=== PATIENT | female | born 1950 | race Caucasian/White ===

== ENCOUNTER → 2017-03-16 | Outpatient (CLI) | payer OTHER, BC ==
[~2017-03-16] MED LIST: AMOX500C3 PO; AMX500 PO; ASPI325T39 PO; ASPI81TA28 PO; BACLOFEN PUMP; CEFD1CAP14 PO; CEFD300C2 PO; CHOL100027 PO; CIPR-255 PO; CIPR1TAB11 PO; CMD5 PO; CNT PO; CPXI SQ; DALF10TA PO; ESCI1TAB10 PO; FRS/40 PO; FSMD/70 PO; LVNIS80 SQ; MULT-513 PO; OXYB10TA13 PO; OXYB15TA12 PO; PRED10TA PO; RISE1TAB33 PO; RISETAB3 PO; SULF800T23 PO; WARF-246 PO; ZNF4 PO
[2017-03-16 19:32] LABS: BLOOD UREA NITROGEN 26 mg/dl (7-18); CREATININE 0.84 mg/dl (0.60-1.20)
--- NOTE | 2017-03-17 06:40 | CODING QUERY NO DIAGNOSIS ---
TREATMENT RENDERED WITHOUT A DIAGNOSIS Dr. Garcia, To promote full compliance with coding requirements relating to patient care, physician participation is requested in all cases of school bus dispatcher uncertainty. Please assist us with providing a diagnosis/symptom for the test(s) below: A diagnosis/symptom was not documented on your Order. A valid diagnosis/symptom is required to bill all insurances. Please remember that we are unable to code a diagnosis of rule out, probable, possible, questionable, or suspected. Tests that require a diagnosis: * B.U.N. DIAGNOSIS: * CREATININE DIAGNOSIS: DATE OF SERVICE: 03/16/17 Provider Signature: Date: Thank you Arsen Watson [facility] Information Management Once completed, please kindly fax back to [phone] For questions please call [phone]
== END | disposition home or self-care (01) ==
LOC: C.LABBC 14:25
PROVIDERS: ATTEND Emergency Medicine
DX: M86.662 Other chronic osteomyelitis, left tibia and fibula (principal); G35 Multiple sclerosis; L97.329 Non-pressure chronic ulcer of left ankle with unspecified severity

== ENCOUNTER → 2017-03-17 | Outpatient (CLI) | payer OTHER, BC ==
[~2017-03-17] MED LIST changes: -CIPR-255 PO; +GADAVIST IV PRN
--- NOTE | 2017-03-17 08:57 | DIAGNOSTIC IMAGING REPORT ---
MRI left ankle LEFT LOWER EXT NON JOINT COMBO CLINICAL HISTORY: LT FT NON HEALING WOUND R/O OSTEO TECHNIQUE: MRI multi axial acquisition COMPARISON STUDY: None FINDINGS: Findings consistent with soft tissue edema lateral to the distal fibula. This shows moderate postcontrast enhancement. A drainable abscess or collection is not appreciated. Trace amount of periostitis involving the distal aspect of the fibula. There is a trace amount of bone marrow edema of the lateral aspect of the distal fibula. This is not felt to be sufficient to indicate osteomyelitis. No definite bony destruction is appreciated. Ankle mortise is aligned anatomically. Findings of moderate degenerative change of the articular services throughout. Collateral ligaments structures appear to be intact. Subtalar joint is intact. Mild degenerative change of the intertarsal joints. IMPRESSION: 1. Findings consistent with focal soft tissue cellulitis immediately lateral to the distal fibula. 2. Mild reactive periostitis of the distal fibula with a trace amount of reactive bone marrow edema. 3. No sufficient evidence to indicate osteomyelitis at the current time. 4. Moderate generalized degenerative change throughout . 5. No evidence for drainable abscess or collection Electronically signed by: Morales Esparza M.D. 03/17/2017 8:55 AM Dictated Date/Time: 03/17/2017 8:51 AM
== END | disposition home or self-care (01) ==
LOC: C.MRIBC 07:01
PROVIDERS: ATTEND Emergency Medicine
DX: S91.002A Unspecified open wound, left ankle, initial encounter (principal); X58.XXXA Exposure to other specified factors, initial encounter

== ENCOUNTER 2017-04-14 14:56 | Inpatient (IN) | payer OTHER, BC ==
[~2017-04-14] VITALS: Ht 168.9 cm; Wt 71.6 kg
[~2017-04-14 14:56] MED LIST changes: -AMX500 PO; -ASPI325T39 PO; -BACLOFEN PUMP; -CEFD1CAP14 PO; -CEFD300C2 PO; -CHOL100027 PO; -CIPR1TAB11 PO; -CMD5 PO; -CPXI SQ; -DALF10TA PO; -ESCI1TAB10 PO; -FRS/40 PO; -FSMD/70 PO; -GADAVIST IV PRN; -LVNIS80 SQ; -MULT-513 PO; -OXYB10TA13 PO; -OXYB15TA12 PO; -PRED10TA PO; -RISE1TAB33 PO; -SULF800T23 PO; -WARF-246 PO; -ZNF4 PO
[2017-04-14] MEDS ORDERED: ACETAMINOPHEN 500 MG TAB PO STA (15:21)
[2017-04-14] MEDS ORDERED: SODIUM CHLORIDE 0.9% 500ML 500 ML IV STA (15:21)
[2017-04-14 15:45] LABS: BASO % 0.1 %; BASO ABS # 0.01 K/uL (0-0.2); COMPLETE YES; EOS % 0.1 %; HEMATOCRIT 37.5 % (37-47); IG% 0.2 %; LYMPH % 9.5 %; LYMPH ABS # 0.78 K/uL (1.2-3.4); MEAN CELL VOLUME 96.2 fL (80-100); MEAN CORPUSCULAR HEMOGLOBIN 30.8 pg (25-34); MEAN PLATELET VOLUME 9.1 fL (7.4-10.4); MONO % 3.4 %; NEUT % 86.7 %; PLATELET COUNT 279 K/uL (130-400); WHITE BLOOD COUNT 8.24 K/uL (4.8-10.8)
--- NOTE | 2017-04-14 15:45 | DIAGNOSTIC IMAGING REPORT ---
CHEST ONE VIEW PORTABLE CLINICAL HISTORY: Atypical chest pain. Arrhythmia. COMPARISON STUDY: 01/31/2014 FINDINGS: The cardiac and mediastinal contours are normal. There is no evidence of focal pulmonary consolidation. There is no evidence of failure. No pleural effusions are visualized.[ There is minor left basilar atelectasis/scarring. There is a scoliosis. IMPRESSION: No active disease in the chest. Electronically signed by: Alvaro Chawla M.D. 04/14/2017 3:43 PM Dictated Date/Time: 04/14/2017 3:43 PM
[2017-04-14 16:10] LABS: BLOOD UREA NITROGEN 26 mg/dl (7-18); BUN/CREATININE RATIO 31.3 (10-20); CALCIUM 8.5 mg/dl (8.5-10.1); CARBON DIOXIDE 27 mmol/L (21-32); CHLORIDE 108 mmol/L (98-107); CREATININE 0.83 mg/dl (0.60-1.20); GLUCOSE 130 mg/dl (70-99); POTASSIUM 4.2 mmol/L (3.5-5.1); SODIUM 141 mmol/L (136-145)
[2017-04-14 16:21] LABS: CKMB/CK RATIO 2.3 (0-3.0)
[2017-04-14] MEDS ORDERED: OPTIRAY 320 IV PRN (16:45)
[2017-04-14 17:00] LABS: URINE APPEARANCE CLEAR (CLEAR); URINE BILIRUBIN NEG (NEG); URINE COLOR YELLOW; URINE NITRITE NEG (NEG); URINE SPECIFIC GRAVITY 1.014 (1.000-1.030); UROBILINOGEN NEG (NEG); ZZUR CULT IF INDIC CLEAN CATCH NO
[2017-04-14 17:03] LABS: MANUAL MICROSCOPIC REQUIRED? NO; REVIEW REQ? NO
--- NOTE | 2017-04-14 17:17 | DIAGNOSTIC IMAGING REPORT ---
CHEST CTA for PULMONARY ARTERIES CT DOSE: 190.56 mGy.cm HISTORY: Chest pain dyspnea TECHNIQUE: Multiaxial CT images of the chest were performed following the intravenous administration of contrast to evaluate the pulmonary arteries. Maximal intensity projection images were also obtained. COMPARISON STUDY: None. FINDINGS: Thoracic aorta shows moderate atherosclerotic change. Evaluation of the pulmonary arterial vasculature demonstrates filling defects in the right upper lobe is as well as the third order vessels of the left lower lobe. A major central embolus is not appreciated. There are emphysematous and chronic interstitial changes throughout both hemithoraces. There are considerable degenerative changes of the thoracic spine. No acute compression deformity is appreciated. IMPRESSION: 1. Study is positive for several second-order pulmonary emboli bilaterally. 2. No evidence for major central pulmonary embolus. 3. Interstitial change bilaterally components of which are chronic 4. 1 cm nodular density right base medially adjacent to the right hemidiaphragm. Routine follow-up per Fleischner criteria is suggested. Please refer to below summary of Fleischner criteria recommendations for follow-up of incidental CT nodules (Jasmina Abel, Guidelines for management of small pulmonary nodules detected on CT scans: A statement from the Fleischner Society, Radiology 237: [phone].) SOLID NODULES Solitary nodule size: <6 mm * low risk patients: no follow-up needed * high risk patients: optional CT at 12 months Solitary nodule size: 6-8 mm * low risk patients: follow-up at 6-12 months, then consider further follow-up at 18-24 months * high risk patients: initial follow-up CT at 6-12 months and then at 18-24 months if no change Solitary nodule size: >8 mm * either low or high risk patients - consider follow-up CT at 3 months, and/or CT-PET, and/or biopsy Multiple nodules size: <6 mm * low risk patients: no routine follow-up * high risk patients: optional CT at 12 months Multiple nodules size: 6-8 mm * low risk patients: follow-up at 3-6 months, then consider further follow-up at 18-24 months * high risk patients: follow-up at 3-6 months, then at 18-24 months if no change Multiple nodules size: >8 mm * low risk patients: follow-up at 3-6 months, then consider further follow-up at 18-24 months * high risk patients: follow-up at 3-6 months, then at 18-24 months if no change Note: newly detected indeterminate nodule in persons 35 years of age or older. * Low risk patients: minimal or absent history of smoking and/or other known risk factors * high risk patients: history of smoking or of other known risk factors (e.g. first degree relative with lung cancer, or exposure to asbestos, radon, uranium) * if a nodule up to 8 mm is partly solid or is ground glass further follow-up is required after 24 months to exclude possible slow growing adenocarcinoma (JOSE) SUBSOIL NODULES Solitary pure ground-glass nodule * nodule size <6 mm - no CT follow-up required * nodule size >=6 mm - follow-up CT at 6-12 months, then every 2 years until 5 years Solitary part-solid nodule * nodule size <6 mm - no CT follow-up required * nodule size >=6 mm - follow-up CT at 3-6 months. If unchanged, and solid component remains <6 mm, then annual follow-up for 5 years Multiple subsolid nodules * nodule size <6 mm - follow-up CT at 3-6 months, consider further follow-up at 2 and 4 years if stable * nodule size >=6 mm - follow-up CT at 3-6 months, subsequent management based on the most suspicious nodule(s) Electronically signed by: Morales Esparza M.D. 04/14/2017 5:16 PM Dictated Date/Time: 04/14/2017 5:12 PM
[2017-04-14 17:40] LABS: PROTHROMBIN TIME (PATIENT) 10.8 SECONDS (9.0-12.0)
[2017-04-14] MEDS ORDERED: ASPI325T39 PO (18:14)
[2017-04-14] MEDS ORDERED: RISE1TAB33 PO (18:14)
[2017-04-14] MEDS ORDERED: NITROGLYCERIN 0.4 MG SL PER TAB CHARGE SL PRN (18:15)
[2017-04-14] MEDS ORDERED: ACETAMINOPHEN 325 MG TAB PO PRN (18:15)
[2017-04-14] MEDS ORDERED: ONDANSETRON INJ 2 MG/ML 2 ML VIAL IV PRN (18:15)
[2017-04-14] MEDS ORDERED: ENOXAPARIN 80 MG/0.8 ML SYR SQ STA (18:26)
[2017-04-14] MEDS ORDERED: IV FLUIDS COMPLETED PRN (18:45)
--- NOTE | 2017-04-14 18:47 | Progress Note ---
Progress Note Date of Service April 14, 2017. Progress Note Patient was seen and evaluated with APPLIQUE SEWER, Dana Steele. Patient comes in with c/o chest pain - left sided which started in AM. Pain is constant- around 5-6 /10, non radiating, no aggravating/relieving factors. Did not take any medications for it. Associated with some SOB, palpitations. No cough, fever, chills, nausea, vomiting, abd pain, leg swelling. No recent illness. Baseline: Able to do ADLs independently, lives at home by herself, uses a walker due to MS. Cant remember when was the last time she had a fall. EXAM: Vitals : noted, not hypoxic or tachycardic Gen: AAOX3, no distress HEENT: No icterus Neck: No JVD Heart: S1, S2 Normal, no murmurs Lungs: Clear, No wheezing, rhonchi, rales Abd: Soft, non tender, no n distended, BS present Ext: Left heel: near lateral malleolus- small 2 mm wound with mild surrounding erythema, no tenderness or pus discharge. No leg swelling. Bruising on knee- left Neuro: Decreased strength B/L lower extremities, Gait imbalance - has to use a walker Labs: reviewed CT chest: IMPRESSION: 1. Study is positive for several second-order pulmonary emboli bilaterally. 2. No evidence for major central pulmonary embolus. 3. Interstitial change bilaterally components of which are chronic 4. 1 cm nodular density right base medially adjacent to the right hemidiaphragm. Routine follow-up per Fleischner criteria is suggested. EKG- ordered ASSESSMENT AND PLAN : PULMONARY EMBOLI BILATERALLY: Patient came in with c/o chest pain which started in AM with associated mild SOB. Not hypoxic, hemodynamically stable CT scan chest - Several second order PE Bilaterally, D dimer 4k -Risk factors: Prior hx of DVT in 2011, when she had the IVC filter placed as US showed peroneal vein thrombosis - which on repeat US showed progression to popliteal vein. As she was at higher risk of fall, IVC filter was placed and was not started on anticoagulant.. Hx of breast carcinoma. -Anticoagulation: Had a detailed discussion with patient about her functional status. At baseline, she is able to do ADLs, walks with walker. Has not had any falls recently and in fact doesnt recall her last fall. Is at high risk of recurrent DVTs/PEs due to prior hx and h/o breast carcinoma. Weighing the risks vs benefits, benefits outweighs the risk. Patient and sister in law by bedside- understands the complications of anticoagulation - bleeding which is a bit higher in her case, but agreeable to anticoagulation. Would prefer coumadin vs newer anticoagulants because of reversibility. -Will start on lovenox SQ BID/Coumadin -US duplex, EKG, Cardiac monitoring, Echo done on 03/29/17 and small PE. so will not repeat it PALPITATIONS ? Had some palpitations associated with chest pain. Was at Dr Schmid's office for evaluation for " erratic heart rhythm" per patient. Echo was done on 03/29/17- Grade II diastolic dysfunction, EF > 70%. -Was supposed see cardiology tomorrow because of diastolic dysfunction -Will order EKG, Trop x 3, Tele monitoring- to rule out arrhythmias MULTIPLE SCLEROSIS: -Baseline: she is able to do ADLs, walks with walker -Continue with Copaxone SQ MWF, Ampyra, Tazinidine QID PRN for MS -PT/OT HX OF BREAST CARCINOMA DVT PROPHYLAXIS Lovenox SQ Therapeutic FULL CODE per patient DISPOSITION Admission to telemetry
--- NOTE | 2017-04-14 19:03 | History and Physical ---
History & Physical Date & Time of Service: April 14, 2017 at 18:53 Chief Complaint: Chest Pains, Irratic Heart Beating Primary Care Physician: Dr. Jil Schmid History of Present Illness Patient seen and examined with Dr. Vicky Guaman 66 year old female who presents to the ER with chest pain. Patient reports her chest "felt funny" a few weeks ago. She also notes palpitations. She had an echo done as an outpatient that showed LV enlargement, EF > 70%, and grade II diastolic dysfunction. She is scheduled to see cardiology. This morning she noted left sided chest pain. She describes the pain as constant without any specific causative or alleviating factors. She denies shortness of breath. She reports she otherwise has been feeling well recently. She follows at the wound center for a left lateral ankle wound. She was recently prescribed amoxicillin however has not started taking it yet. She denies fever and chills. No abdominal pain, nausea, vomiting, or diarrhea. She denies any urinary symptoms. In the ER, patient had a CT chest that is showing BL PEs. Vitals are stable, no hypoxia or tachycardia. Past Medical/Surgical History Medical Problems: (1) Breast cancer Status: Chronic (2) DVT (deep venous thrombosis) Status: Chronic (3) Multiple sclerosis Status: Chronic (4) Neurogenic bladder Status: Chronic (5) Osteoporosis Status: Chronic (6) Raynaud disease Status: Chronic Surgical Problems: (1) H/O left mastectomy Status: Chronic (2) History of appendectomy Status: Chronic (3) History of open reduction and internal fixation (ORIF) procedure Permanent Comment: left hip Status: Chronic (4) Presence of intrathecal pump Status: Chronic (5) S/P IVC filter Status: Chronic (6) S/P partial hysterectomy Status: Chronic Family History FH: CAD (coronary artery disease) MOTHER FH: thyroid cancer SISTER Social History Smoking Status: Former Smoker Alcohol Use: none Housing status: lives alone Immunizations History of Influenza Vaccine: Yes Influenza Vaccine Date: Nov 10, 2016 History of Tetanus Vaccine?: Yes Tetanus Immunization Date: Apr 30, 2009 History of Pneumococcal: Yes Pneumococcal Date: Jul 05, 2011 Multi-Drug Resistant Organisms History of MDRO: No Allergies Coded Allergies: No Known Allergies (Unverified , 04/14/17) Home Medications Scheduled Amoxicillin (Amoxil), 500 MG PO TID Aspirin (Aspirin Ec), 650 MG PO QAM Cholecalciferol (Vitamin D 1000 Unit), 1,000 INTER.UNIT PO QAM Dalfampridine (Ampyra), 10 MG PO QAM Escitalopram Oxalate (Lexapro), 20 MG PO QAM Glatiramer Acetate (Copaxone), 20 MG SQ MWF Multivitamins/Minerals (Centrum *), 1 TAB PO QAM Oxybutynin Chloride Er (Ditropan Xl), 15 MG PO QAM Prednisone (Prednisone), 10 MG PO QAM Risedronate Sodium (Risedronate Sodium), 150 MG PO MONTHLY Tizanidine (Zanaflex ), 4 MG PO QID Miscellaneous Medications [Baclofen Pump] Review of Systems ROS per HPI, all other systems reviewed and negative Physical Exam Vital Signs Date Time Temp Pulse Resp B/P Pulse Ox O2 Delivery O2 Flow Rate FiO2 04/14/17 17:35 68 16 125/84 95 Room Air 04/14/17 16:23 71 16 109/62 95 Room Air 04/14/17 15:35 98 Room Air 04/14/17 15:28 85 04/14/17 15:09 38.0 90 18 108/57 95 Room Air please refer to Dr. Vicky Guaman's documentation for physical exam Diagnostics Laboratory Results Results Past 24 Hours Test 04/14/17 15:35 04/14/17 16:45 Range/Units White Blood Count 8.24 4.8-10.8 K/uL Red Blood Count 3.90 4.2-5.4 M/uL Hemoglobin 12.0 12.0-16.0 g/dL Hematocrit 37.5 37-47 % Mean Corpuscular Volume 96.2 80-100 fL Mean Corpuscular Hemoglobin 30.8 25-34 pg Mean Corpuscular Hemoglobin Concent 32.0 32-36 g/dl Platelet Count 279 130-400 K/uL Mean Platelet Volume 9.1 7.4-10.4 fL Neutrophils (%) (Auto) 86.7 % Lymphocytes (%) (Auto) 9.5 % Monocytes (%) (Auto) 3.4 % Eosinophils (%) (Auto) 0.1 % Basophils (%) (Auto) 0.1 % Neutrophils # (Auto) 7.14 1.4-6.5 K/uL Lymphocytes # (Auto) 0.78 1.2-3.4 K/uL Monocytes # (Auto) 0.28 0.11-0.59 K/uL Eosinophils # (Auto) 0.01 0-0.5 K/uL Basophils # (Auto) 0.01 0-0.2 K/uL RDW Standard Deviation 52.0 36.4-46.3 fL RDW Coefficient of Variation 14.8 11.5-14.5 % Immature Granulocyte % (Auto) 0.2 % Immature Granulocyte # (Auto) 0.02 0.00-0.02 K/uL Prothrombin Time 10.8 9.0-12.0 SECONDS Prothromb Time International Ratio 1.0 0.9-1.1 Activated Partial Thromboplast Time 26.1 21.0-31.0 SECONDS Partial Thromboplastin Ratio 1.0 D-Dimer 4030 0-500 ug/L FEU Sodium Level 141 136-145 mmol/L Potassium Level 4.2 3.5-5.1 mmol/L Chloride Level 108 98-107 mmol/L Carbon Dioxide Level 27 21-32 mmol/L Anion Gap 6.0 3-11 mmol/L Blood Urea Nitrogen 26 7-18 mg/dl Creatinine 0.83 0.60-1.20 mg/dl Est Creatinine Clear Calc Drug Dose 69.7 ml/min Estimated GFR () 86.4 Estimated GFR (Non- 74.5 BUN/Creatinine Ratio 31.3 10-20 Random Glucose 130 70-99 mg/dl Calcium Level 8.5 8.5-10.1 mg/dl Total Creatine Kinase 73 26-192 U/L Creatine Kinase MB 1.7 0.5-3.6 ng/ml Creatine Kinase MB Ratio 2.3 0-3.0 Troponin I < 0.015 0-0.045 ng/ml Thyroid Stimulating Hormone (TSH) 0.820 0.300-4.500 uIu/ml Urine Color YELLOW Urine Appearance CLEAR CLEAR Urine pH 6.0 4.5-7.5 Urine Specific [place] 1.014 1.000-1.030 Urine Protein NEG NEG Urine Glucose (UA) NEG NEG Urine Ketones NEG NEG Urine Occult Blood NEG NEG Urine Nitrite NEG NEG Urine Bilirubin NEG NEG Urine Urobilinogen NEG NEG Urine Leukocyte Esterase TRACE NEG Urine WBC (Auto) 1-5 0-5 /hpf Urine RBC (Auto) 0-4 0-4 /hpf Urine Hyaline Casts (Auto) 0 0-5 /lpf Urine Epithelial Cells (Auto) 10-20 0-5 /lpf Urine Bacteria (Auto) NEG NEG Diagnostic Radiology CXR IMPRESSION: No active disease in the chest. CTA CHEST IMPRESSION: 1. Study is positive for several second-order pulmonary emboli bilaterally. 2. No evidence for major central pulmonary embolus. 3. Interstitial change bilaterally components of which are chronic 4. 1 cm nodular density right base medially adjacent to the right hemidiaphragm. Routine follow-up per Fleischner criteria is suggested. Impression Assessment and Plan per Dr. Vicky Guaman: PULMONARY EMBOLI BILATERALLY: Patient came in with c/o chest pain which started in AM with associated mild SOB. Not hypoxic, hemodynamically stable CT scan chest - Several second order PE Bilaterally, D dimer 4k -Risk factors: Prior hx of DVT in 2011, when she had the IVC filter placed as US showed peroneal vein thrombosis - which on repeat US showed progression to popliteal vein. As she was at higher risk of fall, IVC filter was placed and was not started on anticoagulant.. Hx of breast carcinoma. -Anticoagulation: Had a detailed discussion with patient about her functional status. At baseline, she is able to do ADLs, walks with walker. Has not had any falls recently and in fact doesnt recall her last fall. Is at high risk of recurrent DVTs/PEs due to prior hx and h/o breast carcinoma. Weighing the risks vs benefits, benefits outweighs the risk. Patient and sister in law by bedside- understands the complications of anticoagulation - bleeding which is a bit higher in her case, but agreeable to anticoagulation. Would prefer coumadin vs newer anticoagulants because of reversibility. -Will start on lovenox SQ BID/Coumadin -US duplex, EKG, Cardiac monitoring, Echo done on 03/29/17 and small PE. so will not repeat it PALPITATIONS ? Had some palpitations associated with chest pain. Was at Dr Schmid's office for evaluation for " erratic heart rhythm" per patient. Echo was done on 03/29/17- Grade II diastolic dysfunction, EF > 70%. -Was supposed see cardiology tomorrow because of diastolic dysfunction -Will order EKG, Trop x 3, Tele monitoring- to rule out arrhythmias MULTIPLE SCLEROSIS: -Baseline: she is able to do ADLs, walks with walker -Continue with Copaxone SQ MWF, Ampyra, Tazinidine QID PRN for MS -PT/OT HX OF BREAST CARCINOMA DVT PROPHYLAXIS Lovenox SQ Therapeutic FULL CODE per patient DISPOSITION Admission to telemetry VTE Prophylaxis VTE Risk Assessment Done? Y/N: Yes Risk Level: High
[2017-04-14 19:50] VITALS: BP 177/102; PULSE 71; TEMP 36.7; O2SAT 100; Ht 168.9 cm; Wt 71.6 kg
--- NOTE | 2017-04-14 22:26 | EMERGENCY ROOM VISIT NOTE ---
History Report prepared by Adiel: Elizabeth Guillen Under the Supervision of: Dr. Ko Cain M.D. First contact with patient: 15:12 Chief Complaint: CHEST PAIN Stated Complaint: CHEST PAINS, IRRATIC HEART BEATING History of Present Illness The patient is a 66 year old female who presents to the Emergency Room with complaints of intermittent left-sided chest pains for the past 3 weeks. She has been having palpitations and shortness of breath. The patient saw her PCP three weeks ago for these symptoms and had an ECG and echocardiogram. She has a follow -up appointment with her length control tester tomorrow. The patient states that today her chest pains and palpitations have been worse and her symptoms have been constant all day. She rates her pain as an 8/10 in severity. She also reports persistent shortness of breath and a low-grade fever with a temperature of 100. She denies her chest pain radiating anywhere else. The patient denies LOC, headache, nausea, vomiting, and urinary symptoms. She notes swelling in her legs which is chronic. She also reports frequent UTIs and a chronic wound on her left ankle for which she follows with the wound care clinic. She is supposed to start amoxicillin today for this wound. Source of History: patient Onset: 3 weeks ago Position: chest (left) Symptom Intensity: 8/10 Quality: other (palpitations) Timing: intermittent Associated Symptoms: + SOB, + fevers, No LOC, No headache, No nausea, No urinary symptoms, No vomiting Review of Systems See HPI for pertinent positives & negatives. A total of 10 systems reviewed and were otherwise negative. Past Medical & Surgical Medical Problems: (1) Breast cancer (2) DVT (deep venous thrombosis) (3) Multiple sclerosis (4) Neurogenic bladder (5) Osteoporosis (6) Pulmonary embolism (7) Raynaud disease Surgical Problems: (1) H/O left mastectomy (2) History of appendectomy (3) History of open reduction and internal fixation (ORIF) procedure (4) Presence of intrathecal pump (5) S/P IVC filter (6) S/P partial hysterectomy Family History FH: thyroid cancer Social History Smoking Status: Former Smoker Alcohol Use: none Drug Use: none Marital Status: Occupation Status: retired Current/Historical Medications Scheduled Amoxicillin (Amoxil), 500 MG PO TID Aspirin (Aspirin Ec), 650 MG PO QAM Cholecalciferol (Vitamin D 1000 Unit), 1,000 INTER.UNIT PO QAM Dalfampridine (Ampyra), 10 MG PO QAM Escitalopram Oxalate (Lexapro), 20 MG PO QAM Glatiramer Acetate (Copaxone), 20 MG SQ MWF Multivitamins/Minerals (Centrum *), 1 TAB PO QAM Oxybutynin Chloride Er (Ditropan Xl), 15 MG PO QAM Prednisone (Prednisone), 10 MG PO QAM Risedronate Sodium (Risedronate Sodium), 150 MG PO MONTHLY Tizanidine (Zanaflex ), 4 MG PO QID Miscellaneous Medications [Baclofen Pump] Allergies Coded Allergies: No Known Allergies (Unverified , 04/14/17) Physical Exam Vital Signs Date Time Temp Pulse Resp B/P Pulse Ox O2 Delivery O2 Flow Rate FiO2 04/14/17 17:35 68 16 125/84 95 Room Air 04/14/17 16:23 71 16 109/62 95 Room Air 04/14/17 15:35 98 Room Air 04/14/17 15:28 85 04/14/17 15:09 38.0 90 18 108/57 95 Room Air Physical Exam GENERAL: Patient is mildly anxious appearing and in no acute distress. HEENT: No acute trauma, normocephalic atraumatic, mucous membranes moist, no nasal congestion, no scleral icterus. NECK: No stridor, no adenopathy, no meningismus, trachea is midline. LUNGS: No dyspnea. Clear to auscultation and equal bilaterally. No wheeze, no rhonchi. HEART: Regular rate and rhythm. No murmurs, rubs, gallops appreciated. ABDOMEN: Soft, nontender, bowel sounds positive, no masses appreciated, no peritonitis. BACK: No midline tenderness, no CVA tenderness EXTREMITIES: Venous stasis changes bilateral lower legs. Small ulcer lateral left malleolus, no active drainage, no surrounding cellulitis, no pain with ROM of the ankle. NEUROLOGIC: Alert and oriented, no acute motor or sensory deficits, no focal weakness, cranial nerves grossly intact, generalized weakness of the bilateral lower extremities that is chronic. SKIN: No rash, no jaundice, no diaphoresis. Medical Decision & Procedures ER Provider Diagnostic Interpretation: Radiology results and stated below per my review and radiologist interpretation: CHEST ONE VIEW PORTABLE CLINICAL HISTORY: Atypical chest pain. Arrhythmia. COMPARISON STUDY: 01/31/2014 FINDINGS: The cardiac and mediastinal contours are normal. There is no evidence of focal pulmonary consolidation. There is no evidence of failure. No pleural effusions are visualized.[ There is minor left basilar atelectasis/scarring. There is a scoliosis. IMPRESSION: No active disease in the chest. Electronically signed by: Alvaro Chawla M.D. 04/14/2017 3:43 PM Dictated Date/Time: 04/14/2017 3:43 PM CHEST CTA for PULMONARY ARTERIES CT DOSE: 190.56 mGy.cm HISTORY: Chest pain dyspnea TECHNIQUE: Multiaxial CT images of the chest were performed following the intravenous administration of contrast to evaluate the pulmonary arteries. Maximal intensity projection images were also obtained. COMPARISON STUDY: None. FINDINGS: Thoracic aorta shows moderate atherosclerotic change. Evaluation of the pulmonary arterial vasculature demonstrates filling defects in the right upper lobe is as well as the third order vessels of the left lower lobe. A major central embolus is not appreciated. There are emphysematous and chronic interstitial changes throughout both hemithoraces. There are considerable degenerative changes of the thoracic spine. No acute compression deformity is appreciated. IMPRESSION: 1. Study is positive for several second-order pulmonary emboli bilaterally. 2. No evidence for major central pulmonary embolus. 3. Interstitial change bilaterally components of which are chronic 4. 1 cm nodular density right base medially adjacent to the right hemidiaphragm. Routine follow-up per Fleischner criteria is suggested. Please refer to below summary of Fleischner criteria recommendations for follow-up of incidental CT nodules (Jasmina Abel, Guidelines for management of small pulmonary nodules detected on CT scans: A statement from the Fleischner Society, Radiology 237: [phone].) SOLID NODULES Solitary nodule size: <6 mm * low risk patients: no follow-up needed * high risk patients: optional CT at 12 months Solitary nodule size: 6-8 mm * low risk patients: follow-up at 6-12 months, then consider further follow-up at 18-24 months * high risk patients: initial follow-up CT at 6-12 months and then at 18-24 months if no change Solitary nodule size: >8 mm * either low or high risk patients - consider follow-up CT at 3 months, and/or CT-PET, and/or biopsy Multiple nodules size: <6 mm * low risk patients: no routine follow-up * high risk patients: optional CT at 12 months Multiple nodules size: 6-8 mm * low risk patients: follow-up at 3-6 months, then consider further follow-up at 18-24 months * high risk patients: follow-up at 3-6 months, then at 18-24 months if no change Multiple nodules size: >8 mm * low risk patients: follow-up at 3-6 months, then consider further follow-up at 18-24 months * high risk patients: follow-up at 3-6 months, then at 18-24 months if no change Note: newly detected indeterminate nodule in persons 35 years of age or older. * Low risk patients: minimal or absent history of smoking and/or other known risk factors * high risk patients: history of smoking or of other known risk factors (e.g. first degree relative with lung cancer, or exposure to asbestos, radon, uranium) * if a nodule up to 8 mm is partly solid or is ground glass further follow-up is required after 24 months to exclude possible slow growing adenocarcinoma (JOSE) SUBSOIL NODULES Solitary pure ground-glass nodule * nodule size <6 mm - no CT follow-up required * nodule size >=6 mm - follow-up CT at 6-12 months, then every 2 years until 5 years Solitary part-solid nodule * nodule size <6 mm - no CT follow-up required * nodule size >=6 mm - follow-up CT at 3-6 months. If unchanged, and solid component remains <6 mm, then annual follow-up for 5 years Multiple subsolid nodules * nodule size <6 mm - follow-up CT at 3-6 months, consider further follow-up at 2 and 4 years if stable * nodule size >=6 mm - follow-up CT at 3-6 months, subsequent management based on the most suspicious nodule(s) Electronically signed by: Morales Esparza M.D. 04/14/2017 5:16 PM Dictated Date/Time: 04/14/2017 5:12 PM Laboratory Results 04/14/17 15:35 Red Blood Count 3.90, Mean Corpuscular Volume 96.2, Mean Corpuscular Hemoglobin 30.8, Mean Corpuscular Hemoglobin Concent 32.0, Mean Platelet Volume 9.1, Neutrophils (%) (Auto) 86.7, Lymphocytes (%) (Auto) 9.5, Monocytes (%) (Auto) 3.4, Eosinophils (%) (Auto) 0.1, Basophils (%) (Auto) 0.1, Neutrophils # (Auto) 7.14, Lymphocytes # (Auto) 0.78, Monocytes # (Auto) 0.28, Eosinophils # (Auto) 0.01, Basophils # (Auto) 0.01 04/14/17 15:35 Test 04/14/17 15:35 04/14/17 16:45 White Blood Count 8.24 K/uL (4.8-10.8) Red Blood Count 3.90 M/uL (4.2-5.4) Hemoglobin 12.0 g/dL (12.0-16.0) Hematocrit 37.5 % (37-47) Mean Corpuscular Volume 96.2 fL (80-100) Mean Corpuscular Hemoglobin 30.8 pg (25-34) Mean Corpuscular Hemoglobin Concent 32.0 g/dl (32-36) Platelet Count 279 K/uL (130-400) Mean Platelet Volume 9.1 fL (7.4-10.4) Neutrophils (%) (Auto) 86.7 % Lymphocytes (%) (Auto) 9.5 % Monocytes (%) (Auto) 3.4 % Eosinophils (%) (Auto) 0.1 % Basophils (%) (Auto) 0.1 % Neutrophils # (Auto) 7.14 K/uL (1.4-6.5) Lymphocytes # (Auto) 0.78 K/uL (1.2-3.4) Monocytes # (Auto) 0.28 K/uL (0.11-0.59) Eosinophils # (Auto) 0.01 K/uL (0-0.5) Basophils # (Auto) 0.01 K/uL (0-0.2) RDW Standard Deviation 52.0 fL (36.4-46.3) RDW Coefficient of Variation 14.8 % (11.5-14.5) Immature Granulocyte % (Auto) 0.2 % Immature Granulocyte # (Auto) 0.02 K/uL (0.00-0.02) Prothrombin Time 10.8 SECONDS (9.0-12.0) Prothromb Time International Ratio 1.0 (0.9-1.1) Activated Partial Thromboplast Time 26.1 SECONDS (21.0-31.0) Partial Thromboplastin Ratio 1.0 D-Dimer 4030 ug/L FEU (0-500) Anion Gap 6.0 mmol/L (3-11) Est Creatinine Clear Calc Drug Dose 69.7 ml/min Estimated GFR () 86.4 Estimated GFR (Non- 74.5 BUN/Creatinine Ratio 31.3 (10-20) Calcium Level 8.5 mg/dl (8.5-10.1) Total Creatine Kinase 73 U/L (26-192) Creatine Kinase MB 1.7 ng/ml (0.5-3.6) Creatine Kinase MB Ratio 2.3 (0-3.0) Thyroid Stimulating Hormone (TSH) 0.820 uIu/ml (0.300-4.500) Urine Color YELLOW Urine Appearance CLEAR (CLEAR) Urine pH 6.0 (4.5-7.5) Urine Specific [place] 1.014 (1.000-1.030) Urine Protein NEG (NEG) Urine Glucose (UA) NEG (NEG) Urine Ketones NEG (NEG) Urine Occult Blood NEG (NEG) Urine Nitrite NEG (NEG) Urine Bilirubin NEG (NEG) Urine Urobilinogen NEG (NEG) Urine Leukocyte Esterase TRACE (NEG) Urine WBC (Auto) 1-5 /hpf (0-5) Urine RBC (Auto) 0-4 /hpf (0-4) Urine Hyaline Casts (Auto) 0 /lpf (0-5) Urine Epithelial Cells (Auto) 10-20 /lpf (0-5) Urine Bacteria (Auto) NEG (NEG) Laboratory results as reviewed by me. Medications Administered Medications (Trade) Dose Ordered Sig/Fernando Route Start Time Stop Time Status Last Admin Dose Admin Acetaminophen 1000 mg 1,000 mg NOW STAT PO 04/14/17 15:21 04/14/17 15:24 DC 04/14/17 16:20 1,000 MG Sodium Chloride (Nss 500ml) 500 ml @ 999 mls/hr Q31M STAT IV 04/14/17 15:21 04/14/17 15:51 DC 04/14/17 16:19 999 MLS/HR Enoxaparin Sodium (Lovenox Inj) 70 mg ONE STAT SQ 04/14/17 18:26 04/14/17 18:28 DC 04/14/17 19:11 70 MG ECG Indication: chest pain Rate (beats per minute): 88 Rhythm: normal sinus Findings: no acute ischemic change, no ectopy Comparison ECG Date: 10/21/15 Change: no significant change ED Course 1514: The patient was evaluated in room A3. A complete history and physical exam was performed. 1521: NSS 500 ml @ 999 mls/hr IV, Tylenol tab 1000 mg PO 1632: I updated the patient about her results. She is feeling better at this time and agreeable to a CT PE. She has had clots in the past. She notes that she had an MRI of her left ankle recently for evaluation of a possible bone infection. She had a filtered placed in IVC for previous blood clots. 1741: I reassessed the patient at this time. She is feeling better and resting comfortably. I discussed the results and treatment plan with the patient. I answered all pertaining questions that she had. She expressed understanding and verbalized agreement. 174: I spoke with KEVIN Mcadams. We discussed the patients case and the patient will be evaluated by the [facility] for further management. Medical Decision Differential: Cardiac Ischemia (STEMI, NSTEMI, Unstable Angina, etc), Aortic Dissection, Arrhythmia, Pulmonary Embolism, Pneumonia, Pneumothorax, MSK, Infectious, Pericarditis/Myocarditis, Esophageal Rupture, Gastrointestinal, amongst other pathologies entertained. Very pleasant 66 yr old female with increasing chest pain and shortness over breath over last 2 weeks. History of MS with weakness, venous stasis, and on chronic steroids. EKG and Trop negative. Labs look good other than Dimer which is significantly elevated. Given this went ahead with CT PE study revealing bilateral PEs. Not hypoxic, not tachy and no hypotension. Will hold on anti-coagulation and defer choice to hospitalist. She had mild fever on arrival without clear evidence of infectious etiology other than ulcer ankle. Ankle ulcer without surrounding erythema. Suspect fever was PE related though can have further monitoring as inpatient. Will hold on any broad spectrum empiric abx. Consults Time Called: 1741 Consulting Physician: KEVIN Mcadams Returned Call: [phone] I spoke with KEVIN Mcadams. We discussed the patients case and the patient will be evaluated by the [facility] for further management. Impression Primary Impression: Bilateral pulmonary embolism Additional Impressions: Substernal chest pain Ulcer of left ankle Scribe Attestation The scribe's documentation has been prepared under my direction and personally reviewed by me in its entirety. I confirm that the note above accurately reflects all work, treatment, procedures, and medical decision making performed by me. Departure Information Dispostion Being Evaluated By Hospitalist Referrals Kg Schmid D.O. (PCP) Patient Instructions My [facility] Problem Qualifiers Additional Impressions: Ulcer of left ankle Non-pressure ulcer stage: unspecified non-pressure ulcer stage Qualified Codes: L97.329 - Non-pressure chronic ulcer of left ankle with unspecified severity
--- NOTE | 2017-04-14 22:49 | DIAGNOSTIC IMAGING REPORT ---
BILATERAL LOWER EXTREMITY VENOUS DOPPLER HISTORY: Pain. Edema. RULE OUT DVT COMPARISON STUDY: None. FINDINGS: There is normal compressibility, flow, and augmentation within the bilateral lower extremity deep venous systems. IMPRESSION: No DVT within the right or left lower extremity. Electronically signed by: Morales Esparza M.D. 04/14/2017 10:48 PM Dictated Date/Time: 04/14/2017 10:47 PM
[2017-04-14 23:25] VITALS: BP 143/82; PULSE 64; TEMP 36.4; O2SAT 98
[2017-04-14 23:29] VITALS: BP 168/98
[2017-04-15] VITALS (7 sets, daily range): BP systolic 105–152; BP diastolic 71–99; PULSE 66–92; TEMP 36.5–36.9; O2SAT 95–99
[2017-04-15 03:14] LABS: HEMATOCRIT 36.8 % (37-47); MEAN CELL VOLUME 94.8 fL (80-100); MEAN CORPUSCULAR HEMOGLOBIN 31.2 pg (25-34); MEAN CORPUSCULAR HGB CONC 32.9 g/dl (32-36); MEAN PLATELET VOLUME 8.8 fL (7.4-10.4); PLATELET COUNT 252 K/uL (130-400); RED BLOOD COUNT 3.88 M/uL (4.2-5.4); WHITE BLOOD COUNT 5.68 K/uL (4.8-10.8)
[2017-04-15 03:27] LABS: PROTHROMBIN TIME (PATIENT) 10.8 SECONDS (9.0-12.0)
[2017-04-15 03:32] LABS: BLOOD UREA NITROGEN 20 mg/dl (7-18); BUN/CREATININE RATIO 29.4 (10-20); CALCIUM 8.3 mg/dl (8.5-10.1); CARBON DIOXIDE 30 mmol/L (21-32); CHLORIDE 109 mmol/L (98-107); CREATININE 0.69 mg/dl (0.60-1.20); GLUCOSE 83 mg/dl (70-99); POTASSIUM 3.9 mmol/L (3.5-5.1); SODIUM 145 mmol/L (136-145)
[2017-04-15] MEDS: CEROVITE ADV FORMULA TAB PO SCH (08:43)
[2017-04-15] MEDS: ESCITALOPRAM OXALATE 20 MG TAB PO SCH (08:43)
[2017-04-15] MEDS: OXYBUTYNIN CHLORIDE 5 MG TABCR PO SCH (08:43)
[2017-04-15] MEDS: ENOXAPARIN 80 MG/0.8 ML SYR SQ SCH ×2 (08:44→21:44)
[2017-04-15] MEDS ORDERED: NURSING VERBAL MED ORDER ONE ×2 (09:00→13:30)
[2017-04-15] MEDS ORDERED: TIZANIDINE 4 MG PO SCH (13:00)
[2017-04-15] MEDS: TIZANIDINE 4 MG PO SCH ×2 (14:00→16:24)
--- NOTE | 2017-04-15 15:08 | Progress Note ---
Internal Med Progress Note Date of Service: April 15, 2017. Provider Documentation: SUBJECTIVE: Patient is doing well. Still has some left chest pain, non radiating No SOB, palpitations, nausea, vomiting. OBJECTIVE: Vital Signs-as noted below Exam: Gen: AAOX3, no distress HEENT: No icterus Neck: No JVD Heart: S1, S2 Normal, no murmurs Lungs: Clear, No wheezing, rhonchi, rales Abd: Soft, non tender, no n distended, BS present Ext: Left heel: near lateral malleolus- small 2 mm wound with mild surrounding erythema, no tenderness or pus discharge. No leg swelling. Bruising on knee- left Neuro: Decreased strength B/L lower extremities, Gait imbalance - has to use a walker Lab data as noted below.; Labs: reviewed CT chest: IMPRESSION: 1. Study is positive for several second-order pulmonary emboli bilaterally. 2. No evidence for major central pulmonary embolus. 3. Interstitial change bilaterally components of which are chronic 4. 1 cm nodular density right base medially adjacent to the right hemidiaphragm. Routine follow-up per Fleischner criteria is suggested. ASSESSMENT & PLAN: ASSESSMENT AND PLAN : PULMONARY EMBOLI BILATERALLY: Patient came in with c/o chest pain which started in AM with associated mild SOB. Not hypoxic, hemodynamically stable CT scan chest - Several second order PE Bilaterally, D dimer 4k -Risk factors: Prior hx of DVT in 2011, when she had the IVC filter placed as US showed peroneal vein thrombosis - which on repeat US showed progression to popliteal vein. As she was at higher risk of fall, IVC filter was placed and was not started on anticoagulant.. Hx of breast carcinoma. -Anticoagulation: Had a detailed discussion with patient about her functional status. At baseline, she is able to do ADLs, walks with walker. Has not had any falls recently and in fact doesnt recall her last fall. Is at high risk of recurrent DVTs/PEs due to prior hx and h/o breast carcinoma. Weighing the risks vs benefits, benefits outweighs the risk. Patient and sister in law by bedside- understands the complications of anticoagulation - bleeding which is a bit higher in her case, but agreeable to anticoagulation. Would prefer coumadin vs newer anticoagulants because of reversibility. -Started on lovenox SQ BID/Coumadin on 04/14/17 -US duplex- negative, Cardiac monitoring- No arrhythmias, Echo done on 03/29/17 and small PE. so will not repeat it PALPITATIONS ? Had some palpitations associated with chest pain. Was at Dr Schmid's office for routine visit---> Found to have a murmur per medical student--> Ordered Echo showed diastolic dysfunction. Results were conveyed to patient by nurse at office " Swollen heart" ---> Patient got confused and set up cardiology office visit. Echo was done on 03/29/17- Grade II diastolic dysfunction, EF > 70%, No LVH. -EKG- NSR, Trop x 2- negative, Tele monitoring- No arrhythmias. -No indication for cardiology evaluation MULTIPLE SCLEROSIS: -Baseline: she is able to do ADLs, walks with walker -Continue with Copaxone SQ MWF, Ampyra, Tazinidine QID PRN for MS -PT/OT HX OF BREAST CARCINOMA DVT PROPHYLAXIS Lovenox SQ Therapeutic FULL CODE per patient DISPOSITION Ok to transfer to med-surg. Discussed with daughter/sister in law by bedside. Vital Signs: Date Time Temp Pulse Resp B/P Pulse Ox O2 Delivery O2 Flow Rate FiO2 04/15/17 12:00 36.6 79 18 131/88 99 Room Air 04/15/17 12:00 Room Air 04/15/17 08:23 36.8 92 18 152/99 96 04/15/17 08:00 Room Air 04/15/17 04:00 Room Air 04/15/17 03:50 36.9 79 18 105/71 95 Room Air 04/15/17 00:00 98 Room Air 04/14/17 23:29 168/98 04/14/17 23:25 36.4 64 18 143/82 98 Room Air 04/14/17 19:50 36.7 71 18 177/102 100 Room Air 04/14/17 19:13 75 16 171/106 95 04/14/17 17:35 68 16 125/84 95 Room Air 04/14/17 16:23 71 16 109/62 95 Room Air 04/14/17 15:35 98 Room Air 04/14/17 15:28 85 04/14/17 15:09 38.0 90 18 108/57 95 Room Air Lab Results: Results Past 24 Hours Test 04/14/17 15:35 5/18/17 16:45 04/14/17 21:08 04/15/17 03:07 Range/Units White Blood Count 8.24 5.68 4.8-10.8 K/uL Red Blood Count 3.90 3.88 4.2-5.4 M/uL Hemoglobin 12.0 12.1 12.0-16.0 g/dL Hematocrit 37.5 36.8 37-47 % Mean Corpuscular Volume 96.2 94.8 80-100 fL Mean Corpuscular Hemoglobin 30.8 31.2 25-34 pg Mean Corpuscular Hemoglobin Concent 32.0 32.9 32-36 g/dl Platelet Count 279 252 130-400 K/uL Mean Platelet Volume 9.1 8.8 7.4-10.4 fL Neutrophils (%) (Auto) 86.7 % Lymphocytes (%) (Auto) 9.5 % Monocytes (%) (Auto) 3.4 % Eosinophils (%) (Auto) 0.1 % Basophils (%) (Auto) 0.1 % Neutrophils # (Auto) 7.14 1.4-6.5 K/uL Lymphocytes # (Auto) 0.78 1.2-3.4 K/uL Monocytes # (Auto) 0.28 0.11-0.59 K/uL Eosinophils # (Auto) 0.01 0-0.5 K/uL Basophils # (Auto) 0.01 0-0.2 K/uL RDW Standard Deviation 52.0 51.5 36.4-46.3 fL RDW Coefficient of Variation 14.8 14.8 11.5-14.5 % Immature Granulocyte % (Auto) 0.2 % Immature Granulocyte # (Auto) 0.02 0.00-0.02 K/uL Prothrombin Time 10.8 10.8 9.0-12.0 SECONDS Prothromb Time International Ratio 1.0 1.0 0.9-1.1 Activated Partial Thromboplast Time 26.1 21.0-31.0 SECONDS Partial Thromboplastin Ratio 1.0 D-Dimer 4030 0-500 ug/L FEU Sodium Level 141 145 136-145 mmol/L Potassium Level 4.2 3.9 3.5-5.1 mmol/L Chloride Level 108 109 98-107 mmol/L Carbon Dioxide Level 27 30 21-32 mmol/L Anion Gap 6.0 6.0 3-11 mmol/L Blood Urea Nitrogen 26 20 7-18 mg/dl Creatinine 0.83 0.69 0.60-1.20 mg/dl Est Creatinine Clear Calc Drug Dose 69.7 78.6 ml/min Estimated GFR () 86.4 106.6 Estimated GFR (Non- 74.5 92.0 BUN/Creatinine Ratio 31.3 29.4 10-20 Random Glucose 130 83 70-99 mg/dl Calcium Level 8.5 8.3 8.5-10.1 mg/dl Total Creatine Kinase 73 26-192 U/L Creatine Kinase MB 1.7 0.5-3.6 ng/ml Creatine Kinase MB Ratio 2.3 0-3.0 Troponin I < 0.015 < 0.015 < 0.015 0-0.045 ng/ml Thyroid Stimulating Hormone (TSH) 0.820 0.300-4.500 uIu/ml Urine Color YELLOW Urine Appearance CLEAR CLEAR Urine pH 6.0 4.5-7.5 Urine Specific [place] 1.014 1.000-1.030 Urine Protein NEG NEG Urine Glucose (UA) NEG NEG Urine Ketones NEG NEG Urine Occult Blood NEG NEG Urine Nitrite NEG NEG Urine Bilirubin NEG NEG Urine Urobilinogen NEG NEG Urine Leukocyte Esterase TRACE NEG Urine WBC (Auto) 1-5 0-5 /hpf Urine RBC (Auto) 0-4 0-4 /hpf Urine Hyaline Casts (Auto) 0 0-5 /lpf Urine Epithelial Cells (Auto) 10-20 0-5 /lpf Urine Bacteria (Auto) NEG NEG
[2017-04-15] MEDS: WARFARIN SOD 5 MG TAB PO SCH (16:24)
[2017-04-16] VITALS (7 sets, daily range): BP systolic 125–144; BP diastolic 68–98; PULSE 72–92; TEMP 36.5–37.3; O2SAT 92–100
[2017-04-16 06:41] LABS: PROTHROMBIN TIME (PATIENT) 10.7 SECONDS (9.0-12.0)
[2017-04-16] MEDS: TIZANIDINE 4 MG PO SCH ×4 (07:39→18:07)
[2017-04-16] MEDS: OXYBUTYNIN CHLORIDE 5 MG TABCR PO SCH (07:40)
[2017-04-16] MEDS: ESCITALOPRAM OXALATE 20 MG TAB PO SCH (07:41)
[2017-04-16] MEDS: CEROVITE ADV FORMULA TAB PO SCH (07:41)
[2017-04-16] MEDS: ENOXAPARIN 80 MG/0.8 ML SYR SQ SCH ×2 (10:35→21:09)
--- NOTE | 2017-04-16 11:54 | Progress Note ---
Internal Med Progress Note Date of Service: April 16, 2017. Provider Documentation: SUBJECTIVE: Patient is doing well. Still has some left chest pain, non radiating--> but overall improving in intensity No SOB, palpitations, nausea, vomiting. Not hypoxic OBJECTIVE: Vital Signs-as noted below Exam: Gen: AAOX3, no distress HEENT: No icterus Neck: No JVD Heart: S1, S2 Normal, no murmurs Lungs: Clear, No wheezing, rhonchi, rales Abd: Soft, non tender, no n distended, BS present Ext: Left heel: near lateral malleolus- small 2 mm wound with mild surrounding erythema, no tenderness or pus discharge. No leg swelling. Bruising on knee- left Neuro: Decreased strength B/L lower extremities, Gait imbalance - has to use a walker Lab data as noted below.; Labs: reviewed CT chest: IMPRESSION: 1. Study is positive for several second-order pulmonary emboli bilaterally. 2. No evidence for major central pulmonary embolus. 3. Interstitial change bilaterally components of which are chronic 4. 1 cm nodular density right base medially adjacent to the right hemidiaphragm. Routine follow-up per Fleischner criteria is suggested. ASSESSMENT & PLAN: ASSESSMENT AND PLAN : PULMONARY EMBOLI BILATERALLY: Patient came in with c/o chest pain which started in AM with associated mild SOB. Not hypoxic, hemodynamically stable CT scan chest - Several second order PE Bilaterally, D dimer 4k -Risk factors: Prior hx of DVT in 2011, when she had the IVC filter placed as US showed peroneal vein thrombosis - which on repeat US showed progression to popliteal vein. As she was at higher risk of fall, IVC filter was placed and was not started on anticoagulant.. Hx of breast carcinoma. -Anticoagulation: Had a detailed discussion with patient about her functional status. At baseline, she is able to do ADLs, walks with walker. Has not had any falls recently and in fact doesnt recall her last fall. Is at high risk of recurrent DVTs/PEs due to prior hx and h/o breast carcinoma. Weighing the risks vs benefits, benefits outweighs the risk. Patient and sister in law by bedside- understands the complications of anticoagulation - bleeding which is a bit higher in her case, but agreeable to anticoagulation. Would prefer coumadin vs newer anticoagulants because of reversibility. -Started on lovenox SQ BID/Coumadin on 04/14/17; Coumadin 5 mg started on . -US duplex- negative, Cardiac monitoring- No arrhythmias, Echo done on 03/29/17 and small PE. so will not repeat it PALPITATIONS ? Had some palpitations associated with chest pain. Was at Dr Schmid's office for routine visit---> Found to have a murmur per medical student--> Ordered Echo showed diastolic dysfunction, Mild MR. Results were conveyed to patient by nurse at office " Swollen heart" ---> Patient got confused and set up cardiology office visit. Echo was done on 03/29/17- Grade II diastolic dysfunction, EF > 70%, No LVH. -EKG- NSR, Trop x 2- negative, Tele monitoring- No arrhythmias. -No indication for cardiology evaluation PULMONARY NODULE Coincidently noted on CT scan 1 cm right medial lung base -Per criteria needs follow up CT scan in 3 months -Monitor outpatient- enrolled in lung nodule program MULTIPLE SCLEROSIS: -Baseline: she is able to do ADLs, walks with walker -Continue with Copaxone SQ MWF, Ampyra, Tazinidine QID PRN for MS -PT/OT HX OF BREAST CARCINOMA DVT PROPHYLAXIS Lovenox SQ Therapeutic FULL CODE per patient DISPOSITION Discharge to home tomorrow. Patient says she would feel more comfortable with discharge in AM. Discussed with daughter by bedside Vital Signs: Date Time Temp Pulse Resp B/P Pulse Ox O2 Delivery O2 Flow Rate FiO2 04/16/17 11:47 37.3 92 20 138/98 98 Room Air 04/16/17 08:38 94 Room Air 04/16/17 08:00 92 Room Air 04/16/17 07:57 36.8 82 20 128/68 92 Room Air 04/16/17 00:00 Room Air 04/15/17 23:56 36.6 66 14 122/75 99 04/15/17 18:52 36.5 66 18 133/83 98 Room Air 04/15/17 17:00 Room Air 04/15/17 15:15 36.9 75 18 121/84 97 Room Air 04/15/17 12:00 36.6 79 18 131/88 99 Room Air 04/15/17 12:00 Room Air Lab Results: Results Past 24 Hours Test 04/16/17 06:10 Range/Units Prothrombin Time 10.7 9.0-12.0 SECONDS Prothromb Time International Ratio 1.0 0.9-1.1
[2017-04-16] MEDS: WARFARIN SOD 5 MG TAB PO SCH (15:48)
[2017-04-17] MEDS: TIZANIDINE 4 MG PO SCH ×2 (07:47→12:12)
[2017-04-17] MEDS: OXYBUTYNIN CHLORIDE 5 MG TABCR PO SCH (07:48)
[2017-04-17] MEDS: CEROVITE ADV FORMULA TAB PO SCH (07:49)
[2017-04-17] MEDS: ESCITALOPRAM OXALATE 20 MG TAB PO SCH (07:49)
[2017-04-17 07:56] VITALS: O2SAT 98
[2017-04-17 08:08] VITALS: BP 136/87; PULSE 90; TEMP 37; O2SAT 96
[2017-04-17] MEDS: ENOXAPARIN 80 MG/0.8 ML SYR SQ SCH (09:31)
--- NOTE | 2017-04-17 09:40 | Progress Note ---
Internal Med Progress Note Date of Service: April 17, 2017. Provider Documentation: SUBJECTIVE: Patient is doing well. Left chest pain has almost resolved No SOB, palpitations, nausea, vomiting. Eager to be discharged Not hypoxic OBJECTIVE: Vital Signs-as noted below Exam: Gen: AAOX3, no distress HEENT: No icterus Neck: No JVD Heart: S1, S2 Normal, no murmurs Lungs: Clear, No wheezing, rhonchi, rales Abd: Soft, non tender, no n distended, BS present Ext: Left heel: near lateral malleolus- small 2 mm wound with mild surrounding erythema, no tenderness or pus discharge. No leg swelling. Bruising on knee- left Neuro: Decreased strength B/L lower extremities, Gait imbalance - has to use a walker Lab data as noted below.; Labs: reviewed CT chest: IMPRESSION: 1. Study is positive for several second-order pulmonary emboli bilaterally. 2. No evidence for major central pulmonary embolus. 3. Interstitial change bilaterally components of which are chronic 4. 1 cm nodular density right base medially adjacent to the right hemidiaphragm. Routine follow-up per Fleischner criteria is suggested. ASSESSMENT & PLAN: ASSESSMENT AND PLAN : PULMONARY EMBOLI BILATERALLY: Patient came in with c/o chest pain which started in AM with associated mild SOB. Not hypoxic, hemodynamically stable CT scan chest - Several second order PE Bilaterally, D dimer 4k -Risk factors: Prior hx of DVT in 2011, when she had the IVC filter placed as US showed peroneal vein thrombosis - which on repeat US showed progression to popliteal vein. As she was at higher risk of fall, IVC filter was placed and was not started on anticoagulant.. Hx of breast carcinoma. -Anticoagulation: Had a detailed discussion with patient about her functional status. At baseline, she is able to do ADLs, walks with walker. Has not had any falls recently and in fact doesnt recall her last fall. Is at high risk of recurrent DVTs/PEs due to prior hx and h/o breast carcinoma. Weighing the risks vs benefits, benefits outweighs the risk. Patient, daughter, sister in law by bedside- understands the complications of anticoagulation - bleeding which is a bit higher in her case, but agreeable to anticoagulation. Would prefer coumadin vs newer anticoagulants because of reversibility. -Started on lovenox SQ BID/Coumadin on 04/14/17; Coumadin 5 mg started on . INR still 1.0 --> Increase coumadin to 7.5 mg daily today. Follow up with coumadin clinic -US duplex- negative, Cardiac monitoring- No arrhythmias, Echo done on 03/29/17 and small PE. so will not repeat it PALPITATIONS ? Had some palpitations associated with chest pain on admission, none since than. Was at Dr Schmid's office for routine visit---> Found to have a murmur per medical student--> Ordered Echo showed diastolic dysfunction, Mild MR. Results were conveyed to patient by nurse at office " Swollen heart" ---> Patient got confused and set up cardiology office visit. Echo was done on 03/29/17- Grade II diastolic dysfunction, EF > 70%, No LVH. -EKG- NSR, Trop x 2- negative, Tele monitoring- No arrhythmias. 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 She feels she is at her baseline level of functioning. HX OF BREAST CARCINOMA DVT PROPHYLAXIS Lovenox SQ Therapeutic FULL CODE per patient DISPOSITION Ok to discharge home today. 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 She feels she is at her baseline level of functioning. Prefers her personal injury legal assistant over home PT/OT which was offered to her Lovenox covered per SS Follow up with PCP in 1 week Follow up with coumadin clinic on tuesday Vital Signs: Date Time Temp Pulse Resp B/P Pulse Ox O2 Delivery O2 Flow Rate FiO2 04/17/17 08:08 37.0 90 18 136/87 96 Room Air 04/17/17 07:56 98 Room Air 04/17/17 00:00 Room Air 04/16/17 23:28 36.5 72 20 144/88 94 Room Air 04/16/17 16:03 36.6 85 20 125/90 100 Room Air 04/16/17 16:00 98 Room Air 04/16/17 11:47 37.3 92 20 138/98 98 Room Air
[2017-04-17] MEDS ORDERED: LVNIS80 SQ (09:42)
[2017-04-17] MEDS ORDERED: CMD5 PO (09:42)
[2017-04-17 09:45] VITALS: BP 136/87; PULSE 90; TEMP 37; O2SAT 96
--- NOTE | 2017-04-17 09:47 | Discharge Summary ---
Discharge Summary Date of Service April 17, 2017. Discharge Summary Admission Date: April 14, 2017 at 19:02 Discharge Date: April 17, 2017 Discharge Disposition: Home Principal Diagnosis: 1. Pulmonary Embolism, Bilaterally 2. Incidental finding of pulmonary nodule Secondary Diagnoses/Problems: 1. Multiple sclerosis 2. Ambulatory dysfunction Procedures: Tele monitoring Lovenox SQ/Coumadin bridging CT chest US duplex PT/OT Consultations: None Pending Studies/Follow-Up: . Instructions / Follow-Up Instructions / Follow-Up MEDICATION CHANGES: 1. Lovenox 70 mg q 12 hours along with coumadin till INR > 2 (INR today 1). You will stop Lovenox after INR is > 2 and continue with coumadin only 2. Coumadin - 7.5 mg daily in evening at 4 PM. Avoid Aspirin high dose while being on coumadin due to higher risk of bleeding. FOLLOW UP 1. Follow up with your PCP in 1 week. Office will call you for appt date/time 2. Follow up with coumadin clinic on Tuesday MONITOR INR monitoring outpatient per coumadin clinic Continue with exercise routine per your personal security specialist. Medication Reconciliation New Medications: Warfarin Sod (Coumadin) 5 Mg Tab 7.5 MG PO DAILY for 30 Days, #45 TAB Enoxaparin (Lovenox) 80 Mg/0.8 Ml Inj 70 MG SQ Q12 for 7 Days, #7 SYR 0 Refills Continued Medications: Cholecalciferol (Vitamin D 1000 Unit) 1,000 Unit Cap 1000 INTER.UNIT PO QAM, CAP Dalfampridine (Ampyra) 10 Mg Tab 10 MG PO QAM Escitalopram Oxalate (Lexapro) 20 Mg Tab 20 MG PO QAM, 0 Refills Glatiramer Acetate (Copaxone) 20 Mg/1 Ml Inj 20 MG SQ MWF Multivitamins/Minerals (Centrum *) 1 Tab Tab 1 TAB PO QAM Oxybutynin Chloride Er (Ditropan Xl) 10 Mg Tab 15 MG PO QAM, TAB Prednisone (Prednisone) 10 Mg Tab 10 MG PO QAM, TAB Risedronate Sodium (Risedronate Sodium) 150 Mg Tab 150 MG PO MONTHLY, #1 Tizanidine (Zanaflex ) 4 Mg Tab 4 MG PO QID, 0 Refills [Baclofen Pump] () Discontinued Medications: Amoxicillin (Amoxil) 500 Mg Cap 500 MG PO TID, #21 CAP Aspirin (Aspirin Ec) 325 Mg Tab 650 MG PO QAM Admission Information HPI (per Admitting provider): Patient seen and examined with Dr. Vicky Guaman 66 year old female who presents to the ER with chest pain. Patient reports her chest "felt funny" a few weeks ago. She also notes palpitations. She had an echo done as an outpatient that showed LV enlargement, EF > 70%, and grade II diastolic dysfunction. She is scheduled to see cardiology. This morning she noted left sided chest pain. She describes the pain as constant without any specific causative or alleviating factors. She denies shortness of breath. She reports she otherwise has been feeling well recently. She follows at the wound center for a left lateral ankle wound. She was recently prescribed amoxicillin however has not started taking it yet. She denies fever and chills. No abdominal pain, nausea, vomiting, or diarrhea. She denies any urinary symptoms. In the ER, patient had a CT chest that is showing BL PEs. Vitals are stable, no hypoxia or tachycardia. Physical Exam (per Admitting): please refer to Dr. Vicky Guaman's documentation for physical exam Hospital Course ASSESSMENT AND PLAN : PULMONARY EMBOLI BILATERALLY: Patient came in with c/o chest pain which started in AM with associated mild SOB. Not hypoxic, hemodynamically stable CT scan chest - Several second order PE Bilaterally, D dimer 4k -Risk factors: Prior hx of DVT in 2011, when she had the IVC filter placed as US showed peroneal vein thrombosis - which on repeat US showed progression to popliteal vein. As she was at higher risk of fall, IVC filter was placed and was not started on anticoagulant.. Hx of breast carcinoma. -Anticoagulation: Had a detailed discussion with patient about her functional status. At baseline, she is able to do ADLs, walks with walker. Has not had any falls recently and in fact doesnt recall her last fall. Is at high risk of recurrent DVTs/PEs due to prior hx and h/o breast carcinoma. Weighing the risks vs benefits, benefits outweighs the risk. Patient, daughter, sister in law by bedside- understands the complications of anticoagulation - bleeding which is a bit higher in her case, but agreeable to anticoagulation. Would prefer coumadin vs newer anticoagulants because of reversibility. -Started on lovenox SQ BID/Coumadin on 04/14/17; Coumadin 5 mg started on . INR still 1.0 --> Increase coumadin to 7.5 mg daily today. Follow up with coumadin clinic -US duplex- negative, Cardiac monitoring- No arrhythmias, Echo done on 03/29/17 and small PE. so will not repeat it PALPITATIONS ? Had some palpitations associated with chest pain on admission, none since than. Was at Dr Schmid's office for routine visit---> Found to have a murmur per medical student--> Ordered Echo showed diastolic dysfunction, Mild MR. Results were conveyed to patient by nurse at office " Swollen heart" ---> Patient got confused and set up cardiology office visit. Echo was done on 03/29/17- Grade II diastolic dysfunction, EF > 70%, No LVH. -EKG- NSR, Trop x 2- negative, Tele monitoring- No arrhythmias. -No indication for cardiology evaluation PULMONARY NODULE Coincidently noted on CT scan 1 cm right medial lung base -Per criteria needs follow up CT scan in 3 months -Monitor outpatient- enrolled in lung nodule program MULTIPLE SCLEROSIS: -Baseline: she is able to do ADLs, walks with walker -Continue with Copaxone SQ MWF, Ampyra, Tazinidine QID PRN for MS -PT/OT recommends skilled rehab, but patient prefers to go home and continue to work with her personal security specialist. She feels she is at her baseline level of functioning. HX OF BREAST CARCINOMA DVT PROPHYLAXIS Lovenox SQ Therapeutic FULL CODE per patient DISPOSITION Ok to discharge home today. PT/OT - recommends skilled rehab, but patient prefers to go home and continue to work with her personal security specialist. She feels she is at her baseline level of functioning. Prefers her personal security specialist over home PT/OT which was offered to her Lovenox covered per SS Follow up with PCP in 1 week Follow up with coumadin clinic on tuesday Total time spent on discharge = 35 minutes This includes examination of the patient, discharge planning, medication reconciliation, and communication with other providers. Discharge Instructions Discharge Goals Goal(s): Therapeutic intervention Activity Recommendations Activity Limitations: per Instructions/Follow-up section (as tolerated prior to admission. Continue with PT exercises with your personal security specialist) . Instructions / Follow-Up Instructions / Follow-Up MEDICATION CHANGES: 1. Lovenox 70 mg q 12 hours along with coumadin till INR > 2 (INR today 1). You will stop Lovenox after INR is > 2 and continue with coumadin only 2. Coumadin - 7.5 mg daily in evening at 4 PM. Avoid Aspirin high dose while being on coumadin due to higher risk of bleeding. FOLLOW UP 1. Follow up with your PCP in 1 week. Office will call you for appt date/time 2. Follow up with coumadin clinic on Tuesday MONITOR INR monitoring outpatient per coumadin clinic Continue with exercise routine per your personal security specialist. Current Hospital Diet Patient's current hospital diet: Low Sodium Diet (2gm Na), AHA Diet (Heart Healthy) Discharge Diet Recommended Diet: AHA Diet (Heart Healthy), Low Sodium Diet (2gm Na) Pending Studies Studies pending at discharge: no Medical Emergencies . Who to Call and When: Medical Emergencies: If at any time you feel your situation is an emergency, please call 911 immediately. . Non-Emergent Contact Non-Emergency issues call your: Primary Care Provider . . "Provider Documentation" section prepared by Vicky Guaman. . VTE Core Measure Inpt VTE Proph given/why not?: Enoxaparin (Lovenox)SQ, Warfarin (Coumadin)
[2017-04-19] MEDS ORDERED: AMX500 PO (13:00)
[2017-05-09] MEDS ORDERED: CIPR1TAB11 PO (08:46)
[2017-05-10] MEDS ORDERED: SULF800T23 PO (14:21)
[2017-06-20] MEDS ORDERED: OXYB10TA13 PO (12:34)
[2017-06-20] MEDS ORDERED: PRED10TA PO (12:34)
[2017-06-20] MEDS ORDERED: FRS/40 PO (14:20)
[2017-06-20] MEDS ORDERED: BACLOFEN PUMP (14:43)
[2017-06-28] MEDS ORDERED: AMOX500C3 PO (14:49)
[2017-07-07] MEDS ORDERED: CEFD300C2 PO (14:18)
[2017-07-21] MEDS ORDERED: SULF800T23 PO (15:19)
[2017-10-12] MEDS ORDERED: OXYB15TA12 PO (09:05)
[2017-10-12] MEDS ORDERED: CEFD1CAP14 PO (09:05)
[2017-10-12] MEDS ORDERED: FSMD/70 PO (09:05)
[2017-10-12] MEDS ORDERED: SULF800T23 PO (09:05)
[2017-11-03] MEDS ORDERED: CIPR-255 PO (14:38)
== END 2017-04-17 12:43 | disposition home or self-care (01) | DRG 176 ==
LOC: ENRESERV → CANRESERV → ENRESERVTM → ENRESERVDT → C.EDB 14:57 → C.2T 19:02 → EDBEDREQ 19:21 → C.MS2W 04-15 18:39
PROVIDERS: ADMIT Internal Medicine; ATTEND Internal Medicine
DX: I26.99 Other pulmonary embolism without acute cor pulmonale (principal); L97.329 Non-pressure chronic ulcer of left ankle with unspecified severity; G35 Multiple sclerosis; I87.8 Other specified disorders of veins; R00.2 Palpitations; R91.1 Solitary pulmonary nodule; Z79.52 Long term (current) use of systemic steroids; Z79.82 Long term (current) use of aspirin; Z79.899 Other long term (current) drug therapy; Z85.3 Personal history of malignant neoplasm of breast; Z86.718 Personal history of other venous thrombosis and embolism

== ENCOUNTER 2017-06-20 16:41 | Emergency (ER) | payer OTHER, BC ==
[~2017-06-20] VITALS: Ht 168.9 cm; Wt 68.0 kg
[~2017-06-20 16:41] MED LIST changes: -AMOX500C3 PO; -CEFD300C2 PO; -CHOL100027 PO; -CPXI SQ; -DALF10TA PO; -ESCI1TAB10 PO; -MULT-513 PO; -SULF800T23 PO; -WARF-246 PO; -ZNF4 PO
[2017-06-20 16:47] VITALS: TEMP 36.8; Ht 168.9 cm; Wt 68.0 kg
[2017-06-20] MEDS ORDERED: SODIUM CHLORIDE 0.9% 1000ML 1,000 ML IV STA ×2 (17:04→17:58)
[2017-06-20] MEDS ORDERED: MULT-513 PO (17:26)
[2017-06-20] MEDS ORDERED: WARF-246 PO (17:26)
[2017-06-20 17:44] LABS: INR 1.7 (0.9-1.1)
[2017-06-20] MEDS ORDERED: ESCI1TAB10 PO (17:46)
[2017-06-20] MEDS ORDERED: ZNF4 PO (17:46)
[2017-06-20 17:52] LABS: ALT/SGPT 29 U/L (12-78); BLOOD UREA NITROGEN 33 mg/dl (7-18); BUN/CREATININE RATIO 32.6 (10-20); CALCIUM 9.1 mg/dl (8.5-10.1); CARBON DIOXIDE 31 mmol/L (21-32); CHLORIDE 99 mmol/L (98-107); GLUCOSE 106 mg/dl (70-99); MAGNESIUM 2.5 mg/dl (1.8-2.4); POTASSIUM 3.9 mmol/L (3.5-5.1); SODIUM 137 mmol/L (136-145)
--- NOTE | 2017-06-20 17:54 | DIAGNOSTIC IMAGING REPORT ---
CHEST ONE VIEW PORTABLE CLINICAL HISTORY: Chest pain and shortness of breath. COMPARISON STUDY: Chest radiograph and chest CT April 14, 2017. FINDINGS: Lung volumes are diminished. Mild left basilar opacity suggests atelectasis. Cardiomediastinal silhouette is stable. There is no evidence of pulmonary edema. The right costophrenic angle was not included. No pneumothorax or pleural effusion is identified. There is S-shaped scoliosis of the thoracolumbar spine. IVC filter is incidentally noted. IMPRESSION: Diminished lung volumes with left basilar opacity suggestive of atelectasis. Electronically signed by: Scar Holden M.D. 06/20/2017 5:53 PM Dictated Date/Time: 06/20/2017 5:37 PM
[2017-06-20 17:57] LABS: ALKALINE PHOSPHATASE 57 U/L (45-117); AST/SGOT 21 U/L (15-37)
[2017-06-20 18:16] LABS: URINE APPEARANCE CLEAR (CLEAR); URINE BILIRUBIN NEG (NEG); URINE COLOR YELLOW; URINE NITRITE NEG (NEG); URINE PH 6.5 (4.5-7.5); URINE SPECIFIC GRAVITY 1.013 (1.000-1.030); UROBILINOGEN NEG (NEG); ZZUR CULT IF INDIC CLEAN CATCH NO
[2017-06-20 18:18] LABS: MANUAL MICROSCOPIC REQUIRED? NO; REVIEW REQ? NO
[2017-06-20 18:31] LABS: BASO % 0.3 %; BASO ABS # 0.02 K/uL (0-0.2); COMPLETE YES; EOS % 0.1 %; HEMATOCRIT 38.2 % (37-47); IG% 0.1 %; LYMPH % 19.4 %; LYMPH ABS # 1.38 K/uL (1.2-3.4); MEAN CELL VOLUME 96.7 fL (80-100); MEAN CORPUSCULAR HEMOGLOBIN 29.6 pg (25-34); MEAN CORPUSCULAR HGB CONC 30.6 g/dl (32-36); MONO % 6.9 %; NEUT % 73.2 %; PLATELET COUNT 357 K/uL (130-400); RED BLOOD COUNT 3.95 M/uL (4.2-5.4); WHITE BLOOD COUNT 7.11 K/uL (4.8-10.8)
[2017-06-20] MEDS ORDERED: DALF10TA PO (18:34)
[2017-06-20] MEDS ORDERED: CHOL100027 PO (18:34)
[2017-06-20] MEDS ORDERED: CPXI SQ (18:34)
[2017-06-20] MEDS ORDERED: OPTIRAY 320 IV PRN (19:00)
--- NOTE | 2017-06-20 19:00 | DIAGNOSTIC IMAGING REPORT ---
CT ANGIOGRAM OF THE CHEST CLINICAL HISTORY: Atypical chest pain. COMPARISON STUDY: Chest x-ray dated 06/20/2017. Chest CT dated 04/14/2017. TECHNIQUE: Following the IV administration of 66 cc of Optiray 320, CT angiogram of the chest was performed from the upper abdomen to the thoracic inlet utilizing the pulmonary embolus protocol. Images are reviewed in the axial, sagittal, and coronal planes. 3-D MIPS images are created and assessed. IV contrast was administered without complication. A dose lowering technique was utilized adhering to the principles of ALARA. CT DOSE: 188.16 mGy.cm FINDINGS: Thyroid: The left lobe of the thyroid gland is diminutive versus surgically absent. The right lobe is grossly unremarkable. Thoracic aorta: The thoracic aorta is normal in caliber and demonstrates standard 3-vessel arch anatomy. No dissection is seen. Pulmonary vasculature: The pulmonary trunk is normal in caliber. There are no filling defects identified in main, lobar, or segmental pulmonary branches to suggest pulmonary embolus. Heart: The heart is mildly enlarged and there is trace pericardial fluid. Lungs and pleural spaces: Evaluation of the lung parenchyma is degraded by respiratory motion artifact. Foci of scarring versus atelectasis are seen in both lungs. No airspace consolidation is identified typical for pneumonia and there is no pleural effusion. The trachea and central airways are clear. A fat-containing Bochdalek hernia is noted at the left lung base. Mediastinum: There is no mediastinal lymphadenopathy. Darline: Clear. Axillae: Surgical clips are seen in the left axilla. There is no axillary lymphadenopathy. Upper abdomen: Cysts are again seen in the upper poles of both kidneys measure up to 3 cm. There is a punctate nonobstructing left renal calculus. A moderate hiatal hernia is identified. Skeletal structures: The skeletal structures are osteopenic. Degenerative change and scoliosis are identified in the thoracic spine. Arthritic change is also seen in the shoulders. No lytic or blastic bony lesions are seen. Chronic posttraumatic deformity is noted in the sternum. Soft tissues: The left breast is surgically absent. IMPRESSION: 1. There is no evidence of pulmonary embolus in the main, lobar, or segmental pulmonary arteries. 2. There is no airspace consolidation typical for pneumonia or pleural effusion. 3. Additional findings as above. Electronically signed by: Germán Villa M.D. 06/20/2017 6:59 PM Dictated Date/Time: 06/20/2017 6:52 PM
[2017-06-20] MEDS ORDERED: ALUMINUM/MAGNESIUM SUSP 30 ML UDC PO STA (20:34)
[2017-06-20] MEDS ORDERED: WARFARIN SOD 5 MG TAB PO ONE (21:15)
[2017-06-20] MEDS ORDERED: ENOXAPARIN 100 MG/1ML SYR SQ SCH (21:30)
--- NOTE | 2017-06-20 21:49 | EMERGENCY ROOM VISIT NOTE ---
History Report prepared by Adiel: Ravi Olea Under the Supervision of: Dr. Eloisa Quintana D.O. First contact with patient: 16:56 Chief Complaint: CARDIAC ASSESSMENT Stated Complaint: CHEST PAIN Nursing Triage Summary: Triage note: Patient states "I just don't feel right in my chest" Patient states she is on blood thinners and has history of PE's in March. Patient also feeling short of breath on exertion. Patient has had symptoms since Tuesday night. History of Present Illness The patient is a 66 year old female who presents to the Emergency Room with complaints of waxing and waning centralized chest "pressure" beginning a few days ago. She has a history of PE a few months ago and is on Coumadin. She states "something just don't feel quite right". The patient notes that she has a history of breast cancer and has been in remission for 16 years. She states that her current pain is not worsened with movement. She also complains of shortness of breath and persistent leg swelling. States she has had intermittent leg swelling for several years, states recently finished a course of antibiotics for a mild left lower extremity cellulitis. States her b/l LE are swollen, not any worse from chronic. Does follow with pain management and has a baclofen pump. States he was pain management visit by also took a swab/ wound culture of an area in her left lower extremity. Patient is not currently taking antibiotics. The patient denies any lightheadedness, fevers, chills, cough, nausea, or vomiting. She states that she has been eating and drinking normally recently. Patient denies any recent trauma, any change in activity, any cough or cold symptoms. Patient is on chronic steroids. States she does have a history of intermittent GERD and reflux symptoms. No recent trauma, no recent illness, denies sick contacts. Source of History: patient Onset: A few days ago Position: chest (centralized) Quality: pressure Timing: waxes/wanes Associated Symptoms: + SOB, No fevers, No chills, No cough, No nausea, No vomiting Note: The patient also complains of increased leg swelling. The patient denies any lightheadedness. Review of Systems See HPI for pertinent positives & negatives. A total of 10 systems reviewed and were otherwise negative. Past Medical & Surgical Medical Problems: (1) Breast cancer (2) DVT (deep venous thrombosis) (3) Multiple sclerosis (4) Neurogenic bladder (5) Osteoporosis (6) Pulmonary embolism (7) Raynaud disease Surgical Problems: (1) H/O left mastectomy (2) History of appendectomy (3) History of open reduction and internal fixation (ORIF) procedure (4) Presence of intrathecal pump (5) S/P IVC filter (6) S/P partial hysterectomy Family History FH: CAD (coronary artery disease) MOTHER FH: thyroid cancer SISTER Social History Smoking Status: Former Smoker Alcohol Use: none Drug Use: none Marital Status: Occupation Status: retired Current/Historical Medications Scheduled Cholecalciferol (Vitamin D 1000 Unit), 1,000 INTER.UNIT PO QAM Dalfampridine (Ampyra), 10 MG PO QAM Escitalopram Oxalate (Lexapro), 20 MG PO QAM Furosemide (Lasix), 40 MG PO DAILY Glatiramer Acetate (Copaxone), 20 MG SQ MWF Multivitamins/Minerals (Mvi With Minerals), 1 TAB PO DAILY Oxybutynin Chloride Er (Ditropan Xl), 15 MG PO QAM Prednisone (Prednisone), 10 MG PO QAM Tizanidine (Zanaflex ), 4 MG PO QID Warfarin Sodium (Warfarin Sodium), 5 MG PO DAILY Miscellaneous Medications [Baclofen Pump] Allergies Coded Allergies: Ciprofloxacin (Unverified Adverse Reaction, Intermediate, SHORTNESS OF BREATH, 05/10/17) pt develops palpitations Physical Exam Vital Signs Date Time Temp Pulse Resp B/P (MAP) Pulse Ox O2 Delivery O2 Flow Rate FiO2 06/20/17 22:15 77 22 163/91 94 06/20/17 21:37 78 06/20/17 19:01 67 16 133/89 99 Room Air 06/20/17 17:54 68 16 97/73 98 Room Air 06/20/17 17:36 67 06/20/17 16:47 36.8 82 20 85/61 95 Room Air Physical Exam GENERAL: alert, well appearing, well nourished, no distress, non-toxic EYE EXAM: normal conjunctiva, PERRL and EOM's grossly intact OROPHARYNX: no exudate, no erythema, lips, buccal mucosa, and tongue normal and mucous membranes are dry NECK: supple, no nuchal rigidity, no adenopathy, non-tender LUNGS: Clear to auscultation. Normal chest wall mechanics, no w/r/r HEART: no murmurs, S1 normal and S2 normal, mild discomfort with palpation of the left chest ABDOMEN: abdomen soft, non-tender, normo-active bowel sounds, no masses, no rebound or guarding. BACK: Back is symmetrical on inspection and there is no deformity, no midline tenderness, no CVA tenderness. SKIN: no rashes and no bruising UPPER EXTREMITIES: upper extremities are grossly normal. LOWER EXTREMITIES: Trace bilateral pedal edema. Dressing over the distal, lateral left lower extremity. Dressing removed and small area of open blister seen with very mild erythema, no warmth, no active drainage/bleeding, no ascending erythema. NEURO EXAM: Normal sensorium, cranial nerves II-XII grossly intact, normal speech, no gross weakness of arms, no gross weakness of legs. Medical Decision & Procedures ER Provider Diagnostic Interpretation: Radiology results have been interpreted by the radiologist and reviewed by me. CT ANGIOGRAM OF THE CHEST FINDINGS: Thyroid: The left lobe of the thyroid gland is diminutive versus surgically absent. The right lobe is grossly unremarkable. Thoracic aorta: The thoracic aorta is normal in caliber and demonstrates standard 3-vessel arch anatomy. No dissection is seen. Pulmonary vasculature: The pulmonary trunk is normal in caliber. There are no filling defects identified in main, lobar, or segmental pulmonary branches to suggest pulmonary embolus. Heart: The heart is mildly enlarged and there is trace pericardial fluid. Lungs and pleural spaces: Evaluation of the lung parenchyma is degraded by respiratory motion artifact. Foci of scarring versus atelectasis are seen in both lungs. No airspace consolidation is identified typical for pneumonia and there is no pleural effusion. The trachea and central airways are clear. A fat-containing Bochdalek hernia is noted at the left lung base. Mediastinum: There is no mediastinal lymphadenopathy. Darline: Clear. Axillae: Surgical clips are seen in the left axilla. There is no axillary lymphadenopathy. Upper abdomen: Cysts are again seen in the upper poles of both kidneys measure up to 3 cm. There is a punctate nonobstructing left renal calculus. A moderate hiatal hernia is identified. Skeletal structures: The skeletal structures are osteopenic. Degenerative change and scoliosis are identified in the thoracic spine. Arthritic change is also seen in the shoulders. No lytic or blastic bony lesions are seen. Chronic posttraumatic deformity is noted in the sternum. Soft tissues: The left breast is surgically absent. IMPRESSION: 1. There is no evidence of pulmonary embolus in the main, lobar, or segmental pulmonary arteries. 2. There is no airspace consolidation typical for pneumonia or pleural effusion. 3. Additional findings as above. Electronically signed by: Germán Villa M.D. CHEST ONE VIEW PORTABLE FINDINGS: Lung volumes are diminished. Mild left basilar opacity suggests atelectasis. Cardiomediastinal silhouette is stable. There is no evidence of pulmonary edema. The right costophrenic angle was not included. No pneumothorax or pleural effusion is identified. There is S-shaped scoliosis of the thoracolumbar spine. IVC filter is incidentally noted. IMPRESSION: Diminished lung volumes with left basilar opacity suggestive of atelectasis. Electronically signed by: Scar Holden M.D. Laboratory Results 06/20/17 17:23 Red Blood Count 3.95, Mean Corpuscular Volume 96.7, Mean Corpuscular Hemoglobin 29.6, Mean Corpuscular Hemoglobin Concent 30.6, Mean Platelet Volume 10.0, Neutrophils (%) (Auto) 73.2, Lymphocytes (%) (Auto) 19.4, Monocytes (%) (Auto) 6.9, Eosinophils (%) (Auto) 0.1, Basophils (%) (Auto) 0.3, Neutrophils # (Auto) 5.20, Lymphocytes # (Auto) 1.38, Monocytes # (Auto) 0.49, Eosinophils # (Auto) 0.01, Basophils # (Auto) 0.02 06/20/17 17:23 Test 06/20/17 17:23 06/20/17 18:06 06/20/17 20:36 White Blood Count 7.11 K/uL (4.8-10.8) Red Blood Count 3.95 M/uL (4.2-5.4) Hemoglobin 11.7 g/dL (12.0-16.0) Hematocrit 38.2 % (37-47) Mean Corpuscular Volume 96.7 fL (80-100) Mean Corpuscular Hemoglobin 29.6 pg (25-34) Mean Corpuscular Hemoglobin Concent 30.6 g/dl (32-36) Platelet Count 357 K/uL (130-400) Mean Platelet Volume 10.0 fL (7.4-10.4) Neutrophils (%) (Auto) 73.2 % Lymphocytes (%) (Auto) 19.4 % Monocytes (%) (Auto) 6.9 % Eosinophils (%) (Auto) 0.1 % Basophils (%) (Auto) 0.3 % Neutrophils # (Auto) 5.20 K/uL (1.4-6.5) Lymphocytes # (Auto) 1.38 K/uL (1.2-3.4) Monocytes # (Auto) 0.49 K/uL (0.11-0.59) Eosinophils # (Auto) 0.01 K/uL (0-0.5) Basophils # (Auto) 0.02 K/uL (0-0.2) RDW Standard Deviation 49.3 fL (36.4-46.3) RDW Coefficient of Variation 13.8 % (11.5-14.5) Immature Granulocyte % (Auto) 0.1 % Immature Granulocyte # (Auto) 0.01 K/uL (0.00-0.02) Prothrombin Time 19.0 SECONDS (9.0-12.0) Prothromb Time International Ratio 1.7 (0.9-1.1) Anion Gap 7.0 mmol/L (3-11) Est Creatinine Clear Calc Drug Dose 54.2 ml/min Estimated GFR () 69.0 Estimated GFR (Non- 59.5 BUN/Creatinine Ratio 32.6 (10-20) Calcium Level 9.1 mg/dl (8.5-10.1) Magnesium Level 2.5 mg/dl (1.8-2.4) Total Bilirubin 0.3 mg/dl (0.2-1) Aspartate Amino Transf (AST/SGOT) 21 U/L (15-37) Alanine Aminotransferase (ALT/SGPT) 29 U/L (12-78) Alkaline Phosphatase 57 U/L (45-117) Pro-B-Type Natriuretic Peptide 143 pg/ml (0-900) Total Protein 6.6 gm/dl (6.4-8.2) Albumin 3.3 gm/dl (3.4-5.0) Globulin 3.3 gm/dl (2.5-4.0) Albumin/Globulin Ratio 1.0 (0.9-2) Urine Color YELLOW Urine Appearance CLEAR (CLEAR) Urine pH 6.5 (4.5-7.5) Urine Specific [place] 1.013 (1.000-1.030) Urine Protein NEG (NEG) Urine Glucose (UA) NEG (NEG) Urine Ketones NEG (NEG) Urine Occult Blood NEG (NEG) Urine Nitrite NEG (NEG) Urine Bilirubin NEG (NEG) Urine Urobilinogen NEG (NEG) Urine Leukocyte Esterase NEG (NEG) Troponin I < 0.015 ng/ml (0-0.045) Laboratory results per my review. Medications Administered Medications (Trade) Dose Ordered Sig/Fernando Route Start Time Stop Time Status Last Admin Dose Admin Sodium Chloride 1,000 ml @ 999 mls/hr Q1H1M STAT IV 06/20/17 17:04 06/20/17 18:04 DC 06/20/17 17:24 999 MLS/HR Sodium Chloride 1,000 ml @ 250 mls/hr Q4H STAT IV 06/20/17 17:58 06/20/17 21:57 DC 06/20/17 18:26 250 MLS/HR Al Hydroxide/Mg Hydroxide (Maalox Susp) 30 ml NOW STAT PO 06/20/17 20:34 06/20/17 20:35 DC 06/20/17 21:32 30 ML Warfarin Sodium (Coumadin Tab) 5 mg NOW ONCE PO 06/20/17 21:15 06/20/17 21:16 DC 06/20/17 21:34 5 MG Enoxaparin Sodium (Lovenox Inj) 100 mg TODAY@2130 SQ 06/20/17 21:30 06/20/17 23:00 DC 06/20/17 21:35 100 MG ECG Indication: chest pain Rate (beats per minute): 69 Rhythm: normal sinus Findings: T-wave inversion (Lead 3), other (Normal intervals. Normal axis. ) ED Course 1656: The patient was evaluated in room A11A. A complete history and physical exam was performed. 1703: Ordered Sodium Chloride 1000 ml @ 999 mls/hr IV. 1757: Ordered Sodium Chloride 1000 ml @ 250 mls/hr IV. 1953: I updated the patient on her results. She is still having some discomfort , but feels that her pain has improved. 2033: Ordered Maalox Susp 30 mL PO. 2114: Ordered Coumadin Tab 5 mg PO. 2129: Ordered Lovenox Inj 100 mg SQ. 2138: Upon reevaluation, the patient is feeling better. She has had no further discomfort. She has been able to ambulate to the bathroom without chest pain or dizziness. I discussed the findings and the treatment plan with the patient. She verbalizes agreement and understanding. The patient was discharged home. Medical Decision Differential diagnoses includes but is not limited to acute coronary syndrome, myocardial infarction, pericarditis, pulmonary embolus, aortic dissection, pneumonia, pneumothorax, musculoskeletal, shingles, esophageal Pt well appearing, CTA reassuring after pt found with subtherapeutic INR. Some chest pain reproducible. Cath report from August received from [place] and pt with patent stents, only 30-40% noted in RCA. Pt sx all resolved with maalox, suggestive possibly of GI origin and pt at risk for GERD/gastritis given steroid use. Pt improved here, trop negative x 2 and pt with symptoms for >12 hours consistently. Doubt acs, no evidence of pe, infiltrate, dissection, effusion, tamponade. Doubt CHF. Pt with initial hypotension and very clinically dehydrated, responded to IVF and held BP after. Pt admitted to poor po intake today and that she usually doesn't drink enough water. Likely hypotension related to dehydration, no evidence related to blood loss, chf, dissection, aaa, or sepsis. LE with chronic mild edema, small area of blister without appearance of cellulitis. Doubt LE DVT. Pt ambulated here with a steady gait, tolerated po without any recurrent symptoms. Pt monitored for several hours as a precaution. DIscussed with pt close f/u with PCP and with economics department chair as a precaution, discussed sx to watch/return for, she verbalized understanding and was agreeable with plan. Pt no additional c/o other than chest discomfort. No other sx to suggest additional occult pathology. Medication Reconcilliation Current Medication List: was personally reviewed by me Blood Pressure Screening Patient's blood pressure: Elevated blood pressure Blood pressure disposition: Elevated BP felt to be situational Impression Primary Impression: Chest pain Additional Impression: Subtherapeutic international normalized ratio (INR) Scribe Attestation The scribe's documentation has been prepared under my direction and personally reviewed by me in its entirety. I confirm that the note above accurately reflects all work, treatment, procedures, and medical decision making performed by me. Departure Information Dispostion Home / Self-Care Referrals Jil Schmid D.O. (PCP) Patient Instructions My [facility] Additional Instructions Please follow up with your family doctor regarding your recent discomfort. Please follow-up with pain management regarding your baclofen pump as well as the culture of the small wound to your left leg. Please continue regular medications as prescribed. Your Coumadin level tonight was 1.7 which is slightly low. Please note you were given an additional dose of Coumadin as well as a shot of a blood thinner to help get sure number back in normal range. Please have your Coumadin levels rechecked in 2-3 days. If you develop any recurrent episodes of chest discomfort, develop trouble breathing, dizziness, fevers or chills, nausea or vomiting, notice any increased redness to the small wound on your left leg or have increased pain or drainage from the site, please return to the emergency room immediately. Problem Qualifiers Primary Impression: Chest pain Chest pain type: unspecified Qualified Codes: R07.9 - Chest pain, unspecified
[2017-06-20 22:15] VITALS: BP 163/91; PULSE 77; O2SAT 94
[2017-06-21] MEDS ORDERED: ENOXAPARIN 1.5 MG/KG SQ SCH (09:00)
[2017-06-21] MEDS ORDERED: ENOXAPARIN 100 MG/1ML SYR SQ SCH (09:30)
[2017-06-28] MEDS ORDERED: AMOX500C3 PO (14:49)
[2017-07-07] MEDS ORDERED: CEFD300C2 PO (14:18)
[2017-07-21] MEDS ORDERED: SULF800T23 PO (15:19)
== END 2017-06-20 22:21 | disposition home or self-care (01) ==
LOC: C.EDB 16:42 → C.EDA 22:21
DX: R07.9 Chest pain, unspecified (principal); R79.1 Abnormal coagulation profile; R06.02 Shortness of breath; M79.89 Other specified soft tissue disorders; M81.0 Age-related osteoporosis without current pathological fracture; Z79.01 Long term (current) use of anticoagulants; Z79.899 Other long term (current) drug therapy; Z85.3 Personal history of malignant neoplasm of breast; Z86.711 Personal history of pulmonary embolism; Z86.718 Personal history of other venous thrombosis and embolism; Z80.8 Family history of malignant neoplasm of other organs or systems; Z82.49 Family history of ischemic heart disease and other diseases of the circulatory system; G35 Multiple sclerosis; M62.838 Other muscle spasm; L97.919 Non-pressure chronic ulcer of unspecified part of right lower leg with unspecified severity; Z46.2 Encounter for fitting and adjustment of other devices related to nervous system and special senses; Z79.82 Long term (current) use of aspirin; L03.119 Cellulitis of unspecified part of limb

== ENCOUNTER → 2017-06-20 | Outpatient (CLI) | payer OTHER, BC ==
[~2017-06-20] MED LIST changes: -ASPI81TA28 PO; +BACLOFEN PUMP; +CEFD300C2 PO; +CHOL100027 PO; +CMD5 PO; +CPXI SQ; +DALF10TA PO; +ESCI1TAB10 PO; +FRS/40 PO; +LVNIS80 SQ; +MULT-513 PO; +OXYB10TA13 PO; +PRED10TA PO; +RISE1TAB33 PO; -RISETAB3 PO; +SULF800T23 PO; +WARF-246 PO; +ZNF4 PO
--- NOTE | 2017-07-27 07:06 | CODING QUERY NO DIAGNOSIS ---
: 1950 TREATMENT RENDERED WITHOUT A DIAGNOSIS To promote full compliance with coding requirements relating to patient care, physician participation is requested in all cases of emulsification operator uncertainty. Please assist us with providing a diagnosis/symptom for the test(s) below: A diagnosis/symptom was not documented on your Order. A valid diagnosis/symptom is required to bill all insurances. Please remember that we are unable to code a diagnosis of rule out, probable, possible, questionable, or suspected. Tests that require a diagnosis: DOS: 06/20/17 Wound culture DIAGNOSIS: Provider Signature: Date: Thank you Una Doty [facility] Health Information Management Once completed, please kindly fax back to [phone] For questions please call [phone]
== END | disposition home or self-care (01) ==
LOC: C.LABBC 14:23
PROVIDERS: ATTEND Physician Assistant Medical
DX: L03.119 Cellulitis of unspecified part of limb (principal)

== ENCOUNTER 2017-07-26 19:56 | Inpatient (IN) | payer OTHER, BC ==
[~2017-07-26] VITALS: Ht 167.6 cm; Wt 67.3 kg
[~2017-07-26 19:56] MED LIST changes: +CEFD300C2 PO; +CHOL100027 PO; -CMD5 PO; -CNT PO; +CPXI SQ; +DALF10TA PO; +ESCI1TAB10 PO; -LVNIS80 SQ; +MULT-513 PO; -RISE1TAB33 PO; +SULF800T23 PO; +WARF-246 PO; +ZNF4 PO
[2017-07-26 20:19] VITALS: BP 124/77; PULSE 79; TEMP 37; O2SAT 97; Ht 167.6 cm; Wt 67.3 kg
[2017-07-26] MEDS ORDERED: TRAMADOL HCL 50 MG TAB PO PRN (20:45)
[2017-07-26] MEDS ORDERED: ONDANSETRON INJ 2 MG/ML 2 ML VIAL IV PRN (20:45)
--- NOTE | 2017-07-26 21:13 | DIAGNOSTIC IMAGING REPORT ---
LEFT ELBOW MIN 3 VIEWS ROUTINE CLINICAL HISTORY: Right elbow swelling COMPARISON: None. DISCUSSION: There is slight displacement of fat pad suggesting a small joint effusion. No acute fractures or dislocations are visualized. There are no erosive or destructive changes. There is prominent posterior soft tissue swelling. This could indicate an olecranon bursitis. IMPRESSION: 1. No acute fractures 2. Prominent posterior soft tissue swelling. This could indicate an olecranon bursitis 3. Small joint effusion Electronically signed by: Alvaro Chawla M.D. 07/26/2017 9:11 PM Dictated Date/Time: 07/26/2017 9:10 PM
[2017-07-26] MEDS ORDERED: IV FLUIDS COMPLETED PRN (21:15)
[2017-07-26] MEDS ORDERED: NURSING VERBAL MED ORDER ONE (21:15)
[2017-07-26 21:40] LABS: BASO % 0.1 %; BASO ABS # 0.01 K/uL (0-0.2); COMPLETE YES; EOS % 0.3 %; HEMATOCRIT 33.5 % (37-47); IG% 0.3 %; LYMPH % 19.5 %; LYMPH ABS # 1.52 K/uL (1.2-3.4); MEAN CELL VOLUME 92.3 fL (80-100); MEAN CORPUSCULAR HEMOGLOBIN 30.3 pg (25-34); MEAN CORPUSCULAR HGB CONC 32.8 g/dl (32-36); MEAN PLATELET VOLUME 8.7 fL (7.4-10.4); MONO % 9.6 %; NEUT % 70.2 %; PLATELET COUNT 434 K/uL (130-400); RED BLOOD COUNT 3.63 M/uL (4.2-5.4); WHITE BLOOD COUNT 7.81 K/uL (4.8-10.8)
[2017-07-26 21:46] LABS: PROTHROMBIN TIME (PATIENT) 33.9 SECONDS (9.0-12.0)
[2017-07-26 21:57] LABS: BUN/CREATININE RATIO 27.6 (10-20); CALCIUM 9.1 mg/dl (8.5-10.1); MAGNESIUM 2.3 mg/dl (1.8-2.4); POTASSIUM 4.2 mmol/L (3.5-5.1)
[2017-07-26] MEDS ORDERED: NON-FORMULARY MEDICATION (Glatiramer Acetate (Copaxone) 20 MG) SQ SCH (22:15)
[2017-07-26] MEDS ORDERED: BACLOFEN INT SPINAL SCH (22:30)
[2017-07-26 23:07] VITALS: BP 147/93; PULSE 75; TEMP 37; O2SAT 95
[2017-07-27 03:37] VITALS: BP 133/74; PULSE 97
--- NOTE | 2017-07-27 05:43 | HISTORY & PHYSICAL EXAMINATION ---
DATE OF ADMISSION: 07/26/2017 PRIMARY CARE DOCTOR: Dr. Schmid. CHIEF COMPLAINT: Bacteria in elbow fluid. HISTORY OF PRESENT ILLNESS: History obtained from patient and records. Medical history significant for MS on chronic prednisone Rx, pulmonary embolism on anticoagulation sp IVC filter placement, history of neurogenic bladder, Breast cancer left status post surgery, chronic left ankle osteomyelitis (ongoing Cefdinir and Bactrim Rx.), chronic pain on baclofen pump. past tobacco abuse. Recent confinement in March 2017 for pulmonary embolism. Px discharged on Coumadinand Lovenox bridge. Almost 2 weeks ago, patient noted painful swelling on her left elbow, possibly falling, hitting her elbow close to the swimming pool, some chills, no actual fever. Seen at PCP's office a few days ago. Impression was olecranon bursitis. Aspiration done at the office/ Initial results, gram positive bacilli. Patient sent to the hospital by PCP as a direct admission. MED hx as above : Periodic followup at wound care center for chronic left ankle osteomyelitis. Debridement on recent followup last week. [facility]. Bactrim added to regimen to cover possible elbow infection as per note. OPERATIONS: She has had left mastectomy, left hip surgery, IVC filter placement, hysterectomy HOME MEDICATIONS: Include Lexapro, Ditropan, Zanaflex, Copaxone, Ampyra, Coumadin, prednisone, glatiramer, Zanaflex, tizanidine, vitamin D. ALLERGIES: No known drug allergies. FAMILY HISTORY: thyroid cancer. PERSONAL AND SOCIAL HISTORY: Past tobacco abuse. No chronic intake of alcoholic beverages. 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 REVIEW OF SYSTEMS: As per HPI, all other ROS negative. PHYSICAL EXAMINATION: VITAL SIGNS: Blood pressure noted to be 124/70, pulse rate 79, RR 16, temperature 37, sats 98 on room air. GENERAL: Noted to be pleasant, no respiratory distress. SKIN: Pallor. HEENT: Pale palpebral conjunctivae. Dry mucosa. NECK: No JVD. Supple. CHEST: Clear to auscultation. HEART: Regular rate and rhythm. ABDOMEN: Soft. EXTREMITIES: Dressing on the left ankle; tender swelling on the left elbow. Mild limitation in L elbow ROM. NEUROLOGIC: No gross focality. Gait and stance not assessed. LABS: Hemoglobin was noted to be 11, hematocrit 30, white cell count 7.8, platelets 424. Sodium 136, potassium 4.2, chloride 104, CO2 of 26, BUN 19, creatinine 1, glucose was noted to be 92. INR was noted to be 3. Left elbow x-ray showed posterior soft tissue swelling, bursa, small joint effusion. ASSESSMENT: 1. Left elbow swelling 2 to left olecranon bursitis sp aspiration at PCPs office no sepsis gram positive bacilli on initial outpatient cultures, likely contaminant. 2. Chronic wound/osteomyelitis, L ankle, on Bactrim and cefdinir rx slow healing as per patient. 4. Multiple sclerosis, prednisone dependent symptoms at baseline. 5. Pulmonary embolism on anticoagulation. INR was therapeutic. 6. L breast cancer status post surgery. 7. Anemia, may be new baseline, stable at 11 8. Past tobacco abuse PLAN: OBS GMF analgesia, local measures for bursitis follow final outpx bursa fluid CS Orthopedics consult for left elbow swelling. Continue Bactrim and Cefdinir for left ankle ulceration. DVT prophylaxis, Coumadin, INR 2 and 3 if no further orthopedic procedures contemplated. Full code. MTDD
[2017-07-27 07:22] VITALS: BP 129/77; PULSE 92; TEMP 37.4; O2SAT 93
[2017-07-27] MEDS: CEROVITE ADV FORMULA TAB PO SCH (08:41)
[2017-07-27] MEDS: CEFDINIR 300 MG CAP PO SCH ×2 (08:41→21:39)
[2017-07-27] MEDS: SULFAMETHOXAZOLE/TRIMETHOPRIM DS 800/160MG TAB PO SCH ×2 (08:42→21:39)
[2017-07-27] MEDS: OXYBUTYNIN CHLORIDE 5 MG TABCR PO SCH (08:44)
[2017-07-27] MEDS: ESCITALOPRAM OXALATE 20 MG TAB PO SCH (08:46)
[2017-07-27 08:57] LABS: BASO % 0.3 %; BASO ABS # 0.02 K/uL (0-0.2); COMPLETE YES; EOS % 1.3 %; HEMATOCRIT 31.5 % (37-47); IG% 0.2 %; LYMPH % 30.1 %; LYMPH ABS # 1.84 K/uL (1.2-3.4); MEAN CELL VOLUME 91.3 fL (80-100); MEAN CORPUSCULAR HEMOGLOBIN 29.6 pg (25-34); MEAN CORPUSCULAR HGB CONC 32.4 g/dl (32-36); MEAN PLATELET VOLUME 8.8 fL (7.4-10.4); MONO % 13.1 %; PLATELET COUNT 413 K/uL (130-400); RED BLOOD COUNT 3.45 M/uL (4.2-5.4); WHITE BLOOD COUNT 6.11 K/uL (4.8-10.8)
[2017-07-27] MEDS ORDERED: CEROVITE ADV FORMULA TAB PO SCH (09:00)
[2017-07-27] MEDS ORDERED: ESCITALOPRAM OXALATE 20 MG TAB PO SCH (09:00)
[2017-07-27] MEDS ORDERED: DOXYCYCLINE HYCLATE 50 MG CAP PO SCH (09:00)
[2017-07-27] MEDS ORDERED: CHOLECALCIFEROL 1000 INTER.UNIT TAB PO SCH (09:00)
[2017-07-27] MEDS ORDERED: OXYBUTYNIN CHLORIDE 5 MG TABCR PO SCH (09:00)
[2017-07-27 09:05] LABS: PROTHROMBIN TIME (PATIENT) 33.3 SECONDS (9.0-12.0)
--- NOTE | 2017-07-27 12:48 | Progress Note ---
Internal Med Progress Note Date of Service: Jul 27, 2017. Provider Documentation: SUBJECTIVE: Seen and examined at bedside. States having left elbow pain with movement Also had swelling and mild erythema Denies chest pain, SOB, dizziness, abdominal pain Offers no other complaints OBJECTIVE: Vital Signs-as noted below Physical Exam: General Appearance:Moderately built and nourished, no apparent distress Head: normocephalic, Atraumatic Eyes: normal inspection, EOMI, PERRL Neck: supple, Trachea midline Respiratory/Chest: Normal breath sounds, CTA Cardiovascular: S1, S2, No murmur Abdomen/GI:Soft, Non tender, Bowel sounds present Extremities/Musculoskelatal:Multiple wounds on b/l LE in bandage, Left elbow swelling, tender, mild erythema Neurologic/Psych:AAOX3, grossly no focal neurological deficits Skin: normal color, warm Lab data as noted below. ASSESSMENT & PLAN: Left elbow swelling likely secondary to olecranon bursitis S/P aspiration at PCPs office no signs of sepsis X ray:Suggestive of olecranon bursitis Synovial fluid culture: Corynebacterium Striatum: likely contamination Orthopedics consulted. Await for Input Discussed with ID : [email or web address] rosenberg, likely contamination (Corynebacterium Striatum) Chronic wound/osteomyelitis, L ankle: Continue home antibiotics: Bactrim and cefdinir Wound care Follows with ID and wound clinic as outpatient Multiple sclerosis: Stable Continue prednisone H/O Pulmonary embolism on chronic anticoagulation: INR:3.0 Monitor INR Hold coumadin for now for possible procedure H/O Breast cancer S/P surgery Chronic Anemia: Stable H/O neurogenic bladder Monitor DVT Px: On Coumadin held, INR therapeutic Code Status Full code PROCEDURES: Left Elbow X ray: 1. No acute fractures 2. Prominent posterior soft tissue swelling. This could indicate an olecranon bursitis 3. Small joint effusion Vital Signs: Date Time Temp Pulse Resp B/P (MAP) Pulse Ox O2 Delivery O2 Flow Rate FiO2 07/27/17 07:30 Room Air 07/27/17 07:22 37.4 92 18 129/77 (94) 93 Room Air 07/27/17 03:37 97 133/74 (93) 07/26/17 23:52 Room Air 07/26/17 23:07 37.0 75 16 147/93 (111) 95 Room Air 07/26/17 20:19 37.0 79 16 124/77 97 Room Air Lab Results: Results Past 24 Hours Test 07/26/17 21:26 07/27/17 08:25 Range/Units White Blood Count 7.81 6.11 4.8-10.8 K/uL Red Blood Count 3.63 3.45 4.2-5.4 M/uL Hemoglobin 11.0 10.2 12.0-16.0 g/dL Hematocrit 33.5 31.5 37-47 % Mean Corpuscular Volume 92.3 91.3 80-100 fL Mean Corpuscular Hemoglobin 30.3 29.6 25-34 pg Mean Corpuscular Hemoglobin Concent 32.8 32.4 32-36 g/dl Platelet Count 434 413 130-400 K/uL Mean Platelet Volume 8.7 8.8 7.4-10.4 fL Neutrophils (%) (Auto) 70.2 55.0 % Lymphocytes (%) (Auto) 19.5 30.1 % Monocytes (%) (Auto) 9.6 13.1 % Eosinophils (%) (Auto) 0.3 1.3 % Basophils (%) (Auto) 0.1 0.3 % Neutrophils # (Auto) 5.49 3.36 1.4-6.5 K/uL Lymphocytes # (Auto) 1.52 1.84 1.2-3.4 K/uL Monocytes # (Auto) 0.75 0.80 0.11-0.59 K/uL Eosinophils # (Auto) 0.02 0.08 0-0.5 K/uL Basophils # (Auto) 0.01 0.02 0-0.2 K/uL RDW Standard Deviation 47.2 46.0 36.4-46.3 fL RDW Coefficient of Variation 13.9 13.9 11.5-14.5 % Immature Granulocyte % (Auto) 0.3 0.2 % Immature Granulocyte # (Auto) 0.02 0.01 0.00-0.02 K/uL Prothrombin Time 33.9 33.3 9.0-12.0 SECONDS Prothromb Time International Ratio 3.0 3.0 0.9-1.1 Sodium Level 137 136-145 mmol/L Potassium Level 4.2 3.5-5.1 mmol/L Chloride Level 104 98-107 mmol/L Carbon Dioxide Level 26 21-32 mmol/L Anion Gap 7.0 3-11 mmol/L Blood Urea Nitrogen 28 7-18 mg/dl Creatinine 1.00 0.60-1.20 mg/dl Est Creatinine Clear Calc Drug Dose 53.2 ml/min Estimated GFR () 69.0 Estimated GFR (Non- 59.5 BUN/Creatinine Ratio 27.6 10-20 Random Glucose 98 70-99 mg/dl Calcium Level 9.1 8.5-10.1 mg/dl Magnesium Level 2.3 1.8-2.4 mg/dl
[2017-07-27 15:25] VITALS: BP 79/56; PULSE 73; TEMP 36.6
[2017-07-27 15:29] VITALS: BP 86/53
[2017-07-27] MEDS ORDERED: WARFARIN SOD 5 MG TAB PO SCH (16:00)
--- NOTE | 2017-07-27 16:14 | CONSULTATION REPORT ---
DATE OF CONSULTATION: 07/27/2017 HISTORY OF PRESENT ILLNESS: The patient is a very pleasant 66-year-old white female with what appears to be an olecranon bursitis, probable post-traumatic type. She had, what sounds to be blood aspirated about a week prior. I do not see any evidence of drainage or any type of puncture. She is on oral antibiotics currently. I discussed the situation regarding possible repeat aspiration versus I&D versus trying some warm compresses. I think we can try some warm compresses and continue with her antibiotic regime pending her response over the next day or so. If there is no response, she could be a candidate for an I&D, possibly repeat aspiration. We will follow with you as needed. ASSESSMENT AND PLAN: Olecranon bursitis, compressive and conservative management for now, possible I&D pending response over the next 24-36 hours.
[2017-07-27 16:15] VITALS: BP 107/77
[2017-07-27] MEDS ORDERED: FUROSEMIDE 40 MG TAB PO SCH (17:00)
[2017-07-27 23:25] VITALS: BP 142/80; PULSE 79; TEMP 37.1; O2SAT 94
[2017-07-28 06:47] LABS: INR 2.2 (0.9-1.1); PROTHROMBIN TIME (PATIENT) 24.8 SECONDS (9.0-12.0)
[2017-07-28 06:59] VITALS: BP 144/83; PULSE 79; TEMP 37.8; O2SAT 93
[2017-07-28 07:06] LABS: BUN/CREATININE RATIO 18.6 (10-20); CALCIUM 8.9 mg/dl (8.5-10.1); CREATININE 0.91 mg/dl (0.60-1.20); POTASSIUM 3.9 mmol/L (3.5-5.1)
[2017-07-28] MEDS: ACETAMINOPHEN 325 MG TAB PO PRN ×2 (07:13→16:19)
[2017-07-28] MEDS: CEROVITE ADV FORMULA TAB PO SCH (08:53)
[2017-07-28] MEDS: CEFDINIR 300 MG CAP PO SCH ×2 (08:54→21:54)
[2017-07-28] MEDS: OXYBUTYNIN CHLORIDE 5 MG TABCR PO SCH (08:54)
[2017-07-28] MEDS: ESCITALOPRAM OXALATE 20 MG TAB PO SCH (08:54)
[2017-07-28] MEDS: SULFAMETHOXAZOLE/TRIMETHOPRIM DS 800/160MG TAB PO SCH ×2 (08:56→21:53)
[2017-07-28 12:00] VITALS: O2SAT 93
--- NOTE | 2017-07-28 13:15 | Orthopedic Progress Note ---
Orthopedic Progress Note Date of Service Jul 28, 2017. Subjective Reports: feeling well, Denies: complaints Additional Notes: States that she feels the elbow might be a little better but not a great deal more. No new complaints. Objective Left elbow with a little less erythema but still with moderate swelling and fluctuance. ROM within normal limits. No pain on palpation. Date Time Temp Pulse Resp B/P (MAP) Pulse Ox O2 Delivery O2 Flow Rate FiO2 07/28/17 07:15 Room Air 07/28/17 06:59 37.8 79 14 144/83 (103) 93 Room Air 07/28/17 00:45 Room Air 07/27/17 23:25 37.1 79 18 142/80 (100) 94 Room Air 07/27/17 16:15 107/77 (87) 07/27/17 15:40 Room Air 07/27/17 15:29 86/53 (64) 07/27/17 15:25 36.6 73 18 79/56 (64) Laboratory Results 24 Hours: Test 07/28/17 06:12 Prothromb Time International Ratio 2.2 Prothrombin Time 24.8 SECONDS Assessment & Plan Assessment: Olecranon bursitis left elbow Plan: Pt seen with Dr Tee present. He would like to aspirate the bursa again. Pt agreed to aspiration. Left elbow cleansed with 2 alcohol and 3 betadine swabs and left to dry. A 20 gauge needle was inserted into the left olecranon bursa and 13 cc of bloody serous fluid was obtained without difficulty. 4x4's were applied to the site and and a 3" leeann wrap was placed around the dressing. Pt tolerated aspiration well and stated the elbow felt better. Will send for cell count and gram stain/culture.
[2017-07-28 14:02] VITALS: TEMP 36.7
--- NOTE | 2017-07-28 14:09 | Consultant Recommendations ---
Waste Oil Pumper Recommendations Date of Service Jul 28, 2017. Waste Oil Pumper Recommendations Continue using a compressive leeann wrap around the left elbow. Continue to do range of motion exercises with the your elbow. No heavy lifting with the left arm. No more than a normal glass of water for the next 5 days. Then you may increase as tolerated. Please follow up with [facility] (Dr Harden) if you continue to have problems with your elbow. You can call for an appointment as needed. [phone]
--- NOTE | 2017-07-28 14:18 | Progress Note ---
Internal Med Progress Note Date of Service: Jul 28, 2017. Provider Documentation: SUBJECTIVE: Seen and examined at bedside. States having minimal left elbow pain Has aspiration of bursa today Denies chest pain, SOB, dizziness, abdominal pain Offers no other complaints Eager to get discharged Mild fever this morning OBJECTIVE: Vital Signs-as noted below Physical Exam: General Appearance:Moderately built and nourished, no apparent distress Head: normocephalic, Atraumatic Eyes: normal inspection, EOMI, PERRL Neck: supple, Trachea midline Respiratory/Chest: Normal breath sounds, CTA Cardiovascular: S1, S2, No murmur Abdomen/GI:Soft, Non tender, Bowel sounds present Extremities/Musculoskelatal:Multiple wounds on b/l LE in bandage, Left elbow in bandage Neurologic/Psych:AAOX3, grossly no focal neurological deficits Skin: normal color, warm Lab data as noted below. ASSESSMENT & PLAN: Left elbow swelling likely secondary to olecranon bursitis S/P aspiration at PCPs office S/P aspiration POD # 0 no signs of sepsis X ray:Suggestive of olecranon bursitis Out patient Synovial fluid culture: Corynebacterium Striatum: likely contamination Orthopedics consulted. Await for Input Discussed with ID : RAMONE rosenberg, likely contamination (Corynebacterium Striatum) Await for synovial fluid cultures Chronic wound/osteomyelitis, L ankle: Continue home antibiotics: Bactrim and cefdinir Wound care Follows with [facility] and wound clinic as outpatient Multiple sclerosis: Stable Continue prednisone H/O Pulmonary embolism on chronic anticoagulation: INR:3.0>>>>2.2 Monitor INR Restart coumadin today H/O Breast cancer S/P surgery Chronic Anemia: Stable H/O neurogenic bladder Monitor DVT Px: On Coumadin, INR therapeutic Code Status Full code PROCEDURES: Left Elbow X ray: 1. No acute fractures 2. Prominent posterior soft tissue swelling. This could indicate an olecranon bursitis 3. Small joint effusion Vital Signs: Date Time Temp Pulse Resp B/P (MAP) Pulse Ox O2 Delivery O2 Flow Rate FiO2 07/28/17 14:02 36.7 07/28/17 07:15 Room Air 07/28/17 06:59 37.8 79 14 144/83 (103) 93 Room Air 07/28/17 00:45 Room Air 07/27/17 23:25 37.1 79 18 142/80 (100) 94 Room Air 07/27/17 16:15 107/77 (87) 07/27/17 15:40 Room Air 07/27/17 15:29 86/53 (64) 07/27/17 15:25 36.6 73 18 79/56 (64) Lab Results: Results Past 24 Hours Test 07/28/17 06:12 07/28/17 12:58 Range/Units Prothrombin Time 24.8 9.0-12.0 SECONDS Prothromb Time International Ratio 2.2 0.9-1.1 Sodium Level 139 136-145 mmol/L Potassium Level 3.9 3.5-5.1 mmol/L Chloride Level 108 98-107 mmol/L Carbon Dioxide Level 25 21-32 mmol/L Anion Gap 6.0 3-11 mmol/L Blood Urea Nitrogen 17 7-18 mg/dl Creatinine 0.91 0.60-1.20 mg/dl Est Creatinine Clear Calc Drug Dose 58.5 ml/min Estimated GFR () 77.3 Estimated GFR (Non- 66.7 BUN/Creatinine Ratio 18.6 10-20 Random Glucose 84 70-99 mg/dl Calcium Level 8.9 8.5-10.1 mg/dl Microbiology Results 07/28/17 Gram Stain, Received Pending 07/28/17 Bacterial Culture, Received Pending
[2017-07-28 15:05] LABS: SYNOVIAL FLUID APPEARANCE BLOODY; SYNOVIAL FLUID COLOR RED; SYNOVIAL FLUID MONONUC RELAT 2.9 %; SYNOVIAL FLUID POLYNUC RELAT 97.1 %
[2017-07-28 15:29] VITALS: BP 145/88; PULSE 79; TEMP 36.5; O2SAT 93
[2017-07-28] MEDS ORDERED: WARFARIN SOD 3 MG TAB PO SCH (16:00)
[2017-07-28] MEDS ORDERED: WARFARIN SOD 5 MG TAB PO SCH (16:00)
[2017-07-28] MEDS ORDERED: NURSING VERBAL MED ORDER ONE (18:00)
[2017-07-28 22:57] VITALS: BP 139/78; PULSE 74; TEMP 36.8; O2SAT 97
[2017-07-29] MEDS ORDERED: VANCOMYCIN 1GM/270ML NSS IV SCH ×2 (06:00)
--- NOTE | 2017-07-29 06:55 | Clinical Documentation Query ---
JESUS TavarezH : CLINICAL DOCUMENTATION QUERIES QUERY 1 OF 4 Patient is a 66 year old female admitted for olecranon bursitis. She is being treated with antibiotics and has undergone repeat aspiration. As appropriate, consider documentation as suggested below as this assigns to alternative DRG set. Thank you. In your clinical opinion is this patient being managed for: ( ) Septic left elbow olecranon bursitis, due to undetermined bacterium. ( X ) Not Agree ( ) Other explanation of clinical findings (Please Explain) ( ) Unable to determine (Please Define) ( ) Need to Discuss The medical record reflects the following clinical findings, treatment, and risk factors. Clinical Indicators: As above Treatment: Vancomycin, Cefdinir, Septra DS, cultures Risk Factors: Mild traumatic injury to joint QUERY 2 OF 4 Documentation includes: "Chronic wound/osteomyelitis, L ankle: Continue home antibiotics: Bactrim and cefdinir Wound care Follows with ID and wound clinic as outpatient" Wound clinic notes suggest this to be a lateral malleolar area ulceration, implying fibular osteomyelitis. As appropriate, consider explicit clarification of the bone(s) involved. Thank you. In your clinical opinion is this patient being managed for: ( ) Chronic osteomyelitis, lateral malleolus of left fibula ( ) Not Agree ( ) Other explanation of clinical findings (Please Explain) ( ) Unable to determine (Please Define) ( ) Need to Discuss The medical record reflects the following clinical findings, treatment, and risk factors. Clinical Indicators: As above Treatment:Continue home antibiotics: Bactrim and cefdinir,Wound care Follows with ID and wound clinic as outpatient Risk Factors: Age, immobility QUERY 3 OF 4 Documentation includes: "H/O Pulmonary embolism on chronic anticoagulation: (March 2017) INR:3.0>>>>2.2 Monitor INR Restart coumadin today" D/P: Acute or Chronic Pulmonary Embolism Pulmonary embolism can be classified as acute or chronic. Acute PE: Patients with acute PE typically develop signs and symptoms immediately after obstruction of the pulmonary artery(ies) *"Acute" defines the period of time beginning with the initial diagnosis, up to and including the entire period of time where anticoagulation is administered (3-12 months). *Indicators: dyspnea, pleuritic chest pain, tachycardia, anxiety, diaphoresis, cough, rales, rhonchi, hemoptysis, S2, S3 or S4 gallop, cyanosis; CT of chest = concave filling defect ("trailing edge") *Treatment: anticoagulants 3-6 months In your clinical opinion is this patient being managed for: ( ) Acute/Subacute pulmonary embolism undergoing treatment with Coumadin ( ) Not Agree ( ) Other explanation of clinical findings (Please Explain) ( ) Unable to determine (Please Define) ( ) Need to Discuss The medical record reflects the following clinical findings, treatment, and risk factors. Clinical Indicators: As above Treatment: Coumadin, serial coagulation Risk Factors: Prior history of DVT, limited mobility, breast carcinoma QUERY 4 OF 4 Regarding left ankle wound, please explicitly clarify the etiology of the ankle wound as patient and record reviews allow. In your clinical opinion is this patient being managed for: ( ) Pressure ulcer of left ankle, stage ( ) Not Agree ( ) Other explanation of clinical findings (Please Explain) ( ) Unable to determine (Please Define) ( ) Need to Discuss The medical record reflects the following clinical findings, treatment, and risk factors. Clinical Indicators: As above Treatment: WOCN consultation, local wound care Risk Factors: Immobility NPUAP Pressure Injury Stages The National Pressure Ulcer Advisory Panel redefined the definition of a pressure injuries during the NPUAP 2016 Staging Consensus Conference that was held March 05-2015 in [place], [place]. The updated staging definitions were presented at a meeting of over 400 professionals. Using a consensus format, Dr. Stalin Pulido from the [facility] adeptly guided the Staging Task Force and meeting participants to consensus on the updated definitions through an interactive discussion and voting process. During the meeting, the participants also validated the new terminology using photographs. The updated staging system includes the following definitions: Pressure Injury: A pressure injury is localized damage to the skin and underlying soft tissue usually over a bony prominence or related to a medical or other device. The injury can present as intact skin or an open ulcer and may be painful. The injury occurs as a result of intense and/or prolonged pressure or pressure in combination with shear. The tolerance of soft tissue for pressure and shear may also be affected by microclimate, nutrition, perfusion, co-morbidities and condition of the soft tissue. Stage 1 Pressure Injury: Non-blanchable erythema of intact skin Intact skin with a localized area of non-blanchable erythema, which may appear differently in darkly pigmented skin. Presence of blanchable erythema or changes in sensation, temperature, or firmness may precede visual changes. Color changes do not include purple or maroon discoloration; these may indicate deep tissue pressure injury. Stage 2 Pressure Injury: Partial-thickness skin loss with exposed dermis Partial-thickness loss of skin with exposed dermis. The wound bed is viable, pink or red, moist, and may also present as an intact or ruptured serum-filled blister. Adipose (fat) is not visible and deeper tissues are not visible. Granulation tissue, slough and eschar are not present. These injuries commonly result from adverse microclimate and shear in the skin over the pelvis and shear in the heel. This stage should not be used to describe moisture associated skin damage (MASD) including incontinence associated dermatitis (IAD), intertriginous dermatitis (ITD), medical adhesive related skin injury (MARSI), or traumatic wounds (skin tears, myles, abrasions). Stage 3 Pressure Injury: Full-thickness skin loss Full-thickness loss of skin, in which adipose (fat) is visible in the ulcer and granulation tissue and epibole (rolled wound edges) are often present. Slough and/or eschar may be visible. The depth of tissue damage varies by anatomical location; areas of significant adiposity can develop deep wounds. Undermining and tunneling may occur. Fascia, muscle, tendon, ligament, cartilage and/or bone are not exposed. If slough or eschar obscures the extent of tissue loss this is an Unstageable Pressure Injury. Stage 4 Pressure Injury: Full-thickness skin and tissue loss Full-thickness skin and tissue loss with exposed or directly palpable fascia, muscle, tendon, ligament, cartilage or bone in the ulcer. Slough and/or eschar may be visible. Epibole (rolled edges), undermining and/or tunneling often occur. Depth varies by anatomical location. If slough or eschar obscures the extent of tissue loss this is an Unstageable Pressure Injury. Unstageable Pressure Injury: Obscured full-thickness skin and tissue loss Full-thickness skin and tissue loss in which the extent of tissue damage within the ulcer cannot be confirmed because it is obscured by slough or eschar. If slough or eschar is removed, a Stage 3 or Stage 4 pressure injury will be revealed. Stable eschar (i.e. dry, adherent, intact without erythema or fluctuance) on the heel or ischemic limb should not be softened or removed. Deep Tissue Pressure Injury: Persistent non-blanchable deep red, maroon or purple discoloration Intact or non-intact skin with localized area of persistent non-blanchable deep red, maroon, purple discoloration or epidermal separation revealing a dark wound bed or blood filled blister. Pain and temperature change often precede skin color changes. Discoloration may appear differently in darkly pigmented skin. This injury results from intense and/or prolonged pressure and shear forces at the bone-muscle interface. The wound may evolve rapidly to reveal the actual extent of tissue injury, or may resolve without tissue loss. If necrotic tissue, subcutaneous tissue, granulation tissue, fascia, muscle or other underlying structures are visible, this indicates a full thickness pressure injury (Unstageable, Stage 3 or Stage 4). Do not use DTPI to describe vascular, traumatic, neuropathic, or dermatologic conditions. Please clarify and document your clinical opinion in the progress notes and discharge summary. Terms such as "probable", "suspected", "likely", "questionable", "possible", or "still to be ruled out" are acceptable. Please clarify and document your clinical opinion in the progress notes and discharge summary. Terms such as "probable", "suspected", "likely", "questionable", "possible", or "still to be ruled out" are acceptable. IF IN AGREEMENT, YOU MUST DOCUMENT ABOVE DIAGNOSTIC STATEMENT IN DAILY PROGRESS NOTES AND DISCHARGE SUMMARY. This document is not part of the patient's record. Thank You, Lex Forde, CANDIDA [phone]
[2017-07-29 07:13] VITALS: BP 153/80; PULSE 91; TEMP 36.9; O2SAT 95
[2017-07-29 08:10] LABS: BASO % 0.3 %; BASO ABS # 0.02 K/uL (0-0.2); COMPLETE YES; EOS % 4.6 %; HEMATOCRIT 35.5 % (37-47); IG% 0.3 %; LYMPH % 39.7 %; LYMPH ABS # 2.75 K/uL (1.2-3.4); MEAN CELL VOLUME 92.4 fL (80-100); MEAN CORPUSCULAR HEMOGLOBIN 29.7 pg (25-34); MEAN CORPUSCULAR HGB CONC 32.1 g/dl (32-36); MEAN PLATELET VOLUME 8.3 fL (7.4-10.4); MONO % 8.2 %; NEUT % 46.9 %; PLATELET COUNT 483 K/uL (130-400); RED BLOOD COUNT 3.84 M/uL (4.2-5.4); WHITE BLOOD COUNT 6.93 K/uL (4.8-10.8)
[2017-07-29 08:20] LABS: INR 1.9 (0.9-1.1); PROTHROMBIN TIME (PATIENT) 20.5 SECONDS (9.0-12.0)
[2017-07-29 08:41] LABS: CALCIUM 9.2 mg/dl (8.5-10.1)
[2017-07-29] MEDS ORDERED: GLATIRAMER ACETATE 40 MG/ML SYR SQ SCH (09:00)
[2017-07-29] MEDS: OXYBUTYNIN CHLORIDE 5 MG TABCR PO SCH (09:03)
[2017-07-29] MEDS: CEROVITE ADV FORMULA TAB PO SCH (09:04)
[2017-07-29] MEDS: CEFDINIR 300 MG CAP PO SCH (09:04)
[2017-07-29] MEDS: ESCITALOPRAM OXALATE 20 MG TAB PO SCH (09:04)
[2017-07-29] MEDS: SULFAMETHOXAZOLE/TRIMETHOPRIM DS 800/160MG TAB PO SCH (09:05)
--- NOTE | 2017-07-29 09:06 | Orthopedic Progress Note ---
Orthopedic Progress Note Date of Service Jul 29, 2017. Subjective Additional Notes: Pt sitting up eating breakfast. Hoping to go home today. No new complaints. Feels that the elbow is better this AM. Objective CMS intact Elbow with less erythema today. Does not appear that fluid has re accumulated. Still with some bogginess but nontender. Date Time Temp Pulse Resp B/P (MAP) Pulse Ox O2 Delivery O2 Flow Rate FiO2 07/29/17 07:13 36.9 91 16 153/80 (104) 95 Room Air 07/28/17 23:43 Room Air 07/28/17 22:57 36.8 74 18 139/78 (98) 97 Room Air 07/28/17 16:10 Room Air 07/28/17 15:29 36.5 79 18 145/88 (107) 93 Room Air 07/28/17 14:02 36.7 07/28/17 12:00 93 Room Air Laboratory Results 24 Hours: Test 07/29/17 07:56 White Blood Count 6.93 K/uL Red Blood Count 3.84 M/uL Hemoglobin 11.4 g/dL Hematocrit 35.5 % Mean Corpuscular Volume 92.4 fL Mean Corpuscular Hemoglobin 29.7 pg Mean Corpuscular Hemoglobin Concent 32.1 g/dl Platelet Count 483 K/uL Mean Platelet Volume 8.3 fL Neutrophils (%) (Auto) 46.9 % Lymphocytes (%) (Auto) 39.7 % Monocytes (%) (Auto) 8.2 % Eosinophils (%) (Auto) 4.6 % Basophils (%) (Auto) 0.3 % Neutrophils # (Auto) 3.25 K/uL Lymphocytes # (Auto) 2.75 K/uL Monocytes # (Auto) 0.57 K/uL Eosinophils # (Auto) 0.32 K/uL Basophils # (Auto) 0.02 K/uL Prothromb Time International Ratio 1.9 Prothrombin Time 20.5 SECONDS Assessment & Plan Assessment: Olecranon bursitis left elbow Plan: Culture pending Gram stain neg for organisms Continue leeann wrap to left elbow Will see what prelim cx shows but will plan for dc home per Ortho standpoint.
--- NOTE | 2017-07-29 13:34 | Orthopedic Progress Note ---
Orthopedic Progress Note Date of Service Jul 29, 2017. Subjective Reports: feeling well, Denies: chest pain, SOB, nausea / vomiting, light headedness Additional Notes: States pain improved left elbow. No fever or chills. Wants to go home. Objective calves soft nontender, N/V intact, capillary refill less than 2 sec., A&O x3 Left elbow with trace fluid olecranon bursa, Non-tender to palpation left elbow. Full AROM/PROM left elbow. No erythema or proximal streaking left elbow. DNVSI. Cap refill <2 sec. Date Time Temp Pulse Resp B/P (MAP) Pulse Ox O2 Delivery O2 Flow Rate FiO2 07/29/17 07:30 Room Air 07/29/17 07:13 36.9 91 16 153/80 (104) 95 Room Air 07/28/17 23:43 Room Air 07/28/17 22:57 36.8 74 18 139/78 (98) 97 Room Air 07/28/17 16:10 Room Air 07/28/17 15:29 36.5 79 18 145/88 (107) 93 Room Air 07/28/17 14:02 36.7 Laboratory Results 24 Hours: Test 07/29/17 07:56 White Blood Count 6.93 K/uL Red Blood Count 3.84 M/uL Hemoglobin 11.4 g/dL Hematocrit 35.5 % Mean Corpuscular Volume 92.4 fL Mean Corpuscular Hemoglobin 29.7 pg Mean Corpuscular Hemoglobin Concent 32.1 g/dl Platelet Count 483 K/uL Mean Platelet Volume 8.3 fL Neutrophils (%) (Auto) 46.9 % Lymphocytes (%) (Auto) 39.7 % Monocytes (%) (Auto) 8.2 % Eosinophils (%) (Auto) 4.6 % Basophils (%) (Auto) 0.3 % Neutrophils # (Auto) 3.25 K/uL Lymphocytes # (Auto) 2.75 K/uL Monocytes # (Auto) 0.57 K/uL Eosinophils # (Auto) 0.32 K/uL Basophils # (Auto) 0.02 K/uL Prothromb Time International Ratio 1.9 Prothrombin Time 20.5 SECONDS Assessment & Plan Assessment: Improving Olecranon bursitis left elbow Plan: Culture pending Gram stain neg for organisms Continue leeann wrap to left elbow Continue PO antibiotics per Medicine service. May D/C home today per Ortho if approved by primary service. F/U with Dr Ackerman in clinic Tuesday. Call [phone] for appointment.
--- NOTE | 2017-07-29 13:39 | Pain Management Consultation ---
Pain Management Consultation Date of Consultation Jul 29, 2017. Reason for Consultation Refill Baclofen pump History Ms. 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 Patient is currently admitted to the [facility] for left olecranon bursitis which was aspirated and cultured yesterday. Patient is on oral Cefdinir and Bactrim. She does also have a chronic left ankle wound that she does routinely see wound care for. Patient reports a mild increase in leg rigidity as she did receive a 10% dosage increase at the last office visit. Patient denies any constitutional complaints. Case discussed with Dr. Fishman Past Medical/Surgical History (1) Pulmonary embolism (2) Multiple sclerosis (3) Breast cancer (4) Osteoporosis (5) Neurogenic bladder (6) Raynaud disease (7) DVT (deep venous thrombosis) (8) Presence of intrathecal pump (9) S/P IVC filter (10) H/O left mastectomy (11) History of open reduction and internal fixation (ORIF) procedure (12) S/P partial hysterectomy (13) History of appendectomy Family History FH: CAD (coronary artery disease) MOTHER FH: thyroid cancer SISTER Social / Work History Smoking Status: Never smoker Smokeless Tobacco Use: No Drug Use: none Marital Status: Housing Status: lives alone Occupation: retired Allergies Coded Allergies: Ciprofloxacin (Unverified Adverse Reaction, Intermediate, SHORTNESS OF BREATH, 05/10/17) pt develops palpitations Medications Current Inpatient Medications Medications (Trade) Dose Ordered Sig/Fernando Route Start Time Stop Time Status Last Admin Dose Admin Acetaminophen (Tylenol Tab) 650 mg Q4H PRN PO 07/26/17 20:45 08/25/17 20:44 07/28/17 16:19 650 MG Tramadol HCl (Ultram Tab) not relieved by tylenol @ Q6H PRN PO 07/26/17 20:45 08/25/17 20:44 07/28/17 23:50 50 MG Ondansetron HCl (Zofran Inj) 4 mg Q6H PRN IV 07/26/17 20:45 08/25/17 20:44 Miscellaneous (Iv Fluids Completed) 1 ea PRN PRN N/A 07/26/17 21:15 07/26/18 21:14 Oxybutynin Chloride (Ditropan-Xl Tab) 15 mg DAILY PO 07/27/17 09:00 08/26/17 08:59 07/28/17 08:54 15 MG Escitalopram Oxalate (Lexapro Tab) 20 mg DAILY PO 07/27/17 09:00 08/26/17 08:59 07/28/17 08:54 20 MG Prednisone (PredniSONE TAB) 10 mg DAILY PO 07/27/17 09:00 08/26/17 08:59 07/29/17 07:58 10 MG Multivitamins/ Minerals (Multivitamin W/ Minerals Tab) 1 tab QAM PO 07/27/17 09:00 08/26/17 08:59 07/28/17 08:53 1 TAB Miscellaneous Information (Order Awaiting Action) 1 ea QS N/A 07/26/17 21:45 08/25/17 21:44 Baclofen (Baclofen Pain Pump) PER HOME SETTINGS hold for sedation/confusion UD INT SPINAL 07/26/17 22:30 08/25/17 22:29 Cefdinir (Omnicef Cap) 300 mg Q12H PO 07/27/17 09:00 08/06/17 08:59 07/28/17 21:54 300 MG Trimethoprim/ Sulfamethoxazole (Septra Ds 800/ 160MG Tab) 1 tab BID PO 07/27/17 09:00 08/06/17 08:59 07/28/17 21:53 1 TAB Warfarin Sodium (Coumadin Tab) 3 mg DAILY@16 PO 07/28/17 16:00 08/27/17 15:59 07/28/17 16:18 3 MG Glatiramer Acetate (Copaxone) 40 mg Fr@0900 SQ 07/29/17 09:00 07/29/17 12:00 Tizanidine HCl (Zanaflex Tab) 4 mg 0800,1200,1400,1615 PO 07/29/17 08:00 08/28/17 07:59 07/29/17 07:58 4 MG Vancomycin HCl (Vancomycin 1gm/ 270ml Nss) 1 gm PREOP IV 07/29/17 06:00 07/29/17 18:00 07/29/17 08:40 1 GM Review of Systems Denies any constitutional, cardiac, pulmonary, neurological, GI, , extremity, endocrine, neuro, ENT, dermatological, or musculoskeletal complaints other than stated in HPI Physical Exam Height & Weight: Height 5 feet, 6.00 inches. Weight 67.300 (Kilograms) 148 (Pounds) Last Vital Signs Documentation Date Time Temp Pulse Resp B/P (MAP) Pulse Ox O2 Delivery O2 Flow Rate FiO2 07/29/17 07:13 36.9 91 16 153/80 (104) 95 Room Air Exam: GENERAL: Mrs. Shelby is a 66 year old white female that appears her stated age. Speech and cognition is intact. Mood and affect is appropriate. Does not appear to be in any acute distress. HEAD: Normocephalic; atraumatic. EYES: Pupils are round, equal, and reactive to light; EOM intact. ENT: No external ear discharge or lesions. No rhinorrhea or epistaxis. No mucosal lesions. CHEST: Regular chest respiration and excursion. SKIN: There is an leeann wrap on the left elbow. No surrounding erythema noted. Pump is located in the LLQ and without erythema, edema, or drainage. NEURO: Cranial nerves are grossly intact. No focal deficits noted. LOWER EXTREMITIES: There is 4/5 strength of the bilateral lower extremities. + rigidity noted. Laboratory Laboratory Results (Last CBC): 07/29/17 07:56 Red Blood Count 3.84 L, Mean Corpuscular Volume 92.4, Mean Corpuscular Hemoglobin 29.7, Mean Corpuscular Hemoglobin Concent 32.1, Mean Platelet Volume 8.3, Neutrophils (%) (Auto) 46.9, Lymphocytes (%) (Auto) 39.7, Monocytes (%) ( Auto) 8.2, Eosinophils (%) (Auto) 4.6, Basophils (%) (Auto) 0.3, Neutrophils # ( Auto) 3.25, Lymphocytes # (Auto) 2.75, Monocytes # (Auto) 0.57, Eosinophils # ( Auto) 0.32, Basophils # (Auto) 0.02 Assessment 1. Intractable spasticity secondary to multiple sclerosis requiring ongoing utilization of intrathecal baclofen pump and catheter delivery system. 2. Left lower extremity traumatic nonhealing wound 3. Left olecranon bursitis 4. Chronically anticoagulated on Coumadin Recommendations 1. 1 gram of IV Vancomycin was ordered for this morning to further decrease chance of infection from intrathecal pump refill. 2. Intrathecal pump was routinely refilled at today's visit. A 10% dosage increase was made today. Please refer to procedure note and printout in EMR for further details. 3. Continue to follow up with orthopedics, wound care, and infectious disease regarding olecranon bursitis and non healing ankle wound. 4. Patient will return to the Pain Clinic on 10/26/17 for her next pump refill. Procedure Note Date of Service Jul 29, 2017. Procedure Note INTRATHECAL PUMP REFILL AND REPROGRAM PROCEDURE Procedure performed by: Coco Humphries RN. Procedure supervised by: Beatrice Goetz PA-C Pump site: LLQ. 20mL pump Medication: Baclofen 500 mcg/day. Daily dose: Baclofen 64.36 g/day. The patient was brought to the procedure room and placed in supine position. Immediately prior to starting the procedure, a time out was conducted with the staff and the patient where the patient was identified, proposed procedure was verified, proper site for the planned procedure was identified. On examination, no signs of skin breakdown or infection were noted at the injection site. The site was cleansed with DuraPrep followed by Betadine. Sterile drapes were applied. Using the template and 22 gauge, 1.5 inch non-coring Osei needle pump reservoir was accessed uneventfully. 3 mL of the remaining medication for pump was removed and discarded. This volume was compared to the calculated volume of 1.9 mL. Pump was then refilled with medications as documented above. Bacteriostatic filter and constant negative pressure was maintained throughout the refill. Needle was withdrawn. Hemostasis noted. Band-Aid was applied. Pump was reprogrammed as documented above. Patient was given a printout and discharge instructions. Patient voiced understanding.
--- NOTE | 2017-07-29 14:43 | Progress Note ---
Internal Med Progress Note Date of Service: Jul 29, 2017. Provider Documentation: SUBJECTIVE: Seen and examined at bedside. Doing well Denies left elbow pain Has aspiration of bursa yesterday Denies chest pain, SOB, dizziness, abdominal pain Offers no other complaints Eager to get discharged OBJECTIVE: Vital Signs-as noted below Physical Exam: General Appearance:Moderately built and nourished, no apparent distress Head: normocephalic, Atraumatic Eyes: normal inspection, EOMI, PERRL Neck: supple, Trachea midline Respiratory/Chest: Normal breath sounds, CTA Cardiovascular: S1, S2, No murmur Abdomen/GI:Soft, Non tender, Bowel sounds present Extremities/Musculoskelatal:Multiple wounds on b/l LE in bandage, Left elbow in bandage Neurologic/Psych:AAOX3, grossly no focal neurological deficits Skin: normal color, warm Lab data as noted below. ASSESSMENT & PLAN: Left elbow swelling likely secondary to olecranon bursitis S/P aspiration at PCPs office S/P aspiration POD # 1 no signs of sepsis X ray:Suggestive of olecranon bursitis Out patient Synovial fluid culture: Corynebacterium Striatum: likely contamination Orthopedics consulted. Await for Input Discussed with ID : RAMONE rosenberg, likely contamination (Corynebacterium Striatum) synovial fluid cultures: No growth to date Discussed with ID today: No further need of additional antibiotics Needs follow up with as outaptient Chronic wound/osteomyelitis, L ankle: Continue home antibiotics: Bactrim and cefdinir Wound care Follows with ID and wound clinic as outpatient Multiple sclerosis: Stable Continue prednisone H/O Pulmonary embolism on chronic anticoagulation: INR:3.0>>>>2.2>>>1.9 Monitor INR Continue coumadin H/O Breast cancer S/P surgery Chronic Anemia: Stable H/O neurogenic bladder Monitor DVT Px: On Coumadin, INR therapeutic Code Status Full code PROCEDURES: Left Elbow X ray: 1. No acute fractures 2. Prominent posterior soft tissue swelling. This could indicate an olecranon bursitis 3. Small joint effusion Vital Signs: Date Time Temp Pulse Resp B/P (MAP) Pulse Ox O2 Delivery O2 Flow Rate FiO2 07/29/17 07:30 Room Air 07/29/17 07:13 36.9 91 16 153/80 (104) 95 Room Air 07/28/17 23:43 Room Air 07/28/17 22:57 36.8 74 18 139/78 (98) 97 Room Air 07/28/17 16:10 Room Air 07/28/17 15:29 36.5 79 18 145/88 (107) 93 Room Air Lab Results: Results Past 24 Hours Test 07/29/17 07:56 Range/Units White Blood Count 6.93 4.8-10.8 K/uL Red Blood Count 3.84 4.2-5.4 M/uL Hemoglobin 11.4 12.0-16.0 g/dL Hematocrit 35.5 37-47 % Mean Corpuscular Volume 92.4 80-100 fL Mean Corpuscular Hemoglobin 29.7 25-34 pg Mean Corpuscular Hemoglobin Concent 32.1 32-36 g/dl Platelet Count 483 130-400 K/uL Mean Platelet Volume 8.3 7.4-10.4 fL Neutrophils (%) (Auto) 46.9 % Lymphocytes (%) (Auto) 39.7 % Monocytes (%) (Auto) 8.2 % Eosinophils (%) (Auto) 4.6 % Basophils (%) (Auto) 0.3 % Neutrophils # (Auto) 3.25 1.4-6.5 K/uL Lymphocytes # (Auto) 2.75 1.2-3.4 K/uL Monocytes # (Auto) 0.57 0.11-0.59 K/uL Eosinophils # (Auto) 0.32 0-0.5 K/uL Basophils # (Auto) 0.02 0-0.2 K/uL RDW Standard Deviation 46.8 36.4-46.3 fL RDW Coefficient of Variation 13.9 11.5-14.5 % Immature Granulocyte % (Auto) 0.3 % Immature Granulocyte # (Auto) 0.02 0.00-0.02 K/uL Prothrombin Time 20.5 9.0-12.0 SECONDS Prothromb Time International Ratio 1.9 0.9-1.1 Sodium Level 139 136-145 mmol/L Potassium Level 4.0 3.5-5.1 mmol/L Chloride Level 106 98-107 mmol/L Carbon Dioxide Level 25 21-32 mmol/L Anion Gap 8.0 3-11 mmol/L Blood Urea Nitrogen 14 7-18 mg/dl Creatinine 1.00 0.60-1.20 mg/dl Est Creatinine Clear Calc Drug Dose 53.2 ml/min Estimated GFR () 69.0 Estimated GFR (Non- 59.5 BUN/Creatinine Ratio 14.0 10-20 Random Glucose 84 70-99 mg/dl Calcium Level 9.2 8.5-10.1 mg/dl
--- NOTE | 2017-07-29 14:47 | Discharge Summary ---
Discharge Summary Date of Service Jul 29, 2017. Discharge Summary Admission Date: Jul 28, 2017 at 14:06 Discharge Date: Jul 29, 2017 Discharge Disposition: Home Principal Diagnosis: Olecranon Bursitis S/P aspiration Procedures: Elbow X ray: 1. No acute fractures 2. Prominent posterior soft tissue swelling. This could indicate an olecranon bursitis 3. Small joint effusion S/P Elbow aspiration Consultations: Orthopedics Pending Studies/Follow-Up: Follow up with on 08/04/17 at 10:15AM Follow up with Dr Ackerman in clinic on Tuesday (08/02/17) Call [phone] for appointment. Follow up with in 2 weeks as advised Seek immediate medical attention if your symptoms reoccur or worsen Medication Reconciliation Continued Medications: Cefdinir (Omnicef) 300 Mg Cap 300 MG PO Q12H for 30 Days, #60 CAP 2 Refills Cholecalciferol (Vitamin D 1000 Unit) 1,000 Unit Cap 1000 INTER.UNIT PO QAM, CAP Dalfampridine (Ampyra) 10 Mg Tab 10 MG PO QAM Escitalopram Oxalate (Lexapro) 20 Mg Tab 20 MG PO QAM, 0 Refills Furosemide (Lasix) 40 Mg Tab 40 MG PO DAILY, TAB Glatiramer Acetate (Copaxone) 20 Mg/1 Ml Inj 20 MG SQ MWF Multivitamins/Minerals (Mvi With Minerals) Tab 1 TAB PO DAILY, TAB Oxybutynin Chloride Er (Ditropan Xl) 10 Mg Tab 15 MG PO QAM, TAB Prednisone (Prednisone) 10 Mg Tab 10 MG PO QAM, TAB Sulfa/Trimethoprim (Bactrim Ds 800MG/160MG) Tab 1 TAB PO BID for 30 Days, #60 TAB 2 Refills Tizanidine (Zanaflex ) 4 Mg Tab 4 MG PO QID, 0 Refills Warfarin Sodium (Warfarin Sodium) 5 Mg Tab 5 MG PO DAILY, #30 [Baclofen Pump] () Admission Information HPI (per Admitting provider): CHIEF COMPLAINT: Bacteria in elbow fluid. HISTORY OF PRESENT ILLNESS: History obtained from patient and records. Medical history significant for MS on chronic prednisone Rx, pulmonary embolism on anticoagulation sp IVC filter placement, history of neurogenic bladder, Breast cancer left status post surgery, chronic left ankle osteomyelitis (ongoing Cefdinir and Bactrim Rx.), chronic pain on baclofen pump. past tobacco abuse. Recent confinement in March 2017 for pulmonary embolism. Px discharged on Coumadinand Lovenox bridge. Almost 2 weeks ago, patient noted painful swelling on her left elbow, possibly falling, hitting her elbow close to the swimming pool, some chills, no actual fever. Seen at PCP's office a few days ago. Impression was olecranon bursitis. Aspiration done at the office/ Initial results, gram positive bacilli. Patient sent to the hospital by PCP as a direct admission. Physical Exam (per Admitting): PHYSICAL EXAMINATION: VITAL SIGNS: Blood pressure noted to be 124/70, pulse rate 79, RR 16, temperature 37, sats 98 on room air. GENERAL: Noted to be pleasant, no respiratory distress. SKIN: Pallor. HEENT: Pale palpebral conjunctivae. Dry mucosa. NECK: No JVD. Supple. CHEST: Clear to auscultation. HEART: Regular rate and rhythm. ABDOMEN: Soft. EXTREMITIES: Dressing on the left ankle; tender swelling on the left elbow. Mild limitation in L elbow ROM. NEUROLOGIC: No gross focality. Gait and stance not assessed. Hospital Course Left elbow swelling likely secondary to olecranon bursitis S/P aspiration at PCPs office S/P aspiration POD # 1 no signs of sepsis X ray:Suggestive of olecranon bursitis Out patient Synovial fluid culture: Corynebacterium Striatum: likely contamination Orthopedics consulted. Await for Input Discussed with ID : RAMONE rosenberg, likely contamination (Corynebacterium Striatum) synovial fluid cultures: No growth to date Discussed with ID today: No further need of additional antibiotics Needs follow up with as outaptient Chronic wound/osteomyelitis, L ankle: Continue home antibiotics: Bactrim and cefdinir Wound care Follows with ID and wound clinic as outpatient Multiple sclerosis: Stable Continue prednisone H/O Pulmonary embolism on chronic anticoagulation: INR:3.0>>>>2.2>>>1.9 Monitor INR Continue coumadin H/O Breast cancer S/P surgery Chronic Anemia: Stable H/O neurogenic bladder Monitor DVT Px: On Coumadin, INR therapeutic Code Status Full code PROCEDURES: Left Elbow X ray: 1. No acute fractures 2. Prominent posterior soft tissue swelling. This could indicate an olecranon bursitis 3. Small joint effusion Total time spent on discharge =32 minutes This includes examination of the patient, discharge planning, medication reconciliation, and communication with other providers. Discharge Instructions Discharge Instructions Date of Service Jul 29, 2017. Admission Reason for Admission: Septic Olecranon Bursitis Discharge Discharge Diagnosis / Problem: Olecranon Bursitis S/P aspiration Discharge Goals Goal(s): Decrease discomfort, Improve function Activity Recommendations Activity Limitations: resume your previous activity Exercise/Sports Limitations: as tolerated . Instructions / Follow-Up Instructions / Follow-Up Follow up with on 08/04/17 at 10:15AM Follow up with Dr Ackerman in clinic on Tuesday (08/02/17) Call [phone] for appointment. Follow up with in 2 weeks as advised Seek immediate medical attention if your symptoms reoccur or worsen Current Hospital Diet Patient's current hospital diet: AHA Diet (Heart Healthy) Discharge Diet Recommended Diet: AHA Diet (Heart Healthy) Pending Studies Studies pending at discharge: yes List of pending studies: Synovial fluid culture Medical Emergencies . Who to Call and When: Medical Emergencies: If at any time you feel your situation is an emergency, please call 911 immediately. . Non-Emergent Contact Non-Emergency issues call your: Primary Care Provider, Surgeon, Specialist ( Infectious disease) Call Non-Emergent contact if: you have a fever, your pain is not controlled, your pain is worsening, your pain is unusual for you, your pain is concerning you, you have any medication questions Seek immediate medical attention if your symptoms reoccur or worsen . . "Provider Documentation" section prepared by Fernando Armenta. . Project Management Specialist Recommendations Project Management Specialist Recommendations: Continue using a compressive leeann wrap around the left elbow. Continue to do range of motion exercises with the your elbow. No heavy lifting with the left arm. No more than a normal glass of water for the next 5 days. Then you may increase as tolerated. Please follow up with [facility] (Dr Harden) if you continue to have problems with your elbow. You can call for an appointment as needed. [phone] VTE Core Measure Inpt VTE Proph given/why not?: Warfarin (Coumadin), SCD's
[2017-07-29 15:29] VITALS: BP 153/80; PULSE 91; TEMP 36.9; O2SAT 95
== END 2017-07-29 15:45 | disposition home or self-care (01) | DRG 558 ==
LOC: INTOOBSV 19:56 → C.MSN 19:56 → OBSVTOIN 07-28 14:06
PROVIDERS: ADMIT Hospitalist; ATTEND Internal Medicine
PROC: 0M943ZX Drainage of Left Elbow Bursa and Ligament, Percutaneous Approach, Diagnostic (ICD-10-PCS; principal; 2017-07-28)
DX: M70.22 Olecranon bursitis, left elbow (principal); D64.9 Anemia, unspecified; G35 Multiple sclerosis; Z85.3 Personal history of malignant neoplasm of breast; Z86.718 Personal history of other venous thrombosis and embolism; Z87.891 Personal history of nicotine dependence

== ENCOUNTER → 2017-10-27 | Outpatient (CLI) | payer OTHER, BC ==
[~2017-10-27] MED LIST changes: +CEFD1CAP14 PO; -CEFD300C2 PO; -FRS/40 PO; +FSMD/70 PO; -OXYB10TA13 PO; +OXYB15TA12 PO
== END | disposition home or self-care (01) ==
LOC: C.RDSM 11:14
PROVIDERS: ATTEND Physical Medicine & Rehabilitation
DX: M25.561 Pain in right knee (principal); M25.562 Pain in left knee

== ENCOUNTER → 2017-11-08 | Day surgery (SDC) | payer OTHER, BC ==
[2017-10-12 09:07] VITALS: Ht 168.9 cm; Wt 67.3 kg
[~2017-11-08] VITALS: Ht 168.9 cm; Wt 67.3 kg
[~2017-11-08] MED LIST changes: +500ML BSS 0.3ML EPI 1:1000PF IRRIG ONE; +ACETAMINOPHEN 325 MG TAB PO PRN; +AMVISC PLUS 0.8ML SYRINGE INT OCU ONE; +ATROPINE SULFATE 0.1 MG/ML 5ML SYR IV PRN; +BSS FLUSH ONE; -CEFD1CAP14 PO; +CIPR-255 PO; +EpHEDrine SULFATE INJ 50 MG/ML AMP IV PRN; +EpINEphrine INJ 1MG/ML AMP 1 MG/ML AMP ONE; +LIDOCAINE 3.5% OPH GEL PER APPLICATION CHARGE ONE; +LIDOCAINE HCL 1% MPF 2 ML VIAL ONE; +MIDAZOLAM HCL 1 MG/ML 2ML VIAL ONE; +OCUCOAT 1 ML SOLN IO ONE; +PHENYLEPHRINE HCL 10% OP SOLN PER DROP CHARGE OPR SCH; +POVIDONE-IODINE OP SOLN 30 ML BTL ONE; +PROPARACAINE 0.5% OP SOLN PER DROP CHARGE OPR SCH; +RISE150T PO; -SULF800T23 PO; +TOBRAMYCIN/DEXAMETHASONE OPH OINT PER APPLN CHARGE ONE
[2017-11-08] MEDS: PHENYLEPHRINE HCL 2.5% OP SOLN PER DROP CHARGE OPR SCH ×2 (10:50→10:55)
[2017-11-08] MEDS: TROPICAMIDE 1% OP SOLN PER DROP CHARGE OPR SCH ×2 (10:51→10:56)
[2017-11-08] MEDS: CYCLOPENTOLATE HCL 1% OP SOLN PER DROP CHARGE OPR SCH ×2 (10:52→10:57)
[2017-11-08] MEDS: KETOROLAC 0.5% OP SOLN PER DROP CHARGE OPR SCH ×2 (10:53→10:58)
[2017-11-08] MEDS: GATIFLOXACIN OP SOLN PER DROP CHARGE OPR SCH ×2 (10:54→11:04)
[2017-11-08] MEDS: LACTATED RINGER'S 1000ML 500 ML IV SCH ×2 (11:01→11:26)
--- NOTE | 2017-11-08 11:36 | History & Physical Bridge - SC ---
H&P Re-Evaluation Bridge Note: I have examined the patient, reviewed the History & Physical and in the interval since the performance of the History & Physical I have noted the following changes of clinical significance: Diagnosis: Right Cataract Procedure: Right Cataract Removal with Lens Implant No changes noted
--- NOTE | 2017-11-08 12:16 | Discharge Instructions-SurgCtr ---
Discharge Instructions Date of Service Nov 08, 2017. Visit Reason for Visit: Right Cataract Discharge Discharge Diagnosis / Problem: cataract Discharge Goals Goal(s): Improve function Activity Recommendations Activity Limitations: per Instructions/Follow-up section Anesthesia . Post Anesthesia Instructions: If you have had General Anesthesia or IV Sedation: * Do not drive today. * Resume driving when surgeon permits. * Do not make important decisions or sign legal documents today. * Call surgeon for: 1. Temperature elevations greater than 101 degrees F. 2. Uncontrollable pain. 3. Excessive bleeding. 4. Persistent nausea and vomiting. 5. Medication intolerance (nausea, vomiting or rash). * For nausea and vomiting use only clear liquids such as: tea, soda, bouillon until nausea subsides, then gradually increase diet as tolerated. * If you have any concerns or questions, call your surgeon's office. If physician is unavailable and it is an emergency, call 911 or go to the nearest emergency room. . Diet Recommendations Home Diet: resume previous diet Procedures Procedures Performed: Right Cataract Phacoemulsification With Intraocular Lens Implant Pending Studies Studies pending at discharge: no Medical Emergencies . Who to Call and When: Medical Emergencies: If at any time you feel your situation is an emergency, please call 911 immediately. . Non-Emergent Contact Non-Emergency issues call your: Caster Helper . . "Provider Documentation" section prepared by Evans Dawson. .
--- NOTE | 2017-11-08 12:17 | [facility] Operative Report ---
Operative Report Date of Service Nov 08, 2017. Operative Report 1. PREOPERATIVE DIAGNOSIS: Cataract of the right eye. 2. POSTOPERATIVE DIAGNOSIS: Same. 3. PROCEDURE: Phacoemulsification with intraocular lens implantation of the right eye. SURGEON: Dr. Evans Dawson. ANESTHESIA: Topical Lidocaine gel, 1% Non- Preserved intracameral Lidocaine, and monitored intravenous sedation. INDICATIONS FOR THE PROCEDURE: The patient is a 66 - year-old female with a history of cataract of the right eye causing significant visual impairment. The details of the proposed procedure were explained to the patient who asked appropriate questions and following discussion of all risks, benefits and alternatives agreed to have the procedure done. 4. OPERATION AND FINDINGS: DESCRIPTION OF PROCEDURE: After informed consent was obtained, the patient was brought to the Operating Room at the [facility]. The patient was placed in a supine position and then the right eye was prepped and draped in the usual sterile fashion for intraocular surgery. A drop of topical Lidocaine gel was placed in the operative eye. A wire lid speculum was then placed in the fornices. A corneal paracentesis was then created temporally. The Non-Preserved Lidocaine was then instilled into the anterior chamber. The anterior chamber was then pressurized with viscoelastic. A 2.0 mm clear corneal incision was then created temporally. A cystotome was inserted into the anterior chamber and used to create a tear in the anterior lens capsule. This capsular tear was then used to create a small flap and the flap was dragged in a counterclockwise direction in order to create a continuous curvilinear capsulorrhexis. Hydrodissection was accomplished with balanced salt solution. Phacoemulsification of the lens nucleus was then performed in a standard [id number] technique. The phaco time was 40 seconds with an average power of 22 %. The remaining cortical material was removed using irrigation aspiration. The capsular bag was then filled with viscoelastic. A [employer] MX60 +15.5 diopters lens was then loaded into the injector and injected into the capsular bag. The remaining viscoelastic was removed with the irrigation aspiration handpiece. The wound was hydrated and then checked and found to be watertight. The intraocular pressure was checked and found to be adequate. The wire lid speculum was removed and the patient's face was cleaned and dried. TobraDex ointment was placed in the inferior fornix. The patient was discharged to the Recovery Room having tolerated the procedure well. There were no complications. The patient will be seen tomorrow in the office for follow-up. I attest to the content of the Intraoperative Record and any orders documented therein. Any exceptions are noted below.
[2017-11-08 12:48] VITALS: BP 153/91; PULSE 82; O2SAT 97
--- NOTE | 2017-11-08 12:52 | Anesthesia Progress Nt - [facility] ---
Anesthesia Post Op Note Date & Time Nov 08, 2017 at 12:52 Vital Signs Pain Intensity: 0 Vital Signs Past 12 Hours Date Time Temp Pulse Resp B/P (MAP) Pulse Ox O2 Delivery O2 Flow Rate FiO2 11/08/17 12:48 82 16 153/91 (111) 97 Room Air 11/08/17 12:16 36.3 86 16 156/90 (112) 100 Room Air 11/08/17 10:46 36.2 76 18 133/77 (95) Room Air Notes Mental Status: alert / awake / arousable, participated in evaluation Pt Amnestic to Procedure: Yes Nausea / Vomiting: adequately controlled Pain: adequately controlled Airway Patency, RR, SpO2: stable & adequate BP & HR: stable & adequate Hydration State: stable & adequate Anesthetic Complications: no major complications apparent
== END | disposition home or self-care (01) ==
LOC: X.SURG 10:33
PROVIDERS: ATTEND Ophthalmology
DX: H26.9 Unspecified cataract (principal); G35 Multiple sclerosis; I26.99 Other pulmonary embolism without acute cor pulmonale; M81.0 Age-related osteoporosis without current pathological fracture; N13.9 Obstructive and reflux uropathy, unspecified; I73.00 Raynaud's syndrome without gangrene; I87.2 Venous insufficiency (chronic) (peripheral); Z86.718 Personal history of other venous thrombosis and embolism; Z79.01 Long term (current) use of anticoagulants; Z79.82 Long term (current) use of aspirin; Z79.899 Other long term (current) drug therapy

== ENCOUNTER → 2017-12-06 | Day surgery (SDC) | payer OTHER, BC ==
[2017-11-23 07:47] VITALS: Ht 168.9 cm; Wt 67.3 kg
[~2017-12-06] VITALS: Ht 168.9 cm; Wt 67.3 kg
[~2017-12-06] MED LIST changes: -CIPR-255 PO; -FSMD/70 PO; -PHENYLEPHRINE HCL 10% OP SOLN PER DROP CHARGE OPR SCH; +PROPARACAINE 0.5% OP SOLN PER DROP CHARGE OPL SCH; -PROPARACAINE 0.5% OP SOLN PER DROP CHARGE OPR SCH
[2017-12-06 11:31] VITALS: PULSE 76
[2017-12-06] MEDS: PHENYLEPHRINE HCL 2.5% OP SOLN PER DROP CHARGE OPL SCH ×2 (11:45→11:51)
[2017-12-06] MEDS: TROPICAMIDE 1% OP SOLN PER DROP CHARGE OPL SCH ×2 (11:46→11:52)
[2017-12-06] MEDS: CYCLOPENTOLATE HCL 1% OP SOLN PER DROP CHARGE OPL SCH ×2 (11:48→11:53)
[2017-12-06] MEDS: KETOROLAC 0.5% OP SOLN PER DROP CHARGE OPL SCH ×2 (11:49→11:56)
[2017-12-06] MEDS: GATIFLOXACIN OP SOLN PER DROP CHARGE OPL SCH ×2 (11:50→11:57)
--- NOTE | 2017-12-06 12:05 | History & Physical Bridge - SC ---
H&P Re-Evaluation Bridge Note: I have examined the patient, reviewed the History & Physical and in the interval since the performance of the History & Physical I have noted the following changes of clinical significance: Diagnosis: Left Cataract Procedure: Left Cataract Removal with Lens Implant No changes noted
--- NOTE | 2017-12-06 12:40 | [facility] Operative Report ---
Operative Report Date of Service Dec 06, 2017. Operative Report 1. PREOPERATIVE DIAGNOSIS: Cataract of the left eye. 2. POSTOPERATIVE DIAGNOSIS: Same. 3. PROCEDURE: Phacoemulsification with intraocular lens implantation of the left eye. SURGEON: Dr. Evans Dawson. ANESTHESIA: Topical Lidocaine gel, 1% Non- Preserved intracameral Lidocaine, and monitored intravenous sedation. INDICATIONS FOR THE PROCEDURE: The patient is a 67 - year-old female with a history of cataract of the left eye causing significant visual impairment. The details of the proposed procedure were explained to the patient who asked appropriate questions and following discussion of all risks, benefits and alternatives agreed to have the procedure done. 4. OPERATION AND FINDINGS: DESCRIPTION OF PROCEDURE: After informed consent was obtained, the patient was brought to the Operating Room at the [facility]. The patient was placed in a supine position and then the left eye was prepped and draped in the usual sterile fashion for intraocular surgery. A drop of topical Lidocaine gel was placed in the operative eye. A wire lid speculum was then placed in the fornices. A corneal paracentesis was then created temporally. The Non-Preserved Lidocaine was then instilled into the anterior chamber. The anterior chamber was then pressurized with viscoelastic. A 2.0 mm clear corneal incision was then created temporally. A cystotome was inserted into the anterior chamber and used to create a tear in the anterior lens capsule. This capsular tear was then used to create a small flap and the flap was dragged in a counterclockwise direction in order to create a continuous curvilinear capsulorrhexis. Hydrodissection was accomplished with balanced salt solution. Phacoemulsification of the lens nucleus was then performed in a standard [id number] technique. The phaco time was 38 seconds with an average power of 20 %. The remaining cortical material was removed using irrigation aspiration. The capsular bag was then filled with viscoelastic. A [employer] MX60 +16.0 diopters lens was then loaded into the injector and injected into the capsular bag. The remaining viscoelastic was removed with the irrigation aspiration handpiece. The wound was hydrated and then checked and found to be watertight. The intraocular pressure was checked and found to be adequate. The wire lid speculum was removed and the patient's face was cleaned and dried. TobraDex ointment was placed in the inferior fornix. The patient was discharged to the Recovery Room having tolerated the procedure well. There were no complications. The patient will be seen tomorrow in the office for follow-up. I attest to the content of the Intraoperative Record and any orders documented therein. Any exceptions are noted below.
--- NOTE | 2017-12-06 12:41 | Discharge Instructions-SurgCtr ---
Discharge Instructions Date of Service Dec 06, 2017. Visit Reason for Visit: Cataract Left Eye Discharge Discharge Diagnosis / Problem: cataract Discharge Goals Goal(s): Improve function Medications Stopped Medications Name(s): Only took 4 medications this morning. Activity Recommendations Activity Limitations: per Instructions/Follow-up section Anesthesia . Post Anesthesia Instructions: If you have had General Anesthesia or IV Sedation: * Do not drive today. * Resume driving when surgeon permits. * Do not make important decisions or sign legal documents today. * Call surgeon for: 1. Temperature elevations greater than 101 degrees F. 2. Uncontrollable pain. 3. Excessive bleeding. 4. Persistent nausea and vomiting. 5. Medication intolerance (nausea, vomiting or rash). * For nausea and vomiting use only clear liquids such as: tea, soda, bouillon until nausea subsides, then gradually increase diet as tolerated. * If you have any concerns or questions, call your surgeon's office. If physician is unavailable and it is an emergency, call 911 or go to the nearest emergency room. . Diet Recommendations Home Diet: resume previous diet Procedures Procedures Performed: Left Cataract Phacoemulsification With Intraocular Lens Implant Pending Studies Studies pending at discharge: no Medical Emergencies . Who to Call and When: Medical Emergencies: If at any time you feel your situation is an emergency, please call 911 immediately. . Non-Emergent Contact Non-Emergency issues call your: Route Cdl Driver . . "Provider Documentation" section prepared by Evans Dawson. .
--- NOTE | 2017-12-06 13:01 | Anesthesia Progress Nt - [facility] ---
Anesthesia Post Op Note Date & Time Dec 06, 2017 at 13:01 Vital Signs Pain Intensity: 0 Vital Signs Past 12 Hours Date Time Temp Pulse Resp B/P (MAP) Pulse Ox O2 Delivery O2 Flow Rate FiO2 12/06/17 12:46 36.4 16 115/77 (90) 98 Room Air 12/06/17 11:31 36.4 76 18 141/82 (101) 96 Room Air Notes Mental Status: alert / awake / arousable, participated in evaluation Pt Amnestic to Procedure: Yes Nausea / Vomiting: adequately controlled Pain: adequately controlled Airway Patency, RR, SpO2: stable & adequate BP & HR: stable & adequate Hydration State: stable & adequate Anesthetic Complications: no major complications apparent
[2017-12-06 13:16] VITALS: BP 121/82; O2SAT 100
== END | disposition home or self-care (01) ==
LOC: X.SURG 11:13
PROVIDERS: ATTEND Ophthalmology
DX: H26.9 Unspecified cataract (principal); G35 Multiple sclerosis; M81.0 Age-related osteoporosis without current pathological fracture; I73.00 Raynaud's syndrome without gangrene; I87.2 Venous insufficiency (chronic) (peripheral); Z98.41 Cataract extraction status, right eye; Z79.899 Other long term (current) drug therapy; Z79.01 Long term (current) use of anticoagulants; Z79.82 Long term (current) use of aspirin; Z90.12 Acquired absence of left breast and nipple; Z96.642 Presence of left artificial hip joint; Z86.711 Personal history of pulmonary embolism; Z86.718 Personal history of other venous thrombosis and embolism; Z85.3 Personal history of malignant neoplasm of breast

== ENCOUNTER 2018-01-24 13:10 | Inpatient (IN) | payer OTHER, BC ==
[~2018-01-24] VITALS: Ht 167.6 cm; Wt 65.8 kg
[~2018-01-24 13:10] MED LIST changes: -500ML BSS 0.3ML EPI 1:1000PF IRRIG ONE; -ACETAMINOPHEN 325 MG TAB PO PRN; -AMVISC PLUS 0.8ML SYRINGE INT OCU ONE; -ATROPINE SULFATE 0.1 MG/ML 5ML SYR IV PRN; -BSS FLUSH ONE; -EpHEDrine SULFATE INJ 50 MG/ML AMP IV PRN; -EpINEphrine INJ 1MG/ML AMP 1 MG/ML AMP ONE; -LIDOCAINE 3.5% OPH GEL PER APPLICATION CHARGE ONE; -LIDOCAINE HCL 1% MPF 2 ML VIAL ONE; -MIDAZOLAM HCL 1 MG/ML 2ML VIAL ONE; -OCUCOAT 1 ML SOLN IO ONE; -POVIDONE-IODINE OP SOLN 30 ML BTL ONE; -PROPARACAINE 0.5% OP SOLN PER DROP CHARGE OPL SCH; -TOBRAMYCIN/DEXAMETHASONE OPH OINT PER APPLN CHARGE ONE
[2018-01-24 13:20] VITALS: Ht 167.6 cm; Wt 65.8 kg
[2018-01-24] MEDS ORDERED: SODIUM CHLORIDE 0.9% 1000ML 1,000 ML IV STA (13:27)
--- NOTE | 2018-01-24 13:40 | EMERGENCY ROOM VISIT NOTE ---
History First contact with patient: 13:17 Chief Complaint: SYNCOPE (NEAR SYNCOPE) Stated Complaint: HYPOTENSION Nursing Triage Summary: triage note: pt presents to room a02 via als. pt reports while sitting eating lunch at [facility] she had sudden onset of feeligh lightheaded, dizzy and headache. pt denies any loc. pt reports hx of ms and pe last year. pt reports "my head feels foggy." History of Present Illness The patient is a 67 year old female who presents to the Emergency Room via ALS with complaints of feeling lightheaded. The patient states that she was sitting down and eating lunch at [facility] with a friend when she began to suddenly feel lightheaded and dizzy. She developed pain in the front of her head. She states that she sat there for 10-15 minutes but did not feel any better. Her friend noted that she was pale and grayish in color. They then called 911. The patient states that she did not pass out. At this time, she reports a mild pain in the front of her head but states it has improved slightly since it began. She denies any abdominal pain, chest pain, shortness of breath or palpitations. She denies any recent illnesses, fevers, blood in her stools, vomiting or diarrhea. She denies any medication changes. The patient has a history of multiple sclerosis. She has an intrathecal baclofen pump. She has had a previous pulmonary embolism and is on Coumadin. She reports her most recent INR was 2.5. She denies any history of cardiac events. Review of Systems A complete 10 point review of systems was reviewed with the patient with pertinent positives and negatives as per history of present illness. All else were negative. Past Medical/Surgical History Medical Problems: (1) Anemia (2) Breast cancer (3) DVT (deep venous thrombosis) (4) Hypotension (5) Multiple sclerosis (6) Neurogenic bladder (7) Osteoporosis (8) Pulmonary embolism (9) Raynaud disease (10) Swelling of left elbow Surgical Problems: (1) H/O left mastectomy (2) History of appendectomy (3) History of open reduction and internal fixation (ORIF) procedure (4) Presence of intrathecal pump (5) S/P IVC filter (6) S/P partial hysterectomy Family History FH: CAD (coronary artery disease) MOTHER FH: thyroid cancer SISTER Social History Smoking Status: Former Smoker Alcohol Use: none Drug Use: none Marital Status: Occupation Status: retired Current/Historical Medications Scheduled Aspirin (Aspirin), 1 TAB PO DAILY Cholecalciferol (Vitamin D 1000 Unit), 1,000 INTER.UNIT PO QAM Dalfampridine (Ampyra), 1 TAB PO DAILY Doxycycline Hyclate (Doxycycline Hyclate), 1 CAP PO Q2D Escitalopram Oxalate (Lexapro), 20 MG PO QAM Glatiramer Acetate (Copaxone), 1 ML SC UD Multivitamins/Minerals (Mvi With Minerals), 1 TAB PO DAILY Oxybutynin Chloride (Ditropan Xl), 1 TAB PO QAM Prednisone (Prednisone), 10 MG PO QAM Risedronate Sodium (Actonel), 1 TAB PO MONTHLY Tizanidine (Zanaflex ), 4 MG PO QID Warfarin Sodium (Warfarin Sodium), 5 MG PO QPM Physical Exam Vital Signs Date Time Temp Pulse Resp B/P (MAP) Pulse Ox O2 Delivery O2 Flow Rate FiO2 01/24/18 16:00 89 18 146/95 96 Room Air 01/24/18 15:00 83 18 140/84 Room Air 01/24/18 14:22 75 20 110/74 96 Room Air 01/24/18 13:50 75 18 103/69 Room Air 01/24/18 13:20 36.6 76 20 78/52 94 Room Air 01/24/18 13:19 75 Physical Exam VITALS: Vitals are noted on the nurse's note and reviewed by myself. Vital signs stable. GENERAL: This is a 67-year-old female, in no acute distress, pale. SKIN: There is a small ulceration to the lateral left ankle which appears to be well-healing. EARS: External auditory canals clear, tympanic membranes pearly day without erythema or effusion bilaterally. EYES: Pupils equal round and reactive to light and accommodation. Extraocular movements intact. MOUTH: Mucous membranes moist. Tonsils are not enlarged. Pharynx without erythema or exudate. NECK: Supple without nuchal rigidity. No lymphadenopathy. HEART: Regular rate and rhythm without murmurs gallops or rubs. LUNGS: Clear to auscultation bilaterally without wheezes, rales or rhonchi. No retractions or accessory muscle use. ABDOMEN: Soft, nontender to palpation. RECTAL: Light brown stool, Hemoccult positive. NEURO: Patient was alert and oriented to person place and time. No focal neurological deficits. Medical Decision & Procedures ER Provider Diagnostic Interpretation: CHEST ONE VIEW PORTABLE FINDINGS: No focal lung consolidations to suggest pneumonia. No evidence for pulmonary edema. No pleural effusions. No pneumothorax. The heart is stable in size. Retrocardiac density favors a small hiatus hernia. There are low lung volumes. IMPRESSION: No acute process within the chest. No change in the small hiatus hernia. CT HEAD WITHOUT CONTRAST (CT) FINDINGS: No intra or extra-axial mass lesions are visualized. There is no CT evidence of acute cortical infarction. There is no evidence of midline shift. There is no acute hemorrhage. No calvarial fractures are visualized. There are patchy white matter hypodensities likely on a small vessel basis. There is no evidence of pathologic ventricular dilatation. There is no evidence of acute sinusitis IMPRESSION: No acute intracranial findings Laboratory Results 01/24/18 14:00 Red Blood Count 3.40, Mean Corpuscular Volume 74.1, Mean Corpuscular Hemoglobin 21.2, Mean Corpuscular Hemoglobin Concent 28.6, Mean Platelet Volume 8.5, Neutrophils (%) (Auto) 90.1, Lymphocytes (%) (Auto) 4.9, Monocytes (%) (Auto) 3.8, Eosinophils (%) (Auto) 0.5, Basophils (%) (Auto) 0.4, Neutrophils # (Auto) 7.11, Lymphocytes # (Auto) 0.39, Monocytes # (Auto) 0.30, Eosinophils # (Auto) 0.04, Basophils # (Auto) 0.03 01/24/18 14:00 Test 01/24/18 14:00 01/24/18 14:07 White Blood Count 7.89 K/uL (4.8-10.8) Red Blood Count 3.40 M/uL (4.2-5.4) Hemoglobin 7.2 g/dL (12.0-16.0) Hematocrit 25.2 % (37-47) Mean Corpuscular Volume 74.1 fL (80-100) Mean Corpuscular Hemoglobin 21.2 pg (25-34) Mean Corpuscular Hemoglobin Concent 28.6 g/dl (32-36) Platelet Count 457 K/uL (130-400) Mean Platelet Volume 8.5 fL (7.4-10.4) Neutrophils (%) (Auto) 90.1 % Lymphocytes (%) (Auto) 4.9 % Monocytes (%) (Auto) 3.8 % Eosinophils (%) (Auto) 0.5 % Basophils (%) (Auto) 0.4 % Neutrophils # (Auto) 7.11 K/uL (1.4-6.5) Lymphocytes # (Auto) 0.39 K/uL (1.2-3.4) Monocytes # (Auto) 0.30 K/uL (0.11-0.59) Eosinophils # (Auto) 0.04 K/uL (0-0.5) Basophils # (Auto) 0.03 K/uL (0-0.2) RDW Standard Deviation 47.8 fL (36.4-46.3) RDW Coefficient of Variation 17.6 % (11.5-14.5) Immature Granulocyte % (Auto) 0.3 % Immature Granulocyte # (Auto) 0.02 K/uL (0.00-0.02) Hypochromasia PRESENT Anisocytosis PRESENT Microcytosis PRESENT Prothrombin Time 20.9 SECONDS (9.0-12.0) Prothromb Time International Ratio 2.0 (0.9-1.1) Activated Partial Thromboplast Time 32.2 SECONDS (21.0-31.0) Partial Thromboplastin Ratio 1.2 Anion Gap 8.0 mmol/L (3-11) Est Creatinine Clear Calc Drug Dose 50.5 ml/min Estimated GFR () 65.3 Estimated GFR (Non- 56.3 BUN/Creatinine Ratio 19.2 (10-20) Calcium Level 8.3 mg/dl (8.5-10.1) Magnesium Level 2.2 mg/dl (1.8-2.4) Total Bilirubin 0.3 mg/dl (0.2-1) Aspartate Amino Transf (AST/SGOT) 21 U/L (15-37) Alanine Aminotransferase (ALT/SGPT) 23 U/L (12-78) Alkaline Phosphatase 52 U/L (45-117) Total Protein 6.5 gm/dl (6.4-8.2) Albumin 3.2 gm/dl (3.4-5.0) Globulin 3.3 gm/dl (2.5-4.0) Albumin/Globulin Ratio 1.0 (0.9-2) Procalcitonin < 0.05 ng/ml (0-0.5) Bedside Lactic Acid Venous 3.21 mmol/L (0.90-1.70) Bedside Troponin I < 0.030 ng/ml (0-0.045) Medications Administered Medications (Trade) Dose Ordered Sig/Fernando Route Start Time Stop Time Status Last Admin Dose Admin Sodium Chloride 1,000 ml @ 999 mls/hr Q1H1M STAT IV 01/24/18 13:27 01/24/18 14:27 DC 01/24/18 14:07 999 MLS/HR ECG Per My Interpretation Indication: weakness Rate (beats per minute): 75 Rhythm: normal sinus Findings: no acute ischemic change, no ectopy Comparison ECG Date: T wave inversion inferior leads has resolved ED Course The patient was evaluated as above. Labs were drawn and IV access was obtained. Patient was medicated with 1 L normal saline solution. Her blood pressure began to improve and stabilized. Patient was reevaluated and findings were discussed. Rectal exam was performed with a nurse automobiles salesperson. [facility]. They agreed to evaluate the patient for admission. Medical Decision Differential diagnosis includes orthostatic hypotension, anemia, sepsis, electrolyte abnormality, aortic dissection, subarachnoid hemorrhage, dehydration , among others. The patient is a 67-year-old female who presents today complaining of a near syncopal episode. Patient was hypotensive on arrival. Blood pressure was rechecked several times in the room initially and was found to be 70s/50s. Patient was pale but mentating well. Labs revealed anemia with a hemoglobin of 7.2. Labs were otherwise fairly unremarkable. [id number] lactic acid was elevated, however I think this was secondary to volume status rather than infection. CT of the head and chest x-ray were unremarkable. Troponin was not elevated. There were no concerning electrolyte abnormalities. Rectal exam showed heme positive light brown stool. I feel the patient likely has a slow GI bleed which has been present for some time. Type and cross was ordered. The patient was agreeable to admission. [facility] and care. The patient was independently evaluated by Dr. Morris, ED attending physician, who agreed with my assessment and treatment plan. Medication Reconcilliation Current Medication List: was personally reviewed by me Blood Pressure Screening Patient's blood pressure: Low blood pressure (initially hypotensive; improved after receiving fluids, will be followed by hospitalist) Impression Primary Impression: Symptomatic anemia Additional Impression: Hypotension Departure Information Dispostion Admitted as an inpatient Referrals Jil Schmid D.O. (PCP) Patient Instructions My [facility] Problem Qualifiers
--- NOTE | 2018-01-24 14:19 | DIAGNOSTIC IMAGING REPORT ---
CT HEAD WITHOUT CONTRAST (CT) CLINICAL HISTORY: hypotension, headache LIGHTHEADEDNESS COMPARISON STUDY: No previous studies for comparison. TECHNIQUE: Axial CT of the brain is performed from the vertex to the skull base. IV contrast was not administered for this examination. A dose lowering technique was utilized adhering to the principles of ALARA. CT DOSE: 614.27 mGy.cm FINDINGS: No intra or extra-axial mass lesions are visualized. There is no CT evidence of acute cortical infarction. There is no evidence of midline shift. There is no acute hemorrhage. No calvarial fractures are visualized. There are patchy white matter hypodensities likely on a small vessel basis. There is no evidence of pathologic ventricular dilatation. There is no evidence of acute sinusitis IMPRESSION: No acute intracranial findings Electronically signed by: Alvaro Chawla M.D. 01/24/2018 2:18 PM Dictated Date/Time: 01/24/2018 2:17 PM
[2018-01-24 14:36] LABS: HEMATOCRIT 25.2 % (37-47); HEMOGLOBIN 7.2 g/dL (12.0-16.0); MEAN CELL VOLUME 74.1 fL (80-100); MEAN CORPUSCULAR HEMOGLOBIN 21.2 pg (25-34); MEAN CORPUSCULAR HGB CONC 28.6 g/dl (32-36); MEAN PLATELET VOLUME 8.5 fL (7.4-10.4); PLATELET COUNT 457 K/uL (130-400); RED CELL DISTRIBUTION WIDTH CV 17.6 % (11.5-14.5); RED CELL DISTRIBUTION WIDTH SD 47.8 fL (36.4-46.3); WHITE BLOOD COUNT 7.89 K/uL (4.8-10.8)
[2018-01-24 14:37] LABS: PTT PATIENT 32.2 SECONDS (21.0-31.0)
[2018-01-24 14:47] LABS: BASO % 0.4 %; BASO ABS # 0.03 K/uL (0-0.2); EOS % 0.5 %; EOS ABS # 0.04 K/uL (0-0.5); IG# 0.02 K/uL (0.00-0.02); LYMPH % 4.9 %; LYMPH ABS # 0.39 K/uL (1.2-3.4); MONO % 3.8 %; NEUT % 90.1 %; NEUT ABS # 7.11 K/uL (1.4-6.5)
[2018-01-24 14:48] LABS: ALBUMIN 3.2 gm/dl (3.4-5.0); CALCIUM 8.3 mg/dl (8.5-10.1); CREATININE 1.04 mg/dl (0.60-1.20)
[2018-01-24 14:50] LABS: TOTAL PROTEIN 6.5 gm/dl (6.4-8.2)
--- NOTE | 2018-01-24 14:52 | DIAGNOSTIC IMAGING REPORT ---
CHEST ONE VIEW PORTABLE HISTORY: pre-syncope COMPARISON: Chest 06/20/2017. FINDINGS: No focal lung consolidations to suggest pneumonia. No evidence for pulmonary edema. No pleural effusions. No pneumothorax. The heart is stable in size. Retrocardiac density favors a small hiatus hernia. There are low lung volumes. IMPRESSION: No acute process within the chest. No change in the small hiatus hernia. Electronically signed by: Jacky Saldana M.D. 01/24/2018 2:51 PM Dictated Date/Time: 01/24/2018 2:37 PM
[2018-01-24 16:00] VITALS: O2SAT 96
[2018-01-24] MEDS ORDERED: ACETAMINOPHEN 325 MG TAB PO PRN (16:15)
[2018-01-24] MEDS ORDERED: NITROGLYCERIN 0.4 MG SL PER TAB CHARGE SL PRN (16:15)
[2018-01-24] MEDS ORDERED: ONDANSETRON INJ 2 MG/ML 2 ML VIAL IV PRN (16:15)
[2018-01-24] MEDS ORDERED: MAGNESIUM HYDROXIDE SUSP 30 ML UDC PO PRN (16:15)
[2018-01-24] MEDS ORDERED: SODIUM CHLORIDE 0.9% 1000ML 1,000 ML IV SCH (16:30)
[2018-01-24] MEDS ORDERED: DALF10TA PO (16:35)
[2018-01-24] MEDS ORDERED: DXY50 PO (16:35)
[2018-01-24] MEDS ORDERED: ASPI325T45 PO (16:35)
[2018-01-24] MEDS ORDERED: PANTOprazole INJ 80 MG in DEXTROSE 5% 100ML IV ONE (17:00)
[2018-01-24] MEDS: PANTOprazole INJ 40 MG in DEXTROSE 5% 100ML IV SCH ×2 (17:20→23:16)
[2018-01-24] MEDS ORDERED: GLAT1INJ SC (17:51)
--- NOTE | 2018-01-24 17:54 | History and Physical ---
History & Physical Date & Time of Service: Jan 24, 2018 at 16:52 Chief Complaint: Hypotension Primary Care Physician: Jil Schmid D.O. History of Present Illness Source: patient, clinic records, hospital records Pt is 67 y/o F with PMH MS on chronic prednisone, Hx PE on chronic Coumadin presented to ER with c/o lightheadedness. Pt reports today was at [facility] when she became lightheaded and her friend noticed that she looked pale. Symptoms persisted for approx 15 minutes and EMS was called. Pt states had mild aching frontal head which resolved. Denies any syncope. Pt does report that for approx one month has been having sensation that heart is skipping a beat. This lasts for a couple of seconds and can occur with sitting or standing or with exertion. Denies feeling SOB. Has noticed intermittent lightheadedness past month also, unsure if it occurs with palpitations. Followed with PCP for palpitations and pt reports is to have monitor placed next month to r/o arrhythmia. Of note pt had CBC on 01/20/18 and Hgb: 7.1 then. Denies any head injury. Reports INRs have been in therapeutic range. Denies any epistaxis, melena, hematochezia. Reports some intermittent heartburn over past couple of months, doesn't have to taken anything for it. Reports was using 325mg ASA daily for arthritis pain to knees however reports for greater than a month has been taking three tabs of 325mg ASA in morning and 3 tabs in the evening. Hx chronic osteomyelitis of left ankle and chronic wound lateral ankle. She follows with Dr Liz and is on doxycycline 50mg every other day and was receiving dalbavancin for MSSA and corynebacterium to L ankle wound. Was following with [facility] wound clinic, d/c in 10/2017. pt reports wound appears to be healing and has not re-opened. She does report hit left resendez on walker and has skin tear, thinks this happened 1-2 weeks ago. Denies discharge from area. Has intrathecal baclofen pump or intractable spasticity bilateral LE secondary to MS. Had refilled on 12/28/17 - follows with [facility] pain management. On Prednisone 10mg daily for control of MS. Follows with Dr Walker. Reports chronic extremity edema with prolonged sitting, right leg worse than left, she sometimes uses danny hose to right leg which seems to help. Denies increased edema or increased LE pain/spasms/weakness. Uses walker and sometimes a wheelchair.Denies fever/chills, diaphoresis, N/V/D/C, syncope, vision changes, neck pain, CP, orthopnea, cough, sore throat, choking, otalgia, rhinorrhea, abdominal pain, urinary symptoms. In ER pt arrived hypotensive at 78/52, responded well to 1L NSS and BP up to 140 's/90. Hemoccult positive with brown color stool. Hgb: 7.2. INR: 2.0 Past Medical/Surgical History Medical Problems: (1) Breast cancer Status: Chronic (2) DVT (deep venous thrombosis) Status: Chronic (3) Multiple sclerosis Status: Chronic (4) Neurogenic bladder Status: Chronic (5) Osteoporosis Status: Chronic (6) Pulmonary embolism Status: Resolved (7) Raynaud disease Status: Chronic (8) Swelling of left elbow Status: Resolved Surgical Problems: (1) H/O left mastectomy Status: Chronic (2) History of appendectomy Status: Chronic (3) History of open reduction and internal fixation (ORIF) procedure Permanent Comment: left hip Status: Chronic (4) Presence of intrathecal pump Status: Chronic (5) S/P IVC filter Status: Chronic (6) S/P partial hysterectomy Status: Chronic Family History FH: CAD (coronary artery disease) MOTHER FH: thyroid cancer SISTER Social History Smoking Status: Former Smoker Smokeless Tobacco Use: No Alcohol Use: none Drug Use: none Marital Status: Housing status: lives alone Occupational Status: retired Immunizations History of Influenza Vaccine: Yes Influenza Vaccine Date: Nov 10, 2016 History of Tetanus Vaccine?: Yes Tetanus Immunization Date: Apr 30, 2009 History of Pneumococcal: Yes Pneumococcal Date: Jul 05, 2011 Multi-Drug Resistant Organisms History of MDRO: No Allergies Coded Allergies: No Known Allergies (Unverified , 12/06/17) Home Medications Scheduled Aspirin (Aspirin), 1 TAB PO DAILY Cholecalciferol (Vitamin D 1000 Unit), 1,000 INTER.UNIT PO QAM Dalfampridine (Ampyra), 1 TAB PO DAILY Doxycycline Hyclate (Doxycycline Hyclate), 1 CAP PO Q2D Escitalopram Oxalate (Lexapro), 20 MG PO QAM Glatiramer Acetate (Copaxone), 1 ML SC UD Multivitamins/Minerals (Mvi With Minerals), 1 TAB PO DAILY Oxybutynin Chloride (Ditropan Xl), 1 TAB PO QAM Prednisone (Prednisone), 10 MG PO QAM Risedronate Sodium (Actonel), 1 TAB PO MONTHLY Tizanidine (Zanaflex ), 4 MG PO QID Warfarin Sodium (Warfarin Sodium), 5 MG PO QPM Review of Systems Constitutional: No weight loss Eyes: No eye pain, No redness ENT: No hearing loss, No unusual epistaxis, No nasal symptoms, No sore throat, No trouble swallowing Respiratory: No cough, No sputum, No wheezing, No hemoptysis Cardiovascular: + palpitations (see HPI), No chest pain, No orthopnea, No PND Abdomen: No pain, No nausea, No vomiting, No diarrhea, No constipation, No GI bleeding Genitourinary - Female: No dysuria, No hematuria Endocrine: No excessive thirst, No excessive urination Hematologic / Lymphatic: No abnormal bleeding/bruising, No night sweats Integumentary: + problem reported (see HPI) Physical Exam Vital Signs Date Time Temp Pulse Resp B/P (MAP) Pulse Ox O2 Delivery O2 Flow Rate FiO2 01/24/18 16:00 89 18 146/95 96 Room Air 01/24/18 15:00 83 18 140/84 Room Air 01/24/18 14:22 75 20 110/74 96 Room Air 01/24/18 13:50 75 18 103/69 Room Air 01/24/18 13:20 36.6 76 20 78/52 94 Room Air 01/24/18 13:19 75 General Appearance: WD/WN, no apparent distress Head: normocephalic, atraumatic Eyes: normal inspection, PERRL, EOMI, sclerae normal, + pertinent finding ( pale conjunctiva) ENT: hearing grossly normal, pharynx normal, + pertinent finding (mucous membranes moist) Neck: supple, trachea midline Respiratory/Chest: lungs clear, normal breath sounds, no respiratory distress, no accessory muscle use Cardiovascular: regular rate, rhythm, no murmur, normal peripheral pulses Abdomen/GI: normal bowel sounds, non tender, soft Extremities/Musculoskelatal: no calf tenderness, normal capillary refill, non- tender, + pertinent finding (ROM extremities intact. no significant edema LE noted) Neurologic/Psych: alert, normal mood/affect, oriented x 3 Skin: + pertinent finding (left lateral ankle with closed scab without surrounding erythema or edema, left anterior skin with skin tear with slight erythema around edges, no discharge or bleeding, no other rashes noted) Diagnostics Laboratory Results Results Past 24 Hours Test 01/24/18 14:00 01/24/18 14:07 Range/Units White Blood Count 7.89 4.8-10.8 K/uL Red Blood Count 3.40 4.2-5.4 M/uL Hemoglobin 7.2 12.0-16.0 g/dL Hematocrit 25.2 37-47 % Mean Corpuscular Volume 74.1 80-100 fL Mean Corpuscular Hemoglobin 21.2 25-34 pg Mean Corpuscular Hemoglobin Concent 28.6 32-36 g/dl Platelet Count 457 130-400 K/uL Mean Platelet Volume 8.5 7.4-10.4 fL Neutrophils (%) (Auto) 90.1 % Lymphocytes (%) (Auto) 4.9 % Monocytes (%) (Auto) 3.8 % Eosinophils (%) (Auto) 0.5 % Basophils (%) (Auto) 0.4 % Neutrophils # (Auto) 7.11 1.4-6.5 K/uL Lymphocytes # (Auto) 0.39 1.2-3.4 K/uL Monocytes # (Auto) 0.30 0.11-0.59 K/uL Eosinophils # (Auto) 0.04 0-0.5 K/uL Basophils # (Auto) 0.03 0-0.2 K/uL RDW Standard Deviation 47.8 36.4-46.3 fL RDW Coefficient of Variation 17.6 11.5-14.5 % Immature Granulocyte % (Auto) 0.3 % Immature Granulocyte # (Auto) 0.02 0.00-0.02 K/uL Hypochromasia PRESENT Anisocytosis PRESENT Microcytosis PRESENT Prothrombin Time 20.9 9.0-12.0 SECONDS Prothromb Time International Ratio 2.0 0.9-1.1 Activated Partial Thromboplast Time 32.2 21.0-31.0 SECONDS Partial Thromboplastin Ratio 1.2 Sodium Level 139 136-145 mmol/L Potassium Level 4.0 3.5-5.1 mmol/L Chloride Level 106 98-107 mmol/L Carbon Dioxide Level 25 21-32 mmol/L Anion Gap 8.0 3-11 mmol/L Blood Urea Nitrogen 20 7-18 mg/dl Creatinine 1.04 0.60-1.20 mg/dl Est Creatinine Clear Calc Drug Dose 50.5 ml/min Estimated GFR () 65.3 Estimated GFR (Non- 56.3 BUN/Creatinine Ratio 19.2 10-20 Random Glucose 92 70-99 mg/dl Calcium Level 8.3 8.5-10.1 mg/dl Magnesium Level 2.2 1.8-2.4 mg/dl Total Bilirubin 0.3 0.2-1 mg/dl Aspartate Amino Transf (AST/SGOT) 21 15-37 U/L Alanine Aminotransferase (ALT/SGPT) 23 12-78 U/L Alkaline Phosphatase 52 45-117 U/L Total Protein 6.5 6.4-8.2 gm/dl Albumin 3.2 3.4-5.0 gm/dl Globulin 3.3 2.5-4.0 gm/dl Albumin/Globulin Ratio 1.0 0.9-2 Procalcitonin < 0.05 0-0.5 ng/ml Bedside Lactic Acid Venous 3.21 0.90-1.70 mmol/L Bedside Troponin I < 0.030 0-0.045 ng/ml Microbiology Results 01/24/18 Blood Culture, Received Pending 01/24/18 Blood Culture, Received Pending Diagnostic Radiology CT HEAD: IMPRESSION: No acute intracranial findings CXR: IMPRESSION: No acute process within the chest. No change in the small hiatus hernia. EKG EKG: NSR, rate 75.no significant change noted from 2017 EKG Impression Assessment and Plan SYMPTOMATIC ANEMIA WITH HYPOTENSION SUSPECTED UPPER GI BLEED - Suspect gastric/duodenal ulcer secondary to ASA, prednisone, doxycycline use Pt with intermittent lightheadedness past month. Severe episode today with recorded hypotension, responded well to 1L NSS in ER and BP's 140s/90s. Pt without noted melena, hematochezia, epistaxis, hematuria or other bleeding recently. Pt has been taking 6 tabs of 325mg ASA daily. She is on prednisone 10mg daily, doxycycline 50mg every other day and Coumadin. Today INR: 2.0. Today Hgb: 7.2. Heme positive stool -Protonix drip -hold ASA, Coumadin, prednisone, doxycycline at this time -type and cross, transfuse one unit at this time, repeat H&H -monitor H&H -GI consult - spoke with and want NPO after midnight -clear liquid diet and NPO after midnight PALPITATIONS EKG: NSR today. Suspect pt's palpitations secondary to anemia. Pt reports to have out patient quality assurance monitor placed next month. tele to monitor for any arrhythmias. may need cardiology consult HX PE ON COUMADIN INR: 2.0. No CP -hold Coumadin currently with anemia -repeat INR CHRONIC L ANKLE WOUND AND HX OSTEOMYELITIS -wound appears to healing, no open areas, no surrounding erythema or discharge -pt with skin tear to anterior resendez without discharge -hold doxycycline at this time -ID consult for further antibiotic recommendations as suspect pt has probable gastric/duodenal ulcer ELEVATED LACTIC ACID: Lactic acid: 3.2. Procalcitonin ordered and was WNL. do not suspect sepsis at this time. -repeat lactic acid MS Pt with intrathecal baclofen pump. Symptoms at baseline currently -hold prednisone currently -continue copaxone, zanaflex, ampyra DEPRESSION -continue lexapro HX L BREAST CA S/P SURGERY DVT Prophylaxis -SCDs secondary to probable GI bleed Disposition admit tele Full Code as per discussion with pt Follows with Dr Jil Schmid for routine care Pt was seen with Dr Campa. See addendum Level of Care Telemetry Resuscitation Status FULL RESUSCITATION VTE Prophylaxis VTE Risk Assessment Done? Y/N: Yes Risk Level: Moderate Given or contraindicated: SCD's Note ATTENDING ADDENDUM Record reviewed. Patient interviewed and examined. Care coordinated with Emily Alves PA-C. Please refer to her documentation for patient's history. 67-year-old female. History of pulmonary embolism on chronic warfarin therapy. Developed lightheadedness today while eating lunch. Brought to ED for evaluation. BP upon arrival was 78/52. Hypertension responded to fluid resuscitation. Found to be anemic with heme positive stools. Taking aspirin 3 tablets twice daily for musculoskeletal pain. On chronic prednisone therapy for multiple sclerosis. Taking doxycycline every other day for chronic of ankle. No apparent melena or hematochezia. EXAM: General-no acute distress VS- as noted HEENT-anicteric Neck-supple, no JVD Lungs-clear to auscultation and percussion Heart-regular, 2/6 systolic murmur at base Abdomen-normal bowel sounds, soft, nontender Extremities-no pretibial edema or calf tenderness Neuro-alert, oriented Skin-left pretibial skin tear; healed ulcer left lateral malleolus DATA: Hemoglobin 7.2 with an MCV of 74. INR 2.0. Other lab studies as noted. Chest x-ray demonstrated small hiatal hernia, otherwise unremarkable. CT head negative for hemorrhage or other acute findings. EKG performed at 1328 reviewed and demonstrated normal sinus rhythm at 75/minute , no acute ST or T-wave abnormalities. ASSESSMENT AND PLAN: Severe microcytic anemia associated with lightheadedness. Stools brown and heme positive in ED. No apparent melena or hematochezia. Episode of hypertension may or may not be related to GI bleeding. Hemodynamics improved in the ED after receiving fluid resuscitation. Packed RBCs typed and crossed. 1 unit of packed RBCs were ordered to be transfused. IV pantoprazole bolus/infusion. Stop aspirin. Patient was advised to avoid aspirin and NSAID use in the future while taking warfarin. Hold prednisone. IV hydrocortisone ordered. Resume usual dose of prednisone once evaluation complete. Hold doxycycline. Discuss further management of chronic osteomyelitis with ID. Follow H/H. Consult GI. Please refer to ANTELMO Collazo's documentation for discussion of other issues. Andrea Campa MD . Additional Copies To Jil Schmid D.O.
[2018-01-24 18:00] VITALS: BP 151/96; PULSE 78; TEMP 36.8; O2SAT 98
[2018-01-24 18:15] VITALS: BP 168/104; PULSE 83; TEMP 36.8; O2SAT 98
[2018-01-24] MEDS ORDERED: PHYTONADIONE 5 MG TAB PO ONE (18:30)
[2018-01-24 19:13] VITALS: BP 184/94; PULSE 80; TEMP 37.2; O2SAT 100
--- NOTE | 2018-01-24 19:57 | EMERGENCY ROOM VISIT NOTE ---
ED Visit Note First contact with patient: 13:17 I have personally evaluated this patient examined her and reviewed the pertinent labs and data. I have discussed the case with Rosalba Kemp,the physician topographical field assistant and agree with the plan. Please refer to the PA note. This patient comes in as described above. She had an episode where she almost passed out and became pale. She feels fine and looks well appearing on my exam. She has a normal neurologic exam. Her heart is regular rate and rhythm and has stable vital signs. She apparently was hypotensive in the field and was hypotensive when she first got here and responded to fluids. She was found to have a significantly low hemoglobin of 7.5 and I think this contributed or cause some of this. She's not reported any tete blood or black colors in her stool however she was guaiac positive here. She's had nothing to suggest acute cardiac event. I do think she needs to be admitted for further evaluation and treatment of her anemia and her near syncopal episode and hypotension.
[2018-01-24] MEDS ORDERED: HYDROCORTISONE IV 25 MG in SYRINGE 0 ML IV ONE (21:40)
[2018-01-24 22:29] LABS: HEMATOCRIT 27.2 % (37-47); HEMOGLOBIN 8.1 g/dL (12.0-16.0)
[2018-01-25] VITALS (7 sets, daily range): BP systolic 91–130; BP diastolic 59–82; PULSE 72–89; TEMP 36.3–37.4; O2SAT 91–97
[2018-01-25] MEDS: PANTOprazole INJ 40 MG in DEXTROSE 5% 100ML IV SCH (04:40)
--- NOTE | 2018-01-25 07:03 | Clinical Documentation Query ---
CLINICAL DOCUMENTATION QUERY 67 year old female who presents to the Emergency Room via ALS with complaints of feeling lightheaded. In your clinical opinion is this patient being managed for: ( ) Acute blood loss anemia in setting of GI bleeding treated with PRBC's and GI consult ( ) Not Agree ( ) Other explanation of clinical findings (Please Explain) ( ) Unable to determine (Please Define) ( ) Need to Discuss The medical record reflects the following clinical findings, treatment, and risk factors. Clinical Indicators: FOCB+, Hgb 7.2, Hct 25.2, Treatment: 1 unit PRBC's, IVF's, GI consult, Risk Factors: Age, ASA, NSAID, Warfarin, & Prednisone therapies Please clarify and document your clinical opinion in the progress notes and discharge summary. Terms such as "probable", "suspected", "likely", "questionable", "possible", or "still to be ruled out" are acceptable. IF IN AGREEMENT, YOU MUST DOCUMENT ABOVE DIAGNOSTIC STATEMENT IN DAILY PROGRESS NOTES AND DISCHARGE SUMMARY. This document is not part of the patient's record. Thank You, Kip Jaramillo, CANDIDA [phone]
[2018-01-25 07:35] LABS: HEMATOCRIT 25.3 % (37-47); HEMOGLOBIN 7.6 g/dL (12.0-16.0); MEAN CORPUSCULAR HEMOGLOBIN 22.2 pg (25-34); MEAN PLATELET VOLUME 8.1 fL (7.4-10.4); PLATELET COUNT 420 K/uL (130-400); RED CELL DISTRIBUTION WIDTH SD 48.8 fL (36.4-46.3); WHITE BLOOD COUNT 4.83 K/uL (4.8-10.8)
[2018-01-25 07:43] LABS: INR 1.4 (0.9-1.1)
[2018-01-25 08:26] LABS: CALCIUM 8.1 mg/dl (8.5-10.1); CREATININE 0.79 mg/dl (0.60-1.20); POTASSIUM 3.6 mmol/L (3.5-5.1)
[2018-01-25] MEDS: HYDROCORTISONE IV 25 MG in SYRINGE 0 ML IV SCH ×2 (08:43→20:46)
[2018-01-25] MEDS: CEROVITE ADV FORMULA TAB PO SCH (08:44)
[2018-01-25] MEDS: ESCITALOPRAM OXALATE 20 MG TAB PO SCH (08:44)
[2018-01-25] MEDS: CHOLECALCIFEROL 1000 INTER.UNIT TAB PO SCH (08:44)
[2018-01-25] MEDS: OXYBUTYNIN CHLORIDE 5 MG TABCR PO SCH (08:44)
[2018-01-25] MEDS ORDERED: PROPOFOL IV EMULSION 10 MG/ML 20 ML VIAL IV ONE (09:17)
[2018-01-25] MEDS ORDERED: LIDOCAINE HCL 2% 2 ML VIAL (20MG/ML) ONE (09:17)
--- NOTE | 2018-01-25 09:17 | Gastrointestinal Consultation ---
Gastrointestinal Consultation Date of Consultation: Jan 25, 2018 Attending Physician: Jay Jay Consulting Physician: Svetlana Reason for Consultation: anemia, heme + stools History of Present Illness Patient is a 67 year old female w/ MS on prednsione, PE on coumadin who presented through the ED w/ headache, lightheadedness and dizziness. GI was asked to evaluate the pt for anemia, heme + stool. Pt was seen and evaluated, chart reviewed. Pt notes she was in her typical state of health, went to lunch w / a friend where she had a terrible HOLT w/ lightheadness. Called 911. She has had issues of recent w/ palpations and intermittent SOB w/ activity. She has been moving her bowels well, daily formed. No black or bloody stools. Does not regulary have upper abdominal pain, nausea. N vomiting, no report of coffee ground emesis or hematemesis. Denies fever, chills, CP. She has lost weight recently, noting her pants are fitting differently but is unable to quantify how much. NSAIDs: 325mg ASA x 4 daily Steroids: chronic prednisone AC: on coumadin In ED pt was hypotensive w/ BP 78/52, now BP 117/74 w/ pulse 89. Hgb: 7.6, plt 420 INR: 1.4 Past Medical/Surgical History Medical Problems: (1) Bilateral pulmonary embolism Status: Acute (2) Chest pain Status: Acute (3) Substernal chest pain Status: Acute (4) Subtherapeutic international normalized ratio (INR) Status: Acute (5) Symptomatic anemia Status: Acute (6) Ulcer of left ankle Status: Acute Past Medical History: breast CA, neurogenic bladder, MS, hx PE on AC, DVT, raynauds Past Surgical History: left hip ORIF, left mastectomy appendectomy partial hysterectomy Family History FH: CAD (coronary artery disease) MOTHER FH: thyroid cancer SISTER Social History Smoking Status: Former Smoker Alcohol Use: none Drug Use: none Marital Status: Occupation Status: retired Allergies Coded Allergies: No Known Allergies (Unverified , 12/06/17) Current Medications Home Meds and Scripts Medications Dose Route/Sig Max Daily Dose Days Date Category Dose Instructions Copaxone (Glatiramer Acetate) 40 Mg/Ml Inj 1 Ml SC UD 01/24/18 Reported Three times a week - Mon, Wed, Fri Doxycycline Hyclate 50 Mg Cap 1 Cap PO Q2D 01/24/18 Reported Ampyra (Dalfampridine) 10 Mg Tab 1 Tab PO DAILY 01/24/18 Reported Aspirin 325 Mg Tab 1 Tab PO DAILY 01/24/18 Reported Actonel (Risedronate Sodium) 150 Mg Tab 1 Tab PO MONTHLY 30 11/11/17 Reported Ditropan Xl (Oxybutynin Chloride) 15 Mg Tab 1 Tab PO QAM 10/12/17 Reported Warfarin Sodium 5 Mg Tab 5 Mg PO QPM 06/20/17 Reported Mvi With Minerals (Multivitamins/Minerals) Tab 1 Tab PO DAILY 06/20/17 Reported Vitamin D 1000 Unit (Cholecalciferol) 1,000 Unit Cap 1,000 Inter.unit PO QAM 05/06/13 Reported Prednisone 10 Mg Tab 10 Mg PO QAM 07/01/12 Reported Zanaflex (Tizanidine HCl) 4 Mg Tab 4 Mg PO QID 12/02/11 Reported Lexapro (Escitalopram Oxalate) 20 Mg Tab 20 Mg PO QAM 12/02/11 Reported Review of Systems Constitutional: + weight loss, + weakness, + fatigue, No fever, No chills, No sweats Eyes: No worsening of vision, No diplopia ENT: No hearing loss, No unusual epistaxis, No nasal symptoms, No trouble swallowing, No pain on swallowing Respiratory: + shortness of breath, No cough, No sputum, No wheezing, No dyspnea on exertion, No dyspnea at rest, No hemoptysis Cardiac: + edema, + palpitations, No chest pain, No orthopnea Abdomen: No pain, No nausea, No vomiting, No diarrhea, No constipation, No GI bleeding, No dysphagia, No odynophagia, No acolic stools, No jaundice, No dark urine Skin: No rash, No itch, No color change, No jaundice Physical Exam Date Time Temp Pulse Resp B/P (MAP) Pulse Ox O2 Delivery O2 Flow Rate FiO2 01/25/18 07:40 37.3 89 18 117/74 (88) 95 Room Air 01/25/18 04:28 37.4 89 17 111/66 (81) 95 Room Air 01/25/18 04:00 Room Air 01/25/18 00:20 37.1 86 17 129/76 (93) 96 Room Air 2/28/18 00:00 Room Air 01/24/18 20:00 Room Air 01/24/18 19:13 37.2 80 18 184/94 (124) 100 Room Air 01/24/18 18:45 Room Air 01/24/18 18:15 36.8 83 20 168/104 98 01/24/18 18:00 36.8 78 22 151/96 98 01/24/18 16:00 89 18 146/95 96 Room Air 01/24/18 15:00 83 18 140/84 Room Air 01/24/18 14:22 75 20 110/74 96 Room Air 01/24/18 13:50 75 18 103/69 Room Air 01/24/18 13:20 36.6 76 20 78/52 94 Room Air 01/24/18 13:19 75 General Appearance: no apparent distress Eyes: PERRL ENT: hearing grossly normal Neck: supple, thyroid normal, no JVD, trachea midline Respiratory/Chest: lungs clear, normal breath sounds, no respiratory distress, no accessory muscle use Cardiovascular: regular rate, rhythm, no gallop, no JVD, no murmur Abdomen: normal bowel sounds, non tender, soft, no organomegaly, no pulsatile mass Neurologic/Psych: alert, normal mood/affect, oriented x 3 Skin: normal color, warm/dry, no rash Laboratory Results Last 24 Hours Test 01/24/18 14:00 01/24/18 14:07 01/24/18 20:35 01/24/18 21:53 White Blood Count 7.89 K/uL Red Blood Count 3.40 M/uL Hemoglobin 7.2 g/dL 8.1 g/dL Hematocrit 25.2 % 27.2 % Mean Corpuscular Volume 74.1 fL Mean Corpuscular Hemoglobin 21.2 pg Mean Corpuscular Hemoglobin Concent 28.6 g/dl Platelet Count 457 K/uL Mean Platelet Volume 8.5 fL Neutrophils (%) (Auto) 90.1 % Lymphocytes (%) (Auto) 4.9 % Monocytes (%) (Auto) 3.8 % Eosinophils (%) (Auto) 0.5 % Basophils (%) (Auto) 0.4 % Neutrophils # (Auto) 7.11 K/uL Lymphocytes # (Auto) 0.39 K/uL Monocytes # (Auto) 0.30 K/uL Eosinophils # (Auto) 0.04 K/uL Basophils # (Auto) 0.03 K/uL RDW Standard Deviation 47.8 fL RDW Coefficient of Variation 17.6 % Immature Granulocyte % (Auto) 0.3 % Immature Granulocyte # (Auto) 0.02 K/uL Hypochromasia PRESENT Anisocytosis PRESENT Microcytosis PRESENT Prothrombin Time 20.9 SECONDS Prothromb Time International Ratio 2.0 Activated Partial Thromboplast Time 32.2 SECONDS Partial Thromboplastin Ratio 1.2 Sodium Level 139 mmol/L Potassium Level 4.0 mmol/L Chloride Level 106 mmol/L Carbon Dioxide Level 25 mmol/L Anion Gap 8.0 mmol/L Blood Urea Nitrogen 20 mg/dl Creatinine 1.04 mg/dl Est Creatinine Clear Calc Drug Dose 50.5 ml/min Estimated GFR () 65.3 Estimated GFR (Non- 56.3 BUN/Creatinine Ratio 19.2 Random Glucose 92 mg/dl Calcium Level 8.3 mg/dl Magnesium Level 2.2 mg/dl Total Bilirubin 0.3 mg/dl Aspartate Amino Transf (AST/SGOT) 21 U/L Alanine Aminotransferase (ALT/SGPT) 23 U/L Alkaline Phosphatase 52 U/L Total Protein 6.5 gm/dl Albumin 3.2 gm/dl Globulin 3.3 gm/dl Albumin/Globulin Ratio 1.0 Procalcitonin < 0.05 ng/ml Bedside Lactic Acid Venous 3.21 mmol/L Bedside Troponin I < 0.030 ng/ml Urine Color YELLOW Urine Appearance CLEAR Urine pH 8.0 Urine Specific [place] 1.007 Urine Protein NEG Urine Glucose (UA) NEG Urine Ketones NEG Urine Occult Blood NEG Urine Nitrite NEG Urine Bilirubin NEG Urine Urobilinogen NEG Urine Leukocyte Esterase NEG Lactic Acid Level 1.6 mmol/L Test 01/25/18 07:11 White Blood Count 4.83 K/uL Red Blood Count 3.42 M/uL Hemoglobin 7.6 g/dL Hematocrit 25.3 % Mean Corpuscular Volume 74.0 fL Mean Corpuscular Hemoglobin 22.2 pg Mean Corpuscular Hemoglobin Concent 30.0 g/dl RDW Standard Deviation 48.8 fL RDW Coefficient of Variation 18.0 % Platelet Count 420 K/uL Mean Platelet Volume 8.1 fL Prothrombin Time 14.9 SECONDS Prothromb Time International Ratio 1.4 Sodium Level 141 mmol/L Potassium Level 3.6 mmol/L Chloride Level 108 mmol/L Carbon Dioxide Level 26 mmol/L Anion Gap 7.0 mmol/L Blood Urea Nitrogen 15 mg/dl Creatinine 0.79 mg/dl Est Creatinine Clear Calc Drug Dose 66.4 ml/min Estimated GFR () 91.0 Estimated GFR (Non- 78.6 BUN/Creatinine Ratio 18.7 Random Glucose 78 mg/dl Calcium Level 8.1 mg/dl Impression Patient is a 67 year old female w/ anemia and heme positive stool on chronic prednisone, coumadin and ASA. She has not had any melena, BRBPR, coffee ground emesis or hematemesis. Has never had an EGD/Colon. Due to her anemia, will need to arrange endoscopic evaluation Plan NPO EGD Trend H&H Transfuse PRN Monitor stools Ok to continue PPI for now, pending results of EGD will plan for colonoscopy to be arranged either as an IP or OP ATTESTATION: I have performed a history and physical examination of this patient and reviewed the electronic record. Specifically, on history there was no gross GI bleeding, and on physical examination abdomen is soft and nontender. I have discussed the case with KEVIN Peña. The above note reflects my findings, conclusions, and recommendations. Louis Mota MD
[2018-01-25] MEDS ORDERED: FENTANYL CITRATE INJ 50 MCG/1 ML 2 ML VIAL ONE (09:18)
--- NOTE | 2018-01-25 10:46 | GI REPORT ---
Procedure Date: 01/25/2018 10:20 AM Procedure: Upper GI endoscopy Indications: Iron deficiency anemia Medicines: Monitored Anesthesia Care Complications: No immediate complications. Estimated blood loss: None. Estimated Blood Loss: Estimated blood loss: none. Procedure: Pre-Anesthesia Assessment: - Prior to the procedure, a History and Physical was performed, and patient medications, allergies and sensitivities were reviewed. The patient's tolerance of previous anesthesia was reviewed. - ASA Grade Assessment: III - A patient with severe systemic disease. After obtaining informed consent, the endoscope was passed under direct vision. Throughout the procedure, the patient's blood pressure, pulse, and oxygen saturations were monitored continuously. The Scope was introduced through the mouth, and advanced to the third part of the duodenum. Small bowel enteroscopy was deemed necessary. The upper GI endoscopy was accomplished with ease. The patient tolerated the procedure well. Findings: The examined esophagus was normal. The Z-line was regular and was found 37 cm from the incisors. A small hiatal hernia was present. Patchy mild inflammation characterized by erythema was found in the entire examined stomach. Biopsies were taken with a cold forceps for Helicobacter pylori testing. The examined duodenum was normal. Biopsies for histology were taken with a cold forceps for evaluation of celiac disease. Verification of patient identification for the specimens was done by the physician and nurse using the patient's name, date and medical record number. Impression: - Normal esophagus. - Z-line regular, 37 cm from the incisors. - Small hiatal hernia. - Gastritis. Biopsied. - Normal examined duodenum. Biopsied. Recommendation: - Perform a colonoscopy tomorrow. - [facility] care. Louis Mota M.D. Louis Mota MD 01/25/2018 10:45:33 AM This report has been signed electronically. Note Initiated On: 01/25/2018 10:20 AM I attest to the content of the Intraoperative Record and orders documented therein, exceptions below
--- NOTE | 2018-01-25 11:27 | Anesthesiology Progress Note ---
Anesthesia Post Op Note Date & Time Jan 25, 2018 at 11:27 Vital Signs Pain Intensity: 0 Vital Signs Past 12 Hours Date Time Temp Pulse Resp B/P (MAP) Pulse Ox O2 Delivery O2 Flow Rate FiO2 01/25/18 11:16 80 16 125/68 (87) 98 Room Air 01/25/18 10:59 85 16 134/77 (96) 97 Room Air 01/25/18 10:44 88 12 154/82 (106) 95 Room Air 01/25/18 09:15 37.3 90 16 155/86 (109) 95 Room Air 01/25/18 08:00 Room Air 01/25/18 07:40 37.3 89 18 117/74 (88) 95 Room Air 01/25/18 04:28 37.4 89 17 111/66 (81) 95 Room Air 01/25/18 04:00 Room Air 01/25/18 00:20 37.1 86 17 129/76 (93) 96 Room Air 01/25/18 00:00 Room Air Notes Mental Status: alert / awake / arousable, participated in evaluation Pt Amnestic to Procedure: Yes Nausea / Vomiting: adequately controlled Pain: adequately controlled Airway Patency, RR, SpO2: stable & adequate BP & HR: stable & adequate Hydration State: stable & adequate Anesthetic Complications: no major complications apparent
--- NOTE | 2018-01-25 14:17 | Progress Note ---
Progress Note Date of Service Jan 25, 2018. Progress Note ID Consult Dictated #[id number] A/P: 1. LE wound - h/o MSSA -Currently being followed off of abx, s/p outpt dalvance infusion -Can follow up with Dr. Liz post d/c, states she has f/u visit already scheduled -No additional abx at this time -thank you
--- NOTE | 2018-01-25 14:25 | INFECT. DISEASE CONSULTATION ---
DATE OF CONSULTATION: 01/25/2018 HISTORY OF PRESENT ILLNESS: This is a 67-year-old female who was admitted to the hospital after a near syncopal episode yesterday. She was found to be anemic and underwent an EGD today. She is scheduled for colonoscopy. She has not had any other episodes of near syncope on my examination and her daughter is present. She denies any chest pain, cough, shortness of breath, nausea, vomiting or diarrhea. She has seen Dr. Liz in the past for a MSSA wound ulcer on her lower extremity. She was on doxycycline and was receiving dalbavancin. She states she has been off antibiotics for some time. She does have an MRI scheduled and a followup appointment scheduled with Dr. Liz in the near future. Her white blood cell count is normal. She has been afebrile. She has not been on any antibiotics. Her procalcitonin was negative. Urinalysis is negative. Blood cultures are pending. A chest x-ray was negative. She is eating lunch on my examination and has no complaints. Her remaining review of systems is unremarkable. PAST MEDICAL HISTORY: Significant for breast cancer, history of DVT, multiple sclerosis, neurogenic bladder, osteoporosis, history of PE, and Raynaud disease. PAST SURGICAL HISTORY: Significant for mastectomy, appendectomy, ORIF of the left hip, intrathecal pain pump, IVC filter, and hysterectomy. FAMILY HISTORY: Noncontributory. SOCIAL HISTORY: Significant for history of tobacco use. She denies any alcohol or drug use. ALLERGIES: She has no known drug allergies. MEDICATIONS: Include Dulcolax, MiraLax, vitamin D, Lexapro, multivitamins, Ditropan, hydrocortisone, Zanaflex, Tylenol, milk of magnesia, and Zofran. PHYSICAL EXAMINATION: VITAL SIGNS: She is afebrile, pulse 79, respiratory rate 18, blood pressure 100/66, oxygen saturation is 95-97% on room air. GENERAL: She is awake, alert and oriented x3. She is in no acute distress. HEENT: Mucous membranes are moist. Extraocular muscles are intact. HEART: Regular. LUNGS: Clear. ABDOMEN: Soft. EXTREMITIES: There is no lower extremity edema. LABORATORY STUDIES: CBC today reveals a white blood cell count of 4.8, hemoglobin 7.6, and platelets are 420. Chemistry panel reveals a sodium of 141, potassium 3.6, chloride 108, bicarbonate 26, BUN 15, creatinine 0.7, and glucose is 78. Urinalysis was unremarkable. Blood cultures are pending. IMAGING: As above. ASSESSMENT AND PLAN: History of a wound ulceration. She is currently being followed off the antibiotics and will be continued to be followed off the antibiotics during her hospital stay. She can follow up with Dr. Liz on an outpatient basis is already previously scheduled. No further ID recommendations at this time.
[2018-01-25 14:56] LABS: HEMATOCRIT 29.1 % (37-47); HEMOGLOBIN 8.6 g/dL (12.0-16.0)
[2018-01-25] MEDS ORDERED: POLYETHYLENE GLYCER PWD 238 GM BTL PO SCH (17:00)
[2018-01-25] MEDS ORDERED: BISACODYL 5 MG TABEC PO ONE (17:00)
[2018-01-25] MEDS ORDERED: POLYETHYLENE (MIRALAX) 17 GM PACK PO ONE (17:00)
[2018-01-25] MEDS: POLYETHYLENE (MIRALAX) 17 GM PACK PO SCH ×2 (17:27→20:41)
--- NOTE | 2018-01-25 19:39 | Progress Note ---
Internal Med Progress Note Date of Service: Jan 25, 2018. Provider Documentation: SUBJECTIVE: s/p egd today resting comfortably denies nausea or abdominal pain no sob or chest pain awaiting colonoscopy in am OBJECTIVE: Vital Signs-as noted below Exam: General-alert and Oriented. Not in distress. ENT-normal hearing Neck-no neck masses Lungs-cta b/l no wheezing or crackles Heart-s1 and s2 heard regular no murmurs Abdomen-soft bowel sounds present non tender no distension Extremities-no erythema Neuro-alert and awake moves extremities Lab data as noted below. ASSESSMENT & PLAN: SYMPTOMATIC ANEMIA WITH HYPOTENSION SUSPECTED UPPER GI BLEED - ACUTE BLOOD LOSS ANEMIA presented with hypotension and hb 7.2 Heme positive stool on Coumadin and inr 2.0 on presentation started on Protonix drip holding ASA, Coumadin, prednisone, doxycycline s/p one prbc hb 8.6 today s/p egd showing gastritis plan for colonoscopy in am continue to monitor in tele PALPITATIONS EKG: NSR today.improved HX PE ON COUMADIN INR: 2.0.received vitamin k inr 1.4 today CHRONIC L ANKLE WOUND AND HX OSTEOMYELITIS doxycycline on hold 'ID ok with holding abx and recommends f/u as out patinet ELEVATED LACTIC ACID: Lactic acid: 3.2. Procalcitonin ordered and was WNL. do not suspect sepsis at this time. repeat lactic acid normalized MS Pt with intrathecal baclofen pump. Symptoms at baseline currently holding prednisone currently To continue copaxone, zanaflex, ampyra DEPRESSION On Lexapro HX L BREAST CA S/P SURGERY DVT Prophylaxis SCDs secondary to probable GI bleed Disposition monitor in tele to be determined Vital Signs: Date Time Temp Pulse Resp B/P (MAP) Pulse Ox O2 Delivery O2 Flow Rate FiO2 01/26/18 07:24 37.4 94 16 147/94 (111) 98 Room Air 01/26/18 06:55 37.4 87 19 126/80 (95) 95 Room Air 01/26/18 04:00 Room Air 01/26/18 03:32 36.9 85 16 118/72 (87) 96 Room Air 01/26/18 00:00 Room Air 01/25/18 23:50 36.6 76 19 117/73 (88) 97 Room Air 01/25/18 20:00 Room Air 01/25/18 19:32 36.5 72 16 130/82 (98) Room Air 01/25/18 16:00 Room Air 01/25/18 15:33 36.3 75 16 91/59 (70) 91 Room Air 01/25/18 12:44 36.9 79 18 100/66 (77) 96 Room Air 01/25/18 12:00 Room Air 01/25/18 11:16 80 16 125/68 (87) 98 Room Air 01/25/18 10:59 85 16 134/77 (96) 97 Room Air 01/25/18 10:44 88 12 154/82 (106) 95 Room Air 01/25/18 09:15 37.3 90 16 155/86 (109) 95 Room Air 01/25/18 08:00 Room Air 01/25/18 07:40 37.3 89 18 117/74 (88) 95 Room Air Lab Results: Results Past 24 Hours Test 01/25/18 12:22 01/25/18 13:54 01/25/18 21:47 01/26/18 05:55 Range/Units Hemoglobin 8.6 8.4 7.8 12.0-16.0 g/dL Hematocrit 29.1 28.0 27.1 37-47 % White Blood Count 5.54 4.8-10.8 K/uL Red Blood Count 3.64 4.2-5.4 M/uL Mean Corpuscular Volume 74.5 80-100 fL Mean Corpuscular Hemoglobin 21.4 25-34 pg Mean Corpuscular Hemoglobin Concent 28.8 32-36 g/dl Platelet Count 382 130-400 K/uL Mean Platelet Volume 8.6 7.4-10.4 fL Neutrophils (%) (Auto) 61.5 % Lymphocytes (%) (Auto) 24.7 % Monocytes (%) (Auto) 11.2 % Eosinophils (%) (Auto) 2.0 % Basophils (%) (Auto) 0.4 % Neutrophils # (Auto) 3.41 1.4-6.5 K/uL Lymphocytes # (Auto) 1.37 1.2-3.4 K/uL Monocytes # (Auto) 0.62 0.11-0.59 K/uL Eosinophils # (Auto) 0.11 0-0.5 K/uL Basophils # (Auto) 0.02 0-0.2 K/uL RDW Standard Deviation 49.0 36.4-46.3 fL RDW Coefficient of Variation 17.9 11.5-14.5 % Immature Granulocyte % (Auto) 0.2 % Immature Granulocyte # (Auto) 0.01 0.00-0.02 K/uL Hypochromasia PRESENT Microcytosis PRESENT Sodium Level 139 136-145 mmol/L Potassium Level 3.5 3.5-5.1 mmol/L Chloride Level 107 98-107 mmol/L Carbon Dioxide Level 24 21-32 mmol/L Anion Gap 8.0 3-11 mmol/L Blood Urea Nitrogen 11 7-18 mg/dl Creatinine 0.68 0.60-1.20 mg/dl Est Creatinine Clear Calc Drug Dose 77.2 ml/min Estimated GFR () 106.4 Estimated GFR (Non- 91.8 BUN/Creatinine Ratio 16.5 10-20 Random Glucose 81 70-99 mg/dl Calcium Level 8.4 8.5-10.1 mg/dl Magnesium Level 2.1 1.8-2.4 mg/dl
[2018-01-25 22:06] LABS: HEMOGLOBIN 8.4 g/dL (12.0-16.0)
[2018-01-26] VITALS (15 sets, daily range): BP systolic 109–180; BP diastolic 70–95; PULSE 71–94; TEMP 36.4–37.4; O2SAT 91–100
[2018-01-26 06:51] LABS: HEMATOCRIT 27.1 % (37-47); HEMOGLOBIN 7.8 g/dL (12.0-16.0); MEAN CELL VOLUME 74.5 fL (80-100); MEAN CORPUSCULAR HEMOGLOBIN 21.4 pg (25-34); MEAN CORPUSCULAR HGB CONC 28.8 g/dl (32-36); MEAN PLATELET VOLUME 8.6 fL (7.4-10.4); PLATELET COUNT 382 K/uL (130-400); RED CELL DISTRIBUTION WIDTH CV 17.9 % (11.5-14.5); WHITE BLOOD COUNT 5.54 K/uL (4.8-10.8)
[2018-01-26 07:09] LABS: CALCIUM 8.4 mg/dl (8.5-10.1); CREATININE 0.68 mg/dl (0.60-1.20); POTASSIUM 3.5 mmol/L (3.5-5.1)
[2018-01-26 07:14] LABS: BASO % 0.4 %; BASO ABS # 0.02 K/uL (0-0.2); EOS ABS # 0.11 K/uL (0-0.5); IG# 0.01 K/uL (0.00-0.02); LYMPH % 24.7 %; LYMPH ABS # 1.37 K/uL (1.2-3.4); MONO % 11.2 %; MONO ABS # 0.62 K/uL (0.11-0.59); NEUT % 61.5 %; NEUT ABS # 3.41 K/uL (1.4-6.5)
[2018-01-26] MEDS: CHOLECALCIFEROL 1000 INTER.UNIT TAB PO SCH (07:31)
[2018-01-26] MEDS: ESCITALOPRAM OXALATE 20 MG TAB PO SCH (07:31)
[2018-01-26] MEDS: OXYBUTYNIN CHLORIDE 5 MG TABCR PO SCH (07:31)
[2018-01-26] MEDS: CEROVITE ADV FORMULA TAB PO SCH (07:31)
[2018-01-26] MEDS: HYDROCORTISONE IV 25 MG in SYRINGE 0 ML IV SCH ×2 (07:31→20:03)
[2018-01-26] MEDS ORDERED: ACETAMINOPHEN 325 MG TAB PO SCH (09:00)
[2018-01-26] MEDS ORDERED: FUROSEMIDE INJ 20 MG in SYRINGE 0 ML IV SCH (10:00)
--- NOTE | 2018-01-26 12:00 | Endo History and Physical ---
History & Physical Date of Service: Jan 26, 2018. Chief Complaint: GI bleeding Referring Physician: History of Present Illness Patient admitted with anemia, EGD did not show bleeding source. Past Medical History Neurological Disorder, Arthritis, Fractures, Anxiety, Cancer, Thrombophlebitis, Other, Depression Past Surgical History Hx Cardiac Surgery: No Hx Internal Defibrillator: No Hx Pacemaker: No Hx Abdominal Surgery: No Hx Post-Op Nausea and Vomiting: No Hx Cancer Surgery: Yes (LT BREAST MASTECTOMY) Hx Thoracic Surgery: No Hx Orthopedic: Yes (LT ALFIE) Hx Urinary Tract Surgery: No Social History Smoking Status: Former Smoker Smokeless Tobacco Use: No Hx Substance Use: No Hx Alcohol Use: No Allergies Coded Allergies: No Known Allergies (Unverified , 12/06/17) Current Medications Reported Home Medications Medications Dose Route/Sig Max Daily Dose Days Date Category Dose Instructions Copaxone (Glatiramer Acetate) 40 Mg/Ml Inj 1 Ml SC UD 01/24/18 Reported Three times a week - Mon, Wed, Fri Doxycycline Hyclate 50 Mg Cap 1 Cap PO Q2D 01/24/18 Reported Ampyra (Dalfampridine) 10 Mg Tab 1 Tab PO DAILY 01/24/18 Reported Aspirin 325 Mg Tab 1 Tab PO DAILY 01/24/18 Reported Actonel (Risedronate Sodium) 150 Mg Tab 1 Tab PO MONTHLY 30 11/11/17 Reported Ditropan Xl (Oxybutynin Chloride) 15 Mg Tab 1 Tab PO QAM 10/12/17 Reported Warfarin Sodium 5 Mg Tab 5 Mg PO QPM 06/20/17 Reported Mvi With Minerals (Multivitamins/Minerals) Tab 1 Tab PO DAILY 06/20/17 Reported Vitamin D 1000 Unit (Cholecalciferol) 1,000 Unit Cap 1,000 Inter.unit PO QAM 05/06/13 Reported Prednisone 10 Mg Tab 10 Mg PO QAM 07/01/12 Reported Zanaflex (Tizanidine HCl) 4 Mg Tab 4 Mg PO QID 12/02/11 Reported Lexapro (Escitalopram Oxalate) 20 Mg Tab 20 Mg PO QAM 12/02/11 Reported Vital Signs Weight (Kilograms): 67.000 Height (Feet): 5 Height (Inches): 6.00 Date Time Temp Pulse Resp B/P (MAP) Pulse Ox O2 Delivery O2 Flow Rate FiO2 01/26/18 11:30 36.7 78 18 180/95 100 01/26/18 11:14 36.9 82 18 175/98 (123) 100 Room Air 01/26/18 10:30 36.7 78 18 155/74 99 01/26/18 10:00 36.7 80 20 134/77 99 01/26/18 09:45 36.5 78 20 135/74 98 01/26/18 09:31 36.7 88 16 133/84 99 01/26/18 08:00 Room Air 01/26/18 07:24 37.4 94 16 147/94 (111) 98 Room Air 01/26/18 06:55 37.4 87 19 126/80 (95) 95 Room Air 01/26/18 04:00 Room Air 01/26/18 03:32 36.9 85 16 118/72 (87) 96 Room Air 01/26/18 00:00 Room Air 01/25/18 23:50 36.6 76 19 117/73 (88) 97 Room Air 01/25/18 20:00 Room Air 01/25/18 19:32 36.5 72 16 130/82 (98) Room Air 01/25/18 16:00 Room Air 01/25/18 15:33 36.3 75 16 91/59 (70) 91 Room Air 01/25/18 12:44 36.9 79 18 100/66 (77) 96 Room Air 01/25/18 12:00 Room Air Physical Exam General Appearance: WD/WN, no apparent distress Respiratory/Chest: Auscultation: breath sounds normal, no wheezing Cardiovascular: Heart Auscultation: RRR, no murmurs Assessment and Plan Colonoscopy today.
[2018-01-26] MEDS ORDERED: LIDOCAINE HCL 2% 2 ML VIAL (20MG/ML) ONE (12:21)
[2018-01-26] MEDS ORDERED: PROPOFOL IV EMULSION 10 MG/ML 20 ML VIAL IV ONE (12:21)
--- NOTE | 2018-01-26 12:23 | GI REPORT ---
Procedure Date: 01/26/2018 12:11 PM Procedure: Colonoscopy Indications: Heme positive stool, Iron deficiency anemia secondary to chronic blood loss Medicines: Monitored Anesthesia Care Complications: No immediate complications. Estimated blood loss: None. Estimated Blood Loss: Estimated blood loss: none. Procedure: Pre-Anesthesia Assessment: - Prior to the procedure, a History and Physical was performed, and patient medications, allergies and sensitivities were reviewed. The patient's tolerance of previous anesthesia was reviewed. - ASA Grade Assessment: III - A patient with severe systemic disease. After I obtained informed consent, the scope was passed under direct vision. Throughout the procedure, the patient's blood pressure, pulse, and oxygen saturations were monitored continuously. The scope was introduced through the anus with the intention of advancing to the cecum. The scope was advanced to the transverse colon before the procedure was aborted. Medications were given. The colonoscopy was performed with difficulty due to inadequate bowel prep. The patient tolerated the procedure well. The quality of the bowel preparation was inadequate. Findings: A large amount of stool was found in the entire colon, interfering with visualization. Procedure aborted. Impression: - Preparation of the colon was inadequate. - Stool in the entire examined colon. - No specimens collected. Recommendation: - Repeat colonoscopy tomorrow because the bowel preparation was poor. Louis Mota M.D. Louis Mota MD 01/26/2018 12:23:06 PM This report has been signed electronically. Note Initiated On: 01/26/2018 12:11 PM I attest to the content of the Intraoperative Record and orders documented therein, exceptions below
--- NOTE | 2018-01-26 12:38 | Anesthesiology Progress Note ---
Anesthesia Post Op Note Date & Time Jan 26, 2018 at 12:38 Vital Signs Pain Intensity: 0.0 Vital Signs Past 12 Hours Date Time Temp Pulse Resp B/P (MAP) Pulse Ox O2 Delivery O2 Flow Rate FiO2 01/26/18 12:22 36 85 16 132/80 (97) 100 Room Air 01/26/18 11:30 36.7 78 18 180/95 100 01/26/18 11:14 36.9 82 18 175/98 (123) 100 Room Air 01/26/18 10:30 36.7 78 18 155/74 99 01/26/18 10:00 36.7 80 20 134/77 99 01/26/18 09:45 36.5 78 20 135/74 98 01/26/18 09:31 36.7 88 16 133/84 99 01/26/18 08:00 Room Air 01/26/18 07:24 37.4 94 16 147/94 (111) 98 Room Air 01/26/18 06:55 37.4 87 19 126/80 (95) 95 Room Air 01/26/18 04:00 Room Air 01/26/18 03:32 36.9 85 16 118/72 (87) 96 Room Air Notes Mental Status: alert / awake / arousable, participated in evaluation Pt Amnestic to Procedure: Yes Nausea / Vomiting: adequately controlled Pain: adequately controlled Airway Patency, RR, SpO2: stable & adequate BP & HR: stable & adequate Hydration State: stable & adequate Anesthetic Complications: no major complications apparent
--- NOTE | 2018-01-26 14:24 | Progress Note ---
Progress Note Date of Service Jan 26, 2018. Progress Note Pt with poor prep for colonoscopy. Will repeat tomorrow. Ok for clear liquids today, complete colytely prep and NPO after midnight. Please use Fleets enema if there is inadequate prep.
[2018-01-26] MEDS ORDERED: LAVAGE SOLUTION 4000ML PO SCH (16:00)
--- NOTE | 2018-01-26 18:09 | Progress Note ---
Internal Med Progress Note Date of Service: Jan 26, 2018. Provider Documentation: SUBJECTIVE: still had black stools denies any nausea or abdominal pain 'no sob 'afebrile awaiting colonoscopy no chest pain OBJECTIVE: Vital Signs-as noted below Exam: General-alert and Oriented. Not in distress. ENT-normal hearing Neck-no neck masses Lungs-cta b/l no wheezing or crackles Heart-s1 and s2 heard regular no murmurs Abdomen-soft bowel sounds present non tender no distension Extremities-no erythema Neuro-alert and awake moves extremities Lab data as noted below. ASSESSMENT & PLAN: SYMPTOMATIC ANEMIA WITH HYPOTENSION SUSPECTED UPPER GI BLEED - ACUTE BLOOD LOSS ANEMIA presented with hypotension and hb 7.2 Heme positive stool on Coumadin and inr 2.0 on presentation started on Protonix drip holding ASA, Coumadin, prednisone, doxycycline s/p one prbc hb 8.6 today s/p egd showing gastritis could not do colonoscopy today because of poor prep- to plan for tomorrow. continue to monitor in tele PALPITATIONS EKG: NSR today.improved HX PE ON COUMADIN INR: 2.0.received vitamin k inr 1.4 today CHRONIC L ANKLE WOUND AND HX OSTEOMYELITIS doxycycline on hold 'ID ok with holding abx and recommends f/u as out patinet ELEVATED LACTIC ACID: Lactic acid: 3.2. Procalcitonin ordered and was WNL. do not suspect sepsis at this time. repeat lactic acid normalized MS Pt with intrathecal baclofen pump. Symptoms at baseline currently holding prednisone currently To continue copaxone, zanaflex, ampyra stable DEPRESSION On Lexapro HX L BREAST CA S/P SURGERY DVT Prophylaxis SCDs secondary to probable GI bleed Disposition monitor in tele to be determined await colonoscopy Vital Signs: Date Time Temp Pulse Resp B/P (MAP) Pulse Ox O2 Delivery O2 Flow Rate FiO2 01/26/18 16:10 36.8 85 16 140/92 (108) 91 Room Air 01/26/18 16:00 Room Air 01/26/18 15:46 36.9 78 20 144/83 01/26/18 14:15 36.7 93 18 142/70 98 01/26/18 14:00 36.7 87 16 133/74 98 01/26/18 13:44 36.4 78 22 145/93 98 01/26/18 12:55 85 16 147/93 (111) 83 Room Air 01/26/18 12:45 85 16 149/95 (113) 83 Room Air 01/26/18 12:38 84 16 149/95 (113) 100 Room Air 01/26/18 12:22 36 85 16 132/80 (97) 100 Room Air 01/26/18 11:30 36.7 78 18 180/95 100 01/26/18 11:14 36.9 82 18 175/98 (123) 100 Room Air 01/26/18 10:30 36.7 78 18 155/74 99 01/26/18 10:00 36.7 80 20 134/77 99 01/26/18 09:45 36.5 78 20 135/74 98 01/26/18 09:31 36.7 88 16 133/84 99 01/26/18 08:00 Room Air 01/26/18 07:24 37.4 94 16 147/94 (111) 98 Room Air 01/26/18 06:55 37.4 87 19 126/80 (95) 95 Room Air 01/26/18 04:00 Room Air 01/26/18 03:32 36.9 85 16 118/72 (87) 96 Room Air 01/26/18 00:00 Room Air 01/25/18 23:50 36.6 76 19 117/73 (88) 97 Room Air 01/25/18 20:00 Room Air 01/25/18 19:32 36.5 72 16 130/82 (98) Room Air Lab Results: Results Past 24 Hours Test 01/25/18 21:47 01/26/18 05:55 Range/Units Hemoglobin 8.4 7.8 12.0-16.0 g/dL Hematocrit 28.0 27.1 37-47 % White Blood Count 5.54 4.8-10.8 K/uL Red Blood Count 3.64 4.2-5.4 M/uL Mean Corpuscular Volume 74.5 80-100 fL Mean Corpuscular Hemoglobin 21.4 25-34 pg Mean Corpuscular Hemoglobin Concent 28.8 32-36 g/dl Platelet Count 382 130-400 K/uL Mean Platelet Volume 8.6 7.4-10.4 fL Neutrophils (%) (Auto) 61.5 % Lymphocytes (%) (Auto) 24.7 % Monocytes (%) (Auto) 11.2 % Eosinophils (%) (Auto) 2.0 % Basophils (%) (Auto) 0.4 % Neutrophils # (Auto) 3.41 1.4-6.5 K/uL Lymphocytes # (Auto) 1.37 1.2-3.4 K/uL Monocytes # (Auto) 0.62 0.11-0.59 K/uL Eosinophils # (Auto) 0.11 0-0.5 K/uL Basophils # (Auto) 0.02 0-0.2 K/uL RDW Standard Deviation 49.0 36.4-46.3 fL RDW Coefficient of Variation 17.9 11.5-14.5 % Immature Granulocyte % (Auto) 0.2 % Immature Granulocyte # (Auto) 0.01 0.00-0.02 K/uL Hypochromasia PRESENT Microcytosis PRESENT Sodium Level 139 136-145 mmol/L Potassium Level 3.5 3.5-5.1 mmol/L Chloride Level 107 98-107 mmol/L Carbon Dioxide Level 24 21-32 mmol/L Anion Gap 8.0 3-11 mmol/L Blood Urea Nitrogen 11 7-18 mg/dl Creatinine 0.68 0.60-1.20 mg/dl Est Creatinine Clear Calc Drug Dose 77.2 ml/min Estimated GFR () 106.4 Estimated GFR (Non- 91.8 BUN/Creatinine Ratio 16.5 10-20 Random Glucose 81 70-99 mg/dl Calcium Level 8.4 8.5-10.1 mg/dl Magnesium Level 2.1 1.8-2.4 mg/dl
[2018-01-27 03:54] VITALS: BP 142/81; PULSE 93; TEMP 37.1; O2SAT 95
[2018-01-27 06:19] LABS: BASO % 0.3 %; BASO ABS # 0.02 K/uL (0-0.2); EOS % 2.8 %; EOS ABS # 0.17 K/uL (0-0.5); HEMATOCRIT 30.5 % (37-47); HEMOGLOBIN 9.7 g/dL (12.0-16.0); IG# 0.01 K/uL (0.00-0.02); LYMPH % 23.8 %; LYMPH ABS # 1.44 K/uL (1.2-3.4); MEAN CELL VOLUME 74.4 fL (80-100); MEAN CORPUSCULAR HEMOGLOBIN 23.7 pg (25-34); MEAN CORPUSCULAR HGB CONC 31.8 g/dl (32-36); MEAN PLATELET VOLUME 8.5 fL (7.4-10.4); MONO % 11.2 %; MONO ABS # 0.68 K/uL (0.11-0.59); NEUT % 61.7 %; NEUT ABS # 3.74 K/uL (1.4-6.5); PLATELET COUNT 382 K/uL (130-400); RED CELL DISTRIBUTION WIDTH SD 48.7 fL (36.4-46.3); WHITE BLOOD COUNT 6.06 K/uL (4.8-10.8)
[2018-01-27 06:28] LABS: INR 1.1 (0.9-1.1)
[2018-01-27 06:37] LABS: CALCIUM 8.1 mg/dl (8.5-10.1); CREATININE 0.66 mg/dl (0.60-1.20); POTASSIUM 2.9 mmol/L (3.5-5.1)
[2018-01-27 07:47] VITALS: BP 164/81; PULSE 93; TEMP 37.3; O2SAT 96
[2018-01-27] MEDS ORDERED: POTASSIUM CHLR 10 MEQ / WTR 10 MEQ in PREMIXED WATER 100 ML IV SCH (08:15)
[2018-01-27] MEDS: CHOLECALCIFEROL 1000 INTER.UNIT TAB PO SCH (08:50)
[2018-01-27] MEDS: CEROVITE ADV FORMULA TAB PO SCH (08:50)
[2018-01-27] MEDS: ESCITALOPRAM OXALATE 20 MG TAB PO SCH (08:50)
[2018-01-27] MEDS: OXYBUTYNIN CHLORIDE 5 MG TABCR PO SCH (08:50)
[2018-01-27] MEDS ORDERED: POTASSIUM CHLORIDE 20 MEQ TABCR PO ONE (09:45)
[2018-01-27] MEDS: POTASSIUM CHLR 10 MEQ / WTR 10 MEQ in PREMIXED WATER 100 ML IV SCH ×2 (10:00→10:58)
[2018-01-27] MEDS: HYDROCORTISONE IV 25 MG in SYRINGE 0 ML IV SCH (10:08)
[2018-01-27 11:25] VITALS: BP 155/93; PULSE 77; TEMP 36.6; O2SAT 99
[2018-01-27] MEDS ORDERED: LIDOCAINE HCL 2% 2 ML VIAL (20MG/ML) ONE (11:47)
[2018-01-27] MEDS ORDERED: PROPOFOL IV EMULSION 10 MG/ML 20 ML VIAL IV ONE (11:47)
--- NOTE | 2018-01-27 12:05 | Gastroenterology Progress Note ---
Progress Note Date of Service: Jan 27, 2018 Subjective Pt evaluation today including: conversation w/ patient, conversation w/ family , physical exam, chart review, lab review Pt was seen and evaluated, chart reviewed. No acute events overnight. Was on clear liquids with NPO after midnight. Repeat prep due to poor prep. Tolerated prep. Notes a lot of liquid, yellow stools. No formed stools. No black or bloody stools. No fever, chills, CP, SOB EGD: negative NSAIDs: 325mg ASA x 4 daily Steroids: chronic prednisone AC: on coumadin Review of Systems Constitutional: No fever, No chills, No weight loss, No weakness Respiratory: No cough, No sputum, No shortness of breath, No dyspnea on exertion Cardiac: No chest pain, No orthopnea, No edema, No palpitations Abdomen: + diarrhea, No pain, No nausea, No vomiting, No constipation, No GI bleeding, No dysphagia Skin: No rash, No itch, No color change, No jaundice Medications Current Inpatient Medications Medications (Trade) Dose Ordered Sig/Fernando Route Start Time Stop Time Status Last Admin Dose Admin Acetaminophen (Tylenol Tab) 650 mg Q4H PRN PO 01/24/18 16:15 02/23/18 16:14 Magnesium Hydroxide (Milk Of Magnesia Susp) 30 ml Q12H PRN PO 01/24/18 16:15 02/23/18 16:14 Ondansetron HCl (Zofran Inj) 4 mg Q6H PRN IV 01/24/18 16:15 02/23/18 16:14 Nitroglycerin (Nitrostat Tab) 0.4 mg UD PRN SL 01/24/18 16:15 02/23/18 16:14 Cholecalciferol (Vitamin D Tab) 1,000 inter.unit QAM PO 01/25/18 09:00 02/24/18 08:59 01/27/18 08:50 1,000 INTER.UNIT Escitalopram Oxalate (Lexapro Tab) 20 mg QAM PO 01/25/18 09:00 02/24/18 08:59 01/27/18 08:50 20 MG Multivitamins/ Minerals (Multivitamin W/ Minerals Tab) 1 tab DAILY PO 01/25/18 09:00 02/24/18 08:59 01/27/18 08:50 1 TAB Tizanidine HCl (Zanaflex Tab) 4 mg QID PO 01/24/18 17:00 02/23/18 16:59 01/27/18 08:50 4 MG Miscellaneous Information (Order Awaiting Action) 1 ea QS N/A 01/24/18 18:00 02/23/18 17:59 Miscellaneous Information (Order Awaiting Action) 1 ea QS N/A 01/24/18 18:00 02/23/18 17:59 Oxybutynin Chloride (Ditropan-Xl Tab) 15 mg QAM PO 01/25/18 09:00 02/24/18 08:59 01/27/18 08:50 15 MG Miscellaneous Information (Order Awaiting Action) 1 ea QS N/A 01/25/18 00:00 02/24/18 00:00 Hydrocortisone Sodium Succinate 25 mg/Syringe 0.5 ml @ 4 mls/min Q12 IV 01/25/18 09:00 02/24/18 08:59 01/27/18 10:08 4 MLS/MIN Potassium Chloride 10 meq/ Prmx 100 ml @ 100 mls/hr Q1H IV 01/27/18 10:00 01/27/18 12:59 01/27/18 10:58 100 MLS/HR Objective Vital Signs Date Time Temp Pulse Resp B/P (MAP) Pulse Ox O2 Delivery O2 Flow Rate FiO2 01/27/18 11:25 36.6 77 18 155/93 (113) 99 Room Air 01/27/18 08:00 Room Air 01/27/18 07:47 37.3 93 18 164/81 (108) 96 Room Air 01/27/18 04:00 Room Air 01/27/18 03:54 37.1 93 18 142/81 (101) 95 Room Air 01/27/18 00:00 Room Air 01/26/18 23:25 36.8 78 18 153/87 (109) 100 Room Air 01/26/18 20:49 36.4 71 18 109/88 (95) 96 Room Air 01/26/18 20:00 Room Air 01/26/18 16:10 36.8 85 16 140/92 (108) 91 Room Air 01/26/18 16:00 Room Air 01/26/18 15:46 36.9 78 20 144/83 01/26/18 14:15 36.7 93 18 142/70 98 01/26/18 14:00 36.7 87 16 133/74 98 01/26/18 13:44 36.4 78 22 145/93 98 01/26/18 12:55 85 16 147/93 (111) 83 Room Air 01/26/18 12:45 85 16 149/95 (113) 83 Room Air 01/26/18 12:38 84 16 149/95 (113) 100 Room Air 01/26/18 12:22 36 85 16 132/80 (97) 100 Room Air Physical Exam General Appearance: no apparent distress Eyes: normal inspection ENT: hearing grossly normal Neck: supple Respiratory/Chest: lungs clear, normal breath sounds Cardiovascular: regular rate, rhythm, no gallop Abdomen: normal bowel sounds, non tender, soft, no organomegaly Neurologic/Psych: alert, normal mood/affect, oriented x 3 Skin: normal color, no jaundice Laboratory Results Last 24 Hours Test 01/27/18 05:29 01/27/18 11:13 White Blood Count 6.06 K/uL Red Blood Count 4.10 M/uL Hemoglobin 9.7 g/dL Hematocrit 30.5 % Mean Corpuscular Volume 74.4 fL Mean Corpuscular Hemoglobin 23.7 pg Mean Corpuscular Hemoglobin Concent 31.8 g/dl Platelet Count 382 K/uL Mean Platelet Volume 8.5 fL Neutrophils (%) (Auto) 61.7 % Lymphocytes (%) (Auto) 23.8 % Monocytes (%) (Auto) 11.2 % Eosinophils (%) (Auto) 2.8 % Basophils (%) (Auto) 0.3 % Neutrophils # (Auto) 3.74 K/uL Lymphocytes # (Auto) 1.44 K/uL Monocytes # (Auto) 0.68 K/uL Eosinophils # (Auto) 0.17 K/uL Basophils # (Auto) 0.02 K/uL RDW Standard Deviation 48.7 fL RDW Coefficient of Variation 18.0 % Immature Granulocyte % (Auto) 0.2 % Immature Granulocyte # (Auto) 0.01 K/uL Prothrombin Time 11.4 SECONDS Prothromb Time International Ratio 1.1 Sodium Level 139 mmol/L Potassium Level 2.9 mmol/L 3.3 mmol/L Chloride Level 104 mmol/L Carbon Dioxide Level 26 mmol/L Anion Gap 9.0 mmol/L Blood Urea Nitrogen 7 mg/dl Creatinine 0.66 mg/dl Est Creatinine Clear Calc Drug Dose 79.5 ml/min Estimated GFR () 107.4 Estimated GFR (Non- 92.7 BUN/Creatinine Ratio 9.9 Random Glucose 85 mg/dl Calcium Level 8.1 mg/dl Magnesium Level 1.9 mg/dl Assessment and Plan 67 year old female with anemia, negative EGD NPO for colonoscopy today Additional recommendations pending results of colonoscopy
--- NOTE | 2018-01-27 14:31 | Anesthesiology Progress Note ---
Anesthesia Post Op Note Date & Time Jan 27, 2018 at 14:31 Vital Signs Pain Intensity: 0 Vital Signs Past 12 Hours Date Time Temp Pulse Resp B/P (MAP) Pulse Ox O2 Delivery O2 Flow Rate FiO2 01/27/18 14:05 85 20 155/107 (123) 97 Room Air 01/27/18 13:48 86 18 155/87 (109) 95 Room Air 01/27/18 13:32 36.8 78 18 124/72 (89) 98 Room Air 01/27/18 12:45 36.9 82 18 159/90 (113) 97 Room Air 01/27/18 12:00 Room Air 01/27/18 11:25 36.6 77 18 155/93 (113) 99 Room Air 01/27/18 08:00 Room Air 01/27/18 07:47 37.3 93 18 164/81 (108) 96 Room Air 01/27/18 04:00 Room Air 01/27/18 03:54 37.1 93 18 142/81 (101) 95 Room Air Notes Mental Status: alert / awake / arousable, participated in evaluation Pt Amnestic to Procedure: Yes Nausea / Vomiting: adequately controlled Pain: adequately controlled Airway Patency, RR, SpO2: stable & adequate BP & HR: stable & adequate Hydration State: stable & adequate Anesthetic Complications: no major complications apparent
[2018-01-27 14:36] VITALS: BP 158/95; PULSE 95; TEMP 36.9; O2SAT 99
[2018-01-27 16:33] VITALS: BP 130/90; PULSE 94; TEMP 36.9; O2SAT 92
[2018-01-27] MEDS ORDERED: PANT40TA PO (17:02)
--- NOTE | 2018-01-27 17:04 | Discharge Instructions ---
Discharge Instructions Date of Service Jan 27, 2018. Admission Reason for Admission: Anemia, Hypotension Discharge Discharge Diagnosis / Problem: ANEMIA, HYPOTENSION, GI BLEED Discharge Goals Goal(s): Decrease discomfort, Improve function Activity Recommendations Activity Limitations: resume your previous activity . Instructions / Follow-Up Instructions / Follow-Up FOLLOWUP WITH FAMILY DOCTOR ON January AT 1:15PM AVOID NSAID'S LIKE IBUPROFEN, ALEVE, MOTRIN NAPROSYN THEY CAN CAUSE GASTRIC ULCERS RENAL FAILURES AND HEART ATTACKS ON PROLONG USE. CAN TAKE ASPIRIN IF INDICATED FOR HEART DISEASE OR RECOMMENDED BY FAMILY DOCTOR. Current Hospital Diet Patient's current hospital diet: Regular Diet Discharge Diet Recommended Diet: AHA Diet (Heart Healthy) Procedures Procedures Performed: COLONOSCOPY WITH POLYPECTOMY EGD Pending Studies Studies pending at discharge: no Medical Emergencies . Who to Call and When: Medical Emergencies: If at any time you feel your situation is an emergency, please call 911 immediately. . Non-Emergent Contact Non-Emergency issues call your: Primary Care Provider . . "Provider Documentation" section prepared by Onur Goyal. .
[2018-01-27 17:11] VITALS: BP 130/90; PULSE 94; TEMP 36.9; O2SAT 92
--- NOTE | 2018-01-27 18:02 | Progress Note ---
Internal Med Progress Note Date of Service: Jan 27, 2018. Provider Documentation: SUBJECTIVE: s/p colonoscopy today eating post colonoscopy no nausea or abdominal pain no sob afebrile wants to be discharged OBJECTIVE: Vital Signs-as noted below Exam: General-alert and Oriented. Not in distress. ENT-normal hearing Neck-no neck masses Lungs-cta b/l no wheezing or crackles Heart-s1 and s2 heard regular no murmurs Abdomen-soft bowel sounds present non tender no distension Extremities-no erythema Neuro-alert and awake moves extremities Lab data as noted below. ASSESSMENT & PLAN: SYMPTOMATIC ANEMIA WITH HYPOTENSION SUSPECTED UPPER GI BLEED - ACUTE BLOOD LOSS ANEMIA presented with hypotension and hb 7.2 Heme positive stool on Coumadin and inr 2.0 on presentation started on Protonix drip holding ASA, Coumadin, prednisone, doxycycline received 3units of prbc and hb 9.7 on day of discharge s/p egd showing gastritis s/p colonoscopy and polypectomy. stopped aspirin 325mg at discharge which patient takes for arthritis PALPITATIONS EKG: NSR today.improved HX PE ON COUMADIN INR: 2.0.received vitamin k inr 1.4 today restarted Coumadin on discharge f/u with coumadin clinic CHRONIC L ANKLE WOUND AND HX OSTEOMYELITIS doxycycline on hold 'ID ok with holding abx and recommends f/u as out patinet restarted at discharge ELEVATED LACTIC ACID: Lactic acid: 3.2. Procalcitonin ordered and was WNL. do not suspect sepsis at this time. repeat lactic acid normalized MS Pt with intrathecal baclofen pump. Symptoms at baseline currently holding prednisone currently To continue copaxone, zanaflex, ampyra stable DEPRESSION On Lexapro HX L BREAST CA S/P SURGERY discharged home Vital Signs: Date Time Temp Pulse Resp B/P (MAP) Pulse Ox O2 Delivery O2 Flow Rate FiO2 01/27/18 17:11 36.9 94 16 92 Room Air 01/27/18 16:33 36.9 94 16 130/90 (103) 92 Room Air 01/27/18 16:01 Room Air 01/27/18 14:36 36.9 95 18 158/95 (116) 99 Room Air 01/27/18 14:05 85 20 155/107 (123) 97 Room Air 01/27/18 13:48 86 18 155/87 (109) 95 Room Air 01/27/18 13:32 36.8 78 18 124/72 (89) 98 Room Air 01/27/18 12:45 36.9 82 18 159/90 (113) 97 Room Air 01/27/18 12:00 Room Air 01/27/18 11:25 36.6 77 18 155/93 (113) 99 Room Air 01/27/18 08:00 Room Air 01/27/18 07:47 37.3 93 18 164/81 (108) 96 Room Air 01/27/18 04:00 Room Air 01/27/18 03:54 37.1 93 18 142/81 (101) 95 Room Air 01/27/18 00:00 Room Air 01/26/18 23:25 36.8 78 18 153/87 (109) 100 Room Air 01/26/18 20:49 36.4 71 18 109/88 (95) 96 Room Air 01/26/18 20:00 Room Air Lab Results: Results Past 24 Hours Test 01/27/18 05:29 01/27/18 11:13 01/27/18 15:16 Range/Units White Blood Count 6.06 4.8-10.8 K/uL Red Blood Count 4.10 4.2-5.4 M/uL Hemoglobin 9.7 12.0-16.0 g/dL Hematocrit 30.5 37-47 % Mean Corpuscular Volume 74.4 80-100 fL Mean Corpuscular Hemoglobin 23.7 25-34 pg Mean Corpuscular Hemoglobin Concent 31.8 32-36 g/dl Platelet Count 382 130-400 K/uL Mean Platelet Volume 8.5 7.4-10.4 fL Neutrophils (%) (Auto) 61.7 % Lymphocytes (%) (Auto) 23.8 % Monocytes (%) (Auto) 11.2 % Eosinophils (%) (Auto) 2.8 % Basophils (%) (Auto) 0.3 % Neutrophils # (Auto) 3.74 1.4-6.5 K/uL Lymphocytes # (Auto) 1.44 1.2-3.4 K/uL Monocytes # (Auto) 0.68 0.11-0.59 K/uL Eosinophils # (Auto) 0.17 0-0.5 K/uL Basophils # (Auto) 0.02 0-0.2 K/uL RDW Standard Deviation 48.7 36.4-46.3 fL RDW Coefficient of Variation 18.0 11.5-14.5 % Immature Granulocyte % (Auto) 0.2 % Immature Granulocyte # (Auto) 0.01 0.00-0.02 K/uL Prothrombin Time 11.4 9.0-12.0 SECONDS Prothromb Time International Ratio 1.1 0.9-1.1 Sodium Level 139 136-145 mmol/L Potassium Level 2.9 3.3 4.4 3.5-5.1 mmol/L Chloride Level 104 98-107 mmol/L Carbon Dioxide Level 26 21-32 mmol/L Anion Gap 9.0 3-11 mmol/L Blood Urea Nitrogen 7 7-18 mg/dl Creatinine 0.66 0.60-1.20 mg/dl Est Creatinine Clear Calc Drug Dose 79.5 ml/min Estimated GFR () 107.4 Estimated GFR (Non- 92.7 BUN/Creatinine Ratio 9.9 10-20 Random Glucose 85 70-99 mg/dl Calcium Level 8.1 8.5-10.1 mg/dl Magnesium Level 1.9 1.8-2.4 mg/dl
--- NOTE | 2018-01-27 19:35 | Discharge Summary ---
Discharge Summary Date of Service Jan 27, 2018. Discharge Summary Admission Date: Jan 24, 2018 at 16:20 Discharge Date: Jan 27, 2018 Discharge Disposition: Home Principal Diagnosis: GI BLEED ACUTE BLOOD LOSS ANEMIA Secondary Diagnoses/Problems: (1) Breast cancer Status: Chronic (2) DVT (deep venous thrombosis) Status: Chronic (3) Multiple sclerosis Status: Chronic (4) Neurogenic bladder Status: Chronic (5) Osteoporosis Status: Chronic (6) Pulmonary embolism Status: Resolved (7) Raynaud disease Status: Chronic (8) Swelling of left elbow Status: Resolved Procedures: HEAD CT: No acute intracranial findings CXR: No acute process within the chest. No change in the small hiatus hernia. S/P EGD S/P COLONOSCOPY Consultations: GI Medication Reconciliation New Medications: Pantoprazole (Protonix) 40 Mg Tab 40 MG PO DAILY, #30 TAB 1 Refill Continued Medications: Cholecalciferol (Vitamin D 1000 Unit) 1,000 Unit Cap 1000 INTER.UNIT PO QAM, CAP Dalfampridine (Ampyra) 10 Mg Tab 1 TAB PO DAILY Doxycycline Hyclate (Doxycycline Hyclate) 50 Mg Cap 1 CAP PO Q2D Escitalopram Oxalate (Lexapro) 20 Mg Tab 20 MG PO QAM Glatiramer Acetate (Copaxone) 40 Mg/Ml Inj 1 ML SC UD Three times a week - Mon, Wed, Fri Multivitamins/Minerals (Mvi With Minerals) Tab 1 TAB PO DAILY, TAB Oxybutynin Chloride (Ditropan Xl) 15 Mg Tab 1 TAB PO QAM Prednisone (Prednisone) 10 Mg Tab 10 MG PO QAM, TAB Risedronate Sodium (Actonel) 150 Mg Tab 1 TAB PO MONTHLY for 30 Days, #1 TAB 11 Refills Tizanidine (Zanaflex ) 4 Mg Tab 4 MG PO QID Warfarin Sodium (Warfarin Sodium) 5 Mg Tab 5 MG PO QPM Discontinued Medications: Aspirin (Aspirin) 325 Mg Tab 1 TAB PO DAILY for Pain Admission Information HPI (per Admitting provider): Pt is 67 y/o F with PMH MS on chronic prednisone, Hx PE on chronic Coumadin presented to ER with c/o lightheadedness. Pt reports today was at [employer] [facility] when she became lightheaded and her friend noticed that she looked pale. Symptoms persisted for approx 15 minutes and EMS was called. Pt states had mild aching frontal head which resolved. Denies any syncope. Pt does report that for approx one month has been having sensation that heart is skipping a beat. This lasts for a couple of seconds and can occur with sitting or standing or with exertion. Denies feeling SOB. Has noticed intermittent lightheadedness past month also, unsure if it occurs with palpitations. Followed with PCP for palpitations and pt reports is to have monitor placed next month to r/o arrhythmia. Of note pt had CBC on 01/20/18 and Hgb: 7.1 then. Denies any head injury. Reports INRs have been in therapeutic range. Denies any epistaxis, melena, hematochezia. Reports some intermittent heartburn over past couple of months, doesn't have to taken anything for it. Reports was using 325mg ASA daily for arthritis pain to knees however reports for greater than a month has been taking three tabs of 325mg ASA in morning and 3 tabs in the evening. Hx chronic osteomyelitis of left ankle and chronic wound lateral ankle. She follows with Dr Liz and is on doxycycline 50mg every other day and was receiving dalbavancin for MSSA and corynebacterium to L ankle wound. Was following with [facility] wound clinic, d/c in 10/2017. pt reports wound appears to be healing and has not re-opened. She does report hit left resendez on walker and has skin tear, thinks this happened 1-2 weeks ago. Denies discharge from area. Has intrathecal baclofen pump or intractable spasticity bilateral LE secondary to MS. Had refilled on 12/28/17 - [facility]. On Prednisone 10mg daily for control of MS. Follows with Dr Walker. Reports chronic extremity edema with prolonged sitting, right leg worse than left, she sometimes uses danny hose to right leg which seems to help. Denies increased edema or increased LE pain/spasms/weakness. Uses walker and sometimes a wheelchair.Denies fever/chills, diaphoresis, N/V/D/C, syncope, vision changes, neck pain, CP, orthopnea, cough, sore throat, choking, otalgia, rhinorrhea, abdominal pain, urinary symptoms. In ER pt arrived hypotensive at 78/52, responded well to 1L NSS and BP up to 140 's/90. Hemoccult positive with brown color stool. Hgb: 7.2. INR: 2.0 Physical Exam (per Admitting): General Appearance: WD/WN, no apparent distress Head: normocephalic, atraumatic Eyes: normal inspection, PERRL, EOMI, sclerae normal, + pertinent finding ( pale conjunctiva) ENT: hearing grossly normal, pharynx normal, + pertinent finding (mucous membranes moist) Neck: supple, trachea midline Respiratory/Chest: lungs clear, normal breath sounds, no respiratory distress, no accessory muscle use Cardiovascular: regular rate, rhythm, no murmur, normal peripheral pulses Abdomen/GI: normal bowel sounds, non tender, soft Extremities/Musculoskelatal: no calf tenderness, normal capillary refill, non-tender, + pertinent finding (ROM extremities intact. no significant edema LE noted) Neurologic/Psych: alert, normal mood/affect, oriented x 3 Skin: + pertinent finding (left lateral ankle with closed scab without surrounding erythema or edema, left anterior skin with skin tear with slight erythema around edges, no discharge or bleeding, no other rashes noted) Hospital Course SYMPTOMATIC ANEMIA WITH HYPOTENSION SUSPECTED UPPER GI BLEED - ACUTE BLOOD LOSS ANEMIA presented with hypotension and hb 7.2 Heme positive stool on Coumadin and inr 2.0 on presentation started on Protonix drip holding ASA, Coumadin, prednisone, doxycycline received 3units of prbc and hb 9.7 on day of discharge s/p egd showing gastritis s/p colonoscopy and polypectomy. stopped aspirin 325mg at discharge which patient takes for arthritis PALPITATIONS EKG: NSR today.improved HX PE ON COUMADIN INR: 2.0.received vitamin k inr 1.4 today restarted Coumadin on discharge f/u with coumadin clinic CHRONIC L ANKLE WOUND AND HX OSTEOMYELITIS doxycycline on hold 'ID ok with holding abx and recommends f/u as out patinet restarted at discharge ELEVATED LACTIC ACID: Lactic acid: 3.2. Procalcitonin ordered and was WNL. do not suspect sepsis at this time. repeat lactic acid normalized MS Pt with intrathecal baclofen pump. Symptoms at baseline currently holding prednisone currently To continue copaxone, zanaflex, ampyra stable DEPRESSION On Lexapro HX L BREAST CA S/P SURGERY discharged home Total time spent on discharge = 35MINUTES This includes examination of the patient, discharge planning, medication reconciliation, and communication with other providers. Discharge Instructions Discharge Instructions Date of Service Jan 27, 2018. Admission Reason for Admission: Anemia, Hypotension Discharge Discharge Diagnosis / Problem: ANEMIA, HYPOTENSION, GI BLEED Discharge Goals Goal(s): Decrease discomfort, Improve function Activity Recommendations Activity Limitations: resume your previous activity . Instructions / Follow-Up Instructions / Follow-Up FOLLOWUP WITH FAMILY DOCTOR ON January AT 1:15PM AVOID NSAID'S LIKE IBUPROFEN, ALEVE, MOTRIN NAPROSYN THEY CAN CAUSE GASTRIC ULCERS RENAL FAILURES AND HEART ATTACKS ON PROLONG USE. CAN TAKE ASPIRIN IF INDICATED FOR HEART DISEASE OR RECOMMENDED BY FAMILY DOCTOR. Current Hospital Diet Patient's current hospital diet: Regular Diet Discharge Diet Recommended Diet: AHA Diet (Heart Healthy) Procedures Procedures Performed: COLONOSCOPY WITH POLYPECTOMY EGD Pending Studies Studies pending at discharge: no Medical Emergencies . Who to Call and When: Medical Emergencies: If at any time you feel your situation is an emergency, please call 911 immediately. . Non-Emergent Contact Non-Emergency issues call your: Primary Care Provider . . "Provider Documentation" section prepared by Onur Goyal.
--- NOTE | 2018-01-31 09:09 | EDITING REQUIRED CODING QUERY ---
CODING QUERY To promote full compliance with coding requirements relating to patient care, provider participation is requested in all cases of pinner printed circuit boards uncertainty. Please assist us with the question(s) below: Coding Question(s): Patient admitted with hypotension. EGD negative except for gastritis. Colonoscopy reveals ascending colon polyp that was excised. Patient with UGI bleed. Please document, if known or suspected, the etiology of the UGI bleed. Thanks for your help! Ole Stark [facility] Physician's Response(s): Principal Diagnosis: "_that condition established after study, to be chiefly responsible for occasioning the admission of the patient to the hospital for care." Co-Existing Principal Diagnosis: "_when two or more diagnoses equally meet the criteria for principal diagnosis as determined by the circumstances of admission, diagnostic work up, and/or therapy provided, and the Alphabetic Index, Tabular List, or another coding guideline does not provide sequencing direction, any one of the diagnoses may be sequenced first." "When the physician has documented what appears to be a current diagnosis in the body of the record, but has not included the diagnosis in the final diagnostic statement, the physician should be asked whether the diagnosis should be added." (Source Coding [facility] 2 QTR90. p3-4)
== END 2018-01-27 18:18 | disposition home or self-care (01) | DRG 378 ==
LOC: EDBD 13:10 → C.EDA 13:13 → C.2T 16:20 → ENRESERV 16:48 → CANRESERV 16:48 → ENRESERV 18:16
PROVIDERS: ADMIT Hospitalist; ATTEND Internal Medicine
PROC: 0DB68ZX Excision of Stomach, Via Natural or Artificial Opening Endoscopic, Diagnostic (ICD-10-PCS; principal; 2018-01-25 09:17)
PROC: 0DB98ZX Excision of Duodenum, Via Natural or Artificial Opening Endoscopic, Diagnostic (ICD-10-PCS; principal; 2018-01-25 09:17)
PROC: 0DJD8ZZ Inspection of Lower Intestinal Tract, Via Natural or Artificial Opening Endoscopic (ICD-10-PCS; 2018-01-26)
PROC: 0DBK8ZX Excision of Ascending Colon, Via Natural or Artificial Opening Endoscopic, Diagnostic (ICD-10-PCS; 2018-01-27)
DX: K92.2 Gastrointestinal hemorrhage, unspecified (principal); D62 Acute posthemorrhagic anemia; G35 Multiple sclerosis; N31.9 Neuromuscular dysfunction of bladder, unspecified; Z90.12 Acquired absence of left breast and nipple; I95.9 Hypotension, unspecified; S91.002A Unspecified open wound, left ankle, initial encounter; Z82.49 Family history of ischemic heart disease and other diseases of the circulatory system; D12.2 Benign neoplasm of ascending colon; Z80.8 Family history of malignant neoplasm of other organs or systems; F32.9 Major depressive disorder, single episode, unspecified; Z87.891 Personal history of nicotine dependence; I73.00 Raynaud's syndrome without gangrene; Z79.82 Long term (current) use of aspirin; Z86.718 Personal history of other venous thrombosis and embolism; Z79.52 Long term (current) use of systemic steroids; Z79.01 Long term (current) use of anticoagulants; X58.XXXA Exposure to other specified factors, initial encounter; Y92.009 Unspecified place in unspecified non-institutional (private) residence as the place of occurrence of the external cause; Z86.19 Personal history of other infectious and parasitic diseases; Z86.711 Personal history of pulmonary embolism; Z85.3 Personal history of malignant neoplasm of breast

== ENCOUNTER → 2018-02-17 | Outpatient (CLI) | payer OTHER, BC ==
[~2018-02-17] MED LIST changes: -BACLOFEN PUMP; -CPXI SQ; +DXY50 PO; +GADAVIST IV PRN; +GLAT1INJ SC; +PANT40TA PO
--- NOTE | 2018-02-17 14:32 | DIAGNOSTIC IMAGING REPORT ---
L LOWER EXT JOINT COMBO HISTORY: 67 years-old Female L97.929 Ulcer of leg, chronic, leftLeft [id number] chronic soft tissue wound with ulcer of the lateral malleolus. Clinical concern for possible osteomyelitis. COMPARISON: MRI 03/17/2017 TECHNIQUE: Multiplanar multisequence MRI of the left hindfoot was obtained both with and without the use of 7 mL Gadavist FINDINGS: [employer] localizer images demonstrate no gross abnormality. There is a 10 x 10 mm osteochondral defect of the medial talar dome with fluid signal tracking beneath the osteochondral defect nicely seen on image 9 of series 5 compatible with unstable fragment. Moderate associated subcortical cystic changes within the talus. Mild joint space narrowing with marginal spurring about the tibiotalar joint. Mild marginal spurring with joint space narrowing and chondral thinning is noted about the midfoot and subtalar joint. No acute fracture. Mild nonspecific bone marrow edema involves the superior process of the posterior calcaneus, possibly reactive. There is mild bone marrow edema involving the lateral malleolus, most pronounced along its inferior lateral margin nicely seen on image 22 series 8 with mild associated periostitis seen best on the axial images. These findings appear stable from comparison study 03/17/2017. Additionally, there is moderate skin thickening superficial to this region with a 1.1 cm linear fluid-filled tract extending towards the peroneal tendons, image 24 series 10. Mild enhancement within this distribution. No drainable fluid collections. No evidence of osteomyelitis. No erosive changes of the bone identified. Mild nonspecific subcutaneous edema circumferentially about the ankle and dorsal foot. Small tibiotalar and subtalar joint effusions with mild fluid seen within the posterior recess about the ankle. Trace fluid within the retrocalcaneal bursa. Mild tenosynovitis of the tibialis posterior. The flexor and extensor tendons appear intact. The Achilles tendon is intact and within normal limits. There is mild thickening of the medial cord plantar fascia with mild surrounding stranding compatible with acute on chronic plantar fasciitis. Small plantar enthesophyte. Dorsal band of the Lisfranc ligament is identified and appears intact. The ATFL appears attenuated suggesting chronic sprain. Calcaneal fibular ligament and posterior talofibular ligaments appear intact. Deltoid ligament appears intact. Syndesmotic ligaments also appear intact. IMPRESSION: 1. There is unchanged mild cellulitis adjacent to the lateral malleolus with a 1.1 cm fluid filled tract extending from a skin ulcer towards the peroneal tendons. No evidence of peroneal tenosynovitis. 2. Mild bone marrow edema and periostitis of the lateral malleolus also appears unchanged. No evidence of osteomyelitis at this time. 3. 10 x 10 mm osteochondral defect of the medial talar dome with unstable fragment as above. 4. Acute on chronic plantar fasciitis. 5. Small tibiotalar and subtalar joint effusions. The above report was generated using voice recognition software. It may contain grammatical, syntax or spelling errors. Electronically signed by: René Mccauley M.D. 02/17/2018 2:31 PM Dictated Date/Time: 02/17/2018 2:16 PM
== END | disposition home or self-care (01) ==
LOC: C.MRIBC 12:24
PROVIDERS: ATTEND Internal Medicine Infectious Disease
DX: L97.929 Non-pressure chronic ulcer of unspecified part of left lower leg with unspecified severity (principal); M72.2 Plantar fascial fibromatosis

== ENCOUNTER → 2018-04-12 | Outpatient (CLI) | payer OTHER, BC ==
[~2018-04-12] MED LIST changes: +FERR1TAB62 PO
--- NOTE | 2018-04-12 14:19 | DIAGNOSTIC IMAGING REPORT ---
BRAIN COMBO FOR MS HISTORY: 67 years-old Female MS follow-up study in a patient with history of multiple sclerosis. No acute symptoms are reported. COMPARISON: CT head 01/24/2018. No prior brain MRIs available for comparison at time of dictation. TECHNIQUE: Multiplanar multisequence MRI of the brain was obtained both with and without the use of 6.5 mL Gadavist FINDINGS: Diffusion-weighted sequence images are motion degraded. There is no restricted diffusion to suggest acute or subacute infarction. Insulation Nozzleman localizer images demonstrate no gross abnormality. The midline structures including the corpus callosum, brainstem, optic chiasm, pituitary and pineal glands are unremarkable on the sagittal T1 series. No cerebellar tonsillar herniation. Mild cerebral volume loss. No acute intracranial hemorrhage, midline shift, abnormal extra-axial collections, hydrocephalus or intracranial mass. Moderate degree of multifocal T2/FLAIR hyperintensities are seen within the periventricular white matter and to lesser extent within the subcortical white matter of the cerebral hemispheres bilaterally. The periventricular foci are oriented in a perpendicular orientation to the corpus callosum. No infratentorial foci identified. The imaged brainstem and cervical spine appear unremarkable. There is no abnormal intra-axial or extra-axial enhancement identified. Flow voids at the level of the skull base appear patent. Prior bilateral cataract repair. Mastoid air cells are clear. Paranasal sinuses are also generally clear. Soft tissues and skull appear unremarkable. IMPRESSION: 1. No acute intracranial abnormality identified. 2. Moderate degree of multifocal T2/FLAIR hyperintensities within the periventricular white matter and to a lesser extent within the subcortical white matter of the cerebral hemispheres bilaterally is compatible with patient's clinical diagnosis of multiple sclerosis with demyelinating plaques. No infratentorial foci identified. No abnormal enhancement to suggest active demyelination. The above report was generated using voice recognition software. It may contain grammatical, syntax or spelling errors. Electronically signed by: René Mccauley M.D. 04/12/2018 2:18 PM Dictated Date/Time: 04/12/2018 2:08 PM
== END | disposition home or self-care (01) ==
LOC: C.MRIBC 12:54
PROVIDERS: ATTEND Physical Medicine & Rehabilitation Spinal Cord Injury Medicine
DX: G35 Multiple sclerosis (principal)

== ENCOUNTER 2020-04-29 13:24 | Inpatient (IN) ==
[2020-04-29] MEDS ORDERED: SODIUM CHLORIDE 0.9% 500 ML IV ONE (14:39)
--- NOTE | 2020-04-29 14:50 | Emergency Department Note ---
Impression & Plan Acute upper gastrointestinal bleeding, Anemia, Weakness, Urinary tract infection, Elevated INR ED Provider Note NAME: NADEEN ANNE AGE: 69 SEX: F : 1950 ARRIVES VIA: Ambulance INFORMANT: Patient, ED PROVIDER(S): Louis Vieira DO CHIEF COMPLAINT: Chest pain HPI: The patient is a 69-year-old female who presented to the emergency department by ambulance for an episode of chest pain. The patient states that this morning she was not feeling herself. She describes chest pain which was sharp in nature. She also had an episode of a loose bowel movement and felt that her arms were both going numb. The patient denies that she was hyperventilating or anxious. She was very concerned about the symptoms. She called to have a primary care physician visit but was unable to get an appointment today. She called 911 because she was concerned about the chest pain. The patient states that she has not had similar symptoms in the past. She does have a history of DVT but denies any worsening lower extremity pain swelling or noncompliance with her oral anticoagulation. Currently she has no symptoms. She denies at this time having any chest pain or shortness of breath. She denies having any nausea or vomiting. She denies having any recent traveling. She denies have any cough or recent exposure to COVID-19. ROS: See above HPI for pertinent positives & negatives. A total of 10 systems reviewed and were otherwise negative. PAST MEDICAL HISTORY: See Below PAST SURGICAL HISTORY: See Below FAMILY HISTORY: See Below SOCIAL HISTORY: See Below HOME MEDICATIONS: See Below ALLERGIES: See Below VITALS: See Below PHYSICAL EXAMINATION: GENERAL: Patient is awake alert in no acute distress patient is resting comfortably and showing no signs of anxiety EYES: The conjunctivae are clear. The pupils are round and reactive. EARS, NOSE, MOUTH AND THROAT: The nose is without any evidence of any deformity. Mucous membranes are moist. Tongue is midline. NECK: The neck is nontender and supple. RESPIRATORY: Normal respiratory effort is noted there is no evidence of wheezing rhonchi or rales CARDIOVASCULAR: Regular rate and rhythm noted. There was a systolic murmur noted to auscultation. GASTROINTESTINAL: The abdomen is soft. Abdomen is nontender. Rectal exam revealed black stool which was strongly heme positive. MUSCULOSKELETAL/EXTREMITIES: There is no evidence of gross deformity full range of motion is noted in the hips and shoulders. SKIN: There is no obvious evidence of any rash. Pedal edema was noted bilaterally. NEUROLOGIC: Patient is awake alert and oriented x3. Facial droop was absent. Tests Superintendent strength was symmetric. MEDICAL DECISION MAKING: The patient is a 69-year-old female who presented to the emergency department for an evaluation of chest pain. The patient was chest pain-free upon arrival to the emergency department. She offers no complaints upon arrival to the emergency department and felt much better. She does have a history of frequent urinary tract infections. She does take blood thinners. I discussed the patient's laboratory and radiographic studies with her. On physical exam she was found to have dark stool which was heme positive. The patient was treated with blood transfusion in the emergency department. She was reevaluated multiple times. She was also started on IV antibiotics for presumed urinary tract infection. I discussed the patient's condition with the on-call [facility] group. They have agreed to evaluate the patient in the emergency department for further management disposition. I also discussed the patient's condition with her daughter. She was very concerned about her mother's back pain. The patient did complain of back pain but had no back pain on my e valuation. For this reason CT of the abdomen and pelvis was obtained. Triage Nursing notes reviewed. Prior medical records reviewed Vital Signs: reviewed and remarkable for elevated blood pressure. Differential diagnosis: Cardiac ischemia, aortic dissection, pulmonary embolism, pneumothorax, pneumonia, pericarditis, myocarditis, esophageal rupture, GERD, cholecystitis, pancreatitis, musculoskeletal, as well as other pathologies. ER treatment provided: See below Diagnostics interpreted by me: ECG: EKG was obtained in the emergency department. My interpretation is sinus rhythm at 88 bpm. There is no acute ST segment abnormalities noted. PAC was noted. This was compared to a tracing from January 26, 2018. No significant changes were noted. Cardiac Monitoring: An order was placed for continuous cardiac monitoring. The monitor shows a rate of 88 with sinus rhythm. Laboratory studies: As stated above and show below. Imaging studies: See below Consultation(s): 1640: I discussed this case with Dr. Luz who is on-call for the [facility] hospitalist group. They have agreed to evaluate the patient in the emergency department for further management and disposition. ED COURSE: Procedures: none Critical Care: I have personally spent greater than 65 minutes of critical care time in the direct management of this patient. This includes bedside care, interpretation of diagnostic studies, and testing, discussion with consultants, patient, and family members, and other required patient management activities. This 65 minutes is in excess of all separately billable procedures. Past Med/Surg History Medical History Breast cancer (Resolved) DVT (deep venous thrombosis) (Chronic) Multiple sclerosis (Chronic) Neurogenic bladder (Chronic) Osteoporosis (Chronic) Pulmonary embolism (Resolved) Raynaud disease (Chronic) Surgical History H/O left mastectomy (Chronic) History of appendectomy (Chronic) History of open reduction and internal fixation (ORIF) procedure (Chronic) "left hip" Presence of intrathecal pump (Chronic) S/P IVC filter (Chronic) S/P partial hysterectomy (Chronic) Social History Preferred Language: Wolof Communication Ability: Effective Visual Impairment: No Limitations Hearing Ability: Normal Data Security Coordinator Required: No Beliefs That Will Affect Care: None marital status: Single Current Living Situation: Alone current occupational status: retired Feels Safe at Home: Yes Smoking Status: Never smoker Tobacco Type: cigarettes ; packs per day: 1 ; Second Hand Exposure: Yes ; Hx Alcohol Use: Yes (occassionally) Alcohol type: wine Alcohol Intake Frequency: Holidays/Special Occasions Hx Substance Use: No Childhood Exposure to Second-Hand Smoke: Yes Allergies Allergies Allergy/AdvReac Type Severity Reaction Status Date / Time No Known Allergies Allergy Verified 04/29/20 16:50 Home Meds Home Medications Medication Instructions Recorded Confirmed cholecalciferol (vitamin D3) 25 1,000 units PO QAM 09/18/18 04/29/20 mcg (1,000 unit) capsule escitalopram oxalate 20 mg tablet 20 mg PO QAM tab 09/18/18 04/29/20 oxybutynin chloride 15 mg 15 mg PO QAM 09/18/18 04/29/20 tablet,extended release 24 hr prednisone 10 mg tablet 10 mg PO QAM 09/18/18 04/29/20 warfarin 5 mg tablet 7.5 mg PO DAILY@1600 09/18/18 04/29/20 teriflunomide 7 mg tablet 14 mg PO DAILY@1600 tab 09/12/19 04/29/20 tizanidine 4 mg capsule 4 mg PO QID cap 09/12/19 04/29/20 doxycycline monohydrate 100 mg PO Q2D@2200 04/29/20 04/29/20 ibuprofen 200 mg PO Q6H PRN 04/29/20 04/29/20 Results & Data (ED) Vital Signs Vital Signs - 24 hr 04/29/20 13:30 04/29/20 13:32 04/29/20 13:34 Temperature 36.5 C Temperature Source Oral Pulse Rate 83 85 90 Pulse Rate [Right Finger] Pulse Rate from SpO2 Sensor 82 90 Respiratory Rate 24 14 16 Blood Pressure 126/68 126/68 Blood Pressure [Right Arm] Blood Pressure Mean 87 90 Blood Pressure Mean [Right Arm] Pulse Oximetry 100 100 97 Sepsis Recent Fever Within 48 Hours No Sepsis New/Unexplained Change in Mental Status No Sepsis Action Taken by Nursing No Action Required 04/29/20 14:00 04/29/20 14:30 04/29/20 15:00 Temperature Temperature Source Pulse Rate 89 87 93 H Pulse Rate [Right Finger] Pulse Rate from SpO2 Sensor Respiratory Rate 13 24 23 Blood Pressure 129/86 Blood Pressure [Right Arm] Blood Pressure Mean 100 Blood Pressure Mean [Right Arm] Pulse Oximetry Sepsis Recent Fever Within 48 Hours Sepsis New/Unexplained Change in Mental Status Sepsis Action Taken by Nursing 04/29/20 15:10 04/29/20 15:13 04/29/20 15:20 Temperature Temperature Source Pulse Rate 94 H 96 H 100 H Pulse Rate [Right Finger] Pulse Rate from SpO2 Sensor 93 H Respiratory Rate 24 21 15 Blood Pressure 129/86 Blood Pressure [Right Arm] Blood Pressure Mean 91 Blood Pressure Mean [Right Arm] Pulse Oximetry 100 Sepsis Recent Fever Within 48 Hours Sepsis New/Unexplained Change in Mental Status Sepsis Action Taken by Nursing 04/29/20 15:30 04/29/20 15:40 04/29/20 15:50 Temperature Temperature Source Pulse Rate 90 97 H 98 H Pulse Rate [Right Finger] Pulse Rate from SpO2 Sensor 91 H 90 90 Respiratory Rate 19 15 21 Blood Pressure Blood Pressure [Right Arm] Blood Pressure Mean Blood Pressure Mean [Right Arm] Pulse Oximetry 87 L 96 84 L Sepsis Recent Fever Within 48 Hours Sepsis New/Unexplained Change in Mental Status Sepsis Action Taken by Nursing 04/29/20 16:00 04/29/20 16:10 04/29/20 16:20 Temperature Temperature Source Pulse Rate 100 H 97 H 113 H Pulse Rate [Right Finger] Pulse Rate from SpO2 Sensor Respiratory Rate 28 H 22 Blood Pressure Blood Pressure [Right Arm] Blood Pressure Mean Blood Pressure Mean [Right Arm] Pulse Oximetry Sepsis Recent Fever Within 48 Hours Sepsis New/Unexplained Change in Mental Status Sepsis Action Taken by Nursing 04/29/20 16:30 04/29/20 16:40 04/29/20 16:50 Temperature Temperature Source Pulse Rate 106 H 98 H 95 H Pulse Rate [Right Finger] Pulse Rate from SpO2 Sensor 96 H Respiratory Rate 20 15 15 Blood Pressure Blood Pressure [Right Arm] Blood Pressure Mean Blood Pressure Mean [Right Arm] Pulse Oximetry 100 Sepsis Recent Fever Within 48 Hours Sepsis New/Unexplained Change in Mental Status Sepsis Action Taken by Nursing 04/29/20 17:28 04/29/20 17:29 04/29/20 17:30 Temperature Temperature Source Pulse Rate Pulse Rate [Right Finger] 96 H Pulse Rate from SpO2 Sensor 96 H 96 H Respiratory Rate 19 Blood Pressure 147/89 H Blood Pressure [Right Arm] 147/89 H Blood Pressure Mean 102 Blood Pressure Mean [Right Arm] 108 Pulse Oximetry 91 100 Sepsis Recent Fever Within 48 Hours Sepsis New/Unexplained Change in Mental Status Sepsis Action Taken by Nursing 04/29/20 17:31 Temperature Temperature Source Pulse Rate Pulse Rate [Right Finger] Pulse Rate from SpO2 Sensor Respiratory Rate Blood Pressure 137/84 Blood Pressure [Right Arm] Blood Pressure Mean 104 Blood Pressure Mean [Right Arm] Pulse Oximetry Sepsis Recent Fever Within 48 Hours Sepsis New/Unexplained Change in Mental Status Sepsis Action Taken by Long Term Medications Current Medication List: was personally reviewed by me Laboratory Data Attestation: I reviewed the patient's lab results. Result diagrams: 04/29/20 18:35 04/29/20 15:10 Lab Results 04/29/20 04/29/20 04/29/20 Range/Units 15:10 15:10 15:10 WBC 15.33 H (4.8-10.8) K/uL RBC 2.72 L (4.2-5.4) M/uL Hgb 7.2 L (12.0-16.0) g/dL Hct 23.2 L (37-47) % MCV 85.3 (80-100) fL MCH 26.5 (25-34) pg MCHC 31.0 L (32-36) g/dL RDW Std Deviation 53.2 H (36.4-46.3) fL RDW Coeff of Tiffanie 17.4 H (11.5-14.5) % Plt Count 314 (130-400) K/uL MPV 9.3 (7.4-10.4) fL Immature Gran % (Auto) 0.4 % Neut % (Auto) 89.4 % Lymph % (Auto) 6.8 % [place] % (Auto) 3.2 % Eos % (Auto) 0.1 % Baso % (Auto) 0.1 % Immature Gran # (Auto) 0.06 H (0.00-0.02) K/uL Neut # (Auto) 13.71 H (1.4-6.5) K/uL Lymph # (Auto) 1.04 L (1.2-3.4) K/uL [place] # (Auto) 0.49 (0.11-0.59) K/uL Eos # (Auto) 0.01 (0-0.5) K/uL Baso # (Auto) 0.02 (0-0.2) K/uL Absolute Nucleated RBC 0.03 H (0-0) K/uL Nucleated RBC % (auto) 0.2 % Hypochromasia Present PT > 90.0 H (9.0-12.0) Seconds INR > 9.7 H* (0.9-1.1) APTT 57.0 H* (21.0-31.0) Seconds PTT Ratio 2.0 Sodium 140 (136-145) mmol/L Potassium 3.7 (3.5-5.1) mmol/L Chloride 108 H (98-107) mmol/L Carbon Dioxide 24 (21-32) mmol/L Anion Gap 8.0 (3-11) BUN 53 H (7-18) mg/dl Creatinine 0.91 (0.6-1.2) mg/dl Est Cr Clr Drug Dosing 56.5 ml/min Est GFR ( Amer) 75.7 Est GFR (Non-Af Amer) 65.3 BUN/Creatinine Ratio 58.4 H (10-20) Glucose 86 (70-99) mg/dl Calcium 8.6 (8.5-10.1) mg/dl Total Bilirubin 0.3 (0.2-1) mg/dl AST 21 (15-37) U/L ALT 29 (12-78) U/L Alkaline Phosphatase 42 L (45-117) U/L Troponin I < 0.015 (0-0.045) ng/ml Total Protein 5.9 L (6.4-8.2) gm/dl Albumin 3.0 L (3.4-5.0) gm/dl Globulin 2.9 (2.5-4.0) gm/dl Albumin/Globulin Ratio 1.0 (0.9-2) Lipase 153 (73-393) U/L Blood Type Antibody Screen Crossmatch 04/29/20 Range/Units 16:20 WBC (4.8-10.8) K/uL RBC (4.2-5.4) M/uL Hgb (12.0-16.0) g/dL Hct (37-47) % MCV (80-100) fL MCH (25-34) pg MCHC (32-36) g/dL RDW Std Deviation (36.4-46.3) fL RDW Coeff of Tiffanie (11.5-14.5) % Plt Count (130-400) K/uL MPV (7.4-10.4) fL Immature Gran % (Auto) % Neut % (Auto) % Lymph % (Auto) % [place] % (Auto) % Eos % (Auto) % Baso % (Auto) % Immature Gran # (Auto) (0.00-0.02) K/uL Neut # (Auto) (1.4-6.5) K/uL Lymph # (Auto) (1.2-3.4) K/uL [place] # (Auto) (0.11-0.59) K/uL Eos # (Auto) (0-0.5) K/uL Baso # (Auto) (0-0.2) K/uL Absolute Nucleated RBC (0-0) K/uL Nucleated RBC % (auto) % Hypochromasia PT (9.0-12.0) Seconds INR (0.9-1.1) APTT (21.0-31.0) Seconds PTT Ratio Sodium (136-145) mmol/L Potassium (3.5-5.1) mmol/L Chloride (98-107) mmol/L Carbon Dioxide (21-32) mmol/L Anion Gap (3-11) BUN (7-18) mg/dl Creatinine (0.6-1.2) mg/dl Est Cr Clr Drug Dosing ml/min Est GFR ( Amer) Est GFR (Non-Af Amer) BUN/Creatinine Ratio (10-20) Glucose (70-99) mg/dl Calcium (8.5-10.1) mg/dl Total Bilirubin (0.2-1) mg/dl AST (15-37) U/L ALT (12-78) U/L Alkaline Phosphatase (45-117) U/L Troponin I (0-0.045) ng/ml Total Protein (6.4-8.2) gm/dl Albumin (3.4-5.0) gm/dl Globulin (2.5-4.0) gm/dl Albumin/Globulin Ratio (0.9-2) Lipase (73-393) U/L Blood Type A Positive Antibody Screen NEGATIVE Crossmatch See Detail Administered Medications Ioversol (Optiray 320 100ml) 93 ml IV ONCE PRN PRN Reason: Interaction Checking Stop: 05/03/20 17:39 Last Admin: 04/29/20 17:41 Dose: 93 ml Documented by: [id number] Discontinued Medications Sodium Chloride (Nss) 500 mls @ 999 mls/hr IV .Q31M ONE Stop: 04/29/20 15:09 Last Infusion: 04/29/20 15:52 Dose: 0 mls/hr Documented by: [id number] Admin: 04/29/20 15:13 Dose: 999 mls/hr Documented by: [id number] Pantoprazole Sodium 40 mg/ (Syringe) 10 mls @ 5 mls/min IV NOW ONE Stop: 04/29/20 16:34 Last Admin: 04/29/20 17:28 Dose: 5 mls/min Documented by: [id number] Phytonadione 5 mg/ Sodium (Chloride) 50.5 mls @ 101 mls/hr IV ONE ONE Stop: 04/29/20 17:11 Last Infusion: 04/29/20 19:20 Dose: 0 mls/hr Documented by: [id number] Admin: 04/29/20 18:46 Dose: 101 mls/hr Documented by: [id number] Ceftriaxone Sodium (Rocephin) 1,000 mg in 50 mls @ 100 mls/hr IV NOW STA Stop: 04/29/20 18:47 Last Infusion: 04/29/20 19:21 Dose: 0 mls/hr Documented by: [id number] Admin: 04/29/20 18:46 Dose: 100 mls/hr Documented by: [id number] Imaging Data Radiologist's Impression: XR chest 1V portable CLINICAL HISTORY: Chest Pain pain COMPARISON STUDY: 01/24/2018 FINDINGS: Mild stable cardiomegaly. Fixed hiatal hernia. Lungs are considered clear. Slight chronic bibasilar interstitial change. IMPRESSION: Chronic change. No acute process. ACT 112: Negative or not required by law. The above report was generated using voice recognition software. It may contain grammatical, syntax or spelling errors. Electronically signed by: Morales Esparza M.D. 04/29/2020 3:00 PM Dictated: 04/29/20 1459 Transcribed: 04/29/20 [address] WITH IV CONTRAST CT DOSE: 420.28 mGycm HISTORY: Back pain. TECHNIQUE: Multiaxial CT images of the abdomen and pelvis were performed following the use of intravenous contrast. A dose lowering technique was utilized adhering to the principles of ALARA. COMPARISON STUDY: Abdomen and pelvis CT 02/12/2010. FINDINGS: Moderate to severe degenerative disc disease throughout the visualized thoracic and lumbar spine. There is levoscoliosis of the lumbar spine. The left lower quadrant pain, the intrathecal catheter entering the L1-L2 level. This extends cephalad to the T10 level. Small fat-containing bilateral Bochdalek hernias. Otherwise, the lung bases are clear. No pneumoperitoneum. No pneumatosis. Old nonunited right pubic ring fractures. There is a left total hip arthroplasty. Old, healed right-sided rib fractures. Moderate hiatus hernia containing the proximal stomach. The liver, gallbladder, spleen, adrenal glands, and pancreas are unremarkable. Bilateral renal hypodense lesions. These likely represent cysts. No hydronephrosis. Moderate thickening within the bladder wall with multiple trabeculations. The uterus is surgically absent. Colonic diverticulosis. No evidence for diverticulitis. Questionable thickening within the descending colon is likely due to underdistention. No definite bowel wall thickening or obstruction. The appendix appears surgically absent. No retroperitoneal lymphadenopathy. An IVC filter appears in good position. IMPRESSION: 1. Moderate bladder wall thickening. Recommend correlation with urinalysis to exclude a cystitis. 2. No definite bowel wall thickening or obstruction. 3. No hydronephrosis. 4. Colonic diverticulosis. No evidence for diverticulitis. 5. Moderate to severe degenerative disc disease throughout the visualized thor acic or lumbar spine. 6. Additional findings as described above. ACT 112: Negative or not required by law. Electronically signed by: Jacky Saldana M.D. 04/29/2020 6:10 PM Dictated: 04/29/20 1800 Transcribed: 04/29/20 1800 Blood Pressure Blood Pressure Findings: Normal blood pressure Discharge Plan Visit Data *Final* Discharge Date/Time: 04/29/20 18:15 Chief Complaint: Chest Pain ED Provider: Louis Vieira Discharge Problem: Acute upper gastrointestinal bleeding, Anemia, Weakness, Urinary tract infection, Elevated INR Patient Disposition: Admitted As Inpatient Discharge Instructions Interventions: ED Discharge Assessment Last Done: 04/29/20 18:15
--- NOTE | 2020-04-29 15:01 | XRay Report ---
XR chest 1V portable CLINICAL HISTORY: Chest Pain pain COMPARISON STUDY: 01/24/2018 FINDINGS: Mild stable cardiomegaly. Fixed hiatal hernia. Lungs are considered clear. Slight chronic b ibasilar interstitial change. IMPRESSION: Chronic change. No acute process. ACT 112: Negative or not required by law. The above report was generated using voice recognition software. It may contain grammatical, syntax or spelling errors. Electronically signed by: Morales Esparza M.D. 04/29/2020 3:00 PM
--- NOTE | 2020-04-29 15:22 | Electrocardiogram Report ---
Test Reason : Blood Pressure : / mmHG Vent. Rate : 088 BPM Atrial Rate : 088 BPM P-R Int : 162 ms QRS Dur : 064 ms QT Int : 378 ms P-R-T Axes : 079 050 047 degrees QTc Int : 457 ms Poor data quality, interpretation may be adversely affected Sinus rhythm with marked sinus arrhythmia Moderate voltage criteria for LVH, may be normal variant Cannot rule out Septal infarct (cited on or before 26-JAN-2018) Abnormal ECG When compared with ECG of 26-JAN-2018 06:35, No significant change Confirmed by Claus Love ([id number]) on 04/29/2020 3:22:21 PM Referred By: Confirmed By:Claus Love
[2020-04-29 15:25] LABS: Basophils # (auto) 0.02 K/uL (0-0.2); Basophils % (auto) 0.1 %; Eosinophils # (auto) 0.01 K/uL (0-0.5); Eosinophils % (auto) 0.1 %; Hematocrit (blood only) 23.2 % (37-47); Hemoglobin 7.2 g/dL (12.0-16.0); Immature Granulocytes # (auto) 0.06 K/uL (0.00-0.02); Immature Granulocytes % (auto) 0.4 %; Lymphocytes # (auto) 1.04 K/uL (1.2-3.4); Lymphocytes % (auto) 6.8 %; Mean Corpuscular Hemoglobin 26.5 pg (25-34); Mean Corpuscular Volume 85.3 fL (80-100); Mean Platelet Volume 9.3 fL (7.4-10.4); Monocytes # (auto) 0.49 K/uL (0.11-0.59); Monocytes % (auto) 3.2 %; Neutrophils # (auto) 13.71 K/uL (1.4-6.5); Neutrophils % (auto) 89.4 %; Nucleated RBC # (auto) 0.03 K/uL (0-0); Nucleated RBC % (auto) 0.2 %; Platelet Count 314 K/uL (130-400); RDW Coefficient of Variation 17.4 % (11.5-14.5); RDW Standard Deviation 53.2 fL (36.4-46.3); Red Blood Count 2.72 M/uL (4.2-5.4); White Blood Count 15.33 K/uL (4.8-10.8)
[2020-04-29 15:41] LABS: Alanine Aminotransferase 29 U/L (12-78); Aspartate Aminotransferase 21 U/L (15-37); BUN Creatinine Ratio 58.4 (10-20); Blood Urea Nitrogen 53 mg/dl (7-18); Calcium 8.6 mg/dl (8.5-10.1); Carbon Dioxide 24 mmol/L (21-32); Chloride 108 mmol/L (98-107); Creatinine Clr Calc Pharmacy 56.5 ml/min; Est GFR (African American) 75.7; Est GFR (Non-African American) 65.3; Glucose 86 mg/dl (70-99); Lipase 153 U/L (73-393); Potassium 3.7 mmol/L (3.5-5.1); Sodium 140 mmol/L (136-145)
[2020-04-29 15:46] LABS: Alkaline Phosphatase 42 U/L (45-117); Bilirubin,Total 0.3 mg/dl (0.2-1); Globulin 2.9 gm/dl (2.5-4.0); Total Protein 5.9 gm/dl (6.4-8.2); Troponin I < 0.015 ng/ml (0-0.045)
[2020-04-29 15:47] LABS: Prothrombin Time > 90.0 Seconds (9.0-12.0)
[2020-04-29 16:00] LABS: Hypochromasia Present
[2020-04-29 16:08] LABS: INR > 9.7 (0.9-1.1)
[2020-04-29] MEDS ORDERED: PANTOprazole 40 MG in SYRINGE 0 ML IV ONE (16:33)
[2020-04-29] MEDS ORDERED: SODIUM CHLORIDE 0.9% 250 ML IV PRN ×3 (16:41→20:42)
[2020-04-29] MEDS ORDERED: PHYTONADIONE 5 MG in SODIUM CHLORIDE 0.9% 50 ML IV ONE (16:42)
--- NOTE | 2020-04-29 17:32 | History & Physical Report ---
Date of Service April 29, 2020 Assessment & Plan (1) GI bleed: Likely secondary to upper GI bleed due to use of NSAID is on Coumadin Denies any hematemesis and/or melena Noted to have heme positive stool in the emergency room Has been started with intravenous Protonix drip N.p.o. after midnight GI consult for possible EGD tomorrow Symptomatic anemia Hemoglobin noted to be 7.2 on admission Has been using NSAID's as an outpatient No overt bleeding but stool is positive for blood We will get blood transfusion as needed Monitor H&H History of pulmonary embolism Has been on Coumadin INR is supratherapeutic at 9.7 Will give 5 mg of intravenous vitamin K Hold Coumadin for now-decision to continue after EGD and GI recommendation (2) Multiple sclerosis: History of multiple sclerosis Affecting mostly the right lower extremity Has neurogenic bladder with frequent attack of UTI No acute symptoms of MS right now We will continue outpatient medications (3) Neurogenic bladder: History of neurogenic bladder secondary to MS Send UA and culture if needed No antibiotic as of yet (4) Breast cancer: History of breast cancer No acute issues Other chronic medical conditions as mentioned in last medical history remained stable DVT prophylaxis SCDs for now History of Present Illness Chief Complaint: Dizziness with weakness on ambulation since this morning Primary Care Provider: Jil Schmid DO She is a 69-year-old female with significant past medical history including multiple sclerosis, history of pulmonary embolism on Coumadin, neurogenic bladder, osteoporosis and history of breast cancer apparently has been complaining of dizziness with ambulation since this morning. She remains weak and lethargic recently but she felt dizziness associated with some shakiness involving the extremities and nausea with ambulation this morning. She called 911 and is brought into the emergency room for further evaluation. She denies any increasing shortness of breath, any chest pain and/or palpitation, any fever and/or chills, any cough and/or sputum and any problem with the bowel habit. She denies any history of black stool and she has urinary frequency likely secondary to neurogenic bladder with recurrent attack of UTI. She was noted to have a very low hemoglobin of 7.2 in the emergency room and had a stool test came back positive for blood from that point he was started with intravenous Protonix and was advised admission. Apparently she has been on ibuprofen as an outpatient and also her INR was noted to be elevated at more than 9. No neurological symptoms noted Allergies Allergy/AdvReac Type Severity Reaction Status Date / Time No Known Allergies Allergy Verified 04/29/20 16:50 Home Medications Home Medications Medication Instructions Recorded Confirmed Type cholecalciferol (vitamin D3) 25 1,000 units PO QAM 09/18/18 04/29/20 History mcg (1,000 unit) capsule escitalopram oxalate 20 mg tablet 20 mg PO QAM tab 09/18/18 04/29/20 History oxybutynin chloride 15 mg 15 mg PO QAM 09/18/18 04/29/20 History tablet,extended release 24 hr prednisone 10 mg tablet 10 mg PO QAM 09/18/18 04/29/20 History warfarin 5 mg tablet 7.5 mg PO DAILY@1600 09/18/18 04/29/20 History teriflunomide 7 mg tablet 14 mg PO DAILY@1600 tab 09/12/19 04/29/20 History tizanidine 4 mg capsule 4 mg PO QID cap 09/12/19 04/29/20 History doxycycline monohydrate 100 mg PO Q2D@2200 04/29/20 04/29/20 History ibuprofen 200 mg PO Q6H PRN 04/29/20 04/29/20 History Past Med/Surg History Medical History Breast cancer (Resolved) DVT (deep venous thrombosis) (Chronic) Multiple sclerosis (Chronic) Neurogenic bladder (Chronic) Osteoporosis (Chronic) Pulmonary embolism (Resolved) Raynaud disease (Chronic) Surgical History H/O left mastectomy (Chronic) History of appendectomy (Chronic) History of open reduction and internal fixation (ORIF) procedure (Chronic) "left hip" Presence of intrathecal pump (Chronic) S/P IVC filter (Chronic) S/P partial hysterectomy (Chronic) Social History Preferred Language: Danish Communication Ability: Effective Visual Impairment: No Limitations Hearing Ability: Normal 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 Required: No Beliefs That Will Affect Care: None marital status: Single Current Living Situation: Alone current occupational status: retired Feels Safe at Home: Yes Smoking Status: Never smoker Tobacco Type: cigarettes ; packs per day: 1 ; Second Hand Exposure: Yes ; Hx Alcohol Use: Yes (occassionally) Alcohol type: wine Alcohol Intake Frequency: Holidays/Special Occasions Hx Substance Use: No Childhood Exposure to Second-Hand Smoke: Yes Review of Systems Review of Systems: All systems reviewed & are unremarkable except as noted in HPI & below Physical Exam Physical Exam: Lying in bed comfortably Constitutional: + thin; no acute distress and not ill appearing Eyes: PERRL, conjunctivae normal, anicteric sclerae ENMT: external ear and nose normal, oropharynx normal Neck: trachea midline, no thyromegaly Respiratory: normal respiratory effort; no respiratory distress Auscultation: lungs clear to auscultation bilaterally Cardiovascular: Rate/Rhythm: regular rate and regular rhythm Heart Sounds: no murmur Gastrointestinal (Abdomen): Inspection/Auscultation: abdomen normal to inspection; abdomen not distended Percussion/Palpation: abdomen soft; abdomen nontender Rectal is done by ER physician and the stool is positive for blood Musculoskeletal: No acute arthritis involving any joint Neurologic: Has multiple sclerosis affecting mostly the right leg and neurogenic bladder Lymphatic: no cervical or axillary lymphadenopathy Results & Data Results & Data ([facility]) Vital Signs (Past 12 Hours) Vital Signs Temp Pulse Resp BP Pulse Ox 04/29/20 15:00 93 H 23 129/86 04/29/20 14:30 87 24 04/29/20 14:00 89 13 04/29/20 13:34 90 16 97 04/29/20 13:32 85 14 126/68 100 04/29/20 13:30 36.5 C 83 24 126/68 100 Laboratory Results Short CBC 04/29/20 Range/Units 15:10 WBC 15.33 H (4.8-10.8) K/uL Hgb 7.2 L (12.0-16.0) g/dL Hct 23.2 L (37-47) % Plt Count 314 (130-400) K/uL BMP 04/29/20 15:10 Sodium 140 Potassium 3.7 Chloride 108 H Carbon Dioxide 24 BUN 53 H Creatinine 0.91 Glucose 86 Calcium 8.6 Cardiac Enzymes 04/29/20 Range/Units 15:10 Troponin I < 0.015 (0-0.045) ng/ml Liver Function 04/29/20 Range/Units 15:10 Total Bilirubin 0.3 (0.2-1) mg/dl AST 21 (15-37) U/L ALT 29 (12-78) U/L Alkaline Phosphatase 42 L (45-117) U/L Albumin 3.0 L (3.4-5.0) gm/dl Medications Administered Current Inpatient Medications Sodium Chloride (Nss) 250 mls @ 15 mls/hr IV .[id number] PRN PRN Reason: For Transfusion Stop: 04/30/20 02:42 Code Status & VTE Plan Code Status Full code VTE Prophylaxis Plan VTE Prophylaxis will be ordered: Yes
[2020-04-29] MEDS ORDERED: IOVERSOL 100ml IV PRN (17:40)
--- NOTE | 2020-04-29 18:11 | CT Scan Report ---
ABDOMEN AND PELVIS CT WITH IV CONTRAST CT DOSE: 420.28 mGycm HISTORY: Back pain. TECHNIQUE: Multiaxial CT images of the abdomen and pelvis were performed following the use of intrave nous contrast. A dose lowering technique was utilized adhering to the principles of ALARA. COMPARISON STUDY: Abdomen and pelvis CT 02/12/2010. FINDINGS: Moderate to severe degenerative disc disease throughout the visualized thoracic and lumbar spine. There is levoscoliosis of the lumbar spine. The left lower quadrant pain, the intrathecal cath eter entering the L1-L2 level. This extends cephalad to the T10 level. Small fat-containing bilateral Bochdalek hernias. Otherwise, the lung bases are clear. No pneumoperitoneum. No pneumatosis. Old non united right pubic ring fractures. There is a left total hip arthroplasty. Old, healed right-sided ri b fractures. Moderate hiatus hernia containing the proximal stomach. The liver, gallbladder, spleen, adrenal glands, and pancreas are unremarkable. Bilateral renal hypodense lesions. These likely repres ent cysts. No hydronephrosis. Moderate thickening within the bladder wall with multiple trabeculation s. The uterus is surgically absent. Colonic diverticulosis. No evidence for diverticulitis. Questiona ble thickening within the descending colon is likely due to underdistention. No definite bowel wall t hickening or obstruction. The appendix appears surgically absent. No retroperitoneal lymphadenopathy. An IVC filter appears in good position. IMPRESSION: 1. Moderate bladder wall thickening. Recommend correlation with urinalysis to exclude a cystitis. 2. No definite bowel wall thickening or obstruction. 3. No hydronephrosis. 4. Colonic diverticulosis. No evidence for diverticulitis. 5. Moderate to severe degenerative disc disease throughout the visualized thoracic or lumbar spine. 6. Additional findings as described above. ACT 112: Negative or not required by law. Electronically signed by: Jacky Saldana M.D. 04/29/2020 6:10 PM
[2020-04-29] MEDS ORDERED: cefTRIAXone SODIUM 1,000 MG/50 ML BAG IV STA (18:18)
[2020-04-29 18:45] LABS: Appearance Urine Cloudy (Clear); Bacteria Urine Automated 4+ (Negative); Bilirubin Urine Negative (Negative); Blood Urine 1+ (Negative); Cast Urine Automated 0 /lpf (0-5); Color Urine Yellow; Epithelial Cell Urine Auto 0-5 /lpf (0-5); Glucose Urine UA Negative (Negative); Ketones Urine Trace (Negative); Leukocyte Esterase Urine 3+ (Negative); Nitrite Urine Positive (Negative); Protein Urine Negative (Negative); RBC Urine Automated 0-4 /hpf (0-4); Specific Gravity Urine 1.041 (1.000-1.030); Urobilinogen Urine Negative (Negative); WBC Urine Automated >30 /hpf (0-5); pH Urine 5.5 (4.5-7.5)
[2020-04-29 19:02] LABS: Hematocrit (blood only) 20.9 % (37-47); Hemoglobin 6.5 g/dL (12.0-16.0)
[2020-04-29] MEDS ORDERED: PHYTONADIONE 5 MG TAB PO STA (20:42)
[2020-04-29] MEDS: TIZANIDINE HCL 4 MG TABLET PO SCH (20:52)
[2020-04-29] MEDS: DOXYCYCLINE HYCLATE 100 MG CAP PO SCH (20:52)
[2020-04-29] MEDS: NSS + 20MEQ KCL 20 MEQ/1,000 ML BAG IV SCH (20:59)
[2020-04-29] MEDS ORDERED: FUROSEMIDE 40 MG in SYRINGE 0 ML IV SCH (21:00)
[2020-04-30] MEDS: PANTOprazole 40 MG in DEXTROSE 5% 100 ML IV SCH ×4 (03:34→21:11)
[2020-04-30 05:53] LABS: Basophils # (auto) 0.02 K/uL (0-0.2); Basophils % (auto) 0.3 %; Eosinophils # (auto) 0.02 K/uL (0-0.5); Eosinophils % (auto) 0.3 %; Hematocrit (blood only) 24.1 % (37-47); Immature Granulocytes # (auto) 0.01 K/uL (0.00-0.02); Immature Granulocytes % (auto) 0.1 %; Lymphocytes % (auto) 18.2 %; Mean Corpuscular Hemoglobin 27.9 pg (25-34); Mean Corpuscular Hgb Conc 33.2 g/dL (32-36); Monocytes % (auto) 9.8 %; Neutrophils # (auto) 5.11 K/uL (1.4-6.5); Neutrophils % (auto) 71.3 %; Platelet Count 219 K/uL (130-400); RDW Coefficient of Variation 15.9 % (11.5-14.5); RDW Standard Deviation 48.1 fL (36.4-46.3); Red Blood Count 2.87 M/uL (4.2-5.4); White Blood Count 7.16 K/uL (4.8-10.8)
[2020-04-30 06:26] LABS: Calcium 7.6 mg/dl (8.5-10.1); Creatinine Clr Calc Pharmacy 63.5 ml/min; Est GFR (African American) 87.1; Est GFR (Non-African American) 75.2; Potassium 3.1 mmol/L (3.5-5.1)
[2020-04-30] MEDS: POTASSIUM CHLORIDE / WTR 10 MEQ/100 ML PLCT IV SCH ×4 (07:52→13:45)
[2020-04-30] MEDS: predniSONE 10 MG TABLET PO SCH (07:52)
[2020-04-30] MEDS: ESCITALOPRAM OXALATE 20 MG TAB PO SCH (07:52)
[2020-04-30] MEDS: TIZANIDINE HCL 4 MG TABLET PO SCH ×4 (07:52→21:09)
[2020-04-30] MEDS: CHOLECALCIFEROL 1,000 UNITS 25 MCG TAB PO SCH (07:52)
[2020-04-30] MEDS: OXYBUTYNIN CHLORIDE XL 5 MG TABCR PO SCH (07:52)
[2020-04-30 08:46] LABS: INR 1.4 (0.9-1.1); Prothrombin Time 14.2 Seconds (9.0-12.0)
[2020-04-30] MEDS: cefTRIAXone SODIUM 1,000 MG in DEXTROSE 5% 50 ML IV SCH (08:46)
--- NOTE | 2020-04-30 09:24 | Anesthesiology Consultation ---
Date of Service April 30, 2020 History Surgery Operation Date: 04/30/20 18:30 Proposed Procedures p Esophagogastroduodenoscopy Dr Claros - Marisa Claros MD Height/Weight Height: 5 ft 4 in Weight: 64.5 kg Allergies Allergy/AdvReac Type Severity Reaction Status Date / Time No Known Allergies Allergy Verified 04/29/20 16:50 Medications Home Medications Medication Instructions Recorded Confirmed Last Taken cholecalciferol (vitamin D3) 25 1,000 units PO QAM 09/18/18 04/29/20 Unknown mcg (1,000 unit) capsule escitalopram oxalate 20 mg tablet 20 mg PO QAM tab 09/18/18 04/29/20 04/29/20 oxybutynin chloride 15 mg 15 mg PO QAM 09/18/18 04/29/20 04/29/20 tablet,extended release 24 hr prednisone 10 mg tablet 10 mg PO QAM 09/18/18 04/29/20 04/29/20 warfarin 5 mg tablet 7.5 mg PO DAILY@1600 09/18/18 04/29/20 04/28/20 16:00 7.5mg teriflunomide 7 mg tablet 14 mg PO DAILY@1600 tab 09/12/19 04/29/20 04/28/20 16:00 tizanidine 4 mg capsule 4 mg PO QID cap 09/12/19 04/29/20 Unknown doxycycline monohydrate 100 mg PO Q2D@2200 04/29/20 04/29/20 04/27/20 ibuprofen 200 mg PO Q6H PRN 04/29/20 04/29/20 04/29/20 10:00 600 mg Active Medications Generic Name Dose Route Start Last Admin Trade Name Freq PRN Reason Stop Dose Admin Doxycycline Hyclate 100 mg 04/29/20 22:00 04/29/20 20:52 Vibramycin PO 05/29/20 21:59 100 mg Q2D@2200 MICHELLE Administration Escitalopram Oxalate 20 mg 04/30/20 09:00 04/30/20 07:52 Lexapro Tab PO 05/30/20 08:59 20 mg QAM MICHELLE Administration Potassium Chloride/Sodium Chloride 20 meq in 1,000 mls @ 75 mls/hr 04/29/20 20:00 04/30/20 03:01 Normal Saline W/20 Meq Kcl IV 05/01/20 11:59 75 mls/hr .[id number] MICHELLE Infusion Pantoprazole Sodium 40 mg/ 100 mls @ 20 mls/hr 04/29/20 22:15 04/30/20 08:41 Dextrose IV 05/29/20 22:14 8 mg/hr Q5H MICHELLE 20 mls/hr Administration 8 MG/HR Potassium Chloride 10 meq in 100 mls @ 100 mls/hr 04/30/20 07:30 04/30/20 08:52 K Benjamin / Wtr IV 04/30/20 11:29 100 mls/hr Q1H MICHELLE Administration Ceftriaxone Sodium 1,000 mg/ 50 mls @ 100 mls/hr 04/30/20 09:00 04/30/20 09:17 Dextrose IV 05/05/20 08:59 Infused Q24H MICHELLE Infusion Protocol Ioversol 93 ml 04/29/20 17:40 04/29/20 17:41 Optiray 320 100ml IV 05/03/20 17:39 93 ml ONCE PRN Administration Interaction Checking Miscellaneous 1 ea 04/30/20 00:00 04/30/20 07:39 Order Awaiting Action N/A 05/30/20 00:00 Not Given QS MICHELLE Oxybutynin Chloride 15 mg 04/30/20 09:00 04/30/20 07:52 Ditropan Xl PO 05/30/20 08:59 15 mg QAM MICHELLE Administration Prednisone 10 mg 04/30/20 09:00 04/30/20 07:52 Prednisone PO 05/30/20 08:59 10 mg QAM MICHELLE Administration Tizanidine HCl 4 mg 04/29/20 21:00 04/30/20 07:52 Zanaflex PO 05/29/20 20:59 4 mg QID MICHELLE Administration Vitamin D 1,000 units 04/30/20 09:00 04/30/20 07:52 Vitamin D3 PO 05/30/20 08:59 1,000 units QAM MICHELLE Administration Past Medical History Medical History Breast cancer (Resolved) DVT (deep venous thrombosis) (Chronic) Multiple sclerosis (Chronic) Neurogenic bladder (Chronic) Osteoporosis (Chronic) Pulmonary embolism (Resolved) Raynaud disease (Chronic) Past Surgical History Surgical History H/O left mastectomy (Chronic) History of appendectomy (Chronic) History of open reduction and internal fixation (ORIF) procedure (Chronic) "left hip" Presence of intrathecal pump (Chronic) S/P IVC filter (Chronic) S/P partial hysterectomy (Chronic) Social History Smoking Status: Former smoker tobacco type: cigarettes Hx Alcohol Use: No Alcohol type: wine Hx Substance Use: No Physical Exam Vital Signs Last Vital Signs Temp 37.0 C 04/30/20 07:05 Pulse 140 H 04/30/20 07:05 Resp 20 04/30/20 07:05 BP 117/74 04/30/20 07:05 Pulse Ox 96 04/30/20 07:05 Testing Laboratory Results 04/30/20 05:21 04/30/20 05:21 PT 14.2 Seconds (9.0-12.0) H 04/30/20 08:24 INR 1.4 (0.9-1.1) H 04/30/20 08:24 APTT 57.0 Seconds (21.0-31.0) H* 04/29/20 15:10 Urine Color Yellow 04/29/20 18:33 Urine Appearance Cloudy (Clear) A 04/29/20 18:33 Urine pH 5.5 (4.5-7.5) 04/29/20 18:33 Ur Specific [place] 1.041 (1.000-1.030) H 04/29/20 18:33 Urine Protein Negative (Negative) 04/29/20 18:33 Urine Glucose (UA) Negative (Negative) 04/29/20 18:33 Urine Ketones Trace (Negative) H 04/29/20 18:33 Urine Nitrite Positive (Negative) A 04/29/20 18:33 Ur Leukocyte Esterase 3+ (Negative) H 04/29/20 18:33 Urine WBC (Auto) >30 /hpf (0-5) H 04/29/20 18:33 Urine RBC (Auto) 0-4 /hpf (0-4) 04/29/20 18:33 U Hyaline Cast (Auto) 0 /lpf (0-5) 04/29/20 18:33 U Epithel Cells (Auto) 0-5 /lpf (0-5) 04/29/20 18:33 Urine Bacteria (Auto) 4+ (Negative) H 04/29/20 18:33 Blood Type A Positive 04/29/20 16:20 Antibody Screen NEGATIVE 04/29/20 16:20 04/29/20 18:33 Urine Culture - Preliminary Urine,Clean Catch Gram negative bacilli Electrocardiogram Date: 04/29/20 Sinus rhythm with marked sinus arrhythmia Moderate voltage criteria for LVH, may be normal variant Cannot rule out Septal infarct (cited on or before 26-JAN-2018) Abnormal ECG When compared with ECG of 26-JAN-2018 06:35, No significant change
[2020-04-30] MEDS ORDERED: LIDOCAINE HCL 2% 2 ML VIAL/AMP(20MG/ML) INFIL ONE ×2 (10:20→10:49)
[2020-04-30] MEDS ORDERED: PROPOFOL IV EMULSION 10 MG/ML 20 ML VIAL IV ONE (10:20)
--- NOTE | 2020-04-30 10:21 | History & Physical Report ---
Date of Service April 30, 2020 Assessment & Plan (1) Acute upper gastrointestinal bleeding: EGD today History of Present Illness Primary Care Provider: Jil Schmid DO EGD for melena Allergies Allergy/AdvReac Type Severity Reaction Status Date / Time No Known Allergies Allergy Verified 04/30/20 10:12 Home Medications Home Medications Medication Instructions Recorded Confirmed Type cholecalciferol (vitamin D3) 25 1,000 units PO QAM 09/18/18 04/29/20 History mcg (1,000 unit) capsule escitalopram oxalate 20 mg tablet 20 mg PO QAM tab 09/18/18 04/29/20 History oxybutynin chloride 15 mg 15 mg PO QAM 09/18/18 04/29/20 History tablet,extended release 24 hr prednisone 10 mg tablet 10 mg PO QAM 09/18/18 04/29/20 History warfarin 5 mg tablet 7.5 mg PO DAILY@1600 09/18/18 04/29/20 History teriflunomide 7 mg tablet 14 mg PO DAILY@1600 tab 09/12/19 04/29/20 History tizanidine 4 mg capsule 4 mg PO QID cap 09/12/19 04/29/20 History doxycycline monohydrate 100 mg PO Q2D@2200 04/29/20 04/29/20 History ibuprofen 200 mg PO Q6H PRN 04/29/20 04/29/20 History Past Med/Surg History Medical History Breast cancer (Resolved) DVT (deep venous thrombosis) (Chronic) Multiple sclerosis (Chronic) Neurogenic bladder (Chronic) Osteoporosis (Chronic) Pulmonary embolism (Resolved) Raynaud disease (Chronic) Surgical History H/O left mastectomy (Chronic) History of appendectomy (Chronic) History of open reduction and internal fixation (ORIF) procedure (Chronic) "left hip" Presence of intrathecal pump (Chronic) S/P IVC filter (Chronic) S/P partial hysterectomy (Chronic) Social History Preferred Language: Frisian Communication Ability: Effective Visual Impairment: No Limitations Hearing Ability: Normal 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 Beliefs That Will Affect Care: None marital status: Single Current Living Situation: Alone current occupational status: retired Feels Safe at Home: Yes Smoking Status: Former smoker Tobacco Type: cigarettes ; packs per day: 1 ; Second Hand Exposure: Yes ; Hx Alcohol Use: No Hx Substance Use: No Childhood Exposure to Second-Hand Smoke: Yes Review of Systems All systems reviewed & are unremarkable except as noted in HPI & below Physical Exam Constitutional: comfortable; no acute distress Respiratory: normal respiratory effort, lungs clear to auscultation Cardiovascular: RRR, no murmur, no edema Gastrointestinal (Abdomen): normal bowel sounds, soft, nontender, no hepatosplenomegaly Results & Data Vital Signs (Past 12 Hours) Vital Signs Temp Pulse Pulse Resp BP BP Pulse Ox 04/30/20 09:35 37.0 C 97 H 18 120/92 95 04/30/20 07:05 37.0 C 140 H 20 117/74 96 04/30/20 01:54 96 H 04/30/20 01:42 36.9 C 97 H 16 110/74 95 04/30/20 01:10 37.5 C 96 H 16 106/70 96 04/30/20 00:47 36.8 C 100 H 16 132/77 97 04/30/20 00:37 37.7 C H 101 H 18 106/71 96 04/30/20 00:33 37.4 C 99 H 16 109/76 96 04/30/20 00:29 37.7 C H 101 H 18 106/71 96 04/30/20 00:10 37.4 C 99 H 16 109/76 04/29/20 23:40 37.1 C 105 H 18 106/71 04/29/20 23:10 37.5 C 105 H 18 118/73 99 04/29/20 22:57 37.7 C H 105 H 18 129/81 97 04/29/20 22:40 37.1 C 103 H 20 150/60 H 97 Code Status & VTE Plan VTE Prophylaxis Plan VTE Prophylaxis will be ordered: Yes
--- NOTE | 2020-04-30 10:56 | GI REPORT ---
Patient Name: Kandy Shelby Procedure Date: 04/30/2020 10:36 AM Date of : 1950 Admit Type: Inpatient Age: 69 Gender: Female Attending MD: Marisa Claros MD Procedure: Upper GI endoscopy Providers: Marisa Claros MD Referring MD: Fernando Armenta Md Indications: Melena Medicines: Propofol per Anesthesia Complications: No immediate complications. Estimated Blood Loss: Estimated blood loss: none. Procedure: Pre-Anesthesia Assessment: - Prior to the procedure, a History and Physical was performed, and patient medications, allergies and sensitivities were reviewed. The patient's tolerance of previous anesthesia was reviewed. - The risks and benefits of the procedure and the sedation options and risks were discussed with the patient. All questions were answered and informed consent was obtained. - Patient identification and proposed procedure were verified prior to the procedure by the physician and the nurse. The procedure was verified in the procedure room. - Pre-procedure physical examination revealed no contraindications to sedation. After obtaining informed consent, the endoscope was passed under direct vision. Throughout the procedure, the patient's blood pressure, pulse, and oxygen saturations were monitored continuously. The Endoscope was introduced through the mouth, and advanced to the second part of duodenum. The upper GI endoscopy was accomplished without difficulty. The patient tolerated the procedure well. Findings: A 4 cm hiatal hernia was found. The proximal extent of the gastric folds (end of tubular esophagus) was 32 cm from the incisors. The hiatal narrowing was 36 cm from the incisors. LA Grade A (one or more mucosal breaks less than 5 mm, not extending between tops of 2 mucosal folds) esophagitis with no bleeding was found at the gastroesophageal junction. One non-bleeding cratered gastric ulcer with a clean ulcer base (Eduardo Class III) was found in the gastric antrum. The lesion was 15 mm in largest dimension. The duodenal bulb and second portion of the duodenum were normal. Impression: - 4 cm hiatal hernia. - LA Grade A reflux esophagitis. - Non-bleeding gastric ulcer with a clean ulcer base (Eduardo Class III) likely NSAIDs related. - Normal duodenal bulb and second portion of the duodenum. - No specimens collected. Recommendation: - Return patient to [facility] for [facility] care. - Clear liquid diet today then advance tomorrow as tolerated. - No aspirin, ibuprofen, naproxen, or other non-steroidal anti-inflammatory drugs. - Use a proton pump inhibitor IV daily today then change to Protonix (pantoprazole) 40 mg PO BID for 2 months. - Repeat upper endoscopy in 2 months to check healing and obtain biopsies. - Can resume Coumadin after 2 days if H/H remains stable. Marisa Claros MD 04/30/2020 10:55:38 AM This report has been signed electronically. Note Initiated On: 04/30/2020 10:36 AM Number of Addenda: 0 I attest to the content of the Intraoperative Record and orders documented therein, exceptions below {[id number]}
[2020-04-30 12:41] LABS: Hematocrit (blood only) 25.3 % (37-47); Hemoglobin 8.4 g/dL (12.0-16.0)
--- NOTE | 2020-04-30 13:01 | Anesthesiology Progress Note ---
Date of Service April 30, 2020 Anesthesia Post Procedure Vital Signs Vital Signs: Temp Pulse Pulse Resp BP BP Pulse Ox 04/30/20 11:24 86 20 157/78 H 97 04/30/20 11:09 91 H 20 116/94 96 04/30/20 10:54 94 H 20 98/57 L 100 04/30/20 09:35 37.0 C 97 H 18 120/92 95 04/30/20 07:05 37.0 C 140 H 20 117/74 96 04/30/20 01:54 96 H 04/30/20 01:42 36.9 C 97 H 16 110/74 95 04/30/20 01:10 37.5 C 96 H 16 106/70 96 04/30/20 00:47 36.8 C 100 H 16 132/77 97 04/30/20 00:37 37.7 C H 101 H 18 106/71 96 04/30/20 00:33 37.4 C 99 H 16 109/76 96 04/30/20 00:29 37.7 C H 101 H 18 106/71 96 04/30/20 00:10 37.4 C 99 H 16 109/76 04/29/20 23:40 37.1 C 105 H 18 106/71 04/29/20 23:10 37.5 C 105 H 18 118/73 99 04/29/20 22:57 37.7 C H 105 H 18 129/81 97 04/29/20 22:40 37.1 C 103 H 20 150/60 H 97 04/29/20 22:06 37.5 C 98 H 18 148/71 H 100 04/29/20 21:57 36.8 C 103 H 20 119/77 04/29/20 21:27 37 C 104 H 20 L 04/29/20 20:57 37.0 C 91 H 18 149/58 H 96 04/29/20 20:42 37.1 C 107 H 20 133/75 97 04/29/20 20:41 36.8 C 16 135/69 04/29/20 20:25 36.9 C 101 H 20 143/80 H 94 04/29/20 18:42 106 H 19 97 04/29/20 17:35 128 H 04/29/20 17:31 137/84 04/29/20 17:30 100 04/29/20 17:29 96 H 19 147/89 H 91 04/29/20 17:28 147/89 H 04/29/20 16:50 95 H 15 04/29/20 16:40 98 H 15 100 04/29/20 16:30 106 H 20 04/29/20 16:20 113 H 04/29/20 16:10 97 H 22 04/29/20 16:00 100 H 28 H 04/29/20 15:50 98 H 21 84 L 04/29/20 15:40 97 H 15 96 04/29/20 15:30 90 19 87 L 04/29/20 15:20 100 H 15 100 04/29/20 15:13 96 H 21 129/86 04/29/20 15:10 94 H 24 04/29/20 15:00 93 H 23 129/86 04/29/20 14:30 87 24 04/29/20 14:00 89 13 04/29/20 13:34 90 16 97 04/29/20 13:32 85 14 126/68 100 04/29/20 13:30 36.5 C 83 24 126/68 100 Transfer of Care Handoff Completed per policy Notes Mental Status: alert / awake / arousable and participated in evaluation Patient Amnestic to Procedure: Yes Nausea / Vomiting: adequately controlled Pain: adequately controlled Airway Patency, RR, SpO2: stable & adequate BP & HR: stable & adequate Hydration State: stable & adequate Anesthetic Complications: no major complications apparent and Pt Satisfied with anesthetic care
--- NOTE | 2020-04-30 13:23 | Gastrointestinal Consultation ---
Date of Consultation April 30, 2020 Assessment & Plan (1) Anemia: 69 y/o female on chronic Coumadin for PE, recently taking NSAIDs for back pain, presents with melena x 1 and acute on chronic anemia with elevated BUN, (HGB 6.5 -> 8 s/p pRBC), along with supratherapeutic INR (9.7 -> 1.4 s/p vit k). Concern for UGIB (PUD, etc). On exam abd is soft, VSS. - Keep NPO - EGD today to eval for source of bleeding - Hold AC - Cont IV PPI - Trend H&H, transfuse PRN - IVF - Monitor and document GI output - Analgesia, antiemetics PRN - Should not use NSAIDs on Coumadin and this was explained to her Thank you for allowing us to participate in the care of this patient. Please call with any acute changes, questions or concerns. Please see addendum below with additional recommendation from my supervising physician. (2) Melena: Supervising Physician Co-Signing Physician Notes I performed a history and physical examination of the patient today, including specifically on physical exam - soft abdomen. I have discussed the patient's management with the advanced practitioner. Please refer to the nurse practitioner's note for the documented findings and plan of care. EGD today History of Present Illness Reason for Consultation: GI bleed Attending Physician: Fernando Armenta MD History of Present Illness 69 y/o female with PMhx PE on Coumadin, MS, hiatal hernia, h/o esophageal ring, who presented to the ER yesterday for chest pain; pt also noted a large loose black BM yesterday. On arrival was found to have acute on chronic anemia with HGB 6.5 (baseline 8-10), BUN acutely elevated at 53, and supratherapeutic INR < 9.7. CXR neg, CTAP with hiatal hernia, no evidence for bowel obstruction. Pt was admitted, started on PPI gttt and given vit K. This AM notes she feels better than yesterday; no further GI output. HGB now 8; INR 1.4. VSS, afebrile. Has chronic solid food dysphagia and h/o esophageal ring. Rare heartburn. Does take 600 mg ibuprofen daily recently for back pain. Denies tobacco, ETOH use. Denies abd pain, nausea, vomiting, hematemesis, chest pain, dyspnea, dysuria, easy bruising, weight loss, change in appetite, fever, chills, cough. EGD 01/25/18: Gastritis Colonoscopy 02/12: One 1 mm polyp Allergies Allergy/AdvReac Type Severity Reaction Status Date / Time No Known Allergies Allergy Verified 04/30/20 10:12 Home Medications Home Medications Medication Instructions Recorded Confirmed Type cholecalciferol (vitamin D3) 25 1,000 units PO QAM 09/18/18 04/29/20 History mcg (1,000 unit) capsule escitalopram oxalate 20 mg tablet 20 mg PO QAM tab 09/18/18 04/29/20 History oxybutynin chloride 15 mg 15 mg PO QAM 09/18/18 04/29/20 History tablet,extended release 24 hr prednisone 10 mg tablet 10 mg PO QAM 09/18/18 04/29/20 History warfarin 5 mg tablet 7.5 mg PO DAILY@1600 09/18/18 04/29/20 History teriflunomide 7 mg tablet 14 mg PO DAILY@1600 tab 09/12/19 04/29/20 History tizanidine 4 mg capsule 4 mg PO QID cap 09/12/19 04/29/20 History doxycycline monohydrate 100 mg PO Q2D@2200 04/29/20 04/29/20 History ibuprofen 200 mg PO Q6H PRN 04/29/20 04/29/20 History Patient History Medical History Breast cancer (Resolved) DVT (deep venous thrombosis) (Chronic) Multiple sclerosis (Chronic) Neurogenic bladder (Chronic) Osteoporosis (Chronic) Pulmonary embolism (Resolved) Raynaud disease (Chronic) Surgical History H/O left mastectomy (Chronic) History of appendectomy (Chronic) History of open reduction and internal fixation (ORIF) procedure (Chronic) "left hip" Presence of intrathecal pump (Chronic) S/P IVC filter (Chronic) S/P partial hysterectomy (Chronic) Social History Preferred Language: [place]ar[place] Communication Ability: Effective Visual Impairment: No Limitations Hearing Ability: Normal 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 Beliefs That Will Affect Care: None marital status: Single Current Living Situation: Alone current occupational status: retired Feels Safe at Home: Yes Smoking Status: Former smoker Tobacco Type: cigarettes ; packs per day: 1 ; Second Hand Exposure: Yes ; Hx Alcohol Use: No Hx Substance Use: No Childhood Exposure to Second-Hand Smoke: Yes Review of Systems Review of Systems: All systems reviewed & are unremarkable except as noted in HPI & below Physical Exam Constitutional: WD/WN, vitals as above no acute distress Respiratory: normal respiratory effort, lungs clear to auscultation Cardiovascular: Rate/Rhythm: regular rate and regular rhythm Extremities: no edema Gastrointestinal (Abdomen): normal bowel sounds, soft, nontender, no hepatosplenomegaly Inspection/Auscultation: abdomen not distended Skin: no rashes, warm and dry Psychiatric: A+Ox3, euthymic affect Results & Data ([facility]) Vital Signs (Past 12 Hours) Vital Signs Temp Pulse Pulse Resp BP BP Pulse Ox 04/30/20 11:24 86 20 157/78 H 97 04/30/20 11:09 91 H 20 116/94 96 04/30/20 10:54 94 H 20 98/57 L 100 04/30/20 09:35 37.0 C 97 H 18 120/92 95 04/30/20 07:05 37.0 C 140 H 20 117/74 96 04/30/20 01:54 96 H 04/30/20 01:42 36.9 C 97 H 16 110/74 95 Laboratory Results 04/30/20 04/30/20 04/30/20 Range/Units 12:20 08:24 05:21 WBC (4.8-10.8) K/uL RBC (4.2-5.4) M/uL Hgb 8.4 L (12.0-16.0) g/dL Hct 25.3 L (37-47) % MCV (80-100) fL MCH (25-34) pg MCHC (32-36) g/dL RDW Std Deviation (36.4-46.3) fL RDW Coeff of Tiffanie (11.5-14.5) % Plt Count (130-400) K/uL MPV (7.4-10.4) fL Immature Gran % (Auto) % Neut % (Auto) % Lymph % (Auto) % [place] % (Auto) % Eos % (Auto) % Baso % (Auto) % Immature Gran # (Auto) (0.00-0.02) K/uL Neut # (Auto) (1.4-6.5) K/uL Lymph # (Auto) (1.2-3.4) K/uL [place] # (Auto) (0.11-0.59) K/uL Eos # (Auto) (0-0.5) K/uL Baso # (Auto) (0-0.2) K/uL Absolute Nucleated RBC (0-0) K/uL Nucleated RBC % (auto) % Hypochromasia PT 14.2 H (9.0-12.0) Seconds INR 1.4 H (0.9-1.1) APTT (21.0-31.0) Seconds PTT Ratio Sodium 144 (136-145) mmol/L Potassium 3.1 L D (3.5-5.1) mmol/L Chloride 109 H (98-107) mmol/L Carbon Dioxide 30 (21-32) mmol/L Anion Gap 5.0 (3-11) BUN 37 H (7-18) mg/dl Creatinine 0.81 (0.6-1.2) mg/dl Est Cr Clr Drug Dosing 63.5 ml/min Est GFR ( Amer) 87.1 Est GFR (Non-Af Amer) 75.2 BUN/Creatinine Ratio 46.0 H (10-20) Glucose 85 (70-99) mg/dl Calcium 7.6 L (8.5-10.1) mg/dl Magnesium (1.8-2.4) mg/dl Total Bilirubin (0.2-1) mg/dl AST (15-37) U/L ALT (12-78) U/L Alkaline Phosphatase (45-117) U/L Troponin I (0-0.045) ng/ml Total Protein (6.4-8.2) gm/dl Albumin (3.4-5.0) gm/dl Globulin (2.5-4.0) gm/dl Albumin/Globulin Ratio (0.9-2) Lipase (73-393) U/L Urine Color Urine Appearance (Clear) Urine pH (4.5-7.5) Ur Specific [place] (1.000-1.030) Urine Protein (Negative) Urine Glucose (UA) (Negative) Urine Ketones (Negative) Urine Blood (Negative) Urine Nitrite (Negative) Urine Bilirubin (Negative) Urine Urobilinogen (Negative) Ur Leukocyte Esterase (Negative) Urine WBC (Auto) (0-5) /hpf Urine RBC (Auto) (0-4) /hpf U Hyaline Cast (Auto) (0-5) /lpf U Epithel Cells (Auto) (0-5) /lpf Urine Bacteria (Auto) (Negative) Blood Type Antibody Screen Crossmatch 04/30/20 04/29/20 04/29/20 Range/Units 05:21 22:05 18:35 WBC 7.16 (4.8-10.8) K/uL RBC 2.87 L (4.2-5.4) M/uL Hgb 8.0 L 6.5 L* (12.0-16.0) g/dL Hct 24.1 L 20.9 L* (37-47) % MCV 84.0 (80-100) fL MCH 27.9 (25-34) pg MCHC 33.2 (32-36) g/dL RDW Std Deviation 48.1 H (36.4-46.3) fL RDW Coeff of [place] 15.9 H (11.5-14.5) % Plt Count 219 (130-400) K/uL MPV 9.0 (7.4-10.4) fL Immature Gran % (Auto) 0.1 % Neut % (Auto) 71.3 % Lymph % (Auto) 18.2 % [place] % (Auto) 9.8 % Eos % (Auto) 0.3 % Baso % (Auto) 0.3 % Immature Gran # (Auto) 0.01 (0.00-0.02) K/uL Neut # (Auto) 5.11 (1.4-6.5) K/uL Lymph # (Auto) 1.30 (1.2-3.4) K/uL [place] # (Auto) 0.70 H (0.11-0.59) K/uL Eos # (Auto) 0.02 (0-0.5) K/uL Baso # (Auto) 0.02 (0-0.2) K/uL Absolute Nucleated RBC (0-0) K/uL Nucleated RBC % (auto) % Hypochromasia PT (9.0-12.0) Seconds INR (0.9-1.1) APTT (21.0-31.0) Seconds PTT Ratio Sodium (136-145) mmol/L Potassium (3.5-5.1) mmol/L Chloride (98-107) mmol/L Carbon Dioxide (21-32) mmol/L Anion Gap (3-11) BUN (7-18) mg/dl Creatinine (0.6-1.2) mg/dl Est Cr Clr Drug Dosing ml/min Est GFR ( Amer) Est GFR (Non-Af Amer) BUN/Creatinine Ratio (10-20) Glucose (70-99) mg/dl Calcium (8.5-10.1) mg/dl Magnesium 2.1 (1.8-2.4) mg/dl Total Bilirubin (0.2-1) mg/dl AST (15-37) U/L ALT (12-78) U/L Alkaline Phosphatase (45-117) U/L Troponin I (0-0.045) ng/ml Total Protein (6.4-8.2) gm/dl Albumin (3.4-5.0) gm/dl Globulin (2.5-4.0) gm/dl Albumin/Globulin Ratio (0.9-2) Lipase (73-393) U/L Urine Color Urine Appearance (Clear) Urine pH (4.5-7.5) Ur Specific [place] (1.000-1.030) Urine Protein (Negative) Urine Glucose (UA) (Negative) Urine Ketones (Negative) Urine Blood (Negative) Urine Nitrite (Negative) Urine Bilirubin (Negative) Urine Urobilinogen (Negative) Ur Leukocyte Esterase (Negative) Urine WBC (Auto) (0-5) /hpf Urine RBC (Auto) (0-4) /hpf U Hyaline Cast (Auto) (0-5) /lpf U Epithel Cells (Auto) (0-5) /lpf Urine Bacteria (Auto) (Negative) Blood Type Antibody Screen Crossmatch 04/29/20 04/29/20 04/29/20 Range/Units 18:33 16:20 15:10 WBC (4.8-10.8) K/uL RBC (4.2-5.4) M/uL Hgb (12.0-16.0) g/dL Hct (37-47) % MCV (80-100) fL MCH (25-34) pg MCHC (32-36) g/dL RDW Std Deviation (36.4-46.3) fL RDW Coeff of [place]anie (11.5-14.5) % Plt Count (130-400) K/uL MPV (7.4-10.4) fL Immature Gran % (Auto) % Neut % (Auto) % Lymph % (Auto) % [place] % (Auto) % Eos % (Auto) % Baso % (Auto) % Immature Gran # (Auto) (0.00-0.02) K/uL Neut # (Auto) (1.4-6.5) K/uL Lymph # (Auto) (1.2-3.4) K/uL [place] # (Auto) (0.11-0.59) K/uL Eos # (Auto) (0-0.5) K/uL Baso # (Auto) (0-0.2) K/uL Absolute Nucleated RBC (0-0) K/uL Nucleated RBC % (auto) % Hypochromasia PT (9.0-12.0) Seconds INR (0.9-1.1) APTT (21.0-31.0) Seconds PTT Ratio Sodium 140 (136-145) mmol/L Potassium 3.7 (3.5-5.1) mmol/L Chloride 108 H (98-107) mmol/L Carbon Dioxide 24 (21-32) mmol/L Anion Gap 8.0 (3-11) BUN 53 H (7-18) mg/dl Creatinine 0.91 (0.6-1.2) mg/dl Est Cr Clr Drug Dosing 56.5 ml/min Est GFR ( Amer) 75.7 Est GFR (Non-Af Amer) 65.3 BUN/Creatinine Ratio 58.4 H (10-20) Glucose 86 (70-99) mg/dl Calcium 8.6 (8.5-10.1) mg/dl Magnesium (1.8-2.4) mg/dl Total Bilirubin 0.3 (0.2-1) mg/dl AST 21 (15-37) U/L ALT 29 (12-78) U/L Alkaline Phosphatase 42 L (45-117) U/L Troponin I < 0.015 (0-0.045) ng/ml Total Protein 5.9 L (6.4-8.2) gm/dl Albumin 3.0 L (3.4-5.0) gm/dl Globulin 2.9 (2.5-4.0) gm/dl Albumin/Globulin Ratio 1.0 (0.9-2) Lipase 153 (73-393) U/L Urine Color Yellow Urine Appearance Cloudy A (Clear) Urine pH 5.5 (4.5-7.5) Ur Specific [place] 1.041 H (1.000-1.030) Urine Protein Negative (Negative) Urine Glucose (UA) Negative (Negative) Urine Ketones Trace H (Negative) Urine Blood 1+ H (Negative) Urine Nitrite Positive A (Negative) Urine Bilirubin Negative (Negative) Urine Urobilinogen Negative (Negative) Ur Leukocyte Esterase 3+ H (Negative) Urine WBC (Auto) >30 H (0-5) /hpf Urine RBC (Auto) 0-4 (0-4) /hpf U Hyaline Cast (Auto) 0 (0-5) /lpf U Epithel Cells (Auto) 0-5 (0-5) /lpf Urine Bacteria (Auto) 4+ H (Negative) Blood Type A Positive Antibody Screen NEGATIVE Crossmatch See Detail 04/29/20 04/29/20 Range/Units 15:10 15:10 WBC 15.33 H (4.8-10.8) K/uL RBC 2.72 L (4.2-5.4) M/uL Hgb 7.2 L (12.0-16.0) g/dL Hct 23.2 L (37-47) % MCV 85.3 (80-100) fL MCH 26.5 (25-34) pg MCHC 31.0 L (32-36) g/dL RDW Std Deviation 53.2 H (36.4-46.3) fL RDW Coeff of [place]iffanie 17.4 H (11.5-14.5) % Plt Count 314 (130-400) K/uL MPV 9.3 (7.4-10.4) fL Immature Gran % (Auto) 0.4 % Neut % (Auto) 89.4 % Lymph % (Auto) 6.8 % [place] % (Auto) 3.2 % Eos % (Auto) 0.1 % Baso % (Auto) 0.1 % Immature Gran # (Auto) 0.06 H (0.00-0.02) K/uL Neut # (Auto) 13.71 H (1.4-6.5) K/uL Lymph # (Auto) 1.04 L (1.2-3.4) K/uL [place] # (Auto) 0.49 (0.11-0.59) K/uL Eos # (Auto) 0.01 (0-0.5) K/uL Baso # (Auto) 0.02 (0-0.2) K/uL Absolute Nucleated RBC 0.03 H (0-0) K/uL Nucleated RBC % (auto) 0.2 % Hypochromasia Present PT > 90.0 H (9.0-12.0) Seconds INR > 9.7 H* (0.9-1.1) APTT 57.0 H* (21.0-31.0) Seconds PTT Ratio 2.0 Sodium (136-145) mmol/L Potassium (3.5-5.1) mmol/L Chloride (98-107) mmol/L Carbon Dioxide (21-32) mmol/L Anion Gap (3-11) BUN (7-18) mg/dl Creatinine (0.6-1.2) mg/dl Est Cr Clr Drug Dosing ml/min Est GFR ( Amer) Est GFR (Non-Af Amer) BUN/Creatinine Ratio (10-20) Glucose (70-99) mg/dl Calcium (8.5-10.1) mg/dl Magnesium (1.8-2.4) mg/dl Total Bilirubin (0.2-1) mg/dl AST (15-37) U/L ALT (12-78) U/L Alkaline Phosphatase (45-117) U/L Troponin I (0-0.045) ng/ml Total Protein (6.4-8.2) gm/dl Albumin (3.4-5.0) gm/dl Globulin (2.5-4.0) gm/dl Albumin/Globulin Ratio (0.9-2) Lipase (73-393) U/L Urine Color Urine Appearance (Clear) Urine pH (4.5-7.5) Ur Specific [place] (1.000-1.030) Urine Protein (Negative) Urine Glucose (UA) (Negative) Urine Ketones (Negative) Urine Blood (Negative) Urine Nitrite (Negative) Urine Bilirubin (Negative) Urine Urobilinogen (Negative) Ur Leukocyte Esterase (Negative) Urine WBC (Auto) (0-5) /hpf Urine RBC (Auto) (0-4) /hpf U Hyaline Cast (Auto) (0-5) /lpf U Epithel Cells (Auto) (0-5) /lpf Urine Bacteria (Auto) (Negative) Blood Type Antibody Screen Crossmatch (1) Anemia Anemia type: unspecified type Qualified Code(s): D64.9 - Anemia, unspecified
--- NOTE | 2020-04-30 14:00 | Hospitalist Progress Note ---
Date of Service April 30, 2020 Assessment & Plan (1) GI bleed: Melena Symptomatic anemia Likely secondary to upper GI bleed due NSAIDs use and Coumadin induced coagulopathy S/P EGD: 4 cm hiatal hernia.LA Grade A reflux esophagitis. Non-bleeding gastric ulcer with a clean ulcer base (Eduardo Class III) likely NSAIDs related. Normal duodenal bulb and second portion of the duodenum. No specimens collected. Continue IV Protonix today Clear liquid diet Continue transition to p.o. Protonix twice daily tmw Needs repeat upper endoscopy in 2 months Advance diet as tolerated tomorrow continue to hold Coumadin for 2 more days Appreciate GI input Monitor H&H and transfuse PRBCs as needed Avoid NSAIDs Continue IV fluids Urinary Tract Infection Likely due to Neurogenic Bladder/Multiple Sclerosis H/O multiple UTIs Urine Cx:Gram Negative Bacilli Continue Rocephin Day # 2 Supratherapeutic INR INR revered with Vit K Monitor INR Needs follow-up with Coumadin clinic upon discharge NSVT 7 beats of Vtach noted on monitor Asymptomatic Follows with Cardiology as outpatient Started on Metoprolol 25md daily Monitor on Tele Hypokalemia Replete electrolytes as needed Normal Mag levels Rosacea On Chronic Doxycycline 100mg Q2D H/O Pulmonary embolism Coumadin on hold due to GI bleed Monitor INR Resume coumadin as able (2) Multiple sclerosis: H/o multiple sclerosis Affecting mostly the right lower extremity neurogenic bladder H/O Multiple UTIs MS stable Continue home meds (3) Neurogenic bladder: Stable (4) Breast cancer: History of breast cancer No acute issues DVT Px: SCDs for now Disposition PT/OT prior to discharge Admission and Anticipated Discharge Date Admission Date: April 29, 2020 Subjective Patient is seen and examined at bedside Feels a lot better today Had EGD earlier this morning Denies any chest pain, shortness of breath, dizziness, nausea, dysuria, hematuria No bleeding issues On IV Protonix drip Review of Systems Review of Systems: All systems reviewed & are unremarkable except as noted in HPI & below Physical Exam Physical Exam: Physical Exam: Vitals signs as noted above General Appearance:Moderately built and nourished, no apparent distress Head: normocephalic, Atraumatic Eyes: normal inspection, EOMI Neck: supple, Trachea midline Respiratory/Chest: Normal breath sounds, CTA, No accessory muscle use Cardiovascular: S1, S2, No murmur Abdomen/GI:Soft, Non tender, Bowel sounds present Extremities/Musculoskelatal:normal inspection, no edema Neurologic/Psych:AAOX3, Multiple Scleoris, Neurogenic bladder Skin: normal color, warm Results & Data Results & Data ([facility]) Vital Signs (Past 12 Hours) Vital Signs Temp Pulse Resp BP Pulse Ox 04/30/20 11:24 86 20 157/78 H 97 04/30/20 11:09 91 H 20 116/94 96 04/30/20 10:54 94 H 20 98/57 L 100 04/30/20 09:35 37.0 C 97 H 18 120/92 95 04/30/20 07:05 37.0 C 140 H 20 117/74 96 Laboratory Results Short CBC 04/29/20 04/29/20 04/30/20 Range/Units 15:10 18:35 05:21 WBC 15.33 H 7.16 (4.8-10.8) K/uL Hgb 7.2 L 6.5 L* 8.0 L (12.0-16.0) g/dL Hct 23.2 L 20.9 L* 24.1 L (37-47) % Plt Count 314 219 (130-400) K/uL 04/30/20 Range/Units 12:20 WBC (4.8-10.8) K/uL Hgb 8.4 L (12.0-16.0) g/dL Hct 25.3 L (37-47) % Plt Count (130-400) K/uL BMP 04/29/20 04/30/20 15:10 05:21 Sodium 140 144 Potassium 3.7 3.1 L D Chloride 108 H 109 H Carbon Dioxide 24 30 BUN 53 H 37 H Creatinine 0.91 0.81 Glucose 86 85 Calcium 8.6 7.6 L Cardiac Enzymes 04/29/20 Range/Units 15:10 Troponin I < 0.015 (0-0.045) ng/ml Liver Function 04/29/20 Range/Units 15:10 Total Bilirubin 0.3 (0.2-1) mg/dl AST 21 (15-37) U/L ALT 29 (12-78) U/L Alkaline Phosphatase 42 L (45-117) U/L Albumin 3.0 L (3.4-5.0) gm/dl Urine 06/02/20 Range/Units 18:33 Urine Color Yellow Urine Appearance Cloudy A (Clear) Urine pH 5.5 (4.5-7.5) Ur Specific [place] 1.041 H (1.000-1.030) Urine Protein Negative (Negative) Urine Glucose (UA) Negative (Negative)
[2020-04-30] MEDS: METOPROLOL SUCC 25MG EXT REL TAB PO SCH (15:10)
[2020-04-30] MEDS: NSS + 20MEQ KCL 20 MEQ/1,000 ML BAG IV SCH (18:09)
[2020-04-30 20:02] LABS: Hematocrit (blood only) 22.3 % (37-47); Hemoglobin 7.3 g/dL (12.0-16.0)
[2020-05-01] MEDS: PANTOprazole 40 MG in DEXTROSE 5% 100 ML IV SCH ×4 (02:11→14:10)
[2020-05-01 05:53] LABS: Hematocrit (blood only) 24.3 % (37-47); Hemoglobin 7.8 g/dL (12.0-16.0)
[2020-05-01 06:05] LABS: INR 1.2 (0.9-1.1); Prothrombin Time 12.4 Seconds (9.0-12.0)
[2020-05-01 06:51] LABS: BUN Creatinine Ratio 25.3 (10-20); Calcium 7.6 mg/dl (8.5-10.1); Creatinine Clr Calc Pharmacy 64.6 ml/min; Est GFR (African American) 98.8; Est GFR (Non-African American) 85.2; Potassium 3.6 mmol/L (3.5-5.1)
[2020-05-01] MEDS: OXYBUTYNIN CHLORIDE XL 5 MG TABCR PO SCH (07:28)
[2020-05-01] MEDS: TIZANIDINE HCL 4 MG TABLET PO SCH ×2 (07:28→13:26)
[2020-05-01] MEDS: predniSONE 10 MG TABLET PO SCH (07:29)
[2020-05-01] MEDS: CHOLECALCIFEROL 1,000 UNITS 25 MCG TAB PO SCH (07:29)
[2020-05-01] MEDS: ESCITALOPRAM OXALATE 20 MG TAB PO SCH (07:29)
[2020-05-01] MEDS: METOPROLOL SUCC 25MG EXT REL TAB PO SCH (07:29)
[2020-05-01] MEDS: cefTRIAXone SODIUM 1,000 MG in DEXTROSE 5% 50 ML IV SCH (07:40)
--- NOTE | 2020-05-01 11:43 | Gastroenterology Progress Note ---
Date of Service May 01, 2020 Assessment & Plan (1) Duodenal ulcer: Pt is a 69 y/o female with PMHX PE on Coumadin, who underwent EGD yesterday for melena and acute drop in HGB, which revealed LA grade A reflux esophagitis and nonbleeding duodenal ulcer. - Continue advancing diet. - Pt advised she should not take aspirin, ibuprofen, naproxen, or other non- steroidal anti-inflammatory drugs. - Use a proton pump inhibitor (Protonix/pantoprazole) 40 mg PO BID for 2 months. - Repeat upper endoscopy in 2 months to check healing and obtain biopsies. - Can resume Coumadin after 2 days if H/H remains stable. - GI will sign off; please call with questions Admission and Anticipated Discharge Date Admission Date: April 29, 2020 Supervising Physician Co-Signing Physician Notes I performed a history and physical examination of the patient today, including specifically on physical exam - soft abdomen. I have discussed the patient's management with the advanced practitioner. Please refer to the nurse practitioner's note for the documented findings and plan of care. Subjective Pt underwent EGD yesterday for melena, acute drop in HGB, supratherapeutic INR, demonstrating 4 cm HH, LA grade A reflux esophagitis, non-bleeding gastric ulcer with clean base, likely NSAID related; normal duodenal bulb. Labs with HGB 7.8 (baseline 11), crit 24, BUN 18. HD stable. Today feeling much better, no abd pain, n/v, no stool; no further GI output. Tolerated heart healthy breakfast. Results & Data ([facility]) Vital Signs (Past 12 Hours) Vital Signs Temp Pulse Pulse Resp BP Pulse Ox 05/01/20 11:34 36.8 C 84 20 104/71 96 05/01/20 08:00 77 05/01/20 07:20 37.1 C 82 18 111/75 96 05/01/20 04:11 36.8 C 84 18 93/55 L 93 04/30/20 23:49 37.1 C 82 20 103/68 94
[2020-05-01] MEDS: PANTOprazole 40 MG TAB PO SCH ×2 (15:00→21:06)
[2020-05-01 16:12] LABS: Hemoglobin 8.6 g/dL (12.0-16.0)
--- NOTE | 2020-05-01 18:05 | Hospitalist Progress Note ---
Date of Service May 01, 2020 Assessment & Plan (1) GI bleed: Melena Symptomatic anemia Likely secondary to upper GI bleed due NSAIDs use and Coumadin induced coagulopathy S/P EGD: 4 cm hiatal hernia.LA Grade A reflux esophagitis. Non-bleeding gastric ulcer with a clean ulcer base (Eduardo Class III) likely NSAIDs related. Normal duodenal bulb and second portion of the duodenum. No specimens collected. Continue IV Protonix transitioned to PO Protonix 40mg BID Needs repeat upper endoscopy in 2 months Tolerating regular diet Appreciate GI input Monitor H&H and transfuse PRBCs as needed Avoid NSAIDs Received IV fluids Plan to resume Coumadin in couple of days if hemoglobin remained stable Urinary Tract Infection Likely due to Neurogenic Bladder/Multiple Sclerosis H/O multiple UTIs Urine Cx:Klebsiella Continue Rocephin Day # 3 Plan to discharge on oral antibiotics Supratherapeutic INR INR revered with Vit K Monitor INR Needs follow-up with Coumadin clinic upon discharge NSVT 7 beats of Vtach noted on monitor Asymptomatic Follows with Cardiology as outpatient Started on Metoprolol 25md daily Monitor on Tele Hypokalemia Replete electrolytes as needed Normal Mag levels Rosacea On Chronic Doxycycline 100mg Q2D H/O Pulmonary embolism Coumadin on hold due to GI bleed Monitor INR:1.2 Resume coumadin as able (2) Multiple sclerosis: H/o multiple sclerosis Affecting mostly the right lower extremity neurogenic bladder H/O Multiple UTIs MS stable Continue home meds Not interested in Rehab placement (3) Neurogenic bladder: Stable (4) Breast cancer: History of breast cancer No acute issues DVT Px: SCDs for now Disposition Likely discharge home with Home Health Patient not interested in Rehab placement Admission and Anticipated Discharge Date Admission Date: April 29, 2020 Subjective Patient is seen and examined at bedside No new complaints Denies any bleeding issues Denies any chest pain, SOB, dizziness, nausea, dysuria, hematuria Refused Rehab placement Review of Systems Review of Systems: All systems reviewed & are unremarkable except as noted in HPI & below Physical Exam Physical Exam: Physical Exam: Vitals signs as noted above General Appearance:Moderately built and nourished, no apparent distress Head: normocephalic, Atraumatic Eyes: normal inspection, EOMI Neck: supple, Trachea midline Respiratory/Chest: Normal breath sounds, CTA, No accessory muscle use Cardiovascular: S1, S2, No murmur Abdomen/GI:Soft, Non tender, Bowel sounds present Extremities/Musculoskelatal:normal inspection, no edema Neurologic/Psych:AAOX3, Multiple Scleoris, Neurogenic bladder Skin: normal color, warm Results & Data Results & Data ([facility]) Vital Signs (Past 12 Hours) Vital Signs Temp Pulse Pulse Resp BP BP Pulse Ox 05/01/20 16:43 73 130/88 05/01/20 15:14 36.5 C 81 20 87/59 L 93 05/01/20 11:34 36.8 C 84 20 104/71 96 05/01/20 08:00 77 05/01/20 07:20 37.1 C 82 18 111/75 96 Laboratory Results Short CBC 04/30/20 05/01/20 05/01/20 Range/Units 19:54 05:41 16:06 Hgb 7.3 L 7.8 L 8.6 L (12.0-16.0) g/dL Hct 22.3 L 24.3 L 27.0 L (37-47) % BMP 05/01/20 05:41 Sodium 142 Potassium 3.6 D Chloride 113 H Carbon Dioxide 26 BUN 18 D Creatinine 0.73 Glucose 82 Calcium 7.6 L
[2020-05-01] MEDS: DOXYCYCLINE HYCLATE 100 MG CAP PO SCH (21:05)
[2020-05-02 07:58] LABS: Hematocrit (blood only) 26.6 % (37-47); Hemoglobin 8.4 g/dL (12.0-16.0)
[2020-05-02 08:09] LABS: INR 1.1 (0.9-1.1); Prothrombin Time 11.7 Seconds (9.0-12.0)
[2020-05-02 08:30] LABS: BUN Creatinine Ratio 24.4 (10-20); Calcium 8.2 mg/dl (8.5-10.1); Est GFR (African American) 87.1; Est GFR (Non-African American) 75.2; Potassium 3.5 mmol/L (3.5-5.1)
[2020-05-02] MEDS ORDERED: POTASSIUM CHLORIDE 20 MEQ TABCR PO ONE (09:00)
[2020-05-02] MEDS: ESCITALOPRAM OXALATE 20 MG TAB PO SCH (09:19)
[2020-05-02] MEDS: PANTOprazole 40 MG TAB PO SCH (09:19)
[2020-05-02] MEDS: cefTRIAXone SODIUM 1,000 MG in DEXTROSE 5% 50 ML IV SCH (09:19)
[2020-05-02] MEDS: OXYBUTYNIN CHLORIDE XL 5 MG TABCR PO SCH (09:19)
[2020-05-02] MEDS: predniSONE 10 MG TABLET PO SCH (09:19)
[2020-05-02] MEDS: METOPROLOL SUCC 25MG EXT REL TAB PO SCH (09:20)
[2020-05-02] MEDS: CHOLECALCIFEROL 1,000 UNITS 25 MCG TAB PO SCH (09:20)
--- NOTE | 2020-05-02 14:31 | Hospitalist Progress Note ---
Date of Service May 02, 2020 Assessment & Plan (1) GI bleed: Melena Symptomatic anemia Likely secondary to upper GI bleed due NSAIDs use and Coumadin induced coagulopathy S/P EGD: 4 cm hiatal hernia.LA Grade A reflux esophagitis. Non-bleeding gastric ulcer with a clean ulcer base (Eduardo Class III) likely NSAIDs related. Normal duodenal bulb and second portion of the duodenum. No specimens collected. Continue IV Protonix transitioned to PO Protonix 40mg BID Needs repeat upper endoscopy in 2 months Tolerating regular diet Appreciate GI input Monitor H&H and transfuse PRBCs as needed Avoid NSAIDs Received IV fluids Plan to resume Coumadin tomorrow Urinary Tract Infection Likely due to Neurogenic Bladder/Multiple Sclerosis H/O multiple UTIs Urine Cx:Klebsiella Continue Rocephin Day # 3 Plan to discharge on oral antibiotics Supratherapeutic INR INR revered with Vit K Monitor INR Needs follow-up with Coumadin clinic upon discharge NSVT 7 beats of Vtach noted on monitor Asymptomatic Follows with Cardiology as outpatient Started on Metoprolol 25md daily Monitor on Tele Needs follow-up with cardiology upon discharge Hypokalemia Replete electrolytes as needed Normal Mag levels Rosacea On Chronic Doxycycline 100mg Q2D H/O Pulmonary embolism Coumadin on hold due to GI bleed Monitor INR:1.2 Resume coumadin tomorrow (2) Multiple sclerosis: H/o multiple sclerosis Affecting mostly the right lower extremity neurogenic bladder H/O Multiple UTIs MS stable Continue home meds Not interested in Rehab placement (3) Neurogenic bladder: Stable (4) Breast cancer: History of breast cancer No acute issues DVT Px: SCDs for now Disposition Patient not interested in Rehab placement Plan to discharge home today Admission and Anticipated Discharge Date Admission Date: April 29, 2020 Subjective Patient is seen and examined at bedside Feels well today denies any events overnight Hemoglobin fairly stable Denies any bleeding issues Also denies any chest pain, SOB, dizziness, nausea, dysuria, hematuria Review of Systems Review of Systems: All systems reviewed & are unremarkable except as noted in HPI & below Physical Exam Physical Exam: Physical Exam: Vitals signs as noted above General Appearance:Moderately built and nourished, no apparent distress Head: normocephalic, Atraumatic Eyes: normal inspection, EOMI Neck: supple, Trachea midline Respiratory/Chest: Normal breath sounds, CTA, No accessory muscle use Cardiovascular: S1, S2, No murmur Abdomen/GI:Soft, Non tender, Bowel sounds present Extremities/Musculoskelatal:normal inspection, no edema Neurologic/Psych:AAOX3, Multiple Scleoris, Neurogenic bladder Skin: normal color, warm Results & Data Results & Data ([facility]) Vital Signs (Past 12 Hours) Vital Signs Temp Pulse Pulse Resp BP Pulse Ox 05/02/20 11:35 36.7 C 73 18 133/88 96 05/02/20 07:38 79 05/02/20 07:14 37.1 C 80 20 117/72 95 05/02/20 03:05 36.9 C 88 18 102/64 92 Laboratory Results Short CBC 05/01/20 05/02/20 Range/Units 16:06 07:26 Hgb 8.6 L 8.4 L (12.0-16.0) g/dL Hct 27.0 L 26.6 L (37-47) % BMP 05/02/20 07:26 Sodium 143 Potassium 3.5 Chloride 114 H Carbon Dioxide 25 BUN 20 H Creatinine 0.81 Glucose 79 Calcium 8.2 L
--- NOTE | 2020-05-02 14:42 | Discharge Summary ---
Date of Service May 02, 2020 Admission HPI Per Admitting Provider She is a 69-year-old female with significant past medical history including multiple sclerosis, history of pulmonary embolism on Coumadin, neurogenic bladder, osteoporosis and history of breast cancer apparently has been complaining of dizziness with ambulation since this morning. She remains weak and lethargic recently but she felt dizziness associated with some shakiness involving the extremities and nausea with ambulation this morning. She called 911 and is brought into the emergency room for further evaluation. She denies any increasing shortness of breath, any chest pain and/or palpitation, any fever and/or chills, any cough and/or sputum and any problem with the bowel habit. She denies any history of black stool and she has urinary frequency likely secondary to neurogenic bladder with recurrent attack of UTI. She was noted to have a very low hemoglobin of 7.2 in the emergency room and had a stool test came back positive for blood from that point he was started with intravenous Protonix and was advised admission. Apparently she has been on ibuprofen as an outpatient and also her INR was noted to be elevated at more than 9. No neurological symptoms noted Admission Exam Per Admitting Provider Physical Exam Physical Exam: Lying in bed comfortably Constitutional: + thin; no acute distress and not ill appearing Eyes: PERRL, conjunctivae normal, anicteric sclerae ENMT: external ear and nose normal, oropharynx normal Neck: trachea midline, no thyromegaly Respiratory: normal respiratory effort; no respiratory distress Auscultation: lungs clear to auscultation bilaterally Cardiovascular: Rate/Rhythm: regular rate and regular rhythm Heart Sounds: no murmur Gastrointestinal (Abdomen): Inspection/Auscultation: abdomen normal to inspection; abdomen not distended Percussion/Palpation: abdomen soft; abdomen nontender Rectal is done by ER physician and the stool is positive for blood Musculoskeletal: No acute arthritis involving any joint Neurologic: Has multiple sclerosis affecting mostly the right leg and neurogenic bladder Lymphatic: no cervical or axillary lymphadenopathy Principal Diagnosis Upper GI bleed Symptomatic anemia Urinary tract infection Supratherapeutic INR Nonsustained ventricular tachycardia Hypokalemia Discharge Data Allergies Allergy/AdvReac Type Severity Reaction Status Date / Time No Known Allergies Allergy Verified 04/30/20 10:12 Consultations 04/29/20 16:41 ED Decision to Admit Stat 04/29/20 17:35 Consult Gastroenterology Routine Procedures Performed Operation Date: 04/30/20 18:30 Actual Procedures p Esophagogastroduodenoscopy - Marisa Claros MD EGD: Findings: A 4 cm hiatal hernia was found. The proximal extent of the gastric folds (end of tubular esophagus) was 32 cm from the incisors. The hiatal narrowing was 36 cm from the incisors. LA Grade A (one or more mucosal breaks less than 5 mm, not extending between tops of 2 mucosal folds) esophagitis with no bleeding was found at the gastroesophageal junction. One non-bleeding cratered gastric ulcer with a clean ulcer base (Eduardo Class III) was found in the gastric antrum. The lesion was 15 mm in largest dimension. The duodenal bulb and second portion of the duodenum were normal. Impression: - 4 cm hiatal hernia. - LA Grade A reflux esophagitis. - Non-bleeding gastric ulcer with a clean ulcer base (Eduardo Class III) likely NSAIDs related. - Normal duodenal bulb and second portion of the duodenum. - No specimens collected. Recommendation: - [facility] to [facility] for [facility] care. - Clear liquid diet today then advance tomorrow as tolerated. - No aspirin, ibuprofen, naproxen, or other non-steroidal anti-inflammatory drugs. - Use a proton pump inhibitor IV daily today then change to Protonix (pantoprazole) 40 mg PO BID for 2 months. - Repeat upper endoscopy in 2 months to check healing and obtain biopsies. - Can resume Coumadin after 2 days if H/H remains stable. Ordered Studies 04/29/20 16:52 CT abd pelvis IV con only Stat Hospital Course (1) GI bleed: Melena Symptomatic anemia Likely secondary to upper GI bleed due NSAIDs use and Coumadin induced coagulopathy S/P EGD: 4 cm hiatal hernia.LA Grade A reflux esophagitis. Non-bleeding gastric ulcer with a clean ulcer base (Eduardo Class III) likely NSAIDs related. Normal duodenal bulb and second portion of the duodenum. No specimens collected. Continue IV Protonix transitioned to PO Protonix 40mg BID Needs repeat upper endoscopy in 2 months Tolerating regular diet Appreciate GI input Monitor H&H and transfuse PRBCs as needed Avoid NSAIDs Received IV fluids Plan to resume Coumadin tomorrow Urinary Tract Infection Likely due to Neurogenic Bladder/Multiple Sclerosis H/O multiple UTIs Urine Cx:Klebsiella Continue Rocephin Day # 3 Plan to discharge on oral antibiotics Supratherapeutic INR INR revered with Vit K Monitor INR Needs follow-up with Coumadin clinic upon discharge NSVT 7 beats of Vtach noted on monitor Asymptomatic Follows with Cardiology as outpatient Started on Metoprolol 25md daily Monitor on Tele Needs follow-up with cardiology upon discharge Hypokalemia Replete electrolytes as needed Normal Mag levels Rosacea On Chronic Doxycycline 100mg Q2D H/O Pulmonary embolism Coumadin on hold due to GI bleed Monitor INR:1.2 Resume coumadin tomorrow (2) Multiple sclerosis: H/o multiple sclerosis Affecting mostly the right lower extremity neurogenic bladder H/O Multiple UTIs MS stable Continue home meds Not interested in Rehab placement (3) Neurogenic bladder: Stable (4) Breast cancer: History of breast cancer No acute issues DVT Px: SCDs for now Disposition Patient not interested in Rehab placement Plan to discharge home today Total Time Total Time Spent Total Time Spent (In Minutes): 39 minutes Total Time Includes: Examination of the Patient, Discharge Planning, Medication Reconciliation, Communication With Other Providers and Other Discharge Plan Discharge Items Patient Disposition: Home - Self-Care Reason For Visit: GI BLEED Discharge Diagnosis: Upper GI bleed Symptomatic anemia Urinary tract infection Supratherapeutic INR Nonsustained ventricular tachycardia Hypokalemia Activity: Resume your previous activity Exercise/Sports: Gradually increase as tolerated Non-emergency contact: Primary Care Provider, Nursing Informatics Analyst and Route Rider Call non-emergency contact if: you have any medication questions, your symptoms worsen, your pain is not controlled, your pain is worsening, your pain is unusual for you, your pain is concerning for you and you have a fever Follow-up/Referrals: Jil Schmid DO [Primary Care Provider] - 05/06/20 9:20 am (05/06/2020 9:20 AM Provider Navneet Alvarez MD Department Family Practice [facility] will be calling you for an appointment. ) Diet: Heart Healthy Addtl Attending Provider Instructions: Follow-up with your primary care physician Dr. Jil Ray on May 06, 2020 at 9:20 AM Follow-up with your loom overhauler Dr. Claros for repeat Endoscopy in 2 months Follow-up with your toy electric train repairer as advised for further evaluation of ventricular tachycardia Follow-up with Coumadin clinic for management of your PT/INR/Coumadin dosing Complete antibiotic course Ceftin 300 mg twice a day for urinary tract infection --for 5 more days Avoid nonsteroidal anti-inflammatory drugs like ibuprofen, Naproxen etc as advised You can resume Coumadin in couple of days if no recurrence of bleeding as recommended by your loom overhauler. Seek immediate medical attention if your symptoms reoccur or worsen Pending Studies at Discharge: No Stand-Alone Forms: My [facility], Smoking Cessation Medications and DC Order Prescriptions: New pantoprazole 40 mg Tablet,Delayed Release (Dr/Ec) 40 mg PO BID 30 Days Qty: 60 RF: 1 metoprolol succinate 25 mg Tablet Extended Release 24 Hr 25 mg PO QAM 30 Days Qty: 30 RF: 0 cefdinir 300 mg capsule 300 mg PO BID 5 Days Qty: 10 RF: 0 Continued prednisone 10 mg tablet 10 mg PO QAM RF: 0 oxybutynin chloride 15 mg tablet extended release 24hr 15 mg PO QAM RF: 0 warfarin 5 mg tablet 7.5 mg PO DAILY@1600 RF: 0 cholecalciferol (vitamin D3) 1,000 unit capsule 1,000 units PO QAM RF: 0 escitalopram oxalate [Lexapro] 20 mg tablet 20 mg PO QAM RF: 0 tizanidine [Zanaflex] 4 mg capsule 4 mg PO QID RF: 0 Aubagio 7 mg tablet 14 mg PO DAILY@1600 RF: 0 doxycycline monohydrate 100 mg Capsule 100 mg PO Q2D@2200 RF: 0 Discontinued ibuprofen 200 mg Tablet 200 mg PO Q6H PRN (Reason: Pain) RF: 0 Discharge Orders: Discharge Order (Routine); Ordered 05/02/20 Ordered By: Fernando Armenta Admission Data Admit Date/Time: 04/29/20 17:40 Attending Provider: Fernando Armenta Admit Provider: Genesis Guerra Primary Care Provider: Jil Schmid Other Providers: Genesis Guerra ; Allie Denton ; Delmy Adrian ; Varun Mo ; Kesley Murray ; Fermin Kc ; Ralf Ingram ; Li Allred ; Merly Deluca ; Louis Mota ; Frederic Capps ; Herminia Hope ; Claudine Damon ; Danay Conway ; Blanca Dale ; Marisa Claros Other Interventions: Discharge Summary Assessment (RN) Last Done: 05/02/20 15:01 DC Date/Time DO NOT enter until pt leaves facility: 05/02/20 15:31
== END 2020-05-02 15:31 | disposition home or self-care (01) | DRG 813 ==
LOC: ED 13:24 → 2N 17:40 → SUATTDRO 17:40 → 2N 18:15

== ENCOUNTER 2021-07-06 15:04 | Inpatient (IN) ==
[2021-07-06 17:13] LABS: Basophils # (auto) 0.02 K/uL (0-0.2); Basophils % (auto) 0.2 %; Eosinophils # (auto) 0.01 K/uL (0-0.5); Eosinophils % (auto) 0.1 %; Hematocrit (blood only) 38.5 % (37-47); Hemoglobin 12.5 g/dL (12.0-16.0); Immature Granulocytes # (auto) 0.02 K/uL (0.00-0.02); Immature Granulocytes % (auto) 0.2 %; Lymphocytes # (auto) 0.57 K/uL (1.2-3.4); Lymphocytes % (auto) 6.8 %; Mean Corpuscular Hemoglobin 31.7 pg (25-34); Mean Corpuscular Hgb Conc 32.5 g/dL (32-36); Mean Corpuscular Volume 97.7 fL (80-100); Mean Platelet Volume 10.5 fL (7.4-10.4); Monocytes # (auto) 0.63 K/uL (0.11-0.59); Monocytes % (auto) 7.6 %; Neutrophils # (auto) 7.09 K/uL (1.4-6.5); Neutrophils % (auto) 85.1 %; Platelet Count 335 K/uL (130-400); RDW Coefficient of Variation 14.7 % (11.5-14.5); RDW Standard Deviation 51.9 fL (36.4-46.3); Red Blood Count 3.94 M/uL (4.2-5.4); White Blood Count 8.34 K/uL (4.8-10.8)
[2021-07-06 17:52] LABS: Albumin Globulin Ratio 0.8 (0.9-2); Bilirubin,Total 0.4 mg/dl (0.2-1); Calcium 8.6 mg/dl (8.5-10.1); Creatinine Clr Calc Pharmacy 51.6 ml/min; Est GFR (African American) 67.9 ml/min; Est GFR (Non-African American) 58.6 ml/min; Globulin 3.6 gm/dl (2.5-4.0); Thyroid Stimulating Hormone 1.11 uIu/ml (0.300-4.500); Total Protein 6.6 gm/dl (6.4-8.2); Troponin I 0.557 ng/ml (0-0.045)
--- NOTE | 2021-07-06 17:58 | XRay Report ---
XR chest 1V portable HISTORY: Atypical chest pain COMPARISON: 04/29/2020. FINDINGS: Retrocardiac density consistent with a moderate hiatus hernia. This remains unchanged. Left basilar linear densities consistent with subsegmental atelectasis or scarring. This is also unchange d. No pneumothorax. No pleural effusions. The heart is normal in size. There is mild central pulmonar y vascular congestion without overt edema. No focal lung consolidations to suggest pneumonia. IMPRESSION: 1. Mild central pulmonary vascular congestion without overt edema. 2. Moderate hiatus hernia, unchanged. ACT 112: Negative or not required by law. Electronically signed by: Jacky Saldana M.D. 07/06/2021 5:57 PM
--- NOTE | 2021-07-06 18:08 | Emergency Department Note ---
History of Present Illness General Chief complaint: Chest Pain Time Seen by Provider: 07/06/21 16:43 Source: patient Mode of arrival: EMS Limitations: no limitations History of Present Illness Provider complaint: chest pain Onset (ago): hour(s) Location: chest Radiation: non-radiation Exacerbated By: + none Associated symptoms: + denies other symptoms Treatments prior to arrival: none 70-year-old female presents emergency department complaining of chest pain. Patient states pain started while she was doing her exercise class in the pool doing resistance pool walking. Patient describes it as a central discomfort, nonradiating, no accompanying shortness of breath, nausea, or dizziness. Patient denies any prior similar episodes. Patient is anticoagulated due to history of PE/DVT. She states she has not previously had pain like this. Patient states after her exercise which she got out early, she went to her car, drove home, and while pain was improved did not completely resolved. She then decided to contact EMS and come to the emergency department for evaluation. Patient denies any recent illness or change in medications. Patient has no discomfort or pain at this time. Patient did recently have a GI bleed due to peptic ulcer disease. Patient is uncertain what her last INR was. Pt seen during a time of high acuity and national emergency pandemic while wearing PPE. Home Medications Medication Instructions Recorded Confirmed Type cholecalciferol (vitamin D3) 25 1,000 units PO QAM 09/18/18 07/06/21 History mcg (1,000 unit) capsule escitalopram oxalate 20 mg tablet 20 mg PO QAM tab 09/18/18 07/06/21 History (Lexapro) oxybutynin chloride 15 mg 15 mg PO QAM 09/18/18 07/06/21 History tablet,extended release 24 hr prednisone 10 mg tablet 10 mg PO QAM 09/18/18 07/06/21 History tizanidine 4 mg capsule (Zanaflex) 4 mg PO QID cap 09/12/19 07/06/21 History doxycycline monohydrate 100 mg 100 mg PO Q2D@2200 04/29/20 07/06/21 History capsule metoprolol succinate 25 mg 25 mg PO QAM 06/13/20 07/06/21 History tablet,extended release 24 hr (Toprol XL) cyanocobalamin (vitamin B-12) 1,000 mcg PO QAM 03/13/21 07/06/21 History 1,000 mcg tablet (Vitamin B-12) teriflunomide 14 mg tablet 14 mg PO QPM 03/13/21 07/06/21 History multivitamin with minerals 2 tab PO BID 07/06/21 07/06/21 History (Hair,Skin and Nails) omeprazole 40 mg capsule,delayed 40 mg PO QAM 07/06/21 07/06/21 History release warfarin 5 mg tablet 2.5 mg PO MO 07/06/21 07/06/21 History warfarin 5 mg tablet 5 mg PO SUTUWETHFRSA 07/06/21 07/06/21 History Allergies Allergy/AdvReac Type Severity Reaction Status Date / Time No Known Allergies Allergy Verified 07/06/21 16:38 Past Med/Surg History Medical History Anemia Breast cancer LEFT 17 YRS AGO Cardiac murmur SINCE --follows with Dr. Morgan Duodenal ulcer GERD (gastroesophageal reflux disease) History of DVT (deep vein thrombosis) History of GI bleed History of pulmonary embolism History of supraventricular tachycardia Hx of gastric ulcer Hx: UTI (urinary tract infection) Hypertension Multiple sclerosis Neurogenic bladder Osteoporosis Raynaud disease Surgical History H/O left mastectomy with lymph node removal History of appendectomy History of colonoscopy History of esophagogastroduodenoscopy (EGD) History of open reduction and internal fixation (ORIF) procedure "left hip" History of tooth extraction Presence of intrathecal pump baclofen pump in place S/P IVC filter S/P partial hysterectomy Family History Other No family history of adverse response to anesthesia Social History Smoking Status: Former smoker packs per day: 1; Years Smoked: 10; Second Hand Exposure: Yes (IN THE PAST); Hx Alcohol Use: No Hx Substance Use: No Preferred Language: Zambian Communication Ability: Effective Visual Impairment: No Limitations Hearing Ability: Normal [employer] Required: No Beliefs That Will Affect Care: None marital status: / Current Living Situation: Alone current occupational status: retired Feels Safe at Home: Yes Safety Concerns: Feels Safe At This Time Childhood Exposure to Second-Hand Smoke: Yes Assistive Devices: Glasses, Walker and Wheelchair Review of Systems A total of 10 systems reviewed and were otherwise negative All systems reviewed & are unremarkable except as noted in HPI & below Physical Exam Vital Signs Vital Signs - 24 hr 07/06/21 15:53 07/06/21 16:02 07/06/21 16:05 Temperature 36.5 C Temperature Source Oral Pulse Rate 88 74 86 Pulse Rate [Finger] Pulse Rate from SpO2 Sensor 87 Respiratory Rate 17 19 18 Blood Pressure 115/70 115/70 Blood Pressure [Left Arm] Blood Pressure Mean 85 85 Blood Pressure Mean [Left Arm] Pulse Oximetry 97 99 Oxygen Delivery Method Room Air Sepsis Recent Fever Within 48 Hours No Sepsis New/Unexplained Change in Mental Status N/A Sepsis Action Taken by Nursing No Action Required 07/06/21 17:03 07/06/21 17:25 07/06/21 17:31 Temperature Temperature Source Pulse Rate 72 75 Pulse Rate [Finger] 74 Pulse Rate from SpO2 Sensor Respiratory Rate 17 18 27 H Blood Pressure 151/102 H Blood Pressure [Left Arm] 140/81 Blood Pressure Mean 118 Blood Pressure Mean [Left Arm] 100 Pulse Oximetry 100 Oxygen Delivery Method Room Air Sepsis Recent Fever Within 48 Hours Sepsis New/Unexplained Change in Mental Status Sepsis Action Taken by Nursing 07/06/21 18:00 Temperature Temperature Source Pulse Rate 70 Pulse Rate [Finger] Pulse Rate from SpO2 Sensor 76 Respiratory Rate 16 Blood Pressure 152/128 H Blood Pressure [Left Arm] Blood Pressure Mean 136 Blood Pressure Mean [Left Arm] Pulse Oximetry 93 Oxygen Delivery Method Sepsis Recent Fever Within 48 Hours Sepsis New/Unexplained Change in Mental Status Sepsis Action Taken by Nursing GENERAL: alert, well appearing, well nourished, no distress, non-toxic EYE EXAM: normal conjunctiva, PERRL and EOM's grossly intact OROPHARYNX: no exudate, no erythema, lips, buccal mucosa, and tongue normal and mucous membranes are moist NECK: supple, no nuchal rigidity, no adenopathy, non-tender LUNGS: Clear to auscultation. Normal chest wall mechanics, no w/r/r HEART: no murmurs, S1 normal and S2 normal ABDOMEN: abdomen soft, non-tender, normo-active bowel sounds, no masses, no re bound or guarding. BACK: Back is symmetrical on inspection and there is no deformity, no midline te nderness, no CVA tenderness. SKIN: no rashes and no bruising UPPER EXTREMITIES: upper extremities are grossly normal. FROM, nml pulses b/l. LOWER EXTREMITIES: No pitting edema. FROM, nml pulses b/l. NEURO EXAM: Normal sensorium, cranial nerves II-XII grossly intact, normal speech, no gross weakness of arms, no gross weakness of legs. No pronator drift. Finger to nose intact. Gross sensation intact. Course Course 1801: Updated pt on results. No recurrent pain/discomfort. 1814: Discussed with [facility] hospitalist service. Administered Medications Doxycycline Hyclate (Doxycycline Hyclate 50 Mg Cap) 50 mg PO Q48H MICHELLE Stop: 08/05/21 21:59 Last Admin: 07/06/21 23:22 Dose: 50 mg Documented by: [id number] Tizanidine HCl (Tizanidine Hcl 4 Mg Tablet) 4 mg PO QID MICHELLE Stop: 08/05/21 20:59 Last Admin: 07/06/21 22:08 Dose: Not Given Documented by: [id number] Medical Decision Making Differential Diagnosis Differential diagnoses includes but is not limited to acute coronary syndrome, myocardial infarction, pericarditis, pulmonary embolus, aortic dissection, pneumonia, pneumothorax, musculoskeletal, shingles, esophageal. Medical Records Attestation: I reviewed the patient's medical records. Home Medications Current Medication List: was personally reviewed by me Laboratory Data Attestation: I reviewed the patient's lab results. Result diagrams: 07/06/21 16:40 07/06/21 18:46 Lab Results 07/06/21 07/06/21 07/06/21 Range/Units 16:40 16:40 16:40 WBC 8.34 (4.8-10.8) K/uL RBC 3.94 L (4.2-5.4) M/uL Hgb 12.5 (12.0-16.0) g/dL Hct 38.5 (37-47) % MCV 97.7 (80-100) fL MCH 31.7 (25-34) pg MCHC 32.5 (32-36) g/dL RDW Std Deviation 51.9 H (36.4-46.3) fL RDW Coeff of Tiffanie 14.7 H (11.5-14.5) % Plt Count 335 (130-400) K/uL MPV 10.5 H (7.4-10.4) fL Immature Gran % (Auto) 0.2 % Neut % (Auto) 85.1 % Lymph % (Auto) 6.8 % [place] % (Auto) 7.6 % Eos % (Auto) 0.1 % Baso % (Auto) 0.2 % Neut # (Auto) 7.09 H (1.4-6.5) K/uL Lymph # (Auto) 0.57 L (1.2-3.4) K/uL [place] # (Auto) 0.63 H (0.11-0.59) K/uL Eos # (Auto) 0.01 (0-0.5) K/uL Baso # (Auto) 0.02 (0-0.2) K/uL Immature Gran # (Auto) 0.02 (0.00-0.02) K/uL PT Cancelled INR Cancelled Sodium 139 (136-145) mmol/L Potassium (3.5-5.1) mmol/L Chloride 107 (98-107) mmol/L Carbon Dioxide 28 (21-32) mmol/L Anion Gap 4.0 (3-11) BUN 21 H (7-18) mg/dl Creatinine 0.99 (0.6-1.2) mg/dl Est Cr Clr Drug Dosing 51.6 ml/min Est GFR ( Amer) 67.9 ml/min Est GFR (Non-Af Amer) 58.6 ml/min BUN/Creatinine Ratio 21.0 H (10-20) Glucose 112 H (70-99) mg/dl Calcium 8.6 (8.5-10.1) mg/dl Magnesium (1.8-2.4) mg/dl Total Bilirubin 0.4 (0.2-1) mg/dl AST (15-37) U/L ALT 32 (12-78) U/L Alkaline Phosphatase 49 (45-117) U/L Troponin I 0.557 H* (0-0.045) ng/ml NT-Pro-B Natriuret Pep 454 (0-900) pg/ml Total Protein 6.6 (6.4-8.2) gm/dl Albumin 3.0 L (3.4-5.0) gm/dl Globulin 3.6 (2.5-4.0) gm/dl Albumin/Globulin Ratio 0.8 L (0.9-2) Lipase 68 L (73-393) U/L TSH 1.110 (0.300-4.500) uIu/ml Imaging Data Radiologist's Impression: Chest X-Ray 07/06/21 16:57 XR chest 1V portable HISTORY: Atypical chest pain COMPARISON: 04/29/2020. FINDINGS: Retrocardiac density consistent with a moderate hiatus hernia. This remains unchanged. Left basilar linear densities consistent with subsegmental atelectasis or scarring. This is also unchanged. No pneumothorax. No pleural effusions. The heart is normal in size. There is mild central pulmonary vascular congestion without overt edema. No focal lung consolidations to suggest pneumonia. IMPRESSION: 1. Mild central pulmonary vascular congestion without overt edema. 2. Moderate hiatus hernia, unchanged. ACT 112: Negative or not required by law. Electronically signed by: Jacky Saldana M.D. 07/06/2021 5:57 PM ECG Data Attestation: I personally reviewed and interpreted this ECG as follows: Indication: + chest pain Rate (beats per minute): 87 Rhythm: + normal sinus ECG Intervals/blocks: + Normal QRS and + Normal QT ECG [place]: + Normal ECG ST segments: + Normal ST segments MDM Narrative This is a 62-year-old female who presents due to a concerning episode of chest pain during exertion. Symptoms resolved prior to arrival. Patient was afebrile and hemodynamically stable. No ectopy or dysrhythmia noted on telemetry. No recent change in medications. Patient is anticoagulated. While patient's EKG was reassuring, patient found to have an elevated troponin. Patient had no recurring symptoms while in the emergency room. Patient not given aspirin due to recent history of peptic ulcer disease. Heparin also deferred due to supratherapeutic INR. Patient made aware of all results, verbalized understanding and was in agreement with plan. Case discussed with [facility] Hospitalist team for additional evaluation. Patient has previously seen cardiology, however cannot recall her last echo/stress test. We will attempt to obtain additional records. I do not suspect PE, cardiac tamponade, CHF, dissection, thoracic aneurysm, mediastinitis, perforation, active GI bleed, occult pneumonia, pleural effusion, pericardial effusion at this time. An order was placed for continuous cardiac monitoring. The monitor shows a rate of _80_ with _normal sinus_ rhythm. Impression & Plan Chest pain, Elevated troponin, Supratherapeutic INR Discharge Plan Visit Data Chief Complaint: Chest Pain ED Provider: Eloisa Quintana Discharge Problem: Chest pain, Elevated troponin, Supratherapeutic INR Patient Disposition: Admitted As Inpatient Discharge Instructions Interventions: ED Discharge Assessment Last Done: 07/06/21 19:45 Discharge Problem: Chest pain Qualifiers: Chest pain type: chest pain due to myocardial ischemia Ischemic chest pain type: unspecified angina pectoris type Qualified Code(s): I25.9 - Chronic ischemic heart disease, unspecified
[2021-07-06 19:04] LABS: Potassium 4.2 mmol/L (3.5-5.1)
[2021-07-06 19:09] LABS: Magnesium 2.2 mg/dl (1.8-2.4)
[2021-07-06 19:13] LABS: Partial Thromboplastin Ratio 2.1; Prothrombin Time 54.8 Seconds (9.0-12.0)
[2021-07-06 19:19] LABS: INR 6.3 (0.9-1.1); Partial Thromboplastin Time 55.7 Seconds (21.0-31.0)
--- NOTE | 2021-07-06 19:33 | History & Physical Report ---
Date of Service July 06, 2021 Assessment & Plan (1) Non-STEMI (non-ST elevated myocardial infarction): Plan: -admit to tele -patient presenting with reports of chest pressure while exercising in the swimming pool today -No risk factors for CAD identified, last DSE 2013 negative for ischemia -Initial troponin 0.557, EKG without acute ST changes, patient currently chest pain-free -Patient anticoagulated on Coumadin for hx DVT/PE, INR 6.3. No indication for heparin at this time -Trend troponin, resting echo in a.m. -Continue home metoprolol -N.p.o. after midnight -Cardiology consult, input appreciated (2) History of supraventricular tachycardia: Plan: -Controlled with metoprolol, continue (3) History of pulmonary embolism: (4) History of DVT (deep vein thrombosis): Plan: -On Coumadin, INR 6.3 -Hold Coumadin -Follow INR daily (5) Multiple sclerosis: Plan: -On chronic prednisone, teriflunomide, tizanidine , will continue -Also with intrathecal baclofen pump in place (follows with pain management clinic) (6) DVT prophylaxis: Plan: -Anticoagulated on Coumadin, INR 6.3 History of Present Illness Chief Complaint: Chest pain Primary Care Provider: Jil Schmid DO 70-year-old female with PMH MS on chronic prednisone and with baclofen pump in place, history of DVT and PE anticoagulated on Coumadin, history of SVT, history of GI bleeding, history of breast cancer s/p mastectomy, and other problems listed below who presents the ED for evaluation of chest pain. Patient reports she went to the swimming pool this morning per her usual routine. Reports that while walking in the pool, she developed a centralized chest pain. Patient describes the pain as a pressure and as a " elephant sitting on my chest". Rates the pain #8-9/10 at its worst. Reports that her jaw " did not feel right". She denies associated shortness of breath, diaphoresis, lightheadedness, dizziness, syncopal event. Reports that she rested for a bit and required the assistance of a wheelchair to get to her car. The pain persisted however patient drove home. Once arriving home, patient called 911 and was brought to the ED for further evaluation. Patient states that when she arrived to the ED, chest pain has resolved. Patient reports she otherwise has been feeling well recently. Denies any other recent illnesses, fevers, chills. No abdominal pain, vomiting, diarrhea. Denies urinary symptoms. In the ED, labs show troponin 0 0.557, EKG without acute ST changes. Patient is anticoagulant on Coumadin and INR 6.3. Patient is hemodynamically stable. She reports she is currently chest pain-free. Allergies Allergy/AdvReac Type Severity Reaction Status Date / Time No Known Allergies Allergy Verified 07/06/21 16:38 Home Medications Medication Instructions Recorded Confirmed Type cholecalciferol (vitamin D3) 25 1,000 units PO QAM 09/18/18 07/06/21 History mcg (1,000 unit) capsule escitalopram oxalate 20 mg tablet 20 mg PO QAM tab 09/18/18 07/06/21 History (Lexapro) oxybutynin chloride 15 mg 15 mg PO QAM 09/18/18 07/06/21 History tablet,extended release 24 hr prednisone 10 mg tablet 10 mg PO QAM 09/18/18 07/06/21 History tizanidine 4 mg capsule (Zanaflex) 4 mg PO QID cap 09/12/19 07/06/21 History doxycycline monohydrate 100 mg 100 mg PO Q2D@2200 04/29/20 07/06/21 History capsule metoprolol succinate 25 mg 25 mg PO QAM 06/13/20 07/06/21 History tablet,extended release 24 hr (Toprol XL) cyanocobalamin (vitamin B-12) 1,000 mcg PO QAM 03/13/21 07/06/21 History 1,000 mcg tablet (Vitamin B-12) teriflunomide 14 mg tablet 14 mg PO QPM 03/13/21 07/06/21 History multivitamin with minerals 2 tab PO BID 07/06/21 07/06/21 History (Hair,Skin and Nails) omeprazole 40 mg capsule,delayed 40 mg PO QAM 07/06/21 07/06/21 History release warfarin 5 mg tablet 2.5 mg PO MO 07/06/21 07/06/21 History warfarin 5 mg tablet 5 mg PO SUTUWETHFRSA 07/06/21 07/06/21 History Past Med/Surg History Medical History Anemia Breast cancer LEFT 17 YRS AGO Cardiac murmur SINCE --follows with Dr. Morgan Duodenal ulcer GERD (gastroesophageal reflux disease) History of DVT (deep vein thrombosis) History of GI bleed History of pulmonary embolism History of supraventricular tachycardia Hx of gastric ulcer Hx: UTI (urinary tract infection) Hypertension Multiple sclerosis Neurogenic bladder Osteoporosis Raynaud disease Surgical History H/O left mastectomy with lymph node removal History of appendectomy History of colonoscopy History of esophagogastroduodenoscopy (EGD) History of open reduction and internal fixation (ORIF) procedure "left hip" History of tooth extraction Presence of intrathecal pump baclofen pump in place S/P IVC filter S/P partial hysterectomy Family History Other No family history of adverse response to anesthesia Social History Smoking Status: Former smoker packs per day: 1; Years Smoked: 10; Second Hand Exposure: Yes (IN THE PAST); Hx Alcohol Use: No Hx Substance Use: No Preferred Language: Sammarinese Communication Ability: Effective Visual Impairment: No Limitations Hearing Ability: Normal [employer] Work[employer] Required: No Beliefs That Will Affect Care: None marital status: / Current Living Situation: Alone current occupational status: retired How many Children do You have: 3 Feels Safe at Home: Yes Childhood Exposure to Second-Hand Smoke: Yes Assistive Devices: None Review of Systems Review of Systems: ROS per HPI, all other systems reviewed and negative Physical Exam Constitutional: WD/WN, vitals as above Eyes: PERRL, conjunctivae normal, anicteric sclerae ENMT: external ear and nose normal, oropharynx normal Respiratory: normal respiratory effort, lungs clear to auscultation Cardiovascular: Rate/Rhythm: regular rate and regular rhythm Vessels: normal peripheral pulses Extremities: no edema Gastrointestinal (Abdomen): normal bowel sounds, soft, nontender, no hepatosplenomegaly Musculoskeletal: no cyanosis or clubbing, extremities motor strength 5/5 Skin: no rashes, warm and dry Neurologic: PERRL, EOMI, accommodation nl, no face palsy, no dysarthria Psychiatric: A+Ox3, euthymic affect Results & Data Results & Data ([facility]) Vital Signs (Past 12 Hours) Vital Signs Temp Pulse Pulse Resp BP BP Pulse Ox 07/06/21 18:00 70 16 152/128 H 93 07/06/21 17:31 75 27 H 151/102 H 07/06/21 17:25 74 18 140/81 100 07/06/21 17:03 72 17 07/06/21 16:05 36.5 C 86 18 115/70 99 07/06/21 16:02 74 19 115/70 07/06/21 15:53 88 17 97 Laboratory Results Short CBC 07/06/21 Range/Units 16:40 WBC 8.34 (4.8-10.8) K/uL Hgb 12.5 (12.0-16.0) g/dL Hct 38.5 (37-47) % Plt Count 335 (130-400) K/uL BMP 07/06/21 07/06/21 16:40 18:46 Sodium 139 Potassium 4.2 Chloride 107 Carbon Dioxide 28 BUN 21 H Creatinine 0.99 Glucose 112 H Calcium 8.6 Cardiac Enzymes 07/06/21 Range/Units 16:40 Troponin I 0.557 H* (0-0.045) ng/ml Liver Function 07/06/21 07/06/21 Range/Units 16:40 18:46 Total Bilirubin 0.4 (0.2-1) mg/dl AST 26 (15-37) U/L ALT 32 (12-78) U/L Alkaline Phosphatase 49 (45-117) U/L Albumin 3.0 L (3.4-5.0) gm/dl Diagnostic Findings Chest X-Ray 07/06/21 16:57 XR chest 1V portable HISTORY: Atypical chest pain COMPARISON: 04/29/2020. FINDINGS: Retrocardiac density consistent with a moderate hiatus hernia. This remains unchanged. Left basilar linear densities consistent with subsegmental atelectasis or scarring. This is also unchanged. No pneumothorax. No pleural effusions. The heart is normal in size. There is mild central pulmonary vascular congestion without overt edema. No focal lung consolidations to suggest pneumonia. IMPRESSION: 1. Mild central pulmonary vascular congestion without overt edema. 2. Moderate hiatus hernia, unchanged. ACT 112: Negative or not required by law. Electronically signed by: Jacky Saldana M.D. 07/06/2021 5:57 PM Code Status & VTE Plan VTE Prophylaxis Plan VTE Prophylaxis will be ordered: No Supervising Physician Co-Signing Physician Notes Patient seen and examined by me, care coordinated with KEVIN Bravo, please refer to her note above for further detail. Pt is a 70 y/o female with multiple sclerosis, history of DVT and PE anticoagulated on Coumadin, history of SVT, history of GI bleeding, who presents with chest pain on exertion. Patient had significant chest pain bilaterally, radiating to her jaw, while exercising in the pool. Patient reports that she had this pain at least for an hour. It resolved at rest when she was sitting down. Denies having any associated symptoms such as shortness of breath dizziness lightheadedness or diaphoresis or nausea. Currently in ER chest pain- free however elevated troponin at 0.5. Patient is anticoagulated with Coumadin, current INR supratherapeutic at 6.3. She is currently sitting up in bed, in no acute distress. She is alert and oriented answering questions appropriately. Heart sounds regular. Lung sounds CTAB without any wheezing rhonchi or crackles. Abdomen soft, nontender nondistended with positive bowel sounds. There is no significant lower extremity edema noted, some chronic changes (venous stasis noted). Hold Coumadin for now given supratherapeutic INR. Continue to closely monitor on telemetry. Echo ordered and cardiology consulted. Last Johnson MD
[2021-07-06] MEDS ORDERED: NITROGLYCERIN SL 0.4 MG/TAB TAB SL PRN (20:31)
[2021-07-06] MEDS ORDERED: ACETAMINOPHEN 325 MG TAB PO PRN (20:31)
[2021-07-06] MEDS ORDERED: tiZANidine HCL 4 MG TABLET PO SCH (21:00)
[2021-07-06] MEDS: DOXYCYCLINE HYCLATE 50 MG CAP PO SCH (23:22)
[2021-07-06] MEDS ORDERED: MELATONIN 3 MG TAB PO PRN (23:27)
[2021-07-07 06:39] LABS: Hematocrit (blood only) 35.8 % (37-47); Hemoglobin 11.5 g/dL (12.0-16.0); Mean Corpuscular Hemoglobin 31.3 pg (25-34); Mean Corpuscular Hgb Conc 32.1 g/dL (32-36); Mean Corpuscular Volume 97.5 fL (80-100); Mean Platelet Volume 9.8 fL (7.4-10.4); Platelet Count 316 K/uL (130-400); RDW Coefficient of Variation 14.7 % (11.5-14.5); RDW Standard Deviation 52.8 fL (36.4-46.3); Red Blood Count 3.67 M/uL (4.2-5.4); White Blood Count 3.94 K/uL (4.8-10.8)
[2021-07-07 07:13] LABS: BUN Creatinine Ratio 23.5 (10-20); Calcium 8.3 mg/dl (8.5-10.1); Creatinine Clr Calc Pharmacy 63.7 ml/min; Est GFR (African American) 89.1 ml/min; Est GFR (Non-African American) 76.9 ml/min; Potassium 4.2 mmol/L (3.5-5.1)
[2021-07-07] MEDS ORDERED: Nursing to Pharmacy Communication SCH (07:15)
[2021-07-07 07:24] LABS: INR 5.5 (0.9-1.1); Prothrombin Time 48.7 Seconds (9.0-12.0)
--- NOTE | 2021-07-07 07:51 | Hospitalist Progress Note ---
Date of Service July 07, 2021 Assessment & Plan (1) Non-STEMI (non-ST elevated myocardial infarction): Plan: -patient presenting with reports of chest pressure while exercising in the swimming pool -No risk factors for CAD identified, last DSE 2013 negative for ischemia -Initial troponin 0.557, EKG without acute ST changes, patient currently chest pain-free -Patient anticoagulated on Coumadin for hx DVT/PE, INR 6.3 on admission. No indication for heparin at this time -Troponin peaked at 1 overnight, now downtrended to 0.9 -INR still supratherapeutic at 5.5, give vitamin K p.o. by cardiology -Echo - normal LV chamber size with mild concentric LVH. Normal LV systolic function, EF 60 - 65%. No segmental LV wall motion abnormalities are noted. Grade 1 diastolic dysfunction. Aortic valve sclerosis mild without significant aortic valvular stenosis. Mild atherosclerotic plaques in the ascending aorta. -Continue home metoprolol -N.p.o. after midnight -Cardiology consulted -plan for cardiac cath tomorrow (2) History of supraventricular tachycardia: Plan: -Controlled with metoprolol, continue (3) History of pulmonary embolism: (4) History of DVT (deep vein thrombosis): Plan: -On Coumadin, INR 6.3 on admission current INR 5.5 -give p.o. vitamin K per cardiology -Hold Coumadin -Follow INR daily (5) Multiple sclerosis: Plan: -On chronic prednisone, teriflunomide, tizanidine , will continue -Also with intrathecal baclofen pump in place (follows with pain management clinic) (6) DVT prophylaxis: Plan: -Anticoagulated on Coumadin Admission and Anticipated Discharge Date Admission Date: July 06, 2021 Subjective Patient seen in follow-up of NSTEMI Currently she is lying in bed, in no acute distress, chest pain-free Also denies any shortness of breath dizziness lightheadedness but says she has not been moving much since she came to hospital Seen by cardiology, plan for cardiac cath tomorrow Review of Systems Review of Systems: All systems reviewed & are unremarkable except as noted in Subjective Physical Exam Physical Exam: Constitutional: WD/WN, vitals as above Eyes: PERRL, EOMI, conjunctivae normal, anicteric sclerae ENMT: external ear and nose normal, oropharynx normal Respiratory: normal respiratory effort, lungs clear to auscultation Cardiovascular: Rate/Rhythm: regular rate and regular rhythm Vessels: normal peripheral pulses Extremities: no edema Gastrointestinal (Abdomen): normal bowel sounds, soft, nontender Musculoskeletal: moves extremities, no significant LE edema Skin: warm and dry, venous stasis changes noted LE b/l Neurologic: PERRL, EOMI, no face palsy, no dysarthria, moves extremities Psychiatric: A+Ox3, euthymic affect Results & Data Results & Data ([facility]) Vital Signs (Past 12 Hours) Vital Signs Temp Pulse Resp BP Pulse Ox 07/07/21 03:26 36.5 C 85 18 114/77 96 07/06/21 23:12 36.5 C 69 18 113/67 94 07/06/21 21:00 152/96 H 07/06/21 20:02 36.3 C L 82 17 163/108 H 99 Laboratory Results 07/07/21 07/07/21 07/07/21 Range/Units 06:10 06:10 06:10 WBC 3.94 L (4.8-10.8) K/uL RBC 3.67 L (4.2-5.4) M/uL Hgb 11.5 L (12.0-16.0) g/dL Hct 35.8 L (37-47) % MCV 97.5 (80-100) fL MCH 31.3 (25-34) pg MCHC 32.1 (32-36) g/dL RDW Std Deviation 52.8 H (36.4-46.3) fL RDW Coeff of Tiffanie 14.7 H (11.5-14.5) % Plt Count 316 (130-400) K/uL MPV 9.8 (7.4-10.4) fL Immature Gran % (Auto) % Neut % (Auto) % Lymph % (Auto) % [place] % (Auto) % Eos % (Auto) % Baso % (Auto) % Neut # (Auto) (1.4-6.5) K/uL Lymph # (Auto) (1.2-3.4) K/uL [place] # (Auto) (0.11-0.59) K/uL Eos # (Auto) (0-0.5) K/uL Baso # (Auto) (0-0.2) K/uL Immature Gran # (Auto) (0.00-0.02) K/uL PT 48.7 H INR 5.5 H APTT (21.0-31.0) Seconds PTT Ratio Sodium 141 (136-145) mmol/L Potassium 4.2 (3.5-5.1) mmol/L Chloride 110 H (98-107) mmol/L Carbon Dioxide 28 (21-32) mmol/L Anion Gap 3.0 (3-11) BUN 19 H (7-18) mg/dl Creatinine 0.79 (0.6-1.2) mg/dl Est Cr Clr Drug Dosing 63.7 ml/min Est GFR ( Amer) 89.1 ml/min Est GFR (Non-Af Amer) 76.9 ml/min BUN/Creatinine Ratio 23.5 H (10-20) Glucose 80 (70-99) mg/dl Calcium 8.3 L (8.5-10.1) mg/dl Magnesium (1.8-2.4) mg/dl Total Bilirubin (0.2-1) mg/dl AST (15-37) U/L ALT (12-78) U/L Alkaline Phosphatase (45-117) U/L Troponin I (0-0.045) ng/ml NT-Pro-B Natriuret Pep (0-900) pg/ml Total Protein (6.4-8.2) gm/dl Albumin (3.4-5.0) gm/dl Globulin (2.5-4.0) gm/dl Albumin/Globulin Ratio (0.9-2) Lipase (73-393) U/L TSH (0.300-4.500) uIu/ml COVID-19 Eval Order SARS-CoV-2 (PCR) (Negative) 07/07/21 07/06/21 07/06/21 Range/Units 02:00 Unknown Unknown WBC (4.8-10.8) K/uL RBC (4.2-5.4) M/uL Hgb (12.0-16.0) g/dL Hct (37-47) % MCV (80-100) fL MCH (25-34) pg MCHC (32-36) g/dL RDW Std Deviation (36.4-46.3) fL RDW Coeff of Tiffanie (11.5-14.5) % Plt Count (130-400) K/uL MPV (7.4-10.4) fL Immature Gran % (Auto) % Neut % (Auto) % Lymph % (Auto) % [place] % (Auto) % Eos % (Auto) % Baso % (Auto) % Neut # (Auto) (1.4-6.5) K/uL Lymph # (Auto) (1.2-3.4) K/uL [place] # (Auto) (0.11-0.59) K/uL Eos # (Auto) (0-0.5) K/uL Baso # (Auto) (0-0.2) K/uL Immature Gran # (Auto) (0.00-0.02) K/uL PT INR APTT (21.0-31.0) Seconds PTT Ratio Sodium (136-145) mmol/L Potassium (3.5-5.1) mmol/L Chloride (98-107) mmol/L Carbon Dioxide (21-32) mmol/L Anion Gap (3-11) BUN (7-18) mg/dl Creatinine (0.6-1.2) mg/dl Est Cr Clr Drug Dosing ml/min Est GFR ( Amer) ml/min Est GFR (Non-Af Amer) ml/min BUN/Creatinine Ratio (10-20) Glucose (70-99) mg/dl Calcium (8.5-10.1) mg/dl Magnesium (1.8-2.4) mg/dl Total Bilirubin (0.2-1) mg/dl AST (15-37) U/L ALT (12-78) U/L Alkaline Phosphatase (45-117) U/L Troponin I 0.925 H* (0-0.045) ng/ml NT-Pro-B Natriuret Pep (0-900) pg/ml Total Protein (6.4-8.2) gm/dl Albumin (3.4-5.0) gm/dl Globulin (2.5-4.0) gm/dl Albumin/Globulin Ratio (0.9-2) Lipase (73-393) U/L TSH (0.300-4.500) uIu/ml COVID-19 Eval Order Covid19 at [facility] SARS-CoV-2 (PCR) NEGATIVE (Negative) 07/06/21 07/06/21 07/06/21 Range/Units 21:03 18:46 18:46 WBC (4.8-10.8) K/uL RBC (4.2-5.4) M/uL Hgb (12.0-16.0) g/dL Hct (37-47) % MCV (80-100) fL MCH (25-34) pg MCHC (32-36) g/dL RDW Std Deviation (36.4-46.3) fL RDW Coeff of Tiffanie (11.5-14.5) % Plt Count (130-400) K/uL MPV (7.4-10.4) fL Immature Gran % (Auto) % Neut % (Auto) % Lymph % (Auto) % [place] % (Auto) % Eos % (Auto) % Baso % (Auto) % Neut # (Auto) (1.4-6.5) K/uL Lymph # (Auto) (1.2-3.4) K/uL [place] # (Auto) (0.11-0.59) K/uL Eos # (Auto) (0-0.5) K/uL Baso # (Auto) (0-0.2) K/uL Immature Gran # (Auto) (0.00-0.02) K/uL PT 54.8 H INR 6.3 H* APTT 55.7 H* (21.0-31.0) Seconds PTT Ratio 2.1 Sodium (136-145) mmol/L Potassium 4.2 (3.5-5.1) mmol/L Chloride (98-107) mmol/L Carbon Dioxide (21-32) mmol/L Anion Gap (3-11) BUN (7-18) mg/dl Creatinine (0.6-1.2) mg/dl Est Cr Clr Drug Dosing ml/min Est GFR ( Amer) ml/min Est GFR (Non-Af Amer) ml/min BUN/Creatinine Ratio (10-20) Glucose (70-99) mg/dl Calcium (8.5-10.1) mg/dl Magnesium 2.2 (1.8-2.4) mg/dl Total Bilirubin (0.2-1) mg/dl AST 26 (15-37) U/L ALT (12-78) U/L Alkaline Phosphatase (45-117) U/L Troponin I 1.080 H* (0-0.045) ng/ml NT-Pro-B Natriuret Pep (0-900) pg/ml Total Protein (6.4-8.2) gm/dl Albumin (3.4-5.0) gm/dl Globulin (2.5-4.0) gm/dl Albumin/Globulin Ratio (0.9-2) Lipase (73-393) U/L TSH (0.300-4.500) uIu/ml COVID-19 Eval Order SARS-CoV-2 (PCR) (Negative) 07/06/21 07/06/21 07/06/21 Range/Units 16:40 16:40 16:40 WBC 8.34 (4.8-10.8) K/uL RBC 3.94 L (4.2-5.4) M/uL Hgb 12.5 (12.0-16.0) g/dL Hct 38.5 (37-47) % MCV 97.7 (80-100) fL MCH 31.7 (25-34) pg MCHC 32.5 (32-36) g/dL RDW Std Deviation 51.9 H (36.4-46.3) fL RDW Coeff of Tiffanie 14.7 H (11.5-14.5) % Plt Count 335 (130-400) K/uL MPV 10.5 H (7.4-10.4) fL Immature Gran % (Auto) 0.2 % Neut % (Auto) 85.1 % Lymph % (Auto) 6.8 % [place] % (Auto) 7.6 % Eos % (Auto) 0.1 % Baso % (Auto) 0.2 % Neut # (Auto) 7.09 H (1.4-6.5) K/uL Lymph # (Auto) 0.57 L (1.2-3.4) K/uL [place] # (Auto) 0.63 H (0.11-0.59) K/uL Eos # (Auto) 0.01 (0-0.5) K/uL Baso # (Auto) 0.02 (0-0.2) K/uL Immature Gran # (Auto) 0.02 (0.00-0.02) K/uL PT Cancelled INR Cancelled APTT (21.0-31.0) Seconds PTT Ratio Sodium 139 (136-145) mmol/L Potassium (3.5-5.1) mmol/L Chloride 107 (98-107) mmol/L Carbon Dioxide 28 (21-32) mmol/L Anion Gap 4.0 (3-11) BUN 21 H (7-18) mg/dl Creatinine 0.99 (0.6-1.2) mg/dl Est Cr Clr Drug Dosing 51.6 ml/min Est GFR ( Amer) 67.9 ml/min Est GFR (Non-Af Amer) 58.6 ml/min BUN/Creatinine Ratio 21.0 H (10-20) Glucose 112 H (70-99) mg/dl Calcium 8.6 (8.5-10.1) mg/dl Magnesium (1.8-2.4) mg/dl Total Bilirubin 0.4 (0.2-1) mg/dl AST (15-37) U/L ALT 32 (12-78) U/L Alkaline Phosphatase 49 (45-117) U/L Troponin I 0.557 H* (0-0.045) ng/ml NT-Pro-B Natriuret Pep 454 (0-900) pg/ml Total Protein 6.6 (6.4-8.2) gm/dl Albumin 3.0 L (3.4-5.0) gm/dl Globulin 3.6 (2.5-4.0) gm/dl Albumin/Globulin Ratio 0.8 L (0.9-2) Lipase 68 L (73-393) U/L TSH 1.110 (0.300-4.500) uIu/ml COVID-19 Eval Order SARS-CoV-2 (PCR) (Negative) Medications Administered Current Inpatient Medications Acetaminophen (Acetaminophen 325 Mg Tab) 650 mg PO Q4H PRN PRN Reason: Pain or Fever Stop: 08/05/21 20:30 Cyanocobalamin (Cyanocobalamin 500 Mcg Tablet (Vitamin B-12)) 1,000 mcg PO QAM MICHELLE Stop: 08/06/21 08:59 Doxycycline Hyclate (Doxycycline Hyclate 50 Mg Cap) 50 mg PO Q48H MICHELLE Stop: 08/05/21 21:59 Last Admin: 07/06/21 23:22 Dose: 50 mg Documented by: Escitalopram Oxalate (Escitalopram Oxalate 20 Mg Tab) [facility] Stop: 08/06/21 08:59 Melatonin (Melatonin 3 Mg Tab) 3 mg PO HS PRN PRN Reason: Sleep Stop: 08/05/21 23:26 Metoprolol Succinate (Metoprolol Succ 25mg Ext Rel Tab) [facility] Stop: 08/06/21 08:59 Miscellaneous (Teriflunomide: Order Awaiting Action) 1 ea N/A QS [facility] Stop: 08/06/21 07:59 Nitroglycerin (Nitroglycerin Sl 0.4 Mg/Tab Tab) 0.4 mg SL UD PRN PRN Reason: Chest Pain Stop: 08/05/21 20:30 Oxybutynin Chloride (Oxybutynin Chloride Xl 5 Mg Tabcr) 15 mg PO [facility] Stop: 08/06/21 08:59 Pantoprazole Sodium (Pantoprazole 40 Mg Tab) 40 mg PO [facility] Stop: 08/06/21 08:59 Prednisone (Prednisone 10 Mg Tablet) 10 mg PO [facility] Stop: 08/06/21 08:59 Tizanidine HCl (Tizanidine Hcl 4 Mg Tablet) 4 mg PO QID@0800,1200,1400,1613 [facility] Stop: 08/06/21 07:59 Vitamin D (Cholecalciferol 1,000 Units 25 Mcg Tab) 1,000 units PO [facility] Stop: 08/06/21 08:59
[2021-07-07] MEDS: METOPROLOL SUCC 25MG EXT REL TAB PO SCH (09:11)
[2021-07-07] MEDS: PANTOprazole 40 MG TAB PO SCH (09:11)
[2021-07-07] MEDS: CYANOCOBALAMIN 500 MCG TABLET (VITAMIN B-12) PO SCH (09:12)
[2021-07-07] MEDS: tiZANidine HCL 4 MG TABLET PO SCH ×4 (09:12→17:45)
[2021-07-07] MEDS: ESCITALOPRAM OXALATE 20 MG TAB PO SCH (09:12)
[2021-07-07] MEDS: CHOLECALCIFEROL 1,000 UNITS 25 MCG TAB PO SCH (09:12)
[2021-07-07] MEDS: predniSONE 10 MG TABLET PO SCH (09:13)
[2021-07-07] MEDS: OXYBUTYNIN CHLORIDE XL 5 MG TABCR PO SCH (09:13)
[2021-07-07] MEDS ORDERED: PHYTONADIONE 5 MG TAB PO STA (10:33)
--- NOTE | 2021-07-07 10:51 | Cardiology Consultation ---
Date of Consultation July 07, 2021 Assessment & Plan (1) Non-STEMI (non-ST elevated myocardial infarction): (2) Chest pain: (3) Elevated troponin: (4) Supratherapeutic INR: (5) History of pulmonary embolism: (6) History of DVT (deep vein thrombosis): (7) Multiple sclerosis: It was my pleasure to see Mrs. Shelby in cardiac consultation today. The description of her chest discomfort is suspicious for unstable angina. Her EKG and echocardiogram are both unremarkable, however, she did have a troponin peak over 1. Given this finding I believe most prudent course of action will be for direct visualization of her coronary anatomy via cardiac catheterization. Unfortunately, her INR supratherapeutic today. Luckily she is now chest pain-free so I will plan on giving her 5 mg of oral vitamin K now and recheck her INR later this evening and tomorrow morning. We will plan on proceeding to cardiac catheterization with Dr. Mckinnon in the a.m. She is now pain-free so no medication changes will be made. History of Present Illness Reason for Consultation: NSTEMI Requesting Physician: Dr. Goyal Attending Physician: J Carlos Johnson MD History of Present Illness It was my pleasure to see Mrs. Shelby in cardiac consultation today July 06, 2021. She is a very pleasant 62-year-old woman who routinely follows with Dr. Morgan of our cardiology practice for her history of PSVT. She presented to [facility] on 07/06/2021 with complaints of chest pain. She states that she was going through her normal routine and was exercising at the local pool when she suddenly developed chest discomfort. She described it as a left-sided pressure sensation that was associated with some mild shortness of breath. She states that the pressure became quite severe and she tried to rest. After several minutes the pain persisted. She then drove home and the pain persisted for over an hour and EMS was summoned. Upon their arrival the discomfort was starting to ease and when she was given nitroglycerin her discomfort pre much resolved. She denied any associated radiation of the discomfort, diaphoresis, nausea or lightheadedness. She denies any previous similar episodes. She states that she has had some mild chest discomfort off and on overnight but nothing nearly as significant and is currently pain-free at rest. Past medical history as per most recent outpatient cardiology clinic note: 1. PSVT and PVC's 2 History of GI bleed due to Coumadin and NSAIDs 3. History of DVT and pulmonary emboli on chronic anticoagulation 4. Multiple sclerosis 5. Nonspecific dizziness and heart palpitations when stooping forward. Allergies Allergy/AdvReac Type Severity Reaction Status Date / Time No Known Allergies Allergy Verified 07/06/21 16:38 Home Medications Medication Instructions Recorded Confirmed Type cholecalciferol (vitamin D3) 25 1,000 units PO QAM 09/18/18 07/06/21 History mcg (1,000 unit) capsule escitalopram oxalate 20 mg tablet 20 mg PO QAM tab 09/18/18 07/06/21 History (Lexapro) oxybutynin chloride 15 mg 15 mg PO QAM 09/18/18 07/06/21 History tablet,extended release 24 hr prednisone 10 mg tablet 10 mg PO QAM 09/18/18 07/06/21 History tizanidine 4 mg capsule (Zanaflex) 4 mg PO QID cap 09/12/19 07/06/21 History doxycycline monohydrate 100 mg 100 mg PO Q2D@2200 04/29/20 07/06/21 History capsule metoprolol succinate 25 mg 25 mg PO QAM 06/13/20 07/06/21 History tablet,extended release 24 hr (Toprol XL) cyanocobalamin (vitamin B-12) 1,000 mcg PO QAM 03/13/21 07/06/21 History 1,000 mcg tablet (Vitamin B-12) teriflunomide 14 mg tablet 14 mg PO QPM 03/13/21 07/06/21 History multivitamin with minerals 2 tab PO BID 07/06/21 07/06/21 History (Hair,Skin and Nails) omeprazole 40 mg capsule,delayed 40 mg PO QAM 07/06/21 07/06/21 History release warfarin 5 mg tablet 2.5 mg PO MO 07/06/21 07/06/21 History warfarin 5 mg tablet 5 mg PO SUTUWETHFRSA 07/06/21 07/06/21 History Patient History Medical History Anemia Breast cancer LEFT 17 YRS AGO Cardiac murmur SINCE --follows with Dr. Morgan Duodenal ulcer GERD (gastroesophageal reflux disease) History of DVT (deep vein thrombosis) History of GI bleed History of pulmonary embolism History of supraventricular tachycardia Hx of gastric ulcer Hx: UTI (urinary tract infection) Hypertension Multiple sclerosis Neurogenic bladder Osteoporosis Raynaud disease Surgical History H/O left mastectomy with lymph node removal History of appendectomy History of colonoscopy History of esophagogastroduodenoscopy (EGD) History of open reduction and internal fixation (ORIF) procedure "left hip" History of tooth extraction Presence of intrathecal pump baclofen pump in place S/P IVC filter S/P partial hysterectomy Family History Other No family history of adverse response to anesthesia Social History Smoking Status: Former smoker packs per day: 1; Years Smoked: 10; Second Hand Exposure: Yes (IN THE PAST); Hx Alcohol Use: No Hx Substance Use: No Preferred Language: Tanzanian Communication Ability: Effective Visual Impairment: No Limitations Hearing Ability: Normal Flight Surgeon Required: No Beliefs That Will Affect Care: None marital status: / Current Living Situation: Alone current occupational status: retired How many Children do You have: 3 Feels Safe at Home: Yes Childhood Exposure to Second-Hand Smoke: Yes Assistive Devices: None Review of Systems Review of Systems: All systems reviewed & are unremarkable except as noted in HPI & below Physical Exam Physical Exam: Physical Exam: General: Awake, alert and oriented x 3. No acute distress. HEENT: Normocephalic, atraumatic. Pupils equal, round and reactive to light and accommodation. Extraocular muscles are intact. Anicteric sclera. Moist mucous membranes. Neck: No JVD. No bruit. Cardiovascular: Regular. No S-4. Normal S-1 and S-2. No S-3. No murmurs, rubs or gallops. Pulmonary: Clear to auscultation bilaterally. No rales, rhonchi, or wheezing. Abdomen: Bowel sounds x 4, soft. No rebound, guarding or tenderness. No organomegaly. Extremities: No clubbing, cyanosis or edema. +2 pedal pulses bilaterally. Skin: Warm and dry. Results & Data ([facility]) Vital Signs (Past 12 Hours) Vital Signs Temp Pulse Pulse Resp BP Pulse Ox 07/07/21 08:00 86 07/07/21 07:50 37.4 C 87 19 94/62 L 95 07/07/21 03:26 36.5 C 85 18 114/77 96 07/06/21 23:12 36.5 C 69 18 113/67 94 (1) Chest pain Chest pain type: chest pain due to myocardial ischemia Ischemic chest pain type: unspecified angina pectoris type Qualified Code(s): I25.9 - Chronic ischemic heart disease, unspecified
--- NOTE | 2021-07-07 15:21 | Electrocardiogram Report ---
Test Reason : Blood Pressure : / mmHG Vent. Rate : 088 BPM Atrial Rate : 088 BPM P-R Int : 130 ms QRS Dur : 066 ms QT Int : 360 ms P-R-T Axes : 000 -08 036 degrees QTc Int : 435 ms Ectopic atrial rhythm When compared with ECG of 06-JUL-2021 15:18, (unconfirmed) No significant change was found Confirmed by Edu Mckinnon ([id number]) on 07/07/2021 3:21:34 PM Referred By: REFERRED SELF Confirmed By:Jason Mckinnon
--- NOTE | 2021-07-07 15:27 | Electrocardiogram Report ---
Test Reason : Blood Pressure : / mmHG Vent. Rate : 083 BPM Atrial Rate : 083 BPM P-R Int : 148 ms QRS Dur : 064 ms QT Int : 378 ms P-R-T Axes : 065 016 053 degrees QTc Int : 444 ms Normal sinus rhythm When compared with ECG of 06-JUL-2021 20:58, (unconfirmed) Sinus rhythm has replaced ectopic atrial rhythm Confirmed by Edu Mckinnon ([id number]) on 07/07/2021 3:27:36 PM Referred By: REFERRED SELF Confirmed By:Jason Mckinnon
--- NOTE | 2021-07-07 15:36 | Electrocardiogram Report ---
Test Reason : Blood Pressure : / mmHG Vent. Rate : 087 BPM Atrial Rate : 087 BPM P-R Int : 176 ms QRS Dur : 060 ms QT Int : 366 ms P-R-T Axes : 053 -02 039 degrees QTc Int : 440 ms Normal sinus rhythm When compared with ECG of 29-APR-2020 13:39, No significant change was found Confirmed by Edu Mckinnon ([id number]) on 07/07/2021 3:35:32 PM Referred By: REFERRED SELF Confirmed By:Jason Mckinnon
[2021-07-07 19:28] LABS: INR 2.6 (0.9-1.1); Prothrombin Time 24.5 Seconds (9.0-12.0)
[2021-07-08] MEDS: CYANOCOBALAMIN 500 MCG TABLET (VITAMIN B-12) PO SCH (08:08)
[2021-07-08] MEDS: METOPROLOL SUCC 25MG EXT REL TAB PO SCH (08:08)
[2021-07-08] MEDS: ESCITALOPRAM OXALATE 20 MG TAB PO SCH (08:08)
[2021-07-08] MEDS: tiZANidine HCL 4 MG TABLET PO SCH ×4 (08:08→16:50)
[2021-07-08] MEDS: CHOLECALCIFEROL 1,000 UNITS 25 MCG TAB PO SCH (08:09)
[2021-07-08] MEDS: predniSONE 10 MG TABLET PO SCH (08:09)
[2021-07-08] MEDS: PANTOprazole 40 MG TAB PO SCH (08:09)
[2021-07-08] MEDS: OXYBUTYNIN CHLORIDE XL 5 MG TABCR PO SCH (08:09)
[2021-07-08 08:47] LABS: Hematocrit (blood only) 36.5 % (37-47); Hemoglobin 11.7 g/dL (12.0-16.0); Mean Corpuscular Hemoglobin 31.2 pg (25-34); Mean Corpuscular Hgb Conc 32.1 g/dL (32-36); Mean Corpuscular Volume 97.3 fL (80-100); Platelet Count 309 K/uL (130-400); RDW Coefficient of Variation 14.6 % (11.5-14.5); RDW Standard Deviation 52.6 fL (36.4-46.3); Red Blood Count 3.75 M/uL (4.2-5.4); White Blood Count 4.86 K/uL (4.8-10.8)
[2021-07-08 08:59] LABS: INR 1.4 (0.9-1.1); Prothrombin Time 13.4 Seconds (9.0-12.0)
--- NOTE | 2021-07-08 09:06 | Pre Anesthesia Assessment ---
Date of Service July 08, 2021 Pre Sedation Assessment Vital Signs Temp Pulse Resp BP Pulse Ox 07/08/21 07:15 37 C 84 16 102/55 L 94 07/08/21 04:00 37.2 C 78 14 130/82 95 07/07/21 23:12 37 C 80 18 131/90 93 07/07/21 19:57 36.5 C 81 18 123/70 97 07/07/21 15:39 36.2 C L 87 19 108/74 94 07/07/21 11:50 36.6 C 85 18 125/92 97 Cardiovascular + regular rate Respiratory + respiratory effort normal Pre-Sedation Airway Assessment Smoking Status: Former smoker Hx Sleep Apnea: No Hx Difficult Intubation: No Short, Thick Neck: No Thyromental Distance: > or= 3.5 Finger Breadths Oral Cavity: + WNL Mallampati Class: III ASA: ASA3 Procedure Planning Contraindications for Sedation: none Current Medications Reviewed: Yes Notes The planned sedation has been discussed with the patient. Informed Consent was obtained. I have identified the patient, determined the appropriateness of sedation and have assessed the patient immediately prior to the procedure. All medicine(s) and interventions are by my order.
[2021-07-08 09:21] LABS: BUN Creatinine Ratio 23.6 (10-20); Calcium 8.4 mg/dl (8.5-10.1); Creatinine Clr Calc Pharmacy 64.8 ml/min; Est GFR (African American) 89.1 ml/min; Est GFR (Non-African American) 76.9 ml/min; Magnesium 1.8 mg/dl (1.8-2.4); Potassium 3.8 mmol/L (3.5-5.1)
[2021-07-08] MEDS ORDERED: MIDAZOLAM HCL 1 MG/ML 2ML VIAL ONE (09:23)
[2021-07-08] MEDS ORDERED: fentaNYL citrate 100 MCG/2 ML VIAL ONE ×2 (09:23→11:24)
[2021-07-08] MEDS ORDERED: HEPARIN (PORCINE) 1000 UNIT/ML 10 ML (CATH LAB USE ONLY) ONE (09:23)
[2021-07-08] MEDS ORDERED: niCARdipine HCL INJ 2.5 MG/ML 10 ML AMP ONE (09:23)
[2021-07-08] MEDS ORDERED: NITROGLYCERIN/D5W 100MCG/ML 20ML SYR ONE (09:24)
--- NOTE | 2021-07-08 11:01 | Cardiac Catheterization ---
[facility] Data: Senior Group Manager Cardiac Status Clinical evaluation leading to the procedure CAD Presenation: Non STEMI Diagnostic Physicians Name: Edu Mckinnon MD Closure Device Recommendations: Medical Therapy and/or Counseling Cardiac Cath Procedure Full Procedure Date July 08, 2021 Pre-Procedure Diagnosis Pre-Procedure Diagnosis: Non STEMI AUC Score AUC Score: 8 Post-Procedure Diagnosis Post-Procedure Diagnosis: Mild CAD Procedure(s) Performed Procedure(s) Performed: Coronary Angiography and Left Heart Cath Technology Intern Edu Mckinnon MD Pulp Beater(s) none Estimated Blood Loss Estimated Blood Loss: None Medication(s) Medication(s): Fentanyl, Heparin, Lidocaine 1%, Nicardipine, Nitroglycerin and Versed Summary of Findings Procedure performed: Left heart catheterization, selective coronary angiography Staff online merchandiser: Edu Mckinnon MD Indication: The patient is a 70-year-old woman without a known history of cardiac disease who presented with symptoms of chest discomfort and elevated cardiac biomarkers. Procedure in detail The patient was informed the risks benefits and alternatives to the intended procedure. She understood which proceed. She was taken to the cardiac catheterization suite in a fasting state. Conscious sedation was administered per protocol the patient was monitored electrocardiographically throughout today's procedure. The right radial area prepped and draped in usual sterile fashion. This area was anesthetized using subcutaneous menstruation lidocaine solution. Right radial artery was subsequently accessed using Seldinger technique and a sheath was placed over guidewire at this site. There was significant difficulty and passing a Glidewire into the subclavian artery. After multiple attempts, this access was temporarily abandoned. The left radial area was prepped and draped in usual sterile fashion and the area over the left radial artery was anesthetized using subcutaneous menstruation lidocaine solution. The left radial artery could be accessed but a wire could not be passed. This access was abandoned and hemostasis was achieved at this site using manual pressure. Another attempt at passing a wire and catheter through the initial right radial artery was subsequently successful and coronary angiography was then performed in multiple orthogonal views along with left heart catheterization prior to removal of the catheter and sheath. Hemostasis was achieved at the access site using manual pressure. The patient tolerated this portion of the procedure well and there were no immediate complications. Findings: Coronary angiography Left main: Left main coronary artery was normal in size and caliber and bifurcated normally into the left anterior descending left circumflex arteries. No disease in this vessel. Left anterior descending: Left anterior descending artery was a large transapical vessel which produced to diagonal branches. It was approximately 50% ostial stenosis of the LAD. There was no additional disease in this vessel. Left circumflex: Left circumflex artery was a nondominant vessel. It produced 2 OM branches. There was some very mild disease at the ostium of the left circumflex, but no other obstructive lesions. Right coronary artery: The right coronary artery was a relatively small but dominant vessel without evidence of disease. Impression: Right dominant coronary system No evidence of aortic stenosis Normal left ventricular filling pressures Nonobstructive disease involving the ostial LAD No evidence of acute coronary syndrome Hemodynamics Rest Ao:: 66/49 mm of mercury Final Ao: 106/65 mm of mercury LV: 106/0 mm of mercury Left ventricular end-diastolic pressure 4 mm of mercury Recommendations Recommendations: Medical Therapy and/or Counseling Specimens Specimens: None Radiation Exposure (mGy) Seven hundred nine Contrast (mls) Fifty Procedural Complication(s) None Disposition Senior Group Manager Holding/Recovery I attest to the content of the Intraoperative Record and any orders documented therein. Any exceptions are noted below. [facility] Card Cath Procedure Codes Cardiac Catheterization Procedure 1: Cardiovascular Cath Procedures: 81882 Coronaries and LHC (+/-LV) Moderate Sedation Procedure 1: Sedation/Anesthesia: 16974 Mod Sedation by the same physician;Init15 Min Child Age 5 & Up Procedure 2: Sedation/Anesthesia: 85474 Mod Sedation by the same physician; Ea [id number] Minutes PG Care Time/CCT Total # of Minutes Spent Total Time Spent with Patient: Total time spent is greater than 50% in coordination of care (as documented) at patient's floor/unit and/or counseling patient:
--- NOTE | 2021-07-08 11:01 | Post Anesthesia Assessment ---
Date of Service July 08, 2021 Post Sedation Assessment Vital Signs Temp Pulse Resp BP Pulse Ox 07/08/21 07:15 37 C 84 16 102/55 L 94 07/08/21 04:00 37.2 C 78 14 130/82 95 07/07/21 23:12 37 C 80 18 131/90 93 07/07/21 19:57 36.5 C 81 18 123/70 97 07/07/21 15:39 36.2 C L 87 19 108/74 94 07/07/21 11:50 36.6 C 85 18 125/92 97 Recovery Score Activity: Moves 4 extremities Respiration: Deep Breath/Cough Circulation: +/-20% PreAnes Value Consciousness: Arouseable (by name) Oxygen Saturation: > 92% On Room Air Discharge Sedation Level of Care: Fast Track Phase II Post Sedation Plan On clinical assessment, the patient appears to have tolerated the sedation without complications. Patient is recovering as anticipated. Patient will continue to be monitored by nursing and may be discharged when sedation discharge criteria are met per below protocol. Upon Completions of procedure up to 15 minutes continue every 5 minute vital signs and the P.A.R. score; then discharge to a Phase I or Fast Track to Phase II per the following guidelines: * Discharge Patient to appropriate Phase II area if PAR is 8 or greater or return to pre- procedure baseline. The post - procedure orders will be as directed. * If PAR score is less than 8 or not return to pre-procedure baseline then patient will follow Phase I monitoring till PAR is reached for Phase II. The Phase I may be done in procedure room or may call to secure a Phase I area. * If naloxone or flumazenil are used for reversal, hold in Phase I for continued monitoring from when last reversal dose was given for a minimum of 60 minutes or longer pending the nurse and/or physician discretion of patient condition before discharge to Phase II. Please call the Sedation Physician to re-evaluate and complete post-note for discharge to Phase II area. Do NOT discharge from procedure sedation or Phase 1 until post- sedation evaluation note is complete by procedure /sedation MD Sedation Discharge Instructions to be given to the patient at discharge to home.
--- NOTE | 2021-07-08 12:31 | Cardiology Progress Note ---
Date of Service July 08, 2021 Assessment & Plan (1) Non-STEMI (non-ST elevated myocardial infarction): (2) Chest pain: (3) Elevated troponin: (4) Supratherapeutic INR: (5) History of pulmonary embolism: (6) History of DVT (deep vein thrombosis): (7) Multiple sclerosis: Plan: Cardiac catheterization today reveals no culprit lesion for elevated troponin level and chest discomfort. However, does have moderate disease including 50% proximal LAD obstruction. Case reviewed with interventional cardiology and 12 months of clopidogrel recommended along with patient's baseline Coumadin. Now with brachial hematoma, to be followed closely. We will restart Coumadin this evening. Continue metoprolol. Admission and Anticipated Discharge Date Admission Date: July 06, 2021 Subjective Patient seen and examined in cardiac cath recovery, chart reviewed. States that she is feeling okay currently without any recurrences of chest discomfort. She is having some numbness at the site of her right upper extremity hematoma. Denies shortness of breath, palpitations, lightheadedness or dizziness. Telemetry reviewed: Normal sinus rhythm without arrhythmia or significant ectopy. Review of Systems Review of Systems: All systems reviewed & are unremarkable except as noted in HPI & below Physical Exam Physical Exam: Physical Exam: General: Awake, alert and oriented x 3. No acute distress. HEENT: Normocephalic, atraumatic. Pupils equal, round and reactive to light and accommodation. Extraocular muscles are intact. Anicteric sclera. Moist mucous membranes. Neck: No JVD. No bruit. Cardiovascular: Regular. No S-4. Normal S-1 and S-2. No S-3. No murmurs, rubs or gallops. Pulmonary: Clear to auscultation bilaterally. No rales, rhonchi, or wheezing. Abdomen: Bowel sounds x 4, soft. No rebound, guarding or tenderness. No organomegaly. Extremities: No clubbing, cyanosis or edema. +2 pedal pulses bilaterally. Skin: Warm and dry. Results & Data ([facility]) Vital Signs (Past 12 Hours) Vital Signs Temp Pulse Resp BP Pulse Ox 07/08/21 12:15 69 14 164/101 H 97 07/08/21 12:00 74 14 155/98 H 95 07/08/21 11:45 74 14 167/120 H 97 07/08/21 11:31 74 14 189/122 H 98 07/08/21 11:19 36.9 C 84 18 92/64 L 98 07/08/21 11:15 80 16 170/41 H 99 07/08/21 11:10 16 104/65 94 07/08/21 07:15 37 C 84 16 102/55 L 94 07/08/21 04:00 37.2 C 78 14 130/82 95 (1) Chest pain Chest pain type: chest pain due to myocardial ischemia Ischemic chest pain type: unspecified angina pectoris type Qualified Code(s): I25.9 - Chronic ischemic heart disease, unspecified
--- NOTE | 2021-07-08 14:00 | Electrocardiogram Report ---
Test Reason : Blood Pressure : / mmHG Vent. Rate : 076 BPM Atrial Rate : 076 BPM P-R Int : 154 ms QRS Dur : 062 ms QT Int : 378 ms P-R-T Axes : 065 018 053 degrees QTc Int : 425 ms Normal sinus rhythm When compared with ECG of 07-JUL-2021 06:20, No significant change was found Confirmed by Edu Mckinnon ([id number]) on 07/08/2021 2:00:22 PM Referred By: REFERRED SELF Confirmed By:Jason Mckinnon
[2021-07-08] MEDS ORDERED: WARFARIN SOD 2.5 MG TAB PO SCH (16:00)
--- NOTE | 2021-07-08 19:19 | Hospitalist Progress Note ---
Date of Service July 08, 2021 Assessment & Plan (1) Non-STEMI (non-ST elevated myocardial infarction): Plan: Chest Pain Nonobstructive coronary artery disease NSTEMI ruled out S/P Cardiac Cath:50% ostial stenosis of the LAD Appreciate cardiology input Continue Plavix, Metoprolol Check Lipid Panel Appreciate Cardiology Input Right upper extremity hematoma Monitor CBC while on anticoagulation (2) History of supraventricular tachycardia: Plan: -Continue metoprolol (3) History of pulmonary embolism: (4) History of DVT (deep vein thrombosis): Plan: INR supratherapeutic on presentation S/P Vit K Monitor INR: 1.4 Resumed Coumadin (5) Multiple sclerosis: Plan: -On chronic prednisone, teriflunomide, tizanidine , will continue -Also with intrathecal baclofen pump in place (follows with pain management clinic) (6) DVT prophylaxis: Plan: On Coumadin Admission and Anticipated Discharge Date Admission Date: July 06, 2021 Subjective Patient is seen and examined at bedside Had cardiac catheterization earlier today Chest pain resolved Denies dyspnea, dizziness, nausea, abdominal pain States having some numbness at right upper extremity hematoma Review of Systems Review of Systems: All systems reviewed & are unremarkable except as noted in Subjective Physical Exam Physical Exam: Physical Exam: Vitals signs as noted above General Appearance:Moderately built and nourished, no apparent distress Head: normocephalic, Atraumatic Eyes: normal inspection, EOMI Neck: supple, Trachea midline Respiratory/Chest: Normal breath sounds, CTA Cardiovascular: S1, S2, No murmur Abdomen/GI:Soft, Non tender, Bowel sounds present Extremities/Musculoskeletal:normal inspection, no pedal edema, RUE swelling Neurologic/Psych:AAOX3, grossly no focal neurological deficits Skin: normal color, warm Results & Data Results & Data ([facility]) Vital Signs (Past 12 Hours) Vital Signs Temp Pulse Resp BP BP Pulse Ox 07/08/21 18:02 86 18 127/85 95 07/08/21 17:15 91 H 18 142/95 H 97 07/08/21 16:17 80 18 141/95 H 97 07/08/21 15:17 36.8 C 74 18 143/87 H 95 07/08/21 14:17 78 18 146/110 H 97 07/08/21 13:17 80 18 159/88 H 95 07/08/21 12:48 73 18 162/111 H 97 07/08/21 12:35 36.7 C 74 18 169/94 H 94 07/08/21 12:15 69 14 164/101 H 97 07/08/21 12:00 74 14 155/98 H 95 07/08/21 11:45 74 14 167/120 H 97 07/08/21 11:31 74 14 189/122 H 98 07/08/21 11:19 36.9 C 84 18 92/64 L 98 07/08/21 11:15 80 16 170/41 H 99 07/08/21 11:10 16 104/65 94 07/08/21 07:15 37 C 84 16 102/55 L 94 Laboratory Results Short CBC 07/08/21 Range/Units 07:48 WBC 4.86 (4.8-10.8) K/uL Hgb 11.7 L (12.0-16.0) g/dL Hct 36.5 L (37-47) % Plt Count 309 (130-400) K/uL BMP 07/08/21 07:48 Sodium 141 Potassium 3.8 Chloride 110 H Carbon Dioxide 26 BUN 19 H Creatinine 0.79 Glucose 83 Calcium 8.4 L
[2021-07-08] MEDS: DOXYCYCLINE HYCLATE 50 MG CAP PO SCH (20:02)
[2021-07-09 08:03] LABS: Hematocrit (blood only) 33.7 % (37-47); Hemoglobin 11.5 g/dL (12.0-16.0); Mean Corpuscular Hemoglobin 33.3 pg (25-34); Mean Corpuscular Hgb Conc 34.1 g/dL (32-36); Mean Corpuscular Volume 97.7 fL (80-100); Mean Platelet Volume 9.6 fL (7.4-10.4); Platelet Count 286 K/uL (130-400); RDW Coefficient of Variation 14.6 % (11.5-14.5); RDW Standard Deviation 51.8 fL (36.4-46.3); Red Blood Count 3.45 M/uL (4.2-5.4); White Blood Count 5.09 K/uL (4.8-10.8)
[2021-07-09 08:14] LABS: INR 1.1 (0.9-1.1); Prothrombin Time 11.1 Seconds (9.0-12.0)
[2021-07-09] MEDS: OXYBUTYNIN CHLORIDE XL 5 MG TABCR PO SCH (08:15)
[2021-07-09] MEDS: PANTOprazole 40 MG TAB PO SCH (08:15)
[2021-07-09] MEDS: CHOLECALCIFEROL 1,000 UNITS 25 MCG TAB PO SCH (08:15)
[2021-07-09] MEDS: ESCITALOPRAM OXALATE 20 MG TAB PO SCH (08:15)
[2021-07-09] MEDS: CYANOCOBALAMIN 500 MCG TABLET (VITAMIN B-12) PO SCH (08:15)
[2021-07-09] MEDS: METOPROLOL SUCC 25MG EXT REL TAB PO SCH (08:15)
[2021-07-09] MEDS: predniSONE 10 MG TABLET PO SCH (08:15)
[2021-07-09] MEDS: tiZANidine HCL 4 MG TABLET PO SCH ×3 (08:16→15:42)
[2021-07-09 08:40] LABS: BUN Creatinine Ratio 24.7 (10-20); Calcium 8.2 mg/dl (8.5-10.1); Creatinine Clr Calc Pharmacy 65.6 ml/min; Est GFR (African American) 90.5 ml/min; Est GFR (Non-African American) 78.1 ml/min; Potassium 3.9 mmol/L (3.5-5.1)
[2021-07-09] MEDS ORDERED: amLODIPine BESYLATE 5 MG TAB PO SCH (09:00)
[2021-07-09] MEDS ORDERED: CLOPIDOGREL BISULFATE 75 MG TAB PO SCH (09:00)
[2021-07-09] MEDS ORDERED: ATORVASTATIN 20 MG TAB PO SCH (10:30)
--- NOTE | 2021-07-09 12:38 | Cardiology Progress Note ---
Date of Service July 09, 2021 Assessment & Plan (1) Non-STEMI (non-ST elevated myocardial infarction): (2) Chest pain: (3) Elevated troponin: (4) Supratherapeutic INR: (5) History of pulmonary embolism: (6) History of DVT (deep vein thrombosis): (7) Multiple sclerosis: Plan: Cardiac catheterization revealed no culprit lesion for elevated troponin level and chest discomfort. However, does have moderate disease including 50% proximal LAD obstruction. Case reviewed with interventional cardiology and 12 months of clopidogrel recommended Brachial hematoma improving Given her baseline bleeding issues while on Coumadin and the fact that she will need 12 months of clopidogrel I believe the most prudent course of action at this point would be to discontinue warfarin and instead start Eliquis 5 mg p.o. twice daily in 3 days for her history of DVT and PE. Patient should also follow-up with PCP as an outpatient to determine whether or not ongoing full dose anticoagulation is necessary. Okay to DC to home from a cardiac standpoint. My office will call to arrange cardiology follow-up in 2 weeks Blood pressure was elevated but now improved with metoprolol and amlodipine, would continue. Admission and Anticipated Discharge Date Admission Date: July 06, 2021 Subjective Patient seen and examined, chart reviewed. States that her arm is feeling much better today. Denies any recurrences of chest discomfort. Also denies shortness of breath, palpitations, lightheadedness, dizziness or syncope. Review of Systems Review of Systems: All systems reviewed & are unremarkable except as noted in HPI & below Physical Exam Physical Exam: Physical Exam: General: Awake, alert and oriented x 3. No acute distress. HEENT: Normocephalic, atraumatic. Pupils equal, round and reactive to light and accommodation. Extraocular muscles are intact. Anicteric sclera. Moist mucous membranes. Neck: No JVD. No bruit. Cardiovascular: Regular. No S-4. Normal S-1 and S-2. No S-3. No murmurs, rubs or gallops. Pulmonary: Clear to auscultation bilaterally. No rales, rhonchi, or wheezing. Abdomen: Bowel sounds x 4, soft. No rebound, guarding or tenderness. No organomegaly. Extremities: No clubbing, cyanosis or edema. +2 pedal pulses bilaterally. Skin: Warm and dry. Results & Data ([facility]) Vital Signs (Past 12 Hours) Vital Signs Temp Pulse Pulse Resp BP BP Pulse Ox 07/09/21 12:24 36.5 C 81 18 133/80 93 07/09/21 11:06 81 07/09/21 07:27 37.4 C 79 18 158/83 H 93 07/09/21 04:01 36.8 C 81 17 168/96 H 93 (1) Chest pain Chest pain type: chest pain due to myocardial ischemia Ischemic chest pain type: unspecified angina pectoris type Qualified Code(s): I25.9 - Chronic ischemic heart disease, unspecified
--- NOTE | 2021-07-09 16:08 | Hospitalist Progress Note ---
Date of Service July 09, 2021 Assessment & Plan (1) Non-STEMI (non-ST elevated myocardial infarction): Plan: Chest Pain Nonobstructive coronary artery disease NSTEMI ruled out S/P Cardiac Cath:50% ostial stenosis of the LAD Appreciate cardiology input Continue Plavix, Metoprolol Started on Lipitor Appreciate Cardiology Input Right upper extremity hematoma Hb stable Off anticoagulation for now (2) History of supraventricular tachycardia: Plan: -Continue metoprolol (3) History of pulmonary embolism: (4) History of DVT (deep vein thrombosis): Plan: INR supratherapeutic on presentation S/P Vit K Monitor INR: 1.4 Coumadin discontinued Transitioned to Eliquis as recommended by Cardiology Plan to start on Eliquis in 3 days if no recurrence of bleeding (5) Multiple sclerosis: Plan: -On chronic prednisone, teriflunomide, tizanidine , will continue -Also with intrathecal baclofen pump in place (follows with pain management clinic) (6) DVT prophylaxis: Plan: Was on Coumadin Plan to start on Eliquis Admission and Anticipated Discharge Date Admission Date: July 06, 2021 Subjective Patient is seen and examined at bedside No new complaints Right upper extremity less painful No recurrence of chest pain Denies dyspnea, dizziness, nausea, abdominal pain Hb stable Review of Systems Review of Systems: All systems reviewed & are unremarkable except as noted in Subjective Physical Exam Physical Exam: Physical Exam: Vitals signs as noted above General Appearance:Moderately built and nourished, no apparent distress Head: normocephalic, Atraumatic Eyes: normal inspection, EOMI Neck: supple, Trachea midline Respiratory/Chest: Normal breath sounds, CTA Cardiovascular: S1, S2, No murmur Abdomen/GI:Soft, Non tender, Bowel sounds present Extremities/Musculoskeletal:normal inspection, no pedal edema, RUE swelling Neurologic/Psych:AAOX3, grossly no focal neurological deficits Skin: normal color, warm Results & Data Results & Data ([facility]) Vital Signs (Past 12 Hours) Vital Signs Temp Pulse Pulse Resp BP BP Pulse Ox 07/09/21 15:46 37.0 C 82 19 131/79 98 07/09/21 12:24 36.5 C 81 18 133/80 93 07/09/21 11:06 81 07/09/21 07:27 37.4 C 79 18 158/83 H 93 Laboratory Results Short CBC 07/09/21 Range/Units 07:40 WBC 5.09 (4.8-10.8) K/uL Hgb 11.5 L (12.0-16.0) g/dL Hct 33.7 L (37-47) % Plt Count 286 (130-400) K/uL BMP 07/09/21 07:40 Sodium 142 Potassium 3.9 Chloride 111 H Carbon Dioxide 26 BUN 19 H Creatinine 0.78 Glucose 84 Calcium 8.2 L
--- NOTE | 2021-07-09 16:27 | Discharge Summary ---
Date of Service July 09, 2021 Admission HPI Per Admitting Provider 70-year-old female with PMH MS on chronic prednisone and with baclofen pump in place, history of DVT and PE anticoagulated on Coumadin, history of SVT, history of GI bleeding, history of breast cancer s/p mastectomy, and other problems listed below who presents the ED for evaluation of chest pain. Patient reports she went to the swimming pool this morning per her usual routine. Reports that while walking in the pool, she developed a centralized chest pain. Patient describes the pain as a pressure and as a " elephant sitting on my chest". Rates the pain #8-9/10 at its worst. Reports that her jaw " did not feel right". She denies associated shortness of breath, diaphoresis, lightheadedness, dizziness, syncopal event. Reports that she rested for a bit and required the assistance of a wheelchair to get to her car. The pain persisted however patient drove home. Once arriving home, patient called 911 and was brought to the ED for further evaluation. Patient states that when she arrived to the ED, chest pain has resolved. Patient reports she otherwise has been feeling well recently. Denies any other recent illnesses, fevers, chills. No abdominal pain, vomiting, diarrhea. Denies urinary symptoms. In the ED, labs show troponin 0 0.557, EKG without acute ST changes. Patient is anticoagulant on Coumadin and INR 6.3. Patient is hemodynamically stable. She reports she is currently chest pain-free. Admission Exam Per Admitting Provider Physical Exam Constitutional: WD/WN, vitals as above Eyes: PERRL, conjunctivae normal, anicteric sclerae ENMT: external ear and nose normal, oropharynx normal Respiratory: normal respiratory effort, lungs clear to auscultation Cardiovascular: Rate/Rhythm: regular rate and regular rhythm Vessels: normal peripheral pulses Extremities: no edema Gastrointestinal (Abdomen): normal bowel sounds, soft, nontender, no hepatosplenomegaly Musculoskeletal: no cyanosis or clubbing, extremities motor strength 5/5 Skin: no rashes, warm and dry Neurologic: PERRL, EOMI, accommodation nl, no face palsy, no dysarthria Psychiatric: A+Ox3, euthymic affect Principal Diagnosis Nonobstructive coronary artery disease Right upper extremity hematoma Supratherapeutic INR Discharge Data Allergies Allergy/AdvReac Type Severity Reaction Status Date / Time No Known Allergies Allergy Verified 07/06/21 16:38 Consultations 07/06/21 18:16 ED Decision to Admit Stat 07/06/21 20:31 Consult Cardiology Routine 07/08/21 09:00 Consult Cardiac Catheterization Routine Procedures Performed Operation Date: 07/08/21 09:00 Actual Procedures p Cath, Left with Cors and Vent - Josr Mckinnon MD s Cineradiography w/Routine Exam - Josr Mckinnon MD Ordered Studies 07/08/21 06:42 CL Cath Imgs for PACS use only Routine Hospital Course (1) Non-STEMI (non-ST elevated myocardial infarction): Chest Pain Nonobstructive coronary artery disease NSTEMI ruled out S/P Cardiac Cath:50% ostial stenosis of the LAD Appreciate cardiology input Continue Plavix, Metoprolol Started on Lipitor Appreciate Cardiology Input Right upper extremity hematoma Hb stable Off anticoagulation for now (2) History of supraventricular tachycardia: -Continue metoprolol (3) History of pulmonary embolism: (4) History of DVT (deep vein thrombosis): INR supratherapeutic on presentation S/P Vit K Monitor INR: 1.4 Coumadin discontinued Transitioned to Eliquis as recommended by Cardiology Plan to start on Eliquis in 3 days if no recurrence of bleeding (5) Multiple sclerosis: -On chronic prednisone, teriflunomide, tizanidine , will continue -Also with intrathecal baclofen pump in place (follows with pain management clinic) (6) DVT prophylaxis: Was on Coumadin Plan to start on Eliquis Total Time Total Time Spent Total Time Spent (In Minutes): 40 minutes Discharge Plan Discharge Items Patient Disposition: Home - Self-Care Reason For Visit: NSTEMI Discharge Diagnosis: Nonobstructive coronary artery disease Right upper extremity hematoma Supratherapeutic INR Activity: Per Instructions section Exercise/Sports: Wait until after follow-up appointment Non-emergency contact: Primary Care Provider and [facility] Call non-emergency contact if: you have any medication questions, your symptoms worsen, your pain is not controlled, your pain is concerning for you and you have a fever Follow-up/Referrals: Jil Schmid DO [Primary Care Provider] - Diet: Heart Healthy Addtl Attending Provider Instructions: Follow up with your Primary Care physician in 1 week as advised (Please call for appointment) Follow up with your [facility]ner in 2 weeks --You Coumadin is discontinued a recommended by your [facility]ner --Start taking Apixaban (Eliquis) 5mg twice a day starting 07/13/21 if no recurrence of bleeding Discuss with your Primary care physician regarding anticoagulation needs and duration (and see if it can be discontinued) --You are also started on Lipitor, Plavix and amlodipine. --Do not take group of medications belonging to NSAIDs group -can cause worsening of your bleeding risk/kidney function. List Of these medications includes but not limited to: Diclofenac Ibuprofen, Motrin, Advil Toradol,ketorolac Naproxen, Aleve, Naprosyn You can take Tylenol as needed for pain or fever When buying [id number] pain medications please consult with pharmacy if you are not sure regarding ingredients, as a lot of the pain medications have combination of NSAIDs and Tylenol. Seek immediate medical attention if your symptoms reoccur or worsen Please take all medications as instructed on discharge list below. Please call if you have any questions or problems. You can reach a [facility] hospitalist on duty at [facility] 24 hours a day by calling [phone] [facility] Invoice Clerk Provider Instructions: ACTIVITY RECOMMENDATIONS: Excess manipulation of the wrist should be avoided for the next 24-48 hours. * No lifting over 2 pounds (approximately a 1/2 gallon of milk) with the utilized arm for 24 hours. * No strenuous activity such as bowling or tennis for 3 days. * Keep the site of the procedure covered with a bandage for 24 hours. *You may shower the day after the procedure. Do not take a tub bath or submerge the puncture site in water for the next 3 days. *Do not operate any motorized equipment for 3 days. SPECIAL CARE INSTRUCTIONS: The site may be slightly bruised and sore following your procedure. Should any of the following occur, contact the DrTraci who performed your procedure. 1. Redness/inflammation, swelling, chills, or fever, or colored drainage at procedure site within 3-7 days after your procedure. 2. Coldness, discoloration, ongoing numbness, severe pain, or swelling. Expect mild tingling of hand and tenderness at the puncture site for up to three days. If this persists beyond three days, or other symptoms develop, notify the Dr. who performed your procedure. BLEEDING: If the procedure site on your wrist begins to bleed, do not panic 1. Place 1 or 2 fingers firmly just slightly above the insertion site to stop the bleeding. You may be able to feel your pulse as you hold pressure. 2. Lift your finger after 5 minutes to see if the bleeding has stopped. 3. Once the bleeding has stopped, gently wipe the wrist area clean with a bandage. * If the bleeding from your wrist does not stop after 10 minutes, or if there is a large amount of bleeding or spurting, call 911 (do not drive yourself to the hospital). SKIN IRRITATION: * You may experience some redness and/or swelling in the area where radiation was administered. If any skin irritation occurs, please contact your family physician. FOLLOW UP VISIT: Keep any scheduled doctor appointments. Pending Studies at Discharge: No Stand-Alone Forms: My [facility], Smoking Cessation Medications and DC Order Prescriptions: New Eliquis 5 mg tablet 5 mg PO BID Qty: 60 RF: 0 atorvastatin 20 mg Tablet 20 mg PO QAM Qty: 30 RF: 1 clopidogrel 75 mg Tablet 75 mg PO QAM Qty: 30 RF: 1 amlodipine [Norvasc] 5 mg Tablet 5 mg PO QAM Qty: 30 RF: 1 Continued prednisone 10 mg tablet 10 mg PO QAM RF: 0 oxybutynin chloride 15 mg tablet extended release 24hr 15 mg PO QAM RF: 0 cholecalciferol (vitamin D3) 1,000 unit capsule 1,000 units PO QAM RF: 0 escitalopram oxalate [Lexapro] 20 mg tablet 20 mg PO QAM RF: 0 tizanidine [Zanaflex] 4 mg capsule 4 mg PO QID RF: 0 doxycycline monohydrate 100 mg Capsule 100 mg PO Q2D@2200 RF: 0 metoprolol succinate [Toprol XL] 25 mg Tablet Extended Release 24 Hr 25 mg PO QAM RF: 0 cyanocobalamin (vitamin B-12) [Vitamin B-12] 1,000 mcg Tablet 1,000 mcg PO QAM RF: 0 teriflunomide 14 mg Tablet 14 mg PO QPM RF: 0 multivitamin with minerals [Hair,Skin and Nails] Tablet 2 tab PO BID RF: 0 omeprazole 40 mg capsule,delayed release(DR/EC) 40 mg PO QAM RF: 0 Discontinued warfarin 5 mg tablet 2.5 mg PO MO RF: 0 warfarin 5 mg tablet 5 mg PO SUTUWETHFRSA RF: 0 Discharge Orders: Discharge Order (Routine); Ordered 07/09/21 Ordered By: Fernando Armenta Admission Data Admit Date/Time: 07/06/21 18:27 Attending Provider: Fernando Armenta Admit Provider: J Carlos Johnson Primary Care Provider: Jil Schmid Other Providers: J Carlos Johnson ; Karson Morgan ; Josr Mckinnon Other Interventions: Discharge Summary Assessment (RN) Last Done: 07/09/21 16:49
--- NOTE | 2021-07-09 16:37 | Cardiology Progress Note ---
Date of Service July 09, 2021 Assessment & Plan (1) Hematoma: Plan: The patient is hematoma appears to be improving. No evidence of compartment syndrome. The arm itself appears to be softer versus yesterday. He seems to have good distal perfusion and minimal discomfort. She should continue conservative measures with elevation of the arm hot compresses as tolerated and return for worsening pain or swelling of the right upper extremity. She should refrain from lifting over 5 pounds using the right arm and avoid vigorous use of the right wrist for 1 week. Additional cardiac recommendations were made by Dr. Treviño in his note earlier today. Admission and Anticipated Discharge Date Admission Date: July 06, 2021 Subjective This afternoon the patient claims to be feeling well. Minimal discomfort at the site of her cardiac catheterization involving the right arm yesterday. Physical Exam Physical Exam: Significant ecchymosis involving the right arm primarily in the brachial area. Softer than yesterday. Palpable right radial pulse. Good perfusion of the right hand. Results & Data ([facility]) Vital Signs (Past 12 Hours) Vital Signs Temp Pulse Pulse Resp BP BP Pulse Ox 07/09/21 15:46 37.0 C 82 19 131/79 98 07/09/21 12:24 36.5 C 81 18 133/80 93 07/09/21 11:06 81 07/09/21 07:27 37.4 C 79 18 158/83 H 93
--- NOTE | 2021-07-17 19:02 | Coding Query ---
CODING QUERY To promote full compliance with coding requirements relating to patient care, provider participation is requested in all cases of orchestra conductor uncertainty. Please assist us with the question(s) below: Coding Question(s): Patient with RUE hematoma , in setting of supratherapeutic INR . Please document the etiology of the hematoma. Thank you . [facility] Physician's Response(s): RUE hematoma , in setting of supratherapeutic INR Likely due to anticoagulation Principal Diagnosis: "that condition established after study, to be chiefly responsible for occasioning the admission of the patient to the hospital for care." Co-Existing Principal Diagnosis: "when two or more diagnoses equally meet the criteria for principal diagnosis as determined by the circumstances of admission, diagnostic work up, and/or therapy provided, and the Alphabetic Index, Tabular List, or another coding guideline does not provide sequencing direction, any one of the diagnoses may be sequenced first." "When the physician has documented what appears to be a current diagnosis in the body of the record, but has not included the diagnosis in the final diagnostic statement, the physician should be asked whether the diagnosis should be added." (Source Coding [facility] 2 QTR90. p3-4) JOHNNY
== END 2021-07-09 17:52 | disposition home or self-care (01) | DRG 287 ==
LOC: ED 15:04 → 2S 18:27 → SUATTDRO 18:27 → 2S 19:45

== ENCOUNTER 2022-05-13 12:51 | Inpatient (IN) ==
[2022-05-13] MEDS ORDERED: SODIUM CHLORIDE 0.9% 1000ML 1,000 ML IV ONE (14:23)
--- NOTE | 2022-05-13 14:29 | Emergency Department Note ---
Impression & Plan UTI (urinary tract infection), Weakness ED Provider Note NAME: NADEEN ANNE AGE: 71 SEX: F : 1950 ARRIVES VIA: Walk-In INFORMANT: Patient ED PROVIDER(S): Sanchez Casarez DO CHIEF COMPLAINT: abdominal pain HPI: Patient is a 71-year-old female with a past medical history of MS, with an IVC filter, previous PEs, history of appendectomy and hysterectomy that presents the ER for abdominal pain. She notes that earlier this week around Tuesday she felt a little dizzy. This is resolved. She has felt slightly hot and cold. She denies any headache or change in vision. She does feel very weak. She admits to diffuse abdominal pain. No nausea or vomiting. Last bowel movement was today but was very small. Denies any dysuria, urgency, or frequency. Does admit to a history of recurrent UTIs. She is also complaining of pain on her buttocks which has been present for the past several days. ROS: See above HPI for pertinent positives & negatives. A total of 10 systems reviewed and were otherwise negative. PAST MEDICAL HISTORY:See Below PAST SURGICAL HISTORY:See Below FAMILY HISTORY:See Below SOCIAL HISTORY:See Below HOME MEDICATIONS:See Below ALLERGIES:See Below VITALS:See Below PHYSICAL EXAMINATION: GENERAL: Sitting up in bed, alert, well appearing, well nourished, no distress, non-toxic EYE EXAM: normal conjunctiva. PERRL and EOM's intact. OROPHARYNX: no exudate, no erythema, lips, buccal mucosa, and tongue normal and mucous membranes are moist NECK: supple, no nuchal rigidity, no adenopathy, non-tender LUNGS: Clear to auscultation. Normal chest wall mechanics HEART: no murmurs, S1 normal and S2 normal ABDOMEN: abdomen soft, non-tender, normo-active bowel sounds, no masses, no rebound or guarding. RECTAL: No surrounding masses or induration UPPER EXTREMITIES: upper extremities are grossly normal. LOWER EXTREMITIES: No pitting edema. NEURO EXAM: Normal sensorium, cranial nerves II-XII intact, normal speech, no weakness of arms, no weakness of legs. No drift. Finger to nose intact. Gross sensation intact. MEDICAL DECISION MAKING: Patient is a 71-year-old female who presents ER for above-stated complaint. History of MS and is feeling very weak and rundown and cannot take care of herself. She is also complaining of abdominal pain/rectal pain. IV was established blood work was obtained. Labs show a leukocytosis of 10.8. Mild anemia 11.2. BMP along with LFTs bilirubin was unremarkable. Troponin was detectable. Lipase was normal. UA with nitrates leuks whites and bacteria. Patient was ordered IV Rocephin. She given IV fluids. Patient was updated at bedside. Discussed with the hospitalist Dana Steele for further evaluation. Repeat troponin pending. Do not favor this is ACS as she has no cardiac symptoms. Triage Nursing notes reviewed. Limited review of prior medical records performed Vital Signs: reviewed and remarkable for no significant abnormalities Differential diagnosis: Differential diagnoses includes but is not limited to gastritis, peptic ulcer disease, GERD, gallbladder disease, pancreatitis, small bowel obstruction, acute coronary syndrome, pericarditis, ischemic bowel, irritable bowel disease, irritable bowel syndrome, appendicitis, diverticulitis, malignancy, hernia, urinary tract infection, torsion, /ectopic (if female), perforation, trauma, infectious. ER treatment provided: See below Diagnostics interpreted by me: ECG: Sinus tachycardia rate of 101 Normal axis No PVCs Septal Q waves QTC 438 Cardiac Monitoring: An order was placed for continuous cardiac monitoring. The monitor shows a rate of 95 with sinus rhythm. Laboratory studies: As stated above and show below. Imaging studies: CT abdomen pelvis is unremarkable Consultation(s): Discussed with Dana from the [facility] hospitalist service Procedures: none Critical Care: None Past Med/Surg History Medical History Anemia Breast cancer Left (17 years ago) CAD (coronary artery disease) Non-obstructive per 06/2021 cardiac cath GERD (gastroesophageal reflux disease) History of DVT (deep vein thrombosis) History of GI bleed Upper GIB (2019) felt 2/2 NSAID use History of non-ST elevation myocardial infarction (NSTEMI) 06/2021 (had heart cath, no stents) History of pulmonary embolism History of supraventricular tachycardia Hx of gastric ulcer 02/2021 Hypertension Multiple sclerosis Follows with Dr. Walker/[facility] Stable Neurogenic bladder Osteoarthritis of right shoulder Osteoporosis Raynaud disease Surgical History H/O left mastectomy with lymph node removal History of appendectomy History of cardiac cath Cardiac cath (07/06/21; [facility]) > Right dominant coronary system. No evidence of aortic stenosis. Normal left ventricular filling pressures. Nonobstructive disease involving the ostial LAD. No evidence of acute coronary syndrome. Approximately 50% ostial stenosis of the LAD. There was some very mild disease at the ostium of the left circumflex. Recommendations: Medical management. History of colonoscopy History of esophagogastroduodenoscopy (EGD) EGD (02/09/22): MAC at [facility] History of open reduction and internal fixation (ORIF) procedure "left hip" History of tooth extraction Presence of intrathecal pump baclofen pump in place S/P IVC filter S/P partial hysterectomy Family History Other No family history of adverse response to anesthesia Social History Smoking Status: Never smoker packs per day: 1; Years Smoked: 10; Second Hand Exposure: No; Hx Alcohol Use: No Hx Substance Use: No Preferred Language: Yoruba Communication Ability: Effective Visual Impairment: No Limitations Hearing Ability: Normal Supervisor Sewer System Required: No Beliefs That Will Affect Care: None marital status: / Current Living Situation: Alone current occupational status: retired How many Children do You have: 3 Feels Safe at Home: Yes Childhood Exposure to Second-Hand Smoke: Yes Assistive Devices: Wheelchair Allergies Allergies Allergy/AdvReac Type Severity Reaction Status Date / Time No Known Allergies Allergy Verified 05/13/22 14:38 Home Meds Home Medications Medication Instructions Recorded Confirmed cholecalciferol (vitamin D3) 25 1,000 units PO QAM 09/18/18 05/13/22 mcg (1,000 unit) capsule escitalopram oxalate 20 mg tablet 20 mg PO QAM tab 09/18/18 05/13/22 (Lexapro) oxybutynin chloride 15 mg 15 mg PO QAM 09/18/18 05/13/22 tablet,extended release 24 hr prednisone 10 mg tablet 10 mg PO QAM 09/18/18 05/13/22 doxycycline monohydrate 100 mg 100 mg PO Q OTHER DAY 04/29/20 05/13/22 capsule omeprazole 40 mg capsule,delayed 40 mg PO QAM 07/06/21 05/13/22 release [id number]-[id number] 3.5 4 drp OTIC (EAR) TID 05/13/22 05/13/22 mg/mL-10,000 unit/mL-1 % ear solution sucralfate 100 mg/mL oral 10 ml PO QID 05/13/22 05/13/22 suspension teriflunomide 14 mg tablet 14 mg PO QPM 05/13/22 05/13/22 (Aubagio) tizanidine 4 mg tablet (Zanaflex) 4 mg PO QID 05/13/22 05/13/22 Previous Rx's Medication Instructions Recorded amlodipine 5 mg tablet (Norvasc) 5 mg PO QAM #30 tab 07/09/21 apixaban 5 mg tablet (Eliquis) 5 mg PO BID #60 tab 07/09/21 atorvastatin 20 mg tablet 20 mg PO QAM #30 tab 07/09/21 clopidogrel 75 mg tablet 75 mg PO QAM #30 tab 07/09/21 Results & Data (ED) Vital Signs Vital Signs - 24 hr 05/13/22 12:57 05/13/22 14:00 05/13/22 18:00 Temperature 36.8 C 36.9 C Temperature Source Temporal Artery Scan Oral Pulse Rate 102 H Pulse Rate [Right Finger] 86 77 Pulse Rhythm [Right Finger] Regular Pulse Strength [Right Finger] Normal Respiratory Rate 20 17 16 Respiratory Effort / Characteristics Non-Labored Spontaneous Non-Labored Spontaneous Respiratory Depth Normal Normal Respiratory Pattern Regular Regular Blood Pressure 136/83 Blood Pressure [Right Arm] 104/81 111/79 Blood Pressure Mean 100 Blood Pressure Mean [Right Arm] 88 89 Blood Pressure Position [Right Arm] Lying Pulse Oximetry 95 96 98 Oxygen Delivery Method Room Air Room Air Nasal Cannula Sepsis Recent Fever Within 48 Hours No Sepsis New/Unexplained Change in Mental Status No Sepsis Action Taken by Nursing No Action Required Laboratory Data Result diagrams: 05/13/22 14:10 05/13/22 14:10 Lab Results 05/13/22 05/13/22 05/13/22 Range/Units 14:10 14:10 15:10 WBC 10.86 H (4.8-10.8) K/uL RBC 3.51 L (4.2-5.4) M/uL Hgb 11.2 L (12.0-16.0) g/dL Hct 34.3 L (37-47) % MCV 97.7 (80-100) fL MCH 31.9 (25-34) pg MCHC 32.7 (32-36) g/dL RDW Std Deviation 52.5 H (36.4-46.3) fL RDW Coeff of Tiffanie 14.7 H (11.5-14.5) % Plt Count 244 (130-400) K/uL MPV 10.1 (7.4-10.4) fL Immature Gran % (Auto) 0.2 % Neut % (Auto) 89.1 % Lymph % (Auto) 6.3 % Custer % (Auto) 4.2 % Eos % (Auto) 0.1 % Baso % (Auto) 0.1 % Neut # (Auto) 9.68 H (1.4-6.5) K/uL Lymph # (Auto) 0.68 L (1.2-3.4) K/uL Custer # (Auto) 0.46 (0.11-0.59) K/uL Eos # (Auto) 0.01 (0-0.5) K/uL Baso # (Auto) 0.01 (0-0.2) K/uL Immature Gran # (Auto) 0.02 (0.00-0.02) K/uL Sodium 137 (136-145) mmol/L Potassium 3.8 (3.5-5.1) mmol/L Chloride 102 (98-107) mmol/L Carbon Dioxide 30 (21-32) mmol/L Anion Gap 5 (3-11) BUN 20 (6-23) mg/dl Creatinine 0.91 (0.6-1.2) mg/dl Est Cr Clr Drug Dosing 50.4 ml/min Est GFR ( Amer) 74.6 ml/min Est GFR (Non-Af Amer) 64.4 ml/min BUN/Creatinine Ratio 22.0 H (10-20) Glucose 142 H (70-99(Fasting)) mg/dl Calcium 8.4 L (8.5-10.1) mg/dl Total Bilirubin 0.7 (0.2-1.0) mg/dl AST 46 H (13-39) U/L ALT 38 (7-52) U/L Alkaline Phosphatase 65 (34-104) U/L Troponin I High Sens (0-14) pg/ml Total Protein 6.3 (6.0-8.3) gm/dl Albumin 3.4 (3.4-5.0) gm/dl Globulin 2.9 (2.5-4.0) gm/dl Albumin/Globulin Ratio 1.2 (0.9-2) Lipase 19 (11-82) U/L Urine Color Dark Yellow Urine Appearance Cloudy A (Clear) Urine pH 5.5 (4.5-7.5) Ur Specific [place] 1.026 (1.000-1.030) Urine Protein 1+ H (Negative) Urine Glucose (UA) Negative (Negative) Urine Ketones Trace H (Negative) Urine Blood Trace H (Negative) Urine Nitrite Positive A (Negative) Urine Bilirubin 1+ H (Negative) Urine Urobilinogen Negative (Negative) Ur Leukocyte Esterase 2+ H (Negative) Urine WBC (Auto) >30 H (0-5) /hpf Urine RBC (Auto) 5-10 H (0-4) /hpf U Hyaline Cast (Auto) 10-30 H (0-5) /lpf U Epithel Cells (Auto) >30 H (0-5) /lpf Urine Bacteria (Auto) 1+ H (Negative) SARS-CoV-2, RNA, NAAT (NEGATIVE) 05/13/22 05/13/22 Range/Units 15:55 17:51 WBC (4.8-10.8) K/uL RBC (4.2-5.4) M/uL Hgb (12.0-16.0) g/dL Hct (37-47) % MCV (80-100) fL MCH (25-34) pg MCHC (32-36) g/dL RDW Std Deviation (36.4-46.3) fL RDW Coeff of Tiffanie (11.5-14.5) % Plt Count (130-400) K/uL MPV (7.4-10.4) fL Immature Gran % (Auto) % Neut % (Auto) % Lymph % (Auto) % Custer % (Auto) % Eos % (Auto) % Baso % (Auto) % Neut # (Auto) (1.4-6.5) K/uL Lymph # (Auto) (1.2-3.4) K/uL Custer # (Auto) (0.11-0.59) K/uL Eos # (Auto) (0-0.5) K/uL Baso # (Auto) (0-0.2) K/uL Immature Gran # (Auto) (0.00-0.02) K/uL Sodium (136-145) mmol/L Potassium (3.5-5.1) mmol/L Chloride (98-107) mmol/L Carbon Dioxide (21-32) mmol/L Anion Gap (3-11) BUN (6-23) mg/dl Creatinine (0.6-1.2) mg/dl Est Cr Clr Drug Dosing ml/min Est GFR ( Amer) ml/min Est GFR (Non-Af Amer) ml/min BUN/Creatinine Ratio (10-20) Glucose (70-99(Fasting)) mg/dl Calcium (8.5-10.1) mg/dl Total Bilirubin (0.2-1.0) mg/dl AST (13-39) U/L ALT (7-52) U/L Alkaline Phosphatase (34-104) U/L Troponin I High Sens 16.1 H (0-14) pg/ml Total Protein (6.0-8.3) gm/dl Albumin (3.4-5.0) gm/dl Globulin (2.5-4.0) gm/dl Albumin/Globulin Ratio (0.9-2) Lipase (11-82) U/L Urine Color Urine Appearance (Clear) Urine pH (4.5-7.5) Ur Specific [place] (1.000-1.030) Urine Protein (Negative) Urine Glucose (UA) (Negative) Urine Ketones (Negative) Urine Blood (Negative) Urine Nitrite (Negative) Urine Bilirubin (Negative) Urine Urobilinogen (Negative) Ur Leukocyte Esterase (Negative) Urine WBC (Auto) (0-5) /hpf Urine RBC (Auto) (0-4) /hpf U Hyaline Cast (Auto) (0-5) /lpf U Epithel Cells (Auto) (0-5) /lpf Urine Bacteria (Auto) (Negative) SARS-CoV-2, RNA, NAAT NEGATIVE (NEGATIVE) Administered Medications Discontinued Medications Sodium Chloride (Nss 1000ml) 1,000 mls @ 999 mls/hr IV .Q1H1M ONE Stop: 06/16/22 15:23 Last Infusion: 05/13/22 16:19 Dose: 0 mls/hr Documented by: [id number] Admin: 05/13/22 14:54 Dose: 999 mls/hr Documented by: [id number] Ceftriaxone Sodium (Rocephin) 2,000 mg in 70 mls @ 140 mls/hr IV NOW STA Stop: 05/13/22 17:10 Last Infusion: 05/13/22 18:22 Dose: 0 mls/hr Documented by: [id number] Admin: 05/13/22 17:06 Dose: 140 mls/hr Documented by: [id number] Ioversol (Optiray 320 100ml) 95 ml IV ONCE ONE Stop: 05/13/22 15:46 Last Admin: 05/13/22 15:47 Dose: 95 ml Documented by: [id number] Imaging Data Radiologist's Impression: Abdomen/Pelvis CT 05/13/22 14:23 CT abd pelvis IV con only CLINICAL HISTORY: abd pain COMPARISON STUDY: 04/29/2020 CT DOSE: 949.43 mGy.cm TECHNIQUE: Standard CT of the Abdomen and Pelvis was performed with IV contrast. A dose lowering technique was utilized adhering to the principles of ALARA. Contrast Volume: Optiray 320, 95 ml. The patient did not receive oral contrast. FINDINGS: Lung base: The lung bases are clear. Abdominal cavity: There is no evidence for abdominal mass, adenopathy or ascites. Liver: There is homogeneous attenuation of the liver parenchyma. There is no evidence for enhancing mass lesion. Spleen: There is homogeneous attenuation of the splenic parenchyma. There is no enhancing mass lesion. Pancreas: There is homogeneous attenuation of the pancreatic parenchyma. There is no evidence for mass lesion or peripancreatic fluid collection. Gall Bladder: The gallbladder is well distended with no evidence for intraluminal calculi, wall thickening or pericholecystic edema. Adrenal glands: The adrenal glands are normal in size and attenuation. There is no evidence for enhancing mass lesion. Kidneys: There is homogeneous attenuation of the renal parenchyma bilaterally. There is no evidence for renal calculus or hydronephrosis. There is no evidence for enhancing mass. Sharply defined renal cysts are again seen bilaterally. Bowel: Small to moderate size hiatal hernia is present The bowel loops are normally placed within the abdomen and pelvis without evidence for dilatation or obstruction. There is no evidence for mass lesion. There is mild diverticulosis without evidence for diverticulitis. There are no inflammatory changes present. There is no evidence for free air. Bladder: Zuñiga catheter is present within the bladder. : There is no evidence for pelvic mass or adenopathy. There is no evidence for pelvic ascites. Vasculature: There is no evidence for aneurysmal dilatation of the abdominal aorta. IVC filter is in place. Osseous structures: There is no acute osseous pathology. Extensive degenerative changes are again seen within the spine with evidence for lumbar canal stenosis. Old ischiopubic rami fractures are seen. The patient is again status post left hip replacement. IMPRESSION: 1. No acute intra-abdominal or pelvic abnormality. 2. There is again a small to moderate size hiatal hernia. 3. There is again diverticulosis without evidence for diverticulitis. 4. Marked degenerative changes are again seen within the lumbar spine with evidence for lumbar canal stenosis. 5. Additional nonacute findings are delineated above. ACT 112: Negative or not required by law. Electronically signed by: Balwinder Zuniga M.D. 05/13/2022 4:[address] 05/13/22 14:23 CT SCAN OF THE BRAIN WITHOUT IV CONTRAST CLINICAL HISTORY: Dizziness. COMPARISON STUDY: CT of the brain dated 01/24/2018. TECHNIQUE: Unenhanced axial CT scan of the brain is performed from the vertex to the skull base. A dose lowering technique was utilized adhering to the principles of ALARA. FINDINGS: Brain parenchyma: There is age-related involutional change noting mild subcortical and periventricular microangiopathic disease. There is no hemorrhage, mass effect, or evidence of acute territorial ischemia by CT criteria. Pulido-white matter differentiation is preserved. No extra-axial fluid collection is seen. Ventricles, sulci, cisterns: Prominent secondary to involutional change. Intracranial vasculature: There is atherosclerotic calcification of the cavernous carotid arteries. Calvarium: Unremarkable. Sinuses and mastoids: Mucosal thickening is noted in the left sphenoid sinus. The remaining visualized paranasal sinuses are clear. The mastoid air cells are well pneumatized. Orbits: The bony orbits are grossly intact. There are bilateral ocular lens impl ants. IMPRESSION: There is no hemorrhage, mass effect, or evidence of acute territorial ischemia by CT criteria. ACT 112: Negative or not required by law. Electronically signed by: Germán Villa M.D. 05/13/2022 3:55 PM Discharge Plan Visit Data Chief Complaint: Abdominal Pain Stated Complaint: abd pain ED Provider: Sanchez Casarez Discharge Problem: UTI (urinary tract infection), Weakness Forms Stand Alone Forms: [facility] Prescriptions Prescriptions: No Action prednisone 10 mg tablet 10 mg PO QAM RF: 0 oxybutynin chloride 15 mg tablet extended release 24hr 15 mg PO QAM RF: 0 cholecalciferol (vitamin D3) 1,000 unit capsule 1,000 units PO QAM RF: 0 escitalopram oxalate [Lexapro] 20 mg tablet 20 mg PO QAM RF: 0 doxycycline monohydrate 100 mg Capsule 100 mg PO Q OTHER DAY RF: 0 Aubagio 14 mg tablet 14 mg PO QPM RF: 0 tizanidine [Zanaflex] 4 mg tablet 4 mg PO QID RF: 0 mrtlqvlk-sobupwwed-BQ 3.5-10,000-1 mg/mL-unit/mL-% solution 4 drp otic (ear) TID RF: 0 sucralfate 100 mg/mL suspension 10 ml PO QID RF: 0 omeprazole 40 mg capsule,delayed release(DR/EC) 40 mg PO QAM RF: 0 Eliquis 5 mg tablet 5 mg PO BID Qty: 60 RF: 0 atorvastatin 20 mg Tablet 20 mg PO QAM Qty: 30 RF: 1 clopidogrel 75 mg Tablet 75 mg PO QAM Qty: 30 RF: 1 amlodipine [Norvasc] 5 mg Tablet 5 mg PO QAM Qty: 30 RF: 1 Referrals Referrals: Jil Schmid DO [Primary Care Provider] - Discharge Problem: UTI (urinary tract infection) Qualifiers: Urinary tract infection type: acute cystitis Hematuria presence: without hematuria Qualified Code(s): N30.00 - Acute cystitis without hematuria
[2022-05-13 14:33] LABS: Basophils # (auto) 0.01 K/uL (0-0.2); Basophils % (auto) 0.1 %; Eosinophils # (auto) 0.01 K/uL (0-0.5); Eosinophils % (auto) 0.1 %; Hematocrit (blood only) 34.3 % (37-47); Hemoglobin 11.2 g/dL (12.0-16.0); Immature Granulocytes # (auto) 0.02 K/uL (0.00-0.02); Immature Granulocytes % (auto) 0.2 %; Lymphocytes # (auto) 0.68 K/uL (1.2-3.4); Lymphocytes % (auto) 6.3 %; Mean Corpuscular Hemoglobin 31.9 pg (25-34); Mean Corpuscular Hgb Conc 32.7 g/dL (32-36); Mean Corpuscular Volume 97.7 fL (80-100); Mean Platelet Volume 10.1 fL (7.4-10.4); Monocytes # (auto) 0.46 K/uL (0.11-0.59); Monocytes % (auto) 4.2 %; Neutrophils # (auto) 9.68 K/uL (1.4-6.5); Neutrophils % (auto) 89.1 %; Platelet Count 244 K/uL (130-400); RDW Coefficient of Variation 14.7 % (11.5-14.5); RDW Standard Deviation 52.5 fL (36.4-46.3); Red Blood Count 3.51 M/uL (4.2-5.4); White Blood Count 10.86 K/uL (4.8-10.8)
[2022-05-13 14:52] LABS: Albumin Globulin Ratio 1.2 (0.9-2); Albumin Level 3.4 gm/dl (3.4-5.0); Bilirubin,Total 0.7 mg/dl (0.2-1.0); Calcium 8.4 mg/dl (8.5-10.1); Creatinine Clr Calc Pharmacy 50.4 ml/min; Est GFR (African American) 74.6 ml/min; Est GFR (Non-African American) 64.4 ml/min; Globulin 2.9 gm/dl (2.5-4.0); Potassium 3.8 mmol/L (3.5-5.1); Total Protein 6.3 gm/dl (6.0-8.3)
[2022-05-13] MEDS ORDERED: OPTIRAY 320 100ml IV ONE (15:45)
[2022-05-13 15:56] LABS: Appearance Urine Cloudy (Clear); Bacteria Urine Automated 1+ (Negative); Blood Urine Trace (Negative); Color Urine Dark Yellow; Epithelial Cell Urine Auto >30 /lpf (0-5); Glucose Urine UA Negative (Negative); Ketones Urine Trace (Negative); Leukocyte Esterase Urine 2+ (Negative); Nitrite Urine Positive (Negative); Protein Urine 1+ (Negative); Specific Gravity Urine 1.026 (1.000-1.030); Urobilinogen Urine Negative (Negative); WBC Urine Automated >30 /hpf (0-5); pH Urine 5.5 (4.5-7.5)
--- NOTE | 2022-05-13 15:57 | CT Scan Report ---
CT SCAN OF THE BRAIN WITHOUT IV CONTRAST CLINICAL HISTORY: Dizziness. COMPARISON STUDY: CT of the brain dated 01/24/2018. TECHNIQUE: Unenhanced axial CT scan of the brain is performed from the vertex to the skull base. A do se lowering technique was utilized adhering to the principles of ALARA. FINDINGS: Brain parenchyma: There is age-related involutional change noting mild subcortical and periventricula r microangiopathic disease. There is no hemorrhage, mass effect, or evidence of acute territorial isc hemia by CT criteria. Pulido-white matter differentiation is preserved. No extra-axial fluid collection is seen. Ventricles, sulci, cisterns: Prominent secondary to involutional change. Intracranial vasculature: There is atherosclerotic calcification of the cavernous carotid arteries. Calvarium: Unremarkable. Sinuses and mastoids: Mucosal thickening is noted in the left sphenoid sinus. The remaining visualize d paranasal sinuses are clear. The mastoid air cells are well pneumatized. Orbits: The bony orbits are grossly intact. There are bilateral ocular lens implants. IMPRESSION: There is no hemorrhage, mass effect, or evidence of acute territorial ischemia by CT jimmy linder. ACT 112: Negative or not required by law. Electronically signed by: Germán Villa M.D. 05/13/2022 3:55 PM
[2022-05-13 16:03] LABS: Bilirubin Urine 1+ (Negative)
--- NOTE | 2022-05-13 16:18 | CT Scan Report ---
CT abd pelvis IV con only CLINICAL HISTORY: abd pain COMPARISON STUDY: 04/29/2020 CT DOSE: 949.43 mGy.cm TECHNIQUE: Standard CT of the Abdomen and Pelvis was performed with IV contrast. A dose lowering pb hnique was utilized adhering to the principles of ALARA. Contrast Volume: Optiray 320, 95 ml. The patient did not receive oral contrast. FINDINGS: Lung base: The lung bases are clear. Abdominal cavity: There is no evidence for abdominal mass, adenopathy or ascites. Liver: There is homogeneous attenuation of the liver parenchyma. There is no evidence for enhancing m ass lesion. Spleen: There is homogeneous attenuation of the splenic parenchyma. There is no enhancing mass lesion . Pancreas: There is homogeneous attenuation of the pancreatic parenchyma. There is no evidence for mas s lesion or peripancreatic fluid collection. Gall Bladder: The gallbladder is well distended with no evidence for intraluminal calculi, wall thick ening or pericholecystic edema. Adrenal glands: The adrenal glands are normal in size and attenuation. There is no evidence for enhan cing mass lesion. Kidneys: There is homogeneous attenuation of the renal parenchyma bilaterally. There is no evidence f or renal calculus or hydronephrosis. There is no evidence for enhancing mass. Sharply defined renal c ysts are again seen bilaterally. Bowel: Small to moderate size hiatal hernia is present The bowel loops are normally placed within the abdomen and pelvis without evidence for dilatation or obstruction. There is no evidence for mass les ion. There is mild diverticulosis without evidence for diverticulitis. There are no inflammatory carlton ges present. There is no evidence for free air. Bladder: Zuñiga catheter is present within the bladder. : There is no evidence for pelvic mass or adenopathy. There is no evidence for pelvic ascites. Vasculature: There is no evidence for aneurysmal dilatation of the abdominal aorta. IVC filter is in place. Osseous structures: There is no acute osseous pathology. Extensive degenerative changes are again see n within the spine with evidence for lumbar canal stenosis. Old ischiopubic rami fractures are seen. The patient is again status post left hip replacement. IMPRESSION: 1. No acute intra-abdominal or pelvic abnormality. 2. There is again a small to moderate size hiatal hernia. 3. There is again diverticulosis without evidence for diverticulitis. 4. Marked degenerative changes are again seen within the lumbar spine with evidence for lumbar canal stenosis. 5. Additional nonacute findings are delineated above. ACT 112: Negative or not required by law. Electronically signed by: Balwinder Zuniga M.D. 05/13/2022 4:16 PM
[2022-05-13] MEDS ORDERED: cefTRIAXone SODIUM 2,000 MG/70 ML BAG IV STA (16:41)
--- NOTE | 2022-05-13 18:18 | History & Physical Report ---
Date of Service May 13, 2022 Assessment & Plan (1) UTI (urinary tract infection): (2) Weakness: Plan: Admit to [facility] Patient presenting from home with reports of abdominal pain and worsening weakness x 5 days In the ED, CT ABD/pelvis unremarkable for acute findings. UA is suggestive of UTI Patient does not appear septic S/p IV ceftriaxone in the ED, will continue. Previous cultures reviewed, sensitive to ceftriaxone PT/OT (3) CAD (coronary artery disease): Plan: 50% proximal LAD lesion per cardiac cath 06/2021 Continue Plavix and statin (4) History of supraventricular tachycardia: Plan: Controlled on metoprolol (5) History of pulmonary embolism: (6) History of DVT (deep vein thrombosis): Plan: On Eliquis (7) Multiple sclerosis: Plan: On chronic prednisone, teriflunomide, tizanidine (8) DVT prophylaxis: Plan: On Eliquis History of Present Illness Chief Complaint: Abdominal Pain, Weakness Primary Care Provider: Jil Schmid DO 71 year old female with PMH MS (on chronic prednisone and Aubagio), non obstructive CAD (50% proximal LAD lesion 06/2021), DVT and PE on Eliquis, history of SVT, and other problems listed below who presents to the ED for evaluation of abdominal pain and generalized weakness. Patient reports abdominal pain started 5 days ago. Patient reports generalized abdominal pain. Describes pain as sharp at times. Had one small episode of vomiting. No hematemsis, coffee ground emesis, BRBPR, or dark tarry stools. Denies diarrhea. Patient reports chills however did not take her temperature. She denies urinary frequency and dysuria. Has been having difficulty ambulating due to worsening weakness this week and chronic shoulder pain is limiting use of walker. No chest pain or shortness of breath. Denies lightheadedness, dizziness, diaphoresis, and syncopal events. Was seen in PCPs office yesterday for complaints of ear pain and was given eardrops. In the ED, UA suggests UTI. Labs unremarkable. Patient is stable. She was given IV ceftriaxone and IVF. Allergies Allergy/AdvReac Type Severity Reaction Status Date / Time No Known Allergies Allergy Verified 05/13/22 14:38 Home Medications Medication Instructions Recorded Confirmed Type cholecalciferol (vitamin D3) 25 1,000 units PO QAM 09/18/18 05/13/22 History mcg (1,000 unit) capsule escitalopram oxalate 20 mg tablet 20 mg PO QAM tab 09/18/18 05/13/22 History (Lexapro) oxybutynin chloride 15 mg 15 mg PO QAM 09/18/18 05/13/22 History tablet,extended release 24 hr prednisone 10 mg tablet 10 mg PO QAM 09/18/18 05/13/22 History doxycycline monohydrate 100 mg 100 mg PO Q OTHER DAY 04/29/20 05/13/22 History capsule omeprazole 40 mg capsule,delayed 40 mg PO QAM 07/06/21 05/13/22 History release amlodipine 5 mg tablet (Norvasc) 5 mg PO QAM #30 tab 07/09/21 05/13/22 Rx apixaban 5 mg tablet (Eliquis) 5 mg PO BID #60 tab 07/09/21 05/13/22 Rx atorvastatin 20 mg tablet 20 mg PO QAM #30 tab 07/09/21 05/13/22 Rx clopidogrel 75 mg tablet 75 mg PO QAM #30 tab 07/09/21 05/13/22 Rx [id number] 3.5 4 drp OTIC (EAR) TID 05/13/22 05/13/22 History mg/mL-10,000 unit/mL-1 % ear solution sucralfate 100 mg/mL oral 10 ml PO QID 05/13/22 05/13/22 History suspension teriflunomide 14 mg tablet 14 mg PO QPM 05/13/22 05/13/22 History (Aubagio) tizanidine 4 mg tablet (Zanaflex) 4 mg PO QID 05/13/22 05/13/22 History Past Med/Surg History Medical History (Updated 05/13/22 @ 18:35 by KEVIN Bravo) Anemia Breast cancer Left (17 years ago) CAD (coronary artery disease) Non-obstructive per 06/2021 cardiac cath GERD (gastroesophageal reflux disease) History of DVT (deep vein thrombosis) History of GI bleed Upper GIB (2019) felt 2/2 NSAID use History of non-ST elevation myocardial infarction (NSTEMI) 06/2021 (had heart cath, no stents) History of pulmonary embolism History of supraventricular tachycardia Hx of gastric ulcer 02/2021 Hypertension Multiple sclerosis Follows with Dr. Walker/[facility] Stable Neurogenic bladder Osteoarthritis of right shoulder Osteoporosis Raynaud disease Surgical History H/O left mastectomy with lymph node removal History of appendectomy History of cardiac cath Cardiac cath (07/06/21; [facility]) > Right dominant coronary system. No evidence of aortic stenosis. Normal left ventricular filling pressures. Nonobstructive disease involving the ostial LAD. No evidence of acute coronary syndrome. Approximately 50% ostial stenosis of the LAD. There was some very mild disease at the ostium of the left circumflex. Recommendations: Medical management. History of colonoscopy History of esophagogastroduodenoscopy (EGD) EGD (02/09/22): MAC at [facility] History of open reduction and internal fixation (ORIF) procedure "left hip" History of tooth extraction Presence of intrathecal pump baclofen pump in place S/P IVC filter S/P partial hysterectomy Family History Mother Heart disorder Other No family history of adverse response to anesthesia Social History Smoking Status: Never smoker packs per day: 1; Years Smoked: 10; Second Hand Exposure: No; Hx Alcohol Use: No Hx Substance Use: No Preferred Language: [place] Communication Ability: Effective Visual Impairment: No Limitations 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 Serrano's addendum for physical exam Results & Data Results & Data ([facility]) Vital Signs (Past 12 Hours) Vital Signs Temp Pulse Pulse Resp BP BP Pulse Ox 05/13/22 14:00 86 17 104/81 96 05/13/22 12:57 36.8 C 102 H 20 136/83 95 Laboratory Results Short CBC 05/13/22 Range/Units 14:10 WBC 10.86 H (4.8-10.8) K/uL Hgb 11.2 L (12.0-16.0) g/dL Hct 34.3 L (37-47) % Plt Count 244 (130-400) K/uL BMP 05/13/22 14:10 Sodium 137 Potassium 3.8 Chloride 102 Carbon Dioxide 30 BUN 20 Creatinine 0.91 Glucose 142 H Calcium 8.4 L Liver Function 05/13/22 Range/Units 14:10 Total Bilirubin 0.7 (0.2-1.0) mg/dl AST 46 H (13-39) U/L ALT 38 (7-52) U/L Alkaline Phosphatase 65 (34-104) U/L Albumin 3.4 (3.4-5.0) gm/dl Urine 05/13/22 Range/Units 15:10 Urine Color Dark Yellow Urine Appearance Cloudy A (Clear) Urine pH 5.5 (4.5-7.5) Ur Specific [place] 1.026 (1.000-1.030) Urine Protein 1+ H (Negative) Urine Glucose (UA) Negative (Negative) Diagnostic Findings Abdomen/Pelvis CT 05/13/22 14:23 CT abd pelvis IV con only CLINICAL HISTORY: abd pain COMPARISON STUDY: 04/29/2020 CT DOSE: 949.43 mGy.cm TECHNIQUE: Standard CT of the Abdomen and Pelvis was performed with IV contrast. A dose lowering technique was utilized adhering to the principles of ALARA. Contrast Volume: Optiray 320, 95 ml. The patient did not receive oral contrast. FINDINGS: Lung base: The lung bases are clear. Abdominal cavity: There is no evidence for abdominal mass, adenopathy or ascites. Liver: There is homogeneous attenuation of the liver parenchyma. There is no evidence for enhancing mass lesion. Spleen: There is homogeneous attenuation of the splenic parenchyma. There is no enhancing mass lesion. Pancreas: There is homogeneous attenuation of the pancreatic parenchyma. There is no evidence for mass lesion or peripancreatic fluid collection. Gall Bladder: The gallbladder is well distended with no evidence for intraluminal calculi, wall thickening or pericholecystic edema. Adrenal glands: The adrenal glands are normal in size and attenuation. There is no evidence for enhancing mass lesion. Kidneys: There is homogeneous attenuation of the renal parenchyma bilaterally. There is no evidence for renal calculus or hydronephrosis. There is no evidence for enhancing mass. Sharply defined renal cysts are again seen bilaterally. Bowel: Small to moderate size hiatal hernia is present The bowel loops are normally placed within the abdomen and pelvis without evidence for dilatation or obstruction. There is no evidence for mass lesion. There is mild diverticulosis without evidence for diverticulitis. There are no inflammatory changes present. There is no evidence for free air. Bladder: Zuñiga catheter is present within the bladder. : There is no evidence for pelvic mass or adenopathy. There is no evidence for pelvic ascites. Vasculature: There is no evidence for aneurysmal dilatation of the abdominal aorta. IVC filter is in place. Osseous structures: There is no acute osseous pathology. Extensive degenerative changes are again seen within the spine with evidence for lumbar canal stenosis. Old ischiopubic rami fractures are seen. The patient is again status post left hip replacement. IMPRESSION: 1. No acute intra-abdominal or pelvic abnormality. 2. There is again a small to moderate size hiatal hernia. 3. There is again diverticulosis without evidence for diverticulitis. 4. Marked degenerative changes are again seen within the lumbar spine with evidence for lumbar canal stenosis. 5. Additional nonacute findings are delineated above. ACT 112: Negative or not required by law. Electronically signed by: Balwinder Zuniga M.D. 05/13/2022 4:[address] 05/13/22 14:23 CT SCAN OF THE BRAIN WITHOUT IV CONTRAST CLINICAL HISTORY: Dizziness. COMPARISON STUDY: CT of the brain dated 01/24/2018. TECHNIQUE: Unenhanced axial CT scan of the brain is performed from the vertex to the skull base. A dose lowering technique was utilized adhering to the principles of ALARA. FINDINGS: Brain parenchyma: There is age-related involutional change noting mild subcortical and periventricular microangiopathic disease. There is no hemorrhage, mass effect, or evidence of acute territorial ischemia by CT criteria. Pulido-white matter differentiation is preserved. No extra-axial fluid collection is seen. Ventricles, sulci, cisterns: Prominent secondary to involutional change. Intracranial vasculature: There is atherosclerotic calcification of the cavernous carotid arteries. Calvarium: Unremarkable. Sinuses and mastoids: Mucosal thickening is noted in the left sphenoid sinus. The remaining visualized paranasal sinuses are clear. The mastoid air cells are well pneumatized. Orbits: The bony orbits are grossly intact. There are bilateral ocular lens implants. IMPRESSION: There is no hemorrhage, mass effect, or evidence of acute territorial ischemia by CT criteria. ACT 112: Negative or not required by law. Electronically signed by: Germán Villa M.D. 05/13/2022 3:55 PM Code Status & VTE Plan VTE Prophylaxis Plan VTE Prophylaxis will be ordered: No Supervising Physician Co-Signing Physician Notes Date of Service: May 13, 2022 Patient seen and examined Patient reports feeling ill for the past 4 days. Reported severe generalized abdominal pain, not referred associated with nausea, dizziness and generalized weakness. Reported some fevers and chills at home and an episode of vomiting 4 days ago. On exam, General: Elderly woman in no acute distress Eyes: PERRL, conjunctivae normal, not pale, anicteric sclerae, EOM intact bilaterally ENMT: External ear and nose normal, oropharynx normal, no tragal tenderness, some erythema on right auricular canal. TM intact. Could not visualize left TM well due to ear wax Respiratory: Normal respiratory effort, no respiratory distress, lungs clear to auscultation, no crackles and no wheezes Cardiovascular: RRR S1 S2 Gastrointestinal (Abdomen): Abdomen is not distended, soft, non-tender to palpation, no guarding, no palpable hepatosplenomegaly, normal bowel sounds Musculoskeletal: +Trace pedal edema. Some bruise on right leg Genitourinary: No CVA tenderness Neurologic: Alert and oriented x 3, No focal weakness, sensation grossly intact Psychiatric: Alert and oriented x 3, euthymic affect, no depressed affect Labs showed WBC 10.8, Hb 11.2, Trop HS 16 Urinalysis showed positive urine nitrate, leukocyte esterase, WBC of more than 30. CT abdomen and pelvis did not show any acute abnormality but noted a small to moderate hiatal hernia, diverticulosis and degenerative changes in the lumbar spine Urinary tract infection Continue ceftriaxone Follow-up urine culture and de-escalate as needed Get PT/OT evaluation Continue home medications Agree with other plans as detailed by Dana BROWN (1) UTI (urinary tract infection) Hematuria presence: without hematuria Urinary tract infection type: acute cystitis Qualified Code(s): N30.00 - Acute cystitis without hematuria
--- NOTE | 2022-05-13 18:46 | Communication Note ---
Date of Service: May 13, 2022 Patient seen and examined Patient reports feeling ill for the past 4 days. Reported severe generalized abdominal pain, not referred associated with nausea, dizziness and generalized weakness. Reported some fevers and chills at home and an episode of vomiting 4 days ago. On exam, General: Elderly woman in no acute distress Eyes: PERRL, conjunctivae normal, not pale, anicteric sclerae, EOM intact bilaterally ENMT: External ear and nose normal, oropharynx normal, no tragal tenderness, some erythema on right auricular canal. TM intact. Could not visualize left TM well due to ear wax Respiratory: Normal respiratory effort, no respiratory distress, lungs clear to auscultation, no crackles and no wheezes Cardiovascular: RRR S1 S2 Gastrointestinal (Abdomen): Abdomen is not distended, soft, non-tender to palpation, no guarding, no palpable hepatosplenomegaly, normal bowel sounds Musculoskeletal: +Trace pedal edema. Some bruise on right leg Genitourinary: No CVA tenderness Neurologic: Alert and oriented x 3, No focal weakness, sensation grossly intact Psychiatric: Alert and oriented x 3, euthymic affect, no depressed af fect Labs showed WBC 10.8, Hb 11.2, Trop HS 16 Urinalysis showed positive urine nitrate, leukocyte esterase, WBC of more than 30. CT abdomen and pelvis did not show any acute abnormality but noted a small to moderate hiatal hernia, diverticulosis and degenerative changes in the lumbar spine Urinary tract infection Continue ceftriaxone Follow-up urine culture and de-escalate as needed Get PT/OT evaluation Continue home medications Agree with other plans as detailed by Dana BROWN
[2022-05-13] MEDS ORDERED: ACETAMINOPHEN 325 MG TAB PO PRN (22:01)
[2022-05-13] MEDS: SUCRALFATE 1 GM/10 ML UDC PO SCH (23:08)
[2022-05-13] MEDS: APIXABAN 5 MG TABLET PO SCH (23:08)
[2022-05-13] MEDS: tiZANidine HCL 4 MG TABLET PO SCH (23:09)
[2022-05-13] MEDS: NEOMYCIN/POLYMYX/HYDROCORT OT SOLN 10 ML BTL OT SCH (23:12)
[2022-05-14 07:28] LABS: Hematocrit (blood only) 34.8 % (37-47); Hemoglobin 11.2 g/dL (12.0-16.0); Mean Corpuscular Hemoglobin 30.9 pg (25-34); Mean Corpuscular Hgb Conc 32.2 g/dL (32-36); Mean Corpuscular Volume 95.9 fL (80-100); Mean Platelet Volume 9.7 fL (7.4-10.4); Platelet Count 263 K/uL (130-400); RDW Coefficient of Variation 14.7 % (11.5-14.5); RDW Standard Deviation 51.8 fL (36.4-46.3); Red Blood Count 3.63 M/uL (4.2-5.4); White Blood Count 5.56 K/uL (4.8-10.8)
[2022-05-14 08:06] LABS: BUN Creatinine Ratio 21.1 (10-20); Calcium 8.2 mg/dl (8.5-10.1); Creatinine Clr Calc Pharmacy 60.3 ml/min; Est GFR (African American) 92.8 ml/min; Potassium 3.8 mmol/L (3.5-5.1)
[2022-05-14] MEDS: SUCRALFATE 1 GM/10 ML UDC PO SCH ×4 (09:15→19:54)
[2022-05-14] MEDS: amLODIPine BESYLATE 5 MG TAB PO SCH (09:15)
[2022-05-14] MEDS: ATORVASTATIN 20 MG TAB PO SCH (09:17)
[2022-05-14] MEDS: CLOPIDOGREL BISULFATE 75 MG TAB PO SCH (09:17)
[2022-05-14] MEDS: APIXABAN 5 MG TABLET PO SCH ×2 (09:17→19:53)
[2022-05-14] MEDS: ESCITALOPRAM OXALATE 20 MG TAB PO SCH (09:18)
[2022-05-14] MEDS: NEOMYCIN/POLYMYX/HYDROCORT OT SOLN 10 ML BTL OT SCH ×3 (09:18→19:53)
[2022-05-14] MEDS: OXYBUTYNIN CHLORIDE XL 5 MG TABCR PO SCH (09:21)
[2022-05-14] MEDS: tiZANidine HCL 4 MG TABLET PO SCH ×4 (09:22→19:54)
[2022-05-14] MEDS: predniSONE 10 MG TABLET PO SCH (09:22)
[2022-05-14] MEDS: PANTOprazole 40 MG TAB PO SCH (09:23)
--- NOTE | 2022-05-14 11:37 | Electrocardiogram Report ---
Test Reason : Blood Pressure : / mmHG Vent. Rate : 101 BPM Atrial Rate : 101 BPM P-R Int : 146 ms QRS Dur : 062 ms QT Int : 338 ms P-R-T Axes : 050 017 046 degrees QTc Int : 438 ms Poor data quality, interpretation may be adversely affected Sinus tachycardia Possible Left atrial enlargement Abnormal ECG When compared with ECG of 20-AUG-2021 15:48, No significant change was found Confirmed by Edu Mckinnon ([id number]) on 05/14/2022 11:37:17 AM Referred By: REFERRED SELF Confirmed By:Jason Mckinnon
[2022-05-14] MEDS ORDERED: cefTRIAXone SODIUM 1,000 MG in DEXTROSE 5% 50 ML IV SCH (16:00)
[2022-05-14] MEDS ORDERED: DOXYCYCLINE HYCLATE 100 MG CAP PO SCH (19:00)
--- NOTE | 2022-05-14 20:06 | Hospitalist Progress Note ---
Date of Service May 14, 2022 Assessment & Plan (1) UTI (urinary tract infection): Plan: 71 year old female presenting from home with reports of abdominal pain and worsening weakness x 5 days. In the ED, CT ABD/pelvis unremarkable for acute findings. UA is suggestive of UTI Patient does not appear septic S/p IV ceftriaxone in the ED. 1) UTI- urine clx showing GNB- On empiric rocephin pending urine clx results (2) Weakness from above- Seen by OT. PT eval pending (3) CAD (coronary artery disease): 50% proximal LAD lesion per cardiac cath 06/2021 - Continue Plavix and statin (4) History of supraventricular tachycardia: Controlled on metoprolol (5) History of pulmonary embolism/DVT- on eliquis (6) Multiple sclerosis: On chronic prednisone, teriflunomide, tizanidine DVT prophylaxis: eliquis Dispo- pending urine clx results. Pending PT eval Admission and Anticipated Discharge Date Admission Date: May 13, 2022 Subjective Feels much better. She wanted to go home today. Denies any fever, chills, dysuria, flank pain, N/V. Physical Exam Physical Exam: General: Lying comfortably in bed, not in distress, on room air HEENT: EOMI, RANI, MMM Chest: Clear breath sounds bilaterally, no wheezes or crackles CVS: Regular rate and rhythm, normal heart sounds, no murmur Abdomen: Soft, non tender, not distended, normal bowel sounds Neuro: Awake, alert, oriented, conversing well, non focal Extremities: No cyanosis, clubbing or edema Results & Data Results & Data ([facility]) Vital Signs (Past 12 Hours) Vital Signs Temp Pulse Resp BP Pulse Ox 05/14/22 19:51 36.7 C 87 14 143/76 H 96 05/14/22 14:31 36.6 C 101 H 20 118/75 97 Laboratory Results Short CBC 05/14/22 Range/Units 07:07 WBC 5.56 (4.8-10.8) K/uL Hgb 11.2 L (12.0-16.0) g/dL Hct 34.8 L (37-47) % Plt Count 263 (130-400) K/uL BMP 05/14/22 07:07 Sodium 140 Potassium 3.8 Chloride 106 Carbon Dioxide 27 BUN 16 Creatinine 0.76 Glucose 89 Calcium 8.2 L Medications Administered Current Inpatient Medications Acetaminophen (Acetaminophen 325 Mg Tab) 650 mg PO Q4H PRN PRN Reason: pain/fever Stop: 06/12/22 22:00 Amlodipine Besylate (Amlodipine Besylate 5 Mg Tab) 5 mg PO QAM [facility] Stop: 06/13/22 08:59 Last Admin: 05/14/22 09:15 Dose: 5 mg Documented by: Apixaban (Apixaban 5 Mg Tablet) 5 mg PO BID [facility] Stop: 06/12/22 22:00 Last Admin: 05/14/22 19:53 Dose: 5 mg Documented by: Atorvastatin Calcium (Atorvastatin 20 Mg Tab) [address] [facility] Stop: 06/13/22 08:59 Last Admin: 05/14/22 09:17 Dose: 20 mg Documented by: Clopidogrel Bisulfate (Clopidogrel Bisulfate 75 Mg Tab) [address] [facility] Stop: 06/13/22 08:59 Last Admin: 05/14/22 09:17 Dose: 75 mg Documented by: Doxycycline Hyclate (Doxycycline Hyclate 100 Mg Cap) 100 mg PO Q48H [facility] Stop: 06/13/22 18:59 Last Admin: 05/14/22 18:41 Dose: 100 mg Documented by: Escitalopram Oxalate (Escitalopram Oxalate 20 Mg Tab) 20 mg PO QAM [facility] Stop: 06/13/22 08:59 Last Admin: 05/14/22 09:18 Dose: 20 mg Documented by: Ceftriaxone Sodium 1,000 mg/ (Dextrose) 60 mls @ 120 mls/hr IV Q24H [facility]; Protocol Stop: 05/19/22 15:59 Last Infusion: 05/14/22 16:50 Dose: Infused Documented by: Miscellaneous (Order Awaiting Action: Teriflunomide [Aubagio] 14 Mg Tablet) 1 ea N/A QS [facility] Stop: 06/13/22 00:00 Last Admin: 05/14/22 16:27 Dose: Not Given Documented by: Neomycin/Polymyxin/Hydrocortisone (Neomycin/Polymyx/Hydrocort Ot Soln 10 Ml Btl) 4 drops OT TID [facility] Stop: 05/23/22 22:00 Last Admin: 05/14/22 19:53 Dose: 4 drops Documented by: Oxybutynin Chloride (Oxybutynin Chloride Xl 5 Mg Tabcr) 15 mg PO [facility] Stop: 06/13/22 08:59 Last Admin: 05/14/22 09:21 Dose: 15 mg Documented by: Pantoprazole Sodium (Pantoprazole 40 Mg Tab) [address] [facility] Stop: 06/13/22 08:59 Last Admin: 05/14/22 09:23 Dose: 40 mg Documented by: Prednisone (Prednisone 10 Mg Tablet) 10 mg PO [facility] Stop: 06/13/22 08:59 Last Admin: 05/14/22 09:22 Dose: 10 mg Documented by: Sucralfate (Sucralfate 1 Gm/10 Ml Udc) 1 gm PO [facility] Stop: 06/12/22 22:00 Last Admin: 05/14/22 19:54 Dose: 1 gm Documented by: Tizanidine HCl (Tizanidine Hcl 4 Mg Tablet) 4 mg PO QID [facility] Stop: 06/12/22 22:00 Last Admin: 05/14/22 19:54 Dose: 4 mg Documented by: (1) UTI (urinary tract infection) Hematuria presence: without hematuria Urinary tract infection type: acute cystitis Qualified Code(s): N30.00 - Acute cystitis without hematuria
[2022-05-15] MEDS: SUCRALFATE 1 GM/10 ML UDC PO SCH ×2 (07:42→13:08)
[2022-05-15 07:48] LABS: Hematocrit (blood only) 35.2 % (37-47); Hemoglobin 11.3 g/dL (12.0-16.0); Mean Corpuscular Hgb Conc 32.1 g/dL (32-36); Mean Corpuscular Volume 96.7 fL (80-100); Mean Platelet Volume 9.8 fL (7.4-10.4); Platelet Count 313 K/uL (130-400); RDW Coefficient of Variation 14.7 % (11.5-14.5); RDW Standard Deviation 51.8 fL (36.4-46.3); Red Blood Count 3.64 M/uL (4.2-5.4); White Blood Count 5.01 K/uL (4.8-10.8)
[2022-05-15 08:09] LABS: BUN Creatinine Ratio 22.6 (10-20); Calcium 8.5 mg/dl (8.5-10.1); Creatinine Clr Calc Pharmacy 54.6 ml/min; Est GFR (African American) 82.2 ml/min; Est GFR (Non-African American) 70.9 ml/min; Potassium 3.7 mmol/L (3.5-5.1)
[2022-05-15] MEDS: amLODIPine BESYLATE 5 MG TAB PO SCH (08:39)
[2022-05-15] MEDS: PANTOprazole 40 MG TAB PO SCH (08:39)
[2022-05-15] MEDS: tiZANidine HCL 4 MG TABLET PO SCH ×2 (08:39→13:47)
[2022-05-15] MEDS: OXYBUTYNIN CHLORIDE XL 5 MG TABCR PO SCH (08:40)
[2022-05-15] MEDS: predniSONE 10 MG TABLET PO SCH (08:40)
[2022-05-15] MEDS: APIXABAN 5 MG TABLET PO SCH (08:41)
[2022-05-15] MEDS: ATORVASTATIN 20 MG TAB PO SCH (08:41)
[2022-05-15] MEDS: ESCITALOPRAM OXALATE 20 MG TAB PO SCH (08:41)
[2022-05-15] MEDS: CLOPIDOGREL BISULFATE 75 MG TAB PO SCH (08:42)
[2022-05-15] MEDS: NEOMYCIN/POLYMYX/HYDROCORT OT SOLN 10 ML BTL OT SCH ×2 (08:42→13:48)
[2022-05-15] MEDS ORDERED: CIPROFLOXACIN 500 MG TAB PO SCH (09:00)
[2022-05-15] MEDS ORDERED: CEFDINIR 300 MG CAP PO SCH (09:00)
--- NOTE | 2022-05-15 17:07 | Discharge Summary ---
Date of Service May 15, 2022 Admission HPI Per Admitting Provider 71 year old female with PMH MS (on chronic prednisone and Aubagio), non obstructive CAD (50% proximal LAD lesion 06/2021), DVT and PE on Eliquis, history of SVT, and other problems listed below who presents to the ED for evaluation of abdominal pain and generalized weakness. Patient reports abdominal pain started 5 days ago. Patient reports generalized abdominal pain. Describes pain as sharp at times. Had one small episode of vomiting. No hematemsis, coffee ground emesis, BRBPR, or dark tarry stools. Denies diarrhea. Patient reports chills however did not take her temperature. She denies urinary frequency and dysuria. Has been having difficulty ambulating due to worsening weakness this week and chronic shoulder pain is limiting use of walker. No chest pain or shortness of breath. Denies lightheadedness, dizziness, diaphoresis, and syncopal events. Was seen in PCPs office yesterday for complaints of ear pain and was given eardrops. In the ED, UA suggests UTI. Labs unremarkable. Patient is stable. She was given IV ceftriaxone and IVF. Admission Exam Per Admitting Provider General: Elderly woman in no acute distress Eyes: PERRL, conjunctivae normal, not pale, anicteric sclerae, EOM intact bilaterally ENMT: External ear and nose normal, oropharynx normal, no tragal tenderness, some erythema on right auricular canal. TM intact. Could not visualize left TM well due to ear wax Respiratory: Normal respiratory effort, no respiratory distress, lungs clear to auscultation, no crackles and no wheezes Cardiovascular: RRR S1 S2 Gastrointestinal (Abdomen): Abdomen is not distended, soft, non-tender to palpation, no guarding, no palpable hepatosplenomegaly, normal bowel sounds Musculoskeletal: +Trace pedal edema. Some bruise on right leg Genitourinary: No CVA tenderness Neurologic: Alert and oriented x 3, No focal weakness, sensation grossly intact Psychiatric: Alert and oriented x 3, euthymic affect, no depressed affect Principal Diagnosis UTI, Weakness due to UTI Discharge Exam General: Sitting comfortably in bed, not in distress, on room air HEENT: EOMI, RANI, MMM Chest: Clear breath sounds bilaterally, no wheezes or crackles CVS: Regular rate and rhythm, normal heart sounds, no murmur Abdomen: Soft, non tender, not distended, normal bowel sounds Neuro: Awake, alert, oriented, conversing well, non focal Extremities: No cyanosis, clubbing or edema daughters at bedside Discharge Data Allergies Allergy/AdvReac Type Severity Reaction Status Date / Time No Known Allergies Allergy Verified 05/13/22 14:38 Consultations 05/13/22 17:37 ED Decision to Admit Stat Ordered Studies 05/13/22 14:23 CT abd pelvis IV con only Stat CT head/brain wo con Stat Laboratory Results WBC 5.01 K/uL (4.8-10.8) 05/15/22 06:55 RBC 3.64 M/uL (4.2-5.4) L 05/15/22 06:55 Hgb 11.3 g/dL (12.0-16.0) L 05/15/22 06:55 Hct 35.2 % (37-47) L 05/15/22 06:55 MCV 96.7 fL (80-100) 05/15/22 06:55 MCH 31.0 pg (25-34) 05/15/22 06:55 MCHC 32.1 g/dL (32-36) 05/15/22 06:55 RDW Std Deviation 51.8 fL (36.4-46.3) H 05/15/22 06:55 RDW Coeff of Tiffanie 14.7 % (11.5-14.5) H 05/15/22 06:55 Plt Count 313 K/uL (130-400) 05/15/22 06:55 MPV 9.8 fL (7.4-10.4) 05/15/22 06:55 Immature Gran % (Auto) 0.2 % 05/13/22 14:10 Neut % (Auto) 89.1 % 05/13/22 14:10 Lymph % (Auto) 6.3 % 05/13/22 14:10 Winston % (Auto) 4.2 % 05/13/22 14:10 Eos % (Auto) 0.1 % 05/13/22 14:10 Baso % (Auto) 0.1 % 05/13/22 14:10 Neut # (Auto) 9.68 K/uL (1.4-6.5) H 05/13/22 14:10 Lymph # (Auto) 0.68 K/uL (1.2-3.4) L 05/13/22 14:10 Winston # (Auto) 0.46 K/uL (0.11-0.59) 05/13/22 14:10 Eos # (Auto) 0.01 K/uL (0-0.5) 05/13/22 14:10 Baso # (Auto) 0.01 K/uL (0-0.2) 05/13/22 14:10 Immature Gran # (Auto) 0.02 K/uL (0.00-0.02) 05/13/22 14:10 Sodium 141 mmol/L (136-145) 05/15/22 06:55 Potassium 3.7 mmol/L (3.5-5.1) 05/15/22 06:55 Chloride 106 mmol/L (98-107) 05/15/22 06:55 Carbon Dioxide 29 mmol/L (21-32) 05/15/22 06:55 Anion Gap 6 (3-11) 05/15/22 06:55 BUN 19 mg/dl (6-23) 05/15/22 06:55 Creatinine 0.84 mg/dl (0.6-1.2) 05/15/22 06:55 Est Cr Clr Drug Dosing 54.6 ml/min 05/15/22 06:55 Est GFR ( Amer) 82.2 ml/min 05/15/22 06:55 Est GFR (Non-Af Amer) 70.9 ml/min 05/15/22 06:55 BUN/Creatinine Ratio 22.6 (10-20) H 05/15/22 06:55 Glucose 86 mg/dl (70-99(Fasting)) 05/15/22 06:55 Calcium 8.5 mg/dl (8.5-10.1) 05/15/22 06:55 Total Bilirubin 0.7 mg/dl (0.2-1.0) 05/13/22 14:10 AST 46 U/L (13-39) H 05/13/22 14:10 ALT 38 U/L (7-52) 05/13/22 14:10 Alkaline Phosphatase 65 U/L (34-104) 05/13/22 14:10 Troponin I High Sens 17.3 pg/ml (0-14) H 05/13/22 17:50 Total Protein 6.3 gm/dl (6.0-8.3) 05/13/22 14:10 Albumin 3.4 gm/dl (3.4-5.0) 05/13/22 14:10 Globulin 2.9 gm/dl (2.5-4.0) 05/13/22 14:10 Albumin/Globulin Ratio 1.2 (0.9-2) 05/13/22 14:10 Lipase 19 U/L (11-82) 05/13/22 14:10 Urine Color Dark Yellow 05/13/22 15:10 Urine Appearance Cloudy (Clear) A 05/13/22 15:10 Urine pH 5.5 (4.5-7.5) 05/13/22 15:10 Ur Specific [place] 1.026 (1.000-1.030) 05/13/22 15:10 Urine Protein 1+ (Negative) H 05/13/22 15:10 Urine Glucose (UA) Negative (Negative) 05/13/22 15:10 Urine Ketones Trace (Negative) H 05/13/22 15:10 Urine Blood Trace (Negative) H 05/13/22 15:10 Urine Nitrite Positive (Negative) A 05/13/22 15:10 Urine Bilirubin 1+ (Negative) H 05/13/22 15:10 Urine Urobilinogen Negative (Negative) 05/13/22 15:10 Ur Leukocyte Esterase 2+ (Negative) H 05/13/22 15:10 Urine WBC (Auto) >30 /hpf (0-5) H 05/13/22 15:10 Urine RBC (Auto) 5-10 /hpf (0-4) H 05/13/22 15:10 U Hyaline Cast (Auto) 10-30 /lpf (0-5) H 05/13/22 15:10 U Epithel Cells (Auto) >30 /lpf (0-5) H 05/13/22 15:10 Urine Bacteria (Auto) 1+ (Negative) H 05/13/22 15:10 SARS-CoV-2, RNA, NAAT NEGATIVE (NEGATIVE) 05/13/22 17:51 Impressions Abdomen/Pelvis CT 05/13/22 14:23 CT abd pelvis IV con only CLINICAL HISTORY: abd pain COMPARISON STUDY: 04/29/2020 CT DOSE: 949.43 mGy.cm TECHNIQUE: Standard CT of the Abdomen and Pelvis was performed with IV contrast. A dose lowering technique was utilized adhering to the principles of ALARA. Contrast Volume: Optiray 320, 95 ml. The patient did not receive oral contrast. FINDINGS: Lung base: The lung bases are clear. Abdominal cavity: There is no evidence for abdominal mass, adenopathy or ascites. Liver: There is homogeneous attenuation of the liver parenchyma. There is no evidence for enhancing mass lesion. Spleen: There is homogeneous attenuation of the splenic parenchyma. There is no enhancing mass lesion. Pancreas: There is homogeneous attenuation of the pancreatic parenchyma. There is no evidence for mass lesion or peripancreatic fluid collection. Gall Bladder: The gallbladder is well distended with no evidence for intraluminal calculi, wall thickening or pericholecystic edema. Adrenal glands: The adrenal glands are normal in size and attenuation. There is no evidence for enhancing mass lesion. Kidneys: There is homogeneous attenuation of the renal parenchyma bilaterally. There is no evidence for renal calculus or hydronephrosis. There is no evidence for enhancing mass. Sharply defined renal cysts are again seen bilaterally. Bowel: Small to moderate size hiatal hernia is present The bowel loops are normally placed within the abdomen and pelvis without evidence for dilatation or obstruction. There is no evidence for mass lesion. There is mild diverticulosis without evidence for diverticulitis. There are no inflammatory changes present. There is no evidence for free air. Bladder: Zuñiga catheter is present within the bladder. : There is no evidence for pelvic mass or adenopathy. There is no evidence for pelvic ascites. Vasculature: There is no evidence for aneurysmal dilatation of the abdominal aorta. IVC filter is in place. Osseous structures: There is no acute osseous pathology. Extensive degenerative changes are again seen within the spine with evidence for lumbar canal stenosis. Old ischiopubic rami fractures are seen. The patient is again status post left hip replacement. IMPRESSION: 1. No acute intra-abdominal or pelvic abnormality. 2. There is again a small to moderate size hiatal hernia. 3. There is again diverticulosis without evidence for diverticulitis. 4. Marked degenerative changes are again seen within the lumbar spine with evidence for lumbar canal stenosis. 5. Additional nonacute findings are delineated above. ACT 112: Negative or not required by law. Electronically signed by: Balwinder Zuniga M.D. 05/13/2022 4:[address] 05/13/22 14:23 CT SCAN OF THE BRAIN WITHOUT IV CONTRAST CLINICAL HISTORY: Dizziness. COMPARISON STUDY: CT of the brain dated 01/24/2018. TECHNIQUE: Unenhanced axial CT scan of the brain is performed from the vertex to the skull base. A dose lowering technique was utilized adhering to the principles of ALARA. FINDINGS: Brain parenchyma: There is age-related involutional change noting mild subcortical and periventricular microangiopathic disease. There is no hemorrhage, mass effect, or evidence of acute territorial ischemia by CT criteria. Pulido-white matter differentiation is preserved. No extra-axial fluid collection is seen. Ventricles, sulci, cisterns: Prominent secondary to involutional change. Intracranial vasculature: There is atherosclerotic calcification of the cavernous carotid arteries. Calvarium: Unremarkable. Sinuses and mastoids: Mucosal thickening is noted in the left sphenoid sinus. The remaining visualized paranasal sinuses are clear. The mastoid air cells are well pneumatized. Orbits: The bony orbits are grossly intact. There are bilateral ocular lens implants. IMPRESSION: There is no hemorrhage, mass effect, or evidence of acute territorial ischemia by CT criteria. ACT 112: Negative or not required by law. Electronically signed by: Germán Villa M.D. 05/13/2022 3:55 PM Hospital Course (1) UTI (urinary tract infection): 71 year old female presenting from home with reports of abdominal pain and worsening weakness x 5 days. In the ED, CT ABD/pelvis unremarkable for acute findings. UA is suggestive of UTI Patient did not appear septic and was given IV ceftriaxone in the ED. 1) UTI- urine clx showing Klebsieslla pneumoniae- sensitive to ceftriaxone, FQ- S/p rocephin. With her MS, will avoid FQ. Will discharge on vantin for 4 more days to complete antibiotic course. (2) Weakness from above- Seen by PT/OT- she has significantly improved and cleared for discharge home- no home therapy required. (3) CAD (coronary artery disease): 50% proximal LAD lesion per cardiac cath 06/2021 - Continue Plavix and statin (4) History of supraventricular tachycardia: Controlled on metoprolol (5) History of pulmonary embolism/DVT- on eliquis (6) Multiple sclerosis: On chronic prednisone, teriflunomide, tizanidine Comfortable and stable for discharge home. Family at bedside. Answered all questions. Total Time Total Time Spent Total Time Spent (In Minutes): 40 Discharge Plan Discharge Items Patient Disposition: Home - Self-Care Reason For Visit: CONTRAINDICATED Discharge Diagnosis: UTI Activity: Resume your previous activity Non-emergency contact: Primary Care Provider Call non-emergency contact if: you have any medication questions, your symptoms worsen, your pain is not controlled and you have a fever Follow-up/Referrals: Jil Schmid DO [Primary Care Provider] - Diet: Regular Addtl Attending Provider Instructions: Continue vantin twice daily for 4 more days Follow up with your family doctor Pending Studies at Discharge: No Stand-Alone Forms: My [employer], Smoking Cessation Medications and DC Order Prescriptions: New cefpodoxime 200 mg tablet 200 mg PO BID Qty: 8 RF: 0 Continued prednisone 10 mg tablet 10 mg PO QAM RF: 0 oxybutynin chloride 15 mg tablet extended release 24hr 15 mg PO QAM RF: 0 cholecalciferol (vitamin D3) 1,000 unit capsule 1,000 units PO QAM RF: 0 escitalopram oxalate [Lexapro] 20 mg tablet 20 mg PO QAM RF: 0 doxycycline monohydrate 100 mg Capsule 100 mg PO Q OTHER DAY RF: 0 Aubagio 14 mg tablet 14 mg PO QPM RF: 0 tizanidine [Zanaflex] 4 mg tablet 4 mg PO QID RF: 0 [id number]-obdocbecp-ZU 3.5-10,000-1 mg/mL-unit/mL-% solution 4 drp otic (ear) TID RF: 0 sucralfate 100 mg/mL suspension 10 ml PO QID RF: 0 omeprazole 40 mg capsule,delayed release(DR/EC) 40 mg PO QAM RF: 0 Eliquis 5 mg tablet 5 mg PO BID Qty: 60 RF: 0 atorvastatin 20 mg Tablet 20 mg PO QAM Qty: 30 RF: 1 clopidogrel 75 mg Tablet 75 mg PO QAM Qty: 30 RF: 1 amlodipine [Norvasc] 5 mg Tablet 5 mg PO QAM Qty: 30 RF: 1 Discharge Orders: Discharge Order (Routine); Ordered 05/15/22 Ordered By: Roland Bain Admission Data Admit Date/Time: 05/14/22 20:30 Attending Provider: Roland Bain Admit Provider: Haylie Serrano I. Primary Care Provider: Jil Schmid Other Providers: Haylie Serrano I. Other Interventions: Discharge Summary Assessment (RN) Last Done: 05/15/22 14:55
== END 2022-05-15 15:43 | disposition home or self-care (01) | DRG 690 ==
LOC: ED 12:51 → 3W 12:51 → SUATTDRO 18:07 → 3W 21:45

== ENCOUNTER 2022-05-25 06:55 | Inpatient (IN) ==
--- NOTE | 2022-03-01 13:55 | PAT Medication Instructions ---
Medication Instructions Date of Service March 01, 2022 Home Medications Medication Instructions Recorded amlodipine 5 mg tablet (Norvasc) 5 mg PO QAM #30 tab 07/09/21 apixaban 5 mg tablet (Eliquis) 5 mg PO BID #60 tab 07/09/21 atorvastatin 20 mg tablet 20 mg PO QAM #30 tab 07/09/21 clopidogrel 75 mg tablet 75 mg PO QAM #30 tab 07/09/21 cholecalciferol (vitamin D3) 25 mcg (1,000 unit) capsule 1,000 units PO QAM escitalopram oxalate 20 mg tablet (Lexapro) 20 mg PO QAM oxybutynin chloride 15 mg tablet,extended release 24 hr 15 mg PO QAM prednisone 10 mg tablet 10 mg PO QAM tizanidine 4 mg capsule (Zanaflex) 4 mg PO QID doxycycline monohydrate 100 mg capsule 100 mg PO Q OTHER DAY teriflunomide 14 mg tablet 14 mg PO QPM omeprazole 40 mg capsule,delayed release 40 mg PO QAM amlodipine 5 mg tablet (Norvasc) 5 mg PO QAM apixaban 5 mg tablet (Eliquis) 5 mg PO BID atorvastatin 20 mg tablet 20 mg PO QAM clopidogrel 75 mg tablet 75 mg PO QAM baclofen 1 dose INTRATHECAL UD Continue as directed baclofen 1 dose INTRATHECAL UD doxycycline monohydrate 100 mg capsule 100 mg PO Q OTHER DAY ASK your prescriber and surgeon apixaban 5 mg tablet (Eliquis) 5 mg PO BID clopidogrel 75 mg tablet 75 mg PO QAM teriflunomide 14 mg tablet 14 mg PO QPM DO NOT take the morning of surgery cholecalciferol (vitamin D3) 25 mcg (1,000 unit) capsule 1,000 units PO QAM oxybutynin chloride 15 mg tablet,extended release 24 hr 15 mg PO QAM tizanidine 4 mg capsule (Zanaflex) 4 mg PO QID Take morning of surgery With a small sip of water, OTHERWISE NOTHING TO EAT OR DRINK AFTER MIDNIGHT: escitalopram oxalate 20 mg tablet (Lexapro) 20 mg PO QAM prednisone 10 mg tablet 10 mg PO QAM omeprazole 40 mg capsule,delayed release 40 mg PO QAM amlodipine 5 mg tablet (Norvasc) 5 mg PO QAM atorvastatin 20 mg tablet 20 mg PO QAM Other Notes If you have any questions please call us at [phone] or [phone] or [phone] or [phone]
--- NOTE | 2022-03-02 14:08 | Anesthesiology Consultation ---
Date of Service March 02, 2022 Assessment & Plan (1) Encounter for pre-operative examination: - COVID screening: Per assessment on 03/02: No known COVID-19 positive contacts or current COVID-19 related symptoms. Travel screen negative. Patient vaccinated. Surgeon arranging preop COVID testing. Awaiting results. - S/P EGD (02/09/22): MAC at [facility] - Cardiology office visit (01/25/22): "Coronary artery disease with a non STEMI earlier this year in a cardiac catheterization indicating nonobstructive coronary artery disease with the most significant being a 50% ostial LAD June 2021.. History of DVT and pulmonary emboli.. Plan: The patient is doing well clinically and will continue her current medications. I plan follow-up again in 6 months or earlier if needed." - LUE restriction s/p mastectomy with LND Chart Review Chart Review: Acceptable Risk for Surgery and Patient seen in Pre Admission Te sting History Surgery Operation Date: 03/29/22 12:30 Proposed Procedures p Right Total Shoulder Arthroplasty Reverse - Lex Oneil DO Height/Weight Height: 5 ft 4 in Weight: 65.9 kg Allergies Allergy/AdvReac Type Severity Reaction Status Date / Time No Known Allergies Allergy Verified 02/26/22 15:18 Medications Home Medications Medication Instructions Recorded Confirmed Last Taken cholecalciferol (vitamin D3) 25 1,000 units PO QAM 09/18/18 03/02/22 02/18/22 mcg (1,000 unit) capsule escitalopram oxalate 20 mg tablet 20 mg PO QAM tab 09/18/18 03/02/22 02/19/22 09:00 (Lexapro) oxybutynin chloride 15 mg 15 mg PO QAM 09/18/18 03/02/22 02/19/22 09:00 tablet,extended release 24 hr prednisone 10 mg tablet 10 mg PO QAM 09/18/18 03/02/22 02/19/22 09:00 tizanidine 4 mg capsule (Zanaflex) 4 mg PO QID cap 09/12/19 03/02/22 02/19/22 10:00 doxycycline monohydrate 100 mg 100 mg PO Q OTHER DAY 04/29/20 03/02/22 02/17/22 capsule teriflunomide 14 mg tablet 14 mg PO QPM 03/13/21 03/02/22 02/18/22 omeprazole 40 mg capsule,delayed 40 mg PO QAM 07/06/21 03/02/22 02/18/22 release amlodipine 5 mg tablet (Norvasc) 5 mg PO QAM #30 tab 07/09/21 03/02/22 02/18/22 apixaban 5 mg tablet (Eliquis) 5 mg PO BID #60 tab 07/09/21 03/02/22 02/17/22 atorvastatin 20 mg tablet 20 mg PO QAM #30 tab 07/09/21 03/02/22 02/18/22 clopidogrel 75 mg tablet 75 mg PO QAM #30 tab 07/09/21 03/02/22 02/18/22 08:00 baclofen 1 dose INTRATHECAL UD 02/26/22 03/02/22 Unknown Past Medical History Medical History Anemia Breast cancer Left (17 years ago) CAD (coronary artery disease) Non-obstructive per 06/2021 cardiac cath GERD (gastroesophageal reflux disease) History of DVT (deep vein thrombosis) History of GI bleed Upper GIB (2019) felt 2/2 NSAID use History of non-ST elevation myocardial infarction (NSTEMI) 06/2021 (had heart cath, no stents) History of pulmonary embolism History of supraventricular tachycardia Hx of gastric ulcer 02/2021 Hypertension Multiple sclerosis Follows with Dr. Walker/[facility] Stable Neurogenic bladder Osteoporosis Raynaud disease Exercise / Class Metabolic Activity III < 4 Walking/Shop/Light housework (walker PRN (but using wheelchair moreso in setting of worsening shoulder pain)) Past Family History Family History Other No family history of adverse response to anesthesia Past Surgical History Surgical History H/O left mastectomy with lymph node removal History of appendectomy History of cardiac cath Cardiac cath (07/06/21; [facility]) > Right dominant coronary system. No evidence of aortic stenosis. Normal left ventricular filling pressures. Nonobstructive disease involving the ostial LAD. No evidence of acute coronary syndrome. Approximately 50% ostial stenosis of the LAD. There was some very mild disease at the ostium of the left circumflex. Recommendations: Medical management. History of colonoscopy History of esophagogastroduodenoscopy (EGD) EGD (02/09/22): MAC at [facility] History of open reduction and internal fixation (ORIF) procedure "left hip" History of tooth extraction Presence of intrathecal pump baclofen pump in place S/P IVC filter S/P partial hysterectomy Past Anesthesia History No Hx of Anesthesia Complications and No Family Hx of Anesthesia Complications History of PONV No Hx of PONV and No Hx of Motion Sickness Social History Smoking Status: Former smoker tobacco type: cigarettes Do You Dip or Chew Tobacco: No Smoking End Date: Quit 35 years ago Hx Alcohol Use: No Alcohol type: wine Hx Substance Use: No substance use type: does not use Review of Systems Patient denies chest pain, shortness of breath, fever, chills, cough, wheezing, palpitations. Physical Exam Vital Signs VITALS BP 126/83 P 85 TEMP WNL SP02 98%RA RESP 18 PHYSICAL Full cervical extension range of motion. Full TMJ range of motion. TMD 3 finger breaths Mallampati Score 3 Dentition: intact, several implants Lungs: clear throughout to auscultation Cardiac: regular rate and rhythm, no murmurs noted Spine: normal Carotid arteries: negative bruit Extremities: no edema Lab Results Anesthesia Preop Results Results Anesthesia Widget: PT 11.0 Seconds (9.0-12.0) 03/02/22 PTT 25.4 Seconds (21.0-31.0) 03/02/22 INR 1.0 (0.9-1.1) 03/02/22 Blood Type A Positive 03/02/22 Antibody Screen NEGATIVE 03/02/22 Testing Laboratory Results 03/01/22 WBC 9.60 H/H 12.5/39.8 PLATELETS 265 SODIUM 145 POTASSIUM 4.2 CHLORIDE 104 CO2 26 BUN 23 CREATININE 0.8 GLUCOSE 109 Electrocardiogram Date: 01/25/22 Normal sinus rhythm at 89 bpm. 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 Chest X-Ray Date: 09/15/21 Bibasilar atelectasis. Lungs are otherwise clear with normal vascularity. Scoliosis. Large hiatal hernia. IVC filter. Echocardiogram Date: 07/07/21 EF 60-65%. No regional wall motion abnormalities. Mild concentric LVH. Grade 1 diastolic dysfunction. Mild AV sclerosis. Mild atherosclerotic plaque in the ascending aorta. Mild LAD. Stress Test Date: 11/04/21 Type: DSE This echo is negative for inducible ischemia. EF 55-60%. Grade 1 diastolic dysfunction. Moderate valve sclerosis without stenosis. Mild AR. Mild TR. Grade 1 diastolic dysfunction. 103% MPHR. Cardiac Catheterization Date: 07/08/21 Right dominant coronary system. No evidence of aortic stenosis. Normal left ventricular filling pressures. Nonobstructive disease involving the ostial LAD. No evidence of acute coronary syndrome. Approximately 50% ostial stenosis of the LAD. There was some very mild disease at the ostium of the left circumflex. Recommendations: Medical management. Other Testing Chest MRI (01/04/22): Moderate bilateral glenohumeral joint effusions with distention of the bilateral subcoracoid bursa, right greater than left. The distended right subcoracoid bursa extends into the supraclavicular and subpectoral soft tissues and likely corresponds the patient's palpable abnormality. This is likely due to the long-standing advanced degenerative change within the bilateral glenohumeral joints. There is enhancement of the distended synovium within the bilateral glenohumeral joints, right greater than left. This is nonspecific but could represent a reactive synovitis from the long-standing degenerative change. A superimposed infection is considered less likely but would be impossible to exclude by imaging alone. No soft tissue masses identified within the chest. 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
--- NOTE | 2022-05-20 09:57 | Anesthesiology Consultation ---
Date of Service May 20, 2022 Assessment & Plan Chart Review Chart Review: Acceptable Risk for Surgery and Patient NOT seen in Pre Admission Testing Consults Requested none ASA ASA4 Proposed Anesthesia Anesthesia Type: General Regional Anesthesia Line Insertion: Arterial line History Surgery Operation Date: 05/25/22 07:15 Proposed Procedures p Right Total Shoulder Arthroplasty Solitario - Lex Oneil DO Height/Weight Height: 5 ft 4 in Weight: 65.771 kg Allergies Allergy/AdvReac Type Severity Reaction Status Date / Time No Known Allergies Allergy Verified 05/20/22 09:05 Medications Home Medications Medication Instructions Recorded Confirmed Last Taken cholecalciferol (vitamin D3) 25 1,000 units PO QAM 09/18/18 05/20/22 05/13/22 mcg (1,000 unit) capsule escitalopram oxalate 20 mg tablet 20 mg PO QAM tab 09/18/18 05/20/22 05/13/22 (Lexapro) oxybutynin chloride 15 mg 15 mg PO QAM 09/18/18 05/20/22 05/13/22 tablet,extended release 24 hr prednisone 10 mg tablet 10 mg PO QAM 09/18/18 05/20/22 05/13/22 doxycycline monohydrate 100 mg 100 mg PO Q OTHER DAY 04/29/20 05/20/22 05/12/22 capsule omeprazole 40 mg capsule,delayed 40 mg PO QAM 07/06/21 05/20/22 05/13/22 release amlodipine 5 mg tablet (Norvasc) 5 mg PO QAM #30 tab 07/09/21 05/20/22 05/13/22 apixaban 5 mg tablet (Eliquis) 5 mg PO BID #60 tab 07/09/21 05/20/22 05/13/22 08:00 atorvastatin 20 mg tablet 20 mg PO QAM #30 tab 07/09/21 05/20/22 05/13/22 clopidogrel 75 mg tablet 75 mg PO QAM #30 tab 07/09/21 05/20/22 05/13/22 [id number]-[id number] 3.5 4 drp OTIC (EAR) TID 05/13/22 05/20/22 Unknown mg/mL-10,000 unit/mL-1 % ear solution sucralfate 100 mg/mL oral 10 ml PO QID 05/13/22 05/20/22 Unknown suspension teriflunomide 14 mg tablet 14 mg PO QPM 05/13/22 05/20/22 05/12/22 (Aubagio) tizanidine 4 mg tablet (Zanaflex) 4 mg PO QID 05/13/22 05/20/22 05/13/22 12:00 Past Medical History Medical History Anemia CAD (coronary artery disease) Non-obstructive per 06/2021 cardiac cath GERD (gastroesophageal reflux disease) History of DVT (deep vein thrombosis) ? DATE *OVER 10 YEARS AGO History of GI bleed Upper GIB (2019) felt 2/2 NSAID use History of non-ST elevation myocardial infarction (NSTEMI) 06/2021 (had heart cath, no stents) History of pulmonary embolism ? DATE History of supraventricular tachycardia Hx of gastric ulcer 02/2021 HX: breast cancer SURGERY WITH RADIATION/CHEMO Hypertension Multiple sclerosis Follows with Dr. Walker/[facility] Stable Neurogenic bladder SELF CATH 2-3 X'S PER DAY *RECENT HOSPITALIZATION FOR UTI Osteoarthritis of right shoulder Osteoporosis Raynaud disease Exercise / Class Metabolic Activity III < 4 Walking/Shop/Light housework Past Family History Family History Mother Heart disorder Other No family history of adverse response to anesthesia Past Surgical History Surgical History H/O left mastectomy with lymph node removal>LEFT ARM RESTRICTION History of appendectomy History of cardiac cath Cardiac cath (07/06/21; [facility]) > Right dominant coronary system. No evidence of aortic stenosis. Normal left ventricular filling pressures. Nonobstructive disease involving the ostial LAD. No evidence of acute daniels ry syndrome. Approximately 50% ostial stenosis of the LAD. There was some very mild disease at the ostium of the left circumflex. Recommendations: Medical management. History of colonoscopy History of esophagogastroduodenoscopy (EGD) History of open reduction and internal fixation (ORIF) procedure "left hip" History of tooth extraction Presence of intrathecal pump baclofen pump in place "HAS NO REMOTE OR INSTRUCTIONS" S/P IVC filter S/P partial hysterectomy Past Anesthesia History No Hx of Anesthesia Complications and No Family Hx of Anesthesia Complications History of PONV No Hx of PONV and No Hx of Motion Sickness Social History Smoking Status: Former smoker tobacco type: cigarettes Do You Dip or Chew Tobacco: No Smoking End Date: Quit 20 years ago Hx Alcohol Use: No Alcohol type: wine Hx Substance Use: No substance use type: does not use Testing Electrocardiogram Date: 05/13/22 Findings: + ST @ (at 101) Echocardiogram Date: 07/07/21 EF: 60% LV Function: normal RWMA: + none Other Findings: + LVH (mild) and + diastolic dysfunction (grade 1) Valvular Disease: + no significant valvular disease and + pertinent finding (ascending aorta athersclerotic plaque) Cardiac Catheterization Date: 07/08/21 Findings: + RCA (nl), + LMA (nl), + LCX (mild ostial disease) and + pertinent finding (50% ostial)
--- NOTE | 2022-05-20 13:38 | History & Physical Report ---
Date of Service May 20, 2022 Assessment & Plan (1) Osteoarthritis of right shoulder: We will proceed with a right reverse shoulder arthroplasty. Postoperatively she will be started back on her Eliquis and placed in an arm sling. We will keep her overnight in the hospital for postoperative medical management. She plans to return to [facility] upon discharge. History of Present Illness Chief Complaint: Osteoarthritis right shoulder. Primary Care Provider: Jil Schmid DO Kandy is a pleasant 71-year-old female with multiple sclerosis who ambulates with a wheelchair. Unfortunately she has been dealing with years of chronic worsening right shoulder pain. X-rays and clinical examination were diagnostic for advanced arthritis of the right shoulder with significant glenoid bone loss. After failing years of conservative treatment, she has elected proceed with a right reverse shoulder arthroplasty. Allergies Allergy/AdvReac Type Severity Reaction Status Date / Time No Known Allergies Allergy Verified 05/20/22 09:05 Home Medications Medication Instructions Recorded Confirmed Type cholecalciferol (vitamin D3) 25 1,000 units PO QAM 09/18/18 05/20/22 History mcg (1,000 unit) capsule escitalopram oxalate 20 mg tablet 20 mg PO QAM tab 09/18/18 05/20/22 History (Lexapro) oxybutynin chloride 15 mg 15 mg PO QAM 09/18/18 05/20/22 History tablet,extended release 24 hr prednisone 10 mg tablet 10 mg PO QAM 09/18/18 05/20/22 History doxycycline monohydrate 100 mg 100 mg PO Q OTHER DAY 04/29/20 05/20/22 History capsule omeprazole 40 mg capsule,delayed 40 mg PO QAM 07/06/21 05/20/22 History release amlodipine 5 mg tablet (Norvasc) 5 mg PO QAM #30 tab 07/09/21 05/20/22 Rx apixaban 5 mg tablet (Eliquis) 5 mg PO BID #60 tab 07/09/21 05/20/22 Rx atorvastatin 20 mg tablet 20 mg PO QAM #30 tab 07/09/21 05/20/22 Rx clopidogrel 75 mg tablet 75 mg PO QAM #30 tab 07/09/21 05/20/22 Rx mbqmienf-mhmnqfszl-vbklmggri 3.5 4 drp OTIC (EAR) TID 05/13/22 05/20/22 History mg/mL-10,000 unit/mL-1 % ear solution sucralfate 100 mg/mL oral 10 ml PO QID 05/13/22 05/20/22 History suspension teriflunomide 14 mg tablet 14 mg PO QPM 05/13/22 05/20/22 History (Aubagio) tizanidine 4 mg tablet (Zanaflex) 4 mg PO QID 05/13/22 05/20/22 History Past Med/Surg History Medical History Anemia CAD (coronary artery disease) Non-obstructive per 06/2021 cardiac cath GERD (gastroesophageal reflux disease) History of DVT (deep vein thrombosis) ? DATE *OVER 10 YEARS AGO History of GI bleed Upper GIB (2019) felt 2/2 NSAID use History of non-ST elevation myocardial infarction (NSTEMI) 06/2021 (had heart cath, no stents) History of pulmonary embolism ? DATE History of supraventricular tachycardia Hx of gastric ulcer 02/2021 HX: breast cancer SURGERY WITH RADIATION/CHEMO Hypertension Multiple sclerosis Follows with Dr. Walker/[facility] Stable Neurogenic bladder SELF CATH 2-3 X'S PER DAY *RECENT HOSPITALIZATION FOR UTI Osteoarthritis of right shoulder Osteoporosis Raynaud disease Surgical History H/O left mastectomy with lymph node removal>LEFT ARM RESTRICTION History of appendectomy History of cardiac cath Cardiac cath (07/06/21; [facility]) > Right dominant coronary system. No evidence of aortic stenosis. Normal left ventricular filling pressures. Nonobstructive disease involving the ostial LAD. No evidence of acute coron sumit syndrome. Approximately 50% ostial stenosis of the LAD. There was some very mild disease at the ostium of the left circumflex. Recommendations: Medical management. History of colonoscopy History of esophagogastroduodenoscopy (EGD) History of open reduction and internal fixation (ORIF) procedure "left hip" History of tooth extraction Presence of intrathecal pump baclofen pump in place "HAS NO REMOTE OR INSTRUCTIONS" S/P IVC filter S/P partial hysterectomy Family History Mother Heart disorder Other No family history of adverse response to anesthesia Social History Smoking Status: Former smoker packs per day: 1; Years Smoked: 10; Second Hand Exposure: No; Hx Alcohol Use: No Hx Substance Use: No Preferred Language: Japanese Communication Ability: Effective Visual Impairment: No Limitations Hearing Ability: Normal 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 Physical Exam On physical examination the right shoulder, she has limited range of motion. She has weakness with full can testing and external rotation. She has crepitus throughout. Constitutional WD/WN, vitals as above Eyes PERRL, conjunctivae normal, anicteric sclerae ENMT external ear and nose normal, oropharynx normal Neck trachea midline, no thyromegaly Respiratory normal respiratory effort Cardiovascular RRR, no murmur, no edema Gastrointestinal (Abdomen) normal bowel sounds, soft, nontender, no hepatosplenomegaly Psychiatric A+Ox3, euthymic affect Results & Data Results & Data Laboratory Results . Diagnostic Findings X-rays of the right shoulder show advanced osteoarthritis with joint space narrowing, osteophyte formation, and [id number] articulation. PG Care Time/CCT Total # of Minutes Spent Total Time Spent with Patient: Total time spent is greater than 50% in coordination of care (as documented) at patient's floor/unit and/or counseling patient: Coding Level of Care Code None Diagnoses Osteoarthritis of right shoulder M19.011
[~2022-05-25 06:55] MED LIST changes: +BUPIVACAINE 0.5 % 5 MG/1 ML PF 10ML VIAL ONE; -CHOL100027 PO; -DALF10TA PO; -DXY50 PO; -ESCI1TAB10 PO; +FAMOTIDINE 20 MG TAB PO SCH; -FERR1TAB62 PO; +GABAPENTIN 300 MG CAP PO SCH; -GADAVIST IV PRN; -GLAT1INJ SC; +Ketorolac (*for OR use only*) 30 MG, dexAMETHasone 4 MG, KETAMINE HCL (**OR use only) 1... INFIL SCH; +LR 15ML/HR IV SCH; +LR 60ML/HR IV SCH; -MULT-513 PO; -OXYB15TA12 PO; -PANT40TA PO; -PRED10TA PO; -RISE150T PO; +TRANEXAMIC ACID 1,000 MG **IV Intra-op IV SCH; +TRANEXAMIC ACID 1,000 MG **IV Pre-op IV SCH; -WARF-246 PO; -ZNF4 PO; +ceFAZolin 1000MG 1,000 MG/7.5 ML SYR IV SCH; +dexAMETHasone 4 MG TAB PO SCH
[2022-05-25] MEDS ORDERED: fentaNYL citrate 100 MCG/2 ML VIAL ONE (08:07)
[2022-05-25] MEDS ORDERED: MIDAZOLAM HCL 1 MG/ML 2ML VIAL ONE (08:07)
[2022-05-25] MEDS ORDERED: LIDOCAINE 2% 2 ML VIAL/AMP(20MG/ML) INFIL ONE (08:11)
[2022-05-25] MEDS ORDERED: ONDANSETRON INJ 2 MG/ML 2 ML VIAL ONE (08:11)
[2022-05-25] MEDS ORDERED: DEXAMETHASONE SOD INJ 4 MG/ML VIAL ONE (08:11)
[2022-05-25] MEDS ORDERED: PROPOFOL IV EMULSION 10 MG/ML 20 ML VIAL IV ONE (08:11)
--- NOTE | 2022-05-25 08:57 | History & Physical Bridge Note ---
Date of Service May 25, 2022 History & Physical Bridge Note I have examined the patient, reviewed the History & Physical and in the interval since the performance of the History & Physical I have noted the following changes of clinical significance: no changes noted
[2022-05-25] MEDS ORDERED: ATROPINE SULFATE 0.1 MG/ML 10ML SYR IV PRN (09:02)
[2022-05-25] MEDS ORDERED: ONDANSETRON INJ 2 MG/ML 2 ML VIAL IV PRN ×2 (09:02→14:32)
[2022-05-25] MEDS ORDERED: ePHEDrine sulfate 50 MG/ML AMP IV PRN (09:02)
[2022-05-25] MEDS ORDERED: fentaNYL citrate 100 MCG/2 ML VIAL IV PRN (09:02)
[2022-05-25] MEDS ORDERED: ORTHO JOINT ANESTHETIC ONE (09:14)
[2022-05-25] MEDS ORDERED: ePHEDrine sulfate 50 MG/ML AMP ONE (10:41)
[2022-05-25] MEDS ORDERED: PHENYLEPHRINE HCL 10 MG/ML VIAL ONE (10:41)
--- NOTE | 2022-05-25 11:08 | Operative Report ---
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 long head of the biceps tendon Post-Op Diagnosis: Degenerative Joint Disease Right Shoulder with tendinopathy long head of the biceps tendon I identified the patient and participated in the time-out.: Yes Procedure Operation Date: 05/25/22 09:05 Actual Procedures p Right Reverse Total Shoulder Arthroplasty(Right) with open biceps tenodesis as a distinct and separate procedure (modifier 59)- Lex Oneil DO Surgeon Lex Oneil DO [employer] Table Edger Lex Pennington PAC Estimated Blood Loss 100 Findings Consistent with Post-Op Diagnosis Specimens Right humeral head Complications none Disposition Disposition: Recovery Room Description of Procedure A CPT code modifier 59: The long head of the biceps tendon was enlarged and inflamed consistent with tendinopathy. A tenodesis was opted. This was a separate and distinct portion of the procedure. For these reasons, a CPT code modifier 59 will be added to this case. Implants used: I used a [employer] Comprehensive reverse total shoulder arthroplasty system with a size 12 press fit micro humeral stem, a standard humeral tray and a standard humeral bearing, a VRS baseplate with a 6.5 mm central screw and several peripheral locking screws, and a size 36 eccentric glenosphere. Kandy arrived at [facility] for the above procedure. She was seen in the preoperative holding area and the operative extremity was identified and signed. She was given a preoperative antibiotic, TXA, and an interscalene nerve block. She was taken back to the operating room, laid on table in supine position, and put under general anesthesia. She was then put into the beachchair position. The shoulder was then prepped and draped in sterile fashion. A timeout was done and the patient and the operative extremity was properly identified. A deltopectoral approach was used. Dissection was taken down through the fascia and the deltoid was retracted laterally and the conjoined tendon was retracted medially. The anterior shoulder was exposed. The biceps groove was opened up and the biceps tendon was examined extensively. The biceps tendon demonstrated enlargement and inflammatory changes consistent with longstanding inflammation in the context of osteoarthritis and cuff arthropathy. The long head of the biceps tendon was then tenodesed to the upper border of the pectoralis major. This was a separate and distinct portion of the procedure. The subscapularis was then directly released off the lesser tuberosity with a peel technique. The inferior capsule was released and the humeral head was dislocated. A canal finding reamer was sent down the center of the humeral canal. Sequential reaming up to a size 12 reamer was done. Off that reamer, a proximal humeral resection guide was placed. The proximal humerus was resected at 135 of inclination and 25 of retroversion. Osteophytes were then removed and the glenoid was exposed. Time was spent doing a complete capsular and labral release. A VR S implant was then placed carefully on the glenoid. Time was spent ensuring proper placement of the implant. Once the implant was properly seated, to pins were placed to hold it in place. A 6.5 mm central screw was then placed followed by 4 peripheral locking screws. A 36 eccentric glenosphere was then impacted into place. Surrounding soft tissues were then injected with 100 cc an orthopedic pain control cocktail. The proximal humerus was then exposed. Sequential broaching of the humerus up to a size 12 broach was done. Off that broach a standard humeral tray was trialed. The shoulder was then reduced, brought through a full range of motion, and felt to be stable. The shoulder was then dislocated and the broach was removed. The final size 12 micro press-fit humeral stem was then impacted into place. A standard humeral bearing was then snapped onto a standard humeral tray. The humeral tray was then impacted onto the humeral stem. The shoulder was once again reduced, brought through a full range of motion, and felt to be stable. The subscapularis was then tenodesed back to the lesser tuberosity with transosseous FiberWire sutures and side to side sutures with the arm in 45 of external rotation. A dilute betadyne lavage was then done for 3 minutes. The joint was then irrigated with normal saline solution. Hemostasis was obtained. The interval was closed with 2-0 Vicryl suture. The skin was then closed with 2-0 Vicryl and omid. A Silverlon dressing was placed and the arm was rested in a regular arm sling. She was then extubated and transferred to a hospital bed. She taken to the postanesthesia care unit in stable condition. She tolerated the procedure well. Lex Pennington PA-C, was present for the entire procedure. He was critical for patient positioning, prepping, draping, retraction exposure, wound closure and application of sterile dressing. I attest to the content of the Intraoperative Record and any orders documented therein. Any exceptions are noted below.
--- NOTE | 2022-05-25 11:54 | Anesthesiology Progress Note ---
Date of Service May 25, 2022 Anesthesia Post Procedure Vital Signs Vital Signs: Temp Pulse Pulse Resp BP Pulse Ox 05/25/22 11:50 97.2 F L 93 H 14 159/81 H 95 05/25/22 07:00 97.7 F 81 18 154/101 H 98 Pain Intensity Right Shoulder: Pain Intensity: 5 Transfer of Care Handoff Completed per policy Notes Mental Status: alert / awake / arousable and participated in evaluation Patient Amnestic to Procedure: Yes Nausea / Vomiting: adequately controlled Pain: adequately controlled Airway Patency, RR, SpO2: stable & adequate BP & HR: stable & adequate Hydration State: stable & adequate Anesthetic Complications: no major complications apparent and Pt Satisfied with anesthetic care
--- NOTE | 2022-05-25 12:19 | XRay Report ---
XR shoulder RT min 2V routine HISTORY: 71 years-old Female Post shoulder surgery right shoulder arthroplasty COMPARISON: CT right shoulder 03/02/2022 TECHNIQUE: 2 views of the right shoulder FINDINGS: Right shoulder total joint arthroplasty demonstrates satisfactory alignment. No acute fracture, dislo cation or unexpected opaque foreign body. Overlying skin omid are noted along with gauze material. Expected postoperative soft tissue swelling with deep tissue air. Linear lucency projects over the d istal clavicle may be projectional. IMPRESSION: Total joint arthroplasty with expected postoperative changes. ACT 112: Negative or not required by law. The above report was generated using voice recognition software. It may contain grammatical, syntax o r spelling errors. Electronically signed by: Nasir Mccauley M.D. 05/25/2022 12:17 PM
[2022-05-25] MEDS ORDERED: MAGNESIUM HYDROXIDE SUSP 30 ML UDC PO PRN (14:32)
[2022-05-25] MEDS ORDERED: bisacodyL 10 MG SUPP PR PRN (14:32)
[2022-05-25] MEDS ORDERED: NALOXONE HCL 0.4 MG/1 ML VIAL/CARP IV PRN (14:32)
[2022-05-25] MEDS ORDERED: HYDROmorphone INJ 0.5 MG/0.5 ML SYR IV PRN (14:32)
[2022-05-25] MEDS ORDERED: METOCLOPRAMIDE HCL INJ 5 MG/ML 2 ML VIAL IV PRN (14:32)
[2022-05-25] MEDS: SODIUM CHLORIDE 0.9% 1000ML 1,000 ML IV SCH (16:27)
[2022-05-25] MEDS: ACETAMINOPHEN 500 MG TAB PO SCH ×2 (16:28→21:06)
[2022-05-25] MEDS: KETOROLAC TROMETHAMINE 15 MG/ML VIAL IV SCH ×2 (16:28→20:36)
[2022-05-25] MEDS: ceFAZolin 2000MG 2,000 MG/15 ML SYR IV SCH (16:46)
[2022-05-25] MEDS: oxyCODONE HCL IR 5 MG TAB (IMMEDIATE RELEASE) PO PRN (17:23)
[2022-05-25] MEDS: DOXYCYCLINE HYCLATE 100 MG CAP PO SCH (18:46)
[2022-05-25] MEDS: NEOMYCIN/POLYMYX/HYDROCORT OT SOLN 10 ML BTL OT SCH ×2 (18:46→20:36)
[2022-05-25] MEDS: tiZANidine HCL 4 MG TABLET PO SCH ×3 (18:47→20:36)
[2022-05-25] MEDS: SUCRALFATE 1 GM TAB PO SCH ×2 (18:49→20:36)
[2022-05-25] MEDS: SENNA 8.6 MG TAB PO SCH (20:36)
[2022-05-25] MEDS: DOCUSATE SODIUM 100 MG CAP PO SCH (20:36)
[2022-05-25] MEDS: APIXABAN 5 MG TABLET PO SCH (20:36)
[2022-05-26] MEDS: SODIUM CHLORIDE 0.9% 1000ML 1,000 ML IV SCH (01:34)
[2022-05-26] MEDS: ceFAZolin 2000MG 2,000 MG/15 ML SYR IV SCH (01:35)
[2022-05-26] MEDS: KETOROLAC TROMETHAMINE 15 MG/ML VIAL IV SCH ×4 (01:35→20:38)
--- NOTE | 2022-05-26 06:11 | Orthopedic Progress Note ---
Date of Service May 26, 2022 Assessment & Plan (1) Status post reverse total replacement of right shoulder: Overall she is doing fairly well. She is not having much pain in the right shoulder. She will be seen by physical therapy today for ambulation and range of motion exercises. She was hoping to be discharged to [facility]. She would like to talk to case management first and see what all of her options are. She stable for [facility] today [facility] Full discharge instructions have been done. Amy Gaitan was seen and examined at bedside this morning. Overall she is doing fairly well. She denies any much pain in the right shoulder. She was able to get some sleep last night. She has no complaints. Review of Systems All systems reviewed & are unremarkable except as noted in HPI & below. Physical Exam On physical examination the right shoulder, the dressing is clean and dry. She still does not have any motion of her hand or her wrist. The nerve block is still in effect. She is wearing her sling as instructed. Results & Data Results & Data Laboratory Results . Diagnostic Findings Postoperative x-rays of the right shoulder show the prosthesis to be in anatomic alignment without any evidence of fracture, desiccation, or loosening. PG Care Time/CCT Total # of Minutes Spent Total Time Spent with Patient: Total time spent is greater than 50% in coordination of care (as documented) at patient's floor/unit and/or counseling patient: Coding Level of Care Code 47055 Post Operative Follow-Up Diagnoses Status post reverse total replacement of right shoulder Z96.611
[2022-05-26] MEDS: ACETAMINOPHEN 500 MG TAB PO SCH ×3 (06:31→21:03)
[2022-05-26] MEDS ORDERED: dexAMETHasone 4 MG TAB PO SCH (08:00)
[2022-05-26] MEDS: APIXABAN 5 MG TABLET PO SCH ×2 (08:30→20:38)
[2022-05-26] MEDS: SUCRALFATE 1 GM TAB PO SCH ×4 (08:31→20:38)
[2022-05-26] MEDS: DOCUSATE SODIUM 100 MG CAP PO SCH ×2 (08:31→20:40)
[2022-05-26] MEDS: amLODIPine BESYLATE 5 MG TAB PO SCH (08:31)
[2022-05-26] MEDS: PANTOprazole 40 MG TAB PO SCH (08:31)
[2022-05-26] MEDS: CLOPIDOGREL BISULFATE 75 MG TAB PO SCH (08:32)
[2022-05-26] MEDS: ESCITALOPRAM OXALATE 20 MG TAB PO SCH (08:33)
[2022-05-26] MEDS: OXYBUTYNIN CHLORIDE XL 5 MG TABCR PO SCH (08:33)
[2022-05-26] MEDS: predniSONE 10 MG TABLET PO SCH (08:33)
[2022-05-26] MEDS: MULTIVITAMIN TAB PO SCH (08:33)
[2022-05-26] MEDS: NEOMYCIN/POLYMYX/HYDROCORT OT SOLN 10 ML BTL OT SCH ×3 (08:34→20:38)
[2022-05-26] MEDS: tiZANidine HCL 4 MG TABLET PO SCH ×4 (08:34→20:38)
[2022-05-26] MEDS: ATORVASTATIN 20 MG TAB PO SCH (08:34)
[2022-05-26] MEDS: TERIFLUNOMIDE 14 MG PO SCH (17:30)
[2022-05-26] MEDS: SENNA 8.6 MG TAB PO SCH (20:38)
[2022-05-27] MEDS: KETOROLAC TROMETHAMINE 15 MG/ML VIAL IV SCH ×3 (03:25→09:05)
[2022-05-27] MEDS: ACETAMINOPHEN 500 MG TAB PO SCH ×3 (05:21→21:02)
[2022-05-27] MEDS: NEOMYCIN/POLYMYX/HYDROCORT OT SOLN 10 ML BTL OT SCH ×3 (09:00→20:52)
[2022-05-27] MEDS: DOXYCYCLINE HYCLATE 100 MG CAP PO SCH (09:01)
[2022-05-27] MEDS: predniSONE 10 MG TABLET PO SCH (09:01)
[2022-05-27] MEDS: tiZANidine HCL 4 MG TABLET PO SCH ×2 (09:01→15:25)
[2022-05-27] MEDS: PANTOprazole 40 MG TAB PO SCH (09:01)
[2022-05-27] MEDS: SUCRALFATE 1 GM TAB PO SCH ×4 (09:02→20:52)
[2022-05-27] MEDS: ATORVASTATIN 20 MG TAB PO SCH (09:02)
[2022-05-27] MEDS: CLOPIDOGREL BISULFATE 75 MG TAB PO SCH (09:02)
[2022-05-27] MEDS: APIXABAN 5 MG TABLET PO SCH ×2 (09:03→20:53)
[2022-05-27] MEDS: MULTIVITAMIN TAB PO SCH (09:03)
[2022-05-27] MEDS: ESCITALOPRAM OXALATE 20 MG TAB PO SCH (09:03)
[2022-05-27] MEDS: amLODIPine BESYLATE 5 MG TAB PO SCH (09:03)
[2022-05-27] MEDS: DOCUSATE SODIUM 100 MG CAP PO SCH ×2 (09:04→21:02)
[2022-05-27] MEDS: OXYBUTYNIN CHLORIDE XL 5 MG TABCR PO SCH (09:04)
--- NOTE | 2022-05-27 12:36 | Orthopedic Progress Note ---
Date of Service May 27, 2022 Assessment & Plan (1) Status post reverse total replacement of right shoulder: Overall she is doing very well. She is not having much pain in the right shoulder. She will be seen by physical therapy today for ambulation and range of motion exercises. She is planning to be discharged to [facility] tomorrow. Amy Gaitan was seen and examined at bedside today. Overall she is doing very well. She is having little to no pain in her right shoulder. She is wearing her sling as instructed and has no complaints.. Review of Systems All systems reviewed & are unremarkable except as noted in HPI & below. Physical Exam On physical examination of the right shoulder, the dressing is clean and dry. She is wearing her sling. She has full motion of her right wrist and her right hand.. Results & Data Results & Data Laboratory Results . Diagnostic Findings . PG Care Time/CCT Total # of Minutes Spent Total Time Spent with Patient: Total time spent is greater than 50% in coordination of care (as documented) at patient's floor/unit and/or counseling patient: Coding Level of Care Code 63494 Post Operative Follow-Up Diagnoses Status post reverse total replacement of right shoulder Z96.611
[2022-05-27] MEDS ORDERED: Nursing to Pharmacy Communication SCH (14:15)
[2022-05-27] MEDS: TIZANIDINE HCL 4 MG PO SCH ×2 (16:54→20:53)
[2022-05-27] MEDS: SENNA 8.6 MG TAB PO SCH (20:52)
[2022-05-27] MEDS: TERIFLUNOMIDE 14 MG PO SCH (20:53)
[2022-05-28] MEDS: ACETAMINOPHEN 500 MG TAB PO SCH ×3 (06:10→21:50)
--- NOTE | 2022-05-28 09:14 | Orthopedic Progress Note ---
Date of Service May 28, 2022 Assessment & Plan (1) Status post reverse total replacement of right shoulder: Overall she is doing fairly well. She is not having much pain in the right shoulder. She has been working well with physical therapy. [facility]. Amy Gaitan was seen and examined at bedside this morning. Overall she is doing fairly well. She denies any much pain in the right shoulder. She is been working well with physical therapy. She has no complaints. Review of Systems All systems reviewed & are unremarkable except as noted in HPI & below. Physical Exam On physical examination of the right shoulder, the dressing is clean and dry. She is wearing her sling as instructed.. Results & Data Results & Data Laboratory Results . Diagnostic Findings . PG Care Time/CCT Total # of Minutes Spent Total Time Spent with Patient: Total time spent is greater than 50% in coordination of care (as documented) at patient's floor/unit and/or counseling patient: Coding Level of Care Code 14957 Post Operative Follow-Up Diagnoses Status post reverse total replacement of right shoulder Z96.611
[2022-05-28] MEDS: CLOPIDOGREL BISULFATE 75 MG TAB PO SCH (09:21)
[2022-05-28] MEDS: APIXABAN 5 MG TABLET PO SCH ×2 (09:22→20:29)
[2022-05-28] MEDS: TIZANIDINE HCL 4 MG PO SCH ×5 (09:22→20:32)
[2022-05-28] MEDS: OXYBUTYNIN CHLORIDE XL 5 MG TABCR PO SCH (09:22)
[2022-05-28] MEDS: amLODIPine BESYLATE 5 MG TAB PO SCH (09:22)
[2022-05-28] MEDS: ESCITALOPRAM OXALATE 20 MG TAB PO SCH (09:22)
[2022-05-28] MEDS: MULTIVITAMIN TAB PO SCH (09:22)
[2022-05-28] MEDS: predniSONE 10 MG TABLET PO SCH (09:23)
[2022-05-28] MEDS: ATORVASTATIN 20 MG TAB PO SCH (09:23)
[2022-05-28] MEDS: PANTOprazole 40 MG TAB PO SCH (09:23)
[2022-05-28] MEDS: SUCRALFATE 1 GM TAB PO SCH ×4 (09:23→20:29)
[2022-05-28] MEDS: NEOMYCIN/POLYMYX/HYDROCORT OT SOLN 10 ML BTL OT SCH ×3 (09:24→20:30)
[2022-05-28] MEDS: DOCUSATE SODIUM 100 MG CAP PO SCH ×2 (09:27→20:30)
[2022-05-28] MEDS: SENNA 8.6 MG TAB PO SCH (20:30)
[2022-05-28] MEDS: TERIFLUNOMIDE 14 MG PO SCH (20:32)
[2022-05-29] MEDS: ACETAMINOPHEN 500 MG TAB PO SCH (05:12)
--- NOTE | 2022-05-29 07:28 | Orthopedic Progress Note ---
Date of Service May 29, 2022 Assessment & Plan (1) Status post reverse total replacement of right shoulder: Overall she is doing very well. She denies any much pain in her shoulder. She will be seen by physical therapy again today for ambulation and range of motion exercises. She stable for discharge to [facility] later today. She will follow with orthopedics in 2 weeks. Amy Gaitan was seen and examined at bedside this morning. Overall she is doing fairly well. She is having much pain in the right shoulder. She has been working well with physical therapy. She has no complaints. Review of Systems All systems reviewed & are unremarkable except as noted in HPI & below. Physical Exam On physical examination the right shoulder, the dressing had to be changed. She is wearing her sling as instructed. She has full motion of her hand and wrist. Results & Data Results & Data Laboratory Results . Diagnostic Findings . PG Care Time/CCT Total # of Minutes Spent Total Time Spent with Patient: Total time spent is greater than 50% in coordination of care (as documented) at patient's floor/unit and/or counseling patient: Coding Level of Care Code 94184 Post Operative Follow-Up Diagnoses Status post reverse total replacement of right shoulder Z96.611
[2022-05-29] MEDS: oxyCODONE HCL IR 5 MG TAB (IMMEDIATE RELEASE) PO PRN (07:30)
--- NOTE | 2022-05-29 07:32 | Discharge Summary ---
Date of Service May 29, 2022 Admission HPI (Per Admitting) Kandy is a pleasant 71-year-old female with multiple sclerosis who ambulates with a wheelchair. Unfortunately she has been dealing with years of chronic worsening right shoulder pain. X-rays and clinical examination were diagnostic for advanced arthritis of the right shoulder with significant glenoid bone loss. After failing years of conservative treatment, she has elected proceed with a right reverse shoulder arthroplasty. Admission Exam (Per Admitting) On physical examination the right shoulder, she has limited range of motion. She has weakness with full can testing and external rotation. She has crepitus throughout. Principal Diagnosis Same as "Discharge Diagnosis" noted below under Discharge Instructions. Discharge Exam On physical examination the right shoulder, the dressing had to be changed. She is wearing her sling as instructed. She has full motion of her hand and wrist. Discharge Data Procedures Performed Operation Date: 05/25/22 09:05 Actual Procedures p Right Reverse Total Shoulder Arthroplasty(Right) - Lex Oneil DO Ordered Studies 05/25/22 05:00 US - OR guided needle placemen Routine Hospital Course (1) Status post reverse total replacement of right shoulder: On May 25, 2022 Kandy arrived at [facility] and underwent a right reverse shoulder replaced without complication. She had a general anesthetic and a right interscalene nerve block. Postoperatively she was placed in a sling and transferred to the general orthopedic floors. Her hospital course was uneventful. On postop day #1 her vital signs were stable and her pain was well controlled. She was able to participate well with physical therapy doing ambulation and range of motion exercises. She was dealing with a little bit of hypertension postoperatively but she was asymptomatic with that. She had elected to go to [facility] postoperatively. On postop day #2 she continued to do well. She was staying for pain control and further physical therapy. On postop day #3 she did well with the shoulder. She was receiving pain medications and another session of physical therapy. On postop day #4 a bed was available at [facility] for discharge. She was then discharged with the above instructions. She will follow-up with orthopedics in 2 weeks. PG Care Time/CCT Total # of Minutes Spent Total Time Spent with Patient: Total time spent is greater than 50% in coordination of care (as documented) at patient's floor/unit and/or counseling patient: Discharge Plan Discharge Items Patient Disposition: [facility] Reason For Visit: Degenerative Joint Disease Shoulder, Chronic Rotat Discharge Diagnosis: Right reverse shoulder replacement Activity: Per Instructions section Non-emergency contact: Surgeon Call non-emergency contact if: your wound has increased redness and your wound has increased drainage Follow-up/Referrals: Jil Schmid DO [Primary Care Provider] - Diet: Regular Addtl Attending Provider Instructions: Activity and Therapy Recommendations: * If you are using [facility] then therapy will be provided at your home until they feel you have accomplished all of your goals. * If you are using [facility] then Physical Therapy will be provided until they feel you are ready to start Outpatient Physical Therapy. * If you are not using home therapy then Outpatient Physical Therapy should start about 3-5 days from your day of surgery. Therapy will last about 8-12 weeks * Wear your sling for 3 weeks, unless otherwise instructed. You may remove your sling to shower and to dress, but otherwise, you should be in your sling at all times, including while sleeping * The shoulder replacement is very stable and you can use your hand while in the sling * You were shown a series of exercises in the hospital. Do these exercises daily including the exercises you were shown in physical therapy. Medications: * Narcotic You will likely be sent home from the hospital with a prescription for the narcotic pain medication that worked best throughout your stay. * Other medications may be prescribed for specific circumstances. If you have any questions, please call the office at . * Resume previous home medications unless otherwise instructed Dressing Care: Leave the Silverlon dressing in place for 7 days. After 7 days you may remove the dressing. If the incision is not draining then you may leave the omid open to air. If there is a little bit of drainage or if the omid are getting stuck on your clothing then cover the incision with a dry dressing. The omid will be removed at your 2 week follow-up appointment. Showering: You may shower with the Silverlon dressing in place. Do not let the shower spray hit the dressing directly. Pat the Silverlon dressing dry. If the dressing becomes wet underneath, then simply remove the dressing. Keep the incision dry until you are 7 days out from the day of surgery. After 7 days you may remove the Silverlon dressing and shower with the omid exposed. Let soapy water run over the omid and pat them dry. Do not scrub or soak the incision. Things To Watch For: * Drainage from the incision site that occurs more than one week after your surgery. * Increased redness at the incision site. * Fever above 102 degrees Fahrenheit. * Unusual chest pain or shortness of breath. * Call [facility] at with any of the above problems Follow-Up Visit: Follow-up with Dr. Oneil's PA (Lex Pennington) 2-3 weeks after your day of surgery . He will remove your omid and answer any questions. If you have any additional questions or concerns, Dr Oneil is usually in the office at the same time and will be available An appointment was probably scheduled when you signed-up for surgery in the office. If you have any questions call More detailed instructions as well as Frequently Asked Questions were provided in a folder by our office when you signed-up for surgery. Please review these instructions when you get home. If you have any further questions or concerns, please feel free to call the office at [phone] Pending Studies at Discharge: No Stand-Alone Forms: My [facility] Skilled Items Patient informed of condition?: Yes DNR: No Discharge Level of Care: Skilled Communicable Disease: No Discharge Prognosis: Improving Lines: None Urinary Catheter: No Medications and DC Order Prescriptions: New tramadol 50 mg tablet 50 mg PO Q6H PRN (Reason: pain) Qty: 30 RF: 0 Continued prednisone 10 mg tablet 10 mg PO QAM RF: 0 oxybutynin chloride 15 mg tablet extended release 24hr 15 mg PO QAM RF: 0 cholecalciferol (vitamin D3) 1,000 unit capsule 1,000 units PO QAM RF: 0 escitalopram oxalate [Lexapro] 20 mg tablet 20 mg PO QAM RF: 0 doxycycline monohydrate 100 mg Capsule 100 mg PO Q OTHER DAY RF: 0 Aubagio 14 mg tablet 14 mg PO QPM RF: 0 tizanidine [Zanaflex] 4 mg tablet 4 mg PO QID RF: 0 [id number]-[id number]-HP 3.5-10,000-1 mg/mL-unit/mL-% solution 4 drp otic (ear) TID RF: 0 sucralfate 100 mg/mL suspension 10 ml PO QID RF: 0 omeprazole 40 mg capsule,delayed release(DR/EC) 40 mg PO QAM RF: 0 Eliquis 5 mg tablet 5 mg PO BID Qty: 60 RF: 0 atorvastatin 20 mg Tablet 20 mg PO QAM Qty: 30 RF: 1 clopidogrel 75 mg Tablet 75 mg PO QAM Qty: 30 RF: 1 amlodipine [Norvasc] 5 mg Tablet 5 mg PO QAM Qty: 30 RF: 1 Discharge Orders: Discharge Order (Routine); Ordered 05/26/22 Ordered By: Lex Oneil Admission Data Admit Date/Time: 05/26/22 12:31 Attending Provider: Lex Oneil Admit Provider: Lex Oneil Primary Care Provider: Jil Schmid Other Providers: Evelia Michael
[2022-05-29] MEDS: CLOPIDOGREL BISULFATE 75 MG TAB PO SCH (09:07)
[2022-05-29] MEDS: amLODIPine BESYLATE 5 MG TAB PO SCH (09:07)
[2022-05-29] MEDS: SUCRALFATE 1 GM TAB PO SCH (09:07)
[2022-05-29] MEDS: APIXABAN 5 MG TABLET PO SCH (09:07)
[2022-05-29] MEDS: predniSONE 10 MG TABLET PO SCH (09:07)
[2022-05-29] MEDS: ESCITALOPRAM OXALATE 20 MG TAB PO SCH (09:08)
[2022-05-29] MEDS: ATORVASTATIN 20 MG TAB PO SCH (09:08)
[2022-05-29] MEDS: PANTOprazole 40 MG TAB PO SCH (09:08)
[2022-05-29] MEDS: MULTIVITAMIN TAB PO SCH (09:08)
[2022-05-29] MEDS: DOXYCYCLINE HYCLATE 100 MG CAP PO SCH (09:09)
[2022-05-29] MEDS: OXYBUTYNIN CHLORIDE XL 5 MG TABCR PO SCH (09:09)
[2022-05-29] MEDS: NEOMYCIN/POLYMYX/HYDROCORT OT SOLN 10 ML BTL OT SCH (09:10)
[2022-05-29] MEDS: DOCUSATE SODIUM 100 MG CAP PO SCH (09:12)
[2022-05-29] MEDS: TIZANIDINE HCL 4 MG PO SCH (09:23)
== END 2022-05-29 13:10 | DRG 483 ==
LOC: ASU 06:55 → PACUINP 06:55 → 3E 15:54

== ENCOUNTER 2022-08-10 11:23 | Inpatient (IN) ==
--- NOTE | 2022-07-28 16:28 | PAT Medication Instructions ---
Medication Instructions Date of Service July 28, 2022 Home Medications Medication Instructions Recorded amlodipine 5 mg tablet (Norvasc) 5 mg PO QAM #30 tabs 07/09/21 apixaban 5 mg tablet (Eliquis) 5 mg PO BID #60 tabs 07/09/21 atorvastatin 20 mg tablet 20 mg PO QAM #30 tabs 07/09/21 clopidogrel 75 mg tablet 75 mg PO QAM #30 tabs 07/09/21 cholecalciferol (vitamin D3) 25 mcg (1,000 unit) capsule 1,000 units PO QAM escitalopram oxalate 20 mg tablet (Lexapro) 20 mg PO QAM oxybutynin chloride 15 mg tablet,extended release 24 hr 15 mg PO QAM prednisone 10 mg tablet 10 mg PO QAM doxycycline monohydrate 100 mg capsule 100 mg PO Q OTHER DAY omeprazole 40 mg capsule,delayed release 40 mg PO QAM amlodipine 5 mg tablet (Norvasc) 5 mg PO QAM apixaban 5 mg tablet (Eliquis) 5 mg PO BID atorvastatin 20 mg tablet 20 mg PO QAM clopidogrel 75 mg tablet 75 mg PO QAM [id number]-axccibenr 3.5 mg/mL-10,000 unit/mL-1 % ear solution 4 drp otic (ear) TID sucralfate 100 mg/mL oral suspension 10 ml PO QID teriflunomide 14 mg tablet (Aubagio) 14 mg PO QPM tizanidine 4 mg tablet (Zanaflex) 4 mg PO QID multivitamin with minerals (Hair,Skin and Nails tablet) 1 tab PO QAM Continue as directed prednisone 10 mg tablet 10 mg PO QAM doxycycline monohydrate 100 mg capsule 100 mg PO Q OTHER DAY [id number]-dunorvqbe-cuzlgswhy 3.5 mg/mL-10,000 unit/mL-1 % ear solution 4 drp otic (ear) TID ASK your prescriber and surgeon clopidogrel 75 mg tablet 75 mg PO QAM apixaban 5 mg tablet (Eliquis) 5 mg PO BID teriflunomide 14 mg tablet (Aubagio) 14 mg PO QPM DO NOT take the morning of surgery cholecalciferol (vitamin D3) 25 mcg (1,000 unit) capsule 1,000 units PO QAM sucralfate 100 mg/mL oral suspension 10 ml PO QID tizanidine 4 mg tablet (Zanaflex) 4 mg PO QID multivitamin with minerals (Hair,Skin and Nails tablet) 1 tab PO QAM Take morning of surgery With a small sip of water, OTHERWISE NOTHING TO EAT OR DRINK AFTER MIDNIGHT: escitalopram oxalate 20 mg tablet (Lexapro) 20 mg PO QAM oxybutynin chloride 15 mg tablet,extended release 24 hr 15 mg PO QAM omeprazole 40 mg capsule,delayed release 40 mg PO QAM amlodipine 5 mg tablet (Norvasc) 5 mg PO QAM atorvastatin 20 mg tablet 20 mg PO QAM Take evening before surgery sucralfate 100 mg/mL oral suspension 10 ml PO QID tizanidine 4 mg tablet (Zanaflex) 4 mg PO QID Other Notes If you have any questions please call us at [phone] or [phone] or [phone] or [phone]
--- NOTE | 2022-07-29 10:49 | Anesthesiology Consultation ---
Date of Service July 29, 2022 Assessment & Plan (1) Encounter for pre-operative examination: - pending UA. - left arm restriction. - cardiology routine appt 04/30/22 [facility]: "...multiple sclerosis and previous DVT with pulmonary emboli...was on anticoagulation and then approximately two years ago she had GI bleeding from a gastric ulcer and the use of NSAIDs. Last year she presented with a non STEMI and by cardiac catheterization was found to have nonobstructive coronary artery disease...now anticoagulated with Plavix and Eliquis...has done well following that procedure...no cardiac issues and has no cardiac complaints today...scheduled later this month to undergo shoulder replacement surgery...here today for a cardiac risk assessment...Coronary artery disease with a non STEMI earlier this year in a cardiac catheterization indicating nonobstructive coronary artery disease with the most significant being a 50% ostial LAD June 2021 2. History of DVT and pulmonary emboli 3. Multiple sclerosis...Utilizing the [employer] preoperative risk assessment tool, the patient's risk for this surgery is 1.26 %. Her history of multiple sclerosis and other medical problems of course increase this risk however, she is currently optimally medically managed and should proceed to surgery. She should hold her Plavix starting 1 week before and her Eliquis 48 hours prior to the surgery. These medications can be restarted when appropriate following the surgery. I plan follow-up in 3 months to monitor progress..." - COVID screening: Per assessment on 07/29/2022: Travel screen negative, no known COVID-19 positive contacts or current COVID-19 related symptoms in past 2 weeks. Pt vaccinated. To surgeon's discretion if preop COVID testing. Chart Review Chart Review: Pending: Refer to Additional Notes / Consult section and Patient seen in Pre Admission Testing Teaching & Discussion Pre-Anesthesia Teaching/Discussion Notes: Instructed NPO after midnight before surgery, except medications with 15 cc of water. Medication instructions provided according to the PAT guidelines. History Surgery Operation Date: 08/10/22 13:00 Proposed Procedures p Replacement of Intrathecal Baclofen Pump with Possible Revision or Replacement of Intrathecal Catheter - Hannah Fihsman DO Height/Weight Height: 5 ft 4 in Weight: 65.1 kg Allergies Allergy/AdvReac Type Severity Reaction Status Date / Time No Known Allergies Allergy Verified 07/28/22 13:26 Medications Home Medications Medication Instructions Recorded Confirmed Last Taken cholecalciferol (vitamin D3) 25 1,000 units PO QAM 09/18/18 07/28/22 05/23/22 08 :00 mcg (1,000 unit) capsule escitalopram oxalate 20 mg tablet 20 mg PO QAM 09/18/18 07/28/22 05/25/22 06:30 (Lexapro) oxybutynin chloride 15 mg 15 mg PO QAM 09/18/18 07/28/22 05/24/22 08:00 tablet,extended release 24 hr prednisone 10 mg tablet 10 mg PO QAM 09/18/18 07/28/22 05/25/22 06:20 doxycycline monohydrate 100 mg 100 mg PO Q OTHER DAY 04/29/20 07/28/22 05/23/22 21:00 capsule omeprazole 40 mg capsule,delayed 40 mg PO QAM 07/06/21 07/28/22 05/25/22 06:30 release amlodipine 5 mg tablet (Norvasc) 5 mg PO QAM #30 tabs 07/09/21 07/28/22 05/25/22 06:30 apixaban 5 mg tablet (Eliquis) 5 mg PO BID #60 tabs 07/09/21 07/28/22 05/20/22 08:00 atorvastatin 20 mg tablet 20 mg PO QAM #30 tabs 07/09/21 07/28/22 05/25/22 06:30 clopidogrel 75 mg tablet 75 mg PO QAM #30 tabs 07/09/21 07/28/22 05/20/22 08:00 nlbscywq-pcezylqhm-mrqgkamcy 3.5 4 drp otic (ear) TID 05/13/22 07/28/22 05/24/22 08:00 mg/mL-10,000 unit/mL-1 % ear solution sucralfate 100 mg/mL oral 10 ml PO QID 05/13/22 07/28/22 05/24/22 18:00 suspension teriflunomide 14 mg tablet 14 mg PO QPM 05/13/22 07/28/22 05/24/22 21:00 (Aubagio) tizanidine 4 mg tablet (Zanaflex) 4 mg PO QID 06/07/28/22 05/24/22 21:00 multivitamin with minerals 1 tab PO QAM 07/28/22 07/28/22 Unknown (Hair,Skin and Nails tablet) Past Medical History Medical History (Updated 07/29/22 @ 11:33 by Michaela Rondon PA-C) Anemia CAD (coronary artery disease) Non-obstructive per 06/2021 cardiac cath GERD (gastroesophageal reflux disease) controlled, stable per pt History of blood transfusion History of DVT (deep vein thrombosis) ~6 yrs ago History of GI bleed Upper GIB (2019) felt 2/2 NSAID use History of non-ST elevation myocardial infarction (NSTEMI) 06/2021 (had heart cath, no stents) History of pulmonary embolism ~ 6 yrs ago, IVC filter still in place History of supraventricular tachycardia Hx of gastric ulcer 02/2021 HX: breast cancer Left breast cancer with surgery and chemo/radiation-left arm restriction Hypertension controlled, stable per pt Limb alert care status left arm Multiple sclerosis Follows with Dr. Walker/[facility] Stable Neurogenic bladder SELF CATH 2-3 X'S PER DAY *RECENT HOSPITALIZATION FOR UTI Osteoarthritis of right shoulder Osteoporosis Raynaud disease Patient denies h/o stroke, seizures, heart failure, or DM. Exercise / Class Metabolic Activity IV < 2 Limit ADL/Bedbound (wheelchair bound) Past Family History Family History Mother Heart disorder Other No family history of adverse response to anesthesia Past Surgical History Surgical History (Updated 07/29/22 @ 11:55 by Michaela Rondon PA-C) H/O left mastectomy with lymph node removal>LEFT ARM RESTRICTION History of appendectomy History of cardiac cath Cardiac cath (07/06/21; [facility]) > Right dominant coronary system. No evidence of aortic stenosis. Normal left ventricular filling pressures. Nonobstructive disease involving the ostial LAD. No evidence of acute coronary syndrome. Approximately 50% ostial stenosis of the LAD. There was some very mild disease at the ostium of the left circumflex. Recommendations: Medical management. History of colonoscopy History of esophagogastroduodenoscopy (EGD) History of open reduction and internal fixation (ORIF) procedure "left hip" History of tooth extraction Presence of intrathecal pump baclofen pump in place "HAS NO REMOTE OR INSTRUCTIONS" S/P IVC filter S/P partial hysterectomy S/p reverse total shoulder arthroplasty right: 05/25/22 LMA#4. No postop issues per anesthesia progress note. Past Anesthesia History No Hx of Anesthesia Complications and No Family Hx of Anesthesia Complications History of PONV No Hx of PONV and No Hx of Motion Sickness Social History Smoking Status: Former smoker tobacco type: cigarettes Smoking End Date: Hx Alcohol Use: No Hx Substance Use: No substance use type: does not use Review of Systems Snoring, denies witnessed apneas. Patient denies chest pain, shortness of breath, dyspnea on exertion, fever, chills, cough, wheezing, or palpitations. Physical Exam Vital Signs Vitals BP 116/79 P 97 TEMP 99.1 SP02 95% on RA RESP 17 Physical Full cervical extension range of motion without pain TMD 3.5 finger breadths Mallampati Score 3 Dentition: intact, several implants throughout, one recently broken crown-pt plans to delay repair until after procedure; denies loose teeth or bridges Lungs: normal respiratory effort. Clear throughout to auscultation, no adventitious breath sounds Cardiac: regular rate and rhythm, 2/6 diastolic murmur Carotid arteries: negative bruit bilat Lab Results Anesthesia Preop Results Results Anesthesia Widget: WBC 6.73 K/ul (4.8-10.8) 07/29/22 Hgb 10.6 g/dl (12.0-16.0) L 07/29/22 Hct 34.2 % (34.1-44.9) 07/29/22 Plt 354 K/uL (130-400) 07/29/22 Na 140 mmol/L (136-145) 06/28/22 K 4.1 mmol/L (3.5-5.1) 06/28/22 Cl 107 mmol/L (98-107) 06/28/22 CO2 29 mmol/L (21-32) 06/28/22 BUN 22 mg/dl (6-23) 06/28/22 Creat 0.73 mg/dl (0.6-1.2) 06/28/22 Glucose Level 84 mg/dl (70-99(Fasting)) 06/28/22 Urine Color Yellow 06/10/22 Urine Appearance Cloudy (Clear) A 06/10/22 Urine pH 6.5 (4.5-7.5) 06/10/22 Urine Specific [place] 1.022 (1.000-1.030) 06/10/22 Urine Protein Trace (Negative) H 06/10/22 Urine Glucose (UA) Negative (Negative) 06/10/22 Urine Ketones Negative (Negative) 06/10/22 Urine Blood Trace (Negative) H 06/10/22 Urine Nitrite Positive (Negative) A 06/10/22 Urine Bilirubin Negative (Negative) 06/10/22 Urine Urobilinogen Negative (Negative) 06/10/22 Urine Leukocyte Esterase 2+ (Negative) H 06/10/22 Urine WBC (Auto) >30 /hpf (0-5) H 06/10/22 Urine RBC (Auto) 10-30 /hpf (0-4) H 06/10/22 Urine Hyaline Casts (Auto) 1-5 /lpf (0-5) 06/10/22 Urine Epithelial Cells (Auto) 10-20 /lpf (0-5) H 06/10/22 Urine Bacteria (Auto) 3+ (Negative) H 06/10/22 Testing Electrocardiogram Date: 05/13/22 Poor data quality Sinus tachycardia, rate 101 bpm Possible left atrial enlargement Chest X-Ray Date: 09/15/21 Bibasilar atelectasis. Lungs are otherwise clear with normal vascularity Echocardiogram Date: 07/07/21 EF 60-65% Mild cLVH No segmental LV wall motion abnormalities Grade I diastolic dysfunction Mild aortic valve sclerosis without significant aortic valvular stenosis Mild atherosclerotic plaque(s) in the ascending aorta LA mildly dilated Stress Test Date: 11/04/21 Dobutamine MPHR 103% Negative for inducible ischemia EF 55 to 60% No LV regional wall motion abnormality Grade I diastolic dysfunction Mild aortic regurgitation, moderate valve sclerosis without stenosis Mild tricuspid regurgitation Cardiac Catheterization Date: 07/08/21 Left main: Left main coronary artery was normal in size and caliber and bifurcated normally into the left anterior descending left circumflex arteries. No disease in this vessel. Left anterior descending: Left anterior descending artery was a large transapical vessel which produced to diagonal branches. It was approximately 50% ostial stenosis of the LAD. There was no additional disease in this vessel. Left circumflex: Left circumflex artery was a nondominant vessel. It produced 2 OM branches. There was some very mild disease at the ostium of the left circumflex, but no other obstructive lesions. Right coronary artery: The right coronary artery was a relatively small but dominant vessel without evidence of disease. Other Testing Head CT 05/13/22 There is no hemorrhage, mass effect, or evidence of acute territorial ischemia by CT criteria. Abdomen pelvis CT 05/13/22 Lung base: The lung bases are clear. Kidneys: There is homogeneous attenuation of the renal parenchyma bilaterally. There is no evidence for renal calculus or hydronephrosis. There is no evidence for enhancing mass. Sharply defined renal cysts are again seen bilaterally. Bowel: Small to moderate size hiatal hernia is present The bowel loops are normally placed within the abdomen and pelvis without evidence for dilatation or obstruction. There is no evidence for mass lesion. There is mild diverticulosis without evidence for diverticulitis. There are no inflammatory changes present. There is no evidence for free air. Bladder: Zuñiga catheter is present within the bladder. Vasculature: There is no evidence for aneurysmal dilatation of the abdominal aorta. IVC filter is in place. Osseous structures: There is no acute osseous pathology. Extensive degenerative changes are again seen within the spine with evidence for lumbar canal stenosis. Old ischiopubic rami fractures are seen. The patient is again status post left hip replacement. IMPRESSION: 1. No acute intra-abdominal or pelvic abnormality. 2. There is again a small to moderate size hiatal hernia. 3. There is again diverticulosis without evidence for diverticulitis. 4. Marked degenerative changes are again seen within the lumbar spine with evidence for lumbar canal stenosis. 5. Additional nonacute findings are delineated above. Chest MRI 01/04/22 1. Moderate bilateral glenohumeral joint effusions with distention of the bilateral subcoracoid bursa, right greater than left. The distended right subcoracoid bursa extends into the supraclavicular and subpectoral soft tissues and likely corresponds the patient's palpable abnormality. This is likely due to the long-standing advanced degenerative change within the bilateral glenohumeral joints. 2. There is enhancement of the distended synovium within the bilateral glenohumeral joints, right greater than left. This is nonspecific but could represent a reactive synovitis from the long-standing degenerative change. A superimposed infection is considered less likely but would be impossible to exclude by imaging alone. 3. No soft tissue masses identified within the chest. 3. 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
--- NOTE | 2022-08-05 12:46 | History & Physical Report ---
Date of Service August 05, 2022 Assessment & Plan (1) Multiple sclerosis: (2) Presence of intrathecal pump: Plan As the intrathecal pump containing Baclofen is adequately controlling the patient's lower extremity spasticity and is reaching the battery's end of life it is recommended that the intrathecal pump be replaced. Surgical procedure has been explained to the patient. Risks and benefits were reviewed and she would like to proceed with the replacement. Procedure is scheduled for 08/10/22. History of Present Illness Primary Care Provider: Jil Schmid DO Ms. Shelby is a 71 year old white female that is well known to the [facility] with a history of intractable spasticity of the bilateral lower extremities secondary to multiple sclerosis which has required implantation of an intrathecal pump and catheter delivery system. Intrathecal pump containing Baclofen is controlling the lower extremity spasticity well. She is able to ambulate with a 4-point walker. She has not required the use of oral Baclofen. She denies any fevers, chills, nausea, vomiting, weakness, or recent falls. Allergies Allergy/AdvReac Type Severity Reaction Status Date / Time No Known Allergies Allergy Verified 07/28/22 13:26 Home Medications Medication Instructions Recorded Confirmed Type cholecalciferol (vitamin D3) 25 1,000 units PO QAM 09/18/18 07/28/22 History mcg (1,000 unit) capsule escitalopram oxalate 20 mg tablet 20 mg PO QAM 09/18/18 07/28/22 History (Lexapro) oxybutynin chloride 15 mg 15 mg PO QAM 09/18/18 07/28/22 History tablet,extended release 24 hr prednisone 10 mg tablet 10 mg PO QAM 09/18/18 07/28/22 History doxycycline monohydrate 100 mg 100 mg PO Q OTHER DAY 04/29/20 07/28/22 History capsule omeprazole 40 mg capsule,delayed 40 mg PO QAM 07/06/21 07/28/22 History release amlodipine 5 mg tablet (Norvasc) 5 mg PO QAM #30 tabs 07/09/21 07/28/22 Rx apixaban 5 mg tablet (Eliquis) 5 mg PO BID #60 tabs 07/09/21 07/28/22 Rx atorvastatin 20 mg tablet 20 mg PO QAM #30 tabs 07/09/21 07/28/22 Rx clopidogrel 75 mg tablet 75 mg PO QAM #30 tabs 07/09/21 07/28/22 Rx htmrilbw-zmzselpow-qxedegrpq 3.5 4 drp otic (ear) TID 05/13/22 07/28/22 History mg/mL-10,000 unit/mL-1 % ear solution sucralfate 100 mg/mL oral 10 ml PO QID 05/13/22 07/28/22 History suspension teriflunomide 14 mg tablet 14 mg PO QPM 05/13/22 07/28/22 History (Aubagio) tizanidine 4 mg tablet (Zanaflex) 4 mg PO QID 05/13/22 07/28/22 History multivitamin with minerals 1 tab PO QAM 07/28/22 07/28/22 History (Hair,Skin and Nails tablet) Past Med/Surg History Medical History Anemia CAD (coronary artery disease) Non-obstructive per 06/2021 cardiac cath GERD (gastroesophageal reflux disease) controlled, stable per pt History of blood transfusion History of DVT (deep vein thrombosis) ~6 yrs ago History of GI bleed Upper GIB (2019) felt 2/2 NSAID use History of non-ST elevation myocardial infarction (NSTEMI) 06/2021 (had heart cath, no stents) History of pulmonary embolism ~ 6 yrs ago, IVC filter still in place History of supraventricular tachycardia Hx of gastric ulcer 02/2021 HX: breast cancer Left breast cancer with surgery and chemo/radiation-left arm restriction Hypertension controlled, stable per pt Limb alert care status left arm Multiple sclerosis Follows with Dr. Walker/[facility] Stable Neurogenic bladder SELF CATH 2-3 X'S PER DAY *RECENT HOSPITALIZATION FOR UTI Osteoarthritis of right shoulder Osteoporosis Raynaud disease Surgical History H/O left mastectomy with lymph node removal>LEFT ARM RESTRICTION History of appendectomy History of cardiac cath Cardiac cath (07/06/21; [facility]) > Right dominant coronary system. No evidence of aortic stenosis. Normal left ventricular filling pressures. Nonobstructive disease involving the ostial LAD. No evidence of acute coronary syndrome. Approximately 50% ostial stenosis of the LAD. There was some very mild disease at the ostium of the left circumflex. Recommendations: Medical management. History of colonoscopy History of esophagogastroduodenoscopy (EGD) History of open reduction and internal fixation (ORIF) procedure "left hip" History of tooth extraction Presence of intrathecal pump baclofen pump in place "HAS NO REMOTE OR INSTRUCTIONS" S/P IVC filter S/P partial hysterectomy S/p reverse total shoulder arthroplasty right: 05/25/22 LMA#4. No postop issues per anesthesia progress note. Family History Mother Heart disorder Other No family history of adverse response to anesthesia Social History Smoking Status: Former smoker packs per day: 1; Years Smoked: 10; Second Hand Exposure: No; Hx Alcohol Use: No Hx Substance Use: No Preferred Language: Latvian Communication Ability: Effective Visual Impairment: No Limitations Hearing Ability: Normal Education Supervisor Required: No Beliefs That Will Affect Care: None marital status: / Current Living Situation: Alone current occupational status: retired How many Children do You have: 3 Feels Safe at Home: Yes Childhood Exposure to Second-Hand Smoke: Yes Assistive Devices: Wheelchair Review of Systems Review of Systems: All systems reviewed & are unremarkable except as noted in HPI & below Physical Exam Physical Exam: GENERAL: Mrs. Shelby is a 71 year old white female that appears her stated age. Well nourished; well appearing; in no acute distress. Cognition intact and speech is appropriate. HEAD: Normocephalic; atraumatic. EYES: Pupils are round, equal, and reactive to light; EOM intact. ENT: Wearing mask. NECK: Full ROM; trachea is midline. CARDIO: Regular rate and rhythm. No murmurs, rubs, or gallops. PULM: Clear to auscultation. No wheezes, rales, or rhonchi. CHEST: Regular chest respiration and excursion. ABDOMEN: Non-distended. Intrathecal pump is located in the left lower abdomen. No edema, erythema, or skin breakdown. EXTREMITIES: Distal sensation and pulses intact bilaterally. Moderate spasticity noted in the bilateral lower extremities. No spasms noted. 4/5 strength in bilateral lower extremities. BACK: Full ROM. No midline or facet tenderness. NEURO: CN II-XII grossly intact with no focal deficits noted. AAO x 3. Able to ambulate with the use of a [id number]. SKIN: No rashes.
[~2022-08-10 11:23] MED LIST changes: -BUPIVACAINE 0.5 % 5 MG/1 ML PF 10ML VIAL ONE; -FAMOTIDINE 20 MG TAB PO SCH; -GABAPENTIN 300 MG CAP PO SCH; +GENTAMICIN CONSULT ACTIVE PRN; +GENTAMICIN SULFATE 300 MG in DEXTROSE 5% 100 ML IV SCH; -Ketorolac (*for OR use only*) 30 MG, dexAMETHasone 4 MG, KETAMINE HCL (**OR use only) 1... INFIL SCH; -LR 60ML/HR IV SCH; +MIDAZOLAM HCL 1 MG/ML 2ML VIAL ONE; -TRANEXAMIC ACID 1,000 MG **IV Intra-op IV SCH; -TRANEXAMIC ACID 1,000 MG **IV Pre-op IV SCH; +[UNRECOGNIZED DRUG - OTHER] IT SCH; -ceFAZolin 1000MG 1,000 MG/7.5 ML SYR IV SCH; +ceFAZolin 2000MG 2,000 MG/15 ML SYR IV SCH; -dexAMETHasone 4 MG TAB PO SCH; +fentaNYL citrate 100 MCG/2 ML VIAL ONE
[2022-08-10] MEDS ORDERED: PROPOFOL IV EMULSION 10 MG/ML 20 ML VIAL IV ONE (11:49)
[2022-08-10] MEDS ORDERED: LIDOCAINE 2% 2 ML VIAL/AMP(20MG/ML) INFIL ONE (11:49)
[2022-08-10] MEDS ORDERED: ePHEDrine sulfate 50 MG/ML SYR ONE (11:49)
[2022-08-10] MEDS ORDERED: LIDOCAINE 2%/EPINEPHRINE 1:100,000 20ML ONE (12:15)
[2022-08-10] MEDS ORDERED: BACLOFEN PAIN PUMP IT SCH (12:30)
--- NOTE | 2022-08-10 12:30 | History & Physical Bridge Note ---
Date of Service August 10, 2022 History & Physical Bridge Note I have examined the patient, reviewed the History & Physical and in the interval since the performance of the History & Physical I have noted the following changes of clinical significance: no changes noted Potential risks including infection, bleeding, nerve injury, reaction to any one of the medications used for the procedure, persistent pain at the injection site and persistent symptoms discussed with the patient. She acknowledges that in fection would require loss of intrathecal pump and ramifications of that in regards to spasm and pain. Nature of the procedure also discussed with the patient. Alternatives to the specific procedure was also discussed with the patient. Patient's questions were answered. Patient gives informed consent to proceed.
[2022-08-10] MEDS ORDERED: DEXAMETHASONE SOD INJ 4 MG/ML VIAL ONE ×2 (13:18→13:31)
[2022-08-10] MEDS ORDERED: ONDANSETRON INJ 2 MG/ML 2 ML VIAL ONE (13:18)
[2022-08-10] MEDS ORDERED: BACLOFEN 50 MCG/ML ITR ONE (13:51)
--- NOTE | 2022-08-10 14:50 | Operative Report ---
Post Operative Report Pre & Post Diagnosis Operation Date: 08/10/22 13:00 Pre-Op Diagnosis: End of Life Baclofen Intrachecal Pain Pump Post-Op Diagnosis: End of Life Baclofen Intrachecal Pain Pump I identified the patient and participated in the time-out.: Yes Procedure Operation Date: 08/10/22 13:00 Actual Procedures p Replacement of Intrathecal Baclofen Pump with Possible Revision or Replacement of Intrathecal Catheter(Left) - Hannah Fishman DO Surgeon Hannah Fishman, Plastic Block Boiler Reliner none Estimated Blood Loss 5 Findings Consistent with Post-Op Diagnosis Fluids per anes record Specimens none Drains none Anesthesia Type General Complications none Disposition Accompanied Patient To Recovery: No Indications end of life intrathecal pump Description of Procedure PROCEDURE PERFORMED: Intrathecal pump replacement, catheter access port study, pump interrogation, reprogramming, and analysis. PREOPERATIVE DIAGNOSIS: end of life intrathecal pump POSTOPERATIVE DIAGNOSIS: Same. COMPLICATIONS: None. SURGEON: Dr. Hannah Fishman. ANESTHESIA: General. MATERIAL FORWARDED TO THE LAB: None. INDICATIONS: The patient had an end of life pump thus requiring replacement. The patient was explained the risks, benefits, alternatives of the procedure and agreed to proceed as above. Informed consent was obtained and witnessed. A time out was performed after the patient was brought into the Operating Room. Antibiotics were given. The patient was then induced with general anesthesia without complications and was placed in the supine position. The skin was prepped with duraprep and betadine and draped in sterile fashion. The existing pump was identified and using a scalpel, electrocautery, and blunt dissection, the existing pump was exposed. The four retaining sutures were removed and the old pump was explanted. The catheter was disconnected from the old pump and free flowing CSF was noted. The new pump was opened and prepared according to [employer] standards. Fresh pump medication was placed into the new pump. The pump catheter was secured to the new pump according to [employer] standards. The catheter access port was accessed and CSF was not able to be aspirated. The catheter was dissected from the pocket with electrocautery and on second aspiration 0.15ml of fluid was able to be aspirated. The total catheter volume was 0.19ml. Next, the pocket was irrigated with 3 bulb syringes full of sterile normal saline with aqueous iodophor. Hemostasis was achieved. The new pump was placed into the pocket in the 3 O'clock position. The intrathecal pump was anchored in the pocket with 4 0 Prolene sutures. No complications were noted after the intrathecal pump was placed inside the pocket. The skin and subcutaneous tissues was closed with 0-antibiotic coated strata fix then 3-O antibiotic coated stratafix then Prineo dermabond dressing without complications. The skin was cleansed and dried and antibiotic infused silver aquacel dressing was placed per termite control technician recommendations. No complications were noted throughout the procedure. The patient tolerated the procedure and general anesthesia well and was extubated at the end of the procedure. The patient was then transferred back to the [facility] and was taken to the recovery room in stable condition. The patient will follow up with our clinic within 7 and 14 days for a wound check. No changes were made to the pump dosing regimen, however a catheter bolus was performed to ensure withdrawal did not occur. Pump size inserted: 20ml Medication placed in pump: Baclofen 750 mcg/mL I attest to the content of the Intraoperative Record and any orders documented therein. Any exceptions are noted below.
[2022-08-10] MEDS ORDERED: ACETAMINOPHEN 500 MG TAB PO PRN (14:51)
[2022-08-10] MEDS ORDERED: NALOXONE HCL 0.4 MG/1 ML VIAL/CARP IV PRN (14:51)
[2022-08-10] MEDS ORDERED: diphenhydrAMINE Capsule 25 MG CAP PO PRN (14:51)
[2022-08-10] MEDS ORDERED: HYDROCODONE/ACETAMOPHEN 5/325MG TAB PO PRN (14:51)
[2022-08-10] MEDS ORDERED: ONDANSETRON INJ 2 MG/ML 2 ML VIAL IV PRN (14:51)
--- NOTE | 2022-08-10 14:58 | Anesthesiology Progress Note ---
Date of Service August 10, 2022 Anesthesia Post Procedure Vital Signs Vital Signs: Temp Pulse Pulse Resp BP Pulse Ox O2 Del Method 08/10/22 14:55 98.1 F 96 H 16 140/94 94 Room Air 08/10/22 14:45 97 H 13 150/89 H 94 Room Air 08/10/22 14:35 94 H 15 138/96 100 Oxymask 08/10/22 14:25 97.9 F 92 H 16 137/87 100 Oxymask 08/10/22 12:21 97.9 F 82 18 141/87 H 100 Room Air O2 Flow Rate 08/10/22 14:55 08/10/22 14:45 08/10/22 14:35 5 08/10/22 14:25 5 08/10/22 12:21 Pain Intensity Right Shoulder: Pain Intensity: 8 Transfer of Care Handoff Completed per policy Notes Mental Status: alert / awake / arousable and participated in evaluation Patient Amnestic to Procedure: Yes Nausea / Vomiting: adequately controlled Pain: adequately controlled Airway Patency, RR, SpO2: stable & adequate BP & HR: stable & adequate Hydration State: stable & adequate Anesthetic Complications: no major complications apparent and Pt Satisfied with anesthetic care
--- NOTE | 2022-08-10 15:04 | Communication Note ---
Date of Service: August 10, 2022 Spoke with patient's family postop to inform them of patient's status. They reported that they feel she is unsafe at home and they are unable to care for her tonight postop. They wish for her to stay overnight at the hospital and have a social service agency director eval for placement. Orders for PT/social service agency director/hospitalists placed. Will inform patient.
--- NOTE | 2022-08-10 17:36 | Consultation ---
Date of Consultation August 10, 2022 Assessment & Plan (1) Presence of intrathecal pump: (2) Multiple sclerosis: (3) Fall: (4) Acute shoulder pain: (5) CAD (coronary artery disease): (6) History of pulmonary embolism: Plan This is a 71-year-old female who has a significant past medical history of MS with spasticity, chronic intrathecal baclofen pump for spasticity, neurogenic bladder doing a chest catheterization, iron deficiency anemia, history of DVT/PE on Eliquis, depression, CAD, history of GI bleed, history of SVT who presented for elective exchange of her intrathecal baclofen pain pump by Dr. Fishman. Presence of intrathecal pump Status post replacement of intrathecal baclofen pump with replacement of intrathecal catheter, POD #0, Dr. Fishman Multiple Sclerosis pt admitted to [facility] tele plan was for d/c but given ambulatory dysfxn, R shoulder pain family unable to take patient home PT/OT continue aubagio, prednisone CM consulted - dispo to be determined pending PT/OT evals Acute R shoulder pain Fall S/P R reverse total shoulder by Dr. Oneil 05/25/22 pt fell 5 days ago on R shoulder, now with significant lack of ROM and pain to RUE pt mostly wheelchair bound but does transfer to chair by self, previously was walking with 4 point walker given R shoulder pain now significantly limited will consult [facility] orthopedics in a.m. Xray show intact replacement but concern for rotator cuff tear vs. frozen sh oulder Neurogenic bladder hx of UTI continue oxybutnin will use purwic cath, at home pt self caths at HS Hx of PE/DVT continue eliquis CAD continue statin, plavix HTN continue amlodipine Generalized Weakness PT/OT Iron def anemia pt is receiving iron infusions as OP, last 08/09 Hemoglobin and hematocrit 10.5 and 33.0 as outpatient Iron screen revealed transferrin saturation 9%, ferritin 82, iron low at 24 follow cbc Abnormal Urinalysis ESBL OP revealed ESBL in [id number] on 08/04/22 repeat cathed UA may be contributing to weakness given hx of UTI will empirically start IV ertapenem contact precautions ordered DVT ppx: SQ Eliquis Dispo: tele, need PT/oT consults, ortho eval, possible placement for rehab given shoulder FULL CODE PCP: Zoey Schmid Pt was seen and examined in collaboration with Dr. Wall, please see addendum Thank you for this consultation. We will follow the patient with you during their hospital stay. You can reach a member of the [facility] Hospitalist Team 20/06 via hospitalist role on tiger text. Supervising Physician Co-Signing Physician Notes I have seen and examined the patient and have discussed the case with the provider above. I agree with the assessment and plan as stated with the following exceptions. 71 yo F presented for battery change on her intrathecal baclofen pump which she has been on for over ten years. She has difficulty walking and still drives despite progressed multiple sclerosis. She has had multiple falls at home and was recently at [facility] several weeks ago. As above she is s/p right shoulder surgery. Recent outpatient UA revealed Klebsiella ESBL which is new. Previous cultures show Pseudomonas or pansensitive Klebsiella. With recent falls will treat her with ertapenem given replacement device placement today, and consult infectious disease to get their thoughts on if this may be colonization vs acute infection. Also fell onto shoulder that was recently operated on so ortho consulted. Both daughters were concerned post-operatively that mom was unsafe at home and refused to take her home pending evaluations for placement/rehab. Instead of consult, medicine service will take over as primary and this was discussed with Dr. Fishman. Physical exam reveals elderly female in NAD who is alert and answering questions appropriately. She is hemodynamically stable and afebrile. CV: S1/2 heard without m/g/r. Lungs: clear to auscultation throughout. ABD: abdominal binder in place. soft, NTND. Back wound was not evaluated 2/2 binder but Aquacel is in place and should not be removed for 1 week. Legs are very rigid with minimal movement either passively or actively. Very minimal plantar or dorsiflexion of both feet. Right shoulder is very rigid and limited ROM in postoperative state. She is getting Baclofen via intrathecal pump at 85mcg/24 hours. She is allowed an additional 10mg QID PRN per pain as needed. She is ok to restart her Plavix and Eliquis tomorrow. There are no activity restrictions. With ongoing concerns for mobility limitations agree with PT and OT evaluations for possible placement. Solange Wall DO [facility] Hospitalist History of Present Illness Requesting Physician: Dr. Fishman Reason for Consultation: Postop management, placement Attending Physician: Hannah Fishman History of Present Illness This is a 71-year-old female who has a significant past medical history of MS with spasticity, chronic intrathecal baclofen pump for spasticity, neurogenic bladder doing a chest catheterization, iron deficiency anemia, history of DVT/PE on Eliquis, depression, CAD, history of GI bleed, history of SVT who presented for elective exchange of her intrathecal baclofen pain pump by Dr. Fishman. Patient tolerated the procedure well with minimal blood loss. Daughter spoke with Dr. Fishman postoperatively and did not feel comfortable taking patient home due to acute decrease in mobility. Both daughters were at bedside. They state patient fell last week on 08/05. She underwent a reverse right total shoulder replacement by Dr. Oneil on May 25. She tolerated the procedure well and went to [facility] rehab. Unfortunately secondary to the fall last week she fell on her right shoulder. Since the fall she has had limited mobility which has been worsening of her right shoulder. She typically is wheelchair-bound at baseline but is able to do self transfers to wheelchair. When intrathecal pump is functioning she previously had been able to walk with a four-point walker as well. Her right shoulder has been significantly limiting her. She did present to ER on 08/08 and x-ray was performed. X-ray revealed unremarkable appearance of her right shoulder total joint arthroplasty. She is scheduled follow-up with orthopedics as an outpatient in the next 1 to 2 weeks. Daughters are concerned about ability to take patient home given lack of mobility. Otherwise patient has been doing well. She denies any fever, chills, sweats, lightheadedness, dizziness, chest pain, shortness with, cough, URI symptoms, nausea, vomiting, abdominal pain. Given her MS she does have neurogenic bladder and again self catheterizes overnight. She does get frequent UTIs which typically presents as abdominal pain and urgency. She also states she is following ENT due to a blood bulla on her tympanic membrane. Currently she denies any pain. She is managed on Aubagio and prednisone for her MS. She follows a Dr. Bang at [facility] as well as Dr. Walker with [facility] neurology. She also history of DVT and PE on Eliquis. Lastly she has history of CAD managed medically on atorvastatin and Plavix. Allergies Allergy/AdvReac Type Severity Reaction Status Date / Time No Known Allergies Allergy Verified 08/10/22 12:14 Home Medications Medication Instructions Recorded Confirmed Type cholecalciferol (vitamin D3) 25 1,000 units PO QAM 09/18/18 08/10/22 History mcg (1,000 unit) capsule escitalopram oxalate 20 mg tablet 20 mg PO QAM 09/18/18 08/10/22 History (Lexapro) oxybutynin chloride 15 mg 15 mg PO QAM 09/18/18 08/10/22 History tablet,extended release 24 hr prednisone 10 mg tablet 10 mg PO QAM 09/18/18 08/10/22 History omeprazole 40 mg capsule,delayed 40 mg PO QAM 07/06/21 08/10/22 History release amlodipine 5 mg tablet (Norvasc) 5 mg PO QAM #30 tabs 07/09/21 08/10/22 Rx apixaban 5 mg tablet (Eliquis) 5 mg PO BID #60 tabs 07/09/21 08/10/22 Rx clopidogrel 75 mg tablet 75 mg PO QAM #30 tabs 07/09/21 08/10/22 Rx sucralfate 100 mg/mL oral 10 ml PO QID 05/13/22 08/10/22 History suspension (Carafate) teriflunomide 14 mg tablet 14 mg PO QPM 05/13/22 08/10/22 History (Aubagio) tizanidine 4 mg tablet (Zanaflex) 4 mg PO QID 05/13/22 08/10/22 History multivitamin with minerals 1 tab PO QAM 07/28/22 08/10/22 History (Hair,Skin and Nails tablet) atorvastatin 20 mg tablet (Lipitor) 20 mg PO QAM 08/10/22 08/10/22 History doxycycline hyclate 50 mg capsule 50 mg PO Q OTHER DAY Rosacea 08/10/22 08/10/22 History Patient History Medical History Anemia CAD (coronary artery disease) Non-obstructive per 06/2021 cardiac cath GERD (gastroesophageal reflux disease) controlled, stable per pt History of blood transfusion History of DVT (deep vein thrombosis) ~6 yrs ago History of GI bleed Upper GIB (2019) felt 2/2 NSAID use History of non-ST elevation myocardial infarction (NSTEMI) 06/2021 (had heart cath, no stents) History of pulmonary embolism ~ 6 yrs ago, IVC filter still in place History of supraventricular tachycardia Hx of gastric ulcer 02/2021 HX: breast cancer Left breast cancer with surgery and chemo/radiation-left arm restriction Hypertension controlled, stable per pt Limb alert care status left arm Multiple sclerosis Follows with Dr. Walker/[facility] Stable Neurogenic bladder SELF CATH 2-3 X'S PER DAY *RECENT HOSPITALIZATION FOR UTI Osteoarthritis of right shoulder Osteoporosis Raynaud disease Surgical History H/O left mastectomy with lymph node removal>LEFT ARM RESTRICTION History of appendectomy History of cardiac cath Cardiac cath (07/06/21; [facility]) > Right dominant coronary system. No evidence of aortic stenosis. Normal left ventricular filling pressures. Nonobstructive disease involving the ostial LAD. No evidence of acute coronary syndrome. Approximately 50% ostial stenosis of the LAD. There was some very mild disease at the ostium of the left circumflex. Recommendations: Medical management. History of colonoscopy History of esophagogastroduodenoscopy (EGD) History of open reduction and internal fixation (ORIF) procedure "left hip" History of tooth extraction Presence of intrathecal pump baclofen pump in place "HAS NO REMOTE OR INSTRUCTIONS" S/P IVC filter S/P partial hysterectomy S/p reverse total shoulder arthroplasty right: 05/25/22 LMA#4. No postop issues per anesthesia progress note. 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 Review of Systems Review of Systems: All systems reviewed & are unremarkable except as noted in HPI & below Physical Exam Physical Exam: Constitutional: WD/WN, vitals as above, NAD, sitting up in bed, pleasant, conversing easily Head: Normocephalic, Atraumatic, Healed Scar to L cheek Eyes: PERRL, conjunctivae normal, anicteric sclerae ENMT: external ear and nose normal, oropharynx normal Neck: trachea midline, no thyromegaly normal visual inspection Respiratory: normal respiratory effort, lungs clear to auscultation, no wheeze, rales, rhonchi. Normal insp/exp effort, no accessory muscle use Cardiovascular: RRR, no murmur, no edema Vessels: no JVD or carotid bruit Chest: normal inspection of chest Abdomen: + abd binder in place, LLQ intrathecal pump placement, normal bowel sounds, soft, nontender, no hepatosplenomegaly Musculoskeletal: no cyanosis or clubbing, arom x 3, significant decrease rom to RUE with abduction/adduction, flex/extension. able to passively flex R shoulder to less than 90 degrees Skin: no rashes, warm and dry normal turgor Neurologic: PERRL, EOMI, accommodation nl, no face palsy, no dysarthria CN's II-XI intact bilaterally and moves all extremities Psychiatric: A+Ox3, euthymic affect Lymphatic: no cervical or axillary lymphadenopathy : deferred Results & Data ([facility]) Vital Signs (Past 12 Hours) Vital Signs Temp Pulse Pulse Resp BP Pulse Ox O2 Del Method 08/10/22 16:44 36.7 C 100 H 18 120/80 97 Room Air 08/10/22 15:50 96 H 18 146/92 H 93 Room Air 08/10/22 15:35 97 H 18 149/95 H 94 Room Air 08/10/22 15:20 99 H 17 126/91 94 Room Air 08/10/22 15:05 97 H 20 155/98 H 93 Room Air 08/10/22 14:55 36.7 C 96 H 16 140/94 94 Room Air 08/10/22 14:45 97 H 13 150/89 H 94 Room Air 08/10/22 14:35 94 H 15 138/96 100 Oxymask 08/10/22 14:25 36.6 C 92 H 16 137/87 100 Oxymask 08/10/22 12:21 36.6 C 82 18 141/87 H 100 Room Air O2 Flow Rate 08/10/22 16:44 08/10/22 15:50 08/10/22 15:35 08/10/22 15:20 08/10/22 15:05 08/10/22 14:55 08/10/22 14:45 08/10/22 14:35 5 08/10/22 14:25 5 08/10/22 12:21 Laboratory Results pre op labs 07/29/22 CBC: H&H 10.6 and 34.2, WC 6.73, platelet 354 BMP 06/28/2022 Sodium 140, K4.1, BUN 22, creatinine 0.73, glucose 84 Diagnostic Findings shoulder Xray: 08/08/22 unremarkable appearance of reverse R tsa Medications Administered Current Inpatient Medications Acetaminophen (Acetaminophen 500 Mg Tab) 500 mg PO Q8H PRN PRN Reason: Pain or Fever Stop: 09/09/22 14:50 Hydrocodone Bitart/Acetaminophen (Hydrocodone/Acetamophen 5/325mg Tab) 1 tab PO Q6H PRN PRN Reason: Pain Stop: 08/24/22 14:50 Amlodipine Besylate (Amlodipine Besylate 5 Mg Tab) 5 mg PO QAM MICHELLE Stop: 09/10/22 08:59 Atorvastatin Calcium (Atorvastatin 20 Mg Tab) 20 mg PO QAM MICHELLE Stop: 09/10/22 08:59 Diphenhydramine HCl (Diphenhydramine Capsule 25 Mg Cap) 50 mg PO Q6H PRN PRN Reason: Itch or sleep Stop: 09/09/22 14:50 Docusate Sodium (Docusate Sodium 100 Mg Cap) 100 mg PO BID MICHELLE Stop: 09/09/22 20:59 Doxycycline Hyclate (Doxycycline Hyclate 50 Mg Cap) 50 mg PO Q2D@2200 MICHELLE Stop: 09/09/22 21:59 Escitalopram Oxalate (Escitalopram Oxalate 20 Mg Tab) 20 mg PO QAM [facility] Stop: 09/10/22 08:59 Miscellaneous (Teriflunomide: Order Awaiting Action) 1 each N/A QS [facility] Stop: 09/10/22 00:00 Miscellaneous (Zanalfex: Order Awaiting Action) 1 each N/A QS [facility] Stop: 09/10/22 00:00 Multivitamins/Minerals (Cerovite Adv Formula Tab) [facility]: 09/10/22 08:59 Naloxone HCl (Naloxone Hcl 0.4 Mg/1 Ml Vial/Carp) 0.4 mg IV UD PRN PRN Reason: Opiate Reversal-Resp below 10 Stop: 09/09/22 14:50 Ondansetron HCl (Ondansetron Inj 2 Mg/Ml 2 Ml Vial) 4 mg IV Q4H PRN PRN Reason: Nausea And Vomiting Stop: 09/09/22 14:50 Oxybutynin Chloride (Oxybutynin Chloride Xl 5 Mg Tabcr) [facility] Stop: 09/10/22 08:59 Pantoprazole Sodium (Pantoprazole 40 Mg Tab) [facility] Stop: 09/10/22 08:59 Prednisone (Prednisone 10 Mg Tablet) [facility] Stop: 09/10/22 08:59 Sucralfate (Sucralfate 1 Gm/10 Ml Udc) 1 gm PO QID [facility] Stop: 09/09/22 16:59 Vitamin D (Cholecalciferol 1,000 Units 25 Mcg Tab) 1,000 [facility] Stop: 09/10/22 08:59 ECG Additional Comments: 05/13/22 sinus tachycardia 101 qtc 438ms
[2022-08-10 18:41] LABS: Hematocrit (blood only) 28.4 % (34.1-44.9); Hemoglobin 9.1 g/dl (12.0-16.0); Mean Corpuscular Hemoglobin 30.2 pg (25.0-34.0); Mean Corpuscular Volume 94.4 fL (80.0-100.0); Mean Platelet Volume 10.1 fL (9.4-12.3); Platelet Count 217 K/uL (130-400); RDW Standard Deviation 47.6 fL (36.4-46.3); Red Blood Count 3.01 M/uL (3.93-5.22); White Blood Count 7.39 K/ul (4.8-10.8)
[2022-08-10 18:47] LABS: BUN Creatinine Ratio 25.7 (10-20); Calcium 8.4 mg/dl (8.5-10.1); Creatinine Clr Calc Pharmacy 44.6 ml/min; Est GFR (African American) 57.4 ml/min; Est GFR (Non-African American) 49.6 ml/min; Potassium 4.5 mmol/L (3.5-5.1)
[2022-08-10] MEDS ORDERED: SODIUM CHLORIDE 0.9% 1000ML 500 ML IV ONE (18:48)
[2022-08-10] MEDS ORDERED: BACLOFEN 10 MG TAB PO PRN (19:12)
[2022-08-10 19:49] LABS: Basophils # (auto) 0.02 K/uL (0-0.2); Basophils % (auto) 0.3 %; Immature Granulocytes # (auto) 0.04 K/uL (0.00-0.02); Immature Granulocytes % (auto) 0.5 %; Lymphocytes # (auto) 0.24 K/uL (1.2-3.4); Lymphocytes % (auto) 3.2 %; Monocytes # (auto) 0.11 K/uL (0.24-0.82); Monocytes % (auto) 1.5 %; Neutrophils # (auto) 6.98 K/uL (1.4-6.5); Neutrophils % (auto) 94.5 %; Schistocytes 1+
[2022-08-10] MEDS ORDERED: NEOMYCIN/POLYMYX/HYDROCORT OT SOLN 10 ML BTL OT SCH (21:00)
[2022-08-10] MEDS: ERTAPENEM SODIUM 1,000 MG in SYRINGE 0 ML IV SCH (21:13)
[2022-08-10] MEDS: DOCUSATE SODIUM 100 MG CAP PO SCH (21:14)
[2022-08-10] MEDS: SUCRALFATE 1 GM/10 ML UDC PO SCH ×2 (21:14→23:51)
[2022-08-10 21:54] LABS: Appearance Urine Clear (Clear); Bacteria Urine Automated Negative (Negative); Bilirubin Urine Negative (Negative); Blood Urine Negative (Negative); Color Urine Yellow; Glucose Urine UA Negative (Negative); Ketones Urine Trace (Negative); Leukocyte Esterase Urine 2+ (Negative); Nitrite Urine Negative (Negative); Protein Urine Negative (Negative); RBC Urine Automated 0-4 /hpf (0-4); Specific Gravity Urine 1.013 (1.000-1.030); Urobilinogen Urine Negative (Negative); WBC Urine Automated >30 /hpf (0-5); pH Urine 5.5 (4.5-7.5)
[2022-08-10] MEDS ORDERED: DOXYCYCLINE HYCLATE 50 MG CAP PO SCH (22:00)
[2022-08-10] MEDS: [UNRECOGNIZED DRUG - OTHER] PO SCH (23:50)
[2022-08-10] MEDS: TIZANIDINE HCL PO SCH (23:50)
[2022-08-10] MEDS: TERIFLUNOMIDE PO SCH (23:51)
[2022-08-11 06:23] LABS: Basophils # (auto) 0.01 K/uL (0-0.2); Basophils % (auto) 0.1 %; Hematocrit (blood only) 28.2 % (34.1-44.9); Immature Granulocytes # (auto) 0.01 K/uL (0.00-0.02); Immature Granulocytes % (auto) 0.1 %; Lymphocytes # (auto) 0.42 K/uL (1.2-3.4); Lymphocytes % (auto) 6.2 %; Mean Corpuscular Hemoglobin 29.8 pg (25.0-34.0); Mean Corpuscular Hgb Conc 31.9 g/dL (32.0-36.0); Mean Corpuscular Volume 93.4 fL (80.0-100.0); Mean Platelet Volume 9.9 fL (9.4-12.3); Monocytes # (auto) 0.66 K/uL (0.24-0.82); Monocytes % (auto) 9.8 %; Neutrophils # (auto) 5.66 K/uL (1.4-6.5); Neutrophils % (auto) 83.8 %; Platelet Count 211 K/uL (130-400); RDW Coefficient of Variation 14.1 % (11.5-14.5); Red Blood Count 3.02 M/uL (3.93-5.22); White Blood Count 6.76 K/ul (4.8-10.8)
[2022-08-11 06:50] LABS: Albumin Globulin Ratio 1.5 (0.9-2); Albumin Level 3.4 gm/dl (3.4-5.0); Bilirubin,Total 0.3 mg/dl (0.2-1.0); Calcium 8.2 mg/dl (8.5-10.1); Est GFR (African American) 77.7 ml/min; Globulin 2.3 gm/dl (2.5-4.0); Magnesium 2.1 mg/dl (1.7-2.4); Potassium 4.3 mmol/L (3.5-5.1); Total Protein 5.7 gm/dl (6.0-8.3)
--- NOTE | 2022-08-11 06:52 | Orthopedic Consultation ---
Date of Service August 11, 2022 Assessment & Plan (1) Status post reverse total replacement of right shoulder: Fortunately the shoulder x-rays look okay. I do want to get a CT scan of the right shoulder. I want a make sure that there is no issues with the screws and I want to rule out any scapular or stress fractures. This will likely be nonoperative, but I would like to give her and her family a better timeframe for how long this will take to get better. Right now she can stay in a sling for comfort. History of Present Illness Reason for Consultation: Right shoulder pain. Requesting Physician: . Attending Physician: Solange Wall DO Kandy is a pleasant 71-year-old female who is now 10 weeks status post a right reverse shoulder arthroplasty. She had severe arthritis and bone loss preoperatively. Postoperatively she is done very well with the right shoulder. She has been living alone. She is regained forward elevation to about 120 degrees. She was essentially pain-free. On Tuesday she was using the commode. She was trying to pull down her pants when she slipped off the commode and braced herself with her right shoulder. She began having significant right shoulder pain. She went to the emergency room where radiographs were negative. The family was concerned about her living alone with the shoulder pain. She is also having issues with her baclofen pump. She has a history of multiple sclerosis with spasticity. She has been admitted to the hospital. Orthopedics was consulted for evaluation of the right shoulder.. Allergies Allergy/AdvReac Type Severity Reaction Status Date / Time No Known Allergies Allergy Verified 08/10/22 12:14 Home Medications Medication Instructions Recorded Confirmed Type cholecalciferol (vitamin D3) 25 1,000 units PO QAM 09/18/18 08/10/22 History mcg (1,000 unit) capsule escitalopram oxalate 20 mg tablet 20 mg PO QAM 09/18/18 08/10/22 History (Lexapro) oxybutynin chloride 15 mg 15 mg PO QAM 09/18/18 08/10/22 History tablet,extended release 24 hr prednisone 10 mg tablet 10 mg PO QAM 09/18/18 08/10/22 History omeprazole 40 mg capsule,delayed 40 mg PO QAM 07/06/21 08/10/22 History release amlodipine 5 mg tablet (Norvasc) 5 mg PO QAM #30 tabs 07/09/21 08/10/22 Rx apixaban 5 mg tablet (Eliquis) 5 mg PO BID #60 tabs 07/09/21 08/10/22 Rx clopidogrel 75 mg tablet 75 mg PO QAM #30 tabs 07/09/21 08/10/22 Rx sucralfate 100 mg/mL oral 10 ml PO QID 05/13/22 08/10/22 History suspension (Carafate) teriflunomide 14 mg tablet 14 mg PO QPM 05/13/22 08/10/22 History (Aubagio) tizanidine 4 mg tablet (Zanaflex) 4 mg PO QID 05/13/22 08/10/22 History multivitamin with minerals 1 tab PO QAM 07/28/22 08/10/22 History (Hair,Skin and Nails tablet) atorvastatin 20 mg tablet (Lipitor) 20 mg PO QAM 08/10/22 08/10/22 History doxycycline hyclate 50 mg capsule 50 mg PO Q OTHER DAY Rosacea 08/10/22 08/10/22 History Past Med/Surg History Medical History Anemia CAD (coronary artery disease) Non-obstructive per 06/2021 cardiac cath GERD (gastroesophageal reflux disease) controlled, stable per pt History of blood transfusion History of DVT (deep vein thrombosis) ~6 yrs ago History of GI bleed Upper GIB (2019) felt 2/2 NSAID use History of non-ST elevation myocardial infarction (NSTEMI) 06/2021 (had heart cath, no stents) History of pulmonary embolism ~ 6 yrs ago, IVC filter still in place History of supraventricular tachycardia Hx of gastric ulcer 02/2021 HX: breast cancer Left breast cancer with surgery and chemo/radiation-left arm restriction Hypertension controlled, stable per pt Limb alert care status left arm Multiple sclerosis Follows with Dr. Walker/[facility] Stable Neurogenic bladder SELF CATH 2-3 X'S PER DAY *RECENT HOSPITALIZATION FOR UTI Osteoarthritis of right shoulder Osteoporosis Raynaud disease Surgical History H/O left mastectomy with lymph node removal>LEFT ARM RESTRICTION History of appendectomy History of cardiac cath Cardiac cath (07/06/21; [facility]) > Right dominant coronary system. No evidence of aortic stenosis. Normal left ventricular filling pressures. Nonobstructive disease involving the ostial LAD. No evidence of acute coronary syndrome. Approximately 50% ostial stenosis of the LAD. There was some very mild disease at the ostium of the left circumflex. Recommendations: Medical management. History of colonoscopy History of esophagogastroduodenoscopy (EGD) History of open reduction and internal fixation (ORIF) procedure "left hip" History of tooth extraction Presence of intrathecal pump baclofen pump in place "HAS NO REMOTE OR INSTRUCTIONS" S/P IVC filter S/P partial hysterectomy S/p reverse total shoulder arthroplasty right: 05/25/22 LMA#4. No postop issues per anesthesia progress note. Family History Mother Heart disorder Other No family history of adverse response to anesthesia Social History Smoking Status: Never smoker packs per day: 1; Years Smoked: 10; Smoking End Date: ; Second Hand Exposure: No; Do You Dip or Chew Tobacco: No; Tobacco Cessation Education Requested by Patient: No Hx Alcohol Use: No Hx Substance Use: No Preferred Language: [place] Communication Ability: Effective Visual Impairment: No Limitations Hearing Ability: Normal Radiologic Tech Required: No Beliefs That Will Affect Care: None marital status: / Current Living Situation: Alone Current Living Situation Comment: home alone- uses walker but needs a new one current occupational status: retired How many Children do You have: 3 Other Information That Helps Us Care for You: No Feels Safe at Home: Yes Safety Concerns: Feels Safe At This Time Childhood Exposure to Second-Hand Smoke: Yes Assistive Devices: Walker Assistive Devices Comment: reports she slides from WC to bed at home. Review of Systems All systems reviewed & are unremarkable except as noted in HPI & below. Physical Exam On physical examination the right shoulder, passively I can get her to about 90 degrees of forward elevation 60 degrees of abduction 30 degrees of external rotation. She has a relatively pain-free passive range of motion. Actively she can initiate some forward elevation but not much. She does not have much pain around the shoulder but she does have a lot of pain over the spine of the scapula.. Constitutional WD/WN, vitals as above Eyes PERRL, conjunctivae normal, anicteric sclerae ENMT external ear and nose normal, oropharynx normal Neck trachea midline, no thyromegaly Respiratory normal respiratory effort, lungs clear to auscultation Cardiovascular RRR, no murmur, no edema Gastrointestinal (Abdomen) normal bowel sounds, soft, nontender, no hepatosplenomegaly Skin no rashes, warm and dry Psychiatric A+Ox3, euthymic affect Results & Data Results & Data Laboratory Results . Diagnostic Findings X-rays of the right shoulder show the prosthesis to be in good alignment. I do not see any complications of the hardware. I do not see any scapular fractures on these x-rays.. PG Care Time/CCT Total # of Minutes Spent Total Time Spent with Patient: Total time spent is greater than 50% in coordination of care (as documented) at patient's floor/unit and/or counseling patient: Coding Level of Care Code 04811 Inpt Consult Level 4 (25 - SIGNIFICANT, SEPARATELY IDENTIFIABLE ) Diagnoses Status post reverse total replacement of right shoulder Z96.611
[2022-08-11] MEDS: CLOPIDOGREL BISULFATE 75 MG TAB PO SCH (07:33)
[2022-08-11] MEDS: DOCUSATE SODIUM 100 MG CAP PO SCH ×2 (07:33→23:08)
[2022-08-11] MEDS: ESCITALOPRAM OXALATE 20 MG TAB PO SCH (07:34)
[2022-08-11] MEDS: CHOLECALCIFEROL 1,000 UNITS 25 MCG TAB PO SCH (07:34)
[2022-08-11] MEDS: PANTOprazole 40 MG TAB PO SCH (07:34)
[2022-08-11] MEDS: OXYBUTYNIN CHLORIDE XL 5 MG TABCR PO SCH (07:34)
[2022-08-11] MEDS: CEROVITE ADV FORMULA TAB PO SCH (07:34)
[2022-08-11] MEDS: APIXABAN 5 MG TABLET PO SCH ×2 (07:35→23:08)
[2022-08-11] MEDS: amLODIPine BESYLATE 5 MG TAB PO SCH (07:35)
[2022-08-11] MEDS: ATORVASTATIN 20 MG TAB PO SCH (07:35)
[2022-08-11] MEDS: SUCRALFATE 1 GM/10 ML UDC PO SCH ×4 (07:36→23:08)
[2022-08-11] MEDS: predniSONE 10 MG TABLET PO SCH (07:36)
[2022-08-11] MEDS: [UNRECOGNIZED DRUG - OTHER] PO SCH ×4 (07:37→23:03)
[2022-08-11] MEDS: TIZANIDINE HCL PO SCH ×4 (07:37→23:03)
--- NOTE | 2022-08-11 08:38 | Hospitalist Progress Note ---
Date of Service August 11, 2022 Assessment & Plan (1) Presence of intrathecal pump: (2) Multiple sclerosis: (3) Fall: (4) Acute shoulder pain: (5) CAD (coronary artery disease): (6) History of pulmonary embolism: Plan This is a 71-year-old female who has a significant past medical history of MS with spasticity, chronic intrathecal baclofen pump for spasticity, neurogenic bladder doing a chest catheterization, iron deficiency anemia, history of DVT/PE on Eliquis, depression, CAD, history of GI bleed, history of SVT who presented for elective exchange of her intrathecal baclofen pain pump by Dr. Fishman. Presence of intrathecal pump Status post replacement of intrathecal baclofen pump with replacement of intrathecal catheter, POD #1, Dr. Fishman Multiple Sclerosis pt [facility] tele plan was for d/c but given ambulatory dysfxn, R shoulder pain family unable to take patient home PT/OT continue aubagio, prednisone CM consulted - dispo to be determined pending PT/OT evals Acute R shoulder pain Fall S/P R reverse total shoulder by Dr. Oneil 05/25/22 pt fell 5 days ago on R shoulder, now with significant lack of ROM and pain to RUE pt mostly wheelchair bound but does transfer to chair by self, previously was walking with 4 point walker given R shoulder pain now significantly limited [facility] consulted Xray show intact replacement but concern for rotator cuff tear vs. frozen shoulder CT shoulder IMPRESSION: 1. Acute minimally displaced fractures of the right acromion and right scapular body, as above. 2. Anatomic alignment of the total right shoulder arthroplasty. Neurogenic bladder hx of UTI continue oxybutnin will use purwic cath, at home pt self caths at HS Hx of PE/DVT continue eliquis CAD continue statin, plavix HTN continue amlodipine Generalized Weakness PT/OT Iron def anemia pt is receiving iron infusions as OP, last 08/09 Hemoglobin and hematocrit 10.5 and 33.0 as outpatient Iron screen revealed transferrin saturation 9%, ferritin 82, iron low at 24 follow cbc Abnormal Urinalysis ESBL OP revealed ESBL in [id number] on 08/04/22 repeat cathed UA not c/w UTI, follow urine cultx may be contributing to weakness given hx of UTI empirically start IV ertapenem per admitting team contact precautions ordered ID consult placed DVT ppx: SQ Eliquis Dispo: tele, need PT/oT consults, ortho eval, possible placement for rehab given shoulder FULL CODE PCP: Dr. Zoey Schmid Admission and Anticipated Discharge Date Admission Date: August 10, 2022 Subjective Patient seen in follow-up after replacement of intrathecal baclofen pump History of right shoulder surgery, and fall, orthopedics consulted History of UTI, started on ertapenem by admitting team, ID consult also placed Currently patient is sitting up in a chair, in no acute distress She is alert oriented, answering appropriately Denies any fevers, chills, chest pain, shortness of breath, abdominal pain, nausea vomiting or dysuria Review of Systems Review of Systems: All systems reviewed & are unremarkable except as noted in Subjective Physical Exam Physical Exam: Constitutional: WD/WN, NAD, sitting up in chair Head: Normocephalic, Atraumatic, Healed Scar to L cheek Eyes: EOMI, conjunctivae normal, anicteric sclerae ENMT: external ear and nose normal, oropharynx normal Neck: normal visual inspection Respiratory: normal respiratory effort, lungs clear to auscultation, no wheeze, rales, rhonchi. Cardiovascular: RRR, no murmur, no edema Chest: normal inspection of chest Abdomen: + abd binder in place, LLQ intrathecal pump placement, normal bowel sounds, soft, nontender Musculoskeletal: no cyanosis or clubbing, arom x 3, significant decrease rom to RUE with abduction/adduction, flex/extension. able to passively flex R shoulder to less than 90 degrees Skin: no rashes, warm and dry normal turgor Neurologic: PERRL, EOMI, no face palsy, answering questions appropriately no dysarthria, moves all extremities Psychiatric: A+Ox3, euthymic affect Results & Data Results & Data ([facility]) Vital Signs (Past 12 Hours) Vital Signs Temp Pulse Pulse Resp BP Pulse Ox O2 Del Method 08/11/22 07:20 36.9 C 86 18 113/72 94 Room Air 08/11/22 03:27 36.6 C 83 18 121/73 92 Room Air 08/10/22 22:17 90 08/10/22 23:55 Room Air 08/10/22 23:11 37.0 C 90 18 112/72 94 Room Air Laboratory Results 08/11/22 08/11/22 08/10/22 Range/Units 05:52 05:52 21:25 WBC 6.76 (4.8-10.8) K/ul RBC 3.02 L (3.93-5.22) M/uL Hgb 9.0 L (12.0-16.0) g/dl Hct 28.2 L (34.1-44.9) % MCV 93.4 (80.0-100.0) fL MCH 29.8 (25.0-34.0) pg MCHC 31.9 L (32.0-36.0) g/dL RDW Std Deviation 48.0 H (36.4-46.3) fL RDW Coeff of Tiffanie 14.1 (11.5-14.5) % Plt Count 211 (130-400) K/uL MPV 9.9 (9.4-12.3) fL Immature Gran % (Auto) 0.1 % Neut % (Auto) 83.8 % Lymph % (Auto) 6.2 % [place] % (Auto) 9.8 % Eos % (Auto) 0.0 % Baso % (Auto) 0.1 % Neut # (Auto) 5.66 (1.4-6.5) K/uL Lymph # (Auto) 0.42 L (1.2-3.4) K/uL [place] # (Auto) 0.66 (0.24-0.82) K/uL Eos # (Auto) 0.00 (0-0.50) K/uL Baso # (Auto) 0.01 (0-0.2) K/uL Immature Gran # (Auto) 0.01 (0.00-0.02) K/uL Schistocytes Sodium 138 (136-145) mmol/L Potassium 4.3 (3.5-5.1) mmol/L Chloride 105 (98-107) mmol/L Carbon Dioxide 26 (21-32) mmol/L Anion Gap 7 (3-11) BUN 29 H (6-23) mg/dl Creatinine 0.88 (0.6-1.2) mg/dl Est Cr Clr Drug Dosing 58.0 ml/min Est GFR ( Amer) 77.7 ml/min Est GFR (Non-Af Amer) 67.0 ml/min BUN/Creatinine Ratio 33.0 H (10-20) Glucose 107 H (70-99(Fasting)) mg/dl Calcium 8.2 L (8.5-10.1) mg/dl Magnesium 2.1 (1.7-2.4) mg/dl Total Bilirubin 0.3 (0.2-1.0) mg/dl AST 23 (13-39) U/L ALT 16 (7-52) U/L Alkaline Phosphatase 65 (34-104) U/L Total Protein 5.7 L (6.0-8.3) gm/dl Albumin 3.4 (3.4-5.0) gm/dl Globulin 2.3 L (2.5-4.0) gm/dl Albumin/Globulin Ratio 1.5 (0.9-2) Urine Color Yellow Urine Appearance Clear (Clear) Urine pH 5.5 (4.5-7.5) Ur Specific [place] 1.013 (1.000-1.030) Urine Protein Negative (Negative) Urine Glucose (UA) Negative (Negative) Urine Ketones Trace H (Negative) Urine Blood Negative (Negative) Urine Nitrite Negative (Negative) Urine Bilirubin Negative (Negative) Urine Urobilinogen Negative (Negative) Ur Leukocyte Esterase 2+ H (Negative) Urine WBC (Auto) >30 H (0-5) /hpf Urine RBC (Auto) 0-4 (0-4) /hpf U Hyaline Cast (Auto) 1-5 (0-5) /lpf U Epithel Cells (Auto) 5-10 H (0-5) /lpf Urine Bacteria (Auto) Negative (Negative) 08/10/22 08/10/22 Range/Units 18:03 18:03 WBC 7.39 (4.8-10.8) K/ul RBC 3.01 L (3.93-5.22) M/uL Hgb 9.1 L (12.0-16.0) g/dl Hct 28.4 L (34.1-44.9) % MCV 94.4 (80.0-100.0) fL MCH 30.2 (25.0-34.0) pg MCHC 32.0 (32.0-36.0) g/dL RDW Std Deviation 47.6 H (36.4-46.3) fL RDW Coeff of T[place]anie 14.0 (11.5-14.5) % Plt Count 217 (130-400) K/uL MPV 10.1 (9.4-12.3) fL Immature Gran % (Auto) 0.5 % Neut % (Auto) 94.5 % Lymph % (Auto) 3.2 % [place] % (Auto) 1.5 % Eos % (Auto) 0.0 % Baso % (Auto) 0.3 % Neut # (Auto) 6.98 H (1.4-6.5) K/uL Lymph # (Auto) 0.24 L (1.2-3.4) K/uL [place] # (Auto) 0.11 L (0.24-0.82) K/uL Eos # (Auto) 0.00 (0-0.50) K/uL Baso # (Auto) 0.02 (0-0.2) K/uL Immature Gran # (Auto) 0.04 H (0.00-0.02) K/uL Schistocytes 1+ Sodium 137 (136-145) mmol/L Potassium 4.5 (3.5-5.1) mmol/L Chloride 103 (98-107) mmol/L Carbon Dioxide 25 (21-32) mmol/L Anion Gap 9 (3-11) BUN 29 H (6-23) mg/dl Creatinine 1.13 (0.6-1.2) mg/dl Est Cr Clr Drug Dosing 44.6 ml/min Est GFR ( Amer) 57.4 ml/min Est GFR (Non-Af Amer) 49.6 ml/min BUN/Creatinine Ratio 25.7 H (10-20) Glucose 171 H (70-99(Fasting)) mg/dl Calcium 8.4 L (8.5-10.1) mg/dl Magnesium (1.7-2.4) mg/dl Total Bilirubin (0.2-1.0) mg/dl AST (13-39) U/L ALT (7-52) U/L Alkaline Phosphatase (34-104) U/L Total Protein (6.0-8.3) gm/dl Albumin (3.4-5.0) gm/dl Globulin (2.5-4.0) gm/dl Albumin/Globulin Ratio (0.9-2) Urine Color Urine Appearance (Clear) Urine pH (4.5-7.5) Ur Specific [place] (1.000-1.030) Urine Protein (Negative) Urine Glucose (UA) (Negative) Urine Ketones (Negative) Urine Blood (Negative) Urine Nitrite (Negative) Urine Bilirubin (Negative) Urine Urobilinogen (Negative) Ur Leukocyte Esterase (Negative) Urine WBC (Auto) (0-5) /hpf Urine RBC (Auto) (0-4) /hpf U Hyaline Cast (Auto) (0-5) /lpf U Epithel Cells (Auto) (0-5) /lpf Urine Bacteria (Auto) (Negative) Medications Administered Current Inpatient Medications Acetaminophen (Acetaminophen 500 Mg Tab) 500 mg PO Q8H PRN PRN Reason: Pain or Fever Stop: 09/09/22 14:50 Hydrocodone Bitart/Acetaminophen (Hydrocodone/Acetamophen 5/325mg Tab) 1 tab PO Q6H PRN PRN Reason: Pain Stop: 08/24/22 14:50 Amlodipine Besylate (Amlodipine Besylate 5 Mg Tab) 5 mg PO QAM [facility] Stop: 09/10/22 08:59 Last Admin: 08/11/22 07:35 Dose: 5 mg Apixaban (Apixaban 5 Mg Tablet) 5 mg PO BID [facility] Stop: 09/10/22 08:59 Last Admin: 08/11/22 07:35 Dose: 5 mg Atorvastatin Calcium (Atorvastatin 20 Mg Tab) 20 mg PO QAM [facility] Stop: 09/10/22 08:59 Last Admin: 08/11/22 07:35 Dose: 20 mg Baclofen (Baclofen 10 Mg Tab) 10 mg PO Q6H PRN PRN Reason: spasticity of limbs Stop: 09/09/22 19:14 Clopidogrel Bisulfate (Clopidogrel Bisulfate 75 Mg Tab) 75 mg PO QAM [facility] Stop: 09/10/22 08:59 Last Admin: 08/11/22 07:33 Dose: 75 mg Diphenhydramine HCl (Diphenhydramine Capsule 25 Mg Cap) 50 mg PO Q6H PRN PRN Reason: Itch or sleep Stop: 09/09/22 14:50 Docusate Sodium (Docusate Sodium 100 Mg Cap) 100 mg PO BID [facility] Stop: 09/09/22 20:59 Last Admin: 08/11/22 07:33 Dose: 100 mg Doxycycline Hyclate (Doxycycline Hyclate 50 Mg Cap) 50 mg PO Q2D@2200 [facility] Stop: 09/09/22 21:59 Last Admin: 08/10/22 21:14 Dose: 50 mg Escitalopram Oxalate (Escitalopram Oxalate 20 Mg Tab) 20 mg PO QAM [facility] Stop: 09/10/22 08:59 Last Admin: 08/11/22 07:34 Dose: 20 mg Ertapenem 1,000 mg/ Syringe 10 mls @ 2 mls/min IV Q24H MICHELLE; Protocol Stop: 08/20/22 17:59 Last Admin: 08/10/22 21:13 Dose: 2 mls/min Multivitamins/Minerals (Cerovite Adv Formula Tab) 1 tab PO QAM [facility] Stop: 09/10/22 08:59 Last Admin: 08/11/22 07:34 Dose: 1 tab Naloxone HCl (Naloxone Hcl 0.4 Mg/1 Ml Vial/Carp) 0.4 mg IV UD PRN PRN Reason: Opiate Reversal-Resp below 10 Stop: 09/09/22 14:50 Teriflunomide - (Patient's Own Med) 1 each PO PM [facility] Stop: 09/09/22 22:59 Last Admin: 08/10/22 23:51 Dose: 1 tabs Ondansetron HCl (Ondansetron Inj 2 Mg/Ml 2 Ml Vial) 4 mg IV Q4H PRN PRN Reason: Nausea And Vomiting Stop: 09/09/22 14:50 Oxybutynin Chloride (Oxybutynin Chloride Xl 5 Mg Tabcr) [facility] Stop: 09/10/22 08:59 Last Admin: 08/11/22 07:34 Dose: 15 mg Pantoprazole Sodium (Pantoprazole 40 Mg Tab) 40 mg PO QAM [facility] Stop: 09/10/22 08:59 Last Admin: 08/11/22 07:34 Dose: 40 mg Prednisone (Prednisone 10 Mg Tablet) 10 mg PO QAM [facility] Stop: 09/10/22 08:59 Last Admin: 08/11/22 07:36 Dose: 10 mg Sucralfate (Sucralfate 1 Gm/10 Ml Udc) 1 gm PO QID [facility] Stop: 09/09/22 16:59 Last Admin: 08/11/22 07:36 Dose: 1 gm Tizanidine HCl (Pom - *Brand* Tizanidine Hcl 4 Mg Tablet) 4 mg PO QID [facility] Stop: 09/09/22 22:59 Last Admin: 08/11/22 07:37 Dose: 4 mg Vitamin D (Cholecalciferol 1,000 Units 25 Mcg Tab) 1,000 units PO QAM [facility] Stop: 09/10/22 08:59 Last Admin: 08/11/22 07:34 Dose: 1,000 units
--- NOTE | 2022-08-11 08:53 | Pain Management Progress Note ---
Date of Service August 11, 2022 Assessment & Plan (1) Presence of intrathecal pump: (2) Multiple sclerosis: (3) Status post reverse total replacement of right shoulder: Plan 1. POD #1 status post intrathecal baclofen pump revision/replacement with adequate spasticity control. No need for intrathecal baclofen dose adjustment. Patient will maintain current dose without change. It was recommended that she continue with abdominal binder utilization 24 hours/day. Aquacel dressing will remain in place x1 week. 2. Patient undergo evaluation with PT/OT to determine functional status and plan for placement 3. Continue care with Ortho regarding her right shoulder pain status post total shoulder replacement April 29, 2022 with recent fall injury 5 days ago 4. Hospitalist service on board with current treatment for UTI with history of neurogenic bladder Admission and Anticipated Discharge Date Admission Date: August 10, 2022 Subjective Mrs. Shelby is POD #1 from intrathecal baclofen pump replacement due to end-of-life battery status. Patient is indicating adequate control of spasticity. She denies feeling too weak/floppy relating to her current intrathecal baclofen dose. She denies any overt spasticity or tightness. She has not utilized oral baclofen. She denies abdominal discomfort at the incisional site. She continues to utilize abdominal binder. She continues with diminished range of motion of the right shoulder and some right shoulder pain status post a fall in the home last Tuesday and was evaluated by Dr. Oneil earlier today. She has history of right shoulder replacement April 2022. CT of the right shoulder has been ordered by Dr. Oneil. Patient continues with her chronic ambulatory dysfunction as a byproduct of her MS more recently complicated by the right shoulder pain status post a fall injury last Tuesday. Patient chronically wheelchair-bound but self transfers and still drives. Patient has no further constitutional complaints at this time. Plan of care discussed with Dr. Hannah Fishman. Pain Assessment Pain Assessment Full Body Front + Back: 1. Right shoulder Pain scale - at its best (0-10): 0 Pain scale - at its worst (0-10): 5 Physical Exam Physical Exam: General: Patient lying quietly upon entering the room in no acute distress. Speech and thought process appropriate. Mood and affect appropriate. Cognition intact. Right shoulder: Minimally tender over the posterior rotator cuff and deltoid region to direct palpation. Passive range of motion with minimal limitation with flexion-roughly 90 degrees. Returning to neutral with extension causes increased pain passively. Minimal active range of motion. Abdomen: Abdominal binder was removed for visual inspection. Aquacel dressing remains in place in the left lower quadrant which was not removed for visual inspection. Pump is nontender to direct outpatient and not mobile. Upper extremities: Handgrip, opposition and biceps/triceps strength 5/5 and equal. Neurologic: Cranial nerves grossly intact.
--- NOTE | 2022-08-11 10:52 | CT Scan Report ---
RIGHT SHOULDER CT WITHOUT CONTRAST CLINICAL HISTORY: Right shoulder pain following reverse arthroplasty. scapular stress fxr? COMPARISON STUDY: CT of the right shoulder March 02, 2022. Right shoulder radiographs August 08. TECHNIQUE: Axial images of the right shoulder were obtained without IV contrast. Sagittal and coronal reconstructions were viewed. Automated exposure control was utilized for the study. A dose lowering technique was utilized adhering to the principles of ALARA. FINDINGS: Alignment of the reverse total right shoulder arthroplasty is anatomic. There is subtle per iosteal reaction of the proximal right humerus. This is not acute. There is an acute mildly displaced fracture of the right scapular body. In addition, there is an acute minimally distracted fracture of the acromion. No additional acute fractures are identified. Incidental note is made of an os acromia le. Alignment of the right acromioclavicular joint is anatomic. Adjacent soft tissues are suboptimall y assessed given streak artifact from the hardware. However, no significant abnormalities are identif ied. There are no significant abnormalities within visualized portions of the right lung. No fracture s within visualized portions of the right ribs. IMPRESSION: 1. Acute minimally displaced fractures of the right acromion and right scapular body, as above. 2. Anatomic alignment of the total right shoulder arthroplasty. ACT 112: Negative or not required by law. Electronically signed by: Scar Holden M.D. 08/11/2022 10:51 AM
[2022-08-11] MEDS: ERTAPENEM SODIUM 1,000 MG in SYRINGE 0 ML IV SCH (17:49)
[2022-08-11] MEDS: TERIFLUNOMIDE PO SCH (23:03)
[2022-08-12] MEDS: APIXABAN 5 MG TABLET PO SCH (07:52)
[2022-08-12] MEDS: CEROVITE ADV FORMULA TAB PO SCH (07:53)
[2022-08-12] MEDS: amLODIPine BESYLATE 5 MG TAB PO SCH (07:53)
[2022-08-12] MEDS: PANTOprazole 40 MG TAB PO SCH (07:53)
[2022-08-12] MEDS: ESCITALOPRAM OXALATE 20 MG TAB PO SCH (07:53)
[2022-08-12] MEDS: CLOPIDOGREL BISULFATE 75 MG TAB PO SCH (07:53)
[2022-08-12] MEDS: predniSONE 10 MG TABLET PO SCH (07:53)
[2022-08-12] MEDS: ATORVASTATIN 20 MG TAB PO SCH (07:53)
[2022-08-12] MEDS: CHOLECALCIFEROL 1,000 UNITS 25 MCG TAB PO SCH (07:54)
[2022-08-12] MEDS: OXYBUTYNIN CHLORIDE XL 5 MG TABCR PO SCH (07:54)
[2022-08-12] MEDS: SUCRALFATE 1 GM/10 ML UDC PO SCH ×2 (07:54→12:32)
[2022-08-12] MEDS: TIZANIDINE HCL PO SCH ×2 (07:55→12:32)
[2022-08-12] MEDS: [UNRECOGNIZED DRUG - OTHER] PO SCH ×2 (07:55→12:32)
[2022-08-12] MEDS: DOCUSATE SODIUM 100 MG CAP PO SCH (07:55)
--- NOTE | 2022-08-12 08:45 | Pain Management Progress Note ---
Date of Service August 12, 2022 Assessment & Plan (1) Presence of intrathecal pump: (2) Multiple sclerosis: (3) Status post reverse total replacement of right shoulder: Plan 1. POD #2 status post intrathecal baclofen pump revision/replacement with adequate spasticity control. No need for intrathecal baclofen dose adjustment. Patient will maintain current dose without change. It was recommended that she continue with abdominal binder utilization 24 hours/day. Aquacel dressing will remain in place x1 week. 2. There is consideration for discharge to [facility] for inpatient rehab stay 3. Continue care with Ortho regarding her right shoulder pain with recent CT evidence of acute minimally displaced fractures of the right acromion and right scapular body 4. Patient will need follow-up in pain clinic at 1 week and 2 weeks status post intrathecal baclofen pump replacement for wound evaluation Admission and Anticipated Discharge Date Admission Date: August 10, 2022 Subjective Ms. Shelby is a 71-year-old white female who is POD #2 status post intrathecal baclofen pump revision/replacement. Patient continues indicate adequate control of her spasticity. She has not utilized oral baclofen for breakthrough spasm. She denies any abdominal pain or discomfort near the incisional site. Patient remains under the care of Ortho regarding her right shoulder pain status post a fall injury as she is status post a complete shoulder replacement procedure April 2022. CT completed yesterday revealed acute minimally displaced fractures of th e right acromion and right scapular body. Nonoperative care has been recommended by Dr. Oneil. She will be placed in a sling. Patient reports there is plans to discharge to [facility] for outpatient rehab. Patient has no further constitution complaints. Plan of care discussed with Dr. Hannah Fishman. Physical Exam Physical Exam: General: Patient lying quietly upon entering the room sleeping. Patient was easily arousable. No acute distress. Speech and thought process appropriate. Mood and affect appropriate. Cognition intact. Abdomen: Abdominal binder was removed for visual inspection. Aquacel dressing remains in place in the left lower quadrant which was not removed for visual inspection. Pump is nontender to direct outpatient and not mobile. Neurologic: Cranial nerves grossly intact.
--- NOTE | 2022-08-12 09:41 | Hospitalist Progress Note ---
Date of Service August 12, 2022 Assessment & Plan (1) Presence of intrathecal pump: (2) Multiple sclerosis: (3) Fall: (4) Acute shoulder pain: (5) CAD (coronary artery disease): (6) History of pulmonary embolism: Plan This is a 71-year-old female who has a significant past medical history of MS with spasticity, chronic intrathecal baclofen pump for spasticity, neurogenic bladder doing a chest catheterization, iron deficiency anemia, history of DVT/PE on Eliquis, depression, CAD, history of GI bleed, history of SVT who presented for elective exchange of her intrathecal baclofen pain pump by Dr. Fishman. Presence of intrathecal pump Status post replacement of intrathecal baclofen pump with replacement of intrathecal catheter, POD #2, Dr. Fishman Multiple Sclerosis pt admitted to [facility] plan was for d/c but given ambulatory dysfxn, R shoulder pain family unable to take patient home PT/OT continue aubagio, prednisone CM consulted - dispo to be determined pending PT/OT evals Acute R shoulder pain Fall S/P R reverse total shoulder by Dr. Oneil 05/25/22 pt fell 5 days ago on R shoulder, now with significant lack of ROM and pain to RUE pt mostly wheelchair bound but does transfer to chair by self, previously was walking with 4 point walker given R shoulder pain now significantly limited [facility] consulted (Dr. Oneil) Xray show intact replacement but concern for rotator cuff tear vs. frozen shoulder CT shoulder IMPRESSION: 1. Acute minimally displaced fractures of the right acromion and right scapular body, as above. 2. Anatomic alignment of the total right shoulder arthroplasty. Neurogenic bladder hx of UTI continue oxybutnin will use purwic cath, at home pt self caths at HS Hx of PE/DVT continue eliquis CAD continue statin, plavix HTN continue amlodipine Generalized Weakness PT/OT Iron def anemia pt is receiving iron infusions as OP, last 08/09 Hemoglobin and hematocrit 10.5 and 33.0 as outpatient Iron screen revealed transferrin saturation 9%, ferritin 82, iron low at 24 follow cbc Abnormal Urinalysis ESBL OP revealed ESBL in [id number] on 08/04/22 repeat cathed UA not c/w UTI, follow urine cultx may be contributing to weakness given hx of UTI empirically started IV ertapenem per admitting team contact precautions ordered ID consult placed -believe this is asymptomatic pyuria, and recommend to stop ertapenem, Abx stopped DVT ppx: Eliquis Dispo: plan to DC to [facility]ULL CODE PCP: Dr. Zoey Schmid Admission and Anticipated Discharge Date Admission Date: August 10, 2022 Subjective Patient seen in follow-up after replacement of intrathecal baclofen pump History of right shoulder surgery, and fall, orthopedics consulted Currently patient is sitting up in a chair, in no acute distress She is alert oriented, answering appropriately Denies any fevers, chills, chest pain, shortness of breath, abdominal pain, nausea vomiting or dysuria Review of Systems Review of Systems: All systems reviewed & are unremarkable except as noted in Subjective Physical Exam Physical Exam: Constitutional: WD/WN, NAD, sitting up in chair Head: Normocephalic, Atraumatic, Healed Scar to L cheek Eyes: EOMI, conjunctivae normal, anicteric sclerae ENMT: external ear and nose normal, oropharynx normal Neck: normal visual inspection Respiratory: normal respiratory effort, lungs clear to auscultation, no wheeze, rales, rhonchi. Cardiovascular: RRR, no murmur, no edema Chest: normal inspection of chest Abdomen: + abd binder in place, intrathecal pump placement, normal bowel sounds, soft, nontender Musculoskeletal:arom x 3, significant decrease rom to RUE with abduction/adduction, flex/extension. able to passively flex R shoulder to less than 90 degrees Skin: no rashes, warm and dry normal turgor Neurologic: PERRL, EOMI, no face palsy, answering questions appropriately no dysarthria, moves all extremities Psychiatric: A+Ox3, euthymic affect Results & Data Results & Data ([facility]) Vital Signs (Past 12 Hours) Vital Signs Temp Pulse Pulse Resp BP Pulse Ox O2 Del Method 08/12/22 09:03 Room Air 08/12/22 08:20 36.6 C 90 18 112/74 95 Room Air 08/12/22 06:51 84 08/12/22 03:00 36.9 C 89 20 117/78 94 Room Air 08/11/22 22:15 86 08/11/22 23:00 36.9 C 88 18 123/78 95 Room Air 08/11/22 22:39 Room Air Laboratory Results 08/12/22 08/12/22 Range/Units 09:28 09:28 WBC 7.47 (4.8-10.8) K/ul RBC 3.23 L (3.93-5.22) M/uL Hgb 9.6 L (12.0-16.0) g/dl Hct 30.9 L (34.1-44.9) % MCV 95.7 (80.0-100.0) fL MCH 29.7 (25.0-34.0) pg MCHC 31.1 L (32.0-36.0) g/dL RDW Std Deviation 49.5 H (36.4-46.3) fL RDW Coeff of Tiffanie 14.4 (11.5-14.5) % Plt Count 235 (130-400) K/uL MPV 10.1 (9.4-12.3) fL Absolute Nucleated RBC 0.02 H (0-0) K/uL Nucleated RBC % (auto) 0.3 % Sodium 140 (136-145) mmol/L Potassium 3.7 (3.5-5.1) mmol/L Chloride 106 (98-107) mmol/L Carbon Dioxide 26 (21-32) mmol/L Anion Gap 8 (3-11) BUN 30 H (6-23) mg/dl Creatinine 0.89 (0.6-1.2) mg/dl Est Cr Clr Drug Dosing 57.0 ml/min Est GFR ( Amer) 76.6 ml/min Est GFR (Non-Af Amer) 66.1 ml/min BUN/Creatinine Ratio 33.7 H (10-20) Glucose 94 (70-99(Fasting)) mg/dl Calcium 8.8 (8.5-10.1) mg/dl Phosphorus 1.7 L (2.5-4.9) mg/dl Magnesium 2.1 (1.7-2.4) mg/dl Medications Administered Current Inpatient Medications Acetaminophen (Acetaminophen 500 Mg Tab) 500 mg PO Q8H PRN PRN Reason: Pain or Fever Stop: 09/09/22 14:50 Last Admin: 08/11/22 09:50 Dose: 500 mg Hydrocodone Bitart/Acetaminophen (Hydrocodone/Acetamophen 5/325mg Tab) 1 tab PO Q6H PRN PRN Reason: Pain Stop: 08/24/22 14:50 Amlodipine Besylate (A[facility]odipine Besylate 5 Mg Tab) [facility] Stop: 09/10/22 08:59 Last Admin: 08/12/22 07:53 Dose: 5 mg Apixaban (Apixaban 5 Mg Tablet) 5 mg PO BID [facility] Stop: 09/10/22 08:59 Last Admin: 08/12/22 07:52 Dose: 5 mg Atorvastatin Calcium (Atorvastatin 20 Mg Tab) 20 mg PO QAM [facility] Stop: 09/10/22 08:59 Last Admin: 08/12/22 07:53 Dose: 20 mg Baclofen (Baclofen 10 Mg Tab) 10 mg PO Q6H PRN PRN Reason: spasticity of limbs Stop: 09/09/22 19:14 Clopidogrel Bisulfate (Clopidogrel Bisulfate 75 Mg Tab) [facility] Stop: 09/10/22 08:59 Last Admin: 08/12/22 07:53 Dose: 75 mg Diphenhydramine HCl (Diphenhydramine Capsule 25 Mg Cap) 50 mg PO Q6H PRN PRN Reason: Itch or sleep Stop: 09/09/22 14:50 Docusate Sodium (Docusate Sodium 100 Mg Cap) 100 mg PO BID [facility] Stop: 09/09/22 20:59 Last Admin: 08/12/22 07:55 Dose: 100 mg Doxycycline Hyclate (Doxycycline Hyclate 50 Mg Cap) 50 mg PO Q2D@2200 [facility] Stop: 09/09/22 21:59 Last Admin: 08/10/22 21:14 Dose: 50 mg Escitalopram Oxalate (Escitalopram Oxalate 20 Mg Tab) 20 mg PO [facility] Stop: 09/10/22 08:59 Last Admin: 08/12/22 07:53 Dose: 20 mg Ertapenem 1,000 mg/ Syringe 10 mls @ 2 mls/min IV Q24H [facility]; Protocol Stop: 08/20/22 17:59 Last Admin: 08/11/22 17:49 Dose: Not Given Multivitamins/Minerals (Cerovite Adv Formula Tab) [facility] Stop: 09/10/22 08:59 Last Admin: 08/12/22 07:53 Dose: 1 tab Naloxone HCl (Naloxone Hcl 0.4 Mg/1 Ml Vial/Carp) 0.4 mg IV UD PRN PRN Reason: Opiate Reversal-Resp below 10 Stop: 09/09/22 14:50 Teriflunomide - (Patient's Own Med) 1 each PO PM [facility] Stop: 09/09/22 22:59 Last Admin: 08/11/22 23:03 Dose: 1 tabs Ondansetron HCl (Ondansetron Inj 2 Mg/Ml 2 Ml Vial) 4 mg IV Q4H PRN PRN Reason: Nausea And Vomiting Stop: 09/09/22 14:50 Oxybutynin Chloride (Oxybutynin Chloride Xl 5 Mg Tabcr) 15 mg PO [facility] Stop: 09/10/22 08:59 Last Admin: 08/12/22 07:54 Dose: 15 mg Pantoprazole Sodium (Pantoprazole 40 Mg Tab) 40 mg PO [facility] Stop: 09/10/22 08:59 Last Admin: 08/12/22 07:53 Dose: 40 mg Prednisone (Prednisone 10 Mg Tablet) 10 mg PO [facility] Stop: 09/10/22 08:59 Last Admin: 08/12/22 07:53 Dose: 10 mg Sucralfate (Sucralfate 1 Gm/10 Ml Udc) 1 gm PO QID [facility] Stop: 09/09/22 16:59 Last Admin: 08/12/22 07:54 Dose: 1 gm Tizanidine HCl (Pom - *Brand* Tizanidine Hcl 4 Mg Tablet) 4 mg PO QID [facility] Stop: 09/09/22 22:59 Last Admin: 08/12/22 07:55 Dose: 4 mg Vitamin D (Cholecalciferol 1,000 Units 25 Mcg Tab) 1,000 units PO [facility] Stop: 09/10/22 08:59 Last Admin: 08/12/22 07:54 Dose: 1,000 units
[2022-08-12 10:13] LABS: Hematocrit (blood only) 30.9 % (34.1-44.9); Hemoglobin 9.6 g/dl (12.0-16.0); Mean Corpuscular Hemoglobin 29.7 pg (25.0-34.0); Mean Corpuscular Hgb Conc 31.1 g/dL (32.0-36.0); Mean Corpuscular Volume 95.7 fL (80.0-100.0); Mean Platelet Volume 10.1 fL (9.4-12.3); Nucleated RBC # (auto) 0.02 K/uL (0-0); Nucleated RBC % (auto) 0.3 %; Platelet Count 235 K/uL (130-400); RDW Coefficient of Variation 14.4 % (11.5-14.5); RDW Standard Deviation 49.5 fL (36.4-46.3); Red Blood Count 3.23 M/uL (3.93-5.22); White Blood Count 7.47 K/ul (4.8-10.8)
[2022-08-12 10:39] LABS: BUN Creatinine Ratio 33.7 (10-20); Calcium 8.8 mg/dl (8.5-10.1); Est GFR (African American) 76.6 ml/min; Est GFR (Non-African American) 66.1 ml/min; Magnesium 2.1 mg/dl (1.7-2.4); Phosphorus 1.7 mg/dl (2.5-4.9); Potassium 3.7 mmol/L (3.5-5.1)
--- NOTE | 2022-08-12 10:51 | Orthopedic Progress Note ---
Date of Service August 12, 2022 Assessment & Plan (1) Closed right scapular fracture: It is the fracture at the base of her acromion which is likely causing most of her pain. It is nondisplaced. There is no operative treatment for this. She should remain in a sling for 6 weeks. She can be out of the sling when she is at rest. I do want any forward elevation of her right arm. I do want the fracture to displace. Usually after 6 weeks we can start more aggressive range of motion exercises and regained function. She is orthopedically stable for discharge. I will see her in my office in 3 weeks. Full orthopedic discharge instructions were placed in the discharge summary. Subjective Kandy was seen and examined at bedside this morning. Overall she is doing okay. She does not have much pain when she is at rest. She still having soreness when she forward elevates her arm. She had her CT scan yesterday.. Review of Systems All systems reviewed & are unremarkable except as noted in HPI & below. Physical Exam On physical examination of the right shoulder, she is neurovascular intact. Passively I can get her through a gentle range of motion without much pain. She has a lot of tenderness palpation over the scapular border.. Results & Data Results & Data Laboratory Results . Diagnostic Findings CT scan of the right shoulder personally reviewed by myself does show fracture of the scapular spine. There is also a small fracture of the body of the scapula near the inferior screw placement. Overall, the hardware is still in good alignment.. PG Care Time/CCT Total # of Minutes Spent Total Time Spent with Patient: Total time spent is greater than 50% in coordination of care (as documented) at patient's floor/unit and/or counseling patient: Coding Level of Care Code 47773 Subseq Hosp Care Lvl 2 Diagnoses Closed right scapular fracture S42.101A
--- NOTE | 2022-08-12 11:17 | Discharge Summary ---
Date of Service August 12, 2022 Admission HPI Per Admitting Provider HPI per pain management - Dr. Fishman Ms. 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 Intrathecal pump containing Baclofen is controlling the lower extremity spasticity well. She is able to ambulate with a 4-point walker. She has not required the use of oral Baclofen. She denies any fevers, chills, nausea, vomiting, weakness, or recent falls. HPI per hospitalist History of Present IllnessThitammy is a 71-year-old female who has a significant past medical history of MS with spasticity, chronic intrathecal baclofen pump for spasticity, neurogenic bladder doing a chest catheterization, iron deficiency anemia, history of DVT/PE on Eliquis, depression, CAD, history of GI bleed, history of SVT who presented for elective exchange of her intrathecal baclofen pain pump by Dr. Fishman. Patient tolerated the procedure well with minimal blood loss. Daughter spoke with Dr. Fishman postoperatively and did not feel comfortable taking patient home due to acute decrease in mobility. Both daughters were at bedside. They state patient fell last week on 08/05. She underwent a reverse right total shoulder replacement by Dr. Oneil on May 25. She tolerated the procedure well and went to [facility] rehab. Unfortunately secondary to the fall last week she fell on her right shoulder. Since the fall she has had limited mobility which has been worsening of her right shoulder. She typically is wheelchair-bound at baseline but is able to do self transfers to wheelchair. When intrathecal pump is functioning she previously had been able to walk with a four-point walker as well. Her right shoulder has been significantly limiting her. She did present to ER on 08/08 and x-ray was performed. X-ray revealed unremarkable appearance of her right shoulder total joint arthroplasty. She is scheduled follow-up with orthopedics as an outpatient in the next 1 to 2 weeks. Daughters are concerned about ability to take patient home given lack of mobility. Otherwise patient has been doing well. She denies any fever, chills, sweats, lightheadedness, dizziness, chest pain, shortness with, cough, URI symptoms, nausea, vomiting, abdominal pain. Given her MS she does have neurogenic bladder and again self catheterizes overnight. She does get frequent UTIs which typically presents as abdominal pain and urgency. She also states she is following ENT due to a blood bulla on her tympanic membrane. Currently she denies any pain. She is managed on Aubagio and prednisone for her MS. She follows a Dr. Bang at [facility] as well as Dr. Walker with [facility] neurology. She also history of DVT and PE on Eliquis. Lastly she has history of CAD managed medically on atorvastatin and Plavix. Admission Exam Per Admitting Provider Constitutional: WD/WN, vitals as above, NAD, sitting up in bed, pleasant, conversing easily Head: Normocephalic, Atraumatic, Healed Scar to L cheek Eyes: PERRL, conjunctivae normal, anicteric sclerae ENMT: external ear and nose normal, oropharynx normal Neck: trachea midline, no thyromegaly normal visual inspection Respiratory: normal respiratory effort, lungs clear to auscultation, no wheeze, rales, rhonchi. Normal insp/exp effort, no accessory muscle use Cardiovascular: RRR, no murmur, no edema Vessels: no JVD or carotid bruit Chest: normal inspection of chest Abdomen: + abd binder in place, LLQ intrathecal pump placement, normal bowel sounds, soft, nontender, no hepatosplenomegaly Musculoskeletal: no cyanosis or clubbing, arom x 3, significant decrease rom to RUE with abduction/adduction, flex/extension. able to passively flex R shoulder to less than 90 degrees Skin: no rashes, warm and dry normal turgor Neurologic: PERRL, EOMI, accommodation nl, no face palsy, no dysarthria CN's II-XI intact bilaterally and moves all extremities Psychiatric: A+Ox3, euthymic affect Lymphatic: no cervical or axillary lymphadenopathy : deferred Principal Diagnosis status post intrathecal baclofen pump replacement, spasticity, MS s/p recent R shoulder repair, now s/p fall and minimally displaced fractures of the right acromion and right scapular body Discharge Exam Constitutional: WD/WN, NAD, sitting up in chair Head: Normocephalic, Atraumatic, Healed Scar to L cheek Eyes: EOMI, conjunctivae normal, anicteric sclerae ENMT: external ear and nose normal, oropharynx normal Neck: normal visual inspection Respiratory: normal respiratory effort, lungs clear to auscultation, no wheeze, rales, rhonchi. Cardiovascular: RRR, no murmur, no edema Chest: normal inspection of chest Abdomen: + abd binder in place, intrathecal pump placement, normal bowel sounds, soft, nontender Musculoskeletal:arom x 3, significant decrease rom to RUE with abduction/adduction, flex/extension. able to passively flex R shoulder to less than 90 degrees Skin: no rashes, warm and dry normal turgor Neurologic: PERRL, EOMI, no face palsy, answering questions appropriately no dysarthria, moves all extremities Psychiatric: A+Ox3, euthymic affect Discharge Data Allergies Allergy/AdvReac Type Severity Reaction Status Date / Time No Known Allergies Allergy Verified 08/10/22 12:14 Consultations 08/10/22 15:16 Consult Hospitalist Routine 08/10/22 18:50 Consult Infectious Diseases Routine 08/11/22 08:00 Consult Orthopedic Surgery Routine Procedures Performed Operation Date: 08/10/22 13:00 Actual Procedures p Replacement of Intrathecal Baclofen Pump with Possible Revision or Replacement of Intrathecal Catheter(Left) - Hannah Fishman DO Ordered Studies 08/11/22 06:49 CT shoulder RT wo con Routine Hospital Course (1) Presence of intrathecal pump: (2) Multiple sclerosis: (3) Fall: (4) Acute shoulder pain: (5) CAD (coronary artery disease): (6) History of pulmonary embolism: Plan This is a 71-year-old female who has a significant past medical history of MS with spasticity, chronic intrathecal baclofen pump for spasticity, neurogenic bladder doing a chest catheterization, iron deficiency anemia, history of DVT/PE on Eliquis, depression, CAD, history of GI bleed, history of SVT who presented for elective exchange of her intrathecal baclofen pain pump by Dr. Fishman. Presence of intrathecal pump Status post replacement of intrathecal baclofen pump with replacement of intrathecal catheter, POD #2, Dr. Fishman Multiple Sclerosis pt admitted to [facility] plan was for d/c but given ambulatory dysfxn, R shoulder pain family unable to take patient home PT/OT continue aubagio, prednisone CM consulted - dispo to be determined pending PT/OT evals Acute R shoulder pain Fall S/P R reverse total shoulder by Dr. Oneil 05/25/22 pt fell 5 days ago on R shoulder, now with significant lack of ROM and pain to RUE pt mostly wheelchair bound but does transfer to chair by self, previously was walking with 4 point walker given R shoulder pain now significantly limited [facility] orthopedics consulted (Dr. Oneil) Xray show intact replacement but concern for rotator cuff tear vs. frozen shoulder CT shoulder IMPRESSION: 1. Acute minimally displaced fractures of the right acromion and right scapular body, as above. 2. Anatomic alignment of the total right shoulder arthroplasty. Discharge Recommendations: Per Dr. Fishman (pain management) No need for intrathecal baclofen dose adjustment. Patient will maintain current dose without change. It was recommended that she continue with abdominal binder utilization 24 hours/day. Aquacel dressing will remain in place x1 week. Patient will need follow-up in pain clinic at 1 week and 2 weeks status post intrathecal baclofen pump replacement for wound evaluation Orthopedic discharge instructions: Activity: Right arm sling for 6 weeks. May come out of the sling while at rest. May do hand, wrist, and elbow range of motion exercises. No range of motion of the right shoulder for now. Follow-up: Follow-up with Dr. Oneil in clinic in 3 weeks. I will get a simple x-ray to make sure there is been no further displacement of the fracture. Neurogenic bladder hx of UTI continue oxybutnin at home pt self caths at HS Hx of PE/DVT continue eliquis CAD continue statin, plavix HTN continue amlodipine Generalized Weakness PT/OT Iron def anemia pt is receiving iron infusions as OP, last 08/09 Hemoglobin and hematocrit 10.5 and 33.0 as outpatient Iron screen revealed transferrin saturation 9%, ferritin 82, iron low at 24 follow cbc Abnormal Urinalysis ESBL OP revealed ESBL in [id number] on 08/04/22 repeat cathed UA not c/w UTI, urine cultx - negative on admission felt that may be contributing to weakness given hx of UTI empirically started IV ertapenem per admitting team contact precautions ordered ID consult placed -believe this is asymptomatic pyuria, and recommend to stop ertapenem, Abx stopped DVT ppx: Eliquis Dispo: plan to DC to [facility]ULL CODE PCP: Dr. Zoey Schmid Total Time Total Time Spent Total Time Spent (In Minutes): 40 Discharge Plan Discharge Items Patient Disposition: Transfer Inpatient Rehab Fac Reason For Visit: END OF LIFE INTRATHECAL PUMP Discharge Diagnosis: status post intrathecal baclofen pump replacement, spasticity, MS s/p recent R shoulder repair, now s/p fall and minimally displaced fractures of the right acromion and right scapular body Activity: Per Instructions section Non-emergency contact: Surgeon and Pain Management Call non-emergency contact if: you have any medication questions and your symptoms worsen Follow-up/Referrals: Jil Schmid DO [Primary Care Provider] - Diet: Heart Healthy Addtl Attending Provider Instructions: Please see recommendations from your pain management doctor, and orthopedic surgeon below. Follow-up with them as recommended. Addtl Band Scroll Saw Operator Provider Instructions: Per Dr. Fishman (pain management) No need for intrathecal baclofen dose adjustment. Patient will maintain current dose without change. It was recommended that she continue with abdominal binder utilization 24 hours/day. Aquacel dressing will remain in place x1 week. Patient will need follow-up in pain clinic at 1 week and 2 weeks status post intrathecal baclofen pump replacement for wound evaluation Orthopedic discharge instructions: Activity: Right arm sling for 6 weeks. May come out of the sling while at rest. May do hand, wrist, and elbow range of motion exercises. No range of motion of the right shoulder for now. Follow-up: Follow-up with Dr. Oneil in clinic in 3 weeks. I will get a simple x-ray to make sure there is been no further displacement of the fracture. Pending Studies at Discharge: No Stand-Alone Forms: My [facility] [employer] Skilled Items Patient informed of condition?: Yes DNR: No Discharge Level of Care: Acute rehab Communicable Disease: No Discharge Prognosis: Stable Lines: None Urinary Catheter: No Medications and DC Order Prescriptions: Continued prednisone 10 mg tablet 10 mg PO QAM oxybutynin chloride 15 mg tablet extended release 24hr 15 mg PO QAM cholecalciferol (vitamin D3) 1,000 unit capsule 1,000 units PO QAM escitalopram oxalate [Lexapro] 20 mg tablet 20 mg PO QAM Aubagio 14 mg tablet 14 mg PO QPM tizanidine [Zanaflex] 4 mg tablet 4 mg PO QID Rx Instructions: MUST BE NAME BRAND sucralfate [Carafate] 100 mg/mL suspension 10 ml PO QID Hair,Skin and Nails Tablet 1 tab PO QAM atorvastatin [Lipitor] 20 mg tablet 20 mg PO QAM doxycycline hyclate 50 mg capsule 50 mg PO Q OTHER DAY omeprazole 40 mg capsule,delayed release(DR/EC) 40 mg PO QAM Eliquis 5 mg tablet 5 mg PO BID Qty: 60 0RF clopidogrel 75 mg Tablet 75 mg PO QAM Qty: 30 1RF amlodipine [Norvasc] 5 mg Tablet 5 mg PO QAM Qty: 30 1RF Discharge Orders: Discharge Order (Routine); Ordered 08/12/22 Ordered By: J Carlos Johnson Admission Data Admit Date/Time: 08/10/22 18:42 Attending Provider: J Carlos Johnson Admit Provider: Hannah Fishman Primary Care Provider: Jil Schmid Other Providers: Christi Lawrence ; Roslyn Gaspar I. ; Jarvis Zuleta ; Genesis Guerra ; Marah Lara ; Dana Steele ; Grazyna Morales ; Jerome Clemente ; Onur Goyal ; Danis Hale ; Solange Wall ; Fernando Armenta ; Emily Collazo ; Dottie Zayas ; Talat Adrian ; Harriet Mar ; Gisel Villatoro ; James Haider ; Haylie Serrano I. ; J Carlos Johnson ; Valeria Ambrose ; Tianna Smith ; Merna Randhawa ; Roland Bain ; Dieter White ; Viktor Bee ; Arnie Sims ; Erasmo Moore ; Isma Jacob ; Dmitri Morales I. ; Fran Porter II ; Abi Celestin ; Morales Childs ; José Miguel Noble. ; Harriet Sierra. ; [facility]
[2022-08-12] MEDS ORDERED: POT PHOSPHATE MONOBASIC W/ SOD TAB PO SCH (13:00)
== END 2022-08-12 15:41 | DRG 42 ==
LOC: ASU 11:23 → PACUINP 11:23 → 2W 16:21 → SUATTDRO 18:42

== ENCOUNTER 2022-10-21 13:39 | Inpatient (IN) ==
--- NOTE | 2022-10-21 13:54 | Emergency Department Note ---
Impression & Plan Sepsis, Elevated troponin I level, Hypotension, Elevated lactic acid level ED Provider Note NAME: NADEEN ANNE AGE: 71 SEX: F : 1950 ARRIVES VIA: Walk-In INFORMANT: Patient, ED PROVIDER(S): Juan Gilbert MD Patient presents due to concern for weakness. The patient states that she seemed to develop some cute onset of weakness as well as some additional rigors beginning last evening. No reported fevers but she did feel chilled. No chest pains or shortness of breath no cough congestion or sore throat no nausea vomiting or diarrhea. The patient does feel immensely weak. The patient has had some ongoing weakness ever since she had a shoulder replacement that did not allow her to walk for a period of time. The patient also has a known history of MS but does not feel as though this is an MS flare. The patient does have neurogenic bladder and does self cath. The patient does state that she reuses her catheters. Patient denies any abdominal pain vomiting or diarrhea. The patient does ambulate with a walker. The patient did have a brief episode of slurred speech around 10 AM this morning which is since resolved. No falls or trauma. The patient does take Eliquis for known history of PE and does have an IVC filter. Chief Complaint: HPI: ROS: See HPI for pertinent positives and negatives. A total of 10 systems were reviewed and otherwise negative. Past medical history: See below Surgical history: See below Social history: See below Physical Exam: GENERAL: NAD, wearing a mask, non-toxic. EYE EXAM: Normal conjunctiva. PERRL, no anisocoria and EOM's grossly intact w/o pain. NECK: Supple, no nuchal rigidity, no adenopathy, non-tender. No signs of meningismus. FROM of the neck with good chin to chest and neck extension. No stridor. LUNGS: Clear to auscultation. Normal chest wall mechanics. HEART: NSR, no MRG. ABDOMEN: Abdomen soft, non-tender, normo-active bowel sounds, no masses, no rebound or guarding. BACK: No CVA TTP. SKIN: No rashes and no bruising. UPPER EXTREMITIES: Upper extremities are grossly normal. LOWER EXTREMITIES: Weakness bilaterally, mild swelling, no erythema. NEURO EXAM: A&O x3, cranial nerves II-XII grossly intact, normal speech, moves all 4 extremities. Differential diagnoses: Sepsis, UTI, pneumonia, metabolic, electrolyte abnormalities, cardiac sources, intracerebral event, toxicologic, neurologic, as well as other pathologies. Course: Patient was seen and evaluated the bedside. Full history physical exam was performed. EKG interpreted by me Normal sinus rhythm, rate 95 normal SD and QRS normal axis LVH. No ST elevations. No significant change for comparison EKG May 13, 2022 Imaging Studies: See Below Cardiac monitoring: An order was placed for continuous cardiac monitoring. The monitor shows a rate of 82 with sinus rhythm. MDM: Patient was seen due to concern for rigors and hypotension. Blood work was obtained and the patient was ordered IV fluids as well as empiric antibiotics. Patient has grown out Pseudomonas in the past to cefepime as ordered. Due to the patient's slurred speech is likely related to the patient's hypotension as this was brief and is already resolved. No strokelike symptoms on exam currently. Any imaging deferred to inpatient team at this time. This may have occurred secondary to the patient's hypotension. The patient's blood pressure did improve. The patient received 2 L IV fluids. Patient did have improvement in her blood pressure. The patient's blood work showed a white count of 17 with a normal H&H and platelet count. Initial lactate 3.5. This did improve upon repeat 1.2. Initial troponin of 1393. The patient has no chest pains. Patient has no EKG changes. I did speak with on- call cardiology Dr. Morgan did not recommend any heparin at this time but did tr end enzymes. Certainly may be infectious related. This could also be given the patient's lower blood pressure. Patient's procalcitonin is 47. Urinalysis does not show obvious infection but the patient does have positive for leuks and whites. Do believe this to be a possible source of infection. Patient's chest x-ray shows cardiomegaly with prominence of the vasculature. No airspace consolidation or large pleural effusion with negative COVID flu and RSV. I did speak with on-call hospitalist Dr. Serrano. A dose of vancomycin was ordered along with the MRSA swab at that time. MRSA negative. Past Med/Surg History Medical History Anemia CAD (coronary artery disease) Non-obstructive per 06/2021 cardiac cath GERD (gastroesophageal reflux disease) controlled, stable per pt History of blood transfusion History of DVT (deep vein thrombosis) ~6 yrs ago History of GI bleed Upper GIB (2019) felt 2/2 NSAID use History of non-ST elevation myocardial infarction (NSTEMI) 06/2021 (had heart cath, no stents) History of pulmonary embolism ~ 6 yrs ago, IVC filter still in place History of supraventricular tachycardia Hx of gastric ulcer 02/2021 HX: breast cancer Left breast cancer with surgery and chemo/radiation-left arm restriction Hypertension controlled, stable per pt Limb alert care status left arm Multiple sclerosis Follows with Dr. Walker/[facility] Stable Neurogenic bladder SELF CATH 2-3 X'S PER DAY *RECENT HOSPITALIZATION FOR UTI Osteoarthritis of right shoulder Osteoporosis Raynaud disease Surgical History H/O left mastectomy with lymph node removal>LEFT ARM RESTRICTION History of appendectomy History of cardiac cath Cardiac cath (07/06/21; [facility]) > Right dominant coronary system. No evidence of aortic stenosis. Normal left ventricular filling pressures. Nonobstructive disease involving the ostial LAD. No evidence of acute coronary syndrome. Approximately 50% ostial stenosis of the LAD. There was some very mild disease at the ostium of the left circumflex. Recommendations: Medical management. History of colonoscopy History of esophagogastroduodenoscopy (EGD) History of open reduction and internal fixation (ORIF) procedure "left hip" History of tooth extraction Presence of intrathecal pump baclofen pump in place--status post revision/replacement 08/10/2022 S/P IVC filter S/P partial hysterectomy S/p reverse total shoulder arthroplasty right: 05/25/22 LMA#4. No postop issues per anesthesia progress note. Family History Mother Heart disorder Other No family history of adverse response to anesthesia Social History Smoking Status: Former smoker packs per day: 1; Smoking End Date: 1980; Second Hand Exposure: No; Do You Dip or Chew Tobacco: No; Tobacco Cessation Education Requested by Patient: No Hx Alcohol Use: No Hx Substance Use: No Preferred Language: Moldovan Communication Ability: Effective Visual Impairment: No Limitations Hearing Ability: Normal Genetic Engineer Required: No Beliefs That Will Affect Care: None marital status: / Current Living Situation: Alone Current Living Situation Comment: home alone- uses walker but needs a new one current occupational status: retired How many Children do You have: 3 Other Information That Helps Us Care for You: No Feels Safe at Home: Yes Safety Concerns: Feels Safe At This Time Childhood Exposure to Second-Hand Smoke: Yes Assistive Devices: Glasses, Walker and Wheelchair Allergies Allergies Allergy/AdvReac Type Severity Reaction Status Date / Time No Known Allergies Allergy Verified 10/21/22 15:12 Home Meds Home Medications Medication Instructions Recorded Confirmed cholecalciferol (vitamin D3) 25 1,000 units PO QAM 09/18/18 10/21/22 mcg (1,000 unit) capsule escitalopram oxalate 20 mg tablet 20 mg PO QAM 09/18/18 10/21/22 (Lexapro) oxybutynin chloride 15 mg 15 mg PO QAM 09/18/18 10/21/22 tablet,extended release 24 hr prednisone 10 mg tablet 10 mg PO QAM 09/18/18 10/21/22 omeprazole 40 mg capsule,delayed 40 mg PO QAM 07/06/21 10/21/22 release sucralfate 100 mg/mL oral 10 ml PO QID 05/13/22 10/21/22 suspension (Carafate) teriflunomide 14 mg tablet 14 mg PO QPM 05/13/22 10/21/22 (Aubagio) tizanidine 4 mg tablet (Zanaflex) 4 mg PO QID 05/13/22 10/21/22 multivitamin with minerals 1 tab PO QAM 07/28/22 10/21/22 (Hair,Skin and Nails tablet) atorvastatin 20 mg tablet (Lipitor) 20 mg PO QAM 08/10/22 10/21/22 doxycycline hyclate 50 mg capsule 50 mg PO Q OTHER DAY Rosacea 08/10/22 10/21/22 azelaic acid 15 % topical gel 1 applic topical DAILY 10/21/22 10/21/22 Previous Rx's Medication Instructions Recorded amlodipine 5 mg tablet (Norvasc) 5 mg PO QAM #30 tabs 07/09/21 apixaban 5 mg tablet (Eliquis) 5 mg PO BID #60 tabs 07/09/21 clopidogrel 75 mg tablet 75 mg PO QAM #30 tabs 07/09/21 Results & Data (ED) Vital Signs Vital Signs - 24 hr 10/21/22 13:45 10/21/22 14:30 10/21/22 14:30 Temperature 36.3 C L Temperature Source Oral Pulse Rate 84 100 H Pulse Rate [Apical] 101 H Pulse Rhythm Regular Pulse Rhythm [Apical] Regular Pulse Strength [Apical] Normal Respiratory Rate 16 24 24 Respiratory Effort / Characteristics Non-Labored Labored Respiratory Depth Normal Shallow Respiratory Pattern Tachypnea Blood Pressure 69/49 L Blood Pressure [Right Arm] 101/59 L Blood Pressure Mean 55 Blood Pressure Mean [Right Arm] 73 Blood Pressure Position [Right Arm] Lying Pulse Oximetry 98 97 97 Oxygen Delivery Method Room Air Room Air Room Air Sepsis Recent Fever Within 48 Hours No Sepsis New/Unexplained Change in Mental Status No Sepsis Action Taken by Nursing No Action Required 10/21/22 15:04 10/21/22 15:19 10/21/22 16:00 Temperature Temperature Source Pulse Rate Pulse Rate [Apical] 105 H 104 H 105 H Pulse Rhythm Pulse Rhythm [Apical] Regular Regular Regular Pulse Strength [Apical] Normal Normal Normal Respiratory Rate 18 18 22 Respiratory Effort / Characteristics Non-Labored Non-Labored Non-Labored Respiratory Depth Normal Normal Normal Respiratory Pattern Regular Regular Regular Blood Pressure Blood Pressure [Right Arm] 112/57 L 121/67 131/80 Blood Pressure Mean Blood Pressure Mean [Right Arm] 75 85 97 Blood Pressure Position [Right Arm] Lying Lying Lying Pulse Oximetry 96 96 96 Oxygen Delivery Method Room Air Room Air Room Air Sepsis Recent Fever Within 48 Hours Sepsis New/Unexplained Change in Mental Status Sepsis Action Taken by [facility] Medications Current Medication List: was personally reviewed by me Laboratory Data Attestation: I reviewed the patient's lab results. Result diagrams: 10/21/22 14:07 10/21/22 14:07 Lab Results 10/21/22 10/21/22 10/21/22 Range/Units 14:07 14:07 14:07 WBC 17.79 H (4.8-10.8) K/ul RBC 4.17 (3.93-5.22) M/uL Hgb 12.8 (12.0-16.0) g/dl Hct 39.1 (34.1-44.9) % MCV 93.8 (80.0-100.0) fL MCH 30.7 (25.0-34.0) pg MCHC 32.7 (32.0-36.0) g/dL RDW Std Deviation 58.8 H (36.4-46.3) fL RDW Coeff of [place] 17.0 H (11.5-14.5) % Plt Count 244 (130-400) K/uL MPV 10.4 (9.4-12.3) fL Immature Gran % (Auto) 0.4 % Neut % (Auto) 91.0 % Lymph % (Auto) 4.4 % [place] % (Auto) 3.6 % Eos % (Auto) 0.1 % Baso % (Auto) 0.5 % Neut # (Auto) 16.18 H (1.4-6.5) K/uL Lymph # (Auto) 0.79 L (1.2-3.4) K/uL [place] # (Auto) 0.64 (0.24-0.82) K/uL Eos # (Auto) 0.01 (0-0.50) K/uL Baso # (Auto) 0.09 (0-0.2) K/uL Immature Gran # (Auto) 0.08 H (0.00-0.02) K/uL Toxic Vacuolation 1+ Sodium 136 (136-145) mmol/L Potassium 3.9 (3.5-5.1) mmol/L Chloride 99 (98-107) mmol/L Carbon Dioxide 26 (21-32) mmol/L Anion Gap 11 (3-11) BUN 25 H (6-23) mg/dl Creatinine 1.18 (0.6-1.2) mg/dl Est Cr Clr Drug Dosing Not Reportable Est GFR ( Amer) 54.5 ml/min Est GFR (Non-Af Amer) 47.0 ml/min BUN/Creatinine Ratio 21.2 H (10-20) Glucose 103 H (70-99(Fasting)) mg/dl Lactate 3.5 H* (0.4-2.0) mmol/L Calcium 8.9 (8.5-10.1) mg/dl Magnesium 2.1 (1.7-2.4) mg/dl Total Bilirubin 0.8 (0.2-1.0) mg/dl Direct Bilirubin 0.1 (0-0.2) mg/dl AST 60 H (13-39) U/L ALT 43 (7-52) U/L Alkaline Phosphatase 59 (34-104) U/L Troponin I High Sens 1393.0 H* D (0-14) pg/ml Total Protein 6.9 (6.0-8.3) gm/dl Albumin 3.9 (3.4-5.0) gm/dl Procalcitonin (0-0.5) ng/ml Urine Color Urine Appearance (Clear) Urine pH (4.5-7.5) Ur Specific [place] (1.000-1.030) Urine Protein (Negative) Urine Glucose (UA) (Negative) Urine Ketones (Negative) Urine Blood (Negative) Urine Nitrite (Negative) Urine Bilirubin (Negative) Urine Urobilinogen (Negative) Ur Leukocyte Esterase (Negative) Urine WBC (Auto) (0-5) /hpf Urine RBC (Auto) (0-4) /hpf U Hyaline Cast (Auto) (0-5) /lpf U Epithel Cells (Auto) (0-5) /lpf Urine Bacteria (Auto) (Negative) Nasal Screen MRSA (PCR) (Negative) SARS-CoV-2 (PCR) (Negative) Influenza Type A (PCR) (Neg) Influenza Type B (PCR) (Neg) RSV (RT-PCR) (Neg) 10/21/22 10/21/22 10/21/22 Range/Units 14:07 14:19 15:58 WBC (4.8-10.8) K/ul RBC (3.93-5.22) M/uL Hgb (12.0-16.0) g/dl Hct (34.1-44.9) % MCV (80.0-100.0) fL MCH (25.0-34.0) pg MCHC (32.0-36.0) g/dL RDW Std Deviation (36.4-46.3) fL RDW Coeff of [place]anie (11.5-14.5) % Plt Count (130-400) K/uL MPV (9.4-12.3) fL Immature Gran % (Auto) % Neut % (Auto) % Lymph % (Auto) % [place] % (Auto) % Eos % (Auto) % Baso % (Auto) % Neut # (Auto) (1.4-6.5) K/uL Lymph # (Auto) (1.2-3.4) K/uL [place] # (Auto) (0.24-0.82) K/uL Eos # (Auto) (0-0.50) K/uL Baso # (Auto) (0-0.2) K/uL Immature Gran # (Auto) (0.00-0.02) K/uL Toxic Vacuolation Sodium (136-145) mmol/L Potassium (3.5-5.1) mmol/L Chloride (98-107) mmol/L Carbon Dioxide (21-32) mmol/L Anion Gap (3-11) BUN (6-23) mg/dl Creatinine (0.6-1.2) mg/dl Est Cr Clr Drug Dosing Est GFR ( Amer) ml/min Est GFR (Non-Af Amer) ml/min BUN/Creatinine Ratio (10-20) Glucose (70-99(Fasting)) mg/dl Lactate (0.4-2.0) mmol/L Calcium (8.5-10.1) mg/dl Magnesium (1.7-2.4) mg/dl Total Bilirubin (0.2-1.0) mg/dl Direct Bilirubin (0-0.2) mg/dl AST (13-39) U/L ALT (7-52) U/L Alkaline Phosphatase (34-104) U/L Troponin I High Sens (0-14) pg/ml Total Protein (6.0-8.3) gm/dl Albumin (3.4-5.0) gm/dl Procalcitonin 47.80 H (0-0.5) ng/ml Urine Color Yellow Urine Appearance Clear (Clear) Urine pH 6.0 (4.5-7.5) Ur Specific [place] 1.011 (1.000-1.030) Urine Protein 1+ H (Negative) Urine Glucose (UA) Negative (Negative) Urine Ketones Trace H (Negative) Urine Blood 3+ H (Negative) Urine Nitrite Negative (Negative) Urine Bilirubin Negative (Negative) Urine Urobilinogen Negative (Negative) Ur Leukocyte Esterase 2+ H (Negative) Urine WBC (Auto) 10-30 H (0-5) /hpf Urine RBC (Auto) >30 H (0-4) /hpf U Hyaline Cast (Auto) 1-5 (0-5) /lpf U Epithel Cells (Auto) 5-10 H (0-5) /lpf Urine Bacteria (Auto) Negative (Negative) Nasal Screen MRSA (PCR) (Negative) SARS-CoV-2 (PCR) NEGATIVE (Negative) Influenza Type A (PCR) Negative (Neg) Influenza Type B (PCR) Negative (Neg) RSV (RT-PCR) Negative (Neg) 10/21/22 Range/Units 15:59 WBC (4.8-10.8) K/ul RBC (3.93-5.22) M/uL Hgb (12.0-16.0) g/dl Hct (34.1-44.9) % MCV (80.0-100.0) fL MCH (25.0-34.0) pg MCHC (32.0-36.0) g/dL RDW Std Deviation (36.4-46.3) fL RDW Coeff of [place]iffanie (11.5-14.5) % Plt Count (130-400) K/uL MPV (9.4-12.3) fL Immature Gran % (Auto) % Neut % (Auto) % Lymph % (Auto) % [place] % (Auto) % Eos % (Auto) % Baso % (Auto) % Neut # (Auto) (1.4-6.5) K/uL Lymph # (Auto) (1.2-3.4) K/uL [place] # (Auto) (0.24-0.82) K/uL Eos # (Auto) (0-0.50) K/uL Baso # (Auto) (0-0.2) K/uL Immature Gran # (Auto) (0.00-0.02) K/uL Toxic Vacuolation Sodium (136-145) mmol/L Potassium (3.5-5.1) mmol/L Chloride (98-107) mmol/L Carbon Dioxide (21-32) mmol/L Anion Gap (3-11) BUN (6-23) mg/dl Creatinine (0.6-1.2) mg/dl Est Cr Clr Drug Dosing Est GFR ( Amer) ml/min Est GFR (Non-Af Amer) ml/min BUN/Creatinine Ratio (10-20) Glucose (70-99(Fasting)) mg/dl Lactate (0.4-2.0) mmol/L Calcium (8.5-10.1) mg/dl Magnesium (1.7-2.4) mg/dl Total Bilirubin (0.2-1.0) mg/dl Direct Bilirubin (0-0.2) mg/dl AST (13-39) U/L ALT (7-52) U/L Alkaline Phosphatase (34-104) U/L Troponin I High Sens (0-14) pg/ml Total Protein (6.0-8.3) gm/dl Albumin (3.4-5.0) gm/dl Procalcitonin (0-0.5) ng/ml Urine Color Urine Appearance (Clear) Urine pH (4.5-7.5) Ur Specific [place] (1.000-1.030) Urine Protein (Negative) Urine Glucose (UA) (Negative) Urine Ketones (Negative) Urine Blood (Negative) Urine Nitrite (Negative) Urine Bilirubin (Negative) Urine Urobilinogen (Negative) Ur Leukocyte Esterase (Negative) Urine WBC (Auto) (0-5) /hpf Urine RBC (Auto) (0-4) /hpf U Hyaline Cast (Auto) (0-5) /lpf U Epithel Cells (Auto) (0-5) /lpf Urine Bacteria (Auto) (Negative) Nasal Screen MRSA (PCR) Negative (Negative) SARS-CoV-2 (PCR) (Negative) Influenza Type A (PCR) (Neg) Influenza Type B (PCR) (Neg) RSV (RT-PCR) (Neg) Administered Medications Discontinued Medications Sodium Chloride (Nss 1000ml) 1,000 mls @ 999 mls/hr IV .Q1H1M MICHELLE Stop: 10/21/22 15:15 Last Infusion: 10/21/22 16:02 Dose: 0 mls/hr Documented By: Admin: 10/21/22 14:26 Dose: 999 mls/hr Documented By: RSZoey Cefepime HCl (Maxipime) 2,000 mg in 20 mls @ 5 mls/min IV NOW STA; Protocol Stop: 10/21/22 14:09 Last Admin: 10/21/22 14:26 Dose: 5 mls/min Documented By: BRITANY Sodium Chloride (Nss 1000ml) 1,000 mls @ 999 mls/hr IV .Q1H1M ONE Stop: 10/21/22 15:51 Last Infusion: 10/21/22 17:23 Dose: 0 mls/hr Documented By: Admin: 10/21/22 16:02 Dose: 999 mls/hr Documented By: BRITANY Vancomycin HCl 1,750 mg/ (Sodium Chloride) 535 mls @ 200 mls/hr IV NOW ONE Stop: 10/21/22 18:23 Last Admin: 10/21/22 18:36 Dose: 200 mls/hr Documented By: HOMERO Imaging Data Radiologist's Impression: Chest X-Ray 10/21/22 14:04 SINGLE VIEW CHEST CLINICAL HISTORY: Sepsis. FINDINGS: An AP, portable, upright chest radiograph is compared to study dated 08/20/2021. Correlation is made with chest CT dated 06/20/2017. The examination is degraded by portable technique and patient rotation. A hiatal hernia is noted. The heart is enlarged noting atherosclerotic calcification of the thoracic aorta. There is prominence of the pulmonary vasculature. Scarring/atelectasis is seen at the lung bases. No airspace consolidation or large pleural effusion is identified. No pneumothorax is seen. The skeletal structures are osteopenic. The bony thorax is grossly intact. A right shoulder arthroplasty is in place. Arthritic change is noted in the left shoulder. Surgical clips project over the left axilla. IMPRESSION: 1. Cardiomegaly with prominence of the pulmonary vasculature. Correlate clinically for evidence of fluid overload/congestive failure. 2. No airspace consolidation or large pleural effusion is identified. ACT 112: Negative or not required by law. Electronically signed by: Germán Villa M.D. 10/21/2022 3:12 PM Discharge Plan Visit Data Chief Complaint: Illness Stated Complaint: FEVER, CHILLS, WEAKNESS ED Provider: Juan Gilbert Discharge Problem: Sepsis, Elevated troponin I level, Hypotension, Elevated lactic acid level Patient Disposition: Admitted As Inpatient Discharge Instructions Interventions: ED Discharge Assessment Last Done: 10/21/22 17:51
[2022-10-21] MEDS ORDERED: CEFEPIME 2,000 MG/20 ML VIAL IV STA (14:06)
[2022-10-21] MEDS ORDERED: SODIUM CHLORIDE 0.9% 1000ML 1,000 ML IV SCH (14:15)
[2022-10-21 14:20] LABS: Hematocrit (blood only) 39.1 % (34.1-44.9); Hemoglobin 12.8 g/dl (12.0-16.0); Mean Corpuscular Hemoglobin 30.7 pg (25.0-34.0); Mean Corpuscular Hgb Conc 32.7 g/dL (32.0-36.0); Mean Corpuscular Volume 93.8 fL (80.0-100.0); Mean Platelet Volume 10.4 fL (9.4-12.3); Platelet Count 244 K/uL (130-400); RDW Standard Deviation 58.8 fL (36.4-46.3); Red Blood Count 4.17 M/uL (3.93-5.22); White Blood Count 17.79 K/ul (4.8-10.8)
[2022-10-21 14:39] LABS: Basophils # (auto) 0.09 K/uL (0-0.2); Basophils % (auto) 0.5 %; Eosinophils # (auto) 0.01 K/uL (0-0.50); Eosinophils % (auto) 0.1 %; Immature Granulocytes # (auto) 0.08 K/uL (0.00-0.02); Immature Granulocytes % (auto) 0.4 %; Lymphocytes # (auto) 0.79 K/uL (1.2-3.4); Lymphocytes % (auto) 4.4 %; Monocytes # (auto) 0.64 K/uL (0.24-0.82); Monocytes % (auto) 3.6 %; Neutrophils # (auto) 16.18 K/uL (1.4-6.5); Toxic Vacuolation 1+
[2022-10-21 14:40] LABS: Alanine Aminotransferase 43 U/L (7-52); Albumin Level 3.9 gm/dl (3.4-5.0); Alkaline Phosphatase 59 U/L (34-104); Anion Gap 11 (3-11); Aspartate Aminotransferase 60 U/L (13-39); BUN Creatinine Ratio 21.2 (10-20); Bilirubin Direct 0.1 mg/dl (0-0.2); Bilirubin,Total 0.8 mg/dl (0.2-1.0); Blood Urea Nitrogen 25 mg/dl (6-23); Calcium 8.9 mg/dl (8.5-10.1); Carbon Dioxide 26 mmol/L (21-32); Chloride 99 mmol/L (98-107); Est GFR (African American) 54.5 ml/min; Glucose 103 mg/dl (70-99(Fasting)); Magnesium 2.1 mg/dl (1.7-2.4); Potassium 3.9 mmol/L (3.5-5.1); Sodium 136 mmol/L (136-145); Total Protein 6.9 gm/dl (6.0-8.3)
[2022-10-21] MEDS ORDERED: SODIUM CHLORIDE 0.9% 1000ML 1,000 ML IV ONE (14:51)
--- NOTE | 2022-10-21 15:15 | XRay Report ---
SINGLE VIEW CHEST CLINICAL HISTORY: Sepsis. FINDINGS: An AP, portable, upright chest radiograph is compared to study dated 08/20/2021. Correlation is made with chest CT dated 06/20/2017. The examination is degraded by portable technique and patient rotation. A hiatal hernia is noted. The heart is enlarged noting atherosclerotic calcification of th e thoracic aorta. There is prominence of the pulmonary vasculature. Scarring/atelectasis is seen at t he lung bases. No airspace consolidation or large pleural effusion is identified. No pneumothorax is seen. The skeletal structures are osteopenic. The bony thorax is grossly intact. A right shoulder art hroplasty is in place. Arthritic change is noted in the left shoulder. Surgical clips project over th e left axilla. IMPRESSION: 1. Cardiomegaly with prominence of the pulmonary vasculature. Correlate clinically for evidence of fl uid overload/congestive failure. 2. No airspace consolidation or large pleural effusion is identified. ACT 112: Negative or not required by law. Electronically signed by: Germán Villa M.D. 10/21/2022 3:12 PM
[2022-10-21 15:17] LABS: Influenza A virus by PCR Negative (Neg); Influenza B virus by PCR Negative (Neg); RSV by PCR Negative (Neg); SARS CoV2 RNA(COVID-19) Ceph NEGATIVE (Negative)
[2022-10-21] MEDS ORDERED: VANCOMYCIN CONSULT ACTIVE PRN (15:43)
[2022-10-21] MEDS ORDERED: VANCOMYCIN HCL 1,750 MG in SODIUM CHLORIDE 0.9% 500 ML IV ONE (15:43)
[2022-10-21 16:13] LABS: Appearance Urine Clear (Clear); Bacteria Urine Automated Negative (Negative); Bilirubin Urine Negative (Negative); Blood Urine 3+ (Negative); Color Urine Yellow; Glucose Urine UA Negative (Negative); Ketones Urine Trace (Negative); Leukocyte Esterase Urine 2+ (Negative); Nitrite Urine Negative (Negative); Protein Urine 1+ (Negative); RBC Urine Automated >30 /hpf (0-4); Specific Gravity Urine 1.011 (1.000-1.030); Urobilinogen Urine Negative (Negative)
--- NOTE | 2022-10-21 16:35 | History & Physical Report ---
Date of Service October 21, 2022 Assessment & Plan (1) Sepsis: Plan: Patient has neurogenic bladder and self catheterizes. Had chills, rigors and generalized weakness at home Met SIRS criteria on presentation with leukocytosis, tachycardia. UA has 2+ leukocyte esterase, 10-30 WBC Lactate is 3.5 Has sepsis. Possible sources urinary tract. Based on history of Pseudomonas UTI in the past, got cefepime in the ER. Also vancomycin ordered by ER physician. Will get first dose in the ER as well. Complete 30cc/kg bolus IVF ordered by ER physician Follow up urine cultures and blood cultures Continue broad spectrum antibiotics Stop vanc if MRSA is negative Repeat lactate after IVF bolus Based on my exam, CVA is unlikely. However, due to report of slurred speech and family's concern, Will get CT head. Slurred speech likely due to hypotension at the time (2) Elevated troponin: Plan: Trop elevated at 1393 ER physician reported he had reviewed with Daycare Director Dr Morgan who did not recommend any heparin/intervention at this time Denied any chest pain or angina equivalent Will trend trops for now Tele monitor (3) Multiple sclerosis: (4) Neurogenic bladder: Plan: Continue home oxybutynin, zanaflex Has intrathecal baclofen pump Continue home prednisone Intermittent catheterization for now as needed (5) History of pulmonary embolism: (6) History of DVT (deep vein thrombosis): Plan: Continue home eliquis (7) CAD (coronary artery disease): Plan: Continue atorvastatin, plavix (8) Hypertension: Plan: Hold home amlodipine for now Monitor BP (9) GERD (gastroesophageal reflux disease): Plan: Continue home omeprazole and carafate Reports she had hematochezia in the past and has colonoscopy scheduled for 11/04/22. DVT ppx - eliquis Full code History of Present Illness Chief Complaint: Generalized weakness, chills and rigors Primary Care Provider: Jil Schmid, 71-year-old woman with history of MS with spasticity, chronic intrathecal baclofen pump, neurogenic bladder and self catheterizes, iron deficiency anemia, DVT/PE on Eliquis, CAD, GI bleed, SVT who presented with generalized weakness, chills and rigors that started yesterday evening. Patient reported that she started having rigors yesterday evening associated with chills. Reported that she thought she had a fever but the measurement at home was 97. This was associated with generalized weakness which worsened this morning. According to daughter and son-in-law who was at bedside, she was noted to be very weak this morning with slurred speech with concern for possible stroke. Patient also reported 1 loose bowel movements prior to being brought to the ER. Patient denies any chest pain, cough, shortness of breath Denies any focal weakness. Reports weakness is generalized. Patient does have weakness in the lower extremities, ambulatory dysfunction from her MS as well as right shoulder surgery some months ago for which she is still recovering from. Patient denies any melena, hematochezia, blood in urine. Denied any abdominal pain, flank pain. On presentation to the ER, was noted to be hypotensive with blood pressure of 64/49, heart rate was 84 but increased to 105, Initial work-up was notable for leukocytosis of 17,000 and lactate of 3.5. Patient was started on oral IV fluid bolus. Currently receiving IV fluid bolus of 30 cc/kg. Patient reports feeling better right now compared to presentation. Blood pressures currently improved to 113/68, heart rate of 104 Allergies Allergy/AdvReac Type Severity Reaction Status Date / Time No Known Allergies Allergy Verified 10/21/22 15:12 Home Medications Medication Instructions Recorded Confirmed Type cholecalciferol (vitamin D3) 25 1,000 units PO QAM 09/18/18 10/21/22 History mcg (1,000 unit) capsule escitalopram oxalate 20 mg tablet 20 mg PO QAM 09/18/18 10/21/22 History (Lexapro) oxybutynin chloride 15 mg 15 mg PO QAM 09/18/18 10/21/22 History tablet,extended release 24 hr prednisone 10 mg tablet 10 mg PO QAM 09/18/18 10/21/22 History omeprazole 40 mg capsule,delayed 40 mg PO QAM 07/06/21 10/21/22 History release amlodipine 5 mg tablet (Norvasc) 5 mg PO QAM #30 tabs 07/09/21 10/21/22 Rx apixaban 5 mg tablet (Eliquis) 5 mg PO BID #60 tabs 07/09/21 10/21/22 Rx clopidogrel 75 mg tablet 75 mg PO QAM #30 tabs 07/09/21 10/21/22 Rx sucralfate 100 mg/mL oral 10 ml PO QID 05/13/22 10/21/22 History suspension (Carafate) teriflunomide 14 mg tablet 14 mg PO QPM 05/13/22 10/21/22 History (Aubagio) tizanidine 4 mg tablet (Zanaflex) 4 mg PO QID 05/13/22 10/21/22 History multivitamin with minerals 1 tab PO QAM 07/28/22 10/21/22 History (Hair,Skin and Nails tablet) atorvastatin 20 mg tablet (Lipitor) 20 mg PO QAM 08/10/22 10/21/22 History doxycycline hyclate 50 mg capsule 50 mg PO Q OTHER DAY Rosacea 08/10/22 10/21/22 History azelaic acid 15 % topical gel 1 applic topical DAILY 10/21/22 10/21/22 History Past Med/Surg History Medical History (Updated 10/21/22 @ 17:35 by Haylie Serrano MD) Anemia CAD (coronary artery disease) Non-obstructive per 06/2021 cardiac cath GERD (gastroesophageal reflux disease) controlled, stable per pt History of blood transfusion History of DVT (deep vein thrombosis) ~6 yrs ago History of GI bleed Upper GIB (2019) felt 2/2 NSAID use History of non-ST elevation myocardial infarction (NSTEMI) 06/2021 (had heart cath, no stents) History of pulmonary embolism ~ 6 yrs ago, IVC filter still in place History of supraventricular tachycardia Hx of gastric ulcer 02/2021 HX: breast cancer Left breast cancer with surgery and chemo/radiation-left arm restriction Hypertension controlled, stable per pt Limb alert care status left arm Multiple sclerosis Follows with Dr. Walker/[facility] Stable Neurogenic bladder SELF CATH 2-3 X'S PER DAY *RECENT HOSPITALIZATION FOR UTI Osteoarthritis of right shoulder Osteoporosis Raynaud disease Surgical History H/O left mastectomy with lymph node removal>LEFT ARM RESTRICTION History of appendectomy History of cardiac cath Cardiac cath (07/06/21; [facility]) > Right dominant coronary system. No evidence of aortic stenosis. Normal left ventricular filling pressures. Nonobstructive disease involving the ostial LAD. No evidence of acute coronary syndrome. Approximately 50% ostial stenosis of the LAD. There was some very mild disease at the ostium of the left circumflex. Recommendations: Medical management. History of colonoscopy History of esophagogastroduodenoscopy (EGD) History of open reduction and internal fixation (ORIF) procedure "left hip" History of tooth extraction Presence of intrathecal pump baclofen pump in place--status post revision/replacement 08/10/2022 S/P IVC filter S/P partial hysterectomy S/p reverse total shoulder arthroplasty right: 05/25/22 LMA#4. No postop issues per anesthesia progress note. Family History Mother Heart disorder Other No family history of adverse response to anesthesia Social History Smoking Status: Never smoker packs per day: 1; Second Hand Exposure: No; Hx Alcohol Use: No Hx Substance Use: No Preferred Language: Finnish Communication Ability: Effective Visual Impairment: No Limitations Hearing Ability: Normal Sloop Captain Required: No Beliefs That Will Affect Care: None marital status: / Current Living Situation: Alone Current Living Situation Comment: home alone- uses walker but needs a new one current occupational status: retired How many Children do You have: 3 Feels Safe at Home: Yes Childhood Exposure to Second-Hand Smoke: Yes Assistive Devices: Slide Board and Wheelchair Review of Systems Constitutional: + chills, + body aches and + weakness; no fever Eyes: no photophobia and no worsening vision Ear, Nose, Mouth, Throat: + hearing loss (Chronic); no nasal congestion and no epistaxis Respiratory: no cough, no chest congestion and no dyspnea Cardiovascular: no chest pain, no dyspnea and no lightheadedness Gastrointestinal: + diarrhea/loose stools; no abdominal pain, no nausea and no vomiting Genitourinary: + difficulty urinating (Chronic) Self catheterizes Musculoskeletal: + muscle weakness Neurologic: + generalized weakness; no syncope and no headache(s) Psychiatric: no depression and no anxiety Physical Exam Constitutional: no acute distress Dry oral mucosa Eyes: PERRL, conjunctivae normal, anicteric sclerae ENMT: Mouth: + dry oral mucous membranes Respiratory: normal respiratory effort, lungs clear to auscultation Cardiovascular: Rate/Rhythm: regular rhythm and + tachycardic S1-S2 Gastrointestinal (Abdomen): normal bowel sounds, soft, nontender, no hepatosplenomegaly Musculoskeletal: Trace pedal edema which patient reports is chronic Neurologic: PERRL, EOMI, accommodation nl, no face palsy, no dysarthria Power is 3/5 in lower extremities bilaterally and normal in upper extremities Psychiatric: A+Ox3, euthymic affect Genitourinary: No CVA tenderness Results & Data Results & Data ([facility]) Vital Signs (Past 12 Hours) Vital Signs Temp Pulse Pulse Resp BP BP Pulse Ox 10/21/22 15:19 104 H 18 121/67 96 10/21/22 15:04 105 H 18 112/57 L 96 10/21/22 14:30 100 H 24 97 10/21/22 14:30 101 H 24 101/59 L 97 10/21/22 13:45 36.3 C L 84 16 69/49 L 98 O2 Del Method 10/21/22 15:19 Room Air 10/21/22 15:04 Room Air 10/21/22 14:30 Room Air 10/21/22 14:30 Room Air 10/21/22 13:45 Room Air Laboratory Results Abnormal lab results 10/21/22 10/21/22 10/21/22 Range/Units 14:07 14:07 14:07 WBC 17.79 H (4.8-10.8) K/ul RDW Std Deviation 58.8 H (36.4-46.3) fL RDW Coeff of Tiffanie 17.0 H (11.5-14.5) % Neut # (Auto) 16.18 H (1.4-6.5) K/uL Lymph # (Auto) 0.79 L (1.2-3.4) K/uL Immature Gran # (Auto) 0.08 H (0.00-0.02) K/uL BUN 25 H (6-23) mg/dl BUN/Creatinine Ratio 21.2 H (10-20) Glucose 103 H (70-99(Fasting)) mg/dl Lactate 3.5 H* (0.4-2.0) mmol/L AST 60 H (13-39) U/L Troponin I High Sens 1393.0 H* D (0-14) pg/ml Procalcitonin (0-0.5) ng/ml Urine Protein (Negative) Urine Ketones (Negative) Urine Blood (Negative) Ur Leukocyte Esterase (Negative) Urine WBC (Auto) (0-5) /hpf Urine RBC (Auto) (0-4) /hpf U Epithel Cells (Auto) (0-5) /lpf 10/21/22 10/21/22 Range/Units 14:07 15:58 WBC (4.8-10.8) K/ul RDW Std Deviation (36.4-46.3) fL RDW Coeff of Tiffanie (11.5-14.5) % Neut # (Auto) (1.4-6.5) K/uL Lymph # (Auto) (1.2-3.4) K/uL Immature Gran # (Auto) (0.00-0.02) K/uL BUN (6-23) mg/dl BUN/Creatinine Ratio (10-20) Glucose (70-99(Fasting)) mg/dl Lactate (0.4-2.0) mmol/L AST (13-39) U/L Troponin I High Sens (0-14) pg/ml Procalcitonin 47.80 H (0-0.5) ng/ml Urine Protein 1+ H (Negative) Urine Ketones Trace H (Negative) Urine Blood 3+ H (Negative) Ur Leukocyte Esterase 2+ H (Negative) Urine WBC (Auto) 10-30 H (0-5) /hpf Urine RBC (Auto) >30 H (0-4) /hpf U Epithel Cells (Auto) 5-10 H (0-5) /lpf Diagnostic Findings SINGLE VIEW CHEST CLINICAL HISTORY: Sepsis. FINDINGS: An AP, portable, upright chest radiograph is compared to study dated 08/20/2021. Correlation is made with chest CT dated 06/20/2017. The examination is degraded by portable technique and patient rotation. A hiatal hernia is noted. The heart is enlarged noting atherosclerotic calcification of the thoracic aorta. There is prominence of the pulmonary vasculature. Scarring/atelectasis is seen at the lung bases. No airspace consolidation or large pleural effusion is identified. No pneumothorax is seen. The skeletal structures are osteopenic. The bony thorax is grossly intact. A right shoulder arthroplasty is in place. Arthritic change is noted in the left shoulder. Surgical clips project over the left axilla. IMPRESSION: 1. Cardiomegaly with prominence of the pulmonary vasculature. Correlate clinically for evidence of fluid overload/congestive failure. 2. No airspace consolidation or large pleural effusion is identified.
--- NOTE | 2022-10-21 19:53 | CT Scan Report ---
CT SCAN OF THE BRAIN WITHOUT IV CONTRAST CLINICAL HISTORY: Change in mental status COMPARISON STUDY: CT of the brain dated 05/13/2022. TECHNIQUE: Unenhanced axial CT scan of the brain is performed from the vertex to the skull base. A do se lowering technique was utilized adhering to the principles of ALARA. CT DOSE: 691.05 mGy.cm FINDINGS: Brain parenchyma: There is age-related involutional change noting moderate patchy subcortical and per iventricular microangiopathic disease. There is no hemorrhage, mass effect, or evidence of acute terr itorial ischemia by CT criteria. Pulido-white matter differentiation is preserved. No extra-axial fluid collection is seen. Ventricles, sulci, cisterns: Prominent secondary to involutional change. Intracranial vasculature: There is atherosclerotic calcification of the cavernous carotid artery. Calvarium: Unremarkable. Sinuses and mastoids: Moderate mucosal thickening is noted within the sphenoid sinuses. There is mild mucosal thickening within the frontal and ethmoid sinuses. The mastoid air cells are well pneumatize d. Orbits: The bony orbits are grossly intact. There are bilateral ocular lens implants. IMPRESSION: There is no hemorrhage, mass effect, or evidence of acute territorial ischemia by CT jimmy linder. ACT 112: Negative or not required by law. Electronically signed by: Germán Villa M.D. 10/21/2022 7:52 PM
[2022-10-21] MEDS: APIXABAN 5 MG TABLET PO SCH (21:02)
[2022-10-21] MEDS: CEFEPIME 1,000 MG in SYRINGE 0 ML IV SCH (21:02)
[2022-10-21] MEDS: tiZANidine HCL 4 MG TABLET PO SCH ×2 (21:02→23:15)
[2022-10-21] MEDS: SUCRALFATE 1 GM/10 ML UDC PO SCH (23:15)
[2022-10-21] MEDS ORDERED: SODIUM CHLORIDE 0.9% 500 ML IV SCH (23:30)
[2022-10-22 06:39] LABS: Hematocrit (blood only) 33.7 % (34.1-44.9); Hemoglobin 10.8 g/dl (12.0-16.0); Mean Corpuscular Hemoglobin 30.2 pg (25.0-34.0); Mean Corpuscular Volume 94.1 fL (80.0-100.0); Platelet Count 207 K/uL (130-400); RDW Standard Deviation 59.1 fL (36.4-46.3); Red Blood Count 3.58 M/uL (3.93-5.22); White Blood Count 12.31 K/ul (4.8-10.8)
[2022-10-22 07:11] LABS: Total Protein 5.3 gm/dl (6.0-8.3)
[2022-10-22 07:12] LABS: Albumin Globulin Ratio 1.2 (0.9-2); Albumin Level 2.9 gm/dl (3.4-5.0); BUN Creatinine Ratio 26.9 (10-20); Bilirubin,Total 0.6 mg/dl (0.2-1.0); Calcium 7.8 mg/dl (8.5-10.1); Creatinine Clr Calc Pharmacy 64.7 ml/min; Est GFR (African American) 89.9 ml/min; Est GFR (Non-African American) 77.6 ml/min; Globulin 2.4 gm/dl (2.5-4.0); Potassium 3.7 mmol/L (3.5-5.1)
[2022-10-22] MEDS ORDERED: tiZANidine HCL 4 MG TABLET PO PRN (07:16)
[2022-10-22] MEDS: SUCRALFATE 1 GM/10 ML UDC PO SCH ×4 (07:50→20:52)
[2022-10-22] MEDS: CHOLECALCIFEROL 1,000 UNITS 25 MCG TAB PO SCH (08:25)
[2022-10-22] MEDS: APIXABAN 5 MG TABLET PO SCH ×2 (08:25→20:36)
[2022-10-22] MEDS: ESCITALOPRAM OXALATE 20 MG TAB PO SCH (08:25)
[2022-10-22] MEDS: ATORVASTATIN 20 MG TAB PO SCH (08:25)
[2022-10-22] MEDS: OXYBUTYNIN CHLORIDE XL 5 MG TABCR PO SCH (08:25)
[2022-10-22] MEDS: CLOPIDOGREL BISULFATE 75 MG TAB PO SCH (08:25)
[2022-10-22] MEDS: PANTOprazole 40 MG TAB PO SCH (08:25)
[2022-10-22] MEDS: CEFEPIME 1,000 MG in SYRINGE 0 ML IV SCH ×2 (09:45→22:13)
[2022-10-22] MEDS: predniSONE 10 MG TABLET PO SCH (09:45)
--- NOTE | 2022-10-22 10:04 | Electrocardiogram Report ---
Test Reason : Blood Pressure : / mmHG Vent. Rate : 095 BPM Atrial Rate : 095 BPM P-R Int : 148 ms QRS Dur : 066 ms QT Int : 382 ms P-R-T Axes : 064 051 044 degrees QTc Int : 480 ms Poor data quality, interpretation may be adversely affected Normal sinus rhythm Minimal voltage criteria for LVH, may be normal variant Possible Old Anteroseptal infarct (cited on or before 21-OCT-2022) Abnormal ECG When compared with ECG of 13-MAY-2022 17:09, No significant change was found Confirmed by Navneet Sen ([id number]) on 10/22/2022 10:04:02 AM Referred By: REFERRED SELF Confirmed By:Navneet Sen
--- NOTE | 2022-10-22 10:06 | Hospitalist Progress Note ---
Date of Service October 22, 2022 Assessment & Plan (1) Sepsis: Plan: Patient has neurogenic bladder and self catheterizes. Had chills, rigors and generalized weakness at home Met SIRS criteria on presentation with leukocytosis, tachycardia. UA has 2+ leukocyte esterase, 10-30 WBC Lactate was 3.5 Has sepsis. Possible sources urinary tract. Got IVF bolus Elevated lactate normalized WBC improving Follow up urine cultures and blood cultures Continue broad spectrum antibiotics MRSA is negative Continue cefepime (2) Elevated troponin: Plan: Trop elevated at 1393 ER physician reported he had reviewed with Classroom Technology Technician Dr Morgan who did not recommend any heparin/intervention at this time Denied any chest pain or angina equivalent Trop trended down Get TTE Tele monitor- some bursts of SVT (3) Multiple sclerosis: (4) Neurogenic bladder: Plan: Continue home oxybutynin Has intrathecal baclofen pump Continue home prednisone Intermittent catheterization for now as needed Zanaflex changed to TID prn today after report of hypotension with night dose yesterday from Modeling And Simulation Analyst Will reassess later Patient to bring in home Aubagio (5) History of pulmonary embolism: (6) History of DVT (deep vein thrombosis): Plan: Continue home eliquis (7) CAD (coronary artery disease): Plan: Continue atorvastatin, plavix (8) Hypertension: Plan: Continue to hold home amlodipine for now Monitor BP (9) GERD (gastroesophageal reflux disease): Plan: Continue home omeprazole and carafate Reports she had hematochezia in the past and has colonoscopy scheduled for 11/04/22. DVT ppx - eliquis Full code PT/OT eval Admission and Anticipated Discharge Date Admission Date: October 21, 2022 Subjective Patient seen and examined Reports feeling better today Still has weakness but improving Denied any chest pain, cough, SOB, palpitations Denied abd pain, nausea, vomiting, or diarrhea today Has chronic neurogenic bladder Denied fevers, chills today Physical Exam Constitutional: no acute distress Eyes: PERRL, conjunctivae normal, anicteric sclerae ENMT: Mouth: + dry oral mucous membranes Respiratory: normal respiratory effort, lungs clear to auscultation Cardiovascular: Rate/Rhythm: regular rhythm and + tachycardic S1 S2 Gastrointestinal (Abdomen): normal bowel sounds, soft, nontender, no hepatosplenomegaly Neurologic: PERRL, EOMI, accommodation nl, no face palsy, no dysarthria Psychiatric: A+Ox3, euthymic affect Results & Data Results & Data ([facility]) Vital Signs (Past 12 Hours) Vital Signs Temp Pulse Pulse Resp BP Pulse Ox O2 Del Method 10/22/22 07:41 37.6 C H 103 H 18 133/87 91 Room Air 10/22/22 07:00 99 H 10/22/22 03:35 37.3 C 93 H 20 113/31 L 94 Room Air 10/22/22 00:46 90/62 L 10/21/22 23:23 85 10/21/22 23:09 37.0 C 86 16 85/58 L 94 Room Air Laboratory Results Abnormal lab results 10/21/22 10/21/22 10/21/22 Range/Units 14:07 14:07 14:07 WBC 17.79 H (4.8-10.8) K/ul RBC (3.93-5.22) M/uL Hgb (12.0-16.0) g/dl Hct (34.1-44.9) % RDW Std Deviation 58.8 H (36.4-46.3) fL RDW Coeff of Tiffanie 17.0 H (11.5-14.5) % Neut # (Auto) 16.18 H (1.4-6.5) K/uL Lymph # (Auto) 0.79 L (1.2-3.4) K/uL Immature Gran # (Auto) 0.08 H (0.00-0.02) K/uL Chloride (98-107) mmol/L BUN 25 H (6-23) mg/dl BUN/Creatinine Ratio 21.2 H (10-20) Glucose 103 H (70-99(Fasting)) mg/dl Lactate 3.5 H* (0.4-2.0) mmol/L Calcium (8.5-10.1) mg/dl AST 60 H (13-39) U/L Troponin I High Sens 1393.0 H* D (0-14) pg/ml Total Protein (6.0-8.3) gm/dl Albumin (3.4-5.0) gm/dl Globulin (2.5-4.0) gm/dl Procalcitonin (0-0.5) ng/ml Urine Protein (Negative) Urine Ketones (Negative) Urine Blood (Negative) Ur Leukocyte Esterase (Negative) Urine WBC (Auto) (0-5) /hpf Urine RBC (Auto) (0-4) /hpf U Epithel Cells (Auto) (0-5) /lpf 10/21/22 10/21/22 10/21/22 Range/Units 14:07 15:58 20:32 WBC (4.8-10.8) K/ul RBC (3.93-5.22) M/uL Hgb (12.0-16.0) g/dl Hct (34.1-44.9) % RDW Std Deviation (36.4-46.3) fL RDW Coeff of Tiffanie (11.5-14.5) % Neut # (Auto) (1.4-6.5) K/uL Lymph # (Auto) (1.2-3.4) K/uL Immature Gran # (Auto) (0.00-0.02) K/uL Chloride (98-107) mmol/L BUN (6-23) mg/dl BUN/Creatinine Ratio (10-20) Glucose (70-99(Fasting)) mg/dl Lactate (0.4-2.0) mmol/L Calcium (8.5-10.1) mg/dl AST (13-39) U/L Troponin I High Sens 719.4 H* D (0-14) pg/ml Total Protein (6.0-8.3) gm/dl Albumin (3.4-5.0) gm/dl Globulin (2.5-4.0) gm/dl Procalcitonin 47.80 H (0-0.5) ng/ml Urine Protein 1+ H (Negative) Urine Ketones Trace H (Negative) Urine Blood 3+ H (Negative) Ur Leukocyte Esterase 2+ H (Negative) Urine WBC (Auto) 10-30 H (0-5) /hpf Urine RBC (Auto) >30 H (0-4) /hpf U Epithel Cells (Auto) 5-10 H (0-5) /lpf 10/22/22 10/22/22 Range/Units 06:10 06:10 WBC 12.31 H (4.8-10.8) K/ul RBC 3.58 L (3.93-5.22) M/uL Hgb 10.8 L (12.0-16.0) g/dl Hct 33.7 L (34.1-44.9) % RDW Std Deviation 59.1 H (36.4-46.3) fL RDW Coeff of Tiffanie 17.0 H (11.5-14.5) % Neut # (Auto) (1.4-6.5) K/uL Lymph # (Auto) (1.2-3.4) K/uL Immature Gran # (Auto) (0.00-0.02) K/uL Chloride 108 H (98-107) mmol/L BUN (6-23) mg/dl BUN/Creatinine Ratio 26.9 H (10-20) Glucose (70-99(Fasting)) mg/dl Lactate (0.4-2.0) mmol/L Calcium 7.8 L (8.5-10.1) mg/dl AST 46 H (13-39) U/L Troponin I High Sens (0-14) pg/ml Total Protein 5.3 L D (6.0-8.3) gm/dl Albumin 2.9 L (3.4-5.0) gm/dl Globulin 2.4 L (2.5-4.0) gm/dl Procalcitonin (0-0.5) ng/ml Urine Protein (Negative) Urine Ketones (Negative) Urine Blood (Negative) Ur Leukocyte Esterase (Negative) Urine WBC (Auto) (0-5) /hpf Urine RBC (Auto) (0-4) /hpf U Epithel Cells (Auto) (0-5) /lpf
[2022-10-22] MEDS: DOXYCYCLINE HYCLATE 50 MG CAP PO SCH (18:02)
[2022-10-22] MEDS: TERIFLUNOMIDE 14 MG PO SCH (20:36)
[2022-10-22] MEDS: ZANAFLEX 4 MG PO SCH (20:37)
[2022-10-22] MEDS ORDERED: VANCOMYCIN CONSULT ACTIVE PRN (23:11)
[2022-10-22 23:48] LABS: A calco-baum cmplx NotReported Not Detected (NotDetected); Bact fragilis Not Reported Not Detected (NotDetected); C auris Not Reported Not Detected (NotDetected); Calbicans Not Reported Not Detected (NotDetected); Candida glabrata Not Reported Not Detected (NotDetected); Candida krusei Not Reported Not Detected (NotDetected); Cneoformans/gatti Not Reported Not Detected (NotDetected); Cparapsilosis Not Reported Not Detected (NotDetected); Ctropicalis Not Reported Not Detected (NotDetected); E cloacae compx Not Reported Not Detected (NotDetected); Efaecalis Not Reported Not Detected (NotDetected); Efaecium Not Reported Not Detected (NotDetected); Enterobacterales Not Reported Not Detected (NotDetected); Escherichia coli Not Reported Not Detected (NotDetected); H influenzae Not Reported Not Detected (NotDetected); K aerogenes Not Reported Not Detected (NotDetected); Koxytoca Not Reported Not Detected (NotDetected); Kpneumoniae grp Not Reported Not Detected (NotDetected); Lmonocyt Not Reported Not Detected (NotDetected); N meningitidis Not Reported Not Detected (NotDetected); P aeruginosa Not Reported Not Detected (NotDetected); Proteus spp Not Reported Not Detected (NotDetected); Salmonella spp Not Reported Not Detected (NotDetected); Smarcescens Not Reported Not Detected (NotDetected); Staph lugdunensis Not Reported Not Detected (NotDetected); Staph spp. Not Reported DETECTED (NotDetected); Staphaureus Not Reported Not Detected (NotDetected); Staphepi Not Reported Not Detected (NotDetected); Stenmaltophilia Not Reported Not Detected (NotDetected); Strep agal(GrpB) Not Reported Not Detected (NotDetected); Strep pneum Not Reported Not Detected (NotDetected); Strep pyog (GrpA) Not Reported Not Detected (NotDetected); Strep spp Not Reported Not Detected (NotDetected)
[2022-10-22 23:53] LABS: Staphylococcus spp. DETECTED (NotDetected)
[2022-10-23] MEDS ORDERED: VANCOMYCIN HCL 1,250 MG in SODIUM CHLORIDE 0.9% 250 ML IV SCH (01:00)
[2022-10-23 06:47] LABS: Hematocrit (blood only) 31.6 % (34.1-44.9); Hemoglobin 10.2 g/dl (12.0-16.0); Mean Corpuscular Hemoglobin 30.1 pg (25.0-34.0); Mean Corpuscular Hgb Conc 32.3 g/dL (32.0-36.0); Mean Corpuscular Volume 93.2 fL (80.0-100.0); Mean Platelet Volume 10.9 fL (9.4-12.3); Platelet Count 191 K/uL (130-400); RDW Coefficient of Variation 16.9 % (11.5-14.5); Red Blood Count 3.39 M/uL (3.93-5.22); White Blood Count 4.08 K/ul (4.8-10.8)
[2022-10-23 07:09] LABS: BUN Creatinine Ratio 23.5 (10-20); Calcium 8.2 mg/dl (8.5-10.1); Creatinine Clr Calc Pharmacy 61.8 ml/min; Est GFR (African American) 85.9 ml/min; Est GFR (Non-African American) 74.1 ml/min; Potassium 3.6 mmol/L (3.5-5.1)
[2022-10-23] MEDS: SUCRALFATE 1 GM/10 ML UDC PO SCH ×4 (08:13→20:47)
[2022-10-23] MEDS: ZANAFLEX 4 MG PO SCH ×4 (08:14→20:47)
[2022-10-23] MEDS: APIXABAN 5 MG TABLET PO SCH ×2 (08:15→20:46)
[2022-10-23] MEDS: OXYBUTYNIN CHLORIDE XL 5 MG TABCR PO SCH (08:15)
[2022-10-23] MEDS: PANTOprazole 40 MG TAB PO SCH (08:16)
[2022-10-23] MEDS: ESCITALOPRAM OXALATE 20 MG TAB PO SCH (08:16)
[2022-10-23] MEDS: predniSONE 10 MG TABLET PO SCH (08:16)
[2022-10-23] MEDS: ATORVASTATIN 20 MG TAB PO SCH (08:16)
[2022-10-23] MEDS: CHOLECALCIFEROL 1,000 UNITS 25 MCG TAB PO SCH (08:17)
[2022-10-23] MEDS: CLOPIDOGREL BISULFATE 75 MG TAB PO SCH (08:17)
[2022-10-23] MEDS ORDERED: ZANAFLEX 4 MG EXT SCH (09:00)
--- NOTE | 2022-10-23 09:03 | Urology Consultation ---
Date of Consultation October 23, 2022 Assessment & Plan (1) Neurogenic bladder: Plan 71-year-old female with a history of MS and neurogenic bladder managed with [facility]. She presented with chills and rigors. Patient is chronically colonized from intermittent catheterization and there fore a urine and urine cultures typically will be positive in any setting. Her urine culture only had pinpoint growth and she had no urinary symptoms prior to admission so I suspect this may not have been a urinary tract infection. She may have been dehydrated as she did indicate poor p.o. intake and reported feeling much better after IV fluids. Dehydration could explain her hypotension and tachycardia as well as leukocytosis (hemoconcentrated). Would recommend returning to patient's intermittent catheterization schedule as she likely is not completely emptying her bladder with current external catheter and this will put her at a higher risk for infection One of her blood cultures is positive for gram-positive cocci. Not unreasonable to continue antibiotic treatment and tailor towards this however I am not convinced this was due to urine etiology. That could change depending on reincubation of her urine culture which is pending and repeat blood cultures. Urology will send a message to schedule follow-up with her in our clinic to establish care. Urology to sign off. History of Present Illness Reason for Consultation: Neurogenic bladder, recurrent UTI Attending Physician: Haylie Serrano MD History of Present Illness 71-year-old female with a history of MS and neurogenic bladder who manages with self-catheterization who presented with chills and rigors on 10/22/2022. She was initially tachycardic and mildly hypotensive. Highest temperature was 37.8. Initial labs showed a leukocytosis of 17.7, a creatinine of 1.18, elevated troponins, procalcitonin of 47.8, and a urinalysis that was negative for nitrites, 2+ leukocyte esterase, 10-30 WBCs, greater than 30 RBCs and no bacteria. Urine and blood cultures were obtained. Urine culture is growing pinpoint growth. 1 blood cultures positive for gram positive cocci. She is currently afebrile with stable vitals. Leukocytosis is 4.08, creatinine is 0.81. Patient reports that she has been cathing 4-5 times per day for the past several years. She previously followed with Dr. Milner of [facility] but has not establish care with a new urologist since she left the practice. She reports she gets roughly 2-3 UTIs per year and have not required hospitalization. She does intermittently void between caths. She did not have any urinary symptoms prior to admission. Her biggest complaint was weakness and upper extremity tremors. She did feel like she was dehydrated prior to admission and improved with IV fluids. She did not think she had a UTI at the time. Allergies Allergy/AdvReac Type Severity Reaction Status Date / Time No Known Allergies Allergy Verified 10/21/22 15:12 Home Medications Medication Instructions Recorded Confirmed Type cholecalciferol (vitamin D3) 25 1,000 units PO QAM 09/18/18 10/21/22 History mcg (1,000 unit) capsule escitalopram oxalate 20 mg tablet 20 mg PO QAM 09/18/18 10/21/22 History (Lexapro) oxybutynin chloride 15 mg 15 mg PO QAM 09/18/18 10/21/22 History tablet,extended release 24 hr prednisone 10 mg tablet 10 mg PO QAM 09/18/18 10/21/22 History omeprazole 40 mg capsule,delayed 40 mg PO QAM 07/06/21 10/21/22 History release amlodipine 5 mg tablet (Norvasc) 5 mg PO QAM #30 tabs 07/09/21 10/21/22 Rx apixaban 5 mg tablet (Eliquis) 5 mg PO BID #60 tabs 07/09/21 10/21/22 Rx clopidogrel 75 mg tablet 75 mg PO QAM #30 tabs 07/09/21 10/21/22 Rx sucralfate 100 mg/mL oral 10 ml PO QID 05/13/22 10/21/22 History suspension (Carafate) teriflunomide 14 mg tablet 14 mg PO QPM 05/13/22 10/21/22 History (Aubagio) tizanidine 4 mg tablet (Zanaflex) 4 mg PO QID 05/13/22 10/21/22 History multivitamin with minerals 1 tab PO QAM 07/28/22 10/21/22 History (Hair,Skin and Nails tablet) atorvastatin 20 mg tablet (Lipitor) 20 mg PO QAM 08/10/22 10/21/22 History doxycycline hyclate 50 mg capsule 50 mg PO Q OTHER DAY Rosacea 08/10/22 10/21/22 History azelaic acid 15 % topical gel 1 applic topical DAILY 10/21/22 10/21/22 History Patient History Medical History Anemia CAD (coronary artery disease) Non-obstructive per 06/2021 cardiac cath GERD (gastroesophageal reflux disease) controlled, stable per pt History of blood transfusion History of DVT (deep vein thrombosis) ~6 yrs ago History of GI bleed Upper GIB (2019) felt 2/2 NSAID use History of non-ST elevation myocardial infarction (NSTEMI) 06/2021 (had heart cath, no stents) History of pulmonary embolism ~ 6 yrs ago, IVC filter still in place History of supraventricular tachycardia Hx of gastric ulcer 02/2021 HX: breast cancer Left breast cancer with surgery and chemo/radiation-left arm restriction Hypertension controlled, stable per pt Limb alert care status left arm Multiple sclerosis Follows with Dr. Walker/[facility] Stable Neurogenic bladder SELF CATH 2-3 X'S PER DAY *RECENT HOSPITALIZATION FOR UTI Osteoarthritis of right shoulder Osteoporosis Raynaud disease Surgical History H/O left mastectomy with lymph node removal>LEFT ARM RESTRICTION History of appendectomy History of cardiac cath Cardiac cath (07/06/21; [facility]) > Right dominant coronary system. No evidence of aortic stenosis. Normal left ventricular filling pressures. Nonobstructive disease involving the ostial LAD. No evidence of acute coronary syndrome. Approximately 50% ostial stenosis of the LAD. There was some very mild disease at the ostium of the left circumflex. Recommendations: Medical management. History of colonoscopy History of esophagogastroduodenoscopy (EGD) History of open reduction and internal fixation (ORIF) procedure "left hip" History of tooth extraction Presence of intrathecal pump baclofen pump in place--status post revision/replacement 08/10/2022 S/P IVC filter S/P partial hysterectomy S/p reverse total shoulder arthroplasty right: 05/25/22 LMA#4. No postop issues per anesthesia progress note. Family History Mother Heart disorder Other No family history of adverse response to anesthesia Social History Smoking Status: Former smoker packs per day: 1; Smoking End Date: 1980; Second Hand Exposure: No; Do You Dip or Chew Tobacco: No; Tobacco Cessation Education Requested by Patient: No Hx Alcohol Use: No Hx Substance Use: No Preferred Language: Macanese Communication Ability: Effective Visual Impairment: No Limitations Hearing Ability: Normal Robotic Welder Required: No Beliefs That Will Affect Care: None marital status: / Current Living Situation: Alone Current Living Situation Comment: home alone- uses walker but needs a new one current occupational status: retired How many Children do You have: 3 Other Information That Helps Us Care for You: No Feels Safe at Home: Yes Safety Concerns: Feels Safe At This Time Childhood Exposure to Second-Hand Smoke: Yes Assistive Devices: Walker and Wheelchair Review of Systems Review of Systems: 14 point review of systems negative outside of what is listed above in HPI Physical Exam Physical Exam: General: Alert and oriented, no acute distress HEENT: Normocephalic, mucous membranes moist Pulmonary: Nonlabored respirations Abdomen: Nondistended Extremities: Moves all 4 spontaneously Neuro: No gross deficits Skin: Warm, dry, no rashes noted Results & Data ([facility]) Vital Signs (Past 12 Hours) Vital Signs Temp Pulse Pulse Pulse Resp BP Pulse Ox 10/23/22 08:52 10/23/22 07:22 37.1 C 79 18 115/82 95 10/23/22 02:50 37.1 C 83 16 121/77 94 10/22/22 22:15 85 10/22/22 22:11 37.3 C 83 18 85/64 L 95 O2 Del Method 10/23/22 08:52 Room Air 10/23/22 07:22 Room Air 10/23/22 02:50 Room Air 10/22/22 22:15 10/22/22 22:11 Room Air PG Care Time/CCT Total # of Minutes Spent Total Time Spent with Patient: Total time spent is greater than 50% in coordination of care (as documented) at patient's floor/unit and/or counseling patient: Coding Level of Care Code 16414 Initial Inpt Care Lvl 2 Diagnoses Neurogenic bladder N31.9
[2022-10-23] MEDS: CEFEPIME 2,000 MG in SYRINGE 0 ML IV SCH ×2 (10:02→21:42)
--- NOTE | 2022-10-23 10:42 | Hospitalist Progress Note ---
Date of Service October 23, 2022 Assessment & Plan (1) Sepsis: Plan: Patient has neurogenic bladder and self catheterizes. Had chills, rigors and generalized weakness at home Met SIRS criteria on presentation with leukocytosis, tachycardia. UA has 2+ leukocyte esterase, 10-30 WBC Lactate was 3.5 Has sepsis. Possible sources: urinary tract. Got IVF bolus Elevated lactate normalized Leukocytosis resolved Urine culture pin point, reincubating BCX: 1/4 bottles growing GPC. Unclear if true bacteremia vs contamination as it was 1 bottle of 4 Repeat blood cultures and follow up Continue broad spectrum antibiotics and monitor (2) Elevated troponin: Plan: Trop elevated at 1393 ER physician reported he had reviewed with Belt Builder Helper Dr Morgan who did not recommend any heparin/intervention at this time Denied any chest pain or angina equivalent Trop trended down Get TTE Tele monitor- some bursts of SVT (3) Multiple sclerosis: (4) Neurogenic bladder: Plan: Continue home oxybutynin, zanaflex Has intrathecal baclofen pump Continue home prednisone Intermittent catheterization for now as needed Urologist camilo noted (5) History of pulmonary embolism: (6) History of DVT (deep vein thrombosis): Plan: Continue home eliquis (7) CAD (coronary artery disease): Plan: Continue atorvastatin, plavix (8) Hypertension: Plan: Continue to hold home amlodipine for now BP is normal. Continue to monitor BP (9) GERD (gastroesophageal reflux disease): Plan: Continue home omeprazole and carafate Reports she had hematochezia in the past and has colonoscopy scheduled for 11/04/22. DVT ppx - eliquis Full code Awaiting PT/OT camilo Called and updated daughter as well Admission and Anticipated Discharge Date Admission Date: October 21, 2022 Subjective Patient seen and examined Reports weakness is improving Denied any chest pain, cough, SOB, palpitations Denied abd pain, nausea, vomiting, or diarrhea today Denied fevers, chills today Has chronic neurogenic bladder with intermittent catheterization Physical Exam Constitutional: no acute distress Eyes: PERRL, conjunctivae normal, anicteric sclerae ENMT: external ear and nose normal, oropharynx normal Respiratory: normal respiratory effort, lungs clear to auscultation Cardiovascular: Rate/Rhythm: regular rate and regular rhythm S1 S2 Gastrointestinal (Abdomen): normal bowel sounds, soft, nontender, no hepatosplenomegaly Neurologic: PERRL, EOMI, accommodation nl, no face palsy, no dysarthria Psychiatric: A+Ox3, euthymic affect Results & Data Results & Data ([facility]) Vital Signs (Past 12 Hours) Vital Signs Temp Pulse Pulse Pulse Resp BP Pulse Ox 10/23/22 09:03 85 10/23/22 08:52 10/23/22 07:22 37.1 C 79 18 115/82 95 10/23/22 02:50 37.1 C 83 16 121/77 94 O2 Del Method 10/23/22 09:03 10/23/22 08:52 Room Air 10/23/22 07:22 Room Air 10/23/22 02:50 Room Air Laboratory Results Abnormal lab results 10/21/22 10/23/22 10/23/22 Range/Units 14:07 06:25 06:25 WBC 4.08 L (4.8-10.8) K/ul RBC 3.39 L (3.93-5.22) M/uL Hgb 10.2 L (12.0-16.0) g/dl Hct 31.6 L (34.1-44.9) % RDW Std Deviation 58.0 H (36.4-46.3) fL RDW Coeff of Tiffanie 16.9 H (11.5-14.5) % Chloride 110 H (98-107) mmol/L BUN/Creatinine Ratio 23.5 H (10-20) Calcium 8.2 L (8.5-10.1) mg/dl Staphylococcus sp PCR DETECTED A (NotDetected)
[2022-10-23] MEDS: TERIFLUNOMIDE 14 MG PO SCH (20:47)
[2022-10-24 06:46] LABS: Hematocrit (blood only) 34.2 % (34.1-44.9); Hemoglobin 11.2 g/dl (12.0-16.0); Mean Corpuscular Hemoglobin 30.4 pg (25.0-34.0); Mean Corpuscular Hgb Conc 32.7 g/dL (32.0-36.0); Mean Corpuscular Volume 92.7 fL (80.0-100.0); Mean Platelet Volume 10.6 fL (9.4-12.3); Platelet Count 201 K/uL (130-400); RDW Coefficient of Variation 16.5 % (11.5-14.5); RDW Standard Deviation 56.4 fL (36.4-46.3); Red Blood Count 3.69 M/uL (3.93-5.22)
[2022-10-24 07:10] LABS: BUN Creatinine Ratio 28.8 (10-20); Calcium 8.7 mg/dl (8.5-10.1); Creatinine Clr Calc Pharmacy 68.2 ml/min; Est GFR (African American) 97.4 ml/min; Potassium 3.7 mmol/L (3.5-5.1)
[2022-10-24] MEDS: APIXABAN 5 MG TABLET PO SCH ×2 (08:06→20:33)
[2022-10-24] MEDS: ZANAFLEX 4 MG PO SCH ×4 (08:06→20:32)
[2022-10-24] MEDS: ATORVASTATIN 20 MG TAB PO SCH (08:06)
[2022-10-24] MEDS: CHOLECALCIFEROL 1,000 UNITS 25 MCG TAB PO SCH (08:06)
[2022-10-24] MEDS: CLOPIDOGREL BISULFATE 75 MG TAB PO SCH (08:07)
[2022-10-24] MEDS: predniSONE 10 MG TABLET PO SCH (08:07)
[2022-10-24] MEDS: ESCITALOPRAM OXALATE 20 MG TAB PO SCH (08:07)
[2022-10-24] MEDS: OXYBUTYNIN CHLORIDE XL 5 MG TABCR PO SCH (08:07)
[2022-10-24] MEDS: PANTOprazole 40 MG TAB PO SCH (08:08)
[2022-10-24] MEDS: SUCRALFATE 1 GM/10 ML UDC PO SCH ×5 (08:09→20:40)
[2022-10-24] MEDS: amLODIPine BESYLATE 5 MG TAB PO SCH (08:39)
[2022-10-24] MEDS: CEFEPIME 2,000 MG in SYRINGE 0 ML IV SCH ×2 (09:19→20:33)
--- NOTE | 2022-10-24 10:10 | Hospitalist Progress Note ---
Date of Service October 24, 2022 Assessment & Plan (1) Sepsis: Plan: Patient has neurogenic bladder and self catheterizes. Had chills, rigors and generalized weakness at home Met SIRS criteria on presentation with leukocytosis, tachycardia. UA has 2+ leukocyte esterase, 10-30 WBC Lactate was 3.5 Has sepsis. Possible sources: urinary tract. Got IVF bolus Elevated lactate normalized Leukocytosis resolved Urine culture : multiple org BCX: 1/ bottles growing GPC. Likely contamination Repeat blood cultures from yesterday negative so far Continue cefepime for now If cultures remain negative tomorrow, will change to po and dc home (2) Elevated troponin: Plan: Trop elevated at 1393 ER physician reported he had reviewed with Rn Clinician Dr Morgan who did not recommend any heparin/intervention at this time Denied any chest pain or angina equivalent Trop trended down Get TTE (3) Multiple sclerosis: (4) Neurogenic bladder: Plan: Continue home oxybutynin, zanaflex Has intrathecal baclofen pump Continue home prednisone Intermittent catheterization for now as needed Urologist camilo noted (5) History of pulmonary embolism: (6) History of DVT (deep vein thrombosis): Plan: Continue home eliquis (7) CAD (coronary artery disease): Plan: Continue atorvastatin, plavix (8) Hypertension: Plan: Hypotension on admission. Resolved BP going up this AM. 166/96 Resume home amlodipine and monitor (9) GERD (gastroesophageal reflux disease): Plan: Continue home omeprazole and carafate Reports she had hematochezia in the past and has colonoscopy scheduled for 11/04/22. DVT ppx - eliquis Full code Admission and Anticipated Discharge Date Admission Date: October 21, 2022 Subjective Patient seen and examined Reports weakness continues to improve Denied any chest pain, cough, SOB, palpitations Denied abd pain, nausea, vomiting or diarrhea Has chronic neurogenic bladder with intermittent catheterization Physical Exam Constitutional: no acute distress Eyes: PERRL, conjunctivae normal, anicteric sclerae ENMT: external ear and nose normal, oropharynx normal Respiratory: normal respiratory effort, lungs clear to auscultation Cardiovascular: Rate/Rhythm: regular rate and regular rhythm S1 S2 Gastrointestinal (Abdomen): normal bowel sounds, soft, nontender, no hepatosplenomegaly Musculoskeletal: +pedal edema Neurologic: PERRL, EOMI, accommodation nl, no face palsy, no dysarthria Psychiatric: A+Ox3, euthymic affect Results & Data Results & Data ([facility]) Vital Signs (Past 12 Hours) Vital Signs Temp Pulse Resp BP Pulse Ox O2 Del Method 10/24/22 07:35 36.8 C 76 16 166/96 H 98 Room Air 10/24/22 02:33 36.7 C 79 20 148/86 H 96 Room Air 10/23/22 22:44 36.9 C 81 18 131/91 96 Room Air Laboratory Results Abnormal lab results 10/24/22 10/24/22 Range/Units 06:22 06:22 WBC 4.00 L (4.8-10.8) K/ul RBC 3.69 L (3.93-5.22) M/uL Hgb 11.2 L (12.0-16.0) g/dl RDW Std Deviation 56.4 H (36.4-46.3) fL RDW Coeff of Tiffanie 16.5 H (11.5-14.5) % Chloride 109 H (98-107) mmol/L BUN/Creatinine Ratio 28.8 H (10-20)
[2022-10-24] MEDS: DOXYCYCLINE HYCLATE 50 MG CAP PO SCH (17:26)
[2022-10-24] MEDS: TERIFLUNOMIDE 14 MG PO SCH (20:32)
[2022-10-25 07:37] LABS: Hematocrit (blood only) 33.1 % (34.1-44.9); Hemoglobin 10.7 g/dl (12.0-16.0); Mean Corpuscular Hemoglobin 30.1 pg (25.0-34.0); Mean Corpuscular Hgb Conc 32.3 g/dL (32.0-36.0); Mean Corpuscular Volume 93.2 fL (80.0-100.0); Mean Platelet Volume 10.3 fL (9.4-12.3); Platelet Count 234 K/uL (130-400); RDW Coefficient of Variation 16.1 % (11.5-14.5); RDW Standard Deviation 55.4 fL (36.4-46.3); Red Blood Count 3.55 M/uL (3.93-5.22)
[2022-10-25] MEDS: SUCRALFATE 1 GM/10 ML UDC PO SCH ×2 (07:49→10:56)
[2022-10-25 07:57] LABS: BUN Creatinine Ratio 25.8 (10-20); Calcium 8.4 mg/dl (8.5-10.1); Creatinine Clr Calc Pharmacy 76.5 ml/min; Est GFR (African American) 104.5 ml/min; Est GFR (Non-African American) 90.1 ml/min; Potassium 3.7 mmol/L (3.5-5.1)
[2022-10-25] MEDS: CLOPIDOGREL BISULFATE 75 MG TAB PO SCH (07:58)
[2022-10-25] MEDS: CHOLECALCIFEROL 1,000 UNITS 25 MCG TAB PO SCH (07:58)
[2022-10-25] MEDS: ATORVASTATIN 20 MG TAB PO SCH (07:58)
[2022-10-25] MEDS: predniSONE 10 MG TABLET PO SCH (07:59)
[2022-10-25] MEDS: ESCITALOPRAM OXALATE 20 MG TAB PO SCH (07:59)
[2022-10-25] MEDS: OXYBUTYNIN CHLORIDE XL 5 MG TABCR PO SCH (07:59)
[2022-10-25] MEDS: ZANAFLEX 4 MG PO SCH ×2 (07:59→12:26)
[2022-10-25] MEDS: PANTOprazole 40 MG TAB PO SCH (07:59)
[2022-10-25] MEDS: APIXABAN 5 MG TABLET PO SCH (08:00)
[2022-10-25] MEDS: amLODIPine BESYLATE 5 MG TAB PO SCH (08:00)
[2022-10-25] MEDS ORDERED: CEFDINIR 300 MG CAP PO SCH (09:00)
--- NOTE | 2022-10-25 11:04 | Discharge Summary ---
Discharge Summary Date of Service October 25, 2022 Notes For Next Care Provider Follow up recovery at home Needs outpatient follow up with Cardiology Urology will schedule follow up with her to establish care Medication Changes From Visit Discharged on po cefdinir to complete treatment Admission HPI Per Admitting Provider 71-year-old woman with history of MS with spasticity, chronic intrathecal baclofen pump, neurogenic bladder and self catheterizes, iron deficiency anemia, DVT/PE on Eliquis, CAD, GI bleed, SVT who presented with generalized weakness, chills and rigors that started yesterday evening. Patient reported that she started having rigors yesterday evening associated with chills. Reported that she thought she had a fever but the measurement at home was 97. This was associated with generalized weakness which worsened this morning. According to daughter and son-in-law who was at bedside, she was noted to be very weak this morning with slurred speech with concern for possible stroke. Patient also reported 1 loose bowel movements prior to being brought to the ER. Patient denies any chest pain, cough, shortness of breath Denies any focal weakness. Reports weakness is generalized. Patient does have weakness in the lower extremities, ambulatory dysfunction from her MS as well as right shoulder surgery some months ago for which she is still recovering from. Patient denies any melena, hematochezia, blood in urine. Denied any abdominal pain, flank pain. On presentation to the ER, was noted to be hypotensive with blood pressure of 64/49, heart rate was 84 but increased to 105, Initial work-up was notable for leukocytosis of 17,000 and lactate of 3.5. Patient was started on oral IV fluid bolus. Currently receiving IV fluid bolus of 30 cc/kg. Patient reports feeling better right now compared to presentation. Blood pressures currently improved to 113/68, heart rate of 104 Admission Exam Per Admitting Provider Constitutional: no acute distress Dry oral mucosa Eyes: PERRL, conjunctivae normal, anicteric sclerae ENMT: Mouth: + dry oral mucous membranes Respiratory: normal respiratory effort, lungs clear to auscultation Cardiovascular: Rate/Rhythm: regular rhythm and + tachycardic S1-S2 Gastrointestinal (Abdomen): normal bowel sounds, soft, nontender, no hepatosplenomegaly Musculoskeletal: Trace pedal edema which patient reports is chronic Neurologic: PERRL, EOMI, accommodation nl, no face palsy, no dysarthria Power is 3/5 in lower extremities bilaterally and normal in upper extremities Psychiatric: A+Ox3, euthymic affect Genitourinary: No CVA tenderness Principal Dx & Hospital Course #1 = Principal Diagnosis (1) Sepsis: Patient has neurogenic bladder and self catheterizes. Had chills, rigors and generalized weakness at home Met SIRS criteria on presentation with leukocytosis, tachycardia. UA has 2+ leukocyte esterase, 10-30 WBC Lactate was 3.5 Has sepsis. Possible sources: Complicated urinary tract infection in a patient that intermittently catheterizes. Got IVF bolus Elevated lactate normalized Leukocytosis resolved Urine culture : multiple org BCX: 1/ of sets of blood cultures grew coagulase neg staph Likely contamination Was initially treated with IV cefepime inpatient Presenting symptoms are all resolved Discharged on po cefdinir for 6 more days to complete treatment (2) Elevated troponin: Trop elevated at 1393 ER physician reported he had reviewed with Commissioned Sales Associate Dr Morgan who did not recommend any heparin/intervention at this time Denied any chest pain or angina equivalent Possible demand ischemia Trop trended down TTE noted mild conc LVH, EF 65-70%, normal RV size and function, Grade I DD, no significant valvular pathology Patient to follow up with Cardiology outpatient (3) Multiple sclerosis: (4) Neurogenic bladder: Continue home oxybutynin, zanaflex Has intrathecal baclofen pump Continue home prednisone Urologist evaluated while inpatient and noted they will schedule follow up outpatient Continue intermittent catheterization (5) History of pulmonary embolism: (6) History of DVT (deep vein thrombosis): Continue home eliquis (7) CAD (coronary artery disease): Continue atorvastatin, plavix (8) Hypertension: Hypotension on admission, now resolved Home antihypertensives resumed (9) GERD (gastroesophageal reflux disease): Continue home omeprazole and carafate Reported she had hematochezia in the past and has colonoscopy scheduled for 11/04/22. Discharge Exam Constitutional no acute distress Eyes PERRL, conjunctivae normal, anicteric sclerae ENMT external ear and nose normal, oropharynx normal Respiratory normal respiratory effort, lungs clear to auscultation Cardiovascular Rate/Rhythm: regular rate and regular rhythm S1 S2 Gastrointestinal (Abdomen) normal bowel sounds, soft, nontender, no hepatosplenomegaly Musculoskeletal +pedal edema Neurologic PERRL, EOMI, accommodation nl, no face palsy, no dysarthria Psychiatric A+Ox3, euthymic affect Updated Medication List Medication Instructions Recorded Confirmed Type cholecalciferol (vitamin D3) 25 1,000 units PO QAM 09/18/18 10/21/22 History mcg (1,000 unit) capsule escitalopram oxalate 20 mg tablet 20 mg PO QAM 09/18/18 10/21/22 History (Lexapro) oxybutynin chloride 15 mg 15 mg PO QAM 09/18/18 10/21/22 History tablet,extended release 24 hr prednisone 10 mg tablet 10 mg PO QAM 09/18/18 10/21/22 History omeprazole 40 mg capsule,delayed 40 mg PO QAM 07/06/21 10/21/22 History release amlodipine 5 mg tablet (Norvasc) 5 mg PO QAM #30 tabs 07/09/21 10/21/22 Rx apixaban 5 mg tablet (Eliquis) 5 mg PO BID #60 tabs 07/09/21 10/21/22 Rx clopidogrel 75 mg tablet 75 mg PO QAM #30 tabs 07/09/21 10/21/22 Rx sucralfate 100 mg/mL oral 10 ml PO QID 05/13/22 10/21/22 History suspension (Carafate) teriflunomide 14 mg tablet 14 mg PO QPM 05/13/22 10/21/22 History (Aubagio) tizanidine 4 mg tablet (Zanaflex) 4 mg PO QID 05/13/22 10/21/22 History multivitamin with minerals 1 tab PO QAM 07/28/22 10/21/22 History (Hair,Skin and Nails tablet) atorvastatin 20 mg tablet (Lipitor) 20 mg PO QAM 08/10/22 10/21/22 History doxycycline hyclate 50 mg capsule 50 mg PO Q OTHER DAY Rosacea 08/10/22 10/21/22 History azelaic acid 15 % topical gel 1 applic topical DAILY 10/21/22 10/21/22 History cefdinir 300 mg capsule 300 mg PO BID 6 days #12 caps 10/25/22 Rx Hospital Stay Data Consultations 10/21/22 15:38 ED Decision to Admit Stat 10/22/22 14:00 Consult Urology Routine Diagnostic Imagining Performed 10/21/22 16:19 CT head/brain wo con Stat Pending Results Patient Have Any Pending Studies at Discharge: No Discharge Instructions Given to Patient (Per Discharging Provider) Mrs Shelby You came to the hospital with weakness, chills and rigors. Your evaluation noted signs of infection on your blood work and urine tests. You were started on IV antibiotics. All your symptoms are resolved. You are being discharged on a few more days of antibiotics to complete therapy. Please ensure follow up with your Primary Doctor. Please follow up with Urology regarding your neurogenic bladder. It was a pleasure taking care of you. Total Time Total Time Spent Total Time Spent (In Minutes): 50 Total Time Includes: Examination of the Patient, Discharge Planning and Medication Reconciliation
--- NOTE | 2022-10-28 12:29 | Coding Query ---
CODING QUERY To promote full compliance with coding requirements relating to patient care, provider participation is requested in all cases of front end loader operator uncertainty. Please assist us with the question(s) below: In the record, it states that the patient has a complicated UTI. The ER documents, "The patient does have neurogenic bladder and does self cath. The patient does state that she reuses her catheters", and the Discharge Summary documents, "Complicated urinary tract infection in a patient that intermittently catheterizes". Please clarify below the cause of the UTI if applicable. Thank you. ( ) Self-catheterization was the cause of the UTI. ( ) Other urinary cath/device was the cause of the UTI. ( ) UTI, unspecified cause. ( x ) Other (Specify):_Self catheterization likely cause of UTI Principal Diagnosis: "that condition established after study, to be chiefly responsible for occasioning the admission of the patient to the hospital for care." Co-Existing Principal Diagnosis: "when two or more diagnoses equally meet the criteria for principal diagnosis as determined by the circumstances of admission, diagnostic work up, and/or therapy provided, and the Alphabetic Index, Tabular List, or another coding guideline does not provide sequencing direction, any one of the diagnoses may be sequenced first." "When the physician has documented what appears to be a current diagnosis in the body of the record, but has not included the diagnosis in the final diagnostic statement, the physician should be asked whether the diagnosis should be added." (Source Coding Clinic 2 QTR90. p3-4) [id number]
== END 2022-10-25 13:17 | disposition home or self-care (01) | DRG 698 ==
LOC: ED 13:39 → 2E 16:37

== ENCOUNTER 2023-03-05 16:00 | Inpatient (IN) ==
[2023-03-05] MEDS ORDERED: ONDANSETRON INJ 2 MG/ML 2 ML VIAL IV STA (16:18)
[2023-03-05] MEDS ORDERED: SODIUM CHLORIDE 0.9% 1000ML 500 ML IV ONE ×2 (16:18→22:38)
[2023-03-05] MEDS ORDERED: SODIUM CHLORIDE 0.9% 1000ML 1,000 ML IV SCH ×2 (16:30→21:15)
[2023-03-05 16:55] LABS: HCO3 VBG 31 mmol/L; Oxygen Saturation VBG < 60.0 %; PCO2 VBG 50 mmHg (38-50); PO2 VBG 21 mmHg
[2023-03-05 16:59] LABS: Hemoglobin 11.8 g/dl (12.0-16.0); Mean Corpuscular Hemoglobin 28.9 pg (25.0-34.0); Mean Corpuscular Hgb Conc 31.9 g/dL (32.0-36.0); Mean Corpuscular Volume 90.5 fL (80.0-100.0); Mean Platelet Volume 10.6 fL (9.4-12.4); Platelet Count 259 K/uL (130-400); RDW Coefficient of Variation 14.7 % (11.5-14.5); RDW Standard Deviation 48.3 fL (36.4-46.3); Red Blood Count 4.09 M/uL (4.20-5.40); White Blood Count 6.56 K/ul (4.8-10.8)
--- NOTE | 2023-03-05 17:10 | XRay Report ---
XR chest 1V portable CLINICAL HISTORY: Sepsis COMPARISON STUDY: Chest radiograph October 21, 2022. Chest MRI January 04, 2022. FINDINGS: Right shoulder arthroplasty is incidentally noted. There is no pneumothorax or pleural effu aicha. Mild elevation of left hemidiaphragm is unchanged. S-shaped scoliosis of the thoracolumbar spin e is incidentally noted. A hiatal hernia is again noted. Cardiomediastinal silhouette is stable. Inte rstitial prominence is unchanged. There has been no significant change in appearance of the chest. Mi nimal left basilar opacity favors atelectasis. IMPRESSION: No acute cardiopulmonary findings. No change in appearance of the chest. ACT 112: Negative or not required by law. Electronically signed by: Scar Holden M.D. 03/05/2023 5:09 PM
[2023-03-05 17:15] LABS: Albumin Level 3.4 gm/dl (3.4-5.0); BUN Creatinine Ratio 23.8 (10-20); Bilirubin Direct 0.1 mg/dl (0-0.2); Bilirubin,Total 0.7 mg/dl (0.2-1.0); Calcium 8.1 mg/dl (8.6-10.3); Est GFR (African American) 86.6 ml/min; Est GFR (Non-African American) 74.7 ml/min; Magnesium 1.6 mg/dl (1.7-2.4); Potassium 3.8 mmol/L (3.5-5.1); Total Protein 5.8 gm/dl (6.0-8.3)
[2023-03-05 17:20] LABS: Troponin I High Sensitivity 38.1 pg/ml (0-14)
[2023-03-05 17:22] LABS: Basophils # (auto) 0.03 K/uL (0-0.2); Basophils % (auto) 0.5 %; Eosinophils # (auto) 0.04 K/uL (0-0.50); Eosinophils % (auto) 0.6 %; Immature Granulocytes # (auto) 0.02 K/uL (0.01-0.20); Immature Granulocytes % (auto) 0.3 %; Lymphocytes # (auto) 0.13 K/uL (1.2-3.4); Monocytes % (auto) 4.6 %; Neutrophils # (auto) 6.04 K/uL (1.40-6.50); Toxic Vacuolation 1+
[2023-03-05 17:24] LABS: INR 1.1 (0.9-1.1); Partial Thromboplastin Ratio 0.9; Partial Thromboplastin Time 24.5 Seconds (21.0-31.0); Prothrombin Time 11.4 Seconds (9.0-12.0)
[2023-03-05 17:26] LABS: Influenza A virus by PCR Negative (Neg); Influenza B virus by PCR Negative (Neg); RSV by PCR Negative (Neg); SARS CoV2 RNA(COVID-19) Ceph NEGATIVE (Negative)
[2023-03-05] MEDS ORDERED: OPTIRAY 350 100ml IV ONE (18:00)
--- NOTE | 2023-03-05 18:34 | CT Scan Report ---
CT OF THE ABDOMEN AND PELVIS WITH CONTRAST CLINICAL HISTORY: Abdominal pain. COMPARISON STUDY: CT of the abdomen and pelvis May 13, 2022. TECHNIQUE: Following IV administration of 84 mL of Optiray, axial images of the abdomen and pelvis we re obtained from the lung bases to the proximal femurs. Images were reviewed in the axial, sagittal, and coronal planes. IV contrast was administered without complication. Automated exposure control wa s utilized for the study. A dose lowering technique was utilized adhering to the principles of ALARA . CT DOSE: 264.73 mGy.cm FINDINGS: Moderate-sized hiatal hernia is noted. This was shown on prior CT. No pneumatosis, free air or portal venous gas is present. IVC filter is in place. Intrathecal catheter is noted. The liver, s pleen, adrenal glands and pancreas are unremarkable. There is moderate bilateral hydroureteronephrosi s. This is related to the bladder given the irregular thickened trabeculated bladder wall. Bladder is mildly distended. There is no evidence for a bowel obstruction. The appendix is not visualized. The caliber and wall thickness of small and large bowel are normal. Major vasculature is patent. 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 Left hip arthroplasty is noted. No acute fractur es are identified within the visualized skeletal structures. Lumbar spine levoscoliosis. Water attenu ation bilateral renal lesions reflect cysts. IMPRESSION: 1. No bowel obstruction. No bowel wall thickening. 2. Moderate bilateral hydroureteronephrosis which is likely related to bladder given the thickened, i rregular trabeculated bladder wall. 3. Moderate-sized hiatal hernia, unchanged. ACT 112: Negative or not required by law. Electronically signed by: Scar Holden M.D. 03/05/2023 6:32 PM
[2023-03-05 19:30] LABS: Appearance Urine Clear (Clear); Bacteria Urine Automated 4+ (Negative); Bilirubin Urine Negative (Negative); Blood Urine Negative (Negative); Cast Urine Automated 0 /lpf (0-5); Color Urine Yellow; Epithelial Cell Urine Auto 0-5 /lpf (0-5); Glucose Urine UA Negative (Negative); Ketones Urine Trace (Negative); Leukocyte Esterase Urine Negative (Negative); Nitrite Urine Positive (Negative); Protein Urine Negative (Negative); RBC Urine Automated 0-4 /hpf (0-4); Urobilinogen Urine Negative (Negative); WBC Urine Automated 0 /hpf (0-5)
--- NOTE | 2023-03-05 20:52 | Emergency Department Note ---
History of Present Illness General Chief complaint: Nausea Stated complaint: FEVER, NAUSEA, DIARRHEA Time Seen by Provider: 03/05/23 16:18 History of Present Illness Provider Complaint: + nausea, + diarrhea and + abdominal pain; no vomiting Onset (ago): day(s) 2 Description of Diarrhea: no mucousy, no tarry, no blood-streaked or no bloody (bright red) Associated Abdominal Pain: Yes Location of pain: + diffuse Quality: + cramping, + stabbing and + aching Pain Consistency: + intermittent Relieved By: + none Exacerbated By: + none Context: + recent antibiotic use (Patiently recently on Augmentin for UTI); no foreign travel, no sick contacts, no alcohol abuse, no NSAID use or no smoking Associated symptoms: + fever/chills (Tmax 100.5 earlier today) and + dysuria; no cough, no rash, no altered mental status or no anxiety HPI Narrative: Family reports that the patient has a history of sepsis and she presented in a similar manner in the past and they became concerned she is septic again. Home Medications Medication Instructions Recorded Confirmed Type cholecalciferol (vitamin D3) 25 1,000 units PO QAM 09/18/18 11/30/22 History mcg (1,000 unit) capsule escitalopram oxalate 20 mg tablet 20 mg PO QAM 09/18/18 11/30/22 History (Lexapro) oxybutynin chloride 15 mg 15 mg PO QAM 09/18/18 11/30/22 History tablet,extended release 24 hr prednisone 10 mg tablet 10 mg PO QAM 09/18/18 11/30/22 History omeprazole 40 mg capsule,delayed 40 mg PO QAM 07/06/21 11/30/22 History release amlodipine 5 mg tablet (Norvasc) 5 mg PO QAM #30 tabs 07/09/21 11/30/22 Rx apixaban 5 mg tablet (Eliquis) 5 mg PO BID #60 tabs 07/09/21 11/30/22 Rx clopidogrel 75 mg tablet 75 mg PO QAM #30 tabs 07/09/21 11/30/22 Rx sucralfate 100 mg/mL oral 10 ml PO QID 05/13/22 11/30/22 History suspension (Carafate) teriflunomide 14 mg tablet 14 mg PO QPM 05/13/22 11/30/22 History (Aubagio) tizanidine 4 mg tablet (Zanaflex) 4 mg PO QID 05/13/22 11/30/22 History multivitamin with minerals 1 tab PO QAM 07/28/22 11/30/22 History (Hair,Skin and Nails tablet) atorvastatin 20 mg tablet (Lipitor) 20 mg PO QAM 08/10/22 11/30/22 History doxycycline hyclate 50 mg capsule 50 mg PO Q OTHER DAY Rosacea 08/10/22 11/30/22 History azelaic acid 15 % topical gel 1 applic topical DAILY 10/21/22 11/30/22 History aspirin 81 mg tablet 81 mg PO DAILY 11/04/22 11/30/22 History baclofen 10 mg tablet 10 mg PO TID PRN for spasms 11/30/22 11/30/22 History Allergies Allergy/AdvReac Type Severity Reaction Status Date / Time No Known Allergies Allergy Verified 11/30/22 14:17 Past Med/Surg History Medical History Anemia CAD (coronary artery disease) Non-obstructive per 06/2021 cardiac cath GERD (gastroesophageal reflux disease) controlled, stable per pt History of blood transfusion History of DVT (deep vein thrombosis) ~6 yrs ago History of GI bleed Upper GIB (2019) felt 2/2 NSAID use History of non-ST elevation myocardial infarction (NSTEMI) 06/2021 (had heart cath, no stents) History of pulmonary embolism ~ 6 yrs ago, IVC filter still in place History of recent hospitalization 09/2022 [facility] - sepsis History of supraventricular tachycardia Hx of gastric ulcer 02/2021 HX: breast cancer Left breast cancer with surgery and chemo/radiation-left arm restriction Hypertension controlled, stable per pt Limb alert care status left arm Multiple sclerosis Follows with Dr. Walker/[facility] Stable Neurogenic bladder SELF CATH 2-3 X'S PER DAY *RECENT HOSPITALIZATION FOR UTI Osteoarthritis of right shoulder Osteoporosis Raynaud disease Surgical History H/O left mastectomy with lymph node removal>LEFT ARM RESTRICTION History of appendectomy History of cardiac cath Cardiac cath (07/06/21; [facility]) > Right dominant coronary system. No evidence of aortic stenosis. Normal left ventricular filling pressures. Nonobstructive disease involving the ostial LAD. No evidence of acute coronary syndrome. Approximately 50% ostial stenosis of the LAD. There was some very mild disease at the ostium of the left circumflex. Recommendations: Medical management. History of colonoscopy History of esophagogastroduodenoscopy (EGD) History of open reduction and internal fixation (ORIF) procedure "left hip" History of tooth extraction Presence of intrathecal pump baclofen pump in place--status post revision/replacement 08/10/2022 S/P IVC filter S/P partial hysterectomy S/p reverse total shoulder arthroplasty right: 05/25/22 LMA#4. No postop issues per anesthesia progress note. Family History Mother Heart disorder Other No family history of adverse response to anesthesia Social History Smoking Status: Never smoker packs per day: 1; Second Hand Exposure: No; Hx Alcohol Use: No Hx Substance Use: No Preferred Language: B[place] Communication Ability: Effective Visual Impairment: No Limitations Hearing Ability: Normal Hairspring Staker Required: No Beliefs That Will Affect Care: None marital status: / Current Living Situation: Alone Current Living Situation Comment: home alone- uses walker but needs a new one current occupational status: retired How many Children do You have: 3 Feels Safe at Home: Yes Childhood Exposure to Second-Hand Smoke: Yes Assistive Devices: Wheelchair Physical Exam Vital Signs: Vital Signs - 24 hr 03/05/23 16:03 03/05/23 16:00 03/05/23 17:06 Temperature 36.7 C Temperature Source Temporal Artery Sc an Pulse Rate 104 H 102 H Pulse Rate [Apical ] 106 H Pulse Rate from Sp O2 Sensor Respiratory Rate 16 18 Respiratory Effort / Characteristics Non-Labored Sponta neous Non-Labored Sponta neous Respiratory Depth Normal Normal Respiratory Patter n Regular Blood Pressure 124/75 Blood Pressure Tamika n 91 Blood Pressure Pos ition Sitting Pulse Oximetry 93 Oxygen Delivery Me thod Room Air Sepsis Recent Feve r Within 48 Hours No Sepsis New/Unexpla ined Change in Men estrella Status N/A Sepsis Action Take n by Nursing No Action Required 03/05/23 16:57 03/05/23 17:00 03/05/23 17:00 Temperature Temperature Source Pulse Rate 101 H 107 H Pulse Rate [Apical ] Pulse Rate from Sp O2 Sensor 101 H 102 H Respiratory Rate 18 22 Respiratory Effort / Characteristics Respiratory Depth Respiratory Patter n Blood Pressure 115/67 Blood Pressure Tamika n 83 Blood Pressure Pos ition Pulse Oximetry 100 95 Oxygen Delivery Me thod Sepsis Recent Feve r Within 48 Hours Sepsis New/Unexpla ined Change in Men estrella Status Sepsis Action Take n by Nursing 03/05/23 17:15 03/05/23 17:15 03/05/23 17:30 Temperature Temperature Source Pulse Rate 108 H Pulse Rate [Apical ] Pulse Rate from Sp O2 Sensor Respiratory Rate 17 Respiratory Effort / Characteristics Respiratory Depth Respiratory Patter n Blood Pressure 124/73 115/75 Blood Pressure Tamika n 90 88 Blood Pressure Pos ition Pulse Oximetry Oxygen Delivery Me thod Sepsis Recent Feve r Within 48 Hours Sepsis New/Unexpla ined Change in Men estrella Status Sepsis Action Take n by Nursing 03/05/23 17:30 03/05/23 17:45 03/05/23 17:45 Temperature Temperature Source Pulse Rate 102 H 108 H Pulse Rate [Apical ] Pulse Rate from Sp O2 Sensor 105 H 105 H Respiratory Rate 20 20 Respiratory Effort / Characteristics Respiratory Depth Respiratory Patter n Blood Pressure 133/82 Blood Pressure Tamika n 99 Blood Pressure Pos ition Pulse Oximetry 97 95 Oxygen Delivery Me thod Sepsis Recent Feve r Within 48 Hours Sepsis New/Unexpla ined Change in Men estrella Status Sepsis Action Take n by Nursing 03/05/23 18:14 03/05/23 18:14 03/05/23 18:15 Temperature Temperature Source Pulse Rate 110 H 112 H Pulse Rate [Apical ] Pulse Rate from Sp O2 Sensor 111 H 109 H Respiratory Rate 18 17 Respiratory Effort / Characteristics Respiratory Depth Respiratory Patter n Blood Pressure 163/102 H Blood Pressure Tamika n 122 Blood Pressure Pos ition Pulse Oximetry 94 95 Oxygen Delivery Me thod Sepsis Recent Feve r Within 48 Hours Sepsis New/Unexpla ined Change in Men estrella Status Sepsis Action Take n by Nursing 03/05/23 18:30 03/05/23 18:30 03/05/23 18:45 Temperature Temperature Source Pulse Rate 110 H 110 H Pulse Rate [Apical ] Pulse Rate from Sp O2 Sensor 111 H Respiratory Rate 24 16 Respiratory Effort / Characteristics Respiratory Depth Respiratory Patter n Blood Pressure 174/108 H Blood Pressure Tamika n 130 Blood Pressure Pos ition Pulse Oximetry 95 Oxygen Delivery Me thod Room Air Sepsis Recent Feve r Within 48 Hours Sepsis New/Unexpla ined Change in Men estrella Status Sepsis Action Take n by Nursing 03/05/23 19:00 03/05/23 19:00 03/05/23 19:15 Temperature Temperature Source Pulse Rate 109 H 109 H Pulse Rate [Apical ] Pulse Rate from Sp O2 Sensor 112 H 111 H Respiratory Rate 20 21 Respiratory Effort / Characteristics Respiratory Depth Respiratory Patter n Blood Pressure 157/104 H Blood Pressure Tamika n 121 Blood Pressure Pos ition Pulse Oximetry 94 94 Oxygen Delivery Me thod Sepsis Recent Feve r Within 48 Hours Sepsis New/Unexpla ined Change in Men estrella Status Sepsis Action Take n by Nursing 03/05/23 19:18 03/05/23 19:18 Temperature Temperature Source Pulse Rate 110 H Pulse Rate [Apical ] Pulse Rate from Sp O2 Sensor 112 H Respiratory Rate 27 H Respiratory Effort / Characteristics Respiratory Depth Respiratory Patter n Blood Pressure 167/95 H Blood Pressure Tamika n 119 Blood Pressure Pos ition Pulse Oximetry 93 Oxygen Delivery Me thod Sepsis Recent Feve r Within 48 Hours Sepsis New/Unexpla ined Change in Men estrella Status Sepsis Action Take n by Nursing Physical Exam: Physical Exam HENT: Exam performed. -Head: Normocephalic and atraumatic. -Right Ear: External ear normal. No mastoid erythema -Left Ear: External ear normal. No mastoid erythema -Mouth/Throat: Dry mucous membranes no trismus in the jaw. No dental abscesses or uvula swelling. No oropharyngeal exudate or tonsillar abscesses. EYES: Conjunctivae and EOM are normal. Right eye exhibits no discharge. Left eye exhibits no discharge. No scleral icterus. NECK: Normal range of motion. Neck supple. No JVD present. No rigidity. No tracheal deviation and normal range of motion present. CV: Normal rate, regular rhythm, normal heart sounds and intact distal pulses. There is no peripheral edema. Palpable radial pulses bue. PULM/CHEST: Effort normal and breath sounds normal. No respiratory distress. No stridor. She has no wheezes. She has no rales. -Chest Wall: She exhibits no tenderness. ABD: The abdomen is soft. She has no distension.There is no tenderness. There is no rebound, no guarding. MUSC/SKEL: Normal range of motion. There is no peripheral edema, tenderness or deformity. LYMPH: No cervical adenopathy. NEURO: Motor and sensation grossly intact SKIN: Skin is warm and dry. She is not diaphoretic. PSYCH: She has a normal mood and affect. Behavior is normal. Judgment and thought content normal. Course Course 1617: The patient was evaluated in room C1. A complete history and physical exam was performed Cardiac monitoring: An order was placed for continuous cardiac monitoring. The monitor shows a rate of 100 with sinus rhythm interpreted by wv Sepsis protocols initiated. 2114: Patient remains tachycardic. On reassessment no pain on palpation of the abdomen. Labs show white blood cell count of 6.56 hemoglobin 11.8 platelet count is stable. Coagulation studies within normal limits. Venous blood gas within normal limits. Lactic acid within normal limits. Electrolytes and renal function within normal limits. Procalcitonin negative. Urinalysis concerning for UTI. COVID and RSV and influenza negative. CT abdomen pelvis shows no bowel obstruction moderate hydronephrosis likely related to the thickened bladder wall. Chest x-ray negative. Patient's initial troponin is 38.1. Delta troponin is 40. Patient has a chronically elevated troponin and this is better than it was in September 2022 however higher than it was in April 2022. I had a long discussion with the patient and family members at bedside. We did discuss the possibility of outpatient follow-up with outpatient change of oral antibiotics however given the patient's persistent tachycardia, history of sepsis, failed outpatient treatment with oral antibiotics, is thought to be more prudent to keep the patient in the hospital overnight continue IV hydration give IV antibiotics and see if the patient needs to be evaluated cardiology in the morning. Discussed with Dr. Jacob [facility] hospitalist who will evaluate the patient for admission. Administered Medications Discontinued Medications Sodium Chloride (Nss 1000ml) 500 mls @ 999 mls/hr IV .Q31M ONE Stop: 03/05/23 16:48 Last Infusion: 03/05/23 18:43 Dose: 0 mls/hr Documented By: Admin: 03/05/23 16:44 Dose: 999 mls/hr Documented By: GLENNA Sodium Chloride (Nss 1000ml) 1,000 mls @ 999 mls/hr IV .Q1H1M MICHELLE Stop: 03/05/23 17:30 Last Infusion: 03/05/23 18:43 Dose: 0 mls/hr Documented By: Admin: 03/05/23 16:44 Dose: 999 mls/hr Documented By: GLENNA Ioversol (Optiray 350 100ml) 84 ml IV ONCE ONE Stop: 03/05/23 18:01 Last Admin: 03/05/23 18:02 Dose: 84 ml Documented By: ANITHA Ondansetron HCl (Ondansetron Inj 2 Mg/Ml 2 Ml Vial) 4 mg IV NOW STA Stop: 03/05/23 16:19 Last Admin: 03/05/23 16:43 Dose: 4 mg Documented By: GLENNA Medical Decision Making Laboratory Data Attestation: I reviewed the patient's lab results. 03/05/23 16:29 03/05/23 16:29 Lab Results 03/05/23 03/05/23 03/05/23 Range/Units 16:29 16:29 16:29 WBC 6.56 (4.8-10.8) K/ul RBC 4.09 L (4.20-5.40) M/uL Hgb 11.8 L (12.0-16.0) g/dl Hct 37.0 (37.0-47.0) % MCV 90.5 (80.0-100.0) fL MCH 28.9 (25.0-34.0) pg MCHC 31.9 L (32.0-36.0) g/dL RDW Std Deviation 48.3 H (36.4-46.3) fL RDW Coeff of Tiffanie 14.7 H (11.5-14.5) % Plt Count 259 (130-400) K/uL MPV 10.6 (9.4-12.4) fL Immature Gran % (Auto) 0.3 % Neut % (Auto) 92.0 % Lymph % (Auto) 2.0 % [place] % (Auto) 4.6 % Eos % (Auto) 0.6 % Baso % (Auto) 0.5 % Neut # (Auto) 6.04 (1.40-6.50) K/uL Lymph # (Auto) 0.13 L (1.2-3.4) K/uL [place] # (Auto) 0.30 (0.11-0.59) K/uL Eos # (Auto) 0.04 (0-0.50) K/uL Baso # (Auto) 0.03 (0-0.2) K/uL Immature Gran # (Auto) 0.02 (0.01-0.20) K/uL Toxic Vacuolation 1+ PT 11.4 (9.0-12.0) Seconds INR 1.1 (0.9-1.1) APTT 24.5 (21.0-31.0) Seconds PTT Ratio 0.9 VBG pH (7.36-7.41) VBG pCO2 (38-50) mmHg VBG pO2 mmHg VBG HCO3 mmol/L VBG O2 Saturation % VBG Base Excess mEq/L Sodium 141 (136-145) mmol/L Potassium 3.8 (3.5-5.1) mmol/L Chloride 105 (98-107) mmol/L Carbon Dioxide 30 (21-32) mmol/L Anion Gap 6 (3-11) BUN 19 (6-23) mg/dl Creatinine 0.80 (0.6-1.2) mg/dl Est Cr Clr Drug Dosing 60.0 ml/min Est GFR ( Amer) 86.6 ml/min Est GFR (Non-Af Amer) 74.7 ml/min BUN/Creatinine Ratio 23.8 H (10-20) Glucose 104 H (70-99(Fasting)) mg/dl Lactate (0.4-2.0) mmol/L Calcium 8.1 L (8.6-10.3) mg/dl Magnesium 1.6 L (1.7-2.4) mg/dl Total Bilirubin 0.7 (0.2-1.0) mg/dl Direct Bilirubin 0.1 (0-0.2) mg/dl AST 25 (13-39) U/L ALT 20 (7-52) U/L Alkaline Phosphatase 53 (34-104) U/L Troponin I High Sens 38.1 H (0-14) pg/ml Total Protein 5.8 L (6.0-8.3) gm/dl Albumin 3.4 (3.4-5.0) gm/dl Lipase 8 L (11-82) U/L Procalcitonin (0-0.5) ng/ml Urine Color Urine Appearance (Clear) Urine pH (4.5-7.5) Ur Specific Hadley (1.000-1.030) Urine Protein (Negative) Urine Glucose (UA) (Negative) Urine Ketones (Negative) Urine Blood (Negative) Urine Nitrite (Negative) Urine Bilirubin (Negative) Urine Urobilinogen (Negative) Ur Leukocyte Esterase (Negative) Urine WBC (Auto) (0-5) /hpf Urine RBC (Auto) (0-4) /hpf U Hyaline Cast (Auto) (0-5) /lpf U Epithel Cells (Auto) (0-5) /lpf Urine Bacteria (Auto) (Negative) SARS-CoV-2 (PCR) (Negative) Influenza Type A (PCR) (Neg) Influenza Type B (PCR) (Neg) RSV (RT-PCR) (Neg) 03/05/23 03/05/23 03/05/23 Range/Units 16:29 16:29 16:37 WBC (4.8-10.8) K/ul RBC (4.20-5.40) M/uL Hgb (12.0-16.0) g/dl Hct (37.0-47.0) % MCV (80.0-100.0) fL MCH (25.0-34.0) pg MCHC (32.0-36.0) g/dL RDW Std Deviation (36.4-46.3) fL RDW Coeff of Tiffanie (11.5-14.5) % Plt Count (130-400) K/uL MPV (9.4-12.4) fL Immature Gran % (Auto) % Neut % (Auto) % Lymph % (Auto) % [place] % (Auto) % Eos % (Auto) % Baso % (Auto) % Neut # (Auto) (1.40-6.50) K/uL Lymph # (Auto) (1.2-3.4) K/uL [place] # (Auto) (0.11-0.59) K/uL Eos # (Auto) (0-0.50) K/uL Baso # (Auto) (0-0.2) K/uL Immature Gran # (Auto) (0.01-0.20) K/uL Toxic Vacuolation PT (9.0-12.0) Seconds INR (0.9-1.1) APTT (21.0-31.0) Seconds PTT Ratio VBG pH 7.40 (7.36-7.41) VBG pCO2 50 (38-50) mmHg VBG pO2 21 mmHg VBG HCO3 31 mmol/L VBG O2 Saturation < 60.0 % VBG Base Excess 5.0 mEq/L Sodium (136-145) mmol/L Potassium (3.5-5.1) mmol/L Chloride (98-107) mmol/L Carbon Dioxide (21-32) mmol/L Anion Gap (3-11) BUN (6-23) mg/dl Creatinine (0.6-1.2) mg/dl Est Cr Clr Drug Dosing ml/min Est GFR ( Amer) ml/min Est GFR (Non-Af Amer) ml/min BUN/Creatinine Ratio (10-20) Glucose (70-99(Fasting)) mg/dl Lactate 1.2 (0.4-2.0) mmol/L Calcium (8.6-10.3) mg/dl Magnesium (1.7-2.4) mg/dl Total Bilirubin (0.2-1.0) mg/dl Direct Bilirubin (0-0.2) mg/dl AST (13-39) U/L ALT (7-52) U/L Alkaline Phosphatase (34-104) U/L Troponin I High Sens (0-14) pg/ml Total Protein (6.0-8.3) gm/dl Albumin (3.4-5.0) gm/dl Lipase (11-82) U/L Procalcitonin 0.14 (0-0.5) ng/ml Urine Color Urine Appearance (Clear) Urine pH (4.5-7.5) Ur Specific [place] (1.000-1.030) Urine Protein (Negative) Urine Glucose (UA) (Negative) Urine Ketones (Negative) Urine Blood (Negative) Urine Nitrite (Negative) Urine Bilirubin (Negative) Urine Urobilinogen (Negative) Ur Leukocyte Esterase (Negative) Urine WBC (Auto) (0-5) /hpf Urine RBC (Auto) (0-4) /hpf U Hyaline Cast (Auto) (0-5) /lpf U Epithel Cells (Auto) (0-5) /lpf Urine Bacteria (Auto) (Negative) SARS-CoV-2 (PCR) (Negative) Influenza Type A (PCR) (Neg) Influenza Type B (PCR) (Neg) RSV (RT-PCR) (Neg) 03/05/23 03/05/23 03/05/23 Range/Units 16:40 19:19 20:09 WBC (4.8-10.8) K/ul RBC (4.20-5.40) M/uL Hgb (12.0-16.0) g/dl Hct (37.0-47.0) % MCV (80.0-100.0) fL MCH (25.0-34.0) pg MCHC (32.0-36.0) g/dL RDW Std Deviation (36.4-46.3) fL RDW Coeff of Tiffanie (11.5-14.5) % Plt Count (130-400) K/uL MPV (9.4-12.4) fL Immature Gran % (Auto) % Neut % (Auto) % Lymph % (Auto) % [place] % (Auto) % Eos % (Auto) % Baso % (Auto) % Neut # (Auto) (1.40-6.50) K/uL Lymph # (Auto) (1.2-3.4) K/uL [place] # (Auto) (0.11-0.59) K/uL Eos # (Auto) (0-0.50) K/uL Baso # (Auto) (0-0.2) K/uL Immature Gran # (Auto) (0.01-0.20) K/uL Toxic Vacuolation PT (9.0-12.0) Seconds INR (0.9-1.1) APTT (21.0-31.0) Seconds PTT Ratio VBG pH (7.36-7.41) VBG pCO2 (38-50) mmHg VBG pO2 mmHg VBG HCO3 mmol/L VBG O2 Saturation % VBG Base Excess mEq/L Sodium (136-145) mmol/L Potassium (3.5-5.1) mmol/L Chloride (98-107) mmol/L Carbon Dioxide (21-32) mmol/L Anion Gap (3-11) BUN (6-23) mg/dl Creatinine (0.6-1.2) mg/dl Est Cr Clr Drug Dosing ml/min Est GFR ( Amer) ml/min Est GFR (Non-Af Amer) ml/min BUN/Creatinine Ratio (10-20) Glucose (70-99(Fasting)) mg/dl Lactate (0.4-2.0) mmol/L Calcium (8.6-10.3) mg/dl Magnesium (1.7-2.4) mg/dl Total Bilirubin (0.2-1.0) mg/dl Direct Bilirubin (0-0.2) mg/dl AST (13-39) U/L ALT (7-52) U/L Alkaline Phosphatase (34-104) U/L Troponin I High Sens 40.0 H (0-14) pg/ml Total Protein (6.0-8.3) gm/dl Albumin (3.4-5.0) gm/dl Lipase (11-82) U/L Procalcitonin (0-0.5) ng/ml Urine Color Yellow Urine Appearance Clear (Clear) Urine pH 8.0 H (4.5-7.5) Ur Specific [place] 1.020 (1.000-1.030) Urine Protein Negative (Negative) Urine Glucose (UA) Negative (Negative) Urine Ketones Trace H (Negative) Urine Blood Negative (Negative) Urine Nitrite Positive A (Negative) Urine Bilirubin Negative (Negative) Urine Urobilinogen Negative (Negative) Ur Leukocyte Esterase Negative (Negative) Urine WBC (Auto) 0 (0-5) /hpf Urine RBC (Auto) 0-4 (0-4) /hpf U Hyaline Cast (Auto) 0 (0-5) /lpf U Epithel Cells (Auto) 0-5 (0-5) /lpf Urine Bacteria (Auto) 4+ H (Negative) SARS-CoV-2 (PCR) NEGATIVE (Negative) Influenza Type A (PCR) Negative (Neg) Influenza Type B (PCR) Negative (Neg) RSV (RT-PCR) Negative (Neg) Imaging Data Attestation: I personally reviewed and interpreted this imaging study as follows: My Impression: Chest x-ray negative. Airway clear. No pneumothorax. No consolidation. No cardiomegaly or cephalization.. No free air under the diaphragm. No fractures of the skeletal structures. Radiologist's Impression: Chest X-Ray 03/05/23 16:18 XR chest 1V portable CLINICAL HISTORY: Sepsis COMPARISON STUDY: Chest radiograph October 21, 2022. Chest MRI January 04, 2022. FINDINGS: Right shoulder arthroplasty is incidentally noted. There is no pneumothorax or pleural effusion. Mild elevation of left hemidiaphragm is unc hanged. S-shaped scoliosis of the thoracolumbar spine is incidentally noted. A hiatal hernia is again noted. Cardiomediastinal silhouette is stable. Interstitial prominence is unchanged. There has been no significant change in appearance of the chest. Minimal left basilar opacity favors atelectasis. IMPRESSION: No acute cardiopulmonary findings. No change in appearance of the chest. ACT 112: Negative or not required by law. Electronically signed by: Scar Holden M.D. 03/05/2023 5:09 PM Abdomen/Pelvis CT 03/05/23 16:19 CT OF THE ABDOMEN AND PELVIS WITH CONTRAST CLINICAL HISTORY: Abdominal pain. COMPARISON STUDY: CT of the abdomen and pelvis May 13, 2022. TECHNIQUE: Following IV administration of 84 mL of Optiray, axial images of the abdomen and pelvis were obtained from the lung bases to the proximal femurs. Images were reviewed in the axial, sagittal, and coronal planes. IV contrast was administered without complication. Automated exposure control was utilized for the study. A dose lowering technique was utilized adhering to the principles of ALARA. CT DOSE: 264.73 mGy.cm FINDINGS: Moderate-sized hiatal hernia is noted. This was shown on prior CT. No pneumatosis, free air or portal venous gas is present. IVC filter is in place. Intrathecal catheter is noted. The liver, spleen, adrenal glands and pancreas are unremarkable. There is moderate bilateral hydroureteronephrosis. This is related to the bladder given the irregular thickened trabeculated bladder wall. Bladder is mildly distended. There is no evidence for a bowel obstruction. The appendix is not visualized. The caliber and wall thickness of small and large bowel are normal. Major vasculature is patent. 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 Left hip arthroplasty is noted. No acute fractures are identified within the visualized skeletal structures. Lumbar spine levoscoliosis. Water attenuation bilateral renal lesions reflect cysts. IMPRESSION: 1. No bowel obstruction. No bowel wall thickening. 2. Moderate bilateral hydroureteronephrosis which is likely related to bladder given the thickened, irregular trabeculated bladder wall. 3. Moderate-sized hiatal hernia, unchanged. ACT 112: Negative or not required by law. Electronically signed by: Scar Holden M.D. 03/05/2023 6:32 PM ECG Data Attestation: I personally reviewed and interpreted this ECG as follows: Indication: abdominal pain Rate (beats per minute): 104 Rhythm: sinus tachycardia Findings: + PVC; no ST depression, no ST elevation or no prolonged QT Additional Comments: QRS 62 MDM Narrative 1618: The patient was evaluated in room C1. A complete history and physical exam was performed Cardiac monitoring: An order was placed for continuous cardiac monitoring. The monitor shows a rate of 100 with sinus rhythm interpreted by wv Sepsis protocols initiated. 2114: Patient remains tachycardic. On reassessment no pain on palpation of the abdomen. Labs show white blood cell count of 6.56 hemoglobin 11.8 platelet count is stable. Coagulation studies within normal limits. Venous blood gas within normal limits. Lactic acid within normal limits. Electrolytes and renal function within normal limits. Procalcitonin negative. Urinalysis concerning for UTI. COVID and RSV and influenza negative. CT abdomen pelvis shows no bowel obstruction moderate hydronephrosis likely related to the thickened bladder wall. Chest x-ray negative. Patient's initial troponin is 38.1. Delta troponin is 40. Patient has a chronically elevated troponin and this is better than it was in September 2022 however higher than it was in April 2022. I had a long discussion with the patient and family members at bedside. We did discuss the possibility of outpatient follow-up with outpatient change of oral antibiotics however given the patient's persistent tachycardia, history of sepsis, failed outpatient treatment with oral antibiotics, is thought to be more prudent to keep the patient in the hospital overnight continue IV hydration give IV antibiotics and see if the patient needs to be evaluated cardiology in the morning. Discussed with Dr. Cecil Ruiz hospitalist who will evaluate the patient for admission. Impression & Plan Elevated troponin, Acute UTI Discharge Plan Visit Data Chief Complaint: Nausea Stated Complaint: FEVER, NAUSEA, DIARRHEA ED Provider: Asad Johnson Discharge Problem: Elevated troponin, Acute UTI Patient Disposition: Being Evaluated by Hospitalist Forms Stand Alone Forms: [employer] Prescriptions Prescriptions: No Action prednisone 10 mg tablet 10 mg PO QAM oxybutynin chloride 15 mg tablet extended release 24hr 15 mg PO QAM cholecalciferol (vitamin D3) 1,000 unit capsule 1,000 units PO QAM escitalopram oxalate [Lexapro] 20 mg tablet 20 mg PO QAM baclofen 10 mg tablet 10 mg PO TID PRN (Reason: for spasms) Aubagio 14 mg tablet 14 mg PO QPM tizanidine [Zanaflex] 4 mg tablet 4 mg PO QID Rx Instructions: MUST BE NAME BRAND sucralfate [Carafate] 100 mg/mL suspension 10 ml PO QID Hair,Skin and Nails Tablet 1 tab PO QAM atorvastatin [Lipitor] 20 mg tablet 20 mg PO QAM doxycycline hyclate 50 mg capsule 50 mg PO Q OTHER DAY aspirin 81 mg Tablet 81 mg PO DAILY azelaic acid 15 % gel 1 applic TOPICAL DAILY omeprazole 40 mg capsule,delayed release(DR/EC) 40 mg PO QAM Eliquis 5 mg tablet 5 mg PO BID Qty: 60 0RF clopidogrel 75 mg Tablet 75 mg PO QAM Qty: 30 1RF amlodipine [Norvasc] 5 mg Tablet 5 mg PO QAM Qty: 30 1RF Referrals Referrals: Simi Hernandez CRNP [Primary Care Provider] -
[2023-03-05] MEDS ORDERED: cefTRIAXone SODIUM 1 GM ADDVIAL IV STA (21:01)
[2023-03-05] MEDS ORDERED: cefTRIAXone SODIUM 1,000 MG in DEXTROSE 5% AD-VAN 50 ML IV STA (21:06)
[2023-03-05] MEDS ORDERED: dilTIAZem HCl 5 MG/ML 5 ML VIAL IV ONE ×2 (21:31→21:35)
[2023-03-05] MEDS ORDERED: LACTATED RINGER'S 1,000 ML IV ONE (21:33)
[2023-03-05] MEDS ORDERED: STAT IV Infusion **Titration per Protocol STA ×2 (21:35→22:40)
--- NOTE | 2023-03-05 21:37 | History & Physical Report ---
Date of Service March 05, 2023 Assessment & Plan (1) Hypotension: Plan: Secondary to rapid A-fib secondary to sepsis secondary to complicated UTI, hx recurrent UTIs, neurogenic bladder secondary to MS, bilateral hydronephrosis noted on CT imaging A-fib, possible recurrence, outpatient cardiology note from March 2021 documents PSVT/possible atrial flutter or A-fib. ? Possible adrenal insufficiency, history MS on chronic prednisone Rx Troponin elevation secondary to illness hx CAD as per records Worsening diarrhea rule out infectious causes hyperlipidemia on statin Rx history of PE DVT status post IVC filter placement on Eliquis L breast cancer status post surgery/radiation Chronic anemia, hemoglobin at baseline chronic pain on baclofen pump past tobacco abuse PCU Stop Cardizem given hypotension Amiodarone bolus followed by infusion Initiate beta-jenaro for rate control once BP improved on amiodarone to facilitate wean from latter infusion Follow troponin, TTE for progression Cardiology consult Re: Recurrent A-fib IVF, Decadron 1 dose now given possible adrenal insufficiency, appropriate to hold Aubagio for now given infection CS, Meropenem (given microbiologic history of Pseudomonas, ESBL E. coli UTI on urine CS) Zuñiga catheter placement for bilateral hydronephrosis for now Urology consult Re: Bilateral hydronephrosis Stool CS, C. difficile DVT prophylaxis. Eliquis Full code Patient daughter requesting updates from providers. Total critical care time was 40 minutes. Patient daughter requesting updates from providers. Ms. Emi Shelby, contact #[phone]. Text document was generated using [employer] voice recognition software. It may contain grammatical or spelling errors. Kindly contact undersigned for clarification of any documentation item in question. History of Present Illness Chief Complaint: Abdominal pain, fever, nausea, diarrhea Primary Care Provider: KEVIN Lema History obtained from patient, family, and records. Medical history significant for CAD, PSVT, hypertension, hyperlipidemia, history of PE DVT status post IVC filter placement on Eliquis, MS on chronic prednisone and Aubagio Rx, history of neurogenic bladder, history ESBL E. coli UTI, L breast cancer status post surgery/radiation, past history L ankle osteomyelitis, chronic anemia (baseline hemoglobin 10-11), rosacea on doxycycline, skin cancer status post surgery, chronic pain on baclofen pump, past tobacco abuse. Last confinement September 2022 for sepsis secondary to complicated UTI. Multiple organisms on urine CS. Patient discharged on cefdinir course. 2 days history of achy lower abdominal pain, nausea symptoms. Worsening watery diarrhea symptoms. Palpitations causing chest discomfort and shortness of breath. Symptoms similar to urine infection from last year as per family. Ceftriaxone administered at the ER. Patient went into rapid A-fib, Heart rate 180s. IV Cardizem boluses and infusion administered at the ER. SBP currently 90s, cardiac rate 130s. MED hx as above : OPERATIONS: She has had left mastectomy, left hip surgery, IVC filter placement, hysterectomy, shoulder surgery, dental surgery, spinal pain pump placement, appendectomy family by fracture surgery FAMILY HISTORY: thyroid cancer, heart disease PERSONAL AND SOCIAL HISTORY: Past tobacco abuse. No chronic intake of alcoholic beverages. 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 Allergies Allergy/AdvReac Type Severity Reaction Status Date / Time No Known Allergies Allergy Verified 11/30/22 14:17 Home Medications Medication Instructions Recorded Confirmed Type cholecalciferol (vitamin D3) 25 1,000 units PO QAM 09/18/18 03/05/23 History mcg (1,000 unit) capsule escitalopram oxalate 20 mg tablet 20 mg PO QAM 09/18/18 03/05/23 History (Lexapro) oxybutynin chloride 15 mg 15 mg PO QAM 09/18/18 03/05/23 History tablet,extended release 24 hr prednisone 10 mg tablet 10 mg PO QAM 09/18/18 03/05/23 History omeprazole 40 mg capsule,delayed 40 mg PO QAM 07/06/21 03/05/23 History release apixaban 5 mg tablet (Eliquis) 5 mg PO BID #60 tabs 07/09/21 03/05/23 Rx teriflunomide 14 mg tablet 14 mg PO QPM 05/13/22 03/05/23 History (Aubagio) tizanidine 4 mg tablet (Zanaflex) 4 mg PO QID PRN Muscle Spasm 05/13/22 03/05/23 History atorvastatin 20 mg tablet (Lipitor) 20 mg PO QAM 08/10/22 03/05/23 History doxycycline hyclate 50 mg capsule 50 mg PO Q OTHER DAY Rosacea 08/10/22 03/05/23 History azelaic acid 15 % topical gel 1 applic topical DAILY 10/21/22 03/05/23 History acetaminophen 500 mg tablet 500 mg PO Q6H PRN Pain 03/05/23 03/05/23 History aspirin 81 mg tablet,delayed 81 mg PO DAILY 03/05/23 03/05/23 History release melatonin 3 mg tablet 3 mg PO HS PRN Insomnia 03/05/23 03/05/23 History multivitamin 1 tab PO DAILY 03/05/23 03/05/23 History Past Med/Surg History Medical History Anemia CAD (coronary artery disease) Non-obstructive per 06/2021 cardiac cath GERD (gastroesophageal reflux disease) controlled, stable per pt History of blood transfusion History of DVT (deep vein thrombosis) ~6 yrs ago History of GI bleed Upper GIB (2019) felt 2/2 NSAID use History of non-ST elevation myocardial infarction (NSTEMI) 06/2021 (had heart cath, no stents) History of pulmonary embolism ~ 6 yrs ago, IVC filter still in place History of recent hospitalization 09/2022 [facility] - sepsis History of supraventricular tachycardia Hx of gastric ulcer 02/2021 HX: breast cancer Left breast cancer with surgery and chemo/radiation-left arm restriction Hypertension controlled, stable per pt Limb alert care status left arm Multiple sclerosis Follows with Dr. Walker/[facility] Stable Neurogenic bladder SELF CATH 2-3 X'S PER DAY *RECENT HOSPITALIZATION FOR UTI Osteoarthritis of right shoulder Osteoporosis Raynaud disease Surgical History H/O left mastectomy with lymph node removal>LEFT ARM RESTRICTION History of appendectomy History of cardiac cath Cardiac cath (07/06/21; [facility]) > Right dominant coronary system. No evidence of aortic stenosis. Normal left ventricular filling pressures. Nonobstructive disease involving the ostial LAD. No evidence of acute coronary syndrome. Approximately 50% ostial stenosis of the LAD. There was some very mild disease at the ostium of the left circumflex. Recommendations: Medical management. History of colonoscopy History of esophagogastroduodenoscopy (EGD) History of open reduction and internal fixation (ORIF) procedure "left hip" History of tooth extraction Presence of intrathecal pump baclofen pump in place--status post revision/replacement 08/10/2022 S/P IVC filter S/P partial hysterectomy S/p reverse total shoulder arthroplasty right: 05/25/22 LMA#4. No postop issues per anesthesia progress note. Family History Mother Heart disorder Other No family history of adverse response to anesthesia Social History Smoking Status: Never smoker packs per day: 1; Second Hand Exposure: No; Hx Alcohol Use: No Hx Substance Use: No Preferred Language: Frisian Communication Ability: Effective Visual Impairment: No Limitations Hearing Ability: Normal Monorail Helper Required: No Beliefs That Will Affect Care: None marital status: / Current Living Situation: Alone Current Living Situation Comment: home alone- uses walker but needs a new one current occupational status: retired How many Children do You have: 3 Other Information That Helps Us Care for You: No Feels Safe at Home: Yes Safety Concerns: Feels Safe At This Time Childhood Exposure to Second-Hand Smoke: Yes Assistive Devices: Walker and Wheelchair Review of Systems Review of Systems: As per HPI, all other systems reviewed and negative Physical Exam Physical Exam: GENERAL: Comfortable, pleasant, slightly hard of hearing, no respiratory distress SKIN: Pallor, warm HEENT: Pale palpebral conjunctivae, no ptosis, dry buccal mucosa NECK : Supple, no tenderness CHEST : CTA, no tenderness HEART : Irregular, tachycardic, no obvious murmurs ABDOMEN: Some distention, hypogastric tenderness EXTREMITIES : No LE swelling/tenderness, no other conspicuous deformities noted NEUROLOGIC : Coherent, no facial asymmetry, mild hearing impairment, no other gross focality Results & Data Results & Data Vital Signs (Past 12 Hours) Vital Signs Temp Pulse Pulse Resp BP Pulse Ox O2 Del Method 03/05/23 21:00 113 H 15 03/05/23 21:00 141/97 H 03/05/23 20:45 111 H 16 03/05/23 20:30 111 H 27 H 03/05/23 20:30 160/94 H 03/05/23 20:15 115 H 14 03/05/23 20:00 112 H 17 93 03/05/23 20:00 166/102 H 03/05/23 19:45 112 H 17 92 03/05/23 19:30 107 H 16 95 03/05/23 19:30 152/119 H 03/05/23 21:04 115 H 03/05/23 19:18 167/95 H 03/05/23 19:18 110 H 27 H 93 03/05/23 19:15 109 H 21 94 03/05/23 19:00 109 H 20 94 03/05/23 19:00 157/104 H 03/05/23 18:45 110 H 16 95 Room Air 03/05/23 18:30 110 H 24 03/05/23 18:30 174/108 H 03/05/23 18:15 112 H 17 95 03/05/23 18:14 163/102 H 03/05/23 18:14 110 H 18 94 03/05/23 17:45 108 H 20 95 03/05/23 17:45 133/82 03/05/23 17:30 102 H 20 97 03/05/23 17:30 115/75 03/05/23 17:15 108 H 17 03/05/23 17:15 124/73 03/05/23 17:00 107 H 22 95 03/05/23 17:00 115/67 03/05/23 16:57 101 H 18 100 03/05/23 17:06 102 H 03/05/23 16:00 106 H 18 03/05/23 16:03 36.7 C 104 H 16 124/75 93 Room Air Laboratory Results Laboratory Results WBC 6.56 K/ul (4.8-10.8) 03/05/23 16:29 RBC 4.09 M/uL (4.20-5.40) L 03/05/23 16:29 Hgb 11.8 g/dl (12.0-16.0) L 03/05/23 16:29 Hct 37.0 % (37.0-47.0) 03/05/23 16:29 MCV 90.5 fL (80.0-100.0) 03/05/23 16:29 MCH 28.9 pg (25.0-34.0) 03/05/23 16:29 MCHC 31.9 g/dL (32.0-36.0) L 03/05/23 16:29 RDW Std Deviation 48.3 fL (36.4-46.3) H 03/05/23 16:29 RDW Coeff of T[place] 14.7 % (11.5-14.5) H 03/05/23 16: Plt Count 259 K/uL (130-400) 03/05/23 16: MPV 10.6 fL (9.4-12.4) 03/05/23 16: Immature Gran % (Auto) 0.3 % 03/05/23 16: Neut % (Auto) 92.0 % 03/05/23 16: Lymph % (Auto) 2.0 % 03/05/23 16: [place] % (Auto) 4.6 % 03/05/23 16: Eos % (Auto) 0.6 % 03/05/23 16: Baso % (Auto) 0.5 % 03/05/23: Neut # (Auto) 6.04 K/uL (1.40-6.50) 03/05/23 16: Lymph # (Auto) 0.13 K/uL (1.2-3.4) L 03/05/23 16: [place] # (Auto) 0.30 K/uL (0.11-0.59) 03/05/23 16: Eos # (Auto) 0.04 K/uL (0-0.50) 03/05/23 16: Baso # (Auto) 0.03 K/uL (0-0.2) 03/05/23 16: Immature Gran # (Auto) 0.02 K/uL (0.01-0.20) 03/05/23 16: Toxic Vacuolation 1+ 03/05/23 16: PT 11.4 Seconds (9.0-12.0) 03/05/23 16: INR 1.1 (0.9-1.1) 03/05/23 16: APTT 24.5 Seconds (21.0-31.0) 03/05/23 16: PTT Ratio 0.9 03/05/23 16: VBG pH 7.40 (7.36-7.41) 03/05/23 16:37 VBG pCO2 50 mmHg (38-50) 03/05/23 16:37 VBG pO2 21 mmHg 03/05/23 16:37 VBG HCO3 31 mmol/L 03/05/23 16:37 VBG O2 Saturation < 60.0 % 03/05/23 16:37 VBG Base Excess 5.0 mEq/L 03/05/23 16:37 Sodium 141 mmol/L (136-145) 03/05/23 16:29 Potassium 3.8 mmol/L (3.5-5.1) 03/05/23 16:29 Chloride 105 mmol/L (98-107) 03/05/23 16:29 Carbon Dioxide 30 mmol/L (21-32) 03/05/23 16:29 Anion Gap 6 (3-11) 03/05/23 16:29 BUN 19 mg/dl (6-23) 03/05/23 16:29 Creatinine 0.80 mg/dl (0.6-1.2) 03/05/23 16:29 Est Cr Clr Drug Dosing 60.0 ml/min 03/05/23 16:29 Est GFR ( Amer) 86.6 ml/min 03/05/23 16:29 Est GFR (Non-Af Amer) 74.7 ml/min 03/05/23 16:29 BUN/Creatinine Ratio 23.8 (10-20) H 03/05/23 16:29 Glucose 104 mg/dl (70-99(Fasting)) H 03/05/23 16:29 Lactate 1.2 mmol/L (0.4-2.0) 03/05/23 16:29 Calcium 8.1 mg/dl (8.6-10.3) L 03/05/23 16:29 Magnesium 1.6 mg/dl (1.7-2.4) L 03/05/23 16:29 Total Bilirubin 0.7 mg/dl (0.2-1.0) 03/05/23 16:29 Direct Bilirubin 0.1 mg/dl (0-0.2) 03/05/23 16:29 AST 25 U/L (13-39) 03/05/23 16:29 ALT 20 U/L (7-52) 03/05/23 16:29 Alkaline Phosphatase 53 U/L (34-104) 03/05/23 16:29 Troponin I High Sens 40.0 pg/ml (0-14) H 03/05/23 20:09 Total Protein 5.8 gm/dl (6.0-8.3) L 03/05/23 16:29 Albumin 3.4 gm/dl (3.4-5.0) 03/05/23 16:29 Lipase 8 U/L (11-82) L 03/05/23 16:29 Procalcitonin 0.14 ng/ml (0-0.5) 03/05/23 16:29 Urine Color Yellow 03/05/23 19:19 Urine Appearance Clear (Clear) 03/05/23 19:19 Urine pH 8.0 (4.5-7.5) H 03/05/23 19:19 Ur Specific [place] 1.020 (1.000-1.030) 03/05/23 19:19 Urine Protein Negative (Negative) 03/05/23 19:19 Urine Glucose (UA) Negative (Negative) 03/05/23 19:19 Urine Ketones Trace (Negative) H 03/05/23 19:19 Urine Blood Negative (Negative) 03/05/23 19:19 Urine Nitrite Positive (Negative) A 03/05/23 19:19 Urine Bilirubin Negative (Negative) 03/05/23 19:19 Urine Urobilinogen Negative (Negative) 03/05/23 19:19 Ur Leukocyte Esterase Negative (Negative) 03/05/23 19:19 Urine WBC (Auto) 0 /hpf (0-5) 03/05/23 19:19 Urine RBC (Auto) 0-4 /hpf (0-4) 03/05/23 19:19 U Hyaline Cast (Auto) 0 /lpf (0-5) 03/05/23 19:19 U Epithel Cells (Auto) 0-5 /lpf (0-5) 03/05/23 19:19 Urine Bacteria (Auto) 4+ (Negative) H 03/05/23 19:19 SARS-CoV-2 (PCR) NEGATIVE (Negative) 03/05/23 16:40 Influenza Type A (PCR) Negative (Neg) 03/05/23 16:40 Influenza Type B (PCR) Negative (Neg) 03/05/23 16:40 RSV (RT-PCR) Negative (Neg) 03/05/23 16:40 Impressions Chest X-Ray 03/05/23 16:18 XR chest 1V portable CLINICAL HISTORY: Sepsis COMPARISON STUDY: Chest radiograph October 21, 2022. Chest MRI January 04, 2022. FINDINGS: Right shoulder arthroplasty is incidentally noted. There is no pneumothorax or pleural effusion. Mild elevation of left hemidiaphragm is unchanged. S-shaped scoliosis of the thoracolumbar spine is incidentally noted. A hiatal hernia is again noted. Cardiomediastinal silhouette is stable. Interstitial prominence is unchanged. There has been no significant change in appearance of the chest. Minimal left basilar opacity favors atelectasis. IMPRESSION: No acute cardiopulmonary findings. No change in appearance of the chest. ACT 112: Negative or not required by law. Electronically signed by: Scar Holden M.D. 03/05/2023 5:09 PM Abdomen/Pelvis CT 03/05/23 16:19 CT OF THE ABDOMEN AND PELVIS WITH CONTRAST CLINICAL HISTORY: Abdominal pain. COMPARISON STUDY: CT of the abdomen and pelvis May 13, 2022. TECHNIQUE: Following IV administration of 84 mL of Optiray, axial images of the abdomen and pelvis were obtained from the lung bases to the proximal femurs. Images were reviewed in the axial, sagittal, and coronal planes. IV contrast was administered without complication. Automated exposure control was utilized for the study. A dose lowering technique was utilized adhering to the principles of ALARA. CT DOSE: 264.73 mGy.cm FINDINGS: Moderate-sized hiatal hernia is noted. This was shown on prior CT. No pneumatosis, free air or portal venous gas is present. IVC filter is in place. Intrathecal catheter is noted. The liver, spleen, adrenal glands and pancreas are unremarkable. There is moderate bilateral hydroureteronephrosis. This is related to the bladder given the irregular thickened trabeculated bladder wall. Bladder is mildly distended. There is no evidence for a bowel obstruction. The appendix is not visualized. The caliber and wall thickness of small and large bowel are normal. Major vasculature is patent. 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 Left hip arthroplasty is noted. No acute fractures are identified within the visualized skeletal structures. Lumbar spine levoscoliosis. Water attenuation bilateral renal lesions reflect cysts. IMPRESSION: 1. No bowel obstruction. No bowel wall thickening. 2. Moderate bilateral hydroureteronephrosis which is likely related to bladder given the thickened, irregular trabeculated bladder wall. 3. Moderate-sized hiatal hernia, unchanged. ACT 112: Negative or not required by law. Electronically signed by: Scar Holden M.D. 03/05/2023 6:32 PM Diagnostic Findings EKG as per my interpretation : Rate 105, sinus tachycardia, normal axis, septal infarct, no ischemia, PVCs
[2023-03-05] MEDS ORDERED: CEFEPIME 2,000 MG/20 ML VIAL IV STA (21:38)
[2023-03-05] MEDS ORDERED: MEROPENEM 500 MG in SYRINGE 0 ML IV STA (21:42)
[2023-03-05] MEDS ORDERED: dilTIAZem HCL 125 MG in DEXTROSE 5% 100 ML IV SCH (21:45)
[2023-03-05] MEDS ORDERED: METOPROLOL TARTRATE 25 MG TAB PO STA (22:03)
[2023-03-05] MEDS ORDERED: AMIODARONE IV BOLUS & DRIP IV STA (22:40)
[2023-03-05] MEDS ORDERED: AMIODARONE / D5W 150 MG/100 ML BAG IV STA (22:40)
[2023-03-05] MEDS ORDERED: 0.2 MICRON FILTER SET 1 EACH IV STA (22:40)
[2023-03-05] MEDS: MAGNESIUM SULFATE / D5W 1 GM/100 ML BAG IV SCH (22:41)
[2023-03-05] MEDS ORDERED: POTASSIUM CHLORIDE PWD 20 MEQ PACK PO STA (22:41)
[2023-03-05] MEDS ORDERED: dexAMETHasone 4 MG in SYRINGE 0 ML IV ONE (22:41)
[2023-03-05] MEDS ORDERED: SODIUM CHLORIDE 0.9% 500 ML IV SCH (22:45)
[2023-03-05] MEDS ORDERED: DEXAMETHASONE SOD INJ 4 MG/ML VIAL IV STA (22:48)
[2023-03-05] MEDS ORDERED: AMIODARONE / D5W 360 MG/200 ML BAG IV ONE (23:00)
[2023-03-06] MEDS ORDERED: PROMETHAZINE HCL 6.25 MG in SODIUM CHLORIDE 0.9% 50 ML IV PRN (00:54)
[2023-03-06] MEDS ORDERED: METOPROLOL TARTRATE 25 MG TAB PO STA (01:40)
[2023-03-06] MEDS: MAGNESIUM SULFATE / D5W 1 GM/100 ML BAG IV SCH (01:45)
[2023-03-06] MEDS: APIXABAN 5 MG TABLET PO SCH ×3 (02:16→21:55)
[2023-03-06] MEDS ORDERED: METOPROLOL TARTRATE 1 MG/ML VIAL IV STA (03:36)
[2023-03-06] MEDS: MEROPENEM 500 MG in SYRINGE 0 ML IV SCH ×4 (04:09→21:55)
[2023-03-06] MEDS ORDERED: dexAMETHasone 4 MG in SYRINGE 0 ML IV ONE (04:45)
[2023-03-06] MEDS ORDERED: AMIODARONE / D5W 360 MG/200 ML BAG IV SCH (05:00)
[2023-03-06 05:06] LABS: Hematocrit (blood only) 33.9 % (37.0-47.0); Hemoglobin 10.9 g/dl (12.0-16.0); Mean Corpuscular Hgb Conc 32.2 g/dL (32.0-36.0); Mean Corpuscular Volume 90.2 fL (80.0-100.0); Mean Platelet Volume 10.6 fL (9.4-12.4); Platelet Count 256 K/uL (130-400); RDW Coefficient of Variation 14.6 % (11.5-14.5); RDW Standard Deviation 47.8 fL (36.4-46.3); Red Blood Count 3.76 M/uL (4.20-5.40); White Blood Count 4.46 K/ul (4.8-10.8)
[2023-03-06 05:20] LABS: BUN Creatinine Ratio 19.2 (10-20); Calcium 7.6 mg/dl (8.6-10.3); Creatinine Clr Calc Pharmacy 65.8 ml/min; Est GFR (African American) 96.7 ml/min; Est GFR (Non-African American) 83.4 ml/min; Magnesium 2.3 mg/dl (1.7-2.4); Potassium 3.9 mmol/L (3.5-5.1)
[2023-03-06 05:36] LABS: Immature Granulocytes # (auto) 0.01 K/uL (0.01-0.20); Immature Granulocytes % (auto) 0.2 %; Lymphocytes # (auto) 0.12 K/uL (1.2-3.4); Lymphocytes % (auto) 2.7 %; Monocytes # (auto) 0.11 K/uL (0.11-0.59); Monocytes % (auto) 2.5 %; Neutrophils # (auto) 4.22 K/uL (1.40-6.50); Neutrophils % (auto) 94.6 %
[2023-03-06] MEDS ORDERED: NSS + 20MEQ KCL 20 MEQ/1,000 ML BAG IV ONE (05:45)
[2023-03-06 06:01] LABS: Albumin Level 3.2 gm/dl (3.4-5.0)
[2023-03-06] MEDS ORDERED: CALCIUM GLUCONATE 10% 1,000 MG in DEXTROSE 5% 50 ML IV ONE (07:24)
[2023-03-06] MEDS ORDERED: STAT IV STA (07:24)
--- NOTE | 2023-03-06 08:19 | Electrocardiogram Report ---
Test Reason : Blood Pressure : / mmHG Vent. Rate : 104 BPM Atrial Rate : 104 BPM P-R Int : 144 ms QRS Dur : 062 ms QT Int : 334 ms P-R-T Axes : 043 001 042 degrees QTc Int : 439 ms Sinus tachycardia with frequent Premature ventricular complexes Left atrial enlargement Old Septal infarct (cited on or before 21-OCT-2022) Abnormal ECG When compared with ECG of 21-OCT-2022 14:23, Premature ventricular complexes are now Present Confirmed by Navneet Sen ([id number]) on 03/06/2023 8:19:05 AM Referred By: REFERRED SELF Confirmed By:Navneet Sen
[2023-03-06] MEDS: ASPIRIN 81 MG ECTAB PO SCH (08:28)
[2023-03-06] MEDS: ATORVASTATIN 20 MG TAB PO SCH (08:29)
[2023-03-06] MEDS: OXYBUTYNIN CHLORIDE XL 5 MG TABCR PO SCH (08:29)
[2023-03-06] MEDS: DOXYCYCLINE HYCLATE 50 MG CAP PO SCH (08:30)
[2023-03-06] MEDS: ESCITALOPRAM OXALATE 20 MG TAB PO SCH (08:30)
[2023-03-06] MEDS: PANTOprazole 40 MG TAB PO SCH (08:31)
[2023-03-06] MEDS: MULTIVITAMIN TAB PO SCH (08:31)
[2023-03-06] MEDS ORDERED: predniSONE 10 MG TABLET PO SCH (09:00)
[2023-03-06] MEDS ORDERED: METOPROLOL TARTRATE 25 MG TAB PO SCH ×2 (09:00→21:00)
[2023-03-06] MEDS: ADVANCED PROBIOTIC 1250 MG CAPSULE PO SCH (09:19)
--- NOTE | 2023-03-06 09:19 | Urology Consultation ---
Date of Consultation March 06, 2023 Assessment & Plan (1) Acute UTI: (2) Multiple sclerosis: (3) Neurogenic bladder: (4) Presence of intrathecal pump: Plan Patient presented with pyelonephritis with incomplete emptying of the bladder. Has neurogenic bladder and utilizes self-catheterization. Had significant distention of bladder with bilateral hydro development. Likely developed a sending infection. Patient is undergoing supportive care with IV antibiotics. All vitals have been reviewed currently he is afebrile has mild hypotension with borderline tachycardia. Has not had a major increase in issues. Is near baseline. Patient has significant neurologic issue at baseline secondary to MS. Has a number of comorbidities associated with it has a white count of 4.46. Creatinine 0.73. Hemoglobin 10.9. All labs have been reviewed. Pertinent values as above. Patient imaging has been reviewed as well interpreted by myself. Signs of bilateral hydronephrosis likely obstruction secondary to neurogenic bladder with large distended bladder. Catheter had been placed which drastically improved drainage. Patient is being monitored with supportive care with IV hydration and antibiotic management. He is maintaining catheter. Will likely need to maintain catheter for next 7 to 10 days and will likely warrant further work-up and investigation. Can likely be done mostly as outpatient. Patient complicated medical and surgical history was reviewed and summarized above all imaging has been reviewed interpreted by myself. Labs and vitals were all reviewed with pertinent values in the HPI and plan section. We will plan to continue my with observation at the outpatient follow-up likely in the next few weeks to discuss further options for management as well as plans for long-term management and continued monitoring. Patiently had previously followed with a urologist at [facility]. Has not been following with them for quite a while. Would likely need to get set up with someone for long-term management and monitoring. Would likely need to consider different options for intermittent catheterization with possible increase in the amount of utilization versus other options. We will plan to maintain catheter for now with plans for outpatient follow-up and work-up. History of Present Illness Attending Physician: Fernando Armenta MD History of Present Illness New consultation for patient with UTI/Pyelo, discomfort, and ill feelings. Patient developed sudden onset of pain into flank going down and radiating into groin and back in waves comes and goes. Can be severe at times. Discussed and reviewed patient's family history for any history of issues, infections, and disease. Also, discussed patient's medical/surgery history especially related to any history of urinary issues or stone disease. Patient was admitted and is undergoing observation with broad spectrum IV antibiotics. Allergies Allergy/AdvReac Type Severity Reaction Status Date / Time No Known Allergies Allergy Verified 11/30/22 14:17 Home Medications Medication Instructions Recorded Confirmed Type cholecalciferol (vitamin D3) 25 1,000 units PO QAM 09/18/18 03/05/23 History mcg (1,000 unit) capsule escitalopram oxalate 20 mg tablet 20 mg PO QAM 09/18/18 03/05/23 History (Lexapro) oxybutynin chloride 15 mg 15 mg PO QAM 09/18/18 03/05/23 History tablet,extended release 24 hr prednisone 10 mg tablet 10 mg PO QAM 09/18/18 03/05/23 History omeprazole 40 mg capsule,delayed 40 mg PO QAM 07/06/21 03/05/23 History release apixaban 5 mg tablet (Eliquis) 5 mg PO BID #60 tabs 07/09/21 03/05/23 Rx teriflunomide 14 mg tablet 14 mg PO QPM 05/13/22 03/05/23 History (Aubagio) tizanidine 4 mg tablet (Zanaflex) 4 mg PO QID PRN Muscle Spasm 05/13/22 03/05/23 History atorvastatin 20 mg tablet (Lipitor) 20 mg PO QAM 08/10/22 03/05/23 History doxycycline hyclate 50 mg capsule 50 mg PO Q OTHER DAY Rosacea 08/10/22 03/05/23 History azelaic acid 15 % topical gel 1 applic topical DAILY 10/21/22 03/05/23 History acetaminophen 500 mg tablet 500 mg PO Q6H PRN Pain 03/05/23 03/05/23 History aspirin 81 mg tablet,delayed 81 mg PO DAILY 03/05/23 03/05/23 History release melatonin 3 mg tablet 3 mg PO HS PRN Insomnia 03/05/23 03/05/23 History multivitamin 1 tab PO DAILY 03/05/23 03/05/23 History Patient History Medical History Anemia CAD (coronary artery disease) Non-obstructive per 06/2021 cardiac cath GERD (gastroesophageal reflux disease) controlled, stable per pt History of blood transfusion History of DVT (deep vein thrombosis) ~6 yrs ago History of GI bleed Upper GIB (2019) felt 2/2 NSAID use History of non-ST elevation myocardial infarction (NSTEMI) 06/2021 (had heart cath, no stents) History of pulmonary embolism ~ 6 yrs ago, IVC filter still in place History of recent hospitalization 09/2022 [facility] - sepsis History of supraventricular tachycardia Hx of gastric ulcer 02/2021 HX: breast cancer Left breast cancer with surgery and chemo/radiation-left arm restriction Hypertension controlled, stable per pt Limb alert care status left arm Multiple sclerosis Follows with Dr. Walker/[facility] Stable Neurogenic bladder SELF CATH 2-3 X'S PER DAY *RECENT HOSPITALIZATION FOR UTI Osteoarthritis of right shoulder Osteoporosis Raynaud disease Surgical History H/O left mastectomy with lymph node removal>LEFT ARM RESTRICTION History of appendectomy History of cardiac cath Cardiac cath (07/06/21; [facility]) > Right dominant coronary system. No evidence of aortic stenosis. Normal left ventricular filling pressures. N onobstructive disease involving the ostial LAD. No evidence of acute coronary syndrome. Approximately 50% ostial stenosis of the LAD. There was some very mild disease at the ostium of the left circumflex. Recommendations: Medical management. History of colonoscopy History of esophagogastroduodenoscopy (EGD) History of open reduction and internal fixation (ORIF) procedure "left hip" History of tooth extraction Presence of intrathecal pump baclofen pump in place--status post revision/replacement 08/10/2022 S/P IVC filter S/P partial hysterectomy S/p reverse total shoulder arthroplasty right: 05/25/22 LMA#4. No postop issues per anesthesia progress note. Family History Mother Heart disorder Other No family history of adverse response to anesthesia Social History Smoking Status: Never smoker packs per day: 1; Second Hand Exposure: No; Hx Alcohol Use: No Hx Substance Use: No Preferred Language: [place] Communication Ability: Effective Visual Impairment: No Limitations Hearing Ability: Normal Street Superintendent Required: No Beliefs That Will Affect Care: None marital status: / Current Living Situation: Alone Current Living Situation Comment: home alone- uses walker but needs a new one current occupational status: retired How many Children do You have: 3 Other Information That Helps Us Care for You: No Feels Safe at Home: Yes Safety Concerns: Feels Safe At This Time Childhood Exposure to Second-Hand Smoke: Yes Assistive Devices: Walker and Wheelchair Review of Systems Review of Systems: All systems reviewed & are unremarkable except as noted in HPI & below Physical Exam Physical Exam: General: Alert and oriented x 3 in no acute distress. Patient with significant neurologic issues at baseline. HEENT: Normocephalic Atraumatic. Inspection normal. Cranial Nerves 2-12 Grossly intact. Nares are clear. Neck is supple. Normal inspection of face. Normal inspection of neck. Neurologic: No deficits on inspection. Baseline for motor function and sensory. Psychologic: Normal affect. Respiratory: Nonlabored. No use of accessory muscles. No tachypnea or dyspnea. Cardiovascular: No tachycardia Skin: [place] and Dry. No rashes or visible lesions. Extremities: Moving without issues. No motor deficits on inspection Abdomen: Moderately distended. No rebound or guarding. Results & Data Vital Signs (Past 12 Hours) Vital Signs Temp Pulse Pulse Resp BP BP BP 03/06/23 07:46 80 03/06/23 07:45 36.5 C 82 18 107/74 03/06/23 03:54 86 90/59 L 03/06/23 03:50 36.4 C L 86 17 90/59 L 03/06/23 01:10 92 H 03/06/23 01:17 03/06/23 00:59 37.3 C 83 16 144/86 H 03/06/23 00:05 97 H 17 03/06/23 00:00 96 H 25 H 03/06/23 00:00 132/95 03/05/23 23:55 98 H 22 03/05/23 23:50 102 H 20 03/05/23 23:45 98 H 21 03/05/23 23:45 132/89 03/05/23 23:40 96 H 20 03/05/23 23:35 103 H 19 03/05/23 23:30 105 H 15 03/05/23 23:30 142/108 H 03/05/23 23:25 104 H 23 03/05/23 23:20 95 H 21 03/05/23 23:15 125 H 20 03/05/23 23:15 122/78 03/05/23 23:10 123 H 19 03/05/23 23:05 152 H 20 03/05/23 23:00 149 H 27 H 03/05/23 23:00 121/92 03/05/23 22:55 147 H 19 03/05/23 22:50 134 H 18 03/05/23 22:45 143 H 22 03/05/23 22:45 99/77 L 03/05/23 22:40 144 H 24 03/05/23 22:35 132 H 17 03/05/23 22:30 136 H 17 03/05/23 22:30 92/66 L 03/05/23 22:26 107/81 03/05/23 22:26 136 H 23 03/05/23 22:25 140 H 24 03/05/23 22:20 134 H 15 03/05/23 22:15 147 H 17 03/05/23 22:10 144 H 23 03/05/23 22:05 137 H 21 03/05/23 22:00 123 H 18 03/05/23 22:00 107/70 03/05/23 21:55 121 H 23 03/05/23 21:51 96/67 L 03/05/23 21:51 138 H 19 03/05/23 21:50 151 H 14 03/05/23 21:48 149 H 15 03/05/23 21:48 100/77 03/05/23 21:45 138 H 19 03/05/23 21:45 86/69 L 03/05/23 21:42 167 H 25 H 03/05/23 21:42 98/67 L 03/05/23 21:40 148 H 21 03/05/23 21:38 141 H 20 03/05/23 21:38 91/68 L 03/05/23 21:36 95/65 L 03/05/23 21:36 146 H 22 03/05/23 21:35 132 H 21 03/05/23 21:30 169 H 17 03/05/23 21:30 103/78 03/05/23 21:25 176 H 23 03/05/23 21:20 107 H 25 H Pulse Ox O2 Del Method 04/09/23 07:46 03/06/23 07:45 92 Room Air 03/06/23 03:54 03/06/23 03:50 95 Room Air 03/06/23 01:10 03/06/23 01:17 Room Air 03/06/23 00:59 94 Room Air 03/06/23 00:05 93 03/06/23 00:00 94 03/06/23 00:00 03/05/23 23:55 92 03/05/23 23:50 94 03/05/23 23:45 93 03/05/23 23:45 03/05/23 23:40 91 03/05/23 23:35 92 03/05/23 23:30 94 03/05/23 23:30 03/05/23 23:25 91 03/05/23 23:20 91 03/05/23 23:15 90 03/05/23 23:15 03/05/23 23:10 90 03/05/23 23:05 91 03/05/23 23:00 94 03/05/23 23:00 03/05/23 22:55 93 03/05/23 22:50 93 03/05/23 22:45 92 03/05/23 22:45 03/05/23 22:40 93 03/05/23 22:35 94 03/05/23 22:30 93 03/05/23 22:30 03/05/23 22:26 03/05/23 22:26 91 03/05/23 22:25 94 03/05/23 22:20 03/05/23 22:15 03/05/23 22:10 94 03/05/23 22:05 92 03/05/23 22:00 91 03/05/23 22:00 03/05/23 21:55 03/05/23 21:51 03/05/23 21:51 03/05/23 21:50 03/05/23 21:48 03/05/23 21:48 03/05/23 21:45 03/05/23 21:45 03/05/23 21:42 03/05/23 21:42 03/05/23 21:40 03/05/23 21:38 94 03/05/23 21:38 03/05/23 21:36 03/05/23 21:36 94 03/05/23 21:35 94 03/05/23 21:30 96 03/05/23 21:30 03/05/23 21:25 03/05/23 21:20 PG Care Time/CCT Total # of Minutes Spent Total Time Spent with Patient: Total time spent is greater than 50% in coordination of care (as documented) at patient's floor/unit and/or counseling patient: Coding Level of Care Code 04962 INT INP/OBS CARE 3/75MIN Diagnoses Acute UTI N39.0 Multiple sclerosis G35 Neurogenic bladder N31.9 Presence of intrathecal pump Z96.89
--- NOTE | 2023-03-06 11:34 | Cardiology Consultation ---
Date of Consultation March 06, 2023 Assessment & Plan (1) Paroxysmal atrial fibrillation with RVR: (2) CAD (coronary artery disease): (3) History of DVT (deep vein thrombosis): (4) UTI (urinary tract infection): Plan 72-year-old female admitted with complicated UTI and paroxysmal atrial fibrillation with rapid ventricular response. Patient spontaneously converted to sinus rhythm. Hypotension noted overnight. Treated with IV diltiazem in the ER followed by intravenous amiodarone and oral metoprolol by the hospitalist service. Blood pressure alesha borderline hypotensive however improved this morning. Recommend addition of low-dose beta-jenaro, metoprolol tartrate 12.5 mg twice daily. Continue oral anticoagulation with Eliquis. Replace electrolytes as indicated. History of Present Illness Reason for Consultation: Paroxysmal atrial fibrillation Requesting Physician: Dr. Armenta Attending Physician: Fernando Armenta MD History of Present Illness 72-year-old female present to the emergency department secondary to abdominal discomfort, nausea, fever, and diarrhea. Diagnosed with complicated cystitis with bladder distention and hydronephrosis. Zuñiga catheter placed. Patient converted to atrial fibrillation rapid ventricular response in the emergency department. Describes associated palpitations and dyspnea. She was treated with IV amiodarone and subsequent converted to normal sinus rhythm. She has remained in sinus rhythm overnight. Medical history listed below. Currently, patient is resting comfortably. No recurrent palpitations this morning. Telemetry reveals sinus rhythm in the 70s. No chest discomfort or unusual shortness of breath. No history of atrial fibrillation per chart review. Continues to note mild abdominal discomfort and intermittent nausea. Preserved LV function without significant valvular pathology per most recent echocardiogram in September 2022. Cardiovascular and medical history is copied from the [facility] record: 1. Multiple sclerosis limiting her mobility 2. Prior DVT with pulmonary emboli, now on chronic Eliquis 3. NSTEMI with non obstructive CAD by cath in 2020. Med management recommended 4. Dyslipidemia 5. Chronic venous insufficiency with LE edema 6. Hypertension Allergies Allergy/AdvReac Type Severity Reaction Status Date / Time No Known Allergies Allergy Verified 11/30/22 14:17 Home Medications Medication Instructions Recorded Confirmed Type cholecalciferol (vitamin D3) 25 1,000 units PO QAM 09/18/18 03/05/23 History mcg (1,000 unit) capsule escitalopram oxalate 20 mg tablet 20 mg PO QAM 09/18/18 03/05/23 History (Lexapro) oxybutynin chloride 15 mg 15 mg PO QAM 09/18/18 03/05/23 History tablet,extended release 24 hr prednisone 10 mg tablet 10 mg PO QAM 09/18/18 03/05/23 History omeprazole 40 mg capsule,delayed 40 mg PO QAM 07/06/21 03/05/23 History release apixaban 5 mg tablet (Eliquis) 5 mg PO BID #60 tabs 07/09/21 03/05/23 Rx teriflunomide 14 mg tablet 14 mg PO QPM 05/13/22 03/05/23 History (Aubagio) tizanidine 4 mg tablet (Zanaflex) 4 mg PO QID PRN Muscle Spasm 05/13/22 03/05/23 History atorvastatin 20 mg tablet (Lipitor) 20 mg PO QAM 08/10/22 03/05/23 History doxycycline hyclate 50 mg capsule 50 mg PO Q OTHER DAY Rosacea 08/10/22 03/05/23 History azelaic acid 15 % topical gel 1 applic topical DAILY 10/21/22 03/05/23 History acetaminophen 500 mg tablet 500 mg PO Q6H PRN Pain 03/05/23 03/05/23 History aspirin 81 mg tablet,delayed 81 mg PO DAILY 03/05/23 03/05/23 History release melatonin 3 mg tablet 3 mg PO HS PRN Insomnia 03/05/23 03/05/23 History multivitamin 1 tab PO DAILY 03/05/23 03/05/23 History Patient History Medical History Anemia CAD (coronary artery disease) Non-obstructive per 06/2021 cardiac cath GERD (gastroesophageal reflux disease) controlled, stable per pt History of blood transfusion History of DVT (deep vein thrombosis) ~6 yrs ago History of GI bleed Upper GIB (2019) felt 2/2 NSAID use History of non-ST elevation myocardial infarction (NSTEMI) 06/2021 (had heart cath, no stents) History of pulmonary embolism ~ 6 yrs ago, IVC filter still in place History of recent hospitalization 09/2022 [facility] - sepsis History of supraventricular tachycardia Hx of gastric ulcer 02/2021 HX: breast cancer Left breast cancer with surgery and chemo/radiation-left arm restriction Hypertension controlled, stable per pt Limb alert care status left arm Multiple sclerosis Follows with Dr. Walker/[facility] Stable Neurogenic bladder SELF CATH 2-3 X'S PER DAY *RECENT HOSPITALIZATION FOR UTI Osteoarthritis of right shoulder Osteoporosis Raynaud disease Surgical History H/O left mastectomy with lymph node removal>LEFT ARM RESTRICTION History of appendectomy History of cardiac cath Cardiac cath (07/06/21; [facility]) > Right dominant coronary system. No evidence of aortic stenosis. Normal left ventricular filling pressures. Nonobstructive disease involving the ostial LAD. No evidence of acute coronary syndrome. Approximately 50% ostial stenosis of the LAD. There was some very mild disease at the ostium of the left circumflex. Recommendations: Medical management. History of colonoscopy History of esophagogastroduodenoscopy (EGD) History of open reduction and internal fixation (ORIF) procedure "left hip" History of tooth extraction Presence of intrathecal pump baclofen pump in place--status post revision/replacement 08/10/2022 S/P IVC filter S/P partial hysterectomy S/p reverse total shoulder arthroplasty right: 05/25/22 LMA#4. No postop issues per anesthesia progress note. Family History Mother Heart disorder Other No family history of adverse response to anesthesia Social History Smoking Status: Never smoker packs per day: 1; Second Hand Exposure: No; Hx Alcohol Use: No Hx Substance Use: No Preferred Language: Spanish Communication Ability: Effective Visual Impairment: No Limitations Hearing Ability: Normal Coverstitch Binder Required: No Beliefs That Will Affect Care: None marital status: / Current Living Situation: Alone Current Living Situation Comment: home alone- uses walker but needs a new one current occupational status: retired How many Children do You have: 3 Other Information That Helps Us Care for You: No Feels Safe at Home: Yes Safety Concerns: Feels Safe At This Time Childhood Exposure to Second-Hand Smoke: Yes Assistive Devices: Walker and Wheelchair Review of Systems Review of Systems: All systems reviewed & are unremarkable except as noted in Subjective Physical Exam Constitutional: well nourished; no acute distress Cardiovascular: Rate/Rhythm: regular rate and regular rhythm Vessels: radial pulses present; no JVD and no carotid bruit Extremities: + edema (Mild bilateral pedal edema) Gastrointestinal (Abdomen): Inspection/Auscultation: abdomen normal to inspection and normal bowel sounds; abdomen not distended Percussion/Palpation: abdomen soft; abdomen nontender, no guarding and abdomen not rigid Neurologic: CN's II-XI intact bilaterally and moves all extremities Psychiatric: A+Ox3, euthymic affect Results & Data Vital Signs (Past 12 Hours) Vital Signs Temp Pulse Pulse Resp BP BP BP 03/06/23 07:46 80 03/06/23 07:45 36.5 C 82 18 107/74 03/06/23 03:54 86 90/59 L 03/06/23 03:50 36.4 C L 86 17 90/59 L 03/06/23 01:10 92 H 03/06/23 01:17 03/06/23 00:59 37.3 C 83 16 144/86 H 03/06/23 00:05 97 H 17 03/06/23 00:00 96 H 25 H 03/06/23 00:00 132/95 03/05/23 23:55 98 H 22 03/05/23 23:50 102 H 20 03/05/23 23:45 98 H 21 03/05/23 23:45 132/89 03/05/23 23:40 96 H 20 03/05/23 23:35 103 H 19 03/05/23 23:30 105 H 15 03/05/23 23:30 142/108 H Pulse Ox O2 Del Method 03/06/23 07:46 03/06/23 07:45 92 Room Air 03/06/23 03:54 03/06/23 03:50 95 Room Air 03/06/23 01:10 03/06/23 01:17 Room Air 03/06/23 00:59 94 Room Air 03/06/23 00:05 93 03/06/23 00:00 94 03/06/23 00:00 03/05/23 23:55 92 03/05/23 23:50 94 03/05/23 23:45 93 03/05/23 23:45 03/05/23 23:40 91 03/05/23 23:35 92 03/05/23 23:30 94 03/05/23 23:30 Laboratory Results Cardiac Enzymes 03/05/23 03/05/23 03/06/23 Range/Units 16:29 20:09 03:59 AST 25 (13-39) U/L Troponin I High Sens 38.1 H 40.0 H 32.0 H (0-14) pg/ml Coagulation 03/05/23 Range/Units 16:29 PT 11.4 (9.0-12.0) Seconds APTT 24.5 (21.0-31.0) Seconds CBC 03/05/23 03/06/23 Range/Units 16:29 03:59 WBC 6.56 4.46 L (4.8-10.8) K/ul RBC 4.09 L 3.76 L (4.20-5.40) M/uL Hgb 11.8 L 10.9 L (12.0-16.0) g/dl Hct 37.0 33.9 L (37.0-47.0) % Plt Count 259 256 (130-400) K/uL Neut # (Auto) 6.04 4.22 (1.40-6.50) K/uL Lymph # (Auto) 0.13 L 0.12 L (1.2-3.4) K/uL [place] # (Auto) 0.30 0.11 (0.11-0.59) K/uL Eos # (Auto) 0.04 0.00 (0-0.50) K/uL Baso # (Auto) 0.03 0.00 (0-0.2) K/uL Comprehensive Metabolic Panel 03/05/23 03/06/23 Range/Units 16:29 03:59 Sodium 141 140 (136-145) mmol/L Potassium 3.8 3.9 (3.5-5.1) mmol/L Chloride 105 107 (98-107) mmol/L Carbon Dioxide 30 26 (21-32) mmol/L BUN 19 14 (6-23) mg/dl Creatinine 0.80 0.73 (0.6-1.2) mg/dl Glucose 104 H 127 H (70-99(Fasting)) mg/dl Calcium 8.1 L 7.6 L (8.6-10.3) mg/dl Direct Bilirubin 0.1 (0-0.2) mg/dl AST 25 (13-39) U/L ALT 20 (7-52) U/L Alkaline Phosphatase 53 (34-104) U/L Total Protein 5.8 L (6.0-8.3) gm/dl Albumin 3.4 3.2 L (3.4-5.0) gm/dl Intake and Output 03/05/23 03/06/23 03/06/23 22:59 06:59 14:59 Intake Total 2510.917 / 3594.917 1084 / 3594.917 60 / 60 Output Total 50 / 1050 1000 / 1050 Balance 2460.917 / 2544.917 84 / 2544.917 60 / 60 Intake: IV 2510.917 / 3594.917 1084 / 3594.917 60 / 60 Amiodarone / D5w 150 mg In 100 100 / 100 ml @ 600 mls/hr IV NOW STA Rx#: [id number] Amiodarone / D5w 360 mg In 200 86 / 86 ml @ 1 MG/MIN 33.333 mls/hr IV ONE ONE Rx#:[id number] Calcium Gluconate 10% 1,000 mg 60 / 60 In Dextrose 5% 50 ml @ 240 mls/ hr IV NOW ONE Rx#:[id number] Lactated Ringer's 1,000 ml @ 698 / 698 100 mls/hr IV .Q10H ONE Rx#: [id number] Magnesium Sulfate / D5w 1 gm In 200 / 200 100 ml @ 50 mls/hr IV Q2H [facility] Rx#:[id number] Sodium Chloride 0.9% 1000ML 1, 2500 / 2500 000 ml @ 125 mls/hr IV .Q8H [facility] Rx#:[id number] cefTRIAXone SODIUM 1,000 mg In 5 / 5 Dextrose 5% Ad-Van 50 ml @ 100 mls/hr IV NOW STA Rx#:[id number] dilTIAZem HCL 125 mg In 5.917 / 5.917 Dextrose 5% 100 ml @ 5 MG/HR 5 mls/hr IV .Q24H [facility] Rx#: [id number] Output: Urine 50 / 50 Urine Amount (Catheter) 1000 / 1000 Zuñiga/Indwelling 1000 / 1000 Other: Weight 66.6 kg 66.7 kg Weight Measurement Method [facility] ECG Additional Comments: ECG was performed in the ER from 03/05/2023 reviewed demonstrate atrial fibrillation with rapid ventricular response. (4) UTI (urinary tract infection) Hematuria presence: without hematuria Urinary tract infection type: acute cystitis Qualified Code(s): N30.00 - Acute cystitis without hematuria
[2023-03-06] MEDS: METOPROLOL TARTRATE 25 MG TAB PO SCH ×2 (12:31→21:54)
--- NOTE | 2023-03-06 15:07 | Hospitalist Progress Note ---
Date of Service March 06, 2023 Assessment & Plan (1) Hypotension: Plan: Paroxysmal atrial fibrillation with RVR Spontaneously converted to sinus rhythm IV diltiazem/amiodarone discontinued Started on metoprolol 12.5 mg twice daily On Eliquis for anticoagulation Appreciate cardiology input Blood pressure borderline low Complicated UTI/acute pyelonephritis Bilateral hydroureteronephrosis Neurogenic bladder likely due to multiple sclerosis --CT ABD:No bowel obstruction. No bowel wall thickening. Moderate bilateral hydroureteronephrosis which is likely related to bladder given the thickened, irregular trabeculated bladder wall. Moderate-sized hiatal hernia, unchanged. 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 Left breast cancer S/P surgery/radiation Chronic anemia Hb at baseline Chronic pain on baclofen pump DVT Px: on Eliquis Code Status Full code Admission and Anticipated Discharge Date Admission Date: March 05, 2023 Subjective Patient is seen and examined at bedside States feeling better today Reports intermittent palpitations Abdominal pain, diarrhea resolved Denies any nausea, vomiting, chest pain, dyspnea, dizziness, dysuria, hematuria No other complaints Review of Systems Review of Systems: All systems reviewed & are unremarkable except as noted in Subjective Physical Exam Physical Exam: Physical Exam: Vitals signs as noted above General Appearance:Chronic ill, no apparent distress Head: normocephalic, Atraumatic Eyes: normal inspection, EOMI Neck: supple, Trachea midline Respiratory/Chest: Normal breath sounds, CTA, No accessory muscle use Cardiovascular: S1, S2, + murmur Abdomen/GI:Soft, Non tender, Bowel sounds present Extremities/Musculoskeletal:normal inspection, 1+ Pedal edema Neurologic/Psych:AAOX3, grossly no focal neurological deficits, +Mild hearing impairment Skin: normal color, warm Results & Data Results & Data Vital Signs (Past 12 Hours) Vital Signs Temp Pulse Pulse Resp BP BP BP 03/06/23 12:30 104/55 L 03/06/23 11:56 36.7 C 88 18 100/65 03/06/23 07:46 80 03/06/23 07:45 36.5 C 82 18 107/74 03/06/23 03:54 86 90/59 L 03/06/23 03:50 36.4 C L 86 17 90/59 L Pulse Ox O2 Del Method 03/06/23 12:30 03/06/23 11:56 93 Room Air 03/06/23 07:46 03/06/23 07:45 92 Room Air 03/06/23 03:54 03/06/23 03:50 95 Room Air Laboratory Results Short CBC 03/05/23 03/06/23 Range/Units 16:29 03:59 WBC 6.56 4.46 L (4.8-10.8) K/ul Hgb 11.8 L 10.9 L (12.0-16.0) g/dl Hct 37.0 33.9 L (37.0-47.0) % Plt Count 259 256 (130-400) K/uL BMP 03/05/23 03/06/23 16:29 03:59 Sodium 141 140 Potassium 3.8 3.9 Chloride 105 107 Carbon Dioxide 30 26 BUN 19 14 Creatinine 0.80 0.73 Glucose 104 H 127 H Calcium 8.1 L 7.6 L Liver Function 03/05/23 03/06/23 Range/Units 16:29 03:59 Total Bilirubin 0.7 (0.2-1.0) mg/dl Direct Bilirubin 0.1 (0-0.2) mg/dl AST 25 (13-39) U/L ALT 20 (7-52) U/L Alkaline Phosphatase 53 (34-104) U/L Albumin 3.4 3.2 L (3.4-5.0) gm/dl Urine 03/05/23 Range/Units 19:19 Urine Color Yellow Urine Appearance Clear (Clear) Urine pH 8.0 H (4.5-7.5) Ur Specific [place] 1.020 (1.000-1.030) Urine Protein Negative (Negative) Urine Glucose (UA) Negative (Negative)
--- NOTE | 2023-03-06 17:06 | Electrocardiogram Report ---
Test Reason : Blood Pressure : / mmHG Vent. 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 rate has increased BY [address] depression in multiple leads now present Confirmed by Navneet Sen ([id number]) on 03/06/2023 5:06:10 PM Referred By: REFERRED SELF Confirmed By:Navneet Sen
--- NOTE | 2023-03-06 17:06 | Electrocardiogram Report ---
Test Reason : Blood Pressure : / mmHG Vent. Rate : 164 BPM Atrial Rate : 136 BPM P-R Int : 000 ms QRS Dur : 064 ms QT Int : 284 ms P-R-T Axes : 000 016 069 degrees QTc Int : 469 ms Atrial fibrillation with rapid ventricular response Septal infarct (cited on or before 21-OCT-2022) Nonspecific ST abnormality Abnormal ECG When compared with ECG of 05-MAR-2023 21:28, No significant change was found Confirmed by Navneet Sen ([id number]) on 03/06/2023 5:06:26 PM Referred By: REFERRED SELF Confirmed By:Navneet eSn
--- NOTE | 2023-03-06 17:07 | Electrocardiogram Report ---
Test Reason : Blood Pressure : / mmHG Vent. Rate : 118 BPM Atrial Rate : 119 BPM P-R Int : 000 ms QRS Dur : 058 ms QT Int : 278 ms P-R-T Axes : 000 014 046 degrees QTc Int : 389 ms Atrial fibrillation with rapid ventricular response with premature ventricular or aberrantly conducte d complexes Old Septal infarct (cited on or before 21-OCT-2022) Abnormal ECG When compared with ECG of 05-MAR-2023 21:29, No significant change by 46 bpm Otherwise no significant change Confirmed by Navneet Sen ([id number]) on 03/06/2023 5:06:56 PM Referred By: REFERRED SELF Confirmed By:Navneet Sen
[2023-03-06] MEDS: MELATONIN 3 MG TAB PO PRN (21:54)
[2023-03-07 00:12] LABS: Adenovirus F 40/41 PCR Not Detected (NotDetected); Astrovirus PCR Not Detected (NotDetected); Campylobacter PCR Not Detected (NotDetected); Cryptosporidium PCR Not Detected (NotDetected); Cyclospora cayetanensis PCR Not Detected (NotDetected); Entamoeba histolytica PCR Not Detected (NotDetected); Enteroaggregative E.coli(EAEC) Not Detected (NotDetected); Enteropathogenic E.coli (EPEC) Not Detected (NotDetected); Enterotoxigenic E.coli (ETEC) Not Detected (NotDetected); Giardia lamblia PCR Not Detected (NotDetected); Plesiomonas shigelloides PCR Not Detected (NotDetected); Rotavirus A PCR Not Detected (NotDetected); Salmonella PCR Not Detected (NotDetected); Sapovirus PCR Not Detected (NotDetected); Shiga-like Toxin E.coli (STEC) Not Detected (NotDetected); Shigella/Enteroinvasive E.coli Not Detected (NotDetected); Vibrio cholerae PCR Not Detected (NotDetected); Vibrio species PCR Not Detected (NotDetected); Yersinia enterocolitica PCR Not Detected (NotDetected)
[2023-03-07 00:30] LABS: Norovirus GI/GII PCR DETECTED (NotDetected)
[2023-03-07] MEDS: MEROPENEM 500 MG in SYRINGE 0 ML IV SCH (04:27)
[2023-03-07 06:33] LABS: Hematocrit (blood only) 29.2 % (37.0-47.0); Hemoglobin 9.3 g/dl (12.0-16.0); Mean Corpuscular Hemoglobin 28.9 pg (25.0-34.0); Mean Corpuscular Hgb Conc 31.8 g/dL (32.0-36.0); Mean Corpuscular Volume 90.7 fL (80.0-100.0); Mean Platelet Volume 10.4 fL (9.4-12.4); Platelet Count 226 K/uL (130-400); RDW Coefficient of Variation 14.9 % (11.5-14.5); RDW Standard Deviation 49.1 fL (36.4-46.3); Red Blood Count 3.22 M/uL (4.20-5.40)
[2023-03-07 06:56] LABS: BUN Creatinine Ratio 33.3 (10-20); Calcium 7.3 mg/dl (8.6-10.3); Creatinine Clr Calc Pharmacy 77.3 ml/min; Est GFR (African American) 105.3 ml/min; Est GFR (Non-African American) 90.9 ml/min; Magnesium 2.1 mg/dl (1.7-2.4)
[2023-03-07] MEDS: ADVANCED PROBIOTIC 1250 MG CAPSULE PO SCH (08:28)
[2023-03-07] MEDS: OXYBUTYNIN CHLORIDE XL 5 MG TABCR PO SCH (08:28)
[2023-03-07] MEDS: PANTOprazole 40 MG TAB PO SCH (08:29)
[2023-03-07] MEDS: predniSONE 10 MG TABLET PO SCH (08:29)
[2023-03-07] MEDS: MULTIVITAMIN TAB PO SCH (08:29)
[2023-03-07] MEDS: ESCITALOPRAM OXALATE 20 MG TAB PO SCH (08:29)
[2023-03-07] MEDS: ATORVASTATIN 20 MG TAB PO SCH (08:29)
[2023-03-07] MEDS: METOPROLOL TARTRATE 25 MG TAB PO SCH ×2 (08:29→20:51)
[2023-03-07] MEDS: ASPIRIN 81 MG ECTAB PO SCH (08:29)
[2023-03-07] MEDS: APIXABAN 5 MG TABLET PO SCH ×2 (08:29→20:51)
[2023-03-07] MEDS: ERTAPENEM SODIUM 1,000 MG in SYRINGE 0 ML IV SCH (09:45)
--- NOTE | 2023-03-07 10:23 | Cardiology Progress Note ---
Date of Service March 07, 2023 Assessment & Plan (1) Paroxysmal atrial fibrillation with RVR: (2) CAD (coronary artery disease): (3) History of DVT (deep vein thrombosis): (4) UTI (urinary tract infection): Plan 72-year-old female admitted with complicated UTI and paroxysmal atrial fibrillation with rapid ventricular response. Patient spontaneously converted to sinus rhythm on admission. IV diltiazem discontinued. Low dose metoprolol tartrate initiated at 12.5 mg BID for rhythm control. Tolerating medication. Continue Eliquis 5 mg BID. Continue treatment for UTI/pyelonephritis per hospitalist. Case discussed with Dr. Vargas. Admission and Anticipated Discharge Date Admission Date: March 05, 2023 Supervising Physician Co-Signing Physician Notes Supervising Physician Attestation: I have personally performed a history and physical examination on the patient. I agree with the physician metal forger's assistant's findings and plan as documented with the following additions. Subjective: Patient subjectively improved. Zuñiga catheter in place draining clear yellow urine Exam: Cardiovascular: Regular rhythm, no murmurs, trace edema : Zuñiga catheter in place draining clear yellow urine Data: EKG performed 03/05/2023 and interpreted independently: Atrial fibrillation with rapid ventricular response at 118 bpm, age-indeterminate septal infarct pattern noted in lead V2, which is a chronic finding. Urine culture yielding Klebsiella pneumoniae, blood cultures negative x2 thus far Assessment and Plan: Atrial fibrillation, with spontaneous conversion to sinus rhythm Complicated UTI, hydronephrosis, history of neurogenic bladder -Continue metoprolol tartrate 12.5 mg twice daily, Eliquis for stroke prophylaxis Toby Vargas, DO Subjective Patient resting in bed comfortably. Reports feeling much better since admission. No dizziness or lightheadedness. No chest pain or SOB. No recurrent afib overnight or this morning. Tolerating metoprolol. BP acceptable. Review of Systems Review of Systems: All systems reviewed & are unremarkable except as noted in HPI & below Physical Exam Constitutional: well nourished; no acute distress Cardiovascular: Rate/Rhythm: regular rate and regular rhythm Vessels: radial pulses present; no JVD and no carotid bruit Extremities: + edema (Mild bilateral pedal edema) Gastrointestinal (Abdomen): Inspection/Auscultation: abdomen normal to inspection and normal bowel sounds; abdomen not distended Percussion/Palpation: abdomen soft; abdomen nontender, no guarding and abdomen not rigid Neurologic: CN's II-XI intact bilaterally and moves all extremities Psychiatric: A+Ox3, euthymic affect Results & Data Vital Signs (Past 12 Hours) Vital Signs Temp Pulse Pulse Resp BP Pulse Ox O2 Del Method 03/07/23 07:46 72 03/07/23 07:39 36.8 C 80 18 104/64 94 Room Air 03/07/23 00:00 80 03/07/23 03:11 36.8 C 75 18 113/68 93 Room Air Laboratory Results CBC 03/07/23 Range/Units 05:28 WBC 2.80 L (4.8-10.8) K/ul RBC 3.22 L (4.20-5.40) M/uL Hgb 9.3 L (12.0-16.0) g/dl Hct 29.2 L (37.0-47.0) % Plt Count 226 (130-400) K/uL Comprehensive Metabolic Panel 03/07/23 Range/Units 05:28 Sodium 141 (136-145) mmol/L Potassium 4.0 (3.5-5.1) mmol/L Chloride 111 H (98-107) mmol/L Carbon Dioxide 26 (21-32) mmol/L BUN 21 (6-23) mg/dl Creatinine 0.63 (0.6-1.2) mg/dl Glucose 93 (70-99(Fasting)) mg/dl Calcium 7.3 L (8.6-10.3) mg/dl Intake and Output 03/06/23 03/07/23 03/07/23 22:59 06:59 14:59 Intake Total 1650 / 1960 250 / 1960 Output Total 600 / 1000 400 / 1000 Balance 1050 / 960 -150 / 960 Intake: IV 1000 / 1060 Nss + 20Meq KCl 20 meq In 1,000 1000 / 1000 ml @ 100 mls/hr IV .Q10H ONE Rx#:[id number] Oral 650 / 900 250 / 900 Output: Urine Amount (Catheter) 600 / 1000 400 / 1000 Zuñiga/Indwelling 600 / 1000 400 / 1000 Other: Weight 68.8 kg Weight Measurement Method Built in [facility] Diagnostic Findings Telemetry reviewed: NSR in the 70's. One 10 second run of non sustained atrial tach vs atrial fib last evening around 22:35 Medications Administered Current Inpatient Medications Apixaban (Apixaban 5 Mg Tablet) 5 mg PO BID [facility] Stop: 04/05/23 00:53 Last Admin: 03/07/23 08:29 Dose: 5 mg Aspirin (Aspirin 81 Mg Ectab) 81 mg PO DAILY [facility] Stop: 04/05/23 08:59 Last Admin: 03/07/23 08:29 Dose: 81 mg Atorvastatin Calcium (Atorvastatin 20 Mg Tab) 20 mg PO QAM [facility] Stop: 04/05/23 08:59 Last Admin: 03/07/23 08:29 Dose: 20 mg Doxycycline Hyclate (Doxycycline Hyclate 50 Mg Cap) 50 mg PO Q2D [facility] Stop: 04/05/23 08:59 Last Admin: 03/06/23 08:30 Dose: 50 mg Escitalopram Oxalate (Escitalopram Oxalate 20 Mg Tab) 20 mg PO QAM [facility] Stop: 04/05/23 08:59 Last Admin: 03/07/23 08:29 Dose: 20 mg Promethazine HCl 6.25 mg/ (Sodium Chloride) 50.25 mls @ 201 mls/hr IV Q6H PRN PRN Reason: Nausea And Vomiting Stop: 04/05/23 00:53 Ertapenem 1,000 mg/ Syringe 10 mls @ 2 mls/min IV Q24H [facility]; Protocol Stop: 03/16/23 03:59 Last Admin: 03/07/23 09:45 Dose: 2 mls/min Lactobacillus Acidophilus (Advanced Probiotic 1250 Mg Capsule) 2 cap PO DAILY [facility] Stop: 04/05/23 08:59 Last Admin: 03/07/23 08:28 Dose: 2 cap Melatonin (Melatonin 3 Mg Tab) 3 mg PO HS PRN PRN Reason: Insomnia Stop: 04/05/23 00:53 Last Admin: 03/06/23 21:54 Dose: 3 mg Metoprolol Tartrate (Metoprolol Tartrate 25 Mg Tab) 12.5 mg PO BID [facility] Stop: 04/05/23 11:44 Last Admin: 03/07/23 08:29 Dose: 12.5 mg Multivitamins (Multivitamin Tab) 1 tab PO DAILY [facility] Stop: 04/05/23 08:59 Last Admin: 03/07/23 08:29 Dose: 1 tab Oxybutynin Chloride (Oxybutynin Chloride Xl 5 Mg Tabcr) 15 mg PO QAM [facility] Stop: 04/05/23 08:59 Last Admin: 03/07/23 08:28 Dose: 15 mg Pantoprazole Sodium (Pantoprazole 40 Mg Tab) [facility] [place]: 04/05/23 08:59 Last Admin: 03/07/23 08:29 Dose: 40 mg Prednisone (Prednisone 10 Mg Tablet) [facility] [place] [place]: 04/06/23 08:59 Last Admin: 03/07/23 08:29 Dose: 10 mg Tizanidine HCl (Tizanidine Hcl 4 Mg Tablet) 4 mg PO QID PRN PRN Reason: Muscle Spasm Stop: 04/05/23 00:53 (4) UTI (urinary tract infection) Hematuria presence: without hematuria Urinary tract infection type: acute cystitis Qualified Code(s): N30.00 - Acute cystitis without hematuria
[2023-03-07] MEDS: tiZANidine HCL 4 MG TABLET PO PRN (17:05)
--- NOTE | 2023-03-07 18:24 | Hospitalist Progress Note ---
Date of Service March 07, 2023 Assessment & Plan (1) Hypotension: Plan: Paroxysmal atrial fibrillation with RVR Spontaneously converted to sinus rhythm IV diltiazem/amiodarone discontinued Started on metoprolol 12.5 mg twice daily On Eliquis for anticoagulation Appreciate cardiology input Blood pressure better Complicated UTI/acute pyelonephritis Bilateral hydroureteronephrosis Neurogenic bladder likely due to multiple sclerosis UTI likely due to intermittent self catheterization/Neurogenic Bladder/obstructive uropathy --CT ABD:No bowel obstruction. No bowel wall thickening. Moderate bilateral hydroureteronephrosis which is likely related to bladder given the thickened, irregular trabeculated bladder wall. Moderate-sized hiatal hernia, unchanged. --Urine culture growing ESBL Klebsiella pneumonia --Blood cultures No growth to date Usually Self catheters X 6 a day On IV Merrem>> transition to ertapenem Appreciate urology input Continue maintaining urinary catheter for 7-10 days Needs follow-up with urology upon discharge Norovirus infection-POA Conservative management Contact isolation Diarrhea improving Possible adrenal insufficiency on chronic prednisone Rx Received IV Decadron Monitor BP BP stable continue home prednisone Chronic Troponin elevation H/O CAD as per records Continue aspirin, statin Denies chest pain Hyperlipidemia on statin 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 Left breast cancer S/P surgery/radiation Chronic anemia Hb at baseline Chronic pain on baclofen pump DVT Px: on Eliquis Code Status Full code Disposition PT OT prior to discharge Admission and Anticipated Discharge Date Admission Date: March 05, 2023 Subjective Patient is seen and examined at bedside Doing well today States having minimal abdominal discomfort Diarrhea much improved In sinus rhythm this morning No new complaints Denies any nausea, vomiting, chest pain, dyspnea, dizziness, dysuria, hematuria Review of Systems Review of Systems: All systems reviewed & are unremarkable except as noted in Subjective Physical Exam Physical Exam: Physical Exam: Vitals signs as noted above General Appearance:Chronic ill, no apparent distress Head: normocephalic, Atraumatic Eyes: normal inspection, EOMI Neck: supple, Trachea midline Respiratory/Chest: Normal breath sounds, CTA, No accessory muscle use Cardiovascular: S1, S2, + murmur Abdomen/GI:Soft, Non tender, Bowel sounds present Extremities/Musculoskeletal:normal inspection, 1+ Pedal edema Neurologic/Psych:AAOX3, grossly no focal neurological deficits, +Mild hearing impairment Skin: normal color, warm Results & Data Results & Data Vital Signs (Past 12 Hours) Vital Signs Temp Pulse Pulse Resp BP Pulse Ox O2 Del Method 03/07/23 15:49 36.6 C 60 18 128/83 95 Room Air 03/07/23 15:40 79 03/07/23 11:29 36.6 C 80 19 119/74 97 Room Air 03/07/23 07:46 72 03/07/23 07:39 36.8 C 80 18 104/64 94 Room Air Laboratory Results Short CBC 03/07/23 Range/Units 05:28 WBC 2.80 L (4.8-10.8) K/ul Hgb 9.3 L (12.0-16.0) g/dl Hct 29.2 L (37.0-47.0) % Plt Count 226 (130-400) K/uL BMP 03/07/23 05:28 Sodium 141 Potassium 4.0 Chloride 111 H Carbon Dioxide 26 BUN 21 Creatinine 0.63 Glucose 93 Calcium 7.3 L
[2023-03-07] MEDS: MELATONIN 3 MG TAB PO PRN (22:02)
[2023-03-08 06:22] LABS: Hematocrit (blood only) 33.4 % (37.0-47.0); Hemoglobin 10.7 g/dl (12.0-16.0); Mean Corpuscular Hemoglobin 28.9 pg (25.0-34.0); Mean Corpuscular Volume 90.3 fL (80.0-100.0); Mean Platelet Volume 10.7 fL (9.4-12.4); Platelet Count 257 K/uL (130-400); RDW Coefficient of Variation 14.9 % (11.5-14.5); RDW Standard Deviation 49.5 fL (36.4-46.3); White Blood Count 3.07 K/ul (4.8-10.8)
[2023-03-08 06:41] LABS: BUN Creatinine Ratio 23.6 (10-20); Calcium 7.6 mg/dl (8.6-10.3); Est GFR (African American) 98.3 ml/min; Est GFR (Non-African American) 84.9 ml/min; Magnesium 1.9 mg/dl (1.7-2.4); Potassium 4.1 mmol/L (3.5-5.1)
[2023-03-08] MEDS: ASPIRIN 81 MG ECTAB PO SCH (08:46)
[2023-03-08] MEDS: ATORVASTATIN 20 MG TAB PO SCH (08:47)
[2023-03-08] MEDS: APIXABAN 5 MG TABLET PO SCH ×2 (08:47→21:16)
[2023-03-08] MEDS: DOXYCYCLINE HYCLATE 50 MG CAP PO SCH (08:48)
[2023-03-08] MEDS: ESCITALOPRAM OXALATE 20 MG TAB PO SCH (08:48)
[2023-03-08] MEDS: METOPROLOL TARTRATE 25 MG TAB PO SCH ×2 (08:49→21:16)
[2023-03-08] MEDS: ADVANCED PROBIOTIC 1250 MG CAPSULE PO SCH (08:49)
[2023-03-08] MEDS: OXYBUTYNIN CHLORIDE XL 5 MG TABCR PO SCH (08:50)
[2023-03-08] MEDS: MULTIVITAMIN TAB PO SCH (08:50)
[2023-03-08] MEDS: predniSONE 10 MG TABLET PO SCH (08:51)
[2023-03-08] MEDS: PANTOprazole 40 MG TAB PO SCH (08:51)
[2023-03-08] MEDS: tiZANidine HCL 4 MG TABLET PO PRN ×2 (09:37→21:15)
[2023-03-08] MEDS: ERTAPENEM SODIUM 1,000 MG in SYRINGE 0 ML IV SCH (10:26)
--- NOTE | 2023-03-08 10:44 | Cardiology Progress Note ---
Date of Service March 08, 2023 Assessment & Plan (1) Paroxysmal atrial fibrillation with RVR: (2) CAD (coronary artery disease): (3) History of DVT (deep vein thrombosis): (4) UTI (urinary tract infection): Plan 72-year-old female admitted with complicated UTI and paroxysmal atrial fibrillation with rapid ventricular response. Patient spontaneously converted to sinus rhythm on admission. IV diltiazem discontinued. Low dose metoprolol tartrate initiated at 12.5 mg BID for rhythm control. Tolerating medication. Continue Eliquis 5 mg BID for stroke prophylaxis. Continue treatment for UTI/pyelonephritis per hospitalist. No further cardiac testing warranted. Case discussed with Dr. Vargas. Will sign off. Please call prestressed concrete laborer provider with additional questions or concerns. Admission and Anticipated Discharge Date Admission Date: March 05, 2023 Supervising Physician Co-Signing Physician Notes Supervising Physician Attestation: I have personally performed a history and physical examination on the patient. I agree with the physician sales and marketing assistant's findings and plan as documented with the following additions. Subjective: Patient without cardiac complaint. Sinus rhythm in the 80s noted on telemetry. Zuñiga catheter remains in place. Exam: Cardiovascular: Regular rhythm, no murmurs, trace bilateral lower extremity edema : Zuñiga catheter in place draining clear yellow urine Assessment and Plan: Paroxysmal atrial fibrillation, converted to sinus rhythm. Continue metoprolol, Eliquis. Toby Vargas, DO Subjective Patient resting in bed comfortably. Presenting weakness/lethargy improved. No recurrent afib. Tolerating low dose metoprolol. No dizziness or lightheadedness. No chest pain or dyspnea. Review of Systems Review of Systems: All systems reviewed & are unremarkable except as noted in HPI & below Physical Exam Constitutional: well nourished; no acute distress Cardiovascular: Rate/Rhythm: regular rate and regular rhythm Vessels: radial pulses present; no JVD and no carotid bruit Extremities: + edema (Mild bilateral pedal edema) Gastrointestinal (Abdomen): Inspection/Auscultation: abdomen normal to inspection and normal bowel sounds; abdomen not distended Percussion/Palpation: abdomen soft; abdomen nontender, no guarding and abdomen not rigid Neurologic: CN's II-XI intact bilaterally and moves all extremities Psychiatric: A+Ox3, euthymic affect Results & Data Vital Signs (Past 12 Hours) Vital Signs Temp Pulse Pulse Resp BP Pulse Ox O2 Del Method 03/08/23 10:36 83 03/08/23 07:56 36.9 C 73 18 129/79 96 Room Air 03/08/23 00:00 78 03/08/23 03:48 37 C 79 16 165/76 H 94 Room Air 03/08/23 00:14 36.7 C 79 16 121/72 95 Room Air Laboratory Results CBC 03/08/23 Range/Units 05:24 WBC 3.07 L (4.8-10.8) K/ul RBC 3.70 L (4.20-5.40) M/uL Hgb 10.7 L (12.0-16.0) g/dl Hct 33.4 L (37.0-47.0) % Plt Count 257 (130-400) K/uL Comprehensive Metabolic Panel 03/08/23 Range/Units 05:24 Sodium 142 (136-145) mmol/L Potassium 4.1 (3.5-5.1) mmol/L Chloride 110 H (98-107) mmol/L Carbon Dioxide 27 (21-32) mmol/L BUN 17 (6-23) mg/dl Creatinine 0.72 (0.6-1.2) mg/dl Glucose 89 (70-99(Fasting)) mg/dl Calcium 7.6 L (8.6-10.3) mg/dl Intake and Output 03/07/23 03/08/23 03/08/23 22:59 06:59 14:59 Intake Total 550 / 550 Output Total 1125 / 1825 700 / 1825 Balance -575 / -1275 -700 / -1275 Intake: Oral 550 / 550 Output: Urine Amount (Catheter) 1125 / 1825 700 / 1825 Zuñiga/Indwelling 1125 / 1825 700 / 1825 Other: Weight 69.6 kg Weight Measurement Method Built in [facility] Diagnostic Findings Telemetry reviewed: NSR with PAC's and PVC's. Medications Administered Current Inpatient Medications Apixaban (Apixaban 5 Mg Tablet) 5 mg PO BID [facility] Stop: 04/05/23 00:53 Last Admin: 03/08/23 08:47 Dose: 5 mg Aspirin (Aspirin 81 Mg Ectab) 81 mg PO DAILY [facility] Stop: 04/05/23 08:59 Last Admin: 03/08/23 08:46 Dose: 81 mg Atorvastatin Calcium (Atorvastatin 20 Mg Tab) 20 mg PO QAM [facility]S [facility] 234 BEDS AT [facility] Stop: 04/05/23 08:59 Last Admin: 03/08/23 08:47 Dose: 20 mg Doxycycline Hyclate (Doxycycline Hyclate 50 Mg Cap) 50 mg PO Q2D [facility]S [facility]CLUDE 234 B[facility]S AT [facility] Stop: 04/05/23 08:59 Last Admin: 03/08/23 08:48 Dose: 50 mg Escitalopram Oxalate (Escitalopram [facility] 20 Mg Tab) [facility] [place]: 04/05/23 08:59 Last Admin: 03/08/23 08:48 Dose: 20 mg Promethazine HCl 6.25 mg/ (Sodium Chloride) 50.25 mls @ 201 mls/hr IV Q6H PRN PRN Reason: Nausea And Vomiting Stop: 04/05/23 00:53 Ertapenem 1,000 mg/ Syringe 10 mls @ 2 mls/min IV Q24H COUNTS INCLUDE 234 BEDS AT [facility]; Protocol Stop: 03/16/23 03:59 Last Admin: 03/08/23 10:26 Dose: 2 mls/min Lactobacillus Acidophilus (Advanced Probiotic 1250 Mg Capsule) 2 cap PO DAILY [facility] 234 [facility]S AT [facility] Stop: 04/05/23 08:59 Last Admin: 03/08/23 08:49 Dose: 2 cap Melatonin (Melatonin 3 Mg Tab) 3 mg PO HS PRN PRN Reason: Insomnia Stop: 04/05/23 00:53 Last Admin: 03/07/23 22:02 Dose: 3 mg Metoprolol Tartrate (Metoprolol Tartrate 25 Mg Tab) 12.5 mg PO BID [facility]S INCLUDE 234 BEDS AT [facility] Stop: 04/05/23 11:44 Last Admin: 03/08/23 08:49 Dose: 12.5 mg Multivitamins (Multivitamin Tab) 1 tab PO DAILY [facility]CLUDE 234 BEDS AT [facility] Stop: 04/05/23 08:59 Last Admin: 03/08/23 08:50 Dose: 1 tab Oxybutynin Chloride (Oxybutynin Chloride Xl 5 Mg Tabcr) 15 mg PO [facility] Stop: 04/05/23 08:59 Last Admin: 03/08/23 08:50 Dose: 15 mg Pantoprazole Sodium (Pantoprazole 40 Mg Tab) 40 mg PO [facility] Stop: 04/05/23 08:59 Last Admin: 03/08/23 08:51 Dose: 40 mg Prednisone (Prednisone 10 Mg Tablet) 10 mg PO [facility] Stop: 04/06/23 08:59 Last Admin: 03/08/23 08:51 Dose: 10 mg Tizanidine HCl (Tizanidine Hcl 4 Mg Tablet) 4 mg PO QID PRN PRN Reason: Muscle Spasm Stop: 04/05/23 00:53 Last Admin: 03/08/23 09:37 Dose: 4 mg (4) UTI (urinary tract infection) Hematuria presence: without hematuria Urinary tract infection type: acute cystitis Qualified Code(s): N30.00 - Acute cystitis without hematuria
--- NOTE | 2023-03-08 17:30 | Hospitalist Progress Note ---
Date of Service March 08, 2023 Assessment & Plan (1) Hypotension: Plan: Paroxysmal atrial fibrillation with RVR Spontaneously converted to sinus rhythm Multiple NSVTs IV diltiazem/amiodarone discontinued On Eliquis for anticoagulation Appreciate cardiology input Blood pressure better Metoprolol dose increased to 25 mg twice daily Complicated UTI/acute pyelonephritis Bilateral hydroureteronephrosis Neurogenic bladder likely due to multiple sclerosis UTI likely due to intermittent self catheterization/Neurogenic Bladder/obstructive uropathy --CT ABD:No bowel obstruction. No bowel wall thickening. Moderate bilateral hydroureteronephrosis which is likely related to bladder given the thickened, irregular trabeculated bladder wall. Moderate-sized hiatal hernia, unchanged. --Urine culture growing ESBL Klebsiella pneumonia --Blood cultures No growth to date Usually Self catheters X 6 a day On IV Merrem>> transition to ertapenem Appreciate urology input Continue maintaining urinary catheter for 7-10 days Needs follow-up with urology upon discharge Norovirus infection-POA Conservative management Contact isolation Diarrhea improving Right Ankle wound Continue antibiotics as above Wound care consulted Follows with wound clinic as outpatient Possible adrenal insufficiency on chronic prednisone Rx Received IV Decadron BP stable continue home prednisone Chronic Troponin elevation H/O CAD as per records Continue aspirin, statin Denies chest pain Hyperlipidemia on statin 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 Left breast cancer S/P surgery/radiation Chronic anemia Hb at baseline Chronic pain on baclofen pump DVT Px: on Eliquis Code Status Full code Disposition PT OT prior to discharge Admission and Anticipated Discharge Date Admission Date: March 05, 2023 Subjective Patient is seen and examined at bedside Diarrhea resolved Patient has intermittent palpitations Multiple rounds of NSVTs on monitor Denies any nausea, vomiting, chest pain, dyspnea, dizziness, dysuria, hematuria No other complaints Review of Systems Review of Systems: All systems reviewed & are unremarkable except as noted in Subjective Physical Exam Physical Exam: Physical Exam: Vitals signs as noted above General Appearance:Chronic ill, no apparent distress Head: normocephalic, Atraumatic Eyes: normal inspection, EOMI Neck: supple, Trachea midline Respiratory/Chest: Normal breath sounds, CTA, No accessory muscle use Cardiovascular: S1, S2, + murmur Abdomen/GI:Soft, Non tender, Bowel sounds present Extremities/Musculoskeletal:normal inspection, 1+ Pedal edema Neurologic/Psych:AAOX3, grossly no focal neurological deficits, +Mild hearing impairment Skin: normal color, warm Results & Data Results & Data Vital Signs (Past 12 Hours) Vital Signs Temp Pulse Pulse Resp BP Pulse Ox O2 Del Method 03/08/23 15:42 85 03/08/23 15:20 36.9 C 85 19 127/73 94 Room Air 03/08/23 14:10 83 129/79 03/08/23 11:26 36.5 C 73 20 155/98 H 97 Room Air 03/08/23 10:36 83 03/08/23 07:56 36.9 C 73 18 129/79 96 Room Air Laboratory Results Short CBC 03/08/23 Range/Units 05:24 WBC 3.07 L (4.8-10.8) K/ul Hgb 10.7 L (12.0-16.0) g/dl Hct 33.4 L (37.0-47.0) % Plt Count 257 (130-400) K/uL BMP 03/08/23 05:24 Sodium 142 Potassium 4.1 Chloride 110 H Carbon Dioxide 27 BUN 17 Creatinine 0.72 Glucose 89 Calcium 7.6 L
[2023-03-08] MEDS: MELATONIN 3 MG TAB PO PRN (21:16)
[2023-03-09 06:22] LABS: Hematocrit (blood only) 33.4 % (37.0-47.0); Hemoglobin 10.6 g/dl (12.0-16.0); Mean Corpuscular Hemoglobin 28.3 pg (25.0-34.0); Mean Corpuscular Hgb Conc 31.7 g/dL (32.0-36.0); Mean Corpuscular Volume 89.3 fL (80.0-100.0); Mean Platelet Volume 10.7 fL (9.4-12.4); Platelet Count 252 K/uL (130-400); RDW Coefficient of Variation 14.8 % (11.5-14.5); RDW Standard Deviation 48.4 fL (36.4-46.3); Red Blood Count 3.74 M/uL (4.20-5.40); White Blood Count 3.38 K/ul (4.8-10.8)
[2023-03-09 06:32] LABS: BUN Creatinine Ratio 24.3 (10-20); Calcium 7.7 mg/dl (8.6-10.3); Creatinine Clr Calc Pharmacy 64.9 ml/min; Est GFR (African American) 95.1 ml/min; Est GFR (Non-African American) 82.1 ml/min; Magnesium 1.7 mg/dl (1.7-2.4); Potassium 3.9 mmol/L (3.5-5.1)
[2023-03-09] MEDS: PANTOprazole 40 MG TAB PO SCH (08:38)
[2023-03-09] MEDS: METOPROLOL TARTRATE 25 MG TAB PO SCH ×2 (08:38→20:30)
[2023-03-09] MEDS: predniSONE 10 MG TABLET PO SCH (08:40)
[2023-03-09] MEDS: APIXABAN 5 MG TABLET PO SCH ×2 (08:40→21:08)
[2023-03-09] MEDS: tiZANidine HCL 4 MG TABLET PO PRN ×2 (08:41→21:08)
[2023-03-09] MEDS: ADVANCED PROBIOTIC 1250 MG CAPSULE PO SCH (08:41)
[2023-03-09] MEDS: ASPIRIN 81 MG ECTAB PO SCH (08:42)
[2023-03-09] MEDS: OXYBUTYNIN CHLORIDE XL 5 MG TABCR PO SCH (08:42)
[2023-03-09] MEDS: ESCITALOPRAM OXALATE 20 MG TAB PO SCH (08:43)
[2023-03-09] MEDS: ATORVASTATIN 20 MG TAB PO SCH (08:43)
[2023-03-09] MEDS: MULTIVITAMIN TAB PO SCH (08:43)
--- NOTE | 2023-03-09 09:45 | Cardiology Progress Note ---
Date of Service March 09, 2023 Assessment & Plan (1) Paroxysmal atrial fibrillation with RVR: (2) CAD (coronary artery disease): (3) History of DVT (deep vein thrombosis): (4) UTI (urinary tract infection): Plan 72-year-old female admitted with complicated UTI and paroxysmal atrial fibrillation with rapid ventricular response. Patient spontaneously converted to sinus rhythm on admission. IV diltiazem discontinued. Low dose metoprolol tartrate initiated at 12.5 mg BID for rhythm control. Yesterday she had recurrent atrial tach lasting 10 beats and then 2 hour episode of afib RVR last evening. Metoprolol increased to 25 mg BID last night and she converted to NSR with IV diltiazem. No recurrent arrhythmias overnight Continue Eliquis 5 mg BID for stroke prophylaxis. Continue treatment for UTI/pyelonephritis per hospitalist. No further cardiac testing warranted. Case discussed with Dr. Vargas. Will sign off. Please call it integration architect provider with additional questions or concerns. Admission and Anticipated Discharge Date Admission Date: March 05, 2023 Supervising Physician Co-Signing Physician Notes Supervising Physician Attestation: I have personally performed a history and physical examination on the patient. I agree with the physician drug safety assistant's findings and plan as documented with the following additions. Subjective: Patient feeling subjectively improved. Working with physical therapy at the time my assessment. Telemetry reveals sinus rhythm in the 70s with occasional PVCs. Exam: Cardiovascular: Regular rhythm, no murmur, trace lower leg edema : Zuñiga catheter in place draining yellow urine Pulmonary: Lungs clear to auscultation bilaterally Assessment and Plan: Paroxysmal atrial fibrillation Coronary heart disease -Continue aspirin, Eliquis. Metoprolol tartrate dose increased to 25 mg twice daily on 03/08/2023 which the patient is tolerating, continue atorvastatin 20 mg daily. DVT prophylaxis: She is on full anticoagulation dose Kaylinquis Toby Vargas, DO Subjective Patient resting in bed. Had several episodes of atrial tach yesterday and last evening developed 2 hour episode of atrial fibrillation with RVR. Minimal symptoms. Treated with IV diltiazem and she received higher dose metoprolol at the time of onset. No recurrent arrhythmias overnight or this morning. Currently feeling well. Hoping to be discharged. Denies chest pain or SOB. NO palpitations or dizziness. Review of Systems Review of Systems: All systems reviewed & are unremarkable except as noted in HPI & below Physical Exam Constitutional: well nourished; no acute distress Cardiovascular: Rate/Rhythm: regular rate and regular rhythm Vessels: radial pulses present; no JVD and no carotid bruit Extremities: + edema (Mild bilateral pedal edema) Gastrointestinal (Abdomen): Inspection/Auscultation: abdomen normal to inspection and normal bowel sounds; abdomen not distended Percussion/Palpation: abdomen soft; abdomen nontender, no guarding and abdomen not rigid Neurologic: CN's II-XI intact bilaterally and moves all extremities Psychiatric: A+Ox3, euthymic affect Results & Data Vital Signs (Past 12 Hours) Vital Signs Temp Pulse Pulse Resp BP Pulse Ox Pulse Ox 03/09/23 07:19 67 03/09/23 07:07 36.7 C 72 18 133/77 96 03/09/23 04:02 36.5 C 70 20 122/69 96 03/09/23 01:00 95 03/08/23 22:00 75 03/08/23 22:34 36.5 C 72 20 129/87 97 O2 Del Method O2 Del Method 03/09/23 07:19 03/09/23 07:07 Room Air 03/09/23 04:02 Room Air 03/09/23 01:00 Room Air 03/08/23 22:00 03/08/23 22:34 Room Air Laboratory Results CBC 03/09/23 Range/Units 05:33 WBC 3.38 L (4.8-10.8) K/ul RBC 3.74 L (4.20-5.40) M/uL Hgb 10.6 L (12.0-16.0) g/dl Hct 33.4 L (37.0-47.0) % Plt Count 252 (130-400) K/uL Comprehensive Metabolic Panel 03/09/23 Range/Units 05:33 Sodium 141 (136-145) mmol/L Potassium 3.9 (3.5-5.1) mmol/L Chloride 108 H (98-107) mmol/L Carbon Dioxide 29 (21-32) mmol/L BUN 18 (6-23) mg/dl Creatinine 0.74 (0.6-1.2) mg/dl Glucose 88 (70-99(Fasting)) mg/dl Calcium 7.7 L (8.6-10.3) mg/dl Intake and Output 04/11/23 04/12/23 04/12/23 22:59 06:59 14:59 Intake Total 600 / 600 Output Total 1450 / 1652 2 Balance -850 / -1052 - Intake: Oral 600 / 600 Output: Urine Amount (Catheter) 1450 / 1650 200 / 1650 Zuñiga/Indwelling 1450 / 1650 200 / 1650 # Bowel Movements 2 / 2 Other: Other Intake Source sips Weight 66.7 kg Weight Measurement Method Built in Bedscale Diagnostic Findings CBC 03/09/23 Range/Units 05:33 WBC 3.38 L (4.8-10.8) K/ul RBC 3.74 L (4.20-5.40) M/uL Hgb 10.6 L (12.0-16.0) g/dl Hct 33.4 L (37.0-47.0) % Plt Count 252 (130-400) K/uL Comprehensive Metabolic Panel 03/09/23 Range/Units 05:33 Sodium 141 (136-145) mmol/L Potassium 3.9 (3.5-5.1) mmol/L Chloride 108 H (98-107) mmol/L Carbon Dioxide 29 (21-32) mmol/L BUN 18 (6-23) mg/dl Creatinine 0.74 (0.6-1.2) mg/dl Glucose 88 (70-99(Fasting)) mg/dl Calcium 7.7 L (8.6-10.3) mg/dl Intake and Output 03/08/23 03/09/23 03/09/23 22:59 06:59 14:59 Intake Total 600 / 600 Output Total 1450 1652 1651 Balance -850 / -1052 - Intake: Oral 600 / 600 Output: Urine Amount (Catheter) 1450 / 1650 200 / 1650 Zuñiga/Indwelling 1450 / 1650 200 / 1650 # Bowel Movements 2 / 2 Other: Other Intake Source sips Weight 66.7 kg Weight Measurement Method Built in Bedscale Medications Administered Current Inpatient Medications Apixaban (Apixaban 5 Mg Tablet) 5 mg PO BID MICHELLE Stop: 04/05/23 00:53 Last Admin: 03/09/23 08:40 Dose: 5 mg Aspirin (Aspirin 81 Mg Ectab) 81 mg PO DAILY MICHELLE Stop: 04/05/23 08:59 Last Admin: 03/09/23 08:42 Dose: 81 mg Atorvastatin Calcium (Atorvastatin 20 Mg Tab) 20 mg PO QAM [facility] Stop: 04/05/23 08:59 Last Admin: 03/09/23 08:43 Dose: 20 mg Doxycycline Hyclate (Doxycycline Hyclate 50 Mg Cap) 50 mg PO Q2D [facility] Stop: 04/05/23 08:59 Last Admin: 03/08/23 08:48 Dose: 50 mg Escitalopram Oxalate (Escitalopram Oxalate 20 Mg Tab) 20 mg PO QAM [facility] Stop: 04/05/23 08:59 Last Admin: 03/09/23 08:43 Dose: 20 mg Promethazine HCl 6.25 mg/ (Sodium Chloride) 50.25 mls @ 201 mls/hr IV Q6H PRN PRN Reason: Nausea And Vomiting Stop: 04/05/23 00:53 Ertapenem 1,000 mg/ Syringe 10 mls @ 2 mls/min IV Q24H [facility]; Protocol Stop: 03/16/23 03:59 Last Admin: 03/08/23 10:26 Dose: 2 mls/min Lactobacillus Acidophilus (Advanced Probiotic 1250 Mg Capsule) 2 cap PO DAILY [facility] Stop: 04/05/23 08:59 Last Admin: 03/09/23 08:41 Dose: 2 cap Melatonin (Melatonin 3 Mg Tab) 3 mg PO HS PRN PRN Reason: Insomnia Stop: 04/05/23 00:53 Last Admin: 03/08/23 21:16 Dose: 3 mg Metoprolol Tartrate (Metoprolol Tartrate 25 Mg Tab) 25 mg PO BID [facility] Stop: 04/07/23 20:59 Last Admin: 03/09/23 08:38 Dose: 25 mg Multivitamins (Multivitamin Tab) 1 tab PO DAILY [facility] Stop: 04/05/23 08:59 Last Admin: 03/09/23 08:43 Dose: 1 tab Oxybutynin Chloride (Oxybutynin Chloride Xl 5 Mg Tabcr) [facility] [place] Stop: 04/05/23 08:59 Last Admin: 03/09/23 08:42 Dose: 15 mg Pantoprazole Sodium (Pantoprazole 40 Mg Tab) [facility] [place] Stop: 04/05/23 08:59 Last Admin: 03/09/23 08:38 Dose: 40 mg Prednisone (Prednisone 10 Mg Tablet) 10 mg PO QAM [facility] Stop: 04/06/23 08:59 Last Admin: 03/09/23 08:40 Dose: 10 mg Tizanidine HCl (Tizanidine Hcl 4 Mg Tablet) 4 mg PO QID PRN PRN Reason: Muscle Spasm Stop: 04/05/23 00:53 Last Admin: 03/09/23 08:41 Dose: 4 mg (4) UTI (urinary tract infection) Hematuria presence: without hematuria Urinary tract infection type: acute cystitis Qualified Code(s): N30.00 - Acute cystitis without hematuria
[2023-03-09] MEDS: ERTAPENEM SODIUM 1,000 MG in SYRINGE 0 ML IV SCH (10:43)
--- NOTE | 2023-03-09 14:16 | Hospitalist Progress Note ---
Date of Service March 09, 2023 Assessment & Plan (1) Hypotension: Plan: Paroxysmal atrial fibrillation with RVR Spontaneously converted to sinus rhythm Multiple NSVTs Off IV diltiazem/amiodarone On Eliquis for anticoagulation Detention Deputy input noted Hypotension is resolved Continue metoprolol 25 mg bid on discharge Complicated UTI Bilateral hydroureteronephrosis Neurogenic bladder likely due to multiple sclerosis UTI likely due to intermittent self catheterization/Neurogenic Bladder/obstructive uropathy --CT ABD:No bowel obstruction. No bowel wall thickening. Moderate bilateral hydroureteronephrosis which is likely related to bladder given the thickened, irregular trabeculated bladder wall. Moderate-sized hiatal hernia, unchanged. --Urine culture growing ESBL Klebsiella pneumonia --Blood cultures No growth to date Usually Self catheters X 6 a day Urology recs noted. Continue maintaining urinary catheter for 7-10 days Needs follow-up with urology upon discharge Continue ertapenem for next 7 days to complete atleast 10 days of antibiotic therapy Patient asking about coming in for this daily instead of going to SNF for just antibiotics. 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 Patient denies any complaints today. Denies any chest pain or palpitations today. Denies any nausea, vomiting, abdominal pain. Physical Exam Constitutional: + well hydrated; no acute distress Eyes: PERRL, conjunctivae normal, anicteric sclerae ENMT: external ear and nose normal, oropharynx normal Respiratory: normal respiratory effort, lungs clear to auscultation Cardiovascular: Rate/Rhythm: regular rate and regular rhythm S1 S2 Gastrointestinal (Abdomen): normal bowel sounds, soft, nontender, no hepatosplenomegaly Musculoskeletal: Trace pedal edema Neurologic: PERRL, EOMI, accommodation nl, no face palsy, no dysarthria Psychiatric: A+Ox3, euthymic affect Genitourinary: Zuñiga in situ Results & Data Results & Data Vital Signs (Past 12 Hours) Vital Signs Temp Pulse Pulse Resp BP Pulse Ox O2 Del Method 03/09/23 11:33 36.7 C 69 19 139/71 93 Room Air 03/09/23 07:19 67 03/09/23 07:07 36.7 C 72 18 133/77 96 Room Air 03/09/23 04:02 36.5 C 70 20 122/69 96 Room Air Laboratory Results Abnormal lab results 03/09/23 03/09/23 Range/Units 05:33 05:33 WBC 3.38 L (4.8-10.8) K/ul RBC 3.74 L (4.20-5.40) M/uL Hgb 10.6 L (12.0-16.0) g/dl Hct 33.4 L (37.0-47.0) % MCHC 31.7 L (32.0-36.0) g/dL RDW Std Deviation 48.4 H (36.4-46.3) fL RDW Coeff of Tiffanie 14.8 H (11.5-14.5) % Chloride 108 H (98-107) mmol/L BUN/Creatinine Ratio 24.3 H (10-20) Calcium 7.7 L (8.6-10.3) mg/dl
[2023-03-09] MEDS: MELATONIN 3 MG TAB PO PRN (21:08)
[2023-03-10 06:33] LABS: Hematocrit (blood only) 33.4 % (37.0-47.0); Hemoglobin 10.9 g/dl (12.0-16.0); Mean Corpuscular Hemoglobin 28.7 pg (25.0-34.0); Mean Corpuscular Hgb Conc 32.6 g/dL (32.0-36.0); Mean Corpuscular Volume 87.9 fL (80.0-100.0); Mean Platelet Volume 10.8 fL (9.4-12.4); Platelet Count 274 K/uL (130-400); RDW Coefficient of Variation 14.8 % (11.5-14.5); RDW Standard Deviation 47.4 fL (36.4-46.3); White Blood Count 3.37 K/ul (4.8-10.8)
[2023-03-10 06:53] LABS: BUN Creatinine Ratio 22.1 (10-20); Creatinine Clr Calc Pharmacy 62.2 ml/min; Est GFR (African American) 90.7 ml/min; Est GFR (Non-African American) 78.2 ml/min; Potassium 3.9 mmol/L (3.5-5.1)
[2023-03-10] MEDS: ESCITALOPRAM OXALATE 20 MG TAB PO SCH (08:43)
[2023-03-10] MEDS: PANTOprazole 40 MG TAB PO SCH (08:44)
[2023-03-10] MEDS: ATORVASTATIN 20 MG TAB PO SCH (08:44)
[2023-03-10] MEDS: OXYBUTYNIN CHLORIDE XL 5 MG TABCR PO SCH (08:44)
[2023-03-10] MEDS: predniSONE 10 MG TABLET PO SCH (08:44)
[2023-03-10] MEDS: ASPIRIN 81 MG ECTAB PO SCH (08:44)
[2023-03-10] MEDS: MULTIVITAMIN TAB PO SCH (08:44)
[2023-03-10] MEDS: ADVANCED PROBIOTIC 1250 MG CAPSULE PO SCH (08:44)
[2023-03-10] MEDS: METOPROLOL TARTRATE 25 MG TAB PO SCH ×2 (08:44→20:30)
[2023-03-10] MEDS: tiZANidine HCL 4 MG TABLET PO PRN ×2 (08:45→20:31)
[2023-03-10] MEDS: APIXABAN 5 MG TABLET PO SCH ×2 (08:45→20:30)
[2023-03-10] MEDS: DOXYCYCLINE HYCLATE 50 MG CAP PO SCH (08:45)
--- NOTE | 2023-03-10 09:47 | Cardiology Progress Note ---
Date of Service March 10, 2023 Assessment & Plan (1) Paroxysmal atrial fibrillation with RVR: (2) CAD (coronary artery disease): (3) History of DVT (deep vein thrombosis): (4) UTI (urinary tract infection): Plan 72-year-old female admitted with complicated UTI and paroxysmal atrial fibrillation with rapid ventricular response. Patient spontaneously converted to sinus rhythm on admission. IV diltiazem discontinued. Low dose metoprolol tartrate initiated at 12.5 mg BID for rhythm control. Metoprolol increased to 25 mg BID for recurrent episode of PAF. Tolerating medications. No recurrent arrhythmias overnight Continue Eliquis 5 mg BID for stroke and DVT prophylaxis. Continue treatment for UTI/pyelonephritis per hospitalist. Awaiting discharge plans No further cardiac testing warranted. Case discussed with Dr. Vargas. Will sign off. Please call deputy coroner provider with additional questions or concerns. Admission and Anticipated Discharge Date Admission Date: March 05, 2023 Supervising Physician Co-Signing Physician Notes Supervising Physician Attestation: I have personally performed a history and physical examination on the patient. I agree with the physician assistant foreman's findings and plan as documented with the following additions. Subjective: Patient without acute cardiac concerns. Telemetry reveals sinus rhythm in the 80s. Brief episode of narrow complex tachycardia noted at 6:05 AM consistent with atrial tachycardia or flutter with spontaneous conversion sinus rhythm. Exam: Cardiovascular: Regular rhythm, trace edema, subtle 1/6 systolic murmur Data: Hemoglobin 10.8, platelet count 274 Assessment and Plan: -Problem list as noted above -Continue Eliquis 5 mg twice daily, metoprolol tartrate 25 mg twice daily. DVT prophylaxis: Patient on full dose anticoagulation with Eliquis. Toby Vargas, DO Subjective Patient resting in bed comfortably. Denies all cardiac complaints of CP, SOB, dizziness or palpitations. Awaiting discharge plans to continue IV antibiotics at SNF vs outpatient infusion center. Review of Systems Review of Systems: All systems reviewed & are unremarkable except as noted in HPI & below Physical Exam Constitutional: well nourished; no acute distress Cardiovascular: Rate/Rhythm: regular rate and regular rhythm Vessels: radial pulses present; no JVD and no carotid bruit Extremities: + edema (Mild bilateral pedal edema) Gastrointestinal (Abdomen): Inspection/Auscultation: abdomen normal to inspection and normal bowel sounds; abdomen not distended Percussion/Palpa tion: abdomen soft; abdomen nontender, no guarding and abdomen not rigid Neurologic: CN's II-XI intact bilaterally and moves all extremities Psychiatric: A+Ox3, euthymic affect Results & Data Vital Signs (Past 12 Hours) Vital Signs Temp Pulse Pulse Resp BP Pulse Ox Pulse Ox 03/10/23 08:00 03/10/23 07:14 37.0 C 74 18 129/73 93 03/10/23 05:06 36.4 C L 72 19 147/76 H 93 03/10/23 00:00 72 03/10/23 01:00 97 03/09/23 23:47 36.5 C 72 17 131/80 96 O2 Del Method O2 Del Method 03/10/23 08:00 Room Air 03/10/23 07:14 Room Air 03/10/23 05:06 Room Air 03/10/23 00:00 03/10/23 01:00 Room Air 03/09/23 23:47 Room Air Laboratory Results CBC 03/10/23 Range/Units 05:18 WBC 3.37 L (4.8-10.8) K/ul RBC 3.80 L (4.20-5.40) M/uL Hgb 10.9 L (12.0-16.0) g/dl Hct 33.4 L (37.0-47.0) % Plt Count 274 (130-400) K/uL Comprehensive Metabolic Panel 03/10/23 Range/Units 05:18 Sodium 142 (136-145) mmol/L Potassium 3.9 (3.5-5.1) mmol/L Chloride 108 H (98-107) mmol/L Carbon Dioxide 28 (21-32) mmol/L BUN 17 (6-23) mg/dl Creatinine 0.77 (0.6-1.2) mg/dl Glucose 86 (70-99(Fasting)) mg/dl Calcium 8.0 L (8.6-10.3) mg/dl Intake and Output 03/09/23 03/10/23 03/10/23 22:59 06:59 14:59 Intake Total 300 / 740 Output Total 200 / 1750 900 / 1750 Balance -200 / -1010 -600 / -1010 Intake: Oral 300 / 740 Output: Urine Amount (Catheter) 200 / 1750 900 / 1750 Zuñiga/Indwelling 200 / 1750 900 / 1750 Other: Weight 66.3 kg Diagnostic Findings Telemetry reviewed: NSR with rare PAC, PVC; No recurrent atrial fibrillation (4) UTI (urinary tract infection) Hematuria presence: without hematuria Urinary tract infection type: acute cystitis Qualified Code(s): N30.00 - Acute cystitis without hematuria
[2023-03-10] MEDS: ERTAPENEM SODIUM 1,000 MG in SYRINGE 0 ML IV SCH (11:37)
--- NOTE | 2023-03-10 17:44 | Hospitalist Progress Note ---
Date of Service March 10, 2023 Assessment & Plan (1) Hypotension: Plan: Paroxysmal atrial fibrillation with RVR Spontaneously converted to sinus rhythm Multiple NSVTs Off IV diltiazem/amiodarone On Eliquis for anticoagulation Assembler Filters input noted Hypotension is resolved Continue metoprolol 25 mg bid on discharge Complicated UTI Bilateral hydroureteronephrosis Neurogenic bladder likely due to multiple sclerosis UTI likely due to intermittent self catheterization/Neurogenic Bladder/obstructive uropathy --CT ABD:No bowel obstruction. No bowel wall thickening. Moderate bilateral hydroureteronephrosis which is likely related to bladder given the thickened, irregular trabeculated bladder wall. Moderate-sized hiatal hernia, unchanged. --Urine culture growing ESBL Klebsiella pneumonia --Blood cultures No growth to date Usually Self catheters X 6 a day Urology recs noted. Continue maintaining urinary catheter for 7-10 days Needs follow-up with urology upon discharge Continue ertapenem to complete atleast 10 days of antibiotic therapy CM working on possible daily IV Abx at our [facility] Norovirus infection-POA Conservative management Contact isolation Diarrhea improved Right Ankle wound Continue antibiotics as above Wound care consulted Follows with wound clinic as outpatient Possible adrenal insufficiency on chronic prednisone Rx Received IV Decadron BP stable Continue home prednisone Chronic Troponin elevation H/O CAD as per records Continue aspirin, statin Denies chest pain Hyperlipidemia on statin 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 Left breast cancer S/P surgery/radiation Chronic anemia Hb at baseline Chronic pain on baclofen pump DVT Px: on Eliquis Code Status Full code Disposition PT OT noted CM working on [facility] infusion for iv ertapenem vs facility I spent a total of 30 minutes coordinating, documenting and providing care for this patient excluding time spent in performance of separately billed services Admission and Anticipated Discharge Date Admission Date: March 05, 2023 Subjective Patient seen and examined. Patient denies any complaints today. Physical Exam Constitutional: + well hydrated; no acute distress Eyes: PERRL, conjunctivae normal, anicteric sclerae ENMT: external ear and nose normal, oropharynx normal Respiratory: normal respiratory effort, lungs clear to auscultation Cardiovascular: Rate/Rhythm: regular rate and regular rhythm S1 S2 Gastrointestinal (Abdomen): normal bowel sounds, soft, nontender, no hepatosplenomegaly Musculoskeletal: Trace pedal edema Neurologic: PERRL, EOMI, accommodation nl, no face palsy, no dysarthria Psychiatric: A+Ox3, euthymic affect Results & Data Results & Data Vital Signs (Past 12 Hours) Vital Signs Temp Pulse Resp BP Pulse Ox O2 Del Method 03/10/23 15:42 36.3 C L 68 19 111/72 97 Room Air 03/10/23 11:08 36.6 C 70 19 107/72 94 Room Air 03/10/23 08:00 Room Air 03/10/23 07:14 37.0 C 74 18 129/73 93 Room Air Laboratory Results Abnormal lab results 03/10/23 03/10/23 Range/Units 05:18 05:18 WBC 3.37 L (4.8-10.8) K/ul RBC 3.80 L (4.20-5.40) M/uL Hgb 10.9 L (12.0-16.0) g/dl Hct 33.4 L (37.0-47.0) % RDW Std Deviation 47.4 H (36.4-46.3) fL RDW Coeff of Tiffanie 14.8 H (11.5-14.5) % Chloride 108 H (98-107) mmol/L BUN/Creatinine Ratio 22.1 H (10-20) Calcium 8.0 L (8.6-10.3) mg/dl
[2023-03-10] MEDS: MELATONIN 3 MG TAB PO PRN (22:11)
[2023-03-11] MEDS: METOPROLOL TARTRATE 25 MG TAB PO SCH (08:40)
[2023-03-11] MEDS: predniSONE 10 MG TABLET PO SCH (08:40)
[2023-03-11] MEDS: APIXABAN 5 MG TABLET PO SCH (08:40)
[2023-03-11] MEDS: MULTIVITAMIN TAB PO SCH (08:40)
[2023-03-11] MEDS: ESCITALOPRAM OXALATE 20 MG TAB PO SCH (08:40)
[2023-03-11] MEDS: ADVANCED PROBIOTIC 1250 MG CAPSULE PO SCH (08:41)
[2023-03-11] MEDS: ASPIRIN 81 MG ECTAB PO SCH (08:41)
[2023-03-11] MEDS: PANTOprazole 40 MG TAB PO SCH (08:41)
[2023-03-11] MEDS: ATORVASTATIN 20 MG TAB PO SCH (08:41)
[2023-03-11] MEDS: OXYBUTYNIN CHLORIDE XL 5 MG TABCR PO SCH (08:41)
[2023-03-11] MEDS: tiZANidine HCL 4 MG TABLET PO PRN (09:08)
[2023-03-11] MEDS: ERTAPENEM SODIUM 1,000 MG in SYRINGE 0 ML IV SCH (11:06)
--- NOTE | 2023-03-11 11:07 | Cardiology Progress Note ---
Date of Service March 11, 2023 Assessment & Plan (1) Paroxysmal atrial fibrillation with RVR: (2) CAD (coronary artery disease): (3) History of DVT (deep vein thrombosis): (4) UTI (urinary tract infection): Plan 72-year-old female admitted with complicated UTI and paroxysmal atrial fibrillation with rapid ventricular response. Patient spontaneously converted to sinus rhythm on admission. IV diltiazem discontinued. Low dose metoprolol tartrate initiated at 12.5 mg BID for rhythm control. Metoprolol increased to 25 mg BID for recurrent episode of PAF. Tolerating medications. Continue on discharge. No recurrent arrhythmias overnight Continue Eliquis 5 mg BID for stroke and DVT prophylaxis. Continue treatment for UTI/pyelonephritis per hospitalist. Awaiting discharge plans, likely today. No further cardiac testing warranted. Case discussed with Dr. Vargas. Will sign off. Please call branch operation evaluation manager provider with additional questions or concerns. Admission and Anticipated Discharge Date Admission Date: March 05, 2023 Supervising Physician Co-Signing Physician Notes Supervising Physician Attestation: I have personally performed a history and physical examination on the patient. I agree with the physician optometrist assistant's findings and plan as documented with the following additions. Subjective: Patient without cardiac complaints. Subjective palpitations resolved. Exam: Cardiovascular: Regular rate and rhythm, no murmurs, trace edema Pulmonary: Lungs clear to auscultation bilaterally Assessment and Plan: Plan as noted above Toby Vargas, DO Subjective Patient out of bed resting comfortably. Denies SOB, CP, or palpitations. No recurrent afib. Review of Systems Review of Systems: All systems reviewed & are unremarkable except as noted in HPI & below Physical Exam Constitutional: well nourished; no acute distress Cardiovascular: Rate/Rhythm: regular rate and regular rhythm Vessels: radial pulses present; no JVD and no carotid bruit Extremities: + edema (Mild bilateral pedal edema) Gastrointestinal (Abdomen): Inspection/Auscultation: abdomen normal to inspection and normal bowel sounds; abdomen not distended Percussion/Palpation: abdomen soft; abdomen nontender, no guarding and abdomen not rigid Neurologic: CN's II-XI intact bilaterally and moves all extremities Psychiatric: A+Ox3, euthymic affect Results & Data Vital Signs (Past 12 Hours) Vital Signs Temp Pulse Resp BP Pulse Ox Pulse Ox O2 Del Method 03/11/23 07:40 36.7 C 73 16 126/83 93 Room Air 03/11/23 02:00 36.7 C 67 16 139/68 96 Room Air 03/11/23 01:00 96 03/10/23 23:38 36.5 C 63 16 102/66 95 Room Air O2 Del Method 03/11/23 07:40 03/11/23 02:00 03/11/23 01:00 Room Air 03/10/23 23:38 Laboratory Results Intake and Output 03/10/23 03/11/23 03/11/23 22:59 06:59 14:59 Output Total 600 / 1450 400 / 1450 Balance -600 / -1130 -400 / -1130 Output: Urine Amount (Catheter) 600 / 1450 400 / 1450 Zuñiga/Indwelling 600 / 1450 400 / 1450 Other: Other Intake Source sips Weight 66.3 kg Weight Measurement Method Built in [facility] Diagnostic Findings Telemetry reviewed: NSR in the 's. no recurrent afib. Medications Administered Current Inpatient Medications Apixaban (Apixaban 5 Mg Tablet) 5 mg PO BID [facility] Stop: 04/05/23 00:53 Last Admin: 03/11/23 08:40 Dose: 5 mg Aspirin (Aspirin 81 Mg Ectab) 81 mg PO DAILY [facility] Stop: 04/05/23 08:59 Last Admin: 03/11/23 08:41 Dose: 81 mg Atorvastatin Calcium (Atorvastatin 20 Mg Tab) 20 mg PO QAM [facility] Stop: 04/05/23 08:59 Last Admin: 03/11/23 08:41 Dose: 20 mg Doxycycline Hyclate (Doxycycline Hyclate 50 Mg Cap) 50 mg PO Q2D [facility] Stop: 04/05/23 08:59 Last Admin: 03/10/23 08:45 Dose: 50 mg Escitalopram Oxalate (Escitalopram Oxalate 20 Mg Tab) 20 mg PO QAM [facility] Stop: 04/05/23 08:59 Last Admin: 03/11/23 08:40 Dose: 20 mg Promethazine HCl 6.25 mg/ (Sodium Chloride) 50.25 mls @ 201 mls/hr IV Q6H PRN PRN Reason: Nausea And Vomiting Stop: 04/05/23 00:53 Ertapenem 1,000 mg/ Syringe 10 mls @ 2 mls/min IV Q24H [facility]; Protocol Stop: 03/16/23 03:59 Last Admin: 03/10/23 11:37 Dose: 2 mls/min Lactobacillus Acidophilus (Advanced Probiotic 1250 Mg Capsule) 2 cap PO DAILY [facility] Stop: 04/05/23 08:59 Last Admin: 03/11/23 08:41 Dose: 2 cap Melatonin (Melatonin 3 Mg Tab) 3 mg PO HS PRN PRN Reason: Insomnia Stop: 04/05/23 00:53 Last Admin: 03/10/23 22:11 Dose: 3 mg Metoprolol Tartrate (Metoprolol Tartrate 25 Mg Tab) 25 mg PO BID [facility] Stop: 04/07/23 20:59 Last Admin: 03/11/23 08:40 Dose: 25 mg Multivitamins (Multivitamin Tab) 1 tab PO DAILY [facility] Stop: 04/05/23 08:59 Last Admin: 03/11/23 08:40 Dose: 1 tab Oxybutynin Chloride (Oxybutynin Chloride Xl 5 Mg Tabcr) 15 mg PO QAM [facility] Stop: 04/05/23 08:59 Last Admin: 03/11/23 08:41 Dose: 15 mg Pantoprazole Sodium (Pantoprazole 40 Mg Tab) 40 mg PO QAM [facility] Stop: 04/05/23 08:59 Last Admin: 03/11/23 08:41 Dose: 40 mg Prednisone (Prednisone 10 Mg Tablet) 10 mg PO QAM [facility] Stop: 04/06/23 08:59 Last Admin: 03/11/23 08:40 Dose: 10 mg Tizanidine HCl (Tizanidine Hcl 4 Mg Tablet) 4 mg PO QID PRN PRN Reason: Muscle Spasm Stop: 04/05/23 00:53 Last Admin: 03/11/23 09:08 Dose: 4 mg (4) UTI (urinary tract infection) Hematuria presence: without hematuria Urinary tract infection type: acute cystitis Qualified Code(s): N30.00 - Acute cystitis without hematuria
--- NOTE | 2023-03-11 14:57 | Discharge Summary ---
Date of Service March 11, 2023 Admission HPI Per Admitting Provider History obtained from patient, family, and records. Medical history significant for CAD, PSVT, hypertension, hyperlipidemia, history of PE DVT status post IVC filter placement on Eliquis, MS on chronic prednisone and Aubagio Rx, history of neurogenic bladder, history ESBL E. coli UTI, L breast cancer status post surgery/radiation, past history L ankle osteomyelitis, chronic anemia (baseline hemoglobin 10-11), rosacea on doxycycline, skin cancer status post surgery, chronic pain on baclofen pump, past tobacco abuse. Last confinement September 2022 for sepsis secondary to complicated UTI. Multiple organisms on urine CS. Patient discharged on cefdinir course. 2 days history of achy lower abdominal pain, nausea symptoms. Worsening watery diarrhea symptoms. Palpitations causing chest discomfort and shortness of breath. Symptoms similar to urine infection from last year as per family. Ceftriaxone administered at the ER. Patient went into rapid A-fib, Heart rate 180s. IV Cardizem boluses and infusion administered at the ER. SBP currently 90s, cardiac rate 130s. MED hx as above : OPERATIONS: She has had left mastectomy, left hip surgery, IVC filter placem ent, hysterectomy, shoulder surgery, dental surgery, spinal pain pump placement, appendectomy family by fracture surgery FAMILY HISTORY: thyroid cancer, heart disease PERSONAL AND SOCIAL HISTORY: Past tobacco abuse. No chronic intake of alcoholic beverages. 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 Admission Exam Per Admitting Provider GENERAL: Comfortable, pleasant, slightly hard of hearing, no respiratory distress SKIN: Pallor, warm HEENT: Pale palpebral conjunctivae, no ptosis, dry buccal mucosa NECK : Supple, no tenderness CHEST : CTA, no tenderness HEART : Irregular, tachycardic, no obvious murmurs ABDOMEN: Some distention, hypogastric tenderness EXTREMITIES : No LE swelling/tenderness, no other conspicuous deformities noted NEUROLOGIC : Coherent, no facial asymmetry, mild hearing impairment, no other gross focality Principal Diagnosis Paroxysmal atrial fibrillation Complicated urinary tract infection Norovirus infection Discharge Exam Constitutional + well hydrated; no acute distress Eyes PERRL, conjunctivae normal, anicteric sclerae ENMT external ear and nose normal, oropharynx normal Respiratory normal respiratory effort, lungs clear to auscultation Cardiovascular Rate/Rhythm: regular rate and regular rhythm S1 S2 Gastrointestinal (Abdomen) normal bowel sounds, soft, nontender, no hepatosplenomegaly Neurologic PERRL, EOMI, accommodation nl, no face palsy, no dysarthria Psychiatric A+Ox3, euthymic affect Discharge Data Allergies Allergy/AdvReac Type Severity Reaction Status Date / Time No Known Allergies Allergy Verified 11/30/22 14:17 Consultations 03/05/23 21:01 ED Decision to Admit Stat 03/06/23 00:54 Consult Cardiology Routine Consult Urology Routine Ordered Studies 03/05/23 16:19 CT abd pelvis IV con only Stat Hospital Course (1) Hypotension: Paroxysmal atrial fibrillation with RVR Spontaneously converted to sinus rhythm Had multiple NSVTs Required IV diltiazem/amiodarone initially Was evaluated by [facility] Started on metoprolol 25 mg bid on discharge Continue eliquis Hypotension resolved Complicated UTI Bilateral hydroureteronephrosis Neurogenic bladder likely due to multiple sclerosis UTI likely due to intermittent self catheterization/Neurogenic Bladder/obstructive uropathy --CT ABD:No bowel obstruction. No bowel wall thickening. Moderate bilateral hydroureteronephrosis which is likely related to bladder given the thickened, irregular trabeculated bladder wall. Moderate-sized hiatal hernia, unchanged. --Urine culture growing ESBL Klebsiella pneumonia --Blood cultures No growth to date Usually Self catheters X 6 a day Urology evaluated and recommended maintaining urinary catheter for 7-10 days Patient to follow up with Urology outpatient Continue ertapenem IV to complete treatment. Arrangement for daily infusion made at [facility] Patient and daughter educated about this Norovirus infection-POA Diarrhea resolved Right Ankle wound Follows with wound clinic as outpatient Got IV decadron earlier in view of possible adrenal insufficiency with hypotension Continue home prednisone Chronic Troponin elevation H/O CAD as per records Continue aspirin, statin 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 Left breast cancer S/P surgery/radiation Chronic anemia Hb at baseline Chronic pain On baclofen pump Total Time Total Time Spent Total Time Spent (In Minutes): 50 Total Time Includes: Examination of the Patient, Discharge Planning, Medication Reconciliation and Communication With Other Providers Discharge Plan Discharge Items Patient Disposition: Home - Self-Care Reason For Visit: RAPID AF, COMP UTI Discharge Diagnosis: Paroxysmal atrial fibrillation Complicated urinary tract infection Norovirus infection Activity: Resume your previous activity Non-emergency contact: Primary Care Provider Call non-emergency contact if: you have any medication questions and your symptoms worsen Follow-up/Referrals: Dennis Bridges DO [Physician] - (The urology office will call you with an appointment.) Simi Hernandez CRNP [Primary Care Provider] - (Date & Time 03/17/2023 3:00 PM Provider KEVIN Velasquez Department Family Practice [facility] ) Diet: Heart Healthy Addtl Attending Provider Instructions: Mrs Shelby You came to the hospital complaining of abdominal pain, fever, nausea, diarrhea You were found to have Norovirus infection. You were also noted to be in Atrial Fibrillation. You were evaluated by Cardiology and started on metoprolol for this. You also had complicated urinary tract infection and you are being discharged on a daily IV antibiotics that you will come to get from the [facility] center for the next 5 days. Please ensure follow up with your Primary Doctor. It was a pleasure taking care of you. Pending Studies at Discharge: No Stand-Alone Forms: My [facility], Smoking Cessation Medications and DC Order Prescriptions: New metoprolol tartrate 25 mg Tablet 25 mg PO BID Qty: 60 0RF Continued prednisone 10 mg tablet 10 mg PO QAM oxybutynin chloride 15 mg tablet extended release 24hr 15 mg PO QAM cholecalciferol (vitamin D3) 1,000 unit capsule 1,000 units PO QAM escitalopram oxalate [Lexapro] 20 mg tablet 20 mg PO QAM teriflunomide [Aubagio] 14 mg tablet 14 mg PO QPM tizanidine [Zanaflex] 4 mg tablet 4 mg PO QID PRN (Reason: Muscle Spasm) Rx Instructions: MUST BE NAME BRAND atorvastatin [Lipitor] 20 mg tablet 20 mg PO QAM doxycycline hyclate 50 mg capsule 50 mg PO Q OTHER DAY azelaic acid 15 % gel 1 applic TOPICAL DAILY multivitamin Tablet 1 tab PO DAILY aspirin 81 mg Tablet,Delayed Release (Dr/Ec) 81 mg PO DAILY acetaminophen 500 mg Tablet 500 mg PO Q6H PRN (Reason: Pain) melatonin 3 mg Tablet 3 mg PO HS PRN (Reason: Insomnia) omeprazole 40 mg capsule,delayed release(DR/EC) 40 mg PO QAM Eliquis 5 mg tablet 5 mg PO BID Qty: 60 0RF Discharge Orders: Discharge Order (Routine); Ordered 03/11/23 Ordered By: Haylie Ernst/Other Patient Handouts: Anatomy of the Female Urinary Tract, UTIs Understanding, Indwelling Urinary Catheter Dc, Leg Bag Care Dc, Central Line Care Dc, AFib Preventing Stroke, AFib, Intravenous (IV) Line and Tubes Admission Data Admit Date/Time: 03/05/23 22:45 Attending Provider: Haylie Serrano I. Admit Provider: Jerome Clemente Primary Care Provider: Simi Hernandez Other Providers: Jerome Clemente ; Blanche Agudelo ; López Treviño ; Toby Vargas ; Osito Goodwin ; Bertin Carpenter ; Karson Morgan ; Morales Luo ; Camille Cuevas ; Cecille Street ; Blanche Orozco ; Noah Bullard ; Angeli Connor ; Dennis Bridges ; Fernando Armenta Other Interventions: Discharge Summary Assessment (RN) Last Done: 03/11/23 15:06
--- NOTE | 2023-03-15 10:24 | Coding Query ---
SEPSIS To promote full compliance with coding requirements relating to patient care, physician participation is requested in all cases of rail filler uncertainty. Please assist us with the question(s) below: The medical record reflects the following clinical findings: Pt admitted with comolicated UTI, Norovirus and paroxysmal atrial fibrillation. H/P documented hypotension 2nd to rapid afib secondary to Sepsis 2nd to complicated UTI. Please check below the diagnosis that was treated during this IP stay if applicable. Thanks for your help. Ole Stark, [facility] ____ ( )Bacteremia (Nonspecific laboratory finding of bacteria in the blood) Specify Organism ( ) Present on Admission ( ) Not present on admission ( ) Unable to clinically determine ( ) Septicemia (Systemic disease associated with the presence of pathogenic microorganisms in the blood): Specify Organism ( ) Present on Admission ( ) Not present on admission ( ) Unable to clinically determine ( ) Sepsis Specify Organism Specify Associated Condition/Diagnosis ( ) Present on Admission ( ) Not present on admission ( ) Unable to clinically determine ( ) Severe Sepsis (Sepsis associated with acute organ dysfunction) Specify Organism Specify Associated Condition/Diagnosis ( ) Present on Admission ( ) Not present on admission ( ) Unable to clinically determine ( ) Septic Shock (Severe sepsis with acute circulatory failure, unexplained by other causes) ( ) Present on Admission ( ) Not present on admission ( ) Unable to clinically determine (x) Other: Sepsis is possible in the setting of Urinary tract infection, tachycardia and hypotension. Hypotension could also be due to Afib with RVR and diarrhea MTDD
== END 2023-03-11 16:15 | disposition home or self-care (01) | DRG 698 ==
LOC: ED 16:00 → SUATTDRO 22:45 → 4W 22:45

== ENCOUNTER 2023-05-08 16:07 | Inpatient (IN) ==
[2023-05-08] MEDS ORDERED: SODIUM CHLORIDE 0.9% 1000ML 1,000 ML IV ONE (17:21)
[2023-05-08 17:34] LABS: Appearance Urine Clear (Clear); Bilirubin Urine Negative (Negative); Blood Urine Negative (Negative); Color Urine Dark Yellow; Glucose Urine UA Negative (Negative); Ketones Urine Trace (Negative); Leukocyte Esterase Urine Negative (Negative); Nitrite Urine Negative (Negative); Protein Urine Negative (Negative); Urobilinogen Urine Negative (Negative); pH Urine 5.5 (4.5-7.5)
--- NOTE | 2023-05-08 17:34 | Emergency Department Note ---
Impression & Plan Sepsis, Cellulitis of left lower leg, Chronic ulcer of right foot Admit to the [facility] ED Provider Note NAME: NADEEN ANNE AGE: 72 SEX: F ARRIVES VIA: Ambulance INFORMANT: Patient and her daughter ED PROVIDER(S): Candis Ann DO CHIEF COMPLAINT: Generalized weakness, fatigue and chills PLAN: Disposition: Admit to the [facility] Condition: Guarded MEDICAL DECISION MAKING: This is a 72-year-old female patient who presents to the emergency department with generalized weakness over the past couple days and worsening chills today. The patient has a history of sepsis in the past secondary to urinary tract infection with resulting atrial fibrillation. The family became concerned today when he noticed that she had increased sleep and was complaining of chills. On presentation to the ER, the patient was hypotensive. She has an elevated white blood cell count, lactate and procalcitonin. She also has a an elevated troponin. Possible sources of her sepsis could be urinary tract, pneumonia, or skin as she has erythema to both lower extremities and an open wound on her right heel. However, the urine is clean as is the chest x-ray. We were able to get access to the right heel and obtained an x-ray which showed no evidence of osteomyelitis but there is not obvious ulceration there which could be infected and there is moderate cellulitis of the left lower extremity. Patient was empirically treated with a dose of IV cefepime. Patient was fluid resuscitated with 30 mL/kg of IV crystalloid therapy and empirically treated with IV cefepime. [facility] will [facility] for further management. Triage Nursing notes reviewed and agree with them. Additional history obtained from the daughters who are at the bedside External medical records were reviewed including previous admissions and primary care records out of [facility] system Vital Signs: reviewed and remarkable for hypotension Differential diagnosis: Sepsis, UTI, septic shock, bacteremia, osteomyelitis, infected skin wound ER treatment provided: Cardiac monitoring Twelve-lead EKG Normal saline bolus-1900 cc IV cefepime Diagnostics interpreted by me: ECG: Normal sinus rhythm at a rate of [address] segment elevation or signs of ischemia. There is no ectopy. Cardiac Monitoring: Normal sinus rhythm at 84 Laboratory studies: See below Imaging studies: As per my independent interpretation Portable chest x-ray: No acute pulmonary infiltrates or opacities Right foot x-ray: No bony breakdown to suggest osteomyelitis of the heel HPI: 72/F arrives for evaluation of fatigue and chills. Patient has been feeling weak and fatigued over the past couple of days and felt cold and had chills earlier today. The patient had a colonoscopy done 3 days ago to investigate anemia. Patient has a history of sepsis secondary to UTI. PAST MEDICAL HISTORY:See Below PAST SURGICAL HISTORY:See Below FAMILY HISTORY:See Below SOCIAL HISTORY:See Below HOME MEDICATIONS:See list ALLERGIES:None VITALS:See Below PHYSICAL EXAMINATION: HEENT: Head - normocephalic and atraumatic. Pupils are equal, round, and reactive to light. Extraocular eye muscles are intact, and sclera are anicteric. Nose -dry nasal mucosa without discharge. Mouth -extremely dry buccal mucosa. Oropharynx is nonerythematous and there is no tonsillar exudate or edema noted. Neck: Supple; no cervical lymphadenopathy, or auscultated bruits. Heart: Regular rate and rhythm. There is a normal S1 and S2 with no murmurs, clicks, or gallops appreciated. Lungs: Clear to auscultation bilaterally with no wheezes, rales, or rhonchi. Abdomen: Soft, completely nontender, nondistended, with good bowel sounds. There are no palpable pulsatile masses or hepatosplenomegaly. There is no guarding, rigidity, or rebound noted. Extremities: No evidence of cyanosis, clubbing, or edema. There are easily palpable peripheral pulses. Skin: warm and dry with good turgor and no rashes. ED COURSE: Times/Reassessments: 1700 patient was evaluated in room A-2. A complete history and physical was performed. A septic protocol was performed. Patient was bolused with IV normal saline solution as she was hypotensive. I did review records from [facility] to find the patient's normal blood pressures which are in the 110s and 120s. Urinalysis was unremarkable. Chest x-ray was unremarkable. We did perform an x-ray of the right heel to rule out osteomyelitis. This was negative. Patient remained hemodynamically stable after receiving the IV crystalloids. I discussed the case with the hospitalist and they will evaluate for further management. I have personally spent greater than 70 minutes of critical care time in the direct management of this patient. This includes bedside care, interpretation of diagnostic studies, and testing, discussion with consultants, patient, and family members, and other required patient management activities. This 70 minutes is in excess of all separately billable procedures. Candis Ann DO Past Med/Surg History Medical History (Updated 05/09/23 @ 14:09 by Candis Ann DO) Anemia CAD (coronary artery disease) Non-obstructive per 06/2021 cardiac cath GERD (gastroesophageal reflux disease) controlled, stable per pt History of blood transfusion History of DVT (deep vein thrombosis) ~6 yrs ago History of GI bleed Upper GIB (2019) felt 2/2 NSAID use History of non-ST elevation myocardial infarction (NSTEMI) 06/2021 (had heart cath, no stents) History of pulmonary embolism ~ 6 yrs ago, IVC filter still in place History of recent hospitalization 09/2022 [facility] - sepsis History of supraventricular tachycardia Hx of gastric ulcer 02/2021 HX: breast cancer Left breast cancer with surgery and chemo/radiation-left arm restriction Hypertension controlled, stable per pt Limb alert care status left arm Multiple sclerosis Follows with Dr. Walker/[facility] Stable Neurogenic bladder SELF CATH 2-3 X'S PER DAY *RECENT HOSPITALIZATION FOR UTI Osteoarthritis of right shoulder Osteoporosis Raynaud disease Surgical History H/O left mastectomy with lymph node removal>LEFT ARM RESTRICTION History of appendectomy History of cardiac cath Cardiac cath (07/06/21; [facility]) > Right dominant coronary system. No evidence of aortic stenosis. Normal left ventricular filling pressures. Nonobstructive disease involving the ostial LAD. No evidence of acute coronar y syndrome. Approximately 50% ostial stenosis of the LAD. There was some very mild disease at the ostium of the left circumflex. Recommendations: Medical management. History of colonoscopy History of esophagogastroduodenoscopy (EGD) History of open reduction and internal fixation (ORIF) procedure "left hip" History of tooth extraction Presence of intrathecal pump baclofen pump in place--status post revision/replacement 08/10/2022 S/P IVC filter S/P partial hysterectomy S/p reverse total shoulder arthroplasty right: 05/25/22 LMA#4. No postop issues per anesthesia progress note. Family History Mother Heart disorder Other No family history of adverse response to anesthesia Social History Smoking Status: Former smoker packs per day: 1; Second Hand Exposure: No; Do You Dip or Chew Tobacco: No; Hx Alcohol Use: No Hx Substance Use: No Preferred Language: Armenian Communication Ability: Effective Visual Impairment: Limited Hearing Ability: Use of Hearing Aid [employer] Supervisor Required: No Beliefs That Will Affect Care: None marital status: / Current Living Situation: Alone Current Living Situation Comment: home alone- uses walker but needs a new one current occupational status: retired How many Children do You have: 3 Feels Safe at Home: Yes Childhood Exposure to Second-Hand Smoke: Yes Diet: regular caffeine: Yes Assistive Devices: Walker and Wheelchair Allergies Allergies Allergy/AdvReac Type Severity Reaction Status Date / Time No Known Allergies Allergy Verified 05/08/23 19:26 Home Meds Home Medications Medication Instructions Recorded Confirmed cholecalciferol (vitamin D3) 25 1,000 units PO QAM 09/18/18 05/08/23 mcg (1,000 unit) capsule escitalopram oxalate 20 mg tablet 20 mg PO QAM 09/18/18 05/08/23 (Lexapro) oxybutynin chloride 15 mg 15 mg PO QAM 09/18/18 05/08/23 tablet,extended release 24 hr prednisone 10 mg tablet 10 mg PO QAM 09/18/18 05/08/23 omeprazole 40 mg capsule,delayed 40 mg PO QAM 07/06/21 05/08/23 release teriflunomide 14 mg tablet 14 mg PO QPM 05/13/22 05/08/23 (Aubagio) tizanidine 4 mg tablet (Zanaflex) 4 mg PO QID 05/13/22 05/08/23 atorvastatin 20 mg tablet (Lipitor) 20 mg PO QAM 08/10/22 05/08/23 doxycycline hyclate 50 mg capsule 50 mg PO Q OTHER DAY Rosacea 08/10/22 05/08/23 azelaic acid 15 % topical gel 1 applic topical DAILY 10/21/22 05/08/23 acetaminophen 500 mg tablet 500 mg PO Q6H PRN Pain 03/05/23 05/08/23 aspirin 81 mg tablet,delayed 81 mg PO DAILY 03/05/23 05/08/23 release melatonin 3 mg tablet 3 mg PO HS PRN Insomnia 03/05/23 05/08/23 multivitamin 1 tab PO DAILY 03/05/23 05/08/23 metoprolol tartrate 25 mg tablet 12.5 mg PO BID 05/08/23 05/08/23 Previous Rx's Medication Instructions Recorded apixaban 5 mg tablet (Eliquis) 5 mg PO BID #60 tabs 07/09/21 Results & Data (ED) Vital Signs Vital Signs - 24 hr 05/08/23 16:27 05/08/23 16:31 05/08/23 17:22 Temperature 37.6 C H Temperature Source Oral Pulse Rate 88 87 Pulse Rate [Right Finger] 84 Pulse Rhythm [Right Finger] Respiratory Rate 16 16 Respiratory Effort / Characteristics Non-Labored Spontaneous Respiratory Depth Normal Blood Pressure 101/60 Blood Pressure [Right Arm] 95/55 L Blood Pressure Mean 73 Blood Pressure Mean [Right Arm] 68 Pulse Oximetry 96 97 Oxygen Delivery Method Room Air Room Air Sepsis Recent Fever Within 48 Hours Yes Sepsis New/Unexplained Change in Mental Status N/A Sepsis Action Taken by Nursing No Action Required 05/08/23 17:54 05/08/23 18:06 05/08/23 17:51 Temperature Temperature Source Pulse Rate Pulse Rate [Right Finger] 89 90 Pulse Rhythm [Right Finger] Regular Respiratory Rate 19 Respiratory Effort / Characteristics Respiratory Depth Blood Pressure Blood Pressure [Right Arm] 82/56 L 114/69 125/69 Blood Pressure Mean Blood Pressure Mean [Right Arm] 64 84 87 Pulse Oximetry 97 Oxygen Delivery Method Sepsis Recent Fever Within 48 Hours Sepsis New/Unexplained Change in Mental Status Sepsis Action Taken by Nursing 05/08/23 18:15 05/08/23 19:15 Temperature Temperature Source Pulse Rate Pulse Rate [Right Finger] 91 H 95 H Pulse Rhythm [Right Finger] Respiratory Rate 16 16 Respiratory Effort / Characteristics Respiratory Depth Blood Pressure Blood Pressure [Right Arm] 129/85 108/65 Blood Pressure Mean Blood Pressure Mean [Right Arm] 99 79 Pulse Oximetry 96 96 Oxygen Delivery Method Sepsis Recent Fever Within 48 Hours Sepsis New/Unexplained Change in Mental Status Sepsis Action Taken by Nursing Laboratory Data 05/09/23 02:08 05/09/23 02:08 Lab Results 05/08/23 05/08/23 05/08/23 Range/Units 16:20 16:20 16:20 WBC 16.28 H (4.8-10.8) K/ul RBC 3.44 L (4.20-5.40) M/uL Hgb 10.3 L (12.0-16.0) g/dl Hct 31.9 L (37.0-47.0) % MCV 92.7 (80.0-100.0) fL MCH 29.9 (25.0-34.0) pg MCHC 32.3 (32.0-36.0) g/dL RDW Std Deviation 57.7 H (36.4-46.3) fL RDW Coeff of [place] 17.0 H (11.5-14.5) % Plt Count 259 (130-400) K/uL MPV 11.6 (9.4-12.4) fL Immature Gran % (Auto) 0.4 % Neut % (Auto) 92.8 % Lymph % (Auto) 1.4 % [place] % (Auto) 5.2 % Eos % (Auto) 0.0 % Baso % (Auto) 0.2 % Neut # (Auto) 15.11 H (1.40-6.50) K/uL Lymph # (Auto) 0.23 L (1.2-3.4) K/uL [place] # (Auto) 0.84 H (0.11-0.59) K/uL Eos # (Auto) 0.00 (0-0.50) K/uL Baso # (Auto) 0.03 (0-0.2) K/uL Immature Gran # (Auto) 0.07 (0.01-0.20) K/uL Toxic Vacuolation 1+ Ovalocytes 1+ Sodium 136 (136-145) mmol/L Potassium 4.1 (3.5-5.1) mmol/L Chloride 103 (98-107) mmol/L Carbon Dioxide 26 (21-32) mmol/L Anion Gap 7 (3-11) BUN 21 (6-23) mg/dl Creatinine 0.91 (0.6-1.2) mg/dl Est Cr Clr Drug Dosing 49.7 ml/min Est GFR ( Amer) 74.1 ml/min Est GFR (Non-Af Amer) 63.9 ml/min BUN/Creatinine Ratio 23.1 H (10-20) Glucose 132 H (70-99(Fasting)) mg/dl Lactate (0.4-2.0) mmol/L Calcium 8.7 (8.6-10.3) mg/dl Magnesium 1.7 (1.7-2.4) mg/dl Total Bilirubin 0.6 (0.2-1.0) mg/dl Direct Bilirubin TNP AST 30 (13-39) U/L ALT 21 (7-52) U/L Alkaline Phosphatase 54 (34-104) U/L Troponin I High Sens 61.2 H* (0-14) pg/ml Total Protein 6.1 (6.0-8.3) gm/dl Albumin 3.6 (3.4-5.0) gm/dl Procalcitonin 3.07 H (0-0.5) ng/ml Urine Color Urine Appearance (Clear) Urine pH (4.5-7.5) Ur Specific [place] (1.000-1.030) Urine Protein (Negative) Urine Glucose (UA) (Negative) Urine Ketones (Negative) Urine Blood (Negative) Urine Nitrite (Negative) Urine Bilirubin (Negative) Urine Urobilinogen (Negative) Ur Leukocyte Esterase (Negative) SARS-CoV-2 (PCR) (Negative) 05/08/23 05/08/23 05/08/23 Range/Units 16:23 16:33 17:44 WBC (4.8-10.8) K/ul RBC (4.20-5.40) M/uL Hgb (12.0-16.0) g/dl Hct (37.0-47.0) % MCV (80.0-100.0) fL MCH (25.0-34.0) pg MCHC (32.0-36.0) g/dL RDW Std Deviation (36.4-46.3) fL RDW Coeff of [place]anie (11.5-14.5) % Plt Count (130-400) K/uL MPV (9.4-12.4) fL Immature Gran % (Auto) % Neut % (Auto) % Lymph % (Auto) % [place] % (Auto) % Eos % (Auto) % Baso % (Auto) % Neut # (Auto) (1.40-6.50) K/uL Lymph # (Auto) (1.2-3.4) K/uL [place] # (Auto) (0.11-0.59) K/uL Eos # (Auto) (0-0.50) K/uL Baso # (Auto) (0-0.2) K/uL Immature Gran # (Auto) (0.01-0.20) K/uL Toxic Vacuolation Ovalocytes Sodium (136-145) mmol/L Potassium (3.5-5.1) mmol/L Chloride (98-107) mmol/L Carbon Dioxide (21-32) mmol/L Anion Gap (3-11) BUN (6-23) mg/dl Creatinine (0.6-1.2) mg/dl Est Cr Clr Drug Dosing ml/min Est GFR ( Amer) ml/min Est GFR (Non-Af Amer) ml/min BUN/Creatinine Ratio (10-20) Glucose (70-99(Fasting)) mg/dl Lactate 2.2 H* (0.4-2.0) mmol/L Calcium (8.6-10.3) mg/dl Magnesium (1.7-2.4) mg/dl Total Bilirubin (0.2-1.0) mg/dl Direct Bilirubin AST (13-39) U/L ALT (7-52) U/L Alkaline Phosphatase (34-104) U/L Troponin I High Sens (0-14) pg/ml Total Protein (6.0-8.3) gm/dl Albumin (3.4-5.0) gm/dl Procalcitonin (0-0.5) ng/ml Urine Color Dark Yellow Urine Appearance Clear (Clear) Urine pH 5.5 (4.5-7.5) Ur Specific [place] 1.020 (1.000-1.030) Urine Protein Negative (Negative) Urine Glucose (UA) Negative (Negative) Urine Ketones Trace H (Negative) Urine Blood Negative (Negative) Urine Nitrite Negative (Negative) Urine Bilirubin Negative (Negative) Urine Urobilinogen Negative (Negative) Ur Leukocyte Esterase Negative (Negative) SARS-CoV-2 (PCR) NEGATIVE (Negative) 05/08/23 Range/Units 17:45 WBC (4.8-10.8) K/ul RBC (4.20-5.40) M/uL Hgb (12.0-16.0) g/dl Hct (37.0-47.0) % MCV (80.0-100.0) fL MCH (25.0-34.0) pg MCHC (32.0-36.0) g/dL RDW Std Deviation (36.4-46.3) fL RDW Coeff of T[place]anie (11.5-14.5) % Plt Count (130-400) K/uL MPV (9.4-12.4) fL Immature Gran % (Auto) % Neut % (Auto) % Lymph % (Auto) % [place] % (Auto) % Eos % (Auto) % Baso % (Auto) % Neut # (Auto) (1.40-6.50) K/uL Lymph # (Auto) (1.2-3.4) K/uL [place] # (Auto) (0.11-0.59) K/uL Eos # (Auto) (0-0.50) K/uL Baso # (Auto) (0-0.2) K/uL Immature Gran # (Auto) (0.01-0.20) K/uL Toxic Vacuolation Ovalocytes Sodium (136-145) mmol/L Potassium (3.5-5.1) mmol/L Chloride (98-107) mmol/L Carbon Dioxide (21-32) mmol/L Anion Gap (3-11) BUN (6-23) mg/dl Creatinine (0.6-1.2) mg/dl Est Cr Clr Drug Dosing ml/min Est GFR ( Amer) ml/min Est GFR (Non-Af Amer) ml/min BUN/Creatinine Ratio (10-20) Glucose (70-99(Fasting)) mg/dl Lactate (0.4-2.0) mmol/L Calcium (8.6-10.3) mg/dl Magnesium (1.7-2.4) mg/dl Total Bilirubin (0.2-1.0) mg/dl Direct Bilirubin 0.1 AST (13-39) U/L ALT (7-52) U/L Alkaline Phosphatase (34-104) U/L Troponin I High Sens (0-14) pg/ml Total Protein (6.0-8.3) gm/dl Albumin (3.4-5.0) gm/dl Procalcitonin (0-0.5) ng/ml Urine Color Urine Appearance (Clear) Urine pH (4.5-7.5) Ur Specific [place] (1.000-1.030) Urine Protein (Negative) Urine Glucose (UA) (Negative) Urine Ketones (Negative) Urine Blood (Negative) Urine Nitrite (Negative) Urine Bilirubin (Negative) Urine Urobilinogen (Negative) Ur Leukocyte Esterase (Negative) SARS-CoV-2 (PCR) (Negative) Administered Medications Acetaminophen (Acetaminophen 325 Mg Tab) 650 mg PO Q4H PRN PRN Reason: Pain or Fever Stop: 06/07/23 22:12 Last Admin: 05/09/23 05:02 Dose: 650 mg Documented By: ARR Apixaban (Apixaban 5 Mg Tablet) 5 mg PO BID [facility] Stop: 06/07/23 22:12 Last Admin: 05/09/23 07:55 Dose: 5 mg Documented By: Admin: 05/08/23 23:16 Dose: 5 mg Documented By: MARLON Aspirin (Aspirin 81 Mg Ectab) 81 mg PO DAILY [facility] Stop: 06/08/23 08:59 Last Admin: 05/09/23 07:52 Dose: 81 mg Documented By: DAPHNE Atorvastatin Calcium (At[facility]vastatin 20 Mg Tab) [facility] Stop: 06/08/23 08:59 Last Admin: 05/09/23 07:52 Dose: 20 mg Documented By: DAPHNE Escitalopram Oxalate (Escitalopram Oxalate 20 Mg Tab) 20 mg PO QAM [facility] Stop: 06/08/23 08:59 Last Admin: 05/09/23 07:53 Dose: 20 mg Documented By: DAPHNE Cefepime HCl 2,000 mg/ Syringe 20 mls @ 5 mls/min IV Q12H [facility]; Protocol Stop: 05/16/23 05:59 Last Admin: 05/09/23 05:02 Dose: 5 mls/min Documented By: ARR Vancomycin HCl 750 mg/ Sodium (Chloride) 265 mls @ 200 mls/hr IV Q12H [facility]; Protocol Stop: 05/16/23 07:59 Last Admin: 05/09/23 07:51 Dose: 200 mls/hr Documented By: DAPHNE Metoprolol Tartrate (Metoprolol Tartrate 25 Mg Tab) 12.5 mg PO BID [facility] Stop: 06/07/23 22:12 Last Admin: 05/09/23 07:56 Dose: 12.5 mg Documented By: Admin: 05/08/23 23:17 Dose: 12.5 mg Documented By: ARR Miscellaneous (*Aubagio*Order Awaiting Action) 1 each N/A QS [facility] Stop: 06/08/23 00:00 Last Admin: 05/09/23 13:56 Dose: 1 each Documented By: Admin: 05/08/23 23:19 Dose: Not Given Documented By: ARR Multivitamins (Multivitamin Tab) 1 tab PO DAILY [facility] Stop: 06/08/23 08:59 Last Admin: 05/09/23 07:54 Dose: 1 tab Documented By: DAPHNE Oxybutynin Chloride (Oxybutynin Chloride Xl 5 Mg Tabcr) [facility] Stop: 06/08/23 08:59 Last Admin: 05/09/23 07:54 Dose: 15 mg Documented By: DAPHNE Pantoprazole Sodium (Pantoprazole 40 Mg Tab) 40 [facility]; Protocol Stop: 06/08/23 08:59 Last Admin: 05/09/23 07:54 Dose: 40 mg Documented By: DAPHNE Prednisone (Prednisone 10 Mg Tablet) 10 mg PO QAM [facility] Stop: 06/08/23 08:59 Last Admin: 05/09/23 07:55 Dose: 10 mg Documented By: DAPHNE Tizanidine HCl (Tizanidine Hcl 4 Mg Tablet) 4 mg PO QID [facility] Stop: 06/07/23 22:59 Last Admin: 05/09/23 13:56 Dose: 4 mg Documented By: Admin: 05/09/23 07:55 Dose: 4 mg Documented By: Admin: 05/08/23 23:16 Dose: 4 mg Documented By: MARLON Vitamin D (Cholecalciferol 1,000 Units 25 Mcg Tab) 1,000 units PO QAM MICHELLE Stop: 06/08/23 08:59 Last Admin: 05/09/23 07:53 Dose: 1,000 units Documented By: MTP Discontinued Medications Sodium Chloride (Nss 1000ml) 1,000 mls @ 999 mls/hr IV .Q1H1M ONE Stop: 05/08/23 18:21 Last Infusion: 05/08/23 18:21 Dose: 0 mls/hr Documented By: Admin: 05/08/23 17:28 Dose: 999 mls/hr Documented By: ASW Cefepime HCl (Maxipime) 2,000 mg in 20 mls @ 5 mls/min IV NOW STA; Protocol Stop: 05/08/23 18:20 Last Admin: 05/08/23 18:52 Dose: 5 mls/min Documented By: ASW Sodium Chloride (Nss) 500 mls @ 999 mls/hr IV .Q31M ONE Stop: 05/08/23 18:48 Last Infusion: 05/08/23 19:19 Dose: 0 mls/hr Documented By: Admin: 05/08/23 18:52 Dose: 999 mls/hr Documented By: ASW Sodium Chloride (Nss) 500 mls @ 125 mls/hr IV .Q4H MICHELLE Stop: 06/07/23 18:29 Last Infusion: 05/08/23 22:15 Dose: 0 mls/hr Documented By: Admin: 05/08/23 19:39 Dose: 125 mls/hr Documented By: ASW Sodium Chloride (Nss 1000ml) 250 mls @ 999 mls/hr IV .Q16M ONE Stop: 05/08/23 19:12 Last Infusion: 05/08/23 19:39 Dose: 0 mls/hr Documented By: Admin: 05/08/23 19:16 Dose: 999 mls/hr Documented By: ASW Vancomycin HCl 1,250 mg/ (Sodium Chloride) 275 mls @ 200 mls/hr IV NOW STA Stop: 05/09/23 00:04 Last Infusion: 05/09/23 00:35 Dose: 0 mls/hr Documented By: Admin: 05/08/23 23:18 Dose: 200 mls/hr Documented By: ARR Discharge Plan Visit Data Chief Complaint: Weakness Stated Complaint: GENERALIZED WEAKNESS ED Provider: Candis Ann Discharge Problem: Sepsis, Cellulitis of left lower leg, Chronic ulcer of right foot Patient Disposition: Admitted As Inpatient Discharge Instructions Interventions: ED Discharge Assessment Last Done: 05/08/23 20:57 Sepsis Qualifiers: Sepsis type: sepsis due to unspecified organism Sepsis acute organ dysfunction status: with acute organ dysfunction Severe sepsis acute organ dysfunction type: unspecified Severe sepsis shock status: with septic shock Qualified Code(s): A41.9 - Sepsis, unspecified organism Chronic ulcer of right foot Qualifiers: Non-pressure ulcer stage: unspecified non-pressure ulcer stage Qualified Code(s): L97.519 - Non-pressure chronic ulcer of other part of right foot with unspecified severity
[2023-05-08 17:37] LABS: Hematocrit (blood only) 31.9 % (37.0-47.0); Hemoglobin 10.3 g/dl (12.0-16.0); Mean Corpuscular Hemoglobin 29.9 pg (25.0-34.0); Mean Corpuscular Hgb Conc 32.3 g/dL (32.0-36.0); Mean Corpuscular Volume 92.7 fL (80.0-100.0); Mean Platelet Volume 11.6 fL (9.4-12.4); Platelet Count 259 K/uL (130-400); RDW Standard Deviation 57.7 fL (36.4-46.3); Red Blood Count 3.44 M/uL (4.20-5.40); White Blood Count 16.28 K/ul (4.8-10.8)
[2023-05-08 17:58] LABS: Basophils # (auto) 0.03 K/uL (0-0.2); Basophils % (auto) 0.2 %; Immature Granulocytes # (auto) 0.07 K/uL (0.01-0.20); Immature Granulocytes % (auto) 0.4 %; Lymphocytes # (auto) 0.23 K/uL (1.2-3.4); Lymphocytes % (auto) 1.4 %; Monocytes # (auto) 0.84 K/uL (0.11-0.59); Monocytes % (auto) 5.2 %; Neutrophils # (auto) 15.11 K/uL (1.40-6.50); Neutrophils % (auto) 92.8 %; Ovalocytes 1+; Toxic Vacuolation 1+
[2023-05-08] MEDS ORDERED: CEFEPIME 2,000 MG/20 ML VIAL IV STA (18:17)
[2023-05-08] MEDS ORDERED: SODIUM CHLORIDE 0.9% 500 ML IV ONE (18:18)
--- NOTE | 2023-05-08 18:18 | XRay Report ---
XR chest 1V portable CLINICAL HISTORY: Sepsis TECHNIQUE: Single frontal radiograph of the chest was obtained. Comparison: Comparison is made to chest radiograph 03/05/2023 FINDINGS: Right shoulder reverse arthroplasty is seen. The cardiomediastinal silhouette is normal. The lungs ar e clear. No evidence of pleural effusion or pneumothorax. IMPRESSION: No acute abnormalities and in particular no radiographic evidence of pneumonia. ACT 112: Negative or not required by law. Electronically signed by: Morales Hanna M.D. 05/08/2023 6:16 PM
[2023-05-08 18:19] LABS: Alanine Aminotransferase 21 U/L (7-52); Albumin Level 3.6 gm/dl (3.4-5.0); Alkaline Phosphatase 54 U/L (34-104); Anion Gap 7 (3-11); Aspartate Aminotransferase 30 U/L (13-39); BUN Creatinine Ratio 23.1 (10-20); Bilirubin,Total 0.6 mg/dl (0.2-1.0); Blood Urea Nitrogen 21 mg/dl (6-23); Calcium 8.7 mg/dl (8.6-10.3); Carbon Dioxide 26 mmol/L (21-32); Chloride 103 mmol/L (98-107); Creatinine Clr Calc Pharmacy 49.7 ml/min; Est GFR (African American) 74.1 ml/min; Est GFR (Non-African American) 63.9 ml/min; Glucose 132 mg/dl (70-99(Fasting)); Magnesium 1.7 mg/dl (1.7-2.4); Potassium 4.1 mmol/L (3.5-5.1); Sodium 136 mmol/L (136-145); Total Protein 6.1 gm/dl (6.0-8.3)
[2023-05-08 18:21] LABS: Troponin I High Sensitivity 61.2 pg/ml (0-14)
[2023-05-08] MEDS ORDERED: SODIUM CHLORIDE 0.9% 500 ML IV SCH (18:30)
--- NOTE | 2023-05-08 18:41 | XRay Report ---
XR foot RT 2V CLINICAL HISTORY: wound on heal - eval for osteo TECHNIQUE: 2 views of the right foot were obtained. Comparison: Comparison is made to right ankle radiographs 04/19/2023 FINDINGS: No fractures are present. The joint spaces are well preserved. Soft tissue swelling is seen about the foot. Redemonstration of a distal fibular ulcer. IMPRESSION: No radiographic evidence of osteomyelitis. If clinical concern remains, MRI is a more sensitive modal ity. ACT 112: Negative or not required by law. Electronically signed by: Morales Hanna M.D. 05/08/2023 6:40 PM
[2023-05-08] MEDS ORDERED: SODIUM CHLORIDE 0.9% 1000ML 250 ML IV ONE (18:57)
--- NOTE | 2023-05-08 19:14 | History & Physical Report ---
Date of Service May 08, 2023 Assessment & Plan (1) Sepsis: (2) Hypotension: (3) Ulcer of right ankle: Plan: Patient is a 72-year-old female with PMH CAD, paroxysmal atrial fibrillation, history of PE/DVT, s/p IVC filter, anticoagulated on Eliquis, chronic anemia, HTN, HLD, chronic pain, history of left breast cancer s/p surgery, radiation presented to ER with c/o chills. Chronic Right ulcer wound In ER T: 37.6 C, P: 88, RR: 16, initial BP 101/60 dropped to 82/56. Was given 1500 mL NSS with repeat BP of 129/85 WBC: 16, lactate: 2.2, procalcitonin 3. UA unremarkable. Negative SARS-CoV-2 PCR CXR: No acute abnormalities and in particular no radiographic evidence of pneumonia. Right foot x-ray: No radiographic evidence of osteomyelitis. Sepsis likely secondary to infected right ankle ulcer. DDx osteomyelitis, bacteremia. No signs or symptoms pneumonia or UTI In ER received cefepime Blood cultures pending Patient appears resuscitated. Has had improvement with normalization of BPs and now SBP 160's. Hold on additional fluids currently and monitor Trend lactic acid Cefepime, vancomycin Consider MRI to rule out osteomyelitis Podiatry consult Wound nurse consult CBC, BMP in a.m. (4) Elevated troponin: Plan: Initial high-sensitivity troponin: 61. EKG sinus rhythm rate 90, Q waves septal and anterior leads. EKG from 03/05/2023 with Q waves septal leads noted Patient denies chest pain, shortness of breath History of chronically elevated high-sensitivity troponins in past. Most recent was 38 on 03/05/23 May be demand ischemia secondary to sepsis Echo 10/17/2022: EF: 65-70%, no wall motion abnormality, grade 1 diastolic dysfunction Trend troponin If troponins uptrending consider echo, cardiology consult Continue aspirin, atorvastatin (5) History of pulmonary embolism: Plan: History of PE/DVT. History of IVC filter. Chronically anticoagulated on Eliquis Continue Eliquis (6) Paroxysmal atrial fibrillation: Plan: Anticoagulated on Eliquis Current sinus rhythm Continue Eliquis Continue metoprolol tartrate with holding parameters (7) Multiple sclerosis: Plan: On chronic prednisone Continue Aubagio, prednisone (8) CAD (coronary artery disease): Plan: History nonobstructive CAD Continue aspirin, statin (9) Chronic anemia: Plan: Hgb: 10.3. Baseline Hgb in 10's Monitor H&H (10) HX: breast cancer: Plan: History of left breast cancer s/p surgery, radiation DVT Prophylaxis On Eliquis Full Code as per discussion with pt Follows with Simi BROWN for routine care Pt was seen and care coordinated with Dr Wall. See addendum I spent a total of 78 minutes reviewing notes, outpatient records, labs, medication, coordinating, documenting and providing care for this patient excluding time spent in the performance of separately billed services. History of Present Illness Chief Complaint: chills Primary Care Provider: KEVIN Lema Patient is a 72-year-old female with PMH CAD, paroxysmal atrial fibrillation, history of PE/DVT, s/p IVC filter, anticoagulated on Eliquis, chronic anemia, HTN, HLD, chronic pain, history of left breast cancer s/p surgery, radiation presented to ER with c/o chills. Patient states this morning woke up and was feeling very chilled. She did not take her temperature. Patient also reports feeling general malaise. She states she has been following with wound clinic for several weeks for right lateral ankle ulcer. Prior wound cultures negative for bacteria. Patient reports chronic surrounding redness and chronic brown/yellow discharge. Today she noted foul odor coming from wound and area feels more painful. Denies any noted increased erythema or increased discharge. Chronic BLE edema, denies any worsening. Also reports wound to left lower anterior leg. She states left lower leg with chronic erythema, denies diaphoresis, N/V/D/C, HOLT, dizziness, syncope, vision changes, neck pain, CP, SOB, orthopnea, palpitations, cough, sore throat, otalgia, rhinorrhea, abdominal pain, paresthesias, extremity weakness, increased extremity edema, rashes, dysuria, urinary frequency, urinary retention, hematuria. Allergies Allergy/AdvReac Type Severity Reaction Status Date / Time No Known Allergies Allergy Verified 05/08/23 19:26 Home Medications Medication Instructions Recorded Confirmed Type cholecalciferol (vitamin D3) 25 1,000 units PO QAM 09/18/18 05/08/23 History mcg (1,000 unit) capsule escitalopram oxalate 20 mg tablet 20 mg PO QAM 09/18/18 05/08/23 History (Lexapro) oxybutynin chloride 15 mg 15 mg PO QAM 09/18/18 05/08/23 History tablet,extended release 24 hr prednisone 10 mg tablet 10 mg PO QAM 09/18/18 05/08/23 History omeprazole 40 mg capsule,delayed 40 mg PO QAM 07/06/21 05/08/23 History release apixaban 5 mg tablet (Eliquis) 5 mg PO BID #60 tabs 07/09/21 05/08/23 Rx teriflunomide 14 mg tablet 14 mg PO QPM 05/13/22 05/08/23 History (Aubagio) tizanidine 4 mg tablet (Zanaflex) 4 mg PO QID 05/13/22 05/08/23 History atorvastatin 20 mg tablet (Lipitor) 20 mg PO QAM 08/10/22 05/08/23 History doxycycline hyclate 50 mg capsule 50 mg PO Q OTHER DAY Rosacea 08/10/22 05/08/23 History azelaic acid 15 % topical gel 1 applic topical DAILY 10/21/22 05/08/23 History acetaminophen 500 mg tablet 500 mg PO Q6H PRN Pain 03/05/23 05/08/23 History aspirin 81 mg tablet,delayed 81 mg PO DAILY 03/05/23 05/08/23 History release melatonin 3 mg tablet 3 mg PO HS PRN Insomnia 03/05/23 05/08/23 History multivitamin 1 tab PO DAILY 03/05/23 05/08/23 History metoprolol tartrate 25 mg tablet 12.5 mg PO BID 05/08/23 05/08/23 History Past Med/Surg History Medical History (Updated 05/08/23 @ 20:05 by Emily Collazo PA-C) Anemia CAD (coronary artery disease) Non-obstructive per 06/2021 cardiac cath GERD (gastroesophageal reflux disease) controlled, stable per pt History of blood transfusion History of DVT (deep vein thrombosis) ~6 yrs ago History of GI bleed Upper GIB (2019) felt 2/2 NSAID use History of non-ST elevation myocardial infarction (NSTEMI) 06/2021 (had heart cath, no stents) History of pulmonary embolism ~ 6 yrs ago, IVC filter still in place History of recent hospitalization 09/2022 [facility] - sepsis History of supraventricular tachycardia Hx of gastric ulcer 02/2021 HX: breast cancer Left breast cancer with surgery and chemo/radiation-left arm restriction Hypertension controlled, stable per pt Limb alert care status left arm Multiple sclerosis Follows with Dr. Walker/[facility] Stable Neurogenic bladder SELF CATH 2-3 X'S PER DAY *RECENT HOSPITALIZATION FOR UTI Osteoarthritis of right shoulder Osteoporosis Raynaud disease Surgical History H/O left mastectomy with lymph node removal>LEFT ARM RESTRICTION History of appendectomy History of cardiac cath Cardiac cath (07/06/21; [facility]) > Right dominant coronary system. No evidence of aortic stenosis. Normal left ventricular filling pressures. Nonobstructive disease involving the ostial LAD. No evidence of acute coronary syndrome. Approximately 50% ostial stenosis of the LAD. There was some very mild disease at the ostium of the left circumflex. Recommendations: Medical management. History of colonoscopy History of esophagogastroduodenoscopy (EGD) History of open reduction and internal fixation (ORIF) procedure "left hip" History of tooth extraction Presence of intrathecal pump baclofen pump in place--status post revision/replacement 08/10/2022 S/P IVC filter S/P partial hysterectomy S/p reverse total shoulder arthroplasty right: 05/25/22 LMA#4. No postop issues per anesthesia progress note. 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 Beliefs That Will Affect Care: None marital status: / Current Living Situation: Alone Current Living Situation Comment: home alone- uses walker but needs a new one current occupational status: retired How many Children do You have: 3 Feels Safe at Home: Yes Childhood Exposure to Second-Hand Smoke: Yes Diet: regular caffeine: Yes Assistive Devices: Walker and Wheelchair Review of Systems Review of Systems: All systems reviewed & are unremarkable except as noted in HPI & below Physical Exam Physical Exam: General: no distress, WDWN Head: normocephalic, atraumatic Eyes: conjunctiva non-injected, anicteric ENT: normal inspection external ears, nose, mucous membranes moist Neck: supple, trachea midline Lungs: clear, no respiratory distress, no wheezing/rhonchi/rales CV: RRR, + murmur Abd: normal BS, soft, non-tender Ext: no cyanosis, no calf tenderness; BLE nonpitting edema. RLE: +ulcer right lateral ankle with foul odor. +diffuse erythema lower leg and foot. Mild warmth, +tenderness to palpation surrounding ulcer. LLE: +abrasion anterior lower leg. +diffuse erythema, leg is not warm and is non-tender to palpation. Neuro: A&O x 3, no focal deficits noted, normal affect, very talkative and pleasant Skin: warm, dry; extremities as above Results & Data Results & Data Vital Signs (Past 12 Hours) Vital Signs Temp Pulse Pulse Resp BP BP Pulse Ox 05/08/23 18:15 91 H 16 129/85 96 05/08/23 17:51 90 125/69 05/08/23 18:06 114/69 05/08/23 17:54 89 19 82/56 L 97 05/08/23 17:22 84 16 95/55 L 97 05/08/23 16:31 87 05/08/23 16:27 37.6 C H 88 16 101/60 96 O2 Del Method 05/08/23 18:15 05/08/23 17:51 05/08/23 18:06 05/08/23 17:54 05/08/23 17:22 Room Air 05/08/23 16:31 05/08/23 16:27 Room Air Laboratory Results Short CBC 05/08/23 Range/Units 16:20 WBC 16.28 H (4.8-10.8) K/ul Hgb 10.3 L (12.0-16.0) g/dl Hct 31.9 L (37.0-47.0) % Plt Count 259 (130-400) K/uL BMP 05/08/23 16:20 Sodium 136 Potassium 4.1 Chloride 103 Carbon Dioxide 26 BUN 21 Creatinine 0.91 Glucose 132 H Calcium 8.7 Liver Function 05/08/23 05/08/23 Range/Units 16:20 17:45 Total Bilirubin 0.6 (0.2-1.0) mg/dl Direct Bilirubin TNP 0.1 AST 30 (13-39) U/L ALT 21 (7-52) U/L Alkaline Phosphatase 54 (34-104) U/L Albumin 3.6 (3.4-5.0) gm/dl Urine 05/08/23 Range/Units 16:23 Urine Color Dark Yellow Urine Appearance Clear (Clear) Urine pH 5.5 (4.5-7.5) Ur Specific [place] 1.020 (1.000-1.030) Urine Protein Negative (Negative) Urine Glucose (UA) Negative (Negative) Diagnostic Findings Chest X-Ray 05/08/23 17:21 XR chest 1V portable CLINICAL HISTORY: Sepsis TECHNIQUE: Single frontal radiograph of the chest was obtained. Comparison: Comparison is made to chest radiograph 03/05/2023 FINDINGS: Right shoulder reverse arthroplasty is seen. The cardiomediastinal silhouette is normal. The lungs are clear. No evidence of pleural effusion or pneumothorax. IMPRESSION: No acute abnormalities and in particular no radiographic evidence of pneumonia. ACT 112: Negative or not required by law. Electronically signed by: Morales Hanna M.D. 05/08/2023 6:16 PM Foot X-Ray 05/08/23 18:19 XR foot RT 2V CLINICAL HISTORY: wound on heal - eval for osteo TECHNIQUE: 2 views of the right foot were obtained. Comparison: Comparison is made to right ankle radiographs 04/19/2023 FINDINGS: No fractures are present. The joint spaces are well preserved. Soft tissue swelling is seen about the foot. Redemonstration of a distal fibular ulcer. IMPRESSION: No radiographic evidence of osteomyelitis. If clinical concern remains, MRI is a more sensitive modality. ACT 112: Negative or not required by law. Electronically signed by: Morales Hanna M.D. 05/08/2023 6:40 PM Supervising Physician Co-Signing Physician Notes I have seen and examined the patient and have discussed the case with the provider above. I agree with the assessment and plan as stated with the following exceptions. 72 yo F presents with sepsis possibly 2/2 cellulitis. She has been fatigued for several days per she and her daughter who is present with her this evening. The patient has bilateral wounds on her lower legs, and reports intermittently traumatizing them by banging them against something. She sees the wound care center regularly for these wounds. She presents today with generalized weakness and fever with tachycardia. She has an elevated WBC count with a left shift and an elevated procalcitonin. Workup also reveals no evidence of UTI, especially concerning given her recent hospitalization with MDR bacteruria and treatment with intravenous antibiotics. She has a clear chest xray and no respiratory symptoms. She received IVF for hypotension and an elevated lactate and appears resuscitated at this time. She is now mildly hypertensive with a BP 156/111. She reports some pain in her right ankle. On exam her LLE appears warm and bright red up to the mid resendez area, consistent with cellulitis. There is a closed and healed wound on her LLE and then there is a Stage II ulceration on the right lateral ankle with swelling of the foot and less severe redness that is present. The RLE doesn't appear as consistent with cellulitis compared with the LLE. Cardiopulmonary exam is normal with regular rate and rhythm heard and S1/2 without murmur present. Skin is warm and dry and she is mentating clearly. 1. sepsis 2/2 cellulitis 2. Stage II ulceration of right ankle 3. Multiple Sclerosis Agree with plan for broad spectrum antibiotics including vancomycin and cefepime pending culture results and clinical improvement. Will hold off on additional IVF now as she appears resuscitated and lactate, heart rate are improved. Regarding source control, this is likely just a secondary skin infection, however, agree with evaluation by podiatry and wound care nurse. Cont pain control PRN. Troponin elevation likely related to demand ischemia in sepsis with no symptoms of ACS and nonischemic EKG. DO ken (2) Hypotension Hypotension type: unspecified hypotension type Qualified Code(s): I95.9 - Hypotension, unspecified
--- NOTE | 2023-05-08 20:37 | Communication Note ---
Date of Service: May 08, 2023 HOSPITALIST ADDENDUM: 72 yo F presents with sepsis possibly 2/2 cellulitis. She has been fatigued for several days per she and her daughter who is present with her this evening. The patient has bilateral wounds on her lower legs, and reports intermittently traumatizing them by banging them against something. She sees the wound care center regularly for these wounds. She presents today with generalized weakness and fever with tachycardia. She has an elevated WBC count with a left shift and an elevated procalcitonin. Workup also reveals no evidence of UTI, especially concerning given her recent hospitalization with MDR bacteruria and treatment with intravenous antibiotics. She has a clear chest xray and no respiratory symptoms. She received IVF for hypotension and an elevated lactate and appears resuscitated at this time. She is now mildly hypertensive with a BP 156/111. She reports some pain in her right ankle. On exam her LLE appears warm and bright red up to the mid resendez area, consistent with cellulitis. There is a closed and healed wound on her LLE and then there is a Stage II ulceration on the right lateral ankle with swelling of the foot and less severe redness that is present. The RLE doesn't appear as consistent with cellulitis compared with the LLE. Cardiopulmonary exam is normal with regular rate and rhythm heard and S1/2 without murmur present. Skin is warm and dry and she is mentating clearly. 1. sepsis 2/2 cellulitis 2. Stage II ulceration of right ankle 3. Multiple Sclerosis Agree with plan for broad spectrum antibiotics including vancomycin and cefepime pending culture results and clinical improvement. Will hold off on additional IVF now as she appears resuscitated and lactate, heart rate are improved. Regarding source control, this is likely just a secondary skin infection, however, agree with evaluation by podiatry and wound care nurse. Cont pain control PRN. Troponin elevation likely related to demand ischemia in sepsis with no symptoms of ACS and nonischemic EKG. DO ken
[2023-05-08] MEDS ORDERED: ONDANSETRON INJ 2 MG/ML 2 ML VIAL IV PRN (22:13)
[2023-05-08] MEDS ORDERED: POLYETHYLENE (MIRALAX) 17 GM PACK PO PRN (22:13)
[2023-05-08] MEDS ORDERED: VANCOMYCIN CONSULT ACTIVE PRN (22:13)
[2023-05-08] MEDS ORDERED: VANCOMYCIN HCL 1,250 MG in SODIUM CHLORIDE 0.9% 250 ML IV STA (22:42)
--- NOTE | 2023-05-08 22:53 | Pharmacy Report ---
Pharmacy PK ABX Note - Date of Service May 08, 2023 - Assessment and Plan Assessment 72 year old F receiving Vancomycin and Cefepime for treatment of skin and soft tissue infection. * Day #1 of antimicrobial therapy. * H/o MS on chronic Prednisone and Aubagio. Presented to ER w/ chills. Chronic right foot ulcer wound. * Febrile at 38.8oC. Leukocytosis of 16.3k. Lactate 2.2, down to 1.6 following fluids. Procalcitonin elevated at 3.07. * XR with no evidence of osteo but primary team may order MRI to rule out. Blood cultures pending. Plan Vancomycin * Loading dose: 1250 mg IV x 1 * Maintenance dose: 750 mg IV every 12 hours * Regimen is predicted to achieve target AUC/STEPHEN of 400-600 mg/L.hr * Random level ordered for: 05/10/23 Pharmacy will continue to follow and will adjust dose/frequency as necessary. Thank you. Pharmacy has transitioned to AUC monitoring for vancomycin. AUC/STEPHEN is the preferred PK/PD target and is associated with decreased risk of nephrotoxicity compared to traditional trough targets.
[2023-05-08] MEDS: APIXABAN 5 MG TABLET PO SCH (23:16)
[2023-05-08] MEDS: tiZANidine HCL 4 MG TABLET PO SCH (23:16)
[2023-05-08] MEDS: METOPROLOL TARTRATE 25 MG TAB PO SCH (23:17)
[2023-05-09 02:24] LABS: Basophils # (auto) 0.02 K/uL (0-0.2); Basophils % (auto) 0.2 %; Hematocrit (blood only) 29.8 % (37.0-47.0); Hemoglobin 9.5 g/dl (12.0-16.0); Immature Granulocytes # (auto) 0.02 K/uL (0.01-0.20); Immature Granulocytes % (auto) 0.2 %; Lymphocytes # (auto) 0.72 K/uL (1.2-3.4); Lymphocytes % (auto) 7.5 %; Mean Corpuscular Hemoglobin 29.1 pg (25.0-34.0); Mean Corpuscular Hgb Conc 31.9 g/dL (32.0-36.0); Mean Corpuscular Volume 91.4 fL (80.0-100.0); Mean Platelet Volume 10.2 fL (9.4-12.4); Monocytes # (auto) 0.82 K/uL (0.11-0.59); Monocytes % (auto) 8.5 %; Neutrophils # (auto) 8.08 K/uL (1.40-6.50); Neutrophils % (auto) 83.6 %; Platelet Count 216 K/uL (130-400); RDW Coefficient of Variation 17.2 % (11.5-14.5); RDW Standard Deviation 57.8 fL (36.4-46.3); Red Blood Count 3.26 M/uL (4.20-5.40); White Blood Count 9.66 K/ul (4.8-10.8)
[2023-05-09 02:39] LABS: BUN Creatinine Ratio 22.7 (10-20); Creatinine Clr Calc Pharmacy 65.3 ml/min; Est GFR (African American) 93.6 ml/min; Est GFR (Non-African American) 80.8 ml/min; Potassium 3.6 mmol/L (3.5-5.1)
[2023-05-09] MEDS: ACETAMINOPHEN 325 MG TAB PO PRN (05:02)
[2023-05-09] MEDS: CEFEPIME 2,000 MG in SYRINGE 0 ML IV SCH ×2 (05:02→17:35)
[2023-05-09] MEDS: VANCOMYCIN HCL 750 MG in SODIUM CHLORIDE 0.9% 250 ML IV SCH ×2 (07:51→20:22)
[2023-05-09] MEDS: ATORVASTATIN 20 MG TAB PO SCH (07:52)
[2023-05-09] MEDS: ASPIRIN 81 MG ECTAB PO SCH (07:52)
[2023-05-09] MEDS: ESCITALOPRAM OXALATE 20 MG TAB PO SCH (07:53)
[2023-05-09] MEDS: CHOLECALCIFEROL 1,000 UNITS 25 MCG TAB PO SCH (07:53)
[2023-05-09] MEDS: PANTOprazole 40 MG TAB PO SCH (07:54)
[2023-05-09] MEDS: MULTIVITAMIN TAB PO SCH (07:54)
[2023-05-09] MEDS: OXYBUTYNIN CHLORIDE XL 5 MG TABCR PO SCH (07:54)
[2023-05-09] MEDS: tiZANidine HCL 4 MG TABLET PO SCH ×4 (07:55→21:59)
[2023-05-09] MEDS: predniSONE 10 MG TABLET PO SCH (07:55)
[2023-05-09] MEDS: APIXABAN 5 MG TABLET PO SCH ×2 (07:55→22:00)
[2023-05-09] MEDS: METOPROLOL TARTRATE 25 MG TAB PO SCH ×2 (07:56→22:00)
--- NOTE | 2023-05-09 13:32 | Hospitalist Progress Note ---
Date of Service May 09, 2023 Assessment & Plan (1) Sepsis: (2) Hypotension: (3) Ulcer of right ankle: Plan: 72-year-old female with PMH CAD, paroxysmal atrial fibrillation, history of PE/DVT, s/p IVC filter, anticoagulated on Eliquis, chronic anemia, HTN, HLD, c hronic pain, history of left breast cancer s/p surgery, radiation, neurogenic bladder that self catheterizes presented to ER with c/o chills. Chronic Right ulcer wound In ER T: 37.6 C, P: 88, RR: 16, initial BP 101/60 dropped to 82/56. Was given 1500 mL NSS with repeat BP of 129/85 WBC: 16, lactate: 2.2, procalcitonin 3. UA unremarkable. Negative SARS-CoV-2 PCR CXR: No acute abnormalities and in particular no radiographic evidence of pneumonia. Right foot x-ray: No radiographic evidence of osteomyelitis. Sepsis UA does not suggest UTI Based on my exam and suspicion for OM of right ankle, MRI right ankle was obtained which reported findings compatible with cellulitis and underlying osteomyelitis. Sepsis due to Right ankle cellulitis and osteomyelitis Blood cultures pending Awaiting Podiatry evaluation Continue IV vanc and cefepime Leukocytosis resolved today. Repeat lactate 1.6 Monitor BP. Patient's BP is quite labile from taking care of her in the past and trends (4) Elevated troponin: Plan: Initial high-sensitivity troponin: 61. EKG sinus rhythm rate 90, Q waves septal and anterior leads. EKG from 03/05/2023 with Q waves septal leads noted Patient denies chest pain, shortness of breath History of chronically elevated high-sensitivity troponins in past. Most recent was 38 on 03/05/23 May be demand ischemia secondary to sepsis Echo 10/17/2022: EF: 65-70%, no wall motion abnormality, grade 1 diastolic dysfunction Trop trended down Continue aspirin, atorvastatin (5) History of pulmonary embolism: Plan: History of PE/DVT. History of IVC filter. Chronically anticoagulated on Eliquis Continue Eliquis (6) Paroxysmal atrial fibrillation: Plan: Anticoagulated on Eliquis Current sinus rhythm Continue Eliquis Continue metoprolol tartrate with holding parameters (7) Multiple sclerosis: Plan: On chronic prednisone Continue Aubagio, prednisone (8) CAD (coronary artery disease): Plan: History nonobstructive CAD Continue aspirin, statin (9) Chronic anemia: Plan: Hgb: 9.5 today. Baseline Hgb in 10's Monitor H&H (10) HX: breast cancer: Plan: History of left breast cancer s/p surgery, radiation DVT Prophylaxis On Eliquis Full Code I spent a total of 50 minutes coordinating, documenting and providing care for this patient excluding time spent in performance of separately billed services Admission and Anticipated Discharge Date Admission Date: May 08, 2023 Subjective Patient seen and examined Reports feeling better today. Chills have resolved Had fevers overnight with last episode at 5AM Patient reports she had right ankle wound for some weeks now and follows with wound clinic. Reports some pain around the wound Also has left resendez wound. Denied any nausea, vomiting, abd pain, diarrhea, cough, chest pain, SOB Patient has neurogenic bladder and straight caths at home Physical Exam Constitutional: + well hydrated; no acute distress Eyes: PERRL, conjunctivae normal, anicteric sclerae ENMT: external ear and nose normal, oropharynx normal Respiratory: normal respiratory effort, lungs clear to auscultation Cardiovascular: Rate/Rhythm: regular rate and regular rhythm S1 S2 Gastrointestinal (Abdomen): normal bowel sounds, soft, nontender, no hepatosplenomegaly Musculoskeletal: Has a right lateral malleolar region ulcer with mild tenderness. Has a small wound on anterior left leg with erythema Neurologic: PERRL, EOMI, accommodation nl, no face palsy, no dysarthria Psychiatric: A+Ox3, euthymic affect Results & Data Results & Data Vital Signs (Past 12 Hours) Vital Signs Temp Pulse Pulse Resp BP Pulse Ox O2 Del Method 05/09/23 12:20 36.8 C 80 19 83/56 L 95 Room Air 05/09/23 07:30 97 H 05/09/23 07:54 37.4 C 93 H 20 110/71 96 Room Air 05/09/23 06:04 37.7 C H 05/09/23 05:00 38.1 C H 05/09/23 02:55 38 C H 91 H 18 101/64 93 Room Air Laboratory Results Abnormal lab results 05/08/23 05/08/23 05/08/23 Range/Units 16:20 16:20 16:20 WBC 16.28 H (4.8-10.8) K/ul RBC 3.44 L (4.20-5.40) M/uL Hgb 10.3 L (12.0-16.0) g/dl Hct 31.9 L (37.0-47.0) % MCHC (32.0-36.0) g/dL RDW Std Deviation 57.7 H (36.4-46.3) fL RDW Coeff of [place]iffanie 17.0 H (11.5-14.5) % Neut # (Auto) 15.11 H (1.40-6.50) K/uL Lymph # (Auto) 0.23 L (1.2-3.4) K/uL Drew # (Auto) 0.84 H (0.11-0.59) K/uL Chloride (98-107) mmol/L BUN/Creatinine Ratio 23.1 H (10-20) Glucose 132 H (70-99(Fasting)) mg/dl Lactate (0.4-2.0) mmol/L Calcium (8.6-10.3) mg/dl Troponin I High Sens 61.2 H* (0-14) pg/ml Procalcitonin 3.07 H (0-0.5) ng/ml Urine Ketones (Negative) 05/08/23 05/08/23 05/08/23 Range/Units 16:23 17:44 19:48 WBC (4.8-10.8) K/ul RBC (4.20-5.40) M/uL Hgb (12.0-16.0) g/dl Hct (37.0-47.0) % MCHC (32.0-36.0) g/dL RDW Std Deviation (36.4-46.3) fL RDW Coeff of [place] (11.5-14.5) % Neut # (Auto) (1.40-6.50) K/uL Lymph # (Auto) (1.2-3.4) K/uL Drew # (Auto) (0.11-0.59) K/uL Chloride (98-107) mmol/L BUN/Creatinine Ratio (10-20) Glucose (70-99(Fasting)) mg/dl Lactate 2.2 H* (0.4-2.0) mmol/L Calcium (8.6-10.3) mg/dl Troponin I High Sens 59.2 H* (0-14) pg/ml Procalcitonin (0-0.5) ng/ml Urine Ketones Trace H (Negative) 05/09/23 05/09/23 05/09/23 Range/Units 02:08 02:08 02:08 WBC (4.8-10.8) K/ul RBC 3.26 L (4.20-5.40) M/uL Hgb 9.5 L (12.0-16.0) g/dl Hct 29.8 L (37.0-47.0) % MCHC 31.9 L (32.0-36.0) g/dL RDW Std Deviation 57.8 H (36.4-46.3) fL RDW Coeff of [place] 17.2 H (11.5-14.5) % Neut # (Auto) 8.08 H (1.40-6.50) K/uL Lymph # (Auto) 0.72 L (1.2-3.4) K/uL Drew # (Auto) 0.82 H (0.11-0.59) K/uL Chloride 108 H (98-107) mmol/L BUN/Creatinine Ratio 22.7 H (10-20) Glucose 115 H (70-99(Fasting)) mg/dl Lactate (0.4-2.0) mmol/L Calcium 8.0 L (8.6-10.3) mg/dl Troponin I High Sens 54.4 H* (0-14) pg/ml Procalcitonin (0-0.5) ng/ml Urine Ketones (Negative) 05/09/23 Range/Units 08:05 WBC (4.8-10.8) K/ul RBC (4.20-5.40) M/uL Hgb (12.0-16.0) g/dl Hct (37.0-47.0) % MCHC (32.0-36.0) g/dL RDW Std Deviation (36.4-46.3) fL RDW Coeff of [place] (11.5-14.5) % Neut # (Auto) (1.40-6.50) K/uL Lymph # (Auto) (1.2-3.4) K/uL Drew # (Auto) (0.11-0.59) K/uL Chloride (98-107) mmol/L BUN/Creatinine Ratio (10-20) Glucose (70-99(Fasting)) mg/dl Lactate (0.4-2.0) mmol/L Calcium (8.6-10.3) mg/dl Troponin I High Sens 34.2 H D (0-14) pg/ml Procalcitonin (0-0.5) ng/ml Urine Ketones (Negative) (2) Hypotension Hypotension type: unspecified hypotension type Qualified Code(s): I95.9 - Hypotension, unspecified
--- NOTE | 2023-05-09 14:24 | XRay Report ---
XR KUB pre MRI CLINICAL HISTORY: To assess baclofen pump COMPARISON STUDY: CT of the abdomen and pelvis March 05, 2023. FINDINGS: The orientation of the left lower quadrant baclofen pump reservoir is normal. The catheter is partially imaged. Visualized portions of the catheter appear grossly intact. Left hip arthroplasty and IVC filter are incidentally noted. Bowel gas pattern is normal. Old right pubic ring fractures a re incidentally noted. IMPRESSION: No contraindication to MRI within the abdomen or pelvis. Normal orientation of the pump reservoir. ACT 112: Negative or not required by law. Electronically signed by: Scar Holden M.D. 05/09/2023 2:23 PM
[2023-05-09] MEDS ORDERED: GADOBUTROL 65ML VIAL IV ONE (15:39)
--- NOTE | 2023-05-09 16:20 | Magnetic Resonance Report ---
MR ankle RT wo/w con CLINICAL HISTORY: Rule out Osteomyelitis TECHNIQUE: Multisequence, multiplanar MR images of the right ankle were obtained with and without c ontrast. COMPARISON: Comparison is made to right ankle 04/19/2023 FINDINGS: There is bony edema of the lateral malleolus. Enhancement is seen at this level. There is soft tissue swelling with an ulcer at the lateral malleolus. IMPRESSION: Findings are compatible with cellulitis with underlying osteomyelitis. ACT 112: Negative or not required by law. Electronically signed by: Morales Hanna M.D. 05/09/2023 4:19 PM
--- NOTE | 2023-05-09 16:36 | Electrocardiogram Report ---
Test Reason : Blood Pressure : / mmHG Vent. Rate : 090 BPM Atrial Rate : 090 BPM P-R Int : 164 ms QRS Dur : 062 ms QT Int : 350 ms P-R-T Axes : 044 012 039 degrees QTc Int : 428 ms Normal sinus rhythm Poor R wave progression, consider anterior NM vs. lead placement vs. LVH Abnormal ECG When compared with ECG of 05-MAR-2023 21:53, Sinus rhythm has replaced Atrial fibrillation Questionable change in initial forces of Anterior leads ST no longer depressed in Anterior leads Confirmed by Edu Mckinnon ([id number]) on 05/09/2023 4:35:37 PM Referred By: REFERRED SELF Confirmed By:Jason Mckinnon
--- NOTE | 2023-05-09 17:03 | Magnetic Resonance Report ---
MR lower leg LT wo/w con HISTORY: 72 years-old Female Rule out Osteomyelitis chronic pain and swelling of the left lower leg COMPARISON: Left ankle MRI 12/15/2018 TECHNIQUE: Multiplanar multisequence MRI of the left lower leg pain both with and without the use of IV contrast. FINDINGS: The study is not tailored to assess the intrinsic structures of the knee or ankle. The study is motio n degraded. Moderate diffuse subcutaneous edema of the left lower leg with similar appearing changes within the imaged right lower leg. No focal fluid collection. Normal bone marrow signal without osseo us erosions or destructive bone lesions identified. No abnormal enhancement. No acute fracture or bon e infarct identified. IMPRESSION: 1. Moderate subcutaneous edema suggestive of cellulitis, lymphedema or venous stasis. 2. No fluid collection to suggest abscess. 3. Normal bone marrow signal. ACT 112: Negative or not required by law. The above report was generated using voice recognition software. It may contain grammatical, syntax o r spelling errors. Electronically signed by: Nasir Mccauley M.D. 05/09/2023 5:02 PM
--- NOTE | 2023-05-09 17:47 | Orthopedic Consultation ---
Date of Consultation May 09, 2023 Assessment & Plan (1) Ulcer of right ankle: Patient seen, evaluated, and treated. Reviewed Right lower extremity cellulitis and awaiting cultures. Reviewed MRI showing osteomyelitis of Right lateral fibula. Reviewed considerable non viable tissue on physical exam overlying right ankle wound Discussed with Patient debridement of Right lateral ankle wound in OR possible application of wound vac. Patient scheduled for procedure 05/12/23 at 10:30am. Thank you for allowing me to participate in the care of this Patient. (2) Chronic ulcer of right foot: (3) Cellulitis of left lower leg: History of Present Illness Attending Physician: Haylie Serrano MD History of Present Illness Patient is a 72-year-old female seen and examined at bedside for Right ankle wound. Patient has a past medical history significant for CAD, paroxysmal atrial fibrillation, history of PE/DVT, s/p IVC filter, anticoagulated on Eliquis, chronic anemia, HTN, HLD, chronic pain, history of left breast cancer s/p surgery, radiation presented to ER with c/o chills. Patient has history of lower extremity wounds and states she has been following with [facility] wound healing center for several weeks for right lateral ankle ulcer. Prior x-rays and wound cultures were negative. She states she noted foul odor coming from wound and area felt more painful. She presented to [facility] ED on 05/08/23 and was admitted for cellulitis with leukocytosis. MRI of right ankle taken today showed OM of right fibula. Allergies Allergy/AdvReac Type Severity Reaction Status Date / Time No Known Allergies Allergy Verified 05/08/23 19:26 Home Medications Medication Instructions Recorded Confirmed Type cholecalciferol (vitamin D3) 25 1,000 units PO QAM 09/18/18 05/08/23 History mcg (1,000 unit) capsule escitalopram oxalate 20 mg tablet 20 mg PO QAM 09/18/18 05/08/23 History (Lexapro) oxybutynin chloride 15 mg 15 mg PO QAM 09/18/18 05/08/23 History tablet,extended release 24 hr prednisone 10 mg tablet 10 mg PO QAM 09/18/18 05/08/23 History omeprazole 40 mg capsule,delayed 40 mg PO QAM 07/06/21 05/08/23 History release apixaban 5 mg tablet (Eliquis) 5 mg PO BID #60 tabs 07/09/21 05/08/23 Rx teriflunomide 14 mg tablet 14 mg PO QPM 05/13/22 05/08/23 History (Aubagio) tizanidine 4 mg tablet (Zanaflex) 4 mg PO QID 05/13/22 05/08/23 History atorvastatin 20 mg tablet (Lipitor) 20 mg PO QAM 08/10/22 05/08/23 History doxycycline hyclate 50 mg capsule 50 mg PO Q OTHER DAY Rosacea 08/10/22 05/08/23 History azelaic acid 15 % topical gel 1 applic topical DAILY 10/21/22 05/08/23 History acetaminophen 500 mg tablet 500 mg PO Q6H PRN Pain 03/05/23 05/08/23 History aspirin 81 mg tablet,delayed 81 mg PO DAILY 03/05/23 05/08/23 History release melatonin 3 mg tablet 3 mg PO HS PRN Insomnia 03/05/23 05/08/23 History multivitamin 1 tab PO DAILY 03/05/23 05/08/23 History metoprolol tartrate 25 mg tablet 12.5 mg PO BID 05/08/23 05/08/23 History Patient History Medical History Anemia CAD (coronary artery disease) Non-obstructive per 06/2021 cardiac cath GERD (gastroesophageal reflux disease) controlled, stable per pt History of blood transfusion History of DVT (deep vein thrombosis) ~6 yrs ago History of GI bleed Upper GIB (2019) felt 2/2 NSAID use History of non-ST elevation myocardial infarction (NSTEMI) 06/2021 (had heart cath, no stents) History of pulmonary embolism ~ 6 yrs ago, IVC filter still in place History of recent hospitalization 09/2022 [facility] - sepsis History of supraventricular tachycardia Hx of gastric ulcer 02/2021 HX: breast cancer Left breast cancer with surgery and chemo/radiation-left arm restriction Hypertension controlled, stable per pt Limb alert care status left arm Multiple sclerosis Follows with Dr. Walker/[facility] Stable Neurogenic bladder SELF CATH 2-3 X'S PER DAY *RECENT HOSPITALIZATION FOR UTI Osteoarthritis of right shoulder Osteoporosis Raynaud disease Surgical History H/O left mastectomy with lymph node removal>LEFT ARM RESTRICTION History of appendectomy History of cardiac cath Cardiac cath (07/06/21; [facility]) > Right dominant coronary system. No evidence of aortic stenosis. Normal left ventricular filling pressures. Nonobstructive disease involving the ostial LAD. No evidence of acute coronary syndrome. Approximately 50% ostial stenosis of the LAD. There was some very mild disease at the ostium of the left circumflex. Recommendations: Medical management. History of colonoscopy History of esophagogastroduodenoscopy (EGD) History of open reduction and internal fixation (ORIF) procedure "left hip" History of tooth extraction Presence of intrathecal pump baclofen pump in place--status post revision/replacement 08/10/2022 S/P IVC filter S/P partial hysterectomy S/p reverse total shoulder arthroplasty right: 05/25/22 LMA#4. No postop issues per anesthesia progress note. Family History Mother Heart disorder Other No family history of adverse response to anesthesia Social History Smoking Status: Former smoker packs per day: 1; Second Hand Exposure: No; Do You Dip or Chew Tobacco: No; Hx Alcohol Use: No Hx Substance Use: No Preferred Language: Wallisian Communication Ability: Effective Visual Impairment: Limited Hearing Ability: Use of Hearing Aid Route Sales Person Required: No Beliefs That Will Affect Care: None marital status: / Current Living Situation: Alone Current Living Situation Comment: home alone- uses walker but needs a new one current occupational status: retired How many Children do You have: 3 Feels Safe at Home: Yes Safety Concerns: Feels Safe At This Time Childhood Exposure to Second-Hand Smoke: Yes Diet: regular caffeine: Yes Assistive Devices: Walker and Wheelchair Review of Systems Review of Systems: All systems reviewed & are unremarkable except as noted in Subjective Physical Exam Constitutional: + frail appearing, cooperative and comfortable Neck: normal visual inspection and trachea midline Skin: + ulcer (Right lateral ankle full thickness) and + wound (Left anterior leg with adjacent erythema) Neurologic: moves all extremities (Absent epicritic sensation to legs and feet) Psychiatric: Orientation: alert and oriented x 3 Results & Data Vital Signs (Past 12 Hours) Vital Signs Temp Pulse Pulse Resp BP Pulse Ox O2 Del Method 05/09/23 12:20 36.8 C 80 19 83/56 L 95 Room Air 05/09/23 07:30 97 H 05/09/23 07:54 37.4 C 93 H 20 110/71 96 Room Air 05/09/23 06:04 37.7 C H Diagnostic Findings [place], [place] [phone] Magnetic Resonance Report Patient:NADEEN ANNE Admit Date:05/08/23 MR#:[id number] Address1:[address] Acct ID:[id number] Address2: Date:[address] [facility] Zip:[place] [address] Age:72 Location:4W [facility] Att Phy:Haylie Serrano MD Diagnosis:SEPSIS Jenifer Phy:Simi Hernandez CRNP Service Date:05/09/23 Fam Phy: Interpreting Phy:Morales Hanna MDAdmit Phy:Solange Wall DO Ordering Phy:Haylie Serrano MD cc: ~ MR ankle RT wo/w con CLINICAL HISTORY: Rule out Osteomyelitis TECHNIQUE: Multisequence, multiplanar MR images of the right ankle were obtained with and without contrast. COMPARISON: Comparison is made to right ankle 04/19/2023 FINDINGS: There is bony edema of the lateral malleolus. Enhancement is seen at this level. There is soft tissue swelling with an ulcer at the lateral malleolus. IMPRESSION: Findings are compatible with cellulitis with underlying osteomyelitis. ACT 112: Negative or not required by law. Electronically signed by: Morales Hanna M.D. 05/09/2023 4:19 PM Dictated:05/09/231616 Transcribed: 05/09/231616 (2) Chronic ulcer of right foot Non-pressure ulcer stage: unspecified non-pressure ulcer stage Qualified Code(s): L97.519 - Non-pressure chronic ulcer of other part of right foot with unspecified severity
[2023-05-09] MEDS: TERIFLUNOMIDE PO SCH (21:58)
[2023-05-09] MEDS: MELATONIN 3 MG TAB PO PRN (22:39)
[2023-05-10] MEDS: CEFEPIME 2,000 MG in SYRINGE 0 ML IV SCH ×3 (06:04→20:50)
[2023-05-10 06:10] LABS: Hematocrit (blood only) 30.6 % (37.0-47.0); Hemoglobin 9.6 g/dl (12.0-16.0); Mean Corpuscular Hemoglobin 29.2 pg (25.0-34.0); Mean Corpuscular Hgb Conc 31.4 g/dL (32.0-36.0); Mean Platelet Volume 10.6 fL (9.4-12.4); Platelet Count 221 K/uL (130-400); RDW Coefficient of Variation 17.3 % (11.5-14.5); RDW Standard Deviation 58.6 fL (36.4-46.3); Red Blood Count 3.29 M/uL (4.20-5.40); White Blood Count 4.35 K/ul (4.8-10.8)
[2023-05-10 06:28] LABS: BUN Creatinine Ratio 23.4 (10-20); Calcium 8.5 mg/dl (8.6-10.3); Creatinine Clr Calc Pharmacy 65.2 ml/min; Est GFR (African American) 90.7 ml/min; Est GFR (Non-African American) 78.2 ml/min; Magnesium 1.9 mg/dl (1.7-2.4); Phosphorus 2.9 mg/dl (2.5-4.9); Potassium 3.7 mmol/L (3.5-5.1)
[2023-05-10] MEDS ORDERED: VANCOMYCIN LEVEL ONE (07:30)
[2023-05-10] MEDS: VANCOMYCIN HCL 750 MG in SODIUM CHLORIDE 0.9% 250 ML IV SCH ×2 (07:50→19:34)
--- NOTE | 2023-05-10 08:32 | Pharmacy Report ---
Pharmacy PK ABX Note - Date of Service May 10, 2023 - Assessment and Plan Assessment 72 year old F receiving Vancomycin and Cefepime for treatment of osteomyelitis. Patient scheduled for debridement on 05/12/23. * Day #3 of antimicrobial therapy. * H/o MS on chronic Prednisone and Aubagio. Presented to ER w/ chills. Chronic right foot ulcer wound. * Febrile at 38.8oC. Leukocytosis of 16.3k. Lactate 2.2, down to 1.6 following fluids. Procalcitonin elevated at 3.07. * Tmax on day 2 of therapy was 38.1 - leukocytosis has resolved. * Blood cultures currently NGTD Plan Vancomycin * Maintenance dose: 750 mg IV every 12 hours * Trough today was 13 which is predicted to achieve target AUC/STEPHEN of 400-600 mg/L.hr * Random level to be ordered if continued past 5 days Pharmacy will continue to follow and will adjust dose/frequency as necessary. Thank you. Pharmacy has transitioned to AUC monitoring for vancomycin. AUC/STEPHEN is the preferred PK/PD target and is associated with decreased risk of nephrotoxicity compared to traditional trough targets.
[2023-05-10] MEDS: ATORVASTATIN 20 MG TAB PO SCH (09:15)
[2023-05-10] MEDS: ASPIRIN 81 MG ECTAB PO SCH (09:15)
[2023-05-10] MEDS: METOPROLOL TARTRATE 25 MG TAB PO SCH ×2 (09:16→20:58)
[2023-05-10] MEDS: CHOLECALCIFEROL 1,000 UNITS 25 MCG TAB PO SCH (09:16)
[2023-05-10] MEDS: ESCITALOPRAM OXALATE 20 MG TAB PO SCH (09:16)
[2023-05-10] MEDS: MULTIVITAMIN TAB PO SCH (09:17)
[2023-05-10] MEDS: OXYBUTYNIN CHLORIDE XL 5 MG TABCR PO SCH (09:18)
[2023-05-10] MEDS: PANTOprazole 40 MG TAB PO SCH (09:18)
[2023-05-10] MEDS: predniSONE 10 MG TABLET PO SCH (09:18)
[2023-05-10] MEDS: tiZANidine HCL 4 MG TABLET PO SCH ×4 (09:19→20:53)
--- NOTE | 2023-05-10 13:43 | Hospitalist Progress Note ---
Date of Service May 10, 2023 Assessment & Plan (1) Sepsis: (2) Osteomyelitis of ankle: (3) Hypotension: (4) Ulcer of right ankle: Plan: 72-year-old female with PMH CAD, paroxysmal atrial fibrillation, history of PE/DVT, s/p IVC filter, anticoagulated on Eliquis, chronic anemia, HTN, HLD, chronic pain, history of left breast cancer s/p surgery, radiation, neurogenic bladder that self catheterizes presented to ER with c/o chills. Chronic Right ulcer wound In ER T: 37.6 C, P: 88, RR: 16, initial BP 101/60 dropped to 82/56. Was given 1500 mL NSS with repeat BP of 129/85 WBC: 16, lactate: 2.2, procalcitonin 3. UA unremarkable. Negative SARS-CoV-2 PCR CXR: No acute abnormalities and in particular no radiographic evidence of pneumonia. Right foot x-ray: No radiographic evidence of osteomyelitis. MRI right foot show findings of osteomyelitis Sepsis Sepsis due to Right ankle cellulitis and osteomyelitis Blood cultures negative so far Podiatry eval noted. Planned for OR on 05/12/23 Continue IV vanc and cefepime Leukocytosis resolved Get MRSA screen (5) Elevated troponin: Plan: Initial high-sensitivity troponin: 61. EKG sinus rhythm rate 90, Q waves septal and anterior leads. EKG from 03/05/2023 with Q waves septal leads noted Patient denies chest pain, shortness of breath History of chronically elevated high-sensitivity troponins in past. Most recent was 38 on 03/05/23 May be demand ischemia secondary to sepsis Echo 10/17/2022: EF: 65-70%, no wall motion abnormality, grade 1 diastolic dysfunction Trop trended down Continue aspirin, atorvastatin (6) History of pulmonary embolism: Plan: History of PE/DVT. History of IVC filter. Chronically anticoagulated on Eliquis Eliquis held in view of planned surgery in 2 days Discussed with pharm. Will do hep drip for now which can be held midnight before OR (7) Paroxysmal atrial fibrillation: Plan: Anticoagulated on Eliquis Current sinus rhythm Eliquis on hold as above. On hep gtt Continue metoprolol tartrate with holding parameters (8) Multiple sclerosis: Plan: On chronic prednisone Continue Aubagio, prednisone (9) CAD (coronary artery disease): Plan: History nonobstructive CAD Continue aspirin, statin (10) Chronic anemia: Plan: Hgb: 9.6 today. Baseline Hgb in 10's Monitor H&H (11) HX: breast cancer: Plan: History of left breast cancer s/p surgery, radiation DVT Prophylaxis On hep gtt while eliquis is on hold Full Code I spent a total of 45 minutes coordinating, documenting and providing care for this patient excluding time spent in performance of separately billed services Admission and Anticipated Discharge Date Admission Date: May 08, 2023 Subjective Patient seen and examined Reports feeling better today. Fever and chills have resolved Denied any nausea, vomiting, abd pain, diarrhea, cough, chest pain, SOB Patient has neurogenic bladder and straight caths at home Physical Exam Constitutional: + well hydrated; no acute distress Eyes: PERRL, conjunctivae normal, anicteric sclerae ENMT: external ear and nose normal, oropharynx normal Respiratory: normal respiratory effort, lungs clear to auscultation Cardiovascular: Rate/Rhythm: regular rate and regular rhythm S1 S2 Gastrointestinal (Abdomen): normal bowel sounds, soft, nontender, no hepatosplenomegaly Musculoskeletal: Right lateral malleolar region ulcer with mild tenderness. Has a small wound on anterior left leg with erythema Pedal edema Neurologic: PERRL, EOMI, accommodation nl, no face palsy, no dysarthria Psychiatric: A+Ox3, euthymic affect Results & Data Results & Data Vital Signs (Past 12 Hours) Vital Signs Temp Pulse Pulse Resp BP Pulse Ox O2 Del Method 05/10/23 11:24 36.6 C 102 H 20 94/56 L 92 Room Air 05/10/23 07:00 83 05/10/23 07:51 36.7 C 76 22 132/80 93 Room Air 05/10/23 03:00 36.9 C 86 18 109/72 94 Room Air Laboratory Results Abnormal lab results 05/10/23 05/10/23 Range/Units 05:30 05:30 WBC 4.35 L (4.8-10.8) K/ul RBC 3.29 L (4.20-5.40) M/uL Hgb 9.6 L (12.0-16.0) g/dl Hct 30.6 L (37.0-47.0) % MCHC 31.4 L (32.0-36.0) g/dL RDW Std Deviation 58.6 H (36.4-46.3) fL RDW Coeff of Tiffanie 17.3 H (11.5-14.5) % Chloride 110 H (98-107) mmol/L BUN/Creatinine Ratio 23.4 H (10-20) Calcium 8.5 L (8.6-10.3) mg/dl (3) Hypotension Hypotension type: unspecified hypotension type Qualified Code(s): I95.9 - Hypotension, unspecified
[2023-05-10] MEDS ORDERED: Heparin IV Adult Wt-Based Low-Dose *NO* Bolus Protocol IV SCH (14:06)
[2023-05-10 15:22] LABS: Partial Thromboplastin Time 27.1 Seconds (21.0-31.0); Prothrombin Time 10.9 Seconds (9.0-12.0)
[2023-05-10] MEDS: HEPARIN SODIUM/DEXTROSE 25,000 UNITS/500 ML BAG IV SCH (15:26)
[2023-05-10] MEDS: TERIFLUNOMIDE PO SCH (20:54)
[2023-05-10] MEDS: MELATONIN 3 MG TAB PO PRN (21:04)
[2023-05-10 22:46] LABS: Partial Thromboplastin Ratio 1.1; Partial Thromboplastin Time 30.8 Seconds (21.0-31.0)
[2023-05-10] MEDS ORDERED: HEPARIN SOD (PORCINE) 1000 UNIT/ML IV ONE (23:05)
[2023-05-11] MEDS: CEFEPIME 2,000 MG in SYRINGE 0 ML IV SCH ×3 (05:40→22:15)
[2023-05-11 05:48] LABS: Hematocrit (blood only) 28.9 % (37.0-47.0); Hemoglobin 9.4 g/dl (12.0-16.0); Mean Corpuscular Hemoglobin 29.3 pg (25.0-34.0); Mean Corpuscular Hgb Conc 32.5 g/dL (32.0-36.0); Platelet Count 214 K/uL (130-400); RDW Standard Deviation 55.7 fL (36.4-46.3); Red Blood Count 3.21 M/uL (4.20-5.40); White Blood Count 3.87 K/ul (4.8-10.8)
[2023-05-11 06:05] LABS: BUN Creatinine Ratio 23.7 (10-20); Calcium 8.3 mg/dl (8.6-10.3); Creatinine Clr Calc Pharmacy 66.8 ml/min; Est GFR (African American) 92.1 ml/min; Est GFR (Non-African American) 79.5 ml/min; Potassium 3.8 mmol/L (3.5-5.1)
[2023-05-11 06:35] LABS: Partial Thromboplastin Ratio 1.4
[2023-05-11 06:39] LABS: Partial Thromboplastin Time 40.6 Seconds (21.0-31.0)
[2023-05-11] MEDS: tiZANidine HCL 4 MG TABLET PO SCH ×4 (08:47→20:25)
[2023-05-11] MEDS: METOPROLOL TARTRATE 25 MG TAB PO SCH ×2 (08:47→20:26)
[2023-05-11] MEDS: CHOLECALCIFEROL 1,000 UNITS 25 MCG TAB PO SCH (08:48)
[2023-05-11] MEDS: ATORVASTATIN 20 MG TAB PO SCH (08:48)
[2023-05-11] MEDS: ASPIRIN 81 MG ECTAB PO SCH (08:48)
[2023-05-11] MEDS: MULTIVITAMIN TAB PO SCH (08:49)
[2023-05-11] MEDS: PANTOprazole 40 MG TAB PO SCH (08:49)
[2023-05-11] MEDS: ESCITALOPRAM OXALATE 20 MG TAB PO SCH (08:49)
[2023-05-11] MEDS: predniSONE 10 MG TABLET PO SCH (08:50)
[2023-05-11] MEDS: OXYBUTYNIN CHLORIDE XL 5 MG TABCR PO SCH (08:50)
[2023-05-11] MEDS: VANCOMYCIN HCL 750 MG in SODIUM CHLORIDE 0.9% 250 ML IV SCH (09:05)
[2023-05-11] MEDS: VANCOMYCIN HCL 1,000 MG in SODIUM CHLORIDE 0.9% 250 ML IV SCH ×2 (09:17→20:33)
--- NOTE | 2023-05-11 10:42 | Hospitalist Progress Note ---
Date of Service May 11, 2023 Assessment & Plan (1) Sepsis: (2) Osteomyelitis of ankle: (3) Hypotension: (4) Ulcer of right ankle: Plan: 72-year-old female with PMH CAD, paroxysmal atrial fibrillation, history of PE/DVT, s/p IVC filter, anticoagulated on Eliquis, chronic anemia, HTN, HLD, chronic pain, history of left breast cancer s/p surgery, radiation, neurogenic bladder that self catheterizes presented to ER with c/o chills. Chronic Right ulcer wound In ER T: 37.6 C, P: 88, RR: 16, initial BP 101/60 dropped to 82/56. Was given 1500 mL NSS with repeat BP of 129/85 WBC: 16, lactate: 2.2, procalcitonin 3. UA unremarkable. Negative SARS-CoV-2 PCR CXR: No acute abnormalities and in particular no radiographic evidence of pneumonia. Right foot x-ray: No radiographic evidence of osteomyelitis. MRI right ankle show findings compatible with cellulitis with underlying osteomyelitis. MRI Left leg with findings as below 1. Moderate subcutaneous edema suggestive of cellulitis, lymphedema or venous stasis. 2. No fluid collection to suggest abscess. 3. Normal bone marrow signal. Plan Sepsis due to Right ankle cellulitis and osteomyelitis- sepsis resolved Blood cultures negative so far Podiatry eval noted. Planned for OR on 05/12/23 Continue empiric vanc and cefepime ID eval afterwards (5) Elevated troponin: Plan: Initial high-sensitivity troponin: 61. EKG sinus rhythm rate 90, Q waves septal and anterior leads. EKG from 03/05/2023 with Q waves septal leads noted Patient denies chest pain, shortness of breath History of chronically elevated high-sensitivity troponins in past. Most recent was 38 on 03/05/23 May be demand ischemia secondary to sepsis Echo 10/17/2022: EF: 65-70%, no wall motion abnormality, grade 1 diastolic dysfunction Trop trended down Continue aspirin, atorvastatin (6) History of pulmonary embolism: Plan: History of PE/DVT. History of IVC filter. Chronically anticoagulated on Eliquis Eliquis held in view of planned surgery in 2 days Continue heparin drip- hold at 4 am for planned surgery around 10:30 am tomorrow. Communicated with RN. Hold order placed. (7) Paroxysmal atrial fibrillation: Plan: Anticoagulated on Eliquis Current sinus rhythm Eliquis on hold as above. On hep gtt Continue metoprolol tartrate with holding parameters (8) Multiple sclerosis: Plan: On chronic prednisone Continue Aubagio, prednisone (9) CAD (coronary artery disease): Plan: History nonobstructive CAD Continue aspirin, statin (10) Chronic anemia: Plan: Hgb: 9.6 today. Baseline Hgb in 10's Monitor H&H (11) HX: breast cancer: Plan: History of left breast cancer s/p surgery, radiation DVT Prophylaxis-On hep gtt while eliquis is on hold Dispo- Continue current level of care. OR tomorrow per podiatry. Admission and Anticipated Discharge Date Admission Date: May 08, 2023 Subjective Patient was seen and examined at bedside. She has intermittent pain in the leg over the past few weeks. She is anxious about the surgery tomorrow and anxious if she might lose her foot. No new issues. No fever, chills, chest pain or shortness of breath nausea or vomiting. Review of Systems Review of Systems: All systems reviewed & are unremarkable except as noted in Subjective Physical Exam Physical Exam: General: Lying comfortably in bed, not in distress, on room air HEENT: EOMI, BENJAMÍN, MMM Chest: Clear breath sounds bilaterally, no wheezes or crackles CVS: Regular rate and rhythm, normal heart sounds, no murmur Abdomen: Soft, non tender, not distended, normal bowel sounds Neuro: Awake, alert, oriented, conversing well, non focal Extremities: LE wounds/ulcers evaluated on pictures. Mepilex on place. Psych: Anxious, appreciative Results & Data Results & Data Vital Signs (Past 12 Hours) Vital Signs Temp Pulse Resp BP Pulse Ox O2 Del Method 05/11/23 08:05 36.9 C 84 19 126/70 95 Room Air 05/11/23 02:51 36.4 C L 75 16 128/76 97 Room Air 05/10/23 22:46 36.3 C L 71 17 112/74 96 Room Air Laboratory Results Short CBC 05/11/23 Range/Units 05:27 WBC 3.87 L (4.8-10.8) K/ul Hgb 9.4 L (12.0-16.0) g/dl Hct 28.9 L (37.0-47.0) % Plt Count 214 (130-400) K/uL BMP 05/11/23 05:27 Sodium 140 Potassium 3.8 Chloride 110 H Carbon Dioxide 25 BUN 18 Creatinine 0.76 Glucose 86 Calcium 8.3 L Medications Administered Current Inpatient Medications Acetaminophen (Acetaminophen 325 Mg Tab) 650 mg PO Q4H PRN PRN Reason: Pain or Fever Stop: 06/07/23 22:12 Last Admin: 05/09/23 05:02 Dose: 650 mg Apixaban (Apixaban 5 Mg Tablet) 5 mg PO BID REPLACED BY [facility] Stop: 06/07/23 22:12 Last Admin: 05/09/23 22:00 Dose: 5 mg Aspirin (Aspirin 81 Mg Ectab) 81 mg PO DAILY REPLACED BY [facility] Stop: 06/08/23 08:59 Last Admin: 05/11/23 08:48 Dose: 81 mg Atorvastatin Calcium (Atorvastatin 20 Mg Tab) 20 mg PO QAM REPLACED BY [facility] Stop: 06/08/23 08:59 Last Admin: 05/11/23 08:48 Dose: 20 mg Escitalopram Oxalate (Escitalopram Oxalate 20 Mg Tab) 20 mg PO QAM REPLACED BY [facility] Stop: 06/08/23 08:59 Last Admin: 05/11/23 08:49 Dose: 20 mg Cefepime HCl 2,000 mg/ Syringe 20 mls @ 5 mls/min IV Q8H REPLACED BY [facility]; Protocol Stop: 06/21/23 13:59 Last Admin: 05/11/23 05:40 Dose: 5 mls/min Heparin Sodium/Dextrose (Heparin Sodium/Dextrose) 25,000 units in 500 mls @ 16 mls/hr IV .Q24H REPLACED BY [facility]; Protocol Stop: 06/09/23 14:29 Last Titration: 05/11/23 06:53 Dose: 800 units/hr, 16 mls/hr Vancomycin HCl 1,000 mg/ (Sodium Chloride) 270 mls @ 200 mls/hr IV Q12H REPLACED BY [facility] Stop: 06/22/23 08:59 Last Admin: 05/11/23 09:17 Dose: 200 mls/hr Melatonin (Melatonin 3 Mg Tab) 3 mg PO HS PRN PRN Reason: Insomnia Stop: 06/07/23 22:12 Last Admin: 05/10/23 21:04 Dose: 3 mg Metoprolol Tartrate (Metoprolol Tartrate 25 Mg Tab) 12.5 mg PO BID REPLACED BY [facility] Stop: 06/07/23 22:12 Last Admin: 05/11/23 08:47 Dose: 12.5 mg Miscellaneous Information (Vancomycin Consult Active) 1 each N/A UD PRN PRN Reason: Consult Stop: 06/07/23 22:12 Multivitamins (Multivitamin Tab) 1 tab PO DAILY REPLACED BY [facility] Stop: 06/08/23 08:59 Last Admin: 05/11/23 08:49 Dose: 1 tab Teriflunomide~Non- Formulary Patient's Own Med 1 each PO HS REPLACED BY [facility] Stop: 06/08/23 20:59 Last Admin: 05/10/23 20:54 Dose: 14 mg Ondansetron HCl (Ondansetron Inj 2 Mg/Ml 2 Ml Vial) 4 mg IV Q6H PRN PRN Reason: Nausea Stop: 06/07/23 22:12 Oxybutynin Chloride (Oxybutynin Chloride Xl 5 Mg Tabcr) [facility] Stop: 06/08/23 08:59 Last Admin: 05/11/23 08:50 Dose: 15 mg Pantoprazole Sodium (Pantoprazole 40 Mg Tab) 40 mg PO [facility]; Protocol Stop: 06/08/23 08:59 Last Admin: 05/11/23 08:49 Dose: 40 mg Polyethylene Glycol (Polyethylene (Miralax) 17 Gm Pack) 17 gm PO DAILY PRN PRN Reason: Constipation Stop: 06/07/23 22:12 Prednisone (Prednisone 10 Mg Tablet) 10 mg PO [facility] Stop: 06/08/23 08:59 Last Admin: 05/11/23 08:50 Dose: 10 mg Tizanidine HCl (Tizanidine Hcl 4 Mg Tablet) 4 mg PO QID REPLACED BY [facility] Stop: 06/07/23 22:59 Last Admin: 05/11/23 08:47 Dose: 4 mg Vitamin D (Cholecalciferol 1,000 Units 25 Mcg Tab) [facility] Stop: 06/08/23 08:59 Last Admin: 05/11/23 08:48 Dose: 1,000 units (3) Hypotension Hypotension type: unspecified hypotension type Qualified Code(s): I95.9 - Hypotension, unspecified
[2023-05-11] MEDS: HEPARIN SODIUM/DEXTROSE 25,000 UNITS/500 ML BAG IV SCH (14:08)
[2023-05-11] MEDS: TERIFLUNOMIDE PO SCH (20:26)
--- NOTE | 2023-05-11 22:11 | Orthopedic Progress Note ---
Date of Service May 11, 2023 Assessment & Plan (1) Ulcer of right ankle: Plan: Patient seen, evaluated, and treated. Reviewed Right lower extremity cellulitis. Reviewed MRI showing osteomyelitis of Right lateral fibula. Reviewed considerable non viable tissue on physical exam overlying right ankle wound Discussed with Patient debridement of Right lateral ankle wound in OR with possible application of wound vac. Patient scheduled for procedure 05/12/23 at 10:30am. Thank you for allowing me to participate in the care of this Patient. (2) Chronic ulcer of right foot: (3) Cellulitis of left lower leg: Admission and Anticipated Discharge Date Admission Date: May 08, 2023 Subjective Patient was seen and examined at bedside. Patient scheduled for surgical care tomorrow. No new issues. No fever, chills, chest pain or shortness of breath nausea or vomiting. Review of Systems Review of Systems: All systems reviewed & are unremarkable except as noted in Subjective Physical Exam Constitutional: + frail appearing, cooperative and comfortable Neck: normal visual inspection and trachea midline Skin: + ulcer (Right lateral ankle full thickness) and + wound (Left anterior leg with adjacent erythema) Neurologic: moves all extremities (Absent epicritic sensation to legs and feet) Psychiatric: Orientation: alert and oriented x 3 Results & Data Vital Signs (Past 12 Hours) Vital Signs Temp Pulse Resp BP Pulse Ox O2 Del Method 05/11/23 19:00 36.3 C L 72 18 125/78 97 Room Air 05/11/23 15:00 36.7 C 77 18 109/72 99 Room Air 05/11/23 11:49 36.4 C L 77 20 110/70 94 Room Air (2) Chronic ulcer of right foot Non-pressure ulcer stage: unspecified non-pressure ulcer stage Qualified Code(s): L97.519 - Non-pressure chronic ulcer of other part of right foot with unspecified severity
[2023-05-12] MEDS: CEFEPIME 2,000 MG in SYRINGE 0 ML IV SCH ×3 (05:58→21:53)
[2023-05-12 06:33] LABS: Hematocrit (blood only) 31.2 % (37.0-47.0); Hemoglobin 10.2 g/dl (12.0-16.0); Mean Corpuscular Hemoglobin 29.2 pg (25.0-34.0); Mean Corpuscular Hgb Conc 32.7 g/dL (32.0-36.0); Mean Corpuscular Volume 89.4 fL (80.0-100.0); Platelet Count 245 K/uL (130-400); RDW Coefficient of Variation 16.9 % (11.5-14.5); Red Blood Count 3.49 M/uL (4.20-5.40); White Blood Count 3.94 K/ul (4.8-10.8)
[2023-05-12 06:36] LABS: BUN Creatinine Ratio 20.8 (10-20); Calcium 8.4 mg/dl (8.6-10.3); Creatinine Clr Calc Pharmacy 66.3 ml/min; Est GFR (African American) 90.7 ml/min; Est GFR (Non-African American) 78.2 ml/min; Magnesium 1.8 mg/dl (1.7-2.4)
[2023-05-12 06:51] LABS: Partial Thromboplastin Ratio 0.9; Partial Thromboplastin Time 25.9 Seconds (21.0-31.0)
[2023-05-12] MEDS: VANCOMYCIN HCL 1,000 MG in SODIUM CHLORIDE 0.9% 250 ML IV SCH ×2 (09:02→21:51)
[2023-05-12] MEDS: ESCITALOPRAM OXALATE 20 MG TAB PO SCH (09:02)
[2023-05-12] MEDS: ATORVASTATIN 20 MG TAB PO SCH (09:02)
[2023-05-12] MEDS: ASPIRIN 81 MG ECTAB PO SCH (09:02)
[2023-05-12] MEDS: OXYBUTYNIN CHLORIDE XL 5 MG TABCR PO SCH (09:02)
[2023-05-12] MEDS: CHOLECALCIFEROL 1,000 UNITS 25 MCG TAB PO SCH (09:02)
[2023-05-12] MEDS: PANTOprazole 40 MG TAB PO SCH (09:02)
[2023-05-12] MEDS: MULTIVITAMIN TAB PO SCH (09:02)
[2023-05-12] MEDS: METOPROLOL TARTRATE 25 MG TAB PO SCH ×2 (09:03→21:53)
[2023-05-12] MEDS: predniSONE 10 MG TABLET PO SCH (09:03)
[2023-05-12] MEDS: tiZANidine HCL 4 MG TABLET PO SCH ×4 (09:03→21:53)
--- NOTE | 2023-05-12 10:30 | History & Physical Bridge Note ---
Date of Service May 12, 2023 History & Physical Bridge Note I have examined the patient, reviewed the History & Physical and in the interval since the performance of the History & Physical I have noted the following changes of clinical significance: no changes noted
[2023-05-12] MEDS ORDERED: MIDAZOLAM HCL 1 MG/ML 2ML VIAL ONE (10:42)
[2023-05-12] MEDS ORDERED: fentaNYL citrate PF 100 MCG/2 ML VIAL ONE (10:42)
[2023-05-12] MEDS ORDERED: ONDANSETRON INJ 2 MG/ML 2 ML VIAL IV PRN (10:47)
[2023-05-12] MEDS ORDERED: ATROPINE SULFATE 0.1 MG/ML 10ML SYR IV PRN (10:47)
[2023-05-12] MEDS ORDERED: HYDROmorphone INJ 2 MG/ML SYR/VIAL IV PRN (10:47)
[2023-05-12] MEDS ORDERED: ePHEDrine sulfate 50 MG/ML AMP IV PRN (10:47)
[2023-05-12] MEDS ORDERED: fentaNYL citrate PF 100 MCG/2 ML VIAL IV PRN (10:47)
--- NOTE | 2023-05-12 10:47 | Anesthesiology Consultation ---
Date of Service May 12, 2023 Assessment & Plan ASA ASA3 Proposed Anesthesia Anesthesia Type: General Risk / Benefits Reviewed With: PT / POA / Parent / Guardian, Accepts Plan and Informed Consent Obtained Additional Comments: uses a wheel chair. baclofen pump History Surgery Operation Date: 05/12/23 10:30 Proposed Procedures p Right Fibula Excision Non-Viable Bone with Wound Vac - Andrea Velasco DPM, [place] Height/Weight Height: 5 ft 4 in Weight: 72.3 kg Allergies Allergy/AdvReac Type Severity Reaction Status Date / Time No Known Allergies Allergy Verified 05/08/23 19:26 Medications Home Medications Medication Instructions Recorded Confirmed Last Taken cholecalciferol (vitamin D3) 25 1,000 units PO QAM 09/18/18 05/08/23 11/02/22 mcg (1,000 unit) capsule escitalopram oxalate 20 mg tablet 20 mg PO QAM 09/18/18 05/08/23 05/08/23 09:00 (Lexapro) oxybutynin chloride 15 mg 15 mg PO QAM 09/18/18 05/08/23 05/08/23 09:00 tablet,extended release 24 hr prednisone 10 mg tablet 10 mg PO QAM 09/18/18 05/08/23 05/08/23 09:00 omeprazole 40 mg capsule,delayed 40 mg PO QAM 07/06/21 05/08/23 05/08/23 09:00 release apixaban 5 mg tablet (Eliquis) 5 mg PO BID #60 tabs 07/09/21 05/08/23 05/08/23 09:00 teriflunomide 14 mg tablet 14 mg PO QPM 05/13/22 05/08/23 11/03/22 (Aubagio) tizanidine 4 mg tablet (Zanaflex) 4 mg PO QID 05/13/22 05/08/23 11/04/22 08:00 atorvastatin 20 mg tablet (Lipitor) 20 mg PO QAM 08/10/22 05/08/23 05/08/23 09:00 doxycycline hyclate 50 mg capsule 50 mg PO Q OTHER DAY Rosacea 08/10/22 05/08/23 05/07/23 azelaic acid 15 % topical gel 1 applic topical DAILY 10/21/22 05/08/23 10/20/22 acetaminophen 500 mg tablet 500 mg PO Q6H PRN Pain 03/05/23 05/08/23 Unknown aspirin 81 mg tablet,delayed 81 mg PO DAILY 03/05/23 05/08/23 05/08/23 09:00 release melatonin 3 mg tablet 3 mg PO HS PRN Insomnia 03/05/23 05/08/23 Unknown multivitamin 1 tab PO DAILY 03/05/23 05/08/23 Unknown metoprolol tartrate 25 mg tablet 12.5 mg PO BID 05/08/23 05/08/23 05/08/23 09:00 Active Medications Generic Name Dose Route Start Last Admin Trade Name Freq PRN Reason Stop Dose Admin Acetaminophen 650 mg 05/08/23 22:13 05/09/23 05:02 Acetaminophen 325 Mg Tab PO 06/07/23 22:12 650 mg Q4H PRN Administration Pain or Fever Apixaban 5 mg 05/08/23 22:13 05/09/23 22:00 Apixaban 5 Mg Tablet PO 06/07/23 22:12 5 mg BID MICHELLE Administration Aspirin 81 mg 05/09/23 09:00 05/12/23 09:02 Aspirin 81 Mg Ectab PO 06/08/23 08:59 81 mg DAILY MICHELLE Administration Atorvastatin Calcium 20 mg 05/09/23 09:00 05/12/23 09:02 Atorvastatin 20 Mg Tab PO 06/08/23 08:59 20 mg QAM MICHELLE Administration Escitalopram Oxalate 20 mg 05/09/23 09:00 05/12/23 09:02 Escitalopram Oxalate 20 Mg Tab PO 06/08/23 08:59 20 mg QAM MICHELLE Administration Cefepime HCl 2,000 mg/ Syringe 20 mls @ 5 mls/min 05/10/23 14:00 05/12/23 05:58 IV 06/21/23 13:59 5 mls/min Q8H MICHELLE Administration Protocol Heparin Sodium/Dextrose 25,000 units in 500 mls @ 16 mls/hr 05/10/23 14:30 05/12/23 04:00 Heparin Sodium/Dextrose IV 06/09/23 14:29 Infused .Q24H MICHELLE Titration Protocol 800 UNITS/HR Vancomycin HCl 1,000 mg/ 270 mls @ 200 mls/hr 05/11/23 09:00 05/12/23 10:32 Sodium Chloride IV 06/22/23 08:59 Infused Q12H MICHELLE Infusion Melatonin 3 mg 05/08/23 22:13 05/10/23 21:04 Melatonin 3 Mg Tab PO 06/07/23 22:12 3 mg HS PRN Administration Insomnia Metoprolol Tartrate 12.5 mg 05/08/23 22:13 05/12/23 09:03 Metoprolol Tartrate 25 Mg Tab PO 06/07/23 22:12 12.5 mg BID MICHELLE Administration Multivitamins 1 tab 05/09/23 09:00 05/12/23 09:02 Multivitamin Tab PO 06/08/23 08:59 1 tab DAILY MICHELLE Administration Teriflunomide~Non- 1 each 05/09/23 21:00 05/11/23 20:26 Formulary Patient's PO 06/08/23 20:59 14 mg Own Med HS MICHELLE Administration Oxybutynin Chloride 15 mg 05/09/23 09:00 05/12/23 09:02 Oxybutynin Chloride Xl 5 Mg Tabcr PO 06/08/23 08:59 15 mg QAM MICHELLE Administration Pantoprazole Sodium 40 mg 05/09/23 09:00 05/12/23 09:02 Pantoprazole 40 Mg Tab PO 06/08/23 08:59 40 mg QAM MICHELLE Administration Protocol Prednisone 10 mg 05/09/23 09:00 05/12/23 09:03 Prednisone 10 Mg Tablet PO 06/08/23 08:59 10 mg QAM MICHELLE Administration Tizanidine HCl 4 mg 05/08/23 23:00 05/12/23 09:03 Tizanidine Hcl 4 Mg Tablet PO 06/07/23 22:59 4 mg QID MICHELLE Administration Vitamin D 1,000 units 05/09/23 09:00 05/12/23 09:02 Cholecalciferol 1,000 Units 25 Mcg Tab PO 06/08/23 08:59 1,000 units QAM MICHELLE Administration NPO Date Last Intake of Fluids: 05/11/23 Time Last Intake of Fluids: 18:00 Last Intake of Fluids Comment: sips with AM meds Date Last Intake of Solids: 05/11/23 Time Last Intake of Solids: 18:00 Past Medical History Medical History Anemia CAD (coronary artery disease) Non-obstructive per 06/2021 cardiac cath GERD (gastroesophageal reflux disease) controlled, stable per pt History of blood transfusion History of DVT (deep vein thrombosis) ~6 yrs ago History of GI bleed Upper GIB (2019) felt 2/2 NSAID use History of non-ST elevation myocardial infarction (NSTEMI) 06/2021 (had heart cath, no stents) History of pulmonary embolism ~ 6 yrs ago, IVC filter still in place History of recent hospitalization 09/2022 [facility] - sepsis History of supraventricular tachycardia Hx of gastric ulcer 02/2021 HX: breast cancer Left breast cancer with surgery and chemo/radiation-left arm restriction Hypertension controlled, stable per pt Limb alert care status left arm Multiple sclerosis Follows with Dr. Walker/[facility] Stable Neurogenic bladder SELF CATH 2-3 X'S PER DAY *RECENT HOSPITALIZATION FOR UTI Osteoarthritis of right shoulder Osteoporosis Raynaud disease Exercise / Class Metabolic Activity II 4-5 Yardwork/Stairs/Walk up hill Past Family History Family History Mother Heart disorder Other No family history of adverse response to anesthesia Past Surgical History Surgical History H/O left mastectomy with lymph node removal>LEFT ARM RESTRICTION History of appendectomy History of cardiac cath Cardiac cath (07/06/21; [facility]) > Right dominant coronary system. No evidence of aortic stenosis. Normal left ventricular filling pressures. Nonobstructive disease involving the ostial LAD. No evidence of acute coronary syndrome. Approximately 50% ostial stenosis of the LAD. There was some very mild disease at the ostium of the left circumflex. Recommendations: Medical management. History of colonoscopy History of esophagogastroduodenoscopy (EGD) History of open reduction and internal fixation (ORIF) procedure "left hip" History of tooth extraction Presence of intrathecal pump baclofen pump in place--status post revision/replacement 08/10/2022 S/P IVC filter S/P partial hysterectomy S/p reverse total shoulder arthroplasty right: 05/25/22 LMA#4. No postop issues per anesthesia progress note. Past Anesthesia History No Hx of Anesthesia Complications and No Family Hx of Anesthesia Complications History of PONV No Hx of PONV and No Hx of Motion Sickness Social History Smoking Status: Former smoker tobacco type: cigarettes Do You Dip or Chew Tobacco: No Hx Alcohol Use: No Alcohol type: wine Hx Substance Use: No substance use type: does not use Review of Systems denies fever/cough/ colds/ chest pain/ SOB/ MAAME denies MAAME Physical Exam Vital Signs Last Vital Signs Temp 36.9 C 05/12/23 09:52 Pulse 61 05/12/23 09:52 Resp 18 05/12/23 09:52 BP 158/92 H 05/12/23 09:52 Pulse Ox 95 05/12/23 09:52 O2 Del Method Room Air 05/12/23 09:52 ENMT Mouth: no TMJ abnormality and no dentition abnormality Thyromental Distance: > or= 3.5 Finger Breadths Mallampati Class: III Neck neck extension not limited Respiratory normal respiratory effort; no respiratory distress Auscultation: lungs clear to auscultation bilaterally Cardiovascular Rate/Rhythm: regular rate and regular rhythm Neurologic moves all extremities Psychiatric Orientation: alert and oriented x 3 Testing Laboratory Results 05/12/23 05:51 05/12/23 05:51 PT 10.9 Seconds (9.0-12.0) 05/10/23 14:21 INR 1.0 (0.9-1.1) 05/10/23 14:21 APTT 25.9 Seconds (21.0-31.0) 05/12/23 05:51 Urine Color Dark Yellow 05/08/23 16:23 Urine Appearance Clear (Clear) 05/08/23 16:23 Urine pH 5.5 (4.5-7.5) 05/08/23 16:23 Ur Specific [place] 1.020 (1.000-1.030) 05/08/23 16:23 Urine Protein Negative (Negative) 05/08/23 16:23 Urine Glucose (UA) Negative (Negative) 05/08/23 16:23 Urine Ketones Trace (Negative) H 05/08/23 16:23 Urine Nitrite Negative (Negative) 05/08/23 16:23 Ur Leukocyte Esterase Negative (Negative) 05/08/23 16:23 05/08/23 16:20 Aerobic Blood Culture - Preliminary Blood No growth in Aerobic bottle after 48 hours. Anaerobic Blood Culture - Preliminary No growth in Anaerobic bottle after 48 hours. 05/08/23 17:44 Aerobic Blood Culture - Preliminary Blood No growth in Aerobic bottle after 48 hours. Anaerobic Blood Culture - Preliminary No growth in Anaerobic bottle after 48 hours.
--- NOTE | 2023-05-12 11:21 | Hospitalist Progress Note ---
Date of Service May 12, 2023 Assessment & Plan (1) Sepsis: (2) Osteomyelitis of ankle: (3) Hypotension: (4) Ulcer of right ankle: Plan: 72-year-old female with PMH CAD, paroxysmal atrial fibrillation, history of PE/DVT, s/p IVC filter, anticoagulated on Eliquis, chronic anemia, HTN, HLD, chronic pain, history of left breast cancer s/p surgery, radiation, neurogenic bladder that self catheterizes presented to ER with c/o chills. Chronic Right ulcer wound In ER T: 37.6 C, P: 88, RR: 16, initial BP 101/60 dropped to 82/56. Was given 1500 mL NSS with repeat BP of 129/85 WBC: 16, lactate: 2.2, procalcitonin 3. UA unremarkable. Negative SARS-CoV-2 PCR CXR: No acute abnormalities and in particular no radiographic evidence of pneumonia. Right foot x-ray: No radiographic evidence of osteomyelitis. MRI right ankle show findings compatible with cellulitis with underlying osteomyelitis. MRI Left leg with findings as below 1. Moderate subcutaneous edema suggestive of cellulitis, lymphedema or venous stasis. 2. No fluid collection to suggest abscess. 3. Normal bone marrow signal. Plan Sepsis due to Right ankle cellulitis and osteomyelitis- sepsis resolved Blood cultures negative so far Podiatry eval noted. Planned for OR today- npo for the same, heparin drip on hold from this morning 4 am Vascular surgery has been consulted by podiatry for evaluation of peripheral artery disease given her bilateral lower extremity ulcers. Will get bilateral lower extremity arterial duplex. Continue empiric vanc and cefepime ID eval afterwards (5) Elevated troponin: Plan: Initial high-sensitivity troponin: 61. EKG sinus rhythm rate 90, Q waves septal and anterior leads. EKG from 03/05/2023 with Q waves septal leads noted Patient denies chest pain, shortness of breath History of chronically elevated high-sensitivity troponins in past. Most recent was 38 on 03/05/23 May be demand ischemia secondary to sepsis Echo 10/17/2022: EF: 65-70%, no wall motion abnormality, grade 1 diastolic dysfunction Trop trended down Continue aspirin, atorvastatin (6) History of pulmonary embolism: Plan: History of PE/DVT. History of IVC filter. Chronically anticoagulated on Eliquis Eliquis held in view of planned surgery in 2 days Continue heparin drip- hold at 4 am for planned surgery around 10:30 am tomorrow. Communicated with RN. Hold order placed. (7) Paroxysmal atrial fibrillation: Plan: Anticoagulated on Eliquis Current sinus rhythm Eliquis on hold as above. On hep gtt Continue metoprolol tartrate with holding parameters (8) Multiple sclerosis: Plan: On chronic prednisone Continue Aubagio, prednisone (9) CAD (coronary artery disease): Plan: History nonobstructive CAD Continue aspirin, statin (10) Chronic anemia: Plan: Hgb: 9.6 today. Baseline Hgb in 10's Monitor H&H (11) HX: breast cancer: Plan: History of left breast cancer s/p surgery, radiation DVT Prophylaxis- resume heparin drip versus Eliquis after surgery when okayed by podiatry depending on further procedures Dispo- Continue current level of care. OR today Updated daughter at bedside Admission and Anticipated Discharge Date Admission Date: May 08, 2023 Subjective Patient was seen and examined at bedside in presence of daughter. She is awaiting surgery. She continues to have intermittent pain. She and her daughter had multiple questions regarding the surgery and recovery. No fever, chills, nausea or vomiting. Physical Exam Physical Exam: General: Lying comfortably in bed, not in distress, on room air HEENT: EOMI, BENJAMÍN, MMM Chest: Clear breath sounds bilaterally, no wheezes or crackles CVS: Regular rate and rhythm, normal heart sounds, no murmur Abdomen: Soft, non tender, not distended, normal bowel sounds Neuro: Awake, alert, oriented, conversing well, non focal Extremities: LE wounds/ulcers evaluated on pictures. Mepilex on place. Psych: Anxious, appreciative Results & Data Results & Data Vital Signs (Past 12 Hours) Vital Signs Temp Pulse Pulse Resp BP Pulse Ox O2 Del Method 05/12/23 09:52 36.9 C 61 18 158/92 H 95 Room Air 05/12/23 08:00 90 05/12/23 08:00 Room Air 05/12/23 07:00 36.7 C 88 18 167/92 H 92 Room Air 05/12/23 02:45 36.5 C 83 18 181/79 H 94 Room Air Laboratory Results Short CBC 05/12/23 Range/Units 05:51 WBC 3.94 L (4.8-10.8) K/ul Hgb 10.2 L (12.0-16.0) g/dl Hct 31.2 L (37.0-47.0) % Plt Count 245 (130-400) K/uL [facility] 05/12/23 05:51 Sodium 141 Potassium 4.0 Chloride 109 H Carbon Dioxide 26 BUN 16 Creatinine 0.77 Glucose 84 Calcium 8.4 L Medications Administered Current Inpatient Medications Acetaminophen (Acetaminophen 325 Mg Tab) 650 mg PO Q4H PRN PRN Reason: Pain or Fever Stop: 06/07/23 22:12 Last Admin: 05/09/23 05:02 Dose: 650 mg Apixaban (Apixaban 5 Mg Tablet) 5 mg PO BID [facility] Stop: 06/07/23 22:12 Last Admin: 05/09/23 22:00 Dose: 5 mg Aspirin (Aspirin 81 Mg Ectab) 81 mg PO DAILY [facility] Stop: 06/08/23 08:59 Last Admin: 05/12/23 09:02 Dose: 81 mg Atorvastatin Calcium (Atorvastatin 20 Mg Tab) 20 mg PO QAM [facility] Stop: 06/08/23 08:59 Last Admin: 05/12/23 09:02 Dose: 20 mg Atropine Sulfate (Atropine Sulfate 0.1 Mg/Ml 10ml Syr) 0.5 mg IV Q1M PRN PRN Reason: PACU Use-HR<40 &/or Bradycardi Stop: 05/12/23 18:47 Ephedrine Sulfate (Ephedrine Sulfate 50 Mg/Ml Amp) 5 mg IV Q5M PRN PRN Reason: PACU Use Only-SBP<90 mmHg Stop: 05/12/23 18:47 Escitalopram Oxalate (Escitalopram Oxalate 20 Mg Tab) 20 mg PO QAM [facility] Stop: 06/08/23 08:59 Last Admin: 05/12/23 09:02 Dose: 20 mg Fentanyl Citrate (Fentanyl Citrate Pf 100 Mcg/2 Ml Vial) 50 mcg IV Q5M PRN PRN Reason: PACU Use Only-Pain Stop: 05/12/23 18:48 Hydromorphone HCl (Hydromorphone Inj 2 Mg/Ml Syr/Vial) 0.5 mg IV Q5M PRN PRN Reason: PACU Use Only-Pain Stop: 05/12/23 18:48 Cefepime HCl 2,000 mg/ Syringe 20 mls @ 5 mls/min IV Q8H [facility]; Protocol Stop: 06/21/23 13:59 Last Admin: 05/12/23 05:58 Dose: 5 mls/min Heparin Sodium/Dextrose (Heparin Sodium/Dextrose) 25,000 units in 500 mls @ 16 mls/hr IV .Q24H [facility]; Protocol Stop: 06/09/23 14:29 Last Titration: 05/12/23 04:00 Dose: Infused Vancomycin HCl 1,000 mg/ (Sodium Chloride) 270 mls @ 200 mls/hr IV Q12H [facility] Stop: 06/22/23 08:59 Last Infusion: 05/12/23 10:32 Dose: Infused Melatonin (Melatonin 3 Mg Tab) 3 mg PO HS PRN PRN Reason: Insomnia Stop: 06/07/23 22:12 Last Admin: 05/10/23 21:04 Dose: 3 mg Metoprolol Tartrate (Metoprolol Tartrate 25 Mg Tab) 12.5 mg PO BID [facility] Stop: 06/07/23 22:12 Last Admin: 05/12/23 09:03 Dose: 12.5 mg Miscellaneous Information (Vancomycin Consult Active) 1 each N/A UD PRN PRN Reason: Consult Stop: 06/07/23 22:12 Multivitamins (Multivitamin Tab) 1 tab PO DAILY [facility] Stop: 06/08/23 08:59 Last Admin: 05/12/23 09:02 Dose: 1 tab Teriflunomide~Non- Formulary Patient's Own Med 1 each PO HS [facility] Stop: 06/08/23 20:59 Last Admin: 05/11/23 20:26 Dose: 14 mg Ondansetron HCl (Ondansetron Inj 2 Mg/Ml 2 Ml Vial) 4 mg IV Q6H PRN PRN Reason: Nausea Stop: 06/07/23 22:12 Ondansetron HCl (Ondansetron Inj 2 Mg/Ml 2 Ml Vial) 4 mg IV ONCE PRN PRN Reason: PACU Use Only-Nausea/Vomiting Stop: 05/12/23 18:48 Oxybutynin Chloride (Oxybutynin Chloride Xl 5 Mg Tabcr) 15 mg PO QAM [facility] Stop: 06/08/23 08:59 Last Admin: 05/12/23 09:02 Dose: 15 mg Pantoprazole Sodium (Pantoprazole 40 Mg Tab) 40 mg PO [facility]; Protocol Stop: 06/08/23 08:59 Last Admin: 05/12/23 09:02 Dose: 40 mg Polyethylene Glycol (Polyethylene (Miralax) 17 Gm Pack) 17 gm PO DAILY PRN PRN Reason: Constipation Stop: 06/07/23 22:12 Prednisone (Prednisone 10 Mg Tablet) 10 mg PO [facility] Stop: 06/08/23 08:59 Last Admin: 05/12/23 09:03 Dose: 10 mg Tizanidine HCl (Tizanidine Hcl 4 Mg Tablet) 4 mg PO QID [facility] Stop: 06/07/23 22:59 Last Admin: 05/12/23 09:03 Dose: 4 mg Vitamin D (Cholecalciferol 1,000 Units 25 Mcg Tab) 1,000 units PO [facility] Stop: 06/08/23 08:59 Last Admin: 05/12/23 09:02 Dose: 1,000 units (3) Hypotension Hypotension type: unspecified hypotension type Qualified Code(s): I95.9 - Hypotension, unspecified
[2023-05-12] MEDS ORDERED: ONDANSETRON INJ 2 MG/ML 2 ML VIAL ONE (11:26)
[2023-05-12] MEDS ORDERED: DEXAMETHASONE SOD INJ 4 MG/ML VIAL ONE (11:26)
[2023-05-12] MEDS ORDERED: LIDOCAINE 2% 2 ML VIAL/AMP(20MG/ML) INFIL ONE (11:26)
[2023-05-12] MEDS ORDERED: PHENYLEPHRINE 100MCG/ML 5ML SYR ONE (11:26)
[2023-05-12] MEDS ORDERED: PROPOFOL IV EMULSION 10 MG/ML 20 ML VIAL IV ONE (11:26)
--- NOTE | 2023-05-12 11:49 | Post Operative Brief Note ---
Immediate Post Op Note v1 Date of Surgery May 12, 2023 Pre & Post Diagnosis Operation Date: 05/12/23 10:30 <No data on this case meets the specified criteria> I identified the patient and participated in the time-out.: Yes Procedure Operation Date: 05/12/23 10:30 <No data on this case meets the specified criteria> Surgeon Andrea Velasco, FRANCIS, MS Bus Person None Estimated Blood Loss 0 Findings Consistent with Post-Op Diagnosis consistent with pre operative diagnosis
--- NOTE | 2023-05-12 13:28 | Anesthesiology Progress Note ---
Date of Service May 12, 2023 Anesthesia Post Procedure Vital Signs Vital Signs: Temp Pulse Pulse Pulse Resp BP Pulse Ox 05/12/23 12:45 82 14 116/78 94 05/12/23 12:30 87 16 123/83 93 05/12/23 12:20 36.5 C 85 16 117/74 94 05/12/23 12:10 85 14 120/79 92 05/12/23 12:00 87 16 101/76 97 05/12/23 11:54 36.2 C L 81 19 107/73 94 05/12/23 09:52 36.9 C 61 18 158/92 H 95 05/12/23 08:00 90 05/12/23 08:00 05/12/23 07:00 36.7 C 88 18 167/92 H 92 05/11/23 22:00 72 05/12/23 02:45 36.5 C 83 18 181/79 H 94 05/11/23 22:58 36.5 C 70 16 128/78 98 05/11/23 20:26 05/11/23 19:00 36.3 C L 72 18 125/78 97 05/11/23 15:00 36.7 C 77 18 109/72 99 O2 Del Method 05/12/23 12:45 Room Air 05/12/23 12:30 Room Air 05/12/23 12:20 Room Air 05/12/23 12:10 Room Air 05/12/23 12:00 Room Air 05/12/23 11:54 Room Air 05/12/23 09:52 Room Air 05/12/23 08:00 05/12/23 08:00 Room Air 05/12/23 07:00 Room Air 05/11/23 22:00 05/12/23 02:45 Room Air 05/11/23 22:58 Room Air 05/11/23 20:26 Room Air 05/11/23 19:00 Room Air 05/11/23 15:00 Room Air Pain Intensity Right Lateral Ankle: Pain Intensity: 4 Transfer of Care Handoff Completed per policy Notes Mental Status: alert / awake / arousable and participated in evaluation Patient Amnestic to Procedure: Yes Nausea / Vomiting: adequately controlled Pain: adequately controlled Airway Patency, RR, SpO2: stable & adequate BP & HR: stable & adequate Hydration State: stable & adequate Anesthetic Complications: no major complications apparent and Pt Satisfied with anesthetic care
[2023-05-12] MEDS ORDERED: oxyCODONE HCL IR 5 MG TAB (IMMEDIATE RELEASE) PO PRN (13:38)
--- NOTE | 2023-05-12 16:37 | Operative Report ---
Post Operative Report Pre & Post Diagnosis Operation Date: 05/12/23 10:30 Pre-Op Diagnosis: Ulcer of right ankle. Post-Op Diagnosis: Ulcer of right ankle. I identified the patient and participated in the time-out.: Yes Procedure Operation Date: 05/12/23 10:30 Actual Procedures p Right Fibula Excision Non-Viable Bone with Wound Vac(Right) - Andrea Velasco DPM, MS Surgeon Andrea Velasco DPM, MS Filter Machine Operator None Estimated Blood Loss 0 Findings Consistent with Post-Op Diagnosis consistent with pre operative diagnosis Specimens Deep culture swap right ankle Bone distal fibula Right - Micro Bone distal fibula Right - Pathology Description of Procedure Description of Procedure History of present illness: Patient is a 72 year old female who is seen for treatment of right ankle wound and right fibula osteomyelitis. I reviewed wound debridement and partial excision of distal fibula followed by application of wound vac. All questions answered.Discussed procedure in detail and postoperative recovery. All potential risks, benefits, complications, alternatives, rehab, potential for incomplete relief of symptoms, need for further surgery, DVT, PE, , persistent pain, swelling, scarring, weakness, neurovascular, wound complications and potential for amputations were discussed with patient. Unwanted outcomes such as, but not limited to were reviewed including under correction, overcorrection, return of deformity, infection. All questions were answered. Patient has decided to proceed with procedure as indicated. Preoperative diagnosis:1.) Right ankle non healing wound 2.) Right fibula osteomyelitis Postoperative diagnosis: same Name of operation: 1.) Right ankle wound excision 2.) Right partial excision of fibula 3.) Application of wound vac right ankle Surgeon: Dr. Velasco Filter Machine Operator: None Anesthesia: Local with monitored anesthesia care Hemostasis: Pneumatic calf tourniquet Estimated blood loss: minimal Procedure in detail: Under mild sedation the patient was brought in the operating room placed on the operating table in supine position. A pneumatic calf tourniquet was then placed about the patient's right ankle. The foot and ankle were then prepped scrubbed and draped in usual aseptic manner. An Esmarch bandage was utilized to exsanguinate the patient's right foot and the pneumatic calf tourniquet was then inflated. Attention was then directed to a large ulcer on the lateral right ankle. Wound measures approximately 2.5 x 2.5 x 1 cm. Utilizing a sharp, sterile, #15 blade the wound bed is excised and voided of nonviable tissue. The base of the wound invades the lateral fibula.The distal fibula cortex was noted as soft and fragmented. At this time partial excision of the distal fibula was done utilizing ronguer and curette. A portion of the excised bone was sent to microbiology for culture and sensitivities. A portion was also sent to Pathology. A deep wound culture swap was also taken.1 L of lactated Ringer was then used to irrigate with low flow into the wounds.At this time negative pressure therapy was applied with wound vac to wound. The vac was placed on 125mmHg continuous. The wounds were dressed with dressing consisting of 4 x 4's Geo, Kerlix, ABD, and Joni. The pneumatic calf tourniquet was deflated and a prompt hyperemic response was noted to digits of the right foot. The Patient tolerated the procedure and anesthesia well. He was transferred to recovery room vital signs stable. Following a period of postoperative monitoring the patient will be readmitted to floor with the continuation of all preoperative orders. I attest to the content of the Intraoperative Record and any orders documented therein. Any exceptions are noted below.
--- NOTE | 2023-05-12 17:03 | Ultrasound Report ---
US arterial duplex LE BI CLINICAL HISTORY: B/L LE ulcers, eval for PAD TECHNIQUE: Real-time grayscale and color and spectral Doppler ultrasound imaging of the bilateral low er extremity arteries was performed. Measurements calculated based on NASCET criteria. COMPARISON: Comparison is made to lower extremity Doppler ultrasound 08/29/2014 FINDINGS: Ankle brachial indices were not assessed due to wound VAC on the right lower extremity and open wound on the left ankle. Triphasic waveforms are seen throughout except in the right posterior tibial artery and bilateral isra salis pedis arteries. No elevated velocities are seen. IMPRESSION: No hemodynamically significant stenosis. ACT 112: Negative or not required by law. Electronically signed by: Morales Hanna M.D. 05/12/2023 5:01 PM
[2023-05-12] MEDS: SODIUM CHLORIDE 0.9% 500 ML IV SCH (19:54)
[2023-05-12] MEDS: TERIFLUNOMIDE PO SCH (21:50)
[2023-05-12] MEDS: APIXABAN 5 MG TABLET PO SCH (21:54)
[2023-05-12] MEDS: ACETAMINOPHEN 325 MG TAB PO PRN (21:55)
[2023-05-12] MEDS: MELATONIN 3 MG TAB PO PRN (21:57)
[2023-05-13] MEDS: SODIUM CHLORIDE 0.9% 500 ML IV SCH ×3 (01:10→14:59)
[2023-05-13 06:07] LABS: Hematocrit (blood only) 29.5 % (37.0-47.0); Hemoglobin 9.4 g/dl (12.0-16.0); Mean Corpuscular Hemoglobin 29.6 pg (25.0-34.0); Mean Corpuscular Hgb Conc 31.9 g/dL (32.0-36.0); Mean Corpuscular Volume 92.8 fL (80.0-100.0); Mean Platelet Volume 10.4 fL (9.4-12.4); Platelet Count 238 K/uL (130-400); RDW Coefficient of Variation 16.9 % (11.5-14.5); RDW Standard Deviation 57.1 fL (36.4-46.3); Red Blood Count 3.18 M/uL (4.20-5.40)
[2023-05-13 06:20] LABS: Est GFR (African American) 93.6 ml/min; Est GFR (Non-African American) 80.8 ml/min; Magnesium 1.7 mg/dl (1.7-2.4); Potassium 4.1 mmol/L (3.5-5.1)
[2023-05-13] MEDS: CEFEPIME 2,000 MG in SYRINGE 0 ML IV SCH ×3 (06:45→22:07)
[2023-05-13] MEDS: tiZANidine HCL 4 MG TABLET PO SCH ×4 (08:39→21:54)
[2023-05-13] MEDS: METOPROLOL TARTRATE 25 MG TAB PO SCH ×2 (08:39→21:54)
[2023-05-13] MEDS: OXYBUTYNIN CHLORIDE XL 5 MG TABCR PO SCH (08:39)
[2023-05-13] MEDS: ESCITALOPRAM OXALATE 20 MG TAB PO SCH (08:40)
[2023-05-13] MEDS: APIXABAN 5 MG TABLET PO SCH ×2 (08:40→21:54)
[2023-05-13] MEDS: ATORVASTATIN 20 MG TAB PO SCH (08:40)
[2023-05-13] MEDS: PANTOprazole 40 MG TAB PO SCH (08:40)
[2023-05-13] MEDS: CHOLECALCIFEROL 1,000 UNITS 25 MCG TAB PO SCH (08:40)
[2023-05-13] MEDS: predniSONE 10 MG TABLET PO SCH (08:40)
[2023-05-13] MEDS: ASPIRIN 81 MG ECTAB PO SCH (08:40)
[2023-05-13] MEDS: MULTIVITAMIN TAB PO SCH (08:41)
[2023-05-13] MEDS: VANCOMYCIN HCL 1,000 MG in SODIUM CHLORIDE 0.9% 250 ML IV SCH ×2 (08:42→20:30)
--- NOTE | 2023-05-13 10:06 | Pharmacy Report ---
Pharmacy PK ABX Note - Date of Service May 13, 2023 - Assessment and Plan Assessment 72 year old F receiving Vancomycin and Cefepime for treatment of osteomyelitis. Patient scheduled for debridement on 05/12/23. * Day #6 of antimicrobial therapy. * H/o MS on chronic Prednisone and Aubagio. Presented to ER w/ chills. Chronic right foot ulcer wound. * Febrile at 38.8oC. Leukocytosis of 16.3k. Lactate 2.2, down to 1.6 following fluids. Procalcitonin elevated at 3.07. * Tmax on day 2 of therapy was 38.1 - leukocytosis has resolved. * Blood cultures currently NGTD Plan Vancomycin * Maintenance dose: 1000 mg IV every 12 hours * Random level today was 20.8 which is predicted to achieve target AUC/STEPHEN of 400-600 mg/L.hr * Random level to be ordered for 05/16/23 Pharmacy will continue to follow and will adjust dose/frequency as necessary. Thank you. Pharmacy has transitioned to AUC monitoring for vancomycin. AUC/STEPHEN is the preferred PK/PD target and is associated with decreased risk of nephrotoxicity compared to traditional trough targets.
--- NOTE | 2023-05-13 13:40 | Hospitalist Progress Note ---
Date of Service May 13, 2023 Assessment & Plan (1) Sepsis: (2) Ulcer of right ankle: (3) Osteomyelitis of ankle: Plan: 72-year-old female with PMH CAD, paroxysmal atrial fibrillation, history of PE/DVT, s/p IVC filter, anticoagulated on Eliquis, chronic anemia, HTN, HLD, chronic pain, history of left breast cancer s/p surgery, radiation, neurogenic bladder that self catheterizes presented to ER with c/o chills. Chronic Right ulcer wound In ER T: 37.6 C, P: 88, RR: 16, initial BP 101/60 dropped to 82/56. Was given 1500 mL NSS with repeat BP of 129/85 WBC: 16, lactate: 2.2, procalcitonin 3. UA unremarkable. Negative SARS-CoV-2 PCR CXR: No acute abnormalities and in particular no radiographic evidence of pneumonia. Right foot x-ray: No radiographic evidence of osteomyelitis. MRI right ankle show findings compatible with cellulitis with underlying osteomyelitis. MRI Left leg with findings as below 1. Moderate subcutaneous edema suggestive of cellulitis, lymphedema or venous stasis. 2. No fluid collection to suggest abscess. 3. Normal bone marrow signal. Bilateral lower extremity arterial duplex with no hemodynamically significant stenosis Plan Sepsis due to Right ankle cellulitis and osteomyelitis- sepsis resolved Blood cultures negative so far Seen by podiatry and status post Right Fibula Excision Non-Viable Bone with Wound Vac(Right) by Dr. Velasco 05/12/2023 Continue empiric antibiotics Await final and OR cultures and pathology results for final antibiotic recommendation Wound VAC management per podiatry ID eval depending on the culture results (4) History of pulmonary embolism: Plan: History of PE/DVT. History of IVC filter. Chronically anticoagulated on Eliquis and resumed after surgery. (5) Paroxysmal atrial fibrillation: Plan: Anticoagulated on Eliquis. Current sinus rhythm with intermittent asymptomatic PACs in telemetry. Electrolytes stable. Metoprolol dose uptitrated. Eliquis resumed. Continue to monitor on telemetry. Repeat echo if persist. Cardiology consult if needed. (6) Multiple sclerosis: Plan: On chronic prednisone, Continue Aubagio, prednisone (7) CAD (coronary artery disease): Plan: History of nonobstructive CAD. Continue aspirin, statin (8) Chronic anemia: Plan: Hemoglobin stable more than 9. Recheck intermittently. (9) HX: breast cancer: Plan: History of left breast cancer s/p surgery, radiation DVT Prophylaxis-Eliquis Dispo- Continue current level of care. Pending culture and pathology results for final antibiotic determination Updated daughter over the phone Admission and Anticipated Discharge Date Admission Date: May 08, 2023 Subjective Patient was seen and examined at bedside. She feels good. Pain is controlled. Appetite is good. Voiding without issues. No fever, chills, chest pain or shortness of breath or nausea or vomiting. Seen in her daughter had multiple questions regarding the procedure and the recovery. Review of Systems Review of Systems: All systems reviewed & are unremarkable except as noted in Subjective Physical Exam Physical Exam: General: Lying comfortably in bed, not in distress, on room air HEENT: EOMI, BENJAMÍN, MMM Chest: Clear breath sounds bilaterally, no wheezes or crackles CVS: Regular rate and rhythm, normal heart sounds, no murmur Abdomen: Soft, non tender, not distended, normal bowel sounds Neuro: Awake, alert, oriented, conversing well, non focal Extremities: Right ankle wound with wound VAC in place Psych: Anxious, appreciative Results & Data Results & Data Vital Signs (Past 12 Hours) Vital Signs Temp Pulse Pulse Pulse Resp BP Pulse Ox 05/13/23 12:08 36.4 C L 75 18 144/91 H 93 05/13/23 08:00 67 05/13/23 07:57 36.4 C L 66 18 133/81 92 05/13/23 03:00 36.6 C 70 18 121/68 96 O2 Del Method 05/13/23 12:08 Room Air 05/13/23 08:00 05/13/23 07:57 Room Air 05/13/23 03:00 Room Air Laboratory Results Short CBC 05/13/23 Range/Units 05:36 WBC 5.60 (4.8-10.8) K/ul Hgb 9.4 L (12.0-16.0) g/dl Hct 29.5 L (37.0-47.0) % Plt Count 238 (130-400) K/uL BMP 05/13/23 05:36 Sodium 139 Potassium 4.1 Chloride 109 H Carbon Dioxide 25 BUN 18 Creatinine 0.75 Glucose 97 Calcium 8.0 L Medications Administered Current Inpatient Medications Acetaminophen (Acetaminophen 325 Mg Tab) 650 mg PO Q4H PRN PRN Reason: Pain or Fever Stop: 06/07/23 22:12 Last Admin: 05/12/23 21:55 Dose: 650 mg Apixaban (Apixaban 5 Mg Tablet) 5 mg PO BID [facility] Stop: 06/07/23 22:12 Last Admin: 05/13/23 08:40 Dose: 5 mg Aspirin (Aspirin 81 Mg Ectab) 81 mg PO DAILY [facility] Stop: 06/08/23 08:59 Last Admin: 05/13/23 08:40 Dose: 81 mg Atorvastatin Calcium (Atorvastatin 20 Mg Tab) 20 mg PO QAM [facility] Stop: 06/08/23 08:59 Last Admin: 05/13/23 08:40 Dose: 20 mg Escitalopram Oxalate (Escitalopram Oxalate 20 Mg Tab) 20 mg PO QAM [facility] Stop: 06/08/23 08:59 Last Admin: 05/13/23 08:40 Dose: 20 mg Cefepime HCl 2,000 mg/ Syringe 20 mls @ 5 mls/min IV Q8H [facility]; Protocol Stop: 06/21/23 13:59 Last Admin: 05/13/23 06:45 Dose: 5 mls/min Vancomycin HCl 1,000 mg/ (Sodium Chloride) 270 mls @ 200 mls/hr IV Q12H [facility] Stop: 06/22/23 08:59 Last Infusion: 05/13/23 10:18 Dose: Infused Sodium Chloride (Nss) 500 mls @ 80 mls/hr IV .Q6H15M [facility] Stop: 05/13/23 18:29 Last Admin: 05/13/23 08:39 Dose: 80 mls/hr Melatonin (Melatonin 3 Mg Tab) 3 mg PO HS PRN PRN Reason: Insomnia Stop: 06/07/23 22:12 Last Admin: 05/12/23 21:57 Dose: 3 mg Metoprolol Tartrate (Metoprolol Tartrate 25 Mg Tab) 25 mg PO BID [facility] Stop: 06/11/23 20:59 Last Admin: 05/13/23 08:39 Dose: 25 mg Miscellaneous Information (Vancomycin Consult Active) 1 each N/A UD PRN PRN Reason: Consult Stop: 06/07/23 22:12 Multivitamins (Multivitamin Tab) 1 tab PO DAILY [facility] Stop: 06/08/23 08:59 Last Admin: 05/13/23 08:41 Dose: 1 tab Teriflunomide~Non- Formulary Patient's Own Med 1 each PO HS [facility] Stop: 06/08/23 20:59 Last Admin: 05/12/23 21:50 Dose: 14 mg Ondansetron HCl (Ondansetron Inj 2 Mg/Ml 2 Ml Vial) 4 mg IV Q6H PRN PRN Reason: Nausea Stop: 06/07/23 22:12 Oxybutynin Chloride (Oxybutynin Chloride Xl 5 Mg Tabcr) 15 mg PO [facility] Stop: 06/08/23 08:59 Last Admin: 05/13/23 08:39 Dose: 15 mg Oxycodone HCl (Oxycodone Hcl Ir 5 Mg Tab (Immediate Release)) 5 mg PO Q6H PRN PRN Reason: Pain Stop: 05/26/23 13:37 Last Admin: 05/12/23 14:08 Dose: 5 mg Pantoprazole Sodium (Pantoprazole 40 Mg Tab) 40 mg PO [facility]; Protocol Stop: 06/08/23 08:59 Last Admin: 05/13/23 08:40 Dose: 40 mg Polyethylene Glycol (Polyethylene (Miralax) 17 Gm Pack) 17 gm PO DAILY PRN PRN Reason: Constipation Stop: 06/07/23 22:12 Prednisone (Prednisone 10 Mg Tablet) 10 mg PO [facility] Stop: 06/08/23 08:59 Last Admin: 05/13/23 08:40 Dose: 10 mg Tizanidine HCl (Tizanidine Hcl 4 Mg Tablet) 4 mg PO QID [facility] Stop: 06/07/23 22:59 Last Admin: 05/13/23 08:39 Dose: 4 mg Vitamin D (Cholecalciferol 1,000 Units 25 Mcg Tab) 1,000 units PO [facility] Stop: 06/08/23 08:59 Last Admin: 05/13/23 08:40 Dose: 1,000 units
[2023-05-13] MEDS: ACETAMINOPHEN 325 MG TAB PO PRN ×2 (15:34→23:36)
[2023-05-13] MEDS: TERIFLUNOMIDE PO SCH (21:55)
--- NOTE | 2023-05-13 22:14 | Orthopedic Progress Note ---
Date of Service May 13, 2023 Assessment & Plan (1) Ulcer of right ankle: Plan: Patient seen, evaluated, and treated. Patient is day #1 status post right ankle surgery DOS: 05/13/23 Awaiting right fibula bone culture and sensitivities results. Reviewed MRI showing osteomyelitis of Right lateral fibula. Thank you for allowing me to participate in the care of this Patient. (2) Chronic ulcer of right foot: (3) Cellulitis of left lower leg: Admission and Anticipated Discharge Date Admission Date: May 08, 2023 Subjective Patient was seen and examined at bedside. Patient is day #1 status post right ankle surgery DOS: 05/13/23. Patient has no complaints. Review of Systems Review of Systems: All systems reviewed & are unremarkable except as noted in Subjective Physical Exam Constitutional: + frail appearing, cooperative and comfortable Neck: normal visual inspection and trachea midline Skin: + ulcer (Right lateral ankle full thickness) and + wound (Left anterior leg ) Neurologic: moves all extremities (Absent epicritic sensation to legs and feet) Psychiatric: Orientation: alert and oriented x 3 Results & Data Vital Signs (Past 12 Hours) Vital Signs Temp Pulse Pulse Resp BP Pulse Ox O2 Del Method 05/13/23 19:00 36.5 C 75 18 149/85 H 75 L Room Air 05/13/23 15:55 36.4 C L 76 19 143/80 H 97 Room Air 05/13/23 12:08 36.4 C L 75 18 144/91 H 93 Room Air (2) Chronic ulcer of right foot Non-pressure ulcer stage: unspecified non-pressure ulcer stage Qualified Code(s): L97.519 - Non-pressure chronic ulcer of other part of right foot with unspecified severity
[2023-05-13] MEDS: MELATONIN 3 MG TAB PO PRN (22:55)
[2023-05-14] MEDS: CEFEPIME 2,000 MG in SYRINGE 0 ML IV SCH ×3 (06:33→23:18)
[2023-05-14] MEDS: VANCOMYCIN HCL 1,000 MG in SODIUM CHLORIDE 0.9% 250 ML IV SCH ×2 (08:09→21:43)
[2023-05-14] MEDS: tiZANidine HCL 4 MG TABLET PO SCH ×4 (08:10→21:04)
[2023-05-14] MEDS: predniSONE 10 MG TABLET PO SCH (08:10)
[2023-05-14] MEDS: PANTOprazole 40 MG TAB PO SCH (08:10)
[2023-05-14] MEDS: METOPROLOL TARTRATE 25 MG TAB PO SCH ×2 (08:10→21:04)
[2023-05-14] MEDS: APIXABAN 5 MG TABLET PO SCH ×2 (08:10→21:04)
[2023-05-14] MEDS: MULTIVITAMIN TAB PO SCH (08:10)
[2023-05-14] MEDS: ASPIRIN 81 MG ECTAB PO SCH (08:10)
[2023-05-14] MEDS: OXYBUTYNIN CHLORIDE XL 5 MG TABCR PO SCH (08:11)
[2023-05-14] MEDS: CHOLECALCIFEROL 1,000 UNITS 25 MCG TAB PO SCH (08:11)
[2023-05-14] MEDS: ESCITALOPRAM OXALATE 20 MG TAB PO SCH (08:11)
[2023-05-14] MEDS: ATORVASTATIN 20 MG TAB PO SCH (08:11)
--- NOTE | 2023-05-14 12:05 | Hospitalist Progress Note ---
Date of Service May 14, 2023 Assessment & Plan (1) Sepsis: (2) Ulcer of right ankle: (3) Osteomyelitis of ankle: Plan: 72-year-old female with PMH CAD, paroxysmal atrial fibrillation, history of PE/DVT, s/p IVC filter, anticoagulated on Eliquis, chronic anemia, HTN, HLD, chronic pain, history of left breast cancer s/p surgery, radiation, neurogenic bladder that self catheterizes presented to ER with c/o chills. Chronic Right ulcer wound In ER T: 37.6 C, P: 88, RR: 16, initial BP 101/60 dropped to 82/56. Was given 1500 mL NSS with repeat BP of 129/85 WBC: 16, lactate: 2.2, procalcitonin 3. UA unremarkable. Negative SARS-CoV-2 PCR CXR: No acute abnormalities and in particular no radiographic evidence of pneumonia. Right foot x-ray: No radiographic evidence of osteomyelitis. MRI right ankle show findings compatible with cellulitis with underlying osteomyelitis. MRI Left leg with findings as below 1. Moderate subcutaneous edema suggestive of cellulitis, lymphedema or venous stasis. 2. No fluid collection to suggest abscess. 3. Normal bone marrow signal. Bilateral lower extremity arterial duplex with no hemodynamically significant stenosis OR clx from rt ankle 05/12 with pinpoint growth, reincubating- follow clx results for final ABx management Plan Sepsis due to Right ankle cellulitis and osteomyelitis- sepsis resolved Blood cultures negative so far Seen by podiatry and status post Right Fibula Excision Non-Viable Bone with Wound Vac(Right) by Dr. Velasco 05/12/2023 OR clx with pinpoint growth Continue empiric antibiotics Vanc/cefepime pending final clx results Wound VAC management per podiatry ID eval depending on the culture results (4) History of pulmonary embolism: Plan: History of PE/DVT. History of IVC filter. Chronically anticoagulated on Eliquis and resumed after surgery. (5) Paroxysmal atrial fibrillation: Plan: On lopressor. Anticoagulated on Eliquis. PATs- continues to have intermittent self limiting bursts of PATs on tele. Electrolytes stable. Will get echo. Continue increased dose of metoprolol and continue tele. (6) Multiple sclerosis: Plan: On chronic prednisone, Continue Aubagio, prednisone (7) CAD (coronary artery disease): Plan: History of nonobstructive CAD. Continue aspirin, statin (8) Chronic anemia: Plan: Hemoglobin stable more than 9. Recheck intermittently. (9) HX: breast cancer: Plan: History of left breast cancer s/p surgery, radiation DVT Prophylaxis-Eliquis Dispo- Continue current level of care. Pending culture and pathology results for final antibiotic determination Updated daughter at bedside Admission and Anticipated Discharge Date Admission Date: May 08, 2023 Subjective Patient was seen and examined at bedside in presence of her daughter. She feels fine. She does acknowledge intermittent palpitations. Normal appetite. No fe asher, chills, chest pain or shortness, nausea or vomiting. Pain is controlled. She is waiting to see physical therapy today Review of Systems Review of Systems: All systems reviewed & are unremarkable except as noted in Subjective Physical Exam Physical Exam: General: Sitting available in chair, not in distress, on room air HEENT: EOMI, BENJAMÍN, MMM Chest: Clear breath sounds bilaterally, no wheezes or crackles CVS: Regular rate and rhythm, normal heart sounds, no murmur Abdomen: Soft, non tender, not distended, normal bowel sounds Neuro: Awake, alert, oriented, conversing well, non focal Extremities: Right ankle wound with wound VAC in place Psych: Anxious, appreciative Results & Data Results & Data Vital Signs (Past 12 Hours) Vital Signs Temp Pulse Pulse Pulse Resp BP Pulse Ox 05/14/23 07:30 65 05/14/23 08:06 36.6 C 71 18 160/84 H 95 05/14/23 04:42 36.4 C L 64 20 167/88 H 96 O2 Del Method 05/14/23 07:30 05/14/23 08:06 Room Air 05/14/23 04:42 Room Air Medications Administered Current Inpatient Medications Acetaminophen (Acetaminophen 325 Mg Tab) 650 mg PO Q4H PRN PRN Reason: Pain or Fever Stop: 06/07/23 22:12 Last Admin: 05/13/23 23:36 Dose: 650 mg Apixaban (Apixaban 5 Mg Tablet) 5 mg PO BID [facility] Stop: 06/07/23 22:12 Last Admin: 05/14/23 08:10 Dose: 5 mg Aspirin (Aspirin 81 Mg Ectab) 81 mg PO DAILY [facility] Stop: 06/08/23 08:59 Last Admin: 05/14/23 08:10 Dose: 81 mg Atorvastatin Calcium (Atorvastatin 20 Mg Tab) 20 mg PO QAM [facility] Stop: 06/08/23 08:59 Last Admin: 05/14/23 08:11 Dose: 20 mg Escitalopram Oxalate (Escitalopram Oxalate 20 Mg Tab) 20 mg PO QAM [facility] Stop: 06/08/23 08:59 Last Admin: 05/14/23 08:11 Dose: 20 mg Cefepime HCl 2,000 mg/ Syringe 20 mls @ 5 mls/min IV Q8H [facility]; Protocol Stop: 06/21/23 13:59 Last Admin: 05/14/23 06:33 Dose: 5 mls/min Vancomycin HCl 1,000 mg/ (Sodium Chloride) 270 mls @ 200 mls/hr IV Q12H [facility] Stop: 06/22/23 08:59 Last Infusion: 05/14/23 09:56 Dose: Infused Melatonin (Melatonin 3 Mg Tab) 3 mg PO HS PRN PRN Reason: Insomnia Stop: 06/07/23 22:12 Last Admin: 05/13/23 22:55 Dose: 3 mg Metoprolol Tartrate (Metoprolol Tartrate 25 Mg Tab) 25 mg PO BID [facility] Stop: 06/11/23 20:59 Last Admin: 05/14/23 08:10 Dose: 25 mg Miscellaneous Information (Vancomycin Consult Active) 1 each N/A UD PRN PRN Reason: Consult Stop: 06/07/23 22:12 Multivitamins (Multivitamin Tab) 1 tab PO DAILY [facility] Stop: 06/08/23 08:59 Last Admin: 05/14/23 08:10 Dose: 1 tab Teriflunomide~Non- Formulary Patient's Own Med 1 each PO HS [facility] Stop: 06/08/23 20:59 Last Admin: 05/13/23 21:55 Dose: 14 mg Ondansetron HCl (Ondansetron Inj 2 Mg/Ml 2 Ml Vial) 4 mg IV Q6H PRN PRN Reason: Nausea Stop: 06/07/23 22:12 Oxybutynin Chloride (Oxybutynin Chloride Xl 5 Mg Tabcr) [facility] Stop: 06/08/23 08:59 Last Admin: 05/14/23 08:11 Dose: 15 mg Oxycodone HCl (Oxycodone Hcl Ir 5 Mg Tab (Immediate Release)) 5 mg PO Q6H PRN PRN Reason: Pain Stop: 05/26/23 13:37 Last Admin: 05/12/23 14:08 Dose: 5 mg Pantoprazole Sodium (Pantoprazole 40 Mg Tab) 40 mg PO [facility]; Protocol Stop: 06/08/23 08:59 Last Admin: 05/14/23 08:10 Dose: 40 mg Polyethylene Glycol (Polyethylene (Miralax) 17 Gm Pack) 17 gm PO DAILY PRN PRN Reason: Constipation Stop: 06/07/23 22:12 Prednisone (Prednisone 10 Mg Tablet) 10 mg PO [facility] Stop: 06/08/23 08:59 Last Admin: 05/14/23 08:10 Dose: 10 mg Tizanidine HCl (Tizanidine Hcl 4 Mg Tablet) 4 mg PO QID [facility] Stop: 06/07/23 22:59 Last Admin: 05/14/23 08:10 Dose: 4 mg Vitamin D (Cholecalciferol 1,000 Units 25 Mcg Tab) 1,000 units PO [facility] Stop: 06/08/23 08:59 Last Admin: 05/14/23 08:11 Dose: 1,000 units
[2023-05-14] MEDS: TERIFLUNOMIDE PO SCH (21:05)
[2023-05-14] MEDS: ACETAMINOPHEN 325 MG TAB PO PRN (21:09)
[2023-05-15 06:17] LABS: Hematocrit (blood only) 30.4 % (37.0-47.0); Hemoglobin 9.7 g/dl (12.0-16.0); Mean Corpuscular Hemoglobin 29.2 pg (25.0-34.0); Mean Corpuscular Hgb Conc 31.9 g/dL (32.0-36.0); Mean Corpuscular Volume 91.6 fL (80.0-100.0); Mean Platelet Volume 10.8 fL (9.4-12.4); Platelet Count 272 K/uL (130-400); RDW Standard Deviation 57.3 fL (36.4-46.3); Red Blood Count 3.32 M/uL (4.20-5.40); White Blood Count 4.53 K/ul (4.8-10.8)
[2023-05-15] MEDS: CEFEPIME 2,000 MG in SYRINGE 0 ML IV SCH ×3 (06:21→21:11)
[2023-05-15 06:39] LABS: C Reactive Protein 0.5 mg/dl (0-0.5); Calcium 9.1 mg/dl (8.6-10.3); Creatinine Clr Calc Pharmacy 68.6 ml/min; Est GFR (African American) 96.7 ml/min; Est GFR (Non-African American) 83.4 ml/min; Magnesium 1.7 mg/dl (1.7-2.4); Potassium 4.1 mmol/L (3.5-5.1)
[2023-05-15] MEDS: METOPROLOL TARTRATE 25 MG TAB PO SCH ×2 (08:26→21:11)
[2023-05-15] MEDS: ASPIRIN 81 MG ECTAB PO SCH (08:27)
[2023-05-15] MEDS: ATORVASTATIN 20 MG TAB PO SCH (08:27)
[2023-05-15] MEDS: ESCITALOPRAM OXALATE 20 MG TAB PO SCH (08:27)
[2023-05-15] MEDS: MULTIVITAMIN TAB PO SCH (08:27)
[2023-05-15] MEDS: tiZANidine HCL 4 MG TABLET PO SCH ×4 (08:27→21:11)
[2023-05-15] MEDS: PANTOprazole 40 MG TAB PO SCH (08:28)
[2023-05-15] MEDS: predniSONE 10 MG TABLET PO SCH (08:28)
[2023-05-15] MEDS: OXYBUTYNIN CHLORIDE XL 5 MG TABCR PO SCH (08:28)
[2023-05-15] MEDS: CHOLECALCIFEROL 1,000 UNITS 25 MCG TAB PO SCH (08:28)
[2023-05-15] MEDS: APIXABAN 5 MG TABLET PO SCH ×2 (08:29→21:11)
[2023-05-15] MEDS: VANCOMYCIN HCL 1,000 MG in SODIUM CHLORIDE 0.9% 250 ML IV SCH ×2 (08:36→21:11)
--- NOTE | 2023-05-15 10:24 | Hospitalist Progress Note ---
Date of Service May 15, 2023 Assessment & Plan (1) Sepsis: (2) Ulcer of right ankle: (3) Osteomyelitis of ankle: Plan: 72-year-old female with PMH CAD, paroxysmal atrial fibrillation, history of PE/DVT, s/p IVC filter, anticoagulated on Eliquis, chronic anemia, HTN, HLD, chronic pain, history of left breast cancer s/p surgery, radiation, neurogenic bladder that self catheterizes presented to ER with c/o chills. Chronic Right ulcer wound In ER T: 37.6 C, P: 88, RR: 16, initial BP 101/60 dropped to 82/56. Was given 1500 mL NSS with repeat BP of 129/85 WBC: 16, lactate: 2.2, procalcitonin 3. UA unremarkable. Negative SARS-CoV-2 PCR CXR: No acute abnormalities and in particular no radiographic evidence of pneumonia. Right foot x-ray: No radiographic evidence of osteomyelitis. MRI right ankle show findings compatible with cellulitis with underlying osteomyelitis. MRI Left leg with findings as below 1. Moderate subcutaneous edema suggestive of cellulitis, lymphedema or venous stasis. 2. No fluid collection to suggest abscess. 3. Normal bone marrow signal. Bilateral lower extremity arterial duplex with no hemodynamically significant stenosis OR clx from rt ankle 05/12 negative so far; pathology still pending Plan Sepsis due to Right ankle cellulitis and osteomyelitis- sepsis resolved Blood cultures negative so far Seen by podiatry and status post Right Fibula Excision Non-Viable Bone with Wound Vac(Right) by Dr. Velasco 05/12/2023 OR clx negative so far Continue empiric antibiotics Vanc/cefepime Wound VAC management per podiatry ID consulted for further antibiotic management (4) History of pulmonary embolism: Plan: History of PE/DVT. History of IVC filter. Chronically anticoagulated on Eliquis and resumed after surgery. (5) Paroxysmal atrial fibrillation: Plan: On lopressor. Anticoagulated on Eliquis. PATs- Continue increased dose of metoprolol and continue tele. Echo unremarkable (6) Multiple sclerosis: Plan: On chronic prednisone, Continue Aubagio, prednisone (7) CAD (coronary artery disease): Plan: History of nonobstructive CAD. Continue aspirin, statin (8) Chronic anemia: Plan: Hemoglobin stable more than 9. Recheck intermittently. (9) HX: breast cancer: Plan: History of left breast cancer s/p surgery, radiation DVT Prophylaxis-Eliquis Dispo- Continue current level of care. Pending final culture and pathology results for final antibiotic determination, ID evaluation pending Admission and Anticipated Discharge Date Admission Date: May 08, 2023 Subjective Patient was seen and examined at bedside. She is upset by the events from last night and was very emotional. She also gets emotional every year on Father's day. No fever, chills, chest pain or shortness of breath or vomiting. Review of Systems Review of Systems: All systems reviewed & are unremarkable except as noted in Subjective Physical Exam Physical Exam: General: Sitting in chair, not in distress, on room air HEENT: EOMI, BENJAMÍN, MMM Chest: Clear breath sounds bilaterally, no wheezes or crackles CVS: Regular rate and rhythm, normal heart sounds, no murmur Abdomen: Soft, non tender, not distended, normal bowel sounds Neuro: Awake, alert, oriented, conversing well, non focal Extremities: Right ankle wound with wound VAC in place Psych: Emotional, appreciative Results & Data Results & Data Vital Signs (Past 12 Hours) Vital Signs Temp Pulse Pulse Pulse Resp BP Pulse Ox 05/15/23 08:05 36.7 C 70 18 111/63 94 05/15/23 07:22 76 05/15/23 03:00 36.5 C 77 19 100/64 95 05/15/23 00:00 73 05/14/23 23:00 36.5 C 69 17 101/62 95 O2 Del Method 05/15/23 08:05 Room Air 05/15/23 07:22 05/15/23 03:00 Room Air 05/15/23 00:00 05/14/23 23:00 Room Air Laboratory Results Short CBC 05/15/23 Range/Units 05:29 WBC 4.53 L (4.8-10.8) K/ul Hgb 9.7 L (12.0-16.0) g/dl Hct 30.4 L (37.0-47.0) % Plt Count 272 (130-400) K/uL BMP 05/15/23 05:29 Sodium 140 Potassium 4.1 Chloride 109 H Carbon Dioxide 26 BUN 19 Creatinine 0.73 Glucose 81 Calcium 9.1 Medications Administered Current Inpatient Medications Acetaminophen (Acetaminophen 325 Mg Tab) 650 mg PO Q4H PRN PRN Reason: Pain or Fever Stop: 06/07/23 22:12 Last Admin: 05/14/23 21:09 Dose: 650 mg Apixaban (Apixaban 5 Mg Tablet) 5 mg PO BID [facility] Stop: 06/07/23 22:12 Last Admin: 05/15/23 08:29 Dose: 5 mg Aspirin (Aspirin 81 Mg Ectab) 81 mg PO DAILY [facility] Stop: 06/08/23 08:59 Last Admin: 05/15/23 08:27 Dose: 81 mg Atorvastatin Calcium (Atorvastatin 20 Mg Tab) 20 mg PO QAM [facility] Stop: 06/08/23 08:59 Last Admin: 05/15/23 08:27 Dose: 20 mg Escitalopram Oxalate (Escitalopram Oxalate 20 Mg Tab) 20 mg PO QAM [facility] Stop: 06/08/23 08:59 Last Admin: 05/15/23 08:27 Dose: 20 mg Cefepime HCl 2,000 mg/ Syringe 20 mls @ 5 mls/min IV Q8H [facility]; Protocol Stop: 06/21/23 13:59 Last Admin: 05/15/23 06:21 Dose: 5 mls/min Vancomycin HCl 1,000 mg/ (Sodium Chloride) 270 mls @ 200 mls/hr IV Q12H [facility] Stop: 06/22/23 08:59 Last Infusion: 05/15/23 10:15 Dose: Infused Melatonin (Melatonin 3 Mg Tab) 3 mg PO HS PRN PRN Reason: Insomnia Stop: 06/07/23 22:12 Last Admin: 05/13/23 22:55 Dose: 3 mg Metoprolol Tartrate (Metoprolol Tartrate 25 Mg Tab) 25 mg PO BID [facility] Stop: 06/11/23 20:59 Last Admin: 05/15/23 08:26 Dose: 25 mg Miscellaneous Information (Vancomycin Consult Active) 1 each N/A UD PRN PRN Reason: Consult Stop: 06/07/23 22:12 Multivitamins (Multivitamin Tab) 1 tab PO DAILY [facility] Stop: 06/08/23 08:59 Last Admin: 05/15/23 08:27 Dose: 1 tab Teriflunomide~Non- Formulary Patient's Own Med 1 each PO HS [facility] Stop: 06/08/23 20:59 Last Admin: 05/14/23 21:05 Dose: 14 mg Ondansetron HCl (Ondansetron Inj 2 Mg/Ml 2 Ml Vial) 4 mg IV Q6H PRN PRN Reason: Nausea Stop: 06/07/23 22:12 Oxybutynin Chloride (Oxybutynin Chloride Xl 5 Mg Tabcr) 15 mg PO [facility] Stop: 06/08/23 08:59 Last Admin: 05/15/23 08:28 Dose: 15 mg Oxycodone HCl (Oxycodone Hcl Ir 5 Mg Tab (Immediate Release)) 5 mg PO Q6H PRN PRN Reason: Pain Stop: 05/26/23 13:37 Last Admin: 05/12/23 14:08 Dose: 5 mg Pantoprazole Sodium (Pantoprazole 40 Mg Tab) 40 mg PO [facility]; Protocol Stop: 06/08/23 08:59 Last Admin: 05/15/23 08:28 Dose: 40 mg Polyethylene Glycol (Polyethylene (Miralax) 17 Gm Pack) 17 gm PO DAILY PRN PRN Reason: Constipation Stop: 06/07/23 22:12 Prednisone (Prednisone 10 Mg Tablet) 10 mg PO [facility] Stop: 06/08/23 08:59 Last Admin: 05/15/23 08:28 Dose: 10 mg Tizanidine HCl (Tizanidine Hcl 4 Mg Tablet) 4 mg PO QID [facility] Stop: 06/07/23 22:59 Last Admin: 05/15/23 08:27 Dose: 4 mg Vitamin D (Cholecalciferol 1,000 Units 25 Mcg Tab) 1,000 units PO [facility] Stop: 06/08/23 08:59 Last Admin: 05/15/23 08:28 Dose: 1,000 units
--- NOTE | 2023-05-15 14:39 | Orthopedic Progress Note ---
Date of Service May 15, 2023 Assessment & Plan (1) Ulcer of right ankle: Plan: Patient seen, evaluated, and treated. Reviewed Preliminary Wound Culture results. Patient is day #3 status post right ankle surgery DOS: 05/13/23 Wound vac negative pressure therapy changed 125mmHg continuous. Thank you for allowing me to participate in the care of this Patient. (2) Chronic ulcer of right foot: (3) Cellulitis of left lower leg: Admission and Anticipated Discharge Date Admission Date: May 08, 2023 Subjective Patient was seen and examined at bedside. She is upset by the events from last night and was very emotional. She also gets emotional every year on Father's day. No fever, chills, chest pain or shortness of breath or vomiting. Review of Systems Review of Systems: All systems reviewed & are unremarkable except as noted in Subjective Physical Exam Constitutional: + frail appearing, cooperative and comfortable Neck: normal visual inspection and trachea midline Skin: + ulcer (Right lateral ankle full thickness) and + wound (Left anterior leg ) Neurologic: moves all extremities (Absent epicritic sensation to legs and feet) Psychiatric: Orientation: alert and oriented x 3 Results & Data Vital Signs (Past 12 Hours) Vital Signs Temp Pulse Pulse Pulse Resp BP Pulse Ox 05/15/23 12:02 36.4 C L 73 18 93/59 L 92 05/15/23 08:05 36.7 C 70 18 111/63 94 05/15/23 07:22 76 05/15/23 03:00 36.5 C 77 19 100/64 95 O2 Del Method 05/15/23 12:02 Room Air 05/15/23 08:05 Room Air 05/15/23 07:22 05/15/23 03:00 Room Air Diagnostic Findings [address] [place] [address] / Director: Shane De La Fuente M.D. Clinical Laboratory Report Name: NADEEN ANNE Acct: [id number] Status: ADM IN : 1950 [facility] [place] Date: 05/08/23 Age: 72 Sex: F Dis Date: Loc: [address]/Bed: [facility] Spec: [id number] Collected: 05/12/23 Received: 05/12/23-[address]: Andrea Velasco, DPM, MS Copy To: Solange Wall DO Source: Leg OV Order: Ordered: Aer/Silvina Cult/Sm Comments: Comment Culture set #2 Right fibula. Procedure Result Verified Site Gram Stain Final 05/12/23 Gram Stain Result Rare WBCs Seen No Organisms Seen Aero/Silvina Cult Preliminary 05/15/23 Organism 1 Gram positive cocci Quantity Rare Sens Sensitivities to Follow No Anaerobes Isolated No Anaerobes Isolated Name: NADEEN ANNE : 1950 PAGE 1 Printed: 05/15/23 0117 END OF REPORT (2) Chronic ulcer of right foot Non-pressure ulcer stage: unspecified non-pressure ulcer stage Qualified Code(s): L97.519 - Non-pressure chronic ulcer of other part of right foot with unspecified severity
[2023-05-15] MEDS: TERIFLUNOMIDE PO SCH (21:15)
[2023-05-15] MEDS: MELATONIN 3 MG TAB PO PRN (21:53)
[2023-05-16] MEDS: CEFEPIME 2,000 MG in SYRINGE 0 ML IV SCH ×2 (05:49→13:37)
[2023-05-16 06:29] LABS: Creatinine Clr Calc Pharmacy 63.8 ml/min; Est GFR (African American) 87.9 ml/min; Est GFR (Non-African American) 75.8 ml/min
[2023-05-16] MEDS: ATORVASTATIN 20 MG TAB PO SCH (08:32)
[2023-05-16] MEDS: ESCITALOPRAM OXALATE 20 MG TAB PO SCH (08:32)
[2023-05-16] MEDS: APIXABAN 5 MG TABLET PO SCH ×2 (08:32→19:36)
[2023-05-16] MEDS: OXYBUTYNIN CHLORIDE XL 5 MG TABCR PO SCH (08:32)
[2023-05-16] MEDS: tiZANidine HCL 4 MG TABLET PO SCH ×4 (08:32→19:36)
[2023-05-16] MEDS: METOPROLOL TARTRATE 25 MG TAB PO SCH ×2 (08:32→19:36)
[2023-05-16] MEDS: predniSONE 10 MG TABLET PO SCH (08:33)
[2023-05-16] MEDS: ASPIRIN 81 MG ECTAB PO SCH (08:33)
[2023-05-16] MEDS: CHOLECALCIFEROL 1,000 UNITS 25 MCG TAB PO SCH (08:33)
[2023-05-16] MEDS: MULTIVITAMIN TAB PO SCH (08:33)
[2023-05-16] MEDS ORDERED: VANCOMYCIN HCL 750 MG in SODIUM CHLORIDE 0.9% 250 ML IV SCH (09:00)
--- NOTE | 2023-05-16 09:33 | Hospitalist Progress Note ---
Date of Service May 16, 2023 Assessment & Plan (1) Sepsis: (2) Ulcer of right ankle: (3) Osteomyelitis of ankle: Plan: 72-year-old female with PMH CAD, paroxysmal atrial fibrillation, history of PE/DVT, s/p IVC filter, anticoagulated on Eliquis, chronic anemia, HTN, HLD, chronic pain, history of left breast cancer s/p surgery, radiation, neurogenic bladder that self catheterizes presented to ER with c/o chills. Chronic Right ulcer wound In ER T: 37.6 C, P: 88, RR: 16, initial BP 101/60 dropped to 82/56. Was given 1500 mL NSS with repeat BP of 129/85 WBC: 16, lactate: 2.2, procalcitonin 3. UA unremarkable. Negative SARS-CoV-2 PCR CXR: No acute abnormalities and in particular no radiographic evidence of pneumonia. Right foot x-ray: No radiographic evidence of osteomyelitis. MRI right ankle show findings compatible with cellulitis with underlying osteomyelitis. MRI Left leg with findings as below 1. Moderate subcutaneous edema suggestive of cellulitis, lymphedema or venous stasis. 2. No fluid collection to suggest abscess. 3. Normal bone marrow signal. Bilateral lower extremity arterial duplex with no hemodynamically significant stenosis OR rt ankle clx 05/12 negative so far; pathology still pending OR rt fibula clx 05/12 with GPC so far Plan Sepsis due to Right ankle cellulitis and osteomyelitis- sepsis resolved Blood cultures negative so far Seen by podiatry and status post Right Fibula Excision Non-Viable Bone with Wound Vac(Right) by Dr. Velasco 05/12/2023 OR clx with GPC Continue empiric antibiotics Vanc/cefepime Wound VAC management per podiatry ID consult for further antibiotic management (4) History of pulmonary embolism: Plan: History of PE/DVT. History of IVC filter. Chronically anticoagulated on Eliquis and resumed after surgery. (5) Paroxysmal atrial fibrillation: Plan: On lopressor. Anticoagulated on Eliquis. PATs- Continue increased dose of metoprolol and continue tele. Echo unremarkable (6) Multiple sclerosis: Plan: On chronic prednisone, Continue Aubagio, prednisone (7) CAD (coronary artery disease): Plan: History of nonobstructive CAD. Continue aspirin, statin (8) Chronic anemia: Plan: Hemoglobin stable more than 9. Recheck intermittently. (9) HX: breast cancer: Plan: History of left breast cancer s/p surgery, radiation DVT Prophylaxis-Eliquis Dispo- Continue current level of care. Pending final culture and pathology results for final antibiotic determination, ID evaluation pending Admission and Anticipated Discharge Date Admission Date: May 08, 2023 Subjective Patient was seen and examined at bedside. She feels good. Denies any pain and has not required even tylenol. Normal appetite, sleep, bladder and bowel movements. No CP or SOB. No fever or chills. Review of Systems Review of Systems: All systems reviewed & are unremarkable except as noted in Subjective Physical Exam Physical Exam: General: Sitting in chair, not in distress, on room air HEENT: EOMI, BENJAMÍN, MMM Chest: Clear breath sounds bilaterally, no wheezes or crackles CVS: Regular rate and rhythm, normal heart sounds, no murmur Abdomen: Soft, non tender, not distended, normal bowel sounds Neuro: Awake, alert, oriented, conversing well, non focal Extremities: Right ankle wound with wound VAC in place Psych:Calm, cooperative, appreciative Results & Data Results & Data Vital Signs (Past 12 Hours) Vital Signs Temp Pulse Pulse Resp BP Pulse Ox O2 Del Method 05/16/23 07:55 36.5 C 75 18 132/86 96 Room Air 05/16/23 07:53 77 05/16/23 03:00 36.6 C 74 16 137/79 98 Room Air 05/15/23 23:55 69 05/15/23 23:00 36.2 C L 70 16 106/65 96 Room Air Laboratory Results [facility] 05/16/23 05:25 Creatinine 0.79 Medications Administered Current Inpatient Medications Acetaminophen (Acetaminophen 325 Mg Tab) 650 mg PO Q4H PRN PRN Reason: Pain or Fever Stop: 06/07/23 22:12 Last Admin: 05/14/23 21:09 Dose: 650 mg Apixaban (Apixaban 5 Mg Tablet) 5 mg PO BID [facility] Stop: 06/07/23 22:12 Last Admin: 05/16/23 08:32 Dose: 5 mg Aspirin (Aspirin 81 Mg Ectab) 81 mg PO DAILY [facility] Stop: 06/08/23 08:59 Last Admin: 05/16/23 08:33 Dose: 81 mg Atorvastatin Calcium (Atorvastatin 20 Mg Tab) 20 mg PO QAM [facility] Stop: 06/08/23 08:59 Last Admin: 05/16/23 08:32 Dose: 20 mg Escitalopram Oxalate (Escitalopram Oxalate 20 Mg Tab) 20 mg PO QAM [facility] Stop: 06/08/23 08:59 Last Admin: 05/16/23 08:32 Dose: 20 mg Cefepime HCl 2,000 mg/ Syringe 20 mls @ 5 mls/min IV Q8H [facility]; Protocol Stop: 06/21/23 13:59 Last Admin: 05/16/23 05:49 Dose: 5 mls/min Vancomycin HCl 750 mg/ Sodium (Chloride) 265 mls @ 200 mls/hr IV Q12 [facility] Stop: 05/23/23 08:59 Last Admin: 05/16/23 08:35 Dose: 200 mls/hr Melatonin (Melatonin 3 Mg Tab) 3 mg PO HS PRN PRN Reason: Insomnia Stop: 06/07/23 22:12 Last Admin: 05/15/23 21:53 Dose: 3 mg Metoprolol Tartrate (Metoprolol Tartrate 25 Mg Tab) 25 mg PO BID [facility] Stop: 06/11/23 20:59 Last Admin: 05/16/23 08:32 Dose: 25 mg Miscellaneous Information (Vancomycin Consult Active) 1 each N/A UD PRN PRN Reason: Consult Stop: 06/07/23 22:12 Multivitamins (Multivitamin Tab) 1 tab PO DAILY [facility] Stop: 06/08/23 08:59 Last Admin: 05/16/23 08:33 Dose: 1 tab Teriflunomide~Non- Formulary Patient's Own Med 1 each PO HS [facility] Stop: 06/08/23 20:59 Last Admin: 05/15/23 21:15 Dose: 14 mg Ondansetron HCl (Ondansetron Inj 2 Mg/Ml 2 Ml Vial) 4 mg IV Q6H PRN PRN Reason: Nausea Stop: 06/07/23 22:12 Oxybutynin Chloride (Oxybutynin Chloride Xl 5 Mg Tabcr) 15 mg PO QAM [facility] Stop: 06/08/23 08:59 Last Admin: 05/16/23 08:32 Dose: 15 mg Oxycodone HCl (Oxycodone Hcl Ir 5 Mg Tab (Immediate Release)) 5 mg PO Q6H PRN PRN Reason: Pain Stop: 05/26/23 13:37 Last Admin: 05/12/23 14:08 Dose: 5 mg Pantoprazole Sodium (Pantoprazole 40 Mg Tab) 40 mg PO [facility]; Protocol Stop: 06/08/23 08:59 Last Admin: 05/15/23 08:28 Dose: 40 mg Polyethylene Glycol (Polyethylene (Miralax) 17 Gm Pack) 17 gm PO DAILY PRN PRN Reason: Constipation Stop: 06/07/23 22:12 Prednisone (Prednisone 10 Mg Tablet) 10 mg PO [facility] Stop: 06/08/23 08:59 Last Admin: 05/16/23 08:33 Dose: 10 mg Tizanidine HCl (Tizanidine Hcl 4 Mg Tablet) 4 mg PO QID [facility] Stop: 06/07/23 22:59 Last Admin: 05/16/23 08:32 Dose: 4 mg Vitamin D (Cholecalciferol 1,000 Units 25 Mcg Tab) 1,000 units PO [facility] Stop: 06/08/23 08:59 Last Admin: 05/16/23 08:33 Dose: 1,000 units
[2023-05-16] MEDS: PANTOprazole 40 MG TAB PO SCH (09:54)
[2023-05-16] MEDS: AMPICILLIN 2,000 MG in SODIUM CHLOR 0.9% AD-VAN 100 ML IV SCH ×3 (14:30→21:04)
[2023-05-16] MEDS: TERIFLUNOMIDE PO SCH (19:37)
[2023-05-17] MEDS: AMPICILLIN 2,000 MG in SODIUM CHLOR 0.9% AD-VAN 100 ML IV SCH ×6 (03:00→21:26)
[2023-05-17 06:37] LABS: Creatinine Clr Calc Pharmacy 72.6 ml/min; Est GFR (African American) 102.2 ml/min; Est GFR (Non-African American) 88.2 ml/min
[2023-05-17] MEDS: METOPROLOL TARTRATE 25 MG TAB PO SCH ×2 (09:24→21:27)
[2023-05-17] MEDS: APIXABAN 5 MG TABLET PO SCH ×2 (09:24→21:27)
[2023-05-17] MEDS: tiZANidine HCL 4 MG TABLET PO SCH ×4 (09:25→21:27)
[2023-05-17] MEDS: predniSONE 10 MG TABLET PO SCH (09:25)
[2023-05-17] MEDS: OXYBUTYNIN CHLORIDE XL 5 MG TABCR PO SCH (09:26)
[2023-05-17] MEDS: CHOLECALCIFEROL 1,000 UNITS 25 MCG TAB PO SCH (09:26)
[2023-05-17] MEDS: ASPIRIN 81 MG ECTAB PO SCH (09:26)
[2023-05-17] MEDS: ESCITALOPRAM OXALATE 20 MG TAB PO SCH (09:26)
[2023-05-17] MEDS: PANTOprazole 40 MG TAB PO SCH (09:27)
[2023-05-17] MEDS: ATORVASTATIN 20 MG TAB PO SCH (09:27)
[2023-05-17] MEDS: MULTIVITAMIN TAB PO SCH (09:27)
--- NOTE | 2023-05-17 14:18 | Hospitalist Progress Note ---
Date of Service May 17, 2023 Assessment & Plan (1) Sepsis: (2) Ulcer of right ankle: (3) Osteomyelitis of ankle: Plan: 72-year-old female with PMH CAD, paroxysmal atrial fibrillation, history of PE/DVT, s/p IVC filter, anticoagulated on Eliquis, chronic anemia, HTN, HLD, chronic pain, history of left breast cancer s/p surgery, radiation, neurogenic bladder that self catheterizes presented to ER with c/o chills. Right lateral malleolar osteomyelitis, by MRI and pathology, bone culture with pansensitive Enterococcus faecalis In ER T: 37.6 C, P: 88, RR: 16, initial BP 101/60 dropped to 82/56. Was given 1500 mL NSS with repeat BP of 129/85 WBC: 16, lactate: 2.2, procalcitonin 3. UA unremarkable. Negative SARS-CoV-2 PCR CXR: No acute abnormalities and in particular no radiographic evidence of pneumonia. Right foot x-ray: No radiographic evidence of osteomyelitis. MRI right ankle show findings compatible with cellulitis with underlying osteomyelitis. MRI Left leg with findings as below 1. Moderate subcutaneous edema suggestive of cellulitis, lymphedema or venous stasis. 2. No fluid collection to suggest abscess. 3. Normal bone marrow signal. Bilateral lower extremity arterial duplex with no hemodynamically significant stenosis OR rt ankle clx 05/12 negative so far; pathology consistent with osteomyelitis OR rt fibula clx 05/12 with Enterococcus faecalis pansensitive Plan Sepsis due to Right ankle cellulitis and osteomyelitis- sepsis resolved Blood cultures negative Bone culture with Enterococcus faecalis Seen by podiatry and status post Right Fibula Excision Non-Viable Bone with Wound Vac(Right) by Dr. Velasco 05/12/2023 Seen by ID-recommended 6 weeks of IV ampicillin end date June 16, 2023, weekly CBC, BMP, follow-up appointment with ID in [place] or [facility] 6 to 8 weeks from discharge Continue wound VAC and wound care per podiatry-wound VAC change 3 times per week and as needed, 125 mgHg continuous PICC line placed today (4) History of pulmonary embolism: Plan: History of PE/DVT. History of IVC filter. Chronically anticoagulated on Eliquis and resumed after surgery. (5) Paroxysmal atrial fibrillation: Plan: On lopressor. Anticoagulated on Eliquis. PATs- Continue increased dose of metoprolol and continue tele. Echo unremarkable (6) Multiple sclerosis: Plan: On chronic prednisone, Continue Aubagio, prednisone (7) CAD (coronary artery disease): Plan: History of nonobstructive CAD. Continue aspirin, statin (8) Chronic anemia: Plan: Hemoglobin stable more than 9. Recheck intermittently. (9) HX: breast cancer: Plan: History of left breast cancer s/p surgery, radiation DVT Prophylaxis-Eliquis Dispo-patient is medically stable for discharge to [facility]. Admission and Anticipated Discharge Date Admission Date: May 08, 2023 Subjective Patient was seen and examined at bedside. She feels good. Denies any new issues. No fever, chills, chest pain or shortness of breath, nausea or vomiting. Review of Systems Review of Systems: All systems reviewed & are unremarkable except as noted in Subjective Physical Exam Physical Exam: General: Sitting in chair, not in distress, on room air HEENT: EOMI, BENJAMÍN, MMM Chest: Clear breath sounds bilaterally, no wheezes or crackles CVS: Regular rate and rhythm, normal heart sounds, no murmur Abdomen: Soft, non tender, not distended, normal bowel sounds Neuro: Awake, alert, oriented, conversing well, non focal Extremities: Right ankle wound with wound VAC in place Psych:Calm, cooperative, appreciative Results & Data Results & Data Vital Signs (Past 12 Hours) Vital Signs Temp Pulse Pulse Resp BP Pulse Ox O2 Del Method 05/17/23 11:11 36.6 C 72 20 116/71 98 Room Air 05/17/23 07:51 36.6 C 79 20 148/94 H 96 Room Air 05/17/23 07:34 70 05/17/23 03:28 36.3 C L 71 18 168/95 H 97 Room Air Laboratory Results [facility] 05/17/23 05:47 Creatinine 0.69 Medications Administered Current Inpatient Medications Acetaminophen (Acetaminophen 325 Mg Tab) 650 mg PO Q4H PRN PRN Reason: Pain or Fever Stop: 06/07/23 22:12 Last Admin: 05/14/23 21:09 Dose: 650 mg Apixaban (Apixaban 5 Mg Tablet) 5 mg PO BID [facility] Stop: 06/07/23 22:12 Last Admin: 05/17/23 09:24 Dose: 5 mg Aspirin (Aspirin 81 Mg Ectab) 81 mg PO DAILY [facility] Stop: 06/08/23 08:59 Last Admin: 05/17/23 09:26 Dose: 81 mg Atorvastatin Calcium (Atorvastatin 20 Mg Tab) 20 mg PO QAM [facility] Stop: 06/08/23 08:59 Last Admin: 05/17/23 09:27 Dose: 20 mg Escitalopram Oxalate (Escitalopram Oxalate 20 Mg Tab) 20 mg PO QAM [facility] Stop: 06/08/23 08:59 Last Admin: 05/17/23 09:26 Dose: 20 mg Ampicillin Sodium 2,000 mg/ (Sodium Chloride) 100 mls @ 200 mls/hr IV Q4H [facility] Stop: 06/27/23 13:59 Last Infusion: 05/17/23 10:17 Dose: Infused Melatonin (Melatonin 3 Mg Tab) 3 mg PO HS PRN PRN Reason: Insomnia Stop: 06/07/23 22:12 Last Admin: 05/15/23 21:53 Dose: 3 mg Metoprolol Tartrate (Metoprolol Tartrate 25 Mg Tab) 25 mg PO BID [facility] Stop: 06/11/23 20:59 Last Admin: 05/17/23 09:24 Dose: 25 mg Multivitamins (Multivitamin Tab) 1 tab PO DAILY [facility] Stop: 06/08/23 08:59 Last Admin: 05/17/23 09:27 Dose: 1 tab Teriflunomide~Non- Formulary Patient's Own Med 1 each PO HS [facility] Stop: 06/08/23 20:59 Last Admin: 05/16/23 19:37 Dose: 14 mg Ondansetron HCl (Ondansetron Inj 2 Mg/Ml 2 Ml Vial) 4 mg IV Q6H PRN PRN Reason: Nausea Stop: 06/07/23 22:12 Oxybutynin Chloride (Oxybutynin Chloride Xl 5 Mg Tabcr) [facility] Stop: 06/08/23 08:59 Last Admin: 05/17/23 09:26 Dose: 15 mg Oxycodone HCl (Oxycodone Hcl Ir 5 Mg Tab (Immediate Release)) 5 mg PO Q6H PRN PRN Reason: Pain Stop: 05/26/23 13:37 Last Admin: 05/12/23 14:08 Dose: 5 mg Pantoprazole Sodium (Pantoprazole 40 Mg Tab) [facility] Stop: 06/08/23 08:59 Last Admin: 05/17/23 09:27 Dose: 40 mg Polyethylene Glycol (Polyethylene (Miralax) 17 Gm Pack) 17 gm PO DAILY PRN PRN Reason: Constipation Stop: 06/07/23 22:12 Prednisone (Prednisone 10 Mg Tablet) 10 mg PO [facility] Stop: 06/08/23 08:59 Last Admin: 05/17/23 09:25 Dose: 10 mg Tizanidine HCl (Tizanidine Hcl 4 Mg Tablet) 4 mg PO QID [facility] Stop: 06/07/23 22:59 Last Admin: 05/17/23 09:25 Dose: 4 mg Vitamin D (Cholecalciferol 1,000 Units 25 Mcg Tab) 1,000 units PO [facility] Stop: 06/08/23 08:59 Last Admin: 05/17/23 09:26 Dose: 1,000 units
[2023-05-17] MEDS: TERIFLUNOMIDE PO SCH (21:27)
[2023-05-17] MEDS: MELATONIN 3 MG TAB PO PRN (22:05)
[2023-05-18] MEDS: AMPICILLIN 2,000 MG in SODIUM CHLOR 0.9% AD-VAN 100 ML IV SCH ×6 (03:03→21:58)
[2023-05-18 05:30] LABS: Est GFR (African American) 93.6 ml/min; Est GFR (Non-African American) 80.8 ml/min
[2023-05-18] MEDS: ASPIRIN 81 MG ECTAB PO SCH (08:59)
[2023-05-18] MEDS: predniSONE 10 MG TABLET PO SCH (08:59)
[2023-05-18] MEDS: OXYBUTYNIN CHLORIDE XL 5 MG TABCR PO SCH (08:59)
[2023-05-18] MEDS: METOPROLOL TARTRATE 25 MG TAB PO SCH ×2 (08:59→20:34)
[2023-05-18] MEDS: ESCITALOPRAM OXALATE 20 MG TAB PO SCH (09:00)
[2023-05-18] MEDS: ATORVASTATIN 20 MG TAB PO SCH (09:00)
[2023-05-18] MEDS: CHOLECALCIFEROL 1,000 UNITS 25 MCG TAB PO SCH (09:00)
[2023-05-18] MEDS: MULTIVITAMIN TAB PO SCH (09:00)
[2023-05-18] MEDS: APIXABAN 5 MG TABLET PO SCH ×2 (09:00→20:34)
[2023-05-18] MEDS: PANTOprazole 40 MG TAB PO SCH (09:00)
[2023-05-18] MEDS: tiZANidine HCL 4 MG TABLET PO SCH ×4 (09:00→20:34)
--- NOTE | 2023-05-18 14:45 | Hospitalist Progress Note ---
Date of Service May 18, 2023 Assessment & Plan (1) Sepsis: (2) Ulcer of right ankle: (3) Osteomyelitis of ankle: Plan: 72-year-old female with PMH CAD, paroxysmal atrial fibrillation, history of PE/DVT, s/p IVC filter, anticoagulated on Eliquis, chronic anemia, HTN, HLD, chronic pain, history of left breast cancer s/p surgery, radiation, neurogenic bladder that self catheterizes presented to ER with c/o chills. Right lateral malleolar osteomyelitis, by MRI and pathology, bone culture with pansensitive Enterococcus faecalis In ER T: 37.6 C, P: 88, RR: 16, initial BP 101/60 dropped to 82/56. Was given 1500 mL NSS with repeat BP of 129/85 WBC: 16, lactate: 2.2, procalcitonin 3. UA unremarkable. Negative SARS-CoV-2 PCR CXR: No acute abnormalities and in particular no radiographic evidence of pneumonia. Right foot x-ray: No radiographic evidence of osteomyelitis. MRI right ankle show findings compatible with cellulitis with underlying osteomyelitis. MRI Left leg with findings as below 1. Moderate subcutaneous edema suggestive of cellulitis, lymphedema or venous stasis. 2. No fluid collection to suggest abscess. 3. Normal bone marrow signal. Bilateral lower extremity arterial duplex with no hemodynamically significant stenosis OR rt ankle clx 05/12 negative so far; pathology consistent with osteomyelitis OR rt fibula clx 05/12 with Enterococcus faecalis pansensitive Plan Sepsis due to Right ankle cellulitis and osteomyelitis- sepsis resolved Blood cultures negative Bone culture with Enterococcus faecalis Seen by podiatry and status post Right Fibula Excision Non-Viable Bone with Wound Vac(Right) by Dr. Velasco 05/12/2023 Seen by ID-recommended 6 weeks of IV ampicillin end date June 24, 2023; weekly CBC, BMP while on antibiotics; follow-up appointment with ID in [place] or [facility] 6 to 8 weeks from discharge Continue wound VAC and wound care per podiatry-wound VAC change 3 times per week and as needed, 125 mgHg continuous Unable to place PICC line due to poor vascular anatomy on right, unable to use left upper extremity due to prior breast surgery with lymph node removal. Mid line placed today (4) History of pulmonary embolism: Plan: History of PE/DVT. History of IVC filter. Chronically anticoagulated on Eliquis (5) Paroxysmal atrial fibrillation: Plan: On lopressor. Anticoagulated on Eliquis. PATs- significantly improved after increasing dose of lopressor. Continue increased dose of metoprolol and continue tele. Echo unremarkable (6) Multiple sclerosis: Plan: On chronic prednisone, Continue Aubagio, prednisone (7) CAD (coronary artery disease): Plan: History of nonobstructive CAD. Continue aspirin, statin (8) Chronic anemia: Plan: Hemoglobin stable more than 9. Recheck intermittently. (9) HX: breast cancer: Plan: History of left breast cancer s/p surgery, radiation DVT Prophylaxis-Eliquis Dispo-patient is medically stable for discharge to [facility]. Admission and Anticipated Discharge Date Admission Date: May 08, 2023 Subjective Patient was seen and examined at bedside. She does not have any new issues. She does not feel ready to go to rehab today. She is hoping to get there tomorrow. No fever, chills, chest pain or shortness of breath, nausea or vomiting. No pain. Review of Systems Review of Systems: All systems reviewed & are unremarkable except as noted in Subjective Physical Exam Physical Exam: General: Sitting in chair, not in distress, on room air HEENT: EOMI, BENJAMÍN, MMM Chest: Clear breath sounds bilaterally, no wheezes or crackles CVS: Regular rate and rhythm, normal heart sounds, no murmur Abdomen: Soft, non tender, not distended, normal bowel sounds Neuro: Awake, alert, oriented, conversing well, non focal Extremities: Right ankle wound with wound VAC in place Psych: Anxious, appreciative Results & Data Results & Data Vital Signs (Past 12 Hours) Vital Signs Temp Pulse Pulse Resp BP Pulse Ox O2 Del Method 05/18/23 12:10 36.8 C 65 20 115/73 92 Room Air 05/18/23 07:54 36.6 C 84 20 131/97 93 Room Air 05/18/23 07:41 71 05/18/23 03:10 36.7 C 71 16 129/80 97 Room Air Laboratory Results [facility] 05/18/23 04:31 Creatinine 0.75 Medications Administered Current Inpatient Medications Acetaminophen (Acetaminophen 325 Mg Tab) 650 mg PO Q4H PRN PRN Reason: Pain or Fever Stop: 06/07/23 22:12 Last Admin: 05/14/23 21:09 Dose: 650 mg Apixaban (Apixaban 5 Mg Tablet) 5 mg PO BID [facility] Stop: 06/07/23 22:12 Last Admin: 05/18/23 09:00 Dose: 5 mg Aspirin (Aspirin 81 Mg Ectab) 81 mg PO DAILY [facility] Stop: 06/08/23 08:59 Last Admin: 05/18/23 08:59 Dose: 81 mg Atorvastatin Calcium (Atorvastatin 20 Mg Tab) 20 mg PO QAM [facility] Stop: 06/08/23 08:59 Last Admin: 05/18/23 09:00 Dose: 20 mg Escitalopram Oxalate (Escitalopram Oxalate 20 Mg Tab) 20 mg PO QAM [facility] Stop: 06/08/23 08:59 Last Admin: 05/18/23 09:00 Dose: 20 mg Ampicillin Sodium 2,000 mg/ (Sodium Chloride) 100 mls @ 200 mls/hr IV Q4H [facility] Stop: 06/27/23 13:59 Last Infusion: 05/18/23 14:34 Dose: Infused Melatonin (Melatonin 3 Mg Tab) 3 mg PO HS PRN PRN Reason: Insomnia Stop: 06/07/23 22:12 Last Admin: 05/17/23 22:05 Dose: 3 mg Metoprolol Tartrate (Metoprolol Tartrate 25 Mg Tab) 25 mg PO BID [facility] Stop: 06/11/23 20:59 Last Admin: 05/18/23 08:59 Dose: 25 mg Multivitamins (Multivitamin Tab) 1 tab PO DAILY [facility] Stop: 06/08/23 08:59 Last Admin: 05/18/23 09:00 Dose: 1 tab Teriflunomide~Non- Formulary Patient's Own Med 1 each PO HS [facility] Stop: 06/08/23 20:59 Last Admin: 05/17/23 21:27 Dose: 14 mg Ondansetron HCl (Ondansetron Inj 2 Mg/Ml 2 Ml Vial) 4 mg IV Q6H PRN PRN Reason: Nausea Stop: 06/07/23 22:12 Oxybutynin Chloride (Oxybutynin Chloride Xl 5 Mg Tabcr) 15 mg PO QAM [facility] Stop: 06/08/23 08:59 Last Admin: 05/18/23 08:59 Dose: 15 mg Oxycodone HCl (Oxycodone Hcl Ir 5 Mg Tab (Immediate Release)) 5 mg PO Q6H PRN PRN Reason: Pain Stop: 05/26/23 13:37 Last Admin: 05/12/23 14:08 Dose: 5 mg Pantoprazole Sodium (Pantoprazole 40 Mg Tab) 40 mg PO [facility]; Protocol Stop: 06/08/23 08:59 Last Admin: 05/18/23 09:00 Dose: 40 mg Polyethylene Glycol (Polyethylene (Miralax) 17 Gm Pack) 17 gm PO DAILY PRN PRN Reason: Constipation Stop: 06/07/23 22:12 Prednisone (Prednisone 10 Mg Tablet) 10 mg PO [facility] Stop: 06/08/23 08:59 Last Admin: 05/18/23 08:59 Dose: 10 mg Tizanidine HCl (Tizanidine Hcl 4 Mg Tablet) 4 mg PO QID [facility] Stop: 06/07/23 22:59 Last Admin: 05/18/23 13:28 Dose: 4 mg Vitamin D (Cholecalciferol 1,000 Units 25 Mcg Tab) 1,000 units PO [facility] Stop: 06/08/23 08:59 Last Admin: 05/18/23 09:00 Dose: 1,000 units
[2023-05-18] MEDS: TERIFLUNOMIDE PO SCH (20:34)
[2023-05-18] MEDS ORDERED: NYSTATIN POWDER 15GM BTL EXT PRN (22:12)
[2023-05-19] MEDS: AMPICILLIN 2,000 MG in SODIUM CHLOR 0.9% AD-VAN 100 ML IV SCH ×6 (02:09→22:03)
[2023-05-19 06:29] LABS: Creatinine Clr Calc Pharmacy 68.8 ml/min; Est GFR (African American) 98.3 ml/min; Est GFR (Non-African American) 84.9 ml/min
[2023-05-19] MEDS: OXYBUTYNIN CHLORIDE XL 5 MG TABCR PO SCH (08:00)
[2023-05-19] MEDS: ESCITALOPRAM OXALATE 20 MG TAB PO SCH (08:00)
[2023-05-19] MEDS: PANTOprazole 40 MG TAB PO SCH (08:00)
[2023-05-19] MEDS: ATORVASTATIN 20 MG TAB PO SCH (08:00)
[2023-05-19] MEDS: ASPIRIN 81 MG ECTAB PO SCH (08:00)
[2023-05-19] MEDS: MULTIVITAMIN TAB PO SCH (08:00)
[2023-05-19] MEDS: APIXABAN 5 MG TABLET PO SCH ×2 (08:01→21:10)
[2023-05-19] MEDS: tiZANidine HCL 4 MG TABLET PO SCH ×4 (08:01→21:10)
[2023-05-19] MEDS: METOPROLOL TARTRATE 25 MG TAB PO SCH ×2 (08:01→21:10)
[2023-05-19] MEDS: predniSONE 10 MG TABLET PO SCH (08:01)
[2023-05-19] MEDS: CHOLECALCIFEROL 1,000 UNITS 25 MCG TAB PO SCH (08:03)
--- NOTE | 2023-05-19 13:24 | Hospitalist Progress Note ---
Date of Service May 19, 2023 Assessment & Plan (1) Sepsis: (2) Ulcer of right ankle: (3) Osteomyelitis of ankle: Plan: 72-year-old female with PMH CAD, paroxysmal atrial fibrillation, history of PE/DVT, s/p IVC filter, anticoagulated on Eliquis, chronic anemia, HTN, HLD, chronic pain, history of left breast cancer s/p surgery, radiation, neurogenic bladder that self catheterizes presented to ER with c/o chills. Right lateral malleolar osteomyelitis, by MRI and pathology, bone culture with pansensitive Enterococcus faecalis In ER T: 37.6 C, P: 88, RR: 16, initial BP 101/60 dropped to 82/56. Was given 1500 mL NSS with repeat BP of 129/85 WBC: 16, lactate: 2.2, procalcitonin 3. UA unremarkable. Negative SARS-CoV-2 PCR CXR: No acute abnormalities and in particular no radiographic evidence of pneumonia. Right foot x-ray: No radiographic evidence of osteomyelitis. MRI right ankle show findings compatible with cellulitis with underlying osteomyelitis. MRI Left leg with findings as below 1. Moderate subcutaneous edema suggestive of cellulitis, lymphedema or venous stasis. 2. No fluid collection to suggest abscess. 3. Normal bone marrow signal. Bilateral lower extremity arterial duplex with no hemodynamically significant stenosis OR rt ankle clx 05/12 negative so far; pathology consistent with osteomyelitis OR rt fibula clx 05/12 with Enterococcus faecalis pansensitive Plan Sepsis due to Right ankle cellulitis and osteomyelitis- sepsis resolved Blood cultures negative Bone culture with Enterococcus faecalis Seen by podiatry and status post Right Fibula Excision Non-Viable Bone with Wound Vac(Right) by Dr. Velasco 05/12/2023 Seen by ID-recommended 6 weeks of IV ampicillin end date June 24, 2023; weekly CBC, BMP while on antibiotics; follow-up appointment with ID in [place] or [facility] 6 to 8 weeks from discharge Continue wound VAC and wound care per podiatry-wound VAC change 3 times per week and as needed, 125 mgHg continuous Unable to place PICC line due to poor vascular anatomy on right, unable to use left upper extremity due to prior breast surgery with lymph node removal. Mid line placed 05/18 (4) History of pulmonary embolism: Plan: History of PE/DVT. History of IVC filter. Chronically anticoagulated on Eliquis (5) Paroxysmal atrial fibrillation: Plan: On lopressor. Anticoagulated on Eliquis. PATs- significantly improved after increasing dose of lopressor. Continue increased dose of metoprolol and continue tele. Echo unremarkable (6) Multiple sclerosis: Plan: On chronic prednisone, Continue Aubagio, prednisone (7) CAD (coronary artery disease): Plan: History of nonobstructive CAD. Continue aspirin, statin (8) Chronic anemia: Plan: Hemoglobin stable more than 9. Recheck intermittently. (9) HX: breast cancer: Plan: History of left breast cancer s/p surgery, radiation DVT Prophylaxis-Eliquis Dispo-patient is medically stable for discharge to [facility]. Admission and Anticipated Discharge Date Admission Date: May 08, 2023 Subjective Patient was seen and examined at bedside. No new issues. She feels ready go to rehab. No fever, chills, chest pain or shortness of breath, nausea or vomiting. Review of Systems Review of Systems: All systems reviewed & are unremarkable except as noted in Subjective Physical Exam Physical Exam: General: Sitting in chair, not in distress, on room air HEENT: EOMI, BENJAMÍN, MMM Chest: Clear breath sounds bilaterally, no wheezes or crackles CVS: Regular rate and rhythm, normal heart sounds, no murmur Abdomen: Soft, non tender, not distended, normal bowel sounds Neuro: Awake, alert, oriented, conversing well, non focal Extremities: Right ankle wound with wound VAC in place Psych: Anxious, appreciative Results & Data Results & Data Vital Signs (Past 12 Hours) Vital Signs Temp Pulse Pulse Pulse Resp BP BP 05/19/23 11:33 36.3 C L 75 16 129/80 05/19/23 07:54 36.8 C 81 16 147/90 H 05/19/23 06:00 73 05/19/23 02:40 36.8 C 75 16 130/73 Pulse Ox O2 Del Method 05/19/23 11:33 97 Room Air 05/19/23 07:54 95 Room Air 05/19/23 06:00 05/19/23 02:40 93 Room Air Laboratory Results BMP 05/19/23 05:30 Creatinine 0.72 Medications Administered Current Inpatient Medications Acetaminophen (Acetaminophen 325 Mg Tab) 650 mg PO Q4H PRN PRN Reason: Pain or Fever Stop: 06/07/23 22:12 Last Admin: 05/14/23 21:09 Dose: 650 mg Apixaban (Apixaban 5 Mg Tablet) 5 mg PO BID [facility] Stop: 06/07/23 22:12 Last Admin: 05/19/23 08:01 Dose: 5 mg Aspirin (Aspirin 81 Mg Ectab) 81 mg PO DAILY [facility] Stop: 06/08/23 08:59 Last Admin: 05/19/23 08:00 Dose: 81 mg Atorvastatin Calcium (Atorvastatin 20 Mg Tab) 20 mg PO QAM [facility] Stop: 06/08/23 08:59 Last Admin: 05/19/23 08:00 Dose: 20 mg Escitalopram Oxalate (Escitalopram Oxalate 20 Mg Tab) 20 mg PO QAM [facility] Stop: 06/08/23 08:59 Last Admin: 05/19/23 08:00 Dose: 20 mg Ampicillin Sodium 2,000 mg/ (Sodium Chloride) 100 mls @ 200 mls/hr IV Q4H [facility] Stop: 06/27/23 13:59 Last Infusion: 05/19/23 11:18 Dose: Infused Melatonin (Melatonin 3 Mg Tab) 3 mg PO HS PRN PRN Reason: Insomnia Stop: 06/07/23 22:12 Last Admin: 05/17/23 22:05 Dose: 3 mg Metoprolol Tartrate (Metoprolol Tartrate 25 Mg Tab) 25 mg PO BID [facility] Stop: 06/11/23 20:59 Last Admin: 05/19/23 08:01 Dose: 25 mg Multivitamins (Multivitamin Tab) 1 tab PO DAILY [facility] Stop: 06/08/23 08:59 Last Admin: 05/19/23 08:00 Dose: 1 tab Teriflunomide~Non- Formulary Patient's Own Med 1 each PO HS [facility] Stop: 06/08/23 20:59 Last Admin: 05/18/23 20:34 Dose: 1 mg Nystatin (Nystatin Powder 15gm Btl) 1 appln EXT DAILY PRN PRN Reason: NEEDED Stop: 06/17/23 22:11 Ondansetron HCl (Ondansetron Inj 2 Mg/Ml 2 Ml Vial) 4 mg IV Q6H PRN PRN Reason: Nausea Stop: 06/07/23 22:12 Oxybutynin Chloride (Oxybutynin Chloride Xl 5 Mg Tabcr) 15 mg PO QAM [facility] Stop: 06/08/23 08:59 Last Admin: 05/19/23 08:00 Dose: 15 mg Oxycodone HCl (Oxycodone Hcl Ir 5 Mg Tab (Immediate Release)) 5 mg PO Q6H PRN PRN Reason: Pain Stop: 05/26/23 13:37 Last Admin: 05/12/23 14:08 Dose: 5 mg Pantoprazole Sodium (Pantoprazole 40 Mg Tab) 40 mg PO [facility]; Protocol Stop: 06/08/23 08:59 Last Admin: 05/19/23 08:00 Dose: 40 mg Polyethylene Glycol (Polyethylene (Miralax) 17 Gm Pack) 17 gm PO DAILY PRN PRN Reason: Constipation Stop: 06/07/23 22:12 Prednisone (Prednisone 10 Mg Tablet) 10 mg PO [facility] Stop: 06/08/23 08:59 Last Admin: 05/19/23 08:01 Dose: 10 mg Tizanidine HCl (Tizanidine Hcl 4 Mg Tablet) 4 mg PO QID [facility] Stop: 06/07/23 22:59 Last Admin: 05/19/23 08:01 Dose: 4 mg Vitamin D (Cholecalciferol 1,000 Units 25 Mcg Tab) 1,000 units PO [facility] Stop: 06/08/23 08:59 Last Admin: 05/19/23 08:03 Dose: 1,000 units
[2023-05-19] MEDS: TERIFLUNOMIDE PO SCH (21:10)
[2023-05-20] MEDS: AMPICILLIN 2,000 MG in SODIUM CHLOR 0.9% AD-VAN 100 ML IV SCH ×6 (02:13→21:34)
[2023-05-20] MEDS: APIXABAN 5 MG TABLET PO SCH ×2 (09:09→21:34)
[2023-05-20] MEDS: METOPROLOL TARTRATE 25 MG TAB PO SCH ×2 (09:09→21:34)
[2023-05-20] MEDS: OXYBUTYNIN CHLORIDE XL 5 MG TABCR PO SCH (09:10)
[2023-05-20] MEDS: predniSONE 10 MG TABLET PO SCH (09:10)
[2023-05-20] MEDS: MULTIVITAMIN TAB PO SCH (09:10)
[2023-05-20] MEDS: ASPIRIN 81 MG ECTAB PO SCH (09:10)
[2023-05-20] MEDS: tiZANidine HCL 4 MG TABLET PO SCH ×4 (09:10→21:34)
[2023-05-20] MEDS: PANTOprazole 40 MG TAB PO SCH (09:10)
[2023-05-20] MEDS: ATORVASTATIN 20 MG TAB PO SCH (09:10)
[2023-05-20] MEDS: ESCITALOPRAM OXALATE 20 MG TAB PO SCH (09:11)
[2023-05-20] MEDS: CHOLECALCIFEROL 1,000 UNITS 25 MCG TAB PO SCH (09:11)
--- NOTE | 2023-05-20 14:42 | Hospitalist Progress Note ---
Date of Service May 20, 2023 Assessment & Plan (1) Sepsis: (2) Ulcer of right ankle: (3) Osteomyelitis of ankle: Plan: 72-year-old female with PMH CAD, paroxysmal atrial fibrillation, history of PE/DVT, s/p IVC filter, anticoagulated on Eliquis, chronic anemia, HTN, HLD, chronic pain, history of left breast cancer s/p surgery, radiation, neurogenic bladder that self catheterizes presented to ER with c/o chills. Right lateral malleolar osteomyelitis, by MRI and pathology, bone culture with pansensitive Enterococcus faecalis In ER T: 37.6 C, P: 88, RR: 16, initial BP 101/60 dropped to 82/56. Was given 1500 mL NSS with repeat BP of 129/85 WBC: 16, lactate: 2.2, procalcitonin 3. UA unremarkable. Negative SARS-CoV-2 PCR CXR: No acute abnormalities and in particular no radiographic evidence of pneumonia. Right foot x-ray: No radiographic evidence of osteomyelitis. MRI right ankle show findings compatible with cellulitis with underlying osteomyelitis. MRI Left leg with findings as below 1. Moderate subcutaneous edema suggestive of cellulitis, lymphedema or venous stasis. 2. No fluid collection to suggest abscess. 3. Normal bone marrow signal. Bilateral lower extremity arterial duplex with no hemodynamically significant stenosis OR rt ankle clx 05/12 negative so far; pathology consistent with osteomyelitis OR rt fibula clx 05/12 with Enterococcus faecalis pansensitive Plan Sepsis due to Right ankle cellulitis and osteomyelitis- sepsis resolved Blood cultures negative Bone culture with Enterococcus faecalis Seen by podiatry and status post Right Fibula Excision Non-Viable Bone with Wound Vac(Right) by Dr. Velasco 05/12/2023 Seen by ID-recommended 6 weeks of IV ampicillin end date June 24, 2023; weekly CBC, BMP while on antibiotics; follow-up appointment with ID in [place] or [facility] 6 to 8 weeks from discharge Continue wound VAC and wound care per podiatry-wound VAC change 3 times per week and as needed, 125 mgHg continuous Unable to place PICC line due to poor vascular anatomy on right, unable to use left upper extremity due to prior breast surgery with lymph node removal. Mid line placed 05/18 (4) History of pulmonary embolism: Plan: History of PE/DVT. History of IVC filter. Chronically anticoagulated on Eliquis (5) Paroxysmal atrial fibrillation: Plan: On lopressor. Anticoagulated on Eliquis. PATs- significantly improved after increasing dose of lopressor. Continue increased dose of metoprolol and continue tele. Echo unremarkable (6) Multiple sclerosis: Plan: On chronic prednisone, Continue Aubagio, prednisone (7) CAD (coronary artery disease): Plan: History of nonobstructive CAD. Continue aspirin, statin (8) Chronic anemia: Plan: Hemoglobin stable more than 9. Recheck intermittently. (9) HX: breast cancer: Plan: History of left breast cancer s/p surgery, radiation DVT Prophylaxis-Eliquis Dispo-patient is medically stable for discharge to [facility]. Admission and Anticipated Discharge Date Admission Date: May 08, 2023 Subjective Patient was seen and examined at bedside. Wound vac being changed during my encounter. No new issues. She feels ready go to rehab. No fever, chills, chest pain or shortness of breath, nausea or vomiting. Review of Systems Review of Systems: All systems reviewed & are unremarkable except as noted in Subjective Physical Exam Physical Exam: General: Sitting in chair, not in distress, on room air HEENT: EOMI, BENJAMÍN, MMM Chest: Clear breath sounds bilaterally, no wheezes or crackles CVS: Regular rate and rhythm, normal heart sounds, no murmur Abdomen: Soft, non tender, not distended, normal bowel sounds Neuro: Awake, alert, oriented, conversing well, non focal Extremities: Right ankle wound with wound VAC in place Psych: Anxious, appreciative Results & Data Results & Data Vital Signs (Past 12 Hours) Vital Signs Temp Pulse Pulse Pulse Resp BP Pulse Ox 05/20/23 11:00 36.3 C L 69 20 128/76 95 05/20/23 05:52 77 05/20/23 07:47 36.9 C 84 20 135/83 92 05/20/23 04:07 36.8 C 80 16 99/64 L 94 O2 Del Method 05/20/23 11:00 Room Air 05/20/23 05:52 05/20/23 07:47 Room Air 05/20/23 04:07 Room Air Medications Administered Current Inpatient Medications Acetaminophen (Acetaminophen 325 Mg Tab) 650 mg PO Q4H PRN PRN Reason: Pain or Fever Stop: 06/07/23 22:12 Last Admin: 05/14/23 21:09 Dose: 650 mg Apixaban (Apixaban 5 Mg Tablet) 5 mg PO BID [facility] Stop: 06/07/23 22:12 Last Admin: 05/20/23 09:09 Dose: 5 mg Aspirin (Aspirin 81 Mg Ectab) 81 mg PO DAILY [facility] Stop: 06/08/23 08:59 Last Admin: 05/20/23 09:10 Dose: 81 mg Atorvastatin Calcium (Atorvastatin 20 Mg Tab) 20 mg PO QAM [facility] Stop: 06/08/23 08:59 Last Admin: 05/20/23 09:10 Dose: 20 mg Escitalopram Oxalate (Escitalopram Oxalate 20 Mg Tab) 20 mg PO QAM [facility] Stop: 06/08/23 08:59 Last Admin: 05/20/23 09:11 Dose: 20 mg Ampicillin Sodium 2,000 mg/ (Sodium Chloride) 100 mls @ 200 mls/hr IV Q4H [facility] Stop: 06/27/23 13:59 Last Infusion: 05/20/23 10:58 Dose: Infused Melatonin (Melatonin 3 Mg Tab) 3 mg PO HS PRN PRN Reason: Insomnia Stop: 06/07/23 22:12 Last Admin: 05/17/23 22:05 Dose: 3 mg Metoprolol Tartrate (Metoprolol Tartrate 25 Mg Tab) 25 mg PO BID [facility] Stop: 06/11/23 20:59 Last Admin: 05/20/23 09:09 Dose: 25 mg Multivitamins (Multivitamin Tab) 1 tab PO DAILY [facility] Stop: 06/08/23 08:59 Last Admin: 05/20/23 09:10 Dose: 1 tab Teriflunomide~Non- Formulary Patient's Own Med 1 each PO HS [facility] Stop: 06/08/23 20:59 Last Admin: 05/19/23 21:10 Dose: 14 mg Nystatin (Nystatin Powder 15gm Btl) 1 appln EXT DAILY PRN PRN Reason: NEEDED Stop: 06/17/23 22:11 Ondansetron HCl (Ondansetron Inj 2 Mg/Ml 2 Ml Vial) 4 mg IV Q6H PRN PRN Reason: Nausea Stop: 06/07/23 22:12 Oxybutynin Chloride (Oxybutynin Chloride Xl 5 Mg Tabcr) 15 mg PO QAM [facility] Stop: 06/08/23 08:59 Last Admin: 05/20/23 09:10 Dose: 15 mg Oxycodone HCl (Oxycodone Hcl Ir 5 Mg Tab (Immediate Release)) 5 mg PO Q6H PRN PRN Reason: Pain Stop: 05/26/23 13:37 Last Admin: 05/12/23 14:08 Dose: 5 mg Pantoprazole Sodium (Pantoprazole 40 Mg Tab) 40 mg PO [facility]; Protocol Stop: 06/08/23 08:59 Last Admin: 05/20/23 09:10 Dose: 40 mg Polyethylene Glycol (Polyethylene (Miralax) 17 Gm Pack) 17 gm PO DAILY PRN PRN Reason: Constipation Stop: 06/07/23 22:12 Prednisone (Prednisone 10 Mg Tablet) 10 mg PO [facility] Stop: 06/08/23 08:59 Last Admin: 05/20/23 09:10 Dose: 10 mg Tizanidine HCl (Tizanidine Hcl 4 Mg Tablet) 4 mg PO QID [facility] Stop: 06/07/23 22:59 Last Admin: 05/20/23 12:19 Dose: 4 mg Vitamin D (Cholecalciferol 1,000 Units 25 Mcg Tab) 1,000 units PO [facility] Stop: 06/08/23 08:59 Last Admin: 05/20/23 09:11 Dose: 1,000 units
[2023-05-20] MEDS: TERIFLUNOMIDE PO SCH (21:34)
[2023-05-21] MEDS: AMPICILLIN 2,000 MG in SODIUM CHLOR 0.9% AD-VAN 100 ML IV SCH ×4 (01:36→13:24)
[2023-05-21 06:38] LABS: Hematocrit (blood only) 28.2 % (37.0-47.0); Hemoglobin 8.9 g/dl (12.0-16.0); Mean Corpuscular Hgb Conc 31.6 g/dL (32.0-36.0); Mean Corpuscular Volume 91.9 fL (80.0-100.0); Mean Platelet Volume 10.4 fL (9.4-12.4); Platelet Count 259 K/uL (130-400); RDW Coefficient of Variation 16.7 % (11.5-14.5); RDW Standard Deviation 56.4 fL (36.4-46.3); Red Blood Count 3.07 M/uL (4.20-5.40); White Blood Count 4.57 K/ul (4.8-10.8)
[2023-05-21 06:46] LABS: BUN Creatinine Ratio 29.1 (10-20); Calcium 8.5 mg/dl (8.6-10.3); Creatinine Clr Calc Pharmacy 62.6 ml/min; Est GFR (African American) 87.9 ml/min; Est GFR (Non-African American) 75.8 ml/min
[2023-05-21] MEDS: APIXABAN 5 MG TABLET PO SCH (08:56)
[2023-05-21] MEDS: ATORVASTATIN 20 MG TAB PO SCH (08:57)
[2023-05-21] MEDS: tiZANidine HCL 4 MG TABLET PO SCH ×2 (08:57→13:23)
[2023-05-21] MEDS: MULTIVITAMIN TAB PO SCH (08:57)
[2023-05-21] MEDS: OXYBUTYNIN CHLORIDE XL 5 MG TABCR PO SCH (08:57)
[2023-05-21] MEDS: METOPROLOL TARTRATE 25 MG TAB PO SCH (08:57)
[2023-05-21] MEDS: ASPIRIN 81 MG ECTAB PO SCH (08:57)
[2023-05-21] MEDS: predniSONE 10 MG TABLET PO SCH (08:57)
[2023-05-21] MEDS: PANTOprazole 40 MG TAB PO SCH (08:58)
[2023-05-21] MEDS: CHOLECALCIFEROL 1,000 UNITS 25 MCG TAB PO SCH (08:58)
[2023-05-21] MEDS: ESCITALOPRAM OXALATE 20 MG TAB PO SCH (08:58)
--- NOTE | 2023-05-21 14:46 | Discharge Summary ---
Date of Service May 21, 2023 Admission HPI Per Admitting Provider Patient is a 72-year-old female with PMH CAD, paroxysmal atrial fibrillation, history of PE/DVT, s/p IVC filter, anticoagulated on Eliquis, chronic anemia, HTN, HLD, chronic pain, history of left breast cancer s/p surgery, radiation presented to ER with c/o chills. Patient states this morning woke up and was feeling very chilled. She did not take her temperature. Patient also reports feeling general malaise. She states she has been following with wound clinic for several weeks for right lateral ankle ulcer. Prior wound cultures negative for bacteria. Patient reports chronic surrounding redness and chronic bro wn/yellow discharge. Today she noted foul odor coming from wound and area feels more painful. Denies any noted increased erythema or increased discharge. Chronic BLE edema, denies any worsening. Also reports wound to left lower anterior leg. She states left lower leg with chronic erythema, denies diaphoresis, N/V/D/C, HOLT, dizziness, syncope, vision changes, neck pain, CP, SOB, orthopnea, palpitations, cough, sore throat, otalgia, rhinorrhea, abdominal pain, paresthesias, extremity weakness, increased extremity edema, rashes, dysuria, urinary frequency, urinary retention, hematuria. Admission Exam Per Admitting Provider General: no distress, WDWN Head: normocephalic, atraumatic Eyes: conjunctiva non-injected, anicteric ENT: normal inspection external ears, nose, mucous membranes moist Neck: supple, trachea midline Lungs: clear, no respiratory distress, no wheezing/rhonchi/rales CV: RRR, + murmur Abd: normal BS, soft, non-tender Ext: no cyanosis, no calf tenderness; BLE nonpitting edema. RLE: +ulcer right lateral ankle with foul odor. +diffuse erythema lower leg and foot. Mild warmth, +tenderness to palpation surrounding ulcer. LLE: +abrasion anterior lower leg. +diffuse erythema, leg is not warm and is non-tender to palpation. Neuro: A&O x 3, no focal deficits noted, normal affect, very talkative and pleasant Skin: warm, dry; extremities as above Principal Diagnosis Right lateral malleolar osteomyelitis, by MRI and pathology, bone culture with pansensitive Enterococcus faecalis Discharge Exam General: Sitting in chair, not in distress, on room air HEENT: EOMI, BENJAMÍN, MMM Chest: Clear breath sounds bilaterally, no wheezes or crackles CVS: Regular rate and rhythm, normal heart sounds, no murmur Abdomen: Soft, non tender, not distended, normal bowel sounds Neuro: Awake, alert, oriented, conversing well, non focal Extremities: Right ankle wound with wound VAC in place Psych: Anxious, appreciative Discharge Data Allergies Allergy/AdvReac Type Severity Reaction Status Date / Time No Known Allergies Allergy Verified 05/08/23 19:26 Consultations 05/08/23 18:55 ED Decision to Admit Stat 05/08/23 22:13 Consult Podiatry Routine 05/16/23 13:32 Consult Infectious Diseases Routine Procedures Performed Operation Date: 05/12/23 10:30 Actual Procedures p Right Fibula Excision Non-Viable Bone with Wound Vac(Right) - Andrea Velasco DPM, MS Ordered Studies 05/09/23 11:34 MR ankle RT wo/w con Urgent MRI Leg [MR lower leg LT wo/w con] Urgent 05/12/23 10:40 US arterial duplex LE BI Routine Hospital Course (1) Sepsis: (2) Ulcer of right ankle: (3) Osteomyelitis of ankle: 72-year-old female with PMH CAD, paroxysmal atrial fibrillation, history of PE/DVT, s/p IVC filter, anticoagulated on Eliquis, chronic anemia, HTN, HLD, chronic pain, history of left breast cancer s/p surgery, radiation, neurogenic bladder that self catheterizes presented to ER with c/o chills. Right lateral malleolar osteomyelitis, by MRI and pathology, bone culture with pansensitive Enterococcus faecalis In ER T: 37.6 C, P: 88, RR: 16, initial BP 101/60 dropped to 82/56. Was given 1500 mL NSS with repeat BP of 129/85 WBC: 16, lactate: 2.2, procalcitonin 3. UA unremarkable. Negative SARS-CoV-2 PCR CXR: No acute abnormalities and in particular no radiographic evidence of pneumonia. Right foot x-ray: No radiographic evidence of osteomyelitis. MRI right ankle show findings compatible with cellulitis with underlying osteomyelitis. MRI Left leg with findings as below 1. Moderate subcutaneous edema suggestive of cellulitis, lymphedema or venous stasis. 2. No fluid collection to suggest abscess. 3. Normal bone marrow signal. Bilateral lower extremity arterial duplex with no hemodynamically significant stenosis OR rt ankle clx 05/12 negative so far; pathology consistent with osteomyelitis OR rt fibula clx 05/12 with Enterococcus faecalis pansensitive Plan at discharge Seen by ID-recommended 6 weeks of IV ampicillin end date June 24, 2023; weekly CBC, BMP, CRP and ESR while on antibiotics; follow-up appointment with ID in [place] or [facility] 6 to 8 weeks from discharge Continue wound VAC and wound care per podiatry-wound VAC change 3 times per week and as needed, 125 mgHg continuous Unable to place PICC line due to poor vascular anatomy on right, unable to use left upper extremity due to prior breast surgery with lymph node removal. Mid line placed 05/18 Patient discharged to [facility]. (4) History of pulmonary embolism: History of PE/DVT. History of IVC filter. Chronically anticoagulated on Eliquis (5) Paroxysmal atrial fibrillation: On lopressor. Anticoagulated on Eliquis. PATs- significantly improved after increasing dose of lopressor. Continue increased dose of metoprolol and continue tele. Echo unremarkable (6) Multiple sclerosis: On chronic prednisone, Continue Aubagio, prednisone (7) CAD (coronary artery disease): History of nonobstructive CAD. Continue aspirin, statin (8) Chronic anemia: Hemoglobin stable more than 9. Recheck intermittently. (9) HX: breast cancer: History of left breast cancer s/p surgery, radiation DVT Prophylaxis-Eliquis Dispo-patient discharged to [facility]. Total Time Total Time Spent Total Time Spent (In Minutes): 45 Total Time Includes: Examination of the Patient, Discharge Planning, Medication Reconciliation, Communication With Other Providers and Other Discharge Plan Discharge Items Patient Disposition: Transfer Inpatient Rehab Fac Reason For Visit: SEPSIS Discharge Diagnosis: Right lateral malleolar osteomyelitis, by MRI and pathology, bone culture with pansensitive Enterococcus faecalis Activity: Resume your previous activity Non-emergency contact: Primary Care Provider Call non-emergency contact if: you have any medication questions and your symptoms worsen Follow-up/Referrals: Simi Hernandez CRNP [Primary Care Provider] - Isma Jacob MD [Physician] - (Date & Time 07/05/2023 11:00 AM Provider Isma Jacob MD Department Infectious Disease [facility] ) Andrea Velasco DPM, MS [Physician] - 06/02/23 10:00 am ( Foot/Ankle [place], Located at [facility] [address] [facility], [place] [address] Please take the elevator past the ER check-in to the 3rd Floor. Make a left off of the elevator, then turn right, and the office will be straight ahead.) Diet: Regular Addtl Attending Provider Instructions: You were admitted to the hospital with osteomyelitis of right foot. You are prescribed IV ampicillin till June 24, 2023. He will need weekly CBC, BMP, CRP and ESR every Tuesday while on treatment. The results of the test should be reviewed by the physician at the facility. Continue wound VAC and wound care per podiatry-wound VAC change 3 times per week and as needed, 125 mgHg continuous Follow-up appointment is set up with infectious disease in [place] in June. Follow-up with Dr. Velasco on June 02 at 10 AM. Pending Studies at Discharge: No Stand-Alone Forms: My [facility] Skilled Items Patient informed of condition?: Yes DNR: No Discharge Level of Care: Acute rehab Communicable Disease: No Discharge Prognosis: Stable Lines: Mid-Line Urinary Catheter: No Medications and DC Order Prescriptions: New ampicillin sodium 2 gram recon soln 2 g IV Q4H Qty: 10 0RF Continued prednisone 10 mg tablet 10 mg PO QAM oxybutynin chloride 15 mg tablet extended release 24hr 15 mg PO QAM cholecalciferol (vitamin D3) 1,000 unit capsule 1,000 units PO QAM escitalopram oxalate [Lexapro] 20 mg tablet 20 mg PO QAM teriflunomide [Aubagio] 14 mg tablet 14 mg PO QPM tizanidine [Zanaflex] 4 mg tablet 4 mg PO QID Rx Instructions: MUST BE NAME BRAND atorvastatin [Lipitor] 20 mg tablet 20 mg PO QAM doxycycline hyclate 50 mg capsule 50 mg PO Q OTHER DAY azelaic acid 15 % gel 1 applic TOPICAL DAILY multivitamin Tablet 1 tab PO DAILY aspirin 81 mg Tablet,Delayed Release (Dr/Ec) 81 mg PO DAILY acetaminophen 500 mg Tablet 500 mg PO Q6H PRN (Reason: Pain) melatonin 3 mg Tablet 3 mg PO HS PRN (Reason: Insomnia) omeprazole 40 mg capsule,delayed release(DR/EC) 40 mg PO QAM Eliquis 5 mg tablet 5 mg PO BID Qty: 60 0RF metoprolol tartrate 25 mg tablet 12.5 mg PO BID Discharge Orders: Discharge Order (Routine); Ordered 05/21/23 Ordered By: Viktor Bee Admission Data Admit Date/Time: 05/08/23 19:42 Attending Provider: Viktor Bee Admit Provider: Solange Wall Primary Care Provider: Simi Hernandez Other Providers: Solange Wall ; Andrea Velasco ; [facility] ; Erasmo Moore ; Isma Jacob ; Dmitri Morales I. ; Fran Porter II ; Abi Celestin ; Morales Childs ; José Miguel Noble ; Harriet Sierra ; Roland Bain Other Interventions: Discharge Summary Assessment (RN) Last Done: 05/21/23 14:44
== END 2023-05-21 16:01 | DRG 854 ==
LOC: ED 16:07 → 4W 19:42 → SUATTDRO 19:42

== ENCOUNTER 2023-09-17 11:26 | Inpatient (IN) ==
--- NOTE | 2023-09-17 12:14 | XRay Report ---
XR chest 1V portable CLINICAL HISTORY: Chest pain, nonspecific COMPARISON STUDY: Chest radiograph August 05, 2023. FINDINGS: Right shoulder arthroplasty is incidentally noted. There is no pneumothorax or pleural effu aicha. There is no evidence for pulmonary edema. No consolidation is identified. Hiatal hernia is inci dentally noted. Cardiomediastinal is stable. IMPRESSION: No acute cardiopulmonary findings. ACT 112: Negative or not required by law. Electronically signed by: Scar Holden M.D. 09/17/2023 12:13 PM
--- NOTE | 2023-09-17 13:03 | Ultrasound Report ---
LEFT LOWER EXTREMITY VENOUS DOPPLER CLINICAL HISTORY: Left lower extremity pain. Evaluate for deep venous thrombus. COMPARISON STUDY: Bilateral lower extremity venous Doppler ultrasound April 14, 2017. TECHNIQUE: Sonography of the deep venous system of the left lower extremity was performed. Compressi on and augmentation were evaluated. FINDINGS: Extensive deep venous thrombus within the left lower extremity is noted. There is deep veno us thrombus within the left common femoral, superficial femoral and popliteal veins. There is also de ep venous thrombus within the left calf veins. Left lower extremity edema is noted. IMPRESSION: Extensive deep venous thrombus within the left lower extremity. ACT 112: Negative or not required by law. Electronically signed by: Scar Holden M.D. 09/17/2023 1:02 PM
--- NOTE | 2023-09-17 13:11 | Ultrasound Report ---
LEFT LOWER EXTREMITY ARTERIAL DOPPLER ULTRASOUND CLINICAL HISTORY: purple foot COMPARISON STUDY: Bilateral lower extremity arterial Doppler ultrasound May 12, 2023. TECHNIQUE: Grayscale and color and duplex Doppler sonography of the arterial system of the left lower extremity was performed. FINDINGS: Mild atherosclerotic plaque within the left lower extremity was noted. No elevated velociti es were identified. Triphasic or biphasic flow within the left calf vessels was noted. The vessels we re patent. IMPRESSION: No evidence for a hemodynamically significant stenosis within left lower extremity. White nt vessels. Mild atherosclerotic plaque. ACT 112: Negative or not required by law. Electronically signed by: Scar Holden M.D. 09/17/2023 1:10 PM
[2023-09-17] MEDS ORDERED: Heparin IV Adult Wt-Based Standard w/ INITIAL Bolus Protocol IV STA (13:16)
[2023-09-17 13:22] LABS: Partial Thromboplastin Ratio 0.9; Partial Thromboplastin Time 24.5 Seconds (21.0-31.0); Prothrombin Time 11.1 Seconds (9.0-12.0)
[2023-09-17] MEDS ORDERED: Heparin IV Adult Wt-Based Standard w/ INITIAL Bolus Protocol IV SCH (13:30)
[2023-09-17] MEDS ORDERED: HEPARIN SOD (PORCINE) 1000 UNIT/ML IV ONE ×2 (13:33→13:45)
[2023-09-17] MEDS: HEPARIN SODIUM/DEXTROSE 25,000 UNITS/500 ML BAG IV SCH (13:59)
[2023-09-17 14:13] LABS: Basophils # (auto) 0.02 K/uL (0.00-0.20); Basophils % (auto) 0.2 %; Eosinophils # (auto) 0.01 K/uL (0.00-0.50); Eosinophils % (auto) 0.1 %; Hematocrit (blood only) 33.4 % (37.0-47.0); Hemoglobin 10.2 g/dl (12.0-16.0); Immature Granulocytes # (auto) 0.04 K/uL (0.01-0.20); Immature Granulocytes % (auto) 0.4 %; Lymphocytes # (auto) 0.34 K/uL (1.20-3.40); Lymphocytes % (auto) 3.3 %; Mean Corpuscular Hemoglobin 27.6 pg (25.0-34.0); Mean Corpuscular Hgb Conc 30.5 g/dL (32.0-36.0); Mean Corpuscular Volume 90.3 fL (80.0-100.0); Monocytes # (auto) 0.71 K/uL (0.11-0.59); Monocytes % (auto) 6.9 %; Neutrophils # (auto) 9.21 K/uL (1.40-6.50); Neutrophils % (auto) 89.1 %; Platelet Count 207 K/uL (130-400); RDW Coefficient of Variation 15.9 % (11.5-14.5); White Blood Count 10.33 K/ul (4.8-10.8)
--- NOTE | 2023-09-17 14:13 | History & Physical Report ---
Date of Service September 17, 2023 Assessment & Plan (1) Acute deep vein thrombosis of left lower extremity: Plan: As seen on confirming us lower extremity performed today. Add CHOCO hose to help with post-thrombotic syndrome. Out of apixaban at home, ensure this is refilled. Continue with heparin until pain and swelling starts to improve prior to switching back to PO apixaban. IVC filter is still in place from 6 years ago. No clinical evidence of PE at this time. (2) Chronic refractory osteomyelitis of ankle: Plan: Recently she was ordered a right ankle MRI by her ID specialist. This DVT may certainly have been provoked by an underlying infection here, along with sedentary behavior, so will order this now. Cont once daily Augmentin. (3) Chronic ulcer of right foot: Plan: chronic, appears to be doing well. She follows with the wound clinic locally. Wound vac still in place but this appears to have popped off at home. RN to help reattach. WOCN consult placed. (4) HX: breast cancer: Plan: noted limb restriction on the left arm (5) Chronic anemia: Plan: chronic, stable. Cont to monitor. Denies any issues with bleeding. (6) Paroxysmal atrial fibrillation: Plan: Currently in sinus rhythm. Hold apixaban while on heparin drip. Cont metoprolol per home regimen. (7) Hypertension: Plan: chronic, stable. Cont current therapy. (8) Multiple sclerosis: Plan: chronic, stable. She is very sedentary per her report. Chronic ongoing baclofen pump and on scheduled tizanidine. continue Aubagio per home regimen, also. Neurogenic bladder ongoing. She typically self-catheterizes during the day then uses a salcedo catheter at night. Will place a urinary catheter for now. Cont Ditropan per home regimen. (9) CAD (coronary artery disease): Plan: chronic, stable. Cont medications per home regimen. (10) Neurogenic bladder: Plan: chronic, plan for salcedo placement as noted above. (11) Presence of intrathecal pump: Plan: Reports no longer taking intermittent baclofen. Cont scheduled tizanidine per home regimen. (12) S/P IVC filter: Plan: as noted above. DVT proph: heparin drip Full Code Dispo- to telemetry I spent a total [id number] coordinating, documenting, and providing care for this patient excluding time spent in the performance of separately billed services. [facility] History of Present Illness Chief Complaint: swelling lower extremity Primary Care Provider: KEVIN Lema 72 yo F presents with acute LLE swelling since yesterday. Off her apixaban for two weeks, now presenting with large LLE DVT. Started on heparin in the ER. Continues on Augmentin for chronic right ankle osteomyelitis per Dr. Sierra with [facility]. Off apixaban for two weeks / being out of a refill. Swelling in the leg, since yesterday Denies significant pain, feels like "I'm carrying around a weight" Denies OTC meds No chest pain, SOB, no heart palpations Denies fevers, but states "I don't know, I have felt cold" good appetite no issues with bleeding Daughter, Rea, is present at the bedside and assists with the history. Allergies Allergy/AdvReac Type Severity Reaction Status Date / Time No Known Allergies Allergy Verified 09/14/23 13:17 Home Medications Medication Instructions Recorded Confirmed Type cholecalciferol (vitamin D3) 25 1,000 units PO QAM 09/18/18 09/17/23 History mcg (1,000 unit) capsule escitalopram oxalate 20 mg tablet 20 mg PO QAM 09/18/18 09/17/23 History (Lexapro) oxybutynin chloride 15 mg 15 mg PO QAM 09/18/18 09/17/23 History tablet,extended release 24 hr prednisone 10 mg tablet 10 mg PO QAM 09/18/18 09/17/23 History omeprazole 40 mg capsule,delayed 40 mg PO QAM 07/06/21 09/17/23 History release apixaban 5 mg tablet (Eliquis) 5 mg PO BID #60 tabs 07/09/21 09/17/23 Rx teriflunomide 14 mg tablet 14 mg PO QPM 05/13/22 09/17/23 History (Aubagio) tizanidine 4 mg tablet (Zanaflex) 4 mg PO QID 05/13/22 09/17/23 History doxycycline hyclate 50 mg capsule 50 mg PO Q OTHER DAY Rosacea 08/10/22 09/17/23 History azelaic acid 15 % topical gel 1 applic topical DAILY 10/21/22 09/17/23 History acetaminophen 500 mg tablet 500 mg PO Q6H PRN Pain 03/05/23 09/17/23 History melatonin 3 mg tablet 3 mg PO HS PRN Insomnia 03/05/23 09/17/23 History multivitamin 1 tab PO DAILY 03/05/23 09/17/23 History metoprolol tartrate 25 mg tablet 25 mg PO DAILY 05/08/23 09/17/23 History atorvastatin 20 mg tablet (Lipitor) 20 mg PO QAM 08/04/23 09/17/23 History Baclofen Pump 0 mg SC DIRECTED 08/05/23 09/17/23 History amoxicillin 875 mg-potassium 1 tab PO DAILY 08/11/23 09/17/23 History clavulanate 125 mg tablet Past Med/Surg History Medical History Anemia CAD (coronary artery disease) Non-obstructive per 06/2021 cardiac cath Fever GERD (gastroesophageal reflux disease) controlled, stable per pt History of blood transfusion History of DVT (deep vein thrombosis) ~6 yrs ago History of GI bleed Upper GIB (2019) felt 2/2 NSAID use History of non-ST elevation myocardial infarction (NSTEMI) 06/2021 (had heart cath, no stents) History of pulmonary embolism ~ 6 yrs ago, IVC filter still in place History of recent hospitalization 09/2022 [facility] - sepsis History of supraventricular tachycardia Hx of gastric ulcer 02/2021 HX: breast cancer Left breast cancer with surgery and chemo/radiation-left arm restriction Hypertension controlled, stable per pt Limb alert care status left arm Multiple sclerosis Follows with Dr. Walker/[facility] Stable Neurogenic bladder SELF CATH 2-3 X'S PER DAY *RECENT HOSPITALIZATION FOR UTI Osteoarthritis of right shoulder Osteoporosis Raynaud disease Surgical History H/O left mastectomy with lymph node removal>LEFT ARM RESTRICTION History of appendectomy History of cardiac cath Cardiac cath (07/06/21; [facility]) > Right dominant coronary system. No evidence of aortic stenosis. Normal left ventricular filling pressures. Nonobstructive disease involving the ostial LAD. No evidence of acute coronary syndrome. Approximately 50% ostial stenosis of the LAD. There was some very mild disease at the ostium of the left circumflex. Recommendations: Medical management. History of colonoscopy History of esophagogastroduodenoscopy (EGD) History of open reduction and internal fixation (ORIF) procedure "left hip" History of tooth extraction Presence of intrathecal pump baclofen pump in place--status post revision/replacement 08/10/2022 S/P IVC filter S/P partial hysterectomy S/p reverse total shoulder arthroplasty right: 05/25/22 LMA#4. No postop issues per anesthesia progress note. Family History Mother Heart disorder Other No family history of adverse response to anesthesia Social History Smoking Status: Never smoker Tobacco Type: Cigarettes packs per day: 1; Cigarettes Per Day: stopped in 1977; Second Hand Exposure: No; Do You Dip or Chew Tobacco: No; Hx Alcohol Use: No Hx Substance Use: No Preferred Language: Mohawk Communication Ability: Effective Visual Impairment: Limited Hearing Ability: Use of Hearing Aid Mica Washer Gluer Required: No Beliefs That Will Affect Care: None marital status: / Current Living Situation: Alone Current Living Situation Comment: family helps pt and [facility] current occupational status: retired How many Children do You have: 3 Feels Safe at Home: Yes Childhood Exposure to Second-Hand Smoke: Yes Diet: regular caffeine: Yes Assistive Devices: Walker, Wheelchair and Other Physical Exam Physical Exam: CONSTITUTIONAL: WNWD, vitals as above, generally well-appearing. NAD EYES: pupils are round and equal bilaterally, normal conjunctivae, no scleral icterus ENT: external ear and nose normal, MMM NECK: trachea midline RESPIRATORY: clear to auscultation bilaterally, no crackles, rales or wheezes, normal respiratory effort CARDIOVASCULAR: regular rate and rhythm,S1/2 heard with 3/6 MARIN heard across precordium, no gallops or rubs, no JVD, 3+ peripheral edema in the LLE and 1+ peripheral edema in the RLE, both below the knee. CHEST: inspection of chest was normal GASTROINTESTINAL: soft, nontender, ND, no guarding MUSCULOSKELETAL: strength 5/5 throughout, head is normocephalic and atraumatic SKIN: warm and dry NEUROLOGIC: CN 2-12 grossly intact, no sensory deficit, normal cognition, normal speech, no tremor PSYCHIATRIC: alert cooperative and oriented to person, place and time. Euthymic mood, makes good eye contact, language grossly intact, recent and remote memory grossly intact. Results & Data Results & Data Vital Signs (Past 12 Hours) Vital Signs Temp Pulse Pulse Resp BP BP Pulse Ox 09/17/23 11:40 82 18 95/61 L 97 09/17/23 11:50 84 18 94 09/17/23 11:29 36.2 C L 79 20 105/71 96 O2 Del Method 09/17/23 11:40 Room Air 09/17/23 11:50 Room Air 09/17/23 11:29 Room Air Laboratory Results Short CBC 09/17/23 Range/Units 13:45 WBC 10.33 (4.8-10.8) K/ul Hgb 10.2 L (12.0-16.0) g/dl Hct 33.4 L (37.0-47.0) % Plt Count 207 (130-400) K/uL Diagnostic Findings Chest X-Ray 09/17/23 11:50 XR chest 1V portable CLINICAL HISTORY: Chest pain, nonspecific COMPARISON STUDY: Chest radiograph August 05, 2023. FINDINGS: Right shoulder arthroplasty is incidentally noted. There is no pneumothorax or pleural effusion. There is no evidence for pulmonary edema. No consolidation is identified. Hiatal hernia is incidentally noted. Cardiomediastinal is stable. IMPRESSION: No acute cardiopulmonary findings. ACT 112: Negative or not required by law. Electronically signed by: Scar Holden M.D. 09/17/2023 12:13 PM Duplex Scan Lower Extremity Artery 09/17/23 11:50 LEFT LOWER EXTREMITY ARTERIAL DOPPLER ULTRASOUND CLINICAL HISTORY: purple foot COMPARISON STUDY: Bilateral lower extremity arterial Doppler ultrasound May 12, 2023. TECHNIQUE: Grayscale and color and duplex Doppler sonography of the arterial system of the left lower extremity was performed. FINDINGS: Mild atherosclerotic plaque within the left lower extremity was noted. No elevated velocities were identified. Triphasic or biphasic flow within the left calf vessels was noted. The vessels were patent. IMPRESSION: No evidence for a hemodynamically significant stenosis within left lower extremity. Patent vessels. Mild atherosclerotic plaque. ACT 112: Negative or not required by law. Electronically signed by: Scar Holden M.D. 09/17/2023 1:10 PM Venous Doppler Study 09/17/23 11:51 LEFT LOWER EXTREMITY VENOUS DOPPLER CLINICAL HISTORY: Left lower extremity pain. Evaluate for deep venous thrombus. COMPARISON STUDY: Bilateral lower extremity venous Doppler ultrasound April 14, 2017. TECHNIQUE: Sonography of the deep venous system of the left lower extremity was performed. Compression and augmentation were evaluated. FINDINGS: Extensive deep venous thrombus within the left lower extremity is noted. There is deep venous thrombus within the left common femoral, superficial femoral and popliteal veins. There is also deep venous thrombus within the left calf veins. Left lower extremity edema is noted. IMPRESSION: Extensive deep venous thrombus within the left lower extremity. ACT 112: Negative or not required by law. Electronically signed by: Scar Holden M.D. 09/17/2023 1:02 PM Medications Administered Current Inpatient Medications Heparin Sodium/Dextrose (Heparin Sodium/Dextrose) 25,000 units in 500 mls @ 21 mls/hr IV .[id number] [facility]; Protocol Stop: 10/17/23 13:44 Last Admin: 09/17/23 13:59 Dose: 1,050 units/hr, 21 mls/hr Code Status & VTE Plan VTE Prophylaxis Plan VTE Prophylaxis will be ordered: Yes (3) Chronic ulcer of right foot Non-pressure ulcer stage: unspecified non-pressure ulcer stage Qualified Code(s): L97.519 - Non-pressure chronic ulcer of other part of right foot with unspecified severity
[2023-09-17 14:24] LABS: BUN Creatinine Ratio 32.1 (10-20); Calcium 9.3 mg/dl (8.6-10.3); Creatinine Clr Calc Pharmacy 57.3 ml/min; Est GFR (African American) 81.6 ml/min; Est GFR (Non-African American) 70.4 ml/min
[2023-09-17 14:31] LABS: Troponin I High Sensitivity 7.3 pg/ml (0-14)
--- NOTE | 2023-09-17 16:03 | Emergency Department Note ---
History of Present Illness General Chief complaint: Swelling/Edema to Extremity Stated complaint: LEFT LEG SWOLLEN, WARM, HASNT TAKE BLOOD THINNERS Time Seen by Provider: 09/17/23 11:35 History of Present Illness Provider complaint: left lower extremity pain Onset (ago): day(s) 2 Location: lower extremity and left 72-year-old female presents emergency department for left lower extremity pain. Patient states she woke up yesterday and noticed that her left lower extremity was increasingly painful swollen and look like it was a bluish-purple color. Patient denies any chest pain or difficulty breathing. Patient states that she has had her feet turn bluish-purple color in the past. Patient reports that she is not taking her Eliquis in the last 2 weeks. Home Medications Medication Instructions Recorded Confirmed Type cholecalciferol (vitamin D3) 25 1,000 units PO QAM 09/18/18 09/17/23 History mcg (1,000 unit) capsule escitalopram oxalate 20 mg tablet 20 mg PO QAM 09/18/18 09/17/23 History (Lexapro) oxybutynin chloride 15 mg 15 mg PO QAM 09/18/18 09/17/23 History tablet,extended release 24 hr prednisone 10 mg tablet 10 mg PO QAM 09/18/18 09/17/23 History omeprazole 40 mg capsule,delayed 40 mg PO QAM 07/06/21 09/17/23 History release apixaban 5 mg tablet (Eliquis) 5 mg PO BID #60 tabs 07/09/21 09/17/23 Rx teriflunomide 14 mg tablet 14 mg PO QPM 05/13/22 09/17/23 History (Aubagio) tizanidine 4 mg tablet (Zanaflex) 4 mg PO QID 05/13/22 09/17/23 History doxycycline hyclate 50 mg capsule 50 mg PO Q OTHER DAY Rosacea 08/10/22 09/17/23 History azelaic acid 15 % topical gel 1 applic topical DAILY 10/21/22 09/17/23 History acetaminophen 500 mg tablet 500 mg PO Q6H PRN Pain 03/05/23 09/17/23 History melatonin 3 mg tablet 3 mg PO HS PRN Insomnia 03/05/23 09/17/23 History multivitamin 1 tab PO DAILY 03/05/23 09/17/23 History metoprolol tartrate 25 mg tablet 25 mg PO DAILY 05/08/23 09/17/23 History atorvastatin 20 mg tablet (Lipitor) 20 mg PO QAM 08/04/23 09/17/23 History Baclofen Pump 0 mg SC DIRECTED 08/05/23 09/17/23 History amoxicillin 875 mg-potassium 1 tab PO DAILY 08/11/23 09/17/23 History clavulanate 125 mg tablet Allergies Allergy/AdvReac Type Severity Reaction Status Date / Time No Known Allergies Allergy Verified 09/14/23 13:17 Past Med/Surg History Medical History Anemia CAD (coronary artery disease) Non-obstructive per 06/2021 cardiac cath Fever GERD (gastroesophageal reflux disease) controlled, stable per pt History of blood transfusion History of DVT (deep vein thrombosis) ~6 yrs ago History of GI bleed Upper GIB (2019) felt 2/2 NSAID use History of non-ST elevation myocardial infarction (NSTEMI) 06/2021 (had heart cath, no stents) History of pulmonary embolism ~ 6 yrs ago, IVC filter still in place History of recent hospitalization 09/2022 [facility] - sepsis History of supraventricular tachycardia Hx of gastric ulcer 02/2021 HX: breast cancer Left breast cancer with surgery and chemo/radiation-left arm restriction Hypertension controlled, stable per pt Limb alert care status left arm Multiple sclerosis Follows with Dr. Walker/[facility] Stable Neurogenic bladder SELF CATH 2-3 X'S PER DAY *RECENT HOSPITALIZATION FOR UTI Osteoarthritis of right shoulder Osteoporosis Raynaud disease Surgical History H/O left mastectomy with lymph node removal>LEFT ARM RESTRICTION History of appendectomy History of cardiac cath Cardiac cath (07/06/21; [facility]) > Right dominant coronary system. No evidence of aortic stenosis. Normal left ventricular filling pressures. Nonobstructive disease involving the ostial LAD. No evidence of acute coronary syndrome. Approximately 50% ostial stenosis of the LAD. There was some very mild disease at the ostium of the left circumflex. Recommendations: Medical management. History of colonoscopy History of esophagogastroduodenoscopy (EGD) History of open reduction and internal fixation (ORIF) procedure "left hip" History of tooth extraction Presence of intrathecal pump baclofen pump in place--status post revision/replacement 08/10/2022 S/P IVC filter S/P partial hysterectomy S/p reverse total shoulder arthroplasty right: 05/25/22 LMA#4. No postop issues per anesthesia progress note. Family History Mother Heart disorder Other No family history of adverse response to anesthesia Social History Smoking Status: Never smoker Tobacco Type: Cigarettes packs per day: 1; Cigarettes Per Day: stopped in 1977; Second Hand Exposure: No; Do You Dip or Chew Tobacco: No; Hx Alcohol Use: No Hx Substance Use: No Preferred Language: Urdu Communication Ability: Effective Visual Impairment: Limited Hearing Ability: Use of Hearing Aid [employer] Required: No Beliefs That Will Affect Care: None marital status: / Current Living Situation: Alone Current Living Situation Comment: family helps pt and [facility] current occupational status: retired How many Children do You have: 3 Feels Safe at Home: Yes Childhood Exposure to Second-Hand Smoke: Yes Diet: regular caffeine: Yes Assistive Devices: Walker, Wheelchair and Other Physical Exam Vital Signs Vital Signs - 24 hr 09/17/23 11:29 09/17/23 11:50 09/17/23 11:40 Temperature 36.2 C L Temperature Source Temporal Artery Scan Pulse Rate 79 84 Pulse Rate [Left Finger] 82 Pulse Rhythm Regular Regular Pulse Rhythm [Left Finger] Regular Pulse Strength Normal Pulse Strength [Left Finger] Normal Respiratory Rate 20 18 18 Respiratory Effort / Characteristics Non-Labored Spontaneous Non-Labored Spontaneous Respiratory Depth Normal Normal Respiratory Pattern Regular Regular Blood Pressure 105/71 Blood Pressure [Right Arm] 95/61 L Blood Pressure Mean 82 Blood Pressure Mean [Right Arm] 72 Blood Pressure Position Sitting Blood Pressure Position [Right Arm] Sitting Pulse Oximetry 96 94 97 Oxygen Delivery Method Room Air Room Air Room Air Sepsis Recent Fever Within 48 Hours No Sepsis New/Unexplained Change in Mental Status No Sepsis Action Taken by Nursing No Action Required 09/17/23 13:26 09/17/23 14:00 Temperature Temperature Source Pulse Rate Pulse Rate [Left Finger] 88 81 Pulse Rhythm Pulse Rhythm [Left Finger] Regular Pulse Strength Pulse Strength [Left Finger] Normal Respiratory Rate 18 18 Respiratory Effort / Characteristics Non-Labored Spontaneous Non-Labored Spontaneous Respiratory Depth Normal Normal Respiratory Pattern Regular Regular Blood Pressure Blood Pressure [Right Arm] 117/83 113/78 Blood Pressure Mean Blood Pressure Mean [Right Arm] 94 89 Blood Pressure Position Blood Pressure Position [Right Arm] Sitting Sitting Pulse Oximetry 96 95 Oxygen Delivery Method Room Air Room Air Sepsis Recent Fever Within 48 Hours Sepsis New/Unexplained Change in Mental Status Sepsis Action Taken by Nursing Physical Exam GENERAL: She is oriented to person, place, and time. She appears well-developed and well-nourished. She does not appear distressed. HENT: Exam performed. -Head: Normocephalic and atraumatic. -Right Ear: External ear normal. No mastoid erythema -Left Ear: External ear normal. No mastoid erythema -Mouth/Throat: The oropharynx is clear and moist. No trismus in the jaw. No dental abscesses or uvula swelling. No oropharyngeal exudate or tonsillar abscesses. EYES: Conjunctivae and EOM are normal. Pupils are equal, round, and reactive to light. Right eye exhibits no discharge. Left eye exhibits no discharge. No scleral icterus. NECK: Normal range of motion. Neck supple. No JVD present. CV: Normal rate, regular rhythm, normal heart sounds and intact distal pulses. T here is no peripheral edema. Palpable radial pulses bue. PULM/CHEST: Effort normal and breath sounds normal. No respiratory distress. No stridor. She has no wheezes. She has no rales. ABD: The abdomen is soft. She has no distension. No mass is present. There is no tenderness. There is no rebound, no guarding, no Thomas's sign and no tenderness at McBurney's point. Rovsig negative MUSC/SKEL: Bilateral lower extremities are not cold to touch. Swelling of the bilateral lower extremities with the left lower extremity greater swelling than the right lower extremity. There is discoloration to the bilateral lower extremities however significant Young severe purpleish bluish discoloration of the left lower extremity. Right lower extremity has wound VAC on it. NEURO: She is alert and oriented to person, place, and time. She has normal strength. No cranial nerve deficit or sensory deficit. Coordination and gait normal. GCS eye subscore is 4. GCS verbal subscore is 5. GCS motor subscore is 6. Cerebellar tests wnl. VASCULAR: Palpable femoral arteries bilaterally. Signal present in the bilateral DP and PT pulses bilaterally. Course Course 1135: The patient was evaluated in room C8. A complete history and physical exam was performed Administered Medications Heparin Sodium/Dextrose (Heparin Sodium/Dextrose) 25,000 units in 500 mls @ 21 mls/hr IV .[id number] [facility]; Protocol Stop: 10/17/23 13:44 Last Admin: 09/17/23 13:59 Dose: 1,050 units/hr, 21 mls/hr Documented By: RONEL Co-signed By: YANCI Discontinued Medications Heparin Sodium (Porcine) (Heparin Sod (Porcine) 1000 Unit/Ml) 5,000 units IV NOW ONE Stop: 09/17/23 13:46 Last Admin: 09/17/23 13:58 Dose: 5,000 units Documented By: RONEL Co-signed By: YANCI Critical Care Time Critical Care Time: Yes Total Critical Care Time: 42 I have personally spent greater than 42 minutes of critical care time in the direct management of this patient. This includes bedside care, interpretation of diagnostic studies, and testing, discussion with consultants, patient, and family members, and other required patient management activities. This 42 minutes is in excess of all separately billable procedures. Medical Decision Making Medical Records Attestation: I reviewed the patient's medical records. External medical records reviewed. Patient had a duplex lower extremity artery scan done in April 2023 which showed no hemodynamically significant stenosis Laboratory Data Attestation: I reviewed the patient's lab results. 09/17/23 13:45 09/17/23 13:45 Lab Results 09/17/23 09/17/23 09/17/23 Range/Units 12:27 13:45 13:45 WBC 10.33 (4.8-10.8) K/ul RBC 3.70 L (4.20-5.40) M/uL Hgb 10.2 L (12.0-16.0) g/dl Hct 33.4 L (37.0-47.0) % MCV 90.3 (80.0-100.0) fL MCH 27.6 (25.0-34.0) pg MCHC 30.5 L (32.0-36.0) g/dL RDW Std Deviation 53.0 H (36.4-46.3) fL RDW Coeff of Tiffanie 15.9 H (11.5-14.5) % Plt Count 207 (130-400) K/uL MPV 11.0 (9.4-12.4) fL Immature Gran % (Auto) 0.4 % Neut % (Auto) 89.1 % Lymph % (Auto) 3.3 % Mills % (Auto) 6.9 % Eos % (Auto) 0.1 % Baso % (Auto) 0.2 % Neut # (Auto) 9.21 H (1.40-6.50) K/uL Lymph # (Auto) 0.34 L (1.20-3.40) K/uL Mills # (Auto) 0.71 H (0.11-0.59) K/uL Eos # (Auto) 0.01 (0.00-0.50) K/uL Baso # (Auto) 0.02 (0.00-0.20) K/uL Immature Gran # (Auto) 0.04 (0.01-0.20) K/uL PT 11.1 (9.0-12.0) Seconds INR 1.0 (0.9-1.1) APTT 24.5 (21.0-31.0) Seconds PTT Ratio 0.9 Sodium 138 (136-145) mmol/L Potassium 4.0 (3.5-5.1) mmol/L Chloride 103 (98-107) mmol/L Carbon Dioxide 28 (21-32) mmol/L Anion Gap 7 (3-11) BUN 27 H (6-23) mg/dl Creatinine 0.84 (0.6-1.2) mg/dl Est Cr Clr Drug Dosing 57.3 ml/min Est GFR ( Amer) 81.6 ml/min Est GFR (Non-Af Amer) 70.4 ml/min BUN/Creatinine Ratio 32.1 H (10-20) Glucose 94 (70-99(Fasting)) mg/dl Calcium 9.3 (8.6-10.3) mg/dl Troponin I High Sens 7.3 (0-14) pg/ml Lipase 17 (11-82) U/L Imaging Data Attestation: I personally reviewed and interpreted this imaging study as follows: My Impression: Chest x-ray negative. Airway clear. No pneumothorax. No consolidation. No cardiomegaly or cephalization.. No free air under the diaphragm. No fractures of the skeletal structures. Radiologist's Impression: Chest X-Ray 09/17/23 11:50 XR chest 1V portable CLINICAL HISTORY: Chest pain, nonspecific COMPARISON STUDY: Chest radiograph August 05, 2023. FINDINGS: Right shoulder arthroplasty is incidentally noted. There is no pneumothorax or pleural effusion. There is no evidence for pulmonary edema. No consolidation is identified. Hiatal hernia is incidentally noted. Cardiomediastinal is stable. IMPRESSION: No acute cardiopulmonary findings. ACT 112: Negative or not required by law. Electronically signed by: Scar Holden M.D. 09/17/2023 12:13 PM Duplex Scan Lower Extremity Artery 09/17/23 11:50 LEFT LOWER EXTREMITY ARTERIAL DOPPLER ULTRASOUND CLINICAL HISTORY: purple foot COMPARISON STUDY: Bilateral lower extremity arterial Doppler ultrasound May 12, 2023. TECHNIQUE: Grayscale and color and duplex Doppler sonography of the arterial system of the left lower extremity was performed. FINDINGS: Mild atherosclerotic plaque within the left lower extremity was noted. No elevated velocities were identified. Triphasic or biphasic flow within the left calf vessels was noted. The vessels were patent. IMPRESSION: No evidence for a hemodynamically significant stenosis within left lower extremity. Patent vessels. Mild atherosclerotic plaque. ACT 112: Negative or not required by law. Electronically signed by: Scar Holden M.D. 09/17/2023 1:10 PM Venous Doppler Study 09/17/23 11:51 LEFT LOWER EXTREMITY VENOUS DOPPLER CLINICAL HISTORY: Left lower extremity pain. Evaluate for deep venous thrombus. COMPARISON STUDY: Bilateral lower extremity venous Doppler ultrasound April 14, 2017. TECHNIQUE: Sonography of the deep venous system of the left lower extremity was performed. Compression and augmentation were evaluated. FINDINGS: Extensive deep venous thrombus within the left lower extremity is noted. There is deep venous thrombus within the left common femoral, superficial femoral and popliteal veins. There is also deep venous thrombus within the left calf veins. Left lower extremity edema is noted. IMPRESSION: Extensive deep venous thrombus within the left lower extremity. ACT 112: Negative or not required by law. Electronically signed by: Scar Holden M.D. 09/17/2023 1:02 PM ECG Data Attestation: I personally reviewed and interpreted this ECG as follows: Rate (beats per minute): 79 Rhythm: + normal sinus ECG Intervals/blocks: + Normal VT and + Normal QT-c ECG ST segments: + Normal ST segments Additional Comments: QRS 68 MDM Narrative Cardiac monitoring: An order was placed for continuous cardiac monitoring. The monitor shows a rate of 80 with sinus rhythm interpreted by me Vital signs stable. Labs within normal limits. Imaging shows a large left- sided DVT. Arterial scan of the left lower extremity shows no hemodynamically significant stenosis within the left lower extremities. Discussed the case with Dr. Santos and both she and I feel that the patient should be admitted for heparinization given her large DVT and history. Patient will be admitted to Dr. Wall's team. Impression & Plan Acute deep vein thrombosis of left lower extremity Discharge Plan Visit Data Chief Complaint: Swelling/Edema to Extremity Stated Complaint: LEFT LEG SWOLLEN, WARM, HASNT TAKE BLOOD THINNERS ED Provider: Asad Johnson Discharge Problem: Acute deep vein thrombosis of left lower extremity Patient Disposition: Admitted As Inpatient Discharge Instructions Interventions: ED Discharge Assessment Last Done: 09/17/23 15:41 Prescriptions Prescriptions: No Action prednisone 10 mg tablet 10 mg PO QAM oxybutynin chloride 15 mg tablet extended release 24hr 15 mg PO QAM cholecalciferol (vitamin D3) 1,000 unit capsule 1,000 units PO QAM escitalopram oxalate [Lexapro] 20 mg tablet 20 mg PO QAM teriflunomide [Aubagio] 14 mg tablet 14 mg PO QPM tizanidine [Zanaflex] 4 mg tablet 4 mg PO QID Rx Instructions: MUST BE NAME BRAND doxycycline hyclate 50 mg capsule 50 mg PO Q OTHER DAY atorvastatin [Lipitor] 20 mg tablet 20 mg PO QAM azelaic acid 15 % gel 1 applic TOPICAL DAILY multivitamin Tablet 1 tab PO DAILY acetaminophen 500 mg Tablet 500 mg PO Q6H PRN (Reason: Pain) melatonin 3 mg Tablet 3 mg PO HS PRN (Reason: Insomnia) omeprazole 40 mg capsule,delayed release(DR/EC) 40 mg PO QAM Eliquis 5 mg tablet 5 mg PO BID Qty: 60 0RF metoprolol tartrate 25 mg tablet 25 mg PO DAILY Baclofen Pump 0 mg SC DIRECTED Rx Instructions: continous amoxicillin-pot clavulanate 875-125 mg tablet 1 tab PO DAILY
[2023-09-17] MEDS ORDERED: BACLOFEN PAIN PUMP IT SCH (16:33)
[2023-09-17] MEDS ORDERED: POLYETHYLENE (MIRALAX) 17 GM PACK PO PRN (16:33)
[2023-09-17] MEDS: predniSONE 10 MG TABLET PO SCH (18:32)
[2023-09-17] MEDS: tiZANidine HCL 4 MG TABLET PO SCH ×2 (18:32→20:37)
[2023-09-17] MEDS: AUBAGIO 14 MG PO SCH (20:40)
[2023-09-17 21:27] LABS: Partial Thromboplastin Ratio 3.1
[2023-09-17 21:41] LABS: Partial Thromboplastin Time 88.5 Seconds (21.0-31.0)
[2023-09-18 06:17] LABS: Calcium 8.3 mg/dl (8.6-10.3); Potassium 4.3 mmol/L (3.5-5.1)
[2023-09-18 06:22] LABS: BUN Creatinine Ratio 30.1 (10-20); Est GFR (African American) 82.8 ml/min; Est GFR (Non-African American) 71.4 ml/min
[2023-09-18 06:53] LABS: Partial Thromboplastin Ratio 1.7
[2023-09-18 06:57] LABS: Partial Thromboplastin Time 48.3 Seconds (21.0-31.0)
[2023-09-18 07:27] LABS: Hematocrit (blood only) 31.4 % (37.0-47.0); Hemoglobin 9.7 g/dl (12.0-16.0); Mean Corpuscular Hemoglobin 27.6 pg (25.0-34.0); Mean Corpuscular Hgb Conc 30.9 g/dL (32.0-36.0); Mean Corpuscular Volume 89.2 fL (80.0-100.0); Mean Platelet Volume 10.9 fL (9.4-12.4); Platelet Count 186 K/uL (130-400); RDW Coefficient of Variation 16.2 % (11.5-14.5); RDW Standard Deviation 52.6 fL (36.4-46.3); Red Blood Count 3.52 M/uL (4.20-5.40); White Blood Count 5.18 K/ul (4.8-10.8)
--- NOTE | 2023-09-18 08:17 | Hospitalist Progress Note ---
Date of Service September 18, 2023 Assessment & Plan (1) Acute deep vein thrombosis of left lower extremity: Plan: Continue heparin drip. Add CHOCO hose to help with post-thrombotic syndrome. Out of apixaban at home, ensure this is refilled prior to discharge. Continue with heparin until pain and swelling starts to improve prior to switching back to PO apixaban. IVC filter is still in place from 6 years ago. No clinical evidence of PE at this time. (2) Chronic refractory osteomyelitis of ankle: Plan: Recently she was ordered a right ankle MRI by her ID specialist. This DVT may certainly have been provoked by an underlying infection here, along with sedentary behavior, so will order this now. Cont once daily Augmentin. (3) Chronic ulcer of right foot: Plan: chronic, appears to be doing well. She follows with the wound clinic locally. Wound vac still in place but this appears to have popped off at home. RN to sakshi dunne. WOCN consult placed. (4) HX: breast cancer: Plan: noted limb restriction on the left arm (5) Chronic anemia: Plan: chronic, stable. Cont to monitor. Denies any issues with bleeding. (6) Paroxysmal atrial fibrillation: Plan: Currently in sinus rhythm. Hold apixaban while on heparin drip. Cont metoprolol per home regimen. (7) Hypertension: Plan: chronic, stable. Cont current therapy. (8) Multiple sclerosis: Plan: chronic, stable. She is very sedentary per her report. Chronic ongoing baclofen pump and on scheduled tizanidine. continue Aubagio per home regimen, also. Neurogenic bladder ongoing. She typically self-catheterizes during the day then uses a salcedo catheter at night. Will place a urinary catheter for now. Cont Ditropan per home regimen. (9) CAD (coronary artery disease): Plan: chronic, stable. Cont medications per home regimen. (10) Neurogenic bladder: Plan: chronic, intermittent catheterization at home. Patient requested to place Salcedo while she was admitted for comfort. Remove prior to discharge. (11) Presence of intrathecal pump: Plan: Reports no longer taking intermittent baclofen. Cont scheduled tizanidine per home regimen. (12) S/P IVC filter: Plan: as noted above. DVT proph: heparin drip Full Code Dispo-telemetry I spent a total [id number] coordinating, documenting, and providing care for this patient excluding time spent in the performance of separately billed services. Solange Wall DO [facility] Admission and Anticipated Discharge Date Admission Date: September 17, 2023 Subjective 72 year-old female with recent history of noncompliance with apixaban presents with acute left lower extremity DVT. Patient denies any pain in her extremities today. She reports the swelling has improved. Discoloration on the left lower extremity is still present. Setting her up for ankle MRI on the right to rule out active osteomyelitis per prehospital plan from [facility] ID. CHOCO hose were not placed last night, discussed with nurse to place these now. Patient otherwise tolerating p.o., afebrile and feeling well. Physical Exam Physical Exam: CONSTITUTIONAL: WNWD, vitals as above, generally well-appearing. NAD EYES: pupils are round and equal bilaterally, normal conjunctivae, no scleral icterus ENT: external ear and nose normal, MMM NECK: trachea midline RESPIRATORY: clear to auscultation bilaterally, no crackles, rales or wheezes, normal respiratory effort CARDIOVASCULAR: regular rate and rhythm,S1/2 heard with 3/6 MARIN heard across precordium, no gallops or rubs, no JVD, 3+ peripheral edema in the LLE and 1+ peripheral edema in the RLE, both below the knee. CHEST: inspection of chest was normal GASTROINTESTINAL: soft, nontender, ND, no guarding MUSCULOSKELETAL: strength 5/5 throughout, head is normocephalic and atraumatic SKIN: warm and dry, there is a dusky dark purple hue to her left foot that is still present and includes the foot and the lower extremity on the left. She does have wounds present on her lateral right ankle that is slightly draining. Wound VAC is not in place. NEUROLOGIC: CN 2-12 grossly intact, no sensory deficit, normal cognition, normal speech, no tremor PSYCHIATRIC: alert cooperative and oriented to person, place and time. Euthymic mood, makes good eye contact, language grossly intact, recent and remote memory grossly intact. Results & Data Results & Data Vital Signs (Past 12 Hours) Vital Signs Temp Pulse Pulse Resp BP Pulse Ox O2 Del Method 09/18/23 08:01 36.9 C 91 H 16 112/71 97 Room Air 09/18/23 07:22 85 09/18/23 04:17 37.0 C 88 20 105/67 94 Room Air 09/17/23 22:01 94 H 09/18/23 00:16 37.0 C 87 20 91/60 L 95 Room Air Laboratory Results Short CBC 09/17/23 09/18/23 09/18/23 Range/Units 13:45 05:47 06:48 WBC 10.33 Cancelled 5.18 (4.8-10.8) K/ul Hgb 10.2 L Cancelled 9.7 L (12.0-16.0) g/dl Hct 33.4 L Cancelled 31.4 L (37.0-47.0) % Plt Count 207 Cancelled 186 (130-400) K/uL BMP 09/17/23 13:45 Sodium 138 Potassium 4.0 Chloride 103 Carbon Dioxide 28 BUN 27 H Creatinine 0.84 Glucose 94 Calcium 9.3 Medications Administered Current Inpatient Medications Acetaminophen (Acetaminophen 325 Mg Tab) 650 mg PO Q4H PRN PRN Reason: Pain or Fever Stop: 10/17/23 16:32 Amoxicillin/Clavulanate Potassium (Amoxicillin/Clavulanate 875 Mg Tab) 1 tab PO DAILY [facility]; Protocol Stop: 10/18/23 08:59 Atorvastatin Calcium (Atorvastatin 20 Mg Tab) 20 mg PO QAM [facility] Stop: 10/18/23 08:59 Baclofen (Baclofen Pain Pump) 0 pump IT UD [facility] Stop: 10/17/23 16:32 Doxycycline Hyclate (Doxycycline Hyclate 50 Mg Cap) 50 mg PO Q2D@0900 [facility] Stop: 10/18/23 08:59 Escitalopram Oxalate (Escitalopram Oxalate 20 Mg Tab) 20 mg PO QAM [facility] Stop: 10/18/23 08:59 Heparin Sodium/Dextrose (Heparin Sodium/Dextrose) 25,000 units in 500 mls @ 21 mls/hr IV .[id number] [facility]; Protocol Stop: 10/17/23 13:44 Last Titration: 09/18/23 07:16 Dose: 950 units/hr, 19 mls/hr Melatonin (Melatonin 3 Mg Tab) 3 mg PO HS PRN PRN Reason: Insomnia Stop: 10/17/23 16:32 Metoprolol Tartrate (Metoprolol Tartrate 25 Mg Tab) 25 mg PO DAILY [facility] Stop: 10/18/23 08:59 Miscellaneous ((Azelaic Acid 15 % Gel) ~ Order Awaiting Action) 1 each N/A QS [facility] Stop: 10/18/23 00:00 Aubagio 14mg ~ Non- Formulary Patient's Own Med 1 each PO QPM [facility] Stop: 10/17/23 20:59 Last Admin: 09/17/23 20:40 Dose: 1 each Oxybutynin Chloride (Oxybutynin Chloride Xl 5 Mg Tabcr) 15 mg PO QAM [facility] Stop: 10/18/23 08:59 Pantoprazole Sodium (Pantoprazole 40 Mg Tab) 40 mg PO QAM [facility] Stop: 10/18/23 08:59 Polyethylene Glycol (Polyethylene (Miralax) 17 Gm Pack) 17 gm PO DAILY PRN PRN Reason: Constipation Stop: 10/17/23 16:32 Prednisone (Prednisone 10 Mg Tablet) [facility] Stop: 10/17/23 16:32 Last Admin: 09/17/23 18:32 Dose: Not Given Tizanidine HCl (Tizanidine Hcl 4 Mg Tablet) 4 mg PO QID [facility] Stop: 10/17/23 17:59 Last Admin: 09/17/23 20:37 Dose: 4 mg Vitamin D (Cholecalciferol 1,000 Units 25 Mcg Tab) 1,000 units PO QAM [facility] Stop: 10/18/23 08:59 (3) Chronic ulcer of right foot Non-pressure ulcer stage: unspecified non-pressure ulcer stage Qualified Code(s): L97.519 - Non-pressure chronic ulcer of other part of right foot with unspecified severity
[2023-09-18] MEDS: PANTOprazole 40 MG TAB PO SCH (09:51)
[2023-09-18] MEDS: tiZANidine HCL 4 MG TABLET PO SCH ×4 (09:51→21:46)
[2023-09-18] MEDS: predniSONE 10 MG TABLET PO SCH (09:51)
[2023-09-18] MEDS: CHOLECALCIFEROL 1,000 UNITS 25 MCG TAB PO SCH (09:52)
[2023-09-18] MEDS: DOXYCYCLINE HYCLATE 50 MG CAP PO SCH (09:52)
[2023-09-18] MEDS: ESCITALOPRAM OXALATE 20 MG TAB PO SCH (09:52)
[2023-09-18] MEDS: ATORVASTATIN 20 MG TAB PO SCH (09:52)
[2023-09-18] MEDS: METOPROLOL TARTRATE 25 MG TAB PO SCH (09:52)
[2023-09-18] MEDS: AMOXICILLIN/CLAVULANATE 875 MG TAB PO SCH (09:52)
[2023-09-18] MEDS: OXYBUTYNIN CHLORIDE XL 5 MG TABCR PO SCH (09:52)
--- NOTE | 2023-09-18 11:47 | XRay Report ---
XR KUB/Abdomen 1 view CLINICAL HISTORY: to eval pain pump placement in prep for MRI TECHNIQUE: 1 view of the abdomen was obtained. Comparison: Comparison is made to abdomen radiographs 04/30/2023 FINDINGS: IVC filter is seen. The pain pump is in satisfactory appearance, unchanged from prior exam. Degenerat fredi changes are seen with levoscoliosis of the lumbar spine. The bowel gas pattern is nonobstructive. A moderate amount of stool is noted within the large bowel. IMPRESSION: Satisfactory appearance of the pain pump. ACT 112: Negative or not required by law. Electronically signed by: Morales Hanna M.D. 09/18/2023 11:46 AM
[2023-09-18] MEDS ORDERED: GADOBUTROL 65ML VIAL IV ONE (12:30)
[2023-09-18] MEDS: HEPARIN SODIUM/DEXTROSE 25,000 UNITS/500 ML BAG IV SCH (14:26)
--- NOTE | 2023-09-18 20:51 | Magnetic Resonance Report ---
MR ankle RT wo/w con CLINICAL HISTORY: h/o osteo on chronic supp therapy, req per ID TECHNIQUE: Multisequence, multiplanar MR images of the right ankle were obtained without contrast.. COMPARISON: Comparison is made to right ankle 05/09/2023 FINDINGS: Edema and enhancement in the lateral malleolus is unchanged from prior exam. Tendons in the anterior and posterior compartments of the leg are unremarkable. No joint effusion is seen. Soft tissue edema and enhancement are seen most prominently in the dorsal aspect of the ankle as well as the distal abiola f. No drainable fluid collection is seen. Redemonstration of lateral ulcer. IMPRESSION: Redemonstration of osteomyelitis in the distal fibula, similar in extent to prior exam. No new foci o f disease are seen. Soft tissue edema and lateral ulcer without drainable fluid collection. ACT 112: Negative or not required by law. Electronically signed by: Morales Hanna M.D. 09/18/2023 8:50 PM
[2023-09-18] MEDS: AUBAGIO 14 MG PO SCH (21:46)
[2023-09-18] MEDS: MELATONIN 3 MG TAB PO PRN (21:47)
[2023-09-19 06:47] LABS: Hematocrit (blood only) 30.5 % (37.0-47.0); Hemoglobin 9.6 g/dl (12.0-16.0); Mean Corpuscular Hemoglobin 27.7 pg (25.0-34.0); Mean Corpuscular Hgb Conc 31.5 g/dL (32.0-36.0); Mean Corpuscular Volume 87.9 fL (80.0-100.0); Mean Platelet Volume 10.8 fL (9.4-12.4); Platelet Count 185 K/uL (130-400); RDW Coefficient of Variation 16.2 % (11.5-14.5); RDW Standard Deviation 52.3 fL (36.4-46.3); Red Blood Count 3.47 M/uL (4.20-5.40); White Blood Count 5.85 K/ul (4.8-10.8)
[2023-09-19 07:31] LABS: Partial Thromboplastin Ratio 2.1
[2023-09-19 07:33] LABS: Partial Thromboplastin Time 58.2 Seconds (21.0-31.0)
--- NOTE | 2023-09-19 08:10 | Hospitalist Progress Note ---
Date of Service September 19, 2023 Assessment & Plan (1) Acute deep vein thrombosis of left lower extremity: Plan: Continue heparin drip. Add CHOCO hose to help with post-thrombotic syndrome. Out of apixaban at home, ensure this is refilled prior to discharge. Continue with heparin until pain and swelling starts to improve prior to switching back to PO apixaban. IVC filter is still in place from 6 years ago. No clinical evidence of PE at this time. Will ask podiatry to attempt bone biopsy prior to switching back to apixaban. (2) Chronic refractory osteomyelitis of ankle: Plan: Recently she was ordered a right ankle MRI by her ID specialist. This DVT may certainly have been provoked by an underlying infection here, along with sedentary behavior. Persistent osteo seen. Cont once daily Augmentin. ID saw her today and is requesting a bone biopsy-this was requested of Dr. Velasco, her critical care educator. (3) Chronic ulcer of right foot: Plan: chronic, appears to be doing well. She follows with the wound clinic locally. Per wound RN will not continue with the wound vac at this time. (4) HX: breast cancer: Plan: noted limb restriction on the left arm (5) Chronic anemia: Plan: chronic, stable. Cont to monitor. Denies any issues with bleeding. (6) Paroxysmal atrial fibrillation: Plan: Currently in sinus rhythm. Hold apixaban while on heparin drip. Cont metoprolol per home regimen. (7) Hypertension: Plan: chronic, stable. Cont current therapy. (8) Multiple sclerosis: Plan: chronic, stable. She is very sedentary per her report. Chronic ongoing baclofen pump and on scheduled tizanidine. continue Aubagio per home regimen, also. Neurogenic bladder ongoing. She typically self-catheterizes during the day then uses a salcedo catheter at night. Will place a urinary catheter for now. Cont Ditropan per home regimen. (9) CAD (coronary artery disease): Plan: chronic, stable. Cont medications per home regimen. (10) Neurogenic bladder: Plan: chronic, intermittent catheterization at home. Patient requested to place Salcedo while she was admitted for comfort. Remove prior to discharge. (11) Presence of intrathecal pump: Plan: Reports no longer taking intermittent baclofen. Cont scheduled tizanidine per home regimen. (12) S/P IVC filter: Plan: as noted above. DVT proph: heparin drip Full Code Dispo-telemetry I spent a total [id number] coordinating, documenting, and providing care for this patient excluding time spent in the performance of separately billed services. Solange Wall DO [facility] Hospitalist Admission and Anticipated Discharge Date Admission Date: September 17, 2023 Subjective 72 year-old female with recent history of noncompliance with apixaban presents with acute left lower extremity DVT. Patient denies any pain in her extremities today. Continues to report improvement in her left leg. Patient otherwise tolerating p.o., afebrile and feeling well. Physical Exam Physical Exam: CONSTITUTIONAL: WNWD, vitals as above, generally well-appearing. NAD EYES: pupils are round and equal bilaterally, normal conjunctivae, no scleral i cterus ENT: external ear and nose normal, MMM NECK: trachea midline RESPIRATORY: clear to auscultation bilaterally, no crackles, rales or wheezes, normal respiratory effort CARDIOVASCULAR: regular rate and rhythm,S1/2 heard with 3/6 MARIN heard across precordium, no gallops or rubs, no JVD, 3+ peripheral edema in the LLE and 1+ peripheral edema in the RLE, both below the knee. CHEST: inspection of chest was normal GASTROINTESTINAL: soft, nontender, ND, no guarding MUSCULOSKELETAL: strength 5/5 throughout, head is normocephalic and atraumatic SKIN: warm and dry, there is a dusky dark purple hue to her left foot that is still present and includes the foot and the lower extremity on the left. She does have wounds present on her lateral right ankle that is slightly draining. Wound VAC is not recommended to replace. NEUROLOGIC: CN 2-12 grossly intact, no sensory deficit, normal cognition, normal speech, no tremor PSYCHIATRIC: alert cooperative and oriented to person, place and time. Euthymic mood, makes good eye contact, language grossly intact, recent and remote memory grossly intact. Results & Data Results & Data Vital Signs (Past 12 Hours) Vital Signs Temp Pulse Pulse Resp BP Pulse Ox O2 Del Method 09/19/23 07:57 36.8 C 84 16 126/79 94 Room Air 09/19/23 07:00 85 09/19/23 04:05 36.7 C 81 20 94/62 L 97 Room Air 09/19/23 00:01 36.4 C L 71 18 100/65 96 Room Air Laboratory Results Short CBC 09/19/23 Range/Units 05:54 WBC 5.85 (4.8-10.8) K/ul Hgb 9.6 L (12.0-16.0) g/dl Hct 30.5 L (37.0-47.0) % Plt Count 185 (130-400) K/uL BMP 09/18/23 05:47 Sodium 136 Potassium 4.3 Chloride 106 Carbon Dioxide 21 BUN 25 H Creatinine 0.83 Glucose 97 Calcium 8.3 L Diagnostic Findings Ankle MRI 09/18/23 00:00 MR ankle RT wo/w con CLINICAL HISTORY: h/o osteo on chronic supp therapy, req per ID TECHNIQUE: Multisequence, multiplanar MR images of the right ankle were obtained without contrast.. COMPARISON: Comparison is made to right ankle 05/09/2023 FINDINGS: Edema and enhancement in the lateral malleolus is unchanged from prior exam. Tendons in the anterior and posterior compartments of the leg are unremarkable. No joint effusion is seen. Soft tissue edema and enhancement are seen most prominently in the dorsal aspect of the ankle as well as the distal calf. No drainable fluid collection is seen. Redemonstration of lateral ulcer. IMPRESSION: Redemonstration of osteomyelitis in the distal fibula, similar in extent to prior exam. No new foci of disease are seen. Soft tissue edema and lateral ulcer without drainable fluid collection. ACT 112: Negative or not required by law. Electronically signed by: Morales Hanna M.D. 09/18/2023 8:50 PM Medications Administered Current Inpatient Medications Acetaminophen (Acetaminophen 325 Mg Tab) 650 mg PO Q4H PRN PRN Reason: Pain or Fever Stop: 10/17/23 16:32 Amoxicillin/Clavulanate Potassium (Amoxicillin/Clavulanate 875 Mg Tab) 1 tab PO DAILY [facility]; Protocol Stop: 10/18/23 08:59 Last Admin: 09/18/23 09:52 Dose: 1 tab Atorvastatin Calcium (Atorvastatin 20 Mg Tab) 20 mg PO QAM [facility] Stop: 10/18/23 08:59 Last Admin: 09/18/23 09:52 Dose: 20 mg Baclofen (Baclofen Pain Pump) 0 pump IT UD [facility] Stop: 10/17/23 16:32 Doxycycline Hyclate (Doxycycline Hyclate 50 Mg Cap) 50 mg PO Q2D@0900 [facility] Stop: 10/18/23 08:59 Last Admin: 09/18/23 09:52 Dose: 50 mg Escitalopram Oxalate (Escitalopram Oxalate 20 Mg Tab) 20 mg PO QAM [facility] Stop: 10/18/23 08:59 Last Admin: 09/18/23 09:52 Dose: 20 mg Heparin Sodium/Dextrose (Heparin Sodium/Dextrose) 25,000 units in 500 mls @ 19 mls/hr IV .Q24H [facility]; Protocol Stop: 10/17/23 13:44 Last Titration: 09/19/23 07:36 Dose: 950 units/hr, 19 mls/hr Melatonin (Melatonin 3 Mg Tab) 3 mg PO HS PRN PRN Reason: Insomnia Stop: 10/17/23 16:32 Last Admin: 09/18/23 21:47 Dose: 3 mg Metoprolol Tartrate (Metoprolol Tartrate 25 Mg Tab) 25 mg PO DAILY [facility] Stop: 10/18/23 08:59 Last Admin: 09/18/23 09:52 Dose: 25 mg Miscellaneous ((Azelaic Acid 15 % Gel) ~ Order Awaiting Action) 1 each N/A QS [facility] Stop: 10/18/23 00:00 Last Admin: 09/19/23 06:32 Dose: Not Given Aubagio 14mg ~ Non- Formulary Patient's Own Med 1 each PO QPM [facility] Stop: 10/17/23 20:59 Last Admin: 09/18/23 21:46 Dose: 1 each Oxybutynin Chloride (Oxybutynin Chloride Xl 5 Mg Tabcr) 15 mg PO QAM [facility] Stop: 10/18/23 08:59 Last Admin: 09/18/23 09:52 Dose: 15 mg Pantoprazole Sodium (Pantoprazole 40 Mg Tab) 40 mg PO QAM [facility] Stop: 10/18/23 08:59 Last Admin: 09/18/23 09:51 Dose: 40 mg Polyethylene Glycol (Polyethylene (Miralax) 17 Gm Pack) 17 gm PO DAILY PRN PRN Reason: Constipation Stop: 10/17/23 16:32 Prednisone (Prednisone 10 Mg Tablet) 10 mg PO QAM [facility] Stop: 10/17/23 16:32 Last Admin: 09/18/23 09:51 Dose: 10 mg Tizanidine HCl (Tizanidine Hcl 4 Mg Tablet) 4 mg PO QID [facility] Stop: 10/17/23 17:59 Last Admin: 09/18/23 21:46 Dose: 4 mg Vitamin D (Cholecalciferol 1,000 Units 25 Mcg Tab) 1,000 units PO QAM [facility] Stop: 10/18/23 08:59 Last Admin: 09/18/23 09:52 Dose: 1,000 units (3) Chronic ulcer of right foot Non-pressure ulcer stage: unspecified non-pressure ulcer stage Qualified Code(s): L97.519 - Non-pressure chronic ulcer of other part of right foot with unspecified severity
[2023-09-19] MEDS: tiZANidine HCL 4 MG TABLET PO SCH ×4 (09:38→20:44)
[2023-09-19] MEDS: predniSONE 10 MG TABLET PO SCH (09:38)
[2023-09-19] MEDS: METOPROLOL TARTRATE 25 MG TAB PO SCH (10:43)
[2023-09-19] MEDS: CHOLECALCIFEROL 1,000 UNITS 25 MCG TAB PO SCH (10:43)
[2023-09-19] MEDS: OXYBUTYNIN CHLORIDE XL 5 MG TABCR PO SCH (10:43)
[2023-09-19] MEDS: PANTOprazole 40 MG TAB PO SCH (10:44)
[2023-09-19] MEDS: ESCITALOPRAM OXALATE 20 MG TAB PO SCH (10:44)
[2023-09-19] MEDS: AMOXICILLIN/CLAVULANATE 875 MG TAB PO SCH (10:44)
[2023-09-19] MEDS: ATORVASTATIN 20 MG TAB PO SCH (10:44)
[2023-09-19] MEDS: HEPARIN SODIUM/DEXTROSE 25,000 UNITS/500 ML BAG IV SCH (14:00)
--- NOTE | 2023-09-19 15:19 | Infectious Disease Consult ---
Date of Service September 19, 2023 Telehealth Information I performed this visit using a real-time telehealth connection between my location and the patients location ([facility]). After connecting through interactive tele-video, patient was identified by name and date of and/or wristband check.Patient (or authorized healthcare sales representative metals) was informed that this was a telemedicine visit and it was being conducted confidentially over secure lines. My office door was closed and no one else was present in the room with me.Patient (or authorized healthcare sales representative metals) provided consent to proceed with the visit, expressed an understanding of privacy and security of the telemedicine visit, and gave permission to have a hospital sales representative metals in the room in order to assist with the visit and to conduct portions of the visit, as needed. I informed the patient (or authorized healthcare sales representative metals) that I reviewed their record and presented the opportunity for them to ask any questions regarding the visit today. The patient agreed to participate. Assessment & Plan (1) Osteomyelitis of ankle: (2) Acute deep vein thrombosis of left lower extremity: (3) Multiple sclerosis: Plan - Please consult podiatry/orthopedics for Rt lateral malleolus bone biopsy for culture to help guide antibiotic treatment. - Since the osteomyelitis is chronic, I would recommend to stop all antibiotics (IV or oral) for now pending biopsy and culture results. - Thank you for involving us in the care of Mrs. Bassett. We will continue to follow. History of Present Illness History of Present Illness Mrs. Shelby is a 72-year-old woman with past medical history of MS, CAD, paroxysmal A-fib, history of pulmonary embolism/DVT, HTN, dyslipidemia and history of left breast cancer (status postsurgery and radiation) who was admitted to [facility] on 09/17 because of Lt leg swelling and was found to have DVT. ID team was consulted because of her chronic Rt ankle ulcer. Regarding the Hx of this ulcer, she was initially admitted to [facility] on 05/08 because of infected right ankle ulcer with MRI of the right ankle showing cellulitis with underlying osteomyelitis. She eventually underwent an I&D with excision of the right fibula nonviable wound on 05/12 with right fibular culture growing Enterococcus faecalis (ampicillin susceptible). We decided at that time to treat with 6 weeks of IV ampicillin which she completed on June 24, 2023. I saw her in the clinic on 07/12 and because of concerns for poor healing, I decided to do an Xray and started on Augmentin. The Xray of the Rt foot was not impressive. I saw her again in the clinic on 09/11 and decided to order MRI of the foot and continue on Augmentin. During today's encounter, her main complaint was the swelling and tightness in her left lower extremity. She did not endorse any fever or chills. Allergies Allergy/AdvReac Type Severity Reaction Status Date / Time No Known Allergies Allergy Verified 09/14/23 13:17 Home Medications Medication Instructions Recorded Confirmed Type cholecalciferol (vitamin D3) 25 1,000 units PO QAM 09/18/18 09/17/23 History mcg (1,000 unit) capsule escitalopram oxalate 20 mg tablet 20 mg PO QAM 09/18/18 09/17/23 History (Lexapro) oxybutynin chloride 15 mg 15 mg PO QAM 09/18/18 09/17/23 History tablet,extended release 24 hr prednisone 10 mg tablet 10 mg PO QAM 09/18/18 09/17/23 History omeprazole 40 mg capsule,delayed 40 mg PO QAM 07/06/21 09/17/23 History release apixaban 5 mg tablet (Eliquis) 5 mg PO BID #60 tabs 07/09/21 09/17/23 Rx teriflunomide 14 mg tablet 14 mg PO QPM 05/13/22 09/17/23 History (Aubagio) tizanidine 4 mg tablet (Zanaflex) 4 mg PO QID 05/13/22 09/17/23 History doxycycline hyclate 50 mg capsule 50 mg PO Q OTHER DAY Rosacea 08/10/22 09/17/23 History azelaic acid 15 % topical gel 1 applic topical DAILY 10/21/22 09/17/23 History acetaminophen 500 mg tablet 500 mg PO Q6H PRN Pain 03/05/23 09/17/23 History melatonin 3 mg tablet 3 mg PO HS PRN Insomnia 03/05/23 09/17/23 History multivitamin 1 tab PO DAILY 03/05/23 09/17/23 History metoprolol tartrate 25 mg tablet 25 mg PO DAILY 05/08/23 09/17/23 History atorvastatin 20 mg tablet (Lipitor) 20 mg PO QAM 08/04/23 09/17/23 History Baclofen Pump 0 mg SC DIRECTED 08/05/23 09/17/23 History amoxicillin 875 mg-potassium 1 tab PO DAILY 08/11/23 09/17/23 History clavulanate 125 mg tablet Patient History Medical History Anemia CAD (coronary artery disease) Non-obstructive per 06/2021 cardiac cath Fever GERD (gastroesophageal reflux disease) controlled, stable per pt History of blood transfusion History of DVT (deep vein thrombosis) ~6 yrs ago History of GI bleed Upper GIB (2019) felt 2/2 NSAID use History of non-ST elevation myocardial infarction (NSTEMI) 06/2021 (had heart cath, no stents) History of pulmonary embolism ~ 6 yrs ago, IVC filter still in place History of recent hospitalization 09/2022 [facility] - sepsis History of supraventricular tachycardia Hx of gastric ulcer 02/2021 HX: breast cancer Left breast cancer with surgery and chemo/radiation-left arm restriction Hypertension controlled, stable per pt Limb alert care status left arm Multiple sclerosis Follows with Dr. Walker/[facility] Stable Neurogenic bladder SELF CATH 2-3 X'S PER DAY *RECENT HOSPITALIZATION FOR UTI Osteoarthritis of right shoulder Osteoporosis Raynaud disease Surgical History H/O left mastectomy with lymph node removal>LEFT ARM RESTRICTION History of appendectomy History of cardiac cath Cardiac cath (07/06/21; [facility]) > Right dominant coronary system. No evidence of aortic stenosis. Normal left ventricular filling pressures. Nonobstructive disease involving the ostial LAD. No evidence of acute coronary syndrome. Approximately 50% ostial stenosis of the LAD. There was some very mild disease at the ostium of the left circumflex. Recommendations: Medical management. History of colonoscopy History of esophagogastroduodenoscopy (EGD) History of open reduction and internal fixation (ORIF) procedure "left hip" History of tooth extraction Presence of intrathecal pump baclofen pump in place--status post revision/replacement 08/10/2022 S/P IVC filter S/P partial hysterectomy S/p reverse total shoulder arthroplasty right: 05/25/22 LMA#4. No postop issues per anesthesia progress note. Family History Mother Heart disorder Other No family history of adverse response to anesthesia Social History Smoking Status: Former smoker Tobacco Type: Cigarettes packs per day: 1; Cigarettes Per Day: stopped in 1977; Second Hand Exposure: No; Do You Dip or Chew Tobacco: No; Hx Alcohol Use: No Hx Substance Use: No Preferred Language: Amharic Communication Ability: Effective Visual Impairment: Limited Hearing Ability: Use of Hearing Aid Systems Integration Advisor Required: No Beliefs That Will Affect Care: None marital status: / Current Living Situation: Alone Current Living Situation Comment: family helps pt and [facility] current occupational status: retired How many Children do You have: 3 Feels Safe at Home: Yes Safety Concerns: Feels Safe At This Time Childhood Exposure to Second-Hand Smoke: Yes Diet: regular caffeine: Yes Assistive Devices: Walker and Wheelchair Review of Systems Constitutional: No fatigue, no fever or chills HEENT: no sore throat, no nasal discharge Cardiovascular: no chest pain, or palpitations Respiratory: no shortness of breath, no cough Gastrointestinal: No nausea, vomiting, diarrhea or abdominal pain : No dysuria or hesitancy, no urinary discharge Musculoskeletal/Skin: Lt leg swelling, surgical wound still the same but no redness or drainage Neurologic: no dizziness or headache Physical Exam Couldn't be obtained as the consult was performed via telemed. Results & Data Vital Signs (Past 12 Hours) Vital Signs Temp Pulse Pulse Resp BP Pulse Ox O2 Del Method 09/19/23 15:10 36.6 C 75 16 109/77 99 Room Air 09/19/23 11:40 Room Air 09/19/23 11:22 98 H 16 129/80 95 Room Air 09/19/23 07:57 36.8 C 84 16 126/79 94 Room Air 09/19/23 07:00 85 09/19/23 04:05 36.7 C 81 20 94/62 L 97 Room Air Laboratory Results MICROBIOLOGY DATA: 05/08: 2 sets of blood culture negative 05/12: Intraoperative tissue culture with no growth except for low counts mixed skin carmel 05/12: Right fibular bone culture growing ampicillin susceptible Enterococcus fa ecalis Diagnostic Findings MRI Rt ankel 09/18: Redemonstration of osteomyelitis in the distal fibula, similar in extent to prior exam. No new foci of disease are seen. Soft tissue edema and lateral ulcer without drainable fluid collection.
--- NOTE | 2023-09-19 19:24 | Orthopedic Consultation ---
Date of Consultation September 19, 2023 Assessment & Plan (1) Osteomyelitis of ankle: Patient seen and evaluated at bedside. Reviewed MRI and MRI findings. Patient scheduled for surgical care of non healing wound chronic osteomyelitis of right fibula 09/20/23 3:30pm/ Patient made NPO after midnight. Thank you for involving me in the care of this Patient. (2) Leg wound, right: History of Present Illness Attending Physician: Solange Wall DO History of Present Illness Patient seen at bedside for Right lateral ankle non healing wound. MRI of Right ankle shows right fibula chronic osteomyelitis. Patient is sleeping comfortably and not aroused. Allergies Allergy/AdvReac Type Severity Reaction Status Date / Time No Known Allergies Allergy Verified 09/14/23 13:17 Home Medications Medication Instructions Recorded Confirmed Type cholecalciferol (vitamin D3) 25 1,000 units PO QAM 09/18/18 09/17/23 History mcg (1,000 unit) capsule escitalopram oxalate 20 mg tablet 20 mg PO QAM 09/18/18 09/17/23 History (Lexapro) oxybutynin chloride 15 mg 15 mg PO QAM 09/18/18 09/17/23 History tablet,extended release 24 hr prednisone 10 mg tablet 10 mg PO QAM 09/18/18 09/17/23 History omeprazole 40 mg capsule,delayed 40 mg PO QAM 07/06/21 09/17/23 History release apixaban 5 mg tablet (Eliquis) 5 mg PO BID #60 tabs 07/09/21 09/17/23 Rx teriflunomide 14 mg tablet 14 mg PO QPM 05/13/22 09/17/23 History (Aubagio) tizanidine 4 mg tablet (Zanaflex) 4 mg PO QID 05/13/22 09/17/23 History doxycycline hyclate 50 mg capsule 50 mg PO Q OTHER DAY Rosacea 08/10/22 09/17/23 History azelaic acid 15 % topical gel 1 applic topical DAILY 10/21/22 09/17/23 History acetaminophen 500 mg tablet 500 mg PO Q6H PRN Pain 03/05/23 09/17/23 History melatonin 3 mg tablet 3 mg PO HS PRN Insomnia 03/05/23 09/17/23 History multivitamin 1 tab PO DAILY 03/05/23 09/17/23 History metoprolol tartrate 25 mg tablet 25 mg PO DAILY 05/08/23 09/17/23 History atorvastatin 20 mg tablet (Lipitor) 20 mg PO QAM 08/04/23 09/17/23 History Baclofen Pump 0 mg SC DIRECTED 08/05/23 09/17/23 History amoxicillin 875 mg-potassium 1 tab PO DAILY 08/11/23 09/17/23 History clavulanate 125 mg tablet Patient History Medical History Anemia CAD (coronary artery disease) Non-obstructive per 06/2021 cardiac cath Fever GERD (gastroesophageal reflux disease) controlled, stable per pt History of blood transfusion History of DVT (deep vein thrombosis) ~6 yrs ago History of GI bleed Upper GIB (2019) felt 2/2 NSAID use History of non-ST elevation myocardial infarction (NSTEMI) 06/2021 (had heart cath, no stents) History of pulmonary embolism ~ 6 yrs ago, IVC filter still in place History of recent hospitalization 09/2022 [facility] - sepsis History of supraventricular tachycardia Hx of gastric ulcer 02/2021 HX: breast cancer Left breast cancer with surgery and chemo/radiation-left arm restriction Hypertension controlled, stable per pt Limb alert care status left arm Multiple sclerosis Follows with Dr. Walker/[facility] Stable Neurogenic bladder SELF CATH 2-3 X'S PER DAY *RECENT HOSPITALIZATION FOR UTI Osteoarthritis of right shoulder Osteoporosis Raynaud disease Surgical History H/O left mastectomy with lymph node removal>LEFT ARM RESTRICTION History of appendectomy History of cardiac cath Cardiac cath (07/06/21; [facility]) > Right dominant coronary system. No evidence of aortic stenosis. Normal left ventricular filling pressures. Nonobstructive disease involving the ostial LAD. No evidence of acute coronary syndrome. Approximately 50% ostial stenosis of the LAD. There was some very mild disease at the ostium of the left circumflex. Recommendations: Medical management. History of colonoscopy History of esophagogastroduodenoscopy (EGD) History of open reduction and internal fixation (ORIF) procedure "left hip" History of tooth extraction Presence of intrathecal pump baclofen pump in place--status post revision/replacement 08/10/2022 S/P IVC filter S/P partial hysterectomy S/p reverse total shoulder arthroplasty right: 05/25/22 LMA#4. No postop issues per anesthesia progress note. Family History Mother Heart disorder Other No family history of adverse response to anesthesia Social History Smoking Status: Former smoker Tobacco Type: Cigarettes packs per day: 1; Cigarettes Per Day: stopped in 1977; Second Hand Exposure: No; Do You Dip or Chew Tobacco: No; Hx Alcohol Use: No Hx Substance Use: No Preferred Language: Chinese Communication Ability: Effective Visual Impairment: Limited Hearing Ability: Use of Hearing Aid Liquid Floor And Wall Applier Required: No Beliefs That Will Affect Care: None marital status: / Current Living Situation: Alone Current Living Situation Comment: family helps pt and [facility] current occupational status: retired How many Children do You have: 3 Feels Safe at Home: Yes Safety Concerns: Feels Safe At This Time Childhood Exposure to Second-Hand Smoke: Yes Diet: regular caffeine: Yes Assistive Devices: Walker, Wheelchair and Other Review of Systems Review of Systems: All systems reviewed & are unremarkable except as noted in HPI & below Results & Data Vital Signs (Past 12 Hours) Vital Signs Temp Pulse Pulse Resp BP Pulse Ox O2 Del Method 09/19/23 14:14 78 09/19/23 15:10 36.6 C 75 16 109/77 99 Room Air 09/19/23 11:40 Room Air 09/19/23 11:22 98 H 16 129/80 95 Room Air 09/19/23 07:57 36.8 C 84 16 126/79 94 Room Air Diagnostic Findings [place], [place] [phone] Magnetic Resonance Report Patient:NADEEN ANNE Admit Date:09/17/23 MR#:[id number] Address1:[address] [place] [address] Acct ID:[id number] Address2: Date:1950 [facility] Zip:[place] [address] Age:72 Location: Sex:F Room/Bed:[facility] Att Phy:Solange Wall DO Diagnosis:LEFT LEG DVT WITH SWELLING/PAIN Jenifer Phy:Simi Hernandez CRNP Service Date:09/18/23 [facility] Phy: Interpreting Phy:Morales Hanna MDAdmit Phy:Solange Wall DO Ordering Phy:Solange Wall DO cc: ~ MR ankle RT wo/w con CLINICAL HISTORY: h/o osteo on chronic supp therapy, req per ID TECHNIQUE: Multisequence, multiplanar MR images of the right ankle were obtained without contrast.. COMPARISON: Comparison is made to right ankle 05/09/2023 FINDINGS: Edema and enhancement in the lateral malleolus is unchanged from prior exam. Tendons in the anterior and posterior compartments of the leg are unremarkable. No joint effusion is seen. Soft tissue edema and enhancement are seen most prominently in the dorsal aspect of the ankle as well as the distal calf. No drainable fluid collection is seen. Redemonstration of lateral ulcer. IMPRESSION: Redemonstration of osteomyelitis in the distal fibula, similar in extent to prior exam. No new foci of disease are seen. Soft tissue edema and lateral ulcer without drainable fluid collection. ACT 112: Negative or not required by law. Electronically signed by: Morales Hanna M.D. 09/18/2023 8:50 PM Dictated:09/18/232030 Transcribed: 09/18/232035
[2023-09-19] MEDS: AUBAGIO 14 MG PO SCH (20:44)
[2023-09-19] MEDS: MELATONIN 3 MG TAB PO PRN (20:47)
--- NOTE | 2023-09-19 23:02 | Electrocardiogram Report ---
Test Reason : Blood Pressure : / mmHG Vent. Rate : 079 BPM Atrial Rate : 079 BPM P-R Int : 158 ms QRS Dur : 068 ms QT Int : 386 ms P-R-T Axes : 062 052 061 degrees QTc Int : 442 ms Normal sinus rhythm Normal ECG When compared with ECG of 05-AUG-2023 14:43, Premature ventricular complexes are no longer Present Borderline criteria for Anterior infarct are no longer Present Borderline criteria for Anterolateral infarct are no longer Present Confirmed by Navin Alejandra ([id number]) on 09/19/2023 11:01:47 PM Referred By: Confirmed By:Navin Alejandra
[2023-09-20 06:32] LABS: Hematocrit (blood only) 30.4 % (37.0-47.0); Hemoglobin 9.8 g/dl (12.0-16.0); Mean Corpuscular Hemoglobin 27.8 pg (25.0-34.0); Mean Corpuscular Hgb Conc 32.2 g/dL (32.0-36.0); Mean Corpuscular Volume 86.1 fL (80.0-100.0); Mean Platelet Volume 10.7 fL (9.4-12.4); Platelet Count 216 K/uL (130-400); RDW Coefficient of Variation 16.1 % (11.5-14.5); RDW Standard Deviation 50.4 fL (36.4-46.3); Red Blood Count 3.53 M/uL (4.20-5.40); White Blood Count 5.58 K/ul (4.8-10.8)
[2023-09-20 06:59] LABS: Creatinine Clr Calc Pharmacy 58.5 ml/min; Est GFR (African American) 95.1 ml/min; Est GFR (Non-African American) 82.1 ml/min; Potassium 4.3 mmol/L (3.5-5.1)
[2023-09-20 07:36] LABS: Partial Thromboplastin Time 57.2 Seconds (21.0-31.0)
[2023-09-20] MEDS: ESCITALOPRAM OXALATE 20 MG TAB PO SCH (08:44)
[2023-09-20] MEDS: OXYBUTYNIN CHLORIDE XL 5 MG TABCR PO SCH (08:45)
[2023-09-20] MEDS: DOXYCYCLINE HYCLATE 50 MG CAP PO SCH (08:45)
[2023-09-20] MEDS: predniSONE 10 MG TABLET PO SCH (08:45)
[2023-09-20] MEDS: ATORVASTATIN 20 MG TAB PO SCH (08:46)
[2023-09-20] MEDS: PANTOprazole 40 MG TAB PO SCH (08:46)
[2023-09-20] MEDS: AMOXICILLIN/CLAVULANATE 875 MG TAB PO SCH (08:46)
[2023-09-20] MEDS: tiZANidine HCL 4 MG TABLET PO SCH ×4 (08:47→20:57)
[2023-09-20] MEDS: CHOLECALCIFEROL 1,000 UNITS 25 MCG TAB PO SCH (08:47)
[2023-09-20] MEDS: METOPROLOL TARTRATE 25 MG TAB PO SCH (08:47)
--- NOTE | 2023-09-20 09:17 | Hospitalist Progress Note ---
Date of Service September 20, 2023 Assessment & Plan (1) Acute deep vein thrombosis of left lower extremity: Plan: Continue heparin drip. Cont CHOCO hose to help with post-thrombotic syndrome. Out of apixaban at home, ensure this is refilled prior to discharge. Continue with heparin until pain and swelling starts to improve prior to switching back to PO apixaban. IVC filter is still in place from 6 years ago. No clinical evidence of PE at this time. Will ask podiatry to attempt bone biopsy prior to switching back to apixaban. (2) Chronic refractory osteomyelitis of ankle: Plan: Recently she was ordered a right ankle MRI by her ID specialist. This DVT may certainly have been provoked by an underlying infection here, along with sedentary behavior. Persistent osteo seen. Hold additional abx at this time pending bone biopsy results. ID saw her today and is requesting a bone biopsy- this was requested of Dr. Velasco, her unemployment insurance director. (3) Chronic ulcer of right foot: Plan: chronic, appears to be doing well. She follows with the wound clinic locally. Per wound RN will not continue with the wound vac at this time. (4) HX: breast cancer: Plan: noted limb restriction on the left arm (5) Chronic anemia: Plan: chronic, stable. Cont to monitor. Denies any issues with bleeding. (6) Paroxysmal atrial fibrillation: Plan: Currently in sinus rhythm. Hold apixaban while on heparin drip. Cont metoprolol per home regimen. (7) Hypertension: Plan: chronic, stable. Cont current therapy. (8) Multiple sclerosis: Plan: chronic, stable. She is very sedentary per her report. Chronic ongoing baclofen pump and on scheduled tizanidine. continue Aubagio per home regimen, also. Neurogenic bladder ongoing. She typically self-catheterizes during the day then uses a salcedo catheter at night. Will place a urinary catheter for now. Cont Ditropan per home regimen. (9) CAD (coronary artery disease): Plan: chronic, stable. Cont medications per home regimen. (10) Neurogenic bladder: Plan: chronic, intermittent catheterization at home. Patient requested to place Salcedo while she was admitted for comfort. Remove prior to discharge. (11) Presence of intrathecal pump: Plan: Reports no longer taking intermittent baclofen. Cont scheduled tizanidine per home regimen. (12) S/P IVC filter: Plan: as noted above. DVT proph: heparin drip Full Code Dispo-telemetry I spent a total [id number] coordinating, documenting, and providing care for this patient excluding time spent in the performance of separately billed services. DO Sara Morris Hospitalist Admission and Anticipated Discharge Date Admission Date: September 17, 2023 Subjective 72 year-old female with recent history of noncompliance with apixaban presents with acute left lower extremity DVT. Patient denies any pain in her extremities today. Continues to report improvement in her left leg. Patient otherwise tolerating p.o., afebrile and feeling well. Physical Exam Physical Exam: CONSTITUTIONAL: WNWD, vitals as above, generally well-appearing. NAD EYES: pupils are round and equal bilaterally, normal conjunctivae, no scleral icterus ENT: external ear and nose normal, MMM NECK: trachea midline RESPIRATORY: clear to auscultation bilaterally, no crackles, rales or wheezes, normal respiratory effort CARDIOVASCULAR: regular rate and rhythm,S1/2 heard with 3/6 MARIN heard across precordium, no gallops or rubs, no JVD, trace peripheral edema in bilateral lower extremities. CHEST: inspection of chest was normal GASTROINTESTINAL: soft, nontender, ND, no guarding MUSCULOSKELETAL: strength 5/5 throughout, head is normocephalic and atraumatic SKIN: warm and dry, there is a dusky dark purple hue to her left foot that is still present and includes the foot and the lower extremity on the left. She does have wounds present on her lateral right ankle that is slightly draining. Wound VAC is not recommended to replace. NEUROLOGIC: CN 2-12 grossly intact, no sensory deficit, normal cognition, normal speech, no tremor PSYCHIATRIC: alert cooperative and oriented to person, place and time. Euthymic mood, makes good eye contact, language grossly intact, recent and remote memory grossly intact. Results & Data Results & Data Vital Signs (Past 12 Hours) Vital Signs Temp Pulse Pulse Resp BP Pulse Ox O2 Del Method 09/20/23 07:38 36.9 C 77 16 151/94 H 94 Room Air 09/19/23 22:00 80 09/20/23 07:00 72 09/20/23 00:00 Room Air 09/20/23 03:12 36.8 C 76 18 155/88 H 96 Room Air 09/19/23 23:04 36.5 C 75 20 105/66 94 Room Air Laboratory Results Short CBC 09/20/23 Range/Units 06:04 WBC 5.58 (4.8-10.8) K/ul Hgb 9.8 L (12.0-16.0) g/dl Hct 30.4 L (37.0-47.0) % Plt Count 216 (130-400) K/uL BMP 09/20/23 06:04 Sodium 139 Potassium 4.3 Chloride 105 Carbon Dioxide 30 BUN 17 Creatinine 0.74 Glucose 87 Calcium 9.0 Medications Administered Current Inpatient Medications Acetaminophen (Acetaminophen 325 Mg Tab) 650 mg PO Q4H PRN PRN Reason: Pain or Fever Stop: 10/17/23 16:32 Amoxicillin/Clavulanate Potassium (Amoxicillin/Clavulanate 875 Mg Tab) 1 tab PO DAILY [facility]; Protocol Stop: 10/18/23 08:59 Last Admin: 09/20/23 08:46 Dose: 1 tab Atorvastatin Calcium (Atorvastatin 20 Mg Tab) 20 mg PO QAM [facility] Stop: 10/18/23 08:59 Last Admin: 09/20/23 08:46 Dose: 20 mg Baclofen (Baclofen Pain Pump) 0 pump IT UD [facility] Stop: 10/17/23 16:32 Doxycycline Hyclate (Doxycycline Hyclate 50 Mg Cap) 50 mg PO Q2D@0900 [facility] Stop: 10/18/23 08:59 Last Admin: 09/20/23 08:45 Dose: 50 mg Escitalopram Oxalate (Escitalopram Oxalate 20 Mg Tab) 20 mg PO QAM [facility] Stop: 10/18/23 08:59 Last Admin: 09/20/23 08:44 Dose: 20 mg Heparin Sodium/Dextrose (Heparin Sodium/Dextrose) 25,000 units in 500 mls @ 19 mls/hr IV .Q24H [facility]; Protocol Stop: 10/17/23 13:44 Last Titration: 09/20/23 07:39 Dose: 950 units/hr, 19 mls/hr Melatonin (Melatonin 3 Mg Tab) 3 mg PO HS PRN PRN Reason: Insomnia Stop: 10/17/23 16:32 Last Admin: 09/19/23 20:47 Dose: 3 mg Metoprolol Tartrate (Metoprolol Tartrate 25 Mg Tab) 25 mg PO DAILY [facility] Stop: 10/18/23 08:59 Last Admin: 09/20/23 08:47 Dose: 25 mg Miscellaneous ((Azelaic Acid 15 % Gel) ~ Order Awaiting Action) 1 each N/A QS [facility] Stop: 10/18/23 00:00 Last Admin: 09/20/23 08:48 Dose: Not Given Aubagio 14mg ~ Non- Formulary Patient's Own Med 1 each PO QPM [facility] Stop: 10/17/23 20:59 Last Admin: 09/19/23 20:44 Dose: 1 each Oxybutynin Chloride (Oxybutynin Chloride Xl 5 Mg Tabcr) [facility] [place] Stop: 10/18/23 08:59 Last Admin: 09/20/23 08:45 Dose: 15 mg Pantoprazole Sodium (Pantoprazole 40 Mg Tab) 40 mg PO [facility] Stop: 10/18/23 08:59 Last Admin: 09/20/23 08:46 Dose: 40 mg Polyethylene Glycol (Polyethylene (Miralax) 17 Gm Pack) 17 gm PO DAILY PRN PRN Reason: Constipation Stop: 10/17/23 16:32 Prednisone (Prednisone 10 Mg Tablet) 10 mg PO [facility] Stop: 10/17/23 16:32 Last Admin: 09/20/23 08:45 Dose: 10 mg Tizanidine HCl (Tizanidine Hcl 4 Mg Tablet) 4 mg PO QID [facility] Stop: 10/17/23 17:59 Last Admin: 09/20/23 08:47 Dose: 4 mg Vitamin D (Cholecalciferol 1,000 Units 25 Mcg Tab) 1,000 units PO [facility] Stop: 10/18/23 08:59 Last Admin: 09/20/23 08:47 Dose: 1,000 units (3) Chronic ulcer of right foot Non-pressure ulcer stage: unspecified non-pressure ulcer stage Qualified Code(s): L97.519 - Non-pressure chronic ulcer of other part of right foot with unspecified severity
[2023-09-20] MEDS: HEPARIN SODIUM/DEXTROSE 25,000 UNITS/500 ML BAG IV SCH (15:27)
[2023-09-20] MEDS: AUBAGIO 14 MG PO SCH (20:56)
[2023-09-20] MEDS: MELATONIN 3 MG TAB PO PRN (20:56)
--- NOTE | 2023-09-20 21:56 | Orthopedic Progress Note ---
Date of Service September 20, 2023 Assessment & Plan (1) Osteomyelitis of ankle: Plan: Patient seen and evaluated at bedside. Reviewed MRI and MRI findings. Patient scheduled for surgical care of non healing wound chronic osteomyelitis of right fibula 09/21/23 3:30pm/ Patient made NPO after midnight. Thank you for involving me in the care of this Patient. (2) Leg wound, right: Admission and Anticipated Discharge Date Admission Date: September 17, 2023 Subjective Patient is a 72 year-old female seen at bedside this evening. Recent MRI shows concern for right fibula osteomyelitis. She is scheduled for partial excision of fibula tomorrow. She has no complaints and is resting comfortably. Review of Systems Review of Systems: All systems reviewed & are unremarkable except as noted in Subjective Physical Exam Constitutional: cooperative and comfortable Eyes: normal visual davidson by confrontation Neck: normal visual inspection Respiratory: normal respiratory effort Cardiovascular: Vessels: posterior tibial pulses present and dorsalis pedis pulses present Skin: + ulcer (right lateral ankle) Neurologic: Decreased epicritic sensation to lower extremites Psychiatric: Orientation: alert and oriented x 3 Results & Data Vital Signs (Past 12 Hours) Vital Signs Temp Pulse Resp BP Pulse Ox O2 Del Method 09/20/23 19:26 36.3 C L 80 18 126/82 97 Room Air 09/20/23 11:58 72 16 130/86 94 Room Air 09/20/23 11:13 Room Air Diagnostic Findings [place], [place] [phone] Magnetic Resonance Report Patient:NADEEN ANNE Admit Date:09/17/23 MR#:[id number] Address1:[address] [place] [address] Acct ID:[id number] Address2: Date:1950 [facility] Zip:[place] [address] Age:72 Location:2N Sex:F Room/Bed:[facility] Att Phy:Solange Wall DO Diagnosis:LEFT LEG DVT WITH SWELLING/PAIN Jenifer Phy:Simi Hernandez CRNP Service Date:09/18/23 Fam Phy: Interpreting Phy:Morales Hanna MDAdmit Phy:Solange Wall DO Ordering Phy:Solange Wall DO cc: ~ MR ankle RT wo/w con CLINICAL HISTORY: h/o osteo on chronic supp therapy, req per ID TECHNIQUE: Multisequence, multiplanar MR images of the right ankle were obtained without contrast.. COMPARISON: Comparison is made to right ankle 05/09/2023 FINDINGS: Edema and enhancement in the lateral malleolus is unchanged from prior exam. Tendons in the anterior and posterior compartments of the leg are unremarkable. No joint effusion is seen. Soft tissue edema and enhancement are seen most prominently in the dorsal aspect of the ankle as well as the distal calf. No drainable fluid collection is seen. Redemonstration of lateral ulcer. IMPRESSION: Redemonstration of osteomyelitis in the distal fibula, similar in extent to prior exam. No new foci of disease are seen. Soft tissue edema and lateral ulcer without drainable fluid collection. ACT 112: Negative or not required by law. Electronically signed by: Morales Hanna M.D. 09/18/2023 8:50 PM
[2023-09-21 08:14] LABS: Partial Thromboplastin Ratio 0.8; Partial Thromboplastin Time 23.3 Seconds (21.0-31.0)
--- NOTE | 2023-09-21 09:16 | Hospitalist Progress Note ---
Date of Service September 21, 2023 Assessment & Plan (1) Acute deep vein thrombosis of left lower extremity: Plan: Continue heparin drip. Cont CHOCO parrish to help with post-thrombotic syndrome. Out of apixaban at home, - pt says her daughter picked it up and she now has it at home. Continue with heparin until pain and swelling starts to improve prior to switching back to PO apixaban. IVC filter is still in place from 6 years ago. No clinical evidence of PE at this time. Per podiatry to attempt bone biopsy prior to switching back to apixaban. (2) Chronic refractory osteomyelitis of ankle: Plan: Recently she was ordered a right ankle MRI by her ID specialist. This DVT may certainly have been provoked by an underlying infection here, along with sedentary behavior. Persistent osteo seen. Hold additional abx at this time pending bone biopsy results. ID consulted and is requesting a bone biopsy-this was requested of Dr. Velasco, her histology assistant. (3) Chronic ulcer of right foot: Plan: chronic, appears to be doing well. She follows with the wound clinic locally. Per wound RN will not continue with the wound vac at this time. (4) HX: breast cancer: Plan: noted limb restriction on the left arm (5) Chronic anemia: Plan: chronic, stable. Cont to monitor. Denies any issues with bleeding. (6) Paroxysmal atrial fibrillation: Plan: Currently in sinus rhythm. Hold apixaban while on heparin drip. Cont metoprolol per home regimen. (7) Hypertension: Plan: chronic, stable. Cont current therapy. (8) Multiple sclerosis: Plan: chronic, stable. She is very sedentary per her report. Chronic ongoing baclofen pump and on scheduled tizanidine. continue Aubagio per home regimen, also. Neurogenic bladder ongoing. She typically self-catheterizes during the day then uses a salcedo catheter at night. Will place a urinary catheter for now. Cont Ditropan per home regimen. (9) CAD (coronary artery disease): Plan: chronic, stable. Cont medications per home regimen. (10) Neurogenic bladder: Plan: chronic, intermittent catheterization at home. Patient requested to place Salcedo while she was admitted for comfort. Remove prior to discharge. (11) Presence of intrathecal pump: Plan: Reports no longer taking intermittent baclofen. Cont scheduled tizanidine per home regimen. (12) S/P IVC filter: Plan: as noted above. DVT proph: heparin drip (on hold for surgery) Full Code Dispo-telemetry Admission and Anticipated Discharge Date Admission Date: September 17, 2023 Subjective 72 year-old female with recent history of noncompliance with apixaban presents with acute left lower extremity DVT. Patient denies any pain in her extremities today. Continues to report improvement in her left leg. Patient otherwise tolerating p.o., afebrile and feeling well. Plan for OR w/ podiatry, Dr. Velasco today Review of Systems Review of Systems: All systems reviewed & are unremarkable except as noted in Subjective Physical Exam Physical Exam: CONSTITUTIONAL: WNWD, F in NAD EYES: pupils are round and equal bilaterally, normal conjunctivae, no scleral icterus ENT: external ear and nose normal, MMM NECK: trachea midline RESPIRATORY: clear to auscultation bilaterally, no crackles, rales or wheezes, normal respiratory effort CARDIOVASCULAR: regular rate and rhythm,S1/2 heard with 3/6 MARIN heard across precordium, trace peripheral edema in bilateral lower extremities. CHEST: inspection of chest was normal GASTROINTESTINAL: soft, nontender, ND, no guarding MUSCULOSKELETAL:head is normocephalic and atraumatic, moves extremities SKIN: warm and dry, there is a dusky dark purple hue to her left foot that is still present and includes the foot and the lower extremity on the left. She does have wounds present on her lateral right ankle that is slightly draining. Wound VAC is not recommended to replace. NEURO/PSYCH: awake, alert, answers appropriately, speech fluent, moves extremities Results & Data Results & Data Vital Signs (Past 12 Hours) Vital Signs Temp Pulse Resp BP Pulse Ox O2 Del Method 09/21/23 08:28 37.0 C 77 18 135/83 94 Room Air 09/21/23 00:06 36.5 C 74 16 106/69 95 Room Air 09/20/23 22:25 36.6 C 85 18 107/72 98 Room Air Laboratory Results 09/21/23 09/21/23 09/21/23 Range/Units 07:36 07:36 07:31 WBC 4.96 (4.8-10.8) K/ul RBC 3.33 L (4.20-5.40) M/uL Hgb 9.3 L (12.0-16.0) g/dl Hct 29.4 L (37.0-47.0) % MCV 88.3 (80.0-100.0) fL MCH 27.9 (25.0-34.0) pg MCHC 31.6 L (32.0-36.0) g/dL RDW Std Deviation 52.0 H (36.4-46.3) fL RDW Coeff of Tiffanie 16.2 H (11.5-14.5) % Plt Count 233 (130-400) K/uL MPV 11.6 (9.4-12.4) fL APTT 23.3 (21.0-31.0) Seconds PTT Ratio 0.8 Sodium 140 (136-145) mmol/L Potassium 4.5 (3.5-5.1) mmol/L Chloride 106 (98-107) mmol/L Carbon Dioxide 29 (21-32) mmol/L Anion Gap 5 (3-11) BUN 19 (6-23) mg/dl Creatinine 0.83 (0.6-1.2) mg/dl Est Cr Clr Drug Dosing 52.2 ml/min Est GFR ( Amer) 82.8 ml/min Est GFR (Non-Af Amer) 71.4 ml/min BUN/Creatinine Ratio 22.9 H (10-20) Glucose 82 (70-99(Fasting)) mg/dl Calcium 9.0 (8.6-10.3) mg/dl Phosphorus 3.8 (2.5-4.9) mg/dl Magnesium 1.8 (1.7-2.4) mg/dl Medications Administered Current Inpatient Medications Acetaminophen (Acetaminophen 325 Mg Tab) 650 mg PO Q4H PRN PRN Reason: Pain or Fever Stop: 10/17/23 16:32 Atorvastatin Calcium (Atorvastatin 20 Mg Tab) 20 mg PO QAM [facility] Stop: 10/18/23 08:59 Last Admin: 09/20/23 08:46 Dose: 20 mg Baclofen (Baclofen Pain Pump) 0 pump IT UD [facility] Stop: 10/17/23 16:32 Doxycycline Hyclate (Doxycycline Hyclate 50 Mg Cap) 50 mg PO Q2D@0900 [facility] Stop: 10/18/23 08:59 Last Admin: 09/20/23 08:45 Dose: 50 mg Escitalopram Oxalate (Escitalopram Oxalate 20 Mg Tab) 20 mg PO QAM [facility] Stop: 10/18/23 08:59 Last Admin: 09/20/23 08:44 Dose: 20 mg Heparin Sodium/Dextrose (Heparin Sodium/Dextrose) 25,000 units in 500 mls @ 19 mls/hr IV .Q24H [facility]; Protocol Stop: 10/17/23 13:44 Last Titration: 09/20/23 23:17 Dose: Infused Melatonin (Melatonin 3 Mg Tab) 3 mg PO HS PRN PRN Reason: Insomnia Stop: 10/17/23 16:32 Last Admin: 09/20/23 20:56 Dose: 3 mg Metoprolol Tartrate (Metoprolol Tartrate 25 Mg Tab) 25 mg PO DAILY [facility] Stop: 10/18/23 08:59 Last Admin: 09/20/23 08:47 Dose: 25 mg Miscellaneous ((Azelaic Acid 15 % Gel) ~ Order Awaiting Action) 1 each N/A QS [facility] Stop: 10/18/23 00:00 Last Admin: 09/20/23 08:48 Dose: Not Given Aubagio 14mg ~ Non- Formulary Patient's Own Med 1 each PO QPM [facility] Stop: 10/17/23 20:59 Last Admin: 09/20/23 20:56 Dose: 1 each Oxybutynin Chloride (Oxybutynin Chloride Xl 5 Mg Tabcr) 15 mg PO QAM [facility] Stop: 10/18/23 08:59 Last Admin: 09/20/23 08:45 Dose: 15 mg Pantoprazole Sodium (Pantoprazole 40 Mg Tab) 40 mg PO QAM [facility] Stop: 10/18/23 08:59 Last Admin: 09/20/23 08:46 Dose: 40 mg Polyethylene Glycol (Polyethylene (Miralax) 17 Gm Pack) 17 gm PO DAILY PRN PRN Reason: Constipation Stop: 10/17/23 16:32 Prednisone (Prednisone 10 Mg Tablet) 10 mg PO QAM [facility] Stop: 10/17/23 16:32 Last Admin: 09/20/23 08:45 Dose: 10 mg Tizanidine HCl (Tizanidine Hcl 4 Mg Tablet) 4 mg PO QID [facility] Stop: 10/17/23 17:59 Last Admin: 09/20/23 20:57 Dose: 4 mg Vitamin D (Cholecalciferol 1,000 Units 25 Mcg Tab) 1,000 units PO QAM [facility] Stop: 10/18/23 08:59 Last Admin: 09/20/23 08:47 Dose: 1,000 units (3) Chronic ulcer of right foot Non-pressure ulcer stage: unspecified non-pressure ulcer stage Qualified Code(s): L97.519 - Non-pressure chronic ulcer of other part of right foot with unspecified severity
[2023-09-21] MEDS: tiZANidine HCL 4 MG TABLET PO SCH ×4 (09:27→22:33)
[2023-09-21] MEDS: predniSONE 10 MG TABLET PO SCH (09:27)
[2023-09-21] MEDS: ATORVASTATIN 20 MG TAB PO SCH (09:27)
[2023-09-21] MEDS: OXYBUTYNIN CHLORIDE XL 5 MG TABCR PO SCH (09:27)
[2023-09-21] MEDS: PANTOprazole 40 MG TAB PO SCH (09:27)
[2023-09-21] MEDS: METOPROLOL TARTRATE 25 MG TAB PO SCH (09:27)
[2023-09-21] MEDS: ESCITALOPRAM OXALATE 20 MG TAB PO SCH (09:27)
[2023-09-21] MEDS: CHOLECALCIFEROL 1,000 UNITS 25 MCG TAB PO SCH (09:27)
[2023-09-21 10:04] LABS: BUN Creatinine Ratio 22.9 (10-20); Creatinine Clr Calc Pharmacy 52.2 ml/min; Est GFR (African American) 82.8 ml/min; Est GFR (Non-African American) 71.4 ml/min; Magnesium 1.8 mg/dl (1.7-2.4); Phosphorus 3.8 mg/dl (2.5-4.9); Potassium 4.5 mmol/L (3.5-5.1)
[2023-09-21 10:06] LABS: Hematocrit (blood only) 29.4 % (37.0-47.0); Hemoglobin 9.3 g/dl (12.0-16.0); Mean Corpuscular Hemoglobin 27.9 pg (25.0-34.0); Mean Corpuscular Hgb Conc 31.6 g/dL (32.0-36.0); Mean Corpuscular Volume 88.3 fL (80.0-100.0); Mean Platelet Volume 11.6 fL (9.4-12.4); Platelet Count 233 K/uL (130-400); RDW Coefficient of Variation 16.2 % (11.5-14.5); Red Blood Count 3.33 M/uL (4.20-5.40); White Blood Count 4.96 K/ul (4.8-10.8)
[2023-09-21] MEDS ORDERED: ONDANSETRON INJ 2 MG/ML 2 ML VIAL IV PRN (17:02)
[2023-09-21] MEDS ORDERED: fentaNYL citrate PF 100 MCG/2 ML VIAL IV PRN (17:02)
[2023-09-21] MEDS ORDERED: ePHEDrine sulfate 50 MG/ML AMP IV PRN (17:02)
[2023-09-21] MEDS ORDERED: ATROPINE SULFATE 0.1 MG/ML 10ML SYR IV PRN (17:02)
--- NOTE | 2023-09-21 17:02 | Anesthesiology Consultation ---
Date of Service September 21, 2023 Assessment & Plan ASA ASA3 Proposed Anesthesia Anesthesia Type: MAC Risk / Benefits Reviewed With: PT / POA / Parent / Guardian, Accepts Plan and Informed Consent Obtained History Surgery Operation Date: 09/21/23 07:00 Proposed Procedures p Right Fibula Partial Excision Debridement - Andrea Velasco, FRANKLIN[place], [place] Height/Weight Height: 5 ft 3 in Weight: 62.1 kg Allergies Allergy/AdvReac Type Severity Reaction Status Date / Time No Known Allergies Allergy Verified 09/14/23 13:17 Medications Home Medications Medication Instructions Recorded Confirmed Last Taken cholecalciferol (vitamin D3) 25 1,000 units PO QAM 09/18/18 09/17/23 11/02/22 mcg (1,000 unit) capsule escitalopram oxalate 20 mg tablet 20 mg PO QAM 09/18/18 09/17/23 05/08/23 09:00 (Lexapro) oxybutynin chloride 15 mg 15 mg PO QAM 09/18/18 09/17/23 05/08/23 09:00 tablet,extended release 24 hr prednisone 10 mg tablet 10 mg PO QAM 09/18/18 09/17/23 05/08/23 09:00 omeprazole 40 mg capsule,delayed 40 mg PO QAM 07/06/21 09/17/23 05/08/23 09:00 release apixaban 5 mg tablet (Eliquis) 5 mg PO BID #60 tabs 07/09/21 09/17/23 08/04/23 22:00 teriflunomide 14 mg tablet 14 mg PO QPM 05/13/22 09/17/23 11/03/22 (Aubagio) tizanidine 4 mg tablet (Zanaflex) 4 mg PO QID 05/13/22 09/17/23 11/04/22 08:00 doxycycline hyclate 50 mg capsule 50 mg PO Q OTHER DAY Rosacea 08/10/22 09/17/23 05/07/23 azelaic acid 15 % topical gel 1 applic topical DAILY 10/21/22 09/17/23 10/20/22 acetaminophen 500 mg tablet 500 mg PO Q6H PRN Pain 03/05/23 09/17/23 Unknown melatonin 3 mg tablet 3 mg PO HS PRN Insomnia 03/05/23 09/17/23 Unknown multivitamin 1 tab PO DAILY 03/05/23 09/17/23 Unknown metoprolol tartrate 25 mg tablet 25 mg PO DAILY 05/08/23 09/17/23 05/08/23 09:00 atorvastatin 20 mg tablet (Lipitor) 20 mg PO QAM 08/04/23 09/17/23 Unknown Baclofen Pump 0 mg SC DIRECTED 08/05/23 09/17/23 Unknown amoxicillin 875 mg-potassium 1 tab PO DAILY 08/11/23 09/17/23 Unknown clavulanate 125 mg tablet Active Medications Generic Name Dose Route Start Last Admin Trade Name Freq PRN Reason Stop Dose Admin Atorvastatin Calcium 20 mg 09/18/23 09:00 09/21/23 09:27 Atorvastatin 20 Mg Tab PO 10/18/23 08:59 20 mg QAM MICHELLE Administration Doxycycline Hyclate 50 mg 09/18/23 09:00 09/20/23 08:45 Doxycycline Hyclate 50 Mg Cap PO 10/18/23 08:59 50 mg Q2D@0900 MICHELLE Administration Escitalopram Oxalate 20 mg 09/18/23 09:00 09/21/23 09:27 Escitalopram Oxalate 20 Mg Tab PO 10/18/23 08:59 20 mg QAM MICHELLE Administration Heparin Sodium/Dextrose 25,000 units in 500 mls @ 19 mls/hr 09/17/23 13:45 09/20/23 23:17 Heparin Sodium/Dextrose IV 10/17/23 13:44 Infused .Q24H MICHELLE Titration Protocol 950 UNITS/HR Melatonin 3 mg 09/17/23 16:33 09/20/23 20:56 Melatonin 3 Mg Tab PO 10/17/23 16:32 3 mg HS PRN Administration Insomnia Metoprolol Tartrate 25 mg 09/18/23 09:00 09/21/23 09:27 Metoprolol Tartrate 25 Mg Tab PO 10/18/23 08:59 25 mg DAILY MICHELLE Administration Miscellaneous 1 each 09/18/23 00:00 09/20/23 08:48 (Azelaic Acid 15 % Gel) ~ Order Awaiting Action N/A 10/18/23 00:00 Not Given QS MICHELLE Aubagio 14mg ~ Non- 1 each 09/17/23 21:00 09/20/23 20:56 Formulary Patient's PO 10/17/23 20:59 1 each Own Med QPM MICHELLE Administration Oxybutynin Chloride 15 mg 09/18/23 09:00 09/21/23 09:27 Oxybutynin Chloride Xl 5 Mg Tabcr PO 10/18/23 08:59 15 mg QAM MICHELLE Administration Pantoprazole Sodium 40 mg 09/18/23 09:00 09/21/23 09:27 Pantoprazole 40 Mg Tab PO 10/18/23 08:59 40 mg QAM MICHELLE Administration Prednisone 10 mg 09/17/23 16:33 09/21/23 09:27 Prednisone 10 Mg Tablet PO 10/17/23 16:32 10 mg QAM MICHELLE Administration Tizanidine HCl 4 mg 09/17/23 18:00 09/21/23 14:12 Tizanidine Hcl 4 Mg Tablet PO 10/17/23 17:59 4 mg QID MICHELLE Administration Vitamin D 1,000 units 09/18/23 09:00 09/21/23 09:27 Cholecalciferol 1,000 Units 25 Mcg Tab PO 10/18/23 08:59 1,000 units QAM MICHELLE Administration Past Medical History Medical History Anemia CAD (coronary artery disease) Non-obstructive per 06/2021 cardiac cath Fever GERD (gastroesophageal reflux disease) controlled, stable per pt History of blood transfusion History of DVT (deep vein thrombosis) ~6 yrs ago History of GI bleed Upper GIB (2019) felt 2/2 NSAID use History of non-ST elevation myocardial infarction (NSTEMI) 06/2021 (had heart cath, no stents) History of pulmonary embolism ~ 6 yrs ago, IVC filter still in place History of recent hospitalization 09/2022 [facility] - sepsis History of supraventricular tachycardia Hx of gastric ulcer 02/2021 HX: breast cancer Left breast cancer with surgery and chemo/radiation-left arm restriction Hypertension controlled, stable per pt Limb alert care status left arm Multiple sclerosis Follows with Dr. Walker/[facility] Stable Neurogenic bladder SELF CATH 2-3 X'S PER DAY *RECENT HOSPITALIZATION FOR UTI Osteoarthritis of right shoulder Osteoporosis Raynaud disease Exercise / Class Metabolic Activity II 4-5 Yardwork/Stairs/Walk up hill Past Family History Family History Mother Heart disorder Other No family history of adverse response to anesthesia Past Surgical History Surgical History H/O left mastectomy with lymph node removal>LEFT ARM RESTRICTION History of appendectomy History of cardiac cath Cardiac cath (07/06/21; [facility]) > Right dominant coronary system. No evidence of aortic stenosis. Normal left ventricular filling pressures. Nonobstructive disease involving the ostial LAD. No evidence of acute coron sumit syndrome. Approximately 50% ostial stenosis of the LAD. There was some very mild disease at the ostium of the left circumflex. Recommendations: Medical management. History of colonoscopy History of esophagogastroduodenoscopy (EGD) History of open reduction and internal fixation (ORIF) procedure "left hip" History of tooth extraction Presence of intrathecal pump baclofen pump in place--status post revision/replacement 08/10/2022 S/P IVC filter S/P partial hysterectomy S/p reverse total shoulder arthroplasty right: 05/25/22 LMA#4. No postop issues per anesthesia progress note. Past Anesthesia History No Hx of Anesthesia Complications and No Family Hx of Anesthesia Complications History of PONV No Hx of PONV and No Hx of Motion Sickness Social History Smoking Status: Former smoker tobacco type: cigarettes Smoking cigarettes per day: stopped in 1977 Do You Dip or Chew Tobacco: No Hx Alcohol Use: No Alcohol type: wine alcohol intake frequency: holidays/special occasions only Hx Substance Use: No substance use type: does not use Review of Systems denies fever/cough/ colds/ chest pain/ SOB/ MAAME denies MAAME Physical Exam Vital Signs Last Vital Signs Temp 36.5 C 09/21/23 15:16 Pulse 89 09/21/23 15:16 Resp 18 09/21/23 15:16 BP 103/70 09/21/23 15:16 Pulse Ox 95 09/21/23 15:16 O2 Del Method Room Air 09/21/23 15:16 ENMT Mouth: no TMJ abnormality and no dentition abnormality Thyromental Distance: > or= 3.5 Finger Breadths Mallampati Class: II Neck neck extension not limited Respiratory normal respiratory effort; no respiratory distress Auscultation: lungs clear to auscultation bilaterally Cardiovascular Rate/Rhythm: regular rate and regular rhythm Heart Sounds: + murmur Neurologic moves all extremities Psychiatric Orientation: alert and oriented x 3 Testing Laboratory Results 09/21/23 07:36 09/21/23 07:36 PT 11.1 Seconds (9.0-12.0) 09/17/23 12:27 INR 1.0 (0.9-1.1) 09/17/23 12:27 APTT 23.3 Seconds (21.0-31.0) 09/21/23 07:31
[2023-09-21] MEDS ORDERED: BUPIVACAINE 0.5 % 5 MG/1 ML MPF 30ML VIAL ONE (17:13)
[2023-09-21] MEDS ORDERED: LIDOCAINE 2% 2 ML VIAL/AMP(20MG/ML) INFIL ONE (17:14)
[2023-09-21] MEDS ORDERED: fentaNYL citrate PF 100 MCG/2 ML VIAL ONE (17:14)
[2023-09-21] MEDS ORDERED: MIDAZOLAM HCL 1 MG/ML 2ML VIAL ONE (17:14)
--- NOTE | 2023-09-21 17:23 | History & Physical Bridge Note ---
Date of Service September 21, 2023 History & Physical Bridge Note I have examined the patient, reviewed the History & Physical and in the interval since the performance of the History & Physical I have noted the following changes of clinical significance: no changes noted
[2023-09-21] MEDS ORDERED: PROPOFOL IV EMULSION 10 MG/ML 20 ML VIAL IV ONE (17:47)
[2023-09-21] MEDS ORDERED: ceFAZolin 330 MG/ML 1 GM VIAL ONE (17:47)
[2023-09-21] MEDS ORDERED: ceFAZolin 2000MG 2,000 MG/15 ML SYR IV ONE (18:32)
--- NOTE | 2023-09-21 18:45 | Post Operative Brief Note ---
Immediate Post Op Note v1 Date of Surgery September 21, 2023 Pre & Post Diagnosis Operation Date: 09/21/23 07:00 Pre-Op Diagnosis: Osteomyelitis in the Distal Fibula Post-Op Diagnosis: Osteomyelitis in the Distal Fibula I identified the patient and participated in the time-out.: Yes Procedure Operation Date: 09/21/23 07:00 Actual Procedures p Partial Excision Right Fibula - Andrea Velasco DPM, MS Surgeon Andrea Velasco DPM, MS Lighting Technician none Estimated Blood Loss 20 Findings Consistent with Post-Op Diagnosis none Specimens Deep culture swab - microbiology Right fibula - microbiology Right fibula - pathology Drains Cruz Drain
--- NOTE | 2023-09-21 19:00 | Anesthesiology Progress Note ---
Date of Service September 21, 2023 Anesthesia Post Procedure Vital Signs Vital Signs: Temp Pulse Pulse Resp BP Pulse Ox O2 Del Method 09/21/23 18:55 36.5 C 72 13 151/92 H 95 Room Air 09/21/23 18:45 72 12 138/86 98 Room Air 09/21/23 18:35 36.1 C L 78 14 116/79 99 Nasal Cannula 09/21/23 16:45 36.7 C 76 16 130/101 H 95 Room Air 09/21/23 15:16 36.5 C 89 18 103/70 95 Room Air 09/21/23 08:28 37.0 C 77 18 135/83 94 Room Air 09/21/23 00:06 36.5 C 74 16 106/69 95 Room Air 09/20/23 22:25 36.6 C 85 18 107/72 98 Room Air 09/20/23 19:26 36.3 C L 80 18 126/82 97 Room Air O2 Flow Rate 09/21/23 18:55 09/21/23 18:45 09/21/23 18:35 3 09/21/23 16:45 09/21/23 15:16 09/21/23 08:28 09/21/23 00:06 09/20/23 22:25 09/20/23 19:26 Transfer of Care Handoff Completed per policy Notes Mental Status: alert / awake / arousable and participated in evaluation Patient Amnestic to Procedure: Yes Nausea / Vomiting: adequately controlled Pain: adequately controlled Airway Patency, RR, SpO2: stable & adequate BP & HR: stable & adequate Hydration State: stable & adequate Anesthetic Complications: no major complications apparent and Pt Satisfied with anesthetic care
[2023-09-21] MEDS: AUBAGIO 14 MG PO SCH (19:39)
--- NOTE | 2023-09-21 20:51 | Operative Report ---
Post Operative Report Pre & Post Diagnosis Operation Date: 09/21/23 07:00 Pre-Op Diagnosis: Osteomyelitis in the Distal Fibula Post-Op Diagnosis: Osteomyelitis in the Distal Fibula I identified the patient and participated in the time-out.: Yes Procedure Operation Date: 09/21/23 07:00 Actual Procedures p Partial Excision Right Fibula - Andrea Velasco DPM, MS Surgeon Andrea Velasco DPM, MS Used Car Make Ready Mechanic none Estimated Blood Loss 20 Findings Consistent with Post-Op Diagnosis none Specimens 1. Deep swab right ankle 2. Right fibula - pathology 3. Right fibula - microbiology Description of Procedure History of present illness: Patient is a 72 year old female who is seen for treatment of right ankle wound and right fibula osteomyelitis. I reviewed wound excision and partial excision of distal. All questions answered. Discussed procedure in detail and postoperative recovery. All potential risks, benefits, complications, alternatives, rehab, potential for incomplete relief of symptoms, need for further surgery, DVT, PE, , persistent pain, swelling, scarring, weakness, neurovascular, wound complications and potential for amputations were discussed with patient. Unwanted outcomes such as, but not limited to were reviewed including under correction, overcorrection, return of deformity, infection. All questions were answered. Patient has decided to proceed with procedure as indicated. Preoperative diagnosis: 1.) Right ankle non healing wound 2.) Right fibula osteomyelitis Postoperative diagnosis: same Name of operation: 1.) Right ankle wound excision 2.) Right partial excision of fibula Surgeon Dr. Velasco Used Car Make Ready Mechanic: None Anesthesia: local with monitored anesthesia care Hemostasis: pneumatic calf tourniquet Estimated blood loss: minimal Procedure in detail: Under mild sedation the patient was brought in the operating room placed on the operating table in supine position. A pneumatic calf tourniquet was then placed about the patient's right ankle. The foot and ankle were then prepped scrubbed and draped in usual aseptic manner. An Esmarch bandage was utilized to exsanguinate the patient's right foot and the pneumatic calf tourniquet was then inflated. Attention was then directed to an ulcer on the lateral right ankle. Wound measures approximately 1.5 x 2 x 1 cm. Utilizing a sharp, sterile, #15 blade the wound bed is excised and voided of nonviable tissue. A sharp #15 blade was used to elongate the excised ulcer proximal and distal to expose the distal fibula. The base of the wound invades the lateral fibula. The distal fibula cortex was noted as soft and fragmented. At this time utilizing an oscillating bone saw, partial excision of the distal fibula was done. A portion of the excised bone was sent to microbiology for culture and sensitivities. A portion was also sent to Pathology. A deep wound culture swap was also taken. 1 L of lactated Ringer was then used to irrigate with low flow into the wounds. The skin was then primary closed utilizing 3-0 nylon in horizontal suture technique. The wound was dressed with dressing consisting of 4 x 4's Geo, Kerlix, ABD, and Joni. The pneumatic calf tourniquet was deflated and a prompt hyperemic response was noted to digits of the right foot. The Patient tolerated the procedure and anesthesia well. She was transferred to recovery room vital signs stable. Following a period of postoperative monitoring the patient will be readmitted to floor with the continuation of all preoperative orders. I attest to the content of the Intraoperative Record and any orders documented therein. Any exceptions are noted below.
[2023-09-21] MEDS: ACETAMINOPHEN 325 MG TAB PO PRN (22:30)
[2023-09-21] MEDS: MELATONIN 3 MG TAB PO PRN (22:34)
[2023-09-22 08:01] LABS: Hematocrit (blood only) 31.1 % (37.0-47.0); Hemoglobin 9.6 g/dl (12.0-16.0); Mean Corpuscular Hemoglobin 27.8 pg (25.0-34.0); Mean Corpuscular Hgb Conc 30.9 g/dL (32.0-36.0); Mean Corpuscular Volume 90.1 fL (80.0-100.0); Mean Platelet Volume 10.3 fL (9.4-12.4); Platelet Count 212 K/uL (130-400); RDW Coefficient of Variation 16.3 % (11.5-14.5); RDW Standard Deviation 53.6 fL (36.4-46.3); Red Blood Count 3.45 M/uL (4.20-5.40); White Blood Count 6.01 K/ul (4.8-10.8)
[2023-09-22 08:38] LABS: BUN Creatinine Ratio 27.2 (10-20); Calcium 8.9 mg/dl (8.6-10.3); Creatinine Clr Calc Pharmacy 53.5 ml/min; Est GFR (African American) 85.3 ml/min; Est GFR (Non-African American) 73.6 ml/min; Magnesium 1.8 mg/dl (1.7-2.4); Phosphorus 4.8 mg/dl (2.5-4.9); Potassium 4.3 mmol/L (3.5-5.1)
[2023-09-22] MEDS: ATORVASTATIN 20 MG TAB PO SCH (09:27)
[2023-09-22] MEDS: CHOLECALCIFEROL 1,000 UNITS 25 MCG TAB PO SCH (09:27)
[2023-09-22] MEDS: DOXYCYCLINE HYCLATE 50 MG CAP PO SCH (09:27)
[2023-09-22] MEDS: ESCITALOPRAM OXALATE 20 MG TAB PO SCH (09:27)
[2023-09-22] MEDS: PANTOprazole 40 MG TAB PO SCH (09:28)
[2023-09-22] MEDS: tiZANidine HCL 4 MG TABLET PO SCH ×4 (09:28→21:38)
[2023-09-22] MEDS: METOPROLOL TARTRATE 25 MG TAB PO SCH (09:28)
[2023-09-22] MEDS: predniSONE 10 MG TABLET PO SCH (09:28)
[2023-09-22] MEDS: OXYBUTYNIN CHLORIDE XL 5 MG TABCR PO SCH (09:28)
[2023-09-22] MEDS: ACETAMINOPHEN 325 MG TAB PO PRN ×2 (10:58→22:13)
[2023-09-22] MEDS: HEPARIN SODIUM/DEXTROSE 25,000 UNITS/500 ML BAG IV SCH (10:58)
[2023-09-22] MEDS: Heparin IV Adult Wt-Based Low-Dose *NO* INITIAL Bolus Protocol IV SCH ×2 (11:02→11:05)
--- NOTE | 2023-09-22 16:32 | Hospitalist Progress Note ---
Date of Service September 22, 2023 Assessment & Plan (1) Acute deep vein thrombosis of left lower extremity: Plan: Was out of apixaban at home, - pt says her daughter picked it up and she now has it at home. IVC filter is still in place from 6 years ago. No clinical evidence of PE at this time. POD #1 s/p Partial Excision Right Fibula by Dr. Velasco Podiatry okay to resume IV heparin today, will need to transition back to Eliquis prior to discharge (2) Chronic refractory osteomyelitis of ankle: Plan: Recently she was ordered a right ankle MRI by her ID specialist. This DVT may certainly have been provoked by an underlying infection here, along with sedentary behavior. Persistent osteo seen. ID consulted and is requesting a bone biopsy-this was requested of Dr. 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 She follows with the wound clinic locally. Per wound RN will not continue with the wound vac at this time. (4) HX: breast cancer: Plan: noted limb restriction on the left arm (5) Chronic anemia: Plan: chronic, stable. Cont to monitor. Denies any issues with bleeding (6) Paroxysmal atrial fibrillation: Plan: Currently in sinus rhythm. Hold apixaban while on heparin drip. Cont metoprolol per home regimen (7) Hypertension: Plan: chronic, stable. Cont current therapy. (8) Multiple sclerosis: Plan: chronic, stable. She is very sedentary per her report. Chronic ongoing baclofen pump and on scheduled tizanidine. continue Aubagio per home regimen, also. Neurogenic bladder ongoing. She typically self-catheterizes during the day then uses a salcedo catheter at night. Will place a urinary catheter for now. Cont Ditropan per home regimen. (9) CAD (coronary artery disease): Plan: chronic, stable. Cont medications per home regimen. (10) Neurogenic bladder: Plan: chronic, intermittent catheterization at home. Patient requested to place Salcedo while she was admitted for comfort. Remove prior to discharge. (11) Presence of intrathecal pump: Plan: Reports no longer taking intermittent baclofen. Cont scheduled tizanidine per home regimen. (12) S/P IVC filter: Plan: as noted above. DVT proph: heparin drip Full Code Dispo-med/surg Admission and Anticipated Discharge Date Admission Date: September 17, 2023 Supervising Physician Co-Signing Physician Notes Pt seen and examined by me, care coordinated w/ Mellisa Morales PA-C, pls refer to her note above for further detail. Pt underwent partial fibula excision yesterday w/ Dr. Velasco. She is feeling well today. No fever, chills, chest pain, shortness of breath. Continues to have some LLE edema. She was restarted on IV heparin. Awaiting cultures from OR. MD Alex Subjective 72 year-old female with recent history of noncompliance with apixaban presents with acute left lower extremity DVT. Endorsing some RLE discomfort following procedure yesterday. Otherwise no additional complaints overnight. No F/C, lightheadedness, CP, SOB, N,V, abd pain, dysuria, diarrhea or constipation. Bowel movement yesterday. Review of Systems Review of Systems: At least ten systems reviewed and negative except as noted in the HPI. Physical Exam Physical Exam: Gen: WD/WN, NAD, sitting in bedside chair brushing her hair, alert and answered questions appropriately HEENT: Normocephalic, atraumatic, conjunctivae moist, sclerae anicteric, mucous membranes moist Lung: Clear to Auscultation bilaterally, no wheezes/rales/rhonchi Heart: Regular rate, regular rhythm, no murmurs, rubs, or gallops Abdomen: Soft, NT, ND +BS x 4 : Salcedo Extremities:RLE surgical dressing c/d/i, no edema Skin: Warm, no rash Results & Data Results & Data Vital Signs (Past 12 Hours) Vital Signs Temp Pulse Resp BP Pulse Ox O2 Del Method 09/22/23 16:00 36.3 C L 94 H 18 117/75 95 Room Air 09/22/23 06:17 36.9 C 88 15 99/72 L 94 Room Air Laboratory Results Short CBC 09/22/23 Range/Units 07:33 WBC 6.01 (4.8-10.8) K/ul Hgb 9.6 L (12.0-16.0) g/dl Hct 31.1 L (37.0-47.0) % Plt Count 212 (130-400) K/uL BMP 09/22/23 07:33 Sodium 142 Potassium 4.3 Chloride 107 Carbon Dioxide 30 BUN 22 Creatinine 0.81 Glucose 89 Calcium 8.9 Diagnostic Findings Chest X-Ray 09/17/23 11:50 XR chest 1V portable CLINICAL HISTORY: Chest pain, nonspecific COMPARISON STUDY: Chest radiograph August 05, 2023. FINDINGS: Right shoulder arthroplasty is incidentally noted. There is no pneumothorax or pleural effusion. There is no evidence for pulmonary edema. No consolidation is identified. Hiatal hernia is incidentally noted. Cardiomediastinal is stable. IMPRESSION: No acute cardiopulmonary findings. ACT 112: Negative or not required by law. Electronically signed by: Scar Holden M.D. 09/17/2023 12:13 PM Duplex Scan Lower Extremity Artery 09/17/23 11:50 LEFT LOWER EXTREMITY ARTERIAL DOPPLER ULTRASOUND CLINICAL HISTORY: purple foot COMPARISON STUDY: Bilateral lower extremity arterial Doppler ultrasound May 12, 2023. TECHNIQUE: Grayscale and color and duplex Doppler sonography of the arterial system of the left lower extremity was performed. FINDINGS: Mild atherosclerotic plaque within the left lower extremity was noted. No elevated velocities were identified. Triphasic or biphasic flow within the left calf vessels was noted. The vessels were patent. IMPRESSION: No evidence for a hemodynamically significant stenosis within left lower extremity. Patent vessels. Mild atherosclerotic plaque. ACT 112: Negative or not required by law. Electronically signed by: Scar Holden M.D. 09/17/2023 1:10 PM Venous Doppler Study 09/17/23 11:51 LEFT LOWER EXTREMITY VENOUS DOPPLER CLINICAL HISTORY: Left lower extremity pain. Evaluate for deep venous thrombus. COMPARISON STUDY: Bilateral lower extremity venous Doppler ultrasound April 14, 2017. TECHNIQUE: Sonography of the deep venous system of the left lower extremity was performed. Compression and augmentation were evaluated. FINDINGS: Extensive deep venous thrombus within the left lower extremity is noted. There is deep venous thrombus within the left common femoral, superficial femoral and popliteal veins. There is also deep venous thrombus within the left calf veins. Left lower extremity edema is noted. IMPRESSION: Extensive deep venous thrombus within the left lower extremity. ACT 112: Negative or not required by law. Electronically signed by: Scar Holden M.D. 09/17/2023 1:02 PM Ankle MRI 09/18/23 00:00 MR ankle RT wo/w con CLINICAL HISTORY: h/o osteo on chronic supp therapy, req per ID TECHNIQUE: Multisequence, multiplanar MR images of the right ankle were obtained without contrast.. COMPARISON: Comparison is made to right ankle 05/09/2023 FINDINGS: Edema and enhancement in the lateral malleolus is unchanged from prior exam. Tendons in the anterior and posterior compartments of the leg are unremarkable. No joint effusion is seen. Soft tissue edema and enhancement are seen most prominently in the dorsal aspect of the ankle as well as the distal calf. No drainable fluid collection is seen. Redemonstration of lateral ulcer. IMPRESSION: Redemonstration of osteomyelitis in the distal fibula, similar in extent to prior exam. No new foci of disease are seen. Soft tissue edema and lateral ulcer without drainable fluid collection. ACT 112: Negative or not required by law. Electronically signed by: Morales Hanna M.D. 09/18/2023 8:50 PM KUB X-Ray 09/18/23 00:00 XR KUB/Abdomen 1 view CLINICAL HISTORY: to eval pain pump placement in prep for MRI TECHNIQUE: 1 view of the abdomen was obtained. Comparison: Comparison is made to abdomen radiographs 04/30/2023 FINDINGS: IVC filter is seen. The pain pump is in satisfactory appearance, unchanged from prior exam. Degenerative changes are seen with levoscoliosis of the lumbar spine. The bowel gas pattern is nonobstructive. A moderate amount of stool is noted within the large bowel. IMPRESSION: Satisfactory appearance of the pain pump. ACT 112: Negative or not required by law. Electronically signed by: Morales Hanna M.D. 09/18/2023 11:46 AM (3) Chronic ulcer of right foot Non-pressure ulcer stage: unspecified non-pressure ulcer stage Qualified Code(s): L97.519 - Non-pressure chronic ulcer of other part of right foot with unspecified severity
[2023-09-22] MEDS: AUBAGIO 14 MG PO SCH (21:38)
[2023-09-22] MEDS: MELATONIN 3 MG TAB PO PRN (22:14)
[2023-09-22] MEDS ORDERED: HEPARIN SOD (PORCINE) 1000 UNIT/ML IV ONE (22:15)
[2023-09-23 05:11] LABS: Hematocrit (blood only) 27.5 % (37.0-47.0); Hemoglobin 8.8 g/dl (12.0-16.0); Mean Corpuscular Volume 87.6 fL (80.0-100.0); Mean Platelet Volume 11.3 fL (9.4-12.4); Platelet Count 208 K/uL (130-400); RDW Standard Deviation 51.4 fL (36.4-46.3); Red Blood Count 3.14 M/uL (4.20-5.40); White Blood Count 5.52 K/ul (4.8-10.8)
[2023-09-23 05:40] LABS: BUN Creatinine Ratio 25.3 (10-20); Calcium 8.8 mg/dl (8.6-10.3); Creatinine Clr Calc Pharmacy 57.7 ml/min; Est GFR (African American) 93.6 ml/min; Est GFR (Non-African American) 80.8 ml/min; Magnesium 1.7 mg/dl (1.7-2.4); Phosphorus 3.3 mg/dl (2.5-4.9); Potassium 4.2 mmol/L (3.5-5.1)
[2023-09-23 06:51] LABS: Partial Thromboplastin Time 57.6 Seconds (21.0-31.0)
[2023-09-23] MEDS: tiZANidine HCL 4 MG TABLET PO SCH ×4 (08:50→20:29)
[2023-09-23] MEDS: PANTOprazole 40 MG TAB PO SCH (08:50)
[2023-09-23] MEDS: ATORVASTATIN 20 MG TAB PO SCH (08:51)
[2023-09-23] MEDS: ESCITALOPRAM OXALATE 20 MG TAB PO SCH (08:51)
[2023-09-23] MEDS: predniSONE 10 MG TABLET PO SCH (08:51)
[2023-09-23] MEDS: OXYBUTYNIN CHLORIDE XL 5 MG TABCR PO SCH (08:51)
[2023-09-23] MEDS: CHOLECALCIFEROL 1,000 UNITS 25 MCG TAB PO SCH (08:51)
[2023-09-23] MEDS: METOPROLOL TARTRATE 25 MG TAB PO SCH (08:51)
[2023-09-23] MEDS: ACETAMINOPHEN 325 MG TAB PO PRN (08:55)
--- NOTE | 2023-09-23 16:22 | Hospitalist Progress Note ---
Date of Service September 23, 2023 Assessment & Plan (1) Acute deep vein thrombosis of left lower extremity: Plan: Was out of apixaban at home, - pt says her daughter picked it up and she now has it at home. IVC filter is still in place from 6 years ago. No clinical evidence of PE at this time. POD #2 s/p Partial Excision Right Fibula by Dr. Velasco IV heparin resumed yesterday, in therapeutic range. Will need to transition back to Eliquis prior to discharge Discoloration of LLE noted this afternoon with patient with dusky appearance and edema with tight TEDs in place. Coloring improved with removal of TEDs and elevation of extremity. Warmed to touch, dopplerable DP and PT pulses, non-tender appearance. Cont to monitor closely, elevate, cont IV heparin, PT instructed to return for eval tmrw (2) Chronic refractory osteomyelitis of ankle: Plan: Recently she was ordered a right ankle MRI by her ID specialist. This DVT may certainly have been provoked by an underlying infection here, along with sedentary behavior Persistent osteo seen in the past ID recommending holding abx until cultures finalize - Wound cultures growing Corynebacterium, no sensitivities to follow ID requested bone biopsy-pending Per discussion with Dr. Velasco today, full weight bearing allowed, will require daily dressing changes, CM arranging HH at time of discharge Per Dr. Morales of ID, recommending 6 weeks of IV vanco (3) Chronic ulcer of right foot: Plan: Chronic, appears to be doing well. She follows with the wound clinic locally. Per wound RN will not continue with the wound vac at this time (4) HX: breast cancer: Plan: noted limb restriction on the left arm (5) Chronic anemia: Plan: chronic, stable. Cont to monitor. Denies any issues with bleeding (6) Paroxysmal atrial fibrillation: Plan: Currently in sinus rhythm. Hold apixaban while on heparin drip. Cont metoprolol per home regimen (7) Hypertension: Plan: chronic, stable. Cont current therapy. (8) Multiple sclerosis: Plan: chronic, stable. She is very sedentary per her report. Chronic ongoing baclofen pump and on scheduled tizanidine. continue Aubagio per home regimen, also. Neurogenic bladder ongoing. She typically self-catheterizes during the day then uses a salcedo catheter at night. Will place a urinary catheter for now. Cont Ditropan per home regimen. (9) CAD (coronary artery disease): Plan: chronic, stable. Cont medications per home regimen. (10) Neurogenic bladder: Plan: chronic, intermittent catheterization at home. Patient requested to place Salcedo while she was admitted for comfort. Remove prior to discharge. (11) Presence of intrathecal pump: Plan: Reports no longer taking intermittent baclofen. Cont scheduled tizanidine per home regimen. (12) S/P IVC filter: Plan: as noted above. DVT proph: heparin drip Full Code Dispo-med/surg Admission and Anticipated Discharge Date Admission Date: September 17, 2023 Supervising Physician Co-Signing Physician Notes Pt seen and examined by me, care coordinated w/ Mellisa Morales PA-C, pls refer to her note above for further detail. Pt underwent partial fibula excision w/ Dr. Velasco. She is feeling well overall. No fever, chills, chest pain, shortness of breath. Continues to have some LLE edema, today LLE noted w/ purple discoloration in her foot. She is able to move her toes and denies pain. pulses obtained by doppler at the bedside. TEds removed, recommended to keep LLE elevated. Foot is warm and discoloration seems improved. She was restarted on IV heparin yesterday. Discussed cultx from OR w/ ID as per ANTELMO Morales - pt may need 6 weeks of IV vancomycin. MD Alex Subjective 72 year-old female with recent history of noncompliance with apixaban presents with acute left lower extremity DVT. RLE more comfortable today, asking about discharge plans. Otherwise no additional complaints overnight. No F/C, lightheadedness, CP, SOB, N,V, abd pain, dysuria, diarrhea or constipation. Bowel movement 09/22 Review of Systems Review of Systems: At least ten systems reviewed and negative except as noted in the HPI. Physical Exam Physical Exam: Gen: WD/WN, NAD, patient lying in bed talking on phone with legs hanging to the side of bed, alert and answered questions appropriately HEENT: Normocephalic, atraumatic, conjunctivae moist, sclerae anicteric, mucous membranes moist Lung: Clear to Auscultation bilaterally, no wheezes/rales/rhonchi Heart: Regular rate, regular rhythm, no murmurs, rubs, or gallops Abdomen: Soft, NT, ND +BS x 4 : Salcedo Extremities: RLE surgical dressing c/d/i, no edema. LLE discolored and dusky appearance with edema, TEDs in place. Dopplerable DP and PT pulses, warm, no TTP, color improved with removal of teds, elevation Skin: Warm, no rash Results & Data Results & Data Vital Signs (Past 12 Hours) Vital Signs Temp Pulse Resp BP Pulse Ox O2 Del Method 09/23/23 15:19 36.4 C L 81 16 124/82 93 Room Air 09/23/23 07:40 36.9 C 89 16 127/79 94 Room Air Laboratory Results Short CBC 09/23/23 Range/Units 04:14 WBC 5.52 (4.8-10.8) K/ul Hgb 8.8 L (12.0-16.0) g/dl Hct 27.5 L (37.0-47.0) % Plt Count 208 (130-400) K/uL BMP 09/23/23 04:14 Sodium 138 Potassium 4.2 Chloride 105 Carbon Dioxide 28 BUN 19 Creatinine 0.75 Glucose 97 Calcium 8.8 Diagnostic Findings Chest X-Ray 09/17/23 11:50 XR chest 1V portable CLINICAL HISTORY: Chest pain, nonspecific COMPARISON STUDY: Chest radiograph August 05, 2023. FINDINGS: Right shoulder arthroplasty is incidentally noted. There is no pneumothorax or pleural effusion. There is no evidence for pulmonary edema. No consolidation is identified. Hiatal hernia is incidentally noted. Cardiomediastinal is stable. IMPRESSION: No acute cardiopulmonary findings. ACT 112: Negative or not required by law. Electronically signed by: Scar Holden M.D. 09/17/2023 12:13 PM Duplex Scan Lower Extremity Artery 09/17/23 11:50 LEFT LOWER EXTREMITY ARTERIAL DOPPLER ULTRASOUND CLINICAL HISTORY: purple foot COMPARISON STUDY: Bilateral lower extremity arterial Doppler ultrasound May 12, 2023. TECHNIQUE: Grayscale and color and duplex Doppler sonography of the arterial system of the left lower extremity was performed. FINDINGS: Mild atherosclerotic plaque within the left lower extremity was noted. No elevated velocities were identified. Triphasic or biphasic flow within the left calf vessels was noted. The vessels were patent. IMPRESSION: No evidence for a hemodynamically significant stenosis within left lower extremity. Patent vessels. Mild atherosclerotic plaque. ACT 112: Negative or not required by law. Electronically signed by: Scar Holden M.D. 09/17/2023 1:10 PM Venous Doppler Study 09/17/23 11:51 LEFT LOWER EXTREMITY VENOUS DOPPLER CLINICAL HISTORY: Left lower extremity pain. Evaluate for deep venous thrombus. COMPARISON STUDY: Bilateral lower extremity venous Doppler ultrasound April 14, 2017. TECHNIQUE: Sonography of the deep venous system of the left lower extremity was performed. Compression and augmentation were evaluated. FINDINGS: Extensive deep venous thrombus within the left lower extremity is noted. There is deep venous thrombus within the left common femoral, superficial femoral and popliteal veins. There is also deep venous thrombus within the left calf veins. Left lower extremity edema is noted. IMPRESSION: Extensive deep venous thrombus within the left lower extremity. ACT 112: Negative or not required by law. Electronically signed by: Scar Holden M.D. 09/17/2023 1:02 PM Ankle MRI 09/18/23 00:00 MR ankle RT wo/w con CLINICAL HISTORY: h/o osteo on chronic supp therapy, req per ID TECHNIQUE: Multisequence, multiplanar MR images of the right ankle were obtained without contrast.. COMPARISON: Comparison is made to right ankle 05/09/2023 FINDINGS: Edema and enhancement in the lateral malleolus is unchanged from prior exam. Tendons in the anterior and posterior compartments of the leg are unremarkable. No joint effusion is seen. Soft tissue edema and enhancement are seen most prominently in the dorsal aspect of the ankle as well as the distal calf. No drainable fluid collection is seen. Redemonstration of lateral ulcer. IMPRESSION: Redemonstration of osteomyelitis in the distal fibula, similar in extent to prior exam. No new foci of disease are seen. Soft tissue edema and lateral ulcer without drainable fluid collection. ACT 112: Negative or not required by law. Electronically signed by: Morales Hanna M.D. 09/18/2023 8:50 PM KUB X-Ray 09/18/23 00:00 XR KUB/Abdomen 1 view CLINICAL HISTORY: to eval pain pump placement in prep for MRI TECHNIQUE: 1 view of the abdomen was obtained. Comparison: Comparison is made to abdomen radiographs 04/30/2023 FINDINGS: IVC filter is seen. The pain pump is in satisfactory appearance, unchanged from prior exam. Degenerative changes are seen with levoscoliosis of the lumbar spine. The bowel gas pattern is nonobstructive. A moderate amount of stool is noted within the large bowel. IMPRESSION: Satisfactory appearance of the pain pump. ACT 112: Negative or not required by law. Electronically signed by: Morales Hanna M.D. 09/18/2023 11:46 AM (3) Chronic ulcer of right foot Non-pressure ulcer stage: unspecified non-pressure ulcer stage Qualified Code(s): L97.519 - Non-pressure chronic ulcer of other part of right foot with unspecified severity
[2023-09-23] MEDS: HEPARIN SODIUM/DEXTROSE 25,000 UNITS/500 ML BAG IV SCH (19:37)
[2023-09-23] MEDS ORDERED: VANCOMYCIN CONSULT ACTIVE PRN (19:59)
[2023-09-23] MEDS ORDERED: VANCOMYCIN HCL 1,500 MG in SODIUM CHLORIDE 0.9% 500 ML IV STA (20:13)
[2023-09-23] MEDS: MAGNESIUM OXIDE 400 MG TAB PO SCH (20:28)
[2023-09-23] MEDS: AUBAGIO 14 MG PO SCH ×2 (20:29→20:31)
--- NOTE | 2023-09-23 20:51 | Pharmacy Report ---
Pharmacy PK ABX Note - Date of Service September 23, 2023 - Assessment and Plan Assessment 72 year old F receiving IV Vancomycin for treatment of chronic refractory osteomyelitis of ankle. ID recommending 6 weeks of therapy. Day # 1 of antimicrobial therapy. Plan Vancomycin * Loading dose: 1500 mg (~24mg/kg) IV x 1 * Maintenance dose: 750 mg IV every 12 hours * Regimen is predicted to achieve target AUC/STEPHEN of 400-600 mg/L.hr * Trough level ordered for: 09/25/23 Pharmacy will continue to follow and will adjust dose/frequency as necessary. Thank you. Pharmacy has transitioned to AUC monitoring for vancomycin. AUC/STEPHEN is the preferred PK/PD target and is associated with decreased risk of nephrotoxicity compared to traditional trough targets.
--- NOTE | 2023-09-23 22:32 | Orthopedic Progress Note ---
Date of Service September 23, 2023 Assessment & Plan (1) Osteomyelitis of ankle: Plan: Patient seen and evaluated at bedside. Patient status post day#2 partial excision of right fibula (DOS: 09/21/23) Right fibula growing corynebacterium preliminary C&S. Awaiting pathology report. Thank you for involving me in the care of this Patient. (2) Leg wound, right: Admission and Anticipated Discharge Date Admission Date: September 17, 2023 Subjective Patient seen resting comfortably at bedside. Patient is status post day#2 (DOS: 09/21/23) partial excision of right fibula. Right fibula growing corynebacterium preliminary C&S. Review of Systems Review of Systems: All systems reviewed & are unremarkable except as noted in Subjective Physical Exam Constitutional: cooperative and comfortable Eyes: normal visual davidson by confrontation Neck: normal visual inspection Respiratory: normal respiratory effort Cardiovascular: Vessels: posterior tibial pulses present and dorsalis pedis pulses present Skin: + ulcer (right lateral ankle) Psychiatric: Orientation: alert and oriented x 3 Results & Data Vital Signs (Past 12 Hours) Vital Signs Temp Pulse Resp BP Pulse Ox O2 Del Method 09/23/23 15:19 36.4 C L 81 16 124/82 93 Room Air Diagnostic Findings [address], [place] [address] / Director: Shane De La Fuente M.D. Clinical Laboratory Report Name: NADEEN ANNE Acct: [id number] Status: ADM IN : 1950 [facility] Date: 09/17/23 Age: 72 Sex: F Dis Date: Loc: Medical/Surgical/Ortho [address] [place] [address]/Bed: N378-2 Spec: [id number] Collected: 09/21/23-UNK Received: 09/21/[address]: Andrea Velasco, DPM, MS Copy To: Solange Wall DO Source: Tissue,Undefined OV Order: Ordered: Aer/Silvina Cult/Sm Comments: Comment Right Fibula Procedure Result Verified Site Gram Stain Final 09/22/23 Gram Stain Result No Epithelial Cells No WBCs Seen No Organisms Seen Aero/Silvina Cult Preliminary 09/23/23 Organism 1 Corynebacterium species Quantity Few Sens No Sensitivities to Follow Name: NADEEN ANNE : 1950 PAGE 1 Printed: 09/23/23 2929 END OF REPORT
[2023-09-24 08:08] LABS: Hematocrit (blood only) 29.8 % (37.0-47.0); Hemoglobin 9.6 g/dl (12.0-16.0); Mean Corpuscular Hemoglobin 27.7 pg (25.0-34.0); Mean Corpuscular Hgb Conc 32.2 g/dL (32.0-36.0); Mean Corpuscular Volume 86.1 fL (80.0-100.0); Mean Platelet Volume 10.6 fL (9.4-12.4); Platelet Count 236 K/uL (130-400); RDW Coefficient of Variation 16.2 % (11.5-14.5); RDW Standard Deviation 50.4 fL (36.4-46.3); Red Blood Count 3.46 M/uL (4.20-5.40)
[2023-09-24 08:28] LABS: Calcium 8.9 mg/dl (8.6-10.3); Est GFR (African American) 92.1 ml/min; Est GFR (Non-African American) 79.5 ml/min; Magnesium 1.8 mg/dl (1.7-2.4); Phosphorus 3.1 mg/dl (2.5-4.9); Potassium 3.9 mmol/L (3.5-5.1)
[2023-09-24] MEDS: predniSONE 10 MG TABLET PO SCH (08:34)
[2023-09-24] MEDS: tiZANidine HCL 4 MG TABLET PO SCH ×4 (08:34→21:06)
[2023-09-24] MEDS: METOPROLOL TARTRATE 25 MG TAB PO SCH (08:35)
[2023-09-24] MEDS: DOXYCYCLINE HYCLATE 50 MG CAP PO SCH (08:35)
[2023-09-24] MEDS: ESCITALOPRAM OXALATE 20 MG TAB PO SCH (08:35)
[2023-09-24] MEDS: ATORVASTATIN 20 MG TAB PO SCH (08:35)
[2023-09-24] MEDS: MAGNESIUM OXIDE 400 MG TAB PO SCH ×2 (08:35→21:05)
[2023-09-24] MEDS: OXYBUTYNIN CHLORIDE XL 5 MG TABCR PO SCH (08:35)
[2023-09-24] MEDS: PANTOprazole 40 MG TAB PO SCH (08:36)
[2023-09-24] MEDS: CHOLECALCIFEROL 1,000 UNITS 25 MCG TAB PO SCH (08:36)
[2023-09-24 08:40] LABS: Partial Thromboplastin Ratio 1.2; Partial Thromboplastin Time 34.6 Seconds (21.0-31.0)
[2023-09-24] MEDS: VANCOMYCIN HCL 750 MG in SODIUM CHLORIDE 0.9% 250 ML IV SCH ×2 (10:36→22:11)
[2023-09-24 10:44] LABS: Partial Thromboplastin Time 28.4 Seconds (21.0-31.0)
[2023-09-24] MEDS ORDERED: HEPARIN IV BOLUS 2,000 UNITS in SYRINGE 0 ML IV ONE (11:30)
--- NOTE | 2023-09-24 13:49 | Hospitalist Progress Note ---
Date of Service September 24, 2023 Assessment & Plan (1) Acute deep vein thrombosis of left lower extremity: Plan: Was out of apixaban at home for some days Pt says her daughter picked it up and she now has it at home. IVC filter is still in place from 6 years ago. No clinical evidence of PE at this time. Currently on heparin drip Will need to transition to eliquis therapeutic dose prior to dc Monitor LLE swelling/perfusion (2) Chronic ulcer of right foot: (3) Chronic refractory osteomyelitis of ankle: Plan: Recently she was ordered a right ankle MRI by her ID specialist. Persistent osteo seen in the past Wound cultures growing Corynebacterium POD #3 s/p Partial Excision Right Fibula by Dr. Velasco Per Previous Provider, full weight bearing allowed, daily dressing changes Dr Johnson reported ID is recommending 6 weeks of IV vanco (4) HX: breast cancer: (5) Chronic anemia: Plan: Chronic Hb stable (6) Paroxysmal atrial fibrillation: Plan: Currently on heparin drip for DVT Cont metoprolol per home regimen (7) Hypertension: Plan: Stable (8) Multiple sclerosis: Plan: Chronic She is very sedentary per her report. Chronic ongoing baclofen pump and on scheduled tizanidine. Continue Aubagio per home regimen Neurogenic bladder. She typically self-catheterizes during the day then uses a salcedo catheter at night. Cont Ditropan per home regimen. (9) CAD (coronary artery disease): (10) Neurogenic bladder: Plan: chronic, intermittent catheterization at home. Patient requested to place Salcedo while she was admitted for comfort. Remove prior to discharge. (11) Presence of intrathecal pump: Plan: Reports no longer taking intermittent baclofen. Cont scheduled tizanidine per home regimen. (12) S/P IVC filter: Plan: as noted above. DVT proph: heparin drip Full Code Dispo-med/surg I spent a total of 55 minutes coordinating, documenting and providing care for this patient excluding time spent in performance of separately billed services Admission and Anticipated Discharge Date Admission Date: September 17, 2023 Subjective Patient seen and examined Denied any new complaints at this time Patient's LLE was reported to be dusky and edematous yesterday. Patient and RN reported this is much improved today RN also stated that daughter reported that the let foot has a baseline reddish purple color since she had surgery in the veins in the past Per RN, Left pedal and posterior pedal pulses are present with doppler Patient denied any pain, paresthesiaes or pain Physical Exam Constitutional: + well hydrated; no acute distress Eyes: PERRL, conjunctivae normal, anicteric sclerae ENMT: external ear and nose normal, oropharynx normal Respiratory: normal respiratory effort, lungs clear to auscultation Cardiovascular: Rate/Rhythm: + irregularly irregular S1 S2 Gastrointestinal (Abdomen): normal bowel sounds, soft, nontender, no hepatosplenomegaly Musculoskeletal: Right foot bandaged Left foot edematous and dusky. Normal sensation Neurologic: PERRL, EOMI, accommodation nl, no face palsy, no dysarthria Psychiatric: A+Ox3, euthymic affect Results & Data Results & Data Vital Signs (Past 12 Hours) Vital Signs Temp Pulse Resp BP Pulse Ox O2 Del Method 09/24/23 07:25 37.2 C 104 H 17 135/75 95 Room Air Laboratory Results Abnormal lab results 09/24/23 09/24/23 09/24/23 Range/Units 07:40 07:40 07:40 RBC 3.46 L (4.20-5.40) M/uL Hgb 9.6 L (12.0-16.0) g/dl Hct 29.8 L (37.0-47.0) % RDW Std Deviation 50.4 H (36.4-46.3) fL RDW Coeff of Tiffanie 16.2 H (11.5-14.5) % APTT 34.6 H (21.0-31.0) Seconds BUN/Creatinine Ratio 25.0 H (10-20) (2) Chronic ulcer of right foot Non-pressure ulcer stage: unspecified non-pressure ulcer stage Qualified Code(s): L97.519 - Non-pressure chronic ulcer of other part of right foot with unspecified severity
[2023-09-24 17:48] LABS: Partial Thromboplastin Ratio 1.4; Partial Thromboplastin Time 39.9 Seconds (21.0-31.0)
[2023-09-24] MEDS: AUBAGIO 14 MG PO SCH (21:06)
[2023-09-25 01:05] LABS: Partial Thromboplastin Ratio 1.5
[2023-09-25 01:13] LABS: Partial Thromboplastin Time 42.5 Seconds (21.0-31.0)
[2023-09-25] MEDS: HEPARIN SODIUM/DEXTROSE 25,000 UNITS/500 ML BAG IV SCH (01:17)
--- NOTE | 2023-09-25 07:46 | Hospitalist Progress Note ---
Date of Service September 25, 2023 Assessment & Plan (1) Acute deep vein thrombosis of left lower extremity: Plan: Was out of apixaban at home for some days Pt says her daughter picked it up and she now has it at home. IVC filter is still in place from 6 years ago. No clinical evidence of PE at this time. Currently on heparin drip Will need to transition to eliquis therapeutic dose prior to dc Monitor LLE swelling/perfusion (2) Chronic ulcer of right foot: (3) Chronic refractory osteomyelitis of ankle: Plan: Recently she was ordered a right ankle MRI by her ID specialist. Persistent osteo seen in the past Wound cultures growing Corynebacterium , await final results Now s/p Partial Excision Right Fibula by Dr. Velasco Per Previous Provider, full weight bearing allowed, daily dressing changes ID is recommending 6 weeks of IV vanco (4) HX: breast cancer: (5) Chronic anemia: Plan: Chronic Hb stable (6) Paroxysmal atrial fibrillation: Plan: Currently on heparin drip for DVT Cont metoprolol per home regimen (7) Hypertension: Plan: Stable (8) Multiple sclerosis: Plan: Chronic She is very sedentary per her report. Chronic ongoing baclofen pump and on scheduled tizanidine. Continue Aubagio per home regimen Neurogenic bladder. She typically self-catheterizes during the day then uses a salcedo catheter at night. Cont Ditropan per home regimen. (9) CAD (coronary artery disease): (10) Neurogenic bladder: Plan: chronic, intermittent catheterization at home. Patient requested to place Salcedo while she was admitted for comfort. Remove prior to discharge. (11) Presence of intrathecal pump: Plan: Reports no longer taking intermittent baclofen. Cont scheduled tizanidine per home regimen. (12) S/P IVC filter: Plan: as noted above. DVT proph: heparin drip Full Code Dispo-med/surg Admission and Anticipated Discharge Date Admission Date: September 17, 2023 Subjective Patient seen in follow up of LLE DVT, right ankle OM Denies any new complaints at this time Patient's LLE less edematous but there is still significant pedal edema RN also stated that daughter reported that the let foot has a baseline reddish purple color since she had surgery in the veins in the past Per RN, Left pedal and posterior pedal pulses are present with doppler Patient denies any pain, or paresthesias, able to move toes Discussed with RN - elevate LLE, can apply ice on and off to foot Review of Systems Review of Systems: All systems reviewed & are unremarkable except as noted in Subjective Physical Exam Physical Exam: CONSTITUTIONAL: WNWD, F in NAD EYES: pupils are round and equal bilaterally, normal conjunctivae, no scleral icterus ENT: external ear and nose normal, MMM NECK: trachea midline RESPIRATORY: clear to auscultation bilaterally, no crackles, rales or wheezes, normal respiratory effort CARDIOVASCULAR: regular rate and rhythm,S1/2 heard with 3/6 MARIN heard across precordium, trace peripheral edema in bilateral lower extremities. CHEST: inspection of chest was normal GASTROINTESTINAL: soft, nontender, ND, no guarding MUSCULOSKELETAL:head is normocephalic and atraumatic, moves extremities SKIN: warm and dry, purpleish hue to her left foot that is still present and includes the foot and the lower extremity on the left. She does have wounds present on her lateral right ankle that is slightly draining. NEURO/PSYCH: awake, alert, answers appropriately, speech fluent, moves extremities Results & Data Results & Data Vital Signs (Past 12 Hours) Vital Signs Temp Pulse Resp BP Pulse Ox O2 Del Method 09/24/23 20:12 36.8 C 75 18 114/73 97 Room Air Laboratory Results 09/25/23 09/24/23 09/24/23 Range/Units 00:25 17:19 09:38 WBC (4.8-10.8) K/ul RBC (4.20-5.40) M/uL Hgb (12.0-16.0) g/dl Hct (37.0-47.0) % MCV (80.0-100.0) fL MCH (25.0-34.0) pg MCHC (32.0-36.0) g/dL RDW Std Deviation (36.4-46.3) fL RDW Coeff of Tiffanie (11.5-14.5) % Plt Count (130-400) K/uL MPV (9.4-12.4) fL APTT 42.5 H* 39.9 H 28.4 (21.0-31.0) Seconds PTT Ratio 1.5 1.4 1.0 Sodium (136-145) mmol/L Potassium (3.5-5.1) mmol/L Chloride (98-107) mmol/L Carbon Dioxide (21-32) mmol/L Anion Gap (3-11) BUN (6-23) mg/dl Creatinine (0.6-1.2) mg/dl Est Cr Clr Drug Dosing ml/min Est GFR ( Amer) ml/min Est GFR (Non-Af Amer) ml/min BUN/Creatinine Ratio (10-20) Glucose (70-99(Fasting)) mg/dl Calcium (8.6-10.3) mg/dl Phosphorus (2.5-4.9) mg/dl Magnesium (1.7-2.4) mg/dl 09/24/23 09/24/23 09/24/23 Range/Units 07:40 07:40 07:40 WBC 7.20 (4.8-10.8) K/ul RBC 3.46 L (4.20-5.40) M/uL Hgb 9.6 L (12.0-16.0) g/dl Hct 29.8 L (37.0-47.0) % MCV 86.1 (80.0-100.0) fL MCH 27.7 (25.0-34.0) pg MCHC 32.2 (32.0-36.0) g/dL RDW Std Deviation 50.4 H (36.4-46.3) fL RDW Coeff of Tiffanie 16.2 H (11.5-14.5) % Plt Count 236 (130-400) K/uL MPV 10.6 (9.4-12.4) fL APTT 34.6 H (21.0-31.0) Seconds PTT Ratio 1.2 Sodium 139 (136-145) mmol/L Potassium 3.9 (3.5-5.1) mmol/L Chloride 105 (98-107) mmol/L Carbon Dioxide 29 (21-32) mmol/L Anion Gap 5 (3-11) BUN 19 (6-23) mg/dl Creatinine 0.76 (0.6-1.2) mg/dl Est Cr Clr Drug Dosing 57.0 ml/min Est GFR ( Amer) 92.1 ml/min Est GFR (Non-Af Amer) 79.5 ml/min BUN/Creatinine Ratio 25.0 H (10-20) Glucose 85 (70-99(Fasting)) mg/dl Calcium 8.9 (8.6-10.3) mg/dl Phosphorus 3.1 (2.5-4.9) mg/dl Magnesium 1.8 (1.7-2.4) mg/dl Medications Administered Current Inpatient Medications Acetaminophen (Acetaminophen 325 Mg Tab) 650 mg PO Q4H PRN PRN Reason: Pain or Fever Stop: 10/17/23 16:32 Last Admin: 09/23/23 08:55 Dose: 650 mg Atorvastatin Calcium (Atorvastatin 20 Mg Tab) 20 mg PO QAM [facility] Stop: 10/18/23 08:59 Last Admin: 09/24/23 08:35 Dose: 20 mg Baclofen (Baclofen Pain Pump) 0 pump IT UD [facility] Stop: 10/17/23 16:32 Doxycycline Hyclate (Doxycycline Hyclate 50 Mg Cap) 50 mg PO Q2D@0900 [facility] Stop: 10/18/23 08:59 Last Admin: 09/24/23 08:35 Dose: 50 mg Escitalopram Oxalate (Escitalopram Oxalate 20 Mg Tab) 20 mg PO QAM [facility] Stop: 10/18/23 08:59 Last Admin: 09/24/23 08:35 Dose: 20 mg Heparin Sodium/Dextrose (Heparin Sodium/Dextrose) 25,000 units in 500 mls @ 19 mls/hr IV .Q24H [facility]; Protocol Stop: 10/22/23 09:44 Last Titration: 09/25/23 06:55 Dose: 950 units/hr, 19 mls/hr Vancomycin HCl 750 mg/ Sodium (Chloride) 265 mls @ 200 mls/hr IV Q12H [facility] Stop: 11/05/23 09:59 Last Infusion: 09/24/23 23:41 Dose: Infused Magnesium Oxide (Magnesium Oxide 400 Mg Tab) 400 mg PO BID [facility] Stop: 10/23/23 20:59 Last Admin: 09/24/23 21:05 Dose: 400 mg Melatonin (Melatonin 3 Mg Tab) 3 mg PO HS PRN PRN Reason: Insomnia Stop: 10/17/23 16:32 Last Admin: 09/22/23 22:14 Dose: 3 mg Metoprolol Tartrate (Metoprolol Tartrate 25 Mg Tab) 25 mg PO DAILY [facility] Stop: 10/18/23 08:59 Last Admin: 09/24/23 08:35 Dose: 25 mg Miscellaneous ((Azelaic Acid 15 % Gel) ~ Order Awaiting Action) 1 each N/A QS [facility] Stop: 10/18/23 00:00 Last Admin: 09/25/23 01:20 Dose: Not Given Miscellaneous Information (Vancomycin Consult Active) 1 each N/A UD PRN PRN Reason: Consult Stop: 10/23/23 19:58 Aubagio 14mg ~ Non- Formulary Patient's Own Med 1 each PO QPM [facility] Stop: 10/17/23 20:59 Last Admin: 09/24/23 21:06 Dose: Not Given Oxybutynin Chloride (Oxybutynin Chloride Xl 5 Mg Tabcr) [facility]: 10/18/23 08:59 Last Admin: 09/24/23 08:35 Dose: 15 mg Pantoprazole Sodium (Pantoprazole 40 Mg Tab) [facility] [place]: 10/18/23 08:59 Last Admin: 09/24/23 08:36 Dose: 40 mg Polyethylene Glycol (Polyethylene (Miralax) 17 Gm Pack) 17 gm PO DAILY PRN PRN Reason: Constipation Stop: 10/17/23 16:32 Prednisone (Prednisone 10 Mg Tablet) 10 mg PO [facility] Stop: 10/17/23 16:32 Last Admin: 09/24/23 08:34 Dose: 10 mg Tizanidine HCl (Tizanidine Hcl 4 Mg Tablet) 4 mg PO QID [facility] Stop: 10/17/23 17:59 Last Admin: 09/24/23 21:06 Dose: 4 mg Vitamin D (Cholecalciferol 1,000 Units 25 Mcg Tab) 1,000 [facility] [place]: 10/18/23 08:59 Last Admin: 09/24/23 08:36 Dose: 1,000 units (2) Chronic ulcer of right foot Non-pressure ulcer stage: unspecified non-pressure ulcer stage Qualified Code(s): L97.519 - Non-pressure chronic ulcer of other part of right foot with unspecified severity
[2023-09-25] MEDS: predniSONE 10 MG TABLET PO SCH (08:44)
[2023-09-25] MEDS: OXYBUTYNIN CHLORIDE XL 5 MG TABCR PO SCH (08:45)
[2023-09-25] MEDS: ESCITALOPRAM OXALATE 20 MG TAB PO SCH (08:45)
[2023-09-25] MEDS: ATORVASTATIN 20 MG TAB PO SCH (08:45)
[2023-09-25] MEDS: MAGNESIUM OXIDE 400 MG TAB PO SCH ×2 (08:45→21:18)
[2023-09-25] MEDS: tiZANidine HCL 4 MG TABLET PO SCH ×4 (08:46→21:17)
[2023-09-25] MEDS: PANTOprazole 40 MG TAB PO SCH (08:46)
[2023-09-25] MEDS: METOPROLOL TARTRATE 25 MG TAB PO SCH (08:46)
[2023-09-25] MEDS: CHOLECALCIFEROL 1,000 UNITS 25 MCG TAB PO SCH (08:46)
[2023-09-25 09:13] LABS: Hematocrit (blood only) 31.4 % (37.0-47.0); Hemoglobin 9.9 g/dl (12.0-16.0); Mean Corpuscular Hemoglobin 27.6 pg (25.0-34.0); Mean Corpuscular Hgb Conc 31.5 g/dL (32.0-36.0); Mean Corpuscular Volume 87.5 fL (80.0-100.0); Mean Platelet Volume 10.9 fL (9.4-12.4); Platelet Count 271 K/uL (130-400); RDW Coefficient of Variation 16.2 % (11.5-14.5); RDW Standard Deviation 51.9 fL (36.4-46.3); Red Blood Count 3.59 M/uL (4.20-5.40); White Blood Count 6.47 K/ul (4.8-10.8)
[2023-09-25 09:23] LABS: BUN Creatinine Ratio 20.3 (10-20); Calcium 9.1 mg/dl (8.6-10.3); Creatinine Clr Calc Pharmacy 58.5 ml/min; Est GFR (African American) 95.1 ml/min; Est GFR (Non-African American) 82.1 ml/min; Magnesium 1.9 mg/dl (1.7-2.4); Phosphorus 3.5 mg/dl (2.5-4.9); Potassium 3.8 mmol/L (3.5-5.1)
[2023-09-25] MEDS ORDERED: VANCOMYCIN LEVEL ONE (09:30)
[2023-09-25 09:39] LABS: Partial Thromboplastin Ratio 1.3; Partial Thromboplastin Time 37.2 Seconds (21.0-31.0)
[2023-09-25] MEDS: VANCOMYCIN HCL 750 MG in SODIUM CHLORIDE 0.9% 250 ML IV SCH ×2 (11:09→21:33)
[2023-09-25 17:35] LABS: Partial Thromboplastin Ratio 1.3; Partial Thromboplastin Time 37.6 Seconds (21.0-31.0)
[2023-09-25] MEDS: TERIFLUNOMIDE 14 MG PO SCH (21:16)
[2023-09-26 01:05] LABS: Partial Thromboplastin Ratio 1.7
[2023-09-26 01:17] LABS: Partial Thromboplastin Time 48.5 Seconds (21.0-31.0)
[2023-09-26] MEDS: HEPARIN SODIUM/DEXTROSE 25,000 UNITS/500 ML BAG IV SCH ×2 (01:25→09:03)
[2023-09-26 07:44] LABS: Hematocrit (blood only) 28.7 % (37.0-47.0); Hemoglobin 8.8 g/dl (12.0-16.0); Mean Corpuscular Hemoglobin 27.1 pg (25.0-34.0); Mean Corpuscular Hgb Conc 30.7 g/dL (32.0-36.0); Mean Corpuscular Volume 88.3 fL (80.0-100.0); Platelet Count 269 K/uL (130-400); RDW Coefficient of Variation 15.9 % (11.5-14.5); RDW Standard Deviation 51.8 fL (36.4-46.3); Red Blood Count 3.25 M/uL (4.20-5.40); White Blood Count 5.09 K/ul (4.8-10.8)
[2023-09-26 08:02] LABS: BUN Creatinine Ratio 20.5 (10-20); Calcium 8.7 mg/dl (8.6-10.3); Creatinine Clr Calc Pharmacy 59.3 ml/min; Est GFR (African American) 96.7 ml/min; Est GFR (Non-African American) 83.4 ml/min; Magnesium 1.9 mg/dl (1.7-2.4); Phosphorus 3.4 mg/dl (2.5-4.9); Potassium 4.1 mmol/L (3.5-5.1)
[2023-09-26 08:31] LABS: Partial Thromboplastin Ratio 1.6
[2023-09-26 08:32] LABS: Partial Thromboplastin Time 45.4 Seconds (21.0-31.0)
[2023-09-26] MEDS: PANTOprazole 40 MG TAB PO SCH (08:56)
[2023-09-26] MEDS: MAGNESIUM OXIDE 400 MG TAB PO SCH ×2 (08:56→20:33)
[2023-09-26] MEDS: CHOLECALCIFEROL 1,000 UNITS 25 MCG TAB PO SCH (08:56)
[2023-09-26] MEDS: OXYBUTYNIN CHLORIDE XL 5 MG TABCR PO SCH (08:56)
[2023-09-26] MEDS: METOPROLOL TARTRATE 25 MG TAB PO SCH (08:56)
[2023-09-26] MEDS: predniSONE 10 MG TABLET PO SCH (08:56)
[2023-09-26] MEDS: ESCITALOPRAM OXALATE 20 MG TAB PO SCH (08:56)
[2023-09-26] MEDS: ATORVASTATIN 20 MG TAB PO SCH (08:56)
[2023-09-26] MEDS: tiZANidine HCL 4 MG TABLET PO SCH ×4 (08:57→20:33)
[2023-09-26] MEDS: DOXYCYCLINE HYCLATE 50 MG CAP PO SCH (08:57)
[2023-09-26] MEDS: VANCOMYCIN HCL 750 MG in SODIUM CHLORIDE 0.9% 250 ML IV SCH ×2 (09:47→22:22)
[2023-09-26] MEDS ORDERED: HEPARIN STOP ORDER ONE (10:15)
[2023-09-26] MEDS: APIXABAN 5 MG TABLET PO SCH ×2 (11:17→20:33)
--- NOTE | 2023-09-26 14:32 | Hospitalist Progress Note ---
Date of Service September 26, 2023 Assessment & Plan (1) Acute deep vein thrombosis of left lower extremity: Plan: History of prior DVT and PE s/p IVC filter, was out of apixaban at home for about 2 weeks -- [facility] from 6 years [facility]. No clinical evidence of PE at this time. 09/23 - Discoloration of LLE noted with dusky appearance and edema with tight TEDs in place. Coloring improved with removal of TEDs and elevation of extremity. Warm to touch, dopplerable DP and PT pulses. Swelling and color improved today Currently on heparin drip - transitioning to Eliquis today (2) Chronic ulcer of right foot: (3) Chronic refractory osteomyelitis of ankle: Plan: Recently she was ordered a right ankle MRI by her ID specialist --this was obtained on 09/18 while inpatient Right ankle MRI: Redemonstration of osteomyelitis in the distal fibula, similar in extent to prior exam. No new foci of disease are seen. Soft tissue edema and lateral ulcer without drainable fluid collection. 09/21-s/p partial excision right fibula by Dr. Velasco Operative cultures growing Corynebacterium Was on daily Augmentin prior to admission Now on IV Vanco (day 4) Per previous provider -ID recommending 6 weeks of IV Vanco; will ask for ID re- eval today now that cultures are final (4) Chronic anemia: Plan: Chronic, stable Hgb 8.8, at baseline (5) Paroxysmal atrial fibrillation: Plan: Heparin/Eliquis as above Continue metoprolol for rate control (6) Hypertension: Plan: Chronic, stable Continue metoprolol (7) CAD (coronary artery disease): Plan: Chronic, stable, no reports of chest pain Continue statin and beta-jenaro (8) Multiple sclerosis: (9) Neurogenic bladder: (10) Presence of intrathecal pump: Plan: Chronic She is very sedentary per her report. Chronic ongoing baclofen pump and on scheduled tizanidine. Continue Aubagio per home regimen Neurogenic bladder. She typically self-catheterizes during the day then uses a salcedo catheter at night. Patient requested to place Salcedo while she was admitted for comfort. Remove prior to discharge. Cont Ditropan per home regimen. DVT PROPHYLAXIS Heparin/Eliquis as above Dispo -pending, awaiting ID final recs regarding IV antibiotics, home with home health vs rehab, case management following Patient seen in collaboration with Dr. Johnson. Admission and Anticipated Discharge Date Admission Date: September 17, 2023 Supervising Physician Co-Signing Physician Notes Pt seen and examined by me, care coordinated w/ Mary Ann BROWN, pls refer to her note above for further detail. Pt underwent partial fibula excision w/ Dr. Velasco. She is feeling well overall. No fever, chills, chest pain, shortness of breath. Continues to have some LLE edema but overall seems improved, still has left pedal edema and some pinkish discoloration of foot. Foot is warm, pt has no pain, able to move toes w/o difficulty, no sensory loss. pulses obtained by doppler at the bedside. Recommended to keep LLE elevated. Switch IV heparin to eliquis. Discussed cultx from OR w/ ID - Dr. Morales- pt will need 6 weeks of IV vancomycin. MD Alex Subjective Follow-up for LLE DVT, chronic right ankle osteomyelitis. Patient seen and examined. Left leg swelling improving. Denies chest pain or shortness of breath. No abdominal pain or nausea. Review of Systems Review of Systems: All systems reviewed & are unremarkable except as noted in Subjective Physical Exam Constitutional: WD/WN, vitals as above no acute distress Respiratory: normal respiratory effort, lungs clear to auscultation Cardiovascular: Rate/Rhythm: regular rate and regular rhythm Heart Sounds: + murmur (Grade 2/6, systolic) Vessels: normal peripheral pulses Extremities: + edema (+2 edema LLE with reddish/purplish discoloration) Gastrointestinal (Abdomen): Percussion/Palpation: abdomen soft; abdomen nontender Skin: no rashes, warm and dry Neurologic: no focal motor deficits Psychiatric: A+Ox3, euthymic affect Results & Data Results & Data Vital Signs (Past 12 Hours) Vital Signs Temp Pulse Resp BP Pulse Ox O2 Del Method 09/26/23 06:50 36.8 C 92 H 18 115/74 94 Room Air Laboratory Results Short CBC 09/26/23 Range/Units 07:01 WBC 5.09 (4.8-10.8) K/ul Hgb 8.8 L (12.0-16.0) g/dl Hct 28.7 L (37.0-47.0) % Plt Count 269 (130-400) K/uL BMP 09/26/23 07:01 Sodium 139 Potassium 4.1 Chloride 106 Carbon Dioxide 28 BUN 15 Creatinine 0.73 Glucose 85 Calcium 8.7 Medications Administered Current Inpatient Medications Acetaminophen (Acetaminophen 325 Mg Tab) 650 mg PO Q4H PRN PRN Reason: Pain or Fever Stop: 10/17/23 16:32 Last Admin: 09/23/23 08:55 Dose: 650 mg Apixaban (Apixaban 5 Mg Tablet) 10 mg PO BID [facility] Stop: 10/02/23 21:01 Last Admin: 09/26/23 11:17 Dose: 10 mg Atorvastatin Calcium (Atorvastatin 20 Mg Tab) 20 mg PO QAM [facility] Stop: 10/18/23 08:59 Last Admin: 09/26/23 08:56 Dose: 20 mg Baclofen (Baclofen Pain Pump) 0 pump IT UD [facility] Stop: 10/17/23 16:32 Doxycycline Hyclate (Doxycycline Hyclate 50 Mg Cap) 50 mg PO Q2D@0900 [facility] Stop: 10/18/23 08:59 Last Admin: 09/26/23 08:57 Dose: 50 mg Escitalopram Oxalate (Escitalopram Oxalate 20 Mg Tab) 20 mg PO QAM [facility] Stop: 10/18/23 08:59 Last Admin: 09/26/23 08:56 Dose: 20 mg Vancomycin HCl 750 mg/ Sodium (Chloride) 265 mls @ 200 mls/hr IV Q12H [facility] Stop: 11/05/23 09:59 Last Infusion: 09/26/23 09:55 Dose: 0 mls/hr Magnesium Oxide (Magnesium Oxide 400 Mg Tab) 400 mg PO BID [facility] Stop: 10/23/23 20:59 Last Admin: 09/26/23 08:56 Dose: 400 mg Melatonin (Melatonin 3 Mg Tab) 3 mg PO HS PRN PRN Reason: Insomnia Stop: 10/17/23 16:32 Last Admin: 09/22/23 22:14 Dose: 3 mg Metoprolol Tartrate (Metoprolol Tartrate 25 Mg Tab) 25 mg PO DAILY [facility] Stop: 10/18/23 08:59 Last Admin: 09/26/23 08:56 Dose: 25 mg Miscellaneous ((Azelaic Acid 15 % Gel) ~ Order Awaiting Action) 1 each N/A QS [facility] Stop: 10/18/23 00:00 Last Admin: 09/26/23 13:10 Dose: Not Given Miscellaneous Information (Vancomycin Consult Active) 1 each N/A UD PRN PRN Reason: Consult Stop: 10/23/23 19:58 Oxybutynin Chloride (Oxybutynin Chloride Xl 5 Mg Tabcr) [facility] [place]: 10/18/23 08:59 Last Admin: 09/26/23 08:56 Dose: 15 mg Pantoprazole Sodium (Pantoprazole 40 Mg Tab) 40 mg PO QAM [facility] Stop: 10/18/23 08:59 Last Admin: 09/26/23 08:56 Dose: 40 mg Polyethylene Glycol (Polyethylene (Miralax) 17 Gm Pack) 17 gm PO DAILY PRN PRN Reason: Constipation Stop: 10/17/23 16:32 Prednisone (Prednisone 10 Mg Tablet) [facility] [place] 10/17/23 16:32 Last Admin: 09/26/23 08:56 Dose: 10 mg Teriflunomide (Pt's Own Med: Teriflunomide 14 Mg Tab) 14 mg PO PM [facility]; Protocol Stop: 10/25/23 20:59 Last Admin: 09/25/23 21:16 Dose: 14 mg Tizanidine HCl (Tizanidine Hcl 4 Mg Tablet) 4 mg PO QID [facility] Stop: 10/17/23 17:59 Last Admin: 09/26/23 12:28 Dose: 4 mg Vitamin D (Cholecalciferol 1,000 Units 25 Mcg Tab) 1,000 units PO QAM [facility] Stop: 10/18/23 08:59 Last Admin: 09/26/23 08:56 Dose: 1,000 units (2) Chronic ulcer of right foot Non-pressure ulcer stage: unspecified non-pressure ulcer stage Qualified Code(s): L97.519 - Non-pressure chronic ulcer of other part of right foot with unspecified severity
--- NOTE | 2023-09-26 15:12 | Communication Note ---
Date of Service: September 26, 2023 Reviewed data and current data results. Patient is a 72yo female with a h/o poorly healing right ankle wound and subsequent osteomyelitis. She is S/P fib ular excision by ortho on . Cultures from that have grown Corynebacterium sp. Prior to this, she had MSSA in June and E faecalis in April. Based on these resuilts and her clinical course to date, ID currently recommends: 1. IV vancomycin to maintain a trough of 15-20 x 6 weeks beyond surgical excision. This would put her end date at 11/02/23. 2. While on vancomycin she should have once weekly CBC, BMP, and vancomycin trough 3. Patient should follow-up in the ID clinic in the next 4-6 weeks
[2023-09-26] MEDS: TERIFLUNOMIDE 14 MG PO SCH (20:34)
[2023-09-27] MEDS ORDERED: MICONAZOLE NITRATE POWDER 85 GM EXT PRN (08:05)
[2023-09-27 08:14] LABS: Hematocrit (blood only) 30.6 % (37.0-47.0); Hemoglobin 9.4 g/dl (12.0-16.0); Mean Corpuscular Hemoglobin 27.5 pg (25.0-34.0); Mean Corpuscular Hgb Conc 30.7 g/dL (32.0-36.0); Mean Corpuscular Volume 89.5 fL (80.0-100.0); Mean Platelet Volume 10.7 fL (9.4-12.4); Platelet Count 308 K/uL (130-400); RDW Coefficient of Variation 16.2 % (11.5-14.5); RDW Standard Deviation 52.9 fL (36.4-46.3); Red Blood Count 3.42 M/uL (4.20-5.40); White Blood Count 4.78 K/ul (4.8-10.8)
[2023-09-27 08:42] LABS: BUN Creatinine Ratio 23.5 (10-20); Creatinine Clr Calc Pharmacy 63.7 ml/min; Est GFR (African American) 102.7 ml/min; Est GFR (Non-African American) 88.6 ml/min; Magnesium 1.9 mg/dl (1.7-2.4); Phosphorus 3.4 mg/dl (2.5-4.9); Potassium 4.3 mmol/L (3.5-5.1)
[2023-09-27] MEDS: MAGNESIUM OXIDE 400 MG TAB PO SCH ×2 (09:09→21:49)
[2023-09-27] MEDS: APIXABAN 5 MG TABLET PO SCH (09:10)
[2023-09-27] MEDS: METOPROLOL TARTRATE 25 MG TAB PO SCH (09:10)
[2023-09-27] MEDS: OXYBUTYNIN CHLORIDE XL 5 MG TABCR PO SCH (09:10)
[2023-09-27] MEDS: tiZANidine HCL 4 MG TABLET PO SCH ×4 (09:10→21:49)
[2023-09-27] MEDS: CHOLECALCIFEROL 1,000 UNITS 25 MCG TAB PO SCH (09:10)
[2023-09-27] MEDS: ATORVASTATIN 20 MG TAB PO SCH (09:10)
[2023-09-27] MEDS: PANTOprazole 40 MG TAB PO SCH (09:11)
[2023-09-27] MEDS: predniSONE 10 MG TABLET PO SCH (09:11)
[2023-09-27] MEDS: ESCITALOPRAM OXALATE 20 MG TAB PO SCH (09:11)
[2023-09-27] MEDS: VANCOMYCIN HCL 750 MG in SODIUM CHLORIDE 0.9% 250 ML IV SCH ×2 (10:29→22:35)
--- NOTE | 2023-09-27 16:54 | Hospitalist Progress Note ---
Date of Service September 27, 2023 Assessment & Plan (1) Acute deep vein thrombosis of left lower extremity: Plan: History of prior DVT and PE s/p IVC filter, was out of apixaban at home for about 2 weeks -- patient states she kept forgetting to pick it up at the [facility] IVC filter is still in place from 6 years ago. No clinical evidence of PE at this time. 09/23 - Discoloration of LLE noted with dusky appearance and edema with tight TEDs in place. Coloring improved with removal of TEDs and elevation of extremity. Warm to touch, dopplerable DP and PT pulses. Swelling and color continues to improve Transitioned from heparin to Eliquis on 09/26. Due to venous access issues, patient will require port placement, tentatively scheduled for 09/29. Will hold Eliquis and resume heparin. Discussed with pharmacy, will need to restart Eliquis loading dose course from the beginning. (2) Chronic ulcer of right foot: (3) Chronic refractory osteomyelitis of ankle: Plan: Recently she was ordered a right ankle MRI by her ID specialist --this was obtained on 09/18 while inpatient Right ankle MRI: Redemonstration of osteomyelitis in the distal fibula, similar in extent to prior exam. No new foci of disease are seen. Soft tissue edema and lateral ulcer without drainable fluid collection. 09/21-s/p partial excision right fibula by Dr. Velasco Operative cultures growing Corynebacterium Was on daily Augmentin prior to admission Now on IV Vanco (day 5) ID final recs: 1. IV vancomycin to maintain a trough of 15-20 x 6 weeks beyond surgical excision. This would put her end date at 11/02/23. 2. While on vancomycin she should have once weekly CBC, BMP, and vancomycin trough 3. Patient should follow-up in the ID clinic in the next 4-6 weeks PICC line ordered today, unfortunately patient does not have any vessels that are adequately sized for PICC or midline placement. Unable to use USG PIV with vancomycin. General surgery consulted for port placement, Eliquis/heparin plan as above (4) Chronic anemia: Plan: Chronic, stable Hgb 9.4, at baseline (5) Paroxysmal atrial fibrillation: Plan: Heparin/Eliquis as above Continue metoprolol for rate control (6) Hypertension: Plan: Chronic, stable Continue metoprolol (7) CAD (coronary artery disease): Plan: Chronic, stable, no reports of chest pain Continue statin and beta-jenaro (8) Multiple sclerosis: (9) Neurogenic bladder: (10) Presence of intrathecal pump: Plan: Chronic She is very sedentary per her report. Chronic ongoing baclofen pump and on scheduled tizanidine. Continue Aubagio per home regimen Neurogenic bladder. She typically self-catheterizes during the day then uses a salcedo catheter at night. Using PureWick currently. Cont Ditropan per home regimen. DVT PROPHYLAXIS Heparin/Eliquis as above Dispo -possible DC to [facility] once port placed Patient seen in collaboration with Dr. Johnson. Admission and Anticipated Discharge Date Admission Date: September 17, 2023 Supervising Physician Co-Signing Physician Notes Pt seen and examined by me, care coordinated w/ Mary Ann BROWN, pls refer to her note above for further detail. Pt underwent partial fibula excision w/ Dr. Velasco. She is feeling well overall. No fever, chills, chest pain, shortness of breath. Continues to have some LLE edema but overall much improved. Foot is warm, pt has no pain, able to move toes w/o difficulty, no sensory loss. pulses obtained by doppler at the bedside. Discussed cultx from OR w/ ID - Dr. Morales- pt will need 6 weeks of IV vancomycin. Ordered PICC line however not able to place the line by IV team, will need port placement - surgery consulted. MD Alex Subjective Follow-up for LLE DVT, chronic right ankle osteomyelitis. Patient seen and examined. Left leg swelling continues to improve. Denies chest pain or shortness of breath. No abdominal pain or nausea. Patient agreeable to rehab for IV antibiotic administration. Review of Systems Review of Systems: All systems reviewed & are unremarkable except as noted in Subjective Physical Exam Constitutional: WD/WN, vitals as above no acute distress Respiratory: normal respiratory effort, lungs clear to auscultation Cardiovascular: Rate/Rhythm: regular rate and regular rhythm Heart Sounds: + murmur (Grade 2/6, systolic) Vessels: normal peripheral pulses Extremities: + edema (+2 edema LLE) Gastrointestinal (Abdomen): Percussion/Palpation: abdomen soft; abdomen nontender Musculoskeletal: LLE with purplish discoloration -improved from yesterday, warm to touch Skin: no rashes, warm and dry Neurologic: no focal motor deficits Psychiatric: A+Ox3, euthymic affect Results & Data Results & Data Vital Signs (Past 12 Hours) Vital Signs Temp Pulse Resp BP Pulse Ox O2 Del Method 09/27/23 11:53 36 C L 78 14 148/88 H 94 Room Air 09/27/23 07:44 36.6 C 77 16 175/101 H 93 Room Air Laboratory Results Short CBC 09/27/23 Range/Units 07:35 WBC 4.78 L (4.8-10.8) K/ul Hgb 9.4 L (12.0-16.0) g/dl Hct 30.6 L (37.0-47.0) % Plt Count 308 (130-400) K/uL BMP 09/27/23 07:35 Sodium 141 Potassium 4.3 Chloride 107 Carbon Dioxide 29 BUN 16 Creatinine 0.68 Glucose 85 Calcium 9.0 Medications Administered Current Inpatient Medications Acetaminophen (Acetaminophen 325 Mg Tab) 650 mg PO Q4H PRN PRN Reason: Pain or Fever Stop: 10/17/23 16:32 Last Admin: 09/23/23 08:55 Dose: 650 mg Atorvastatin Calcium (Atorvastatin 20 Mg Tab) 20 mg PO QAM [facility] Stop: 10/18/23 08:59 Last Admin: 09/27/23 09:10 Dose: 20 mg Baclofen (Baclofen Pain Pump) 0 pump IT UD [facility] Stop: 10/17/23 16:32 Doxycycline Hyclate (Doxycycline Hyclate 50 Mg Cap) 50 mg PO Q2D@0900 [facility] Stop: 10/18/23 08:59 Last Admin: 09/26/23 08:57 Dose: 50 mg Escitalopram Oxalate (Escitalopram Oxalate 20 Mg Tab) 20 mg PO QAM [facility] Stop: 10/18/23 08:59 Last Admin: 09/27/23 09:11 Dose: 20 mg Vancomycin HCl 750 mg/ Sodium (Chloride) 265 mls @ 200 mls/hr IV Q12H [facility] Stop: 11/05/23 09:59 Last Infusion: 09/27/23 11:52 Dose: Infused Heparin Sodium/Dextrose (Heparin Sodium/Dextrose) 25,000 units in 500 mls @ 20 mls/hr IV .Q24H [facility]; Protocol Stop: 10/27/23 20:59 Magnesium Oxide (Magnesium Oxide 400 Mg Tab) 400 mg PO BID [facility] Stop: 10/23/23 20:59 Last Admin: 09/27/23 09:09 Dose: 400 mg Melatonin (Melatonin 3 Mg Tab) 3 mg PO HS PRN PRN Reason: Insomnia Stop: 10/17/23 16:32 Last Admin: 09/22/23 22:14 Dose: 3 mg Metoprolol Tartrate (Metoprolol Tartrate 25 Mg Tab) 25 mg PO DAILY [facility] Stop: 10/18/23 08:59 Last Admin: 09/27/23 09:10 Dose: 25 mg Miconazole Nitrate (Miconazole Nitrate Powder 85 Gm) 1 appln EXT BID PRN PRN Reason: Affected Skin Folds Stop: 10/27/23 08:04 Miscellaneous Information (Vancomycin Consult Active) 1 each N/A UD PRN PRN Reason: Consult Stop: 10/23/23 19:58 Oxybutynin Chloride (Oxybutynin Chloride Xl 5 Mg Tabcr) 15 mg PO QAM [facility] Stop: 10/18/23 08:59 Last Admin: 09/27/23 09:10 Dose: 15 mg Pantoprazole Sodium (Pantoprazole 40 Mg Tab) 40 mg PO QAM [facility] Stop: 10/18/23 08:59 Last Admin: 09/27/23 09:11 Dose: 40 mg Polyethylene Glycol (Polyethylene (Miralax) 17 Gm Pack) 17 gm PO DAILY PRN PRN Reason: Constipation Stop: 10/17/23 16:32 Prednisone (Prednisone 10 Mg Tablet) 10 mg PO QAM [facility] Stop: 10/17/23 16:32 Last Admin: 09/27/23 09:11 Dose: 10 mg Teriflunomide (Pt's Own Med: Teriflunomide 14 Mg Tab) 14 mg PO PM [facility]; Protocol Stop: 10/25/23 20:59 Last Admin: 09/26/23 20:34 Dose: 14 mg Tizanidine HCl (Tizanidine Hcl 4 Mg Tablet) 4 mg PO QID [facility] Stop: 10/17/23 17:59 Last Admin: 09/27/23 17:12 Dose: 4 mg Vitamin D (Cholecalciferol 1,000 Units 25 Mcg Tab) 1,000 units PO QAM [facility] Stop: 10/18/23 08:59 Last Admin: 09/27/23 09:10 Dose: 1,000 units (2) Chronic ulcer of right foot Non-pressure ulcer stage: unspecified non-pressure ulcer stage Qualified Code(s): L97.519 - Non-pressure chronic ulcer of other part of right foot with unspecified severity
--- NOTE | 2023-09-27 17:04 | Surgery Consultation ---
Date of Consultation September 27, 2023 Assessment & Plan (1) Osteomyelitis of ankle: Patient is a pleasant 72yo female with PMH of Right breast CA, Afib, HTN, MS, GERD, CAD, PE,DVT, that presented to the [facility] 09/17/23 with C/o left lower leg swelling and pain. Was found to have a DVT and was admitted to the hospital. Patient also reports that she has had a chronic wound to the right lower leg and was taken to the OR on 09/21/23 for a partial excision of right fibula. General surgery was consulted because will need prison antibiotic therapy for osteomyelitis of right distal fibula. Patient has had a Mediport 22 years ago for breast cancer , does not remember which side it was placed. She had a Right reverse TSA last year. Will tentatively schedule for the OR this for Mediport placement with Dr. 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 Was found to have a DVT and was admitted to the hospital. Patient also reports that she has had a chronic wound to the right lower leg and was taken to the OR on 09/21/23 for a partial excision of right fibula. General surgery was consulted because will need prison antibiotic therapy for osteomyelitis of right distal fibula. Patient has had a Mediport 22 years ago for breast cancer, and radiation to the chest , does not remember which side mediport was placed. She had a Right reverse TSA last year. Allergies Allergy/AdvReac Type Severity Reaction Status Date / Time No Known Allergies Allergy Verified 09/14/23 13:17 Home Medications Medication Instructions Recorded Confirmed Type cholecalciferol (vitamin D3) 25 1,000 units PO QAM 09/18/18 09/17/23 History mcg (1,000 unit) capsule escitalopram oxalate 20 mg tablet 20 mg PO QAM 09/18/18 09/17/23 History (Lexapro) oxybutynin chloride 15 mg 15 mg PO QAM 09/18/18 09/17/23 History tablet,extended release 24 hr prednisone 10 mg tablet 10 mg PO QAM 09/18/18 09/17/23 History omeprazole 40 mg capsule,delayed 40 mg PO QAM 07/06/21 09/17/23 History release apixaban 5 mg tablet (Eliquis) 5 mg PO BID #60 tabs 07/09/21 09/17/23 Rx teriflunomide 14 mg tablet 14 mg PO QPM 05/13/22 09/17/23 History (Aubagio) tizanidine 4 mg tablet (Zanaflex) 4 mg PO QID 05/13/22 09/17/23 History doxycycline hyclate 50 mg capsule 50 mg PO Q OTHER DAY Rosacea 08/10/22 09/17/23 History azelaic acid 15 % topical gel 1 applic topical DAILY 10/21/22 09/17/23 History acetaminophen 500 mg tablet 500 mg PO Q6H PRN Pain 03/05/23 09/17/23 History melatonin 3 mg tablet 3 mg PO HS PRN Insomnia 03/05/23 09/17/23 History multivitamin 1 tab PO DAILY 03/05/23 09/17/23 History metoprolol tartrate 25 mg tablet 25 mg PO DAILY 05/08/23 09/17/23 History atorvastatin 20 mg tablet (Lipitor) 20 mg PO QAM 08/04/23 09/17/23 History Baclofen Pump 0 mg SC DIRECTED 08/05/23 09/17/23 History amoxicillin 875 mg-potassium 1 tab PO DAILY 08/11/23 09/17/23 History clavulanate 125 mg tablet Patient History Medical History Anemia CAD (coronary artery disease) Non-obstructive per 06/2021 cardiac cath Fever GERD (gastroesophageal reflux disease) controlled, stable per pt History of blood transfusion History of DVT (deep vein thrombosis) ~6 yrs ago History of GI bleed Upper GIB (2019) felt 2/2 NSAID use History of non-ST elevation myocardial infarction (NSTEMI) 06/2021 (had heart cath, no stents) History of pulmonary embolism ~ 6 yrs ago, IVC filter still in place History of recent hospitalization 09/2022 [facility] - sepsis History of supraventricular tachycardia Hx of gastric ulcer 02/2021 HX: breast cancer Left breast cancer with surgery and chemo/radiation-left arm restriction Hypertension controlled, stable per pt Limb alert care status left arm Multiple sclerosis Follows with Dr. Walker/[facility] Stable Neurogenic bladder SELF CATH 2-3 X'S PER DAY *RECENT HOSPITALIZATION FOR UTI Osteoarthritis of right shoulder Osteoporosis Raynaud disease Surgical History H/O left mastectomy with lymph node removal>LEFT ARM RESTRICTION History of appendectomy History of cardiac cath Cardiac cath (07/06/21; [facility]) > Right dominant coronary system. No evidence of aortic stenosis. Normal left ventricular filling pressures. Nonobstructive disease involving the ostial LAD. No evidence of acute coronary syndrome. Approximately 50% ostial stenosis of the LAD. There was some very mild disease at the ostium of the left circumflex. Recommendations: Medical management. History of colonoscopy History of esophagogastroduodenoscopy (EGD) History of open reduction and internal fixation (ORIF) procedure "left hip" History of tooth extraction Presence of intrathecal pump baclofen pump in place--status post revision/replacement 08/10/2022 S/P IVC filter S/P partial hysterectomy S/p reverse total shoulder arthroplasty right: 05/25/22 LMA#4. No postop issues per anesthesia progress note. Family History Mother Heart disorder Other No family history of adverse response to anesthesia Social History Smoking Status: Former smoker Tobacco Type: Cigarettes packs per day: 1; Cigarettes Per Day: stopped in 1977; Second Hand Exposure: No; Do You Dip or Chew Tobacco: No; Hx Alcohol Use: No Hx Substance Use: No Preferred Language: Hungarian Communication Ability: Effective Visual Impairment: Limited Hearing Ability: Use of Hearing Aid Spring Tacker Required: No Beliefs That Will Affect Care: None marital status: / Current Living Situation: Alone Current Living Situation Comment: family helps pt and [facility] current occupational status: retired How many Children do You have: 3 Feels Safe at Home: Yes Safety Concerns: Feels Safe At This Time Childhood Exposure to Second-Hand Smoke: Yes Diet: regular caffeine: Yes Assistive Devices: Walker, Wheelchair and Other Review of Systems Respiratory: no dyspnea Cardiovascular: no chest pain Physical Exam Constitutional: cooperative and comfortable; no acute distress Respiratory: normal respiratory effort and able to speak in complete sentences; no respiratory distress Cardiovascular: Rate/Rhythm: regular rate Skin: Left scar possible placement of previous mediport, right shoulder scar Results & Data Vital Signs (Past 12 Hours) Vital Signs Temp Pulse Resp BP Pulse Ox O2 Del Method 09/27/23 11:53 96.8 F L 78 14 148/88 H 94 Room Air 09/27/23 07:44 97.9 F 77 16 175/101 H 93 Room Air PG Care Time/CCT Total # of Minutes Spent Total Time Spent with Patient: Total time spent is greater than 50% in coordination of care (as documented) at patient's floor/unit and/or counseling patient: Coding Level of Care Code 64878 INT INP/OBS CARE 2/55MIN Diagnoses Osteomyelitis of ankle M86.9
[2023-09-27] MEDS ORDERED: Heparin IV Adult Wt-Based Standard *NO* INITIAL Bolus Protocol IV ONE (21:00)
[2023-09-27] MEDS: HEPARIN SODIUM/DEXTROSE 25,000 UNITS/500 ML BAG IV SCH (21:33)
[2023-09-27] MEDS: TERIFLUNOMIDE 14 MG PO SCH (21:48)
[2023-09-28 04:42] LABS: Hematocrit (blood only) 27.4 % (37.0-47.0); Hemoglobin 8.9 g/dl (12.0-16.0); Mean Corpuscular Hemoglobin 28.2 pg (25.0-34.0); Mean Corpuscular Hgb Conc 32.5 g/dL (32.0-36.0); Mean Corpuscular Volume 86.7 fL (80.0-100.0); Mean Platelet Volume 10.4 fL (9.4-12.4); Platelet Count 302 K/uL (130-400); RDW Coefficient of Variation 16.3 % (11.5-14.5); RDW Standard Deviation 51.1 fL (36.4-46.3); Red Blood Count 3.16 M/uL (4.20-5.40); White Blood Count 5.54 K/ul (4.8-10.8)
[2023-09-28 04:58] LABS: BUN Creatinine Ratio 22.4 (10-20); Calcium 8.8 mg/dl (8.6-10.3); Creatinine Clr Calc Pharmacy 64.6 ml/min; Est GFR (African American) 103.2 ml/min; Est GFR (Non-African American) 89.1 ml/min; Phosphorus 3.4 mg/dl (2.5-4.9); Potassium 4.4 mmol/L (3.5-5.1)
[2023-09-28 05:07] LABS: Partial Thromboplastin Ratio 1.2; Partial Thromboplastin Time 34.7 Seconds (21.0-31.0)
[2023-09-28] MEDS ORDERED: HEPARIN SOD (PORCINE) 1000 UNIT/ML IV ONE (05:20)
[2023-09-28] MEDS: HEPARIN SODIUM/DEXTROSE 25,000 UNITS/500 ML BAG IV SCH ×2 (05:31→22:31)
[2023-09-28] MEDS: VANCOMYCIN HCL 1,000 MG in SODIUM CHLORIDE 0.9% 250 ML IV SCH ×2 (07:43→20:34)
[2023-09-28] MEDS: predniSONE 10 MG TABLET PO SCH (08:46)
[2023-09-28] MEDS: DOXYCYCLINE HYCLATE 50 MG CAP PO SCH (08:46)
[2023-09-28] MEDS: MAGNESIUM OXIDE 400 MG TAB PO SCH ×2 (08:46→20:36)
[2023-09-28] MEDS: METOPROLOL TARTRATE 25 MG TAB PO SCH (08:46)
[2023-09-28] MEDS: ESCITALOPRAM OXALATE 20 MG TAB PO SCH (08:46)
[2023-09-28] MEDS: PANTOprazole 40 MG TAB PO SCH (08:46)
[2023-09-28] MEDS: CHOLECALCIFEROL 1,000 UNITS 25 MCG TAB PO SCH (08:47)
[2023-09-28] MEDS: OXYBUTYNIN CHLORIDE XL 5 MG TABCR PO SCH (08:47)
[2023-09-28] MEDS: tiZANidine HCL 4 MG TABLET PO SCH ×4 (08:47→20:38)
[2023-09-28] MEDS: ATORVASTATIN 20 MG TAB PO SCH (08:47)
--- NOTE | 2023-09-28 09:44 | Orthopedic Progress Note ---
Date of Service September 28, 2023 Assessment & Plan (1) Osteomyelitis of ankle: Plan: Patient seen and evaluated at bedside. Patient status post day#7 partial excision of right fibula (DOS: 09/21/23) Right fibula showed corynebacterium growth. No sensitives noted. Susceptibility is ideal for treatment. Pathology reports chronic osteomyelitis of excised bone. Does not make note of clear margins. Source control can not be determined. Patient will require 8 weeks of IV abx therapy. Dry, sterile, dressing changed applied. Incision site appears co-apted but continues to drain. Will continue to monitor while Patient remains in house. (2) Leg wound, right: Admission and Anticipated Discharge Date Admission Date: September 17, 2023 Subjective Follow-up for LLE DVT, chronic right ankle osteomyelitis. Patient seen and examined. Left leg swelling continues to improve. Denies chest pain or shortness of breath. No abdominal pain or nausea. Patient agreeable to rehab for IV antibiotic administration. Physical Exam Constitutional: cooperative and comfortable Eyes: normal visual davidson by confrontation Neck: normal visual inspection Respiratory: normal respiratory effort Cardiovascular: Vessels: posterior tibial pulses present and dorsalis pedis pulses present Skin: + ulcer (right lateral ankle) Psychiatric: Orientation: alert and oriented x 3 Results & Data Vital Signs (Past 12 Hours) Vital Signs Temp Pulse Resp BP Pulse Ox O2 Del Method 09/28/23 08:05 36.9 C 89 16 148/97 H 99 Room Air Diagnostic Findings Name:NADEEN ANNE Age/Sex: 72/F Location: MR#: [id number] : 1950 /Bed:N3-2 Subm. Phys.:Andrea Velasco, FRANCIS, MS Case #:[id number] Collected: 09/21/23 Received: 09/22/23 Copies To Solange Wall, Andrea Rivera, DPM, MS FINAL DIAGNOSIS Bone, right fibula, biopsy: - Chronic osteomyelitis with notable reactive changes at 1254. Clinical History Osteomyelitis of the distal fibula. Procedure performed: Partial excision of right fibula. Gross Description RIGHT FIBULA The specimen is received in a container labeled right fibula with the patient name. The specimen consists of a roughly oval fragment of bone with scant attached soft tissue. The fragment measures 3.2 x 2 x 0.8 cm. One aspect is markedly irregular in appearance. Sectioning reveals a dull luna to grayish, mottled cut surface, without marked softening. The small amount of soft tissue is dull luna to grayish. Supervisor Furnace Room sections are submitted in two cassettes with A1 representing bone for decalcification and A2, soft tissue. Current Procedural Terminology [id number], [id number] [address] [place] [address] / Director: Shane De La Fuente M.D. Clinical Laboratory Report Name: NADEEN ANNE Acct: [id number] Status: ADM IN : 1950 [facility] [place] Date: 09/17/23 Age: 72 Sex: F Dis Date: Loc: Medical/Surgical/Ortho [address] [place] [address] Rm/Bed: N378-2 Spec: [id number] Collected: 09/21/23-UNK Received: 09/21/[address]: Andrea Velasco, DPM, MS Copy To: Solange Wall DO Source: Ankle,Right OV Order: Ordered: Aer/Silvina Cult/Sm Comments: Comment Deep Culture Procedure Result Verified Site Gram Stain Final 09/22/23 Gram Stain Result No Epithelial Cells Few WBCs Seen No Organisms Seen Aero/Silvina Cult Final 09/26/23113 Organism 1 Corynebacterium species Quantity Few Sens No Sensitivities to Follow No Anaerobes Isolated No Anaerobes Isolated +MixWound Plus Low Counts of Probable Skin Violeta Name: NADEEN ANNE : 1950 PAGE 1 Printed: 09/28/23 0944 END OF REPORT
--- NOTE | 2023-09-28 10:03 | Pharmacy Report ---
Pharmacy PK ABX Note - Date of Service September 28, 2023 - Assessment and Plan Assessment 09/28: Reviewed random vancomycin level which predicted and AUC/STEPHEN below goal. Renal function stable. Dose increased today. Predicted kinetics based on today's serum creatinine and vancomycin level: AUC/STEPHEN 575mg/L.hr, trough 17.8 with 99% probability that AUC >400, and and a 14% risk of nephrotoxicity (calculations via [email or web address]). ID recommending 6 weeks of therapy. Ankle and tissue (09/21) culture growing cornebacterium. ID consulted, recommended 6 weeks of IV vancomycin. 09/23 72 year old F receiving IV Vancomycin for treatment of chronic refractory osteomyelitis of ankle. Day # 1 of antimicrobial therapy. Plan Vancomycin * Maintenance dose: increased to 1000 mg IV every 12 hours * Regimen is predicted to achieve target AUC/STEPHEN of 400-600 mg/L.hr * Trough level ordered for: 09/29/23 @ 0730 before the third dose. * Daily serum creatinine ordered. Pharmacy will continue to follow and will adjust dose/frequency as necessary. Thank you. Pharmacy has transitioned to AUC monitoring for vancomycin. AUC/STEPHEN is the preferred PK/PD target and is associated with decreased risk of nephrotoxicity compared to traditional trough targets.
--- NOTE | 2023-09-28 12:25 | Hospitalist Progress Note ---
Date of Service September 28, 2023 Assessment & Plan (1) Acute deep vein thrombosis of left lower extremity: Plan: History of prior DVT and PE s/p IVC filter, was out of apixaban at home for about 2 weeks -- patient states she kept forgetting to pick it up at the [facility] IVC filter is still in place from 6 years ago. No clinical evidence of PE at this time. 09/23 - Discoloration of LLE noted with dusky appearance and edema with tight TEDs in place. Coloring improved with removal of TEDs and elevation of extremity. Warm to touch, dopplerable DP and PT pulses. Swelling and color continues to improve Transitioned from heparin to Eliquis on 09/26. Due to venous access issues, patient will require port placement, tentatively scheduled for 09/29. Will hold Eliquis and resume heparin. Hold heparin tonight at midnight in anticipation of port placement tomorrow. Discussed with pharmacy, will need to restart Eliquis loading dose course from the beginning. (2) Chronic ulcer of right foot: (3) Chronic refractory osteomyelitis of ankle: Plan: Recently she was ordered a right ankle MRI by her ID specialist --this was obtained on 09/18 while inpatient Right ankle MRI: Redemonstration of osteomyelitis in the distal fibula, similar in extent to prior exam. No new foci of disease are seen. Soft tissue edema and lateral ulcer without drainable fluid collection. 09/21-s/p partial excision right fibula by Dr. Velasco Operative cultures growing Corynebacterium Was on daily Augmentin prior to admission Now on IV Vanco (day 5) ID final recs: 1. IV vancomycin to maintain a trough of 15-20 x 6 weeks beyond surgical excision. This would put her end date at 11/02/23. 2. While on vancomycin she should have once weekly CBC, BMP, and vancomycin trough 3. Patient should follow-up in the ID clinic in the next 4-6 weeks Unfortunately patient does not have any vessels that are adequately sized for PICC or midline placement. Unable to use USG PIV with vancomycin. General surgery consulted for port placement, planned for 09/29. Eliquis/heparin plan as above. (4) Chronic anemia: Plan: Chronic, stable Hgb 8.9, at baseline (5) Paroxysmal atrial fibrillation: Plan: Heparin/Eliquis as above Continue metoprolol for rate control (6) Hypertension: Plan: Chronic, stable Continue metoprolol (7) CAD (coronary artery disease): Plan: Chronic, stable, no reports of chest pain Continue statin and beta-jenaro (8) Multiple sclerosis: (9) Neurogenic bladder: (10) Presence of intrathecal pump: Plan: Chronic She is very sedentary per her report. Chronic ongoing baclofen pump and on scheduled tizanidine. Continue Aubagio per home regimen Neurogenic bladder. She typically self-catheterizes during the day then uses a salcedo catheter at night. Using PureWick currently. Cont Ditropan per home regimen. DVT PROPHYLAXIS Heparin/Eliquis as above Dispo -possible DC to [facility] once port placed Patient seen in collaboration with Dr. Armenta. Admission and Anticipated Discharge Date Admission Date: September 17, 2023 Supervising Physician Co-Signing Physician Notes Patient is seen and examined at bedside. States feeling better today. Denies any significant lower extremity pain. Plan for port placement tomorrow. Continue IV heparin for now. On exam patient is moderately built and nourished, no apparent distress, normocephalic atraumatic, EOMI, normal breath sounds, clear to auscultation, S1-S2,+ murmur, no lower extremity mildly edematous, ecchymotic, warm, right ankle in surgical dressing, alert, awake, oriented, grossly no focal deficits. Patient is admitted for management of acute left lower extremity DVT. Continue IV heparin for now, transition to Eliquis as able. Also being treated for chronic refractory right ankle osteomyelitis/ulceration of right foot. s/p partial excision of right fibula by Dr. Velasco. Continue IV vancomycin as per ID. Plan to discharge to rehab facility as able. I personally reviewed the record. Patient is interviewed and examined at bedside. Patient's care is coordinated with Dana tSeele TEMPLATE STORAGE CLERK. Please refer to the documentation above for details of patient's presentation and for discussion of other issues. Subjective Follow-up for LLE DVT, chronic right ankle osteomyelitis. Patient seen and examined. Reports she is feeling well. Offers no complaints. LLE swelling and discoloring continues to improve. Patient denies chest pain and shortness of breath. Remains afebrile. Review of Systems Review of Systems: All systems reviewed & are unremarkable except as noted in Subjective Physical Exam Constitutional: WD/WN, vitals as above no acute distress Respiratory: normal respiratory effort, lungs clear to auscultation Cardiovascular: Rate/Rhythm: regular rate and regular rhythm Heart Sounds: + murmur (Grade 2/6, systolic) Vessels: normal peripheral pulses Ex tremities: + edema (+2 edema LLE) Gastrointestinal (Abdomen): Percussion/Palpation: abdomen soft; abdomen nontender Musculoskeletal: Purplish discoloration and swelling noted to LLE, continues to improve, LLE warm to touch Skin: no rashes, warm and dry Neurologic: no focal motor deficits Psychiatric: A+Ox3, euthymic affect Results & Data Results & Data Vital Signs (Past 12 Hours) Vital Signs Temp Pulse Resp BP Pulse Ox O2 Del Method 09/28/23 08:05 36.9 C 89 16 148/97 H 99 Room Air Laboratory Results Short CBC 09/28/23 Range/Units 04:02 WBC 5.54 (4.8-10.8) K/ul Hgb 8.9 L (12.0-16.0) g/dl Hct 27.4 L (37.0-47.0) % Plt Count 302 (130-400) K/uL BMP 09/28/23 04:02 Sodium 137 Potassium 4.4 Chloride 106 Carbon Dioxide 27 BUN 15 Creatinine 0.67 Glucose 98 Calcium 8.8 (2) Chronic ulcer of right foot Non-pressure ulcer stage: unspecified non-pressure ulcer stage Qualified Code(s): L97.519 - Non-pressure chronic ulcer of other part of right foot with unspecified severity
[2023-09-28 14:08] LABS: Partial Thromboplastin Ratio 1.5
[2023-09-28 14:12] LABS: Partial Thromboplastin Time 42.7 Seconds (21.0-31.0)
[2023-09-28] MEDS: TERIFLUNOMIDE 14 MG PO SCH (20:37)
[2023-09-29 06:09] LABS: Basophils # (auto) 0.05 K/uL (0.00-0.20); Eosinophils # (auto) 0.07 K/uL (0.00-0.50); Eosinophils % (auto) 1.4 %; Hematocrit (blood only) 26.6 % (37.0-47.0); Hemoglobin 8.5 g/dl (12.0-16.0); Immature Granulocytes # (auto) 0.04 K/uL (0.01-0.20); Immature Granulocytes % (auto) 0.8 %; Lymphocytes # (auto) 1.27 K/uL (1.20-3.40); Mean Corpuscular Hemoglobin 27.8 pg (25.0-34.0); Mean Corpuscular Volume 86.9 fL (80.0-100.0); Mean Platelet Volume 10.6 fL (9.4-12.4); Monocytes # (auto) 0.61 K/uL (0.11-0.59); Neutrophils # (auto) 3.04 K/uL (1.40-6.50); Neutrophils % (auto) 59.8 %; Platelet Count 277 K/uL (130-400); RDW Coefficient of Variation 16.3 % (11.5-14.5); RDW Standard Deviation 51.1 fL (36.4-46.3); Red Blood Count 3.06 M/uL (4.20-5.40); White Blood Count 5.08 K/ul (4.8-10.8)
[2023-09-29 06:38] LABS: BUN Creatinine Ratio 23.7 (10-20); Calcium 8.7 mg/dl (8.6-10.3); Est GFR (African American) 92.1 ml/min; Est GFR (Non-African American) 79.5 ml/min; Potassium 4.3 mmol/L (3.5-5.1)
[2023-09-29 07:04] LABS: Partial Thromboplastin Ratio 0.8; Partial Thromboplastin Time 23.1 Seconds (21.0-31.0); Prothrombin Time 10.6 Seconds (9.0-12.0)
[2023-09-29] MEDS: METOPROLOL TARTRATE 25 MG TAB PO SCH (07:50)
[2023-09-29] MEDS: VANCOMYCIN HCL 1,000 MG in SODIUM CHLORIDE 0.9% 250 ML IV SCH (07:50)
[2023-09-29] MEDS: OXYBUTYNIN CHLORIDE XL 5 MG TABCR PO SCH (07:50)
[2023-09-29] MEDS: MAGNESIUM OXIDE 400 MG TAB PO SCH ×2 (07:51→21:10)
[2023-09-29] MEDS: PANTOprazole 40 MG TAB PO SCH (07:51)
[2023-09-29] MEDS: ATORVASTATIN 20 MG TAB PO SCH (07:51)
[2023-09-29] MEDS: predniSONE 10 MG TABLET PO SCH (07:51)
[2023-09-29] MEDS: tiZANidine HCL 4 MG TABLET PO SCH ×4 (07:51→20:44)
[2023-09-29] MEDS: ESCITALOPRAM OXALATE 20 MG TAB PO SCH (07:51)
[2023-09-29] MEDS: CHOLECALCIFEROL 1,000 UNITS 25 MCG TAB PO SCH (07:51)
--- NOTE | 2023-09-29 10:56 | Pharmacy Report ---
Pharmacy PK ABX Note - Date of Service September 29, 2023 - Assessment and Plan Assessment 09/29: Today is day 7 of Vancomycin therapy. Vancomycin dose was increased yesterday to 1000 mg IV Q12h. Trough level obtained this AM at 05:49 before dose at 8 AM was 21.2 mcg/ml which has increased significantly since yesterday. 09/28: Reviewed random vancomycin level which predicted and AUC/STEPHEN below goal. Renal function stable. Dose increased today. Predicted kinetics based on today's serum creatinine and vancomycin level: AUC/STEPHEN 575mg/L.hr, trough 17.8 with 99% probability that AUC >400, and and a 14% risk of nephrotoxicity (calculations vi a [employer]). ID recommending 6 weeks of therapy. Ankle and tissue (09/21) culture growing cornebacterium. ID consulted, recommended 6 weeks of IV vancomycin. 09/23: 72 year old F receiving IV Vancomycin for treatment of chronic refractory osteomyelitis of ankle. Day # 1 of antimicrobial therapy. Plan Vancomycin * Current regimen: 1000 mg IV every 12 hours * Trough level obtained today resulted as 21.2 mcg/mL. This is predicted to achieve target AUC/STEPHEN of above 600 mg/L.hr * Predicted AUC at steady state: 718 mg/L.hr * Decreased Vancomycin dosing back to 750 mg IV every 12 hours * AUC/STEPHEN at steady state is predicted to be between 400-600 mg/L.hr. * Will repeat level in the next 48-72 hours if therapy is continued and/or change in patient clinical status Pharmacy will continue to follow and will adjust dose/frequency as necessary. Thank you. Pharmacy has transitioned to AUC monitoring for vancomycin. AUC/STEPHEN is the pref erred PK/PD target and is associated with decreased risk of nephrotoxicity compared to traditional trough targets.
[2023-09-29] MEDS ORDERED: PROPOFOL IV EMULSION 10 MG/ML 20 ML VIAL IV ONE (12:18)
[2023-09-29] MEDS ORDERED: DEXAMETHASONE SOD INJ 4 MG/ML VIAL ONE (12:18)
[2023-09-29] MEDS ORDERED: ONDANSETRON INJ 2 MG/ML 2 ML VIAL ONE (12:18)
[2023-09-29] MEDS ORDERED: LIDOCAINE 2% 2 ML VIAL/AMP(20MG/ML) INFIL ONE ×2 (12:18→12:19)
[2023-09-29] MEDS ORDERED: MIDAZOLAM HCL 1 MG/ML 2ML VIAL ONE ×2 (12:19→13:22)
[2023-09-29] MEDS ORDERED: fentaNYL citrate PF 100 MCG/2 ML VIAL ONE (12:19)
--- NOTE | 2023-09-29 12:36 | Anesthesiology Consultation ---
Date of Service September 29, 2023 Assessment & Plan (1) Encounter for pre-operative examination: Chart Review Chart Review: Acceptable Risk for Surgery History Surgery Operation Date: 09/21/23 07:00 Proposed Procedures p Right Fibula Partial Excision Debridement - Andrea Velasco DPM, MS Operation Date: 09/29/23 09:45 Proposed Procedures p A-Port Insertion - Tristin Lazo, DO Height/Weight Height: 5 ft 3 in Weight: 62.1 kg Allergies Allergy/AdvReac Type Severity Reaction Status Date / Time No Known Allergies Allergy Verified 09/14/23 13:17 Medications Home Medications Medication Instructions Recorded Confirmed Last Taken cholecalciferol (vitamin D3) 25 1,000 units PO QAM 09/18/18 09/17/23 11/02/22 mcg (1,000 unit) capsule escitalopram oxalate 20 mg tablet 20 mg PO QAM 09/18/18 09/17/23 05/08/23 09:00 (Lexapro) oxybutynin chloride 15 mg 15 mg PO QAM 09/18/18 09/17/23 05/08/23 09:00 tablet,extended release 24 hr prednisone 10 mg tablet 10 mg PO QAM 09/18/18 09/17/23 05/08/23 09:00 omeprazole 40 mg capsule,delayed 40 mg PO QAM 07/06/21 09/17/23 05/08/23 09:00 release apixaban 5 mg tablet (Eliquis) 5 mg PO BID #60 tabs 07/09/21 09/17/23 08/04/23 22:00 teriflunomide 14 mg tablet 14 mg PO QPM 05/13/22 09/17/23 11/03/22 (Aubagio) tizanidine 4 mg tablet (Zanaflex) 4 mg PO QID 05/13/22 09/17/23 11/04/22 08:00 doxycycline hyclate 50 mg capsule 50 mg PO Q OTHER DAY Rosacea 08/10/22 09/17/23 05/07/23 azelaic acid 15 % topical gel 1 applic topical DAILY 10/21/22 09/17/23 10/20/22 acetaminophen 500 mg tablet 500 mg PO Q6H PRN Pain 03/05/23 09/17/23 Unknown melatonin 3 mg tablet 3 mg PO HS PRN Insomnia 03/05/23 09/17/23 Unknown multivitamin 1 tab PO DAILY 03/05/23 09/17/23 Unknown metoprolol tartrate 25 mg tablet 25 mg PO DAILY 05/08/23 09/17/23 05/08/23 09:00 atorvastatin 20 mg tablet (Lipitor) 20 mg PO QAM 08/04/23 09/17/23 Unknown Baclofen Pump 0 mg SC DIRECTED 08/05/23 09/17/23 Unknown amoxicillin 875 mg-potassium 1 tab PO DAILY 08/11/23 09/17/23 Unknown clavulanate 125 mg tablet Active Medications Generic Name Dose Route Start Last Admin Trade Name Freq PRN Reason Stop Dose Admin Acetaminophen 650 mg 09/17/23 16:33 09/23/23 08:55 Acetaminophen 325 Mg Tab PO 10/17/23 16:32 650 mg Q4H PRN Administration Pain or Fever Atorvastatin Calcium 20 mg 09/18/23 09:00 09/29/23 07:51 Atorvastatin 20 Mg Tab PO 10/18/23 08:59 20 mg QAM MICHELLE Administration Doxycycline Hyclate 50 mg 09/18/23 09:00 09/28/23 08:46 Doxycycline Hyclate 50 Mg Cap PO 10/18/23 08:59 50 mg Q2D@0900 MICHELLE Administration Escitalopram Oxalate 20 mg 09/18/23 09:00 09/29/23 07:51 Escitalopram Oxalate 20 Mg Tab PO 10/18/23 08:59 20 mg QAM MICHELLE Administration Magnesium Oxide 400 mg 09/23/23 21:00 09/29/23 07:51 Magnesium Oxide 400 Mg Tab PO 10/23/23 20:59 400 mg BID MICHELLE Administration Melatonin 3 mg 09/17/23 16:33 09/22/23 22:14 Melatonin 3 Mg Tab PO 10/17/23 16:32 3 mg HS PRN Administration Insomnia Metoprolol Tartrate 25 mg 09/18/23 09:00 09/29/23 07:50 Metoprolol Tartrate 25 Mg Tab PO 10/18/23 08:59 25 mg DAILY MICHELLE Administration Oxybutynin Chloride 15 mg 09/18/23 09:00 09/29/23 07:50 Oxybutynin Chloride Xl 5 Mg Tabcr PO 10/18/23 08:59 15 mg QAM MICHELLE Administration Pantoprazole Sodium 40 mg 09/18/23 09:00 09/29/23 07:51 Pantoprazole 40 Mg Tab PO 10/18/23 08:59 40 mg QAM MICHELLE Administration Prednisone 10 mg 09/17/23 16:33 09/29/23 07:51 Prednisone 10 Mg Tablet PO 10/17/23 16:32 10 mg QAM IMCHELLE Administration Teriflunomide 14 mg 09/25/23 21:00 09/28/23 20:37 Pt's Own Med: Teriflunomide 14 Mg Tab PO 10/25/23 20:59 14 mg PM MICHELLE Administration Protocol Tizanidine HCl 4 mg 09/17/23 18:00 09/29/23 07:51 Tizanidine Hcl 4 Mg Tablet PO 10/17/23 17:59 4 mg QID MICHELLE Administration Vitamin D 1,000 units 09/18/23 09:00 09/29/23 07:51 Cholecalciferol 1,000 Units 25 Mcg Tab PO 10/18/23 08:59 1,000 units QAM MICHELLE Administration NPO Date Last Intake of Fluids: 09/28/23 Time Last Intake of Fluids: 18:30 Date Last Intake of Solids: 09/28/23 Time Last Intake of Solids: 18:30 Past Medical History Medical History Fever History of recent hospitalization 09/2022 [facility] - sepsis History of blood transfusion Limb alert care status left arm HX: breast cancer Left breast cancer with surgery and chemo/radiation-left arm restriction Osteoarthritis of right shoulder History of GI bleed Upper GIB (2019) felt 2/2 NSAID use CAD (coronary artery disease) Non-obstructive per 06/2021 cardiac cath History of non-ST elevation myocardial infarction (NSTEMI) 06/2021 (had heart cath, no stents) History of supraventricular tachycardia History of pulmonary embolism ~ 6 yrs ago, IVC filter still in place History of DVT (deep vein thrombosis) ~6 yrs ago Hx of gastric ulcer 02/2021 Anemia GERD (gastroesophageal reflux disease) controlled, stable per pt Hypertension controlled, stable per pt Raynaud disease Neurogenic bladder SELF CATH 2-3 X'S PER DAY *RECENT HOSPITALIZATION FOR UTI Osteoporosis Multiple sclerosis Follows with Dr. Walker/[facility] Stable Past Family History Family History Mother Heart disorder Other No family history of adverse response to anesthesia Past Surgical History Surgical History S/p reverse total shoulder arthroplasty right: 05/25/22 LMA#4. No postop issues per anesthesia progress note. History of cardiac cath Cardiac cath (07/06/21; [facility]) > Right dominant coronary system. No evidence of aortic stenosis. Normal left ventricular filling pressures. Nonobstructive disease involving the ostial LAD. No evidence of acute coronary syndrome. Approximately 50% ostial stenosis of the LAD. There was some very mild disease at the ostium of the left circumflex. Recommendations: Medical management. History of esophagogastroduodenoscopy (EGD) History of colonoscopy History of tooth extraction History of appendectomy S/P partial hysterectomy History of open reduction and internal fixation (ORIF) procedure "left hip" H/O left mastectomy with lymph node removal>LEFT ARM RESTRICTION S/P IVC filter Presence of intrathecal pump baclofen pump in place--status post revision/replacement 08/10/2022 Social History Smoking Status: Former smoker tobacco type: cigarettes Smoking cigarettes per day: stopped in 1977 Do You Dip or Chew Tobacco: No Hx Alcohol Use: No Alcohol type: wine alcohol intake frequency: holidays/special occasions only Hx Substance Use: No substance use type: does not use Physical Exam Vital Signs Last Vital Signs Temp 36.6 C 09/29/23 12:20 Pulse 78 09/29/23 12:20 Resp 18 09/29/23 12:20 BP 146/81 H 09/29/23 12:20 Pulse Ox 94 09/29/23 12:20 O2 Del Method Room Air 09/29/23 12:20 O2 Flow Rate 3 09/21/23 18:35 Testing Laboratory Results 09/29/23 05:49 09/29/23 05:49 PT 10.6 Seconds (9.0-12.0) 09/29/23 05:49 INR 1.0 (0.9-1.1) 09/29/23 05:49 APTT 23.1 Seconds (21.0-31.0) 09/29/23 05:49 09/21/23 Unknown Gram Stain - Final Ankle,Right Aerobic and Anaerobic Culture - Final Corynebacterium species 10/25/23 Unknown Gram Stain - Final Tissue,Undefined Aerobic and Anaerobic Culture - Final Corynebacterium species
[2023-09-29] MEDS ORDERED: ATROPINE SULFATE 0.1 MG/ML 10ML SYR IV PRN (12:38)
[2023-09-29] MEDS ORDERED: fentaNYL citrate PF 100 MCG/2 ML VIAL IV PRN (12:38)
[2023-09-29] MEDS: LACTATED RINGER'S 1,000 ML IV SCH (12:57)
--- NOTE | 2023-09-29 13:07 | Surgery Progress Note ---
Date of Service September 29, 2023 Assessment & Plan (1) Traumatic open wound of right lower leg: Plan: Proceed with port placement today Consent was obtained, risks discussed including bleeding, infection, pneumothorax Admission and Anticipated Discharge Date Admission Date: September 17, 2023 Subjective Patient seen and examined. No acute events overnight. Her heparin has been stopped since midnight. Review of Systems Constitutional: no fever and no chills Physical Exam Constitutional: WD/WN, vitals as above Respiratory: normal respiratory effort, lungs clear to auscultation Cardiovascular: RRR, no murmur, no edema Gastrointestinal (Abdomen): normal bowel sounds, soft, nontender, no hepatosplenomegaly Results & Data Vital Signs (Past 12 Hours) Vital Signs Temp Pulse Resp BP Pulse Ox O2 Del Method 09/29/23 12:20 36.6 C 78 18 146/81 H 94 Room Air 09/29/23 09:00 Room Air 09/29/23 07:27 36.4 C L 87 18 126/84 95 Room Air PG Care Time/CCT Total # of Minutes Spent Total Time Spent with Patient: Total time spent is greater than 50% in coordination of care (as documented) at patient's floor/unit and/or counseling patient: Coding Level of Care Code 25848 SUB INP/OBS CARE 12/22MIN Diagnoses Traumatic open wound of right lower leg S81.801A
--- NOTE | 2023-09-29 13:07 | History & Physical Bridge Note ---
Date of Service September 29, 2023 History & Physical Bridge Note I have examined the patient, reviewed the History & Physical and in the interval since the performance of the History & Physical I have noted the following changes of clinical significance: no changes noted
[2023-09-29] MEDS ORDERED: HEPARIN (PORCINE) 1000 UNIT/ML 10 ML (CATH LAB USE ONLY) ONE (13:10)
[2023-09-29] MEDS ORDERED: BUPIVACAINE/EPINEPHRINE 0.25% 1:200,000 30 ML VIAL ONE (13:11)
[2023-09-29] MEDS ORDERED: PHENYLEPHRINE 100MCG/ML 5ML SYR ONE (13:49)
--- NOTE | 2023-09-29 14:13 | Post Operative Brief Note ---
PG Immediate Post Op with CF Date of Surgery September 29, 2023 Pre & Post Diagnosis Operation Date: 09/29/23 09:45 Pre-Op Diagnosis: Traumatic open wound of right lower leg Post-Op Diagnosis: Traumatic open wound of right lower leg I identified the patient and participated in the time-out.: Yes Procedure Operation Date: 09/29/23 09:45 Actual Procedures p A-Port Insertion, right internal jugular(Right) - Trisitn Lazo DO Surgeon Tristin Lazo DO Foot Piece Assembler none Estimated Blood Loss 5 Findings Consistent with Post-Op Diagnosis Specimens Specimen Description: None per surgeon Drains [place] Drain Anesthesia Type MAC Complications none Disposition Disposition: Recovery Room
--- NOTE | 2023-09-29 14:14 | Operative Report ---
PG Post Operative Report Pre & Post Diagnosis Operation Date: 09/29/23 09:45 Pre-Op Diagnosis: Traumatic open wound of right lower leg Post-Op Diagnosis: Traumatic open wound of right lower leg I identified the patient and participated in the time-out.: Yes Procedure Operation Date: 09/29/23 09:45 Actual Procedures p A-Port Insertion, right internal jugular(Right) - Tristin Lazo DO Surgeon Tristin Lazo DO Machine Assembler Supervisor none Estimated Blood Loss 5 Findings Consistent with Post-Op Diagnosis Specimens none Drains Mediport Anesthesia Type MAC Complications none Disposition Disposition: Recovery Room Indications 72 yo female with need for fpc antibiotics and poor venous access Description of Procedure Patient was brought to the operating room and placed in the supine position with both arms tucked. At this time MAC sedation was administered and the patients bilateral chest and neck were prepped and draped in the usual sterile fashion. A timeout was called, the procedure was verified as insertion of mediport. Appropriate pre-operative antibiotics were administered. Surgical, anesthesia and nursing teams agreed and the procedure was begun. The patient was placed in steep Trendelenburg position. The area of the right chest as well as the trajectory of the right internal jugular vein access point were anesthetized using 0.25% Marcaine with epinephrine. At this point the right internal jugular vein was accessed without issue using ultrasound guidance and non-pulsatile blood flow returned. Guide wire was introduced and fluoroscopy confirmed position. At this point using a #15 blade scalpel a transverse incision was made on the right chest and the port pocket was made using blunt dissection. The dilator-sheath complex was then introduced under direct fluoroscopy. The catheter was then tunneled from the incision to the needle stick point and introduced into the sheath. Adequate position was confirmed using fluoroscopy. The sheath was then removed while holding the catheter in place. The catheter was then attached onto the port. Port was accessed and blood return was noted. Port was then flushed using heparinized saline and placed in the pocket. Hemostasis was achieved using electrocautery and was complete. The incision was then closed using 3-0 Vicryl suture at the deep dermal level and 4-0 Monocryl in the skin in a running subcuticular fashion. Surgical glue was applied to the incision and stab incision. The patient was awakened from anesthesia having remained stable throughout the entire case and transported to PACU. Post- operative chest X-ray was ordered. I attest to the content of the Intraoperative Record and any orders documented therein. Any exceptions are noted below.
--- NOTE | 2023-09-29 14:15 | Operative Report ---
PG Post Operative Report Pre & Post Diagnosis Operation Date: 09/29/23 09:45 Pre-Op Diagnosis: Traumatic open wound of right lower leg Post-Op Diagnosis: Traumatic open wound of right lower leg I identified the patient and participated in the time-out.: Yes Procedure Operation Date: 09/29/23 09:45 Actual Procedures p A-Port Insertion, right internal jugular(Right) - Tristin Lazo DO Surgeon Tristin Lazo DO Construction Project Mgr none Estimated Blood Loss 5 Findings Consistent with Post-Op Diagnosis Specimens None Anesthesia Type MAC Complications none Disposition Disposition: Recovery Room Indications 72 yo female with need for [facility] antibiotics and poor venous access Description of Procedure I personally used and interpreted the intra-operative fluoroscopy images which guided proper catheter placement during the procedure. I attest to the content of the Intraoperative Record and any orders documented therein. Any exceptions are noted below.
--- NOTE | 2023-09-29 14:17 | Fluoroscopy Report ---
FL chest 1V frontal CLINICAL HISTORY: APORT INSERTION COMPARISON STUDY: Chest radiograph September 17, 2023. FLUOROSCOPY TIME: 10 seconds. Ka, r: 0.8937 mGy FLUOROSCOPIC IMAGES: 1 FINDINGS: Fluoroscopy was provided during insertion of a right internal jugular [id number]. Cathet er is intact. Tip projects over the SVC. IMPRESSION: Fluoroscopy provided during placement of a right internal jugular [id number]. ACT 112: Negative or not required by law. Electronically signed by: Scar Holden M.D. 09/29/2023 2:16 PM
--- NOTE | 2023-09-29 14:38 | Anesthesiology Progress Note ---
Date of Service September 29, 2023 Anesthesia Post Procedure Vital Signs Vital Signs: Temp Pulse Pulse Resp BP Pulse Ox O2 Del Method 09/29/23 14:30 73 16 118/75 95 Room Air 09/29/23 14:20 36.0 C L 75 17 114/76 99 Room Air 09/29/23 12:20 36.6 C 78 18 146/81 H 94 Room Air 09/29/23 09:00 Room Air 09/29/23 07:27 36.4 C L 87 18 126/84 95 Room Air 09/28/23 21:35 36.6 C 85 18 112/74 94 Room Air 09/28/23 20:37 Room Air 09/28/23 14:55 36.9 C 79 18 127/79 97 Room Air Pain Intensity Left Leg: Pain Intensity: 0 Right Leg: Pain Intensity: 0 Transfer of Care Handoff Completed per policy Notes Mental Status: alert / awake / arousable Patient Amnestic to Procedure: Yes Nausea / Vomiting: adequately controlled Pain: adequately controlled Airway Patency, RR, SpO2: stable & adequate BP & HR: stable & adequate Hydration State: stable & adequate Anesthetic Complications: no major complications apparent
--- NOTE | 2023-09-29 15:58 | XRay Report ---
XR chest 1V portable HISTORY: s/p port placement COMPARISON: Chest 09/17/2023. FINDINGS: Interval placement of right jugular Port-A-Cath which terminates in the expected location o f the distal SVC. No pneumothorax. No pleural effusions. The heart remains stable in size. There is a large hiatus hernia again noted. Mild interstitial thickening persists. This is likely chronic. Ther e is a right shoulder prosthesis. An IVC filter is partially visualized. IMPRESSION: Right jugular Port-A-Cath terminates at the distal SVC. No pneumothorax. ACT 112: Negative or not required by law. Electronically signed by: Jacky Saldana M.D. 09/29/2023 3:56 PM
--- NOTE | 2023-09-29 16:51 | Hospitalist Progress Note ---
Date of Service September 29, 2023 Assessment & Plan (1) Acute deep vein thrombosis of left lower extremity: Plan: History of prior DVT and PE s/p IVC filter, was out of apixaban at home for about 2 weeks -- patient states she kept forgetting to pick it up at the pharmacy IVC filter is still in place from 6 years ago. No clinical evidence of PE at this time. 09/23 - Discoloration of LLE noted with dusky appearance and edema with tight TEDs in place. Coloring improved with removal of TEDs and elevation of extremity. Warm to touch, dopplerable DP and PT pulses. Swelling and color continues to improve Transitioned from heparin to Eliquis on 09/26. Due to venous access issues, patient will required port placement Port placed today, 09/29 Eliquis has been held. Per Dr. Lazo, okay to start heparin without bolus tomorrow AM. Okay to resume Eliquis at loading dose tomorrow evening (2) Chronic ulcer of right foot: (3) Chronic refractory osteomyelitis of ankle: Plan: Recently she was ordered a right ankle MRI by her ID specialist --this was obtained on 09/18 while inpatient Right ankle MRI: Redemonstration of osteomyelitis in the distal fibula, similar in extent to prior exam. No new foci of disease are seen. Soft tissue edema and lateral ulcer without drainable fluid collection. 09/21-s/p partial excision right fibula by Dr. Velasco Operative cultures growing Corynebacterium Was on daily Augmentin prior to admission Now on IV Vanco ID final recs: 1. IV vancomycin to maintain a trough of 15-20 x 6 weeks beyond surgical excisio n. This would put her end date at 11/02/23. 2. While on vancomycin she should have once weekly CBC, BMP, and vancomycin trough 3. Patient should follow-up in the ID clinic in the next 4-6 weeks Port placed today (4) Chronic anemia: Plan: Chronic, stable Hgb 8.9, at baseline (5) Paroxysmal atrial fibrillation: Plan: Heparin/Eliquis as above Continue metoprolol for rate control (6) Hypertension: Plan: Chronic, stable Continue metoprolol (7) CAD (coronary artery disease): Plan: Chronic, stable, no reports of chest pain Continue statin and beta-jenaro (8) Multiple sclerosis: (9) Neurogenic bladder: (10) Presence of intrathecal pump: Plan: Chronic She is very sedentary per her report. Chronic ongoing baclofen pump and on scheduled tizanidine. Continue Aubagio per home regimen Neurogenic bladder. She typically self-catheterizes during the day then uses a salcedo catheter at night. Using PureWick currently. Cont Ditropan per home regimen. DVT PROPHYLAXIS Heparin/Eliquis as above Dispo -plan on DC to [facility] tomorrow Patient seen in collaboration with Dr. Armenta. Admission and Anticipated Discharge Date Admission Date: September 17, 2023 Supervising Physician Co-Signing Physician Notes Patient is seen and examined at bedside. No new complaints. Plan for port placement today. On exam patient is moderately built and nourished, no apparent distress, normocephalic atraumatic, EOMI, normal breath sounds, clear to auscultation, S1-S2,+ murmur, no lower extremity mildly edematous, ecchymotic, warm, right ankle in surgical dressing, alert, awake, oriented, grossly no focal deficits. Patient is admitted for management of acute left lower extremity DVT. IV heparin held for port placement. We will resume anticoagulation tomorrow. Transition to Eliquis as able. Also being treated for chronic refractory right ankle osteomyelitis/ulceration of right foot. s/p partial excision of right fibula by Dr. Velasco. Continue IV vancomycin as per ID. Plan to discharge to rehab facility as able. I personally reviewed the record. Patient is interviewed and examined at bedside. Patient's care is coordinated with Grazyna Morales PA-C. Please refer to the documentation above for details of patient's presentation an d for discussion of other issues. Subjective Seen and examined in 378 bed 2. Feeling much improved today, with minimal discomfort in lower extremities. Plan for port placement today for IV access. Denies any other acute events overnight. Tolerating diet without issue. No nausea, vomiting, chest pain, shortness of breath, fever, chills, dysuria, diarrhea or constipation. Review of Systems Review of Systems: At least ten systems reviewed and negative except as noted in the HPI. Physical Exam Physical Exam: Gen: WD/WN, NAD, resting in bed comfortably, A&Ox3 HEENT: Normocephalic, atraumatic, conjunctivae moist, sclerae anicteric, mucous membranes moist Lung: Clear to Auscultation bilaterally, no wheezes/rales/rhonchi Heart: Regular rate, regular rhythm, +systolic murmur Abdomen: Soft, NT, ND +BS x 4 Extremities: LLE color improving, chronic venous stasis changes, 1-2+ edema Skin: Warm, no rash Results & Data Results & Data Vital Signs (Past 12 Hours) Vital Signs Temp Pulse Pulse Resp BP Pulse Ox O2 Del Method 09/29/23 15:00 36.6 C 78 18 140/76 97 Room Air 09/29/23 14:40 36.2 C L 78 16 119/78 95 Room Air 09/29/23 14:30 73 16 118/75 95 Room Air 09/29/23 14:20 36.0 C L 75 17 114/76 99 Room Air 09/29/23 12:20 36.6 C 78 18 146/81 H 94 Room Air 09/29/23 09:00 Room Air 09/29/23 07:27 36.4 C L 87 18 126/84 95 Room Air Laboratory Results Short CBC 09/29/23 Range/Units 05:49 WBC 5.08 (4.8-10.8) K/ul Hgb 8.5 L (12.0-16.0) g/dl Hct 26.6 L (37.0-47.0) % Plt Count 277 (130-400) K/uL [facility] 09/29/23 05:49 Sodium 139 Potassium 4.3 Chloride 106 Carbon Dioxide 27 BUN 18 Creatinine 0.76 Glucose 89 Calcium 8.7 Diagnostic Findings Chest X-Ray 09/17/23 11:50 XR chest 1V portable CLINICAL HISTORY: Chest pain, nonspecific COMPARISON STUDY: Chest radiograph August 05, 2023. FINDINGS: Right shoulder arthroplasty is incidentally noted. There is no pneumothorax or pleural effusion. There is no evidence for pulmonary edema. No consolidation is identified. Hiatal hernia is incidentally noted. Cardiomediastinal is stable. IMPRESSION: No acute cardiopulmonary findings. ACT 112: Negative or not required by law. Electronically signed by: Scar Holden M.D. 09/17/2023 12:13 PM Duplex Scan Lower Extremity Artery 09/17/23 11:50 LEFT LOWER EXTREMITY ARTERIAL DOPPLER ULTRASOUND CLINICAL HISTORY: purple foot COMPARISON STUDY: Bilateral lower extremity arterial Doppler ultrasound May 12, 2023. TECHNIQUE: Grayscale and color and duplex Doppler sonography of the arterial system of the left lower extremity was performed. FINDINGS: Mild atherosclerotic plaque within the left lower extremity was noted. No elevated velocities were identified. Triphasic or biphasic flow within the left calf vessels was noted. The vessels were patent. IMPRESSION: No evidence for a hemodynamically significant stenosis within left lower extremity. Patent vessels. Mild atherosclerotic plaque. ACT 112: Negative or not required by law. Electronically signed by: Scar Holden M.D. 09/17/2023 1:10 PM Venous Doppler Study 09/17/23 11:51 LEFT LOWER EXTREMITY VENOUS DOPPLER CLINICAL HISTORY: Left lower extremity pain. Evaluate for deep venous thrombus. COMPARISON STUDY: Bilateral lower extremity venous Doppler ultrasound April 14, 2017. TECHNIQUE: Sonography of the deep venous system of the left lower extremity was performed. Compression and augmentation were evaluated. FINDINGS: Extensive deep venous thrombus within the left lower extremity is noted. There is deep venous thrombus within the left common femoral, superficial femoral and popliteal veins. There is also deep venous thrombus within the left calf veins. Left lower extremity edema is noted. IMPRESSION: Extensive deep venous thrombus within the left lower extremity. ACT 112: Negative or not required by law. Electronically signed by: Scar Holden M.D. 09/17/2023 1:02 PM Ankle MRI 09/18/23 00:00 MR ankle RT wo/w con CLINICAL HISTORY: h/o osteo on chronic supp therapy, req per ID TECHNIQUE: Multisequence, multiplanar MR images of the right ankle were obtained without contrast.. COMPARISON: Comparison is made to right ankle 05/09/2023 FINDINGS: Edema and enhancement in the lateral malleolus is unchanged from prior exam. Tendons in the anterior and posterior compartments of the leg are unremarkable. No joint effusion is seen. Soft tissue edema and enhancement are seen most prominently in the dorsal aspect of the ankle as well as the distal calf. No drainable fluid collection is seen. Redemonstration of lateral ulcer. IMPRESSION: Redemonstration of osteomyelitis in the distal fibula, similar in extent to prior exam. No new foci of disease are seen. Soft tissue edema and lateral ulcer without drainable fluid collection. ACT 112: Negative or not required by law. Electronically signed by: Morales Hanna M.D. 09/18/2023 8:50 PM KUB X-Ray 09/18/23 00:00 XR KUB/Abdomen 1 view CLINICAL HISTORY: to eval pain pump placement in prep for MRI TECHNIQUE: 1 view of the abdomen was obtained. Comparison: Comparison is made to abdomen radiographs 04/30/2023 FINDINGS: IVC filter is seen. The pain pump is in satisfactory appearance, unchanged from prior exam. Degenerative changes are seen with levoscoliosis of the lumbar spine. The bowel gas pattern is nonobstructive. A moderate amount of stool is noted within the large bowel. IMPRESSION: Satisfactory appearance of the pain pump. ACT 112: Negative or not required by law. Electronically signed by: Morales Hanna M.D. 09/18/2023 11:46 AM Chest X-Ray 09/29/23 09:45 FL chest 1V frontal CLINICAL HISTORY: APORT INSERTION COMPARISON STUDY: Chest radiograph September 17, 2023. FLUOROSCOPY TIME: 10 seconds. Ka, r: 0.8937 mGy FLUOROSCOPIC IMAGES: 1 FINDINGS: Fluoroscopy was provided during insertion of a right internal jugular [id number]. Catheter is intact. Tip projects over the SVC. IMPRESSION: Fluoroscopy provided during placement of a right internal jugular [id number]. ACT 112: Negative or not required by law. Electronically signed by: Scar Holden M.D. 09/29/2023 2:16 PM Chest X-Ray 09/29/23 15:14 XR chest 1V portable HISTORY: s/p port placement COMPARISON: Chest 09/17/2023. FINDINGS: Interval placement of right jugular Port-A-Cath which terminates in the expected location of the distal SVC. No pneumothorax. No pleural effusions. The heart remains stable in size. There is a large hiatus hernia again noted. Mild interstitial thickening persists. This is likely chronic. There is a right shoulder prosthesis. An IVC filter is partially visualized. IMPRESSION: Right jugular Port-A-Cath terminates at the distal SVC. No pneumothorax. ACT 112: Negative or not required by law. Electronically signed by: Jacky Saldana M.D. 09/29/2023 3:56 PM (2) Chronic ulcer of right foot Non-pressure ulcer stage: unspecified non-pressure ulcer stage Qualified Code(s): L97.519 - Non-pressure chronic ulcer of other part of right foot with unspecified severity
[2023-09-29] MEDS: VANCOMYCIN HCL 750 MG in SODIUM CHLORIDE 0.9% 250 ML IV SCH (20:44)
[2023-09-29] MEDS: TERIFLUNOMIDE 14 MG PO SCH (20:44)
--- NOTE | 2023-09-29 22:37 | Orthopedic Progress Note ---
Date of Service September 29, 2023 Assessment & Plan (1) Osteomyelitis of ankle: Plan: Patient seen and evaluated at bedside. Patient status post day#8 partial excision of right fibula (DOS: 09/21/23) Right fibula showed corynebacterium growth. No sensitives noted. Susceptibility is ideal for treatment. Pathology reports chronic osteomyelitis of excised bone. Does not make note of clear margins. Source control can not be determined. Patient will require 8 weeks of IV abx therapy. Dry, sterile, dressing changed applied. Incision site appears co-apted but continues to drain. Will continue to monitor while Patient remains in house. (2) Leg wound, right: Admission and Anticipated Discharge Date Admission Date: September 17, 2023 Subjective Seen and examined in 378 bed 2. Feeling much improved today, with minimal discomfort in lower extremities. Plan for port placement today for IV access. Denies any other acute events overnight. Tolerating diet without issue. No nausea, vomiting, chest pain, shortness of breath, fever, chills, dysuria, diarrhea or constipation. Review of Systems Review of Systems: All systems reviewed & are unremarkable except as noted in Subjective Physical Exam Constitutional: cooperative and comfortable Eyes: normal visual davidson by confrontation Neck: normal visual inspection Respiratory: normal respiratory effort Cardiovascular: Vessels: posterior tibial pulses present and dorsalis pedis pulses present Skin: + ulcer (right lateral ankle) Psychiatric: Orientation: alert and oriented x 3 Results & Data Vital Signs (Past 12 Hours) Vital Signs Temp Pulse Pulse Resp BP Pulse Ox O2 Del Method 09/29/23 20:29 36.4 C L 77 18 120/81 96 Room Air 09/29/23 16:00 76 18 128/66 96 Room Air 09/29/23 15:00 36.6 C 78 18 140/76 97 Room Air 09/29/23 14:40 36.2 C L 78 16 119/78 95 Room Air 09/29/23 14:30 73 16 118/75 95 Room Air 09/29/23 14:20 36.0 C L 75 17 114/76 99 Room Air 09/29/23 12:20 36.6 C 78 18 146/81 H 94 Room Air
[2023-09-30] MEDS: VANCOMYCIN HCL 750 MG in SODIUM CHLORIDE 0.9% 250 ML IV SCH (07:42)
[2023-09-30] MEDS: METOPROLOL TARTRATE 25 MG TAB PO SCH (07:43)
[2023-09-30] MEDS: tiZANidine HCL 4 MG TABLET PO SCH ×2 (07:43→12:36)
[2023-09-30] MEDS: ATORVASTATIN 20 MG TAB PO SCH (07:43)
[2023-09-30] MEDS: predniSONE 10 MG TABLET PO SCH (07:43)
[2023-09-30] MEDS: OXYBUTYNIN CHLORIDE XL 5 MG TABCR PO SCH (07:43)
[2023-09-30] MEDS: PANTOprazole 40 MG TAB PO SCH (07:43)
[2023-09-30] MEDS: DOXYCYCLINE HYCLATE 50 MG CAP PO SCH (07:44)
[2023-09-30] MEDS: ESCITALOPRAM OXALATE 20 MG TAB PO SCH (07:44)
[2023-09-30] MEDS: MAGNESIUM OXIDE 400 MG TAB PO SCH (07:44)
[2023-09-30] MEDS: CHOLECALCIFEROL 1,000 UNITS 25 MCG TAB PO SCH (07:44)
[2023-09-30 08:05] LABS: BUN Creatinine Ratio 20.8 (10-20); Calcium 9.1 mg/dl (8.6-10.3); Creatinine Clr Calc Pharmacy 56.2 ml/min; Est GFR (African American) 90.7 ml/min; Est GFR (Non-African American) 78.2 ml/min; Potassium 4.7 mmol/L (3.5-5.1)
[2023-09-30 08:18] LABS: Partial Thromboplastin Ratio 0.8; Partial Thromboplastin Time 23.9 Seconds (21.0-31.0)
[2023-09-30] MEDS ORDERED: Heparin IV Adult Wt-Based Standard *NO* INITIAL Bolus Protocol IV STA (08:33)
[2023-09-30] MEDS ORDERED: HEPARIN SODIUM/DEXTROSE 25,000 UNITS/500 ML BAG IV SCH (09:00)
[2023-09-30] MEDS: LACTATED RINGER'S 1,000 ML IV SCH (09:25)
--- NOTE | 2023-09-30 10:14 | Surgery Progress Note ---
Date of Service September 30, 2023 Assessment & Plan (1) Traumatic open wound of right lower leg: Plan: Port placement She can resume her [place] [facility] will sign off She can follow-up with me in 2 weeks to ensure medical Admission and Anticipated Discharge Date Admission Date: September 17, 2023 Subjective Patient seen and examined. Doing well with no issues after port placement. Physical Exam Constitutional: WD/WN, vitals as above Skin: Incisions without erythema or drainage Results & Data Vital Signs (Past 12 Hours) Vital Signs Temp Pulse Resp BP Pulse Ox O2 Del Method 09/30/23 09:23 36.4 C L 77 16 130/84 96 Room Air 09/30/23 08:00 Room Air PG Care Time/CCT Total # of Minutes Spent Total Time Spent with Patient: Total time spent is greater than 50% in coordination of care (as documented) at patient's floor/unit and/or counseling patient: Coding Level of Care Code 97402 Post Operative Follow-Up Diagnoses Traumatic open wound of right lower leg S81.801A
--- NOTE | 2023-09-30 13:57 | Discharge Summary ---
Discharge Summary Date of Service September 30, 2023 Notes For Next Care Provider Chronic refractory osteomyelitis of ankle, acute DVT of LLE Medication Changes From Visit Continue IV Vancomycin 750mg Q12 hours x 6 weeks. Start loading dose of Eliquis 10mg BID x 7 days this evening, then continue at 5mg BID Admission HPI Per Admitting Provider 72 yo F presents with acute LLE swelling since yesterday. Off her apixaban for two weeks, now presenting with large LLE DVT. Started on heparin in the ER. Continues on Augmentin for chronic right ankle osteomyelitis per Dr. Sierra with [facility]. Off apixaban for two weeks 2/2 being out of a refill. Swelling in the leg, since yesterday Denies significant pain, feels like "I'm carrying around a weight" Denies OTC meds No chest pain, SOB, no heart palpations Denies fevers, but states "I don't know, I have felt cold" good appetite no issues with bleeding Daughter, Rea, is present at the bedside and assists with the history. Admission Exam Per Admitting Provider CONSTITUTIONAL: WNWD, vitals as above, generally well-appearing. NAD EYES: pupils are round and equal bilaterally, normal conjunctivae, no scleral icterus ENT: external ear and nose normal, MMM NECK: trachea midline RESPIRATORY: clear to auscultation bilaterally, no crackles, rales or wheezes, normal respiratory effort CARDIOVASCULAR: regular rate and rhythm,S1/2 heard with 3/6 MARIN heard across precordium, no gallops or rubs, no JVD, 3+ peripheral edema in the LLE and 1+ peripheral edema in the RLE, both below the knee. CHEST: inspection of chest was normal GASTROINTESTINAL: soft, nontender, ND, no guarding MUSCULOSKELETAL: strength 5/5 throughout, head is normocephalic and atraumatic SKIN: warm and dry NEUROLOGIC: CN 2-12 grossly intact, no sensory deficit, normal cognition, normal speech, no tremor PSYCHIATRIC: alert cooperative and oriented to person, place and time. Euthymic mood, makes good eye contact, language grossly intact, recent and remote memory grossly intact. Principal Dx & Hospital Course #1 = Principal Diagnosis (1) Acute deep vein thrombosis of left lower extremity: History of prior DVT and PE s/p IVC filter, was out of apixaban at home for about 2 weeks -- patient states she kept forgetting to pick it up at the pharmacy IVC filter is still in place from 6 years ago. No clinical evidence of PE at this time. 09/23 - Discoloration of LLE noted with dusky appearance and edema with tight TEDs in place. Coloring improved with removal of TEDs and elevation of extremity. Warm to touch, dopplerable DP and PT pulses. Swelling and color continues to improve. Needs to be redirected to keep LLE elevated. Transitioned from heparin to Eliquis on 09/26. Due to venous access issues, patient will required port placement Port placed today, 09/29 Eliquis has been held. Per Dr. Lazo, IV heparin without bolus started this AM. Okay to resume Eliquis at loading dose tomorrow evening at [facility] (2) Chronic ulcer of right foot: (3) Chronic refractory osteomyelitis of ankle: Recently she was ordered a right ankle MRI by her ID specialist --this was obtained on 09/18 while inpatient Right ankle MRI: Redemonstration of osteomyelitis in the distal fibula, similar in extent to prior exam. No new foci of disease are seen. Soft tissue edema and lateral ulcer without drainable fluid collection. 09/21-s/p partial excision right fibula by Dr. Velasco Operative cultures growing Corynebacterium Was on daily Augmentin prior to admission Now on IV Vanco ID final recs: 1. IV vancomycin to maintain a trough of 15-20 x 6 weeks beyond surgical excision. This would put her end date at 11/02/23. 2. While on vancomycin she should have once weekly CBC, BMP, and vancomycin trough 3. Patient should follow-up in the ID clinic in the next 4-6 weeks Port placed by Dr. Lazo on 09/29, accessed today Dressing instructions per Dr. Velasco - Lauro, 4x4, kerlix, changed daily (4) Chronic anemia: Chronic, stable Hgb 8.9, at baseline (5) Paroxysmal atrial fibrillation: Heparin/Eliquis as above Continue metoprolol for rate control (6) Hypertension: Chronic, stable Continue metoprolol (7) CAD (coronary artery disease): Chronic, stable, no reports of chest pain Continue statin and beta-jenaro (8) Multiple sclerosis: (9) Neurogenic bladder: (10) Presence of intrathecal pump: Chronic She is very sedentary per her report. Chronic ongoing baclofen pump and on scheduled tizanidine. Continue Aubagio per home regimen Neurogenic bladder. She typically self-catheterizes during the day then uses a salcedo catheter at night. Using PureWick currently. Cont Ditropan per home regimen. Discharge Exam Gen: WD/WN, NAD, resting in bed comfortably, A&Ox3 HEENT: Normocephalic, atraumatic, conjunctivae moist, sclerae anicteric, mucous membranes moist Lung: Clear to Auscultation bilaterally, no wheezes/rales/rhonchi Heart: Regular rate, regular rhythm, +systolic murmur Abdomen: Soft, NT, ND +BS x 4 Extremities: LLE color improving, chronic venous stasis changes, 1-2+ edema. RLE with dressing in place, c/d/i Skin: Warm, no rash Updated Medication List Medication Instructions Recorded Confirmed Type cholecalciferol (vitamin D3) 25 1,000 units PO QAM 09/18/18 09/17/23 History mcg (1,000 unit) capsule escitalopram oxalate 20 mg tablet 20 mg PO QAM 09/18/18 09/17/23 History (Lexapro) oxybutynin chloride 15 mg 15 mg PO QAM 09/18/18 09/17/23 History tablet,extended release 24 hr prednisone 10 mg tablet 10 mg PO QAM 09/18/18 09/17/23 History omeprazole 40 mg capsule,delayed 40 mg PO QAM 07/06/21 09/17/23 History release teriflunomide 14 mg tablet 14 mg PO QPM 05/13/22 09/17/23 History (Aubagio) tizanidine 4 mg tablet (Zanaflex) 4 mg PO QID 05/13/22 09/17/23 History doxycycline hyclate 50 mg capsule 50 mg PO Q OTHER DAY Rosacea 08/10/22 09/17/23 History azelaic acid 15 % topical gel 1 applic topical DAILY 10/21/22 09/17/23 History acetaminophen 500 mg tablet 500 mg PO Q6H PRN Pain 03/05/23 09/17/23 History melatonin 3 mg tablet 3 mg PO HS PRN Insomnia 03/05/23 09/17/23 History multivitamin 1 tab PO DAILY 03/05/23 09/17/23 History metoprolol tartrate 25 mg tablet 25 mg PO DAILY 05/08/23 09/17/23 History atorvastatin 20 mg tablet (Lipitor) 20 mg PO QAM 08/04/23 09/17/23 History Baclofen Pump 0 mg SC DIRECTED 08/05/23 09/17/23 History apixaban 5 mg tablet (Eliquis) 10 mg (2 x 5 mg) PO BID #60 tabs 09/30/23 09/17/23 Rx magnesium oxide 400 mg (241.3 mg 400 mg PO BID #60 tabs 09/30/23 Rx magnesium) tablet vancomycin 750 mg intravenous 750 mg IV Q12H #10 ea 09/30/23 Rx solution Hospital Stay Data Consultations 09/17/23 13:22 ED Decision to Admit Stat 09/19/23 08:09 Consult Infectious Diseases Routine 09/19/23 17:08 Consult Podiatry Routine 09/27/23 12:30 Consult General Surgery Routine Procedures Performed Operation Date: 09/29/23 09:45 Actual Procedures p Right internal jugular A-Port insertion(Right) - Tristin Lazo, Diagnostic Imagining Performed 09/17/23 11:50 US arterial duplex LE LT Stat 09/17/23 11:51 US venous doppler LE LT Stat 09/18/23 00:00 MR ankle RT wo/w con Routine 09/29/23 09:45 FL chest 1V frontal Routine Pending Results Patient Have Any Pending Studies at Discharge: No Discharge Instructions Given to Patient (Per Discharging Provider) MEDICATION CHANGES: Continue IV Vancomycin 750mg Q12 hours Start loading dose of Eliquis 10mg BID x 7 days this evening, then continue at 5mg BID SUMMARY OF TEST RESULTS: You were admitted to hospital secondary to chronic refractory osteomyelitis of ankle, acute DVT of LLE S/p partial excision right fibula by Dr. Velasco on 09/21 R ankle operative cultures growing Corynebacterium Had port placed by Dr. Lazo on 09/29 for IV antibiotic access PENDING TEST RESULTS: None RECOMMENDATIONS FOR FOLLOW-UP: Follow up with PCP as scheduled. Per ID: 1. IV vancomycin to maintain a trough of 15-20 x 6 weeks beyond surgical excision. This would put her end date at 11/02/23. 2. While on vancomycin she should have once weekly CBC, BMP, and vancomycin trough 3. Patient should follow-up in the ID clinic in the next 4-6 weeks Start Eliquis this evening for acute LLE DVT. Dressing instructions per Dr. Velasco - Kareen, 4z4, kerlix, change dressing daily Continue medication regimen as scheduled aside from changes noted above. OTHER INSTRUCTIONS: Seek medical attention if you have: * temperature above 101 * chest pain or trouble breathing * abdominal pain, nausea, vomiting * diarrhea, dark stools or bloody stools * any unanswered questions or concerns Call 911 if symptoms are severe. Please take good care of yourself. Call if you have any questions or problems. You can reach a [facility] hospitalist on duty at [facility] 24 hours a day by calling [phone]. Total Time Total Time Spent Total Time Spent (In Minutes): 60 Supervising Physician Co-Signing Physician Notes Patient is seen and examined at bedside. States feeling well on day of discharge. Reports persistent left lower extremity edema, no significant pain. Plan to be discharged to rehab facility today. On exam patient is moderately built and nourished, no apparent distress, normocephalic atraumatic, EOMI, normal breath sounds, clear to auscultation, S1-S2,+ murmur, no lower extremity mildly edematous, ecchymotic, warm, right ankle in surgical dressing, alert, awake, oriented, grossly no focal deficits. Patient is admitted for management of acute left lower extremity DVT. IV heparin resumed today. Plan to transition to Eliquis today. Also being treated for chronic refractory right ankle osteomyelitis/ulceration of right foot. s/p partial excision of right fibula by Dr. Velasco. Continue IV vancomycin as per ID. Plan to discharge to rehab facility today. I personally reviewed the record. Patient is interviewed and examined at bedside. Patient's care is coordinated with Grazyna Morales PA-C. Please refer to the documentation above for details of patient's presentation and for discussion of other issues.
== END 2023-09-30 15:04 | DRG 300 ==
LOC: ED 11:26 → 2N 14:10 → SUATTDRO 14:10 → 2N 15:41 → 3N 09-21 00:02

== ENCOUNTER 2024-02-03 09:57 | Inpatient (IN) ==
--- NOTE | 2024-02-03 10:20 | Emergency Department Note ---
Impression & Plan Sepsis, Acute UTI ED Provider Note NAME: NADEEN ANNE AGE: 73 SEX: F : 1950 ARRIVES VIA: Ambulance INFORMANT: Patient, ED PROVIDER(S): Juan Giblert MD CHIEF COMPLAINT: Weakness, diarrhea, chills MEDICAL DECISION MAKING: Patient presents due to concern for being down for approximate 1 hour in duration. The patient does have a prior history of sepsis and chronic osteomyelitis. IV was established and blood work was obtained. Patient was ordered empiric antibiotics IV fluids blood cultures procalcitonin and lactate. Urinalysis obtained along with a chest x-ray. Bio fire also obtained. Patient's blood work shows a white count of 19 with hemoglobin 9.6 which is chronic and stable. Platelet count is unremarkable. Patient's kidney function unremarkable. Initial troponin 1100. The patient has no chest pains or shortness of breath. Pro-Bib 9.38. Urinalysis does show the possibility of infection but does have numerous epithelial cells. Patient patient's positive for leukocytes and whites. MRSA negative. The patient did spike a fever and was ordered or from out of. I did collect a wound swab from the patient's chronic right ankle wound. The patient did have ultrasounds completed of the bilateral lower extremities patient does not have any evidence of high-grade stenosis in the right lower extremity. I did inform the patient of the findings and subsequently did speak with the on-call hospital service Shelley Collazo PA-C and the patient was admitted by Dr. Armenta. Patient did receive a 30 cc/kg bolus and did receive empiric antibiotics. Patient's lactate was never elevated. Discussion w/ other healthcare providers: Vanessa Collazo PA-C and Dr. Armenta Prior /Outside records reviewed: I reviewed a discharge summary from Dr. Morales from September 30, 2023. The patient had presented that due to concern for left lower extremity DVT and has a history of chronic right ankle osteomyelitis follows with Dr. Christianson with [facility]. Patient does have osteomyelitis of the ankle chronic ulcer of the right foot. DVT was noted of the left lower extremity. Patient does have a known history of DVT PE and IVC filter. Patient also with a history of multiple sclerosis neurogenic bladder and intrathecal pump. Also history of CAD hypertension paroxysmal A-fib chronic anemia Differential diagnosis: Dehydration, UTI, pneumonia, metabolic derangment, electrolyte abnormalities, hypovolemia, anemia, cellulitis among others were considered. Diagnostics, as interpreted by me: ECG: Normal sinus rhythm, rate of 99, normal intervals, normal axis no ST elevations or TWI. Cardiac monitoring: An order was placed for continuous cardiac monitoring. The monitor shows a rate of 105 with tachycardic and regular rhythm. Patient was placed on pulse oximetry Medical decision rules: None Imaging studies: I informally interpreted the patient's chest x-ray which does not show obvious pneumothorax with formal report to follow. HPI: Patient presents from home due to concern for weakness and fatigue as well as diarrhea that is been ongoing since yesterday. The patient states that she was unable to get to the toilet today and was covered in stools. The patient states that she was on the ground for approximate 1 hour. The patient does have a history of chronic lower extremity edema left greater than right as well as chronic right-sided osteomyelitis. The patient does have a known history of DVT for which she is taking Eliquis. The patient denies any falls or trauma today. Patient states that she was weak in the just sat on the ground. Patient denies any chest pains or shortness of breath. Patient is had chills but no fever. Patient does have neurogenic bladder and does self catheter in the day and has a Zuñiga catheter in place at nighttime. The patient did recently complete a course of antibiotics for history of UTI. When asked the patient states that the legs appear their normal color and that the left-sided swelling is chronic. PAST MEDICAL HISTORY: See Below PAST SURGICAL HISTORY: See Below SOCIAL HISTORY: See Below HOME MEDICATIONS: See Below ALLERGIES: See Below VITALS: See Below PHYSICAL EXAMINATION: GENERAL: NAD, non-toxic. EYE EXAM: Normal conjunctiva. PERRL, no anisocoria and EOM's grossly intact w/o pain. OROPHARYNX: Moist mucus membranes, grossly normal dentition. NECK: Trachea midline, no stridor. Supple, no nuchal rigidity, no adenopathy, non-tender. No signs of meningismus. FROM of the neck with good chin to chest and neck extension. LUNGS: Clear to auscultation. Normal chest wall mechanics. HEART: NSR, no MRG. ABDOMEN: Abdomen soft, non-tender, no masses, no rebound or guarding. BACK: No CVA TTP. SKIN: No rashes and no bruising. UPPER EXTREMITIES: Upper extremities are grossly normal. LOWER EXTREMITIES: Left greater than right lower extremity edema without any calf pain, chronic venous stasis changes noted, cool extremities, chronic wound noted to the right lateral ankle, no obvious purulence. NEURO EXAM: A&O x3, cranial nerves II-XII grossly intact, normal speech, moves all 4 extremities. Past Med/Surg History Medical History (Updated 02/04/24 @ 07:53 by Juan Gilbert MD) Rosacea Fever History of recent hospitalization 09/2022 [facility] - sepsis History of blood transfusion Limb alert care status left arm HX: breast cancer Left breast cancer with surgery and chemo/radiation-left arm restriction Osteoarthritis of right shoulder History of GI bleed Upper GIB (2019) felt 2/2 NSAID use CAD (coronary artery disease) Non-obstructive per 06/2021 cardiac cath History of non-ST elevation myocardial infarction (NSTEMI) 06/2021 (had heart cath, no stents) History of supraventricular tachycardia History of pulmonary embolism ~ 6 yrs ago, IVC filter still in place History of DVT (deep vein thrombosis) ~6 yrs ago Hx of gastric ulcer 02/2021 Anemia GERD (gastroesophageal reflux disease) controlled, stable per pt Hypertension controlled, stable per pt Raynaud disease Neurogenic bladder SELF CATH 2-3 X'S PER DAY *RECENT HOSPITALIZATION FOR UTI Osteoporosis Multiple sclerosis Follows with Dr. Walker/[facility] Stable Surgical History Port-A-Cath in place (09/29/23) A-Port Insertion, right internal jugular(Right) - Tristin Lazo, S/p reverse total shoulder arthroplasty right: 05/25/22 LMA#4. No postop issues per anesthesia progress note. History of cardiac cath Cardiac cath (07/06/21; [facility]) > Right dominant coronary system. No evidence of aortic stenosis. Normal left ventricular filling pressures. Nonobstructive disease involving the ostial LAD. No evidence of acute coronary syndrome. Approximately 50% ostial stenosis of the LAD. There was some very mild disease at the ostium of the left circumflex. Recommendations: Medical management. History of esophagogastroduodenoscopy (EGD) History of colonoscopy History of tooth extraction History of appendectomy S/P partial hysterectomy History of open reduction and internal fixation (ORIF) procedure "left hip" H/O left mastectomy with lymph node removal>LEFT ARM RESTRICTION S/P IVC filter Presence of intrathecal pump baclofen pump in place--status post revision/replacement 08/10/2022 Family History Mother Heart disorder Other No family history of adverse response to anesthesia Social History Smoking Status: Former smoker Tobacco Type: Cigarettes packs per day: 1; Cigarettes Per Day: stopped in 1977; Second Hand Exposure: No; Do You Dip or Chew Tobacco: No; Hx Alcohol Use: No Hx Substance Use: No Preferred Language: Yemeni Communication Ability: Effective Visual Impairment: Limited Hearing Ability: Use of Hearing Aid Electrical Equipment Tester Required: No Beliefs That Will Affect Care: None marital status: / Current Living Situation: Alone Current Living Situation Comment: Daughters are an hour away current occupational status: retired How many Children do You have: 3 Other Information That Helps Us Care for You: No Feels Safe at Home: Yes Safety Concerns: Feels Safe At This Time Childhood Exposure to Second-Hand Smoke: Yes Diet: regular caffeine: Yes Assistive Devices: Hearing Aid - Bilateral, Walker and Wheelchair Allergies Allergies Allergy/AdvReac Type Severity Reaction Status Date / Time No Known Allergies Allergy Verified 02/03/24 13:13 Home Meds Home Medications Medication Instructions Recorded Confirmed cholecalciferol (vitamin D3) 25 1,000 units PO QAM 09/18/18 02/03/24 mcg (1,000 unit) capsule escitalopram oxalate 20 mg tablet 20 mg PO QAM 09/18/18 02/03/24 (Lexapro) oxybutynin chloride 15 mg 15 mg PO QAM 09/18/18 02/03/24 tablet,extended release 24 hr prednisone 10 mg tablet 10 mg PO QAM 09/18/18 02/03/24 omeprazole 40 mg capsule,delayed 40 mg PO QAM 07/06/21 02/03/24 release teriflunomide 14 mg tablet 14 mg PO QPM 05/13/22 02/03/24 (Aubagio) doxycycline hyclate 50 mg capsule 50 mg PO Q2D Rosacea 08/10/22 02/03/24 melatonin 3 mg tablet 3 mg PO HS 03/05/23 02/03/24 multivitamin 1 tab PO DAILY 03/05/23 02/03/24 metoprolol tartrate 25 mg tablet 25 mg PO BID 05/08/23 02/03/24 atorvastatin 20 mg tablet (Lipitor) 20 mg PO QAM 08/04/23 02/03/24 Baclofen Pump 0 mg SC DIRECTED 08/05/23 02/03/24 tizanidine 4 mg tablet (Zanaflex) 4 mg PO QID 12/15/23 02/03/24 apixaban 5 mg tablet (Eliquis) 5 mg PO BID 02/03/24 02/03/24 Results & Data (ED) Vital Signs Vital Signs - 24 hr 02/03/24 10:15 02/03/24 11:39 02/03/24 11:39 Temperature 36.2 C L Temperature Source Oral Pulse Rate 102 H Pulse Rate [Apical] 105 H Respiratory Rate 16 22 Respiratory Effort / Characteristics Non-Labored Respiratory Depth Normal Blood Pressure 117/76 Blood Pressure [Right Arm] 112/74 Blood Pressure Mean 89 Blood Pressure Mean [Right Arm] 86 Pulse Oximetry 96 94 94 Oxygen Delivery Method Room Air Room Air Room Air Sepsis Recent Fever Within 48 Hours No Sepsis New/Unexplained Change in Mental Status No Sepsis Action Taken by Nursing No Action Required 02/03/24 12:27 02/03/24 12:36 02/03/24 13:14 Temperature Temperature Source Pulse Rate 109 H Pulse Rate [Apical] 122 H Respiratory Rate 22 Respiratory Effort / Characteristics Respiratory Depth Normal Blood Pressure Blood Pressure [Right Arm] 147/106 H Blood Pressure Mean Blood Pressure Mean [Right Arm] 119 Pulse Oximetry 96 Oxygen Delivery Method Sepsis Recent Fever Within 48 Hours Sepsis New/Unexplained Change in Mental Status Sepsis Action Taken by Nursing Laboratory Data 02/04/24 06:13 02/04/24 06:13 Lab Results 02/03/24 02/03/24 Range/Units 10:40 13:02 WBC 19.00 H (4.8-10.8) K/ul RBC 3.60 L (4.20-5.40) M/uL Hgb 9.6 L (12.0-16.0) g/dl Hct 29.7 L (37.0-47.0) % MCV 82.5 (80.0-100.0) fL MCH 26.7 (25.0-34.0) pg MCHC 32.3 (32.0-36.0) g/dL RDW Std Deviation 53.0 H (36.4-46.3) fL RDW Coeff of Tiffanie 17.7 H (11.5-14.5) % Plt Count 243 (130-400) K/uL MPV 10.9 (9.4-12.4) fL Immature Gran % (Auto) 0.7 % Neut % (Auto) 90.8 % Lymph % (Auto) 1.6 % [place] % (Auto) 6.6 % Eos % (Auto) 0.0 % Baso % (Auto) 0.3 % Neut # (Auto) 17.26 H (1.40-6.50) K/uL Lymph # (Auto) 0.30 L (1.20-3.40) K/uL [place] # (Auto) 1.26 H (0.11-0.59) K/uL Eos # (Auto) 0.00 (0.00-0.50) K/uL Baso # (Auto) 0.05 (0.00-0.20) K/uL Immature Gran # (Auto) 0.13 (0.01-0.20) K/uL Toxic Vacuolation 1+ Ovalocytes 1+ Sodium 137 (136-145) mmol/L Potassium 3.6 (3.5-5.1) mmol/L Chloride 101 (98-107) mmol/L Carbon Dioxide 28 (21-32) mmol/L Anion Gap 8 (3-11) BUN 21 (6-23) mg/dl Creatinine 0.97 (0.6-1.2) mg/dl Est Cr Clr Drug Dosing 50.5 ml/min Est GFR ( Amer) 68.1 ml/min Est GFR (Non-Af Amer) 58.8 ml/min BUN/Creatinine Ratio 21.6 H (10-20) Glucose 87 (70-99(Fasting)) mg/dl Lactate 1.8 (0.4-2.0) mmol/L Calcium 8.8 (8.6-10.3) mg/dl Magnesium 1.5 L (1.7-2.4) mg/dl Total Bilirubin 0.6 (0.2-1.0) mg/dl Direct Bilirubin 0.1 (0-0.2) mg/dl AST 29 (13-39) U/L ALT 22 (7-52) U/L Alkaline Phosphatase 48 (34-104) U/L Total Creatine Kinase 369 H (26-192) U/L Troponin I High Sens 1140.0 H* 1375.9 H* D (0-14) pg/ml Total Protein 6.2 (6.0-8.3) gm/dl Albumin 3.7 (3.4-5.0) gm/dl Procalcitonin 9.38 H (0-0.5) ng/ml Enterococc faecalis PCR DETECTED A (NotDetected) Streptococcus sp PCR DETECTED A (NotDetected) Strep agalactiae (PCR) DETECTED A (NotDetected) James/B-Vanco Res Genes VRE Not Detected (NotDetected) Bld Cult ID Panel PCR See PCR Comment (NotDetected) Administered Medications Acetaminophen (Acetaminophen 325 Mg Tab) 650 mg PO Q4H PRN PRN Reason: Pain or Fever Stop: 03/04/24 15:25 Last Admin: 02/03/24 18:15 Dose: 650 mg Documented By: AM Apixaban (Apixaban 5 Mg Tablet) 5 mg PO BID [facility] Stop: 03/04/24 20:59 Last Admin: 02/03/24 21:27 Dose: 5 mg Documented By: PAH Cefepime HCl 2,000 mg/ Syringe 20 mls @ 5 mls/min IV Q12H MICHELLE; Protocol Stop: 02/10/24 22:59 Last Admin: 02/04/24 00:53 Dose: 5 mls/min Documented By: PAH Hydrocortisone Sodium (Succinate 50 mg/ Syringe) 1 mls @ 4 mls/min IV Q6H MICHELLE Stop: 03/04/24 17:29 Last Admin: 02/04/24 05:51 Dose: 4 mls/min Documented By: Admin: 02/04/24 00:01 Dose: 4 mls/min Documented By: Admin: 02/03/24 18:17 Dose: 4 mls/min Documented By: AM Melatonin (Melatonin 3 Mg Tab) 3 mg PO HS MICHELLE Stop: 03/04/24 20:59 Last Admin: 02/03/24 21:26 Dose: 3 mg Documented By: LEDA Tizanidine HCl (Tizanidine Hcl 4 Mg Tablet) 4 mg PO QID MICHELLE Stop: 03/04/24 16:59 Last Admin: 02/03/24 21:27 Dose: 4 mg Documented By: Admin: 02/03/24 18:17 Dose: 4 mg Documented By: AM Discontinued Medications Acetaminophen (Acetaminophen 325 Mg Tab) 650 mg PO NOW STA Stop: 02/04/24 00:50 Last Admin: 02/04/24 01:56 Dose: 650 mg Documented By: LEDA Sodium Chloride (Nss) 1,000 mls @ 999 mls/hr IV .Q1H1M MICHELLE Stop: 02/03/24 12:45 Last Admin: 02/03/24 14:16 Dose: Not Given Documented By: Infusion: 02/03/24 13:35 Dose: Infused Documented By: Admin: 02/03/24 11:14 Dose: 999 mls/hr Documented By: HANNAH Cefepime HCl (Maxipime) 20 mls @ 5 mls/min IV NOW ONE Stop: 02/03/24 11:03 Last Admin: 02/03/24 11:12 Dose: 5 mls/min Documented By: HANNAH Daptomycin 350 mg/ Syringe 7 mls @ 3.5 mls/min IV NOW ONE; Protocol Stop: 02/03/24 11:01 Last Admin: 02/03/24 11:12 Dose: 3.5 mls/min Documented By: HANNAH Acetaminophen (Ofirmev) 1,000 mg in 100 mls @ 400 mls/hr IV NOW STA Stop: 02/03/24 13:40 Last Infusion: 02/03/24 13:53 Dose: Infused Documented By: Admin: 02/03/24 13:31 Dose: 400 mls/hr Documented By: HANNAH Sodium Chloride (Nss) 500 mls @ 999 mls/hr IV .Q31M ONE Stop: 02/03/24 13:56 Last Admin: 02/03/24 14:17 Dose: Not Given Documented By: HANNAH Magnesium Sulfate/Dextrose (Magnesium Sulfate / D5w) 1 gm in 100 mls @ 50 mls/hr IV ONE ONE Stop: 02/03/24 16:55 Last Infusion: 02/03/24 19:59 Dose: Infused Documented By: Admin: 02/03/24 17:00 Dose: 50 mls/hr Documented By: EP Sodium Chloride (Nss) 1,000 mls @ 80 mls/hr IV .[id number] MICHELLE Stop: 02/04/24 03:55 Last Infusion: 02/04/24 05:23 Dose: Infused Documented By: Admin: 02/03/24 16:48 Dose: 80 mls/hr Documented By: EP Sodium Chloride (Nss) 1,000 mls @ 999 mls/hr IV .Q1H1M ONE Stop: 02/03/24 16:50 Last Infusion: 02/03/24 20:00 Dose: Infused Documented By: Admin: 02/03/24 16:47 Dose: 999 mls/hr Documented By: EP Vancomycin HCl 1,500 mg/ (Sodium Chloride) 530 mls @ 200 mls/hr IV ONE ONE Stop: 02/03/24 18:38 Last Infusion: 02/03/24 20:00 Dose: Infused Documented By: Admin: 02/03/24 17:04 Dose: 200 mls/hr Documented By: EP Albumin Human (Albumin 25%) 25 gm in 100 mls @ 50 mls/hr IV ONE ONE Stop: 02/03/24 22:24 Last Infusion: 02/03/24 23:08 Dose: Infused Documented By: Admin: 02/03/24 21:00 Dose: 50 mls/hr Documented By: PAH Metronidazole (Flagyl) 500 mg in 100 mls @ 100 mls/hr IV NOW STA; Protocol Stop: 02/04/24 01:51 Last Infusion: 02/04/24 03:08 Dose: Infused Documented By: Admin: 02/04/24 01:53 Dose: 100 mls/hr Documented By: PAH Discharge Plan Visit Data Chief Complaint: Fall Stated Complaint: ILLNESS, WEAKNESS, DIZZINESS ED Provider: Juan Gilbert Discharge Problem: Sepsis, Acute UTI Patient Disposition: Admitted As Inpatient Discharge Instructions Interventions: ED Discharge Assessment Last Done: 02/03/24 14:45 Discharge Problem: Sepsis Qualifiers: Sepsis type: sepsis due to unspecified organism Sepsis acute organ dysfunction status: unspecified Qualified Code(s): A41.9 - Sepsis, unspecified organism
[2024-02-03 11:03] LABS: Hematocrit (blood only) 29.7 % (37.0-47.0); Hemoglobin 9.6 g/dl (12.0-16.0); Mean Corpuscular Hemoglobin 26.7 pg (25.0-34.0); Mean Corpuscular Hgb Conc 32.3 g/dL (32.0-36.0); Mean Corpuscular Volume 82.5 fL (80.0-100.0); Mean Platelet Volume 10.9 fL (9.4-12.4); Platelet Count 243 K/uL (130-400); RDW Coefficient of Variation 17.7 % (11.5-14.5)
--- NOTE | 2024-02-03 11:09 | XRay Report ---
SINGLE VIEW CHEST CLINICAL HISTORY: Sepsis. FINDINGS: An AP, portable, upright chest radiograph is compared to study dated 09/29/2023. Correlation is made with chest CT dated 06/20/2017. The examination is degraded by portable technique and patient rotation. A right internal jugular central venous infusion port is unchanged in position. A hiatal h ernia is noted. The heart is enlarged noting atherosclerotic calcification of the thoracic aorta. The re is prominence of the pulmonary vasculature. Scarring/atelectasis is seen at the lung bases. No air space consolidation or large pleural effusion is identified. No pneumothorax is seen. The skeletal st ructures are osteopenic. The bony thorax is grossly intact. A right shoulder arthroplasty is in place . Arthritic change is noted in the left shoulder. Degenerative change and scoliosis is seen in the sp ine. Surgical clips project over the left axilla. An IVC filter is noted in the upper abdomen. IMPRESSION: 1. Cardiomegaly with prominence of the pulmonary vasculature. Correlate clinically for evidence of fl uid overload/congestive failure. 2. No airspace consolidation or large pleural effusion is identified. ACT 112: Negative or not required by law. Electronically signed by: Germán Villa M.D. 02/03/2024 11:07 AM
[2024-02-03] MEDS: DAPTOmycin 350 MG in SYRINGE 0 ML IV ONE (11:12)
[2024-02-03] MEDS: CEFEPIME 20 ML IV ONE (11:12)
[2024-02-03] MEDS: SODIUM CHLORIDE 0.9% 1,000 ML IV SCH ×2 (11:14→16:48)
[2024-02-03 11:22] LABS: Albumin Level 3.7 gm/dl (3.4-5.0); BUN Creatinine Ratio 21.6 (10-20); Bilirubin Direct 0.1 mg/dl (0-0.2); Bilirubin,Total 0.6 mg/dl (0.2-1.0); Calcium 8.8 mg/dl (8.6-10.3); Creatinine Clr Calc Pharmacy 50.5 ml/min; Est GFR (African American) 68.1 ml/min; Est GFR (Non-African American) 58.8 ml/min; Magnesium 1.5 mg/dl (1.7-2.4); Potassium 3.6 mmol/L (3.5-5.1); Total Protein 6.2 gm/dl (6.0-8.3)
[2024-02-03 11:36] LABS: Basophils # (auto) 0.05 K/uL (0.00-0.20); Basophils % (auto) 0.3 %; Immature Granulocytes # (auto) 0.13 K/uL (0.01-0.20); Immature Granulocytes % (auto) 0.7 %; Lymphocytes % (auto) 1.6 %; Monocytes # (auto) 1.26 K/uL (0.11-0.59); Monocytes % (auto) 6.6 %; Neutrophils # (auto) 17.26 K/uL (1.40-6.50); Neutrophils % (auto) 90.8 %; Ovalocytes 1+; Toxic Vacuolation 1+
[2024-02-03 11:45] LABS: Appearance Urine Clear (Clear); Bacteria Urine Automated Negative (Negative); Bilirubin Urine Negative (Negative); Blood Urine 3+ (Negative); Color Urine Dark Yellow; Epithelial Cell Urine Auto >30 /lpf (0-5); Glucose Urine UA Negative (Negative); Ketones Urine Trace (Negative); Leukocyte Esterase Urine 1+ (Negative); Nitrite Urine Negative (Negative); Protein Urine 2+ (Negative); RBC Urine Automated >30 /hpf (0-4); Specific Gravity Urine 1.019 (1.000-1.030); Urobilinogen Urine Negative (Negative); WBC Urine Automated >30 /hpf (0-5); pH Urine 6.5 (4.5-7.5)
[2024-02-03] MEDS: ACETAMINOPHEN 1,000 MG/100 ML VIAL IV STA (13:31)
[2024-02-03 13:47] LABS: Troponin I High Sensitivity 1375.9 pg/ml (0-14)
--- NOTE | 2024-02-03 13:59 | History & Physical Report ---
Date of Service February 03, 2024 Assessment & Plan (1) Sepsis: (2) UTI (urinary tract infection): (3) Cellulitis of left lower leg: Plan: Patient is 73-year-old female with PMH HTN, CAD, history NSTEMI, paroxysmal atrial fibrillation, history of PE, DVT, chronic anticoagulation on Eliquis, MS, neurogenic bladder requiring self catheterization, chronic anemia, rosacea, chronic osteomyelitis right lower extremity, history of breast cancer, and others listed below presented to ER with complaint of tactile fevers, generalized weakness, diarrhea x 1 day. 2 loose BM's yesterday without abdominal pain. Outpatient urine culture 12/27/2023 + E. coli, Klebsiella pneumoniae. Patient was treated with Bactrim. Sepsis. Possible source UTI, possible LLE cellulitis In ER T: 36.2 C, P: 102, RR: 16, BP 117/76, 96% on room air. WBC: 19, lactate: 1.8, Procalcitonin: 9 CXR: Cardiomegaly with pulmonary vascular prominence Arterial lower extremity Doppler: There is no sonographic evidence of high-grade stenosis or focal vessel cut off seen throughout the arteries of the right or left lower extremity. In ER given 1 L NSS, cefepime, daptomycin. Reevaluation. Patient awake, alert and oriented x 3. BP 115/75, P: 112, R: 20, 94% on room air. Brisk capillary refill. Lungs clear to auscultation, sinus tachycardia. Blood culture, urine culture pending Cefepime, vancomycin Give additional NSS bolus followed by gentle IVF Consider CT abdomen/pelvis Stool studies, C-diff if recurrent diarrhea CBC, BMP in a.m. MRI lower extremity pending to rule out osteomyelitis Wound nurse consult (4) Elevated troponin: Plan: Troponin:1140-->1375 CK: 369 Initial EKG sinus rhythm, rate 99, Q waves septal leads repeat EKG sinus tachycardia, rate 116, Q waves septal leads. Q waves septal leads seen in prior EKGs per chart review Patient without chest pain, shortness of breath, dizziness, palpitations, dizziness Current sinus tachycardia, appears dehydrated in setting of sepsis. possible demand ischemia Echo pending Trend troponin On chronic Eliquis, and will continue Continue metoprolol, atorvastatin Cardiology consult EKG in am (5) Diarrhea: Plan: 2 episodes diarrhea yesterday Denies abdominal pain. No further diarrhea today If recurrent diarrhea plan to obtain stool culture, C. difficile May need to consider CT abdomen pelvis (6) Hypomagnesemia: Plan: Magnesium: 1.5 Replace and monitor (7) Chronic refractory osteomyelitis of ankle: Plan: History of chronic osteomyelitis right ankle Right ankle x-ray: No evidence osteomyelitis Chronic right ankle ulcer Wound nurse consult (8) CAD (coronary artery disease): Plan: History nonocclusive CAD. History NSTEMI Workup as above Continue metoprolol tartrate with holding parameters, statin (9) History of pulmonary embolism: (10) S/P IVC filter: Plan: History of PE. IVC filter in place. History DVT left lower extremity in 09/2023. Continue Eliquis. Patient denies any missed doses (11) Paroxysmal atrial fibrillation: Plan: Anticoagulated on Eliquis Current sinus tachycardia Continue metoprolol tartrate, Eliquis (12) Multiple sclerosis: (13) Neurogenic bladder: Plan: Self catheterization at home Has baclofen pump On Aubagio, prednisone, tizanidine Place Zuñiga catheter for now (14) Chronic anemia: Plan: Hgb: 9.6. Baseline in 9's Monitor H&H (15) Rosacea: Plan: On chronic doxycycline. Will hold doxycycline for now as on above antibiotics (16) Breast cancer: Plan: History left breast cancer s/p surgery, radiation DVT Prophylaxis On Eliquis Full Code as per discussion with pt Follows with Simi Hernandez for routine care Pt was seen and care coordinated with Dr Quintanilla. See addendum I spent a total of 82 minutes reviewing notes, outpatient records, labs, medication, coordinating, documenting and providing care for this patient excluding time spent in the performance of separately billed services. History of Present Illness Chief Complaint: weakness, diarrhea Primary Care Provider: KEVIN Lema Patient is 73-year-old female with PMH HTN, CAD, history NSTEMI, paroxysmal atrial fibrillation, history of PE, DVT, chronic anticoagulation on Eliquis, MS, neurogenic bladder requiring self catheterization, chronic anemia, rosacea, chronic osteomyelitis right lower extremity, history of breast cancer, and others listed below presented to ER with complaint of tactile fevers, generalized weakness, diarrhea x 1 day. History obtained from patient, inpatient and outpatient chart review. Patient states yesterday had tactile fevers. Did not take temperature at home. She reports yesterday had 2 large loose bowel movements. Denies any nausea, vomiting abdominal pain. Patient states did not eat today as is afraid would have recurrent diarrhea. States uses wheelchair and minimal ambulation with walker. Patient states today tried to ambulate however was feeling weak and sat on floor for approximately 1.5 hours. Denies fall, hitting head, dizziness, syncope, chest pain, SOB. Denies any missed Eliquis doses. Patient states 2 weeks ago hit left anterior resendez on car door causing skin tears/abrasions. Self caths approximately 6 times a day. Reports history recurrent UTI. Outpatient urine culture 12/27/2023 + E. coli, Klebsiella pneumoniae. Patient was treated with Bactrim. History DVT left lower extremity in 09/2023. Patient states since left lower extremity has been more swollen than right lower extremity and has had reddish appearance. Patient had port placed 09/2023 due to poor venous access. History chronic osteomyelitis rig ht ankle. Denies melena, hematochezia, noted hematuria. Denies ill contacts, recent travel, diaphoresis, HOLT, vision changes, neck pain, orthopnea, palpitations, cough, sore throat, choking, otalgia, rhinorrhea, abdominal pain, paresthesias, increased extremity edema, rashes. Allergies Allergy/AdvReac Type Severity Reaction Status Date / Time No Known Allergies Allergy Verified 02/03/24 13:13 Home Medications Medication Instructions Recorded Confirmed Type cholecalciferol (vitamin D3) 25 1,000 units PO QAM 09/18/18 02/03/24 History mcg (1,000 unit) capsule escitalopram oxalate 20 mg tablet 20 mg PO QAM 09/18/18 02/03/24 History (Lexapro) oxybutynin chloride 15 mg 15 mg PO QAM 09/18/18 02/03/24 History tablet,extended release 24 hr prednisone 10 mg tablet 10 mg PO QAM 09/18/18 02/03/24 History omeprazole 40 mg capsule,delayed 40 mg PO QAM 07/06/21 02/03/24 History release teriflunomide 14 mg tablet 14 mg PO QPM 05/13/22 02/03/24 History (Aubagio) doxycycline hyclate 50 mg capsule 50 mg PO Q2D Rosacea 08/10/22 02/03/24 History melatonin 3 mg tablet 3 mg PO HS 03/05/23 02/03/24 History multivitamin 1 tab PO DAILY 03/05/23 02/03/24 History metoprolol tartrate 25 mg tablet 25 mg PO BID 05/08/23 02/03/24 History atorvastatin 20 mg tablet (Lipitor) 20 mg PO QAM 08/04/23 02/03/24 History Baclofen Pump 0 mg SC DIRECTED 08/05/23 02/03/24 History tizanidine 4 mg tablet (Zanaflex) 4 mg PO QID 12/15/23 02/03/24 History apixaban 5 mg tablet (Eliquis) 5 mg PO BID 02/03/24 02/03/24 History Past Med/Surg History Medical History (Updated 02/04/24 @ 10:27 by Toby Vargas DO) Rosacea Fever History of recent hospitalization 09/2022 [facility] - sepsis History of blood transfusion Limb alert care status left arm HX: breast cancer Left breast cancer with surgery and chemo/radiation-left arm restriction Osteoarthritis of right shoulder History of GI bleed Upper GIB (2019) felt 2/2 NSAID use CAD (coronary artery disease) Non-obstructive per 06/2021 cardiac cath History of non-ST elevation myocardial infarction (NSTEMI) 06/2021 (had heart cath, no stents) History of supraventricular tachycardia History of pulmonary embolism ~ 6 yrs ago, IVC filter still in place History of DVT (deep vein thrombosis) ~6 yrs ago Hx of gastric ulcer 02/2021 Anemia GERD (gastroesophageal reflux disease) controlled, stable per pt Hypertension controlled, stable per pt Raynaud disease Neurogenic bladder SELF CATH 2-3 X'S PER DAY *RECENT HOSPITALIZATION FOR UTI Osteoporosis Multiple sclerosis Follows with Dr. Walker/[facility] Stable Surgical History Port-A-Cath in place (09/29/23) A-Port Insertion, right internal jugular(Right) - Tristin Lazo DO S/p reverse total shoulder arthroplasty right: 05/25/22 LMA#4. No postop issues per anesthesia progress note. History of cardiac cath Cardiac cath (07/06/21; [facility]) > Right dominant coronary system. No evidence of aortic stenosis. Normal left ventricular filling pressures. Nonobstructive disease involving the ostial LAD. No evidence of acute coronary syndrome. Approximately 50% ostial stenosis of the LAD. There was some very mild disease at the ostium of the left circumflex. Recommendations: Medical management. History of esophagogastroduodenoscopy (EGD) History of colonoscopy History of tooth extraction History of appendectomy S/P partial hysterectomy History of open reduction and internal fixation (ORIF) procedure "left hip" H/O left mastectomy with lymph node removal>LEFT ARM RESTRICTION S/P IVC filter Presence of intrathecal pump baclofen pump in place--status post revision/replacement 08/10/2022 Family History Mother Heart disorder Other No family history of adverse response to anesthesia Social History Smoking Status: Former smoker Tobacco Type: Cigarettes packs per day: 1; Cigarettes Per Day: stopped in 1977; Second Hand Exposure: No; Do You Dip or Chew Tobacco: No; Hx Alcohol Use: No Hx Substance Use: No Preferred Language: Bulgarian Communication Ability: Effective Visual Impairment: Limited Hearing Ability: Use of Hearing Aid Yeast Culture Developer Required: No Beliefs That Will Affect Care: None marital status: / Current Living Situation: Alone Current Living Situation Comment: Daughters are an hour away current occupational status: retired How many Children do You have: 3 Other Information That Helps Us Care for You: No Feels Safe at Home: Yes Safety Concerns: Feels Safe At This Time Childhood Exposure to Second-Hand Smoke: Yes Diet: regular caffeine: Yes Assistive Devices: Walker and Wheelchair Review of Systems Review of Systems: All systems reviewed & are unremarkable except as noted in HPI & below Physical Exam Physical Exam: General: no acute distress, non-toxic appearing, WDWN Head: normocephalic, atraumatic Eyes: conjunctiva non-injected, anicteric ENT: normal inspection external ears, nose, mucous membranes mildly dry Neck: supple, trachea midline Lungs: clear, no respiratory distress, no wheezing/rhonchi/rales CV: +tachycardia, rate 112, + murmur Abd: normal BS, soft, non-tender Ext: no calf tenderness. +LLE larger than RLE. LLE: +skin tears abrasions anterior leg +erythema anterior leg extending to dorsal foot without tenderness to palpation, lower leg with slight dusky appearance. RLE: +ulcer right lateral ankle without surrounding erythema or edema, no discharge and non-tender Neuro: A&O x 3, no focal deficits noted, normal affect Skin: warm, dry, +port to right upper chest without edema, erythema or tenderness. skin as above in extremities Results & Data Results & Data Vital Signs (Past 12 Hours) Vital Signs Temp Pulse Pulse Resp BP BP Pulse Ox 02/03/24 13:14 122 H 22 96 02/03/24 12:36 147/106 H 02/03/24 12:27 109 H 02/03/24 11:39 94 02/03/24 11:39 105 H 22 112/74 94 02/03/24 10:15 36.2 C L 102 H 16 117/76 96 O2 Del Method 02/03/24 13:14 02/03/24 12:36 02/03/24 12:27 02/03/24 11:39 Room Air 02/03/24 11:39 Room Air 02/03/24 10:15 Room Air Laboratory Results Short CBC 02/03/24 Range/Units 10:40 WBC 19.00 H (4.8-10.8) K/ul Hgb 9.6 L (12.0-16.0) g/dl Hct 29.7 L (37.0-47.0) % Plt Count 243 (130-400) K/uL BMP 02/03/24 10:40 Sodium 137 Potassium 3.6 Chloride 101 Carbon Dioxide 28 BUN 21 Creatinine 0.97 Glucose 87 Calcium 8.8 Cardiac Enzymes 02/03/24 Range/Units 13:02 Total Creatine Kinase 369 H (26-192) U/L Liver Function 02/03/24 Range/Units 10:40 Total Bilirubin 0.6 (0.2-1.0) mg/dl Direct Bilirubin 0.1 (0-0.2) mg/dl AST 29 (13-39) U/L ALT 22 (7-52) U/L Alkaline Phosphatase 48 (34-104) U/L Albumin 3.7 (3.4-5.0) gm/dl Urine 02/03/24 Range/Units Unknown Urine Color Dark Yellow Urine Appearance Clear (Clear) Urine pH 6.5 (4.5-7.5) Ur Specific Saxis 1.019 (1.000-1.030) Urine Protein 2+ H (Negative) Urine Glucose (UA) Negative (Negative) Diagnostic Findings Chest X-Ray 02/03/24 10:36 SINGLE VIEW CHEST CLINICAL HISTORY: Sepsis. FINDINGS: An AP, portable, upright chest radiograph is compared to study dated 09/29/2023. Correlation is made with chest CT dated 06/20/2017. The examination is degraded by portable technique and patient rotation. A right internal jugular central venous infusion port is unchanged in position. A hiatal hernia is noted. The heart is enlarged noting atherosclerotic calcification of the thoracic aorta. There is prominence of the pulmonary vasculature. Scarring/atelectasis is seen at the lung bases. No airspace consolidation or large pleural effusion is identified. No pneumothorax is seen. The skeletal structures are osteopenic. The bony thorax is grossly intact. A right shoulder arthroplasty is in place. Arthritic change is noted in the left shoulder. Degenerative change and scoliosis is seen in the spine. Surgical clips project over the left axilla. An IVC filter is noted in the upper abdomen. IMPRESSION: 1. Cardiomegaly with prominence of the pulmonary vasculature. Correlate clinically for evidence of fluid overload/congestive failure. 2. No airspace consolidation or large pleural effusion is identified. ACT 112: Negative or not required by law. Electronically signed by: Germán Villa M.D. 02/03/2024 11:07 AM Duplex Scan Lower Extremity Artery 02/03/24 12:14 ULTRASOUND BILATERAL LOWER EXTREMITY ARTERIAL CLINICAL HISTORY: Lower extremity discoloration. COMPARISON STUDY: Bilateral lower extremity arterial ultrasound dated 05/12/2023. TECHNIQUE: Real-time, grayscale and color Doppler sonography of the arteries of the right and left lower extremities performed from the inguinal crease to the foot. Ankle-brachial indices were not assessed for this examination. FINDINGS: Right lower extremity: There are triphasic arterial waveforms in the common femoral artery with velocities measuring up to 87 cm/s. The profunda femoris artery is patent with velocities measuring up to 79 cm/s. There are triphasic waveforms throughout the superficial femoral and popliteal arteries. Velocities in the superficial femoral artery measuring up to 99 cm/s, and velocities in the popliteal artery measure up to 96 cm/s. There is three-vessel runoff to the foot. Velocities within the calf arteries measure up to 78 cm/s. The dorsalis pedis is patent with velocities measuring up to 40 cm/s. Left lower extremity: There are triphasic arterial waveforms in the common femoral artery with velocities measuring up to 115 cm/s. The profunda femoris artery is patent with velocities measuring up to 92 cm/s. There are triphasic waveforms throughout the superficial femoral and popliteal arteries. Velocities in the superficial femoral artery measure up to 92 cm/s and velocities in the popliteal artery measure up to 58 cm/s. There is three-vessel runoff to the foot. Velocities in the calf arteries measure up to 82 cm/s. The dorsalis pedis artery is patent with velocities measuring up to 52 cm/s. IMPRESSION: There is no sonographic evidence of high-grade stenosis or focal vessel cut off seen throughout the arteries of the right or left lower extremity. Dictated: 02/03/2024 1:23 PM Transcribed: 02/03/2024 1:42 PM Misha [id number] [facility] [id number] Electronically signed by: Germán Villa M.D. 02/03/2024 2:18 PM Ankle X-Ray 02/03/24 16:26 XR ankle RT 2V CLINICAL HISTORY: r/o osteomyelitis TECHNIQUE: 2 views of the right ankle were obtained. Comparison: None available at the time of this dictation. FINDINGS: No evidence of bony erosion is seen. The joint spaces are well preserved. The ankle mortise is intact. No soft tissue abnormality is seen. IMPRESSION: No radiographic evidence of osteomyelitis. If clinical concern remains, MRI is a more sensitive modality. ACT 112: Negative or not required by law. Electronically signed by: Morales Hanna M.D. 02/03/2024 5:19 PM KUB X-Ray 02/03/24 17:26 XR KUB/Abdomen 1 view CLINICAL HISTORY: MRI confirm pain pump TECHNIQUE: 1 view of the abdomen was obtained. Comparison: Comparison is made to abdomen radiograph 09/18/2023 FINDINGS: IVC filter is seen. Dependent pump is seen and is not perpendicular to the axis of the scan. Degenerative changes are seen in the visualized skeleton. Left total hip arthroplasty is seen. The bowel gas pattern is nonobstructive. Small stool burden is seen. IMPRESSION: Satisfactory appearance of the pain pump for MRI scanning. ACT 112: Negative or not required by law. Electronically signed by: Morales Hanna M.D. 02/03/2024 6:57 PM Supervising Physician Co-Signing Physician Notes Pt was seen and examined by myself, Gema Quintanilla MD on the day of service. Care was coordinated with Emily Collazo PA-C. 73yoF presenting with septic shock, likely infectious source of lower extremity and UTI. septic shock -Fluids cautiously with noted pleural effusion, stress steroid dosing with hydrocortisone UA suggestive of infection, urine Cx pending Blood cx x2 pending XR ankle, MRI LLE. Pt with baclofen pump, needs pain management to reprogram after MRI N/V/D- consider CT abd/pelvis, supportive care Elevated trop-echo, cardiology consult Otherwise as above. I spent a total [id number] coordinating, documenting, and providing care for this patient excluding time spent in the performance of separately billed services (2) UTI (urinary tract infection) Hematuria presence: without hematuria Urinary tract infection type: acute cystitis Qualified Code(s): N30.00 - Acute cystitis without hematuria
[2024-02-03] MEDS: SODIUM CHLORIDE 0.9% 500 ML IV ONE (14:17)
--- NOTE | 2024-02-03 14:20 | Ultrasound Report ---
ULTRASOUND BILATERAL LOWER EXTREMITY ARTERIAL CLINICAL HISTORY: Lower extremity discoloration. COMPARISON STUDY: Bilateral lower extremity arterial ultrasound dated 05/12/2023. TECHNIQUE: Real-time, grayscale and color Doppler sonography of the arteries of the right and left lo wer extremities performed from the inguinal crease to the foot. Ankle-brachial indices were not asses sed for this examination. FINDINGS: Right lower extremity: There are triphasic arterial waveforms in the common femoral artery with veloc ities measuring up to 87 cm/s. The profunda femoris artery is patent with velocities measuring up to 79 cm/s. There are triphasic waveforms throughout the superficial femoral and popliteal arteries. Edward ocities in the superficial femoral artery measuring up to 99 cm/s, and velocities in the popliteal ar oswald measure up to 96 cm/s. There is three-vessel runoff to the foot. Velocities within the calf emil sascha measure up to 78 cm/s. The dorsalis pedis is patent with velocities measuring up to 40 cm/s. Left lower extremity: There are triphasic arterial waveforms in the common femoral artery with veloci ties measuring up to 115 cm/s. The profunda femoris artery is patent with velocities measuring up to 92 cm/s. There are triphasic waveforms throughout the superficial femoral and popliteal arteries. Edward ocities in the superficial femoral artery measure up to 92 cm/s and velocities in the popliteal arter y measure up to 58 cm/s. There is three-vessel runoff to the foot. Velocities in the calf arteries me asure up to 82 cm/s. The dorsalis pedis artery is patent with velocities measuring up to 52 cm/s. IMPRESSION: There is no sonographic evidence of high-grade stenosis or focal vessel cut off seen thro ughout the arteries of the right or left lower extremity. Dictated: 02/03/2024 1:23 PM Transcribed: 02/03/2024 1:42 PM Misha [id number] [facility] [id number] Electronically signed by: Germán Villa M.D. 02/03/2024 2:18 PM
[2024-02-03] MEDS ORDERED: ONDANSETRON INJ 2 MG/ML 2 ML VIAL IV PRN (15:26)
[2024-02-03] MEDS ORDERED: VANCOMYCIN CONSULT ACTIVE PRN (15:29)
--- NOTE | 2024-02-03 16:12 | Cardiology Consultation ---
Date of Consultation February 03, 2024 Assessment & Plan (1) Sepsis: (2) Tachycardia: (3) Multiple sclerosis: Plan 73-year-old female with complex underlying history as noted including multiple sclerosis with neurogenic bladder, multiple bilateral lower extremity issues including past osteomyelitis right ankle, abrasions and edema left leg Patient presents with 2-day history of decline in function, diarrhea, weakness and intermittent fever followed by fall with inability to stand. Presented to ER with findings consistent with acute sepsis with hypotension tachycardia, elevated white cell count and procalcitonin. Troponin elevated Echocardiogram reflects hyperdynamic LV function, mild aortic stenosis as per past studies no wall motion underwent 1. Acute sepsis with multiple possible sources: Per primary service. Patient remains hypotensive and tachycardic would consider further fluid resuscitation. Patient on chronic corticosteroids may require steroid stress dosing 2. Sinus tachycardia secondary to #1. Will change metoprolol to tartrate to metoprolol succinate but continue as blood pressure allows 3. Elevated troponin: Suspect demand ischemia question whether duration on ground was longer than patient describes versus traumatic injuries. Echocardiogram reflects hyperdynamic LV function and no wall motion abnormality. Past cardiac catheterization without obstructive disease 2020. As above changing beta-jenaro to extended release. Continue aspirin and atorvastatin 4. Mild aortic stenosis on echocardiography. Aortic valve not well-visualized on current study given rate. Consider repeat once heart rate slowed 5. Past DVT/pulmonary embolus and chart history of paroxysmal atrial fibrillation on Eliquis History of Present Illness Reason for Consultation: Abnormal EKG, sinus tachycardia, elevated troponin Requesting Physician: Gema Quintanilla, Attending Physician: Gema Quintanilla MD History of Present Illness Patient is a complex 73-year-old female with ongoing medical issues 1. Multiple sclerosis with limited mobility, neurogenic bladder with urinary retention with straight cath, chronic prednisone use 2. Prior DVT with pulmonary emboli, on chronic Eliquis, indwelling IVC filter 3. Non STEMI with non obstructive CAD by cath in 2020. 4. Dyslipidemia 5. Chronic venous insufficiency with LE edema 6. Hypertension 7. PAF 8. Mild calcific aortic stenosis 9. Chronic anemia on iron infusion therapy 10. Right ankle ulceration with past osteomyelitis Patient referred after presenting to the ER noting at least 2-day history of declining function intermittent fevers weakness and malaise. Notes at least 1 day history of diarrhea and loose stools. Today fell while attempting to reach the bathroom unable to rise down for over 1 hour. Notes injury to the leg recently "car door hit her left leg" 2 weeks ago with multiple abrasions Patient brought to the ER and found to have parameters consistent with acute sepsis. Received additional 1 L normal saline and antibiotic Tachycardic on presentation lab work notable for elevated troponin Denies any chest pains, dizziness lightness syncope or near syncope Has had fevers and chills x 24 to 48 hours Appetite fair Did take medications this morning No bleeding issues on anticoagulation and takes Eliquis consistently Allergies Allergy/AdvReac Type Severity Reaction Status Date / Time No Known Allergies Allergy Verified 02/03/24 13:13 Home Medications Medication Instructions Recorded Confirmed Type cholecalciferol (vitamin D3) 25 1,000 units PO QAM 09/18/18 02/03/24 History mcg (1,000 unit) capsule escitalopram oxalate 20 mg tablet 20 mg PO QAM 09/18/18 02/03/24 History (Lexapro) oxybutynin chloride 15 mg 15 mg PO QAM 09/18/18 02/03/24 History tablet,extended release 24 hr prednisone 10 mg tablet 10 mg PO QAM 09/18/18 02/03/24 History omeprazole 40 mg capsule,delayed 40 mg PO QAM 07/06/21 02/03/24 History release teriflunomide 14 mg tablet 14 mg PO QPM 05/13/22 02/03/24 History (Aubagio) doxycycline hyclate 50 mg capsule 50 mg PO Q2D Rosacea 08/10/22 02/03/24 History melatonin 3 mg tablet 3 mg PO HS 03/05/23 02/03/24 History multivitamin 1 tab PO DAILY 03/05/23 02/03/24 History metoprolol tartrate 25 mg tablet 25 mg PO BID 05/08/23 02/03/24 History atorvastatin 20 mg tablet (Lipitor) 20 mg PO QAM 08/04/23 02/03/24 History Baclofen Pump 0 mg SC DIRECTED 08/05/23 02/03/24 History tizanidine 4 mg tablet (Zanaflex) 4 mg PO QID 12/15/23 02/03/24 History apixaban 5 mg tablet (Eliquis) 5 mg PO BID 02/03/24 02/03/24 History Patient History Medical History (Updated 02/03/24 @ 16:35 by Osito Goodwin MD) Rosacea Fever History of recent hospitalization 09/2022 [facility] - sepsis History of blood transfusion Limb alert care status left arm HX: breast cancer Left breast cancer with surgery and chemo/radiation-left arm restriction Osteoarthritis of right shoulder History of GI bleed Upper GIB (2019) felt 2/2 NSAID use CAD (coronary artery disease) Non-obstructive per 06/2021 cardiac cath History of non-ST elevation myocardial infarction (NSTEMI) 06/2021 (had heart cath, no stents) History of supraventricular tachycardia History of pulmonary embolism ~ 6 yrs ago, IVC filter still in place History of DVT (deep vein thrombosis) ~6 yrs ago Hx of gastric ulcer 02/2021 Anemia GERD (gastroesophageal reflux disease) controlled, stable per pt Hypertension controlled, stable per pt Raynaud disease Neurogenic bladder SELF CATH 2-3 X'S PER DAY *RECENT HOSPITALIZATION FOR UTI Osteoporosis Multiple sclerosis Follows with Dr. Walker/[facility] Stable Surgical History Port-A-Cath in place (09/29/23) A-Port Insertion, right internal jugular(Right) - Tristin Lazo, S/p reverse total shoulder arthroplasty right: 05/25/22 LMA#4. No postop issues per anesthesia progress note. History of cardiac cath Cardiac cath (07/06/21; [facility]) > Right dominant coronary system. No evidence of aortic stenosis. Normal left ventricular filling pressures. Nonobstructive disease involving the ostial LAD. No evidence of acute coronary syndrome. Approximately 50% ostial stenosis of the LAD. There was some very mild disease at the ostium of the left circumflex. Recommendations: Medical management. History of esophagogastroduodenoscopy (EGD) History of colonoscopy History of tooth extraction History of appendectomy S/P partial hysterectomy History of open reduction and internal fixation (ORIF) procedure "left hip" H/O left mastectomy with lymph node removal>LEFT ARM RESTRICTION S/P IVC filter Presence of intrathecal pump baclofen pump in place--status post revision/replacement 08/10/2022 Family History Mother Heart disorder Other No family history of adverse response to anesthesia Social History Smoking Status: Former smoker Tobacco Type: Cigarettes packs per day: 1; Cigarettes Per Day: stopped in 1977; Second Hand Exposure: No; Do You Dip or Chew Tobacco: No; Hx Alcohol Use: No Hx Substance Use: No Preferred Language: Setswana Communication Ability: Effective Visual Impairment: Limited Hearing Ability: Use of Hearing Aid Intelligence Chief Required: No Beliefs That Will Affect Care: None marital status: / Current Living Situation: Alone Current Living Situation Comment: Daughters are an hour away current occupational status: retired How many Children do You have: 3 Other Information That Helps Us Care for You: No Feels Safe at Home: Yes Safety Concerns: Feels Safe At This Time Childhood Exposure to Second-Hand Smoke: Yes Diet: regular caffeine: Yes Assistive Devices: Hearing Aid - Bilateral, Walker and Wheelchair Review of Systems Review of Systems: All systems reviewed & are unremarkable except as noted in HPI & below Physical Exam Constitutional: + ill appearing, + thin and + disheveled Eyes: PERRL, conjunctivae normal, anicteric sclerae Neck: trachea midline, no thyromegaly Respiratory: normal respiratory effort, lungs clear to auscultation Cardiovascular: Rate/Rhythm: regular rate, regular rhythm and + tachycardic Heart Sounds: + murmur (Grade 2-3 with 6 systolic murmur heard through the precordium no diastolic ) Vessels: no JVD Gastrointestinal (Abdomen): normal bowel sounds, soft, nontender, no hepatosplenomegaly Skin: Left leg with edema and erythema below the knee with eschar and abrasions over the resendez Right leg chronic eschar distal extremity Psychiatric: Orientation: alert and oriented x 3 Results & Data Vital Signs (Past 12 Hours) Vital Signs Temp Pulse Pulse Resp BP BP BP 02/03/24 15:33 37.2 C 104 H 18 75/50 L 02/03/24 14:22 112 H 22 115/75 02/03/24 13:14 122 H 22 02/03/24 12:36 147/106 H 02/03/24 12:27 109 H 02/03/24 11:39 02/03/24 11:39 105 H 22 112/74 02/03/24 10:15 36.2 C L 102 H 16 117/76 Pulse Ox O2 Del Method 02/03/24 15:33 93 Room Air 02/03/24 14:22 92 Room Air 02/03/24 13:14 96 02/03/24 12:36 02/03/24 12:27 02/03/24 11:39 94 Room Air 02/03/24 11:39 94 Room Air 02/03/24 10:15 96 Room Air Laboratory Results Laboratory Results - last 24 hr 02/03/24 02/03/24 02/03/24 10:40 13:02 Unknown WBC 19.00 H RBC 3.60 L Hgb 9.6 L Hct 29.7 L MCV 82.5 MCH 26.7 MCHC 32.3 RDW Std Deviation 53.0 H RDW Coeff of Tiffanie 17.7 H Plt Count 243 MPV 10.9 Immature Gran % (Auto) 0.7 Neut % (Auto) 90.8 Lymph % (Auto) 1.6 Ray % (Auto) 6.6 Eos % (Auto) 0.0 Baso % (Auto) 0.3 Neut # (Auto) 17.26 H Lymph # (Auto) 0.30 L Ray # (Auto) 1.26 H Eos # (Auto) 0.00 Baso # (Auto) 0.05 Immature Gran # (Auto) 0.13 Toxic Vacuolation 1+ Ovalocytes 1+ Sodium 137 Potassium 3.6 Chloride 101 Carbon Dioxide 28 Anion Gap 8 BUN 21 Creatinine 0.97 Est Cr Clr Drug Dosing 50.5 Est GFR ( Amer) 68.1 Est GFR (Non-Af Amer) 58.8 BUN/Creatinine Ratio 21.6 H Glucose 87 Lactate 1.8 Calcium 8.8 Magnesium 1.5 L Total Bilirubin 0.6 Direct Bilirubin 0.1 AST 29 ALT 22 Alkaline Phosphatase 48 Total Creatine Kinase 369 H Troponin I High Sens 1140.0 H* 1375.9 H* D Total Protein 6.2 Albumin 3.7 Procalcitonin 9.38 H Urine Color Dark Yellow Urine Appearance Clear Urine pH 6.5 Ur Specific [place] 1.019 Urine Protein 2+ H Urine Glucose (UA) Negative Urine Ketones Trace H Urine Blood 3+ H Urine Nitrite Negative Urine Bilirubin Negative Urine Urobilinogen Negative Ur Leukocyte Esterase 1+ H Urine WBC (Auto) >30 H Urine RBC (Auto) >30 H U Hyaline Cast (Auto) 5-10 H U Epithel Cells (Auto) >30 H Urine Bacteria (Auto) Negative Diagnostic Findings Echocardiogram 02/03/2024 Sinus tachycardia Mild left ventricular hypertrophy with hyperdynamic LV function EF greater than 70% Calcific aortic valve poorly visualized with mild aortic stenosis by parameters Cardiac catheterization 07/08/2020 images reviewed personally Mild luminal irregularities all vasculature with mild focal taper of the ostium of the left anterior descending,
--- NOTE | 2024-02-03 16:32 | Electrocardiogram Report ---
Test Reason : Blood Pressure : / mmHG Vent. Rate : 099 BPM Atrial Rate : 099 BPM P-R Int : 158 ms QRS Dur : 060 ms QT Int : 344 ms P-R-T Axes : 050 028 033 degrees QTc Int : 441 ms Normal sinus rhythm Poor R wave progression, consider anterior DE vs. lead placement vs. LVH Abnormal ECG When compared with ECG of 17-SEP-2023 13:24, No significant change Confirmed by Navneet Sen ([id number]) on 02/03/2024 4:32:34 PM Referred By: REFERRED SELF Confirmed By:Navneet Sen
--- NOTE | 2024-02-03 16:36 | Electrocardiogram Report ---
Test Reason : Blood Pressure : / mmHG Vent. Rate : 116 BPM Atrial Rate : 116 BPM P-R Int : 152 ms QRS Dur : 066 ms QT Int : 324 ms P-R-T Axes : 046 016 055 degrees QTc Int : 450 ms Sinus tachycardia Low voltage QRS Possible Old Septal infarct (cited on or before 05-AUG-2023) Abnormal ECG When compared with ECG of 03-FEB-2024 11:22, No significant change was found Confirmed by Navneet Sen ([id number]) on 02/03/2024 4:36:09 PM Referred By: REFERRED SELF Confirmed By:Navneet Sen
[2024-02-03] MEDS: SODIUM CHLORIDE 0.9% 1,000 ML IV ONE (16:47)
[2024-02-03] MEDS: MAGNESIUM SULFATE / D5W 1 GM/100 ML BAG IV ONE (17:00)
[2024-02-03] MEDS: VANCOMYCIN HCL 1,500 MG in SODIUM CHLORIDE 0.9% 500 ML IV ONE (17:04)
--- NOTE | 2024-02-03 17:20 | XRay Report ---
XR ankle RT 2V CLINICAL HISTORY: r/o osteomyelitis TECHNIQUE: 2 views of the right ankle were obtained. Comparison: None available at the time of this dictation. FINDINGS: No evidence of bony erosion is seen. The joint spaces are well preserved. The ankle mortise is intact . No soft tissue abnormality is seen. IMPRESSION: No radiographic evidence of osteomyelitis. If clinical concern remains, MRI is a more sensitive modal ity. ACT 112: Negative or not required by law. Electronically signed by: Morales Hanna M.D. 02/03/2024 5:19 PM
[2024-02-03] MEDS ORDERED: PNEUMOCOCCAL VACCINE (PCV20) 20-VAL CONJ-DIP CRM/PF 0.5 ML SYR IM ONE (18:00)
[2024-02-03] MEDS: ACETAMINOPHEN 325 MG TAB PO PRN (18:15)
[2024-02-03] MEDS: HYDROCORTISONE SOD 50 MG in SYRINGE 0 ML IV SCH (18:17)
[2024-02-03] MEDS: tiZANidine HCL 4 MG TABLET PO SCH (18:17)
--- NOTE | 2024-02-03 19:00 | XRay Report ---
XR KUB/Abdomen 1 view CLINICAL HISTORY: MRI confirm pain pump TECHNIQUE: 1 view of the abdomen was obtained. Comparison: Comparison is made to abdomen radiograph 09/18/2023 FINDINGS: IVC filter is seen. Dependent pump is seen and is not perpendicular to the axis of the scan. Degenera tive changes are seen in the visualized skeleton. Left total hip arthroplasty is seen. The bowel gas pattern is nonobstructive. Small stool burden is seen. IMPRESSION: Satisfactory appearance of the pain pump for MRI scanning. ACT 112: Negative or not required by law. Electronically signed by: Morales Hanna M.D. 02/03/2024 6:57 PM
[2024-02-03] MEDS ORDERED: METOPROLOL TARTRATE 25 MG TAB PO SCH (21:00)
[2024-02-03] MEDS: ALBUMIN 25% 25 GM/100 ML VIAL IV ONE (21:00)
--- OUTSIDE RECORDS SUMMARY | 2024-02-03 21:25 | External Medical Summary | Summary of Care ---
Author Name Unknown Organization [facility] Address [address] [place] [address] Phone [phone] Care Team Providers Care Customs And Immigration Officer Name Role Phone Simi Hernandez Tami BROWN Primary Care Provider Reason for Visit * Reason Onset Date Comments Appointment 01/27/2024 NO SHOW 01/27/24 Encounter Details Date Type Department Care Team (Late st Contact Info) Description 01/27/2024 Telephone Hematology/Oncology [facility] 200 [facility] [place] [place] [address] Mana Denton CRNP [address] [place] [address] Appointment (NO SHOW 01/27/24) Allergies No known active allergiesdocumented as of this encounter (statuses as of 01/30/2024) Medications Medication Sig Dispensed Refills Start Date End Date Status VITAMIN D 1000 UNITS PO CAPSIndications:Oste oporosis One capsule daily 30 Cap 5 03/21/2013 Active Aubagio 14 MG Oral Tablet Take 1 Tablet by mouth in the morning. Takes at night. 0 Active Transdermal Pain Base External Cream Apply to feet daily as needed. 500 g 2 10/10/2020 Active Additional Information Patient not taking.Reported on 11/08/2023 Acetaminophen 500 MG Oral Tablet Take 1 Tablet by mouth every 6 hours as needed. 0 Active Melatonin 3 MG Oral Tablet Disintegrating Take by mouth 3 mg every night at bedtime . 30 Tablet 0 09/07/2022 Active Multivitamin Adult Oral Tablet Take by mouth 1 Tablet daily . 30 Tablet 0 09/07/2022 Active Aspirin EC 81 MG Oral Tablet Delayed Release Take 1 Tablet by mouth in the morning. 0 01/04/2023 Active Additional Information Patient not taking.Reported on 09/06/2023 Atorvastatin Calcium 20 MG Oral Tablet (Lipitor) TAKE 1 TABLET BY MOUTH ONCE DAILY IN THE MORNING 90 Tablet 2 01/13/2023 Active Azelaic Acid 15 % External Gel (Finacea)Indications :Rosacea Apply to face twice daily as needed 50 g 1 03/08/2023 Active Eliquis 5 MG Oral Tablet Take 1 tablet by mouth twice daily 60 Tablet 5 04/09/2023 Active Oxybutynin Chloride ER 15 MG Oral Tablet Extended Release 24 Hour (Ditropan XL)Indications:Neuro genic bladder TAKE 1 TABLET BY MOUTH IN THE MORNING 90 Tablet 1 04/09/2023 Active Doxycycline Hyclate 100 MG Oral Tablet Delayed Release Take 1 Tablet by mouth in the morning and 1 Tablet before bedtime. 0 Active LUCITA Knee Brace Medium Please eval and fit for bilateral knee brace as recommended by physical therapy. 2 Each 0 07/27/2023 Active tiZANidine HCl 4 MG Oral Tablet (Zanaflex) Take 1 Tablet by mouth every 6 hours as needed for Muscle spasms. 360 Tablet 0 11/07/2023 Active Omeprazole 40 MG Oral Capsule Delayed Release (PriLOSEC) Take 1 Capsule by mouth in the morning. 30 Capsule 3 11/08/2023 Active Magnesium Oxide 400 240 MG Oral Packet (Magnesium Oxide) 400 mg in the morning and 400 mg before bedtime. 0 09/30/2023 Active predniSONE 10 MG Oral Tablet (Deltasone)Indicatio ns:Multiple sclerosis (HCC) Take 1 tablet by mouth once daily 90 Tablet 1 11/14/2023 Active Escitalopram Oxalate 20 MG Oral Tablet (Lexapro) Take 1 tablet by mouth once daily 90 Tablet 3 11/24/2023 Active Doxycycline Hyclate 50 MG Oral Capsule (Vibramycin)Indicati ons:Rosacea TAKE 1 CAPSULE BY MOUTH EVERY OTHER DAY 45 Capsule 0 11/24/2023 Active Metoprolol Tartrate 25 MG Oral Tablet (Lopressor) Take 1 tablet by mouth twice daily 180 Tablet 1 12/22/2023 Active documented as of this encounter (statuses as of 01/30/2024) Active Problems Problem Noted Date Diagnosed Date Dysuria 12/27/2023 Need for prophylactic vaccin ation and inoculation against influenza 10/17/2023 Protein-calorie malnutrition 07/21/2023 Pyogenic inflammation of bone 06/09/2023 Encounter for management of wound VAC 06/09/2023 Bladder dysfunction 04/05/2023 Paroxysmal A-fib 03/17/2023 Hydronephrosis 03/17/2023 HTN, goal below 140/90 01/04/2023 Dyslipidemia, goal LDL below 70 01/04/2023 Debility 11/05/2022 Coronary artery disease invo lving [place] coronary artery of [place] heart without angina pectoris 11/05/2022 Medical home patient encounter 09/30/2022 S/P shoulder replacement, right 09/07/2022 ESBL E. coli carrier 09/07/2022 Presence of intrathecal baclofen pump 09/07/2022 History of [place] (myocardial infarction) 05/12/2022 Mass of chest wall, right 12/23/2021 SVT (supraventricular tachycardia) 10/22/2020 Hiatal hernia 05/07/2020 Gastroesophageal reflux disease with esophagitis 05/05/2020 Depression with anxiety 05/05/2020 H/O: upper GI bleed 05/05/2020 Hx of nonmelanoma skin cancer 09/21/2018 Overview: BCC L upper back x 2 03/2023, SCCIS L cheek, L forehead x 2 06/2022, SCCIS L cheek 08/2019 (curettage), SCCIS L nasal dorsum 09/2019, SCCIS L cheek 04/2018 (Mohs) Anemia of chronic disease 03/16/2018 High risk for fracture due to osteoporosis by DE XA scan 09/09/2017 History of pulmonary embolism 04/18/2017 History of deep vein thrombosis (DVT) of lower e xtremity 12/13/2016 Stasis dermatitis of both legs 12/13/2016 Hx of actinic keratosis 11/10/2015 Raynaud's syndrome 10/29/2013 Neurogenic bladder 03/21/2008 Rosacea 06/28/2002 Multiple sclerosis documented as of this encounter (statuses as of 01/30/2024) Resolved Problems Problem Noted Date Diagnosed Date Resolved Date Noninfected skin tear of left leg 04/05/2023 07/21/2023 UTI due to Klebsiella species 03/17/2023 06/09/2023 Pain and swelling of right lower leg 11/05/2022 11/25/2022 Hypotension 10/29/2022 01/07/2023 Closed displaced fracture of right acromial process 09/07/2022 01/07/2023 Closed displaced fracture of body of right scapula 09/07/2022 01/07/2023 Dyspnea 09/15/2021 05/12/2022 NSTEMI (non-ST elevated myoc ardial infarction) 07/16/2021 05/12/2022 PVC (premature ventricular contraction) 10/22/2020 05/12/2022 Iron deficiency anemia 08/13/202012/28 Sacroiliitis 12/19/2018 08/13/2019 Chronic ulcer of left foot 12/19/2018 0 07/30/2020 Venous (peripheral) insufficiency 04/29/2017 08/13/2019 Open wound of heel 01/22/2016 7 Edema 01/05/2012 08/04/2017 Second degree burn of lower leg 01/03/2010 03/31/2017 Chest pain 05/01/2008 03/31/2017 ADVANCE DIRECTIVE INFORMATION 04/08/2008 05/05/2020 Overview: No, Advance Directive brochure given to patient at prior appointment. Urinary tract infection 03/21/200806/2017 Urinary incontinence 03/21/2008 018 Overview: ICD-10 update of inactive term Overflow incontinence 03/21/20082016 Osteoporosis 07/26/2007 05/05/2020 Breast neoplasm 09/10/2004 12/19/2018 Overview: ICD-10 update of inactive term Incomplete bladder emptying 06/25/2003 08/13/2019 intradermal nevus, left naso labial fold-1.13.03 01/10/2003 12/28/2016 Lump or mass in breast 10/03/200009/10 documented as of this encounter (statuses as of 01/30/2024) Immunizations Name Administration Dates Next Due COVID-19 mRNA, LNP-s, No Pre serve, 2-Dose Series (Pfizer) 04/18/2022,11/12/2021,01/28/2021,01/14 PPD 06/05/2018 Pneumococcal Conjugate Vacc, 13 Valent (Prevnar) 07/30/2020 Pneumococcal Polysaccharide PPV23 (Pneumovax) 07/05/2011 Seasonal Influenza Virus Vac cine, Unspecified Formulation 10/02/2021,09/18/2020,10/22/2019,12/07,11/04/2017,11/10/2016,09/12/2015 ,08/29/2014,08/22/2013,10/16/2012,07/29,10/20/2010,09/05/2009, 8 Seasonal Influenza, PF, 6 M & above, IM , (FluLaval or Fluzone) 09/18/2020,12/07/2018,11/04/2017 Seasonal Influenza, Quadriva lent Hd (Fluzone Hd) 10/13/2023,10/15/2022,10/02/2021 Seasonal Influenza, Quadriva lent, No Preserve, IM 11/10/2016,09/12/2015 Seasonal Influenza, Split, I IV3, With Preserve, Inj 08/29/2014,08/22/2013,10/16/2012,08/11,10/20/2010,09/05/2009,10/03/2008 Seasonal Influenza, Trivalen t, Adjuvanted, 65+ yrs 10/22/2019 TDAP (age 11 and older)(Adacel) 04/30/2009 documented as of this encounter Social History Tobacco Use Types Packs/Day Years Used Date Smoking Tobacco: Former Cigarettes 1 6 0 07/05/1974 - 07/05/1980 Smokeless Tobacco: Never Comments:quit about about [age] Alcohol Use Standard Drinks/Week Comments Not Currently 0 (1 standard drink = 0.6 oz pure alcohol) every once in awhile a glass of wine but not often PHQ-2 Answer Date Recorded PHQ Adult Total Score 0 02/10/2021 Hunger Vital Sign Answer Date Recorded Within the past 12 months, y ou worried that your food would run out before you got the money to buy more. Never true 01/20/20 Within the past 12 months, t he food you bought just didn't last and you didn't have money to get more. Never true 01/20/2024 Sex and Gender Information Value Date Recorded Sex Assigned at Female 02/07/2020 1:52 PM EDT Gender Identity Female 02/07/2020 1:52 PM EDT Sexual Orientation Straight 02/07/2020 1: 52 PM EDT Job Start Date Occupation Industry Not on file Not on file Not on file documented as of this encounter Miscellaneous Notes * Telephone Encounter - Blanche Pearson OSA - 01/30/2024 9:03 AM EST Called left message for pt to call and reschedule * Telephone Encounter - Jacquelyn Hinojosa LPN - 01/27/2024 2:50 PM EST Patient is a NO SHOW 01/27/24 KEVIN Barnes schedule Please contact patient to reschedule missed appt documented in this encounter Plan of Treatment Upcoming Encounters Date Type Department Care Team (Late st Contact Info) Description 02/15/2024 1:40 PM EDT Office Visit Family Practice [facility] [address] [place] [id number] Simi Hernandez CRNP [address] [place] [address] 04/10/2024 8:00 AM EDT Office Visit [facility] [address] [place] [address] Radha Boogie MD 200 [facility] [place] [address] 05/24/2024 1:40 PM EDT Office Visit Dermatology [facility] 200 [facility] [place] [address] Lisa Garcia PA-C 200 [facility] [place] [phone] 06/25/2024 3:30 PM EDT Cardiac Studies Cardiac Studies, [facility] 132 [facility] [place] [address] Scheduled Procedures Name Priority Associated Diagnoses Date/Ti me COLONOSCOPY FLEXIBLE PROXIMAL DIAGNOSTIC Recall Screen for colon cancer Health Maintenance Due Date Last Done Comments Albumin/Creatinine Ratio 1970 DTaP,Tdap,and Td Vaccines (2 - Td or Tdap) 04/30/2019 04/30/2009 DXA Scan 05/15/2020 05/15/2018, 04/29, 05/06/2014, Additional history exists *BISPHONATE OR OTHER ACCEPTABLE MEDICATION NEEDED FOR OSTEOPOROSIS (REFER TO SMARTSET #1146) 05/24/2020 Pneumococcal Vaccine: 65+ Years (3 of 3 - PPSV23 or PCV20) 09/24/2020 07/30/2020, 07/05/2011 Depression Screening 02/10/2022 02/10/2021 COVID-19 Vaccine (2022-24 season) 2023 06/04/2022, 04/18/2022, 11/12/2021, Additional history exists Mammogram 04/15/2024 04/15/2023, 03/28, 12/17/2019, Additional history exists GFR 01/05/2025 01/05/2024, 12/2023, 10/31/2023, Additional history exists COLONOSCOPY-EVERY 5 YRS AGES 18-100 05/05/2028 05/05/2023, 05/05/2023, 11/04/2022, Additional history exists VITAMIN D LEVEL ONCE IN A LIFETIME-USE SMARTSET# 51621 Completed 01/17/2023, 04/05/2022, 04/28/2021, Additional history exists Influenza Vaccine (FLU shot) Completed 10/13/2023, 10/15/2022, 10/02/2021, Additional history exists GARDASIL-HPV IMMUNIZATION SERIES Aged Out No longer eligible based on patient's age to complete this topic Hepatitis B Aged Out No longer eligi ble based on patient's age to complete this topic MENINGOCOCCAL (MENACTRA/MENVEO) Aged Out No longer eligible based on patient's age to complete this topic Zoster Vaccines Discontinued documented as of this encounter Medical Devices Not on filedocumented as of this encounter Advance Directives Latest Code Status on File Code Status Date Activated Date Inactivated Comments Full Code 01/06/2018 7:45 AM 01/06/2018 2:47 PM This or lamont reflects the patients wishes and were consensually agreed upon. Code Status History Code Status Date Activated Date Inactivated Comments Full Code 10/08/2016 9:07 AM 10/08/2016 4:23 PM Thi s order reflects the patients wishes and were consensually agreed upon. Full Code 01/20/2016 10:59 AM 01/20/2016 5:14 PM This order reflects the patients wishes and were consensually agreed upon. Full Code 05/23/2015 11:54 AM 05/23/2015 6:19 PM This order reflects the patients wishes and were consensually agreed upon. Full Code 03/29/2014 8:03 AM 03/29/2014 3:17 PM This or lamont reflects the patients wishes and were consensually agreed upon. Care Teams Customs And Immigration Officer Relationship Specialty Start Date End Date Simi Hernandez CRNP [address] [place] [address] PCP - General Nurse Practitioner 10/05/22 documented as of this encounter
--- OUTSIDE RECORDS SUMMARY | 2024-02-03 21:25 | External Medical Summary | Summary of Care ---
Author Name Unknown Organization [facility] Address [address] [place] [address] Phone [phone] Care Team Providers Care Refinery Operator Crude Unit Name Role Phone Simi Hernandez Tami BROWN Primary Care Provider Reason for Visit * Reason Onset Date Comments Appointment 01/27/2024 NO SHOW 01/27/24 Encounter Details Date Type Department Care Team (Late st Contact Info) Description 01/27/2024 Telephone Hematology/Oncology [facility] 200 [facility] [place] [address] Mana Denton CRNP 400 [place] [address] Appointment (NO SHOW 01/27/24) Allergies No known active allergiesdocumented as of this encounter (statuses as of 01/31/2024) Medications Medication Sig Dispensed Refills Start Date [...] as of this encounter (statuses as of 01/31/2024) Active Problems Problem Noted Date Diagnosed Date Dysuria 12/27/2023 Need for prophylactic vaccin ation and inoculation against influenza 10/17/2023 Protein-calorie malnutrition 07/21/2023 Pyogenic inflammation of bone 06/09/2023 Encounter for management of wound VAC 06/09/2023 Bladder dysfunction 04/05/2023 Paroxysmal A-fib 03/17/2023 Hydronephrosis 03/17/2023 HTN, goal below 140/90 01/04/2023 Dyslipidemia, goal LDL below 70 01/04/2023 Debility 11/05/2022 Coronary artery disease invo lving [place] coronary artery of [place] heart without angina pectoris 11/05/2022 Medical home patient encounter 09/30/2022 S/P shoulder replacement, right 09/07/2022 ESBL E. coli carrier 09/07/2022 Presence of intrathecal baclofen pump 09/07/2022 History of [place] (myocardial infarction) 05/12/2022 Mass of chest wall, [...] as of this encounter (statuses as of 01/31/2024) Resolved Problems Problem Noted Date Diagnosed Date [...] as of this encounter (statuses as of 01/31/2024) Immunizations Name Administration Dates Next Due COVID-19 [...] money to buy more. Never true 01/20/20 24 Within the past 12 months, t he [...] Telephone Encounter - Blanche Pearson OSA - 01/31/2024 11:53 AM EST Called x2 My g also sent regarding * Telephone Encounter - Blanche Pearson OSA [...] 02/15/2024 1:40 PM EDT Office Visit Family [address] [place] [address] Simi Hernandez CRNP [address] [place] [address] 04/10/2024 8:00 AM EDT Office Visit [facility] [address] [place] [address] Radha Boogie MD [address] [place] [address] 05/24/2024 1:40 PM EDT Office Visit Dermatology [facility] [address] [place] [address] Lisa Garcia PA-C 200 [facility] [place] [phone] 06/25/2024 3:30 PM EDT Cardiac Studies Cardiac Studies, [facility] [address] [place] [address] Scheduled Procedures Name Priority Associated Diagnoses Date/Ti [...] 07/05/2011 Depression Screening 02/10/2022 02/10/2021 COVID-19 Vaccine ( season) 2023 06/04/2022, 04/18/2022, 11/12/2021, Additional history exists Mammogram 04/15/2024 04/15/2023, 03/28, 12/17/2019, Additional history exists GFR 01/05/2025 01/05/2024, 12/2023, 10/31/2023, Additional history exists COLONOSCOPY-EVERY 5 YRS AGES 18-100 05/05/2028 05/05/2023, 05/05/2023, 11/04/2022, Additional history exists VITAMIN D LEVEL ONCE IN A LIFETIME-USE SMARTSET# [id number] Completed 01/17/2023, 04/05/2022, 04/28/2021, Additional history exists [...] and were consensually agreed upon. Care Teams Refinery Operator Crude Unit Relationship Specialty Start Date End Date Simi Hernandez CRNP [address] [place] [address] PCP - General Nurse Practitioner 10/05/22 documented as of this encounter
--- OUTSIDE RECORDS SUMMARY | 2024-02-03 21:25 | External Medical Summary | Summary of Care ---
Author Name Unknown Organization [facility] Address [address] [place] [address] Phone [phone] Care Team Providers Care Detective Captain Name Role Phone Simi Hernandez Tami BROWN Primary Care Provider Reason for Visit * Reason Onset Date Comments Appointment 01/27/2024 NO SHOW 01/27/24 Encounter Details Date Type Department Care Team (Late st Contact Info) Description 01/27/2024 Telephone Hematology/Oncology [facility] 200 [facility] [place] [place] [address] Mana Denton CRNP 400 [facility] [place] [address] Appointment (NO SHOW 01/27/24) Allergies No [...] Debility 11/05/2022 Coronary artery disease invo lving [place] coronary artery of [place] heart without angina pectoris 11/05/2022 Medical home patient encounter 09/30/2022 S/P shoulder replacement, right 09/07/2022 ESBL E. coli carrier 09/07/2022 Presence of intrathecal baclofen pump 09/07/2022 History of [place] (myocardial infarction) 05/12/2022 Mass of chest wall, [...] 02/15/2024 1:40 PM EDT Office Visit Family [address] [place] [address] Simi Hernandez CRNP [address] [place] [address] 04/10/2024 8:00 AM EDT Office Visit [facility] [address] [place] [address] Radha Boogie MD [address] [place] [address] 05/24/2024 1:40 PM EDT Office Visit Dermatology [facility] [address] [place] [address] Lisa Garcia PA-C 200 [facility] [place] [phone] 06/25/2024 3:30 PM EDT Cardiac Studies Cardiac Studies, [facility] [address] [place] [address] Scheduled Procedures Name Priority Associated Diagnoses Date/Ti [...] D LEVEL ONCE IN A LIFETIME-USE SMARTSET# [id number] Completed 01/17/2023, 04/05/2022, 04/28/2021, Additional history exists [...] and were consensually agreed upon. Care Teams Detective Captain Relationship Specialty Start Date End Date Simi Hernandez CRNP [address] [place] [address] PCP - General Nurse Practitioner 10/05/22 documented as of this encounter
--- OUTSIDE RECORDS SUMMARY | 2024-02-03 21:25 | External Medical Summary | Summary of Care ---
Author Name Unknown Organization [facility] Address [address] [place] [address] Phone [phone] Care Team Providers Care Edge Banding Off Bearer Name Role Phone Simi Hernandez Tami BROWN Primary Care Provider Reason for Visit * Reason Onset Date Comments Appointment 01/27/2024 NO SHOW 01/27/24 Encounter Details Date Type Department Care Team (Late st Contact Info) Description 01/27/2024 Telephone Hematology/Oncology [facility] 200 [facility] [place] [address] Mana Denton CRNP [address] [place] [address] Appointment (NO SHOW 01/27/24) Allergies No known active allergiesdocumented as of this encounter (statuses as of 02/02/2024) Medications Medication Sig Dispensed Refills Start Date [...] as of this encounter (statuses as of 02/02/2024) Active Problems Problem Noted Date Diagnosed Date Dysuria 12/27/2023 Need for prophylactic vaccin ation and inoculation against influenza 10/17/2023 Protein-calorie malnutrition 07/21/2023 Pyogenic inflammation of bone 06/09/2023 Encounter for management of wound VAC 06/09/2023 Bladder dysfunction 04/05/2023 Paroxysmal A-fib 03/17/2023 Hydronephrosis 03/17/2023 HTN, goal below 140/90 01/04/2023 Dyslipidemia, goal LDL below 70 01/04/2023 Debility 11/05/2022 Coronary artery disease invo lving [place] coronary artery of [place] heart without angina pectoris 11/05/2022 Medical home patient encounter 09/30/2022 S/P shoulder replacement, right 09/07/2022 ESBL E. coli carrier 09/07/2022 Presence of intrathecal baclofen pump 09/07/2022 History of [place] (myocardial infarction) 05/12/2022 Mass of chest wall, [...] as of this encounter (statuses as of 02/02/2024) Resolved Problems Problem Noted Date Diagnosed Date [...] as of this encounter (statuses as of 02/02/2024) Immunizations Name Administration Dates Next Due COVID-19 [...] Telephone Encounter - Blanche Pearson OSA - 02/02/2024 10:57 AM EST Several attempts to contact Letter sent * Telephone Encounter - Blanche Pearson OSA - 02/02/2024 8:31 AM EST Called x3 Left message for pt to return call to schedule missed appt * Telephone Encounter - Blanche Pearson OSA [...] Care Team (Late st Contact Info) Description 02/03/2024 3:00 PM EST Office Visit Hematology/Oncology [address] [place] [phone] Mana Denton CRNP 400 [facility] [place] [address] 02/15/2024 1:40 PM EDT Office Visit Family Practice [facility] 132 [facility] [place] [address] Simi Hernandez CRNP 132 [facility] [place] [address] 04/10/2024 8:00 AM EDT Office Visit [facility] 200 [facility] [address] Radha Boogie MD [address] [place] [address] [place] [address] 05/24/2024 1:40 PM EDT Office Visit Dermatology [address] [place] [address] Lisa Garcia PA-C [address] [place] [address] [place] [phone] 06/25/2024 3:30 PM EDT Cardiac Studies [facility], [facility] [place] [address] Scheduled Procedures Name Priority Associated Diagnoses Date/Ti [...] 07/05/2011 Depression Screening 02/10/2022 02/10/2021 COVID-19 Vaccine (2022- season) 2023 06/04/2022, 04/18/2022, 11/12/2021, Additional history exists Mammogram 04/15/2024 04/15/2023, 03/28, 12/17/2019, Additional history exists GFR 01/05/2025 01/05/2024, 12/2023, 10/31/2023, Additional history exists COLONOSCOPY-EVERY 5 YRS AGES 18-100 05/05/2028 05/05/2023, 05/05/2023, 11/04/2022, Additional history exists VITAMIN D LEVEL ONCE IN A LIFETIME-USE SMARTSET# [id number] Completed 01/17/2023, 04/05/2022, 04/28/2021, Additional history exists [...] and were consensually agreed upon. Care Teams Edge Banding Off Bearer Relationship Specialty Start Date End Date Simi Hernandez CRNP [address] [place] [address] PCP - General Nurse Practitioner 10/05/22 documented as of this encounter
--- OUTSIDE RECORDS SUMMARY | 2024-02-03 21:25 | External Medical Summary | Summary of Care ---
Author Name Unknown Organization [facility] Address [address] [place] [address] Phone [phone] Care Team Providers Care Senior Clinical Data Analyst Name Role Phone Simi Hernandez Tami BROWN Primary Care Provider Reason for Visit * Reason Onset Date Comments Appointment 01/27/2024 NO SHOW 01/27/24 Encounter Details Date Type Department Care Team (Late st Contact Info) Description 01/27/2024 Telephone Hematology/Oncology [facility] 200 [facility] [place] [address] Mana Denton CRNP 400 [place] [address] Appointment (NO SHOW 01/27/24) Allergies No [...] Debility 11/05/2022 Coronary artery disease invo lving [place] coronary artery of [place] heart without angina pectoris 11/05/2022 Medical home patient encounter 09/30/2022 S/P shoulder replacement, right 09/07/2022 ESBL E. coli carrier 09/07/2022 Presence of intrathecal baclofen pump 09/07/2022 History of [place] (myocardial infarction) 05/12/2022 Mass of chest wall, [...] 02/03/2024 3:00 PM EST Office Visit Hematology/Oncology [facility] 200 [place] [address] Mana Denton CRNP 400 [facility] [place] [address] 02/15/2024 1:40 PM EDT Office Visit Family Practice [facility] [address] [place] [address] Simi Hernandez CRNP 132 [facility] [place] [address] 04/10/2024 8:00 AM EDT Office Visit MOHS Surgery [facility] [address] [facility] [address] [place] [address] Radha Boogie MD 200 [facility] [place] [address] 05/24/2024 1:40 PM EDT Office Visit Dermatology [facility] 200 [place] [address] Lisa Garcia PA-C 200 [facility] [place] [address] 06/25/2024 3:30 PM EDT Cardiac Studies Cardiac Studies, [facility] 132 [facility] [place] [address] Scheduled Procedures Name Priority Associated Diagnoses Date/Ti [...] D LEVEL ONCE IN A LIFETIME-USE SMARTSET# [id number] Completed 01/17/2023, 04/05/2022, 04/28/2021, Additional history exists [...] and were consensually agreed upon. Care Teams Senior Clinical Data Analyst Relationship Specialty Start Date End Date Simi Hernandez CRNP 132 [place] [address] PCP - General Nurse Practitioner 10/05/22 documented as of this encounter
--- OUTSIDE RECORDS SUMMARY | 2024-02-03 21:25 | External Medical Summary | Summary of Care ---
Author Name Unknown Organization [facility] Address [address] [place] [address] Phone [phone] Care Team Providers Care Belt And Link Shop Supervisor Name Role Phone Simi Hernandez Tami BROWN Primary Care Provider Reason for Visit * Reason Onset Date Comments Appointment 01/27/2024 NO SHOW 01/27/24 Encounter Details Date Type Department Care Team (Late st Contact Info) Description 01/27/2024 Telephone Hematology/Oncology [facility] 200 [facility] [place] [address] Mana Denton CRNP 400 [facility] [place] [address] Appointment (NO SHOW 01/27/24) Allergies No [...] Debility 11/05/2022 Coronary artery disease invo lving [place] coronary artery of [place] heart without angina pectoris 11/05/2022 Medical home patient encounter 09/30/2022 S/P shoulder replacement, right 09/07/2022 ESBL E. coli carrier 09/07/2022 Presence of intrathecal baclofen pump 09/07/2022 History of [place] (myocardial infarction) 05/12/2022 Mass of chest wall, [...] 1:40 PM EDT Office Visit Family Practice [facility] [address] [place] [address] Simi Hernandez CRNP 132 [place] [address] 04/10/2024 8:00 AM EDT Office Visit [facility] Surgery [facility] [address] [place] [address] Radha Boogie MD 200 [facility] [place] [address] 05/24/2024 1:40 PM EDT Office Visit Dermatology [facility] 200 [facility] [place] [address] Lisa Garcia PA-C 200 [facility] [place] [phone] 06/25/2024 3:30 PM EDT Cardiac Studies Cardiac Studies, [facility] 132 [facility] [place] [address] Scheduled Procedures Name Priority Associated Diagnoses Date/Ti [...] D LEVEL ONCE IN A LIFETIME-USE SMARTSET# [id number] Completed 01/17/2023, 04/05/2022, 04/28/2021, Additional history exists [...] and were consensually agreed upon. Care Teams Belt And Link Shop Supervisor Relationship Specialty Start Date End Date Simi Hernandez CRNP [address] [place] [address] PCP - General Nurse Practitioner 10/05/22 documented as of this encounter
--- OUTSIDE RECORDS SUMMARY | 2024-02-03 21:25 | External Medical Summary | Summary of Care ---
Author Name Unknown Organization [facility] Address [address] [place] [address] Phone [phone] Care Team Providers Care Button Buttonhole Marker Name Role Phone Simi Hernandez Tami BROWN Primary Care Provider Reason for Visit * Reason Onset Date Comments Medication Refill 01/31/2024 Encounter Details Date Type Department Care Team (Late st Contact Info) Description 01/31/2024 Refill Family Practice [facility] [address] [place] [address] Navneet Alvarez MD 132 [place] [address] Allergies No known active allergiesdocumented as of [...] Debility 11/05/2022 Coronary artery disease invo lving [place] coronary artery of [place] heart without angina pectoris 11/05/2022 Medical home patient encounter 09/30/2022 S/P shoulder replacement, right 09/07/2022 ESBL E. coli carrier 09/07/2022 Presence of intrathecal baclofen pump 09/07/2022 History of [place] (myocardial infarction) 05/12/2022 Mass of chest wall, [...] patient at prior appointment. Urinary tract infection 03/21/2008 1206/2017 Urinary incontinence 03/21/2008 018 Overview: ICD-10 update [...] encounter Miscellaneous Notes * Telephone Encounter - Melanie Narayan CPhT - 01/31/2024 5:02 PM EST Called [facility]- they are filling for pt Pt calling to request prednisone. Informed pt that RX is available at their pharmacy. Pt verbalizedunderstanding and stated they will check with their pharmacy regarding this medication. Thank you, Melanie Narayan CPhT II Sales Superintendent [facility] ([facility]) (Formerly Telepharmacy) 01/31/2024, 5:04 PM documented in this encounter Plan of Treatment Upcoming Encounters Date Type Department Care Team (Late st Contact Info) Description 02/15/2024 1:40 PM EDT Office Visit Family Practice [facility] [address] [place] [address] Simi Hernandez CRNP [address] [place] [address] 04/10/2024 8:00 AM EDT Office Visit [facility] Surgery [facility] [address] [place] [address] Radha Boogie MD 200 [facility] [address] 05/24/2024 1:40 PM EDT Office Visit Dermatology [facility] 200 [facility] [place] [address] Lisa Garcia PA-C 200 [facility] [place] [phone] 06/25/2024 3:30 PM EDT Cardiac Studies Cardiac Studies, [facility] [address] [place] [address] Scheduled Procedures Name Priority Associated Diagnoses Date/Ti [...] D LEVEL ONCE IN A LIFETIME-USE SMARTSET# [id number] Completed 01/17/2023, 04/05/2022, 04/28/2021, Additional history exists [...] and were consensually agreed upon. Care Teams Button Buttonhole Marker Relationship Specialty Start Date End Date Simi Hernandez CRNP 132 [place] [address] PCP - General Nurse Practitioner 10/05/22 documented as of this encounter
[2024-02-03] MEDS: MELATONIN 3 MG TAB PO SCH (21:26)
--- OUTSIDE RECORDS SUMMARY | 2024-02-03 21:26 | External Medical Summary | Summary of Care ---
Author Name Unknown Organization [facility] Address [address] [place] [address] Phone [phone] Care Team Providers Care Critical Care Unit Nurse Name Role Phone Simi Hernandez Primary Care Provider Reason for Visit * Reason Onset Date Comments Referral 01/23/2024 Encounter Details Date Type Department Care Team (Late st Contact Info) Description 01/23/2024 Telephone Family Practice [facility] 132 [facility] [place] [address] Simi Hernandez CRNP 132 [facility] [place] [address] Referral Allergies No known active allergiesdocumented as of this encounter (statuses as of 01/26/2024) Medications Medication Sig Dispensed Refills Start Date [...] as of this encounter (statuses as of 01/26/2024) Active Problems Problem Noted Date Diagnosed Date Dysuria 12/27/2023 Need for prophylactic vaccin ation and inoculation against influenza 10/17/2023 Protein-calorie malnutrition 07/21/2023 Pyogenic inflammation of bone 06/09/2023 Encounter for management of wound VAC 06/09/2023 Bladder dysfunction 04/05/2023 Paroxysmal A-fib 03/17/2023 Hydronephrosis 03/17/2023 HTN, goal below 140/90 01/04/2023 Dyslipidemia, goal LDL below 70 01/04/2023 Debility 11/05/2022 Coronary artery disease invo lving [place] coronary artery of [place] heart without angina pectoris 11/05/2022 Medical home patient encounter 09/30/2022 S/P shoulder replacement, right 09/07/2022 ESBL E. coli carrier 09/07/2022 Presence of intrathecal baclofen pump 09/07/2022 History of [place] (myocardial infarction) 05/12/2022 Mass of chest wall, [...] as of this encounter (statuses as of 01/26/2024) Resolved Problems Problem Noted Date Diagnosed Date [...] as of this encounter (statuses as of 01/26/2024) Immunizations Name Administration Dates Next Due COVID-19 [...] encounter Miscellaneous Notes * Telephone Encounter - Dottie Bridges RN - 01/26/2024 2:44 PM EST Spoke with patient on 01.25. see CM encounter * Telephone Encounter - Dottie Bridges RN - 01/25/2024 11:35 AM EST Attempted to call Kandy, no answer, [facility] Called [facility] who still sees patient for once weekly wound care. They have not yet received ordersfrom [facility] Called and spoke with Elizabeth at [facility], she reports they had thought patient was using [facility] Notified her that patient was active with [facility] and this is where plan of treatment needs to go. Elizabeth states she will reach out to [facility] to verify, and send plan of treatment and set up to ship outpatient supplies. She reports there is nothing further needed from our office at this time. * Telephone Encounter - Dottie Bridges RN - 01/25/2024 11:26 AM EST This info was faxed. See encounter on 12/30/23. Have called and spoke with [facility] a few times regarding this. * Telephone Encounter - Kimberly Vines OSA - 01/25/2024 9:13 AM EST [facility] calling verifying orders have been sent. Relayed that they were faxed on 01/23/24 * Telephone Encounter - Dottie Bridges RN - 01/23/2024 12:59 PM EST Patient had [facility] HH, orders have been sent to [facility] to get supplies for HH nurses to do port flush while they are already seeing patient for wound care. Attempted to call patient for further clarification on message, no answer. LMTRC. * Telephone Encounter - Hannah Abernathy LPN - 01/23/2024 11:58 AM EST Do you know who does port care for HH? * Telephone Encounter - Roxana Melendrez OSA - 01/23/2024 10:21 AM EST Has the patient been seen for this problem? (Y/N)?: yes If No, an appt needs to be scheduled before a referral will be placed (exception: proceed with referral request if referral request is for a yearly routine appointment with speciality) Patient Name: Kandy Shelby Patient Primary care provider: KEVIN Mcgregor Does this need to be an insurance referral (Y/N)?: yes If Yes, does the insurance referral need to be placed into the [employer] system?yes Name of preferred specialist: home health care advantage Type of specialist: home health Location of specialist: na Specialist's Phone #: na Specialist's Fax #: na Reason for visit: port care Date of visit: na documented in this encounter Plan of Treatment Upcoming Encounters Date Type Department Care Team (Late st Contact Info) Description 01/27/2024 2:30 PM EST Office Visit Hematology/Oncology [facility] 200 [facility] [place] [phone] Mana Denton CRNP [address] [place] [address] 02/15/2024 1:40 PM EDT Office Visit Family Practice [facility] 132 [facility] [place] [address] Simi Hernandez CRNP 132 [facility] [place] [address] 04/10/2024 8:00 AM EDT Office Visit MOHS Surgery [facility] [address] [facility] [address] [place] [address] Radha Boogie MD 200 [facility] [place] [address] 05/24/2024 1:40 PM EDT Office Visit Dermatology [facility] 200 [facility] [place] [address] Lisa Garcia PA-C [address] [place] [address] [place] [phone] 06/25/2024 3:30 PM EDT Cardiac Studies Cardiac Studies, [facility] 132 [facility] [place] [address] Scheduled Procedures Name Priority Associated Diagnoses Date/Ti [...] D LEVEL ONCE IN A LIFETIME-USE SMARTSET# [id number] Completed 01/17/2023, 04/05/2022, 04/28/2021, Additional history exists [...] and were consensually agreed upon. Care Teams Critical Care Unit Nurse Relationship Specialty Start Date End Date Simi Hernandez CRNP 132 [place] [address] PCP - General Nurse Practitioner 10/05/22 documented as of this encounter
--- OUTSIDE RECORDS SUMMARY | 2024-02-03 21:26 | External Medical Summary | Summary of Care ---
Author Name Unknown Organization [facility] Address [address] [place] [address] Phone [phone] Care Team Providers Care Nat Instructor Name Role Phone Simi Hernandez Tami BROWN Primary Care Provider Reason for Visit * Reason Onset Date Comments Appointment 01/27/2024 NO SHOW 01/27/24 Encounter Details Date Type Department Care Team (Late st Contact Info) Description 01/27/2024 Telephone Hematology/Oncology [facility] 200 [facility] [place] [address] Mana Denton CRNP 400 [facility] [address] Appointment (NO SHOW 01/27/24) Allergies No known active allergiesdocumented as of this encounter (statuses as of 01/27/2024) Medications Medication Sig Dispensed Refills Start Date [...] as of this encounter (statuses as of 01/27/2024) Active Problems Problem Noted Date Diagnosed Date Dysuria 12/27/2023 Need for prophylactic vaccin ation and inoculation against influenza 10/17/2023 Protein-calorie malnutrition 07/21/2023 Pyogenic inflammation of bone 06/09/2023 Encounter for management of wound VAC 06/09/2023 Bladder dysfunction 04/05/2023 Paroxysmal A-fib 03/17/2023 Hydronephrosis 03/17/2023 HTN, goal below 140/90 01/04/2023 Dyslipidemia, goal LDL below 70 01/04/2023 Debility 11/05/2022 Coronary artery disease invo lving [place] coronary artery of [place] heart without angina pectoris 11/05/2022 Medical home patient encounter 09/30/2022 S/P shoulder replacement, right 09/07/2022 ESBL E. coli carrier 09/07/2022 Presence of intrathecal baclofen pump 09/07/2022 History of [place] (myocardial infarction) 05/12/2022 Mass of chest wall, [...] as of this encounter (statuses as of 01/27/2024) Resolved Problems Problem Noted Date Diagnosed Date [...] as of this encounter (statuses as of 01/27/2024) Immunizations Name Administration Dates Next Due COVID-19 [...] encounter Miscellaneous Notes * Telephone Encounter - Jacquelyn Hinojosa LPN - 01/27/2024 2:50 PM EST Patient is a NO SHOW 01/27/24 KEVIN Barnes schedule Please contact patient to reschedule missed appt documented in this encounter Plan of Treatment Upcoming Encounters Date Type Department Care Team (Late st Contact Info) Description 02/15/2024 1:40 PM EDT Office Visit Family [facility] 132 [facility] [place] [address] Simi Hernandez CRNP [address] [place] [address] 04/10/2024 8:00 AM EDT Office Visit MOHS Surgery [facility] [address] [facility] [place] [address] Radha Boogie MD [address] [facility] [place] [address] 05/24/2024 1:40 PM EDT Office Visit Dermatology [facility] [address] [place] [address] Lisa Garcia PA-C [address] [place] [address] 06/25/2024 3:30 PM EDT Cardiac Studies Cardiac Studies, [facility] [address] [place] [address] Scheduled Procedures Name Priority [...] D LEVEL ONCE IN A LIFETIME-USE SMARTSET# [id number] Completed 01/17/2023, 04/05/2022, 04/28/2021, Additional history exists [...] and were consensually agreed upon. Care Teams Nat Instructor Relationship Specialty Start Date End Date Simi Hernandez CRNP 132 [place] [address] PCP - General Nurse Practitioner 10/05/22 documented as of this encounter
--- OUTSIDE RECORDS SUMMARY | 2024-02-03 21:26 | External Medical Summary | Summary of Care ---
Author Name Unknown Organization [facility] Address [address] [place] [address] Phone [phone] Care Team Providers Care Patient Access Representative Name Role Phone Simi Hernandez Primary Care Provider Reason for Visit * Reason Onset Date Comments Fax 01/25/2024 Referral 01/25/2024 Encounter Details Date Type Department Care Team (Late st Contact Info) Description 01/25/2024 Telephone Family Practice [facility] [address] [place] [address] Simi Hernandez CRNP [address] [place] [address] Fax; Referral Allergies No known active allergiesdocumented as [...] Debility 11/05/2022 Coronary artery disease invo lving [place] coronary artery of [place] heart without angina pectoris 11/05/2022 Medical home patient encounter 09/30/2022 S/P shoulder replacement, right 09/07/2022 ESBL E. coli carrier 09/07/2022 Presence of intrathecal baclofen pump 09/07/2022 History of [place] (myocardial infarction) 05/12/2022 Mass of chest wall, [...] Encounter - Dottie Bridges RN - 01/25/2024 11:44 AM EST See CM encounter regarding this. Patient is active with [facility] home health. This is where orders are to go. Orders were faxed at the beginning of December * Telephone Encounter - Amisha Whitfield OSA - 01/25/2024 9:16 AM EST The referral that was sent to nursing agency was faxed to the wrong place the correct fax number is [phone] documented in this encounter Plan of Treatment Upcoming Encounters Date Type Department Care Team (Late st Contact Info) Description 01/27/2024 2:30 PM EST Office Visit Hematology/Oncology [facility] [place] [address] [place] [address] Mana Denton CRNP [address] [place] [address] 02/15/2024 1:40 PM EDT Office Visit Family Practice [facility] [address] [place] [address] Simi Hernandez CRNP [address] [place] [address] 04/10/2024 8:00 AM EDT Office Visit MOHS Surgery [facility] [address] [place] [address] Radha Boogie MD 200 [facility] [place] [address] 05/24/2024 1:40 PM EDT Office Visit Dermatology [facility] [address] [place] [address] Lisa Garcia PA-C 200 [facility] [place] [phone] 06/25/2024 3:30 PM EDT Cardiac Studies Cardiac Studies, [facility] [address] [place] [address] Scheduled Procedures Name Priority Associated Diagnoses Date/Ti [...] D LEVEL ONCE IN A LIFETIME-USE SMARTSET# [id number] Completed 01/17/2023, 04/05/2022, 04/28/2021, Additional history exists [...] and were consensually agreed upon. Care Teams Patient Access Representative Relationship Specialty Start Date End Date Simi Hernandez CRNP 132 [place] [address] PCP - General Nurse Practitioner 10/05/22 documented as of this encounter
--- OUTSIDE RECORDS SUMMARY | 2024-02-03 21:26 | External Medical Summary | Summary of Care ---
Author Name Unknown Organization [facility] Address [address] [place] [address] Phone [phone] Care Team Providers Care Environmental Engineering Manager Name Role Phone Simi Hernandez Primary Care Provider Reason for Visit * Reason Onset Date Comments Fax 01/25/2024 Referral 01/25/2024 Encounter Details Date Type Department Care Team (Late st Contact Info) Description 01/25/2024 Telephone Family Practice [facility] [address] [place] [address] Simi Hernandez CRNP [address] [place] [address] Fax; Referral Allergies No known active allergiesdocumented [...] Debility 11/05/2022 Coronary artery disease invo lving [place] coronary artery of [place] heart without angina pectoris 11/05/2022 Medical home patient encounter 09/30/2022 S/P shoulder replacement, right 09/07/2022 ESBL E. coli carrier 09/07/2022 Presence of intrathecal baclofen pump 09/07/2022 History of [place] (myocardial infarction) 05/12/2022 Mass of chest wall, [...] encounter regarding this. Patient is active with [facility] home health. This is where orders are to go. Orders were faxed at the beginning of December * Telephone Encounter - Amisha Whitfield OSA - 01/25/2024 9:16 AM EST The referral that was sent to nursing agency was faxed to the wrong place the correct fax number is [phone] documented in this encounter Plan of Treatment Upcoming Encounters Date Type Department Care Team (Late st Contact Info) Description 01/27/2024 2:30 PM EST Office Visit Hematology/Oncology [facility] [place] [address] [place] [address] Mana Denton CRNP [address] [place] [address] 02/15/2024 1:40 PM EDT Office Visit Family Practice [facility] [address] [place] [address] Simi Hernandez CRNP [address] [place] [address] 04/10/2024 8:00 AM EDT Office Visit MOHS Surgery [facility] [address] [place] [address] Radha Boogie MD 200 [facility] [place] [address] 05/24/2024 1:40 PM EDT Office Visit Dermatology [facility] [address] [place] [address] Lisa Garcia PA-C 200 [facility] [place] [phone] 06/25/2024 3:30 PM EDT Cardiac Studies Cardiac Studies, [facility] [address] [place] [address] Scheduled Procedures Name Priority Associated Diagnoses Date/Ti [...] D LEVEL ONCE IN A LIFETIME-USE SMARTSET# [id number] Completed 01/17/2023, 04/05/2022, 04/28/2021, Additional history exists [...] and were consensually agreed upon. Care Teams Environmental Engineering Manager Relationship Specialty Start Date End Date Simi Hernandez CRNP 132 [place] [address] PCP - General Nurse Practitioner 10/05/22 documented as of this encounter
--- OUTSIDE RECORDS SUMMARY | 2024-02-03 21:26 | External Medical Summary | Summary of Care ---
Author Name Unknown Organization [facility] Address [address] [place] [address] Phone [phone] Care Team Providers Care Study Coordinator Name Role Phone Simi Hernandez Primary Care Provider Reason for Visit * Reason Onset Date Comments Fax 01/25/2024 Referral 01/25/2024 Encounter Details Date Type Department Care Team (Late st Contact Info) Description 01/25/2024 Telephone Family Practice [facility] [address] [place] [address] Simi Hernandez CRNP [address] [place] [address] Fax; Referral Allergies No known active allergiesdocumented as of this encounter (statuses as of 01/25/2024) Medications Medication Sig Dispensed Refills Start Date [...] as of this encounter (statuses as of 01/25/2024) Active Problems Problem Noted Date Diagnosed Date Dysuria 12/27/2023 Need for prophylactic vaccin ation and inoculation against influenza 10/17/2023 Protein-calorie malnutrition 07/21/2023 Pyogenic inflammation of bone 06/09/2023 Encounter for management of wound VAC 06/09/2023 Bladder dysfunction 04/05/2023 Paroxysmal A-fib 03/17/2023 Hydronephrosis 03/17/2023 HTN, goal below 140/90 01/04/2023 Dyslipidemia, goal LDL below 70 01/04/2023 Debility 11/05/2022 Coronary artery disease invo lving [place] coronary artery of [place] heart without angina pectoris 11/05/2022 Medical home [...] as of this encounter (statuses as of 01/25/2024) Resolved Problems Problem Noted Date Diagnosed Date [...] as of this encounter (statuses as of 01/25/2024) Immunizations Name Administration Dates Next Due COVID-19 [...] encounter regarding this. Patient is active with [facility] home health. This is where orders are to go. Orders were faxed at the beginning of December * Telephone Encounter - Amisha Whitfield OSA - 01/25/2024 9:16 AM EST The referral that was sent to nursing agency was faxed to the wrong place the correct fax number is [phone] documented in this encounter Plan of Treatment Upcoming Encounters Date Type Department Care Team (Late st Contact Info) Description 01/27/2024 2:30 PM EST Office Visit Hematology/Oncology [facility] [place] [address] [place] [address] Mana Denton CRNP [address] [place] [address] 02/15/2024 1:40 PM EDT Office Visit Family Practice [facility] [address] [place] [address] Simi Hernandez CRNP [address] [place] [address] 04/10/2024 8:00 AM EDT Office Visit MOHS Surgery [facility] [address] [place] [address] Radha Boogie MD 200 [facility] [place] [address] 05/24/2024 1:40 PM EDT Office Visit Dermatology [facility] [address] [place] [address] Lisa Garcia PA-C 200 [facility] [place] [phone] 06/25/2024 3:30 PM EDT Cardiac Studies Cardiac Studies, [facility] [address] [place] [address] Scheduled Procedures Name Priority Associated Diagnoses Date/Ti [...] D LEVEL ONCE IN A LIFETIME-USE SMARTSET# [id number] Completed 01/17/2023, 04/05/2022, 04/28/2021, Additional history exists [...] Code 01/20/2016 10:59 AM 01/20/2016 5:14 PM Thi s order reflects the patients wishes and were consensually agreed upon. Full Code 05/23/2015 11:54 AM 05/23/2015 6:19 PM Thi s order reflects the patients wishes and were consensually agreed upon. Full Code 03/29/2014 8:03 AM 03/29/2014 3:17 PM This or lamont reflects the patients wishes and were consensually agreed upon. Care Teams Study Coordinator Relationship Specialty Start Date End Date Simi Hernandez CRNP [address] [place] [address] PCP - General Nurse Practitioner 10/05/22 documented as of this encounter
--- OUTSIDE RECORDS SUMMARY | 2024-02-03 21:26 | External Medical Summary | Summary of Care ---
Author Name Unknown Organization [facility] Address [address] [place] [address] Phone [phone] Care Team Providers Care Obstetric Assistant Name Role Phone Simi Hernandez Primary Care Provider Reason for Referral * Precert (Within 10 days (routine)) - Authorized Specialty Diagnoses / Procedures Referred By Kenya soliz Referred To Contact Radiology Diagnoses Multiple sclerosis (HCC) Procedures MRI T SPINE W WO CONTRAST Simi Hernandez CRNP [address] [place] [address] Referral ID Status Reason Start Date Expiration Date V isits Requested Visits Authorized [id number] Authorized 01/26/2024 999 999 * Precert (Within 10 days (routine)) - Authorized Specialty Diagnoses / Procedures Referred By Kenya soliz Referred To Contact Radiology Diagnoses Multiple sclerosis (HCC) Procedures MRI C SPINE W WO CONTRAST Simi Hernandez CRNP [address] [place] [address] Referral ID Status Reason Start Date Expiration Date V isits Requested Visits Authorized [id number] Authorized 01/26/2024 999 999 * Precert (Within 10 days (routine)) - Authorized Specialty Diagnoses / Procedures Referred By Kenya soliz Referred To Contact Radiology Diagnoses Multiple sclerosis (HCC) Procedures MRI BRAIN W WO CONTRAST Simi Hernandez CRNP [address] [place] [address] Referral ID Status Reason Start Date Expiration Date V isits Requested Visits Authorized [id number] Authorized 01/26/2024 999 999 Reason for Visit * Reason Onset Date Comments Advice 01/25/2024 Order Request 01/25/2024 Encounter Details Date Type Department Care Team (Late st Contact Info) Description 01/25/2024 Telephone Family Practice [facility] [address] [place] [address] Simi Hernandez CRNP [address] [place] [address] Advice; Order Request Allergies No known active allergiesdocumented as of [...] Debility 11/05/2022 Coronary artery disease invo lving [place] coronary artery of [place] heart without angina pectoris 11/05/2022 Medical home patient encounter 09/30/2022 S/P shoulder replacement, right 09/07/2022 ESBL E. coli carrier 09/07/2022 Presence of intrathecal baclofen pump 09/07/2022 History of [place] (myocardial infarction) 05/12/2022 Mass of chest wall, [...] encounter Miscellaneous Notes * Telephone Encounter - Laverne Hinojosa OSA - 01/27/2024 9:16 AM EST LM via that referrals were faxed and she can call to schedule at [phone] * Telephone Encounter - Laverne Hinojosa OSA - 01/27/2024 7:51 AM EST Orders faxed, will wait and call pt later this morning * Telephone Encounter - Simi Hernandez CRNP - 01/26/2024 3:37 PM EST ORDERED FOR PATIENT- PLEASE FAX TO [facility] and notify patient. Kirstin, ADELSO, KEVIN [facility] * Telephone Encounter - Gianna Roca LPN - 01/26/2024 12:51 PM EST Order from Dr Bang obtained and given to David * Telephone Encounter - Gianna Roca LPN - 01/26/2024 11:51 AM EST Called [phone] - Dr Ko Bang and requested the order be faxed to our office. Once obtained will need to see if David will order. * Telephone Encounter - Dulce Altamirano OSA - 01/25/2024 3:58 PM EST Patient called about Mri orders that she is to have done at [facility]. Her neurologist's phone number is [phone] - Dr Ko Bang. [facility] has the orders he wrote for her MRIs and are telling her they cannot do the scans because her neurologist is from [place]. She has these scans done every year at [facility], but they will not accept her doctor's order this time. Patient is asking if Simi Hernandez would consider writing the orders for the MRIs for the patient andto have results also go to the neurologist. She does not have the details on the orders except theywere Brain, and two parts of her spine. She provided the neurologist's information if the office wanted to call to talk to his office. Please call patient regarding this. Thank you. documented in this encounter Plan of Treatment Upcoming Encounters Date Type Department Care Team (Late st Contact Info) Description 01/27/2024 2:30 PM EST Office Visit Hematology/Oncology [facility] 200 [place] [phone] Mana Denton CRNP [address] [place] [address] 02/15/2024 1:40 PM EDT Office Visit Family [facility] [address] [place] [address] Simi Hernandez CRNP [address] [place] [address] 04/10/2024 8:00 AM EDT Office Visit MOHS Surgery [facility] 200 [facility] [place] [address] Radha Boogie MD 200 [place] [address] 05/24/2024 1:40 PM EDT Office Visit Dermatology [facility] 200 [place] [address] Lisa Garcia PA-C [address] [facility] [place] [phone] 06/25/2024 3:30 PM EDT Cardiac Studies Cardiac Studies, [facility] 132 [facility] [place] [address] Scheduled Orders Name Type Priority Associated Diagnoses Orde r Schedule MRI BRAIN W WO CONTRAST Medical Imaging Routine Multiple sclerosis (HCC) Expected: 01/26/2024, Expires: 02/23/2025 MRI C SPINE W WO CONTRAST Medical Imaging Routine Multiple sclerosis (HCC) Expected: 01/26/2024, Expires: 02/23/2025 MRI T SPINE W WO CONTRAST Medical Imaging Routine Multiple sclerosis (HCC) Expected: 01/26/2024, Expires: 02/23/2025 Scheduled Procedures Name Priority Associated Diagnoses Date/Ti [...] Depression Screening 02/10/2022 02/10/2021 COVID-19 Vaccine ( - 2022- season) 2023 06/04/2022, 04/18/2022, 11/12/2021, Additional history exists Mammogram 04/15/2024 04/15/2023, 03/28, 12/17/2019, Additional history exists GFR 01/05/2025 01/05/2024, 12/2023, 10/31/2023, Additional history exists COLONOSCOPY-EVERY 5 YRS AGES 18-100 05/05/2028 05/05/2023, 05/05/2023, 11/04/2022, Additional history exists VITAMIN D LEVEL ONCE IN A LIFETIME-USE SMARTSET# [id number] Completed 01/17/2023, 04/05/2022, 04/28/2021, Additional history exists [...] Not on filedocumented as of this encounter Visit Diagnoses Diagnosis Multiple sclerosis (HCC)- Primary Multiple sclerosis documented in this encounter Advance Directives Latest Code Status [...] and were consensually agreed upon. Care Teams Obstetric Assistant Relationship Specialty Start Date End Date Simi Hernandez CRNP [address] [place] [address] PCP - General Nurse Practitioner 10/05/22 documented as of this encounter
--- OUTSIDE RECORDS SUMMARY | 2024-02-03 21:26 | External Medical Summary | Summary of Care ---
Author Name Unknown Organization [facility] Address [address] [place] [address] Phone [phone] Care Team Providers Care Accordion Maker Name Role Phone Simi Hernandez Primary Care Provider Reason for Visit * Reason Onset Date Comments Referral 01/23/2024 Encounter Details Date Type Department Care Team (Late st Contact Info) Description 01/23/2024 Telephone Family Practice [facility] 132 [facility] [place] [address] Simi Hernandez CRNP 132 [facility] [place] [address] Referral Allergies No known active allergiesdocumented as [...] Debility 11/05/2022 Coronary artery disease invo lving [place] coronary artery of [place] heart without angina pectoris 11/05/2022 Medical home patient encounter 09/30/2022 S/P shoulder replacement, right 09/07/2022 ESBL E. coli carrier 09/07/2022 Presence of intrathecal baclofen pump 09/07/2022 History of [place] (myocardial infarction) 05/12/2022 Mass of chest wall, [...] EST Attempted to call Kandy, no answer, [facility] Called [facility] who still sees patient for once weekly wound care. They have not yet received ordersfrom [facility] Called and spoke with Elizabeth at [facility], she reports they had thought patient was using [facility]. Notified her that patient was active with [facility] and this is where plan of treatment needs to go. Elizabeth states she will reach out to [facility] to verify, and send plan of [...] - 01/23/2024 12:59 PM EST Patient had [facility] HH, [facility] been [facility] get supplies for HH nurses to [...] referral need to be placed into the [employer] system?yes Name of preferred specialist: home health care advantage Type of specialist: home health Location of specialist: na Specialist's Phone #: na Specialist's Fax #: na Reason for visit: port care Date of visit: na documented in this encounter Plan of Treatment Upcoming Encounters Date Type Department Care Team (Late st Contact Info) Description 01/27/2024 2:30 PM EST Office Visit Hematology/Oncology [facility] 200 [facility] [place] [phone] Mana Denton CRNP [address] [place] [address] 02/15/2024 1:40 PM EDT Office Visit Family Practice [facility] [place] [address] Simi Hernandez CRNP 132 [facility] [place] [address] 04/10/2024 8:00 AM EDT Office Visit MOHS Surgery [facility] [address] [facility] [address] [place] [address] Radha Boogie MD 200 [facility] [place] [address] 05/24/2024 1:40 PM EDT Office Visit Dermatology [facility] 200 [facility] [place] [address] Lisa Garcia PA-C [address] [place] [address] [place] [phone] 06/25/2024 3:30 PM EDT Cardiac Studies Cardiac Studies, [facility] 132 [facility] [place] [address] Scheduled Procedures Name Priority Associated Diagnoses Date/Ti [...] D LEVEL ONCE IN A LIFETIME-USE SMARTSET# [id number] Completed 01/17/2023, 04/05/2022, 04/28/2021, Additional history exists [...] and were consensually agreed upon. Care Teams Accordion Maker Relationship Specialty Start Date End Date Simi Hernandez CRNP [address] [place] [address] PCP - General Nurse Practitioner 10/05/22 documented as of this encounter
--- OUTSIDE RECORDS SUMMARY | 2024-02-03 21:26 | External Medical Summary | Summary of Care ---
Author Name Unknown Organization [facility] Address [address] [place] [address] Phone [phone] Care Team Providers Care Shingle Catcher Name Role Phone Simi Hernandez Primary Care Provider Reason for Visit * Reason Onset Date Comments Fax 01/25/2024 Referral 01/25/2024 Encounter Details Date Type Department Care Team (Late st Contact Info) Description 01/25/2024 Telephone Family Practice [facility] [address] [place] [address] Simi Hernandez CRNP [address] [place] [address] Fax; Referral Allergies No known active allergiesdocumented [...] Debility 11/05/2022 Coronary artery disease invo lving [place] coronary artery of [place] heart without angina pectoris 11/05/2022 Medical home patient encounter 09/30/2022 S/P shoulder replacement, right 09/07/2022 ESBL E. coli carrier 09/07/2022 Presence of intrathecal baclofen pump 09/07/2022 History of [place] (myocardial infarction) 05/12/2022 Mass of chest wall, [...] encounter regarding this. Patient is active with [facility] home health. This is where orders are to go. Orders were faxed at the beginning of December * Telephone Encounter - Amisha Whitfield OSA - 01/25/2024 9:16 AM EST The referral that was sent to nursing agency was faxed to the wrong place the correct fax number is [phone] documented in this encounter Plan of Treatment Upcoming Encounters Date Type Department Care Team (Late st Contact Info) Description 01/27/2024 2:30 PM EST Office Visit Hematology/Oncology [facility] [place] [address] [place] [phone] Mana Denton CRNP [address] [place] [address] 02/15/2024 1:40 PM EDT Office Visit Family Practice [facility] [address] [place] [address] Simi Hernandez CRNP [address] [place] [address] 04/10/2024 8:00 AM EDT Office Visit MOHS Surgery [facility] [address] [place] [address] Radha Boogie MD 200 [facility] [place] [address] 05/24/2024 1:40 PM EDT Office Visit Dermatology [facility] [address] [place] [address] Lisa Garcia PA-C 200 [facility] [place] [phone] 06/25/2024 3:30 PM EDT Cardiac Studies Cardiac Studies, [facility] [address] [place] [address] Scheduled Procedures Name Priority Associated Diagnoses Date/Ti [...] D LEVEL ONCE IN A LIFETIME-USE SMARTSET# [id number] Completed 01/17/2023, 04/05/2022, 04/28/2021, Additional history exists [...] and were consensually agreed upon. Care Teams Shingle Catcher Relationship Specialty Start Date End Date Simi Hernandez CRNP [address] [place] [address] PCP - General Nurse Practitioner 10/05/22 documented as of this encounter
[2024-02-03] MEDS: APIXABAN 5 MG TABLET PO SCH (21:27)
--- OUTSIDE RECORDS SUMMARY | 2024-02-03 21:27 | External Medical Summary | Summary of Care ---
Author Name Unknown Organization [facility] Address [address] [place] [address] Phone [phone] Care Team Providers Care Audio Visual Coordinator Name Role Phone Simi Hernandez Primary Care Provider Encounter Details Date Type Department Care Team (Late st Contact Info) Description 01/16/2024 Telephone Family Practice [facility] [place] [address] Simi Hernandez CRNP 132 [facility] [place] [address] Allergies No known active allergiesdocumented as of this encounter (statuses as of 01/17/2024) Medications Medication Sig Dispensed Refills Start Date [...] as of this encounter (statuses as of 01/17/2024) Active Problems Problem Noted Date Diagnosed Date Dysuria 12/27/2023 Need for prophylactic vaccin ation and inoculation against influenza 10/17/2023 Protein-calorie malnutrition 07/21/2023 Pyogenic inflammation of bone 06/09/2023 Encounter for management of wound VAC 06/09/2023 Bladder dysfunction 04/05/2023 Paroxysmal A-fib 03/17/2023 Hydronephrosis 03/17/2023 HTN, goal below 140/90 01/04/2023 Dyslipidemia, goal LDL below 70 01/04/2023 Debility 11/05/2022 Coronary artery disease invo lving [place] coronary artery of [place] heart without angina pectoris 11/05/2022 Medical home patient encounter 09/30/2022 S/P shoulder replacement, right 09/07/2022 ESBL E. coli carrier 09/07/2022 Presence of intrathecal baclofen pump 09/07/2022 History of [place] (myocardial infarction) 05/12/2022 Mass of chest wall, [...] as of this encounter (statuses as of 01/17/2024) Resolved Problems Problem Noted Date Diagnosed Date [...] at prior appointment. Urinary tract infection 03/21/2008 12/06/2017 Urinary incontinence 03/21/2008 018 Overview: ICD-10 update of inactive term Overflow incontinence 03/21/20082016 Osteoporosis 07/26/2007 05/05/2020 Breast neoplasm 09/10/2004 12/19/2018 Overview: ICD-10 update of inactive term Incomplete bladder emptying 06/25/2003 08/13/2019 intradermal nevus, left naso labial fold-1.13.03 01/10/2003 12/28/2016 Lump or mass in breast 10/03/200009/10 documented as of this encounter (statuses as of 01/17/2024) Immunizations Name Administration Dates Next Due COVID-19 mRNA, LNP-s, No Pre serve, 2-Dose Series (Client Outlook) 04/18/2022,11/12/2021,01/28/2021,01/14 PPD 06/05/2018 Pneumococcal Conjugate Vacc, 13 [...] the money to buy more. Never true 07/21/20 23 Within the past 12 months, t he food you bought just didn't last and you didn't have money to get more. Never true 07/21/2023 Sex and Gender Information Value Date Recorded Sex Assigned at Female 02/07/2020 1:52 PM EDT Gender Identity Female 02/07/2020 1:52 PM EDT Sexual Orientation Straight 02/07/2020 1: 52 PM EDT Job Start Date Occupation Industry Not on file Not on file Not on file documented as of this encounter Miscellaneous Notes * Telephone Encounter - Evelyn Dickerson LPN - 01/16/2024 1:57 PM EST Pt returning call, message read and pt verbalized understanding * Telephone Encounter - Gianna Roca LPN - 01/16/2024 11:52 AM EST Called pt and left vm message to call the office about lab results. * Telephone Encounter - Simi Hernandez CRNP - 01/16/2024 8:22 AM EST Please call patient with unread my volodymyr Fulton, MSN, KEVIN [facility] documented in this encounter Plan of Treatment Upcoming Encounters Date Type Department Care Team (Late st Contact Info) Description 01/27/2024 2:30 PM EST Office Visit Hematology/Oncology [facility] [place] 200 [facility] [place], [place] [address] Mana Denton CRNP [address] [place] [address] 02/15/2024 1:40 PM EDT Office Visit Family Practice [facility] 132 [facility] [place] [address] Simi Hernandez CRNP 132 [facility] [place] [address] 04/10/2024 8:00 AM EDT Office Visit [facility] [address] Rad[facility] 200 [facility] [address] 05/24/2024 1:40 PM EDT Office Visit Dermatology [facility] 200 [facility] [place] [address] Lisa Garcia PA-C 200 [facility] [place] [phone] 06/25/2024 3:30 PM EDT Cardiac Studies Cardiac Studies, [facility] 132 [facility] [place] [address] Scheduled Procedures Name Priority Associated Diagnoses Date/Ti [...] 07/05/2011 Depression Screening 02/10/2022 02/10/2021 COVID-19 Vaccine (5 - 2023-24 season) 2023 06/04/2022, 04/18/2022, 11/12/2021, Additional history exists Mammogram 04/15/2024 04/15/2023, 03/28, 12/17/2019, Additional history exists GFR 01/05/2025 01/05/2024, 12/2023, 10/31/2023, Additional history exists COLONOSCOPY-EVERY 5 YRS AGES 18-100 05/05/2028 05/05/2023, 05/05/2023, 11/04/2022, Additional history exists VITAMIN D LEVEL ONCE IN A LIFETIME-USE SMARTSET# [id number] Completed 01/17/2023, 04/05/2022, 04/28/2021, Additional history exists [...] and were consensually agreed upon. Care Teams Audio Visual Coordinator Relationship Specialty Start Date End Date Simi Hernandez CRNP 132 [place] [address] PCP - General Nurse Practitioner 10/05/22 documented as of this encounter
--- OUTSIDE RECORDS SUMMARY | 2024-02-03 21:27 | External Medical Summary | Summary of Care ---
Author Name Unknown Organization [facility] Address [address] [place] [address] Phone [phone] Care Team Providers Care Tube Sorter Name Role Phone Simi Hernandez Primary Care Provider Reason for Visit * Reason Onset Date Comments Test Results 12/30/2023 Encounter Details Date Type Department Care Team (Late st Contact Info) Description 12/30/2023 Telephone Family Practice [facility] 132 [facility] [place] [address] Simi Hernandez CRNP 132 [facility] [place] [address] Test Results Allergies No known active allergiesdocumented as of this encounter (statuses as of 01/16/2024) Medications Medication Sig Dispensed Refills Start Date End Date Status VITAMIN D 1000 UNITS PO CAPSIndications:Ost eoporosis One capsule daily 30 Cap 5 3 Active Aubagio 14 MG Oral Tablet Take 1 Tablet by mouth in the morning. Takes at night. 0 Active Transdermal Pain Base External Cream Apply to feet daily as needed. 500 g 2 0 Active Additional Information Patient not taking.Reported on 11/08/2023 Acetaminophen 500 MG Oral Tablet Take 1 Tablet by mouth every 6 hours as needed. 0 Active Melatonin 3 MG Oral Tablet Disintegrating Take by mouth 3 mg every night at bedtime . 30 Tablet 0 2 Active Multivitamin Adult Oral Tablet Take by mouth 1 Tablet daily . 30 Tablet 0 2 Active Aspirin EC 81 MG Oral Tablet Delayed Release Take 1 Tablet by mouth in the morning. 0 3 Active Additional Information Patient not taking.Reported on 09/06/2023 Atorvastatin Calcium 20 MG Oral Tablet (Lipitor) TAKE 1 TABLET BY MOUTH ONCE DAILY IN THE MORNING 90 Tablet 2 3 Active Azelaic Acid 15 % External Gel (Finacea)Indication s:Rosacea Apply to face twice daily as needed 50 g 1 3 Active Eliquis 5 MG Oral Tablet Take 1 tablet by mouth twice daily 60 Tablet 5 3 Active Oxybutynin Chloride ER 15 MG Oral Tablet Extended Release 24 Hour (Ditropan XL)Indications:Neur ogenic bladder TAKE 1 TABLET BY MOUTH IN THE MORNING 90 Tablet 1 3 Active Doxycycline Hyclate 100 MG Oral Tablet Delayed Release Take 1 Tablet by mouth in the morning and 1 Tablet before bedtime. 0 Active LUCITA Knee Brace Medium Please eval and fit for bilateral knee brace as recommended by physical therapy. 2 Each 0 3 Active tiZANidine HCl 4 MG Oral Tablet (Zanaflex) Take 1 Tablet by mouth every 6 hours as needed for Muscle spasms. 360 Tablet 0 3 Active Omeprazole 40 MG Oral Capsule Delayed Release (PriLOSEC) Take 1 Capsule by mouth in the morning. 30 Capsule 3 3 Active Magnesium Oxide 400 240 MG Oral Packet (Magnesium Oxide) 400 mg in the morning and 400 mg before bedtime. 0 3 Active predniSONE 10 MG Oral Tablet (Deltasone)Indicati ons:Multiple sclerosis (HCC) Take 1 tablet by mouth once daily 90 Tablet 1 3 Active Escitalopram Oxalate 20 MG Oral Tablet (Lexapro) Take 1 tablet by mouth once daily 90 Tablet 3 3 Active Doxycycline Hyclate 50 MG Oral Capsule (Vibramycin)Indicat ions:Rosacea TAKE 1 CAPSULE BY MOUTH EVERY OTHER DAY 45 Capsule 0 3 Active Metoprolol Tartrate 25 MG Oral Tablet (Lopressor) Take 1 tablet by mouth twice daily 180 Tablet 1 4 Active MEDICAL INSTRUCTIONS Use as directed Every Month for 1 day. Home health nurse to flush port with 10 ml of NS, flush with 500 units of heparin (100 unit/ml) 1 Each 1 4 12/30/19 24 Nitrofurantoin Monohyd Macro 100 MG Oral Capsule (Macrobid) Take 1 Capsule by mouth in the morning and 1 Capsule before bedtime. Do all this for 10 days. With food until gone. 20 Capsule 0 4 01/02/20 24 Discontinued Sulfamethoxazole-Tr imethoprim 800-160 MG Oral Tablet (Bactrim DS) Take 1 Tablet by mouth in the morning and 1 Tablet before bedtime. Do all this for 7 days. Until gone.. 14 Tablet 0 4 01/09/20 24 documented as of this encounter (statuses as of 01/16/2024) Active Problems Problem Noted Date Diagnosed Date Dysuria 12/27/2023 Need for prophylactic vaccin ation and inoculation against influenza 10/17/2023 Protein-calorie malnutrition 07/21/2023 Pyogenic inflammation of bone 06/09/2023 Encounter for management of wound VAC 06/09/2023 Bladder dysfunction 04/05/2023 Paroxysmal A-fib 03/17/2023 Hydronephrosis 03/17/2023 HTN, goal below 140/90 01/04/2023 Dyslipidemia, goal LDL below 70 01/04/2023 Debility 11/05/2022 Coronary artery disease invo lving [place] coronary artery of [place] heart without angina pectoris 11/05/2022 Medical home patient encounter 09/30/2022 S/P shoulder replacement, right 09/07/2022 ESBL E. coli carrier 09/07/2022 Presence of intrathecal baclofen pump 09/07/2022 History of [place] (myocardial infarction) 05/12/2022 Mass of chest wall, [...] as of this encounter (statuses as of 01/16/2024) Resolved Problems Problem Noted Date Diagnosed Date [...] as of this encounter (statuses as of 01/16/2024) Immunizations Name Administration Dates Next Due COVID-19 mRNA, LNP-s, No Pre serve, 2-Dose Series (Wheebox) 04/18/2022,11/12/2021,01/28/2021,01/14 PPD 06/05/2018 Pneumococcal Conjugate Vacc, 13 [...] encounter Miscellaneous Notes * Telephone Encounter - Marilu Stovall LPN - 01/04/2024 3:17 PM EST Patient returned call. Informed of message. Verbalized understanding. * Telephone Encounter - Yolette-Evelyn Melendrez LPN - 01/03/2024 10:37 AM EST Called pt, let message for a return call * Telephone Encounter - Simi Hernandez CRNP - 01/02/2024 2:37 PM EST Yes please change to bactrim. I sent in. If she picked up macrobid please have her stop that. * Telephone Encounter - Hannah Abernathy LPN - 01/02/2024 12:26 PM EST Final culture result in. Do you need to change abx? This med is resistant to one of the bacteria I think? * Telephone Encounter - Simi Hernandez CRNP - 12/30/2023 7:36 PM EST Please notify patient Culture grew bacteria- I sent in the medication to cover but waiting on final cutlure. Kirstin, MSN, KEVIN [facility] Medicine documented in this encounter Plan of Treatment Upcoming Encounters Date Type Department Care Team (Late st Contact Info) Description 01/27/2024 2:30 PM EST Office Visit [facility]ology[facility]On[facility] [address] Mana Denton CRNP [address] [place] [address] 02/15/2024 1:40 PM EDT Office Visit Family Practice [facility] [address] [place] [address] Simi Hernandez CRNP [address] [place] [address] 04/10/2024 8:00 AM EDT Office Visit MOHS Surgery [facility] [address] [place] [address] Radha Boogie MD 200 [facility] [place] [address] 05/24/2024 1:40 PM EDT Office Visit Dermatology [facility] [address] [facility] [place] [address] Lisa Garcia PA-C 200 [facility] [place] [phone] 06/25/2024 3:30 PM EDT Cardiac Studies Cardiac Studies, [facility] [address] [place] [address] Scheduled Procedures Name Priority Associated Diagnoses Date/Ti [...] D LEVEL ONCE IN A LIFETIME-USE SMARTSET# [id number] Completed 01/17/2023, 04/05/2022, 04/28/2021, Additional history exists [...] and were consensually agreed upon. Care Teams Tube Sorter Relationship Specialty Start Date End Date Simi Hernandez CRNP [address] [place] [address] PCP - General Nurse Practitioner 10/05/22 documented as of this encounter
--- OUTSIDE RECORDS SUMMARY | 2024-02-03 21:27 | External Medical Summary | Summary of Care ---
Author Name Unknown Organization [facility] Address [address] [place] [address] Phone [phone] Care Team Providers Care Size Stamper Name Role Phone Simi Hernandez Tami BROWN Primary Care Provider Reason for Visit * Reason Onset Date Comments Encounter Created in Error 01/25/2024 Encounter Details Date Type Department Care Team (Late st Contact Info) Description 01/25/2024 Telephone Access Center, [place] [address] [facility] *DO NOT REMOVE THIS DEPARTMENT* [place] [address] Services, Scheduling [address] [place] [address] Encounter Created in Error Allergies No known active allergiesdocumented as of [...] Debility 11/05/2022 Coronary artery disease invo lving [place] coronary artery of [place] heart without angina pectoris 11/05/2022 Medical home [...] on file documented as of this encounter Plan of Treatment Upcoming Encounters Date Type Department Care Team (Late st Contact Info) Description 01/27/2024 2:30 PM EST Office Visit Hematology/Oncology [address] [place] [phone] Mana Denton CRNP [address] [place] [address] 02/15/2024 1:40 PM EDT Office Visit Family Practice [facility] 132 [facility] [place] [address] Simi Hernandez CRNP 132 [facility] [place] [address] 04/10/2024 8:00 AM EDT Office Visit MOHS Surgery [facility] 200 [facility] [place] [address] Radha Boogie MD [address] [place] [address] [place] [address] 05/24/2024 1:40 PM EDT Office Visit Dermatology [address] [place] [address] Lisa Garcia PA-C [address] [place] [address] [place] [phone] 06/25/2024 3:30 PM EDT Cardiac Studies [facility] Studies, [facility] [place] [address] Scheduled Procedures Name Priority Associated Diagnoses Date/Ti [...] D LEVEL ONCE IN A LIFETIME-USE SMARTSET# [id number] Completed 01/17/2023, 04/05/2022, 04/28/2021, Additional history exists [...] and were consensually agreed upon. Care Teams Size Stamper Relationship Specialty Start Date End Date Simi Hernandez CRNP [address] [place] [address] PCP - General Nurse Practitioner 10/05/22 documented as of this encounter
--- OUTSIDE RECORDS SUMMARY | 2024-02-03 21:27 | External Medical Summary | Summary of Care ---
Author Name Unknown Organization [facility] Address [address] [place] [address] Phone [phone] Care Team Providers Care Home Lending Officer Name Role Phone Simi Hernandez Primary Care Provider Reason for Visit * Reason Onset Date Comments Advice 01/19/2024 Encounter Details Date Type Department Care Team (Late st Contact Info) Description 01/19/2024 Telephone Family Practice [facility] 132 [facility] [place] [address] Simi Hernandez CRNP 132 [facility] [place] [address] Advice Allergies No known active allergiesdocumented as of this encounter (statuses as of 01/23/2024) Medications Medication Sig Dispensed Refills Start Date [...] as of this encounter (statuses as of 01/23/2024) Active Problems Problem Noted Date Diagnosed Date Dysuria 12/27/2023 Need for prophylactic vaccin ation and inoculation against influenza 10/17/2023 Protein-calorie malnutrition 07/21/2023 Pyogenic inflammation of bone 06/09/2023 Encounter for management of wound VAC 06/09/2023 Bladder dysfunction 04/05/2023 Paroxysmal A-fib 03/17/2023 Hydronephrosis 03/17/2023 HTN, goal below 140/90 01/04/2023 Dyslipidemia, goal LDL below 70 01/04/2023 Debility 11/05/2022 Coronary artery disease invo lving [place] coronary artery of [place] heart without angina pectoris 11/05/2022 Medical home patient encounter 09/30/2022 S/P shoulder replacement, right 09/07/2022 ESBL E. coli carrier 09/07/2022 Presence of intrathecal baclofen pump 09/07/2022 History of [place] (myocardial infarction) 05/12/2022 Mass of chest wall, [...] as of this encounter (statuses as of 01/23/2024) Resolved Problems Problem Noted Date Diagnosed Date [...] as of this encounter (statuses as of 01/23/2024) Immunizations Name Administration Dates Next Due COVID-19 [...] encounter Miscellaneous Notes * Telephone Encounter - Simi Hernandez CRNP - 01/23/2024 2:41 PM EST Clifford. Kirstin, MSN, KEVIN [facility] * Telephone Encounter - Ko Ospina RN - 01/23/2024 1:20 PM EST Called and spoke with patient's daughter Jerilyn and informed her of Simi's previous message. She verbalized understanding of all information. She declined to schedule an appointment for the patient at this time. Jerilyn said she would like to talk to the patient and she if she would come in for an appointment. Jerilyn said she will call and let us know. FYI. * Telephone Encounter - Simi Hernandez CRNP - 01/20/2024 6:49 AM EST Recommend against standing orders for urine. 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 This means bacteria lives in the urinary system all the time. If percy is tired recommend appt to be evaluated. Kirstin, MSN, KEVIN [facility] Medicine * Telephone Encounter - Gianna Roca LPN - 01/19/2024 1:01 PM EST Called and spoke with pt's daughter. Daughter is concerned that mother still may have a UTI. Daughter would like to have a standing order placed for Mother to be able to be checked for a UTI. Daughter states that pt has a history of UTI's and ending up in the hospital needed IV antibiotics. Daughter would like to try and avoid needed to be admitted to the hospital. * Telephone Encounter - Dana Baer OSA - 01/19/2024 12:31 PM EST Daughter, Jerilyn, calling to inquire if mother should be followed-up on for UTIs as she states that gets them chronically. Inquired if there any current symptoms to which she states no but her mother is more tired than usual. Please advise daughter at [phone]. documented in this encounter Plan of Treatment Upcoming Encounters Date Type Department Care Team (Late st Contact Info) Description 01/27/2024 2:30 PM EST Office Visit Hematology/Oncology [facility] [address] [facility] [place] [phone] Mana Denton CRNP [address] [place] [address] 02/15/2024 1:40 PM EDT Office Visit Family Practice [facility] 132 [facility] [place] [address] Simi Hernandez CRNP [address] [place] [address] 04/10/2024 8:00 AM EDT Office Visit MOHS Surgery [facility] [address] [place] [address] Radha Boogie MD [address] [facility] [place] [address] 05/24/2024 1:40 PM EDT Office Visit Dermatology [facility] [address] [place] [address] Lisa Garcia PA-C [address] [facility] [place] [phone] 06/25/2024 3:30 PM EDT Cardiac Studies Cardiac Studies, [facility] [address] [place] [address] Scheduled Procedures Name Priority Associated Diagnoses Date/Ti [...] D LEVEL ONCE IN A LIFETIME-USE SMARTSET# [id number] Completed 01/17/2023, 04/05/2022, 04/28/2021, Additional history exists [...] and were consensually agreed upon. Care Teams Home Lending Officer Relationship Specialty Start Date End Date Simi Hernandez CRNP [address] [place] [address] PCP - General Nurse Practitioner 10/05/22 documented as of this encounter
--- OUTSIDE RECORDS SUMMARY | 2024-02-03 21:27 | External Medical Summary | Summary of Care ---
Author Name Unknown Organization [facility] Address [address] [place] [address] Phone [phone] Care Team Providers Care Home Agent Name Role Phone Simi Hernandez Tmai BROWN Primary Care Provider Reason for Referral * Precert (Within 10 days (routine)) - Authorized Specialty Diagnoses / Procedures Referred By Contac t Referred To Contact Cardiac Studies Diagnoses Nonrheumatic aortic valve stenosis Paroxysmal A-fib (HCC) HTN, goal below 140/90 Procedures ECHO, COMPLETE (2D), TRANS-THORACIC Camille Cuevas PA-C [address] [place] [address] Referral ID Status Reason Start Date Expiration Date V isits Requested Visits Authorized [id number] Authorized Precert 06/28/2024 999 999 Reason for Visit * Reason Comments Follow Up Encounter Details Date Type Department Care Team (Late st Contact Info) Description 12/29/2023 1:30 PM EST Office Visit Cardiology, [facility] [address] [place] [address] Camille Cuevas, [place] [address] [place] [phone] Nonrheumatic aortic valve stenosis*; History of deep vein thrombosis (DVT) of lower extremity; Localized edema; Paroxysmal A-fib (HCC); HTN, goal below 140/90 Allergies No known active allergiesdocumented as of this encounter (statuses as of 01/11/2024) Medications Medication Sig Dispensed Refills Start Date [...] as of this encounter (statuses as of 01/11/2024) Active Problems Problem Noted Date Diagnosed Date Dysuria 12/27/2023 Need for prophylactic vaccin ation and inoculation against influenza 10/17/2023 Protein-calorie malnutrition 07/21/2023 Pyogenic inflammation of bone 06/09/2023 Encounter for management of wound VAC 06/09/2023 Bladder dysfunction 04/05/2023 Paroxysmal A-fib 03/17/2023 Hydronephrosis 03/17/2023 HTN, goal below 140/90 01/04/2023 Dyslipidemia, goal LDL below 70 01/04/2023 Debility 11/05/2022 Coronary artery disease invo lving deering coronary artery of deering heart without angina pectoris 11/05/2022 Medical home patient encounter 09/30/2022 S/P shoulder replacement, right 09/07/2022 ESBL E. coli carrier 09/07/2022 Presence of intrathecal baclofen pump 09/07/2022 History of MD (myocardial infarction) 05/12/2022 Mass of chest wall, [...] as of this encounter (statuses as of 01/11/2024) Resolved Problems Problem Noted Date Diagnosed Date [...] as of this encounter (statuses as of 01/11/2024) Immunizations Name Administration Dates Next Due COVID-19 mRNA, LNP-s, No Pre serve, 2-Dose Series (Nosto) 04/18/2022,11/12/2021,01/28/2021,01/14 PPD 06/05/2018 Pneumococcal Conjugate Vacc, 13 [...] Date Smoking Tobacco: Former Cigarettes 1 6 Q uit: 07/05/1980 Smokeless Tobacco: Never Tobacco Cessation:Counseling Given: Not Answered Comments:quit about about 1979 Alcohol Use Standard Drinks/Week Comments Not Currently [...] on file documented as of this encounter Last Filed Vital Signs Vital Sign Reading Time Taken Comments Blood Pressure 132/76 12/29/2023 1:35 PM EST Pulse 76 12/29/2023 1:35 PM EST Temperature - - Respiratory Rate 12 12/29/2023 1:35 PM EST Oxygen Saturation - - Inhaled Oxygen Concentration - - Weight 66.5 kg (146 lb 8 oz) 12/29/2023 1:35 PM EST Height - - Body Mass Index 25.96 10/13/2023 3:09 PM EST documented in this encounter Progress Notes * Camille Cuevas PA-C - 12/29/2023 1:36 PM EST Images from the original note were not included. Cardiology F/U: HPI: Patient is a 72 year old female here today for routine cardiology f/u. Last clinic valuation approx 1 year ago with the undersigned. History includes 1. multiple sclerosis limiting her mobility 2. Prior DVT with pulmonary emboli, now on chronic Eliquis 3. prior Non STEMI with non obstructive CAD by cath in 2020. Med management recommended 4. Dyslipidemia 5. Chronic venous insufficiency with LE edema 6. Hypertension 7. PAF 8. Mild aortic stenosis During admission to [facility] in Aug 2023/Sep 2023 due to osteomyelitis, DVT Metoprolol was also initiated due to afib. Metoprolol initiated and she converted to NSR. Tolerating low dose. No recurrent palpitations. Feeling well. Taking Eliquis. No chest pain, shortness of breath, palpitations, dizziness, syncope or near syncope. No orthopnea,PND, or increased lower extremity edema. No fever, chills, cough, hematochezia, melena, or hemoptysis. Review of Systems: See HPI for pertinent positives. All others negative, other than those noted in HPI. Patient Active Problem List Diagnosis Code Rosacea L71.9 Multiple sclerosis (HCC) G35 Neurogenic bladder N31.9 Raynaud's syndrome I73.00 Hx of actinic keratosis Z87.2 History of deep vein thrombosis (DVT) of lower extremity Z86.718 Stasis dermatitis of both legs I87.2 History of pulmonary embolism Z86.711 High risk for fracture due to osteoporosis by DEXA scan M81.0 Anemia of chronic disease D63.8 Hx of nonmelanoma skin cancer Z85.828 Gastroesophageal reflux disease with esophagitis K21.00 Depression with anxiety F41.8 H/O: upper GI bleed Z87.19 Hiatal hernia K44.9 SVT (supraventricular tachycardia) I47.10 Mass of chest wall, right R22.2 History of MD (myocardial infarction) I25.2 S/P shoulder replacement, right Z96.611 ESBL E. coli carrier Z22.358 Presence of intrathecal baclofen pump Z97.8 Medical home patient encounter Z00.8 Debility R53.81 Coronary artery disease involving deering coronary artery of deering heart without angina pectoris I25.10 HTN, goal below 140/90 I10 Dyslipidemia, goal LDL below 70 E78.5 Paroxysmal A-fib (HCC) I48.0 Hydronephrosis N13.30 Bladder dysfunction N31.9 Pyogenic inflammation of bone (HCC) M86.9 Encounter for management of wound VAC Z46.89 Protein-calorie malnutrition (HCC) E46 Need for prophylactic vaccination and inoculation against influenza Z23 Dysuria R30.0 Past Medical History: Diagnosis Date Breast cancer (HCC) left breast Depression with anxiety 05/05/2020 H/O: upper GI bleed 05/05/2020 Hiatal hernia 05/07/2020 History of non-ST elevation myocardial infarction (NSTEMI) 05/12/2022 Hx of nonmelanoma skin cancer 09/21/2018 L nasal dorsum (bx 07/2018 Dr. Todd), Mohs scheduled for next month SCCIS L cheek 04/2018 Multiple sclerosis (HCC) Neoplasm of unspecified nature of breast Rosacea Past Surgical History: Procedure Laterality Date BIOPSY OF BREAST, OPEN 10/04/2000 Dr. Ibrahim BONE DEBRIDEMENT, FIRST 20 CM2 Left 01/20/2016 DEBRIDEMENT SKIN SUBCUTANEOUS TISSUE MUSCLE AND BONE performed by Andrea Stanford MD at [facility] BONE DEBRIDEMENT, FIRST 20 CM2 Right 05/12/2023 R lateral ankle osteomyelitis-Andrea Velasco DPRadha CARDIAC CATH-CARDIOLOGY ONLY 07/06/2021 [facility] COLONOSCOPY, DIAGNOSTIC (RECTUM) polyp removed not retrieved / INPT [facility] COLONOSCOPY, DIAGNOSTIC (RECTUM) 01/26/2018 poor prep, repeat / INPT [facility] COLONOSCOPY, DIAGNOSTIC (RECTUM) N/A 11/04/2022 poor prep/non-bleeding internal hemorrhoids/recall 3 months/Colonoscopy/DE COLONOSCOPY, DIAGNOSTIC (RECTUM) 05/05/2023 normal, repeat 5 yrs / COLONOSCOPY FLEXIBLE PROXIMAL DIAGNOSTIC performed by Blanche Chi DO at ENDOSCOPY [facility] CYSTOURETHROSCOPY, INJ FOR CHEMODENERVATION 03/29/2014 CYSTOURETHROSCOPY, INJ FOR CHEMODENERVATION performed by Hannah Milner MD at OR [facility] CYSTOURETHROSCOPY, INJ FOR CHEMODENERVATION 05/22/2015 EGD, FLEXIBLE, DIAGNOSTIC 01/25/2018 normal bx/[facility] EGD, FLEXIBLE, DIAGNOSTIC 04/30/2020 reflux esophagitis, gastric ulcer, repeat 2 mo / [facility] EGD, FLEXIBLE, DIAGNOSTIC 06/18/2020 gastric diverticulum, gastric irritation & ulceration, repeat 3-6 mo / [facility] EGD, FLEXIBLE, DIAGNOSTIC 03/19/2021 erosive gastritis, hiatal hernia / [facility] EGD, FLEXIBLE, DIAGNOSTIC 02/19/2022 erosive gastritis, hiatal hernia / [facility] EGD, FLEXIBLE, DIAGNOSTIC N/A 11/04/2022 large hiatal hernia/gastric diverticulum/EGD/[facility] TOOTH REMOV PART BONY (2) upper wisdom teeth removed IMPLANT/REPLACE SPINE INFUSION PUMP 07/2022 [facility] MASTECTOMY, MODIFIED RADICAL 09/2001 left breast- Dr. Ibrahim PAIN MANAGEMENT CATH 03/13/2009 [employer] Baclofen pump- Dr. Shabazz- [facility] PARTIAL HIP REPLACEMENT & PROSTH left PARTIAL HYSTERECTOMY approx 1991 Ovaries remain in RECONSTRUCT/REPLACE SHOULDER JOINT Right 05/25/2022 Reverse total shoulder--Thad REMOVAL OF APPENDIX 06/25/[address] Johnson [facility] 06/25/2009 REPAIR THIGH FRACTURE, W/IMPLANT 10/2006 Hip ORIF- left hip Dr. Morales REVERSE TOTAL SHOULDER ARTHROPLASTY Right 05/25/2022 Dr. Oneil [facility] SACROILIAC JOINT INJECT W/GUIDANCE 08/17/2018 INJECTION SACROILIAC JOINT performed by Ulises Reilly Cousins, DO at OR [facility] SACROILIAC JOINT INJECT W/GUIDANCE 10/09/2018 INJECTION SACROILIAC JOINT performed by Ulises Reilly Cousins, DO at OR [facility] SACROILIAC JOINT INJECT W/GUIDANCE 02/01/2019 INJECTION SACROILIAC JOINT performed by [facility] Cousins, DO at OR [facility] Family History Problem Relation Age of Onset Cancer Sister thyroid Heart Disorder Grandfather (Maternal) MD mid 70's Heart Disorder Mother CAD - CABG in her 80's Other (Other) Mother Denies family history of skin cancer or skin disease Social History Tobacco Use Smoking status: Former Packs/day: 1.00 Years: 6.00 Additional pack years: 0.00 Total pack years: 6.00 Types: Cigarettes Quit date: 07/05/1980 Years since quittin.5 Smokeless tobacco: Never Tobacco comments: quit about about 1979 Vaping Use Vaping Use: Never used Substance Use Topics Alcohol use: Not Currently Comment: every once in awhile a glass of wine but not often Drug use: No Review of patient's allergies indicates: No Known Allergies Current Outpatient Medications Medication Sig Dispense Refill VITAMIN D 1000 UNITS PO CAPS One capsule daily 30 Cap 5 Aubagio 14 MG Oral Tablet Take 1 Tablet by mouth in the morning. Takes at night. Transdermal Pain Base External Cream Apply to feet daily as needed. (Patient not taking: Reported on 11/08/2023) 500 g 2 Acetaminophen 500 MG Oral Tablet Take 1 Tablet by mouth every 6 hours as needed. Melatonin 3 MG Oral Tablet Disintegrating Take by mouth 3 mg every night at bedtime . (Patient not taking: Reported on 11/08/2023) 30 Tablet 0 Multivitamin Adult Oral Tablet Take by mouth 1 Tablet daily . 30 Tablet 0 Aspirin EC 81 MG Oral Tablet Delayed Release Take 1 Tablet by mouth in the morning. (Patient not taking: Reported on 09/06/2023) Atorvastatin Calcium 20 MG Oral Tablet (Lipitor) TAKE 1 TABLET BY MOUTH ONCE DAILY IN THE MORNING 90 Tablet 2 Azelaic Acid 15 % External Gel (Finacea) Apply to face twice daily as needed 50 g 1 Eliquis 5 MG Oral Tablet Take 1 tablet by mouth twice daily 60 Tablet 5 Oxybutynin Chloride ER 15 MG Oral Tablet Extended Release 24 Hour (Ditropan XL) TAKE 1 TABLET BY MOUTH IN THE MORNING 90 Tablet 1 Doxycycline Hyclate 100 MG Oral Tablet Delayed Release Take 1 Tablet by mouth in the morning and 1 Tablet before bedtime. LUCITA Knee Brace Medium Please eval and fit for bilateral knee brace as recommended by physical therapy. 2 Each O tiZANidine HCl 4 MG Oral Tablet (Zanaflex) Take 1 Tablet by mouth every 6 hours as needed for Muscle spasms. 360 Tablet 0 Omeprazole 40 MG Oral Capsule Delayed Release (PriLOSEC) Take 1 Capsule by mouth in the morning. 30Capsule 3 Magnesium Oxide 400 240 MG Oral Packet (Magnesium Oxide) 400 mg in the morning and 400 mg before bedtime. predniSONE 10 MG Oral Tablet (Deltasone) Take 1 tablet by mouth once daily 90 Tablet 1 Escitalopram Oxalate 20 MG Oral Tablet (Lexapro) Take 1 tablet by mouth once daily 90 Tablet 3 Doxycycline Hyclate 50 MG Oral Capsule (Vibramycin) TAKE 1 CAPSULE BY MOUTH EVERY OTHER DAY 45 Capsule 0 Metoprolol Tartrate 25 MG Oral Tablet (Lopressor) Take 1 tablet by mouth twice daily 180 Tablet 1 No current facility-administered medications for this visit. PHYSICAL EXAMINATION BP 132/76 (BP Site: Left Arm, BP Position: Sitting, BP Cuff Size: Regular) | Pulse 76 | Resp 12 | Wt 66.5 kg (146 lb 8 oz) | BMI 25.96 kg/m | BSA 1.72 m Wt Readings from Last 3 Encounters: 12/29/23 66.5 kg (146 lb 8 oz) 12/27/23 66.8 kg (147 lb 4 oz) 11/08/23 65.8 kg (145 lb) General: no acute distress and stated age, brought here today in a wheelchair Head: normocephalic, no masses, lesions, tenderness or abnormalities Eyes: conjunctiva are pink and non-injected, sclera clear Neck: supple, no adenopathy, no bruits, normal jugular venous pulse, no hepatojugular reflux Chest: normal shape and normal respiratory effort Lungs: clear to auscultation and percussion Cardiac Exam: - regular rate & rhythm, II/ systolic murmur. Pulses: 2(+) throughout Abdomen: abdomen soft, non-tender, no abnormal masses and no hepatosplenomegaly Musculoskeletal: no gait disturbance, no joint inflammation, no deforming arthritis Extremities: 1+ ankle and pretibial edema with chronic varicosities. Neuro: grossly normal exam Cardiac studies/labs: EKG from [facility] dated aug 2023: Normal sinus rhythm Normal ECG When compared with ECG of 05-AUG-2023 14:43, Premature ventricular complexes are no longer Present Borderline criteria for Anterior infarct are no longer Present Borderline criteria for Anterolateral infarct are no longer Present Echo report reviewed from April 2023 at [facility]: EKG performed Oct 2022: Normal sinus rhythm Normal ECG When compared with ECG of 30-APR-2022 16:25, Criteria for Septal infarct are no longer Present Echocardiogram report reviewed dated October 22, 2022 at [facility]: Sinus tach with rates in the 100-110 beats per minute present during the echo. Mild concentric LVH. No regional wall motion abnormalities noted. LV is hyperdynamic. Ejection fraction 65-70%. RV chamber size and systolic function are normal. Grade 1 diastolic dysfunction. No significant valvular pathology. EKG reveals a sinus rhythm with poor R-wave progression and is unchanged from multiple previous studies. Latest Reference Range & Units 08/04/22 14:28 Triglycerides <=174 mg/dL 112 Cholesterol <200 mg/dL 182 Non-HDL Cholesterol <=159 mg/dL 114 HDL Cholesterol >49 mg/dL 68 LDL Cholesterol <=129 mg/dL 92 Impression: 72 year old female 1. Coronary artery disease with a NSTEMI in 2020 with cardiac catheterization indicating nonobstructive coronary artery disease with the most significant being a 50% ostial LAD June 2021 - med management recommended. 2. History of DVT and pulmonary emboli - chronic Eliquis 3. Multiple sclerosis 4. Hypertension - controlled off therapies 5. Dyslipidemia - continue atorvastatin. Improving 6. Mild Aortic stenosis 7. PAF - current NSR on Eliquis and metoprolol Plan: Currently NSR. Continue metoprolol and Eliquis. Mild B/L edema noted. History of DVT. Will proceed with venous duplex. Continue atorvastatin. Repeat echo in April 2024 to re-evaluate . Patient is being evaluated in the cardiology office for ongoing care/risk management for HTN; ; CAD I spent a total of 40 minutes on the date of service in preparation, delivery, and documentation ofthe care provided to Kandy Shelby excluding any time spent in the performance of separately billed services. The patient agrees to the above plan and will call with additional questions or concerns. ER with all emergencies advised. Follow-up: Return in about 6 months (around 06/28/2024). | Check-out note: Schedule venous duplex - today? Or early next week Schedule echo for May 2024 F/U after echo Camille Cuevas PA-C Department of Cardiology This chart was completed in part utilizing [employer] Speech Voice Recognition Software. Grammatical errors, random word insertions, prounoun errors, and incomplete sentences are an occasional consequence of this system due to software limitations, ambient noise, and hardware issues. Any formal questions or concerns about the content, text, or information contained within the body of this dictation should be directly addressed to the provider for clarification. documented in this encounter Nursing Notes * Estefany Aden CMA - 12/29/2023 2:48 PM EST Examination Room: 1 Name: Kandy Shelby Date of : (1950). Reason for Visit: 1 yr f/u Interim Hospitalization(s): none Problems/Concerns: Swelling, redness in LLE - states PCP mentioned vascular US Chest Pain/SOB: denies [facility] Discussed: Not applicable [facility] is a way you can talk to your provider online through e-mail. Would you like to sign up? I can activate it for you? ALREADY ACTIVE Patient was instructed to not get up on the exam table until directed and assisted by their provider; patient is to remain seated in the chair/ wheelchair/ exam table for fall prevention and safety reasons. Patient is aware to have assistance to step down off exam table with personnel. Patient voiced full comprehension of instructions. documented in this encounter Plan of Treatment Upcoming Encounters Date Type Department Care Team (Late st Contact Info) Description 01/27/2024 2:30 PM EST Office Visit Hematology/Oncology [address] [place] [address] Mana Denton CRNP [address] [place] [address] [place] [address] 02/15/2024 1:40 PM EDT Office Visit Family Practice [facility] [place] [address] Simi Hernandez CRNP [address] [place] [address] 04/10/2024 8:00 AM EDT Office Visit [facility] [address] [facility] [address] Radha Boogie MD [address] [place] [address] [place] [address] 05/24/2024 1:40 PM EDT Office Visit Dermatology [address] [place], [place] [address] Lisa Garcia PA-C [address] [place] [phone] 06/25/2024 3:30 PM EDT [facility] [address] [place] [id number] Scheduled Orders Name Type Priority Associated Diagnoses Orde r Schedule ECHO, COMPLETE (2D), TRANS-THORACIC Echocardiology Routine Nonrheumatic aortic valve stenosis Paroxysmal A-fib (HCC) HTN, goal below 140/90 Expected: 06/28/2024 (Approximate), Expires: 12/29/2024 Scheduled Procedures Name Priority Associated Diagnoses Date/Ti [...] #1146) 05/24/2020 Pneumococcal Vaccine: 65+ Years (3 - PPSV23 or PCV20) 07/30/2021 07/30/2020, 07/05/2011 Depression Screening 02/10/2022 02/10/2021 COVID-19 Vaccine (2022- season) 2023 06/04/2022, 04/18/2022, 11/12/2021, Additional history exists Mammogram 04/15/2024 04/15/2023, 03/28, 12/17/2019, Additional history exists GFR 01/05/2025 01/05/2024, 12/2023, 10/31/2023, Additional history exists COLONOSCOPY-EVERY 5 YRS AGES 18-100 05/05/2028 05/05/2023, 05/05/2023, 11/04/2022, Additional history exists VITAMIN D LEVEL ONCE IN A LIFETIME-USE SMARTSET# [id number] Completed 01/17/2023, 04/05/2022, 04/28/2021, Additional history exists [...] Not on filedocumented as of this encounter Results * VASC DUPLEX VENOUS LE UNILAT (01/02/2024 2:42 PM EST) Anatomical Region Laterality Modality Lower Extremity, Vascular Ultras ound Impressions 01/02/2024 3:20 PM EST : Left lower extremity with no evidence of acute deep venous thrombosis. Narrative 01/02/2024 3:20 PM EST VASCULAR LAB RESULTS DATE OF EXAM: 01/02/24 PRESENTING CONDITIONS: Localized swelling, mass and lump, left lower limb, history of DVT in Left Leg This is an interpretation of an exam [facility]. Immediately before proceeding with the vascular lab procedure reported below, the identity of the patient, the correct exam and the correct procedural site were verified. PHYSICIAN REPORT: Lower Extremity Venous Duplex Examination Color flow Doppler, spectral analysis, and transducer compression techniques were applied during this ultrasound image examination. LEFT LOWER EXTREMITY On duplex examination, the left common femoral vein, the sapheno-femoral junction, the femoral vein in the thigh, and popliteal vein are all free of internal echoes and demonstrate normal transducer compressibility during day scale imaging and normal respiratory and augmentation response during Doppler interrogation. The posterior tibial veins and peroneal veins demonstrate no evidence of thrombosis. The contralateral common femoral vein is patent and free of internal echoes. Camille Cuevas PA-C RAD VASCULAR documented in this encounter Visit Diagnoses Diagnosis Nonrheumatic aortic valve stenosis- Primary Aortic valve disorders History of deep vein thrombosis (DVT) of lower extremity Localized edema Edema Paroxysmal A-fib (HCC) Atrial fibrillation HTN, goal below 140/90 Unspecified essential hypertension History of deep vein thrombosis (DVT) of lower extremity Localized edema Edema documented in this encounter Advance Directives Latest [...] were consensually agreed upon. Care Teams Home Agent Relationship Specialty Start Date End Date Simi Hernandez CRNP [address] [place] [id number] PCP - General Nurse Practitioner 10/05/22 documented as of this encounter"
--- OUTSIDE RECORDS SUMMARY | 2024-02-03 21:27 | External Medical Summary | Summary of Care ---
Author Name Unknown Organization [facility] Address [address] [place] [address] Phone [phone] Care Team Providers Care Striping Machine Operator Name Role Phone Simi Hernandez Tami BROWN Primary Care Provider Reason for Visit * Reason Onset Date Comments Test Results 01/13/2024 Encounter Details Date Type Department Care Team (Late st Contact Info) Description 01/13/2024 Telephone Cardiology, [facility] [address] [place] [address] Camille Cuevas PA-C [address] [facility] [place] [address] Test Results Allergies No known active allergiesdocumented as of this encounter (statuses as of 01/13/2024) Medications Medication Sig Dispensed Refills Start Date [...] as of this encounter (statuses as of 01/13/2024) Active Problems Problem Noted Date Diagnosed Date Dysuria 12/27/2023 Need for prophylactic vaccin ation and inoculation against influenza 10/17/2023 Protein-calorie malnutrition 07/21/2023 Pyogenic inflammation of bone 06/09/2023 Encounter for management of wound VAC 06/09/2023 Bladder dysfunction 04/05/2023 Paroxysmal A-fib 03/17/2023 Hydronephrosis 03/17/2023 HTN, goal below 140/90 01/04/2023 Dyslipidemia, goal LDL below 70 01/04/2023 Debility 11/05/2022 Coronary artery disease invo lving [place] coronary artery of [place] heart without angina pectoris 11/05/2022 Medical home patient encounter 09/30/2022 S/P shoulder replacement, right 09/07/2022 ESBL E. coli carrier 09/07/2022 Presence of intrathecal baclofen pump 09/07/2022 History of [place] (myocardial infarction) 05/12/2022 Mass of chest wall, [...] as of this encounter (statuses as of 01/13/2024) Resolved Problems Problem Noted Date Diagnosed Date [...] as of this encounter (statuses as of 01/13/2024) Immunizations Name Administration Dates Next Due COVID-19 mRNA, LNP-s, No Pre serve, 2-Dose Series (5gig) 04/18/2022,11/12/2021,01/28/2021,01/14 PPD 06/05/2018 Pneumococcal Conjugate Vacc, 13 [...] encounter Miscellaneous Notes * Telephone Encounter - Emy Mcdaniel CMA - 01/13/2024 12:47 PM EST My g sent. * Telephone Encounter - Emy Mcdaniel CMA - 01/13/2024 12:46 PM EST ----- Message from Camille uCevas PA-C sent at 01/11/2024 4:42 PM EST ----- No evidence of DVT in left lower extremity Good Continue current medications documented in this encounter Plan of Treatment Upcoming Encounters Date Type Department Care Team (Late st Contact Info) Description 01/27/2024 2:30 PM EST Office Visit Hematology/Oncology [facility] [place] [address] [place], [place] [address] Mana Denton CRNP [address] [place] [address] 02/15/2024 1:40 PM EDT Office Visit Family Practice [facility] [address] [place] [address] Simi Hernandez CRNP [address] [place] [address] 04/10/2024 8:00 AM EDT Office Visit MOHS Surgery [facility] [address] [place] [address] Radha Boogie MD 200 [facility] [place] [address] 05/24/2024 1:40 PM EDT Office Visit Dermatology [facility] [address] [facility] [place] [address] Lisa Garcia PA-C 200 [facility] [place] [phone] 06/25/2024 3:30 PM EDT Cardiac Studies Cardiac Studies, [facility] [address] [place] [address] Scheduled Procedures Name Priority Associated Diagnoses Date/Ti [...] D LEVEL ONCE IN A LIFETIME-USE SMARTSET# [id number] Completed 01/17/2023, 04/05/2022, 04/28/2021, Additional history exists [...] and were consensually agreed upon. Care Teams Striping Machine Operator Relationship Specialty Start Date End Date Simi Hernandez CRNP [address] [place] [address] PCP - General Nurse Practitioner 10/05/22 documented as of this encounter
--- OUTSIDE RECORDS SUMMARY | 2024-02-03 21:28 | External Medical Summary | Summary of Care ---
Author Name Unknown Organization [facility] Address [address] [place] [address] Phone [phone] Care Team Providers Care Consignee Name Role Phone Simi Hernandez Primary Care Provider Reason for Visit * Reason Onset Date Comments Order Request 12/30/2023 Encounter Details Date Type Department Care Team (Late st Contact Info) Description 12/30/2023 Telephone Family Practice [facility] 132 [facility] [place] [address] Simi Hernandez CRNP 132 [facility] [place] [address] Order Request Allergies No known active allergiesdocumented [...] Debility 11/05/2022 Coronary artery disease invo lving [place] coronary artery of [place] heart without angina pectoris 11/05/2022 Medical home patient encounter 09/30/2022 S/P shoulder replacement, right 09/07/2022 ESBL E. coli carrier 09/07/2022 Presence of intrathecal baclofen pump 09/07/[address] (myocardial infarction) 05/12/2022 Mass of chest wall, [...] mRNA, LNP-s, No Pre serve, 2-Dose Series (Fyusion) 04/18/2022,11/12/2021,01/28/2021,01/14 PPD 06/05/2018 Pneumococcal Conjugate Vacc, 13 [...] 6 Q uit: 07/05/1980 Smokeless Tobacco: Never Comments:quit about about [...] Telephone Encounter - Dottie Bridges RN - 01/11/2024 10:14 AM EST Spoke with [facility] who states they have not received orders/plan of care from [facility]. Call made to [facility]. Spoke with pharmacist Patsy who reviewed and states they have everything the need, do not need anything further from our office. * Telephone Encounter - Dottie Bridges RN - 01/03/2024 12:56 PM EST Faxed order to [facility]. * Telephone Encounter - Dottie Bridges RN - 01/03/2024 9:33 AM EST Call made to prior home health to determine which size aquino needles were used, they were not able to find this info in their charting system. Call made to [facility] who previously provided supplies, patient had infusions through port with a 3/4" 22 gauge aquino needle. They ask to fax order to them to provide supplies to the patient for [facility] home health to provide monthly flushes. [facility] wireline supervisor fax# [phone]. Simi, Order pended, is this correct/desired? I will fax to [facility] if so, Thank you! * Telephone Encounter - Simi Hernandez CRNP - 12/30/2023 4:38 PM EST Dottie is there anyone else who can flush her port? * Telephone Encounter - Dottie Singh OSA - 12/30/2023 1:45 PM EST An order was requested for this patient. Name of Requesting Provider: TR @ [facility] Order Requested: PORT FLUSH PSUPPLIES Diagnosis/Reason for Request: PORT FLUSHES What location AND department does the patient wish to have their order completed at? Iv supplier, [facility] doesn't have that on hand to flush ports. Fax Number, if applicable: Call Back Number: [phone] If the caller is not a current patient, please advise the patient to call their current PCP to havethe order's prior to being seen in our office. The patient was informed that our providers would not order anything (medication, labs, etc.) prior to being seen. documented in this encounter Plan of Treatment Upcoming Encounters Date Type Department Care Team (Late st Contact Info) Description 01/27/2024 2:30 PM EST Office Visit Hematology/Oncology [facility] [place] 200 [facility] [place] [address] Mana Denton CRNP [address] [place] [address] 02/15/2024 1:40 PM EDT Office Visit Family [facility] 132 [facility] [place] [address] Simi Hernandez CRNP [address] [place] [address] 04/10/2024 8:00 AM EDT Office Visit MOHS Surgery [facility] [address] [place] [address] Radha Boogei MD 200 [facility] [address] 05/24/2024 1:40 PM EDT Office Visit Dermatology [facility] [address] [place] [address] Lisa Garcia PA-C 200 [facility] [place] [phone] 06/25/2024 3:30 PM EDT Cardiac Studies Cardiac Studies, [facility] [address] [place] [address] Scheduled Procedures Name Priority Associated Diagnoses Date/Ti [...] D LEVEL ONCE IN A LIFETIME-USE SMARTSET# [id number] Completed 01/17/2023, 04/05/2022, 04/28/2021, Additional history exists [...] as of this encounter Visit Diagnoses Diagnosis Port-A-Cath in place- Primary Other postprocedural status documented in this encounter Advance Directives Latest [...] and were consensually agreed upon. Care Teams Consignee Relationship Specialty Start Date End Date Simi Hernandez CRNP [address] [place] [address] PCP - General Nurse Practitioner 10/05/22 documented as of this encounter
--- OUTSIDE RECORDS SUMMARY | 2024-02-03 21:28 | External Medical Summary | Summary of Care ---
Author Name Unknown Organization [facility] Address [address] [place] [address] Phone [phone] Care Team Providers Care Curtains And Draperies Salesperson Name Role Phone Simi Hernandez Tami BROWN Primary Care Provider Reason for Visit * Reason Comments Follow Up Pt has multiple spot s on her face she would like evaluated Encounter Details Date Type Department Care Team (Late st Contact Info) Description 12/30/2023 10:00 AM EST Office Visit Dermatology [facility] [address] [place] [address] Germán Matias MD [address] [place] [phone] Skin tumor*; [place] (actinic keratosis); Hx of basal cell carcinoma; Hx of squamous cell carcinoma Allergies No known active allergiesdocumented as of this encounter (statuses as of 12/30/2023) Medications Medication Sig Dispensed Refills Start Date [...] twice daily 180 Tablet 1 12/22/2023 Active MEDICAL INSTRUCTIONS Use as directed Every Month for 1 day. Home health nurse to flush port with 10 ml of NS, flush with 500 units of heparin (100 unit/ml) 1 Each 1 12/29/2023 Active documented as of this encounter (statuses as of 12/30/2023) Active Problems Problem Noted Date Diagnosed Date Dysuria 12/27/2023 Need for prophylactic vaccin ation and inoculation against influenza 10/17/2023 Protein-calorie malnutrition 07/21/2023 Pyogenic inflammation of bone 06/09/2023 Encounter for management of wound VAC 06/09/2023 Bladder dysfunction 04/05/2023 Paroxysmal A-fib 03/17/2023 Hydronephrosis 03/17/2023 HTN, goal below 140/90 01/04/2023 Dyslipidemia, goal LDL below 70 01/04/2023 Debility 11/05/2022 Coronary artery disease invo lving [place] coronary artery of [place] heart without angina pectoris 11/05/2022 Medical home patient encounter 09/30/2022 S/P shoulder replacement, right 09/07/2022 ESBL E. coli carrier 09/07/2022 Presence of intrathecal baclofen pump 09/07/2022 History of [place] (myocardial infarction) 05/12/2022 Mass of chest wall, [...] as of this encounter (statuses as of 12/30/2023) Resolved Problems Problem Noted Date Diagnosed Date [...] as of this encounter (statuses as of 12/30/2023) Immunizations Name Administration Dates Next Due COVID-19 mRNA, LNP-s, No Pre serve, 2-Dose Series (HumanAPI) 04/18/2022,11/12/2021,01/28/2021,01/14 PPD 06/05/2018 Pneumococcal Conjugate Vacc, 13 [...] on file documented as of this encounter Progress Notes * Germán Matias MD - 12/30/2023 10:29 AM EST Francine Shelby is a 73 year old female here for follow up. Numerous nonmelanoma skin cancer. Lesions cheek latter-day and forehead - the latter resolved between the time she set up the appointment andnow. Other skin problems today: no Current Outpatient Medications Medication Sig Dispense Refill VITAMIN D 1000 UNITS PO CAPS One capsule daily 30 Cap 5 Aubagio 14 MG Oral Tablet Take 1 Tablet by mouth in the morning. Takes at night. Acetaminophen 500 MG Oral Tablet Take 1 Tablet by mouth every 6 hours as needed. Multivitamin Adult Oral Tablet Take by mouth 1 Tablet daily . 30 Tablet 0 Atorvastatin Calcium 20 MG Oral Tablet (Lipitor) [...] by mouth twice daily 180 Tablet 1 MEDICAL INSTRUCTIONS Use as directed Every Month for 1 day. Home health nurse to flush port with 10ml of NS, flush with 500 units of heparin (100 unit/ml) 1 Each 1 Transdermal Pain Base External Cream Apply to feet daily as needed. (Patient not taking: Reported on 11/08/2023) 500 g 2 Melatonin 3 MG Oral Tablet Disintegrating Take by mouth 3 mg every night at bedtime . (Patient not taking: Reported on 11/08/2023) 30 Tablet 0 Aspirin EC 81 MG Oral Tablet Delayed Release Take 1 Tablet by mouth in the morning. (Patient not taking: Reported on 09/06/2023) No current facility-administered medications for this visit. O. Well-developed female type 2 skin, no acute distress, alert and oriented face examined and normal except rough papules rt upper lip rt cheek and rt cheek below eye Smooth pink papule rt latter-day Assessment: / Plan: 1. Rule out basal cell carcinoma Shave biopsy of the lesion noted above to establish and confirm diagnosis. The procedure, risks, benefits, alternatives and expected outcomes were discussed with the patient and consent was obtained.Time out called. Patient identified, procedure verified, site identified and verified. Patient and staff present in agreement. Area prepped with alcohol and anesthetized with 0.5% lidocaine with epinephrine at 1:200,000 concentration. Shave biopsy of lesion performed. 20% AlCl and bandaging applied. Specimen sent to pathology. Patient instructed in routine post-op care. Ok to leave a message/use MyG? 2. Actinic keratosis. Cryosurgery explained to the patient, consent obtained, patient, site and procedure verified, and then cryotherapy was performed with Liquid Nitrogen via cryo spray unit to 3 lesions. Location noted in physical exam. Post op course explained. Pt instructed to contact me if treated lesions persist or recur. 3. Numerous nonmelanoma skin cancer Full skin cehck summer Aveeno sunscreen daily to face Follow up: 6mo Germán Matias MD 12/30/2023 10:29 AM documented in this encounter Nursing Notes * Katya Martin LPN - 12/30/2023 9:56 AM EST Patient identified by name and date of . Do you have any concerns about pain management for today's visit? No Living Will or Advance Directive for Health Care as noted on problem list. [employer] [facility] is a way you can talk to your provider online through e-mail. Would you like to sign up? I can activate it for you? ALREADY ACTIVE Chief Complaint Patient presents with Follow Up Pt has multiple spots on her face she would like evaluated documented in this encounter Plan of Treatment Upcoming Encounters Date Type Department Care Team (Late st Contact Info) Description 01/02/2024 2:30 PM EST Imaging Vascular Lab, [facility] 2nd Floor, [address] [id number] 01/05/2024 9:30 AM EST Laboratory Lab Mobile Phlebotomy [facility] [address] [place] [address] [facility], [facility] Mobile Home Draw [address] [place] [address] 01/27/2024 2:30 PM EST Office Visit Hematology/Oncology [facility] 200 [facility] [place] [address] Mana Denton CRNP [address] [place] [address] 02/15/2024 1:40 PM EDT Office Visit Family Practice [facility] 132 [facility] [place] [address] Simi Hernandez CRNP 132 [facility] [place] [address] 05/24/2024 1:40 PM EDT Office Visit Dermatology [facility] 200 [facility] [place] [address] Lisa Garcia PA-C 200 [facility] [place] [phone] 06/25/2024 3:30 PM EDT Cardiac Studies Cardiac Studies, [facility] 132 [facility] [place] [address] Pending Results Name Type Priority Associated Diagnoses Date /Time SURGICAL PATHOLOGY Pathology Routine Skin tumor 12/30/2023 10:30 AM EST Scheduled Procedures Name Priority Associated Diagnoses Date/Ti [...] 02/10/2021 COVID-19 Vaccine ( season) 2023 06/04/2022, 06/04/2022, 04/18/2022, Additional history exists Mammogram 04/15/2024 04/15/2023, 03/28, 12/17/2019, Additional history exists GFR 11/29/2024 11/29/2023, 02/2023, 10/23/2023, Additional history exists COLONOSCOPY-EVERY 5 YRS AGES 18-100 05/05/2028 05/05/2023, 05/05/2023, 11/04/2022, Additional history exists VITAMIN D LEVEL ONCE IN A LIFETIME-USE SMARTSET# [id number] Completed 01/17/2023, 04/05/2022, 04/28/2021, Additional history exists [...] as of this encounter Visit Diagnoses Diagnosis Skin tumor- Primary Neoplasm of uncertain behavior of skin [place] (actinic keratosis) Actinic keratosis Hx of basal cell carcinoma Personal history of other malignant neoplasm of skin Hx of squamous cell carcinoma Personal history of malignant neoplasm of other site documented in this encounter Advance Directives Latest [...] and were consensually agreed upon. Care Teams Curtains And Draperies Salesperson Relationship Specialty Start Date End Date Simi Hernandez CRNP [address] [place] [address] PCP - General Nurse Practitioner 10/05/22 documented as of this encounter
--- OUTSIDE RECORDS SUMMARY | 2024-02-03 21:28 | External Medical Summary | Summary of Care ---
Author Name Unknown Organization [facility] Address [address] [place] [address] Phone [phone] Care Team Providers Care Voltmeter Operator Name Role Phone Simi Hernandez Tami BROWN Primary Care Provider Reason for Visit * Reason Onset Date Comments Appointment 01/06/2024 Encounter Details Date Type Department Care Team (Late st Contact Info) Description 01/06/2024 Telephone MOHS Surgery [facility] [address] [place] [address] Radha Boogie MD [address] [place] [address] Appointment Allergies No known active allergiesdocumented as of this encounter (statuses as of 01/10/2024) Medications Medication Sig Dispensed Refills Start Date [...] twice daily 180 Tablet 1 12/22/2023 Active Sulfamethoxazole-Tri methoprim 800-160 MG Oral Tablet (Bactrim DS) Take 1 Tablet by mouth in the morning and 1 Tablet before bedtime. Do all this for 7 days. Until gone.. 14 Tablet 0 01/02/2024 documented as of this encounter (statuses as of 01/10/2024) Active Problems Problem Noted Date Diagnosed Date Dysuria 12/27/2023 Need for prophylactic vaccin ation and inoculation against influenza 10/17/2023 Protein-calorie malnutrition 07/21/2023 Pyogenic inflammation of bone 06/09/2023 Encounter for management of wound VAC 06/09/2023 Bladder dysfunction 04/05/2023 Paroxysmal A-fib 03/17/2023 Hydronephrosis 03/17/2023 HTN, goal below 140/90 01/04/2023 Dyslipidemia, goal LDL below 70 01/04/2023 Debility 11/05/2022 Coronary artery disease invo lving [place] coronary artery of [place] heart without angina pectoris 11/05/2022 Medical home patient encounter 09/30/2022 S/P shoulder replacement, right 09/07/2022 ESBL E. coli carrier 09/07/2022 Presence of intrathecal baclofen pump 09/07/2022 History of [place] (myocardial infarction) 05/12/2022 Mass of chest wall, [...] as of this encounter (statuses as of 01/10/2024) Resolved Problems Problem Noted Date Diagnosed Date [...] at prior appointment. Urinary tract infection 03/21/2008 12/0 06/2017 Urinary incontinence 03/21/2008 018 Overview: ICD-10 update of inactive term Overflow incontinence 03/21/20082016 Osteoporosis 07/26/2007 05/05/2020 Breast neoplasm 09/10/2004 12/19/2018 Overview: ICD-10 update of inactive term Incomplete bladder emptying 06/25/2003 08/13/2019 intradermal nevus, left naso labial fold-1.13.03 01/10/2003 12/28/2016 Lump or mass in breast 10/03/200009/10 documented as of this encounter (statuses as of 01/10/2024) Immunizations Name Administration Dates Next Due COVID-19 mRNA, LNP-s, No Pre serve, 2-Dose Series (Eqlim) 04/18/2022,11/12/2021,01/28/2021,01/14 PPD 06/05/2018 Pneumococcal Conjugate Vacc, 13 [...] encounter Miscellaneous Notes * Telephone Encounter - Freida Madrigal OSA - 01/10/2024 3:49 PM EST Pt called back and confirmed mohs appt with dR Boogie, I will mail a mohs packet. * Telephone Encounter - Freida Madrigal OSA - 01/10/2024 8:42 AM EST 01/10 LMM for patient to call [phone] -freida to confirm scheduled mohs surgery appt for 04/10/24Tues at 8am. Asked patient to call to also get her surgery instructions. * Telephone Encounter - Freida Madrigal OSA - 01/09/2024 8:54 AM EST 01/09 spoke to patient and offered tomorrow 01/10 at 8:15am for mohs with DR Boogie she declined due to weather. I let her know I will have to call her back to schedule once Dr Boogie looks at her schedules again for an open mohs spot with her. * Telephone Encounter - Freida Madrigal OSA - 01/06/2024 3:[address] Boogie is reviewing for scheduling will call patient once I hear back from Dr Boogie in regards to scheduling. * Telephone Encounter - Freida Madrigal OSA - 01/06/2024 2:50 PM EST Spoke with pt by phone. Recommended Mohs. Has seen Dr Boogie in [place] previously.- per DR Matias Final Diagnosis A. Skin, rt episcopalian, shave: Basal cell carcinoma, nodular type (see comment) Comment: The original and multiple additional hematoxylin and eosin stained sections were examined. documented in this encounter Plan of Treatment Upcoming Encounters Date Type Department Care Team (Late st Contact Info) Description 01/27/2024 2:30 PM EST Office Visit Hematology/Oncology [facility] 200 [facility] [place] [address] Mana Denton CRNP [address] [place] [address] [place] [address] 02/15/2024 1:40 PM EDT Office Visit Family Practice [facility] [address] [place] [address] Simi Hernandez CRNP [address] [place] [address] 04/10/2024 8:00 AM EDT Office Visit MOHS [facility] [address] Radha Boogie MD 200 [facility] [place] [address] 05/24/2024 1:40 PM EDT Office Visit Dermatology [facility] [address] [place] [address] Lisa Garcia PA-C 200 [facility] [place] [phone] 06/25/2024 3:30 PM EDT Cardiac Studies Cardiac Studies, [facility] [address] [place] [address] Scheduled [...] D LEVEL ONCE IN A LIFETIME-USE SMARTSET# [id number] Completed 01/17/2023, 04/05/2022, 04/28/2021, Additional history exists [...] and were consensually agreed upon. Care Teams Voltmeter Operator Relationship Specialty Start Date End Date Simi Hernandez CRNP [address] [place] [address] PCP - General Nurse Practitioner 10/05/22 documented as of this encounter
--- OUTSIDE RECORDS SUMMARY | 2024-02-03 21:28 | External Medical Summary ---
Author Name Unknown Address Unknown Organization K[facility] [place] [address] Laboratory Report Ordering Provider Test Date Status AMA JACKSON 01/05/2024 12:18:26 Final Observation Date Value Abnormality Reference (Units ) Status WBC, Total 01/05/2024 12:18:26 5.24 4.00-10.8 0 (K/uL) Final RBC 01/05/2024 12:18:26 3.53 3.85-5.15 (M/uL) Final Hemoglobin 01/05/2024 12:18:26 9.1 Below low normal 12 .0-15.3 (g/dL) Final HCT 01/05/2024 12:18:26 31.0 Below low normal 36. 0-45.2 (%) Final MCV 01/05/2024 12:18:26 87.8 81.5-97.5 (fL) Final MCH 01/05/2024 12:18:26 25.8 27.0-34.0 (pg) Final MCHC 01/05/2024 12:18:26 29.4 32.0-36.0 (g/dL) Final RDW 01/05/2024 12:18:26 18.2 11.5-15.5 (%) Final Platelets 01/05/2024 12:18:26 343 140-400 (K /uL) Final MPV 01/05/2024 12:18:26 12.4 6.6-11.1 ( fL) Final Performing Location [facility] [address]
--- OUTSIDE RECORDS SUMMARY | 2024-02-03 21:28 | External Medical Summary | Summary of Care ---
Author Name Unknown Organization [facility] Address [address] [place] [address] Phone [phone] Care Team Providers Care Publications Sales Representative Name Role Phone Simi Hernandez Primary Care Provider Reason for Referral * Evaluate & Treat - Unlimited Visits (Within 30 days (routine)) - Authorized Specialty Diagnoses / Procedures Referred By Kenya soliz Referred To Contact Dermatology Diagnoses Basal cell carcinoma (BCC) of face Lizbeth Matias MD [address] [place] [id number] Referral ID Status Reason Start Date Expiration Date Visits Requested Visits Authorized [id number] Authorized Specialty Services Required 01/05/2024 1 1 Question Answer Referral Priority Within 30 days (routine) Are you referring the patient for Mohs Surgery and have a current positive skin cancer biopsy result? Yes Where should this appointment be scheduled? [facility] Type of Procedure MOHS Surgery Comments Basal cell carcinoma judaism for Mohs Reason for Visit * Reason Comments Follow Up Pt has multiple spot s on her face she would like evaluated Encounter Details Date Type Department Care Team ([facility] st Contact Info) Description 12/30/2023 10:00 AM EST Office Visit Dermatology [facility] [place] [address] [place] [address] Lizbeth Matias MD [address] [place] [address] Skin tumor*; AK (actinic keratosis); Hx of basal cell carcinoma; Hx of squamous cell carcinoma; Basal cell carcinoma (BCC) of face Allergies No known active allergiesdocumented as of this encounter (statuses as of 01/05/2024) Medications Medication Sig Dispensed Refills Start Date [...] heparin (100 unit/ml) 1 Each 1 12/29/2023 4 documented as of this encounter (statuses as of 01/05/2024) Active Problems Problem Noted Date Diagnosed Date Dysuria 12/27/2023 Need for prophylactic vaccin ation and inoculation against influenza 10/17/2023 Protein-calorie malnutrition 07/21/2023 Pyogenic inflammation of bone 06/09/2023 Encounter for management of wound VAC 06/09/2023 Bladder dysfunction 04/05/2023 Paroxysmal A-fib 03/17/2023 Hydronephrosis 03/17/2023 HTN, goal below 140/90 01/04/2023 Dyslipidemia, goal LDL below 70 01/04/2023 Debility 11/05/2022 Coronary artery disease invo lving [place] coronary artery of [place] heart without angina pectoris 11/05/2022 Medical home patient encounter 09/30/2022 S/P shoulder replacement, right 09/07/2022 ESBL E. coli carrier 09/07/2022 Presence of intrathecal baclofen pump 09/07/2022 History of ND (myocardial infarction) 05/12/2022 Mass of chest wall, [...] as of this encounter (statuses as of 01/05/2024) Resolved Problems Problem Noted Date Diagnosed Date [...] as of this encounter (statuses as of 01/05/2024) Immunizations Name Administration Dates Next Due COVID-19 mRNA, LNP-s, No Pre serve, 2-Dose Series ([employer]) 04/18/2022,11/12/2021,01/28/2021,01/14 PPD 06/05/2018 Pneumococcal Conjugate Vacc, 13 [...] as of this encounter Progress Notes * Lizbeth Matias MD - 12/30/2023 10:29 AM EST Francine Shelby is a 73 year old female here for follow up. Numerous nonmelanoma skin cancer. Lesions cheek judaism and forehead - the latter resolved between [...] cheek below eye Smooth pink papule rt judaism Assessment: / Plan: 1. Rule out basal [...] sunscreen daily to face Follow up: 6mo Lizbeth Matias MD 12/30/2023 10:29 AM documented in this encounter Nursing Notes * Katya Martin LPN - 12/30/2023 9:56 AM EST Patient identified by name and date of . Do you have any concerns about pain management for today's visit? No Living Will or Advance Directive for Health Care as noted on problem list. [facility] is a way you can talk to your provider online through e-mail. Would you like to sign up? I can activate it for you? ALREADY ACTIVE Chief Complaint Patient presents with Follow Up Pt has multiple spots on her face she would like evaluated documented in this encounter Miscellaneous Notes * Addendum Note - Lizbeth Matias MD - 01/05/2024 1:14 PM ESTAddended by: LIZBETH MATIAS on: 01/05/2024 01:14 PM Modules accepted: Orders documented in this encounter Plan of Treatment Upcoming Encounters Date Type Department Care Team (Late st Contact Info) Description 01/27/2024 2:30 PM EST Office Visit Hematology/Oncology [facility] [address] [facility] [place] [address] Mana Denton CRNP [address] [place] [address] [place] [address] 02/15/2024 1:40 PM EDT Office Visit Family Practice [facility] [address] [facility] [place] [address] Simi Hernandez CRNP 132 [facility] [place] [address] 05/24/2024 1:40 PM EDT Office Visit Dermatology [facility] 200 [facility] [place] [address] Lisa Garcia PA-C [address] [facility] [place] [phone] 06/25/2024 3:30 PM EDT Cardiac Studies Cardiac Studies, [facility] [address] [facility] [place] [address] Scheduled Procedures Name Priority Associated Diagnoses Date/Ti me COLONOSCOPY FLEXIBLE PROXIMAL DIAGNOSTIC Recall Screen for colon cancer Scheduled Referrals Name Type Priority Associated Diagnoses Orde r Schedule MOHS SURGERY REFERRAL OP Referral Within 30 days (routine) Basal cell carcinoma (BCC) of face Ordered: 01/05/2024 Health Maintenance Due Date Last Done Comments [...] D LEVEL ONCE IN A LIFETIME-USE SMARTSET# [id number] Completed 01/17/2023, 04/05/2022, 04/28/2021, Additional history exists [...] Not on filedocumented as of this encounter Procedures Procedure Name Priority Date/Time Associated Diagnosis Comments SURGICAL PATHOLOGY Routine 12/30/2023 10 :30 AM EST Skin tumor DERM IMAGE (SITE) Routine 12/30/2023 Skin tumor documented in this encounter Results * SURGICAL PATHOLOGY (12/30/2023 10:30 AM EST) Final Diagnosis A. Skin, rt judaism, shave: Basal cell carcinoma, nodular type (see comment) Comment: The original and multiple additional hematoxylin and eosin stained sections were examined. 01/05/2024 9:49 AM EST LABORATORY [facility] Clinical History See Order Comments 01/05/2024 9:49 AM EST LABORATORY [facility] Order Comments Rt judaism 3mm pink papule basal cell carcinoma? 01/05/2024 9:49 AM EST LABORATORY [facility] Gross Description A. Skin. Received in formalin with a container labeled with "Kandy Shelby", "[id number]", "1950" and " right judaism". Received is a 0.5 x 0.4 cm skin shave. The skin surface luna-white firm and shiny. The underlying tissue is inked. The specimen is intact and submitted in cassette A1. Gross By: MR 01/05/2024 9:49 AM EST LABORATORY [facility] Sign Out Location Pathologist sign out performed at [facility] ([facility]), [address] [place] [address]. 01/05/2024 9:49 AM EST LABORATORY [facility] Photographic images and diagrams represent good findings in this case; they are not intended to replace a complete review of the final diagnostic report. The following statement applies to Flow Cytometry, Histology, In situ Hybridization Assays and Molecular Genetics. This test was developed and performed at [facility] and its performance characteristics determined by [facility]. It has not been cleared or approved by the U.S. Food and Drug Administration. The FDA has determined that such clearance or approval is not necessary. This test is used for clinical purposes. It should not be regarded as investigational or for research. Special stains, including histochemical stains, and studies using immunologic and AZUL methodology (where applicable) are performed with appropriate positive and negative control reactions. 01/05/2024 9:49 AM EST LABORATORY [facility] Skin structure / Unknown 12/30/2023 10:30 AM EST 12/30/2023 10:30 AM EST Comment:Rt judaism 3mm pink p apule basal cell carcinoma? Lizbeth Matias MD LAB PATHOLOGY O [facility]DER[facility] LAB[facility]ATORY [facility] [address] [place], [place] [id number] * DERM IMAGE (SITE) (12/30/2023) 12/30/2023 Lizbeth Matias MD DIGITAL PHOTOGR APHY documented in this encounter Visit Diagnoses Diagnosis Skin tumor- Primary Neoplasm of uncertain behavior of skin AK (actinic keratosis) Actinic keratosis Hx of basal cell carcinoma Personal history of other malignant neoplasm of skin Hx of squamous cell carcinoma Personal history of malignant neoplasm of other site Basal cell carcinoma (BCC) of face documented in this encounter Advance Directives Latest [...] and were consensually agreed upon. Care Teams Publications Sales Representative Relationship Specialty Start Date End Date Simi Hernandez CRNP [address] [place] [address] PCP - General Nurse Practitioner 10/05/22 documented as of this encounter
--- OUTSIDE RECORDS SUMMARY | 2024-02-03 21:28 | External Medical Summary ---
Author Name Unknown Address Unknown Organization K09:[facility] [place] [address] Laboratory Report Ordering Provider Test Date Status AMA JACKSON 01/05/2024 12:18:26 Final Observation Date Value Abnormality Reference (Units ) Status SYNC LEUKOCYTES IN BLOOD BY AUTOMATED COUNT 01/05/2024 12:18:26 5.24 4.00-10.80 (K/uL) Final Segs 01/05/2024 12:18:26 58.2 40.0-75.0 (%) Final Lymphs % 01/05/2024 12:18:26 21.8 18.0-42.0 (%) Final Monos 01/05/2024 12:18:26 16.0 Above high normal 1.0-11.0 (%) Final Eosinophils 01/05/2024 12:18:26 2.5 0.0-6.0 (%) Final Basos 01/05/2024 12:18:26 1.5 0.0-2.0 (%) Final Absolute Segs 01/05/2024 12:18:26 3.05 1.80-7.70 (K/uL) Final Lymphs, absolute 01/05/2024 12:18:26 1.14 1.00-4.80 (K/ul) Final Monos, Abs 01/05/2024 12:18:26 0.84 0.00-1.10 (K/uL) Final Eos, Abs 01/05/2024 12:18:26 0.13 0.00-0.70 (K/uL) Final Basos, Abs 01/05/2024 12:18:26 0.08 0.00-0.20 (K/uL) Final Performing Location [facility] [place] [address]
--- OUTSIDE RECORDS SUMMARY | 2024-02-03 21:28 | External Medical Summary | Summary of Care ---
Author Name Unknown Organization [facility] Address [address] [place] [address] Phone [phone] Care Team Providers Care Stockbroking Dealer Name Role Phone Simi Hernandez Primary Care Provider Reason for Visit * Reason Onset Date Comments Order Request 12/30/2023 Encounter Details Date Type Department Care Team (Late st Contact Info) Description 12/30/2023 Telephone Family Practice [facility] [address] [facility] [place] [address] Simi Hernandez CRNP 132 [facility] [place] [address] Order Request Allergies No known active allergiesdocumented as of this encounter (statuses as of 01/03/2024) Medications Medication Sig Dispensed Refills Start Date [...] and 1 Tablet before bedtime. 0 Active LUCIAT Knee Brace Medium Please eval and fit [...] as of this encounter (statuses as of 01/03/2024) Active Problems Problem Noted Date Diagnosed Date [...] of intrathecal baclofen pump 09/07/2022 History of [place] (myocardial infarction) 05/12/2022 Mass of chest wall, [...] as of this encounter (statuses as of 01/03/2024) Resolved Problems Problem Noted Date Diagnosed Date [...] as of this encounter (statuses as of 01/03/2024) Immunizations Name Administration Dates Next Due COVID-19 mRNA, LNP-s, No Pre serve, 2-Dose Series ([employer]) 04/18/2022,11/12/2021,01/28/2021,01/14 PPD 06/05/2018 Pneumococcal Conjugate Vacc, 13 [...] money to buy more. Never true 07/21/20 Within the past 12 months, t he [...] 01/03/2024 12:56 PM EST [facility] * Telephone Encounter - Dottie Bridges RN - 01/03/2024 9:33 AM EST Call made to prior home health to determine which size aquino needles were used, they were not able to find this info in their charting system. Call made to [facility] who previously provided supplies, patient had infusions through port with a 3/4" 22 gauge aquino needle. They ask to fax order to them to provide supplies to the patient for [facility] home health to provide monthly flushes. [facility] fisher troll line fax# [phone]. Simi, Order pended, is this correct/desired? I will fax to [facility] if so, Thank you! * Telephone Encounter - Simi Hernandez CRNP - 12/30/2023 4:38 PM EST Dottie is there anyone else who can flush her port? * Telephone Encounter - Dottie Singh OSA - 12/30/2023 1:45 PM EST An order was requested for this patient. Name of Requesting Provider: [facility] Order Requested: PORT FLUSH PSUPPLIES Diagnosis/Reason for Request: PORT FLUSHES What location AND department does the patient wish to have their order completed at? Iv supplier, [facility] doesn't have that on hand to flush ports. Fax Number, if applicable: Call Back Number: [phone] If the caller is not a current [...] Care Team (Late st Contact Info) Description 01/05/2024 9:30 AM EST Laboratory Lab Mobile Phlebotomy [facility] [address] [place] [address] [facility] Mobile Home Draw [address] [place] [address] 01/27/2024 2:30 PM EST Office Visit Hematology/Oncology [facility] [address] [place] [address] Mana Denton CRNP [address] [place] [address] 02/15/2024 1:40 PM EDT Office Visit [facility] [address] Simi Hernandez CRNP [address] [facility] [place] [address] 05/24/2024 1:40 PM EDT Office Visit Dermatology [facility] [address] [place] [address] Lisa Garcia PA-C [address] [place] [phone] 06/25/2024 3:30 PM EDT Cardiac Studies Cardiac Studies, [facility] [address] [place] [address] Scheduled Procedures Name Priority Associated Diagnoses Date/Ti [...] 02/10/2021 COVID-19 Vaccine (2022- season) 2023 06/04/2022, 06/04/2022, 04/18/2022, Additional history exists Mammogram 04/15/2024 04/15/2023, 03/28, 12/17/2019, Additional history exists GFR 11/29/2024 11/29/2023, 02/2023, 10/23/2023, Additional history exists COLONOSCOPY-EVERY 5 YRS AGES 18-100 05/05/2028 05/05/2023, 05/05/2023, 11/04/2022, Additional history exists VITAMIN D LEVEL ONCE IN A LIFETIME-USE SMARTSET# [id number] Completed 01/17/2023, 04/05/2022, 04/28/2021, Additional history exists [...] Code 10/08/2016 9:07 AM 10/08/2016 4:23 PM Th is order reflects the patients wishes and were [...] and were consensually agreed upon. Care Teams Stockbroking Dealer Relationship Specialty Start Date End Date Simi Hernandez CRNP [address] [place] [address] PCP - General Nurse Practitioner 10/05/22 documented as of this encounter
--- OUTSIDE RECORDS SUMMARY | 2024-02-03 21:28 | External Medical Summary | Summary of Care ---
Author Name Unknown Organization [facility] Address [address] [place] [address] Phone [phone] Care Team Providers Care Assembler Engine Name Role Phone Simi Hernandez Tami BROWN Primary Care Provider Reason for Visit * Reason Comments Follow Up Pt has multiple spot s on her face she would like evaluated Encounter Details Date Type Department Care Team (Late st Contact Info) Description 12/30/2023 10:00 AM EST Office Visit Dermatology [facility] 200 [place] [address] Germán Matias MD [address] [place] [phone] Skin tumor*; AK (actinic keratosis); Hx [...] Debility 11/05/2022 Coronary artery disease invo lving makah coronary artery of makah heart without angina pectoris 11/05/2022 Medical home [...] mRNA, LNP-s, No Pre serve, 2-Dose Series ([employer]) 04/18/2022,11/12/2021,01/28/2021,01/14 PPD 06/05/2018 Pneumococcal Conjugate Vacc, 13 [...] up. Numerous nonmelanoma skin cancer. Lesions cheek hoahaoism and forehead - the latter resolved between [...] cheek below eye Smooth pink papule rt hoahaoism Assessment: / Plan: 1. Rule out basal [...] Health Care as noted on problem list. [facility] is a way you can talk to [...] 01/02/2024 2:30 PM EST Imaging Vascular Lab, [facility] 2nd Floor, [address] [id number] 01/05/2024 9:30 AM EST Laboratory Lab Mobile Phlebotomy [facility] [address] [place] [address] [facility] Mobile Home Draw [address] [place] [address] 01/27/2024 2:30 PM EST Office Visit Hematology/Oncology [facility] [address] [facility] [place] [address] Mana Denton CRNP [address] [place] [address] 02/15/2024 1:40 PM EDT Office Visit Family Practice [facility] 132 [facility] [place] [address] Simi Hernandez CRNP 132 [facility] [place] [address] 05/24/2024 1:40 PM EDT Office Visit Dermatology [facility] 200 [facility] [place] [address] Lisa Garcia PA-C 200 [facility] [place] [phone] 06/25/2024 3:30 PM EDT Cardiac Studies Cardiac Studies, [facility] 132 [facility] [place] [address] Pending Results Name Type Priority Associated Diagnoses [...] D LEVEL ONCE IN A LIFETIME-USE SMARTSET# [id number] Completed 01/17/2023, 04/05/2022, 04/28/2021, Additional history exists [...] and were consensually agreed upon. Care Teams Assembler Engine Relationship Specialty Start Date End Date Simi Hernandez CRNP [address] [place] [address] PCP - General Nurse Practitioner 10/05/22 documented as of this encounter
--- OUTSIDE RECORDS SUMMARY | 2024-02-03 21:28 | External Medical Summary ---
Author Name Unknown Address Unknown Organization K09:[facility] [address] [place] [address] Laboratory Report Ordering Provider Test Date Status AMA JACKSON 01/05/2024 12:22:06 Final Observation Date Value Abnormality Reference (Units ) Status BUN 01/05/2024 12:22:06 23 Above high normal 6-20 (mg/dL) Final Creatinine 01/05/2024 12:22:06 1.3 Above high normal 0.5-1.0 (mg/dL) Final Glomerular filtration rate/1.73 sq M.predicted [Volume Rate/Area] in Serum, Plasma or Blood by Creatinine-based formula (CKD-EPI) 01/05/2024 12:22:06 46 Below low normal >=60 (mL/min) Final eGFR is calculated based on the CKD-EPI 2020 equation SODIUM 01/05/2024 12:22:06 140 135-146 (m mol/L) Final Potassium 01/05/2024 12:22:06 4.3 3.5-5.1 (m mol/L) Final Cl 01/05/2024 12:22:06 101 98-107 (mm ol/L) Final CO2 01/05/2024 12:22:06 28 22-32 (mmo l/L) Final Anion gap 01/05/2024 12:22:06 11 7-15 (mmol /L) Final Glucose 01/05/2024 12:22:06 85 70-120 (mg /dL) Final Albumin 01/05/2024 12:22:06 3.9 3.8-5.0 (g /dL) Final AST (Aspartate aminotransferase) 01/05/2024 12:22:06 23 10-35 (U/L) Final Alk Phos 01/05/2024 12:22:06 60 35-130 (U/ L) Final Bilirubin, Total 01/05/2024 12:22:06 0.2 <=1 .2 (mg/dL) Final Calcium 01/05/2024 12:22:06 9.8 8.4-10.2 ( mg/dL) Final Protein 01/05/2024 12:22:06 6.1 6.0-8.3 (g /dL) Final ALT (Alanine aminotransferase) 01/05/2024 12:22:06 23 10-35 (U/L) Final Performing Location [facility] [address] [place] [address]
--- OUTSIDE RECORDS SUMMARY | 2024-02-03 21:29 | External Medical Summary | Summary of Care ---
Author Name Unknown Organization [facility] Address [address] [place] [address] Phone [phone] Care Team Providers Care Digitizer Name Role Phone Simi Hernandez Primary Care Provider Reason for Visit * Reason Comments Re-Check Encounter Details Date Type Department Care Team (Late st Contact Info) Description 12/27/2023 3:00 PM EST Office Visit Family Practice [facility] [address] [place] [address] Simi Hernandez CRNP [address] [place] [phone] HTN, goal below 140/90*; Coronary artery disease involving clark's point coronary artery of clark's point heart without angina pectoris; Paroxysmal A-fib (HCC); Multiple sclerosis (HCC); Debility; Dysuria; Anemia of chronic disease; Neurogenic bladder; Stasis dermatitis of both legs; Depression with anxiety Allergies No known active allergiesdocumented as of this encounter (statuses as of 12/28/2023) Medications Medication Sig Dispensed Refills Start Date [...] as of this encounter (statuses as of 12/28/2023) Active Problems Problem Noted Date Diagnosed Date Dysuria 12/27/2023 Need for prophylactic vaccin ation and inoculation against influenza 10/17/2023 Protein-calorie malnutrition 07/21/2023 Pyogenic inflammation of bone 06/09/2023 Encounter for management of wound VAC 06/09/2023 Bladder dysfunction 04/05/2023 Paroxysmal A-fib 03/17/2023 Hydronephrosis 03/17/2023 HTN, goal below 140/90 01/04/2023 Dyslipidemia, goal LDL below 70 01/04/2023 Debility 11/05/2022 Coronary artery disease invo lving clark's point coronary artery of clark's point heart without angina pectoris 11/05/2022 Medical home patient encounter 09/30/2022 S/P shoulder replacement, right 09/07/2022 ESBL E. coli carrier 09/07/2022 Presence of intrathecal baclofen pump 09/07/2022 History of MS (myocardial infarction) 05/12/2022 Mass of chest wall, [...] nasal dorsum 09/2019, SCCIS L cheek 04/2018 ([facility]) Anemia of chronic disease 03/16/2018 High risk for fracture due to osteoporosis by DE XA scan 09/09/2017 History of pulmonary embolism 04/18/2017 History of deep vein thrombosis (DVT) of lower e xtremity 12/13/2016 Stasis dermatitis of both legs 12/13/2016 Hx of actinic keratosis 11/10/2015 Raynaud's syndrome 10/29/2013 Neurogenic bladder 03/21/2008 Rosacea 06/28/2002 Multiple sclerosis documented as of this encounter (statuses as of 12/28/2023) Resolved Problems Problem Noted Date Diagnosed Date [...] as of this encounter (statuses as of 12/28/2023) Immunizations Name Administration Dates Next Due COVID-19 mRNA, LNP-s, No Pre serve, 2-Dose Series (AppSense) 04/18/2022,11/12/2021,01/28/2021,01/14 PPD 06/05/2018 Pneumococcal Conjugate Vacc, 13 [...] Sign Reading Time Taken Comments Blood Pressure 130/82 12/27/2023 2:56 PM EST Pulse 60 12/27/2023 2:56 PM EST Temperature - - Respiratory Rate - - Oxygen Saturation - - Inhaled Oxygen Concentration - - Weight 66.8 kg (147 lb 4 oz) 12/27/2023 2:56 PM EST Height - - Body Mass Index 26.09 10/13/2023 3:09 PM EST documented in this encounter Progress Notes * Simi Hernandez CRNP - 12/27/2023 3:04 PM EST Follow up Family Medicine Visit CC: Chief Complaint Patient presents with Re-Check History of Present Illness: Kandy Shelby is a 73 year old female presenting for follow up. Feels stressed and depressed as she just found out that her youngest daughter is getting . Kandy reports that she enrolled in counseling every 2 weeks. She is seeing evita Bonds. Denies chest pain. MS and chronic mobility. SHe is still going fit for play 3 days per week. Walking at home with walker at home. Feels left leg is hard and swollen again like when she had DVT. Mild pain with walking. On Eliquis and not missing. Dvt in August after missed eliquis. Right lateral ankle wound. Goes to see surgeon once weekly in lock have. She is seeing home health. [facility] is supposed to be flushing port once monthly. Feels like she dysuria. Denies fever or flank pain. Denies blood in urine. Hx of EBSL UTI. Still self cathing 5 times daily. Social History Socioeconomic History Marital status: Spouse name: Not on file Number of children: 3 Years of education: Not on file Highest education level: Not on file Occupational History Not on file Tobacco Use Smoking status: Former Packs/day: 1.00 Years: 6.00 Additional pack years: 0.00 Total pack years: 6.00 Types: Cigarettes Quit date: 07/05/1980 Years since quittin.5 Smokeless tobacco: Never Tobacco comments: quit about about 1979 Vaping Use Vaping Use: Never used Substance and Sexual Activity Alcohol use: Not Currently Comment: every once in awhile a glass of wine but not often Drug use: No Sexual activity: Yes Partners: Male Other Topics Concern Service Not Asked Blood Transfusions Not Asked Caffeine Concern Not Asked Occupational Exposure Not Asked Hobby Hazards Not Asked Sleep Concern Not Asked Stress Concern Not Asked Weight Concern Not Asked Special Diet Not Asked Back Care Not Asked Exercise Not Asked Bike Helmet Not Asked Seat Belt Yes Self-Exams Not Asked Social History Narrative ; 3 daughters, all healthy; no occupational exposures Social Determinants of Health Financial Resource Strain: Not on file Food Insecurity: No Food Insecurity (07/21/2023) Hunger Vital Sign Worried About Running Out of Food in the Last Year: Never true Ran Out of Food in the Last Year: Never true Transportation Needs: Not on file Physical Activity: Not on file Stress: Not on file Social Connections: Not on file Intimate Partner Violence: Not on file Housing Stability: Not on file PMH: Past Medical History: Diagnosis Date Breast cancer [...] BONE performed by Andrea Stanford MD at [facility] BONE DEBRIDEMENT, FIRST 20 CM2 Right 05/12/2023 R lateral ankle osteomyelitis-Andrea Velasco DPRadha CARDIAC CATH-CARDIOLOGY ONLY 07/06/2021 [facility] COLONOSCOPY, DIAGNOSTIC (RECTUM) polyp removed not retrieved / INPT [facility] COLONOSCOPY, DIAGNOSTIC (RECTUM) 01/26/2018 poor prep, repeat / INPT [facility] COLONOSCOPY, DIAGNOSTIC (RECTUM) N/A 11/04/2022 poor prep/non-bleeding internal hemorrhoids/recall 3 months/Colonoscopy/AR COLONOSCOPY, DIAGNOSTIC (RECTUM) 05/05/2023 normal, repeat 5 yrs / COLONOSCOPY FLEXIBLE PROXIMAL DIAGNOSTIC performed by Blanche Chi DO at ENDOSCOPY [facility] CYSTOURETHROSCOPY, INJ FOR CHEMODENERVATION 03/29/2014 CYSTOURETHROSCOPY, INJ FOR CHEMODENERVATION performed by Hannah Milner MD at OR [facility] CYSTOURETHROSCOPY, INJ FOR CHEMODENERVATION 05/22/2015 EGD, FLEXIBLE, DIAGNOSTIC 01/25/2018 normal bx/[facility] EGD, FLEXIBLE, DIAGNOSTIC 04/30/2020 reflux esophagitis, gastric ulcer, repeat 2 mo / [facility] EGD, FLEXIBLE, DIAGNOSTIC 06/18/2020 gastric diverticulum, gastric irritation & ulceration, repeat 3-6 mo / [facility] EGD, FLEXIBLE, DIAGNOSTIC 03/19/2021 erosive gastritis, hiatal hernia / [facility] EGD, FLEXIBLE, DIAGNOSTIC 02/19/2022 erosive gastritis, hiatal hernia / [facility] EGD, FLEXIBLE, DIAGNOSTIC N/A 11/04/2022 large hiatal hernia/gastric diverticulum/EGD/[facility] TOOTH REMOV PART BONY (2) upper wisdom teeth removed IMPLANT/REPLACE SPINE INFUSION PUMP 07/2022 [facility] MASTECTOMY, MODIFIED RADICAL 09/2001 left breast- Dr. Ibrahim PAIN MANAGEMENT CATH 03/13/2009 Medtronic Baclofen pump- Dr. Shabazz- [facility] PARTIAL HIP REPLACEMENT & PROSTH left PARTIAL HYSTERECTOMY approx 1991 Ovaries remain in RECONSTRUCT/REPLACE SHOULDER JOINT Right 05/25/2022 Reverse total shoulder--Thad REMOVAL OF APPENDIX 06/25/[address] Johnson [facility] 06/25/2009 REPAIR THIGH FRACTURE, W/IMPLANT 10/2006 Hip ORIF- left hip Dr. Morales REVERSE TOTAL SHOULDER ARTHROPLASTY Right 05/25/2022 Dr. Oneil [facility] SACROILIAC JOINT INJECT W/GUIDANCE 08/17/2018 INJECTION SACROILIAC JOINT performed by Ulises B Cousins, DO at OR [facility] SACROILIAC JOINT INJECT W/GUIDANCE 10/09/2018 INJECTION SACROILIAC JOINT performed by Ulises B Cousins, DO at OR [facility] SACROILIAC JOINT INJECT W/GUIDANCE 02/01/2019 INJECTION SACROILIAC JOINT performed by [facility] Cousins, DO at OR [facility] No outpatient medications have been marked as taking for the 12/27/23 encounter (Office Visit) with Simi Hernandez CRNP. Review of patient's allergies indicates: No Known Allergies Most Recent Immunizations Administered Date(s) Administered COVID-19 mRNA, LNP-s, No Preserve, 2-Dose Series (AppSense) 04/18/2022 Denosumab 01/03/2019 PPD 06/05/2018 Pneumococcal Conjugate Vacc, 13 Valent (Prevnar) 07/30/2020 Pneumococcal Polysaccharide PPV23 (Pneumovax) 07/05/2011 Seasonal Influenza Virus Vaccine, Unspecified Formulation 10/02/2021 Seasonal Influenza, PF, 6 M & above, IM , (FluLaval or Fluzone) 09/18/2020 Seasonal Influenza, Quadrivalent Hd (Fluzone Hd) 10/13/2023 Seasonal Influenza, Quadrivalent, No Preserve, IM 11/10/2016 Seasonal Influenza, Split, IIV3, With Preserve, Inj 08/29/2014 Seasonal Influenza, Trivalent, Adjuvanted, 65+ yrs 10/22/2019 TDAP (age 11 and older)(Adacel) 04/30/2009 Review of Systems: Review of Systems Constitutional: Positive for fatigue. Negative for chills, diaphoresis and fever. Respiratory: Negative for shortness of breath. Cardiovascular: Positive for leg swelling. Negative for chest pain and palpitations. Gastrointestinal: Negative for abdominal pain, constipation, diarrhea and vomiting. Genitourinary: Positive for difficulty urinating, dysuria and pelvic pain. Negative for hematuria. Neurological: Negative for dizziness and syncope. Psychiatric/Behavioral: Positive for dysphoric mood. The patient is nervous/anxious. Physical Exam: BP 130/82 | Pulse 60 | Wt 66.8 kg (147 lb 4 oz) | BMI 26.09 kg/m | BSA 1.72 m Physical Exam HENT: Head: Normocephalic. Cardiovascular: Rate and Rhythm: Normal rate and regular rhythm. Pulmonary: Effort: Pulmonary effort is normal. Breath sounds: Normal breath sounds. Abdominal: General: Bowel sounds are normal. Palpations: Abdomen is soft. Tenderness: There is no abdominal tenderness. Musculoskeletal: Right lower le+ Pitting Edema present. Left lower le+ Pitting Edema present. Skin: Comments: Right lateral ankle wrapped per wound center Neurological: General: No focal deficit present. Mental Status: She is alert and oriented to person, place, and time. Psychiatric: Mood and Affect: Mood normal. Behavior: Behavior normal. Thought Content: Thought content normal. Judgment: Judgment normal. Assessment and Plan: 1. HTN, goal below 140/90 STABLE 2. Coronary artery disease involving clark's point coronary artery of clark[place] heart without angina pectoris Denies anginal symptoms 3. Paroxysmal A-fib (HCC) Rate controlled On eliquis 4. Multiple sclerosis (HCC) Managed by neuro at [facility] On Aubagio Enrolled in PT 3 days weekly 5. Debility CHRONIC Uses rollator walker at home 6. Dysuria INCREASED SELF CATHS DAILY HX OF ebsl - URINALYSIS, REFLEX TO CULTURE (NOT FOR NEUTROPENIC PATIENTS); Future 7. Anemia of chronic disease WORKING WITH HEMATOLOGY 8. Neurogenic bladder SELF CATHS 4-5 TIME PER DAY 9. Stasis dermatitis of both legs CHRONIC 10. Depression with anxiety Increased with recent new of daughter's family issues. Seeing counselor On lexapro 20 mg I have advised the patient to call our office incase of any worsening or new symptoms. I spent a total of 40-54 minutes (exact time 40 mins) on the date of service in preparation, delivery, and documentation of the care provided to Kandy Shelby excluding any time spent in the performance of separately billed services. ADELSO Fulton, KEVIN [facility] documented in this encounter Plan of Treatment Upcoming Encounters Date Type Department Care Team (Late st Contact Info) Description 12/29/2023 1:30 PM EST Office Visit Cardiology, [facility] [address] [place] [address] Camille Cuevas PA-C [address] [facility] [place] [address] 12/30/2023 10:00 AM EST Office Visit Dermatology [facility] [address] [facility] [place] [address] Germán Matias MD [address] [place] [address] 01/05/2024 9:30 AM EST Laboratory Lab Mobile Phlebotomy [facility] [address] [place] [address] [facility], [facility] Mobile Home Draw [address] [place] [address] 01/27/2024 2:30 PM EST Office Visit Hematology/Oncology [facility] [address] [facility] [place] [address] Mana Denton CRNP [address] [facility] [place] [address] 02/15/2024 1:40 PM EDT Office Visit Family Practice [facility] [address] [place] [address] Simi Hernandez CRNP [address] [place] [address] 05/24/2024 1:40 PM EDT Office Visit Dermatology [facility] [address] [facility] [place] [address] Lisa Garcia PA-C [address] [facility] [place] [phone] Pending Results Name Type Priority Associated Diagnoses Date /Time URINALYSIS, REFLEX TO CULTURE (NOT FOR NEUTROPENIC PATIENTS) Lab Routine Dysuria 12/27/2023 3:51 PM EST URINALYSIS, REFLEX TO CULTURE (CUP ONLY) Lab Routine Dysuria 12/27/2023 3:51 PM EST CULTURE, URINE, QUANTITATIVE Lab Routine Dysuria 12/27/2023 3:51 PM EST Scheduled Orders Name Type Priority Associated Diagnoses Orde r Schedule URINALYSIS, REFLEX TO CULTURE (NOT FOR NEUTROPENIC PATIENTS) Lab Routine Dysuria Expected: 12/27/2023, Expires: 12/27/2024 Scheduled Procedures Name Priority Associated Diagnoses Date/Ti [...] D LEVEL ONCE IN A LIFETIME-USE SMARTSET# [id number] Completed 01/17/2023, 04/05/2022, 04/28/2021, Additional history exists [...] Procedure Name Priority Date/Time Associated Diagnosis Comments URINALYSIS, REFLEX TO CULTURE Routine 12/27/2023 3:51 PM EST Dysuria documented in this encounter Results * (ABNORMAL) URINALYSIS, REFLEX TO CULTURE (12/27/2023 3:51 PM EST) Color, Urine Yellow Colorless, Light Yellow, Yellow, Dark Yellow 12/28/2023 12:12 AM EST [facility] Clarity, Urine Clear Clear 12/28/2023 12:12 AM EST [facility] Glucose, Urine Negative Negative mg/dL 12/28/2023 12:12 AM EST [facility] Bilirubin, Urine Negative Negative 12/28/2023 12:12 AM EST [facility] Ketone, Urine Negative Negative mg/dL 12/28/2023 12:12 AM EST [facility] Specific Beverly, Urine 1.027 1.003 - 1.030 12/28/2023 12:12 AM EST [facility] Blood, Urine Large(A) Negative 12/28/2023 12:12 AM EST [facility] pH, Urine 6.0 5.0 - 7.5 Units 12/28/2023 12:12 AM EST [facility] Protein, Urine Trace(A) Negative mg/dL 12/28/2023 12:12 AM EST [facility] Urobilinogen, Urine Normal Normal mg/dL 12/28/2023 12:12 AM EST [facility] Nitrite, Urine Negative Negative 12/28/2023 12:12 AM EST [facility] Esterase, Urine Large(A) Negative 12/28/2023 12:12 AM EST [facility] RBC, Urine 50+(A) 0 - 2 /HPF 12/28/2023 12:12 AM EST [facility] WBC, Urine 30-49(A) 0 - 2 /HPF 12/28/2023 12:12 AM EST [facility] Bacteria, Urine 0-25 0 - 25 /HPF 12/28/2023 12:12 AM EST [facility] Hyaline, Cast, Urine 5-9(A) None /LPF 12/28/2023 12:12 AM EST [facility] Culture, Urine 12/28/2023 12:12 AM EST [facility] Comment:Quantitative urine c ulture to be performed Urine Urine specimen obtained by clean catch procedure / Unknown Non-blood Collection / Unknown 12/27/2023 3:51 PM EST 12/27/2023 5:09 PM EST Simi BROWN LAB URINE [facility] [address] [place] [address] documented in this encounter Visit Diagnoses Diagnosis HTN, goal below 140/90- Primary Unspecified essential hypertension Coronary artery disease involving clark's point coronary artery of clark's point heart without angina pectoris Paroxysmal A-fib (HCC) Atrial fibrillation Multiple sclerosis (HCC) Multiple sclerosis Debility Debility, unspecified Dysuria Anemia of chronic disease Anemia of other chronic disease Neurogenic bladder Neurogenic bladder, NOS Stasis dermatitis of both legs Varicose veins of lower extremities with inflammation Depression with anxiety Dysthymic disorder documented in this encounter Advance Directives Latest [...] and were consensually agreed upon. Care Teams Digitizer Relationship Specialty Start Date End Date Simi Hernandez CRNP [address] [place] [address] PCP - General Nurse Practitioner 10/05/22 documented as of this encounter"
--- OUTSIDE RECORDS SUMMARY | 2024-02-03 21:29 | External Medical Summary | Summary of Care ---
Author Name Unknown Organization [facility] Address [address] [place] [address] Phone [phone] Care Team Providers Care Placement Assistant Name Role Phone Simi Hernandez Tami BROWN Primary Care Provider Reason for Visit * Reason Comments Follow Up Pt has multiple spot s on her face she would like evaluated Encounter Details Date Type Department Care Team (Late st Contact Info) Description 12/30/2023 10:00 AM EST Office Visit Dermatology [facility] [address] [place] [address] Germán Matias MD [address] [place] [phone] Skin tumor*; AK (actinic keratosis); Hx [...] Debility 11/05/2022 Coronary artery disease invo lving pamunkey coronary artery of pam[place] heart without angina pectoris 11/05/2022 Medical home [...] mRNA, LNP-s, No Pre serve, 2-Dose Series ([employer]) 04/18/2022,11/12/2021,01/28/2021,01/14 PPD 06/05/2018 Pneumococcal Conjugate Vacc, 13 [...] up. Numerous nonmelanoma skin cancer. Lesions cheek gnosticism and forehead - the latter resolved between [...] cheek below eye Smooth pink papule rt gnosticism Assessment: / Plan: 1. Rule out basal [...] Health Care as noted on problem list. [facility] is a way you can talk to [...] 01/02/2024 2:30 PM EST Imaging Vascular Lab, [facility] 2nd Floor, [address] [id number] 01/05/2024 9:30 AM EST Laboratory Lab Mobile Phlebotomy [facility] [address] [place] [address] [facility], [facility] Mobile Home Draw [address] [place] [address] 01/27/2024 2:30 PM EST Office Visit Hematology/Oncology [facility] [address] [facility] [place] [address] Mana Denton CRNP [address] [place] [address] 02/15/2024 1:40 PM EDT Office Visit Family Practice [facility] [address] [facility] [place] [address] Simi Hernandez CRNP [address] [facility] [place] [address] 05/24/2024 1:40 PM EDT Office Visit Dermatology [facility] [address] [facility] [place] [address] Lisa Garcia PA-C [address] [facility] [place] [phone] 06/25/2024 3:30 PM EDT Cardiac Studies Cardiac Studies, [facility] [address] [facility] [place] [address] Pending Results Name Type Priority Associated Diagnoses [...] D LEVEL ONCE IN A LIFETIME-USE SMARTSET# [id number] Completed 01/17/2023, 04/05/2022, 04/28/2021, Additional history exists [...] and were consensually agreed upon. Care Teams Placement Assistant Relationship Specialty Start Date End Date Simi Hernandez CRNP [address] [place] [address] PCP - General Nurse Practitioner 10/05/22 documented as of this encounter
--- OUTSIDE RECORDS SUMMARY | 2024-02-03 21:29 | External Medical Summary ---
Author Name Unknown Address Unknown Organization K01:LAB[facility]ATORY [address] [address] Laboratory Report Ordering Provider Test Date Status GATITO ANDREA 12/27/2023 15:51:16 Final <10,000 colonies/ml mixed no rmal carmel Observation Date Value Abnormality Reference (Units ) Status Bacteria identified in Specimen by Culture 12/27/2023 15:51:16 [id number]^ESCHE RICHIA COLI Abnormal Final 10,000 to 100,000 colonies/m L Escherichia coli Bacteria identified in Specimen by Culture 12/27/2023 15:51:16 [id number]^KLEBSIELLA PNEUMONIAE Abnormal Final 10,000 to 100,000 colonies/m L Klebsiella pneumoniae Performing Location LABORATORY [address] [address] Ordering Provider Test Date Status GATITO ANDREA 12/27/2023 15:51:16 Final Observation Date Value Abnormality Reference (Units ) Status Ampicillin 12/27/2023 15:51:16 <=2 Susceptible Final Cefazolin 12/27/2023 15:51:16 <=4 Susceptible Final Cefepime susceptibility 12/27/2023 15:51:16 <=1 Susceptible Final Ceftriaxone suceptibility 12/27/2023 15:51:16 <=1 Susceptible Final Ciprofloxacin 12/27/2023 15:51:16 <=0.25 Susceptible Final Due to serious side effects, the FDA has advised against using Ciprofloxacin to treat uncomplicated UTIs and respiratory tract infections unless there are no alternative treatment options. Gentamicin susceptibility 12/27/2023 15:51:16 <=1 Susc eptible Final Nitrofurantoin susceptibility 12/27/2023 15:51:16 <=16 Susceptible Final Piperacillin + Tazobactamsusceptibility 12/27/2023 15:51:16 <=4 Susceptible Final TMP-SMZ susceptibility 12/27/2023 15:51:16 <=20 Suscept ible Final Performing Location [facility] [place] [address] [place] [id number] Ordering Provider Test Date Status GATITO ANDREA 12/27/2023 15:51:16 Final Observation Date Value Abnormality Reference (Units ) Status Ampicillin + Sulbactam 12/27/2023 15:51:16 16 Intermediate Final Cefazolin 12/27/2023 15:51:16 <=4 Susceptible Final Cefepime susceptibility 12/27/2023 15:51:16 <=1 Susceptible Final cefOXitin [Susceptibility] 12/27/2023 15:51:16 >=64 Resistant Final Ceftriaxone suceptibility 12/27/2023 15:51:16 <=1 Susceptible Final Ciprofloxacin 12/27/2023 15:51:16 <=0.25 Susceptible Final Due to serious side effects, the FDA has advised against using Ciprofloxacin to treat uncomplicated UTIs and respiratory tract infections unless there are no alternative treatment options. Gentamicin susceptibility 12/27/2023 15:51:16 <=1 Susc eptible Final Levofloxacin susceptibility 12/27/2023 15:51:16 1 In termediate Final Due to serious side effects, the FDA has advised against using Levofloxacin to treat uncomplicated UTIs and respiratory tract infections unless there are no alternative treatment options. Nitrofurantoin susceptibility 12/27/2023 15:51:16 128 Resistant Final Piperacillin + Tazobactamsusceptibility 12/27/2023 15:51:16 16 Susceptible Final Extended infusion Piperacill in/Tazobactam is required due to elevated STEPHEN for patients with CrCl greater than 40mL/min. For severe infections, discuss with Infectious Diseases for alternative therapy. TMP-SMZ susceptibility 12/27/2023 15:51:16 <=20 Suscept ible Final Test: Culture, Urine, Quanti tative
Specimen Source: Urine, Clean Catch
Specimen Type: Urine
Specimen Date: 12/27/2023 3:51 PM
Result Date: 01/01/2024 5:29 PM
Result Status: Final result
Abnormal: Yes
Resulting Lab: [facility]AT[facility]
[address]
[place] [id number]

CULTURE

10,000 to 100,000 colonies/mL Escherichia coli (Abnormal)

10,000 to 100,000 colonies/mL Klebsiella pneumoniae (Abnormal)

<10,000 colonies/ml mixed normal carmel

SUSCEPTIBILITY

Escherichia coli
METHOD MICROBROTH DILUTIONS

AMPICILLIN <=2 Susceptible
AMPICILLIN/SULBACTAM
CEFAZOLIN <=4 Susceptible
CEFEPIME <=1 Susceptible
CEFOXITIN
CEFTRIAXONE <=1 Susceptible
CIPROFLOXACIN <=0.25 Susceptible [1]
GENTAMICIN <=1 Susceptible
LEVOFLOXACIN
NITROFURANTOIN <=16 Susceptible
PIPERACILLIN TAZOBACTAM <=4 Susceptible
TRIMETH/SULFAMETHOXAZOLE <=20 Susceptible

Klebsiella pneumoniae
METHOD MICROBROTH DILUTIONS

AMPICILLIN
AMPICILLIN/SULBACTAM 16 Intermediate
CEFAZOLIN <=4 Susceptible
CEFEPIME <=1 Susceptible
CEFOXITIN >=64 Resistant
CEFTRIAXONE <=1 Susceptible
CIPROFLOXACIN <=0.25 Susceptible [2]
GENTAMICIN <=1 Susceptible
LEVOFLOXACIN 1 Intermediate [3]
NITROFURANTOIN 128 Resistant
PIPERACILLIN TAZOBACTAM 16 Susceptible - Dose Dependent [4]
TRIMETH/SULFAMETHOXAZOLE <=20 Susceptible

[1] Due to serious side effects, the FDA has advised against using
Ciprofloxacin to treat uncomplicated UTIs and respiratory tract infections
unless there are no alternative treatment options.

[2] Due to serious side effects, the FDA has advised against using
Ciprofloxacin to treat uncomplicated UTIs and respiratory tract infections
unless there are no alternative treatment options.

[3] Due to serious side effects, the FDA has advised against using
Levofloxacin to treat uncomplicated UTIs and respiratory tract infections
unless there are no alternative treatment options.

[4] Extended infusion Piperacillin/Tazobactam is required due to elevated
STEPHEN for patients with CrCl greater than 40mL/min. For severe infections,
discuss with Infectious Diseases for alternative therapy.

null Performing Location LAB[facility]AT[facility] [place] [address] [facility] [address]
--- OUTSIDE RECORDS SUMMARY | 2024-02-03 21:29 | External Medical Summary ---
Author Name Unknown Address Unknown Organization K01:LAB[facility]ATORY [facility] [place] - [address] [facility] [address] Laboratory Report Ordering Provider Test Date Status GATITO ANDREA 12/27/2023 15:51:16 Final Observation Date Value Abnormality Reference (Units ) Status Color of Urine by Auto 12/27/2023 15:51:16 Yellow Colorless, Light Yellow, Yellow, Dark Yellow Final Clarity, Urine 12/27/2023 15:51:16 Clear Clear Final Glucose [Mass/volume] in Urine by Automated test strip 12/27/2023 15:51:16 Negative Negative (mg/dL) Final Bilirubin.total [Presence] in Urine by Automated test strip 12/27/2023 15:51:16 Negative Negative Final Ketones [Mass/volume] in Urine by Automated test strip 12/27/2023 15:51:16 Negative Negative (mg/dL) Final Specific gravity, Urine 12/27/2023 15:51:16 1.027 1.003-1.030 Final Hemoglobin [Presence] in Urine by Automated test strip 12/27/2023 15:51:16 Large Abnormal Negative Final pH, Urine 12/27/2023 15:51:16 6.0 5.0-7.5 (Units) Final Protein [Mass/volume] in Urine by Automated test strip 12/27/2023 15:51:16 Trace Abnormal Negative (mg/dL) Final Urobilinogen [Mass/volume] in Urine by Automated test strip 12/27/2023 15:51:16 Normal Normal (mg/dL) Final Nitrite [Presence] in Urine by Automated test strip 12/27/2023 15:51:16 Negative Negative Final Leukocyte esterase [Presence] in Urine by Automated test strip 12/27/2023 15:51:16 Large Abnormal Negative Final RBC, Urine 12/27/2023 15:51:16 50+ Abnormal 0-2 (/HPF) Final WBC, Urine 12/27/2023 15:51:16 30-49 Abnormal 0-2 (/HPF) Final Bacteria [#/area] in Urine sediment by Microscopy high power field 12/27/2023 15:51:16 0-25 0-25 (/HPF) Final Hyaline casts, Urine 12/27/2023 15:51:16 5-9 Abnormal None (/LPF) Final CULTURE, URINE - [facility] 12/27/2023 15:51:16 Final Quantitative urine culture t o be performed Performing Location LABORATORY [facility] [place] - [address] [facility] [address]
[2024-02-03 21:54] LABS: A calco-baum cmplx NotReported Not Detected (NotDetected); Bact fragilis Not Reported Not Detected (NotDetected); Blood Culture Id Panel See PCR Comment (NotDetected); C auris Not Reported Not Detected (NotDetected); Calbicans Not Reported Not Detected (NotDetected); Candida glabrata Not Reported Not Detected (NotDetected); Candida krusei Not Reported Not Detected (NotDetected); Cneoformans/gatti Not Reported Not Detected (NotDetected); Cparapsilosis Not Reported Not Detected (NotDetected); E cloacae compx Not Reported Not Detected (NotDetected); Efaecalis Not Reported DETECTED (NotDetected); Efaecium Not Reported Not Detected (NotDetected); Enterobacterales Not Reported Not Detected (NotDetected); Enterococcus faecalis DETECTED (NotDetected); Escherichia coli Not Reported Not Detected (NotDetected); H influenzae Not Reported Not Detected (NotDetected); K aerogenes Not Reported Not Detected (NotDetected); Koxytoca Not Reported Not Detected (NotDetected); Kpneumoniae grp Not Reported Not Detected (NotDetected); Lmonocyt Not Reported Not Detected (NotDetected); N meningitidis Not Reported Not Detected (NotDetected); P aeruginosa Not Reported Not Detected (NotDetected); Proteus spp Not Reported Not Detected (NotDetected); Salmonella spp Not Reported Not Detected (NotDetected); Smarcescens Not Reported Not Detected (NotDetected); Staph lugdunensis Not Reported Not Detected (NotDetected); Staph spp. Not Reported Not Detected (NotDetected); Staphaureus Not Reported Not Detected (NotDetected); Staphepi Not Reported Not Detected (NotDetected); Stenmaltophilia Not Reported Not Detected (NotDetected); Strep agal(GrpB) Not Reported DETECTED (NotDetected); Strep pneum Not Reported Not Detected (NotDetected); Strep pyog (GrpA) Not Reported Not Detected (NotDetected); Strep spp Not Reported DETECTED (NotDetected); Streptococcus spp DETECTED (NotDetected); VanAB Resistant Gene VRE Not Detected (NotDetected)
--- NOTE | 2024-02-03 21:59 | Communication Note ---
Date of Service: February 03, 2024 SBP noted to be 70s as per RN. Patient comfortable as per RN. Recurrent fever Initial CS gram-positive cocci in chains. AP Hypotension Septicemia from RLE cellulitis (initial CS gram-positive cocci in chains) diarrhea rule out C. difficile Recurrent fever despite vancomycin and cefepime Rx. IV albumin bolus given congestion on x-ray Hold metoprolol for now Follow final CS results, continue cefepime DC vancomycin Follow stool C. difficile, Flagyl 1 dose now for presumptive C. difficile given sepsis, oral vancomycin if stool C. difficile positive
[2024-02-03 22:06] LABS: Streptococcus agalactiae(GrpB) DETECTED (NotDetected)
[2024-02-04] MEDS: CEFEPIME 2,000 MG in SYRINGE 0 ML IV SCH (00:53)
[2024-02-04] MEDS: metroNIDAZOLE 500 MG/100 ML BAG IV STA (01:53)
[2024-02-04] MEDS: ACETAMINOPHEN 325 MG TAB PO STA (01:56)
[2024-02-04 06:58] LABS: Hemoglobin 8.2 g/dl (12.0-16.0); Mean Corpuscular Hgb Conc 31.5 g/dL (32.0-36.0); Mean Corpuscular Volume 82.5 fL (80.0-100.0); Mean Platelet Volume 11.2 fL (9.4-12.4); Platelet Count 217 K/uL (130-400); RDW Coefficient of Variation 17.9 % (11.5-14.5); RDW Standard Deviation 53.9 fL (36.4-46.3); Red Blood Count 3.15 M/uL (4.20-5.40); White Blood Count 16.27 K/ul (4.8-10.8)
[2024-02-04 07:25] LABS: Basophils # (auto) 0.02 K/uL (0.00-0.20); Basophils % (auto) 0.1 %; Immature Granulocytes # (auto) 0.08 K/uL (0.01-0.20); Immature Granulocytes % (auto) 0.5 %; Lymphocytes # (auto) 0.42 K/uL (1.20-3.40); Lymphocytes % (auto) 2.6 %; Monocytes # (auto) 0.76 K/uL (0.11-0.59); Monocytes % (auto) 4.7 %; Neutrophils # (auto) 14.99 K/uL (1.40-6.50); Neutrophils % (auto) 92.1 %; Ovalocytes 1+; Polychromasia 1+; Toxic Vacuolation 1+
[2024-02-04 07:27] LABS: BUN Creatinine Ratio 19.2 (10-20); Calcium 7.7 mg/dl (8.6-10.3); Chol HDL Ratio 1.9 (0-5); Creatinine Clr Calc Pharmacy 49.7 ml/min; Est GFR (African American) 66.4 ml/min; Est GFR (Non-African American) 57.3 ml/min; Magnesium 1.8 mg/dl (1.7-2.4); Potassium 3.8 mmol/L (3.5-5.1)
[2024-02-04] MEDS ORDERED: VANCOMYCIN HCL 1,250 MG in SODIUM CHLORIDE 0.9% 250 ML IV SCH (08:00)
--- NOTE | 2024-02-04 08:46 | Electrocardiogram Report ---
Test Reason : Blood Pressure : / mmHG Vent. Rate : 098 BPM Atrial Rate : 098 BPM P-R Int : 160 ms QRS Dur : 062 ms QT Int : 386 ms P-R-T Axes : 042 009 040 degrees QTc Int : 492 ms Poor data quality, interpretation may be adversely affected Normal sinus rhythm Low voltage QRS Prolonged QT Abnormal ECG When compared with ECG of 03-FEB-2024 13:57, Criteria for Septal infarct are no longer Present Confirmed by Nvaneet Sen ([id number]) on 02/04/2024 8:46:13 AM Referred By: REFERRED SELF Confirmed By:Navneet Sen
[2024-02-04] MEDS ORDERED: predniSONE 10 MG TABLET PO SCH (09:00)
[2024-02-04] MEDS ORDERED: ATORVASTATIN 20 MG TAB PO SCH (09:00)
[2024-02-04] MEDS: OXYBUTYNIN CHLORIDE XL 5 MG TABCR PO SCH (10:29)
--- NOTE | 2024-02-04 10:31 | Cardiology Progress Note ---
Date of Service February 04, 2024 Assessment & Plan (1) Myocardial strain: (2) Tachycardia: Plan * 73 year old female with h/o multiple sclerosis who is mostly wheel chair bound, walks very short distances with walker at home present with symptoms and findings consistent with sepsis , with possible urine, skin, or recurrent osteomyelitis as potential sources. 1/2 blood cultures obtained on 02/02 notable for Group B strep. * Patient with findings suggestive of myocardial strain , supply / demand mismatch in setting of sepsis. Underwent coronary angiography in 2020 with similar troponin elevation then, findings of 50% ostial stenosis of LAD and not significant disease otherwise, for which medical management recommended. * EKG 02/03/23 reveals SR at 99 bpm without changes to suggest ischemia. Poor R wave progression noted earlier this admission, but has been noted in the past and is likely due to lead positioning. Echo this admission with hyperdynamic LV systolic function, LVEF > 70%, murmur correlates with mild aortic stenosis. * Episodes of PSVT noted on telemetry, with h/o PSVT and PAF. * Transient hypotension overnight with SBP in 70s, now improved. Will advance diet. No indication for cardiac procedure at present. Continue broad spectrum antibiotics. Statin on hold due to Daptomycin therapy. Agree with stress dose steroids. Continue Eliquis with h/o DVT and PAF in past. Agree with plan for cardiac MRI. May need repeat blood cultures, differ timing to primary team. Metoprolol tartrate 12.5 mg BID held this am for parameters. Since BP improved with have nurses administer. I spent a total of 45 minutes on the date of service in preparation, delivery, and documentation of the care provided to this patient, excluding any time spent in the performance of separately billed services. Admission and Anticipated Discharge Date Admission Date: February 03, 2024 Subjective Patient seen in follow up. Daughter at the bedside. Pt comfortable. Denies chest pain or shortness of breath. Has brief subjective episodes of feeling "heart racing". Telemetry reveals SR in the 90s with occasional runs of SVT lasting up to 90s seconds. Review of Systems Review of Systems: All systems reviewed & are unremarkable except as noted in HPI & below Physical Exam Constitutional: + ill appearing and + frail appearing; n o acute distress Respiratory: normal respiratory effort, lungs clear to auscultation Cardiovascular: Rate/Rhythm: regular rhythm and + tachycardic Heart Sounds: + murmur (2/6 systolic murmur ) Extremities: + edema (left lower leg and left pedal edema ) Gastrointestinal (Abdomen): normal bowel sounds, soft, nontender, no hepatosplenomegaly Skin: Let anterior resendez erythema with skin wound (dressed) Neurologic: Awake, conversant. Follows commands with no focal deficits Results & Data Vital Signs (Past 12 Hours) Vital Signs Temp Pulse Resp BP Pulse Ox O2 Del Method 02/04/24 07:52 36.9 C 103 H 21 117/74 94 Room Air 02/04/24 04:50 Room Air 02/04/24 03:15 37.4 C 96 H 18 107/67 95 Room Air 02/03/24 23:42 37.8 C H 104 H 22 97/61 L 92 Room Air Laboratory Results Cardiac Enzymes 02/03/24 02/03/24 02/03/24 Range/Units 10:40 13:02 18:49 AST 29 (13-39) U/L Troponin I High Sens 1140.0 H* 1375.9 H* D 1760.5 H* D (0-14) pg/ml 02/04/24 Range/Units 00:47 AST (13-39) U/L Troponin I High Sens 1833.0 H* (0-14) pg/ml Lipids 02/04/24 Range/Units 06:13 Triglycerides 72 (0-150) mg/dl Cholesterol 121 (0-200) mg/dl HDL Cholesterol 64 mg/dl Cholesterol/HDL Ratio 1.9 (0-5) LDL: 43 mg/dl CBC 02/03/24 02/04/24 Range/Units 10:40 06:13 WBC 19.00 H 16.27 H (4.8-10.8) K/ul RBC 3.60 L 3.15 L (4.20-5.40) M/uL Hgb 9.6 L 8.2 L (12.0-16.0) g/dl Hct 29.7 L 26.0 L (37.0-47.0) % Plt Count 243 217 (130-400) K/uL Neut # (Auto) 17.26 H 14.99 H (1.40-6.50) K/uL Lymph # (Auto) 0.30 L 0.42 L (1.20-3.40) K/uL [place] # (Auto) 1.26 H 0.76 H (0.11-0.59) K/uL Eos # (Auto) 0.00 0.00 (0.00-0.50) K/uL Baso # (Auto) 0.05 0.02 (0.00-0.20) K/uL Comprehensive Metabolic Panel 02/03/24 02/04/24 Range/Units 10:40 06:13 Sodium 137 138 (136-145) mmol/L Potassium 3.6 3.8 (3.5-5.1) mmol/L Chloride 101 106 (98-107) mmol/L Carbon Dioxide 28 25 (21-32) mmol/L BUN 21 19 (6-23) mg/dl Creatinine 0.97 0.99 (0.6-1.2) mg/dl Glucose 87 93 (70-99(Fasting)) mg/dl Calcium 8.8 7.7 L (8.6-10.3) mg/dl Direct Bilirubin 0.1 (0-0.2) mg/dl AST 29 (13-39) U/L ALT 22 (7-52) U/L Alkaline Phosphatase 48 (34-104) U/L Total Protein 6.2 (6.0-8.3) gm/dl Albumin 3.7 (3.4-5.0) gm/dl
[2024-02-04] MEDS: ESCITALOPRAM OXALATE 20 MG TAB PO SCH (10:38)
[2024-02-04] MEDS: CHOLECALCIFEROL 25 MCG (1000 UNITS) TAB PO SCH (10:39)
[2024-02-04] MEDS: PANTOprazole 40 MG TAB PO SCH (10:41)
[2024-02-04] MEDS ORDERED: DAPTOmycin 225 MG in SYRINGE 0 ML IV SCH (11:00)
[2024-02-04] MEDS: METOPROLOL TARTRATE 25 MG TAB PO SCH (11:06)
[2024-02-04] MEDS: SODIUM CHLORIDE 0.9% 500 ML IV ONE (15:55)
[2024-02-04] MEDS: MIDODRINE HCL 2.5 MG TAB PO SCH (16:48)
[2024-02-04] MEDS: DAPTOmycin 450 MG in SYRINGE 0 ML IV SCH (16:49)
--- NOTE | 2024-02-04 23:16 | Hospitalist Progress Note ---
Date of Service February 04, 2024 Assessment & Plan (1) Sepsis: (2) UTI (urinary tract infection): (3) Cellulitis of left lower leg: (4) Elevated troponin: (5) Diarrhea: (6) Hypomagnesemia: (7) Chronic refractory osteomyelitis of ankle: (8) CAD (coronary artery disease): (9) History of pulmonary embolism: (10) S/P IVC filter: (11) Paroxysmal atrial fibrillation: (12) Multiple sclerosis: (13) Neurogenic bladder: (14) Chronic anemia: (15) Rosacea: (16) Breast cancer: Plan Patient is 73-year-old female with PMH HTN, CAD, history NSTEMI, paroxysmal atrial fibrillation, history of PE, DVT, chronic anticoagulation on Eliquis, MS, neurogenic bladder requiring self catheterization, chronic anemia, rosacea, chronic osteomyelitis right lower extremity, history of breast cancer who presented to ER with complaint of tactile fevers, generalized weakness, diarrhea x 1 day. Sepsis Complicated UTI LLE Cellulitis Sepsis. Possible source UTI, possible LLE cellulitis, chronic R ankle wound In ER T: 36.2 C, P: 102, RR: 16, BP 117/76, 96% on room air. WBC: 19, lactate: 1.8, Procalcitonin: 9 CXR: Cardiomegaly with pulmonary vascular prominence Arterial lower extremity Doppler: There is no sonographic evidence of high-grade stenosis or focal vessel cut off seen throughout the arteries of the right or left lower extremity. In ER given 1 L NSS, cefepime, daptomycin. Reevaluation. Patient awake, alert and oriented x 3. BP 115/75, P: 112, R: 20, 94% on room air. Brisk capillary refill. Lungs clear to auscultation, sinus tachycardia. Blood culturex1 growing Group B Beta strep R ankle wound growing gram positive cocci Biofire showing E faecalis + and strep + Urine culture with NGTD Cefepime, vancomycin switched to Cefepime with Daptomycin Bolus with gentle IVF Consider CT abdomen/pelvis Stool studies, C-diff if recurrent diarrhea Wound nurse consult Septic Shock Pt with persistently low blood pressure in setting of above Receiving cautious fluid boluses On stress IV hydrocortisone 50mg q6h Midodrine 5mg TID started Consider Forinef for additional support If still low, will need pressor support in the ICU Continue to monitor Elevated troponin hs-Troponin:1140-->1375--->1833 CK: 369 Initial EKG sinus rhythm, rate 99, Q waves septal leads repeat EKG sinus tachycardia, rate 116, Q waves septal leads. Q waves septal leads seen in prior EKGs per chart review Patient without chest pain, shortness of breath, dizziness, palpitations, dizziness Likely Type II NSTEMI Echo with EF> 70%, Grade I diastolic dysfunction, mild aortic stenosis Continue metoprolol, atorvastatin Continue Eliquis Cardiology consulted appreciate recs -no procedure -cardiac MRI -continue metoprolol Diarrhea 2 episodes diarrhea day before admission Denies abdominal pain. No further diarrhea today If recurrent diarrhea plan to obtain stool culture, C. difficile Consider CT abdomen pelvis Electrolyte Abnormalities: -Hypomagnesemia: Magnesium 1.5 on admission. Replete as needed Chronic refractory osteomyelitis of ankle History of chronic osteomyelitis right ankle Right ankle x-ray: No evidence osteomyelitis Chronic right ankle ulcer R ankle wound growing gram positive cocci, follow cx Wound nurse consult On Daptomycin as noted above Elevated CK Rhabdo Ck elevated at 239 IV hydration as above CAD (coronary artery disease) History nonocclusive CAD. History NSTEMI Workup as above Continue metoprolol tartrate with holding parameters, statin History of pulmonary embolism S/P IVC filter History of PE. IVC filter in place. History DVT left lower extremity in 09/2023. Continue Eliquis. Patient denies any missed doses Paroxysmal atrial fibrillation Anticoagulated on Eliquis Current sinus tachycardia Continue metoprolol tartrate, Eliquis Multiple sclerosis Neurogenic bladder Self catheterization at home Has baclofen pump On Aubagio, prednisone, tizanidine Zuñiga catheter Pain management consult in setting of need for MRI, consider po baclofen dose around imaging Chronic anemia Hgb: 9.6. Baseline in 9's Monitor H&H Rosacea On chronic doxycycline. Will hold doxycycline for now as on above antibiotics Breast cancer History left breast cancer s/p surgery, radiation Diet: DVT Prophylaxis: On Eliquis Full Code as per discussion with pt Dispo: PT/OT ordered Admission and Anticipated Discharge Date Admission Date: February 03, 2024 Subjective Pt was seen multiple times. Reports that her BP was very low. However pt asymptomatic, talking, notes no dizziness but occasional fluttering in her chest. Wanted to eat. Review of Systems Review of Systems: All systems reviewed & are unremarkable except as noted in Subjective Physical Exam Physical Exam: General: Alert, oriented. No acute distress Skin: LLE with erythema to the leg and foot Psych: Appropriate mood and affect Neuro: difficulty with movements in the bed HEENT: NC/AT CV: RRR, Normal s1, s2. No murmurs appreciated Resp: Breath sounds clear bilaterally, no increased effort of breathing. Abdomen: Soft, nontender, nondistended. Extremities: edema in lower extremities bilaterally. Results & Data Results & Data Vital Signs (Past 12 Hours) Vital Signs Temp Pulse Resp BP Pulse Ox O2 Del Method 02/04/24 07:52 36.9 C 103 H 21 117/74 94 Room Air 02/04/24 04:50 Room Air 02/04/24 03:15 37.4 C 96 H 18 107/67 95 Room Air 02/03/24 23:42 37.8 C H 104 H 22 97/61 L 92 Room Air (1) Sepsis Sepsis acute organ dysfunction status: unspecified Sepsis type: sepsis due to unspecified organism Qualified Code(s): A41.9 - Sepsis, unspecified organism (2) UTI (urinary tract infection) Hematuria presence: without hematuria Urinary tract infection type: acute cystitis Qualified Code(s): N30.00 - Acute cystitis without hematuria
[2024-02-05 05:52] LABS: Mean Corpuscular Hgb Conc 30.8 g/dL (32.0-36.0); Mean Corpuscular Volume 84.4 fL (80.0-100.0); Mean Platelet Volume 11.1 fL (9.4-12.4); Platelet Count 200 K/uL (130-400); RDW Coefficient of Variation 17.9 % (11.5-14.5); RDW Standard Deviation 54.6 fL (36.4-46.3); Red Blood Count 3.08 M/uL (4.20-5.40); White Blood Count 16.83 K/ul (4.8-10.8)
[2024-02-05 05:56] LABS: Albumin Globulin Ratio 1.2 (0.9-2); Albumin Level 3.1 gm/dl (3.4-5.0); BUN Creatinine Ratio 26.3 (10-20); Bilirubin,Total 0.5 mg/dl (0.2-1.0); Creatinine Clr Calc Pharmacy 51.8 ml/min; Est GFR (African American) 69.8 ml/min; Est GFR (Non-African American) 60.3 ml/min; Globulin 2.5 gm/dl (2.5-4.0); Phosphorus 2.3 mg/dl (2.5-4.9); Potassium 3.9 mmol/L (3.5-5.1); Total Protein 5.6 gm/dl (6.0-8.3)
[2024-02-05 06:34] LABS: Basophils # (auto) 0.03 K/uL (0.00-0.20); Basophils % (auto) 0.2 %; Immature Granulocytes # (auto) 0.13 K/uL (0.01-0.20); Immature Granulocytes % (auto) 0.8 %; Lymphocytes # (auto) 0.39 K/uL (1.20-3.40); Lymphocytes % (auto) 2.3 %; Monocytes # (auto) 0.86 K/uL (0.11-0.59); Monocytes % (auto) 5.1 %; Neutrophils # (auto) 15.42 K/uL (1.40-6.50); Neutrophils % (auto) 91.6 %; Rouleaux 1+; Toxic Vacuolation 1+
[2024-02-05] MEDS ORDERED: POTASSIUM PHOS 3 MMOL/1 ML INFUSION IV STA (08:46)
[2024-02-05] MEDS: POTASSIUM PHOSPHATE 15 MMOL in SODIUM CHLORIDE 0.9% 250 ML IV ONE (09:21)
[2024-02-05] MEDS: OPTIRAY 320 100ml IV ONE (11:20)
[2024-02-05 12:11] LABS: A calco-baum cmplx NotReported Not Detected (NotDetected); Bact fragilis Not Reported Not Detected (NotDetected); Blood Culture Id Panel See PCR Comment (NotDetected); C auris Not Reported Not Detected (NotDetected); Calbicans Not Reported DETECTED (NotDetected); Candida glabrata Not Reported Not Detected (NotDetected); Candida krusei Not Reported Not Detected (NotDetected); Cneoformans/gatti Not Reported Not Detected (NotDetected); Cparapsilosis Not Reported Not Detected (NotDetected); E cloacae compx Not Reported Not Detected (NotDetected); Efaecalis Not Reported Not Detected (NotDetected); Efaecium Not Reported Not Detected (NotDetected); Enterobacterales Not Reported Not Detected (NotDetected); Escherichia coli Not Reported Not Detected (NotDetected); H influenzae Not Reported Not Detected (NotDetected); K aerogenes Not Reported Not Detected (NotDetected); Koxytoca Not Reported Not Detected (NotDetected); Kpneumoniae grp Not Reported Not Detected (NotDetected); Lmonocyt Not Reported Not Detected (NotDetected); N meningitidis Not Reported Not Detected (NotDetected); P aeruginosa Not Reported Not Detected (NotDetected); Proteus spp Not Reported Not Detected (NotDetected); Salmonella spp Not Reported Not Detected (NotDetected); Smarcescens Not Reported Not Detected (NotDetected); Staph lugdunensis Not Reported Not Detected (NotDetected); Staph spp. Not Reported Not Detected (NotDetected); Staphaureus Not Reported Not Detected (NotDetected); Staphepi Not Reported Not Detected (NotDetected); Stenmaltophilia Not Reported Not Detected (NotDetected); Strep agal(GrpB) Not Reported Not Detected (NotDetected); Strep pneum Not Reported Not Detected (NotDetected); Strep pyog (GrpA) Not Reported Not Detected (NotDetected); Strep spp Not Reported Not Detected (NotDetected)
--- NOTE | 2024-02-05 12:11 | Cardiology Progress Note ---
Date of Service February 05, 2024 Assessment & Plan (1) Myocardial strain: (2) Tachycardia: (3) Sepsis: Plan * 73 year old female with h/o multiple sclerosis who is mostly wheel chair bound, walks very short distances with walker at home present with symptoms and findings consistent with sepsis , with possible urine, skin, or recurrent osteomyelitis as potential sources. 1/2 blood cultures obtained on 02/02 notable for Group B strep. Repeat cultures drawn 02/04/2024 and pending at present. Wound culture notable for Enterococcus faecalis * Patient with findings suggestive of myocardial strain , supply / demand mismatch in setting of sepsis. Underwent coronary angiography in 2020 with similar troponin elevation then, findings of 50% ostial stenosis of LAD and no significant disease otherwise, for which medical management recommended. * EKG 02/03/23 reveals SR at 99 bpm without changes to suggest ischemia. Poor R wave progression noted earlier this admission, but has been noted in the past and is likely due to lead positioning. Echo this admission with hyperdynamic LV systolic function, LVEF > 70%, murmur correlates with mild aortic stenosis. * Episodes of PSVT noted on telemetry, with h/o PSVT and PAF. -Recommend ongoing antibiotic therapy for sepsis, question if skin wound of the left lower leg culprit. Erythema and swelling of the left lower extremity and foot slightly improved 02/05/2024 compared to the day before -Agree with fluid resuscitation as necessary, midodrine for blood pressure support. Will try to continue metoprolol as tolerated to prevent atrial arrhythmias. Admission and Anticipated Discharge Date Admission Date: February 03, 2024 Subjective Patient seen in cardiology follow-up. Mentating well. Denies chest discomfort, shortness of breath, or subjective palpitations. For the most part, telemetry reveals sinus rhythm in the 70s. Patient however did have an episode of tachycardia on 02/04/2024 that lasted from 1206 to 12:09 PM that appears to be consistent with atrial tachycardia with rate as high as 170s. Patient had intermittent hypotension which has since improved with fluid bolus and midodrine initiated as well. Physical Exam Constitutional: + ill appearing and + frail appearing; n o acute distress Respiratory: normal respiratory effort, lungs clear to auscultation Cardiovascular: Rate/Rhythm: regular rhythm and + tachycardic Heart Sounds: + murmur (2/6 systolic murmur ) Extremities: + edema (left lower leg and left pedal edema ) Gastrointestinal (Abdomen): normal bowel sounds, soft, nontender, no hepatosplenomegaly Results & Data Vital Signs (Past 12 Hours) Vital Signs Temp Pulse Resp BP Pulse Ox O2 Del Method 02/05/24 11:52 36.8 C 87 19 103/69 96 Room Air 02/05/24 07:55 37.3 C 104 H 18 129/78 92 Room Air 02/05/24 03:26 36.7 C 83 16 92/57 L 93 Room Air 02/05/24 00:40 Room Air Laboratory Results Cardiac Enzymes 02/05/24 Range/Units 05:11 AST 46 H (13-39) U/L CBC 02/05/24 Range/Units 05:11 WBC 16.83 H (4.8-10.8) K/ul RBC 3.08 L (4.20-5.40) M/uL Hgb 8.0 L (12.0-16.0) g/dl Hct 26.0 L (37.0-47.0) % Plt Count 200 (130-400) K/uL Neut # (Auto) 15.42 H (1.40-6.50) K/uL Lymph # (Auto) 0.39 L (1.20-3.40) K/uL [place] # (Auto) 0.86 H (0.11-0.59) K/uL Eos # (Auto) 0.00 (0.00-0.50) K/uL Baso # (Auto) 0.03 (0.00-0.20) K/uL Comprehensive Metabolic Panel 02/05/24 Range/Units 05:11 Sodium 136 (136-145) mmol/L Potassium 3.9 (3.5-5.1) mmol/L Chloride 107 (98-107) mmol/L Carbon Dioxide 24 (21-32) mmol/L BUN 25 H (6-23) mg/dl Creatinine 0.95 (0.6-1.2) mg/dl Glucose 125 H (70-99(Fasting)) mg/dl Calcium 8.0 L (8.6-10.3) mg/dl AST 46 H (13-39) U/L ALT 32 (7-52) U/L Alkaline Phosphatase 49 (34-104) U/L Total Protein 5.6 L (6.0-8.3) gm/dl Albumin 3.1 L (3.4-5.0) gm/dl Intake and Output 02/04/24 02/05/24 02/05/24 21:59 06:59 14:59 Intake Total Output Total Balance Intake: IV Sodium Chloride 0.9% 500 ml @ 999 mls/hr IV .Q31M ONE Rx#: [id number] Oral Output: Urine Amount (Catheter) Zuñiga/Indwelling Other: Weight Weight Measurement Method (3) Sepsis Sepsis acute organ dysfunction status: unspecified Sepsis type: sepsis due to unspecified organism Qualified Code(s): A41.9 - Sepsis, unspecified organism
--- NOTE | 2024-02-05 12:20 | CT Scan Report ---
CT abd pelvis IV con only CLINICAL HISTORY: N/V abd pain TECHNIQUE: Helical axial images of the abdomen and pelvis were obtained and displayed. Automated dose lowering techniques and/or adjustment according to patient size were utilized for this exam. This e xam was performed with intravenous contrast. CT DOSE: 574.96 mGy.cm COMPARISON: Comparison is made to CT abdomen pelvis 03/05/2023 FINDINGS: Lower chest: Small bilateral pleural effusions are seen with underlying atelectasis. Liver: Focal fatty changes are noted about the falciform ligament. Gallbladder and biliary tree: No calcified gallstones. Normal caliber wall. No intra- or extrahepatic biliary ductal dilation. Pancreas: Unremarkable, no focal lesions. Spleen: Unremarkable. Adrenals: Unremarkable. Kidneys and ureters: Multifocal renal cysts are seen. Bladder: Zuñiga catheter is seen. Reproductive organs: Unremarkable. Bowel: The appendix is normal. Lymph nodes Retroperitoneal: Unremarkable. Pelvic: Unremarkable. Mesenteric: Unremarkable. Peritoneum: Normal. Vessels: Atherosclerotic calcifications are seen. An IVC filter is seen. Abdominal wall: A fat-containing umbilical hernia is seen. There is a left lower abdominal wall herni a containing fat. Bones: Degenerative changes in the visualized spine. Left hip arthroplasty is seen. Healed fractures are seen in the right hip and ribs. IMPRESSION: 1. No acute abnormality to explain abdominal pain. 2. Diverticulosis is seen without diverticulitis. ACT 112: Negative or not required by law. Electronically signed by: Morales Hanna M.D. 02/05/2024 12:18 PM
[2024-02-05 12:35] LABS: Candida albicans DETECTED (NotDetected)
--- NOTE | 2024-02-05 14:48 | Hospitalist Progress Note ---
Date of Service February 05, 2024 Assessment & Plan (1) Sepsis: (2) UTI (urinary tract infection): (3) Cellulitis of left lower leg: (4) Elevated troponin: (5) Diarrhea: (6) Hypomagnesemia: (7) Chronic refractory osteomyelitis of ankle: (8) CAD (coronary artery disease): (9) History of pulmonary embolism: (10) S/P IVC filter: (11) Paroxysmal atrial fibrillation: (12) Multiple sclerosis: (13) Neurogenic bladder: (14) Chronic anemia: (15) Rosacea: (16) Breast cancer: Plan Patient is 73-year-old female with PMH HTN, CAD, history NSTEMI, paroxysmal atrial fibrillation, history of PE, DVT, chronic anticoagulation on Eliquis, MS, neurogenic bladder requiring self catheterization, chronic anemia, rosacea, chronic osteomyelitis right lower extremity, history of breast cancer who presented to ER with complaint of tactile fevers, generalized weakness, diarrhea x 1 day. Sepsis Complicated UTI LLE Cellulitis Sepsis. Possible source UTI, possible LLE cellulitis, chronic R ankle wound In ER T: 36.2 C, P: 102, RR: 16, BP 117/76, 96% on room air. WBC: 19, lactate: 1.8, Procalcitonin: 9 CXR: Cardiomegaly with pulmonary vascular prominence Arterial lower extremity Doppler: There is no sonographic evidence of high-grade stenosis or focal vessel cut off seen throughout the arteries of the right or left lower extremity. In ER given 1 L NSS, cefepime, daptomycin. Reevaluation. Patient awake, alert and oriented x 3. BP 115/75, P: 112, R: 20, 94% on room air. Brisk capillary refill. Lungs clear to auscultation, sinus tachycardia. Blood culturex1 from 02/02 growing Group B Beta strep Repeat blood Cx on 02/03 pending Blood Cx x2 from 02/02 also growing yeast/uvaldo R ankle wound growing E. faecalis Biofire showing E faecalis + and strep + Urine culture with no significant growth, repeat ordered on 02/04 Cefepime, vancomycin switched to Cefepime with Daptomycin Caspofungin added on 02/04 Bolus with gentle IVF Stool studies, C-diff if recurrent diarrhea Wound nurse consult ID consulted, appreciate recs Bacteremia Fungemia Blood culture x1 from 02/02 growing Group B Beta strep Blood Cx x2 from 02/02 also growing yeast/uvaldo Repeat blood Cx ordered on 02/03 and pending R ankle wound growing E. faecalis Urine culture with no significant growth, repeat ordered on 02/04 Pt with indwelling R IJ port, previously placed for osteomyelitis treatment for RIGHT ankle in Sep 2023 , will likely need removal -General surgery consulted, appreciate recs Pt also with indwelling baclofen pump -Pain management previously consulted, appreciate recs for potential removal Cardiology consulted, appreciate recs -Tentative BALA on 02/05, NPO after midnight Continue IV Cefepime, Daptomycin and Caspofungin ID consulted-appreciate recs Septic Shock Pt with persistently low blood pressure in setting of above Receiving cautious fluid boluses On stress IV hydrocortisone 50mg q6h Midodrine 5mg TID started, continue Consider Florinef for additional support If still low, will need pressor support in the ICU Continue to monitor Elevated troponin hs-Troponin:1140-->1375--->1833 CK: 369 Initial EKG sinus rhythm, rate 99, Q waves septal leads repeat EKG sinus tachycardia, rate 116, Q waves septal leads. Q waves septal leads seen in prior EKGs per chart review Patient without chest pain, shortness of breath, dizziness, palpitations, dizziness Likely Type II NSTEMI Echo with EF> 70%, Grade I diastolic dysfunction, mild aortic stenosis Continue metoprolol, atorvastatin Continue Eliquis Cardiology consulted appreciate recs -no procedure -cardiac MRI -continue metoprolol Diarrhea 2 episodes diarrhea day before admission Denies abdominal pain. No further diarrhea today If recurrent diarrhea plan to obtain stool culture, C. difficile Consider CT abdomen pelvis Electrolyte Abnormalities: -Hypomagnesemia: Magnesium 1.5 on admission. Replete as needed Chronic refractory osteomyelitis of ankle History of chronic osteomyelitis right ankle Right ankle x-ray: No evidence osteomyelitis Chronic right ankle ulcer R ankle wound growing E faecalis Wound nurse consult On Daptomycin as noted above Elevated CK Rhabdo Ck elevated at 239 IV hydration as above CAD (coronary artery disease) History nonocclusive CAD. History NSTEMI Workup as above Continue metoprolol tartrate with holding parameters, statin History of pulmonary embolism S/P IVC filter History of PE. IVC filter in place. History DVT left lower extremity in 09/2023. Continue Eliquis. Patient denies any missed doses Paroxysmal atrial fibrillation Anticoagulated on Eliquis Current sinus tachycardia Continue metoprolol tartrate, Eliquis Multiple sclerosis Neurogenic bladder Self catheterization at home Has baclofen pump On Aubagio, prednisone, tizanidine Zuñiga catheter Pain management consult in setting of need for MRI, consider po baclofen dose around imaging Chronic anemia Hgb: 9.6. Baseline in 9's Monitor H&H Rosacea On chronic doxycycline. Will hold doxycycline for now as on above antibiotics Breast cancer History left breast cancer s/p surgery, radiation Diet: HH DVT Prophylaxis: On Eliquis Full Code as per discussion with pt Dispo: PT/OT ordered Pt's daughter called and updated on 02/05/24. She states she will update her other sisters. Admission and Anticipated Discharge Date Admission Date: February 03, 2024 Subjective Pt was seen multiple times during the day. In the AM, AAOx3, notes that she felt the same. Denying acute concerns. Later pt notified that her blood Cx were growing bacteria and fungus. She was surprised. Code status also discussed with her at another point during the day. She states that she would like everything done ti keep her alive. She was agreeable to her results being discussed with her daughters who were at bedside the day before. Case was discussed with daughter listed in chart (secondary contact as the first did not apple picking supervisor). Review of Systems Review of Systems: All systems reviewed & are unremarkable except as noted in Subjective Physical Exam Physical Exam: General: Alert, oriented. No acute distress Skin: LLE with erythema to the leg and foot Psych: Appropriate mood and affect Neuro: difficulty with movements in the bed HEENT: NC/AT CV: RRR, Normal s1, s2. No murmurs appreciated Resp: Breath sounds clear bilaterally, no increased effort of breathing. Abdomen: Soft, nontender, nondistended. Extremities: edema in lower extremities bilaterally. Results & Data Results & Data Vital Signs (Past 12 Hours) Vital Signs Temp Pulse Resp BP Pulse Ox O2 Del Method 02/05/24 11:52 36.8 C 87 19 103/69 96 Room Air 02/05/24 07:55 37.3 C 104 H 18 129/78 92 Room Air 02/05/24 03:26 36.7 C 83 16 92/57 L 93 Room Air (1) Sepsis Sepsis acute organ dysfunction status: unspecified Sepsis type: sepsis due to unspecified organism Qualified Code(s): A41.9 - Sepsis, unspecified organism (2) UTI (urinary tract infection) Hematuria presence: without hematuria Urinary tract infection type: acute cystitis Qualified Code(s): N30.00 - Acute cystitis without hematuria
[2024-02-05] MEDS: GADOBUTROL 65ML VIAL IV ONE (15:11)
[2024-02-05] MEDS: CASPOFUNGIN 70 MG in SODIUM CHLORIDE 0.9% 250 ML IV ONE (15:57)
--- NOTE | 2024-02-05 19:43 | Magnetic Resonance Report ---
MR lower leg LT wo/w con CLINICAL HISTORY: LLE erythema TECHNIQUE: Multisequence, multiplanar MR images of the left lower leg were obtained without contras t COMPARISON: Comparison is made to MRI lower leg 05/09/2023 FINDINGS: There is bony edema in the medial tibial plateau anteriorly. Soft tissue edema is seen without draina ble fluid collection. A dressing is again seen in the anterior leg. IMPRESSION: Focal edema in the anterior aspect of the medial tibial plateau, osteomyelitis cannot be excluded. Ot herwise there is soft tissue edema without drainable fluid collection. ACT 112: Negative or not required by law. Electronically signed by: Morales Hanna M.D. 02/05/2024 7:40 PM
--- NOTE | 2024-02-05 20:08 | Surgery Consultation ---
Date of Consultation February 05, 2024 Assessment & Plan (1) Sepsis: Patient has been admitted on the hospitalist service. Due to the infections concerns noted in history of present illness she has been placed on antibiotics in form of daptomycin and antifungals in the form of caspofungin The patient is currently n.p.o. after midnight in anticipation of transesophageal echocardiogram by cardiology Pending results of transesophageal echocardiogram patient may require removal of her a port. It would be preferable for patient to be off her Eliquis for at least 48 hours prior to port removal. Timing of possible port removal will be based on BALA results and timing of holding her Eliquis. Additional recommendations be forthcoming based on her clinical course as it unfolds Supervising Physician Co-Signing Physician Notes I personally saw and evaluated the patient with Silver Ruano PA-C and agree with the assessment and plan. 73 yo female with bacteremia/fungemia If it is deemed that she needs her port removed due to her bacteremia/fungemia we can certainly do this She will need to have her Eliquis held for 2 to 3 days prior to removal Would not replace the port at the same time as she has an active infection Surgery will follow along from the periphery, please reach out if port removal is deemed necessary and we can coordinate this History of Present Illness Reason for Consultation: Bacteremia/fungemiapossible need for a port removal Attending Physician: Gema Quintanilla MD History of Present Illness This is a 73-year-old female who was admitted to [facility] on 02/03/2024. Patient was admitted secondary to sepsis. Patient notes that prior to admission to the hospital she was complaining of generalized weakness, diarrhea, and fevers 1 day prior to admission to the hospital. The patient denies any change in appetite or nausea or vomiting. She denies any dysuria. She denies any falls or head injuries. Diagnostic data from this admission has been reviewed. The patient has had a chest x-ray on 02/03/2024 that showed no evidence of pleural effusion or pneumonia. The patient had bilateral lower extremity arterial ultrasounds that showed no evidence of high-grade stenosis in the lower extremities bilaterally. An ankle x-ray was performed of the right ankle that showed no evidence of osteomyelitis. A KUB was performed on 02/03/2024 that showed nonobstructive bowel gas pattern. Patient also had a lower extremity MRI of the left leg. This showed some focal edema in the medial tibial plateau with inability to exclude osteomyelitis. A CT scan of the abdomen pelvis was performed on 02/05/2024 that showed no acute abnormalities in the abdomen or pelvis. Most recent labs are from today (02/05/2024) which showed a CBC that had a white blood cell count of 16.8. Hemoglobin and hematocrit are 8.0 and 26.0 with a normal platelet count. Chemistry profile showed sodium and potassium as well as the creatinine were normal. The BUN was slightly elevated at 25. Since admission the patient has had blood cultures. Blood cultures from 02/03/2024 did show Sheila as well as group B beta strep. A urine culture was performed on 02/03/2024 that showed 3 organisms all of moderate counts with repeat collection recommended. Repeat blood cultures were performed on 02/04/2024 and are thus far pending. The patient also had a blood fungal smear from 02/05/2024 that is thus far negative for yeast identification. Due to the above noted blood cultures General surgery has been asked to see the patient for a port removal. The patient notes that she had an a port placed in the right subclavian position in August 2023. Patient notes that she had lower extremity osteomyelitis at that time requiring prolonged antibiotics and due to difficult IV access the port was placed. The patient notes that since the port has been placed it has been working without difficulty. She denies any pain or swelling at the port site. Concerning her above noted osteomyelitis she said she did require surgical intervention in April and August 2023. To the best of her knowledge she has not had any further difficulties with osteomyelitis. The patient also does have a history of a left lower extremity DVT for which she takes Eliquis twice daily. She is unsure of when her most recent dose of Eliquis was but according to nursing notes here at the hospital her most recent dose was on 02/05/2024 with the a.m. dose. In addition to what is noted above the patient also has 2 teeth scheduled for removal with oral surgery in March of this year. She also notes a painful sore on her tongue. In addition, the patient does have an indwelling intrathecal baclofen pump that was placed she believes in 2006. At the time of my interview the patient was resting comfortably bed and she was no distress. Allergies Allergy/AdvReac Type Severity Reaction Status Date / Time No Known Allergies Allergy Verified 02/03/24 13:13 Home Medications Medication Instructions Recorded Confirmed Type cholecalciferol (vitamin D3) 25 1,000 units PO QAM 09/18/18 02/03/24 History mcg (1,000 unit) capsule escitalopram oxalate 20 mg tablet 20 mg PO QAM 09/18/18 02/03/24 History (Lexapro) oxybutynin chloride 15 mg 15 mg PO QAM 09/18/18 02/03/24 History tablet,extended release 24 hr prednisone 10 mg tablet 10 mg PO QAM 09/18/18 02/03/24 History omeprazole 40 mg capsule,delayed 40 mg PO QAM 07/06/21 02/03/24 History release teriflunomide 14 mg tablet 14 mg PO QPM 05/13/22 02/03/24 History (Aubagio) doxycycline hyclate 50 mg capsule 50 mg PO Q2D Rosacea 08/10/22 02/03/24 History melatonin 3 mg tablet 3 mg PO HS 03/05/23 02/03/24 History multivitamin 1 tab PO DAILY 03/05/23 02/03/24 History metoprolol tartrate 25 mg tablet 25 mg PO BID 05/08/23 02/03/24 History atorvastatin 20 mg tablet (Lipitor) 20 mg PO QAM 08/04/23 02/03/24 History Baclofen Pump 0 mg SC DIRECTED 08/05/23 02/03/24 History tizanidine 4 mg tablet (Zanaflex) 4 mg PO QID 12/15/23 02/03/24 History apixaban 5 mg tablet (Eliquis) 5 mg PO BID 02/03/24 02/03/24 History Patient History Medical History Rosacea Fever History of recent hospitalization 09/2022 [facility] - sepsis History of blood transfusion Limb alert care status left arm HX: breast cancer Left breast cancer with surgery and chemo/radiation-left arm restriction Osteoarthritis of right shoulder History of GI bleed Upper GIB (2019) felt 2/2 NSAID use CAD (coronary artery disease) Non-obstructive per 06/2021 cardiac cath History of non-ST elevation myocardial infarction (NSTEMI) 06/2021 (had heart cath, no stents) History of supraventricular tachycardia History of pulmonary embolism ~ 6 yrs ago, IVC filter still in place History of DVT (deep vein thrombosis) ~6 yrs ago Hx of gastric ulcer 02/2021 Anemia GERD (gastroesophageal reflux disease) controlled, stable per pt Hypertension controlled, stable per pt Raynaud disease Neurogenic bladder SELF CATH 2-3 X'S PER DAY *RECENT HOSPITALIZATION FOR UTI Osteoporosis Multiple sclerosis Follows with Dr. Walker/[facility] Stable Surgical History Port-A-Cath in place (09/29/23) A-Port Insertion, right internal jugular(Right) - Tristin Lazo, S/p reverse total shoulder arthroplasty right: 05/25/22 LMA#4. No postop issues per anesthesia progress note. History of cardiac cath Cardiac cath (07/06/21; [facility]) > Right dominant coronary system. No evidence of aortic stenosis. Normal left ventricular filling pressures. Nonobstructive disease involving the ostial LAD. No evidence of acute coronary syndrome. Approximately 50% ostial stenosis of the LAD. There was some very mild disease at the ostium of the left circumflex. Recommendations: Medical management. History of esophagogastroduodenoscopy (EGD) History of colonoscopy History of tooth extraction History of appendectomy S/P partial hysterectomy History of open reduction and internal fixation (ORIF) procedure "left hip" H/O left mastectomy with lymph node removal>LEFT ARM RESTRICTION S/P IVC filter Presence of intrathecal pump baclofen pump in place--status post revision/replacement 08/10/2022 Family History Mother Heart disorder Other No family history of adverse response to anesthesia Social History Smoking Status: Former smoker Tobacco Type: Cigarettes packs per day: 1; Cigarettes Per Day: stopped in 1977; Second Hand Exposure: No; Do You Dip or Chew Tobacco: No; Hx Alcohol Use: No Hx Substance Use: No Preferred Language: Nigerian Communication Ability: Effective Visual Impairment: Limited Hearing Ability: Use of Hearing Aid Flatcar Whacker Required: No Beliefs That Will Affect Care: None marital status: / Current Living Situation: Alone Current Living Situation Comment: Daughters are an hour away current occupational status: retired How many Children do You have: 3 Other Information That Helps Us Care for You: No Feels Safe at Home: Yes Safety Concerns: Feels Safe At This Time Childhood Exposure to Second-Hand Smoke: Yes Diet: regular caffeine: Yes Assistive Devices: Walker and Wheelchair Review of Systems 2 Constitutional: + fever and + fatigue Ear, Nose, Mouth, Throat: as per Subjective / HPI and + dental caries Respiratory: no cough and no dyspnea Cardiovascular: no chest pain Gastrointestinal: no nausea and no vomiting Genitourinary: no dysuria Musculoskeletal: no back pain Integumentary: no rash Neurologic: no localized weakness Physical Exam Constitutional: no acute distress Eyes: no conjunctival abnormality ENMT: Ears: no hearing impairment Oral mucosa is moist Neck: Patient has noted a port in the right subclavian position. There is no surrounding erythema. There is no pain with palpation of the port. Respiratory: normal respiratory effort; no respiratory distress and no labored breathing Cardiovascular: Rate/Rhythm: regular rate and regular rhythm Gastrointestinal (Abdomen): Soft and nontender to palpation. Musculoskeletal: No calf tenderness Skin: no rashes Neurologic: moves all extremities Psychiatric: A+Ox3, euthymic affect Results & Data Vital Signs (Past 12 Hours) Vital Signs Temp Pulse Pulse Resp BP Pulse Ox O2 Del Method 02/05/24 19:07 36.9 C 66 18 138/84 95 Room Air 02/05/24 16:47 72 02/05/24 16:04 36.5 C 73 17 127/80 98 Room Air 02/05/24 11:52 36.8 C 87 19 103/69 96 Room Air 02/05/24 08:47 99 H PG Care Time/CCT Total # of Minutes Spent Total Time Spent with Patient: Total time spent is greater than 50% in coordination of care (as documented) at patient's floor/unit and/or counseling patient: Coding Level of Care Code 78198 INT INP/OBS CARE 3/75MIN Diagnoses Sepsis A41.9 Sepsis acute organ dysfunction status: unspecified Sepsis type: sepsis due to unspecified organism (1) Sepsis Sepsis acute organ dysfunction status: unspecified Sepsis type: sepsis due to unspecified organism Qualified Code(s): A41.9 - Sepsis, unspecified organism
[2024-02-06 06:15] LABS: Hematocrit (blood only) 27.4 % (37.0-47.0); Hemoglobin 8.4 g/dl (12.0-16.0); Mean Corpuscular Hemoglobin 25.6 pg (25.0-34.0); Mean Corpuscular Hgb Conc 30.7 g/dL (32.0-36.0); Mean Corpuscular Volume 83.5 fL (80.0-100.0); Platelet Count 227 K/uL (130-400); RDW Coefficient of Variation 17.8 % (11.5-14.5); RDW Standard Deviation 54.5 fL (36.4-46.3); Red Blood Count 3.28 M/uL (4.20-5.40); White Blood Count 13.19 K/ul (4.8-10.8)
[2024-02-06 06:19] LABS: Anion Gap 7 (3-11); BUN Creatinine Ratio 30.3 (10-20); Blood Urea Nitrogen 27 mg/dl (6-23); Calcium 8.2 mg/dl (8.6-10.3); Carbon Dioxide 23 mmol/L (21-32); Chloride 107 mmol/L (98-107); Creatinine Clr Calc Pharmacy 55.3 ml/min; Est GFR (African American) 75.6 ml/min; Est GFR (Non-African American) 65.2 ml/min; Glucose 122 mg/dl (70-99(Fasting)); Potassium 4.2 mmol/L (3.5-5.1); Sodium 137 mmol/L (136-145)
[2024-02-06 06:21] LABS: Alanine Aminotransferase 28 U/L (7-52); Albumin Globulin Ratio 1.1 (0.9-2); Albumin Level 3.2 gm/dl (3.4-5.0); Alkaline Phosphatase 51 U/L (34-104); Aspartate Aminotransferase 29 U/L (13-39); Bilirubin,Total 0.5 mg/dl (0.2-1.0); Creatine Kinase 260 U/L (26-192); Globulin 2.9 gm/dl (2.5-4.0); Iron < 10 mcg/dl (35-150); Magnesium 2.2 mg/dl (1.7-2.4); Phosphorus 2.6 mg/dl (2.5-4.9); Total Protein 6.1 gm/dl (6.0-8.3); Unsaturated Iron Binding Cap 207 mcg/dl (155-355)
[2024-02-06 06:42] LABS: Basophils # (auto) 0.03 K/uL (0.00-0.20); Basophils % (auto) 0.2 %; Echinocytes 1+; Immature Granulocytes # (auto) 0.05 K/uL (0.01-0.20); Immature Granulocytes % (auto) 0.4 %; Lymphocytes # (auto) 0.42 K/uL (1.20-3.40); Lymphocytes % (auto) 3.2 %; Monocytes # (auto) 0.45 K/uL (0.11-0.59); Monocytes % (auto) 3.4 %; Neutrophils # (auto) 12.24 K/uL (1.40-6.50); Neutrophils % (auto) 92.8 %; Polychromasia 1+; Toxic Vacuolation 1+
[2024-02-06 06:44] LABS: Folate (Folic Acid),Ser orPlas 19.33 ng/ml (>5.38)
[2024-02-06 07:22] LABS: Appearance Urine Clear (Clear); Bilirubin Urine Negative (Negative); Blood Urine Negative (Negative); Color Urine Yellow; Glucose Urine UA Negative (Negative); Ketones Urine Negative (Negative); Leukocyte Esterase Urine Negative (Negative); Nitrite Urine Negative (Negative); Protein Urine 2+ (Negative); RBC Urine Automated 0-4 /hpf (0-4); Specific Gravity Urine > 1.045 (1.000-1.030); Urobilinogen Urine Negative (Negative)
[2024-02-06 07:41] LABS: Bacteria Urine Automated 1+ (Negative)
[2024-02-06] MEDS: CASPOFUNGIN 50 MG in SODIUM CHLORIDE 0.9% 250 ML IV SCH (08:03)
[2024-02-06] MEDS: IRON SUCROSE 200 MG in 0.9 % SODIUM CHLORIDE 100 ML IV ONE (10:03)
--- NOTE | 2024-02-06 10:14 | Surgery Progress Note ---
Date of Service February 06, 2024 Assessment & Plan (1) Fungemia: Plan: Pt here with sepsis, + fungemia found planning for BALA today with cardiology Infectious disease has been consulted for abx guidance and recommendations If deemed warranted to remove Port please hold eliquis and reach out to our services, ideally would like to be held at least 48-72hrs prior to procedure We are around if needed Admission and Anticipated Discharge Date Admission Date: February 03, 2024 Supervising Physician Co-Signing Physician Notes I personally saw and evaluated the patient with Paula Mcghee PA-C and agree with the assessment and plan. 73 yo female with bacteremia/fungemia If it is deemed that she needs her port removed due to her bacteremia/fungemia we can certainly do this She will need to have her Eliquis held for 2 to 3 days prior to removal Would not replace the port at the same time as she has an active infection Surgery will follow along from the periphery, please reach out if port removal is deemed necessary and we can coordinate this Subjective Patient awaiting BALA. Sitting up in bed about to work with OT. No complaints. Physical Exam Physical Exam: awake/alert, sitting up at the side of the bed Chest (Breasts): Additional Comments: port in R chest, no signs of infection Results & Data Vital Signs (Past 12 Hours) Vital Signs Temp Pulse Pulse Resp BP BP Pulse Ox 02/06/24 07:58 98.8 F 85 17 152/103 H 95 02/06/24 02:55 98.6 F 77 14 110/68 96 02/05/24 23:19 72 02/05/24 23:10 98.2 F 77 16 122/75 95 O2 Del Method 02/06/24 07:58 Room Air 02/06/24 02:55 Room Air 02/05/24 23:19 02/05/24 23:10 Room Air PG Care Time/CCT Total # of Minutes Spent Total Time Spent with Patient: Total time spent is greater than 50% in coordination of care (as documented) at patient's floor/unit and/or counseling patient: Coding Level of Care Code 09051 SUB INP/OBS CARE 125MIN Diagnoses Fungemia B49
--- NOTE | 2024-02-06 13:13 | Pain Management Consultation ---
Date of Consultation February 06, 2024 Assessment & Plan (1) Traumatic open wound of left lower leg: (2) Presence of intrathecal pump: Plan 1. Her intrathecal pump was interrogated this AM and is functioning appropriately. Please call with any questions. History of Present Illness Attending Physician: Gema Quintanilla MD Allergies Allergy/AdvReac Type Severity Reaction Status Date / Time No Known Allergies Allergy Verified 02/03/24 13:13 Home Medications Medication Instructions Recorded Confirmed Type cholecalciferol (vitamin D3) 25 1,000 units PO QAM 09/18/18 02/03/24 History mcg (1,000 unit) capsule escitalopram oxalate 20 mg tablet 20 mg PO QAM 09/18/18 02/03/24 History (Lexapro) oxybutynin chloride 15 mg 15 mg PO QAM 09/18/18 02/03/24 History tablet,extended release 24 hr prednisone 10 mg tablet 10 mg PO QAM 09/18/18 02/03/24 History omeprazole 40 mg capsule,delayed 40 mg PO QAM 07/06/21 02/03/24 History release teriflunomide 14 mg tablet 14 mg PO QPM 05/13/22 02/03/24 History (Aubagio) doxycycline hyclate 50 mg capsule 50 mg PO Q2D Rosacea 08/10/22 02/03/24 History melatonin 3 mg tablet 3 mg PO HS 03/05/23 02/03/24 History multivitamin 1 tab PO DAILY 03/05/23 02/03/24 History metoprolol tartrate 25 mg tablet 25 mg PO BID 05/08/23 02/03/24 History atorvastatin 20 mg tablet (Lipitor) 20 mg PO QAM 08/04/23 02/03/24 History Baclofen Pump 0 mg SC DIRECTED 08/05/23 02/03/24 History tizanidine 4 mg tablet (Zanaflex) 4 mg PO QID 12/15/23 02/03/24 History apixaban 5 mg tablet (Eliquis) 5 mg PO BID 02/03/24 02/03/24 History Patient History Medical History Rosacea Fever History of recent hospitalization 09/2022 [facility] - sepsis History of blood transfusion Limb alert care status left arm HX: breast cancer Left breast cancer with surgery and chemo/radiation-left arm restriction Osteoarthritis of right shoulder History of GI bleed Upper GIB (2019) felt 2/2 NSAID use CAD (coronary artery disease) Non-obstructive per 06/2021 cardiac cath History of non-ST elevation myocardial infarction (NSTEMI) 06/2021 (had heart cath, no stents) History of supraventricular tachycardia History of pulmonary embolism ~ 6 yrs ago, IVC filter still in place History of DVT (deep vein thrombosis) ~6 yrs ago Hx of gastric ulcer 02/2021 Anemia GERD (gastroesophageal reflux disease) controlled, stable per pt Hypertension controlled, stable per pt Raynaud disease Neurogenic bladder SELF CATH 2-3 X'S PER DAY *RECENT HOSPITALIZATION FOR UTI Osteoporosis Multiple sclerosis Follows with Dr. Walker/[facility] Stable Surgical History Port-A-Cath in place (09/29/23) A-Port Insertion, right internal jugular(Right) - Tristin Lazo, S/p reverse total shoulder arthroplasty right: 05/25/22 LMA#4. No postop issues per anesthesia progress note. History of cardiac cath Cardiac cath (07/06/21; [facility]) > Right dominant coronary system. No evidence of aortic stenosis. Normal left ventricular filling pressures. Nonobstructive disease involving the ostial LAD. No evidence of acute coronary syndrome. Approximately 50% ostial stenosis of the LAD. There was some very mild disease at the ostium of the left circumflex. Recommendations: Medical management. History of esophagogastroduodenoscopy (EGD) History of colonoscopy History of tooth extraction History of appendectomy S/P partial hysterectomy History of open reduction and internal fixation (ORIF) procedure "left hip" H/O left mastectomy with lymph node removal>LEFT ARM RESTRICTION S/P IVC filter Presence of intrathecal pump baclofen pump in place--status post revision/replacement 08/10/2022 Family History Mother Heart disorder Other No family history of adverse response to anesthesia Social History Smoking Status: Former smoker Tobacco Type: Cigarettes packs per day: 1; Cigarettes Per Day: stopped in 1977; Second Hand Exposure: No; Do You Dip or Chew Tobacco: No; Hx Alcohol Use: No Hx Substance Use: No Preferred Language: Danish Communication Ability: Effective Visual Impairment: Limited Hearing Ability: Use of Hearing Aid Sales Relationship Manager Required: No Beliefs That Will Affect Care: None marital status: / Current Living Situation: Alone Current Living Situation Comment: Daughters are an hour away current occupational status: retired How many Children do You have: 3 Other Information That Helps Us Care for You: No Feels Safe at Home: Yes Safety Concerns: Feels Safe At This Time Childhood Exposure to Second-Hand Smoke: Yes Diet: regular caffeine: Yes Assistive Devices: Walker and Wheelchair
--- NOTE | 2024-02-06 15:19 | Cardiology Progress Note ---
Date of Service February 06, 2024 Assessment & Plan (1) Myocardial strain: (2) Tachycardia: (3) Sepsis: Plan * 73 year old female with h/o multiple sclerosis who is mostly wheel chair bound, walks very short distances with walker at home present with symptoms and findings consistent with sepsis , with possible urine, skin, or recurrent osteomyelitis as potential sources. 1 of 2 blood cultures obtained on 02/03/2024 yielding group beta strep, Sheila albicans, and probable Enterococcus. Second blood culture from that day yielding Sheila albicans. Preliminary culture obtained on 02/03 yielding yeast. Patient with noted history of osteomyelitis of the right ankle with partial excision of the right fibula performed by podiatry on 10/22/2023 and had a poorly healing surgical wound postoperatively. Now has open skin wounds on the left lower leg She has two teeth that are scheduled for removal in March with Dr Lockhart , but denies any pain in this area. She does have a painful sore on her tongue. She has an indwelling intrathecal pump for baclofen. Indwelling was placed in September, for access for antibiotics and treatment for osteomyelitis at that time Patient has history of mild aortic stenosis. -BALA delayed until am of 02/07/24 due to scheduling constrictions. -NPO after MN. - BP improved , most recent measurement 166/102 mm Hg. Hold Midodrine. -Continue metoprolol for SVT. -Patient is on Eliquis due to her history of DVT as well as paroxysmal atrial fibrillation. Due to anticipated upcoming procedure, will hold Eliquis with last dose a.m. of 02/06/2024, and will start full weight-based heparin infusion protocol on 02/06/2024 at 2100 without loading bolus. J Carlos Vargas DO Admission and Anticipated Discharge Date Admission Date: February 03, 2024 Subjective Patient seen in cardiology follow-up. Feels well. No subjective shortness of breath and is mentating well. Telemetry reveals sinus rhythm in the range of 60s to 70s. Brief runs of supraventricular tachycardia observed, most recent of which was on 02/04/2024 at 2145. Review of Systems Review of Systems: All systems reviewed & are unremarkable except as noted in HPI & below Physical Exam Constitutional: + ill appearing and + frail appearing; n o acute distress Respiratory: normal respiratory effort, lungs clear to auscultation Cardiovascular: Rate/Rhythm: regular rhythm and + tachycardic Heart Sounds: + murmur (2/6 systolic murmur ) Extremities: + edema (left lower leg and left pedal edema ) Gastrointestinal (Abdomen): normal bowel sounds, soft, nontender, no hepatosplenomegaly Skin: Left lower leg erythematous and swollen however trending toward improvement Neurologic: Conversant, no focal deficits, follows commands Psychiatric: A+Ox3, euthymic affect Results & Data Vital Signs (Past 12 Hours) Vital Signs Temp Pulse Pulse Resp BP BP Pulse Ox 02/06/24 12:14 37.0 C 73 19 166/102 H 93 02/06/24 07:58 37.1 C 85 17 152/103 H 95 02/06/24 07:07 82 O2 Del Method 02/06/24 12:14 Room Air 02/06/24 07:58 Room Air 02/06/24 07:07 Laboratory Results Cardiac Enzymes 02/06/24 Range/Units 05:38 AST 29 (13-39) U/L CBC 02/06/24 Range/Units 05:38 WBC 13.19 H (4.8-10.8) K/ul RBC 3.28 L (4.20-5.40) M/uL Hgb 8.4 L (12.0-16.0) g/dl Hct 27.4 L (37.0-47.0) % Plt Count 227 (130-400) K/uL Neut # (Auto) 12.24 H (1.40-6.50) K/uL Lymph # (Auto) 0.42 L (1.20-3.40) K/uL Benton # (Auto) 0.45 (0.11-0.59) K/uL Eos # (Auto) 0.00 (0.00-0.50) K/uL Baso # (Auto) 0.03 (0.00-0.20) K/uL Comprehensive Metabolic Panel 02/06/24 Range/Units 05:38 Sodium 137 (136-145) mmol/L Potassium 4.2 (3.5-5.1) mmol/L Chloride 107 (98-107) mmol/L Carbon Dioxide 23 (21-32) mmol/L BUN 27 H (6-23) mg/dl Creatinine 0.89 (0.6-1.2) mg/dl Glucose 122 H (70-99(Fasting)) mg/dl Calcium 8.2 L (8.6-10.3) mg/dl AST 29 (13-39) U/L ALT 28 (7-52) U/L Alkaline Phosphatase 51 (34-104) U/L Total Protein 6.1 (6.0-8.3) gm/dl Albumin 3.2 L (3.4-5.0) gm/dl (3) Sepsis Sepsis acute organ dysfunction status: unspecified Sepsis type: sepsis due to unspecified organism Qualified Code(s): A41.9 - Sepsis, unspecified organism
[2024-02-06] MEDS ORDERED: Heparin IV Adult Wt-Based Standard w/ INITIAL Bolus Protocol IV SCH (15:30)
--- NOTE | 2024-02-06 17:56 | Hospitalist Progress Note ---
Date of Service February 06, 2024 Assessment & Plan (1) Sepsis: (2) UTI (urinary tract infection): (3) Cellulitis of left lower leg: (4) Elevated troponin: (5) Diarrhea: (6) Hypomagnesemia: (7) Chronic refractory osteomyelitis of ankle: (8) CAD (coronary artery disease): (9) History of pulmonary embolism: (10) S/P IVC filter: (11) Paroxysmal atrial fibrillation: (12) Multiple sclerosis: (13) Neurogenic bladder: (14) Chronic anemia: (15) Rosacea: (16) Breast cancer: Plan Patient is 73-year-old female with PMH HTN, CAD, history NSTEMI, paroxysmal atrial fibrillation, history of PE, DVT, chronic anticoagulation on Eliquis, MS, neurogenic bladder requiring self catheterization, chronic anemia, rosacea, chronic osteomyelitis right lower extremity, history of breast cancer who presented to ER with complaint of tactile fevers, generalized weakness, diarrhea x 1 day. Sepsis Complicated UTI LLE Cellulitis Sepsis. Possible source UTI, possible LLE cellulitis, chronic R ankle wound In ER T: 36.2 C, P: 102, RR: 16, BP 117/76, 96% on room air. WBC: 19, lactate: 1.8, Procalcitonin: 9 CXR: Cardiomegaly with pulmonary vascular prominence Arterial lower extremity Doppler: There is no sonographic evidence of high-grade stenosis or focal vessel cut off seen throughout the arteries of the right or left lower extremity. In ER given 1 L NSS, cefepime, daptomycin. Reevaluation. Patient awake, alert and oriented x 3. BP 115/75, P: 112, R: 20, 94% on room air. Brisk capillary refill. Lungs clear to auscultation, sinus tachycardia. Blood culturex1 from 02/02 growing Group B Beta strep, probable Enterococcus Blood Cx x2 from 02/02 also growing yeast/uvaldo Repeat blood Cx on 02/03 pending- one growing yeast R ankle wound growing E. faecalis Biofire showing E faecalis + and strep + Urine culture with no significant growth, repeat ordered on 02/04, no sig growth Cefepime, vancomycin switched to Cefepime with Daptomycin Caspofungin added on 02/04 Bolus with gentle IVF Stool studies, C-diff if recurrent diarrhea Wound nurse consult ID consulted, appreciate recs -still awaiting ID recs Bacteremia Fungemia Blood culture x1 from 02/02 growing Group B Beta strep Blood Cx x2 from 02/02 also growing yeast/uvaldo Repeat blood Cx ordered on 02/03 and pending- growing yeast R ankle wound growing E. faecalis Urine culture with no significant growth, repeat ordered on 02/04 NGTD Pt with indwelling R IJ port, previously placed for osteomyelitis treatment for RIGHT ankle in Sep 2023 , will likely need removal -General surgery consulted, appreciate recs Pt also with indwelling baclofen pump -Pain management previously consulted, appreciate recs for potential removal Cardiology consulted, appreciate recs -Tentative BALA on 02/06, NPO after midnight Continue IV Cefepime, Daptomycin and Caspofungin ID consulted-appreciate recs Septic Shock Pt with persistently low blood pressure in setting of above Receiving cautious fluid boluses On stress IV hydrocortisone 50mg q6h Midodrine 5mg TID started, held on 02/05 due to high blood pressures Consider Florinef for additional support if needed If still low, will need pressor support in the ICU Continue to monitor Elevated troponin hs-Troponin:1140-->1375--->1833 CK: 369 Initial EKG sinus rhythm, rate 99, Q waves septal leads repeat EKG sinus tachycardia, rate 116, Q waves septal leads. Q waves septal leads seen in prior EKGs per chart review Patient without chest pain, shortness of breath, dizziness, palpitations, dizziness Likely Type II NSTEMI Echo with EF> 70%, Grade I diastolic dysfunction, mild aortic stenosis Continue metoprolol, atorvastatin Continue Eliquis Cardiology consulted appreciate recs -no procedure -cardiac MRI -continue metoprolol Diarrhea 2 episodes diarrhea day before admission Denies abdominal pain. No further diarrhea today If recurrent diarrhea plan to obtain stool culture, C. difficile CT abdomen pelvis with no acute pathology Electrolyte Abnormalities: -Hypomagnesemia: Magnesium 1.5 on admission. Replete as needed Chronic refractory osteomyelitis of ankle History of chronic osteomyelitis right ankle Right ankle x-ray: No evidence osteomyelitis Chronic right ankle ulcer R ankle wound growing E faecalis Wound nurse consult On Daptomycin as noted above Elevated CK Rhabdo Ck elevated at 239 IV hydration as above CAD (coronary artery disease) History nonocclusive CAD. History NSTEMI Workup as above Continue metoprolol tartrate with holding parameters, statin History of pulmonary embolism S/P IVC filter History of PE. IVC filter in place. History DVT left lower extremity in 09/2023. Eliquis on hold for upcoming procedures, held on 02/05 (last dose in AM), transitioned to IV heparin Patient denies any missed doses Paroxysmal atrial fibrillation Anticoagulated on Eliquis Current sinus tachycardia Eliquis on hold for upcoming procedures, held on 02/05 (last dose in AM), transitioned to IV heparin Continue metoprolol tartrate, IV heparin as above Multiple sclerosis Neurogenic bladder Self catheterization at home Has baclofen pump On Aubagio, prednisone, tizanidine Zuñiga catheter Pain management consult in setting of need for MRI, consider po baclofen dose around imaging Chronic anemia Hgb: 9.6. Baseline in ' Monitor H&H Rosacea On chronic doxycycline. Will hold doxycycline for now as on above antibiotics Breast cancer History left breast cancer s/p surgery, radiation Diet: HH DVT Prophylaxis: On Eliquis Full Code as per discussion with pt Dispo: PT/OT ordered Pt's daughter called and updated on 02/05/24. She states she will update her other sisters. Admission and Anticipated Discharge Date Admission Date: February 03, 2024 Subjective Pt seen with 2 daughters at bedside. Updated. Questions answered. Pt AAOx3, no acute distress. Review of Systems Review of Systems: All systems reviewed & are unremarkable except as noted in Subjective Physical Exam Physical Exam: General: Alert, oriented. No acute distress Skin: LLE with erythema to the leg and foot Psych: Appropriate mood and affect Neuro: difficulty with movements in the bed HEENT: NC/AT CV: RRR, Normal s1, s2. No murmurs appreciated Resp: Breath sounds clear bilaterally, no increased effort of breathing. Abdomen: Soft, nontender, nondistended. Extremities: edema in lower extremities bilaterally. Results & Data Results & Data Vital Signs (Past 12 Hours) Vital Signs Temp Pulse Pulse Resp BP BP Pulse Ox 02/06/24 17:23 73 02/06/24 15:00 36.5 C 74 18 132/75 95 02/06/24 12:14 37.0 C 73 19 166/102 H 93 02/06/24 07:58 37.1 C 85 17 152/103 H 95 02/06/24 07:07 82 O2 Del Method 02/06/24 17:23 02/06/24 15:00 Room Air 02/06/24 12:14 Room Air 02/06/24 07:58 Room Air 02/06/24 07:07 (1) Sepsis Sepsis acute organ dysfunction status: unspecified Sepsis type: sepsis due to unspecified organism Qualified Code(s): A41.9 - Sepsis, unspecified organism (2) UTI (urinary tract infection) Hematuria presence: without hematuria Urinary tract infection type: acute cystitis Qualified Code(s): N30.00 - Acute cystitis without hematuria
--- NOTE | 2024-02-06 17:59 | Communication Note ---
Date of Service: February 06, 2024 Per pt request, I called her daughter, Alyssa, and provided updates. J Carlos Vargas , DO
[2024-02-06] MEDS: HEPARIN SODIUM/DEXTROSE 25,000 UNITS/500 ML BAG IV SCH (20:29)
[2024-02-06] MEDS ORDERED: Heparin IV Adult Wt-Based Standard *NO* INITIAL Bolus Protocol IV ONE (21:00)
[2024-02-06] MEDS ORDERED: HEPARIN SODIUM/DEXTROSE 25,000 UNITS/500 ML BAG IV SCH (21:00)
[2024-02-07 03:53] LABS: Basophils # (auto) 0.02 K/uL (0.00-0.20); Basophils % (auto) 0.2 %; Hematocrit (blood only) 26.8 % (37.0-47.0); Hemoglobin 8.5 g/dl (12.0-16.0); Immature Granulocytes # (auto) 0.05 K/uL (0.01-0.20); Immature Granulocytes % (auto) 0.6 %; Lymphocytes # (auto) 0.46 K/uL (1.20-3.40); Lymphocytes % (auto) 5.6 %; Mean Corpuscular Hemoglobin 26.2 pg (25.0-34.0); Mean Corpuscular Hgb Conc 31.7 g/dL (32.0-36.0); Mean Corpuscular Volume 82.5 fL (80.0-100.0); Mean Platelet Volume 10.8 fL (9.4-12.4); Monocytes # (auto) 0.47 K/uL (0.11-0.59); Monocytes % (auto) 5.7 %; Neutrophils # (auto) 7.26 K/uL (1.40-6.50); Neutrophils % (auto) 87.9 %; Nucleated RBC # (auto) 0.04 K/uL (0.00-0.12); Nucleated RBC % (auto) 0.5 %; Platelet Count 235 K/uL (130-400); RDW Coefficient of Variation 17.4 % (11.5-14.5); RDW Standard Deviation 52.7 fL (36.4-46.3); Red Blood Count 3.25 M/uL (4.20-5.40); White Blood Count 8.26 K/ul (4.8-10.8)
[2024-02-07 04:09] LABS: Albumin Globulin Ratio 1.1 (0.9-2); Albumin Level 3.1 gm/dl (3.4-5.0); BUN Creatinine Ratio 35.4 (10-20); Bilirubin,Total 0.4 mg/dl (0.2-1.0); Calcium 8.2 mg/dl (8.6-10.3); Est GFR (African American) 83.4 ml/min; Globulin 2.8 gm/dl (2.5-4.0); Magnesium 2.2 mg/dl (1.7-2.4); Phosphorus 2.7 mg/dl (2.5-4.9); Potassium 4.3 mmol/L (3.5-5.1); Total Protein 5.9 gm/dl (6.0-8.3)
[2024-02-07 04:28] LABS: ANTI-Xa, UFH(UnfractionatedHep > 1.50 IU/ml (0.3-0.7)
--- NOTE | 2024-02-07 04:47 | Communication Note ---
Date of Service: February 07, 2024 Patient tachycardic as per RN. Heart rate 160s. Possible SVT on the monitor as per RN. Intermittent breaking with vagal maneuvers. Chest heaviness during episode. Spontaneous conversion to NSR with vagal maneuvers as per RN. SBP 140s, pulse rate 80 as per RN AP PSVT Possibly from stress dose steroids initiated given patient hypotension on 02/02 admission Patient home metoprolol decreased in dose given hypotension SBP stable in the last 48 hours Increase maintenance beta-jenaro dose Decrease hydrocortisone from 50 mg 4 times daily to 25 mg 4 times daily for now, discuss tapering off steroids with a.m. provider Decrease midodrine from 5 mg 3 times daily to 2.5 mg 3 times daily for now
[2024-02-07] MEDS: ACETAMINOPHEN 1,000 MG/100 ML VIAL IV STA (04:49)
[2024-02-07] MEDS: METOPROLOL TARTRATE 25 MG TAB PO STA (05:16)
[2024-02-07] MEDS: HYDROCORTISONE SOD 25 MG in SYRINGE 0 ML IV SCH (05:16)
[2024-02-07] MEDS: METOPROLOL TARTRATE 1 MG/ML VIAL IV STA (05:53)
--- NOTE | 2024-02-07 07:20 | History & Physical Bridge Note ---
Date of Service February 07, 2024 History & Physical Bridge Note I have examined the patient, reviewed the History & Physical and in the interval since the performance of the History & Physical I have noted the following changes of clinical significance: no changes noted
[2024-02-07] MEDS ORDERED: MIDODRINE HCL 2.5 MG TAB PO SCH (08:00)
--- NOTE | 2024-02-07 08:26 | Operative Report ---
Post Operative Report Pre & Post Diagnosis Operation Date: 02/07/24 07:45 Preprocedure diagnosis: Bacteremia, fungemia, rule out cardiac source Post procedure diagnosis: No vegetation. I identified the patient and participated in the time-out.: Yes Procedure Operation Date: 02/07/24 07:45 Actual Procedures p Echo Transesophageal - DO tammy Lancaster Echo Doppler Complete - DO tammy Lancaster Echo Color Flow - Toby Vargas DO Transesophageal echocardiogram procedure: After informed consent was obtained a timeout was performed the patient was sedated with the assistance of the anesthesia service. No valvular vegetation was observed. There was an indwelling port partially visualized in the superior vena cava without associated mass. Surgeon Toby Vargas DO Packing Shed Supervisor Shaye Fregoso, RCS Estimated Blood Loss 0 Findings Consistent with Post-Op Diagnosis Specimens none Anesthesia Type MAC Description of Procedure as noted above I attest to the content of the Intraoperative Record and any orders documented therein. Any exceptions are noted below.
--- NOTE | 2024-02-07 08:31 | Pain Management Progress Note ---
Date of Service February 07, 2024 Assessment & Plan (1) Fungemia: (2) Sepsis: Sepsis acute organ dysfunction status: unspecified Sepsis type: sepsis due to unspecified organism Qualified Code(s): A41.9 - Sepsis, unspecified organism (3) Presence of intrathecal pump: Plan Patient was not in the room to be seen this morning. Having BALA performed this morning. Admission and Anticipated Discharge Date Admission Date: February 03, 2024
--- NOTE | 2024-02-07 08:33 | Cardiology Progress Note ---
Date of Service February 07, 2024 Assessment & Plan (1) Myocardial strain: (2) Tachycardia: (3) Sepsis: Plan * 73 year old female with h/o multiple sclerosis who is mostly wheel chair bound, walks very short distances with walker at home present with symptoms and findings consistent with sepsis , with possible urine, skin, or recurrent osteomyelitis as potential sources. 1 of 2 blood cultures obtained on 02/03/2024 yielding group beta strep, Sheila albicans, and probable Enterococcus. Second blood culture from that day yielding Sheila albicans. Preliminary culture obtained on 02/03 yielding yeast. Patient with noted history of osteomyelitis of the right ankle with partial excision of the right fibula performed by podiatry on 10/22/2023 and had a poorly healing surgical wound postoperatively. Now has open skin wounds on the left lower leg She has two teeth that are scheduled for removal in March with Dr Lockhart , but denies any pain in this area. She does have a painful sore on her tongue. She has an indwelling intrathecal pump for baclofen. Indwelling was placed in September, for access for antibiotics and treatment for osteomyelitis at that time Patient has history of mild aortic stenosis. -BALA 02/07/24 without evidence of vegetation. The distal portion of the port was partially visualized in the superior vena cava and was without visualized abnormality. - Metoprolol dose increased overnight , continue metoprolol tartrate 25 mg BID. -May need to have oral surgery investigate her teeth while hospitalized. -Will resume heparin bridge per protocol when levels allow. -Removing the port becomes complicated as pt has poor IV access (prompting port placement to begin with). -Await ID input. -Midodrine on hold as BP improved. J Carlos Vargas DO Admission and Anticipated Discharge Date Admission Date: February 03, 2024 Subjective Patient seen in cardiology follow up prior to , during and post BALA. No acute complaints. Had recurrent episode of SVT overnight that terminated with Valsalva. Heparin on hold per protocol due to elevated Anti-Xa level. Physical Exam Constitutional: + ill appearing and + frail appearing; n o acute distress Respiratory: normal respiratory effort, lungs clear to auscultation Cardiovascular: Rate/Rhythm: regular rhythm and + tachycardic Heart Sounds: + murmur (2/6 systolic murmur ) Extremities: + edema (left lower leg and left pedal edema ) Gastrointestinal (Abdomen): normal bowel sounds, soft, nontender, no hepatospl enomegaly Psychiatric: A+Ox3, euthymic affect Results & Data Vital Signs (Past 12 Hours) Vital Signs Temp Pulse Pulse Resp BP BP Pulse Ox 02/07/24 08:15 75 18 128/85 94 02/07/24 07:16 36.7 C 74 18 158/94 H 96 02/07/24 04:42 80 145/84 H 02/07/24 04:40 160 H 02/07/24 02:43 36.9 C 89 18 145/77 H 95 02/06/24 22:58 36.6 C 83 18 152/86 H 93 02/06/24 21:59 76 O2 Del Method 02/07/24 08:15 Room Air 02/07/24 07:16 Room Air 02/07/24 04:42 02/07/24 04:40 02/07/24 02:43 Room Air 02/06/24 22:58 Room Air 02/06/24 21:59 (3) Sepsis Sepsis acute organ dysfunction status: unspecified Sepsis type: sepsis due to unspecified organism Qualified Code(s): A41.9 - Sepsis, unspecified organism
[2024-02-07 09:08] LABS: Basophils # (auto) 0.02 K/uL (0.00-0.20); Basophils % (auto) 0.3 %; Hematocrit (blood only) 24.6 % (37.0-47.0); Hemoglobin 7.9 g/dl (12.0-16.0); Immature Granulocytes # (auto) 0.04 K/uL (0.01-0.20); Immature Granulocytes % (auto) 0.5 %; Lymphocytes # (auto) 0.45 K/uL (1.20-3.40); Mean Corpuscular Hemoglobin 26.2 pg (25.0-34.0); Mean Corpuscular Hgb Conc 32.1 g/dL (32.0-36.0); Mean Corpuscular Volume 81.5 fL (80.0-100.0); Mean Platelet Volume 10.6 fL (9.4-12.4); Monocytes # (auto) 0.61 K/uL (0.11-0.59); Monocytes % (auto) 8.1 %; Neutrophils # (auto) 6.44 K/uL (1.40-6.50); Neutrophils % (auto) 85.1 %; Nucleated RBC # (auto) 0.04 K/uL (0.00-0.12); Nucleated RBC % (auto) 0.5 %; Platelet Count 234 K/uL (130-400); RDW Coefficient of Variation 17.7 % (11.5-14.5); RDW Standard Deviation 52.3 fL (36.4-46.3); Red Blood Count 3.02 M/uL (4.20-5.40); White Blood Count 7.56 K/ul (4.8-10.8)
[2024-02-07 09:21] LABS: BUN Creatinine Ratio 37.8 (10-20); Calcium 8.1 mg/dl (8.6-10.3); Creatinine Clr Calc Pharmacy 66.2 ml/min; Est GFR (African American) 94.5 ml/min; Est GFR (Non-African American) 81.5 ml/min; Magnesium 2.1 mg/dl (1.7-2.4)
--- NOTE | 2024-02-07 09:35 | Anesthesiology Progress Note ---
Date of Service February 07, 2024 Anesthesia Post Procedure Vital Signs Vital Signs: Temp Pulse Pulse Resp BP BP Pulse Ox 02/07/24 08:30 72 18 128/98 95 02/07/24 08:15 75 18 128/85 94 02/07/24 08:00 78 02/07/24 07:16 36.7 C 74 18 158/94 H 96 02/07/24 04:42 80 145/84 H 02/07/24 04:40 160 H 02/07/24 02:43 36.9 C 89 18 145/77 H 95 02/06/24 22:58 36.6 C 83 18 152/86 H 93 02/06/24 21:59 76 02/06/24 19:34 36.8 C 89 18 143/78 H 92 02/06/24 17:23 73 02/06/24 15:00 36.5 C 74 18 132/75 95 02/06/24 12:14 37.0 C 73 19 166/102 H 93 O2 Del Method 02/07/24 08:30 Room Air 02/07/24 08:15 Room Air 02/07/24 08:00 02/07/24 07:16 Room Air 02/07/24 04:42 02/07/24 04:40 02/07/24 02:43 Room Air 02/06/24 22:58 Room Air 02/06/24 21:59 02/06/24 19:34 Room Air 02/06/24 17:23 02/06/24 15:00 Room Air 02/06/24 12:14 Room Air Transfer of Care Handoff Completed per policy Notes Mental Status: alert / awake / arousable and participated in evaluation Nausea / Vomiting: adequately controlled Pain: adequately controlled Airway Patency, RR, SpO2: stable & adequate BP & HR: stable & adequate Hydration State: stable & adequate Anesthetic Complications: no major complications apparent and Pt Satisfied with anesthetic care
[2024-02-07 09:44] LABS: Ovalocytes 1+; Polychromasia 1+
[2024-02-07] MEDS: SUGAMMADEX SODIUM 200 MG/2 ML VIAL IV ONE ×2 (10:18)
[2024-02-07] MEDS: BENZOCAINE/TETRACAIN/BUTAM 50 APPLN/5 GM CAN EXT ONE (10:18)
[2024-02-07] MEDS: LIDOCAINE 2% 2 ML VIAL/AMP(20MG/ML) INFIL ONE (10:18)
[2024-02-07] MEDS: PROPOFOL IV EMULSION 10 MG/ML 20 ML VIAL IV ONE (10:18)
[2024-02-07 10:20] LABS: ANTI-Xa, UFH(UnfractionatedHep 0.82 IU/ml (0.3-0.7)
--- NOTE | 2024-02-07 10:47 | Infectious Disease Consult ---
Date of Service February 07, 2024 Telehealth Information I performed this visit using a real-time telehealth connection between my location and the patients location ([facility]). After connecting through interactive tele-video, patient was identified by name and date of and/or wristband check.Patient (or authorized healthcare client account representative) was informed that this was a telemedicine visit and it was being conducted confidentially over secure lines. My office door was closed and no on e else was present in the room with me.Patient (or authorized healthcare client account representative) provided consent to proceed with the visit, expressed an understanding of privacy and security of the telemedicine visit, and gave permission to have a hospital client account representative in the room in order to assist with the visit and to conduct portions of the visit, as needed. I informed the patient (or authorized healthcare client account representative) that I reviewed their record and presented the opportunity for them to ask any questions regarding the visit today. The patient agreed to participate. Assessment & Plan (1) Fungemia: Plan: Impression: Septic shock - resolved Bacteremia w/ Enterococcus and GBS R/o LLE infection vs CLABSI Fungemia w/ C albicans R/o CLABSI R IJ port in place Hx of hx of UTI, chronic OM of R ankle s/p partial excision of R fibula (10/22/23) complicated by poor wound healing, MS, neurogenic bladder, requiring self-catheterization, HTN, PAF, PE, DVT on Eliquis s/p IVC filte Recommendations: - Stop daptomycin, cefepime and caspofungin - Start fluconazole 800 mg po x 1 for loading followed by 400 mg po qd for fungemia - Start ampicillin 2 gm iv q4 hours for both group B Strep and Enterococcus - F/u repeat blood cultures from 02/06/24 - Remove the R IJ port: possible source or colonized - Anticipate total 2 weeks of antibacterial and antifungal therapy from negative blood cultures granted the repeat blood cultures remain negative and the port is removed - Final rec to follow The LLE wound is shallow, perhaps infected but not deep enough to cause continuous OM. I wonder if the MRI finding is secondary to the trauma more than OM. I have discussed the case w/ the patient and decided to treat as soft tissue infection for now. She will continue to follow up w/ wound care for close monitoring. I do not think there is any indication for baclofen pump removal as there is no obvious evidence of infection at the site per primary team. More than 50% of [id number] visit was spent counseling and coordinating care pertaining to the patient's infection diagnosis, additional work-up, and treatment option(s) as well as potential adverse events of the treatment. (2) Bacteremia: (3) CLABSI (central line-associated bloodstream infection): (4) Wound infection: History of Present Illness History of Present Illness This is a 73 y/o female ([place]), wheelchair-bound, w/ hx of UTI (last urine culture 12/27/23 grew KPN and E coli, treated w/ bactrim), chronic OM of R ankle s/p partial excision of R fibula (10/22/23) complicated by poor wound healing, R IJ port (placed in 08/2023), MS on aubagio, neurogenic bladder, requiring self- catheterization, baclofen pump, HTN, CAD, PAF, PE, DVT on Eliquis s/p IVC filter, chronic aemia, and breast CA, who presented to [facility] on 02/03/24 for 1 day of fever, generalized weakness and diarrhea. Low grade of fever and shock were noted on presentation w/ leukocytosis, bacteremia (Enterococcus and GBS) and fungemia (C albicans). TTE was negative for any vegetation. MRI LLE showed focal edema in the anterior aspect of the medial tibial plateau (osteomyelitis cannot be excluded). She recently injured her L leg stuck in a car door about 2 months ago. She denies any ongoing pain in L leg but a little jab every now and then, last for a second, but daily: it comes and goes on its own. She feels pretty good now. Denies f/c, n/v, abd pain, diarrhea, coughing, cp, sob, or urinary symptoms. She has never had any issue w/ the R IJ port. Rea, patients middle daughter," present at bedside. Allergies Allergy/AdvReac Type Severity Reaction Status Date / Time No Known Allergies Allergy Verified 02/03/24 13:13 Home Medications Medication Instructions Recorded Confirmed Type cholecalciferol (vitamin D3) 25 1,000 units PO QAM 09/18/18 02/03/24 History mcg (1,000 unit) capsule escitalopram oxalate 20 mg tablet 20 mg PO QAM 09/18/18 02/03/24 History (Lexapro) oxybutynin chloride 15 mg 15 mg PO QAM 09/18/18 02/03/24 History tablet,extended release 24 hr prednisone 10 mg tablet 10 mg PO QAM 09/18/18 02/03/24 History omeprazole 40 mg capsule,delayed 40 mg PO QAM 07/06/21 02/03/24 History release teriflunomide 14 mg tablet 14 mg PO QPM 05/13/22 02/03/24 History (Aubagio) doxycycline hyclate 50 mg capsule 50 mg PO Q2D Rosacea 08/10/22 02/03/24 History melatonin 3 mg tablet 3 mg PO HS 03/05/23 02/03/24 History multivitamin 1 tab PO DAILY 03/05/23 02/03/24 History metoprolol tartrate 25 mg tablet 25 mg PO BID 05/08/23 02/03/24 History atorvastatin 20 mg tablet (Lipitor) 20 mg PO QAM 08/04/23 02/03/24 History Baclofen Pump 0 mg SC DIRECTED 08/05/23 02/03/24 History tizanidine 4 mg tablet (Zanaflex) 4 mg PO QID 12/15/23 02/03/24 History apixaban 5 mg tablet (Eliquis) 5 mg PO BID 02/03/24 02/03/24 History Patient History Medical History Rosacea Fever History of recent hospitalization 09/2022 [facility] - sepsis History of blood transfusion Limb alert care status left arm HX: breast cancer Left breast cancer with surgery and chemo/radiation-left arm restriction Osteoarthritis of right shoulder History of GI bleed Upper GIB (2019) felt 2/2 NSAID use CAD (coronary artery disease) Non-obstructive per 06/2021 cardiac cath History of non-ST elevation myocardial infarction (NSTEMI) 06/2021 (had heart cath, no stents) History of supraventricular tachycardia History of pulmonary embolism ~ 6 yrs ago, IVC filter still in place History of DVT (deep vein thrombosis) ~6 yrs ago Hx of gastric ulcer 02/2021 Anemia GERD (gastroesophageal reflux disease) controlled, stable per pt Hypertension controlled, stable per pt Raynaud disease Neurogenic bladder SELF CATH 2-3 X'S PER DAY *RECENT HOSPITALIZATION FOR UTI Osteoporosis Multiple sclerosis Follows with Dr. Walker/[facility] Stable Surgical History Port-A-Cath in place (09/29/23) A-Port Insertion, right internal jugular(Right) - Tristin Lazo, DO S/p reverse total shoulder arthroplasty right: 05/25/22 LMA#4. No postop issues per anesthesia progress note. History of cardiac cath Cardiac cath (07/06/21; [facility]) > Right dominant coronary system. No evidence of aortic stenosis. Normal left ventricular filling pressures. Nonobstructive disease involving the ostial LAD. No evidence of acute coronary syndrome. Approximately 50% ostial stenosis of the LAD. There was some very mild disease at the ostium of the left circumflex. Recommendations: Medical management. History of esophagogastroduodenoscopy (EGD) History of colonoscopy History of tooth extraction History of appendectomy S/P partial hysterectomy History of open reduction and internal fixation (ORIF) procedure "left hip" H/O left mastectomy with lymph node removal>LEFT ARM RESTRICTION S/P IVC filter Presence of intrathecal pump baclofen pump in place--status post revision/replacement 08/10/2022 Family History Mother Heart disorder Other No family history of adverse response to anesthesia Social History Smoking Status: Former smoker Tobacco Type: Cigarettes packs per day: 1; Cigarettes Per Day: stopped in 1977; Second Hand Exposure: No; Do You Dip or Chew Tobacco: No; Hx Alcohol Use: No Hx Substance Use: No Preferred Language: [place] Citizen Communication Ability: Effective Visual Impairment: Limited Hearing Ability: Use of Hearing Aid Cushion Spring Assembler Required: No Beliefs That Will Affect Care: None marital status: / Current Living Situation: Alone Current Living Situation Comment: Daughters are an hour away current occupational status: retired How many Children do You have: 3 Other Information That Helps Us Care for You: No Feels Safe at Home: Yes Safety Concerns: Feels Safe At This Time Childhood Exposure to Second-Hand Smoke: Yes Diet: regular caffeine: Yes Assistive Devices: Walker and Wheelchair Review of Systems as HPI and all others negative Physical Exam Gen: no acute distress Lungs: breathing comfortably on room air Neuro: alert, oriented to time, person, place, conversant R lateral wound healing well w/ small scab in mid wound, no surrounding erythema or warmth L foot/toes swollen w/ faint redness and mild warmth but no tenderness, +shallow coalesced ulcers on L resendez w/ slight malodor (per nursing staff) w/ faint surrounding redness and warmth Results & Data Vital Signs (Past 12 Hours) Vital Signs Temp Pulse Pulse Resp BP BP Pulse Ox 02/07/24 09:48 36.7 C 76 18 152/91 H 97 02/07/24 08:30 72 18 128/98 95 02/07/24 08:15 75 18 128/85 94 02/07/24 08:00 78 02/07/24 07:16 36.7 C 74 18 158/94 H 96 02/07/24 04:42 80 145/84 H 02/07/24 04:40 160 H 02/07/24 02:43 36.9 C 89 18 145/77 H 95 02/06/24 22:58 36.6 C 83 18 152/86 H 93 O2 Del Method 02/07/24 09:48 Room Air 02/07/24 08:30 Room Air 02/07/24 08:15 Room Air 02/07/24 08:00 02/07/24 07:16 Room Air 02/07/24 04:42 02/07/24 04:40 02/07/24 02:43 Room Air 02/06/24 22:58 Room Air Laboratory Results WBC 19K ->-> 8.26K H 8.4 Plt 227K Cr 0.82 CXR (02/03/24): 1. Cardiomegaly with prominence of the pulmonary vasculature. Correlate clinically for evidence of fluid overload/congestive failure. 2. No airspace consolidation or large pleural effusion is identified. MRI LLE (02/05/24): Focal edema in the anterior aspect of the medial tibial plateau, osteomyelitis cannot be excluded. Otherwise there is soft tissue edema without drainable fluid collection. CT A/P (02/05/24): 1. No acute abnormality to explain abdominal pain. 2. Diverticulosis is seen without diverticulitis. BALA (02/07/24): no evidence of vegetation Diagnostic Findings Blood cx (02/02): Streptococcus agalactiae (2: S to amp, cefep, cefotax, ctx, pcn, vanco), Enterococcus sp (1 of 4), C albicans (3 of 4) R ankle surface wound cx (02/02): E faecalis (S to amp, dapto, pcn, vanco) UA (02/02): LE 1+, WBC >30 U cx (02/02): three tyeps of organisms Blood cx (02/03): yeast (1 of 4) Blood cx fungal from CVAD (02/04): NGTD Blood cx (02/05): NGTD Medications Administered Currently on cefepime, daptomycin and caspofungin
--- NOTE | 2024-02-07 11:50 | Hospitalist Progress Note ---
Date of Service February 07, 2024 Assessment & Plan (1) Sepsis: (2) UTI (urinary tract infection): (3) Cellulitis of left lower leg: (4) Elevated troponin: (5) Diarrhea: (6) Hypomagnesemia: (7) Chronic refractory osteomyelitis of ankle: (8) CAD (coronary artery disease): (9) History of pulmonary embolism: (10) S/P IVC filter: (11) Paroxysmal atrial fibrillation: (12) Multiple sclerosis: (13) Neurogenic bladder: (14) Chronic anemia: (15) Rosacea: (16) Breast cancer: Plan Patient is 73-year-old female with PMH HTN, CAD, history NSTEMI, paroxysmal atrial fibrillation, history of PE, DVT, chronic anticoagulation on Eliquis, MS, neurogenic bladder requiring self catheterization, chronic anemia, rosacea, chronic osteomyelitis right lower extremity, history of breast cancer who presented to ER with complaint of tactile fevers, generalized weakness, diarrhea x 1 day. Sepsis Complicated UTI LLE Cellulitis Sepsis. Possible source UTI, possible LLE cellulitis, chronic R ankle wound In ER T: 36.2 C, P: 102, RR: 16, BP 117/76, 96% on room air. WBC: 19, lactate: 1.8, Procalcitonin: 9 CXR: Cardiomegaly with pulmonary vascular prominence Arterial lower extremity Doppler: There is no sonographic evidence of high-grade stenosis or focal vessel cut off seen throughout the arteries of the right or left lower extremity. In ER given 1 L NSS, cefepime, daptomycin. Reevaluation. Patient awake, alert and oriented x 3. BP 115/75, P: 112, R: 20, 94% on room air. Brisk capillary refill. Lungs clear to auscultation, sinus tachycardia. Blood culturex1 from 02/02 growing Group B Beta strep, probable Enterococcus Blood Cx x2 from 02/02 also growing yeast/uvaldo Repeat blood Cx on 02/03 pending- one growing yeast R ankle wound growing E. faecalis Biofire showing E faecalis + and strep + Urine culture with no significant growth, repeat ordered on 02/04, no sig growth Cefepime, vancomycin switched to Cefepime with Daptomycin Caspofungin added on 02/04 Bolus with gentle IVF Stool studies, C-diff if recurrent diarrhea Wound nurse consult ID consulted, appreciate recs -recommended transitioning current regimen to Ampicillin and po fluconazole -remove port -baclofen pump can remain Bacteremia Fungemia Blood culture x1 from 02/02 growing Group B Beta strep Blood Cx x2 from 02/02 also growing yeast/uvaldo Repeat blood Cx ordered on 02/03 and pending- growing yeast R ankle wound growing E. faecalis Urine culture with no significant growth, repeat ordered on 02/04 NGTD Pt with indwelling R IJ port, previously placed for osteomyelitis treatment for RIGHT ankle in Sep 2023 , will likely need removal -General surgery consulted, appreciate recs -removal of port on 02/08 Pt also with indwelling baclofen pump -Pain management previously consulted, appreciate recs for potential removal -pain pump can remain per ID Cardiology consulted, appreciate recs -BALA on 02/06, no noted vegetations Previously on IV Cefepime, Daptomycin and Caspofungin ID consulted-appreciate recs transition to IV Ampicillin and po Fluconazole Septic Shock-Resolved Pt with persistently low blood pressure in setting of above Receiving cautious fluid boluses On stress IV hydrocortisone 50mg q6h Midodrine 5mg TID started, held on 02/05 due to high blood pressures Consider Florinef for additional support if needed If still low, will need pressor support in the ICU Continue to monitor Elevated troponin hs-Troponin:1140-->1375--->1833 CK: 369 Initial EKG sinus rhythm, rate 99, Q waves septal leads repeat EKG sinus tachycardia, rate 116, Q waves septal leads. Q waves septal leads seen in prior EKGs per chart review Patient without chest pain, shortness of breath, dizziness, palpitations, dizziness Likely Type II NSTEMI Echo with EF> 70%, Grade I diastolic dysfunction, mild aortic stenosis Continue metoprolol, atorvastatin Continue Eliquis Cardiology consulted appreciate recs -no procedure -cardiac MRI -continue metoprolol Diarrhea 2 episodes diarrhea day before admission Denies abdominal pain. No further diarrhea today If recurrent diarrhea plan to obtain stool culture, C. difficile CT abdomen pelvis with no acute pathology Electrolyte Abnormalities: -Hypomagnesemia: Magnesium 1.5 on admission. Replete as needed Chronic refractory osteomyelitis of ankle History of chronic osteomyelitis right ankle Right ankle x-ray: No evidence osteomyelitis Chronic right ankle ulcer R ankle wound growing E faecalis Wound nurse consult Transitioned to Ampicillin Elevated CK Rhabdo Ck elevated at 239 IV hydration as above CAD (coronary artery disease) History nonocclusive CAD. History NSTEMI Workup as above Continue metoprolol tartrate with holding parameters, statin History of pulmonary embolism S/P IVC filter History of PE. IVC filter in place. History DVT left lower extremity in 09/2023. Eliquis on hold for upcoming procedures, held on 02/05 (last dose in AM), transitioned to IV heparin Patient denies any missed doses Paroxysmal atrial fibrillation Anticoagulated on Eliquis Current sinus tachycardia Eliquis on hold for upcoming procedures, held on 02/05 (last dose in AM), transitioned to IV heparin Continue metoprolol tartrate, IV heparin as above Metoprolol dose increased overnight for SVT Multiple sclerosis Neurogenic bladder Self catheterization at home Has baclofen pump On Aubagio, prednisone, tizanidine Zuñiga catheter Pain management consult in setting of need for MRI, consider po baclofen dose around imaging Chronic anemia Hgb: 9.6. Baseline in ' Monitor H&H Rosacea On chronic doxycycline. Will hold doxycycline for now as on above antibiotics Breast cancer History left breast cancer s/p surgery, radiation Diet: HH DVT Prophylaxis: On Eliquis Full Code as per discussion with pt Dispo: PT/OT ordered Pt's daughters updated at bedside on 02/05 Admission and Anticipated Discharge Date Admission Date: February 03, 2024 Subjective Denies acute changes at this time. States she feels well. HR WAS ELEVATED OVERNIGHT. Review of Systems Review of Systems: All systems reviewed & are unremarkable except as noted in Subjective Physical Exam Physical Exam: General: Alert, oriented. No acute distress Skin: LLE with erythema to the leg and foot Psych: Appropriate mood and affect Neuro: difficulty with movements in the bed HEENT: NC/AT CV: RRR, Normal s1, s2. No murmurs appreciated Resp: Breath sounds clear bilaterally, no increased effort of breathing. Abdomen: Soft, nontender, nondistended. Extremities: edema in lower extremities bilaterally. Results & Data Results & Data Vital Signs (Past 12 Hours) Vital Signs Temp Pulse Pulse Resp BP BP Pulse Ox 02/07/24 11:00 36.6 C 80 16 122/76 97 02/07/24 09:48 36.7 C 76 18 152/91 H 97 02/07/24 08:30 72 18 128/98 95 02/07/24 08:15 75 18 128/85 94 02/07/24 08:00 78 02/07/24 07:16 36.7 C 74 18 158/94 H 96 02/07/24 04:42 80 145/84 H 02/07/24 04:40 160 H 02/07/24 02:43 36.9 C 89 18 145/77 H 95 O2 Del Method 02/07/24 11:00 Room Air 02/07/24 09:48 Room Air 02/07/24 08:30 Room Air 02/07/24 08:15 Room Air 02/07/24 08:00 02/07/24 07:16 Room Air 02/07/24 04:42 02/07/24 04:40 02/07/24 02:43 Room Air (1) Sepsis Sepsis acute organ dysfunction status: unspecified Sepsis type: sepsis due to unspecified organism Qualified Code(s): A41.9 - Sepsis, unspecified organism (2) UTI (urinary tract infection) Hematuria presence: without hematuria Urinary tract infection type: acute cystitis Qualified Code(s): N30.00 - Acute cystitis without hematuria
[2024-02-07] MEDS: FLUCONAZOLE 100 MG TAB PO ONE (13:15)
[2024-02-07] MEDS: AMPICILLIN 2,000 MG in SODIUM CHLOR 0.9% MINI-B 100 ML IV SCH (13:16)
--- NOTE | 2024-02-07 14:10 | Communication Note ---
Date of Service: February 07, 2024 Following up regarding consult for port removal as patient with bacteremia and fungemia. ID weighed in today and are recommending Port removal. Last Eliquis dose was given on the AM of 02/05. Continue to hold Eliquis. She is currently on heparin gtt. We have tentatively placed the patient on the OR schedule for this upcoming 02/08/23 for port removal. thank you.
--- NOTE | 2024-02-07 15:33 | Pain Management Consultation ---
Date of Consultation February 07, 2024 Assessment & Plan (1) Wound infection: (2) CLABSI (central line-associated bloodstream infection): (3) Fungemia: (4) Traumatic open wound of right lower leg: (5) Chronic refractory osteomyelitis of ankle: (6) Multiple sclerosis: (7) Presence of intrathecal pump: Plan 1. Agree with infectious disease that without neurologic symptoms and with improving lab work there is no indication for removal of her baclofen intrathecal pump at this time. Should she develop neurologic symptoms or there are other concerns by infectious disease or primary team would be happy to revisit this in the future. 2. Continue with tizanidine as previous. 3. Her pump is functioning normally post MRI and no dose changes will be made today. 4. Should hyperbaric oxygen chamber be requested for use in the future would need to evaluate the volume within her pump as it needs to be between 18 and 20 mL per [employer] for safety reasons when undergoing hyperbaric oxygen treatment. Please alert the pain management office should the decision be made to undergo hyperbaric oxygen therapy. 5. Please call if you have any questions. Pain management will sign off. History of Present Illness Attending Physician: Gema Quintanilla MD History of Present Illness 73-year-old female with a history of multiple sclerosis requiring implantation of intrathecal baclofen pump which is currently running at minimal rate at 23.8 mcg daily. She was admitted to the [facility] via the emergency room on 02/03/2024. She has a history of chronic osteomyelitis in her right lower extremity and continues to work with podiatry and the wound clinic. She was noted to have Sheila albicans in 1 of 2 blood cultures taken on 02/04/2024. A BALA performed today was negative for vegetation. Infectious disease consultation performed today recommended removal of the right IJ Mediport initiation of fluconazole, ampicillin, and follow-up repeat blood cultures. The patient feels she is close to her baseline mental status without noted confusion/sedation, nuchal rigidity, meningeal signs. She continues to utilize tizanidine up to 4 times daily as needed. She denies any current issues with her intrathecal baclofen pump. She was most recently seen in the office on 12/15/2023 and her tizanidine was increased due to a feeling of stiffness in her legs. She denies any signs or symptoms of baclofen overdose or withdrawal. Pain Assessment [facility] Combined Pain Scale: 0 - No Pain Allergies Allergy/AdvReac Type Severity Reaction Status Date / Time No Known Allergies Allergy Verified 02/03/24 13:13 Home Medications Medication Instructions Recorded Confirmed Type cholecalciferol (vitamin D3) 25 1,000 units PO QAM 09/18/18 02/03/24 History mcg (1,000 unit) capsule escitalopram oxalate 20 mg tablet 20 mg PO QAM 09/18/18 02/03/24 History (Lexapro) oxybutynin chloride 15 mg 15 mg PO QAM 09/18/18 02/03/24 History tablet,extended release 24 hr prednisone 10 mg tablet 10 mg PO QAM 09/18/18 02/03/24 History omeprazole 40 mg capsule,delayed 40 mg PO QAM 07/06/21 02/03/24 History release teriflunomide 14 mg tablet 14 mg PO QPM 05/13/22 02/03/24 History (Aubagio) doxycycline hyclate 50 mg capsule 50 mg PO Q2D Rosacea 08/10/22 02/03/24 History melatonin 3 mg tablet 3 mg PO HS 03/05/23 02/03/24 History multivitamin 1 tab PO DAILY 03/05/23 02/03/24 History metoprolol tartrate 25 mg tablet 25 mg PO BID 05/08/23 02/03/24 History atorvastatin 20 mg tablet (Lipitor) 20 mg PO QAM 08/04/23 02/03/24 History Baclofen Pump 0 mg SC DIRECTED 08/05/23 02/03/24 History tizanidine 4 mg tablet (Zanaflex) 4 mg PO QID 12/15/23 02/03/24 History apixaban 5 mg tablet (Eliquis) 5 mg PO BID 02/03/24 02/03/24 History Patient History Medical History Rosacea Fever History of recent hospitalization 09/2022 [facility] - sepsis History of blood transfusion Limb alert care status left arm HX: breast cancer Left breast cancer with surgery and chemo/radiation-left arm restriction Osteoarthritis of right shoulder History of GI bleed Upper GIB (2019) felt 2/2 NSAID use CAD (coronary artery disease) Non-obstructive per 06/2021 cardiac cath History of non-ST elevation myocardial infarction (NSTEMI) 06/2021 (had heart cath, no stents) History of supraventricular tachycardia History of pulmonary embolism ~ 6 yrs ago, IVC filter still in place History of DVT (deep vein thrombosis) ~6 yrs ago Hx of gastric ulcer 02/2021 Anemia GERD (gastroesophageal reflux disease) controlled, stable per pt Hypertension controlled, stable per pt Raynaud disease Neurogenic bladder SELF CATH 2-3 X'S PER DAY *RECENT HOSPITALIZATION FOR UTI Osteoporosis Multiple sclerosis Follows with Dr. Walker/[facility] Stable Surgical History Port-A-Cath in place (09/29/23) A-Port Insertion, right internal jugular(Right) - Tristin Lazo, S/p reverse total shoulder arthroplasty right: 05/25/22 LMA#4. No postop issues per anesthesia progress note. History of cardiac cath Cardiac cath (07/06/21; [facility]) > Right dominant coronary system. No evidence of aortic stenosis. Normal left ventricular filling pressures. Nonobstructive disease involving the ostial LAD. No evidence of acute coronary syndrome. Approximately 50% ostial stenosis of the LAD. There was some very mild disease at the ostium of the left circumflex. Recommendations: Medical management. History of esophagogastroduodenoscopy (EGD) History of colonoscopy History of tooth extraction History of appendectomy S/P partial hysterectomy History of open reduction and internal fixation (ORIF) procedure "left hip" H/O left mastectomy with lymph node removal>LEFT ARM RESTRICTION S/P IVC filter Presence of intrathecal pump baclofen pump in place--status post revision/replacement 08/10/2022 Family History Mother Heart disorder Other No family history of adverse response to anesthesia Social History Smoking Status: Former smoker Tobacco Type: Cigarettes packs per day: 1; Cigarettes Per Day: stopped in 1977; Second Hand Exposure: No; Do You Dip or Chew Tobacco: No; Hx Alcohol Use: No Hx Substance Use: No Preferred Language: Faroese Communication Ability: Effective Visual Impairment: Limited Hearing Ability: Use of Hearing Aid Sterile Tech Required: No Beliefs That Will Affect Care: None marital status: / Current Living Situation: Alone Current Living Situation Comment: Daughters are an hour away current occupational status: retired How many Children do You have: 3 Other Information That Helps Us Care for You: No Feels Safe at Home: Yes Safety Concerns: Feels Safe At This Time Childhood Exposure to Second-Hand Smoke: Yes Diet: regular caffeine: Yes Assistive Devices: Walker and Wheelchair Physical Exam Physical Exam: GENERAL: 73 year old white female appearing her stated age. Speech and cognition is intact and appears to be at baseline. Mood and affect is appropriate. Does not appear to be in any acute distress. SKIN: No erythema, drainage, warmth, fluctuance, or skin break down of the intrathecal pump. NEURO: Cranial nerves are grossly intact. No focal deficits noted. LOWER EXTREMITIES: Globally 4/5 strength of the bilateral lower extremities. ABDOMEN: Intrathecal pump is located in the left lower quadrant without mobility or tenderness. Results (Pain Clinic) Laboratory Review Laboratory results: personally reviewed by me and pertinent findings noted below Additional Comments: 02/04/2024 Sheila albicans from 1 of 2 blood cultures. Lab results from 02/04/2024 through 02/07/2024 reviewed. Diagnostic Review MRI: enhanced, non enhanced and reports reviewed MRI Findings: 02/05/24 MR lower leg LT wo/w con CLINICAL HISTORY: LLE erythema TECHNIQUE: Multisequence, multiplanar MR images of the left lower leg were obtained without contrast COMPARISON: Comparison is made to MRI lower leg 05/09/2023 FINDINGS: There is bony edema in the medial tibial plateau anteriorly. Soft tissue edema is seen without drainable fluid collection. A dressing is again seen in the anterior leg. IMPRESSION: Focal edema in the anterior aspect of the medial tibial plateau, osteomyelitis cannot be excluded. Otherwise there is soft tissue edema without drainable fluid collection. CT: enhanced and reports reviewed CT Findings: 02/05/24 CT abd pelvis IV con only CLINICAL HISTORY: N/V abd pain TECHNIQUE: Helical axial images of the abdomen and pelvis were obtained and displayed. Automated dose lowering techniques and/or adjustment according to patient size were utilized for this exam. This exam was performed with intravenous contrast. CT DOSE: 574.96 mGy.cm COMPARISON: Comparison is made to CT abdomen pelvis 03/05/2023 FINDINGS: Lower chest: Small bilateral pleural effusions are seen with underlying atel ectasis. Liver: Focal fatty changes are noted about the falciform ligament. Gallbladder and biliary tree: No calcified gallstones. Normal caliber wall. No intra- or extrahepatic biliary ductal dilation. Pancreas: Unremarkable, no focal lesions. Spleen: Unremarkable. Adrenals: Unremarkable. Kidneys and ureters: Multifocal renal cysts are seen. Bladder: Zuñiga catheter is seen. Reproductive organs: Unremarkable. Bowel: The appendix is normal. Lymph nodes Retroperitoneal: Unremarkable. Pelvic: Unremarkable. Mesenteric: Unremarkable. Peritoneum: Normal. Vessels: Atherosclerotic calcifications are seen. An IVC filter is seen. Abdominal wall: A fat-containing umbilical hernia is seen. There is a left lower abdominal wall hernia containing fat. Bones: Degenerative changes in the visualized spine. Left hip arthroplasty is seen. Healed fractures are seen in the right hip and ribs. IMPRESSION: 1. No acute abnormality to explain abdominal pain. 2. Diverticulosis is seen without diverticulitis. Previous Records Review Previous Records: personally reviewed by me
[2024-02-07 19:16] LABS: ANTI-Xa, UFH(UnfractionatedHep 0.65 IU/ml (0.3-0.7)
[2024-02-07] MEDS: TERIFLUNOMIDE 14 MG TAB PO SCH (20:19)
[2024-02-07] MEDS: METOPROLOL TARTRATE 25 MG TAB PO SCH (20:20)
[2024-02-08 08:25] LABS: Basophils # (auto) 0.01 K/uL (0.00-0.20); Basophils % (auto) 0.2 %; Hematocrit (blood only) 27.5 % (37.0-47.0); Hemoglobin 8.6 g/dl (12.0-16.0); Immature Granulocytes # (auto) 0.05 K/uL (0.01-0.20); Immature Granulocytes % (auto) 0.9 %; Lymphocytes # (auto) 0.44 K/uL (1.20-3.40); Lymphocytes % (auto) 7.5 %; Mean Corpuscular Hemoglobin 25.7 pg (25.0-34.0); Mean Corpuscular Hgb Conc 31.3 g/dL (32.0-36.0); Mean Corpuscular Volume 82.3 fL (80.0-100.0); Mean Platelet Volume 9.9 fL (9.4-12.4); Monocytes # (auto) 0.68 K/uL (0.11-0.59); Monocytes % (auto) 11.6 %; Neutrophils # (auto) 4.68 K/uL (1.40-6.50); Neutrophils % (auto) 79.8 %; Platelet Count 236 K/uL (130-400); RDW Coefficient of Variation 17.4 % (11.5-14.5); Red Blood Count 3.34 M/uL (4.20-5.40); White Blood Count 5.86 K/ul (4.8-10.8)
[2024-02-08] MEDS: FLUCONAZOLE 100 MG TAB PO SCH (08:38)
[2024-02-08 08:42] LABS: Albumin Globulin Ratio 1.1 (0.9-2); Albumin Level 3.1 gm/dl (3.4-5.0); BUN Creatinine Ratio 32.1 (10-20); Bilirubin,Total 0.4 mg/dl (0.2-1.0); Calcium 8.1 mg/dl (8.6-10.3); Creatinine Clr Calc Pharmacy 61.6 ml/min; Est GFR (African American) 84.7 ml/min; Est GFR (Non-African American) 73.1 ml/min; Globulin 2.7 gm/dl (2.5-4.0); Phosphorus 2.9 mg/dl (2.5-4.9); Potassium 3.6 mmol/L (3.5-5.1); Total Protein 5.8 gm/dl (6.0-8.3)
[2024-02-08 08:47] LABS: ANTI-Xa, UFH(UnfractionatedHep 0.67 IU/ml (0.3-0.7)
--- NOTE | 2024-02-08 09:31 | Hospitalist Progress Note ---
Date of Service February 08, 2024 Assessment & Plan (1) Sepsis: (2) UTI (urinary tract infection): (3) Cellulitis of left lower leg: (4) Elevated troponin: (5) Diarrhea: (6) Hypomagnesemia: (7) Chronic refractory osteomyelitis of ankle: (8) CAD (coronary artery disease): (9) History of pulmonary embolism: (10) S/P IVC filter: (11) Paroxysmal atrial fibrillation: (12) Multiple sclerosis: (13) Neurogenic bladder: (14) Chronic anemia: (15) Rosacea: (16) Breast cancer: Plan Patient is 73-year-old female with PMH HTN, CAD, history NSTEMI, paroxysmal atrial fibrillation, history of PE, DVT, chronic anticoagulation on Eliquis, MS, neurogenic bladder requiring self catheterization, chronic anemia, rosacea, chronic osteomyelitis right lower extremity, history of breast cancer who presented to ER with complaint of tactile fevers, generalized weakness, diarrhea x 1 day. Sepsis Complicated UTI LLE Cellulitis Sepsis. Possible source UTI, possible LLE cellulitis, chronic R ankle wound In ER T: 36.2 C, P: 102, RR: 16, BP 117/76, 96% on room air. WBC: 19, lactate: 1.8, Procalcitonin: 9 CXR: Cardiomegaly with pulmonary vascular prominence Arterial lower extremity Doppler: There is no sonographic evidence of high-grade stenosis or focal vessel cut off seen throughout the arteries of the right or left lower extremity. In ER given 1 L NSS, cefepime, daptomycin. Reevaluation. Patient awake, alert and oriented x 3. BP 115/75, P: 112, R: 20, 94% on room air. Brisk capillary refill. Lungs clear to auscultation, sinus tachycardia. Blood culturex1 from 02/02 growing Group B Beta strep, probable Enterococcus Blood Cx x2 from 02/02 also growing yeast/uvaldo Repeat blood Cx on 02/03 pending- one growing yeast R ankle wound growing E. faecalis Biofire showing E faecalis + and strep + Urine culture with no significant growth, repeat ordered on 02/04, no sig growth Cefepime, vancomycin switched to Cefepime with Daptomycin Caspofungin added on 02/04 Bolus with gentle IVF Stool studies, C-diff if recurrent diarrhea Wound nurse consult ID consulted, appreciate recs -recommended transitioning current regimen to Ampicillin and po fluconazole -remove port -baclofen pump can remain Bacteremia Fungemia Blood culture x1 from 02/02 growing Group B Beta strep Blood Cx x2 from 02/02 also growing yeast/uvaldo Repeat blood Cx ordered on 02/03 and pending- growing yeast R ankle wound growing E. faecalis Urine culture with no significant growth, repeat ordered on 02/04 NGTD Pt with indwelling R IJ port, previously placed for osteomyelitis treatment for RIGHT ankle in Sep 2023 , will likely need removal -General surgery consulted, appreciate recs -removal of port on 02/08 Pt also with indwelling baclofen pump -Pain management previously consulted, appreciate recs for potential removal -pain pump can remain per ID Cardiology consulted, appreciate recs -BALA on 02/06, no noted vegetations Previously on IV Cefepime, Daptomycin and Caspofungin ID consulted-appreciate recs transition to IV Ampicillin and po Fluconazole Septic Shock-Resolved Pt with persistently low blood pressure in setting of above Receiving cautious fluid boluses On stress IV hydrocortisone 50mg q6h Midodrine 5mg TID started, held on 02/05 due to high blood pressures Continue to monitor Elevated troponin hs-Troponin:1140-->1375--->1833 CK: 369 Initial EKG sinus rhythm, rate 99, Q waves septal leads repeat EKG sinus tachycardia, rate 116, Q waves septal leads. Q waves septal leads seen in prior EKGs per chart review Patient without chest pain, shortness of breath, dizziness, palpitations, dizziness Likely Type II NSTEMI Echo with EF> 70%, Grade I diastolic dysfunction, mild aortic stenosis Continue metoprolol, atorvastatin Continue Eliquis -> iv heparin as port to be removed Cardiology consulted appreciate recs -no procedure -cardiac MRI -continue metoprolol Diarrhea 2 episodes diarrhea day before admission Denies abdominal pain. No further diarrhea If recurrent diarrhea plan to obtain stool culture, C. difficile CT abdomen pelvis with no acute pathology Electrolyte Abnormalities: -Hypomagnesemia: Magnesium 1.5 on admission. Replete as needed Chronic refractory osteomyelitis of ankle History of chronic osteomyelitis right ankle Right ankle x-ray: No evidence osteomyelitis Chronic right ankle ulcer R ankle wound growing E faecalis Wound nurse consult Transitioned to Ampicillin Elevated CK Rhabdo Ck elevated at 239 IV hydration as above CAD (coronary artery disease) History nonocclusive CAD. History NSTEMI Workup as above Continue metoprolol tartrate with holding parameters, statin History of pulmonary embolism S/P IVC filter History of PE. IVC filter in place. History DVT left lower extremity in 09/2023. Eliquis on hold for upcoming procedures, held on 02/05 (last dose in AM), transitioned to IV heparin Patient denies any missed doses Paroxysmal atrial fibrillation Anticoagulated on Eliquis Current sinus tachycardia Eliquis on hold for upcoming procedures, held on 02/05 (last dose in AM), transitioned to IV heparin Continue metoprolol tartrate, IV heparin as above Metoprolol dose increased overnight for SVT Multiple sclerosis Neurogenic bladder Self catheterization at home Has baclofen pump On Aubagio, prednisone, tizanidine Zuñiga catheter Pain management consult in setting of need for MRI, consider po baclofen dose around imaging Chronic anemia Hgb: 9.6. Baseline in ' Monitor H&H Rosacea On chronic doxycycline. Will hold doxycycline for now as on above antibiotics Breast cancer History left breast cancer s/p surgery, radiation Diet: HH DVT Prophylaxis: On Eliquis Full Code as per discussion with pt Dispo: PT/OT ordered Pt's daughters updated at bedside on 02/05 by previous provider Admission and Anticipated Discharge Date Admission Date: February 03, 2024 Subjective Pt seen in follow up of bacteremia/ fungemia Currently laying in bed in [facility] Denies fever, chills, chest pain, shortness of breath. also denies abd. pain, n/v Currently on iv heparin, cardiology also following Plan for port removal tmrw by gen surgery Review of Systems Review of Systems: All systems reviewed & are unremarkable except as noted in Subjective Physical Exam Physical Exam: General: WD/WN F in NAD HEENT: NC/AT CV: RRR, Normal s1, s2. No murmurs appreciated Resp: Breath sounds clear bilaterally, no increased effort of breathing. Abdomen: Soft, nontender, nondistended. Extremities: + edema in lower extremities bilaterally. Neuro: awake, alert, oriented, answers appropriately, no facial asymmetry, speech fluent, moves extremities Skin: LLE with erythema and edema to the leg and foot Results & Data Results & Data Vital Signs (Past 12 Hours) Vital Signs Temp Pulse Pulse Resp BP BP Pulse Ox 02/08/24 08:34 36.6 C 95 H 18 177/116 H 94 02/08/24 08:00 75 02/08/24 02:37 36.7 C 75 18 162/83 H 94 02/07/24 23:04 36.5 C 82 18 151/81 H 94 02/07/24 22:00 84 O2 Del Method 02/08/24 08:34 Room Air 02/08/24 08:00 02/08/24 02:37 Room Air 02/07/24 23:04 Room Air 02/07/24 22:00 Laboratory Results 02/08/24 02/07/24 02/07/24 Range/Units 08:07 18:45 08:48 WBC 5.86 (4.8-10.8) K/ul RBC 3.34 L (4.20-5.40) M/uL Hgb 8.6 L (12.0-16.0) g/dl Hct 27.5 L (37.0-47.0) % MCV 82.3 (80.0-100.0) fL MCH 25.7 (25.0-34.0) pg MCHC 31.3 L (32.0-36.0) g/dL RDW Std Deviation 52.0 H (36.4-46.3) fL RDW Coeff of Tiffanie 17.4 H (11.5-14.5) % Plt Count 236 (130-400) K/uL MPV 9.9 (9.4-12.4) fL Immature Gran % (Auto) 0.9 % Neut % (Auto) 79.8 % Lymph % (Auto) 7.5 % Grimes % (Auto) 11.6 % Eos % (Auto) 0.0 % Baso % (Auto) 0.2 % Neut # (Auto) 4.68 (1.40-6.50) K/uL Lymph # (Auto) 0.44 L (1.20-3.40) K/uL Grimes # (Auto) 0.68 H (0.11-0.59) K/uL Eos # (Auto) 0.00 (0.00-0.50) K/uL Baso # (Auto) 0.01 (0.00-0.20) K/uL Immature Gran # (Auto) 0.05 (0.01-0.20) K/uL Polychromasia 1+ Ovalocytes 1+ Heparin Anti-Xa, Unfract 0.67 0.65 0.82 H* (0.3-0.7) IU/ml Sodium 139 (136-145) mmol/L Potassium 3.6 (3.5-5.1) mmol/L Chloride 108 H (98-107) mmol/L Carbon Dioxide 24 (21-32) mmol/L Anion Gap 7 (3-11) BUN 26 H (6-23) mg/dl Creatinine 0.81 (0.6-1.2) mg/dl Est Cr Clr Drug Dosing 61.6 ml/min Est GFR ( Amer) 84.7 ml/min Est GFR (Non-Af Amer) 73.1 ml/min BUN/Creatinine Ratio 32.1 H (10-20) Glucose 102 H (70-99(Fasting)) mg/dl Calcium 8.1 L (8.6-10.3) mg/dl Phosphorus 2.9 (2.5-4.9) mg/dl Magnesium 2.0 (1.7-2.4) mg/dl Total Bilirubin 0.4 (0.2-1.0) mg/dl AST 16 (13-39) U/L ALT 22 (7-52) U/L Alkaline Phosphatase 50 (34-104) U/L Total Protein 5.8 L (6.0-8.3) gm/dl Albumin 3.1 L (3.4-5.0) gm/dl Globulin 2.7 (2.5-4.0) gm/dl Albumin/Globulin Ratio 1.1 (0.9-2) Medications Administered Current Inpatient Medications Acetaminophen (Acetaminophen 325 Mg Tab) 650 mg PO Q4H PRN PRN Reason: Pain or Fever Stop: 03/04/24 15:25 Last Admin: 02/03/24 18:15 Dose: 650 mg Atorvastatin Calcium (Atorvastatin 20 Mg Tab) 20 mg PO QAM [facility] Stop: 03/05/24 08:59 Escitalopram Oxalate (Escitalopram Oxalate 20 Mg Tab) 20 mg PO QAM [facility] Stop: 03/05/24 08:59 Last Admin: 02/08/24 08:39 Dose: 20 mg Fluconazole (Fluconazole 100 Mg Tab) 400 mg PO DAILY [facility] Stop: 03/09/24 08:59 Last Admin: 02/08/24 08:38 Dose: 400 mg Heparin Sodium/Dextrose (Heparin Sodium/Dextrose) 25,000 units in 500 mls @ 20 mls/hr IV .Q24H [facility]; Protocol Stop: 03/07/24 20:59 Last Admin: 02/08/24 05:27 Dose: 1,000 units/hr, 20 mls/hr Hydrocortisone Sodium (Succinate 25 mg/ Syringe) 0.5 mls @ 4 mls/min IV Q6H [facility] Stop: 03/04/24 05:59 Last Admin: 02/08/24 05:27 Dose: 4 mls/min Ampicillin Sodium 2,000 mg/ (Sodium Chloride) 100 mls @ 200 mls/hr IV Q4H [facility] Stop: 02/21/24 12:59 Last Infusion: 02/08/24 09:39 Dose: Infused Melatonin (Melatonin 3 Mg Tab) 3 mg PO HS [facility] Stop: 03/04/24 20:59 Last Admin: 02/07/24 20:20 Dose: 3 mg Metoprolol Tartrate (Metoprolol Tartrate 25 Mg Tab) 25 mg PO BID [facility] Stop: 03/08/24 20:59 Last Admin: 02/08/24 08:35 Dose: 25 mg Midodrine (Midodrine Hcl 2.5 Mg Tab) 2.5 mg PO TID@0800,1200,1700 [facility] Stop: 03/08/24 07:59 Ondansetron HCl (Ondansetron Inj 2 Mg/Ml 2 Ml Vial) 4 mg IV Q6H PRN PRN Reason: Nausea Stop: 03/04/24 15:25 Oxybutynin Chloride (Oxybutynin Chloride Xl 5 Mg Tabcr) 15 mg PO [facility] Stop: 03/05/24 08:59 Last Admin: 02/08/24 08:37 Dose: 15 mg Pantoprazole Sodium (Pantoprazole 40 Mg Tab) 40 mg PO [facility]; Protocol Stop: 03/05/24 08:59 Last Admin: 02/08/24 08:37 Dose: 40 mg Prednisone (Prednisone 10 Mg Tablet) 10 mg PO [facility] Stop: 03/05/24 08:59 Teriflunomide (Teriflunomide 14 Mg Tab) 14 mg PO QPM [facility] Stop: 03/08/24 20:59 Last Admin: 02/07/24 20:19 Dose: 14 mg Tizanidine HCl (Tizanidine Hcl 4 Mg Tablet) 4 mg PO QID [facility] Stop: 03/04/24 16:59 Last Admin: 02/08/24 08:37 Dose: 4 mg Vitamin D (Cholecalciferol 25 Mcg (1000 Units) Tab) 25 mcg PO QAM [facility] Stop: 03/05/24 08:59 Last Admin: 02/08/24 08:38 Dose: 25 mcg (1) Sepsis Sepsis acute organ dysfunction status: unspecified Sepsis type: sepsis due to unspecified organism Qualified Code(s): A41.9 - Sepsis, unspecified organism (2) UTI (urinary tract infection) Hematuria presence: without hematuria Urinary tract infection type: acute cystitis Qualified Code(s): N30.00 - Acute cystitis without hematuria
--- NOTE | 2024-02-08 10:52 | Surgery Progress Note ---
Date of Service February 08, 2024 Assessment & Plan (1) CLABSI (central line-associated bloodstream infection): Plan: Will plan on mediport removal tomorrow Stop heparin 6 hours prior to procedure Consent was obtained, risks discussed including, bleeding, infection, inability to remove the port Admission and Anticipated Discharge Date Admission Date: February 03, 2024 Subjective Pt seen and examined. No acute events overnight. Review of Systems Constitutional: no fever and no chills Physical Exam Constitutional: WD/WN, vitals as above Chest (Breasts): Additional Comments: Port in place, no erythema or drainage Results & Data Vital Signs (Past 12 Hours) Vital Signs Temp Pulse Pulse Resp BP BP Pulse Ox 02/08/24 09:40 69 116/72 02/08/24 08:34 36.6 C 95 H 18 177/116 H 94 02/08/24 08:00 75 02/08/24 02:37 36.7 C 75 18 162/83 H 94 02/07/24 23:04 36.5 C 82 18 151/81 H 94 O2 Del Method 02/08/24 09:40 02/08/24 08:34 Room Air 02/08/24 08:00 02/08/24 02:37 Room Air 02/07/24 23:04 Room Air PG Care Time/CCT Total # of Minutes Spent Total Time Spent with Patient: Total time spent is greater than 50% in coordination of care (as documented) at patient's floor/unit and/or counseling patient: Coding Level of Care Code 65995 SUB INP/OBS CARE 12/22MIN Diagnoses CLABSI (central line-associated bloodstream infection) T80.211A
--- NOTE | 2024-02-08 13:25 | Cardiology Progress Note ---
Date of Service February 08, 2024 Assessment & Plan (1) Myocardial strain: (2) Tachycardia: (3) Sepsis: Plan Fungemia, group B strep bacteremia Paroxysmal supraventricular tachycardia Paroxysmal atrial fibrillation History of DVT -Infectious disease input noted and appreciated. Continue antibiotics. -Midodrine on hold as blood pressure has rebounded and has been stable without additional low blood pressure readings for the last few days -Patient metoprolol tartrate to 25 mg 3 times daily -Patient is on heparin bridge given her history of DVT and paroxysmal atrial fibrillation. Plan is to hold the heparin at 1:30 AM 6 hours prior to port removal. J Carlos Vargas DO Admission and Anticipated Discharge Date Admission Date: February 03, 2024 Subjective Patient seen in follow-up. Had a 3-minute episode of atrial fibrillation from 827 until 8:30 AM with spontaneous conversion back to sinus rhythm in the 70s. Otherwise feeling well. Denies fevers or chills. Physical Exam Constitutional: + ill appearing and + frail appearing; n o acute distress Respiratory: normal respiratory effort, lungs clear to auscultation Cardiovascular: Rate/Rhythm: regular rhythm and + tachycardic Heart Sounds: + murmur (2/6 systolic murmur ) Extremities: + edema (left lower leg and left pedal edema ) Gastrointestinal (Abdomen): normal bowel sounds, soft, nontender, no hepatosplenomegaly Psychiatric: A+Ox3, euthymic affect Results & Data Vital Signs (Past 12 Hours) Vital Signs Temp Pulse Pulse Resp BP BP Pulse Ox 02/08/24 11:05 36.6 C 85 18 147/77 H 94 02/08/24 09:40 69 116/72 02/08/24 08:34 36.6 C 95 H 18 177/116 H 94 02/08/24 08:00 75 02/08/24 02:37 36.7 C 75 18 162/83 H 94 O2 Del Method 02/08/24 11:05 Room Air 02/08/24 09:40 02/08/24 08:34 Room Air 02/08/24 08:00 02/08/24 02:37 Room Air Laboratory Results Cardiac Enzymes 02/08/24 Range/Units 08:07 AST 16 (13-39) U/L CBC 02/08/24 Range/Units 08:07 WBC 5.86 (4.8-10.8) K/ul RBC 3.34 L (4.20-5.40) M/uL Hgb 8.6 L (12.0-16.0) g/dl Hct 27.5 L (37.0-47.0) % Plt Count 236 (130-400) K/uL Neut # (Auto) 4.68 (1.40-6.50) K/uL Lymph # (Auto) 0.44 L (1.20-3.40) K/uL [place] # (Auto) 0.68 H (0.11-0.59) K/uL Eos # (Auto) 0.00 (0.00-0.50) K/uL Baso # (Auto) 0.01 (0.00-0.20) K/uL Comprehensive Metabolic Panel 02/08/24 Range/Units 08:07 Sodium 139 (136-145) mmol/L Potassium 3.6 (3.5-5.1) mmol/L Chloride 108 H (98-107) mmol/L Carbon Dioxide 24 (21-32) mmol/L BUN 26 H (6-23) mg/dl Creatinine 0.81 (0.6-1.2) mg/dl Glucose 102 H (70-99(Fasting)) mg/dl Calcium 8.1 L (8.6-10.3) mg/dl AST 16 (13-39) U/L ALT 22 (7-52) U/L Alkaline Phosphatase 50 (34-104) U/L Total Protein 5.8 L (6.0-8.3) gm/dl Albumin 3.1 L (3.4-5.0) gm/dl Intake and Output 02/07/24 02/08/24 02/08/24 22:59 06:59 14:59 Intake Total 400 / 1737.767 617.767 / 1737.767 189.333 / 189.333 Output Total 350 / 1300 550 / 1300 Balance 50 / 437.767 67.767 / 437.767 189.333 / 189.333 Intake: IV 200 / 1077.767 517.767 / 1077.767 189.333 / 189.333 Ampicillin 2,000 mg In Sodium 200 / 500 200 / 500 100 / 100 Chlor 0.9% Mini-B 100 ml @ 200 mls/hr IV Q4H [facility] Rx#:[id number] Heparin Sodium/Dextrose 25,000 317.767 / 317.767 89.333 / 89.333 units In 500 ml @ 1,000 UNITS/ HR 20 mls/hr IV .Q24H [facility] Rx#: [id number] Oral 200 / 660 100 / 660 Output: Urine Amount (Catheter) 350 / 1300 550 / 1300 Zuñiga/Indwelling 350 / 1300 550 / 1300 Other: Weight 71 kg (3) Sepsis Sepsis acute organ dysfunction status: unspecified Sepsis type: sepsis due to unspecified organism Qualified Code(s): A41.9 - Sepsis, unspecified organism
[2024-02-08] MEDS: METOPROLOL TARTRATE 25 MG TAB PO SCH ×2 (13:40→14:25)
[2024-02-09] MEDS: LABETALOL HCL IV 5 MG/ML 20ML IV STA (02:52)
--- NOTE | 2024-02-09 06:18 | Hospitalist Progress Note ---
Date of Service February 09, 2024 Assessment & Plan (1) Sepsis: (2) UTI (urinary tract infection): (3) Cellulitis of left lower leg: (4) Elevated troponin: (5) Diarrhea: (6) Hypomagnesemia: (7) Chronic refractory osteomyelitis of ankle: (8) CAD (coronary artery disease): (9) History of pulmonary embolism: (10) S/P IVC filter: (11) Paroxysmal atrial fibrillation: (12) Multiple sclerosis: (13) Neurogenic bladder: (14) Chronic anemia: (15) Rosacea: (16) Breast cancer: Plan Patient is 73-year-old female with PMH HTN, CAD, history NSTEMI, paroxysmal atrial fibrillation, history of PE, DVT, chronic anticoagulation on Eliquis, MS, neurogenic bladder requiring self catheterization, chronic anemia, rosacea, chronic osteomyelitis right lower extremity, history of breast cancer who presented to ER with complaint of tactile fevers, generalized weakness, diarrhea x 1 day. Sepsis Complicated UTI LLE Cellulitis Sepsis. Possible source UTI, possible LLE cellulitis, chronic R ankle wound In ER T: 36.2 C, P: 102, RR: 16, BP 117/76, 96% on room air. WBC: 19, lactate: 1.8, Procalcitonin: 9 CXR: Cardiomegaly with pulmonary vascular prominence Arterial lower extremity Doppler: There is no sonographic evidence of high-grade stenosis or focal vessel cut off seen throughout the arteries of the right or left lower extremity. In ER given 1 L NSS, cefepime, daptomycin. Reevaluation. Patient awake, alert and oriented x 3. BP 115/75, P: 112, R: 20, 94% on room air. Brisk capillary refill. Lungs clear to auscultation, sinus tachycardia. Blood culturex1 from 02/02 growing Group B Beta strep, probable Enterococcus Blood Cx x2 from 02/02 also growing yeast/uvaldo Repeat blood Cx on 02/03 pending- one growing yeast R ankle wound growing E. faecalis Biofire showing E faecalis + and strep + Urine culture with no significant growth, repeat ordered on 02/04, no sig growth Cefepime, vancomycin switched to Cefepime with Daptomycin Caspofungin added on 02/04 Bolus with gentle IVF Stool studies, C-diff if recurrent diarrhea Wound nurse consult ID consulted, appreciate recs -recommended transitioning current regimen to Ampicillin and po fluconazole -remove port (port now removed - 02/08) -baclofen pump can remain Bacteremia Fungemia Blood culture x1 from 02/02 growing Group B Beta strep Blood Cx x2 from 02/02 also growing yeast/uvaldo Repeat blood Cx ordered on 02/03 and pending- growing yeast R ankle wound growing E. faecalis Urine culture with no significant growth, repeat ordered on 02/04 NGTD Pt with indwelling R IJ port, previously placed for osteomyelitis treatment for RIGHT ankle in Sep 2023 , will likely need removal -General surgery consulted, appreciate recs - s/p removal of port on 02/08 Pt also with indwelling baclofen pump -Pain management previously consulted, appreciate recs for potential removal -pain pump can remain per ID Cardiology consulted, appreciate recs -BALA on 02/06, no noted vegetations Previously on IV Cefepime, Daptomycin and Caspofungin ID consulted-appreciate recs transition to IV Ampicillin and po Fluconazole Septic Shock-Resolved Pt with persistently low blood pressure in setting of above Receiving cautious fluid boluses On stress IV hydrocortisone 50mg q6h Midodrine 5mg TID started, held on 02/05 due to high blood pressures Continue to monitor Elevated troponin hs-Troponin:1140-->1375--->1833 CK: 369 Initial EKG sinus rhythm, rate 99, Q waves septal leads repeat EKG sinus tachycardia, rate 116, Q waves septal leads. Q waves septal leads seen in prior EKGs per chart review Patient without chest pain, shortness of breath, dizziness, palpitations, dizziness Likely Type II NSTEMI Echo with EF> 70%, Grade I diastolic dysfunction, mild aortic stenosis Continue metoprolol, atorvastatin Continue Eliquis -> iv heparin as port to be removed - plan to go back on eliquis Cardiology consulted appreciate recs -no procedure -cardiac MRI -continue metoprolol Diarrhea 2 episodes diarrhea day before admission Denies abdominal pain. No further diarrhea If recurrent diarrhea plan to obtain stool culture, C. difficile CT abdomen pelvis with no acute pathology Electrolyte Abnormalities: -Hypomagnesemia: Magnesium 1.5 on admission. Replete and monitor Chronic refractory osteomyelitis of ankle History of chronic osteomyelitis right ankle Right ankle x-ray: No evidence osteomyelitis Chronic right ankle ulcer R ankle wound growing E faecalis Wound nurse consult Transitioned to Ampicillin Elevated CK Rhabdo Ck elevated at 239 IV hydration as above CAD (coronary artery disease) History nonocclusive CAD. History NSTEMI Workup as above Continue metoprolol tartrate with holding parameters, statin History of pulmonary embolism S/P IVC filter History of PE. IVC filter in place. History DVT left lower extremity in 09/2023. Eliquis on hold for upcoming procedures, held on 02/05 (last dose in AM), transitioned to IV heparin - plan to go back to eliquis now Patient denies any missed doses Paroxysmal atrial fibrillation Anticoagulated on Eliquis Current sinus tachycardia Eliquis on hold for upcoming procedures, held on 02/05 (last dose in AM), transitioned to IV heparin, as above Continue metoprolol tartrate, IV heparin as above Metoprolol dose increased overnight for SVT Multiple sclerosis Neurogenic bladder Self catheterization at home Has baclofen pump On Aubagio, prednisone, tizanidine Zuñiga catheter Pain management consult in setting of need for MRI, consider po baclofen dose around imaging Chronic anemia Hgb: 9.6. Baseline in ' Monitor H&H Rosacea On chronic doxycycline. Will hold doxycycline for now as on above antibiotics Breast cancer History left breast cancer s/p surgery, radiation Diet: HH DVT Prophylaxis: On Eliquis Full Code as per discussion with pt Dispo: PT/OT ordered Pt's daughters updated at bedside on 02/05 by previous provider Admission and Anticipated Discharge Date Admission Date: February 03, 2024 Subjective Pt seen in follow up of bacteremia/ fungemia Currently laying in bed in NAD Denies fever, chills, chest pain, shortness of breath. also denies abd. pain, n/v S/p port removal today by gen surgery Feeling well, eating breakfast Review of Systems Review of Systems: All systems reviewed & are unremarkable except as noted in Subjective Physical Exam Physical Exam: General: WD/WN F in NAD HEENT: NC/AT CV: RRR, Normal s1, s2. No murmurs appreciated Resp: Breath sounds clear bilaterally, no increased effort of breathing. Abdomen: Soft, nontender, nondistended. Extremities: + edema in lower extremities bilaterally. Neuro: awake, alert, oriented, answers appropriately, no facial asymmetry, speech fluent, moves extremities Skin: LLE with erythema and edema to the leg and foot- improved Results & Data Results & Data Vital Signs (Past 12 Hours) Vital Signs Temp Pulse Pulse Resp BP BP BP 02/09/24 03:08 72 148/82 H 02/09/24 03:07 72 148/82 H 02/09/24 02:52 64 180/103 H 02/09/24 02:25 36.3 C L 64 18 180/103 H 02/09/24 00:15 02/08/24 23:24 36.3 C L 72 16 153/87 H 02/08/24 19:41 36.3 C L 70 18 132/83 Pulse Ox O2 Del Method 02/09/24 03:08 02/09/24 03:07 02/09/24 02:52 02/09/24 02:25 95 Room Air 02/09/24 00:15 Room Air 02/08/24 23:24 95 Room Air 02/08/24 19:41 94 Room Air Laboratory Results 02/09/24 02/09/24 02/08/24 Range/Units 08:09 06:58 08:07 WBC 7.65 5.86 (4.8-10.8) K/ul RBC 3.26 L 3.34 L (4.20-5.40) M/uL Hgb 8.6 L 8.6 L (12.0-16.0) g/dl Hct 26.9 L 27.5 L (37.0-47.0) % MCV 82.5 82.3 (80.0-100.0) fL MCH 26.4 25.7 (25.0-34.0) pg MCHC 32.0 31.3 L (32.0-36.0) g/dL RDW Std Deviation 51.8 H 52.0 H (36.4-46.3) fL RDW Coeff of [place] 17.5 H 17.4 H (11.5-14.5) % Plt Count 267 236 (130-400) K/uL MPV 9.9 9.9 (9.4-12.4) fL Immature Gran % (Auto) 2.0 0.9 % Neut % (Auto) 82.1 79.8 % Lymph % (Auto) 6.9 7.5 % [place] % (Auto) 8.5 11.6 % Eos % (Auto) 0.4 0.0 % Baso % (Auto) 0.1 0.2 % Neut # (Auto) 6.28 4.68 (1.40-6.50) K/uL Lymph # (Auto) 0.53 L 0.44 L (1.20-3.40) K/uL [place] # (Auto) 0.65 H 0.68 H (0.11-0.59) K/uL Eos # (Auto) 0.03 0.00 (0.00-0.50) K/uL Baso # (Auto) 0.01 0.01 (0.00-0.20) K/uL Immature Gran # (Auto) 0.15 0.05 (0.01-0.20) K/uL Absolute Nucleated RBC 0.02 (0.00-0.12) K/uL Nucleated RBC % (auto) 0.3 % Heparin Anti-Xa, Unfract < 0.10 L 0.67 (0.3-0.7) IU/ml Sodium 139 139 (136-145) mmol/L Potassium 3.3 L 3.6 (3.5-5.1) mmol/L Chloride 106 108 H (98-107) mmol/L Carbon Dioxide 27 24 (21-32) mmol/L Anion Gap 6 7 (3-11) BUN 20 26 H (6-23) mg/dl Creatinine 0.77 0.81 (0.6-1.2) mg/dl Est Cr Clr Drug Dosing 64.0 61.6 ml/min Est GFR ( Amer) 90.0 84.7 ml/min Est GFR (Non-Af Amer) 77.7 73.1 ml/min BUN/Creatinine Ratio 26.0 H 32.1 H (10-20) Glucose 94 102 H (70-99(Fasting)) mg/dl POC Glucose 107 H (70-99) mg/dl Calcium 8.1 L 8.1 L (8.6-10.3) mg/dl Phosphorus 3.1 2.9 (2.5-4.9) mg/dl Magnesium 1.9 2.0 (1.7-2.4) mg/dl Total Bilirubin 0.3 0.4 (0.2-1.0) mg/dl AST 14 16 (13-39) U/L ALT 19 22 (7-52) U/L Alkaline Phosphatase 48 50 (34-104) U/L Total Protein 5.6 L 5.8 L (6.0-8.3) gm/dl Albumin 2.9 L 3.1 L (3.4-5.0) gm/dl Globulin 2.7 2.7 (2.5-4.0) gm/dl Albumin/Globulin Ratio 1.1 1.1 (0.9-2) Medications Administered Current Inpatient Medications Acetaminophen (Acetaminophen 325 Mg Tab) 650 mg PO Q4H PRN PRN Reason: Pain or Fever Stop: 03/04/24 15:25 Last Admin: 02/03/24 18:15 Dose: 650 mg Atorvastatin Calcium (Atorvastatin 20 Mg Tab) 20 mg PO QAM [facility] Stop: 03/05/24 08:59 Escitalopram Oxalate (Escitalopram Oxalate 20 Mg Tab) 20 mg PO QAM [facility] Stop: 03/05/24 08:59 Last Admin: 02/08/24 08:39 Dose: 20 mg Fluconazole (Fluconazole 100 Mg Tab) 400 mg PO DAILY [facility] Stop: 03/09/24 08:59 Last Admin: 02/08/24 08:38 Dose: 400 mg Heparin Sodium/Dextrose (Heparin Sodium/Dextrose) 25,000 units in 500 mls @ 0 mls/hr IV .Q0M [facility]; Protocol Stop: 03/07/24 20:59 Last Titration: 02/09/24 01:00 Dose: 0 units/hr, 0 mls/hr Hydrocortisone Sodium (Succinate 25 mg/ Syringe) 0.5 mls @ 4 mls/min IV Q6H [facility] Stop: 03/04/24 05:59 Last Admin: 02/09/24 05:15 Dose: 4 mls/min Ampicillin Sodium 2,000 mg/ (Sodium Chloride) 100 mls @ 200 mls/hr IV Q4H [facility] Stop: 02/21/24 12:59 Last Infusion: 02/09/24 06:01 Dose: Infused Melatonin (Melatonin 3 Mg Tab) 3 mg PO HS [facility] Stop: 03/04/24 20:59 Last Admin: 02/08/24 21:35 Dose: 3 mg Metoprolol Tartrate (Metoprolol Tartrate 25 Mg Tab) 25 mg PO TID [facility] Stop: 03/09/24 13:59 Last Admin: 02/08/24 21:35 Dose: 25 mg Midodrine (Midodrine Hcl 2.5 Mg Tab) 2.5 mg PO TID@0800,1200,1700 [facility] Stop: 03/08/24 07:59 Ondansetron HCl (Ondansetron Inj 2 Mg/Ml 2 Ml Vial) 4 mg IV Q6H PRN PRN Reason: Nausea Stop: 03/04/24 15:25 Oxybutynin Chloride (Oxybutynin Chloride Xl 5 Mg Tabcr) 15 mg PO [facility] Stop: 03/05/24 08:59 Last Admin: 02/08/24 08:37 Dose: 15 mg Pantoprazole Sodium (Pantoprazole 40 Mg Tab) 40 mg PO [facility]; Protocol Stop: 03/05/24 08:59 Last Admin: 02/08/24 08:37 Dose: 40 mg Prednisone (Prednisone 10 Mg Tablet) 10 mg PO [facility] Stop: 03/05/24 08:59 Teriflunomide (Teriflunomide 14 Mg Tab) 14 mg PO QPM [facility] Stop: 03/08/24 20:59 Last Admin: 02/08/24 21:35 Dose: 14 mg Tizanidine HCl (Tizanidine Hcl 4 Mg Tablet) 4 mg PO QID [facility] Stop: 03/04/24 16:59 Last Admin: 02/08/24 21:34 Dose: 4 mg Vitamin D (Cholecalciferol 25 Mcg (1000 Units) Tab) 25 mcg PO QAM [facility] Stop: 03/05/24 08:59 Last Admin: 02/08/24 08:38 Dose: 25 mcg (1) Sepsis Sepsis acute organ dysfunction status: unspecified Sepsis type: sepsis due to unspecified organism Qualified Code(s): A41.9 - Sepsis, unspecified organism (2) UTI (urinary tract infection) Hematuria presence: without hematuria Urinary tract infection type: acute cystitis Qualified Code(s): N30.00 - Acute cystitis without hematuria
[2024-02-09] MEDS ORDERED: PROPOFOL IV EMULSION 10 MG/ML 20 ML VIAL IV ONE (06:51)
[2024-02-09] MEDS ORDERED: MIDAZOLAM HCL 1 MG/ML 2ML VIAL ONE (06:51)
[2024-02-09] MEDS ORDERED: LIDOCAINE 2% 2 ML VIAL/AMP(20MG/ML) INFIL ONE (06:51)
[2024-02-09] MEDS ORDERED: fentaNYL citrate PF 100 MCG/2 ML VIAL ONE (06:51)
[2024-02-09] MEDS: LACTATED RINGER'S 1,000 ML IV SCH (06:56)
[2024-02-09] MEDS ORDERED: ePHEDrine sulfate 50 MG/ML AMP IV PRN (06:58)
[2024-02-09] MEDS ORDERED: ATROPINE SULFATE 0.1 MG/ML 10ML SYR IV PRN (06:58)
[2024-02-09] MEDS ORDERED: fentaNYL citrate PF 100 MCG/2 ML VIAL IV PRN (06:58)
[2024-02-09] MEDS ORDERED: ONDANSETRON INJ 2 MG/ML 2 ML VIAL IV PRN (06:58)
[2024-02-09] MEDS: ALBUT/IPRATROP 3MG/0.5MG NEB 3 ML VIAL NEB STA (07:20)
--- NOTE | 2024-02-09 07:21 | Anesthesiology Consultation ---
Date of Service February 09, 2024 Assessment & Plan Chart Review Chart Review: Acceptable Risk for Surgery and Patient NOT seen in Pre Admission Testing Consults Requested none ASA ASA4 Proposed Anesthesia Anesthesia Type: MAC Risk / Benefits Reviewed With: PT / POA / Parent / Guardian, Accepts Plan and Informed Consent Obtained History Surgery Operation Date: 02/07/24 07:45 Proposed Procedures p Transesophageal Echo w/Anesthesia - Toby Vargas DO Operation Date: 02/09/24 07:30 Proposed Procedures p Mediport Removal - Tristin Lazo DO Height/Weight Height: 5 ft 4 in Weight: 69.1 kg Allergies Allergy/AdvReac Type Severity Reaction Status Date / Time No Known Allergies Allergy Verified 02/03/24 13:13 Medications Home Medications Medication Instructions Recorded Confirmed Last Taken cholecalciferol (vitamin D3) 25 1,000 units PO QAM 09/18/18 02/03/24 02/02/24 mcg (1,000 unit) capsule escitalopram oxalate 20 mg tablet 20 mg PO QAM 09/18/18 02/03/24 02/02/24 (Lexapro) oxybutynin chloride 15 mg 15 mg PO QAM 09/18/18 02/03/24 02/02/24 tablet,extended release 24 hr prednisone 10 mg tablet 10 mg PO QAM 09/18/18 02/03/24 02/03/24 omeprazole 40 mg capsule,delayed 40 mg PO QAM 07/06/21 02/03/24 02/03/24 release teriflunomide 14 mg tablet 14 mg PO QPM 05/13/22 02/03/24 02/02/24 (Aubagio) doxycycline hyclate 50 mg capsule 50 mg PO Q2D Rosacea 08/10/22 02/03/24 02/02/24 melatonin 3 mg tablet 3 mg PO HS 03/05/23 02/03/24 02/02/24 multivitamin 1 tab PO DAILY 03/05/23 02/03/24 02/02/24 metoprolol tartrate 25 mg tablet 25 mg PO BID 05/08/23 02/03/24 02/03/24 atorvastatin 20 mg tablet (Lipitor) 20 mg PO QAM 08/04/23 02/03/24 02/03/24 Baclofen Pump 0 mg SC DIRECTED 08/05/23 02/03/24 02/02/24 tizanidine 4 mg tablet (Zanaflex) 4 mg PO QID 12/15/23 02/03/24 02/02/24 apixaban 5 mg tablet (Eliquis) 5 mg PO BID 02/03/24 02/03/24 02/03/24 Active Medications Generic Name Dose Route Start Last Admin Trade Name Terrellq PRN Reason Stop Dose Admin Acetaminophen 650 mg 02/03/24 15:26 02/03/24 18:15 Acetaminophen 325 Mg Tab PO 03/04/24 15:25 650 mg Q4H PRN Administration Pain or Fever Escitalopram Oxalate 20 mg 02/04/24 09:00 02/08/24 08:39 Escitalopram Oxalate 20 Mg Tab PO 03/05/24 08:59 20 mg QAM MICHELLE Administration Fluconazole 400 mg 02/08/24 09:00 02/08/24 08:38 Fluconazole 100 Mg Tab PO 03/09/24 08:59 400 mg DAILY MICHELLE Administration Heparin Sodium/Dextrose 25,000 units in 500 mls @ 0 mls/hr 02/06/24 21:00 02/09/24 01:00 Heparin Sodium/Dextrose IV 03/07/24 20:59 0 units/hr .Q0M MICHELLE 0 mls/hr Titration Protocol 0 UNITS/HR Hydrocortisone Sodium 0.5 mls @ 4 mls/min 02/07/24 06:00 02/09/24 05:15 Succinate 25 mg/ Syringe IV 03/04/24 05:59 4 mls/min Q6H MICHELLE Administration Ampicillin Sodium 2,000 mg/ 100 mls @ 200 mls/hr 02/07/24 13:00 02/09/24 06:01 Sodium Chloride IV 02/21/24 12:59 Infused Q4H MICHELLE Infusion Lactated Ringer's 1,000 mls @ 15 mls/hr 02/09/24 07:00 02/09/24 06:56 Lr IV 03/10/24 06:59 15 mls/hr .Q24H MICHELLE Administration Melatonin 3 mg 02/03/24 21:00 02/08/24 21:35 Melatonin 3 Mg Tab PO 03/04/24 20:59 3 mg HS MICHELLE Administration Metoprolol Tartrate 25 mg 02/08/24 14:00 02/08/24 21:35 Metoprolol Tartrate 25 Mg Tab PO 03/09/24 13:59 25 mg TID MICHELLE Administration Oxybutynin Chloride 15 mg 02/04/24 09:00 02/08/24 08:37 Oxybutynin Chloride Xl 5 Mg Tabcr PO 03/05/24 08:59 15 mg QAM MICHELLE Administration Pantoprazole Sodium 40 mg 02/04/24 09:00 02/08/24 08:37 Pantoprazole 40 Mg Tab PO 03/05/24 08:59 40 mg QAM MICHELLE Administration Protocol Teriflunomide 14 mg 02/07/24 21:00 02/08/24 21:35 Teriflunomide 14 Mg Tab PO 03/08/24 20:59 14 mg QPM MICHELLE Administration Tizanidine HCl 4 mg 02/03/24 17:00 02/08/24 21:34 Tizanidine Hcl 4 Mg Tablet PO 03/04/24 16:59 4 mg QID MICHELLE Administration Vitamin D 25 mcg 02/04/24 09:00 02/08/24 08:38 Cholecalciferol 25 Mcg (1000 Units) Tab PO 03/05/24 08:59 25 mcg QAM MICHELLE Administration NPO Date Last Intake of Fluids: 02/08/24 Time Last Intake of Fluids: 21:00 Date Last Intake of Solids: 02/08/24 Time Last Intake of Solids: 18:30 Past Medical History Medical History Rosacea Fever History of recent hospitalization 09/2022 [facility] - sepsis History of blood transfusion Limb alert care status left arm HX: breast cancer Left breast cancer with surgery and chemo/radiation-left arm restriction Osteoarthritis of right shoulder History of GI bleed Upper GIB (2019) felt 2/2 NSAID use CAD (coronary artery disease) Non-obstructive per 06/2021 cardiac cath History of non-ST elevation myocardial infarction (NSTEMI) 06/2021 (had heart cath, no stents) History of supraventricular tachycardia History of pulmonary embolism ~ 6 yrs ago, IVC filter still in place History of DVT (deep vein thrombosis) ~6 yrs ago Hx of gastric ulcer 02/2021 Anemia GERD (gastroesophageal reflux disease) controlled, stable per pt Hypertension controlled, stable per pt Raynaud disease Neurogenic bladder SELF CATH 2-3 X'S PER DAY *RECENT HOSPITALIZATION FOR UTI Osteoporosis Multiple sclerosis Follows with Dr. Walker/[facility] Stable Past Family History Family History Mother Heart disorder Other No family history of adverse response to anesthesia Past Surgical History Surgical History Port-A-Cath in place (09/29/23) A-Port Insertion, right internal jugular(Right) - Tristin Lazo, S/p reverse total shoulder arthroplasty right: 05/25/22 LMA#4. No postop issues per anesthesia progress note. History of cardiac cath Cardiac cath (07/06/21; [facility]) > Right dominant coronary system. No evidence of aortic stenosis. Normal left ventricular filling pressures. Nonobstructive disease involving the ostial LAD. No evidence of acute coronary syndrome. Approximately 50% ostial stenosis of the LAD. There was some very mild disease at the ostium of the left circumflex. Recommendations: Medical management. History of esophagogastroduodenoscopy (EGD) History of colonoscopy History of tooth extraction History of appendectomy S/P partial hysterectomy History of open reduction and internal fixation (ORIF) procedure "left hip" H/O left mastectomy with lymph node removal>LEFT ARM RESTRICTION S/P IVC filter Presence of intrathecal pump baclofen pump in place--status post revision/replacement 08/10/2022 Past Anesthesia History No Hx of Anesthesia Complications and No Family Hx of Anesthesia Complications History of PONV No Hx of PONV and No Hx of Motion Sickness Social History Smoking Status: Former smoker tobacco type: cigarettes Smoking cigarettes per day: stopped in 1977 Do You Dip or Chew Tobacco: No Hx Alcohol Use: No Alcohol type: wine alcohol intake frequency: holidays/special occasions only Hx Substance Use: No substance use type: does not use Review of Systems ROS Unobtainable: All systems reviewed & are unremarkable except as noted in HPI & below Physical Exam Vital Signs Last Vital Signs Temp 36.7 C 02/09/24 06:49 Pulse 72 02/09/24 07:18 Resp 16 02/09/24 07:18 BP 176/100 H 02/09/24 06:49 Pulse Ox 94 02/09/24 07:18 O2 Del Method Room Air 02/09/24 07:18 Constitutional no acute distress ENMT Mouth: no TMJ abnormality Thyromental Distance: > or= 3.5 Finger Breadths Mallampati Class: II Neck normal visual inspection and trachea midline; neck extension not limited Respiratory normal respiratory effort (rales auscultated bilaterally, productive cough) Auscultation: lungs clear to auscultation bilaterally Cardiovascular Rate/Rhythm: regular rate and regular rhythm Heart Sounds: no murmur Musculoskeletal Spine: normal cervical ROM Extremities: full ROM of extremities Neurologic moves all extremities Psychiatric Orientation: alert and oriented x 3 Testing Laboratory Results 02/08/24 08:07 02/08/24 08:07 Urine Color Yellow 02/06/24 Unknown Urine Appearance Clear (Clear) 02/06/24 Unknown Urine pH 6.0 (4.5-7.5) 02/06/24 Unknown Ur Specific [place] > 1.045 (1.000-1.030) H 02/06/24 Unknown Urine Protein 2+ (Negative) H 02/06/24 Unknown Urine Glucose (UA) Negative (Negative) 02/06/24 Unknown Urine Ketones Negative (Negative) 02/06/24 Unknown Urine Nitrite Negative (Negative) 02/06/24 Unknown Ur Leukocyte Esterase Negative (Negative) 02/06/24 Unknown Urine WBC (Auto) 5-10 /hpf (0-5) H 02/06/24 Unknown Urine RBC (Auto) 0-4 /hpf (0-4) 02/06/24 Unknown U Hyaline Cast (Auto) 1-5 /lpf (0-5) 02/06/24 Unknown U Epithel Cells (Auto) 10-20 /lpf (0-5) H 02/06/24 Unknown Urine Bacteria (Auto) 1+ (Negative) H 02/06/24 Unknown 02/06/24 Unknown Urine Culture - Final Urine,Straight Cath Sheila albicans/dubliniensis 02/06/24 05:38 Aerobic Blood Culture - Preliminary Blood No growth in Aerobic bottle after 48 hours. Anaerobic Blood Culture - Preliminary No growth in Anaerobic bottle after 48 hours. 02/06/24 05:38 Aerobic Blood Culture - Preliminary Blood No growth in Aerobic bottle after 48 hours. Anaerobic Blood Culture - Preliminary No growth in Anaerobic bottle after 48 hours. 02/03/24 10:40 Aerobic Blood Culture - Final Blood Group B Beta Strep Sheila albicans/dubliniensis Enterococcus faecalis Anaerobic Blood Culture - Final Group B Beta Strep Sheila albicans/dubliniensis 02/04/24 17:56 Aerobic Blood Culture - Final Blood Sheila albicans/dubliniensis Anaerobic Blood Culture - Final 02/04/24 17:51 Aerobic Blood Culture - Preliminary Blood No growth in Aerobic bottle after 48 hours. Anaerobic Blood Culture - Final 02/03/24 11:17 Aerobic Blood Culture - Final Blood Sheila albicans Anaerobic Blood Culture - Final 02/05/24 13:57 Fungal Smear - Final Blood 02/03/24 13:45 Gram Stain - Final Ankle,Right Wound Culture - Final Enterococcus faecalis 02/03/24 Unknown Urine Culture - Final Urine,Clean Catch Three types of organisms present, all moderate counts. Repeat collection recommended. No further identifications or sensitivities to follow. Electrocardiogram Date: 02/04/24 Normal sinus rhythm Low voltage QRS Prolonged QT Abnormal ECG When compared with ECG of 03-FEB-2024 13:57, Criteria for Septal infarct are no longer Present Confirmed by Navneet Sen ([id number]) on 02/04/2024 8:46:13 AM Echocardiogram Date: 02/07/24 EF: 55-60 Valvular Disease: + (mild)
[2024-02-09] MEDS: ALBUT/IPRATROP 3MG/0.5MG NEB 3 ML VIAL ONE (07:22)
--- NOTE | 2024-02-09 07:23 | History & Physical Bridge Note ---
Date of Service February 09, 2024 History & Physical Bridge Note I have examined the patient, reviewed the History & Physical and in the interval since the performance of the History & Physical I have noted the following changes of clinical significance: no changes noted
[2024-02-09 07:27] LABS: Basophils # (auto) 0.01 K/uL (0.00-0.20); Basophils % (auto) 0.1 %; Eosinophils # (auto) 0.03 K/uL (0.00-0.50); Eosinophils % (auto) 0.4 %; Hematocrit (blood only) 26.9 % (37.0-47.0); Hemoglobin 8.6 g/dl (12.0-16.0); Immature Granulocytes # (auto) 0.15 K/uL (0.01-0.20); Lymphocytes # (auto) 0.53 K/uL (1.20-3.40); Lymphocytes % (auto) 6.9 %; Mean Corpuscular Hemoglobin 26.4 pg (25.0-34.0); Mean Corpuscular Volume 82.5 fL (80.0-100.0); Mean Platelet Volume 9.9 fL (9.4-12.4); Monocytes # (auto) 0.65 K/uL (0.11-0.59); Monocytes % (auto) 8.5 %; Neutrophils # (auto) 6.28 K/uL (1.40-6.50); Neutrophils % (auto) 82.1 %; Nucleated RBC # (auto) 0.02 K/uL (0.00-0.12); Nucleated RBC % (auto) 0.3 %; Platelet Count 267 K/uL (130-400); RDW Coefficient of Variation 17.5 % (11.5-14.5); RDW Standard Deviation 51.8 fL (36.4-46.3); Red Blood Count 3.26 M/uL (4.20-5.40); White Blood Count 7.65 K/ul (4.8-10.8)
[2024-02-09 07:44] LABS: Albumin Globulin Ratio 1.1 (0.9-2); Albumin Level 2.9 gm/dl (3.4-5.0); Bilirubin,Total 0.3 mg/dl (0.2-1.0); Calcium 8.1 mg/dl (8.6-10.3); Est GFR (Non-African American) 77.7 ml/min; Globulin 2.7 gm/dl (2.5-4.0); Magnesium 1.9 mg/dl (1.7-2.4); Phosphorus 3.1 mg/dl (2.5-4.9); Potassium 3.3 mmol/L (3.5-5.1); Total Protein 5.6 gm/dl (6.0-8.3)
[2024-02-09 07:55] LABS: ANTI-Xa, UFH(UnfractionatedHep < 0.10 IU/ml (0.3-0.7)
[2024-02-09] MEDS: BUPIVACAINE/EPINEPHRINE 0.5% MPF 1:200,000 30 ML VIAL ONE (07:57)
--- NOTE | 2024-02-09 07:57 | Post Operative Brief Note ---
PG Immediate Post Op with CF Date of Surgery February 09, 2024 Pre & Post Diagnosis Operation Date: 02/09/24 07:30 Pre-Op Diagnosis: central line-associated bloodstream infection Post-Op Diagnosis: central line-associated bloodstream infection I identified the patient and participated in the time-out.: Yes Procedure Operation Date: 02/09/24 07:30 Actual Procedures p Mediport Removal(Right) - Tristin Lazo DO Surgeon Tristin Lazo DO Patient Carrier None Estimated Blood Loss 5 Findings See Below Intact catheter mediport complex Specimens Specimen Description: 1. Removed mediport tip for culture Anesthesia Type MAC Complications none Disposition Disposition: Recovery Room
--- NOTE | 2024-02-09 07:59 | Operative Report ---
PG Post Operative Report Pre & Post Diagnosis Operation Date: 02/09/24 07:30 Pre-Op Diagnosis: central line-associated bloodstream infection Post-Op Diagnosis: central line-associated bloodstream infection I identified the patient and participated in the time-out.: Yes Procedure Operation Date: 02/09/24 07:30 Actual Procedures p Mediport Removal(Right) - Tristin Lazo DO Surgeon Tristin Lazo, Chef None Estimated Blood Loss 5 Findings See Below Intact catheter mediport complex Specimens Catheter tip for culture Drains None Anesthesia Type MAC Complications none Disposition Disposition: Recovery Room Indications 73 yo female with need for mediport removal Description of Procedure The patient was brought to the OR and placed in the supine position. At this time she underwent MAC anesthesia without problem. Her right chest was prepped and draped in the usual sterile fashion. She was given appropriate pre- operative antibiotics. Timeout was called, procedure was verified as Mediport removal. Surgical, anesthesia and nursing teams agreed and the procedure was begun. Patient was then placed in Trendelenburg position. After injection of 0.25% Marcaine with epinephrine, a transverse incision directly through her old incision was made using a #15 blade scalpel. This was carried down directly to the port using electrocautery. At this time the catheter was delivered out of the incision. The sutures on the mediport itself were then cut and the entire mediport/catheter complex removed and passed off as specimen. Pressure was held in the right neck for 5 minutes. At this time the incision was irrigated until clear. Hemostasis was achieved using electrocautery. Hemostasis was complete. At this time the capsule was closed using 3-0 Vicryl. Deep dermal layer of skin was closed using 3-0 Vicryl and the skin was closed using 4-0 Monocryl. Sterile dressing was applied. All needle and sponge counts were correct x 2. The patient was then awakened from anesthesia and transported to PACU in stable condition. I attest to the content of the Intraoperative Record and any orders documented therein. Any exceptions are noted below.
--- NOTE | 2024-02-09 08:23 | Anesthesiology Progress Note ---
Date of Service February 09, 2024 Anesthesia Post Procedure Vital Signs Vital Signs: Temp Pulse Pulse Resp BP BP BP 02/09/24 08:15 76 18 140/87 02/09/24 08:06 36.8 C 74 18 144/84 H 02/09/24 07:18 72 16 02/09/24 06:49 36.7 C 75 20 176/100 H 02/09/24 03:08 72 148/82 H 02/09/24 03:07 72 148/82 H 02/09/24 02:52 64 180/103 H 02/09/24 02:25 36.3 C L 64 18 180/103 H 02/09/24 00:15 02/08/24 23:24 36.3 C L 72 16 153/87 H 02/08/24 19:41 36.3 C L 70 18 132/83 02/08/24 15:20 73 02/08/24 15:19 36.6 C 71 18 133/77 02/08/24 11:05 36.6 C 85 18 147/77 H 02/08/24 09:40 69 116/72 02/08/24 09:00 02/08/24 08:34 36.6 C 95 H 18 177/116 H Pulse Ox O2 Del Method O2 Flow Rate 02/09/24 08:15 98 Oxymask 3 02/09/24 08:06 98 Oxymask 5 02/09/24 07:18 94 Room Air 02/09/24 06:49 96 Room Air 02/09/24 03:08 02/09/24 03:07 02/09/24 02:52 02/09/24 02:25 95 Room Air 02/09/24 00:15 Room Air 02/08/24 23:24 95 Room Air 02/08/24 19:41 94 Room Air 02/08/24 15:20 02/08/24 15:19 94 Room Air 02/08/24 11:05 94 Room Air 02/08/24 09:40 02/08/24 09:00 Room Air 02/08/24 08:34 94 Room Air Transfer of Care Handoff Completed per policy Notes Mental Status: alert / awake / arousable Patient Amnestic to Procedure: Yes Nausea / Vomiting: adequately controlled Pain: adequately controlled Airway Patency, RR, SpO2: stable & adequate BP & HR: stable & adequate Hydration State: stable & adequate Anesthetic Complications: no major complications apparent and Pt Satisfied with anesthetic care
--- NOTE | 2024-02-09 11:18 | Cardiology Progress Note ---
Date of Service February 09, 2024 Assessment & Plan (1) Myocardial strain: (2) Tachycardia: (3) Sepsis: Plan Fungemia, group B strep bacteremia Paroxysmal supraventricular tachycardia Paroxysmal atrial fibrillation History of DVT - Continue antibiotics ad per ID recommendations. -Midodrine on hold as blood pressure has rebounded and has been stable without additional low blood pressure readings for the last few days -Continue metoprolol tartrate to 25 mg 3 times daily -Heparin bridge held early this am, 6 hours prior to procedure -I have more concerns about bleeding complications than thrombotic complications in this frail patient. Favor resuming Eliquis on post op day one rather than resuming heparin bridge. -Case reviewed with Dr Lazo of surgery who is in agreement with resuming Eliquis tomorrow if incision stable without post operative bleeding. J Carlos Vargas DO Admission and Anticipated Discharge Date Admission Date: February 03, 2024 Subjective Patient seen in cardiology follow up. Tolerated surgical port removal this am. Mentating well without complaints. Incision without erythema. Telemetry reveals SR in the 70s with brief runs of SVT at 10:11 am and 10:53 am. Physical Exam Constitutional: + ill appearing and + frail appearing; n o acute distress Respiratory: normal respiratory effort, lungs clear to auscultation Cardiovascular: Rate/Rhythm: regular rhythm and + tachycardic Heart Sounds: + murmur (2/6 systolic murmur ) Extremities: + edema (left lower leg and left pedal edema ) Gastrointestinal (Abdomen): normal bowel sounds, soft, nontender, no hepatosplenomegaly Psychiatric: A+Ox3, euthymic affect Results & Data Vital Signs (Past 12 Hours) Vital Signs Temp Pulse Pulse Resp BP BP Pulse Ox 02/09/24 10:00 87 18 130/81 96 02/09/24 09:27 74 170/86 H 96 02/09/24 09:11 36.7 C 74 18 163/87 H 97 02/09/24 08:35 36.9 C 77 14 157/84 H 95 02/09/24 08:25 36.9 C 73 19 147/89 H 97 02/09/24 08:15 76 18 140/87 98 02/09/24 08:06 36.8 C 74 18 144/84 H 98 02/09/24 08:00 77 02/09/24 07:18 72 16 94 02/09/24 06:49 36.7 C 75 20 176/100 H 96 02/09/24 03:08 72 148/82 H 02/09/24 03:07 72 148/82 H 02/09/24 02:52 64 180/103 H 02/09/24 02:25 36.3 C L 64 18 180/103 H 95 02/09/24 00:15 02/08/24 23:24 36.3 C L 72 16 153/87 H 95 O2 Del Method O2 Flow Rate 02/09/24 10:00 Room Air 02/09/24 09:27 Room Air 02/09/24 09:11 Room Air 02/09/24 08:35 Room Air 02/09/24 08:25 Room Air 02/09/24 08:15 Oxymask 3 02/09/24 08:06 Oxymask 5 02/09/24 08:00 02/09/24 07:18 Room Air 02/09/24 06:49 Room Air 02/09/24 03:08 02/09/24 03:07 02/09/24 02:52 02/09/24 02:25 Room Air 02/09/24 00:15 Room Air 02/08/24 23:24 Room Air (3) Sepsis Sepsis acute organ dysfunction status: unspecified Sepsis type: sepsis due to unspecified organism Qualified Code(s): A41.9 - Sepsis, unspecified organism
[2024-02-10 06:57] LABS: Hematocrit (blood only) 25.1 % (37.0-47.0); Hemoglobin 8.2 g/dl (12.0-16.0); Mean Corpuscular Hemoglobin 26.5 pg (25.0-34.0); Mean Corpuscular Hgb Conc 32.7 g/dL (32.0-36.0); Mean Platelet Volume 9.9 fL (9.4-12.4); Nucleated RBC # (auto) 0.03 K/uL (0.00-0.12); Nucleated RBC % (auto) 0.3 %; Platelet Count 301 K/uL (130-400); RDW Coefficient of Variation 17.6 % (11.5-14.5); RDW Standard Deviation 51.3 fL (36.4-46.3); White Blood Count 9.15 K/ul (4.8-10.8)
[2024-02-10 07:26] LABS: BUN Creatinine Ratio 33.3 (10-20); Calcium 8.2 mg/dl (8.6-10.3); Creatinine Clr Calc Pharmacy 75.5 ml/min; Est GFR (Non-African American) 88.9 ml/min; Magnesium 1.9 mg/dl (1.7-2.4); Phosphorus 3.2 mg/dl (2.5-4.9); Potassium 3.5 mmol/L (3.5-5.1)
--- NOTE | 2024-02-10 08:19 | Hospitalist Progress Note ---
Date of Service February 10, 2024 Assessment & Plan (1) Sepsis: (2) UTI (urinary tract infection): (3) Cellulitis of left lower leg: (4) Elevated troponin: (5) Diarrhea: (6) Hypomagnesemia: (7) Chronic refractory osteomyelitis of ankle: (8) CAD (coronary artery disease): (9) History of pulmonary embolism: (10) S/P IVC filter: (11) Paroxysmal atrial fibrillation: (12) Multiple sclerosis: (13) Neurogenic bladder: (14) Chronic anemia: (15) Rosacea: (16) Breast cancer: Plan Patient is 73-year-old female with PMH HTN, CAD, history NSTEMI, paroxysmal atrial fibrillation, history of PE, DVT, chronic anticoagulation on Eliquis, MS, neurogenic bladder requiring self catheterization, chronic anemia, rosacea, chronic osteomyelitis right lower extremity, history of breast cancer who presented to ER with complaint of tactile fevers, generalized weakness, diarrhea x 1 day. Sepsis Complicated UTI LLE Cellulitis Sepsis. Possible source UTI, possible LLE cellulitis, chronic R ankle wound In ER T: 36.2 C, P: 102, RR: 16, BP 117/76, 96% on room air. WBC: 19, lactate: 1.8, Procalcitonin: 9 CXR: Cardiomegaly with pulmonary vascular prominence Arterial lower extremity Doppler: There is no sonographic evidence of high-grade stenosis or focal vessel cut off seen throughout the arteries of the right or left lower extremity. In ER given 1 L NSS, cefepime, daptomycin. Reevaluation. Patient awake, alert and oriented x 3. BP 115/75, P: 112, R: 20, 94% on room air. Brisk capillary refill. Lungs clear to auscultation, sinus tachycardia. Blood culturex1 from 02/02 growing Group B Beta strep, probable Enterococcus Blood Cx x2 from 02/02 also growing yeast/uvaldo Repeat blood Cx on 02/03 pending- one growing yeast R ankle wound growing E. faecalis Biofire showing E faecalis + and strep + Urine culture with no significant growth, repeat ordered on 02/04, no sig growth Cefepime, vancomycin switched to Cefepime with Daptomycin Caspofungin added on 02/04 Bolus with gentle IVF Stool studies, C-diff if recurrent diarrhea Wound nurse consult ID consulted, appreciate recs -recommended transitioning current regimen to Ampicillin and po fluconazole -remove port (port now removed - 02/08) -baclofen pump can remain Bacteremia Fungemia Blood culture x1 from 02/02 growing Group B Beta strep Blood Cx x2 from 02/02 also growing yeast/uvaldo Repeat blood Cx ordered on 02/03 and pending- growing yeast R ankle wound growing E. faecalis Urine culture with no significant growth, repeat ordered on 02/04 NGTD Pt with indwelling R IJ port, previously placed for osteomyelitis treatment for RIGHT ankle in Sep 2023 , will likely need removal -General surgery consulted, appreciate recs - s/p removal of port on 02/08 Pt also with indwelling baclofen pump -Pain management previously consulted, appreciate recs for potential removal -pain pump can remain per ID Cardiology consulted, appreciate recs -BALA on 02/06, no noted vegetations Previously on IV Cefepime, Daptomycin and Caspofungin ID consulted-appreciate recs transition to IV Ampicillin and po Fluconazole Septic Shock-Resolved Pt with persistently low blood pressure in setting of above Receiving cautious fluid boluses On stress IV hydrocortisone 50mg q6h - taper off Midodrine 5mg TID started, held on 02/05 due to high blood pressures - now stopped Continue to monitor Elevated troponin hs-Troponin:1140-->1375--->1833 CK: 369 Initial EKG sinus rhythm, rate 99, Q waves septal leads repeat EKG sinus tachycardia, rate 116, Q waves septal leads. Q waves septal leads seen in prior EKGs per chart review Patient without chest pain, shortness of breath, dizziness, palpitations, dizziness Likely Type II NSTEMI Echo with EF> 70%, Grade I diastolic dysfunction, mild aortic stenosis Continue metoprolol, atorvastatin Continue Eliquis -> iv heparin as port to be removed - plan to go back on eliquis Cardiology consulted appreciate recs -no procedure -cardiac MRI -continue metoprolol - metoprolol succinate 50 bid, and added losartan 25 Diarrhea 2 episodes diarrhea day before admission Denies abdominal pain. No further diarrhea If recurrent diarrhea plan to obtain stool culture, C. difficile CT abdomen pelvis with no acute pathology Electrolyte Abnormalities: -Hypomagnesemia: Magnesium 1.5 on admission. Replete and monitor Chronic refractory osteomyelitis of ankle History of chronic osteomyelitis right ankle Right ankle x-ray: No evidence osteomyelitis Chronic right ankle ulcer R ankle wound growing E faecalis Wound nurse consult Transitioned to Ampicillin Elevated CK Rhabdo Ck elevated at 239 IV hydration as above CAD (coronary artery disease) History nonocclusive CAD. History NSTEMI Workup as above Continue metoprolol tartrate with holding parameters, statin History of pulmonary embolism S/P IVC filter History of PE. IVC filter in place. History DVT left lower extremity in 09/2023. Eliquis on hold for upcoming procedures, held on 02/05 (last dose in AM), transitioned to IV heparin - plan to go back to eliquis now Patient denies any missed doses Paroxysmal atrial fibrillation Anticoagulated on Eliquis Current sinus tachycardia Eliquis on hold for upcoming procedures, held on 02/05 (last dose in AM), transitioned to IV heparin, as above Continue metoprolol tartrate, IV heparin as above Metoprolol dose increased overnight for SVT Multiple sclerosis Neurogenic bladder Self catheterization at home Has baclofen pump On Aubagio, prednisone, tizanidine Zuñiga catheter Pain management consult in setting of need for MRI, consider po baclofen dose around imaging Chronic anemia Hgb: 9.6. Baseline in 9' Monitor H&H Rosacea On chronic doxycycline. Will hold doxycycline for now as on above antibiotics Breast cancer History left breast cancer s/p surgery, radiation Diet: HH DVT Prophylaxis: On Eliquis Full Code as per discussion with pt Dispo: PT/OT ordered Admission and Anticipated Discharge Date Admission Date: February 03, 2024 Subjective Pt seen in follow up of bacteremia/ fungemia Currently laying in bed in [facility] Denies fever, chills, chest pain, shortness of breath. also denies abd. pain, n/v S/p port removal by gen surgery Feeling well, eating breakfast Per surgery - ok to restart eliquis Review of Systems Review of Systems: All systems reviewed & are unremarkable except as noted in Subjective Physical Exam Physical Exam: General: WD/WN F in NAD HEENT: NC/AT CV: RRR, Normal s1, s2. No murmurs appreciated Resp: Breath sounds clear bilaterally, no increased effort of breathing. Abdomen: Soft, nontender, nondistended. Extremities: + mild edema in lower extremities bilaterally, eliza. R pedal. Neuro: awake, alert, oriented, answers appropriately, no facial asymmetry, speech fluent, moves extremities Skin: LLE with erythema and edema to the leg and foot- improved Results & Data Results & Data Vital Signs (Past 12 Hours) Vital Signs Temp Pulse Pulse Resp BP Pulse Ox O2 Del Method 02/10/24 02:33 36.3 C L 68 16 164/89 H 96 Room Air 02/10/24 00:30 150/84 H 02/09/24 23:40 61 02/09/24 21:58 36.6 C 61 18 169/96 H 96 Room Air 02/09/24 21:00 Room Air Laboratory Results 02/10/24 02/09/24 Range/Units 06:23 20:32 WBC 9.15 (4.8-10.8) K/ul RBC 3.10 L (4.20-5.40) M/uL Hgb 8.2 L (12.0-16.0) g/dl Hct 25.1 L (37.0-47.0) % MCV 81.0 (80.0-100.0) fL MCH 26.5 (25.0-34.0) pg MCHC 32.7 (32.0-36.0) g/dL RDW Std Deviation 51.3 H (36.4-46.3) fL RDW Coeff of Tiffanie 17.6 H (11.5-14.5) % Plt Count 301 (130-400) K/uL MPV 9.9 (9.4-12.4) fL Absolute Nucleated RBC 0.03 (0.00-0.12) K/uL Nucleated RBC % (auto) 0.3 % Sodium 139 (136-145) mmol/L Potassium 3.5 (3.5-5.1) mmol/L Chloride 105 (98-107) mmol/L Carbon Dioxide 28 (21-32) mmol/L Anion Gap 6 (3-11) BUN 22 (6-23) mg/dl Creatinine 0.66 (0.6-1.2) mg/dl Est Cr Clr Drug Dosing 75.5 ml/min Est GFR ( Amer) 103.0 ml/min Est GFR (Non-Af Amer) 88.9 ml/min BUN/Creatinine Ratio 33.3 H (10-20) Glucose 107 H (70-99(Fasting)) mg/dl POC Glucose 156 H (70-99) mg/dl Calcium 8.2 L (8.6-10.3) mg/dl Phosphorus 3.2 (2.5-4.9) mg/dl Magnesium 1.9 (1.7-2.4) mg/dl Hepatitis C Ab (EIA) Pending Medications Administered Current Inpatient Medications Acetaminophen (Acetaminophen 325 Mg Tab) 650 mg PO Q4H PRN PRN Reason: Pain or Fever Stop: 03/04/24 15:25 Last Admin: 02/03/24 18:15 Dose: 650 mg Atorvastatin Calcium (Atorvastatin 20 Mg Tab) 20 mg PO [facility] Stop: 03/05/24 08:59 Escitalopram Oxalate (Escitalopram Oxalate 20 Mg Tab) 20 mg PO [facility] Stop: 03/05/24 08:59 Last Admin: 02/10/24 08:03 Dose: 20 mg Fluconazole (Fluconazole 100 Mg Tab) 400 mg PO DAILY [facility] Stop: 03/09/24 08:59 Last Admin: 02/10/24 08:01 Dose: 400 mg Ampicillin Sodium 2,000 mg/ (Sodium Chloride) 100 mls @ 200 mls/hr IV Q4H [facility] Stop: 02/21/24 12:59 Last Infusion: 02/10/24 05:15 Dose: Infused Hydrocortisone Sodium (Succinate 25 mg/ Syringe) 0.5 mls @ 4 mls/min IV Q8H [facility] Stop: 03/11/24 08:15 Melatonin (Melatonin 3 Mg Tab) 3 mg PO HS [facility] Stop: 03/04/24 20:59 Last Admin: 02/09/24 21:34 Dose: 3 mg Metoprolol Tartrate (Metoprolol Tartrate 25 Mg Tab) 25 mg PO TID [facility] Stop: 03/09/24 13:59 Last Admin: 02/10/24 08:00 Dose: 25 mg Ondansetron HCl (Ondansetron Inj 2 Mg/Ml 2 Ml Vial) 4 mg IV Q6H PRN PRN Reason: Nausea Stop: 03/04/24 15:25 Oxybutynin Chloride (Oxybutynin Chloride Xl 5 Mg Tabcr) 15 mg PO [facility] Stop: 03/05/24 08:59 Last Admin: 02/10/24 08:02 Dose: 15 mg Pantoprazole Sodium (Pantoprazole 40 Mg Tab) 40 mg PO [facility]; Protocol Stop: 03/05/24 08:59 Last Admin: 02/10/24 08:02 Dose: 40 mg Prednisone (Prednisone 10 Mg Tablet) 10 mg PO QAM [facility] Stop: 03/05/24 08:59 Teriflunomide (Teriflunomide 14 Mg Tab) 14 mg PO QPM [facility] Stop: 03/08/24 20:59 Last Admin: 02/09/24 21:32 Dose: Not Given Tizanidine HCl (Tizanidine Hcl 4 Mg Tablet) 4 mg PO QID [facility] Stop: 03/04/24 16:59 Last Admin: 02/10/24 08:04 Dose: 4 mg Vitamin D (Cholecalciferol 25 Mcg (1000 Units) Tab) 25 mcg PO QAM [facility] Stop: 03/05/24 08:59 Last Admin: 02/10/24 08:02 Dose: 25 mcg (1) Sepsis Sepsis acute organ dysfunction status: unspecified Sepsis type: sepsis due to unspecified organism Qualified Code(s): A41.9 - Sepsis, unspecified organism (2) UTI (urinary tract infection) Hematuria presence: without hematuria Urinary tract infection type: acute cystitis Qualified Code(s): N30.00 - Acute cystitis without hematuria
--- NOTE | 2024-02-10 08:37 | Surgery Progress Note ---
Date of Service February 10, 2024 Assessment & Plan (1) History of removal of Port-a-Cath: Plan: Incision looks good Ok to resume Eliquis today Surgery will sign off at this time, please call with any questions or concerns Admission and Anticipated Discharge Date Admission Date: February 03, 2024 Subjective Pt seen and examined. Pain controlled. No problems with incision. Physical Exam Chest (Breasts): Additional Comments: Incision healing well without erythema or drainage Results & Data Vital Signs (Past 12 Hours) Vital Signs Temp Pulse Pulse Resp BP Pulse Ox O2 Del Method 02/10/24 07:48 36.5 C 72 20 181/96 H 94 Room Air 02/10/24 02:33 36.3 C L 68 16 164/89 H 96 Room Air 02/10/24 00:30 150/84 H 02/09/24 23:40 61 02/09/24 21:58 36.6 C 61 18 169/96 H 96 Room Air 02/09/24 21:00 Room Air PG Care Time/CCT Total # of Minutes Spent Total Time Spent with Patient: Total time spent is greater than 50% in coordination of care (as documented) at patient's floor/unit and/or counseling patient: Coding Level of Care Code 33248 Post Operative Follow-Up Diagnoses History of removal of Port-a-Cath Z98.890
[2024-02-10] MEDS: APIXABAN 5 MG TABLET PO SCH (11:24)
--- NOTE | 2024-02-10 12:13 | Cardiology Progress Note ---
Date of Service February 10, 2024 Assessment & Plan (1) Sepsis: (2) Myocardial strain: (3) Tachycardia: Plan Fungemia, group B strep bacteremia Paroxysmal supraventricular tachycardia Paroxysmal atrial fibrillation History of DVT BALA performed 02/07/24=No vegetation, mild to moderate MR, Mild Status post surgical removal of right-sided Mediport on 02/09/2024-catheter tip culture with no growth to date - Continue antibiotics ad per ID recommendations. -Discontinue midodrine as BP has improved and is now elevated. -Change metoprolol tartrate to 25 mg 3 times daily to metoprolol succinate 50 mg BID -Add losartan 25 mg daily -Magdalena re-started this am, 02/10/24. Dr Carpenter assuming rounds on 02/11/24, call with question or concerns J Carlos Vargas DO Admission and Anticipated Discharge Date Admission Date: February 03, 2024 Subjective Patient seen in follow-up. Denies any acute complaints. Does note recurrent subjective palpitations that were short-lived which likely correlates to a very brief episode of atrial fibrillation earlier today, currently sinus rhythm in the 60s. Physical Exam Constitutional: + ill appearing and + frail appearing; n o acute distress Respiratory: normal respiratory effort, lungs clear to auscultation Cardiovascular: Rate/Rhythm: regular rhythm and + tachycardic Heart Sounds: + murmur (2/6 systolic murmur ) Extremities: + edema (left lower leg and left pedal edema improving) Chest (Breasts): Additional Comments: Right infraclavicular operative site where port was removed is clean dry and intact, no erythema, no drainage, no hematoma Gastrointestinal (Abdomen): normal bowel sounds, soft, nontender, no hepatosplenomegaly Psychiatric: A+Ox3, euthymic affect Results & Data Vital Signs (Past 12 Hours) Vital Signs Temp Pulse Pulse Resp BP Pulse Ox O2 Del Method 02/10/24 10:40 65 02/10/24 10:35 36.4 C L 62 20 152/85 H 96 Room Air 02/10/24 07:48 36.5 C 72 20 181/96 H 94 Room Air 02/10/24 02:33 36.3 C L 68 16 164/89 H 96 Room Air 02/10/24 00:30 150/84 H (1) Sepsis Sepsis acute organ dysfunction status: unspecified Sepsis type: sepsis due to unspecified organism Qualified Code(s): A41.9 - Sepsis, unspecified organism
[2024-02-10] MEDS: LOSARTAN POTASSIUM 25 MG TAB PO SCH (13:07)
[2024-02-10] MEDS: HYDROCORTISONE SOD 25 MG in SYRINGE 0 ML IV SCH (14:17)
[2024-02-10] MEDS: NITROGLYCERIN 2% OINTMENT 30GM TUBE EXT SCH (16:59)
[2024-02-10] MEDS: hydrALAZINE HCL 25 MG TAB PO STA (17:00)
[2024-02-10] MEDS: METOPROLOL SUCC 50MG EXT REL TAB PO SCH (20:25)
[2024-02-11] MEDS: SENNA 8.6 MG TAB PO SCH (08:56)
[2024-02-11] MEDS: POLYETHYLENE (MIRALAX) 17 GM PACK PO SCH (08:58)
[2024-02-11] MEDS: HYDROCORTISONE SOD 25 MG in SYRINGE 0 ML IV SCH (09:01)
[2024-02-11 09:13] LABS: Hematocrit (blood only) 27.7 % (37.0-47.0); Hemoglobin 8.8 g/dl (12.0-16.0); Mean Corpuscular Hemoglobin 26.3 pg (25.0-34.0); Mean Corpuscular Hgb Conc 31.8 g/dL (32.0-36.0); Mean Corpuscular Volume 82.7 fL (80.0-100.0); Mean Platelet Volume 9.8 fL (9.4-12.4); Nucleated RBC # (auto) 0.03 K/uL (0.00-0.12); Nucleated RBC % (auto) 0.5 %; Platelet Count 347 K/uL (130-400); RDW Coefficient of Variation 18.7 % (11.5-14.5); RDW Standard Deviation 52.5 fL (36.4-46.3); Red Blood Count 3.35 M/uL (4.20-5.40); White Blood Count 6.43 K/ul (4.8-10.8)
[2024-02-11 09:38] LABS: Calcium 8.3 mg/dl (8.6-10.3); Creatinine Clr Calc Pharmacy 70.1 ml/min; Est GFR (African American) 99.3 ml/min; Est GFR (Non-African American) 85.7 ml/min; Magnesium 1.8 mg/dl (1.7-2.4); Phosphorus 2.6 mg/dl (2.5-4.9); Potassium 3.5 mmol/L (3.5-5.1)
--- NOTE | 2024-02-11 11:44 | Cardiology Progress Note ---
Date of Service February 11, 2024 Assessment & Plan (1) Hypertension: (2) Sepsis: (3) Myocardial strain: (4) Tachycardia: Plan Fungemia, group B strep bacteremia Paroxysmal supraventricular tachycardia Paroxysmal atrial fibrillation History of DVT BALA performed 02/07/24=No vegetation, mild to moderate MR, Mild Status post surgical removal of right-sided Mediport on 02/09/2024-catheter tip culture with no growth to date Antibiotics ad per ID recommendations. Elevated blood pressure 02/10/2024, improved with titration of metoprolol succinate and addition of losartan. Midodrine discontinued. No other medication changes recommended at this time. Cardiology will sign off. Please call with any additional concerns/questions. Admission and Anticipated Discharge Date Admission Date: February 03, 2024 Subjective Patient seen and examined at the bedside. Elevated blood pressure noted last evening with associated chest discomfort. Patient treated with topical nitrates. Blood pressure improved this a.m. after administration of metoprolol and losartan. Losartan added 02/10/2024. Review of Systems Review of Systems: All systems reviewed & are unremarkable except as noted in Subjective Physical Exam Constitutional: well nourished; no acute distress Respiratory: no respiratory distress and no labored breathing Auscultation: no crackles, no rales, no rhonchi and no wheezes Cardiovascular: Rate/Rhythm: regular rate and regular rhythm Heart Sounds: normal S1, normal S2 and + murmur (1/6 systolic ejection murmur) Vessels: no JVD Extremities: + edema Gastrointestinal (Abdomen): Inspection/Auscultation: + abdomen abnormal to inspection and abdomen not distended Percussion/Palpation: abdomen soft; abdomen nontender, no guarding and abdomen not rigid Neurologic: CN's II-XI intact bilaterally and moves all extremities Results & Data Vital Signs (Past 12 Hours) Vital Signs Temp Pulse Pulse Resp BP Pulse Ox O2 Del Method 02/11/24 11:37 36.6 C 67 20 110/74 93 Room Air 02/11/24 08:00 Room Air 02/11/24 07:35 36.7 C 70 18 148/79 H 95 Room Air 02/11/24 07:29 71 02/11/24 03:25 36.7 C 68 17 121/75 96 Room Air 02/11/24 00:29 66 Laboratory Results CBC 02/11/24 Range/Units 08:19 WBC 6.43 (4.8-10.8) K/ul RBC 3.35 L (4.20-5.40) M/uL Hgb 8.8 L (12.0-16.0) g/dl Hct 27.7 L (37.0-47.0) % Plt Count 347 (130-400) K/uL Comprehensive Metabolic Panel 02/11/24 Range/Units 08:19 Sodium 139 (136-145) mmol/L Potassium 3.5 (3.5-5.1) mmol/L Chloride 105 (98-107) mmol/L Carbon Dioxide 27 (21-32) mmol/L BUN 22 (6-23) mg/dl Creatinine 0.71 (0.6-1.2) mg/dl Glucose 99 (70-99(Fasting)) mg/dl Calcium 8.3 L (8.6-10.3) mg/dl Intake and Output 02/10/24 02/11/24 02/11/24 22:59 06:59 14:59 Intake Total 200 / 920 200 / 920 100 / 100 Output Total 300 / 1225 675 / 1225 Balance -100 / -305 -475 / -305 99 / 99 Intake: IV 200 / 600 200 / 600 100 / 100 Ampicillin 2,000 mg In Sodium 200 / 600 200 / 600 100 / 100 Chlor 0.9% Mini-B 100 ml @ 200 mls/hr IV Q4H [facility] Rx#:[id number] Output: Urine Amount (Catheter) 300 / 1225 675 / 1225 Zuñiga/Indwelling 300 / 1225 675 / 1225 # Bowel Movements Other: Weight 70.9 kg 70.8 kg (1) Hypertension Hypertension type: primary hypertension Qualified Code(s): I10 - Essential (primary) hypertension (2) Sepsis Sepsis acute organ dysfunction status: unspecified Sepsis type: sepsis due to unspecified organism Qualified Code(s): A41.9 - Sepsis, unspecified organism
--- NOTE | 2024-02-11 13:23 | Electrocardiogram Report ---
Test Reason : Blood Pressure : / mmHG Vent. Rate : 064 BPM Atrial Rate : 064 BPM P-R Int : 148 ms QRS Dur : 074 ms QT Int : 442 ms P-R-T Axes : 011 022 050 degrees QTc Int : 455 ms Normal sinus rhythm Septal infarct , age undetermined Abnormal ECG When compared with ECG of 04-FEB-2024 04:51, Vent. rate has decreased BY 34 BPM Septal infarct is now Present Confirmed by Louis Jerome [id number] on 02/11/2024 1:23:35 PM Referred By: REFERRED SELF Confirmed By:Louis Jerome
--- NOTE | 2024-02-11 18:41 | Hospitalist Progress Note ---
Date of Service February 11, 2024 Assessment & Plan (1) Sepsis: (2) UTI (urinary tract infection): (3) Cellulitis of left lower leg: (4) Elevated troponin: (5) Diarrhea: (6) Hypomagnesemia: (7) Chronic refractory osteomyelitis of ankle: (8) CAD (coronary artery disease): (9) History of pulmonary embolism: (10) S/P IVC filter: (11) Paroxysmal atrial fibrillation: (12) Multiple sclerosis: (13) Neurogenic bladder: (14) Chronic anemia: (15) Rosacea: (16) Breast cancer: Plan Patient is 73-year-old female with PMH HTN, CAD, history NSTEMI, paroxysmal atrial fibrillation, history of PE, DVT, chronic anticoagulation on Eliquis, MS, neurogenic bladder requiring self catheterization, chronic anemia, rosacea, chronic osteomyelitis right lower extremity, history of breast cancer who presented to ER with complaint of tactile fevers, generalized weakness, diarrhea x 1 day. Sepsis Complicated UTI LLE Cellulitis Sepsis. Possible source UTI, possible LLE cellulitis, chronic R ankle wound In ER T: 36.2 C, P: 102, RR: 16, BP 117/76, 96% on room air. WBC: 19, lactate: 1.8, Procalcitonin: 9 CXR: Cardiomegaly with pulmonary vascular prominence Arterial lower extremity Doppler: There is no sonographic evidence of high-grade stenosis or focal vessel cut off seen throughout the arteries of the right or left lower extremity. In ER given 1 L NSS, cefepime, daptomycin. Reevaluation. Patient awake, alert and oriented x 3. BP 115/75, P: 112, R: 20, 94% on room air. Brisk capillary refill. Lungs clear to auscultation, sinus tachycardia. Blood culturex1 from 02/02 growing Group B Beta strep, probable Enterococcus Blood Cx (Fungal) x2 from 02/02 and 02/03 - also growing yeast/uvaldo Blood cultx (Fungal) from 02/04 - pending Blood cultx from 02/05 - negative for 5 days R ankle wound growing E. faecalis Biofire showing E faecalis + and strep + Urine culture (02/05) - posit. for uvaldo Catheter tip cultx (02/08) negative Cefepime, vancomycin switched to Cefepime with Daptomycin Caspofungin added on 02/04 Bolus with gentle IVF Stool studies, C-diff if recurrent diarrhea Wound nurse consult ID consulted, appreciate recs -recommended transitioning current regimen to Ampicillin and po fluconazole -remove port (port now removed - 02/08) -baclofen pump can remain Bacteremia Fungemia Blood culture from 02/02 growing Group B Beta strep, Enterococcus faecalis Blood Cx (Fungal) x2 from 02/02 and 02/03 - also growing yeast/uvaldo Blood cultx (Fungal) from 02/04 - pending Repeat blood Cx (02/03) + for uvaldo R ankle wound growing E. faecalis Urine culture (02/05) - posit. for uvaldo Catheter tip cultx (02/08) negative Pt with indwelling R IJ port, previously placed for osteomyelitis treatment for RIGHT ankle in Sep 2023 , will likely need removal -General surgery consulted, appreciate recs - s/p removal of port on 02/08 Pt also with indwelling baclofen pump -Pain management previously consulted, appreciate recs for potential removal -pain pump can remain per ID Cardiology consulted, appreciate recs -BALA on 02/06, no noted vegetations Previously on IV Cefepime, Daptomycin and Caspofungin ID consulted-appreciate recs transition to IV Ampicillin and po Fluconazole Septic Shock-Resolved Pt with persistently low blood pressure in setting of above Receiving cautious fluid boluses On stress IV hydrocortisone 50mg q6h - taper off Midodrine 5mg TID started, held on 02/05 due to high blood pressures - now stopped Continue to monitor Elevated troponin hs-Troponin:1140-->1375--->1833 CK: 369 Initial EKG sinus rhythm, rate 99, Q waves septal leads repeat EKG sinus tachycardia, rate 116, Q waves septal leads. Q waves septal leads seen in prior EKGs per chart review Patient without chest pain, shortness of breath, dizziness, palpitations, dizziness Likely Type II NSTEMI Echo with EF> 70%, Grade I diastolic dysfunction, mild aortic stenosis Continue metoprolol, atorvastatin Continue Eliquis -> iv heparin as port to be removed - plan to go back on eliquis Cardiology consulted appreciate recs -no procedure -cardiac MRI -continue metoprolol - metoprolol succinate 50 bid, and added losartan 25 Diarrhea 2 episodes diarrhea day before admission Denies abdominal pain. No further diarrhea If recurrent diarrhea plan to obtain stool culture, C. difficile CT abdomen pelvis with no acute pathology Electrolyte Abnormalities: -Hypomagnesemia: Magnesium 1.5 on admission. Replete and monitor Chronic refractory osteomyelitis of ankle History of chronic osteomyelitis right ankle Right ankle x-ray: No evidence osteomyelitis Chronic right ankle ulcer R ankle wound growing E faecalis Wound nurse consult Transitioned to Ampicillin Elevated CK Rhabdo Ck elevated at 239 IV hydration as above CAD (coronary artery disease) History nonocclusive CAD. History NSTEMI Workup as above Continue metoprolol tartrate with holding parameters, statin History of pulmonary embolism S/P IVC filter History of PE. IVC filter in place. History DVT left lower extremity in 09/2023. Eliquis on hold for upcoming procedures, held on 02/05 (last dose in AM), transitioned to IV heparin - switched back to Eliquis on 02/09 Patient denies any missed doses Paroxysmal atrial fibrillation Anticoagulated on Eliquis Current sinus tachycardia Eliquis on hold for upcoming procedures, held on 02/05 (last dose in AM), transitioned to IV heparin, now back on Eliquis as of 02/09 Continue metoprolol tartrate, IV heparin as above Metoprolol dose increased overnight for SVT, as above Multiple sclerosis Neurogenic bladder Self catheterization at home Has baclofen pump On Aubagio, prednisone, tizanidine Zuñiga catheter Pain management consult in setting of need for MRI, consider po baclofen dose around imaging Chronic anemia Hgb: 9.6. Baseline in 9' Monitor H&H Rosacea On chronic doxycycline. Will hold doxycycline for now as on above antibiotics Breast cancer History left breast cancer s/p surgery, radiation Diet: HH DVT Prophylaxis: On Eliquis Full Code as per discussion with pt Dispo: PT/OT ordered Admission and Anticipated Discharge Date Admission Date: February 03, 2024 Subjective Pt seen in follow up of bacteremia/ fungemia Currently laying in bed in [employer] Denies fever, chills, chest pain, shortness of breath. also denies abd. pain, n/v S/p port removal by gen surgery, marissa restarted on 02/09 Per cardiology on metoprolol succinate 50 bid + losartan 25 daily Review of Systems Review of Systems: All systems reviewed & are unremarkable except as noted in Subjective Physical Exam Physical Exam: General: WD/WN F in NAD HEENT: NC/AT CV: RRR, Normal s1, s2. No murmurs appreciated Resp: Breath sounds clear bilaterally, no increased effort of breathing. Abdomen: Soft, nontender, nondistended. Extremities: + mild edema in lower extremities bilaterally, eliza. L pedal. Neuro: awake, alert, oriented, answers appropriately, no facial asymmetry, speech fluent, moves extremities Skin: LLE with erythema and edema to the leg and foot- improved Results & Data Results & Data Vital Signs (Past 12 Hours) Vital Signs Temp Pulse Pulse Resp BP Pulse Ox O2 Del Method 02/11/24 15:22 36.5 C 70 18 111/69 94 Room Air 02/11/24 15:07 73 02/11/24 11:37 36.6 C 67 20 110/74 93 Room Air 02/11/24 08:00 Room Air 02/11/24 07:35 36.7 C 70 18 148/79 H 95 Room Air 02/11/24 07:29 71 Laboratory Results 02/11/24 02/10/24 Range/Units 08:19 06:23 WBC 6.43 (4.8-10.8) K/ul RBC 3.35 L (4.20-5.40) M/uL Hgb 8.8 L (12.0-16.0) g/dl Hct 27.7 L (37.0-47.0) % MCV 82.7 (80.0-100.0) fL MCH 26.3 (25.0-34.0) pg MCHC 31.8 L (32.0-36.0) g/dL RDW Std Deviation 52.5 H (36.4-46.3) fL RDW Coeff of Tiffanie 18.7 H (11.5-14.5) % Plt Count 347 (130-400) K/uL MPV 9.8 (9.4-12.4) fL Absolute Nucleated RBC 0.03 (0.00-0.12) K/uL Nucleated RBC % (auto) 0.5 % Sodium 139 (136-145) mmol/L Potassium 3.5 (3.5-5.1) mmol/L Chloride 105 (98-107) mmol/L Carbon Dioxide 27 (21-32) mmol/L Anion Gap 7 (3-11) BUN 22 (6-23) mg/dl Creatinine 0.71 (0.6-1.2) mg/dl Est Cr Clr Drug Dosing 70.1 ml/min Est GFR ( Amer) 99.3 ml/min Est GFR (Non-Af Amer) 85.7 ml/min BUN/Creatinine Ratio 31.0 H (10-20) Glucose 99 (70-99(Fasting)) mg/dl Calcium 8.3 L (8.6-10.3) mg/dl Phosphorus 2.6 (2.5-4.9) mg/dl Magnesium 1.8 (1.7-2.4) mg/dl Hepatitis C Ab (EIA) NON-REACTIVE (NON-REACTIVE) Medications Administered Current Inpatient Medications Acetaminophen (Acetaminophen 325 Mg Tab) 650 mg PO Q4H PRN PRN Reason: Pain or Fever Stop: 03/04/24 15:25 Last Admin: 02/03/24 18:15 Dose: 650 mg Apixaban (Apixaban 5 Mg Tablet) 5 mg PO BID [facility] Stop: 03/11/24 10:29 Last Admin: 02/11/24 08:54 Dose: 5 mg Atorvastatin Calcium (At[facility]vastatin 20 Mg Tab) [facility]: 03/05/24 08:59 Escitalopram Oxalate (Escitalopram Oxalate 20 Mg Tab) 20 mg PO QAM [facility] Stop: 03/05/24 08:59 Last Admin: 02/11/24 08:54 Dose: 20 mg Fluconazole (Fluconazole 100 Mg Tab) 400 mg PO DAILY [facility] Stop: 03/09/24 08:59 Last Admin: 02/11/24 08:55 Dose: 400 mg Ampicillin Sodium 2,000 mg/ (Sodium Chloride) 100 mls @ 200 mls/hr IV Q4H [facility] Stop: 02/21/24 12:59 Last Infusion: 02/11/24 17:24 Dose: Infused Hydrocortisone Sodium (Succinate 25 mg/ Syringe) 0.5 mls @ 4 mls/min IV BID [facility] Stop: 03/12/24 08:59 Last Admin: 02/11/24 09:01 Dose: 4 mls/min Losartan Potassium (Losartan Potassium 25 Mg Tab) 25 mg PO QAM [facility] Stop: 03/11/24 12:14 Last Admin: 02/11/24 08:52 Dose: 25 mg Melatonin (Melatonin 3 Mg Tab) 3 mg PO HS [facility] Stop: 03/04/24 20:59 Last Admin: 02/10/24 20:24 Dose: 3 mg Metoprolol Succinate (Metoprolol Succ 50mg Ext Rel Tab) 50 mg PO BID [facility] Stop: 03/11/24 20:59 Last Admin: 02/11/24 08:54 Dose: 50 mg Ondansetron HCl (Ondansetron Inj 2 Mg/Ml 2 Ml Vial) 4 mg IV Q6H PRN PRN Reason: Nausea Stop: 03/04/24 15:25 Oxybutynin Chloride (Oxybutynin Chloride Xl 5 Mg Tabcr) 15 mg PO [facility] Stop: 03/05/24 08:59 Last Admin: 02/11/24 08:52 Dose: 15 mg Pantoprazole Sodium (Pantoprazole 40 Mg Tab) 40 mg PO [facility]; Protocol Stop: 03/05/24 08:59 Last Admin: 02/11/24 08:55 Dose: 40 mg Polyethylene Glycol (Polyethylene (Miralax) 17 Gm Pack) 17 gm PO DAILY [facility] Stop: 03/12/24 08:59 Last Admin: 02/11/24 08:58 Dose: 17 gm Prednisone (Prednisone 10 Mg Tablet) 10 mg PO [facility] Stop: 03/05/24 08:59 Sennosides (Senna 8.6 Mg Tab) 8.6 mg PO QAM [facility] Stop: 03/12/24 08:59 Last Admin: 02/11/24 08:56 Dose: 8.6 mg Teriflunomide (Teriflunomide 14 Mg Tab) 14 mg PO QPM [facility] Stop: 03/08/24 20:59 Last Admin: 02/10/24 20:25 Dose: Not Given Tizanidine HCl (Tizanidine Hcl 4 Mg Tablet) 4 mg PO QID [facility] Stop: 03/04/24 16:59 Last Admin: 02/11/24 16:43 Dose: 4 mg Vitamin D (Cholecalciferol 25 Mcg (1000 Units) Tab) 25 mcg PO QAM [facility] Stop: 03/05/24 08:59 Last Admin: 02/11/24 08:51 Dose: 25 mcg (1) Sepsis Sepsis acute organ dysfunction status: unspecified Sepsis type: sepsis due to unspecified organism Qualified Code(s): A41.9 - Sepsis, unspecified organism (2) UTI (urinary tract infection) Hematuria presence: without hematuria Urinary tract infection type: acute cystitis Qualified Code(s): N30.00 - Acute cystitis without hematuria
[2024-02-11] MEDS ORDERED: NON-FORMULARY PATIENT'S OWN MED SCH (21:00)
[2024-02-12 05:57] LABS: Hematocrit (blood only) 27.8 % (37.0-47.0); Hemoglobin 8.7 g/dl (12.0-16.0); Mean Corpuscular Hemoglobin 26.4 pg (25.0-34.0); Mean Corpuscular Hgb Conc 31.3 g/dL (32.0-36.0); Mean Corpuscular Volume 84.5 fL (80.0-100.0); Mean Platelet Volume 10.1 fL (9.4-12.4); Platelet Count 372 K/uL (130-400); RDW Coefficient of Variation 18.6 % (11.5-14.5); RDW Standard Deviation 52.8 fL (36.4-46.3); Red Blood Count 3.29 M/uL (4.20-5.40); White Blood Count 7.24 K/ul (4.8-10.8)
[2024-02-12 06:14] LABS: BUN Creatinine Ratio 35.4 (10-20); Creatinine Clr Calc Pharmacy 77.7 ml/min; Est GFR (African American) 103.5 ml/min; Est GFR (Non-African American) 89.3 ml/min; Magnesium 1.7 mg/dl (1.7-2.4); Phosphorus 3.2 mg/dl (2.5-4.9); Potassium 3.9 mmol/L (3.5-5.1)
--- NOTE | 2024-02-12 09:00 | Hospitalist Progress Note ---
Date of Service February 12, 2024 Assessment & Plan (1) Sepsis: (2) UTI (urinary tract infection): (3) Cellulitis of left lower leg: (4) Elevated troponin: (5) Diarrhea: (6) Hypomagnesemia: (7) Chronic refractory osteomyelitis of ankle: (8) CAD (coronary artery disease): (9) History of pulmonary embolism: (10) S/P IVC filter: (11) Paroxysmal atrial fibrillation: (12) Multiple sclerosis: (13) Neurogenic bladder: (14) Chronic anemia: (15) Rosacea: (16) Breast cancer: Plan Patient is 73-year-old female with PMH HTN, CAD, history NSTEMI, paroxysmal atrial fibrillation, history of PE, DVT, chronic anticoagulation on Eliquis, MS, neurogenic bladder requiring self catheterization, chronic anemia, rosacea, chronic osteomyelitis right lower extremity, history of breast cancer who presented to ER with complaint of tactile fevers, generalized weakness, diarrhea x 1 day. Sepsis Complicated UTI LLE Cellulitis Sepsis. Possible source UTI, possible LLE cellulitis, chronic R ankle wound In ER T: 36.2 C, P: 102, RR: 16, BP 117/76, 96% on room air. WBC: 19, lactate: 1.8, Procalcitonin: 9 CXR: Cardiomegaly with pulmonary vascular prominence Arterial lower extremity Doppler: There is no sonographic evidence of high-grade stenosis or focal vessel cut off seen throughout the arteries of the right or left lower extremity. In ER given 1 L NSS, cefepime, daptomycin. Reevaluation. Patient awake, alert and oriented x 3. BP 115/75, P: 112, R: 20, 94% on room air. Brisk capillary refill. Lungs clear to auscultation, sinus tachycardia. Blood culturex1 from 02/02 growing Group B Beta strep, and Enterococcus Blood Cx (Fungal) x2 from 02/02 and 02/03 - also growing yeast/uvaldo Blood cultx (Fungal) from 02/04 - pending until now - again positive for Uvaldo - repeat fungal cultx ordered Blood cultx from 02/05 - negative for 5 days R ankle wound growing E. faecalis Biofire showing E faecalis + and strep + Urine culture (02/05) - posit. for uvaldo Catheter tip cultx (02/08) negative Cefepime, vancomycin switched to Cefepime with Daptomycin Caspofungin added on 02/04 Bolus with gentle IVF Stool studies, C-diff if recurrent diarrhea Wound nurse consult ID consulted, appreciate recs -recommended transitioning current regimen to Ampicillin and po fluconazole -remove port (port now removed - 02/08) -baclofen pump can remain Bacteremia Fungemia Blood culture from 02/02 growing Group B Beta strep, Enterococcus faecalis Blood Cx (Fungal) x2 from 02/02 and 02/03 - also growing yeast/uvaldo Blood cultx (Fungal) from 02/04 - pending until now - again positive for Uvaldo - repeat fungal cultx ordered -> will need to further discuss w/ ID R ankle wound growing E. faecalis Urine culture (02/05) - posit. for uvaldo Catheter tip cultx (02/08) negative Pt with indwelling R IJ port, previously placed for osteomyelitis treatment for RIGHT ankle in Sep 2023 , will likely need removal -General surgery consulted, appreciate recs - s/p removal of port on 02/08 Pt also with indwelling baclofen pump -Pain management previously consulted, appreciate recs for potential removal -pain pump can remain per ID Cardiology consulted, appreciate recs -BALA on 02/06, no noted vegetations Previously on IV Cefepime, Daptomycin and Caspofungin ID consulted-appreciate recs transition to IV Ampicillin and po Fluconazole Septic Shock-Resolved Pt with persistently low blood pressure in setting of above Receiving cautious fluid boluses On stress IV hydrocortisone 50mg q6h - taper off Midodrine 5mg TID started, held on 02/05 due to high blood pressures - now stopped Continue to monitor Elevated troponin hs-Troponin:1140-->1375--->1833 CK: 369 Initial EKG sinus rhythm, rate 99, Q waves septal leads repeat EKG sinus tachycardia, rate 116, Q waves septal leads. Q waves septal leads seen in prior EKGs per chart review Patient without chest pain, shortness of breath, dizziness, palpitations, dizziness Likely Type II NSTEMI Echo with EF> 70%, Grade I diastolic dysfunction, mild aortic stenosis Continue metoprolol, atorvastatin Continue Eliquis -> iv heparin as port to be removed - plan to go back on eliquis Cardiology consulted appreciate recs -no procedure -cardiac MRI -continue metoprolol - metoprolol succinate 50 bid, and added losartan 25 Diarrhea 2 episodes diarrhea day before admission Denies abdominal pain. No further diarrhea If recurrent diarrhea plan to obtain stool culture, C. difficile CT abdomen pelvis with no acute pathology Electrolyte Abnormalities: -Hypomagnesemia: Magnesium 1.5 on admission. Replete and monitor Chronic refractory osteomyelitis of ankle History of chronic osteomyelitis right ankle Right ankle x-ray: No evidence osteomyelitis Chronic right ankle ulcer R ankle wound growing E faecalis Wound nurse consult Transitioned to Ampicillin Elevated CK Rhabdo Ck elevated at 239 IV hydration as above CAD (coronary artery disease) History nonocclusive CAD. History NSTEMI Workup as above Continue metoprolol tartrate with holding parameters, statin History of pulmonary embolism S/P IVC filter History of PE. IVC filter in place. History DVT left lower extremity in 09/2023. Eliquis on hold for upcoming procedures, held on 02/05 (last dose in AM), transitioned to IV heparin - switched back to Eliquis on 02/09 Patient denies any missed doses Paroxysmal atrial fibrillation Anticoagulated on Eliquis Current sinus tachycardia Eliquis on hold for upcoming procedures, held on 02/05 (last dose in AM), transitioned to IV heparin, now back on Eliquis as of 02/09 Continue metoprolol tartrate, IV heparin as above Metoprolol dose increased overnight for SVT, as above Multiple sclerosis Neurogenic bladder Self catheterization at home Has baclofen pump On Aubagio, prednisone, tizanidine Zuñiga catheter Pain management consult in setting of need for MRI, consider po baclofen dose around imaging Chronic anemia Hgb: 9.6. Baseline in 9's Monitor H&H Rosacea On chronic doxycycline. Will hold doxycycline for now as on above antibiotics Breast cancer History left breast cancer s/p surgery, radiation Diet: DVT Prophylaxis: On Eliquis Full Code as per discussion with pt Dispo: PT/OT ordered Admission and Anticipated Discharge Date Admission Date: February 03, 2024 Subjective Pt seen in follow up of bacteremia/ fungemia Currently laying in bed in NAD Denies fever, chills, chest pain, shortness of breath. also denies abd. pain, n/v S/p port removal by gen surgery, eliquis restarted on 02/09 Per cardiology on metoprolol succinate 50 bid + losartan 25 daily Blood cultx (02/05) - negat. for 5 days. Blood cultx (Fungal) from 02/04 -pending until today - and again positive for uvaldo. Repeat fungal cultx ordered. Will further discuss w/ ID Cultx from port (02/08) negative Review of Systems Review of Systems: All systems reviewed & are unremarkable except as noted in Subjective Physical Exam Physical Exam: General: WD/WN F in NAD HEENT: NC/AT CV: RRR, Normal s1, s2. No murmurs appreciated Resp: Breath sounds clear bilaterally, no increased effort of breathing. Abdomen: Soft, nontender, nondistended. Extremities: + mild edema in lower extremities bilaterally, eliza. L pedal. Neuro: awake, alert, oriented, answers appropriately, no facial asymmetry, speech fluent, moves extremities Skin: LLE with erythema and edema to the leg and foot- improved Results & Data Results & Data Vital Signs (Past 12 Hours) Vital Signs Temp Pulse Pulse Resp BP Pulse Ox O2 Del Method 02/12/24 07:53 36.6 C 69 20 167/97 H 94 Room Air 02/12/24 07:22 67 02/12/24 03:10 36.9 C 67 17 155/83 H 93 Room Air 02/12/24 01:20 69 02/11/24 22:48 Room Air 02/11/24 22:40 36.4 C L 68 18 157/79 H 92 Room Air Laboratory Results 02/12/24 02/11/24 02/10/24 Range/Units 05:20 08:19 06:23 WBC 7.24 6.43 (4.8-10.8) K/ul RBC 3.29 L 3.35 L (4.20-5.40) M/uL Hgb 8.7 L 8.8 L (12.0-16.0) g/dl Hct 27.8 L 27.7 L (37.0-47.0) % MCV 84.5 82.7 (80.0-100.0) fL MCH 26.4 26.3 (25.0-34.0) pg MCHC 31.3 L 31.8 L (32.0-36.0) g/dL RDW Std Deviation 52.8 H 52.5 H (36.4-46.3) fL RDW Coeff of Tiffanie 18.6 H 18.7 H (11.5-14.5) % Plt Count 372 347 (130-400) K/uL MPV 10.1 9.8 (9.4-12.4) fL Absolute Nucleated RBC 0.03 (0.00-0.12) K/uL Nucleated RBC % (auto) 0.5 % Sodium 138 139 (136-145) mmol/L Potassium 3.9 3.5 (3.5-5.1) mmol/L Chloride 103 105 (98-107) mmol/L Carbon Dioxide 30 27 (21-32) mmol/L Anion Gap 5 7 (3-11) BUN 23 22 (6-23) mg/dl Creatinine 0.65 0.71 (0.6-1.2) mg/dl Est Cr Clr Drug Dosing 77.7 70.1 ml/min Est GFR ( Amer) 103.5 99.3 ml/min Est GFR (Non-Af Amer) 89.3 85.7 ml/min BUN/Creatinine Ratio 35.4 H 31.0 H (10-20) Glucose 98 99 (70-99(Fasting)) mg/dl Calcium 8.0 L 8.3 L (8.6-10.3) mg/dl Phosphorus 3.2 2.6 (2.5-4.9) mg/dl Magnesium 1.7 1.8 (1.7-2.4) mg/dl Hepatitis C Ab (EIA) NON-REACTIVE (NON-REACTIVE) Medications Administered Current Inpatient Medications Acetaminophen (Acetaminophen 325 Mg Tab) 650 mg PO Q4H PRN PRN Reason: Pain or Fever Stop: 03/04/24 15:25 Last Admin: 02/03/24 18:15 Dose: 650 mg Apixaban (Apixaban 5 Mg Tablet) 5 mg PO BID [facility] Stop: 03/11/24 10:29 Last Admin: 02/12/24 07:49 Dose: 5 mg Atorvastatin Calcium (Atorvastatin 20 Mg Tab) 20 mg PO QAM [facility] Stop: 03/05/24 08:59 Escitalopram Oxalate (Escitalopram Oxalate 20 Mg Tab) 20 mg PO QAM [facility] Stop: 03/05/24 08:59 Last Admin: 02/12/24 07:43 Dose: 20 mg Fluconazole (Fluconazole 100 Mg Tab) 400 mg PO DAILY [facility] Stop: 03/09/24 08:59 Last Admin: 02/12/24 07:44 Dose: 400 mg Ampicillin Sodium 2,000 mg/ (Sodium Chloride) 100 mls @ 200 mls/hr IV Q4H [facility] Stop: 02/21/24 12:59 Last Admin: 02/12/24 08:33 Dose: 200 mls/hr Hydrocortisone Sodium (Succinate 25 mg/ Syringe) 0.5 mls @ 4 mls/min IV BID [facility] Stop: 03/12/24 08:59 Last Admin: 02/12/24 08:33 Dose: 4 mls/min Magnesium Sulfate/Dextrose (Magnesium Sulfate / D5w) 1 gm in 100 mls @ 50 mls/hr IV ONE ONE Stop: 02/12/24 10:58 Losartan Potassium (Losartan Potassium 25 Mg Tab) [facility] Stop: 03/11/24 12:14 Last Admin: 02/12/24 07:43 Dose: 25 mg Melatonin (Melatonin 3 Mg Tab) 3 mg PO HS [facility] Stop: 03/04/24 20:59 Last Admin: 02/11/24 20:07 Dose: 3 mg Metoprolol Succinate (Metoprolol Succ 50mg Ext Rel Tab) 50 mg PO BID [facility] Stop: 03/11/24 20:59 Last Admin: 02/12/24 07:50 Dose: 50 mg Ondansetron HCl (Ondansetron Inj 2 Mg/Ml 2 Ml Vial) 4 mg IV Q6H PRN PRN Reason: Nausea Stop: 03/04/24 15:25 Oxybutynin Chloride (Oxybutynin Chloride Xl 5 Mg Tabcr) 15 mg PO [facility] Stop: 03/05/24 08:59 Last Admin: 02/12/24 07:45 Dose: 15 mg Pantoprazole Sodium (Pantoprazole 40 Mg Tab) 40 mg PO [facility]; Protocol Stop: 03/05/24 08:59 Last Admin: 02/12/24 07:48 Dose: 40 mg Polyethylene Glycol (Polyethylene (Miralax) 17 Gm Pack) 17 gm PO DAILY [facility] Stop: 03/12/24 08:59 Last Admin: 02/12/24 07:48 Dose: Not Given Prednisone (Prednisone 10 Mg Tablet) 10 mg PO [facility] Stop: 03/05/24 08:59 Sennosides (Senna 8.6 Mg Tab) 8.6 mg PO [facility] Stop: 03/12/24 08:59 Last Admin: 02/12/24 07:48 Dose: Not Given Teriflunomide (Teriflunomide 14 Mg Tab) 14 mg PO QPM [facility] Stop: 03/08/24 20:59 Last Admin: 02/11/24 20:19 Dose: 14 mg Tizanidine HCl (Tizanidine Hcl 4 Mg Tablet) 4 mg PO QID [facility] Stop: 03/04/24 16:59 Last Admin: 02/12/24 07:48 Dose: 4 mg Vitamin D (Cholecalciferol 25 Mcg (1000 Units) Tab) 25 mcg PO QAM [facility] Stop: 03/05/24 08:59 Last Admin: 02/12/24 07:49 Dose: 25 mcg (1) Sepsis Sepsis acute organ dysfunction status: unspecified Sepsis type: sepsis due to unspecified organism Qualified Code(s): A41.9 - Sepsis, unspecified organism (2) UTI (urinary tract infection) Hematuria presence: without hematuria Urinary tract infection type: acute cystitis Qualified Code(s): N30.00 - Acute cystitis without hematuria
[2024-02-12] MEDS: MAGNESIUM SULFATE / D5W 1 GM/100 ML BAG IV ONE (10:05)
--- NOTE | 2024-02-12 10:07 | Cardiology Progress Note ---
Date of Service February 12, 2024 Assessment & Plan (1) Hypertension: (2) Paroxysmal atrial fibrillation: (3) Sepsis: (4) Myocardial strain: Plan Fungemia, group B strep bacteremia Paroxysmal supraventricular tachycardia Paroxysmal atrial fibrillation (brief, asymptomatic runs overnight 02/12/2024) History of DVT BALA performed 02/07/24=No vegetation, mild to moderate MR, Mild Status post surgical removal of right-sided Mediport on 02/09/2024-catheter tip culture with no growth Labile blood pressure readings noted. Continue metoprolol succinate (titrated to 50 mg twice daily) and losartan as ordered. Midodrine discontinued. Continue apixaban and statin therapy as ordered. No further inpatient cardiac testing or intervention recommended at this time. Cardiology will sign off. Please call with additional concerns/questions. Admission and Anticipated Discharge Date Admission Date: February 03, 2024 Subjective Patient seen and examined at the bedside. Feeling better today. Telemetry reveals sinus rhythm in 70s with short runs of paroxysmal atrial fibrillation at rate of 100s-110 bpm. Patient denies chest pain or palpitations. Labile blood pressure readings noted however much improved after a.m. medications. Offers no new concerns/complaints. Review of Systems Review of Systems: All systems reviewed & are unremarkable except as noted in Subjective Physical Exam Constitutional: well nourished; no acute distress Respiratory: no respiratory distress and no labored breathing Auscultation: no crackles, no rales, no rhonchi and no wheezes Cardiovascular: Rate/Rhythm: regular rate and regular rhythm Heart Sounds: normal S1, normal S2 and + murmur (1/6 systolic ejection murmur) Vessels: no JVD Extremities: + edema Gastrointestinal (Abdomen): Inspection/Auscultation: + abdomen abnormal to inspection and abdomen not distended Percussion/Palpation: abdomen soft; abdomen nontender, no guarding and abdomen not rigid Neurologic: CN's II-XI intact bilaterally and moves all extremities Results & Data Vital Signs (Past 12 Hours) Vital Signs Temp Pulse Pulse Resp BP Pulse Ox O2 Del Method 02/12/24 07:53 36.6 C 69 20 167/97 H 94 Room Air 02/12/24 07:22 67 02/12/24 03:10 36.9 C 67 17 155/83 H 93 Room Air 02/12/24 01:20 69 02/11/24 22:48 Room Air 02/11/24 22:40 36.4 C L 68 18 157/79 H 92 Room Air Laboratory Results CBC 02/12/24 Range/Units 05:20 WBC 7.24 (4.8-10.8) K/ul RBC 3.29 L (4.20-5.40) M/uL Hgb 8.7 L (12.0-16.0) g/dl Hct 27.8 L (37.0-47.0) % Plt Count 372 (130-400) K/uL Comprehensive Metabolic Panel 02/12/24 Range/Units 05:20 Sodium 138 (136-145) mmol/L Potassium 3.9 (3.5-5.1) mmol/L Chloride 103 (98-107) mmol/L Carbon Dioxide 30 (21-32) mmol/L BUN 23 (6-23) mg/dl Creatinine 0.65 (0.6-1.2) mg/dl Glucose 98 (70-99(Fasting)) mg/dl Calcium 8.0 L (8.6-10.3) mg/dl Intake and Output 02/11/24 02/12/24 02/12/24 22:59 06:59 14:59 Intake Total 360 / 1100 300 / 1100 100 / 100 Output Total 550 / 1601 400 / 1601 Balance -190 / -501 -100 / -501 100 / 100 Intake: IV 200 / 600 200 / 600 100 / 100 Ampicillin 2,000 mg In Sodium 200 / 600 200 / 600 100 / 100 Chlor 0.9% Mini-B 100 ml @ 200 mls/hr IV Q4H [facility] Rx#:[id number] Oral 160 / 500 100 / 500 Output: Urine Amount (Catheter) 550 / 1600 400 / 1600 Zuñiga/Indwelling 550 / 1600 400 / 1600 Other: Weight 73 kg Weight Measurement Method [facility] (1) Hypertension Hypertension type: primary hypertension Qualified Code(s): I10 - Essential (primary) hypertension (3) Sepsis Sepsis acute organ dysfunction status: unspecified Sepsis type: sepsis due to unspecified organism Qualified Code(s): A41.9 - Sepsis, unspecified organism
[2024-02-13 07:33] LABS: Hematocrit (blood only) 29.9 % (37.0-47.0); Hemoglobin 9.3 g/dl (12.0-16.0); Mean Corpuscular Hemoglobin 26.3 pg (25.0-34.0); Mean Corpuscular Hgb Conc 31.1 g/dL (32.0-36.0); Mean Corpuscular Volume 84.5 fL (80.0-100.0); Mean Platelet Volume 9.3 fL (9.4-12.4); Platelet Count 374 K/uL (130-400); RDW Coefficient of Variation 18.7 % (11.5-14.5); RDW Standard Deviation 53.8 fL (36.4-46.3); Red Blood Count 3.54 M/uL (4.20-5.40); White Blood Count 6.91 K/ul (4.8-10.8)
[2024-02-13 08:18] LABS: Albumin Globulin Ratio 1.2 (0.9-2); Albumin Level 2.8 gm/dl (3.4-5.0); BUN Creatinine Ratio 26.7 (10-20); Bilirubin,Total 0.3 mg/dl (0.2-1.0); Calcium 8.2 mg/dl (8.6-10.3); Creatinine Clr Calc Pharmacy 68.6 ml/min; Est GFR (African American) 92.9 ml/min; Est GFR (Non-African American) 80.2 ml/min; Globulin 2.4 gm/dl (2.5-4.0); Magnesium 1.9 mg/dl (1.7-2.4); Phosphorus 3.3 mg/dl (2.5-4.9); Potassium 4.2 mmol/L (3.5-5.1); Total Protein 5.2 gm/dl (6.0-8.3)
--- NOTE | 2024-02-13 10:01 | Hospitalist Progress Note ---
Date of Service February 13, 2024 Assessment & Plan (1) Sepsis: (2) UTI (urinary tract infection): (3) Cellulitis of left lower leg: (4) Elevated troponin: (5) Diarrhea: (6) Hypomagnesemia: (7) Chronic refractory osteomyelitis of ankle: (8) CAD (coronary artery disease): (9) History of pulmonary embolism: (10) S/P IVC filter: (11) Paroxysmal atrial fibrillation: (12) Multiple sclerosis: (13) Neurogenic bladder: (14) Chronic anemia: (15) Rosacea: (16) Breast cancer: Plan Patient is 73-year-old female with PMH HTN, CAD, history NSTEMI, paroxysmal atrial fibrillation, history of PE, DVT, chronic anticoagulation on Eliquis, MS, neurogenic bladder requiring self catheterization, chronic anemia, rosacea, chronic osteomyelitis right lower extremity, history of breast cancer who presented to ER with complaint of tactile fevers, generalized weakness, diarrhea x 1 day. Sepsis Complicated UTI LLE Cellulitis Sepsis. Possible source UTI, possible LLE cellulitis, chronic R ankle wound In ER T: 36.2 C, P: 102, RR: 16, BP 117/76, 96% on room air. WBC: 19, lactate: 1.8, Procalcitonin: 9 CXR: Cardiomegaly with pulmonary vascular prominence Arterial lower extremity Doppler: There is no sonographic evidence of high-grade stenosis or focal vessel cut off seen throughout the arteries of the right or left lower extremity. In ER given 1 L NSS, cefepime, daptomycin. Reevaluation. Patient awake, alert and oriented x 3. BP 115/75, P: 112, R: 20, 94% on room air. Brisk capillary refill. Lungs clear to auscultation, sinus tachycardia. Blood culturex1 from 02/02 growing Group B Beta strep, and Enterococcus Blood Cx (Fungal) x2 from 02/02 and 02/03 - also growing yeast/uvaldo Blood cultx (Fungal) from 02/04 - again positive for Uvaldo - repeat fungal cultx ordered Blood cultx from 02/05 - negative for 5 days R ankle wound growing E. faecalis Biofire showing E faecalis + and strep + Urine culture (02/05) - posit. for uvaldo Catheter tip cultx (02/08) negative Cefepime, vancomycin switched to Cefepime with Daptomycin Caspofungin added on 02/04 Bolus with gentle IVF Stool studies, C-diff if recurrent diarrhea Wound nurse consult ID consulted, appreciate recs -recommended transitioning current regimen to Ampicillin and po fluconazole -remove port (port now removed - 02/08) -baclofen pump can remain Bacteremia Fungemia Blood culture from 02/02 growing Group B Beta strep, Enterococcus faecalis Blood Cx (Fungal) x2 from 02/02 and 02/03 - also growing yeast/uvaldo Blood cultx (Fungal) from 02/04 - again positive for Uvaldo - repeat fungal cultx ordered -> ID contacted and discussed with, recommendations obtained R ankle wound growing E. faecalis Urine culture (02/05) - posit. for uvaldo Catheter tip cultx (02/08) negative Pt with indwelling R IJ port, previously placed for osteomyelitis treatment for RIGHT ankle in Sep 2023 , will likely need removal -General surgery consulted, appreciate recs - s/p removal of port on 02/08 Pt also with indwelling baclofen pump -Pain management previously consulted, appreciate recs for potential removal -pain pump can remain per ID Cardiology consulted, appreciate recs -BALA on 02/06, no noted vegetations Previously on IV Cefepime, Daptomycin and Caspofungin ID consulted-appreciate recs transition to IV Ampicillin and po Fluconazole 02/12 Contacted and updated ID - discussed recommendations - Recommendations: - Continue 400 mg po qd for fungemia - Continue ampicillin 2 gm iv q4 hours for both group B Strep and Enterococcus - Anticipate total 2 weeks of ampicillin iv therapy from 02/06/24 to 02/19/24 - Anticipate total 2 weeks of fluconazole from port removal, ending on 02/22/24 Septic Shock-Resolved Pt with persistently low blood pressure in setting of above Receiving cautious fluid boluses On stress IV hydrocortisone 50mg q6h - taper off Midodrine 5mg TID started, held on 02/05 due to high blood pressures - now stopped Continue to monitor Elevated troponin hs-Troponin:1140-->1375--->1833 CK: 369 Initial EKG sinus rhythm, rate 99, Q waves septal leads repeat EKG sinus tachycardia, rate 116, Q waves septal leads. Q waves septal leads seen in prior EKGs per chart review Patient without chest pain, shortness of breath, dizziness, palpitations, dizziness Likely Type II NSTEMI Echo with EF> 70%, Grade I diastolic dysfunction, mild aortic stenosis Continue metoprolol, atorvastatin Continue Eliquis -> iv heparin as port to be removed - plan to go back on eliquis Cardiology consulted appreciate recs -no procedure -cardiac MRI -continue metoprolol - metoprolol succinate 50 bid, and added losartan 25 Diarrhea 2 episodes diarrhea day before admission Denies abdominal pain. No further diarrhea If recurrent diarrhea plan to obtain stool culture, C. difficile CT abdomen pelvis with no acute pathology Electrolyte Abnormalities: -Hypomagnesemia: Magnesium 1.5 on admission. Replete and monitor Chronic refractory osteomyelitis of ankle History of chronic osteomyelitis right ankle Right ankle x-ray: No evidence osteomyelitis Chronic right ankle ulcer R ankle wound growing E faecalis Wound nurse consult Transitioned to Ampicillin Elevated CK Rhabdo Ck elevated at 239 IV hydration as above CAD (coronary artery disease) History nonocclusive CAD. History NSTEMI Workup as above Continue metoprolol tartrate with holding parameters, statin History of pulmonary embolism S/P IVC filter History of PE. IVC filter in place. History DVT left lower extremity in 09/2023. Eliquis on hold for upcoming procedures, held on 02/05 (last dose in AM), transi tioned to IV heparin - switched back to Eliquis on 02/09 Patient denies any missed doses Paroxysmal atrial fibrillation Anticoagulated on Eliquis Current sinus tachycardia Eliquis on hold for upcoming procedures, held on 02/05 (last dose in AM), transitioned to IV heparin, now back on Eliquis as of 02/09 Continue metoprolol tartrate, IV heparin as above Metoprolol dose increased overnight for SVT, as above Multiple sclerosis Neurogenic bladder Self catheterization at home Has baclofen pump On Aubagio, prednisone, tizanidine Zuñiga catheter Pain management consult in setting of need for MRI, consider po baclofen dose around imaging Chronic anemia Hgb: 9.6. Baseline in ' Monitor H&H Rosacea On chronic doxycycline. Will hold doxycycline for now as on above antibiotics Breast cancer History left breast cancer s/p surgery, radiation Diet: DVT Prophylaxis: On Eliquis Full Code as per discussion with pt Dispo: PT/OT ordered Admission and Anticipated Discharge Date Admission Date: February 03, 2024 Subjective Pt seen in follow up of bacteremia/ fungemia Currently laying in bed in [facility] Denies fever, chills, chest pain, shortness of breath. also denies abd. pain, n/v S/p port removal by gen surgery apurvamanuel restarted on 02/09 Per cardiology on metoprolol succinate 50 bid + losartan 25 daily Blood cultx (02/05) - negat. for 5 days. Blood cultx (Fungal) from 02/04 - positive for uvaldo. Repeat fungal cultx ordered. Cultx from port (02/08) negative ID contacted and discussed with - recommendations obtained Review of Systems Review of Systems: All systems reviewed & are unremarkable except as noted in Subjective Physical Exam Physical Exam: General: WD/WN F in NAD HEENT: NC/AT CV: RRR, Normal s1, s2. No murmurs appreciated Resp: Breath sounds clear bilaterally, no increased effort of breathing. Abdomen: Soft, nontender, nondistended. Extremities: + mild edema in lower extremities bilaterally, eliza. L pedal. Neuro: awake, alert, oriented, answers appropriately, no facial asymmetry, speech fluent, moves extremities Skin: LLE with erythema and edema to the leg and foot- improved Results & Data Results & Data Vital Signs (Past 12 Hours) Vital Signs Temp Pulse Pulse Resp BP Pulse Ox O2 Del Method 02/13/24 07:48 36.7 C 67 16 129/75 93 Room Air 02/13/24 07:00 67 02/13/24 04:08 36.4 C L 67 16 161/81 H 93 Room Air 02/13/24 00:04 36.8 C 67 18 145/83 H 93 Room Air 02/12/24 23:16 70 Laboratory Results 02/13/24 Range/Units 07:08 WBC 6.91 (4.8-10.8) K/ul RBC 3.54 L (4.20-5.40) M/uL Hgb 9.3 L (12.0-16.0) g/dl Hct 29.9 L (37.0-47.0) % MCV 84.5 (80.0-100.0) fL MCH 26.3 (25.0-34.0) pg MCHC 31.1 L (32.0-36.0) g/dL RDW Std Deviation 53.8 H (36.4-46.3) fL RDW Coeff of Tiffanie 18.7 H (11.5-14.5) % Plt Count 374 (130-400) K/uL MPV 9.3 L (9.4-12.4) fL Sodium 139 (136-145) mmol/L Potassium 4.2 (3.5-5.1) mmol/L Chloride 104 (98-107) mmol/L Carbon Dioxide 32 (21-32) mmol/L Anion Gap 3 (3-11) BUN 20 (6-23) mg/dl Creatinine 0.75 (0.6-1.2) mg/dl Est Cr Clr Drug Dosing 68.6 ml/min Est GFR ( Amer) 92.9 ml/min Est GFR (Non-Af Amer) 80.2 ml/min BUN/Creatinine Ratio 26.7 H (10-20) Glucose 96 (70-99(Fasting)) mg/dl Calcium 8.2 L (8.6-10.3) mg/dl Phosphorus 3.3 (2.5-4.9) mg/dl Magnesium 1.9 (1.7-2.4) mg/dl Total Bilirubin 0.3 (0.2-1.0) mg/dl AST 14 (13-39) U/L ALT 16 (7-52) U/L Alkaline Phosphatase 42 (34-104) U/L Total Protein 5.2 L (6.0-8.3) gm/dl Albumin 2.8 L (3.4-5.0) gm/dl Globulin 2.4 L (2.5-4.0) gm/dl Albumin/Globulin Ratio 1.2 (0.9-2) Medications Administered Current Inpatient Medications Acetaminophen (Acetaminophen 325 Mg Tab) 650 mg PO Q4H PRN PRN Reason: Pain or Fever Stop: 03/04/24 15:25 Last Admin: 02/03/24 18:15 Dose: 650 mg Apixaban (Apixaban 5 Mg Tablet) 5 mg PO BID [facility] Stop: 03/11/24 10:29 Last Admin: 02/13/24 08:52 Dose: 5 mg Atorvastatin Calcium (Atorvastatin 20 Mg Tab) 20 mg PO QAM [facility] Stop: 03/05/24 08:59 Escitalopram Oxalate (Escitalopram Oxalate 20 Mg Tab) 20 mg PO QAM [facility] Stop: 03/05/24 08:59 Last Admin: 02/13/24 08:53 Dose: 20 mg Fluconazole (Fluconazole 100 Mg Tab) 400 mg PO DAILY [facility] Stop: 03/09/24 08:59 Last Admin: 02/13/24 08:53 Dose: 400 mg Ampicillin Sodium 2,000 mg/ (Sodium Chloride) 100 mls @ 200 mls/hr IV Q4H [facility] Stop: 02/21/24 12:59 Last Infusion: 02/13/24 09:46 Dose: Infused Hydrocortisone Sodium (Succinate 25 mg/ Syringe) 0.5 mls @ 4 mls/min IV [facility] Stop: 03/15/24 08:59 Losartan Potassium (Losartan Potassium 25 Mg Tab) [facility] [place]: 03/11/24 12:14 Last Admin: 02/13/24 08:52 Dose: 25 mg Melatonin (Melatonin 3 Mg Tab) 3 mg PO HS [facility] Stop: 03/04/24 20:59 Last Admin: 02/12/24 21:01 Dose: 3 mg Metoprolol Succinate (Metoprolol Succ 50mg Ext Rel Tab) 50 mg PO BID [facility] Stop: 03/11/24 20:59 Last Admin: 02/13/24 08:52 Dose: 50 mg Ondansetron HCl (Ondansetron Inj 2 Mg/Ml 2 Ml Vial) 4 mg IV Q6H PRN PRN Reason: Nausea Stop: 03/04/24 15:25 Oxybutynin Chloride (Oxybutynin Chloride Xl 5 Mg Tabcr) 15 mg PO [facility] Stop: 03/05/24 08:59 Last Admin: 02/13/24 08:52 Dose: 15 mg Pantoprazole Sodium (Pantoprazole 40 Mg Tab) 40 mg PO [facility]; Protocol Stop: 03/05/24 08:59 Last Admin: 02/13/24 08:53 Dose: 40 mg Polyethylene Glycol (Polyethylene (Miralax) 17 Gm Pack) 17 gm PO DAILY [facility] Stop: 03/12/24 08:59 Last Admin: 02/13/24 08:54 Dose: 17 gm Prednisone (Prednisone 10 Mg Tablet) 10 mg PO [facility] Stop: 03/05/24 08:59 Sennosides (Senna 8.6 Mg Tab) 8.6 mg PO [facility] Stop: 03/12/24 08:59 Last Admin: 02/13/24 08:53 Dose: 8.6 mg Teriflunomide (Teriflunomide 14 Mg Tab) 14 mg PO QPM [facility] Stop: 03/08/24 20:59 Last Admin: 02/12/24 20:59 Dose: 14 mg Tizanidine HCl (Tizanidine Hcl 4 Mg Tablet) 4 mg PO QID [facility] Stop: 03/04/24 16:59 Last Admin: 02/13/24 08:52 Dose: 4 mg Vitamin D (Cholecalciferol 25 Mcg (1000 Units) Tab) 25 mcg PO QAM [facility] Stop: 03/05/24 08:59 Last Admin: 02/13/24 08:53 Dose: 25 mcg (1) Sepsis Sepsis acute organ dysfunction status: unspecified Sepsis type: sepsis due to unspecified organism Qualified Code(s): A41.9 - Sepsis, unspecified organism (2) UTI (urinary tract infection) Hematuria presence: without hematuria Urinary tract infection type: acute cystitis Qualified Code(s): N30.00 - Acute cystitis without hematuria
--- NOTE | 2024-02-13 13:11 | Infectious Disease Progress Nt ---
Date of Service February 13, 2024 Telehealth Information Non-billable note Assessment & Plan (1) Wound infection: (2) CLABSI (central line-associated bloodstream infection): (3) Bacteremia: (4) Fungemia: Plan Bacteremia w/ Enterococcus and GBS R/o LLE infection vs CLABSI Fungemia w/ C albicans suspected CLABSI R IJ port in place removed on 02/09/24 Hx of hx of UTI, chronic OM of R ankle s/p partial excision of R fibula (10/22/23) complicated by poor wound healing, MS, neurogenic bladder, requiring self-catheterization, HTN, PAF, PE, DVT on Eliquis s/p IVC filte Recommendations: - Continue 400 mg po qd for fungemia - Continue ampicillin 2 gm iv q4 hours for both group B Strep and Enterococcus - Anticipate total 2 weeks of ampicillin iv therapy from 02/06/24 to 02/19/24 - Anticipate total 2 weeks of fluconazole from port removal, ending on 02/22/24 Results & Data Vital Signs (Past 12 Hours) Vital Signs Temp Pulse Pulse Resp BP Pulse Ox O2 Del Method 02/13/24 12:11 Room Air 02/13/24 11:08 36.5 C 68 18 110/74 94 Room Air 02/13/24 07:48 36.7 C 67 16 129/75 93 Room Air 02/13/24 07:00 67 02/13/24 04:08 36.4 C L 67 16 161/81 H 93 Room Air
[2024-02-14 07:45] LABS: Hematocrit (blood only) 29.9 % (37.0-47.0); Hemoglobin 9.1 g/dl (12.0-16.0); Mean Corpuscular Hgb Conc 30.4 g/dL (32.0-36.0); Mean Corpuscular Volume 85.4 fL (80.0-100.0); Mean Platelet Volume 9.7 fL (9.4-12.4); Platelet Count 410 K/uL (130-400); RDW Coefficient of Variation 18.9 % (11.5-14.5); RDW Standard Deviation 55.3 fL (36.4-46.3); White Blood Count 5.81 K/ul (4.8-10.8)
[2024-02-14 08:22] LABS: BUN Creatinine Ratio 26.8 (10-20); Calcium 8.6 mg/dl (8.6-10.3); Creatinine Clr Calc Pharmacy 72.3 ml/min; Est GFR (African American) 99.3 ml/min; Est GFR (Non-African American) 85.7 ml/min; Magnesium 1.8 mg/dl (1.7-2.4); Phosphorus 3.2 mg/dl (2.5-4.9); Potassium 4.3 mmol/L (3.5-5.1)
[2024-02-14] MEDS: HYDROCORTISONE SOD 25 MG in SYRINGE 0 ML IV SCH (09:06)
--- NOTE | 2024-02-14 14:32 | Discharge Summary ---
Date of Service February 14, 2024 Admission HPI Per Admitting Provider Patient is 73-year-old female with PMH HTN, CAD, history NSTEMI, paroxysmal atrial fibrillation, history of PE, DVT, chronic anticoagulation on Eliquis, MS, neurogenic bladder requiring self catheterization, chronic anemia, rosacea, chronic osteomyelitis right lower extremity, history of breast cancer, and others listed below presented to ER with complaint of tactile fevers, generalized weakness, diarrhea x 1 day. History obtained from patient, inpatient and outpatient chart review. Patient states yesterday had tactile fevers. Did not take temperature at home. She reports yesterday had 2 large loose bowel movements. Denies any nausea, vomiting abdominal pain. Patient states did not eat today as is afraid would have recurrent diarrhea. States uses wheelchair and minimal ambulation with walker. Patient states today tried to ambulate however was feeling weak and sat on floor for approximately 1.5 hours. Denies fall, hitting head, dizziness, syncope, chest pain, SOB. Denies any missed Eliquis doses. Patient states 2 weeks ago hit left anterior resendez on car door causing skin tears/abrasions. Self caths approximately 6 times a day. Reports history recurrent UTI. Outpatient urine culture 12/27/2023 + E. coli, Klebsiella pneumoniae. Patient was treated with Bactrim. History DVT left lower extremity in 09/2023. Patient states since left lower extremity has been more swollen than right lower extremity and has had reddish appearance. Patient had port placed 09/2023 due to poor venous access. History chronic osteomyelitis right ankle. Denies melena, hematochezia, noted hematuria. Denies ill contacts, recent travel, diaphoresis, HOLT, vision changes, neck pain, orthopnea, palpitations, cough, sore throat, choking, otalgia, rhinorrhea, abdominal pain, paresthesias, increased extremity edema, rashes. Admission Exam Per Admitting Provider General: no acute distress, non-toxic appearing, WDWN Head: normocephalic, atraumatic Eyes: conjunctiva non-injected, anicteric ENT: normal inspection external ears, nose, mucous membranes mildly dry Neck: supple, trachea midline Lungs: clear, no respiratory distress, no wheezing/rhonchi/rales CV: +tachycardia, rate 112, + murmur Abd: normal BS, soft, non-tender Ext: no calf tenderness. +LLE larger than RLE. LLE: +skin tears abrasions anterior leg +erythema anterior leg extending to dorsal foot without tenderness to palpation, lower leg with slight dusky appearance. RLE: +ulcer right lateral ankle without surrounding erythema or edema, no discharge and non-tender Neuro: A&O x 3, no focal deficits noted, normal affect Skin: warm, dry, +port to right upper chest without edema, erythema or tenderness. skin as above in extremities Principal Diagnosis Bacteremia, Fungemia Chronic osteomyelitis R IJ port removed on 02/09/2024 Discharge Exam General: WD/WN F in NAD HEENT: NC/AT CV: RRR, Normal s1, s2. No murmurs appreciated Resp: Breath sounds clear bilaterally, no increased effort of breathing. Abdomen: Soft, nontender, nondistended. Extremities: + mild edema in lower extremities bilaterally, eliza. L pedal. (improved) Neuro: awake, alert, oriented, answers appropriately, no facial asymmetry, speech fluent, moves extremities Skin: LLE with erythema and edema to the leg and foot- improved Discharge Data Allergies Allergy/AdvReac Type Severity Reaction Status Date / Time No Known Allergies Allergy Verified 02/03/24 13:13 Consultations 02/03/24 13:37 ED Decision to Admit Stat 02/03/24 15:56 Consult Cardiology Routine 02/04/24 09:13 Consult Pain Management Routine 02/05/24 15:02 Consult Infectious Diseases Routine 02/05/24 15:25 Consult General Surgery Routine 02/06/24 08:27 Consult Anesthesiology Routine Procedures Performed Operation Date: 02/09/24 07:30 Actual Procedures p Mediport Removal(Right) - Tristin Lazo DO Ordered Studies 02/03/24 12:14 US arterial duplex LE BI Stat FINDINGS: Right lower extremity: There are triphasic arterial waveforms in the common femoral artery with velocities measuring up to 87 cm/s. The profunda femoris artery is patent with velocities measuring up to 79 cm/s. There are triphasic waveforms throughout the superficial femoral and popliteal arteries. Velocities in the superficial femoral artery measuring up to 99 cm/s, and velocities in the popliteal artery measure up to 96 cm/s. There is three-vessel runoff to the foot. Velocities within the calf arteries measure up to 78 cm/s. The dorsalis pedis is patent with velocities measuring up to 40 cm/s. Left lower extremity: There are triphasic arterial waveforms in the common femoral artery with velocities measuring up to 115 cm/s. The profunda femoris artery is patent with velocities measuring up to 92 cm/s. There are triphasic waveforms throughout the superficial femoral and popliteal arteries. Velocities in the superficial femoral artery measure up to 92 cm/s and velocities in the popliteal artery measure up to 58 cm/s. There is three-vessel runoff to the foot. Velocities in the calf arteries measure up to 82 cm/s. The dorsalis pedis artery is patent with velocities measuring up to 52 cm/s. IMPRESSION: There is no sonographic evidence of high-grade stenosis or focal vessel cut off seen throughout the arteries of the right or left lower extremity. 02/05/24 00:00 MR lower leg LT wo/w con Routine FINDINGS: There is bony edema in the medial tibial plateau anteriorly. Soft tissue edema is seen without drainable fluid collection. A dressing is again seen in the a nterior leg. IMPRESSION: Focal edema in the anterior aspect of the medial tibial plateau, osteomyelitis cannot be excluded. Otherwise there is soft tissue edema without drainable fluid collection. 02/05/24 08:02 CT abd pelvis IV con only Urgent FINDINGS: Lower chest: Small bilateral pleural effusions are seen with underlying atelectasis. Liver: Focal fatty changes are noted about the falciform ligament. Gallbladder and biliary tree: No calcified gallstones. Normal caliber wall. No intra- or extrahepatic biliary ductal dilation. Pancreas: Unremarkable, no focal lesions. Spleen: Unremarkable. Adrenals: Unremarkable. Kidneys and ureters: Multifocal renal cysts are seen. Bladder: Zuñiga catheter is seen. Reproductive organs: Unremarkable. Bowel: The appendix is normal. Lymph nodes Retroperitoneal: Unremarkable. Pelvic: Unremarkable. Mesenteric: Unremarkable. Peritoneum: Normal. Vessels: Atherosclerotic calcifications are seen. An IVC filter is seen. Abdominal wall: A fat-containing umbilical hernia is seen. There is a left lower abdominal wall hernia containing fat. Bones: Degenerative changes in the visualized spine. Left hip arthroplasty is seen. Healed fractures are seen in the right hip and ribs. IMPRESSION: 1. No acute abnormality to explain abdominal pain. 2. Diverticulosis is seen without diverticulitis. Hospital Course (1) Sepsis: (2) UTI (urinary tract infection): (3) Cellulitis of left lower leg: (4) Elevated troponin: (5) Diarrhea: (6) Hypomagnesemia: (7) Chronic refractory osteomyelitis of ankle: (8) CAD (coronary artery disease): (9) History of pulmonary embolism: (10) S/P IVC filter: (11) Paroxysmal atrial fibrillation: (12) Multiple sclerosis: (13) Neurogenic bladder: (14) Chronic anemia: (15) Rosacea: (16) Breast cancer: Plan Patient is 73-year-old female with PMH HTN, CAD, history NSTEMI, paroxysmal atr ial fibrillation, history of PE, DVT, chronic anticoagulation on Eliquis, MS, neurogenic bladder requiring self catheterization, chronic anemia, rosacea, chronic osteomyelitis right lower extremity, history of breast cancer who presented to ER with complaint of tactile fevers, generalized weakness, diarrhea x 1 day. Sepsis Complicated UTI LLE Cellulitis Sepsis. Possible source UTI, possible LLE cellulitis, chronic R ankle wound In ER T: 36.2 C, P: 102, RR: 16, BP 117/76, 96% on room air. WBC: 19, lactate: 1.8, Procalcitonin: 9 CXR: Cardiomegaly with pulmonary vascular prominence Arterial lower extremity Doppler: There is no sonographic evidence of high-grade stenosis or focal vessel cut off seen throughout the arteries of the right or left lower extremity. In ER given 1 L NSS, cefepime, daptomycin. Reevaluation. Patient awake, alert and oriented x 3. BP 115/75, P: 112, R: 20, 94% on room air. Brisk capillary refill. Lungs clear to auscultation, sinus ta chycardia. Blood culturex1 from 02/02 growing Group B Beta strep, and Enterococcus Blood Cx (Fungal) x2 from 02/02 and 02/03 - also growing yeast/uvaldo Blood cultx (Fungal) from 02/04 - again positive for Uvaldo - repeat fungal cultx ordered Blood cultx from 02/05 - negative for 5 days R ankle wound growing E. faecalis Biofire showing E faecalis + and strep + Urine culture (02/05) - posit. for uvaldo Catheter tip cultx (02/08) negative Cefepime, vancomycin switched to Cefepime with Daptomycin Caspofungin added on 02/04 Bolus with gentle IVF Stool studies, C-diff if recurrent diarrhea Wound nurse consult ID consulted, appreciate recs -recommended transitioning current regimen to Ampicillin and po fluconazole -remove port (port now removed - 02/08) -baclofen pump can remain Bacteremia Fungemia Blood culture from 02/02 growing Group B Beta strep, Enterococcus faecalis Blood Cx (Fungal) x2 from 02/02 and 02/03 - also growing yeast/uvaldo Blood cultx (Fungal) from 02/04 - again positive for Uvaldo - repeat fungal cultx ordered -> ID contacted and discussed with, recommendations obtained R ankle wound growing E. faecalis Urine culture (02/05) - posit. for uvaldo Catheter tip cultx (02/08) negative Pt with indwelling R IJ port, previously placed for osteomyelitis treatment for RIGHT ankle in Sep 2023 , will likely need removal -General surgery consulted, appreciate recs - s/p removal of port on 02/08 Pt also with indwelling baclofen pump -Pain management previously consulted, appreciate recs for potential removal -pain pump can remain per ID Cardiology consulted, appreciate recs -BALA on 02/06, no noted vegetations Previously on IV Cefepime, Daptomycin and Caspofungin ID consulted-appreciate recs transition to IV Ampicillin and po Fluconazole 02/12 Contacted and updated ID - discussed recommendations - Recommendations: - Continue 400 mg po qd for fungemia - Continue ampicillin 2 gm iv q4 hours for both group B Strep and Enterococcus - Anticipate total 2 weeks of ampicillin iv therapy from 02/06/24 to 02/19/24 - Anticipate total 2 weeks of fluconazole from port removal, ending on 02/22/24 Septic Shock-Resolved Pt with persistently low blood pressure in setting of above Receiving cautious fluid boluses On stress IV hydrocortisone 50mg q6h - taper off Midodrine 5mg TID started, held on 02/05 due to high blood pressures - now stopped Continue to monitor Elevated troponin hs-Troponin:1140-->1375--->1833 CK: 369 Initial EKG sinus rhythm, rate 99, Q waves septal leads repeat EKG sinus tachycardia, rate 116, Q waves septal leads. Q waves septal leads seen in prior EKGs per chart review Patient without chest pain, shortness of breath, dizziness, palpitations, dizziness Likely Type II NSTEMI Echo with EF> 70%, Grade I diastolic dysfunction, mild aortic stenosis Continue metoprolol, atorvastatin Continue Eliquis -> iv heparin as port to be removed - plan to go back on eliquis Cardiology consulted appreciate recs -no procedure -cardiac MRI -continue metoprolol - metoprolol succinate 50 bid, and added losartan 25 Diarrhea 2 episodes diarrhea day before admission Denies abdominal pain. No further diarrhea If recurrent diarrhea plan to obtain stool culture, C. difficile CT abdomen pelvis with no acute pathology Electrolyte Abnormalities: -Hypomagnesemia: Magnesium 1.5 on admission. Replete and monitor Chronic refractory osteomyelitis of ankle History of chronic osteomyelitis right ankle Right ankle x-ray: No evidence osteomyelitis Chronic right ankle ulcer R ankle wound growing E faecalis Wound nurse consult Transitioned to Ampicillin Elevated CK Rhabdo Ck elevated at 239 IV hydration as above CAD (coronary artery disease) History nonocclusive CAD. History NSTEMI Workup as above Continue metoprolol tartrate with holding parameters, statin History of pulmonary embolism S/P IVC filter History of PE. IVC filter in place. History DVT left lower extremity in 09/2023. Eliquis on hold for upcoming procedures, held on 02/05 (last dose in AM), transitioned to IV heparin - switched back to Eliquis on 02/09 Patient denies any missed doses Paroxysmal atrial fibrillation Anticoagulated on Eliquis Current sinus tachycardia Eliquis on hold for upcoming procedures, held on 02/05 (last dose in AM), transitioned to IV heparin, now back on Eliquis as of 02/09 Continue metoprolol tartrate, IV heparin as above Metoprolol dose increased overnight for SVT, as above Multiple sclerosis Neurogenic bladder Self catheterization at home Has baclofen pump On Aubagio, prednisone, tizanidine Zuñiga catheter Pain management consult in setting of need for MRI, consider po baclofen dose around imaging Chronic anemia Hgb: 9.6. Baseline in ' Monitor H&H Rosacea On chronic doxycycline. Will hold doxycycline for now as on above antibiotics Breast cancer History left breast cancer s/p surgery, radiation Total Time Total Time Spent Total Time Spent (In Minutes): 40 Discharge Plan Discharge Items Patient Disposition: Transfer Inpatient Rehab Fac Reason For Visit: DIARRHEA Discharge Diagnosis: Bacteremia, Fungemia Chronic osteomyelitis R IJ port removed on 02/09/2024 Activity: Per Instructions section Non-emergency contact: Primary Care Provider and Specialist Call non-emergency contact if: you have any medication questions and your symptoms worsen Follow-up/Referrals: Simi Hernandez CRNP [Primary Care Provider] - Diet: Heart Healthy Addtl Attending Provider Instructions: Follow up with primary care physician and infectious disease doctor. Continue fluconazole and ampicillin as prescribed - Per infectious disease doctor - - Continue 400 mg po qd for fungemia - Continue ampicillin 2 gm iv q4 hours for both group B Strep and Enterococcus - Anticipate total 2 weeks of ampicillin iv therapy from 02/06/24 to 02/19/24 - Anticipate total 2 weeks of fluconazole from port removal, ending on 02/22/24 Per cardiology - take metoprolol succinate 50 mg bid and losartan 25 mg daily. Pending Studies at Discharge: Yes Studies:: final results fungal cultx Stand-Alone Forms: My [facility] Skilled Items Patient informed of condition?: Yes DNR: No Discharge Level of Care: Acute rehab Communicable Disease: No Discharge Prognosis: Stable Lines: Peripheral IV Medications and DC Order Prescriptions: New fluconazole [Diflucan] 100 mg Tablet 400 mg PO DAILY 8 Days Qty: 32 0RF metoprolol succinate 50 mg Tablet Extended Release 24 Hr 50 mg PO BID 30 Days Qty: 60 0RF losartan 25 mg Tablet 25 mg PO QAM 30 Days Qty: 30 0RF sennosides [Senokot] 8.6 mg Tablet 8.6 mg PO QAM Qty: 30 0RF polyethylene glycol 3350 [Miralax] 17 gram Powder In Packet 17 g PO DAILY PRN (Reason: constipation) Qty: 14 0RF Continued prednisone 10 mg tablet 10 mg PO QAM oxybutynin chloride 15 mg tablet extended release 24hr 15 mg PO QAM cholecalciferol (vitamin D3) 1,000 unit capsule 1,000 units PO QAM escitalopram oxalate [Lexapro] 20 mg tablet 20 mg PO QAM tizanidine [Zanaflex] 4 mg tablet 4 mg PO QID teriflunomide [Aubagio] 14 mg tablet 14 mg PO QPM atorvastatin [Lipitor] 20 mg tablet 20 mg PO QAM multivitamin Tablet 1 tab PO DAILY melatonin 3 mg Tablet 3 mg PO HS omeprazole 40 mg capsule,delayed release(DR/EC) 40 mg PO QAM Baclofen Pump 0 mg SC DIRECTED Rx Instructions: continuous. FAMILY UNSURE OF MAX DOSE BUT IT IS A CONTINOUS PUMP. Eliquis 5 mg tablet 5 mg PO BID Held doxycycline hyclate 50 mg capsule 50 mg PO Q2D Hold Instructions: Resume on 02/22/24. Discontinued metoprolol tartrate 25 mg tablet 25 mg PO BID Discharge Orders: Discharge Order (Routine); Ordered 02/14/24 Ordered By: J Carlos Johnson Admission Data Admit Date/Time: 02/03/24 14:09 Attending Provider: J Carlos Johnson Admit Provider: Gema Quintanilla Primary Care Provider: Simi Hernandez Other Providers: [facility]; [facility]; Gema Quintanilla; Brett Barrera; Erasmo Moore; Isma Jacob; Dmitri Morales I.; Fran Porter II; Abi Celestin; Morales Childs; José Miguel Noble; Harriet Sierra; Bhavya Russell; Tristin Lazo; Haider Vidal
== END 2024-02-14 17:55 | DRG 871 ==
LOC: ED 09:57 → 2S 14:09 → SUATTDRO 14:09 → 2S 14:45

== ENCOUNTER 2024-04-14 18:36 | Inpatient (IN) ==
--- NOTE | 2024-04-14 18:51 | Emergency Department Note ---
History of Present Illness General Chief complaint: Knee Injury/Pain Stated complaint: LT KNEE SWOLLEN,WARM AND RED Time Seen by Provider: 04/14/24 18:50 History of Present Illness Maximum Pain Intensity: 8 NAME: NADEEN ANNE AGE: 73 SEX: F : 1950 ARRIVES VIA: Walk-In INFORMANT: Patient ED PROVIDER(S): KEVIN Cristina, Jag Ontiveros MD The patient is a pleasant 73-year-old female who arrives to the emergency department with her daughter for evaluation of left knee pain and swelling. She reports a history of multiple sclerosis, as well as chronic osteomyelitis, bacteremia, fungal EMEA, and cellulitis. She states a history of DVT and is currently taking Eliquis twice daily for prophylaxis. She reports last night noticing left knee swelling, warmth, and pain. She is able to fully extend and flex the knee, however painful. She states no injury occurred, however there is a hardened area on the anterior patella that appears to look like a healing wound. The patient uses a walker for ambulation, however most recently has been mostly wheelchair-bound due to progressing MS. She denies fever, chest pain, shortness of breath, distal extremity pain, loss of sensation. Distal pulses intact via Doppler. Home Medications Medication Instructions Recorded Confirmed Type cholecalciferol (vitamin D3) 25 2,000 units PO QAM 09/18/18 04/14/24 History mcg (1,000 unit) capsule escitalopram oxalate 20 mg tablet 20 mg PO QAM 09/18/18 04/14/24 History (Lexapro) oxybutynin chloride 15 mg 15 mg PO QAM 09/18/18 04/14/24 History tablet,extended release 24 hr prednisone 10 mg tablet 10 mg PO QAM 09/18/18 04/14/24 History omeprazole 40 mg capsule,delayed 40 mg PO QAM 07/06/21 04/14/24 History release teriflunomide 14 mg tablet 14 mg PO QPM 05/13/22 04/14/24 History (Aubagio) doxycycline hyclate 50 mg capsule 50 mg PO Q2D Rosacea 08/10/22 04/14/24 History melatonin 3 mg tablet 3 mg PO HS 03/05/23 04/14/24 History multivitamin 1 tab PO DAILY 03/05/23 04/14/24 History atorvastatin 20 mg tablet (Lipitor) 20 mg PO QAM 08/04/23 04/14/24 History Baclofen Pump 0 mg SC DIRECTED 08/05/23 04/14/24 History tizanidine 4 mg tablet (Zanaflex) 4 mg PO Q6 Muscle Spasm 12/15/23 04/14/24 History apixaban 5 mg tablet (Eliquis) 5 mg PO BID 02/03/24 04/14/24 History sennosides 8.6 mg tablet (Senokot) 8.6 mg PO QAM #30 tabs 02/14/24 04/14/24 Rx magnesium oxide 400 mg (241.3 mg 400 mg PO AMHS 04/14/24 04/14/24 History magnesium) tablet metoprolol succinate 50 mg 50 mg PO Q12 04/14/24 04/14/24 History tablet,extended release 24 hr Allergies Allergy/AdvReac Type Severity Reaction Status Date / Time No Known Allergies Allergy Verified 03/26/24 13:24 Past Med/Surg History Problem List Knee pain (Acute) Septic prepatellar bursitis (Acute) Paroxysmal atrial fibrillation Wound infection CLABSI (central line-associated bloodstream infection) Bacteremia Fungemia Myocardial strain Tachycardia Rosacea Hypomagnesemia Diarrhea Acute deep vein thrombosis of left lower extremity (Chronic) Traumatic open wound of right lower leg (Acute) Catheter-associated urinary tract infection Sepsis (Acute) Leg wound, right (Acute) Skin tear of left upper extremity (Acute) Chronic refractory osteomyelitis of ankle (Acute) Surgical wound, non healing (Acute) Osteomyelitis of ankle (Acute) Sepsis (Acute) Cellulitis of left lower leg (Acute) Chronic ulcer of right foot (Acute) HX: breast cancer Left breast cancer with surgery and chemo/radiation-left arm restriction Chronic anemia Paroxysmal atrial fibrillation Lower extremity edema (Chronic) Traumatic open wound of left lower leg with delayed healing (Acute) Ulcer of right ankle (Acute) Paroxysmal atrial fibrillation with RVR Hypotension Acute UTI (Acute) UTI (urinary tract infection) (Acute) Status post reverse total replacement of right shoulder (~04/2022) Encounter for pre-operative examination Closed right scapular fracture Sepsis Hypertension Multiple sclerosis Elevated troponin (Acute) Sepsis (Acute) Elevated troponin I level (Acute) Hypotension (Acute) Elevated lactic acid level (Acute) GERD (gastroesophageal reflux disease) controlled, stable per pt CAD (coronary artery disease) Non-obstructive per 06/2021 cardiac cath History of supraventricular tachycardia History of pulmonary embolism ~ 6 yrs ago, IVC filter still in place History of DVT (deep vein thrombosis) ~6 yrs ago Multiple sclerosis (Chronic) Follows with Dr. Walker/[facility] Stable Osteoporosis (Chronic) Neurogenic bladder (Chronic) SELF CATH 2-3 X'S PER DAY *RECENT HOSPITALIZATION FOR UTI Raynaud disease (Chronic) Presence of intrathecal pump (Chronic) baclofen pump in place--status post revision/replacement 08/10/2022 S/P IVC filter (Chronic) H/O left mastectomy (Chronic) with lymph node removal>LEFT ARM RESTRICTION History of open reduction and internal fixation (ORIF) procedure (Chronic) "left hip" S/P partial hysterectomy (Chronic) History of appendectomy (Chronic) Medical History Fever History of recent hospitalization 09/2022 [facility] - sepsis History of blood transfusion Limb alert care status left arm Osteoarthritis of right shoulder History of GI bleed Upper GIB (2019) felt 2/2 NSAID use History of non-ST elevation myocardial infarction (NSTEMI) 06/2021 (had heart cath, no stents) Hx of gastric ulcer 02/2021 Anemia Hypertension controlled, stable per pt Surgical History History of removal of Port-a-Cath (02/09/24) Mediport Removal(Right) - Tristin Lazo DO Port-A-Cath in place (09/29/23) A-Port Insertion, right internal jugular(Right) - Tristin Lazo DO S/p reverse total shoulder arthroplasty right: 05/25/22 LMA#4. No postop issues per anesthesia progress note. History of cardiac cath Cardiac cath (07/06/21; [facility]) > Right dominant coronary system. No evidence of aortic stenosis. Normal left ventricular filling pressures. Nonobstructive disease involving the ostial LAD. No evidence of acute coronary syndrome. Approximately 50% ostial stenosis of the LAD. There was some very mild disease at the ostium of the left circumflex. Recommendations: Medical management. 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5 C 37.4 C Temperature Source Temporal Artery Scan Oral Pulse Rate 58 L 107 H Pulse Rate [Right Finger] 100 H Pulse Rate from SpO2 Sensor 108 H Pulse Rhythm [Right Finger] Regular Pulse Strength [Right Finger] Normal Respiratory Rate 16 16 22 Respiratory Effort / Characteristics Respiratory Depth Normal Respiratory Pattern Blood Pressure 129/78 123/94 Blood Pressure [Right Arm] 132/81 Blood Pressure Mean 95 103 Blood Pressure Mean [Right Arm] 98 Blood Pressure Position [Right Arm] Lying Pulse Oximetry 98 97 94 Oxygen Delivery Method Room Air Room Air Room Air Sepsis Recent Fever Within 48 Hours No Sepsis New/Unexplained Change in Mental Status N/A Sepsis Action Taken by Nursing No Action Required 04/14/24 23:02 04/14/24 23:31 04/15/24 00:00 Temperature Temperature Source Pulse Rate 106 H 110 H 110 H Pulse Rate [Right Finger] Pulse Rate from SpO2 Sensor 110 H 111 H Pulse Rhythm [Right Finger] Pulse Strength [Right Finger] Respiratory Rate 20 21 Respiratory Effort / Characteristics Respiratory Depth Respiratory Pattern Blood Pressure 139/84 141/82 H Blood Pressure [Right Arm] Blood Pressure Mean 102 101 Blood Pressure Mean [Right Arm] Blood Pressure Position [Right Arm] Pulse Oximetry 98 97 Oxygen Delivery Method Room Air Room Air Sepsis Recent Fever Within 48 Hours Sepsis New/Unexplained Change in Mental Status Sepsis Action Taken by Nursing 04/15/24 00:00 04/15/24 00:00 Temperature 37.5 C Temperature Source Oral Pulse Rate Pulse Rate [Right Finger] 101 H Pulse Rate from SpO2 Sensor Pulse Rhythm [Right Finger] Pulse Strength [Right Finger] Respiratory Rate 20 Respiratory Effort / Characteristics Non-Labored Spontaneous Respiratory Depth Normal Respiratory Pattern Regular Blood Pressure Blood Pressure [Right Arm] 150/103 H Blood Pressure Mean Blood Pressure Mean [Right Arm] 118 Blood Pressure Position [Right Arm] Pulse Oximetry 93 Oxygen Delivery Method Room Air Room Air Sepsis Recent Fever Within 48 Hours Sepsis New/Unexplained Change in Mental Status Sepsis Action Taken by Nursing VITALS: Vitals are noted on the nurse's note and reviewed by myself. Vital signs stable. GENERAL: 73-year-old female, in no acute distress, nondiaphoretic. SKIN: Left knee erythema, edema, fluctuance present. Left lower extremity cellulitis, 3+ pitting edema. HEAD: Normocephalic atraumatic. HEART: Regular rate and rhythm without murmurs gallops or rubs. LUNGS: Clear to auscultation bilaterally without wheezes, rales or rhonchi. No retractions or accessory muscle use. ABDOMEN: Positive bowel sounds x 4. Soft, nontender, without masses or organomegaly. Thomas sign negative. No guarding or rebound tenderness. MUSCULOSKELETAL: Muscle atrophy present throughout, full range of motion left lower extremity, capillary refill <3, pulses present. NEURO: Patient was alert and oriented to person place and time. No focal neurological deficits. Course Administered Medications Acetaminophen (Acetaminophen 325 Mg Tab) 650 mg PO Q4H PRN PRN Reason: Pain or Fever Stop: 05/15/24 02:04 Last Admin: 04/15/24 04:02 Dose: 650 mg Documented By: EMMETT Apixaban (Apixaban 5 Mg Tablet) 5 mg PO BID MICHELLE Stop: 05/15/24 08:59 Last Admin: 04/16/24 08:08 Dose: 5 mg Documented By: Admin: 04/15/24 20:12 Dose: 5 mg Documented By: Admin: 04/15/24 08:33 Dose: 5 mg Documented By: EDY Doxycycline Hyclate (Doxycycline Hyclate 50 Mg Cap) 50 mg PO Q48H MICHELLE Stop: 05/16/24 08:59 Last Admin: 04/16/24 08:08 Dose: 50 mg Documented By: RICHARD Escitalopram Oxalate (Escitalopram Oxalate 20 Mg Tab) 20 mg PO QAM [facility] Stop: 05/15/24 08:59 Last Admin: 04/16/24 08:08 Dose: 20 mg Documented By: Admin: 04/15/24 08:32 Dose: 20 mg Documented By: EDY Daptomycin 225 mg/ Syringe 4.5 mls @ 2.25 mls/min IV Q24H [facility]; Protocol Stop: 04/22/24 20:59 Last Admin: 04/15/24 20:19 Dose: 2.25 mls/min Documented By: TONI Cefepime HCl 2,000 mg/ Syringe 20 mls @ 5 mls/min IV Q12H [facility]; Protocol Stop: 04/22/24 15:59 Last Admin: 04/16/24 04:00 Dose: 5 mls/min Documented By: Admin: 04/15/24 17:20 Dose: 5 mls/min Documented By: EDY Melatonin (Melatonin 3 Mg Tab) 3 mg PO HS PRN PRN Reason: Sleep Stop: 05/15/24 01:16 Last Admin: 04/15/24 02:48 Dose: 3 mg Documented By: EMMETT Melatonin (Melatonin 3 Mg Tab) 3 mg PO HS MICHELLE Stop: 05/15/24 20:59 Last Admin: 04/15/24 20:17 Dose: 3 mg Documented By: TONI Multivitamins (Multivitamin Tab) 1 tab PO DAILY MICHELLE Stop: 05/15/24 08:59 Last Admin: 04/16/24 08:08 Dose: 1 tab Documented By: Admin: 04/15/24 08:33 Dose: 1 tab Documented By: EDY Oxybutynin Chloride (Oxybutynin Chloride Xl 5 Mg Tabcr) 15 mg PO QAM [facility] Stop: 05/15/24 08:59 Last Admin: 04/16/24 08:08 Dose: 15 mg Documented By: Admin: 04/15/24 08:33 Dose: 15 mg Documented By: EDY Pantoprazole Sodium (Pantoprazole 40 Mg Tab) 40 mg PO [facility] Stop: 05/15/24 08:59 Last Admin: 04/16/24 08:09 Dose: 40 mg Documented By: Admin: 04/15/24 08:33 Dose: 40 mg Documented By: EDY Prednisone (Prednisone 10 Mg Tablet) 10 mg PO [facility] Stop: 05/16/24 08:59 Last Admin: 04/16/24 08:09 Dose: 10 mg Documented By: RICHARD Sennosides (Senna 8.6 Mg Tab) 8.6 mg PO [facility] Stop: 05/15/24 08:59 Last Admin: 04/16/24 08:12 Dose: Not Given Documented By: Admin: 04/15/24 08:33 Dose: 8.6 mg Documented By: EDY Tizanidine HCl (Tizanidine Hcl 4 Mg Tablet) 4 mg PO Q6 [facility] Stop: 05/15/24 02:04 Last Admin: 04/16/24 12:19 Dose: 4 mg Documented By: Admin: 04/16/24 06:12 Dose: 4 mg Documented By: Admin: 04/16/24 00:14 Dose: Not Given Documented By: Admin: 04/15/24 17:20 Dose: 4 mg Documented By: Admin: 04/15/24 12:45 Dose: 4 mg Documented By: Admin: 04/15/24 08:31 Dose: Not Given Documented By: Admin: 04/15/24 02:48 Dose: 4 mg Documented By: NRR Discontinued Medications Apixaban (Apixaban 5 Mg Tablet) 5 mg PO NOW STA Stop: 04/15/24 00:00 Last Admin: 04/15/24 00:16 Dose: 5 mg Documented By: TRENT Piperacillin Sod/Tazobactam Sod (Zosyn) 4.5 gm in 100 mls @ 200 mls/hr IV NOW ONE Stop: 04/14/24 20:44 Last Infusion: 04/14/24 23:06 Dose: Infused Documented By: Admin: 04/14/24 21:45 Dose: 200 mls/hr Documented By: SERGIO Daptomycin 325 mg/ Syringe 6.5 mls @ 3.25 mls/min IV Q24H [facility]; Protocol Stop: 04/16/24 20:14 Last Admin: 04/14/24 21:45 Dose: 3.25 mls/min Documented By: SERGIO Magnesium Sulfate/Dextrose (Magnesium Sulfate / D5w) 1 gm in 100 mls @ 50 mls/hr IV ONE ONE Stop: 04/15/24 01:14 Last Infusion: 04/15/24 01:19 Dose: Infused Documented By: Admin: 04/14/24 23:16 Dose: 50 mls/hr Documented By: TRENT Albumin Human (Albumin 25%) 25 gm in 100 mls @ 50 mls/hr IV ONE ONE Stop: 04/15/24 01:58 Last Infusion: 04/15/24 03:57 Dose: Infused Documented By: Admin: 04/15/24 01:22 Dose: 50 mls/hr Documented By: TRENT Cefepime HCl 2,000 mg/ Syringe 20 mls @ 5 mls/min IV Q8H [facility]; Protocol Stop: 04/22/24 03:59 Last Admin: 04/15/24 04:03 Dose: 5 mls/min Documented By: EMMETT Albumin Human (Albumin 25%) 25 gm in 100 mls @ 50 mls/hr IV ONE ONE Stop: 04/15/24 07:29 Last Infusion: 04/15/24 08:37 Dose: Infused Documented By: Admin: 04/15/24 06:37 Dose: 50 mls/hr Documented By: DYLAN Dexamethasone 4 mg/ Syringe 1 mls @ 1 mls/min IV NOW STA Stop: 04/15/24 07:18 Last Admin: 04/15/24 10:42 Dose: 1 mls/min Documented By: EDY Albumin Human (Albumin 25%) 25 gm in 100 mls @ 50 mls/hr IV ONE ONE Stop: 04/15/24 22:13 Last Infusion: 04/15/24 23:03 Dose: Infused Documented By: Admin: 04/15/24 21:03 Dose: 50 mls/hr Documented By: TONI Dexamethasone 4 mg/ Syringe 1 mls @ 1 mls/min IV NOW ONE Stop: 04/15/24 20:31 Last Admin: 04/15/24 21:04 Dose: 1 mls/min Documented By: TONI Magnesium Sulfate/Dextrose (Magnesium Sulfate / D5w) 1 gm in 100 mls @ 50 mls/hr IV ONE ONE Stop: 04/16/24 06:15 Last Infusion: 04/16/24 06:40 Dose: Infused Documented By: Admin: 04/16/24 04:36 Dose: 50 mls/hr Documented By: TONI Albumin Human (Albumin 25%) 25 gm in 100 mls @ 50 mls/hr IV ONE ONE Stop: 04/16/24 07:47 Last Infusion: 04/16/24 08:42 Dose: Infused Documented By: Admin: 04/16/24 06:36 Dose: 50 mls/hr Documented By: TONI Metoprolol Succinate (Metoprolol Succ 50mg Ext Rel Tab) 50 mg PO NOW STA Stop: 04/14/24 23:31 Last Admin: 04/15/24 00:16 Dose: 50 mg Documented By: TRENT Metoprolol Succinate (Metoprolol Succ 25mg Ext Rel Tab) 25 mg PO Q12 MICHELLE Stop: 05/15/24 08:59 Last Admin: 04/15/24 20:11 Dose: Not Given Documented By: Admin: 04/15/24 08:33 Dose: Not Given Documented By: EDY Metoprolol Succinate (Metoprolol Succ 25mg Ext Rel Tab) 25 mg PO NOW STA Stop: 04/16/24 04:15 Last Admin: 04/16/24 04:36 Dose: 25 mg Documented By: TONI Miscellaneous (Patient's Height &/Or Weight Needed) 1 each N/A Q2H MICHELLE Stop: 05/14/24 18:38 Last Admin: 04/15/24 00:16 Dose: Not Given Documented By: Admin: 04/15/24 00:16 Dose: Not Given Documented By: Admin: 04/15/24 00:16 Dose: 1 each Documented By: TRENT Medical Decision Making Differential Diagnosis Cellulitis, abscess, MRSA infection, DVT, necrotizing fasciitis, dermatitis, drug eruption, allergic reaction, prepatellar bursitis, septic joint, as well as other pathologies. Medical Records Attestation: I reviewed the patient's medical records. Home Medications Current Medication List: was personally reviewed by me Laboratory Data Attestation: I reviewed the patient's lab results. Leukocytosis 15, hemoglobin 9.7, hematocrit 31.4, no significant electrolyte abnormalities, ESR 70, CRP 5.53. 04/16/24 04:33 04/16/24 04:33 Lab Results 04/14/24 04/14/24 Range/Units 19:50 20:55 WBC 15.00 H (4.8-10.8) K/ul RBC 3.57 L (4.20-5.40) M/uL Hgb 9.7 L (12.0-16.0) g/dl Hct 31.4 L (37.0-47.0) % MCV 88.0 (80.0-100.0) fL MCH 27.2 (25.0-34.0) pg MCHC 30.9 L (32.0-36.0) g/dL RDW Std Deviation 62.3 H (36.4-46.3) fL RDW Coeff of Tiffanie 19.1 H (11.5-14.5) % Plt Count 304 (130-400) K/uL MPV 10.8 (9.4-12.4) fL Immature Gran % (Auto) 0.5 % Neut % (Auto) 86.5 % Lymph % (Auto) 4.9 % [place] % (Auto) 7.8 % Eos % (Auto) 0.0 % Baso % (Auto) 0.3 % Neut # (Auto) 12.96 H (1.40-6.50) K/uL Lymph # (Auto) 0.74 L (1.20-3.40) K/uL [place] # (Auto) 1.17 H (0.11-0.59) K/uL Eos # (Auto) 0.00 (0.00-0.50) K/uL Baso # (Auto) 0.05 (0.00-0.20) K/uL Immature Gran # (Auto) 0.08 (0.01-0.20) K/uL ESR 70 H (0-30) mm/hr PT 11.3 (9.0-12.0) Seconds INR 1.0 (0.9-1.1) APTT 27 (21-31) Seconds PTT Ratio 1.0 Sodium 137 (136-145) mmol/L Potassium 4.0 (3.5-5.1) mmol/L Chloride 102 (98-107) mmol/L Carbon Dioxide 27 (21-32) mmol/L Anion Gap 8 (3-11) BUN 29 H (6-23) mg/dl Creatinine 0.83 (0.6-1.2) mg/dl Est Cr Clr Drug Dosing Not Reportable Est GFR ( Amer) 82.2 ml/min Est GFR (Non-Af Amer) 70.9 ml/min BUN/Creatinine Ratio 34.9 H (10-20) Glucose 126 H (70-99(Fasting)) mg/dl Estimat Average Glucose 120 mg/dl Hemoglobin A1c 5.8 H (4.5-5.6) % Lactate 2.0 (0.4-2.0) mmol/L Uric Acid 4.0 (2.6-7.2) mg/dl Calcium 8.9 (8.6-10.3) mg/dl Magnesium 1.6 L (1.7-2.4) mg/dl Total Bilirubin 0.4 (0.2-1.0) mg/dl AST 24 (13-39) U/L ALT 17 (7-52) U/L Alkaline Phosphatase 68 (34-104) U/L C-Reactive Protein 5.53 H (0-0.5) mg/dl Total Protein 6.7 (6.0-8.3) gm/dl Albumin 3.7 (3.4-5.0) gm/dl Globulin 3.0 (2.5-4.0) gm/dl Albumin/Globulin Ratio 1.2 (0.9-2) Procalcitonin 0.12 (0-0.5) ng/ml Imaging Data Attestation: I personally reviewed and interpreted this imaging study as follows: My Impression: Initial x-ray interpretation per myself shows no acute fracture, joint effusion present. Will await formal radiology report. Radiologist's Impression: Knee X-Ray 04/14/24 19:15 XR knee LT 1 or 2V routine HISTORY: 73 years-old Female edema/pain acute left knee pain with soft tissue swelling COMPARISON: 08/30/2014 TECHNIQUE: 3 views of left knee FINDINGS: Genu valgum. Severe lateral with moderate medial and patellofemoral compartment osteoarthritis. Chondrocalcinosis. Numerous subcentimeter loose bodies of the posterior joint space. Arterial calcifications. Small moderate joint effusion containing calcifications. Moderate prepatellar soft tissue swelling. IMPRESSION: 1. Joint effusion without acute fracture or dislocation. 2. Genu valgum with severe lateral compartment osteoarthritis. 3. Intra-articular loose bodies. 4. Moderate prepatellar soft tissue swelling. ACT 112: Negative or not required by law. The above report was generated using voice recognition software. It may contain grammatical, syntax or spelling errors. Electronically signed by: Nasir Mccauley M.D. 04/14/2024 7:34 PM Blood Pressure Blood Pressure Findings: Elevated blood pressure Blood Pressure Disposition: elevated BP felt to be situational MDM Narrative The patient is a pleasant 73-year-old female who arrives to the emergency department with her daughter for the above-stated complaint. Upon examination the patient has significant erythema/edema and fluctuance present of the right anterior knee consistent with a prepatellar bursitis. She also has a worsening left lower extremity cellulitis from her most recent visit in January of this year. A saline lock was established, CBC, CMP, ESR, CRP, blood cultures, procalcitonin, and lactate were obtained. X-ray imaging of the left knee was obtained which per my initial interpretation shows no acute fracture, however there is soft tissue edema, and a joint effusion present. CBC shows leukocytosis of 15, CMP is reassuring, ESR is elevated at 70, CRP elevated at 5.53, procalcitonin negative, lactate 2.0. Due to the patient's history of chronic osteomyelitis, sepsis, bacteremia, fungemia I do believe the patient needs admission for IV antibiotic treatment. I did speak with Dr. Morales from orthopedic surgery, who agreed to evaluate the patient in the emergency department. Dr. Morales was able to perform a tap on the left knee to evaluate for infection. I did order the aerobic/anaerobic and Gram stain for the fluid, as well as a cell count which showed an elevation of white blood cells at 7852. The patient was started on IV Zosyn as well as daptomycin. Case management was contacted to assist with admission process. The patient was accepted by Dr. Jacob from [facility] group. Please refer to Dr. Jacob's documentation for further patient care. Please also refer to Dr. Morales's documentation for assessment. The patient's case was discussed with Dr. Ontiveros, who agreed with my evaluation and treatment plan. Impression & Plan Cellulitis of left lower leg, Knee pain, Septic prepatellar bursitis Discharge Plan Visit Data Chief Complaint: Knee Injury/Pain Stated Complaint: LT KNEE SWOLLEN,WARM AND RED ED Provider: Jag Ontiveros ED Midlevel Provider: Brandee Bustamante Discharge Problem: Cellulitis of left lower leg, Knee pain, Septic prepatellar bursitis Patient Disposition: Admitted As Inpatient Discharge Instructions Interventions: ED Discharge Assessment Last Done: 04/15/24 01:33 Addendum April 16, 2024 15:27 I was consulted by the Advanced Practice Provider and was substantively involved in the patient's visit.This includes aspects of the HPI, MDM, diagnostic interpretations, and disposition/plan. I discussed the case with the ALFREDO, examined the patient, and agree with the findings and plan as documented in ALFREDO Bustamante's note.
--- NOTE | 2024-04-14 19:36 | XRay Report ---
XR knee LT 1 or 2V routine HISTORY: 73 years-old Female edema/pain acute left knee pain with soft tissue swelling COMPARISON: 08/30/2014 TECHNIQUE: 3 views of left knee FINDINGS: Genu valgum. Severe lateral with moderate medial and patellofemoral compartment osteoarthritis. Chond rocalcinosis. Numerous subcentimeter loose bodies of the posterior joint space. Arterial calcificatio ns. Small moderate joint effusion containing calcifications. Moderate prepatellar soft tissue swellin g. IMPRESSION: 1. Joint effusion without acute fracture or dislocation. 2. Genu valgum with severe lateral compartment osteoarthritis. 3. Intra-articular loose bodies. 4. Moderate prepatellar soft tissue swelling. ACT 112: Negative or not required by law. The above report was generated using voice recognition software. It may contain grammatical, syntax o r spelling errors. Electronically signed by: Nasir Mccauley M.D. 04/14/2024 7:34 PM
[2024-04-14 20:10] LABS: Basophils # (auto) 0.05 K/uL (0.00-0.20); Basophils % (auto) 0.3 %; Hematocrit (blood only) 31.4 % (37.0-47.0); Hemoglobin 9.7 g/dl (12.0-16.0); Immature Granulocytes # (auto) 0.08 K/uL (0.01-0.20); Immature Granulocytes % (auto) 0.5 %; Lymphocytes # (auto) 0.74 K/uL (1.20-3.40); Lymphocytes % (auto) 4.9 %; Mean Corpuscular Hemoglobin 27.2 pg (25.0-34.0); Mean Corpuscular Hgb Conc 30.9 g/dL (32.0-36.0); Mean Platelet Volume 10.8 fL (9.4-12.4); Monocytes # (auto) 1.17 K/uL (0.11-0.59); Monocytes % (auto) 7.8 %; Neutrophils # (auto) 12.96 K/uL (1.40-6.50); Neutrophils % (auto) 86.5 %; Platelet Count 304 K/uL (130-400); RDW Coefficient of Variation 19.1 % (11.5-14.5); RDW Standard Deviation 62.3 fL (36.4-46.3); Red Blood Count 3.57 M/uL (4.20-5.40)
[2024-04-14 20:26] LABS: Alanine Aminotransferase 17 U/L (7-52); Albumin Globulin Ratio 1.2 (0.9-2); Albumin Level 3.7 gm/dl (3.4-5.0); Alkaline Phosphatase 68 U/L (34-104); Anion Gap 8 (3-11); Aspartate Aminotransferase 24 U/L (13-39); BUN Creatinine Ratio 34.9 (10-20); Bilirubin,Total 0.4 mg/dl (0.2-1.0); Blood Urea Nitrogen 29 mg/dl (6-23); Calcium 8.9 mg/dl (8.6-10.3); Carbon Dioxide 27 mmol/L (21-32); Chloride 102 mmol/L (98-107); Est GFR (African American) 82.2 ml/min; Est GFR (Non-African American) 70.9 ml/min; Glucose 126 mg/dl (70-99(Fasting)); Sodium 137 mmol/L (136-145); Total Protein 6.7 gm/dl (6.0-8.3)
[2024-04-14 21:03] LABS: Partial Thromboplastin Time 27 Seconds (21-31); Prothrombin Time 11.3 Seconds (9.0-12.0)
[2024-04-14 21:18] LABS: Magnesium 1.6 mg/dl (1.7-2.4)
[2024-04-14] MEDS: PIPERACILLIN/TAZOBACTAM 4.5 GM/100 ML BAG IV ONE (21:45)
[2024-04-14] MEDS: DAPTOmycin 325 MG in SYRINGE 0 ML IV SCH (21:45)
--- NOTE | 2024-04-14 21:48 | Orthopedic Consultation ---
Date of Service April 14, 2024 Assessment & Plan (1) Septic prepatellar bursitis: 73-year-old female with underlying MS and multiple medical comorbidities with a 1 day history of knee pain discomfort swelling consistent with a septic prepatellar bursitis. There is no signs of underlying knee joint infection. Plan: I aspirated prepatellar bursa today. Will send off for stat Gram stain aerobic anaerobic culture. Will send off for cell count with differential as well. Recommend she be admitted for IV antibiotics. This may need serial drainage but most likely will do well with IV antibiotics. Unlikely to need surgical treatment. Will continue to follow her. Any orthopedic questions can be direct me [phone]. Procedure: The patient's knee was prepped with alcohol. I aspirated her prepatellar bursa for about 5 cc of slightly inflammatory to moderately inflammatory looking fluid. It was not pus. We sent this off for cell count with differential as well as the Gram stain aerobic and anaerobic culture. The knee was then wrapped with an Joni bandage. The patient tolerated procedure well and there were no complications. History of Present Illness Reason for Consultation: . Left knee infection. Requesting Physician: . . Patient is a 73-year-old female with underlying multiple sclerosis and multiple other medical comorbidities who we have been consulted for evaluation of left knee pain discomfort and swelling. Patient is known to me from previous treatment in the past. She been followed and treated in our group for multiple issues. This morning she woke up and her knee was painful. Got worse as the day went on. Reports no trauma. She was seen in the emergency room and now admitted to the medicine service for a cellulitis. We are consulted for evaluation. Denies any other aches or pains. Denies any falls. Allergies Allergy/AdvReac Type Severity Reaction Status Date / Time No Known Allergies Allergy Verified 03/26/24 13:24 Home Medications Medication Instructions Recorded Confirmed Type cholecalciferol (vitamin D3) 25 2,000 units PO QAM 09/18/18 04/14/24 History mcg (1,000 unit) capsule escitalopram oxalate 20 mg tablet 20 mg PO QAM 09/18/18 04/14/24 History (Lexapro) oxybutynin chloride 15 mg 15 mg PO QAM 09/18/18 04/14/24 History tablet,extended release 24 hr prednisone 10 mg tablet 10 mg PO QAM 09/18/18 04/14/24 History omeprazole 40 mg capsule,delayed 40 mg PO QAM 07/06/21 04/14/24 History release teriflunomide 14 mg tablet 14 mg PO QPM 05/13/22 04/14/24 History (Aubagio) doxycycline hyclate 50 mg capsule 50 mg PO Q2D Rosacea 08/10/22 04/14/24 History melatonin 3 mg tablet 3 mg PO HS 03/05/23 04/14/24 History multivitamin 1 tab PO DAILY 03/05/23 04/14/24 History atorvastatin 20 mg tablet (Lipitor) 20 mg PO QAM 08/04/23 04/14/24 History Baclofen Pump 0 mg SC DIRECTED 08/05/23 04/14/24 History tizanidine 4 mg tablet (Zanaflex) 4 mg PO Q6 Muscle Spasm 12/15/23 04/14/24 History apixaban 5 mg tablet (Eliquis) 5 mg PO BID 02/03/24 04/14/24 History sennosides 8.6 mg tablet (Senokot) 8.6 mg PO QAM #30 tabs 02/14/24 04/14/24 Rx magnesium oxide 400 mg (241.3 mg 400 mg PO AMHS 04/14/24 04/14/24 History magnesium) tablet metoprolol succinate 50 mg 50 mg PO Q12 04/14/24 04/14/24 History tablet,extended release 24 hr Past Med/Surg History Problem List Septic prepatellar bursitis Paroxysmal atrial fibrillation Wound infection CLABSI (central line-associated bloodstream infection) Bacteremia Fungemia Myocardial strain Tachycardia Rosacea Hypomagnesemia Diarrhea Acute deep vein thrombosis of left lower extremity (Chronic) Traumatic open wound of right lower leg (Acute) Catheter-associated urinary tract infection Sepsis (Acute) Leg wound, right (Acute) Skin tear of left upper extremity (Acute) Chronic refractory osteomyelitis of ankle (Acute) Surgical wound, non healing (Acute) Osteomyelitis of ankle (Acute) Sepsis (Acute) Cellulitis of left lower leg (Acute) Chronic ulcer of right foot (Acute) HX: breast cancer Left breast cancer with surgery and chemo/radiation-left arm restriction Chronic anemia Paroxysmal atrial fibrillation Lower extremity edema (Chronic) Traumatic open wound of left lower leg with delayed healing (Acute) Ulcer of right ankle (Acute) Paroxysmal atrial fibrillation with RVR Hypotension Acute UTI (Acute) UTI (urinary tract infection) (Acute) Status post reverse total replacement of right shoulder (~04/2022) Encounter for pre-operative examination Closed right scapular fracture Sepsis Hypertension Multiple sclerosis Elevated troponin (Acute) Sepsis (Acute) Elevated troponin I level (Acute) Hypotension (Acute) Elevated lactic acid level (Acute) GERD (gastroesophageal reflux disease) controlled, stable per pt CAD (coronary artery disease) Non-obstructive per 06/2021 cardiac cath History of supraventricular tachycardia History of pulmonary embolism ~ 6 yrs ago, IVC filter still in place History of DVT (deep vein thrombosis) ~6 yrs ago Multiple sclerosis (Chronic) Follows with Dr. Walker/[facility] Stable Osteoporosis (Chronic) Neurogenic bladder (Chronic) SELF CATH 2-3 X'S PER DAY *RECENT HOSPITALIZATION FOR UTI Raynaud disease (Chronic) Presence of intrathecal pump (Chronic) baclofen pump in place--status post revision/replacement 08/10/2022 S/P IVC filter (Chronic) H/O left mastectomy (Chronic) with lymph node removal>LEFT ARM RESTRICTION History of open reduction and internal fixation (ORIF) procedure (Chronic) "left hip" S/P partial hysterectomy (Chronic) History of appendectomy (Chronic) Medical History Fever History of recent hospitalization 09/2022 [facility] - sepsis History of blood transfusion Limb alert care status left arm Osteoarthritis of right shoulder History of GI bleed Upper GIB (2019) felt 2/2 NSAID use History of non-ST elevation myocardial infarction (NSTEMI) 06/2021 (had heart cath, no stents) Hx of gastric ulcer 02/2021 Anemia Hypertension controlled, stable per pt Surgical History History of removal of Port-a-Cath (02/09/24) Mediport Removal(Right) - Tristin Lazo DO Port-A-Cath in place (09/29/23) A-Port Insertion, right internal jugular(Right) - Tristin Lazo DO S/p reverse total shoulder arthroplasty right: 05/25/22 LMA#4. No postop issues per anesthesia progress note. History of cardiac cath Cardiac cath (07/06/21; [facility]) > Right dominant coronary system. No evidence of aortic stenosis. Normal left ventricular filling pressures. Nonobstructive disease involving the ostial LAD. No evidence of acute coronary syndrome. Approximately 50% ostial stenosis of the LAD. There was some very mild disease at the ostium of the left circumflex. Recommendations: Medical management. History of esophagogastroduodenoscopy (EGD) History of colonoscopy History of tooth extraction Family History Mother Heart disorder Other No family history of adverse response to anesthesia Social History Smoking Status: Former smoker Tobacco Type: Cigarettes packs per day: 1; Cigarettes Per Day: stopped in 1977; Second Hand Exposure: No; Do You Dip or Chew Tobacco: No; Hx Alcohol Use: No Hx Substance Use: No Preferred Language: Central African Communication Ability: Effective Visual Impairment: Limited Hearing Ability: Use of Hearing Aid Produce Team Lead Required: No Beliefs That Will Affect Care: None marital status: / Current Living Situation: Alone Current Living Situation Comment: Daughters are an hour away current occupational status: retired How many Children do You have: 3 Feels Safe at Home: Yes Childhood Exposure to Second-Hand Smoke: Yes Diet: regular caffeine: Yes Assistive Devices: Walker and Wheelchair Review of Systems All systems reviewed & are unremarkable except as noted in HPI & below. Physical Exam . Examination left knee reveals patient lies in bed and looks pretty comfortable. Examination left knee reveals to be slightly flexed. She got healing scab over the front aspect of her knee which is about 3 mm x 3 mm. She got diffuse redness around the prepatellar bursa and fluid in her bursa and a swollen prepatellar bursa. There is no knee effusion. Some mild warmth. She is neurologically intact. She does have multiple scabs and healing scabs throughout her entire upper and lower extremities. Results & Data Results & Data Laboratory Results . White blood cell count of 15. Sed rate is 70. CRP is pending. Diagnostic Findings . PG Care Time/CCT Total # of Minutes Spent Total Time Spent with Patient: Total time spent is greater than 50% in coordination of care (as documented) at patient's floor/unit and/or counseling patient: Coding Level of Care Code 47184 IN/OBS CONSULT LVL 4,60M Diagnoses Septic prepatellar bursitis M71.169
[2024-04-14 21:56] LABS: Appearance Synovial Fluid Cloudy; Color Synovial Fluid Pink; Mononuclear WBC Synovial 9.3 %; Polynuclear WBC Synovial 90.7 %; RBC Synovial Fluid Auto 21000 /uL; Source Synovial Fluid Knee; WBC Synovial Fluid Auto 7852 /ul (0-200)
[2024-04-14] MEDS: MAGNESIUM SULFATE / D5W 1 GM/100 ML BAG IV ONE (23:16)
[2024-04-14 23:17] LABS: C Reactive Protein 5.53 mg/dl (0-0.5)
--- NOTE | 2024-04-14 23:33 | History & Physical Report ---
Date of Service April 14, 2024 Assessment & Plan (1) Sepsis: Plan: Immunocompromised patient MS on chronic prednisone and Aubagio Rx Secondary to septic bursitis right knee hx CAD PAF/PE DVT status post IVC filter placement on Eliquis mild hypertension, slightly elevated hyperlipidemia on statin Rx history of neurogenic bladder L breast cancer status post surgery/radiation chronic anemia, hemoglobin at baseline rosacea on doxycycline chronic pain on baclofen pump Steroid-induced hyperglycemia rule out DM past tobacco abuse. Medical telemetry CS, Daptomycin and Cefepime Orthopedics consult Re: Right knee swelling (Patient already seen by Dr. Morales at the ER, aspiration done at bedside.) Continue current prednisone home Rx, hold Aubagio for now Check hemoglobin A1c DVT prophylaxis. Continue home Eliquis (okay as per discussion with Dr. Morales.) Full code Patient daughter requesting updates from providers. Ms. Alyssa Perez, contact #[phone]. Text document was generated using [employer] voice recognition software. It may contain grammatical or spelling errors. Kindly contact undersigned for clarification of any documentation item in question. History of Present Illness Chief Complaint: Painful left knee swelling Primary Care Provider: KEVIN Lema History obtained from patient, family, and records. Medical history significant for CAD, PSVT,PAF/PE DVT status post IVC filter placement on Eliquis, mild (TTE 2023), hypertension, hyperlipidemia, , MS on chronic prednisone and Aubagio Rx, history of neurogenic bladder, history ESBL E. coli UTI, L breast cancer status post surgery/radiation, past history right ankle osteomyelitis, history of venous stasis as per records,, chronic anemia (baseline hemoglobin 9), rosacea on doxycycline, skin cancer status post surgery, chronic pain on baclofen pump, past tobacco abuse. Last confinement January 2024 for septicemia and fungemia. Possible sources included UTI, left lower extremity cellulitis, right ankle wound, and vascular device. Blood cultures grew group B strep, Enterococcus faecalis, Sheila. No vegetations on BALA. Patient A port removed during confinement. Patient completed ampicillin and fluconazole course. Patient woke up this morning with achy left knee pain and worsening swelling. No recollection of recent trauma. Patient denies headache, chest pain, cough, abdominal pain, diarrhea, UTI symptoms. Fever chills at home. No unusual weight gain as per patient. Daptomycin and Zosyn administered at the ER. MED hx as above : OPERATIONS: She has had left mastectomy, left hip surgery, IVC filter placement, hysterectomy, shoulder surgery, dental surgery, spinal pain pump placement, appendectomy family by fracture surgery, a port placement/removal, bone debridement FAMILY HISTORY: thyroid cancer, heart disease PERSONAL AND SOCIAL HISTORY: Past tobacco abuse. No chronic intake of alcoholic beverages. 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 Allergies Allergy/AdvReac Type Severity Reaction Status Date / Time No Known Allergies Allergy Verified 03/26/24 13:24 Home Medications Medication Instructions Recorded Confirmed Type cholecalciferol (vitamin D3) 25 2,000 units PO QAM 09/18/18 04/14/24 History mcg (1,000 unit) capsule escitalopram oxalate 20 mg tablet 20 mg PO QAM 09/18/18 04/14/24 History (Lexapro) oxybutynin chloride 15 mg 15 mg PO QAM 09/18/18 04/14/24 History tablet,extended release 24 hr prednisone 10 mg tablet 10 mg PO QAM 09/18/18 04/14/24 History omeprazole 40 mg capsule,delayed 40 mg PO QAM 07/06/21 04/14/24 History release teriflunomide 14 mg tablet 14 mg PO QPM 05/13/22 04/14/24 History (Aubagio) doxycycline hyclate 50 mg capsule 50 mg PO Q2D Rosacea 08/10/22 04/14/24 History melatonin 3 mg tablet 3 mg PO HS 03/05/23 04/14/24 History multivitamin 1 tab PO DAILY 03/05/23 04/14/24 History atorvastatin 20 mg tablet (Lipitor) 20 mg PO QAM 08/04/23 04/14/24 History Baclofen Pump 0 mg SC DIRECTED 08/05/23 04/14/24 History tizanidine 4 mg tablet (Zanaflex) 4 mg PO Q6 Muscle Spasm 12/15/23 04/14/24 History apixaban 5 mg tablet (Eliquis) 5 mg PO BID 02/03/24 04/14/24 History sennosides 8.6 mg tablet (Senokot) 8.6 mg PO QAM #30 tabs 02/14/24 04/14/24 Rx magnesium oxide 400 mg (241.3 mg 400 mg PO AMHS 04/14/24 04/14/24 History magnesium) tablet metoprolol succinate 50 mg 50 mg PO Q12 04/14/24 04/14/24 History tablet,extended release 24 hr Past Med/Surg History Problem List Knee pain (Acute) Septic prepatellar bursitis (Acute) Paroxysmal atrial fibrillation Wound infection CLABSI (central line-associated bloodstream infection) Bacteremia Fungemia Myocardial strain Tachycardia Rosacea Hypomagnesemia Diarrhea Acute deep vein thrombosis of left lower extremity (Chronic) Traumatic open wound of right lower leg (Acute) Catheter-associated urinary tract infection Sepsis (Acute) Leg wound, right (Acute) Skin tear of left upper extremity (Acute) Chronic refractory osteomyelitis of ankle (Acute) Surgical wound, non healing (Acute) Osteomyelitis of ankle (Acute) Sepsis (Acute) Cellulitis of left lower leg (Acute) Chronic ulcer of right foot (Acute) HX: breast cancer Left breast cancer with surgery and chemo/radiation-left arm restriction Chronic anemia Paroxysmal atrial fibrillation Lower extremity edema (Chronic) Traumatic open wound of left lower leg with delayed healing (Acute) Ulcer of right ankle (Acute) Paroxysmal atrial fibrillation with RVR Hypotension Acute UTI (Acute) UTI (urinary tract infection) (Acute) Status post reverse total replacement of right shoulder (~04/2022) Encounter for pre-operative examination Closed right scapular fracture Sepsis Hypertension Multiple sclerosis Elevated troponin (Acute) Sepsis (Acute) Elevated troponin I level (Acute) Hypotension (Acute) Elevated lactic acid level (Acute) GERD (gastroesophageal reflux disease) controlled, stable per pt CAD (coronary artery disease) Non-obstructive per 06/2021 cardiac cath History of supraventricular tachycardia History of pulmonary embolism ~ 6 yrs ago, IVC filter still in place History of DVT (deep vein thrombosis) ~6 yrs ago Multiple sclerosis (Chronic) Follows with Dr. Walker/[facility] Stable Osteoporosis (Chronic) Neurogenic bladder (Chronic) SELF CATH 2-3 X'S PER DAY *RECENT HOSPITALIZATION FOR UTI Raynaud disease (Chronic) Presence of intrathecal pump (Chronic) baclofen pump in place--status post revision/replacement 08/10/2022 S/P IVC filter (Chronic) H/O left mastectomy (Chronic) with lymph node removal>LEFT ARM RESTRICTION History of open reduction and internal fixation (ORIF) procedure (Chronic) "left hip" S/P partial hysterectomy (Chronic) History of appendectomy (Chronic) Medical History Fever History of recent hospitalization 09/2022 [facility] - sepsis History of blood transfusion Limb alert care status left arm Osteoarthritis of right shoulder History of GI bleed Upper GIB (2019) felt 2/2 NSAID use History of non-ST elevation myocardial infarction (NSTEMI) 06/2021 (had heart cath, no stents) Hx of gastric ulcer 02/2021 Anemia Hypertension controlled, stable per pt Surgical History History of removal of Port-a-Cath (02/09/24) Mediport Removal(Right) - Tristin Lazo DO Port-A-Cath in place (09/29/23) A-Port Insertion, right internal jugular(Right) - Tristin Lazo DO S/p reverse total shoulder arthroplasty right: 05/25/22 LMA#4. No postop issues per anesthesia progress note. History of cardiac cath Cardiac cath (07/06/21; [facility]) > Right dominant coronary system. No evidence of aortic stenosis. Normal left ventricular filling pressures. Nonobstructive disease involving the ostial LAD. No evidence of acute coronary syndrome. Approximately 50% ostial stenosis of the LAD. There was some very mild disease at the ostium of the left circumflex. Recommendations: Medical management. History of esophagogastroduodenoscopy (EGD) History of colonoscopy History of tooth extraction Family History Mother Heart disorder Other No family history of adverse response to anesthesia Social History Smoking Status: Former smoker Tobacco Type: Cigarettes packs per day: 1; Cigarettes Per Day: stopped in 1977; Second Hand Exposure: No; Do You Dip or Chew Tobacco: No; Hx Alcohol Use: No Hx Substance Use: No Preferred Language: American Communication Ability: Effective Visual Impairment: Limited Hearing Ability: Use of Hearing Aid Envelope Patternmaker Required: No Beliefs That Will Affect Care: None marital status: / Current Living Situation: Alone Current Living Situation Comment: daughters are an hour away but check on her frequently per pt current occupational status: retired How many Children do You have: 3 Other Information That Helps Us Care for You: No Feels Safe at Home: Yes Safety Concerns: Feels Safe At This Time Childhood Exposure to Second-Hand Smoke: Yes Diet: regular caffeine: Yes Assistive Devices: Hearing Aid - Bilateral, Walker and Wheelchair Review of Systems Review of Systems: As per HPI, all other systems reviewed and negative Physical Exam Physical Exam: GENERAL: Comfortable, pleasant, slightly hard of hearing, no respiratory distress SKIN: Pallor, warm HEENT: Pale palpebral conjunctivae, no ptosis, dry buccal mucosa NECK : Supple, no tenderness CHEST : CTA, no tenderness HEART : tachycardic, systolic murmur ABDOMEN: Some distention, no tenderness tenderness EXTREMITIES : Bilateral LE swelling, bandage over left knee, erythema over left foot NEUROLOGIC : Coherent, no facial asymmetry, mild hearing impairment, gait and stance not assessed Results & Data Results & Data Vital Signs (Past 12 Hours) Vital Signs Temp Pulse Pulse Resp BP BP Pulse Ox 04/14/24 23:02 106 H 04/14/24 23:00 107 H 22 123/94 94 04/14/24 19:33 37.4 C 100 H 16 132/81 97 04/14/24 18:39 36.5 C 58 L 16 129/78 98 O2 Del Method 04/14/24 23:02 04/14/24 23:00 Room Air 04/14/24 19:33 Room Air 04/14/24 18:39 Room Air Laboratory Results Laboratory Results WBC 15.00 K/ul (4.8-10.8) H 04/14/24 19:50 RBC 3.57 M/uL (4.20-5.40) L 04/14/24 19:50 Hgb 9.7 g/dl (12.0-16.0) L 04/14/24 19:50 Hct 31.4 % (37.0-47.0) L 04/14/24 19:50 MCV 88.0 fL (80.0-100.0) 04/14/24 19:50 MCH 27.2 pg (25.0-34.0) 04/14/24 19:50 MCHC 30.9 g/dL (32.0-36.0) L 04/14/24 19:50 RDW Std Deviation 62.3 fL (36.4-46.3) H 04/14/24 19:50 RDW Coeff of Tiffanie 19.1 % (11.5-14.5) H 04/14/24 19:50 Plt Count 304 K/uL (130-400) 04/14/24 19:50 MPV 10.8 fL (9.4-12.4) 04/14/24 19:50 Immature Gran % (Auto) 0.5 % 04/14/24 19:50 Neut % (Auto) 86.5 % 04/14/24 19:50 Lymph % (Auto) 4.9 % 04/14/24 19:50 [place] % (Auto) 7.8 % 04/14/24 19:50 Eos % (Auto) 0.0 % 04/14/24 19:50 Baso % (Auto) 0.3 % 04/14/24 19:50 Neut # (Auto) 12.96 K/uL (1.40-6.50) H 04/14/24 19:50 Lymph # (Auto) 0.74 K/uL (1.20-3.40) L 04/14/24 19:50 [place] # (Auto) 1.17 K/uL (0.11-0.59) H 04/14/24 19:50 Eos # (Auto) 0.00 K/uL (0.00-0.50) 04/14/24 19:50 Baso # (Auto) 0.05 K/uL (0.00-0.20) 04/14/24 19:50 Immature Gran # (Auto) 0.08 K/uL (0.01-0.20) 04/14/24 19:50 ESR 70 mm/hr (0-30) H 04/14/24 19:50 PT 11.3 Seconds (9.0-12.0) 04/14/24 19:50 INR 1.0 (0.9-1.1) 04/14/24 19:50 APTT 27 Seconds (21-31) 04/14/24 19:50 PTT Ratio 1.0 04/14/24 19:50 Sodium 137 mmol/L (136-145) 04/14/24 19:50 Potassium 4.0 mmol/L (3.5-5.1) 04/14/24 19:50 Chloride 102 mmol/L (98-107) 04/14/24 19:50 Carbon Dioxide 27 mmol/L (21-32) 04/14/24 19:50 Anion Gap 8 (3-11) 04/14/24 19:50 BUN 29 mg/dl (6-23) H 04/14/24 19:50 Creatinine 0.83 mg/dl (0.6-1.2) 04/14/24 19:50 Est Cr Clr Drug Dosing Not Reportable 04/14/24 19:50 Est GFR ( Amer) 82.2 ml/min 04/14/24 19:50 Est GFR (Non-Af Amer) 70.9 ml/min 04/14/24 19:50 BUN/Creatinine Ratio 34.9 (10-20) H 04/14/24 19:50 Glucose 126 mg/dl (70-99(Fasting)) H 04/14/24 19:50 Lactate 2.0 mmol/L (0.4-2.0) 04/14/24 20:55 Uric Acid 4.0 mg/dl (2.6-7.2) 04/14/24 19:50 Calcium 8.9 mg/dl (8.6-10.3) 04/14/24 19:50 Magnesium 1.6 mg/dl (1.7-2.4) L 04/14/24 19:50 Total Bilirubin 0.4 mg/dl (0.2-1.0) 04/14/24 19:50 AST 24 U/L (13-39) 04/14/24 19:50 ALT 17 U/L (7-52) 04/14/24 19:50 Alkaline Phosphatase 68 U/L (34-104) 04/14/24 19:50 C-Reactive Protein 5.53 mg/dl (0-0.5) H 04/14/24 19:50 Total Protein 6.7 gm/dl (6.0-8.3) 04/14/24 19:50 Albumin 3.7 gm/dl (3.4-5.0) 04/14/24 19:50 Globulin 3.0 gm/dl (2.5-4.0) 04/14/24 19:50 Albumin/Globulin Ratio 1.2 (0.9-2) 04/14/24 19:50 Procalcitonin 0.12 ng/ml (0-0.5) 04/14/24 19:50 Fluid Comment 04/14/24 Unknown Synovial Source Knee 04/14/24 Unknown Synovial Color [place] 04/14/24 Unknown Synovial Appearance Cloudy 04/14/24 Unknown Synovial WBC (Auto) 7852 /ul (0-200) H 04/14/24 Unknown Synovial RBC (Auto) 86049 /uL 04/14/24 Unknown Synovial Polynuclear % 90.7 % 04/14/24 Unknown Synovial Mononuclear % 9.3 % 04/14/24 Unknown Impressions Knee X-Ray 04/14/24 19:15 XR knee LT 1 or 2V routine HISTORY: 73 years-old Female edema/pain acute left knee pain with soft tissue swelling COMPARISON: 08/30/2014 TECHNIQUE: 3 views of left knee FINDINGS: Genu valgum. Severe lateral with moderate medial and patellofemoral compartment osteoarthritis. Chondrocalcinosis. Numerous subcentimeter loose bodies of the posterior joint space. Arterial calcifications. Small moderate joint effusion containing calcifications. Moderate prepatellar soft tissue swelling. IMPRESSION: 1. Joint effusion without acute fracture or dislocation. 2. Genu valgum with severe lateral compartment osteoarthritis. 3. Intra-articular loose bodies. 4. Moderate prepatellar soft tissue swelling. ACT 112: Negative or not required by law. The above report was generated using voice recognition software. It may contain grammatical, syntax or spelling errors. Electronically signed by: Nasir Mccauley M.D. 04/14/2024 7:34 PM Diagnostic Findings Chest x-ray as per my interpretation cardiomegaly with minimal congestion (1) Sepsis Sepsis acute organ dysfunction status: unspecified Sepsis type: sepsis due to unspecified organism Qualified Code(s): A41.9 - Sepsis, unspecified organism
[2024-04-14] MEDS ORDERED: traMADol HCL 50 MG TABLET PO PRN (23:44)
[2024-04-14] MEDS ORDERED: ACETAMINOPHEN 325 MG TAB PO PRN (23:44)
[2024-04-14] MEDS ORDERED: PROMETHAZINE HCL 6.25 MG in SODIUM CHLORIDE 0.9% 50 ML IV PRN (23:44)
[2024-04-15] MEDS: APIXABAN 5 MG TABLET PO STA (00:16)
[2024-04-15] MEDS: METOPROLOL SUCC 50MG EXT REL TAB PO STA (00:16)
[2024-04-15] MEDS: Patient's HEIGHT &/or WEIGHT Needed SCH (00:16)
[2024-04-15] MEDS: ALBUMIN 25% 25 GM/100 ML VIAL IV ONE ×3 (01:22→21:03)
[2024-04-15] MEDS ORDERED: BACLOFEN PAIN PUMP IT SCH (02:25)
[2024-04-15] MEDS: MELATONIN 3 MG TAB PO PRN (02:48)
[2024-04-15] MEDS: tiZANidine HCL 4 MG TABLET PO SCH (02:48)
--- NOTE | 2024-04-15 03:56 | Ultrasound Report ---
Exam(s): US VENOUS LEFT LOWER EXTREMITY EXAM: US Duplex Left Lower Extremity Veins CLINICAL HISTORY: Reason for exam: edema erythema. TECHNIQUE: Real-time duplex ultrasound scan of the left lower extremity veins integrating B-mode two-dimensional vascular structure, Doppler spectral analysis, color flow Doppler imaging and compression. COMPARISON: 09/17/2023. FINDINGS: Limitations: There is limited visualization of the calf veins due to edema. Deep veins: Unremarkable. No DVT in the visualized common femoral, femoral, proximal deep femoral or popliteal veins. The veins demonstrate normal color flow, are normally compressible, with normal phasic flow and/or augmentation response. Superficial veins: There is a small area of echogenicity within the proximal greater saphenous vein with no color-flow suggestive of superficial thrombosis. There is reversed flow within the greater saphenous vein. Soft tissues: Nonspecific edema through the calf region. No popliteal cyst. IMPRESSION: 1. No ultrasonographic evidence of deep venous thrombosis involving the left lower extremity. 2. Superficial thrombosis of the cephalad greater saphenous vein. Electronically signed by: Amita Sarmiento MD 04/15/24 03:55 AM
--- OUTSIDE RECORDS SUMMARY | 2024-04-15 03:58 | External Medical Summary | Summary of Care ---
Author Name Unknown Organization [facility] Address [address] [place] [address] Phone [phone] Care Team Providers Care Crimper Operator Name Role Phone Simi Hernandez Tami BROWN Primary Care Provider Reason for Visit * Reason Onset Date Comments FYI 04/03/2024 Encounter Details Date Type Department Care Team (Late st Contact Info) Description 04/03/2024 Telephone Cardiology, [facility] [address] [place] [address] Camille Cuevas PA-C [address] [place] [address] FY Allergies No known active allergiesdocumented as of this encounter (statuses as of 04/06/2024) Medications Medication Sig Dispensed Refills Start Date End Date Status VITAMIN D 1000 UNITS PO CAPSIndications:Ost eoporosis One capsule daily 30 Cap 5 03/21/2013 Active Aubagio 14 MG Oral Tablet Take 1 Tablet by mouth in the morning. Takes at night. 0 Active Acetaminophen 500 MG Oral Tablet Take 1 Tablet by mouth every 6 hours as needed. 0 Active Melatonin 3 MG Oral Tablet Disintegrating Take 3 mg by mouth every night at bedtime. 30 Tablet 0 09/07/2022 Active Multivitamin Adult [...] as needed 50 g 1 03/08/2023 Active Oxybutynin Chloride ER 15 MG Oral [...] physical therapy. 2 Each 0 07/27/2023 Active predniSONE 10 MG Oral Tablet (Deltasone)Indicati ons:Multiple sclerosis (HCC) Take 1 tablet by mouth once daily 90 Tablet 1 11/14/2023 Active Escitalopram Oxalate 20 MG Oral Tablet (Lexapro) Take 1 tablet by mouth once daily 90 Tablet 3 11/24/2023 Active Doxycycline Hyclate 50 MG Oral Capsule (Vibramycin)Indicat ions:Rosacea TAKE 1 CAPSULE BY MOUTH EVERY OTHER DAY 45 Capsule 0 11/24/2023 Active Eliquis 5 MG Oral Tablet Take 1 tablet by mouth twice daily 60 Tablet 5 02/23/2024 Active Omeprazole 40 MG Oral Capsule Delayed Release (PriLOSEC) Take 1 capsule by mouth in the morning 30 Capsule 5 02/23/2024 Active tiZANidine HCl 4 MG Oral Tablet (Zanaflex) Take 1 Tablet by mouth every 6 hours as needed for Muscle spasms. 360 Tablet 0 03/22/2024 Active Magnesium Oxide 400 240 MG Oral Packet (Magnesium Oxide) Take 400 mg by mouth in the morning and 400 mg before bedtime. 180 Each 3 03/22/2024 Active Transdermal Pain Base External Cream Apply to feet daily as needed. 500 g 2 03/22/2024 Active Metoprolol Succinate ER 50 MG Oral Tablet Extended Release 24 Hour (toPROL XL) Take 1 Tablet by mouth in the morning and 1 Tablet before bedtime. 0 02/27/2024 Active Metoprolol Tartrate 25 MG Oral Tablet (Lopressor) Take 1 tablet by mouth twice daily 180 Tablet 1 12/22/2023 Discontinu ed(Medicat ion/Dose Changed) documented as of this encounter (statuses as of 04/06/2024) Active Problems Problem Noted Date Diagnosed Date Nonrheumatic aortic valve stenosis 03/23/2024 Chronic ulcer of right foot 03/12/2024 Acute deep vein thrombosis ( DVT) of proximal vein of left lower extremity 03/12/2024 Chronic osteomyelitis of fibula 03/12/2024 Dysuria 12/27/2023 Need for prophylactic vaccin ation and inoculation against influenza 10/17/2023 Protein-calorie malnutrition 07/21/2023 Pyogenic inflammation of bone 06/09/2023 Encounter for management of wound VAC 06/09/2023 Bladder dysfunction 04/05/2023 Paroxysmal A-fib 03/17/2023 Hydronephrosis 03/17/2023 HTN, goal below 140/90 01/04/2023 Dyslipidemia, goal LDL below 70 01/04/2023 Debility 11/05/2022 Coronary artery disease invo lving [place] coronary artery of [place] heart without angina pectoris 11/05/2022 Medical home patient encounter 09/30/2022 S/P shoulder replacement, right 09/07/2022 ESBL E. coli carrier 09/07/2022 Presence of intrathecal baclofen pump 09/07/2022 History of WI (myocardial infarction) 05/12/2022 Mass of chest wall, [...] as of this encounter (statuses as of 04/06/2024) Resolved Problems Problem Noted Date Diagnosed Date [...] as of this encounter (statuses as of 04/06/2024) Immunizations Name Administration Dates Next Due COVID-19 mRNA, LNP-s, No Pre serve, 2-Dose Series ([employer]) 04/18/2022,11/12/2021,01/28/2021,01/14 PPD 06/05/2018 Pneumococcal Conjugate Vacc, 13 [...] encounter Miscellaneous Notes * Telephone Encounter - Danielle Alonzo RN - 04/06/2024 4:04 PM EDT Spoke with patient and verified that she is taking the correct Metoprolol at the correct dose. Danielle Alonzo RN * Telephone Encounter - Camille Cuevas PA-C - 04/05/2024 10:30 AM EDT Per discharge instructions patient was discharged on metoprolol SUCCINATE 50 mg - 1 tablet in the morning and 1 tablet in the evening. She was previously on metoprolol tartrate. Please call patient and verify she is on the correct metoprolol and make sure she is taking twice per day * Telephone Encounter - Arnie Trammell LPN - 04/03/2024 3:20 PM EDT Medication list updated. * Telephone Encounter - Samaria Samaniego OSA - 04/03/2024 2:45 PM EDT Person calling: Patient Relationship to patient: self Number to return call: [phone] Reason for call: Patient calling requesting to leave a message for Camille Cuevas PA-C. Pt will like to inform that she is now taking 50 mg of metoprolol. Pharmacy: n/a Provider Name: Camille Cuevas PA-C documented in this encounter Plan of Treatment Upcoming Encounters Date Type Department Care Team (Late st Contact Info) Description 04/10/2024 8:00 AM EDT Office Visit [facility] Surgery [facility] [address] [place] [address] Radha Boogie MD [address] [place] [address] 04/17/2024 3:00 PM EDT Office Visit [facility] [address] [place] [address] Simi Hernandez CRNP [address] [place] [address] 05/15/2024 3:00 PM EDT Office Visit [facility] [address] [place] [address] Simi Hernandez CRNP [address] [place] [address] 05/16/2024 9:30 AM EDT Office Visit Urology Kirstie Avina [address] [place] [address] [place] [address] Elba Morales PA-C [address] [place] [address] [place] [address] 05/24/2024 1:40 PM EDT Office Visit Dermatology [facility] [address] [place] [address] Lisa Garcia PA-C [address] [place] [address] 06/21/2024 1:40 PM EDT Office Visit Family [facility] [address] [facility] [place] [address] Simi Hernandez CRNP 132 [facility] [place] [address] 06/25/2024 3:00 PM EDT Office Visit Cardiology, [facility] [address] [place] [address] Camille Cuevas PA-C [address] [place] [address] 06/25/2024 3:30 PM EDT Cardiac Studies Cardiac Studies, [facility] [address] [place] [address] 07/19/2024 1:40 PM EDT Office Visit [facility] [address] [place] [address] Simi Hernandez CRNP [address] [place] [address] 08/22/2024 3:00 PM EDT Office Visit [facility] [address] [place] [address] Simi Hernandez CRNP [address] [place], [place] [address] 09/26/2024 3:00 PM EDT Office Visit [facility] [address] [place], [place] [address] Simi Hernandez CRNP [address] [place] [address] 10/23/2024 3:00 PM EST Office Visit [facility] [address] [place] [address] Simi Hernandez CRNP [address] [place] [address] 11/23/2024 3:00 PM EST Office Visit [facility] [address] [place], [place] [address] Simi Hernandez CRNP [address] [place] [address] Scheduled Procedures Name Priority Associated Diagnoses Date/Ti me COLONOSCOPY FLEXIBLE PROXIMAL DIAGNOSTIC Recall Screen for colon cancer Health Maintenance Due Date Last Done Comments Albumin/Creatinine Ratio 1970 Cologuard 1997 Sigmoidoscopy 1997 DTaP,Tdap,and Td Vaccines (2 - Td or Tdap) 04/30/2019 04/30/2009 Fecal Occult Blood Test 11/24/2019 11/24/2018 DXA Scan 05/15/2020 05/15/2018, 04/29, 05/06/2014, Additional history exists *BISPHONATE OR OTHER ACCEPTABLE MEDICATION NEEDED FOR OSTEOPOROSIS (REFER TO SMARTSET #1146) 05/24/2020 Pneumococcal Vaccine: 65+ Years (3 of 3 - PPSV23 or PCV20) 09/24/2020 07/30/2020, 07/05/2011 COVID-19 Vaccine ( season) 2023 06/04/2022, 06/04/2022, 04/18/2022, Additional history exists Mammogram 04/15/2024 04/15/2023, 03/28, 12/17/2019, Additional history exists GFR 03/01/2025 03/01/2024, 01/27, 02/22/2024, Additional history exists Colonoscopy 05/05/2028 05/05/2023, 0606/2023, 11/04/2022, Additional history exists Colorectal Cancer Screening 05/05/2028 VITAMIN D LEVEL ONCE IN A LIFETIME-USE SMARTSET# 74652 Completed 01/17/2023, 04/05/2022, 04/28/2021, Additional history exists RETIRED - COLONOSCOPY-EVERY 5 YRS AGES 18-100 Discontinued 05/05/2023, 05/05/2023, 11/04/2022, Additional history exists Influenza Vaccine (FLU shot) [...] and were consensually agreed upon. Care Teams Crimper Operator Relationship Specialty Start Date End Date Simi Hernandez CRNP [address] [place] [address] PCP - General Nurse Practitioner 10/05/22 documented as of this encounter
--- OUTSIDE RECORDS SUMMARY | 2024-04-15 03:58 | External Medical Summary | Summary of Care ---
Author Name Unknown Organization [facility] Address [address] [place] [address] Phone [phone] Care Team Providers Care Rubber Stamp Assembler Name Role Phone Simi Hernandez Tami BROWN Primary Care Provider Reason for Visit * Reason Onset Date Comments Referral 03/27/2024 Encounter Details Date Type Department Care Team (Late st Contact Info) Description 03/27/2024 Telephone Urology Kirstie Avina [address] [place] [address] [place] [address] Elba Morales PA-C [address] [place] [address] [place] [address] Referral Allergies No known active allergiesdocumented as of this encounter (statuses as of 03/27/2024) Medications Medication Sig Dispensed Refills Start Date [...] 07/27/2023 Active predniSONE 10 MG Oral Tablet (Deltasone)Indicatio [...] twice daily 180 Tablet 1 12/22/2023 Active Eliquis 5 MG Oral Tablet Take [...] as needed. 500 g 2 03/22/2024 Active documented as of this encounter (statuses as of 03/27/2024) Active Problems Problem Noted Date Diagnosed Date [...] Debility 11/05/2022 Coronary artery disease invo lving [place] coronary artery of [place] heart without angina pectoris 11/05/2022 Medical home [...] as of this encounter (statuses as of 03/27/2024) Resolved Problems Problem Noted Date Diagnosed Date [...] as of this encounter (statuses as of 03/27/2024) Immunizations Name Administration Dates Next Due COVID-19 mRNA, LNP-s, No Pre serve, 2-Dose Series ([employer]) 04/18/2022,11/12/2021,01/28/2021,01/14 PPD 06/05/2018 Pneumococcal Conjugate Vacc, 13 [...] encounter Miscellaneous Notes * Telephone Encounter - Shanel Mckeon MED ASSIST - 03/27/2024 9:10 AM EDT Lmom to call back to reschedule Urology appt. documented in this encounter Plan of Treatment Upcoming Encounters Date Type Department Care Team (Late st Contact Info) Description 04/10/2024 8:00 AM EDT Office Visit [facility] Surgery [facility] [address] [place] [address] Radha Boogie MD [address] [place] [address] 04/17/2024 3:00 PM EDT Office Visit Family Practice [facility] [address] [place] [address] Simi Hernandez CRNP [address] [place] [address] 05/15/2024 3:00 PM EDT Office Visit [facility] [address] [place] [address] Simi Hernandez CRNP [address] [place] [address] 05/24/2024 1:40 PM EDT Office Visit Dermatology [facility] [address] [place] [address] Lisa Garcia PA-C [address] [facility] [place] [address] 06/21/2024 1:40 PM EDT Office Visit [facility] [address] [place] [address] Simi Hernandez CRNP [address] [place] [address] 06/25/2024 3:00 PM EDT Office [facility] [place] [address] Camille Cuevas PA-C [address] [place] [address] 06/25/2024 3:30 PM EDT Cardiac Studies Cardiac Studies, [facility] [place] [address] 07/19/2024 1:40 PM EDT Office [facility] [place] [address] Simi Hernandez CRNP [address] [place] [address] 08/22/2024 3:00 PM EDT Office Visit [facility] [address] [place] [address] Simi Hernandez CRNP [address] [place] [address] 09/26/2024 3:00 PM EDT Office Visit [facility] [address] [place], [place] [address] Simi Hernandez CRNP [address] [place], [place] [address] 10/23/2024 3:00 PM EST Office Visit [facility] [address] [place] [address] Simi Hernandez CRNP [address] [place] [address] 11/23/2024 3:00 PM EST Office Visit [facility] [address] [place], [place] [address] Simi Hernandez CRNP [address] [place] [address] Scheduled Procedures Name Priority Associated Diagnoses Date/Ti [...] D LEVEL ONCE IN A LIFETIME-USE SMARTSET# [id number] Completed 01/17/2023, 04/05/2022, 04/28/2021, Additional history exists [...] and were consensually agreed upon. Care Teams Rubber Stamp Assembler Relationship Specialty Start Date End Date Simi Hernandez CRNP [address] [place] [address] PCP - General Nurse Practitioner 10/05/22 documented as of this encounter
--- OUTSIDE RECORDS SUMMARY | 2024-04-15 03:58 | External Medical Summary | Summary of Care ---
Author Name Unknown Organization [facility] Address [address] [place] [address] Phone [phone] Care Team Providers Care Edge Sander Name Role Phone Simi Hernandez Primary Care Provider Reason for Referral * Evaluate & Treat - Unlimited Visits (Within 3 days (urgent)) - Authorized Specialty Diagnoses / Procedures Referred By Kenya soliz Referred To Contact Urology Diagnoses Recurrent UTI Simi Hernandez CRNP [address] [place] [address] Referral ID Status Reason Start Date Expiration Date Visits Requested Visits Authorized [id number] Authorized Specialty Services Required 03/22/2024 999 999 Question Answer Referral Priority Within 3 days (urgent) Where should this appointment be scheduled? [facility] What is the patient being referred for? Urinary Concerns Comments SELF CATH RECURRENT UTI AND SEPSIS Reason for Visit * Reason Comments Re-Check STRONG ODOR TO URINE . Encounter Details Date Type Department Care Team (Late st Contact Info) Description 03/21/2024 1:00 PM EDT Office Visit Family [facility] [address] [place] [address] Simi Hernandez CRNP [address] [place] [address] Recurrent UTI*; History of sepsis; Coronary artery disease involving salamatof coronary artery of salamatof heart without angina pectoris; HTN, goal below 140/90; Pressure injury of sacral region, stage 2 (HCC); Paroxysmal A-fib (HCC); Multiple sclerosis (HCC); Anemia of chronic disease; Debility; History of pulmonary embolism; Neurogenic bladder Allergies No known active allergiesdocumented as of this encounter (statuses as of 04/13/2024) Medications Medication Sig Dispensed Refills Start Date [...] as needed. 500 g 2 03/22/2024 Active Transdermal Pain Base External Cream Apply to feet daily as needed. 500 g 2 10/10/2020 4 Discontinu ed(Refill) tiZANidine HCl 4 MG Oral Tablet (Zanaflex) Take 1 Tablet by mouth every 6 hours as needed for Muscle spasms. 360 Tablet 0 11/07/2023 4 Discontinu ed(Refill) Magnesium Oxide 400 240 MG Oral Packet (Magnesium Oxide) 400 mg in the morning and 400 mg before bedtime. 0 09/30/2023 4 Discontinu ed(Refill) Metoprolol Tartrate 25 MG Oral Tablet (Lopressor) Take 1 tablet by mouth twice daily 180 Tablet 1 12/22/2023 4 Discontinu ed(Medicat ion/Dose Changed) documented as of this encounter (statuses as of 04/13/2024) Active Problems Problem Noted Date Diagnosed Date [...] Debility 11/05/2022 Coronary artery disease invo lving salamatof coronary artery of salamatof heart without angina pectoris 11/05/2022 Medical home patient encounter 09/30/2022 S/P shoulder replacement, right 09/07/2022 ESBL E. coli carrier 09/07/2022 Presence of intrathecal baclofen pump 09/07/2022 History of OH (myocardial infarction) 05/12/2022 Mass of chest wall, [...] as of this encounter (statuses as of 04/13/2024) Resolved Problems Problem Noted Date Diagnosed Date [...] as of this encounter (statuses as of 04/13/2024) Immunizations Name Administration Dates Next Due COVID-19 mRNA, LNP-s, No Pre serve, 2-Dose Series ([employer]) 04/18/2022,11/12/2021,01/28/2021,01/14 PPD 06/05/2018 Pneumococcal Conjugate Vacc, 13 [...] Sign Reading Time Taken Comments Blood Pressure 102/60 03/21/2024 1:11 PM EDT Pulse 60 03/21/2024 1:11 PM EDT Temperature - - Respiratory Rate - - Oxygen Saturation - - Inhaled Oxygen Concentration - - Weight 64.6 kg (142 lb 5 oz) 03/21/2024 1:11 PM EDT Height - - Body Mass Index 25.22 03/12/2024 1:15 PM EDT documented in this encounter Progress Notes * Simi Hernandez CRNP - 03/21/2024 1:02 PM EDT Images from the original note were not included. Follow up Family Medicine Visit CC: Follow up History of Present Illness: Kandy Shelby is a 73 year old female presenting for follow up. She was hospitalized AT [facility]. She went to [facility] x 2 weeks then discharged [facility]. Patient states that her daughters are involved in her care but she does not want to have POA at this time because she is concerned she will be put in nursing. She notes increased difficulty remembering details since her hospitalizaiton. Right ankle wound is resolved. Infection in the bone is resolved. Now with pressure sore on right heal. She is seeing Dr. Velasco. Currently in Boot. Scheduled for follow up in 2 weeks. She complaints of persistent diarrhea. She is having loose stools in the am. +burning with urination +malodorous for the last week -fever or chills +chills -back pain She is having incontinence at nights. Currently not self cathing because she ran out of self cath supplies. She stopped self cathing a month ago. Social History Socioeconomic History Marital status: Spouse name: Not on file Number of children: 3 Years of education: Not on file Highest education level: Not on file Occupational History Not on file Tobacco Use Smoking status: Former Current packs/day: 0.00 Average packs/day: 1 pack/day for 6.0 years (6.0 ttl pk-yrs) Types: Cigarettes Start date: 07/05/1974 Quit date: 07/05/1980 Years since quittin.7 Smokeless tobacco: Never Tobacco comments: quit about [...] on file Food Insecurity: No Food Insecurity (01/20/2024) Hunger Vital Sign Worried About Running Out [...] BONE performed by Andrea Stanford MD at OR [facility] BONE DEBRIDEMENT, FIRST 20 CM2 Right 05/12/2023 R lateral ankle osteomyelitis-Andrea Velasco DPM CARDIAC CATH-CARDIOLOGY ONLY 07/06/2021 [facility] COLONOSCOPY, DIAGNOSTIC (RECTUM) polyp removed not retrieved / INPT [facility] COLONOSCOPY, DIAGNOSTIC (RECTUM) 01/26/2018 poor prep, repeat / INPT [facility] COLONOSCOPY, DIAGNOSTIC (RECTUM) N/A 11/04/2022 poor prep/non-bleeding internal hemorrhoids/recall 3 months/Colonoscopy/[place] COLONOSCOPY, DIAGNOSTIC (RECTUM) 05/05/2023 normal, repeat 5 yrs / COLONOSCOPY FLEXIBLE PROXIMAL DIAGNOSTIC performed by Blanche Chi DO at ENDOSCOPY [facility] CYSTOURETHROSCOPY, INJ FOR CHEMODENERVATION 03/29/2014 CYSTOURETHROSCOPY, INJ FOR CHEMODENERVATION performed by Hannah Milner MD at OR [facility] CYSTOURETHROSCOPY, INJ FOR CHEMODENERVATION 05/22/2015 EGD, FLEXIBLE, DIAGNOSTIC 01/25/2018 normal bx/[facility] EGD, FLEXIBLE, DIAGNOSTIC 04/30/2020 reflux esophagitis, gastric ulcer, repeat 2 mo / [facility] EGD, FLEXIBLE, DIAGNOSTIC 06/18/2020 gastric diverticulum, gastric irritation & ulceration, repeat 3-6 mo / [facility] EGD, FLEXIBLE, DIAGNOSTIC 03/19/2021 erosive gastritis, hiatal hernia / [facility] EGD, FLEXIBLE, DIAGNOSTIC 02/19/2022 erosive gastritis, hiatal hernia / [facility] EGD, FLEXIBLE, DIAGNOSTIC N/A 11/04/2022 large hiatal hernia/gastric diverticulum/[facility] TOOTH REMOV PART BONY (2) upper wisdom teeth removed IMPLANT/REPLACE SPINE INFUSION PUMP 07/2022 [facility] MASTECTOMY, MODIFIED RADICAL 09/2001 left breast- Dr. Ibrahim PAIN MANAGEMENT CATH 03/13/2009 [employer]onic Baclofen pump- Dr. Shabazz- [facility] PARTIAL HIP REPLACEMENT & PROSTH left PARTIAL HYSTERECTOMY approx 1991 Ovaries remain in RECONSTRUCT/REPLACE SHOULDER JOINT Right 05/25/2022 Reverse total shoulder--Thad REMOVAL OF APPENDIX 06/25/[address] Johnson [facility] 06/25/2009 REPAIR THIGH FRACTURE, W/IMPLANT 10/2006 Hip ORIF- left hip Dr. Morales REVERSE TOTAL SHOULDER ARTHROPLASTY Right 05/25/2022 Dr. Oneil [facility] SACROILIAC JOINT INJECT W/GUIDANCE 08/17/2018 INJECTION SACROILIAC JOINT performed by Ulises Tran, at OR [facility] SACROILIAC JOINT INJECT W/GUIDANCE 10/09/2018 INJECTION SACROILIAC JOINT performed by Ulises Tran, DO at OR [facility] SACROILIAC JOINT INJECT W/GUIDANCE 02/01/2019 INJECTION SACROILIAC JOINT performed by Ulises Tran, DO at OR [facility] No outpatient medications have been marked as taking for the 03/21/24 encounter (Appointment) with Simi Hernandez CRNP. Review of patient's allergies indicates: No Known Allergies Most Recent Immunizations Administered Date(s) Administered COVID-19 mRNA, LNP-s, No Preserve, 2-Dose Series ([employer]CO Creation) 04/18/2022 Denosumab 01/03/2019 PPD 06/05/2018 Pneumococcal Conjugate [...] Systems: Review of Systems Constitutional: Positive for chills and fatigue. Negative for diaphoresis and fever. Respiratory: Negative for cough, shortness of breath and wheezing. Cardiovascular: Positive for leg swelling. Negative for chest pain and palpitations. Gastrointestinal: Positive for diarrhea. Negative for abdominal pain. Genitourinary: Positive for dysuria and frequency. Negative for flank pain. Skin: Positive for color change. Neurological: Positive for weakness. Negative for dizziness and syncope. Psychiatric/Behavioral: Positive for dysphoric mood. Negative for sleep disturbance. Physical Exam: Filed Vitals: 03/21/24 1311 BP: 102/60 Pulse: 60 Weight: 64.6 kg (142 lb 5 oz) Physical Exam Constitutional: Comments: SEATED IN WHEELCHAIR HENT: Head: Normocephalic. Eyes: Pupils: Pupils are equal, round, and reactive to light. Cardiovascular: Rate and Rhythm: Normal rate and regular rhythm. Comments: Chronic violaceous changes Boot in place below right knee Pulmonary: Effort: Pulmonary effort is normal. Breath sounds: Normal breath sounds. Abdominal: General: Bowel sounds are normal. Palpations: Abdomen is soft. Tenderness: There is no abdominal tenderness. Musculoskeletal: General: Normal range of motion. Cervical back: Normal range of motion. Right lower le+ Edema present. Left lower le+ Edema present. Skin: Comments: DECUBITUS ULCER- STAGE 2 DRESSING APPLIED TODAY Neurological: General: No focal deficit present. Mental Status: She is alert and oriented to person, place, and time. Motor: Weakness present. Gait: Gait abnormal. Psychiatric: Mood and Affect: Mood normal. Behavior: Behavior normal. Thought Content: Thought content normal. Judgment: Judgment normal. Assessment and Plan: 1. Recurrent UTI D/t neurogenic bladder requiring self cath 6 times daily She has not self cathed in the last month because she is out of self cath supplies. Urology referral has been made as she has missed her appts in the past due to admission to hospital. - URINALYSIS, POINT OF CARE - CULTURE, URINE, QUANTITATIVE 2. History of sepsis Hospitalized in Early January for Bacteremia and Fungemia IJ port was removed 02-09-2024 3. Coronary artery disease involving salamatof coronary artery of salamatof heart without angina pectoris Hx NSTEMI No anginal symptoms 4. HTN, goal below 140/90 stable 5. Pressure injury of sacral region, stage 2 (HCC) Evaluated today and stage 2, dressing applied. Home health to change for patient. The patient requires positioning every 2 hours to alleviate pressure due to pressure ulcer of sacrum. Ordered hospital bed and pressure reducing pad for chair/bed. 6. Paroxysmal A-fib (HCC) NSR today On eliquis Rate controlled 7. Multiple sclerosis (HCC) Progressively worsening debility 8. Anemia of chronic disease Chronic but stable Continue follow up with hematology 9. Debility Chronic Requires a minimum assist of 1 with ADLs Needs hospital bed due to severe debility. 10. History of pulmonary embolism On eliquis I have advised the patient to call our office incase of any worsening or new symptoms. I spent a total of 40-54 minutes (exact time 54 mins) on the date of service in preparation, delivery, and documentation of the care provided to Kandy Shelby excluding any time spent in the performance of separately billed services. Kirstin, MSN, KEVIN [facility] documented in this encounter Plan of Treatment Upcoming Encounters Date Type Department Care Team (Late st Contact Info) Description 04/17/2024 3:00 PM EDT Office Visit [facility] [address] [place] [address] Simi Hernandez CRNP [address] [place] [address] 05/15/2024 3:00 PM EDT Office Visit [facility] [address] [place] [address] Simi Hernandez CRNP [address] [facility] [place] [address] 05/16/2024 9:30 AM EDT Office Visit Urology Kirstie Avina [address] [place] [address] [place] [address] Elba Morales PA-C [address] [place] [address] [place] [address] 05/24/2024 1:40 PM EDT Office Visit Dermatology [facility] [address] [place] [address] Lisa Garcia PA-C [address] [facility] [place] [address] 06/21/2024 1:40 PM EDT Office Visit [facility] [address] [facility] [place] [address] Simi Hernandez CRNP [address] [place] [address] 06/25/2024 3:00 PM EDT Office Visit Cardiology, [facility] [address] [place] [address] Camille Cuevas PA-C [address] [place] [address] 06/25/2024 3:30 PM EDT Cardiac Studies Cardiac Studies, [facility] [address] [place] [address] 07/19/2024 1:40 PM EDT Office Visit [facility] [address] [place] [address] Simi Hernandez CRNP [address] [place] [address] 08/22/2024 3:00 PM EDT Office Visit [facility] [address] [place] [address] Simi Hernandez CRNP [address] [place] [address] 09/26/2024 3:00 PM EDT Office Visit [facility] Practice [facility] [address] [place] [address] Simi Hernandez CRNP [address] [place] [address] 10/09/2024 10:00 AM EST Office Visit [facility] [address] [place] [address] Hannah Nicolas MD [address] [facility], [place] [address] 10/23/2024 3:00 PM EST Office Visit [facility] [address] [place] [address] Simi Hernandez CRNP [address] [place] [address] 11/23/2024 3:00 PM EST Office Visit [facility] [address] [place] [address] Simi Hernandez CRNP [address] [place] [address] Scheduled Procedures Name Priority Associated Diagnoses Date/Ti me COLONOSCOPY FLEXIBLE PROXIMAL DIAGNOSTIC Recall Screen for colon cancer Scheduled Referrals Name Type Priority Associated Diagnoses Orde r Schedule ADULT/PEDS UROLOGY REFERRAL OP Referral Within 3 days (urgent) Recurrent UTI Ordered: 03/22/2024 Health Maintenance Due Date Last Done Comments [...] 02/22/2024, Additional history exists Colonoscopy 05/05/2028 05/05/2023, 06/0 06/2023, 11/04/2022, Additional history exists Colorectal Cancer Screening 05/05/2028 VITAMIN D LEVEL ONCE IN A LIFETIME-USE SMARTSET# [id number] Completed 01/17/2023, 04/05/2022, 04/28/2021, Additional history exists [...] Procedure Name Priority Date/Time Associated Diagnosis Comments CULTURE, URINE, QUANTITATIVE Routine 03/21/2024 2:48 PM EDT Recurrent UTI URINALYSIS, POINT OF CARE Routine 03/21/2024 2:44 PM EDT Recurrent UTI documented in this encounter Results * CULTURE, URINE, QUANTITATIVE (03/21/2024 2:48 PM EDT) Culture Growth Multiple carmel suggests contamination or colonization 03/23/2024 1:40 PM EDT LABORATORY [facility] Urine Urine specimen obtained by clean catch procedure / Unknown Non-blood Collection / Unknown 03/21/2024 2:48 PM EDT 03/21/2024 3:28 PM EDT Simi BROWN LAB MICRO - GE NERAL ORDERABLES LABORATORY [facility] [address] [place] [address] * (ABNORMAL) URINALYSIS, POINT OF CARE (03/21/2024 2:44 PM EDT) Color, Urine Dark Yellow(A) Light Yellow, Yellow 03/21/2024 2:47 PM EDT LAB[facility] [place] [facility] Clarity, Urine Cloudy(A) Clear 03/21/2024 2:47 PM EDT LAB[facility]ATORY [place] [facility] Glucose, Urine Negative Negative mg/dL 03/21/2024 2:47 PM EDT LAB[facility]ATORY [place] [facility] Bilirubin, Urine Small(A) Negative 03/21/2024 2:47 PM EDT LAB[facility]ORY [place] [facility] Ketone, Urine Negative Negative mg/dL 03/21/2024 2:47 PM EDT LAB[facility]ORY [place] [facility] Specific [place], Urine 1.025 1.003 - 1.030 03/21/2024 2:47 PM EDT LAB[facility]ORY [place] [facility] Blood, Urine Trace-intact (A) Negative 03/21/2024 2:47 PM EDT [facility] [place] [facility] pH, Urine 5.5 5.0, 5.5, 6.0, 6.5, 7.0, 7.5 units 03/21/2024 2:47 PM EDT LAB[facility]ATORY [place] [facility] Protein, Urine Negative Negative mg/dL 03/21/2024 2:47 PM EDT LAB[facility] [place] [facility] Urobilinogen, Urine 0.2 0.2, 1.0 mg/dL 03/21/2024 2:47 PM EDT LAB[facility] [place] [facility] Nitrite, Urine Negative Negative 03/21/2024 2:47 PM EDT [facility]ORY [place] [facility] Esterase, Urine Trace(A) Negative 03/21/2024 2:47 PM EDT LAB[facility]ORY [place] [facility] Urine 03/21/2024 2:44 PM EDT 03/21/2024 2:47 PM EDT Simi BROWN LAB POINT OF C ARE TEST DOCKED DEVICE UNSOLICITED RESULTS LAB[facility]ATORY [place] [facility] [address] [facility] [place] [address] documented in this encounter Visit Diagnoses Diagnosis Recurrent UTI- Primary Urinary tract infection, site not specified History of sepsis Personal history of other infectious and parasitic disease Coronary artery disease involving salamatof coronary artery of salamatof heart without angina pectoris HTN, goal below 140/90 Unspecified essential hypertension Pressure injury of sacral region, stage 2 (HCC) Paroxysmal A-fib (HCC) Atrial fibrillation Multiple sclerosis (HCC) Multiple sclerosis Anemia of chronic disease Anemia of other chronic disease Debility Debility, unspecified History of pulmonary embolism Personal history of pulmonary embolism Neurogenic bladder Neurogenic bladder, NOS documented in this encounter Advance Directives Latest [...] were consensually agreed upon. Care Teams Edge Sander Relationship Specialty Start Date End Date Simi Henrandez CRNP [address] [place] [address] PCP - General Nurse Practitioner 10/05/22 documented as of this encounter
--- OUTSIDE RECORDS SUMMARY | 2024-04-15 03:58 | External Medical Summary | Summary of Care ---
Author Name Unknown Organization [facility] Address [address] [place] [address] Phone [phone] Care Team Providers Care Thread Singer Name Role Phone Simi Hernandez Primary Care Provider Reason for Visit * Reason Onset Date Comments Health Maintenance 04/06/2024 Encounter Details Date Type Department Care Team (Late st Contact Info) Description 04/06/2024 Telephone Family Practice [facility] [address] [facility] [place] [address] Simi Hernandez CRNP [address] [facility] [place] [address] Health Maintenance Allergies No known active allergiesdocumented as of [...] 1 Tablet before bedtime. 0 02/27/2024 Active documented as of this encounter (statuses [...] Debility 11/05/2022 Coronary artery disease invo lving hughes coronary artery of hughes heart without angina pectoris 11/05/2022 Medical home [...] nasal dorsum 09/2019, SCCIS L cheek 04/2018 ([facility]) Anemia of chronic disease 03/16/2018 High [...] mRNA, LNP-s, No Pre serve, 2-Dose Series ([employer]) 04/18/2022,11/12/2021,01/28/2021,01/14 PPD 06/05/2018 Pneumococcal Conjugate Vacc, 13 [...] encounter Miscellaneous Notes * Telephone Encounter - Crista Nuñez YARON - 04/06/2024 8:03 AM EDT Care Gaps Comprehensive Care Outreach Last Office/Telemedicine Visit: 03/21/2024 (in office), Visit date not found (telemedicine) Next Office Visit: 04/17/2024 Hemoglobin AIC Results: Lab Results Component Value Date/Time HEMOGLOBIN A1C - [facility] 5.5 05/07/2015 02:45 PM BP Readings from Last 1 Encounters: 03/23/24 130/76 Reviewed Health Maintenance below: Health Maintenance Topic Date Due Albumin/Creatinine Ratio Never done DTaP,Tdap,and Td Vaccines (2 - Td or Tdap) 04/30/2019 DXA Scan 05/15/2020 *BISPHONATE OR OTHER ACCEPTABLE MEDICATION NEEDED FOR OSTEOPOROSIS (REFER TO SMARTSET #1146) Never done Pneumococcal Vaccine: 65+ Years (3 of 3 - PPSV23 or PCV20) 09/24/2020 COVID-19 Vaccine ( - season) 2023 Mammogram 04/15/2024 Dexa Mamm april 15 Urine already ordered Care Gap Outreach Action Taken: Unable to reach and MyChart message sent documented in this encounter Plan of Treatment Upcoming Encounters Date Type Department Care Team (Late st Contact Info) Description 04/10/2024 8:00 AM EDT Office Visit [facility] Surgery [facility] [address] [place] [address] Radha Boogie MD [address] [facility] [place] [address] 04/17/2024 3:00 PM EDT Office Visit [facility] [address] [place] [address] Simi Hernandez CRNP [address] [place] [address] 05/15/2024 3:00 PM EDT Office Visit [facility] [address] [place] [address] Simi Hernandez CRNP [address] [place] [address] 05/16/2024 9:30 AM EDT Office Visit Urology Kirstie Avina [address] [place] [address] [place] [address] Elba Morales PA-C [address] [place] [address] [place] [address] 05/24/2024 1:40 PM EDT Office Visit Dermatology [facility] [address] [facility] [place] [address] Lisa Garcia PA-C [address] [facility] [place] [id number] 06/21/2024 1:40 PM EDT Office Visit Family Practice [facility] [address] [place] [address] Simi Hernandez CRNP [address] [place] [address] 06/25/2024 3:00 PM EDT Office Visit Cardiology, [facility] [address] [place] [address] Camille Cuevas PA-C [address] [place] [address] 06/25/2024 3:30 PM EDT Cardiac Studies Cardiac Studies, [facility] [address] [place] [address] 07/19/2024 1:40 PM EDT Office Visit [facility] [address] [place] [address] Simi Hernandez CRNP [address] [place] [address] 08/22/2024 3:00 PM EDT Office Visit [facility] [address] [place] [address] Simi Hernandez CRNP [address] [place] [address] 09/26/2024 3:00 PM EDT Office Visit [facility] Practice [facility] [address] [place] [address] Simi Hernandez CRNP [address] [place] [address] 10/23/2024 3:00 PM EST Office Visit [facility] Practice [facility] [address] [place] [address] Simi Hernandez CRNP [address] [place] [address] 11/23/2024 3:00 PM EST Office Visit Family Practice [facility] [address] [place] [address] Simi Hernandez CRNP [address] [place] [address] Scheduled Procedures Name Priority Associated Diagnoses Date/Ti [...] 02/22/2024, Additional history exists Colonoscopy 05/05/2028 05/05/2023, 06/2023, 11/04/2022, Additional history exists Colorectal Cancer Screening 05/05/2028 VITAMIN D LEVEL ONCE IN A LIFETIME-USE SMARTSET# [id number] Completed 01/17/2023, 04/05/2022, 04/28/2021, Additional history exists [...] and were consensually agreed upon. Care Teams Thread Singer Relationship Specialty Start Date End Date Simi Hernandez CRNP [address] [place] [address] PCP - General Nurse Practitioner 10/05/22 documented as of this encounter
--- OUTSIDE RECORDS SUMMARY | 2024-04-15 03:58 | External Medical Summary | Summary of Care ---
Author Name Unknown Organization [facility] Address [address] [place] [address] Phone [phone] Care Team Providers Care Medical Office Asst Name Role Phone Simi Hernandez Primary Care Provider Reason for Referral * Evaluate & Treat - Unlimited Visits (Within 3 days (urgent)) - Authorized Specialty Diagnoses / Procedures Referred By Kenya soliz Referred To Contact Urology Diagnoses Recurrent UTI Simi Hernandez CRNP [address] [place] [address] Referral ID Status Reason Start Date Expiration Date Visits Requested Visits Authorized [id number] Authorized Specialty Services Required 03/22/2024 999 999 [...] 03/21/2024 1:00 PM EDT Office Visit Family [facility] [address] [place] [address] Simi Hernandez CRNP [address] [place] [address] Recurrent UTI*; History of sepsis; Coronary artery disease involving chilkoot coronary artery of chilkoot heart without angina pectoris; HTN, goal below [...] Debility 11/05/2022 Coronary artery disease invo lving chilkoot coronary artery of chilkoot heart without angina pectoris 11/05/2022 Medical home [...] mRNA, LNP-s, No Pre serve, 2-Dose Series ([employer]) 04/18/2022,11/12/2021,01/28/2021,01/14 PPD 06/05/2018 Pneumococcal Conjugate Vacc, 13 [...] for follow up. She was hospitalized AT [facility]. She went to [facility] x [address] [facility]. Patient states that her daughters are [...] osteomyelitis-Andrea Velasco DPM CARDIAC CATH-CARDIOLOGY ONLY 07/06/2021 [facility] COLONOSCOPY, DIAGNOSTIC (RECTUM) polyp removed not retrieved / INPT [facility] COLONOSCOPY, DIAGNOSTIC (RECTUM) 01/26/2018 poor prep, repeat / INPT [facility] COLONOSCOPY, DIAGNOSTIC (RECTUM) N/A 11/04/2022 poor prep/non-bleeding internal hemorrhoids/recall 3 months/Colonoscopy/[place] COLONOSCOPY, DIAGNOSTIC (RECTUM) 05/05/2023 normal, repeat 5 yrs / COLONOSCOPY FLEXIBLE PROXIMAL DIAGNOSTIC performed by Blanche Chi DO at ENDOSCOPY [facility] CYSTOURETHROSCOPY, INJ FOR CHEMODENERVATION 03/29/2014 CYSTOURETHROSCOPY, INJ FOR CHEMODENERVATION performed by Hannah Milner MD at OR [facility] CYSTOURETHROSCOPY, INJ FOR CHEMODENERVATION 05/22/2015 EGD, FLEXIBLE, DIAGNOSTIC 01/25/2018 normal bx/[facility] EGD, FLEXIBLE, DIAGNOSTIC 04/30/2020 reflux esophagitis, gastric ulcer, repeat 2 mo / [facility] EGD, FLEXIBLE, DIAGNOSTIC 06/18/2020 gastric diverticulum, gastric irritation & ulceration, repeat 3-6 mo / [facility] EGD, FLEXIBLE, DIAGNOSTIC 03/19/2021 erosive gastritis, hiatal hernia / [facility] EGD, FLEXIBLE, DIAGNOSTIC 02/19/2022 erosive gastritis, hiatal hernia / [facility] EGD, FLEXIBLE, DIAGNOSTIC N/A 11/04/2022 large hiatal hernia/gastric diverticulum/EGD/[facility] TOOTH REMOV PART BONY (2) upper wisdom teeth removed IMPLANT/REPLACE SPINE INFUSION PUMP 07/2022 [facility] MASTECTOMY, MODIFIED RADICAL 09/2001 left breast- Dr. Ibrahim PAIN MANAGEMENT CATH 03/13/2009 Medtronic Baclofen pump- Dr. Shabazz- [facility] PARTIAL HIP REPLACEMENT & PROSTH left PARTIAL HYSTERECTOMY approx 1991 Ovaries remain in RECONSTRUCT/REPLACE SHOULDER JOINT Right 05/25/2022 Reverse total shoulder--Thad REMOVAL OF APPENDIX 06/25/[address] Johnson [facility] 06/25/2009 REPAIR THIGH FRACTURE, W/IMPLANT 10/2006 Hip ORIF- left hip Dr. Morales REVERSE TOTAL SHOULDER ARTHROPLASTY Right 05/25/2022 Dr. Oneil [facility] SACROILIAC JOINT INJECT W/GUIDANCE 08/17/2018 INJECTION SACROILIAC JOINT performed by Ulises Tran, at OR [facility] SACROILIAC JOINT INJECT W/GUIDANCE 10/09/2018 INJECTION SACROILIAC JOINT performed by Ulises Tran, DO at OR [facility] SACROILIAC JOINT INJECT W/GUIDANCE 02/01/2019 INJECTION SACROILIAC JOINT performed by Ulises Tran, DO at OR [facility] No outpatient medications have been marked as taking for the 03/21/24 encounter (Appointment) with Simi Hernandez CRNP. Review of patient's allergies indicates: No Known Allergies Most Recent Immunizations Administered Date(s) Administered COVID-19 mRNA, LNP-s, No Preserve, 2-Dose Series ([employer]) 04/18/2022 Denosumab 01/03/2019 PPD 06/05/2018 Pneumococcal Conjugate [...] removed 02-09-2024 3. 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 Kirstin, MSN, KEVIN [facility] documented in this encounter Plan of Treatment Upcoming Encounters Date Type Department Care Team (Late st Contact Info) Description 04/17/2024 3:00 PM EDT Office Visit [facility] [address] [place] [address] Simi Hernandez CRNP [address] [place] [address] 05/15/2024 3:00 PM EDT Office Visit [facility] [address] [place] [address] Simi Hernandez CRNP [address] [facility] [place] [address] 05/16/2024 9:30 AM EDT Office Visit Urology Kirstie Avina [address] [place] [address] [place] [address] Elba Morales PA-C [address] [place] [address] [place] [address] 05/24/2024 1:40 PM EDT Office Visit Dermatology [facility] [address] [place] [address] Lsia Garcia PA-C [address] [facility] [place] [address] 06/21/2024 1:40 PM EDT Office Visit [facility] [address] [facility] [place] [address] Simi Hernandez CRNP [address] [place] [address] 06/25/2024 3:00 PM EDT Office Visit Cardiology, [facility] [address] [place] [address] Camille Cuevas PA-C [address] [place] [address] 06/25/2024 3:30 PM EDT Cardiac Studies Cardiac Studies, [facility] [address] [place] [address] 07/19/2024 1:40 PM EDT Office Visit [facility] [address] [place] [address] Simi Hernandez CRNP [address] [place] [address] 08/22/2024 3:00 PM EDT Office Visit [facility] [address] [place] [address] Simi Hernandez CRNP [address] [place] [address] 09/26/2024 3:00 PM EDT Office Visit [facility] Practice [facility] [address] [place] [address] Simi Hernandez CRNP [address] [place] [address] 10/09/2024 10:00 AM EST Office Visit [facility] Surgery [facility] [address] [place] [address] Hannah Nicolas MD 200 [facility], [place] [address] 10/23/2024 3:00 PM EST Office Visit [facility] [address] [place] [address] Simi Hernandez CRNP [address] [place] [address] 11/23/2024 3:00 PM EST Office Visit [facility] [address] [place] [address] Simi Hernandez CRNP [address] [place] [address] Scheduled Procedures Name Priority Associated Diagnoses Date/Ti [...] D LEVEL ONCE IN A LIFETIME-USE SMARTSET# 18520 Completed 01/17/2023, 04/05/2022, 04/28/2021, Additional history exists [...] or colonization 03/23/2024 1:40 PM EDT LABORATORY [facility] Urine Urine specimen obtained by clean catch procedure / Unknown Non-blood Collection / Unknown 03/21/2024 2:48 PM EDT 03/21/2024 3:28 PM EDT Simi BROWN LAB MICRO - GE NERAL ORDERABLES LABORATORY [facility] [address] [place] [address] * (ABNORMAL) URINALYSIS, POINT OF [...] PM EDT LABORATORY [facility] Specific [place], Urine 1.025 1.003 - 1.030 03/21/2024 2:47 PM EDT LABORATORY [place] [facility]10 Blood, Urine Trace-intact (A) Negative 03/21/2024 2:47 PM EDT LABORATORY [place] [facility] 57-10 pH, Urine 5.5 5.0, 5.5, 6.0, [...] UNSOLICITED RESULTS LABORATORY [place] [facility]-10 [address] [facility] [place] [address] documented in this encounter Visit Diagnoses Diagnosis Recurrent UTI- Primary Urinary tract infection, site not specified History of sepsis Personal history of other infectious and parasitic disease Coronary artery disease involving 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 Care Teams Medical Office Asst Relationship Specialty Start Date End Date Simi Hernandez CRNP [address] [place] [address] PCP - General Nurse Practitioner 10/05/22 documented as of this encounter
--- OUTSIDE RECORDS SUMMARY | 2024-04-15 03:58 | External Medical Summary | Summary of Care ---
Author Name Unknown Organization [facility] Address [address] [place] [address] Phone [phone] Care Team Providers Care Medical Biller Coder Name Role Phone Simi Hernandez Tami BROWN Primary Care Provider Reason for Visit * Reason Onset Date Comments Appointment 04/09/2024 [facility] reschedule Encounter Details Date Type Department Care Team (Late st Contact Info) Description 04/09/2024 Telephone Dermatology [facility] [address] [place] [address] Services, Scheduling [address] [place] [address] Appointment ([facility] reschedule) Allergies No known active allergiesdocumented as of this encounter (statuses as of 04/10/2024) Medications Medication Sig Dispensed Refills Start Date [...] as of this encounter (statuses as of 04/10/2024) Active Problems Problem Noted Date Diagnosed Date [...] Debility 11/05/2022 Coronary artery disease invo lving [place] coronary artery of [place] heart without angina pectoris 11/05/2022 Medical home [...] as of this encounter (statuses as of 04/10/2024) Resolved Problems Problem Noted Date Diagnosed Date [...] as of this encounter (statuses as of 04/10/2024) Immunizations Name Administration Dates Next Due COVID-19 [...] Telephone Encounter - Freida Madrigal OSA - 04/10/2024 10:58 AM EDT Spoke to patient and re scheduled for mohs with Dr Nicolas for 10/09 at 10am - patient does not likeearly morning appt times. Will mail her a mohs packet. * Telephone Encounter - Freida Madrigal OSA - 04/10/2024 8:43 AM EDT A. Skin, rt mu-ism, shave: Basal cell carcinoma, nodular type 04/10/24 LMM to call [phone] to get re scheduled for mohs surgery * Telephone Encounter - Shaye Sargent OSA - 04/09/2024 5:21 PM EDT Patient called and had to cancel her Moh's appointment for 04/10. There was some confusion for the date and time for the appointment on the patient's end. Please contact patient to reschedule at [phone] Thanks MAAME Arteaga documented in this encounter Plan of Treatment Upcoming Encounters Date Type Department Care Team (Late st Contact Info) Description 04/17/2024 3:00 PM EDT Office Visit [facility] [address] [place] [address] Simi Hernandez CRNP [address] [place] [address] 05/15/2024 3:00 PM EDT Office Visit [facility] [address] [place] [address] Simi Hernandez CRNP [address] [place] [address] 05/16/2024 9:30 AM EDT Office Visit Urology Kirstie Avina [address] [place] [address] [place] [address] Elba Morales PA-C [address] [place] [address] [place] [address] 05/24/2024 1:40 PM EDT Office Visit Dermatology [facility] [place] [address] [place] [address] Lisa Garcia PA-C 200 [facility] [place] [address] 06/21/2024 1:40 PM EDT Office Visit [facility] [address] [place] [address] Simi Hernandez CRNP [address] [place] [address] 06/25/2024 3:00 PM EDT Office Visit Cardiology, [facility] [address] [place] [address] Camille Cuevas PA-C [address] [place] [address] 06/25/2024 3:30 PM EDT Cardiac Studies Cardiac Studies, [facility] [address] [place] [address] 07/19/2024 1:40 PM EDT Office Visit Family Practice [facility] [address] [place], [place] [address] Simi Hernandez CRNP [address] [place] [address] 08/22/2024 3:00 PM EDT Office Visit Family Practice [facility] [address] [place] [address] Simi Hernandez CRNP [address] [place] [address] 09/26/2024 3:00 PM EDT Office Visit [facility] Practice [facility] [address] [place] [address] Simi Hernandez CRNP [address] [place] [address] 10/09/2024 10:00 AM EST Office Visit [facility] Surgery [facility] [address] [place] [address] Hannah Nicolas MD 200 [place] [address] 10/23/2024 3:00 PM EST Office Visit [facility] [address] [place] [address] Simi Hernandez CRNP [address] [place] [address] 11/23/2024 3:00 PM EST Office Visit [facility] [address] [place] [address] Simi Hernandez CRNP [address] [place] [address] Scheduled Procedures Name Priority Associated Diagnoses Date/Ti [...] D LEVEL ONCE IN A LIFETIME-USE SMARTSET# [id number] Completed 01/17/2023, 04/05/2022, 04/28/2021, Additional history exists [...] were consensually agreed upon. Care Teams Medical Biller Coder Relationship Specialty Start Date End Date Simi Hernandez CRNP [address] [place] [address] PCP - General Nurse Practitioner 10/05/22 documented as of this encounter
--- OUTSIDE RECORDS SUMMARY | 2024-04-15 03:58 | External Medical Summary | Summary of Care ---
Author Name Unknown Organization [facility] Address [address] [place] [address] Phone [phone] Care Team Providers Care Medical Transcription Radiology Name Role Phone Simi Hernandez Primary Care Provider Reason for Visit * Reason Onset Date Comments Information 03/23/2024 Encounter Details Date Type Department Care Team (Late st Contact Info) Description 03/23/2024 Telephone Family Practice [facility] [address] [facility] [place] [address] Simi Hernandez CRNP 132 [facility] [place] [address] Information Allergies No known active allergiesdocumented as of [...] Debility 11/05/2022 Coronary artery disease invo lving [place] coronary artery of [place] heart without angina pectoris 11/05/2022 Medical [...] mRNA, LNP-s, No Pre serve, 2-Dose Series ([employer] 04/18/2022,11/12/2021,01/28/2021,01/14 PPD 06/05/2018 Pneumococcal Conjugate Vacc, 13 [...] Telephone Encounter - Dottie Bridges RN - 03/27/2024 2:47 PM EDT Called pharmacy to cancel this after speaking with Simi. Unsure what this script was. * Telephone Encounter - Simi Hernandez CRNP - 03/27/2024 12:22 PM EDT I did not order this- not sure what they are referring to, dottie did you or wound care order? Kirstin, ADELSO, KEVIN [facility] * Telephone Encounter - Hannah Abernathy LPN - 03/27/2024 10:25 AM EDT Volaren Gel? * Telephone Encounter - Sima Perez PHARM Tech - 03/23/2024 11:56 AM EDT Pharmacy called stating they are unsure on what Transdermal Pain Base External Cream is and what togive to pt, please advise. Can be reached at [phone] Thank you, Sima Perezenterprise records analyst Wide Area Network Administrator II [facility] (formerly [facility]) 03/23/2024,11:57 AM documented in this encounter Plan of Treatment Upcoming Encounters Date Type Department Care Team (Late st Contact Info) Description 04/10/2024 8:00 AM EDT Office Visit [facility] Surgery [facility] [address] [facility] [place] [address] Radha Boogie MD [address] [place] [address] [place] [address] 04/17/2024 3:00 PM EDT Office Visit [facility] [address] [place] [address] Simi Hernandez CRNP [address] [place] [address] 05/15/2024 3:00 PM EDT Office Visit [facility] [address] [place] [address] Simi Hernandez CRNP [address] [place] [address] 05/24/2024 1:40 PM EDT Office Visit Dermatology [address] [place] [address] Lisa Garcia PA-C [address] [place] [address] [place] [phone] 06/21/2024 1:40 PM EDT Office Visit [facility] [address] [place] [address] Simi Hernandez CRNP [address] [place] [address] 06/25/2024 3:00 PM EDT Office Visit Cardiology, [facility] [address] [place] [address] Camille Cuevas PA-C [address] [place] [address] 06/25/2024 3:30 PM EDT Cardiac Studies Cardiac Studies, [facility] [address] [place] [address] 07/19/2024 1:40 PM EDT Office Visit [facility] [address] [place] [address] Simi Hernandez CRNP [address] [place] [address] 08/22/2024 3:00 PM EDT Office Visit [facility] [address] [place] [address] Simi Hernandez CRNP [address] [place] [address] 09/26/2024 3:00 PM EDT Office Visit [facility] [address] [place] [address] Simi Hernandez CRNP [address] [place] [address] 10/23/2024 3:00 PM EST Office Visit [facility] [address] [place] [address] Simi Hernandez CRNP [address] [place] [address] 11/23/2024 3:00 PM EST Office Visit [facility] [address] [place] [address] Simi Hernandez CRNP [address] [place] [address] Scheduled Procedures Name Priority Associated Diagnoses Date/Ti [...] D LEVEL ONCE IN A LIFETIME-USE SMARTSET# [id number] Completed 01/17/2023, 04/05/2022, 04/28/2021, Additional history exists [...] were consensually agreed upon. Care Teams Medical Transcription Radiology Relationship Specialty Start Date End Date Simi Hernandez CRNP [address] [place] [address] PCP - General Nurse Practitioner 10/05/22 documented as of this encounter
--- OUTSIDE RECORDS SUMMARY | 2024-04-15 03:58 | External Medical Summary | Summary of Care ---
Author Name Unknown Organization [facility] Address [address] [place] [address] Phone [phone] Care Team Providers Care Back End Developer Name Role Phone Simi Hernandez Tami BROWN Primary Care Provider Encounter Details Date Type Department Care Team (Late st Contact Info) Description 04/02/2024 11:30 AM EDT Scheduled Telephone Care Coordination and Integration [address] [place], [place] [id number] Hannah Nash, [facility] Mail Processing Clerk [address] [place], [place] [id number] Allergies No known active allergiesdocumented as of this encounter (statuses as of 04/02/2024) Medications Medication Sig Dispensed Refills Start Date [...] as of this encounter (statuses as of 04/02/2024) Active Problems Problem Noted Date Diagnosed Date [...] Debility 11/05/2022 Coronary artery disease invo lving [place] coronary artery of [place] heart without angina pectoris 11/05/2022 Medical home [...] as of this encounter (statuses as of 04/02/2024) Resolved Problems Problem Noted Date Diagnosed Date [...] as of this encounter (statuses as of 04/02/2024) Immunizations Name Administration Dates Next Due COVID-19 mRNA, LNP-s, No Pre serve, 2-Dose Series ([employer]) 04/18/2022,11/12/2021,01/28/2021,01/14 PPD 06/05/2018 Pneumococcal Conjugate Vacc, 13 [...] Description 04/10/2024 8:00 AM EDT Office Visit [facility] Surgery [facility] [address] [facility] [place] [address] Radha Boogie MD 200 [place] [address] 04/17/2024 3:00 PM EDT Office Visit [facility] 132 [facility] [place] [address] Simi Hernandez CRNP [address] [place] [place] [address] 05/15/2024 3:00 PM EDT Office Visit [facility] [address] [place] [address] Simi Hernandez CRNP [facility] [address] 05/16/2024 9:30 AM EDT Office Visit Urology Kirstie Avina [address] [place] [address] [place] [address] Elba Morales PA-C [address] [place] [address] [place] [address] 05/24/2024 1:40 PM EDT [facility] [address] [place] [address] Lisa Garcia PA-C [address] [place] [phone] 06/21/2024 1:40 PM EDT Office Visit [facility] 132 [facility] [place] [address] Simi Hernandez CRNP 132 [facility] [place] [address] 06/25/2024 3:00 PM EDT Office Visit Cardiology, [facility] 132 [facility] [place] [address] Camille Cuevas PA-C 132 [facility] [place] [address] 06/25/2024 3:30 PM EDT Cardiac Studies Cardiac Studies, [facility] [address] [place] [address] 07/19/2024 1:40 PM EDT Office Visit [facility] 132 [facility] [place] [address] Simi Hernandez CRNP [address] [place] [address] 08/22/2024 3:00 PM EDT Office Visit [facility] [address] [place] [address] Simi Hernandez CRNP [address] [place] [address] 09/26/2024 3:00 PM EDT Office Visit [facility] [address] [place] [address] Simi Hernandez CRNP [address] [place] [address] 10/23/2024 3:00 PM EST Office Visit [facility] [address] [place] [address] Simi Hernandez CRNP [address] [place] [place] [address] 11/23/2024 3:00 PM EST Office Visit [facility] [address] [place] [address] Simi Hernandez CRNP [address] [place] [address] Scheduled Procedures Name Priority Associated Diagnoses Date/Ti [...] or PCV20) 09/24/2020 07/30/2020, 07/05/2011 COVID-19 Vaccine (6 - 2023-24 season) 2023 06/04/2022, 06/04/2022, 04/18/2022, Additional history exists Mammogram 04/15/2024 04/15/2023, 03/28, 12/17/2019, Additional history exists GFR 03/01/2025 03/01/2024, 01/27, 02/22/2024, Additional history exists Colonoscopy 05/05/2028 05/05/2023, 0606/2023, 11/04/2022, Additional history exists Colorectal Cancer Screening 05/05/2028 VITAMIN D LEVEL ONCE IN A LIFETIME-USE SMARTSET# 61240 Completed 01/17/2023, 04/05/2022, 04/28/2021, Additional history exists [...] and were consensually agreed upon. Care Teams Back End Developer Relationship Specialty Start Date End Date Simi Hernandez CRNP [address] [place] [address] PCP - General Nurse Practitioner 10/05/22 documented as of this encounter
--- OUTSIDE RECORDS SUMMARY | 2024-04-15 03:59 | External Medical Summary | Summary of Care ---
Author Name Unknown Organization [facility] Address [address] [place] [address] Phone [phone] Care Team Providers Care Cruller Maker Machine Name Role Phone Simi Hernandez Tami BROWN Primary Care Provider Encounter Details Date Type Department Care Team (Late st Contact Info) Description 03/26/2024 12:45 PM EDT Scheduled Telephone Care Coordination and Integration [address], [place] [id number] Hannah Nash, Community Health Associate Store Director [address], [place] [phone] Allergies No known active allergiesdocumented as of this encounter (statuses as of 03/26/2024) Medications Medication Sig Dispensed Refills Start Date [...] as of this encounter (statuses as of 03/26/2024) Active Problems Problem Noted Date Diagnosed Date [...] Debility 11/05/2022 Coronary artery disease invo lving [place] coronary artery of [place] heart without angina pectoris 11/05/2022 Medical home patient encounter 09/30/2022 S/P shoulder replacement, right 09/07/2022 ESBL E. coli carrier 09/07/2022 Presence of intrathecal baclofen pump 09/07/2022 History of [place] (myocardial infarction) 05/12/2022 Mass of chest wall, [...] as of this encounter (statuses as of 03/26/2024) Resolved Problems Problem Noted Date Diagnosed Date [...] as of this encounter (statuses as of 03/26/2024) Immunizations Name Administration Dates Next Due COVID-19 mRNA, LNP-s, No Pre serve, 2-Dose Series (MessageGears) 04/18/2022,11/12/2021,01/28/2021,01/14 PPD 06/05/2018 Pneumococcal Conjugate Vacc, 13 [...] Care Team (Late st Contact Info) Description 03/26/2024 2:45 PM EDT Office Visit Urology Kirstie Avina [address] [place] [address] [place] [address] Beau Coon MD [address] [place] [address] [place] [address] 04/10/2024 8:00 AM EDT Office Visit [facility] Surgery [facility] [address] [place] [address] Radha Boogie MD [address] [place] [address] 04/17/2024 3:00 PM EDT Office Visit Family Practice [facility] [address] [address] Simi Hernandez CRNP [address] [address] 05/15/2024 3:00 PM EDT Office Visit [facility] [address] [place] [address] Simi Hernandez CRNP [address] [place] [address] 05/24/2024 1:40 PM EDT Office Visit Dermatology [facility] [address] [place] [address] Lisa Garcia PA-C [address] [place] [phone] 06/21/2024 1:40 PM EDT Office Visit [facility] [address] [place] [address] Simi Hernandez CRNP [address] [place] [address] 06/25/2024 3:00 PM EDT Office Visit Cardiology, [facility] [address] [place] [address] Camille Cuevas PA-C [address] [place] [address] 06/25/2024 3:30 PM EDT Cardiac Studies Cardiac Studies, [facility] [address] [place] [address] 07/19/2024 1:40 PM EDT Office Visit [facility] [address] [place] [address] Simi Hernandez CRNP [address] [place] [address] 08/22/2024 3:00 PM EDT Office Visit [facility] [address] [place] [address] Simi Hernandez CRNP [address] [place], [place] [address] 09/26/2024 3:00 PM EDT Office Visit [facility] [address] [place] [address] Simi Hernandez CRNP [address] [place] [address] 10/23/2024 3:00 PM EST Office Visit [facility] [address] [place] [address] Simi Hernandez CRNP [address] [place] [address] 11/23/2024 3:00 PM EST Office Visit [facility] [address] [place] [address] Simi Hernandez CRNP [address] [place] [address] Scheduled Procedures Name Priority Associated Diagnoses Date/Ti [...] D LEVEL ONCE IN A LIFETIME-USE SMARTSET# 70668 Completed 01/17/2023, 04/05/2022, 04/28/2021, Additional history exists [...] and were consensually agreed upon. Care Teams Cruller Maker Machine Relationship Specialty Start Date End Date Simi Hernandez CRNP [address] [place] [address] PCP - General Nurse Practitioner 10/05/22 documented as of this encounter
--- OUTSIDE RECORDS SUMMARY | 2024-04-15 03:59 | External Medical Summary | Summary of Care ---
Author Name Unknown Organization [facility] Address [address] [place] [address] Phone [phone] Care Team Providers Care Break And Load Operator Name Role Phone Simi Hernandez Primary Care Provider Reason for Referral * Evaluate & Treat - Unlimited Visits (Within 3 days (urgent)) - Authorized Specialty Diagnoses / Procedures Referred By Kenya soliz Referred To Contact Urology Diagnoses Recurrent UTI Simi Hernandez CRNP [address] [place] [address] Referral ID Status Reason Start Date Expiration Date Visits Requested Visits Authorized [id number] Authorized Specialty Services Required 03/22/2024 999 999 [...] 03/21/2024 1:00 PM EDT Office Visit Family [facility] [address] [place] [address] Simi Hernandez CRNP [address] [place] [address] Recurrent UTI*; History of sepsis; Coronary artery disease involving bois forte coronary artery of bois [place] heart without angina pectoris; HTN, goal below [...] before bedtime. 0 09/30/2023 4 Discontinu ed(Refill) documented as of this encounter (statuses as [...] Debility 11/05/2022 Coronary artery disease invo lving bois [place]te coronary artery of bois [place]te heart without angina pectoris 11/05/2022 Medical home [...] for follow up. She was hospitalized AT [facility]. She went to [facility] x 2 weeks then discharged [facility]. Patient states that her daughters are involved [...] performed by Andrea Stanford MD at OR [facility] BONE DEBRIDEMENT, FIRST 20 CM2 Right 05/12/2023 R lateral ankle osteomyelitis-Andrea Velasco DPM CARDIAC CATH-CARDIOLOGY ONLY 07/06/2021 [facility] COLONOSCOPY, DIAGNOSTIC (RECTUM) polyp removed not retrieved / INPT [facility] COLONOSCOPY, DIAGNOSTIC (RECTUM) 01/26/2018 poor prep, repeat / INPT [facility] COLONOSCOPY, DIAGNOSTIC (RECTUM) N/A 11/04/2022 poor prep/non-bleeding internal hemorrhoids/recall 3 months/Colonoscopy/DC COLONOSCOPY, DIAGNOSTIC (RECTUM) 05/05/2023 normal, repeat 5 yrs / COLONOSCOPY FLEXIBLE PROXIMAL DIAGNOSTIC performed by Blanche Chi DO at ENDOSCOPY [facility] CYSTOURETHROSCOPY, INJ FOR CHEMODENERVATION 03/29/2014 CYSTOURETHROSCOPY, INJ FOR CHEMODENERVATION performed by Hannah Milner MD at OR [facility] CYSTOURETHROSCOPY, INJ FOR CHEMODENERVATION 05/22/2015 EGD, FLEXIBLE, DIAGNOSTIC 01/25/2018 normal bx/[facility] EGD, FLEXIBLE, DIAGNOSTIC 04/30/2020 reflux esophagitis, gastric ulcer, repeat 2 mo / [facility] EGD, FLEXIBLE, DIAGNOSTIC 06/18/2020 gastric diverticulum, gastric irritation & ulceration, repeat 3-6 mo / [facility] EGD, FLEXIBLE, DIAGNOSTIC 03/19/2021 erosive gastritis, hiatal hernia / [facility] EGD, FLEXIBLE, DIAGNOSTIC 02/19/2022 erosive gastritis, hiatal hernia / [facility] EGD, FLEXIBLE, DIAGNOSTIC N/A 11/04/2022 large hiatal hernia/gastric diverticulum/EGD/[facility] TOOTH REMOV PART BONY (2) upper wisdom teeth removed IMPLANT/REPLACE SPINE INFUSION PUMP 07/2022 [facility] MASTECTOMY, MODIFIED RADICAL 09/2001 left breast- Dr. Ibrahim PAIN MANAGEMENT CATH 03/13/2009 Medtronic Baclofen pump- Dr. Shabazz- [facility] PARTIAL HIP REPLACEMENT & PROSTH left PARTIAL HYSTERECTOMY approx 1991 Ovaries remain in RECONSTRUCT/REPLACE SHOULDER JOINT Right 05/25/2022 Reverse total shoulder--Thad REMOVAL OF APPENDIX 06/25/[address] Johnson [facility] 06/25/2009 REPAIR THIGH FRACTURE, W/IMPLANT 10/2006 Hip ORIF- left hip Dr. Morales REVERSE TOTAL SHOULDER ARTHROPLASTY Right 05/25/2022 Dr. Oneil [facility] SACROILIAC JOINT INJECT W/GUIDANCE 08/17/2018 INJECTION SACROILIAC JOINT performed by Ulises Tran DO at OR [facility] SACROILIAC JOINT INJECT W/GUIDANCE 10/09/2018 INJECTION SACROILIAC JOINT performed by Ulises Tran DO at OR [facility] SACROILIAC JOINT INJECT W/GUIDANCE 02/01/2019 INJECTION SACROILIAC JOINT performed by Ulises Tran, at OR [facility] No outpatient medications have been marked as taking for the 03/21/24 encounter (Appointment) with Simi Hernandez CRNP. Review of patient's allergies indicates: No Known Allergies Most Recent Immunizations Administered Date(s) Administered COVID-19 mRNA, LNP-s, No Preserve, 2-Dose Series (Specpage) 04/18/2022 Denosumab 01/03/2019 PPD 06/05/2018 Pneumococcal Conjugate [...] removed 02-09-2024 3. Coronary artery disease involving bois forte coronary artery of bois forte heart without angina pectoris Hx NSTEMI No [...] a minimum assist of 1 with ADLs 10. History of pulmonary embolism On eliquis [...] of separately billed services. Kirstin, MSN, KEVIN [facility] documented in this encounter Plan of Treatment Upcoming Encounters Date Type Department Care Team (Late st Contact Info) Description 04/10/2024 8:00 AM EDT Office Visit [facility] [address] [facility] [address] Radha Boogie MD 200 [facility] [place] [address] 04/17/2024 3:00 PM EDT Office Visit [facility] [address] [place] [address] Simi Hernandez CRNP [address] [place] [address] 05/15/2024 3:00 PM EDT Office Visit [facility] [address] [place] [address] Simi Hernandez CRNP [address] [place] [address] 05/24/2024 1:40 PM EDT Office Visit Dermatology [facility] [address] [facility] [place] [address] Lisa Garcia PA-C 200 [facility] [place] [phone] 06/21/2024 1:40 PM EDT Office Visit [facility] [address] [place] [address] Simi Hernandez CRNP [address] [place] [address] 06/25/2024 3:00 PM EDT Office Visit Cardiology, [facility] [address] [place] [address] Camille Cuevas PA-C [address] [place] [address] 06/25/2024 3:30 PM EDT Cardiac Studies Cardiac Studies, [facility] [address] [place] [address] 07/19/2024 1:40 PM EDT Office Visit [facility] [address] [place] [address] Simi Hernandez CRNP [address] [place] [address] 08/22/2024 3:00 PM EDT Office Visit [facility] [address] [place] [address] Simi Hernandez CRNP [address] [place] [address] 09/26/2024 3:00 PM EDT Office Visit [facility] [address] [place] [address] Simi Hernandez CRNP [address] [place] [address] 10/23/2024 3:00 PM EST Office Visit [facility] [address] [place] [address] Simi Hernandez CRNP [address] [place] [address] 11/23/2024 3:00 PM EST Office Visit [facility] [address] [place] [address] Simi Hernandez CRNP [address] [place] [address] Scheduled Procedures Name Priority Associated Diagnoses Date/Ti [...] or PCV20) 09/24/2020 07/30/2020, 07/05/2011 COVID-19 Vaccine (2022- season) 2023 06/04/2022, 06/04/2022, 04/18/2022, Additional history exists Mammogram 04/15/2024 04/15/2023, 03/28, 12/17/2019, Additional history exists GFR 03/01/2025 03/01/2024, 01/27, 02/22/2024, Additional history exists Colonoscopy 05/05/2028 05/05/2023, 06/2023, 11/04/2022, Additional history exists Colorectal Cancer Screening 05/05/2028 VITAMIN D LEVEL ONCE IN A LIFETIME-USE SMARTSET# [id number] Completed 01/17/2023, 04/05/2022, 04/28/2021, Additional history exists [...] or colonization 03/23/2024 1:40 PM EDT LABORATORY [facility] Urine Urine specimen obtained by clean catch procedure / Unknown Non-blood Collection / Unknown 03/21/2024 2:48 PM EDT 03/21/2024 3:28 PM EDT Simi Tami BROWN LAB MICRO - GE NERAL ORDERABLES LABORATORY [facility] [address] [place] [address] * (ABNORMAL) URINALYSIS, POINT OF [...] PM EDT LABORATORY [facility] 57-10 Specific [place], Urine 1.025 1.003 - 1.030 03/21/2024 2:47 [...] TEST DOCKED DEVICE UNSOLICITED RESULTS LABORATORY [facility] 57-10 [address] [place] [address] documented in this encounter Visit Diagnoses Diagnosis Recurrent UTI- Primary Urinary tract infection, site not specified History of sepsis Personal history of other infectious and parasitic disease Coronary artery disease involving bois forte coronary artery of bois forte heart without angina pectoris HTN, goal below [...] and were consensually agreed upon. Care Teams Break And Load Operator Relationship Specialty Start Date End Date Simi Hernandez CRNP [address] [place] [address] PCP - General Nurse Practitioner 10/05/22 documented as of this encounter
--- OUTSIDE RECORDS SUMMARY | 2024-04-15 03:59 | External Medical Summary | Summary of Care ---
Author Name Unknown Organization [facility] Address [address] [place] [address] Phone [phone] Care Team Providers Care Lead Business Analyst Name Role Phone David Simi BROWN Primary Care Provider Encounter Details Date Type Department Care Team (Late st Contact Info) Description 02/03/2024 Result Scan Unspecified Department <No scans attached> Allergies No known active allergiesdocumented as of [...] Debility 11/05/2022 Coronary artery disease invo lving flandreau coronary artery of flandre[place] heart without angina pectoris 11/05/2022 Medical home patient encounter 09/30/2022 S/P shoulder replacement, right 09/07/2022 ESBL E. coli carrier 09/07/2022 Presence of intrathecal baclofen pump 09/07/2022 History of [place] (myocardial infarction) 05/12/2022 Mass of chest wall, [...] mRNA, LNP-s, No Pre serve, 2-Dose Series (nuMVC) 04/18/2022,11/12/2021,01/28/2021,01/14 PPD 06/05/2018 Pneumococcal Conjugate Vacc, 13 [...] Telephone Care Coordination and Integration [address] [place] [address] Hannah Nash, Community Health Maintenance Mechanic Engine [address] [place] [address] 03/26/2024 2:45 PM EDT Office Visit Urology Kirstie Avina [address] [place] [address] [place] [address] Beau Coon MD [address] [place] [address] [place] [address] 04/10/2024 8:00 AM EDT Office Visit [facility] Surgery [facility] 200 [place] [address] Radha Boogie MD 200 [facility] [place] [address] 04/17/2024 3:00 PM EDT Office Visit [facility] [address] [address] Simi Hernandez CRNP [address] [place] [address] 05/15/2024 3:00 PM EDT Office Visit [facility] [address] [place] [address] Simi Hernandez CRNP [address] [address] 05/24/2024 1:40 PM EDT Office Visit Dermatology [address] [place] [address] Lisa Garcia PA-C 200 [facility] [place] [phone] 06/21/2024 1:40 PM EDT Office Visit [facility] Practice [facility] [address] [place], [place] [address] Simi Hernandez CRNP [address] [place] [address] 06/25/2024 3:00 PM EDT Office Visit Cardiology, [facility] [address] [place] [address] Camille Cuevas PA-C [address] [place] [address] 06/25/2024 3:30 PM EDT Cardiac Studies Cardiac Studies, [facility] [address] [place] [address] 07/19/2024 1:40 PM EDT Office Visit [facility] [address] [place] [address] Simi Hernandez CRNP [address] [place] [address] 08/22/2024 3:00 PM EDT Office Visit [facility] [address] [place] [address] Simi Hernandez CRNP [address] [place] [address] 09/26/2024 3:00 PM EDT Office Visit [facility] [address] [place] [address] Simi Hernandez CRNP [address] [place] [address] 10/23/2024 3:00 PM EST Office Visit [facility] [address] [place] [address] Simi Hernandez CRNP [address] [place] [address] 11/23/2024 3:00 PM EST Office Visit [facility] [address] [place] [address] Simi Hernandez CRNP [address] [place] [address] Scheduled Procedures Name Priority Associated Diagnoses Date/Ti [...] D LEVEL ONCE IN A LIFETIME-USE SMARTSET# [id number] Completed 01/17/2023, 04/05/2022, 04/28/2021, Additional history exists [...] Procedure Name Priority Date/Time Associated Diagnosis Comments ECHOCARDIOLOGY SCANNED RESULT 02/03/2024 documented in this encounter Results * ECHOCARDIOLOGY SCANNED RESULT (02/03/2024) 02/03/2024 No Physician Data Unknown ECHOCARDIOLOGY documented in this encounter Advance Directives Latest [...] and were consensually agreed upon. Care Teams Lead Business Analyst Relationship Specialty Start Date End Date Simi Hernandez CRNP [address] [place] [address] PCP - General Nurse Practitioner 10/05/22 documented as of this encounter
[2024-04-15] MEDS: ACETAMINOPHEN 325 MG TAB PO PRN (04:02)
[2024-04-15] MEDS: CEFEPIME 2,000 MG in SYRINGE 0 ML IV SCH ×2 (04:03→17:20)
[2024-04-15 06:36] LABS: Basophils # (auto) 0.02 K/uL (0.00-0.20); Basophils % (auto) 0.2 %; Eosinophils # (auto) 0.02 K/uL (0.00-0.50); Eosinophils % (auto) 0.2 %; Hematocrit (blood only) 23.7 % (37.0-47.0); Hemoglobin 7.3 g/dl (12.0-16.0); Immature Granulocytes # (auto) 0.04 K/uL (0.01-0.20); Immature Granulocytes % (auto) 0.5 %; Lymphocytes # (auto) 1.19 K/uL (1.20-3.40); Lymphocytes % (auto) 14.3 %; Mean Corpuscular Hemoglobin 26.4 pg (25.0-34.0); Mean Corpuscular Hgb Conc 30.8 g/dL (32.0-36.0); Mean Corpuscular Volume 85.9 fL (80.0-100.0); Mean Platelet Volume 10.4 fL (9.4-12.4); Monocytes # (auto) 0.92 K/uL (0.11-0.59); Monocytes % (auto) 11.1 %; Neutrophils # (auto) 6.12 K/uL (1.40-6.50); Neutrophils % (auto) 73.7 %; Platelet Count 229 K/uL (130-400); RDW Standard Deviation 59.7 fL (36.4-46.3); Red Blood Count 2.76 M/uL (4.20-5.40); White Blood Count 8.31 K/ul (4.8-10.8)
[2024-04-15 06:57] LABS: RBC Morphology Unremarkable
[2024-04-15 07:03] LABS: BUN Creatinine Ratio 31.1 (10-20); Calcium 8.4 mg/dl (8.6-10.3); Creatinine Clr Calc Pharmacy 55.5 ml/min; Est GFR (African American) 74.6 ml/min; Est GFR (Non-African American) 64.3 ml/min; Magnesium 1.9 mg/dl (1.7-2.4); Potassium 4.1 mmol/L (3.5-5.1)
[2024-04-15] MEDS ORDERED: DEXAMETHASONE SOD INJ 4 MG/ML VIAL IV STA ×2 (07:12→20:14)
[2024-04-15 07:28] LABS: Estimated Average Glucose 120 mg/dl; Hemoglobin A1C 5.8 % (4.5-5.6)
--- NOTE | 2024-04-15 08:00 | XRay Report ---
XR chest 1V portable HISTORY: 73 years-old Female leg swelling acute shortness of breath with possible pulmonary edema COMPARISON: 02/03/2024 TECHNIQUE: AP view of the chest FINDINGS: Reverse right shoulder arthroplasty. Severe left-sided neural osteoarthritis. Hiatal hernia. Cardiome boyd. Probable trace pleural effusions. No pneumothorax. Mild bibasilar atelectasis. Pulmonary vascul ar congestion. IMPRESSION: 1. Cardiomegaly with pulmonary vascular congestion. 2. Probable trace pleural effusions. 3. Hiatal hernia. ACT 112: Negative or not required by law. The above report was generated using voice recognition software. It may contain grammatical, syntax o r spelling errors. Electronically signed by: Nasir Mccauley M.D. 04/15/2024 7:58 AM
[2024-04-15] MEDS: ESCITALOPRAM OXALATE 20 MG TAB PO SCH (08:32)
[2024-04-15] MEDS: SENNA 8.6 MG TAB PO SCH (08:33)
[2024-04-15] MEDS: MULTIVITAMIN TAB PO SCH (08:33)
[2024-04-15] MEDS: OXYBUTYNIN CHLORIDE XL 5 MG TABCR PO SCH (08:33)
[2024-04-15] MEDS: METOPROLOL SUCC 25MG EXT REL TAB PO SCH (08:33)
[2024-04-15] MEDS: APIXABAN 5 MG TABLET PO SCH (08:33)
[2024-04-15] MEDS: PANTOprazole 40 MG TAB PO SCH (08:33)
[2024-04-15] MEDS ORDERED: predniSONE 10 MG TABLET PO SCH (09:00)
[2024-04-15] MEDS ORDERED: DOXYCYCLINE HYCLATE 100 MG CAP PO SCH (09:00)
[2024-04-15] MEDS ORDERED: METOPROLOL SUCC 50MG EXT REL TAB PO SCH (09:00)
[2024-04-15] MEDS: dexAMETHasone 4 MG in SYRINGE 0 ML IV STA (10:42)
--- NOTE | 2024-04-15 10:47 | Surgery Progress Note ---
Date of Service April 15, 2024 Assessment & Plan (1) Septic prepatellar bursitis: Plan: 73-year-old female with MS along with multiple other medical comorbidities admitted with septic prepatellar bursitis. Clinically she is significantly improved. Certainly not anywhere near resolved. There is no further fluid accumulation. Cellulitis portion has improved. Cultures are pending. Plan: At this point we just recommend continued IV antibiotic management. Ho pefully within a couple days we can change her to p.o. antibiotics. Will await culture results for definitive antibiotic selection. Will check her daily to see whether she needs a repeat aspiration. Any orthopedic questions can be directly [phone] Admission and Anticipated Discharge Date Admission Date: April 14, 2024 Subjective 73-year-old female with underlying MS and multiple other medical comorbidities now hospital day #2 admitted for a septic prepatellar bursitis. We aspirated this in the ER last evening. Gram stain is showed many WBCs no organisms. Really not have much in the way of pain or discomfort. Pain seem to be somewhat improved. Physical Exam Physical Exam: Physical examination is a pleasant middle-age female. She is lying bed looks pretty comfortable. Examination of the left knee reveals the swelling and redness to be significantly improved. She still got some bogginess to her prepatellar bursa but no fluid in it. No knee effusion. Neurologically intact. The redness is improved but still present Results & Data Vital Signs (Past 12 Hours) Vital Signs Temp Pulse Pulse Resp BP BP Pulse Ox 04/15/24 09:00 87 04/15/24 07:33 36.4 C L 84 16 93/52 L 96 04/15/24 03:56 38.5 C H 91 H 20 95/56 L 93 04/15/24 01:56 37.7 C H 111 H 20 147/79 H 95 04/15/24 01:05 106 H 19 145/97 H 98 04/15/24 00:00 04/15/24 00:00 37.5 C 101 H 20 150/103 H 93 04/15/24 00:00 110 H 21 141/82 H 97 04/14/24 23:31 110 H 20 139/84 98 04/14/24 23:02 106 H 04/14/24 23:00 107 H 22 123/94 94 O2 Del Method 04/15/24 09:00 04/15/24 07:33 Room Air 04/15/24 03:56 Room Air 04/15/24 01:56 Room Air 04/15/24 01:05 Room Air 04/15/24 00:00 Room Air 04/15/24 00:00 Room Air 04/15/24 00:00 Room Air 04/14/24 23:31 Room Air 04/14/24 23:02 04/14/24 23:00 Room Air Laboratory Results White blood cell count is improved at 8.31. She is anemic with a hemoglobin 7.3. Gram stain shows many WBCs no organisms. Cultures are pending. PG Care Time/CCT Total # of Minutes Spent Total Time Spent with Patient: Total time spent is greater than 50% in coordination of care (as documented) at patient's floor/unit and/or counseling patient: Coding Level of Care Code 35132 SUB INP/OBS CARE 2/35MIN Diagnoses Septic prepatellar bursitis M71.169
--- NOTE | 2024-04-15 13:29 | Hospitalist Progress Note ---
Date of Service April 15, 2024 Assessment & Plan (1) Sepsis: Plan: 73-year-old lady with PMH of CAD, PSVT, PAF/PE DVT s/p IVC filter & on Eliquis, mild (TTE 2023), HTN, HLD, MS on chronic prednisone & Aubagio Rx, neurogenic bladder, ESBL E. coli UTI, left breast cancer status post surgery/radiation, right ankle osteomyelitis, venous stasis/chronic discoloration BLE, chronic anemia [baseline hemoglobin 9], rosacea on chronic doxycycline, skin cancer status post surgery, chronic pain on baclofen pump, past tobacco abuse presented with achy left knee pain and worsening swelling/no recollection of recent trauma. Fever and chills at home. She is being managed for the following: Bursitis of left knee Sepsis POA: Likely secondary to above. Heart rate/temperature/WBC elevated at presentation. Pro-Bib and lactate WNL. Patient coming in with left knee pain. Admitting knee x-ray with moderate prepatellar soft tissues swelling. No acute fracture or dislocation. Severe lateral compartment osteoarthritis. Admitting venous Doppler LLE: Negative for DVT. Status post bedside aspiration of left knee by orthopedics 04/14. Patient started on cefepime 04/14 and daptomycin 04/14 [CPK 34, home statin on hold], continue. Follow admitting blood culture and left knee culture. Temperature is getting better, patient feels some comfort at her left knee. Immunocompromised patient: Aubagio on hold due to acute infection. Resume once acute issues resolve. Multiple sclerosis: On chronic prednisone and open acute treatment Rosacea on doxycycline: continue doxycycline. Other chronic medical conditions: Continue with/resume home meds as and when able. hx CAD PAF/PE DVT status post IVC filter placement on Eliquis mild hypertension, c/w home bp meds /w hold parameters. hyperlipidemia on statin Rx history of neurogenic bladder L breast cancer status post surgery/radiation chronic anemia, hemoglobin at baseline rosacea on doxycycline chronic pain on baclofen pump Steroid-induced hyperglycemia rule out DM past tobacco abuse. DVT prophylaxis. Continue home Eliquis Full code Patient daughter Ms. Alyssa Perez, contact #[phone]. Text document was generated using [employer] voice recognition software. It may contain grammatical or spelling errors. Kindly contact undersigned for clarification of any documentation item in question. Admission and Anticipated Discharge Date Admission Date: April 14, 2024 Subjective Patient was seen and examined at bedside. Patient was lying in bed, on room air, NAD, resting comfortably. Patient reports left knee pain some better. Patient denies further fever. Patient reports eating okay and moving bowels okay. Patient reports chronic purple discoloration of her lower extremities. Physical Exam Physical Exam: GENERAL: Comfortable, pleasant, slightly hard of hearing, no respiratory distress SKIN: Pallor, warm HEENT: Pale palpebral conjunctivae, no ptosis, moist buccal mucosa NECK : Supple, no tenderness CHEST : CTA, no tenderness HEART : rrr, systolic murmur ABDOMEN: no distention, no tenderness tenderness EXTREMITIES : Bilateral LE swelling, left knee prepatellar bursa erythema, swelling, some warmth/tender. Chronic ble purple discoloration per pt. NEUROLOGIC : Coherent, no facial asymmetry, mild hearing impairment, gait and stance not assessed Results & Data Results & Data Vital Signs (Past 12 Hours) Vital Signs Temp Pulse Pulse Resp BP Pulse Ox O2 Del Method 04/15/24 11:53 36.9 C 84 16 97/61 L 98 Room Air 04/15/24 09:00 87 04/15/24 07:33 36.4 C L 84 16 93/52 L 96 Room Air 04/15/24 03:56 38.5 C H 91 H 20 95/56 L 93 Room Air 04/15/24 01:56 37.7 C H 111 H 20 147/79 H 95 Room Air (1) Sepsis Sepsis acute organ dysfunction status: unspecified Sepsis type: sepsis due to unspecified organism Qualified Code(s): A41.9 - Sepsis, unspecified organism
[2024-04-15 14:41] LABS: Hematocrit (blood only) 25.2 % (37.0-47.0); Hemoglobin 7.7 g/dl (12.0-16.0)
[2024-04-15] MEDS: MELATONIN 3 MG TAB PO SCH (20:17)
[2024-04-15] MEDS: DAPTOmycin 225 MG in SYRINGE 0 ML IV SCH (20:19)
[2024-04-15] MEDS: dexAMETHasone 4 MG in SYRINGE 0 ML IV ONE (21:04)
[2024-04-16] MEDS: MAGNESIUM SULFATE / D5W 1 GM/100 ML BAG IV ONE (04:36)
[2024-04-16] MEDS: METOPROLOL SUCC 25MG EXT REL TAB PO STA (04:36)
[2024-04-16 04:53] LABS: Hematocrit (blood only) 27.3 % (37.0-47.0); Hemoglobin 8.5 g/dl (12.0-16.0); Mean Corpuscular Hemoglobin 26.6 pg (25.0-34.0); Mean Corpuscular Hgb Conc 31.1 g/dL (32.0-36.0); Mean Corpuscular Volume 85.6 fL (80.0-100.0); Mean Platelet Volume 10.3 fL (9.4-12.4); Platelet Count 280 K/uL (130-400); RDW Coefficient of Variation 19.1 % (11.5-14.5); RDW Standard Deviation 60.2 fL (36.4-46.3); Red Blood Count 3.19 M/uL (4.20-5.40); White Blood Count 11.66 K/ul (4.8-10.8)
[2024-04-16 05:04] LABS: Albumin Level 3.8 gm/dl (3.4-5.0); BUN Creatinine Ratio 27.1 (10-20); Calcium 9.3 mg/dl (8.6-10.3); Est GFR (Non-African American) 59.5 ml/min; Magnesium 2.1 mg/dl (1.7-2.4); Phosphorus 3.8 mg/dl (2.5-4.9); Potassium 4.9 mmol/L (3.5-5.1)
[2024-04-16] MEDS: ALBUMIN 25% 25 GM/100 ML VIAL IV ONE (06:36)
--- NOTE | 2024-04-16 07:21 | Surgery Progress Note ---
Date of Service April 16, 2024 Assessment & Plan (1) Septic prepatellar bursitis: Plan: 73-year-old female with MS admitted with a left septic prepatellar bursitis. Is making significant improvements. Cultures growing to beta strep. Plan: Her knees made marked improvement since admission. She can likely be transferred to oral antibiotics at any time. She will probably need 10 to 14- day course of antibiotics. No surgical intervention warranted. Any orthopedic questions can be directly [phone]. Admission and Anticipated Discharge Date Admission Date: April 14, 2024 Subjective 73-year-old female admitted with a left septic prepatellar bursitis. She is doing quite bit better this morning. The knee continues to get better. No real new complaints. Physical Exam Physical Exam: Physical examination is a pleasant elderly female. She is lying in bed looks comfortable. Examination of the left knee reveals the redness and swelling to be markedly improved. Still some bogginess to her prepatellar bursa. No real major detectable fluid. No knee effusion. She is neurologically intact. Results & Data Vital Signs (Past 12 Hours) Vital Signs Temp Pulse Pulse Resp BP Pulse Ox O2 Del Method 04/16/24 03:09 36.9 C 88 20 133/82 95 Room Air 04/15/24 22:40 36.7 C 86 16 101/65 93 Room Air 04/15/24 21:50 89 Laboratory Results Culture results are growing no group B beta strep. PG Care Time/CCT Total # of Minutes Spent Total Time Spent with Patient: Total time spent is greater than 50% in coordination of care (as documented) at patient's floor/unit and/or counseling patient: Coding Level of Care Code 76479 SUB INP/OBS CARE 2/35MIN Diagnoses Septic prepatellar bursitis M71.169
[2024-04-16] MEDS: DOXYCYCLINE HYCLATE 50 MG CAP PO SCH (08:08)
[2024-04-16] MEDS: predniSONE 10 MG TABLET PO SCH (08:09)
--- NOTE | 2024-04-16 15:56 | Hospitalist Progress Note ---
Date of Service April 16, 2024 Assessment & Plan (1) Sepsis: Plan: 73-year-old lady with PMH of CAD, PSVT, PAF/PE DVT s/p IVC filter & on Eliquis, mild (TTE 2023), HTN, HLD, MS on chronic prednisone & Aubagio Rx, neurogenic bladder, ESBL E. coli UTI, left breast cancer status post surgery/radiation, right ankle osteomyelitis, venous stasis/chronic discoloration BLE, chronic anemia [baseline hemoglobin 9], rosacea on chronic doxycycline, skin cancer status post surgery, chronic pain on baclofen pump, past tobacco abuse presented with achy left knee pain and worsening swelling/no recollection of recent trauma. Fever and chills at home. She is being managed for the following: Bursitis of left knee Sepsis POA: Likely secondary to above. Heart rate/temperature/WBC elevated at presentation. Pro-Bib and lactate WNL. Patient coming in with left knee pain. Admitting knee x-ray with moderate prepatellar soft tissues swelling. No acute fracture or dislocation. Severe lateral compartment osteoarthritis. Admitting venous Doppler LLE: Negative for DVT. Status post bedside aspiration of left knee by orthopedics 04/14. Patient started on cefepime 04/14 and daptomycin 04/14 [CPK 34, home statin on hold], continue. Follow admitting blood culture and left knee culture. Temperature is getting better, patient feels some comfort at her left knee. De-escalate atb once C/S available. Immunocompromised patient: Aubagio on hold due to acute infection. Resume once acute issues resolve. Multiple sclerosis: On chronic prednisone and open acute treatment Rosacea on doxycycline: continue doxycycline. Other chronic medical conditions: Continue with/resume home meds as and when able. hx CAD PAF/PE DVT status post IVC filter placement on Eliquis mild hypertension, c/w home bp meds /w hold parameters. hyperlipidemia on statin Rx history of neurogenic bladder L breast cancer status post surgery/radiation chronic anemia, hemoglobin at baseline rosacea on doxycycline chronic pain on baclofen pump Steroid-induced hyperglycemia rule out DM past tobacco abuse. DVT prophylaxis. Continue home Eliquis Full code Patient daughter Ms. Alyssa Perez, contact #[phone]. Pt dtrosa Lucia was updated over the phone 04/16, answered all her questions. Text document was generated using [employer] voice recognition software. It may contain grammatical or spelling errors. Kindly contact undersigned for clarification of any documentation item in question. Admission and Anticipated Discharge Date Admission Date: April 14, 2024 Subjective Patient was seen and examined at bedside. Patient was lying in bed, on room air, NAD, resting comfortably. Patient reports left knee pain some better. Patient denies fever. Patient reports eating okay and moving bowels okay. Patient reports chronic purple discoloration of her lower extremities. Left knee swelling/erythema better, non painful rom noted at bedside. Physical Exam Physical Exam: GENERAL: Comfortable, pleasant, slightly hard of hearing, no respiratory distress SKIN: Pallor, warm HEENT: Pale palpebral conjunctivae, no ptosis, moist buccal mucosa NECK : Supple, no tenderness CHEST : CTA, no tenderness HEART : rrr, systolic murmur ABDOMEN: no distention, no tenderness tenderness EXTREMITIES : Bilateral LE swelling, left knee prepatellar bursa erythema, swelling, some warmth/tender - improving. Chronic ble purple discoloration per pt. NEUROLOGIC : Coherent, no facial asymmetry, mild hearing impairment, gait and stance not assessed Results & Data Results & Data Vital Signs (Past 12 Hours) Vital Signs Temp Pulse Pulse Resp BP Pulse Ox O2 Del Method 04/16/24 15:22 36.8 C 85 18 117/64 91 Room Air 04/16/24 15:02 83 04/16/24 11:50 37.1 C 79 17 125/67 93 Room Air 04/16/24 07:57 36.6 C 76 17 113/57 L 97 Room Air 04/16/24 07:19 82 (1) Sepsis Sepsis acute organ dysfunction status: unspecified Sepsis type: sepsis due to unspecified organism Qualified Code(s): A41.9 - Sepsis, unspecified organism
[2024-04-16] MEDS: METOPROLOL SUCC 25MG EXT REL TAB PO SCH (20:17)
[2024-04-17 04:54] LABS: Hematocrit (blood only) 25.4 % (37.0-47.0); Hemoglobin 7.8 g/dl (12.0-16.0); Mean Corpuscular Hgb Conc 30.7 g/dL (32.0-36.0); Mean Corpuscular Volume 84.7 fL (80.0-100.0); Mean Platelet Volume 10.6 fL (9.4-12.4); Platelet Count 284 K/uL (130-400); RDW Standard Deviation 58.8 fL (36.4-46.3); White Blood Count 7.81 K/ul (4.8-10.8)
[2024-04-17 05:38] LABS: BUN Creatinine Ratio 35.3 (10-20); Calcium 8.9 mg/dl (8.6-10.3); Creatinine Clr Calc Pharmacy 58.8 ml/min; Est GFR (African American) 79.9 ml/min; Est GFR (Non-African American) 68.9 ml/min; Magnesium 2.2 mg/dl (1.7-2.4); Phosphorus 2.8 mg/dl (2.5-4.9); Potassium 4.2 mmol/L (3.5-5.1)
--- NOTE | 2024-04-17 10:42 | Surgery Progress Note ---
Date of Service April 17, 2024 Assessment & Plan (1) Septic prepatellar bursitis: Plan: 73-year-old female admitted with a septic prepatellar bursitis and cellulitis. This is improving significantly. Cultures are growing out strep. Plan: At this point there is no further fluid accumulation needing aspiration. This is not something on the surgery. I think she can be converted to oral antibiotics at any time and likely discharge. I need to see her back 2 weeks out from her hospitalization. I would give her at least 2 weeks of p.o. antibiotics. There is no other restrictions from my standpoint. Any orthopedic questions can recommend [phone]. Admission and Anticipated Discharge Date Admission Date: April 14, 2024 Subjective 73-year-old female admitted with left knee septic prepatellar bursitis and cellulitis. She continues to have some pain and discomfort. Seems to be improving clinically. Physical Exam Physical Exam: Physical examination was a pleasant middle-age female. She is sitting up in bed this morning looks quite comfortable. Examination left knee and leg reveals the redness to be markedly improved. Still a bit of a red hue to her knee. A little bit of bogginess to her bursa. No obvious fluid collection. She does have a healing scab in the front of her knee. No knee effusion. Results & Data Vital Signs (Past 12 Hours) Vital Signs Temp Pulse Pulse Resp BP Pulse Ox O2 Del Method 04/17/24 10:12 36.7 C 94 H 18 110/67 96 Room Air 04/17/24 07:33 84 04/17/24 07:06 36.8 C 85 18 145/83 H 94 Room Air 04/17/24 04:00 36.9 C 81 18 125/66 94 Room Air 04/16/24 23:00 74 Laboratory Results White blood cell count is 7.81. Hemoglobin 7.8. Hematocrit 25.4. Electrolytes appear stable. PG Care Time/CCT Total # of Minutes Spent Total Time Spent with Patient: Total time spent is greater than 50% in coordination of care (as documented) at patient's floor/unit and/or counseling patient: Coding Level of Care Code 29191 SUB INP/OBS CARE 3/50MIN Diagnoses Septic prepatellar bursitis M71.169
--- NOTE | 2024-04-17 16:08 | Electrocardiogram Report ---
Test Reason : Blood Pressure : / mmHG Vent. Rate : 081 BPM Atrial Rate : 081 BPM P-R Int : 154 ms QRS Dur : 072 ms QT Int : 360 ms P-R-T Axes : 053 007 053 degrees QTc Int : 418 ms Sinus rhythm with Premature atrial complexes Septal infarct (cited on or before 03-FEB-2024) Abnormal ECG When compared with ECG of 10-FEB-2024 16:36, Premature atrial complexes are now Present Confirmed by Louis Jerome ([id number]) on 04/17/2024 4:07:44 PM Referred By: REFERRED SELF Confirmed By:Louis Jerome
--- NOTE | 2024-04-17 17:53 | Hospitalist Progress Note ---
Date of Service April 17, 2024 Assessment & Plan (1) Sepsis: Plan: 73-year-old lady with PMH of CAD, PSVT, PAF/PE DVT s/p IVC filter & on Eliquis, mild (TTE 2023), HTN, HLD, MS on chronic prednisone & Aubagio Rx, neurogenic bladder, ESBL E. coli UTI, left breast cancer status post surgery/radiation, right ankle osteomyelitis, venous stasis/chronic discoloration BLE, chronic anemia [baseline hemoglobin 9], rosacea on chronic doxycycline, skin cancer status post surgery, chronic pain on baclofen pump, past tobacco abuse presented with achy left knee pain and worsening swelling/no recollection of recent trauma. Fever and chills at home. She is being managed for the following: Bursitis of left knee Sepsis POA: Likely secondary to above. Heart rate/temperature/WBC elevated at presentation. Pro-Bib and lactate WNL. Patient coming in with left knee pain. Admitting knee x-ray with moderate prepatellar soft tissues swelling. No acute fracture or dislocation. Severe lateral compartment osteoarthritis. Admitting venous Doppler LLE: Negative for DVT. Status post bedside aspiration of left knee by orthopedics 04/14. Patient started on cefepime 04/14 and daptomycin 04/14 [CPK 34, home statin on hold], continue. Follow admitting blood culture and left knee culture. Temperature is getting better, patient feels some comfort at her left knee. knee c/s reviewed, dc dapto, c/w iv atb while inpatient, to oral on dc likely emely. Immunocompromised patient: Aubagio on hold due to acute infection. Resume once acute issues resolve. Multiple sclerosis: On chronic prednisone and open acute treatment Rosacea on doxycycline: continue doxycycline. Other chronic medical conditions: Continue with/resume home meds as and when able. hx CAD PAF/PE DVT status post IVC filter placement on Eliquis mild hypertension, c/w home bp meds /w hold parameters. hyperlipidemia on statin Rx history of neurogenic bladder L breast cancer status post surgery/radiation chronic anemia, hemoglobin at baseline rosacea on doxycycline chronic pain on baclofen pump Steroid-induced hyperglycemia rule out DM past tobacco abuse. DVT prophylaxis. Continue home Eliquis Full code Patient daughter Ms. Alyssa Perez, contact #[phone]. Pt dtr Rea was updated over the phone 04/16, answered all her questions. Text document was generated using [employer] voice recognition software. It may contain grammatical or spelling errors. Kindly contact undersigned for clarification of any documentation item in question. Admission and Anticipated Discharge Date Admission Date: April 14, 2024 Subjective Patient was seen and examined at bedside. Patient was lying in bed, on room air, NAD, resting comfortably. Patient reports left knee pain better. Patient denies fever. Patient reports eating okay and moving bowels okay. Patient reports chronic purple discoloration of her lower extremities. Left knee swelling/erythema better, non painful rom noted at bedside. pt reports hospital bed being set up at home, would like to go home emely. Physical Exam Physical Exam: GENERAL: Comfortable, pleasant, slightly hard of hearing, no respiratory distress SKIN: Pallor, warm HEENT: Pale palpebral conjunctivae, no ptosis, moist buccal mucosa NECK : Supple, no tenderness CHEST : CTA, no tenderness HEART : rrr, systolic murmur ABDOMEN: no distention, no tenderness tenderness EXTREMITIES : Bilateral LE swelling, left knee prepatellar bursa erythema, swelling, some warmth/tender - improving. Chronic ble purple discoloration per pt. NEUROLOGIC : Coherent, no facial asymmetry, mild hearing impairment, gait and stance not assessed Results & Data Results & Data Vital Signs (Past 12 Hours) Vital Signs Temp Pulse Pulse Resp BP Pulse Ox O2 Del Method 04/17/24 15:41 81 04/17/24 15:27 36.8 C 103 H 18 142/83 H 94 Room Air 04/17/24 10:12 36.7 C 94 H 18 110/67 96 Room Air 04/17/24 07:33 84 04/17/24 07:06 36.8 C 85 18 145/83 H 94 Room Air (1) Sepsis Sepsis acute organ dysfunction status: unspecified Sepsis type: sepsis due to unspecified organism Qualified Code(s): A41.9 - Sepsis, unspecified organism
[2024-04-18 06:45] LABS: Hematocrit (blood only) 27.3 % (37.0-47.0); Hemoglobin 8.5 g/dl (12.0-16.0); Mean Corpuscular Hemoglobin 26.6 pg (25.0-34.0); Mean Corpuscular Hgb Conc 31.1 g/dL (32.0-36.0); Mean Corpuscular Volume 85.3 fL (80.0-100.0); Mean Platelet Volume 10.4 fL (9.4-12.4); Nucleated RBC # (auto) 0.02 K/uL (0.00-0.12); Nucleated RBC % (auto) 0.4 %; Platelet Count 328 K/uL (130-400); RDW Coefficient of Variation 18.8 % (11.5-14.5); RDW Standard Deviation 58.2 fL (36.4-46.3)
[2024-04-18] MEDS: CEFDINIR 300 MG CAP PO SCH (17:20)
--- NOTE | 2024-04-18 18:41 | Hospitalist Progress Note ---
Date of Service April 18, 2024 Assessment & Plan (1) Sepsis: Plan: 73-year-old lady with PMH of CAD, PSVT, PAF/PE DVT s/p IVC filter & on Eliquis, mild (TTE 2023), HTN, HLD, MS on chronic prednisone & Aubagio Rx, neurogenic bladder, ESBL E. coli UTI, left breast cancer status post surgery/radiation, right ankle osteomyelitis, venous stasis/chronic discoloration BLE, chronic anemia [baseline hemoglobin 9], rosacea on chronic doxycycline, skin cancer status post surgery, chronic pain on baclofen pump, past tobacco abuse presented with achy left knee pain and worsening swelling/no recollection of recent trauma. Fever and chills at home. She is being managed for the following: Bursitis of left knee Sepsis POA: Likely secondary to above. Heart rate/temperature/WBC elevated at presentation. Pro-Bib and lactate WNL. Patient coming in with left knee pain. Admitting knee x-ray with moderate prepatellar soft tissues swelling. No acute fracture or dislocation. Severe lateral compartment osteoarthritis. Admitting venous Doppler LLE: Negative for DVT. Status post bedside aspiration of left knee by orthopedics 04/14. Patient started on cefepime 04/14 and daptomycin 04/14 [CPK 34, home statin on hold], continue. Blood cultures have been negative Gram stain of the aspirate fluid did show group B beta strep IV antibiotic will be changed to oral Cefdinir to be continued for a total of 14 days Will apply moist warm compression over the knee PT OT evaluation prior to discharge tomorrow Immunocompromised patient: Aubagio on hold due to acute infection. Resume once acute issues resolve. Will restart medications for the multiple sclerosis Multiple sclerosis: On chronic prednisone and open acute treatment Rosacea on doxycycline: continue doxycycline. Other chronic medical conditions: Continue with/resume home meds as and when able. hx CAD PAF/PE DVT status post IVC filter placement on Eliquis mild hypertension, c/w home bp meds /w hold parameters. hyperlipidemia on statin Rx history of neurogenic bladder L breast cancer status post surgery/radiation chronic anemia, hemoglobin at baseline rosacea on doxycycline chronic pain on baclofen pump Steroid-induced hyperglycemia rule out DM past tobacco abuse. DVT prophylaxis. Continue home Eliquis Full code Patient daughter Ms. Alyssa Perez, contact #[phone]. Pt dtr Rea was updated over the phone 04/16, answered all her questions. Text document was generated using [employer] voice recognition software. It may contain grammatical or spelling errors. Kindly contact undersigned for clarification of any documentation item in question. Admission and Anticipated Discharge Date Admission Date: April 14, 2024 Subjective 04/18/2024 The patient was seen and examined in medical telemetry unit She has been feeling much better and wants to go home She has not had any physical therapy evaluation yet Denies any fever and or chills She wants to restart her medications for multiple sclerosis Review of Systems Review of Systems: All systems reviewed and are unremarkable except as noted below Physical Exam Physical Exam: Sitting at the edge of the bed without any acute distress Constitutional: well developed, well nourished, + ill appearing and average body habitus Eyes: PERRL, conjunctivae normal, anicteric sclerae ENMT: external ear and nose normal, oropharynx normal Neck: trachea midline, no thyromegaly Respiratory: no respiratory distress Auscultation: lungs clear to auscultation bilaterally Cardiovascular: Rate/Rhythm: regular rate and regular rhythm; not tachycardic Heart Sounds: normal S1 and normal S2; no murmur Extremities: no edema Gastrointestinal (Abdomen): Inspection/Auscultation: normal bowel sounds; abdomen not distended Percussion/Palpation: abdomen soft; abdomen nontender Musculoskeletal: Knee: + knee abnormal to inspection (Left knee is swollen mostly prepatellar area with adjoining redness ) Neurologic: normal touch/pain/proprioception and moves all extremities; no focal motor deficits Lymphatic: no cervical or axillary lymphadenopathy Results & Data Results & Data Vital Signs (Past 12 Hours) Vital Signs Temp Pulse Pulse Resp BP Pulse Ox O2 Del Method 04/18/24 16:03 36.8 C 63 17 125/80 97 Room Air 04/18/24 11:32 36.4 C L 71 18 103/70 96 Room Air 04/18/24 07:42 36.5 C 81 18 136/80 95 Room Air 04/18/24 07:34 72 Laboratory Results Short CBC 04/18/24 Range/Units 05:53 WBC 5.40 (4.8-10.8) K/ul Hgb 8.5 L (12.0-16.0) g/dl Hct 27.3 L (37.0-47.0) % Plt Count 328 (130-400) K/uL Medications Administered Current Inpatient Medications Acetaminophen (Acetaminophen 325 Mg Tab) 650 mg PO Q4H PRN PRN Reason: Pain or Fever Stop: 05/15/24 02:04 Last Admin: 04/15/24 04:02 Dose: 650 mg Apixaban (Apixaban 5 Mg Tablet) 5 mg PO BID MICHELLE Stop: 05/15/24 08:59 Last Admin: 04/18/24 09:55 Dose: 5 mg Atorvastatin Calcium (Atorvastatin 20 Mg Tab) 20 mg PO QAM MICHELLE Stop: 05/19/24 08:59 Baclofen (Baclofen Pain Pump) 1 pump IT UD [facility] Stop: 05/15/24 02:24 Cefdinir (Cefdinir 300 Mg Cap) 300 mg PO Q12H MICHELLE Stop: 05/02/24 15:59 Last Admin: 04/18/24 17:20 Dose: 300 mg Doxycycline Hyclate (Doxycycline Hyclate 50 Mg Cap) 50 mg PO Q48H MICHELLE Stop: 05/16/24 08:59 Last Admin: 04/18/24 09:55 Dose: 50 mg Escitalopram Oxalate (Escitalopram Oxalate 20 Mg Tab) 20 mg PO QAM MICHELLE Stop: 05/15/24 08:59 Last Admin: 04/18/24 09:55 Dose: 20 mg Promethazine HCl 6.25 mg/ (Sodium Chloride) 50.25 mls @ 201 mls/hr IV Q6H PRN PRN Reason: Nausea And Vomiting Stop: 05/14/24 23:43 Melatonin (Melatonin 3 Mg Tab) 3 mg PO HS PRN PRN Reason: Sleep Stop: 05/15/24 01:16 Last Admin: 04/15/24 02:48 Dose: 3 mg Melatonin (Melatonin 3 Mg Tab) 3 mg PO HS MICHELLE Stop: 05/15/24 20:59 Last Admin: 04/17/24 21:19 Dose: 3 mg Metoprolol Succinate (Metoprolol Succ 25mg Ext Rel Tab) 25 mg PO Q12 MICHELLE Stop: 05/16/24 20:59 Last Admin: 04/18/24 09:54 Dose: 25 mg Multivitamins (Multivitamin Tab) 1 tab PO DAILY MICHELLE Stop: 05/15/24 08:59 Last Admin: 04/18/24 09:55 Dose: 1 tab Oxybutynin Chloride (Oxybutynin Chloride Xl 5 Mg Tabcr) 15 mg PO [facility] Stop: 05/15/24 08:59 Last Admin: 04/18/24 09:55 Dose: 15 mg Pantoprazole Sodium (Pantoprazole 40 Mg Tab) [facility] [place] Stop: 05/15/24 08:59 Last Admin: 04/18/24 09:55 Dose: 40 mg Prednisone (Prednisone 10 Mg Tablet) 10 mg PO [facility] Stop: 05/16/24 08:59 Last Admin: 04/18/24 09:55 Dose: 10 mg Sennosides (Senna 8.6 Mg Tab) 8.6 mg PO [facility] Stop: 05/15/24 08:59 Last Admin: 04/18/24 09:55 Dose: 8.6 mg Teriflunomide (Teriflunomide 14 Mg Tab) 14 mg PO Q24H [facility] Stop: 05/18/24 18:29 Tizanidine HCl (Tizanidine Hcl 4 Mg Tablet) 4 mg PO Q6 [facility] Stop: 05/15/24 02:04 Last Admin: 04/18/24 13:49 Dose: 4 mg Tramadol HCl (Tramadol Hcl 50 Mg Tablet) 25 - 50 mg PO Q4H PRN PRN Reason: Pain Stop: 05/14/24 23:43 (1) Sepsis Sepsis acute organ dysfunction status: unspecified Sepsis type: sepsis due to unspecified organism Qualified Code(s): A41.9 - Sepsis, unspecified organism
[2024-04-18] MEDS: TERIFLUNOMIDE 14 MG TAB PO SCH (18:46)
[2024-04-19 06:35] LABS: Basophils # (auto) 0.04 K/uL (0.00-0.20); Basophils % (auto) 0.8 %; Eosinophils # (auto) 0.13 K/uL (0.00-0.50); Eosinophils % (auto) 2.5 %; Hematocrit (blood only) 28.8 % (37.0-47.0); Immature Granulocytes # (auto) 0.02 K/uL (0.01-0.20); Immature Granulocytes % (auto) 0.4 %; Lymphocytes # (auto) 1.18 K/uL (1.20-3.40); Lymphocytes % (auto) 23.1 %; Mean Corpuscular Hemoglobin 26.5 pg (25.0-34.0); Mean Corpuscular Hgb Conc 31.3 g/dL (32.0-36.0); Mean Platelet Volume 9.8 fL (9.4-12.4); Monocytes # (auto) 0.65 K/uL (0.11-0.59); Monocytes % (auto) 12.7 %; Neutrophils # (auto) 3.08 K/uL (1.40-6.50); Neutrophils % (auto) 60.5 %; Platelet Count 345 K/uL (130-400); RDW Coefficient of Variation 18.6 % (11.5-14.5); RDW Standard Deviation 57.8 fL (36.4-46.3); Red Blood Count 3.39 M/uL (4.20-5.40)
[2024-04-19 06:48] LABS: BUN Creatinine Ratio 32.1 (10-20); Calcium 9.5 mg/dl (8.6-10.3); Creatinine Clr Calc Pharmacy 63.9 ml/min; Est GFR (African American) 88.6 ml/min; Est GFR (Non-African American) 76.5 ml/min; Potassium 4.3 mmol/L (3.5-5.1)
[2024-04-19] MEDS: ATORVASTATIN 20 MG TAB PO SCH (09:25)
--- NOTE | 2024-04-19 15:16 | Hospitalist Progress Note ---
Date of Service April 19, 2024 Assessment & Plan (1) Sepsis: Plan: 73-year-old lady with PMH of CAD, PSVT, PAF/PE DVT s/p IVC filter & on Eliquis, mild (TTE 2023), HTN, HLD, MS on chronic prednisone & Aubagio Rx, neurogenic bladder, ESBL E. coli UTI, left breast cancer status post surgery/radiation, right ankle osteomyelitis, venous stasis/chronic discoloration BLE, chronic anemia [baseline hemoglobin 9], rosacea on chronic doxycycline, skin cancer status post surgery, chronic pain on baclofen pump, past tobacco abuse presented with achy left knee pain and worsening swelling/no recollection of recent trauma. Fever and chills at home. She is being managed for the following: Bursitis of left knee Sepsis POA: Likely secondary to above. Heart rate/temperature/WBC elevated at presentation. Pro-Bib and lactate WNL. Patient coming in with left knee pain. Admitting knee x-ray with moderate prepatellar soft tissues swelling. No acute fracture or dislocation. Severe lateral compartment osteoarthritis. Admitting venous Doppler LLE: Negative for DVT. Status post bedside aspiration of left knee by orthopedics 04/14. Patient started on cefepime 04/14 and daptomycin 04/14 [CPK 34, home statin on hold], continue. Blood cultures have been negative Gram stain of the aspirate fluid did show group B beta strep IV antibiotic will be changed to oral Cefdinir to be continued for a total of 14 days Will apply moist warm compression over the knee Has had PT and OT evaluation earlier this week-during this admission She has been feeling much better and ambulating in the room without any difficulties Her bursitis involving the prepatellar area has improved a lot without any pain and/or distress She will be discharged home this afternoon Immunocompromised patient: Aubagio on hold due to acute infection. Resume once acute issues resolve. Will restart medications for the multiple sclerosis Multiple sclerosis: On chronic prednisone and open acute treatment Rosacea on doxycycline: continue doxycycline. Other chronic medical conditions: Continue with/resume home meds as and when able. hx CAD PAF/PE DVT status post IVC filter placement on Eliquis mild hypertension, c/w home bp meds /w hold parameters. hyperlipidemia on statin Rx history of neurogenic bladder L breast cancer status post surgery/radiation chronic anemia, hemoglobin at baseline rosacea on doxycycline chronic pain on baclofen pump Steroid-induced hyperglycemia rule out DM past tobacco abuse. DVT prophylaxis. Continue home Eliquis Full code Patient daughter Ms. Alyssa Perez, contact #[phone]. Pt dtr Rea was updated over the phone 04/16, answered all her questions. Text document was generated using [employer] voice recognition software. It may contain grammatical or spelling errors. Kindly contact undersigned for clarification of any documentation item in question. Admission and Anticipated Discharge Date Admission Date: April 14, 2024 Subjective 04/18/2024 The patient was seen and examined in medical telemetry unit She has been feeling much better and wants to go home She has not had any physical therapy evaluation yet Denies any fever and or chills She wants to restart her medications for multiple sclerosis 04/19/2024 The patient was seen and examined in medical telemetry unit She has been feeling a lot better and seems to be at her baseline She has a PT evaluation earlier and will be discharged home this afternoon Denies any pain in the knee-the swelling and redness have improved a lot Review of Systems Review of Systems: All systems reviewed and are unremarkable except as noted below Physical Exam Physical Exam: Sitting at the edge of the bed without any acute distress Constitutional: well developed, well nourished, + ill appearing and average body habitus Eyes: PERRL, conjunctivae normal, anicteric sclerae ENMT: external ear and nose normal, oropharynx normal Neck: trachea midline, no thyromegaly Respiratory: no respiratory distress Auscultation: lungs clear to auscultation bilaterally Cardiovascular: Rate/Rhythm: regular rate and regular rhythm; not tachycardic Heart Sounds: normal S1 and normal S2; no murmur Extremities: no edema Gastrointestinal (Abdomen): Inspection/Auscultation: normal bowel sounds; abdomen not distended Percussion/Palpation: abdomen soft; abdomen nontender Musculoskeletal: Knee: + knee abnormal to inspection (Left knee is swollen mostly prepatellar area with adjoining redness ) Neurologic: normal touch/pain/proprioception and moves all extremities; no focal motor deficits Lymphatic: no cervical or axillary lymphadenopathy Results & Data Results & Data Vital Signs (Past 12 Hours) Vital Signs Temp Pulse Resp BP Pulse Ox O2 Del Method 04/19/24 10:53 36.3 C L 85 18 107/72 97 Room Air 04/19/24 08:06 37.0 C 79 18 151/86 H 94 Room Air Laboratory Results Short CBC 04/19/24 Range/Units 06:03 WBC 5.10 (4.8-10.8) K/ul Hgb 9.0 L (12.0-16.0) g/dl Hct 28.8 L (37.0-47.0) % Plt Count 345 (130-400) K/uL BMP 04/19/24 06:03 Sodium 140 Potassium 4.3 Chloride 106 Carbon Dioxide 29 BUN 25 H Creatinine 0.78 Glucose 86 Calcium 9.5 Medications Administered Current Inpatient Medications Acetaminophen (Acetaminophen 325 Mg Tab) 650 mg PO Q4H PRN PRN Reason: Pain or Fever Stop: 05/15/24 02:04 Last Admin: 04/15/24 04:02 Dose: 650 mg Apixaban (Apixaban 5 Mg Tablet) 5 mg PO BID [facility] Stop: 05/15/24 08:59 Last Admin: 04/19/24 09:25 Dose: 5 mg Atorvastatin Calcium (Atorvastatin 20 Mg Tab) 20 mg PO QAM [facility] Stop: 05/19/24 08:59 Last Admin: 04/19/24 09:25 Dose: 20 mg Baclofen (Baclofen Pain Pump) 1 pump IT UD [facility] Stop: 05/15/24 02:24 Cefdinir (Cefdinir 300 Mg Cap) 300 mg PO Q12H [facility] Stop: 05/02/24 15:59 Last Admin: 04/19/24 06:43 Dose: 300 mg Doxycycline Hyclate (Doxycycline Hyclate 50 Mg Cap) 50 mg PO Q48H [facility] Stop: 05/16/24 08:59 Last Admin: 04/18/24 09:55 Dose: 50 mg Escitalopram Oxalate (Escitalopram Oxalate 20 Mg Tab) 20 mg PO QAM [facility] Stop: 05/15/24 08:59 Last Admin: 04/19/24 09:25 Dose: 20 mg Promethazine HCl 6.25 mg/ (Sodium Chloride) 50.25 mls @ 201 mls/hr IV Q6H PRN PRN Reason: Nausea And Vomiting Stop: 05/14/24 23:43 Melatonin (Melatonin 3 Mg Tab) 3 mg PO HS PRN PRN Reason: Sleep Stop: 05/15/24 01:16 Last Admin: 04/15/24 02:48 Dose: 3 mg Melatonin (Melatonin 3 Mg Tab) 3 mg PO HS [facility] Stop: 05/15/24 20:59 Last Admin: 04/18/24 21:13 Dose: 3 mg Metoprolol Succinate (Metoprolol Succ 25mg Ext Rel Tab) 25 mg PO Q12 [facility] Stop: 05/16/24 20:59 Last Admin: 04/19/24 09:25 Dose: 25 mg Multivitamins (Multivitamin Tab) 1 tab PO DAILY [facility] Stop: 05/15/24 08:59 Last Admin: 04/19/24 09:25 Dose: 1 tab Oxybutynin Chloride (Oxybutynin Chloride Xl 5 Mg Tabcr) [facility] Stop: 05/15/24 08:59 Last Admin: 04/19/24 09:25 Dose: 15 mg Pantoprazole Sodium (Pantoprazole 40 Mg Tab) [facility] Stop: 05/15/24 08:59 Last Admin: 04/19/24 09:25 Dose: 40 mg Prednisone (Prednisone 10 Mg Tablet) 10 mg PO QAM [facility] Stop: 05/16/24 08:59 Last Admin: 04/19/24 09:25 Dose: 10 mg Sennosides (Senna 8.6 Mg Tab) 8.6 mg PO QAM [facility] Stop: 05/15/24 08:59 Last Admin: 04/19/24 09:26 Dose: Not Given Teriflunomide (Teriflunomide 14 Mg Tab) 14 mg PO Q24H [facility] Stop: 05/18/24 18:29 Last Admin: 04/18/24 18:46 Dose: 14 mg Tizanidine HCl (Tizanidine Hcl 4 Mg Tablet) 4 mg PO Q6 [facility] Stop: 05/15/24 02:04 Last Admin: 04/19/24 14:07 Dose: 4 mg Tramadol HCl (Tramadol Hcl 50 Mg Tablet) 25 - 50 mg PO Q4H PRN PRN Reason: Pain Stop: 05/14/24 23:43 (1) Sepsis Sepsis acute organ dysfunction status: unspecified Sepsis type: sepsis due to unspecified organism Qualified Code(s): A41.9 - Sepsis, unspecified organism
--- NOTE | 2024-04-20 07:27 | Discharge Summary ---
Date of Service April 20, 2024 Admission HPI Per Admitting Provider History obtained from patient, family, and records. Medical history significant for CAD, PSVT,PAF/PE DVT status post IVC filter placement on Eliquis, mild (TTE 2023), hypertension, hyperlipidemia, , MS on chronic prednisone and Aubagio Rx, history of neurogenic bladder, history ESBL E. coli UTI, L breast cancer status post surgery/radiation, past history right ankle osteomyelitis, history of venous stasis as per records,, chronic anemia (baseline hemoglobin 9), rosacea on doxycycline, skin cancer status post surgery, chronic pain on baclofen pump, past tobacco abuse. Last confinement January 2024 for septicemia and fungemia. Possible sources included UTI, left lower extremity cellulitis, right ankle wound, and vascular device. Blood cultures grew group B strep, Enterococcus faecalis, Sheila. No vegetations on BALA. Patient A port removed during confinement. Patient completed ampicillin and fluconazole course. Patient woke up this morning with achy left knee pain and worsening swelling. No recollection of recent trauma. Patient denies headache, chest pain, cough, abdominal pain, diarrhea, UTI symptoms. Fever chills at home. No unusual weight gain as per patient. Daptomycin and Zosyn administered at the ER. MED hx as above : OPERATIONS: She has had left mastectomy, left hip surgery, IVC filter placement, hysterectomy, shoulder surgery, dental surgery, spinal pain pump placement, appendectomy family by fracture surgery, a port placement/removal, bone debridement FAMILY HISTORY: thyroid cancer, heart disease PERSONAL AND SOCIAL HISTORY: Past tobacco abuse. No chronic intake of alcoholic beverages. 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 Admission Exam Per Admitting Provider Physical Exam: GENERAL: Comfortable, pleasant, slightly hard of hearing, no respiratory distress SKIN: Pallor, warm HEENT: Pale palpebral conjunctivae, no ptosis, dry buccal mucosa NECK : Supple, no tenderness CHEST : CTA, no tenderness HEART : tachycardic, systolic murmur ABDOMEN: Some distention, no tenderness tenderness EXTREMITIES : Bilateral LE swelling, bandage over left knee, erythema over left foot NEUROLOGIC : Coherent, no facial asymmetry, mild hearing impairment, gait and stance not assessed Principal Diagnosis Left prepatellar bursitis, sepsis POA, multiple sclerosis Discharge Exam Sitting at the edge of the bed without any acute distress Constitutional well developed, well nourished, + ill appearing and average body habitus Eyes PERRL, conjunctivae normal, anicteric sclerae ENMT external ear and nose normal, oropharynx normal Neck trachea midline, no thyromegaly Respiratory no respiratory distress Auscultation: lungs clear to auscultation bilaterally Cardiovascular Rate/Rhythm: regular rate and regular rhythm; not tachycardic Heart Sounds: normal S1 and normal S2; no murmur Extremities: no edema Gastrointestinal (Abdomen) Inspection/Auscultation: normal bowel sounds; abdomen not distended Percussion/Palpation: abdomen soft; abdomen nontender Musculoskeletal Knee: + knee abnormal to inspection (Left knee is swollen mostly prepatellar area with adjoining redness ) Neurologic normal touch/pain/proprioception and moves all extremities; no focal motor deficits Lymphatic no cervical or axillary lymphadenopathy Discharge Data Allergies Allergy/AdvReac Type Severity Reaction Status Date / Time No Known Allergies Allergy Verified 03/26/24 13:24 Consultations 04/14/24 20:52 ED Decision to Admit Stat Ordered Studies 04/14/24 19:15 US venous duplex leg [US venous doppler LE LT] Stat Hospital Course (1) Sepsis: 73-year-old lady with PMH of CAD, PSVT, PAF/PE DVT s/p IVC filter & on Eliquis, mild (TTE 2023), HTN, HLD, MS on chronic prednisone & Aubagio Rx, neurogenic bladder, ESBL E. coli UTI, left breast cancer status post surgery/radiation, right ankle osteomyelitis, venous stasis/chronic discoloration BLE, chronic anemia [baseline hemoglobin 9], rosacea on chronic doxycycline, skin cancer status post surgery, chronic pain on baclofen pump, past tobacco abuse presented with achy left knee pain and worsening swelling/no recollection of recent trauma. Fever and chills at home. She is being managed for the following: Bursitis of left knee Sepsis POA: Likely secondary to above. Heart rate/temperature/WBC elevated at presentation. Pro-Bib and lactate WNL. Patient coming in with left knee pain. Admitting knee x-ray with moderate prepatellar soft tissues swelling. No acute fracture or dislocation. Severe lateral compartment osteoarthritis. Admitting venous Doppler LLE: Negative for DVT. Status post bedside aspiration of left knee by orthopedics 04/14. Patient started on cefepime 04/14 and daptomycin 04/14 [CPK 34, home statin on hold], continue. Blood cultures have been negative Gram stain of the aspirate fluid did show group B beta strep IV antibiotic will be changed to oral Cefdinir to be continued for a total of 14 days Will apply moist warm compression over the knee Has had PT and OT evaluation earlier this week-during this admission She has been feeling much better and ambulating in the room without any difficulties Her bursitis involving the prepatellar area has improved a lot without any pain and/or distress She will be discharged home this afternoon Immunocompromised patient: Aubagio on hold due to acute infection. Resume once acute issues resolve. Will restart medications for the multiple sclerosis Multiple sclerosis: On chronic prednisone and open acute treatment Rosacea on doxycycline: continue doxycycline. Other chronic medical conditions: Continue with/resume home meds as and when able. hx CAD PAF/PE DVT status post IVC filter placement on Eliquis mild hypertension, c/w home bp meds /w hold parameters. hyperlipidemia on statin Rx history of neurogenic bladder L breast cancer status post surgery/radiation chronic anemia, hemoglobin at baseline rosacea on doxycycline chronic pain on baclofen pump Steroid-induced hyperglycemia rule out DM past tobacco abuse. DVT prophylaxis. Continue home Eliquis Full code Patient daughter Ms. Alyssa Perez, contact #[phone]. Pt dtr Rea was updated over the phone 04/16, answered all her questions. Text document was generated using [employer] voice recognition software. It may contain grammatical or spelling errors. Kindly contact undersigned for clarification of any documentation item in question. Total Time Total Time Spent Total Time Spent (In Minutes): 35 minutes Discharge Plan Discharge Items Patient Disposition: Home - Home Health Services Reason For Visit: SEPSIS Discharge Diagnosis: Left prepatellar bursitis, sepsis POA, multiple sclerosis Activity: Resume your previous activity Non-emergency contact: Primary Care Provider Call non-emergency contact if: you have any medication questions and your sympt oms worsen Follow-up/Referrals: Simi Hernandez CRNP [Primary Care Provider] - 04/26/24 3:00 pm (Date & Time 04/26/2024 3:00 PM Provider iSmi Hernandez CRNP Department [facility] ) Diet: Heart Healthy Addtl Attending Provider Instructions: Please take precautions to avoid falls Continue with the home PT as advised Please finish the course of antibiotic Please keep appointment with your healthcare providers Pending Studies at Discharge: No Stand-Alone Forms: My [facility], Smoking Cessation Medications and DC Order Prescriptions: New metoprolol succinate 25 mg Tablet Extended Release 24 Hr 25 mg PO Q12 Qty: 60 0RF cefdinir 300 mg Capsule 300 mg PO Q12H Qty: 18 0RF Continued prednisone 10 mg tablet 10 mg PO QAM oxybutynin chloride 15 mg tablet extended release 24hr 15 mg PO QAM cholecalciferol (vitamin D3) 1,000 unit capsule 2,000 units PO QAM escitalopram oxalate [Lexapro] 20 mg tablet 20 mg PO QAM tizanidine [Zanaflex] 4 mg tablet 4 mg PO Q6 teriflunomide [Aubagio] 14 mg tablet 14 mg PO QPM doxycycline hyclate 50 mg capsule 50 mg PO Q2D Hold Instructions: Resume on 02/22/24. atorvastatin [Lipitor] 20 mg tablet 20 mg PO QAM multivitamin Tablet 1 tab PO DAILY melatonin 3 mg Tablet 3 mg PO HS omeprazole 40 mg capsule,delayed release(DR/EC) 40 mg PO QAM Baclofen Pump 0 mg SC DIRECTED Rx Instructions: continuous. FAMILY UNSURE OF MAX DOSE BUT IT IS A CONTINOUS PUMP. Eliquis 5 mg tablet 5 mg PO BID sennosides [Senokot] 8.6 mg Tablet 8.6 mg PO QAM Qty: 30 0RF magnesium oxide 400 mg (241.3 mg magnesium) tablet 400 mg PO [facility] Discontinued metoprolol succinate 50 mg tablet extended release 24 hr 50 mg PO Q12 Discharge Orders: Discharge Order (Routine); Ordered 04/19/24 Ordered By: Genesis Guerra Admission Data Admit Date/Time: 04/14/24 23:40 Attending Provider: Genesis Guerra Admit Provider: Jerome Clemente Primary Care Provider: Simi Hernandez Other Providers: Jerome Clemente; Tianna Smith Other Interventions: Discharge Summary Assessment (RN) Last Done: 04/19/24 15:52
== END 2024-04-19 17:38 | disposition home health service (06) | DRG 872 ==
LOC: ED 18:36 → SUATTDRO 23:40 → 2W 23:40

== ENCOUNTER 2024-09-13 17:13 | Inpatient (IN) ==
[2024-09-13 17:49] LABS: Basophils # (auto) 0.03 K/uL (0.00-0.20); Basophils % (auto) 0.4 %; Eosinophils # (auto) 0.02 K/uL (0.00-0.50); Eosinophils % (auto) 0.2 %; Hematocrit (blood only) 31.5 % (37.0-47.0); Hemoglobin 10.1 g/dl (12.0-16.0); Immature Granulocytes # (auto) 0.04 K/uL (0.01-0.20); Immature Granulocytes % (auto) 0.5 %; Lymphocytes % (auto) 5.9 %; Mean Corpuscular Hemoglobin 27.5 pg (25.0-34.0); Mean Corpuscular Hgb Conc 32.1 g/dL (32.0-36.0); Mean Corpuscular Volume 85.8 fL (80.0-100.0); Mean Platelet Volume 11.6 fL (9.4-12.4); Monocytes # (auto) 0.74 K/uL (0.11-0.59); Monocytes % (auto) 8.7 %; Neutrophils % (auto) 84.3 %; Platelet Count 283 K/uL (130-400); RDW Coefficient of Variation 20.8 % (11.5-14.5); RDW Standard Deviation 65.7 fL (36.4-46.3); Red Blood Count 3.67 M/uL (4.20-5.40); White Blood Count 8.53 K/ul (4.8-10.8)
[2024-09-13 18:06] LABS: Albumin Globulin Ratio 1.2 (0.9-2); Albumin Level 3.5 gm/dl (3.4-5.0); Bilirubin,Total 0.3 mg/dl (0.2-1.0); Calcium 8.8 mg/dl (8.6-10.3); Creatinine Clr Calc Pharmacy 47.4 ml/min; Globulin 2.9 gm/dl (2.5-4.0); Potassium 5.1 mmol/L (3.5-5.1); Total Protein 6.4 gm/dl (6.0-8.3)
[2024-09-13 18:09] LABS: Acanthocytes 1+; Ovalocytes 1+; Poikilocytosis Present; Tear Drop Cells 1+
--- NOTE | 2024-09-13 18:21 | Emergency Department Note ---
Impression & Plan Acute leg pain, Cellulitis, Anemia ED Provider Note NAME: NADEEN ANNE AGE: 73 SEX: F : 1950 ARRIVES VIA: Walk-In INFORMANT: Patient ED PROVIDER(S): Sanchez Casarez DO CHIEF COMPLAINT: Right lower extremity swelling HPI: Patient is a 73-year-old female with a past medical history of arthritis, paroxysmal A-fib, fungemia, and DVT who presents to the ER for right lower extremity pain. She notes this has been present for the past several weeks. She saw her PCP 3 days ago and was placed on antibiotics. She has been following with wound care. She was referred in as they were told that her blood work was abnormal. She denies any headache or change in vision. No chest pain or shortness of breath. No nausea, vomiting, or diarrhea. No dysuria, urgency, or frequency. No new tingling or numbness. She notes her right lower extremity is always red and swollen but it is worse than usual. Additional history obtained from family who is present at bedside and notes that there was concern that she may be septic. ADDITIONAL HISTORY OBTAINED: Per HPI Chronic Medical/Social Conditions Affecting Care: Per HPI PAST MEDICAL HISTORY:See Below PAST SURGICAL HISTORY:See Below FAMILY HISTORY:See Below SOCIAL HISTORY:See Below HOME MEDICATIONS:See Below ALLERGIES:See Below VITALS:See Below PHYSICAL EXAMINATION: GENERAL: Sitting up in bed, alert, well appearing, well nourished, no distress, non-toxic EYE EXAM: normal conjunctiva. PERRL and EOM's grossly intact. OROPHARYNX: mucous membranes are moist NECK: supple, no nuchal rigidity, no adenopathy, non-tender LUNGS: Clear to auscultation. Normal chest wall mechanics HEART: no murmurs, S1 normal and S2 normal ABDOMEN: abdomen soft, non-tender, normo-active bowel sounds, no masses, no rebound or guarding. UPPER EXTREMITIES: upper extremities are grossly normal. LOWER EXTREMITIES: Flexion-extension right hip knee and ankle intact. Dressing removed from right lower extremity. Right foot is swollen erythematous and edematous but skin is cool. Erythema tracks up to the midshin. Pulses were obtained with Doppler. NEURO EXAM: Normal sensorium, cranial nerves II-XII grossly intact, normal speech, no gross weakness of arms, no gross weakness of legs. MEDICAL DECISION MAKING: Patient is a 73-year-old female who presents ER for right lower extremity pain. IV was established medicos obtained. Labs show no significant leukocytosis and a mild anemia 10.1 fairly consistent with previous. BMP with slightly elevated glucose at 127. LFTs bilirubin was unremarkable. Pro-Bib slightly elevated at 0.7 and sed rate was elevated as well. UA without white cells to be consistent with UTI. Duplex of the right lower extremity was negative and patient still is on Eliquis. Patient was given IV Rocephin. She was sent in following review of external records in [facility] which shows a white count of 13 and a Pro-Bib elevated at 1. Discussed case with Dr. Jacob for further evaluation management treatment. Patient was updated bedside. Consults/Care Managements Discussions: Per MDM Triage Nursing notes reviewed. Limited review of prior medical records performed Vital Signs: reviewed and remarkable for no significant abnormalities Differential diagnosis: Cellulitis, abscess, MRSA infection, DVT, necrotizing fasciitis, dermatitis, drug eruption, allergic reaction, as well as other pathologies. ER treatment provided: See below Diagnostics interpreted by me include EKG and cardiac monitoring as listed below: -Cardiac Monitoring: An order was placed for continuous cardiac monitoring. The monitor shows a rate of 80 with sinus rhythm. -ECG: Sinus rhythm rate of 76 Normal axis No PVCs QTc 416 -Laboratory studies:Interpreted by me as stated above in MDM and shown below. Imaging studies: Xrays: As interpreted by me: Portable AP upright 1 view of the chest shows no focal infiltrate CTs show:none Duplex shows no DVT Procedures:none Critical Care: None Past Med/Surg History Problem List Anemia (Acute) Cellulitis (Acute) Acute leg pain (Acute) Osteoarthritis of knees, bilateral Knee pain (Acute) Septic prepatellar bursitis (Acute) Paroxysmal atrial fibrillation Wound infection CLABSI (central line-associated bloodstream infection) Bacteremia Fungemia Myocardial strain Tachycardia Rosacea Hypomagnesemia Diarrhea Acute deep vein thrombosis of left lower extremity (Chronic) Traumatic open wound of right lower leg (Acute) Catheter-associated urinary tract infection Sepsis (Acute) Leg wound, right (Acute) Skin tear of left upper extremity (Acute) Chronic refractory osteomyelitis of ankle (Acute) Surgical wound, non healing (Acute) Osteomyelitis of ankle (Acute) Sepsis (Acute) Cellulitis of left lower leg (Acute) Chronic ulcer of right foot (Acute) HX: breast cancer Left breast cancer with surgery and chemo/radiation-left arm restriction Chronic anemia Paroxysmal atrial fibrillation Lower extremity edema (Chronic) Traumatic open wound of left lower leg with delayed healing (Acute) Ulcer of right ankle (Acute) Paroxysmal atrial fibrillation with RVR Hypotension Acute UTI (Acute) UTI (urinary tract infection) (Acute) Status post reverse total replacement of right shoulder (~04/2022) Encounter for pre-operative examination Closed right scapular fracture Sepsis Hypertension Multiple sclerosis Elevated troponin (Acute) Sepsis (Acute) Elevated troponin I level (Acute) Hypotension (Acute) Elevated lactic acid level (Acute) GERD (gastroesophageal reflux disease) controlled, stable per pt CAD (coronary artery disease) Non-obstructive per 06/2021 cardiac cath History of supraventricular tachycardia History of pulmonary embolism ~ 6 yrs ago, IVC filter still in place History of DVT (deep vein thrombosis) ~6 yrs ago Multiple sclerosis (Chronic) Follows with Dr. Walker/[facility] Stable Osteoporosis (Chronic) Neurogenic bladder (Chronic) SELF CATH 2-3 X'S PER DAY *RECENT HOSPITALIZATION FOR UTI Raynaud disease (Chronic) Presence of intrathecal pump (Chronic) baclofen pump in place--status post revision/replacement 08/10/2022 S/P IVC filter (Chronic) H/O left mastectomy (Chronic) with lymph node removal>LEFT ARM RESTRICTION History of open reduction and internal fixation (ORIF) procedure (Chronic) "left hip" S/P partial hysterectomy (Chronic) History of appendectomy (Chronic) Medical History Fever History of recent hospitalization History of blood transfusion Limb alert care status Osteoarthritis of right shoulder History of GI bleed History of non-ST elevation myocardial infarction (NSTEMI) Hx of gastric ulcer Anemia Hypertension Surgical History History of removal of Port-a-Cath (02/09/24) Port-A-Cath in place (09/29/23) S/p reverse total shoulder arthroplasty History of cardiac cath History of esophagogastroduodenoscopy (EGD) History of colonoscopy History of tooth extraction Family History Mother Heart disorder Other No family history of adverse response to anesthesia Social History Smoking Status: Never smoker Tobacco Type: Cigarettes packs per day: 1; Cigarettes Per Day: stopped in 1977; Second Hand Exposure: No; Do You Dip or Chew Tobacco: No; Hx Alcohol Use: No Hx Substance Use: No Preferred Language: Moroccan Communication Ability: Effective Visual Impairment: Limited Hearing Ability: Use of Hearing Aid Museum Registrar Required: No Beliefs That Will Affect Care: None marital status: / Current Living Situation: Alone Current Living Situation Comment: daughters are an hour away but check on her frequently per pt current occupational status: retired How many Children do You have: 3 Feels Safe at Home: Yes Childhood Exposure to Second-Hand Smoke: Yes Diet: regular caffeine: Yes Assistive Devices: Walker and Wheelchair Allergies Allergies Allergy/AdvReac Type Severity Reaction Status Date / Time No Known Allergies Allergy Verified 08/28/24 12:57 Home Meds Home Medications Medication Instructions Recorded Confirmed cholecalciferol (vitamin D3) 25 2,000 units PO QAM 09/18/18 09/13/24 mcg (1,000 unit) capsule escitalopram oxalate 20 mg tablet 20 mg PO QAM 09/18/18 09/13/24 (Lexapro) oxybutynin chloride 15 mg 15 mg PO QAM 09/18/18 09/13/24 tablet,extended release 24 hr prednisone 10 mg tablet 10 mg PO QAM 09/18/18 09/13/24 omeprazole 40 mg capsule,delayed 40 mg PO QAM 07/06/21 09/13/24 release teriflunomide 14 mg tablet 14 mg PO QPM 05/13/22 09/13/24 (Aubagio) doxycycline hyclate 50 mg capsule 50 mg PO Q2D Rosacea 08/10/22 09/13/24 melatonin 3 mg tablet 3 mg PO HS 03/05/23 09/13/24 multivitamin 1 tab PO DAILY 03/05/23 09/13/24 Baclofen Pump 0 mg SC DIRECTED 08/05/23 09/13/24 apixaban 5 mg tablet (Eliquis) 5 mg PO BID 02/03/24 09/13/24 atorvastatin 40 mg tablet 40 mg PO QAM 09/13/24 09/13/24 duloxetine 30 mg capsule,delayed 30 mg PO UD 09/13/24 09/13/24 release sulfamethoxazole 800 1 tab PO BID 09/13/24 09/13/24 mg-trimethoprim 160 mg tablet Previous Rx's Medication Instructions Recorded metoprolol succinate 25 mg 25 mg PO Q12 #60 tabs 04/19/24 tablet,extended release 24 hr tizanidine 4 mg tablet (Zanaflex) 4 mg PO Q6 Muscle Spasm #120 tabs 07/19/24 Results & Data (ED) Vital Signs Vital Signs - 24 hr 09/13/24 17:17 09/13/24 17:35 09/13/24 19:24 Temperature 36.2 C L 36.5 C Temperature Source Temporal Artery Scan Oral Pulse Rate 103 H 74 Pulse Rate [Apical] 76 Respiratory Rate 20 18 Respiratory Effort / Characteristics Non-Labored Spontaneous Respiratory Depth Normal Respiratory Pattern Blood Pressure 116/74 Blood Pressure [Right Arm] 123/76 Blood Pressure Mean 88 Blood Pressure Mean [Right Arm] 91 Blood Pressure Position [Right Arm] Lying Pulse Oximetry 98 96 Oxygen Delivery Method Room Air Room Air Sepsis Recent Fever Within 48 Hours No Sepsis New/Unexplained Change in Mental Status No Sepsis Action Taken by Nursing No Action Required 09/13/24 20:30 09/13/24 21:00 09/13/24 22:00 Temperature Temperature Source Pulse Rate Pulse Rate [Apical] 77 83 90 Respiratory Rate 18 18 18 Respiratory Effort / Characteristics Non-Labored Spontaneous Non-Labored Spontaneous Non-Labored Spontaneous Respiratory Depth Normal Normal Normal Respiratory Pattern Regular Regular Regular Blood Pressure Blood Pressure [Right Arm] 155/97 H 148/75 H 137/85 Blood Pressure Mean Blood Pressure Mean [Right Arm] 116 99 102 Blood Pressure Position [Right Arm] Pulse Oximetry 96 95 95 Oxygen Delivery Method Room Air Room Air Room Air Sepsis Recent Fever Within 48 Hours Sepsis New/Unexplained Change in Mental Status Sepsis Action Taken by Nursing Laboratory Data 09/13/24 17:30 09/13/24 17:30 Lab Results 09/13/24 09/13/24 Range/Units 17:30 20:10 WBC 8.53 (4.8-10.8) K/ul RBC 3.67 L (4.20-5.40) M/uL Hgb 10.1 L (12.0-16.0) g/dl Hct 31.5 L (37.0-47.0) % MCV 85.8 (80.0-100.0) fL MCH 27.5 (25.0-34.0) pg MCHC 32.1 (32.0-36.0) g/dL RDW Std Deviation 65.7 H (36.4-46.3) fL RDW Coeff of Tiffanie 20.8 H (11.5-14.5) % Plt Count 283 (130-400) K/uL MPV 11.6 (9.4-12.4) fL Immature Gran % (Auto) 0.5 % Neut % (Auto) 84.3 % Lymph % (Auto) 5.9 % Story % (Auto) 8.7 % Eos % (Auto) 0.2 % Baso % (Auto) 0.4 % Neut # (Auto) 7.20 H (1.40-6.50) K/uL Lymph # (Auto) 0.50 L (1.20-3.40) K/uL Story # (Auto) 0.74 H (0.11-0.59) K/uL Eos # (Auto) 0.02 (0.00-0.50) K/uL Baso # (Auto) 0.03 (0.00-0.20) K/uL Immature Gran # (Auto) 0.04 (0.01-0.20) K/uL Poikilocytosis Present Tear Drop Cells 1+ Ovalocytes 1+ Acanthocytes (Spur) 1+ ESR 74 H (0-30) mm/hr APTT 26 (21-31) Seconds PTT Ratio 1.0 Sodium 137 (136-145) mmol/L Potassium 5.1 (3.5-5.1) mmol/L Chloride 103 (98-107) mmol/L Carbon Dioxide 28 (21-32) mmol/L Anion Gap 6 (3-11) BUN 31 H (6-23) mg/dl Creatinine 0.94 (0.6-1.2) mg/dl Est Cr Clr Drug Dosing 47.4 ml/min eGFR 64.87 BUN/Creatinine Ratio 33.0 H (10-20) Glucose 127 H (70-99(Fasting)) mg/dl Calcium 8.8 (8.6-10.3) mg/dl Total Bilirubin 0.3 (0.2-1.0) mg/dl AST 26 (13-39) U/L ALT 18 (7-52) U/L Alkaline Phosphatase 54 (34-104) U/L Total Creatine Kinase 58 (26-192) U/L C-Reactive Protein 3.82 H (0-0.5) mg/dl Total Protein 6.4 (6.0-8.3) gm/dl Albumin 3.5 (3.4-5.0) gm/dl Globulin 2.9 (2.5-4.0) gm/dl Albumin/Globulin Ratio 1.2 (0.9-2) Procalcitonin 0.70 H (0-0.5) ng/ml Urine Color Yellow Urine Appearance Turbid A (Clear) Urine pH 5.5 (4.5-7.5) Ur Specific Anderson 1.027 (1.000-1.030) Urine Protein Negative (Negative) Urine Glucose (UA) Negative (Negative) Urine Ketones Negative (Negative) Urine Blood Negative (Negative) Urine Nitrite Negative (Negative) Urine Bilirubin Negative (Negative) Urine Urobilinogen Negative (Negative) Ur Leukocyte Esterase Trace H (Negative) Urine WBC (Auto) 0-5 (0-5) /hpf Urine RBC (Auto) 0-2 (0-2) /hpf U Hyaline Cast (Auto) 0-2 (0-2) /lpf U Epithel Cells (Auto) 0-2 (0-2) /hpf Urine Bacteria (Auto) None Seen (None Seen) Uric Acid Crystals Present A (None Prsent) Administered Medications Discontinued Medications Ceftriaxone Sodium (Rocephin) 2,000 mg in 50 mls @ 100 mls/hr IV NOW STA Stop: 09/13/24 21:41 Last Infusion: 09/13/24 22:23 Dose: Infused Documented By: Admin: 09/13/24 21:42 Dose: 100 mls/hr Documented By: ANNEMARIE Doxycycline Hyclate 100 mg/ (Dextrose) 100 mls @ 50 mls/hr IV NOW STA Stop: 09/13/24 23:29 Last Admin: 09/13/24 22:16 Dose: 50 mls/hr Documented By: ALLISON Cefepime HCl (Maxipime 2000mg) 2,000 mg in 20 mls @ 5 mls/min IV ONE STA; Protocol Stop: 09/13/24 22:27 Last Admin: 09/13/24 23:08 Dose: 5 mls/min Documented By: DYLLAN Ioversol (Optiray 320 100ml) 100 ml IV ONCE ONE Stop: 09/13/24 23:12 Last Admin: 09/13/24 23:11 Dose: 93 ml Documented By: NATY Imaging Data Radiologist's Impression: Venous Doppler Study 09/13/24 18:21 Exam(s): US VENOUS RIGHT LOWER EXTREMITY EXAM: US Duplex Right Lower Extremity Veins CLINICAL HISTORY: Reason for exam: rle pain. TECHNIQUE: Real-time duplex ultrasound scan of the right lower extremity veins integrating B-mode two-dimensional vascular structure, Doppler spectral analysis, color flow Doppler imaging and compression. COMPARISON: No relevant prior studies available. FINDINGS: Deep veins: Unremarkable. The visualized deep veins of the right lower extremity are compressible with color flow. No visualized thrombus. Superficial veins: Unremarkable. Soft tissues: No acute findings. IMPRESSION: No DVT within the right lower extremity. Electronically signed by: Elmer Mathew MD 09/13/24 22:46 PM Discharge Plan Visit Data Chief Complaint: Leg Injury/Pain Stated Complaint: SEPSIS, FEVER ED Provider: Sanchez Casarez Discharge Problem: Acute leg pain, Cellulitis, Anemia Discharge Problem: Acute leg pain Qualifiers: Laterality: right Qualified Code(s): M79.604 - Pain in right leg Cellulitis Qualifiers: Site of cellulitis: unspecified site Qualified Code(s): L03.90 - Cellulitis, unspecified Anemia Qualifiers: Anemia type: unspecified type Qualified Code(s): D64.9 - Anemia, unspecified
[2024-09-13 20:59] LABS: Appearance Urine Turbid (Clear); Bacteria Urine Automated None Seen (None Seen); Bilirubin Urine Negative (Negative); Blood Urine Negative (Negative); Cast Urine Automated 0-2 /lpf (0-2); Color Urine Yellow; Epithelial Cell Urine Auto 0-2 /hpf (0-2); Glucose Urine UA Negative (Negative); Ketones Urine Negative (Negative); Leukocyte Esterase Urine Trace (Negative); Nitrite Urine Negative (Negative); Protein Urine Negative (Negative); RBC Urine Automated 0-2 /hpf (0-2); Specific Gravity Urine 1.027 (1.000-1.030); Uric Acid Crystals Urine Present (None Prsent); Urobilinogen Urine Negative (Negative); WBC Urine Automated 0-5 /hpf (0-5); pH Urine 5.5 (4.5-7.5)
[2024-09-13] MEDS: cefTRIAXone SODIUM 2,000 MG/50 ML BAG IV STA (21:42)
[2024-09-13] MEDS ORDERED: ACETAMINOPHEN 325 MG TAB PO PRN (22:14)
[2024-09-13] MEDS ORDERED: oxyCODONE HCL IR 5 MG TAB (IMMEDIATE RELEASE) PO PRN (22:14)
[2024-09-13] MEDS ORDERED: PROMETHAZINE 6.25 MG/50.25 ML BAG IV PRN (22:14)
--- NOTE | 2024-09-13 22:15 | History & Physical Report ---
Date of Service September 13, 2024 Assessment & Plan (1) Cellulitis: Plan: Recurrent RLE cellulitis History osteomyelitis as per records, chronic right ankle ulcer Immunocompromised patient MS on chronic prednisone and Aubagio Rx Rule out abscess/recurrent osteomyelitis No sepsis for now hx CAD PAF/PE DVT status post IVC filter placement on Eliquis mild hypertension, stable hyperlipidemia on statin Rx history of neurogenic bladder L breast cancer status post surgery/radiation chronic anemia, hemoglobin at baseline chronic pain on baclofen pump Hyperglycemia likely prediabetes, hemoglobin A1c of 5.8 this year past tobacco abuse. GMF CS, Doxycycline and Cefepime CT right tibia-fibula, right foot rule out abscess/osteomyelitis MRI if CT studies do not show definitive osteomyelitis Further management contingent on imaging results Hold Eliquis until imaging results out IV heparin while Eliquis on hold DVT prophylaxis. IV heparin Full code Patient daughter requesting updates from providers. Ms. Alyssa Perez, contact #[phone]. Text document was generated using Bot[employer] voice recognition software. It may contain grammatical or spelling errors. Kindly contact undersigned for clarification of any documentation item in question. History of Present Illness Chief Complaint: Worsening R lower leg/foot swelling Primary Care Provider: KEVIN Lema History obtained from patient, family, and records. Medical history significant for CAD, PSVT,PAF/PE DVT status post IVC filter placement on Eliquis, mild (TTE 2023), hypertension, hyperlipidemia, , MS on chronic prednisone and Aubagio Rx, history of neurogenic bladder, history ESBL E. coli UTI, L breast cancer status post surgery/radiation, past history right ankle osteomyelitis, chronic right ankle ulcer, history of venous stasis as per records,, chronic anemia (baseline hemoglobin 9-10), rosacea on doxycycline, skin cancer status post surgery, chronic pain on baclofen pump, past tobacco abuse. Last confinement March 2024 for sepsis secondary to left prepatellar bursitis. Group B strep on cultures. Patient discharged on cefdinir course. Recent ER visit 3 weeks ago for RLE pain and numbness. Patient discharged on outpatient doxycycline and Keflex course. Swelling improved with medication. Outpatient EMG recommended by PCP on follow-up visit 2 weeks ago. Patient noted recurrent right lower leg/foot swelling with clear drainage about shortly after after EMG procedure. Denies recent falls or trauma. No chest pain, no SOB. Bactrim course initiated by PCP on outpatient follow-up visit 2 days ago.. MRI studies of the of the lower extremity recommended. Wound cultures obtained at [facility] [employer] [employer] [facility] 2 days ago. Patient directed to ER because of elevated outpatient WBC and procalcitonin levels. Ceftriaxone administered at the ER. MED hx as above : OPERATIONS: She has had left mastectomy, left hip surgery, IVC filter placement, hysterectomy, shoulder surgery, dental surgery, spinal pain pump placement, appendectomy family by fracture surgery, a port placement/removal, bone debridement FAMILY HISTORY: thyroid cancer, heart disease PERSONAL AND SOCIAL HISTORY: Past tobacco abuse. No chronic intake of alcoholic beverages. 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 Allergies Allergy/AdvReac Type Severity Reaction Status Date / Time No Known Allergies Allergy Verified 08/28/24 12:57 Home Medications Medication Instructions Recorded Confirmed Type cholecalciferol (vitamin D3) 25 2,000 units PO QAM 09/18/18 09/13/24 History mcg (1,000 unit) capsule escitalopram oxalate 20 mg tablet 20 mg PO QAM 09/18/18 09/13/24 History (Lexapro) oxybutynin chloride 15 mg 15 mg PO QAM 09/18/18 09/13/24 History tablet,extended release 24 hr prednisone 10 mg tablet 10 mg PO QAM 09/18/18 09/13/24 History omeprazole 40 mg capsule,delayed 40 mg PO QAM 07/06/21 09/13/24 History release teriflunomide 14 mg tablet 14 mg PO QPM 05/13/22 09/13/24 History (Aubagio) doxycycline hyclate 50 mg capsule 50 mg PO Q2D Rosacea 08/10/22 09/13/24 History melatonin 3 mg tablet 3 mg PO HS 03/05/23 09/13/24 History multivitamin 1 tab PO DAILY 03/05/23 09/13/24 History Baclofen Pump 0 mg SC DIRECTED 08/05/23 09/13/24 History apixaban 5 mg tablet (Eliquis) 5 mg PO BID 02/03/24 09/13/24 History metoprolol succinate 25 mg 25 mg PO Q12 #60 tabs 04/19/24 09/13/24 Rx tablet,extended release 24 hr tizanidine 4 mg tablet (Zanaflex) 4 mg PO Q6 Muscle Spasm #120 tabs 07/19/24 09/13/24 Rx atorvastatin 40 mg tablet 40 mg PO QAM 09/13/24 09/13/24 History duloxetine 30 mg capsule,delayed 30 mg PO DAILY 09/13/24 09/14/24 History release sulfamethoxazole 800 1 tab PO BID 09/13/24 09/13/24 History mg-trimethoprim 160 mg tablet Past Med/Surg History Problem List Anemia (Acute) Cellulitis (Acute) Acute leg pain (Acute) Osteoarthritis of knees, bilateral Knee pain (Acute) Septic prepatellar bursitis (Acute) Paroxysmal atrial fibrillation Wound infection CLABSI (central line-associated bloodstream infection) Bacteremia Fungemia Myocardial strain Tachycardia Rosacea Hypomagnesemia Diarrhea Acute deep vein thrombosis of left lower extremity (Chronic) Traumatic open wound of right lower leg (Acute) Catheter-associated urinary tract infection Sepsis (Acute) Leg wound, right (Acute) Skin tear of left upper extremity (Acute) Chronic refractory osteomyelitis of ankle (Acute) Surgical wound, non healing (Acute) Osteomyelitis of ankle (Acute) Sepsis (Acute) Cellulitis of left lower leg (Acute) Chronic ulcer of right foot (Acute) HX: breast cancer Left breast cancer with surgery and chemo/radiation-left arm restriction Chronic anemia Paroxysmal atrial fibrillation Lower extremity edema (Chronic) Traumatic open wound of left lower leg with delayed healing (Acute) Ulcer of right ankle (Acute) Paroxysmal atrial fibrillation with RVR Hypotension Acute UTI (Acute) UTI (urinary tract infection) (Acute) Status post reverse total replacement of right shoulder (~04/2022) Encounter for pre-operative examination Closed right scapular fracture Sepsis Hypertension Multiple sclerosis Elevated troponin (Acute) Sepsis (Acute) Elevated troponin I level (Acute) Hypotension (Acute) Elevated lactic acid level (Acute) GERD (gastroesophageal reflux disease) controlled, stable per pt CAD (coronary artery disease) Non-obstructive per 06/2021 cardiac cath History of supraventricular tachycardia History of pulmonary embolism ~ 6 yrs ago, IVC filter still in place History of DVT (deep vein thrombosis) ~6 yrs ago Multiple sclerosis (Chronic) Follows with Dr. Walker/[facility] Stable Osteoporosis (Chronic) Neurogenic bladder (Chronic) SELF CATH 2-3 X'S PER DAY *RECENT HOSPITALIZATION FOR UTI Raynaud disease (Chronic) Presence of intrathecal pump (Chronic) baclofen pump in place--status post revision/replacement 08/10/2022 S/P IVC filter (Chronic) H/O left mastectomy (Chronic) with lymph node removal>LEFT ARM RESTRICTION History of open reduction and internal fixation (ORIF) procedure (Chronic) "left hip" S/P partial hysterectomy (Chronic) History of appendectomy (Chronic) Medical History Fever History of recent hospitalization History of blood transfusion Limb alert care status Osteoarthritis of right shoulder History of GI bleed History of non-ST elevation myocardial infarction (NSTEMI) Hx of gastric ulcer Anemia Hypertension Surgical History History of removal of Port-a-Cath (02/09/24) Port-A-Cath in place (09/29/23) S/p reverse total shoulder arthroplasty History of cardiac cath History of esophagogastroduodenoscopy (EGD) History of colonoscopy History of tooth extraction Family History Mother Heart disorder Other No family history of adverse response to anesthesia Social History Smoking Status: Former smoker Tobacco Type: Cigarettes packs per day: 1; Cigarettes Per Day: stopped in 1977; Second Hand Exposure: No; Do You Dip or Chew Tobacco: No; Hx Alcohol Use: No Hx Substance Use: No Preferred Language: Salvadorean Communication Ability: Effective Visual Impairment: Limited Hearing Ability: Use of Hearing Aid Ride Mechanic Required: No Beliefs That Will Affect Care: None marital status: / Current Living Situation: Alone Current Living Situation Comment: daughters are an hour away but check on her frequently per pt current occupational status: retired How many Children do You have: 3 Other Information That Helps Us Care for You: No Feels Safe at Home: Yes Safety Concerns: Feels Safe At This Time Childhood Exposure to Second-Hand Smoke: Yes Diet: regular caffeine: Yes Assistive Devices: Glasses, Hearing Aid - Bilateral, Walker and Wheelchair Assistive Devices Comment: reading glasses Review of Systems Review of Systems: As per HPI, all other systems reviewed and negative Physical Exam Physical Exam: GENERAL: Comfortable, pleasant, slightly hard of hearing, no respiratory dis tress SKIN: Pallor, warm HEENT: Pale palpebral conjunctivae, no ptosis, dry buccal mucosa NECK : Supple, no tenderness CHEST : CTA, no tenderness HEART : RRR, systolic murmur ABDOMEN: Some distention, no tenderness tenderness EXTREMITIES : Tender RLE/right foot swelling NEUROLOGIC : Coherent, no facial asymmetry, mild hearing impairment, gait and stance not assessed Results & Data Results & Data Vital Signs (Past 12 Hours) Vital Signs Temp Pulse Pulse Resp BP BP Pulse Ox 09/13/24 21:00 83 18 148/75 H 95 09/13/24 20:30 77 18 155/97 H 96 09/13/24 19:24 74 09/13/24 17:35 36.5 C 76 18 123/76 96 09/13/24 17:17 36.2 C L 103 H 20 116/74 98 O2 Del Method 09/13/24 21:00 Room Air 09/13/24 20:30 Room Air 09/13/24 19:24 09/13/24 17:35 Room Air 09/13/24 17:17 Room Air Laboratory Results Laboratory Results WBC 8.53 K/ul (4.8-10.8) 09/13/24 17:30 RBC 3.67 M/uL (4.20-5.40) L 09/13/24 17:30 Hgb 10.1 g/dl (12.0-16.0) L 09/13/24 17:30 Hct 31.5 % (37.0-47.0) L 09/13/24 17:30 MCV 85.8 fL (80.0-100.0) 09/13/24 17:30 MCH 27.5 pg (25.0-34.0) 09/13/24 17:30 MCHC 32.1 g/dL (32.0-36.0) 09/13/24 17:30 RDW Std Deviation 65.7 fL (36.4-46.3) H 09/13/24 17:30 RDW Coeff of Tiffanie 20.8 % (11.5-14.5) H 09/13/24 17:30 Plt Count 283 K/uL (130-400) 09/13/24 17:30 MPV 11.6 fL (9.4-12.4) 09/13/24 17:30 Immature Gran % (Auto) 0.5 % 09/13/24 17:30 Neut % (Auto) 84.3 % 09/13/24 17:30 Lymph % (Auto) 5.9 % 09/13/24 17:30 [place] % (Auto) 8.7 % 09/13/24 17:30 Eos % (Auto) 0.2 % 09/13/24 17:30 Baso % (Auto) 0.4 % 09/13/24 17:30 Neut # (Auto) 7.20 K/uL (1.40-6.50) H 09/13/24 17:30 Lymph # (Auto) 0.50 K/uL (1.20-3.40) L 09/13/24 17:30 [place] # (Auto) 0.74 K/uL (0.11-0.59) H 09/13/24 17:30 Eos # (Auto) 0.02 K/uL (0.00-0.50) 09/13/24 17:30 Baso # (Auto) 0.03 K/uL (0.00-0.20) 09/13/24 17:30 Immature Gran # (Auto) 0.04 K/uL (0.01-0.20) 09/13/24 17:30 Poikilocytosis Present 09/13/24 17:30 Tear Drop Cells 1+ 09/13/24 17:30 Ovalocytes 1+ 09/13/24 17:30 Acanthocytes (Spur) 1+ 09/13/24 17:30 Sodium 137 mmol/L (136-145) 09/13/24 17:30 Potassium 5.1 mmol/L (3.5-5.1) 09/13/24 17:30 Chloride 103 mmol/L (98-107) 09/13/24 17:30 Carbon Dioxide 28 mmol/L (21-32) 09/13/24 17:30 Anion Gap 6 (3-11) 09/13/24 17:30 BUN 31 mg/dl (6-23) H 09/13/24 17:30 Creatinine 0.94 mg/dl (0.6-1.2) 09/13/24 17: Est Cr Clr Drug Dosing 47.4 ml/min 09/13/24 17:30 eGFR 64.87 09/13/24 17:30 BUN/Creatinine Ratio 33.0 (10-20) H 09/13/24 17:30 Glucose 127 mg/dl (70-99(Fasting)) H 09/13/24 17:30 Calcium 8.8 mg/dl (8.6-10.3) 09/13/24 17:30 Total Bilirubin 0.3 mg/dl (0.2-1.0) 09/13/24 17:30 AST 26 U/L (13-39) 09/13/24 17:30 ALT 18 U/L (7-52) 09/13/24 17:30 Alkaline Phosphatase 54 U/L (34-104) 09/13/24 17:30 Total Creatine Kinase 58 U/L (26-192) 09/13/24 17:30 Total Protein 6.4 gm/dl (6.0-8.3) 09/13/24 17:30 Albumin 3.5 gm/dl (3.4-5.0) 09/13/24 17:30 Globulin 2.9 gm/dl (2.5-4.0) 09/13/24 17:30 Albumin/Globulin Ratio 1.2 (0.9-2) 09/13/24 17:30 Procalcitonin 0.70 ng/ml (0-0.5) H 09/13/24 17:30 Urine Color Yellow 09/13/24 20:10 Urine Appearance Turbid (Clear) A 09/13/24 20:10 Urine pH 5.5 (4.5-7.5) 09/13/24 20:10 Ur Specific [place] 1.027 (1.000-1.030) 09/13/24 20:10 Urine Protein Negative (Negative) 09/13/24 20:10 Urine Glucose (UA) Negative (Negative) 09/13/24 20:10 Urine Ketones Negative (Negative) 09/13/24 20:10 Urine Blood Negative (Negative) 09/13/24 20:10 Urine Nitrite Negative (Negative) 09/13/24 20:10 Urine Bilirubin Negative (Negative) 09/13/24 20:10 Urine Urobilinogen Negative (Negative) 09/13/24 20:10 Ur Leukocyte Esterase Trace (Negative) H 09/13/24 20:10 Urine WBC (Auto) 0-5 /hpf (0-5) 09/13/24 20:10 Urine RBC (Auto) 0-2 /hpf (0-2) 09/13/24 20:10 U Hyaline Cast (Auto) 0-2 /lpf (0-2) 09/13/24 20:10 U Epithel Cells (Auto) 0-2 /hpf (0-2) 09/13/24 20:10 Urine Bacteria (Auto) None Seen (None Seen) 09/13/24 20:10 Uric Acid Crystals Present (None Prsent) A 09/13/24 20:10 Diagnostic Findings Chest x-ray as per my interpretation cardiomegaly, atelectasis Code Status & VTE Plan VTE Prophylaxis Plan VTE Prophylaxis will be ordered: Yes (1) Cellulitis Site of cellulitis: unspecified site Qualified Code(s): L03.90 - Cellulitis, unspecified
[2024-09-13] MEDS: DOXYCYCLINE HYCLATE 100 MG in DEXTROSE 5% MINI-B 100 ML IV STA (22:16)
--- NOTE | 2024-09-13 22:47 | Ultrasound Report ---
Exam(s): US VENOUS RIGHT LOWER EXTREMITY EXAM: US Duplex Right Lower Extremity Veins CLINICAL HISTORY: Reason for exam: rle pain. TECHNIQUE: Real-time duplex ultrasound scan of the right lower extremity veins integrating B-mode two-dimensional vascular structure, Doppler spectral analysis, color flow Doppler imaging and compression. COMPARISON: No relevant prior studies available. FINDINGS: Deep veins: Unremarkable. The visualized deep veins of the right lower extremity are compressible with color flow. No visualized thrombus. Superficial veins: Unremarkable. Soft tissues: No acute findings. IMPRESSION: No DVT within the right lower extremity. Electronically signed by: Elmer Mathew MD 09/13/24 22:46 PM
[2024-09-13] MEDS: CEFEPIME 2000MG 2,000 MG/20 ML SYR IV STA (23:08)
[2024-09-13] MEDS: OPTIRAY 320 100ml IV ONE (23:11)
[2024-09-13 23:23] LABS: C Reactive Protein 3.82 mg/dl (0-0.5)
[2024-09-13 23:41] LABS: Partial Thromboplastin Time 26 Seconds (21-31)
[2024-09-14] MEDS: tiZANidine HCL 4 MG TABLET PO SCH (00:13)
[2024-09-14] MEDS: MELATONIN 3 MG TAB PO STA (00:13)
[2024-09-14] MEDS: METOPROLOL SUCC 25MG EXT REL TAB PO STA (00:13)
[2024-09-14] MEDS: BACLOFEN PAIN PUMP IT SCH (00:15)
[2024-09-14] MEDS: SODIUM CHLORIDE 0.9% 1,000 ML IV STA (00:17)
--- NOTE | 2024-09-14 00:47 | CT Scan Report ---
Exam(s): CT RIGHT FOOT With Contrast IV Amt: 93 ml optiray 320 EXAM: CT Right Lower Extremity With Intravenous Contrast, Foot CLINICAL HISTORY: Reason for exam: swelling. TECHNIQUE: Axial computed tomography images of the right foot with intravenous contrast. Automated exposure control was utilized for the study. A dose lowering technique was utilized adhering to the principles of ALARA. CONTRAST: Patient received 93 ml optiray 320 of IV contrast COMPARISON: No relevant prior studies available. FINDINGS: Bones/joints: Unremarkable. No acute fracture. No dislocation. No CT evidence of osteomyelitis. Soft tissues: Moderate subcutaneous edema throughout the RIGHT foot, concerning for cellulitis. Correlate with physical exam. Atrophy of the foot musculature, correlate for diabetes. No radiopaque foreign body. No fluid collection, abscess, or subcutaneous air. IMPRESSION: 1. No fluid collection, abscess, or subcutaneous air. 2. No CT evidence of osteomyelitis. 3. Moderate subcutaneous edema throughout the RIGHT foot, concerning for cellulitis. Correlate with physical exam. Electronically signed by: Antonio Dukes MD 09/14/24 00:46 AM
--- NOTE | 2024-09-14 02:03 | CT Scan Report ---
Exam(s): CT EXTREMITY RIGHT LOWER With Contrast IV Amt: 93 ml optiray 320 EXAM: CT Right Lower Extremity With Intravenous Contrast CLINICAL HISTORY: Reason for exam: swelling. TECHNIQUE: Axial computed tomography images of the right lower extremity with intravenous contrast. CTDI is 6.03 mGy and DLP is 420.9 mGy-cm. Automated exposure control was utilized for the study. A dose lowering technique was utilized adhering to the principles of ALARA. CONTRAST: Patient received 93 ml optiray 320 of IV contrast COMPARISON: No relevant prior studies available. FINDINGS: Bones/joints: Severe osteoarthritis of the knee joint. Moderate knee joint effusion. No acute fracture. No dislocation. Soft tissues: Circumferential subcutaneous edema. Other findings: No fluid collection or abscess. IMPRESSION: 1. Circumferential subcutaneous edema. 2. Severe osteoarthritis of the knee joint. Moderate knee joint effusion. 3. No fluid collection or abscess. Electronically signed by: Antonio Dukes MD 09/14/24 02:02 AM
[2024-09-14] MEDS ORDERED: Heparin IV Adult Wt-Based Low-Dose *NO* INITIAL Bolus Protocol IV STA (04:36)
[2024-09-14 05:51] LABS: Basophils # (auto) 0.04 K/uL (0.00-0.20); Basophils % (auto) 0.8 %; Eosinophils # (auto) 0.23 K/uL (0.00-0.50); Eosinophils % (auto) 4.4 %; Hematocrit (blood only) 27.1 % (37.0-47.0); Hemoglobin 9.1 g/dl (12.0-16.0); Immature Granulocytes # (auto) 0.03 K/uL (0.01-0.20); Immature Granulocytes % (auto) 0.6 %; Lymphocytes % (auto) 18.9 %; Mean Corpuscular Hemoglobin 27.9 pg (25.0-34.0); Mean Corpuscular Hgb Conc 33.6 g/dL (32.0-36.0); Mean Corpuscular Volume 83.1 fL (80.0-100.0); Mean Platelet Volume 11.1 fL (9.4-12.4); Monocytes # (auto) 0.69 K/uL (0.11-0.59); Monocytes % (auto) 13.1 %; Neutrophils # (auto) 3.29 K/uL (1.40-6.50); Neutrophils % (auto) 62.2 %; Platelet Count 266 K/uL (130-400); RDW Coefficient of Variation 20.5 % (11.5-14.5); RDW Standard Deviation 62.6 fL (36.4-46.3); Red Blood Count 3.26 M/uL (4.20-5.40); White Blood Count 5.28 K/ul (4.8-10.8)
[2024-09-14 06:03] LABS: Partial Thromboplastin Time 26 Seconds (21-31); Prothrombin Time 10.6 Seconds (9.0-12.0)
[2024-09-14 06:08] LABS: BUN Creatinine Ratio 31.8 (10-20); Calcium 8.3 mg/dl (8.6-10.3); Creatinine Clr Calc Pharmacy 50.6 ml/min; Potassium 4.3 mmol/L (3.5-5.1)
[2024-09-14] MEDS: CEFEPIME 2000MG 2,000 MG/20 ML SYR IV SCH (06:17)
[2024-09-14] MEDS: HEPARIN SODIUM/DEXTROSE 25,000 UNITS/500 ML BAG IV SCH (06:24)
[2024-09-14 06:25] LABS: Poikilocytosis Present; Polychromasia 1+
[2024-09-14 07:37] LABS: Toxic Vacuolation 2+
[2024-09-14 07:45] LABS: Toxic Vacuolation 2+
--- NOTE | 2024-09-14 07:49 | Electrocardiogram Report ---
Test Reason : Blood Pressure : */* mmHG Vent. Rate : 76 BPM Atrial Rate : 76 BPM P-R Int : 162 ms QRS Dur : 62 ms QT Int : 370 ms P-R-T Axes : 51 9 48 degrees QTcB Int : 416 ms Normal sinus rhythm Old Anteroseptal infarct (cited on or before 10-Feb-2024) Peaked T waves(consider ischemia,hyperkalemia,etc.) Abnormal ECG When compared with ECG of 17-Apr-2024 07:01, Premature atrial complexes are no longer Present Peaked T waves now present Confirmed by Navneet Sen ([id number]) on 09/14/2024 7:49:29 AM Referred By: Simi Hernandez Confirmed By: Navneet Sen
--- NOTE | 2024-09-14 08:13 | XRay Report ---
XR KUB pre MRI CLINICAL HISTORY: pre mri, px w pain pump TECHNIQUE: 1 view of the abdomen was obtained. Comparison: Comparison is made to abdomen radiograph 05/09/2023 FINDINGS: Stable IUD in battery-powered device in satisfactory alignment. Degenerative changes are seen in the visualized skeleton. Left hip arthroplasty is seen. The bowel gas pattern is nonobstructive. Small st ool burden is seen. IMPRESSION: Expected evolution of pain pump. ACT 112: Negative or not required by law. Electronically signed by: Morales Hanna M.D. 09/14/2024 8:11 AM
--- NOTE | 2024-09-14 08:27 | XRay Report ---
XR chest 1V portable CLINICAL HISTORY: leg swelling TECHNIQUE: Single frontal radiograph of the chest was obtained. Comparison: Comparison is made to chest radiograph 08/23/2024 FINDINGS: No lines and tubes are seen. The cardiomediastinal silhouette is normal. The lungs are clear. No evid ence of pleural effusion or pneumothorax. IMPRESSION: No acute chest disease. ACT 112: Negative or not required by law. Electronically signed by: Morales Hanna M.D. 09/14/2024 8:26 AM
--- NOTE | 2024-09-14 08:28 | Hospitalist Progress Note ---
Date of Service September 14, 2024 Assessment & Plan (1) Cellulitis of right lower extremity: Plan Kandy Shelby is a 73y/o F with PMHx significant for dyslipidemia, hiatal hernia, paroxysmal atrial fibrillation, PSVT, Raynaud's syndrome, CAD, HTN, history ESBL E. coli UTI, prior DVT with pulmonary emboli s/p IVC filter placement [on Eliquis], nonrheumatic aortic valve stenosis, history of NSTEMI, GERD with esophagitis, protein-calorie malnutrition, neurogenic bladder, multiple sclerosis [on chronic prednisone + Aubagio], polyneuropathy, chronic pain on Baclofen pump, tobacco use, anemia of chronic disease [baseline Hgb ~9-10], depression with anxiety, sicca syndrome, history of nonmelanoma skin cancer s/p Mohs operation, left breast cancer s/p radiation + surgery, rosacea [on doxycycline], right foot drop, bilateral lower extremity venous stasis, chronic osteomyelitis of the right fibula, chronic right lateral ankle wound and recurrent right lower extremity cellulitis who presented to the ED on 09/13/2024 for evaluation of right lower extremity pain. Patient was previously admitted under our service back in January 2024 with sepsis/bacteremia secondary to UTI and right lower extremity cellulitis + osteomyelitis. Blood cultures were positive for fungus and Group B strep/Enterococcus. She completed 2 weeks of IV ampicillin therapy and 2 weeks of oral fluconazole therapy. She was recently in the [facility] ED on 08/23/2024 and was prescribed a course of oral doxycycline + Keflex due to bilateral lower extremity cellulitis. Patient was most recently seen by her PCP on 09/11/2024 as her right lower extremity was seeping and became erythematous. This reportedly started to occur following an EMG she had done at the [facility] on 09/06/2024, which showed evidence of severe sensorimotor polyneuropathy. She was started on a 10-day course of Bactrim on 09/11/2024. Patient also saw Dr. Andrea Velasco at [facility] on 09/11/2024 where it was noted that she have a right ankle ulcer with serous drainage and surrounding erythema. A wound culture was taken at that visit. She was also then prescribed a course of Keflex to take in addition to the Bactrim. Recurrent Cellulitis of RLE, C/F Osteomyelitis: RLE venous doppler negative for DVT. CXR with no acute cardiopulmonary findings. RLE CT revealed severe osteoarthritis of the knee joint and moderate knee joint effusion R foot CT without evidence of osteomyelitis however does show moderate subcutaneous edema consistent with cellulitis. R foot MRI compatible with cellulitis and possible minimal first digit distal phalanx osteomyelitis, no evidence of abscess. R ankle MRI with subcutaneous edema suggestive of cellulitis but no evidence of acute osteomyelitis nor abscess. RLE MRI with no evidence of osteomyelitis within the tibia or fibula however does note subcutaneous fluid reflecting cellulitis or edema. Ortho consulted regarding her R knee effusion and possible osteomyelitis as per above, appreciate their input/recommendations. Blood cultures pending. Procalcitonin 0.70, CRP 3.82, ESR 74 yesterday however no evidence of sepsis on admission. Currently on IV cefepime + oral doxycycline - continue. Probiotic added on. Consulted HIM to get the wound culture results from [facility] as mentioned above, waiting to hear back. Wound care nurse consulted given R lateral ankle ulceration. Paroxysmal Atrial Fibrillation, HTN & H/O DVT + Pulmonary Emboli: Home Eliquis on hold for now pending MRI results and possible need for surgical intervention. Continue IV heparin for DVT prophylaxis. Continue home metoprolol succinate. BP has remained stable. CAD, HLD & H/O NSTEMI Grade I Diastolic Dysfunction: Patient follows with Camille Cuevas PA-C at [facility], [facility]. Continue atorvastatin. Most recent echo done 02/03/2024 during previous admission --> LVEF>70%, mild concentric LVH, no regional wall motion abnormalities, grade I diastolic dysfunction and mild valvular aortic stenosis. IVF stopped, updated echocardiogram pending. Started her on po Lasix 20mg daily as she is not currently on home diuretic therapy and has BLE 2-3+ edema/swelling on exam. 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 She follows with Dr. Andrea Walker at [facility], [facility]. Patient is on chronic prednisone therapy in addition to Aubagio daily - continue. Notably immunocompromised given chronic steroid use. Chronic Back Pain: Patient with an indwelling intrathecal Baclofen pump in place [employer]. Has seen [place] [facility] for pump checks previously. Per pain management --> "There is no urgent reason to interrogate her pump immediately after the MRI due to her current minimal dose and the fact that her motor stall recovery will take likely greater than 10 hours. Patient may utilize tizanidine for any associated breakthrough spasm that may occur during this timeframe. Will plan to interrogate her pump on Tuesday09/17/24 if the patient remains admitted." Other Chronic Medical Conditions: GERD, depression with anxiety, polyneuropathy --> Continue home medications for these specific conditions as prescribed. [employer]ER oral doxycycline for rosacea on hold for now. DVT Prophylaxis: On IV heparin, home Eliquis on hold for now pending MRI results and ortho consult recommendations/input. Code Status: FULL CODE PCP: KEVIN Lema Disposition: Admitted in Med/Surg Patient daughter requesting daily updates from providers --> Alyssa Montalvo, . * Called to update daughter however she did not answer, left VM for her to call back to provide her with updates regarding her mom's care. Patient seen in collaboration with Dr. Armenta. Please see addendum. I spent a total of 50 minutes coordinating, documenting, and providing care for this patient excluding time spent in the performance of separately billed services. This included personally reviewing all current laboratories and imaging studies, medical reconciliation, outpatient chart review and discussion with specialists. This chart was completed in part utilizing Speech Voice Recognition Software. Grammatical errors, random word insertions, pronoun errors, and incomplete sentences are an occasional consequence of this system due to software limitations, ambient noise, and hardware issues. Any formal questions or concerns about the content, text, or information contained within the body of this dictation should be directly addressed to the provider for clarification. Admission and Anticipated Discharge Date Admission Date: September 13, 2024 Supervising Physician Co-Signing Physician Notes I have seen and examined the patient at bedside. Discussed the case with the collaborating advanced practitioner. I agree with the documentation as above. I have reviewed and confirmed the patients medical history, the findings on physical examination, and the patients diagnosis and treatment plan with Fay Greenwood PA-C and agree with the information documented. Note has been edited as needed. Right lower extremity cellulitis Volume overload Suspected right first digit distal phalanx osteomyelitis Venous Doppler showed no signs of DVT Right lower extremity arterial Doppler in July within normal limits with no focal stenosis Blood cultures pending Continue cefepime, doxycycline Orthopedics consulted Pain control as needed Echo showed no signs of CHF Lasix as needed to help with volume Transition IV heparin to Eliquis as able if no plan for procedure Subjective Patient reports RLE redness and serous drainage from her RLE that has been ongoing since Tuesday. She also mentions that her RLE has been rather painful. Denies any recent fevers, body aches or chills. Mentions that she was recently on oral antibiotics without any significant improvement in the redness, drainage or pain. Review of Systems Review of Systems: At least ten systems reviewed and negative, except as noted in the subjective section. Physical Exam Physical Exam: General: WD/WN, vitals as above, NAD, laying down in bed, very pleasant, conversing appropriately. A+Ox3, euthymic affect. HEENT: Normocephalic, atraumatic. PERRL, conjunctivae normal, anicteric sclerae. External ear and nose normal, oropharynx normal. Respiratory: Normal respiratory effort, lungs clear to auscultation, no wheeze, rales, rhonchi. No accessory muscle use. Cardiovascular: Regular rate, rhythm, no murmur, normal peripheral pulses, significant 2-3+ BLE edema/swelling. Vessels: No JVD. Abdomen/GI: Normal bowel sounds, soft, nontender, no hepatosplenomegaly. Extremities/Musculoskeletal: No cyanosis or clubbing, notable erythema of the RLE and R lateral ankle ulceration. Neurologic: EOMI, no focal deficits, CN's II-XI not formally tested but appear grossly intact bilaterally. Skin: No rashes, normal color, warm/dry. Also with some mild LLE erythema. Venous stasis changes of BLE noted. Results & Data Results & Data Vital Signs (Past 12 Hours) Vital Signs Temp Pulse Pulse Resp BP BP Pulse Ox 09/14/24 07:57 36.8 C 87 16 132/77 96 09/13/24 23:38 36.6 C 73 18 129/79 97 09/13/24 22:00 90 18 137/85 95 09/13/24 21:00 83 18 148/75 H 95 09/13/24 20:30 77 18 155/97 H 96 O2 Del Method 09/14/24 07:57 Room Air 09/13/24 23:38 Room Air 09/13/24 22:00 Room Air 09/13/24 21:00 Room Air 09/13/24 20:30 Room Air Laboratory Results Short CBC 09/13/24 09/14/24 Range/Units 17:30 05:22 WBC 8.53 5.28 (4.8-10.8) K/ul Hgb 10.1 L 9.1 L (12.0-16.0) g/dl Hct 31.5 L 27.1 L (37.0-47.0) % Plt Count 283 266 (130-400) K/uL BMP 09/13/24 09/14/24 17:30 05:22 Sodium 137 137 Potassium 5.1 4.3 Chloride 103 106 Carbon Dioxide 28 26 BUN 31 H 28 H Creatinine 0.94 0.88 Glucose 127 H 83 Calcium 8.8 8.3 L Cardiac Enzymes 09/13/24 Range/Units 17:30 Total Creatine Kinase 58 (26-192) U/L Liver Function 09/13/24 Range/Units 17:30 Total Bilirubin 0.3 (0.2-1.0) mg/dl AST 26 (13-39) U/L ALT 18 (7-52) U/L Alkaline Phosphatase 54 (34-104) U/L Albumin 3.5 (3.4-5.0) gm/dl Urine 09/13/24 Range/Units 20:10 Urine Color Yellow Urine Appearance Turbid A (Clear) Urine pH 5.5 (4.5-7.5) Ur Specific [place] 1.027 (1.000-1.030) Urine Protein Negative (Negative) Urine Glucose (UA) Negative (Negative)
[2024-09-14] MEDS: METOPROLOL SUCC 25MG EXT REL TAB PO SCH (08:31)
[2024-09-14] MEDS: PANTOprazole 40 MG TAB PO SCH (08:31)
[2024-09-14] MEDS: DOXYCYCLINE HYCLATE 100 MG CAP PO SCH (08:31)
[2024-09-14] MEDS: ATORVASTATIN 40 MG TAB PO SCH (08:32)
[2024-09-14] MEDS: MULTIVITAMIN TAB PO SCH (08:32)
[2024-09-14] MEDS: DULoxetine HCL 30 MG CAP PO SCH (08:32)
[2024-09-14] MEDS: predniSONE 10 MG TABLET PO SCH (08:32)
[2024-09-14] MEDS: ESCITALOPRAM OXALATE 20 MG TAB PO SCH (08:32)
[2024-09-14] MEDS: OXYBUTYNIN CHLORIDE XL 5 MG TABCR PO SCH (08:32)
--- OUTSIDE RECORDS SUMMARY | 2024-09-14 12:19 | External Medical Summary | Summary of Care ---
Author Name Unknown Organization [facility] Address [address] [place] [address] Phone [phone] Care Team Providers Care Superintendent Transportation Name Role Phone Simi Hernandez Primary Care Provider Reason for Referral * Evaluate & Treat - Unlimited Visits (Within 30 days (routine)) - Authorized Specialty Diagnoses / Procedures Referred By Kenya soliz Referred To Contact Wound Care Diagnoses Cellulitis of right lower extremity Chronic osteomyelitis of fibula (HCC) Simi Hernandez CRNP [address] [place] [address] Referral ID Status Reason Start Date Expiration Date Visits Requested Visits Authorized [id number] Authorized Specialty Services Required [phone] Question Answer Referral Priority Within 30 days (routine) Where should this appointment be scheduled? [facility] Where is the wound? Below the knee Comments Assess for: Present over 30 days Reason for Visit * Reason Comments Acute Since EMG last week, right lower leg is red and seeping. Encounter Details Date Type Department Care Team (Latest Contact Info) Description 09/11/2024 9:00 AM EDT Office Visit Family [facility] [address] [place] [address] Simi Hernandez CRNP [address] [place] [address] Cellulitis of right lower extremity*; Chronic wound; Chronic osteomyelitis of fibula (HCC); Stasis dermatitis of both legs; Polyneuropathy Allergies No known active allergiesdocumented as of this encounter (statuses as of 09/13/2024) Medications Medication Sig Dispensed Refills Start Date End Date Status VITAMIN D 1000 UNITS PO CAPSIndications:Ost eoporosis One capsule daily 30 Cap 5 3 Active Aubagio 14 MG Oral Tablet Take 1 Tablet by mouth in the morning. Takes at night. Active Melatonin 3 MG Oral Tablet Disintegrating Take 3 mg by mouth every night at bedtime. 30 Tablet 2 Active Multivitamin Adult Oral Tablet Take by mouth 1 Tablet daily . 30 Tablet 2 Active Aspirin EC 81 MG Oral Tablet Delayed Release Take 1 Tablet by mouth in the morning. 3 Active Azelaic Acid 15 % External Gel (Finacea)Indication s:Rosacea Apply to face twice daily as needed 50 g 1 3 Active LUCITA Knee Brace Medium Please eval and fit for bilateral knee brace as recommended by physical therapy. 2 Each O 3 Active Eliquis 5 MG Oral Tablet Take 1 tablet by mouth twice daily 60 Tablet 5 4 Active Omeprazole 40 MG Oral Capsule Delayed Release (PriLOSEC) Take 1 capsule by mouth in the morning 30 Capsule 5 4 Active Magnesium Oxide 400 240 MG Oral Packet (Magnesium Oxide) Take 400 mg by mouth in the morning and 400 mg before bedtime. 180 Each 3 4 Active Transdermal Pain Base External Cream Apply to feet daily as needed. 500 g 2 4 Active Metoprolol Succinate ER 25 MG Oral Tablet Extended Release 24 Hour (toPROL XL) Take 1 Tablet by mouth in the morning and 1 Tablet before bedtime. 60 Tablet 11 4 Active Losartan Potassium 25 MG Oral Tablet (Cozaar) Take 1 Tablet by mouth in the morning. 4 Active predniSONE 10 MG Oral Tablet (Deltasone)Indicati ons:Multiple sclerosis (HCC) Take 1 tablet by mouth once daily 90 Tablet 1 4 Active Atorvastatin Calcium 40 MG Oral Tablet (Lipitor) Take 1 Tablet by mouth in the morning. 90 Tablet 3 4 Active oxyBUTYnin Chloride ER 15 MG Oral Tablet Extended Release 24 Hour (Ditropan XL)Indications:Neur ogenic bladder TAKE 1 TABLET BY MOUTH IN THE MORNING 90 Tablet 4 Active DULoxetine HCl 30 MG Oral Capsule Delayed Release Particles (Cymbalta) Take 1 Capsule by mouth in the morning. Do not cut, crush or chew. 30 Capsule 5 4 Active tiZANidine HCl 4 MG Oral Tablet (Zanaflex) Take 1 Tablet by mouth every 6 hours as needed for Muscle spasms. 360 Tablet 4 Active Doxycycline Hyclate 50 MG Oral Capsule (Vibramycin)Indicat ions:Rosacea TAKE 1 CAPSULE BY MOUTH EVERY OTHER DAY 45 Capsule 4 Active Sulfamethoxazole-Tr imethoprim 800-160 MG Oral Tablet (Bactrim DS) Take 1 Tablet by mouth in the morning and 1 Tablet before bedtime. Do all this for 10 days. Until gone.. 20 Tablet 4 09/21/20 24 Active Penicillin V Potassium 500 MG Oral Tablet (Veetids) Take 1 Tablet by mouth in the morning and 1 Tablet at noon and 1 Tablet in the evening and 1 Tablet before bedtime. 4 09/11/20 Discontinued Cephalexin 500 MG Oral Capsule (Keflex) Take 1 Capsule by mouth in the morning and 1 Capsule at noon and 1 Capsule in the evening and 1 Capsule before bedtime. 09/11/20 Discontinued Doxycycline Monohydrate 100 MG Oral Tablet Take 1 Tablet by mouth in the morning and 1 Tablet before bedtime. 09/11/20 Discontinued documented as of this encounter (statuses as of 09/13/2024) Active Problems Problem Noted Date Diagnosed Date Cellulitis of right lower extremity 09/11/2024 Polyneuropathy 09/11/2024 Chronic wound 09/11/2024 Ischemic optic neuropathy of both eyes Wound of left leg 06/21/2024 Moderate episode of recurrent major depressive d isorder 05/15/2024 Pressure injury of sacral region, stage 1 2023 Prepatellar bursitis due to group B Streptococcu s, left 04/26/2024 Nonrheumatic aortic valve stenosis 03/23/2024 Chronic ulcer of right foot 03/12/2024 Chronic deep vein thrombosis (DVT) of left peron eal vein 03/12/2024 Chronic osteomyelitis of fibula 03/12/2024 Dysuria [...] 05/07/2020 Gastroesophageal reflux disease with esophagitis 05/05/2020 H/O: upper GI bleed 05/05/2020 Hx [...] as of this encounter (statuses as of 09/13/2024) Resolved Problems Problem Noted Date Diagnosed Date [...] contraction) 10/22/2020 05/12/2022 Iron deficiency anemia 08/13/202012/28 Depression with anxiety 05/05/202006/30 Sacroiliitis 12/19/2018 08/13/2019 Chronic ulcer of left [...] as of this encounter (statuses as of 09/13/2024) Immunizations Name Administration Dates Next Due COVID-19 mRNA, LNP-s, No Pre serve, 2-Dose Series (Genomera) 04/18/2022,11/12/2021,01/28/2021,01/14 PPD 06/05/2018 Pneumococcal Conjugate Vacc, 13 Valent (Prevnar) 07/30/2020 Pneumococcal Polysaccharide PPV23 (Pneumovax) 07/05/2011 Seasonal Influenza Vac., MDV , IM, 0.5 mL (Fluzone) 08/29/2014,08/22/2013,10/16/2012,08/11,10/20/2010,09/05/2009,10/03/2008 Seasonal Influenza Virus Vac cine, Unspecified Formulation 10/02/2021,09/18/2020,10/22/2019,12/07,11/04/2017,11/10/2016,09/12/2015 ,08/29/2014,08/22/2013,10/16/2012,07/29,10/20/2010,09/05/2009, 8 Seasonal Influenza, PF, 6 M & above, IM , (FluLaval or Fluzone) 09/18/2020,12/07/2018,11/04/2017 Seasonal Influenza, Quadriva lent Hd (Fluzone Hd) 10/13/2023,10/15/2022,10/02/2021 Seasonal Influenza, Quadriva lent, No Preserve, IM 11/10/2016,09/12/2015 Seasonal Influenza, Trivalen t, Adjuvanted, 65+ YRS, PF, (Fluad) 10/22/2019 TDAP, Age 7 and older, IM (Adacel) 04/30/2009 documented as of this encounter Social [...] Date Recorded PHQ Adult Total Score 0 08/30/2024 Hunger Vital Sign Answer Date Recorded Within the past 12 months, y ou worried that your food would run out before you got the money to buy more. Never true 08/30/20 24 Within the past 12 months, t he food you bought just didn't last and you didn't have money to get more. Never true 08/30/2024 Childcare Answer Date Recorded Do you feel overwhelmed with taking care of a child, family member or friend? No 08/30/2024 Does your family need help f inding childcare? (Household - for ages 0-17 years) Not on file 08/30/2024 Clothing Answer Date Recorded Have you been unable to get clothing when it was really needed? No 08/30/2024 Is your family able to get c lothes or diapers when needed? (Household - for ages 0-17 years) Not on file 08/30/2024 Personal Safety Answer Date Recorded Do you feel unsafe or have concerns for your saf ety? No 08/30/2024 Do you have concerns for you r family's safety? (Household - for ages 0-17 years) Not on file 08/30/2024 Utilities Answer Date Recorded Do you have trouble paying y our heating, water, or electric bill? No 08/30/2024 Is your family able to pay t he heat, water, or electric bill? (Household - for ages 0-17 years) Not on file 08/30/2024 Does your family have access to good internet? (Household - for ages 0-17 years) Not on file 08/30/2024 Employment Status Answer Date Recorded Are you unemployed or without regular income? No 08/30/2024 Does the household have a re gular source of income? (Household - for ages 0-17 years) Not on file 08/30/2024 Social Connections Answer Date Recorded How often do you feel lonely or isolated from th ose around you? Rarely 08/30/2024 Financial Resource Strain Answer Date R ecorded Do you have any trouble payi ng for your medications, or do you think you might in the future? No 08/30/2024 Does your family have troubl e paying for medicine? (Household - for ages 0-17 years) Not on file 08/30/2024 Transportation Needs Answer Date Record ed READ ONLY Do you have troubl e getting a ride to medical visits or work? Never True 08/30/2024 Does your family have a hard time getting a ride to doctors visits? (Household - for ages 0-17 years) Not on file 08/30/2024 Has lack of transportation k ept you from medical appointments, meetings, work, or from getting things needed for daily living? Check all that apply. No 08/30/2024 Do you (or your family) have trouble finding or paying for a ride (transportation)? (Household - for ages 0-17 years) Not on file 08/30/2024 Housing Stability Answer Date Recorded Do you currently live in a s helter or have no steady place to sleep at night? No 08/30/2024 READ ONLY Do you think you a re at risk of becoming homeless? No 08/30/2024 Does your family worry about paying for your home or becoming homeless? (Household - for ages 0-17 years) Not on file 1 Are you homeless or worried that you might be in the future? No 08/30/2024 Are you (or your family) hugo eless or worried that you might be in the future? (Household - for ages 0-17 years) Not on file Food Insecurity Answer Date Recorded Do you need food for this week? No 08/30/2024 Are you able to get enough f ood for your family? (Household - for ages 0-17 years) Not on file 08/30/2024 Does your family need food t his week? (Household - for ages 0-17 years) Not on file 08/30/2024 Do you always have enough fo od for your family? (Household - for ages 0-17 years) Not on file 08/30/2024 Sex and Gender Information Value Date Recorded Sex Assigned at Female 02/07/2020 1:52 PM EDT Gender Identity Female 02/07/2020 1:52 PM EDT Sexual Orientation Straight 02/07/2020 1: 52 PM EDT Job Start Date Occupation Industry Not on file Not on file Not on file documented as of this encounter Last Filed Vital Signs Vital Sign Reading Time Taken Comments Blood Pressure 110/70 09/11/2024 9:06 AM EDT Pulse 60 09/11/2024 9:06 AM EDT Temperature - - Respiratory Rate - - Oxygen Saturation - - Inhaled Oxygen Concentration - - Weight - - Height - - Body Mass Index - - documented in this encounter Progress Notes * Simi Hernandez CRNP - 09/11/2024 9:08 AM EDT Images from the original note were not included. Acute CC: Chief Complaint Patient presents with Acute Since EMG last week, right lower leg is red and seeping. History of Present Illness: Kandy Shelby is a 73 year old female presenting today with complaints of right lower leg oozing and redness. It is painful. This started after EMG last week. No needles were used during EMG. EMG was on and redness started on Tuesday. There is moderate pain Denies fever, sometimes chills. Temp today 96.4 Tympanic. Oozing clear liquid. Social History Socioeconomic History Marital status: Spouse name: Not on file Number of children: 3 Years of education: Not on file Highest education level: Not on file Occupational History Not on file Tobacco Use Smoking status: Former Current packs/day: 0.00 Average packs/day: 1 pack/day for 6.0 years (6.0 ttl pk-yrs) Types: Cigarettes Start date: 07/05/1974 Quit date: 07/05/1980 Years since quittin.2 Smokeless tobacco: Never Tobacco comments: quit about about 1979 Vaping Use Vaping status: Never Used Substance and Sexual Activity Alcohol use: Not [...] Social Determinants of Health Financial Resource Strain: Low Risk (08/30/2024) Financial Resource Strain Do you have any trouble paying for your medications, or do you think you might in the future? (Adult - for ages 18 years and over): No Does your family have trouble paying for medicine? (Household - for ages 0-17 years): Not on file Food Insecurity: No Food Insecurity (08/30/2024) Food Insecurity Do you need food for this week? (Adult - for ages 18 years and over): No Are you able to get enough food for your family? (Household - for ages 0-17 years): Not on file Does your family need food this week? (Household - for ages 0-17 years): Not on file Do you always have enough food for your family? (Household - for ages 0-17 years): Not on file Transportation Needs: No Transportation Needs (08/30/2024) Transportation Needs Do you have trouble getting a ride to medical visits or work? (Adult - for ages 18 years and over):Never True Does your family have a hard time getting a ride to doctors visits? (Household - for ages 0-17 years): Not on file Has lack of transportation kept you from medical appointments, meetings, work, or from getting things needed for daily living? Check all that apply. (Adult - for ages 18 years and over): No Do you (or your family) have trouble finding or paying for a ride (transportation)? (Household - for ages 0-17 years): Not on file Social Connections: Socially Integrated (08/30/2024) Social Connections How often do you feel lonely or isolated from those around you? (Adult - for ages 18 years and over): Rarely Housing Stability: Low Risk (08/30/2024) Housing Stability Do you currently live in a senior care or have no steady place to sleep at night? (Adult - for ages 18 years and over): No Do you think you are at risk of becoming homeless? (Adult - for ages 18 years and over): No Does your family worry about paying for your home or becoming homeless? (Household - for ages 0-17 years): Not on file Are you homeless or worried that you might be in the future? (Adult - for ages 18 years and over): No Are you (or your family) homeless or worried that you might be in the future? (Household - for ages0-17 years): Not on file PMH: Past Medical History: [...] performed by Andrea Stanford MD at [facility] BONE DEBRIDEMENT, FIRST 20 CM2 Right 05/12/2023 R lateral ankle osteomyelitis-Andrea Velasco DPRadha CARDIAC CATH-CARDIOLOGY ONLY 07/06/2021 [facility] COLONOSCOPY, DIAGNOSTIC (RECTUM) polyp removed not retrieved / INPT [facility] COLONOSCOPY, DIAGNOSTIC (RECTUM) 01/26/2018 poor prep, repeat / INPT [facility] COLONOSCOPY, DIAGNOSTIC (RECTUM) N/A 11/04/2022 poor prep/non-bleeding internal hemorrhoids/recall 3 months/Colonoscopy/[place] COLONOSCOPY, DIAGNOSTIC (RECTUM) 05/05/2023 normal, repeat 5 yrs / COLONOSCOPY FLEXIBLE PROXIMAL DIAGNOSTIC performed by Blanche Chi DO at ENDOSCOPY [facility] CYSTOURETHROSCOPY, INJ FOR CHEMODENERVATION 03/29/2014 CYSTOURETHROSCOPY, INJ FOR CHEMODENERVATION performed by Hannah Milner MD at OR [facility] CYSTOURETHROSCOPY, INJ FOR CHEMODENERVATION 05/22/2015 EGD, FLEXIBLE, DIAGNOSTIC 01/25/2018 normal bx/[facility] EGD, FLEXIBLE, DIAGNOSTIC 04/30/2020 reflux esophagitis, gastric ulcer, repeat 2 mo / [facility] EGD, FLEXIBLE, DIAGNOSTIC 06/18/2020 gastric diverticulum, gastric irritation & ulceration, repeat 3-6 mo / [facility] EGD, FLEXIBLE, DIAGNOSTIC 03/19/2021 erosive gastritis, hiatal hernia / [facility] EGD, FLEXIBLE, DIAGNOSTIC 02/19/2022 erosive gastritis, hiatal hernia / [facility] EGD, FLEXIBLE, DIAGNOSTIC N/A 11/04/2022 large hiatal hernia/gastric diverticulum/EGD/[facility] TOOTH REMOV PART BONY (2) upper wisdom teeth removed IMPLANT/REPLACE SPINE INFUSION PUMP 07/2022 [facility] MASTECTOMY, MODIFIED RADICAL 09/2001 left breast- Dr. Ibrahim PAIN MANAGEMENT CATH 03/13/2009 Medtronic Baclofen pump- Dr. Shabazz- [facility] PARTIAL HIP REPLACEMENT & PROSTH left PARTIAL HYSTERECTOMY approx 1991 Ovaries remain in RECONSTRUCT/REPLACE SHOULDER JOINT Right 05/25/2022 Reverse total shoulder--Thad REMOVAL OF APPENDIX 06/25/[address] Johnson [facility] 06/25/2009 REPAIR THIGH FRACTURE, W/IMPLANT 10/2006 Hip ORIF- left hip Dr. Morales REVERSE TOTAL SHOULDER ARTHROPLASTY Right 05/25/2022 Dr. Oneil [facility] SACROILIAC JOINT INJECT W/GUIDANCE 08/17/2018 INJECTION SACROILIAC JOINT performed by Ulises Tran, DO at OR [facility] SACROILIAC JOINT INJECT W/GUIDANCE 10/09/2018 INJECTION SACROILIAC JOINT performed by Ulises Tran, DO at OR [facility] SACROILIAC JOINT INJECT W/GUIDANCE 02/01/2019 INJECTION SACROILIAC JOINT performed by Ulises Tran, DO at OR [facility] Current Outpatient Medications Medication Sig Dispense Refill Cephalexin 500 MG Oral Capsule (Keflex) Take 1 Capsule by mouth in the morning and 1 Capsule at noon and 1 Capsule in the evening and 1 Capsule before bedtime. Doxycycline Monohydrate 100 MG Oral Tablet Take 1 Tablet by mouth in the morning and 1 Tablet before bedtime. Doxycycline Hyclate 50 MG Oral Capsule (Vibramycin) TAKE 1 CAPSULE BY MOUTH EVERY OTHER DAY 45 Capsule 0 tiZANidine HCl 4 MG Oral Tablet (Zanaflex) Take 1 Tablet by mouth every 6 hours as needed for Muscle spasms. 360 Tablet 0 DULoxetine HCl 30 MG Oral Capsule Delayed Release Particles (Cymbalta) Take 1 Capsule by mouth in the morning. Do not cut, crush or chew. 30 Capsule 5 oxyBUTYnin Chloride ER 15 MG Oral Tablet Extended Release 24 Hour (Ditropan XL) TAKE 1 TABLET BY MOUTH IN THE MORNING 90 Tablet 0 Atorvastatin Calcium 40 MG Oral Tablet (Lipitor) Take 1 Tablet by mouth in the morning. 90 Tablet 3 Penicillin V Potassium 500 MG Oral Tablet (Veetids) Take 1 Tablet by mouth in the morning and 1 Tablet at noon and 1 Tablet in the evening and 1 Tablet before bedtime. predniSONE 10 MG Oral Tablet (Deltasone) Take 1 tablet by mouth once daily 90 Tablet 1 Losartan Potassium 25 MG Oral Tablet (Cozaar) Take 1 Tablet by mouth in the morning. Metoprolol Succinate ER 25 MG Oral Tablet Extended Release 24 Hour (toPROL XL) Take 1 Tablet by mouth in the morning and 1 Tablet before bedtime. 60 Tablet 11 Magnesium Oxide 400 240 MG Oral Packet (Magnesium Oxide) Take 400 mg by mouth in the morning and 400 mg before bedtime. 180 Each 3 Transdermal Pain Base External Cream Apply to feet daily as needed. 500 g 2 Eliquis 5 MG Oral Tablet Take 1 tablet by mouth twice daily 60 Tablet 5 Omeprazole 40 MG Oral Capsule Delayed Release (PriLOSEC) Take 1 capsule by mouth in the morning 30 Capsule 5 LUCITA Knee Brace Medium Please eval and fit for bilateral knee brace as recommended by physical therapy. 2 Each O Azelaic Acid 15 % External Gel (Finacea) Apply to face twice daily as needed 50 g 1 Aspirin EC 81 MG Oral Tablet Delayed Release Take 1 Tablet by mouth in the morning. Melatonin 3 MG Oral Tablet Disintegrating Take 3 mg by mouth every night at bedtime. 30 Tablet 0 Multivitamin Adult Oral Tablet Take by mouth 1 Tablet daily . 30 Tablet 0 Aubagio 14 MG Oral Tablet Take 1 Tablet by mouth in the morning. Takes at night. VITAMIN D 1000 UNITS PO CAPS One capsule daily 30 Cap 5 No current facility-administered medications for this visit. Review of patient's allergies indicates: No Known Allergies Most Recent Immunizations Administered Date(s) Administered COVID-19 mRNA, LNP-s, No Preserve, 2-Dose Series (Genomera) 04/18/2022 Denosumab 01/03/2019 PPD 06/05/2018 Pneumococcal Conjugate Vacc, 13 Valent (Prevnar) 07/30/2020 Pneumococcal Polysaccharide PPV23 (Pneumovax) 07/05/2011 Seasonal Influenza Vac., MDV, IM, 0.5 mL (Fluzone) 08/29/2014 Seasonal Influenza Virus Vaccine, Unspecified Formulation 10/02/2021 Seasonal Influenza, PF, 6 M & above, IM , (FluLaval or Fluzone) 09/18/2020 Seasonal Influenza, Quadrivalent Hd (Fluzone Hd) 10/13/2023 Seasonal Influenza, Quadrivalent, No Preserve, IM 11/10/2016 Seasonal Influenza, Trivalent, Adjuvanted, 65+ YRS, PF, (Fluad) 10/22/2019 TDAP, Age 7 and older, IM (Adacel) 04/30/2009 Review of Systems: Review of Systems Constitutional: Positive for chills and fatigue. Negative for diaphoresis and fever. Respiratory: Negative for shortness of breath. Cardiovascular: Positive for leg swelling. Negative for chest pain and palpitations. Musculoskeletal: Positive for myalgias. Physical Exam: Filed Vitals: 09/11/24 0906 BP: 110/70 Pulse: 60 Physical Exam HENT: Head: Normocephalic. Cardiovascular: Rate and Rhythm: Normal rate and regular rhythm. Pulmonary: Effort: Pulmonary effort is normal. Breath sounds: Normal breath sounds. Musculoskeletal: Feet: Feet: Comments: Chronic scaling and callus of right ankle. Right mid calf down with erythema and tender Neurological: General: No focal deficit present. Mental Status: She is alert and oriented to person, place, and time. Psychiatric: Mood and Affect: Mood normal. Behavior: Behavior normal. Thought Content: Thought content normal. Judgment: Judgment normal. Assessment and Plan: 1. Cellulitis of right lower extremity S/P emg last week with no use of needles. This is here leg with previous osteomyelitis ? Recurrence. Increased symptoms were 2 days after Add bactrim bid x 10 days Stop keflex - WOUND CARE REFERRAL OP - CBC WITH WBC DIFFERENTIAL AND ANEMIA REFLEX WORKUP; Future - CBC WITH WBC DIFFERENTIAL AND ANEMIA REFLEX WORKUP Stat CBC today 2. Chronic wound RIGHT LATERAL ANKLE Previously managed but scaling continues with recurrent cellulitis. Patient will see Dr. Velasco today MRI RIGHT ankle pending 3. Chronic osteomyelitis of fibula (HCC) History of MRI pending of ankle - WOUND CARE REFERRAL OP 4. Stasis dermatitis of both legs 5. Polyneuropathy Noted on emg I have advised the patient to call our office incase of any worsening or new symptoms. I spent a total of 40-54 minutes (exact time 40 mins) on the date of service in preparation, delivery, and documentation of the care provided to Kandy Shelby excluding any time spent in the performance of separately billed services. Kirstin, MSN, [facility] documented in this encounter Miscellaneous Notes * Addendum Note - Edna Garcia TECH - 09/13/2024 5:44 AM EDTAddended by: EDNA GARCIA on: 09/13/2024 05:44 AM Modules accepted: Orders * Addendum Note - Edna Garcia TECH - 09/13/2024 5:41 AM EDTAddended by: EDNA AGRCIA on: 09/13/2024 05:41 AM Modules accepted: Orders * Addendum Note - Edna Garcia TECH - 09/13/2024 5:39 AM EDTAddended by: EDNA GARCIA on: 09/13/2024 05:39 AM Modules accepted: Orders documented in this encounter Plan of Treatment Upcoming Encounters Date Type Department Care Team (Late st Contact Info) Description 09/26/2024 3:00 PM EDT Office Visit Family Practice [facility] [address] [facility] [place] [address] Simi Hernandez CRNP [address] [facility] [place] [address] 10/09/2024 10:00 AM EST Office Visit [facility] [address] [facility] [address] Hannah Nicolas MD [address] [facility], [place] [address] 10/11/2024 2:05 PM EST NeuroDiagnostic Study Neurophysiology [facility] [address] [facility] [place] [address] Silver Mcduffie, DO [address] [facility] [place] [address] 10/23/2024 3:00 PM EST Office Visit [facility] [address] [facility] [place] [address] Simi Hernandez CRNP [address] [place] [address] 10/24/2024 2:00 PM EST Cardiac Studies Cardiac Studies, [facility] [address] [place] [address] 10/24/2024 3:00 PM EST Office Visit Cardiology, [facility] [address] [facility] [place] [address] Camille Cuevas PA-C [address] [facility] [place] [address] 10/26/2024 11:00 AM EST Office Visit Dermatology, Kirstie Avina [address] [place] [address] Kymberly Duque PAJoaquinaC [address] [place] [address] 11/23/2024 3:00 PM EST Office Visit [facility] [address] [place] [address] Simi Hernandez CRNP [address] [place] [address] 02/04/2025 11:20 AM EDT Office Visit Neurology [facility] [place] [address] [place] [address] [address] Andrea Walker MD [address] [place] [address] 02/13/2025 1:30 PM EDT Office Visit Urology Diana ColeKirstie [address] [place] [address] Elba Morales PA-C [address] [place] [address] 05/16/2025 8:00 AM EDT Office Visit [facility] [address] [place] [address] Edu Chaudhary, DO [address] [facility] [place] [address] Pending Results Name Type Priority Associated Diagnoses Date /Time CBC WITH WBC DIFFERENTIAL AND ANEMIA REFLEX WORKUP Lab Routine Cellulitis of right lower extremity 09/11/2024 8:58 AM EDT ANEMIA REFLEX CHEMISTRY HOLD Lab Routine Cellulitis of right lower extremity 09/11/2024 9:48 AM EDT IRON SCREEN, INCLUDING TIBC Lab Routine Cellulitis of right lower extremity 09/11/2024 9:48 AM EDT FERRITIN Lab Routine Cellulitis of right lower extremity 09/11/2024 9:48 AM EDT VITAMIN B12 Lab Routine Cellulitis of right lower extremity 09/11/2024 9:48 AM EDT TSH Lab Routine Cellulitis of right lower extremity 09/11/2024 9:48 AM EDT FOLIC ACID Lab Routine Cellulitis of right lower extremity 09/11/2024 9:48 AM EDT Scheduled Orders Name Type Priority Associated Diagnoses Orde r Schedule CBC WITH WBC DIFFERENTIAL AND ANEMIA REFLEX WORKUP Lab Routine Cellulitis of right lower extremity Expected: 09/11/2024 (Approximate), Expires: 09/11/2025 IRON SCREEN, INCLUDING TIBC Lab Routine Cellulitis of right lower extremity Expected: 09/13/2024, Expires: 09/13/2025 FERRITIN Lab Routine Cellulitis of right lower extremity Expected: 09/13/2024, Expires: 09/13/2025 VITAMIN B12 Lab Routine Cellulitis of right lower extremity Expected: 09/13/2024, Expires: 09/13/2025 TSH Lab Routine Cellulitis of right lower extremity Expected: 09/13/2024, Expires: 09/13/2025 FOLIC ACID Lab Routine Cellulitis of right lower extremity Expected: 09/13/2024, Expires: 09/13/2025 Scheduled Procedures Name Priority Associated Diagnoses Date/Ti me COLONOSCOPY FLEXIBLE PROXIMAL DIAGNOSTIC Recall Screen for colon cancer Scheduled Referrals Name Type Priority Associated Diagnoses Orde r Schedule WOUND CARE REFERRAL OP Referral Within 30 days (routine) Cellulitis of right lower extremity Chronic osteomyelitis of fibula (HCC) Ordered: 09/11/2024 Health Maintenance Due Date Last Done Comments Albumin/Creatinine Ratio 1970 Cologuard 1997 Sigmoidoscopy 1997 DTap/Tdap Vaccines (2 - Td or Tdap) 04/30/2019 04/30/2009 Fecal Occult Blood Test 11/24/2019 11/24/2018 DXA Scan 05/15/2020 05/15/2018, 04/29, 05/06/2014, Additional history exists *BISPHONATE OR OTHER ACCEPTABLE MEDICATION NEEDED FOR OSTEOPOROSIS (REFER TO SMARTSET #1146) 05/24/2020 Pneumococcal Vaccine: 65+ Years (3 of 3 - PPSV23 or PCV20) 09/24/2020 07/30/2020, 07/05/2011 Adult Wellness Visit 02/06/2021 02/07/2020 Mammogram 04/15/2024 04/15/2023, 03/28, 12/17/2019, Additional history exists Influenza Vaccine (FLU shot) (#1) 2024 10/13/2023, 10/15/2022, 10/02/2021, Additional history exists GFR 08/22/2025 08/22/2024, 06/29, 06/26/2024, Additional history exists Depression Monitoring 08/30/2025 08/30/2024 Colonoscopy 05/05/2028 05/05/2023, 06/0 06/2023, 11/04/2022, Additional history exists Colorectal Cancer Screening 05/05/2028 COVID-19 Vaccine Discontinued 06/04/2022, 06/2022, 04/18/2022, Additional history exists VITAMIN D LEVEL ONCE IN A LIFETIME-USE SMARTSET# 70420 Completed 01/17/2023, 04/05/2022, 04/28/2021, Additional history exists RETIRED - COLONOSCOPY-EVERY 5 YRS AGES 18-100 Discontinued 05/05/2023, 05/05/2023, 11/04/2022, Additional history exists HPV (Gardasil) Vaccine Aged Out No lo nger eligible based on patient's age to complete this topic Hepatitis B Vaccine Aged Out No longe r eligible based on patient's age to complete this topic MENINGOCOCCAL (MENACTRA/MENVEO) Aged Out No longer eligible based on patient's age to complete this topic Zoster Vaccines Discontinued documented as of this encounter Medical Devices Not on filedocumented as of this encounter Procedures Procedure Name Priority Date/Time Associated Diagnosis Comments ANEMIA CBC Routine 09/11/2024 8:58 AM EDT Cellulitis of right lower extremity DIFFERENTIAL, AUTOMATED Routine 09/11/2024 8:58 AM EDT Cellulitis of right lower extremity RETICULOCYTE PANEL Routine 09/11/2024 8: 58 AM EDT Cellulitis of right lower extremity documented in this encounter Results * RETICULOCYTE PANEL (09/11/2024 8:58 AM EDT) Reticulocyte Percent 1.52 0.80 - 1.90 % 09/11/2024 3:42 PM EDT [facility] Absolute Reticulocyte 58.4 31.3 - 100.1 K/uL 09/11/2024 3:42 PM EDT [facility] Immature Reticuloctye Fraction 17.7 2.5 - 20.6 % 09/11/2024 3:42 PM EDT [facility] Reticulocyte Hemoglobin 31.5 29.7 - 37.4 pg 09/11/2024 3:42 PM EDT [facility] Blood Venous blood specimen / Unknown Venipuncture / Unknown 09/11/2024 8:58 AM EDT 09/11/2024 9:49 AM EDT Simi BROWN LAB BLOOD ORDMarcie GLYNN [facility] [address] [place] [address] * (ABNORMAL) DIFFERENTIAL, AUTOMATED (09/11/2024 8:58 AM EDT) WBC 15.09(H) 4.00 - 10.80 K/uL 09/11/2024 2:58 PM EDT [facility] Neutrophils % 90.3(H) 40.0 - 75.0 % 09/11/2024 2:58 PM EDT [facility] Lymphocytes % 2.6(L) 18.0 - 42.0 % 09/11/2024 2:58 PM EDT [facility] Monocytes % 6.2 1.0 - 11.0 % 09/11/2024 2:58 PM EDT [facility] Eosinophils % 0.3 0.0 - 6.0 % 09/11/2024 2:58 PM EDT [facility] Basophils % 0.1 0.0 - 2.0 % 09/11/2024 2:58 PM EDT [facility] Immature Granulocytes % 0.5 0.0 - 2.0 % 09/11/2024 2:58 PM EDT [facility] Absolute Neutrophils 13.63(H) 1.80 - 7.70 K/uL 09/11/2024 2:58 PM EDT [facility] Absolute Lymphocytes 0.39(L) 1.00 - 4.80 K/ul 09/11/2024 2:58 PM EDT [facility] Absolute Monocytes 0.94 0.00 - 1.10 K/uL 09/11/2024 2:58 PM EDT [facility] Absolute Eosinophils 0.04 0.00 - 0.70 K/uL 09/11/2024 2:58 PM EDT [facility] Absolute Basophils 0.02 0.00 - 0.20 K/uL 09/11/2024 2:58 PM EDT [facility] Absolute Immature Granulocytes 0.07 0.00 - 0.20 K/uL 09/11/2024 2:58 PM EDT [facility] Blood Venous blood specimen / Unknown Venipuncture / Unknown 09/11/2024 8:58 AM EDT 09/11/2024 9:49 AM EDT Simi BROWN LAB BLOOD ORDMarcie GLYNN [facility] Organization Address City/State/ZIP Co de Phone Number [facility] [address] [place] [address] * (ABNORMAL) ANEMIA CBC (09/11/2024 8:58 AM EDT) WBC 15.09(H) 4.00 - 10.80 K/uL 09/11/2024 2:58 PM EDT [facility] RBC 3.79 3.85 - 5.15 M/uL 09/11/2024 2:58 PM EDT [facility] HGB 10.5(L) 12.0 - 15.3 g/dL 09/11/2024 2:58 PM EDT [facility] Comment:Anemia reflex testin g triggers on a HGB < 12.0 for Females and HGB < 13.0 for Males in accordance with the WHO Anemia Guidelines HCT 35.0(L) 36.0 - 45.2 % 09/11/2024 2:58 PM EDT [facility] MCV 92.3 81.5 - 97.5 fL 09/11/2024 2:58 PM EDT [facility] MCH 27.7 27.0 - 34.0 pg 09/11/2024 2:58 PM EDT [facility] MCHC 30.0 32.0 - 36.0 g/dL 09/11/2024 2:58 PM EDT [facility] RDW 21.4 11.5 - 15.5 % 09/11/2024 2:58 PM EDT [facility] PLT 236 140 - 400 K/uL 09/11/2024 2:58 PM EDT [facility] MPV 13.9 6.6 - 11.1 fL 09/11/2024 2:58 PM EDT [facility] nRBCs 0 <=0 /100 WBCs 09/11/2024 2:58 PM EDT [facility] Blood Venous blood specimen / Unknown Venipuncture / Unknown 09/11/2024 8:58 AM EDT 09/11/2024 9:49 AM EDT Simi BROWN LAB BLOOD CHRISTOPHE RENARD [facility] Organization Address City/State/ZIP Co de Phone Number [facility]ORY [facility] [address] [facility] [place] [address] documented in this encounter Visit Diagnoses Diagnosis Cellulitis of right lower extremity- Primary Cellulitis and abscess of leg, except foot Chronic wound Chronic osteomyelitis of fibula (HCC) Stasis dermatitis of both legs Varicose veins of lower extremities with inflammation Polyneuropathy Unspecified hereditary and idiopathic peripheral neuropathy documented in this encounter Advance Directives * Full Code (Latest Code Status on File) Date Activated Date Inactivated Comments 01/06/2018 7:45 AM 01/06/2018 2:47 PM This order ref lects the patients wishes and were consensually agreed upon. * Full Code Date Activated Date Inactivated Comments 10/08/2016 9:07 AM 10/08/2016 4:23 PM This order reflects the patients wishes and were consensually agreed upon. * Full Code Date Activated Date Inactivated Comments 01/20/2016 10:59 AM 01/20/2016 5:14 PM This order reflects the patients wishes and were consensually agreed upon. * Full Code Date Activated Date Inactivated Comments 05/23/2015 11:54 AM 05/23/2015 6:19 PM This order reflects the patients wishes and were consensually agreed upon. * Full Code Date Activated Date Inactivated Comments 03/29/2014 8:03 AM 03/29/2014 3:17 PM This order ref lects the patients wishes and were consensually agreed upon. Care Teams Superintendent Transportation Relationship Specialty Start Date End Date Simi Hernandez CRNP [address] [place] [address] [address] [address] PCP - General Nurse Practitioner 10/05/22 documented as of this encounter
--- OUTSIDE RECORDS SUMMARY | 2024-09-14 12:19 | External Medical Summary | Summary of Care ---
Author Name Unknown Organization [facility] Address [address] [place] [address] Phone [phone] Care Team Providers Care Bobbin Doffer Name Role Phone Simi Hernandez Primary Care Provider Reason for Referral * Evaluate & Treat - Unlimited Visits (Within 30 days (routine)) - Authorized Specialty Diagnoses / Procedures Referred By Kenya soliz Referred To Contact Wound Care Diagnoses Cellulitis of right lower extremity Chronic osteomyelitis of fibula (HCC) Simi Hernandez CRNP [address] [place] [address] Referral ID Status Reason Start Date Expiration Date Visits Requested Visits Authorized [id number] Authorized Specialty Services Required 4 [phone] [...] 09/11/2024 9:00 AM EDT Office Visit Family [facility] [address] [address] Simi Hernandez CRNP [address] [place] [address] Cellulitis of right lower extremity*; Chronic wound; [...] Debility 11/05/2022 Coronary artery 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 11/05/2022 Medical home [...] mRNA, LNP-s, No Pre serve, 2-Dose Series (FRESS) 04/18/2022,11/12/2021,01/28/2021,01/14 PPD 06/05/2018 Pneumococcal Conjugate Vacc, 13 [...] Stability Do you currently live in a usp or have no steady place to sleep [...] BONE performed by Andrea Stanford MD at [facility] BONE DEBRIDEMENT, FIRST 20 CM2 Right 05/12/2023 R lateral ankle osteomyelitis-Andrea Velasco DPRadha CARDIAC CATH-CARDIOLOGY ONLY 07/06/2021 [facility] COLONOSCOPY, DIAGNOSTIC (RECTUM) polyp removed not retrieved / INPT [facility] COLONOSCOPY, DIAGNOSTIC (RECTUM) 01/26/2018 poor prep, repeat / INPT [facility] COLONOSCOPY, DIAGNOSTIC (RECTUM) N/A 11/04/2022 poor prep/non-bleeding internal hemorrhoids/recall 3 months/Colonoscopy/OK COLONOSCOPY, DIAGNOSTIC (RECTUM) 05/05/2023 normal, repeat 5 yrs / COLONOSCOPY FLEXIBLE PROXIMAL DIAGNOSTIC performed by Blanche Chi DO at ENDOSCOPY [facility] CYSTOURETHROSCOPY, INJ FOR CHEMODENERVATION 03/29/2014 CYSTOURETHROSCOPY, INJ FOR CHEMODENERVATION performed by Hannah Milner MD at OR [facility] CYSTOURETHROSCOPY, INJ FOR CHEMODENERVATION 05/22/2015 EGD, FLEXIBLE, DIAGNOSTIC 01/25/2018 normal bx/[facility] EGD, FLEXIBLE, DIAGNOSTIC 04/30/2020 reflux esophagitis, gastric ulcer, repeat 2 mo / [facility] EGD, FLEXIBLE, DIAGNOSTIC 06/18/2020 gastric diverticulum, gastric irritation & ulceration, repeat 3-6 mo / [facility] EGD, FLEXIBLE, DIAGNOSTIC 03/19/2021 erosive gastritis, hiatal hernia / [facility] EGD, FLEXIBLE, DIAGNOSTIC 02/19/2022 erosive gastritis, hiatal hernia / [facility] EGD, FLEXIBLE, DIAGNOSTIC N/A 11/04/2022 large hiatal hernia/gastric diverticulum/EGD/[facility] TOOTH REMOV PART BONY (2) upper wisdom teeth removed IMPLANT/REPLACE SPINE INFUSION PUMP 07/2022 [facility] MASTECTOMY, MODIFIED RADICAL 09/2001 left breast- Dr. Ibrahim PAIN MANAGEMENT CATH 03/13/2009 Medtronic Baclofen pump- Dr. Shabazz- [facility] PARTIAL HIP REPLACEMENT & PROSTH left PARTIAL HYSTERECTOMY approx 1991 Ovaries remain in RECONSTRUCT/REPLACE SHOULDER JOINT Right 05/25/2022 Reverse total shoulder--Thad REMOVAL OF APPENDIX 06/25/[address] Johnson [facility] 06/25/2009 REPAIR THIGH FRACTURE, W/IMPLANT 10/2006 Hip ORIF- left hip Dr. Morales REVERSE TOTAL SHOULDER ARTHROPLASTY Right 05/25/2022 Dr. Oneil [facility] SACROILIAC JOINT INJECT W/GUIDANCE 08/17/2018 INJECTION SACROILIAC JOINT performed by Ulises Tran, DO at OR [facility] SACROILIAC JOINT INJECT W/GUIDANCE 10/09/2018 INJECTION SACROILIAC JOINT performed by Ulises Tran, DO at OR [facility] SACROILIAC JOINT INJECT W/GUIDANCE 02/01/2019 INJECTION SACROILIAC JOINT performed by Ulises Tran, DO at OR [facility] Current Outpatient Medications Medication Sig Dispense Refill [...] COVID-19 mRNA, LNP-s, No Preserve, 2-Dose Series (FRESS) 04/18/2022 Denosumab 01/03/2019 PPD 06/05/2018 Pneumococcal Conjugate [...] of separately billed services. Kirstin, MSN, KEVIN [facility] Medicine documented in this encounter Miscellaneous Notes * Addendum Note - Edna Garcia TECH - 09/13/2024 5:39 AM EDTAddended by: EDNA GARCIA on: 09/13/2024 05:39 AM Modules accepted: Orders documented in this encounter Plan of Treatment Upcoming Encounters Date Type Department Care Team (Late st Contact Info) Description 09/26/2024 3:00 PM EDT Office Visit [facility] [address] [facility] [place] [address] Simi Hernandez CRNP [address] [facility] [address] 10/09/2024 10:00 AM EST Office Visit [facility] Surgery [facility] [address] [place] [address] Hannah Nicolas MD [address] [place] [address] [place] [address] 10/11/2024 2:05 PM EST NeuroDiagnostic Study Neurophysiology [facility] [address] [facility] [place] [address] Silver Mcduffie DO [address] [facility] [place] [address] 10/23/2024 3:00 PM EST Office Visit [facility] [address] [facility] [address] [place] [address] Simi Hernandez CRNP [address] [facility] [place] [address] 10/24/2024 2:00 PM EST Cardiac Studies Cardiac Studies, [facility] [address] [facility] [place] [address] 10/24/2024 3:00 PM EST Office Visit Cardiology, [facility] [address] [facility] [place] [address] Camille Cuevas PA-C [address] [facility] [place] [address] 10/26/2024 11:00 AM EST Office Visit Dermatology, Kirstie Avina [address] [address] Kymberly Duque PA-C [address] [address] 11/23/2024 3:00 PM EST Office Visit Family Practice [facility] [address] [facility] [place] [address] Simi Hernandez CRNP [address] [facility] [place] [address] 02/04/2025 11:20 AM EDT Office Visit Neurology [facility] [address] [facility] [place] [address] Andrea Walker MD [address] [facility] [place] [address] 02/13/2025 1:30 PM EDT Office Visit Urology Kirstie Avina [address] [address] Elba Morales PA-C [address] [address] 05/16/2025 8:00 AM EDT Office Visit [address] [address] Edu Chaudhary, DO [address] [place] [address] Pending Results Name Type Priority Associated Diagnoses [...] Depression Monitoring 08/30/2025 08/30/2024 Colonoscopy 05/05/2028 05/05/2023, 06/06/2023, 11/04/2022, Additional history exists Colorectal Cancer Screening 05/05/2028 COVID-19 Vaccine Discontinued 06/04/2022, 06/2022, 04/18/2022, Additional history exists VITAMIN D LEVEL ONCE IN A LIFETIME-USE SMARTSET# [id number] Completed 01/17/2023, 04/05/2022, 04/28/2021, Additional history exists [...] 8:58 AM EDT 09/11/2024 9:49 AM EDT Simisa Sanchezalexandra BROWN LAB BLOOD OR[facility] [address] [place] [address] * (ABNORMAL) DIFFERENTIAL, AUTOMATED (09/11/2024 8:58 AM [...] AM EDT 09/11/2024 9:49 AM EDT Simi Tami BROWN [facility] BLOOD [facility] [address] [place] [address] * (ABNORMAL) ANEMIA CBC (09/11/2024 8:58 AM [...] 400 K/uL 09/11/2024 2:58 PM EDT [facility] MPV 13.9 6.6 - 11.1 fL 09/11/2024 2:58 PM EDT [facility] nRBCs 0 <=0 /100 WBCs 09/11/2024 2:58 PM EDT [facility] Blood Venous blood specimen / Unknown Venipuncture / Unknown 09/11/2024 8:58 AM EDT 09/11/2024 9:49 AM EDT Simi BROWN LAB BLOOD ORDE RENARD [facility] Organization Address City/State/ZIP Co de Phone Number [facility] [address] [facility] [place] [address] documented in this encounter Visit Diagnoses [...] and were consensually agreed upon. Care Teams Bobbin Doffer Relationship Specialty Start Date End Date Simi Hernandez CRNP [facility] [place] [address] PCP - General Nurse Practitioner 10/05/22 documented as of this encounter
--- OUTSIDE RECORDS SUMMARY | 2024-09-14 12:19 | External Medical Summary | Summary of Care ---
Author Name Unknown Organization [facility] Address [address] [place] [address] Phone [phone] Care Team Providers Care Traffic Control Specialist Name Role Phone Simi Hernandez Primary Care Provider Reason for Referral * Evaluate & Treat - Unlimited Visits (Within 30 days (routine)) - Authorized Specialty Diagnoses / Procedures Referred By Kenya soliz Referred To Contact Wound Care Diagnoses Cellulitis of right lower extremity Chronic osteomyelitis of fibula (HCC) Simi Hernandez CRNP [address] [place] [address] Referral ID Status Reason Start Date Expiration Date Visits Requested Visits Authorized [id number] Authorized Specialty Services Required 4 [phone] [...] 09/11/2024 9:00 AM EDT Office Visit Family [facility] [address] [place] [address] Simi Hernandez CRNP [address] [place] [address] Cellulitis of right lower extremity*; Chronic wound; [...] Debility 11/05/2022 Coronary artery disease invo lving [place] coronary artery of [place] heart without angina pectoris 11/05/2022 Medical home [...] mRNA, LNP-s, No Pre serve, 2-Dose Series ([employer] Platform) 04/18/2022,11/12/2021,01/28/2021,01/14 PPD 06/05/2018 Pneumococcal Conjugate Vacc, 13 [...] Stability Do you currently live in a chcf or have no steady place to sleep [...] BONE performed by Andrea Stanford MD at [facility] BONE DEBRIDEMENT, FIRST 20 CM2 Right 05/12/2023 R lateral ankle osteomyelitis-Andrea Velasco DPRadha CARDIAC CATH-CARDIOLOGY ONLY 07/06/2021 [facility] COLONOSCOPY, DIAGNOSTIC (RECTUM) polyp removed not retrieved / INPT [facility] COLONOSCOPY, DIAGNOSTIC (RECTUM) 01/26/2018 poor prep, repeat / INPT [facility] COLONOSCOPY, DIAGNOSTIC (RECTUM) N/A 11/04/2022 poor prep/non-bleeding internal hemorrhoids/recall 3 months/[place]oscopy/[place] COLONOSCOPY, DIAGNOSTIC (RECTUM) 05/05/2023 normal, repeat 5 yrs / COLONOSCOPY FLEXIBLE PROXIMAL DIAGNOSTIC performed by Blanche Chi DO at ENDOSCOPY [facility] CYSTOURETHROSCOPY, INJ FOR CHEMODENERVATION 03/29/2014 CYSTOURETHROSCOPY, INJ FOR CHEMODENERVATION performed by Hannah Milner MD at OR [facility] CYSTOURETHROSCOPY, INJ FOR CHEMODENERVATION 05/22/2015 EGD, FLEXIBLE, DIAGNOSTIC 01/25/2018 normal bx/[facility] EGD, FLEXIBLE, DIAGNOSTIC 04/30/2020 reflux esophagitis, gastric ulcer, repeat 2 mo / [facility] EGD, FLEXIBLE, DIAGNOSTIC 06/18/2020 gastric diverticulum, gastric irritation & ulceration, repeat 3-6 mo / [facility] EGD, FLEXIBLE, DIAGNOSTIC 03/19/2021 erosive gastritis, hiatal hernia / [facility] EGD, FLEXIBLE, DIAGNOSTIC 02/19/2022 erosive gastritis, hiatal hernia / [facility] EGD, FLEXIBLE, DIAGNOSTIC N/A 11/04/2022 large hiatal hernia/gastric diverticulum/EGD/[facility] TOOTH REMOV PART BONY (2) upper wisdom teeth removed IMPLANT/REPLACE SPINE INFUSION PUMP 07/2022 [facility] MASTECTOMY, MODIFIED RADICAL 09/2001 left breast- Dr. Ibrahim PAIN MANAGEMENT CATH 03/13/2009 Medtronic Baclofen pump- Dr. Shabazz- [facility] PARTIAL HIP REPLACEMENT & PROSTH left PARTIAL HYSTERECTOMY approx 1991 Ovaries remain in RECONSTRUCT/REPLACE SHOULDER JOINT Right 05/25/2022 Reverse total shoulder--Thad REMOVAL OF APPENDIX 06/25/[address] Johnson [facility] 06/25/2009 REPAIR THIGH FRACTURE, W/IMPLANT 10/2006 Hip ORIF- left hip Dr. Morales REVERSE TOTAL SHOULDER ARTHROPLASTY Right 05/25/2022 Dr. Oneil [facility] SACROILIAC JOINT INJECT W/GUIDANCE 08/17/2018 INJECTION SACROILIAC JOINT performed by Ulises Tran, DO at OR [facility] SACROILIAC JOINT INJECT W/GUIDANCE 10/09/2018 INJECTION SACROILIAC JOINT performed by Ulises Tran, DO at OR [facility] SACROILIAC JOINT INJECT W/GUIDANCE 02/01/2019 INJECTION SACROILIAC JOINT performed by Ulises Tran, DO at OR [facility] Current Outpatient Medications Medication Sig Dispense Refill [...] COVID-19 mRNA, LNP-s, No Preserve, 2-Dose Series ([employer] Platform) 04/18/2022 Denosumab 01/03/2019 PPD 06/05/2018 Pneumococcal Conjugate [...] of separately billed services. Kirstin, MSN, KEVIN [facility] Medicine documented in this encounter Plan of Treatment Upcoming Encounters Date Type Department Care Team (Late st Contact Info) Description 09/26/2024 3:00 PM EDT Office Visit [facility] [address] [place] [address] Simi Hernandez CRNP [address] [place] [address] 10/09/2024 10:00 AM EST Office Visit [facility] Surgery [facility] [address] [place] [address] Hannah Nicolas MD 200 [place] [address] 10/11/2024 2:05 PM EST NeuroDiagnostic Study Neurophysiology [facility] [address] [place], [place] [address] Silver Mcduffie, [address] [place] [address] 10/23/2024 3:00 PM EST Office Visit [facility] [address] [place] [address] Simi Hernandez CRNP [address] [place] [address] 10/24/2024 2:00 PM EST Cardiac Studies Cardiac Studies, [facility] [address] [place] [address] 10/24/2024 3:00 PM EST Office Visit Cardiology, [facility] [address] [place] [address] Camille Cuevas PA-C 132 [place] [address] 10/26/2024 11:00 AM EST Office Visit Dermatology, [facility] [address] [place] [address] Kymberly Duque PA-C [address] [place] [address] 11/23/2024 3:00 PM EST Office Visit Family Practice [facility] [address] [place] [address] Simi Hernandez CRNP [address] [place] [address] 02/04/2025 11:20 AM EDT Office Visit Neurology [facility] [address] [place] [address] Andrea Walker MD 200 [place] [address] 02/13/2025 1:30 PM EDT Office Visit Urology [facility] [address] [place] [address] Elba Morales PA-C [address] [place] [address] 05/16/2025 8:00 AM EDT Office Visit [facility] Eye [facility] [address] [place] [address] Edu Chaudhary, DO [address] [place] [address] Pending Results Name Type Priority Associated Diagnoses [...] lower extremity Expected: 09/11/2024 (Approximate), Expires: 09/11/2025 Scheduled Procedures Name Priority Associated Diagnoses Date/Ti [...] D LEVEL ONCE IN A LIFETIME-USE SMARTSET# 54042 Completed 01/17/2023, 04/05/2022, 04/28/2021, Additional history exists [...] EDT 09/11/2024 9:49 AM EDT Simi Tami Rhed KEVIN LAB BLOOD RACHEL GLYNN [facility] Organization Address City/State/ZIP Co de Phone Number [facility] [address] [place] [address] * (ABNORMAL) DIFFERENTIAL, AUTOMATED (09/11/2024 [...] AM EDT 09/11/2024 9:49 AM EDT Simi Hernandez KEVIN LAB BLOOD ORDE RENARD [facility] [address] [place] [address] * (ABNORMAL) ANEMIA CBC (09/11/2024 [...] EDT Simi BROWN LAB BLOOD ORDE RENARD [facility] Organization Address City/State/ZIP Co de Phone Number LABORATORY [facility] [address] [facility] [place] [address] documented in this encounter Visit Diagnoses Diagnosis [...] and were consensually agreed upon. Care Teams Traffic Control Specialist Relationship Specialty Start Date End Date Simi Hernandez CRNP [address] [facility] [place] [address] PCP - General Nurse Practitioner 10/05/22 documented as of this encounter
--- OUTSIDE RECORDS SUMMARY | 2024-09-14 12:19 | External Medical Summary | Summary of Care ---
Author Name Unknown Organization [facility] Address [address] [place] [address] Phone [phone] Care Team Providers Care Manager Of Health Name Role Phone Simi Hernandez Primary Care Provider Reason for Referral * Evaluate & Treat - Unlimited Visits (Within 30 days (routine)) - Authorized Specialty Diagnoses / Procedures Referred By Kenya soliz Referred To Contact Wound Care Diagnoses Cellulitis of right lower extremity Chronic osteomyelitis of fibula (HCC) Simi Hernandez CRNP [address] [place] [address] Referral ID Status Reason Start Date Expiration Date Visits Requested Visits Authorized [id number] Authorized Specialty Services Required 4 [phone] [...] 09/11/2024 9:00 AM EDT Office Visit Family [facility] [address] [place] [address] Simi Hernandez CRNP [address] [place] [address] Cellulitis of right lower extremity*; Chronic wound; [...] Debility 11/05/2022 Coronary artery disease invo lving [place] coronary artery of [place] heart without angina pectoris 11/05/2022 Medical home patient encounter 09/30/2022 S/P shoulder replacement, right 09/07/2022 ESBL E. coli carrier 09/07/2022 Presence of intrathecal baclofen pump 09/07/2022 History of PA (myocardial infarction) 05/12/2022 Mass of chest wall, [...] mRNA, LNP-s, No Pre serve, 2-Dose Series ([employer]) 04/18/2022,11/12/2021,01/28/2021,01/14 PPD 06/05/2018 Pneumococcal Conjugate Vacc, 13 [...] Stability Do you currently live in a half-way or have no steady place to sleep [...] BONE performed by Andrea Stanford MD at [facility] BONE DEBRIDEMENT, FIRST 20 CM2 Right 05/12/2023 R lateral ankle osteomyelitis-Andrea Velasco DPRadha CARDIAC CATH-CARDIOLOGY ONLY 07/06/2021 [facility] COLONOSCOPY, DIAGNOSTIC (RECTUM) polyp removed not retrieved / INPT [facility] COLONOSCOPY, DIAGNOSTIC (RECTUM) 01/26/2018 poor prep, repeat / INPT [facility] COLONOSCOPY, DIAGNOSTIC (RECTUM) N/A 11/04/2022 poor prep/non-bleeding internal hemorrhoids/recall 3 months/[place]/[facility] COLONOSCOPY, DIAGNOSTIC (RECTUM) 05/05/2023 normal, repeat 5 yrs / COLONOSCOPY FLEXIBLE PROXIMAL DIAGNOSTIC performed by Blanche Chi DO at ENDOSCOPY [facility] CYSTOURETHROSCOPY, INJ FOR CHEMODENERVATION 03/29/2014 CYSTOURETHROSCOPY, INJ FOR CHEMODENERVATION performed by Hannah Milner MD at OR [facility] CYSTOURETHROSCOPY, INJ FOR CHEMODENERVATION 05/22/2015 EGD, FLEXIBLE, DIAGNOSTIC 01/25/2018 normal bx/[facility] EGD, FLEXIBLE, DIAGNOSTIC 04/30/2020 reflux esophagitis, gastric ulcer, repeat 2 mo / [facility] EGD, FLEXIBLE, DIAGNOSTIC 06/18/2020 gastric diverticulum, gastric irritation & ulceration, repeat 3-6 mo / [facility] EGD, FLEXIBLE, DIAGNOSTIC 03/19/2021 erosive gastritis, hiatal hernia / [facility] EGD, FLEXIBLE, DIAGNOSTIC 02/19/2022 erosive gastritis, hiatal hernia / [facility] EGD, FLEXIBLE, DIAGNOSTIC N/A 11/04/2022 large hiatal hernia/gastric diverticulum/EGD/[facility] TOOTH REMOV PART BONY (2) upper wisdom teeth removed IMPLANT/REPLACE SPINE INFUSION PUMP 07/2022 [facility] MASTECTOMY, MODIFIED RADICAL 09/2001 left breast- Dr. Ibrahim PAIN MANAGEMENT CATH 03/13/2009 Medtronic Baclofen pump- Dr. Shabazz- [facility] PARTIAL HIP REPLACEMENT & PROSTH left PARTIAL HYSTERECTOMY approx 1991 Ovaries remain in RECONSTRUCT/REPLACE SHOULDER JOINT Right 05/25/2022 Reverse total shoulder--Thad REMOVAL OF APPENDIX 06/25/[address] Johnson [facility] 06/25/2009 REPAIR THIGH FRACTURE, W/IMPLANT 10/2006 Hip ORIF- left hip Dr. Morales REVERSE TOTAL SHOULDER ARTHROPLASTY Right 05/25/2022 Dr. Oneil [facility] SACROILIAC JOINT INJECT W/GUIDANCE 08/17/2018 INJECTION SACROILIAC JOINT performed by Ulises Tran, DO at OR [facility] SACROILIAC JOINT INJECT W/GUIDANCE 10/09/2018 INJECTION SACROILIAC JOINT performed by Ulises Tran, DO at OR [facility] SACROILIAC JOINT INJECT W/GUIDANCE 02/01/2019 INJECTION SACROILIAC JOINT performed by Ulises Tran, DO at OR [facility] Current Outpatient Medications Medication Sig Dispense Refill [...] COVID-19 mRNA, LNP-s, No Preserve, 2-Dose Series ([employer]) 04/18/2022 Denosumab 01/03/2019 PPD 06/05/2018 Pneumococcal Conjugate [...] of separately billed services. Kirstin, MSN, KEVIN [facility] Medicine documented in this encounter Miscellaneous Notes * Addendum Note - Edna Garcia TECH - 09/13/2024 5:41 AM EDTAddended by: EDNA GARCIA on: 09/13/2024 05:41 AM Modules accepted: Orders * Addendum Note - Edna Garcia TECH - 09/13/2024 5:39 AM EDTAddended by: EDNA GARCIA on: 09/13/2024 05:39 AM Modules accepted: Orders documented in this encounter Plan of Treatment Upcoming Encounters Date Type Department Care Team (Late st Contact Info) Description 09/26/2024 3:00 PM EDT Office Visit Family Practice [facility] [address] [place] [address] Simi Hernandez CRNP [address] [facility] [place] [address] 10/09/2024 10:00 AM EST Office Visit [facility] Surgery [facility] [address] [place] [address] Hannah Nicolas MD [address] [facility] [place] [address] 10/11/2024 2:05 PM EST NeuroDiagnostic Study Neurophysiology [facility] [address] [facility] [address] Silver Mcduffie DO [address] [facility] [address] 10/23/2024 3:00 PM EST Office Visit [facility] [address] [place] [address] Simi Hernandez CRNP [address] [place] [address] 10/24/2024 2:00 PM EST Cardiac Studies Cardiac Studies, [facility] [address] [place] [address] 10/24/2024 3:00 PM EST Office Visit Cardiology, [facility] [address] [facility] [place] [address] Camille Cuevas PA-C [address] [facility] [place] [address] 10/26/2024 11:00 AM EST Office Visit Dermatology, [place] [facility]ina [address] [place] [address] [place] [address] Kymberly Duque PA-C [address] [place] [address] 11/23/2024 3:00 PM EST Office Visit [facility] [address] [place] [address] Simi Hernandez CRNP [address] [facility] [address] 02/04/2025 11:20 AM EDT Office Visit Neurology [facility] [place] [address] [place] [address] Andrea Walker MD [address] [facility] [place] [address] 02/13/2025 1:30 PM EDT Office Visit Urology [place] Avina [address] [place] [address] [place] [address] Elba Morales PA-C [address] [place] [address] 05/16/2025 8:00 AM EDT Office Visit [facility] [address] [place] [address] Edu Chaudhary, DO [address] [place], [place] [id number] Pending Results Name Type Priority Associated Diagnoses [...] D LEVEL ONCE IN A LIFETIME-USE SMARTSET# 17763 Completed 01/17/2023, 04/05/2022, 04/28/2021, Additional history exists [...] 9:49 AM EDT Simi BROWN LAB BLOOD RACHEL GLYNN [facility] Organization Address City/State/[facility] Co de Phone Number [facility]ORY [facility] [address] [place] [address] * (ABNORMAL) DIFFERENTIAL, AUTOMATED (09/11/2024 [...] 9:49 AM EDT Simi BROWN LAB BLOOD RACHEL GLYNN [facility] Organization Address City/State/ZIP Co de Phone Number [facility] [address] [place] [address] * (ABNORMAL) ANEMIA CBC (09/11/2024 8:58 AM EDT) [facility] Signature WBC 15.09(H) 4.00 - 10.80 K/uL 09/11/2024 [...] 9:49 AM EDT Simi BROWN LAB BLOOD RACHEL GLYNN [facility] Organization Address City/State/[facility] Co de Phone Number LAB[facility]ORY [facility] [address] [place] [address] documented in this encounter Visit Diagnoses Diagnosis [...] and were consensually agreed upon. Care Teams Manager Of Health Relationship Specialty Start Date End Date Simi Hernandez CRNP [address] [place] [address] PCP - General Nurse Practitioner 10/05/22 documented as of this encounter
--- OUTSIDE RECORDS SUMMARY | 2024-09-14 12:19 | External Medical Summary | Summary of Care ---
Author Name Unknown Organization [facility] Address [address] [place] [address] Phone [phone] Care Team Providers Care Child Care Nurse Name Role Phone David Simi Tami BROWN Primary Care Provider Reason for Visit * Reason Comments Outpatient Testing Encounter Details Date Type Department Care Team (Late st Contact Info) Description 09/12/2024 11:40 AM EDT Laboratory Laboratory, [facility] [address] [place] [phone] [facility] [address] [place] [address] Cellulitis of right leg Allergies No known active allergiesdocumented as of [...] mouth every night at bedtime. 30 Tablet 09/07/2022 Active Multivitamin Adult Oral Tablet Take by mouth 1 Tablet daily . 30 Tablet 09/07/2022 Active Aspirin EC 81 MG Oral Tablet Delayed Release Take 1 Tablet by mouth in the morning. 01/04/2023 Active Azelaic Acid 15 % External Gel (Finacea)Indications :Rosacea Apply to face twice daily as needed 50 g 1 03/08/2023 Active LUCITA Knee Brace Medium Please eval and fit for bilateral knee brace as recommended by physical therapy. 2 Each O 07/27/2023 Active Eliquis 5 MG Oral Tablet Take 1 tablet by mouth twice daily 60 Tablet 5 02/23/2024 Active Omeprazole 40 MG Oral Capsule Delayed Release (PriLOSEC) Take 1 capsule by mouth in the morning 30 Capsule 5 02/23/2024 Active Magnesium Oxide 400 240 MG Oral Packet (Magnesium Oxide) Take 400 mg by mouth in the morning and 400 mg before bedtime. 180 Each 3 03/22/2024 Active Transdermal Pain Base External Cream Apply to feet daily as needed. 500 g 2 03/22/2024 Active Metoprolol Succinate ER 25 MG Oral Tablet Extended Release 24 Hour (toPROL XL) Take 1 Tablet by mouth in the morning and 1 Tablet before bedtime. 60 Tablet 11 05/21/2024 Active Losartan Potassium 25 MG Oral Tablet (Cozaar) Take 1 Tablet by mouth in the morning. 02/14/2024 Active predniSONE 10 MG Oral Tablet (Deltasone)Indicatio ns:Multiple sclerosis (HCC) Take 1 tablet by mouth once daily 90 Tablet 1 06/08/2024 Active Atorvastatin Calcium 40 MG Oral Tablet (Lipitor) Take 1 Tablet by mouth in the morning. 90 Tablet 3 06/28/2024 Active oxyBUTYnin Chloride ER 15 MG Oral Tablet Extended Release 24 Hour (Ditropan XL)Indications:Neuro genic bladder TAKE 1 TABLET BY MOUTH IN THE MORNING 90 Tablet 07/05/2024 Active DULoxetine HCl 30 MG Oral Capsule Delayed Release Particles (Cymbalta) Take 1 Capsule by mouth in the morning. Do not cut, crush or chew. 30 Capsule 5 07/27/2024 Active tiZANidine HCl 4 MG Oral Tablet (Zanaflex) Take 1 Tablet by mouth every 6 hours as needed for Muscle spasms. 360 Tablet 07/31/2024 Active Doxycycline Hyclate 50 MG Oral Capsule (Vibramycin)Indicati ons:Rosacea TAKE 1 CAPSULE BY MOUTH EVERY OTHER DAY 45 Capsule 07/31/2024 Active Sulfamethoxazole-Tri methoprim 800-160 MG Oral Tablet (Bactrim DS) Take 1 Tablet by mouth in the morning and 1 Tablet before bedtime. Do all this for 10 days. Until gone.. 20 Tablet 09/11/2024 Active documented as of this encounter (statuses [...] Debility 11/05/2022 Coronary artery disease invo lving [place] coronary artery of [place] heart without angina pectoris 11/05/2022 Medical home [...] Iron deficiency anemia 08/13/202012/28 Depression with anxiety 05/05/2020 08/3 Sacroiliitis 12/19/2018 08/13/2019 Chronic ulcer of left [...] mRNA, LNP-s, No Pre serve, 2-Dose Series ([employer] 04/18/2022,11/12/2021,01/28/2021,01/14 PPD 06/05/2018 Pneumococcal Conjugate Vacc, 13 [...] No 08/30/2024 Does the household have a [facility] source of income? (Household - for ages [...] Description 09/26/2024 3:00 PM EDT Office Visit [facility] 132 [facility] [place] [address] Simi Hernandze CRNP 132 [facility] [place] [address] 10/09/2024 10:00 AM EST Office Visit [facility] Surgery [facility] [address] [place] [address] Hannah Nicolas MD 200 [facility] [place] [address] 10/11/2024 2:05 PM EST NeuroDiagnostic Study Neurophysiology [facility] 132 [facility] [place] [address] Silver Mcduffie DO 200 [facility] [place] [address] 10/23/2024 3:00 PM EST Office Visit [facility] [address] [facility] [place], [place] [address] Simi Hernandez CRNP [address] [place] [address] 10/24/2024 2:00 PM EST Cardiac Studies Cardiac Studies, [facility] [address] [place] [address] 10/24/2024 3:00 PM EST Office Visit Cardiology, [facility] 132 [facility] [place] [address] Camille Cuevas PA-C [address] [place] [address] 10/26/2024 11:00 AM EST Office Visit Dermatology, Kirstie Avina [address] [place] [address] [place] [address] Kymberly Duque PA-C [address] [place] [address] 11/23/2024 3:00 PM EST Office Visit [facility] [address] [place] [address] Simi Hernandez CRNP [address] [place] [address] 02/04/2025 11:20 AM EDT [facility] [address] [place] [address] Andrea Walker MD [address] [place] [address] 02/13/2025 1:30 PM EDT Office Visit Urology Kirstie Avina [address] [place] [address] [place] [address] Elba Morales PA-C [address] [place] [address] 05/16/2025 8:00 AM EDT Office Visit [address] [address] Edu Chaudhary, DO [address] [place] [address] Scheduled Procedures Name Priority Associated Diagnoses Date/Ti [...] D LEVEL ONCE IN A LIFETIME-USE SMARTSET# 51422 Completed 01/17/2023, 04/05/2022, 04/28/2021, Additional history exists [...] Procedure Name Priority Date/Time Associated Diagnosis Comments DIFFERENTIAL, AUTOMATED STAT 09/12/2024 11:36 AM EDT Cellulitis of right leg PROCALCITONIN STAT 09/12/2024 11:36 AM EDT Cellulitis of right leg CBC STAT 09/12/2024 11:36 AM EDT Cellulitis of right leg CBC STAT 09/12/2024 11:36 AM EDT Cellulitis of right leg documented in this encounter Results * (ABNORMAL) DIFFERENTIAL, AUTOMATED (09/12/2024 11:36 AM EDT) WBC 13.81(H) 4.00 - 10.80 K/uL 09/12/2024 11:44 AM EDT [facility] [place] [facility] Neutrophils % 90.3(H) 40.0 - 75.0 % 09/12/2024 11:44 AM EDT [facility] [place] [facility] Lymphocytes % 2.8(L) 18.0 - 42.0 % 09/12/2024 11:44 AM EDT [facility] [place] [facility] Monocytes % 5.6 1.0 - 11.0 % 09/12/2024 11:44 AM EDT [facility] [place] [facility] Eosinophils % 1.2 0.0 - 6.0 % 09/12/2024 11:44 AM EDT [facility] [place] [facility] Basophils % 0.1 0.0 - 2.0 % 09/12/2024 11:44 AM EDT [facility] [place] [facility] Absolute Neutrophils 12.48(H) 1.80 - 7.70 K/uL 09/12/2024 11:44 AM EDT [facility] [place] [facility] Absolute Lymphocytes 0.39(L) 1.00 - 4.80 K/ul 09/12/2024 11:44 AM EDT [facility] [place] [facility] Absolute Monocytes 0.77 0.00 - 1.10 K/uL 09/12/2024 11:44 AM EDT [facility] [place] [facility] Absolute Eosinophils 0.16 0.00 - 0.70 K/uL 09/12/2024 11:44 AM EDT [facility] [place] [facility] Absolute Basophils 0.01 0.00 - 0.20 K/uL 09/12/2024 11:44 AM EDT [facility] [place] [facility] Blood Venous blood specimen / Unknown Venipuncture / Unknown 09/12/2024 11:36 AM EDT 09/12/2024 11:36 AM EDT Simi BROWN LAB BLOOD ORDE RENRAD [facility] Organization Address City/State/ZIP Co de Phone Number [facility] [place] [address] [place] [address] * (ABNORMAL) CBC (09/12/2024 11:36 AM EDT) WBC 13.81(H) 4.00 - 10.80 K/uL 09/12/2024 11:44 AM EDT [facility] [place] [facility] RBC 3.67 3.85 - 5.15 M/uL 09/12/2024 11:44 AM EDT [facility] [place] [facility] HGB 10.2(L) 12.0 - 15.3 g/dL 09/12/2024 11:44 AM EDT [facility] [place] [facility] HCT 31.9(L) 36.0 - 45.2 % 09/12/2024 11:44 AM EDT [facility] [place] [facility]10 MCV 86.9 81.5 - 97.5 fL 09/12/2024 11:44 AM EDT [facility] [place] [facility]10 MCH 27.8 27.0 - 34.0 pg 09/12/2024 11:44 AM EDT [facility] [place] [facility]10 MCHC 32.0 32.0 - 36.0 g/dL 09/12/2024 11:44 AM EDT [facility] [place] [facility]10 RDW 21.0 11.5 - 15.5 % 09/12/2024 11:44 AM EDT [facility] [place] [facility]10 PLT 263 140 - 400 K/uL 09/12/2024 11:44 AM EDT [facility] [place] [facility] MPV 10.5 6.6 - 11.1 fL 09/12/2024 11:44 AM EDT [facility] [place] [facility]10 Blood Venous blood specimen / Unknown Venipuncture / Unknown 09/12/2024 11:36 AM EDT 09/12/2024 11:36 AM EDT Simi BROWN LAB BLOOD ORDE [facility] Organization Address City/State/ZIP Co de Phone Number [facility] [place] [id number] [place] [address] * (ABNORMAL) PROCALCITONIN (09/12/2024 11:36 AM EDT) Procalcitonin 1.35(H) <0.10 ng/mL 09/12/2024 7:46 PM EDT LABORATORY [facility] Blood Venous blood specimen / Unknown Venipuncture / Unknown 09/12/2024 11:36 AM EDT 09/12/2024 11:36 AM EDT Narrative [facility] - 09/12/2024 7:46 PM EDT Less than 0.5 ng/mL: Low risk for progression to sepsis. Review patients condition for localized infections. 0.5 to 2.0 ng/mL: Intermediate risk for progresion to sepsis. Review underlying conditions. Recommend repeat PCT after 6 hours has elapsed. Greater than 2.0 ng/mL: high risk for progression to sepsis unless other causes are known. Simi BROWN LAB BLOOD CHRISTOPHE LUIS CARLOSLOLLY [facility] Organization Address City/State/ZIP Co de Phone Number LAB[facility]ATORY [facility] 100 [facility] [place] [phone] documented in this encounter Visit Diagnoses Diagnosis Cellulitis of right leg Cellulitis and abscess of leg, except foot documented in this encounter Advance Directives * [...] and were consensually agreed upon. Care Teams Child Care Nurse Relationship Specialty Start Date End Date Simi Hernandez CRNP [facility] [address] [place] [address] PCP - General Nurse Practitioner 10/05/22 documented as of this encounter
--- OUTSIDE RECORDS SUMMARY | 2024-09-14 12:20 | External Medical Summary | Summary of Care ---
Author Name Unknown Organization [facility] Address [address] [place] [address] Phone [phone] Care Team Providers Care Drag Out Man Name Role Phone David Simi Tami BROWN Primary Care Provider Reason for Visit * Reason Comments Outpatient Testing Encounter Details Date Type Department Care Team (Late st Contact Info) Description 09/12/2024 11:40 AM EDT Laboratory Laboratory, [facility] 132 [place] [phone] [facility] 132 [place] [address] Cellulitis of right leg Allergies No known active allergiesdocumented as of this encounter (statuses as of 09/12/2024) Medications Medication Sig Dispensed Refills Start Date [...] as of this encounter (statuses as of 09/12/2024) Active Problems Problem Noted Date Diagnosed Date [...] Debility 11/05/2022 Coronary artery disease invo lving [place] coronary artery of [place] heart without angina pectoris 11/05/2022 Medical home patient encounter 09/30/2022 S/P shoulder replacement, right 09/07/2022 ESBL E. coli carrier 09/07/2022 Presence of intrathecal baclofen pump 09/07/2022 History of SC (myocardial infarction) 05/12/2022 Mass of chest wall, [...] as of this encounter (statuses as of 09/12/2024) Resolved Problems Problem Noted Date Diagnosed Date [...] as of this encounter (statuses as of 09/12/2024) Immunizations Name Administration Dates Next Due COVID-19 mRNA, LNP-s, No Pre serve, 2-Dose Series ([employer]) 04/18/2022,11/12/2021,01/28/2021,01/14 PPD 06/05/2018 Pneumococcal Conjugate Vacc, 13 [...] No 08/30/2024 Does the household have a [facility] source of income? (Household - for ages [...] Description 09/26/2024 3:00 PM EDT Office Visit [facility] 132 [facility] [place] [address] Simi Hernandez CRNP 132 [facility] [place] [address] 10/09/2024 10:00 AM EST Office Visit [facility] Surgery [facility] [address] [place] [address] Hannah Nicolas MD 200 [facility] [place] [address] 10/11/2024 2:05 PM EST NeuroDiagnostic Study Neurophysiology [facility] 132 [facility] [place] [address] Silver Mcduffie DO 200 [facility] [place] [address] 10/23/2024 3:00 PM EST Office Visit [facility] [address] [facility] [place], [place] [address] Simi Hernandez CRNP [address] [place] [address] 10/24/2024 2:00 PM EST Cardiac Studies Cardiac Studies, [facility] [address] [place] [address] 10/24/2024 3:00 PM EST Office Visit Cardiology, [facility] 132 [facility] [place] [address] Camille Cuevas PA-C [address] [place] [address] 10/26/2024 11:00 AM EST Office Visit Dermatology, Kirstie Avina [address] [place] [address] [place] [address] Kymberly Duque PA-C [address] [place] [address] 11/23/2024 3:00 PM EST Office Visit [facility] [address] [place] [address] Simi Hernandez CRNP [address] [place] [address] 02/04/2025 11:20 AM EDT [facility] [address] [place] [address] Andrea Walker MD [address] [place] [address] 02/13/2025 1:30 PM EDT Office Visit Urology Kirstie Avina [address] [place] [address] [place] [address] Elba Morales PA-C [address] [place] [address] 05/16/2025 8:00 AM EDT Office Visit [address] [address] Edu Chaudhary, DO [address] [place] [address] Pending Results Name Type Priority Associated Diagnoses Date /Time PROCALCITONIN Lab STAT Cellulitis of right leg 09/12/2024 11:36 AM EDT Scheduled Procedures Name Priority Associated Diagnoses Date/Ti [...] D LEVEL ONCE IN A LIFETIME-USE SMARTSET# [id number] Completed 01/17/2023, 04/05/2022, 04/28/2021, Additional history exists [...] EDT Simi BROWN LAB BLOOD ORDE RENARD [facility] Organization Address City/State/ZIP Co de Phone Number [facility] [place] [address] [place] [address] * (ABNORMAL) CBC (09/12/2024 11:36 AM EDT) WBC 13.81(H) 4.00 - 10.80 K/uL 09/12/2024 11:44 AM EDT [facility] [place] [facility] RBC 3.67 3.85 - 5.15 M/uL 09/12/2024 11:44 AM EDT [facility] [place] [facility]10 HGB 10.2(L) 12.0 - 15.3 g/dL 09/12/2024 11:44 AM EDT [facility] [place] [facility]10 HCT 31.9(L) 36.0 - 45.2 % 09/12/2024 11:44 AM EDT [facility] [place] [facility]10 MCV 86.9 81.5 - 97.5 fL 09/12/2024 11:44 AM EDT [facility] [place] [facility]10 MCH 27.8 27.0 - 34.0 pg 09/12/2024 11:44 AM EDT [facility] [place] [facility]10 MCHC 32.0 32.0 - 36.0 g/dL 09/12/2024 11:44 AM EDT [facility] [place] [facility]10 RDW 21.0 11.5 - 15.5 % 09/12/2024 11:44 AM EDT [facility] [place] [facility] PLT 263 140 - 400 K/uL 09/12/2024 11:44 AM EDT [facility] [place] [facility]10 MPV 10.5 6.6 - 11.1 fL 09/12/2024 11:44 AM EDT [facility] [place] [facility]10 Blood Venous blood specimen / Unknown Venipuncture / Unknown 09/12/2024 11:36 AM EDT 09/12/2024 11:36 AM EDT Simi BROWN LAB BLOOD ORDE RENARD [facility] Organization Address City/State/ZIP Co de Phone Number LABORATORY [facility] [place] [id number] [place] [address] documented in this encounter Visit Diagnoses Diagnosis [...] and were consensually agreed upon. Care Teams Drag Out Man Relationship Specialty Start Date End Date Simi Hernandez CRNP 132 [place] [address] PCP - General Nurse Practitioner 10/05/22 documented as of this encounter
--- OUTSIDE RECORDS SUMMARY | 2024-09-14 12:20 | External Medical Summary ---
Author Name Unknown Address Unknown Organization [id number]:[facility] [address] [facility] [address] Laboratory Report Ordering Provider Test Date Status GATITO ANDREA 09/11/2024 09:48:00 Final Observation Date Value Abnormality Reference (Units ) Status Ferritin 09/11/2024 09:48:00 212 Above high normal 13 -150 (ng/mL) Final Postmenopausal women have hi gher ferritin levels than pre-menopausal women. The above reference interval is based on pre-menopausal women. Performing Location [facility] - [address] [facility] [address]
--- OUTSIDE RECORDS SUMMARY | 2024-09-14 12:20 | External Medical Summary ---
Author Name Unknown Address Unknown Organization [id number]:[facility] [place] [address] [facility] [place] [address] Laboratory Report Ordering Provider Test Date Status GATITO ANDREA 09/11/2024 08:58:00 Final Observation Date Value Abnormality Reference (Units ) Status WBC, Total 09/11/2024 08:58:00 15.09 Above high normal 4 .00-10.80 (K/uL) Final RBC 09/11/2024 08:58:00 3.79 3.85-5.15 (M/uL) Final Hemoglobin 09/11/2024 08:58:00 10.5 Below low normal 12 .0-15.3 (g/dL) Final Anemia reflex testing trigge rs on a HGB < 12.0 for Females and HGB < 13.0 for Males in accordance with the WHO Anemia Guidelines HCT 09/11/2024 08:58:00 35.0 Below low normal 36. 0-45.2 (%) Final MCV 09/11/2024 08:58:00 92.3 81.5-97.5 (fL) Final MCH 09/11/2024 08:58:00 27.7 27.0-34.0 (pg) Final MCHC 09/11/2024 08:58:00 30.0 32.0-36.0 (g/dL) Final RDW 09/11/2024 08:58:00 21.4 11.5-15.5 (%) Final Platelets 09/11/2024 08:58:00 236 140-400 (K /uL) Final MPV 09/11/2024 08:58:00 13.9 6.6-11.1 ( fL) Final Nucleated erythrocytes/100 leukocytes [Ratio] in Blood by Automated count 09/11/2024 08:58:00 0 <=0 (/100 WBCs) Final Performing Location LABORATORY C - [address] [facility] [address]
--- OUTSIDE RECORDS SUMMARY | 2024-09-14 12:20 | External Medical Summary ---
Author Name Unknown Address Unknown Organization [id number]:LABORATORY [place] [facility] - [address] [place] [address] Laboratory Report Ordering Provider Test Date Status GATITO ANDREA 09/12/2024 11:36:56 Final Observation Date Value Abnormality Reference (Units ) Status SYNC LEUKOCYTES IN BLOOD BY AUTOMATED COUNT 09/12/2024 11:36:56 13.81 Above high normal 4.00-10.80 (K/uL) Final Segs 09/12/2024 11:36:56 90.3 Above high normal 40.0-75.0 (%) Final Lymphs % 09/12/2024 11:36:56 2.8 Below low normal 18.0-42.0 (%) Final Monos 09/12/2024 11:36:56 5.6 1.0-11.0 (%) Final Eosinophils 09/12/2024 11:36:56 1.2 0.0-6.0 (%) Final Basos 09/12/2024 11:36:56 0.1 0.0-2.0 (%) Final Absolute Segs 09/12/2024 11:36:56 12.48 Above high normal 1.80-7.70 (K/uL) Final Lymphs, absolute 09/12/2024 11:36:56 0.39 Below low normal 1.00-4.80 (K/ul) Final Monos, Abs 09/12/2024 11:36:56 0.77 0.00-1.10 (K/uL) Final Eos, Abs 09/12/2024 11:36:56 0.16 0.00-0.70 (K/uL) Final Basos, Abs 09/12/2024 11:36:56 0.01 0.00-0.20 (K/uL) Final Performing Location LAB[facility]ATORY [place] [facility]-1 0 - [address] [place] [address]
--- OUTSIDE RECORDS SUMMARY | 2024-09-14 12:20 | External Medical Summary ---
Author Name Unknown Address Unknown Organization [id number]:[facility]ORY [facility] - [address] [facility] [address] Laboratory Report Ordering Provider Test Date Status GATITO ANDREA 09/11/2024 09:48:00 Final Observation Date Value Abnormality Reference (Units ) Status Folic Acid 09/11/2024 09:48:00 >20.0 >4.5 (ng/ mL) Final Performing Location [facility] - [address] [facility] [address]
--- OUTSIDE RECORDS SUMMARY | 2024-09-14 12:20 | External Medical Summary ---
Author Name Unknown Address Unknown Organization [id number]:LABORATORY [place] - [address] [facility] [address] Laboratory Report Ordering Provider Test Date Status ANITA ANDREASelwyn 09/11/2024 09:48:00 Final Observation Date Value Abnormality Reference (Units ) Status TSH 09/11/2024 09:48:00 2.10 0.27-4.20 (uIU/mL) Final Performing Location [facility] - [address] [facility] [address]
--- OUTSIDE RECORDS SUMMARY | 2024-09-14 12:20 | External Medical Summary ---
Author Name Unknown Address Unknown Organization [id number]:LABORATORY [facility] - [address] [place] [address] Laboratory Report Ordering Provider Test Date Status GATITO ANDREA 09/12/2024 11:36:56 Final Less than 0.5 ng/mL: Low ris k for progression to sepsis. Review patients condition for localized infections.

0.5 to 2.0 ng/mL: Intermediate risk for progresion to sepsis. Review underlying conditions. Recommend repeat PCT after 6 hours has elapsed.

Greater than 2.0 ng/mL: high risk for progression to sepsis unless other causes are known. Observation Date Value Abnormality Reference (Units ) Status Procalcitonin [Mass/volume] in Serum or Plasma by Immunoassay 09/12/2024 11:36:56 1.35 Above high normal <0.10 (ng/mL) Final Performing Location LABORATORY [facility] - [facility] [address] [facility] [address]
--- OUTSIDE RECORDS SUMMARY | 2024-09-14 12:20 | External Medical Summary | Summary of Care ---
Author Name Unknown Organization [facility] Address [address] [place] [address] Phone [phone] Care Team Providers Care New Car Inspector Name Role Phone Simi Hernandez Primary Care Provider Reason for Referral * Evaluate & Treat - Unlimited Visits (Within 30 days (routine)) - Authorized Specialty Diagnoses / Procedures Referred By Kenya soliz Referred To Contact Wound Care Diagnoses Cellulitis of right lower extremity Chronic osteomyelitis of fibula (HCC) Simi Hernandez CRNP [address] [place] [address] Referral ID Status Reason Start Date Expiration Date Visits Requested Visits Authorized [id number] Authorized Specialty Services Required 4 [phone] [...] 09/11/2024 9:00 AM EDT Office Visit Family [facility] [address] [place] [address] Simi Hernandez CRNP [address] [place] [address] Cellulitis of right lower extremity*; Chronic wound; Chronic osteomyelitis of fibula (HCC); Stasis dermatitis of both legs; Polyneuropathy Allergies No known active allergiesdocumented as of this encounter (statuses as of 09/11/2024) Medications Medication Sig Dispensed Refills Start Date [...] as of this encounter (statuses as of 09/11/2024) Active Problems Problem Noted Date Diagnosed Date [...] Debility 11/05/2022 Coronary artery disease invo lving [place] coronary artery of [place] heart without angina pectoris 11/05/2022 Medical home [...] as of this encounter (statuses as of 09/11/2024) Resolved Problems Problem Noted Date Diagnosed Date [...] as of this encounter (statuses as of 09/11/2024) Immunizations Name Administration Dates Next Due COVID-19 mRNA, LNP-s, No Pre serve, 2-Dose Series (BrandCont) 04/18/2022,11/12/2021,01/28/2021,01/14 PPD 06/05/2018 Pneumococcal Conjugate Vacc, 13 [...] painful. This started after EMG last week. EMG was on and redness startedon Tuesday. There is moderate pain Denies fever, [...] BONE performed by Andrea Stanford MD at [facility] BONE DEBRIDEMENT, FIRST 20 CM2 Right 05/12/2023 R lateral ankle osteomyelitis-Andrea Velasco DPRadha CARDIAC CATH-CARDIOLOGY ONLY 07/06/2021 [facility] COLONOSCOPY, DIAGNOSTIC (RECTUM) polyp removed not retrieved / INPT [facility] COLONOSCOPY, DIAGNOSTIC (RECTUM) 01/26/2018 poor prep, repeat / INPT [facility] COLONOSCOPY, DIAGNOSTIC (RECTUM) N/A 11/04/2022 poor prep/non-bleeding internal hemorrhoids/recall 3 months/Colonoscopy/[facility] COLONOSCOPY, DIAGNOSTIC (RECTUM) 05/05/2023 normal, repeat 5 yrs / COLONOSCOPY FLEXIBLE PROXIMAL DIAGNOSTIC performed by Blanche Chi DO at ENDOSCOPY [facility] CYSTOURETHROSCOPY, INJ FOR CHEMODENERVATION 03/29/2014 CYSTOURETHROSCOPY, INJ FOR CHEMODENERVATION performed by Hannah Milner MD at OR [facility] CYSTOURETHROSCOPY, INJ FOR CHEMODENERVATION 05/22/2015 EGD, FLEXIBLE, DIAGNOSTIC 01/25/2018 normal bx/[facility] EGD, FLEXIBLE, DIAGNOSTIC 04/30/2020 reflux esophagitis, gastric ulcer, repeat 2 mo / [facility] EGD, FLEXIBLE, DIAGNOSTIC 06/18/2020 gastric diverticulum, gastric irritation & ulceration, repeat 3-6 mo / [facility] EGD, FLEXIBLE, DIAGNOSTIC 03/19/2021 erosive gastritis, hiatal hernia / [facility] EGD, FLEXIBLE, DIAGNOSTIC 02/19/2022 erosive gastritis, hiatal hernia / [facility] EGD, FLEXIBLE, DIAGNOSTIC N/A 11/04/2022 large hiatal hernia/gastric diverticulum/EGD/[facility] TOOTH REMOV PART BONY (2) upper wisdom teeth removed IMPLANT/REPLACE SPINE INFUSION PUMP 07/2022 [facility] MASTECTOMY, MODIFIED RADICAL 09/2001 left breast- Dr. Ibrahim PAIN MANAGEMENT CATH 03/13/2009 Medtronic Baclofen pump- Dr. Shabazz- [facility] PARTIAL HIP REPLACEMENT & PROSTH left PARTIAL HYSTERECTOMY approx 1991 Ovaries remain in RECONSTRUCT/REPLACE SHOULDER JOINT Right 05/25/2022 Reverse total shoulder--Thad REMOVAL OF APPENDIX 06/25/[address] Johnson [facility] 06/25/2009 REPAIR THIGH FRACTURE, W/IMPLANT 10/2006 Hip ORIF- left hip Dr. Morales REVERSE TOTAL SHOULDER ARTHROPLASTY Right 05/25/2022 Dr. Oneil [facility] SACROILIAC JOINT INJECT W/GUIDANCE 08/17/2018 INJECTION SACROILIAC JOINT performed by Ulises Tran, DO at OR [facility] SACROILIAC JOINT INJECT W/GUIDANCE 10/09/2018 INJECTION SACROILIAC JOINT performed by Ulises Tran, DO at OR [facility] SACROILIAC JOINT INJECT W/GUIDANCE 02/01/2019 INJECTION SACROILIAC JOINT performed by Ulises Tran, DO at OR [facility] Current Outpatient Medications Medication Sig Dispense [...] COVID-19 mRNA, LNP-s, No Preserve, 2-Dose Series (BrandCont) 04/18/2022 Denosumab 01/03/2019 PPD 06/05/2018 Pneumococcal Conjugate [...] right lower extremity S/P emg last week Increased symptoms were 2 days after Add [...] documentation of the care provided to Kandy Banksllau excluding any time spent in the performance of separately billed services. Kirstin, MSN, KEVIN [facility] Medicine documented in this encounter Plan of Treatment Upcoming Encounters Date Type Department Care Team (Late st Contact Info) Description 09/26/2024 3:00 PM EDT Office Visit [facility] [address] [place] [address] Simi Hernandez CRNP [address] [place] [address] 10/09/2024 10:00 AM EST Office Visit [facility] Surgery [facility] [address] [place] [address] Hannah [facility] [address] 10/11/2024 2:05 PM EST NeuroDiagnostic Study Neurophysiology [facility] [address] [place] [address] Silver Mcduffie, DO [address] [facility] [address] 10/23/2024 3:00 PM EST Office Visit [facility] [address] [place] [address] Simi Hernandez CRNP [address] [place] [address] 10/24/2024 2:00 PM EST Cardiac Studies Cardiac Studies, [facility] [address] [place] [address] 10/24/2024 3:00 PM EST Office Visit Cardiology, [facility] [address] [place] [address] Camille Cuevas PA-C [address] [place] [address] 10/26/2024 11:00 AM EST Office Visit Dermatology, [place]irstie Avina [address] [place] [address] Kymberly Duque PA-C [address] [place] [address] 11/23/2024 3:00 PM EST Office Visit [facility] [address] [facility] [place] [address] Simi Hernandez CRNP [address] [place] [address] 02/04/2025 11:20 AM EDT Office Visit Neurology [facility] [address] [place] [address] Andrea Walker MD [address] [place] [address] 02/13/2025 1:30 PM EDT Office Visit Urology [facility] [address] [place] [address] Elba Morales PA-C [address] [place] [address] 05/16/2025 8:00 AM EDT Office Visit [address] [id number] Edu Chaudhary, DO [address] [facility] [place] [id number] Pending Results Name Type Priority Associated Diagnoses Date /Time CBC WITH WBC DIFFERENTIAL AND ANEMIA REFLEX WORKUP Lab Routine Cellulitis of right lower extremity 09/11/2024 9:58 AM EDT ANEMIA CBC Lab Routine Cellulitis of right lower extremity 09/11/2024 9:58 AM EDT DIFFERENTIAL, AUTOMATED Lab Routine Cellulitis of right lower extremity 09/11/2024 9:58 AM EDT ANEMIA REFLEX CHEMISTRY HOLD Lab Routine Cellulitis of right lower extremity 09/11/2024 9:58 AM EDT Scheduled Orders Name Type Priority [...] D LEVEL ONCE IN A LIFETIME-USE SMARTSET# [id number] Completed 01/17/2023, 04/05/2022, 04/28/2021, Additional history exists [...] as of this encounter Visit Diagnoses Diagnosis Cellulitis of [...] and were consensually agreed upon. Care Teams New Car Inspector Relationship Specialty Start Date End Date Simi Hernandez CRNP [address] [place] [address] PCP - General Nurse Practitioner 10/05/22 documented as of this encounter
--- OUTSIDE RECORDS SUMMARY | 2024-09-14 12:20 | External Medical Summary ---
Author Name Unknown Address Unknown Organization K01:LABORATORY [facility] - [address] [facility] [address] Laboratory Report Ordering Provider Test Date Status GATITO ANDREA 09/11/2024 08:58:00 Final Observation Date Value Abnormality Reference (Units ) Status SYNC LEUKOCYTES IN BLOOD BY AUTOMATED COUNT 09/11/2024 08:58:00 15.09 Above high normal 4.00-10.80 (K/uL) Final Segs 09/11/2024 08:58:00 90.3 Above high normal 40.0-75.0 (%) Final Lymphs % 09/11/2024 08:58:00 2.6 Below low normal 18.0-42.0 (%) Final Monos 09/11/2024 08:58:00 6.2 1.0-11.0 (%) Final Eosinophils 09/11/2024 08:58:00 0.3 0.0-6.0 (%) Final Basos 09/11/2024 08:58:00 0.1 0.0-2.0 (%) Final Immature Granulocyte, Percent 09/11/2024 08:58:00 0.5 0.0-2.0 (%) Final Absolute Segs 09/11/2024 08:58:00 13.63 Above high normal 1.80-7.70 (K/uL) Final Lymphs, absolute 09/11/2024 08:58:00 0.39 Below low normal 1.00-4.80 (K/ul) Final Monos, Abs 09/11/2024 08:58:00 0.94 0.00-1.10 (K/uL) Final Eos, Abs 09/11/2024 08:58:00 0.04 0.00-0.70 (K/uL) Final Basos, Abs 09/11/2024 08:58:00 0.02 0.00-0.20 (K/uL) Final Immature Granulocytes, Number 09/11/2024 08:58:00 0.07 0.00-0.20 (K/uL) Final Performing Location LABORATORY [facility] - [facility] [address] [facility] [address]
--- OUTSIDE RECORDS SUMMARY | 2024-09-14 12:20 | External Medical Summary ---
Author Name Unknown Address Unknown Organization K01:LABORATORY [facility] - [address] [place] [address] Laboratory Report Ordering Provider Test Date Status GATITO ANDREA 09/11/2024 09:48:00 Final Observation Date Value Abnormality Reference (Units ) Status Vitamin B12 09/11/2024 09:48:00 [phone] (pg/mL) Final Performing Location LABORATORY [facility] - [address] [place] [address]
--- OUTSIDE RECORDS SUMMARY | 2024-09-14 12:20 | External Medical Summary ---
Author Name Unknown Address Unknown Organization K01:LABORATORY [place] [address] [address] [facility] [address] Laboratory Report Ordering Provider Test Date Status GATITO ANDREA 09/11/2024 08:58:00 Final Observation Date Value Abnormality Reference (Units ) Status Retic, % (auto) 09/11/2024 08:58:00 1.52 0.80-1.90 (%) Final Reticulocytes, Absolute 09/11/2024 08:58:00 58.4 31.3-100.1 (K/uL) Final Reticulocyte fraction, immature 09/11/2024 08:58:00 17.7 2.5-20.6 (%) Final Reticulocyte HGB 09/11/2024 08:58:00 31.5 29.7-37.4 (pg) Final Performing Location LABORATORY [facility] - [address] [facility] [address]
--- OUTSIDE RECORDS SUMMARY | 2024-09-14 12:20 | External Medical Summary | Summary of Care ---
Author Name Unknown Organization [facility] Address [address] [place] [address] Phone [phone] Care Team Providers Care Field Kiln Burner Name Role Phone Simi Hernandez Primary Care Provider Reason for Visit * Reason Onset Date Comments Advice 09/07/2024 Encounter Details Date Type Department Care Team (Late st Contact Info) Description 09/07/2024 Telephone Family Practice [facility] [address] [facility] [place] [address] Simi Hernandez CRNP 132 [facility] [place] [address] Advice Allergies No known active allergiesdocumented as [...] EVERY OTHER DAY 45 Capsule 07/31/2024 Active documented as of this encounter (statuses [...] Debility 11/05/2022 Coronary artery disease invo lving [place] coronary artery of [place] heart without angina pectoris 11/05/2022 Medical home [...] encounter Miscellaneous Notes * Telephone Encounter - Hannah Abernathy LPN - 09/11/2024 10:36 AM EDT Saw pt today. See OV note. * Telephone Encounter - Simi Hernandez CRNP - 09/07/2024 4:43 PM EDT Left message for patient to call back EMG confirms severe neuropathy. This is of multiple nerves in leg.. This can cause her symptoms. Likely from MS but also from lumbar spine disease. Kirstin, ADELSO, KEVIN [facility] * Telephone Encounter - Mel Redd OSA - 09/07/2024 9:31 AM EDT Pt had her nerve test done yesterday, states she was told she has neuropathy, pt has questions regarding this. She is asking to speak with Simi Hernandez when possible. documented in this encounter Plan of Treatment Upcoming Encounters Date Type Department Care Team (Late st Contact Info) Description 09/26/2024 3:[address]T Office Visit [facility] [address] [place] [address] Simi Hernandez CRNP [address] [place] [address] 10/09/2024 10:00 AM EST Office Visit [facility] Surgery [facility] [address] [place] [address] Hannah Nicolas MD [facility] [address] 10/11/2024 2:05 PM EST NeuroDiagnostic Study Neurophysiology [facility] [address] [place] [address] Silver Mcduffie DO 200 [facility] [address] 10/23/2024 3:00 PM EST Office Visit [facility] [address] [place] [address] Simi Hernandez CRNP [address] [place] [address] 10/24/2024 2:00 PM EST Cardiac Studies Cardiac Studies, [facility] [address] [place] [address] 10/24/2024 3:00 PM EST Office Visit Cardiology, [facility] [address] [place] [address] Camille Cuevas PA-C [address] [place] [address] 10/26/2024 11:00 AM EST Office Visit Dermatology, [place]irstie Avina [address] [place] [address] Kymberly Duque PA-C [address] [place] [address] 11/23/2024 3:00 PM EST Office Visit Family Practice [facility] [address] [place] [address] Simi Hernandez CRNP [address] [place] [address] 02/04/2025 11:20 AM EDT Office Visit [facility] [address] [facility] [place] [address] Andrea Walker MD [address] [place] [address] 02/13/2025 1:30 PM EDT Office Visit Urology [place]ie Avina [address] [facility] [address] [place] [address] Elba Mroales PA-C [address] [place] [address] 05/16/2025 8:00 AM EDT Office Visit [facility] [address] [place] [address] Edu Chaudhary, DO [address] [place], [place] [id number] Scheduled Procedures Name Priority Associated Diagnoses Date/Ti [...] Depression Monitoring 08/30/2025 08/30/2024 Colonoscopy 05/05/2028 05/05/2023, 0606/2023, 11/04/2022, Additional history exists Colorectal Cancer Screening 05/05/2028 COVID-19 Vaccine Discontinued 06/04/2022, 06/2022, 04/18/2022, Additional history exists VITAMIN D LEVEL ONCE IN A LIFETIME-USE SMARTSET# [id number] Completed 01/17/2023, 04/05/2022, 04/28/2021, Additional history exists [...] filedocumented as of this encounter Advance Directives * Full Code [...] and were consensually agreed upon. Care Teams Field Kiln Burner Relationship Specialty Start Date End Date Simi Hernandez CRNP [address] [place] [address] PCP - General Nurse Practitioner 10/05/22 documented as of this encounter
--- OUTSIDE RECORDS SUMMARY | 2024-09-14 12:20 | External Medical Summary | Summary of Care ---
Author Name Unknown Organization [facility] Address [address] [place] [address] Phone [phone] Care Team Providers Care Charging Manipulator Name Role Phone Simi Hernandez Primary Care Provider Reason for Referral * Evaluate & Treat - Unlimited Visits (Within 30 days (routine)) - Authorized Specialty Diagnoses / Procedures Referred By Kenya soliz Referred To Contact Wound Care Diagnoses Cellulitis of right lower extremity Chronic osteomyelitis of fibula (HCC) Simi Hernandez CRNP [address] [place] [address] Referral ID Status Reason Start Date Expiration Date Visits Requested Visits Authorized [id number] Authorized Specialty Services Required 4 [phone] [...] 09/11/2024 9:00 AM EDT Office Visit Family [facility] [address] [place] [address] Simi Hernandez CRNP [address] [place] [address] Cellulitis of right lower extremity*; Chronic wound; [...] Debility 11/05/2022 Coronary artery disease invo lving [place] coronary artery of [place] heart without angina pectoris 11/05/2022 Medical home patient encounter 09/30/2022 S/P shoulder replacement, right 09/07/2022 ESBL E. coli carrier 09/07/2022 Presence of intrathecal baclofen pump 09/07/2022 History of [place] (myocardial infarction) 05/12/2022 Mass of chest wall, [...] mRNA, LNP-s, No Pre serve, 2-Dose Series (ProspectStream) 04/18/2022,11/12/2021,01/28/2021,01/14 PPD 06/05/2018 Pneumococcal Conjugate Vacc, 13 [...] BONE performed by Andrea Stanford MD at [facility] BONE DEBRIDEMENT, FIRST 20 CM2 Right 05/12/2023 R lateral ankle osteomyelitis-Andrea Velasco DPRadha CARDIAC CATH-CARDIOLOGY ONLY 07/06/2021 [facility] COLONOSCOPY, DIAGNOSTIC (RECTUM) polyp removed not retrieved / INPT [facility] COLONOSCOPY, DIAGNOSTIC (RECTUM) 01/26/2018 poor prep, repeat / INPT [facility] COLONOSCOPY, DIAGNOSTIC (RECTUM) N/A 11/04/2022 poor prep/non-bleeding internal hemorrhoids/recall 3 months/Colonoscopy/[place] COLONOSCOPY, DIAGNOSTIC (RECTUM) 05/05/2023 normal, repeat 5 yrs / COLONOSCOPY FLEXIBLE PROXIMAL DIAGNOSTIC performed by Blanche Chi DO at ENDOSCOPY [facility] CYSTOURETHROSCOPY, INJ FOR CHEMODENERVATION 03/29/2014 CYSTOURETHROSCOPY, INJ FOR CHEMODENERVATION performed by Hannah Milner MD at OR [facility] CYSTOURETHROSCOPY, INJ FOR CHEMODENERVATION 05/22/2015 EGD, FLEXIBLE, DIAGNOSTIC 01/25/2018 normal bx/[facility] EGD, FLEXIBLE, DIAGNOSTIC 04/30/2020 reflux esophagitis, gastric ulcer, repeat 2 mo / [facility] EGD, FLEXIBLE, DIAGNOSTIC 06/18/2020 gastric diverticulum, gastric irritation & ulceration, repeat 3-6 mo / [facility] EGD, FLEXIBLE, DIAGNOSTIC 03/19/2021 erosive gastritis, hiatal hernia / [facility] EGD, FLEXIBLE, DIAGNOSTIC 02/19/2022 erosive gastritis, hiatal hernia / [facility] EGD, FLEXIBLE, DIAGNOSTIC N/A 11/04/2022 large hiatal hernia/gastric diverticulum/EGD/[facility] TOOTH REMOV PART BONY (2) upper wisdom teeth removed IMPLANT/REPLACE SPINE INFUSION PUMP 07/2022 [facility] MASTECTOMY, MODIFIED RADICAL 09/2001 left breast- Dr. Ibrahim PAIN MANAGEMENT CATH 03/13/2009 Medtronic Baclofen pump- Dr. Shabazz- [facility] PARTIAL HIP REPLACEMENT & PROSTH left PARTIAL HYSTERECTOMY approx 1991 Ovaries remain in RECONSTRUCT/REPLACE SHOULDER JOINT Right 05/25/2022 Reverse total shoulder--Thad REMOVAL OF APPENDIX 06/25/[address] Johnson [facility] 06/25/2009 REPAIR THIGH FRACTURE, W/IMPLANT 10/2006 Hip ORIF- left hip Dr. Morales REVERSE TOTAL SHOULDER ARTHROPLASTY Right 05/25/2022 Dr. Oneil [facility] SACROILIAC JOINT INJECT W/GUIDANCE 08/17/2018 INJECTION SACROILIAC JOINT performed by Ulises Tran, DO at OR [facility] SACROILIAC JOINT INJECT W/GUIDANCE 10/09/2018 INJECTION SACROILIAC JOINT performed by Ulises Tran, DO at OR [facility] SACROILIAC JOINT INJECT W/GUIDANCE 02/01/2019 INJECTION SACROILIAC JOINT performed by Ulises Tran, DO at OR [facility] Current Outpatient Medications Medication Sig Dispense [...] COVID-19 mRNA, LNP-s, No Preserve, 2-Dose Series (ProspectStream) 04/18/2022 Denosumab 01/03/2019 PPD 06/05/2018 Pneumococcal Conjugate [...] of separately billed services. Kirstin, MSN, KEVIN [facility] Medicine documented in this encounter Plan of Treatment Upcoming Encounters Date Type Department Care Team (Late st Contact Info) Description 09/26/2024 3:00 PM EDT Office Visit [facility] [address] [place] [address] Simi Hernandez CRNP [address] [place] [address] 10/09/2024 10:00 AM EST Office Visit [facility] Surgery [facility] [address] [place] [address] Hannah Nicolas MD 200 [place] [address] 10/11/2024 2:05 PM EST NeuroDiagnostic Study Neurophysiology [facility] 132 [facility] [place], [place] [address] Silver Mcduffie, 200 [place] [address] 10/23/2024 3:00 PM EST Office Visit [facility] 132 [facility] [place] [address] Simi Hernandez CRNP [address] [place] [address] 10/24/2024 2:00 PM EST Cardiac Studies Cardiac Studies, [facility] 132 [facility] [place] [address] 10/24/2024 3:00 PM EST Office Visit Cardiology, [facility] 132 [place] [address] Camille Cuevas PA-C 132 [place] [address] 10/26/2024 11:00 AM EST Office Visit Dermatology, [facility] [address] [place] [address] Kymberly Duque PA-C [address] [place] [address] 11/23/2024 3:00 PM EST Office Visit Family Practice [facility] 132 [place] [address] Simi Hernandez CRNP 132 [place] [address] 02/04/2025 11:20 AM EDT Office Visit Neurology [facility] [address] [place] [address] Andrea Walker MD 200 [place] [address] 02/13/2025 1:30 PM EDT Office Visit Urology [facility] [address] [place] [address] Elba Morales PA-C [address] [place] [address] 05/16/2025 8:00 AM EDT Office Visit [facility] Eye [facility] 16 [place] [address] Edu Chaudhary, DO [address] [place] [address] Pending Results Name Type Priority [...] D LEVEL ONCE IN A LIFETIME-USE SMARTSET# [id number] Completed 01/17/2023, 04/05/2022, 04/28/2021, Additional history exists [...] Tami Rhed KEVIN LAB BLOOD RACHEL GLYNN [facility] Organization Address City/State/ZIP Co de Phone Number [facility] [address] [place] [address] * (ABNORMAL) DIFFERENTIAL, AUTOMATED (09/11/2024 [...] LAB BLOOD ORDE RENARD LAB[facility] [address] [place] [address] * (ABNORMAL) ANEMIA CBC (09/11/2024 [...] EDT Simi BROWN LAB BLOOD ORDE R[facility] Organization Address City/State/ZIP Co de Phone Number LABORATORY [facility] 100 [facility] [place] [address] documented in this encounter Visit Diagnoses Diagnosis [...] and were consensually agreed upon. Care Teams Charging Manipulator Relationship Specialty Start Date End Date Simi Hernandez CRNP 132 [facility] [place] [address] PCP - General Nurse Practitioner 10/05/22 documented as of this encounter
--- OUTSIDE RECORDS SUMMARY | 2024-09-14 12:20 | External Medical Summary | Summary of Care ---
Author Name Unknown Organization [facility] Address [address] [place] [address] Phone [phone] Care Team Providers Care Imager Name Role Phone David Simi Tami BROWN Primary Care Provider Reason for Visit * Reason Comments Outpatient Testing Encounter Details Date Type Department Care Team (Late st Contact Info) Description 09/12/2024 11:40 AM EDT Laboratory Laboratory, [facility] 132 [place] [id number] [facility] [address] [place] [address] Cellulitis of right leg Allergies No known [...] Debility 11/05/2022 Coronary artery disease invo lving [place] coronary artery of [place] heart without angina pectoris 11/05/2022 Medical home [...] mRNA, LNP-s, No Pre serve, 2-Dose Series ([employer]) 04/18/2022,11/12/2021,01/28/2021,01/14 PPD 06/05/2018 Pneumococcal Conjugate Vacc, 13 [...] No 08/30/2024 Does the household have a [facility] source of income? (Household - for [...] 09/26/2024 3:00 PM EDT Office Visit [facility] 132 [facility] [place] [address] Simi Hernandez CRNP 132 [facility] [place] [address] 10/09/2024 10:00 AM EST Office Visit [facility] Surgery [facility] [address] [place] [address] Hannah Nicoals MD 200 [facility] [place] [address] 10/11/2024 2:05 PM EST NeuroDiagnostic Study Neurophysiology [facility] [address] [facility] [place] [address] Silver Mcduffie DO 200 [facility] [place] [address] 10/23/2024 3:00 PM EST Office Visit [facility] [address] [facility] [place], [place] [address] Simi Hernandez CRNP [address] [place] [address] 10/24/2024 2:00 PM EST Cardiac Studies Cardiac Studies, [facility] [address] [place] [address] 10/24/2024 3:00 PM EST Office Visit Cardiology, [facility] 132 [facility] [place] [address] Camille Cuevas PA-C [address] [place] [address] 10/26/2024 11:00 AM EST Office Visit Dermatology, Kirstie Avina [address] [place] [address] [place] [address] Kymberly Duque PA-C [address] [place] [address] 11/23/2024 3:00 PM EST Office Visit [facility] [address] [place] [address] Simi Hernandez CRNP [address] [place] [address] 02/04/2025 11:20 AM EDT [facility] [address] [place] [address] Andrea Walker MD [address] [place] [address] 02/13/2025 1:30 PM EDT Office Visit Urology Kirstie Avina [address] [place] [address] [place] [address] Elba Morales PA-C [address] [place] [address] 05/16/2025 8:00 AM EDT Office Visit [address] [address] Edu Chaudhary, DO [address] [place] [address] Scheduled Procedures Name Priority Associated Diagnoses Date/Ti [...] D LEVEL ONCE IN A LIFETIME-USE SMARTSET# 36699 Completed 01/17/2023, 04/05/2022, 04/28/2021, Additional history exists [...] EDT Simi BROWN LAB BLOOD ORDE RENARD [facility] Organization Address City/State/ZIP Co de Phone Number [facility] [place] [address] [place] [phone] * (ABNORMAL) CBC (09/12/2024 11:36 AM EDT) WBC 13.81(H) 4.00 - 10.80 K/uL 09/12/2024 11:44 AM EDT [facility] [place] [facility]10 RBC 3.67 3.85 - 5.15 M/uL 09/12/2024 11:44 AM EDT [facility] [place] 57-10 HGB 10.2(L) 12.0 - 15.3 g/dL 09/12/2024 11:44 AM EDT [facility] [place] 57-10 HCT 31.9(L) 36.0 - 45.2 % 09/12/2024 11:44 AM EDT [facility] [place] 57-10 MCV 86.9 81.5 - 97.5 fL 09/12/2024 11:44 AM EDT [facility] [place] 57[facility]10 MCH 27.8 27.0 - 34.0 pg 09/12/2024 11:44 AM EDT [facility] [place] 57[facility]10 MCHC 32.0 32.0 - 36.0 g/dL 09/12/2024 11:44 AM EDT [facility] [place] 57[facility]10 RDW 21.0 11.5 - 15.5 % 09/12/2024 11:44 AM EDT [facility] [place] 57-10 PLT 263 140 - 400 K/uL 09/12/2024 11:44 AM EDT [facility] [place] 57-10 MPV 10.5 6.6 - 11.1 fL 09/12/2024 11:44 AM EDT [facility] [place] 57-10 Blood Venous blood specimen / Unknown Venipuncture / Unknown 09/12/2024 11:36 AM EDT 09/12/2024 11:36 AM EDT Simi BROWN LAB BLOOD ORDE [facility] Organization Address City/State/ZIP Co de Phone Number [facility] [place] [id number] [place] [phone] * (ABNORMAL) PROCALCITONIN (09/12/2024 11:36 AM EDT) [...] Simi BROWN LAB BLOOD CHRISTOPHE LUIS CARLOSLOLLY [facility] Organization Address City/State/ZIP Co de Phone Number [facility] [place] [address] documented in this encounter [...] and were consensually agreed upon. Care Teams Imager Relationship Specialty Start Date End Date Simi Hernandez CRNP [facility] [address] [place] [address] PCP - General Nurse Practitioner 10/05/22 documented as of this encounter
--- OUTSIDE RECORDS SUMMARY | 2024-09-14 12:20 | External Medical Summary ---
Author Name Unknown Address Unknown Organization K01:[facility] [place] [address] [place] [address] Laboratory Report Ordering Provider Test Date Status GATITO ANDREA 09/11/2024 09:48:00 Final Observation Date Value Abnormality Reference (Units ) Status Iron 09/11/2024 09:48:00 20 Below low normal 33-151 (ug/dL) Final Iron-binding capacity 09/11/2024 09:48:00 283 250-425 (ug/dL) Final Transferrin Sat % 09/11/2024 09:48:00 7 Below low normal 15-55 (%) Final Performing Location LABORATORY C - [address] [place] [address]
--- OUTSIDE RECORDS SUMMARY | 2024-09-14 12:20 | External Medical Summary ---
Author Name Unknown Address Unknown Organization K0G:LAB[facility]ATORY [facility] 57-10 - [address] [place] [address] Laboratory Report Ordering Provider Test Date Status GATITO ANDREA 09/12/2024 11:36:56 Final Observation Date Value Abnormality Reference (Units ) Status WBC, Total 09/12/2024 11:36:56 13.81 Above high normal 4 .00-10.80 (K/uL) Final RBC 09/12/2024 11:36:56 3.67 3.85-5.15 (M/uL) Final Hemoglobin 09/12/2024 11:36:56 10.2 Below low normal 12 .0-15.3 (g/dL) Final HCT 09/12/2024 11:36:56 31.9 Below low normal 36. 0-45.2 (%) Final MCV 09/12/2024 11:36:56 86.9 81.5-97.5 (fL) Final MCH 09/12/2024 11:36:56 27.8 27.0-34.0 (pg) Final MCHC 09/12/2024 11:36:56 32.0 32.0-36.0 (g/dL) Final RDW 09/12/2024 11:36:56 21.0 11.5-15.5 (%) Final Platelets 09/12/2024 11:36:56 263 140-400 (K /uL) Final MPV 09/12/2024 11:36:56 10.5 6.6-11.1 ( fL) Final Performing Location [facility] 0 - [address] [place] [address]
--- OUTSIDE RECORDS SUMMARY | 2024-09-14 12:20 | External Medical Summary | Summary of Care ---
Author Name Unknown Organization [facility] Address [address] [place] [address] Phone [phone] Care Team Providers Care Pulmonary Disease Specialist Name Role Phone Simi Hernandez Primary Care Provider Reason for Referral * Evaluate & Treat - Unlimited Visits (Within 30 days (routine)) - Authorized Specialty Diagnoses / Procedures Referred By Kenya soliz Referred To Contact Wound Care Diagnoses Cellulitis of right lower extremity Chronic osteomyelitis of fibula (HCC) Simi Hernandez CRNP [address] [place] [address] Referral ID Status Reason Start Date Expiration Date Visits Requested Visits Authorized [id number] Authorized Specialty Services Required 4 [phone] [...] 09/11/2024 9:00 AM EDT Office Visit Family [facility] [address] [place] [address] Simi Hernandez CRNP [address] [place] [address] Cellulitis of right lower extremity*; Chronic wound; [...] Debility 11/05/2022 Coronary artery disease invo lving [place] coronary artery of [place] heart without angina pectoris 11/05/2022 Medical home patient encounter 09/30/2022 S/P shoulder replacement, right 09/07/2022 ESBL E. coli carrier 09/07/2022 Presence of intrathecal baclofen pump 09/07/2022 History of OK (myocardial infarction) 05/12/2022 Mass of chest wall, [...] mRNA, LNP-s, No Pre serve, 2-Dose Series ([employer]) 04/18/2022,11/12/2021,01/28/2021,01/14 PPD 06/05/2018 Pneumococcal Conjugate Vacc, 13 [...] Stability Do you currently live in a fci or have no steady place to sleep [...] BONE performed by Andrea Stanford MD at [facility] BONE DEBRIDEMENT, FIRST 20 CM2 Right 05/12/2023 R lateral ankle osteomyelitis-Andrea Velasco DPRadha CARDIAC CATH-CARDIOLOGY ONLY 07/06/2021 [facility] COLONOSCOPY, DIAGNOSTIC (RECTUM) polyp removed not retrieved / INPT [facility] COLONOSCOPY, DIAGNOSTIC (RECTUM) 01/26/2018 poor prep, repeat / INPT [facility] COLONOSCOPY, DIAGNOSTIC (RECTUM) N/A 11/04/2022 poor prep/non-bleeding internal hemorrhoids/recall 3 months/Colonoscopy/[place] COLONOSCOPY, DIAGNOSTIC (RECTUM) 05/05/2023 normal, repeat 5 yrs / COLONOSCOPY FLEXIBLE PROXIMAL DIAGNOSTIC performed by Blanche Chi DO at ENDOSCOPY [facility] CYSTOURETHROSCOPY, INJ FOR CHEMODENERVATION 03/29/2014 CYSTOURETHROSCOPY, INJ FOR CHEMODENERVATION performed by Hannah Milner MD at OR [facility] CYSTOURETHROSCOPY, INJ FOR CHEMODENERVATION 05/22/2015 EGD, FLEXIBLE, DIAGNOSTIC 01/25/2018 normal bx/[facility] EGD, FLEXIBLE, DIAGNOSTIC 04/30/2020 reflux esophagitis, gastric ulcer, repeat 2 mo / [facility] EGD, FLEXIBLE, DIAGNOSTIC 06/18/2020 gastric diverticulum, gastric irritation & ulceration, repeat 3-6 mo / [facility] EGD, FLEXIBLE, DIAGNOSTIC 03/19/2021 erosive gastritis, hiatal hernia / [facility] EGD, FLEXIBLE, DIAGNOSTIC 02/19/2022 erosive gastritis, hiatal hernia / [facility] EGD, FLEXIBLE, DIAGNOSTIC N/A 11/04/2022 large hiatal hernia/gastric diverticulum/EGD/[facility] TOOTH REMOV PART BONY (2) upper wisdom teeth removed IMPLANT/REPLACE SPINE INFUSION PUMP 07/2022 [facility] MASTECTOMY, MODIFIED RADICAL 09/2001 left breast- Dr. Ibrahim PAIN MANAGEMENT CATH 03/13/2009 Med[employer]onic Baclofen pump- Dr. Shabazz- [facility] PARTIAL HIP REPLACEMENT & PROSTH left PARTIAL HYSTERECTOMY approx 1991 Ovaries remain in RECONSTRUCT/REPLACE SHOULDER JOINT Right 05/25/2022 Reverse total shoulder--Thad REMOVAL OF APPENDIX 06/25/[address] Johnson [facility] 06/25/2009 REPAIR THIGH FRACTURE, W/IMPLANT 10/2006 Hip ORIF- left hip Dr. Morales REVERSE TOTAL SHOULDER ARTHROPLASTY Right 05/25/2022 Dr. Oneil [facility] SACROILIAC JOINT INJECT W/GUIDANCE 08/17/2018 INJECTION SACROILIAC JOINT performed by Ulises Tran, DO at OR [facility] SACROILIAC JOINT INJECT W/GUIDANCE 10/09/2018 INJECTION SACROILIAC JOINT performed by Ulises Tran, DO at OR [facility] SACROILIAC JOINT INJECT W/GUIDANCE 02/01/2019 INJECTION SACROILIAC JOINT performed by Ulises Tran, DO at OR [facility] Current Outpatient Medications Medication Sig Dispense [...] COVID-19 mRNA, LNP-s, No Preserve, 2-Dose Series ([employer]) 04/18/2022 Denosumab 01/03/2019 PPD 06/05/2018 Pneumococcal Conjugate [...] of separately billed services. Kirstin, MSN, KEVIN [facility] Medicine documented in this encounter Plan of Treatment Upcoming Encounters Date Type Department Care Team (Late st Contact Info) Description 09/26/2024 3:00 PM EDT Office Visit [facility] [address] [place] [address] Simi Hernandez CRNP 132 [place] [address] 10/09/2024 10:00 AM EST Office Visit [facility] [address] [place] [address] Hannah [facility] MD [facility] [address] 10/11/2024 2:05 PM EST NeuroDiagnostic Study Neurophysiology [facility] [address] [place] [address] Silver Mcduffie, DO [address] [facility] [address] 10/23/2024 3:00 PM EST Office Visit [facility] [address] [place] [address] Simi Hernandez CRNP 132 [place] [address] 10/24/2024 2:00 PM EST Cardiac Studies Cardiac Studies, [facility] 132 [place] [address] 10/24/2024 3:00 PM EST Office Visit Cardiology, [facility] [address] [place] [address] Camille Cuevas PA-C [address] [place] [address] 10/26/2024 11:00 AM EST Office Visit Dermatology, Kirstie Avina [address] [place] [address] [place] [address] Kymberly Duque PA-C [address] [place] [address] 11/23/2024 3:00 PM EST Office Visit [facility] [address] [facility] [place] [address] Simi Hernandez CRNP [address] [place] [address] 02/04/2025 11:20 AM EDT Office Visit Neurology [facility] [address] [place] [address] Andrea Walker MD [address] [place] [address] 02/13/2025 1:30 PM EDT Office Visit Urology Cl Avinan [address] [place] [address] [place] [address] Elba Morales PA-C [address] [place] [address] 05/16/2025 8:00 AM EDT Office Visit [address] [id number] Edu Chaudhary, DO [address] [facility] [place] [id number] Pending Results Name Type Priority Associated Diagnoses Date /Time CBC WITH WBC DIFFERENTIAL AND ANEMIA REFLEX WORKUP Lab Routine Cellulitis of right lower extremity 09/11/2024 8:58 AM EDT ANEMIA CBC Lab Routine Cellulitis of right lower extremity 09/11/2024 8:58 AM EDT DIFFERENTIAL, AUTOMATED Lab Routine Cellulitis [...] D LEVEL ONCE IN A LIFETIME-USE SMARTSET# [id number] Completed 01/17/2023, 04/05/2022, 04/28/2021, Additional history exists [...] and were consensually agreed upon. Care Teams Pulmonary Disease Specialist Relationship Specialty Start Date End Date Simi Hernandez CRNP 132 [place] [address] PCP - General Nurse Practitioner 10/05/22 documented as of this encounter
--- OUTSIDE RECORDS SUMMARY | 2024-09-14 12:21 | External Medical Summary | Summary of Care ---
Author Name Unknown Organization [facility] Address [address] [place] [address] Phone [phone] Care Team Providers Care Sanitizer Name Role Phone Simi Hernandez Primary Care Provider Reason for Visit * Reason Onset Date Comments Referral 08/31/2024 Encounter Details Date Type Department Care Team (Late st Contact Info) Description 08/31/2024 Telephone Family Practice [facility] 132 [facility] [place] [address] Simi Hernandez CRNP 132 [facility] [place] [address] Referral Allergies No known active allergiesdocumented as of this encounter (statuses as of 08/31/2024) Medications Medication Sig Dispensed Refills Start Date [...] once daily 90 Tablet 1 06/08/2024 Active Penicillin V Potassium 500 MG Oral Tablet (Veetids) Take 1 Tablet by mouth in the morning and 1 Tablet at noon and 1 Tablet in the evening and 1 Tablet before bedtime. 06/07/2024 Active Atorvastatin Calcium 40 MG Oral Tablet [...] EVERY OTHER DAY 45 Capsule 07/31/2024 Active Cephalexin 500 MG Oral Capsule (Keflex) Take 1 Capsule by mouth in the morning and 1 Capsule at noon and 1 Capsule in the evening and 1 Capsule before bedtime. Active Doxycycline Monohydrate 100 MG Oral Tablet Take 1 Tablet by mouth in the morning and 1 Tablet before bedtime. Active predniSONE 20 MG Oral Tablet (Deltasone) Take 1 Tablet by mouth daily for 5 days, THEN 0.5 Tablets daily for 5 days. 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 artery of [place] heart without angina pectoris 11/05/2022 Medical home [...] as of this encounter (statuses as of 08/31/2024) Resolved Problems Problem Noted Date Diagnosed Date [...] as of this encounter (statuses as of 08/31/2024) Immunizations Name Administration Dates Next Due COVID-19 [...] encounter Miscellaneous Notes * Telephone Encounter - Mana Zurita OSA - 08/31/2024 2:48 PM EDT LM for pt to call back and schedule EMG/MRI and PT documented in this encounter Plan of Treatment Upcoming Encounters Date Type Department Care Team (Late st Contact Info) Description 09/26/2024 3:00 PM EDT Office Visit Family Practice [facility] [address] [place] [address] Simi Hernandez CRNP [address] [place] [address] 10/09/2024 10:00 AM EST Office Visit [facility] Surgery [facility] [address] [place] [address] Hannah Nicolas MD [address] [place] [address] 10/11/2024 2:05 PM EST NeuroDiagnostic Study Neurophysiology [facility] [place] [address] Silver Mcduffie, [address] [place] [address] 10/23/2024 3:00 PM EST Office Visit [facility] [place] [address] Simi Hernandez CRNP 132 [facility] [place] [address] 10/24/2024 2:00 PM EST Cardiac Studies Cardiac Studies, [facility] [place] [address] 10/24/2024 3:00 PM EST Office Visit Cardiology, [facility] 132 [facility] [place] [address] Camille Cuevas PA-C 132 [facility] [place] [address] 10/26/2024 11:00 AM EST Office Visit Dermatology, Kirstie Avina [address] [place] [address] [place] [address] Kymberly Duque PA-C [address] [place] [address] 11/23/2024 3:00 PM EST Office Visit [facility] [place] [address] Simi Hernandez CRNP [address] [place] [address] 02/04/2025 11:20 AM EDT Office Visit Neurology Chris Cartwright [place] [address] [facility] [place] [address] Andrea Walker MD [address] [place] [address] 02/13/2025 1:30 PM EDT Office Visit Urology Kirstie Avina [address] [place] [address] [place] [address] Elba Morales PA-C [address] [place] [address] 05/16/2025 8:00 AM EDT Office Visit [address] [address] Edu Chaudhary, DO [address] [place] [address] Scheduled Procedures Name Priority Associated Diagnoses Date/Ti [...] D LEVEL ONCE IN A LIFETIME-USE SMARTSET# [id number] Completed 01/17/2023, 04/05/2022, 04/28/2021, Additional history exists [...] and were consensually agreed upon. Care Teams Sanitizer Relationship Specialty Start Date End Date Simi Hernandez CRNP 132 [place] [address] PCP - General Nurse Practitioner 10/05/22 documented as of this encounter
--- OUTSIDE RECORDS SUMMARY | 2024-09-14 12:21 | External Medical Summary | Summary of Care ---
Author Name Unknown Organization [facility] Address [address] [place] [address] Phone [phone] Care Team Providers Care Electric Accounting Machine Operator Name Role Phone Simi Hernandez Primary Care Provider Reason for Referral * Precert (Within 10 days (routine)) - Authorized Specialty Diagnoses / Procedures Referred By Contac t Referred To Contact Radiology Diagnoses Right foot drop Degeneration of intervertebral disc of lumbar region, unspecified whether pain present Procedures MRI L SPINE WO CONTRAST Simi Hernandez CRNP [address] [place] [address] Referral ID Status Reason Start Date Expiration Date V isits Requested Visits Authorized [id number] Authorized 08/30/2024 999 999 * Evaluate & Treat - Unlimited Visits (Within 30 days (routine)) - Authorized Specialty Diagnoses / Procedures Referred By Contac t Referred To Contact Physical Therapy / Physical Medicine And Rehab Diagnoses Right foot drop Simi Hernandez CRNP [address] [place] [address] Referral ID Status Reason Start Date Expiration Date Visits Requested Visits Authorized [id number] Authorized Specialty Services Required 08/30/2024 999 999 Question Answer Referral Priority Within 30 days (routine) Where should this appointment be scheduled? [facility] Reason for Visit * Reason Comments Emergency Department Follow-Up RIGHT JULIO C T CONCERN,.. CANNOT SEEM TO MOVE IT VERY WELL ANYMORE. Encounter Details Date Type Department Care Team (Latest Contact Info) Description 08/30/2024 3:40 PM EDT Office Visit Family [facility] [address] [place] [address] Simi Hernandez CRNP [address] [place] [address] Right foot drop*; Chronic osteomyelitis of fibula (HCC); Chronic deep vein thrombosis (DVT) of left peroneal vein (HCC); Degeneration of intervertebral disc of lumbar region, unspecified whether pain present; Coronary artery disease involving inaja coronary artery of inaja heart without angina pectoris; HTN, goal below 140/90; Multiple sclerosis (HCC) Allergies No known active allergiesdocumented as of [...] daily for 5 days. 8 Tablet 08/30/2024 4 Active documented as of this encounter (statuses [...] Debility 11/05/2022 Coronary artery disease invo lving inaja coronary artery of inaja heart without angina pectoris 11/05/2022 Medical home [...] deficiency anemia 08/13/202012/28 Depression with anxiety 05/05/2020 08/ Sacroiliitis 12/19/2018 08/13/2019 Chronic ulcer of left [...] mRNA, LNP-s, No Pre serve, 2-Dose Series ([employer]) 04/18/2022,11/12/2021,01/28/2021,01/14 PPD 06/05/2018 Pneumococcal Conjugate Vacc, [...] Sign Reading Time Taken Comments Blood Pressure 110/60 08/30/2024 3:42 PM EDT Pulse 88 08/30/2024 3:42 PM EDT Temperature - - Respiratory Rate - - Oxygen Saturation - - Inhaled Oxygen Concentration - - Weight - - Height - - Body Mass Index - - documented in this encounter Progress Notes * Simi Hernandez CRNP - 08/30/2024 3:52 PM EDT Images from the original note were not included. Er Follow up Family Medicine Visit CC: Chief Complaint Patient presents with Emergency Department Follow-Up RIGHT FOOT CONCERN,.. CANNOT SEEM TO MOVE IT VERY WELL ANYMORE. History of Present Illness: Kandy Shelby is a 73 year old female presenting Started having difficulty moving foot suddenly last Tuesday. It is numb and tingling. There is low back pain. She had normal white cell count. Lactate was normal. Today legs appear her normal swelling and color change. No wounds other than of right ankle which does appear more red. Social History Socioeconomic History Marital status: Spouse name: Not on file Number of children: 3 Years of education: Not on file Highest education level: Not on file Occupational History Not on file Tobacco Use Smoking status: Former Current packs/day: 0.00 Average packs/day: 1 pack/day for 6.0 years (6.0 ttl pk-yrs) Types: Cigarettes Start date: 07/05/1974 Quit date: 07/05/1980 Years since quittin.1 Smokeless tobacco: Never Tobacco comments: quit about [...] of Health Financial Resource Strain: Low Risk (01/20/2024) Financial Resource Strain Do you have any trouble paying for your medications, or do you think you might in the future? (Adult - for ages 18 years and over): No Does your family have trouble paying for medicine? (Household - for ages 0-17 years): Not on file Food Insecurity: No Food Insecurity (01/20/2024) Food Insecurity Do you need food for [...] on file Transportation Needs: No Transportation Needs (01/20/2024) Transportation Needs Do you have trouble getting [...] - for ages 18 years and over): Not on file Do you (or your family) have trouble finding or paying for a ride (transportation)? (Household - for ages 0-17 years): Not on file Social Connections: Socially Integrated (01/20/2024) Social Connections How often do you feel lonely or isolated from those around you? (Adult - for ages 18 years and over): Never Housing Stability: Low Risk (01/20/2024) Housing Stability Do you currently live in [...] - for ages 18 years and over): Not on file Are you (or your family) homeless or [...] performed by Andrea Stanford MD at OR [facility] BONE DEBRIDEMENT, FIRST 20 CM2 Right 05/12/2023 R lateral ankle osteomyelitis-Andrea Velasco DPRadha CARDIAC CATH-CARDIOLOGY ONLY 07/06/2021 [facility] COLONOSCOPY, DIAGNOSTIC (RECTUM) polyp removed not retrieved / INPT [facility] COLONOSCOPY, DIAGNOSTIC (RECTUM) 01/26/2018 poor prep, repeat / INPT [facility] COLONOSCOPY, DIAGNOSTIC (RECTUM) N/A 11/04/2022 poor prep/non-bleeding internal hemorrhoids/recall 3 months/Col[place]oscopy/[place] COLONOSCOPY, DIAGNOSTIC (RECTUM) 05/05/2023 normal, repeat 5 yrs / COLONOSCOPY FLEXIBLE PROXIMAL DIAGNOSTIC performed by Blanche Chi, DO at [facility] CYSTOURETHROSCOPY, INJ FOR CHEMODENERVATION 03/29/2014 CYSTOURETHROSCOPY, INJ FOR CHEMODENERVATION performed by Hannah Milner MD at [facility] CYSTOURETHROSCOPY, INJ FOR CHEMODENERVATION 05/22/2015 EGD, FLEXIBLE, DIAGNOSTIC 01/25/2018 normal bx/[facility] EGD, FLEXIBLE, DIAGNOSTIC 04/30/2020 reflux esophagitis, gastric ulcer, repeat 2 mo / [facility] EGD, FLEXIBLE, DIAGNOSTIC 06/18/2020 gastric diverticulum, gastric irritation & ulceration, repeat 3-6 mo / [facility] EGD, FLEXIBLE, DIAGNOSTIC 03/19/2021 erosive gastritis, hiatal hernia / [facility] EGD, FLEXIBLE, DIAGNOSTIC 02/19/2022 erosive gastritis, hiatal hernia / [facility] EGD, FLEXIBLE, DIAGNOSTIC N/A 11/04/2022 large hiatal hernia/gastric diverticulum/EGD/[facility] TOOTH REMOV PART BONY (2) upper wisdom teeth removed IMPLANT/REPLACE SPINE INFUSION PUMP 07/2022 [facility] MASTECTOMY, MODIFIED RADICAL 09/2001 left breast- Dr. Ibrahim PAIN MANAGEMENT CATH 03/13/2009 [employer] Baclofen pump- Dr. Shabazz- [facility] PARTIAL HIP REPLACEMENT & PROSTH left PARTIAL HYSTERECTOMY approx 1991 Ovaries remain in RECONSTRUCT/REPLACE SHOULDER JOINT Right 05/25/2022 Reverse total shoulder--Thad REMOVAL OF APPENDIX 06/25/[address] Johnson [facility] 06/25/2009 REPAIR THIGH FRACTURE, W/IMPLANT 10/2006 Hip ORIF- left hip Dr. Morales REVERSE TOTAL SHOULDER ARTHROPLASTY Right 05/25/2022 Dr. Oneil [facility] SACROILIAC JOINT INJECT W/GUIDANCE 08/17/2018 INJECTION SACROILIAC JOINT performed by Ulises Tran DO at [facility] SACROILIAC JOINT INJECT W/GUIDANCE 10/09/2018 INJECTION SACROILIAC JOINT performed by Ulises Tran DO at [facility] SACROILIAC JOINT INJECT W/GUIDANCE 02/01/2019 INJECTION SACROILIAC JOINT performed by Ulises Tran DO at [facility] Current Outpatient Medications Medication Sig [...] COVID-19 mRNA, LNP-s, No Preserve, 2-Dose Series ([employer]) 04/18/2022 Denosumab 01/03/2019 PPD 06/05/2018 Pneumococcal Conjugate [...] Review of Systems: Review of Systems Constitutional: Negative for chills, diaphoresis, fatigue and fever. Respiratory: Negative for shortness of breath. Cardiovascular: Negative for chest pain. Gastrointestinal: Negative for abdominal pain and diarrhea. Neurological: Positive for weakness and numbness. Physical Exam: BP 110/60 | Pulse 88 Physical Exam Constitutional: Comments: Seated in wheelchair HENT: Head: Normocephalic. Cardiovascular: Rate and Rhythm: Normal rate and regular rhythm. Comments: Edema at baseline Chronic violaceous changes unchanged No erythema or drainage Pulmonary: Effort: Pulmonary effort is normal. Breath sounds: Normal breath sounds. Musculoskeletal: Right lower le+ Edema present. Left lower le+ Edema present. Right foot: Decreased range of motion. Foot drop present. Feet: Feet: Comments: Callus Mild erythema around callus Neurological: General: No focal deficit present. Mental Status: She is alert and oriented to person, place, and time. Psychiatric: Mood and Affect: Mood is depressed. Affect is tearful. Behavior: Behavior normal. Thought Content: Thought content normal. Judgment: Judgment normal. Assessment and Plan: 1. Right foot drop Started last week S/o vascular work up and reassuring No evidence of infection Check EMG Add increased steroid x 10 days ? Lumbar etiology. - PHYSICAL THERAPY REFERRAL OP FOR POSSIBLE BRACING - MRI L SPINE WO CONTRAST; Future 2. Chronic osteomyelitis of fibula (HCC) Slight erythema around right ankle wound today Mild tenderness Finish keflex and docycycline(no cellulitis that I can see) 3. Chronic deep vein thrombosis (DVT) of left peroneal vein (HCC) Noted on ultrasound in ED Smaller in size compared to previous U/s Continue eliquis 4. Degeneration of intervertebral disc of lumbar region, unspecified whether pain present SUSPECTED CAUSE FOR FOOT DROP - MRI L SPINE WO CONTRAST; Future 5. Coronary artery disease involving inaja coronary artery of inaja heart without angina pectoris No anginal symptoms 6. HTN, goal below 140/90 stable 7. Multiple sclerosis (HCC) Ongoing debility I have advised the patient to call our office incase of any worsening or new symptoms. I spent a total of 40-54 minutes (exact time 50 mins) on the date of service in preparation, delivery, and documentation of the care provided to Kandy Shelby excluding any time spent in the performance of separately billed services. Kirstin, MSN, KEVIN [facility] Medicine documented in this encounter Plan of Treatment Upcoming Encounters Date Type Department Care Team (Late st Contact Info) Description 09/26/2024 3:00 PM EDT Office Visit Family Practice [facility] [address] [facility] [address] [place] [address] Simi Hernandez CRNP [address] [facility] [place] [address] 10/09/2024 10:00 AM EST Office Visit [facility] Surgery [facility] [address] [place] [address] Hannah Nicolas MD [address] [place] [address] 10/11/2024 2:05 PM EST NeuroDiagnostic Study Neurophysiology [facility] [address] [facility] [address] [facility] [place] [address] Silver Mcduffie, DO [address] [place] [address] 10/23/2024 3:00 PM EST Office Visit [facility] [address] [place] [address] Simi Hernandez CRNP [address] [facility] [place] [address] 10/24/2024 2:00 PM EST Cardiac Studies Cardiac Studies, [facility] [address] [facility] [address] [facility] [place] [address] 10/24/2024 3:00 PM EST Office Visit Cardiology, [facility] [address] [place] [address] Camille Cuevas PA-C [address] [facility] [place] [address] 10/26/2024 11:00 AM EST Office Visit Dermatology, Kirstie Avina [address] [place] [address] Kymberly Duque PA-C [address] [place] [address] 11/23/2024 3:00 PM EST Office [facility] [place] [address] Simi Hernandez CRNP [address] [place] [address] 02/04/2025 11:20 AM EDT Office Visit Neurology [facility] [address] [place] [address] Andrea Walker MD [address] [place] [address] 02/13/2025 1:30 PM EDT Office Visit Urology Kirstie Avina [address] [place] [address] Elba Morales PA-C [address] [place] [address] 05/16/2025 8:00 AM EDT Office Visit [address] [address] Edu Chaudhary, DO [address] [place] [address] Scheduled Orders Name Type Priority Associated Diagnoses Orde r Schedule MRI L SPINE WO CONTRAST Medical Imaging Routine Right foot drop Degeneration of intervertebral disc of lumbar region, unspecified whether pain present Expected: 08/30/2024, Expires: 09/30/2025 Scheduled Procedures Name Priority Associated Diagnoses Date/Ti md COLONOSCOPY FLEXIBLE PROXIMAL DIAGNOSTIC Recall Screen for colon cancer Scheduled Referrals Name Type Priority Associated Diagnoses Orde r Schedule PHYSICAL THERAPY REFERRAL OP Referral Within 30 days (routine) Right foot drop Ordered: 08/30/2024 Health Maintenance Due Date Last Done Comments [...] D LEVEL ONCE IN A LIFETIME-USE SMARTSET# [id number] Completed 01/17/2023, 04/05/2022, 04/28/2021, Additional history exists [...] as of this encounter Visit Diagnoses Diagnosis Right foot drop- Primary Other acquired deformity of ankle and foot Chronic osteomyelitis of fibula (HCC) Chronic deep vein thrombosis (DVT) of left peroneal vein (HCC) Degeneration of intervertebral disc of lumbar region, unspecified whether pain present Coronary artery disease involving inaja coronary artery of inaja heart without angina pectoris HTN, goal below 140/90 Unspecified essential hypertension Multiple sclerosis (HCC) Multiple sclerosis documented in this encounter Advance Directives * [...] and were consensually agreed upon. Care Teams Electric Accounting Machine Operator Relationship Specialty Start Date End Date Simi Hernandez CRNP [address] [place] [address] PCP - General Nurse Practitioner 10/05/22 documented as of this encounter"
--- OUTSIDE RECORDS SUMMARY | 2024-09-14 12:21 | External Medical Summary | Summary of Care ---
Author Name Unknown Organization [facility] Address [address] [place] [address] Phone [phone] Care Team Providers Care Development Advisor Name Role Phone Simi Hernandez Primary Care Provider Encounter Details Date Type Department Care Team (Late st Contact Info) Description 08/23/2024 Telephone Family Practice [facility] [address] [facility] [place] [address] Simi Hernandez CRNP [address] [facility] [place] [address] Allergies No known active allergiesdocumented as of this encounter (statuses as of 08/30/2024) Medications Medication Sig Dispensed Refills Start Date [...] as of this encounter (statuses as of 08/30/2024) Active Problems Problem Noted Date Diagnosed Date Ischemic optic neuropathy of both eyes Wound [...] of intrathecal baclofen pump 09/07/2022 History of [place] (myocardial infarction) 05/12/2022 Mass of chest wall, [...] as of this encounter (statuses as of 08/30/2024) Resolved Problems Problem Noted Date Diagnosed Date [...] as of this encounter (statuses as of 08/30/2024) Immunizations Name Administration Dates Next Due COVID-19 mRNA, LNP-s, No Pre serve, 2-Dose Series ([employer]) 04/18/2022,11/12/2021,01/28/2021,01/14 PPD 06/05/2018 Pneumococcal Conjugate Vacc, 13 [...] money to get more. Never true 01/20/2024 Childcare Answer Date Recorded Do you feel overwhelmed with taking care of a child, family member or friend? No 01/20/2024 Does your family need help f inding childcare? (Household - for ages 0-17 years) Not on file 01/20/2024 Clothing Answer Date Recorded Have you been unable to get clothing when it was really needed? No 01/20/2024 Is your family able to get c lothes or diapers when needed? (Household - for ages 0-17 years) Not on file 01/20/2024 Personal Safety Answer Date Recorded Do you feel unsafe or have concerns for your saf ety? No 01/20/2024 Do you have concerns for you r family's safety? (Household - for ages 0-17 years) Not on file 01/20/2024 Utilities Answer Date Recorded Do you have trouble paying y our heating, water, or electric bill? No 01/20/2024 Is your family able to pay t he heat, water, or electric bill? (Household - for ages 0-17 years) Not on file 01/20/2024 Does your family have access to good internet? (Household - for ages 0-17 years) Not on file 01/20/2024 Employment Status Answer Date Recorded Are you unemployed or without regular income? No 01/20/2024 Does the household have a re gular source of income? (Household - for ages 0-17 years) Not on file 01/20/2024 Social Connections Answer Date Recorded How often do you feel lonely or isolated from th ose around you? Never 01/20/2024 Financial Resource Strain Answer Date R ecorded Do you have any trouble payi ng for your medications, or do you think you might in the future? No 01/20/2024 Does your family have troubl e paying for medicine? (Household - for ages 0-17 years) Not on file 01/20/2024 Transportation Needs Answer Date Record ed READ ONLY Do you have troubl e getting a ride to medical visits or work? Never True 01/20/2024 Does your family have a hard time getting a ride to doctors visits? (Household - for ages 0-17 years) Not on file 01/20/2024 Has lack of transportation k ept you from medical appointments, meetings, work, or from getting things needed for daily living? Check all that apply. (Adult - for ages 18 years and over) Not on file 01/20/2024 Do you (or your family) have trouble finding or paying for a ride (transportation)? (Household - for ages 0-17 years) Not on file 01/20/2024 Housing Stability Answer Date Recorded Do you currently live in a s helter or have no steady place to sleep at night? No 01/20/2024 READ ONLY Do you think you a re at risk of becoming homeless? No 01/20/2024 Does your family worry about paying for your home or becoming homeless? (Household - for ages 0-17 years) Not on file 0 01/20/2024 Are you homeless or worried that you might be in the future? (Adult - for ages 18 years and over) Not on file Are you (or your family) hugo eless or worried that you might be in the future? (Household - for ages 0-17 years) Not on file Food Insecurity Answer Date Recorded Do you need food for this week? No 01/20/2024 Are you able to get enough f ood for your family? (Household - for ages 0-17 years) Not on file 01/20/2024 Does your family need food t his week? (Household - for ages 0-17 years) Not on file 01/20/2024 Do you always have enough fo od for your family? (Household - for ages 0-17 years) Not on file 01/20/2024 Sex and Gender Information Value Date Recorded Sex Assigned at Female 02/07/2020 1:52 PM EDT Gender Identity Female 02/07/2020 1:52 PM EDT Sexual Orientation Straight 02/07/2020 1: 52 PM EDT Job Start Date Occupation Industry Not on file Not on file Not on file documented as of this encounter Miscellaneous Notes * Telephone Encounter - Hannah Abernathy LPN - 08/30/2024 9:43 AM EDT Pt coming in today. * Telephone Encounter - Herminia Munroe LPN - 08/28/2024 10:16 AM EDT Attempted to call patient, there was no answer, left voicemail. When patient returns call, ok for MAAME to relay message, please refer to below documentation. If needed, can transfer to dedicated nurse line. * Telephone Encounter - Patsy Bradford MED ASSIST - 08/24/2024 10:06 AM EDT Unable to reach, left message to return call. * Telephone Encounter - Simi Hernandez CRNP - 08/23/2024 4:36 PM EDT Please notify patient Anemia improved, no signs of infection. Kidneys and electrolytes normal. Kirstin, MSN, KEVIN [facility] Medicine documented in this encounter Plan of Treatment Upcoming Encounters Date Type Department Care Team (Late st Contact Info) Description 08/30/2024 3:40 PM EDT Office Visit [facility] [address] [place] [address] Simi Hernandez CRNP [address] [place] [address] 09/26/2024 3:00 PM EDT Office Visit [facility] [address] [place] [address] Simi Hernandez CRNP [address] [facility] [place] [address] 10/09/2024 10:00 AM EST Office Visit [facility] [address] [place] [address] Hannah Nicolas MD [address] [place] [address] 10/23/2024 3:00 PM EST Office Visit [facility] [place] [address] Simi Hernandez CRNP [address] [place] [address] 10/24/2024 2:00 PM EST Cardiac Studies Cardiac Studies, [facility] [address] [facility] [place] [address] 10/24/2024 3:00 PM EST Office Visit Cardiology, [facility] [address] [facility] [place] [address] Camille Cuevas PA-C [address] [place] [address] 10/26/2024 11:00 AM EST Office Visit Dermatology, [place] [address] [place] [address] Kymberly Duque PA-C [address] [place] [address] 11/23/2024 3:00 PM EST Office Visit [facility] [address] [place] [address] Simi Hernandez CRNP [address] [place] [address] 02/04/2025 11:20 AM EDT Office Visit Neurology [facility] [address] [facility] [place] [address] Andrea Walker MD [address] [place] [address] 02/13/2025 1:30 PM EDT Office Visit Urology [place] [address] [place] [address] Elba Morales PA-C [address] [place] [address] 05/16/2025 8:00 AM EDT Office Visit [facility] [address] [facility] [place] [address] Edu Chaudhary, DO [address] [facility] [place] [address] Scheduled Procedures Name Priority Associated Diagnoses Date/Ti [...] 07/30/2020, 07/05/2011 Adult Wellness Visit 02/06/2021 02/07/2020 Depression Monitoring 02/10/2022 02/10/2021 Mammogram 04/15/2024 04/15/2023, 03/28, 12/17/2019, Additional history exists Influenza Vaccine (FLU shot) (#1) 2024 10/13/2023, 10/15/2022, 10/02/2021, Additional history exists GFR 08/22/2025 08/22/2024, 06/29, 06/26/2024, Additional history exists Colonoscopy 05/05/2028 05/05/2023, 06/2023, 11/04/2022, Additional history exists Colorectal Cancer Screening 05/05/2028 COVID-19 Vaccine Discontinued 06/04/2022, 06/2022, 04/18/2022, Additional history exists VITAMIN D LEVEL ONCE IN A LIFETIME-USE SMARTSET# [id number] Completed 01/17/2023, 04/05/2022, 04/28/2021, Additional history exists [...] and were consensually agreed upon. Care Teams Development Advisor Relationship Specialty Start Date End Date Simi Hernandez CRNP [address] [place] [address] PCP - General Nurse Practitioner 10/05/22 documented as of this encounter
--- OUTSIDE RECORDS SUMMARY | 2024-09-14 12:21 | External Medical Summary | Summary of Care ---
Author Name Unknown Organization [facility] Address [address] [place] [address] Phone [phone] Care Team Providers Care Car Salesman Name Role Phone Simi Hernandez Primary Care Provider Reason for Visit * Reason Onset Date Comments Referral 08/31/2024 Encounter Details Date Type Department Care Team (Late st Contact Info) Description 08/31/2024 Telephone Family Practice [facility] 132 [facility] [place] [address] Simi Hernandez CRNP 132 [facility] [place] [address] Referral Allergies No known active allergiesdocumented as of this encounter (statuses as of 09/03/2024) Medications Medication Sig Dispensed Refills Start Date [...] as of this encounter (statuses as of 09/03/2024) Active Problems Problem Noted Date Diagnosed Date [...] Coronary artery disease invo lving [place] coronary artery of [place] heart without angina pectoris 11/05/2022 Medical home patient encounter 09/30/2022 S/P shoulder replacement, right 09/07/2022 ESBL E. coli carrier 09/07/2022 Presence of intrathecal baclofen pump 09/07/2022 History of [place] (myocardial infarction) 05/12/2022 Mass of chest wall, [...] as of this encounter (statuses as of 09/03/2024) Resolved Problems Problem Noted Date Diagnosed Date [...] as of this encounter (statuses as of 09/03/2024) Immunizations Name Administration Dates Next Due COVID-19 [...] Telephone Encounter - Laverne Hinojosa OSA - 09/03/2024 2:04 PM EDT Pt aware and appts scheduled * Telephone Encounter - Laverne Hinojosa OSA - 09/03/2024 9:52 AM EDT Pt called back, [place] ([address]) in the pain clinic. MRI Ankle 11-8 @ 9:00am MRI L Spine 11-11 @ 1:15pm Pt had to go, she will call me back this afternoon for dates and to schedule the EMG * Telephone Encounter - Mana Zurita OSA - 08/31/2024 2:48 PM EDT LM for pt to call back and schedule EMG/MRI and PT documented in this encounter Plan of Treatment Upcoming Encounters Date Type Department Care Team (Late st Contact Info) Description 09/06/2024 3:25 PM EDT NeuroDiagnostic Study Neurophysiology [facility] 132 [place] [address] Silver Mcduffie, DO 200 [facility] [place] [address] 09/26/2024 3:00 PM EDT Office Visit [facility] 132 [place] [address] Simi Hernandez CRNP 132 [place] [address] 10/09/2024 10:00 AM EST Office Visit [facility] Surgery [facility] [address] [place] [address] Hannah Nicolas MD 200 [facility] [place] [address] 10/11/2024 2:05 PM EST NeuroDiagnostic Study Neurophysiology [facility] [place] 132 [place] [address] Silver Mcduffie, DO 200 [facility] [place] [address] 10/23/2024 3:00 PM EST Office Visit [facility] 132 [place] [address] Simi Hernandez CRNP 132 [place] [address] 10/24/2024 2:00 PM EST Cardiac Studies Cardiac Studies, [facility] 132 [facility] [place] [address] 10/24/2024 3:00 PM EST Office Visit Cardiology, [facility] 132 [place] [address] Camille Cuevas PA-C 132 [facility] [address] 10/26/2024 11:00 AM EST Office Visit Dermatology, [facility] [address] 140 [place] [address] Kymberly Duque PA-C [address] [place] [address] 11/23/2024 3:00 PM EST Office Visit Family Practice [facility] 132 [facility] [place], [place] [address] Simi Hernandez CRNP 132 [place] [address] 02/04/2025 11:20 AM EDT Office Visit Neurology [facility] 200 [facility] [place] [address] Andrea Walker MD 200 [facility] [place] [address] 02/13/2025 1:30 PM EDT Office Visit Urology [place] Cole[facility]irstie [address] 270 [place] [address] Elba Morales PA-C [address] [place] [address] 05/16/2025 8:00 AM EDT Office Visit [facility] [address] [place] [address] Edu Chaudhary DO [address] [place] [address] Scheduled Procedures Name Priority Associated Diagnoses Date/Ti [...] D LEVEL ONCE IN A LIFETIME-USE SMARTSET# [id number] Completed 01/17/2023, 04/05/2022, 04/28/2021, Additional history exists [...] and were consensually agreed upon. Care Teams Car Salesman Relationship Specialty Start Date End Date Simi Hernandez CRNP 132 [place] [address] PCP - General Nurse Practitioner 10/05/22 documented as of this encounter
--- OUTSIDE RECORDS SUMMARY | 2024-09-14 12:21 | External Medical Summary | Summary of Care ---
Author Name Unknown Organization [facility] Address [address] [place] [address] Phone [phone] Care Team Providers Care Dry House Worker Name Role Phone Simi Hernandez Primary Care Provider Reason for Visit * Reason Onset Date Comments Referral 08/31/2024 Encounter Details Date Type Department Care Team (Late st Contact Info) Description 08/31/2024 Telephone Family Practice [facility] 132 [facility] [place] [address] Simi Hernandez CRNP 132 [facility] [place] [address] Referral Allergies No known active allergiesdocumented as [...] back, she wants [place] done [place] ([address]) in the pain clinic. [...] Description 09/26/2024 3:00 PM EDT Office Visit [facility] [address] [place] [address] Simi Hernandez CRNP 132 [address] [place] [address] 10/09/2024 10:00 AM EST Office Visit [facility] Surgery [facility] [address] [place] [address] Hannah Nicolas MD [address] [facility] [address] 10/11/2024 2:05 PM EST NeuroDiagnostic Study Neurophysiology [facility] [place] [address] Silver Mcduffie, 200 [facility] [place] [address] 10/23/2024 3:00 PM EST Office Visit [facility] [address] [place] [address] Simi Hernandez CRNP [address] [place] [address] 10/24/2024 2:00 PM EST Cardiac Studies Cardiac Studies, [facility] [place] [address] 10/24/2024 3:00 PM EST Office Visit Cardiology, [facility] 132 [facility] [place] [address] Camille Cuevas PA-C [address] [place] [address] 10/26/2024 11:00 AM EST Office Visit Dermatology, Kirstie Avina [address] [place] 140 [place] [address] Kymberly Duque PA-C [address] [place] [address] 11/23/2024 3:00 PM EST Office Visit Family Practice [facility] 132 [address] [place] [address] Simi Hernandez CRNP [address] [place] [address] 02/04/2025 11:20 AM EDT Office Visit Neurology [facility] [address] [place] [address] Andrea Walker MD [address] [place] [address] 02/13/2025 1:30 PM EDT Office Visit Urology Kirstie Avina [address] [place] 270 [place] [address] Elba Morales PA-C 27 [address] [place] [address] 05/16/2025 8:00 AM EDT Office Visit [address] [address] Edu Chaudhary, DO [address] [place], [place] [address] Scheduled Procedures Name Priority Associated Diagnoses Date/Ti [...] D LEVEL ONCE IN A LIFETIME-USE SMARTSET# [id number] Completed 01/17/2023, 04/05/2022, 04/28/2021, Additional history exists [...] and were consensually agreed upon. Care Teams Dry House Worker Relationship Specialty Start Date End Date Simi Hernandez CRNP 132 [place] [address] PCP - General Nurse Practitioner 10/05/22 documented as of this encounter
--- OUTSIDE RECORDS SUMMARY | 2024-09-14 12:21 | External Medical Summary | Summary of Care ---
Author Name Unknown Organization [facility] Address [address] [place] [address] Phone [phone] Care Team Providers Care Manager Photography Name Role Phone Simi Hernandez Tami BRONW Primary Care Provider Reason for Visit * Reason Comments EMG Encounter Details Date Type Department Care Team (Late st Contact Info) Description 09/06/2024 3:25 PM EDT NeuroDiagnostic Study Neurophysiology [facility] 132 [facility] [place] [address] Silver Mcduffie, DO 200 [place] [address] Arrived Allergies No known active allergiesdocumented as of this encounter (statuses as of 09/06/2024) Medications Medication Sig Dispensed Refills Start Date [...] as of this encounter (statuses as of 09/06/2024) Active Problems Problem Noted Date Diagnosed Date [...] Debility 11/05/2022 Coronary artery disease invo lving [place] coronary artery of [place] heart without angina pectoris 11/05/2022 Medical home [...] as of this encounter (statuses as of 09/06/2024) Resolved Problems Problem Noted Date Diagnosed Date [...] as of this encounter (statuses as of 09/06/2024) Immunizations Name Administration Dates Next Due COVID-19 [...] as of this encounter Progress Notes * Silver Mcduffie DO - 09/06/2024 4:25 PM EDT [facility] Neurophysiology Laboratory Electromyography Report Name: Kandy Shelby Date of : 1950 (73 year old) Sex: female Tech: Krzysztof Cherry Referring Physician: Simi BROWN Examining Physician: Silver Mcduffie DO Examination Date: 09/06/2024 Ht Readings from Last 1 Encounters: 07/27/24 1.6 m (5' 2.99") Wt Readings from Last 1 Encounters: 05/29/24 61.4 kg (135 lb 6.4 oz) Impression: Abnormal study, although limited. This electrodiagnostic study shows evidence of a severe sensorimotor polyneuropathy. Comment: Study limited and technically difficult due to moderate to severe lower extremity edema. History and Physical examination: A 73 year old female with history of multiple sclerosis w ambulatory deficits. On examine she has edema in both feet with erythema. EMG/NCS performed for evaluation of neuropathy. Nerve Conduction Studies Examination Findings: Nerve conduction studies were performed in the right lower extremity and in select nerves in the left upper and lower extremities. The bilateral sural and radial sensory nerve responses were absent. The peroneal and tibial motor nerve responses were absent. Please see the attached document for raw data or the scanned document in [employer]. Reference values are from the [facility] normative data guidelines that are attached at the end ofthis document. Electromyography Examination Findings: Needle examination was performed with a disposable concentric needle electrode in selected muscles of the left lower extremity, as recorded in the tables. No abnormal spontaenous activity was seen. Tibialis anterior muscle demonstrated normal size and moderately reduced recruitment. The motor unit action potentials in the vastus medialis muscle demonstrated normal size, duration, and recruitment.Poor activation was seen in the medial gastrocnemius. Please see the attached document for raw data or the scanned document in EPIC. The study was done with a concentric needle examination. Silver Mcduffie DO documented in this encounter Plan of Treatment Upcoming Encounters Date Type Department Care Team (Late st Contact Info) Description 09/26/2024 3:00 PM EDT Office Visit Family Practice [facility] 132 [facility] [place] [address] Simi Hernandez CRNP 132 [facility] [place] [address] 10/09/2024 10:00 AM EST Office Visit [facility] Surgery [facility] [address] [place] [address] Hannah Nicolas MD 200 [facility] [place] [address] 10/11/2024 2:05 PM EST NeuroDiagnostic Study Neurophysiology [facility] 132 [facility] [place] [address] Silver Mcduffie DO [address] [facility] [address] 10/23/2024 3:00 PM EST Office Visit [facility] [address] [place] [address] Simi Hernandez CRNP [address] [place] [address] 10/24/2024 2:00 PM EST Cardiac Studies Cardiac Studies, [facility] [address] [place] [address] 10/24/2024 3:00 PM EST Office Visit Cardiology, [facility] 132 [facility] [place] [address] Camille Cuevas PA-C [address] [place] [address] 10/26/2024 11:00 AM EST Office Visit Dermatology, Kirstie Avina [address] [place] 140 [place] [address] Kymberly Duque PA-C 27 [place] [address] 11/23/2024 3:00 PM EST Office Visit [facility] [address] [place] [address] Simi Hernandez CRNP 132 [facility] [place] [address] 02/04/2025 11:20 AM EDT Office Visit Neurology [facility] [place] [address] [place] [address] Andrea Walker MD 200 [facility] [place] [address] 02/13/2025 1:30 PM EDT Office Visit Urology Kirstie Avina [address] [place] 270 [place] [address] Elba Morales PA-C [address] [place] [address] 05/16/2025 8:00 AM EDT Office Visit [address] [address] Edu Chaudhary, DO [address] [place] [address] Scheduled Procedures Name Priority Associated Diagnoses Date/Ti [...] D LEVEL ONCE IN A LIFETIME-USE SMARTSET# [id number] Completed 01/17/2023, 04/05/2022, 04/28/2021, Additional history exists [...] Procedure Name Priority Date/Time Associated Diagnosis Comments EMG Routine 09/06/2024 Right foot drop documented in this encounter Results * EMG (09/06/2024) Simi BROWN OTHER documented in this encounter Visit Diagnoses Diagnosis Right foot drop [M21.371]- Primary Other acquired deformity of ankle and foot documented in this encounter Advance Directives [...] were consensually agreed upon. Care Teams Manager Photography Relationship Specialty Start Date End Date Simi Hernandez CRNP 132 [place] [address] PCP - General Nurse Practitioner 10/05/22 documented as of this encounter
--- NOTE | 2024-09-14 12:27 | Communication Note ---
Date of Service: September 14, 2024 Pain service was informed that patient was to undergo MRI during her hospitalization. The patient does have indwelling intrathecal pump. Her current intrathecal pump is currently at minimal rate. There is no urgent reason to interrogate her pump immediately after the MRI due to her current minimal dose and the fact that her motor stall recovery will take likely greater than 10 hours. Patient may utilize tizanidine for any associated breakthrough spasm that may occur during this timeframe. Will plan to interrogate her pump on 08/2124 if the patient remains admitted. Please contact pain service with any questions or concerns. Markie Alcocer PA-C
--- OUTSIDE RECORDS SUMMARY | 2024-09-14 13:57 | External Medical Summary | Summary of Care ---
Author Name Unknown Organization [facility] Address [address] [place] [address] Phone [phone] Care Team Providers Care Manager Physical Name Role Phone Simi Hernandez Primary Care Provider Reason for Visit * Reason Onset Date Comments Test Results 09/12/2024 Encounter Details Date Type Department Care Team (Late st Contact Info) Description 09/12/2024 Telephone Family Practice [facility] 132 [facility] [place] [address] Simi Hernandez CRNP 132 [facility] [place] [address] Test Results Allergies No known active allergiesdocumented [...] Debility 11/05/2022 Coronary artery disease invo lving [place] coronary artery of [place] heart without angina pectoris 11/05/2022 Medical home [...] mRNA, LNP-s, No Pre serve, 2-Dose Series (Kast) 04/18/2022,11/12/2021,01/28/2021,01/14 PPD 06/05/2018 Pneumococcal Conjugate Vacc, 13 [...] 08/30/2024 Does the household have a re lar source of income? (Household - for ages [...] Miscellaneous Notes * Telephone Encounter - Simi Hernnadez CRNP - 09/13/2024 3:29 PM EDT Attempted to call patient- Both numbers straight to voicemail., Spoke to patient's daughter- patient doing well today. NO fevers. Tolerating antibiotics. Recommend have labs done tomorrow. Low thresh hold to go to ED. Patient's daughter agrees. Kirstin, ADELSO, KEVIN [facility] * Telephone Encounter - Patsy Bradford MED ASSIST - 09/12/2024 4:25 PM EDT Patient made aware * Telephone Encounter - Simi Hernandez CRNP - 09/12/2024 4:02 PM EDT PLEASE NOTIFY PATIENT WHITE CELL COUNT IS IMPROVED FORM YESTERDAY Anemia is trending downward slightly and this could be due to her infection. Recommend recheck of blood count in 2 days * Telephone Encounter - Patsy Bradford MED ASSIST - 09/12/2024 9:22 AM EDT Patient made aware -- she will have it checked after , she has another thing going on from -11. * Telephone Encounter - Simi Hernandez CRNP - 09/12/2024 8:34 AM EDT Please call patient- White count is high suggesting infection. Needs stat recheck today. If still high then will recommend eval at hospital. Kirstin, MSN, KEVIN [facility] Medicine documented in this encounter Plan of Treatment Upcoming Encounters Date Type Department Care Team (Late st Contact Info) Description 09/26/2024 3:00 PM EDT Office Visit Family Practice [facility] 132 [facility] [place] [address] Simi Hernandez CRNP 132 [facility] [place] [address] 10/09/2024 10:00 AM EST Office Visit [facility] Surgery [facility] [address] [place] [address] Hannah Nicolas MD 200 [facility] [address] 10/11/2024 2:05 PM EST NeuroDiagnostic Study Neurophysiology [facility] 132 [facility] [place] [address] Silver Mcduffie, [address] [place] [address] 10/23/2024 3:00 PM EST Office Visit Family Practice [facility] [address] [facility] [place] [address] Simi Hernandez CRNP 132 [facility] [place] [address] 10/24/2024 2:00 PM EST Cardiac Studies Cardiac Studies, [facility] 132 [facility] [place] [address] 10/24/2024 3:00 PM EST Office Visit Cardiology, [facility] 132 [facility] [place] [address] Camille Cuevas PA-C 132 [facility] [address] 10/26/2024 11:00 AM EST Office Visit Dermatology, Kirstie Avina [address] [place] [address] Kymberly Duque PABrianna [address] [place] [address] 11/23/2024 3:00 PM EST Office Visit Family Practice [facility] 132 [facility] [place] [address] Simi Hernandez CRNP 132 [facility] [place] [address] 02/04/2025 11:20 AM EDT Office Visit Neurology [facility] [place] [address] [place] [address] Andrea Walker MD [address] [place] [address] 02/13/2025 1:30 PM EDT Office Visit Urology Kirstie Avina [address] [place] [address] [place] [address] Elba Morales PA-C [address] [place] [address] 05/16/2025 8:00 AM EDT Office Visit [address] [address] Edu Chaudhary, DO [address] [place] [address] Scheduled Orders Name Type Priority Associated Diagnoses Orde r Schedule CBC WITH WBC DIFFERENTIAL Lab Routine Cellulitis of right leg Expected: 09/14/2024, Expires: 10/13/2025 Scheduled Procedures Name Priority Associated Diagnoses Date/Ti [...] D LEVEL ONCE IN A LIFETIME-USE SMARTSET# [id number] Completed 01/17/2023, 04/05/2022, 04/28/2021, Additional history exists [...] filedocumented as of this encounter Results * (ABNORMAL) PROCALCITONIN (09/12/2024 11:36 AM EDT) Procalcitonin 1.35(H) <0.10 ng/mL 09/12/2024 7:46 PM EDT LABORATORY [facility] Blood Venous blood specimen / Unknown Venipuncture [...] causes are known. Simi BROWN LAB BLOOD ORDE RENARD LABORATORY [facility] [address] [place] [address] documented in this encounter Visit Diagnoses Diagnosis Cellulitis of right leg- Primary Cellulitis and abscess of leg, except [...] were consensually agreed upon. Care Teams Manager Physical Relationship Specialty Start Date End Date Simi Hernandez CRNP 132 [place] [address] PCP - General Nurse Practitioner 10/05/22 documented as of this encounter
[2024-09-14] MEDS: GADOBUTROL 65ML VIAL IV ONE (14:14)
--- NOTE | 2024-09-14 14:46 | Magnetic Resonance Report ---
MR foot RT wo/w con CLINICAL HISTORY: swelling ro osteomyelitis TECHNIQUE: Multiplanar multisequence MR images of the right foot were obtained. Comparison: Comparison is made to CT foot 09/13/2024 FINDINGS: Bones: There is possible minimal bone edema at the tuft of the first digit distal phalanx. Tendons: Unremarkable Soft tissue: Soft tissue edema is seen without drainable fluid collection. IMPRESSION: Findings compatible with cellulitis and possible minimal first digit distal phalanx osteomyelitis. No evidence of abscess. ACT 112: Negative or not required by law. Electronically signed by: Morales Hanna M.D. 09/14/2024 2:44 PM
--- NOTE | 2024-09-14 14:53 | Magnetic Resonance Report ---
MR lower leg RT wo/w con CLINICAL HISTORY: swelling ro osteomyelitis COMPARISON STUDY: CT of the right tibia and fibula September 13, 2024. TECHNIQUE: Utilizing a 1.5 Ally magnet and dedicated coil, multiplanar, multi echo imaging of the ri ght lower leg/tibia and fibula was performed pre and postcontrast administration. Intravenous injecti on of 6 cc of Gadavist was uneventful. FINDINGS: Please note that the MRIs of the right foot and ankle will be reported separately. No marro w edema or marrow placement within the right tibia or fibula is identified. There is no MR evidence f or osteomyelitis. No osseous lesions are identified within the right tibia or fibula. There is modera te right lower leg subcutaneous fluid. No fluid collections are present. There is no MR evidence for soft tissue gas. No intramuscular fluid collection is present. Mild right lower leg muscular atrophy is present. IMPRESSION: 1. No evidence for osteomyelitis within the right tibia or fibula. 2. Right lower leg subcutaneous fluid which could reflect cellulitis or edema. No fluid collection to suggest abscess. ACT 112: Negative or not required by law. Electronically signed by: Scar Holden M.D. 09/14/2024 2:51 PM
--- NOTE | 2024-09-14 15:05 | Magnetic Resonance Report ---
MR ankle RT wo/w con HISTORY: 73 years-old Female swelling ro osteomyelitis acute pain and swelling of the right foot and ankle COMPARISON: Foot and lower leg MRI of same day TECHNIQUE: Multiplanar multisequence MRI of the right ankle was obtained with and without IV contrast FINDINGS: Motion degraded exam exam limits the study. Tendinosis of the peroneus longus and brevis tendons with probable inframalleolar split tears, suboptimally dilated. Mild tendinosis and tenosynovitis of the tibialis posterior. The extensor tendons appear intact. Moderate diffuse subcutaneous edema with enha ncement. No fluid collections. Trace tibiotalar and subtalar joint effusions with edema noted within the sinus Tarsi. There is mild multifocal osteoarthritis. No acute fracture, dislocation or osseous erosion. Enthesophytes of the ca lcaneus with mild marrow edema, likely degenerative weighted. No enhancing mass lesions. IMPRESSION: 1. Subcutaneous edema suggestive of cellulitis. Venous stasis or lymphedema could appear similarly. 2. No MR evidence of acute osteomyelitis. 3. No abscess. ACT 112: Negative or not required by law. The above report was generated using voice recognition software. It may contain grammatical, syntax o r spelling errors. Electronically signed by: Nasir Mccauley M.D. 09/14/2024 3:03 PM
[2024-09-14] MEDS: ADVANCED PROBIOTIC 625 MG CAPSULE PO SCH (15:30)
[2024-09-14] MEDS: FUROSEMIDE 20 MG TAB PO SCH (15:40)
[2024-09-14 16:08] LABS: ANTI-Xa, UFH(UnfractionatedHep 0.29 IU/ml (0.3-0.7)
[2024-09-14] MEDS: MELATONIN 3 MG TAB PO SCH (20:55)
[2024-09-14 23:27] LABS: ANTI-Xa, UFH(UnfractionatedHep 0.23 IU/ml (0.3-0.7)
[2024-09-15 07:30] LABS: Calcium 8.8 mg/dl (8.6-10.3); Creatinine Clr Calc Pharmacy 44.6 ml/min; Magnesium 1.7 mg/dl (1.7-2.4); Phosphorus 3.6 mg/dl (2.5-4.9); Potassium 3.9 mmol/L (3.5-5.1)
[2024-09-15 07:45] LABS: Hematocrit (blood only) 32.7 % (37.0-47.0); Hemoglobin 10.4 g/dl (12.0-16.0); Mean Corpuscular Hemoglobin 27.4 pg (25.0-34.0); Mean Corpuscular Hgb Conc 31.8 g/dL (32.0-36.0); Mean Corpuscular Volume 86.3 fL (80.0-100.0); Mean Platelet Volume 10.9 fL (9.4-12.4); Platelet Count 232 K/uL (130-400); Platelet Estimate Normal (Normal); RDW Coefficient of Variation 21.1 % (11.5-14.5); RDW Standard Deviation 66.5 fL (36.4-46.3); Red Blood Count 3.79 M/uL (4.20-5.40); White Blood Count 5.62 K/ul (4.8-10.8)
--- NOTE | 2024-09-15 09:51 | Orthopedic Consultation ---
Date of Service September 15, 2024 Assessment & Plan (1) Osteoarthritis of right knee: With regards to her right knee, she is not having any pain. The effusions caused from the arthritis. Without any pain, I do not want to give her an injection or do any further treatment with her knee. She can follow-up in my office as needed for further treatment of her right knee arthritis if it becomes painful in the future. (2) Cellulitis of right lower extremity: The cellulitis on her right leg is equivalent to the cellulitis on her left leg. She has a lot of erythema bilaterally. I do not appreciate any significant ulcerations on either lower extremity. I did not see any wounds or ulcerations around her right great toe. There is a little bit of edema in the distal phalanx of the right great toe on MRI but I do not think this is a surgical case at this point. I do not feel she needs an amputation and I do not feel surgery with her foot this erythematous is indicated. I would recommend continuing the antibiotic treatment. History of Present Illness Reason for Consultation: Osteoarthritis of the right knee and cellulitis bilateral lower extremities. Requesting Physician: . Attending Physician: Fernando Armenta MD Kandy is a pleasant 73-year-old female who is well-known to me. I treated her for osteoarthritis in our office. I do give her some injections in her knees when she needs them. Fortunately, she is not having a knee pain right now. She has a slight knee effusion but she is not having any pain. Her bigger issue is the cellulitis of her lower extremities. She has significant redness and erythema both lower extremities. She does have a history of a small lateral fibular ulceration on the right ankle. She has been admitted to the medical service. She is currently on cefepime and doxycycline for the cellulitis. Orthopedics was consulted to evaluate and treat. Allergies Allergy/AdvReac Type Severity Reaction Status Date / Time No Known Allergies Allergy Verified 08/28/24 12:57 Home Medications Medication Instructions Recorded Confirmed Type cholecalciferol (vitamin D3) 25 2,000 units PO QAM 09/18/18 09/13/24 History mcg (1,000 unit) capsule escitalopram oxalate 20 mg tablet 20 mg PO QAM 09/18/18 09/13/24 History (Lexapro) oxybutynin chloride 15 mg 15 mg PO QAM 09/18/18 09/13/24 History tablet,extended release 24 hr prednisone 10 mg tablet 10 mg PO QAM 09/18/18 09/13/24 History omeprazole 40 mg capsule,delayed 40 mg PO QAM 07/06/21 09/13/24 History release teriflunomide 14 mg tablet 14 mg PO QPM 05/13/22 09/13/24 History (Aubagio) doxycycline hyclate 50 mg capsule 50 mg PO Q2D Rosacea 08/10/22 09/13/24 History melatonin 3 mg tablet 3 mg PO HS 03/05/23 09/13/24 History multivitamin 1 tab PO DAILY 03/05/23 09/13/24 History Baclofen Pump 0 mg SC DIRECTED 08/05/23 09/13/24 History apixaban 5 mg tablet (Eliquis) 5 mg PO BID 02/03/24 09/13/24 History metoprolol succinate 25 mg 25 mg PO Q12 #60 tabs 04/19/24 09/13/24 Rx tablet,extended release 24 hr tizanidine 4 mg tablet (Zanaflex) 4 mg PO Q6 Muscle Spasm #120 tabs 07/19/24 09/13/24 Rx atorvastatin 40 mg tablet 40 mg PO QAM 09/13/24 09/13/24 History duloxetine 30 mg capsule,delayed 30 mg PO DAILY 09/13/24 09/14/24 History release sulfamethoxazole 800 1 tab PO BID 09/13/24 09/13/24 History mg-trimethoprim 160 mg tablet Past Med/Surg History Problem List Osteoarthritis of right knee Cellulitis of right lower extremity Anemia (Acute) Cellulitis (Acute) Acute leg pain (Acute) Osteoarthritis of knees, bilateral Knee pain (Acute) Septic prepatellar bursitis (Acute) Paroxysmal atrial fibrillation Wound infection CLABSI (central line-associated bloodstream infection) Bacteremia Fungemia Myocardial strain Tachycardia Rosacea Hypomagnesemia Diarrhea Acute deep vein thrombosis of left lower extremity (Chronic) Traumatic open wound of right lower leg (Acute) Catheter-associated urinary tract infection Sepsis (Acute) Leg wound, right (Acute) Skin tear of left upper extremity (Acute) Chronic refractory osteomyelitis of ankle (Acute) Surgical wound, non healing (Acute) Osteomyelitis of ankle (Acute) Sepsis (Acute) Cellulitis of left lower leg (Acute) Chronic ulcer of right foot (Acute) HX: breast cancer Left breast cancer with surgery and chemo/radiation-left arm restriction Chronic anemia Paroxysmal atrial fibrillation Lower extremity edema (Chronic) Traumatic open wound of left lower leg with delayed healing (Acute) Ulcer of right ankle (Acute) Paroxysmal atrial fibrillation with RVR Hypotension Acute UTI (Acute) UTI (urinary tract infection) (Acute) Status post reverse total replacement of right shoulder (~04/2022) Encounter for pre-operative examination Closed right scapular fracture Sepsis Hypertension Multiple sclerosis Elevated troponin (Acute) Sepsis (Acute) Elevated troponin I level (Acute) Hypotension (Acute) Elevated lactic acid level (Acute) GERD (gastroesophageal reflux disease) controlled, stable per pt CAD (coronary artery disease) Non-obstructive per 06/2021 cardiac cath History of supraventricular tachycardia History of pulmonary embolism ~ 6 yrs ago, IVC filter still in place History of DVT (deep vein thrombosis) ~6 yrs ago Multiple sclerosis (Chronic) Follows with Dr. Walker/[facility] Stable Osteoporosis (Chronic) Neurogenic bladder (Chronic) SELF CATH 2-3 X'S PER DAY *RECENT HOSPITALIZATION FOR UTI Raynaud disease (Chronic) Presence of intrathecal pump (Chronic) baclofen pump in place--status post revision/replacement 08/10/2022 S/P IVC filter (Chronic) H/O left mastectomy (Chronic) with lymph node removal>LEFT ARM RESTRICTION History of open reduction and internal fixation (ORIF) procedure (Chronic) "left hip" S/P partial hysterectomy (Chronic) History of appendectomy (Chronic) Medical History Fever History of recent hospitalization 09/2022 [facility] - sepsis History of blood transfusion Limb alert care status left arm Osteoarthritis of right shoulder History of GI bleed Upper GIB (2019) felt 2/2 NSAID use History of non-ST elevation myocardial infarction (NSTEMI) 06/2021 (had heart cath, no stents) Hx of gastric ulcer 02/2021 Anemia Hypertension controlled, stable per pt Surgical History History of removal of Port-a-Cath (02/09/24) Mediport Removal(Right) - Tristin A. Clifton, DO Port-A-Cath in place (09/29/23) A-Port Insertion, right internal jugular(Right) - Tristin Lazo DO S/p reverse total shoulder arthroplasty right: 05/25/22 LMA#4. No postop issues per anesthesia progress note. History of cardiac cath Cardiac cath (07/06/21; [facility]) > Right dominant coronary system. No evidence of aortic stenosis. Normal left ventricular filling pressures. Nonobstructive disease involving the ostial LAD. No evidence of acute coronary syndrome. Approximately 50% ostial stenosis of the LAD. There was some very mild disease at the ostium of the left circumflex. Recommendations: Medical management. History of esophagogastroduodenoscopy (EGD) History of colonoscopy History of tooth extraction Family History Mother Heart disorder Other No family history of adverse response to anesthesia Social History Smoking Status: Former smoker Tobacco Type: Cigarettes packs per day: 1; Cigarettes Per Day: stopped in 1977; Second Hand Exposure: No; Do You Dip or Chew Tobacco: No; Hx Alcohol Use: No Hx Substance Use: No Preferred Language: Indonesian Communication Ability: Effective Visual Impairment: Limited Hearing Ability: Use of Hearing Aid [employer] Supervisor Required: No Beliefs That Will Affect Care: None marital status: / Current Living Situation: Alone Current Living Situation Comment: daughters are an hour away but check on her frequently per pt current occupational status: retired How many Children do You have: 3 Other Information That Helps Us Care for You: No Feels Safe at Home: Yes Safety Concerns: Feels Safe At This Time Childhood Exposure to Second-Hand Smoke: Yes Diet: regular caffeine: Yes Assistive Devices: Walker and Wheelchair Assistive Devices Comment: reading glasses Review of Systems All systems reviewed & are unremarkable except as noted in HPI & below. Physical Exam On physical exam of the right knee, she does have a 1+ effusion. She has no pain. She no pain with range of motion. There is no signs of septic arthritis. On examination of her lower extremities, she has significant redness and erythema around both feet and ankles. Is pretty equal on both sides. I see a very minimal ulceration on the distal fibula of the right ankle. I do not see any other lacerations or ulcerations on her lower extremities.. Constitutional WD/WN, vitals as above Eyes PERRL, conjunctivae normal, anicteric sclerae ENMT external ear and nose normal, oropharynx normal Neck trachea midline, no thyromegaly Respiratory normal respiratory effort Cardiovascular RRR, no murmur, no edema Gastrointestinal (Abdomen) normal bowel sounds, soft, nontender, no hepatosplenomegaly Psychiatric A+Ox3, euthymic affect Results & Data Results & Data Laboratory Results . Diagnostic Findings X-rays of the right knee do show advanced osteoarthritis with joint space narrowing, osteophyte formation, and [id number] articulation. MRI of the right ankle shows signs of significant cellulitis but no signs of osteomyelitis or any bony abnormalities. MRI of the right foot shows a very small questionable area of osteomyelitis at the tip of the distal phalanx of the right great toe.. PG Care Time/CCT Total # of Minutes Spent Total Time Spent with Patient: Total time spent is greater than 50% in coordination of care (as documented) at patient's floor/unit and/or counseling patient: Coding Level of Care Code 51874 IN/OBS CONSULT LVL 4,60M Diagnoses Osteoarthritis of right knee M17.11 Cellulitis of right lower extremity L03.115
--- NOTE | 2024-09-15 10:44 | Hospitalist Progress Note ---
Date of Service September 15, 2024 Assessment & Plan (1) Cellulitis of right lower extremity: Plan Kandy Shelby is a 73y/o F with PMHx significant for CAD, HTN, HLD, PAF, PSVT, nonrheumatic aortic valve stenosis, Raynaud's syndrome, history ESBL E. coli UTI, prior DVT with pulmonary emboli s/p IVC filter placement [on Eliquis], GERD with esophagitis, protein-calorie malnutrition, neurogenic bladder, multiple sclerosis [on chronic prednisone + Aubagio], polyneuropathy with ch ronic pain on Baclofen pump, tobacco use, anemia of chronic disease [baseline Hgb ~9-10], depression with anxiety, sicca syndrome, history of nonmelanoma skin cancer s/p Mohs operation, left breast cancer s/p radiation + surgery, rosacea [on doxycycline], right foot drop, bilateral lower extremity venous stasis, chronic osteomyelitis of the right fibula, chronic right lateral ankle wound and recurrent right lower extremity cellulitis who presented to the ED on 09/13/2024 for evaluation of right lower extremity pain. Patient was previously admitted under our service back in January 2024 with se psis/bacteremia secondary to UTI and right lower extremity cellulitis + osteomyelitis. Blood cultures were positive for fungus and Group B strep/Enterococcus. She completed 2 weeks of IV ampicillin therapy and 2 weeks of oral fluconazole therapy. She was recently in the [facility] ED on 08/23/2024 and was prescribed a course of oral doxycycline + Keflex due to bilateral lower extremity cellulitis. Patient was most recently seen by her PCP on 09/11/2024 as her right lower extremity was seeping and became erythematous. This reportedly started to occur following an EMG she had done at the [facility] on 09/06/2024, which showed evidence of severe sensorimotor polyneuropathy. She was started on a 10-day course of Bactrim on 09/11/2024. Patient also saw Dr. Andrea Velasco at [facility] on 09/11/2024 where it was noted that she have a right ankle ulcer with serous drainage and surrounding erythema. A wound culture was taken at that visit. She was also then prescribed a course of Keflex to take in addition to the Bactrim. Bilateral lower extremity cellulitis admitted to med/surg --RLE VDS negative --RLE CT revealed severe osteoarthritis of the knee joint and moderate knee joint effusion --R foot CT without evidence of osteomyelitis however does show moderate subcutaneous edema consistent with cellulitis. --R foot MRI compatible with cellulitis and possible minimal first digit distal phalanx osteomyelitis, no evidence of abscess. --R ankle MRI with subcutaneous edema suggestive of cellulitis but no evidence of acute osteomyelitis nor abscess. --RLE MRI with no evidence of osteomyelitis within the tibia or fibula however does note subcutaneous fluid reflecting cellulitis or edema. Dr. Oneil consulted and reviewed images - no indication for surgery at this time, continue tx with IV antibiotics Consult ID for assistance with duration given concern for possible OM on MRI Transition antibiotic to IV Rocephin 2g daily and IV Daptomycin, probiotic, previous cultures grew MSSA and group B strep, no prior hx of mrsa noted check CK and place atorvastatin on hold Blood culture no grown to date Look into wound culture from [facility] as mentioned above. Wound nurse consulted for previous provider H/O DVT + Pulmonary Emboli: D/C IV heparin, resume eliquis CAD (nonobstructive)/PAF/HTN/Known aortic stenosis Patient follows with Camille Cuevas PA-C at [facility], [facility]. Echo: EF 70%, mild concentric LVH, mild valvular aortic stenosis Pt with +2 edema on admission, started on oral lasix, swelling improving, likely in setting of cellulitis, check BNP in a.m. 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 Andrea Walker at [facility], [facility]. Patient is on chronic prednisone therapy in addition to Aubagio daily consult PT/OT - pt with limited mobility, mostly self transfers from wheel chair, will encourage to continue to practice this to maintain her baseline level of function HLD: hold atorvastatin due to dapto, resume as able Chronic Back Pain: Patient with an indwelling intrathecal Baclofen pump in place [employer]ALITY ASSURANCE COORDINATOR. Has seen [place] [facility] for pump checks previously. Per pain management --> "There is no urgent reason to interrogate her pump immediately after the MRI due to her current minimal dose and the fact that her motor stall recovery will take likely greater than 10 hours. Patient may utilize tizanidine for any associated breakthrough spasm that may occur during this timeframe. Will plan to interrogate her pump on Tuesday09/17/24 if the patient remains admitted." Anemia of chronic disease: hgb stable, baseline 9-10 DVT Prophylaxis: Eliquis Code Status: FULL CODE PCP: KEVIN Lema Disposition: Admitted in Med/Surg, not yet medically stable for discharge, continue IV antibiotics, PT/OT consulted Patient daughter requesting daily updates from providers --> Alyssa Montalvo, . * Updated daughter Alyssa and she agrees with above I spent a total of 50 minutes coordinating, documenting, and providing care for this patient excluding time spent in the performance of separately billed services. This included personally reviewing all current laboratories and imaging studies, medical reconciliation, outpatient chart review and discussion with specialists. Admission and Anticipated Discharge Date Admission Date: September 13, 2024 Supervising Physician Co-Signing Physician Notes Reviewed the chart in detail. Discussed the case with the collaborating advanced practitioner. I agree with the documentation as above. I have reviewed and confirmed the patients medical history, thefindings on physical examination, and the patients diagnosis and treatment plan with Dottie Zayas PA-C and agree with the information documented. B/L lower extremity cellulitis--POA Leg edema: Likely venous stasis-improved Suspected right first digit distal phalanx osteomyelitis Right knee osteoarthritis likely causing effusion Venous Doppler showed no signs of DVT Right lower extremity arterial Doppler in July within normal limits with no focal stenosis Blood cultures : No growth to date Continue cefepime, doxycycline>> agree with transition to Dapto, Rocephin based on prior cultures and indications Appreciate orthopedics input Consulted ID for further recommendations Echo showed no signs of CHF Lasix as needed to help with volume Transition IV heparin to Eliquis as no plan for surgery Agree with holding statin while on daptomycin Subjective NAEO. Pt reports not getting enough food to eat. Culinary at bedside states HH diet limits her significantly. She reports with her MS she is mostly in a wheel chair and self transfers. She has been in bed since admission. She is requesting therapy. Denies f/c/s, chest pain, sob, n/v/d. Review of Systems Review of Systems: All systems reviewed & are unremarkable except as noted in HPI & below Physical Exam Physical Exam: Gen: WD/WN, F, NAD, A&O x3, masked facies HEENT: Normocephalic, atraumatic, conjunctivae moist, sclerae anicteric, mucous membranes moist. Lung: Clear to Auscultation bilaterally, no wheezes/rales/rhonchi Heart: Regular rate, regular rhythm, no murmurs, rubs, or gallops Abdomen: Soft, NT, ND +BS x 4 Extremities: trace edema, B/L Lower extremity cellulitis with erythema p retibially Skin: Warm, no rash, negative turgor. Results & Data Results & Data Vital Signs (Past 12 Hours) Vital Signs Temp Pulse BP Pulse Ox O2 Del Method 09/15/24 07:19 36.3 C L 78 111/78 97 Room Air Laboratory Results Short CBC 09/15/24 Range/Units 06:38 WBC 5.62 (4.8-10.8) K/ul Hgb 10.4 L (12.0-16.0) g/dl Hct 32.7 L (37.0-47.0) % Plt Count 232 (130-400) K/uL BMP 09/15/24 06:38 Sodium 139 Potassium 3.9 Chloride 103 Carbon Dioxide 28 BUN 22 Creatinine 1.00 Glucose 89 Calcium 8.8 Medications Administered Current Inpatient Medications Acetaminophen (Acetaminophen 325 Mg Tab) 650 mg PO QID PRN PRN Reason: pain/fever Stop: 10/13/24 22:13 Apixaban (Apixaban 5 Mg Tablet) 5 mg PO BID MICHELLE Stop: 10/15/24 10:29 Atorvastatin Calcium (Atorvastatin 40 Mg Tab) 40 mg PO QAM MICHELLE Stop: 10/14/24 08:59 Last Admin: 09/15/24 08:47 Dose: 40 mg Baclofen (Baclofen Pain Pump) 1 pump IT CONT MICHELLE Stop: 10/13/24 22:29 Last Admin: 09/14/24 20:56 Dose: 1 pump Doxycycline Hyclate (Doxycycline Hyclate 100 Mg Cap) 100 mg PO BID MICHELLE Stop: 09/21/24 08:59 Last Admin: 09/15/24 08:46 Dose: 100 mg Duloxetine HCl (Duloxetine Hcl 30 Mg Cap) 30 mg PO DAILY MICHELLE Stop: 10/14/24 08:59 Last Admin: 09/15/24 08:46 Dose: 30 mg Escitalopram Oxalate (Escitalopram Oxalate 20 Mg Tab) 20 mg PO QAM MICHELLE Stop: 10/14/24 08:59 Last Admin: 09/15/24 08:46 Dose: 20 mg Furosemide (Furosemide 20 Mg Tab) 20 mg PO Q2D@0900 MICHELLE Stop: 10/17/24 08:59 Promethazine HCl (Phenergan) 6.25 mg in 50.25 mls @ 201 mls/hr IV Q6H PRN PRN Reason: Nausea And Vomiting Stop: 10/13/24 22:13 Cefepime HCl (Maxipime 2000mg) 2,000 mg in 20 mls @ 5 mls/min IV Q8H MICHELLE; Protocol Stop: 09/21/24 05:59 Last Admin: 09/15/24 05:29 Dose: 5 mls/min Lactobacillus Acidophilus (Advanced Probiotic 625 Mg Capsule) 1,250 mg PO DAILY MICHELLE Stop: 10/14/24 13:14 Last Admin: 09/15/24 08:45 Dose: 1,250 mg Melatonin (Melatonin 3 Mg Tab) 3 mg PO HS MICHELLE Stop: 10/14/24 20:59 Last Admin: 09/14/24 20:55 Dose: 3 mg Metoprolol Succinate (Metoprolol Succ 25mg Ext Rel Tab) 25 mg PO Q12 MICHELLE Stop: 10/14/24 08:59 Last Admin: 09/15/24 08:46 Dose: 25 mg Miscellaneous (Aubagio~Order Awaiting Action) 1 each N/A QS [facility] Stop: 10/14/24 07:59 Last Admin: 09/15/24 08:46 Dose: Not Given Multivitamins (Multivitamin Tab) 1 tab PO DAILY MICHELLE Stop: 10/14/24 08:59 Last Admin: 09/15/24 08:47 Dose: 1 tab Oxybutynin Chloride (Oxybutynin Chloride Xl 5 Mg Tabcr) 15 mg PO QAM MICHELLE Stop: 10/14/24 08:59 Last Admin: 09/14/24 08:32 Dose: 15 mg Oxycodone HCl (Oxycodone Hcl Ir 5 Mg Tab (Immediate Release)) 5 mg PO Q4H PRN PRN Reason: Pain Stop: 09/27/24 22:13 Pantoprazole Sodium (Pantoprazole 40 Mg Tab) 40 mg PO QAM MICHELLE Stop: 10/14/24 08:59 Last Admin: 09/15/24 08:48 Dose: 40 mg Prednisone (Prednisone 10 Mg Tablet) 10 mg PO QAM [facility] Stop: 10/14/24 08:59 Last Admin: 09/15/24 08:45 Dose: 10 mg Tizanidine HCl (Tizanidine Hcl 4 Mg Tablet) 4 mg PO Q6 [facility] Stop: 10/14/24 00:00 Last Admin: 09/15/24 05:29 Dose: 4 mg Vitamin D (Cholecalciferol 25 Mcg (1000 Units) Tab) m[facility] [place] Stop: 10/16/24 08:59
[2024-09-15] MEDS: APIXABAN 5 MG TABLET PO SCH (11:26)
[2024-09-15] MEDS: STOP HEPARIN DRIP ORDER ONE (11:31)
[2024-09-15] MEDS: cefTRIAXone SODIUM 2,000 MG/50 ML BAG IV SCH (13:11)
[2024-09-15] MEDS: DAPTOmycin 250 MG in SYRINGE 0 ML IV SCH (13:11)
[2024-09-15 13:18] LABS: ANTI-Xa, UFH(UnfractionatedHep 0.14 IU/ml (0.3-0.7)
[2024-09-16 06:44] LABS: Hematocrit (blood only) 32.6 % (37.0-47.0); Hemoglobin 10.3 g/dl (12.0-16.0); Mean Corpuscular Hemoglobin 27.3 pg (25.0-34.0); Mean Corpuscular Hgb Conc 31.6 g/dL (32.0-36.0); Mean Corpuscular Volume 86.5 fL (80.0-100.0); Mean Platelet Volume 10.4 fL (9.4-12.4); Platelet Count 270 K/uL (130-400); RDW Coefficient of Variation 20.8 % (11.5-14.5); RDW Standard Deviation 65.2 fL (36.4-46.3); Red Blood Count 3.77 M/uL (4.20-5.40); White Blood Count 5.55 K/ul (4.8-10.8)
[2024-09-16 06:54] LABS: Anisocytosis Present; Basophils # (auto) 0.05 K/uL (0.00-0.20); Basophils % (auto) 0.9 %; Eosinophils # (auto) 0.16 K/uL (0.00-0.50); Eosinophils % (auto) 2.9 %; Immature Granulocytes # (auto) 0.05 K/uL (0.01-0.20); Immature Granulocytes % (auto) 0.9 %; Lymphocytes # (auto) 1.37 K/uL (1.20-3.40); Lymphocytes % (auto) 24.7 %; Monocytes # (auto) 0.62 K/uL (0.11-0.59); Monocytes % (auto) 11.2 %; Neutrophils % (auto) 59.4 %; Poikilocytosis Present; Polychromasia 1+
[2024-09-16 07:16] LABS: BUN Creatinine Ratio 27.6 (10-20); Creatinine Clr Calc Pharmacy 45.5 ml/min
[2024-09-16] MEDS: CHOLECALCIFEROL 25 MCG (1000 UNITS) TAB PO SCH (08:19)
--- NOTE | 2024-09-16 09:21 | Hospitalist Progress Note ---
Date of Service September 16, 2024 Assessment & Plan (1) Cellulitis of right lower extremity: Plan Kandy Shelby is a 73y/o F with PMHx significant for CAD, HTN, HLD, PAF, PSVT, nonrheumatic aortic valve stenosis, Raynaud's syndrome, history ESBL E. coli UTI, prior DVT with pulmonary emboli s/p IVC filter placement [on Eliquis], GERD with esophagitis, protein-calorie malnutrition, neurogenic bladder, multiple sclerosis [on chronic prednisone + Aubagio], polyneuropathy with ch ronic pain on Baclofen pump, tobacco use, anemia of chronic disease [baseline Hgb ~9-10], depression with anxiety, sicca syndrome, history of nonmelanoma skin cancer s/p Mohs operation, left breast cancer s/p radiation + surgery, rosacea [on doxycycline], right foot drop, bilateral lower extremity venous stasis, chronic osteomyelitis of the right fibula, chronic right lateral ankle wound and recurrent right lower extremity cellulitis who presented to the ED on 09/13/2024 for evaluation of right lower extremity pain. Patient was previously admitted under our service back in January 2024 with se psis/bacteremia secondary to UTI and right lower extremity cellulitis + osteomyelitis. Blood cultures were positive for fungus and Group B strep/Enterococcus. She completed 2 weeks of IV ampicillin therapy and 2 weeks of oral fluconazole therapy. She was recently in the [facility] ED on 08/23/2024 and was prescribed a course of oral doxycycline + Keflex due to bilateral lower extremity cellulitis. Patient was most recently seen by her PCP on 09/11/2024 as her right lower extremity was seeping and became erythematous. This reportedly started to occur following an EMG she had done at the [facility] on 09/06/2024, which showed evidence of severe sensorimotor polyneuropathy. She was started on a 10-day course of Bactrim on 09/11/2024. Patient also saw Dr. Andrea Velasco at [facility] [place] on 09/11/2024 where it was noted that she have a right ankle ulcer with serous drainage and surrounding erythema. A wound culture was taken at that visit. She was also then prescribed a course of Keflex to take in addition to the Bactrim. Bilateral lower extremity cellulitis admitted to med/surg --RLE VDS negative --RLE CT revealed severe osteoarthritis of the knee joint and moderate knee joint effusion --R foot CT without evidence of osteomyelitis however does show moderate subcutaneous edema consistent with cellulitis. --R foot MRI compatible with cellulitis and possible minimal first digit distal phalanx osteomyelitis, no evidence of abscess. --R ankle MRI with subcutaneous edema suggestive of cellulitis but no evidence of acute osteomyelitis nor abscess. --RLE MRI with no evidence of osteomyelitis within the tibia or fibula however does note subcutaneous fluid reflecting cellulitis or edema. Dr. Oneil consulted and reviewed images - no indication for surgery at this time, continue tx with IV antibiotics Consult ID for assistance with duration given concern for possible OM on MRI Transition antibiotic to IV Rocephin 2g daily and IV Daptomycin, probiotic, previous cultures grew MSSA and group B strep, no prior hx of mrsa noted check CK and place atorvastatin on hold Blood culture NGTD Look into wound culture from [facility] [place] as mentioned above. Wound nurse consulted from previous provider 09/16: bilateral cellulitis significantly improved with some erythema still on b/l dorsum of foot, will need to discuss with infectious disease on 09/17 to determine antibiotic plan at discharge. Suspect pt likely could be discharged in next 1-[address] Navin carrion at foot MRI and he feels its a difficult read and MRI is nonspecific. He feels could be minimal osteomyelitis vs nondisplaced fx H/O DVT + Pulmonary Emboli: eliquis CAD (nonobstructive)/PAF/HTN/Known aortic stenosis Patient follows with Camille Cuevas PA-C at [facility], [facility]. 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 Andrea Walker at [facility], [facility]. 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 Has seen [place] [facility] for pump checks previously. Per pain management --> "There is no urgent reason to interrogate her pump immediately after the MRI due to her current minimal dose and the fact that her motor stall recovery will take likely greater than 10 hours. Patient may utilize tizanidine for any associated breakthrough spasm that may occur during this timeframe. Will plan to interrogate her pump on Tuesday09/17/24 if the patient remains admitted." Anemia of chronic disease: hgb stable, baseline 9-10 DVT Prophylaxis: Eliquis Code Status: FULL CODE PCP: KEVIN Lema Disposition: Admitted in Med/Surg, not yet medically stable for discharge, continue IV antibiotics, PT/OT consulted Patient daughter requesting daily updates from providers --> Alyssa Montalvo, . * Updated daughter Alyssa and she agrees with above I spent a total of 49 minutes coordinating, documenting, and providing care for this patient excluding time spent in the performance of separately billed services. This included personally reviewing all current laboratories and imaging studies, medical reconciliation, outpatient chart review and discussion with specialists. Admission and Anticipated Discharge Date Admission Date: September 13, 2024 Supervising Physician Co-Signing Physician Notes Reviewed the chart in detail. Discussed the case with the collaborating advanced practitioner. I agree with the documentation as above. I have reviewed and confirmed the patients medical history, thefindings on physical examination, and the patients diagnosis and treatment plan with Dottie Zayas PA-C and agree with the information documented. B/L lower extremity cellulitis--POA Suspected right first digit distal phalanx osteomyelitis Right knee osteoarthritis likely causing effusion Venous Doppler showed no signs of DVT Right lower extremity arterial Doppler in July within normal limits with no focal stenosis Blood cultures : No growth to date Continue cefepime, doxycycline>> agree with transition to Dapto, Rocephin based on prior cultures and indications Appreciate orthopedics input Echo showed no signs of CHF Lasix as needed to help with volume Hold statin while on Dapto Await ID input for final recommendations Subjective NAEO. She feels her legs are improving and less swollen/painful. She reports she follows Dr. Velasco for the callus to the lateral aspect of her R foot. Denies f/c/s, chest pain, sob, n/v/d. +BM and urinating appropriately. She is eating well. She is requesting physical therapy. Review of Systems Review of Systems: All systems reviewed & are unremarkable except as noted in HPI & below Physical Exam Physical Exam: Gen: WD/WN, F, NAD, A&O x3, masked facies HEENT: Normocephalic, atraumatic, conjunctivae moist, sclerae anicteric, mucous membranes moist. Lung: Clear to Auscultation bilaterally, no wheezes/rales/rhonchi Heart: Regular rate, regular rhythm, 2/ MARIN LUSB and cardiac apex, rubs, or gal lops Abdomen: Soft, NT, ND +BS x 4 Extremities: no edema, venous stasis b/l, erythema to dorsum of foot otherwise erythema much improved Skin: Warm, no rash, negative turgor. Results & Data Results & Data Vital Signs (Past 12 Hours) Vital Signs Temp Pulse Resp BP Pulse Ox O2 Del Method 09/16/24 08:10 36.8 C 89 16 98/65 L 93 Room Air Laboratory Results Short CBC 09/16/24 Range/Units 06:20 WBC 5.55 (4.8-10.8) K/ul Hgb 10.3 L (12.0-16.0) g/dl Hct 32.6 L (37.0-47.0) % Plt Count 270 (130-400) K/uL BMP 09/16/24 06:20 Sodium 138 Potassium 4.0 Chloride 100 Carbon Dioxide 33 H BUN 27 H Creatinine 0.98 Glucose 87 Calcium 9.0 Cardiac Enzymes 09/15/24 Range/Units 06:38 Total Creatine Kinase 27 (26-192) U/L Medications Administered Current Inpatient Medications Acetaminophen (Acetaminophen 325 Mg Tab) 650 mg PO QID PRN PRN Reason: pain/fever Stop: 10/13/24 22:13 Apixaban (Apixaban 5 Mg Tablet) 5 mg PO BID MICHELLE Stop: 10/15/24 10:29 Last Admin: 09/16/24 08:19 Dose: 5 mg Atorvastatin Calcium (Atorvastatin 40 Mg Tab) 40 mg PO QAM MICHELLE Stop: 10/14/24 08:59 Last Admin: 09/15/24 08:47 Dose: 40 mg Baclofen (Baclofen Pain Pump) 1 pump IT CONT MICHELLE Stop: 10/13/24 22:29 Last Admin: 09/15/24 20:59 Dose: 1 pump Duloxetine HCl (Duloxetine Hcl 30 Mg Cap) 30 mg PO DAILY MICHELLE Stop: 10/14/24 08:59 Last Admin: 09/16/24 08:19 Dose: 30 mg Escitalopram Oxalate (Escitalopram Oxalate 20 Mg Tab) 20 mg PO QAM MICHELLE Stop: 10/14/24 08:59 Last Admin: 09/16/24 08:19 Dose: 20 mg Promethazine HCl (Phenergan) 6.25 mg in 50.25 mls @ 201 mls/hr IV Q6H PRN PRN Reason: Nausea And Vomiting Stop: 10/13/24 22:13 Daptomycin 250 mg/ Syringe 5 mls @ 2.25 mls/min IV Q24H MICHELLE; Protocol Stop: 09/22/24 12:59 Last Admin: 09/15/24 13:11 Dose: 2.25 mls/min Ceftriaxone Sodium (Rocephin) 2,000 mg in 50 mls @ 100 mls/hr IV Q24H MICHELLE Stop: 09/22/24 12:59 Last Infusion: 09/15/24 13:54 Dose: Infused Lactobacillus Acidophilus (Advanced Probiotic 625 Mg Capsule) 1,250 mg PO DAILY MICHELLE Stop: 10/14/24 13:14 Last Admin: 09/16/24 08:19 Dose: 1,250 mg Melatonin (Melatonin 3 Mg Tab) 3 mg PO HS MICHELLE Stop: 10/14/24 20:59 Last Admin: 09/15/24 20:59 Dose: 3 mg Metoprolol Succinate (Metoprolol Succ 25mg Ext Rel Tab) 25 mg PO Q12 MICHELLE Stop: 10/14/24 08:59 Last Admin: 09/16/24 08:20 Dose: Not Given Miscellaneous (Aubagio~Order Awaiting Action) 1 each N/A QS MICHELLE Stop: 10/14/24 07:59 Last Admin: 09/16/24 08:53 Dose: Not Given Multivitamins (Multivitamin Tab) 1 tab PO DAILY MICHELLE Stop: 10/14/24 08:59 Last Admin: 09/16/24 08:20 Dose: 1 tab Oxybutynin Chloride (Oxybutynin Chloride Xl 5 Mg Tabcr) 15 mg PO QAM MICEHLLE Stop: 10/14/24 08:59 Last Admin: 09/16/24 08:20 Dose: 15 mg Oxycodone HCl (Oxycodone Hcl Ir 5 Mg Tab (Immediate Release)) 5 mg PO Q4H PRN PRN Reason: Pain Stop: 09/27/24 22:13 Pantoprazole Sodium (Pantoprazole 40 Mg Tab) [address] [facility] Stop: 10/14/24 08:59 Last Admin: 09/16/24 08:20 Dose: 40 mg Prednisone (Prednisone 10 Mg Tablet) [address] [facility] Stop: 10/14/24 08:59 Last Admin: 09/16/24 08:20 Dose: 10 mg Tizanidine HCl (Tizanidine Hcl 4 Mg Tablet) 4 mg PO Q6 [facility] Stop: 10/14/24 00:00 Last Admin: 09/16/24 05:57 Dose: 4 mg Vitamin D (Cholecalciferol 25 Mcg (1000 Units) Tab) [facility] Stop: 10/16/24 08:59 Last Admin: 09/16/24 08:19 Dose: 25 mcg
[2024-09-17 07:52] LABS: Hematocrit (blood only) 32.9 % (37.0-47.0); Hemoglobin 10.5 g/dl (12.0-16.0); Mean Corpuscular Hemoglobin 26.9 pg (25.0-34.0); Mean Corpuscular Hgb Conc 31.9 g/dL (32.0-36.0); Mean Corpuscular Volume 84.4 fL (80.0-100.0); Mean Platelet Volume 10.9 fL (9.4-12.4); Platelet Count 325 K/uL (130-400); RDW Coefficient of Variation 20.6 % (11.5-14.5); RDW Standard Deviation 63.7 fL (36.4-46.3); White Blood Count 4.82 K/ul (4.8-10.8)
[2024-09-17 08:08] LABS: BUN Creatinine Ratio 30.2 (10-20); Creatinine Clr Calc Pharmacy 51.8 ml/min; Potassium 3.9 mmol/L (3.5-5.1)
[2024-09-17 08:22] LABS: ANTI-Xa, UFH(UnfractionatedHep 0.86 IU/ml (0.3-0.7)
[2024-09-17] MEDS ORDERED: FUROSEMIDE 20 MG TAB PO SCH (09:00)
--- NOTE | 2024-09-17 14:02 | Hospitalist Progress Note ---
Date of Service September 17, 2024 Assessment & Plan (1) Cellulitis of both lower extremities: Plan Kandy Shelby is a 73y/o F with PMHx significant for CAD, HTN, HLD, PAF, PSVT, nonrheumatic aortic valve stenosis, Raynaud's syndrome, history ESBL E. coli UTI, prior DVT with pulmonary emboli s/p IVC filter placement [on Eliquis], GERD with esophagitis, protein-calorie malnutrition, neurogenic bladder, multiple sclerosis [on chronic prednisone + Aubagio], polyneuropathy with chronic pain on Baclofen pump, tobacco use, anemia of chronic disease [baseline Hgb ~9-10], depression with anxiety, sicca syndrome, history of nonmelanoma skin cancer s/p Mohs operation, left breast cancer s/p radiation + surgery, rosacea [on doxycycline], right foot drop, bilateral lower extremity venous stasis, chronic osteomyelitis of the right fibula, chronic right lateral ankle wound and recurr ent right lower extremity cellulitis who presented to the ED on 09/13/2024 for evaluation of right lower extremity pain. Patient was previously admitted under our service back in January 2024 with sep sis/bacteremia secondary to UTI and right lower extremity cellulitis + osteomyelitis. Blood cultures were positive for fungus and Group B strep/Enterococcus. She completed 2 weeks of IV ampicillin therapy and 2 weeks of oral fluconazole therapy. She was recently in the [facility] ED on 08/23/2024 and was prescribed a course of oral doxycycline + Keflex due to bilateral lower extremity cellulitis. Patient was most recently seen by her PCP on 09/11/2024 as her right lower extremity was seeping and became erythematous. This reportedly started to occur following an EMG she had done at the [facility] on 09/06/2024, which showed evidence of severe sensorimotor polyneuropathy. She was started on a 10-day course of Bactrim on 09/11/2024. Patient also saw Dr. Andrea Velasco at [facility] [place] on 09/11/2024 where it was noted that she have a right ankle ulcer with serous drainage and surrounding erythema. A wound culture was taken at that visit. She was also then prescribed a course of Keflex to take in addition to the Bactrim. BLE Cellulitis: LE venous doppler negative for DVT. CXR with no acute cardiopulmonary findings. RLE CT revealed severe osteoarthritis of the knee joint and moderate knee joint effusion R foot CT without evidence of osteomyelitis however does show moderate subcutaneous edema consistent with cellulitis. R foot MRI compatible with cellulitis and possible minimal first digit distal phalanx osteomyelitis, no evidence of abscess. R ankle MRI with subcutaneous edema suggestive of cellulitis but no evidence of acute osteomyelitis nor abscess. RLE MRI with no evidence of osteomyelitis within the tibia or fibula however does note subcutaneous fluid reflecting cellulitis or edema. Ortho consulted --> No need for R knee aspiration as her effusion is caused from her osteoarthritis. Continue IV ABX therapy, no surgical intervention warranted. Per previous provider, Marquez COYNE --> "I had Dr. Holden take a look at foot MRI and he feels its a difficult read and MRI is nonspecific. He feels could be minimal osteomyelitis vs nondisplaced fx." ID consult pending for assistance with ABX duration given concern for possible osteomyelitis on R foot MRI. Consulted HIM to get the wound culture results from [facility] [place] as mentioned above - have not heard anything back. Transitioned patient to IV Rocephin + IV Daptomycin (on day #3 of this regimen). No history of MRSA infection. Continue probiotic. Blood culture NGTD. Home atorvastatin on hold given daptomycin use. 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 Continue home metoprolol succinate. BP has remained stable. Nonobstructive CAD, HLD & H/O NSTEMI Grade I Diastolic Dysfunction, Aortic Stenosis: Patient follows with Camille [facility]uevas [facility] Atorvastatin on hold given daptomycin use. Most recent echo done 02/03/2024 during previous admission --> LVEF>70%, mild concentric LVH, no regional wall motion abnormalities, grade I diastolic dysfunction and mild valvular aortic stenosis. Echo this admission --> hyperdynamic LV, LVEF = >70%, mild concentric LVH, mild valvular aortic stenosis and mild mitral regurgitation. Patient with +2 edema on admission and was therefore started on oral lasix. Swelling has significantly improved. Was likely ISO cellulitis, BNP 104. Lasix has since been discontinued due to softer BPs. 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 She follows with Dr. Andrea Walker at [facility] [address] [facility], [facility]. Patient is on chronic prednisone therapy in addition to Aubagio daily - continue. Notably immunocompromised given chronic steroid use. Patient with limited mobility at baseline - uses a wheelchair at baseline to get around, can transfer herself. PT/OT recommending patient to return home when stable for discharge. Anemia of Chronic Disease: Hgb stable, baseline Hgb ~9-10 per chart review. 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 Has seen [facility] for pump checks previously. Per pain management --> "There is no urgent reason to interrogate her pump immediately after the MRI due to her current minimal dose and the fact that her motor stall recovery will take likely greater than 10 hours. Patient may utilize tizanidine for any associated breakthrough spasm that may occur during this timeframe. Will plan to interrogate her pump on Tuesday09/17/24 if the patient remains admitted." Other Chronic Medical Conditions: GERD, depression with anxiety, polyneuropathy --> Continue home medications for these specific conditions as prescribed. 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 *Placed a behavioral health liaison consult at the patient's request to discuss outpatient therapy options. Patient with recent loss of a family member, denies any suicidal/homicidal ideations.* DVT Prophylaxis: ELECTRIC DRILL OPERATOR Eliquis Code Status: FULL CODE PCP: KEVIN Lema Disposition: Admitted in Med/Surg - Medically stable for discharge home, however awaiting ID recommendations for final ABX recommendations (? possible discharge this evening). Patient seen in collaboration with Dr. Armenta. Please see addendum. I spent a total of 45 minutes coordinating, documenting, and providing care for this patient excluding time spent in the performance of separately billed services. This included personally reviewing all current laboratories and imagin g studies, medical reconciliation, outpatient chart review and discussion with specialists. This chart was completed in part utilizing Speech Voice Recognition Software. Grammatical errors, random word insertions, pronoun errors, and incomplete sentences are an occasional consequence of this system due to software limitations, ambient noise, and hardware issues. Any formal questions or concerns about the content, text, or information contained within the body of this dictation should be directly addressed to the provider for clarification. Admission and Anticipated Discharge Date Admission Date: September 13, 2024 Supervising Physician Co-Signing Physician Notes I have seen and examined the patient at bedside. Discussed the case with the collaborating advanced practitioner. I agree with the documentation as above. I have reviewed and confirmed the patients medical history, the findings on physical examination, and the patients diagnosis and treatment plan with Fay Greenwood PA-C and agree with the information documented. B/L lower extremity cellulitis--POA Suspected right first digit distal phalanx osteomyelitis Right knee osteoarthritis likely causing effusion Venous Doppler showed no signs of DVT Right lower extremity arterial Doppler in July within normal limits with no focal stenosis Blood cultures : No growth to date Continue cefepime, doxycycline>> agree with transition to Dapto, Rocephin based on prior cultures and indications Appreciate orthopedics input Echo showed no signs of CHF Lasix as needed to help with volume Hold statin while on Dapto Await ID input for final recommendations Clinically much improved Likely discharge in 1 to 2 days Subjective Patient without any complaints this morning, states that she is feeling much improved. Her BLE erythema and swelling have gotten much better. She is asking to see PT today and would like to discuss outpatient therapist options. Review of Systems Review of Systems: At least ten systems reviewed and negative, except as noted in the subjective section. Physical Exam Physical Exam: General: WD/WN, vitals as above, NAD, sitting up in bed, very pleasant, conversing appropriately. A+Ox3, euthymic affect. HEENT: Normocephalic, atraumatic. PERRL, conjunctivae normal, anicteric sclerae. External ear and nose normal, oropharynx normal. Respiratory: Normal respiratory effort, lungs clear to auscultation, no wheeze, rales, rhonchi. No accessory muscle use. Cardiovascular: Regular rate, rhythm, no murmur, normal peripheral pulses, BLE edema significantly improved. Vessels: No JVD. Abdomen/GI: Normal bowel sounds, soft, nontender, no hepatosplenomegaly. Extremities/Musculoskeletal: No cyanosis or clubbing, BLE erythema significantly improved. Neurologic: EOMI, no focal deficits, CN's II-XI not formally tested but appear grossly intact bilaterally. Skin: No rashes, normal color, warm/dry. Venous stasis changes of BLE noted. Results & Data Results & Data Vital Signs (Past 12 Hours) Vital Signs Temp Pulse Resp BP Pulse Ox O2 Del Method 09/17/24 07:01 36.6 C 68 16 126/78 95 Room Air Laboratory Results Short CBC 09/17/24 Range/Units 07:03 WBC 4.82 (4.8-10.8) K/ul Hgb 10.5 L (12.0-16.0) g/dl Hct 32.9 L (37.0-47.0) % Plt Count 325 (130-400) K/uL BMP 09/17/24 07:03 Sodium 139 Potassium 3.9 Chloride 102 Carbon Dioxide 32 BUN 26 H Creatinine 0.86 Glucose 84 Calcium 9.0
--- NOTE | 2024-09-17 16:53 | Infectious Disease Consult ---
Date of Service September 17, 2024 Telehealth Information I performed this visit using a real-time telehealth connection between my location and the patients location ([facility]). After connecting through interactive tele-video, patient was identified by name and date of and/or wristband check.Patient (or authorized healthcare sales representative facility services) was informed that this was a telemedicine visit and it was being conducted confidentially over secure lines. My office door was closed and no one else was present in the room with me.Patient (or authorized healthcare sales representative facility services) provided consent to proceed with the visit, expressed an understanding of privacy and security of the telemedicine visit, and gave permission to have a hospital sales representative facility services in the room in order to assist with the visit and to conduct portions of the visit, as needed. I informed the patient (or authorized healthcare sales representative facility services) that I reviewed their record and presented the opportunity for them to ask any questions regarding the visit today. The patient agreed to participate. Assessment & Plan (1) Cellulitis of right lower extremity: Plan: For a nonpurulent cellulitis, I recommend Ancef monotherapy. If the patient continues to improve, she can be transitioned to PO Keflex at discharge - discuss with your pharmacist re: dosing. Total ABX duration will be 6 days. Infectious Disease is signing off and will no longer follow this patient. Contact us for any new issues that arise after we sign off. If any testing finalizes after ID signs off, you must notify us (ID is not automatically notified about any inpatient testing results, regardless of who ordered the test). History of Present Illness History of Present Illness The patient was admitted due to LE erythema/edema. There was concern for a possible complication but MRI was negative for abscess/OM. Orthopedics was not concerned about a septic joint. The patient reports feeling better since starting ABX - she notes that her redness/swelling have almost resolved. Allergies Allergy/AdvReac Type Severity Reaction Status Date / Time No Known Allergies Allergy Verified 08/28/24 12:57 Home Medications Medication Instructions Recorded Confirmed Type cholecalciferol (vitamin D3) 25 2,000 units PO QAM 09/18/18 09/13/24 History mcg (1,000 unit) capsule escitalopram oxalate 20 mg tablet 20 mg PO QAM 09/18/18 09/13/24 History (Lexapro) oxybutynin chloride 15 mg 15 mg PO QAM 09/18/18 09/13/24 History tablet,extended release 24 hr prednisone 10 mg tablet 10 mg PO QAM 09/18/18 09/13/24 History omeprazole 40 mg capsule,delayed 40 mg PO QAM 07/06/21 09/13/24 History release teriflunomide 14 mg tablet 14 mg PO QPM 05/13/22 09/13/24 History (Aubagio) doxycycline hyclate 50 mg capsule 50 mg PO Q2D Rosacea 08/10/22 09/13/24 History melatonin 3 mg tablet 3 mg PO HS 03/05/23 09/13/24 History multivitamin 1 tab PO DAILY 03/05/23 09/13/24 History Baclofen Pump 0 mg SC DIRECTED 08/05/23 09/13/24 History apixaban 5 mg tablet (Eliquis) 5 mg PO BID 02/03/24 09/13/24 History metoprolol succinate 25 mg 25 mg PO Q12 #60 tabs 04/19/24 09/13/24 Rx tablet,extended release 24 hr tizanidine 4 mg tablet (Zanaflex) 4 mg PO Q6 Muscle Spasm #120 tabs 07/19/24 09/13/24 Rx atorvastatin 40 mg tablet 40 mg PO QAM 09/13/24 09/13/24 History duloxetine 30 mg capsule,delayed 30 mg PO DAILY 09/13/24 09/14/24 History release sulfamethoxazole 800 1 tab PO BID 09/13/24 09/13/24 History mg-trimethoprim 160 mg tablet Patient History Medical History Fever History of recent hospitalization 09/2022 [facility] - sepsis History of blood transfusion Limb alert care status left arm Osteoarthritis of right shoulder History of GI bleed Upper GIB (2019) felt 2/2 NSAID use History of non-ST elevation myocardial infarction (NSTEMI) 06/2021 (had heart cath, no stents) Hx of gastric ulcer 02/2021 Anemia Hypertension controlled, stable per pt Surgical History History of removal of Port-a-Cath (02/09/24) Mediport Removal(Right) - Tristin Lazo DO Port-A-Cath in place (09/29/23) A-Port Insertion, right internal jugular(Right) - Tristin Lazo DO S/p reverse total shoulder arthroplasty right: 05/25/22 LMA#4. No postop issues per anesthesia progress note. History of cardiac cath Cardiac cath (07/06/21; [facility]) > Right dominant coronary system. No evidence of aortic stenosis. Normal left ventricular filling pressures. Nonobstructive disease involving the ostial LAD. No evidence of acute coronary syndrome. Approximately 50% ostial stenosis of the LAD. There was some very mild disease at the ostium of the left circumflex. Recommendations: Medical management. History of esophagogastroduodenoscopy (EGD) History of colonoscopy History of tooth extraction Family History Mother Heart disorder Other No family history of adverse response to anesthesia Social History Smoking Status: Former smoker Tobacco Type: Cigarettes packs per day: 1; Cigarettes Per Day: stopped in 1977; Second Hand Exposure: No; Do You Dip or Chew Tobacco: No; Hx Alcohol Use: No Hx Substance Use: No Preferred Language: Georgian Communication Ability: Effective Visual Impairment: Limited Hearing Ability: Use of Hearing Aid Museum Security Chief Required: No Beliefs That Will Affect Care: None marital status: / Current Living Situation: Alone Current Living Situation Comment: daughters are an hour away but check on her frequently per pt current occupational status: retired How many Children do You have: 3 Other Information That Helps Us Care for You: No Feels Safe at Home: Yes Safety Concerns: Feels Safe At This Time Childhood Exposure to Second-Hand Smoke: Yes Diet: regular caffeine: Yes Assistive Devices: Walker and Wheelchair Assistive Devices Comment: reading glasses Review of Systems As reviewed in HPI; a complete ROS was otherwise negative Physical Exam Vitals: see EMR Exam limited due to constraints of telemedicine Gen/Constitutional: appears at stated age, NAD, nontoxic Head: AT, NC Eyes: sclera anicteric, no conjunctival injection ENT: MMM, trachea midline Card: appears to be well-perfused Resp: not tachypneic, nml effort, symmetric chest rise, no accessory muscle use Derm: no visible diaphoresis, no visible rash, no visible jaundice Results & Data Vital Signs (Past 12 Hours) Vital Signs Temp Pulse Resp BP Pulse Ox O2 Del Method 09/17/24 15:05 36.8 C 82 16 108/78 97 Room Air 09/17/24 07:01 36.6 C 68 16 126/78 95 Room Air Laboratory Results SEE EMR Diagnostic Findings SEE EMR
[2024-09-18 08:11] VITALS: RESP 16
--- NOTE | 2024-09-18 09:53 | Communication Note ---
Date of Service: September 18, 2024 Pain service was previously informed that patient was to undergo MRI during her hospitalization, with the patient having been admitted on 09/13/2024. She underwent a foot, lower extremity, and ankle MRI on the evening of 09/14/2024. The patient does have indwelling intrathecal pump, currently programmed at minimal rate. It was felt that there was no urgent reason to interrogate her pump immediately after the MRI due to her current minimal dose and the fact that her motor stall recovery was expected to take likely greater than 10 hours. Pump was interrogated today, 09/18/2024, with a noted motor stall occurring on 09/14/2024 at 1358 hrs. The report noted that there was a recovery of the pump motor on 09/15/2024 at 0214 hrs. Patient was not seen by the provider. Pain clinic nursing staff performed the pump interrogation today. Refer to scanned pump printout for more details.
--- NOTE | 2024-09-18 10:22 | Discharge Summary ---
Discharge Summary Date of Service September 18, 2024 Principal Dx & Hospital Course #1 = Principal Diagnosis (1) Cellulitis of both lower extremities: Aman Shelby is a 73y/o F with PMHx significant for CAD, HTN, HLD, PAF, PSVT, nonrheumatic aortic valve stenosis, Raynaud's syndrome, history ESBL E. coli UTI, prior DVT with pulmonary emboli s/p IVC filter placement [on Eliquis], GERD with esophagitis, protein-calorie malnutrition, neurogenic bladder, multiple sclerosis [on chronic prednisone + Aubagio], polyneuropathy with chronic pain on Baclofen pump, tobacco use, anemia of chronic disease [baseline Hgb ~9-10], depression with anxiety, sicca syndrome, history of nonmelanoma skin cancer s/p Mohs operation, left breast cancer s/p radiation + surgery, rosacea [on doxycycline], right foot drop, bilateral lower extremity venous stasis, chronic osteomyelitis of the right fibula, chronic right lateral ankle wound and recurrent right lower extremity cellulitis who presented to the ED on 09/13/2024 for evaluation of right lower extremity pain. Patient was previously admitted under our service back in January 2024 with sepsis/bacteremia secondary to UTI and right lower extremity cellulitis + osteomyelitis. Blood cultures were positive for fungus and Group B strep/Enterococcus. She completed 2 weeks of IV ampicillin therapy and 2 weeks of oral fluconazole therapy. She was recently in the [facility] ED on 08/23/2024 and was prescribed a course of oral doxycycline + Keflex due to bilateral lower extremity cellulitis. Patient was most recently seen by her PCP on 09/11/2024 as her right lower extremity was seeping and became erythematous. This reportedly started to occur following an EMG she had done at the [facility] on 09/06/2024, which showed evidence of severe sensorimotor polyneuropathy. She was started on a 10-day course of Bactrim on 09/11/2024. Patient also saw Dr. Andrea Velasco at [facility] [place] on 09/11/2024 where it was noted that she have a right ankle ulcer with serous drainage and surrounding erythema. A wound culture was taken at that visit. She was also then prescribed a course of Keflex to take in addition to the Bactrim. BLE Cellulitis: LE venous doppler negative for DVT. CXR with no acute cardiopulmonary findings. RLE CT revealed severe osteoarthritis of the knee joint and moderate knee joint effusion R foot CT without evidence of osteomyelitis however does show moderate subcutaneous edema consistent with cellulitis. R ankle MRI with subcutaneous edema suggestive of cellulitis but no evidence of acute osteomyelitis nor abscess. RLE MRI with no evidence of osteomyelitis within the tibia or fibula however does note subcutaneous fluid reflecting cellulitis or edema. R foot MRI compatible with cellulitis and possible minimal first digit distal phalanx osteomyelitis, no evidence of abscess. Consulted HIM to get the wound culture results from [facility] as mentioned above - was unable to obtain records. Ortho consulted --> No need for R knee aspiration as her effusion is caused from her osteoarthritis, no surgical intervention warranted. Per previous provider, Marquez COYNE --> "I had Dr. Holden take a look at foot MRI and he feels its a difficult read and MRI is nonspecific. He feels could be minimal osteomyelitis vs nondisplaced fx." ID consulted as well --> Did not appreciate osteomyelitis findings on the R foot MRI. Recommended a course of po Keflex at time of discharge. She was initially on IV cefepime + oral doxycycline from 09/13-09/14, then she was transitioned to IV Rocephin + IV daptomycin on 09/15. She has completed 6 days of IV ABX therapy. Will be discharging her on a 4-day course of po Keflex to complete a full 10-day course of ABX therapy. Blood culture NGTD. Continue probiotic at time of discharge, especially while on ABX therapy. Paroxysmal Atrial Fibrillation, HTN & H/O DVT + Pulmonary Emboli: Continue [employer] Eliquis - was restarted on 09/15. Continue home metoprolol succinate. Nonobstructive CAD, HLD & H/O NSTEMI Grade I Diastolic Dysfunction, Aortic Stenosis: Patient follows with Camille Cuevas PA-C at [facility]. Atorvastatin resumed; was previously held while patient was on IV daptomycin. Most recent echo done 02/03/2024 during previous admission --> LVEF>70%, mild concentric LVH, no regional wall motion abnormalities, grade I diastolic dysfunction and mild valvular aortic stenosis. Echo this admission --> hyperdynamic LV, LVEF = >70%, mild concentric LVH, mild valvular aortic stenosis and mild mitral regurgitation. Patient with +2 edema on admission and was therefore started on oral Lasix 20mg daily. Swelling has significantly improved. Was likely ISO cellulitis, BNP 104. Lasix has since been discontinued due to softer BPs. Anemia of Chronic Disease: Hgb stable, baseline Hgb ~9-10 per chart review. Chronic Back Pain: Patient with an indwelling intrathecal Baclofen pump in place [employer]. Has seen [facility] for pump checks previously. 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 She follows with Dr. Andrea Walker at [facility], [facility]. Patient is on chronic prednisone therapy in addition to Aubagio daily - continue. Patient with limited mobility at baseline - uses a wheelchair at baseline to get around, can transfer herself. Patient stable to return home with [employer] caregiver support per PT/OT. Other Chronic Medical Conditions: GERD, depression with anxiety, polyneuropathy --> Continue home medications for these specific conditions as prescribed. Continue to hold [employer] oral doxycycline for rosacea at time of discharge until she completes the full 4-day course of po Keflex. PCP: KEVIN Lema Disposition: Patient is being discharged home in stable condition with po course of ABX therapy and close PCP follow-up. Patient seen in collaboration with Dr. Armenta. Please see addendum. I spent a total of 55 minutes coordinating, documenting, and providing care for this patient excluding time spent in the performance of separately billed services. This included personally reviewing all current laboratories and imaging studies, medical reconciliation, outpatient chart review and discussion with specialists. This chart was completed in part utilizing Speech Voice Recognition Software. Grammatical errors, random word insertions, pronoun errors, and incomplete sentences are an occasional consequence of this system due to software limitations, ambient noise, and hardware issues. Any formal questions or concerns about the content, text, or information contained within the body of this dictation should be directly addressed to the provider for clarification. Notes For Next Care Provider Patient would like to discuss outpatient therapy options. Medication Changes From Visit Started on a 4-day course of po Keflex for BLE cellulitis. Continue to hold prior to arrival oral doxycycline for rosacea at time of discharge whilst completing the full 4-day course of po Keflex. Can resume taking her doxycycline once her course of Keflex is complete. Patient can resume taking all of her other home medications as prescribed. Admission HPI Per Admitting Provider History obtained from patient, family, and records. Medical history significant for CAD, PSVT,PAF/PE DVT status post IVC filter placement on Eliquis, mild (TTE 2023), hypertension, hyperlipidemia, , MS on chronic prednisone and Aubagio Rx, history of neurogenic bladder, history ESBL E. coli UTI, L breast cancer status post surgery/radiation, past history right ankle osteomyelitis, chronic right ankle ulcer, history of venous stasis as per records,, chronic anemia (baseline hemoglobin 9-10), rosacea on doxycycline, skin cancer status post surgery, chronic pain on baclofen pump, past tobacco abuse. Last confinement March 2024 for sepsis secondary to left prepatellar bursitis. Group B strep on cultures. Patient discharged on cefdinir course. Recent ER visit 3 weeks ago for RLE pain and numbness. Patient discharged on outpatient doxycycline and Keflex course. Swelling improved with medication. Outpatient EMG recommended by PCP on follow-up visit 2 weeks ago. Patient noted recurrent right lower leg/foot swelling with clear drainage about shortly after after EMG procedure. Denies recent falls or trauma. No chest pain, no SOB. Bactrim course initiated by PCP on outpatient follow-up visit 2 days ago.. MRI studies of the of the lower extremity recommended. Wound cultures obtained at [facility] service counter cashier office 2 days ago. Patient directed to ER because of elevated outpatient WBC and procalcitonin levels. Ceftriaxone administered at the ER. MED hx as above : OPERATIONS: She has had left mastectomy, left hip surgery, IVC filter placement, hysterectomy, shoulder surgery, dental surgery, spinal pain pump p lacement, appendectomy family by fracture surgery, a port placement/removal, bone debridement FAMILY HISTORY: thyroid cancer, heart disease PERSONAL AND SOCIAL HISTORY: Past tobacco abuse. No chronic intake of alcoholic beverages. 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 Admission Exam Per Admitting Provider GENERAL: Comfortable, pleasant, slightly hard of hearing, no respiratory distress SKIN: Pallor, warm HEENT: Pale palpebral conjunctivae, no ptosis, dry buccal mucosa NECK : Supple, no tenderness CHEST : CTA, no tenderness HEART : RRR, systolic murmur ABDOMEN: Some distention, no tenderness tenderness EXTREMITIES : Tender RLE/right foot swelling NEUROLOGIC : Coherent, no facial asymmetry, mild hearing impairment, gait and stance not assessed Discharge Exam General: WD/WN, vitals as above, NAD, sitting up in bed, very pleasant, conversing appropriately. A+Ox3, euthymic affect. HEENT: Normocephalic, atraumatic. PERRL, conjunctivae normal, anicteric sclerae. External ear and nose normal, oropharynx normal. Respiratory: Normal respiratory effort, lungs clear to auscultation, no wheeze, rales, rhonchi. No accessory muscle use. Cardiovascular: Regular rate, rhythm, no murmur, normal peripheral pulses, BLE edema significantly improved. Vessels: No JVD. Abdomen/GI: Normal bowel sounds, soft, nontender, no hepatosplenomegaly. Extremities/Musculoskeletal: No cyanosis or clubbing, BLE erythema significantly improved. Neurologic: EOMI, no focal deficits, CN's II-XI not formally tested but appear grossly intact bilaterally. Skin: No rashes, normal color, warm/dry. Venous stasis changes of BLE noted. Updated Medication List Medication Instructions Recorded Confirmed Type cholecalciferol (vitamin D3) 25 2,000 units PO QAM 09/18/18 09/13/24 History mcg (1,000 unit) capsule escitalopram oxalate 20 mg tablet 20 mg PO QAM 09/18/18 09/13/24 History (Lexapro) oxybutynin chloride 15 mg 15 mg PO QAM 09/18/18 09/13/24 History tablet,extended release 24 hr prednisone 10 mg tablet 10 mg PO QAM 09/18/18 09/13/24 History omeprazole 40 mg capsule,delayed 40 mg PO QAM 07/06/21 09/13/24 History release teriflunomide 14 mg tablet 14 mg PO QPM 05/13/22 09/13/24 History (Aubagio) doxycycline hyclate 50 mg capsule 50 mg PO Q2D Rosacea 08/10/22 09/13/24 History melatonin 3 mg tablet 3 mg PO HS 03/05/23 09/13/24 History multivitamin 1 tab PO DAILY 03/05/23 09/13/24 History Baclofen Pump 0 mg SC DIRECTED 08/05/23 09/13/24 History apixaban 5 mg tablet (Eliquis) 5 mg PO BID 02/03/24 09/13/24 History metoprolol succinate 25 mg 25 mg PO Q12 #60 tabs 04/19/24 09/13/24 Rx tablet,extended release 24 hr tizanidine 4 mg tablet (Zanaflex) 4 mg PO Q6 Muscle Spasm #120 tabs 07/19/24 09/13/24 Rx atorvastatin 40 mg tablet 40 mg PO QAM 09/13/24 09/13/24 History duloxetine 30 mg capsule,delayed 30 mg PO DAILY 09/13/24 09/14/24 History release cephalexin 500 mg capsule 500 mg PO QID 4 days #16 caps 09/18/24 Rx Hospital Stay Data Consultations 09/13/24 21:27 ED Decision to Admit Stat 09/14/24 13:23 Consult Orthopedic Surgery Routine 09/14/24 13:29 HIM [Consult Health Information Management] Routine 09/15/24 10:27 Consult Infectious Diseases Routine 09/17/24 14:13 Consult Behavioral Health Liaison Routine Diagnostic Imagining Performed 09/13/24 18:21 US venous doppler LE RT Stat 09/13/24 22:13 CT foot RT w con Stat CT tib/fib RT w con Stat 09/14/24 04:37 MR foot RT wo/w con Routine MRI Leg [MR lower leg RT wo/w con] Routine 09/14/24 06:05 MR ankle RT wo/w con Routine Pending Results Patient Have Any Pending Studies at Discharge: No Discharge Instructions Given to Patient (Per Discharging Provider) Kandy, You were admitted to the hospital due to bilateral lower extremity cellulitis (skin infection) and received IV antibiotics with significant improvement of the infection. You were seen and evaluated by infectious disease. You are being discharged home on a 4-day course of oral Keflex (cephalexin), which is an antibiotic. As we had discussed earlier, please continue to take a probiotic at home while on this medication in order to help prevent gastrointestinal upset that can sometimes be caused by antibiotic use. You already have a hospital discharge follow-up appointment scheduled with KEVIN Tovar as per below. Please attend this appointment as scheduled! MEDICATION CHANGES 1. You are being prescribed a 4-DAY course of oral KEFLEX. * Please begin taking this antibiotic tomorrow morning. Please take this antibiotic as prescribed and in its entirety! 2. Please HOLD off on taking doxycycline for your rosacea until you complete the full course of Keflex! * You can resume taking this medication once you finish taking the Keflex. FOLLOW-UP APPOINTMENTS Date & Time: 09/21/2024 @ 11:00 AM Provider: KEVIN Velasquez Department: [facility] Seek medical attention if you have: * temperature above 101F * chest pain or trouble breathing * abdominal pain, nausea, vomiting * diarrhea, dark stools or bloody stools * any unanswered questions or concerns Call 911 if symptoms are severe. Please take good care of yourself. It has been a pleasure taking care of you. If you have any questions regarding your recent hospitalization please contact [facility] and request Sara Yonist @ [phone]. Total Time Total Time Spent Total Time Spent (In Minutes): 55 Supervising Physician Co-Signing Physician Notes I have seen and examined the patient at bedside. Discussed the case with the collaborating advanced practitioner. I agree with the documentation as above. I have reviewed and confirmed the patients medical history, the findings on physical examination, and the patients diagnosis and treatment plan with Fay Greenwood PA-C and agree with the information documented. Leg erythema, edema, pain clinically improved B/L lower extremity cellulitis--POA Suspected right first digit distal phalanx osteomyelitis Right knee osteoarthritis likely causing effusion Venous Doppler showed no signs of DVT Right lower extremity arterial Doppler in July within normal limits with no focal stenosis Blood cultures : No growth to date Continue cefepime, doxycycline>> agree with transition to Dapto, Rocephin based on prior cultures and indications Appreciate orthopedics input Echo showed no signs of CHF Lasix as needed to help with volume Hold statin while on Dapto Appreciate ID input Transition to oral antibiotics to complete the course as recommended by ID Needs follow-up with PCP on discharge
[2024-09-18 11:11] LABS: Magnesium 1.9 mg/dl (1.7-2.4)
[2024-09-18 11:17] VITALS: BP 112/75; PULSE 80; TEMP 97.9; O2SAT 99
[2024-09-18 11:36] LABS: ANTI-Xa, UFH(UnfractionatedHep > 1.50 IU/ml (0.3-0.7)
== END 2024-09-18 16:58 | disposition home or self-care (01) | DRG 603 ==
LOC: ED 17:13 → 3N 22:10

== ENCOUNTER 2024-10-01 10:34 | Inpatient (IN) ==
[2024-10-01] MEDS ORDERED: VANCOMYCIN CONSULT ACTIVE PRN (10:58)
[2024-10-01] MEDS ORDERED: DEXTROSE 5% IV ONE (10:58)
[2024-10-01] MEDS ORDERED: VANCOMYCIN HCL IV ONE (10:58)
--- NOTE | 2024-10-01 11:14 | Emergency Department Note ---
Impression & Plan Sepsis, Elevated lactic acid level, Cellulitis, Fall, Head injury, Contusion of face, Elevated troponin I level ED Provider Note NAME: NADEEN ANNE AGE: 73 SEX: F : 1950 ARRIVES VIA: Ambulance INFORMANT: Patient, EMS ED PROVIDER(S): Louis Vieira DO CHIEF COMPLAINT: Fall HPI: The patient is a 73-year-old female who presented to the emergency department after a fall. The patient fell last evening. She struck the right side of her face. The patient has not been feeling well and yesterday she noticed that when she went to stand up she was getting dizzy. The patient denies having any chest pain or difficulty breathing at this time. She denies having any abdominal pain. The patient has a history of cellulitis. She was in our facility recently because of an infection. The patient did not know that she had a fever. The patient denies having any neck or back pain. She does take Eliquis and was made a trauma alert prior to arrival because of the fall. ROS: See above HPI for pertinent positives & negatives. A total of 10 systems reviewed and were otherwise negative. PAST MEDICAL HISTORY: See Below PAST SURGICAL HISTORY: See Below FAMILY HISTORY: See Below SOCIAL HISTORY: See Below HOME MEDICATIONS: See Below ALLERGIES: See Below VITALS: See Below PHYSICAL EXAMINATION: GENERAL: The patient is awake and alert. The patient is very anxious. EYES: The conjunctivae are clear. The pupils are round and reactive. There is right sided periorbital ecchymosis which was significant. Extraocular muscles are intact. EARS, NOSE, MOUTH AND THROAT: The nose is without any evidence of any deformity. Mucous membranes are dry. NECK: The neck is nontender and supple. RESPIRATORY: Normal respiratory effort is noted there is no evidence of wheezing rhonchi or rales CARDIOVASCULAR: Tach cardiac and regular heart sounds were noted to auscultation. There is no definite murmur. GASTROINTESTINAL: The abdomen is soft. Abdomen is nontender. MUSCULOSKELETAL/EXTREMITIES: There is no evidence of gross deformity full range of motion is noted in the hips and shoulders. SKIN: Skin was cool and dry. Pedal edema was noted bilaterally. There was significant cellulitis noted to the right lower extremity. NEUROLOGIC: Patient is awake alert and oriented x3. MEDICAL DECISION MAKING: The patient is a 73-year-old female who presented to the emergency department for an evaluation of trauma. She was found on the floor after a fall. She was dizzy and lightheaded and effectively felt likely secondary to sepsis. She does have very poor circulation in her lower extremities. Her right leg appears to be consistent with cellulitis. She was recently in our facility for similar complaints. She was treated with IV fluids as well as IV antibiotics. She was reevaluated multiple times. Her blood pressure did not significantly improve but she only got part of the IV fluids. For this reason a central line was placed. I discussed her condition with the on-call [facility]. They have agreed to evaluate the patient in the emergency department for further management and disposition. Triage Nursing notes reviewed. Prior medical records reviewed Vital Signs: reviewed and remarkable for hypotension and tachycardia. Differential diagnosis: Infection, dehydration, metabolic abnormality, hypo/hyperglycemia, electrolyte disturbance, anemia, hypoxia, cardiac sources, intracerebral event, toxicologic, neurologic, as well as other pathologies. ER treatment provided: See below Diagnostics interpreted by me: ECG: EKG was obtained in the emergency department. My interpretation is sinus tachycardia at 146 bpm. PVCs were noted. Peaked T waves were noted. Nonspecific ST segment abnormalities were also appreciated. This was compared to a tracing from September 13, 2024. There is an increase in the rate as well as the presence of PVCs noted. Cardiac Monitoring: An order was placed for continuous cardiac monitoring. The monitor shows a rate of 111 bpm with sinus tachycardia. Laboratory studies: As stated above and show below. Imaging studies: See below. Radiographic imaging was reviewed by myself Consultation(s): I discussed this case with Dr. Hale who is on-call for the [facility]. ED COURSE: Procedures: Femoral Central Venous Catheter Indication: Sepsis Catheter Type: Triple-lumen Location: Right femoral vein Verbal consent was obtained after the risks and benefits were explained, including but not limited to intra-abdominal injury, vessel injury, bleeding, scarring, infection, pain, and bone/joint/nerve damage. At this time, the risks of the procedure are less than the risks of NOT performing the procedure. A time out was taken and the correct patient and site identified. The patient was placed in the supine position and the skin was prepped in the standard fashion with chlorhexidine and full sterile drapes applied. The proper landmarks were identified with ultrasound, anesthetized with 1% lidocaine without epinephrine, and the needle was inserted through the skin in the standard fashion. The needle was carefully advanced into blood vessel lumen with ultrasound guidance. The guidewire was placed uneventfully. The vessel is dilated and the catheter was placed. It was sutured into position. There was good blood return from all ports. The patient tolerated the procedure well and there were no complications. Critical Care: I have personally spent greater than 55 minutes of critical care time in the direct management of this patient. This includes bedside care, interpretation of diagnostic studies, and testing, discussion with consultants, patient, and family members, and other required patient management activities. This 55 minutes is in excess of all separately billable procedures. Past Med/Surg History Problem List Contusion of face (Acute) Head injury (Acute) Fall (Acute) Cellulitis (Acute) Sepsis (Acute) Osteoarthritis of knees, bilateral Knee pain (Acute) Septic prepatellar bursitis (Acute) Paroxysmal atrial fibrillation Wound infection CLABSI (central line-associated bloodstream infection) Bacteremia Fungemia Myocardial strain Tachycardia Rosacea Hypomagnesemia Diarrhea Acute deep vein thrombosis of left lower extremity (Chronic) Traumatic open wound of right lower leg (Acute) Catheter-associated urinary tract infection Sepsis (Acute) Leg wound, right (Acute) Skin tear of left upper extremity (Acute) Chronic refractory osteomyelitis of ankle (Acute) Surgical wound, non healing (Acute) Osteomyelitis of ankle (Acute) Sepsis (Acute) Cellulitis of left lower leg (Acute) Chronic ulcer of right foot (Acute) HX: breast cancer Left breast cancer with surgery and chemo/radiation-left arm restriction Chronic anemia Paroxysmal atrial fibrillation Lower extremity edema (Chronic) Traumatic open wound of left lower leg with delayed healing (Acute) Ulcer of right ankle (Acute) Paroxysmal atrial fibrillation with RVR Hypotension Acute UTI (Acute) UTI (urinary tract infection) (Acute) Status post reverse total replacement of right shoulder (~04/2022) Encounter for pre-operative examination Closed right scapular fracture Sepsis Hypertension Multiple sclerosis Elevated troponin (Acute) Sepsis (Acute) Elevated troponin I level (Acute) Hypotension (Acute) Elevated lactic acid level (Acute) GERD (gastroesophageal reflux disease) controlled, stable per pt CAD (coronary artery disease) Non-obstructive per 06/2021 cardiac cath History of supraventricular tachycardia History of pulmonary embolism ~ 6 yrs ago, IVC filter still in place History of DVT (deep vein thrombosis) ~6 yrs ago Multiple sclerosis (Chronic) Follows with Dr. Walker/[facility] Stable Osteoporosis (Chronic) Neurogenic bladder (Chronic) SELF CATH 2-3 X'S PER DAY *RECENT HOSPITALIZATION FOR UTI Raynaud disease (Chronic) Presence of intrathecal pump (Chronic) baclofen pump in place--status post revision/replacement 08/10/2022 S/P IVC filter (Chronic) H/O left mastectomy (Chronic) with lymph node removal>LEFT ARM RESTRICTION History of open reduction and internal fixation (ORIF) procedure (Chronic) "left hip" S/P partial hysterectomy (Chronic) History of appendectomy (Chronic) Medical History Osteoarthritis of right knee Cellulitis of right lower extremity Anemia Cellulitis Acute leg pain Fever History of recent hospitalization 09/2022 [facility] - sepsis History of blood transfusion Limb alert care status left arm Osteoarthritis of right shoulder History of GI bleed Upper GIB (2019) felt 2/2 NSAID use History of non-ST elevation myocardial infarction (NSTEMI) 06/2021 (had heart cath, no stents) Hx of gastric ulcer 02/2021 Anemia Hypertension controlled, stable per pt Surgical History History of removal of Port-a-Cath (02/09/24) Mediport Removal(Right) - Tristin Lazo DO Port-A-Cath in place (09/29/23) A-Port Insertion, right internal jugular(Right) - Tristin Lazo DO S/p reverse total shoulder arthroplasty right: 05/25/22 LMA#4. No postop issues per anesthesia progress note. History of cardiac cath Cardiac cath (07/06/21; [facility]) > Right dominant coronary system. No evidence of aortic stenosis. Normal left ventricular filling pressures. Nonobstructive disease involving the ostial LAD. No evidence of acute coronary syndrome. Approximately 50% ostial stenosis of the LAD. There was some very mild disease at the ostium of the left circumflex. Recommendations: Medical management. History of esophagogastroduodenoscopy (EGD) History of colonoscopy History of tooth extraction Family History Mother Heart disorder Other No family history of adverse response to anesthesia Social History Smoking Status: Former smoker Tobacco Type: Cigarettes packs per day: 1; Cigarettes Per Day: stopped in 1977; Second Hand Exposure: No; Do You Dip or Chew Tobacco: No; Hx Alcohol Use: No Hx Substance Use: No Preferred Language: Latvian Communication Ability: Effective Visual Impairment: Limited Hearing Ability: Use of Hearing Aid Matchbook Assembler Required: No Beliefs That Will Affect Care: None marital status: / Current Living Situation: Alone Current Living Situation Comment: daughters are an hour away but check on her frequently per pt current occupational status: retired How many Children do You have: 3 Feels Safe at Home: Yes Childhood Exposure to Second-Hand Smoke: Yes Diet: regular caffeine: Yes Assistive Devices: Walker and Wheelchair Allergies Allergies Allergy/AdvReac Type Severity Reaction Status Date / Time No Known Allergies Allergy Verified 08/28/24 12:57 Home Meds Home Medications Medication Instructions Recorded Confirmed cholecalciferol (vitamin D3) 25 2,000 units PO QAM 09/18/18 10/01/24 mcg (1,000 unit) capsule escitalopram oxalate 20 mg tablet 20 mg PO QAM 09/18/18 10/01/24 (Lexapro) oxybutynin chloride 15 mg 15 mg PO QAM 09/18/18 10/01/24 tablet,extended release 24 hr prednisone 10 mg tablet 10 mg PO QAM 09/18/18 10/01/24 omeprazole 40 mg capsule,delayed 40 mg PO QAM 07/06/21 10/01/24 release teriflunomide 14 mg tablet 14 mg PO QPM 05/13/22 10/01/24 (Aubagio) doxycycline hyclate 50 mg capsule 50 mg PO Q2D Rosacea 08/10/22 10/01/24 melatonin 3 mg tablet 3 mg PO HS 03/05/23 10/01/24 multivitamin 1 tab PO DAILY 03/05/23 10/01/24 Baclofen Pump 0 mg SC DIRECTED 08/05/23 10/01/24 apixaban 5 mg tablet (Eliquis) 5 mg PO BID 02/03/24 10/01/24 atorvastatin 40 mg tablet 40 mg PO QAM 09/13/24 10/01/24 duloxetine 30 mg capsule,delayed 30 mg PO DAILY 09/13/24 10/01/24 release Previous Rx's Medication Instructions Recorded metoprolol succinate 25 mg 25 mg PO Q12 #60 tabs 04/19/24 tablet,extended release 24 hr tizanidine 4 mg tablet (Zanaflex) 4 mg PO Q6 Muscle Spasm #120 tabs 07/19/24 Results & Data (ED) Vital Signs Vital Signs - 24 hr 10/01/24 10:28 10/01/24 10:31 10/01/24 10:31 Temperature 38.2 C H Temperature Source Oral Pulse Rate 144 H Pulse Rate [Apical] Respiratory Rate 18 Respiratory Effort / Characteristics Respiratory Depth Blood Pressure 144/90 H Blood Pressure [Right Arm] Blood Pressure Mean 108 Blood Pressure Mean [Right Arm] Blood Pressure Position [Right Arm] Pulse Oximetry Oxygen Delivery Method Room Air Room Air Sepsis Recent Fever Within 48 Hours No Sepsis New/Unexplained Change in Mental Status N/A Sepsis Action Taken by Nursing Physician Notified 10/01/24 10:49 10/01/24 11:00 10/01/24 12:06 Temperature Temperature Source Pulse Rate Pulse Rate [Apical] 141 H 140 H Respiratory Rate 20 18 Respiratory Effort / Characteristics Non-Labored Spontaneous Respiratory Depth Normal Blood Pressure Blood Pressure [Right Arm] 103/68 90/72 L Blood Pressure Mean Blood Pressure Mean [Right Arm] 79 78 Blood Pressure Position [Right Arm] Semi-fowlers Pulse Oximetry 92 97 Oxygen Delivery Method Room Air Room Air Room Air Sepsis Recent Fever Within 48 Hours Sepsis New/Unexplained Change in Mental Status Sepsis Action Taken by Nursing 10/01/24 12:16 10/01/24 12:56 10/01/24 13:00 Temperature 37.6 C H Temperature Source Oral Pulse Rate 139 H Pulse Rate [Apical] 128 H 117 H Respiratory Rate 24 22 Respiratory Effort / Characteristics Respiratory Depth Blood Pressure Blood Pressure [Right Arm] 94/52 L 76/58 L Blood Pressure Mean Blood Pressure Mean [Right Arm] 66 64 Blood Pressure Position [Right Arm] Semi-fowlers Semi-fowlers Pulse Oximetry 94 94 Oxygen Delivery Method Room Air Room Air Sepsis Recent Fever Within 48 Hours Sepsis New/Unexplained Change in Mental Status Sepsis Action Taken by Nursing 10/01/24 13:00 Temperature Temperature Source Pulse Rate Pulse Rate [Apical] 129 H Respiratory Rate 14 Respiratory Effort / Characteristics Respiratory Depth Blood Pressure Blood Pressure [Right Arm] 76/58 L Blood Pressure Mean Blood Pressure Mean [Right Arm] 64 Blood Pressure Position [Right Arm] Pulse Oximetry 94 Oxygen Delivery Method Room Air Sepsis Recent Fever Within 48 Hours Sepsis New/Unexplained Change in Mental Status Sepsis Action Taken by Half-Way Medications Current Medication List: was personally reviewed by me Laboratory Data Attestation: I reviewed the patient's lab results. 10/01/24 11:28 10/01/24 11:28 Lab Results 10/01/24 10/01/24 10/01/24 Range/Units 11:28 11:35 13:11 WBC 13.43 H (4.8-10.8) K/ul RBC 3.98 L (4.20-5.40) M/uL Hgb 11.0 L (12.0-16.0) g/dl Hct 34.6 L (37.0-47.0) % MCV 86.9 (80.0-100.0) fL MCH 27.6 (25.0-34.0) pg MCHC 31.8 L (32.0-36.0) g/dL RDW Std Deviation 63.4 H (36.4-46.3) fL RDW Coeff of Tiffanie 19.9 H (11.5-14.5) % Plt Count 304 (130-400) K/uL MPV 10.6 (9.4-12.4) fL Immature Gran % (Auto) 0.4 % Neut % (Auto) 88.4 % Lymph % (Auto) 6.2 % Baxter % (Auto) 4.6 % Eos % (Auto) 0.1 % Baso % (Auto) 0.3 % Neut # (Auto) 11.87 H (1.40-6.50) K/uL Lymph # (Auto) 0.83 L (1.20-3.40) K/uL Baxter # (Auto) 0.62 H (0.11-0.59) K/uL Eos # (Auto) 0.02 (0.00-0.50) K/uL Baso # (Auto) 0.04 (0.00-0.20) K/uL Immature Gran # (Auto) 0.05 (0.01-0.20) K/uL PT 11.3 (9.0-12.0) Seconds INR 1.0 (0.9-1.1) APTT 24 (21-31) Seconds PTT Ratio 0.9 VBG pH 7.38 (7.36-7.41) VBG pCO2 50 (38-50) mmHg VBG pO2 < 20 mmHg VBG HCO3 30 mmol/L VBG O2 Saturation < 60.0 % VBG Base Excess 3.6 mEq/L Sodium 139 (136-145) mmol/L Potassium 3.6 (3.5-5.1) mmol/L Chloride 100 (98-107) mmol/L Carbon Dioxide 29 (21-32) mmol/L Anion Gap 10 (3-11) BUN 23 (6-23) mg/dl Creatinine 0.94 (0.6-1.2) mg/dl Est Cr Clr Drug Dosing 51.4 ml/min eGFR 64.87 BUN/Creatinine Ratio 24.5 H (10-20) Glucose 83 (70-99(Fasting)) mg/dl Lactate 3.4 H* (0.4-2.0) mmol/L Calcium 9.4 (8.6-10.3) mg/dl Magnesium 1.4 L (1.7-2.4) mg/dl Total Bilirubin 0.8 (0.2-1.0) mg/dl Direct Bilirubin 0.1 (0-0.2) mg/dl AST 26 (13-39) U/L ALT 19 (7-52) U/L Alkaline Phosphatase 48 (34-104) U/L Troponin I High Sens 228.3 H* (0-14) pg/ml Total Protein 6.7 (6.0-8.3) gm/dl Albumin 3.9 (3.4-5.0) gm/dl Procalcitonin 5.30 H (0-0.5) ng/ml Urine Color Yellow Urine Appearance Clear (Clear) Urine pH 5.5 (4.5-7.5) Ur Specific [place] > 1.045 H (1.000-1.030) Urine Protein 2+ H (Negative) Urine Glucose (UA) Negative (Negative) Urine Ketones Negative (Negative) Urine Blood 1+ H (Negative) Urine Nitrite Negative (Negative) Urine Bilirubin Negative (Negative) Urine Urobilinogen Negative (Negative) Ur Leukocyte Esterase 1+ H (Negative) Urine RBC 6-10 H (0-2) /hpf Urine WBC 11-20 H (0-5) /hpf Ur Epithelial Cells 3-5 H (0-2) /hpf Urine Bacteria None Seen (None Seen) SARS-CoV-2 (PCR) NEGATIVE (Negative) Influenza Type A (PCR) Negative (Neg) Influenza Type B (PCR) Negative (Neg) RSV (RT-PCR) Negative (Neg) Administered Medications Norepinephrine Bitartrate (Levophed/D5w) 4 mg in 250 mls @ 17.378 mls/hr IV .[id number] MICHELLE; Protocol Stop: 10/31/24 14:14 Last Titration: 10/01/24 14:37 Dose: 0.09 mcg/kg/min, 22.3 mls/hr Documented By: Titration: 10/01/24 14:26 Dose: 0.07 mcg/kg/min, 17.4 mls/hr Documented By: Admin: 10/01/24 14:10 Dose: 0.05 mcg/kg/min, 12.4 mls/hr Documented By: MMF Co-signed By: Discontinued Medications Hydrocortisone Sodium Succinate (Hydrocortisone Sod Succinate 100 Mg/2 Ml Vial) 100 mg IV NOW STA Stop: 10/01/24 13:37 Last Admin: 10/01/24 14:15 Dose: 100 mg Documented By: MMF Sodium Chloride (Nss) 1,000 mls @ 999 mls/hr IV .Q1H1M ONE Stop: 10/01/24 11:49 Last Admin: 10/01/24 11:56 Dose: 999 mls/hr Documented By: MMF Acetaminophen (Ofirmev) 1,000 mg in 100 mls @ 400 mls/hr IV NOW STA Stop: 10/01/24 11:03 Last Infusion: 10/01/24 12:15 Dose: Infused Documented By: Admin: 10/01/24 11:57 Dose: 400 mls/hr Documented By: MMF Cefepime HCl (Maxipime 2000mg) 2,000 mg in 20 mls @ 5 mls/min IV NOW STA; Protocol Stop: 10/01/24 11:01 Last Admin: 10/01/24 11:57 Dose: 5 mls/min Documented By: MMF Vancomycin HCl 1,500 mg/ (Sodium Chloride) 530 mls @ 200 mls/hr IV NOW ONE Stop: 10/01/24 13:53 Last Admin: 10/01/24 13:04 Dose: 200 mls/hr Documented By: MMF Sodium Chloride (Nss) 1,000 mls @ 999 mls/hr IV .Q1H1M ONE Stop: 10/01/24 12:52 Last Admin: 10/01/24 13:03 Dose: 999 mls/hr Documented By: DIGNA Magnesium Sulfate/Dextrose (Magnesium Sulfate / D5w) 1 gm in 100 mls @ 100 mls/hr IV Q1H MICHELLE Stop: 10/01/24 14:05 Last Admin: 10/01/24 14:19 Dose: 100 mls/hr Documented By: Infusion: 10/01/24 14:05 Dose: Infused Documented By: Admin: 10/01/24 13:05 Dose: 100 mls/hr Documented By: DIGNA Sodium Chloride (Nss) 1,000 mls @ 999 mls/hr IV .Q1H1M ONE Stop: 10/01/24 14:15 Last Admin: 10/01/24 14:07 Dose: 999 mls/hr Documented By: DIGNA Ioversol (Optiray 320 125ml) 119 ml IV ONCE ONE Stop: 10/01/24 12:33 Last Admin: 10/01/24 12:33 Dose: 119 ml Documented By: ANITHA Miscellaneous (Stat Iv Infusion Titration Per Protocol) 1 each N/A NOW STA Stop: 10/01/24 14:04 Last Admin: 10/01/24 14:25 Dose: Not Given Documented By: DIGNA Ondansetron HCl (Ondansetron Inj 2 Mg/Ml 2 Ml Vial) 4 mg IV NOW STA Stop: 10/01/24 10:50 Last Admin: 10/01/24 11:56 Dose: 4 mg Documented By: DIGNA Imaging Data Attestation: I personally reviewed and interpreted this imaging study as follows: My Impression: CT of the chest was obtained in the emergency department. My interpretation is no free air, hiatal hernia was noted, final report below. CT the brain was obtained in the emergency department. My interpretation is no intracranial hemorrhage or mass effect, final report below. CT of the abdomen and pelvis was obtained in the emergency department. My interpretation is no free air or signs of definite bowel obstruction, final report below. Radiologist's Impression: Abdomen/Pelvis CT 10/01/24 10:49 CT OF THE ABDOMEN AND PELVIS WITH CONTRAST CLINICAL HISTORY: fall COMPARISON STUDY: CTA with runoff August 23, 2024. TECHNIQUE: Following IV administration of Optiray, axial images of the abdomen and pelvis were obtained from the lung bases to the proximal femurs. Images were reviewed in the axial, sagittal, and coronal planes. IV contrast was administered without complication. Automated exposure control was utilized for the study. A dose lowering technique was utilized adhering to the principles of ALARA. CT DOSE: 5070.12 mGy.cm FINDINGS: Please note that the chest CT will be reported separately. IVC filter and intracanalicular catheter are incidentally noted. No hemoperitoneum or pneumoperitoneum is present. There is no evidence for somatic injury to the liver, spleen, adrenal glands, kidneys or pancreas. There are multiple renal cysts. There is no hydronephrosis. Caliber and wall thickness of small and large bowel are normal. A Zuñiga balloon within the bladder is noted. Bladder wall thickening is likely chronic. Moderate amount of stool within the rectum. Retroperitoneal collaterals are again noted. There is no ascites. Appearance of the left hip arthroplasty is intact. There are old nonunited right pubic ring fractures. No acute fractures within the lumbar spine, pelvis or hips are identified. There is an old S3 vertebral vertebral body fracture. Moderate-sized hiatal hernia. IMPRESSION: 1. No acute traumatic findings within the abdomen or pelvis. 2. No evidence for a bowel obstruction. Moderate amount of stool within the colon and rectum. 3. Hiatal hernia. 4. No acute fractures. ACT 112: Negative or not required by law. Electronically signed by: Scar Holden M.D. 10/01/2024 1:[address] 10/01/24 10:49 CT OF THE CERVICAL SPINE WITHOUT CONTRAST CLINICAL HISTORY: fall COMPARISON STUDY: MRI of the cervical spine July 19, 2024. TECHNIQUE: Helical axial images of the cervical spine were obtained without IV contrast. Sagittal and coronal reconstructions were viewed. Automated exposure control was utilized for the study. A dose lowering technique was utilized adhering to the principles of ALARA. FINDINGS: This exam is mildly compromised by artifact. No acute cervical spine fractures are identified. Mild anterolisthesis of C4 on C5 and C7 on T1 and mild retrolisthesis of C3 on C4 is unchanged MRI of July 19, 2024. Moderate to severe multilevel degenerative changes within the lumbar spine are again noted. There is no prevertebral edema. IMPRESSION: 1. No acute cervical spine fracture or subluxation. Exam mildly compromised by motion artifact. 2. Moderate to severe multilevel degenerative disc disease and facet arthrosis within the cervical spine. ACT 112: Negative or not required by law. Electronically signed by: Scar Holden M.D. 10/01/2024 1:00 PM Chest CTA 10/01/24 10:49 CT angio chest PE protocol HISTORY: 73 years-old Female with PE. Acute shortness of breath with chest pain status post fall TECHNIQUE: Multiple CTA images of the chest were obtained after the intravenous administration of 119 ml Optiray. Coronal and sagittal MIPS were obtained from the axial data set and were submitted for review. All measurements were obtained according to NASCET criteria. A dose lowering technique was utilized adhering to the principles of ALARA. COMPARISON: CT abdomen and pelvis of same day, CTA chest 06/20/2017 FINDINGS: Limited exam secondary to positioning and respiratory motion artifact. CTA: Mild cardiomegaly with small pericardial effusion. Moderate coronary artery calcifications. No thoracic aortic aneurysm or dissection. No pulmonary emboli identified. CT CHEST: No dominant thyroid nodule or lymphadenopathy identified. Subsegmental bibasilar opacities are likely atelectatic. No pneumothorax or pleural effusion. Mild linear scarring of left upper lobe. No suspicious pulmonary nodules or masses. Central airways are patent. Mid to distal esophageal wall thickening with moderate sized hiatal hernia. Left nephrolithiasis. Bilateral renal cysts. Right shoulder arthroplasty. No acute displaced rib fracture identified. Mild chronic mid to inferior sternal body fracture. Partially imaged catheter within the central canal terminating at the level of the mid thoracic spine. Subacute appearing comminuted fracture of the left glenoid with adjacent corticated bone fragments. Heterogeneous attenuation is noted along the anteroinferior margin of the left glenohumeral joint measuring up to 8 cm which may represent a complex joint effusion. CT abdomen and pelvis dictated separately. IMPRESSION: 1. No acute displaced rib fracture or pneumothorax. 2. Esophageal wall thickening with moderate sized hiatal hernia. 3. Subacute appearing left glenoid fracture with large focus of heterogeneous attenuation along the inferior margin of the glenohumeral joint likely representing a complex joint effusion. 4. No pulmonary emboli identified. 5. Please refer to the CT abdomen and pelvis study of same day for additional findings. ACT 112: Negative or not required by law. The above report was generated using voice recognition software. It may contain grammatical, syntax or spelling errors. Electronically signed by: Nasir Mccauley M.D. 10/01/2024 1:25 PM Chest X-Ray 10/01/24 10:49 XR chest 1V portable HISTORY: 73 years-old Female Sepsis COMPARISON: 09/13/2024 TECHNIQUE: AP view the chest FINDINGS: Cardiac silhouette is enlarged. Reverse right shoulder arthroplasty. No pneumothorax, pleural effusion or airspace consolidation. Bones appear grossly intact with sigmoidal thoracolumbar scoliosis. Left axillary surgical clips. IMPRESSION: Cardiomegaly without acute process. ACT 112: Negative or not required by law. The above report was generated using voice recognition software. It may contain grammatical, syntax or spelling errors. Electronically signed by: Nasir Mccauley M.D. 10/01/2024 11:[address] 10/01/24 10:[address] WITHOUT CONTRAST CLINICAL HISTORY: fall COMPARISON STUDY: Head CT August 07, 2023. TECHNIQUE: A maxillofacial CT was performed without IV contrast. Coronal and sagittal reformats were viewed. Automated exposure control was utilized for the study. A dose lowering technique was utilized adhering to the principles of ALARA. FINDINGS: This exam is mildly compromised by motion artifact. There is a right periorbital contusion. The right globe is intact. There is no retrobulbar hematoma. There are no acute facial fractures. Orbital floors are intact. There is mild ethmoid sinus mucosal thickening. Alignment of the temporomandibular joints is anatomic. No skull base fracture is present. IMPRESSION: 1. No acute facial fractures. Exam mildly compromised by motion artifact. 2. Right periorbital contusion. Right globe intact. No retrobulbar hematoma. ACT 112: Negative or not required by law. Electronically signed by: Scar Holden M.D. 10/01/2024 12:[address] 10/01/24 10:49 CT head/brain wo con CLINICAL HISTORY: 73 years-old Female with fall. Acute facial trauma status post fall TECHNIQUE: Multiple axial CT images of the head were obtained without contrast. A dose lowering technique was utilized adhering to the principles of ALARA. COMPARISON: 08/07/2023 FINDINGS: No acute intracranial hemorrhage, midline shift, intracranial mass, hydrocephalus, territorial ischemia or abnormal extra-axial collection. Motion degraded exam. Involutional changes with chronic microvascular ischemic disease. The calvarium is intact. Partially imaged right periorbital contusion. Mild mucosal thickening of the paranasal sinuses. Mastoid air cells are clear. IMPRESSION: 1. Motion degraded exam without acute intracranial abnormality or calvarial fracture identified. 2. Right periorbital contusion. ACT 112: Negative or not required by law. The above report was generated using voice recognition software. It may contain grammatical, syntax or spelling errors. Electronically signed by: Nasir Mccauley M.D. 10/01/2024 1:07 PM Discharge Plan Visit Data Chief Complaint: Trauma Stated Complaint: FALL, BLACK EYE ED Provider: Louis Vieira Discharge Problem: Sepsis, Elevated lactic acid level, Cellulitis, Fall, Head injury, Contusion of face, Elevated troponin I level Patient Disposition: Admitted As Inpatient Discharge Instructions Interventions: ED Discharge Assessment Last Done: 10/01/24 14:46 Discharge Problem: Sepsis Qualifiers: Sepsis type: sepsis due to unspecified organism Sepsis acute organ dysfunction status: unspecified Qualified Code(s): A41.9 - Sepsis, unspecified organism Cellulitis Qualifiers: Site of cellulitis: extremity Site of cellulitis of extremity: lower extremity Laterality: right Qualified Code(s): L03.115 - Cellulitis of right lower limb Fall Qualifiers: Encounter type: initial encounter Qualified Code(s): W19.XXXA - Unspecified fall, initial encounter Head injury Qualifiers: Encounter type: initial encounter Qualified Code(s): S09.90XA - Unspecified injury of head, initial encounter Contusion of face Qualifiers: Encounter type: initial encounter Qualified Code(s): S00.83XA - Contusion of other part of head, initial encounter
[2024-10-01] MEDS ORDERED: VANCOMYCIN 1,500 MG in D5W 500mL (Use w/ NSS Shortage) IV ONE (11:15)
--- NOTE | 2024-10-01 11:19 | XRay Report ---
XR chest 1V portable HISTORY: 73 years-old Female Sepsis COMPARISON: 09/13/2024 TECHNIQUE: AP view the chest FINDINGS: Cardiac silhouette is enlarged. Reverse right shoulder arthroplasty. No pneumothorax, pleural effusio n or airspace consolidation. Bones appear grossly intact with sigmoidal thoracolumbar scoliosis. Left axillary surgical clips. IMPRESSION: Cardiomegaly without acute process. ACT 112: Negative or not required by law. The above report was generated using voice recognition software. It may contain grammatical, syntax o r spelling errors. Electronically signed by: Nasir Mccauley M.D. 10/01/2024 11:17 AM
[2024-10-01 11:43] LABS: Base Excess VBG 3.6 mEq/L; HCO3 VBG 30 mmol/L; Oxygen Saturation VBG < 60.0 %; PCO2 VBG 50 mmHg (38-50); PO2 VBG < 20 mmHg; pH VBG 7.38 (7.36-7.41)
[2024-10-01 11:50] LABS: Basophils # (auto) 0.04 K/uL (0.00-0.20); Basophils % (auto) 0.3 %; Eosinophils # (auto) 0.02 K/uL (0.00-0.50); Eosinophils % (auto) 0.1 %; Hematocrit (blood only) 34.6 % (37.0-47.0); Immature Granulocytes # (auto) 0.05 K/uL (0.01-0.20); Immature Granulocytes % (auto) 0.4 %; Lymphocytes # (auto) 0.83 K/uL (1.20-3.40); Lymphocytes % (auto) 6.2 %; Mean Corpuscular Hemoglobin 27.6 pg (25.0-34.0); Mean Corpuscular Hgb Conc 31.8 g/dL (32.0-36.0); Mean Corpuscular Volume 86.9 fL (80.0-100.0); Mean Platelet Volume 10.6 fL (9.4-12.4); Monocytes # (auto) 0.62 K/uL (0.11-0.59); Monocytes % (auto) 4.6 %; Neutrophils # (auto) 11.87 K/uL (1.40-6.50); Neutrophils % (auto) 88.4 %; Platelet Count 304 K/uL (130-400); RDW Coefficient of Variation 19.9 % (11.5-14.5); RDW Standard Deviation 63.4 fL (36.4-46.3); Red Blood Count 3.98 M/uL (4.20-5.40); White Blood Count 13.43 K/ul (4.8-10.8)
[2024-10-01] MEDS: ONDANSETRON INJ 2 MG/ML 2 ML VIAL IV STA (11:56)
[2024-10-01] MEDS: SODIUM CHLORIDE 0.9% 1,000 ML IV ONE ×3 (11:56→14:07)
[2024-10-01] MEDS: ACETAMINOPHEN 1,000 MG/100 ML VIAL IV STA (11:57)
[2024-10-01] MEDS: CEFEPIME 2000MG 2,000 MG/20 ML SYR IV STA (11:57)
[2024-10-01 12:04] LABS: Albumin Level 3.9 gm/dl (3.4-5.0); BUN Creatinine Ratio 24.5 (10-20); Bilirubin Direct 0.1 mg/dl (0-0.2); Bilirubin,Total 0.8 mg/dl (0.2-1.0); Calcium 9.4 mg/dl (8.6-10.3); Creatinine Clr Calc Pharmacy 51.4 ml/min; Magnesium 1.4 mg/dl (1.7-2.4); Potassium 3.6 mmol/L (3.5-5.1); Total Protein 6.7 gm/dl (6.0-8.3)
[2024-10-01 12:12] LABS: Troponin I High Sensitivity 228.3 pg/ml (0-14)
[2024-10-01 12:18] LABS: Partial Thromboplastin Ratio 0.9; Partial Thromboplastin Time 24 Seconds (21-31); Prothrombin Time 11.3 Seconds (9.0-12.0)
[2024-10-01 12:26] LABS: Influenza A virus by PCR Negative (Neg); Influenza B virus by PCR Negative (Neg); RSV by PCR Negative (Neg); SARS CoV2 RNA(COVID-19) Ceph NEGATIVE (Negative)
[2024-10-01] MEDS: OPTIRAY 320 125ml IV ONE (12:33)
--- NOTE | 2024-10-01 12:59 | CT Scan Report ---
MAXILLOFACIAL CT WITHOUT CONTRAST CLINICAL HISTORY: fall COMPARISON STUDY: Head CT August 07, 2023. TECHNIQUE: A maxillofacial CT was performed without IV contrast. Coronal and sagittal reformats were viewed. Automated exposure control was utilized for the study. A dose lowering technique was utiliz ed adhering to the principles of ALARA. FINDINGS: This exam is mildly compromised by motion artifact. There is a right periorbital contusion. The right globe is intact. There is no retrobulbar hematoma. There are no acute facial fractures. Or bital floors are intact. There is mild ethmoid sinus mucosal thickening. Alignment of the temporomand ibular joints is anatomic. No skull base fracture is present. IMPRESSION: 1. No acute facial fractures. Exam mildly compromised by motion artifact. 2. Right periorbital contusion. Right globe intact. No retrobulbar hematoma. ACT 112: Negative or not required by law. Electronically signed by: Scar Holden M.D. 10/01/2024 12:57 PM
--- NOTE | 2024-10-01 13:03 | CT Scan Report ---
CT OF THE CERVICAL SPINE WITHOUT CONTRAST CLINICAL HISTORY: fall COMPARISON STUDY: MRI of the cervical spine July 19, 2024. TECHNIQUE: Helical axial images of the cervical spine were obtained without IV contrast. Sagittal a nd coronal reconstructions were viewed. Automated exposure control was utilized for the study. A do se lowering technique was utilized adhering to the principles of ALARA. FINDINGS: This exam is mildly compromised by artifact. No acute cervical spine fractures are identifi ed. Mild anterolisthesis of C4 on C5 and C7 on T1 and mild retrolisthesis of C3 on C4 is unchanged MR I of July 19, 2024. Moderate to severe multilevel degenerative changes within the lumbar spine are again noted. There is no prevertebral edema. IMPRESSION: 1. No acute cervical spine fracture or subluxation. Exam mildly compromised by motion artifact. 2. Moderate to severe multilevel degenerative disc disease and facet arthrosis within the cervical sp ine. ACT 112: Negative or not required by law. Electronically signed by: Scar Holden M.D. 10/01/2024 1:00 PM
[2024-10-01] MEDS: VANCOMYCIN HCL 1,500 MG in SODIUM CHLORIDE 0.9% 500 ML IV ONE (13:04)
[2024-10-01] MEDS: MAGNESIUM SULFATE / D5W 1 GM/100 ML BAG IV SCH (13:05)
--- NOTE | 2024-10-01 13:08 | CT Scan Report ---
CT head/brain wo con CLINICAL HISTORY: 73 years-old Female with fall. Acute facial trauma status post fall TECHNIQUE: Multiple axial CT images of the head were obtained without contrast. A dose lowering tech nique was utilized adhering to the principles of ALARA. COMPARISON: 08/07/2023 FINDINGS: No acute intracranial hemorrhage, midline shift, intracranial mass, hydrocephalus, territorial ischem ia or abnormal extra-axial collection. Motion degraded exam. Involutional changes with chronic microv ascular ischemic disease. The calvarium is intact. Partially imaged right periorbital contusion. Mild mucosal thickening of the paranasal sinuses. Mastoid air cells are clear. IMPRESSION: 1. Motion degraded exam without acute intracranial abnormality or calvarial fracture identified. 2. Right periorbital contusion. ACT 112: Negative or not required by law. The above report was generated using voice recognition software. It may contain grammatical, syntax o r spelling errors. Electronically signed by: Nasir Mccauley M.D. 10/01/2024 1:07 PM
--- NOTE | 2024-10-01 13:16 | CT Scan Report ---
CT OF THE ABDOMEN AND PELVIS WITH CONTRAST CLINICAL HISTORY: fall COMPARISON STUDY: CTA with runoff August 23, 2024. TECHNIQUE: Following IV administration of Optiray, axial images of the abdomen and pelvis were obtain ed from the lung bases to the proximal femurs. Images were reviewed in the axial, sagittal, and coron al planes. IV contrast was administered without complication. Automated exposure control was utilize d for the study. A dose lowering technique was utilized adhering to the principles of ALARA. CT DOSE: 5070.12 mGy.cm FINDINGS: Please note that the chest CT will be reported separately. IVC filter and intracanalicular catheter are incidentally noted. No hemoperitoneum or pneumoperitoneum is present. There is no eviden ce for somatic injury to the liver, spleen, adrenal glands, kidneys or pancreas. There are multiple r enal cysts. There is no hydronephrosis. Caliber and wall thickness of small and large bowel are jenn l. A Zuñiga balloon within the bladder is noted. Bladder wall thickening is likely chronic. Moderate a mount of stool within the rectum. Retroperitoneal collaterals are again noted. There is no ascites. A ppearance of the left hip arthroplasty is intact. There are old nonunited right pubic ring fractures. No acute fractures within the lumbar spine, pelvis or hips are identified. There is an old S3 verteb ral vertebral body fracture. Moderate-sized hiatal hernia. IMPRESSION: 1. No acute traumatic findings within the abdomen or pelvis. 2. No evidence for a bowel obstruction. Moderate amount of stool within the colon and rectum. 3. Hiatal hernia. 4. No acute fractures. ACT 112: Negative or not required by law. Electronically signed by: Scar Holden M.D. 10/01/2024 1:14 PM
--- NOTE | 2024-10-01 13:26 | CT Scan Report ---
CT angio chest PE protocol HISTORY: 73 years-old Female with PE. Acute shortness of breath with chest pain status post fall TECHNIQUE: Multiple CTA images of the chest were obtained after the intravenous administration of 119 ml Optiray. Coronal and sagittal MIPS were obtained from the axial data set and were submitted for review. All measurements were obtained according to NASCET criteria. A dose lowering technique was u tilized adhering to the principles of ALARA. COMPARISON: CT abdomen and pelvis of same day, CTA chest 06/20/2017 FINDINGS: Limited exam secondary to positioning and respiratory motion artifact. CTA: Mild cardiomegaly with small pericardial effusion. Moderate coronary artery calcifications. No thorac ic aortic aneurysm or dissection. No pulmonary emboli identified. CT CHEST: No dominant thyroid nodule or lymphadenopathy identified. Subsegmental bibasilar opacities are likely atelectatic. No pneumothorax or pleural effusion. Mild linear scarring of left upper lobe. No suspic ious pulmonary nodules or masses. Central airways are patent. Mid to distal esophageal wall thickenin g with moderate sized hiatal hernia. Left nephrolithiasis. Bilateral renal cysts. Right shoulder arth roplasty. No acute displaced rib fracture identified. Mild chronic mid to inferior sternal body fract ure. Partially imaged catheter within the central canal terminating at the level of the mid thoracic spine. Subacute appearing comminuted fracture of the left glenoid with adjacent corticated bone fragm ents. Heterogeneous attenuation is noted along the anteroinferior margin of the left glenohumeral mahendra nt measuring up to 8 cm which may represent a complex joint effusion. CT abdomen and pelvis dictated separately. IMPRESSION: 1. No acute displaced rib fracture or pneumothorax. 2. Esophageal wall thickening with moderate sized hiatal hernia. 3. Subacute appearing left glenoid fracture with large focus of heterogeneous attenuation along the i nferior margin of the glenohumeral joint likely representing a complex joint effusion. 4. No pulmonary emboli identified. 5. Please refer to the CT abdomen and pelvis study of same day for additional findings. ACT 112: Negative or not required by law. The above report was generated using voice recognition software. It may contain grammatical, syntax o r spelling errors. Electronically signed by: Nasir Mccauley M.D. 10/01/2024 1:25 PM
[2024-10-01 13:55] LABS: Appearance Urine Clear (Clear); Bilirubin Urine Negative (Negative); Blood Urine 1+ (Negative); Color Urine Yellow; Glucose Urine UA Negative (Negative); Ketones Urine Negative (Negative); Leukocyte Esterase Urine 1+ (Negative); Nitrite Urine Negative (Negative); Protein Urine 2+ (Negative); Specific Gravity Urine > 1.045 (1.000-1.030); Urobilinogen Urine Negative (Negative); pH Urine 5.5 (4.5-7.5)
[2024-10-01] MEDS: NOREPINEPHRINE/D5W 4 MG/250 ML PLCT IV SCH (14:10)
[2024-10-01 14:12] LABS: Bacteria Urine None Seen (None Seen)
[2024-10-01] MEDS: HYDROCORTISONE SOD SUCCINATE 100 MG/2 ML VIAL IV STA (14:15)
[2024-10-01] MEDS: STAT IV Infusion **Titration per Protocol STA (14:25)
--- NOTE | 2024-10-01 14:41 | Critical Care Consultation ---
Date of Consultation October 01, 2024 Assessment & Plan (1) Contusion of face: (2) Cellulitis: (3) Shock circulatory: (4) Paroxysmal atrial fibrillation: (5) Breast cancer: (6) Multiple sclerosis: (7) Elevated troponin: (8) S/P IVC filter: Plan Reason Critically Ill: 73-year-old female presented to the hospital with septic shock, transferred to the ICU for vasopressor support Past medical history: Coronary artery disease, history of PE/paroxysmal A-fib on Eliquis, hypertension, dyslipidemia, left-sided breast cancer status postsurgery and radiation, on chronic prednisone for MS Neuro - [facility] ICU: Negative --Multiple sclerosis Primary progressive with bilateral optic nerve involvement On chronic 10mg prednisone along with Aubagio Cardiac - -- Septic shock Source could be urine Continue vasopressor support to keep MAP greater than 65 -- Elevated troponin Likely type II [place] EKG 10/01/2024 10:49 AM: Sinus tachycardia, normal axis, no ST changes, acute T waves appreciated on the lateral leads, PVCs, -- History of nonobstructive coronary artery disease and dyslipidemia On metoprolol at home Respiratory - -- No acute issues Saturating well on room air CT chest 10/01/2024 personally reviewed: Minimal bilateral apical pleural scarring Motion degraded study Moderate hiatal hernia No significant mediastinal lymphadenopathy GI - No acute issues RENAL/LYTES - -- Monitor BUNs/creatinine Avoid nephrotoxic medication - -- Self catheterizes every night ENDO - --ICU hypoglycemia protocol HEME - -- Chronic anemia normocytic Monitor H&H ID - -- Septic shock Source is UTI Follow-up blood culture Continue with empiric antibiotics with gram-negative coverage --Prophylaxis VTE: Eliquis GI:[] Lines: Femoral Diet: N.p.o. Plan: Strict in and out I am not certain if the source is cellulitis, extremities are cool to touch, there is cyanotic hue of bilateral lower extremities, could be from being on vasopressors Given that patient is on prednisone 10 mg on a daily basis. She will be considered immunosuppressed. Will give stress dose hydrocortisone Follow-up nasal MRSA. For the time being continue with MRSA coverage as well. I have personally spent 62 minutes of critical care time in the direct management of this patient. This is a life/limb threatening event. This includes time spent evaluating patient, direct bedside care, chart review, placing orders, interpretation of diagnostic studies, discussion with consultants, patient, and family members, as well as other required patient management activities. This time is exclusive of all separately billable procedures, and teaching time and separate from and in addition to any other critical care service time. History of Present Illness History of Present Illness 73-year-old female presented to the hospital with septic shock Past medical history: Coronary artery disease, history of PE/paroxysmal A-fib on Eliquis, hypertension, dyslipidemia, left-sided breast cancer status postsurgery and radiation, on chronic prednisone for MS The patient was transferred to the ICU for further management At the time of examination patient was not in any respiratory distress She was on low-dose Levophed MAP was 65-66. Heart rate in the low 100s. Respiratory rate in the high teens She denied any abdominal pain. No nausea or vomiting She stated that she was feeling weak since last couple of days. She is not sure if she had a mechanical fall versus syncope. Denies any headache, does complain of chronic blurry vision. No shortness of breath, no chest pain, no dizziness or palpitation at that time No dysuria or diarrhea Social history: Non-smoker Allergies Allergy/AdvReac Type Severity Reaction Status Date / Time No Known Allergies Allergy Verified 08/28/24 12:57 Home Medications Medication Instructions Recorded Confirmed Type cholecalciferol (vitamin D3) 25 2,000 units PO QAM 09/18/18 10/01/24 History mcg (1,000 unit) capsule escitalopram oxalate 20 mg tablet 20 mg PO QAM 09/18/18 10/01/24 History (Lexapro) oxybutynin chloride 15 mg 15 mg PO QAM 09/18/18 10/01/24 History tablet,extended release 24 hr prednisone 10 mg tablet 10 mg PO QAM 09/18/18 10/01/24 History omeprazole 40 mg capsule,delayed 40 mg PO QAM 07/06/21 10/01/24 History release teriflunomide 14 mg tablet 14 mg PO QPM 05/13/22 10/01/24 History (Aubagio) doxycycline hyclate 50 mg capsule 50 mg PO Q2D Rosacea 08/10/22 10/01/24 History melatonin 3 mg tablet 3 mg PO HS 03/05/23 10/01/24 History multivitamin 1 tab PO DAILY 03/05/23 10/01/24 History Baclofen Pump 0 mg SC DIRECTED 08/05/23 10/01/24 History apixaban 5 mg tablet (Eliquis) 5 mg PO BID 02/03/24 10/01/24 History atorvastatin 40 mg tablet 40 mg PO QAM 09/13/24 10/01/24 History duloxetine 30 mg capsule,delayed 30 mg PO DAILY 09/13/24 10/01/24 History release metoprolol succinate 25 mg 25 mg PO BID 10/01/24 10/01/24 History tablet,extended release 24 hr tizanidine 4 mg tablet (Zanaflex) 4 mg PO Q6H PRN Muscle Spasm 10/01/24 10/01/24 History Patient History Medical History Osteoarthritis of right knee Cellulitis of right lower extremity Anemia Cellulitis Acute leg pain Fever History of recent hospitalization 09/2022 [facility] - sepsis History of blood transfusion Limb alert care status left arm Osteoarthritis of right shoulder History of GI bleed Upper GIB (2019) felt 2/2 NSAID use History of non-ST elevation myocardial infarction (NSTEMI) 06/2021 (had heart cath, no stents) Hx of gastric ulcer 02/2021 Anemia Hypertension controlled, stable per pt Surgical History History of removal of Port-a-Cath (02/09/24) Mediport Removal(Right) - Tristin Lazo DO Port-A-Cath in place (09/29/23) A-Port Insertion, right internal jugular(Right) - Tristin Lazo DO S/p reverse total shoulder arthroplasty right: 05/25/22 LMA#4. No postop issues per anesthesia progress note. History of cardiac cath Cardiac cath (07/06/21; [facility]) > Right dominant coronary system. No evidence of aortic stenosis. Normal left ventricular filling pressures. Nonobstructive disease involving the ostial LAD. No evidence of acute coronary syndrome. Approximately 50% ostial stenosis of the LAD. There was some very mild disease at the ostium of the left circumflex. Recommendations: Medical management. History of esophagogastroduodenoscopy (EGD) History of colonoscopy History of tooth extraction Family History Mother Heart disorder Other No family history of adverse response to anesthesia Social History Smoking Status: Former smoker Tobacco Type: Cigarettes packs per day: 1; Cigarettes Per Day: stopped in 1977; Second Hand Exposure: No; Do You Dip or Chew Tobacco: No; Tobacco Cessation Education Requested by Patient: No Hx Alcohol Use: No Hx Substance Use: No Preferred Language: Occitan Communication Ability: Effective Visual Impairment: Limited Hearing Ability: Use of Hearing Aid [employer] Required: No Beliefs That Will Affect Care: None marital status: / Current Living Situation: Alone Current Living Situation Comment: daughters are an hour away but check on her frequently per pt current occupational status: retired How many Children do You have: 3 Other Information That Helps Us Care for You: No Feels Safe at Home: Yes Safety Concerns: Feels Safe At This Time Childhood Exposure to Second-Hand Smoke: Yes Diet: regular caffeine: Yes Assistive Devices: Glasses, Hearing Aid - Bilateral, Walker and Wheelchair Review of Systems 2 Review of Systems: All systems reviewed & are unremarkable except as noted in HPI & below Physical Exam 2 Physical Exam: Constitutional: No acute distress HEENT: EOMI, PERRLA, right periorbital bruising Respiratory system: Decreased air entry bilaterally, no wheeze, no rhonchi, positive crackles bilateral lower lobes CVS: S1-S2 positive, positive 3 out of 6 systolic murmur appreciated best at left parasternal border Abdomen: Soft, nontender, nondistended, positive bowel sounds x4 Extremities: +2 pulses bilaterally radialis/ dorsalis pedis, no cyanosis, +1 pitting edema bilateral lower extremity, cold extremities, there is cyanotic pigmentation of bilateral lower extremities, right greater than left Neuro: Awake alert oriented x3 Psych: Normal mood and affect G/U: Positive Zuñiga Skin: no rashes, warm and dry Lymphatic: no cervical or axillary lymphadenopathy Results & Data Results & Data Vital Signs (Past 12 Hours) Vital Signs Temp Pulse Pulse Resp BP BP Pulse Ox 10/01/24 14:36 111 H 14 89/68 L 99 10/01/24 14:33 105 H 15 98/59 L 95 10/01/24 14:26 114 H 12 84/54 L 99 10/01/24 14:25 113 H 15 68/46 L 96 10/01/24 14:21 109 H 16 77/40 L 95 10/01/24 14:16 121 H 14 70/55 L 96 10/01/24 14:09 118 H 20 72/47 L 10/01/24 13:00 129 H 14 76/58 L 94 10/01/24 13:00 117 H 22 76/58 L 94 10/01/24 12:56 37.6 C H 128 H 24 94/52 L 94 10/01/24 12:16 139 H 10/01/24 12:06 140 H 18 90/72 L 97 10/01/24 11:00 141 H 20 103/68 92 10/01/24 10:49 10/01/24 10:31 10/01/24 10:31 10/01/24 10:28 38.2 C H 144 H 18 144/90 H O2 Del Method 10/01/24 14:36 Room Air 10/01/24 14:33 Room Air 10/01/24 14:26 Room Air 10/01/24 14:25 Room Air 10/01/24 14:21 Room Air 10/01/24 14:16 Room Air 10/01/24 14:09 10/01/24 13:00 Room Air 10/01/24 13:00 Room Air 10/01/24 12:56 Room Air 10/01/24 12:16 10/01/24 12:06 Room Air 10/01/24 11:00 Room Air 10/01/24 10:49 Room Air 10/01/24 10:31 Room Air 10/01/24 10:31 Room Air 10/01/24 10:28 Laboratory Results 10/01/24 11:28 10/01/24 11:28 Coding Level of Care Code 38585 CRITICAL CARE 1ST 30-74M Diagnoses Contusion of face S00.83XA Encounter type: initial encounter Cellulitis L03.115 Laterality: right Site of cellulitis: extremity Site of cellulitis of extremity: lower extremity Shock circulatory R57.9 Paroxysmal atrial fibrillation I48.0 Breast cancer C50.919 Multiple sclerosis G35 Elevated troponin R77.8 S/P IVC filter Z95.828 (1) Contusion of face Encounter type: initial encounter Qualified Code(s): S00.83XA - Contusion of other part of head, initial encounter (2) Cellulitis Laterality: right Site of cellulitis: extremity Site of cellulitis of extremity: lower extremity Qualified Code(s): L03.115 - Cellulitis of right lower limb
--- NOTE | 2024-10-01 14:42 | History & Physical Report ---
Date of Service October 01, 2024 Assessment & Plan (1) Septic shock: (2) Lower extremity cellulitis: Plan: Kandy Shelby is a 73y/o F with PMHx significant for CAD, HTN, HLD, PAF, PSVT, nonrheumatic aortic valve stenosis, Raynaud's syndrome, history ESBL E. coli UTI, prior DVT with pulmonary emboli s/p IVC filter placement [on Eliquis], GERD with esophagitis, protein-calorie malnutrition, neurogenic bladder, multiple sclerosis [on chronic prednisone + Aubagio], polyneuropathy with chronic pain on Baclofen pump, tobacco use, anemia of chronic disease [baseline Hgb ~9-10], depression with anxiety, sicca syndrome, history of nonmelanoma skin cancer s/p Mohs operation, left breast cancer s/p radiation + surgery, rosacea [on doxycycline], right foot drop, bilateral lower extremity venous stasis, chronic osteomyelitis of the right fibula, chronic right lateral ankle wound and recurrent right lower extremity cellulitis who presented to the ED after a fall. SEPTIC SHOCK RIGHT LOWER EXTREMITY CELLULITIS CHRONIC PREDNISONE USE, MULTIPLE SCLEROSIS admitted to ICU Levophed drip Hydrocortisone IV q6h lactic acid 3.4 given 3 L NSS repeat 1.6 blood culture: pending urine culture: pending CT chest: questionable LL lower lobe infiltrate? large focus of heterogeneous attenuation along the inferior margin of the glenohumeral joint likely representing a complex joint effusion. 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 She follows with Dr. Andrea Walker at [facility], [facility]. Patient is on chronic prednisone therapy in addition to Aubagio. Anemia of Chronic Disease: Hgb stable, baseline Hgb ~9-10 per chart review. Chronic Back Pain: Patient with an indwelling intrathecal Baclofen pump in place [employer]. Has seen [facility] for pump checks previously. Other Chronic Medical Conditions: GERD, depression with anxiety, polyneuropathy Code Status Full Code as per patient plan of care discussed with patient and her daughter Paula over the phone in detail and at length all questions answered they are understanding, agreeable, comfortable with the plan of care History of Present Illness Primary Care Provider: KEVIN Lema Kandy Shelby is a 73y/o F with PMHx significant for CAD, HTN, HLD, PAF, PSVT, nonrheumatic aortic valve stenosis, Raynaud's syndrome, history ESBL E. coli UTI, prior DVT with pulmonary emboli s/p IVC filter placement [on Eliquis], GERD with esophagitis, protein-calorie malnutrition, neurogenic bladder, multiple sclerosis [on chronic prednisone + Aubagio], polyneuropathy with chronic pain on Baclofen pump, tobacco use, anemia of chronic disease [baseline Hgb ~9-10], depression with anxiety, sicca syndrome, history of nonmelanoma skin cancer s/p Mohs operation, left breast cancer s/p radiation + surgery, rosacea [on doxycycline], right foot drop, bilateral lower extremity venous stasis, chronic osteomyelitis of the right fibula, chronic right lateral ankle wound and recurrent right lower extremity cellulitis who presented to the ED after a fall. Patient was discharged from [facility] recently last September 18, 2024 after being admitted for lower extremity cellulitis. ID was consulted and recommended a course of Cephalexin PO. As per patient, she finished the course of Cephalexin and was feeling fine. Yesterday, patient states she started to feel weak and dizzy. She stood up, felt dizzy and while walking, fell on the floor hitting the right side of her face. Denies chest pain, shortness of breath, nausea, abdominal pain, problems with urination or bowel movement. At the ER, patient was admitted with systolic BP in the 100s, HR 140s, Temp 38.2. Her blood pressure was noted to be decreasing while at the ER, down to systolic 70s. She was given total of 3 L NSS, Hydrocortisone IV and was started on Levophed via a femoral line. On exam, patient was awake, alert, oriented, answering questions appropriately. She denies lower extremity pain, headache, chest pain, shortness of breath, abdominal pain. Allergies Allergy/AdvReac Type Severity Reaction Status Date / Time No Known Allergies Allergy Verified 08/28/24 12:57 Home Medications Medication Instructions Recorded Confirmed Type cholecalciferol (vitamin D3) 25 2,000 units PO QAM 09/18/18 10/01/24 History mcg (1,000 unit) capsule escitalopram oxalate 20 mg tablet 20 mg PO QAM 09/18/18 10/01/24 History (Lexapro) oxybutynin chloride 15 mg 15 mg PO QAM 09/18/18 10/01/24 History tablet,extended release 24 hr prednisone 10 mg tablet 10 mg PO QAM 09/18/18 10/01/24 History omeprazole 40 mg capsule,delayed 40 mg PO QAM 07/06/21 10/01/24 History release teriflunomide 14 mg tablet 14 mg PO QPM 05/13/22 10/01/24 History (Aubagio) doxycycline hyclate 50 mg capsule 50 mg PO Q2D Rosacea 08/10/22 10/01/24 History melatonin 3 mg tablet 3 mg PO HS 03/05/23 10/01/24 History multivitamin 1 tab PO DAILY 03/05/23 10/01/24 History Baclofen Pump 0 mg SC DIRECTED 08/05/23 10/01/24 History apixaban 5 mg tablet (Eliquis) 5 mg PO BID 02/03/24 10/01/24 History atorvastatin 40 mg tablet 40 mg PO QAM 09/13/24 10/01/24 History duloxetine 30 mg capsule,delayed 30 mg PO DAILY 09/13/24 10/01/24 History release metoprolol succinate 25 mg 25 mg PO BID 10/01/24 10/01/24 History tablet,extended release 24 hr tizanidine 4 mg tablet (Zanaflex) 4 mg PO Q6H PRN Muscle Spasm 10/01/24 10/01/24 History Past Med/Surg History Problem List Lower extremity cellulitis Septic shock Shock circulatory Contusion of face (Acute) Head injury (Acute) Fall (Acute) Cellulitis (Acute) Sepsis (Acute) Osteoarthritis of knees, bilateral Knee pain (Acute) Septic prepatellar bursitis (Acute) Paroxysmal atrial fibrillation Wound infection CLABSI (central line-associated bloodstream infection) Bacteremia Fungemia Myocardial strain Tachycardia Rosacea Hypomagnesemia Diarrhea Acute deep vein thrombosis of left lower extremity (Chronic) Traumatic open wound of right lower leg (Acute) Catheter-associated urinary tract infection Sepsis (Acute) Leg wound, right (Acute) Skin tear of left upper extremity (Acute) Chronic refractory osteomyelitis of ankle (Acute) Surgical wound, non healing (Acute) Osteomyelitis of ankle (Acute) Sepsis (Acute) Cellulitis of left lower leg (Acute) Chronic ulcer of right foot (Acute) HX: breast cancer Left breast cancer with surgery and chemo/radiation-left arm restriction Chronic anemia Paroxysmal atrial fibrillation Lower extremity edema (Chronic) Traumatic open wound of left lower leg with delayed healing (Acute) Ulcer of right ankle (Acute) Paroxysmal atrial fibrillation with RVR Hypotension Acute UTI (Acute) UTI (urinary tract infection) (Acute) Status post reverse total replacement of right shoulder (~04/2022) Encounter for pre-operative examination Closed right scapular fracture Sepsis Hypertension Multiple sclerosis Elevated troponin (Acute) Sepsis (Acute) Elevated troponin I level (Acute) Hypotension (Acute) Elevated lactic acid level (Acute) GERD (gastroesophageal reflux disease) controlled, stable per pt CAD (coronary artery disease) Non-obstructive per 06/2021 cardiac cath History of supraventricular tachycardia History of pulmonary embolism ~ 6 yrs ago, IVC filter still in place History of DVT (deep vein thrombosis) ~6 yrs ago Multiple sclerosis (Chronic) Follows with Dr. Walker/[facility] Stable Osteoporosis (Chronic) Neurogenic bladder (Chronic) SELF CATH 2-3 X'S PER DAY *RECENT HOSPITALIZATION FOR UTI Raynaud disease (Chronic) Presence of intrathecal pump (Chronic) baclofen pump in place--status post revision/replacement 08/10/2022 S/P IVC filter (Chronic) H/O left mastectomy (Chronic) with lymph node removal>LEFT ARM RESTRICTION History of open reduction and internal fixation (ORIF) procedure (Chronic) "left hip" S/P partial hysterectomy (Chronic) History of appendectomy (Chronic) Medical History Osteoarthritis of right knee Cellulitis of right lower extremity Anemia Cellulitis Acute leg pain Fever History of recent hospitalization 09/2022 [facility] - sepsis History of blood transfusion Limb alert care status left arm Osteoarthritis of right shoulder History of GI bleed Upper GIB (2019) felt 2/2 NSAID use History of non-ST elevation myocardial infarction (NSTEMI) 06/2021 (had heart cath, no stents) Hx of gastric ulcer 02/2021 Anemia Hypertension controlled, stable per pt Surgical History History of removal of Port-a-Cath (02/09/24) Mediport Removal(Right) - Tristin Lazo DO Port-A-Cath in place (09/29/23) A-Port Insertion, right internal jugular(Right) - Tristin Lazo DO S/p reverse total shoulder arthroplasty right: 05/25/22 LMA#4. No postop issues per anesthesia progress note. History of cardiac cath Cardiac cath (07/06/21; [facility]) > Right dominant coronary system. No evidence of aortic stenosis. Normal left ventricular filling pressures. Nonobstructive disease involving the ostial LAD. No evidence of acute coronary syndrome. Approximately 50% ostial stenosis of the LAD. There was some very mild disease at the ostium of the left circumflex. Recommendations: Medical management. History of esophagogastroduodenoscopy (EGD) History of colonoscopy History of tooth extraction Family History Mother Heart disorder Other No family history of adverse response to anesthesia Social History Smoking Status: Former smoker Tobacco Type: Cigarettes packs per day: 1; Cigarettes Per Day: stopped in 1977; Second Hand Exposure: No; Do You Dip or Chew Tobacco: No; Tobacco Cessation Education Requested by Patient: No Hx Alcohol Use: No Hx Substance Use: No Preferred Language: Azeri Communication Ability: Effective Visual Impairment: Limited Hearing Ability: Use of Hearing Aid Management Information Systems Director Required: No Beliefs That Will Affect Care: None marital status: / Current Living Situation: Alone Current Living Situation Comment: daughters are an hour away but check on her frequently per pt current occupational status: retired How many Children do You have: 3 Other Information That Helps Us Care for You: No Feels Safe at Home: Yes Safety Concerns: Feels Safe At This Time Childhood Exposure to Second-Hand Smoke: Yes Diet: regular caffeine: Yes Assistive Devices: Glasses, Hearing Aid - Bilateral, Walker and Wheelchair Review of Systems Review of Systems: all noted and negative except for above Physical Exam Physical Exam: General- oriented x 3, not in distress, speaks in sentences with no effort or accessory muscle use Head- atraumatic Eyes- (+) R periorbital hematoma, PERRL, EOMI, anicteric ENT- oropharynx clear (+) dry oral mucosa Neck- supple, no JVD, no adenopathy, no thyromegaly; carotids +2/2, no bruits appreciated Lungs- clear to auscultation bilaterally, no rales/wheezes Heart- normal rate, regular rhythm; no murmur, no gallop, no rub appreciated Abdomen- normal bowel sounds, nondistended, soft, nontender, no masses or hepatosplenomegaly Extremities- R lower leg: (+) significant erythema, warmth of distal half lower leg and the foot, no tenderness, (+) small, scabbed wound lateral heel area L lower leg: (+) mild erythema of distal half lower leg and the foot, no tenderness Neuro- alert, oriented x 3; CN 2-12 grossly intact; motor 5/5 bilaterally;sensation 100% on all extremities; no other gross focal neurologic deficits Skin- warm & dry Results & Data Results & Data Vital Signs (Past 12 Hours) Vital Signs Temp Pulse Pulse Resp BP BP Pulse Ox 10/01/24 14:36 111 H 14 89/68 L 99 10/01/24 14:33 105 H 15 98/59 L 95 10/01/24 14:26 114 H 12 84/54 L 99 10/01/24 14:25 113 H 15 68/46 L 96 10/01/24 14:21 109 H 16 77/40 L 95 10/01/24 14:16 121 H 14 70/55 L 96 10/01/24 14:09 118 H 20 72/47 L 10/01/24 13:00 129 H 14 76/58 L 94 10/01/24 13:00 117 H 22 76/58 L 94 10/01/24 12:56 37.6 C H 128 H 24 94/52 L 94 10/01/24 12:16 139 H 10/01/24 12:06 140 H 18 90/72 L 97 10/01/24 11:00 141 H 20 103/68 92 10/01/24 10:49 10/01/24 10:31 10/01/24 10:31 10/01/24 10:28 38.2 C H 144 H 18 144/90 H O2 Del Method 10/01/24 14:36 Room Air 10/01/24 14:33 Room Air 10/01/24 14:26 Room Air 10/01/24 14:25 Room Air 10/01/24 14:21 Room Air 10/01/24 14:16 Room Air 10/01/24 14:09 10/01/24 13:00 Room Air 10/01/24 13:00 Room Air 10/01/24 12:56 Room Air 10/01/24 12:16 10/01/24 12:06 Room Air 10/01/24 11:00 Room Air 10/01/24 10:49 Room Air 10/01/24 10:31 Room Air 10/01/24 10:31 Room Air 10/01/24 10:28 all noted and reviewed including below Laboratory Results all noted and reviewed including below Code Status & VTE Plan VTE Prophylaxis Plan VTE Prophylaxis will be ordered: Yes
--- NOTE | 2024-10-01 15:14 | Electrocardiogram Report ---
Test Reason : Blood Pressure : */* mmHG Vent. Rate : 146 BPM Atrial Rate : 146 BPM P-R Int : 134 ms QRS Dur : 62 ms QT Int : 290 ms P-R-T Axes : 95 73 76 degrees QTcB Int : 451 ms Poor data quality, interpretation may be adversely affected Sinus tachycardia with occasional Premature ventricular complexes Left ventricular hypertrophy with repolarization abnormality Anteroseptal infarct (cited on or before 10-Feb-2024) Abnormal ECG When compared with ECG of 13-Sep-2024 17:30, Premature ventricular complexes are now Present Vent. rate has increased by 70 bpm Questionable change in QRS axis ST now depressed in Lateral leads Confirmed by Louis Jerome ([id number]) on 10/01/2024 3:14:34 PM Referred By: REFERRED SELF Confirmed By: Louis Jerome
[2024-10-01] MEDS: ICU Protocol for HYPERglycemia SCH (16:25)
[2024-10-01] MEDS: MAGNESIUM SULFATE / D5W 1 GM/100 ML BAG IV ONE (16:26)
--- OUTSIDE RECORDS SUMMARY | 2024-10-01 16:37 | External Medical Summary | Summary of Care ---
Author Name Unknown Organization [facility] Address [address] [place] [address] Phone [phone] Care Team Providers Care Assistant City Attorney Name Role Phone Simi Hernandez Primary Care Provider Reason for Visit * Reason Onset Date Comments Follow Up Patient presents in office today for a 1m follow-up visit. Medication Administration 09/26/2024 Flu an d/or Pneumo Inj Encounter Details Date Type Department Care Team (Late st Contact Info) Description 09/26/2024 3:00 PM EDT Office Visit Family Practice [facility] [address] [facility] [place] [address] Simi Hernandez CRNP [address] [place] [address] Noninfected skin tear of left lower extremity, initial encounter*; Cellulitis of right lower extremity; Chronic ulcer of right foot limited to breakdown of skin (HCC); Coronary artery disease involving [place] coronary artery of [place] heart without angina pectoris; Need for prophylactic vaccination and inoculation against influenza Allergies No known active allergiesdocumented as of this encounter (statuses as of 09/26/2024) Medications Medication Sig Dispensed Refills Start Date [...] EVERY OTHER DAY 45 Capsule 07/31/2024 Active Additional Information Patient not taking.Reported on 09/19/2024 Cephalexin 500 MG Oral Capsule (Keflex) Take 1 Capsule by mouth in the morning and 1 Capsule at noon and 1 Capsule in the evening and 1 Capsule before bedtime. Started 09/19/24, for 4 days. Active documented as of this encounter (statuses as of 09/26/2024) Active Problems Problem Noted Date Diagnosed Date [...] of wound VAC 06/09/2023 Bladder dysfunction 04/05/2023 Noninfected skin tear of left leg 04/05/2023 Paroxysmal A-fib 03/17/2023 Hydronephrosis 03/17/2023 HTN, goal below 140/90 01/04/2023 Dyslipidemia, goal LDL below 70 01/04/2023 Debility 11/05/2022 Coronary artery disease invo lving [place] coronary artery of [place] heart without angina pectoris 11/05/2022 Medical home patient encounter 09/30/2022 S/P shoulder replacement, right 09/07/2022 ESBL E. coli carrier 09/07/2022 Presence of intrathecal baclofen pump 09/07/2022 History of UT (myocardial infarction) 05/12/2022 Mass of chest wall, [...] as of this encounter (statuses as of 09/26/2024) Resolved Problems Problem Noted Date Diagnosed Date Resolved Date UTI due to Klebsiella species 03/17/2023 06/09/2023 Pain and swelling of right lower leg 11/05/2022 11/25/2022 Hypotension 10/29/2022 01/07/2023 Closed displaced fracture of right acromial process 09/07/2022 01/07/2023 Closed displaced fracture of body of right scapula 09/07/2022 01/07/2023 Dyspnea 09/15/2021 05/12/2022 NSTEMI (non-ST elevated myoc ardial infarction) 07/16/2021 05/12/2022 PVC (premature ventricular contraction) 10/22/2020 05/12/2022 Iron deficiency anemia 08/13/202012/28 Depression with anxiety 05/05/2020 08 Sacroiliitis 12/19/2018 08/13/2019 Chronic ulcer of left [...] as of this encounter (statuses as of 09/26/2024) Immunizations Name Administration Dates Next Due COVID-19 mRNA, LNP-s, No Pre serve, 2-Dose Series (Pfizer) 04/18/2022,11/12/2021,01/28/2021,01/14 PPD 06/05/2018 Pneumococcal Conjugate Vacc, 13 Valent (Prevnar) 07/30/2020 Pneumococcal Polysaccharide PPV23 (Pneumovax) 07/05/2011 Seasonal Influenza Vac., MDV , IM, 0.5 mL (Fluzone) 08/29/2014,08/22/2013,10/16/2012,08/11,10/20/2010,09/05/2009,10/03/2008 Seasonal Influenza Virus Vac cine, Unspecified Formulation 10/02/2021,09/18/2020,10/22/2019,12/07,11/04/2017,11/10/2016,09/12/2015 ,08/29/2014,08/22/2013,10/16/2012,07/29,10/20/2010,09/05/2009, 8 Seasonal Influenza, High Dos e, Trivalent, PF, IM (Fluzone HD) 09/26/2024 Seasonal Influenza, PF, 6 M & above, [...] No 08/30/2024 Does the household have a [facility] source of income? (Household - for ages [...] Sign Reading Time Taken Comments Blood Pressure 118/72 09/26/2024 2:42 PM EDT Pulse 72 09/26/2024 2:42 PM EDT Temperature - - Respiratory Rate 16 09/26/2024 2:42 PM EDT Oxygen Saturation 96% 09/26/2024 2:42 PM EDT Inhaled Oxygen Concentration - - Weight - - Height - - Body Mass Index - - documented in this encounter Progress Notes * Patsy Bradford, MED ASSIST - 09/26/2024 3:55 PM EDT PRE - ADMINISTRATION DOCUMENTATION Are you experiencing any cold symptoms or fever? No Have you had Guillain-Winton Syndrome (an illness that causes paralysis) within the last 6 weeks? No Have you had the flu shot in the past? YES Have you ever had a reaction to the flu shot? No TOBY Farias, 09/26/2024 3:55 PM Immunization Administration Documentation Time Out Procedure Performed: Yes Patient Identified (Ask Name/Date of ): Yes Does the patient have a fever greater than 101 degrees today? No Patient allergic to latex? No VFC Stock: No Immunization(s) verified: Yes, Immunization Name: Flu, VIS Sheet(s) given: Yes Verified Side and Site: Yes Verified Shot(s) with Parent(s)/Patient: Yes * Simi Hernandez CRNP - 09/26/2024 2:52 PM EDT Images from the original note were not included. Follow up Family Medicine Visit CC: Chief Complaint Patient presents with Follow Up Patient presents in office today for a 1m follow-up visit. History of Present Illness: Kandy Shelby is a 73 year old female presenting for follow up. Right leg is not painful. She is wearing compression stocking. Less swelling and redness. She finished the oral keflex. Appt with ran is going to be schedule. Left left has new skin tear. Mood is improved on duloxetine. Social History Socioeconomic History Marital status: Spouse [...] Stability Do you currently live in a halfway or have no steady place to sleep [...] BONE performed by Andrea Stanford MD at [facility] BONE DEBRIDEMENT, FIRST 20 CM2 Right 05/12/2023 R lateral ankle osteomyelitis-Andrea Velasco DPRadha CARDIAC CATH-CARDIOLOGY ONLY 07/06/2021 [facility] COLONOSCOPY, DIAGNOSTIC (RECTUM) polyp removed not retrieved / INPT [facility] COLONOSCOPY, DIAGNOSTIC (RECTUM) 01/26/2018 poor prep, repeat / INPT [facility] COLONOSCOPY, DIAGNOSTIC (RECTUM) N/A 11/04/2022 poor prep/non-bleeding internal hemorrhoids/recall 3 months/Colonoscopy/AR COLONOSCOPY, DIAGNOSTIC (RECTUM) 05/05/2023 normal, repeat 5 yrs / COLONOSCOPY FLEXIBLE PROXIMAL DIAGNOSTIC performed by Blanche Chi DO at ENDOSCOPY [facility] CYSTOURETHROSCOPY, INJ FOR CHEMODENERVATION 03/29/2014 CYSTOURETHROSCOPY, INJ FOR CHEMODENERVATION performed by Hannah Milner MD at OR [facility] CYSTOURETHROSCOPY, INJ FOR CHEMODENERVATION 05/22/2015 EGD, FLEXIBLE, DIAGNOSTIC 01/25/2018 normal bx/[facility] EGD, FLEXIBLE, DIAGNOSTIC 04/30/2020 reflux esophagitis, gastric ulcer, repeat 2 mo / [facility] EGD, FLEXIBLE, DIAGNOSTIC 06/18/2020 gastric diverticulum, gastric irritation & ulceration, repeat 3-6 mo / [facility] EGD, FLEXIBLE, DIAGNOSTIC 03/19/2021 erosive gastritis, hiatal hernia / [facility] EGD, FLEXIBLE, DIAGNOSTIC 02/19/2022 erosive gastritis, hiatal hernia / [facility] EGD, FLEXIBLE, DIAGNOSTIC N/A 11/04/2022 large hiatal hernia/gastric diverticulum/EGD/[facility] TOOTH REMOV PART BONY (2) upper wisdom teeth removed IMPLANT/REPLACE SPINE INFUSION PUMP 07/2022 [facility] MASTECTOMY, MODIFIED RADICAL 09/2001 left breast- Dr. Ibrahim PAIN MANAGEMENT CATH 03/13/2009 Medtronic Baclofen pump- Dr. Shabazz- [facility] PARTIAL HIP REPLACEMENT & PROSTH left PARTIAL HYSTERECTOMY approx 1991 Ovaries remain in RECONSTRUCT/REPLACE SHOULDER JOINT Right 05/25/2022 Reverse total shoulder--Thad REMOVAL OF APPENDIX 06/25/[address] Johnson [facility] 06/25/2009 REPAIR THIGH FRACTURE, W/IMPLANT 10/2006 Hip ORIF- left hip Dr. Morales REVERSE TOTAL SHOULDER ARTHROPLASTY Right 05/25/2022 Dr. Oneil [facility] SACROILIAC JOINT INJECT W/GUIDANCE 08/17/2018 INJECTION SACROILIAC JOINT performed by Ulises Tran, DO at OR [facility] SACROILIAC JOINT INJECT W/GUIDANCE 10/09/2018 INJECTION SACROILIAC JOINT performed by Ulises Tran, DO at OR [facility] SACROILIAC JOINT INJECT W/GUIDANCE 02/01/2019 INJECTION SACROILIAC JOINT performed by Ulises Tran, DO at OR [facility] Current Outpatient Medications Medication Sig Dispense Refill Cephalexin 500 MG Oral Capsule (Keflex) Take 1 Capsule by mouth in the morning and 1 Capsule at noon and 1 Capsule in the evening and 1 Capsule before bedtime. Started 09/19/24, for 4 days. Doxycycline Hyclate 50 MG Oral Capsule (Vibramycin) TAKE 1 CAPSULE BY MOUTH EVERY OTHER DAY (Patient not taking: Reported on 09/19/2024) 45 Capsule 0 tiZANidine HCl 4 MG [...] mouth in the morning. 90 Tablet 3 predniSONE 10 MG Oral Tablet (Deltasone) Take [...] COVID-19 mRNA, LNP-s, No Preserve, 2-Dose Series (CurbStand) 04/18/2022 Denosumab 01/03/2019 PPD 06/05/2018 Pneumococcal Conjugate [...] Review of Systems Constitutional: Negative for chills, fatigue and fever. Respiratory: Negative for shortness of breath. Gastrointestinal: Negative for diarrhea. Genitourinary: Negative for dysuria. Psychiatric/Behavioral: Negative for sleep disturbance. Physical Exam: BP 118/72 | Pulse 72 | Resp 16 | SpO2 96% Physical Exam Constitutional: Comments: Seated in wheelchair HENT: Head: Normocephalic. Eyes: Pupils: Pupils are equal, round, and reactive to light. Cardiovascular: Rate and Rhythm: Normal rate and regular rhythm. Pulmonary: Effort: Pulmonary effort is normal. Breath sounds: Normal breath sounds. Abdominal: General: Bowel sounds are normal. Palpations: Abdomen is soft. Tenderness: There is no abdominal tenderness. Musculoskeletal: General: Normal range of motion. Cervical back: Normal range of motion. Feet: Feet: Comments: SCALING, minimal erythema Chronic violaceous change of skin Skin: Comments: SKIN TEAR SEEPING BRIGHT RED BLOOD NO SURROUNDING ERYTHEMA Neurological: General: No focal deficit present. Mental Status: She is alert and oriented to person, place, and time. Psychiatric: Mood and Affect: Mood normal. Behavior: Behavior normal. Thought Content: Thought content normal. Judgment: Judgment normal. Assessment and Plan: 1. Noninfected skin tear of left lower extremity, initial encounter Cleased with nss x 3 Bacitracin applied Coban applied Cleanse bid at home 2. Cellulitis of right lower extremity RESOLVED S/P KEFLEX 3. Chronic ulcer of right foot limited to breakdown of skin (HCC) CULTURE GREW PSEUDOMONAS S/P KEFLEX AND IV ABX 4. Coronary artery disease involving [place] coronary artery of [place] heart without angina pectoris Denies anginal symptoms. 5. Depression Mood improved on duloxetine I have advised the patient to call our office incase of any worsening or new symptoms. I spent a total of 40-54 minutes (exact time 40 mins) on the date of service in preparation, delivery, and documentation of the care provided to Kandy Shelby excluding any time spent in the performance of separately billed services. Kirstin, MSN, KEVIN [facility] Medicine documented in this encounter Nursing Notes * Patsy Bradford MED ASSIST - 09/26/2024 2:41 PM EDT The patient has been properly identified by confirmation of name and date of . Chief Complaint Patient presents with Follow Up Patient presents in office today for a 1m follow-up visit. documented in this encounter Plan of Treatment Upcoming Encounters Date Type Department Care Team (Late st Contact Info) Description 10/09/2024 10:00 AM EST Office Visit [facility] [address] [place] [address] Hannah Nicolas MD [address] [place] [address] 10/11/2024 2:05 PM EST NeuroDiagnostic Study Neurophysiology [address] [place] [address] Silver Mcduffie DO [address] [place] [address] 10/23/2024 3:00 PM EST Office Visit [facility] [address] [facility] [address] [facility] [address] 10/24/2024 2:00 PM EST Cardiac Studies Card[facility], [facility] [address] [facility] [place] [address] 10/24/2024 3:00 PM EST Office Visit Cardiology, [facility] [address] [place] [address] Camille Cuevas PA-C [address] [facility] [place] [address] 10/26/2024 11:00 AM EST Office Visit Dermatology, [place] [address] [place] [address] Kymberly Duque PA-C [address] [place] [address] 11/23/2024 3:00 PM EST Office Visit [facility] [address] [facility] [place] [address] Simi Hernandez CRNP [address] [place] [address] 02/04/2025 11:20 AM EDT Office Visit Neurology [facility] [address] [facility] [place] [address] Andrea Walker MD [address] [facility] [place] [address] 02/13/2025 1:30 PM EDT Office Visit Urology [place] [address] [place] [address] Elba Morales PA-C [address] [place] [address] 05/16/2025 8:00 AM EDT Office Visit [facility] [address] [place], [place] [id number] Edu Chaudhary, DO [address] [facility] [place] [id number] Scheduled Procedures Name Priority Associated Diagnoses Date/Ti [...] 04/15/2023, 03/28, 12/17/2019, Additional history exists GFR 08/22/2025 08/22/2024, 06/29, 06/26/2024, Additional history exists Depression Monitoring 08/30/2025 08/30/2024 Colonoscopy 05/05/2028 05/05/2023, 0606/2023, 11/04/2022, Additional history exists Colorectal Cancer Screening 05/05/2028 COVID-19 Vaccine Discontinued 06/04/2022, 06/2022, 04/18/2022, Additional history exists VITAMIN D LEVEL ONCE IN A LIFETIME-USE SMARTSET# [id number] Completed 01/17/2023, 04/05/2022, 04/28/2021, Additional history exists RETIRED - COLONOSCOPY-EVERY 5 YRS AGES 18-100 Discontinued 05/05/2023, 05/05/2023, 11/04/2022, Additional history exists Influenza Vaccine (FLU shot) Completed 09/26/2024, 10/13/2023, 10/15/2022, Additional history exists HPV (Gardasil) Vaccine Aged [...] as of this encounter Visit Diagnoses Diagnosis Noninfected skin tear of left lower extremity, initial encounter- Primary Cellulitis of right lower extremity Cellulitis and abscess of leg, except foot Chronic ulcer of right foot limited to breakdown of skin (HCC) Coronary artery disease involving [place] coronary artery of [place] heart without angina pectoris Need for prophylactic vaccination and inoculation against influenza documented in this encounter Advance Directives * [...] and were consensually agreed upon. Care Teams Assistant City Attorney Relationship Specialty Start Date End Date Simi Hernandez CRNP [address] [place] [address] PCP - General Nurse Practitioner 10/05/22 documented as of this encounter"
--- OUTSIDE RECORDS SUMMARY | 2024-10-01 16:38 | External Medical Summary | Summary of Care ---
Author Name Unknown Organization [facility] Address [address] [place] [address] Phone [phone] Care Team Providers Care Eye Glass Frame Polisher Name Role Phone Simi Hernandez Primary Care Provider Reason for Visit * Reason Onset Date Comments Hospital Follow-Up Patient ami mckeon in office today for a [facility] ER follow-up visit Hospital Follow-Up 09/21/2024 Encounter Details Date Type Department Care Team (Late st Contact Info) Description 09/21/2024 11:00 AM EDT Office Visit Family Practice [facility] [address] [address] Simi Hernandez CRNP [address] [address] Hospital discharge follow-up*; Cellulitis of lower extremity, unspecified laterality; HTN, goal below 140/90; Paroxysmal A-fib (HCC); Multiple sclerosis (HCC); Anemia of chronic disease; Chronic ulcer of right foot limited to breakdown of skin (HCC) Allergies No known active allergiesdocumented as of this encounter (statuses as of 09/21/2024) Medications Medication Sig Dispensed Refills Start Date [...] 02/14/2024 Active predniSONE 10 MG Oral Tablet (Deltasone)Indicati [...] bedtime. Started 09/19/24, for 4 days. Active Sulfamethoxazole-Tr imethoprim 800-160 MG Oral Tablet (Bactrim DS) Take 1 Tablet by mouth in the morning and 1 Tablet before bedtime. Do all this for 10 days. Until gone.. 20 Tablet 09/11/2024 4 Discontinu ed(Medicat ion List Clean Up) documented as of this encounter (statuses as of 09/21/2024) Active Problems Problem Noted Date Diagnosed Date Cellulitis of right lower extremity 09/11/2024 Polyneuropathy 09/11/2024 Chronic wound 09/11/2024 Ischemic optic neuropathy of both eyes 4 [...] Debility 11/05/2022 Coronary artery disease invo lving [place] coronary artery of [place] heart without angina pectoris 11/05/2022 Medical home patient encounter 09/30/2022 S/P shoulder replacement, right 09/07/2022 ESBL E. coli carrier 09/07/2022 Presence of intrathecal baclofen pump 09/07/2022 History of GA (myocardial infarction) 05/12/2022 Mass of chest wall, [...] as of this encounter (statuses as of 09/21/2024) Resolved Problems Problem Noted Date Diagnosed Date [...] as of this encounter (statuses as of 09/21/2024) Immunizations Name Administration Dates Next Due COVID-19 mRNA, LNP-s, No Pre serve, 2-Dose Series (Rapid RMS) 04/18/2022,11/12/2021,01/28/2021,01/14 PPD 06/05/2018 Pneumococcal Conjugate Vacc, 13 [...] No 08/30/2024 Does the household have a [facility] source of income? (Household - for ages [...] Sign Reading Time Taken Comments Blood Pressure 116/72 09/21/2024 10:57 AM EDT Pulse 75 09/21/2024 10:57 AM EDT Temperature - - Respiratory Rate 16 09/21/2024 10:57 AM EDT Oxygen Saturation 96% 09/21/2024 10:57 AM EDT Inhaled Oxygen Concentration - - Weight - - Height 160 cm (5' 2.99") 09/21/2024 10:57 AM EDT Body Mass Index - - documented in this encounter Progress Notes * Rhed, Simi KEVIN Garrett - 09/21/2024 11:17 AM EDT SUBJECTIVE: Kandy Shelby is a 73 year old female. Chief Complaint Patient presents with Hospital Follow-Up Patient presents in office today for a [facility] ER follow-up visit Hospital Follow-Up Recent Admission: Patient was recently admitted to [facility]. The date of discharge was 09/18/2024. She was admitted to [facility] for bilateral cellulitis. Treated with IV abx and transitioned to keflex to finish at home. MRI of right ankle, tib fib negative for osteomyelitis. CBC confirms anemia and stable. ? Right great toe distal osteomyelitis but ID felt this was not osteomyelitis. She was also started on lasix which was helpful to reduce BLE edema. Discharge report received and reviewed. HPI: Kandy is here for hospital follow up. Today her legs are not warm, or red. Non-tender. No new fever or chills. Denies anginal symptoms Patient Active Problem List Diagnosis Rosacea Multiple sclerosis (HCC) Neurogenic bladder Raynaud's syndrome Hx of actinic keratosis History of deep vein thrombosis (DVT) of lower extremity Stasis dermatitis of both legs History of pulmonary embolism High risk for fracture due to osteoporosis by DEXA scan Anemia of chronic disease Hx of nonmelanoma skin cancer Gastroesophageal reflux disease with esophagitis H/O: upper GI bleed Hiatal hernia SVT (supraventricular tachycardia) ([facility]) Mass of chest wall, right History of GA (myocardial infarction) S/P shoulder replacement, 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 Presence of intrathecal baclofen pump Medical home patient encounter Debility Coronary artery disease involving [place] coronary artery of [place] heart without angina pectoris HTN, goal below 140/90 Dyslipidemia, goal LDL below 70 Paroxysmal A-fib (HCC) Hydronephrosis Bladder dysfunction Pyogenic inflammation of bone ([facility]) Encounter for management of wound VAC Protein-calorie malnutrition (HCC) Need for prophylactic vaccination and inoculation against influenza Dysuria Chronic ulcer of right foot (HCC) Chronic deep vein thrombosis (DVT) of left peroneal vein (HCC) Chronic osteomyelitis of fibula (HCC) Nonrheumatic aortic valve stenosis Prepatellar bursitis due to group B Streptococcus, left Moderate episode of recurrent major depressive disorder ([facility]) Pressure injury of sacral region, stage 1 Wound of left leg Ischemic optic neuropathy of both eyes Cellulitis of right lower extremity Polyneuropathy Chronic wound Current Outpatient Medications Medication Sig Dispense Refill VITAMIN D 1000 UNITS PO CAPS One capsule daily 30 Cap 5 Aubagio 14 MG Oral Tablet Take 1 Tablet by mouth in the morning. Takes at night. Melatonin 3 MG Oral Tablet Disintegrating Take 3 mg by mouth every night at bedtime. 30 Tablet 0 Multivitamin Adult Oral Tablet Take by mouth 1 Tablet daily . 30 Tablet 0 Aspirin EC 81 MG Oral Tablet Delayed Release Take 1 Tablet by mouth in the morning. Azelaic Acid 15 % External Gel (Finacea) Apply to face twice daily as needed 50 g 1 LUCITA Knee Brace Medium Please eval and fit for bilateral knee brace as recommended by physical therapy. 2 Each O Eliquis 5 MG Oral Tablet Take 1 tablet by mouth twice daily 60 Tablet 5 Omeprazole 40 MG Oral Capsule Delayed Release (PriLOSEC) Take 1 capsule by mouth in the morning 30 Capsule 5 Magnesium Oxide 400 240 MG Oral Packet (Magnesium Oxide) Take 400 mg by mouth in the morning and 400 mg before bedtime. 180 Each 3 Transdermal Pain Base External Cream Apply to feet daily as needed. 500 g 2 Metoprolol Succinate ER 25 MG Oral Tablet Extended Release 24 Hour (toPROL XL) Take 1 Tablet by mouth in the morning and 1 Tablet before bedtime. 60 Tablet 11 Losartan Potassium 25 MG Oral Tablet (Cozaar) Take 1 Tablet by mouth in the morning. predniSONE 10 MG Oral Tablet (Deltasone) Take 1 tablet by mouth once daily 90 Tablet 1 Atorvastatin Calcium 40 MG Oral Tablet (Lipitor) Take 1 Tablet by mouth in the morning. 90 Tablet 3 oxyBUTYnin Chloride ER 15 MG Oral Tablet Extended Release 24 Hour (Ditropan XL) TAKE 1 TABLET BY MOUTH IN THE MORNING 90 Tablet 0 DULoxetine HCl 30 MG Oral Capsule Delayed Release Particles (Cymbalta) Take 1 Capsule by mouth in the morning. Do not cut, crush or chew. 30 Capsule 5 tiZANidine HCl 4 MG Oral Tablet (Zanaflex) Take 1 Tablet by mouth every 6 hours as needed for Muscle spasms. 360 Tablet 0 Cephalexin 500 MG Oral Capsule (Keflex) Take 1 Capsule by mouth in the morning and 1 Capsule at noon and 1 Capsule in the evening and 1 Capsule before bedtime. Started 09/19/24, for 4 days. Doxycycline Hyclate 50 MG Oral Capsule (Vibramycin) TAKE 1 CAPSULE BY MOUTH EVERY OTHER DAY (Patient not taking: Reported on 09/19/2024) 45 Capsule 0 No current facility-administered medications for this visit. Current and discharge medications have been reconciled. Review of patient's allergies indicates: No Known Allergies OBJECTIVE: BP 116/72 | Pulse 75 | Resp 16 | Ht 1.6 m (5' 2.99") | SpO2 96% | BMI 23.99 kg/m | BSA 1.65 m REVIEW OF SYSTEMS: Review of Systems Constitutional: Positive for fatigue. Negative for activity change and unexpected weight change. Eyes: Positive for visual disturbance. Cardiovascular: Positive for leg swelling. Negative for chest pain and palpitations. Gastrointestinal: Negative for abdominal pain. Neurological: Positive for weakness and numbness. PHYSICAL EXAM: BP 116/72 | Pulse 75 | Resp 16 | Ht 1.6 m (5' 2.99") | SpO2 96% | BMI 23.99 kg/m | BSA 1.65 m Physical Exam Constitutional: Comments: SEATED in Wheelchair HENT: Head: Normocephalic. Cardiovascular: Rate and Rhythm: Normal rate and regular rhythm. Comments: Chronic violaceous changes of bilateral legs Pulmonary: Effort: Pulmonary effort is normal. Breath sounds: Normal breath sounds. Abdominal: General: Bowel sounds are normal. Palpations: Abdomen is soft. Tenderness: There is no abdominal tenderness. Musculoskeletal: Right lower le+ Edema present. Left lower le+ Edema present. Neurological: General: No focal deficit present. Mental Status: She is alert and oriented to person, place, and time. Psychiatric: Mood and Affect: Mood normal. Behavior: Behavior normal. Thought Content: Thought content normal. Judgment: Judgment normal. ASSESSMENT: 1. Hospital discharge follow-up - DISCH MED RECON CUR MED LIS - DISCH MED RECON CUR MED LIS 2. Cellulitis of lower extremity, unspecified laterality RIGHT > LEFT S/P blood culture negative at [facility] Finish keflex S/p iv abx Hx of osteomyelitis in RLE- ruled out VIA mri AT [facility] 3. HTN, goal below 140/90 Stable today 4. Paroxysmal A-fib (HCC) Rate controlled 5. Multiple sclerosis (HCC) Ongoing gait disturbance and reduced ADLs On aubagio 6. Anemia of chronic disease STABLE HGB at 9 7. Chronic ulcer of right foot limited to breakdown of skin (HCC) RIGHT LATERAL ANKLE CULTURE FROM DR. PRESTON PENDING OBTAIN RESULTS I spent a total of 40-54 minutes (exact time 40 mins) on the date of service in preparation, delivery, and documentation of the care provided to Kandy Shelby excluding any time spent in the performance of separately billed services or time spent by another provider/QHP. KEVIN Mcgregor documented in this encounter Nursing Notes * Patsy Bradford MED ASSIST - 09/21/2024 10:55 AM EDT The patient has been properly identified by confirmation of name and date of . Chief Complaint Patient presents with Hospital Follow-Up Patient presents in office today for a [facility] ER follow-up visit documented in this encounter Plan of Treatment Upcoming Encounters Date Type Department Care Team (Late st Contact Info) Description 09/26/2024 3:00 PM EDT Office [facility] [address] Simi [facility] CR[facility] [address] 10/09/2024 10:00 AM EST Office Visit [facility] Surgery [facility] [address] [place] [address] Hannah Nicolas MD 200 [facility] [place] [address] 10/11/2024 2:05 PM EST NeuroDiagnostic Study Neurophysiology [facility] [address] [facility] [address] Silver Mcduffie DO 200 [facility] [place] [address] 10/23/2024 3:00 PM EST Office Visit [facility] [address] [place], [place] [address] Simi Hernandez CRNP [address] [place] [address] 10/24/2024 2:00 PM EST Cardiac Studies Cardiac Studies, [facility] [place], [place] [address] 10/24/2024 3:00 PM EST Office Visit Cardiology, [facility] 132 [facility] [place], [place] [address] Camille Cuevas PA-C [address] [place] [address] 10/26/2024 11:00 AM EST Office Visit Dermatology, Kirstie Avina [address] [address] Kymberly Duque PA-C [address] [place] [address] 11/23/2024 3:00 PM EST Office Visit Family Practice [facility] [address] [place] [address] Simi Hernandez CRNP [address] [place] [address] 02/04/2025 11:20 AM EDT [facility] [place] [address] Andrea Walker MD 200 [facility] [place] [address] 02/13/2025 1:30 PM EDT Office Visit Urology Kirstie Avina [address] [place] [address] Elba Morales PA-C [address] [place] [address] 05/16/2025 8:00 AM EDT Office Visit [address] [address] Edu Chaudhary, DO [address] [place] [address] Scheduled Procedures Name Priority Associated Diagnoses Date/Ti [...] D LEVEL ONCE IN A LIFETIME-USE SMARTSET# [id number] Completed 01/17/2023, 04/05/2022, 04/28/2021, Additional history exists [...] as of this encounter Visit Diagnoses Diagnosis Hospital discharge follow-up- Primary Other follow-up examination Cellulitis of lower extremity, unspecified laterality HTN, goal below 140/90 Unspecified essential hypertension Paroxysmal A-fib (HCC) Atrial fibrillation Multiple sclerosis (HCC) Multiple sclerosis Anemia of chronic disease Anemia of other chronic disease Chronic ulcer of right foot limited to breakdown of skin (HCC) documented in this encounter Advance Directives * [...] and were consensually agreed upon. Care Teams Eye Glass Frame Polisher Relationship Specialty Start Date End Date Simi Hernandez CRNP [address] [address] PCP - General Nurse Practitioner 10/05/22 documented as of this encounter
--- OUTSIDE RECORDS SUMMARY | 2024-10-01 16:38 | External Medical Summary | Summary of Care ---
Author Name Unknown Organization [facility] Address [address] [place] [address] Phone [phone] Care Team Providers Care Set Up And Lay Out Inspector Name Role Phone Simi Hernandez Primary Care Provider Reason for Visit * Reason Onset Date Comments Test Results 09/21/2024 Encounter Details Date Type Department Care Team (Late st Contact Info) Description 09/21/2024 Telephone Family Practice [facility] 132 [facility] [place] [address] Simi Hernandez CRNP 132 [facility] [place] [address] Test Results Allergies No known active allergiesdocumented [...] 11/05/2022 Coronary artery disease invo lving [place] coronary artery of [place] heart without angina pectoris 11/05/2022 Medical home [...] mRNA, LNP-s, No Pre serve, 2-Dose Series (Aviir) 04/18/2022,11/12/2021,01/28/2021,01/14 PPD 06/05/2018 Pneumococcal Conjugate Vacc, 13 [...] encounter Miscellaneous Notes * Telephone Encounter - Herminia Munroe LPN - 09/21/2024 3:49 PM EDT Patient is aware and verbalizes understanding. * Telephone Encounter - Simi Hernandez CRNP - 09/21/2024 1:46 PM EDT Please notify percy of Culture positive for bacteria that the antibiotics that she got inhospital and orally at home will treat. Marily Velasco's office should be calling her to schedule follow up Kirstin, ADELSO, KEVIN [facility] * Telephone Encounter - Patsy Bradford MED ASSIST - 09/21/2024 1:27 PM EDT Results were faxed and I have them currently at my desk. * Telephone Encounter - Patsy Bradford MED ASSIST - 09/21/2024 12:[address] Velasco's office and spoke with Zoraida. She will have the nurses send the culture results over. She will also check if she is in need of a follow-up and reach out to the patient. * Telephone Encounter - Simi Hernandez CRNP - 09/21/2024 12:39 PM EDT Please call Dr. Velasco office in [place] for copy of culture of leg. Also can they schedule her a follow up. Patient would like to continue to see them. Kirstin, MSN, KEVIN [facility] documented in this encounter Plan of Treatment Upcoming Encounters Date Type Department Care Team (Late st Contact Info) Description 09/26/2024 3:00 PM EDT Office Visit Family Practice [facility] 132 [facility] [place] [address] Simi Hernandez CRNP 132 [facility] [place] [address] 10/09/2024 10:00 AM EST Office Visit [facility] Surgery [facility] [address] [place] [address] Hannah Nicolas MD 200 [facility] [place] [address] 10/11/2024 2:05 PM EST NeuroDiagnostic Study Neurophysiology [facility] 132 [facility] [place] [address] Silver Mcduffie, DO [address] [place] [address] 10/23/2024 3:00 PM EST Office Visit Family Practice [facility] [address] [place] [address] Simi Hernandez CRNP [address] [place] [address] 10/24/2024 2:00 PM EST Cardiac Studies Cardiac Studies, [facility] 132 [facility] [place] [address] 10/24/2024 3:00 PM EST Office Visit Cardiology, [facility] 132 [facility] [place] [address] Camille Cuevas PA-C 132 [facility] [place] [address] 10/26/2024 11:00 AM EST Office Visit Dermatology, Kirstie Avina [address] [place] [address] Kymberly Duque PA-C [address] [place] [address] 11/23/2024 3:00 PM EST Office Visit Family Practice [facility] [address] [place] [address] Simi Hernandez CRNP [address] [place] [address] 02/04/2025 11:20 AM EDT Office Visit Neurology [facility] [address] [place] [address] Andrea Walker MD [address] [place] [address] 02/13/2025 1:30 PM EDT Office Visit Urology Kirstie Avina [address] [place] [address] Elba Morales PA-C [address] [place] [address] 05/16/2025 8:00 AM EDT Office Visit [address] [address] Edu Chaudhary, DO [address] [place] [address] Scheduled Procedures Name Priority Associated Diagnoses Date/Ti [...] D LEVEL ONCE IN A LIFETIME-USE SMARTSET# [id number] Completed 01/17/2023, 04/05/2022, 04/28/2021, Additional history exists [...] and were consensually agreed upon. Care Teams Set Up And Lay Out Inspector Relationship Specialty Start Date End Date Simi Hernandez CRNP [address] [address] [address] PCP - General Nurse Practitioner 10/05/22 documented as of this encounter
--- OUTSIDE RECORDS SUMMARY | 2024-10-01 16:39 | External Medical Summary | Summary of Care ---
Author Name Unknown Organization [facility] Address [address] [place] [address] Phone [phone] Care Team Providers Care Head Correction Officer Name Role Phone Simi Hernandez Primary Care Provider Reason for Visit * Reason Onset Date Comments Advice 09/13/2024 Encounter Details Date Type Department Care Team (Late st Contact Info) Description 09/13/2024 Telephone Family Practice [facility] 132 [facility] [place] [address] Simi Hernandez CRNP 132 [facility] [place] [address] Advice Allergies No known active allergiesdocumented as [...] Debility 11/05/2022 Coronary artery disease invo lving [place] coronary artery of [place] heart without angina pectoris 11/05/2022 Medical home [...] mRNA, LNP-s, No Pre serve, 2-Dose Series ([facility]) 04/18/2022,11/12/2021,01/28/2021,01/14 PPD 06/05/2018 Pneumococcal Conjugate Vacc, 13 [...] No 08/30/2024 Does the household have a [facility] source of income? (Household - for ages [...] Telephone Encounter - Simi Hernandez CRNP - 09/13/2024 4:31 PM EDT NOTED. Agree. Kirstin, MSN, KEVIN [facility] * Telephone Encounter - Hannah Abernathy LPN - 09/13/2024 4:04 PM EDT Transferred call from Cassy page her daughter. Just got off phone with you. S/w her mother, not feeling well, update: she will be going to ER and just wanted to let you know. "Face is on fire",.. might have fever. Advised this was the best choice currently. Daughter agrees. Thanks us for care. * Telephone Encounter - Marcus Best OSA - 09/13/2024 4:03 PM EDT Speak nurse documented in this encounter Plan of Treatment Upcoming Encounters Date Type Department Care Team (Late st Contact Info) Description 09/26/2024 3:00 PM EDT Office Visit [facility] [address] [place] [address] Simi Hernandez CRNP [address] [place] [address] 10/09/2024 10:00 AM EST Office Visit [facility] Surgery [facility] [address] [place], [place] [address] Hannah Nicolas MD 200 [place] [address] 10/11/2024 2:05 PM EST NeuroDiagnostic Study Neurophysiology [facility] 132 [facility] [place] [address] Silver Mcduffie, 200 [place] [address] 10/23/2024 3:00 PM EST Office Visit [facility] 132 [facility] [place] [address] Simi Hernandez CRNP [address] [place] [address] 10/24/2024 2:00 PM EST Cardiac Studies Cardiac Studies, [facility] 132 [facility] [place] [address] 10/24/2024 3:00 PM EST Office Visit Cardiology, [facility] 132 [facility] [place] [address] Camille Cuevas PA-C [address] [place] [address] 10/26/2024 11:00 AM EST Office Visit Dermatology, Diana ColeKirstie [address] [place] [address] Kymberly Duque PA-C [address] [place] [address] 11/23/2024 3:00 PM EST Office Visit Family Practice [facility] [address] [place] [address] Simi Hernandez CRNP [address] [place] [address] 02/04/2025 11:20 AM EDT Office Visit Neurology [facility] [address] [place] [address] Andrea Walker MD [address] [place] [address] 02/13/2025 1:30 PM EDT Office Visit Urology Diana ColeKirstie [address] [place] [address] Elba Morales PA-C [address] [place] [address] 05/16/2025 8:00 AM EDT Office Visit [address] [address] Edu Chaudhary, DO [address] [place], [place] [id number] Scheduled Procedures Name Priority Associated Diagnoses Date/Ti [...] D LEVEL ONCE IN A LIFETIME-USE SMARTSET# [id number] Completed 01/17/2023, 04/05/2022, 04/28/2021, Additional history exists [...] and were consensually agreed upon. Care Teams Head Correction Officer Relationship Specialty Start Date End Date iSmi Hernandez CRNP [address] [place] [address] PCP - General Nurse Practitioner 10/05/22 documented as of this encounter
--- OUTSIDE RECORDS SUMMARY | 2024-10-01 16:39 | External Medical Summary | Summary of Care ---
Author Name Unknown Organization [facility] Address [address] [place] [address] Phone [phone] Care Team Providers Care Farm Crew Member Name Role Phone Simi Hernandez Tami BROWN Primary Care Provider Reason for Visit * Reason Onset Date Comments case management 09/18/2024 Disenroll from A Encounter Details Date Type Department Care Team (Late st Contact Info) Description 09/18/2024 Telephone Care Coordination and Integration [address], [place] [id number] Sulema Winston RN [address] [place] [address] case management (Disenroll from [facility]) Allergies No known active allergiesdocumented as of this encounter (statuses as of 09/20/2024) Medications Medication Sig Dispensed Refills Start Date [...] Additional Information Patient not taking.Reported on 09/19/2024 Sulfamethoxazole-Tri methoprim 800-160 MG Oral Tablet (Bactrim DS) Take 1 Tablet by mouth in the morning and 1 Tablet before bedtime. Do all this for 10 days. Until gone.. 20 Tablet 09/11/2024 Active documented as of this encounter (statuses as of 09/20/2024) Active Problems Problem Noted Date Diagnosed Date [...] Debility 11/05/2022 Coronary artery disease invo lving [place] coronary artery of [place] heart without angina pectoris 11/05/2022 Medical home [...] as of this encounter (statuses as of 09/20/2024) Resolved Problems Problem Noted Date Diagnosed Date [...] as of this encounter (statuses as of 09/20/2024) Immunizations Name Administration Dates Next Due COVID-19 [...] encounter Miscellaneous Notes * Telephone Encounter - Sulema Winston RN - 09/18/2024 2:46 PM EDT Please discharge the patient from [facility] ([facility]). Device(s)/IVR to be discontinued: blood pressure monitoring due to completion. Thank you. documented in this encounter Plan of Treatment Upcoming Encounters Date Type Department Care Team (Late st Contact Info) Description 09/21/2024 11:00 AM EDT Office Visit [facility] [address] [address] Simi Hernandez CRNP [address] [address] 09/26/2024 3:00 PM EDT Office Visit [facility] [address] [address] Simi Hernandez CRNP [address] [place] [address] 10/09/2024 10:00 AM EST Office Visit [facility] [address] [place], [place] [address] Hannah Nicolas MD 200 [facility] [address] 10/11/2024 2:05 PM EST NeuroDiagnostic Study Neurophysiology [facility] [address] [place] [address] [place], [facility] [address] 10/23/2024 3:00 PM EST Office Visit Family Practice [facility] [address] [place] [address] Simi Hernandez CRNP [address] [place] [address] 10/24/2024 2:00 PM EST Cardiac Studies Cardiac Studies, [facility] [address] [place] [address] 10/24/2024 3:00 PM EST Office Visit Cardiology, [facility] [address] [place] [address] Camille Cuevas PA-C [address] [place] [address] 10/26/2024 11:00 AM EST Office Visit Dermatology, Kirstie Avina [address] [address] [address] Kymberly Duque PAJoaquinaC [address] [address] 11/23/2024 3:00 PM EST Office Visit Family Practice [facility] [address] [place] [address] Simi Hernandez CRNP [address] [place] [address] 02/04/2025 11:20 AM EDT [facility] [address] [facility] [place] [address] Andrea Walker MD [address] [place] [address] 02/13/2025 1:30 PM EDT Office Visit Urology Kirstie Avina [address] [facility] [address] [place] [address] Elba Morales PA-C [address] [place] [address] 05/16/2025 8:00 AM EDT Office Visit [facility] [address] [place] [address] Edu Chaudhary, DO [address] [place] [address] Scheduled Procedures Name Priority Associated Diagnoses Date/Ti [...] D LEVEL ONCE IN A LIFETIME-USE SMARTSET# [id number] Completed 01/17/2023, 04/05/2022, 04/28/2021, Additional history exists [...] and were consensually agreed upon. Care Teams Farm Crew Member Relationship Specialty Start Date End Date Simi Hernandez CRNP [address] [address] PCP - General Nurse Practitioner 10/05/22 documented as of this encounter
[2024-10-01] MEDS: HYDROCORTISONE SOD 50 MG in SYRINGE 0 ML IV SCH (18:21)
[2024-10-01] MEDS: CASPOFUNGIN 70 MG in SODIUM CHLORIDE 0.9% 250 ML IV ONE (19:39)
[2024-10-01] MEDS: CEFEPIME 2000MG 2,000 MG/20 ML SYR IV SCH (22:49)
[2024-10-02 04:41] LABS: Hematocrit (blood only) 29.1 % (37.0-47.0); Hemoglobin 9.5 g/dl (12.0-16.0); Mean Corpuscular Hemoglobin 27.9 pg (25.0-34.0); Mean Corpuscular Hgb Conc 32.6 g/dL (32.0-36.0); Mean Corpuscular Volume 85.6 fL (80.0-100.0); Mean Platelet Volume 10.8 fL (9.4-12.4); Platelet Count 260 K/uL (130-400); RDW Coefficient of Variation 20.4 % (11.5-14.5); RDW Standard Deviation 63.9 fL (36.4-46.3)
[2024-10-02 05:01] LABS: Anisocytosis Present; Basophils # (auto) 0.03 K/uL (0.00-0.20); Basophils % (auto) 0.2 %; Immature Granulocytes # (auto) 0.05 K/uL (0.01-0.20); Immature Granulocytes % (auto) 0.3 %; Lymphocytes # (auto) 0.22 K/uL (1.20-3.40); Lymphocytes % (auto) 1.5 %; Monocytes # (auto) 0.34 K/uL (0.11-0.59); Monocytes % (auto) 2.3 %; Neutrophils # (auto) 13.96 K/uL (1.40-6.50); Neutrophils % (auto) 95.7 %; Ovalocytes 1+; Polychromasia 1+; Toxic Vacuolation 1+
[2024-10-02 05:07] LABS: Alanine Aminotransferase 19 U/L (7-52); Albumin Globulin Ratio 1.1 (0.9-2); Albumin Level 2.9 gm/dl (3.4-5.0); Alkaline Phosphatase 36 U/L (34-104); Anion Gap 6 (3-11); BUN Creatinine Ratio 23.3 (10-20); Bilirubin,Total 0.4 mg/dl (0.2-1.0); Blood Urea Nitrogen 20 mg/dl (6-23); Calcium 7.9 mg/dl (8.6-10.3); Carbon Dioxide 23 mmol/L (21-32); Chloride 109 mmol/L (98-107); Creatinine Clr Calc Pharmacy 56.2 ml/min; Globulin 2.6 gm/dl (2.5-4.0); Glucose 107 mg/dl (70-99(Fasting)); Magnesium 2.3 mg/dl (1.7-2.4); Sodium 138 mmol/L (136-145); Total Protein 5.5 gm/dl (6.0-8.3)
[2024-10-02] MEDS: VANCOMYCIN 1,250mg in D5W 250mL (Use w/ NSS Shortage) IV SCH (05:32)
[2024-10-02 06:34] LABS: Troponin I High Sensitivity 474.3 pg/ml (0-14)
--- NOTE | 2024-10-02 07:51 | XRay Report ---
EXAM: XR chest 1V portable CLINICAL HISTORY: RESP FAILURE JTF/TGB INPATIENT TECHNIQUE: X-ray images of the chest were obtained in the frontal projection. COMPARISON: 09/13/2024 FINDINGS: Pulmonary Parenchyma: Still noted bilateral coarsening of the pulmnary interstitium; likely senile changes. No evidence of consolidation, collapse, or focal opacities. No pulmonary nodules identified. No evidence of pleural effusion or pleural thickening. Heart and Mediastinum: Increased cardiac size. Suspected retro-cardiac opacity is noted. Prominent bilateral hilar vascular shadows; probably related to congestion. Bony Thorax: Bony thorax appears intact without fractures or deformities. Soft Tissues: Elevated left diaphragmatic copula. IMPRESSION: 1. Still noted bilateral coarsening of the pulmnary interstitium; likely senile changes. 2. Increased cardiac size. 3. Suspected retro-cardiac opacity is noted. 4. Prominent bilateral hilar vascular shadows; probably related to congestion. 5. Elevated left diaphragmatic copula. 6. Unchanged study. Electronically signed by Kimberly Penn 10-02-2024 07:51 AM
--- NOTE | 2024-10-02 08:10 | Critical Care Progress Note ---
Date of Service October 02, 2024 Assessment & Plan (1) Contusion of face: (2) Cellulitis: (3) Shock circulatory: (4) Paroxysmal atrial fibrillation: (5) Breast cancer: (6) Multiple sclerosis: (7) Elevated troponin: (8) S/P IVC filter: Plan Reason Critically Ill: 73-year-old female presented to the hospital with septic shock, transferred to the ICU for vasopressor support Past medical history: Coronary artery disease, history of PE/paroxysmal A-fib on Eliquis, hypertension, dyslipidemia, left-sided breast cancer status postsurgery and radiation, on chronic prednisone for MS Neuro - [facility] ICU: Negative --Multiple sclerosis Primary progressive with bilateral optic nerve involvement On chronic 10mg prednisone along with Aubagio Cardiac - -- S/p septic shock Source could be urine versus questionable cellulitis Continue vasopressor support to keep MAP greater than 65 -- Elevated troponin Likely type II NH EKG 10/01/2024 10:49 AM: Sinus tachycardia, normal axis, no ST changes, acute T waves appreciated on the lateral leads, PVCs, -- History of nonobstructive coronary artery disease and dyslipidemia On metoprolol at home Respiratory - -- No acute issues Saturating well on room air CT chest 10/01/2024 personally reviewed: Minimal bilateral apical pleural scarring Motion degraded study Moderate hiatal hernia No significant mediastinal lymphadenopathy GI - No acute issues RENAL/LYTES - -- Monitor BUNs/creatinine Avoid nephrotoxic medication - -- Self catheterizes every night ENDO - --ICU hypoglycemia protocol HEME - -- Chronic anemia normocytic Monitor H&H ID - -- Septic shock Source is UTI Follow-up blood culture Continue with empiric antibiotics with gram-negative coverage In the chart it states that patient has history of fungemia. Empiric caspofungin for 48 hours --Prophylaxis VTE: Eliquis GI: Lansoprazole Lines: Femoral Diet: Regular Plan: In/out: +3.7 L, urine output 875 mL Patient has been off vasopressors for more than 8 hours constitutional: No acute distress Continue with antibiotics Continue with hydrocortisone and taper it off over 3 days and go back to prednisone 10 mg home dose Will get wound care to look at the lower extremities If the blood culture and urine cultures are negative for 48 hours then I would recommend CT of bilateral lower extremities to rule out osteo Resume Eliquis Patient hemodynamically stable to be downgrade to medical floor Please note the above document was generated using voice recognition software. It may contain grammatical, syntax or spelling errors.Any formal questions or concerns about the content, text or information contained within the body of this dictation should be directly addressed to the provider for clarification. Admission and Anticipated Discharge Date Admission Date: October 01, 2024 Subjective Patient seen and examined at bedside. No acute distress, no adverse events overnight She was off vasopressors MAP was in the 90s but systolic and 106 She was feeling much better compared to yesterday She finished her breakfast and enjoyed it Denied any headache, no blurry vision No nausea vomiting No abdominal pain Review of Systems 2 Review of Systems: All systems reviewed & are unremarkable except as noted in Subjective Physical Exam 2 Physical Exam: Constitutional: No acute distress HEENT: EOMI, PERRLA, right periorbital bruising Respiratory system: Decreased air entry bilaterally, no wheeze, no rhonchi, positive crackles bilateral lower lobes CVS: S1-S2 positive, positive 3 out of 6 systolic murmur appreciated best at left parasternal border Abdomen: Soft, nontender, nondistended, positive bowel sounds x4 Extremities: +2 pulses bilaterally radialis/ dorsalis pedis, no cyanosis, +1 pitting edema bilateral lower extremity, warm extremities, positive rubor, right greater than left Neuro: Awake alert oriented x3 Psych: Normal mood and affect G/U: Positive Zuñiga Skin: no rashes, warm and dry Lymphatic: no cervical or axillary lymphadenopathy Results & Data Results & Data Vital Signs (Past 12 Hours) Vital Signs Temp Pulse Pulse Resp BP BP Pulse Ox 10/02/24 07:29 99 H 10/02/24 07:00 36.9 C 96 H 24 115/82 92 10/02/24 06:00 36.8 C 91 H 12 131/72 93 10/02/24 05:00 95 H 20 92/63 L 97 10/02/24 04:21 36.9 C 97 H 19 113/67 95 10/02/24 03:30 37.1 C 96 H 22 102/68 94 10/02/24 01:39 37.3 C 95 H 20 123/70 92 10/02/24 01:12 37.2 C 94 H 19 127/72 93 10/02/24 00:06 37.1 C 88 19 96/63 L 93 10/01/24 23:03 37.0 C 92 H 18 126/77 93 10/01/24 22:03 36.9 C 90 17 126/78 96 10/01/24 21:00 37.0 C 88 14 104/72 96 O2 Del Method 10/02/24 07:29 10/02/24 07:00 Room Air 10/02/24 06:00 Room Air 10/02/24 05:00 Room Air 10/02/24 04:21 Room Air 10/02/24 03:30 Room Air 10/02/24 01:39 Room Air 10/02/24 01:12 Room Air 10/02/24 00:06 Room Air 10/01/24 23:03 Room Air 10/01/24 22:03 Room Air 10/01/24 21:00 Room Air Laboratory Results 10/02/24 04:06 10/02/24 05:26 Coding Level of Care Code 56348 SUB INP/OBS CARE 3/50MIN Diagnoses Contusion of face S00.83XA Encounter type: initial encounter Cellulitis L03.115 Laterality: right Site of cellulitis: extremity Site of cellulitis of extremity: lower extremity Shock circulatory R57.9 Paroxysmal atrial fibrillation I48.0 Breast cancer C50.919 Multiple sclerosis G35 Elevated troponin R77.8 S/P IVC filter Z95.828 (1) Contusion of face Encounter type: initial encounter Qualified Code(s): S00.83XA - Contusion of other part of head, initial encounter (2) Cellulitis Laterality: right Site of cellulitis: extremity Site of cellulitis of extremity: lower extremity Qualified Code(s): L03.115 - Cellulitis of right lower limb
[2024-10-02] MEDS: APIXABAN 5 MG TABLET PO SCH (11:21)
[2024-10-02] MEDS: PANTOprazole 40 MG TAB PO SCH (11:21)
[2024-10-02] MEDS ORDERED: tiZANidine HCL 4 MG TABLET PO PRN (11:54)
[2024-10-02] MEDS: ACETAMINOPHEN 1,000 MG/100 ML VIAL IV PRN (13:09)
--- NOTE | 2024-10-02 13:34 | Hospitalist Progress Note ---
Date of Service October 02, 2024 Assessment & Plan (1) Septic shock: (2) Lower extremity cellulitis: Plan: Kandy Shelby is a 73y/o F with PMHx significant for CAD, HTN, HLD, PAF, PSVT, nonrheumatic aortic valve stenosis, Raynaud's syndrome, history ESBL E. coli UTI, prior DVT with pulmonary emboli s/p IVC filter placement [on Eliquis], GERD with esophagitis, protein-calorie malnutrition, neurogenic bladder, multiple sclerosis [on chronic prednisone + Aubagio], polyneuropathy with chronic pain on Baclofen pump, tobacco use, anemia of chronic disease [baseline Hgb ~9-10], depression with anxiety, sicca syndrome, history of nonmelanoma skin cancer s/p Mohs operation, left breast cancer s/p radiation + surgery, rosacea [on doxycycline], right foot drop, bilateral lower extremity venous stasis, chronic osteomyelitis of the right fibula, chronic right lateral ankle wound and recurrent right lower extremity cellulitis who presented to the ED after a fall. Septic shock Cellulitis Urinary tract infection--POA Possible adrenal insufficiency on chronic prednisone use Urine culture: preliminary culture growing Pseudomonas Blood cultures pending Continue vancomycin, cefepime Also on Caspofungin Vasopressors discontinued Lactic acid levels normalized with IV fluids Appreciate critical care input Infectious disease consulted Will consider imaging of lower extremities to rule out osteo if no improvement clinically Plan to transfer out of ICU today Taper hydrocortisone over 3 days back to home prednisone Check cortisol level Mild troponin elevation Likely demand ischemia secondary to above Denies any chest pain, dyspnea Fall Fall precautions PT OT as able Subacute left glenoid fracture Incidental finding on CT CT showed: Subacute appearing left glenoid fracture with large focus of heterogeneous attenuation along the inferior margin of the glenohumeral joint likely representing a complex joint effusion. 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 Follows with Dr. Andrea Walker at [facility] On chronic prednisone therapy in addition to Aubagio. May need higher dose of prednisone from baseline based on cortisol levels Anemia of Chronic Disease: Monitor CBC Chronic Back Pain: Patient with an indwelling intrathecal Baclofen pump in place [employer]. Follows with [facility] for pump checks previously. Other Chronic Medical Conditions: GERD Depression with anxiety Polyneuropathy Continue home medications as able DVT Px: Eliquis Code Status Full Code Admission and Anticipated Discharge Date Admission Date: October 01, 2024 Subjective Patient is seen and examined at bedside States feeling better today Reports having some right ankle pain and right periorbital tenderness Otherwise no specific complaints Discussed with ICU team Denies any chest pain, dyspnea, dizziness Off pressors today Review of Systems Review of Systems: All systems reviewed & are unremarkable except as noted in Subjective Physical Exam Physical Exam: Physical Exam: Vitals signs as noted above General Appearance:Moderately built and nourished, no apparent distress, chronic ill appearing Head: normocephalic, +traumatic, R periorbital ecchymosis, tenderness Eyes: normal inspection, EOMI Neck: supple, Trachea midline Respiratory/Chest: Decreased breath sounds, CTA, No accessory muscle use Cardiovascular: S1, S2, No +murmur Abdomen/GI:Soft, Non tender, Bowel sounds present Extremities/Musculoskeletal:normal inspection, R> L LE edema, +erythema, wound in dressing Neurologic/Psych:AAOX3, grossly no focal neurological deficits Skin: normal color, warm Results & Data Results & Data Vital Signs (Past 12 Hours) Vital Signs Temp Pulse Pulse Resp BP BP Pulse Ox 10/02/24 07:29 99 H 10/02/24 07:00 36.9 C 96 H 24 115/82 92 10/02/24 06:00 36.8 C 91 H 12 131/72 93 10/02/24 05:00 95 H 20 92/63 L 97 10/02/24 04:21 36.9 C 97 H 19 113/67 95 10/02/24 03:30 37.1 C 96 H 22 102/68 94 10/02/24 01:39 37.3 C 95 H 20 123/70 92 O2 Del Method 10/02/24 07:29 10/02/24 07:00 Room Air 10/02/24 06:00 Room Air 10/02/24 05:00 Room Air 10/02/24 04:21 Room Air 10/02/24 03:30 Room Air 10/02/24 01:39 Room Air Laboratory Results Short CBC 10/02/24 Range/Units 04:06 WBC 14.60 H (4.8-10.8) K/ul Hgb 9.5 L (12.0-16.0) g/dl Hct 29.1 L (37.0-47.0) % Plt Count 260 (130-400) K/uL BMP 10/02/24 10/02/24 04:06 05:26 Sodium 138 Potassium TNP 4.0 Chloride 109 H Carbon Dioxide 23 BUN 20 Creatinine 0.86 Glucose 107 H Calcium 7.9 L Liver Function 10/02/24 10/02/24 Range/Units 04:06 05:26 Total Bilirubin 0.4 (0.2-1.0) mg/dl AST TNP 30 ALT 19 (7-52) U/L Alkaline Phosphatase 36 (34-104) U/L Albumin 2.9 L (3.4-5.0) gm/dl Urine 10/01/24 Range/Units 13:11 Urine Color Yellow Urine Appearance Clear (Clear) Urine pH 5.5 (4.5-7.5) Ur Specific Raccoon > 1.045 H (1.000-1.030) Urine Protein 2+ H (Negative) Urine Glucose (UA) Negative (Negative)
--- NOTE | 2024-10-02 14:46 | Pharmacy Report ---
Pharmacy PK ABX Note - Date of Service October 02, 2024 - Assessment and Plan Assessment * 73 year old F receiving cefepime and vancomycin for treatment of septic shock 2nd cellulitis and/or UTI with possible concern for osteomyelitis. Was originally receiving pressors in the ICU, but is being downgraded today. ID consulted by radio operator ground this AM. * PMH * Immunocompromised 2nd chronic prednisone and Aubagio for MS, rosacea on doxycycline chronically, chronic osteomyelitis of R fibula * Culture hx: CLABSI w E. faecalis, Group B Strep, and C. albicans, urine hx w ESBL Kleb pneumo and Pseudomonas * Recent admission in August 2024 for cellulitis - received cefepime, ceftriaxone, and daptomycin and was discharged on cephalexin * Pertinent microbiologic data this admission includes: * Blood cultures x3 (including fungal) pending * Urine culture with Pseudomonas * SCr slightly elevated from baseline, but trending down today Plan Vancomycin * Loading dose: 1500 mg IV x 1 * Maintenance dose: 1500 mg IV every 24 hours * Regimen is predicted to achieve target AUC/STEPHEN of 400-600 mg/L.hr * Random level ordered for tomorrow AM Pharmacy will continue to follow and will adjust dose/frequency as necessary. Thank you. Pharmacy has transitioned to AUC monitoring for vancomycin. AUC/STEPHEN is the preferred PK/PD target and is associated with decreased risk of nephrotoxicity compared to traditional trough targets.
[2024-10-02] MEDS: METOPROLOL SUCC 25MG EXT REL TAB PO SCH (20:17)
[2024-10-02] MEDS: MELATONIN 3 MG TAB PO SCH (20:17)
[2024-10-02] MEDS: CASPOFUNGIN 50 MG in SODIUM CHLORIDE 0.9% 250 ML IV SCH (20:35)
[2024-10-03] MEDS: VANCOMYCIN LEVEL ONE (04:53)
[2024-10-03] MEDS: VANCOMYCIN 1,500 MG in D5W 500mL (Use w/ NSS Shortage) IV SCH (05:21)
[2024-10-03 05:26] LABS: Hematocrit (blood only) 26.5 % (37.0-47.0); Hemoglobin 8.6 g/dl (12.0-16.0); Mean Corpuscular Hemoglobin 28.1 pg (25.0-34.0); Mean Corpuscular Hgb Conc 32.5 g/dL (32.0-36.0); Mean Corpuscular Volume 86.6 fL (80.0-100.0); Mean Platelet Volume 10.3 fL (9.4-12.4); Platelet Count 219 K/uL (130-400); RDW Coefficient of Variation 20.4 % (11.5-14.5); RDW Standard Deviation 64.7 fL (36.4-46.3); Red Blood Count 3.06 M/uL (4.20-5.40)
[2024-10-03 05:46] LABS: BUN Creatinine Ratio 28.4 (10-20); Calcium 8.1 mg/dl (8.6-10.3); Creatinine Clr Calc Pharmacy 51.1 ml/min; Magnesium 2.2 mg/dl (1.7-2.4); Phosphorus 2.5 mg/dl (2.5-4.9); Potassium 3.7 mmol/L (3.5-5.1)
--- NOTE | 2024-10-03 08:18 | Pharmacy Report ---
Pharmacy PK ABX Note - Date of Service October 03, 2024 - Assessment and Plan Assessment * 73 year old F receiving cefepime and vancomycin for treatment of septic shock 2nd cellulitis and/or UTI with possible concern for osteomyelitis. Was originally receiving pressors in the ICU, but is being downgraded today. ID consulted by cable dispatcher this AM. * PMH * Immunocompromised 2nd chronic prednisone and Aubagio for MS, rosacea on doxycycline chronically, chronic osteomyelitis of R fibula * Culture hx: CLABSI w E. faecalis, Group B Strep, and C. albicans, urine hx w ESBL Kleb pneumo and Pseudomonas * Recent admission in August 2024 for cellulitis - received cefepime, ceftriaxone, and daptomycin and was discharged on cephalexin * Pertinent microbiologic data this admission includes: * Blood cultures x3 (including fungal) pending * Urine culture with Pseudomonas * SCr slightly elevated from baseline, but trending down today 10/03 * While level today not supratherapeutic, AUCss for new regimen is now predicted to be slightly above goal. Will continue for today and assess scr (which has been somewhat labile) and Bayesian predictions tomorrow to determine next level. AUC 24-48 is predicted to be within goal range. * ID consult pending. Plan Vancomycin * Current regimen: 1500 mg IV every 24 hours -Started after this morning's level * Random level obtained 10/03/24 resulted as 9.5 mcg/mL. This is predicted to achieve target AUC/STEPHEN of 400-600 mg/L.hr * Predicted AUC at steady state: 627 mg/L.hr (590 AUC 24,48) * Continue 1500 mg IV every 24 hours * Will assess tomorrow to determine next level Pharmacy will continue to follow and will adjust dose/frequency as necessary. Thank you. Pharmacy has transitioned to AUC monitoring for vancomycin. AUC/STEPHEN is the preferred PK/PD target and is associated with decreased risk of nephrotoxicity compared to traditional trough targets.
[2024-10-03] MEDS: DULoxetine HCL 30 MG CAP PO SCH (08:36)
[2024-10-03] MEDS: OXYBUTYNIN CHLORIDE XL 5 MG TABCR PO SCH (08:36)
[2024-10-03] MEDS: MULTIVITAMIN TAB PO SCH (08:37)
[2024-10-03] MEDS: CHOLECALCIFEROL 25 MCG (1000 UNITS) TAB PO SCH (08:37)
[2024-10-03] MEDS: ATORVASTATIN 40 MG TAB PO SCH (08:37)
[2024-10-03] MEDS: ESCITALOPRAM OXALATE 20 MG TAB PO SCH (08:37)
[2024-10-03] MEDS: HYDROCORTISONE SOD 50 MG in SYRINGE 0 ML IV SCH (08:48)
--- NOTE | 2024-10-03 13:56 | Hospitalist Progress Note ---
Date of Service October 03, 2024 Assessment & Plan (1) Septic shock: (2) Lower extremity cellulitis: Plan: Kandy Shelby is a 73y/o F with PMHx significant for CAD, HTN, HLD, PAF, PSVT, nonrheumatic aortic valve stenosis, Raynaud's syndrome, history ESBL E. coli UTI, prior DVT with pulmonary emboli s/p IVC filter placement [on Eliquis], GERD with esophagitis, protein-calorie malnutrition, neurogenic bladder, multiple sclerosis [on chronic prednisone + Aubagio], polyneuropathy with chronic pain on Baclofen pump, tobacco use, anemia of chronic disease [baseline Hgb ~9-10], depression with anxiety, sicca syndrome, history of nonmelanoma skin cancer s/p Mohs operation, left breast cancer s/p radiation + surgery, rosacea [on doxycycline], right foot drop, bilateral lower extremity venous stasis, chronic osteomyelitis of the right fibula, chronic right lateral ankle wound and recurrent right lower extremity cellulitis who presented to the ED after a fall. Septic shock Cellulitis of legs- leg wound has been picture Urinary tract infection--POA Possible adrenal insufficiency on chronic prednisone use Urine culture: preliminary culture growing Pseudomonas Blood cultures Negative Has been on IV vancomycin, cefepime Also on Caspofungin-Has been discontinued Was on Vasopressors -discontinued Lactic acid levels normalized with IV fluids Appreciate critical care input and recommendation Infectious disease consulted-Awaiting input and recommendation Will consider imaging of lower extremities to rule out osteo if no improvement clinically Plan to transfer out of ICU today Taper hydrocortisone over 3 days back to home prednisone AM cortisol level is normal Mild troponin elevation Likely demand ischemia secondary to above Denies any chest pain, dyspnea Fall Fall precautions PT OT as able Subacute left glenoid fracture Incidental finding on CT CT showed: Subacute appearing left glenoid fracture with large focus of heterogeneous attenuation along the inferior margin of the glenohumeral joint likely representing a complex joint effusion. 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 Follows with Dr. Andrea Walker at [facility] On chronic prednisone therapy in addition to Aubagio. 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 Follows with [facility] for pump checks previously. Other Chronic Medical Conditions: GERD Depression with anxiety Polyneuropathy Continue home medications as able DVT Px: Eliquis Code Status Full Code Admission and Anticipated Discharge Date Admission Date: October 01, 2024 Subjective 10/03/2024 The patient was seen and examined in ICU She has been feeling much better and complains to have nonhealing ulcer in the right ankle on the lateral side and worried about having osteomyelitis Denies any fever and chills, no chest pain, palpitation or shortness of breath Remain generally weak and lethargic Review of Systems Review of Systems: All systems reviewed and are unremarkable except as noted below Physical Exam Physical Exam: Lying in bed without any acute distress Constitutional: well developed, well nourished and + ill appearing Eyes: PERRL, conjunctivae normal, anicteric sclerae Right periorbital bruising without any hematoma ENMT: external ear and nose normal, oropharynx normal Neck: trachea midline, no thyromegaly Respiratory: no respiratory distress Auscultation: + diminished lung sounds and + crackles (Minimal crackles at the bases) Cardiovascular: Rate/Rhythm: regular rate and regular rhythm; not tachycardic Heart Sounds: normal S1 and normal S2; no murmur Extremities: + edema (1+ leg edema bilaterally) Bilateral redness of the lower legs seems to be chronic. Movement of the joints of the legs not painful Gastrointestinal (Abdomen): Inspection/Auscultation: normal bowel sounds; abdomen not distended Percussion/Palpation: abdomen soft; abdomen nontender Musculoskeletal: No acute arthritis involving any of the joint Neurologic: normal touch/pain/proprioception and moves all extremities; no focal motor deficits Lymphatic: no cervical or axillary lymphadenopathy Results & Data Results & Data Vital Signs (Past 12 Hours) Vital Signs Temp Pulse Pulse Resp BP BP Pulse Ox 10/03/24 12:00 95 H 23 121/93 96 10/03/24 07:45 98 H 16 105/75 95 10/03/24 07:44 84 10/03/24 06:00 83 16 105/75 95 10/03/24 05:15 88 21 96 10/03/24 04:03 37.1 C 88 19 118/73 93 10/03/24 03:00 87 21 94 10/03/24 02:15 83 21 132/77 93 O2 Del Method 10/03/24 12:00 Room Air 10/03/24 07:45 Room Air 10/03/24 07:44 10/03/24 06:00 Room Air 10/03/24 05:15 Room Air 10/03/24 04:03 Room Air 10/03/24 03:00 Room Air 10/03/24 02:15 Room Air Laboratory Results Short CBC 10/03/24 Range/Units 05:17 WBC 10.70 (4.8-10.8) K/ul Hgb 8.6 L (12.0-16.0) g/dl Hct 26.5 L (37.0-47.0) % Plt Count 219 (130-400) K/uL BMP 10/03/24 05:17 Sodium 139 Potassium 3.7 Chloride 110 H Carbon Dioxide 23 BUN 27 H Creatinine 0.95 Glucose 98 Calcium 8.1 L Medications Administered Current Inpatient Medications Apixaban (Apixaban 5 Mg Tablet) 5 mg PO BID [facility] Stop: 11/01/24 10:29 Last Admin: 10/03/24 08:37 Dose: 5 mg Atorvastatin Calcium (Atorvastatin 40 Mg Tab) 40 mg PO QAM [facility] Stop: 11/02/24 08:59 Last Admin: 10/03/24 08:37 Dose: 40 mg Duloxetine HCl (Duloxetine Hcl 30 Mg Cap) 30 mg PO DAILY [facility] Stop: 11/02/24 08:59 Last Admin: 10/03/24 08:36 Dose: 30 mg Escitalopram Oxalate (Escitalopram Oxalate 20 Mg Tab) 20 mg PO QAM [facility] Stop: 11/02/24 08:59 Last Admin: 10/03/24 08:37 Dose: 20 mg Heparin Sodium (Beef Lung) (Heparin 10 Unit/Ml 5 Ml Flush) 5 ml FLUSH PRN PRN PRN Reason: Flush Stop: 11/01/24 04:28 Cefepime HCl (Maxipime 2000mg) 2,000 mg in 20 mls @ 5 mls/min IV Q12H [facility]; Protocol Stop: 10/08/24 22:59 Last Admin: 10/03/24 11:16 Dose: 5 mls/min Acetaminophen (Ofirmev) 1,000 mg in 100 mls @ 400 mls/hr IV Q8H PRN PRN Reason: Fever Stop: 10/04/24 17:37 Last Infusion: 10/02/24 13:34 Dose: Infused Hydrocortisone Sodium (Succinate 50 mg/ Syringe) 1 mls @ 4 mls/min IV Q12 [facility] Stop: 10/04/24 21:01 Last Admin: 10/03/24 08:48 Dose: 4 mls/min Hydrocortisone Sodium (Succinate 50 mg/ Syringe) 1 mls @ 4 mls/min IV QAM [facility] Stop: 10/06/24 09:01 Vancomycin HCl 1,500 mg/ (Dextrose) 530 mls @ 200 mls/hr IV Q24H [facility] Stop: 10/10/24 05:59 Last Infusion: 10/03/24 08:18 Dose: Infused Melatonin (Melatonin 3 Mg Tab) 3 mg PO HS [facility] Stop: 11/01/24 20:59 Last Admin: 10/02/24 20:17 Dose: 3 mg Metoprolol Succinate (Metoprolol Succ 25mg Ext Rel Tab) 25 mg PO BID [facility] Stop: 11/01/24 20:59 Last Admin: 10/03/24 08:37 Dose: 25 mg Miscellaneous (Teriflunomide [Aubagio] 14 Mg Tablet- Order Awaiting Action) 1 each N/A QS [facility] Stop: 11/01/24 15:59 Last Admin: 10/03/24 08:51 Dose: Not Given Miscellaneous Information (Vancomycin Consult Active) 1 each N/A UD PRN PRN Reason: Consult Stop: 10/31/24 10:57 Multivitamins (Multivitamin Tab) 1 tab PO DAILY [facility] Stop: 11/02/24 08:59 Last Admin: 10/03/24 08:37 Dose: 1 tab Oxybutynin Chloride (Oxybutynin Chloride Xl 5 Mg Tabcr) 15 mg PO QAM [facility] Stop: 11/02/24 08:59 Last Admin: 10/03/24 08:36 Dose: 15 mg Pantoprazole Sodium (Pantoprazole 40 Mg Tab) 40 mg PO QAM [facility] Stop: 11/01/24 10:29 Last Admin: 10/03/24 08:37 Dose: 40 mg Tizanidine HCl (Tizanidine Hcl 4 Mg Tablet) 4 mg PO Q6H PRN PRN Reason: Muscle Spasm Stop: 11/01/24 11:53 Vitamin D (Cholecalciferol 25 Mcg (1000 Units) Tab) 25 mcg PO QAM [facility] Stop: 11/02/24 08:59 Last Admin: 10/03/24 08:37 Dose: 25 mcg Patient. Past EKGs in our system but has not able to see in the patient's record for discharge wondering if it is a different way to the MR [facility] study showed that she there COVID-19 positive test (U07.1, COVID-19) with Acute Pneumonia (J12.89, Other viral pneumonia) (If respiratory failure or sepsis present, add as separate assessment
--- NOTE | 2024-10-03 15:16 | Infectious Disease Consult ---
Date of Service October 03, 2024 Telehealth Information I performed this visit using a real-time telehealth connection between my location and the patients location ([facility]). After connecting through interactive tele-video, patient was identified by name and date of and/or wristband check.Patient (or authorized healthcare healthcare representative) was informed that this was a telemedicine visit and it was being conducted confidentially over secure lines. My office door was closed and no one else was present in the room with me.Patient (or authorized healthcare healthcare representative) provided consent to proceed with the visit, expressed an understanding of privacy and security of the telemedicine visit, and gave permission to have a hospital healthcare representative in the room in order to assist with the visit and to conduct portions of the visit, as needed. I informed the patient (or authorized healthcare healthcare representative) that I reviewed their record and presented the opportunity for them to ask any questions regarding the visit today. The patient agreed to participate. Assessment & Plan (1) Complicated UTI (urinary tract infection): Plan: Assessment: PSA UTI Chronic R ankle wound w/ chronic OM of R fibula no obvious evidence of infection Venous stasis Hx of multiple sclerosis on chronic steroid and Aubagio, ESBL UTI Recommendations: - Continue cefepime at current dose (2 gm iv [id number]) - Stop vancomycin iv as soft tissue infection or OM seems less likely and cefepime may cover soft tissue even if the patient has some component of soft tissue infection if there is any. MRSA screen is negative. - Ciprofloxacin is the only oral option for the PSA in urine but it may interact with teriflunomide: combo may increase cipro levels, risk of QT prolongation, cardiac arrhythmias, and other adverse effects. If using cipro, monitor w/ repeat EKG. - Anticipate total 7 days of abx therapy from when full dose of cefepime was started. Based on clinical presentation and video-assisted physical exam, soft tissue infection seems less likely. I would focus on Pseudomonas for suspected UTI. I spent a total of 60 minutes coordinating, documenting, and providing care for this patient excluding time spent in the performance of separately billed services or time spent by another provider/QHP. History of Present Illness History of Present Illness This is a 73 y/o female (Kandy) w/ hx of multiple sclerosis on chronic steroid and Aubagio, R foot drop, b/l LE venous stasis, chronic OM of R fibula (but no evidence of OM w/in R tibia or fibula per MRI done on 09/14/24) w/ chronic R lateral ankle wound and recurrent RLE cellulitis, ESBL E coli UTI, CAD, HTN, AV stenosis, PAF, PE s/p IVC filter on eliquis, polyneuropathy ow/ chrnic pain on baclofen pump, and L breast CA s/p radiation and surgery. The patient presented to ED on 10/01/24 after a fall. She started having fever and generalized wea kness on 09/30/24, and when she woke up in the middle of the night and fell on her wheelchair as she roled out of her bed and hit her face. Found to have fever and refractory hypotension, requiring vasopressor. She self-catherizes to urinate. She denies dysuria or flank pain. Denies any pain in her R leg or any changes on R leg skin color. Her R misti wound appears unchanged per patient. Denies abd pain, n/v, or coughing. She is not a good historian. Currently on vancomycin iv and cefepime. Al, a nursing staff, assisted during the patient encounter as the patient found it difficult hear me via the ipad. Allergies Allergy/AdvReac Type Severity Reaction Status Date / Time No Known Allergies Allergy Verified 08/28/24 12:57 Home Medications Medication Instructions Recorded Confirmed Type cholecalciferol (vitamin D3) 25 2,000 units PO QAM 09/18/18 10/01/24 History mcg (1,000 unit) capsule escitalopram oxalate 20 mg tablet 20 mg PO QAM 09/18/18 10/01/24 History (Lexapro) oxybutynin chloride 15 mg 15 mg PO QAM 09/18/18 10/01/24 History tablet,extended release 24 hr prednisone 10 mg tablet 10 mg PO QAM 09/18/18 10/01/24 History omeprazole 40 mg capsule,delayed 40 mg PO QAM 07/06/21 10/01/24 History release teriflunomide 14 mg tablet 14 mg PO QPM 05/13/22 10/01/24 History (Aubagio) doxycycline hyclate 50 mg capsule 50 mg PO Q2D Rosacea 08/10/22 10/01/24 History melatonin 3 mg tablet 3 mg PO HS 03/05/23 10/01/24 History multivitamin 1 tab PO DAILY 03/05/23 10/01/24 History Baclofen Pump 0 mg SC DIRECTED 08/05/23 10/01/24 History apixaban 5 mg tablet (Eliquis) 5 mg PO BID 02/03/24 10/01/24 History atorvastatin 40 mg tablet 40 mg PO QAM 09/13/24 10/01/24 History duloxetine 30 mg capsule,delayed 30 mg PO DAILY 09/13/24 10/01/24 History release metoprolol succinate 25 mg 25 mg PO BID 10/01/24 10/01/24 History tablet,extended release 24 hr tizanidine 4 mg tablet (Zanaflex) 4 mg PO Q6H PRN Muscle Spasm 10/01/24 10/01/24 History Patient History Medical History Osteoarthritis of right knee Cellulitis of right lower extremity Anemia Cellulitis Acute leg pain Fever History of recent hospitalization 09/2022 [facility] - sepsis History of blood transfusion Limb alert care status left arm Osteoarthritis of right shoulder History of GI bleed Upper GIB (2019) felt 2/2 NSAID use History of non-ST elevation myocardial infarction (NSTEMI) 06/2021 (had heart cath, no stents) Hx of gastric ulcer 02/2021 Anemia Hypertension controlled, stable per pt Surgical History History of removal of Port-a-Cath (02/09/24) Mediport Removal(Right) - Tristin Lazo DO Port-A-Cath in place (09/29/23) A-Port Insertion, right internal jugular(Right) - Tristin Lazo DO S/p reverse total shoulder arthroplasty right: 05/25/22 LMA#4. No postop issues per anesthesia progress note. History of cardiac cath Cardiac cath (07/06/21; [facility]) > Right dominant coronary system. No evidence of aortic stenosis. Normal left ventricular filling pressures. Nonobstructive disease involving the ostial LAD. No evidence of acute coronary syndrome. Approximately 50% ostial stenosis of the LAD. There was some very mild disease at the ostium of the left circumflex. Recommendations: Medical management. History of esophagogastroduodenoscopy (EGD) History of colonoscopy History of tooth extraction Family History Mother Heart disorder Other No family history of adverse response to anesthesia Social History Smoking Status: Former smoker Tobacco Type: Cigarettes packs per day: 1; Cigarettes Per Day: stopped in 1977; Second Hand Exposure: No; Do You Dip or Chew Tobacco: No; Hx Alcohol Use: No Hx Substance Use: No Preferred Language: Hungarian Communication Ability: Effective Visual Impairment: Limited Hearing Ability: Use of Hearing Aid Appeals Referee Required: No Beliefs That Will Affect Care: None marital status: / Current Living Situation: Alone Current Living Situation Comment: daughters are an hour away but check on her frequently per pt current occupational status: retired How many Children do You have: 3 Feels Safe at Home: Yes Childhood Exposure to Second-Hand Smoke: Yes Diet: regular caffeine: Yes Assistive Devices: Walker and Wheelchair Review of Systems as HPI and all others negative Physical Exam Gen: no acute distress HEENT: echymosis noted in R periocular area Lungs: breathing comfortably on room air Ext: dark purplish brown skin changes noted on LE b/l w/o obvious erythema, R ankle wound, ~subcm, no obvious drainage (picture on EMR reviewed), no warmth per Al, no tenderness Results & Data Vital Signs (Past 12 Hours) Vital Signs Temp Pulse Pulse Resp BP BP Pulse Ox 10/03/24 12:00 95 H 23 121/93 96 10/03/24 07:45 98 H 16 105/75 95 10/03/24 07:44 84 10/03/24 06:00 83 16 105/75 95 10/03/24 05:15 88 21 96 10/03/24 04:03 37.1 C 88 19 118/73 93 O2 Del Method 10/03/24 12:00 Room Air 10/03/24 07:45 Room Air 10/03/24 07:44 10/03/24 06:00 Room Air 10/03/24 05:15 Room Air 10/03/24 04:03 Room Air Laboratory Results WBC 14.6K -> 10.7K H 8.6 Plt 219K Cr 0.95 (CrCl 51.1) LA 3.4 -> 1.6 PCT 5.3 Blood cx (10/01): NGTD UA (10/01): WBC 11-20 U cx (10/01): PSA (loza S) MRSA screen neg (10/01) QTcB Int : 451 ms MRI of RLE (09/14/24): 1. No evidence for osteomyelitis within the right tibia or fibula. 2. Right lower leg subcutaneous fluid which could reflect cellulitis or edema. No fluid collection to suggest abscess. CT A/P (10/01): no acute finding Cervical spine CT (10/01): no acute finding CT chest (10/01): subacute appearing L glenoid fxr w/ large focus of heterogenous attenuation along the inferior margin of the GH joint likely representing a complex joint effusion CT head/face (10/01): no fracture but R periorbital contusion
[2024-10-04] MEDS: POTASSIUM CHLORIDE CRTAB 20 MEQ TABCR PO STA (01:58)
[2024-10-04] MEDS: METOPROLOL SUCC 25MG EXT REL TAB PO STA (01:59)
[2024-10-04 10:35] LABS: Creatinine Clr Calc Pharmacy 62.6 ml/min
--- NOTE | 2024-10-04 15:02 | Hospitalist Progress Note ---
Date of Service October 04, 2024 Assessment & Plan (1) Septic shock: (2) Lower extremity cellulitis: Plan: Kandy Shelby is a 73y/o F with PMHx significant for CAD, HTN, HLD, PAF, PSVT, nonrheumatic aortic valve stenosis, Raynaud's syndrome, history ESBL E. coli UTI, prior DVT with pulmonary emboli s/p IVC filter placement [on Eliquis], GERD with esophagitis, protein-calorie malnutrition, neurogenic bladder, multiple sclerosis [on chronic prednisone + Aubagio], polyneuropathy with chronic pain on Baclofen pump, tobacco use, anemia of chronic disease [baseline Hgb ~9-10], depression with anxiety, sicca syndrome, history of nonmelanoma skin cancer s/p Mohs operation, left breast cancer s/p radiation + surgery, rosacea [on doxycycline], right foot drop, bilateral lower extremity venous stasis, chronic osteomyelitis of the right fibula, chronic right lateral ankle wound and recurrent right lower extremity cellulitis who presented to the ED after a fall. Septic shock Cellulitis of legs- leg wound has been picture Urinary tract infection--POA Possible adrenal insufficiency on chronic prednisone use Urine culture: preliminary culture growing Pseudomonas Blood cultures Negative Has been on IV vancomycin, cefepime Also on Caspofungin-Has been discontinued Was on Vasopressors -discontinued Lactic acid levels normalized with IV fluids Appreciate critical care input and recommendation Infectious disease consulted-Awaiting input and recommendation Will consider imaging of lower extremities to rule out osteo if no improvement clinically Plan to transfer out of ICU today Taper hydrocortisone over 3 days back to home prednisone AM cortisol level is normal Clinically much better and denies any significant symptoms She will have PT and OT evaluation and likely discharge tomorrow Remains on intravenous cefepime which can be changed to oral Cipro on discharge to finish a course of 7 days in total Mild troponin elevation Likely demand ischemia secondary to above Denies any chest pain, dyspnea Fall Fall precautions PT OT as able Subacute left glenoid fracture Incidental finding on CT CT showed: Subacute appearing left glenoid fracture with large focus of heterogeneous attenuation along the inferior margin of the glenohumeral joint likely representing a complex joint effusion. 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 Follows with Dr. Andrea Walker at [facility] On chronic prednisone therapy in addition to Aubagio. May need higher dose of prednisone from baseline based on cortisol levels Cortisol level has been normal and will not change the current dose of prednisone as an outpatient Anemia of Chronic Disease: Monitor CBC Chronic Back Pain: Patient with an indwelling intrathecal Baclofen pump in place [employer]. Follows with [facility] for pump checks previously. Other Chronic Medical Conditions: GERD Depression with anxiety Polyneuropathy Continue home medications as able DVT Px: Eliquis Code Status Full Code Admission and Anticipated Discharge Date Admission Date: October 01, 2024 Subjective 10/03/2024 The patient was seen and examined in ICU She has been feeling much better and complains to have nonhealing ulcer in the right ankle on the lateral side and worried about having osteomyelitis Denies any fever and chills, no chest pain, palpitation or shortness of breath Remain generally weak and lethargic 10/04/2024 The patient was seen and examined in telemetry unit She has been feeling much better and is out of bed on a chair Remains weak but condition is improved compared with yesterday She will have PT and OT evaluation and likely discharge tomorrow Review of Systems Review of Systems: All systems reviewed and are unremarkable except as noted below Physical Exam Physical Exam: Lying in bed without any acute distress Constitutional: well developed, well nourished and + ill appearing Eyes: PERRL, conjunctivae normal, anicteric sclerae ENMT: external ear and nose normal, oropharynx normal Neck: trachea midline, no thyromegaly Respiratory: no respiratory distress Auscultation: + diminished lung sounds and + crackles (Minimal crackles at the bases) Cardiovascular: Rate/Rhythm: regular rate and regular rhythm; not tachycardic Heart Sounds: normal S1, normal S2 and + murmur Extremities: + edema (1+ leg edema bilaterally) Gastrointestinal (Abdomen): Inspection/Auscultation: normal bowel sounds; abdomen not distended Percussion/Palpation: abdomen soft; abdomen nontender Neurologic: normal touch/pain/proprioception and moves all extremities; no focal motor deficits Lymphatic: no cervical or axillary lymphadenopathy Results & Data Results & Data Vital Signs (Past 12 Hours) Vital Signs Temp Pulse Pulse Resp BP Pulse Ox O2 Del Method 10/04/24 14:23 87 10/04/24 11:40 36.7 C 76 18 142/85 H 97 Room Air 10/04/24 11:31 36.9 C 98 H 18 124/68 96 Room Air 10/04/24 08:00 77 10/04/24 08:00 36.8 C 89 20 138/63 97 Room Air Laboratory Results BMP 10/04/24 09:54 Creatinine 0.78 Medications Administered Current Inpatient Medications Apixaban (Apixaban 5 Mg Tablet) 5 mg PO BID [facility] Stop: 11/01/24 10:29 Last Admin: 10/04/24 08:47 Dose: 5 mg Atorvastatin Calcium (Atorvastatin 40 Mg Tab) 40 mg PO QAM MICHEL[facility] Stop: 11/02/24 08:59 Last Admin: 10/04/24 08:47 Dose: 40 mg Duloxetine HCl (Duloxetine Hcl 30 Mg Cap) 30 mg PO DAILY [facility] Stop: 11/02/24 08:59 Last Admin: 10/04/24 08:48 Dose: 30 mg Escitalopram Oxalate (Escitalopram Oxalate 20 Mg Tab) 20 mg PO QAM MICHELLE Stop: 11/02/24 08:59 Last Admin: 10/04/24 08:48 Dose: 20 mg Heparin Sodium (Beef Lung) (Heparin 10 Unit/Ml 5 Ml Flush) 5 ml FLUSH PRN PRN PRN Reason: Flush Stop: 11/01/24 04:28 Cefepime HCl (Maxipime 2000mg) 2,000 mg in 20 mls @ 5 mls/min IV Q12H MICHELLE; Protocol Stop: 10/08/24 22:59 Last Admin: 10/04/24 11:19 Dose: 5 mls/min Acetaminophen (Ofirmev) 1,000 mg in 100 mls @ 400 mls/hr IV Q8H PRN PRN Reason: Fever Stop: 10/04/24 17:37 Last Infusion: 10/02/24 13:34 Dose: Infused Hydrocortisone Sodium (Succinate 50 mg/ Syringe) 1 mls @ 4 mls/min IV Q12 MICHELLE Stop: 10/04/24 21:01 Last Admin: 10/04/24 09:42 Dose: 4 mls/min Hydrocortisone Sodium (Succinate 50 mg/ Syringe) 1 mls @ 4 [facility] [place]: 10/06/24 09:01 Melatonin (Melatonin 3 Mg Tab) 3 mg PO HS [facility] Stop: 11/01/24 20:59 Last Admin: 10/03/24 21:54 Dose: 3 mg Metoprolol Succinate (Metoprolol Succ 25mg Ext Rel Tab) 25 mg PO BID [facility] Stop: 11/03/24 20:59 Miscellaneous (Teriflunomide [Aubagio] 14 Mg Tablet- Order Awaiting Action) 1 each N/A QS [facility] Stop: 11/01/24 15:59 Last Admin: 10/03/24 08:51 Dose: Not Given Multivitamins (Multivitamin Tab) 1 tab PO DAILY [facility] Stop: 11/02/24 08:59 Last Admin: 10/04/24 08:49 Dose: 1 tab Oxybutynin Chloride (Oxybutynin Chloride Xl 5 Mg Tabcr) 15 mg PO [facility] Stop: 11/02/24 08:59 Last Admin: 10/04/24 08:49 Dose: 15 mg Pantoprazole Sodium (Pantoprazole 40 Mg Tab) [facility] [place] Stop: 11/01/24 10:29 Last Admin: 10/04/24 08:49 Dose: 40 mg Tizanidine HCl (Tizanidine Hcl 4 Mg Tablet) 4 mg PO Q6H PRN PRN Reason: Muscle Spasm Stop: 11/01/24 11:53 Vitamin D (Cholecalciferol 25 Mcg (1000 Units) Tab) 25 mcg [facility] [place] Stop: 11/02/24 08:59 Last Admin: 10/04/24 08:47 Dose: 25 mcg
[2024-10-04] MEDS: METOPROLOL SUCC 25MG EXT REL TAB PO SCH (20:40)
[2024-10-05] MEDS: HYDROCORTISONE SOD 50 MG in SYRINGE 0 ML IV SCH (08:39)
[2024-10-05] MEDS ORDERED: POTASSIUM PHOS 3 MMOL/1 ML INFUSION IV STA (13:33)
--- NOTE | 2024-10-05 13:36 | Hospitalist Progress Note ---
Date of Service October 05, 2024 Assessment & Plan (1) Septic shock: (2) Lower extremity cellulitis: Plan: Kandy Shelby is a 73y/o F with PMHx significant for CAD, HTN, HLD, PAF, PSVT, nonrheumatic aortic valve stenosis, Raynaud's syndrome, history ESBL E. coli UTI, prior DVT with pulmonary emboli s/p IVC filter placement [on Eliquis], GERD with esophagitis, protein-calorie malnutrition, neurogenic bladder, multiple sclerosis [on chronic prednisone + Aubagio], polyneuropathy with chronic pain on Baclofen pump, tobacco use, anemia of chronic disease [baseline Hgb ~9-10], depression with anxiety, sicca syndrome, history of nonmelanoma skin cancer s/p Mohs operation, left breast cancer s/p radiation + surgery, rosacea [on doxycycline], right foot drop, bilateral lower extremity venous stasis, chronic osteomyelitis of the right fibula, chronic right lateral ankle wound and recurrent right lower extremity cellulitis who presented to the ED after a fall. Septic shock Cellulitis of legs- leg wound has been picture Urinary tract infection--POA Possible adrenal insufficiency on chronic prednisone use Urine culture: preliminary culture growing Pseudomonas Blood cultures Negative Has been on IV vancomycin, cefepime Also on Caspofungin-Has been discontinued Was on Vasopressors -discontinued Lactic acid levels normalized with IV fluids Appreciate critical care input and recommendation Infectious disease consulted-Awaiting input and recommendation Will consider imaging of lower extremities to rule out osteo if no improvement clinically Plan to transfer out of ICU today Taper hydrocortisone over 3 days back to home prednisone AM cortisol level is normal Clinically much better and denies any significant symptoms She will have PT and OT evaluation and likely discharge tomorrow Remains on intravenous cefepime which can be changed to oral Cipro on discharge to finish a course of 7 days in total EKG did not show any QT prolongation and will start Cipro and repeat EKG tomorrow prior to discharge lower History of PE will hold her antipsychotic medications as long as she will be on Cipro surgeries. Will give a small dose of Ativan if needed for anxiety see intravenous cortisol will be done by tomorrow she said Hypertension Blood pressure is noted to very high at 188/105 Will give additional dose of Lopressor 25 mg p.o. x 1 Will also give 1 inch of NTP Mild troponin elevation Likely demand ischemia secondary to above Denies any chest pain, dyspnea Fall Fall precautions PT OT as able Subacute left glenoid fracture Incidental finding on CT CT showed: Subacute appearing left glenoid fracture with large focus of heterogeneous attenuation along the inferior margin of the glenohumeral joint likely representing a complex joint effusion. 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 Follows with Dr. Andrea Walker at [facility] On chronic prednisone therapy in addition to Aubagio. May need higher dose of prednisone from baseline based on cortisol levels Cortisol level has been normal and will not change the current dose of prednisone as an outpatient Anemia of Chronic Disease: Monitor CBC Chronic Back Pain: Patient with an indwelling intrathecal Baclofen pump in place [employer]. Follows with [facility] for pump checks previously. Other Chronic Medical Conditions: GERD Depression with anxiety Polyneuropathy Continue home medications as able DVT Px: Eliquis Code Status Full Code Admission and Anticipated Discharge Date Admission Date: October 01, 2024 Subjective 10/03/2024 The patient was seen and examined in ICU She has been feeling much better and complains to have nonhealing ulcer in the r ight ankle on the lateral side and worried about having osteomyelitis Denies any fever and chills, no chest pain, palpitation or shortness of breath Remain generally weak and lethargic 10/04/2024 The patient was seen and examined in telemetry unit She has been feeling much better and is out of bed on a chair Remains weak but condition is improved compared with yesterday She will have PT and OT evaluation and likely discharge tomorrow 10/05/2024 The patient was seen and examined in telemetry unit She has been feeling much better and has had physical therapy recommended rehab She does not want to go to rehab and wants to go home Her Zuñiga will be taken out and most likely she will be discharged home tomorrow on oral Cipro for the next 2 or 3 days she Review of Systems Review of Systems: All systems reviewed and are unremarkable except as noted below Physical Exam Physical Exam: Lying in bed without any acute distress Constitutional: well developed, well nourished and + ill appearing Eyes: PERRL, conjunctivae normal, anicteric sclerae ENMT: external ear and nose normal, oropharynx normal Neck: trachea midline, no thyromegaly Respiratory: no respiratory distress Auscultation: + diminished lung sounds and + crackles (Minimal crackles at the bases) Cardiovascular: Rate/Rhythm: regular rate and regular rhythm; not tachycardic Heart Sounds: normal S1, normal S2 and + murmur Extremities: + edema (1+ leg edema bilaterally) Gastrointestinal (Abdomen): Inspection/Auscultation: normal bowel sounds; abdomen not distended Percussion/Palpation: abdomen soft; abdomen nontender Neurologic: normal touch/pain/proprioception and moves all extremities; no focal motor deficits Lymphatic: no cervical or axillary lymphadenopathy Results & Data Results & Data Vital Signs (Past 12 Hours) Vital Signs Temp Pulse Pulse Resp BP Pulse Ox O2 Del Method 10/05/24 12:30 188/105 H 10/05/24 12:01 75 10/05/24 07:50 36.9 C 80 20 144/87 H 98 Room Air 10/05/24 07:31 Room Air 10/05/24 03:35 37.0 C 82 18 154/93 H 97 Room Air Laboratory Results BMP 10/05/24 05:35 Creatinine 0.73 Medications Administered Current Inpatient Medications Apixaban (Apixaban 5 Mg Tablet) 5 mg PO BID [facility] Stop: 11/01/24 10:29 Last Admin: 10/05/24 08:39 Dose: 5 mg Atorvastatin Calcium (Atorvastatin 40 Mg Tab) 40 mg PO [facility] Stop: 11/02/24 08:59 Last Admin: 10/05/24 08:39 Dose: 40 mg Ciprofloxacin (Ciprofloxacin 500 Mg Tab) 500 mg PO BID [facility]; Protocol Stop: 10/10/24 20:59 Duloxetine HCl (Duloxetine Hcl 30 Mg Cap) 30 mg PO DAILY [facility] Stop: 11/02/24 08:59 Last Admin: 10/05/24 08:39 Dose: 30 mg Escitalopram Oxalate (Escitalopram Oxalate 20 Mg Tab) 20 mg PO QAM [facility] Stop: 11/02/24 08:59 Last Admin: 10/05/24 08:39 Dose: 20 mg Heparin Sodium (Beef Lung) (Heparin 10 Unit/Ml 5 Ml Flush) 5 ml FLUSH PRN PRN PRN Reason: Flush Stop: 11/01/24 04:28 Hydrocortisone Sodium (Succinate 50 mg/ Syringe) 1 mls @ 4 mls/min IV QAM [facility] Stop: 10/06/24 09:01 Last Admin: 10/05/24 08:39 Dose: 4 mls/min Melatonin (Melatonin 3 Mg Tab) 3 mg PO HS [facility]HEL[facility] Stop: 11/01/24 20:59 Last Admin: 10/04/24 20:40 Dose: 3 mg Metoprolol Succinate (Metoprolol Succ 25mg Ext Rel Tab) 25 mg PO BID [facility] Stop: 11/03/24 20:59 Last Admin: 10/05/24 08:39 Dose: 25 mg Metoprolol Tartrate (Metoprolol Tartrate 25 Mg Tab) 25 mg PO NOW STA Stop: 10/05/24 13:29 Miscellaneous (Teriflunomide [Aubagio] 14 Mg Tablet- Order Awaiting Action) 1 each N/A QS [facility] Stop: 11/01/24 15:59 Last Admin: 10/03/24 08:51 Dose: Not Given Multivitamins (Multivitamin Tab) 1 tab PO DAILY [facility] Stop: 11/02/24 08:59 Last Admin: 10/05/24 08:39 Dose: 1 tab Nitroglycerin (Nitroglycerin 2% Ointment 30gm Tube) 1 inch EXT NOW STA Stop: 10/05/24 13:28 Oxybutynin Chloride (Oxybutynin Chloride Xl 5 Mg Tabcr) [facility] [place]: 11/02/24 08:59 Last Admin: 10/05/24 08:39 Dose: 15 mg Pantoprazole Sodium (Pantoprazole 40 Mg Tab) 40 mg PO [facility] Stop: 11/01/24 10:29 Last Admin: 10/05/24 08:39 Dose: 40 mg Tizanidine HCl (Tizanidine Hcl 4 Mg Tablet) 4 mg PO Q6H PRN PRN Reason: Muscle Spasm Stop: 11/01/24 11:53 Vitamin D (Cholecalciferol 25 Mcg (1000 Units) Tab) 25 mcg [facility] [place]: 11/02/24 08:59 Last Admin: 10/05/24 08:39 Dose: 25 mcg
[2024-10-05] MEDS: NITROGLYCERIN 2% OINTMENT 30GM TUBE EXT STA (13:49)
--- NOTE | 2024-10-05 13:51 | Electrocardiogram Report ---
Test Reason : Blood Pressure : */* mmHG Vent. Rate : 82 BPM Atrial Rate : 82 BPM P-R Int : 160 ms QRS Dur : 74 ms QT Int : 354 ms P-R-T Axes : 49 10 62 degrees QTcB Int : 413 ms Normal sinus rhythm Septal infarct (cited on or before 10-Feb-2024) Abnormal ECG When compared with ECG of 01-Oct-2024 10:49, Premature ventricular complexes are no longer Present Vent. rate has decreased by 64 bpm Questionable change in QRS axis ST no longer depressed in Lateral leads Nonspecific T wave abnormality no longer evident in Lateral leads Confirmed by Louis Jerome [id number] on 10/05/2024 1:51:14 PM Referred By: REFERRED SELF Confirmed By: Louis Jerome
[2024-10-05] MEDS: POT PHOSPHATE MONOBASIC W/ SOD TAB PO SCH (14:06)
[2024-10-05] MEDS: METOPROLOL TARTRATE 25 MG TAB PO STA (14:06)
[2024-10-05] MEDS: CIPROFLOXACIN 500 MG TAB PO SCH (20:28)
[2024-10-06 08:17] LABS: BUN Creatinine Ratio 31.9 (10-20); Calcium 8.7 mg/dl (8.6-10.3); Creatinine Clr Calc Pharmacy 67.9 ml/min; Magnesium 1.8 mg/dl (1.7-2.4); Potassium 3.6 mmol/L (3.5-5.1)
--- NOTE | 2024-10-06 10:23 | Hospitalist Progress Note ---
Date of Service October 06, 2024 Assessment & Plan (1) Septic shock: (2) Lower extremity cellulitis: Plan: Kandy Shelby is a 73y/o F with PMHx significant for CAD, HTN, HLD, PAF, PSVT, nonrheumatic aortic valve stenosis, Raynaud's syndrome, history ESBL E. coli UTI, prior DVT with pulmonary emboli s/p IVC filter placement [on Eliquis], GERD with esophagitis, protein-calorie malnutrition, neurogenic bladder, multiple sclerosis [on chronic prednisone + Aubagio], polyneuropathy with chronic pain on Baclofen pump, tobacco use, anemia of chronic disease [baseline Hgb ~9-10], depression with anxiety, sicca syndrome, history of nonmelanoma skin cancer s/p Mohs operation, left breast cancer s/p radiation + surgery, rosacea [on doxycycline], right foot drop, bilateral lower extremity venous stasis, chronic osteomyelitis of the right fibula, chronic right lateral ankle wound and recurrent right lower extremity cellulitis who presented to the ED after a fall. Septic shock Cellulitis of legs- leg wound has been pictured Urinary tract infection--POA Possible adrenal insufficiency on chronic prednisone use Urine culture: preliminary culture growing Pseudomonas Blood cultures Negative Has been on IV vancomycin, cefepime Also on Caspofungin-Has been discontinued Was on Vasopressors -discontinued Lactic acid levels normalized with IV fluids Appreciate critical care input and recommendation Infectious disease consulted-Awaiting input and recommendation Will consider imaging of lower extremities to rule out osteo if no improvement clinically Plan to transfer out of ICU today Taper hydrocortisone over 3 days back to home prednisone AM cortisol level is normal Clinically much better and denies any significant symptoms She will have PT and OT evaluation and likely discharge tomorrow Remains on intravenous cefepime which can be changed to oral Cipro on discharge to finish a course of 7 days in total EKG did not show any QT prolongation and will start Cipro and repeat EKG tomorrow prior to discharge lower History of PE will hold her antipsychotic medications as long as she will be on Cipro surgeries. Will give a small dose of Ativan if needed for anxiety see intravenous cortisol will be done by tomorrow she said Remains stable without any anxiety and/or depression Will be discharged home this afternoon with home health Hypertension Blood pressure is noted to very high at 188/105 Will give additional dose of Lopressor 25 mg p.o. x 1 Will also give 1 inch of NTP Blood pressure remains stable and on the upper side at 178/93 Mild troponin elevation Likely demand ischemia secondary to above Denies any chest pain, dyspnea Fall Fall precautions Strongly advised to take precautions to avoid falls She refused to go to rehab She will continue to have home PT and OT as planned Subacute left glenoid fracture Incidental finding on CT CT showed: Subacute appearing left glenoid fracture with large focus of heterogeneous attenuation along the inferior margin of the glenohumeral joint likely representing a complex joint effusion. 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 Follows with Dr. Andrea Walker at [facility] On chronic prednisone therapy in addition to Aubagio. May need higher dose of prednisone from baseline based on cortisol levels Cortisol level has been normal and will not change the current dose of prednisone as an outpatient Anemia of Chronic Disease: Monitor CBC Chronic Back Pain: Patient with an indwelling intrathecal Baclofen pump in place [employer]. Follows with [facility] for pump checks previously. Other Chronic Medical Conditions: GERD Depression with anxiety Polyneuropathy Continue home medications as able DVT Px: Eliquis Code Status Full Code Admission and Anticipated Discharge Date Admission Date: October 01, 2024 Subjective 10/03/2024 The patient was seen and examined in ICU She has been feeling much better and complains to have nonhealing ulcer in the right ankle on the lateral side and worried about having osteomyelitis Denies any fever and chills, no chest pain, palpitation or shortness of breath Remain generally weak and lethargic 10/04/2024 The patient was seen and examined in telemetry unit She has been feeling much better and is out of bed on a chair Remains weak but condition is improved compared with yesterday She will have PT and OT evaluation and likely discharge tomorrow 10/05/2024 The patient was seen and examined in telemetry unit She has been feeling much better and has had physical therapy recommended rehab She does not want to go to rehab and wants to go home Her Zuñiga will be taken out and most likely she will be discharged home tomorrow on oral Cipro for the next 2 or 3 days she 10/06/2024 The patient was seen and examined in telemetry unit She has been feeling much better and feels that she can go home this afternoon She denies any significant symptoms Review of Systems Review of Systems: All systems reviewed and are unremarkable except as noted below Physical Exam Physical Exam: Lying in bed without any acute distress Constitutional: well developed, well nourished and + ill appearing Eyes: PERRL, conjunctivae normal, anicteric sclerae ENMT: external ear and nose normal, oropharynx normal Neck: trachea midline, no thyromegaly Respiratory: no respiratory distress Auscultation: + diminished lung sounds and + crackles (Minimal crackles at the bases) Cardiovascular: Rate/Rhythm: regular rate and regular rhythm; not tachycardic Heart Sounds: normal S1, normal S2 and + murmur Extremities: + edema (1+ leg edema bilaterally) Gastrointestinal (Abdomen): Inspection/Auscultation: normal bowel sounds; abdomen not distended Percussion/Palpation: abdomen soft; abdomen nontender Skin: Right lateral malleolar wound remains stable Neurologic: normal touch/pain/proprioception and moves all extremities; no focal motor deficits Lymphatic: no cervical or axillary lymphadenopathy Results & Data Results & Data Vital Signs (Past 12 Hours) Vital Signs Temp Pulse Pulse Resp BP Pulse Ox O2 Del Method 10/06/24 08:16 36.8 C 73 18 178/93 H 96 Room Air 10/06/24 08:00 71 10/06/24 07:15 Room Air 10/06/24 02:43 36.8 C 108 H 18 138/78 95 Room Air 10/05/24 22:44 36.5 C 71 18 147/85 H 94 Room Air Laboratory Results [facility] 10/06/24 07:02 Sodium 141 Potassium 3.6 Chloride 107 Carbon Dioxide 29 BUN 23 Creatinine 0.72 Glucose 85 Calcium 8.7 Medications Administered Current Inpatient Medications Apixaban (Apixaban 5 Mg Tablet) 5 mg PO BID [facility] Stop: 11/01/24 10:29 Last Admin: 10/06/24 08:37 Dose: 5 mg Atorvastatin Calcium (Atorvastatin 40 Mg Tab) 40 mg PO QAM [facility] Stop: 11/02/24 08:59 Last Admin: 10/06/24 08:37 Dose: 40 mg Ciprofloxacin (Ciprofloxacin 500 Mg Tab) 500 mg PO BID [facility]; Protocol Stop: 10/10/24 20:59 Last Admin: 10/06/24 08:36 Dose: 500 mg Duloxetine HCl (Duloxetine Hcl 30 Mg Cap) 30 mg PO DAILY [facility] Stop: 11/02/24 08:59 Last Admin: 10/05/24 08:39 Dose: 30 mg Escitalopram Oxalate (Escitalopram Oxalate 20 Mg Tab) 20 mg PO QAM [facility] Stop: 11/02/24 08:59 Last Admin: 10/05/24 08:39 Dose: 20 mg Heparin Sodium (Beef Lung) (Heparin 10 Unit/Ml 5 Ml Flush) 5 ml FLUSH PRN PRN PRN Reason: Flush Stop: 11/01/24 04:28 Melatonin (Melatonin 3 Mg Tab) 3 mg PO HS [facility] Stop: 11/01/24 20:59 Last Admin: 10/05/24 22:14 Dose: 3 mg Metoprolol Succinate (Metoprolol Succ 25mg Ext Rel Tab) 25 mg PO BID [facility] Stop: 11/03/24 20:59 Last Admin: 10/06/24 08:37 Dose: 25 mg Miscellaneous (Teriflunomide [Aubagio] 14 Mg Tablet- Order Awaiting Action) 1 each N/A QS [facility] Stop: 11/01/24 15:59 Last Admin: 10/03/24 08:51 Dose: Not Given Multivitamins (Multivitamin Tab) 1 tab PO DAILY [facility] Stop: 11/02/24 08:59 Last Admin: 10/06/24 08:37 Dose: 1 tab Oxybutynin Chloride (Oxybutynin Chloride Xl 5 Mg Tabcr) [facility] Stop: 11/02/24 08:59 Last Admin: 10/06/24 08:37 Dose: 15 mg Pantoprazole Sodium (Pantoprazole 40 Mg Tab) 40 mg PO QAM [facility] Stop: 11/01/24 10:29 Last Admin: 10/06/24 08:37 Dose: 40 mg Tizanidine HCl (Tizanidine Hcl 4 Mg Tablet) 4 mg PO Q6H PRN PRN Reason: Muscle Spasm Stop: 11/01/24 11:53 Vitamin D (Cholecalciferol 25 Mcg (1000 Units) Tab) 25 mcg PO QAM [facility] Stop: 11/02/24 08:59 Last Admin: 10/06/24 08:37 Dose: 25 mcg
[2024-10-06] MEDS: CEFEPIME 2000MG 2,000 MG/20 ML SYR IV SCH (14:37)
[2024-10-06] MEDS: SODIUM CHLORIDE 0.9% 500 ML IV ONE (22:11)
[2024-10-07 08:17] VITALS: BP 153/91; RESP 16; TEMP 97.7; O2SAT 97
--- NOTE | 2024-10-07 10:22 | Hospitalist Progress Note ---
Date of Service October 07, 2024 Assessment & Plan (1) Septic shock: (2) Lower extremity cellulitis: Plan: Kandy Shelby is a 73y/o F with PMHx significant for CAD, HTN, HLD, PAF, PSVT, nonrheumatic aortic valve stenosis, Raynaud's syndrome, history ESBL E. coli UTI, prior DVT with pulmonary emboli s/p IVC filter placement [on Eliquis], GERD with esophagitis, protein-calorie malnutrition, neurogenic bladder, multiple sclerosis [on chronic prednisone + Aubagio], polyneuropathy with chronic pain on Baclofen pump, tobacco use, anemia of chronic disease [baseline Hgb ~9-10], depression with anxiety, sicca syndrome, history of nonmelanoma skin cancer s/p Mohs operation, left breast cancer s/p radiation + surgery, rosacea [on doxycycline], right foot drop, bilateral lower extremity venous stasis, chronic osteomyelitis of the right fibula, chronic right lateral ankle wound and recurrent right lower extremity cellulitis who presented to the ED after a fall. Septic shock Cellulitis of legs- leg wound has been pictured Urinary tract infection--POA Possible adrenal insufficiency on chronic prednisone use Urine culture: preliminary culture growing Pseudomonas Blood cultures Negative Has been on IV vancomycin, cefepime Also on Caspofungin-Has been discontinued Was on Vasopressors -discontinued Lactic acid levels normalized with IV fluids Appreciate critical care input and recommendation Infectious disease consulted-Awaiting input and recommendation Will consider imaging of lower extremities to rule out osteo if no improvement clinically Plan to transfer out of ICU today Taper hydrocortisone over 3 days back to home prednisone AM cortisol level is normal Clinically much better and denies any significant symptoms She will have PT and OT evaluation and likely discharge tomorrow Remains on intravenous cefepime which can be changed to oral Cipro on discharge to finish a course of 7 days in total EKG did not show any QT prolongation and will start Cipro and repeat EKG tomorrow prior to discharge lower History of PE will hold her antipsychotic medications as long as she will be on Cipro surgeries. Will give a small dose of Ativan if needed for anxiety see intravenous cortisol will be done by tomorrow she said Remains stable without any anxiety and/or depression Ciprofloxacin was discontinued yesterday due to fear of having interaction with muscle relaxant and the pump She will finish her IV antibiotic this afternoon and following that she will be discharged home Hypertension Blood pressure is noted to very high at 188/105 Will give additional dose of Lopressor 25 mg p.o. x 1 Will also give 1 inch of NTP Blood pressure remains stable and on the upper side at 178/93 Her blood pressure is well-controlled Mild troponin elevation Likely demand ischemia secondary to above Denies any chest pain, dyspnea Fall Fall precautions Strongly advised to take precautions to avoid falls She refused to go to rehab She will continue to have home PT and OT as planned Strongly advised to take extreme precautions to avoid falls Subacute left glenoid fracture Incidental finding on CT CT showed: Subacute appearing left glenoid fracture with large focus of heterogeneous attenuation along the inferior margin of the glenohumeral joint likely representing a complex joint effusion. 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 Follows with Dr. Andrea Walker at [facility] On chronic prednisone therapy in addition to Aubagio. May need higher dose of prednisone from baseline based on cortisol levels Cortisol level has been normal and will not change the current dose of prednisone as an outpatient Anemia of Chronic Disease: Monitor CBC Chronic Back Pain: Patient with an indwelling intrathecal Baclofen pump in place [employer]. Follows with [facility] for pump checks previously. Other Chronic Medical Conditions: GERD Depression with anxiety Polyneuropathy Continue home medications as able DVT Px: Eliquis Code Status Full Code Discharge home this afternoon Admission and Anticipated Discharge Date Admission Date: October 01, 2024 Subjective 10/03/2024 The patient was seen and examined in ICU She has been feeling much better and complains to have nonhealing ulcer in the right ankle on the lateral side and worried about having osteomyelitis Denies any fever and chills, no chest pain, palpitation or shortness of breath Remain generally weak and lethargic 10/04/2024 The patient was seen and examined in telemetry unit She has been feeling much better and is out of bed on a chair Remains weak but condition is improved compared with yesterday She will have PT and OT evaluation and likely discharge tomorrow 10/05/2024 The patient was seen and examined in telemetry unit She has been feeling much better and has had physical therapy recommended rehab She does not want to go to rehab and wants to go home Her Zuñiga will be taken out and most likely she will be discharged home tomorrow on oral Cipro for the next 2 or 3 days she 10/06/2024 The patient was seen and examined in telemetry unit She has been feeling much better and feels that she can go home this afternoon She denies any significant symptoms 10/07/2024 Patient was seen and examined in medical telemetry unit She has been feeling much better today and has had a good sleep last night Denies any significant symptoms She will be discharged home this afternoon Review of Systems Review of Systems: All systems reviewed and are unremarkable except as noted below Physical Exam Physical Exam: Lying in bed without any acute distress Constitutional: well developed, well nourished and + ill appearing Eyes: PERRL, conjunctivae normal, anicteric sclerae ENMT: external ear and nose normal, oropharynx normal Neck: trachea midline, no thyromegaly Respiratory: no respiratory distress Auscultation: + diminished lung sounds and + crackles (Minimal crackles at the bases) Cardiovascular: Rate/Rhythm: regular rate and regular rhythm; not tachycardic Heart Sounds: normal S1, normal S2 and + murmur Extremities: + edema (1+ leg edema bilaterally) Gastrointestinal (Abdomen): Inspection/Auscultation: normal bowel sounds; abdomen not distended Percussion/Palpation: abdomen soft; abdomen nontender Musculoskeletal: No acute arthritis involving any of the joint Skin: Right leg and is as per the picture Neurologic: normal touch/pain/proprioception and moves all extremities; no focal motor deficits Lymphatic: no cervical or axillary lymphadenopathy Results & Data Results & Data Vital Signs (Past 12 Hours) Vital Signs Temp Pulse Pulse Resp BP Pulse Ox O2 Del Method 10/07/24 08:30 70 10/07/24 08:00 36.5 C 77 16 153/91 H 97 Room Air 10/07/24 03:35 36.3 C L 73 18 145/80 H 96 Room Air 10/07/24 00:00 75 10/06/24 23:30 36.4 C L 81 18 125/83 96 Room Air Medications Administered Current Inpatient Medications Apixaban (Apixaban 5 Mg Tablet) 5 mg PO BID [facility] Stop: 11/01/24 10:29 Last Admin: 10/07/24 08:15 Dose: 5 mg Atorvastatin Calcium (Atorvastatin 40 Mg Tab) 40 mg PO QAM [facility] Stop: 11/02/24 08:59 Last Admin: 10/07/24 08:15 Dose: 40 mg Duloxetine HCl (Duloxetine Hcl 30 Mg Cap) 30 mg PO DAILY [facility] Stop: 11/02/24 08:59 Last Admin: 10/07/24 08:15 Dose: 30 mg Escitalopram Oxalate (Escitalopram Oxalate 20 Mg Tab) 20 mg PO QAM [facility] Stop: 11/02/24 08:59 Last Admin: 10/07/24 08:15 Dose: 20 mg Heparin Sodium (Beef Lung) (Heparin 10 Unit/Ml 5 Ml Flush) 5 ml FLUSH PRN PRN PRN Reason: Flush Stop: 11/01/24 04:28 Cefepime HCl (Maxipime 2000mg) 2,000 mg in 20 mls @ 5 mls/min IV Q12H [facility]; Protocol Stop: 10/16/24 12:29 Last Admin: 10/07/24 00:23 Dose: 5 mls/min Melatonin (Melatonin 3 Mg Tab) 3 mg PO HS [facility] Stop: 11/01/24 20:59 Last Admin: 10/06/24 21:35 Dose: 3 mg Metoprolol Succinate (Metoprolol Succ 25mg Ext Rel Tab) 25 mg PO BID [facility] Stop: 11/03/24 20:59 Last Admin: 10/07/24 08:15 Dose: 25 mg Miscellaneous (Teriflunomide [Aubagio] 14 Mg Tablet- Order Awaiting Action) 1 each N/A QS [facility] Stop: 11/01/24 15:59 Last Admin: 10/07/24 08:13 Dose: Not Given Multivitamins (Multivitamin Tab) 1 tab PO DAILY [facility] Stop: 11/02/24 08:59 Last Admin: 10/07/24 08:15 Dose: 1 tab Oxybutynin Chloride (Oxybutynin Chloride Xl 5 Mg Tabcr) 15 mg PO QAM [facility] Stop: 11/02/24 08:59 Last Admin: 10/07/24 08:15 Dose: 15 mg Pantoprazole Sodium (Pantoprazole 40 Mg Tab) 40 mg PO QAM [facility] Stop: 11/01/24 10:29 Last Admin: 10/07/24 08:15 Dose: 40 mg Tizanidine HCl (Tizanidine Hcl 4 Mg Tablet) 4 mg PO Q6H PRN PRN Reason: Muscle Spasm Stop: 11/01/24 11:53 Vitamin D (Cholecalciferol 25 Mcg (1000 Units) Tab) 25 mcg PO [facility] Stop: 11/02/24 08:59 Last Admin: 10/07/24 08:15 Dose: 25 mcg
[2024-10-07 10:34] VITALS: PULSE 83
--- NOTE | 2024-10-08 08:40 | Discharge Summary ---
Date of Service October 08, 2024 Admission HPI Per Admitting Provider Kandy Shelby is a 73y/o F with PMHx significant for CAD, HTN, HLD, PAF, PSVT, nonrheumatic aortic valve stenosis, Raynaud's syndrome, history ESBL E. coli UTI, prior DVT with pulmonary emboli s/p IVC filter placement [on Eliquis], GERD with esophagitis, protein-calorie malnutrition, neurogenic bladder, multiple sclerosis [on chronic prednisone + Aubagio], polyneuropathy with chronic pain on Baclofen pump, tobacco use, anemia of chronic disease [baseline Hgb ~9-10], depression with anxiety, sicca syndrome, history of nonmelanoma skin cancer s/p Mohs operation, left breast cancer s/p radiation + surgery, rosacea [on doxycycline], right foot drop, bilateral lower extremity venous stasis, chronic osteomyelitis of the right fibula, chronic right lateral ankle wound and recurrent right lower extremity cellulitis who presented to the ED after a fall. Patient was discharged from [facility] recently last September 18, 2024 after being admitted for lower extremity cellulitis. ID was consulted and recommended a course of Cephalexin PO. As per patient, she finished the course of Cephalexin and was feeling fine. Yesterday, patient states she started to feel weak and dizzy. She stood up, felt dizzy and while walking, fell on the floor hitting the right side of her face. Denies chest pain, shortness of breath, nausea, abdominal pain, problems with urination or bowel movement. At the ER, patient was admitted with systolic BP in the 100s, HR 140s, Temp 38.2. Her blood pressure was noted to be decreasing while at the ER, down to systolic 70s. She was given total of 3 L NSS, Hydrocortisone IV and was started on Levophed via a femoral line. On exam, patient was awake, alert, oriented, answering questions appropriately. She denies lower extremity pain, headache, chest pain, shortness of breath, abdominal pain. Admission Exam Per Admitting Provider Physical Exam: General- oriented x 3, not in distress, speaks in sentences with no effort or accessory muscle use Head- atraumatic Eyes- (+) R periorbital hematoma, PERRL, EOMI, anicteric ENT- oropharynx clear (+) dry oral mucosa Neck- supple, no JVD, no adenopathy, no thyromegaly; carotids +2/2, no bruits appreciated Lungs- clear to auscultation bilaterally, no rales/wheezes Heart- normal rate, regular rhythm; no murmur, no gallop, no rub appreciated Abdomen- normal bowel sounds, nondistended, soft, nontender, no masses or hepatosplenomegaly Extremities- R lower leg: (+) significant erythema, warmth of distal half lower leg and the foot, no tenderness, (+) small, scabbed wound lateral heel area L lower leg: (+) mild erythema of distal half lower leg and the foot, no tenderness Neuro- alert, oriented x 3; CN 2-12 grossly intact; motor 5/5 bilaterally;sensation 100% on all extremities; no other gross focal neurologic deficits Skin- warm & dry Principal Diagnosis Sepsis secondary to complicated UTI due to Pseudomonas, Complicated by cellulitis of leg, multiple sclerosis Discharge Exam Lying in bed without any acute distress Constitutional well developed, well nourished and + ill appearing Eyes PERRL, conjunctivae normal, anicteric sclerae ENMT external ear and nose normal, oropharynx normal Neck trachea midline, no thyromegaly Respiratory no respiratory distress Auscultation: + diminished lung sounds and + crackles (Minimal crackles at the bases) Cardiovascular Rate/Rhythm: regular rate and regular rhythm; not tachycardic Heart Sounds: normal S1, normal S2 and + murmur Extremities: + edema (1+ leg edema bilaterally) Gastrointestinal (Abdomen) Inspection/Auscultation: normal bowel sounds; abdomen not distended Percussion/Palpation: abdomen soft; abdomen nontender Neurologic normal touch/pain/proprioception and moves all extremities; no focal motor deficits Lymphatic no cervical or axillary lymphadenopathy Discharge Data Allergies Allergy/AdvReac Type Severity Reaction Status Date / Time No Known Allergies Allergy Verified 08/28/24 12:57 Consultations 10/01/24 14:03 ED Decision to Admit Stat 10/01/24 14:52 Consult Senior Radiation Protection Technician Routine 10/02/24 09:38 Consult Infectious Diseases Routine Ordered Studies 10/01/24 10:49 CT abd pelvis IV con only Stat CT angio chest PE protocol Stat CT cervical spine wo con Stat CT facial bones wo con Stat CT head/brain wo con Stat Hospital Course (1) Septic shock: (2) Lower extremity cellulitis: Kandy Shelby is a 73y/o F with PMHx significant for CAD, HTN, HLD, PAF, PSVT, nonrheumatic aortic valve stenosis, Raynaud's syndrome, history ESBL E. coli UTI, prior DVT with pulmonary emboli s/p IVC filter placement [on Eliquis], GERD with esophagitis, protein-calorie malnutrition, neurogenic bladder, multiple sclerosis [on chronic prednisone + Aubagio], polyneuropathy with chronic pain on Baclofen pump, tobacco use, anemia of chronic disease [baseline Hgb ~9-10], depression with anxiety, sicca syndrome, history of nonmelanoma skin cancer s/p Mohs operation, left breast cancer s/p radiation + surgery, rosacea [on doxycycline], right foot drop, bilateral lower extremity venous stasis, chronic osteomyelitis of the right fibula, chronic right lateral ankle wound and recurrent right lower extremity cellulitis who presented to the ED after a fall. Septic shock Cellulitis of legs- leg wound has been pictured Urinary tract infection--POA Possible adrenal insufficiency on chronic prednisone use Urine culture: preliminary culture growing Pseudomonas Blood cultures Negative Has been on IV vancomycin, cefepime Also on Caspofungin-Has been discontinued Was on Vasopressors -discontinued Lactic acid levels normalized with IV fluids Appreciate critical care input and recommendation Infectious disease consulted-Awaiting input and recommendation Will consider imaging of lower extremities to rule out osteo if no improvement clinically Plan to transfer out of ICU today Taper hydrocortisone over 3 days back to home prednisone AM cortisol level is normal Clinically much better and denies any significant symptoms She will have PT and OT evaluation and likely discharge tomorrow Remains on intravenous cefepime which can be changed to oral Cipro on discharge to finish a course of 7 days in total EKG did not show any QT prolongation and will start Cipro and repeat EKG tomorrow prior to discharge lower History of PE will hold her antipsychotic medications as long as she will be on Cipro surgeries. Will give a small dose of Ativan if needed for anxiety see intravenous cortisol will be done by tomorrow she said Remains stable without any anxiety and/or depression Ciprofloxacin was discontinued yesterday due to fear of having interaction with muscle relaxant and the pump She will finish her IV antibiotic this afternoon and following that she will be discharged home Hypertension Blood pressure is noted to very high at 188/105 Will give additional dose of Lopressor 25 mg p.o. x 1 Will also give 1 inch of NTP Blood pressure remains stable and on the upper side at 178/93 Her blood pressure is well-controlled Mild troponin elevation Likely demand ischemia secondary to above Denies any chest pain, dyspnea Fall Fall precautions Strongly advised to take precautions to avoid falls She refused to go to rehab She will continue to have home PT and OT as planned Strongly advised to take extreme precautions to avoid falls Subacute left glenoid fracture Incidental finding on CT CT showed: Subacute appearing left glenoid fracture with large focus of heterogeneous attenuation along the inferior margin of the glenohumeral joint likely representing a complex joint effusion. 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 Follows with Dr. Andrea Walker at [facility] On chronic prednisone therapy in addition to Aubagio. 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 Follows with [facility] for pump checks previously. Other Chronic Medical Conditions: GERD Depression with anxiety Polyneuropathy Continue home medications as able DVT Px: Eliquis Code Status Full Code Discharge home this afternoon Total Time Total Time Spent Total Time Spent (In Minutes): 35 minutes Discharge Plan Discharge Items Patient Disposition: Home - Home Health Services Reason For Visit: SEPTIC SHOCK Discharge Diagnosis: Sepsis secondary to complicated UTI due to Pseudomonas, Complicated by cellulitis of leg, multiple sclerosis Condition on Discharge: Fair Activity: Resume your previous activity Activity Comment: Continue outpatient PT and OT Non-emergency contact: Primary Care Provider Call non-emergency contact if: you have any medication questions and your symptoms worsen Follow-up/Referrals: Simi Hernandez CRNP [Primary Care Provider] - (Date & Time 10/11/2024 10:40 AM Provider Shane Hsieh MD Department [facility] ) Diet: Heart Healthy Addtl Attending Provider Instructions: Please take precautions to avoid falls No change with your current medications Take your medications as advised Please keep appointments with your healthcare provider Right foot wound care as advised by the wound care nurse Pending Studies at Discharge: No Stand-Alone Forms: [facility], Smoking Cessation Medications and DC Order Prescriptions: Continued prednisone 10 mg tablet 10 mg PO QAM oxybutynin chloride 15 mg tablet extended release 24hr 15 mg PO QAM cholecalciferol (vitamin D3) 1,000 unit capsule 2,000 units PO QAM escitalopram oxalate [Lexapro] 20 mg tablet 20 mg PO QAM teriflunomide [Aubagio] 14 mg tablet 14 mg PO QPM doxycycline hyclate 50 mg capsule 50 mg PO Q2D Hold Instructions: Please hold off on taking this medication until you complete the full course of Keflex for treatment of your cellulitis! You can resume taking this medication once you finish the full 4-day course of Keflex therapy. multivitamin Tablet 1 tab PO DAILY melatonin 3 mg Tablet 3 mg PO HS omeprazole 40 mg capsule,delayed release(DR/EC) 40 mg PO QAM Baclofen Pump 0 mg SC DIRECTED Rx Instructions: continuous. FAMILY UNSURE OF MAX DOSE BUT IT IS A CONTINOUS PUMP. Eliquis 5 mg tablet 5 mg PO BID atorvastatin 40 mg tablet 40 mg PO QAM duloxetine 30 mg capsule,delayed release(DR/EC) 30 mg PO DAILY tizanidine [Zanaflex] 4 mg tablet 4 mg PO Q6H PRN (Reason: Muscle Spasm) metoprolol succinate 25 mg tablet extended release 24 hr 25 mg PO BID Discharge Orders: Discharge Order (Routine); Ordered 10/07/24 Ordered By: Genesis Guerra Admission Data Admit Date/Time: 10/01/24 14:01 Attending Provider: Genesis Guerra Admit Provider: Danis Hale Primary Care Provider: Simi Hernandez Other Providers: Fernando Armenta; [facility]; Danis Hale; Neha Sneed; Erasmo Moore; Isma Jacob; Dmitri Morales I.; Fran Pérez II; Abi Celestin; Morales Childs; José Miguel Noble; Harriet Sierra Other Interventions: Discharge Summary Assessment (RN) Last Done: 10/07/24 10:33
--- NOTE | 2024-10-08 15:28 | Electrocardiogram Report ---
Test Reason : Blood Pressure : */* mmHG Vent. Rate : 82 BPM Atrial Rate : 82 BPM P-R Int : 164 ms QRS Dur : 70 ms QT Int : 372 ms P-R-T Axes : 61 19 62 degrees QTcB Int : 434 ms Normal sinus rhythm Septal infarct (cited on or before 10-Feb-2024) Abnormal ECG When compared with ECG of 05-Oct-2024 08:44, No significant change was found Confirmed by Claus Love ([id number]) on 10/08/2024 3:28:41 PM Referred By: REFERRED SELF Confirmed By: Claus Love
== END 2024-10-07 12:45 | disposition home health service (06) | DRG 871 ==
LOC: ED 10:34 → SUATTDRO 14:01 → 1E 14:01 → 2S 10-03 19:54 → 2N 10-06 16:11

== ENCOUNTER 2024-10-14 14:26 | Inpatient (IN) ==
--- OUTSIDE RECORDS SUMMARY | 2024-10-14 14:33 | External Medical Summary | Summary of Care ---
Author Name Unknown Organization [facility] Address [address] [place] [address] Phone [phone] Care Team Providers Care Health Director Name Role Phone David Simi BROWN Primary Care Provider Encounter Details Date Type Department Care Team (Late st Contact Info) Description 09/11/2024 Result Scan Unspecified Department <No scans attached> Allergies No known active allergiesdocumented as of this encounter (statuses as of 10/02/2024) Medications Medication Sig Dispensed Refills Start Date [...] by mouth in the morning. 01/04/2023 Active LUCITA Knee Brace Medium Please eval [...] Additional Information Patient not taking.Reported on 09/19/2024 documented as of this encounter (statuses as of 10/02/2024) Active Problems Problem Noted Date Diagnosed Date [...] Debility 11/05/2022 Coronary artery disease invo lving [place] coronary artery of [place] heart without angina pectoris 11/05/2022 Medical home [...] as of this encounter (statuses as of 10/02/2024) Resolved Problems Problem Noted Date Diagnosed Date [...] as of this encounter (statuses as of 10/02/2024) Immunizations Name Administration Dates Next Due COVID-19 [...] Care Team (Late st Contact Info) Description 10/11/2024 2:05 PM EST NeuroDiagnostic Study Neurophysiology [facility] [address] [facility] [place] [address] Silver Mcduffie, DO [address] [place] [address] 10/23/2024 3:00 PM EST Office Visit [facility] [address] [place] [address] Simi Hernandez CRNP [address] [place] [address] 10/24/2024 2:00 PM EST Cardiac Studies Cardiac Studies, [facility] [address] [facility] [place] [address] 10/24/2024 3:00 PM EST Office Visit Cardiology, [facility] [address] [facility] [place] [address] Camille Cuevas PA-C [address] [place] [address] 10/26/2024 11:00 AM EST Office Visit Dermatology, [place] [facility] [address] [place] [address] [place] [address] Kymberly Duque PA-C [address] [place] [address] 11/23/2024 3:00 PM EST Office Visit [facility] [address] [facility] [place] [address] Simi Hernandez CRNP [address] [place] [address] 01/02/2025 9:15 AM EST Office Visit MOHS Surgery [facility] [address] [place] [address] Hannah Nicolas MD [address] [place] [address] 02/04/2025 11:20 AM EDT Office Visit Neurology [facility] [address] [place] [address] [facility] [address] [facility] [address] 02/13/2025 1:30 PM EDT Office Visit Urology [place] [facility] [address] [place] [address] Elba Morales PA-C [address] [place] [address] 05/16/2025 8:00 AM EDT Office Visit [address] [address] Edu Chaudhary, DO [address] [place], [place] [id number] Scheduled Procedures Name Priority Associated Diagnoses Date/Ti [...] D LEVEL ONCE IN A LIFETIME-USE SMARTSET# [id number] Completed 01/17/2023, 04/05/2022, 04/28/2021, Additional history exists [...] Procedure Name Priority Date/Time Associated Diagnosis Comments OUTSIDE LAB RESULTS 09/11/2024 documented in this encounter Results * OUTSIDE LAB RESULTS (09/11/2024) 09/11/2024 No Physician Data Unknown LABORATORY documented in this encounter Advance Directives * [...] and were consensually agreed upon. Care Teams Health Director Relationship Specialty Start Date End Date Simi Hernandez CRNP [address] [place] [address] PCP - General Nurse Practitioner 10/05/22 documented as of this encounter
--- OUTSIDE RECORDS SUMMARY | 2024-10-14 14:33 | External Medical Summary | Summary of Care ---
Author Name Unknown Organization [facility] Address [address] [place] [address] Phone [phone] Care Team Providers Care Plastic Cutter Name Role Phone Simi Hernandez Primary Care Provider Reason for Visit * Reason Comments eRx-Medication Refill Encounter Details Date Type Department Care Team (Late st Contact Info) Description 10/06/2024 Refill Family Practice [facility] [address] [facility] [place] [address] Simi Hernandez CRNP [address] [facility] [place] [address] Allergies No known active allergiesdocumented as of this encounter (statuses as of 10/08/2024) Medications VITAMIN D 1000 UNITS PO CAPSIndications:O steoporosis One capsule daily 30 Cap 5 013 Active Aubagio 14 MG Oral Tablet Take 1 Tablet by mouth in the morning. Takes at night. Active Melatonin 3 MG Oral Tablet Disintegrating Take 3 mg by mouth every night at bedtime. 30 Tablet Active Multivitamin Adult Oral Tablet Take by mouth 1 Tablet daily . 30 Tablet 022 Active Aspirin EC 81 MG Oral Tablet Delayed Release Take 1 Tablet by mouth in the morning. 023 Active LUCITA Knee Brace Medium Please eval and fit for bilateral knee brace as recommended by physical therapy. 2 Each O 023 Active Omeprazole 40 MG Oral Capsule Delayed Release (PriLOSEC) Take 1 capsule by mouth in the morning 30 Capsule 5 024 Active Magnesium Oxide 400 240 MG Oral Packet (Magnesium Oxide) Take 400 mg by mouth in the morning and 400 mg before bedtime. 180 Each 3 024 Active Transdermal Pain Base External Cream Apply to feet daily as needed. 500 g 2 Active Metoprolol Succinate ER 25 MG Oral Tablet Extended Release 24 Hour (toPROL XL) Take 1 Tablet by mouth in the morning and 1 Tablet before bedtime. 60 Tablet 11 024 Active Losartan Potassium 25 MG Oral Tablet (Cozaar) Take 1 Tablet by mouth in the morning. 024 Active predniSONE 10 MG Oral Tablet (Deltasone)Indica tions:Multiple sclerosis (HCC) Take 1 tablet by mouth once daily 90 Tablet 1 024 Active Atorvastatin Calcium 40 MG Oral Tablet (Lipitor) Take 1 Tablet by mouth in the morning. 90 Tablet 3 024 Active oxyBUTYnin Chloride ER 15 MG Oral Tablet Extended Release 24 Hour (Ditropan XL)Indications:Ne urogenic bladder TAKE 1 TABLET BY MOUTH IN THE MORNING 90 Tablet 024 Active DULoxetine HCl 30 MG Oral Capsule Delayed Release Particles (Cymbalta) Take 1 Capsule by mouth in the morning. Do not cut, crush or chew. 30 Capsule 5 024 Active tiZANidine HCl 4 MG Oral Tablet (Zanaflex) Take 1 Tablet by mouth every 6 hours as needed for Muscle spasms. 360 Tablet Active Doxycycline Hyclate 50 MG Oral Capsule (Vibramycin)Indic ations:Rosacea TAKE 1 CAPSULE BY MOUTH EVERY OTHER DAY 45 Capsule 024 Active Additional Information Patient not taking.Reported on 09/19/2024 Cephalexin 500 MG Oral Capsule (Keflex) Take 1 Capsule by mouth in the morning and 1 Capsule at noon and 1 Capsule in the evening and 1 Capsule before bedtime. Started 09/19/24, for 4 days. Active Azelaic Acid 15 % External Gel (Finacea)Indicati ons:Rosacea Apply to face twice daily as needed 50 g 1 Active Eliquis 5 MG Oral Tablet Take 1 tablet by mouth twice daily 180 Tablet 1 Active Eliquis 5 MG Oral Tablet Take 1 tablet by mouth twice daily 60 Tablet 5 024 2023 Discontinued documented as of this encounter (statuses as of 10/08/2024) Active Problems Problem Noted Date Diagnosed Date [...] Debility 11/05/2022 Coronary artery disease invo lving [place] coronary artery of [place] heart without angina pectoris 11/05/2022 Medical home patient encounter 09/30/2022 S/P shoulder replacement, right 09/07/2022 ESBL E. coli carrier 09/07/2022 Presence of intrathecal baclofen pump 09/07/2022 History of KS (myocardial infarction) 05/12/2022 Mass of chest wall, right 12/23/2021 SVT (supraventricular tachycardia) 10/22/2020 Hiatal hernia 05/07/2020 Gastroesophageal reflux disease with esophagitis 05/05/2020 H/O: upper GI bleed 05/05/2020 Hx of nonmelanoma skin cancer 09/21/2018 Overview (07/02/2023): BCC L upper back x 2 03/2023, [...] as of this encounter (statuses as of 10/08/2024) Resolved Problems Problem Noted Date Diagnosed Date [...] 05/01/2008 03/31/2017 ADVANCE DIRECTIVE INFORMATION 04/08/2008 05/05/2020 Overview (04/08/2008): No, Advance Directive brochure given to patient at prior appointment. Urinary tract infection 03/21/200806/2017 Urinary incontinence 03/21/2008 018 Overview (08/29/2017): ICD-10 update of inactive term Overflow incontinence 03/21/20082016 Osteoporosis 07/26/2007 05/05/2020 Breast neoplasm 09/10/2004 12/19/2018 Overview (08/29/2017): ICD-10 update of inactive term Incomplete bladder emptying 06/25/2003 08/13/2019 intradermal nevus, left naso labial fold-1.13.03 01/10/2003 12/28/2016 Lump or mass in breast 10/03/200009/10 documented as of this encounter (statuses as of 10/08/2024) Immunizations Name Administration Dates Next Due COVID-19 [...] 08/30/2024 Does the household have a [facility] source of income? (Household - for ages [...] ages 0-17 years) Not on file 08/30/2024 Comments No Sex and Gender Information Value Date Recorded Sex Assigned at Female 02/07/2020 1:52 PM EDT Legal Sex Female 5:24 AM EST Gender Identity Female 02/07/2020 1:52 PM EDT Sexual Orientation Straight 02/07/2020 1: 52 PM EDT documented as of this encounter Miscellaneous Notes * Telephone Encounter - [facility] - 10/08/2024 11:14 AM ESTSigned Prescriptions: Disp Refills Eliquis 5 MG Oral Tablet 180 Ta*1 Sig: Take 1 tablet by mouth twice dailyAuthorizing Provider: SIMI HERNANDEZ User: ELMER RAY documented in this encounter Plan of Treatment Upcoming Encounters Date Type Department Care Team (Late st Contact Info) Description 10/11/2024 10:40 AM EST Office Visit [facility] [address] [facility] [place] [address] Shane Hseih MD [address] [place] [address] 10/11/2024 2:05 PM EST NeuroDiagnostic Study Neurophysiology [facility] [address] [facility] [place] [address] Silver Mcduffie, DO [address] [place] [address] 10/23/2024 3:00 PM EST Office Visit [facility] [address] [facility] [place] [address] Simi Hernandez CRNP [address] [facility] [place] [address] 10/24/2024 2:00 PM EST Cardiac Studies Cardiac Studies, [facility] [address] [facility] [place] [address] 10/24/2024 3:00 PM EST Office Visit Cardiology, [facility] [address] [facility] [place] [address] Camille Cueavs PA-C [address] [facility] [place] [address] 10/26/2024 11:00 AM EST Office Visit Dermatology, [place] [facility] [address] [place] [address] Kymberly Duque, PABrianna [address] [place] [address] 11/23/2024 3:00 PM EST Office Visit [facility] [address] [place] [address] Simi Hernandez CRNP [address] [place] [address] 01/02/2025 9:15 AM EST Office Visit [facility] Surgery [facility] [address] [place] [address] Hannah Nicolas MD [address] [place] [address] 02/04/2025 11:20 AM EDT Office Visit Neurology [facility] [address] [place] [address] Andrea Walker MD [address] [place] [address] 02/13/2025 1:30 PM EDT Office Visit Urology [place] [facility] [address] [place] [address] Elba Morales PA-C [address] [place] [address] 05/16/2025 8:00 AM EDT Office Visit [facility] [address] [place] [address] Edu Chaudhary, DO [address] [place], [place] [id number] Scheduled Procedures Name Priority Associated Diagnoses Date/Ti [...] Depression Monitoring 08/30/2025 08/30/2024 Colonoscopy 05/05/2028 05/05/2023, 06/2023, 11/04/2022, Additional history exists Colorectal Cancer Screening 05/05/2028 COVID-19 Vaccine Discontinued 06/04/2022, 06/2022, 04/18/2022, Additional history exists VITAMIN D LEVEL ONCE IN A LIFETIME-USE SMARTSET# [id number] Completed 01/17/2023, 04/05/2022, 04/28/2021, Additional history exists [...] and were consensually agreed upon. Care Teams Plastic Cutter Relationship Specialty Start Date End Date Simi Hernandez CRNP [address] [place] [address] PCP - General Nurse Practitioner 10/05/22 documented as of this encounter
--- OUTSIDE RECORDS SUMMARY | 2024-10-14 14:33 | External Medical Summary | Summary of Care ---
Author Name Unknown Organization [facility] Address [address] [place] [address] Phone [phone] Care Team Providers Care Deputy Register Of Deeds Name Role Phone Simi Hernandez Tami BROWN Primary Care Provider Encounter Details Date Type Department Care Team (Late st Contact Info) Description 09/27/2024 Refill Dermatology [facility] [address] [place] [address] Lisa Jeorme PA-C 200 [facility] [place] [address] Rosacea Allergies No known active allergiesdocumented as of this encounter (statuses as of 10/01/2024) Medications Medication Sig Dispensed Refills Start Date [...] twice daily as needed 50 g 1 10/01/2024 Active Azelaic Acid 15 % External Gel (Finacea)Indication s:Rosacea Apply to face twice daily as needed 50 g 1 03/08/2023 4 Discontinu ed(Refill) documented as of this encounter (statuses as of 10/01/2024) Active Problems Problem Noted Date Diagnosed Date [...] Debility 11/05/2022 Coronary artery disease invo lving [place] coronary artery of [place] heart without angina pectoris 11/05/2022 Medical [...] as of this encounter (statuses as of 10/01/2024) Resolved Problems Problem Noted Date Diagnosed Date [...] as of this encounter (statuses as of 10/01/2024) Immunizations Name Administration Dates Next Due COVID-19 mRNA, LNP-s, No Pre serve, 2-Dose Series (Slingr) 04/18/2022,11/12/2021,01/28/2021,01/14 PPD 06/05/2018 Pneumococcal Conjugate Vacc, 13 [...] encounter Miscellaneous Notes * Telephone Encounter - Lisa Jerome PA-C - 10/01/2024 1:29 PM EST Signed Prescriptions: Disp Refills Azelaic Acid 15 % External Gel (Finacea) 50 g 1 Sig: Apply to face twice daily as neededAuthorizing Provider: LISA JEROME documented in this encounter Plan of Treatment Upcoming Encounters Date Type Department Care Team (Late st Contact Info) Description 10/09/2024 10:00 AM EST Office Visit [facility] Surgery [address] [address] Hannah Nicolas MD [address] [place], [place] [address] 10/11/2024 2:05 PM EST NeuroDiagnostic Study Neurophysiology [facility] [place] [address] Silver Mcduffie DO [address] [place], [place] [address] 10/23/2024 3:00 PM EST Office Visit [facility] 132 [facility] [place] [address] Simi Hernandez CRNP 132 [facility] [place] [address] 10/24/2024 2:00 PM EST Cardiac Studies [facility], [facility] [place] [place] [address] 10/24/2024 3:00 PM EST Office Visit Cardiology, [facility] 132 [facility] [place], [place] [address] Camille Cuevas PA-C 132 [facility] [place] [address] 10/26/2024 11:00 AM EST Office Visit Dermatology, [place]irstie Avina [address] [facility] [address] [place] [address] Kymberly Duque PA-C [address] [place] [address] 11/23/2024 3:00 PM EST Office Visit [facility] 132 [facility] [place] [address] Simi Hernandez CRNP [facility] [place] [address] 02/04/2025 11:20 AM EDT Office Visit Neurology Chris Cartwright [place] 200 [facility] [place], [place] [address] Andrea Walker MD [address] [place], [place] [address] 02/13/2025 1:30 PM EDT Office Visit Urology [place] Avina [address] [place] [address] [place] [address] Elba Morales PA-C [address] [place] [address] 05/16/2025 8:00 AM EDT Office Visit [address] [address] Edu Chaudhary, DO [address] [place], [place] [id number] Scheduled Procedures Name Priority Associated Diagnoses Date/Ti [...] D LEVEL ONCE IN A LIFETIME-USE SMARTSET# [id number] Completed 01/17/2023, 04/05/2022, 04/28/2021, Additional history exists [...] as of this encounter Visit Diagnoses Diagnosis Rosacea documented in this encounter Advance Directives * [...] and were consensually agreed upon. Care Teams Deputy Register Of Deeds Relationship Specialty Start Date End Date Simi Hernandez CRNP 132 [place] [address] PCP - General Nurse Practitioner 10/05/22 documented as of this encounter
--- OUTSIDE RECORDS SUMMARY | 2024-10-14 14:33 | External Medical Summary | Summary of Care ---
Author Name Unknown Organization [facility] Address [address] [place] [address] Phone [phone] Care Team Providers Care Wire Winding Machine Operator Name Role Phone Simi Hernandez Primary Care Provider Reason for Referral * Evaluate & Treat - Unlimited Visits (Within 3 days (urgent)) - Authorized Specialty Diagnoses / Procedures Referred By Kenya soliz Referred To Contact Physical Therapy / Physical Medicine And Rehab Diagnoses Multiple sclerosis (HCC) Debility Simi Hernandez CRNP [address] [place] [address] Phone: tel: fax: Referral ID Status Reason Start Date Expiration Date Visits Requested Visits Authorized [id number] Authorized Specialty Services Required 4 [phone] Question Answer Referral Priority Within 3 days (urgent) Where should this appointment be scheduled? [facility] Reason for Visit * Reason Onset Date Comments Referral 10/08/2024 Updated referral for PT Encounter Details Date Type Department Care Team (Late st Contact Info) Description 10/08/2024 Telephone Family Practice [facility] [address] [place] [address] Simi Hernandez CRNP [address] [place] [address] Referral (Updated referral for PT) Allergies No known active allergiesdocumented as of this encounter (statuses as of 10/10/2024) Medications VITAMIN D 1000 UNITS PO CAPSIndications:Os teoporosis One capsule daily 30 Cap 5 03/21/20 13 Active Aubagio 14 MG Oral Tablet Take 1 Tablet by mouth in the morning. Takes at night. Active Melatonin 3 MG Oral Tablet Disintegrating Take 3 mg by mouth every night at bedtime. 30 Tablet 09/07/20 22 Active Multivitamin Adult Oral Tablet Take by mouth 1 Tablet daily . 30 Tablet 09/07/20 22 Active Aspirin EC 81 MG Oral Tablet Delayed Release Take 1 Tablet by mouth in the morning. 01/04/20 23 Active LUCITA Knee Brace Medium Please eval and fit for bilateral knee brace as recommended by physical therapy. 2 Each O 07/27/20 23 Active Omeprazole 40 MG Oral Capsule Delayed Release (PriLOSEC) Take 1 capsule by mouth in the morning 30 Capsule 5 02/23/20 24 Active Magnesium Oxide 400 240 MG Oral Packet (Magnesium Oxide) Take 400 mg by mouth in the morning and 400 mg before bedtime. 180 Each 3 03/22/20 24 Active Transdermal Pain Base External Cream Apply to feet daily as needed. 500 g 2 03/22/20 24 Active Metoprolol Succinate ER 25 MG Oral Tablet Extended Release 24 Hour (toPROL XL) Take 1 Tablet by mouth in the morning and 1 Tablet before bedtime. 60 Tablet 11 05/21/20 24 Active Losartan Potassium 25 MG Oral Tablet (Cozaar) Take 1 Tablet by mouth in the morning. 02/14/20 24 Active predniSONE 10 MG Oral Tablet (Deltasone)Indicat ions:Multiple sclerosis (HCC) Take 1 tablet by mouth once daily 90 Tablet 1 06/08/20 24 Active Atorvastatin Calcium 40 MG Oral Tablet (Lipitor) Take 1 Tablet by mouth in the morning. 90 Tablet 3 06/28/20 24 Active oxyBUTYnin Chloride ER 15 MG Oral Tablet Extended Release 24 Hour (Ditropan XL)Indications:Jameel rogenic bladder TAKE 1 TABLET BY MOUTH IN THE MORNING 90 Tablet 07/05/20 24 Active DULoxetine HCl 30 MG Oral Capsule Delayed Release Particles (Cymbalta) Take 1 Capsule by mouth in the morning. Do not cut, crush or chew. 30 Capsule 5 07/27/20 24 Active tiZANidine HCl 4 MG Oral Tablet (Zanaflex) Take 1 Tablet by mouth every 6 hours as needed for Muscle spasms. 360 Tablet 07/31/20 Active Doxycycline Hyclate 50 MG Oral Capsule (Vibramycin)Indica tions:Rosacea TAKE 1 CAPSULE BY MOUTH EVERY OTHER DAY 45 Capsule 07/31/20 Active Additional Information Patient not taking.Reported on 09/19/2024 Cephalexin 500 MG Oral Capsule (Keflex) Take 1 Capsule by mouth in the morning and 1 Capsule at noon and 1 Capsule in the evening and 1 Capsule before bedtime. Started 09/19/24, for 4 days. Active Azelaic Acid 15 % External Gel (Finacea)Indicatio ns:Rosacea Apply to face twice daily as needed 50 g 1 10/01/20 Active Eliquis 5 MG Oral Tablet Take 1 tablet by mouth twice daily 180 Tablet 1 10/08/20 Active documented as of this encounter (statuses as of 10/10/2024) Active Problems Problem Noted Date Diagnosed Date [...] Debility 11/05/2022 Coronary artery disease invo lving [place] coronary artery of [place] heart without angina pectoris 11/05/2022 Medical home patient encounter 09/30/2022 S/P shoulder replacement, right 09/07/2022 ESBL E. coli carrier 09/07/2022 Presence of intrathecal baclofen pump 09/07/2022 History of [place] (myocardial infarction) 05/12/2022 Mass of chest wall, [...] as of this encounter (statuses as of 10/10/2024) Resolved Problems Problem Noted Date Diagnosed Date [...] as of this encounter (statuses as of 10/10/2024) Immunizations Name Administration Dates Next Due COVID-19 [...] No 08/30/2024 Does the household have a gular source of income? (Household - for [...] Telephone Encounter - Mana Zurita OSA - 10/10/2024 2:40 PM EST PT has been texted to number provided * Telephone Encounter - Simi Hernandez CRNP - 10/08/2024 1:38 PM EST Please fax to appropriate location ADELSO [place], KEVIN [facility] * Telephone Encounter - Mag Pierre CCMA - 10/08/2024 1:15 PM EST Please read and advise. Thank You * Telephone Encounter - Jessica Church OSA - 10/08/2024 12:23 PM EST Has the patient been seen for [...] referral need to be placed into the [facility] system? Name of preferred specialist: [facility] Type of specialist: PT Location of specialist: [address] Specialist's Phone #: [phone] Specialist's Fax #: [phone] Reason for visit: Pt was in hospital needs updated referral to continue pt Date of visit: 10/11 documented in this encounter Plan of Treatment Upcoming Encounters Date Type Department Care Team (Late st Contact Info) Description 10/11/2024 10:40 AM EST Office Visit Family [facility] 132 [facility] [place] [address] Shane Hsieh MD [address] [place] [address] 10/11/2024 2:05 PM EST NeuroDiagnostic Study Neurophysiology [facility] 132 [facility] [place] [address] Silver Mcduffie, DO [address] [facility], [place] [address] 10/23/2024 3:00 PM EST Office Visit [facility] 132 [facility] [place] [address] Simi Hernandez CRNP 132 [facility] [place] [address] 10/24/2024 2:00 PM EST Cardiac Studies Cardiac Studies, [facility] 132 [facility] [place] [address] 10/24/2024 3:00 PM EST Office Visit Cardiology, [facility] 132 [facility] [place] [address] Camille Cuevas PA-C 132 [facility] [place] [address] 10/26/2024 11:00 AM EST Office Visit Dermatology, [place] Avina [address] [place] [address] [place] [address] Kymberly Duque PA-C [address] [place] [address] 11/23/2024 3:00 PM EST Office Visit [facility] 132 [facility] [place] [address] Simi Hernandez CRNP 132 [facility] [place] [address] 01/02/2025 9:15 AM EST Office Visit [facility] [place] [address] Hannah Nicolas MD 200 [place] [address] 02/04/2025 11:20 AM EDT Office Visit Neurology [facility] 200 [facility] [place] [address] Andrea Walker MD 200 [facility] [place] [address] 02/13/2025 1:30 PM EDT Office Visit Urology [place]ie Avina [address] [place] [address] [place] [address] Elba Morales PA-C [address] [place] [address] 05/16/2025 8:00 AM EDT Office Visit [address] [address] Edu Chaudhary, DO [address] [place] [address] Scheduled Procedures Name Priority Associated Diagnoses Date/Ti me COLONOSCOPY FLEXIBLE PROXIMAL DIAGNOSTIC Recall Screen for colon cancer Scheduled Referrals Name Type Priority Associated Diagnoses Orde r Schedule PHYSICAL THERAPY REFERRAL OP Referral Within 3 days (urgent) Multiple sclerosis (HCC) Debility Ordered: 10/08/2024 Health Maintenance Due Date Last Done Comments [...] D LEVEL ONCE IN A LIFETIME-USE SMARTSET# [id number] Completed 01/17/2023, 04/05/2022, 04/28/2021, Additional history exists [...] Diagnosis Multiple sclerosis (HCC)- Primary Multiple sclerosis Debility Debility, unspecified documented in this encounter Advance Directives * [...] and were consensually agreed upon. Care Teams Wire Winding Machine Operator Relationship Specialty Start Date End Date Simi Hernandez CRNP [address] [place] [address] PCP - General Nurse Practitioner 10/05/22 documented as of this encounter
--- OUTSIDE RECORDS SUMMARY | 2024-10-14 14:33 | External Medical Summary | Summary of Care ---
Author Name Unknown Organization [facility] Address [address] [place] [address] Phone [phone] Care Team Providers Care Operational Risk Manager Name Role Phone Simi Hernandez Tami BROWN Primary Care Provider Encounter Details Date Type Department Care Team (Late st Contact Info) Description 10/03/2024 11:30 AM EST Scheduled Telephone Care Coordination and Integration [address] [place] [address] José Miguel Cao [facility] Color Room Attendant [address] [place] [address] Allergies No known active allergiesdocumented as of this encounter (statuses as of 10/03/2024) Medications Medication Sig Dispensed Refills Start Date [...] as needed 50 g 1 10/01/2024 Active documented as of this encounter (statuses as of 10/03/2024) Active Problems Problem Noted Date Diagnosed Date [...] Debility 11/05/2022 Coronary artery disease invo 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 (Household - for [...] as of this encounter Progress Notes * José Miguel Cao [facility] Attendant - 10/03/2024 12:50 PM EST Telemedicine visit: No [facility] Color Room Attendant (RANDEE) documentation: CHW follow up phone call for RNCM and reached the patient's voicemail. CHW left a brief message with my contact information, as well as the RNCM's contact information. Francois Cao Community Health Worker Lead [facility] [place] [phone] documented in this encounter Plan of Treatment Upcoming Encounters Date Type Department Care Team (Late st Contact Info) Description 10/11/2024 2:05 PM EST NeuroDiagnostic Study Neurophysiology [facility] [place] [address] [place] [address] Silver Mcduffie DO [address] [place] [address] 10/23/2024 3:00 PM EST Office Visit Family Practice [facility] [place] [address] [place] [address] Simi Hernandez CRNP [address] [place] [address] 10/24/2024 2:00 PM EST Cardiac Studies Cardiac Studies, [facility] [address] [place] [address] 10/24/2024 3:00 PM EST Office Visit Cardiology, [facility] 132 [facility] [place], [place] [address] Camille Cuevas, PAJoaquinaC [facility] [place] [address] 10/26/2024 11:00 AM EST Office Visit Dermatology, [place] [address] [place] 140 [place] [address] Kymberly Duque PAJoaquinaC [address] [place] [address] 11/23/2024 3:00 PM EST Office Visit Family Practice [facility] [place] [address] Simi Hernandez CRNP [address] [place] [address] 01/02/2025 9:15 AM EST Office Visit [facility] Surgery [facility] Gabbie [place] [address] [place] [address] Hannah Nicolsa MD 200 [facility] [place] [address] 02/04/2025 11:20 AM EDT Office Visit Neurology [facility] [place] 200 [facility] [place] [address] Andrea Walker MD 200 [facility] [place] [address] 02/13/2025 1:30 PM EDT Office Visit Urology Kirstie Avina [address] [place] [address] [place] [address] Elba Morales PA-C [address] [place] [address] 05/16/2025 8:00 AM EDT Office Visit [address] [address] Edu Chaudhary, DO [address] [place] [address] Scheduled Procedures Name Priority Associated Diagnoses Date/Ti [...] D LEVEL ONCE IN A LIFETIME-USE SMARTSET# [id number] Completed 01/17/2023, 04/05/2022, 04/28/2021, Additional history exists [...] and were consensually agreed upon. Care Teams Operational Risk Manager Relationship Specialty Start Date End Date Simi Hernandez CRNP 132 [place] [address] PCP - General Nurse Practitioner 10/05/22 documented as of this encounter
--- OUTSIDE RECORDS SUMMARY | 2024-10-14 14:33 | External Medical Summary | Summary of Care ---
Author Name Unknown Organization [facility] Address [address] [place] [address] Phone [phone] Care Team Providers Care Auricular Detoxification Specialist Name Role Phone Simi Hernandez Tami BROWN Primary Care Provider Encounter Details Date Type Department Care Team (Late st Contact Info) Description 10/10/2024 1:30 PM EST Scheduled Telephone Care Coordination and Integration [address] [place], [place] [phone] José Miguel Cao [facility] Health Backshoe Person [address] [place] [address] Allergies No known active allergiesdocumented as of [...] mouth every night at bedtime. 30 Tablet 10/11/20 22 Active Multivitamin Adult Oral Tablet Take [...] needed for Muscle spasms. 360 Tablet 07/31/20 24 Active Doxycycline Hyclate 50 MG Oral Capsule (Vibramycin)Indica tions:Rosacea TAKE 1 CAPSULE BY MOUTH EVERY OTHER DAY 45 Capsule 07/31/20 24 Active Additional Information Patient not taking.Reported on [...] Debility 11/05/2022 Coronary artery disease invo lving [place] coronary artery of [place] heart without angina pectoris 11/05/2022 Medical home [...] mRNA, LNP-s, No Pre serve, 2-Dose Series (BleepBleeps) 04/18/2022,11/12/2021,01/28/2021,01/14 PPD 06/05/2018 Pneumococcal Conjugate Vacc, 13 [...] No 08/30/2024 Does the household have a [facility] hospitalr source of income? (Household - for [...] PM EDT documented as of this encounter Progress Notes * José Miguel Cao [facility] Backshoe Person - 10/10/2024 1:59 PM EST Telemedicine visit: No Community Health Backshoe Person (RANDEE) documentation: CHW follow up phone call for RNCM and reached the patient's voicemail. CHW left a brief message with the RNCM's callback information. Francois Cao [facility] [phone] documented in this encounter Plan of Treatment Upcoming Encounters Date Type Department Care Team (Late st Contact Info) Description 10/11/2024 10:40 AM EST Office Visit Family [facility] [address] [place] [address] Shane Hsieh MD [address] [place] [address] 10/11/2024 2:05 PM EST NeuroDiagnostic Study Neurophysiology [facility] 132 [facility] [place] [address] Silver Mcduffie, DO 200 [facility] [address] 10/23/2024 3:00 PM EST Office Visit [facility] [place] [address] Simi Hernandez CRNP [facility] [place] [address] 10/24/2024 2:00 PM EST Cardiac Studies Cardiac Studies, [facility] 132 [facility] [place] [address] 10/24/2024 3:00 PM EST Office Visit Cardiology, [facility] 132 [facility] [place] [address] Camille Cuevas PA-C 132 [facility] [place] [address] 10/26/2024 11:00 AM EST Office Visit Dermatology, [place] [address] [place] [address] [place] [address] Kymberly Duque PA-C [address] [place] [address] 11/23/2024 3:00 PM EST Office Visit [facility] 132 [facility] [place] [address] Simi Hernandez CRNP [facility] [place] [address] 01/02/2025 9:15 AM EST Office Visit [facility] [address] [place] [address] Hannah Nicolas MD 200 [facility] [place] [address] 02/04/2025 11:20 AM EDT Office Visit Neurology Chris Cartwright [place] 200 [facility] [place] [address] Andrea Walker MD 200 [facility] [place] [address] 02/13/2025 1:30 PM EDT Office Visit Urology Kirstie Avina [address] [place] [address] [place] [address] Elba Morales PA-C [address] [place], [place] [address] 05/16/2025 8:00 AM EDT Office Visit [address] [address] Edu Chaudhary, DO [address] [place] [address] Scheduled Procedures Name Priority Associated Diagnoses Date/Ti [...] 12/17/2019, Additional history exists GFR 08/22/2025 08/22/2024, 08/12/2023, 06/26/2024, Additional history exists Depression Monitoring 08/30/2025 08/30/2024 Colonoscopy 05/05/2028 05/05/2023, 06/06/2023, 11/04/2022, Additional history exists Colorectal Cancer Screening 05/05/2028 COVID-19 Vaccine Discontinued 06/04/2022, 06/2022, 04/18/2022, Additional history exists VITAMIN D LEVEL ONCE IN A LIFETIME-USE SMARTSET# [id number] Completed 01/17/2023, 04/05/2022, 04/28/2021, Additional history exists [...] and were consensually agreed upon. Care Teams Auricular Detoxification Specialist Relationship Specialty Start Date End Date Simi Hernandez CRNP [address] [place] [address] PCP - General Nurse Practitioner 10/05/22 documented as of this encounter
--- OUTSIDE RECORDS SUMMARY | 2024-10-14 14:33 | External Medical Summary | Summary of Care ---
Author Name Unknown Organization [facility] Address [address] [place] [address] Phone [phone] Care Team Providers Care Physical Security Specialist Name Role Phone Simi Hernandez Tami BROWN Primary Care Provider Reason for Visit * Reason Onset Date Comments Appointment 10/02/2024 Encounter Details Date Type Department Care Team (Late st Contact Info) Description 10/02/2024 Telephone Dermatology [facility] [address] [facility] [place] [address] Hannah Nicolas MD [address] [place] [address] Appointment Allergies No known active allergiesdocumented as [...] Debility 11/05/2022 Coronary artery disease invo lving [place] coronary artery of [place] heart without angina pectoris 11/05/2022 Medical [...] mRNA, LNP-s, No Pre serve, 2-Dose Series ([employer]) 04/18/2022,11/12/2021,01/28/2021,01/14 PPD 06/05/2018 Pneumococcal Conjugate Vacc, 13 [...] encounter Miscellaneous Notes * Telephone Encounter - Claudine Saunders OSA - 10/02/2024 12:14 PM EST Patient has been rescheduled from 10/09/2024 to December 2024 and added to wait list * Telephone Encounter - Kaci Shook OSA - 10/02/2024 9:47 AM EST Patient is admitted in hospital [facility] she need to cancel and reschedule her appointment for 10/09/24. Please advise documented in this encounter Plan of Treatment Upcoming Encounters Date Type Department Care Team (Late st Contact Info) Description 10/11/2024 2:05 PM EST NeuroDiagnostic Study [facility] [address] [facility] [place] [address] [place], [address] [place] [address] 10/23/2024 3:00 PM EST Office Visit Family Practice [facility] [address] [place] [address] Simi Hernandez CRNP [address] [place] [address] 10/24/2024 2:00 PM EST Cardiac Studies Cardiac Studies, [facility] [address] [facility] [place] [address] 10/24/2024 3:00 PM EST Office Visit Cardiology, [facility] [address] [facility] [place] [address] Camille Cuevas PA-C [address] [place] [address] 10/26/2024 11:00 AM EST Office Visit Dermatology, [facility] [address] [place] [address] Kymberly Duque PA-C [address] [address] 11/23/2024 3:00 PM EST Office Visit Family Practice [facility] [address] [place] [address] Simi Hernandez CR[facility] [place] [address] 01/02/2025 9:15 AM EST Office Visit [facility] [address] Hannah Nicolas MD [address] [place], [place] [address] [address] 02/04/2025 11:20 AM EDT Office Visit Neurology [address] [address] Andrea Walker MD [address] [place] [address] 02/13/2025 1:30 PM EDT Office Visit Urology Kirstie Avina [address] [place] [address] [place] [address] Elba Morales PA-C [address] [place] [address] 05/16/2025 8:00 AM EDT Office Visit [address] [address] Edu Chaudhary, DO [address] [place], [place] [id number] Scheduled Procedures Name Priority Associated Diagnoses Date/Ti [...] D LEVEL ONCE IN A LIFETIME-USE SMARTSET# [id number] Completed 01/17/2023, 04/05/2022, 04/28/2021, Additional history exists [...] and were consensually agreed upon. Care Teams Physical Security Specialist Relationship Specialty Start Date End Date Simi Hernandez CRNP [address] [place] [address] PCP - General Nurse Practitioner 10/05/22 documented as of this encounter
--- OUTSIDE RECORDS SUMMARY | 2024-10-14 14:33 | External Medical Summary | Summary of Care ---
Author Name Unknown Organization [facility] Address [address] [place] [address] Phone [phone] Care Team Providers Care Patient Carrier Name Role Phone Simi Hernandez Primary Care Provider Reason for Visit * Reason Onset Date Comments Hospital Follow-Up [facility] 10/01-: Sepsis secondary to complicated UTI Hospital Follow-Up 10/11/2024 Encounter Details Date Type Department Care Team (Late st Contact Info) Description 10/11/2024 10:40 AM EST Office Visit Family Practice [facility] [address] [id number] Shane Hsieh MD [address] [phone] Hospital discharge follow-up*; Risk and functional assessment; Chronic ulcer of right ankle limited to breakdown of skin (HCC); Ulcer of left lower extremity, unspecified ulcer stage (HCC); Sepsis due to Pseudomonas species, unspecified whether acute organ dysfunction present (HCC); Urinary tract infection without hematuria, site unspecified Allergies No known active allergiesdocumented as of this encounter (statuses as of 10/11/2024) Medications VITAMIN D 1000 UNITS PO CAPSIndications:Os [...] mouth in the morning. 01/04/20 23 Active Omeprazole 40 MG Oral Capsule [...] twice daily 180 Tablet 1 10/08/20 Active LUCITA Knee Brace Medium Please eval and fit for bilateral knee brace as recommended by physical therapy. 2 Each O 07/27/20 024 Discontin ued(Medic ation List Clean Up) documented as of this encounter (statuses as of 10/11/2024) Active Problems Problem Noted Date Diagnosed Date [...] Debility 11/05/2022 Coronary artery disease invo lving menominee coronary artery of menominee heart without angina pectoris 11/05/2022 Medical home [...] as of this encounter (statuses as of 10/11/2024) Resolved Problems Problem Noted Date Diagnosed Date [...] as of this encounter (statuses as of 10/11/2024) Immunizations Name Administration Dates Next Due COVID-19 mRNA, LNP-s, No Pre serve, 2-Dose Series ([employer]) 04/18/2022,11/12/2021,01/28/2021,01/14 COVID-19, LNP-s, No Preserve , Delfino-sucrose, Ages 12+ ([employer]) 06/04/2022 PPD 06/05/2018 Pneumococcal Conjugate Vacc, 13 Valent [...] PM EDT documented as of this encounter Last Filed Vital Signs Vital Sign Reading Time Taken Comments Blood Pressure 102/72 10/11/2024 10:33 AM EST Pulse 72 10/11/2024 10:33 AM EST Temperature 36.1 C (97 F) 10/11/2024 10:33 AM EST Respiratory Rate 16 10/11/2024 10:33 AM EST Oxygen Saturation 99% 10/11/2024 10:33 AM EST Inhaled Oxygen Concentration - - Weight - - Height - - Body Mass Index - - documented in this encounter Patient Instructions * Patient Instructions* Ludwig YARON Hope - 10/11/2024 10:31 AM EST Patient Instructions - Fall Prevention (This education is for all patients over 65 regardless of symptoms) Remember to take your current medications as prescribed. In order to prevent falls, you are encouraged to: Exercise Utilize assistive/adaptive devices Avoid multifocal lenses when walking Avoid hazards in home Maintain a regular toileting schedule Any questions please contact our office. Preventing Falls in the Home (This education is for all patients over 65 regardless of symptoms) As you get older, falls are more likely. Thats because your reaction time slows. Your muscles and joints may also get stiffer, making them less flexible. Illness, medications, and vision changes can also affect your balance. A fall could leave you unable to live on your own. To make your home safer, follow these tips: Floors Put nonskid pads under area rugs Remove throw rugs Replace worn floor coverings Tack carpets firmly to each step on carpeted stairs. Put nonskid strips on the edges of uncarpeted stairs Keep floors and stairs free of clutter and cords Arrange furniture so there are clear pathways Clean up any spills right away Bathrooms Install grab bars in the tub or shower Apply nonskid strips or put a nonskid rubber mat in the tub or shower Sit on a bath chair to bathe Use bathmats with nonskid backing Lighting Keep a flashlight in each room Put a nightlight along the pathway between the bedroom and the bathroom [employer] Patient Education Copyright 2008 - 2010 [employer] except where otherwise noted Preventing Falls: Exercises to Improve Balance, Flexibility, Strength, and Staying Power (This education is for all patients over 65 regardless of symptoms) Certain types of exercises may help make you less likely to fall. Try the ones below. Or do other exercises that your healthcare provider suggests. Depending on your health, you may need to start slowly. Dont let that stop you. Even small amounts of exercise can help you. Be sure to talk to yourhealthcare provider before starting any exercise program. Improve Balance Many types of exercise can help improve balance. Anival chi and yoga are good examples. Heres another one to try. You can do it anytime and almost anywhere. Stand next to a counter or solid support. Push yourself up onto your tiptoes. Hold for 5 seconds. If you start to lose your balance, hold on to the counter. Rest and repeat 5 times. Work up to holding for 20 to 30 seconds, if you can. Increase Flexibility Being more flexible makes it easier for you to move around safely. Try exercises like the seated hamstring stretch. Sit in a chair and put one foot on a stool. Straighten your leg and reach with both hands down either side of your leg. Reach as far down your leg as you can. Hold for about 20 seconds. Go back to the starting position. Then repeat 5 times. Switch legs. Build Strength Resistance exercises help build strength. You can do them without equipment. Or you can use weights, elastic bands, or special machines. One such exercise is called the biceps curl. You can hold a 1 pound weight or even a can of soup. Do this exercise at least 3 times a week. Strive for everyday. Sit up straight in a chair. Keep your elbow close to your body and your wrist straight. Bend your arm, moving your hand up to your shoulder. Then slowly lower your arm. Repeat 5 times. Switch to the other arm. Build Your Staying Power Aerobic exercises make your heart and lungs stronger so you can keep moving longer. Walking and swimming are two of the best types of exercises you can do. Using a stationary bike is great, too. Find an aerobic exercise that you enjoy. Start slowly and build up. Even 5 minutes is helpful. Aimfor a goal of 30 minutes, at least 3 times a week. You dont have to do 30 minutes in one session. Break it up and walk a little throughout the day. More Helpful Tips Start easy. Slowly work up to doing more. Talk with your healthcare provider about the best exercises for you. Call senior centers or health clubs about exercise programs. If needed, have a family member watch you walk every so often to check your stability. Exercise with a friend. Choose an activity you both enjoy. Try exercises that you can do anytime, anywhere. Here are two examples. Have someone with you when you first try these: Practice walking by placing one foot right in front of the other. Stand up and sit down 10 times. Repeat this throughout the day. Es[employer] Patient Education Copyright 2008 [employer] except where otherwise noted. Preventing Falls: Moving Safely Using a Cane or Walker (This education is for all patients over 65 regardless of symptoms) Keep the cane away from your feet so you dont trip. A walking aid, such as a cane or walker, can help you stay more independent and avoid falls. Remember to keep your walking aid within easy reach when youre in a chair or in bed. And learn how to use it safely so you dont injure yourself. Using a Cane If you have a stronger side, hold the cane on that side. Get your balance. Move the cane and your weaker leg forward. Support your weight on both the cane and your weaker side. Step with your stronger leg. Start again from step 1. If youre using a folding walker, be sure you know how to lock it open. Check that its locked open before each use. Using a Walker Roll the walker (or lift it, if youre using one without wheels) forward about 12 inches. Step forward with your weaker leg first. Use the walker to help keep your balance. Bring your other foot forward to the center of the walker. Start again from step 1. Helpful Tips Check with your healthcare provider about the right walking aid to use. Ask about a walker with a seat attached. Check the tips of your cane or walker to make sure they have nonskid covers. Move slowly from room to room. Dont coleman. Sit down to get dressed. Use a jihan pack or backpack to keep your hands free. Get help for jobs that mean climbing, even on a stepstool. [employer] Patient Education Copyright 2008 - 2010 [employer] except where otherwise noted. Urinary Incontinence Plan of Care Documentation: (This education is for all patients over 65 regardless of symptoms) Current medications reconciled. Patient encouraged to: Practice kegal exercises Provide education materials Use the restroom every 2 hours throughout the day Limit caffeine, alcohol, spicy foods and acidic foods Keep a bladder diary Limit fluid intake 3-4 hours before bed Lose weight Prevent constipation Take fluid pills at a time when you can get to the bathroom quickly Control sugar better if diabetic Limit fluid intake to 60 oz. per day Wear support stockings (TEDs)if you have edema Herminia Munroe LPN 10/11/2024 Kegel Exercises Kegel exercises dont require special clothing or equipment. Theyre easy to learn and simple to do. And if you do them right, no one can tell youre doing them, so they can be done almost anywhere. Your doctor, nurse, or physical therapist can answer any questions you have and help you get started. A Weak Pelvic Floor The pelvic floor muscles may weaken due to aging, and vaginal childbirth, injury, surgery, chronic cough, or lack of exercise. If the pelvic floor is weak, your bladder and other pelvic organs may sag out of place. The urethra may also open too easily and allow urine to leak out. Kegel exercises can help you strengthen your pelvic floor muscles so they can better support the pelvic organs and control urine flow. How Kegel Exercises Are Done Try each of the Kegel exercises described below. When youre doing them, try not to move your leg, buttock, or stomach muscles. While youre urinating, try to stop the flow of urine. Start and stop it as often as you can. Contract as if you were stopping your urine stream, but do it when youre not urinating. Tighten your rectum as if trying not to pass gas. Contract your anus, but dont move your buttocks. Helpful Hints Do your Kegels as often as you can. The more you do them, the faster youll feel the results. Pick an activity you do often as a reminder. For instance, do your Kegels every time you sit down. Tighten your pelvic floor before you sneeze, get up from a chair, cough, laugh, or lift. This protects your pelvic floor from injury and can help prevent urine leakage. Try to hold each Kegel for a slow count to five. You probably wont be able to hold them for thatlong at first, but keep practicing. It will get easier as your pelvic floor gets stronger. Eventually, special weights that you place in your vagina may be recommended to help make your Kegels even more effective. [employer] Patient Education Copyright 2009 - 2010 [employer] except where otherwise noted. Here are some helpful tips for your urinary incontinence: (This education is for all patients over 65 regardless of symptoms) Practice Kegel exercises Use the restroom every 2 hours throughout the day Limit caffeine, alcohol, spicy foods, and acidic foods Keep a bladder diary Limit fluid intake 3-4 hours before bed Lose weight Prevent constipation Take fluid pills at a time when can get to the bathroom quickly Control sugar better if diabetic Limit fluid intake to 60 oz. per day Any questions, please feel free to contact our office. documented in this encounter Progress Notes * Shane Hsieh MD - 10/11/2024 10:49 AM EST SUBJECTIVE: Kandy Shelby is a 73 year old female. Chief Complaint Patient presents with Hospital Follow-Up [facility] 10/01-10/08: Sepsis secondary to complicated UTI Hospital Follow-Up Recent Admission: Patient was recently admitted to [facility] 10/01/24. The date of discharge was 10/08/24. Discharge reportreceived and reviewed. HPI: Complex past medical history had previously been discharged on September 18 for lower extremity cellulitis. She had finished cephalexin was feeling well. The day before admission started to feelweak and dizzy stood up felt dizzy and while walking fell on the floor hitting the right side of her face. She was brought to the ER. Patient was hypotensive with tachycardia temperature 38.2 C. Blood pressure dropped to the 70s was. Was given total 3 L normal saline hydrocortisone IV due to chronic steroid use and started on Levophed. She was diagnosed with complicated UTI due to Pseudomonas. She has chronic redness bilateral lower extremity and chronic ulcer right leg she states she has had2 surgeries on [address] Dr. Velasco podiatry. She has been on IV vancomycin and cefepime and caspofunginthat were all discontinued and remained on IV cefepime for complete course of 7 days total of IV antibiotics. Cipro was discontinued due to fear of having in her interaction with her other medications. Since discharged home she has been feeling well no fever no chills. She did have some subjective warmth today. She does not have a thermometer at home. Today her blood pressure is okay and she is afebrile here. No dysuria no frequency. She declined SNF. 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 Presence of intrathecal baclofen pump Medical home patient encounter Debility Coronary artery disease involving menominee coronary artery of menominee heart without angina pectoris HTN, goal below 140/90 Dyslipidemia, goal LDL below 70 Paroxysmal A-fib ([facility]) Hydronephrosis Bladder dysfunction Noninfected skin tear of left leg Pyogenic inflammation of bone ([facility]) Encounter for management of wound VAC Protein-calorie malnutrition ([facility]) Need for prophylactic vaccination and inoculation against influenza Dysuria Chronic ulcer of right foot ([facility]) Chronic deep vein thrombosis (DVT) of left peroneal vein ([facility]) Chronic osteomyelitis of fibula ([facility]) Nonrheumatic aortic valve stenosis Prepatellar bursitis due to group B Streptococcus, left Moderate episode of recurrent major depressive disorder ([facility]) Pressure injury of sacral region, stage [...] 1 Tablet by mouth in the morning. Omeprazole 40 MG Oral Capsule Delayed Release [...] needed for Muscle spasms. 360 Tablet 0 Doxycycline Hyclate 50 MG Oral Capsule (Vibramycin) TAKE 1 CAPSULE BY MOUTH EVERY OTHER DAY (Patient not taking: Reported on 09/19/2024) 45 Capsule 0 Cephalexin 500 MG Oral Capsule (Keflex) Take 1 Capsule by mouth in the morning and 1 Capsule at noon and 1 Capsule in the evening and 1 Capsule before bedtime. Started 09/19/24, for 4 days. Azelaic Acid 15 % External Gel (Finacea) Apply to face twice daily as needed 50 g 1 Eliquis 5 MG Oral Tablet Take 1 tablet by mouth twice daily 180 Tablet 1 No current facility-administered medications for this visit. Current and discharge medications have been reconciled. Review of patient's allergies indicates: No Known Allergies OBJECTIVE: BP 102/72 | Pulse 72 | Temp 36.1 C (97 F) (Tympanic) | Resp 16 | SpO2 99% Review Of Systems: Neg except above PHYSICAL EXAM: Physical: BP 102/72 | Pulse 72 | Temp 36.1 C (97 F) (Tympanic) | Resp 16 | SpO2 99% General-No apparent Distress in wheelchair Head, Eyes, Ears, Nose, Throat--Normocephalic, bruising right side of face, NT Neck-Supple Lymph-no lymphadenopathy Lungs-Clear to Auscultation bilaterally Cardiovascular--Regular rate & Rhythm, +s1, s2, no murmurs Abdomen-soft, nontender, nondistended + bowel sounds Extremities--redness b/l shins to ankles. Skin-1cm scabbed ulcer right lateral ankle. Supercifical ulcer right calf & left resendez 1cm Neuro-alert & oriented x3 ASSESSMENT: Hospital discharge follow-up (Primary) - DISCH MED RECON CUR MED LIS Risk and functional assessment (Z09) Hospital discharge follow-up (primary encounter diagnosis) Plan: DISCH MED RECON CUR MED LIS Sepsis resolved (Z13.9) Risk and functional assessment Plan: (L97.311) Chronic ulcer of right ankle limited to breakdown of skin (HCC) Plan: f/u PCP. Consider wound clinic vs podiatry f/u (V72.721) Ulcer of left lower extremity, unspecified ulcer stage (HCC) Plan: bandaid daily until heals (A41.52) Sepsis due to Pseudomonas species, unspecified whether acute organ dysfunction present (HCC) Plan: resolved (N39.0) Urinary tract infection without hematuria, site unspecified Plan: resolved. PLAN: Continue present medication(s): Follow up as needed. I spent a total of 30-39 minutes (exact time 38 mins) minutes on the date of service in preparation, delivery, and documentation of the care provided to Kandy Shelby excluding any time spent in performance of separately billed services. Shane Hsieh MD * Herminia Munroe LPN - 10/11/2024 10:31 AM EST Fall Risk Plan of Care Documentation: - Current medications reconciled Patient encouraged to: - Exercise - Provide education materials for Core strengthening - Utilize assistive/adaptive devices - Provide education materials - Avoid multifocal lenses when walking - Avoid hazards in home - Provide education materials - Maintain a regular toileting schedule Herminia Munroe LPN 10/11/2024 Urinary Incontinence Plan of Care Documentation: (This education is for all patients over 65 regardless of symptoms) Current medications reconciled. Patient encouraged to: Practice kegal exercises Provide education materials Use the restroom every 2 hours throughout the day Limit caffeine, alcohol, spicy foods and acidic foods Keep a bladder diary Limit fluid intake 3-4 hours before bed Lose weight Prevent constipation Take fluid pills at a time when you can get to the bathroom quickly Control sugar better if diabetic Limit fluid intake to 60 oz. per day Wear support stockings (TEDs)if you have edema Herminia Munroe LPN 10/11/2024 documented in this encounter Nursing Notes * Herminia Munroe LPN - 10/11/2024 10:33 AM EST The patient has been properly identified by confirmation of name and date of . Chief Complaint Patient presents with Hospital Follow-Up [facility] 10/01-10/08: Sepsis secondary to complicated UTI documented in this encounter Plan of Treatment Upcoming Encounters Date Type Department Care Team (Late st Contact Info) Description 10/23/2024 3:00 PM EST Office Visit [facility] [address] [facility] [place] [address] Simi Hernandez CRNP [address] [place] [id number] 10/24/2024 2:00 PM EST Cardiac Studies Cardiac Studies, [facility] [address] [facility] [place] [address] 10/24/2024 3:00 PM EST Office Visit Cardiology, [facility] [address] [facility] [address] [address] Camille Cuevas PA-C [address] [place] [address] 10/26/2024 11:00 AM EST Office Visit Dermatology, [facility] [address] [address] Kymberly Duque PA-C [address] [address] 11/23/2024 3:00 PM EST Office Visit [facility] [address] [place] [address] Simi Hernandez CRNP [address] [place] [address] 11/29/2024 2:05 PM EST NeuroDiagnostic Study Neurophysiology [facility] [address] [place] [address] Silver Mcduffie, DO [address] [place] [address] 01/02/2025 9:15 AM EST Office Visit [facility] Surgery [facility] [address] [place] [address] Hannah Nicolas MD [address] [place] [address] 02/04/2025 11:20 AM EDT Office Visit Neurology [facility] [address] [place] [address] Andrea Walker MD [address] [place] [address] 02/13/2025 1:30 PM EDT Office Visit Urology [facility] [address] [place] [address] Elba Morales PA-C [address] [address] 05/16/2025 8:00 AM EDT Office Visit [address] [address] Edu Chaudhary, DO [address] [place] [address] Scheduled Procedures Name Priority Associated Diagnoses Date/Ti [...] Cancer Screening 05/05/2028 COVID-19 Vaccine Discontinued 06/04/2022, , 11/12/2021, Additional history exists VITAMIN D LEVEL ONCE IN A LIFETIME-USE SMARTSET# [id number] Completed 01/17/2023, 04/05/2022, 04/28/2021, Additional history exists [...] Hospital discharge follow-up- Primary Other follow-up examination Risk and functional assessment Screening for unspecified condition Chronic ulcer of right ankle limited to breakdown of skin (HCC) Ulcer of left lower extremity, unspecified ulcer stage (HCC) Sepsis due to Pseudomonas species, unspecified whether acute organ dysfunction present (HCC) Urinary tract infection without hematuria, site unspecified documented in this encounter Advance Directives [...] were consensually agreed upon. Care Teams Patient Carrier Relationship Specialty Start Date End Date Simi Hernandez CRNP [address] [id number] PCP - General Nurse Practitioner 10/05/22 documented as of this encounter"
--- NOTE | 2024-10-14 15:12 | Emergency Department Note ---
Impression & Plan Sepsis, Elevated lactic acid level, Hypomagnesemia, Leukocytosis, Non-ST elevation HI (NSTEMI) ED Provider Note HISTORY OF PRESENT ILLNESS: Patient is a 73-year-old female presenting with chills. Patient reports that today she has had significant chills throughout the day. Denies any measured fevers at home. Reports that she was just discharged from the hospital a week ago after being admitted for a fall and sepsis. She denies any abdominal pain, nausea or vomiting. Denies any chest pain or shortness of breath. Denies any dysuria or hematuria. Denies any recent sick contact exposures. Denies any headache or changes in vision. ROS: as above PHYSICAL EXAM: Constitutional: Patient appears in no acute distress. HENT: Head: Normocephalic and atraumatic. Eyes: EOMI, PERRL Mouth/Throat: Mucous membranes moist. Neck: Trachea midline. Neck supple. Cardiovascular: Tachycardic with regular rhythm. No murmurs, rubs or gallops. Intact distal pulses. Pulmonary/Chest: No respiratory distress. Breath sounds clear and equal bilaterally. No wheezes or rales. Abdominal: Abdomen soft, no tenderness, rebound or guarding. Musculoskeletal: No edema, tenderness or deformity noted. Skin: Warm and dry. No rash, erythema, pallor or cyanosis Psychiatric: Appropriate mood and affect for situation. Neurological: Alert and keenly responsive. CN II-XII grossly intact, moving all extremities equally and fully. MDM: - Vitals signs showed hypertension and tachycardia. - History obtained via patient. History as above. - Chronic conditions affecting care: CAD; HTN; HLD; paroxysmal Afib; nonrheumatic aortic valve stenosis; hx of DVT and PE (s/p IVC filter and on Eliquis); GERD; multiple sclerosis - Differential diagnoses include, but are not limited to: UTI; pneumonia; viral syndrome; bacteremia; electrolyte abnormality; Lyme - Order placed for continuous cardiac monitoring. At this time, monitor showed rate of 105 bpm with normal sinus rhythm, per my interpretation. - External medical records reviewed. Discharge summary dated 10/08/2024 was reviewed. Patient was admitted that time for sepsis secondary to complicated UTI due to Pseudomonas. Patient does have a history of ESBL E. coli UTIs. - EKG interpreted by myself showed normal sinus rhythm. Rate 95 bpm. QT 332. No acute ischemic changes. - Laboratory workup interpreted by myself showed leukocytosis (WBC 32.74) with neutrophil predominance; chronic anemia (Hgb 7.8); normal PT/INR; hypomagnesemia (Mg 1.5); elevated lactate (2.2); elevated troponin (27.1); normal procalcitonin - Blood cultures added to workup - UA ordered - CXR negative for pneumonia, per my interpretation - Patient given 1L NS in ER. Patient sepsis fluid volume calculation based on ideal body weight is 1636.20 mL. An additional 500 cc NS bolus was ordered. - Given 1g IV magnesium for electrolyte replacement. - Empirically started on IV cefepime. - Viral respiratory panel negative - Discussion was had with skilled nursing case manager about patient's case and need for admission - Hospitalist, Dr. Rondon, consulted for admission - Patient admitted to [facility] Hospitalist service for further evaluation and management. ASSESSMENT AND PLAN: Diagnosis: Sepsis; hypomagnesemia; leukocytosis; NSTEMI; elevated lactic acid level Plan: Admit Past Med/Surg History Problem List Non-ST elevation HI (NSTEMI) (Acute) Leukocytosis (Acute) Hypomagnesemia (Acute) Elevated lactic acid level (Acute) Sepsis (Acute) Complicated UTI (urinary tract infection) Lower extremity cellulitis Septic shock Shock circulatory Contusion of face (Acute) Head injury (Acute) Fall (Acute) Cellulitis (Acute) Sepsis (Acute) Osteoarthritis of knees, bilateral Knee pain (Acute) Septic prepatellar bursitis (Acute) Paroxysmal atrial fibrillation Wound infection CLABSI (central line-associated bloodstream infection) Bacteremia Fungemia Myocardial strain Tachycardia Rosacea Hypomagnesemia Diarrhea Acute deep vein thrombosis of left lower extremity (Chronic) Traumatic open wound of right lower leg (Acute) Catheter-associated urinary tract infection Sepsis (Acute) Leg wound, right (Acute) Skin tear of left upper extremity (Acute) Chronic refractory osteomyelitis of ankle (Acute) Surgical wound, non healing (Acute) Osteomyelitis of ankle (Acute) Sepsis (Acute) Cellulitis of left lower leg (Acute) Chronic ulcer of right foot (Acute) HX: breast cancer Left breast cancer with surgery and chemo/radiation-left arm restriction Chronic anemia Paroxysmal atrial fibrillation Lower extremity edema (Chronic) Traumatic open wound of left lower leg with delayed healing (Acute) Ulcer of right ankle (Acute) Paroxysmal atrial fibrillation with RVR Hypotension Acute UTI (Acute) UTI (urinary tract infection) (Acute) Status post reverse total replacement of right shoulder (~04/2022) Encounter for pre-operative examination Closed right scapular fracture Sepsis Hypertension Multiple sclerosis Elevated troponin (Acute) Sepsis (Acute) Elevated troponin I level (Acute) Hypotension (Acute) Elevated lactic acid level (Acute) GERD (gastroesophageal reflux disease) controlled, stable per pt CAD (coronary artery disease) Non-obstructive per 06/2021 cardiac cath History of supraventricular tachycardia History of pulmonary embolism ~ 6 yrs ago, IVC filter still in place History of DVT (deep vein thrombosis) ~6 yrs ago Multiple sclerosis (Chronic) Follows with Dr. Walker/[facility] Stable Osteoporosis (Chronic) Neurogenic bladder (Chronic) SELF CATH 2-3 X'S PER DAY *RECENT HOSPITALIZATION FOR UTI Raynaud disease (Chronic) Presence of intrathecal pump (Chronic) baclofen pump in place--status post revision/replacement 08/10/2022 S/P IVC filter (Chronic) H/O left mastectomy (Chronic) with lymph node removal>LEFT ARM RESTRICTION History of open reduction and internal fixation (ORIF) procedure (Chronic) "left hip" S/P partial hysterectomy (Chronic) History of appendectomy (Chronic) Medical History Osteoarthritis of right knee Cellulitis of right lower extremity Anemia Cellulitis Acute leg pain Fever History of recent hospitalization 09/2022 [facility] - sepsis History of blood transfusion Limb alert care status left arm Osteoarthritis of right shoulder History of GI bleed Upper GIB (2019) felt 2/2 NSAID use History of non-ST elevation myocardial infarction (NSTEMI) 06/2021 (had heart cath, no stents) Hx of gastric ulcer 02/2021 Anemia Hypertension controlled, stable per pt Surgical History History of removal of Port-a-Cath (02/09/24) Mediport Removal(Right) - Tristin Lazo DO Port-A-Cath in place (09/29/23) A-Port Insertion, right internal jugular(Right) - Tristin Lazo DO S/p reverse total shoulder arthroplasty right: 05/25/22 LMA#4. No postop issues per anesthesia progress note. History of cardiac cath Cardiac cath (07/06/21; [facility]) > Right dominant coronary system. No evidence of aortic stenosis. Normal left ventricular filling pressures. Nonobstructive disease involving the ostial LAD. No evidence of acute coronary syndrome. Approximately 50% ostial stenosis of the LAD. There was some very mild disease at the ostium of the left circumflex. Recommendations: Medical management. History of esophagogastroduodenoscopy (EGD) History of colonoscopy History of tooth extraction Family History Mother Heart disorder Other No family history of adverse response to anesthesia Social History Smoking Status: Former smoker Tobacco Type: Cigarettes packs per day: 1; Cigarettes Per Day: stopped in 1977; Second Hand Exposure: No; Do You Dip or Chew Tobacco: No; Hx Alcohol Use: No Hx Substance Use: No Preferred Language: Macedonian Communication Ability: Effective Visual Impairment: Limited Hearing Ability: Use of Hearing Aid Timber Cutter Required: No Beliefs That Will Affect Care: None marital status: / Current Living Situation: Alone Current Living Situation Comment: daughters are an hour away but check on her frequently per pt current occupational status: retired How many Children do You have: 3 Feels Safe at Home: Yes Childhood Exposure to Second-Hand Smoke: Yes Diet: regular caffeine: Yes Assistive Devices: Walker and Wheelchair Allergies Allergies Allergy/AdvReac Type Severity Reaction Status Date / Time No Known Allergies Allergy Verified 08/28/24 12:57 Home Meds Home Medications Medication Instructions Recorded Confirmed cholecalciferol (vitamin D3) 25 2,000 units PO QAM 09/18/18 10/01/24 mcg (1,000 unit) capsule escitalopram oxalate 20 mg tablet 20 mg PO QAM 09/18/18 10/01/24 (Lexapro) oxybutynin chloride 15 mg 15 mg PO QAM 09/18/18 10/01/24 tablet,extended release 24 hr prednisone 10 mg tablet 10 mg PO QAM 09/18/18 10/01/24 omeprazole 40 mg capsule,delayed 40 mg PO QAM 07/06/21 10/01/24 release teriflunomide 14 mg tablet 14 mg PO QPM 06/16/22 11/04/24 (Aubagio) doxycycline hyclate 50 mg capsule 50 mg PO Q2D Rosacea 08/10/22 10/01/24 melatonin 3 mg tablet 3 mg PO HS 03/05/23 10/01/24 multivitamin 1 tab PO DAILY 03/05/23 10/01/24 Baclofen Pump 0 mg SC DIRECTED 08/05/23 10/01/24 apixaban 5 mg tablet (Eliquis) 5 mg PO BID 02/03/24 10/01/24 atorvastatin 40 mg tablet 40 mg PO QAM 09/13/24 10/01/24 duloxetine 30 mg capsule,delayed 30 mg PO DAILY 09/13/24 10/01/24 release metoprolol succinate 25 mg 25 mg PO BID 10/01/24 10/01/24 tablet,extended release 24 hr tizanidine 4 mg tablet (Zanaflex) 4 mg PO Q6H PRN Muscle Spasm 10/01/24 10/01/24 Results & Data (ED) Vital Signs Vital Signs - 24 hr 10/14/24 14:37 10/14/24 14:50 10/14/24 15:00 Temperature 36.6 C Temperature Source Temporal Artery Scan Pulse Rate 90 78 Pulse Rate [Left Finger] 96 H Pulse Rate from SpO2 Sensor Pulse Rhythm Regular Pulse Rhythm [Left Finger] Regular Pulse Strength [Left Finger] Normal Respiratory Rate 18 16 16 Respiratory Effort / Characteristics Non-Labored Spontaneous Non-Labored Spontaneous Respiratory Depth Normal Normal Respiratory Pattern Regular Regular Blood Pressure 139/85 Blood Pressure [Left Arm] 164/92 H Blood Pressure Mean 103 Blood Pressure Mean [Left Arm] 116 Blood Pressure Position [Left Arm] Lying Pulse Oximetry 98 96 98 Oxygen Delivery Method Room Air Room Air Room Air Sepsis Recent Fever Within 48 Hours No Sepsis New/Unexplained Change in Mental Status N/A Sepsis Action Taken by Nursing No Action Required 10/14/24 15:02 10/14/24 15:02 10/14/24 15:03 Temperature Temperature Source Pulse Rate 94 H 103 H Pulse Rate [Left Finger] Pulse Rate from SpO2 Sensor 93 H Pulse Rhythm Pulse Rhythm [Left Finger] Pulse Strength [Left Finger] Respiratory Rate 15 Respiratory Effort / Characteristics Respiratory Depth Respiratory Pattern Blood Pressure 101/60 Blood Pressure [Left Arm] Blood Pressure Mean 69 Blood Pressure Mean [Left Arm] Blood Pressure Position [Left Arm] Pulse Oximetry Oxygen Delivery Method Sepsis Recent Fever Within 48 Hours Sepsis New/Unexplained Change in Mental Status Sepsis Action Taken by Nursing 10/14/24 15:15 10/14/24 15:27 10/14/24 15:30 Temperature Temperature Source Pulse Rate 103 H 103 H 105 H Pulse Rate [Left Finger] Pulse Rate from SpO2 Sensor 103 H Pulse Rhythm Pulse Rhythm [Left Finger] Pulse Strength [Left Finger] Respiratory Rate 20 19 19 Respiratory Effort / Characteristics Respiratory Depth Respiratory Pattern Blood Pressure Blood Pressure [Left Arm] Blood Pressure Mean Blood Pressure Mean [Left Arm] Blood Pressure Position [Left Arm] Pulse Oximetry 97 Oxygen Delivery Method Sepsis Recent Fever Within 48 Hours Sepsis New/Unexplained Change in Mental Status Sepsis Action Taken by Nursing 10/14/24 15:31 10/14/24 15:31 10/14/24 15:31 Temperature Temperature Source Pulse Rate Pulse Rate [Left Finger] Pulse Rate from SpO2 Sensor Pulse Rhythm Pulse Rhythm [Left Finger] Pulse Strength [Left Finger] Respiratory Rate Respiratory Effort / Characteristics Respiratory Depth Respiratory Pattern Blood Pressure 114/58 L 114/58 L 114/58 L Blood Pressure [Left Arm] Blood Pressure Mean 98 98 98 Blood Pressure Mean [Left Arm] Blood Pressure Position [Left Arm] Pulse Oximetry Oxygen Delivery Method Sepsis Recent Fever Within 48 Hours Sepsis New/Unexplained Change in Mental Status Sepsis Action Taken by Nursing 10/14/24 15:33 10/14/24 16:06 10/14/24 16:12 Temperature Temperature Source Pulse Rate 101 H 109 H 109 H Pulse Rate [Left Finger] Pulse Rate from SpO2 Sensor Pulse Rhythm Pulse Rhythm [Left Finger] Pulse Strength [Left Finger] Respiratory Rate 19 19 Respiratory Effort / Characteristics Respiratory Depth Respiratory Pattern Blood Pressure Blood Pressure [Left Arm] Blood Pressure Mean Blood Pressure Mean [Left Arm] Blood Pressure Position [Left Arm] Pulse Oximetry Oxygen Delivery Method Sepsis Recent Fever Within 48 Hours Sepsis New/Unexplained Change in Mental Status Sepsis Action Taken by Nursing 10/14/24 16:15 10/14/24 16:21 10/14/24 16:27 Temperature Temperature Source Pulse Rate 109 H Pulse Rate [Left Finger] Pulse Rate from SpO2 Sensor Pulse Rhythm Pulse Rhythm [Left Finger] Pulse Strength [Left Finger] Respiratory Rate 14 Respiratory Effort / Characteristics Non-Labored Spontaneous Non-Labored Spontaneous Respiratory Depth Normal Normal Respiratory Pattern Blood Pressure Blood Pressure [Left Arm] Blood Pressure Mean Blood Pressure Mean [Left Arm] Blood Pressure Position [Left Arm] Pulse Oximetry Oxygen Delivery Method Sepsis Recent Fever Within 48 Hours Sepsis New/Unexplained Change in Mental Status Sepsis Action Taken by Nursing Laboratory Data 10/14/24 15:00 10/14/24 15:00 Lab Results 10/14/24 10/14/24 10/14/24 Range/Units 15:00 15:14 15:38 WBC 32.74 H* (4.8-10.8) K/ul RBC 2.77 L (4.20-5.40) M/uL Hgb 7.8 L (12.0-16.0) g/dl Hct 25.0 L (37.0-47.0) % MCV 90.3 (80.0-100.0) fL MCH 28.2 (25.0-34.0) pg MCHC 31.2 L (32.0-36.0) g/dL RDW Std Deviation 64.1 H (36.4-46.3) fL RDW Coeff of Tiffanie 19.9 H (11.5-14.5) % Plt Count 332 (130-400) K/uL MPV 10.4 (9.4-12.4) fL Immature Gran % (Auto) 0.9 % Neut % (Auto) 92.2 % Lymph % (Auto) 1.0 % [place] % (Auto) 5.7 % Eos % (Auto) 0.0 % Baso % (Auto) 0.2 % Neut # (Auto) 30.19 H (1.40-6.50) K/uL Lymph # (Auto) 0.32 L (1.20-3.40) K/uL [place] # (Auto) 1.87 H (0.11-0.59) K/uL Eos # (Auto) 0.00 (0.00-0.50) K/uL Baso # (Auto) 0.06 (0.00-0.20) K/uL Immature Gran # (Auto) 0.30 H (0.01-0.20) K/uL Absolute Nucleated RBC 0.02 (0.00-0.12) K/uL Nucleated RBC % (auto) 0.1 % Polychromasia 1+ PT Cancelled 11.4 INR Cancelled 1.1 Sodium 137 (136-145) mmol/L Potassium 4.7 (3.5-5.1) mmol/L Chloride 101 (98-107) mmol/L Carbon Dioxide 28 (21-32) mmol/L Anion Gap 8 (3-11) BUN 29 H (6-23) mg/dl Creatinine 0.69 (0.6-1.2) mg/dl Est Cr Clr Drug Dosing 79.5 ml/min eGFR 92.73 BUN/Creatinine Ratio 42.0 H (10-20) Glucose 115 H (70-99(Fasting)) mg/dl Lactate 2.2 H* (0.4-2.0) mmol/L Calcium 9.4 (8.6-10.3) mg/dl Magnesium 1.5 L (1.7-2.4) mg/dl Total Bilirubin 0.4 (0.2-1.0) mg/dl AST 32 (13-39) U/L ALT 22 (7-52) U/L Alkaline Phosphatase 39 (34-104) U/L Troponin I High Sens 27.1 H (0-14) pg/ml Total Protein 6.0 (6.0-8.3) gm/dl Albumin 3.6 (3.4-5.0) gm/dl Globulin 2.4 L (2.5-4.0) gm/dl Albumin/Globulin Ratio 1.5 (0.9-2) Procalcitonin 0.22 (0-0.5) ng/ml Adenovirus (PCR) Not Detected (NotDetected) B. pertussis DNA (PCR) Not Detected (NotDetected) B.parapertussis DNA PCR Not Detected (NotDetected) C. pneumoniae DNA (PCR) Not Detected (NotDetected) Coronavirus OC43 (PCR) Not Detected (NotDetected) Coronavirus HKU1 (PCR) Not Detected (NotDetected) Coronavirus 229E (PCR) Not Detected (NotDetected) SARS-CoV-2 (PCR) Not Detected (NotDetected) Coronavirus NL63 (PCR) Not Detected (NotDetected) Human Metapneumovir PCR Not Detected (NotDetected) Influenza Type A (PCR) Not Detected (NotDetected) Influenza Type B (PCR) Not Detected (NotDetected) M. pneumoniae (PCR) Not Detected (NotDetected) Parainfluenza 1 (PCR) Not Detected (NotDetected) Parainfluenza 2 (PCR) Not Detected (NotDetected) Parainfluenza 3 (PCR) Not Detected (NotDetected) Parainfluenza 4 (PCR) Not Detected (NotDetected) RSV (PCR) Not Detected (NotDetected) Entero/Rhino (PCR) Not Detected (NotDetected) Administered Medications Sodium Chloride (Nss) 1,000 mls @ 999 mls/hr IV .Q1H1M MICHELLE Stop: 10/14/24 17:00 Last Admin: 10/14/24 16:30 Dose: 999 mls/hr Documented By: KARY Magnesium Sulfate/Dextrose (Magnesium Sulfate / D5w) 1 gm in 100 mls @ 100 mls/hr IV NOW STA Stop: 10/14/24 16:49 Last Admin: 10/14/24 16:31 Dose: 100 mls/hr Documented By: KARY Discontinued Medications Cefepime HCl (Maxipime 2000mg) 2,000 mg in 20 mls @ 5 mls/min IV NOW STA; Protocol Stop: 10/14/24 15:50 Last Admin: 10/14/24 16:31 Dose: 5 mls/min Documented By: KARY Imaging Data Radiologist's Impression: Chest X-Ray 10/14/24 14:50 EXAM: Radiograph of the Chest 1 View INDICATION: Dyspnea. TECHNIQUE: Frontal view of the chest. COMPARISON: 10/02/2024 FINDINGS: Lungs and pleural spaces: Stable chronic interstitial changes and hyperinflation. Chronic likely compressive atelectasis in the left base unchanged. Heart: Shape and configuration within normal limits allowing for technique. Mediastinum: Stable moderate to large hiatal hernia. Bones/joints: Degenerative changes noted in the scoliotic spine. No acute osseous abnormality noted. Visualized right shoulder arthroplasty components grossly intact. Degenerative changes noted in the left shoulder. Soft tissues: No abnormality noted. No radiopaque foreign body noted. Upper abdomen: No abnormality noted. IMPRESSION: Stable chronic changes. No acute disease. ACT 112: Negative or not required by law. Electronically signed by Zuly Wade 10-14-2024 3:34 PM Discharge Plan Visit Data Chief Complaint: Illness Stated Complaint: CHILLS, POSSIBLE FEVER ED Provider: Elida Vasquez Discharge Problem: Sepsis, Elevated lactic acid level, Hypomagnesemia, Leukocytosis, Non-ST elevation HI (NSTEMI) Forms Stand Alone Forms: My [facility] Prescriptions Prescriptions: No Action prednisone 10 mg tablet 10 mg PO QAM oxybutynin chloride 15 mg tablet extended release 24hr 15 mg PO QAM cholecalciferol (vitamin D3) 1,000 unit capsule 2,000 units PO QAM escitalopram oxalate [Lexapro] 20 mg tablet 20 mg PO QAM teriflunomide [Aubagio] 14 mg tablet 14 mg PO QPM doxycycline hyclate 50 mg capsule 50 mg PO Q2D Hold Instructions: Please hold off on taking this medication until you complete the full course of Keflex for treatment of your cellulitis! You can resume taking this medication once you finish the full 4-day course of Keflex therapy. multivitamin Tablet 1 tab PO DAILY melatonin 3 mg Tablet 3 mg PO HS omeprazole 40 mg capsule,delayed release(DR/EC) 40 mg PO QAM Baclofen Pump 0 mg SC DIRECTED Rx Instructions: continuous. FAMILY UNSURE OF MAX DOSE BUT IT IS A CONTINOUS PUMP. Eliquis 5 mg tablet 5 mg PO BID atorvastatin 40 mg tablet 40 mg PO QAM duloxetine 30 mg capsule,delayed release(DR/EC) 30 mg PO DAILY tizanidine [Zanaflex] 4 mg tablet 4 mg PO Q6H PRN (Reason: Muscle Spasm) metoprolol succinate 25 mg tablet extended release 24 hr 25 mg PO BID Referrals Referrals: Simi Hernandez CRNP [Primary Care Provider] -
--- NOTE | 2024-10-14 15:35 | XRay Report ---
EXAM: Radiograph of the Chest 1 View INDICATION: Dyspnea. TECHNIQUE: Frontal view of the chest. COMPARISON: 10/02/2024 FINDINGS: Lungs and pleural spaces: Stable chronic interstitial changes and hyperinflation. Chronic likely compressive atelectasis in the left base unchanged. Heart: Shape and configuration within normal limits allowing for technique. Mediastinum: Stable moderate to large hiatal hernia. Bones/joints: Degenerative changes noted in the scoliotic spine. No acute osseous abnormality noted. Visualized right shoulder arthroplasty components grossly intact. Degenerative changes noted in the left shoulder. Soft tissues: No abnormality noted. No radiopaque foreign body noted. Upper abdomen: No abnormality noted. IMPRESSION: Stable chronic changes. No acute disease. ACT 112: Negative or not required by law. Electronically signed by Zuly Wade 10-14-2024 3:34 PM
[2024-10-14 15:36] LABS: Albumin Globulin Ratio 1.5 (0.9-2); Albumin Level 3.6 gm/dl (3.4-5.0); Bilirubin,Total 0.4 mg/dl (0.2-1.0); Calcium 9.4 mg/dl (8.6-10.3); Creatinine Clr Calc Pharmacy 79.5 ml/min; Globulin 2.4 gm/dl (2.5-4.0); Magnesium 1.5 mg/dl (1.7-2.4); Potassium 4.7 mmol/L (3.5-5.1)
[2024-10-14 15:43] LABS: Troponin I High Sensitivity 27.1 pg/ml (0-14)
[2024-10-14 15:46] LABS: Basophils # (auto) 0.06 K/uL (0.00-0.20); Basophils % (auto) 0.2 %; Hemoglobin 7.8 g/dl (12.0-16.0); Immature Granulocytes % (auto) 0.9 %; Lymphocytes # (auto) 0.32 K/uL (1.20-3.40); Mean Corpuscular Hemoglobin 28.2 pg (25.0-34.0); Mean Corpuscular Hgb Conc 31.2 g/dL (32.0-36.0); Mean Corpuscular Volume 90.3 fL (80.0-100.0); Mean Platelet Volume 10.4 fL (9.4-12.4); Monocytes # (auto) 1.87 K/uL (0.11-0.59); Monocytes % (auto) 5.7 %; Neutrophils # (auto) 30.19 K/uL (1.40-6.50); Neutrophils % (auto) 92.2 %; Nucleated RBC # (auto) 0.02 K/uL (0.00-0.12); Nucleated RBC % (auto) 0.1 %; Platelet Count 332 K/uL (130-400); Polychromasia 1+; RDW Coefficient of Variation 19.9 % (11.5-14.5); RDW Standard Deviation 64.1 fL (36.4-46.3); Red Blood Count 2.77 M/uL (4.20-5.40); White Blood Count 32.74 K/ul (4.8-10.8)
[2024-10-14 16:04] LABS: Adenovirus PCR Not Detected (NotDetected); Bordetella parapertussis PCR Not Detected (NotDetected); Bordetella pertussis PCR Not Detected (NotDetected); Chlamydia pneumoniae PCR Not Detected (NotDetected); Coronavirus 229E PCR Not Detected (NotDetected); Coronavirus CoV-2 (COVID19)PCR Not Detected (NotDetected); Coronavirus HKU1 PCR Not Detected (NotDetected); Coronavirus NL63 PCR Not Detected (NotDetected); Coronavirus OC43PCR Not Detected (NotDetected); Human Metapneumovirus PCR Not Detected (NotDetected); Influenza A PCR Not Detected (NotDetected); Influenza B PCR Not Detected (NotDetected); Mycoplasma pneumoniae PCR Not Detected (NotDetected); Parainfluenza Virus 1 PCR Not Detected (NotDetected); Parainfluenza Virus 2 PCR Not Detected (NotDetected); Parainfluenza Virus 3 PCR Not Detected (NotDetected); Parainfluenza Virus 4 PCR Not Detected (NotDetected); Respiratory Syncytial VirusPCR Not Detected (NotDetected); Rhinovirus/Enterovirus PCR Not Detected (NotDetected)
[2024-10-14 16:28] LABS: INR 1.1 (0.9-1.1); Prothrombin Time 11.4 Seconds (9.0-12.0)
[2024-10-14] MEDS: SODIUM CHLORIDE 0.9% 1,000 ML IV SCH (16:30)
[2024-10-14] MEDS: MAGNESIUM SULFATE / D5W 1 GM/100 ML BAG IV STA (16:31)
[2024-10-14] MEDS: CEFEPIME 2000MG 2,000 MG/20 ML SYR IV STA (16:31)
--- NOTE | 2024-10-14 16:46 | History & Physical Report ---
Date of Service October 14, 2024 Assessment & Plan (1) Sepsis: (2) Elevated lactic acid level: (3) Hypomagnesemia: (4) Leukocytosis: (5) Complicated UTI (urinary tract infection): (6) Multiple sclerosis: (7) Presence of intrathecal pump: (8) Immunocompromised due to corticosteroids: Plan Cultures are pending Patient was given an IV fluid bolus Continue IV cefepime for now Trend labs Continue home medications Magnesium replaced VTE prophylaxis: Patient is on chronic apixaban Patient is a full code Consider PT and OT consult Total 75 minutes was spent in the care, review of data, examination and care coordination for this patient History of Present Illness Chief Complaint: chills Primary Care Provider: KEVIN Lema is a 73y/o F with PMHx significant for CAD, HTN, HLD, PAF, PSVT, nonrheumatic aortic valve stenosis, Raynaud's syndrome, history ESBL E. coli UTI, prior DVT with pulmonary emboli s/p IVC filter placement [on Eliquis], GERD with esophagitis, protein-calorie malnutrition, neurogenic bladder, multiple sclerosis [on chronic prednisone + Aubagio-], polyneuropathy with chronic pain on Baclofen pump, tobacco use, anemia of chronic disease [baseline Hgb ~9-10], depression with anxiety, sicca syndrome, history of nonmelanoma skin cancer s/p Mohs operation, left breast cancer s/p radiation + surgery, rosacea [on doxycycline], right foot drop, bilateral lower extremity venous stasis, chronic osteomyelitis of the right fibula, chronic right lateral ankle wound and r ecurrent right lower extremity cellulitis and recent admit for complicated UTI and sepsis who presents to the ED today with significant chills throughout the day. She denies any measured fevers at home. She reports that she was just discharged from the hospital a week ago after being admitted for a fall and sepsis. She denies any abdominal pain, nausea or vomiting. Denies any chest pain or shortness of breath. Denies any dysuria or hematuria but does have urinary incontinence at times due to her MS. Denies any recent sick contact exposures. Denies any headache or changes in vision. In the ED she has significant leukocytosis with a white count of 32,000. Her lactate is mildly elevated at 2.2. She was given IV cefepime in the ED after cultures were drawn. Her hemoglobin is down to 7.8 from 8.6 from her prior admission. She denies any bleeding. Her troponins were quite elevated on her last admission but troponins x 2 in the ER are slightly elevated but flat. Her EKG shows a sinus rhythm. There is no tachycardia. Her chest x-ray was reviewed and shows chronic stable changes and no acute infiltrate. Her UA is not back yet. Magnesium was low and she is receiving IV magnesium Allergies Allergy/AdvReac Type Severity Reaction Status Date / Time No Known Allergies Allergy Verified 10/14/24 16:50 Home Medications Medication Instructions Recorded Confirmed Type cholecalciferol (vitamin D3) 25 2,000 units PO QAM 09/18/18 10/14/24 History mcg (1,000 unit) capsule escitalopram oxalate 20 mg tablet 20 mg PO QAM 09/18/18 10/14/24 History (Lexapro) oxybutynin chloride 15 mg 15 mg PO QAM 09/18/18 10/14/24 History tablet,extended release 24 hr prednisone 10 mg tablet 10 mg PO QAM 09/18/18 10/14/24 History omeprazole 40 mg capsule,delayed 40 mg PO QAM 07/06/21 10/14/24 History release teriflunomide 14 mg tablet 14 mg PO QPM 05/13/22 10/14/24 History (Aubagio) doxycycline hyclate 50 mg capsule 50 mg PO Q2D Rosacea 08/10/22 10/14/24 History melatonin 3 mg tablet 3 mg PO HS 03/05/23 10/14/24 History multivitamin 1 tab PO DAILY 03/05/23 10/14/24 History Baclofen Pump 0 mg SC DIRECTED 08/05/23 10/14/24 History apixaban 5 mg tablet (Eliquis) 5 mg PO BID 02/03/24 10/14/24 History atorvastatin 40 mg tablet 40 mg PO QAM 09/13/24 10/14/24 History duloxetine 30 mg capsule,delayed 30 mg PO DAILY 09/13/24 10/14/24 History release metoprolol succinate 25 mg 25 mg PO BID 10/01/24 10/14/24 History tablet,extended release 24 hr tizanidine 4 mg tablet (Zanaflex) 4 mg PO Q6H Muscle Spasm 10/01/24 10/14/24 History Past Med/Surg History Problem List Immunocompromised due to corticosteroids Non-ST elevation MD (NSTEMI) (Acute) Leukocytosis (Acute) Hypomagnesemia (Acute) Elevated lactic acid level (Acute) Sepsis (Acute) Complicated UTI (urinary tract infection) Lower extremity cellulitis Septic shock Shock circulatory Contusion of face (Acute) Head injury (Acute) Fall (Acute) Cellulitis (Acute) Sepsis (Acute) Osteoarthritis of knees, bilateral Knee pain (Acute) Septic prepatellar bursitis (Acute) Paroxysmal atrial fibrillation Wound infection CLABSI (central line-associated bloodstream infection) Bacteremia Fungemia Myocardial strain Tachycardia Rosacea Hypomagnesemia Diarrhea Acute deep vein thrombosis of left lower extremity (Chronic) Traumatic open wound of right lower leg (Acute) Catheter-associated urinary tract infection Sepsis (Acute) Leg wound, right (Acute) Skin tear of left upper extremity (Acute) Chronic refractory osteomyelitis of ankle (Acute) Surgical wound, non healing (Acute) Osteomyelitis of ankle (Acute) Sepsis (Acute) Cellulitis of left lower leg (Acute) Chronic ulcer of right foot (Acute) HX: breast cancer Left breast cancer with surgery and chemo/radiation-left arm restriction Chronic anemia Paroxysmal atrial fibrillation Lower extremity edema (Chronic) Traumatic open wound of left lower leg with delayed healing (Acute) Ulcer of right ankle (Acute) Paroxysmal atrial fibrillation with RVR Hypotension Acute UTI (Acute) UTI (urinary tract infection) (Acute) Status post reverse total replacement of right shoulder (~04/2022) Encounter for pre-operative examination Closed right scapular fracture Sepsis Hypertension Multiple sclerosis Elevated troponin (Acute) Sepsis (Acute) Elevated troponin I level (Acute) Hypotension (Acute) Elevated lactic acid level (Acute) GERD (gastroesophageal reflux disease) controlled, stable per pt CAD (coronary artery disease) Non-obstructive per 06/2021 cardiac cath History of supraventricular tachycardia History of pulmonary embolism ~ 6 yrs ago, IVC filter still in place History of DVT (deep vein thrombosis) ~6 yrs ago Multiple sclerosis (Chronic) Follows with Dr. Walker/[facility] Stable Osteoporosis (Chronic) Neurogenic bladder (Chronic) SELF CATH 2-3 X'S PER DAY *RECENT HOSPITALIZATION FOR UTI Raynaud disease (Chronic) Presence of intrathecal pump (Chronic) baclofen pump in place--status post revision/replacement 08/10/2022 S/P IVC filter (Chronic) H/O left mastectomy (Chronic) with lymph node removal>LEFT ARM RESTRICTION History of open reduction and internal fixation (ORIF) procedure (Chronic) "left hip" S/P partial hysterectomy (Chronic) History of appendectomy (Chronic) Medical History Osteoarthritis of right knee Cellulitis of right lower extremity Anemia Cellulitis Acute leg pain Fever History of recent hospitalization 09/2022 [facility] - sepsis History of blood transfusion Limb alert care status left arm Osteoarthritis of right shoulder History of GI bleed Upper GIB (2019) felt 2/2 NSAID use History of non-ST elevation myocardial infarction (NSTEMI) 06/2021 (had heart cath, no stents) Hx of gastric ulcer 02/2021 Anemia Hypertension controlled, stable per pt Surgical History History of removal of Port-a-Cath (02/09/24) Mediport Removal(Right) - Tristin Lazo DO Port-A-Cath in place (09/29/23) A-Port Insertion, right internal jugular(Right) - Tristin Lazo DO S/p reverse total shoulder arthroplasty right: 05/25/22 LMA#4. No postop issues per anesthesia progress note. History of cardiac cath Cardiac cath (07/06/21; [facility]) > Right dominant coronary system. No evidence of aortic stenosis. Normal left ventricular filling pressures. Nonobstructive disease involving the ostial LAD. No evidence of acute coronary syndrome. Approximately 50% ostial stenosis of the LAD. There was some very mild disease at the ostium of the left circumflex. Recommendations: Medical management. History of esophagogastroduodenoscopy (EGD) History of colonoscopy History of tooth extraction Family History Mother Heart disorder Other No family history of adverse response to anesthesia Social History Smoking Status: Former smoker Tobacco Type: Cigarettes packs per day: 1; Cigarettes Per Day: stopped in 1977; Second Hand Exposure: No; Do You Dip or Chew Tobacco: No; Hx Alcohol Use: No Hx Substance Use: No Preferred Language: Greenlandic Communication Ability: Effective Visual Impairment: Limited Hearing Ability: Use of Hearing Aid Wharf Helper Required: No Beliefs That Will Affect Care: None marital status: / Current Living Situation: Alone Current Living Situation Comment: daughters are an hour away but check on her frequently per pt current occupational status: retired How many Children do You have: 3 Feels Safe at Home: Yes Childhood Exposure to Second-Hand Smoke: Yes Diet: regular caffeine: Yes Assistive Devices: Walker and Wheelchair Review of Systems Review of Systems: Per HPI. All other ros are reviewed and are neg or noncontributory Physical Exam Physical Exam: General- adult female seen at bedside in the ED. Nursing is present. She appears chronically ill. Head-she has marked ecchymosis on the right side of her face and periorbital areas. This is from her fall last admission. Eyes- PERRL, EOMI, anicteric, negative hyphema ENT- oropharynx clear Neck- supple, no JVD, no adenopathy, no thyromegaly; carotids +2/2, no bruits appreciated Lungs- clear to auscultation and percussion Heart- regular rhythm; no murmur, no gallop, no rub appreciated Abdomen- normal bowel sounds, soft, nontender, no masses or hepatosplenomegaly Extremities-chronic lymphedema bilaterally, no calf tenderness; she has a small shallow healing ulcer on the right lateral malleolus. There is no drainage and there is no inflammation. Neuro- alert, oriented x 3; PERRL, EOMI; no facial palsy; no dysarthria; she has generalized weakness. Skin- warm & dry Results & Data Results & Data Vital Signs (Past 12 Hours) Vital Signs Temp Pulse Pulse Resp BP BP Pulse Ox 10/14/24 16:27 14 10/14/24 16:21 109 H 10/14/24 16:12 109 H 10/14/24 16:06 109 H 19 10/14/24 15:33 101 H 19 10/14/24 15:31 114/58 L 10/14/24 15:31 114/58 L 10/14/24 15:31 114/58 L 10/14/24 15:30 105 H 19 10/14/24 15:27 103 H 19 10/14/24 15:15 103 H 20 97 10/14/24 15:03 103 H 15 10/14/24 15:02 101/60 10/14/24 15:02 94 H 10/14/24 15:00 78 16 98 10/14/24 14:50 96 H 16 164/92 H 96 10/14/24 14:37 36.6 C 90 18 139/85 98 O2 Del Method 10/14/24 16:27 10/14/24 16:21 10/14/24 16:12 10/14/24 16:06 10/14/24 15:33 10/14/24 15:31 10/14/24 15:31 10/14/24 15:31 10/14/24 15:30 10/14/24 15:27 10/14/24 15:15 10/14/24 15:03 10/14/24 15:02 10/14/24 15:02 10/14/24 15:00 Room Air 10/14/24 14:50 Room Air 10/14/24 14:37 Room Air Diagnostic Findings Laboratory Results WBC 32.74 K/ul (4.8-10.8) H* 10/14/24 15:00 RBC 2.77 M/uL (4.20-5.40) L 10/14/24 15:00 Hgb 7.8 g/dl (12.0-16.0) L 10/14/24 15:00 Hct 25.0 % (37.0-47.0) L 10/14/24 15:00 MCV 90.3 fL (80.0-100.0) 10/14/24 15:00 MCH 28.2 pg (25.0-34.0) 10/14/24 15:00 MCHC 31.2 g/dL (32.0-36.0) L 10/14/24 15:00 RDW Std Deviation 64.1 fL (36.4-46.3) H 10/14/24 15:00 RDW Coeff of Tiffanie 19.9 % (11.5-14.5) H 10/14/24 15:00 Plt Count 332 K/uL (130-400) 10/14/24 15:00 MPV 10.4 fL (9.4-12.4) 10/14/24 15:00 Immature Gran % (Auto) 0.9 % 10/14/24 15:00 Neut % (Auto) 92.2 % 10/14/24 15:00 Lymph % (Auto) 1.0 % 10/14/24 15:00 [place] % (Auto) 5.7 % 10/14/24 15:00 Eos % (Auto) 0.0 % 10/14/24 15:00 Baso % (Auto) 0.2 % 10/14/24 15:00 Neut # (Auto) 30.19 K/uL (1.40-6.50) H 10/14/24 15:00 Lymph # (Auto) 0.32 K/uL (1.20-3.40) L 10/14/24 15:00 [place] # (Auto) 1.87 K/uL (0.11-0.59) H 10/14/24 15:00 Eos # (Auto) 0.00 K/uL (0.00-0.50) 10/14/24 15:00 Baso # (Auto) 0.06 K/uL (0.00-0.20) 10/14/24 15:00 Immature Gran # (Auto) 0.30 K/uL (0.01-0.20) H 10/14/24 15:00 Absolute Nucleated RBC 0.02 K/uL (0.00-0.12) 10/14/24 15:00 Nucleated RBC % (auto) 0.1 % 10/14/24 15:00 Polychromasia 1+ 10/14/24 15:00 PT 11.4 Seconds (9.0-12.0) 10/14/24 15:38 INR 1.1 (0.9-1.1) 10/14/24 15:38 Sodium 137 mmol/L (136-145) 10/14/24 15:00 Potassium 4.7 mmol/L (3.5-5.1) 10/14/24 15:00 Chloride 101 mmol/L (98-107) 10/14/24 15:00 Carbon Dioxide 28 mmol/L (21-32) 10/14/24 15:00 Anion Gap 8 (3-11) 10/14/24 15:00 BUN 29 mg/dl (6-23) H 10/14/24 15:00 Creatinine 0.69 mg/dl (0.6-1.2) 10/14/24 15:00 Est Cr Clr Drug Dosing 79.5 ml/min 10/14/24 15:00 eGFR 92.73 10/14/24 15:00 BUN/Creatinine Ratio 42.0 (10-20) H 10/14/24 15:00 Glucose 115 mg/dl (70-99(Fasting)) H 10/14/24 15:00 Lactate 2.2 mmol/L (0.4-2.0) H* 10/14/24 15:14 Calcium 9.4 mg/dl (8.6-10.3) 10/14/24 15:00 Magnesium 1.5 mg/dl (1.7-2.4) L 10/14/24 15:00 Total Bilirubin 0.4 mg/dl (0.2-1.0) 10/14/24 15:00 AST 32 U/L (13-39) 10/14/24 15:00 ALT 22 U/L (7-52) 10/14/24 15:00 Alkaline Phosphatase 39 U/L (34-104) 10/14/24 15:00 Troponin I High Sens 27.1 pg/ml (0-14) H 10/14/24 15:00 Total Protein 6.0 gm/dl (6.0-8.3) 10/14/24 15:00 Albumin 3.6 gm/dl (3.4-5.0) 10/14/24 15:00 Globulin 2.4 gm/dl (2.5-4.0) L 10/14/24 15:00 Albumin/Globulin Ratio 1.5 (0.9-2) 10/14/24 15:00 Procalcitonin 0.22 ng/ml (0-0.5) 10/14/24 15:00 Adenovirus (PCR) Not Detected (NotDetected) 10/14/24 15:00 B. pertussis DNA (PCR) Not Detected (NotDetected) 10/14/24 15:00 B.parapertussis DNA PCR Not Detected (NotDetected) 10/14/24 15:00 C. pneumoniae DNA (PCR) Not Detected (NotDetected) 10/14/24 15:00 Coronavirus OC43 (PCR) Not Detected (NotDetected) 10/14/24 15:00 Coronavirus HKU1 (PCR) Not Detected (NotDetected) 10/14/24 15:00 Coronavirus 229E (PCR) Not Detected (NotDetected) 10/14/24 15:00 SARS-CoV-2 (PCR) Not Detected (NotDetected) 10/14/24 15:00 Coronavirus NL63 (PCR) Not Detected (NotDetected) 10/14/24 15:00 Human Metapneumovir PCR Not Detected (NotDetected) 10/14/24 15:00 Influenza Type A (PCR) Not Detected (NotDetected) 10/14/24 15:00 Influenza Type B (PCR) Not Detected (NotDetected) 10/14/24 15:00 M. pneumoniae (PCR) Not Detected (NotDetected) 10/14/24 15:00 Parainfluenza 1 (PCR) Not Detected (NotDetected) 10/14/24 15:00 Parainfluenza 2 (PCR) Not Detected (NotDetected) 10/14/24 15:00 Parainfluenza 3 (PCR) Not Detected (NotDetected) 10/14/24 15:00 Parainfluenza 4 (PCR) Not Detected (NotDetected) 10/14/24 15:00 RSV (PCR) Not Detected (NotDetected) 10/14/24 15:00 Entero/Rhino (PCR) Not Detected (NotDetected) 10/14/24 15:00 Impressions Chest X-Ray 10/14/24 14:50 EXAM: Radiograph of the Chest 1 View INDICATION: Dyspnea. TECHNIQUE: Frontal view of the chest. COMPARISON: 10/02/2024 FINDINGS: Lungs and pleural spaces: Stable chronic interstitial changes and hyperinflation. Chronic likely compressive atelectasis in the left base unchanged. Heart: Shape and configuration within normal limits allowing for technique. Mediastinum: Stable moderate to large hiatal hernia. Bones/joints: Degenerative changes noted in the scoliotic spine. No acute osseous abnormality noted. Visualized right shoulder arthroplasty components grossly intact. Degenerative changes noted in the left shoulder. Soft tissues: No abnormality noted. No radiopaque foreign body noted. Upper abdomen: No abnormality noted. IMPRESSION: Stable chronic changes. No acute disease. ACT 112: Negative or not required by law. Electronically signed by Zuly Wade 10-14-2024 3:34 PM
[2024-10-14] MEDS: SODIUM CHLORIDE 0.9% 500 ML IV ONE (17:24)
[2024-10-14 18:36] LABS: Appearance Urine Clear (Clear); Bilirubin Urine Negative (Negative); Blood Urine Negative (Negative); Color Urine Yellow; Glucose Urine UA Negative (Negative); Ketones Urine Negative (Negative); Leukocyte Esterase Urine Negative (Negative); Nitrite Urine Negative (Negative); Protein Urine Negative (Negative); Specific Gravity Urine 1.013 (1.000-1.030); Urobilinogen Urine Negative (Negative)
[2024-10-14] MEDS ORDERED: ALUMINUM/MAGNESIUM SUSP 30 ML UDC PO PRN (21:03)
[2024-10-14] MEDS ORDERED: ONDANSETRON INJ 2 MG/ML 2 ML VIAL IV PRN (21:03)
[2024-10-14] MEDS ORDERED: POLYETHYLENE (MIRALAX) 17 GM PACK PO PRN (21:03)
[2024-10-14] MEDS: ACETAMINOPHEN 325 MG TAB PO PRN (21:13)
[2024-10-14] MEDS ORDERED: BACLOFEN PAIN PUMP IT SCH (21:24)
[2024-10-14] MEDS: APIXABAN 5 MG TABLET PO SCH (21:48)
[2024-10-14] MEDS: METOPROLOL SUCC 25MG EXT REL TAB PO SCH (21:48)
[2024-10-14] MEDS: MELATONIN 3 MG TAB PO SCH (21:48)
[2024-10-14] MEDS: tiZANidine HCL 4 MG TABLET PO SCH (21:48)
[2024-10-14 22:18] LABS: BUN Creatinine Ratio 33.8 (10-20); Calcium 8.8 mg/dl (8.6-10.3); Creatinine Clr Calc Pharmacy 71.5 ml/min; Potassium 4.2 mmol/L (3.5-5.1)
[2024-10-14] MEDS: CEFEPIME 2000MG 2,000 MG/20 ML SYR IV SCH (23:46)
--- NOTE | 2024-10-14 23:47 | Communication Note ---
Date of Service: October 14, 2024 Overnight issues 10/14, 1145P Made aware by RN of SBP 80s Patient more drowsy as per RN. Patient febrile despite ongoing cefepime Rx RLE red as per RN. AP Hypotension Severe sepsis Recurrent RLE cellulitis as source History Enterococcus on prior CS Lethargy secondary to above RTC tizanidine contributory IVF Decadron 1 dose for possible adrenal insufficiency, history chronic steroid Rx Add daptomycin to cefepime Hold RTC tizanidine for now 10/15, 645A Notified by RN of a.m. hemoglobin of 6.9. No overt bleeding. Patient denies headache, abdominal pain, GI bleed FOBT done at bedside was negative. AP Progressive anemia Likely dilutional Transfuse PRBC to maintain hemoglobin of at least 8, history of CAD
[2024-10-15] MEDS: SODIUM CHLORIDE 0.9% 1,000 ML IV ONE (00:14)
[2024-10-15] MEDS: dexAMETHasone 4 MG in SYRINGE 0 ML IV ONE (00:20)
[2024-10-15] MEDS: DAPTOmycin 225 MG in SYRINGE 0 ML IV SCH (03:27)
[2024-10-15 06:28] LABS: BUN Creatinine Ratio 26.3 (10-20); Calcium 8.7 mg/dl (8.6-10.3); Creatinine Clr Calc Pharmacy 60.7 ml/min; Magnesium 1.8 mg/dl (1.7-2.4); Potassium 4.4 mmol/L (3.5-5.1)
[2024-10-15 06:44] LABS: Toxic Vacuolation 1+
[2024-10-15 06:46] LABS: Hemoglobin 6.9 g/dl (12.0-16.0); Mean Corpuscular Hemoglobin 27.6 pg (25.0-34.0); Mean Corpuscular Hgb Conc 31.4 g/dL (32.0-36.0); Mean Platelet Volume 10.3 fL (9.4-12.4); Nucleated RBC # (auto) 0.02 K/uL (0.00-0.12); Nucleated RBC % (auto) 0.1 %; Platelet Count 277 K/uL (130-400); RDW Coefficient of Variation 19.5 % (11.5-14.5); RDW Standard Deviation 62.5 fL (36.4-46.3); White Blood Count 17.92 K/ul (4.8-10.8)
[2024-10-15] MEDS ORDERED: SODIUM CHLORIDE 0.9% 100 ML IV PRN (07:08)
[2024-10-15] MEDS ORDERED: SODIUM CHLORIDE 0.9% 50 ML IV PRN (07:08)
[2024-10-15] MEDS: DOXYCYCLINE HYCLATE 50 MG CAP PO SCH (08:12)
[2024-10-15] MEDS: DULoxetine HCL 30 MG CAP PO SCH (08:12)
[2024-10-15] MEDS: ESCITALOPRAM OXALATE 20 MG TAB PO SCH (08:13)
[2024-10-15] MEDS: MULTIVITAMIN TAB PO SCH (08:13)
[2024-10-15] MEDS: PANTOprazole 40 MG TAB PO SCH (08:13)
[2024-10-15] MEDS: CHOLECALCIFEROL 25 MCG (1000 UNITS) TAB PO SCH (08:14)
[2024-10-15] MEDS: OXYBUTYNIN CHLORIDE XL 5 MG TABCR PO SCH (08:14)
[2024-10-15] MEDS: predniSONE 10 MG TABLET PO SCH (08:14)
[2024-10-15] MEDS ORDERED: ATORVASTATIN 40 MG TAB PO SCH (09:00)
[2024-10-15 13:09] LABS: Hematocrit (blood only) 27.3 % (37.0-47.0); Hemoglobin 8.9 g/dl (12.0-16.0)
--- NOTE | 2024-10-15 16:26 | Hospitalist Progress Note ---
Date of Service October 15, 2024 Assessment & Plan (1) Sepsis: (2) Elevated lactic acid level: (3) Hypomagnesemia: (4) Leukocytosis: (5) Complicated UTI (urinary tract infection): (6) Multiple sclerosis: (7) Presence of intrathecal pump: (8) Immunocompromised due to corticosteroids: Plan Kandy Shelby is a 73y/o F with PMHx significant for CAD, HTN, HLD, PAF, PSVT, nonrheumatic aortic valve stenosis, Raynaud's syndrome, history ESBL E. coli UTI, prior DVT with pulmonary emboli s/p IVC filter placement [on Eliquis], GERD with esophagitis, protein-calorie malnutrition, neurogenic bladder, multiple sclerosis [on chronic prednisone + Aubagio-], polyneuropathy with chronic pain on Baclofen pump, tobacco use, anemia of chronic disease [baseline Hgb ~9-10], depression with anxiety, sicca syndrome, history of nonmelanoma skin cancer s/p Mohs operation, left breast cancer s/p radiation + surgery, rosacea [on doxycycline], right foot drop, bilateral lower extremity venous stasis, chronic osteomyelitis of the right fibula, chronic right lateral ankle wound and recur rent right lower extremity cellulitis and recent admit for complicated UTI and sepsis who presented to the ED with significant chills throughout the day. Severe Sepsis Septic Shock Lower Extremity cellulitis Lower extremity swelling patient presenting with subjective fevers, noted to be febrile here with also noted leukocytosis blood pressures overnight trending down lactate elevated and down trended after fluid resuscitation Respiratory panel negative Chest x-ray unremarkable UA this admission unremarkable Blood cultures 2 sets with no growth to date MRI of the bilateral lower extremities (legs and feet) pending to rule out acute osteomyelitis given patient's chronic history and recurrence with cellulitis Bilateral venous Doppler lower ordered and pending, rule out DVT continue with IV cefepime and daptomycin, follow cultures Given patient's history consider infectious disease consult blood pressures have improved-will continue with home metoprolol at this time as well as home steroids Continue to monitor Acute on chronic anemia Hemoglobin 7.8 on arrival and down trended to 6.9 Status post transfusion of 1 unit of packed RBCs with noted hemoglobin of 8.9 afterwards Suspect dilutional A.m. anemia panel ordered and pending continue to monitor and transfuse as needed for hgb <8 Holding home Eliquis Resume as able hypomagnesemia Replete as needed Continue other home meds as ordered CODE STATUS: full code Diet: HH VTE prophylaxis: Patient is on chronic apixaban, currently on hold in setting of need for blood transfusion. SCDs Dispo: PT/OT once more medically stable Admission and Anticipated Discharge Date Admission Date: October 14, 2024 Subjective Kandy was seen in the a.m. stated at that time that she had been falling at home and was the cause of her facial bruising. States "it looks worse than it is" Denying any fevers chills or night sweats at the time of exam Notes that she has chronic lower extremity erythema and swelling but is very concerned that she "does not lose her legs Review of Systems Review of Systems: All systems reviewed & are unremarkable except as noted in Subjective Physical Exam Physical Exam: General: Alert, oriented. No acute distress Skin: erythema to feet and lower extremities bilaterally. bruising noted on face Psych: Appropriate mood and affect HEENT: NC/AT CV: RRR, +murmur Resp: Breath sounds clear bilaterally, no increased effort of breathing Abdomen:Soft, nontender Extremities: edema in lower extremities bilaterally as well as erythema and warmth. Results & Data Results & Data Vital Signs (Past 12 Hours) Vital Signs Temp Pulse Pulse Resp BP BP Pulse Ox 10/15/24 15:28 36.9 C 81 18 135/60 94 10/15/24 13:38 94 H 10/15/24 11:39 36.8 C 90 16 130/78 94 10/15/24 10:58 36.8 C 79 19 112/85 98 10/15/24 09:58 36.6 C 100 H 18 118/79 96 10/15/24 08:58 36.6 C 98 H 18 111/77 97 10/15/24 08:28 36.6 C 104 H 16 108/70 98 10/15/24 08:13 36.7 C 101 H 18 122/77 97 10/15/24 07:50 36.7 C 107 H 18 127/84 96 O2 Del Method 10/15/24 15:28 Room Air 10/15/24 13:38 10/15/24 11:39 10/15/24 10:58 10/15/24 09:58 10/15/24 08:58 10/15/24 08:28 10/15/24 08:13 10/15/24 07:50 Diagnostic Findings Chest X-Ray 10/14/24 14:50 EXAM: Radiograph of the Chest 1 View INDICATION: Dyspnea. TECHNIQUE: Frontal view of the chest. COMPARISON: 10/02/2024 FINDINGS: Lungs and pleural spaces: Stable chronic interstitial changes and hyperinflation. Chronic likely compressive atelectasis in the left base unchanged. Heart: Shape and configuration within normal limits allowing for technique. Mediastinum: Stable moderate to large hiatal hernia. Bones/joints: Degenerative changes noted in the scoliotic spine. No acute osseous abnormality noted. Visualized right shoulder arthroplasty components grossly intact. Degenerative changes noted in the left shoulder. Soft tissues: No abnormality noted. No radiopaque foreign body noted. Upper abdomen: No abnormality noted. IMPRESSION: Stable chronic changes. No acute disease. ACT 112: Negative or not required by law. Electronically signed by Zuly Wade 10-14-2024 3:34 PM
[2024-10-15] MEDS: FUROSEMIDE INJ 20 MG/2 ML VIAL IV ONE (18:46)
--- NOTE | 2024-10-15 18:57 | XRay Report ---
EXAM: Radiograph of the Abdomen 1 View INDICATION: MRI clearance TECHNIQUE: Frontal supine view of the abdomen/pelvis. COMPARISON: 09/14/2024 FINDINGS: Limitations: None. Lower thorax: There is mottled gas projecting in the pelvis which may be emphysematous cystitis. There is a small left retrocardiac left basilar infiltrate. Question trace left pleural effusion. Gastrointestinal tract: Air scattered throughout non-dilated intestinal loops. Organs: Visualized organ shadows appear grossly normal. Bones/joints: No interval change in intrathecal catheter entering the canal at the level of L4. The proximal tip appears to be at T11. Stable position of subcutaneous left lower quadrant generator. Inferior vena cava filter unchanged L2-L3. Visualized portion of left hip arthroplasty well-seated and intact with grossly stable surrounding heterotopic bone formation. Stable old right pubic rami fractures. Scoliotic spine with degenerative change.. IMPRESSION: 1. There is mottled gas projecting in the pelvis which may be emphysematous cystitis. 2. Intrathecal catheter with left subcutaneous lower quadrant pump, left hip arthroplasty and inferior vena cava filter present. 3. Left basilar atelectasis or pneumonia possible trace left pleural effusion. ACT 112: Negative or not required by law. Electronically signed by Zuly Wade 10-15-2024 6:56 PM
--- NOTE | 2024-10-15 21:13 | Ultrasound Report ---
Exam(s): US VENOUS BILATERAL LOWER EXTREMITIES EXAM: US Duplex Bilateral Lower Extremities Veins CLINICAL HISTORY: Reason for exam: r/o DVT. TECHNIQUE: Real-time duplex ultrasound scan of the bilateral lower extremity veins integrating B-mode two-dimensional vascular structure, Doppler spectral analysis, color flow Doppler imaging and compression. COMPARISON: No relevant prior studies available. FINDINGS: Right deep veins: Unremarkable. No DVT in the right common femoral, femoral, proximal deep femoral or popliteal veins. The veins demonstrate normal color flow, are normally compressible, with normal phasic flow and/or augmentation response. Right superficial veins: Unremarkable. No thrombus in the visualized right great saphenous vein. Left deep veins: Unremarkable. No DVT in the left common femoral, femoral, proximal deep femoral or popliteal veins. The veins demonstrate normal color flow, are normally compressible, with normal phasic flow and/or augmentation response. Left superficial veins: Unremarkable. No thrombus in the visualized left great saphenous vein. Soft tissues: No acute findings. No popliteal cyst. IMPRESSION: Negative bilateral lower extremity duplex venous ultrasound. No evidence of DVT. Electronically signed by: Haider Morales MD 10/15/24 21:12 PM
--- NOTE | 2024-10-15 22:03 | Electrocardiogram Report ---
Test Reason : Blood Pressure : */* mmHG Vent. Rate : 95 BPM Atrial Rate : 95 BPM P-R Int : 144 ms QRS Dur : 66 ms QT Int : 332 ms P-R-T Axes : 36 10 56 degrees QTcB Int : 417 ms Normal sinus rhythm Septal infarct (cited on or before 10-Feb-2024) Abnormal ECG When compared with ECG of 06-Oct-2024 11:15, No significant change was found Confirmed by Navin Alejandra ([id number]) on 10/15/2024 10:02:48 PM Referred By: REFERRED SELF Confirmed By: Navin Alejandra
[2024-10-16] MEDS: GADOBUTROL 65ML VIAL IV ONE (00:32)
[2024-10-16] MEDS: MELATONIN 3 MG TAB PO STA (02:24)
--- NOTE | 2024-10-16 02:33 | Magnetic Resonance Report ---
EXAM: MR lower leg RT wo/w con CLINICAL HISTORY: redness and swelling for months to both lower legs and feet, no recent injury, had an old injury to RT ankle where it was cut and got infected about one year ago, no complaints in LT leg, placed an oil marker on RT lower leg injected 6.5cc gadavist through existing iv rt arm uneventful at 0025 on 10/16. room 206-1 mri right lower leg 09/14/24 TECHNIQUE: Multiplanar, multisequence MR imaging of the right leg was performed with and without contrast. COMPARISON: Prior MRI dated September 14, 2024. FINDINGS: The visualized tendons appear normal. No ligamentous abnormality is appreciated. Normal muscle groups of the visualized extremity without edema or atrophy. The bone marrow signal is normal on all sequences, with no evidence of fracture, contusion or AVN. No cortical destruction to suggest osteomyelitis. No abscess formation. No significant joint effusion. There is subcutaneous edema in the lower leg, predominantly involving the posterior aspect. No evidence of deep collection. No abnormality identified at the site of the pain marker. No soft tissue masses. These findings are unchanged compared to the prior examination. IMPRESSION: 1. Subcutaneous soft tissue edema in the posterior aspect of lower leg, unchanged from prior study; recommend clinical correlation for possible cellulitis. 2. No evidence of osteomyelitis or deep fluid collection. 3. No abnormality at site of pain marker. Electronically signed by Vicente John 10-16-2024 02:33 AM
--- NOTE | 2024-10-16 02:37 | Magnetic Resonance Report ---
EXAM: MR lower leg LT wo/w con CLINICAL HISTORY: redness and swelling for months to both lower legs and feet, no recent injury, had an old injury to RT ankle where it was cut and got infected about one year ago, no complaints in LT leg, placed an oil marker on RT lower leg injected 6.5cc gadavist through existing iv rt arm uneventful at 0025 on 10/16. room 206-1 TECHNIQUE: Multiplanar, multisequence MR imaging of the left leg was performed with and without contrast. COMPARISON: prior scan dated January,. FINDINGS: The visualized tendons appear normal. No ligamentous abnormality is appreciated. Normal muscle groups of the visualized extremity without edema or atrophy. The bone marrow signal is normal on all sequences, with no evidence of fracture, contusion or AVN. No cortical destruction to suggest osteomyelitis. No abscess formation. No significant joint effusion. There is diffuse subcutaneous edema throughout the visualized soft tissues of the left leg. No evidence of deep collection or abscess formation. No soft tissue masses identified. IMPRESSION: 1. Diffuse subcutaneous soft tissue edema; recommend clinical correlation for possible cellulitis. 2. No evidence of osteomyelitis or deep fluid collection. 3. No interval change compared to the prior scan. Electronically signed by Vicente Jhon 10-16-2024 02:36 AM
--- NOTE | 2024-10-16 02:42 | Magnetic Resonance Report ---
EXAM: MR foot LT wo/w con CLINICAL HISTORY: redness and swelling for months to both lower legs and feet, no recent injury, had an old injury to RT ankle where it was cut and got infected about one year ago, no complaints in LT leg, placed an oil marker on RT lower leg injected 6.5cc gadavist through existing iv rt arm uneventful at 0025 on 10/16. room 206-1 TECHNIQUE: Multiplanar, multisequence MR imaging of the left foot was performed without and with gadolinium. COMPARISON: None. FINDINGS: Subcutaneous soft tissue thickening, edema, fat stranding and fluid collection is seen, predominantly involving the dorsal aspect of the foot, s/o cellulitis. Edema is seen involving the muscles along the plantar aspect of the foot, with minimal fluid in the intermuscular planes. Bone marrow signal is within normal limits without bone contusion, fracture or AVN. The visualized flexor and extensor tendons are intact. The Lisfranc ligament is intact. The plantar fascia is intact with no evidence of plantar plate injury. There is no evidence of Queen's neuroma. No intermetatarsal bursitis is identified. IMPRESSION: 1. Subcutaneous soft tissue thickening, edema, fat stranding and fluid collection is seen, predominantly involving the dorsal aspect of the foot, s/o cellulitis. 2. Edema is seen involving the muscles along the plantar aspect of the foot, with minimal fluid in the intermuscular planes. Electronically signed by Vicente John 10-16-2024 02:41 AM
--- NOTE | 2024-10-16 02:46 | Magnetic Resonance Report ---
EXAM: MR foot RT wo/w con CLINICAL HISTORY: redness and swelling for months to both lower legs and feet, no recent injury, had an old injury to RT ankle where it was cut and got infected about one year ago, no complaints in LT leg, placed an oil marker on RT lower leg injected 6.5cc gadavist through existing iv rt arm uneventful at 0025 on 10/16. room 206-1 mri right foot 09/14/24 TECHNIQUE: Multiplanar, multisequence MR imaging of the right foot was performed without and with gadolinium. COMPARISON: MRI dated September 14, 2024. FINDINGS: Subcutaneous tissue edema is noted at the lateral aspect of dorsum of foot with associated overlying skin bulge. Mild joint effusion is seen at the first metatarsophalangeal joint, with minimal fluid at second and third metatarsophalangeal joints. Mild fluid collection is noted along the 1st, 2nd, and 3rd metatarsal space at the level of metatarsal heads. A small, ill-defined focus measuring 5 x 6 mm demonstrating T1 hypointensity and STIR hyperintensity with heterogeneous post-contrast enhancement is identified at the distal phalangeal tuft of the great toe, unchanged from prior study. No deep-seated intramuscular collection is identified. The remaining bone marrow signal is within normal limits without evidence of other bone contusion, fracture or AVN. The visualized flexor and extensor tendons are intact. The Lisfranc ligament is intact. The plantar fascia is intact with no evidence of plantar plate injury. No evidence of Queen's neuroma or intermetatarsal bursitis is identified. The muscle groups of the foot are within normal limits without atrophy or edema. IMPRESSION: 1. Focal signal abnormality with enhancement in the distal phalangeal tuft of the great toe, suspicious for osteomyelitis, unchanged from prior study. Clinical correlation for localized tenderness is recommended. 2. Mild soft tissue edema and joint effusions as detailed above, unchanged. Electronically signed by Vicente John 10-16-2024 02:45 AM
[2024-10-16] MEDS ORDERED: Nursing to Pharmacy Communication SCH (03:00)
[2024-10-16 06:21] LABS: Basophils # (auto) 0.04 K/uL (0.00-0.20); Basophils % (auto) 0.4 %; Eosinophils # (auto) 0.03 K/uL (0.00-0.50); Eosinophils % (auto) 0.3 %; Hematocrit (blood only) 25.4 % (37.0-47.0); Hemoglobin 8.2 g/dl (12.0-16.0); Immature Granulocytes # (auto) 0.03 K/uL (0.01-0.20); Immature Granulocytes % (auto) 0.3 %; Lymphocytes # (auto) 0.93 K/uL (1.20-3.40); Mean Corpuscular Hemoglobin 28.2 pg (25.0-34.0); Mean Corpuscular Hgb Conc 32.3 g/dL (32.0-36.0); Mean Corpuscular Volume 87.3 fL (80.0-100.0); Mean Platelet Volume 10.3 fL (9.4-12.4); Monocytes # (auto) 1.01 K/uL (0.11-0.59); Monocytes % (auto) 10.9 %; Neutrophils # (auto) 7.25 K/uL (1.40-6.50); Neutrophils % (auto) 78.1 %; Platelet Count 253 K/uL (130-400); RDW Coefficient of Variation 18.9 % (11.5-14.5); RDW Standard Deviation 59.6 fL (36.4-46.3); Red Blood Count 2.91 M/uL (4.20-5.40); White Blood Count 9.29 K/ul (4.8-10.8)
[2024-10-16 06:28] LABS: Calcium 8.7 mg/dl (8.6-10.3); Magnesium 1.8 mg/dl (1.7-2.4); Potassium 3.8 mmol/L (3.5-5.1)
[2024-10-16 06:34] LABS: BUN Creatinine Ratio 27.1 (10-20); Creatinine Clr Calc Pharmacy 63.7 ml/min; Phosphorus 3.1 mg/dl (2.5-4.9)
[2024-10-16 06:51] LABS: Ferritin 97.7 ng/ml (8-388)
[2024-10-16 07:07] LABS: Vitamin B12 453 pg/ml (180-914)
[2024-10-16 07:08] LABS: Folate (Folic Acid),Ser orPlas > 22.30 ng/ml (>5.38)
[2024-10-16 08:43] LABS: Troponin I High Sensitivity 32.9 pg/ml (0-14)
[2024-10-16] MEDS: IRON SUCROSE 200 MG in SODIUM CHLORIDE 0.9% 100 ML IV SCH (09:39)
--- NOTE | 2024-10-16 12:20 | Hospitalist Progress Note ---
Date of Service October 16, 2024 Assessment & Plan (1) Sepsis: (2) Elevated lactic acid level: (3) Hypomagnesemia: (4) Leukocytosis: (5) Complicated UTI (urinary tract infection): (6) Multiple sclerosis: (7) Presence of intrathecal pump: (8) Immunocompromised due to corticosteroids: Plan Kandy Shelby is a 73y/o F with PMHx significant for CAD, HTN, HLD, PAF, PSVT, nonrheumatic aortic valve stenosis, Raynaud's syndrome, history ESBL E. coli UTI, prior DVT with pulmonary emboli s/p IVC filter placement [on Eliquis], GERD with esophagitis, protein-calorie malnutrition, neurogenic bladder, multiple sclerosis [on chronic prednisone + Aubagio-], polyneuropathy with chronic pain on Baclofen pump, tobacco use, anemia of chronic disease [baseline Hgb ~9-10], depression with anxiety, sicca syndrome, history of nonmelanoma skin cancer s/p Mohs operation, left breast cancer s/p radiation + surgery, rosacea [on doxycycline], right foot drop, bilateral lower extremity venous stasis, chronic osteomyelitis of the right fibula, chronic right lateral ankle wound and recur rent right lower extremity cellulitis and recent admit for complicated UTI and sepsis who presented to the ED with significant chills throughout the day. Severe Sepsis Septic Shock Lower Extremity cellulitis Lower extremity swelling patient presenting with subjective fevers, noted to be febrile here with also noted leukocytosis blood pressures overnight trending down lactate elevated and down trended after fluid resuscitation Respiratory panel negative Chest x-ray unremarkable UA this admission unremarkable Blood cultures 2 sets with no growth to date MRI of the bilateral lower extremities (legs and feet) notable for cellulitis, concern for chronic osteomyelitis in right great toe, unchanged. Notes lots of edema. Bilateral venous Doppler of lower extremities with no noted DVT continue with IV cefepime and daptomycin, follow cultures Given patient's history consider infectious disease consult Podiatry consulted for R great toe findings, appreciate recs blood pressures have improved-will continue with home metoprolol at this time as well as home steroids Continue to monitor 10/16/2024- septic shock resolved, wbc normal. BP sustaining, started on IV Lasix 20mg daily to help with lower extremity swelling. Acute on chronic anemia Iron Deficiency anemia Hemoglobin 7.8 on arrival and down trended to 6.9 Status post transfusion of 1 unit of packed RBCs with noted hemoglobin of 8.9 afterwards Suspect dilutional component as well A.m. anemia panel noting low iron levels, s/p IV venofer 200mg on 10/16/24 Started on po ferrous sulfate continue to monitor and transfuse as needed for hgb <8 Holding home Eliquis at this time, consider resuming in the AM if Hgb remains above 8 Resume as able Possible Emphysematous Cystitis Pt with recent admission for urosepsis on 10/01 UA from 10/01 grew pseudomonas which was treated Repeat UA this admission with no concern for infection KUB ordered for MRI to be completed, noting possible emphysematous cystitis recommending clinical correlation Consider CT abd/pelvis Pt currently without urinary symptoms Also on Cefepime in regimen noted above for cellulitis Continue to monitor symptoms hypomagnesemia Replete as needed Continue other home meds as ordered CODE STATUS: full code Diet: HH VTE prophylaxis: Patient is on chronic apixaban, currently on hold in setting of need for blood transfusion. SCDs Dispo: PT/OT once more medically stable Admission and Anticipated Discharge Date Admission Date: October 14, 2024 Subjective Patient was seen in the a.m. 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 No acute distress Skin: erythema to feet and lower extremities bilaterally. bruising noted on face Psych: Appropriate mood and affect HEENT: NC/AT CV: RRR, +murmur Resp: Breath sounds clear bilaterally, no increased effort of breathing Abdomen:Soft, nontender Extremities: edema in lower extremities bilaterally as well as erythema and warmth. Results & Data Results & Data Vital Signs (Past 12 Hours) Vital Signs Temp Pulse Pulse Resp BP Pulse Ox O2 Del Method 10/16/24 12:12 36.7 C 93 H 18 112/73 95 Room Air 10/16/24 09:44 79 10/16/24 08:38 36.9 C 91 H 18 164/84 H 97 Room Air 10/16/24 02:34 36.7 C 82 20 145/87 H 95 Room Air 10/16/24 01:55 86 10/16/24 01:51 142/104 H 10/16/24 01:39 36.5 C 80 18 178/105 H 96 Room Air Diagnostic Findings Chest X-Ray 10/14/24 14:50 EXAM: Radiograph of the Chest 1 View INDICATION: Dyspnea. TECHNIQUE: Frontal view of the chest. COMPARISON: 10/02/2024 FINDINGS: Lungs and pleural spaces: Stable chronic interstitial changes and hyperinflation. Chronic likely compressive atelectasis in the left base unchanged. Heart: Shape and configuration within normal limits allowing for technique. Mediastinum: Stable moderate to large hiatal hernia. Bones/joints: Degenerative changes noted in the scoliotic spine. No acute osseous abnormality noted. Visualized right shoulder arthroplasty components grossly intact. Degenerative changes noted in the left shoulder. Soft tissues: No abnormality noted. No radiopaque foreign body noted. Upper abdomen: No abnormality noted. IMPRESSION: Stable chronic changes. No acute disease. ACT 112: Negative or not required by law. Electronically signed by Zuly Wade 10-14-2024 3:34 PM Foot MRI 10/15/24 17:32 EXAM: MR foot LT wo/w con CLINICAL HISTORY: redness and swelling for months to both lower legs and feet, no recent injury, had an old injury to RT ankle where it was cut and got infected about one year ago, no complaints in LT leg, placed an oil marker on RT lower leg injected 6.5cc gadavist through existing iv rt arm uneventful at 0025 on 10/16. room 206-1 TECHNIQUE: Multiplanar, multisequence MR imaging of the left foot was performed without and with gadolinium. COMPARISON: None. FINDINGS: Subcutaneous soft tissue thickening, edema, fat stranding and fluid collection is seen, predominantly involving the dorsal aspect of the foot, s/o cellulitis. Edema is seen involving the muscles along the plantar aspect of the foot, with minimal fluid in the intermuscular planes. Bone marrow signal is within normal limits without bone contusion, fracture or AVN. The visualized flexor and extensor tendons are intact. The Lisfranc ligament is intact. The plantar fascia is intact with no evidence of plantar plate injury. There is no evidence of Queen's neuroma. No intermetatarsal bursitis is identified. IMPRESSION: 1. Subcutaneous soft tissue thickening, edema, fat stranding and fluid collection is seen, predominantly involving the dorsal aspect of the foot, s/o cellulitis. 2. Edema is seen involving the muscles along the plantar aspect of the foot, with minimal fluid in the intermuscular planes. Electronically signed by Vicente John 10-16-2024 02:41 AM Foot MRI 10/15/24 17:32 EXAM: MR foot RT wo/w con CLINICAL HISTORY: redness and swelling for months to both lower legs and feet, no recent injury, had an old injury to RT ankle where it was cut and got infected about one year ago, no complaints in LT leg, placed an oil marker on RT lower leg injected 6.5cc gadavist through existing iv rt arm uneventful at 0025 on 10/16. room 206-1 mri right foot 09/14/24 TECHNIQUE: Multiplanar, multisequence MR imaging of the right foot was performed without and with gadolinium. COMPARISON: MRI dated September 14, 2024. FINDINGS: Subcutaneous tissue edema is noted at the lateral aspect of dorsum of foot with associated overlying skin bulge. Mild joint effusion is seen at the first metatarsophalangeal joint, with minimal fluid at second and third metatarsophalangeal joints. Mild fluid collection is noted along the 1st, 2nd, and 3rd metatarsal space at the level of metatarsal heads. A small, ill-defined focus measuring 5 x 6 mm demonstrating T1 hypointensity and STIR hyperintensity with heterogeneous post-contrast enhancement is identified at the distal phalangeal tuft of the great toe, unchanged from prior study. No deep-seated intramuscular collection is identified. The remaining bone marrow signal is within normal limits without evidence of other bone contusion, fracture or AVN. The visualized flexor and extensor tendons are intact. The Lisfranc ligament is intact. The plantar fascia is intact with no evidence of plantar plate injury. No evidence of Queen's neuroma or intermetatarsal bursitis is identified. The muscle groups of the foot are within normal limits without atrophy or edema. IMPRESSION: 1. Focal signal abnormality with enhancement in the distal phalangeal tuft of the great toe, suspicious for osteomyelitis, unchanged from prior study. Clinical correlation for localized tenderness is recommended. 2. Mild soft tissue edema and joint effusions as detailed above, unchanged. Electronically signed by Vicente John 10-16-2024 02:45 AM Lower Extremity MRI 10/15/24 17:32 EXAM: MR lower leg RT wo/w con CLINICAL HISTORY: redness and swelling for months to both lower legs and feet, no recent injury, had an old injury to RT ankle where it was cut and got infected about one year ago, no complaints in LT leg, placed an oil marker on RT lower leg injected 6.5cc gadavist through existing iv rt arm uneventful at 0025 on 10/16. room [facility]-1 mri right lower leg 09/14/24 TECHNIQUE: Multiplanar, multisequence MR imaging of the right leg was performed with and without contrast. COMPARISON: Prior MRI dated September 14, 2024. FINDINGS: The visualized tendons appear normal. No ligamentous abnormality is appreciated. Normal muscle groups of the visualized extremity without edema or atrophy. The bone marrow signal is normal on all sequences, with no evidence of fracture, contusion or AVN. No cortical destruction to suggest osteomyelitis. No abscess formation. No significant joint effusion. There is subcutaneous edema in the lower leg, predominantly involving the posterior aspect. No evidence of deep collection. No abnormality identified at the site of the pain marker. No soft tissue masses. These findings are unchanged compared to the prior examination. IMPRESSION: 1. Subcutaneous soft tissue edema in the posterior aspect of lower leg, unchanged from prior study; recommend clinical correlation for possible cellulitis. 2. No evidence of osteomyelitis or deep fluid collection. 3. No abnormality at site of pain marker. Electronically signed by Vicente John 10-16-2024 02:33 AM Lower Extremity MRI 10/15/24 17:32 EXAM: MR lower leg LT wo/w con CLINICAL HISTORY: redness and swelling for months to both lower legs and feet, no recent injury, had an old injury to RT ankle where it was cut and got infected about one year ago, no complaints in LT leg, placed an oil marker on RT lower leg injected 6.5cc gadavist through existing iv rt arm uneventful at 0025 on 10/16. room 206- TECHNIQUE: Multiplanar, multisequence MR imaging of the left leg was performed with and without contrast. COMPARISON: prior scan dated January,. FINDINGS: The visualized tendons appear normal. No ligamentous abnormality is appreciated. Normal muscle groups of the visualized extremity without edema or atrophy. The bone marrow signal is normal on all sequences, with no evidence of fracture, contusion or AVN. No cortical destruction to suggest osteomyelitis. No abscess formation. No significant joint effusion. There is diffuse subcutaneous edema throughout the visualized soft tissues of the left leg. No evidence of deep collection or abscess formation. No soft tissue masses identified. IMPRESSION: 1. Diffuse subcutaneous soft tissue edema; recommend clinical correlation for possible cellulitis. 2. No evidence of osteomyelitis or deep fluid collection. 3. No interval change compared to the prior scan. Electronically signed by Vicente John 10-16-2024 02:36 AM Venous Doppler Study 10/15/24 17:45 Exam(s): US VENOUS BILATERAL LOWER EXTREMITIES EXAM: US Duplex Bilateral Lower Extremities Veins CLINICAL HISTORY: Reason for exam: r/o DVT. TECHNIQUE: Real-time duplex ultrasound scan of the bilateral lower extremity veins integrating B-mode two-dimensional vascular structure, Doppler spectral analysis, color flow Doppler imaging and compression. COMPARISON: No relevant prior studies available. FINDINGS: Right deep veins: Unremarkable. No DVT in the right common femoral, femoral, proximal deep femoral or popliteal veins. The veins demonstrate normal color flow, are normally compressible, with normal phasic flow and/or augmentation response. Right superficial veins: Unremarkable. No thrombus in the visualized right great saphenous vein. Left deep veins: Unremarkable. No DVT in the left common femoral, femoral, proximal deep femoral or popliteal veins. The veins demonstrate normal color flow, are normally compressible, with normal phasic flow and/or augmentation response. Left superficial veins: Unremarkable. No thrombus in the visualized left great saphenous vein. Soft tissues: No acute findings. No popliteal cyst. IMPRESSION: Negative bilateral lower extremity duplex venous ultrasound. No evidence of DVT. Electronically signed by: Haider Morales MD 10/15/24 21:12 PM KUB X-Ray 10/15/24 18:01 EXAM: Radiograph of the Abdomen 1 View INDICATION: MRI clearance TECHNIQUE: Frontal supine view of the abdomen/pelvis. COMPARISON: 09/14/2024 FINDINGS: Limitations: None. Lower thorax: There is mottled gas projecting in the pelvis which may be emphysematous cystitis. There is a small left retrocardiac left basilar infiltrate. Question trace left pleural effusion. Gastrointestinal tract: Air scattered throughout non-dilated intestinal loops. Organs: Visualized organ shadows appear grossly normal. Bones/joints: No interval change in intrathecal catheter entering the canal at the level of L4. The proximal tip appears to be at T11. Stable position of subcutaneous left lower quadrant generator. Inferior vena cava filter unchanged L2-L3. Visualized portion of left hip arthroplasty well-seated and intact with grossly stable surrounding heterotopic bone formation. Stable old right pubic rami fractures. Scoliotic spine with degenerative change.. IMPRESSION: 1. There is mottled gas projecting in the pelvis which may be emphysematous cystitis. 2. Intrathecal catheter with left subcutaneous lower quadrant pump, left hip arthroplasty and inferior vena cava filter present. 3. Left basilar atelectasis or pneumonia possible trace left pleural effusion. ACT 112: Negative or not required by law. Electronically signed by Zuly Wade 10-15-2024 6:56 PM
[2024-10-16] MEDS: FUROSEMIDE INJ 20 MG/2 ML VIAL IV SCH (14:41)
--- NOTE | 2024-10-16 18:13 | Electrocardiogram Report ---
Test Reason : Blood Pressure : */* mmHG Vent. Rate : 98 BPM Atrial Rate : 98 BPM P-R Int : 154 ms QRS Dur : 70 ms QT Int : 334 ms P-R-T Axes : 42 -2 53 degrees QTcB Int : 426 ms Normal sinus rhythm Septal infarct (cited on or before 10-Feb-2024) Abnormal ECG When compared with ECG of 14-Oct-2024 14:48, No significant change was found Confirmed by Navin Alejandra ([id number]) on 10/16/2024 6:12:49 PM Referred By: REFERRED SELF Confirmed By: Navin Alejandra
--- NOTE | 2024-10-16 21:12 | Podiatry Consultation ---
Date of Consultation October 16, 2024 Assessment & Plan (1) Sepsis: (2) Lower extremity cellulitis: Laterality: right Qualified Code(s): L03.115 - Cellulitis of right lower limb (3) Wound infection: (4) Chronic refractory osteomyelitis of ankle: Laterality: right Qualified Code(s): M86.671 - Other chronic osteomyelitis, right ankle and foot Plan Patient was examined and evaluated. Right ankle wound was cleaned and redressed with an adhesive bandage. Wound swab cultures were obtained at bedside. This wound does appear stable without any active purulent drainage or obvious infection. It is possible there is chronic osteomyelitis, though this is not confirmed on MR imaging and the wound does not probe to bone as well. There is further no evidence of bone infection to the right forefoot or toes. Again, this is likely a artifact of the MR imaging or inflammation of the toe, rather than any specific osteomyelitis of the phalanx. Because of the chronicity of the ulcer, she Would benefit from continued wound care and likely more sharp debridement of the wound. This would not necessarily need to be surgical but could be performed by the wound care team.. She has seen the [facility] wound care center and Rosa with the inpatient team and would like to follow up with her as well. A consult will be placed to see the patient met that he team. For now, in order for Bactroban with daily dressing changes was placed. We will plan on following up with her on this admission and can continue to follow up with her outpatient since her prior provider is no longer in the area. Patient is amenable to this at this time. Thank you for the consult, we look forward to helping out long-term with her care. History of Present Illness Reason for Consultation: Right foot and ankle osteomyelitis Attending Physician: J Carlos Johnson MD History of Present Illness Patient seen at bedside. She states that she is doing well at this point but has been admitted with weakness and concerns of these right foot and ankle ulcerations.She has a history of injury to the right ankle and has had this wound with wound care for the last year or so. She saw a foot and ankle surgeon [place] at [facility] last year and had some Fibular bone excision because of this ulceration. There was corynebacterium growth at the time. She underwent successful treatment and had been healing. Now, on this hospitalization, she had MRI performed of both feet and ankles to evaluate for any source of infection to the lower extremities. She currently denies any signs or symptoms of local or systemic infection. She also denies any other recent medical history change. Allergies Allergy/AdvReac Type Severity Reaction Status Date / Time tizanidine AdvReac Intermediate lethargy Verified 10/14/24 23:52 Home Medications Medication Instructions Recorded Confirmed Type cholecalciferol (vitamin D3) 25 2,000 units PO QAM 09/18/18 10/14/24 History mcg (1,000 unit) capsule escitalopram oxalate 20 mg tablet 20 mg PO QAM 09/18/18 10/14/24 History (Lexapro) oxybutynin chloride 15 mg 15 mg PO QAM 09/18/18 10/14/24 History tablet,extended release 24 hr prednisone 10 mg tablet 10 mg PO QAM 09/18/18 10/14/24 History omeprazole 40 mg capsule,delayed 40 mg PO QAM 07/06/21 10/14/24 History release teriflunomide 14 mg tablet 14 mg PO QPM 05/13/22 10/14/24 History (Aubagio) doxycycline hyclate 50 mg capsule 50 mg PO Q2D Rosacea 08/10/22 10/14/24 History melatonin 3 mg tablet 3 mg PO HS 03/05/23 10/14/24 History multivitamin 1 tab PO DAILY 03/05/23 10/14/24 History Baclofen Pump 0 mg SC DIRECTED 08/05/23 10/14/24 History apixaban 5 mg tablet (Eliquis) 5 mg PO BID 02/03/24 10/14/24 History atorvastatin 40 mg tablet 40 mg PO QAM 09/13/24 10/14/24 History duloxetine 30 mg capsule,delayed 30 mg PO DAILY 09/13/24 10/14/24 History release metoprolol succinate 25 mg 25 mg PO BID 10/01/24 10/14/24 History tablet,extended release 24 hr tizanidine 4 mg tablet (Zanaflex) 4 mg PO Q6H Muscle Spasm 10/01/24 10/14/24 History Patient History Medical History Osteoarthritis of right knee Cellulitis of right lower extremity Anemia Cellulitis Acute leg pain Fever History of recent hospitalization 09/2022 [facility] - sepsis History of blood transfusion Limb alert care status left arm Osteoarthritis of right shoulder History of GI bleed Upper GIB (2019) felt 2/2 NSAID use History of non-ST elevation myocardial infarction (NSTEMI) 06/2021 (had heart cath, no stents) Hx of gastric ulcer 02/2021 Anemia Hypertension controlled, stable per pt Surgical History History of removal of Port-a-Cath (02/09/24) Mediport Removal(Right) - Tristin Lazo DO Port-A-Cath in place (09/29/23) A-Port Insertion, right internal jugular(Right) - Tristin Lazo DO S/p reverse total shoulder arthroplasty right: 05/25/22 LMA#4. No postop issues per anesthesia progress note. History of cardiac cath Cardiac cath (07/06/21; [facility]) > Right dominant coronary system. No evidence of aortic stenosis. Normal left ventricular filling pressures. Nonobstructive disease involving the ostial LAD. No evidence of acute coronary syndrome. Approximately 50% ostial stenosis of the LAD. There was some very mild disease at the ostium of the left circumflex. Recommendations: Medical management. History of esophagogastroduodenoscopy (EGD) History of colonoscopy History of tooth extraction Family History Mother Heart disorder Other No family history of adverse response to anesthesia Social History Smoking Status: Former smoker Tobacco Type: Cigarettes packs per day: 1; Cigarettes Per Day: stopped in 1977; Second Hand Exposure: No; Do You Dip or Chew Tobacco: No; Hx Alcohol Use: No Hx Substance Use: No Preferred Language: Sami Communication Ability: Effective Communication Ability Comment: Wears glasses Visual Impairment: Limited Hearing Ability: Use of Hearing Aid Complex Human Resources Manager Required: No Beliefs That Will Affect Care: None marital status: / Current Living Situation: Alone Current Living Situation Comment: daughters are an hour away but check on her frequently per pt current occupational status: retired How many Children do You have: 3 Feels Safe at Home: Yes Safety Concerns: Feels Safe At This Time Childhood Exposure to Second-Hand Smoke: Yes Diet: regular caffeine: Yes Assistive Devices: Walker and Wheelchair Review of Systems Review of Systems: All systems reviewed & are unremarkable except as noted in HPI & below Constitutional: + weakness; no fever, no chills and no f atigue Eyes: no problem reported Ear, Nose, Mouth, Throat: no problem reported Respiratory: no problem reported Cardiovascular: + edema; no problem reported Gastrointestinal: no nausea, no vomiting and no problem reported Genitourinary: no problem reported Musculoskeletal: no problem reported Integumentary: + skin ulcer, + wounds and + erythema Neurologic: + loss of sensation, + numbness and + pa resthesia; no generalized weakness Psychiatric: no problem reported Physical Exam Physical Exam: Lower extremity focused exam: DP/PT pulses 1/4 bilaterally. CFT is brisk to the digits. No open lesions noted to the digits or forefoot.. No evidence clinically of infection to the right hallux or remainder of the digits. There is a well-circumscribed dry ulceration overlying the right fibula. This is chhronic appearing in nature and consistent with underlying neuropathy and arterial insufficiency. No active bleeding noted. No purulent drainage is appreciated. Constitutional: WD/WN, vitals as above + ill appearing and + thin Eyes: PERRL, conjunctivae normal, anicteric sclerae ENMT: external ear and nose normal, oropharynx normal Neck: trachea midline, no thyromegaly normal visual inspection Respiratory: normal respiratory effort; no respiratory distress Cardiovascular: Rate/Rhythm: regular rate and regular rhythm Chest (Breasts): Chest: normal inspection of chest Gastrointestinal (Abdomen): Inspection/Auscultation: abdomen normal to inspection Percussion/Palpation: + abdomen tender and abdomen soft Musculoskeletal: no cyanosis or clubbing, extremities motor strength 5/5 Head/Neck/Chest: normocephalic, head atraumatic and + limited ROM of neck Extremities: extremities normal to inspection and + limited ROM of extremities Skin: + ulcer and + skin atrophy Neurologic: awake; no focal motor deficits Psychiatric: A+Ox3, euthymic affect Results & Data Vital Signs (Past 12 Hours) Vital Signs Temp Pulse Pulse Resp BP Pulse Ox O2 Del Method 10/16/24 19:20 36.5 C 93 H 20 126/83 95 Room Air 10/16/24 16:17 93 H 10/16/24 15:29 36.7 C 94 H 17 126/80 98 Room Air 10/16/24 12:12 36.7 C 93 H 18 112/73 95 Room Air 10/16/24 09:44 79 Diagnostic Findings MRI of the right ankle suggests no wworsening infectious changes with no increased fluid signal to the lateral malleolus since prior imaging. Similarly, her right halllux has unchanged fluid signal to the distal tuft of the phalanx. This could either be edge artifact or edema of the phalanx due to the rigid contracture of the toe and a hallux malleus position. Clinically, this does not correlate with any bone infection.
[2024-10-16] MEDS: TERIFLUNOMIDE 14 MG TAB PO SCH (21:19)
--- NOTE | 2024-10-16 22:04 | Communication Note ---
Date of Service: October 16, 2024 Consult placed to pain management re: pt's pain pump which MRI recommended given pt's recent MRIs. Was in touch with Dr Fishman today who graciously advised they will see pt tomorrow 10/17/24, and that she has very low/minimal rate and they do not anticipate any related withdrawal.
[2024-10-17 06:36] LABS: Basophils # (auto) 0.04 K/uL (0.00-0.20); Basophils % (auto) 0.8 %; Eosinophils # (auto) 0.06 K/uL (0.00-0.50); Eosinophils % (auto) 1.2 %; Hematocrit (blood only) 26.2 % (37.0-47.0); Hemoglobin 8.4 g/dl (12.0-16.0); Immature Granulocytes # (auto) 0.03 K/uL (0.01-0.20); Immature Granulocytes % (auto) 0.6 %; Lymphocytes # (auto) 1.31 K/uL (1.20-3.40); Lymphocytes % (auto) 25.9 %; Mean Corpuscular Hemoglobin 28.1 pg (25.0-34.0); Mean Corpuscular Hgb Conc 32.1 g/dL (32.0-36.0); Mean Corpuscular Volume 87.6 fL (80.0-100.0); Mean Platelet Volume 10.6 fL (9.4-12.4); Monocytes # (auto) 0.72 K/uL (0.11-0.59); Monocytes % (auto) 14.3 %; Neutrophils # (auto) 2.89 K/uL (1.40-6.50); Neutrophils % (auto) 57.2 %; Nucleated RBC # (auto) 0.02 K/uL (0.00-0.12); Nucleated RBC % (auto) 0.4 %; Platelet Count 271 K/uL (130-400); RDW Coefficient of Variation 18.6 % (11.5-14.5); RDW Standard Deviation 59.1 fL (36.4-46.3); Red Blood Count 2.99 M/uL (4.20-5.40); White Blood Count 5.05 K/ul (4.8-10.8)
[2024-10-17 07:02] LABS: Calcium 8.8 mg/dl (8.6-10.3); Magnesium 1.7 mg/dl (1.7-2.4); Phosphorus 3.2 mg/dl (2.5-4.9); Potassium 3.6 mmol/L (3.5-5.1)
[2024-10-17] MEDS: FERROUS SULFATE 325 MG TAB PO SCH (08:12)
[2024-10-17] MEDS: MUPIROCIN 2% OINT 22 GM TUBE EXT SCH (08:16)
--- NOTE | 2024-10-17 08:49 | Pain Management Consultation ---
Date of Consultation October 17, 2024 Assessment & Plan (1) Complicated UTI (urinary tract infection): (2) Septic shock: (3) Contusion of face: Encounter type: initial encounter Qualified Code(s): S00.83XA - Contusion of other part of head, initial encounter (4) Multiple sclerosis: (5) Presence of intrathecal pump: Plan Intrathecal pump was interrogated and shows that the pump stall occurred on 10/15/24 at 11PM and recovered on 10/16/24 at 1046AM. She will continue to receive Baclofen at 23.8mcg/day. Pump refill date will be scheduled out 3 months as we will not refill with a recent infection. Low reservoir alarm is scheduled for 02/23/31 and estimated replacement date is March 2029. No changes were made to the pump settings. History of Present Illness Attending Physician: J Carlos Johnson MD History of Present Illness Kandy is a 73-year-old female that is well-known to the [facility] pain service with a significant history of multiple sclerosis that required the implantation of an intrathecal pump containing baclofen. She was recently admitted for urosepsis and also had MRIs of her right lower extremity to rule out osteomyelitis. As the intrathecal pump stalls from an MRI, the pain clinic was asked to interrogate the pump to ensure that the pump restarted. She denies any worsening spasms of the lower extremities. She denies any constitutional complaints and feeling well this morning. Case discussed with Dr. Hannah Fishman Allergies Allergy/AdvReac Type Severity Reaction Status Date / Time tizanidine AdvReac Intermediate lethargy Verified 10/14/24 23:52 Home Medications Medication Instructions Recorded Confirmed Type cholecalciferol (vitamin D3) 25 2,000 units PO QAM 09/18/18 10/14/24 History mcg (1,000 unit) capsule escitalopram oxalate 20 mg tablet 20 mg PO QAM 09/18/18 10/14/24 History (Lexapro) oxybutynin chloride 15 mg 15 mg PO QAM 09/18/18 10/14/24 History tablet,extended release 24 hr prednisone 10 mg tablet 10 mg PO QAM 09/18/18 10/14/24 History omeprazole 40 mg capsule,delayed 40 mg PO QAM 07/06/21 10/14/24 History release teriflunomide 14 mg tablet 14 mg PO QPM 05/13/22 10/14/24 History (Aubagio) doxycycline hyclate 50 mg capsule 50 mg PO Q2D Rosacea 08/10/22 10/14/24 History melatonin 3 mg tablet 3 mg PO HS 03/05/23 10/14/24 History multivitamin 1 tab PO DAILY 03/05/23 10/14/24 History Baclofen Pump 0 mg SC DIRECTED 08/05/23 10/14/24 History apixaban 5 mg tablet (Eliquis) 5 mg PO BID 02/03/24 10/14/24 History atorvastatin 40 mg tablet 40 mg PO QAM 09/13/24 10/14/24 History duloxetine 30 mg capsule,delayed 30 mg PO DAILY 09/13/24 10/14/24 History release metoprolol succinate 25 mg 25 mg PO BID 10/01/24 10/14/24 History tablet,extended release 24 hr tizanidine 4 mg tablet (Zanaflex) 4 mg PO Q6H Muscle Spasm 10/01/24 10/14/24 History Patient History Medical History Osteoarthritis of right knee Cellulitis of right lower extremity Anemia Cellulitis Acute leg pain Fever History of recent hospitalization 09/2022 [facility] - sepsis History of blood transfusion Limb alert care status left arm Osteoarthritis of right shoulder History of GI bleed Upper GIB (2019) felt 2/2 NSAID use History of non-ST elevation myocardial infarction (NSTEMI) 06/2021 (had heart cath, no stents) Hx of gastric ulcer 02/2021 Anemia Hypertension controlled, stable per pt Surgical History History of removal of Port-a-Cath (02/09/24) Mediport Removal(Right) - Tristin Lazo DO Port-A-Cath in place (09/29/23) A-Port Insertion, right internal jugular(Right) - Tristin Lazo DO S/p reverse total shoulder arthroplasty right: 05/25/22 LMA#4. No postop issues per anesthesia progress note. History of cardiac cath Cardiac cath (07/06/21; [facility]) > Right dominant coronary system. No evidence of aortic stenosis. Normal left ventricular filling pressures. Nonobstructive disease involving the ostial LAD. No evidence of acute coronary syndrome. Approximately 50% ostial stenosis of the LAD. There was some very mild disease at the ostium of the left circumflex. Recommendations: Medical management. History of esophagogastroduodenoscopy (EGD) History of colonoscopy History of tooth extraction Family History Mother Heart disorder Other No family history of adverse response to anesthesia Social History Smoking Status: Former smoker Tobacco Type: Cigarettes packs per day: 1; Cigarettes Per Day: stopped in 1977; Second Hand Exposure: No; Do You Dip or Chew Tobacco: No; Hx Alcohol Use: No Hx Substance Use: No Preferred Language: Greek Communication Ability: Effective Communication Ability Comment: Wears glasses Visual Impairment: Limited Hearing Ability: Use of Hearing Aid Weekend Receptionist Required: No Beliefs That Will Affect Care: None marital status: / Current Living Situation: Alone Current Living Situation Comment: daughters are an hour away but check on her frequently per pt current occupational status: retired How many Children do You have: 3 Feels Safe at Home: Yes Safety Concerns: Feels Safe At This Time Childhood Exposure to Second-Hand Smoke: Yes Diet: regular caffeine: Yes Assistive Devices: Walker and Wheelchair Physical Exam Physical Exam: GENERAL: This is a 73 year old female in no acute distress. HEAD/FACE: Normocephalic. + ecchymotic. EYES: No drainage or conjunctival injection. ENT: Nose without bleeding or discharge. Oral mucosa moist. NECK: Full ROM without apparent pain. No swelling or masses noted. RESPIRATORY: Patient with unlabored breathing. No signs of respiratory distress. CHEST/AXILLA: Chest movement symmetrical. No deformities noted. ABDOMEN/GI: No distension. Intrathecal pump is located in the left lower abdomen. No notable skin breakdown, warmth, or drainage. BACK: Moves without difficulty SKIN: [place], warm and dry. MS/EXTREMITY: + scattered ecchymosis. NEURO: Alert and appears oriented. Speech is fluent. Cranial Nerves are grossly intact. PSYCH: Alert, pleasant, affect is calm
--- NOTE | 2024-10-17 16:52 | Podiatry Progress Note ---
Date of Service October 17, 2024 Assessment & Plan (1) Sepsis: (2) Lower extremity cellulitis: (3) Wound infection: (4) Chronic refractory osteomyelitis of ankle: Plan Patient was examined and evaluated. - we discussed that her MR imaging of her great toe is likely an artifact and not true osteomyelitis. - We can see Edge artifact and false increase in signal intensity towards the edge of the visualized extremity. Further, could be consistent with increased pressure underneath the hallux, though there is no clinical evidence of infection in the area. - it is very unlikely that this right hallux has chronic osteomyelitis. - Wound care should continue treatment for the lateral malleolar wound, both on this admission and once she is discharged with the outpatient [facility] and the wound care clinic. - If they fail to see improvement in the next few months, we will be happy to follow-up with her on an outpatient basis as well. - With no planned intervention for her, we will sign off for now. Please do not hesitate to re-consult us as necessary. Admission and Anticipated Discharge Date Admission Date: October 14, 2024 Subjective patient seen at bedside. She denies any new concerns. She states that she has seen wound care since yesterday. she is curious about the nature of her great toe infection. Denies any new pain to this area. Overall, is feeling great. Review of Systems Constitutional: + weakness; no fever, no chills and no f atigue Eyes: no problem reported Ear, Nose, Mouth, Throat: no problem reported Respiratory: no problem reported Cardiovascular: + edema; no problem reported Gastrointestinal: no nausea, no vomiting and no problem reported Genitourinary: no problem reported Musculoskeletal: no problem reported Integumentary: + skin ulcer, + wounds and + erythema Neurologic: + loss of sensation, + numbness and + pa resthesia; no generalized weakness Psychiatric: no problem reported Physical Exam Physical Exam: Lower extremity focused exam: DP/PT pulses 1/4 bilaterally. CFT is brisk to the digits. No open lesions noted to the digits or forefoot.. No evidence clinically of infection to the right hallux or remainder of the digits. There is a well-circumscribed dry ulceration overlying the right fibula. This is chhronic appearing in nature and consistent with underlying neuropathy and arterial insufficiency. No active bleeding noted. No purulent drainage is appreciated. Constitutional: WD/WN, vitals as above + ill appearing, + obese and + thin Eyes: PERRL, conjunctivae normal, anicteric sclerae ENMT: external ear and nose normal, oropharynx normal Neck: trachea midline, no thyromegaly normal visual inspection Respiratory: normal respiratory effort; no respiratory distress Cardiovascular: Rate/Rhythm: regular rate and regular rhythm Chest (Breasts): Chest: normal inspection of chest Gastrointestinal (Abdomen): Inspection/Auscultation: abdomen normal to inspection Percussion/Palpation: + abdomen tender and abdomen soft Musculoskeletal: no cyanosis or clubbing, extremities motor strength 5/5 Head/Neck/Chest: normocephalic, head atraumatic and + limited ROM of neck Extremities: extremities normal to inspection and + limited ROM of extremities Skin: + ulcer and + skin atrophy Neurologic: awake; no focal motor deficits Psychiatric: A+Ox3, euthymic affect Results & Data Results & Data Vital Signs (Past 12 Hours) Vital Signs Temp Pulse Pulse Pulse Resp BP Pulse Ox 10/17/24 15:40 95 H 10/17/24 15:27 36.3 C L 91 H 18 134/82 96 10/17/24 14:53 78 10/17/24 11:14 36.4 C L 77 16 107/85 95 10/17/24 08:00 36.7 C 71 18 129/93 95 O2 Del Method 10/17/24 15:40 10/17/24 15:27 Room Air 10/17/24 14:53 10/17/24 11:14 Room Air 10/17/24 08:00 Room Air (2) Lower extremity cellulitis Laterality: right Qualified Code(s): L03.115 - Cellulitis of right lower limb (4) Chronic refractory osteomyelitis of ankle Laterality: right Qualified Code(s): M86.671 - Other chronic osteomyelitis, right ankle and foot
[2024-10-17] MEDS: CEFEPIME 2000MG 2,000 MG/20 ML SYR IV SCH (21:46)
--- NOTE | 2024-10-18 04:29 | Hospitalist Progress Note ---
Date of Service October 17, 2024 Assessment & Plan (1) Sepsis: (2) Elevated lactic acid level: (3) Hypomagnesemia: (4) Leukocytosis: (5) Complicated UTI (urinary tract infection): (6) Multiple sclerosis: (7) Presence of intrathecal pump: (8) Immunocompromised due to corticosteroids: Plan Kandy Shelby is a 73y/o F with PMHx significant for CAD, HTN, HLD, PAF, PSVT, nonrheumatic aortic valve stenosis, Raynaud's syndrome, history ESBL E. coli UTI, prior DVT with pulmonary emboli s/p IVC filter placement [on Eliquis], GERD with esophagitis, protein-calorie malnutrition, neurogenic bladder, multiple sclerosis [on chronic prednisone + Aubagio-], polyneuropathy with chronic pain on Baclofen pump, tobacco use, anemia of chronic disease [baseline Hgb ~9-10], depression with anxiety, sicca syndrome, history of nonmelanoma skin cancer s/p Mohs operation, left breast cancer s/p radiation + surgery, rosacea [on doxycycline], right foot drop, bilateral lower extremity venous stasis, chronic osteomyelitis of the right fibula, chronic right lateral ankle wound and recur rent right lower extremity cellulitis and recent admit for complicated UTI and sepsis who presented to the ED with significant chills throughout the day. Severe Sepsis Septic Shock Lower Extremity cellulitis Lower extremity swelling patient presenting with subjective fevers, noted to be febrile here with also noted leukocytosis blood pressures overnight trending down lactate elevated and down trended after fluid resuscitation Respiratory panel negative Chest x-ray unremarkable UA this admission unremarkable Blood cultures 2 sets with no growth to date MRI of the bilateral lower extremities (legs and feet) notable for cellulitis, concern for chronic osteomyelitis in right great toe, unchanged. Notes lots of edema. Bilateral venous Doppler of lower extremities with no noted DVT continue with IV cefepime and daptomycin, follow cultures Given patient's history consider infectious disease consult Podiatry consulted for R great toe findings on MRI, appreciate recs blood pressures have improved-will continue with home metoprolol at this time as well as home steroids Continue to monitor 10/16/2024- septic shock resolved, wbc normal. BP sustaining, started on IV Lasix 20mg daily to help with lower extremity swelling. Acute on chronic anemia Iron Deficiency anemia Hemoglobin 7.8 on arrival and down trended to 6.9 Status post transfusion of 1 unit of packed RBCs with noted hemoglobin of 8.9 afterwards Suspect dilutional component as well A.m. anemia panel noting low iron levels, s/p IV venofer 200mg on 10/16/24 Started on po ferrous sulfate continue to monitor and transfuse as needed for hgb <8 Holding home Eliquis at this time, consider resuming in the AM if Hgb remains above 8 Resume as able Possible Emphysematous Cystitis Pt with recent admission for urosepsis on 10/01 UA from 10/01 grew pseudomonas which was treated Repeat UA this admission with no concern for infection KUB ordered for MRI to be completed, noting possible emphysematous cystitis recommending clinical correlation Consider CT abd/pelvis Pt currently without urinary symptoms Also on Cefepime in regimen noted above for cellulitis Continue to monitor symptoms hypomagnesemia Replete as needed Continue other home meds as ordered CODE STATUS: full code Diet: HH VTE prophylaxis: Patient is on chronic apixaban, currently on hold in setting of need for blood transfusion. SCDs Dispo: PT/OT once more medically stable Admission and Anticipated Discharge Date Admission Date: October 14, 2024 Subjective Patient seen in follow up Overall feels well, much improved since admission Was seen by podiatry last evening Denies any fever, chills, chest pain, shortness of breath, abd. pain, n/v Review of Systems Review of Systems: All systems reviewed & are unremarkable except as noted in Subjective Physical Exam Physical Exam: General: Alert, oriented. No acute distress Skin: erythema to feet and lower extremities bilaterally. bruising noted on face Psych: Appropriate mood and affect HEENT: NC/AT CV: RRR, +murmur Resp: Breath sounds clear bilaterally, no increased effort of breathing Abdomen:Soft, nontender Extremities: edema in lower extremities bilaterally as well as erythema and warmth. Results & Data Results & Data Vital Signs (Past 12 Hours) Vital Signs Temp Pulse Pulse Resp BP Pulse Ox O2 Del Method 10/17/24 23:15 36.5 C 78 16 120/75 95 Room Air 10/17/24 21:54 79 10/17/24 21:02 36.5 C 86 18 122/74 96 Room Air Laboratory Results 10/17/24 10/14/24 Range/Units 05:41 16:10 WBC 5.05 (4.8-10.8) K/ul RBC 2.99 L (4.20-5.40) M/uL Hgb 8.4 L (12.0-16.0) g/dl Hct 26.2 L (37.0-47.0) % MCV 87.6 (80.0-100.0) fL MCH 28.1 (25.0-34.0) pg MCHC 32.1 (32.0-36.0) g/dL RDW Std Deviation 59.1 H (36.4-46.3) fL RDW Coeff of Tiffanie 18.6 H (11.5-14.5) % Plt Count 271 (130-400) K/uL MPV 10.6 (9.4-12.4) fL Immature Gran % (Auto) 0.6 % Neut % (Auto) 57.2 % Lymph % (Auto) 25.9 % [place] % (Auto) 14.3 % Eos % (Auto) 1.2 % Baso % (Auto) 0.8 % Neut # (Auto) 2.89 (1.40-6.50) K/uL Lymph # (Auto) 1.31 (1.20-3.40) K/uL [place] # (Auto) 0.72 H (0.11-0.59) K/uL Eos # (Auto) 0.06 (0.00-0.50) K/uL Baso # (Auto) 0.04 (0.00-0.20) K/uL Immature Gran # (Auto) 0.03 (0.01-0.20) K/uL Absolute Nucleated RBC 0.02 (0.00-0.12) K/uL Nucleated RBC % (auto) 0.4 % Sodium 142 (136-145) mmol/L Potassium 3.6 (3.5-5.1) mmol/L Chloride 103 (98-107) mmol/L Carbon Dioxide 32 (21-32) mmol/L Anion Gap 7 (3-11) BUN 20 (6-23) mg/dl Creatinine 0.91 (0.6-1.2) mg/dl Est Cr Clr Drug Dosing 49.0 ml/min eGFR 67.45 BUN/Creatinine Ratio 22.0 H (10-20) Glucose 82 (70-99(Fasting)) mg/dl Calcium 8.8 (8.6-10.3) mg/dl Phosphorus 3.2 (2.5-4.9) mg/dl Magnesium 1.7 (1.7-2.4) mg/dl Crossmatch See Detail Medications Administered Current Inpatient Medications Acetaminophen (Acetaminophen 325 Mg Tab) 650 mg PO Q4H PRN PRN Reason: Pain or Fever Stop: 11/13/24 21:02 Last Admin: 10/15/24 02:21 Dose: 650 mg Al Hydrox/Mg Hydrox/Simethicone (Aluminum/Magnesium Susp 30 Ml Udc) 15 ml PO Q4H PRN PRN Reason: Dyspepsia Stop: 11/13/24 21:02 Apixaban (Apixaban 5 Mg Tablet) 5 mg PO BID [facility] Stop: 11/13/24 21:02 Last Admin: 10/14/24 21:48 Dose: 5 mg Baclofen (Baclofen Pain Pump) 1 pump IT UD [facility] Stop: 11/13/24 21:23 Doxycycline Hyclate (Doxycycline Hyclate 50 Mg Cap) 50 mg PO Q2D [facility] Stop: 10/22/24 08:59 Last Admin: 10/17/24 08:12 Dose: 50 mg Duloxetine HCl (Duloxetine Hcl 30 Mg Cap) 30 mg PO DAILY [facility] Stop: 11/14/24 08:59 Last Admin: 10/17/24 08:13 Dose: 30 mg Escitalopram Oxalate (Escitalopram Oxalate 20 Mg Tab) 20 mg PO QAM [facility] Stop: 11/14/24 08:59 Last Admin: 10/17/24 08:13 Dose: 20 mg Ferrous Sulfate (Ferrous Sulfate 325 Mg Tab) 325 mg PO QAM [facility] Stop: 11/16/24 08:59 Last Admin: 10/17/24 08:12 Dose: 325 mg Furosemide (Furosemide Inj 20 Mg/2 Ml Vial) 20 mg IV DAILY [facility] Stop: 11/15/24 13:44 Last Admin: 10/17/24 08:17 Dose: 20 mg Daptomycin 225 mg/ Syringe 4.5 mls @ 2.25 mls/min IV Q24H [facility]; Protocol Stop: 10/22/24 03:14 Last Admin: 10/17/24 05:54 Dose: 2.25 mls/min Cefepime HCl (Maxipime 2000mg) 2,000 mg in 20 mls @ 5 mls/min IV Q12 [facility]; Protocol Stop: 10/22/24 00:00 Last Admin: 10/17/24 21:46 Dose: 5 mls/min Melatonin (Melatonin 3 Mg Tab) 3 mg PO HS [facility] Stop: 11/13/24 21:02 Last Admin: 10/17/24 20:26 Dose: 3 mg Metoprolol Succinate (Metoprolol Succ 25mg Ext Rel Tab) 25 mg PO BID [facility] Stop: 11/13/24 21:02 Last Admin: 10/17/24 20:26 Dose: 25 mg Multivitamins (Multivitamin Tab) 1 tab PO QAM [facility] Stop: 11/14/24 08:59 Last Admin: 10/17/24 08:13 Dose: 1 tab Mupirocin (Mupirocin 2% Oint 22 Gm Tube) 1 appln EXT DAILY [facility] Stop: 11/16/24 08:59 Last Admin: 10/17/24 08:16 Dose: 1 appln Ondansetron HCl (Ondansetron Inj 2 Mg/Ml 2 Ml Vial) 4 mg IV Q6H PRN PRN Reason: Nausea Stop: 11/13/24 21:02 Oxybutynin Chloride (Oxybutynin Chloride Xl 5 Mg Tabcr) 15 mg PO QAM [facility] Stop: 11/14/24 08:59 Last Admin: 10/17/24 08:12 Dose: 15 mg Pantoprazole Sodium (Pantoprazole 40 Mg Tab) 40 mg PO QAM [facility] Stop: 11/14/24 08:59 Last Admin: 10/17/24 08:12 Dose: 40 mg Polyethylene Glycol (Polyethylene (Miralax) 17 Gm Pack) 17 gm PO DAILY PRN PRN Reason: Constipation Stop: 11/13/24 21:02 Prednisone (Prednisone 10 Mg Tablet) 10 mg PO QAM [facility] Stop: 11/14/24 08:59 Last Admin: 10/17/24 08:13 Dose: 10 mg Teriflunomide (Teriflunomide 14 Mg Tab) 14 mg PO QPM [facility] Stop: 11/15/24 20:59 Last Admin: 10/17/24 20:26 Dose: 14 mg Tizanidine HCl (Tizanidine Hcl 4 Mg Tablet) 4 mg PO Q6H [facility] Stop: 11/13/24 20:59 Last Admin: 10/14/24 21:48 Dose: 4 mg Vitamin D (Cholecalciferol 25 Mcg (1000 Units) Tab) [facility] Stop: 11/14/24 08:59 Last Admin: 10/17/24 08:12 Dose: 25 mcg
[2024-10-18 08:04] LABS: Basophils # (auto) 0.07 K/uL (0.00-0.20); Basophils % (auto) 1.3 %; Eosinophils # (auto) 0.09 K/uL (0.00-0.50); Eosinophils % (auto) 1.7 %; Hemoglobin 9.6 g/dl (12.0-16.0); Immature Granulocytes # (auto) 0.02 K/uL (0.01-0.20); Immature Granulocytes % (auto) 0.4 %; Lymphocytes # (auto) 1.39 K/uL (1.20-3.40); Lymphocytes % (auto) 26.6 %; Mean Corpuscular Hemoglobin 27.8 pg (25.0-34.0); Mean Platelet Volume 10.1 fL (9.4-12.4); Monocytes # (auto) 0.61 K/uL (0.11-0.59); Monocytes % (auto) 11.7 %; Neutrophils # (auto) 3.04 K/uL (1.40-6.50); Neutrophils % (auto) 58.3 %; Nucleated RBC # (auto) 0.03 K/uL (0.00-0.12); Nucleated RBC % (auto) 0.6 %; Platelet Count 292 K/uL (130-400); RDW Coefficient of Variation 18.5 % (11.5-14.5); RDW Standard Deviation 58.9 fL (36.4-46.3); Red Blood Count 3.45 M/uL (4.20-5.40); White Blood Count 5.22 K/ul (4.8-10.8)
[2024-10-18 08:31] LABS: BUN Creatinine Ratio 29.5 (10-20); Calcium 9.3 mg/dl (8.6-10.3); Creatinine Clr Calc Pharmacy 50.6 ml/min; Magnesium 1.8 mg/dl (1.7-2.4); Phosphorus 3.3 mg/dl (2.5-4.9); Potassium 3.7 mmol/L (3.5-5.1)
--- NOTE | 2024-10-19 08:01 | Hospitalist Progress Note ---
Date of Service October 18, 2024 (late entry) Assessment & Plan (1) Sepsis: (2) Elevated lactic acid level: (3) Hypomagnesemia: (4) Leukocytosis: (5) Complicated UTI (urinary tract infection): (6) Multiple sclerosis: (7) Presence of intrathecal pump: (8) Immunocompromised due to corticosteroids: Plan Kandy Shelby is a 73y/o F with PMHx significant for CAD, HTN, HLD, PAF, PSVT, nonrheumatic aortic valve stenosis, Raynaud's syndrome, history ESBL E. coli UTI, prior DVT with pulmonary emboli s/p IVC filter placement [on Eliquis], GERD with esophagitis, protein-calorie malnutrition, neurogenic bladder, multiple sclerosis [on chronic prednisone + Aubagio-], polyneuropathy with chronic pain on Baclofen pump, tobacco use, anemia of chronic disease [baseline Hgb ~9-10], depression with anxiety, sicca syndrome, history of nonmelanoma skin cancer s/p Mohs operation, left breast cancer s/p radiation + surgery, rosacea [on doxycycline], right foot drop, bilateral lower extremity venous stasis, chronic osteomyelitis of the right fibula, chronic right lateral ankle wound and recurrent right lower extremity cellulitis and recent admit for complicated UTI and sepsis who presented to the ED with significant chills throughout the day. Severe Sepsis Septic Shock Lower Extremity cellulitis Lower extremity swelling patient presenting with subjective fevers, noted to be febrile here with also noted leukocytosis blood pressures overnight trending down lactate elevated and down trended after fluid resuscitation Respiratory panel negative Chest x-ray unremarkable UA this admission unremarkable Bilateral venous Doppler of lower extremities with no noted DVT Blood cultures 2 sets with no growth to date MRI of the bilateral lower extremities (legs and feet) notable for cellulitis, concern for chronic osteomyelitis in right great toe, unchanged. Notes lots of edema. continue with IV cefepime and daptomycin, follow cultures Podiatry consulted for R great toe findings on MRI Per podiatry - Right ankle wound was cleaned and redressed with an adhesive bandage. Wound swab cultures were obtained at bedside. This wound does appear stable without any active purulent drainage or obvious infection. It is possible there is chronic osteomyelitis, though this is not confirmed on MR imaging and the wound does not probe to bone as well. There is further no evidence of bone infection to the right forefoot or toes. Again, this is likely a artifact of the MR imaging or inflammation of the toe, rather than any specific osteomyelitis of the phalanx. Because of the chronicity of the ulcer, she Would benefit from continued wound care and likely more sharp debridement of the wound. This would not necessarily need to be surgical but could be performed by the wound care team. A consult will be placed to see the patient met that he team. For now, in order for Bactroban with daily dressing changes was placed. We will plan on following up with her on this admission and can continue to follow up with her outpatient since her prior provider is no longer in the area. Patient is amenable to this at this time. Thank you for the consult, we look forward to helping out long-term with her care. blood pressures have improved-will continue with home metoprolol at this time as well as home steroids Continue to monitor 10/16/2024- septic shock resolved, wbc normal. BP sustaining, started on IV Lasix 20mg daily to help with lower extremity swelling. Given patient's history will consult w/ infectious disease Acute on chronic anemia Iron Deficiency anemia Hemoglobin 7.8 on arrival and down trended to 6.9 Status post transfusion of 1 unit of packed RBCs with noted hemoglobin of 8.9 afterwards Suspect dilutional component as well A.m. anemia panel noting low iron levels, s/p IV venofer 200mg on 10/16/24 Started on po ferrous sulfate continue to monitor and transfuse as needed for hgb <8 Holding home Eliquis at this time, consider resuming if Hgb remains above 8 Resume as able Possible Emphysematous Cystitis Pt with recent admission for urosepsis on 10/01 UA from 10/01 grew pseudomonas which was treated Repeat UA this admission with no concern for infection KUB ordered for MRI to be completed, noting possible emphysematous cystitis recommending clinical correlation Consider CT abd/pelvis Pt currently without urinary symptoms Also on Cefepime in regimen noted above for cellulitis Continue to monitor symptoms hypomagnesemia Replete as needed Continue other home meds as ordered CODE STATUS: full code Diet: HH VTE prophylaxis: Patient is on chronic apixaban, currently on hold in setting of need for blood transfusion. SCDs Dispo: PT/OT once more medically stable Admission and Anticipated Discharge Date Admission Date: October 14, 2024 Subjective Patient seen in follow up Overall feels well, much improved since admission MRI of feet obtained and pt was seen by podiatry, cultx obtained by podiatry Will consult ID for further recs Denies any fever, chills, chest pain, shortness of breath, abd. pain, n/v Review of Systems Review of Systems: All systems reviewed & are unremarkable except as noted in Subjective Physical Exam Physical Exam: General: Alert, oriented. No acute distress Skin: erythema to feet and lower extremities bilaterally. bruising noted on face Psych: Appropriate mood and affect HEENT: NC/AT CV: RRR, +murmur Resp: Breath sounds clear bilaterally, no increased effort of breathing Abdomen:Soft, nontender Extremities: edema in lower extremities improved bilaterally as well as erythema Results & Data Results & Data Vital Signs (Past 12 Hours) Vital Signs Temp Pulse Pulse Resp BP Pulse Ox O2 Del Method 10/18/24 22:46 36.4 C L 84 14 103/68 95 Room Air 10/18/24 21:45 79 10/18/24 20:14 36.5 C 88 16 113/80 96 Room Air Laboratory Results 10/18/24 10/18/24 Range/Units 09:28 07:08 WBC 5.22 (4.8-10.8) K/ul RBC 3.45 L (4.20-5.40) M/uL Hgb 9.6 L (12.0-16.0) g/dl Hct 30.0 L (37.0-47.0) % MCV 87.0 (80.0-100.0) fL MCH 27.8 (25.0-34.0) pg MCHC 32.0 (32.0-36.0) g/dL RDW Std Deviation 58.9 H (36.4-46.3) fL RDW Coeff of Tiffanie 18.5 H (11.5-14.5) % Plt Count 292 (130-400) K/uL MPV 10.1 (9.4-12.4) fL Immature Gran % (Auto) 0.4 % Neut % (Auto) 58.3 % Lymph % (Auto) 26.6 % [place] % (Auto) 11.7 % Eos % (Auto) 1.7 % Baso % (Auto) 1.3 % Neut # (Auto) 3.04 (1.40-6.50) K/uL Lymph # (Auto) 1.39 (1.20-3.40) K/uL [place] # (Auto) 0.61 H (0.11-0.59) K/uL Eos # (Auto) 0.09 (0.00-0.50) K/uL Baso # (Auto) 0.07 (0.00-0.20) K/uL Immature Gran # (Auto) 0.02 (0.01-0.20) K/uL Absolute Nucleated RBC 0.03 (0.00-0.12) K/uL Nucleated RBC % (auto) 0.6 % Sodium 143 (136-145) mmol/L Potassium 3.7 (3.5-5.1) mmol/L Chloride 103 (98-107) mmol/L Carbon Dioxide 32 (21-32) mmol/L Anion Gap 8 (3-11) BUN 26 H (6-23) mg/dl Creatinine 0.88 (0.6-1.2) mg/dl Est Cr Clr Drug Dosing 50.6 ml/min eGFR 70.22 BUN/Creatinine Ratio 29.5 H (10-20) Glucose 84 (70-99(Fasting)) mg/dl Calcium 9.3 (8.6-10.3) mg/dl Phosphorus 3.3 (2.5-4.9) mg/dl Magnesium 1.8 (1.7-2.4) mg/dl Stool Occult Bld Scrn Positive A (Negative) Medications Administered Current Inpatient Medications Acetaminophen (Acetaminophen 325 Mg Tab) 650 mg PO Q4H PRN PRN Reason: Pain or Fever Stop: 11/13/24 21:02 Last Admin: 10/15/24 02:21 Dose: 650 mg Al Hydrox/Mg Hydrox/Simethicone (Aluminum/Magnesium Susp 30 Ml Udc) 15 ml PO Q4H PRN PRN Reason: Dyspepsia Stop: 11/13/24 21:02 Apixaban (Apixaban 5 Mg Tablet) 5 mg PO BID [facility] Stop: 11/13/24 21:02 Last Admin: 10/14/24 21:48 Dose: 5 mg Baclofen (Baclofen Pain Pump) 1 pump IT UD [facility] Stop: 11/13/24 21:23 Doxycycline Hyclate (Doxycycline Hyclate 50 Mg Cap) 50 mg PO Q2D [facility] Stop: 10/22/24 08:59 Last Admin: 10/17/24 08:12 Dose: 50 mg Duloxetine HCl (Duloxetine Hcl 30 Mg Cap) 30 mg PO DAILY [facility] Stop: 11/14/24 08:59 Last Admin: 10/18/24 08:10 Dose: 30 mg Escitalopram Oxalate (Escitalopram Oxalate 20 Mg Tab) 20 mg PO QAM [facility] Stop: 11/14/24 08:59 Last Admin: 10/18/24 08:10 Dose: 20 mg Ferrous Sulfate (Ferrous Sulfate 325 Mg Tab) 325 mg PO QAM [facility] Stop: 11/16/24 08:59 Last Admin: 10/18/24 08:10 Dose: 325 mg Furosemide (Furosemide Inj 20 Mg/2 Ml Vial) 20 mg IV DAILY [facility] Stop: 11/15/24 13:44 Last Admin: 10/18/24 09:27 Dose: 20 mg Daptomycin 225 mg/ Syringe 4.5 mls @ 2.25 mls/min IV Q24H [facility]; Protocol Stop: 10/22/24 03:14 Last Admin: 10/19/24 05:32 Dose: 2.25 mls/min Cefepime HCl (Maxipime 2000mg) 2,000 mg in 20 mls @ 5 mls/min IV Q12 [facility]; Protocol Stop: 10/22/24 00:00 Last Admin: 10/18/24 20:15 Dose: 5 mls/min Melatonin (Melatonin 3 Mg Tab) 3 mg PO HS [facility] Stop: 11/13/24 21:02 Last Admin: 10/18/24 20:15 Dose: 3 mg Metoprolol Succinate (Metoprolol Succ 25mg Ext Rel Tab) 25 mg PO BID [facility] Stop: 11/13/24 21:02 Last Admin: 10/18/24 20:16 Dose: 25 mg Multivitamins (Multivitamin Tab) 1 tab PO QAM [facility] Stop: 11/14/24 08:59 Last Admin: 10/18/24 08:10 Dose: 1 tab Mupirocin (Mupirocin 2% Oint 22 Gm Tube) 1 appln EXT DAILY [facility] Stop: 11/16/24 08:59 Last Admin: 10/18/24 08:09 Dose: 1 appln Ondansetron HCl (Ondansetron Inj 2 Mg/Ml 2 Ml Vial) 4 mg IV Q6H PRN PRN Reason: Nausea Stop: 11/13/24 21:02 Oxybutynin Chloride (Oxybutynin Chloride Xl 5 Mg Tabcr) [facility] Stop: 11/14/24 08:59 Last Admin: 10/18/24 08:09 Dose: 15 mg Pantoprazole Sodium (Pantoprazole 40 Mg Tab) [facility] Stop: 11/14/24 08:59 Last Admin: 10/18/24 08:10 Dose: 40 mg Polyethylene Glycol (Polyethylene (Miralax) 17 Gm Pack) 17 gm PO DAILY PRN PRN Reason: Constipation Stop: 11/13/24 21:02 Prednisone (Prednisone 10 Mg Tablet) [facility] Stop: 11/14/24 08:59 Last Admin: 10/18/24 08:10 Dose: 10 mg Teriflunomide (Teriflunomide 14 Mg Tab) 14 mg PO QPM [facility] Stop: 11/15/24 20:59 Last Admin: 10/18/24 20:15 Dose: 14 mg Tizanidine HCl (Tizanidine Hcl 4 Mg Tablet) 4 mg PO Q6H [facility] Stop: 11/13/24 20:59 Last Admin: 10/14/24 21:48 Dose: 4 mg Vitamin D (Cholecalciferol 25 Mcg (1000 Units) Tab) 25 [facility]cg [facility] Stop: 11/14/24 08:59 Last Admin: 10/18/24 08:10 Dose: 25 mcg
--- NOTE | 2024-10-19 13:57 | Infectious Disease Consult ---
Date of Service October 19, 2024 Telehealth Information I performed this visit using a real-time telehealth connection between my location and the patients location ([facility]). After connecting through interactive tele-video, patient was identified by name and date of and/or wristband check.Patient (or authorized healthcare medicare sales representative) was informed that this was a telemedicine visit and it was being conducted confidentially over secure lines. My office door was closed and no one else was present in the room with me.Patient (or authorized healthcare medicare sales representative) provided consent to proceed with the visit, expressed an understanding of privacy and security of the telemedicine visit, and gave permission to have a hospital medicare sales representative in the room in order to assist with the visit and to conduct portions of the visit, as needed. I informed the patient (or authorized healthcare medicare sales representative) that I reviewed their record and presented the opportunity for them to ask any questions regarding the visit today. The patient agreed to participate. Assessment & Plan (1) Complicated UTI (urinary tract infection): (2) Neurogenic bladder: (3) Chronic osteomyelitis involving right ankle and foot: Plan I have low concern for active infection in the feet. Her right ankle wound is chronic with likely underlying chronic osteomyelitis, and which does not explain her current presentation. Nevertheless, I would recommend obtaining a wound culture from right lateral malleolus to help guide antibiotic treatment. Meanwhile, If there is no concern for EVELINA, I would recommend shifting IV d aptomycin to IV vancomycin. Can continue on IV cefepime as well. I will follow-up on the wound culture from the lateral malleolus and decide on the final antibiotic plan. History of Present Illness History of Present Illness Mrs. Shelby is [id number] woman with past medical history ofMS,CAD, paroxysmal A-fib, history of pulmonary embolism/DVT, HTN, dyslipidemia and history of left breast cancer (status postsurgery and radiation) and osteomyelitis of the right ankle who was admitted to [facility] on 10/14 because of chills. She was recently admitted to [facility] (discharged on 10/08/2024) and was treated for complicated urinary tract infection for a total of 7 days. She is well-known to our service since mid 2022 because of right ankle osteomyelitis. She underwent I&D with excision of the right fibula in mid April 2023 with cultures growing Enterococcus faecalis and for which she was treated with 6-week course of IV ampicillin. The wound was healing poorly and thus she underwent another I&D in August 2023 with cultures growing corynebacterium at that time and for which she was treated with a 6-week course of IV vancomycin. On this admission, she was found to be febrile at 39.3 and tachycardic. Initial workup showed leukocytosis of 32.7 (ANC 30), and respiratory viral panel was negative. Foot MRI showed subcutaneous soft tissue edema with fat stranding and fluid collection on the dorsal aspect of the left foot with enhancement distal phalangeal tuft of the great toe on the right foot concerning osteomyelitis. She was started on broad- spectrum antibiotics including daptomycin and cefepime and she has not had any fever since admission and her leukocytosis resolved. ID team was consulted for further recommendations and to help finalize antibiotic plan. Allergies Allergy/AdvReac Type Severity Reaction Status Date / Time tizanidine AdvReac Intermediate lethargy Verified 10/14/24 23:52 Home Medications Medication Instructions Recorded Confirmed Type cholecalciferol (vitamin D3) 25 2,000 units PO QAM 09/18/18 10/14/24 History mcg (1,000 unit) capsule escitalopram oxalate 20 mg tablet 20 mg PO QAM 09/18/18 10/14/24 History (Lexapro) oxybutynin chloride 15 mg 15 mg PO QAM 09/18/18 10/14/24 History tablet,extended release 24 hr prednisone 10 mg tablet 10 mg PO QAM 09/18/18 10/14/24 History omeprazole 40 mg capsule,delayed 40 mg PO QAM 07/06/21 10/14/24 History release teriflunomide 14 mg tablet 14 mg PO QPM 05/13/22 10/14/24 History (Aubagio) doxycycline hyclate 50 mg capsule 50 mg PO Q2D Rosacea 08/10/22 10/14/24 History melatonin 3 mg tablet 3 mg PO HS 03/05/23 10/14/24 History multivitamin 1 tab PO DAILY 03/05/23 10/14/24 History Baclofen Pump 0 mg SC DIRECTED 08/05/23 10/14/24 History apixaban 5 mg tablet (Eliquis) 5 mg PO BID 02/03/24 10/14/24 History atorvastatin 40 mg tablet 40 mg PO QAM 09/13/24 10/14/24 History duloxetine 30 mg capsule,delayed 30 mg PO DAILY 09/13/24 10/14/24 History release metoprolol succinate 25 mg 25 mg PO BID 10/01/24 10/14/24 History tablet,extended release 24 hr tizanidine 4 mg tablet (Zanaflex) 4 mg PO Q6H Muscle Spasm 10/01/24 10/14/24 History Patient History Medical History Osteoarthritis of right knee Cellulitis of right lower extremity Anemia Cellulitis Acute leg pain Fever History of recent hospitalization 09/2022 [facility] - sepsis History of blood transfusion Limb alert care status left arm Osteoarthritis of right shoulder History of GI bleed Upper GIB (2019) felt 2/2 NSAID use History of non-ST elevation myocardial infarction (NSTEMI) 06/2021 (had heart cath, no stents) Hx of gastric ulcer 02/2021 Anemia Hypertension controlled, stable per pt Surgical History History of removal of Port-a-Cath (02/09/24) Mediport Removal(Right) - Tristin Lazo DO Port-A-Cath in place (09/29/23) A-Port Insertion, right internal jugular(Right) - Tristin aLzo DO S/p reverse total shoulder arthroplasty right: 05/25/22 LMA#4. No postop issues per anesthesia progress note. History of cardiac cath Cardiac cath (07/06/21; [facility]) > Right dominant coronary system. No evidence of aortic stenosis. Normal left ventricular filling pressures. Nonobstructive disease involving the ostial LAD. No evidence of acute coronary syndrome. Approximately 50% ostial stenosis of the LAD. There was some very mild disease at the ostium of the left circumflex. Recommendations: Medical management. History of esophagogastroduodenoscopy (EGD) History of colonoscopy History of tooth extraction Family History Mother Heart disorder Other No family history of adverse response to anesthesia Social History Smoking Status: Former smoker Tobacco Type: Cigarettes packs per day: 1; Cigarettes Per Day: stopped in 1977; Second Hand Exposure: No; Do You Dip or Chew Tobacco: No; Hx Alcohol Use: No Hx Substance Use: No Preferred Language: Lebanese Communication Ability: Effective Communication Ability Comment: Wears glasses Visual Impairment: No Limitations Hearing Ability: Use of Hearing Aid Nuclear Equipment Design Engineer Required: No Beliefs That Will Affect Care: None marital status: / Current Living Situation: Alone Current Living Situation Comment: daughters are an hour away but check on her frequently per pt current occupational status: retired How many Children do You have: 3 Feels Safe at Home: Yes Childhood Exposure to Second-Hand Smoke: Yes Diet: regular caffeine: Yes Assistive Devices: Walker and Wheelchair Review of Systems Negative except for what was mentioned in H&P. Physical Exam Could not be obtained as the visit was performed via TeleMed. Results & Data Vital Signs (Past 12 Hours) Vital Signs Temp Pulse Pulse Resp BP Pulse Ox O2 Del Method 10/19/24 10:47 36.3 C L 89 18 128/92 100 Room Air 10/19/24 07:57 36.6 C 95 H 17 115/77 97 Room Air 10/19/24 07:19 82 10/19/24 03:51 36.5 C 78 16 107/69 96 Room Air Laboratory Results Microbiology: 10/01: Urine culture growing Pseudomonas aeruginosa 10/14: 2 sets of blood culture negative to date 10/16: Right ankle wound superficial culture pending Diagnostic Findings MRI rt foot on 10/15: 1. Focal signal abnormality with enhancement in the distal phalangeal tuft of the great toe, suspicious for osteomyelitis, unchanged from prior study. Clinical correlation for localized tenderness is recommended. 2. Mild soft tissue edema and joint effusions as detailed above, unchanged. MRI Lt foot on 10/15: 1. Subcutaneous soft tissue thickening, edema, fat stranding and fluid collection is seen, predominantly involving the dorsal aspect of the foot, s/o cellulitis. 2. Edema is seen involving the muscles along the plantar aspect of the foot, with minimal fluid in the intermuscular planes.
--- NOTE | 2024-10-19 16:51 | Hospitalist Progress Note ---
Date of Service October 19, 2024 Assessment & Plan (1) Sepsis: (2) Elevated lactic acid level: (3) Hypomagnesemia: (4) Leukocytosis: (5) Complicated UTI (urinary tract infection): (6) Multiple sclerosis: (7) Presence of intrathecal pump: (8) Immunocompromised due to corticosteroids: Plan Kandy Shelby is a 73y/o F with PMHx significant for CAD, HTN, HLD, PAF, PSVT, nonrheumatic aortic valve stenosis, Raynaud's syndrome, history ESBL E. coli UTI, prior DVT with pulmonary emboli s/p IVC filter placement [on Eliquis], GERD with esophagitis, protein-calorie malnutrition, neurogenic bladder, multiple sclerosis [on chronic prednisone + Aubagio-], polyneuropathy with chronic pain on Baclofen pump, tobacco use, anemia of chronic disease [baseline Hgb ~9-10], depression with anxiety, sicca syndrome, history of nonmelanoma skin cancer s/p Mohs operation, left breast cancer s/p radiation + surgery, rosacea [on doxycycline], right foot drop, bilateral lower extremity venous stasis, chronic osteomyelitis of the right fibula, chronic right lateral ankle wound and recur rent right lower extremity cellulitis and recent admit for complicated UTI and sepsis who presented to the ED with significant chills throughout the day. Severe Sepsis Septic Shock Lower Extremity cellulitis Lower extremity swelling patient presenting with subjective fevers, noted to be febrile here with also noted leukocytosis blood pressures overnight trending down lactate elevated and down trended after fluid resuscitation Respiratory panel negative Chest x-ray unremarkable UA this admission unremarkable Bilateral venous Doppler of lower extremities with no noted DVT Blood cultures 2 sets with no growth to date MRI of the bilateral lower extremities (legs and feet) notable for cellulitis, concern for chronic osteomyelitis in right great toe, unchanged. Notes lots of edema. continue with IV cefepime and daptomycin, follow cultures -> dapto switched to IV vanco after discussing w/ID Podiatry consulted for R great toe findings on MRI Per podiatry - Right ankle wound was cleaned and redressed with an adhesive bandage. Wound swab cultures were obtained at bedside. This wound does appear stable without any active purulent drainage or obvious infection. It is possible there is chronic osteomyelitis, though this is not confirmed on MR imaging and the wound does not probe to bone as well. There is further no evidence of bone infection to the right forefoot or toes. Again, this is likely a artifact of the MR imaging or inflammation of the toe, rather than any specif ic osteomyelitis of the phalanx. Because of the chronicity of the ulcer, she Would benefit from continued wound care and likely more sharp debridement of the wound. This would not necessarily need to be surgical but could be performed by the wound care team. A consult will be placed to see the patient met that he team. For now, in order for Bactroban with daily dressing changes was placed. We will plan on following up with her on this admission and can continue to follow up with her outpatient since her prior provider is no longer in the area. Patient is amenable to this at this time. Thank you for the consult, we look forward to helping out long-term with her care. blood pressures have improved-will continue with home metoprolol at this time as well as home steroids Continue to monitor 10/16/2024- septic shock resolved, wbc normal. BP sustaining, started on IV Lasix 20mg daily to help with lower extremity swelling. Re-assess daily Given patient's history consulted w/ infectious disease Per ID I have low concern for active infection in the feet. Her right ankle wound is chronic with likely underlying chronic osteomyelitis, and which does not explain her current presentation. Nevertheless, I would recommend obtaining a wound culture from right lateral malleolus to help guide antibiotic treatment. Meanwhile, If there is no concern for EVELINA, I would recommend shifting IV daptomycin to IV vancomycin. Can continue on IV cefepime as well. I will follow-up on the wound culture from the lateral malleolus and decide on the final antibiotic plan. I clarified w/ Dr. Sierra - bone biopsy and cultx recommended Contacted podiatry - Dr. Gonzalez regarding the need for biopsy Acute on chronic anemia Iron Deficiency anemia Hemoglobin 7.8 on arrival and down trended to 6.9 Status post transfusion of 1 unit of packed RBCs with noted hemoglobin of 8.9 afterwards Suspect dilutional component as well A.m. anemia panel noting low iron levels, s/p IV venofer 200mg on 10/16/24 Started on po ferrous sulfate continue to monitor and transfuse as needed for hgb <8 Holding home Eliquis at this time, consider resuming if Hgb remains above 8 Resume as able Possible Emphysematous Cystitis Pt with recent admission for urosepsis on 10/01 UA from 10/01 grew pseudomonas which was treated Repeat UA this admission with no concern for infection KUB ordered for MRI to be completed, noting possible emphysematous cystitis recommending clinical correlation Consider CT abd/pelvis Pt currently without urinary symptoms Also on Cefepime in regimen noted above for cellulitis Continue to monitor symptoms hypomagnesemia Replete as needed Continue other home meds as ordered CODE STATUS: full code Diet: HH VTE prophylaxis: Patient is on chronic apixaban, currently on hold in setting of need for blood transfusion. [facility] Admission and Anticipated Discharge Date Admission Date: October 14, 2024 Subjective Patient seen in follow up Overall feels well, much improved since admission MRI of feet obtained and pt was seen by podiatry, cultx obtained by podiatry ID consulted and discussed with for further recommendations - recommend bone biopsy and cultx Pt denies any fever, chills, chest pain, shortness of breath, abd. pain, n/v Review of Systems Review of Systems: All systems reviewed & are unremarkable except as noted in Subjective Physical Exam Physical Exam: General: Alert, oriented. No acute distress Skin: erythema to feet and lower extremities bilaterally. bruising noted on face Psych: Appropriate mood and affect HEENT: NC/AT CV: RRR, +murmur Resp: Breath sounds clear bilaterally, no increased effort of breathing Abdomen:Soft, nontender Extremities: edema in lower extremities improved bilaterally as well as erythema Results & Data Results & Data Vital Signs (Past 12 Hours) Vital Signs Temp Pulse Pulse Resp BP Pulse Ox O2 Del Method 10/19/24 16:31 36.8 C 81 17 108/89 97 Room Air 10/19/24 14:13 93 H 10/19/24 10:47 36.3 C L 89 18 128/92 100 Room Air 10/19/24 07:57 36.6 C 95 H 17 115/77 97 Room Air 10/19/24 07:19 82 Laboratory Results Medications Administered Current Inpatient Medications Acetaminophen (Acetaminophen 325 Mg Tab) 650 mg PO Q4H PRN PRN Reason: Pain or Fever Stop: 11/13/24 21:02 Last Admin: 10/15/24 02:21 Dose: 650 mg Al Hydrox/Mg Hydrox/Simethicone (Aluminum/Magnesium Susp 30 Ml Udc) 15 ml PO Q4H PRN PRN Reason: Dyspepsia Stop: 11/13/24 21:02 Apixaban (Apixaban 5 Mg Tablet) 5 mg PO BID [facility] Stop: 11/13/24 21:02 Last Admin: 10/14/24 21:48 Dose: 5 mg Baclofen (Baclofen Pain Pump) 1 pump IT UD [facility] Stop: 11/13/24 21:23 Doxycycline Hyclate (Doxycycline Hyclate 50 Mg Cap) 50 mg PO Q2D [facility] Stop: 10/22/24 08:59 Last Admin: 10/19/24 08:34 Dose: 50 mg Duloxetine HCl (Duloxetine Hcl 30 Mg Cap) 30 mg PO DAILY [facility] Stop: 11/14/24 08:59 Last Admin: 10/19/24 08:32 Dose: 30 mg Escitalopram Oxalate (Escitalopram Oxalate 20 Mg Tab) 20 mg PO QAM [facility] Stop: 11/14/24 08:59 Last Admin: 10/19/24 08:32 Dose: 20 mg Ferrous Sulfate (Ferrous Sulfate 325 Mg Tab) 325 mg PO QAM [facility] Stop: 11/16/24 08:59 Last Admin: 10/19/24 08:32 Dose: 325 mg Furosemide (Furosemide Inj 20 Mg/2 Ml Vial) 20 mg IV DAILY [facility] Stop: 11/15/24 13:44 Last Admin: 10/19/24 08:34 Dose: 20 mg Daptomycin 225 mg/ Syringe 4.5 mls @ 2.25 mls/min IV Q24H [facility]; Protocol Stop: 10/22/24 03:14 Last Admin: 10/19/24 05:32 Dose: 2.25 mls/min Cefepime HCl (Maxipime 2000mg) 2,000 mg in 20 mls @ 5 mls/min IV Q12 [facility]; Protocol Stop: 10/22/24 00:00 Last Admin: 10/19/24 08:51 Dose: 5 mls/min Melatonin (Melatonin 3 Mg Tab) 3 mg PO HS [facility] Stop: 11/13/24 21:02 Last Admin: 10/18/24 20:15 Dose: 3 mg Metoprolol Succinate (Metoprolol Succ 25mg Ext Rel Tab) 25 mg PO BID [facility] Stop: 11/13/24 21:02 Last Admin: 10/19/24 08:32 Dose: 25 mg Multivitamins (Multivitamin Tab) 1 tab PO QAM [facility] Stop: 11/14/24 08:59 Last Admin: 10/19/24 08:32 Dose: 1 tab Mupirocin (Mupirocin 2% Oint 22 Gm Tube) 1 appln EXT DAILY [facility] Stop: 11/16/24 08:59 Last Admin: 10/19/24 08:34 Dose: 1 appln Ondansetron HCl (Ondansetron Inj 2 Mg/Ml 2 Ml Vial) 4 mg IV Q6H PRN PRN Reason: Nausea Stop: 11/13/24 21:02 Oxybutynin Chloride (Oxybutynin Chloride Xl 5 Mg Tabcr) [facility] Stop: 11/14/24 08:59 Last Admin: 10/19/24 08:32 Dose: 15 mg Pantoprazole Sodium (Pantoprazole 40 Mg Tab) 40 mg PO [facility] Stop: 11/14/24 08:59 Last Admin: 10/19/24 08:33 Dose: 40 mg Polyethylene Glycol (Polyethylene (Miralax) 17 Gm Pack) 17 gm PO DAILY PRN PRN Reason: Constipation Stop: 11/13/24 21:02 Prednisone (Prednisone 10 Mg Tablet) 10 mg PO [facility] Stop: 11/14/24 08:59 Last Admin: 10/19/24 08:32 Dose: 10 mg Teriflunomide (Teriflunomide 14 Mg Tab) 14 mg PO QPM [facility] Stop: 11/15/24 20:59 Last Admin: 10/18/24 20:15 Dose: 14 mg Tizanidine HCl (Tizanidine Hcl 4 Mg Tablet) 4 mg PO Q6H [facility] Stop: 11/13/24 20:59 Last Admin: 10/14/24 21:48 Dose: 4 mg Vitamin D (Cholecalciferol 25 Mcg (1000 Units) Tab) 25 [facility]cg [facility] Stop: 11/14/24 08:59 Last Admin: 10/19/24 08:32 Dose: 25 mcg
[2024-10-19 17:28] LABS: Hematocrit (blood only) 33.7 % (37.0-47.0); Hemoglobin 10.9 g/dl (12.0-16.0)
[2024-10-19] MEDS ORDERED: VANCOMYCIN CONSULT ACTIVE PRN (18:00)
[2024-10-19] MEDS: VANCOMYCIN HCL 1,500 MG in SODIUM CHLORIDE 0.9% 500 ML IV SCH (18:43)
[2024-10-20 06:42] LABS: Hemoglobin 9.9 g/dl (12.0-16.0)
[2024-10-20 07:26] LABS: BUN Creatinine Ratio 30.4 (10-20); Calcium 9.3 mg/dl (8.6-10.3); Creatinine Clr Calc Pharmacy 43.7 ml/min; Magnesium 1.8 mg/dl (1.7-2.4); Phosphorus 3.6 mg/dl (2.5-4.9)
--- NOTE | 2024-10-20 11:51 | Pharmacy Report ---
Pharmacy PK ABX Note - Date of Service October 20, 2024 - Assessment and Plan Assessment 73 year old F receiving vancomycin (switched from dapto per ID), cefepime for treatment of chronic osteo. Pertinent microbiologic data includes: wound culture preliminarily growing moderate counts of mixed probable skin microbiota, blood culture now growth. Plan Vancomycin * Loading dose: 1500 mg IV x 1 (already administered) * Maintenance dose: 1250 mg IV every 24 hours * Regimen is predicted to achieve target AUC/STEPHEN of 400-600 mg/L.hr * Level will be ordered in the next 1-2 days Pharmacy will continue to follow and will adjust dose/frequency as necessary. Thank you. Pharmacy has transitioned to AUC monitoring for vancomycin. AUC/STEPHEN is the preferred PK/PD target and is associated with decreased risk of nephrotoxicity compared to traditional trough targets.
[2024-10-20] MEDS: VANCOMYCIN HCL 1,250 MG in SODIUM CHLORIDE 0.9% 250 ML IV SCH (18:09)
--- NOTE | 2024-10-20 20:11 | Hospitalist Progress Note ---
Date of Service October 20, 2024 Assessment & Plan (1) Sepsis: (2) Elevated lactic acid level: (3) Hypomagnesemia: (4) Leukocytosis: (5) Complicated UTI (urinary tract infection): (6) Multiple sclerosis: (7) Presence of intrathecal pump: (8) Immunocompromised due to corticosteroids: Plan Kandy Shelby is a 73y/o F with PMHx significant for CAD, HTN, HLD, PAF, PSVT, nonrheumatic aortic valve stenosis, Raynaud's syndrome, history ESBL E. coli UTI, prior DVT with pulmonary emboli s/p IVC filter placement [on Eliquis], GERD with esophagitis, protein-calorie malnutrition, neurogenic bladder, multiple sclerosis [on chronic prednisone + Aubagio-], polyneuropathy with chronic pain on Baclofen pump, tobacco use, anemia of chronic disease [baseline Hgb ~9-10], depression with anxiety, sicca syndrome, history of nonmelanoma skin cancer s/p Mohs operation, left breast cancer s/p radiation + surgery, rosacea [on doxycycline], right foot drop, bilateral lower extremity venous stasis, chronic osteomyelitis of the right fibula, chronic right lateral ankle wound and recur rent right lower extremity cellulitis and recent admit for complicated UTI and sepsis who presented to the ED with significant chills throughout the day. Severe Sepsis Septic Shock Lower Extremity cellulitis Lower extremity swelling patient presenting with subjective fevers, noted to be febrile here with also noted leukocytosis blood pressures overnight trending down lactate elevated and down trended after fluid resuscitation Respiratory panel negative Chest x-ray unremarkable UA this admission unremarkable Bilateral venous Doppler of lower extremities with no noted DVT Blood cultures 2 sets with no growth to date MRI of the bilateral lower extremities (legs and feet) notable for cellulitis, concern for chronic osteomyelitis in right great toe, unchanged. Notes lots of edema. continue with IV cefepime and daptomycin, follow cultures -> dapto switched to IV vanco after discussing w/ID Podiatry consulted for R great toe findings on MRI Per podiatry - Right ankle wound was cleaned and redressed with an adhesive bandage. Wound swab cultures were obtained at bedside. This wound does appear stable without any active purulent drainage or obvious infection. It is possible there is chronic osteomyelitis, though this is not confirmed on MR imaging and the wound does not probe to bone as well. There is further no evidence of bone infection to the right forefoot or toes. Again, this is likely a artifact of the MR imaging or inflammation of the toe, rather than any specif ic osteomyelitis of the phalanx. Because of the chronicity of the ulcer, she Would benefit from continued wound care and likely more sharp debridement of the wound. This would not necessarily need to be surgical but could be performed by the wound care team. A consult will be placed to see the patient met that he team. For now, in order for Bactroban with daily dressing changes was placed. We will plan on following up with her on this admission and can continue to follow up with her outpatient since her prior provider is no longer in the area. Patient is amenable to this at this time. Thank you for the consult, we look forward to helping out long-term with her care. blood pressures have improved-will continue with home metoprolol at this time as well as home steroids Continue to monitor 10/16/2024- septic shock resolved, wbc normal. BP sustaining, started on IV Lasix 20mg daily to help with lower extremity swelling. Re-assess daily Given patient's history consulted w/ infectious disease Per ID I have low concern for active infection in the feet. Her right ankle wound is chronic with likely underlying chronic osteomyelitis, and which does not explain her current presentation. Nevertheless, I would recommend obtaining a wound culture from right lateral malleolus to help guide antibiotic treatment. Meanwhile, If there is no concern for EVELINA, I would recommend shifting IV daptomycin to IV vancomycin. Can continue on IV cefepime as well. I will follow-up on the wound culture from the lateral malleolus and decide on the final antibiotic plan. I clarified w/ Dr. Sierra - bone biopsy and cultx recommended Contacted podiatry - Dr. Gonzalez regarding the need for biopsy Acute on chronic anemia Iron Deficiency anemia Hemoglobin 7.8 on arrival and down trended to 6.9 Status post transfusion of 1 unit of packed RBCs with noted hemoglobin of 8.9 afterwards Suspect dilutional component as well A.m. anemia panel noting low iron levels, s/p IV venofer 200mg on 10/16/24 Started on po ferrous sulfate continue to monitor and transfuse as needed for hgb <8 Holding home Eliquis at this time, consider resuming if Hgb remains above 8 Resume as able Possible Emphysematous Cystitis Pt with recent admission for urosepsis on 10/01 UA from 10/01 grew pseudomonas which was treated Repeat UA this admission with no concern for infection KUB ordered for MRI to be completed, noting possible emphysematous cystitis recommending clinical correlation Consider CT abd/pelvis Pt currently without urinary symptoms Also on Cefepime in regimen noted above for cellulitis Continue to monitor symptoms hypomagnesemia Replete as needed Continue other home meds as ordered CODE STATUS: full code Diet: HH VTE prophylaxis: Patient is on chronic apixaban, currently on hold in setting of need for blood transfusion. [facility] [place] Admission and Anticipated Discharge Date Admission Date: October 14, 2024 Subjective Patient seen in follow up Overall feels well, much improved since admission MRI of feet obtained and pt was seen by podiatry, swab cultx obtained by podiatry - prob. skin carmel ID consulted and discussed with for further recommendations - recommend bone biopsy and cultx Pt denies any fever, chills, chest pain, shortness of breath, abd. pain, n/v Pt's daughter updated at the bedside Review of Systems Review of Systems: All systems reviewed & are unremarkable except as noted in Subjective Physical Exam Physical Exam: General: Alert, oriented. No acute distress Skin: erythema to feet and lower extremities bilaterally. bruising noted on face Psych: Appropriate mood and affect HEENT: NC/AT CV: RRR, +murmur Resp: Breath sounds clear bilaterally, no increased effort of breathing Abdomen:Soft, nontender Extremities: edema in lower extremities improved bilaterally as well as erythema Results & Data Results & Data Vital Signs (Past 12 Hours) Vital Signs Temp Pulse Pulse Resp BP Pulse Ox O2 Del Method 10/20/24 19:27 36.6 C 103 H 18 140/94 95 Room Air 10/20/24 16:13 91 H 10/20/24 15:59 37.0 C 95 H 16 122/82 95 Room Air 10/20/24 10:35 36.6 C 81 16 123/90 92 Room Air Laboratory Results 10/20/24 Range/Units 06:18 Hgb 9.9 L (12.0-16.0) g/dl Hct 31.0 L (37.0-47.0) % Sodium 142 (136-145) mmol/L Potassium 4.0 (3.5-5.1) mmol/L Chloride 102 (98-107) mmol/L Carbon Dioxide 33 H (21-32) mmol/L Anion Gap 7 (3-11) BUN 31 H (6-23) mg/dl Creatinine 1.02 (0.6-1.2) mg/dl Est Cr Clr Drug Dosing 43.7 ml/min eGFR 58.82 BUN/Creatinine Ratio 30.4 H (10-20) Glucose 91 (70-99(Fasting)) mg/dl Calcium 9.3 (8.6-10.3) mg/dl Phosphorus 3.6 (2.5-4.9) mg/dl Magnesium 1.8 (1.7-2.4) mg/dl Medications Administered Current Inpatient Medications Acetaminophen (Acetaminophen 325 Mg Tab) 650 mg PO Q4H PRN PRN Reason: Pain or Fever Stop: 11/13/24 21:02 Last Admin: 10/15/24 02:21 Dose: 650 mg Al Hydrox/Mg Hydrox/Simethicone (Aluminum/Magnesium Susp 30 Ml Udc) 15 ml PO Q4H PRN PRN Reason: Dyspepsia Stop: 11/13/24 21:02 Apixaban (Apixaban 5 Mg Tablet) 5 mg PO BID [facility] Stop: 11/13/24 21:02 Last Admin: 10/20/24 19:37 Dose: 5 mg Baclofen (Baclofen Pain Pump) 1 pump IT UD [facility] Stop: 11/13/24 21:23 Doxycycline Hyclate (Doxycycline Hyclate 50 Mg Cap) 50 mg PO Q2D [facility] Stop: 10/22/24 08:59 Last Admin: 10/19/24 08:34 Dose: 50 mg Duloxetine HCl (Duloxetine Hcl 30 Mg Cap) 30 mg PO DAILY [facility] Stop: 11/14/24 08:59 Last Admin: 10/20/24 08:52 Dose: 30 mg Escitalopram Oxalate (Escitalopram Oxalate 20 Mg Tab) 20 mg PO QAM [facility] Stop: 11/14/24 08:59 Last Admin: 10/20/24 08:51 Dose: 20 mg Ferrous Sulfate (Ferrous Sulfate 325 Mg Tab) 325 mg PO QAM [facility] Stop: 11/16/24 08:59 Last Admin: 10/20/24 08:52 Dose: 325 mg Furosemide (Furosemide Inj 20 Mg/2 Ml Vial) 20 mg IV DAILY [facility] Stop: 11/15/24 13:44 Last Admin: 10/20/24 08:52 Dose: 20 mg Cefepime HCl (Maxipime 2000mg) 2,000 mg in 20 mls @ 5 mls/min IV Q12 [facility]; Protocol Stop: 10/22/24 00:00 Last Admin: 10/20/24 19:41 Dose: 5 mls/min Vancomycin HCl 1,250 mg/ (Sodium Chloride) 275 mls @ 200 mls/hr IV Q24H [facility] Stop: 12/01/24 17:59 Last Infusion: 10/20/24 19:32 Dose: Infused Melatonin (Melatonin 3 Mg Tab) 3 mg PO HS [facility] Stop: 11/13/24 21:02 Last Admin: 10/20/24 19:37 Dose: 3 mg Metoprolol Succinate (Metoprolol Succ 25mg Ext Rel Tab) 25 mg PO BID [facility] Stop: 11/13/24 21:02 Last Admin: 10/20/24 19:37 Dose: 25 mg Miscellaneous Information (Vancomycin Consult Active) 1 each N/A UD PRN PRN Reason: Consult Stop: 11/18/24 17:59 [facility]ivit[facility] ([facility]amin Tab) [facility] [place]: 11/14/24 08:59 Last Admin: 10/20/24 08:52 Dose: 1 tab Mupirocin (Mupirocin 2% Oint 22 Gm Tube) 1 appln EXT DAILY [facility] Stop: 11/16/24 08:59 Last Admin: 10/20/24 08:53 Dose: 1 appln Ondansetron HCl (Ondansetron Inj 2 Mg/Ml 2 Ml Vial) 4 mg IV Q6H PRN PRN Reason: Nausea Stop: 11/13/24 21:02 Oxybutynin Chloride (Oxybutynin Chloride Xl 5 Mg Tabcr) [facility] [place] Stop: 11/14/24 08:59 Last Admin: 10/20/24 08:51 Dose: 15 mg Pantoprazole Sodium (Pantoprazole 40 Mg Tab) [facility] [place] 11/14/24 08:59 Last Admin: 10/20/24 08:52 Dose: 40 mg Polyethylene Glycol (Polyethylene (Miralax) 17 Gm Pack) 17 gm PO DAILY PRN PRN Reason: Constipation Stop: 11/13/24 21:02 Prednisone (Prednisone 10 Mg Tablet) [facility] [place] Stop: 11/14/24 08:59 Last Admin: 10/20/24 08:51 Dose: 10 mg Teriflunomide (Teriflunomide 14 Mg Tab) 14 mg PO QPM [facility] Stop: 11/15/24 20:59 Last Admin: 10/20/24 19:32 Dose: 14 mg Tizanidine HCl (Tizanidine Hcl 4 Mg Tablet) 4 mg PO Q6H [facility] Stop: 11/13/24 20:59 Last Admin: 10/14/24 21:48 Dose: 4 mg Vitamin D (Cholecalciferol 25 Mcg (1000 Units) Tab) 25 mcg PO QAM [facility] Stop: 11/14/24 08:59 Last Admin: 10/20/24 08:51 Dose: 25 mcg
[2024-10-21 13:03] LABS: Creatinine Clr Calc Pharmacy 40.1 ml/min
[2024-10-21] MEDS: VANCOMYCIN HCL 1,000 MG in SODIUM CHLORIDE 0.9% 250 ML IV SCH (18:25)
--- NOTE | 2024-10-21 18:36 | Hospitalist Progress Note ---
Date of Service October 21, 2024 Assessment & Plan (1) Sepsis: (2) Elevated lactic acid level: (3) Hypomagnesemia: (4) Leukocytosis: (5) Complicated UTI (urinary tract infection): (6) Multiple sclerosis: (7) Presence of intrathecal pump: (8) Immunocompromised due to corticosteroids: Plan Kandy Shelby is a 73y/o F with PMHx significant for CAD, HTN, HLD, PAF, PSVT, nonrheumatic aortic valve stenosis, Raynaud's syndrome, history ESBL E. coli UTI, prior DVT with pulmonary emboli s/p IVC filter placement [on Eliquis], GERD with esophagitis, protein-calorie malnutrition, neurogenic bladder, multiple sclerosis [on chronic prednisone + Aubagio-], polyneuropathy with chronic pain on Baclofen pump, tobacco use, anemia of chronic disease [baseline Hgb ~9-10], depression with anxiety, sicca syndrome, history of nonmelanoma skin cancer s/p Mohs operation, left breast cancer s/p radiation + surgery, rosacea [on doxycycline], right foot drop, bilateral lower extremity venous stasis, chronic osteomyelitis of the right fibula, chronic right lateral ankle wound and recur rent right lower extremity cellulitis and recent admit for complicated UTI and sepsis who presented to the ED with significant chills throughout the day. Severe Sepsis Septic Shock Lower Extremity cellulitis Lower extremity swelling patient presenting with subjective fevers, noted to be febrile here with also noted leukocytosis blood pressures overnight trending down lactate elevated and down trended after fluid resuscitation Respiratory panel negative Chest x-ray unremarkable UA this admission unremarkable Bilateral venous Doppler of lower extremities with no noted DVT Blood cultures 2 sets with no growth to date MRI of the bilateral lower extremities (legs and feet) notable for cellulitis, concern for chronic osteomyelitis in right great toe, unchanged. Notes lots of edema. continue with IV cefepime and daptomycin, follow cultures -> dapto switched to IV vanco after discussing w/ID Podiatry consulted for R great toe findings on MRI Per podiatry - Right ankle wound was cleaned and redressed with an adhesive bandage. Wound swab cultures were obtained at bedside. This wound does appear stable without any active purulent drainage or obvious infection. It is possible there is chronic osteomyelitis, though this is not confirmed on MR imaging and the wound does not probe to bone as well. There is further no evidence of bone infection to the right forefoot or toes. Again, this is likely a artifact of the MR imaging or inflammation of the toe, rather than any specifi c osteomyelitis of the phalanx. Because of the chronicity of the ulcer, she Would benefit from continued wound care and likely more sharp debridement of the wound. This would not necessarily need to be surgical but could be performed by the wound care team. A consult will be placed to see the patient met that he team. For now, in order for Bactroban with daily dressing changes was placed. We will plan on following up with her on this admission and can continue to follow up with her outpatient since her prior provider is no longer in the area. Patient is amenable to this at this time. Thank you for the consult, we look forward to helping out long-term with her care. blood pressures have improved-will continue with home metoprolol at this time as well as home steroids Continue to monitor 10/16/2024- septic shock resolved, wbc normal. BP sustaining, started on IV Lasix 20mg daily to help with lower extremity swelling. Re-assess daily Given patient's history consulted w/ infectious disease Per ID I have low concern for active infection in the feet. Her right ankle wound is chronic with likely underlying chronic osteomyelitis, and which does not explain her current presentation. Nevertheless, I would recommend obtaining a wound culture from right lateral malleolus to help guide antibiotic treatment. Meanwhile, If there is no concern for EVELINA, I would recommend shifting IV daptomycin to IV vancomycin. Can continue on IV cefepime as well. I will follow-up on the wound culture from the lateral malleolus and decide on the final antibiotic plan. I clarified w/ Dr. Sierra - bone biopsy and cultx recommended Contacted podiatry - Dr. Gonzalez regarding the need for biopsy -> plan for b iopsy on Tuesday (10/22), pt will be made NPO after MN Acute on chronic anemia Iron Deficiency anemia Hemoglobin 7.8 on arrival and down trended to 6.9 Status post transfusion of 1 unit of packed RBCs with noted hemoglobin of 8.9 afterwards Suspect dilutional component as well A.m. anemia panel noting low iron levels, s/p IV venofer 200mg on 10/16/24 Started on po ferrous sulfate continue to monitor and transfuse as needed for hgb <8 Holding home Eliquis at this time, consider resuming if Hgb remains above 8 Resume as able Possible Emphysematous Cystitis Pt with recent admission for urosepsis on 10/01 UA from 10/01 grew pseudomonas which was treated Repeat UA this admission with no concern for infection KUB ordered for MRI to be completed, noting possible emphysematous cystitis recommending clinical correlation Consider CT abd/pelvis Pt currently without urinary symptoms Also on Cefepime in regimen noted above for cellulitis Continue to monitor symptoms hypomagnesemia Replete as needed Continue other home meds as ordered CODE STATUS: full code Diet: HH VTE prophylaxis: Patient is on chronic apixaban, currently on hold in setting of need for blood transfusion. SCDs Admission and Anticipated Discharge Date Admission Date: October 14, 2024 Subjective Patient seen in follow up Overall feels well, much improved since admission MRI of feet obtained and pt was seen by podiatry, swab cultx obtained by podiatry - prob. skin carmel ID consulted and discussed with for further recommendations - recommend bone biopsy and cultx - discussed w/ podiatry - plan for biopsy tmrw Pt denies any fever, chills, chest pain, shortness of breath, abd. pain, n/v Review of Systems Review of Systems: All systems reviewed & are unremarkable except as noted in Subjective Physical Exam Physical Exam: General: Alert, oriented. No acute distress Skin: erythema to feet and lower extremities bilaterally. bruising noted on face Psych: Appropriate mood and affect HEENT: NC/AT CV: RRR, +murmur Resp: Breath sounds clear bilaterally, no increased effort of breathing Abdomen:Soft, nontender Extremities: edema in lower extremities improved bilaterally as well as erythema Results & Data Results & Data Vital Signs (Past 12 Hours) Vital Signs Temp Pulse Pulse Resp BP Pulse Ox O2 Del Method 10/21/24 15:17 36.5 C 90 16 105/77 95 Room Air 10/21/24 13:53 96 H 10/21/24 11:33 36.5 C 84 18 142/98 H 95 Room Air 10/21/24 07:29 36.5 C 86 16 132/77 94 Room Air 10/21/24 07:06 79 Laboratory Results 10/21/24 Range/Units 12:22 Creatinine 1.11 (0.6-1.2) mg/dl Est Cr Clr Drug Dosing 40.1 ml/min eGFR 53.14 Medications Administered Current Inpatient Medications Acetaminophen (Acetaminophen 325 Mg Tab) 650 mg PO Q4H PRN PRN Reason: Pain or Fever Stop: 11/13/24 21:02 Last Admin: 10/15/24 02:21 Dose: 650 mg Al Hydrox/Mg Hydrox/Simethicone (Aluminum/Magnesium Susp 30 Ml Udc) 15 ml PO Q4H PRN PRN Reason: Dyspepsia Stop: 11/13/24 21:02 Apixaban (Apixaban 5 Mg Tablet) 5 mg PO BID [facility] Stop: 11/13/24 21:02 Last Admin: 10/21/24 08:52 Dose: 5 mg Baclofen (Baclofen Pain Pump) 1 pump IT UD [facility] Stop: 11/13/24 21:23 Doxycycline Hyclate (Doxycycline Hyclate 50 Mg Cap) 50 mg PO Q2D [facility] Stop: 10/22/24 08:59 Last Admin: 10/21/24 08:53 Dose: 50 mg Duloxetine HCl (Duloxetine Hcl 30 Mg Cap) 30 mg PO DAILY [facility] Stop: 11/14/24 08:59 Last Admin: 10/21/24 08:52 Dose: 30 mg Escitalopram Oxalate (Escitalopram Oxalate 20 Mg Tab) 20 mg PO QAM [facility] Stop: 11/14/24 08:59 Last Admin: 10/21/24 08:52 Dose: 20 mg Ferrous Sulfate (Ferrous Sulfate 325 Mg Tab) 325 mg PO QAM [facility] Stop: 11/16/24 08:59 Last Admin: 10/21/24 08:52 Dose: 325 mg Cefepime HCl (Maxipime 2000mg) 2,000 mg in 20 mls @ 5 mls/min IV Q12 [facility]; Protocol Stop: 10/28/24 23:59 Last Admin: 10/21/24 08:51 Dose: 5 mls/min Vancomycin HCl 1,000 mg/ (Sodium Chloride) 270 mls @ 200 mls/hr IV Q24H [facility] Stop: 12/01/24 17:59 Last Admin: 10/21/24 18:25 Dose: 200 mls/hr Melatonin (Melatonin 3 Mg Tab) 3 mg PO HS [facility] Stop: 11/13/24 21:02 Last Admin: 10/20/24 19:37 Dose: 3 mg Metoprolol Succinate (Metoprolol Succ 25mg Ext Rel Tab) 25 mg PO BID [facility] Stop: 11/13/24 21:02 Last Admin: 10/21/24 08:52 Dose: 25 mg Miscellaneous Information (Vancomycin Consult Active) 1 each N/A UD PRN PRN Reason: Consult Stop: 11/18/24 17:59 Multivitamins (Multivitamin Tab) 1 tab PO QAM [facility] Stop: 11/14/24 08:59 Last Admin: 10/21/24 08:52 Dose: 1 tab Mupirocin (Mupirocin 2% Oint 22 Gm Tube) 1 appln EXT DAILY [facility] Stop: 11/16/24 08:59 Last Admin: 10/21/24 08:53 Dose: 1 appln Ondansetron HCl (Ondansetron Inj 2 Mg/Ml 2 Ml Vial) 4 mg IV Q6H PRN PRN Reason: Nausea Stop: 11/13/24 21:02 Oxybutynin Chloride (Oxybutynin Chloride Xl 5 Mg Tabcr) [place] Stop: 11/14/24 08:59 Last Admin: 10/21/24 08:52 Dose: 15 mg Pantoprazole Sodium (Pantoprazole 40 Mg Tab) 40 mg [place] Stop: 11/14/24 08:59 Last Admin: 10/21/24 08:53 Dose: 40 mg Polyethylene Glycol (Polyethylene (Miralax) 17 Gm Pack) 17 gm PO DAILY PRN PRN Reason: Constipation Stop: 11/13/24 21:02 Prednisone (Prednisone 10 Mg Tablet) 10 mg PO QAM [facility] Stop: 11/14/24 08:59 Last Admin: 10/21/24 08:52 Dose: 10 mg Teriflunomide (Teriflunomide 14 Mg Tab) 14 mg PO QPM [facility] Stop: 11/15/24 20:59 Last Admin: 10/20/24 19:32 Dose: 14 mg Tizanidine HCl (Tizanidine Hcl 4 Mg Tablet) 4 mg PO Q6H PRN PRN Reason: muscle spasm Stop: 11/13/24 20:59 Vitamin D (Cholecalciferol 25 Mcg (1000 Units) Tab) 25 mcg PO QAM [facility] Stop: 11/14/24 08:59 Last Admin: 10/21/24 08:51 Dose: 25 mcg
[2024-10-21] MEDS: tiZANidine HCL 4 MG TABLET PO PRN (19:29)
--- NOTE | 2024-10-22 07:37 | Hospitalist Progress Note ---
Date of Service October 22, 2024 Assessment & Plan (1) Sepsis: (2) Elevated lactic acid level: (3) Hypomagnesemia: (4) Leukocytosis: (5) Complicated UTI (urinary tract infection): (6) Multiple sclerosis: (7) Presence of intrathecal pump: (8) Immunocompromised due to corticosteroids: Plan Kandy Shelby is a 73y/o F with PMHx significant for CAD, HTN, HLD, PAF, PSVT, nonrheumatic aortic valve stenosis, Raynaud's syndrome, history ESBL E. coli UTI, prior DVT with pulmonary emboli s/p IVC filter placement [on Eliquis], GERD with esophagitis, protein-calorie malnutrition, neurogenic bladder, multiple sclerosis [on chronic prednisone + Aubagio-], polyneuropathy with chronic pain on Baclofen pump, tobacco use, anemia of chronic disease [baseline Hgb ~9-10], depression with anxiety, sicca syndrome, history of nonmelanoma skin cancer s/p Mohs operation, left breast cancer s/p radiation + surgery, rosacea [on doxycycline], right foot drop, bilateral lower extremity venous stasis, chronic osteomyelitis of the right fibula, chronic right lateral ankle wound and recur rent right lower extremity cellulitis and recent admit for complicated UTI and sepsis who presented to the ED with significant chills throughout the day. Severe Sepsis Septic Shock Lower Extremity cellulitis Lower extremity swelling patient presenting with subjective fevers, noted to be febrile here with also noted leukocytosis blood pressures overnight trending down lactate elevated and down trended after fluid resuscitation Respiratory panel negative Chest x-ray unremarkable UA this admission unremarkable Bilateral venous Doppler of lower extremities with no noted DVT Blood cultures 2 sets with no growth to date MRI of the bilateral lower extremities (legs and feet) notable for cellulitis, concern for chronic osteomyelitis in right great toe, unchanged. Notes lots of edema. continue with IV cefepime and daptomycin, follow cultures -> dapto switched to IV vanco after discussing w/ID Podiatry consulted for R great toe findings on MRI Per podiatry - Right ankle wound was cleaned and redressed with an adhesive bandage. Wound swab cultures were obtained at bedside. This wound does appear stable without any active purulent drainage or obvious infection. It is possible there is chronic osteomyelitis, though this is not confirmed on MR imaging and the wound does not probe to bone as well. There is further no evidence of bone infection to the right forefoot or toes. Again, this is likely a artifact of the MR imaging or inflammation of the toe, rather than any specifi c osteomyelitis of the phalanx. Because of the chronicity of the ulcer, she Would benefit from continued wound care and likely more sharp debridement of the wound. This would not necessarily need to be surgical but could be performed by the wound care team. A consult will be placed to see the patient met that he team. For now, in order for Bactroban with daily dressing changes was placed. We will plan on following up with her on this admission and can continue to follow up with her outpatient since her prior provider is no longer in the area. Patient is amenable to this at this time. Thank you for the consult, we look forward to helping out long-term with her care. blood pressures have improved-will continue with home metoprolol at this time as well as home steroids Continue to monitor 10/16/2024- septic shock resolved, wbc normal. BP sustaining, started on IV Lasix 20mg daily to help with lower extremity swelling. Re-assess daily Given patient's history consulted w/ infectious disease Per ID I have low concern for active infection in the feet. Her right ankle wound is chronic with likely underlying chronic osteomyelitis, and which does not explain her current presentation. Nevertheless, I would recommend obtaining a wound culture from right lateral malleolus to help guide antibiotic treatment. Meanwhile, If there is no concern for EVELINA, I would recommend shifting IV daptomycin to IV vancomycin. Can continue on IV cefepime as well. I will follow-up on the wound culture from the lateral malleolus and decide on the final antibiotic plan. I clarified w/ Dr. Sierra - bone biopsy and cultx recommended Contacted podiatry - Dr. Gonzalez regarding the need for biopsy -> plan for b iopsy today (10/22) In addition - pt reports she had a wound cultx w/ Dr. Velasco (outpt tool keeper)- that was positive for Pseudomonas - will obtain the med. record. Also notified ID - Dr. Sierra Acute on chronic anemia Iron Deficiency anemia Hemoglobin 7.8 on arrival and down trended to 6.9 Status post transfusion of 1 unit of packed RBCs with noted hemoglobin of 8.9 afterwards Suspect dilutional component as well A.m. anemia panel noting low iron levels, s/p IV venofer 200mg on 10/16/24 Started on po ferrous sulfate continue to monitor and transfuse as needed for hgb <8 Holding home Eliquis at this time, consider resuming after her biopsy Resume as able Possible Emphysematous Cystitis Pt with recent admission for urosepsis on 10/01 UA from 10/01 grew pseudomonas which was treated Repeat UA this admission with no concern for infection KUB ordered for MRI to be completed, noting possible emphysematous cystitis recommending clinical correlation Consider CT abd/pelvis Pt currently without urinary symptoms Also on Cefepime in regimen noted above for cellulitis Continue to monitor symptoms hypomagnesemia Replete as needed Continue other home meds as ordered CODE STATUS: full code Diet: HH VTE prophylaxis: Patient is on chronic apixaban, currently on hold in setting of need for blood transfusion. [facility] [place] and Anticipated Discharge Date Admission Date: October 14, 2024 Subjective Patient seen in follow up Overall feels well, much improved since admission MRI of feet obtained and pt was seen by podiatry, swab cultx obtained by podiatry - prob. skin carmel ID consulted and discussed with for further recommendations - recommend bone biopsy and cultx - discussed w/ podiatry - plan for biopsy today In addition - pt reports she had a wound cultx w/ Dr. Velasco (outpt poditrist)- that was positive for Pseudomonas - will obtain the med. record. Also notified ID - Dr. Sierra Pt denies any fever, chills, chest pain, shortness of breath, abd. pain, n/v Review of Systems Review of Systems: All systems reviewed & are unremarkable except as noted in Subjective Physical Exam Physical Exam: General: Alert, oriented. No acute distress Skin: erythema to feet and lower extremities bilaterally. bruising noted on face Psych: Appropriate mood and affect HEENT: NC/AT CV: RRR, +murmur Resp: Breath sounds clear bilaterally, no increased effort of breathing Abdomen:Soft, nontender Extremities: edema in lower extremities improved bilaterally as well as erythema Results & Data Results & Data Vital Signs (Past 12 Hours) Vital Signs Temp Pulse Pulse Resp BP Pulse Ox O2 Del Method 10/22/24 03:50 36.5 C 76 16 111/72 96 Room Air 10/22/24 00:00 36.5 C 76 17 117/74 97 Room Air 10/21/24 22:00 83 10/21/24 20:08 36.4 C L 87 17 134/81 95 Room Air Medications Administered Current Inpatient Medications Acetaminophen (Acetaminophen 325 Mg Tab) 650 mg PO Q4H PRN PRN Reason: Pain or Fever Stop: 11/13/24 21:02 Last Admin: 10/15/24 02:21 Dose: 650 mg Al Hydrox/Mg Hydrox/Simethicone (Aluminum/Magnesium Susp 30 Ml Udc) 15 ml PO Q4H PRN PRN Reason: Dyspepsia Stop: 11/13/24 21:02 Apixaban (Apixaban 5 Mg Tablet) 5 mg PO BID MICHELLE Stop: 11/13/24 21:02 Last Admin: 10/21/24 20:31 Dose: 5 mg Baclofen (Baclofen Pain Pump) 1 pump IT UD [facility] Stop: 11/13/24 21:23 Doxycycline Hyclate (Doxycycline Hyclate 50 Mg Cap) 50 mg PO Q2D MICHELLE Stop: 10/22/24 08:59 Last Admin: 10/21/24 08:53 Dose: 50 mg Duloxetine HCl (Duloxetine Hcl 30 Mg Cap) 30 mg PO DAILY MICHELLE Stop: 11/14/24 08:59 Last Admin: 10/21/24 08:52 Dose: 30 mg Escitalopram Oxalate (Escitalopram Oxalate 20 Mg Tab) 20 mg PO QAM MICHELLE Stop: 11/14/24 08:59 Last Admin: 10/21/24 08:52 Dose: 20 mg Ferrous Sulfate (Ferrous Sulfate 325 Mg Tab) 325 mg PO QAM MICHELLE Stop: 11/16/24 08:59 Last Admin: 10/21/24 08:52 Dose: 325 mg Cefepime HCl (Maxipime 2000mg) 2,000 mg in 20 mls @ 5 mls/min IV Q12 MICHELLE; Pro tocol Stop: 10/28/24 23:59 Last Admin: 10/21/24 20:34 Dose: 5 mls/min Vancomycin HCl 1,000 mg/ (Sodium Chloride) 270 mls @ 200 mls/hr IV Q24H MICHELLE Stop: 12/01/24 17:59 Last Infusion: 10/21/24 20:00 Dose: Infused Melatonin (Melatonin 3 Mg Tab) 3 mg PO HS MICHELLE Stop: 11/13/24 21:02 Last Admin: 10/21/24 20:31 Dose: 3 mg Metoprolol Succinate (Metoprolol Succ 25mg Ext Rel Tab) 25 mg PO BID [facility] Stop: 11/13/24 21:02 Last Admin: 10/21/24 20:31 Dose: 25 mg Miscellaneous Information (Vancomycin Consult Active) 1 each N/A UD PRN PRN Reason: Consult Stop: 11/18/24 17:59 Multivitamins (Multivitamin Tab) 1 tab PO QAM [facility] Stop: 11/14/24 08:59 Last Admin: 10/21/24 08:52 Dose: 1 tab Mupirocin (Mupirocin 2% Oint 22 Gm Tube) 1 appln EXT DAILY MICHELLE Stop: 11/16/24 08:59 Last Admin: 10/21/24 08:53 Dose: 1 appln Ondansetron HCl (Ondansetron Inj 2 Mg/Ml 2 Ml Vial) 4 mg IV Q6H PRN PRN Reason: Nausea Stop: 11/13/24 21:02 Oxybutynin Chloride (Oxybutynin Chloride Xl 5 Mg Tabcr) 15 mg PO QAM [facility] Stop: 11/14/24 08:59 Last Admin: 10/21/24 08:52 Dose: 15 mg Pantoprazole Sodium (Pantoprazole 40 Mg Tab) 40 mg PO QAM [facility] Stop: 11/14/24 08:59 Last Admin: 10/21/24 08:53 Dose: 40 mg Polyethylene Glycol (Polyethylene (Miralax) 17 Gm Pack) 17 gm PO DAILY PRN PRN Reason: Constipation Stop: 11/13/24 21:02 Prednisone (Prednisone 10 Mg Tablet) 10 mg PO QAM [facility] Stop: 11/14/24 08:59 Last Admin: 10/21/24 08:52 Dose: 10 mg Teriflunomide (Teriflunomide 14 Mg Tab) 14 mg PO QPM MICHELLE Stop: 11/15/24 20:59 Last Admin: 10/21/24 20:32 Dose: 14 mg Tizanidine HCl (Tizanidine Hcl 4 Mg Tablet) 4 mg PO Q6H PRN PRN Reason: muscle spasm Stop: 11/13/24 20:59 Last Admin: 10/21/24 19:29 Dose: 4 mg Vitamin D (Cholecalciferol 25 Mcg (1000 Units) Tab) 25 mcg PO QAM MICHELLE Stop: 11/14/24 08:59 Last Admin: 10/21/24 08:51 Dose: 25 mcg
[2024-10-22 08:19] LABS: Hematocrit (blood only) 31.4 % (37.0-47.0); Hemoglobin 9.8 g/dl (12.0-16.0); Mean Corpuscular Hgb Conc 31.2 g/dL (32.0-36.0); Mean Corpuscular Volume 89.7 fL (80.0-100.0); Mean Platelet Volume 10.3 fL (9.4-12.4); Platelet Count 281 K/uL (130-400); RDW Coefficient of Variation 18.6 % (11.5-14.5); RDW Standard Deviation 60.1 fL (36.4-46.3)
[2024-10-22 08:41] LABS: Calcium 9.3 mg/dl (8.6-10.3); Magnesium 1.9 mg/dl (1.7-2.4); Phosphorus 3.4 mg/dl (2.5-4.9); Potassium 3.5 mmol/L (3.5-5.1)
--- NOTE | 2024-10-22 11:35 | Pharmacy Report ---
Pharmacy PK ABX Note - Date of Service October 22, 2024 - Assessment and Plan Assessment 10/22 * Ankle culture finalized with moderate counts of mixed probable skin microbiota. Blood culture no growth 5 days. Plan for bone biopsy today, continuing current antibiotics pending further culture/ID recommendation. Random level this morning 18.5 mcg/mL. 10/20 73 year old F receiving vancomycin (switched from dapto per ID), cefepime for treatment of chronic osteo. Pertinent microbiologic data includes: wound culture preliminarily growing moderate counts of mixed probable skin microbiota, blood culture now growth. Plan Vancomycin * Loading dose: 1500 mg IV x 1 (already administered) * Maintenance dose: 1000 mg IV every 24 hours * Regimen is predicted to achieve target AUC/STEPHEN of 400-600 mg/L.hr (534 mg/L.hr within the next 24,48) * Additional level to be ordered in 2-3 days or with renal function changes Pharmacy will continue to follow and will adjust dose/frequency as necessary. Thank you. Pharmacy has transitioned to AUC monitoring for vancomycin. AUC/STEPHEN is the preferred PK/PD target and is associated with decreased risk of nephrotoxicity compared to traditional trough targets.
[2024-10-22] MEDS ORDERED: PROPOFOL IV EMULSION 10 MG/ML 20 ML VIAL IV ONE (15:58)
[2024-10-22] MEDS ORDERED: DEXAMETHASONE SOD INJ 4 MG/ML VIAL ONE ×2 (16:01→16:02)
[2024-10-22] MEDS ORDERED: LIDOCAINE 2% 2 ML VIAL/AMP(20MG/ML) INFIL ONE (16:02)
[2024-10-22] MEDS ORDERED: ONDANSETRON INJ 2 MG/ML 2 ML VIAL ONE (16:02)
[2024-10-22] MEDS ORDERED: GLYCOPYRROLATE 0.2 MG/ML VIAL ONE (16:03)
[2024-10-22] MEDS ORDERED: fentaNYL citrate PF 100 MCG/2 ML VIAL ONE (16:04)
[2024-10-22] MEDS ORDERED: MIDAZOLAM HCL 1 MG/ML 2ML VIAL ONE (16:05)
--- NOTE | 2024-10-22 16:30 | History & Physical Bridge Note ---
Date of Service October 22, 2024 History & Physical Bridge Note I have examined the patient, reviewed the History & Physical and in the interval since the performance of the History & Physical I have noted the following changes of clinical significance: no changes noted. Plan for right ankle bone biopsy and culture. Preoperative instructions, postoperative instructions, relative risks, outcomes all discussed. Benefit of procedure is for more definitive diagnosis per ID. Patient is amenable and consent was obtained.
[2024-10-22] MEDS: LACTATED RINGER'S 1,000 ML IV SCH (16:45)
--- NOTE | 2024-10-22 16:56 | Anesthesiology Consultation ---
Date of Service October 22, 2024 Assessment & Plan Chart Review Chart Review: Acceptable Risk for Surgery and Patient NOT seen in Pre Admission Testing Consults Requested none ASA ASA4 Proposed Anesthesia Anesthesia Type: MAC Risk / Benefits Reviewed With: PT / POA / Parent / Guardian, Accepts Plan and Informed Consent Obtained History Surgery Operation Date: 10/22/24 09:40 Proposed Procedures p Right Fibula Bone Biospy and Wound Debridement - Haider Gonzalez, DPRadha Height/Weight Height: 5 ft 4 in Weight: 59.8 kg Allergies Allergy/AdvReac Type Severity Reaction Status Date / Time tizanidine AdvReac Intermediate lethargy Verified 10/14/24 23:52 Medications Home Medications Medication Instructions Recorded Confirmed Last Taken cholecalciferol (vitamin D3) 25 2,000 units PO QAM 09/18/18 10/14/24 10/14/24 mcg (1,000 unit) capsule escitalopram oxalate 20 mg tablet 20 mg PO QAM 09/18/18 10/14/24 10/14/24 (Lexapro) oxybutynin chloride 15 mg 15 mg PO QAM 09/18/18 10/14/24 10/14/24 tablet,extended release 24 hr prednisone 10 mg tablet 10 mg PO QAM 09/18/18 10/14/24 10/14/24 omeprazole 40 mg capsule,delayed 40 mg PO QAM 07/06/21 10/14/24 10/14/24 release teriflunomide 14 mg tablet 14 mg PO QPM 05/13/22 10/14/24 04/14/24 (Aubagio) doxycycline hyclate 50 mg capsule 50 mg PO Q2D Rosacea 08/10/22 10/14/24 09/11/24 melatonin 3 mg tablet 3 mg PO HS 03/05/23 10/14/24 04/13/24 multivitamin 1 tab PO DAILY 03/05/23 10/14/24 04/14/24 Baclofen Pump 0 mg SC DIRECTED 08/05/23 10/14/24 02/02/24 apixaban 5 mg tablet (Eliquis) 5 mg PO BID 02/03/24 10/14/24 10/14/24 atorvastatin 40 mg tablet 40 mg PO QAM 09/13/24 10/14/24 10/14/24 duloxetine 30 mg capsule,delayed 30 mg PO DAILY 09/13/24 10/14/24 Unknown release metoprolol succinate 25 mg 25 mg PO BID 10/01/24 10/14/24 10/14/24 tablet,extended release 24 hr tizanidine 4 mg tablet (Zanaflex) 4 mg PO Q6H Muscle Spasm 10/01/24 10/14/24 10/14/24 Active Medications Generic Name Dose Route Start Last Admin Trade Name Freq PRN Reason Stop Dose Admin Acetaminophen 650 mg 10/14/24 21:03 10/15/24 02:21 Acetaminophen 325 Mg Tab PO 11/13/24 21:02 650 mg Q4H PRN Administration Pain or Fever Apixaban 5 mg 10/14/24 21:03 10/22/24 09:15 Apixaban 5 Mg Tablet PO 11/13/24 21:02 5 mg BID MICHELLE Administration Duloxetine HCl 30 mg 10/15/24 09:00 10/22/24 09:15 Duloxetine Hcl 30 Mg Cap PO 11/14/24 08:59 30 mg DAILY MICHELLE Administration Escitalopram Oxalate 20 mg 10/15/24 09:00 10/22/24 09:15 Escitalopram Oxalate 20 Mg Tab PO 11/14/24 08:59 20 mg QAM MICHELLE Administration Ferrous Sulfate 325 mg 10/17/24 09:00 10/22/24 09:16 Ferrous Sulfate 325 Mg Tab PO 11/16/24 08:59 325 mg QAM MICHELLE Administration Cefepime HCl 2,000 mg in 20 mls @ 5 mls/min 10/17/24 22:00 10/22/24 10:05 Maxipime 2000mg IV 10/28/24 23:59 5 mls/min Q12 MICHELLE Administration Protocol Vancomycin HCl 1,000 mg/ 270 mls @ 200 mls/hr 10/21/24 18:00 10/21/24 20:00 Sodium Chloride IV 12/01/24 17:59 Infused Q24H MICHELLE Infusion Lactated Ringer's 1,000 mls @ 0 mls/hr 10/22/24 17:00 10/22/24 16:45 Lr IV 10/23/24 16:59 15 mls/hr .Q0M MICHELLE Administration KVO Melatonin 3 mg 10/14/24 21:03 10/21/24 20:31 Melatonin 3 Mg Tab PO 11/13/24 21:02 3 mg HS MICHELLE Administration Metoprolol Succinate 25 mg 10/14/24 21:03 10/22/24 09:15 Metoprolol Succ 25mg Ext Rel Tab PO 11/13/24 21:02 25 mg BID MICHELLE Administration Multivitamins 1 tab 10/15/24 09:00 10/22/24 09:16 Multivitamin Tab PO 11/14/24 08:59 1 tab QAM MICHELLE Administration Mupirocin 1 appln 10/17/24 09:00 10/22/24 09:16 Mupirocin 2% Oint 22 Gm Tube EXT 11/16/24 08:59 1 appln DAILY MICHELLE Administration Oxybutynin Chloride 15 mg 10/15/24 09:00 10/22/24 09:15 Oxybutynin Chloride Xl 5 Mg Tabcr PO 11/14/24 08:59 15 mg QAM MICHELLE Administration Pantoprazole Sodium 40 mg 10/15/24 09:00 10/22/24 09:15 Pantoprazole 40 Mg Tab PO 11/14/24 08:59 40 mg QAM MICHELLE Administration Prednisone 10 mg 10/15/24 09:00 10/22/24 09:15 Prednisone 10 Mg Tablet PO 11/14/24 08:59 10 mg QAM MICHELLE Administration Teriflunomide 14 mg 10/16/24 21:00 10/21/24 20:32 Teriflunomide 14 Mg Tab PO 11/15/24 20:59 14 mg QPM MICHELLE Administration Tizanidine HCl 4 mg 10/21/24 18:20 10/21/24 19:29 Tizanidine Hcl 4 Mg Tablet PO 11/13/24 20:59 4 mg Q6H PRN Administration muscle spasm Vitamin D 25 mcg 10/15/24 09:00 10/22/24 09:15 Cholecalciferol 25 Mcg (1000 Units) Tab PO 11/14/24 08:59 25 mcg QAM MICHELLE Administration NPO Date Last Intake of Fluids: 10/22/24 Time Last Intake of Fluids: 09:30 Date Last Intake of Solids: 10/22/24 Time Last Intake of Solids: 09:30 Past Medical History Medical History Osteoarthritis of right knee Cellulitis of right lower extremity Anemia Cellulitis Acute leg pain Fever History of recent hospitalization 09/2022 [facility] - sepsis History of blood transfusion Limb alert care status left arm Osteoarthritis of right shoulder History of GI bleed Upper GIB (2019) felt 2/2 NSAID use History of non-ST elevation myocardial infarction (NSTEMI) 06/2021 (had heart cath, no stents) Hx of gastric ulcer 02/2021 Anemia Hypertension controlled, stable per pt Exercise / Class Metabolic Activity IV < 2 Limit ADL/Bedbound Past Family History Family History Mother Heart disorder Other No family history of adverse response to anesthesia Past Surgical History Surgical History History of removal of Port-a-Cath (02/09/24) Mediport Removal(Right) - Tristin Lazo DO Port-A-Cath in place (09/29/23) A-Port Insertion, right internal jugular(Right) - Tristin Lazo DO S/p reverse total shoulder arthroplasty right: 05/25/22 LMA#4. No postop issues per anesthesia progress note. History of cardiac cath Cardiac cath (07/06/21; [facility]) > Right dominant coronary system. No evidence of aortic stenosis. Normal left ventricular filling pressures. Nonobstructive disease involving the ostial LAD. No evidence of acute coronary syndrome. Approximately 50% ostial stenosis of the LAD. There was some very mild disease at the ostium of the left circumflex. Recommendations: Medical management. History of esophagogastroduodenoscopy (EGD) History of colonoscopy History of tooth extraction Past Anesthesia History No Hx of Anesthesia Complications and No Family Hx of Anesthesia Complications History of PONV No Hx of PONV and No Hx of Motion Sickness Social History Smoking Status: Former smoker tobacco type: cigarettes Smoking cigarettes per day: stopped in 1977 Do You Dip or Chew Tobacco: No Hx Alcohol Use: No Alcohol type: wine alcohol intake frequency: holidays/special occasions only Hx Substance Use: No substance use type: does not use Review of Systems ROS Unobtainable: All systems reviewed & are unremarkable except as noted in HPI & below Physical Exam Vital Signs Last Vital Signs Temp 37.1 C 10/22/24 16:30 Pulse 86 10/22/24 16:30 Resp 20 10/22/24 16:30 BP 113/76 10/22/24 16:30 Pulse Ox 96 10/22/24 16:30 O2 Del Method Room Air 10/22/24 16:30 O2 Flow Rate 2 10/15/24 02:17 ENMT Mouth: no TMJ abnormality Thyromental Distance: > or= 3.5 Finger Breadths Mallampati Class: II Neck normal visual inspection and trachea midline; neck extension not limited Respiratory normal respiratory effort Auscultation: lungs clear to auscultation bilaterally Cardiovascular Rate/Rhythm: regular rate and regular rhythm Heart Sounds: no murmur Musculoskeletal Spine: normal cervical ROM Extremities: full ROM of extremities Neurologic moves all extremities Psychiatric Orientation: alert and oriented x 3 Testing Laboratory Results 10/22/24 07:44 10/22/24 07:44 PT 11.4 Seconds (9.0-12.0) 10/14/24 15:38 INR 1.1 (0.9-1.1) 10/14/24 15:38 Urine Color Yellow 10/14/24 18:20 Urine Appearance Clear (Clear) 10/14/24 18:20 Urine pH 8.0 (4.5-7.5) H 10/14/24 18:20 Ur Specific [place] 1.013 (1.000-1.030) 10/14/24 18:20 Urine Protein Negative (Negative) 10/14/24 18:20 Urine Glucose (UA) Negative (Negative) 10/14/24 18:20 Urine Ketones Negative (Negative) 10/14/24 18:20 Urine Nitrite Negative (Negative) 10/14/24 18:20 Ur Leukocyte Esterase Negative (Negative) 10/14/24 18:20 Blood Type A Positive 10/14/24 16:10 Antibody Screen NEGATIVE 10/14/24 16:10 10/16/24 Unknown Gram Stain - Final Ankle Aerobic and Anaerobic Culture - Final Moderate counts mixed probable skin microbiota. No further identifications or sensitivities to follow. 10/14/24 16:10 Aerobic Blood Culture - Final Blood No growth in Aerobic bottle after 5 days. Anaerobic Blood Culture - Final No growth in Anaerobic bottle after 5 days. 10/14/24 16:14 Aerobic Blood Culture - Final Blood No growth in Aerobic bottle after 5 days. Anaerobic Blood Culture - Final No growth in Anaerobic bottle after 5 days. Electrocardiogram Date: 10/16/24 Normal sinus rhythm Septal infarct (cited on or before 10-Feb-2024) Abnormal ECG When compared with ECG of 14-Oct-2024 14:48, No significant change was found Confirmed by Navin Alejandra ([id number]) on 10/16/2024 6:12:49 PM Echocardiogram Date: 09/14/24 EF: 70 LV Function: normal Valvular Disease: + (mild)
[2024-10-22] MEDS ORDERED: fentaNYL citrate PF 100 MCG/2 ML VIAL IV PRN (16:58)
[2024-10-22] MEDS ORDERED: ePHEDrine sulfate 50 MG/ML AMP IV PRN (16:58)
[2024-10-22] MEDS ORDERED: ATROPINE SULFATE 0.1 MG/ML 10ML SYR IV PRN (16:58)
[2024-10-22] MEDS ORDERED: ONDANSETRON INJ 2 MG/ML 2 ML VIAL IV PRN (16:58)
[2024-10-22] MEDS: BUPIVACAINE 0.5 % 5 MG/1 ML MPF 30ML VIAL ONE (17:07)
--- NOTE | 2024-10-22 17:34 | Post Operative Brief Note ---
Immediate Post Op Note Date of Surgery October 22, 2024 Pre & Post Diagnosis Preoperative diagnosis: Suspected oseomyelitis; Nonhealing fibular wound Postoperative diagnosis: Same I identified the patient and participated in the time-out.: Yes Procedure Right fibula bone biopsy/I&D of infected bone Right fibula wound excision with primary closure Surgeon Haider Gonzalez, DPM [employer] None Estimated Blood Loss 5 Findings See Below No intraoperative findings of osteomyelitis. Bone healthy, covered by soft tissue. Wound extended to subcutaneous tissue. Able to be excised in total, bone obtained, closed with layered closure Specimens Right fibula pathlogy Right fibula bone culture Anesthesia Type MAC Complications none Disposition Accompanied Patient To Recovery: Yes Disposition: Recovery Room
[2024-10-23 06:39] LABS: Hematocrit (blood only) 28.7 % (37.0-47.0); Hemoglobin 9.2 g/dl (12.0-16.0); Mean Corpuscular Hemoglobin 28.6 pg (25.0-34.0); Mean Corpuscular Hgb Conc 32.1 g/dL (32.0-36.0); Mean Corpuscular Volume 89.1 fL (80.0-100.0); Mean Platelet Volume 10.3 fL (9.4-12.4); Platelet Count 270 K/uL (130-400); RDW Coefficient of Variation 18.4 % (11.5-14.5); RDW Standard Deviation 59.2 fL (36.4-46.3); Red Blood Count 3.22 M/uL (4.20-5.40); White Blood Count 6.42 K/ul (4.8-10.8)
[2024-10-23 07:12] LABS: Calcium 9.1 mg/dl (8.6-10.3); Creatinine Clr Calc Pharmacy 40.1 ml/min; Magnesium 2.1 mg/dl (1.7-2.4); Phosphorus 4.2 mg/dl (2.5-4.9); Potassium 4.7 mmol/L (3.5-5.1)
--- NOTE | 2024-10-23 08:55 | Hospitalist Progress Note ---
Date of Service October 23, 2024 Assessment & Plan (1) Sepsis: (2) Elevated lactic acid level: (3) Hypomagnesemia: (4) Leukocytosis: (5) Complicated UTI (urinary tract infection): (6) Multiple sclerosis: (7) Presence of intrathecal pump: (8) Immunocompromised due to corticosteroids: Plan Kandy Shelby is a 73y/o F with PMHx significant for CAD, HTN, HLD, PAF, PSVT, nonrheumatic aortic valve stenosis, Raynaud's syndrome, history ESBL E. coli UTI, prior DVT with pulmonary emboli s/p IVC filter placement [on Eliquis], GERD with esophagitis, protein-calorie malnutrition, neurogenic bladder, multiple sclerosis [on chronic prednisone + Aubagio-], polyneuropathy with chronic pain on Baclofen pump, tobacco use, anemia of chronic disease [baseline Hgb ~9-10], depression with anxiety, sicca syndrome, history of nonmelanoma skin cancer s/p Mohs operation, left breast cancer s/p radiation + surgery, rosacea [on doxycycline], right foot drop, bilateral lower extremity venous stasis, chronic osteomyelitis of the right fibula, chronic right lateral ankle wound and recur rent right lower extremity cellulitis and recent admit for complicated UTI and sepsis who presented to the ED with significant chills throughout the day. Severe Sepsis Septic Shock Lower Extremity cellulitis Lower extremity swelling patient presenting with subjective fevers, noted to be febrile here with also noted leukocytosis blood pressures overnight trending down lactate elevated and down trended after fluid resuscitation Respiratory panel negative Chest x-ray unremarkable UA this admission unremarkable Bilateral venous Doppler of lower extremities with no noted DVT Blood cultures 2 sets with no growth to date MRI of the bilateral lower extremities (legs and feet) notable for cellulitis, concern for chronic osteomyelitis in right great toe, unchanged. Notes lots of edema. continue with IV cefepime and daptomycin, follow cultures -> dapto switched to IV vanco after discussing w/ID Podiatry consulted for R great toe findings on MRI Per podiatry - Right ankle wound was cleaned and redressed with an adhesive bandage. Wound swab cultures were obtained at bedside. This wound does appear stable without any active purulent drainage or obvious infection. It is possible there is chronic osteomyelitis, though this is not confirmed on MR imaging and the wound does not probe to bone as well. There is further no evidence of bone infection to the right forefoot or toes. Again, this is likely a artifact of the MR imaging or inflammation of the toe, rather than any specifi c osteomyelitis of the phalanx. Because of the chronicity of the ulcer, she Would benefit from continued wound care and likely more sharp debridement of the wound. This would not necessarily need to be surgical but could be performed by the wound care team. A consult will be placed to see the patient met that he team. For now, in order for Bactroban with daily dressing changes was placed. We will plan on following up with her on this admission and can continue to follow up with her outpatient since her prior provider is no longer in the area. Patient is amenable to this at this time. Thank you for the consult, we look forward to helping out long-term with her care. blood pressures have improved-will continue with home metoprolol at this time as well as home steroids Continue to monitor 10/16/2024- septic shock resolved, wbc normal. BP sustaining, started on IV Lasix 20mg daily to help with lower extremity swelling. Re-assess daily Given patient's history consulted w/ infectious disease Per ID I have low concern for active infection in the feet. Her right ankle wound is chronic with likely underlying chronic osteomyelitis, and which does not explain her current presentation. Nevertheless, I would recommend obtaining a wound culture from right lateral malleolus to help guide antibiotic treatment. Meanwhile, If there is no concern for EVELINA, I would recommend shifting IV daptomycin to IV vancomycin. Can continue on IV cefepime as well. I will follow-up on the wound culture from the lateral malleolus and decide on the final antibiotic plan. I clarified w/ Dr. Sierra - bone biopsy and cultx recommended Contacted podiatry - Dr. Gonzalez regarding the need for biopsy -> pt is s/p biopsy on (10/22) In addition - pt reports she had a wound cultx w/ Dr. Velasco (outpt casting tester)- that was positive for Pseudomonas - will obtain the med. record. Also notified ID - Dr. Sierra Acute on chronic anemia Iron Deficiency anemia Hemoglobin 7.8 on arrival and down trended to 6.9 Status post transfusion of 1 unit of packed RBCs with noted hemoglobin of 8.9 afterwards Suspect dilutional component as well A.m. anemia panel noting low iron levels, s/p IV venofer 200mg on 10/16/24 Started on po ferrous sulfate continue to monitor and transfuse as needed for hgb <8 Holding home Eliquis at this time, consider resuming after her biopsy Resume as able Possible Emphysematous Cystitis Pt with recent admission for urosepsis on 10/01 UA from 10/01 grew pseudomonas which was treated Repeat UA this admission with no concern for infection KUB ordered for MRI to be completed, noting possible emphysematous cystitis recommending clinical correlation Consider CT abd/pelvis Pt currently without urinary symptoms Also on Cefepime in regimen noted above for cellulitis Continue to monitor symptoms hypomagnesemia Replete as needed Continue other home meds as ordered CODE STATUS: full code Diet: HH VTE prophylaxis: Patient is on chronic apixaban, currently on hold in setting of need for blood transfusion. SCDs Admission and Anticipated Discharge Date Admission Date: October 14, 2024 Subjective Patient seen in follow up Overall feels well, much improved since admission MRI of feet obtained and pt was seen by podiatry, swab cultx obtained by podiatry - prob. skin carmel ID consulted and discussed with for further recommendations - recommend bone biopsy and cultx - pt is s/p biopsy yesterday - follow results In addition - pt reports she had a wound cultx w/ Dr. Velasco (outpt casting tester)- that was positive for Pseudomonas - will obtain the med. record. Also notified ID - Dr. Sierra Pt denies any fever, chills, chest pain, shortness of breath, abd. pain, n/v Review of Systems Review of Systems: All systems reviewed & are unremarkable except as noted in Subjective Physical Exam Physical Exam: General: Alert, oriented. No acute distress Skin: erythema to feet and lower extremities bilaterally. bruising noted on face Psych: Appropriate mood and affect HEENT: NC/AT CV: RRR, +murmur Resp: Breath sounds clear bilaterally, no increased effort of breathing Abdomen:Soft, nontender Extremities: edema in lower extremities improved bilaterally as well as erythema Results & Data Results & Data Vital Signs (Past 12 Hours) Vital Signs Temp Pulse Pulse Resp BP Pulse Ox O2 Del Method 10/23/24 07:24 36.8 C 84 18 114/69 94 Room Air 10/23/24 04:05 36.2 C L 89 18 102/70 92 Room Air 10/22/24 23:37 112/64 10/22/24 23:33 36.5 C 83 18 91/63 L 94 Room Air 10/22/24 22:00 91 H 10/22/24 21:04 107 H 113/72 Laboratory Results 10/23/24 Range/Units 05:49 WBC 6.42 (4.8-10.8) K/ul RBC 3.22 L (4.20-5.40) M/uL Hgb 9.2 L (12.0-16.0) g/dl Hct 28.7 L (37.0-47.0) % MCV 89.1 (80.0-100.0) fL MCH 28.6 (25.0-34.0) pg MCHC 32.1 (32.0-36.0) g/dL RDW Std Deviation 59.2 H (36.4-46.3) fL RDW Coeff of Tiffanie 18.4 H (11.5-14.5) % Plt Count 270 (130-400) K/uL MPV 10.3 (9.4-12.4) fL Sodium 137 (136-145) mmol/L Potassium 4.7 D (3.5-5.1) mmol/L Chloride 101 (98-107) mmol/L Carbon Dioxide 29 (21-32) mmol/L Anion Gap 7 (3-11) BUN 40 H (6-23) mg/dl Creatinine 1.11 (0.6-1.2) mg/dl Est Cr Clr Drug Dosing 40.1 ml/min eGFR 53.14 BUN/Creatinine Ratio 36.0 H (10-20) Glucose 124 H (70-99(Fasting)) mg/dl Calcium 9.1 (8.6-10.3) mg/dl Phosphorus 4.2 (2.5-4.9) mg/dl Magnesium 2.1 (1.7-2.4) mg/dl Medications Administered Current Inpatient Medications Acetaminophen (Acetaminophen 325 Mg Tab) 650 mg PO Q4H PRN PRN Reason: Pain or Fever Stop: 11/13/24 21:02 Last Admin: 10/15/24 02:21 Dose: 650 mg Al Hydrox/Mg Hydrox/Simethicone (Aluminum/Magnesium Susp 30 Ml Udc) 15 ml PO Q4H PRN PRN Reason: Dyspepsia Stop: 11/13/24 21:02 Apixaban (Apixaban 5 Mg Tablet) 5 mg PO BID [facility] Stop: 11/13/24 21:02 Last Admin: 10/22/24 21:07 Dose: 5 mg Baclofen (Baclofen Pain Pump) 1 pump IT UD [facility] Stop: 11/13/24 21:23 Duloxetine HCl (Duloxetine Hcl 30 Mg Cap) 30 mg PO DAILY [facility] Stop: 11/14/24 08:59 Last Admin: 10/22/24 09:15 Dose: 30 mg Escitalopram Oxalate (Escitalopram Oxalate 20 Mg Tab) 20 mg PO QAM [facility] Stop: 11/14/24 08:59 Last Admin: 10/22/24 09:15 Dose: 20 mg Ferrous Sulfate (Ferrous Sulfate 325 Mg Tab) 325 mg PO QAM [facility] Stop: 11/16/24 08:59 Last Admin: 10/22/24 09:16 Dose: 325 mg Cefepime HCl (Maxipime 2000mg) 2,000 mg in 20 mls @ 5 mls/min IV Q12 [facility]; Protocol Stop: 10/28/24 23:59 Last Admin: 10/22/24 21:12 Dose: 5 mls/min Vancomycin HCl 1,000 mg/ (Sodium Chloride) 270 mls @ 200 mls/hr IV Q24H [facility] Stop: 12/01/24 17:59 Last Infusion: 10/22/24 19:43 Dose: Infused Lactated Ringer's (Lr) 1,000 mls @ 15 mls/hr IV .Q24H [facility] Stop: 10/23/24 16:59 Last Admin: 10/22/24 18:10 Dose: Not Given Melatonin (Melatonin 3 Mg Tab) 3 mg PO HS [facility] Stop: 11/13/24 21:02 Last Admin: 10/22/24 21:07 Dose: 3 mg Metoprolol Succinate (Metoprolol Succ 25mg Ext Rel Tab) 25 mg PO BID [facility] Stop: 11/13/24 21:02 Last Admin: 10/22/24 21:07 Dose: 25 mg Miscellaneous Information (Vancomycin Consult Active) 1 each N/A UD PRN PRN Reason: Consult Stop: 11/18/24 17:59 Multivitamins (Multivitamin Tab) 1 tab PO QAM [facility] Stop: 11/14/24 08:59 Last Admin: 10/22/24 09:16 Dose: 1 tab Mupirocin (Mupirocin 2% Oint 22 Gm Tube) 1 appln EXT DAILY [facility] Stop: 11/16/24 08:59 Last Admin: 10/22/24 09:16 Dose: 1 appln Ondansetron HCl (Ondansetron Inj 2 Mg/Ml 2 Ml Vial) 4 mg IV Q6H PRN PRN Reason: Nausea Stop: 11/13/24 21:02 Oxybutynin Chloride (Oxybutynin Chloride Xl 5 Mg Tabcr) [facility] [place] Stop: 11/14/24 08:59 Last Admin: 10/22/24 09:15 Dose: 15 mg Pantoprazole Sodium (Pantoprazole 40 Mg Tab) 40 [facility] [place] Stop: 11/14/24 08:59 Last Admin: 10/22/24 09:15 Dose: 40 mg Polyethylene Glycol (Polyethylene (Miralax) 17 Gm Pack) 17 gm PO DAILY PRN PRN Reason: Constipation Stop: 11/13/24 21:02 Prednisone (Prednisone 10 Mg Tablet) 10 [facility] [place] Stop: 11/14/24 08:59 Last Admin: 10/22/24 09:15 Dose: 10 mg Teriflunomide (Teriflunomide 14 Mg Tab) 14 mg PO QPM [facility] Stop: 11/15/24 20:59 Last Admin: 10/22/24 21:08 Dose: 14 mg Tizanidine HCl (Tizanidine Hcl 4 Mg Tablet) 4 mg PO Q6H PRN PRN Reason: muscle spasm Stop: 11/13/24 20:59 Last Admin: 10/21/24 19:29 Dose: 4 mg Vitamin D (Cholecalciferol 25 Mcg (1000 Units) Tab) 25 mcg [facility] [place] Stop: 11/14/24 08:59 Last Admin: 10/22/24 09:15 Dose: 25 mcg
[2024-10-24 08:04] LABS: BUN Creatinine Ratio 36.1 (10-20); Calcium 9.4 mg/dl (8.6-10.3); Magnesium 2.1 mg/dl (1.7-2.4); Phosphorus 3.5 mg/dl (2.5-4.9)
[2024-10-24 08:08] LABS: Hematocrit (blood only) 29.7 % (37.0-47.0); Hemoglobin 9.5 g/dl (12.0-16.0); Mean Corpuscular Hemoglobin 28.6 pg (25.0-34.0); Mean Corpuscular Volume 89.5 fL (80.0-100.0); Mean Platelet Volume 10.7 fL (9.4-12.4); Platelet Count 286 K/uL (130-400); RDW Coefficient of Variation 18.5 % (11.5-14.5); RDW Standard Deviation 59.9 fL (36.4-46.3); Red Blood Count 3.32 M/uL (4.20-5.40); White Blood Count 5.66 K/ul (4.8-10.8)
--- NOTE | 2024-10-24 16:15 | Hospitalist Progress Note ---
Date of Service October 24, 2024 Assessment & Plan (1) Sepsis: (2) Elevated lactic acid level: (3) Hypomagnesemia: (4) Leukocytosis: (5) Complicated UTI (urinary tract infection): (6) Multiple sclerosis: (7) Presence of intrathecal pump: (8) Immunocompromised due to corticosteroids: Plan per Dr. Johnson's notes with addendum: Kandy Shelby is a 73y/o F with PMHx significant for CAD, HTN, HLD, PAF, PSVT, nonrheumatic aortic valve stenosis, Raynaud's syndrome, history ESBL E. coli UTI, prior DVT with pulmonary emboli s/p IVC filter placement [on Eliquis], GERD with esophagitis, protein-calorie malnutrition, neurogenic bladder, multiple sclerosis [on chronic prednisone + Aubagio-], polyneuropathy with chronic pain on Baclofen pump, tobacco use, anemia of chronic disease [baseline Hgb ~9-10], depression with anxiety, sicca syndrome, history of nonmelanoma skin cancer s/p Mohs operation, left breast cancer s/p radiation + surgery, rosacea [on doxycycline], right foot drop, bilateral lower extremity venous stasis, chronic osteomyelitis of the right fibula, chronic right lateral ankle wound and recurrent right lower extremity cellulitis and recent admit for complicated UTI and sepsis who presented to the ED with significant chills throughout the day. Severe Sepsis Septic Shock Lower Extremity cellulitis Lower extremity swelling patient presenting with subjective fevers, noted to be febrile here with also noted leukocytosis blood pressures overnight trending down lactate elevated and down trended after fluid resuscitation Respiratory panel negative Chest x-ray unremarkable UA this admission unremarkable Bilateral venous Doppler of lower extremities with no noted DVT Blood cultures 2 sets with no growth to date MRI of the bilateral lower extremities (legs and feet) notable for cellulitis, concern for chronic osteomyelitis in right great toe, unchanged. Notes lots of edema. continue with IV cefepime and daptomycin, follow cultures -> dapto switched to IV vanco after discussing w/ID Podiatry consulted for R great toe findings on MRI Per podiatry - Right ankle wound was cleaned and redressed with an adhesive bandage. Wound swab cultures were obtained at bedside. This wound does appear stable without any active purulent drainage or obvious infection. It is possible there is chronic osteomyelitis, though this is not confirmed on MR imaging and the wound does not probe to bone as well. There is further no evidence of bone infection to the right forefoot or toes. Again, this is likely a artifact of the MR imaging or inflammation of the toe, rather than any specific osteomyelitis of the phalanx. Because of the chronicity of the ulcer, she Would benefit from continued wound care and likely more sharp debridement of the wound. This would not necessarily need to be surgical but could be performed by the wound care team. A consult will be placed to see the patient met that he team. For now, in order for Bactroban with daily dressing changes was placed. We will plan on following up with her on this admission and can continue to follow up with her outpatient since her prior provider is no longer in the area. Patient is amenable to this at this time. Thank you for the consult, we look forward to helping out long-term with her care. blood pressures have improved-will continue with home metoprolol at this time as well as home steroids Continue to monitor 10/16/2024- septic shock resolved, wbc normal. BP sustaining, started on IV Lasix 20mg daily to help with lower extremity swelling. Re-assess daily Given patient's history consulted w/ infectious disease Per ID I have low concern for active infection in the feet. Her right ankle wound is chronic with likely underlying chronic osteomyelitis, and which does not explain her current presentation. Nevertheless, I would recommend obtaining a wound culture from right lateral malleolus to help guide antibiotic treatment. Meanwhile, If there is no concern for EVELINA, I would recommend shifting IV daptomycin to IV vancomycin. Can continue on IV cefepime as well. I will follow-up on the wound culture from the lateral malleolus and decide on the final antibiotic plan. I clarified w/ Dr. Sierra - bone biopsy and cultx recommended Contacted podiatry - Dr. Gonzalez regarding the need for biopsy -> pt is s/p biopsy on (10/22) In addition - pt reports she had a wound cultx w/ Dr. Velasco (outpt senior sql developer)- that was positive for Pseudomonas - will obtain the med. record. Also notified ID - Dr. Sierra - bone culture: negative so far bone biopsy: pending - continue IV abx will discuss with ID once above results available Acute on chronic anemia Iron Deficiency anemia Hemoglobin 7.8 on arrival and down trended to 6.9 Status post transfusion of 1 unit of packed RBCs with noted hemoglobin of 8.9 afterwards Suspect dilutional component as well A.m. anemia panel noting low iron levels, s/p IV venofer 200mg on 10/16/24 Started on po ferrous sulfate continue to monitor and transfuse as needed for hgb <8 Holding home Eliquis at this time, consider resuming after her biopsy Resume as able -- Hg stable Possible Emphysematous Cystitis Pt with recent admission for urosepsis on 10/01 UA from 10/01 grew pseudomonas which was treated Repeat UA this admission with no concern for infection KUB ordered for MRI to be completed, noting possible emphysematous cystitis recommending clinical correlation Consider CT abd/pelvis Pt currently without urinary symptoms Also on Cefepime in regimen noted above for cellulitis Continue to monitor symptoms hypomagnesemia Replete as needed Continue other home meds as ordered CODE STATUS: full code Diet: HH VTE prophylaxis: Patient is on chronic apixaban, currently on hold in setting of need for blood transfusion. [facility] Admission and Anticipated Discharge Date Admission Date: October 14, 2024 Subjective ff up for r ankle wound/cellulitis, etc seen resting in chair, comfortable daughter at bedside visiting states she feels fine overall R foot feels somewhat sore after biopsy no fever/chills no other symptoms Review of Systems Review of Systems: all noted and negative except for above Physical Exam Physical Exam: General- oriented x 3, not in distress, speaks in sentences with no effort or accessory muscle use Eyes- anicteric Neck- no JVD Lungs- clear breath sounds bilaterally, no rales/wheezes Heart- normal rate, regular rhythm; no murmurs Abdomen- normal bowel sounds, nondistended, soft, nontender Extremities- R foot: bandage over the ankle in place no pretibial edema, no calf tenderness Neuro- alert, oriented x 3; no gross focal neurologic deficits Skin- warm & dry Results & Data Results & Data Vital Signs (Past 12 Hours) Vital Signs Temp Pulse Resp BP Pulse Ox O2 Del Method 10/24/24 15:33 36.5 C 78 18 122/65 95 Room Air 10/24/24 11:27 36.7 C 76 18 108/65 96 Room Air 10/24/24 08:01 36.7 C 81 18 127/81 92 Room Air all noted and reviewed including below
[2024-10-24] MEDS: ADVANCED PROBIOTIC 625 MG CAPSULE PO SCH (17:41)
[2024-10-25 07:27] LABS: Creatinine Clr Calc Pharmacy 47.4 ml/min
--- NOTE | 2024-10-25 18:41 | Hospitalist Progress Note ---
Date of Service October 25, 2024 Assessment & Plan (1) Sepsis: (2) Elevated lactic acid level: (3) Hypomagnesemia: (4) Leukocytosis: (5) Complicated UTI (urinary tract infection): (6) Multiple sclerosis: (7) Presence of intrathecal pump: (8) Immunocompromised due to corticosteroids: Plan per Dr. Johnson's notes with addendum: Kandy Shelby is a 73y/o F with PMHx significant for CAD, HTN, HLD, PAF, PSVT, nonrheumatic aortic valve stenosis, Raynaud's syndrome, history ESBL E. coli UTI, prior DVT with pulmonary emboli s/p IVC filter placement [on Eliquis], GERD with esophagitis, protein-calorie malnutrition, neurogenic bladder, multiple sclerosis [on chronic prednisone + Aubagio-], polyneuropathy with chronic pain on Baclofen pump, tobacco use, anemia of chronic disease [baseline Hgb ~9-10], depression with anxiety, sicca syndrome, history of nonmelanoma skin cancer s/p Mohs operation, left breast cancer s/p radiation + surgery, rosacea [on doxycycline], right foot drop, bilateral lower extremity venous stasis, chronic osteomyelitis of the right fibula, chronic right lateral ankle wound and recurrent right lower extremity cellulitis and recent admit for complicated UTI and sepsis who presented to the ED with significant chills throughout the day. Severe Sepsis Septic Shock Lower Extremity cellulitis Lower extremity swelling patient presenting with subjective fevers, noted to be febrile here with also noted leukocytosis blood pressures overnight trending down lactate elevated and down trended after fluid resuscitation Respiratory panel negative Chest x-ray unremarkable UA this admission unremarkable Bilateral venous Doppler of lower extremities with no noted DVT Blood cultures 2 sets with no growth to date MRI of the bilateral lower extremities (legs and feet) notable for cellulitis, concern for chronic osteomyelitis in right great toe, unchanged. Notes lots of edema. continue with IV cefepime and daptomycin, follow cultures -> dapto switched to IV vanco after discussing w/ID Podiatry consulted for R great toe findings on MRI Per podiatry - Right ankle wound was cleaned and redressed with an adhesive bandage. Wound swab cultures were obtained at bedside. This wound does appear stable without any active purulent drainage or obvious infection. It is possible there is chronic osteomyelitis, though this is not confirmed on MR imaging and the wound does not probe to bone as well. There is further no evidence of bone infection to the right forefoot or toes. Again, this is likely a artifact of the MR imaging or inflammation of the toe, rather than any specific osteomyelitis of the phalanx. Because of the chronicity of the ulcer, she Would benefit from continued wound care and likely more sharp debridement of the wound. This would not necessarily need to be surgical but could be performed by the wound care team. A consult will be placed to see the patient met that he team. For now, in order for Bactroban with daily dressing changes was placed. We will plan on following up with her on this admission and can continue to follow up with her outpatient since her prior provider is no longer in the area. Patient is amenable to this at this time. Thank you for the consult, we look forward to helping out long-term with her care. blood pressures have improved-will continue with home metoprolol at this time as well as home steroids Continue to monitor 10/16/2024- septic shock resolved, wbc normal. BP sustaining, started on IV Lasix 20mg daily to help with lower extremity swelling. Re-assess daily Given patient's history consulted w/ infectious disease Per ID I have low concern for active infection in the feet. Her right ankle wound is chronic with likely underlying chronic osteomyelitis, and which does not explain her current presentation. Nevertheless, I would recommend obtaining a wound culture from right lateral malleolus to help guide antibiotic treatment. Meanwhile, If there is no concern for EVELINA, I would recommend shifting IV daptomycin to IV vancomycin. Can continue on IV cefepime as well. I will follow-up on the wound culture from the lateral malleolus and decide on the final antibiotic plan. I clarified w/ Dr. Sierra - bone biopsy and cultx recommended Contacted podiatry - Dr. Gonzalez regarding the need for biopsy -> pt is s/p biopsy on (10/22) In addition - pt reports she had a wound cultx w/ Dr. Velasco (outpt quantometer operator)- that was positive for Pseudomonas - will obtain the med. record. Also notified ID - Dr. Sierra - bone culture: negative so far bone biopsy: pending - continue IV abx will discuss with ID once above results available 10/25 bone culture: negative bone biopsy: no osteomyelitis continue IV abx will discuss with ID Dr. Sierra tomorrow Acute on chronic anemia Iron Deficiency anemia Hemoglobin 7.8 on arrival and down trended to 6.9 Status post transfusion of 1 unit of packed RBCs with noted hemoglobin of 8.9 afterwards Suspect dilutional component as well A.m. anemia panel noting low iron levels, s/p IV venofer 200mg on 10/16/24 Started on po ferrous sulfate continue to monitor and transfuse as needed for hgb <8 Holding home Eliquis at this time, consider resuming after her biopsy Resume as able -- Hg stable Possible Emphysematous Cystitis Pt with recent admission for urosepsis on 10/01 UA from 10/01 grew pseudomonas which was treated Repeat UA this admission with no concern for infection KUB ordered for MRI to be completed, noting possible emphysematous cystitis recommending clinical correlation Consider CT abd/pelvis Pt currently without urinary symptoms Also on Cefepime in regimen noted above for cellulitis Continue to monitor symptoms hypomagnesemia Replete as needed Continue other home meds as ordered CODE STATUS: full code Diet: HH VTE prophylaxis: Patient is on chronic apixaban Admission and Anticipated Discharge Date Admission Date: October 14, 2024 Subjective ff up for R foot cellulitis, etc seen resting in bed, comfortable family at bedside visiting states she feels fine overall minimal discomfort over R foot no fever/chills no other symptoms Review of Systems Review of Systems: all noted and negative except for above Physical Exam Physical Exam: General- oriented x 3, not in distress, speaks in sentences with no effort or accessory muscle use Eyes- anicteric Neck- no JVD Lungs- clear breath sounds bilaterally, no rales/wheezes Heart- normal rate, regular rhythm; no murmurs Abdomen- normal bowel sounds, nondistended, soft, nontender Extremities- R foot: dressing/bandage in place, no bleeding or discharge no pretibial edema, no calf tenderness Neuro- alert, oriented x 3; no gross focal neurologic deficits Skin- warm & dry Results & Data Results & Data Vital Signs (Past 12 Hours) Vital Signs Temp Pulse Resp BP Pulse Ox O2 Del Method 10/25/24 15:39 36.4 C L 80 18 124/83 97 Room Air 10/25/24 11:20 36.6 C 77 18 127/69 94 Room Air 10/25/24 07:54 36.4 C L 76 18 148/93 H 96 Room Air all noted and reviewed including below
[2024-10-26 05:54] LABS: Creatinine Clr Calc Pharmacy 43.7 ml/min
[2024-10-26 07:50] VITALS: RESP 18
--- NOTE | 2024-10-26 09:27 | Pharmacy Report ---
Pharmacy PK ABX Note - Date of Service October 26, 2024 - Assessment and Plan Assessment 10/26: Day #8 vancomycin. 10/16 and 10/22 ankle cultures with low counts mixed skin microbiota. Renal function stable. 10/22: Ankle culture finalized with moderate counts of mixed probable skin microbiota. Blood culture no growth 5 days. Plan for bone biopsy today, continuing current antibiotics pending further culture/ID recommendation. Random level this morning 18.5 mcg/mL. 10/20: 73 year old F receiving vancomycin (switched from dapto per ID), cefepime for treatment of chronic osteo. Pertinent microbiologic data includes: wound culture preliminarily growing moderate counts of mixed probable skin microbiota, blood culture now growth. Plan Vancomycin * Current regimen: vancomycin 1gm IV q24h * Random level this AM (~11.5h level), 22.8mcg/mL. Predicted to achieve ssAUC 512mg/L.hr - therapeutic. * Continue vancomycin 1gm IV q24h. Repeat level in 48-72h or sooner if clinically indicated. Pharmacy will continue to follow and will adjust dose/frequency as necessary. Thank you. Pharmacy has transitioned to AUC monitoring for vancomycin. AUC/STEPHEN is the preferred PK/PD target and is associated with decreased risk of nephrotoxicity compared to traditional trough targets.
[2024-10-26 11:03] VITALS: TEMP 97.5; O2SAT 95
--- NOTE | 2024-10-26 14:41 | Discharge Summary ---
Discharge Summary Date of Service October 26, 2024 delayed entry date of service noted above Principal Dx & Hospital Course #1 = Principal Diagnosis (1) Sepsis: (2) Elevated lactic acid level: (3) Hypomagnesemia: (4) Leukocytosis: (5) Complicated UTI (urinary tract infection): (6) Multiple sclerosis: (7) Presence of intrathecal pump: (8) Immunocompromised due to corticosteroids: Plan per Dr. Johnson's notes with addendum: Kandy Shelby is a 73y/o F with PMHx significant for CAD, HTN, HLD, PAF, PSVT, nonrheumatic aortic valve stenosis, Raynaud's syndrome, history ESBL E. coli UTI, prior DVT with pulmonary emboli s/p IVC filter placement [on Eliquis], GERD with esophagitis, protein-calorie malnutrition, neurogenic bladder, multiple sclerosis [on chronic prednisone + Aubagio-], polyneuropathy with chronic pain on Baclofen pump, tobacco use, anemia of chronic disease [baseline Hgb ~9-10], depression with anxiety, sicca syndrome, history of nonmelanoma skin cancer s/p Mohs operation, left breast cancer s/p radiation + surgery, rosacea [on doxycycline], right foot drop, bilateral lower extremity venous stasis, chronic osteomyelitis of the right fibula, chronic right lateral ankle wound and recurrent right lower extremity cellulitis and recent admit for complicated UTI and sepsis who presented to the ED with significant chills throughout the day. Severe Sepsis Septic Shock Lower Extremity cellulitis Lower extremity swelling Respiratory panel negative Chest x-ray unremarkable UA this admission unremarkable Bilateral venous Doppler of lower extremities with no noted DVT Blood cultures 2 sets with no growth to date MRI of the bilateral lower extremities (legs and feet) notable for cellulitis, concern for chronic osteomyelitis in right great toe, unchanged. Notes lots of edema. continue with IV cefepime and daptomycin, follow cultures -> dapto switched to IV vanco after discussing w/ID Podiatry consulted for R great toe findings on MRI Per podiatry - Right ankle wound was cleaned and redressed with an adhesive bandage. Wound swab cultures were obtained at bedside. This wound does appear stable without any active purulent drainage or obvious infection. It is possible there is chronic osteomyelitis, though this is not confirmed on MR imaging and the wound does not probe to bone as well. There is further no evidence of bone infection to the right forefoot or toes. Again, this is likely a artifact of the MR imaging or inflammation of the toe, rather than any specific osteomyelitis of the phalanx. Because of the chronicity of the ulcer, she Would benefit from continued wound care and likely more sharp debridement of the wound. This would not necessarily need to be surgical but could be performed by the wound care team. A consult will be placed to see the patient met that he team. For now, in order for Bactroban with daily dressing changes was placed. We will plan on following up with her on this admission and can continue to follow up with her outpatient since her prior provider is no longer in the area. Patient is amenable to this at this time. Thank you for the consult, we look forward to helping out long-term with her care. blood pressures have improved-will continue with home metoprolol at this time as well as home steroids Continue to monitor 10/16/2024- septic shock resolved, wbc normal. BP sustaining, started on IV Lasix 20mg daily to help with lower extremity swelling. Given patient's history consulted w/ infectious disease Per ID I have low concern for active infection in the feet. Her right ankle wound is chronic with likely underlying chronic osteomyelitis, and which does not explain her current presentation. Nevertheless, I would recommend obtaining a wound culture from right lateral malleolus to help guide antibiotic treatment. Meanwhile, If there is no concern for EVELINA, I would recommend shifting IV daptomycin to IV vancomycin. Can continue on IV cefepime as well. I will follow-up on the wound culture from the lateral malleolus and decide on the final antibiotic plan. I clarified w/ Dr. Sierra - bone biopsy and cultx recommended Contacted podiatry - Dr. Gonzalez regarding the need for biopsy -> pt is s/p biopsy on (10/22) In addition - pt reports she had a wound cultx w/ Dr. Velasco (outpt suppository molding machine operator)- that was positive for Pseudomonas - will obtain the med. record. Also notified ID - Dr. Sierra 10/25 bone culture: negative bone biopsy: no osteomyelitis patient completed ~10 day course of IV Vancomycin and Cefepime while admitted discussed with ID Dr. Porter--> does not recommend further antibiotic treatment discharge plan: follow up with wound care center and podiatris Acute on chronic anemia Iron Deficiency anemia Hemoglobin 7.8 on arrival and down trended to 6.9 Status post transfusion of 1 unit of packed RBCs with noted hemoglobin of 8.9 afterwards Suspect dilutional component as well A.m. anemia panel noting low iron levels, s/p IV venofer 200mg on 10/16/24 Started on po ferrous sulfate continue to monitor and transfuse as needed for hgb <8 Holding home Eliquis at this time, consider resuming after her biopsy Resume as able -- Hg stable Possible Emphysematous Cystitis Pt with recent admission for urosepsis on 10/01 UA from 10/01 grew pseudomonas which was treated Repeat UA this admission with no concern for infection KUB ordered for MRI to be completed, noting possible emphysematous cystitis recommending clinical correlation Pt currently without urinary symptoms Also on Cefepime in regimen noted above for cellulitis -- no urinary symptoms advised not to perform self cath at home to avoid UTIs Hypomagnesemia Replete as needed Continue other home meds as ordered Disposition: d/c home ff up with Wound Care Center and Trials Manager Notes For Next Care Provider Medication Changes From Visit per Med Rec Admission HPI Per Admitting Provider Kandy Banksaldion is a 73y/o F with PMHx significant for CAD, HTN, HLD, PAF, PSVT, nonrheumatic aortic valve stenosis, Raynaud's syndrome, history ESBL E. coli UTI, prior DVT with pulmonary emboli s/p IVC filter placement [on Eliquis], GERD with esophagitis, protein-calorie malnutrition, neurogenic bladder, multiple sclerosis [on chronic prednisone + Aubagio-], polyneuropathy with chronic pain on Baclofen pump, tobacco use, anemia of chronic disease [baseline Hgb ~9-10], depression with anxiety, sicca syndrome, history of nonmelanoma skin cancer s/p Mohs operation, left breast cancer s/p radiation + surgery, rosacea [on doxycycline], right foot drop, bilateral lower extremity venous stasis, chronic osteomyelitis of the right fibula, chronic right lateral ankle wound and recurrent right lower extremity cellulitis and recent admit for complicated UTI and sepsis who presents to the ED today with significant chills throughout the day. She denies any measured fevers at home. She reports that she was just discharged from the hospital a week ago after being admitted for a fall and sepsis. She denies any abdominal pain, nausea or vomiting. Denies any chest pain or shortness of breath. Denies any dysuria or hematuria but does have urinary incontinence at times due to her MS. Denies any recent sick contact exposures. Denies any headache or changes in vision. In the ED she has significant leukocytosis with a white count of 32,000. Her lactate is mildly elevated at 2.2. She was given IV cefepime in the ED after cultures were drawn. Her hemoglobin is down to 7.8 from 8.6 from her prior admission. She denies any bleeding. Her troponins were quite elevated on her last admission but troponins x 2 in the ER are slightly elevated but flat. Her EKG shows a sinus rhythm. There is no tachycardia. Her chest x-ray was reviewed and shows chronic stable changes and no acute infiltrate. Her UA is not back yet. Magnesium was low and she is receiving IV magnesium Admission Exam Per Admitting Provider General- adult female seen at bedside in the ED. Nursing is present. She appears chronically ill. Head-she has marked ecchymosis on the right side of her face and periorbital areas. This is from her fall last admission. Eyes- PERRL, EOMI, anicteric, negative hyphema ENT- oropharynx clear Neck- supple, no JVD, no adenopathy, no thyromegaly; carotids +2/2, no bruits appreciated Lungs- clear to auscultation and percussion Heart- regular rhythm; no murmur, no gallop, no rub appreciated Abdomen- normal bowel sounds, soft, nontender, no masses or hepatosplenomegaly Extremities-chronic lymphedema bilaterally, no calf tenderness; she has a small shallow healing ulcer on the right lateral malleolus. There is no drainage and there is no inflammation. Neuro- alert, oriented x 3; PERRL, EOMI; no facial palsy; no dysarthria; she has generalized weakness. Skin- warm & dry Discharge Exam General- oriented x 3, not in distress, speaks in sentences with no effort or accessory muscle use Eyes- anicteric Neck- no JVD Lungs- clear breath sounds bilaterally, no rales/wheezes Heart- normal rate, regular rhythm; no murmurs Abdomen- normal bowel sounds, nondistended, soft, nontender Extremities- R foot: dressing/bandage in place, no bleeding or discharge no pretibial edema, no calf tenderness Neuro- alert, oriented x 3; no gross focal neurologic deficits Skin- warm & dry Updated Medication List Medication Instructions Recorded Confirmed Type cholecalciferol (vitamin D3) 25 2,000 units PO QAM 09/18/18 10/14/24 History mcg (1,000 unit) capsule escitalopram oxalate 20 mg tablet 20 mg PO QAM 09/18/18 10/14/24 History (Lexapro) oxybutynin chloride 15 mg 15 mg PO QAM 09/18/18 10/14/24 History tablet,extended release 24 hr prednisone 10 mg tablet 10 mg PO QAM 09/18/18 10/14/24 History omeprazole 40 mg capsule,delayed 40 mg PO QAM 07/06/21 10/14/24 History release teriflunomide 14 mg tablet 14 mg PO QPM 05/13/22 10/14/24 History (Aubagio) doxycycline hyclate 50 mg capsule 50 mg PO Q2D Rosacea 08/10/22 10/14/24 History melatonin 3 mg tablet 3 mg PO HS 03/05/23 10/14/24 History multivitamin 1 tab PO DAILY 03/05/23 10/14/24 History Baclofen Pump 0 mg SC DIRECTED 08/05/23 10/14/24 History apixaban 5 mg tablet (Eliquis) 5 mg PO BID 02/03/24 10/14/24 History atorvastatin 40 mg tablet 40 mg PO QAM 09/13/24 10/14/24 History duloxetine 30 mg capsule,delayed 30 mg PO DAILY 09/13/24 10/14/24 History release metoprolol succinate 25 mg 25 mg PO BID 10/01/24 10/14/24 History tablet,extended release 24 hr tizanidine 4 mg tablet (Zanaflex) 4 mg PO Q6H Muscle Spasm 10/01/24 10/14/24 History ferrous sulfate 325 mg (65 mg 325 mg PO QAM 30 days #30 tabs 10/26/24 Rx iron) tablet,delayed release mupirocin 2 % topical ointment 1 applic EXT DAILY 10 days #50 10/26/24 Rx grams Hospital Stay Data Consultations 10/14/24 16:44 ED Decision to Admit Stat 10/16/24 07:38 Consult Podiatry Routine 10/16/24 21:54 Consult Pain Management Routine 10/18/24 08:38 Consult Infectious Diseases Routine 10/22/24 10:30 Consult Podiatry Routine Procedures Performed Operation Date: 10/22/24 09:40 Actual Procedures p Right Lateral Malleolus Bone Biospy and Culture(Right) - Haider Gonzalez DPM Diagnostic Imagining Performed CXR: EXAM: Radiograph of the Chest 1 View INDICATION: Dyspnea. TECHNIQUE: Frontal view of the chest. COMPARISON: 10/02/2024 FINDINGS: Lungs and pleural spaces: Stable chronic interstitial changes and hyperinflation. Chronic likely compressive atelectasis in the left base unchanged. Heart: Shape and configuration within normal limits allowing for technique. Mediastinum: Stable moderate to large hiatal hernia. Bones/joints: Degenerative changes noted in the scoliotic spine. No acute osseous abnormality noted. Visualized right shoulder arthroplasty components grossly intact. Degenerative changes noted in the left shoulder. Soft tissues: No abnormality noted. No radiopaque foreign body noted. Upper abdomen: No abnormality noted. IMPRESSION: Stable chronic changes. No acute disease. ACT 112: Negative or not required by law. 10/15/24 17:32 MRI Foot [MR foot LT wo/w con] Urgent MRI Foot [MR foot RT wo/w con] Urgent MRI Leg [MR lower leg LT wo/w con] Urgent MRI Leg [MR lower leg RT wo/w con] Urgent 10/15/24 17:45 US venous doppler LE BI Routine 10/15/24 EXAM: Radiograph of the Abdomen 1 View INDICATION: MRI clearance TECHNIQUE: Frontal supine view of the abdomen/pelvis. COMPARISON: 09/14/2024 FINDINGS: Limitations: None. Lower thorax: There is mottled gas projecting in the pelvis which may be emphysematous cystitis. There is a small left retrocardiac left basilar infiltrate. Question trace left pleural effusion. Gastrointestinal tract: Air scattered throughout non-dilated intestinal loops. Organs: Visualized organ shadows appear grossly normal. Bones/joints: No interval change in intrathecal catheter entering the canal at the level of L4. The proximal tip appears to be at T11. Stable position of subcutaneous left lower quadrant generator. Inferior vena cava filter unchanged L2-L3. Visualized portion of left hip arthroplasty well-seated and intact with grossly stable surrounding heterotopic bone formation. Stable old right pubic rami fractures. Scoliotic spine with degenerative change.. IMPRESSION: 1. There is mottled gas projecting in the pelvis which may be emphysematous cystitis. 2. Intrathecal catheter with left subcutaneous lower quadrant pump, left hip arthroplasty and inferior vena cava filter present. 3. Left basilar atelectasis or pneumonia possible trace left pleural effusion. ACT 112: Negative or not required by law. Electronically signed by Zuly Wade 10-15-2024 6:56 PM Dictated: 10/15/24 [id number] Pending Results Patient Have Any Pending Studies at Discharge: No Discharge Instructions Given to Patient (Per Discharging Provider) PLEASE REFER TO YOUR NEW MEDICATION LIST AND FOLLOW INSTRUCTIONS CAREFULLY. YOUR NEW MEDICATIONS INCLUDE: Augmentin, Doxycycline- antibiotic for lower leg cellulitis Please take a probiotic daily and eat yogurt daily for at least 1 month. Ferrous sulfate- Iron supplement PLEASE CALL YOUR PRIMARY CARE PHYSICIAN OR RETURN TO THE ER IF WITH WORSENING OF SYMPTOMS, INCLUDING leg redness/swelling/pain, fever/chills, weakness, etc FOLLOW UP WITH PRIMARY CARE PHYSICIAN IN 1 WEEK. THE CLINIC WILL BE CALLING YOU SOON FOR THE APPOINTMENT SCHEDULE. FOLLOW UP WITH GROUP MANAGING DIRECTOR IN 1 WEEK. FOLLOW UP WITH [facility] IN 1 WEEK. Total Time Total Time Spent Total Time Spent (In Minutes): 45 minutes
[2024-10-26 14:55] VITALS: BP 100/67; PULSE 68
--- NOTE | 2024-11-03 21:57 | Operative Report ---
Post Operative Report Pre & Post Diagnosis Operation Date: 10/22/24 09:40 Pre-Op Diagnosis: Sepsis, Lower extremity cellulitis, Wound infection, Chronic refractory osteomyelitis of ankle Post-Op Diagnosis: Sepsis, Lower extremity cellulitis, Wound infection, Chronic refractory osteomyelitis of ankle I identified the patient and participated in the time-out.: Yes Procedure Operation Date: 10/22/24 09:40 Actual Procedures p Right Lateral Malleolus Bone Biospy and Culture(Right) - Haider Gonzalez DPM Surgeon Haider Gonzalez DPM Machine Setter Automatic None Estimated Blood Loss 5 Findings See Below No obvious bone or joint infectiion noted. There is no evideence of deeper probing wound with the wound confined to the subcutaneous tissue. The underlying bone was healthy clinically with no purulent drainage or no sinus tract formation. Attempted primary closure of the ulceration was perrformed, though given the circular nature of the lesion, it may fail and stilll require wound care. Specimens Running Rigger bone obtained from the lateral malleolus was sent for culture and pathology testing. Anesthesia Type MAC Complications none Disposition Accompanied Patient To Recovery: Yes Disposition: Recovery Room Indications This patient is a recent hospital consult of varus to present to the hospital with infectious concerns but on admission was noted to have an ulceration to the lateral malleolus of the right foot. This has been chronic and treated by the wound care center over time but it has failed to heal for quite a while. Clinically, there is no evidence of osteomyelitis, though the wound care team and infectious disease team requested deeper more conclusive samples so we have elected for this bone biiopsy to get more definitive results. Preoperative instructions, postoperative instructions, relative risks, and outcomes were all discussed. Description of Procedure The patient was brought to the operating room and placed on the operating table in the supine position. Following administration of IV sedation, local analgesia was obtained utilizing 20 cc of half percent Marcaine in a local block fashion. No tourniquet was utilized during the duration of this case given the patient's age and vascular status. The right lower extremity was scrubbed, prepped, and draped in the usual aseptic manner. Attention was directed to the right lateral ankle where a small 0.8 cm ulceration was noted directly overlying the lateral malleolus. 2 converging semielliptical incisions were made circumferentially around this ulceration to excise it in toto. The surgical incision was carried down to the level of the lateral malleolus utilizing sharp dissection techniques. The surgical site was flushed with copious amounts of sterile saline prior to obtaining culture and pathology samples. Utilizing a run drawer, bony fragments from the lateral malleus were obtained for both of these further tests. No extensive bone was resected given the clinically healthy appearing bone. It was deemed worthwhile to leave most of the fibula intact to prevent long-term complications with no obvious suggestion of osteomyelitis. After obtaining the sample, the surgical site was flushed with copious amounts of sterile saline again and closure was performed utilizing 2-0 nylon alternating simple interrupted and horizontal m attress suture. The patient tolerated the procedure well and was transferred to the recovery room with vital signs stable and vascular status intact to the feet. Following postoperative monitoring, the patient will be transferred back to the floor for further follow-up and likely discharge in the next couple of days. I attest to the content of the Intraoperative Record and any orders documented therein. Any exceptions are noted below.
== END 2024-10-26 15:34 | disposition home health service (06) | DRG 853 ==
LOC: ED 14:26 → 2E 18:06 → SUATTDRO 18:06 → 2E 20:20

== ENCOUNTER 2025-02-19 11:58 | Inpatient (IN) ==
[2025-02-19 13:08] LABS: Hematocrit (blood only) 25.1 % (37.0-47.0); Hemoglobin 7.7 g/dl (12.0-16.0); Mean Corpuscular Hemoglobin 25.8 pg (25.0-34.0); Mean Corpuscular Hgb Conc 30.7 g/dL (32.0-36.0); Mean Corpuscular Volume 84.2 fL (80.0-100.0); Mean Platelet Volume 9.5 fL (9.4-12.4); Platelet Count 390 K/uL (130-400); RDW Coefficient of Variation 18.7 % (11.5-14.5); RDW Standard Deviation 57.4 fL (36.4-46.3); Red Blood Count 2.98 M/uL (4.20-5.40)
--- NOTE | 2025-02-19 13:11 | Emergency Department Note ---
Impression & Plan Acute UTI, Weakness, Adult failure to thrive ED Provider Note NAME: NADEEN ANNE AGE: 74 SEX: F : 1950 ARRIVES VIA: Walk-In INFORMANT: Patient, ED PROVIDER(S): Gerald Guaman MD CHIEF COMPLAINT: right hip pain HPI: This is a 74-year-old female sent for right hip pain. Patient states that she was in the shower today when she slipped and fell to the ground. She does not member this fall. She notes right hip pain has been going on for few days prior to this injury as well. She reports history of UTI and feels that this may be contributory weakness. She is worried about sepsis. Otherwise she does not have any current head pain, neck pain,, chills, nausea or vomiting. ROS: See above HPI for pertinent positives & negatives. A total of 10 systems reviewed and were otherwise negative. PAST MEDICAL HISTORY: See Below PAST SURGICAL HISTORY: See Below FAMILY HISTORY: See Below SOCIAL HISTORY: See Below HOME MEDICATIONS: See Below ALLERGIES: See Below VITALS: See Below PHYSICAL EXAMINATION: General: resting comfortably in no acute distress Head: Normocephalic and atraumatic Eyes: Normal inspection, extraocular muscles intact Ear, nose, throat: Normal external exam Neck: Normal range of motion Respiratory: lungs clear to auscultation bilaterally Cardiovascular: Regular rate/rhythm, no murmur GI: soft, nontender, no guarding or rebound, stable pelvis with full range of motion of hips Extremities: nontender, moves all extremities, Neuro: The patient awake and alert, appropriately conversive, no focal deficits, symmetric faces Skin: Warm, dry, and intact MEDICAL DECISION MAKING: This is a 74-year-old female presenting for right hip pain. Patient thought she had a fever earlier but her conference planning manager checked and it was negative. She tells me that her heart rate is usually elevated like it is currently. Otherwise we will assess for sepsis and hip fracture. Will do basic blood work, hip x-ray. -Blood work is reviewed showing leukocytosis 12.6 as well as a new anemia to 7.7. CBC differential does show toxic vacuolation, concerning for insidious infection. Electrolytes are within normal limits. -CT head is negative for traumatic injury or other intracranial process -Hip x-ray Independently interpreted by me as no osseous fracture or dislocation, left hip hardware in place -Will admit for weakness, UTI on urinalysis as well as new anemia and toxic vacuolation. 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 The monitor shows a rate of 101 with sinus rhythm. Past Med/Surg History Problem List Adult failure to thrive (Acute) Weakness (Acute) Ambulatory dysfunction PSVT (paroxysmal supraventricular tachycardia) Generalized weakness Chronic osteomyelitis involving right ankle and foot Immunocompromised due to corticosteroids Non-ST elevation NM (NSTEMI) (Acute) Leukocytosis (Acute) Hypomagnesemia (Acute) Elevated lactic acid level (Acute) Sepsis (Acute) Complicated UTI (urinary tract infection) Lower extremity cellulitis Septic shock Shock circulatory Contusion of face (Acute) Head injury (Acute) Fall (Acute) Cellulitis (Acute) Sepsis (Acute) Osteoarthritis of knees, bilateral Knee pain (Acute) Septic prepatellar bursitis (Acute) Paroxysmal atrial fibrillation Wound infection CLABSI (central line-associated bloodstream infection) Bacteremia Fungemia Myocardial strain Tachycardia Rosacea Hypomagnesemia Diarrhea Acute deep vein thrombosis of left lower extremity (Chronic) Traumatic open wound of right lower leg (Acute) Catheter-associated urinary tract infection Sepsis (Acute) Leg wound, right (Acute) Skin tear of left upper extremity (Acute) Chronic refractory osteomyelitis of ankle (Acute) Surgical wound, non healing (Acute) Osteomyelitis of ankle (Acute) Sepsis (Acute) Cellulitis of left lower leg (Acute) Chronic ulcer of right foot (Acute) HX: breast cancer Left breast cancer with surgery and chemo/radiation-left arm restriction Chronic anemia Paroxysmal atrial fibrillation Lower extremity edema (Chronic) Traumatic open wound of left lower leg with delayed healing (Acute) Ulcer of right ankle (Acute) Paroxysmal atrial fibrillation with RVR Hypotension Acute UTI (Acute) UTI (urinary tract infection) (Acute) Status post reverse total replacement of right shoulder (~04/2022) Encounter for pre-operative examination Closed right scapular fracture Sepsis Hypertension Multiple sclerosis Elevated troponin (Acute) Sepsis (Acute) Elevated troponin I level (Acute) Hypotension (Acute) Elevated lactic acid level (Acute) GERD (gastroesophageal reflux disease) controlled, stable per pt CAD (coronary artery disease) Non-obstructive per 06/2021 cardiac cath History of supraventricular tachycardia History of pulmonary embolism ~ 6 yrs ago, IVC filter still in place History of DVT (deep vein thrombosis) ~6 yrs ago Multiple sclerosis (Chronic) Follows with Dr. Walker/[facility] Stable Osteoporosis (Chronic) Neurogenic bladder (Chronic) SELF CATH 2-3 X'S PER DAY *RECENT HOSPITALIZATION FOR UTI Raynaud disease (Chronic) Presence of intrathecal pump (Chronic) baclofen pump in place--status post revision/replacement 08/10/2022 S/P IVC filter (Chronic) H/O left mastectomy (Chronic) with lymph node removal>LEFT ARM RESTRICTION History of open reduction and internal fixation (ORIF) procedure (Chronic) "left hip" S/P partial hysterectomy (Chronic) History of appendectomy (Chronic) Medical History Osteoarthritis of right knee Cellulitis of right lower extremity Anemia Cellulitis Acute leg pain Fever History of recent hospitalization 09/2022 [facility] - sepsis History of blood transfusion Limb alert care status left arm Osteoarthritis of right shoulder History of GI bleed Upper GIB (2019) felt 2/2 NSAID use History of non-ST elevation myocardial infarction (NSTEMI) 06/2021 (had heart cath, no stents) Hx of gastric ulcer 02/2021 Anemia Hypertension controlled, stable per pt Surgical History History of removal of Port-a-Cath (02/09/24) Mediport Removal(Right) - Tristin Lazo DO Port-A-Cath in place (09/29/23) A-Port Insertion, right internal jugular(Right) - Tristin Lazo DO S/p reverse total shoulder arthroplasty right: 05/25/22 LMA#4. No postop issues per anesthesia progress note. History of cardiac cath Cardiac cath (07/06/21; [facility]) > Right dominant coronary system. No evidence of aortic stenosis. Normal left ventricular filling pressures. Nonobstructive disease involving the ostial LAD. No evidence of acute coronary syndrome. Approximately 50% ostial stenosis of the LAD. There was some very mild disease at the ostium of the left circumflex. Recommendations: Medical management. History of esophagogastroduodenoscopy (EGD) History of colonoscopy History of tooth extraction Family History Mother Heart disorder Other No family history of adverse response to anesthesia Social History Smoking Status: Never smoker Tobacco Type: Cigarettes packs per day: 1; Cigarettes Per Day: stopped in 1977; Second Hand Exposure: No; Do You Dip or Chew Tobacco: No; Hx Alcohol Use: No Hx Substance Use: No Preferred Language: Mongolian Communication Ability: Effective Communication Ability Comment: Wears glasses Visual Impairment: No Limitations Hearing Ability: Use of Hearing Aid Seasoner Hand Required: No Beliefs That Will Affect Care: None marital status: / Current Living Situation: Alone Current Living Situation Comment: daughters are an hour away but check on her frequently per pt current occupational status: retired How many Children do You have: 3 Feels Safe at Home: Yes Childhood Exposure to Second-Hand Smoke: Yes Diet: regular caffeine: Yes Assistive Devices: Walker and Wheelchair Allergies Allergies Allergy/AdvReac Type Severity Reaction Status Date / Time No Known Allergies Allergy Verified 02/05/25 11:22 Home Meds Home Medications Medication Instructions Recorded Confirmed cholecalciferol (vitamin D3) 25 2,000 units PO QAM 09/18/18 02/19/25 mcg (1,000 unit) capsule oxybutynin chloride 15 mg 15 mg PO QAM 09/18/18 02/19/25 tablet,extended release 24 hr prednisone 10 mg tablet 10 mg PO QAM 09/18/18 02/19/25 teriflunomide 14 mg tablet 14 mg PO QPM 05/13/22 02/19/25 (Aubagio) doxycycline hyclate 50 mg capsule 50 mg PO Q2D Rosacea 08/10/22 02/19/25 melatonin 3 mg tablet 3 mg PO HS 03/05/23 02/19/25 multivitamin 1 tab PO DAILY 03/05/23 02/19/25 Baclofen Pump 0 mg SC DIRECTED 08/05/23 02/19/25 apixaban 5 mg tablet (Eliquis) 5 mg PO BID 02/03/24 02/19/25 atorvastatin 40 mg tablet 40 mg PO QAM 09/13/24 02/19/25 duloxetine 30 mg capsule,delayed 60 mg PO DAILY 09/13/24 02/19/25 release metoprolol succinate 25 mg 25 mg PO BID 10/01/24 02/19/25 tablet,extended release 24 hr tizanidine 4 mg tablet (Zanaflex) 4 mg PO Q6H Muscle Spasm 10/01/24 02/19/25 Previous Rx's Medication Instructions Recorded ferrous sulfate 325 mg (65 mg 325 mg PO QAM 30 days #30 tabs 10/26/24 iron) tablet,delayed release Results & Data (ED) Vital Signs Vital Signs - 24 hr 02/19/25 12:06 02/19/25 12:30 02/19/25 14:00 Temperature 36.8 C Temperature Source Temporal Artery Scan Pulse Rate 101 H 100 H Pulse Rate [Left Finger] 101 H Respiratory Rate 18 16 Respiratory Effort / Characteristics Respiratory Depth Respiratory Pattern Blood Pressure 118/67 Blood Pressure [Left Arm] 181/122 H Blood Pressure Mean 84 Blood Pressure Mean [Left Arm] 141 Blood Pressure Position [Left Arm] Pulse Oximetry 98 99 Oxygen Delivery Method Room Air Sepsis Recent Fever Within 48 Hours No Sepsis New/Unexplained Change in Mental Status No Sepsis Action Taken by Nursing No Action Required 02/19/25 15:18 02/19/25 16:15 02/19/25 16:25 Temperature Temperature Source Pulse Rate 115 H Pulse Rate [Left Finger] 100 H 113 H Respiratory Rate 16 18 Respiratory Effort / Characteristics Non-Labored Spontaneous Non-Labored Spontaneous Respiratory Depth Normal Normal Respiratory Pattern Regular Blood Pressure Blood Pressure [Left Arm] 170/112 H 166/107 H Blood Pressure Mean Blood Pressure Mean [Left Arm] 131 126 Blood Pressure Position [Left Arm] Lying Pulse Oximetry 93 96 Oxygen Delivery Method Room Air Room Air Sepsis Recent Fever Within 48 Hours Sepsis New/Unexplained Change in Mental Status Sepsis Action Taken by Nursing Laboratory Data 02/19/25 12:52 02/19/25 12:52 Lab Results 02/19/25 02/19/25 Range/Units 12:52 14:37 WBC 12.60 H (4.8-10.8) K/ul RBC 2.98 L (4.20-5.40) M/uL Hgb 7.7 L (12.0-16.0) g/dl Hct 25.1 L (37.0-47.0) % MCV 84.2 (80.0-100.0) fL MCH 25.8 (25.0-34.0) pg MCHC 30.7 L (32.0-36.0) g/dL RDW Std Deviation 57.4 H (36.4-46.3) fL RDW Coeff of Tiffanie 18.7 H (11.5-14.5) % Plt Count 390 (130-400) K/uL MPV 9.5 (9.4-12.4) fL Immature Gran % (Auto) 0.3 % Neut % (Auto) 90.4 % Lymph % (Auto) 3.0 % Bucks % (Auto) 5.9 % Eos % (Auto) 0.2 % Baso % (Auto) 0.2 % Neut # (Auto) 11.39 H (1.40-6.50) K/uL Lymph # (Auto) 0.38 L (1.20-3.40) K/uL Bucks # (Auto) 0.74 H (0.11-0.59) K/uL Eos # (Auto) 0.02 (0.00-0.50) K/uL Baso # (Auto) 0.03 (0.00-0.20) K/uL Immature Gran # (Auto) 0.04 (0.01-0.20) K/uL Toxic Vacuolation 1+ Polychromasia 1+ Hypochromasia Present Sodium 141 (136-145) mmol/L Potassium 3.6 (3.5-5.1) mmol/L Chloride 104 (98-107) mmol/L Carbon Dioxide 30 (21-32) mmol/L Anion Gap 7 (3-11) BUN 31 H (6-23) mg/dl Creatinine 0.83 (0.6-1.2) mg/dl Est Cr Clr Drug Dosing 59.5 ml/min eGFR 74.85 BUN/Creatinine Ratio 37.3 H (10-20) Glucose 100 H (70-99(Fasting)) mg/dl Calcium 9.0 (8.6-10.3) mg/dl Total Bilirubin 0.3 (0.2-1.0) mg/dl AST 18 (13-39) U/L ALT 14 (7-52) U/L Alkaline Phosphatase 61 (34-104) U/L Total Protein 6.2 (6.0-8.3) gm/dl Albumin 3.3 L (3.4-5.0) gm/dl Globulin 2.9 (2.5-4.0) gm/dl Albumin/Globulin Ratio 1.1 (0.9-2) Urine Color Yellow Urine Appearance Clear (Clear) Urine pH 7.0 (4.5-7.5) Ur Specific Elfrida 1.017 (1.000-1.030) Urine Protein Trace H (Negative) Urine Glucose (UA) Negative (Negative) Urine Ketones Negative (Negative) Urine Blood Negative (Negative) Urine Nitrite Negative (Negative) Urine Bilirubin Negative (Negative) Urine Urobilinogen Negative (Negative) Ur Leukocyte Esterase Trace H (Negative) Urine WBC (Auto) 6-10 H (0-5) /hpf Urine RBC (Auto) 3-5 H (0-2) /hpf U Hyaline Cast (Auto) 0-2 (0-2) /lpf U Epithel Cells (Auto) 0-2 (0-2) /hpf Urine Bacteria (Auto) None Seen (None Seen) Administered Medications Discontinued Medications Ceftriaxone Sodium (Rocephin) 2,000 mg in 50 mls @ 100 mls/hr IV NOW STA Stop: 02/19/25 16:35 Last Infusion: 02/19/25 17:04 Dose: Infused Documented By: Admin: 02/19/25 16:12 Dose: 100 mls/hr Documented By: DOROTEO Labetalol HCl (Labetalol Hcl Iv 5 Mg/Ml 20ml) 5 mg IV NOW STA Stop: 02/19/25 16:52 Last Admin: 02/19/25 17:03 Dose: 5 mg Documented By: AILEEN Tizanidine HCl (Tizanidine Hcl 4 Mg Tablet) 4 mg PO NOW STA Stop: 02/19/25 17:17 Last Admin: 02/19/25 17:41 Dose: 4 mg Documented By: DOROTEO Imaging Data Radiologist's Impression: Head CT 02/19/25 13:06 CT head/brain wo con CLINICAL HISTORY: 74 years-old Female with fall, head inj. Acute head trauma status post fall TECHNIQUE: Multiple axial CT images of the head were obtained without contrast. A dose lowering technique was utilized adhering to the principles of PEYTON. CT DOSE: 625.8 mGy.cm COMPARISON: 10/01/2024 FINDINGS: No acute intracranial hemorrhage, midline shift, intracranial mass, hydrocephalus, territorial ischemia or abnormal extra-axial collection. Involutional changes with chronic microvascular ischemic disease. The calvarium is intact. Moderate mucosal thickening of the left sphenoid sinus. Mastoid air cells are clear. Unremarkable soft tissues and orbits. Prior bilateral lens repair. IMPRESSION: No acute intracranial abnormality or calvarial fracture. ACT 112: Negative or not required by law. The above report was generated using voice recognition software. It may contain grammatical, syntax or spelling errors. Electronically signed by: Nasir Mccauley M.D. 02/19/2025 2:40 PM Hip/Pelvis X-Ray 02/19/25 13:37 XR hip LT 2V w pelvis CLINICAL HISTORY: hip pain, fall COMPARISON: 10/01/2024 FINDINGS: Left hip prosthesis shows no hardware complication. There is stable heterotopic ossification adjacent to the proximal left femur. There are stable old right pubic rami fractures. No acute fracture or dislocation seen. Stable IVC filter and left-sided pain pump. There are mild degenerative changes at the right hip. Scoliosis and degenerative disc disease is present at the lumbar spine. IMPRESSION: No acute findings seen. ACT 112: Negative or not required by law. Electronically signed by: López Hernandez M.D. 02/19/2025 2:04 PM Discharge Plan Visit Data Chief Complaint: Hip Pain Stated Complaint: FEVER, NOT FEELING WELL ED Provider: Gerald Guaman Discharge Problem: Acute UTI, Weakness, Adult failure to thrive Patient Disposition: Admitted As Inpatient Discharge Instructions Interventions: ED Discharge Assessment Last Done: 02/19/25 17:58
[2025-02-19 13:30] LABS: Albumin Level 3.3 gm/dl (3.4-5.0); Bilirubin,Total 0.3 mg/dl (0.2-1.0); Potassium 3.6 mmol/L (3.5-5.1)
[2025-02-19 13:36] LABS: Albumin Globulin Ratio 1.1 (0.9-2); BUN Creatinine Ratio 37.3 (10-20); Creatinine Clr Calc Pharmacy 59.5 ml/min; Globulin 2.9 gm/dl (2.5-4.0); Total Protein 6.2 gm/dl (6.0-8.3)
[2025-02-19 13:52] LABS: Basophils # (auto) 0.03 K/uL (0.00-0.20); Basophils % (auto) 0.2 %; Eosinophils # (auto) 0.02 K/uL (0.00-0.50); Eosinophils % (auto) 0.2 %; Hypochromasia Present; Immature Granulocytes # (auto) 0.04 K/uL (0.01-0.20); Immature Granulocytes % (auto) 0.3 %; Lymphocytes # (auto) 0.38 K/uL (1.20-3.40); Monocytes # (auto) 0.74 K/uL (0.11-0.59); Monocytes % (auto) 5.9 %; Neutrophils # (auto) 11.39 K/uL (1.40-6.50); Neutrophils % (auto) 90.4 %; Polychromasia 1+; Toxic Vacuolation 1+
--- NOTE | 2025-02-19 14:07 | XRay Report ---
XR hip LT 2V w pelvis CLINICAL HISTORY: hip pain, fall COMPARISON: 10/01/2024 FINDINGS: Left hip prosthesis shows no hardware complication. There is stable heterotopic ossificati on adjacent to the proximal left femur. There are stable old right pubic rami fractures. No acute fra cture or dislocation seen. Stable IVC filter and left-sided pain pump. There are mild degenerative ch anges at the right hip. Scoliosis and degenerative disc disease is present at the lumbar spine. IMPRESSION: No acute findings seen. ACT 112: Negative or not required by law. Electronically signed by: López Hernandez M.D. 02/19/2025 2:04 PM
--- NOTE | 2025-02-19 14:41 | CT Scan Report ---
CT head/brain wo con CLINICAL HISTORY: 74 years-old Female with fall, head inj. Acute head trauma status post fall TECHNIQUE: Multiple axial CT images of the head were obtained without contrast. A dose lowering tech nique was utilized adhering to the principles of ALARA. CT DOSE: 625.8 mGy.cm COMPARISON: 10/01/2024 FINDINGS: No acute intracranial hemorrhage, midline shift, intracranial mass, hydrocephalus, territorial ischem ia or abnormal extra-axial collection. Involutional changes with chronic microvascular ischemic disea se. The calvarium is intact. Moderate mucosal thickening of the left sphenoid sinus. Mastoid air cells a re clear. Unremarkable soft tissues and orbits. Prior bilateral lens repair. IMPRESSION: No acute intracranial abnormality or calvarial fracture. ACT 112: Negative or not required by law. The above report was generated using voice recognition software. It may contain grammatical, syntax o r spelling errors. Electronically signed by: Nasir Mccauley M.D. 02/19/2025 2:40 PM
[2025-02-19 15:08] LABS: Appearance Urine Clear (Clear); Bacteria Urine Automated None Seen (None Seen); Bilirubin Urine Negative (Negative); Blood Urine Negative (Negative); Cast Urine Automated 0-2 /lpf (0-2); Color Urine Yellow; Epithelial Cell Urine Auto 0-2 /hpf (0-2); Glucose Urine UA Negative (Negative); Ketones Urine Negative (Negative); Leukocyte Esterase Urine Trace (Negative); Nitrite Urine Negative (Negative); Protein Urine Trace (Negative); Specific Gravity Urine 1.017 (1.000-1.030); Urobilinogen Urine Negative (Negative)
[2025-02-19] MEDS: cefTRIAXone SODIUM 2,000 MG/50 ML BAG IV STA (16:12)
[2025-02-19] MEDS: LABETALOL HCL IV 5 MG/ML 20ML IV STA (17:03)
--- NOTE | 2025-02-19 17:17 | History & Physical Report ---
<Statement entered by Robin Childs, DO - 02/19/25 18:14> I have seen and examined the patient and have discussed the case with the advance practice provider. I have reviewed the advanced practitioner's documentation, and I agree with, and take responsibility for that plan of care. Patient seen while in ED. Denies loss of consciousness or even fall at home earlier today. States that she just got overwhelmingly weak and kind of slid to the bathroom floor while holding onto her grab bar. Overall symptoms may be multifactorial, recovering from UTI, MS, PSVT. Plan of care as outlined below I spent a total of 16 minutes coordinating, documenting, and providing care for this patient excluding time spent by another provider/QHP. Date of Service February 19, 2025 Assessment & Plan (1) Generalized weakness: (2) PSVT (paroxysmal supraventricular tachycardia): (3) Ambulatory dysfunction: (4) Multiple sclerosis: Plan This is a 73-year-old female with PMH HTN, CAD, history NSTEMI, paroxysmal atrial fibrillation, history of PE, DVT, chronic anticoagulation on Eliquis, MS, neurogenic bladder requiring self catheterization, chronic anemia, rosacea, chronic osteomyelitis right lower extremity, history of breast cancer, and others listed below presented to ER with complaint of weakness and concern for possible ongoing UTI. #Generalized Weakness #Ground level fall - pt reports getting out of the shower and lowering herself to ground, no injury #Chronic Left hip pain admit to med tele suspect generalized weakness coming from chronic left hip pain, baclofen pump needing refill and recent UTI, PSVT may be contributing no syncopal event monitor on tele, PT/OT #PSVT #Atrial fib #CAD During my assessment in ED, @ 16:12 had a run of SVT lasting less than 6 sec, pt asymptomatic Increase metoprolol to 37.5mg bid and monitor on tele for additional events Last echo revealed EF 70%, grade 1 diastolic dysfunction, mild LVH continue eliquis #HTN pt significantly hypertensive in ED 170s/112s ordered 5mg IV lopressor which significantly improved BP monitor bp closely while hospitalized, metoprolol increased as above #Recurrent UTI pt with recent tx of UTI as outpt, 2 separate cultures, 02/02 from [facility] > 100k Kleb and 02/13 from [facility] 10-100k Kleb she was treated with a sufficient course of oral Keflex, also received dose of Ceftriaxone in ED she continues to feel urgency and c/o yeast - will give diflucan x 1 now await blood/urine culture, urine appears benign #Primary Progression 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 Andrea Walker at [facility], [facility]. 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 Has seen [facility] for pump checks previously. Due for refill #Anemia of chronic disease: hgb stable, baseline 9-10, hgb 7.7 today, recent Iron panel as OP revealed t sat of 6%, iron 16, on oral iron, pt would benefit from Iron Transfusion, consider inpt vs outpt, no s/sx of bleeding #DVT ppx: Eliquis FULL CODE PCP: Simi Hernandez Dispo: admit to med tele, PT/OT consults Pt was seen and examined in collaboration with Dr. Childs, please see addendum I spent a total of 61 minutes coordinating, documenting and providing care for this patient excluding time spent in the performance of separately billed services or time spent by another provider/QHP. History of Present Illness Chief Complaint: Weakness and concern for UTI. Primary Care Provider: KEVIN Lema This is a 73-year-old female with PMH HTN, CAD, history NSTEMI, paroxysmal atrial fibrillation, history of PE, DVT, chronic anticoagulation on Eliquis, MS, neurogenic bladder requiring self catheterization, chronic anemia, rosacea, chronic osteomyelitis right lower extremity, history of breast cancer, and others listed below presented to ER with complaint of weakness and concern for possible ongoing UTI. Pt reports being in the ED on 02/02 and dx with a UTI. She was initially started on bactrim and asked to switch it to keflex. SHe states she started the keflex and got diarrhea so she stopped it. She saw her PCP and had another urine culture at her PCP and was started on a 10 day course of keflex on 02/14. She reports taking this medication for several days. She now feels she has a yeast infection. She states she has been having more pain to her Left hip and that has caused her to not be as mobile. At baseline she uses a wheel chair and can self transfer, but lately she has been more dependent on her wheelchair. She reports over the last 3 days not moving around much. When she was in the shower today she went to grab the bar to get out and she felt so weak that she lowered herself to the ground. She recalls all events and did not hit her head. She denies any syncope. She felt feverish last night, but did not take her temperature. She complained of chills. She denies CP, sob, palpitations, n/v/d or abd pain. She denies dysuria, hematuria, melena or hematochezia. She has chronic urinary urgency/frequency. This has been persistent since the beginning of january. In ED Pt was hypertensive and tachycardic. Her lab work was notable for a mild leukocytosis, hgb 7.7, and urine negative for infection. Her hip/pevis xr was. Her head ct was negative for any acute abnormality. She was given 2g ceftriaxone in ED. Pt reports receiving chronic wound care to [facility] from previous infection. She goes to [facility] once weekly for tubigrib wraps. She denies increased in redness/warmth or drainage. Allergies Allergy/AdvReac Type Severity Reaction Status Date / Time No Known Allergies Allergy Verified 02/05/25 11:22 Home Medications Medication Instructions Recorded Confirmed Type cholecalciferol (vitamin D3) 25 2,000 units PO QAM 09/18/18 02/19/25 History mcg (1,000 unit) capsule oxybutynin chloride 15 mg 15 mg PO QAM 09/18/18 02/19/25 History tablet,extended release 24 hr prednisone 10 mg tablet 10 mg PO QAM 09/18/18 02/19/25 History teriflunomide 14 mg tablet 14 mg PO QPM 05/13/22 02/19/25 History (Aubagio) doxycycline hyclate 50 mg capsule 50 mg PO Q2D Rosacea 08/10/22 02/19/25 History melatonin 3 mg tablet 3 mg PO HS 03/05/23 02/19/25 History multivitamin 1 tab PO DAILY 03/05/23 02/19/25 History Baclofen Pump 0 mg SC DIRECTED 08/05/23 02/19/25 History apixaban 5 mg tablet (Eliquis) 5 mg PO BID 02/03/24 02/19/25 History atorvastatin 40 mg tablet 40 mg PO QAM 09/13/24 02/19/25 History duloxetine 30 mg capsule,delayed 60 mg PO DAILY 09/13/24 02/19/25 History release metoprolol succinate 25 mg 25 mg PO BID 10/01/24 02/19/25 History tablet,extended release 24 hr tizanidine 4 mg tablet (Zanaflex) 4 mg PO Q6H Muscle Spasm 10/01/24 02/19/25 History ferrous sulfate 325 mg (65 mg 325 mg PO QAM 30 days #30 tabs 10/26/24 02/19/25 Rx iron) tablet,delayed release Past Med/Surg History Problem List Ambulatory dysfunction PSVT (paroxysmal supraventricular tachycardia) Generalized weakness Chronic osteomyelitis involving right ankle and foot Immunocompromised due to corticosteroids Non-ST elevation HI (NSTEMI) (Acute) Leukocytosis (Acute) Hypomagnesemia (Acute) Elevated lactic acid level (Acute) Sepsis (Acute) Complicated UTI (urinary tract infection) Lower extremity cellulitis Septic shock Shock circulatory Contusion of face (Acute) Head injury (Acute) Fall (Acute) Cellulitis (Acute) Sepsis (Acute) Osteoarthritis of knees, bilateral Knee pain (Acute) Septic prepatellar bursitis (Acute) Paroxysmal atrial fibrillation Wound infection CLABSI (central line-associated bloodstream infection) Bacteremia Fungemia Myocardial strain Tachycardia Rosacea Hypomagnesemia Diarrhea Acute deep vein thrombosis of left lower extremity (Chronic) Traumatic open wound of right lower leg (Acute) Catheter-associated urinary tract infection Sepsis (Acute) Leg wound, right (Acute) Skin tear of left upper extremity (Acute) Chronic refractory osteomyelitis of ankle (Acute) Surgical wound, non healing (Acute) Osteomyelitis of ankle (Acute) Sepsis (Acute) Cellulitis of left lower leg (Acute) Chronic ulcer of right foot (Acute) HX: breast cancer Left breast cancer with surgery and chemo/radiation-left arm restriction Chronic anemia Paroxysmal atrial fibrillation Lower extremity edema (Chronic) Traumatic open wound of left lower leg with delayed healing (Acute) Ulcer of right ankle (Acute) Paroxysmal atrial fibrillation with RVR Hypotension Acute UTI (Acute) UTI (urinary tract infection) (Acute) Status post reverse total replacement of right shoulder (~04/2022) Encounter for pre-operative examination Closed right scapular fracture Sepsis Hypertension Multiple sclerosis Elevated troponin (Acute) Sepsis (Acute) Elevated troponin I level (Acute) Hypotension (Acute) Elevated lactic acid level (Acute) GERD (gastroesophageal reflux disease) controlled, stable per pt CAD (coronary artery disease) Non-obstructive per 06/2021 cardiac cath History of supraventricular tachycardia History of pulmonary embolism ~ 6 yrs ago, IVC filter still in place History of DVT (deep vein thrombosis) ~6 yrs ago Multiple sclerosis (Chronic) Follows with Dr. Walker/[facility] Stable Osteoporosis (Chronic) Neurogenic bladder (Chronic) SELF CATH 2-3 X'S PER DAY *RECENT HOSPITALIZATION FOR UTI Raynaud disease (Chronic) Presence of intrathecal pump (Chronic) baclofen pump in place--status post revision/replacement 08/10/2022 S/P IVC filter (Chronic) H/O left mastectomy (Chronic) with lymph node removal>LEFT ARM RESTRICTION History of open reduction and internal fixation (ORIF) procedure (Chronic) "left hip" S/P partial hysterectomy (Chronic) History of appendectomy (Chronic) Medical History Osteoarthritis of right knee Cellulitis of right lower extremity Anemia Cellulitis Acute leg pain Fever History of recent hospitalization 09/2022 [facility] - sepsis History of blood transfusion Limb alert care status left arm Osteoarthritis of right shoulder History of GI bleed Upper GIB (2019) felt 2/2 NSAID use History of non-ST elevation myocardial infarction (NSTEMI) 06/2021 (had heart cath, no stents) Hx of gastric ulcer 02/2021 Anemia Hypertension controlled, stable per pt Surgical History History of removal of Port-a-Cath (02/09/24) Mediport Removal(Right) - Tristin Lazo DO Port-A-Cath in place (09/29/23) A-Port Insertion, right internal jugular(Right) - Tristin Lazo DO S/p reverse total shoulder arthroplasty right: 05/25/22 LMA#4. No postop issues per anesthesia progress note. History of cardiac cath Cardiac cath (07/06/21; [facility]) > Right dominant coronary system. No evidence of aortic stenosis. Normal left ventricular filling pressures. Nonobstructive disease involving the ostial LAD. No evidence of acute coronary syndrome. Approximately 50% ostial stenosis of the LAD. There was some very mild disease at the ostium of the left circumflex. Recommendations: Medical management. 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 Required: No Beliefs That Will Affect Care: None marital status: / Current Living Situation: Alone Current Living Situation Comment: daughters are an hour away but check on her frequently per pt current occupational status: retired How many Children do You have: 3 Feels Safe at Home: Yes Childhood Exposure to Second-Hand Smoke: Yes Diet: regular caffeine: Yes Assistive Devices: Walker and Wheelchair Review of Systems Review of Systems: All systems reviewed & are unremarkable except as noted in HPI & below Physical Exam Physical Exam: Constitutional: WD/WN, F, vitals as above, NAD, sitting up in bed, pleasant, conversing easily Head: Normocephalic, Atraumatic Eyes: conjunctivae normal, anicteric sclerae ENMT: external ear and nose normal, oropharynx normal Neck: trachea midline, no thyromegaly normal visual inspection Respiratory: normal respiratory effort, lungs clear to auscultation, no wheeze, rales, rhonchi. Normal insp/exp effort, no accessory muscle use Cardiovascular: tachycardic rate, regular rhythm 2/6 landen best cardiac apex, chronic venous stasis changes, LLE edema, RLE tubigrib wrap in place Vessels: no JVD or carotid bruit Chest: normal inspection of chest Abdomen: normal bowel sounds, soft, nontender, no hepatosplenomegaly Musculoskeletal: no cyanosis or clubbing, arom x 4 Skin: no rashes, warm and dry normal turgor Neurologic: no face palsy, no dysarthria CN's II-XI intact bilaterally and moves all extremities Psychiatric: A+Ox3, euthymic affect Results & Data Results & Data Vital Signs (Past 12 Hours) Vital Signs Temp Pulse Pulse Resp BP BP Pulse Ox 02/19/25 16:46 109 H 02/19/25 16:45 185 H 02/19/25 16:25 115 H 02/19/25 16:15 113 H 18 166/107 H 96 02/19/25 15:18 100 H 16 170/112 H 93 02/19/25 14:00 101 H 16 181/122 H 99 02/19/25 12:30 100 H 02/19/25 12:06 36.8 C 101 H 18 118/67 98 O2 Del Method 02/19/25 16:46 02/19/25 16:45 02/19/25 16:25 02/19/25 16:15 Room Air 02/19/25 15:18 Room Air 02/19/25 14:00 02/19/25 12:30 02/19/25 12:06 Room Air Laboratory Results I have independently reviewed and interpreted patient's admitting labs including CBC, CMP, UA Diagnostic Findings Head CT 02/19/25 13:06 CT head/brain wo con CLINICAL HISTORY: 74 years-old Female with fall, head inj. Acute head trauma status post fall TECHNIQUE: Multiple axial CT images of the head were obtained without contrast. A dose lowering technique was utilized adhering to the principles of ALARA. CT DOSE: 625.8 mGy.cm COMPARISON: 10/01/2024 FINDINGS: No acute intracranial hemorrhage, midline shift, intracranial mass, hydrocephalus, territorial ischemia or abnormal extra-axial collection. Involutional changes with chronic microvascular ischemic disease. The calvarium is intact. Moderate mucosal thickening of the left sphenoid sinus. Mastoid air cells are clear. Unremarkable soft tissues and orbits. Prior bilateral lens repair. IMPRESSION: No acute intracranial abnormality or calvarial fracture. ACT 112: Negative or not required by law. The above report was generated using voice recognition software. It may contain grammatical, syntax or spelling errors. Electronically signed by: Nasir Mccauley M.D. 02/19/2025 2:40 PM Hip/Pelvis X-Ray 02/19/25 13:37 XR hip LT 2V w pelvis CLINICAL HISTORY: hip pain, fall COMPARISON: 10/01/2024 FINDINGS: Left hip prosthesis shows no hardware complication. There is stable heterotopic ossification adjacent to the proximal left femur. There are stable old right pubic rami fractures. No acute fracture or dislocation seen. Stable IVC filter and left-sided pain pump. There are mild degenerative changes at the right hip. Scoliosis and degenerative disc disease is present at the lumbar spine. IMPRESSION: No acute findings seen. ACT 112: Negative or not required by law. Electronically signed by: López Hernandez M.D. 02/19/2025 2:04 PM Medications Administered Medication List Discontinued Medications Ceftriaxone Sodium (Rocephin) 2,000 mg in 50 mls @ 100 mls/hr IV NOW STA Stop: 02/19/25 16:35 Last Infusion: 02/19/25 17:04 Dose: Infused Documented By: Admin: 02/19/25 16:12 Dose: 100 mls/hr Documented By: DOROTEO Labetalol HCl (Labetalol Hcl Iv 5 Mg/Ml 20ml) 5 mg IV NOW STA Stop: 02/19/25 16:52 Last Admin: 02/19/25 17:03 Dose: 5 mg Documented By: AILEEN ECG Additional Comments: I have independently reviewed and interpreted patient's admitting EKG which revealed: Tele strip revealed PSVT HR in the 180s COVID-19 Results Results COVID-19 Adm Lab Results: RBC 2.98 M/uL (4.20-5.40) L 02/19/25 WBC 12.60 K/ul (4.8-10.8) H 02/19/25 Hgb 7.7 g/dl (12.0-16.0) L 02/19/25 Hct 25.1 % (37.0-47.0) L 02/19/25 Plt Count 390 K/uL (130-400) 02/19/25 Neutrophils (%) (Auto) 90.4 % 02/19/25 Lymphocytes (%) (Auto) 3.0 % 02/19/25 Monocytes # (Auto) 0.74 K/uL (0.11-0.59) H 02/19/25 Eosinophils # (Auto) 0.02 K/uL (0.00-0.50) 02/19/25 Immature Granulocyte % (Auto) 0.3 % 02/19/25 Neutrophils # (Auto) 11.39 K/uL (1.40-6.50) H 02/19/25 Lymphocytes # (Auto) 0.38 K/uL (1.20-3.40) L 02/19/25 Monocytes # (Auto) 0.74 K/uL (0.11-0.59) H 02/19/25 Eosinophils # (Auto) 0.02 K/uL (0.00-0.50) 02/19/25 Basophils # (Auto) 0.03 K/uL (0.00-0.20) 02/19/25 Immature Granulocyte # (Auto) 0.04 K/uL (0.01-0.20) 5 Polychromasia 1+ 02/19/25 Hypochromasia Present 02/19/25 Toxic Vacuolation 1+ 02/19/25 Na 141 mmol/L (136-145) 02/19/25 K 3.6 mmol/L (3.5-5.1) 02/19/25 Cl 104 mmol/L (98-107) 02/19/25 CO2 30 mmol/L (21-32) 02/19/25 Anion Gap 7 (3-11) 02/19/25 BUN 31 mg/dl (6-23) H 02/19/25 Creatinine 0.83 mg/dl (0.6-1.2) 02/19/25 BUN/Creatinine Ratio 37.3 (10-20) H 02/19/25 Glucose Level 100 mg/dl (70-99(Fasting)) H 02/19/25 Ca 9.0 mg/dl (8.6-10.3) 02/19/25 Total Bilirubin 0.3 mg/dl (0.2-1.0) 02/19/25 AST/SGOT 18 U/L (13-39) 02/19/25 ALT/SGPT 14 U/L (7-52) 02/19/25 Alkaline Phosphatase 61 U/L (34-104) 02/19/25 Total Protein 6.2 gm/dl (6.0-8.3) 02/19/25 Albumin 3.3 gm/dl (3.4-5.0) L 02/19/25 Globulin 2.9 gm/dl (2.5-4.0) 02/19/25 Albumin/Globulin Ratio 1.1 (0.9-2) 02/19/25 Code Status & VTE Plan Code Status Full Code VTE Prophylaxis Plan VTE Prophylaxis will be ordered: No Reason for no VTE drug order: Treatment not indicated
[2025-02-19] MEDS: tiZANidine HCL 4 MG TABLET PO STA (17:41)
[2025-02-19] MEDS ORDERED: POLYETHYLENE (MIRALAX) 17 GM PACK PO PRN (18:45)
[2025-02-19] MEDS ORDERED: FAMOTIDINE 20 MG TAB PO PRN (18:45)
[2025-02-19] MEDS ORDERED: ACETAMINOPHEN 325 MG TAB PO PRN (18:45)
[2025-02-19] MEDS ORDERED: ONDANSETRON INJ 2 MG/ML 2 ML VIAL IV PRN (18:45)
[2025-02-19] MEDS ORDERED: tiZANidine HCL 4 MG TABLET PO SCH (19:30)
[2025-02-19] MEDS: FLUCONAZOLE 50 MG TAB PO ONE (21:03)
[2025-02-19] MEDS: METOPROLOL SUCC 25MG EXT REL TAB PO SCH (21:04)
[2025-02-19] MEDS: MELATONIN 3 MG TAB PO SCH (21:04)
[2025-02-19] MEDS: DICLOFENAC SOD 1% GEL 100 GM TUBE EXT SCH (21:04)
[2025-02-19] MEDS: APIXABAN 5 MG TABLET PO SCH (21:04)
--- OUTSIDE RECORDS SUMMARY | 2025-02-19 21:41 | External Medical Summary | Summary of Care ---
Author Name Unknown Organization [facility] Address [address] [place] [address] Phone [phone] Care Team Providers Care Director Work Name Role Phone Simi Hernandez Primary Care Provider Reason for Visit * Reason Onset Date Comments Test Results 02/14/2025 Encounter Details Date Type Department Care Team (Late st Contact Info) Description 02/14/2025 Telephone Family Practice [facility] 132 [facility] [place] [address] Simi Hernandez CRNP 132 [facility] [place] [address] Test Results Allergies No known active allergiesdocumented as of this encounter (statuses as of 02/15/2025) Medications VITAMIN D 1000 UNITS PO CAPSIndications:Os teoporosis One capsule daily 30 Cap 5 3 Active Aubagio 14 MG Oral Tablet Take 1 Tablet by mouth in the morning. Takes at night. Active Melatonin 3 MG Oral Tablet Disintegrating Take 3 mg by mouth every night at bedtime. 30 Tablet 2 Active Multivitamin Adult Oral Tablet Take by mouth 1 Tablet daily . 30 Tablet 2 Active Omeprazole 40 MG Oral Capsule Delayed [...] by mouth in the morning. 4 Active Atorvastatin Calcium 40 MG Oral Tablet (Lipitor) Take 1 Tablet by mouth in the morning. 90 Tablet 3 4 Active Eliquis 5 MG Oral Tablet Take 1 tablet by mouth twice daily 180 Tablet 1 4 Active Ferrous Sulfate 325 (65 Fe) MG Oral Tablet Delayed Release Take 1 Tablet by mouth in the morning. 4 Active Doxycycline Monohydrate 100 MG Oral Tablet Take 1 Tablet by mouth in the morning and 1 Tablet before bedtime. 60 Tablet 3 4 Active Azelaic Acid 15 % External Gel (Finacea)Indicatio ns:Rosacea Apply to face twice daily as needed 50 g 1 5 Active tiZANidine HCl 4 MG Oral Tablet (Zanaflex) Take 1 Tablet by mouth every 6 hours as needed for Muscle spasms. 360 Tablet 5 Active predniSONE 10 MG Oral Tablet (Deltasone)Indicat ions:Multiple sclerosis (HCC) Take 1 tablet by mouth once daily 90 Tablet 5 Active oxyBUTYnin Chloride ER 15 MG Oral Tablet Extended Release 24 Hour (Ditropan XL)Indications:Jameel rogenic bladder TAKE 1 TABLET BY MOUTH IN THE MORNING 90 Tablet 5 Active DULoxetine HCl 60 MG Oral Capsule Delayed Release Particles (Cymbalta) Take 1 Capsule by mouth in the morning. Do not cut, crush or chew. 30 Capsule 5 5 Active Diclofenac Sodium 1 % External Gel (Voltaren) Apply topically to affected area 4 times a day. 350 g 4 5 Active Nystatin 262821 UNIT/ML Mouth/Throat Suspension Swish and swallow 5 mL in the morning and 5 mL at noon and 5 mL in the evening and 5 mL before bedtime. For thrush.. 240 mL 1 5 025 Active Cephalexin 500 MG Oral Capsule (Keflex) Take 1 Capsule by mouth in the morning and 1 Capsule before bedtime. From [facility] on 02/05/25 for klebsiella uti . Active Cephalexin 500 MG Oral Capsule (Keflex) Take 1 Capsule by mouth in the morning and 1 Capsule before bedtime. Do all this for 10 days. 20 Capsule 5 025 Active documented as of this encounter (statuses as of 02/15/2025) Active Problems Problem Noted Date Diagnosed Date Pressure injury of coccygeal region, stage 2 03/2025 Ulcer of lower extremity, ri ght, limited to breakdown of skin 01/30/2025 Cellulitis of right lower extremity 09/11/2024 Polyneuropathy [...] Debility 11/05/2022 Coronary artery disease invo lving [place] coronary artery of [place] heart without angina pectoris 11/05/2022 Medical home [...] as of this encounter (statuses as of 02/15/2025) Resolved Problems Problem Noted Date Diagnosed Date [...] as of this encounter (statuses as of 02/15/2025) Immunizations Name Administration Dates Next Due COVID-19 mRNA, LNP-s, No Pre serve, 2-Dose Series ([employer]) 04/18/2022,11/12/2021,01/28/2021,01/14 COVID-19, LNP-s, No Preserve , Delfino-sucrose, Ages 12+ (Pfizer) 06/04/2022 PPD 06/05/2018 Pneumococcal Conjugate Vacc, 13 [...] 08/30/2024 Transportation Needs Answer Date Record ed Do you have trouble getting a ride to medical visits or work? (Adult - for ages 18 years and over) Not on file 08/30/2024 Does your family have a hard [...] place to sleep at night? No 08/30/2024 Do you think you are at risk of becoming homeless? (Adult - for ages 18 years and over) Not on file 08/30/2024 Does your family worry about paying [...] ages 0-17 years) Not on file 08/30/2024 Food Insecurity Answer Date Recorded Within the past 12 months, y ou worried that your food would run out before you got the money to buy more. Never true 08/30/20 24 Within the past 12 months, t he food you bought just didn't last and you didn't have money to get more. Never true 08/30/2024 Do you need food for this week? No 08/30/2024 Comments No Sex and Gender Information Value Date Recorded Sex Assigned at Female 02/07/2020 1:52 PM EDT Legal Sex Female 5:24 AM EST Gender Identity Female 02/07/2020 1:52 PM EDT Sexual Orientation Straight 02/07/2020 1: 52 PM EDT documented as of this encounter Miscellaneous Notes * Telephone Encounter - Hannah Abernathy LPN - 02/14/2025 4:36 PM EDT Left detailed message on cell vm with this information Called pt, aware of advice and test results. Will get tomorrow. * Telephone Encounter - Simi Hernandez CRNP - 02/14/2025 4:30 PM EDT Urine culture pending but has been positive for e Coli and klebsiella in past. U/a suspicious for infection. Recommend start Keflex 500 mg twice daily for 7 daysl I sent to pharmacy Kirstin, MSN, KEVIN [facility] documented in this encounter Plan of Treatment Upcoming Encounters Date Type Department Care Team (Late st Contact Info) Description 03/01/2025 3:30 PM EDT Office Visit Cardiology, [facility] 132 [place] [address] Flaca Basilio CRNP 132 [place] [address] 03/06/2025 1:00 PM EDT Office Visit Family Practice [facility] 132 [place] [address] Simi Hernandez CRNP 132 [place] [address] 03/06/2025 1:40 PM EDT Office Visit Dermatology [facility] [address] [facility] [address] [address] [place] [address] Lisa Garcia PA-C [address] [place] [address] 03/25/2025 10:40 AM EDT Office Visit Neurology [facility] [address] [place] [address] Andrea Walker MD [address] [place] [address] 04/05/2025 1:00 PM EDT Office Visit [facility] 132 [place] [address] Simi Hernandez CRNP 132 [place] [address] 04/23/2025 11:40 AM EDT Office Visit Infectious Disease, [address] [address] Harriet Sierra MD [address] [place] [address] 05/03/2025 1:00 PM EDT Office Visit [facility] 132 [place] [address] Simi [facility] CRNP [facility] [address] 05/16/2025 8:00 AM EDT Office Visit [address] [id number] Edu Chaudhary DO [address] [place], [place] [id number] 05/30/2025 1:00 PM EDT Office Visit [facility] [address] Simi Hernandez CRNP [address] [place], [place] [address] 06/27/2025 1:00 PM EDT Office Visit [facility] [place] [address] Simi Hernandez CRNP [address] [place] [address] 08/01/2025 1:00 PM EDT Office Visit [facility] [address] [facility] [place] [address] Simi Hernandez CRNP [address] [place] [address] 08/27/2025 11:15 AM EDT Office Visit [facility], [facility] [place] [id number] Beau Coon MD [address] [place] [address] 08/29/2025 1:00 PM EDT Office Visit [facility] [address] [facility] [place] [address] Simi Hernandez CRNP [facility] [place] [address] 10/03/2025 1:00 PM EST Office Visit [facility] [address] [facility] [place] [address] Simi Hernandez CRNP [address] [place] [address] 10/31/2025 1:00 PM EST Office Visit [facility] [place] [address] [place] [address] Simi Hernandez CRNP [address] [place] [address] Scheduled Procedures Name Priority Associated Diagnoses Date/Ti [...] (REFER TO SMARTSET #1146) 05/24/2020 Pneumococcal Vaccine: 50+ Years (3 of 3 - PPSV23, PCV20 or PCV21) 09/24/2020 07/30/2020, 07/05/2011 Adult Wellness Visit 02/06/2021 02/07/2020 Mammogram 04/15/2024 04/15/2023, 03/28, 12/17/2019, Additional history exists Depression Monitoring 08/30/2025 08/30/2024 GFR 01/30/2026 01/30/2025, 10/28, 08/22/2024, Additional history exists Colonoscopy 05/05/2028 05/05/2023, 06/2023, 11/04/2022, Additional history exists Colorectal Cancer Screening 05/05/2028 COVID-19 Vaccine Discontinued 06/04/2022, , 11/12/2021, Additional history exists RETIRED - COLONOSCOPY-EVERY 5 YRS AGES 18-100 Discontinued 05/05/2023, 05/05/2023, 11/04/2022, Additional history exists Influenza Vaccine (FLU shot) Completed 09/26/2024, 10/13/2023, 10/15/2022, Additional history exists VITAMIN D LEVEL ONCE IN A LIFETIME-USE SMARTSET# 03221 Completed 11/09/2024, 01/17/2023, 04/05/2022, Additional history exists HPV (Gardasil) Vaccine Aged Out No lo nger eligible based on patient's age to complete this topic Hepatitis B Vaccine Aged Out No longe r eligible based on patient's age to complete this topic MENINGOCOCCAL (MENACTRA/MENVEO) Aged Out No longer eligible based on patient's age to complete this topic Meningitis B Vaccine (Bexsero/Trumemba) Aged Out No longer eligible based on patient's age to complete this topic Zoster Vaccines Discontinued documented as of this encounter Medical Devices Not on filedocumented as of this encounter Advance Directives * Full Code (Latest Code Status on File) Date Activated Date Inactivated Comments 01/06/2018 7:45 AM 01/06/2018 2:47 PM This order re flects the patients wishes and were consensually agreed [...] and were consensually agreed upon. Care Teams Director Work Relationship Specialty Start Date End Date Simi Hernandez CRNP [address] [place] [address] PCP - General Nurse Practitioner 10/05/22 documented as of this encounter
--- OUTSIDE RECORDS SUMMARY | 2025-02-19 21:41 | External Medical Summary ---
Author Name Unknown Address Unknown Organization [facility] [place] [address] [place] [address] Laboratory Report Ordering Provider Test Date Status GATITO ANDREA 02/14/2025 11:57:20 Final Observation Date Value Abnormality Reference (Units ) Status Color of Urine by Auto 02/14/2025 11:57:20 Yellow Light Yellow, Yellow, Dark Yellow Final Clarity, Urine 02/14/2025 11:57:20 Turbid Abnormal Clear Final Glucose [Mass/volume] in Urine by Automated test strip 02/14/2025 11:57:20 Negative Negative (mg/dL) Final Bilirubin.total [Presence] in Urine by Automated test strip 02/14/2025 11:57:20 Negative Negative Final Ketones [Mass/volume] in Urine by Automated test strip 02/14/2025 11:57:20 Negative Negative (mg/dL) Final Specific gravity, Urine 02/14/2025 11:57:20 1.025 1.003-1.030 Final Hemoglobin [Presence] in Urine by Automated test strip 02/14/2025 11:57:20 Small Abnormal Negative Final pH, Urine 02/14/2025 11:57:20 5.5 5.0-7.5 (Units) Final Protein [Mass/volume] in Urine by Automated test strip 02/14/2025 11:57:20 Trace Abnormal Negative (mg/dL) Final Urobilinogen [Mass/volume] in Urine by Automated test strip 02/14/2025 11:57:20 0.2 0.2, 1.0 (mg/dL) Final Nitrite [Presence] in Urine by Automated test strip 02/14/2025 11:57:20 Positive Abnormal Negative Final Leukocyte esterase [Presence] in Urine by Automated test strip 02/14/2025 11:57:20 Small Abnormal Negative Final RBC, Urine 02/14/2025 11:57:20 10-19 Abnormal 0-2 (/HPF) Final WBC, Urine 02/14/2025 11:57:20 10-19 Abnormal 0-2 (/HPF) Final Bacteria [#/area] in Urine sediment by Microscopy high power field 02/14/2025 11:57:20 101-150 Abnormal 0-25 (/HPF) Final Calcium oxalate crystals [#/area] in Urine sediment by Microscopy high power field 02/14/2025 11:57:20 1-4 Abnormal None (/HPF) Final Crystals.amorphous [#/area] in Urine sediment by Microscopy high power field 02/14/2025 11:57:20 Many Abnormal None (/HPF) Final CULTURE, URINE - [facility] 02/14/2025 11:57:20 Final Quantitative urine culture t o be performed Performing Location [facility] [place] [address]
--- OUTSIDE RECORDS SUMMARY | 2025-02-19 21:41 | External Medical Summary | Summary of Care ---
Author Name Unknown Organization [facility] Address [address] [place] [address] Phone [phone] Care Team Providers Care Professor Of German Name Role Phone Simi Hernandez Primary Care Provider Reason for Visit * Reason Comments Outpatient Testing * Auth/Cert Specialty Diagnoses / Procedures Referred By Kenya soliz Referred To Contact Laboratory, [facility] 132 [place] [address] Phone: tel: fax: Referral ID Status Reason Start Date Expiration Date Visits Re quested Visits Authorized [id number] Encounter Details Date Type Department Care Team (Late st Contact Info) Description 02/14/2025 12:00 PM EDT Laboratory Laboratory, [facility] 132 [facility] [address] [place], Specimen Drop Off [facility] 132 [place] [address] Leukocytosis, unspecified type; Frequent UTI; Urinary urgency Allergies No known active allergiesdocumented as of this encounter (statuses as of 02/14/2025) Medications VITAMIN D 1000 UNITS PO CAPSIndications:Os [...] day. 350 g 4 5 Active Nystatin 097788 UNIT/ML Mouth/Throat Suspension Swish and swallow 5 mL in the morning and 5 mL at noon and 5 mL in the evening and 5 mL before bedtime. For thrush.. 240 mL 1 5 025 Active Cephalexin 500 MG Oral Capsule (Keflex) Take 1 Capsule by mouth in the morning and 1 Capsule before bedtime. From [facility] on 02/05/25 for klebsiella uti . Active documented as of this encounter (statuses as of 02/14/2025) Active Problems Problem Noted Date Diagnosed Date [...] Coronary artery disease invo lving [place] coronary artery of [place] heart without angina pectoris 11/05/2022 Medical home [...] as of this encounter (statuses as of 02/14/2025) Resolved Problems Problem Noted Date Diagnosed Date [...] as of this encounter (statuses as of 02/14/2025) Immunizations Name Administration Dates Next Due COVID-19 mRNA, LNP-s, No Pre serve, 2-Dose Series (Pfizer) 04/18/2022,11/12/2021,01/28/2021,01/14 COVID-19, LNP-s, No Preserve , Delfino-sucrose, [...] PM EDT documented as of this encounter Plan of Treatment Upcoming Encounters Date Type Department Care Team (Late st Contact Info) Description 03/01/2025 3:30 PM EDT Office Visit Cardiology, [facility] 132 [place] [address] Flaca Basilio CRNP 132 [place] [address] 03/06/2025 1:00 PM EDT Office Visit Family [facility] 132 [place] [address] Simi Hernandez CRNP [address] [place] [address] 03/06/2025 1:40 PM EDT Office Visit Dermatology [facility] [address] [place] [address] Lisa Garcia PA-C [address] [place] [address] 03/25/2025 10:40 AM EDT Office Visit Neurology [facility] [address] [place] [address] Andrea Walker MD 200 [facility] [place] [address] 04/05/2025 1:00 PM EDT Office Visit [facility] 132 [place] [address] Simi Hernandez CRNP [address] [place] [address] 04/23/2025 11:40 AM EDT Office Visit Infectious Disease, [address] [address] Harriet Sierra MD [address] [place] [address] 05/03/2025 1:00 PM EDT Office Visit [facility] 132 [facility] [place] [address] Simi Hernandez CRNP [facility] [place] [address] 05/16/2025 8:00 AM EDT Office Visit [address] [address] Edu Chaudhary DO [address] [place] [address] 05/30/2025 1:00 PM EDT Office Visit [facility] [address] [place] [address] Simi Hernandez CRNP 132 [facility] [place] [address] 06/27/2025 1:00 PM EDT Office Visit [facility] [place] [address] Simi Hernandez CRNP [address] [place] [address] 08/01/2025 1:00 PM EDT Office Visit [facility] [address] [place] [address] Simi Hernandez CRNP [address] [place] [address] 08/27/2025 11:15 AM EDT Office Visit Urology, [facility] [address] [place] [address] Beau Coon MD [address] [place] [address] 08/29/2025 1:00 PM EDT Office Visit [facility] [place] [address] Simi Hernandez CRNP [address] [place] [address] 10/03/2025 1:00 PM EST Office Visit [facility] [address] [place] [address] Simi Hernandez CRNP [address] [place] [address] 10/31/2025 1:00 PM EST Office Visit [facility] 132 [facility] [place] [address] Simi Hernandez CRNP [address] [place] [address] Pending Results Name Type Priority Associated Diagnoses Date /Time CULTURE, URINE, QUANTITATIVE Lab Routine Leukocytosis, unspecified type 02/14/2025 11:57 AM EDT Scheduled Procedures Name Priority Associated [...] D LEVEL ONCE IN A LIFETIME-USE SMARTSET# [id number] Completed 11/09/2024, 01/17/2023, 04/05/2022, Additional history exists [...] Diagnosis Comments URINALYSIS, REFLEX TO CULTURE Routine 02/14/2025 11:57 AM EDT Leukocytosis, unspecified type URINALYSIS, REFLEX TO CULTURE (CUP ONLY) Routine 02/14/2025 11:57 AM EDT Leukocytosis, unspecified type URINALYSIS, REFLEX TO CULTURE (NOT FOR NEUTROPENIC PATIENTS) Routine 02/14/2025 11:57 AM EDT Leukocytosis, unspecified type documented in this encounter Results * (ABNORMAL) URINALYSIS, REFLEX TO CULTURE (02/14/2025 11:57 AM EDT) Color, Urine Yellow Light Yellow, Yellow, Dark Yellow 02/14/2025 1:02 PM EDT [facility] [place] [facility] Clarity, Urine Turbid(A) Clear 02/14/2025 1:02 PM EDT [facility] [place] [facility]10 Glucose, Urine Negative Negative mg/dL 02/14/2025 1:02 PM EDT [facility] [place] [facility] Bilirubin, Urine Negative Negative 02/14/2025 1:02 PM EDT [facility] [place] [facility]10 Ketone, Urine Negative Negative mg/dL 02/14/2025 1:02 PM EDT [facility] [place] [facility] Specific [place], Urine 1.025 1.003 - 1.030 02/14/2025 1:02 PM EDT [facility] [place] [facility] Blood, Urine Small(A) Negative 02/14/2025 1:02 PM EDT [facility] [place] [facility]10 pH, Urine 5.5 5.0 - 7.5 Units 02/14/2025 1:02 PM EDT [facility] [place] [facility]10 Protein, Urine Trace(A) Negative mg/dL 02/14/2025 1:02 PM EDT [facility] [place] [facility]10 Urobilinogen, Urine 0.2 0.2, 1.0 mg/dL 02/14/2025 1:02 PM EDT [facility] [place] [facility]10 Nitrite, Urine Positive(A) Negative 02/14/2025 1:02 PM EDT [facility] [place] [facility] Esterase, Urine Small(A) Negative 02/14/2025 1:02 PM EDT [facility] [place] [facility]10 RBC, Urine 10-19(A) 0 - 2 /HPF 02/14/2025 1:02 PM EDT [facility] [place] [facility]10 WBC, Urine 10-19(A) 0 - 2 /HPF 02/14/2025 1:02 PM EDT [facility] [place] 5710 Bacteria, Urine 101-150(A) 0 - 25 /HPF 02/14/2025 1:02 PM EDT [facility] 5710 Calcium Oxalate Crystal, Urine 1-4(A) None /HPF 02/14/2025 1:02 PM EDT [facility] 5710 Amorphous Crystals, Urine Many(A) None /HPF 02/14/2025 1:02 PM EDT [facility] [place] 5710 Culture, Urine 02/14/2025 1:02 PM EDT LABORATORY [address] Comment:Quantitative urine c ulture to be performed Urine Urine specimen obtained by clean catch procedure / Unknown Non-blood Collection / Unknown 02/14/2025 11:57 AM EDT 02/14/2025 11:57 AM EDT [employer] [facility] URINE ORDERABLES F inal Result LABORATORY [address] [address] * URINALYSIS, REFLEX TO CULTURE (CUP ONLY) (02/14/2025 11:57 AM EDT) Urinalysis, Reflex to Culture Specimen Specimen collected and received 02/14/2025 1:01 PM EDT [facility] Urine Urine specimen obtained by clean catch procedure / Unknown Non-blood Collection / Unknown 02/14/2025 11:57 AM EDT 02/14/2025 11:57 AM EDT [employer] [facility]ERTIF[facility] LAB URINE ORDERABLES F inal Result [facility] [place] [facility] [place] [address] documented in this encounter Visit Diagnoses Diagnosis Leukocytosis, unspecified type Frequent UTI Urinary tract infection, site not specified Urinary urgency Urgency of urination documented in this encounter Advance Directives * [...] and were consensually agreed upon. Care Teams Professor Of German Relationship Specialty Start Date End Date Simi Hernandez CRNP [address] [place] [address] PCP - General Nurse Practitioner 10/05/22 documented as of this encounter
--- OUTSIDE RECORDS SUMMARY | 2025-02-19 21:41 | External Medical Summary | Summary of Care ---
Author Name Unknown Organization [facility] Address [address] [place] [address] Phone [phone] Care Team Providers Care Cartographic Engineer Name Role Phone Simi Hernandez Primary Care Provider Reason for Visit * Reason Comments Outpatient Testing * Auth/Cert Specialty Diagnoses / Procedures Referred By eKnya soliz Referred To Contact Laboratory, [facility] 132 [facility] [place] [address] Phone: tel: fax: Referral ID Status Reason Start Date Expiration Date Visits Re quested Visits Authorized [id number] Encounter Details Date Type Department Care Team (Late st Contact Info) Description 02/14/2025 12:00 PM EDT Laboratory Laboratory, [facility] [address] [facility] [address] [place], Specimen Drop Off [facility] 132 [place] [address] Leukocytosis, unspecified type; Frequent UTI; Urinary [...] day. 350 g 4 5 Active Nystatin 439153 UNIT/ML Mouth/Throat Suspension Swish and swallow 5 mL in the morning and 5 mL at noon and 5 mL in the evening and 5 mL before bedtime. For thrush.. 240 mL 1 5 025 Active Cephalexin 500 MG Oral Capsule (Keflex) Take 1 Capsule by mouth in the morning and 1 Capsule before bedtime. From [facility] on 02/05/25 for klebsiella uti . [...] Debility 11/05/2022 Coronary artery disease invo lving [place] coronary artery of [place] heart without angina pectoris 11/05/2022 Medical home patient encounter 09/30/2022 S/P shoulder replacement, right 09/07/2022 ESBL E. coli carrier 09/07/2022 Presence of intrathecal baclofen pump 09/07/2022 History of [place] (myocardial infarction) 05/12/2022 Mass of chest wall, [...] 03/01/2025 3:30 PM EDT Office Visit Cardiology, [facility] [address] [place] [address] Flaca Basilio CRNP [address] [place] [address] 03/06/2025 1:00 PM EDT Office Visit Family [facility] [address] [place] [address] Simi Hernandez CRNP [address] [place] [address] 03/06/2025 1:40 PM EDT Office Visit Dermatology [facility] [address] [place] [address] Lisa Garcia PA-C [address] [place] [address] 03/25/2025 10:40 AM EDT Office Visit Neurology [facility] [address] [place] [address] Andrea Walker MD 200 [facility] [place] [address] 04/05/2025 1:00 PM EDT Office Visit [facility] [address] [place] [address] Simi Hernandez CRNP [address] [place] [address] 04/23/2025 11:40 AM EDT Office Visit Infectious Disease, [address] [address] Harriet Sierra MD [address] [place] [address] 05/03/2025 1:00 PM EDT Office Visit [facility] 132 [facility] [place] [address] Simi Hernandez CRNP [facility] [place] [address] 05/16/2025 8:00 AM EDT Office Visit [address] [address] Edu Chaudhary DO [address] [place] [address] 05/30/2025 1:00 PM EDT Office Visit [facility] [address] [facility] [place] [address] Simi Hernandez CRNP 132 [facility] [address] 06/27/2025 1:00 PM EDT Office Visit [facility] [place] [address] Simi Hernandez CRNP [address] [place] [address] 08/01/2025 1:00 PM EDT Office Visit [facility] [address] [place] [address] Simi Hernandez CRNP [address] [place] [address] 08/27/2025 11:15 AM EDT Office Visit Urology, [facility] [address] [place] [phone] Beau Coon MD [address] [place] [address] 08/29/2025 1:00 PM EDT Office Visit [facility] [place] [address] Simi Hernandez CRNP [address] [place] [address] 10/03/2025 1:00 PM EST Office Visit [facility] [address] [place] [address] Simi Hernandez CRNP [address] [place] [address] 10/31/2025 1:00 PM EST Office Visit [facility] 132 [facility] [place] [address] Simi Hernandez CRNP [address] [place] [address] Pending Results Name Type Priority Associated Diagnoses [...] D LEVEL ONCE IN A LIFETIME-USE SMARTSET# 74601 Completed 11/09/2024, 01/17/2023, 04/05/2022, Additional history exists [...] PM EDT LAB[facility] [place] 57-10 Specific [place], Urine 1.025 1.003 - 1.030 02/14/2025 1:02 [...] mg/dL 02/14/2025 1:02 PM EDT LAB[facility] [place] 57-10 Nitrite, Urine Positive(A) Negative 02/14/2025 1:02 PM EDT LAB[facility] [place] 57-10 Esterase, Urine Small(A) Negative 02/14/2025 1:02 PM EDT LAB[facility]ATORY [place] 57-10 RBC, Urine 10-19(A) 0 - 2 /HPF 02/14/2025 1:02 PM EDT LAB[facility]ORY [place] 57-10 WBC, Urine 10-19(A) 0 - 2 /HPF 02/14/2025 1:02 PM EDT LAB[facility] [place] 5710 Bacteria, Urine 101-150(A) 0 - 25 /HPF 02/14/2025 1:02 PM EDT LAB[facility]ORY [facility] 5710 Calcium Oxalate Crystal, Urine 1-4(A) None /HPF 02/14/2025 1:02 PM EDT [facility] [place] [facility] 5710 Amorphous Crystals, Urine Many(A) None /HPF 02/14/2025 1:02 PM EDT LAB[facility]ATORY [place] 5710 Culture, Urine 02/14/2025 1:02 PM EDT LABORATORY [address] Comment:Quantitative urine c ulture to be performed Urine Urine specimen obtained by clean catch procedure / Unknown Non-blood Collection / Unknown 02/14/2025 11:57 AM EDT 02/14/2025 11:57 AM EDT Score [employer] [facility] URINE ORDERABLES F inal Result LABORATORY [address] [address] * URINALYSIS, REFLEX TO CULTURE (CUP ONLY) (02/14/2025 11:57 AM EDT) Urinalysis, Reflex to Culture Specimen Specimen collected and received 02/14/2025 1:01 PM EDT LAB[facility]ORY [place] [facility] Urine Urine specimen obtained by clean catch procedure / Unknown Non-blood Collection / Unknown 02/14/2025 11:57 AM EDT 02/14/2025 11:57 AM EDT IDvergee Silver[employer]d MACHINE REBUILDER LAB URINE ORDERABLES F inal Result LABORATORY [place] 57-10 [address] [place] [address] documented in this encounter Visit Diagnoses Diagnosis [...] and were consensually agreed upon. Care Teams Cartographic Engineer Relationship Specialty Start Date End Date Simi Hernandez CRNP [address] [place] [address] PCP - General Nurse Practitioner 10/05/22 documented as of this encounter
--- OUTSIDE RECORDS SUMMARY | 2025-02-19 21:41 | External Medical Summary ---
Author Name Unknown Address Unknown Organization K01:LABORATORY [facility] - [address] [facility] [address] [facility] [address] Laboratory Report Ordering Provider Test Date Status GATITO ANDREA 02/14/2025 11:57:20 Final <10,000 colonies/ml mixed no rmal carmel Observation Date Value Abnormality Reference (Units ) Status Bacteria identified in Specimen by Culture 02/14/2025 11:57:20 [id number]^KLEBSIELL A PNEUMONIAE Abnormal Final 10,000 to 100,000 colonies/m L Klebsiella pneumoniae Performing Location [facility] [address] [facility] [address] Ordering Provider Test Date Status GATITO ANDREA 02/14/2025 11:57:20 Final Observation Date Value Abnormality Reference (Units ) Status Ampicillin + Sulbactam 02/14/2025 11:57:20 <=2 Susceptible Final Cefazolin 02/14/2025 11:57:20 <=4 Susceptible Final Cefepime susceptibility 02/14/2025 11:57:20 <=1 Susceptible Final Ceftriaxone suceptibility 02/14/2025 11:57:20 <=1 Susceptible Final Ciprofloxacin 02/14/2025 11:57:20 <=0.25 Susceptible Final Due to serious side effects, the FDA has advised against using Ciprofloxacin to treat uncomplicated UTIs and respiratory tract infections unless there are no alternative treatment options. Gentamicin susceptibility 02/14/2025 11:57:20 <=1 Susc eptible Final Levofloxacin susceptibility 02/14/2025 11:57:20 <=0.12 Gonzalez sceptible Final Due to serious side effects, the FDA has advised against using Levofloxacin to treat uncomplicated UTIs and respiratory tract infections unless there are no alternative treatment options. Nitrofurantoin susceptibility 02/14/2025 11:57:20 <=16 Susceptible Final Piperacillin + Tazobactamsusceptibility 02/14/2025 11:57:20 <=4 Susceptible Final TMP-SMZ susceptibility 02/14/2025 11:57:20 >=320 Resista nt Final Test: Culture, Urine, Quanti tative
Specimen Source: Urine, Clean Catch
Specimen Type: Urine
Specimen Date: 02/14/2025 1157
Result Date: 02/16/2025 0837
Result Status: Final result
Abnormal: Yes
Resulting Lab: LABORATORY [facility]
[address] [facility] [place] [address]

CULTURE

10,000 to 100,000 colonies/mL Klebsiella pneumoniae (Abnormal)

<10,000 colonies/ml mixed normal carmel

SUSCEPTIBILITY

Klebsiella
pneumoniae
METHOD MICROBROTH
DILUTIONS

AMPICILLIN/SULBACTAM <=2 Susceptible
CEFAZOLIN <=4 Susceptible
CEFEPIME <=1 Susceptible
CEFTRIAXONE <=1 Susceptible
CIPROFLOXACIN <=0.25 Susceptible
[1]
GENTAMICIN <=1 Susceptible
LEVOFLOXACIN <=0.12 Susceptible
[2]
NITROFURANTOIN <=16 Susceptible
PIPERACILLIN TAZOBACTAM <=4 Susceptible
TRIMETH/SULFAMETHOXAZOLE >=320 Resistant

[1] Due to serious side effects, the FDA has advised against using
Ciprofloxacin to treat uncomplicated UTIs and respiratory tract infections
unless there are no alternative treatment options.

[2] Due to serious side effects, the FDA has advised against using
Levofloxacin to treat uncomplicated UTIs and respiratory tract infections
unless there are no alternative treatment options.

null Performing Location LABORATORY [facility] - [facility] [place] [address]
--- OUTSIDE RECORDS SUMMARY | 2025-02-19 21:41 | External Medical Summary | Summary of Care ---
Author Name Unknown Organization [facility] Address [address] [place] [address] Phone [phone] Care Team Providers Care It Account Manager Name Role Phone Simi Hernandez Primary Care Provider Reason for Visit * Reason Comments Outpatient Testing * Auth/Cert Specialty Diagnoses / Procedures Referred By Kenya soliz Referred To Contact Laboratory, [facility] 132 [facility] [place] [address] Phone: tel: fax: Referral ID Status Reason Start Date Expiration Date Visits Re quested Visits Authorized [id number] Encounter Details Date Type Department Care Team (Late st Contact Info) Description 02/14/2025 12:00 PM EDT Laboratory Laboratory, [facility] [address] [place], Specimen Drop Off [facility] 132 [place] [address] Leukocytosis, unspecified type; Frequent UTI; Urinary [...] day. 350 g 4 5 Active Nystatin 280635 UNIT/ML Mouth/Throat Suspension Swish and swallow 5 mL in the morning and 5 mL at noon and 5 mL in the evening and 5 mL before bedtime. For thrush.. 240 mL 1 5 025 Active Cephalexin 500 MG Oral Capsule (Keflex) Take 1 Capsule by mouth in the morning and 1 Capsule before bedtime. From [facility] on 02/05/25 for klebsiella uti . [...] Debility 11/05/2022 Coronary artery disease invo [place]ving [place] coronary artery [place] heart without angina pectoris 11/05/2022 Medical home [...] 03/01/2025 3:30 PM EDT Office Visit Cardiology, [facility] [address] [address] Flaca Basilio CRNP [address] [place] [address] 03/06/2025 1:00 PM EDT Office Visit Family [facility] [address] [place] [address] Simi Hernandez CRNP [address] [place] [address] 03/06/2025 1:40 PM EDT Office Visit Dermatology [facility] [address] [place] [address] Lisa Garcia PA-C [address] [place] [address] 03/25/2025 10:40 AM EDT Office Visit Neurology [facility] [address] [place] [address] Andrea Walker MD 200 [facility] [place] [address] 04/05/2025 1:00 PM EDT Office Visit [facility] [address] [place] [address] Simi Hernandez CRNP [address] [place] [address] 04/23/2025 11:40 AM EDT Office Visit Infectious Disease, [address] [address] Harriet Sierra MD [address] [place] [address] 05/03/2025 1:00 PM EDT Office Visit [facility] 132 [facility] [place] [address] Simi Hernandez CRNP [facility] [place] [address] 05/16/2025 8:00 AM EDT Office Visit [address] [address] Edu Chaudhary DO [address] [place] [address] 05/30/2025 1:00 PM EDT Office Visit [facility] [address] [facility] [place] [address] Simi Hernandez CRNP 132 [facility] [address] 06/27/2025 1:00 PM EDT Office Visit [facility] [place] [address] Simi Hernandez CRNP [address] [place] [address] 08/01/2025 1:00 PM EDT Office Visit [facility] [address] [place] [address] Simi Hernandez CRNP [address] [place] [address] 08/27/2025 11:15 AM EDT Office Visit Urology, [facility] [address] [place] [phone] Beau Coon MD [address] [place] [address] 08/29/2025 1:00 PM EDT Office Visit [facility] [address] [facility] [place] [address] Simi Hernandez CRNP [address] [place] [address] 10/03/2025 1:00 PM EST Office Visit [facility] [address] [place] [address] Simi Hernandez CRNP [address] [place] [address] 10/31/2025 1:00 PM EST Office Visit [facility] 132 [facility] [place] [address] Simi Hernandez CRNP [address] [place] [address] Pending Results Name Type Priority Associated Diagnoses [...] D LEVEL ONCE IN A LIFETIME-USE SMARTSET# [id number] Completed 11/09/2024, 01/17/2023, 04/05/2022, Additional history exists [...] PM EDT LAB[facility] [place] 57-10 Specific [place], Urine 1.025 1.003 - 1.030 02/14/2025 1:02 [...] Small(A) Negative 02/14/2025 1:02 PM EDT LAB[facility]ATORY [place] 57-10 RBC, Urine 10-19(A) 0 - 2 /HPF 02/14/2025 1:02 PM EDT LAB[facility]ORY [place] 57-10 WBC, Urine 10-19(A) 0 - 2 /HPF 02/14/2025 1:02 PM EDT LAB[facility]ATORY [place] 5710 Bacteria, Urine 101-150(A) 0 - 25 /HPF 02/14/2025 1:02 PM EDT LAB[facility]ORY [facility] 5710 Calcium Oxalate Crystal, Urine 1-4(A) None /HPF 02/14/2025 1:02 PM EDT LAB[facility] 5710 Amorphous Crystals, Urine Many(A) None /HPF 02/14/2025 1:02 PM EDT LAB[facility]ATORY [place] 5710 Culture, Urine 02/14/2025 1:02 PM EDT LABORATORY [address] Comment:Quantitative urine c ulture to be performed Urine Urine specimen obtained by clean catch procedure / Unknown Non-blood Collection / Unknown 02/14/2025 11:57 AM EDT 02/14/2025 11:57 AM EDT GrowYolle Zane [employer] [facility] URINE ORDERABLES F inal Result LABORATORY [address] [address] * URINALYSIS, REFLEX TO CULTURE (CUP ONLY) (02/14/2025 11:57 AM EDT) Urinalysis, Reflex to Culture Specimen Specimen collected and received 02/14/2025 1:01 PM EDT [facility] [place] [facility] Urine Urine specimen obtained by clean catch procedure / Unknown Non-blood Collection / Unknown 02/14/2025 11:57 AM EDT 02/14/2025 11:57 AM EDT edulioe Zane Prepd STATION MASTER LAB URINE ORDERABLES F inal Result LABORATORY [place] 57-10 [address] [place] [address] documented in this encounter Visit Diagnoses Diagnosis [...] and were consensually agreed upon. Care Teams It Account Manager Relationship Specialty Start Date End Date Simi Hernandez CRNP [address] [place] [address] PCP - General Nurse Practitioner 10/05/22 documented as of this encounter
--- OUTSIDE RECORDS SUMMARY | 2025-02-19 21:42 | External Medical Summary | Summary of Care ---
Author Name Unknown Organization [facility] Address [address] [place] [address] Phone [phone] Care Team Providers Care Ediphone Operator Name Role Phone Simi Hernandez Tami BROWN Primary Care Provider Reason for Visit * Reason Comments Follow Up Encounter Details Date Type Department Care Team (Late st Contact Info) Description 02/13/2025 1:30 PM EDT Office Visit Urology Kirstie Avina [address] [place] [id number] Elba Benitez PA-C [address] [place] [address] Frequent UTI*; Urinary urgency; History of urinary retention; Urinary incontinence, nocturnal enuresis Allergies No known active allergiesdocumented as of this encounter (statuses as of 02/14/2025) Medications VITAMIN D 1000 UNITS PO CAPSIndications:Os teoporosis One capsule daily 30 Cap 5 04/24/201 3 Active Aubagio 14 MG Oral Tablet [...] day. 350 g 4 5 Active Nystatin 656366 UNIT/ML Mouth/Throat Suspension Swish and swallow 5 mL in the morning and 5 mL at noon and 5 mL in the evening and 5 mL before bedtime. For thrush.. 240 mL 1 5 025 Active Cephalexin 500 MG Oral Capsule (Keflex) Take 1 Capsule by mouth in the morning and 1 Capsule before bedtime. From [facility] ER on 02/05/25 for klebsiella uti . [...] Debility 11/05/2022 Coronary artery disease invo lving modoc coronary artery of modoc heart without angina pectoris 11/05/2022 Medical home [...] mRNA, LNP-s, No Pre serve, 2-Dose Series ([employer]) 04/18/2022,11/12/2021,01/28/2021,01/14 COVID-19, LNP-s, No Preserve , Delfino-sucrose, [...] as of this encounter Progress Notes * Elba Benitez PA-C - 02/13/2025 1:42 PM EDT [id number] PCP: SIMI HERNANDEZ [address] [place] [address] [phone] Kandy Shelby is a 74 year old female, who presents for follow up of urinary incontinence, historyof urinary retention, and frequent UTIs. Patient recently seen at [facility] on 02/02/2025 due to "concern for sepsis." Her urinalysis was concerning for infection and was discharged with p.o. Bactrim. She noted she did not finish antibiotics due to oral thrush. She noted it has been about 5 days since last dose. She noted she continues to have persistent UTI symptoms including urgency, mild dysuria, and fatigue. She noted prior to recent difficulties, she was doing well. She noted she ran out of straight catheters, so she has not been cathing throughout the day. She noted she has continued an overnight Zuñiga without difficulties or issues. She denied fever, chills, and abdominal pain. Previous care: Patient was previously seeing Dr. Milner for urinary retention and overactive bladder. Patient haspreviously performed CIC and most recently performed an overnight Zuñiga. Previously tried anticholinergics and multiple Botox injections, but they became ineffective Current Outpatient Medications Medication Sig Dispense Refill oxyBUTYnin Chloride ER 15 MG Oral Tablet Extended Release 24 Hour (Ditropan XL) TAKE 1 TABLET BY MOUTH IN THE MORNING 90 Tablet 0 VITAMIN D 1000 UNITS PO CAPS One capsule daily 30 Cap 5 Aubagio 14 MG Oral Tablet Take 1 Tablet by mouth in the morning. Takes at night. Melatonin 3 MG Oral Tablet Disintegrating Take 3 mg by mouth every night at bedtime. 30 Tablet 0 Multivitamin Adult Oral Tablet Take by mouth 1 Tablet daily . 30 Tablet 0 Omeprazole 40 MG Oral Capsule [...] 1 Tablet by mouth in the morning. Atorvastatin Calcium 40 MG Oral Tablet (Lipitor) Take 1 Tablet by mouth in the morning. 90 Tablet 3 Eliquis 5 MG Oral Tablet Take 1 tablet by mouth twice daily 180 Tablet 1 Ferrous Sulfate 325 (65 Fe) MG Oral Tablet Delayed Release Take 1 Tablet by mouth in the morning. Doxycycline Monohydrate 100 MG Oral Tablet Take 1 Tablet by mouth in the morning and 1 Tablet before bedtime. 60 Tablet 3 Azelaic Acid 15 % External Gel (Finacea) Apply to face twice daily as needed 50 g 1 tiZANidine HCl 4 MG Oral Tablet (Zanaflex) Take 1 Tablet by mouth every 6 hours as needed for Muscle spasms. 360 Tablet 0 predniSONE 10 MG Oral Tablet (Deltasone) Take 1 tablet by mouth once daily 90 Tablet 0 DULoxetine HCl 60 MG Oral Capsule Delayed Release Particles (Cymbalta) Take 1 Capsule by mouth in the morning. Do not cut, crush or chew. 30 Capsule 5 Diclofenac Sodium 1 % External Gel (Voltaren) Apply topically to affected area 4 times a day. 350 g4 Nystatin 863888 UNIT/ML Mouth/Throat Suspension Swish and swallow 5 mL in the morning and 5 mL at noon and 5 mL in the evening and 5 mL before bedtime. For thrush.. 240 mL 1 Cephalexin 500 MG Oral Capsule (Keflex) Take 1 Capsule by mouth in the morning and 1 Capsule beforebedtime. From [facility] on 02/05/25 for klebsiella uti . No current facility-administered medications for this visit. Review of patient's allergies indicates: No Known Allergies Social History: Social History Tobacco Use Smoking status: Former Current packs/day: 0.00 Average packs/day: 1 pack/day for 6.0 years (6.0 ttl pk-yrs) Types: Cigarettes Start date: 07/05/1974 Quit date: 07/05/1980 Years since quittin.6 Smokeless tobacco: Never Tobacco comments: quit about about 1979 Substance Use Topics Alcohol use: Not Currently Comment: every once in awhile a glass of wine but not often Vaping/E-Cigarette Use Vaping/E-Cigarette Use Never User Vaping/E-Cigarette Substances Vaping/E-Cigarette Devices Family History Problem Relation Name Age of Onset Cancer Sister thyroid Heart Disorder Grandfather (Maternal) [place] mid 70's Heart Disorder Mother CAD - CABG in her 80's Other (Other) Mother Denies family history of skin cancer or skin disease Past Surgical History: Procedure Laterality Date BIOPSY OF BREAST, OPEN 10/04/2000 Dr. Ibrahim BONE DEBRIDEMENT, FIRST 20 CM2 Left 01/20/2016 DEBRIDEMENT SKIN SUBCUTANEOUS TISSUE MUSCLE AND BONE performed by Andrea Stanford MD at [facility] BONE DEBRIDEMENT, FIRST 20 CM2 Right 05/12/2023 R lateral ankle osteomyelitis-Andrea Velasco DPM CARDIAC CATH-CARDIOLOGY ONLY 07/06/2021 [facility] COLONOSCOPY, DIAGNOSTIC (RECTUM) polyp removed not retrieved / INPT [facility] COLONOSCOPY, DIAGNOSTIC (RECTUM) 01/26/2018 poor prep, repeat / INPT [facility] COLONOSCOPY, DIAGNOSTIC (RECTUM) N/A 11/04/2022 poor prep/non-bleeding internal hemorrhoids/recall 3 months/Colonoscopy/AL COLONOSCOPY, DIAGNOSTIC (RECTUM) 05/05/2023 normal, repeat 5 yrs / COLONOSCOPY FLEXIBLE PROXIMAL DIAGNOSTIC performed by Blanche Chi DO at ENDOSCOPY [facility] CYSTOURETHROSCOPY, INJ FOR CHEMODENERVATION 03/29/2014 CYSTOURETHROSCOPY, INJ FOR CHEMODENERVATION performed by Hannah Milner MD at [facility] CYSTOURETHROSCOPY, INJ FOR CHEMODENERVATION 05/22/2015 EGD, FLEXIBLE, DIAGNOSTIC 01/25/2018 normal bx/[facility] EGD, FLEXIBLE, DIAGNOSTIC 04/30/2020 reflux esophagitis, gastric ulcer, repeat 2 mo / [facility] EGD, FLEXIBLE, DIAGNOSTIC 06/18/2020 gastric diverticulum, gastric irritation & ulceration, repeat 3-6 mo / [facility] EGD, FLEXIBLE, DIAGNOSTIC 03/19/2021 erosive gastritis, hiatal hernia / [facility] EGD, FLEXIBLE, DIAGNOSTIC 02/19/2022 erosive gastritis, hiatal hernia / [facility] EGD, FLEXIBLE, DIAGNOSTIC N/A 11/04/2022 large hiatal hernia/gastric diverticulum/EGD/[facility] TOOTH REMOV PART BONY (2) upper wisdom teeth removed IMPLANT/REPLACE SPINE INFUSION PUMP 07/2022 [facility] MASTECTOMY, MODIFIED RADICAL 09/2001 left breast- Dr. Ibrahim PAIN MANAGEMENT CATH 03/13/2009 [employer] Baclofen pump- Dr. Shabazz- [facility] PARTIAL HIP REPLACEMENT & PROSTH left PARTIAL HYSTERECTOMY approx 1991 Ovaries remain in RECONSTRUCT/REPLACE SHOULDER JOINT Right 05/25/2022 Reverse total shoulder--Thad REMOVAL OF APPENDIX 06/25/[address] Johnson [facility] 06/25/2009 REPAIR THIGH FRACTURE, W/IMPLANT 10/2006 Hip ORIF- left hip Dr. Morales REVERSE TOTAL SHOULDER ARTHROPLASTY Right 05/25/2022 Dr. Oneil [facility] SACROILIAC JOINT INJECT W/GUIDANCE 08/17/2018 INJECTION SACROILIAC JOINT performed by Ulises Tran, DO at [facility] SACROILIAC JOINT INJECT W/GUIDANCE 10/09/2018 INJECTION SACROILIAC JOINT performed by Ulises Tran, DO at OR [facility] SACROILIAC JOINT INJECT W/GUIDANCE 02/01/2019 INJECTION SACROILIAC JOINT performed by Ulises Tran, DO at OR [facility] Past Medical History: Diagnosis Date Breast cancer (HCC) left breast Depression with anxiety 05/05/2020 H/O: upper GI bleed 05/05/2020 Hiatal hernia 05/07/2020 History of non-ST elevation myocardial infarction (NSTEMI) 05/12/2022 Hx of nonmelanoma skin cancer 09/21/2018 L nasal dorsum (bx 07/2018 Dr. 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 Presence of intrathecal baclofen pump Medical home patient encounter Debility Coronary artery disease involving modoc coronary artery of modoc heart without angina pectoris HTN, goal below 140/90 Dyslipidemia, goal LDL below 70 Paroxysmal A-fib (HCC) Hydronephrosis Bladder dysfunction Noninfected skin tear of left leg Pyogenic inflammation of bone (HCC) Encounter for management of wound VAC Protein-calorie malnutrition (HCC) Need for prophylactic vaccination and inoculation against influenza Dysuria Chronic ulcer of right foot (HCC) Chronic deep vein thrombosis (DVT) of left peroneal vein (HCC) Chronic osteomyelitis of fibula (HCC) Nonrheumatic aortic valve stenosis Prepatellar bursitis due to group B Streptococcus, left Moderate episode of recurrent major depressive disorder (HCC) Pressure injury of sacral region, stage 1 Wound of left leg Ischemic optic neuropathy of both eyes Cellulitis of right lower extremity Polyneuropathy Chronic wound Pressure injury of coccygeal region, stage 2 (HCC) Ulcer of lower extremity, right, limited to breakdown of skin (HCC) Constitutional: (-) fever chills sweats or weight loss Pulmonary: (-) negative: no cough, wheezing, or shortness of breath Abdominal/GI: (-) abdominal pain, (-) nausea, and (-) vomiting Female : (+) see HPI Skin: (-) persistent rash Physical Exam Nursing note reviewed. Constitutional: General: She is not in acute distress. Appearance: She is not toxic-appearing. Comments: In wheelchair HENT: Head: Normocephalic and atraumatic. Right Ear: External ear normal. Left Ear: External ear normal. Nose: Nose normal. Mouth/Throat: Mouth: Mucous membranes are moist. Pharynx: Oropharynx is clear. Pulmonary: Effort: Pulmonary effort is normal. No respiratory distress. Skin: General: Skin is warm and dry. Neurological: General: No focal deficit present. Mental Status: She is alert and oriented to person, place, and time. Mental status is at baseline. Motor: Weakness present. Psychiatric: Mood and Affect: Mood normal. Behavior: Behavior normal. Thought Content: Thought content normal. Judgment: Judgment normal. Impression/Plan: 74-year-old female with urinary urgency, history of frequent UTIs, urinary incontinence, and history of urinary retention. Findings reviewed with the patient, and we discussed that I would recommend repeating urine cultureto assess for recurrent/refractory infection. Would recommend holding off on further antibiotics until culture is received. Encouraged patient to increase her water intake in the meantime. We will con tinue with overnight Zuñiga per patient's preference we discussed increased risk of infection which he accepts. Patient should call catheter company for refill of straight catheter supplies for her p.r.n. use. We will plan to follow up in 6 months at [facility] per patient preference. Encouraged patient to return to ER if she experiences fever, chills, or worsening urinary symptoms. Patient should call in the meantime with any new or worsening symptoms. All questions and concerns addressed to patient's satisfaction. Elba Benitez PA-C 1:42 PM 02/13/2025 Cosigned by Beau Coon MD at 02/13/2025 4:45 PM EDT documented in this encounter Nursing Notes * Ana Laura Patel LPN - 02/13/2025 1:35 PM EDT Chief Complaint Patient presents with Follow Up Pt presents for 6 month f/u hx of retention, urgency, incontinence and urgency. Pt states she is having UTI symptoms. States she was seen [facility] for UTI and given antibiotics there. Meds were makingher ill and gave her thrush so she stopped it. Urgency still present. Pt is no longer self cathing.Us not completed. Pt would like to be followed in [facility] if possible. documented in this encounter Plan of Treatment Upcoming Encounters Date Type Department Care Team (Late st Contact Info) Description 03/01/2025 3:30 PM EDT Office Visit Cardiology, [facility] [address] [place] [address] Flaca Basilio CRNP [address] [place] [address] 03/06/2025 1:00 PM EDT Office Visit Family Practice [facility] [address] [place] [address] [facility] [address] [facility] [address] 03/06/2025 1:40 PM EDT Office Visit Dermatology [facility] [address] [place] [address] Lisa Garcia PA-C [address] [place] [address] 03/25/2025 10:40 AM EDT Office Visit Neurology [facility] [address] [place] [address] Andrea Walker MD [address] [facility] [place] [address] 04/05/2025 1:00 PM EDT Office Visit [facility] [address] [facility] [address] Simi [facility] [address] 04/23/2025 11:40 AM EDT Office Visit Infectious Disease, [address] [phone] Harriet Sierra MD [address] [place] [id number] 05/03/2025 1:00 PM EDT Office Visit [facility] [address] [facility] [address] Simi Hernandez [facility] [address] 05/16/2025 8:00 AM EDT Office Visit [address] [address] Edu Chaudhary DO [address] [place] [facility] [place] [address] 05/30/2025 1:00 PM EDT Office Visit [facility] Practice [facility] [address] [place] [address] Simi Hernandez CRNP [address] [place] [address] 06/27/2025 1:00 PM EDT Office Visit [facility] [address] [facility] [place] [address] Simi Hernandez CRNP [address] [place] [address] 08/01/2025 1:00 PM EDT Office Visit [facility] [address] [facility] [place] [address] Simi Hernandez CRNP [address] [place] [address] 08/27/2025 11:15 AM EDT Office Visit Urology, [facility] [address] [place] [phone] Beau Coon MD [address] [place] [address] 08/29/2025 1:00 PM EDT Office Visit [facility] [address] [facility] [place] [address] Simi Hernandez CRNP [address] [place] [address] 10/03/2025 1:00 PM EST Office Visit [facility] [address] [facility] [place] [address] Simi Hernandez CRNP [address] [place] [address] 10/31/2025 1:00 PM EST Office Visit Family Practice [facility] [address] [place] [address] Simi Hernandez CRNP [address] [place] [address] Scheduled Orders Name Type Priority Associated Diagnoses Orde r Schedule CULTURE, URINE, QUANTITATIVE Lab Routine Frequent UTI Urinary urgency Expected: 02/13/2025 (Approximate), Expires: 02/13/2026 Scheduled Procedures Name Priority Associated Diagnoses Date/Ti [...] 08/22/2024, Additional history exists Colonoscopy 05/05/2028 05/05/2023, 0606/2023, 11/04/2022, Additional history exists Colorectal Cancer Screening 05/05/2028 COVID-19 Vaccine Discontinued 06/04/2022, , 11/12/2021, Additional history exists RETIRED - COLONOSCOPY-EVERY 5 YRS AGES 18-100 Discontinued 05/05/2023, 05/05/2023, 11/04/2022, Additional history exists Influenza Vaccine (FLU shot) Completed 09/26/2024, 10/13/2023, 10/15/2022, Additional history exists VITAMIN D LEVEL ONCE IN A LIFETIME-USE SMARTSET# [id number] Completed 11/09/2024, 01/17/2023, 04/05/2022, Additional history exists [...] as of this encounter Visit Diagnoses Diagnosis Frequent UTI- Primary Urinary tract infection, site not specified Urinary urgency Urgency of urination History of urinary retention Personal history of other disorder of urinary system Urinary incontinence, nocturnal enuresis Nocturnal enuresis documented in this encounter Advance Directives * [...] and were consensually agreed upon. Care Teams Ediphone Operator Relationship Specialty Start Date End Date Simi Hernandez CRNP [address] [place] [address] PCP - General Nurse Practitioner 10/05/22 documented as of this encounter
--- OUTSIDE RECORDS SUMMARY | 2025-02-19 21:42 | External Medical Summary | Summary of Care ---
Author Name Unknown Organization [facility] Address [address] [place] [address] Phone [phone] Care Team Providers Care Government Auditor Name Role Phone Simi Hernandez Primary Care Provider Reason for Visit * Reason Comments eRx-Medication Refill Encounter Details Date Type Department Care Team (Late st Contact Info) Description 01/30/2025 Refill Family Practice [facility] 132 [facility] [place] [address] Simi Hernandez CRNP 132 [facility] [place] [address] Neurogenic bladder Allergies No known active allergiesdocumented as of this encounter (statuses as of 01/31/2025) Medications VITAMIN D 1000 UNITS PO CAPSIndications:O steoporosis One capsule daily 30 Cap 5 03/21/20 13 Active Aubagio 14 MG Oral Tablet Take 1 Tablet by mouth in the morning. Takes at night. Active Melatonin 3 MG Oral Tablet Disintegrating Take 3 mg by mouth every night at bedtime. 30 Tablet 09/07/20 22 Active Multivitamin Adult Oral Tablet Take by mouth 1 Tablet daily . 30 Tablet 09/07/20 22 Active Omeprazole 40 MG Oral Capsule Delayed [...] mouth in the morning. 02/14/20 24 Active Atorvastatin Calcium 40 MG Oral Tablet (Lipitor) Take 1 Tablet by mouth in the morning. 90 Tablet 3 06/28/20 24 Active Eliquis 5 MG Oral Tablet Take 1 tablet by mouth twice daily 180 Tablet 1 10/08/20 24 Active Ferrous Sulfate 325 (65 Fe) MG Oral Tablet Delayed Release Take 1 Tablet by mouth in the morning. 10/26/20 24 Active Doxycycline Monohydrate 100 MG Oral Tablet Take 1 Tablet by mouth in the morning and 1 Tablet before bedtime. 60 Tablet 3 11/22/20 24 Active Azelaic Acid 15 % External Gel (Finacea)Indicati ons:Rosacea Apply to face twice daily as needed 50 g 1 12/03/19 25 Active tiZANidine HCl 4 MG Oral Tablet (Zanaflex) Take 1 Tablet by mouth every 6 hours as needed for Muscle spasms. 360 Tablet 12/03/19 25 Active predniSONE 10 MG Oral Tablet (Deltasone)Indica tions:Multiple sclerosis (HCC) Take 1 tablet by mouth once daily 90 Tablet 01/14/20 25 Active oxyBUTYnin Chloride ER 15 MG Oral Tablet Extended Release 24 Hour (Ditropan XL)Indications:Ne urogenic bladder TAKE 1 TABLET BY MOUTH IN THE MORNING 90 Tablet 02/01/20 25 Active DULoxetine HCl 60 MG Oral Capsule Delayed Release Particles (Cymbalta) Take 1 Capsule by mouth in the morning. Do not cut, crush or chew. 30 Capsule 5 01/31/20 25 Active Diclofenac Sodium 1 % External Gel (Voltaren) Apply topically to affected area 4 times a day. 350 g 4 01/31/20 25 Active Nystatin 252356 UNIT/ML Mouth/Throat Suspension Swish and swallow 5 mL in the morning and 5 mL at noon and 5 mL in the evening and 5 mL before bedtime. For thrush.. 240 mL 1 01/31/20 25 025 Active oxyBUTYnin Chloride ER 15 MG Oral Tablet Extended Release 24 Hour (Ditropan XL)Indications:Ne urogenic bladder Take 1 Tablet by mouth in the morning. In the morning.. 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 11/05/2022 Medical home [...] as of this encounter (statuses as of 01/31/2025) Resolved Problems Problem Noted Date Diagnosed Date [...] as of this encounter (statuses as of 01/31/2025) Immunizations Name Administration Dates Next Due COVID-19 mRNA, LNP-s, No Pre serve, 2-Dose Series (Top Rops) 04/18/2022,11/12/2021,01/28/2021,01/14 COVID-19, LNP-s, No Preserve , Delfino-sucrose, [...] Telephone Encounter - Simi Hernandez CRNP - 01/31/2025 2:10 PM EST Signed Prescriptions: Disp Refills oxyBUTYnin Chloride ER 15 MG Oral Tablet E*90 Tab*0 Sig: TAKE 1 TABLET BY MOUTH IN THE MORNING Authorizing Provider: SIMI HERNANDEZ Refused Prescriptions: Disp Refills DULoxetine HCl 30 MG Oral Capsule Delayed *30 Cap*0 Sig: TAKE 1 CAPSULE BY MOUTH IN THE MORNING. DO NOT CUT, CRUSH OR CHEW.Refused By: J CARLOS OCAMPO Reason for Refusal: Other (comment below) Reason for Refusal Comment: dose change * Telephone Encounter - J Carlos Ocampo [facility] - 01/31/2025 1:33 PM EST Pending Prescriptions: Disp Refills oxyBUTYnin Chloride ER 15 MG Oral Tablet E*90 Tab*0 Sig: TAKE 1 TABLET BY MOUTH IN THE MORNING Refused Prescriptions: Disp Refills DULoxetine HCl 30 MG Oral Capsule Delayed *30 Cap*0 Sig: TAKE 1 CAPSULE BY MOUTH IN THE MORNING. DO NOT CUT, CRUSH OR CHEW. Refused By: J CARLOS OCAMPO Reason for Re fusal: Other (comment below) Reason for Refusal Comment: dose change * Telephone Encounter - J Carlos Ocampo [facility] - 01/31/2025 1:27 PM EST [facility] is currently not authorized to approve refills for the pended medication(s) per refill protocol. Please approve if appropriate. Thank You, J Carlos Ocampo, Pharm-D Clinical Pharmacist [facility] ([facility]) [phone] 01/31/2025, 1:30 PM Did you pend patient's preferred pharmacy and medication before forwarding?yes Pharmacy: [facility] [id number] Pending Prescriptions: Disp Refills oxyBUTYnin Chloride ER 15 MG Oral Tablet *90 Tab*0 Sig: TAKE 1 TABLET BY MOUTH IN THE MORNING Refused Prescriptions: Disp Refills DULoxetine HCl 30 MG Oral Capsule Delayed *30 Cap*0 Sig: TAKE 1 CAPSULE BY MOUTH IN THE MORNING. DO NOT CUT, CRUSH OR CHEW. Refused By: J CARLOS OCAMPO Reason for Refusal: Other (comment below) Reason for Refusal Comment: dose change Last Visit: 11/01/2024 (in office), Visit date not found (telemedicine) Next Visit: 03/06/2025 If no future appointments scheduled, and last appointment is greater than a year ago, please schedule patient for a follow-up appointment Last date the medication was ordered: 11/05/2024 Is this request for a controlled substance?No Urine Drug Screen:No results found. However, due to the size of the patient record, not all encounters were searched. Please check Results Review for a complete set of results. Patient Phone Numbers Labs: Lab Results Component Value Date/Time CREAT 0.9 01/30/2025 12:28 PM CREAT 1.1 07/19/2024 12:00 AM CREAT 1.0 12/17/2020 02:45 PM POTASSIUM 4.3 01/30/2025 12:28 PM POTASSIUM 3.7 10/31/2023 12:00 AM POTASSIUM 4.2 12/17/2020 02:45 PM TSH 2.29 01/30/2025 12:28 PM TSH 0.96 01/20/2018 05:03 PM LDL 141 (H) 06/26/2024 11:22 AM LDL 126 11/29/2017 11:58 AM LDL NOT APPLICABLE 11/29/2017 11:58 AM ALT 22 11/09/2024 11:40 AM ALT 36 (H) 12/17/2020 02:45 PM HGBA1C 5.5 05/07/2015 02:45 PM documented in this encounter Plan of Treatment Upcoming Encounters Date Type Department Care Team (Late st Contact Info) Description 02/13/2025 1:30 PM EDT Office Visit Urology Kirstie Avina [address] [place] [address] Elba Benitez PA-C [address] [place] [address] 03/01/2025 3:30 PM EDT Office Visit Cardiology, [facility] [address] [place] [address] Flaca Basilio CRNP [address] [place] [address] 03/06/2025 1:00 PM EDT Office Visit Family [facility] [address] [place] [address] Simi Hernandez CRNP 132 [place] [address] 03/25/2025 10:40 AM EDT Office Visit Neurology [facility] 200 [facility] [place] [address] Andrea Walker MD 200 [facility] [place] [address] 04/05/2025 1:00 PM EDT Office Visit Family [facility] [address] [place] [address] Simi Hernandez CRNP 132 [place] [address] 04/23/2025 11:40 AM EDT Office Visit Infectious Disease, [address] [address] Harriet Sierra MD [address] [place] [address] 05/03/2025 1:00 PM EDT Office Visit [facility] 132 [facility] [place] [address] Simi Hernandez CRNP 132 [place] [address] 05/16/2025 8:00 AM EDT Office Visit [address] [address] Edu Chaudhary DO [address] [place] [address] 05/30/2025 1:00 PM EDT Office Visit [facility] [place] [address] Simi Hernandez CRNP 132 [place] [address] 06/27/2025 1:00 PM EDT Office Visit [facility] [place] [address] Simi Hernandez CRNP 132 [place] [address] 08/01/2025 1:00 PM EDT Office Visit [facility] 132 [facility] [place] [address] Simi Hernandez CRNP [facility] [address] 08/29/2025 1:00 PM EDT Office Visit [facility] [address] [place] [address] Simi Hernandez CRNP [address] [place] [address] 10/03/2025 1:00 PM EST Office Visit [facility] [address] [place] [address] Simi Hernandez CRNP [address] [place] [address] 10/31/2025 1:00 PM EST Office Visit [facility] [address] [place] [address] Simi Hernandez CRNP [address] [place] [address] Scheduled Procedures Name Priority Associated Diagnoses Date/Ti [...] D LEVEL ONCE IN A LIFETIME-USE SMARTSET# [id number] Completed 11/09/2024, 01/17/2023, 04/05/2022, Additional history exists [...] as of this encounter Visit Diagnoses Diagnosis Neurogenic bladder Neurogenic bladder, NOS documented in this encounter Advance Directives * [...] and were consensually agreed upon. Care Teams Government Auditor Relationship Specialty Start Date End Date Simi Hernandez CRNP 132 [place] [address] PCP - General Nurse Practitioner 10/05/22 documented as of this encounter
--- OUTSIDE RECORDS SUMMARY | 2025-02-19 21:42 | External Medical Summary | Summary of Care ---
Author Name Unknown Organization [facility] Address [address] [place] [address] Phone [phone] Care Team Providers Care Paint Line Operator Name Role Phone Simi Hernandez Primary Care Provider Reason for Visit * Reason Onset Date Comments Advice 02/02/2025 Encounter Details Date Type Department Care Team (Late st Contact Info) Description 02/02/2025 Telephone Family Practice [facility] 132 [facility] [place] [address] Simi Hernandez CRNP 132 [facility] [place] [address] Advice Allergies No known active allergiesdocumented as of this encounter (statuses as of 02/05/2025) Medications VITAMIN D 1000 UNITS PO CAPSIndications:Os [...] day. 350 g 4 5 Active Nystatin 869794 UNIT/ML Mouth/Throat Suspension Swish and swallow 5 mL in the morning and 5 mL at noon and 5 mL in the evening and 5 mL before bedtime. For thrush.. 240 mL 1 5 025 Active Cephalexin 500 MG Oral Capsule (Keflex) Take 1 Capsule by mouth in the morning and 1 Capsule before bedtime. From [facility] ER on 02/05/25 for klebsiella uti . Active documented as of this encounter (statuses as of 02/05/2025) Active Problems Problem Noted Date Diagnosed Date [...] of intrathecal baclofen pump 09/07/2022 History of ME (myocardial infarction) 05/12/2022 Mass of chest wall, [...] as of this encounter (statuses as of 02/05/2025) Resolved Problems Problem Noted Date Diagnosed Date [...] as of this encounter (statuses as of 02/05/2025) Immunizations Name Administration Dates Next Due COVID-19 [...] No 08/30/2024 Does the household have a presbyterian hospitallar source of income? (Household - for [...] Telephone Encounter - Dottie Bridges RN - 02/05/2025 2:34 PM EDT Provider to address: Reason for Call: Advice Contact: Telephone Call Contact Type: Orders Provider In-Basket: No Outcome: Call placed to [employer], spoke with Rep Elida who states that the patient has a current order, from Elba Benitez in urology and they are currently on hold with her supplies as Kandy has critical access hospital at this time who is providing supplies. I spoke with Kandy who states she will be transitioning to outpatient PT and will be finishing up with soon. Elida was informed of this and states they at [employer] will reach out to Kandy at the end of the week to follow up and will ship her supplies as soon as they receive confirmation from critical access hospital that the patient is discharged from . Kandy also reported that she was originally given bactrim at [facility] ER for a + UA on 02/02, but she received a call from them today stating that they need to change her abx to keflex based off sensitivities. She plans to start this tonight. Face to face time spent with Patient (minutes): 0 Total Time including non face to face (minutes): 10 * Telephone Encounter - Dottie Bridges RN - 02/05/2025 2:11 PM EDT Provider to address: Reason for Call: Advice Contact: Telephone Call Contact Type: Follow-up Provider In-Basket: No Outcome: LMTRC Face to face time spent with Patient (minutes): 0 Total Time including non face to face (minutes): 10 LMTRC, if patient calls please transfer her to my line [phone] * Telephone Encounter - Aurora Flores OSA - 02/05/2025 1:56 PM EDT Pt rt Dottie Lynn call. Has questions regarding antibiotic given for uti. Only wants to speak w/ Dottie she explains well. Declined dedicated nurse call. * Telephone Encounter - Laverne Mann OSA - 02/02/2025 12:35 PM EST Pt daughter called in stating the patient as shaking this AM. She states with pt's history of infections she'd like to check in with the nurse on this. Temp was 95. Please call daughter back to advise. documented in this encounter Plan of Treatment Upcoming Encounters Date Type Department Care Team (Late st Contact Info) Description 02/13/2025 1:30 PM EDT Office Visit Urology Kirstie Avina [address] [place] [address] Elba Benitez PA-C [address] [place] [address] 03/01/2025 3:30 PM EDT Office Visit Cardiology, [facility] [address] [place] [address] Flaca Basilio CRNP [address] [place] [address] 03/06/2025 1:00 PM EDT Office Visit Family Practice [facility] [address] [place] [address] Simi Hernandez CRNP [address] [place] [address] 03/06/2025 1:40 PM EDT Office Visit Dermatology [facility] 200 [facility] [place] [address] Lisa Garcia PA-C 200 [facility] [place] [address] 03/25/2025 10:40 AM EDT Office Visit Neurology [facility] [address] [place] [address] Andrea Walker MD [address] [place] [address] 04/05/2025 1:00 PM EDT Office Visit [facility] [address] [employer] [address] Simi Hernandez CRNP 132 [place] [address] 04/23/2025 11:40 AM EDT Office Visit Infectious Disease, [address] [address] Harriet Sierra MD [address] [place] [address] 05/03/2025 1:00 PM EDT Office Visit [facility] [address] [employer] [address] Simi Hernandez CRNP [address] [place] [address] 05/16/2025 8:00 AM EDT Office Visit [address] [address] Edu Chaudhary DO [address] [place] [address] 05/30/2025 1:00 PM EDT Office Visit [facility] [address] [employer] [address] Simi Hernandez CRNP 132 [facility] [address] 06/27/2025 1:00 PM EDT Office Visit [facility] [address] [place] [address] Simi Hernandez CRNP [address] [place] [address] 08/01/2025 1:00 PM EDT Office Visit [facility] [address] [place] [address] Simi Hernandez CRNP [address] [place] [address] 08/29/2025 1:00 PM EDT Office Visit [facility] [address] [place] [address] Simi Hernandez CRNP [address] [place] [address] 10/03/2025 1:00 PM EST Office Visit [facility] [address] [place] [address] Simi Hernandez CRNP [address] [place] [address] 10/31/2025 1:00 PM EST Office Visit [facility] [address] [place] [address] Simi Hernandez CRNP [address] [place], [place] [address] Scheduled Procedures Name Priority Associated Diagnoses Date/Ti [...] D LEVEL ONCE IN A LIFETIME-USE SMARTSET# [id number] Completed 11/09/2024, 01/17/2023, 04/05/2022, Additional history exists [...] and were consensually agreed upon. Care Teams Paint Line Operator Relationship Specialty Start Date End Date Simi Hernandez CRNP [address] [place] [address] PCP - General Nurse Practitioner 10/05/22 documented as of this encounter
--- OUTSIDE RECORDS SUMMARY | 2025-02-19 21:42 | External Medical Summary | Summary of Care ---
Author Name Unknown Organization [facility] Address [address] [place] [address] Phone [phone] Care Team Providers Care Blower Insulator Name Role Phone Simi Hernandez Tami BROWN Primary Care Provider Reason for Visit * Reason Comments Excision Pt presents today fo r an excision on L shoulder Encounter Details Date Type Department Care Team (Late st Contact Info) Description 01/29/2025 3:00 PM EST Office Visit [facility] Surgery [facility] [address] [place] [address] Hannah Nicolas MD [address] [place] [address] Squamous cell carcinoma of skin of left upper limb, including shoulder* Allergies No known active allergiesdocumented as of this encounter (statuses as of 02/12/2025) Medications VITAMIN D 1000 UNITS PO CAPSIndications:Os teoporosis One capsule daily 30 Cap 5 03/21/20 13 Active Aubagio 14 MG Oral Tablet Take 1 Tablet by mouth in the morning. Takes at night. Active Melatonin 3 MG Oral Tablet Disintegrating Take 3 mg by mouth every night at bedtime. 30 Tablet 09/07/20 Active Multivitamin Adult Oral Tablet Take by [...] 25 Active predniSONE 10 MG Oral Tablet (Deltasone)Indicat ions:Multiple sclerosis (HCC) Take 1 tablet by mouth once daily 90 Tablet 01/14/20 25 Active DULoxetine HCl 30 MG Oral Capsule Delayed Release Particles (Cymbalta) Take 1 Capsule by mouth in the morning. Do not cut, crush or chew. 30 Capsule 5 07/27/20 24 025 Discontinued oxyBUTYnin Chloride ER 15 MG Oral Tablet Extended Release 24 Hour (Ditropan XL)Indications:Jameel rogenic bladder Take 1 Tablet by mouth in the morning. In the morning.. 90 Tablet 11/05/20 025 Discontinued documented as of this encounter (statuses as of 02/12/2025) Active Problems Problem Noted Date Diagnosed Date [...] Debility 11/05/2022 Coronary artery disease invo lving [place] coronary artery of [place] heart without angina pectoris 11/05/2022 Medical home [...] as of this encounter (statuses as of 02/12/2025) Resolved Problems Problem Noted Date Diagnosed Date [...] as of this encounter (statuses as of 02/12/2025) Immunizations Name Administration Dates Next Due COVID-19 mRNA, LNP-s, No Pre serve, 2-Dose Series (AcuityAds) 04/18/2022,11/12/2021,01/28/2021,01/14 COVID-19, LNP-s, No Preserve , Delfino-sucrose, [...] Sign Reading Time Taken Comments Blood Pressure - - Pulse - - Temperature 36.5 C (97.7 F) 01/29/2025 3:12 PM ES T Respiratory Rate - - Oxygen Saturation - - Inhaled Oxygen Concentration - - Weight - - Height - - Body Mass Index - - documented in this encounter Progress Notes * Hannah Nicolas MD - 01/29/2025 3:52 PM EST Kandy Shelby is a 74 year old female seen for removal of a lesion on the left shoulder. Pathologyas follows: A. Skin, left shoulder, shave: Invasive squamous cell carcinoma, well differentiated type (see comment) Comment: No overt perineural invasion or lymphovascular invasion is identified in the planes of section examined. She prefers to postpone the biopsy of her right lower eyelid lesion. Examination Kandy Shelby, 74 year old female, is alert, oriented and appears well and in no distress. The following lesion was noted and addressed: 1) Location: left shoulder Appearance: 2 cm x 1.9 cm eroded/crusted plaque Impression: Invasive squamous cell carcinoma, well differentiated type, left shoulder Recommendation: The lesion was excised (see separate note) Follow-up: as needed/can schedule an appointment for eyelid biopsy per patient preference Hannah Nicolas MD 01/29/2025 PROCEDURE NOTE Referred by: Hannah Nicolas MD Preoperative diagnosis: Invasive squamous cell carcinoma, well differentiated type Postoperative diagnosis: Pending Location: left shoulder Surgeon(s): Hannah Nicolas MD Anesthesia: Lidocaine 0.5% with epinephrine 1:200,000 by local infiltration Procedure: Excision of soft tissue lesion and closure of defect with an intermediate layered repair Estimated blood loss: Less than 5cc Complications: none Preoperative size: 2 cm x 1.9 cm without margins, 3 cm x 2.9 cm with margins Postoperative length of closure: 7 cm Description of procedure: The patient was escorted to the procedure room. Timeout was called. Patient name, medical record number, date and procedure were verified. Verification of positioning,equipment and availability of supplies was executed. Site(s) identified and marked prior to procedure. Patient and staff present were in agreement. The surgical site was examined and excision was planned to take at least 5 mm of normal-appearing skin in all directions. The skin was then locally anesthetized and prepped in the usual fashion. Excision was performed through the full thickness of skin into the subcutaneous tissue. The specimen was submitted in formalin for histologic examination. Meticulous hemostasis was obtained with the electrosurgical device and the defect was closed primarily with a layered repair using deep sutures of 3-0 Vicryl and 3-0 Monocryl and superficial sutures of5-0 Vicryl Rapide. A sterile pressure dressing was placed. Postoperative care: The patient was instructed to cleanse the wound daily, followed by the application of sterile ointment and a nonadherent dressing. I urged the patient to call us if any problems or questions should arise postoperatively. documented in this encounter Nursing Notes * Catina Feng LPN - 01/29/2025 3:13 PM EST Chief Complaint Patient presents with Excision Pt presents today for an excision on L shoulder Referral Doctor: Fidencio Hypertension History: Yes, refer to medication information for treatment. Diabetes History: No Thyroid History: No Bleeding Tendency: Yes, refer to medication information for treatment. Artificial Valve or Joint: no Pacemaker: no Defibrillator: no Hepatitis/HIV Exposure: No Smoking: no Consent signed yes documented in this encounter Miscellaneous Notes * Result Encounter Note - Makayla De La Fuente LPN - 02/01/2025 9:49 AM EST Called and spoke to patient and relayed results. * Result Encounter Note - Hannah Nicolas MD - 02/01/2025 9:16 AM EST Please let patient know that margins are clear and make sure she doesn't have any questions regarding the wound/wound care. A. Skin, left shoulder, excision: Biopsy site changes, margins negative Negative for residual carcinoma documented in this encounter Plan of Treatment Upcoming Encounters Date Type Department Care Team (Late st Contact Info) Description 02/13/2025 1:30 PM EDT Office Visit Urology Kirstie Avina [address] [address] Elba Benitez PA-C [place] [address] 03/01/2025 3:30 PM EDT Office Visit Cardiology, [facility] [address] [facility] [place] [address] Flaca Basilio CRNP [address] [place] [address] 03/06/2025 1:00 PM EDT Office Visit [facility] [address] [facility] [place] [address] Simi Hernandez CRNP [address] [place] [address] 03/06/2025 1:40 PM EDT Office Visit Dermatology [facility] [address] [facility] [place] [address] Lisa Garcia PA-C [address] [facility] [place] [address] 03/25/2025 10:40 AM EDT Office Visit Neurology [facility] [address] [facility] [place] [address] Andrea Walker MD [address] [facility] [address] 04/05/2025 1:00 PM EDT Office Visit [facility] [address] [facility] [place] [address] Simi Hernandez CRNP [address] [place] [address] 04/23/2025 11:40 AM EDT Office Visit Infectious Disease, [address] [address] Harriet Sierra MD [address] [place] [address] 05/03/2025 1:00 PM EDT Office Visit [facility] [address] [place] [address] Simi Hernandez CRNP [address] [place] [address] 05/16/2025 8:00 AM EDT Office Visit [facility] [address] [place] [address] Edu Chaudhary, DO [address] [place] [address] 05/30/2025 1:00 PM EDT Office Visit [facility] [address] [facility] [place] [address] Simi Hernandez CRNP [address] [place] [address] 06/27/2025 1:00 PM EDT Office Visit [facility] [address] [facility] [place] [address] Simi Hernandez CRNP [address] [place] [address] 08/01/2025 1:00 PM EDT Office Visit [facility] [address] [facility] [place] [address] RheSimi abdi CRNP [address] [place] [address] 08/29/2025 1:00 PM EDT Office Visit [facility] [address] [place] [address] Simi Hernandez CRNP [address] [address] 10/03/2025 1:00 PM EST Office Visit [facility] [address] [place] [address] Simi Hernandez CRNP [address] [address] 10/31/2025 1:00 PM EST Office Visit [facility] [address] [place] [address] Simi Hernandez CRNP [address] [address] Scheduled Procedures Name Priority Associated Diagnoses Date/Ti [...] D LEVEL ONCE IN A LIFETIME-USE SMARTSET# [id number] Completed 11/09/2024, 01/17/2023, 04/05/2022, Additional history exists [...] Procedure Name Priority Date/Time Associated Diagnosis Comments DERM IMAGE (SITE) Routine 01/30/2025 Squamous cell carcinoma of skin of left upper limb, including shoulder SURGICAL PATHOLOGY Routine 01/29/2025 3: 54 PM EST Squamous cell carcinoma of skin of left upper limb, including shoulder documented in this encounter Results * DERM IMAGE (SITE) (01/30/2025) 01/30/2025 us Hannah Nicolas MD DIGITAL PHOTOGRAPHY Fin al Result * SURGICAL PATHOLOGY (01/29/2025 3:54 PM EST) Final Diagnosis A. Skin, left shoulder, excision: Biopsy site changes, margins negative Negative for residual carcinoma 01/31/2025 5:13 PM EST LABORATORY [facility] Clinical History See Order Comments 01/31/2025 5:13 PM EST LABORATORY [facility] Order Comments A.left shoulder: excision of squamous cell carcinoma, suture at medial pole 01/31/2025 5:13 PM EST LABORATORY [facility] Gross Description A. Skin. Received in formalin with a container labeled with "Kandy Shelby", "[id number]", "1950" and " left shoulder". Received is an oriented, suture at medial pole skin excision measuring 5.6 x 2.8 x 1.0 cm. The surface has a luna to day coloration, firm, dull with a scar-like appearing structure located on the surface measuring 1.4 x 1.3 cm extending 0.8 cm from the nearest margin. The underlying tissue is inked. The specimen is serially sectioned into 17 pieces and entirely submitted in 17 cassettes per the attached diagram. Gross By: MF 01/31/2025 5:13 PM EST LABORATORY [facility] Photographic images and diagrams represent good findings in this case; they are not intended to replace a complete review of the final diagnostic report. The following statement applies to Flow Cytometry, Histology, In situ Hybridization Assays and Molecular Genetics. This test was developed and performed at [facility] and its performance characteristics determined by [facility]. It has not been cleared or approved [...] with appropriate positive and negative control reactions. 01/31/2025 5:13 PM EST LABORATORY [facility] Tissue Skin structure / Unknown 01/29/2025 3:54 PM EST 01/29/2025 3:54 PM EST Comment:A.left shoulder: exc ision of squamous cell carcinoma, suture at medial pole us Hannah Nicolas MD LAB PATHOLOGY ORDERABLE S Final Result LABORATORY [facility] [address] [place] [address] documented in this encounter Visit Diagnoses Diagnosis Squamous cell carcinoma of skin of left upper limb, including shoulder- Primary Squamous cell carcinoma of skin of upper limb, including shoulder documented in this encounter Advance Directives * [...] and were consensually agreed upon. Care Teams Blower Insulator Relationship Specialty Start Date End Date Simi Hernandez CRNP [address] [address] PCP - General Nurse Practitioner 10/05/22 documented as of this encounter
--- OUTSIDE RECORDS SUMMARY | 2025-02-19 21:42 | External Medical Summary | Summary of Care ---
Author Name Unknown Organization [facility] Address [address] [place] [address] Phone [phone] Care Team Providers Care Basting Puller Name Role Phone Simi Hernandez Primary Care Provider Encounter Details Date Type Department Care Team (Late st Contact Info) Description 02/01/2025 Telephone Family Practice [facility] [address] [facility] [place] [address] Simi Hernandez CRNP [address] [facility] [place] [address] Allergies No known active allergiesdocumented as of [...] day. 350 g 4 5 Active Nystatin 740368 UNIT/ML Mouth/Throat Suspension Swish and swallow 5 mL in the morning and 5 mL at noon and 5 mL in the evening and 5 mL before bedtime. For thrush.. 240 mL 1 5 03/01/20 25 Active documented as of this encounter (statuses [...] Debility 11/05/2022 Coronary artery disease invo lving [place] coronary artery of [place] heart without angina pectoris 11/05/2022 Medical home [...] mRNA, LNP-s, No Pre serve, 2-Dose Series (Tykoon) 04/18/2022,11/12/2021,01/28/2021,01/14 COVID-19, LNP-s, No Preserve , Delfino-sucrose, [...] No 08/30/2024 Does the household have a [facility] source of income? (Household - for [...] encounter Miscellaneous Notes * Telephone Encounter - Patsy Bradford, MED ASSIST - 02/08/2025 9:09 AM EDT Spoke to Vianney and does not need an order. Current order is up-to-date until July. They will ship out her supply once she is d/c from (which was today) and call the patient. Nothing needed from us at this time. * Telephone Encounter - Etta Gutierrez RN - 02/06/2025 1:10 PM EDT We have not seen this form yet. Called and left voice mail with [employer] to fax the order form again. * Telephone Encounter - Dottie Bridges RN - 02/05/2025 9:24 AM EDT Provider to address: Reason for Call: No chief complaint on file. Contact: Telephone Call Contact Type: Orders Provider In-Basket: Yes Outcome: [facility], patient went to [facility] ER on 02/02 diagnosed with UTI and send home on Bactrim Called [employer], ph# and spoke with Vianney bourgeois who will fax over an order for catheter supplies. This would need signed and faxed back with updated progress notes. Kandy last had supplies shipped from them in September. She normally gets 120 intermittent straight caths and 1 salcedo with 2 drain bags per month. Face to face time spent with Patient (minutes): 0 Total Time including non face to face (minutes): 10 * Telephone Encounter - Dottie Bridges RN - 02/04/2025 1:42 PM EDT Provider to address: Reason for Call: No chief complaint on file. Contact: Telephone Call Contact Type: Follow-up Provider In-Basket: No Outcome: Attempted to call patient, no answer, left detailed message asking if she could call back,and about submitting a urine specimen. Will forward also to patients CM, Sulema. Face to face time spent with Patient (minutes): 0 Total Time including non face to face (minutes): 10 * Telephone Encounter - Simi Hernandez CRNP - 02/04/2025 1:31 PM EDT Please call patient This message is high priority 3 days ago ADELSO Fulton, KEVIN [facility] * Telephone Encounter - Simi Hernandez CRNP - 02/01/2025 3:09 PM EST Patient asking for new order for urinary supplies. See media tab order was written for 99 months. Please call [employer] to confirm they are sending supplies and also do they need new order? ANEMIA IS IMPROVED KIDNEYS AND ELECTROLYTES NORMAL. B 12 AND THYROID NORMAL. WHITE CELL COUNT IS HIGH AGAIN- CAN SHE COME IN FOR URINE ADELSO Fulton, KEVIN [facility] documented in this encounter Plan of Treatment Upcoming Encounters Date Type Department Care Team (Late st Contact Info) Description 02/13/2025 1:30 PM EDT Office Visit Urology Kirstie Avina [address] [address] Elba Benitez PA-C [address] [place] [address] 03/01/2025 3:30 PM EDT Office Visit Cardiology, [facility] [address] [address] Flaca Basilio CRNP [address] [place] [address] 03/06/2025 1:00 PM EDT Office Visit [facility] [place] [address] Simi Hernandez CRNP [address] [facility] [place] [address] 03/06/2025 1:40 PM EDT Office Visit Dermatology [facility] [address] [place] [address] Lisa Garcia PA-C [address] [facility] [place] [address] 03/25/2025 10:40 AM EDT Office Visit Neurology [facility] [address] [facility] [place] [address] Andrea Walker MD [address] [facility] [place] [address] 04/05/2025 1:00 PM EDT Office Visit [facility] [address] [facility] [place] [address] Simi Hernandez CRNP [address] [facility] [place] [address] 04/23/2025 11:40 AM EDT Office Visit Infectious Disease, [address] [address] Harriet Sierra MD [address] [place] [address] 05/03/2025 1:00 PM EDT Office Visit [facility] [place] [address] Simi Hernandez CRNP [address] [facility] [place] [address] 05/16/2025 8:00 AM EDT Office Visit [address] [address] Edu Chaudhary, DO [address] [place] [address] 05/30/2025 1:00 PM EDT Office Visit [facility] [address] [place] [address] Simi Hernandez CRNP [address] [place] [address] 06/27/2025 1:00 PM EDT Office Visit [facility] [address] [place] [address] Simi Hernandez CRNP [address] [place] [address] 08/01/2025 1:00 PM EDT Office Visit [facility] [address] [place] [address] Simi Hernandez CRNP [address] [place] [address] 08/29/2025 1:00 PM EDT Office Visit [facility] [address] [place] [address] Simi Hernandez CRNP [address] [place] [address] 10/03/2025 1:00 PM EST Office Visit [facility] [address] [place] [address] Simi Hernandez CRNP [address] [place] [address] 10/31/2025 1:00 PM EST Office Visit [facility] [address] [place] [address] Simi Hernandez CRNP [address] [place] [address] Scheduled Orders Name Type Priority Associated Diagnoses Orde r Schedule URINALYSIS, REFLEX TO CULTURE (NOT FOR NEUTROPENIC PATIENTS) Lab Routine Leukocytosis, unspecified type Expected: 02/01/2025, Expires: 02/01/2026 Scheduled Procedures Name Priority Associated Diagnoses Date/Ti [...] D LEVEL ONCE IN A LIFETIME-USE SMARTSET# [id number] Completed 11/09/2024, 01/17/2023, 04/05/2022, Additional history exists [...] as of this encounter Visit Diagnoses Diagnosis Leukocytosis, unspecified type- Primary documented in this encounter Advance Directives * [...] and were consensually agreed upon. Care Teams Basting Puller Relationship Specialty Start Date End Date Simi Hernandez CRNP [address] [place] [address] PCP - General Nurse Practitioner 10/05/22 documented as of this encounter
--- OUTSIDE RECORDS SUMMARY | 2025-02-19 21:42 | External Medical Summary | Summary of Care ---
Author Name Unknown Organization [facility] Address [address] [place] [address] Phone [phone] Care Team Providers Care Single Pointed Operator Name Role Phone Simi Hernandez Primary Care Provider Reason for Referral * Evaluate & Treat - Unlimited Visits (Within 30 days (routine)) - Authorized Specialty Diagnoses / Procedures Referred By Kenya soliz Referred To Contact Physical Therapy / Physical Medicine And Rehab Diagnoses Multiple sclerosis (HCC) Simi Hernandez CRNP [address] [place] [address] Phone: tel: fax: Referral ID Status Reason Start Date Expiration Date Visits Requested Visits Authorized [id number] Authorized Specialty Services Required 01/30/2025 [id number] Question Answer Referral Priority Within 30 days (routine) Where should this appointment be scheduled? [facility] Comments LEFT SHOULDER oa Ms related debility * Evaluate & Treat - Unlimited Visits (Within 30 days (routine)) - Authorized Specialty Diagnoses / Procedures Referred By Kenya soliz Referred To Contact Psychology Diagnoses Feeling grief Simi Hernandez CRNP [address] [place] [address] Phone: tel: fax: Referral ID Status Reason Start Date Expiration Date Visits Requested Visits Authorized [id number] Authorized Specialty Services Required 01/30/2025 [id number] Question Answer Referral Priority Within 30 days (routine) Where should this appointment be scheduled? [facility] Is this referral for medication management? No Reason for Referral: Depression/Anxiety/Bipolar Specific Condition? Depression Reason for Visit * Reason Comments Re-Check SEEING EYE SPECIALIS T ON TUESDAY.DID SKIN SURGERY ON LEFT SHOULDER YESTERDAY. PRE CA SKIN LESION. Encounter Details Date Type Department Care Team (Latest Contact Info) Description 01/30/2025 11:00 AM EST Office Visit [facility] [address] [place] [address] Simi Hernandez CRNP [address] [place] [address] Feeling grief*; Chronic deep vein thrombosis (DVT) of left peroneal vein (HCC); Coronary artery disease involving twenty-nine palms coronary artery of twenty-nine palms heart without angina pectoris; Pressure injury of coccygeal region, stage 2 (HCC); Multiple sclerosis (HCC); Ulcer of lower extremity, right, limited to breakdown of skin (HCC); Chronic osteomyelitis of fibula (HCC); Moderate episode of recurrent major depressive disorder (HCC); Paroxysmal A-fib (HCC); Iron deficiency anemia, unspecified iron deficiency anemia type; Acute pain of left shoulder; Decreased appetite; Debility Allergies No known active allergiesdocumented as of this encounter (statuses as of 02/01/2025) Medications VITAMIN D 1000 UNITS PO CAPSIndications:O [...] 90 Tablet 01/14/20 25 Active DULoxetine HCl 60 MG Oral Capsule Delayed Release Particles (Cymbalta) Take 1 Capsule by mouth in the morning. Do not cut, crush or chew. 30 Capsule 5 01/31/20 25 Active Diclofenac Sodium 1 % External Gel (Voltaren) Apply topically to affected area 4 times a day. 350 g 4 01/31/20 Active Nystatin 664027 UNIT/ML Mouth/Throat Suspension Swish and swallow 5 mL in the morning and 5 mL at noon and 5 mL in the evening and 5 mL before bedtime. For thrush.. 240 mL 1 01/31/20 25 025 Active DULoxetine HCl 30 MG Oral Capsule [...] as of this encounter (statuses as of 02/01/2025) Active Problems Problem Noted Date Diagnosed Date [...] Debility 11/05/2022 Coronary artery disease invo lving twenty-nine palms coronary artery of twenty-nine palms heart without angina pectoris 11/05/2022 Medical home [...] as of this encounter (statuses as of 02/01/2025) Resolved Problems Problem Noted Date Diagnosed Date [...] as of this encounter (statuses as of 02/01/2025) Immunizations Name Administration Dates Next Due COVID-19 mRNA, LNP-s, No Pre serve, 2-Dose Series (zulily) 04/18/2022,11/12/2021,01/28/2021,01/14 COVID-19, LNP-s, No Preserve , Delfino-sucrose, [...] the money to buy more. Never true 10/03/20 24 Within the past 12 months, t [...] Sign Reading Time Taken Comments Blood Pressure 130/88 01/30/2025 10:50 AM EST Pulse 88 01/30/2025 10:50 AM EST Temperature 36.4 C (97.5 F) 01/30/2025 10:[address] Respiratory Rate - - Oxygen Saturation - - Inhaled Oxygen Concentration - - Weight - - Height - - Body Mass Index - - documented in this encounter Patient Instructions * Patient Instructions* Simi Hernandez CRNP - 01/30/2025 11:19 AM EST 6 documented in this encounter Progress Notes * Simi Hernandez CRNP - 01/30/2025 10:57 AM EST Images from the original note were not included. Follow up Family Medicine Visit CC: Chief Complaint Patient presents with Re-Check SEEING PAVING RAMMER ON TUESDAY. DID SKIN SURGERY ON LEFT SHOULDER YESTERDAY. PRE CA SKIN LESION. History of Present Illness: History of Present Illness Kandy Shelby presents for a routine follow-up after a prolonged absence due to scheduling conflicts. She reports a significant decline in her mental health, stating, "I've really been depressed." Shehas lost interest in painting, a previously enjoyed activity, and attributes this to her depressivestate. In addition to her mental health concerns, she has been dealing with chronic foot issues. She recently underwent a skin graft on her right lateral ankle/ foot, performed by a co director at [facility]. She also reports numbness and tingling in her legs and feet, which she manages with ankle pumps. She has been receiving home physical therapy, but expresses dissatisfaction with the service, stating it was "kind of a joke." She expresses a desire to resume outpatient physical therapy. She also reports a recent skin lesion removal at dermatology, with 14 stitches and a pending biopsy. She has an upcoming appointment at [facility] for vision issues, particularly in her right eye. She has been self-cathing less frequently due to running out of catheters. She mentions she will begetting a bag with a Zuñiga attached for nighttime use. She also reports intermittent fevers and chills over the past month. She expresses frustration with her need for caregivers, which she refers to as "babysitters," and feels this is contributing to her depressive state. She also mentions recent family stressors, including the of her sister's daughter. Social History Socioeconomic History Marital status: Spouse [...] daughters, all healthy; no occupational exposures Social Needs Financial Resource Strain: Low Risk (08/30/2024) Financial Resource Strain Do you have any trouble paying for your medications, or do you think you might in the future? (Adult - for ages 18 years and over): No Does your family have trouble paying for medicine? (Household - for ages 0-17 years): Not on file Food Insecurity: No Food Insecurity (08/30/2024) Food Insecurity Worried About Running Out of Food in the Last Year: Never true Ran Out of Food in the Last Year: Never true Do you need food for this week? (Adult - for ages 18 years and over): No Transportation Needs: No Transportation Needs (08/30/2024) Transportation Needs Do you have trouble getting a ride to medical visits or work? (Adult - for ages 18 years and over):Not on file Does your family have a hard time [...] Stability Do you currently live in a skilled nursing or have no steady place to sleep at night? (Adult - for ages 18 years and over): No Do you think you are at risk of becoming homeless? (Adult - for ages 18 years and over): Not on file Does your family worry about paying for [...] performed by Andrea Stanford MD at OR [facility], FIRST 20 CM2 Right 05/12/2023 R lateral ankle osteomyelitis-Andrea Velasco DPM CARDIAC CATH-CARDIOLOGY ONLY 07/06/2021 [facility] COLONOSCOPY, DIAGNOSTIC (RECTUM) polyp removed not retrieved / INPT [facility] COLONOSCOPY, DIAGNOSTIC (RECTUM) 01/26/2018 poor prep, repeat / INPT [facility] COLONOSCOPY, DIAGNOSTIC (RECTUM) N/A 11/04/2022 poor prep/non-bleeding internal hemorrhoids/recall 3 months/Colonoscopy/[place] COLONOSCOPY, DIAGNOSTIC (RECTUM) 05/05/2023 normal, repeat 5 yrs / COLONOSCOPY FLEXIBLE PROXIMAL DIAGNOSTIC performed by Blanche Chi DO at ENDOSCOPY [facility] CYSTOURETHROSCOPY, INJ FOR CHEMODENERVATION 03/29/2014 CYSTOURETHROSCOPY, INJ FOR CHEMODENERVATION performed by Hannah Milner MD at OR [facility] CYSTOURETHROSCOPY, INJ FOR CHEMODENERVATION 05/22/2015 EGD, FLEXIBLE, DIAGNOSTIC 01/25/2018 normal bx/[facility] EGD, FLEXIBLE, DIAGNOSTIC 04/30/2020 reflux esophagitis, gastric ulcer, repeat 2 mo / [facility] EGD, FLEXIBLE, DIAGNOSTIC 06/18/2020 gastric diverticulum, gastric irritation & ulceration, repeat 3-6 mo / [facility] EGD, FLEXIBLE, DIAGNOSTIC 03/19/2021 erosive gastritis, hiatal hernia / [facility] EGD, FLEXIBLE, DIAGNOSTIC 02/19/2022 erosive gastritis, hiatal hernia / [facility] EGD, FLEXIBLE, DIAGNOSTIC N/A 11/04/2022 large hiatal hernia/gastric diverticulum/EGD/[facility] TOOTH REMOV PART BONY (2) upper wisdom teeth removed IMPLANT/REPLACE SPINE INFUSION PUMP 07/2022 [facility] MASTECTOMY, MODIFIED RADICAL 09/2001 left breast- Dr. Ibrahim PAIN MANAGEMENT CATH 03/13/2009 Medtronic Baclofen pump- Dr. Shabazz- [facility] PARTIAL HIP REPLACEMENT & PROSTH left PARTIAL HYSTERECTOMY approx 1991 Ovaries remain in RECONSTRUCT/REPLACE SHOULDER JOINT Right 05/25/2022 Reverse total shoulder--Thad REMOVAL OF APPENDIX 06/25/[address] Johnson [facility] 06/25/2009 REPAIR THIGH FRACTURE, W/IMPLANT 10/2006 Hip ORIF- left hip Dr. Morales REVERSE TOTAL SHOULDER ARTHROPLASTY Right 05/25/2022 Dr. Oneil [facility] SACROILIAC JOINT INJECT W/GUIDANCE 08/17/2018 INJECTION SACROILIAC JOINT performed by Ulises Tran DO at [facility] SACROILIAC JOINT INJECT W/GUIDANCE 10/09/2018 INJECTION SACROILIAC JOINT performed by Ulises Tran DO at OR [facility] SACROILIAC JOINT INJECT W/GUIDANCE 02/01/2019 INJECTION SACROILIAC JOINT performed by Ulises Tran DO at OR [facility] Current Outpatient Medications Medication Sig Dispense Refill predniSONE 10 MG Oral Tablet (Deltasone) Take 1 tablet by mouth once daily 90 Tablet 0 Azelaic Acid 15 % External Gel (Finacea) Apply to face twice daily as needed 50 g 1 tiZANidine HCl 4 MG Oral Tablet (Zanaflex) Take 1 Tablet by mouth every 6 hours as needed for Muscle spasms. 360 Tablet 0 Doxycycline Monohydrate 100 MG Oral Tablet Take 1 Tablet by mouth in the morning and 1 Tablet before bedtime. 60 Tablet 3 oxyBUTYnin Chloride ER 15 MG Oral Tablet Extended Release 24 Hour (Ditropan XL) Take 1 Tablet by mouth in the morning. In the morning.. 90 Tablet 0 Ferrous Sulfate 325 (65 Fe) MG Oral Tablet Delayed Release Take 1 Tablet by mouth in the morning. Eliquis 5 MG Oral Tablet Take 1 tablet by mouth twice daily 180 Tablet 1 DULoxetine HCl 30 MG Oral Capsule Delayed Release Particles (Cymbalta) Take 1 Capsule by mouth in the morning. Do not cut, crush or chew. 30 Capsule 5 Atorvastatin Calcium 40 MG Oral Tablet (Lipitor) Take 1 Tablet by mouth in the morning. 90 Tablet 3 Losartan Potassium 25 MG Oral Tablet (Cozaar) [...] feet daily as needed. 500 g 2 Omeprazole 40 MG Oral Capsule Delayed Release (PriLOSEC) Take 1 capsule by mouth in the morning 30 Capsule 5 Melatonin 3 MG Oral Tablet Disintegrating Take [...] COVID-19 mRNA, LNP-s, No Preserve, 2-Dose Series (zulily) 04/18/2022 COVID-19, LNP-s, No Preserve, Delfino-sucrose, Ages 12+ (Pfizer) 06/04/2022 Denosumab 01/03/2019 PPD 06/05/2018 Pneumococcal Conjugate Vacc, 13 Valent (Prevnar) 07/30/2020 Pneumococcal Polysaccharide PPV23 (Pneumovax) 07/05/2011 Seasonal Influenza Vac., MDV, IM, 0.5 mL (Fluzone) 08/29/2014 Seasonal Influenza Virus Vaccine, Unspecified Formulation 10/02/2021 Seasonal Influenza, High Dose, Trivalent, PF, IM (Fluzone HD) 09/26/2024 Seasonal [...] Positive for chills and fatigue. Negative for fever. Respiratory: Negative for shortness of breath. Cardiovascular: Positive for leg swelling. Negative for chest pain and palpitations. Gastrointestinal: Negative for abdominal pain, constipation and diarrhea. Skin: Positive for wound. Neurological: Negative for dizziness and syncope. Psychiatric/Behavioral: Positive for dysphoric mood. Negative for sleep disturbance. The patient isnervous/anxious. Physical Exam: BP 130/88 | Pulse 88 | Temp 97.5 F (36.4 C) Physical Exam Constitutional: Comments: Lean, seated in wheelchair HENT: Head: Normocephalic. Cardiovascular: Rate and Rhythm: Normal rate and regular rhythm. Comments: Right leg with alex boot Chronic violaceous changes of lower ext Pulmonary: Effort: Pulmonary effort is normal. Breath sounds: Normal breath sounds. Abdominal: General: Bowel sounds are normal. Palpations: Abdomen is soft. Tenderness: There is no abdominal tenderness. Musculoskeletal: Right lower leg: Edema present. Left lower leg: Edema present. Skin: Comments: Declines polymerization oven tender Pressure sore is healed Neurological: General: No focal deficit present. Mental Status: She is alert and oriented to person, place, and time. Psychiatric: Mood and Affect: Mood normal. Behavior: Behavior normal. Thought Content: Thought content normal. Judgment: Judgment normal. Assessment and Plan: Assessment & Plan Chronic Pain Chronic foot pain persists. Increasing duloxetine may aid management. - Increase duloxetine to 60 mg daily. Depression Depression since August, exacerbated by personal losses and isolation. Current duloxetine dose maybe insufficient. - Increase duloxetine to 60 mg daily. - Refer to a counselor for therapy. Pressure Sore Pressure sore is fully healed, likely due to prolonged sitting and reduced mobility. Avoidance of upright walker may contribute. - Encourage regular use of an upright walker. Right Lower Leg Skin Graft Recent skin graft on right lower leg under co director care. Technical Business Systems Analyst records needed for evaluation. - Obtain records from the co director managing the right leg. Vision Impairment Severe vision impairment, particularly in the right eye. Scheduled evaluation at [facility]. - Proceed with scheduled appointment at [facility]. Urinary Catheterization Self-catheterizing less frequently, sometimes once daily, and out of catheters. Zuñiga catheter beneficial for nighttime management. - Order catheter supplies to be sent to her home. Anemia Anemia requires re-evaluation. Recent intermittent fevers and chills warrant further investigation. - Order blood work to recheck blood count and kidney function. Skin Care Advised to use moisturizer to prevent skin breakdown. Skin appears well-maintained. - Recommend CeraVe healing ointment for daily use on skin. Follow-up Desires to resume regular follow-ups every four to six weeks. - Schedule follow-up appointments every four to six weeks for the rest of the year. 1. Feeling grief (Primary) Sisters kelsea in fall and this is very distressing to her - ADULT/PEDS PSYCHOLOGY REFERRAL OP 2. Chronic deep vein thrombosis (DVT) of left peroneal vein (HCC) Continue eliquis 3. Coronary artery disease involving twenty-nine palms coronary artery of twenty-nine palms heart without angina pectoris Denies anginal symptoms 4. Pressure injury of coccygeal region, stage 2 (HCC) Now healed,, monitor 5. Multiple sclerosis (HCC) Ongoing physical debility - PHYSICAL THERAPY REFERRAL OP 6. Ulcer of lower extremity, right, limited to breakdown of skin (HCC) S/p skin graft 7. Chronic osteomyelitis of fibula (HCC) - BASIC METABOLIC PANEL; Future 8. Moderate episode of recurrent major depressive disorder (HCC) 9. Paroxysmal A-fib (HCC) Rate controlled 10. Iron deficiency anemia, unspecified iron deficiency anemia type - CBC WITH WBC DIFFERENTIAL AND ANEMIA REFLEX WORKUP; Future 11. Acute pain of left shoulder Declines ortho 12. Decreased appetite Ongoing Consider remeron 13. Debility Text in this note was generated using an [employer] documentation service. I discussed the use of a device to record and summarize our discussion today. All persons present during the encounter consented to its use. I have advised the patient to call our office incase of any worsening or new symptoms. I spent a total of 40-54 minutes (exact time 55 mins) on the date of service in preparation, delivery, and documentation of the care provided to Kandy Shelby excluding any time spent in the performance of separately billed services. Kirstin, ADELSO, KEVIN [facility] Medicine documented in this encounter Plan of Treatment Upcoming Encounters Date Type Department Care Team (Late st Contact Info) Description 02/13/2025 1:30 PM EDT Office Visit Urology Kirstie Avina [address] [place] [address] Elba Benitez PA-C [address] [address] 03/01/2025 3:30 PM EDT Office Visit Cardiology, [facility] [address] [address] Flaca Basilio CRNP [address] [place] [address] 03/06/2025 1:00 PM EDT Office Visit Family Practice [facility] [address] [address] Simi Hernandez CRNP [address] [place] [address] 03/06/2025 1:40 PM EDT Office Visit Dermatology [facility] [address] [place] [address] Lisa Garcia PA-C [address] [place] [address] 03/25/2025 10:40 AM EDT Office Visit Neurology [facility] [address] [place] [address] Andrea Walker MD [address] [place] [address] 04/05/2025 1:00 PM EDT Office Visit Family [facility] [address] [facility] [place] [address] [facility] [address] [facility] [address] 04/23/2025 11:40 AM EDT Office Visit Infectious Disease, [address] [address] Harriet Sierra MD [address] [place] [address] 05/03/2025 1:00 PM EDT Office Visit [facility] [address] [place] [address] [facility] [address] [facility] [address] 05/16/2025 8:00 AM EDT Office Visit [address] [address] Edu Chaudhary, DO [address] [place] [address] 05/30/2025 1:00 PM EDT Office Visit [facility] [address] [place] [address] Simi Hernandez CRNP [address] [place] [address] 06/27/2025 1:00 PM EDT Office Visit [facility] [address] [place] [address] Simi Hernandez CRNP [address] [facility] [place] [address] 08/01/2025 1:00 PM EDT Office Visit [facility] [address] [place] [address] Simi Hernandez CRNP [address] [place] [address] 08/29/2025 1:00 PM EDT Office Visit [facility] [address] [place] [address] Simi Hernandez CRNP [address] [place] [address] 10/03/2025 1:00 PM EST Office Visit [facility] [address] [place] [address] Simi Hernandez CRNP [address] [facility] [place] [place] [address] 10/31/2025 1:00 PM EST Office Visit Family Practice [facility] [address] [place] [address] Simi Hernandez CRNP [address] [place] [address] Scheduled Procedures Name Priority Associated Diagnoses Date/Ti me COLONOSCOPY FLEXIBLE PROXIMAL DIAGNOSTIC Recall Screen for colon cancer Scheduled Referrals Name Type Priority Associated Diagnoses Orde r Schedule ADULT/PEDS PSYCHOLOGY REFERRAL OP Referral Within 30 days (routine) Feeling grief Ordered: 01/30/2025 PHYSICAL THERAPY REFERRAL OP Referral Within 30 days (routine) Multiple sclerosis (HCC) Ordered: 01/30/2025 Health Maintenance Due Date Last Done Comments [...] D LEVEL ONCE IN A LIFETIME-USE SMARTSET# [id number] Completed 11/09/2024, 01/17/2023, 04/05/2022, Additional history exists [...] as of this encounter Results * (ABNORMAL) BASIC METABOLIC PANEL (01/30/2025 12:28 PM EST) BUN 24(H) 6 - 20 mg/dL 01/30/2025 1:22 PM EST [facility] [place] [facility] CREATININE 0.9 0.5 - 1.0 mg/dL 01/30/2025 1:22 PM EST [facility] [place] [facility]10 EGFR 70 >=60 mL/min 01/30/2025 1:22 PM EST [facility] [place] 57[facility]10 Comment:eGFR is calculated b ased on the CKD-EPI 2020 equation. SODIUM 139 135 - 146 mmol/L 01/30/2025 1:22 PM EST [facility] [place] [facility]10 POTASSIUM 4.3 3.5 - 5.1 mmol/L 01/30/2025 1:22 PM EST [facility] [place] [facility]10 CHLORIDE 99 98 - 107 mmol/L 01/30/2025 1:22 PM EST [facility] [place] [facility]10 CO2 28 22 - 32 mmol/L 01/30/2025 1:22 PM EST [facility] [place] 57[facility]10 ANION GAP 12 7 - 15 mmol/L 01/30/2025 1:22 PM EST [facility] [place] [facility]10 GLUCOSE 116 70 - 120 mg/dL 01/30/2025 1:22 PM EST [facility] [place] [facility]10 CALCIUM 9.6 8.4 - 10.2 mg/dL 01/30/2025 1:22 PM EST [facility]ORY [facility] [place] 57-10 Blood Venous blood specimen / Unknown Venipuncture / Unknown 01/30/2025 12:28 PM EST 01/30/2025 12:28 PM EST us Simi BROWN LAB BLOOD ORDERABLES F inal Result [facility] [place] [facility] [place] [address] documented in this encounter Visit Diagnoses Diagnosis Feeling grief- Primary Adjustment disorder with depressed mood Chronic deep vein thrombosis (DVT) of left peroneal vein (HCC) Coronary artery disease involving twenty-nine palms coronary artery of twenty-nine palms heart without angina pectoris Pressure injury of coccygeal region, stage 2 (HCC) Multiple sclerosis (HCC) Multiple sclerosis Ulcer of lower extremity, right, limited to breakdown of skin (HCC) Chronic osteomyelitis of fibula (HCC) Moderate episode of recurrent major depressive disorder (HCC) Paroxysmal A-fib (HCC) Atrial fibrillation Iron deficiency anemia, unspecified iron deficiency anemia type Acute pain of left shoulder Decreased appetite Anorexia Debility Debility, unspecified documented in this encounter [...] and were consensually agreed upon. Care Teams Single Pointed Operator Relationship Specialty Start Date End Date Simi Hernandez CRNP [address] [address] PCP - General Nurse Practitioner 10/05/22 documented as of this encounter
--- OUTSIDE RECORDS SUMMARY | 2025-02-19 21:42 | External Medical Summary | Summary of Care ---
Author Name Unknown Organization [facility] Address [address] [place] [address] Phone [phone] Care Team Providers Care Kiln Operator Name Role Phone Simi Hernandez Primary Care Provider Encounter Details Date Type Department Care Team (Late st Contact Info) Description 02/01/2025 Telephone Family Practice [facility] 132 [facility] [place] [address] Simi Hernandez CRNP 132 [facility] [place] [address] Allergies No known active allergiesdocumented as of this encounter (statuses as of 02/11/2025) Medications VITAMIN D 1000 UNITS PO CAPSIndications:Os [...] day. 350 g 4 5 Active Nystatin 738586 UNIT/ML Mouth/Throat Suspension Swish and swallow 5 mL in the morning and 5 mL at noon and 5 mL in the evening and 5 mL before bedtime. For thrush.. 240 mL 1 5 03/01/20 25 Active documented as of this encounter (statuses as of 02/11/2025) Active Problems Problem Noted Date Diagnosed Date [...] as of this encounter (statuses as of 02/11/2025) Resolved Problems Problem Noted Date Diagnosed Date [...] as of this encounter (statuses as of 02/11/2025) Immunizations Name Administration Dates Next Due COVID-19 mRNA, LNP-s, No Pre serve, 2-Dose Series ([facility]) 04/18/2022,11/12/2021,01/28/2021,01/14 COVID-19, LNP-s, No Preserve , Delfino-sucrose, [...] No 08/30/2024 Does the household have a [facility] source of income? (Household - for [...] Type: Orders Provider In-Basket: Yes Outcome: [facility] on [facility]02 diagnosed with UTI and [...] priority 3 days ago ADELSO Fulton, KEVIN [facility] * Telephone Encounter - Simi Hernandez CRNP [...] COME IN FOR URINE ADELSO Fulton, KEVIN [facility] documented in this encounter Plan of Treatment Upcoming Encounters Date Type Department Care Team (Late st Contact Info) Description 02/13/2025 1:30 PM EDT Office Visit Urology Kirstie Avina [address] [place] [address] Elba Benitez PA-C [address] [place] [address] 03/01/2025 3:30 PM EDT Office Visit Cardiology, [facility] 132 [place] [address] Flaca Basilio CRNP 132 [place] [address] 03/06/2025 1:00 PM EDT Office Visit [facility] [place] [address] Sim[facility]NP [facility] [address] 03/06/2025 1:40 PM EDT Office Visit Dermatology [facility] [address] [place] [address] Lisa Garcia PA-C 200 [facility] [place] [address] 03/25/2025 10:40 AM EDT Office Visit Neurology [facility] 200 [facility] [place] [address] Andrea Walker MD 200 [facility] [place] [address] 04/05/2025 1:00 PM EDT Office Visit [facility] 132 [facility] [place] [address] Simi Hernandez CRNP 132 [facility] [address] 04/23/2025 11:40 AM EDT Office Visit Infectious Disease, [address] [address] Harriet Sierra MD [address] [place] [address] 05/03/2025 1:00 PM EDT Office Visit [facility] [place] [address] Simi Hernandez CRNP 132 [facility] [place] [address] 05/16/2025 8:00 AM EDT Office Visit [address] [address] Edu Chaudhary, DO [address] [facility] [place] [address] 05/30/2025 1:00 PM EDT Office Visit [facility] [address] [place] [address] Simi Hernandez CRNP [address] [place] [address] 06/27/2025 1:00 PM EDT Office Visit [facility] [address] [place] [address] Simi Hernandez CRNP 132 [address] [facility] [place] [address] 08/01/2025 1:00 PM EDT Office Visit [facility] [address] [place] [address] Simi Hernandez CRNP [address] [place] [address] 08/29/2025 1:00 PM EDT Office Visit [facility] [address] [place] [address] Simi Hernandez CRNP [address] [place] [address] 10/03/2025 1:00 PM EST Office Visit [facility] [address] [place] [address] Simi Hernandez CRNP [address] [place] [address] 10/31/2025 1:00 PM EST Office Visit Family [facility] [address] [place] [address] Simi Hernandez CRNP [address] [place] [address] Scheduled Orders Name Type Priority Associated Diagnoses [...] D LEVEL ONCE IN A LIFETIME-USE SMARTSET# [id number] Completed 11/09/2024, 01/17/2023, 04/05/2022, Additional history exists [...] and were consensually agreed upon. Care Teams Kiln Operator Relationship Specialty Start Date End Date Simi Hernandez CRNP 132 [place] [address] PCP - General Nurse Practitioner 10/05/22 documented as of this encounter
--- OUTSIDE RECORDS SUMMARY | 2025-02-19 21:42 | External Medical Summary | Summary of Care ---
Author Name Unknown Organization [facility] Address [address] [place] [address] Phone [phone] Care Team Providers Care Producer Director Name Role Phone Simi Hernandez Primary Care Provider Reason for Visit * Reason Onset Date Comments Advice 02/02/2025 Encounter Details Date Type Department Care Team (Late st Contact Info) Description 02/02/2025 Telephone Family Practice [facility] 132 [facility] [place] [address] Simi Hernandez CRNP 132 [facility] [place] [address] Advice Allergies No known active allergiesdocumented as [...] day. 350 g 4 5 Active Nystatin 585239 UNIT/ML Mouth/Throat Suspension Swish and swallow 5 mL in the morning and 5 mL at noon and 5 mL in the evening and 5 mL before bedtime. For thrush.. 240 mL 1 5 025 Active Cephalexin 500 MG Oral Capsule (Keflex) Take 1 Capsule by mouth in the morning and 1 Capsule before bedtime. From [facility] ER on 02/05/25 for klebsiella uti [...] Debility 11/05/2022 Coronary artery disease invo lving circle coronary artery of circle heart without angina pectoris 11/05/2022 Medical home patient encounter 09/30/2022 S/P shoulder replacement, right 09/07/2022 ESBL E. coli carrier 09/07/2022 Presence of intrathecal baclofen pump 09/07/2022 History of VT (myocardial infarction) 05/12/2022 Mass of chest wall, [...] No 08/30/2024 Does the household [facility]? (Household - for [...] hold with her supplies as Kandy has [facility] at this time who is providing supplies. [...] as soon as they receive confirmation from [facility] that the patient is discharged from . Kandy also reported that she was originally given bactrim at [facility] for a + UA on 02/02, [...] calls please transfer her to my line [phone] * Telephone Encounter - Aurora Flores OSA [...] [address] [place] [address] Elba Benitez PA-C [address] [place] [address] 03/01/2025 3:30 PM EDT Office Visit Cardiology, [facility] [address] [place] [address] Flaca Basilio CRNP [address] [place] [address] 03/06/2025 1:00 PM EDT Office Visit Family Practice [facility] [address] [place] [address] Simi Hernandez CRNP [address] [place] [address] 03/06/2025 1:40 PM EDT Office Visit Dermatology [facility] 200 [facility] [place] [address] Lisa Garcia PA-C 200 [facility] [place] [address] 03/25/2025 10:40 AM EDT Office Visit Neurology [facility] [address] [place] [address] Andrea Walker MD [address] [place] [address] 04/05/2025 1:00 PM EDT Office Visit [facility] 132 [place] [address] Simi Hernandez CRNP 132 [place] [address] 04/23/2025 11:40 AM EDT Office Visit Infectious Disease, [address] [address] Harriet Sierra MD [address] [place] [address] 05/03/2025 1:00 PM EDT Office Visit [facility] 132 [place] [address] Simi Hernandez CRNP 132 [place] [address] 05/16/2025 8:00 AM EDT Office Visit [address] [address] Edu Chaudhary DO [address] [place] [address] 05/30/2025 1:00 PM EDT Office Visit [facility] 132 [place] [address] Simi Hernandez CRNP 132 [place] [address] 06/27/2025 1:00 PM EDT Office Visit [facility] [address] [place] [address] Simi Hernandez CRNP [address] [place] [address] 08/01/2025 1:00 PM EDT Office Visit [facility] [address] [place] [address] Simi Hernandez CRNP [address] [place] [address] 08/29/2025 1:00 PM EDT Office Visit [facility] [address] [place] [address] Simi Hernandez CRNP [address] [place] [place] [address] 10/03/2025 1:00 PM EST Office Visit [facility] [address] [place] [address] Simi Hernandez CRNP [address] [place] [address] 10/31/2025 1:00 PM EST Office Visit [facility] [address] [place] [address] Simi Hernandez CRNP [address] [place], [place] [address] Scheduled Procedures Name Priority Associated Diagnoses Date/Ti [...] D LEVEL ONCE IN A LIFETIME-USE SMARTSET# [id number] Completed 11/09/2024, 01/17/2023, 04/05/2022, Additional history exists [...] and were consensually agreed upon. Care Teams Producer Director Relationship Specialty Start Date End Date Simi Hernandez CRNP [address] [place] [address] PCP - General Nurse Practitioner 10/05/22 documented as of this encounter
--- OUTSIDE RECORDS SUMMARY | 2025-02-19 21:43 | External Medical Summary ---
Author Name Unknown Address Unknown Organization [id number]:[facility]ORY [facility] [place] - [address] [place] [address] Laboratory Report Ordering Provider Test Date Status GATITO ANDREA 01/30/2025 12:28:20 Final Observation Date Value Abnormality Reference (Units ) Status Vitamin B12 01/30/2025 12:28:20 009 187-1118 (pg/mL) Final Performing Location [facility] - [address] [place] [address]
--- OUTSIDE RECORDS SUMMARY | 2025-02-19 21:43 | External Medical Summary ---
Author Name Unknown Address Unknown Organization [id number][place] [place] [address] [facility] [address] Laboratory Report Ordering Provider Test Date Status ANITA ANDREASelwyn 01/30/2025 12:28:20 Final Observation Date Value Abnormality Reference (Units ) Status TSH 01/30/2025 12:28:20 2.29 0.27-4.20 (uIU/mL) Final Performing Location [facility] - [address] [facility] [address]
--- OUTSIDE RECORDS SUMMARY | 2025-02-19 21:43 | External Medical Summary ---
Author Name Unknown Address Unknown Organization K01:[facility] [place] 100 [facility] [address] Laboratory Report Ordering Provider Test Date Status GATITO ANDREA 01/30/2025 12:28:20 Final Observation Date Value Abnormality Reference (Units ) Status SYNC LEUKOCYTES IN BLOOD BY AUTOMATED COUNT 01/30/2025 12:28:20 12.88 Above high normal 4.00-10.80 (K/uL) Final Segs 01/30/2025 12:28:20 90.5 Above high normal 40.0-75.0 (%) Final Lymphs % 01/30/2025 12:28:20 2.4 Below low normal 18.0-42.0 (%) Final Monos 01/30/2025 12:28:20 5.4 1.0-11.0 (%) Final Eosinophils 01/30/2025 12:28:20 0.9 0.0-6.0 (%) Final Basos 01/30/2025 12:28:20 0.4 0.0-2.0 (%) Final Immature Granulocyte, Percent 01/30/2025 12:28:20 0.4 0.0-2.0 (%) Final Absolute Segs 01/30/2025 12:28:20 11.67 Above high normal 1.80-7.70 (K/uL) Final Lymphs, absolute 01/30/2025 12:28:20 0.31 Below low normal 1.00-4.80 (K/ul) Final Monos, Abs 01/30/2025 12:28:20 0.69 0.00-1.10 (K/uL) Final Eos, Abs 01/30/2025 12:28:20 0.11 0.00-0.70 (K/uL) Final Basos, Abs 01/30/2025 12:28:20 0.05 0.00-0.20 (K/uL) Final Immature Granulocytes, Number 01/30/2025 12:28:20 0.05 0.00-0.20 (K/uL) Final Performing Location [facility] [place] [facility] [place] [address] [place] [facility] [address]
--- OUTSIDE RECORDS SUMMARY | 2025-02-19 21:43 | External Medical Summary | Summary of Care ---
Author Name Unknown Organization [facility] Address [address] [place] [address] Phone [phone] Care Team Providers Care Automobile Mechanic Name Role Phone Simi Hernandez Tami BROWN Primary Care Provider Reason for Visit * Reason Comments Follow Up Encounter Details Date Type Department Care Team (Late st Contact Info) Description 01/01/2025 11:40 AM EST Office Visit Infectious Disease, [address] [address] Harriet Sierra MD [address] [place] [address] Ulcer of foot, chronic, right, with unspecified severity (HCC)*; History of multiple sclerosis (HCC) Allergies No known active allergiesdocumented as of this encounter (statuses as of 01/31/2025) Medications VITAMIN D 1000 UNITS PO CAPSIndications:Os [...] once daily 90 Tablet 1 06/08/20 24 025 Discontinued DULoxetine HCl 30 MG Oral Capsule Delayed Release Particles (Cymbalta) Take 1 Capsule by mouth in the morning. Do not cut, crush or chew. 30 Capsule 5 07/27/20 025 Discontinued oxyBUTYnin Chloride ER 15 MG [...] Debility 11/05/2022 Coronary artery disease invo lving cahuilla coronary artery of cahuilla heart without angina pectoris 11/05/2022 Medical home [...] mRNA, LNP-s, No Pre serve, 2-Dose Series ([employer]) 04/18/2022,11/12/2021,01/28/2021,01/14 COVID-19, LNP-s, No Preserve , Delfino-sucrose, [...] 0 07/05/1974 - 07/05/1980 Smokeless Tobacco: Never Tobacco Cessation:Counseling Given: [...] No 08/30/2024 Does the household have a [facility] source [facility]? (Household - for [...] Sign Reading Time Taken Comments Blood Pressure 128/72 01/01/2025 11:58 AM EST Pulse 64 01/01/2025 11:58 AM EST Temperature 37.1 C (98.7 F) 01/01/2025 11:[address] Respiratory Rate - - Oxygen Saturation 98% 01/01/2025 11:58 AM EST Inhaled Oxygen Concentration - - Weight - - Height - - Body Mass Index - - documented in this encounter Progress Notes * Harriet Sierra MD - 01/31/2025 11:15 AM EST INFECTIOUS DISEASE, [facility]: HPI: Mrs. 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 She has Hx of chronic poorly healing Rt ankle ulcer which was treated multiple times in the past. Right fibular bone culture from April 2023 grew Enterococcus faecalis (ampicillin susceptible) and was treated with 6 weeks of IV ampicillin which she completed on June 24, 2023. She underwent I&D inOct 2022 with distal fibular resection with cultures then growing corynebacterium. Per our recommendations, she was discharged on a 6 week course of IV vancomycin and which she completed on 11/02/2023. In 09/2024, she underwent I&D of the wound on 10/22/2024 with intra-op Cx growing low counts mixed probable skin microbiota likely contamination with pathology showing no osteomyelitis; therefore, I decided to monitor without any treatment and continue wound care. During today's encounter, she mentioned that she has been doing well and her wound still open but not draining. Review of patient's allergies indicates: No Known [...] 1 Tablet by mouth in the morning. oxyBUTYnin Chloride ER 15 MG Oral Tablet Extended Release 24 Hour (Ditropan XL) Take 1 Tablet by mouth in the morning. In the morning.. 90 Tablet 0 Doxycycline Monohydrate 100 MG Oral [...] 4 times a day. 350 g4 Nystatin 868807 UNIT/ML Mouth/Throat Suspension Swish and swallow 5 mL in the morning and 5 mL at noon and 5 mL in the evening and 5 mL before bedtime. For thrush.. 240 mL 1 No current facility-administered medications for this visit. 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 BP 128/72 | Pulse 64 | Temp 37.1 C (98.7 F) | SpO2 98% PHYSICAL EXAM: General: pleasant lady sitting in her chair comfortably and in no acute respiratory or pain distress. Cardiac: Regular heart rate with no murmurs, gallops, or rubs. Both, S1 and S2 are heard. Respiratory: The chest wall is symmetric and without deformity. No signs of respiratory distress. Good bilateral air entry with no wheezes or crackles. Extremities/Skin: Rt lateral malleolar wound is still open but smaller in size compared to last visit and with no drainage. Neurological: The patient is awake, alert and oriented to person, place, and time with normal speech. Psychiatric: Appropriate mood and affect. Good judgement and insight. IMPRESSION: 1. Chronic Rt lateral malleolus wound - with hx of lower fibular osteomyelitis (treated) 2. Status post lower fibular resection at [facility] on 09/21/2023 and I&D on 10/22/2024 3. Hx of Multiple sclerosis RECOMMENDATIONS: - No indication for antibiotics. She is to continue wound care of the Rt lateral malleolar wound. - We will reassess in 3 months. Follow up: in 12 week(s) Harriet Sierra MD Infectious Disease, [address] [address] documented in this encounter Plan of Treatment Upcoming Encounters Date Type Department Care Team (Late st Contact Info) Description 02/13/2025 1:30 PM EDT Office Visit Urology Kirstie Avina [address] [place] [address] Elba Benitez PA-C [address] [place] [address] 03/01/2025 3:30 PM EDT Office Visit Cardiology, [facility] [address] [place] [address] Flaca Basilio CRNP 132 [facility] [place] [address] 03/06/2025 1:00 PM EDT Office Visit Family [facility] [address] [place] [address] Simi Hernandez CRNP 132 [facility] [place] [address] 03/25/2025 10:40 AM EDT Office Visit Neurology [facility] 200 [facility] [place] [address] Andrea Walker MD 200 [facility] [place] [address] 04/05/2025 1:00 PM EDT Office Visit [facility] [address] [place] [address] Simi Hernandez CRNP [address] [place] [address] 04/23/2025 11:40 AM EDT Office Visit Infectious Disease, [address] [address] Harriet Sierra MD [address] [place] [address] 05/03/2025 1:00 PM EDT Office Visit [facility] 132 [place] [address] Simi Hernandez CRNP 132 [facility] [place] [address] 05/16/2025 8:00 AM EDT Office Visit [address] [address] Edu Chaudhary DO [address] [place] [address] 05/30/2025 1:00 PM EDT Office Visit [facility] 132 [place] [address] Simi Hernandez CRNP 132 [facility] [place] [address] 06/27/2025 1:00 PM EDT Office Visit [facility] [address] [facility] [place] [address] Simi Hernandez CRNP 132 [facility] [place] [address] 08/01/2025 1:00 PM EDT Office Visit [facility] [address] [place] [address] Smii Hernandez CRNP 132 [facility] [place] [address] 08/29/2025 1:00 PM EDT Office Visit [facility] [address] [place] [address] Simi Hernandez CRNP [address] [place] [address] 10/03/2025 1:00 PM EST Office Visit [facility] [address] [place] [address] Simi Hernandez CRNP [address] [place] [address] 10/31/2025 1:00 PM EST Office Visit [facility] [address] [place] [address] Simi Hernandez CRNP [address] [place] [address] Scheduled Procedures Name Priority Associated Diagnoses Date/Ti [...] D LEVEL ONCE IN A LIFETIME-USE SMARTSET# [id number] Completed 11/09/2024, 01/17/2023, 04/05/2022, Additional history exists [...] as of this encounter Visit Diagnoses Diagnosis Ulcer of foot, chronic, right, with unspecified severity (HCC)- Primary History of multiple sclerosis (HCC) Personal history of other disorders of nervous system and sense organs documented in this encounter Advance Directives * [...] and were consensually agreed upon. Care Teams Automobile Mechanic Relationship Specialty Start Date End Date Simi Hernandez CRNP [address] [place] [address] PCP - General Nurse Practitioner 10/05/22 documented as of this encounter"
--- OUTSIDE RECORDS SUMMARY | 2025-02-19 21:43 | External Medical Summary ---
Author Name Unknown Address Unknown Organization K01:[facility]ATORY [facility] - [address] [facility] [address] Laboratory Report Ordering Provider Test Date Status GATITO ANDREA 01/30/2025 12:28:20 Final Observation Date Value Abnormality Reference (Units ) Status Folic Acid 01/30/2025 12:28:20 >20.0 >4.5 (ng/ mL) Final Performing Location [facility] - [address] [facility] [address]
--- OUTSIDE RECORDS SUMMARY | 2025-02-19 21:43 | External Medical Summary ---
Author Name Unknown Address Unknown Organization K01:[facility] [place] [address] [place] [address] Laboratory Report Ordering Provider Test Date Status GATITO ANDREA 01/30/2025 12:28:20 Final Observation Date Value Abnormality Reference (Units ) Status Iron 01/30/2025 12:28:20 15 Below low normal 33-151 (ug/dL) Final Iron-binding capacity 01/30/2025 12:28:20 246 Below low normal 250-425 (ug/dL) Final Transferrin Sat % 01/30/2025 12:28:20 6 Below low normal 15-55 (%) Final Performing Location [facility] [place] [address] [place] [address]
--- OUTSIDE RECORDS SUMMARY | 2025-02-19 21:43 | External Medical Summary ---
Author Name Unknown Address Unknown Organization K01:[facility] [place] - [address] [facility] [address] Laboratory Report Ordering Provider Test Date Status GATITO ANDREA 01/30/2025 12:28:20 Final Observation Date Value Abnormality Reference (Units ) Status Ferritin 01/30/2025 12:28:20 160 Above high normal 13 -150 (ng/mL) Final Postmenopausal women have hi gher ferritin levels than pre-menopausal women. The above reference interval is based on pre-menopausal women. Performing Location [facility] - [address] [facility] [address]
--- OUTSIDE RECORDS SUMMARY | 2025-02-19 21:43 | External Medical Summary ---
Author Name Unknown Address Unknown Organization K01:LABORATORY C - [address] [facility] [place] [address] Laboratory Report Ordering Provider Test Date Status GATITO ANDREA 01/30/2025 12:28:20 Final Observation Date Value Abnormality Reference (Units ) Status WBC, Total 01/30/2025 12:28:20 12.88 Above high normal 4 .00-10.80 (K/uL) Final RBC 01/30/2025 12:28:20 3.62 3.85-5.15 (M/uL) Final Hemoglobin 01/30/2025 12:28:20 9.7 Below low normal 12 .0-15.3 (g/dL) Final Anemia reflex testing trigge rs on a HGB < 12.0 for Females and HGB < 13.0 for Males in accordance with the WHO Anemia Guidelines
Anemia reflex testing triggers on a HGB < 12.0 for Females and HGB < 13.0 for Males in accordance with the WHO Anemia Guidelines HCT 01/30/2025 12:28:20 33.1 Below low normal 36. 0-45.2 (%) Final MCV 01/30/2025 12:28:20 91.4 81.5-97.5 (fL) Final MCH 01/30/2025 12:28:20 26.8 27.0-34.0 (pg) Final MCHC 01/30/2025 12:28:20 29.3 32.0-36.0 (g/dL) Final RDW 01/30/2025 12:28:20 16.6 11.5-15.5 (%) Final Platelets 01/30/2025 12:28:20 478 Above hi gh normal 140-400 (K/uL) Final MPV 01/30/2025 12:28:20 11.8 6.6-11.1 ( fL) Final Nucleated erythrocytes/100 leukocytes [Ratio] in Blood by Automated count 01/30/2025 12:28:20 0 <=0 (/100 WBCs) Final Performing Location LABORATORY [facility] [place] - [facility] [address]. [facility] [address]
--- OUTSIDE RECORDS SUMMARY | 2025-02-19 21:43 | External Medical Summary ---
Author Name Unknown Address Unknown Organization K01:LABORATORY [place] [address] [address] [facility] [address] Laboratory Report Ordering Provider Test Date Status GATITO ANDREA 01/30/2025 12:28:20 Final Observation Date Value Abnormality Reference (Units ) Status Retic, % (auto) 01/30/2025 12:28:20 1.77 0.80-1.90 (%) Final Reticulocytes, Absolute 01/30/2025 12:28:20 63.0 31.3-100.1 (K/uL) Final Reticulocyte fraction, immature 01/30/2025 12:28:20 29.6 Above high normal 2.5-20.6 (%) Final Reticulocyte HGB 01/30/2025 12:28:20 24.6 Below low normal 29.7-37.4 (pg) Final Performing Location LABORATORY [facility] [place] - [address] [facility] [address]
--- OUTSIDE RECORDS SUMMARY | 2025-02-19 21:43 | External Medical Summary | Summary of Care ---
Author Name Unknown Organization [facility] Address [address] [place] [address] Phone [phone] Care Team Providers Care Knife Finisher Name Role Phone David Simi Tami BROWN Primary Care Provider Reason for Visit * Reason Comments Outpatient Testing Encounter Details Date Type Department Care Team (Late st Contact Info) Description 01/30/2025 12:10 PM EST Laboratory Laboratory, [facility] [phone] [facility] [address] Iron deficiency anemia, unspecified iron deficiency anemia type; Chronic osteomyelitis of fibula (HCC) Allergies No known active allergiesdocumented as of this encounter (statuses as of 01/30/2025) Medications VITAMIN D 1000 UNITS PO CAPSIndications:Os [...] by mouth in the morning. 4 Active oxyBUTYnin Chloride ER 15 MG Oral Tablet Extended Release 24 Hour (Ditropan XL)Indications:Jameel rogenic bladder Take 1 Tablet by mouth in the morning. In the morning.. 90 Tablet 4 Active Doxycycline Monohydrate 100 MG Oral [...] mouth once daily 90 Tablet 5 Active DULoxetine HCl 60 MG Oral Capsule Delayed Release Particles (Cymbalta) Take 1 Capsule by mouth in the morning. Do not cut, crush or chew. 30 Capsule 5 5 Active Diclofenac Sodium 1 % External Gel (Voltaren) Apply topically to affected area 4 times a day. 350 g 4 5 Active Nystatin 215992 UNIT/ML Mouth/Throat Suspension Swish and swallow 5 mL in the morning and 5 mL at noon and 5 mL in the evening and 5 mL before bedtime. For thrush.. 240 mL 1 5 03/01/20 Active documented as of this encounter (statuses as of 01/30/2025) Active Problems Problem Noted Date Diagnosed Date [...] Coronary artery disease [place] coronary artery of [place] heart without angina pectoris 11/05/2022 Medical home [...] as of this encounter (statuses as of 01/30/2025) Resolved Problems Problem Noted Date Diagnosed Date [...] as of this encounter (statuses as of 01/30/2025) Immunizations Name Administration Dates Next Due COVID-19 [...] 02/13/2025 1:30 PM EDT Office Visit Urology Edu [facility] [address] [place] [address] Elba Benitez PA-C [address] [place] [address] 03/01/2025 3:30 PM EDT Office Visit Cardiology, [facility] 132 [facility] [place] [address] Flaca Basilio CRNP [facility] [address] 03/06/2025 1:00 PM EDT Office Visit [facility] 132 [facility] [place] [address] Simi Hernandez [facility]NP [facility] [address] 03/25/2025 10:40 AM EDT Office Visit Neurology [facility] [address] [place] [address] [facility] [address] 04/05/2025 1:00 PM EDT Office Visit [facility] 132 [facility] [place] [address] Simi Hernandez CRNP [facility] [address] 04/23/2025 11:40 AM EDT Office Visit Infectious Disease, [address] [place] [address] Harriet Sierra MD [address] [place] [address] 05/03/2025 1:00 PM EDT Office Visit [facility] [address] [facility] [address] Simi Hernandez CRNP [address] [place] [address] 05/16/2025 8:00 AM EDT Office Visit [facility] [address] [place] [address] Edu Chaudhary, DO [address] [facility] [place] [address] 05/30/2025 1:00 PM EDT Office Visit [facility] [address] [place] [address] Simi Hernandez CRNP [address] [facility] [place] [address] 06/27/2025 1:00 PM EDT Office Visit [facility] 132 [facility] [place] [address] Simi Hernandez CRNP [address] [facility] [place] [address] 08/01/2025 1:00 PM EDT Office Visit [facility] 132 [facility] [place] [address] Simi Hernandez CRNP [address] [place] [address] 08/29/2025 1:00 PM EDT Office [facility] [address] [facility] [place] [address] Simi Hernandez CRNP [address] [place] [address] 10/03/2025 1:00 PM EST Office Visit [facility] [address] [place] [address] Simi Hernandez CRNP [address] [place] [address] 10/31/2025 1:00 PM EST Office Visit [facility] [address] [place] [address] Simi Hernandez CRNP [address] [place] [address] Pending Results Name Type Priority Associated Diagnoses Date /Time CBC WITH WBC DIFFERENTIAL AND ANEMIA REFLEX WORKUP Lab Routine Iron deficiency anemia, unspecified iron deficiency anemia type 01/30/2025 12:28 PM EST ANEMIA CBC Lab Routine Iron deficiency anemia, unspecified iron deficiency anemia type 01/30/2025 12:28 PM EST DIFFERENTIAL, AUTOMATED Lab Routine Iron deficiency anemia, unspecified iron deficiency anemia type 01/30/2025 12:28 PM EST ANEMIA REFLEX CHEMISTRY HOLD Lab Routine Iron deficiency anemia, unspecified iron deficiency anemia type 01/30/2025 12:28 PM EST Scheduled Procedures Name Priority Associated Diagnoses [...] D LEVEL ONCE IN A LIFETIME-USE SMARTSET# [id number] Completed 11/09/2024, 01/17/2023, 04/05/2022, Additional history exists [...] Procedure Name Priority Date/Time Associated Diagnosis Comments BASIC METABOLIC PANEL Routine 01/30/2025 12:28 PM EST Chronic osteomyelitis of fibula (HCC) documented in this encounter Results * (ABNORMAL) BASIC METABOLIC PANEL (01/30/2025 12:28 PM EST) BUN 24(H) 6 - 20 mg/dL 01/30/2025 1:22 PM EST LABORATORY [facility] 57-10 CREATININE 0.9 0.5 - 1.0 mg/dL [...] 10.2 mg/dL 01/30/2025 1:22 PM EST LABORATORY [place] 57-10 Blood Venous blood specimen / Unknown Venipuncture / Unknown 01/30/2025 12:28 PM EST 01/30/2025 12:28 PM EST us Simi BROWN LAB BLOOD ORDERABLES F inal Result LABORATORY [place] 57-[address] [place] [address] documented in this encounter Visit Diagnoses Diagnosis Iron deficiency anemia, unspecified iron deficiency anemia type Chronic osteomyelitis of fibula (HCC) documented in this encounter Advance Directives [...] and were consensually agreed upon. Care Teams Knife Finisher Relationship Specialty Start Date End Date Simi Hernandez CRNP [address] [place] [address] PCP - General Nurse Practitioner 10/05/22 documented as of this encounter
--- OUTSIDE RECORDS SUMMARY | 2025-02-19 21:43 | External Medical Summary ---
Author Name Unknown Address Unknown Organization K0G:LABORATORY [place] 57-10 - [address] [place] [address] Laboratory Report Ordering Provider Test Date Status GATITO ANDREA 01/30/2025 12:28:20 Final Observation Date Value Abnormality Reference (Units ) Status BUN 01/30/2025 12:28:20 24 Above high normal 6-20 (mg/dL) Final Creatinine 01/30/2025 12:28:20 0.9 0.5-1.0 (mg/dL) Final Glomerular filtration rate/1.73 sq M.predicted [Volume Rate/Area] in Serum, Plasma or Blood by Creatinine-based formula (CKD-EPI) 01/30/2025 12:28:20 70 >=60 (mL/min) Final eGFR is calculated based on the CKD-EPI 2020 equation. Sodium 01/30/2025 12:28:20 139 135-146 (m mol/L) Final Potassium 01/30/2025 12:28:20 4.3 3.5-5.1 (m mol/L) Final Cl 01/30/2025 12:28:20 99 98-107 (mm ol/L) Final CO2 01/30/2025 12:28:20 28 22-32 (mmo l/L) Final Anion gap 01/30/2025 12:28:20 12 7-15 (mmol /L) Final Glucose 01/30/2025 12:28:20 116 70-120 (mg /dL) Final Calcium 01/30/2025 12:28:20 9.6 8.4-10.2 ( mg/dL) Final Performing Location LABORATORY [place] 57-1 0 - [address] [place] [address]
[2025-02-19] MEDS: tiZANidine HCL 4 MG TABLET PO SCH (23:58)
[2025-02-20] MEDS: METOPROLOL TARTRATE 1 MG/ML VIAL IV STA (02:05)
[2025-02-20] MEDS: POTASSIUM CHLORIDE PWD 20 MEQ PACK PO STA (02:06)
[2025-02-20] MEDS: MAGNESIUM SULFATE / D5W 1 GM/100 ML BAG IV ONE (02:06)
[2025-02-20 07:31] LABS: Hematocrit (blood only) 22.2 % (37.0-47.0); Hemoglobin 6.8 g/dl (12.0-16.0); Mean Corpuscular Hemoglobin 25.8 pg (25.0-34.0); Mean Corpuscular Hgb Conc 30.6 g/dL (32.0-36.0); Mean Corpuscular Volume 84.1 fL (80.0-100.0); Mean Platelet Volume 9.6 fL (9.4-12.4); Platelet Count 353 K/uL (130-400); RDW Standard Deviation 57.2 fL (36.4-46.3); Red Blood Count 2.64 M/uL (4.20-5.40); White Blood Count 5.66 K/ul (4.8-10.8)
[2025-02-20 07:35] LABS: Calcium 8.3 mg/dl (8.6-10.3); Potassium 3.9 mmol/L (3.5-5.1)
[2025-02-20 07:40] LABS: BUN Creatinine Ratio 41.7 (10-20)
[2025-02-20] MEDS ORDERED: SODIUM CHLORIDE 0.9% 100 ML IV PRN (07:41)
[2025-02-20 07:56] LABS: Basophils # (auto) 0.03 K/uL (0.00-0.20); Basophils % (auto) 0.5 %; Eosinophils # (auto) 0.09 K/uL (0.00-0.50); Eosinophils % (auto) 1.6 %; Immature Granulocytes # (auto) 0.02 K/uL (0.01-0.20); Immature Granulocytes % (auto) 0.4 %; Lymphocytes # (auto) 1.08 K/uL (1.20-3.40); Lymphocytes % (auto) 19.1 %; Monocytes % (auto) 8.8 %; Neutrophils # (auto) 3.94 K/uL (1.40-6.50); Neutrophils % (auto) 69.6 %; Ovalocytes 1+; Polychromasia 1+; Target Cells 1+
[2025-02-20] MEDS: PANTOprazole 40 MG/10 ML SYR IV SCH (08:30)
[2025-02-20] MEDS: ATORVASTATIN 40 MG TAB PO SCH (08:34)
[2025-02-20] MEDS: DULoxetine HCL 60 MG CAP PO SCH (08:34)
[2025-02-20] MEDS: MULTIVITAMIN TAB PO SCH (08:34)
[2025-02-20] MEDS: CHOLECALCIFEROL 25 MCG (1000 UNITS) TAB PO SCH (08:34)
[2025-02-20] MEDS: OXYBUTYNIN CHLORIDE XL 5 MG TABCR PO SCH (08:34)
[2025-02-20] MEDS: predniSONE 10 MG TABLET PO SCH (08:34)
[2025-02-20] MEDS ORDERED: FERROUS SULFATE 325 MG TAB PO SCH (09:00)
--- NOTE | 2025-02-20 10:07 | Gastrointestinal Consultation ---
Date of Consultation February 20, 2025 Supervising Physician Co-Signing Physician Notes Recurrent iron deficiency times years. Fairly recent colonoscopy within the last 1 to 2 years. Patient is on chronic blood thinners. This likely represents bleeding from AVMs. Will perform an EGD tomorrow to evaluate for potential treatable sources in the upper GI tract. Patient has been somewhat noncompliant with his iron supplementation as it paradoxically causes her to have diarrhea. If unable to tolerate oral iron every 3 monthly iron infusions may be of benefit. Patient getting blood transfusion at present. EGD tomorrow. Patient agreeable. History of Present Illness Reason for Consultation: Progressive anemia, consideration of EGD Attending Physician: Viktor Bee MD History of Present Illness Patient is a 74 yo female with extensive PMH as listed below who presented to the ED due to weakness and possible UTI. She has been on antibiotics for this as an outpatient. She has a history of MS and has been more dependent on her wheelchair. She was unable to step out of the shower and remembers lowering herself to the ground. She had a mild leukocytosis in the ED and initial hemoglobin was 7.7. Overnight, her hgb did declined to 6.8. A GI consult was requested. Recent labs from September 2024 indicated an iron deficiency anemia with an iron level of 18 and T sat was 7%. Current H/H 6.8/22.2. BUN 30, Cr 0.72. She is on Eliquis. She has a history of an EGD & colonoscopy in 2021 for anemia. These were unremarkable with the exception of a poor colon prep. She did have a repeat colonoscopy in April 2023 that was unremarkable. She denies hematemesis, melena, hematochezia. No other GI symptoms. She does reportedly have a history of a gastric ulcer. Patient notes a history of iron deficiency anemia and notes she has not been taking the iron supplementation she was ordered. She notes that she occasionally has required blood transfusions and iron infusions in the past, but has not sought out hematologic care in some time. Allergies Allergy/AdvReac Type Severity Reaction Status Date / Time No Known Allergies Allergy Verified 02/05/25 11:22 Home Medications Medication Instructions Recorded Confirmed Type cholecalciferol (vitamin D3) 25 2,000 units PO QAM 09/18/18 02/19/25 History mcg (1,000 unit) capsule oxybutynin chloride 15 mg 15 mg PO QAM 09/18/18 02/19/25 History tablet,extended release 24 hr prednisone 10 mg tablet 10 mg PO QAM 09/18/18 02/19/25 History teriflunomide 14 mg tablet 14 mg PO QPM 05/13/22 02/19/25 History (Aubagio) doxycycline hyclate 50 mg capsule 50 mg PO Q2D Rosacea 08/10/22 02/19/25 History melatonin 3 mg tablet 3 mg PO HS 03/05/23 02/19/25 History multivitamin 1 tab PO DAILY 03/05/23 02/19/25 History Baclofen Pump 0 mg SC DIRECTED 08/05/23 02/19/25 History apixaban 5 mg tablet (Eliquis) 5 mg PO BID 02/03/24 02/19/25 History atorvastatin 40 mg tablet 40 mg PO QAM 09/13/24 02/19/25 History duloxetine 30 mg capsule,delayed 60 mg PO DAILY 09/13/24 02/19/25 History release metoprolol succinate 25 mg 25 mg PO BID 10/01/24 02/19/25 History tablet,extended release 24 hr tizanidine 4 mg tablet (Zanaflex) 4 mg PO Q6H Muscle Spasm 10/01/24 02/19/25 History ferrous sulfate 325 mg (65 mg 325 mg PO QAM 30 days #30 tabs 10/26/24 02/19/25 Rx iron) tablet,delayed release Patient History Medical History Osteoarthritis of right knee Cellulitis of right lower extremity Anemia Cellulitis Acute leg pain Fever History of recent hospitalization 09/2022 [facility] - sepsis History of blood transfusion Limb alert care status left arm Osteoarthritis of right shoulder History of GI bleed Upper GIB (2019) felt 2/2 NSAID use History of non-ST elevation myocardial infarction (NSTEMI) 06/2021 (had heart cath, no stents) Hx of gastric ulcer 02/2021 Anemia Hypertension controlled, stable per pt Surgical History History of removal of Port-a-Cath (02/09/24) Mediport Removal(Right) - Tristin Lazo, DO Port-A-Cath in place (09/29/23) A-Port Insertion, right internal jugular(Right) - Tristin Lazo, S/p reverse total shoulder arthroplasty right: 05/25/22 LMA#4. No postop issues per anesthesia progress note. History of cardiac cath Cardiac cath (07/06/21; [facility]) > Right dominant coronary system. No evidence of aortic stenosis. Normal left ventricular filling pressures. Nonobstructive disease involving the ostial LAD. No evidence of acute coronary syndrome. Approximately 50% ostial stenosis of the LAD. There was some very mild disease at the ostium of the left circumflex. Recommendations: Medical management. History of esophagogastroduodenoscopy (EGD) History of colonoscopy History of tooth extraction Family History Mother Heart disorder Other No family history of adverse response to anesthesia Social History Smoking Status: Never smoker Tobacco Type: Cigarettes packs per day: 1; Cigarettes Per Day: stopped in 1977; Second Hand Exposure: No; Do You Dip or Chew Tobacco: No; Hx Alcohol Use: No Hx Substance Use: No Preferred Language: Cuban Communication Ability: Effective Visual Impairment: No Limitations Hearing Ability: Use of Hearing Aid Cushion Maker Required: No Beliefs That Will Affect Care: None marital status: / Current Living Situation: Alone Current Living Situation Comment: daughters are an hour away but check on her frequently per pt current occupational status: retired How many Children do You have: 3 Other Information That Helps Us Care for You: No Feels Safe at Home: Yes Safety Concerns: Feels Safe At This Time Childhood Exposure to Second-Hand Smoke: Yes Diet: regular caffeine: Yes Assistive Devices: Glasses, Hearing Aid - Bilateral, Walker and Wheelchair Assistive Devices Comment: only has left hearing aid with her at this time Review of Systems Constitutional: + fatigue Respiratory: + dyspnea on exertion Gastrointestinal: no abdominal pain, no nausea, no coffee ground emesis, no hematemesis, no blood in stools and no melena Physical Exam Constitutional: well developed Respiratory: normal respiratory effort Cardiovascular: Rate/Rhythm: regular rate Gastrointestinal (Abdomen): normal bowel sounds, soft, nontender, no hepatosplenomegaly Psychiatric: Orientation: alert and oriented x 3 Results & Data Vital Signs (Past 12 Hours) Vital Signs Temp Pulse Pulse Resp BP BP Pulse Ox 02/20/25 07:38 98 H 02/20/25 07:31 36.7 C 97 H 20 128/80 95 02/20/25 03:19 36.7 C 91 H 16 118/81 95 02/20/25 02:05 92 H 148/89 H 02/20/25 00:46 36.7 C 102 H 18 143/84 H 94 02/19/25 23:00 37.0 C 84 18 123/77 96 02/19/25 22:03 102 H O2 Del Method 02/20/25 07:38 02/20/25 07:31 Room Air 02/20/25 03:19 Room Air 02/20/25 02:05 02/20/25 00:46 Room Air 02/19/25 23:00 Room Air 02/19/25 22:03 PG Care Time/CCT Total # of Minutes Spent Total Time Spent with Patient: Total time spent is greater than 50% in coordination of care (as documented) at patient's floor/unit and/or counseling patient: Coding Level of Care Code 33827 INT INP/OBS CARE 3/75MIN
--- NOTE | 2025-02-20 12:53 | Communication Note ---
Date of Service: February 20, 2025 Please note, patient will be arranged for EGD tomorrow afternoon. She may have clear liquids from Midnight to 9 AM on 02/21/25. She must be strictly NPO at 9 AM.
--- NOTE | 2025-02-20 14:39 | Hospitalist Progress Note ---
Date of Service February 20, 2025 Assessment & Plan (1) Generalized weakness: (2) PSVT (paroxysmal supraventricular tachycardia): (3) Ambulatory dysfunction: (4) Multiple sclerosis: Plan This is a 73-year-old female with PMH HTN, CAD, history NSTEMI, paroxysmal atrial fibrillation, history of PE, DVT, chronic anticoagulation on Eliquis, MS, neurogenic bladder requiring self catheterization, chronic anemia, rosacea, chronic osteomyelitis right lower extremity, history of breast cancer, and others listed below presented to ER with complaint of weakness. Symptomatic anemia Generalized Weakness Ground level fall Patient presented with generalized weakness and fatigue along with ground-level fall. Hemoglobin down trended from baseline of 9 to 7 Patient is on Eliquis for given history of A-fib Denies dark stool Iron studies suggestive of iron deficiency anemia GI consulted for endoscopy; plan for EGD tomorrow Continue on Protonix twice daily Hold Eliquis for now PSVT Atrial Fibrillation CAD In the ED, patient had a run of SVT lasting less than 6 sec, pt asymptomatic Increase metoprolol to 37.5mg bid and monitor on tele for additional events Last echo revealed EF 70%, grade 1 diastolic dysfunction, mild LVH Hold Eliquis for now HTN- conitnue home meds Recurrent UTI pt with recent tx of UTI as outpt, 2 separate cultures, 02/02 from [place] > 100k Kleb and 02/13 from [facility] 10-100k Kleb she was treated with a sufficient course of oral Keflex, also received dose of Ceftriaxone in ED she continues to feel urgency and c/o yeast - will give diflucan x 1 now Urine analysis doesn't suggest infection #Primary Progression 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 Andrea Walker at [facility] Neurology, [facility]. 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 Has seen [facility] for pump checks previously. Due for refill #DVT ppx: Eliquis on hold FULL CODE PCP: Simi Hernandez Dispo: admit to med tele, PT/OT consults Time spent evaluating patient, direct bedside care, chart review, placing or ders, interpretation of diagnostic studies, discussion with consultants, patient, and family members, as well as other required patient management activities is 50 minutes Please note the above document was generated using voice recognition software. It may contain grammatical, syntax or spelling errors. Any formal questions or concerns about the content, text or information contained within the body of this dictation should be directly addressed to the provider for clarification Admission and Anticipated Discharge Date Admission Date: February 19, 2025 Subjective Patient seen and examined at bedside. She is comfortable; not in distress. She reports generalized weakness and fatigue. No significant events overnight Review of Systems Review of Systems: All systems reviewed & are unremarkable except as noted in Subjective Physical Exam Physical Exam: Constitutional: Alert oriented x 3; not in distress. Respiratory: Bilateral vesicular breath sound. Cardiovascular: RRR, no murmur, no edema Vessels: no JVD or carotid bruit Chest: normal inspection of chest Abdomen: normal bowel sounds, soft, nontender, no hepatosplenomegaly Musculoskeletal: no cyanosis or clubbing, extremities motor strength 5/5 Skin: lower extremity skin changes Neurologic: PERRL, EOMI, accommodation nl, no face palsy, no dysarthria CN's II- XI intact bilaterally and moves all extremities Psychiatric: A+Ox3, euthymic affect Results & Data Results & Data Vital Signs (Past 12 Hours) Vital Signs Temp Pulse Pulse Resp BP BP Pulse Ox 02/20/25 14:10 36.3 C L 98 H 16 136/85 94 02/20/25 13:33 36.4 C L 98 H 16 132/84 96 02/20/25 13:03 36.6 C 101 H 16 140/87 95 02/20/25 12:48 36.4 C L 99 H 16 132/89 94 02/20/25 11:22 36.3 C L 98 H 16 140/91 98 02/20/25 11:07 36.5 C 98 H 16 135/85 98 02/20/25 10:47 36.4 C L 115 H 16 144/88 H 97 02/20/25 07:38 98 H 02/20/25 07:31 36.7 C 97 H 20 128/80 95 02/20/25 03:19 36.7 C 91 H 16 118/81 95 O2 Del Method 02/20/25 14:10 02/20/25 13:33 02/20/25 13:03 02/20/25 12:48 02/20/25 11:22 02/20/25 11:07 02/20/25 10:47 02/20/25 07:38 02/20/25 07:31 Room Air 02/20/25 03:19 Room Air
[2025-02-20 20:39] LABS: Basophils # (auto) 0.02 K/uL (0.00-0.20); Basophils % (auto) 0.2 %; Eosinophils # (auto) 0.01 K/uL (0.00-0.50); Eosinophils % (auto) 0.1 %; Hemoglobin 8.3 g/dl (12.0-16.0); Immature Granulocytes # (auto) 0.06 K/uL (0.01-0.20); Immature Granulocytes % (auto) 0.6 %; Lymphocytes # (auto) 0.53 K/uL (1.20-3.40); Lymphocytes % (auto) 4.9 %; Mean Corpuscular Hemoglobin 26.5 pg (25.0-34.0); Mean Corpuscular Hgb Conc 31.9 g/dL (32.0-36.0); Mean Corpuscular Volume 83.1 fL (80.0-100.0); Mean Platelet Volume 10.3 fL (9.4-12.4); Monocytes % (auto) 5.6 %; Neutrophils # (auto) 9.59 K/uL (1.40-6.50); Neutrophils % (auto) 88.6 %; Platelet Count 352 K/uL (130-400); RDW Coefficient of Variation 17.9 % (11.5-14.5); RDW Standard Deviation 53.4 fL (36.4-46.3); Red Blood Count 3.13 M/uL (4.20-5.40); White Blood Count 10.81 K/ul (4.8-10.8)
[2025-02-21 07:46] LABS: Basophils # (auto) 0.03 K/uL (0.00-0.20); Basophils % (auto) 0.5 %; Eosinophils # (auto) 0.07 K/uL (0.00-0.50); Eosinophils % (auto) 1.2 %; Hemoglobin 7.9 g/dl (12.0-16.0); Immature Granulocytes # (auto) 0.02 K/uL (0.01-0.20); Immature Granulocytes % (auto) 0.4 %; Lymphocytes % (auto) 17.5 %; Mean Corpuscular Hemoglobin 25.4 pg (25.0-34.0); Mean Corpuscular Hgb Conc 30.4 g/dL (32.0-36.0); Mean Corpuscular Volume 83.6 fL (80.0-100.0); Mean Platelet Volume 10.2 fL (9.4-12.4); Monocytes # (auto) 0.75 K/uL (0.11-0.59); Monocytes % (auto) 13.2 %; Neutrophils # (auto) 3.83 K/uL (1.40-6.50); Neutrophils % (auto) 67.2 %; Platelet Count 344 K/uL (130-400); RDW Coefficient of Variation 17.9 % (11.5-14.5); RDW Standard Deviation 54.8 fL (36.4-46.3); Red Blood Count 3.11 M/uL (4.20-5.40)
[2025-02-21 08:45] LABS: Ovalocytes 1+; Polychromasia 1+; Toxic Vacuolation 1+
--- NOTE | 2025-02-21 09:17 | History & Physical Bridge Note ---
Date of Service February 21, 2025 History & Physical Bridge Note I have examined the patient, reviewed the History & Physical and in the interval since the performance of the History & Physical I have noted the following changes of clinical significance: no changes noted. Patient is a 74 yo female with iron deficiency anemia on Eliquis. H/H 7.9/26.0 today. She has been NPO since prior to midnight and will proceed with an EGD today. Supervising Physician Co-Signing Physician Notes Agree with above
--- NOTE | 2025-02-21 09:39 | Communication Note ---
Date of Service: February 21, 2025 I saw the patient this morning as she was under the impression that her weakness and leg pain is caused from the intrathecal Baclofen pump being empty and due for a pump refill. I tried to clarify her situation. She has been on low doses of intrathecal Baclofen for many years. Due to the chronic open wounds/infections, and lack of efficacy the dose was changed to minimal rate July 2023 without any issues. The plan is to discontinue the use of the intrathecal pump. She came in 01/17/25 and the Baclofen was removed from the pump and switched out with normal saline. At minimal rate she is still receiving the intrathecal Baclofen that is leftover in the catheter. At minimal rate, it will take another week before the Baclofen is cleared from the catheter and receiving normal saline. I explained this to the patient and she is understanding that the pump is not empty and she is still receiving the Baclofen intrathecally. The weakness and leg pain is not caused by the intrathecal pump or switching to normal saline. Her daughter Rea has reached out to our office recently with the same concerns as the patient. I asked the patient if she would like to call her daughter and be a part of the conversation but the patient states that she will relay the message instead. Patient is welcome to contact our office with any further questions or concerns.
--- NOTE | 2025-02-21 12:03 | Hospitalist Progress Note ---
Date of Service February 21, 2025 Assessment & Plan (1) Generalized weakness: (2) PSVT (paroxysmal supraventricular tachycardia): (3) Ambulatory dysfunction: (4) Multiple sclerosis: Plan This is a 73-year-old female with PMH HTN, CAD, history NSTEMI, paroxysmal atrial fibrillation, history of PE, DVT, chronic anticoagulation on Eliquis, MS, neurogenic bladder requiring self catheterization, chronic anemia, rosacea, chronic osteomyelitis right lower extremity, history of breast cancer, and others listed below presented to ER with complaint of weakness. Symptomatic anemia Generalized Weakness Ground level fall Patient presented with generalized weakness and fatigue along with ground-level fall. Hemoglobin down trended from baseline of 9 to 7 Patient is on Eliquis for given history of A-fib Denies dark stool Iron studies suggestive of iron deficiency anemia Status post 1 unit of packed RBC transfusion on 02/20 Plan for EGD today Continue Protonix Hold Eliquis for now Continue PT OT PSVT Atrial Fibrillation CAD In the ED, patient had a run of SVT lasting less than 6 sec, pt asymptomatic Increase metoprolol to 37.5mg bid and monitor on tele for additional events Last echo revealed EF 70%, grade 1 diastolic dysfunction, mild LVH Hold Eliquis for now HTN- conitnue home meds Recurrent UTI pt with recent tx of UTI as outpt, 2 separate cultures, 02/02 from [place] > 100k Kleb and 02/13 from [facility] 10-100k Kleb she was treated with a sufficient course of oral Keflex, also received dose of Ceftriaxone in ED Urine analysis doesn't suggest infection #Primary Progression 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 Andrea Walker at [facility], [facility]. Patient is on chronic prednisone therapy in addition to Aubagio daily #Chronic Back Pain: Patient with an indwelling intrathecal Baclofen pump in place WE[employer] TI[employer] CORD. Has seen [place] [facility] for pump checks previously. #DVT ppx: Eliquis on hold FULL CODE PCP: Simi Hernandez Dispo: admit to med tele, PT/OT consults Time spent evaluating patient, direct bedside care, chart review, placing orders, interpretation of diagnostic studies, discussion with consultants, patient, and family members, as well as other required patient management activities is 50 minutes Please note the above document was generated using voice recognition software. It may contain grammatical, syntax or spelling errors. Any formal questions or concerns about the content, text or information contained within the body of this dictation should be directly addressed to the provider for clarification Admission and Anticipated Discharge Date Admission Date: February 21, 2025 Subjective Patient seen and examined at bedside. Comfortable; not in distress. Denies fever, chills, chest pain, shortness of breath, abdominal pain or urinary symptoms. No significant overnight events Review of Systems Review of Systems: All systems reviewed & are unremarkable except as noted in Subjective Physical Exam Physical Exam: Constitutional: Alert oriented x 3; not in distress. Respiratory: Bilateral vesicular breath sound. Cardiovascular: RRR, no murmur, no edema Vessels: no JVD or carotid bruit Chest: normal inspection of chest Abdomen: normal bowel sounds, soft, nontender, no hepatosplenomegaly Musculoskeletal: no cyanosis or clubbing, extremities motor strength 5/5 Skin: lower extremity skin changes Neurologic: PERRL, EOMI, accommodation nl, no face palsy, no dysarthria CN's II- XI intact bilaterally and moves all extremities Psychiatric: A+Ox3, euthymic affect Results & Data Results & Data Vital Signs (Past 12 Hours) Vital Signs Temp Pulse Pulse Resp BP Pulse Ox O2 Del Method 02/21/25 11:28 37.0 C 84 18 145/83 H 98 Room Air 02/21/25 07:55 37.1 C 85 18 104/71 95 Room Air 02/21/25 07:33 83 02/21/25 03:00 36.5 C 82 16 110/70 95 Room Air
--- NOTE | 2025-02-21 14:40 | Anesthesiology Consultation ---
Date of Service February 21, 2025 Assessment & Plan Consults Requested medical & cardiac Pulmonary History Surgery Operation Date: 02/21/25 16:30 Proposed Procedures p Esophagogastroduodenoscopy Dr. Dmitri Rizvi MD Height/Weight Height: 5 ft 4 in Weight: 62.4 kg Allergies Allergy/AdvReac Type Severity Reaction Status Date / Time No Known Allergies Allergy Verified 02/05/25 11:22 Medications Home Medications Medication Instructions Recorded Confirmed Last Taken cholecalciferol (vitamin D3) 25 2,000 units PO QAM 09/18/18 02/19/25 10/14/24 mcg (1,000 unit) capsule oxybutynin chloride 15 mg 15 mg PO QAM 09/18/18 02/19/25 10/14/24 tablet,extended release 24 hr prednisone 10 mg tablet 10 mg PO QAM 09/18/18 02/19/25 10/14/24 teriflunomide 14 mg tablet 14 mg PO QPM 05/13/22 02/19/25 04/14/24 (Aubagio) doxycycline hyclate 50 mg capsule 50 mg PO Q2D Rosacea 08/10/22 02/19/25 09/11/24 melatonin 3 mg tablet 3 mg PO HS 03/05/23 02/19/25 04/13/24 multivitamin 1 tab PO DAILY 03/05/23 02/19/25 04/14/24 Baclofen Pump 0 mg SC DIRECTED 08/05/23 02/19/25 02/02/24 apixaban 5 mg tablet (Eliquis) 5 mg PO BID 02/03/24 02/19/25 10/14/24 atorvastatin 40 mg tablet 40 mg PO QAM 09/13/24 02/19/25 10/14/24 duloxetine 30 mg capsule,delayed 60 mg PO DAILY 09/13/24 02/19/25 Unknown release metoprolol succinate 25 mg 25 mg PO BID 10/01/24 02/19/25 10/14/24 tablet,extended release 24 hr tizanidine 4 mg tablet (Zanaflex) 4 mg PO Q6H Muscle Spasm 10/01/24 02/19/25 10/14/24 ferrous sulfate 325 mg (65 mg 325 mg PO QAM 30 days #30 tabs 11/29/24 03/25/25 Unknown iron) tablet,delayed release Active Medications Generic Name Dose Route Start Last Admin Trade Name Vega PRN Reason Stop Dose Admin Apixaban 5 mg 02/19/25 21:00 02/19/25 21:04 Apixaban 5 Mg Tablet PO 03/21/25 20:59 5 mg BID MICHELLE Administration Atorvastatin Calcium 40 mg 02/20/25 09:00 02/21/25 08:52 Atorvastatin 40 Mg Tab PO 03/22/25 08:59 40 mg QAM MICHELLE Administration Diclofenac Sodium 4 gm 02/19/25 21:00 02/21/25 12:06 Diclofenac Sod 1% Gel 100 Gm Tube EXT 03/21/25 20:59 4 gm QID MICHELLE Administration Protocol Duloxetine HCl 60 mg 02/20/25 09:00 02/21/25 08:52 Duloxetine Hcl 60 Mg Cap PO 03/22/25 08:59 60 mg DAILY MICHELLE Administration Pantoprazole Sodium 40 mg in 10 mls @ 5 mls/min 02/20/25 09:00 02/21/25 08:51 Protonix IV 03/22/25 08:59 5 mls/min BID MICHELLE Administration Melatonin 3 mg 02/19/25 21:00 02/20/25 20:49 Melatonin 3 Mg Tab PO 03/21/25 20:59 3 mg HS MICHELLE Administration Metoprolol Succinate 37.5 mg 02/19/25 21:00 02/21/25 08:52 Metoprolol Succ 25mg Ext Rel Tab PO 03/21/25 20:59 37.5 mg BID MICHELLE Administration Miscellaneous 1 each 02/20/25 19:30 02/21/25 08:54 Aubagio: Order Awaiting Action N/A 03/22/25 19:29 Not Given QS MICHELLE Multivitamins 1 tab 02/20/25 09:00 02/21/25 08:53 Multivitamin Tab PO 03/22/25 08:59 1 tab QAM MICHELLE Administration Oxybutynin Chloride 15 mg 02/20/25 09:00 02/21/25 08:52 Oxybutynin Chloride Xl 5 Mg Tabcr PO 03/22/25 08:59 15 mg QAM MICHELLE Administration Prednisone 10 mg 02/20/25 09:00 02/21/25 08:53 Prednisone 10 Mg Tablet PO 03/22/25 08:59 10 mg QAM MICHELLE Administration Tizanidine HCl 4 mg 02/20/25 00:00 02/21/25 12:06 Tizanidine Hcl 4 Mg Tablet PO 03/22/25 00:00 4 mg Q6 MICHELLE Administration Vitamin D 50 mcg 02/20/25 09:00 02/21/25 08:51 Cholecalciferol 25 Mcg (1000 Units) Tab PO 03/22/25 08:59 50 mcg QAM MICHELLE Administration Past Medical History Medical History Osteoarthritis of right knee Cellulitis of right lower extremity Anemia Cellulitis Acute leg pain Fever History of recent hospitalization 09/2022 [facility] - sepsis History of blood transfusion Limb alert care status left arm Osteoarthritis of right shoulder History of GI bleed Upper GIB (2019) felt 2/2 NSAID use History of non-ST elevation myocardial infarction (NSTEMI) 06/2021 (had heart cath, no stents) Hx of gastric ulcer 02/2021 Anemia Hypertension controlled, stable per pt Past Family History Family History Mother Heart disorder Other No family history of adverse response to anesthesia Past Surgical History Surgical History History of removal of Port-a-Cath (02/09/24) Mediport Removal(Right) - Tristin Lazo DO Port-A-Cath in place (09/29/23) A-Port Insertion, right internal jugular(Right) - Tristin Lzao DO S/p reverse total shoulder arthroplasty right: 05/25/22 LMA#4. No postop issues per anesthesia progress note. History of cardiac cath Cardiac cath (07/06/21; [facility]) > Right dominant coronary system. No evidence of aortic stenosis. Normal left ventricular filling pressures. Nonobstructive disease involving the ostial LAD. No evidence of acute coronary syndrome. Approximately 50% ostial stenosis of the LAD. There was some very mild disease at the ostium of the left circumflex. Recommendations: Medical management. History of esophagogastroduodenoscopy (EGD) History of colonoscopy History of tooth extraction Social History Smoking Status: Never smoker tobacco type: cigarettes Smoking cigarettes per day: stopped in 1977 Do You Dip or Chew Tobacco: No Hx Alcohol Use: No Alcohol type: wine alcohol intake frequency: holidays/special occasions only Hx Substance Use: No substance use type: does not use Physical Exam Vital Signs Last Vital Signs Temp 37.0 C 02/21/25 11:28 Pulse 91 H 02/21/25 13:59 Resp 18 02/21/25 11:28 BP 145/83 H 02/21/25 11:28 Pulse Ox 98 02/21/25 11:28 O2 Del Method Room Air 02/21/25 11:28 Testing Laboratory Results 02/21/25 06:53 02/20/25 06:24 Urine Color Yellow 02/19/25 14:37 Urine Appearance Clear (Clear) 02/19/25 14:37 Urine pH 7.0 (4.5-7.5) 02/19/25 14:37 Ur Specific [place] 1.017 (1.000-1.030) 02/19/25 14:37 Urine Protein Trace (Negative) H 02/19/25 14:37 Urine Glucose (UA) Negative (Negative) 02/19/25 14:37 Urine Ketones Negative (Negative) 02/19/25 14:37 Urine Nitrite Negative (Negative) 02/19/25 14:37 Ur Leukocyte Esterase Trace (Negative) H 02/19/25 14:37 Urine WBC (Auto) 6-10 /hpf (0-5) H 02/19/25 14:37 Urine RBC (Auto) 3-5 /hpf (0-2) H 02/19/25 14:37 U Hyaline Cast (Auto) 0-2 /lpf (0-2) 02/19/25 14:37 U Epithel Cells (Auto) 0-2 /hpf (0-2) 02/19/25 14:37 Urine Bacteria (Auto) None Seen (None Seen) 02/19/25 14:37 Blood Type A Positive 02/20/25 08:04 Antibody Screen NEGATIVE 02/20/25 08:04 02/19/25 14:37 Urine Culture - Final Urine,Clean Catch No growth - less than 1,000 colonies/mL. 02/19/25 15:29 Aerobic Blood Culture - Preliminary Blood No growth in Aerobic bottle after 24 hours. Anaerobic Blood Culture - Preliminary No growth in Anaerobic bottle after 24 hours. 02/19/25 15:29 Aerobic Blood Culture - Preliminary Blood No growth in Aerobic bottle after 24 hours. Anaerobic Blood Culture - Preliminary No growth in Anaerobic bottle after 24 hours.
--- NOTE | 2025-02-21 15:37 | Communication Note ---
Date of Service: February 21, 2025 EGD Large scar with granulation inflammatory tissue in the antrum consistent with healed gastric ulcer fairly recent. 2 other gastric ulcerations small but cratered. No visible vessels. Duodenum normal. She has a large hiatal hernia which also could be the source for iron deficiency. At this point will need to confirm with patient that she is not taking any NSAIDs. However she is using prednisone 10 mg/day which can be ulcerogenic. On her home meds I do not see that she is on a PPI. I will place her on long-term Protonix 40 mg. Await biopsies of the gastric ulceration. Patient will need oral and I recommend IV iron to replete iron stores. Can be discharged from a GI perspective.
--- NOTE | 2025-02-21 15:42 | GI REPORT ---
[facility] Patient: NADEEN ANNE : 1950 Sex at : Female Age: 74 Years Procedure: Upper GI endoscopy Date: 02/21/2025 Attending Physician: Bandar Rizvi MD Referring MD: Referred Self Indications: - Suspected upper gastrointestinal bleeding Medications: - Monitored Anesthesia Care Complications: - No immediate complications. Estimated Blood Loss: - Estimated blood loss was minimal. Procedure: - The egd scope was introduced through the mouth and advanced to the third part of the duodenum. - The upper GI endoscopy was accomplished without difficulty. - The patient tolerated the procedure well. Findings: - A large hiatal hernia was present. - Two non-bleeding cratered gastric ulcers with no stigmata of bleeding were found in the gastric antrum. The largest lesion was 3 mm in largest dimension. Biopsies were taken with a cold forceps for histology. Estimated blood loss was minimal. - 3 to 4 cm healed gastric ulcer. The tissue overlying this however he is still inflammatory in appearance and granular consistent with fairly recent ulceration. Biopsies for histology. - The examined duodenum was normal. Impression: - Large hiatal hernia. - Non-bleeding gastric ulcers with no stigmata of bleeding. Biopsied. - 3 to 4 cm healed gastric ulcer. The tissue overlying this however he is still inflammatory in appearance and granular consistent with fairly recent ulceration. Biopsies for histology. - Normal examined duodenum. Recommendation: - Await pathology results. - Long-term PPI therapy. Protonix 40 mg/day - Minimize any aspirin or NSAID use. Can take acetaminophen up to 4 tablets/day - Can resume blood thinners if required Procedure Code(s): - 94819, Esophagogastroduodenoscopy, flexible, transoral; with biopsy, single or multiple Diagnosis Code(s): - K44.9, Diaphragmatic hernia without obstruction or gangrene - K25.9, Gastric ulcer, unspecified as acute or chronic, without hemorrhage or perforation CPT(R) - 2023 copyright [employer]. All Rights Reserved. The CPT codes, CCI edits and ICD codes generated are intended as suggestions and were generated based on input data. These codes are preliminary and upon cable puller review may be revised to meet current compliance and payer requirements. The provider is responsible for the final determination of appropriate codes, and modifiers. Bandar Rizvi MD This document has been electronically signed. Note Initiated:02/21/2025 Note Completed:02/21/2025 3:41 PM [email or web address]\[id number]
--- NOTE | 2025-02-21 18:38 | Anesthesiology Progress Note ---
Date of Service February 21, 2025 Anesthesia Post Procedure Vital Signs Vital Signs: Temp Pulse Pulse Resp BP Pulse Ox O2 Del Method 02/21/25 16:14 82 18 126/79 96 Room Air 02/21/25 15:51 82 18 116/71 94 Room Air 02/21/25 15:36 84 18 97/61 L 100 Room Air 02/21/25 14:52 36.5 C 84 18 138/81 95 Room Air 02/21/25 13:59 91 H 02/21/25 11:28 37.0 C 84 18 145/83 H 98 Room Air 02/21/25 07:55 37.1 C 85 18 104/71 95 Room Air 02/21/25 07:33 83 02/21/25 03:00 36.5 C 82 16 110/70 95 Room Air 02/20/25 23:02 36.7 C 85 18 115/72 95 Room Air 02/20/25 21:56 92 H 02/20/25 19:00 36.9 C 96 H 20 111/70 97 Room Air Transfer of Care Handoff Completed per policy Notes Mental Status: alert / awake / arousable and participated in evaluation Patient Amnestic to Procedure: Yes Nausea / Vomiting: adequately controlled Pain: adequately controlled Airway Patency, RR, SpO2: stable & adequate BP & HR: stable & adequate Hydration State: stable & adequate Anesthetic Complications: no major complications apparent and Pt Satisfied with anesthetic care
[2025-02-21] MEDS: LIDOCAINE 2% 2 ML VIAL/AMP(20MG/ML) INFIL ONE ×2 (18:57→18:58)
[2025-02-21] MEDS: PROPOFOL IV EMULSION 10 MG/ML 20 ML VIAL IV ONE ×2 (18:57)
[2025-02-21] MEDS: TERIFLUNOMIDE 14 MG TAB PO SCH (20:03)
[2025-02-22 06:20] LABS: Basophils # (auto) 0.04 K/uL (0.00-0.20); Basophils % (auto) 0.8 %; Eosinophils # (auto) 0.07 K/uL (0.00-0.50); Eosinophils % (auto) 1.4 %; Hematocrit (blood only) 26.5 % (37.0-47.0); Hemoglobin 8.3 g/dl (12.0-16.0); Immature Granulocytes # (auto) 0.02 K/uL (0.01-0.20); Immature Granulocytes % (auto) 0.4 %; Lymphocytes # (auto) 0.96 K/uL (1.20-3.40); Lymphocytes % (auto) 19.6 %; Mean Corpuscular Hemoglobin 26.1 pg (25.0-34.0); Mean Corpuscular Hgb Conc 31.3 g/dL (32.0-36.0); Mean Corpuscular Volume 83.3 fL (80.0-100.0); Mean Platelet Volume 9.4 fL (9.4-12.4); Monocytes # (auto) 0.59 K/uL (0.11-0.59); Neutrophils # (auto) 3.22 K/uL (1.40-6.50); Neutrophils % (auto) 65.8 %; Platelet Count 340 K/uL (130-400); RDW Standard Deviation 54.8 fL (36.4-46.3); Red Blood Count 3.18 M/uL (4.20-5.40)
[2025-02-22 06:32] LABS: BUN Creatinine Ratio 27.5 (10-20); Calcium 8.5 mg/dl (8.6-10.3); Creatinine Clr Calc Pharmacy 54.9 ml/min; Potassium 4.1 mmol/L (3.5-5.1)
[2025-02-22] MEDS: IRON SUCROSE 300 MG in SODIUM CHLORIDE 0.9% 250 ML IV ONE (09:09)
--- NOTE | 2025-02-22 10:23 | Gastroenterology Progress Note ---
Date of Service February 22, 2025 Assessment & Plan (1) Gastric ulcer: Plan: -Would advise continuation of PPI long-term given her repeated history of gastric ulcers and her known iron deficiency anemia. She should continue her supplemental iron and follow-up with her PCP as an outpatient for ongoing management of iron deficiency. Admission and Anticipated Discharge Date Admission Date: February 21, 2025 Supervising Physician Co-Signing Physician Notes Agree with above. Long-term PPI. Iron supplementation. Subjective Patient is a 74 yo female with iron deficiency. EGD on 02/21/25 indicated non- bleeding gastric ulcerations. She has a history of gastric ulcer in 2019 as well. She notes she takes an OTC antacid at home. Review of Systems Gastrointestinal: no abdominal pain, no hematemesis, no blood in stools and no melena Physical Exam Gastrointestinal (Abdomen): normal bowel sounds, soft, nontender, no hepatosplenomegaly Results & Data Results & Data Vital Signs (Past 12 Hours) Vital Signs Temp Pulse Pulse Pulse Resp BP Pulse Ox 02/22/25 07:22 36.7 C 77 18 128/82 96 02/22/25 07:19 75 02/22/25 03:57 36.5 C 77 18 99/57 L 97 02/21/25 23:26 36.3 C L 78 20 126/61 100 O2 Del Method 02/22/25 07:22 Room Air 02/22/25 07:19 02/22/25 03:57 Room Air 02/21/25 23:26 Room Air PG Care Time/CCT Total # of Minutes Spent Total Time Spent with Patient: Total time spent is greater than 50% in coordination of care (as documented) at patient's floor/unit and/or counseling patient: Coding Level of Care Code 21618 SUB INP/OBS CARE 2/35MIN Diagnoses Gastric ulcer K25.9
--- NOTE | 2025-02-22 14:19 | Hospitalist Progress Note ---
Date of Service February 22, 2025 Assessment & Plan (1) Generalized weakness: (2) PSVT (paroxysmal supraventricular tachycardia): (3) Ambulatory dysfunction: (4) Multiple sclerosis: Plan This is a 73-year-old female with PMH HTN, CAD, history NSTEMI, paroxysmal atrial fibrillation, history of PE, DVT, chronic anticoagulation on Eliquis, MS, neurogenic bladder requiring self catheterization, chronic anemia, rosacea, chronic osteomyelitis right lower extremity, history of breast cancer, and others listed below presented to ER with complaint of weakness. Symptomatic anemia Generalized Weakness Ground level fall Patient presented with generalized weakness and fatigue along with ground-level fall. Hemoglobin down trended from baseline of 9 to 7 Patient is on Eliquis for given history of A-fib Denies dark stool Iron studies suggestive of iron deficiency anemia Status post 1 unit of packed RBC transfusion on 02/20 EGD showed nonbleeding gastric ulcer with no stigmata of bleeding; 3 to 4 cm healed gastric ulcer. Biopsy pending GI recommends long-term Protonix once a day Given IV iron 300 mg on 02/22 Continue Eliquis; monitor CBC daily Possible DC in a.m. 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 Andrea Walker at [facility], [facility]. Patient is on chronic prednisone therapy in addition to Aubagio daily #Chronic Back Pain: Patient with an indwelling intrathecal Baclofen pump in place PACKAGE PICK UP. Has seen [place] [facility] for pump checks previously. #DVT ppx: Eliquis FULL CODE PCP: Simi Hernandez Dispo: admit to med tele, PT/OT consults Time spent evaluating patient, direct bedside care, chart review, placing orders, interpretation of diagnostic studies, discussion with consultants, patient, and family members, as well as other required patient management activities is 50 minutes Please note the above document was generated using voice recognition software. It may contain grammatical, syntax or spelling errors. Any formal questions or concerns about the content, text or information contained within the body of this dictation should be directly addressed to the provider for clarification Admission and Anticipated Discharge Date Admission Date: February 21, 2025 Subjective Patient seen and examined at bedside. She is comfortable lying in the bed; not in distress Review of Systems Review of Systems: All systems reviewed & are unremarkable except as noted in Subjective Physical Exam Physical Exam: Constitutional: Alert oriented x 3; not in distress. Respiratory: Bilateral vesicular breath sound. Cardiovascular: RRR, no murmur, no edema Vessels: no JVD or carotid bruit Chest: normal inspection of chest Abdomen: normal bowel sounds, soft, nontender, no hepatosplenomegaly Musculoskeletal: no cyanosis or clubbing, extremities motor strength 5/5 Skin: lower extremity skin changes Neurologic: PERRL, EOMI, accommodation nl, no face palsy, no dysarthria CN's II- XI intact bilaterally and moves all extremities Psychiatric: A+Ox3, euthymic affect Results & Data Results & Data Vital Signs (Past 12 Hours) Vital Signs Temp Pulse Pulse Pulse Resp BP Pulse Ox 02/22/25 14:07 84 02/22/25 11:38 36.6 C 85 16 146/82 H 95 02/22/25 07:22 36.7 C 77 18 128/82 96 02/22/25 07:19 75 02/22/25 03:57 36.5 C 77 18 99/57 L 97 O2 Del Method 02/22/25 14:07 02/22/25 11:38 Room Air 02/22/25 07:22 Room Air 02/22/25 07:19 02/22/25 03:57 Room Air
[2025-02-23 06:23] LABS: Basophils # (auto) 0.04 K/uL (0.00-0.20); Eosinophils # (auto) 0.06 K/uL (0.00-0.50); Eosinophils % (auto) 1.5 %; Hematocrit (blood only) 26.3 % (37.0-47.0); Hemoglobin 8.2 g/dl (12.0-16.0); Immature Granulocytes # (auto) 0.01 K/uL (0.01-0.20); Immature Granulocytes % (auto) 0.2 %; Lymphocytes # (auto) 0.86 K/uL (1.20-3.40); Lymphocytes % (auto) 20.9 %; Mean Corpuscular Hemoglobin 26.3 pg (25.0-34.0); Mean Corpuscular Hgb Conc 31.2 g/dL (32.0-36.0); Mean Corpuscular Volume 84.3 fL (80.0-100.0); Mean Platelet Volume 9.3 fL (9.4-12.4); Monocytes # (auto) 0.51 K/uL (0.11-0.59); Monocytes % (auto) 12.4 %; Neutrophils # (auto) 2.63 K/uL (1.40-6.50); Platelet Count 340 K/uL (130-400); RDW Coefficient of Variation 18.1 % (11.5-14.5); Red Blood Count 3.12 M/uL (4.20-5.40); White Blood Count 4.11 K/ul (4.8-10.8)
[2025-02-23 07:52] VITALS: RESP 18; O2SAT 97
--- NOTE | 2025-02-23 08:45 | Discharge Summary ---
Date of Service February 23, 2025 Admission HPI Per Admitting Provider This is a 73-year-old female with PMH HTN, CAD, history NSTEMI, paroxysmal atrial fibrillation, history of PE, DVT, chronic anticoagulation on Eliquis, MS, neurogenic bladder requiring self catheterization, chronic anemia, rosacea, chronic osteomyelitis right lower extremity, history of breast cancer, and others listed below presented to ER with complaint of weakness and concern for possible ongoing UTI. Pt reports being in the ED on 02/02 and dx with a UTI. She was initially started on bactrim and asked to switch it to keflex. SHe states she started the keflex and got diarrhea so she stopped it. She saw her PCP and had another urine culture at her PCP and was started on a 10 day course of keflex on 02/14. She reports taking this medication for several days. She now feels she has a yeast infection. She states she has been having more pain to her Left hip and that has caused her to not be as mobile. At baseline she uses a wheel chair and can self transfer, but lately she has been more dependent on her wheelchair. She reports over the last 3 days not moving around much. When she was in the shower today she went to grab the bar to get out and she felt so weak that she lowered herself to the ground. She recalls all events and did not hit her head. She denies any syncope. She felt feverish last night, but did not take her temperature. She complained of chills. She denies CP, sob, palpitations, n/v/d or abd pain. She denies dysuria, hematuria, melena or hematochezia. She has chronic urinary urgency/frequency. This has been persistent since the beginning of january. In ED Pt was hypertensive and tachycardic. Her lab work was notable for a mild leukocytosis, hgb 7.7, and urine negative for infection. Her hip/pevis xr was. Her head ct was negative for any acute abnormality. She was given 2g ceftriaxone in ED. Pt reports receiving chronic wound care to [facility] from previous infection. She goes to [facility] once weekly for tubigrib wraps. She denies increased in redness/warmth or drainage. Admission Exam Per Admitting Provider Constitutional: Alert oriented x 3; not in distress. Respiratory: Bilateral vesicular breath sound. Cardiovascular: RRR, no murmur, no edema Vessels: no JVD or carotid bruit Chest: normal inspection of chest Abdomen: normal bowel sounds, soft, nontender, no hepatosplenomegaly Musculoskeletal: no cyanosis or clubbing, extremities motor strength 5/5 Skin: lower extremity skin changes Neurologic: PERRL, EOMI, accommodation nl, no face palsy, no dysarthria CN's II- XI intact bilaterally and moves all extremities Psychiatric: A+Ox3, euthymic affect Principal Diagnosis Symptomatic anemia Generalized Weakness Ground level fall Discharge Exam Constitutional: Alert oriented x 3; not in distress. Respiratory: Bilateral vesicular breath sound. Cardiovascular: RRR, no murmur, no edema Vessels: no JVD or carotid bruit Chest: normal inspection of chest Abdomen: normal bowel sounds, soft, nontender, no hepatosplenomegaly Musculoskeletal: no cyanosis or clubbing, extremities motor strength 5/5 Skin: lower extremity skin changes Neurologic: PERRL, EOMI, accommodation nl, no face palsy, no dysarthria CN's II- XI intact bilaterally and moves all extremities Psychiatric: A+Ox3, euthymic affect Discharge Data Allergies Allergy/AdvReac Type Severity Reaction Status Date / Time No Known Allergies Allergy Verified 02/05/25 11:22 Consultations 02/19/25 16:30 ED Decision to Admit Stat 02/20/25 08:18 Consult Gastroenterology Routine Procedures Performed Operation Date: 02/21/25 16:30 Actual Procedures p EGD Biopsy Cytology - Bandar Rizvi MD Ordered Studies 02/19/25 13:06 CT head/brain wo con Stat Hospital Course (1) Generalized weakness: (2) PSVT (paroxysmal supraventricular tachycardia): (3) Ambulatory dysfunction: (4) Multiple sclerosis: Plan This is a 73-year-old female with PMH HTN, CAD, history NSTEMI, paroxysmal atrial fibrillation, history of PE, DVT, chronic anticoagulation on Eliquis, MS, neurogenic bladder requiring self catheterization, chronic anemia, rosacea, chronic osteomyelitis right lower extremity, history of breast cancer, and others listed below presented to ER with complaint of weakness. Symptomatic anemia Generalized Weakness Ground level fall Patient presented with generalized weakness and fatigue along with ground-level fall. Hemoglobin down trended from baseline of 9 to 7 Patient is on Eliquis for given history of A-fib Denies dark stool Iron studies suggestive of iron deficiency anemia Status post 1 unit of packed RBC transfusion on 02/20 GI was consulted; EGD showed nonbleeding gastric ulcer with no stigmata of bleeding; 3 to 4 cm healed gastric ulcer. Since anticoagulation was resumed and she was monitored for rebleeding. Patient's hemoglobin remained stable. She reported improvement in generalized weakness. She was given iron transfusion of 600 mg during the hospitalization. She was prescribed Protonix at the time of the discharge. Recommended to follow-up with PCP as outpatient. Dose of metoprolol increased to 37.5 bid due to episode of PSVT. Please note the above document was generated using voice recognition software. It may contain grammatical, syntax or spelling errors. Any formal questions or concerns about the content, text or information contained within the body of this dictation should be directly addressed to the provider for clarification Total Time Total Time Spent Total Time Spent (In Minutes): 45 Total Time Includes: Examination of the Patient, Discharge Planning, Medication Reconciliation, Communication With Other Providers and Other Discharge Plan Discharge Items Patient Disposition: Home - Self-Care Reason For Visit: FALL Discharge Diagnosis: Symptomatic anemia Generalized Weakness Ground level fall Activity: Resume your previous activity Non-emergency contact: Primary Care Provider Call non-emergency contact if: you have any medication questions and your symptoms worsen Follow-up/Referrals: Simi Hernandez CRNP [Primary Care Provider] - (Date & Time 02/28/2025 1:40 PM Provider: Dana Moise, [facility] ) Diet: Regular Addtl Attending Provider Instructions: You were admitted to the hospital due to generalized weakness and fall. The likely cause for it is anemia. You underwent endoscopy; you are found to have gastric ulcer. You are prescribed Protonix to be taken twice a day for the next 14 days; then you have to take Protonix once a day then after. 90 tablets has been sent to your pharmacy. Please follow-up with your primary care doctor for refills. You are found to have episode Of elevated heart rate in the emergency department; the metoprolol dose has been increased to 37.5 mg twice daily from 25 mg twice daily. You were given iron infusion during the hospitalization; please continue to take oral iron at home. It may be beneficial for you to have intermittent iron infusion based on your serum iron level and ferritin level. Follow-up with your primary care to discuss it further. Pending Studies at Discharge: No Stand-Alone Forms: My [facility], Smoking Cessation Medications and DC Order Prescriptions: New metoprolol succinate 25 mg Tablet Extended Release 24 Hr 37.5 mg PO BID Qty: 60 0RF pantoprazole [Protonix] 40 mg tablet,delayed release (DR/EC) See Rx Instructions .ROUTE .COMPLEX Qty: 90 0RF Taper: Taper, Blank 40 mg TWICE A DAY for 14 Days 40 mg DAILY for 30 Days Rx Instructions: See Taper orally Continued prednisone 10 mg tablet 10 mg PO QAM oxybutynin chloride 15 mg tablet extended release 24hr 15 mg PO QAM cholecalciferol (vitamin D3) 1,000 unit capsule 2,000 units PO QAM teriflunomide [Aubagio] 14 mg tablet 14 mg PO QPM doxycycline hyclate 50 mg capsule 50 mg PO Q2D Hold Instructions: Resume on 10/31/24. multivitamin Tablet 1 tab PO DAILY melatonin 3 mg Tablet 3 mg PO HS Baclofen Pump 0 mg SC DIRECTED Rx Instructions: continuous. FAMILY UNSURE OF MAX DOSE BUT IT IS A CONTINOUS PUMP. Eliquis 5 mg tablet 5 mg PO BID atorvastatin 40 mg tablet 40 mg PO QAM duloxetine 30 mg capsule,delayed release(DR/EC) 60 mg PO DAILY ferrous sulfate 325 mg (65 mg iron) Tablet,Delayed Release (Dr/Ec) 325 mg PO QAM 30 Days Qty: 30 1RF Changed tizanidine [Zanaflex] 4 mg tablet 4 mg PO Q6H PRN (Reason: Muscle Spasm) Qty: 0 0RF Discontinued metoprolol succinate 25 mg tablet extended release 24 hr 25 mg PO BID Discharge Orders: Discharge Order (Routine); Ordered 02/23/25 Ordered By: Viktor Bee Admission Data Admit Date/Time: 02/21/25 07:26 Attending Provider: Viktor Bee Admit Provider: Robin Childs Primary Care Provider: Simi Hernandez Other Providers: Robin Childs; Bandar Rizvi; [facility] F[facility] Other Interventions: Discharge Summary Assessment (RN) Last Done: 02/21/25 15:45
[2025-02-23] MEDS: IRON SUCROSE 300 MG in SODIUM CHLORIDE 0.9% 250 ML IV ONE (08:52)
[2025-02-23 11:32] VITALS: BP 118/75; TEMP 97.3
[2025-02-23 11:42] VITALS: PULSE 97
== END 2025-02-23 14:21 | disposition home health service (06) | DRG 384 ==
LOC: 2N 11:58 → ED 11:58 → SUATTDRO 16:30 → 2N 17:58

== ENCOUNTER 2025-09-15 12:04 | Inpatient (IN) ==
--- NOTE | 2025-09-15 12:30 | Emergency Department Note ---
Impression & Plan Right leg weakness, Leukocytosis, Anemia, Acute UTI ED Provider Note NAME: NADEEN ANNE AGE: 74 SEX: F : 1950 ARRIVES VIA: Walk-In INFORMANT: Patient ED PROVIDER(S): Sanchez Casarez DO CHIEF COMPLAINT: Right foot weakness and numbness HPI: Patient is a 74-year-old female with a past medical history of confusion, MS, paroxysmal A-fib, DVT who presents to the ER for weakness of the right foot. She is unable to plantar/dorsiflex and this has been present since this past Tuesday when she woke up. She also notes that the foot is numb. She admits to a small wound around her ankle which has been present for the past year and has not healed. She was diagnosed with a UTI on and placed on Keflex which she stopped this as when she woke up her foot was numb and she could not move it. Denies any headache or change in vision. No chest pain or shortness of breath. No other exacerbating or remitting factors. Additional history provided by daughter who is present at bedside that notes that the right foot weakness is all new on Tuesday morning. ADDITIONAL HISTORY OBTAINED: Per HPI Chronic Medical/Social Conditions Affecting Care: Per HPI PAST MEDICAL HISTORY:See Below PAST SURGICAL HISTORY:See Below FAMILY HISTORY:See Below SOCIAL HISTORY:See Below HOME MEDICATIONS:See Below ALLERGIES:See Below VITALS:See Below PHYSICAL EXAMINATION: GENERAL: Sitting up in bed, alert, well appearing, well nourished, no distress, non-toxic EYE EXAM: normal conjunctiva. PERRL and EOM's grossly intact. OROPHARYNX: no exudate, no erythema, lips, buccal mucosa, and tongue normal and mucous membranes are moist NECK: supple, no nuchal rigidity, no adenopathy, non-tender LUNGS: Clear to auscultation. Normal chest wall mechanics HEART: no murmurs, S1 normal and S2 normal ABDOMEN: abdomen soft, non-tender, normo-active bowel sounds, no masses, no rebound or guarding. UPPER EXTREMITIES: upper extremities are grossly normal. LOWER EXTREMITIES: Flexion extension right hip and knee is intact. Unable to plantar or dorsiflex the right foot. Pitting edema bilateral in the lower extremities with purple discoloration of bilateral feet. NEURO EXAM: Normal sensorium, cranial nerves II-XII intact, normal speech, no weakness of arms, unable to plantar or dorsiflex the right foot. [No drift. Finger to nose intact. Gross sensation intact.] MEDICAL DECISION MAKING: Patient is a 74-year-old female who presents to the ER for weakness of her right lower extremity and numbness. This started this past Tuesday. She is not a TNK candidate. She does have a history of MS. IV was established and blood work was obtained. Labs show mild leukocytosis 11,000. Mild anemia 10. BMP low with LFTs bilirubin is unremarkable. Lipase is normal. UA shows leuks and whites with +4 bacteria and 3-[address] angio of the head and neck was negative. Patient was given IV Rocephin following reviewing external culture from [employer]. Patient was discussed with the hospitalist for further evaluation management treatment due to the numbness and weakness in the right lower extremity. Consults/Care Managements Discussions: Per MDM Triage Nursing notes reviewed. Limited review of prior medical records performed Vital Signs: reviewed and remarkable for no significant abnormalities Differential diagnosis: Differential Diagnosis includes but is not limited to ischemic Stroke, hemorrhagic stroke, bells palsy, mass, neoplasm, migraine headache, seizure, subarachnoid hemorrhage, TIA, and transient global amnesia. ER treatment provided: See below Diagnostics interpreted by me include EKG and cardiac monitoring as listed below: -Cardiac Monitoring: An order was placed for continuous cardiac monitoring. The monitor shows a rate of 82 with sinus rhythm. -ECG: none -Laboratory studies:Interpreted by me as stated above in MDM and shown below. Imaging studies: Xrays: As interpreted by me:none CTs show: CT of the head shows no obvious large bleed CT angios of the head neck were negative Procedures:none Critical Care: None Past Med/Surg History Problem List (Updated 03/26/25 @ 00:07 by Background Daemon) Acute UTI (Acute) Anemia (Acute) Leukocytosis (Acute) Right leg weakness (Acute) Asymptomatic bacteriuria Foot drop, right Chronic progressive multiple sclerosis Enterococcus faecalis infection Pseudomonas aeruginosa infection Non-healing wound of left lower extremity Cellulitis of left lower extremity Acute dehydration (Acute) Weakness (Acute) Sepsis Confusion (Acute) Dyslipidemia Peptic ulcer disease Nonrheumatic aortic (valve) stenosis Iron deficiency anemia Weakness (Acute) PSVT (paroxysmal supraventricular tachycardia) Chronic osteomyelitis involving right ankle and foot Leukocytosis (Acute) Paroxysmal atrial fibrillation Rosacea Traumatic open wound of left lower leg (Acute) Cellulitis of left lower leg (Acute) HX: breast cancer Left breast cancer with surgery and chemo/radiation-left arm restriction Chronic anemia Hypertension CAD (coronary artery disease) Non-obstructive per 06/2021 cardiac cath History of pulmonary embolism ~ 6 yrs ago, IVC filter still in place History of DVT (deep vein thrombosis) ~6 yrs ago Multiple sclerosis (Chronic) Follows with Dr. Walker/[facility] Stable Neurogenic bladder (Chronic) Presence of intrathecal pump (Chronic) baclofen pump in place S/P IVC filter (Chronic) H/O left mastectomy (Chronic) with lymph node removal>LEFT ARM RESTRICTION Medical History Adult failure to thrive Ambulatory dysfunction Generalized weakness Immunocompromised due to corticosteroids Non-ST elevation IN (NSTEMI) Hypomagnesemia Elevated lactic acid level Complicated UTI (urinary tract infection) Lower extremity cellulitis Septic shock Shock circulatory Contusion of face Head injury Fall Cellulitis Sepsis Osteoarthritis of knees, bilateral Knee pain Septic prepatellar bursitis Wound infection CLABSI (central line-associated bloodstream infection) Bacteremia Fungemia Myocardial strain Tachycardia Hypomagnesemia Diarrhea Acute deep vein thrombosis of left lower extremity Traumatic open wound of right lower leg Catheter-associated urinary tract infection Leg wound, right Sepsis Skin tear of left upper extremity Chronic refractory osteomyelitis of ankle Surgical wound, non healing Osteomyelitis of ankle Chronic ulcer of right foot Sepsis Paroxysmal atrial fibrillation Lower extremity edema Traumatic open wound of left lower leg with delayed healing Ulcer of right ankle Paroxysmal atrial fibrillation with RVR Hypotension Acute UTI Elevated lactic acid level Hypotension Elevated troponin I level Sepsis Elevated troponin Multiple sclerosis Sepsis Closed right scapular fracture Encounter for pre-operative examination UTI (urinary tract infection) History of supraventricular tachycardia GERD (gastroesophageal reflux disease) controlled, stable per pt Raynaud disease Osteoporosis Breast cancer Left (17 years ago) Gastric ulcer Osteoarthritis of right knee Cellulitis of right lower extremity Anemia Cellulitis Acute leg pain Fever History of recent hospitalization 09/2022 [facility] - sepsis History of blood transfusion Limb alert care status left arm Osteoarthritis of right shoulder History of GI bleed Upper GIB (2019) felt 2/2 NSAID use History of non-ST elevation myocardial infarction (NSTEMI) 06/2021 (had heart cath, no stents) Hx of gastric ulcer 02/2021 Anemia Hypertension controlled, stable per pt Surgical History Status post reverse total replacement of right shoulder (~04/2022) History of appendectomy S/P partial hysterectomy History of open reduction and internal fixation (ORIF) procedure "left hip" History of removal of Port-a-Cath (02/09/24) Mediport Removal(Right) - Tristin Lazo DO Port-A-Cath in place (09/29/23) A-Port Insertion, right internal jugular(Right) - Tristin Lazo DO S/p reverse total shoulder arthroplasty right: 05/25/22 LMA#4. No postop issues per anesthesia progress note. History of cardiac cath Cardiac cath (07/06/21; [facility]) > Right dominant coronary system. No evidence of aortic stenosis. Normal left ventricular filling pressures. Nonobstructive disease involving the ostial LAD. No evidence of acute coronary syndrome. Approximately 50% ostial stenosis of the LAD. There was some very mild disease at the ostium of the left circumflex. Recommendations: Medical management. History of esophagogastroduodenoscopy (EGD) History of colonoscopy History of tooth extraction Family History Mother Heart disorder Other No family history of adverse response to anesthesia Social History Smoking Status: Former smoker Tobacco Type: Cigarettes packs per day: 1; Cigarettes Per Day: stopped in 1977; Second Hand Exposure: No; Do You Dip or Chew Tobacco: No; Hx Alcohol Use: No Hx Substance Use: No Preferred Language: Setswana Communication Ability: Effective Visual Impairment: No Limitations Hearing Ability: Use of Hearing Aid Medical Service Representative Required: No Beliefs That Will Affect Care: None marital status: / Current Living Situation: Alone Current Living Situation Comment: daughters are an hour away but check on her frequently per pt current occupational status: retired How many Children do You have: 3 Feels Safe at Home: Yes Childhood Exposure to Second-Hand Smoke: Yes Diet: regular caffeine: Yes Assistive Devices: Walker and Wheelchair Allergies Allergies Allergy/AdvReac Type Severity Reaction Status Date / Time No Known Allergies Allergy Verified 02/05/25 11:22 Home Meds Home Medications Medication Instructions Recorded Confirmed cholecalciferol (vitamin D3) 25 2,000 units PO QAM 09/18/18 09/15/25 mcg (1,000 unit) capsule oxybutynin chloride 15 mg 15 mg PO QAM 09/18/18 09/15/25 tablet,extended release 24 hr prednisone 10 mg tablet 10 mg PO QAM 09/18/18 09/15/25 teriflunomide 14 mg tablet 14 mg PO QPM 05/13/22 09/15/25 (Aubagio) doxycycline hyclate 50 mg capsule 50 mg PO Q2D Rosacea 08/10/22 09/15/25 melatonin 3 mg tablet 3 mg PO HS 03/05/23 09/15/25 apixaban 5 mg tablet (Eliquis) 5 mg PO BID 02/03/24 09/15/25 atorvastatin 40 mg tablet 40 mg PO QAM 09/13/24 09/15/25 ferrous sulfate 325 mg (65 mg 325 mg PO QAM 03/11/25 09/15/25 iron) tablet,delayed release escitalopram oxalate 10 mg tablet 10 mg PO QAM 09/15/25 09/15/25 pantoprazole 40 mg tablet,delayed 40 mg PO QAM 09/15/25 09/15/25 release Previous Rx's Medication Instructions Recorded metoprolol succinate 25 mg 37.5 mg (1.5 x 25 mg) PO BID #60 02/23/25 tablet,extended release 24 hr tabs tizanidine 4 mg tablet (Zanaflex) 4 mg PO Q6H PRN Muscle Spasm #0 02/23/25 tabs L.acidop,casei,lactis,rham-B.lact,luis miguel 1 cap PO DAILY #30 caps 03/16/25 625 mg (10 billion cell) capsule (Advanced Probiotic) Results & Data (ED) Vital Signs Vital Signs - 24 hr 09/15/25 12:08 09/15/25 12:30 09/15/25 13:22 Temperature 36.4 C L Temperature Source Oral Pulse Rate 94 H Pulse Rate [Right Finger] 82 Pulse Rhythm [Right Finger] Regular Pulse Strength [Right Finger] Normal Respiratory Rate 17 18 18 Respiratory Effort / Characteristics Non-Labored Spontaneous Respiratory Depth Normal Respiratory Pattern Regular Blood Pressure 122/73 Blood Pressure [Right Arm] 141/88 H Blood Pressure Mean 89 Blood Pressure Mean [Right Arm] 105 Blood Pressure Position [Right Arm] Lying Pulse Oximetry 96 99 99 Oxygen Delivery Method Room Air Room Air Room Air Sepsis Recent Fever Within 48 Hours No Sepsis New/Unexplained Change in Mental Status N/A Sepsis Action Taken by Nursing No Action Required 09/15/25 13:31 Temperature Temperature Source Pulse Rate 81 Pulse Rate [Right Finger] Pulse Rhythm [Right Finger] Pulse Strength [Right Finger] Respiratory Rate Respiratory Effort / Characteristics Respiratory Depth Respiratory Pattern Blood Pressure Blood Pressure [Right Arm] Blood Pressure Mean Blood Pressure Mean [Right Arm] Blood Pressure Position [Right Arm] Pulse Oximetry Oxygen Delivery Method Sepsis Recent Fever Within 48 Hours Sepsis New/Unexplained Change in Mental Status Sepsis Action Taken by Nursing Laboratory Data 09/15/25 13:00 09/15/25 13:00 Lab Results 09/15/25 09/15/25 09/15/25 Range/Units 13:00 13:04 14:41 WBC 11.35 H (4.8-10.8) K/ul RBC 3.87 L (4.20-5.40) M/uL Hgb 10.3 L (12.0-16.0) g/dl POC Hgb 12.2 (12.0-16.0) g/dl Hct 35.1 L (37.0-47.0) % POC Hct 36 L (37-47) % MCV 90.7 (80.0-100.0) fL MCH 26.6 (25.0-34.0) pg MCHC 29.3 L (32.0-36.0) g/dL RDW Std Deviation 56.7 H (36.4-46.3) fL RDW Coeff of Tiffanie 17.1 H (11.5-14.5) % Plt Count 344 (130-400) K/uL MPV 10.7 (9.4-12.4) fL Immature Gran % (Auto) 0.2 % Neut % (Auto) 90.7 % Lymph % (Auto) 4.1 % [place] % (Auto) 4.4 % Eos % (Auto) 0.2 % Baso % (Auto) 0.4 % Neut # (Auto) 10.30 H (1.40-6.50) K/uL Lymph # (Auto) 0.46 L (1.20-3.40) K/uL [place] # (Auto) 0.50 (0.11-0.59) K/uL Eos # (Auto) 0.02 (0.00-0.50) K/uL Baso # (Auto) 0.05 (0.00-0.20) K/uL Immature Gran # (Auto) 0.02 (0.01-0.20) K/uL Toxic Vacuolation 2+ POC Sodium 142 (135-144) mmol/L Sodium 142 (136-145) mmol/L POC Potassium 3.6 (3.3-5.0) mmol/L Potassium 3.6 (3.5-5.1) mmol/L POC Chloride 103 (101-112) mmol/L Chloride 103 (98-107) mmol/L Carbon Dioxide 30 (21-32) mmol/L POC Total CO2 31 (24-31) mmol/L Anion Gap 9 (3-11) POC Anion Gap 12.0 L (16-25) mmol/L POC BUN 31 H (7-18) mg/dl BUN 30 H (6-23) mg/dl Creatinine 0.82 (0.6-1.2) mg/dl POC Creatinine 0.9 (0.6-1.3) mg/dl Est Cr Clr Drug Dosing Not Reportable eGFR 75.95 BUN/Creatinine Ratio 36.6 H (10-20) Glucose 93 (70-99(Fasting)) mg/dl POC Glucose (other) 95 (70-99) mg/dl Calcium 9.4 (8.6-10.3) mg/dl POC Ioniz Calcium Michael 1.01 L (1.12-1.32) mmol/l Total Bilirubin 0.3 (0.2-1.0) mg/dl AST 18 (13-39) U/L ALT 13 (7-52) U/L Alkaline Phosphatase 62 (34-104) U/L Total Protein 6.8 (6.0-8.3) gm/dl Albumin 3.4 (3.4-5.0) gm/dl Globulin 3.4 (2.5-4.0) gm/dl Albumin/Globulin Ratio 1.0 (0.9-2) Lipase 10 L (11-82) U/L Urine Color Yellow Urine Appearance Clear (Clear) Urine pH 5.5 (4.5-7.5) Ur Specific [place] > 1.045 H (1.000-1.030) Urine Protein Negative (Negative) Urine Glucose (UA) Negative (Negative) Urine Ketones Negative (Negative) Urine Blood Negative (Negative) Urine Nitrite Negative (Negative) Urine Bilirubin Negative (Negative) Urine Urobilinogen Negative (Negative) Ur Leukocyte Esterase 1+ H (Negative) Urine WBC (Auto) 21-50 H (0-5) /hpf Urine RBC (Auto) 0-2 (0-2) /hpf U Hyaline Cast (Auto) 0-2 (0-2) /lpf U Epithel Cells (Auto) 3-5 H (0-2) /hpf Urine Bacteria (Auto) 4+ H (None Seen) Urine Comment Administered Medications Discontinued Medications Ceftriaxone Sodium (Rocephin) 2,000 mg in 50 mls @ 100 mls/hr IV NOW STA Stop: 09/15/25 14:23 Last Admin: 09/15/25 14:43 Dose: 100 mls/hr Documented By: blank Ioversol (Optiray 320 125ml) 112 ml IV ONCE ONE Stop: 09/15/25 13:11 Last Admin: 09/15/25 13:10 Dose: 112 ml Documented By: JONES Imaging Data Radiologist's Impression: Head CTA 09/15/25 12:30 CT ANGIOGRAM OF THE BRAIN COMBO; CT ANGIOGRAM OF THE NECK CLINICAL HISTORY: Right lower extremity weakness. COMPARISON STUDY: CT of the brain dated 03/11/2025. TECHNIQUE: Unenhanced axial CT scan of the brain is performed. Subsequently, following the IV administration of 112 of Optiray 320, CT angiogram of the head and neck was performed from the aortic arch to the vertex. Images are reviewed in the axial, sagittal, and coronal planes. 3-D MIPS images are created and assessed. IV contrast was administered without complication. All measurements were calculated based on NASCET criteria. A dose lowering technique was utilized adhering to the principles of ALARA. CT DOSE: 1280.79 mGy.cm FINDINGS: Brain parenchyma: There is age-related involutional change noting moderate confluent subcortical and periventricular microangiopathic disease. There is no hemorrhage, mass effect, or evidence of acute territorial ischemia by CT criteria. There is no evidence of enhancing mass lesion on the angiogram phase images. The ventricles, sulci, and cisterns are prominent secondary to involutional change. Pulido-white matter differentiation is preserved. No extra- axial fluid collection is seen. Thoracic aorta: There is atherosclerotic calcification of the thoracic aorta. Visualized portions of the thoracic aorta are normal in caliber. The aortic arch demonstrates standard 3-vessel anatomy. Right carotid arterial system: The right common carotid artery is widely patent, as are the right internal and external carotid arteries. Calcified plaque is seen in the carotid bulb. Left carotid arterial system: The left common carotid artery is widely patent, as are the left internal and external carotid arteries. Calcified plaque is seen in the carotid bulb. Vertebral arteries: Widely patent bilaterally noting right sided dominance. Subclavian arteries: Widely patent bilaterally Intracranial vasculature: There is atherosclerotic calcification of the cavernous carotid arteries. The internal carotid arteries are patent at the skull base, as are the anterior and middle cerebral arteries bilaterally. The vertebrobasilar system and posterior cerebral arteries are widely patent. The right vertebral artery is dominant. There is origin of the left posterior cerebral artery. A posterior communicating artery is seen on the right. There is no aneurysm, high-grade stenosis, or focal vessel cut off seen throughout the intracranial circulation. Jugular veins: Patent bilaterally. Dural sinuses: Patent. Lung apices: Partially visualized upper lobe lung parenchyma appears clear. Soft tissues: The visualized pharyngeal soft tissues are normal in appearance noting angiographic phase technique. The oropharyngeal airway appears widely patent. The thyroid gland is atrophic and heterogeneous. The salivary are normal in appearance. No cervical lymphadenopathy is seen. Skeletal structures: The skeletal structures are osteopenic. The calvarium appears intact. The cervical spine is maintained noting advanced multilevel spondylosis. Orbits: The bony orbits are intact. Orbital contents are normal as visualized noting bilateral ocular lens implants. Sinuses and mastoids: There is moderate mucosal thickening in the left sphenoid sinus. The remaining paranasal sinuses are clear. The mastoid air cells are well pneumatized. IMPRESSION: 1. There is no hemorrhage, mass effect, or evidence of acute territorial ischemia by CT criteria. 2. Unremarkable CT angiogram of the brain. 3. Unremarkable CT angiogram of the neck. ACT 112: Negative or not required by law. Electronically signed by: Germán Villa M.D. 09/15/2025 1:36 PM Neck CTA 09/15/25 12:30 CT ANGIOGRAM OF THE BRAIN COMBO; CT ANGIOGRAM OF THE NECK CLINICAL HISTORY: Right lower extremity weakness. COMPARISON STUDY: CT of the brain dated 03/11/2025. TECHNIQUE: Unenhanced axial CT scan of the brain is performed. Subsequently, following the IV administration of 112 of Optiray 320, CT angiogram of the head and neck was performed from the aortic arch to the vertex. Images are reviewed in the axial, sagittal, and coronal planes. 3-D MIPS images are created and assessed. IV contrast was administered without complication. All measurements were calculated based on NASCET criteria. A dose lowering technique was utilized adhering to the principles of ALARA. CT DOSE: 1280.79 mGy.cm FINDINGS: Brain parenchyma: There is age-related involutional change noting moderate confluent subcortical and periventricular microangiopathic disease. There is no hemorrhage, mass effect, or evidence of acute territorial ischemia by CT criteria. There is no evidence of enhancing mass lesion on the angiogram phase images. The ventricles, sulci, and cisterns are prominent secondary to involutional change. Pulido-white matter differentiation is preserved. No extra- axial fluid collection is seen. Thoracic aorta: There is atherosclerotic calcification of the thoracic aorta. Visualized portions of the thoracic aorta are normal in caliber. The aortic arch demonstrates standard 3-vessel anatomy. Right carotid arterial system: The right common carotid artery is widely patent, as are the right internal and external carotid arteries. Calcified plaque is seen in the carotid bulb. Left carotid arterial system: The left common carotid artery is widely patent, as are the left internal and external carotid arteries. Calcified plaque is seen in the carotid bulb. Vertebral arteries: Widely patent bilaterally noting right sided dominance. Subclavian arteries: Widely patent bilaterally Intracranial vasculature: There is atherosclerotic calcification of the cavernous carotid arteries. The internal carotid arteries are patent at the skull base, as are the anterior and middle cerebral arteries bilaterally. The vertebrobasilar system and posterior cerebral arteries are widely patent. The right vertebral artery is dominant. There is origin of the left posterior cerebral artery. A posterior communicating artery is seen on the right. There is no aneurysm, high-grade stenosis, or focal vessel cut off seen throughout the intracranial circulation. Jugular veins: Patent bilaterally. Dural sinuses: Patent. Lung apices: Partially visualized upper lobe lung parenchyma appears clear. Soft tissues: The visualized pharyngeal soft tissues are normal in appearance noting angiographic phase technique. The oropharyngeal airway appears widely patent. The thyroid gland is atrophic and heterogeneous. The salivary are normal in appearance. No cervical lymphadenopathy is seen. Skeletal structures: The skeletal structures are osteopenic. The calvarium appears intact. The cervical spine is maintained noting advanced multilevel spondylosis. Orbits: The bony orbits are intact. Orbital contents are normal as visualized noting bilateral ocular lens implants. Sinuses and mastoids: There is moderate mucosal thickening in the left sphenoid sinus. The remaining paranasal sinuses are clear. The mastoid air cells are well pneumatized. IMPRESSION: 1. There is no hemorrhage, mass effect, or evidence of acute territorial ischemia by CT criteria. 2. Unremarkable CT angiogram of the brain. 3. Unremarkable CT angiogram of the neck. ACT 112: Negative or not required by law. Electronically signed by: Germán Villa M.D. 09/15/2025 1:36 PM Discharge Plan Visit Data Chief Complaint: Infection Stated Complaint: RT FOOT INFECTION ED Provider: Sanchez Casarez Discharge Problem: Right leg weakness, Leukocytosis, Anemia, Acute UTI Patient Disposition: Admitted As Inpatient Condition: Fair Discharge Instructions Interventions: ED Discharge Assessment Last Done: 09/15/25 16:02 Discharge Problem: Leukocytosis Qualifiers: Leukocytosis type: unspecified Qualified Code(s): D72.829 - Elevated white blood cell count, unspecified Anemia Qualifiers: Anemia type: unspecified type Qualified Code(s): D64.9 - Anemia, unspecified
[2025-09-15] MEDS: OPTIRAY 320 125ml IV ONE (13:10)
[2025-09-15 13:23] LABS: Hematocrit (blood only) 35.1 % (37.0-47.0); Hemoglobin 10.3 g/dl (12.0-16.0); Mean Corpuscular Hemoglobin 26.6 pg (25.0-34.0); Mean Corpuscular Volume 90.7 fL (80.0-100.0); Platelet Count 344 K/uL (130-400); RDW Standard Deviation 56.7 fL (36.4-46.3); Red Blood Count 3.87 M/uL (4.20-5.40); White Blood Count 11.35 K/ul (4.8-10.8)
--- NOTE | 2025-09-15 13:39 | CT Scan Report ---
CT ANGIOGRAM OF THE BRAIN COMBO; CT ANGIOGRAM OF THE NECK CLINICAL HISTORY: Right lower extremity weakness. COMPARISON STUDY: CT of the brain dated 03/11/2025. TECHNIQUE: Unenhanced axial CT scan of the brain is performed. Subsequently, following the IV adminis tration of 112 of Optiray 320, CT angiogram of the head and neck was performed from the aortic arch t o the vertex. Images are reviewed in the axial, sagittal, and coronal planes. 3-D MIPS images are cre ated and assessed. IV contrast was administered without complication. All measurements were calculate d based on NASCET criteria. A dose lowering technique was utilized adhering to the principles of ALA RA. CT DOSE: 1280.79 mGy.cm FINDINGS: Brain parenchyma: There is age-related involutional change noting moderate confluent subcortical and periventricular microangiopathic disease. There is no hemorrhage, mass effect, or evidence of acute t erritorial ischemia by CT criteria. There is no evidence of enhancing mass lesion on the angiogram ph ase images. The ventricles, sulci, and cisterns are prominent secondary to involutional change. Pulido- white matter differentiation is preserved. No extra-axial fluid collection is seen. Thoracic aorta: There is atherosclerotic calcification of the thoracic aorta. Visualized portions of the thoracic aorta are normal in caliber. The aortic arch demonstrates standard 3-vessel anatomy. Right carotid arterial system: The right common carotid artery is widely patent, as are the right int ernal and external carotid arteries. Calcified plaque is seen in the carotid bulb. Left carotid arterial system: The left common carotid artery is widely patent, as are the left legal internship al and external carotid arteries. Calcified plaque is seen in the carotid bulb. Vertebral arteries: Widely patent bilaterally noting right sided dominance. Subclavian arteries: Widely patent bilaterally Intracranial vasculature: There is atherosclerotic calcification of the cavernous carotid arteries. T he internal carotid arteries are patent at the skull base, as are the anterior and middle cerebral ar teries bilaterally. The vertebrobasilar system and posterior cerebral arteries are widely patent. The right vertebral artery is dominant. There is origin of the left posterior cerebral artery. A p osterior communicating artery is seen on the right. There is no aneurysm, high-grade stenosis, or foc al vessel cut off seen throughout the intracranial circulation. Jugular veins: Patent bilaterally. Dural sinuses: Patent. Lung apices: Partially visualized upper lobe lung parenchyma appears clear. Soft tissues: The visualized pharyngeal soft tissues are normal in appearance noting angiographic pha se technique. The oropharyngeal airway appears widely patent. The thyroid gland is atrophic and heter ogeneous. The salivary are normal in appearance. No cervical lymphadenopathy is seen. Skeletal structures: The skeletal structures are osteopenic. The calvarium appears intact. The cervic al spine is maintained noting advanced multilevel spondylosis. Orbits: The bony orbits are intact. Orbital contents are normal as visualized noting bilateral ocular lens implants. Sinuses and mastoids: There is moderate mucosal thickening in the left sphenoid sinus. The remaining paranasal sinuses are clear. The mastoid air cells are well pneumatized. IMPRESSION: 1. There is no hemorrhage, mass effect, or evidence of acute territorial ischemia by CT criteria. 2. Unremarkable CT angiogram of the brain. 3. Unremarkable CT angiogram of the neck. ACT 112: Negative or not required by law. Electronically signed by: Germán Villa M.D. 09/15/2025 1:36 PM
[2025-09-15 13:40] LABS: Alanine Aminotransferase 13 U/L (7-52); Albumin Globulin Ratio 1.0 (0.9-2); Albumin Level 3.4 gm/dl (3.4-5.0); Alkaline Phosphatase 62 U/L (34-104); Anion Gap 9 (3-11); Bilirubin,Total 0.3 mg/dl (0.2-1.0); Blood Urea Nitrogen 30 mg/dl (6-23); Calcium 9.4 mg/dl (8.6-10.3); Carbon Dioxide 30 mmol/L (21-32); Chloride 103 mmol/L (98-107); Globulin 3.4 gm/dl (2.5-4.0); Glucose 93 mg/dl (70-99(Fasting)); Lipase 10 U/L (11-82); Potassium 3.6 mmol/L (3.5-5.1); Sodium 142 mmol/L (136-145); Total Protein 6.8 gm/dl (6.0-8.3)
[2025-09-15 14:02] LABS: Immature Granulocytes # (auto) 0.02 K/uL (0.01-0.20); Immature Granulocytes % (auto) 0.2 %; Toxic Vacuolation 2+
[2025-09-15] MEDS: cefTRIAXone SODIUM 2,000 MG/50 ML BAG IV STA (14:43)
--- NOTE | 2025-09-15 14:47 | History & Physical Report ---
Date of Service September 15, 2025 Assessment & Plan (1) Foot drop, right: (2) Chronic progressive multiple sclerosis: (3) Asymptomatic bacteriuria: (4) Neurogenic bladder: (5) Paroxysmal atrial fibrillation: Plan Patient 74-year-old female with known progressive multiple sclerosis presents with complaints of a new onset of right foot drop since Tuesday. She denies any signs or symptoms consistent with any type of infection. Denies any new trauma. Observed in the MedSur unit MRI of the lumbar spine to determine if there is any lumbar etiology to her foot drop. Low suspicion for intracranial etiology for foot drop with negative CT and symptoms starting several days ago. Concerned this could be a possible flare of MS, trial of Solu-Medrol 1 g daily Consult neurology, patient may benefit from establishing local neurological care. They may be able to assist with getting her baclofen pump filled here locally. Patient states that her neurologist in [place] would fill it however that would require frequent trips to [place]. Will observe off of antibiotics at this time. With the patient's neurogenic bladder and daily straight cath, I suspect patient is chronically colonized with bacteria. She is displaying no signs of active infection. Will monitor off antibiotics. If the patient would start to swell more constitutional signs or symptoms would reconsider starting antibiotics. Therapy evaluation Case management for possible additional assistance at home History of Present Illness Chief Complaint: Right foot drop Primary Care Provider: KEVIN Lema Patient 74-year-old female with known progressive Multiple sclerosis who is fairly debilitated from this. Mostly sedentary but does try to go to exercise class 3 times per week and use a stand-up walker. Presents to the emergency room today with complaints of a right foot drop that she noticed starting on Tuesday. Evaluation in the emergency room was unremarkable for laboratory findings. CT of the head was unremarkable. Patient was referred to our service for further evaluation. Time my evaluation the patient has no complaints other than this right foot drop. She states that she woke up Tuesday morning noticing the foot drop. She has good strength/her normal strength with plantarflexion but has no dorsiflexion of her right foot. She reports that she went to [facility] emergency department on Tuesday. She states that they did no imaging, the ER doctor called some colleagues per her report and then recommended a foot brace is to prevent the foot drop. Her symptoms persisted prompting her to come back to [facility] ER today. Additionally on September 09, 2025 patient was seen outpatient for some questionable generalized symptoms and potentially some weakness. Urine culture was sent and grew out Klebsiella that is pansensitive. She says she took 1 dose of the Keflex had 1 bout of diarrhea and subsequently has stopped the antibiotic. She denies any fever or chills, no new weakness other than the foot drop, no nausea, no vomiting, no abdominal pain. No other symptoms that could be attributable to a urinary tract infection. She does have chronic neurogenic bladder. She straight caths herself on a daily basis and as needed. Reviewing records seems like she has frequent "UTIs.". Again has had no symptoms relatable to UTI over the last 6 days since the urine culture was sent. Also denies any cough or cold symptoms. No chest pain, no shortness of breath. Patient follows with a neurologist in the [place] area. She does have an implanted baclofen pump. However she states that the pump is empty. She has not been able to find someone here in locally to refill the baclofen pump. She apparently has a previous history of osteomyelitis and pain management at [facility] is hesitant to refill it. They have tried oral baclofen without much success. Daughter at the bedside states that since the baclofen pump ran dry she has noticed a steady decline in her overall quality of life. The patient's stiffness, flexibility, chronic muscle spasms and mobility has significantly d eclined since the baclofen pump has been empty. Has not established with a local neurologist or explored options through [facility] pain management for local management of her baclofen pump. Allergies Allergy/AdvReac Type Severity Reaction Status Date / Time No Known Allergies Allergy Verified 02/05/25 11:22 Home Medications Medication Instructions Recorded Confirmed Type cholecalciferol (vitamin D3) 25 2,000 units PO QAM 09/18/18 03/11/25 History mcg (1,000 unit) capsule oxybutynin chloride 15 mg 15 mg PO QAM 09/18/18 03/11/25 History tablet,extended release 24 hr prednisone 10 mg tablet 10 mg PO QAM 09/18/18 03/11/25 History teriflunomide 14 mg tablet 14 mg PO QPM 05/13/22 03/11/25 History (Aubagio) doxycycline hyclate 50 mg capsule 50 mg PO Q2D Rosacea 08/10/22 03/16/25 History melatonin 3 mg tablet 3 mg PO HS 03/05/23 03/11/25 History multivitamin 1 tab PO DAILY 03/05/23 03/11/25 History Baclofen Pump 0 mg SC DIRECTED 08/05/23 03/11/25 History apixaban 5 mg tablet (Eliquis) 5 mg PO BID 02/03/24 03/16/25 History atorvastatin 40 mg tablet 40 mg PO QAM 09/13/24 03/11/25 History duloxetine 30 mg capsule,delayed 60 mg PO DAILY 09/13/24 03/11/25 History release metoprolol succinate 25 mg 37.5 mg (1.5 x 25 mg) PO BID #60 02/23/25 03/11/25 Rx tablet,extended release 24 hr tabs tizanidine 4 mg tablet (Zanaflex) 4 mg PO Q6H PRN Muscle Spasm #0 02/23/25 03/11/25 Rx tabs ferrous sulfate 325 mg (65 mg 325 mg PO QAM 03/11/25 03/16/25 History iron) tablet,delayed release L.acidop,casei,lactis,rham-B.lact,luis miguel 1 cap PO DAILY #30 caps 03/16/25 Rx 625 mg (10 billion cell) capsule (Advanced Probiotic) amoxicillin 500 mg tablet 500 mg PO Q8H #27 tabs 03/16/25 Rx levofloxacin 750 mg tablet 750 mg PO DAILY #9 tabs 03/16/25 Rx Past Med/Surg History Problem List (Updated 03/26/25 @ 00:07 by Background Sharmila) Asymptomatic bacteriuria Foot drop, right Chronic progressive multiple sclerosis Enterococcus faecalis infection Pseudomonas aeruginosa infection Non-healing wound of left lower extremity Cellulitis of left lower extremity Acute dehydration (Acute) Weakness (Acute) Sepsis Confusion (Acute) Dyslipidemia Peptic ulcer disease Nonrheumatic aortic (valve) stenosis Iron deficiency anemia Weakness (Acute) PSVT (paroxysmal supraventricular tachycardia) Chronic osteomyelitis involving right ankle and foot Leukocytosis (Acute) Paroxysmal atrial fibrillation Rosacea Traumatic open wound of left lower leg (Acute) Cellulitis of left lower leg (Acute) HX: breast cancer Left breast cancer with surgery and chemo/radiation-left arm restriction Chronic anemia Hypertension CAD (coronary artery disease) Non-obstructive per 06/2021 cardiac cath History of pulmonary embolism ~ 6 yrs ago, IVC filter still in place History of DVT (deep vein thrombosis) ~6 yrs ago Multiple sclerosis (Chronic) Follows with Dr. Walker/[facility] Stable Neurogenic bladder (Chronic) Presence of intrathecal pump (Chronic) baclofen pump in place S/P IVC filter (Chronic) H/O left mastectomy (Chronic) with lymph node removal>LEFT ARM RESTRICTION Medical History Adult failure to thrive Ambulatory dysfunction Generalized weakness Immunocompromised due to corticosteroids Non-ST elevation MO (NSTEMI) Hypomagnesemia Elevated lactic acid level Complicated UTI (urinary tract infection) Lower extremity cellulitis Septic shock Shock circulatory Contusion of face Head injury Fall Cellulitis Sepsis Osteoarthritis of knees, bilateral Knee pain Septic prepatellar bursitis Wound infection CLABSI (central line-associated bloodstream infection) Bacteremia Fungemia Myocardial strain Tachycardia Hypomagnesemia Diarrhea Acute deep vein thrombosis of left lower extremity Traumatic open wound of right lower leg Catheter-associated urinary tract infection Leg wound, right Sepsis Skin tear of left upper extremity Chronic refractory osteomyelitis of ankle Surgical wound, non healing Osteomyelitis of ankle Chronic ulcer of right foot Sepsis Paroxysmal atrial fibrillation Lower extremity edema Traumatic open wound of left lower leg with delayed healing Ulcer of right ankle Paroxysmal atrial fibrillation with RVR Hypotension Acute UTI Elevated lactic acid level Hypotension Elevated troponin I level Sepsis Elevated troponin Multiple sclerosis Sepsis Closed right scapular fracture Encounter for pre-operative examination UTI (urinary tract infection) History of supraventricular tachycardia GERD (gastroesophageal reflux disease) controlled, stable per pt Raynaud disease Osteoporosis Breast cancer Left (17 years ago) Gastric ulcer Osteoarthritis of right knee Cellulitis of right lower extremity Anemia Cellulitis Acute leg pain Fever History of recent hospitalization 09/2022 [facility] - sepsis History of blood transfusion Limb alert care status left arm Osteoarthritis of right shoulder History of GI bleed Upper GIB (2019) felt 2/2 NSAID use History of non-ST elevation myocardial infarction (NSTEMI) 06/2021 (had heart cath, no stents) Hx of gastric ulcer 02/2021 Anemia Hypertension controlled, stable per pt Surgical History Status post reverse total replacement of right shoulder (~04/2022) History of appendectomy S/P partial hysterectomy History of open reduction and internal fixation (ORIF) procedure "left hip" History of removal of Port-a-Cath (02/09/24) Mediport Removal(Right) - Tristin Lazo DO Port-A-Cath in place (09/29/23) A-Port Insertion, right internal jugular(Right) - Tristin Lazo DO S/p reverse total shoulder arthroplasty right: 05/25/22 LMA#4. No postop issues per anesthesia progress note. History of cardiac cath Cardiac cath (07/06/21; [facility]) > Right dominant coronary system. No evidence of aortic stenosis. Normal left ventricular filling pressures. Nonobstructive disease involving the ostial LAD. No evidence of acute coronary syndrome. Approximately 50% ostial stenosis of the LAD. There was some very mild disease at the ostium of the left circumflex. Recommendations: Medical management. History of esophagogastroduodenoscopy (EGD) History of colonoscopy History of tooth extraction Family History Mother Heart disorder Other No family history of adverse response to anesthesia Social History Smoking Status: Former smoker Tobacco Type: Cigarettes packs per day: 1; Cigarettes Per Day: stopped in 1977; Second Hand Exposure: No; Do You Dip or Chew Tobacco: No; Hx Alcohol Use: No Hx Substance Use: No Preferred Language: Tuvaluan Communication Ability: Effective Visual Impairment: No Limitations Hearing Ability: Use of Hearing Aid Chemical Pathologist Required: No Beliefs That Will Affect Care: None marital status: / Current Living Situation: Alone Current Living Situation Comment: daughters are an hour away but check on her frequently per pt current occupational status: retired How many Children do You have: 3 Feels Safe at Home: Yes Childhood Exposure to Second-Hand Smoke: Yes Diet: regular caffeine: Yes Assistive Devices: Walker and Wheelchair Review of Systems Review of Systems: Pertinent positive and negative review of systems as mentioned in the HPI Physical Exam Physical Exam: Constitutional: Alert, no acute distress nontoxic HEENT: Mucous membranes moist. Sclera clear, poor dentition Neck: Soft, no adenopathy Lungs: Clear to auscultation, decreased, no wheezes rales or rhonchi CV: S1-S2, regular, grade 3/6 systolic ejection murmur Abdomen: Soft, nontender, nondistended Extremities: No significant edema Musculoskeletal: No significant joint tenderness Neuro: Patient with significant weakness to dorsiflexion of the right foot when compared to the left, this is new per patient report. Good strength with plantarflexion. Derm: Patient has chronic venous stasis changes of bilateral feet with purplish reddish discoloration of the skin. There is no evidence of cellulitis, she does have a chronic 0.5 cm superficial ulceration on her right lateral malleolus is present on admission. It is clean, no surrounding redness, no evidence of infection Psych: Cooperative, normal mood Results & Data Results & Data Vital Signs (Past 12 Hours) Vital Signs Temp Pulse Resp BP Pulse Ox O2 Del Method 09/15/25 13:31 81 09/15/25 12:08 36.4 C L 94 H 17 122/73 96 Room Air Diagnostic Findings Reviewed imaging, laboratory and diagnostic studies. Pertinent findings as bel ow. WBCs 11.3 Hemoglobin 10.3 Platelets 344 Electrolytes within normal range Creatinine 0.82 LFTs stable CTA of the head and neck shows no significant hemorrhage, mass effects or evidence of ischemia, no large vessel occlusion Reviewed outside EMR: Reviewed medication list, problem list, previous outpatient appointments Code Status & VTE Plan VTE Prophylaxis Plan VTE Prophylaxis will be ordered: No Reason for no VTE drug order: Contraindicated
[2025-09-15 15:43] LABS: Appearance Urine Clear (Clear); Bacteria Urine Automated 4+ (None Seen); Cast Urine Automated 0-2 /lpf (0-2); Glucose Urine UA Negative (Negative); RBC Urine Automated 0-2 /hpf (0-2); WBC Urine Automated 21-50 /hpf (0-5)
[2025-09-15] MEDS ORDERED: ACETAMINOPHEN 325 MG TAB PO PRN (16:34)
[2025-09-15] MEDS ORDERED: ALUMINUM/MAGNESIUM SUSP 30 ML UDC PO PRN (16:34)
[2025-09-15] MEDS ORDERED: MAGNESIUM HYDROXIDE SUSP 30 ML UDC PO PRN (16:34)
[2025-09-15] MEDS ORDERED: POLYETHYLENE (MIRALAX) 17 GM PACK PO PRN (16:34)
[2025-09-15] MEDS: methylPREDNISolone 1,000 MG in SODIUM CHLORIDE 0.9% 250 ML IV SCH (17:33)
[2025-09-15] MEDS: APIXABAN 5 MG TABLET PO SCH (20:44)
[2025-09-15] MEDS: GABAPENTIN 100 MG CAP PO SCH (20:44)
[2025-09-15] MEDS: METOPROLOL SUCC 25MG EXT REL TAB PO SCH (20:44)
[2025-09-15] MEDS: MELATONIN 3 MG TAB PO PRN (20:55)
[2025-09-15] MEDS: OPTIRAY 320 100ml IV ONE (21:39)
--- NOTE | 2025-09-15 23:54 | CT Scan Report ---
Exam(s): CT PELVIS With Contrast IV Amt: 90 ml optiray 320 EXAM: CT Pelvis With Intravenous Contrast CLINICAL HISTORY: Reason for exam: Gluteal mass, inguinal adenopathy. TECHNIQUE: Axial computed tomography images of the pelvis with intravenous contrast. CTDI is 13.13 mGy and DLP is 417.46 mGy-cm. Automated exposure control was utilized for the study. A dose lowering technique was utilized adhering to the principles of ALARA. CONTRAST: Patient received 90 ml optiray 320 of IV contrast COMPARISON: 10/01/2024 FINDINGS: Medication pump implanted in the left abdominal wall with epidural catheter extending into the thoracic spinal canal. Visualized bowel-gas pattern is nonobstructive. There is moderate stool in the colon. There is atherosclerosis of the lower visualized aorta and the iliac arteries. There is no aneurysm of the visualized lower aorta. There is no adenopathy. There is trace free pelvic fluid. There is no free air. There is contrast within the urinary bladder. Numerous small bladder diverticula are present. There is a small volume of bladder gas suggesting recent instrumentation. Bladder wall is thickened. Uterus is not visualized and is presumed surgically absent. Bones are demineralized. There is disc and facet degeneration in the visualized lumbar spine. There is an old sacral fracture of the S3 level. There is an old right pubic bone fracture. A left hip hemiarthroplasty is in place. There is a thick-walled collection within the left gluteus katelyn muscle measuring 10.5 x 6.7 cm, abutting the left ischial tuberosity. There is subcutaneous stranding and skin thickening in the bilateral gluteal regions. Incidentally noted intramuscular lipoma in the right adductor compartment. There is a stable fat containing left-sided spigelian hernia. IMPRESSION: 1. Thick-walled fluid collection, presumed abscess, in the left gluteus katelyn muscle measuring 10.5 x 6.7 cm. This abuts the cortical margin of the left ischial tuberosity. 2. Bilateral gluteal cellulitis, [id number]. 3. Bladder wall thickening. Small volume of gas in the bladder presumed related to recent instrumentation. Correlate with urinalysis to assess for cystitis. Electronically signed by: Osorio Benítez M.D. 09/15/25 23:53 PM
[2025-09-16] MEDS: cefTRIAXone SODIUM 2,000 MG/50 ML BAG IV SCH (08:03)
[2025-09-16] MEDS ORDERED: ERTAPENEM 1000MG 1,000 MG/10 ML SYR IV SCH (08:15)
[2025-09-16] MEDS ORDERED: PIPERACILLIN/TAZOBACTAM 4.5 GM/100 ML BAG IV SCH (08:15)
[2025-09-16 08:18] LABS: Hematocrit (blood only) 31.9 % (37.0-47.0); Hemoglobin 9.6 g/dl (12.0-16.0); Mean Corpuscular Hemoglobin 26.2 pg (25.0-34.0); Mean Corpuscular Volume 87.2 fL (80.0-100.0); Platelet Count 313 K/uL (130-400); RDW Standard Deviation 53.9 fL (36.4-46.3); Red Blood Count 3.66 M/uL (4.20-5.40); White Blood Count 4.22 K/ul (4.8-10.8)
[2025-09-16 08:23] LABS: Anion Gap 6.0 (3-11); Blood Urea Nitrogen 28.0 mg/dl (6-23); Calcium 8.7 mg/dl (8.6-10.3); Carbon Dioxide 27.0 mmol/L (21-32); Chloride 107.0 mmol/L (98-107); Creatinine Clr Calc Pharmacy 50.5 ml/min; Glucose 140.0 mg/dl (70-99(Fasting)); Potassium 4.5 mmol/L (3.5-5.1); Sodium 140.0 mmol/L (136-145)
[2025-09-16] MEDS: ATORVASTATIN 40 MG TAB PO SCH (08:38)
[2025-09-16] MEDS: CHOLECALCIFEROL 25 MCG (1000 UNITS) TAB PO SCH (08:38)
[2025-09-16] MEDS: ESCITALOPRAM OXALATE 20 MG TAB PO SCH (08:39)
[2025-09-16] MEDS: LOSARTAN POTASSIUM 50 MG TAB PO SCH (08:39)
[2025-09-16] MEDS: OXYBUTYNIN CHLORIDE XL 5 MG TABCR PO SCH (08:40)
[2025-09-16] MEDS: GADOBUTROL 30ML VIAL IV ONE (09:15)
[2025-09-16] MEDS: PIPERACILLIN/TAZOBACTAM 4.5 GM/100 ML BAG IV ONE (10:08)
--- NOTE | 2025-09-16 10:13 | Magnetic Resonance Report ---
MR lumbar spine wo/w con CLINICAL HISTORY: 74 years-old Female with right foot drop. Acute on chronic low back pain with righ t lower family radicular symptoms COMPARISON: CT pelvis 09/15/2025, MRI lumbar spine December 27, 2018 TECHNIQUE: Multiplanar, multi sequence MRI of the lumbar spine was performed with and without intrave nous contrast. FINDINGS: 31 degrees levoscoliosis measured from L1-L4. The vertebral body heights are normal. There is no T1 fracture line or marrow replacement process. The conus terminates at L1. The visualized spinal cor d and cauda equina are normal. There is no paraspinal edema, mass, or prevertebral fluid collection. There are a few renal cysts measuring up to approximately 4 cm on the right. There is a large hiata l hernia. Artifact related to a battery pack within the left lower abdominal wall. Study is mildly mo tion degraded. Severe multilevel intervertebral disc space narrowing, spondylitic spurring and facet arthrosis. Trace fluid within the L2-L3 disc space is likely on a degenerative basis. No significant marrow edema or endplate erosions. Mild intermixed Modic degeneration is noted at several levels, mos t pronounced at L1-L2 and L2-L3 with mild related enhancement. Posterior disc osteophyte complex formation with ligamentum flavum thickening and advanced facet arth rosis in the lower thoracic spine redemonstrated. At T10-T11 there is moderate central canal stenosis with AP dimension of the thecal sac measuring 7 mm. Mild to moderate bilateral neural foraminal narr owing at this level. T12-L1: Posterior disc osteophyte complex is largest centrally. Ligamentum flavum thickening with mo derate facet arthrosis. Flattening of the ventral thecal sac without significant central canal stenos is. The neural foramen are also patent. L1-L2: Posterior disc osteophyte complex. Ligamentum flavum thickening with moderate facet arthrosis .Mild central canal stenosis with AP dimension of the thecal sac measuring 9 mm. There is at least mo derate narrowing of the lateral recesses. Mild left with moderate right neural foraminal narrowing is similar to prior. L2-L3: Severe intervertebral disc space narrowing. Small posterior disc osteophyte complex with mode rate facet arthrosis. Mild central canal stenosis, AP dimension of the thecal sac measuring 9 mm. Mod erate narrowing of the right lateral recess. The left neural foramen is patent. Moderate to severe ri ght neural foraminal narrowing has worsened from prior. L3-L4: Moderate intervertebral disc space narrowing. Posterior disc osteophyte complex with ligament um flavum thickening and advanced facet arthrosis. There is a round structure within the left paracen tral space/left lateral recess on image 12 series 6 image 14 series 3 measuring 8 x 5 x 10 mm posteri or to the L3 vertebral body, new from prior which appears to extend from the adjacent L3-L4 disc spac e. This may abut the adjacent left L4 nerve root causing at least mild left lateral recess narrowing. Moderate central canal stenosis with AP dimension of the thecal sac measuring 7 mm. The left neural foramen is patent. Mild right neural foraminal narrowing. L4-L5: Moderate intervertebral disc space narrowing. Small posterior disc osteophyte complex with mo derate facet arthrosis. Central canal and right neuroforamen are patent. Moderate left lateral recess narrowing. Mild left neural foraminal stenosis is similar to prior. L5-S1: Small circumferential disc osteophyte complex with moderate facet arthrosis. Central canal an d right neural foramen are patent. Minimal left neural foraminal stenosis. IMPRESSION: 1. No acute fracture, subluxation or significant marrow edema. 2. 10 mm disc extrusion versus sequestered disc fragment at L3-L4 as above contributes to cause moder ate central canal stenosis at this level. 3. Multilevel neural foraminal stenosis as above with progression at L2-L3 compared to 12/27/2018. 4. Levoscoliosis. 5. No abnormal enhancement. ACT 112: Negative or not required by law. The above report was generated using voice recognition software. It may contain grammatical, syntax o r spelling errors. Electronically signed by: Nasir Mccauley M.D. 09/16/2025 10:12 AM
--- NOTE | 2025-09-16 11:22 | Surgery Consultation ---
Date of Consultation September 16, 2025 Assessment & Plan (1) Abnormal CT scan, pelvis: subcutaneous fluid collection of left buttock, chronic for at least 4 months. avss no leukocytosis no erythema or induration at site of large fluid collection. This has been present for several months. No signs of infection. ?etiology Plan: No surgical intervention recommended. Given the close proximity to the prior hardware and bone would recommend ortho consultation for their opinion. May consider IR for aspiration for definitive diagnosis? Continue medical management our services signing off, call with question/concerns. Dr. Coon has seen and examined patient. History of Present Illness Reason for Consultation: large left gluteal fluid collection Requesting Physician: KEVIN Clifton Attending Physician: Fernando Armenta MD History of Present Illness Kandy is a 74 yo female with pmh of CAD, pulmonary embolism, MS, Neurogenic bladder, HTN, chronic anemia, cellulitis of lower extremity, osteomyelitis of lower extremity, poor wound healing, PAF on eliquis presented to ED for right foot drop and weakness. Found ot have large fluid collection of left buttock, CT scan of abd/pelvis concerning for infection however she states that she has had this for months, noticed in the summer time when swimming. Some discomfort when sitting on but otherwise no pain. Allergies Allergy/AdvReac Type Severity Reaction Status Date / Time No Known Allergies Allergy Verified 02/05/25 11:22 Home Medications Medication Instructions Recorded Confirmed Type cholecalciferol (vitamin D3) 25 2,000 units PO QAM 09/18/18 09/15/25 History mcg (1,000 unit) capsule oxybutynin chloride 15 mg 15 mg PO QAM 09/18/18 09/15/25 History tablet,extended release 24 hr prednisone 10 mg tablet 10 mg PO QAM 09/18/18 09/15/25 History teriflunomide 14 mg tablet 14 mg PO QPM 05/13/22 09/15/25 History (Aubagio) doxycycline hyclate 50 mg capsule 50 mg PO Q2D Rosacea 08/10/22 09/15/25 History melatonin 3 mg tablet 3 mg PO HS 03/05/23 09/15/25 History apixaban 5 mg tablet (Eliquis) 5 mg PO BID 02/03/24 09/15/25 History atorvastatin 40 mg tablet 40 mg PO QAM 09/13/24 09/15/25 History metoprolol succinate 25 mg 37.5 mg (1.5 x 25 mg) PO BID #60 02/23/25 09/15/25 Rx tablet,extended release 24 hr tabs tizanidine 4 mg tablet (Zanaflex) 4 mg PO Q6H PRN Muscle Spasm #0 02/23/25 09/15/25 Rx tabs ferrous sulfate 325 mg (65 mg 325 mg PO QAM 03/11/25 09/15/25 History iron) tablet,delayed release L.acidop,casei,lactis,rham-B.lact,luis miguel 1 cap PO DAILY #30 caps 03/16/25 09/15/25 Rx 625 mg (10 billion cell) capsule (Advanced Probiotic) escitalopram oxalate 10 mg tablet 10 mg PO QAM 09/15/25 09/15/25 History pantoprazole 40 mg tablet,delayed 40 mg PO QAM 09/15/25 09/15/25 History release Patient History Medical History Adult failure to thrive Ambulatory dysfunction Generalized weakness Immunocompromised due to corticosteroids Non-ST elevation DE (NSTEMI) Hypomagnesemia Elevated lactic acid level Complicated UTI (urinary tract infection) Lower extremity cellulitis Septic shock Shock circulatory Contusion of face Head injury Fall Cellulitis Sepsis Osteoarthritis of knees, bilateral Knee pain Septic prepatellar bursitis Wound infection CLABSI (central line-associated bloodstream infection) Bacteremia Fungemia Myocardial strain Tachycardia Hypomagnesemia Diarrhea Acute deep vein thrombosis of left lower extremity Traumatic open wound of right lower leg Catheter-associated urinary tract infection Leg wound, right Sepsis Skin tear of left upper extremity Chronic refractory osteomyelitis of ankle Surgical wound, non healing Osteomyelitis of ankle Chronic ulcer of right foot Sepsis Paroxysmal atrial fibrillation Lower extremity edema Traumatic open wound of left lower leg with delayed healing Ulcer of right ankle Paroxysmal atrial fibrillation with RVR Hypotension Acute UTI Elevated lactic acid level Hypotension Elevated troponin I level Sepsis Elevated troponin Multiple sclerosis Sepsis Closed right scapular fracture Encounter for pre-operative examination UTI (urinary tract infection) History of supraventricular tachycardia GERD (gastroesophageal reflux disease) controlled, stable per pt Raynaud disease Osteoporosis Breast cancer Left (17 years ago) Gastric ulcer Osteoarthritis of right knee Cellulitis of right lower extremity Anemia Cellulitis Acute leg pain Fever History of recent hospitalization 09/2022 [facility] - sepsis History of blood transfusion Limb alert care status left arm Osteoarthritis of right shoulder History of GI bleed Upper GIB (2019) felt 2/2 NSAID use History of non-ST elevation myocardial infarction (NSTEMI) 06/2021 (had heart cath, no stents) Hx of gastric ulcer 02/2021 Anemia Hypertension controlled, stable per pt Surgical History Status post reverse total replacement of right shoulder (~04/2022) History of appendectomy S/P partial hysterectomy History of open reduction and internal fixation (ORIF) procedure "left hip" History of removal of Port-a-Cath (02/09/24) Mediport Removal(Right) - Tristin Lazo DO Port-A-Cath in place (09/29/23) A-Port Insertion, right internal jugular(Right) - Tristin Lazo DO S/p reverse total shoulder arthroplasty right: 05/25/22 LMA#4. No postop issues per anesthesia progress note. History of cardiac cath Cardiac cath (07/06/21; [facility]) > Right dominant coronary system. No evidence of aortic stenosis. Normal left ventricular filling pressures. Nonobstructive disease involving the ostial LAD. No evidence of acute coronary syndrome. Approximately 50% ostial stenosis of the LAD. There was some very mild disease at the ostium of the left circumflex. Recommendations: Medical management. History of esophagogastroduodenoscopy (EGD) History of colonoscopy History of tooth extraction Family History Mother Heart disorder Other No family history of adverse response to anesthesia Social History Smoking Status: Never smoker Tobacco Type: Cigarettes packs per day: 1; Cigarettes Per Day: stopped in 1977; Second Hand Exposure: No; Do You Dip or Chew Tobacco: No; Hx Alcohol Use: No Hx Substance Use: No Preferred Language: Lao Communication Ability: Effective Visual Impairment: No Limitations Hearing Ability: Use of Hearing Aid Consulting Manager Required: No Beliefs That Will Affect Care: None marital status: / Current Living Situation: Alone Current Living Situation Comment: Apartment current occupational status: retired How many Children do You have: 3 Other Information That Helps Us Care for You: No Feels Safe at Home: Yes Safety Concerns: Feels Safe At This Time Childhood Exposure to Second-Hand Smoke: Yes Diet: regular caffeine: Yes Assistive Devices: Hearing Aid - Left, Walker and Wheelchair Review of Systems Review of Systems: All systems reviewed & are unremarkable except as noted in HPI & below Physical Exam Constitutional: WD/WN, vitals as above cooperative and comfortable; no acute distress and not ill appearing Gastrointestinal (Abdomen): Left buttock: with large fluid collection. There is no overlying erythema or induration to suggest abscess. Minimally tender on examination. No heat to palpation. Skin: no rashes, warm and dry Psychiatric: Orientation: alert and oriented x 3 Results & Data Vital Signs (Past 12 Hours) Vital Signs Temp Pulse Resp BP Pulse Ox O2 Del Method 09/16/25 07:11 36.3 C L 85 16 129/82 95 Room Air Laboratory Results 09/16/25 09/15/25 09/15/25 Range/Units 07:23 14:41 13:04 WBC 4.22 L D (4.8-10.8) K/ul RBC 3.66 L (4.20-5.40) M/uL Hgb 9.6 L (12.0-16.0) g/dl POC Hgb 12.2 (12.0-16.0) g/dl Hct 31.9 L (37.0-47.0) % POC Hct 36 L (37-47) % MCV 87.2 (80.0-100.0) fL MCH 26.2 (25.0-34.0) pg MCHC 30.1 L (32.0-36.0) g/dL RDW Std Deviation 53.9 H (36.4-46.3) fL RDW Coeff of Tiffanie 17.2 H (11.5-14.5) % Plt Count 313 (130-400) K/uL MPV 10.7 (9.4-12.4) fL Immature Gran % (Auto) % Neut % (Auto) % Lymph % (Auto) % Bennett % (Auto) % Eos % (Auto) % Baso % (Auto) % Neut # (Auto) (1.40-6.50) K/uL Lymph # (Auto) (1.20-3.40) K/uL Bennett # (Auto) (0.11-0.59) K/uL Eos # (Auto) (0.00-0.50) K/uL Baso # (Auto) (0.00-0.20) K/uL Immature Gran # (Auto) (0.01-0.20) K/uL Toxic Vacuolation POC Sodium 142 (135-144) mmol/L Sodium 140 (136-145) mmol/L POC Potassium 3.6 (3.3-5.0) mmol/L Potassium 4.5 D (3.5-5.1) mmol/L POC Chloride 103 (101-112) mmol/L Chloride 107 (98-107) mmol/L Carbon Dioxide 27 (21-32) mmol/L POC Total CO2 31 (24-31) mmol/L Anion Gap 6 (3-11) POC Anion Gap 12.0 L (16-25) mmol/L POC BUN 31 H (7-18) mg/dl BUN 28 H (6-23) mg/dl Creatinine 0.87 (0.6-1.2) mg/dl POC Creatinine 0.9 (0.6-1.3) mg/dl Est Cr Clr Drug Dosing 50.5 eGFR 70.74 BUN/Creatinine Ratio 32.2 H (10-20) Glucose 140 H (70-99(Fasting)) mg/dl POC Glucose (other) 95 (70-99) mg/dl Calcium 8.7 (8.6-10.3) mg/dl POC Ioniz Calcium Michael 1.01 L (1.12-1.32) mmol/l Total Bilirubin (0.2-1.0) mg/dl AST (13-39) U/L ALT (7-52) U/L Alkaline Phosphatase (34-104) U/L Total Protein (6.0-8.3) gm/dl Albumin (3.4-5.0) gm/dl Globulin (2.5-4.0) gm/dl Albumin/Globulin Ratio (0.9-2) Lipase (11-82) U/L Urine Color Yellow Urine Appearance Clear (Clear) Urine pH 5.5 (4.5-7.5) Ur Specific [place] > 1.045 H (1.000-1.030) Urine Protein Negative (Negative) Urine Glucose (UA) Negative (Negative) Urine Ketones Negative (Negative) Urine Blood Negative (Negative) Urine Nitrite Negative (Negative) Urine Bilirubin Negative (Negative) Urine Urobilinogen Negative (Negative) Ur Leukocyte Esterase 1+ H (Negative) Urine WBC (Auto) 21-50 H (0-5) /hpf Urine RBC (Auto) 0-2 (0-2) /hpf U Hyaline Cast (Auto) 0-2 (0-2) /lpf U Epithel Cells (Auto) 3-5 H (0-2) /hpf Urine Bacteria (Auto) 4+ H (None Seen) Urine Comment 09/15/25 Range/Units 13:00 WBC 11.35 H (4.8-10.8) K/ul RBC 3.87 L (4.20-5.40) M/uL Hgb 10.3 L (12.0-16.0) g/dl POC Hgb (12.0-16.0) g/dl Hct 35.1 L (37.0-47.0) % POC Hct (37-47) % MCV 90.7 (80.0-100.0) fL MCH 26.6 (25.0-34.0) pg MCHC 29.3 L (32.0-36.0) g/dL RDW Std Deviation 56.7 H (36.4-46.3) fL RDW Coeff of Tiffanie 17.1 H (11.5-14.5) % Plt Count 344 (130-400) K/uL MPV 10.7 (9.4-12.4) fL Immature Gran % (Auto) 0.2 % Neut % (Auto) 90.7 % Lymph % (Auto) 4.1 % Bennett % (Auto) 4.4 % Eos % (Auto) 0.2 % Baso % (Auto) 0.4 % Neut # (Auto) 10.30 H (1.40-6.50) K/uL Lymph # (Auto) 0.46 L (1.20-3.40) K/uL Bennett # (Auto) 0.50 (0.11-0.59) K/uL Eos # (Auto) 0.02 (0.00-0.50) K/uL Baso # (Auto) 0.05 (0.00-0.20) K/uL Immature Gran # (Auto) 0.02 (0.01-0.20) K/uL Toxic Vacuolation 2+ POC Sodium (135-144) mmol/L Sodium 142 (136-145) mmol/L POC Potassium (3.3-5.0) mmol/L Potassium 3.6 (3.5-5.1) mmol/L POC Chloride (101-112) mmol/L Chloride 103 (98-107) mmol/L Carbon Dioxide 30 (21-32) mmol/L POC Total CO2 (24-31) mmol/L Anion Gap 9 (3-11) POC Anion Gap (16-25) mmol/L POC BUN (7-18) mg/dl BUN 30 H (6-23) mg/dl Creatinine 0.82 (0.6-1.2) mg/dl POC Creatinine (0.6-1.3) mg/dl Est Cr Clr Drug Dosing Not Reportable eGFR 75.95 BUN/Creatinine Ratio 36.6 H (10-20) Glucose 93 (70-99(Fasting)) mg/dl POC Glucose (other) (70-99) mg/dl Calcium 9.4 (8.6-10.3) mg/dl POC Ioniz Calcium Michael (1.12-1.32) mmol/l Total Bilirubin 0.3 (0.2-1.0) mg/dl AST 18 (13-39) U/L ALT 13 (7-52) U/L Alkaline Phosphatase 62 (34-104) U/L Total Protein 6.8 (6.0-8.3) gm/dl Albumin 3.4 (3.4-5.0) gm/dl Globulin 3.4 (2.5-4.0) gm/dl Albumin/Globulin Ratio 1.0 (0.9-2) Lipase 10 L (11-82) U/L Urine Color Urine Appearance (Clear) Urine pH (4.5-7.5) Ur Specific [place] (1.000-1.030) Urine Protein (Negative) Urine Glucose (UA) (Negative) Urine Ketones (Negative) Urine Blood (Negative) Urine Nitrite (Negative) Urine Bilirubin (Negative) Urine Urobilinogen (Negative) Ur Leukocyte Esterase (Negative) Urine WBC (Auto) (0-5) /hpf Urine RBC (Auto) (0-2) /hpf U Hyaline Cast (Auto) (0-2) /lpf U Epithel Cells (Auto) (0-2) /hpf Urine Bacteria (Auto) (None Seen) Urine Comment Diagnostic Findings Exam(s): CT PELVIS With Contrast IV Amt: 90 ml optiray 320 EXAM: CT Pelvis With Intravenous Contrast CLINICAL HISTORY: Reason for exam: Gluteal mass, inguinal adenopathy. TECHNIQUE: Axial computed tomography images of the pelvis with intravenous contrast. CTDI is 13.13 mGy and DLP is 417.46 mGy-cm. Automated exposure control was utilized for the study. A dose lowering technique was utilized adhering to the principles of ALARA. CONTRAST: Patient received 90 ml optiray 320 of IV contrast COMPARISON: 10/01/2024 FINDINGS: Medication pump implanted in the left abdominal wall with epidural catheter extending into the thoracic spinal canal. Visualized bowel-gas pattern is nonobstructive. There is moderate stool in the colon. There is atherosclerosis of the lower visualized aorta and the iliac arteries. There is no aneurysm of the visualized lower aorta. There is no adenopathy. There is trace free pelvic fluid. There is no free air. There is contrast within the urinary bladder. Numerous small bladder diverticula are present. There is a small volume of bladder gas suggesting recent instrumentation. Bladder wall is thickened. Uterus is not visualized and is presumed surgically absent. Bones are demineralized. There is disc and facet degeneration in the visualized lumbar spine. There is an old sacral fracture of the S3 level. There is an old right pubic bone fracture. A left hip hemiarthroplasty is in place. There is a thick-walled collection within the left gluteus katelyn muscle measuring 10.5 x 6.7 cm, abutting the left ischial tuberosity. There is subcutaneous stranding and skin thickening in the bilateral gluteal regions. Incidentally noted intramuscular lipoma in the right adductor compartment. There is a stable fat containing left-sided spigelian hernia. IMPRESSION: 1. Thick-walled fluid collection, presumed abscess, in the left gluteus katelyn muscle measuring 10.5 x 6.7 cm. This abuts the cortical margin of the left ischial tuberosity. 2. Bilateral gluteal cellulitis, [id number]. 3. Bladder wall thickening. Small volume of gas in the bladder presumed related to recent instrumentation. Correlate with urinalysis to assess for cystitis. Personally reviewed ct scan images, agree with above findings
--- NOTE | 2025-09-16 13:53 | Hospitalist Progress Note ---
Date of Service September 16, 2025 Assessment & Plan (1) Foot drop, right: (2) Chronic progressive multiple sclerosis: (3) Asymptomatic bacteriuria: (4) Neurogenic bladder: (5) Paroxysmal atrial fibrillation: Plan 74 year old female with PMH significant for CAD, HTN, dyslipidemia, PAF, history of SVT, chronic DVT, PUD, TODD, MS, neurogenic bladder requiring overnight catheterization, rosacea, and chronic osteomyelitis of RLE who presented to the ED on 09/15/2025 with right foot drop. Right foot drop Patient presenting with inability to dorsiflex right foot x3 days Head and neck CTA negative Lumbar MRI revealed 10mm disc extrusion vs sequestered disc fragment at L3-L4 with moderate central canal stenosis, multilevel neural foraminal stenosis with progression at L2-L3 compared to prior study, no abnormal enhancement-> no abnormalities at L5-S1 level suggestive of etiology for foot drop Neurology consult pending: appreciate recs PT/OT evaluations recommending return home when medically stable Recommend use of right foot brace given at prior facility Left gluteal mass Patient notes chronic mass (present for 4 months) that is tender when she is sitting on it Pelvis CT revealed thick walled fluid collection in left gluteus katelyn muscle measuring 10.5 x 6.7cm, presumed abscess and bilateral gluteal cellulitis L>R Initial leukocytosis resolved today and no s/s of infection Surgery consulted and do not recommend surgical intervention Orthopedics consulted: appreciate recs Started on Zosyn today Consider IR drainage pending ortho eval -> Eliquis on hold Asymptomatic bacteriuria Neurogenic bladder UA +leuk esterase, WBC, bacteria but patient asymptomatic Pelvis CT notes bladder wall thickening Urine culture prelim positive for Klebsiella-> history of Klebsiella outpatient about a week ago and patient notes she did not complete course of antibiotics due to diarrhea History of ESBL Klebsiella in urine Likely chronically colonized due to neurogenic bladder and self catheterization Continue Zosyn for presumed abscess as above and follow urine culture Continue oxybutynin for neurogenic bladder MS On teriflunomide at home Initially placed on solu-medrol 1g daily out of concern for MS flare but no abnormal enhancement on MRI-> appreciate neuro recs Continue tizanidine and gabapentin Home prednisone on hold while on solu-medrol Atrial fibrillation Continue metoprolol Eliquis on hold pending possible procedure for gluteal abscess above Hypertension Continue losartan Dyslipidemia Continue atorvastatin Depression Continue escitalopram TODD Continue ferrous sulfate DVT Prophylaxis: on Eliquis-> holding for possible IR drainage Code Status: FULL CODE PCP: Simi Hernandez Disposition: awaiting neuro and orthopedic consults, anticipate return home when medically stable Patient seen in collaboration with Dr. Armenta. Please see addendum. I spent a total of 60 minutes coordinating, documenting and providing care for this patient excluding time spent in the performance of separately billed services or time spent by another provider/QHP. Admission and Anticipated Discharge Date Admission Date: September 16, 2025 Supervising Physician Co-Signing Physician Notes Patient is seen and examined at bedside. States having right foot drop and also reports ongoing chronic left gluteal mass. On exam patient is thin, frail, chronic ill appearing, normocephalic atraumatic, EOMI, normal breath sounds, clear to auscultation, S1-S2,+ murmur, abdomen soft, nontender, normal bowel sounds+ baclofen pump,+ left gluteal mass noted soft, fluctuant, alert, awake, oriented, grossly moves all extremities,+ right foot drop. Patient is admitted for right foot drop, ambulatory dysfunction. Neurology evaluation pending. Lumbar imaging studies not contributory for foot drop. May need EMG as outpatient. Orthotics consulted for AFO brace. Left gluteal mass/? Abscess. Orthopedics consulted. Empirically on Zosyn. Eliquis held. I personally interviewed and examined the patient at bedside. I have reviewed the advanced practitioner's documentation on the date of service referred in note and agree with plan. Patient's care is coordinated with Sera BROWN. Please refer to the documentation above for details of patient's presentation and for discussion of other issues. I spent a total of27 minutes coordinating, documenting, and providing care for this patient excluding time spent in the performance of separately billed services or time spent by another provider/QHP. Subjective Patient seen resting in chair Cannot dorsiflex right foot but does not complain of any pain in RLE Notes tenderness in left gluteus when sitting Denies chest pain, SOB, abdominal pain, N/V, dysuria Review of Systems Review of Systems: All systems reviewed & are unremarkable except as noted in HPI & below Physical Exam Physical Exam: General/Psych: WD/WN, sitting up in chair, NAD, conversing easily, euthymic affect Head: normocephalic, atraumatic Eyes: normal inspection, PERRL, conjunctivae pink ENT: external ear and nose normal, oropharynx normal Neck: normal visual inspection, trachea midline Respiratory: normal respiratory effort, lungs clear to auscultation, no wheeze/rales/rhonchi, no accessory muscle use Cardiovascular: regular rate and rhythm, +murmur Extremities: no cyanosis or clubbing, normal peripheral pulses, no BLE edema Abdomen/GI: normal bowel sounds, soft, nontender Neurologic/MSK: A+Ox3, motor strength 5/5, moves all extremities, unable to dorsiflex right foot Skin: no rashes, normal color, warm and dry, mass at left gluteus Results & Data Results & Data Vital Signs (Past 12 Hours) Vital Signs Temp Pulse Resp BP Pulse Ox O2 Del Method 09/16/25 07:11 36.3 C L 85 16 129/82 95 Room Air Laboratory Results Short CBC 09/16/25 Range/Units 07:23 WBC 4.22 L D (4.8-10.8) K/ul Hgb 9.6 L (12.0-16.0) g/dl Hct 31.9 L (37.0-47.0) % Plt Count 313 (130-400) K/uL BMP 09/16/25 07:23 Sodium 140 Potassium 4.5 D Chloride 107 Carbon Dioxide 27 BUN 28 H Creatinine 0.87 Glucose 140 H Calcium 8.7 Urine 09/15/25 Range/Units 14:41 Urine Color Yellow Urine Appearance Clear (Clear) Urine pH 5.5 (4.5-7.5) Ur Specific [place] > 1.045 H (1.000-1.030) Urine Protein Negative (Negative) Urine Glucose (UA) Negative (Negative) I have independently reviewed and interpreted patient's labs including CBC and BMP Diagnostic Findings Lumbar Spine MRI 09/16/25 07:12 MR lumbar spine wo/w con CLINICAL HISTORY: 74 years-old Female with right foot drop. Acute on chronic low back pain with right lower family radicular symptoms COMPARISON: CT pelvis 09/15/2025, MRI lumbar spine December 27, 2018 TECHNIQUE: Multiplanar, multi sequence MRI of the lumbar spine was performed with and without intravenous contrast. FINDINGS: 31 degrees levoscoliosis measured from L1-L4. The vertebral body heights are normal. There is no T1 fracture line or marrow replacement process. The conus terminates at L1. The visualized spinal cord and cauda equina are normal. There is no paraspinal edema, mass, or prevertebral fluid collection. There are a few renal cysts measuring up to approximately 4 cm on the right. There is a large hiatal hernia. Artifact related to a battery pack within the left lower abdominal wall. Study is mildly motion degraded. Severe multilevel intervertebral disc space narrowing, spondylitic spurring and facet arthrosis. Trace fluid within the L2-L3 disc space is likely on a degenerative basis. No significant marrow edema or endplate erosions. Mild intermixed Modic degeneration is noted at several levels, most pronounced at L1-L2 and L2-L3 with mild related enhancement. Posterior disc osteophyte complex formation with ligamentum flavum thickening and advanced facet arthrosis in the lower thoracic spine redemonstrated. At T10- T11 there is moderate central canal stenosis with AP dimension of the thecal sac measuring 7 mm. Mild to moderate bilateral neural foraminal narrowing at this level. T12-L1: Posterior disc osteophyte complex is largest centrally. Ligamentum flavum thickening with moderate facet arthrosis. Flattening of the ventral thecal sac without significant central canal stenosis. The neural foramen are also patent. L1-L2: Posterior disc osteophyte complex. Ligamentum flavum thickening with moderate facet arthrosis.Mild central canal stenosis with AP dimension of the thecal sac measuring 9 mm. There is at least moderate narrowing of the lateral recesses. Mild left with moderate right neural foraminal narrowing is similar to prior. L2-L3: Severe intervertebral disc space narrowing. Small posterior disc osteophyte complex with moderate facet arthrosis. Mild central canal stenosis, AP dimension of the thecal sac measuring 9 mm. Moderate narrowing of the right lateral recess. The left neural foramen is patent. Moderate to severe right neural foraminal narrowing has worsened from prior. L3-L4: Moderate intervertebral disc space narrowing. Posterior disc osteophyte complex with ligamentum flavum thickening and advanced facet arthrosis. There is a round structure within the left paracentral space/left lateral recess on image 12 series 6 image 14 series 3 measuring 8 x 5 x 10 mm posterior to the L3 vertebral body, new from prior which appears to extend from the adjacent L3-L4 disc space. This may abut the adjacent left L4 nerve root causing at least mild left lateral recess narrowing. Moderate central canal stenosis with AP dimension of the thecal sac measuring 7 mm. The left neural foramen is patent. Mild right neural foraminal narrowing. L4-L5: Moderate intervertebral disc space narrowing. Small posterior disc osteophyte complex with moderate facet arthrosis. Central canal and right neuroforamen are patent. Moderate left lateral recess narrowing. Mild left neural foraminal stenosis is similar to prior. L5-S1: Small circumferential disc osteophyte complex with moderate facet arthrosis. Central canal and right neural foramen are patent. Minimal left neural foraminal stenosis. IMPRESSION: 1. No acute fracture, subluxation or significant marrow edema. 2. 10 mm disc extrusion versus sequestered disc fragment at L3-L4 as above contributes to cause moderate central canal stenosis at this level. 3. Multilevel neural foraminal stenosis as above with progression at L2-L3 compared to 12/27/2018. 4. Levoscoliosis. 5. No abnormal enhancement. ACT 112: Negative or not required by law. The above report was generated using voice recognition software. It may contain grammatical, syntax or spelling errors. Electronically signed by: Nasir Mccauley M.D. 09/16/2025 10:12 AM Medications Administered Current Inpatient Medications Acetaminophen (Acetaminophen 325 Mg Tab) 650 mg PO Q4H PRN PRN Reason: pain/fever Stop: 10/15/25 16:33 Al Hydrox/Mg Hydrox/Simethicone (Aluminum/Magnesium Susp 30 Ml Udc) 30 ml PO Q6H PRN PRN Reason: Dyspepsia Stop: 10/15/25 16:33 Apixaban (Apixaban 5 Mg Tablet) 5 mg PO BID [facility] Stop: 10/15/25 20:59 Last Admin: 09/15/25 20:44 Dose: 5 mg Atorvastatin Calcium (Atorvastatin 40 Mg Tab) 40 mg PO QAM [facility] Stop: 10/16/25 08:59 Last Admin: 09/16/25 08:38 Dose: 40 mg Escitalopram Oxalate (Escitalopram Oxalate 20 Mg Tab) 20 mg PO QAM [facility] Stop: 10/16/25 08:59 Last Admin: 09/16/25 08:39 Dose: 20 mg Gabapentin (Gabapentin 100 Mg Cap) 100 mg PO BID [facility] Stop: 10/15/25 20:59 Last Admin: 09/16/25 08:40 Dose: 100 mg Methylprednisolone 1,000 mg/ (Sodium Chloride) 266 mls @ 266 mls/hr IV DAILY [facility] Stop: 09/19/25 16:44 Last Infusion: 09/16/25 11:14 Dose: Infused Piperacillin Sod/Tazobactam Sod (Zosyn) 4.5 gm in 100 mls @ 25 mls/hr IV Q8H [facility]; Protocol Stop: 09/23/25 15:59 Losartan Potassium ([facility] Pot[facility] 50 Mg Tab) [facility] [place] Stop: 10/16/25 08:59 Last Admin: 09/16/25 08:39 Dose: 50 mg Magnesium Hydroxide (Magnesium Hydroxide Susp 30 Ml Udc) 30 ml PO Q6H PRN PRN Reason: Constipation Stop: 10/15/25 16:33 Melatonin (Melatonin 3 Mg Tab) 3 mg PO HS PRN PRN Reason: Insomnia Stop: 10/15/25 16:33 Last Admin: 09/15/25 20:55 Dose: 3 mg Metoprolol Succinate (Metoprolol Succ 25mg Ext Rel Tab) 25 mg PO BID [facility] Stop: 10/15/25 20:59 Last Admin: 09/16/25 08:39 Dose: 25 mg Oxybutynin Chloride (Oxybutynin Chloride Xl 5 Mg Tabcr) [facility] [place] Stop: 10/16/25 08:59 Last Admin: 09/16/25 08:40 Dose: 15 mg Pantoprazole Sodium (Pantoprazole 40 Mg Tab) 40 mg PO QAM [facility] Stop: 10/16/25 08:59 Last Admin: 09/16/25 08:39 Dose: 40 mg Polyethylene Glycol (Polyethylene (Miralax) 17 Gm Pack) 17 gm PO DAILY PRN PRN Reason: Constipation Stop: 10/15/25 16:33 Tizanidine HCl (Tizanidine Hcl 4 Mg Tablet) 4 mg PO Q6H PRN PRN Reason: Muscle Spasm Stop: 10/15/25 16:33 Last Admin: 09/16/25 13:00 Dose: 4 mg Vitamin D (Cholecalciferol 25 Mcg (1000 Units) Tab) 50 mcg PO QAM [facility] Stop: 10/16/25 08:59 Last Admin: 09/16/25 08:38 Dose: 50 mcg
--- NOTE | 2025-09-16 15:15 | Orthopedic Consultation ---
Date of Consultation September 16, 2025 Assessment & Plan (1) Foot drop, right: AFO brace when ambulatory Will need to follow-up with her neurologist in [place] May possibly need a neurology consult while in-house (2) Gluteal abscess: Will contact [facility] to notify them that Dr. Oneil/Andrew's patient is in house and the patient is requesting Dr. Oneil to continue care. Consult placed for interventional radiology to evaluate patient for possible ultrasound-guided or fluoroscopic aspiration of the left gluteal mass/abscess. If they are unable to do this due to the presence of her hemiarthroplasty on that side and due to her other comorbid issues she may need transfer to a tertiary care center for this procedure or possibly an open evacuation with irrigation debridement. Supervising Physician Co-Signing Physician Notes I, Dr. Alejandra, saw and examined the patient. I discussed the management with my PA. I reviewed my PAs note and agree with the documented findings and attest to completing the substantive portion (medical decision making)/ plan of care I developed. History of Present Illness Reason for Consultation: Left gluteal mass/abscess Requesting Physician: Spike Alejandra MD Attending Physician: Fernando Armenta MD History of Present Illness Patient is a 74-year-old female Is seen today for consultation of a left gluteal mass/abscess that she has had for the past few weeks. Patient has a h/o left hip [id number] underwent ORIF of her left hip fracture which subsequently failed. She had then undergone hemiarthroplasty 08/03/[address] Morales. Patient has been under the care of Dr. Oneil and would like him to continue care. Patient has a progressive Multiple sclerosis who is fairly debilitated from this. Mostly sedentary but does try to go to exercise class 3 times per week and use a stand-up walker. Patient has new onset of a right foot drop that she noticed starting on Tuesday. Evaluation in the emergency room was unremarkable f or laboratory findings. CT of the head was unremarkable. She reports that she went to [facility] emergency department on Tuesday. She states that they did no imaging, the ER doctor called some colleagues per her report and then recommended a foot brace is to prevent the foot drop. Her symptoms persisted prompting her to come back to [facility]. Additionally on September 09, 2025 patient was seen outpatient for some questionable generalized symptoms and potentially some weakness. Urine culture was sent and grew out Klebsiella that is pansensitive. She says she took 1 dose of the Keflex had 1 bout of diarrhea and subsequently has stopped the antibiotic. She denies any fever or chills, no new weakness other than the foot drop, no nausea, no vomiting, no abdominal pain. No other symptoms that could be attributable to a urinary tract infection. She does have chronic neurogenic bladder. She straight caths herself on a daily basis and as needed. Reviewing records seems like she has frequent "UTIs.". Again has had no symptoms relatable to UTI over the last 6 days since the urine culture was sent. Also denies any cough or cold symptoms. No chest pain, no shortness of breath. Patient follows with a neurologist in the [place] area. She does have an implanted baclofen pump. However she states that the pump is empty. She has not been able to find someone here in locally to refill the baclofen pump. She apparently has a previous history of osteomyelitis and pain management at [facility] is hesitant to refill it. They have tried oral baclofen without much success. Since the baclofen pump "ran dry" she has noticed a steady decline in her overall quality of life. The patient's stiffness, flexibility, chronic muscle spasms and mobility has significantly declined since the baclofen pump has been empty. Has not established with a local neurologist or explored options through [facility] pain management for local management of her baclofen pump. Allergies Allergy/AdvReac Type Severity Reaction Status Date / Time No Known Allergies Allergy Verified 02/05/25 11:22 Home Medications Medication Instructions Recorded Confirmed Type cholecalciferol (vitamin D3) 25 2,000 units PO QAM 09/18/18 09/15/25 History mcg (1,000 unit) capsule oxybutynin chloride 15 mg 15 mg PO QAM 09/18/18 09/15/25 History tablet,extended release 24 hr prednisone 10 mg tablet 10 mg PO QAM 09/18/18 09/15/25 History teriflunomide 14 mg tablet 14 mg PO QPM 05/13/22 09/15/25 History (Aubagio) doxycycline hyclate 50 mg capsule 50 mg PO Q2D Rosacea 08/10/22 09/15/25 History melatonin 3 mg tablet 3 mg PO HS 03/05/23 09/15/25 History apixaban 5 mg tablet (Eliquis) 5 mg PO BID 02/03/24 09/15/25 History atorvastatin 40 mg tablet 40 mg PO QAM 09/13/24 09/15/25 History metoprolol succinate 25 mg 37.5 mg (1.5 x 25 mg) PO BID #60 02/23/25 09/15/25 Rx tablet,extended release 24 hr tabs tizanidine 4 mg tablet (Zanaflex) 4 mg PO Q6H PRN Muscle Spasm #0 02/23/25 09/15/25 Rx tabs ferrous sulfate 325 mg (65 mg 325 mg PO QAM 03/11/25 09/15/25 History iron) tablet,delayed release L.acidop,casei,lactis,rham-B.lact,luis miguel 1 cap PO DAILY #30 caps 03/16/25 09/15/25 Rx 625 mg (10 billion cell) capsule (Advanced Probiotic) escitalopram oxalate 10 mg tablet 10 mg PO QAM 09/15/25 09/15/25 History pantoprazole 40 mg tablet,delayed 40 mg PO QAM 09/15/25 09/15/25 History release Patient History Medical History Adult failure to thrive Ambulatory dysfunction Generalized weakness Immunocompromised due to corticosteroids Non-ST elevation HI (NSTEMI) Hypomagnesemia Elevated lactic acid level Complicated UTI (urinary tract infection) Lower extremity cellulitis Septic shock Shock circulatory Contusion of face Head injury Fall Cellulitis Sepsis Osteoarthritis of knees, bilateral Knee pain Septic prepatellar bursitis Wound infection CLABSI (central line-associated bloodstream infection) Bacteremia Fungemia Myocardial strain Tachycardia Hypomagnesemia Diarrhea Acute deep vein thrombosis of left lower extremity Traumatic open wound of right lower leg Catheter-associated urinary tract infection Leg wound, right Sepsis Skin tear of left upper extremity Chronic refractory osteomyelitis of ankle Surgical wound, non healing Osteomyelitis of ankle Chronic ulcer of right foot Sepsis Paroxysmal atrial fibrillation Lower extremity edema Traumatic open wound of left lower leg with delayed healing Ulcer of right ankle Paroxysmal atrial fibrillation with RVR Hypotension Acute UTI Elevated lactic acid level Hypotension Elevated troponin I level Sepsis Elevated troponin Multiple sclerosis Sepsis Closed right scapular fracture Encounter for pre-operative examination UTI (urinary tract infection) History of supraventricular tachycardia GERD (gastroesophageal reflux disease) controlled, stable per pt Raynaud disease Osteoporosis Breast cancer Left (17 years ago) Gastric ulcer Osteoarthritis of right knee Cellulitis of right lower extremity Anemia Cellulitis Acute leg pain Fever History of recent hospitalization 09/2022 [facility] - sepsis History of blood transfusion Limb alert care status left arm Osteoarthritis of right shoulder History of GI bleed Upper GIB (2019) felt 2/2 NSAID use History of non-ST elevation myocardial infarction (NSTEMI) 06/2021 (had heart cath, no stents) Hx of gastric ulcer 02/2021 Anemia Hypertension controlled, stable per pt Surgical History Status post reverse total replacement of right shoulder (~04/2022) History of appendectomy S/P partial hysterectomy History of open reduction and internal fixation (ORIF) procedure "left hip" History of removal of Port-a-Cath (02/09/24) Mediport Removal(Right) - Tristin Lazo DO Port-A-Cath in place (09/29/23) A-Port Insertion, right internal jugular(Right) - Tristin Lazo DO S/p reverse total shoulder arthroplasty right: 05/25/22 LMA#4. No postop issues per anesthesia progress note. History of cardiac cath Cardiac cath (07/06/21; [facility]) > Right dominant coronary system. No evidence of aortic stenosis. Normal left ventricular filling pressures. Nonobstructive disease involving the ostial LAD. No evidence of acute coronary syndrome. Approximately 50% ostial stenosis of the LAD. There was some very mild disease at the ostium of the left circumflex. Recommendations: Medical management. History of esophagogastroduodenoscopy (EGD) History of colonoscopy History of tooth extraction Family History Mother Heart disorder Other No family history of adverse response to anesthesia Social History Smoking Status: Never smoker Tobacco Type: Cigarettes packs per day: 1; Cigarettes Per Day: stopped in 1977; Second Hand Exposure: No; Do You Dip or Chew Tobacco: No; Hx Alcohol Use: No Hx Substance Use: No Preferred Language: Indian Communication Ability: Effective Visual Impairment: No Limitations Hearing Ability: Use of Hearing Aid Desktop Architect Required: No Beliefs That Will Affect Care: None marital status: / Current Living Situation: Alone Current Living Situation Comment: Apartment current occupational status: retired How many Children do You have: 3 Other Information That Helps Us Care for You: No Feels Safe at Home: Yes Safety Concerns: Feels Safe At This Time Childhood Exposure to Second-Hand Smoke: Yes Diet: regular caffeine: Yes Assistive Devices: Walker and Wheelchair Review of Systems Review of Systems: All systems reviewed & are unremarkable except as noted in Subjective Physical Exam Physical Exam: Right lower extremity: Patient is unable to perform active straight leg raise test. She is unable to dorsi or plantarflex her foot and her right foot is in a plantarflexed position. She experiences a dull sensation with light palpation over the pads of her digits. She is able to move them. Forefoot and calf squeeze test are negative. Active knee flexion is to approximately 90 degrees. She has difficulty firing her quad. Her peripheral pulses are 1+. Left buttocks: Large fluctuant softball size mass over the gluteus katelyn that is tender to palpation. There is very mild erythema. There is no ecchymosis warmth or skin openings. Results & Data Vital Signs (Past 12 Hours) Vital Signs Temp Pulse Resp BP Pulse Ox O2 Del Method 09/16/25 15:12 36.4 C L 82 16 106/64 94 Room Air 09/16/25 07:11 36.3 C L 85 16 129/82 95 Room Air Diagnostic Findings Laboratory Results WBC 4.22 K/ul (4.8-10.8) L D 09/16/25 07:23 RBC 3.66 M/uL (4.20-5.40) L 09/16/25 07:23 Hgb 9.6 g/dl (12.0-16.0) L 09/16/25 07:23 POC Hgb 12.2 g/dl (12.0-16.0) 09/15/25 13:04 Hct 31.9 % (37.0-47.0) L 09/16/25 07:23 POC Hct 36 % (37-47) L 09/15/25 13:04 MCV 87.2 fL (80.0-100.0) 09/16/25 07:23 MCH 26.2 pg (25.0-34.0) 09/16/25 07:23 MCHC 30.1 g/dL (32.0-36.0) L 09/16/25 07:23 RDW Std Deviation 53.9 fL (36.4-46.3) H 09/16/25 07:23 RDW Coeff of Tiffanie 17.2 % (11.5-14.5) H 09/16/25 07:23 Plt Count 313 K/uL (130-400) 09/16/25 07:23 MPV 10.7 fL (9.4-12.4) 09/16/25 07:23 Immature Gran % (Auto) 0.2 % 09/15/25 13:00 Neut % (Auto) 90.7 % 09/15/25 13:00 Lymph % (Auto) 4.1 % 09/15/25 13:00 [place] % (Auto) 4.4 % 09/15/25 13:00 Eos % (Auto) 0.2 % 09/15/25 13:00 Baso % (Auto) 0.4 % 09/15/25 13:00 Neut # (Auto) 10.30 K/uL (1.40-6.50) H 09/15/25 13:00 Lymph # (Auto) 0.46 K/uL (1.20-3.40) L 09/15/25 13:00 [place] # (Auto) 0.50 K/uL (0.11-0.59) 09/15/25 13:00 Eos # (Auto) 0.02 K/uL (0.00-0.50) 09/15/25 13:00 Baso # (Auto) 0.05 K/uL (0.00-0.20) 09/15/25 13:00 Immature Gran # (Auto) 0.02 K/uL (0.01-0.20) 09/15/25 13:00 Toxic Vacuolation 2+ 09/15/25 13:00 POC Sodium 142 mmol/L (135-144) 09/15/25 13:04 Sodium 140 mmol/L (136-145) 09/16/25 07:23 POC Potassium 3.6 mmol/L (3.3-5.0) 09/15/25 13:04 Potassium 4.5 mmol/L (3.5-5.1) D 09/16/25 07:23 POC Chloride 103 mmol/L (101-112) 09/15/25 13:04 Chloride 107 mmol/L (98-107) 09/16/25 07:23 Carbon Dioxide 27 mmol/L (21-32) 09/16/25 07:23 POC Total CO2 31 mmol/L (24-31) 09/15/25 13:04 Anion Gap 6 (3-11) 09/16/25 07:23 POC Anion Gap 12.0 mmol/L (16-25) L 09/15/25 13:04 POC BUN 31 mg/dl (7-18) H 09/15/25 13:04 BUN 28 mg/dl (6-23) H 09/16/25 07:23 Creatinine 0.87 mg/dl (0.6-1.2) 09/16/25 07:23 POC Creatinine 0.9 mg/dl (0.6-1.3) 09/15/25 13:04 Est Cr Clr Drug Dosing 50.5 ml/min 09/16/25 07:23 eGFR 70.74 09/16/25 07:23 BUN/Creatinine Ratio 32.2 (10-20) H 09/16/25 07:23 Glucose 140 mg/dl (70-99(Fasting)) H 09/16/25 07:23 POC Glucose (other) 95 mg/dl (70-99) 09/15/25 13:04 Calcium 8.7 mg/dl (8.6-10.3) 09/16/25 07:23 POC Ioniz Calcium Michael 1.01 mmol/l (1.12-1.32) L 09/15/25 13:04 Total Bilirubin 0.3 mg/dl (0.2-1.0) 09/15/25 13:00 AST 18 U/L (13-39) 09/15/25 13:00 ALT 13 U/L (7-52) 09/15/25 13:00 Alkaline Phosphatase 62 U/L (34-104) 09/15/25 13:00 Total Protein 6.8 gm/dl (6.0-8.3) 09/15/25 13:00 Albumin 3.4 gm/dl (3.4-5.0) 09/15/25 13:00 Globulin 3.4 gm/dl (2.5-4.0) 09/15/25 13:00 Albumin/Globulin Ratio 1.0 (0.9-2) 09/15/25 13:00 Lipase 10 U/L (11-82) L 09/15/25 13:00 Urine Color Yellow 09/15/25 14:41 Urine Appearance Clear (Clear) 09/15/25 14:41 Urine pH 5.5 (4.5-7.5) 09/15/25 14:41 Ur Specific [place] > 1.045 (1.000-1.030) H 09/15/25 14:41 Urine Protein Negative (Negative) 09/15/25 14:41 Urine Glucose (UA) Negative (Negative) 09/15/25 14:41 Urine Ketones Negative (Negative) 09/15/25 14:41 Urine Blood Negative (Negative) 09/15/25 14:41 Urine Nitrite Negative (Negative) 09/15/25 14:41 Urine Bilirubin Negative (Negative) 09/15/25 14:41 Urine Urobilinogen Negative (Negative) 09/15/25 14:41 Ur Leukocyte Esterase 1+ (Negative) H 09/15/25 14:41 Urine WBC (Auto) 21-50 /hpf (0-5) H 09/15/25 14:41 Urine RBC (Auto) 0-2 /hpf (0-2) 09/15/25 14:41 U Hyaline Cast (Auto) 0-2 /lpf (0-2) 09/15/25 14:41 U Epithel Cells (Auto) 3-5 /hpf (0-2) H 09/15/25 14:41 Urine Bacteria (Auto) 4+ (None Seen) H 09/15/25 14:41 Urine Comment 09/15/25 14:41 Impressions Head CTA 09/15/25 12:30 CT ANGIOGRAM OF THE BRAIN COMBO; CT ANGIOGRAM OF THE NECK CLINICAL HISTORY: Right lower extremity weakness. COMPARISON STUDY: CT of the brain dated 03/11/2025. TECHNIQUE: Unenhanced axial CT scan of the brain is performed. Subsequently, following the IV administration of 112 of Optiray 320, CT angiogram of the head and neck was performed from the aortic arch to the vertex. Images are reviewed in the axial, sagittal, and coronal planes. 3-D MIPS images are created and assessed. IV contrast was administered without complication. All measurements were calculated based on NASCET criteria. A dose lowering technique was utilized adhering to the principles of ALARA. CT DOSE: 1280.79 mGy.cm FINDINGS: Brain parenchyma: There is age-related involutional change noting moderate confluent subcortical and periventricular microangiopathic disease. There is no hemorrhage, mass effect, or evidence of acute territorial ischemia by CT criteria. There is no evidence of enhancing mass lesion on the angiogram phase images. The ventricles, sulci, and cisterns are prominent secondary to involutional change. Pulido-white matter differentiation is preserved. No extra- axial fluid collection is seen. Thoracic aorta: There is atherosclerotic calcification of the thoracic aorta. Visualized portions of the thoracic aorta are normal in caliber. The aortic arch demonstrates standard 3-vessel anatomy. Right carotid arterial system: The right common carotid artery is widely patent, as are the right internal and external carotid arteries. Calcified plaque is seen in the carotid bulb. Left carotid arterial system: The left common carotid artery is widely patent, as are the left internal and external carotid arteries. Calcified plaque is seen in the carotid bulb. Vertebral arteries: Widely patent bilaterally noting right sided dominance. Subclavian arteries: Widely patent bilaterally Intracranial vasculature: There is atherosclerotic calcification of the cavernous carotid arteries. The internal carotid arteries are patent at the skull base, as are the anterior and middle cerebral arteries bilaterally. The vertebrobasilar system and posterior cerebral arteries are widely patent. The right vertebral artery is dominant. There is origin of the left posterior cerebral artery. A posterior communicating artery is seen on the right. There is no aneurysm, high-grade stenosis, or focal vessel cut off seen throughout the intracranial circulation. Jugular veins: Patent bilaterally. Dural sinuses: Patent. Lung apices: Partially visualized upper lobe lung parenchyma appears clear. Soft tissues: The visualized pharyngeal soft tissues are normal in appearance noting angiographic phase technique. The oropharyngeal airway appears widely patent. The thyroid gland is atrophic and heterogeneous. The salivary are normal in appearance. No cervical lymphadenopathy is seen. Skeletal structures: The skeletal structures are osteopenic. The calvarium appears intact. The cervical spine is maintained noting advanced multilevel spondylosis. Orbits: The bony orbits are intact. Orbital contents are normal as visualized noting bilateral ocular lens implants. Sinuses and mastoids: There is moderate mucosal thickening in the left sphenoid sinus. The remaining paranasal sinuses are clear. The mastoid air cells are well pneumatized. IMPRESSION: 1. There is no hemorrhage, mass effect, or evidence of acute territorial ischemia by CT criteria. 2. Unremarkable CT angiogram of the brain. 3. Unremarkable CT angiogram of the neck. ACT 112: Negative or not required by law. Electronically signed by: Germán Villa M.D. 09/15/2025 1:36 PM Neck CTA 09/15/25 12:30 CT ANGIOGRAM OF THE BRAIN COMBO; CT ANGIOGRAM OF THE NECK CLINICAL HISTORY: Right lower extremity weakness. COMPARISON STUDY: CT of the brain dated 03/11/2025. TECHNIQUE: Unenhanced axial CT scan of the brain is performed. Subsequently, f ollowing the IV administration of 112 of Optiray 320, CT angiogram of the head and neck was performed from the aortic arch to the vertex. Images are reviewed in the axial, sagittal, and coronal planes. 3-D MIPS images are created and assessed. IV contrast was administered without complication. All measurements were calculated based on NASCET criteria. A dose lowering technique was utilized adhering to the principles of ALARA. CT DOSE: 1280.79 mGy.cm FINDINGS: Brain parenchyma: There is age-related involutional change noting moderate confluent subcortical and periventricular microangiopathic disease. There is no hemorrhage, mass effect, or evidence of acute territorial ischemia by CT criteria. There is no evidence of enhancing mass lesion on the angiogram phase images. The ventricles, sulci, and cisterns are prominent secondary to involutional change. Pulido-white matter differentiation is preserved. No extra- axial fluid collection is seen. Thoracic aorta: There is atherosclerotic calcification of the thoracic aorta. Visualized portions of the thoracic aorta are normal in caliber. The aortic arch demonstrates standard 3-vessel anatomy. Right carotid arterial system: The right common carotid artery is widely patent, as are the right internal and external carotid arteries. Calcified plaque is seen in the carotid bulb. Left carotid arterial system: The left common carotid artery is widely patent, as are the left internal and external carotid arteries. Calcified plaque is seen in the carotid bulb. Vertebral arteries: Widely patent bilaterally noting right sided dominance. Subclavian arteries: Widely patent bilaterally Intracranial vasculature: There is atherosclerotic calcification of the cavernous carotid arteries. The internal carotid arteries are patent at the skull base, as are the anterior and middle cerebral arteries bilaterally. The vertebrobasilar system and posterior cerebral arteries are widely patent. The right vertebral artery is dominant. There is origin of the left posterior cerebral artery. A posterior communicating artery is seen on the right. There is no aneurysm, high-grade stenosis, or focal vessel cut off seen throughout the intracranial circulation. Jugular veins: Patent bilaterally. Dural sinuses: Patent. Lung apices: Partially visualized upper lobe lung parenchyma appears clear. Soft tissues: The visualized pharyngeal soft tissues are normal in appearance noting angiographic phase technique. The oropharyngeal airway appears widely patent. The thyroid gland is atrophic and heterogeneous. The salivary are normal in appearance. No cervical lymphadenopathy is seen. Skeletal structures: The skeletal structures are osteopenic. The calvarium appears intact. The cervical spine is maintained noting advanced multilevel spondylosis. Orbits: The bony orbits are intact. Orbital contents are normal as visualized noting bilateral ocular lens implants. Sinuses and mastoids: There is moderate mucosal thickening in the left sphenoid sinus. The remaining paranasal sinuses are clear. The mastoid air cells are well pneumatized. IMPRESSION: 1. There is no hemorrhage, mass effect, or evidence of acute territorial ischemia by CT criteria. 2. Unremarkable CT angiogram of the brain. 3. Unremarkable CT angiogram of the neck. ACT 112: Negative or not required by law. Electronically signed by: Germán Villa M.D. 09/15/2025 1:[address] 09/15/25 16:56 Exam(s): CT PELVIS With Contrast IV Amt: 90 ml optiray 320 EXAM: CT Pelvis With Intravenous Contrast CLINICAL HISTORY: Reason for exam: Gluteal mass, inguinal adenopathy. TECHNIQUE: Axial computed tomography images of the pelvis with intravenous contrast. CTDI is 13.13 mGy and DLP is 417.46 mGy-cm. Automated exposure control was utilized for the study. A dose lowering technique was utilized adhering to the principles of ALARA. CONTRAST: Patient received 90 ml optiray 320 of IV contrast COMPARISON: 10/01/2024 FINDINGS: Medication pump implanted in the left abdominal wall with epidural catheter extending into the thoracic spinal canal. Visualized bowel-gas pattern is nonobstructive. There is moderate stool in the colon. There is atherosclerosis of the lower visualized aorta and the iliac arteries. There is no aneurysm of the visualized lower aorta. There is no adenopathy. There is trace free pelvic fluid. There is no free air. There is contrast within the urinary bladder. Numerous small bladder diverticula are present. There is a small volume of bladder gas suggesting recent instrumentation. Bladder wall is thickened. Uterus is not visualized and is presumed surgically absent. Bones are demineralized. There is disc and facet degeneration in the visualized lumbar spine. There is an old sacral fracture of the S3 level. There is an old right pubic bone fracture. A left hip hemiarthroplasty is in place. There is a thick-walled collection within the left gluteus katelyn muscle measuring 10.5 x 6.7 cm, abutting the left ischial tuberosity. There is subcutaneous stranding and skin thickening in the bilateral gluteal regions. Incidentally noted intramuscular lipoma in the right adductor compartment. There is a stable fat containing left-sided spigelian hernia. IMPRESSION: 1. Thick-walled fluid collection, presumed abscess, in the left gluteus katelyn muscle measuring 10.5 x 6.7 cm. This abuts the cortical margin of the left ischial tuberosity. 2. Bilateral gluteal cellulitis, [id number]. 3. Bladder wall thickening. Small volume of gas in the bladder presumed related to recent instrumentation. Correlate with urinalysis to assess for cystitis. Electronically signed by: Osorio Benítez M.D. 09/15/25 23:53 PM Lumbar Spine MRI 09/16/25 07:12 MR lumbar spine wo/w con CLINICAL HISTORY: 74 years-old Female with right foot drop. Acute on chronic low back pain with right lower family radicular symptoms COMPARISON: CT pelvis 09/15/2025, MRI lumbar spine December 27, 2018 TECHNIQUE: Multiplanar, multi sequence MRI of the lumbar spine was performed w ith and without intravenous contrast. FINDINGS: 31 degrees levoscoliosis measured from L1-L4. The vertebral body heights are normal. There is no T1 fracture line or marrow replacement process. The conus terminates at L1. The visualized spinal cord and cauda equina are normal. There is no paraspinal edema, mass, or prevertebral fluid collection. There are a few renal cysts measuring up to approximately 4 cm on the right. There is a large hiatal hernia. Artifact related to a battery pack within the left lower abdominal wall. Study is mildly motion degraded. Severe multilevel interver tebral disc space narrowing, spondylitic spurring and facet arthrosis. Trace fluid within the L2-L3 disc space is likely on a degenerative basis. No significant marrow edema or endplate erosions. Mild intermixed Modic degeneration is noted at several levels, most pronounced at L1-L2 and L2-L3 with mild related enhancement. Posterior disc osteophyte complex formation with ligamentum flavum thickening and advanced facet arthrosis in the lower thoracic spine redemonstrated. At T10- T11 there is moderate central canal stenosis with AP dimension of the thecal sac measuring 7 mm. Mild to moderate bilateral neural foraminal narrowing at this level. T12-L1: Posterior disc osteophyte complex is largest centrally. Ligamentum flavum thickening with moderate facet arthrosis. Flattening of the ventral thecal sac without significant central canal stenosis. The neural foramen are also patent. L1-L2: Posterior disc osteophyte complex. Ligamentum flavum thickening with moderate facet arthrosis.Mild central canal stenosis with AP dimension of the thecal sac measuring 9 mm. There is at least moderate narrowing of the lateral recesses. Mild left with moderate right neural foraminal narrowing is similar to prior. L2-L3: Severe intervertebral disc space narrowing. Small posterior disc osteophyte complex with moderate facet arthrosis. Mild central canal stenosis, AP dimension of the thecal sac measuring 9 mm. Moderate narrowing of the right lateral recess. The left neural foramen is patent. Moderate to severe right neural foraminal narrowing has worsened from prior. L3-L4: Moderate intervertebral disc space narrowing. Posterior disc osteophyte complex with ligamentum flavum thickening and advanced facet arthrosis. There is a round structure within the left paracentral space/left lateral recess on image 12 series 6 image 14 series 3 measuring 8 x 5 x 10 mm posterior to the L3 vertebral body, new from prior which appears to extend from the adjacent L3-L4 disc space. This may abut the adjacent left L4 nerve root causing at least mild left lateral recess narrowing. Moderate central canal stenosis with AP dimension of the thecal sac measuring 7 mm. The left neural foramen is patent. Mild right neural foraminal narrowing. L4-L5: Moderate intervertebral disc space narrowing. Small posterior disc osteophyte complex with moderate facet arthrosis. Central canal and right julio césar roforamen are patent. Moderate left lateral recess narrowing. Mild left neural foraminal stenosis is similar to prior. L5-S1: Small circumferential disc osteophyte complex with moderate facet arthr osis. Central canal and right neural foramen are patent. Minimal left neural foraminal stenosis. IMPRESSION: 1. No acute fracture, subluxation or significant marrow edema. 2. 10 mm disc extrusion versus sequestered disc fragment at L3-L4 as above contributes to cause moderate central canal stenosis at this level. 3. Multilevel neural foraminal stenosis as above with progression at L2-L3 compared to 12/27/2018. 4. Levoscoliosis. 5. No abnormal enhancement. ACT 112: Negative or not required by law. The above report was generated using voice recognition software. It may contain grammatical, syntax or spelling errors. Electronically signed by: Nasir Mccauley M.D. 09/16/2025 10:12 AM
[2025-09-16] MEDS: PIPERACILLIN/TAZOBACTAM 4.5 GM/100 ML BAG IV SCH (15:58)
[2025-09-16] MEDS: METOPROLOL SUCC 25MG EXT REL TAB PO SCH (19:50)
[2025-09-16] MEDS ORDERED: METOPROLOL SUCC 25MG EXT REL TAB PO SCH (21:00)
[2025-09-17 06:54] LABS: Hematocrit (blood only) 30.3 % (37.0-47.0); Hemoglobin 9.3 g/dl (12.0-16.0); Mean Corpuscular Hemoglobin 26.5 pg (25.0-34.0); Mean Corpuscular Volume 86.3 fL (80.0-100.0); Platelet Count 287 K/uL (130-400); RDW Standard Deviation 54.2 fL (36.4-46.3); Red Blood Count 3.51 M/uL (4.20-5.40); White Blood Count 8.27 K/ul (4.8-10.8)
[2025-09-17 07:18] LABS: Anion Gap 6.0 (3-11); Blood Urea Nitrogen 34.0 mg/dl (6-23); Calcium 8.7 mg/dl (8.6-10.3); Carbon Dioxide 28.0 mmol/L (21-32); Chloride 106.0 mmol/L (98-107); Creatinine Clr Calc Pharmacy 43.5 ml/min; Glucose 128.0 mg/dl (70-99(Fasting)); Potassium 4.1 mmol/L (3.5-5.1); Sodium 140.0 mmol/L (136-145)
--- NOTE | 2025-09-17 08:08 | Hospitalist Progress Note ---
Date of Service September 17, 2025 Assessment & Plan (1) Foot drop, right: (2) Chronic progressive multiple sclerosis: (3) Gluteal abscess: (4) Asymptomatic bacteriuria: (5) Neurogenic bladder: (6) Paroxysmal atrial fibrillation: (7) Hypertension: (8) Dyslipidemia: (9) Depression: Plan 74 year old female with PMH significant for CAD, HTN, dyslipidemia, aortic valve stenosis, PAF, history of SVT, chronic DVT, MS, neurogenic bladder, rosacea, anemia of chronic disease, depression, chronic venous insufficiency, and history of osteomyelitis who presented to the ED on 09/15/2025 with right foot drop. Right foot drop Patient presenting with inability to dorsiflex right foot Head and neck CTA negative Lumbar MRI revealed 10mm disc extrusion vs sequestered disc fragment at L3-L4 with moderate central canal stenosis, multilevel neural foraminal stenosis with progression at L2-L3 compared to prior study, no abnormal enhancement-> no abnormalities at L5-S1 level suggestive of etiology for foot drop Neurology consulted, discussed with Dr Forde via phone today, no concern for MS flare, recommending PT/OT eval PT/OT evaluations recommending return home when medically stable Recommend use of right foot brace given at prior facility Consider outpatient EMG Left gluteal mass Patient notes chronic mass (present for 4 months) that is tender when she is sitting on it Pelvis CT revealed thick walled fluid collection in left gluteus katelyn muscle measuring 10.5 x 6.7cm, presumed abscess and bilateral gluteal cellulitis L>R Initial leukocytosis resolved and no s/s of infection Started on Zosyn today IR drainage planned for Orthopedics will follow up outpatient Asymptomatic bacteriuria Neurogenic bladder UA +leuk esterase, WBC, bacteria but patient asymptomatic Pelvis CT notes bladder wall thickening Urine culture positive for pansensitive Klebsiella Likely chronically colonized due to neurogenic bladder and self catheterization Continue Zosyn for presumed abscess as above Continue oxybutynin for neurogenic bladder MS Follows with [facility] but exploring [facility] for baclofen pump management options (pump is currently filled with normal saline) On teriflunomide at home Initially placed on solu-medrol 1g daily out of concern for MS flare but no abnormal enhancement on MRI-> resume home oral dose Continue tizanidine PRN Atrial fibrillation, history of SVT Chronic DVT Eliquis on hold for IR procedure on Continue metoprolol Hypertension Continue losartan Dyslipidemia Continue atorvastatin Depression Continue escitalopram DVT Prophylaxis: SQ Heparin-> Eliquis on hold for IR procedure Code Status: FULL CODE PCP: Simi Hernandez Disposition: anticipate DC to home with services after drain placement Patient seen in collaboration with Dr. Armenta. Please see addendum. I spent a total of 60 minutes coordinating, documenting and providing care for this patient excluding time spent in the performance of separately billed services or time spent by another provider/QHP. Admission and Anticipated Discharge Date Admission Date: September 16, 2025 Supervising Physician Co-Signing Physician Notes Patient is seen and examined at bedside. Persistent right foot drop. On exam patient is thin, frail, chronic ill appearing, normocephalic atraumatic, EOMI, normal breath sounds, clear to auscultation, S1-S2,+ murmur, abdomen soft, nontender, normal bowel sounds+ baclofen pump,+ left gluteal mass noted soft, fluctuant, alert, awake, oriented, grossly moves all extremities,+ right foot drop. Patient is admitted for right foot drop, ambulatory dysfunction. Appreciate neurology input. May need EMG as outpatient. Ankle brace to be brought by family today. PT OT as able. Left gluteal mass/? Abscess. Empirically on Zosyn. Eliquis held. IR plans to drain likely on . I personally interviewed and examined the patient at bedside. I have reviewed the advanced practitioner's documentation on the date of service referred in note and agree with plan. Patient's care is coordinated with Sera BROWN. Please refer to the documentation above for details of patient's presentation and for discussion of other issues. I spent a total of22 minutes coordinating, documenting, and providing care for this patient excluding time spent in the performance of separately billed services or time spent by another provider/QHP. Subjective Patient seen resting in bed Reports foot drop is the same today Denies pain, decreased sensation, numbness of right foot Reports tenderness at left gluteus Denies chest pain, SOB, abdominal pain, N/V/D Review of Systems Review of Systems: All systems reviewed & are unremarkable except as noted in HPI & below Physical Exam Physical Exam: General/Psych: WD/WN, laying in bed, NAD, conversing easily, euthymic affect Head: normocephalic, atraumatic Eyes: normal inspection, PERRL, conjunctivae pink ENT: external ear and nose normal, oropharynx normal Neck: normal visual inspection, trachea midline Respiratory: normal respiratory effort, lungs clear to auscultation, no wheeze/rales/rhonchi, no accessory muscle use Cardiovascular: regular rate and rhythm, +murmur Extremities: no cyanosis or clubbing, normal peripheral pulses, no BLE edema Abdomen/GI: normal bowel sounds, soft, nontender Neurologic/MSK: A+Ox3, motor strength 5/5, moves all extremities, unable to dorsiflex right foot Skin: no rashes, normal color, warm and dry, fluctuant mass at left gluteus Results & Data Results & Data Vital Signs (Past 12 Hours) Vital Signs Temp Pulse Resp BP Pulse Ox O2 Del Method 09/16/25 23:39 36.8 C 76 16 100/65 96 Room Air 09/16/25 22:03 Room Air Laboratory Results Short CBC 09/16/25 09/17/25 Range/Units 07:23 06:25 WBC 4.22 L D 8.27 (4.8-10.8) K/ul Hgb 9.6 L 9.3 L (12.0-16.0) g/dl Hct 31.9 L 30.3 L (37.0-47.0) % Plt Count 313 287 (130-400) K/uL BMP 09/16/25 09/17/25 07:23 06:25 Sodium 140 140 Potassium 4.5 D 4.1 Chloride 107 106 Carbon Dioxide 27 28 BUN 28 H 34 H Creatinine 0.87 1.01 Glucose 140 H 128 H Calcium 8.7 8.7 I have independently reviewed and interpreted patient's labs including CBC and BMP. Medications Administered Current Inpatient Medications Acetaminophen (Acetaminophen 325 Mg Tab) 650 mg PO Q4H PRN PRN Reason: pain/fever Stop: 10/15/25 16:33 Al Hydrox/Mg Hydrox/Simethicone (Aluminum/Magnesium Susp 30 Ml Udc) 30 ml PO Q6H PRN PRN Reason: Dyspepsia Stop: 10/15/25 16:33 Apixaban (Apixaban 5 Mg Tablet) 5 mg PO BID MICHELLE Stop: 10/15/25 20:59 Last Admin: 09/15/25 20:44 Dose: 5 mg Atorvastatin Calcium (Atorvastatin 40 Mg Tab) 40 mg PO QAM [facility] Stop: 10/16/25 08:59 Last Admin: 09/17/25 08:15 Dose: 40 mg Escitalopram Oxalate (Escitalopram Oxalate 20 Mg Tab) 20 mg PO QAM MICHELLE Stop: 10/17/25 08:59 Last Admin: 09/17/25 08:16 Dose: 20 mg Ferrous Sulfate (Ferrous Sulfate 325 Mg Tab) 325 mg PO QAM [facility]HEL[facility] Stop: 10/17/25 08:59 Last Admin: 09/17/25 08:14 Dose: 325 mg Gabapentin (Gabapentin 100 Mg Cap) 100 mg PO BID [facility] Stop: 10/15/25 20:59 Last Admin: 09/17/25 08:16 Dose: 100 mg Heparin Sodium (Porcine) (Heparin Sod 5,000 Unit/0.5 Ml Vial) 5,000 units SQ Q12 MICHELLE Stop: 09/18/25 21:01 Last Admin: 09/17/25 09:11 Dose: 5,000 units Methylprednisolone 1,000 mg/ (Sodium Chloride) 266 mls @ 266 mls/hr IV DAILY [facility] Stop: 09/19/25 16:44 Last Infusion: 09/17/25 11:31 Dose: Infused Piperacillin Sod/Tazobactam Sod (Zosyn) 4.5 gm in 100 mls @ 25 mls/hr IV Q8H [facility]; Protocol Stop: 09/23/25 15:59 Last Admin: 09/17/25 08:19 Dose: 25 mls/hr Lactobacillus Acidophilus (Advanced Probiotic 625 Mg Capsule) 625 mg PO DAILY [facility] Stop: 10/17/25 08:59 Last Admin: 09/17/25 08:14 Dose: 625 mg Losartan Potassium (Losartan Potassium 50 Mg Tab) 50 mg PO QAM [facility] Stop: 10/17/25 08:59 Last Admin: 09/17/25 08:16 Dose: 50 mg Magnesium Hydroxide (Magnesium Hydroxide Susp 30 Ml Udc) 30 ml PO Q6H PRN PRN Reason: Constipation Stop: 10/15/25 16:33 Melatonin (Melatonin 3 Mg Tab) 3 mg PO HS PRN PRN Reason: Insomnia Stop: 10/15/25 16:33 Last Admin: 09/16/25 21:01 Dose: 3 mg Metoprolol Succinate (Metoprolol Succ 25mg Ext Rel Tab) 25 mg PO BID [facility] Stop: 10/16/25 20:59 Last Admin: 09/17/25 08:13 Dose: 25 mg Oxybutynin Chloride (Oxybutynin Chloride Xl 5 Mg Tabcr) 15 mg PO [facility] Stop: 10/16/25 08:59 Last Admin: 09/17/25 08:15 Dose: 15 mg Pantoprazole Sodium (Pantoprazole 40 Mg Tab) 40 mg PO [facility] Stop: 10/16/25 08:59 Last Admin: 09/17/25 08:16 Dose: 40 mg Polyethylene Glycol (Polyethylene (Miralax) 17 Gm Pack) 17 gm PO DAILY PRN PRN Reason: Constipation Stop: 10/15/25 16:33 Tizanidine HCl (Tizanidine Hcl 4 Mg Tablet) 4 mg PO Q6H PRN PRN Reason: Muscle Spasm Stop: 10/15/25 16:33 Last Admin: 09/16/25 19:51 Dose: 4 mg Vitamin D (Cholecalciferol 25 Mcg (1000 Units) Tab) 50 mcg PO [facility] Stop: 10/16/25 08:59 Last Admin: 09/17/25 08:15 Dose: 50 mcg (7) Hypertension Hypertension type: primary hypertension Qualified Code(s): I10 - Essential (primary) hypertension
[2025-09-17] MEDS: ADVANCED PROBIOTIC 625 MG CAPSULE PO SCH (08:14)
[2025-09-17] MEDS: FERROUS SULFATE 325 MG TAB PO SCH (08:14)
[2025-09-17] MEDS: ESCITALOPRAM OXALATE 20 MG TAB PO SCH (08:16)
[2025-09-17] MEDS: LOSARTAN POTASSIUM 50 MG TAB PO SCH (08:16)
--- NOTE | 2025-09-17 08:51 | Pain Management Consultation ---
Date of Consultation September 17, 2025 Assessment & Plan (1) Presence of intrathecal pump: (2) Gluteal abscess: (3) Foot drop, right: (4) Asymptomatic bacteriuria: (5) Chronic progressive multiple sclerosis: (6) Non-healing wound of left lower extremity: (7) Weakness: Plan 1. The intrathecal pump was interrogated and did not stall during MRI. It is still running Normal Saline at minimal rate. 2. I did explain to the patient that the pump did not "run dry" but rather the normal saline is running through the pump. [facility] finds it too high risk to continue intrathecal Baclofen due to the patient being chronically infected. She is considering transferring pump care to [facility] but travel is a concern. History of Present Illness Reason for Consultation: Interrogation of intrathecal pump post MRI Attending Physician: Fernando Armenta MD History of Present Illness Mrs. Shelby is a 74-year-old female that is well-known to the [facility] pain service for multiple sclerosis and prior management of intrathecal baclofen pump. She has been admitted to the [facility] for new right foot drop x 5 days. She denies any pain associated with new right foot drop. No low back pain or radicular symptoms down the legs. Possible MS flare vs infection vs lumbar etiology. She does see [facility] for neurology care. She had a lumbar spine MRI yesterday which shows a disc extrusion versus fragment at L3-L4 towards the left. She is on a trial of Solu-Medrol IV. Antibiotics are being held as she is thought to be chronically colonized. She was found to have a presumed abscess in the left gluteus katelyn muscle. As the patient is chronically infected and was on minimal amounts of intrathecal baclofen, it was decided to switch her to oral muscle relaxers and normal saline was placed in the pump. She has been on minimal rate of baclofen since 2022 and transitioned to normal saline on 12/30/2024. Case discussed with Dr. Hannah Fishman Allergies Allergy/AdvReac Type Severity Reaction Status Date / Time No Known Allergies Allergy Verified 02/05/25 11:22 Home Medications Medication Instructions Recorded Confirmed Type cholecalciferol (vitamin D3) 25 2,000 units PO QAM 09/18/18 09/15/25 History mcg (1,000 unit) capsule oxybutynin chloride 15 mg 15 mg PO QAM 09/18/18 09/15/25 History tablet,extended release 24 hr prednisone 10 mg tablet 10 mg PO QAM 09/18/18 09/15/25 History teriflunomide 14 mg tablet 14 mg PO QPM 05/13/22 09/15/25 History (Aubagio) doxycycline hyclate 50 mg capsule 50 mg PO Q2D Rosacea 08/10/22 09/15/25 History melatonin 3 mg tablet 3 mg PO HS 03/05/23 09/15/25 History apixaban 5 mg tablet (Eliquis) 5 mg PO BID 02/03/24 09/15/25 History atorvastatin 40 mg tablet 40 mg PO QAM 09/13/24 09/15/25 History metoprolol succinate 25 mg 37.5 mg (1.5 x 25 mg) PO BID #60 02/23/25 09/15/25 Rx tablet,extended release 24 hr tabs tizanidine 4 mg tablet (Zanaflex) 4 mg PO Q6H PRN Muscle Spasm #0 02/23/25 09/15/25 Rx tabs ferrous sulfate 325 mg (65 mg 325 mg PO QAM 03/11/25 09/15/25 History iron) tablet,delayed release L.acidop,casei,lactis,rham-B.lact,luis miguel 1 cap PO DAILY #30 caps 03/16/25 09/15/25 Rx 625 mg (10 billion cell) capsule (Advanced Probiotic) escitalopram oxalate 10 mg tablet 10 mg PO QAM 09/15/25 09/15/25 History pantoprazole 40 mg tablet,delayed 40 mg PO QAM 09/15/25 09/15/25 History release Patient History Medical History Adult failure to thrive Ambulatory dysfunction Generalized weakness Immunocompromised due to corticosteroids Non-ST elevation [place] (NSTEMI) Hypomagnesemia Elevated lactic acid level Complicated UTI (urinary tract infection) Lower extremity cellulitis Septic shock Shock circulatory Contusion of face Head injury Fall Cellulitis Sepsis Osteoarthritis of knees, bilateral Knee pain Septic prepatellar bursitis Wound infection CLABSI (central line-associated bloodstream infection) Bacteremia Fungemia Myocardial strain Tachycardia Hypomagnesemia Diarrhea Acute deep vein thrombosis of left lower extremity Traumatic open wound of right lower leg Catheter-associated urinary tract infection Leg wound, right Sepsis Skin tear of left upper extremity Chronic refractory osteomyelitis of ankle Surgical wound, non healing Osteomyelitis of ankle Chronic ulcer of right foot Sepsis Paroxysmal atrial fibrillation Lower extremity edema Traumatic open wound of left lower leg with delayed healing Ulcer of right ankle Paroxysmal atrial fibrillation with RVR Hypotension Acute UTI Elevated lactic acid level Hypotension Elevated troponin I level Sepsis Elevated troponin Multiple sclerosis Sepsis Closed right scapular fracture Encounter for pre-operative examination UTI (urinary tract infection) History of supraventricular tachycardia GERD (gastroesophageal reflux disease) controlled, stable per pt Raynaud disease Osteoporosis Breast cancer Left (17 years ago) Gastric ulcer Osteoarthritis of right knee Cellulitis of right lower extremity Anemia Cellulitis Acute leg pain Fever History of recent hospitalization 09/2022 [facility] - sepsis History of blood transfusion Limb alert care status left arm Osteoarthritis of right shoulder History of GI bleed Upper GIB (2019) felt 2/2 NSAID use History of non-ST elevation myocardial infarction (NSTEMI) 06/2021 (had heart cath, no stents) Hx of gastric ulcer 02/2021 Anemia Hypertension controlled, stable per pt Surgical History (Updated 09/17/25 @ 08:47 by Beatrice Goetz PA-C) Status post reverse total replacement of right shoulder (~04/2022) History of appendectomy S/P partial hysterectomy History of open reduction and internal fixation (ORIF) procedure "left hip" History of removal of Port-a-Cath (02/09/24) Mediport Removal(Right) - Tristin Lazo DO Port-A-Cath in place (09/29/23) A-Port Insertion, right internal jugular(Right) - Tristin Lazo DO S/p reverse total shoulder arthroplasty right: 05/25/22 LMA#4. No postop issues per anesthesia progress note. History of cardiac cath Cardiac cath (07/06/21; [facility]) > Right dominant coronary system. No evidence of aortic stenosis. Normal left ventricular filling pressures. Nonobstructive disease involving the ostial LAD. No evidence of acute coronary syndrome. Approximately 50% ostial stenosis of the LAD. There was some very mild disease at the ostium of the left circumflex. Recommendations: Medical management. History of esophagogastroduodenoscopy (EGD) History of colonoscopy History of tooth extraction Family History Mother Heart disorder Other No family history of adverse response to anesthesia Social History Smoking Status: Never smoker Tobacco Type: Cigarettes packs per day: 1; Cigarettes Per Day: stopped in 1977; Second Hand Exposure: No; Do You Dip or Chew Tobacco: No; Hx Alcohol Use: No Hx Substance Use: No Preferred Language: Portuguese Communication Ability: Effective Visual Impairment: No Limitations Hearing Ability: Use of Hearing Aid Water Quality Tester Required: No Beliefs That Will Affect Care: None marital status: / Current Living Situation: Alone Current Living Situation Comment: Apartment current occupational status: retired How many Children do You have: 3 Other Information That Helps Us Care for You: No Feels Safe at Home: Yes Safety Concerns: Feels Safe At This Time Childhood Exposure to Second-Hand Smoke: Yes Diet: regular caffeine: Yes Assistive Devices: Walker and Wheelchair Physical Exam Physical Exam: GENERAL: This is a 74 year old female in no acute distress. HEAD/FACE: Normocephalic and atraumatic. EYES: No drainage or conjunctival injection. ENT: Nose without bleeding or discharge. Oral mucosa moist. NECK: Full ROM without apparent pain. No swelling or masses noted. RESPIRATORY: Patient with unlabored breathing. No signs of respiratory distress. CHEST/AXILLA: Chest movement symmetrical. No deformities noted. ABDOMEN/GI: No distension. Intrathecal pump is located in the left lower abdomen. No notable skin breakdown, warmth, or drainage. BACK: Moves without difficulty SKIN: [place], warm and dry. MS/EXTREMITY: Unable to dorsiflex right foot. No evidence of lower extremity spasticity or rigidity. NEURO: Alert and appears oriented. Speech is fluent. Cranial Nerves are grossly intact. PSYCH: Alert, pleasant, affect is calm Results (Pain Clinic) Diagnostic Review MRI Findings: MR lumbar spine wo/w con CLINICAL HISTORY: 74 years-old Female with right foot drop. Acute on chronic low back pain with right lower family radicular symptoms COMPARISON: CT pelvis 09/15/2025, MRI lumbar spine December 27, 2018 TECHNIQUE: Multiplanar, multi sequence MRI of the lumbar spine was performed with and without intravenous contrast. FINDINGS: 31 degrees levoscoliosis measured from L1-L4. The vertebral body heights are normal. There is no T1 fracture line or marrow replacement process. The conus terminates at L1. The visualized spinal cord and cauda equina are normal. There is no paraspinal edema, mass, or prevertebral fluid collection. There are a few renal cysts measuring up to approximately 4 cm on the right. There is a large hiatal hernia. Artifact related to a battery pack within the left lower abdominal wall. Study is mildly motion degraded. Severe multilevel intervertebral disc space narrowing, spondylitic spurring and facet arthrosis. Trace fluid within the L2-L3 disc space is likely on a degenerative basis. No significant marrow edema or endplate erosions. Mild intermixed Modic degeneration is noted at several levels, most pronounced at L1-L2 and L2-L3 with mild related enhancement. Posterior disc osteophyte complex formation with ligamentum flavum thickening and advanced facet arthrosis in the lower thoracic spine redemonstrated. At T10- T11 there is moderate central canal stenosis with AP dimension of the thecal sac measuring 7 mm. Mild to moderate bilateral neural foraminal narrowing at this level. T12-L1: Posterior disc osteophyte complex is largest centrally. Ligamentum flavum thickening with moderate facet arthrosis. Flattening of the ventral thecal sac without significant central canal stenosis. The neural foramen are also patent. L1-L2: Posterior disc osteophyte complex. Ligamentum flavum thickening with moderate facet arthrosis.Mild central canal stenosis with AP dimension of the thecal sac measuring 9 mm. There is at least moderate narrowing of the lateral recesses. Mild left with moderate right neural foraminal narrowing is similar to prior. L2-L3: Severe intervertebral disc space narrowing. Small posterior disc osteophyte complex with moderate facet arthrosis. Mild central canal stenosis, AP dimension of the thecal sac measuring 9 mm. Moderate narrowing of the right lateral recess. The left neural foramen is patent. Moderate to severe right neural foraminal narrowing has worsened from prior. L3-L4: Moderate intervertebral disc space narrowing. Posterior disc osteophyte complex with ligamentum flavum thickening and advanced facet arthrosis. There is a round structure within the left paracentral space/left lateral recess on image 12 series 6 image 14 series 3 measuring 8 x 5 x 10 mm posterior to the L3 vertebral body, new from prior which appears to extend from the adjacent L3-L4 disc space. This may abut the adjacent left L4 nerve root causing at least mild left lateral recess narrowing. Moderate central canal stenosis with AP dimension of the thecal sac measuring 7 mm. The left neural foramen is patent. Mild right neural foraminal narrowing. L4-L5: Moderate intervertebral disc space narrowing. Small posterior disc osteophyte complex with moderate facet arthrosis. Central canal and right neuroforamen are patent. Moderate left lateral recess narrowing. Mild left neural foraminal stenosis is similar to prior. L5-S1: Small circumferential disc osteophyte complex with moderate facet arthrosis. Central canal and right neural foramen are patent. Minimal left neural foraminal stenosis. IMPRESSION: 1. No acute fracture, subluxation or significant marrow edema. 2. 10 mm disc extrusion versus sequestered disc fragment at L3-L4 as above contributes to cause moderate central canal stenosis at this level. 3. Multilevel neural foraminal stenosis as above with progression at L2-L3 compared to 12/27/2018. 4. Levoscoliosis. 5. No abnormal enhancement. ACT 112: Negative or not required by law. The above report was generated using voice recognition software. It may contain grammatical, syntax or spelling errors. Electronically signed by: Nasir Mccauley M.D. 09/16/2025 10:[address] Findings: Exam(s): CT PELVIS With Contrast IV Amt: 90 ml optiray 320 EXAM: CT Pelvis With Intravenous Contrast CLINICAL HISTORY: Reason for exam: Gluteal mass, inguinal adenopathy. TECHNIQUE: Axial computed tomography images of the pelvis with intravenous contrast. CTDI is 13.13 mGy and DLP is 417.46 mGy-cm. Automated exposure control was utilized for the study. A dose lowering technique was utilized adhering to the principles of ALARA. CONTRAST: Patient received 90 ml optiray 320 of IV contrast COMPARISON: 10/01/2024 FINDINGS: Medication pump implanted in the left abdominal wall with epidural catheter extending into the thoracic spinal canal. Visualized bowel-gas pattern is nonobstructive. There is moderate stool in the colon. There is atherosclerosis of the lower visualized aorta and the iliac arteries. There is no aneurysm of the visualized lower aorta. There is no adenopathy. There is trace free pelvic fluid. There is no free air. There is contrast within the urinary bladder. Numerous small bladder diverticula are present. There is a small volume of bladder gas suggesting recent instrumentation. Bladder wall is thickened. Uterus is not visualized and is presumed surgically absent. Bones are demineralized. There is disc and facet degeneration in the visualized lumbar spine. There is an old sacral fracture of the S3 level. There is an old right pubic bone fracture. A left hip hemiarthroplasty is in place. There is a thick-walled collection within the left gluteus katelyn muscle measuring 10.5 x 6.7 cm, abutting the left ischial tuberosity. There is subcutaneous stranding and skin thickening in the bilateral gluteal regions. Incidentally noted intramuscular lipoma in the right adductor compartment. There is a stable fat containing left-sided spigelian hernia. IMPRESSION: 1. Thick-walled fluid collection, presumed abscess, in the left gluteus katelyn muscle measuring 10.5 x 6.7 cm. This abuts the cortical margin of the left ischial tuberosity. 2. Bilateral gluteal cellulitis, [id number]. 3. Bladder wall thickening. Small volume of gas in the bladder presumed related to recent instrumentation. Correlate with urinalysis to assess for cystitis. Electronically signed by: Osorio Benítez M.D. 09/15/25 23:53 PM
[2025-09-17] MEDS ORDERED: LOSARTAN POTASSIUM 25 MG TAB PO SCH (09:00)
[2025-09-17] MEDS ORDERED: ESCITALOPRAM OXALATE 10 MG TAB PO SCH (09:00)
[2025-09-17] MEDS: HEPARIN SOD 5,000 UNIT/0.5 ML VIAL SQ SCH (09:11)
--- NOTE | 2025-09-17 10:06 | Orthopedic Consultation ---
Date of Service September 17, 2025 Assessment & Plan (1) Gluteal abscess: * Case/imaging reviewed and discussed with Dr Morales * Recommend IR aspiration/drainage of fluid collection with culture * ESR/CR-P ordered and pending * Low concern for infection/joint involvement given length of symptoms and lack of pain * Weight bearing status: Activity as tolerated * Daily treatment: Physical Therapy/ Occupational Therapy per protocol * Pain control * Disposition: TBD * Remainder care per primary team * Will continue to follow (2) Foot drop, right: * AFO ordered per report, will require when ambulatory * Outpatient monitoring, neurology f/u Plan * History of Present Illness Reason for Consultation: Left gluteal fluid collection Requesting Physician: . Attending Physician: Fernando Armenta MD .Patient is a 74 y/o female with left gluteal fluid collection. PMH including Progressive MS, PE, CAD. HTN, chronic anemia, Afib, aortic valve stenosis, PUD. Surgical history including left hip hemiarthroplasty with Dr Morales in 2006, and right reverse total shoulder arthroplasty with Dr Oneil in 2021. Presents to hospital with new onset foot drop and was admitted for further evaluation. Reports is started suddenly about 2-3 days ago. Upon intact was noted to have palpable gluteal mass. This is nontender, only bothers her when sitting directly on it. Has been present for several months without significant change. Current workup including CT pelvis demonstrates 10x6 cm fluid collecting in gluteal musculature, does not appear to communicate with existing hardware. Orthopedics consulted for management recommendations. Was seen yesterday by [facility] team who ordered IR aspiration and fluid analysis. [facility] at patient's request given history. At time of exam patient lying comfortably in bed, no acute distress. Reports no pain in her left hip/gluteal area. Active motion of the left hip and leg without pain or limitation. Denies new onset tingling or numbness of LLE. So far labs only significant for WBC 11, ESR and CRP not collected at time of note. Allergies Allergy/AdvReac Type Severity Reaction Status Date / Time No Known Allergies Allergy Verified 02/05/25 11:22 Home Medications Medication Instructions Recorded Confirmed Type cholecalciferol (vitamin D3) 25 2,000 units PO QAM 09/18/18 09/15/25 History mcg (1,000 unit) capsule oxybutynin chloride 15 mg 15 mg PO QAM 09/18/18 09/15/25 History tablet,extended release 24 hr prednisone 10 mg tablet 10 mg PO QAM 09/18/18 09/15/25 History teriflunomide 14 mg tablet 14 mg PO QPM 05/13/22 09/15/25 History (Aubagio) doxycycline hyclate 50 mg capsule 50 mg PO Q2D Rosacea 08/10/22 09/15/25 History melatonin 3 mg tablet 3 mg PO HS 03/05/23 09/15/25 History apixaban 5 mg tablet (Eliquis) 5 mg PO BID 02/03/24 09/15/25 History atorvastatin 40 mg tablet 40 mg PO QAM 09/13/24 09/15/25 History metoprolol succinate 25 mg 37.5 mg (1.5 x 25 mg) PO BID #60 02/23/25 09/15/25 Rx tablet,extended release 24 hr tabs tizanidine 4 mg tablet (Zanaflex) 4 mg PO Q6H PRN Muscle Spasm #0 02/23/25 1 Rx tabs ferrous sulfate 325 mg (65 mg 325 mg PO QAM 03/11/25 09/15/25 History iron) tablet,delayed release L.acidop,casei,lactis,rham-B.lact,luis miguel 1 cap PO DAILY #30 caps 03/16/25 09/15/25 Rx 625 mg (10 billion cell) capsule (Advanced Probiotic) escitalopram oxalate 10 mg tablet 10 mg PO QAM 09/15/25 09/15/25 History pantoprazole 40 mg tablet,delayed 40 mg PO QAM 09/15/25 09/15/25 History release Past Med/Surg History Problem List (Updated 09/17/25 @ 08:47 by Beatrice Goetz PA-C) Gluteal abscess Abnormal CT scan, pelvis Acute UTI (Acute) Anemia (Acute) Leukocytosis (Acute) Right leg weakness (Acute) Asymptomatic bacteriuria Foot drop, right Chronic progressive multiple sclerosis Enterococcus faecalis infection Pseudomonas aeruginosa infection Non-healing wound of left lower extremity Cellulitis of left lower extremity Acute dehydration (Acute) Weakness (Acute) Sepsis Confusion (Acute) Dyslipidemia Peptic ulcer disease Nonrheumatic aortic (valve) stenosis Iron deficiency anemia Weakness (Acute) PSVT (paroxysmal supraventricular tachycardia) Chronic osteomyelitis involving right ankle and foot Leukocytosis (Acute) Paroxysmal atrial fibrillation Rosacea Traumatic open wound of left lower leg (Acute) Cellulitis of left lower leg (Acute) HX: breast cancer Left breast cancer with surgery and chemo/radiation-left arm restriction Chronic anemia Hypertension CAD (coronary artery disease) Non-obstructive per 06/2021 cardiac cath History of pulmonary embolism ~ 6 yrs ago, IVC filter still in place History of DVT (deep vein thrombosis) ~6 yrs ago Multiple sclerosis (Chronic) Follows with Dr. Walker/[facility] Stable Neurogenic bladder (Chronic) Presence of intrathecal pump (Chronic) Filled with Normal Saline S/P IVC filter (Chronic) H/O left mastectomy (Chronic) with lymph node removal>LEFT ARM RESTRICTION Medical History Adult failure to thrive Ambulatory dysfunction Generalized weakness Immunocompromised due to corticosteroids Non-ST elevation TN (NSTEMI) Hypomagnesemia Elevated lactic acid level Complicated UTI (urinary tract infection) Lower extremity cellulitis Septic shock Shock circulatory Contusion of face Head injury Fall Cellulitis Sepsis Osteoarthritis of knees, bilateral Knee pain Septic prepatellar bursitis Wound infection CLABSI (central line-associated bloodstream infection) Bacteremia Fungemia Myocardial strain Tachycardia Hypomagnesemia Diarrhea Acute deep vein thrombosis of left lower extremity Traumatic open wound of right lower leg Catheter-associated urinary tract infection Leg wound, right Sepsis Skin tear of left upper extremity Chronic refractory osteomyelitis of ankle Surgical wound, non healing Osteomyelitis of ankle Chronic ulcer of right foot Sepsis Paroxysmal atrial fibrillation Lower extremity edema Traumatic open wound of left lower leg with delayed healing Ulcer of right ankle Paroxysmal atrial fibrillation with RVR Hypotension Acute UTI Elevated lactic acid level Hypotension Elevated troponin I level Sepsis Elevated troponin Multiple sclerosis Sepsis Closed right scapular fracture Encounter for pre-operative examination UTI (urinary tract infection) History of supraventricular tachycardia GERD (gastroesophageal reflux disease) controlled, stable per pt Raynaud disease Osteoporosis Breast cancer Left (17 years ago) Gastric ulcer Osteoarthritis of right knee Cellulitis of right lower extremity Anemia Cellulitis Acute leg pain Fever History of recent hospitalization 09/2022 [facility] - sepsis History of blood transfusion Limb alert care status left arm Osteoarthritis of right shoulder History of GI bleed Upper GIB (2019) felt 2/2 NSAID use History of non-ST elevation myocardial infarction (NSTEMI) 06/2021 (had heart cath, no stents) Hx of gastric ulcer 02/2021 Anemia Hypertension controlled, stable per pt Surgical History (Updated 09/17/25 @ 08:47 by Beatrice Goetz PA-C) Status post reverse total replacement of right shoulder (~04/2022) History of appendectomy S/P partial hysterectomy History of open reduction and internal fixation (ORIF) procedure "left hip" History of removal of Port-a-Cath (02/09/24) Mediport Removal(Right) - Tristin Lazo, DO Port-A-Cath in place (09/29/23) A-Port Insertion, right internal jugular(Right) - Tristin Lazo, DO S/p reverse total shoulder arthroplasty right: 05/25/22 LMA#4. No postop issues per anesthesia progress note. History of cardiac cath Cardiac cath (07/06/21; [facility]) > Right dominant coronary system. No evidence of aortic stenosis. Normal left ventricular filling pressures. Nonobstructive disease involving the ostial LAD. No evidence of acute coronary syndrome. Approximately 50% ostial stenosis of the LAD. There was some very mild disease at the ostium of the left circumflex. Recommendations: Medical management. 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 Physical Exam . * General: Alert and oriented, no acute distress * Constitutional: well-developed, well-nourished. * Respiratory: Normal respiratory effort, no distress * Gastrointestinal: No tenderness to palpation, no rigidity or guarding. * Skin: No rash or lesion. * Neurologic: Grossly normal * Musculoskeletal: Left hip region with well healed surgical incision. No local erythema, wound drainage, or skin breakdown. Palpable fluid collection of the gluteal muscles. No TTP of the fluid collection, gluteal region, or elsewhere proximal thigh. No pain with log roll, active hip flexion, or IR/ER. AROM foot/ankle intact. Sensation intact plantar/dorsal foot. Brisk capillary refill. Results & Data Results & Data Laboratory Results . 09/15/25 14:41 Urine Culture - Final Urine,Clean Catch Klebsiella pneumoniae 09/17/25 06:25 WBC 8.27 RBC 3.51 L Hgb 9.3 L Hct 30.3 L MCV 86.3 MCH 26.5 MCHC 30.7 L RDW Std Deviation 54.2 H RDW Coeff of Tiffanie 17.3 H Plt Count 287 MPV 10.7 ESR 53 H Sodium 140 Potassium 4.1 Chloride 106 Carbon Dioxide 28 Anion Gap 6 BUN 34 H Creatinine 1.01 Est Cr Clr Drug Dosing 43.5 eGFR 59.15 BUN/Creatinine Ratio 33.7 H Glucose 128 H Calcium 8.7 C-Reactive Protein 0.64 H Diagnostic Findings . Lumbar Spine MRI 09/16/25 07:12 MR lumbar spine wo/w con CLINICAL HISTORY: 74 years-old Female with right foot drop. Acute on chronic low back pain with right lower family radicular symptoms COMPARISON: CT pelvis 09/15/2025, MRI lumbar spine December 27, 2018 TECHNIQUE: Multiplanar, multi sequence MRI of the lumbar spine was performed with and without intravenous contrast. FINDINGS: 31 degrees levoscoliosis measured from L1-L4. The vertebral body heights are normal. There is no T1 fracture line or marrow replacement process. The conus terminates at L1. The visualized spinal cord and cauda equina are normal. There is no paraspinal edema, mass, or prevertebral fluid collection. There are a few renal cysts measuring up to approximately 4 cm on the right. There is a large hiatal hernia. Artifact related to a battery pack within the left lower abdominal wall. Study is mildly motion degraded. Severe multilevel intervertebral disc space narrowing, spondylitic spurring and facet arthrosis. Trace fluid within the L2-L3 disc space is likely on a degenerative basis. No significant marrow edema or endplate erosions. Mild intermixed Modic degeneration is noted at several levels, most pronounced at L1-L2 and L2-L3 with mild related enhancement. Posterior disc osteophyte complex formation with ligamentum flavum thickening and advanced facet arthrosis in the lower thoracic spine redemonstrated. At T10- T11 there is moderate central canal stenosis with AP dimension of the thecal sac measuring 7 mm. Mild to moderate bilateral neural foraminal narrowing at this level. T12-L1: Posterior disc osteophyte complex is largest centrally. Ligamentum flavum thickening with moderate facet arthrosis. Flattening of the ventral thecal sac without significant central canal stenosis. The neural foramen are also patent. L1-L2: Posterior disc osteophyte complex. Ligamentum flavum thickening with moderate facet arthrosis.Mild central canal stenosis with AP dimension of the thecal sac measuring 9 mm. There is at least moderate narrowing of the lateral recesses. Mild left with moderate right neural foraminal narrowing is similar to prior. L2-L3: Severe intervertebral disc space narrowing. Small posterior disc osteophyte complex with moderate facet arthrosis. Mild central canal stenosis, AP dimension of the thecal sac measuring 9 mm. Moderate narrowing of the right lateral recess. The left neural foramen is patent. Moderate to severe right neural foraminal narrowing has worsened from prior. L3-L4: Moderate intervertebral disc space narrowing. Posterior disc osteophyte complex with ligamentum flavum thickening and advanced facet arthrosis. There is a round structure within the left paracentral space/left lateral recess on image 12 series 6 image 14 series 3 measuring 8 x 5 x 10 mm posterior to the L3 vertebral body, new from prior which appears to extend from the adjacent L3-L4 disc space. This may abut the adjacent left L4 nerve root causing at least mild left lateral recess narrowing. Moderate central canal stenosis with AP dimension of the thecal sac measuring 7 mm. The left neural foramen is patent. Mild right neural foraminal narrowing. L4-L5: Moderate intervertebral disc space narrowing. Small posterior disc osteophyte complex with moderate facet arthrosis. Central canal and right neuroforamen are patent. Moderate left lateral recess narrowing. Mild left neural foraminal stenosis is similar to prior. L5-S1: Small circumferential disc osteophyte complex with moderate facet arthrosis. Central canal and right neural foramen are patent. Minimal left neural foraminal stenosis. IMPRESSION: 1. No acute fracture, subluxation or significant marrow edema. 2. 10 mm disc extrusion versus sequestered disc fragment at L3-L4 as above contributes to cause moderate central canal stenosis at this level. 3. Multilevel neural foraminal stenosis as above with progression at L2-L3 compared to 12/27/2018. 4. Levoscoliosis. 5. No abnormal enhancement. ACT 112: Negative or not required by law. The above report was generated using voice recognition software. It may contain grammatical, syntax or spelling errors. Electronically signed by: Nasir Mccauley M.D. 09/16/2025 10:12 AM PG Care Time/CCT Total # of Minutes Spent Total Time Spent with Patient: Total time spent is greater than 50% in coordination of care (as documented) at patient's floor/unit and/or counseling patient: [place] [address] IN/OBS CONSULT LVL 4,60M Patient Type New History Problem Focused Exam Problem Focused Medical Decision Making High Complexity Diagnoses Gluteal abscess L02.31 Foot drop, right M21.371
--- NOTE | 2025-09-17 10:08 | Orthopedic Progress Note ---
Date of Service September 17, 2025 Assessment & Plan (1) Foot drop, right: Plan: AFO brace when ambulatory Will need to follow-up with her neurologist in [place] Neurology consult is pending (2) Gluteal abscess: Plan: Will contact [facility] Ortho to notify them that Dr. Oneil/Andrew's patient is in house and the patient is requesting Dr. Oneil to continue care. Consult placed for interventional radiology to evaluate patient for possible ultrasound-guided or fluoroscopic aspiration of the left gluteal mass/abscess. If they are unable to do this due to the presence of her hemiarthroplasty on that side and due to her other comorbid issues she may need transfer to a tertiary care center for this procedure or possibly an open evacuation with irrigation debridement. Admission and Anticipated Discharge Date Admission Date: September 16, 2025 Subjective This 74-year-old female seen today for follow-up of a left gluteal mass and inability to dorsiflex her right foot. Patient states that the mass is loop tender. She states that she did meet with someone earlier this morning and advised her she may have the aspiration performed tomorrow. She was also notified by nursing staff that she will have a neurology consult today as well. Pain management has seen her and is addressing her pain pump issues. Otherwise she is very pleasant and has no complaints of chest pain, shortness of breath, fever, chills, sweats, nausea, vomiting, diarrhea or difficulty voiding. Review of Systems Review of Systems: All systems reviewed & are unremarkable except as noted in Subjective Physical Exam Physical Exam: Right lower extremity: Patient is unable to perform active straight leg raise test. She is unable to dorsi or plantarflex her foot and her right foot is in a plantarflexed position. She experiences a dull sensation with light palpation over the pads of her digits. She is able to move them. Forefoot and calf squeeze test are negative. Active knee flexion is to approximately 90 degrees. She has difficulty firing her quad. Her peripheral pulses are 1+. Left buttocks: Large fluctuant softball size mass over the gluteus katelyn that is tender to palpation and unchanged in appearance from evaluation yesterday. There is very mild erythema. There is no ecchymosis warmth or skin openings. Results & Data Vital Signs (Past 12 Hours) Vital Signs Temp Pulse Resp BP Pulse Ox O2 Del Method 09/17/25 08:08 36.3 C L 83 17 155/94 H 96 Room Air 09/16/25 23:39 36.8 C 76 16 100/65 96 Room Air Diagnostic Findings Laboratory Results WBC 8.27 K/ul (4.8-10.8) 09/17/25 06:25 RBC 3.51 M/uL (4.20-5.40) L 09/17/25 06:25 Hgb 9.3 g/dl (12.0-16.0) L 09/17/25 06:25 POC Hgb 12.2 g/dl (12.0-16.0) 09/15/25 13:04 Hct 30.3 % (37.0-47.0) L 09/17/25 06: POC Hct 36 % (37-47) L 09/15/25 13:04 MCV 86.3 fL (80.0-100.0) 09/17/25 06:25 MCH 26.5 pg (25.0-34.0) 09/17/25 06:25 MCHC 30.7 g/dL (32.0-36.0) L 09/17/25 06:25 RDW Std Deviation 54.2 fL (36.4-46.3) H 09/17/25 06:25 RDW Coeff of Tiff[place] 17.3 % (11.5-14.5) H 09/17/25 06:25 Plt Count 287 K/uL (130-400) 09/17/25 06:25 MPV 10.7 fL (9.4-12.4) 09/17/25 06:25 Immature Gran % (Auto) 0.2 % 09/15/25 13:00 Neut % (Auto) 90.7 % 09/15/25 13:00 Lymph % (Auto) 4.1 % 09/15/25 13:00 [place] % (Auto) 4.4 % 09/15/25 13:00 Eos % (Auto) 0.2 % 09/15/25 13:00 Baso % (Auto) 0.4 % 09/15/25 13:00 Neut # (Auto) 10.30 K/uL (1.40-6.50) H 09/15/25 13:00 Lymph # (Auto) 0.46 K/uL (1.20-3.40) L 09/15/25 13:00 [place] # (Auto) 0.50 K/uL (0.11-0.59) 09/15/25 13:00 Eos # (Auto) 0.02 K/uL (0.00-0.50) 09/15/25 13:00 Baso # (Auto) 0.05 K/uL (0.00-0.20) 09/15/25 13:00 Immature Gran # (Auto) 0.02 K/uL (0.01-0.20) 09/15/25 13:00 Toxic Vacuolation 2+ 09/15/25 13:00 ESR 53 mm/hr (0-30) H 09/17/25 06:25 POC Sodium 142 mmol/L (135-144) 09/15/25 13:04 Sodium 140 mmol/L (136-145) 09/17/25 06:25 POC Potassium 3.6 mmol/L (3.3-5.0) 09/15/25 13:04 Potassium 4.1 mmol/L (3.5-5.1) 09/17/25 06:25 POC Chloride 103 mmol/L (101-112) 09/15/25 13:04 Chloride 106 mmol/L (98-107) 09/17/25 06:25 Carbon Dioxide 28 mmol/L (21-32) 09/17/25 06:25 POC Total CO2 31 mmol/L (24-31) 09/15/25 13:04 Anion Gap 6 (3-11) 09/17/25 06:25 POC Anion Gap 12.0 mmol/L (16-25) L 09/15/25 13:04 POC BUN 31 mg/dl (7-18) H 09/15/25 13:04 BUN 34 mg/dl (6-23) H 09/17/25 06:25 Creatinine 1.01 mg/dl (0.6-1.2) 09/17/25 06:25 POC Creatinine 0.9 mg/dl (0.6-1.3) 09/15/25 13:04 Est Cr Clr Drug Dosing 43.5 ml/min 09/17/25 06:25 eGFR 59.15 09/17/25 06:25 BUN/Creatinine Ratio 33.7 (10-20) H 09/17/25 06:25 Glucose 128 mg/dl (70-99(Fasting)) H 09/17/25 06:25 POC Glucose (other) 95 mg/dl (70-99) 09/15/25 13:04 Calcium 8.7 mg/dl (8.6-10.3) 09/17/25 06:25 POC Ioniz Calcium Michael 1.01 mmol/l (1.12-1.32) L 09/15/25 13:04 Total Bilirubin 0.3 mg/dl (0.2-1.0) 09/15/25 13:00 AST 18 U/L (13-39) 09/15/25 13:00 ALT 13 U/L (7-52) 09/15/25 13:00 Alkaline Phosphatase 62 U/L (34-104) 09/15/25 13:00 C-Reactive Protein 0.64 mg/dl (0-0.5) H 09/17/25 06:25 Total Protein 6.8 gm/dl (6.0-8.3) 09/15/25 13:00 Albumin 3.4 gm/dl (3.4-5.0) 09/15/25 13:00 Globulin 3.4 gm/dl (2.5-4.0) 09/15/25 13:00 Albumin/Globulin Ratio 1.0 (0.9-2) 09/15/25 13:00 Lipase 10 U/L (11-82) L 09/15/25 13:00 Urine Color Yellow 09/15/25 14:41 Urine Appearance Clear (Clear) 09/15/25 14:41 Urine pH 5.5 (4.5-7.5) 09/15/25 14:41 Ur Specific [place] > 1.045 (1.000-1.030) H 09/15/25 14:41 Urine Protein Negative (Negative) 09/15/25 14:41 Urine Glucose (UA) Negative (Negative) 09/15/25 14:41 Urine Ketones Negative (Negative) 09/15/25 14:41 Urine Blood Negative (Negative) 09/15/25 14:41 Urine Nitrite Negative (Negative) 09/15/25 14:41 Urine Bilirubin Negative (Negative) 09/15/25 14:41 Urine Urobilinogen Negative (Negative) 09/15/25 14:41 Ur Leukocyte Esterase 1+ (Negative) H 09/15/25 14:41 Urine WBC (Auto) 21-50 /hpf (0-5) H 09/15/25 14:41 Urine RBC (Auto) 0-2 /hpf (0-2) 09/15/25 14:41 U Hyaline Cast (Auto) 0-2 /lpf (0-2) 09/15/25 14:41 U Epithel Cells (Auto) 3-5 /hpf (0-2) H 09/15/25 14:41 Urine Bacteria (Auto) 4+ (None Seen) H 09/15/25 14:41 Urine Comment 09/15/25 14:41 Impressions Head CTA 09/15/25 12:30 CT ANGIOGRAM OF THE BRAIN COMBO; CT ANGIOGRAM OF THE NECK CLINICAL HISTORY: Right lower extremity weakness. COMPARISON STUDY: CT of the brain dated 03/11/2025. TECHNIQUE: Unenhanced axial CT scan of the brain is performed. Subsequently, following the IV administration of 112 of Optiray 320, CT angiogram of the head and neck was performed from the aortic arch to the vertex. Images are reviewed in the axial, sagittal, and coronal planes. 3-D MIPS images are created and assessed. IV contrast was administered without complication. All measurements were calculated based on NASCET criteria. A dose lowering technique was utilized adhering to the principles of ALARA. CT DOSE: 1280.79 mGy.cm FINDINGS: Brain parenchyma: There is age-related involutional change noting moderate confluent subcortical and periventricular microangiopathic disease. There is no hemorrhage, mass effect, or evidence of acute territorial ischemia by CT criteria. There is no evidence of enhancing mass lesion on the angiogram phase images. The ventricles, sulci, and cisterns are prominent secondary to involutional change. Pulido-white matter differentiation is preserved. No extra- axial fluid collection is seen. Thoracic aorta: There is atherosclerotic calcification of the thoracic aorta. V isualized portions of the thoracic aorta are normal in caliber. The aortic arch demonstrates standard 3-vessel anatomy. Right carotid arterial system: The right common carotid artery is widely patent, as are the right internal and external carotid arteries. Calcified plaque is seen in the carotid bulb. Left carotid arterial system: The left common carotid artery is widely patent, as are the left internal and external carotid arteries. Calcified plaque is seen in the carotid bulb. Vertebral arteries: Widely patent bilaterally noting right sided dominance. Subclavian arteries: Widely patent bilaterally Intracranial vasculature: There is atherosclerotic calcification of the cavernous carotid arteries. The internal carotid arteries are patent at the skull base, as are the anterior and middle cerebral arteries bilaterally. The vertebrobasilar system and posterior cerebral arteries are widely patent. The right vertebral artery is dominant. There is origin of the left posterior cerebral artery. A posterior communicating artery is seen on the right. There is no aneurysm, high-grade stenosis, or focal vessel cut off seen throughout the intracranial circulation. Jugular veins: Patent bilaterally. Dural sinuses: Patent. Lung apices: Partially visualized upper lobe lung parenchyma appears clear. Soft tissues: The visualized pharyngeal soft tissues are normal in appearance noting angiographic phase technique. The oropharyngeal airway appears widely patent. The thyroid gland is atrophic and heterogeneous. The salivary are normal in appearance. No cervical lymphadenopathy is seen. Skeletal structures: The skeletal structures are osteopenic. The calvarium appears intact. The cervical spine is maintained noting advanced multilevel spondylosis. Orbits: The bony orbits are intact. Orbital contents are normal as visualized noting bilateral ocular lens implants. Sinuses and mastoids: There is moderate mucosal thickening in the left sphenoid sinus. The remaining paranasal sinuses are clear. The mastoid air cells are well pneumatized. IMPRESSION: 1. There is no hemorrhage, mass effect, or evidence of acute territorial ischemia by CT criteria. 2. Unremarkable CT angiogram of the brain. 3. Unremarkable CT angiogram of the neck. ACT 112: Negative or not required by law. Electronically signed by: Germán Villa M.D. 09/15/2025 1:36 PM Neck CTA 09/15/25 12:30 CT ANGIOGRAM OF THE BRAIN COMBO; CT ANGIOGRAM OF THE NECK CLINICAL HISTORY: Right lower extremity weakness. COMPARISON STUDY: CT of the brain dated 03/11/2025. TECHNIQUE: Unenhanced axial CT scan of the brain is performed. Subsequently, following the IV administration of 112 of Optiray 320, CT angiogram of the head and neck was performed from the aortic arch to the vertex. Images are reviewed in the axial, sagittal, and coronal planes. 3-D MIPS images are created and assessed. IV contrast was administered without complication. All measurements were calculated based on NASCET criteria. A dose lowering technique was utilized adhering to the principles of ALARA. CT DOSE: 1280.79 mGy.cm FINDINGS: Brain parenchyma: There is age-related involutional change noting moderate confluent subcortical and periventricular microangiopathic disease. There is no hemorrhage, mass effect, or evidence of acute territorial ischemia by CT criteria. There is no evidence of enhancing mass lesion on the angiogram phase images. The ventricles, sulci, and cisterns are prominent secondary to involutional change. Pulido-white matter differentiation is preserved. No extra- axial fluid collection is seen. Thoracic aorta: There is atherosclerotic calcification of the thoracic aorta. Visualized portions of the thoracic aorta are normal in caliber. The aortic arch demonstrates standard 3-vessel anatomy. Right carotid arterial system: The right common carotid artery is widely patent, as are the right internal and external carotid arteries. Calcified plaque is seen in the carotid bulb. Left carotid arterial system: The left common carotid artery is widely patent, as are the left internal and external carotid arteries. Calcified plaque is seen in the carotid bulb. Vertebral arteries: Widely patent bilaterally noting right sided dominance. Subclavian arteries: Widely patent bilaterally Intracranial vasculature: There is atherosclerotic calcification of the cavernous carotid arteries. The internal carotid arteries are patent at the skull base, as are the anterior and middle cerebral arteries bilaterally. The vertebrobasilar system and posterior cerebral arteries are widely patent. The right vertebral artery is dominant. There is origin of the left posterior cerebral artery. A posterior communicating artery is seen on the right. There is no aneurysm, high-grade stenosis, or focal vessel cut off seen throughout the intracranial circulation. Jugular veins: Patent bilaterally. Dural sinuses: Patent. Lung apices: Partially visualized upper lobe lung parenchyma appears clear. Soft tissues: The visualized pharyngeal soft tissues are normal in appearance noting angiographic phase technique. The oropharyngeal airway appears widely patent. The thyroid gland is atrophic and heterogeneous. The salivary are normal in appearance. No cervical lymphadenopathy is seen. Skeletal structures: The skeletal structures are osteopenic. The calvarium appears intact. The cervical spine is maintained noting advanced multilevel spondylosis. Orbits: The bony orbits are intact. Orbital contents are normal as visualized noting bilateral ocular lens implants. Sinuses and mastoids: There is moderate mucosal thickening in the left sphenoid sinus. The remaining paranasal sinuses are clear. The mastoid air cells are well pneumatized. IMPRESSION: 1. There is no hemorrhage, mass effect, or evidence of acute territorial ischemia by CT criteria. 2. Unremarkable CT angiogram of the brain. 3. Unremarkable CT angiogram of the neck. ACT 112: Negative or not required by law. Electronically signed by: Germán Villa M.D. 09/15/2025 1:[address] 09/15/25 16:56 Exam(s): CT PELVIS With Contrast IV Amt: 90 ml optiray 320 EXAM: CT Pelvis With Intravenous Contrast CLINICAL HISTORY: Reason for exam: Gluteal mass, inguinal adenopathy. TECHNIQUE: Axial computed tomography images of the pelvis with intravenous contrast. CTDI is 13.13 mGy and DLP is 417.46 mGy-cm. Automated exposure control was utilized for the study. A dose lowering technique was utilized adhering to the principles of ALARA. CONTRAST: Patient received 90 ml optiray 320 of IV contrast COMPARISON: 10/01/2024 FINDINGS: Medication pump implanted in the left abdominal wall with epidural catheter extending into the thoracic spinal canal. Visualized bowel-gas pattern is nonobstructive. There is moderate stool in the colon. There is atherosclerosis of the lower visualized aorta and the iliac arteries. There is no aneurysm of the visualized lower aorta. There is no adenopathy. There is trace free pelvic fluid. There is no free air. There is contrast within the urinary bladder. Numerous small bladder diverticula are present. There is a small volume of bladder gas suggesting recent instrumentation. Bladder wall is thickened. Uterus is not visualized and is presumed surgically absent. Bones are demineralized. There is disc and facet degeneration in the visualized lumbar spine. There is an old sacral fracture of the S3 level. There is an old right pubic bone fracture. A left hip hemiarthroplasty is in place. There is a thick-walled collection within the left gluteus katelyn muscle measuring 10.5 x 6.7 cm, abutting the left ischial tuberosity. There is subcutaneous stranding and skin thickening in the bilateral gluteal regions. Incidentally noted intramuscular lipoma in the right adductor compartment. There is a stable fat containing left-sided spigelian hernia. IMPRESSION: 1. Thick-walled fluid collection, presumed abscess, in the left gluteus katelyn muscle measuring 10.5 x 6.7 cm. This abuts the cortical margin of the left ischial tuberosity. 2. Bilateral gluteal cellulitis, [id number]. 3. Bladder wall thickening. Small volume of gas in the bladder presumed related to recent instrumentation. Correlate with urinalysis to assess for cystitis. Electronically signed by: Osorio Benítez M.D. 09/15/25 23:53 PM Lumbar Spine MRI 09/16/25 07:12 MR lumbar spine wo/w con CLINICAL HISTORY: 74 years-old Female with right foot drop. Acute on chronic low back pain with right lower family radicular symptoms COMPARISON: CT pelvis 09/15/2025, MRI lumbar spine December 27, 2018 TECHNIQUE: Multiplanar, multi sequence MRI of the lumbar spine was performed with and without intravenous contrast. FINDINGS: 31 degrees levoscoliosis measured from L1-L4. The vertebral body heights are normal. There is no T1 fracture line or marrow replacement process. The conus terminates at L1. The visualized spinal cord and cauda equina are normal. There is no paraspinal edema, mass, or prevertebral fluid collection. There are a few renal cysts measuring up to approximately 4 cm on the right. There is a large hiatal hernia. Artifact related to a battery pack within the left lower abdominal wall. Study is mildly motion degraded. Severe multilevel intervertebral disc space narrowing, spondylitic spurring and facet arthrosis. Trace fluid within the L2-L3 disc space is likely on a degenerative basis. No significant marrow edema or endplate erosions. Mild intermixed Modic degeneration is noted at several levels, most pronounced at L1-L2 and L2-L3 with mild related enhancement. Posterior disc osteophyte complex formation with ligamentum flavum thickening and advanced facet arthrosis in the lower thoracic spine redemonstrated. At T10- T11 there is moderate central canal stenosis with AP dimension of the thecal sac measuring 7 mm. Mild to moderate bilateral neural foraminal narrowing at this level. T12-L1: Posterior disc osteophyte complex is largest centrally. Ligamentum flavum thickening with moderate facet arthrosis. Flattening of the ventral thecal sac without significant central canal stenosis. The neural foramen are also patent. L1-L2: Posterior disc osteophyte complex. Ligamentum flavum thickening with moderate facet arthrosis.Mild central canal stenosis with AP dimension of the thecal sac measuring 9 mm. There is at least moderate narrowing of the lateral recesses. Mild left with moderate right neural foraminal narrowing is similar to prior. L2-L3: Severe intervertebral disc space narrowing. Small posterior disc osteo phyte complex with moderate facet arthrosis. Mild central canal stenosis, AP dimension of the thecal sac measuring 9 mm. Moderate narrowing of the right lateral recess. The left neural foramen is patent. Moderate to severe right neural foraminal narrowing has worsened from prior. L3-L4: Moderate intervertebral disc space narrowing. Posterior disc osteophyte complex with ligamentum flavum thickening and advanced facet arthrosis. There is a round structure within the left paracentral space/left lateral recess on image 12 series 6 image 14 series 3 measuring 8 x 5 x 10 mm posterior to the L3 v ertebral body, new from prior which appears to extend from the adjacent L3-L4 disc space. This may abut the adjacent left L4 nerve root causing at least mild left lateral recess narrowing. Moderate central canal stenosis with AP dimension of the thecal sac measuring 7 mm. The left neural foramen is patent. Mild right neural foraminal narrowing. L4-L5: Moderate intervertebral disc space narrowing. Small posterior disc osteophyte complex with moderate facet arthrosis. Central canal and right neuroforamen are patent. Moderate left lateral recess narrowing. Mild left neural foraminal stenosis is similar to prior. L5-S1: Small circumferential disc osteophyte complex with moderate facet arthrosis. Central canal and right neural foramen are patent. Minimal left neural foraminal stenosis. IMPRESSION: 1. No acute fracture, subluxation or significant marrow edema. 2. 10 mm disc extrusion versus sequestered disc fragment at L3-L4 as above contributes to cause moderate central canal stenosis at this level. 3. Multilevel neural foraminal stenosis as above with progression at L2-L3 compared to 12/27/2018. 4. Levoscoliosis. 5. No abnormal enhancement. ACT 112: Negative or not required by law. The above report was generated using voice recognition software. It may contain grammatical, syntax or spelling errors. Electronically signed by: Nasir Mccauley M.D. 09/16/2025 10:12 AM
--- NOTE | 2025-09-17 14:58 | Communication Note ---
Date of Service: September 17, 2025 I received a Neurology consult for this patient and I attempted to see her via tele video, however the tele video cart was not working. I chart reviewed the patient and discussed with Dr. Sera Dumont. patient is a 74-year-old Wheelchair-bound female with a past medical history of atrial fibrillation, chronic DVT, hypertension, hyperlipidemia, depression, multiple sclerosis with neurogenic bladder who presented to [facility] on 09/15/2025 with concern for left foot drop. MRI L-spine was performed which showed a 10 mm disc extrusion L3-4 with moderate canal stenoses and no lumbar spine enhancement. The patient was initially started on high-dose steroids for concern of multiple sclerosis exacerbation, but after MRI L-spine showed no enhancement, the patient was transitioned to prednisone [address] Dumont, the patient denies any lumbar spinal pain. Since patient is normally wheelchair-bound, I do recommend to continue prednisone 10 mg daily for moderate spinal canal stenoses. Since she denies pain, I would not recommend gabapentin or NSAIDs at this time. [facility] evaluated the patient and they recommended home with home health which patient does have already. She was provided with a brace. The patient has a gluteal abscess which is scheduled to be drained on 09/19/2025 and apixaban has been held for this procedure. I did advise to please call a stroke alert if the patient experiences acute neurologic symptoms while not on apixaban. Would recommend at least every 4 hours neuro checks. I will check in with the hospital team tomorrow and see the patient on tele video upon request if the carts are working. Thank you for this consult. Please call with questions.
--- NOTE | 2025-09-18 08:02 | Hospitalist Progress Note ---
Date of Service September 18, 2025 Assessment & Plan (1) Foot drop, right: (2) Chronic progressive multiple sclerosis: (3) Gluteal abscess: (4) Asymptomatic bacteriuria: (5) Neurogenic bladder: (6) Paroxysmal atrial fibrillation: (7) Hypertension: (8) Dyslipidemia: (9) Depression: Plan 74 year old female with PMH significant for CAD, HTN, dyslipidemia, aortic valve stenosis, PAF, history of SVT, chronic DVT, MS, neurogenic bladder, rosacea, anemia of chronic disease, depression, chronic venous insufficiency, and history of osteomyelitis who presented to the ED on 09/15/2025 with right foot drop. Right foot drop Patient presenting with inability to dorsiflex right foot Head and neck CTA negative Lumbar MRI revealed 10mm disc extrusion vs sequestered disc fragment at L3-L4 with moderate central canal stenosis, multilevel neural foraminal stenosis with progression at L2-L3 compared to prior study, no abnormal enhancement-> no abnormalities at L5-S1 level suggestive of etiology for foot drop Neurology consulted, discussed with Dr Forde via phone on 09/17, no concern for MS flare, recommending PT/OT PT/OT evaluations recommending return home when medically stable Recommend use of right foot brace given at prior facility Consider outpatient EMG Left gluteal mass Patient notes chronic mass (present for 4 months) that is tender when she is sitting on it Pelvis CT revealed thick walled fluid collection in left gluteus katelyn muscle measuring 10.5 x 6.7cm, presumed abscess and bilateral gluteal cellulitis L>R Initial leukocytosis resolved and no s/s of infection Continue Zosyn IR drainage planned for -> NPO at midnight Orthopedics will follow up outpatient Asymptomatic bacteriuria Neurogenic bladder UA +leuk esterase, WBC, bacteria but patient asymptomatic Pelvis CT notes bladder wall thickening Urine culture positive for pansensitive Klebsiella Likely chronically colonized due to neurogenic bladder and self catheterization Continue Zosyn for presumed abscess as above Continue oxybutynin for neurogenic bladder MS Follows with [facility] Neurology but exploring [facility] for baclofen pump management options (pump is currently filled with normal saline) On teriflunomide at home-> continue per Neuro Initially placed on solu-medrol 1g daily out of concern for MS flare but no abnormal enhancement on MRI-> resume home oral prednisone dose Continue tizanidine PRN Atrial fibrillation, history of SVT Chronic DVT Eliquis on hold for IR procedure on Continue metoprolol Hypertension Continue losartan Dyslipidemia Continue atorvastatin Depression Continue escitalopram DVT Prophylaxis: SQ Heparin-> Eliquis on hold for IR procedure Code Status: FULL CODE PCP: Siim Hernandez Disposition: anticipate DC to home with services after drain placement Patient seen in collaboration with Dr. Armenta. Please see addendum. I spent a total of 40 minutes coordinating, documenting and providing care for this patient excluding time spent in the performance of separately billed services or time spent by another provider/QHP. Admission and Anticipated Discharge Date Admission Date: September 16, 2025 Supervising Physician Co-Signing Physician Notes Patient is seen and examined at bedside. No new complaints. Reports right foot drop unchanged. Denies any numbness or tingling or pain of right foot. On exam patient is thin, frail, chronic ill appearing, normocephalic atraumatic, EOMI, normal breath sounds, clear to auscultation, S1-S2,+ murmur, abdomen soft, nontender, normal bowel sounds+ baclofen pump,+ left gluteal mass noted soft, fluctuant, alert, awake, oriented, grossly moves all extremities,+ right foot drop. Patient is admitted for right foot drop, ambulatory dysfunction. Appreciate neurology input. May need EMG as outpatient. Patient plans to follow-up with primary neurology in [place] on discharge. Ankle brace to be brought by family today. PT OT evaluated. Left gluteal mass/? Abscess. Empirically on Zosyn. Eliquis held. IR plans to drain likely tomorrow. I personally interviewed and examined the patient at bedside. I have reviewed the advanced practitioner's documentation on the date of service referred in note and agree with plan. Patient's care is coordinated with Sera BROWN. Please refer to the documentation above for details of patient's presentation and for discussion of other issues. I spent a total of20 minutes coordinating, documenting, and providing care for this patient excluding time spent in the performance of separately billed services or time spent by another provider/QHP. Subjective Patient seen resting in bed Reports foot drop is the same today Denies pain, decreased sensation, numbness of right foot Reports tenderness at left gluteus Denies chest pain, SOB, abdominal pain, N/V/D Review of Systems Review of Systems: All systems reviewed & are unremarkable except as noted in HPI & below Physical Exam Physical Exam: General/Psych: WD/WN, laying in bed, NAD, conversing easily, euthymic affect Head: normocephalic, atraumatic Eyes: normal inspection, PERRL, conjunctivae pink ENT: external ear and nose normal, oropharynx normal Neck: normal visual inspection, trachea midline Respiratory: normal respiratory effort, lungs clear to auscultation, no wheeze/rales/rhonchi, no accessory muscle use Cardiovascular: regular rate and rhythm, +murmur Extremities: no cyanosis or clubbing, normal peripheral pulses, no BLE edema Abdomen/GI: normal bowel sounds, soft, nontender Neurologic/MSK: A+Ox3, motor strength 5/5, moves all extremities, unable to dorsiflex right foot Skin: no rashes, normal color, warm and dry, fluctuant mass at left gluteus Results & Data Results & Data Vital Signs (Past 12 Hours) Vital Signs Temp Pulse Resp BP Pulse Ox O2 Del Method 09/18/25 07:16 36.3 C L 77 16 164/104 H 99 Room Air 09/18/25 00:30 36.6 C 66 16 99/58 L 96 Room Air 09/17/25 21:18 72 136/82 Laboratory Results Short CBC 09/18/25 Range/Units 12:45 WBC 8.69 (4.8-10.8) K/ul Hgb 10.1 L (12.0-16.0) g/dl Hct 33.1 L (37.0-47.0) % Plt Count 305 (130-400) K/uL BMP 09/18/25 12:45 Sodium 139 Potassium 4.0 Chloride 107 Carbon Dioxide 27 BUN 40 H Creatinine 1.16 Glucose 133 H Calcium 8.4 L I have independently reviewed and interpreted patient's labs including CBC and BMP. Medications Administered Current Inpatient Medications Acetaminophen (Acetaminophen 325 Mg Tab) 650 mg PO Q4H PRN PRN Reason: pain/fever Stop: 10/15/25 16:33 Al Hydrox/Mg Hydrox/Simethicone (Aluminum/Magnesium Susp 30 Ml Udc) 30 ml PO Q6H PRN PRN Reason: Dyspepsia Stop: 10/15/25 16:33 Apixaban (Apixaban 5 Mg Tablet) 5 mg PO BID MICHELLE Stop: 10/15/25 20:59 Last Admin: 09/15/25 20:44 Dose: 5 mg Atorvastatin Calcium (Atorvastatin 40 Mg Tab) 40 mg PO QAM [facility] Stop: 10/16/25 08:59 Last Admin: 09/17/25 08:15 Dose: 40 mg Escitalopram Oxalate (Escitalopram Oxalate 20 Mg Tab) 20 mg PO QAM [facility] Stop: 10/17/25 08:59 Last Admin: 09/17/25 08:16 Dose: 20 mg Heparin Sodium (Porcine) (Heparin Sod 5,000 Unit/0.5 Ml Vial) 5,000 units SQ Q12 [facility] Stop: 09/18/25 21:01 Last Admin: 09/17/25 21:19 Dose: 5,000 units Piperacillin Sod/Tazobactam Sod (Zosyn) 4.5 gm in 100 mls @ 25 mls/hr IV Q8H [facility]; Protocol Stop: 09/23/25 15:59 Last Infusion: 09/18/25 04:06 Dose: Infused Lactobacillus Acidophilus (Advanced Probiotic 625 Mg Capsule) 625 mg PO DAILY [facility] Stop: 10/17/25 08:59 Last Admin: 09/17/25 08:14 Dose: 625 mg Losartan Potassium (Losartan Potassium 50 Mg Tab) 50 mg PO QAM [facility] Stop: 10/17/25 08:59 Last Admin: 09/17/25 08:16 Dose: 50 mg Magnesium Hydroxide (Magnesium Hydroxide Susp 30 Ml Udc) 30 ml PO Q6H PRN PRN Reason: Constipation Stop: 10/15/25 16:33 Melatonin (Melatonin 3 Mg Tab) 6 mg PO HS PRN PRN Reason: Insomnia Stop: 10/15/25 16:33 Metoprolol Succinate (Metoprolol Succ 25mg Ext Rel Tab) 25 mg PO BID [facility] Stop: 10/16/25 20:59 Last Admin: 09/17/25 21:20 Dose: 25 mg Miscellaneous (Teriflunomide [Aubagio] 14 Mg - Order Awaiting Action) 1 each N/A QS [facility] Stop: 10/17/25 15:59 Last Admin: 09/17/25 23:26 Dose: Not Given Oxybutynin Chloride (Oxybutynin Chloride Xl 5 Mg Tabcr) 15 mg PO QAM [facility] Stop: 10/16/25 08:59 Last Admin: 09/17/25 08:15 Dose: 15 mg Pantoprazole Sodium (Pantoprazole 40 Mg Tab) 40 mg PO [facility] Stop: 10/16/25 08:59 Last Admin: 09/17/25 08:16 Dose: 40 mg Polyethylene Glycol (Polyethylene (Miralax) 17 Gm Pack) 17 gm PO DAILY PRN PRN Reason: Constipation Stop: 10/15/25 16:33 Prednisone (Prednisone 10 Mg Tablet) 10 mg PO [facility] Stop: 10/18/25 08:59 Tizanidine HCl (Tizanidine Hcl 4 Mg Tablet) 4 mg PO Q6H PRN PRN Reason: Muscle Spasm Stop: 10/15/25 16:33 Last Admin: 09/17/25 21:45 Dose: 4 mg Vitamin D (Cholecalciferol 25 Mcg (1000 Units) Tab) 50 mcg PO [facility] Stop: 10/16/25 08:59 Last Admin: 09/17/25 08:15 Dose: 50 mcg (7) Hypertension Hypertension type: primary hypertension Qualified Code(s): I10 - Essential (primary) hypertension
[2025-09-18 13:09] LABS: Hematocrit (blood only) 33.1 % (37.0-47.0); Hemoglobin 10.1 g/dl (12.0-16.0); Mean Corpuscular Hemoglobin 26.4 pg (25.0-34.0); Mean Corpuscular Volume 86.4 fL (80.0-100.0); Platelet Count 305 K/uL (130-400); RDW Standard Deviation 54.8 fL (36.4-46.3); Red Blood Count 3.83 M/uL (4.20-5.40); White Blood Count 8.69 K/ul (4.8-10.8)
[2025-09-18 13:20] LABS: Anion Gap 5.0 (3-11); Blood Urea Nitrogen 40.0 mg/dl (6-23); Calcium 8.4 mg/dl (8.6-10.3); Carbon Dioxide 27.0 mmol/L (21-32); Chloride 107.0 mmol/L (98-107); Creatinine Clr Calc Pharmacy 37.9 ml/min; Glucose 133.0 mg/dl (70-99(Fasting)); Potassium 4.0 mmol/L (3.5-5.1); Sodium 139.0 mmol/L (136-145)
[2025-09-18] MEDS: TERIFLUNOMIDE 14 MG TAB PO SCH (21:04)
[2025-09-18] MEDS: MELATONIN 3 MG TAB PO PRN (21:05)
[2025-09-19 07:35] LABS: Hematocrit (blood only) 32.5 % (37.0-47.0); Hemoglobin 10.6 g/dl (12.0-16.0); Mean Corpuscular Hemoglobin 27.9 pg (25.0-34.0); Mean Corpuscular Volume 85.5 fL (80.0-100.0); Platelet Count 281 K/uL (130-400); RDW Standard Deviation 55.3 fL (36.4-46.3); Red Blood Count 3.80 M/uL (4.20-5.40); White Blood Count 5.88 K/ul (4.8-10.8)
[2025-09-19 07:51] LABS: Anion Gap 6.0 (3-11); Blood Urea Nitrogen 37.0 mg/dl (6-23); Calcium 8.3 mg/dl (8.6-10.3); Carbon Dioxide 27.0 mmol/L (21-32); Chloride 107.0 mmol/L (98-107); Creatinine Clr Calc Pharmacy 48.8 ml/min; Glucose 80.0 mg/dl (70-99(Fasting)); Potassium 4.3 mmol/L (3.5-5.1); Sodium 140.0 mmol/L (136-145)
--- NOTE | 2025-09-19 08:04 | Orthopedic Progress Note ---
Date of Service September 19, 2025 Assessment & Plan (1) Gluteal abscess: * Case/imaging reviewed and discussed with Dr Morales * IR aspiration of fluid collection scheduled for today, will follow results * ESR 53, C-RP 0.64 * Low concern for infection/joint involvement given chronicity of symptoms and lack of pain * Weight bearing status: Activity as tolerated * Daily treatment: Physical Therapy/ Occupational Therapy per protocol * Pain control * Disposition: TBD * Remainder care per primary team * Will continue to follow (2) Foot drop, right: * AFO, will require when ambulatory * Outpatient monitoring, neurology f/u Subjective . Active Problems: L gluteal fluid collection, remote history L hip hemiarthroplasty 74 y/o female with L glute collection and remote history of L hip hemiarthroplasty. Overall comfortable. Scheduled for IR aspiration of collection today. Doing well overall. Denies fever/chills, chest pain/SOB, nausea/vomiting. Otherwise no complaints. Review of Systems All systems reviewed & are unremarkable except as noted in HPI & below. Physical Exam * Musculoskeletal: Left hip region with well healed surgical incision. No local erythema, wound drainage, or skin breakdown. Palpable fluid collection of the gluteal muscles. No TTP of the fluid collection, gluteal region, or elsewhere proximal thigh. No pain with log roll, active hip flexion, or IR/ER. AROM foot/ankle intact. Sensation intact plantar/dorsal foot. Brisk capillary refill. Results & Data Results & Data Laboratory Results . Diagnostic Findings . PG Care Time/CCT Total # of Minutes Spent Total Time Spent with Patient: Total time spent is greater than 50% in coordination of care (as documented) at patient's floor/unit and/or counseling patient: Coding [place] [address] SUB INP/OBS CARE 12/22MIN Patient Type Established History Problem Focused Exam Problem Focused Medical Decision Making Straight Forward Diagnoses Gluteal abscess L02.31 Foot drop, right M21.371
--- NOTE | 2025-09-19 14:09 | Ultrasound Report ---
ULTRASOUND-GUIDED LEFT GLUTEAL/THIGH FLUID COLLECTION PIGTAIL PLACEMENT INDICATION: Left gluteal/thigh complex fluid collection PROCEDURE: Procedure and risks were explained. Informed consent was obtained. A final timeout was com pleted. The left gluteal/thigh region was prepped and draped in sterile fashion. 1% lidocaine was uti lized for skin anesthesia. Utilizing ultrasound guidance, a 5 Anguillan safety centesis catheter was advanced into the left gluteal /thigh complex fluid collection. Approximately 20 mL of an fabricio-colored viscous fluid was removed an d sent to lab for analysis. The 5 Anguillan catheter was removed and exchanged for an 8 [place]guillan locking p igtail catheter under with ultrasound guidance. This was sutured to the skin with 2-0 silk and placed to suction bag drainage. The patient tolerated the procedure well. IMPRESSION: Left gluteal/thigh pigtail placement as detailed above. Performed, dictated, and signed by Gilberto Bridges PA-C; to be co-signed by Dr. Nasir Mccauley. Electronically signed by: Nasir Mccauley M.D. 09/19/2025 2:22 PM
--- NOTE | 2025-09-19 14:30 | Hospitalist Progress Note ---
Date of Service September 19, 2025 Assessment & Plan (1) Foot drop, right: (2) Chronic progressive multiple sclerosis: (3) Gluteal abscess: (4) Asymptomatic bacteriuria: (5) Neurogenic bladder: (6) Paroxysmal atrial fibrillation: (7) Hypertension: (8) Dyslipidemia: (9) Depression: Plan 74 year old female with PMH significant for CAD, HTN, dyslipidemia, aortic valve stenosis, PAF, history of SVT, chronic DVT, MS, neurogenic bladder, rosacea, anemia of chronic disease, depression, chronic venous insufficiency, and history of osteomyelitis who presented to the ED on 09/15/2025 with right foot drop. Right foot drop Patient presenting with inability to dorsiflex right foot Head and neck CTA negative Lumbar MRI revealed 10mm disc extrusion vs sequestered disc fragment at L3-L4 with moderate central canal stenosis, multilevel neural foraminal stenosis with progression at L2-L3 compared to prior study, no abnormal enhancement-> no abnormalities at L5-S1 level suggestive of etiology for foot drop Neurology consulted, discussed with Dr Forde via phone on 09/17, no concern for MS flare, recommending PT/OT PT/OT evaluations recommending return home when medically stable Recommend use of right foot brace given at prior facility Consider outpatient EMG Needs follow-up with neurology on discharge Left gluteal abscess Patient notes chronic mass (present for 4 months) that is tender when she is sitting on it Pelvis CT revealed thick walled fluid collection in left gluteus katelyn muscle measuring 10.5 x 6.7cm, presumed abscess and bilateral gluteal cellulitis L>R Initial leukocytosis resolved and no s/s of infection --S/P drain placement by IR --Follow-up gluteal abscess fluid cultures Continue Zosyn for now Will recheck with Ortho tomorrow when drain can be removed Needs follow-up with orthopedics on discharge Asymptomatic bacteriuria Neurogenic bladder UA +leuk esterase, WBC, bacteria but patient asymptomatic Pelvis CT notes bladder wall thickening Urine culture positive for pansensitive Klebsiella Likely chronically colonized due to neurogenic bladder and self catheterization Continue Zosyn for presumed abscess as above Continue oxybutynin for neurogenic bladder MS Follows with [facility] but exploring [facility] for baclofen pump management options (pump is currently filled with normal saline) On teriflunomide at home-> continue per Neuro Initially placed on solu-medrol 1g daily out of concern for MS flare but no a bnormal enhancement on MRI-> resume home oral prednisone dose Continue tizanidine PRN Atrial fibrillation, history of SVT Chronic DVT Eliquis on hold for IR procedure today Continue metoprolol Likely plan to resume Eliquis tomorrow if okay with Ortho Hypertension Continue losartan Dyslipidemia Continue atorvastatin Depression Continue escitalopram DVT Prophylaxis: SQ Heparin-> Eliquis on hold for IR procedure SCDs for today Code Status: FULL CODE PCP: Simi Hernandez Admission and Anticipated Discharge Date Admission Date: September 16, 2025 Subjective Patient is seen and examined at bedside Patient had drain placed for left gluteal fluid collection Continues to have right foot pain Offers no new complaints today Denies any chest pain, dyspnea, nausea, vomiting, abdominal pain Review of Systems Review of Systems: All systems reviewed & are unremarkable except as noted in Subjective Physical Exam Physical Exam: Physical Exam: Vitals signs as noted above General Appearance: Thin, frail, chronic ill appearing, no apparent distress Head: normocephalic, Atraumatic Eyes: normal inspection, EOMI Neck: supple, Trachea midline Respiratory/Chest: Normal breath sounds, CTA, No accessory muscle use Cardiovascular: S1, S2, + murmur Abdomen/GI:Soft, Non tender, Bowel sounds present,+ Baclofen pump Extremities/Musculoskeletal:normal inspection, no edema ,+Left gluteal mass with drain Neurologic/Psych:AAOX3, +Right foot drop, otherwise grossly no focal neurological deficits Skin: normal color, warm Results & Data Results & Data Vital Signs (Past 12 Hours) Vital Signs Temp Pulse Resp BP Pulse Ox O2 Del Method 09/19/25 10:53 36.7 C 80 16 155/92 H 98 Room Air 09/19/25 06:57 36.5 C 70 16 117/80 96 Room Air Laboratory Results Short CBC 09/19/25 Range/Units 07:04 WBC 5.88 (4.8-10.8) K/ul Hgb 10.6 L (12.0-16.0) g/dl Hct 32.5 L (37.0-47.0) % Plt Count 281 (130-400) K/uL BMP 09/19/25 07:04 Sodium 140 Potassium 4.3 Chloride 107 Carbon Dioxide 27 BUN 37 H Creatinine 0.90 Glucose 80 Calcium 8.3 L (7) Hypertension Hypertension type: primary hypertension Qualified Code(s): I10 - Essential (primary) hypertension
[2025-09-19 22:24] VITALS: RESP 18
[2025-09-20 07:17] VITALS: BP 134/84; PULSE 70; TEMP 98.2; O2SAT 96
[2025-09-20 08:18] LABS: Hematocrit (blood only) 33.2 % (37.0-47.0); Hemoglobin 10.5 g/dl (12.0-16.0); Mean Corpuscular Hemoglobin 27.3 pg (25.0-34.0); Mean Corpuscular Volume 86.5 fL (80.0-100.0); Platelet Count 257 K/uL (130-400); RDW Standard Deviation 55.6 fL (36.4-46.3); Red Blood Count 3.84 M/uL (4.20-5.40); White Blood Count 6.34 K/ul (4.8-10.8)
[2025-09-20 08:35] LABS: Anion Gap 5.0 (3-11); Blood Urea Nitrogen 32.0 mg/dl (6-23); Calcium 8.3 mg/dl (8.6-10.3); Carbon Dioxide 28.0 mmol/L (21-32); Chloride 107.0 mmol/L (98-107); Creatinine Clr Calc Pharmacy 49.9 ml/min; Glucose 82.0 mg/dl (70-99(Fasting)); Potassium 4.3 mmol/L (3.5-5.1); Sodium 140.0 mmol/L (136-145)
--- NOTE | 2025-09-20 08:57 | Orthopedic Progress Note ---
Date of Service September 20, 2025 Assessment & Plan (1) Gluteal abscess: * Case/imaging reviewed and discussed with Dr Morales * IR aspiration 09/19, drain in place * Fluid studies so far negative for infection. Fluid is serosanguineous with no purulence * Discussed drain management with IR, would maintain until output <10cc over 24 hour or following imaging confirmation of resolved collection * In theory could be managed at home if patient comfortable, home health? * Weight bearing status: Activity as tolerated * Daily treatment: Physical Therapy/ Occupational Therapy per protocol * Pain control * Disposition: TBD * Remainder care per primary team * Can follow in office next week (2) Foot drop, right: * AFO, will require when ambulatory * Outpatient monitoring, neurology f/u Subjective Active Problems: L gluteal fluid collection, remote history L hip hemiarthroplasty 74 y/o female with L glute collection and remote history of L hip hemiarthroplasty. IR aspiration yesterday, currently has drain in place with serosanguinous fluid, no purulence. Gram stain (-), culture pending. Doing well overall. Denies fever/chills, chest pain/SOB, nausea/vomiting. Otherwise no complaints. Review of Systems All systems reviewed & are unremarkable except as noted in HPI & below. Physical Exam * Musculoskeletal: Left hip region with well healed surgical incision. No local erythema, wound drainage, or skin breakdown. IR drain in place. Decreased palpable fluid collection. No TTP of the fluid collection, gluteal region, or elsewhere proximal thigh. No pain with log roll, active hip flexion, or IR/ER. AROM foot/ankle intact. Sensation intact plantar/dorsal foot. Brisk capillary refill. Results & Data Results & Data Laboratory Results . 09/19/25 Unknown Gram Stain - Final Buttock,Left Aerobic and Anaerobic Culture - Pending 09/20/25 08:02 WBC 6.34 RBC 3.84 L Hgb 10.5 L Hct 33.2 L MCV 86.5 MCH 27.3 MCHC 31.6 L RDW Std Deviation 55.6 H RDW Coeff of Tiffanie 17.7 H Plt Count 257 MPV 11.2 Sodium 140 Potassium 4.3 Chloride 107 Carbon Dioxide 28 Anion Gap 5 BUN 32 H Creatinine 0.88 Est Cr Clr Drug Dosing 49.9 eGFR 69.78 BUN/Creatinine Ratio 36.4 H Glucose 82 Calcium 8.3 L Diagnostic Findings . PG Care Time/CCT Total # of Minutes Spent Total Time Spent with Patient: Total time spent is greater than 50% in coordination of care (as documented) at patient's floor/unit and/or counseling patient: Coding Level of Care Code 91967 SUB INP/OBS CARE 2/35MIN Diagnoses Gluteal abscess L02.31 Foot drop, right M21.371
--- NOTE | 2025-09-20 12:25 | Discharge Summary ---
Date of Service September 20, 2025 Admission HPI Per Admitting Provider Patient 74-year-old female with known progressive Multiple sclerosis who is fairly debilitated from this. Mostly sedentary but does try to go to exercise class 3 times per week and use a stand-up walker. Presents to the emergency room today with complaints of a right foot drop that she noticed starting on Tuesday. Evaluation in the emergency room was unremarkable for laboratory findings. CT of the head was unremarkable. Patient was referred to our service for further evaluation. Time my evaluation the patient has no complaints other than this right foot drop. She states that she woke up Tuesday morning noticing the foot drop. She has good strength/her normal strength with plantarflexion but has no dorsiflexion of her right foot. She reports that she went to [facility] emergency department on Tuesday. She states that they did no imaging, the ER doctor called some colleagues per her report and then recommended a foot brace is to prevent the foot drop. Her symptoms persisted prompting her to come back to [facility] ER today. Additionally on September 09, 2025 patient was seen outpatient for some questionable generalized symptoms and potentially some weakness. Urine culture was sent and grew out Klebsiella that is pansensitive. She says she took 1 dose of the Keflex had 1 bout of diarrhea and subsequently has stopped the antibiotic. She denies any fever or chills, no new weakness o ther than the foot drop, no nausea, no vomiting, no abdominal pain. No other symptoms that could be attributable to a urinary tract infection. She does have chronic neurogenic bladder. She straight caths herself on a daily basis and as needed. Reviewing records seems like she has frequent "UTIs.". Again has had no symptoms relatable to UTI over the last 6 days since the urine culture was sent. Also denies any cough or cold symptoms. No chest pain, no shortness of breath. Patient follows with a neurologist in the [place] area. She does have an implanted baclofen pump. However she states that the pump is empty. She has not been able to find someone here in locally to refill the baclofen pump. She apparently has a previous history of osteomyelitis and pain management at [facility] is hesitant to refill it. They have tried oral baclofen without much success. Daughter at the bedside states that since the baclofen pump ran dry she has noticed a steady decline in her overall quality of life. The patient's stiffness, flexibility, chronic muscle spasms and mobility has significantly declined since the baclofen pump has been empty. Has not established with a local neurologist or explored options through [facility] pain management for local management of her baclofen pump. Admission Exam Per Admitting Provider Constitutional: Alert, no acute distress nontoxic HEENT: Mucous membranes moist. Sclera clear, poor dentition Neck: Soft, no adenopathy Lungs: Clear to auscultation, decreased, no wheezes rales or rhonchi CV: S1-S2, regular, grade 3/6 systolic ejection murmur Abdomen: Soft, nontender, nondistended Extremities: No significant edema Musculoskeletal: No significant joint tenderness Neuro: Patient with significant weakness to dorsiflexion of the right foot when compared to the left, this is new per patient report. Good strength with plantarflexion. Derm: Patient has chronic venous stasis changes of bilateral feet with purplish reddish discoloration of the skin. There is no evidence of cellulitis, she does have a chronic 0.5 cm superficial ulceration on her right lateral malleolus is present on admission. It is clean, no surrounding redness, no evidence of infection Psych: Cooperative, normal mood Principal Diagnosis Right foot drop Left gluteal abscess Asymptomatic bacteriuria Neurogenic bladder MS, ho Atrial fibrillation, history of SVT Chronic DVT Discharge Exam General Appearance: Thin, frail, chronic ill appearing, no apparent distress Head: normocephalic, Atraumatic Eyes: normal inspection, EOMI Neck: supple, Trachea midline Respiratory/Chest: Normal breath sounds, CTA, No accessory muscle use Cardiovascular: S1, S2, + murmur Abdomen/GI:Soft, Non tender, Bowel sounds present,+ Baclofen pump Extremities/Musculoskeletal:normal inspection, no edema ,+Left gluteal mass with drain , serosanguineous collection noted Neurologic/Psych:AAOX3, +Right foot drop, otherwise grossly no focal neurological deficits Skin: normal color, warm Discharge Data Allergies Allergy/AdvReac Type Severity Reaction Status Date / Time No Known Allergies Allergy Verified 02/05/25 11:22 Consultations 09/15/25 13:58 ED Decision to Admit Stat 09/15/25 16:34 Consult Neurology Routine 09/16/25 07:52 Consult General Surgery Routine 09/16/25 08:39 Consult Pain Management Routine 09/16/25 12:56 Consult Orthopedic Surgery Routine Ordered Studies 09/15/25 12:30 CT angio head wo/w Stat CT angio neck with con Stat 09/15/25 16:56 CT pelvis w/IV con only Routine 09/16/25 07:12 MR lumbar spine wo/w con Routine 09/19/25 08:42 IR AD US softtissperc w/gdnce Stat Hospital Course (1) Foot drop, right: (2) Chronic progressive multiple sclerosis: (3) Gluteal abscess: (4) Asymptomatic bacteriuria: (5) Neurogenic bladder: (6) Paroxysmal atrial fibrillation: (7) Hypertension: (8) Dyslipidemia: (9) Depression: Plan Per prior attending w/ Addendum: 74 year old female with PMH significant for CAD, HTN, dyslipidemia, aortic valve stenosis, PAF, history of SVT, chronic DVT, MS, neurogenic bladder, rosacea, anemia of chronic disease, depression, chronic venous insufficiency, and history of osteomyelitis who presented to the ED on 09/15/2025 with right foot drop. Right foot drop Patient presenting with inability to dorsiflex right foot Head and neck CTA negative Lumbar MRI revealed 10mm disc extrusion vs sequestered disc fragment at L3-L4 with moderate central canal stenosis, multilevel neural foraminal stenosis with progression at L2-L3 compared to prior study, no abnormal enhancement-> no abnormalities at L5-S1 level suggestive of etiology for foot drop Neurology consulted, discussed with Dr Forde via phone on 09/17, no concern for MS flare, recommending PT/OT PT/OT evaluations recommending return home when medically stable Recommend use of right foot brace given at prior facility Consider outpatient EMG Needs follow-up with neurology on discharge Left gluteal abscess Patient notes chronic mass (present for 4 months) that is tender when she is sitting on it Pelvis CT revealed thick walled fluid collection in left gluteus katelyn muscle measuring 10.5 x 6.7cm, presumed abscess and bilateral gluteal cellulitis L>R Initial leukocytosis resolved and no s/s of infection --S/P drain placement by IR --Follow-up gluteal abscess fluid cultures Continue Zosyn for now Will recheck with Ortho tomorrow when drain can be removed Needs follow-up with orthopedics on discharge Asymptomatic bacteriuria Neurogenic bladder UA +leuk esterase, WBC, bacteria but patient asymptomatic Pelvis CT notes bladder wall thickening Urine culture positive for pansensitive Klebsiella Likely chronically colonized due to neurogenic bladder and self catheterization Continue Zosyn for presumed abscess as above Continue oxybutynin for neurogenic bladder MS Follows with [facility] Neurology but exploring [facility] for baclofen pump management options (pump is currently filled with normal saline) On teriflunomide at home-> continue per Neuro Initially placed on solu-medrol 1g daily out of concern for MS flare but no abnormal enhancement on MRI-> resume home oral prednisone dose Continue tizanidine PRN Atrial fibrillation, history of SVT Chronic DVT Eliquis on hold for IR procedure today Continue metoprolol Likely plan to resume Eliquis tomorrow if okay with Ortho Hypertension Continue losartan Dyslipidemia Continue atorvastatin Depression Continue escitalopram DVT Prophylaxis: SQ Heparin-> Eliquis on hold for IR procedure SCDs for today Code Status: FULL CODE PCP: Simi Hernandez Addendum 09/20/2025: Patient was seen and examined at bedside for follow-up of right foot drop, left gluteal abscess status post drain placement on IV antibiotic, asymptomatic bacteriuria ISO neurogenic bladder. Patient is hemodynamically stable and reports feeling better. Per RN, drain output about 20 mL in last 24 hours. Discussed the case with orthopedics, no plan for drain removal today, ok to resume eliquis, plan to have her follow-up as an outpatient within a week time to evaluate for drain management/removal. Patient will be discharged on oral antibiotic, culture results is not yet finalized but Gram stain is negative with many WBCs indicating we may not be able to get any culture results. Patient's dtr Rea was given a phone call and discharge instructions were communicated. Patient has her other daughter's wedding tomorrow and would like to go home. Patient is being discharged with following instructions at the point of discharge: Follow-up with your primary care physician within a week time and likely you will need labs CBC/CMP/magnesium/phosphorus. Neurology evaluated you for your right foot drop, you will need neurology follow-up upon discharge, you will need outpatient EMG done, recommend to use right foot brace. You underwent drain placement for your left gluteal abscess, you will have home health to help manage drain. Continue to note the amount of drain every 24 hours, you will need to follow-up with orthopedics in 3 to 5 days time upon discharge for further management of the drain/removal. You will be discharged on Augmentin for 7 more days to complete the course, if left buttock swelling/redness/drain is increasing or drain becomes foul-smelling or you get fever/tired/weak, return to emergency department. Take your medications as prescribed. Please make sure that you are able to get your medications today by calling your pharmacy before you leave the hospital so that your treatment continuity is not broken. Home Health Attestation I certify that this patient is under my care and that I, or a physicians funeral home assistant working with me, had a face to-face encounter that meets the home health ffcx-on-yjey encounter requirements with this patient. The encounter with the patient was in whole, or in part, for the following medical condition, which is the primary reason for home health care (list medical condition): I certify that, based on my findings, the following services are medically necessary home health services: My clinical findings support the need for the above services because: OT Assess ADL Status and Restore Function w ADLs Skilled Nsg Assessment Further, I certify that my clinical findings support that this patient is homebound (i.e. absences from home require considerable and taxing effort and are for medical reasons or episcopalian services or infrequently or of short duration when for other reasons) because: Transportation Assistance/Unable to Leave Home Unassisted Certification for Home Health Services: Based on the above findings, I certify that this patient is confined to the home and needs intermittent correction care, physical therapy and/or speech therapy or continues to need occupational therapy. The patient is under my care, and I have initiated the establishment of the plan of care. This patient will be followed by a physician who will periodically review the plan of care. Total Time Total Time Spent Total Time Spent (In Minutes): 50 Discharge Plan Discharge Items Patient Disposition: Home - Home Health Services Reason For Visit: FOOT DROP Discharge Diagnosis: Right foot drop Left gluteal abscess Asymptomatic bacteriuria Neurogenic bladder MS, ho Atrial fibrillation, history of SVT Chronic DVT Condition on Discharge: Fair Activity: Resume your previous activity Non-emergency contact: Primary Care Provider Call non-emergency contact if: you have any medication questions Follow-up/Referrals: Toby Morales MD [Physician] - 09/27/25 8:50 am Andrea Walker MD [Physician] - 10/07/25 10:40 am Simi Hernandez CRNP [Primary Care Provider] - (Date & Time 09/26/2025 3:00 PM Provider: Simi Hernandez CRNP [facility] ) Diet: Regular Addtl Attending Provider Instructions: Follow-up with your primary care physician within a week time and likely you will need labs CBC/CMP/magnesium/phosphorus. Neurology evaluated you for your right foot drop, you will need neurology follow-up upon discharge, you will need outpatient EMG done, recommend to use right foot brace. You underwent drain placement for your left gluteal abscess, you will have home health to help manage drain. Continue to note the amount of drain every 24 hours, you will need to follow-up with orthopedics in 3 to 5 days time upon discharge for further management of the drain/removal. You will be discharged on Augmentin for 7 more days to complete the course, if left buttock swelling/redness/drain is increasing or drain becomes foul-smelling or you get fever/tired/weak, return to emergency department. Take your medications as prescribed. Please make sure that you are able to get your medications today by calling your pharmacy before you leave the hospital so that your treatment continuity is not broken. Addtl Process Supervisor Provider Instructions: Drain care * Maintain drain until removed in office * Record output at least once daily, removal will be based on drainage volume * Drain is sutured into skin and will remain in place. Keep clean dry dressing intact, may replace with gauze/tape as needed * Ok to shower with the drain, allow soap/water to run over the drain site but do not scrub at or soak the area * The office should be in contact regarding an appointment next week Pending Studies at Discharge: Yes Stand-Alone Forms: [email or web address], Smoking Cessation Medications and DC Order Prescriptions: New amoxicillin-pot clavulanate 875-125 mg Tablet 1 tab PO BIDM 7 Days Qty: 14 0RF Advanced Probiotic 625 mg (10 billion cell) Capsule 1 cap PO DAILY 14 Days Qty: 14 0RF Continued prednisone 10 mg tablet 10 mg PO QAM oxybutynin chloride 15 mg tablet extended release 24hr 15 mg PO QAM cholecalciferol (vitamin D3) 1,000 unit capsule 2,000 units PO QAM teriflunomide [Aubagio] 14 mg tablet 14 mg PO QPM melatonin 3 mg Tablet 3 mg PO HS Eliquis 5 mg tablet 5 mg PO BID Rx Instructions: 5 mg po bid atorvastatin 40 mg tablet 40 mg PO QAM tizanidine [Zanaflex] 4 mg tablet 4 mg PO Q6H PRN (Reason: Muscle Spasm) Qty: 0 0RF pantoprazole 40 mg tablet,delayed release (DR/EC) 40 mg PO QAM escitalopram oxalate 10 mg tablet 20 mg PO QAM losartan 50 mg tablet 50 mg PO DAILY metoprolol succinate 25 mg tablet extended release 24 hr 25 mg PO BID Discharge Orders: Discharge Order (Routine); Ordered 09/20/25 Ordered By: Tianna Smith Admission Data Admit Date/Time: 09/16/25 11:17 Attending Provider: Tianna Smith Admit Provider: Robin Childs Primary Care Provider: Simi Hernandez Other Providers: Robin Childs; Sybil Cook; Dennis Coon; Hannah Fishman; Spike Alejandra; [facility] Fax
[2025-09-20] MEDS ORDERED: AMOXICILLIN/CLAVULANATE 875 MG TAB PO SCH (17:00)
== END 2025-09-20 15:36 | disposition home health service (06) | DRG 565 ==
LOC: ED 12:04 → 3N 12:04 → SUATTDRO 14:44 → 3N 16:02 → SUATTDRO 09-16 11:17 → 3N 09-16 20:50